=== PATIENT | female | born 1950 | race African-American/Black ===

== ENCOUNTER 2016-06-18 08:00 | Inpatient (IN) | payer MEDICARE, MEDICAID ==
[~2016-06-18] VITALS: Ht 157.5 cm; Wt 52.6 kg
[2016-06-18] VITALS (45 sets, daily range): BP systolic 85–145; BP diastolic 51–97; PULSE 68–105; RESP 0–25; TEMP 97.7; Ht 157.5 cm; Wt 52.6 kg
[~2016-06-18 08:00] MED LIST: ACID1TAB14 PO; ALPR0.5T PO; ASCO500S2 PO; ATOR20TA38 PO; CLOP75TA27 PO; DIAZ10TA4 PO; DOCU-144 PO; DOXA2TAB61 PO; DULO20CA43 PO; FAMO20TA18 PO; FER325 PO; GABA300C16 PO; IPRA3AMP INHALATION; LEVO125T79 PO; LOSA50TA2 PO; METO-429 PO; MORP60TA37 PO; PANT40TA4 PO; ZOLP5TAB PO
[2016-06-18] MEDS ORDERED: CEFEPIME 2GM/50 ML (PMX) 50 ML IVPB STA (08:15)
[2016-06-18] MEDS ORDERED: SODIUM CHLORIDE 0.9% 1L BAG IV* STA (08:15)
[2016-06-18] MEDS ORDERED: VANCOMYCIN 1 GM (PMX) 250 ML IVPB ONE (08:30)
[2016-06-18 08:55] LABS: AADO2 Arterial 257.2 mmHg (7.0-24.0); Allen Test ACCEPTAB; Arterial Base Excess 3.5 mmol/L (-3.0-3); Arterial COHb 0.2 % (0.0-3.0); Arterial Fraction of Oxyhgb 99.3 % (93.0-99.0); Arterial HCO3 29.9 mmol/L (22.0-26.0); Arterial MetHb 0.2 % (0.0-1.5); Arterial Total Hemglobin 9.6 g/dl (12.0-18.0); MODE VENT - AC
[2016-06-18 08:59] LABS: BASOPHIL # 0.1 10^3/ul (0.0-0.1); BASOPHILS % 0.6 % (0.0-2.0); EOSINOPHILS # 0.1 10^3/ul (0.0-0.5); EOSINOPHILS % 0.6 % (0.0-7.0); HEMATOCRIT 27.9 % (37.0-47.0); HEMOGLOBIN 8.8 g/dl (12.0-16.0); LYMPHOCYTES # 1.4 10^3/ul (0.8-2.9); LYMPHOCYTES % 14.4 % (15.0-51.0); MEAN CORPUSCULAR HEMOGLOBIN 24.8 pg (29.0-33.0); MEAN CORPUSCULAR HGB CONC 31.7 g/dl (32.0-37.0); MEAN CORPUSCULAR VOLUME 78.3 fl (82.0-101.0); MEAN PLATELET VOLUME 6.4 fl (7.4-10.4); MONOCYTE # 1.1 10^3/ul (0.3-0.9); MONOCYTES % 11.8 % (0.0-11.0); NEUTROPHIL # 6.9 10^3/ul (1.6-7.5); NEUTROPHILS % 72.6 % (39.0-77.0); PLATELET COUNT 450 10^3/UL (140-440); RED BLOOD COUNT 3.56 10^6/ul (4.20-5.40); RED CELL DISTRIBUTION WIDTH 22.4 % (11.5-14.5); UNCORRECTED WBC 9.6 10^3/ul (4.8-10.8); WHITE BLOOD COUNT 9.6 10^3/ul (4.8-10.8)
--- NOTE | 2016-06-18 08:59 | RADRPT ---
PROCEDURE: Chest x-ray CLINICAL INDICATION: Pain. TECHNIQUE: One-view frontal. COMPARISON: 06/02/2016 FINDINGS: The cardiac silhouette is normal. Allowing for differences in technique, no significant change is noted and a 6 cm by 5 cm mass in the left lower lung zone. Mild bibasilar atelectatic changes are noted. No pneumothorax is noted. Endotracheal tube is located approximately 2 cm above the laura. Left arm approach PICC line in the superior vena cava is again noted. IMPRESSION: 1. No definite change in mass density in the left lower lung zone. 2. Mild bibasilar atelectatic changes. 3. Endotracheal tube in good position above the laura. RPTAT: HH .Curtis Kirby MD, Date Time Electronically viewed and signed by .Curtis Kirby MD, on 06/18/2016 08:58 .G/
[2016-06-18] MEDS ORDERED: MIDAZOLAM 1 MG/ML 2 ML INJ IV ONE (09:00)
[2016-06-18] MEDS ORDERED: SUCCINYLCHOLINE CHLORIDE 100 MG/5 ML SYG IV ONE (09:00)
[2016-06-18] MEDS ORDERED: NORepinephrine 8MG/250 ML (PMX 250 ML IV SCH ×2 (09:00→18:00)
[2016-06-18 09:09] LABS: ALBUMIN 2.8 g/dl (3.3-4.9); INR 1.16; PROTIME 14.8 Sec (12.2-14.2); PT RATIO 1.2
[2016-06-18 09:10] LABS: PARTIAL THROMBOPLASTIN TIME 38.8 Sec (25.0-35.0); POTASSIUM 4.1 mmol/L (3.5-5.1)
[2016-06-18 09:12] LABS: ADD UMIC YES; ALBUMIN/GLOBULIN RATIO 0.77; BILIRUBIN,INDIRECT 0.2 mg/dl (0-1.1); BILIRUBIN,TOTAL 0.2 mg/dl (0.2-1.3); CREATININE 1.54 mg/dl (0.44-1.00); TOTAL PROTEIN 6.4 g/dl (6.1-8.1); URINE BILIRUBIN (Dip) NEGATIVE (NEGATIVE); URINE BLOOD (Dip) 1+ (NEGATIVE); URINE COLOR DK. YELLOW (YELLOW); URINE GLUCOSE (Dip) NEGATIVE (NEGATIVE); URINE KETONES (Dip) NEGATIVE (NEGATIVE); URINE LEUKOCYTE ESTERASE (Dip) 3+ (NEGATIVE); URINE NITRITE (Dip) NEGATIVE (NEGATIVE); URINE TOTAL PROTEIN (Dip) 2+ (NEGATIVE); URINE UROBILINOGEN (Dip) 0.2 E.U./dL (0.1-1.0)
[2016-06-18 09:13] LABS: CONDITION 1; LH ANALYZER COMMENTS 1
[2016-06-18 09:23] LABS: BACTERIA,URINE MODERATE
[2016-06-18 09:24] LABS: TROPONIN-I 0.02 ng/ml (0.00-0.12)
[2016-06-18] MEDS: MIDAZOLAM 50 MG in DEXTROSE 5% 40 ML IV SCH ×3 (09:28→19:10)
--- NOTE | 2016-06-18 09:32 | RADRPT ---
PROCEDURE: CT Brain without contrast. CLINICAL INDICATION: Neurologic deficit TECHNIQUE: A CT of the brain was performed on multidetector high-resolution CT scanner utilizing a xial sections from the skull base through the vertex without contrast. DOSE: CTDI = 44 mGy and the DLP = 720 mGy-cm. COMPARISON: CT Brain 03/14/2016 FINDINGS: No acute intracranial hemorrhage, significant mass effect or midline shift. Patchy hypoattenuation o f the cerebral white matter is most consistent with mildchronic microvascular ischemic changes. Athe rosclerotic calcifications of the cavernous segments of the internal carotid arteries are seen. 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 The ventricles are stable size. No significant opacification of the visualized paranasal sinuses or mastoids. IMPRESSION: No significant change. No acute intracranial hemorrhage or significant mass effect. Mild chronic microvascular disease. Chronic lacunar infarcts in the right caudate and left thalamus. RPTAT: AA .Reymundo Thomas MD, Date Time Electronically viewed and signed by .Reymundo Thomas MD, on 06/18/2016 09:31 .T/
--- NOTE | 2016-06-18 10:59 | ERA ---
ER Documentation Chief Complaint Date/Time DATE: 06/18/16 TIME: 10:49 Chief Complaint BIB RA90 FROM [facility]. EVAL OF HYPOTENSION HPI Patient was brought from [facility] with hypotension and altered mental status. She was recently discharged from the hospital on Sunday for pneumonia. Unfortunately the patient is unable to give us any information secondary to her altered mental status. On arrival it is noted that she has no gag reflex. We immediately set up for intubation. ROS All systems reviewed and are negative except as per history of present illness. Medications Home Meds Active Scripts Pantoprazole* (Pantoprazole*) 40 Mg Tablet.dr, 40 MG PO BID@06,18 for 30 Days Prov:JILL MYERS 01/04/16 Losartan Potassium* (Cozaar*) 50 Mg Tablet, 50 MG PO DAILY for 30 Days, TAB Prov:REGIDORJILL 01/04/16 Ferrous Sulfate* (Ferrous Sulfate*) 325 Mg Tabec, 325 MG PO BID for 30 Days, TAB Prov:JILL MYERS 01/04/16 Duloxetine Hcl* (Cymbalta*) 20 Mg Capsule.dr, 20 MG PO DAILY for 30 Days Prov:REGJILL KENYON 01/04/16 Docusate Sodium* (Colace*) 100 Mg Capsule, 100 MG PO Q12H Y for CONSTIPATION, # 30 CAP Prov:JILL MYERS 01/04/16 Doxazosin Mesylate* (Cardura*) 2 Mg Tablet, 2 MG PO QPM for 30 Days, TAB Prov:JILL MYERS 01/04/16 Reported Medications Alprazolam* (Xanax*) 0.5 Mg Tab, 0.5 MG PO Q12 Y for ANXIETY, TAB 05/23/16 Levothyroxine Sodium* (Synthroid*) 125 Mcg Tablet, 125 MCG PO BEFORE BREAKFAST, #30 TAB 05/23/16 Clopidogrel Bisulfate (Clopidogrel) 75 Mg Tablet, 75 MG PO DAILY, #30 TAB 05/23/16 Metoprolol Tartrate* (Lopressor*) 50 Mg Tab, 50 MG PO BID, #60 TAB hold if SBP <110 or HR <60 05/23/16 Atorvastatin Calcium* (Atorvastatin Calcium*) 20 Mg Tablet, 20 MG PO QHS, #30 TAB 05/23/16 Lactobacillus Acidoph/Bulgaricus* (Floranex*) 1 Each Tablet, 1 TAB.CHEW PO TID, TAB.CHEW 05/23/16 Gabapentin* (Gabapentin*) 300 Mg Capsule, 300 MG PO TID, #90 CAP 05/23/16 Famotidine* (Famotidine*) 20 Mg Tablet, 20 MG PO DAILY, #30 TAB 05/23/16 Ipratropium-Albuterol (Ipratropium-Albuterol) 0.5-3 Mg/3 Ml Ampul.neb, 3 ML INHALATION Q8 Y for SHORTNESS OF BREATH, #30 VIAL 05/23/16 Ascorbic Acid* (Ascorbic Acid*) 500 Mg/5 Ml Syrup, 500 MG PO BID, #300 ML 05/23/16 Zolpidem Tartrate* (Ambien*) 5 Mg Tablet, 5 MG PO QHS Y for INSOMNIA, #30 TAB 05/23/16 Morphine Sulfate* (Ms Contin*) 60 Mg Tablet.sa, 60 MG PO TID, TAB.SA 01/31/16 Diazepam* (Diazepam*) 10 Mg Tablet, 10 MG PO DAILY, TAB 01/31/16 Gabapentin* (Gabapentin*) 300 Mg Capsule, 300 MG PO TID, #90 CAP 01/31/16 Allergies Allergies: Coded Allergies: Penicillins (Verified Allergy, Intermediate, RASH, 06/18/16) aspirin (Verified Adverse Reaction, Mild, GI DISTRESS, 06/18/16) ibuprofen (Verified Adverse Reaction, Mild, GI DISTRESS, 06/18/16) PMhx/Soc History of Surgery: Yes (see notes) Anesthesia Reaction: No Hx Neurological Disorder: No Hx Respiratory Disorders: Yes (COPD, lung CA, asthma, ) Hx Cardiac Disorders: Yes Hx Psychiatric Problems: No Hx Miscellaneous Medical Probl: Yes (see notes) Hx Alcohol Use: No Hx Substance Use: No Hx Tobacco Use: No Smoking Status: Never smoker Physical Exam Vitals Vital Signs Date Time Temp Pulse Resp B/P Pulse Ox O2 Delivery O2 Flow Rate FiO2 06/18/16 10:40 16 40 06/18/16 10:29 101.4 72 17 111/81 98 Room Air 06/18/16 09:29 101.5 70 17 112/77 98 Room Air 06/18/16 09:02 17 100 06/18/16 08:29 101.8 78 14 41/32 98 Room Air 06/18/16 08:00 87 10 70/45 89 Physical Exam Const: Elderly, frail -German female lying on the bed with no notable gag reflex. Head: Atraumatic Eyes: Normal Conjunctiva ENT: Normal External Ears, Nose and Mouth. Neck: Full range of motion..~ No meningismus. Resp: Poor inspiratory effort with decreased breath sounds in bilateral bases Cardio: Regular rate and rhythm, no murmurs Abd: Soft, non tender, non distended. Normal bowel sounds Skin: No petechiae or rashes Back: No midline or flank tenderness Ext: No cyanosis, or edema Neur: Awake patient moves all 4 extremities but not purposefully Result Diagram: 06/18/16 0840 06/18/16 0840 Results 24 hrs Laboratory Tests Test 06/18/16 08:15 06/18/16 08:40 Arterial Blood HCO3 29.9mmol/L Arterial Blood Base Excess 3.5mmol/L Arterial Blood Oxygen Saturation 99.7mmHG Nader Test ACCEPTAB Arterial Blood Gas Puncture Site Right Radial Arterial Blood Carboxyhemoglobin 0.2% Arterial Blood Date Drawn 06/18/2016 8:45:32 AM Arterial Blood Methemoglobin 0.2% Arterial Blood pCO2 (Temp correct) 55.3mmhg Arterial Blood pH (Temp corrected) 7.351 Arterial Blood pO2 (Temp corrected) 400.5mmHG Blood Gas A-a O2 Differential 257.2mmHg Blood Gas Actual Respiration Rate 17 Blood Gas Low PEEP Setting 5.0cmH2O Blood Gas Modality VENT - AC Blood Gas Notified Time 06/18/2016 8:55:10 AM Blood Gas Notified Whom RT Blood Gas Respiration Rate 16.0 Blood Gas Specimen Source Blood arterial Blood Gas Temperature 37.0C Blood Gas Tidal Volume 450.0mL FiO2 100.0% Oxyhemoglobin Percent 99.3% Total Hemoglobin 9.6g/dl Activated Partial Thromboplast Time 38.8Sec Alanine Aminotransferase (ALT/SGPT) 119IU/L Albumin 2.8g/dl Albumin/Globulin Ratio 0.77 Alkaline Phosphatase 281IU/L Anion Gap 15 Aspartate Amino Transf (AST/SGOT) 116IU/L Basophils # 0.110^3/ul Basophils % 0.6% Blood Morphology Comment Blood Urea Nitrogen 25mg/dl Calcium Level 8.0mg/dl Carbon Dioxide Level 31mmol/L Chloride Level 94mmol/L Creatinine 1.54mg/dl Direct Bilirubin 0.00mg/dl Eosinophils # 0.110^3/ul Eosinophils % 0.6% Globulin 3.60g/dl Glucose Level 66mg/dl Hematocrit 27.9% Hemoglobin 8.8g/dl INR International Normalized Ratio 1.16 Indirect Bilirubin 0.2mg/dl Lactic Acid Level 0.8mmol/L Lymphocytes # 1.410^3/ul Lymphocytes % 14.4% Mean Corpuscular Hemoglobin 24.8pg Mean Corpuscular Hemoglobin Concent 31.7g/dl Mean Corpuscular Volume 78.3fl Mean Platelet Volume 6.4fl Monocytes # 1.110^3/ul Monocytes % 11.8% Neutrophils # 6.910^3/ul Neutrophils % 72.6% Nucleated Red Blood Cells # 0.010^3/ul Nucleated Red Blood Cells % 0.0/100WBC Platelet Count 77816^3/UL Potassium Level 4.1mmol/L Prothrombin Time 14.8Sec Prothrombin Time Ratio 1.2 Red Blood Count 3.5610^6/ul Red Cell Distribution Width 22.4% Sodium Level 136mmol/L Total Bilirubin 0.2mg/dl Total Protein 6.4g/dl Troponin I 0.020ng/ml Urine Bacteria MODERATE Urine Bilirubin NEGATIVE Urine Clarity SLIGHTLY CLOUDY Urine Color DK. YELLOW Urine Epithelial Cells FEW Urine Glucose NEGATIVE% Urine Hemoglobin 1+ Urine Ketones NEGATIVE Urine Leukocyte Esterase 3+ Urine Microscopic RBC 5-10/HPF Urine Microscopic WBC 25-50/HPF Urine Nitrite NEGATIVE Urine Specific [place] 1.025 Urine Total Protein 2+ Urine Urobilinogen 0.2 E.U./dL Urine pH 7.0 White Blood Count 9.610^3/ul Current Medications Medications (Trade) Dose Ordered Sig/Tray Route PRN Reason Start Time Stop Time Status Last Admin Dose Admin Sodium Chloride 1550 ml 1,550 ml BOLUS OVER 2 HOURS STAT IV* 06/18/16 08:15 06/18/16 08:18 DC 06/18/16 08:38 Cefepime HCl 50 ml @ 100 mls/hr ONCE STAT IVPB 06/18/16 08:15 06/18/16 08:44 DC 06/18/16 08:37 Vancomycin HCl (Vancocin) 250 ml @ 125 mls/hr ONCE ONCE IVPB 06/18/16 08:30 06/18/16 10:29 DC 06/18/16 08:30 Succinylcholine Chloride (Anectine Syringe) 100 mg ONCE ONCE IV 06/18/16 09:00 06/18/16 09:01 DC 06/18/16 08:38 Midazolam HCl 2 mg 2 mg ONCE ONCE IV 06/18/16 09:00 06/18/16 09:01 DC 06/18/16 08:38 Norepinephrine 250 ml @ 0 mls/hr TITRATE IV 06/18/16 09:00 06/18/16 08:58 Midazolam HCl/ Dextrose (Versed/D5W) 50 ml @ 0 mls/hr TITRATE IV 06/18/16 09:00 06/18/16 09:28 Procedures/MDM Endotracheal Intubation by me: Pre assessment performed. See preceding note for details. Pre-oxygenation performed with 100% oxygen RSI: Performed w/o complication or hypoxic events. Medications as ordered. Blade: [Mac 4] ET Tube: 7.5] cm Depth: 25] cm at the lip Intubation confirmed by colorimetric CO2, equal breath sounds, quiet over the stomach. Chest X-ray 1V Interpreted by me: ETT above the laura ET tube. Normal soft tissue, No pneumothorax. During the course of her ER stay patient dropped her blood pressure. Levophed was begun at 10 mics per minute. Her blood pressure has stabilized in the 110s. We have not had to increase her Levophed at this time. She is also received IV fluid boluses. There has not been any family members at the bedside. Critical care time of 45 minutes Departure Diagnosis: Primary Impression: Severe sepsis Additional Impressions: Hypotension Qualified Code: I95.89 - Other specified hypotension UTI (urinary tract infection) Qualified Code: N30.00 - Acute cystitis without hematuria Respiratory failure Qualified Code: J96.00 - Acute respiratory failure, unspecified whether with hypoxia or hypercapnia PNA (pneumonia) Qualified Code: J18.9 - Pneumonia of left lower lobe due to infectious organism Altered mental status, unspecified Condition: Critical (ERASED) ADRY MICHELLE Jun 18, 2016 10:59 Arterial Blood pO2 (Temp corrected) 400.5mmHG Blood Gas A-a O2 Differential 257.2mmHg Blood Gas Actual Respiration Rate 17 Blood Gas Low PEEP Setting 5.0cmH2O Blood Gas Modality VENT - AC Blood Gas Notified Time 06/18/2016 8:55:10 AM Blood Gas Notified Whom RT Blood Gas Respiration Rate 16.0 Blood Gas Specimen Source Blood arterial Blood Gas Temperature 37.0C Blood Gas Tidal Volume 450.0mL FiO2 100.0% Oxyhemoglobin Percent 99.3% Total Hemoglobin 9.6g/dl Activated Partial Thromboplast Time 38.8Sec Alanine Aminotransferase (ALT/SGPT) 119IU/L Albumin 2.8g/dl Albumin/Globulin Ratio 0.77 Alkaline Phosphatase 281IU/L Anion Gap 15 Aspartate Amino Transf (AST/SGOT) 116IU/L Basophils # 0.110^3/ul Basophils % 0.6% Blood Morphology Comment Blood Urea Nitrogen 25mg/dl Calcium Level 8.0mg/dl Carbon Dioxide Level 31mmol/L Chloride Level 94mmol/L Creatinine 1.54mg/dl Direct Bilirubin 0.00mg/dl Eosinophils # 0.110^3/ul Eosinophils % 0.6% Globulin 3.60g/dl Glucose Level 66mg/dl Hematocrit 27.9% Hemoglobin 8.8g/dl INR International Normalized Ratio 1.16 Indirect Bilirubin 0.2mg/dl Lactic Acid Level 0.8mmol/L Lymphocytes # 1.410^3/ul Lymphocytes % 14.4% Mean Corpuscular Hemoglobin 24.8pg Mean Corpuscular Hemoglobin Concent 31.7g/dl Mean Corpuscular Volume 78.3fl Mean Platelet Volume 6.4fl Monocytes # 1.110^3/ul Monocytes % 11.8% Neutrophils # 6.910^3/ul Neutrophils % 72.6% Nucleated Red Blood Cells # 0.010^3/ul Nucleated Red Blood Cells % 0.0/100WBC Platelet Count 06540^3/UL Potassium Level 4.1mmol/L Prothrombin Time 14.8Sec Prothrombin Time Ratio 1.2 Red Blood Count 3.5610^6/ul Red Cell Distribution Width 22.4% Sodium Level 136mmol/L Total Bilirubin 0.2mg/dl Total Protein 6.4g/dl Troponin I 0.020ng/ml Urine Bacteria MODERATE Urine Bilirubin NEGATIVE Urine Clarity SLIGHTLY CLOUDY Urine Color DK. YELLOW Urine Epithelial Cells FEW Urine Glucose NEGATIVE% Urine Hemoglobin 1+ Urine Ketones NEGATIVE Urine Leukocyte Esterase 3+ Urine Microscopic RBC 5-10/HPF Urine Microscopic WBC 25-50/HPF Urine Nitrite NEGATIVE Urine Specific [place] 1.025 Urine Total Protein 2+ Urine Urobilinogen 0.2 E.U./dL Urine pH 7.0 White Blood Count 9.610^3/ul Current Medications Medications (Trade) Dose Ordered Sig/Tray Route PRN Reason Start Time Stop Time Status Last Admin Dose Admin Sodium Chloride 1550 ml 1,550 ml BOLUS OVER 2 HOURS STAT IV* 06/18/16 08:15 06/18/16 08:18 DC 06/18/16 08:38 Cefepime HCl 50 ml @ 100 mls/hr ONCE STAT IVPB 06/18/16 08:15 06/18/16 08:44 DC 06/18/16 08:37 Vancomycin HCl (Vancocin) 250 ml @ 125 mls/hr ONCE ONCE IVPB 06/18/16 08:30 06/18/16 10:29 DC 06/18/16 08:30 Succinylcholine Chloride (Anectine Syringe) 100 mg ONCE ONCE IV 06/18/16 09:00 06/18/16 09:01 DC 06/18/16 08:38 Midazolam HCl 2 mg 2 mg ONCE ONCE IV 06/18/16 09:00 06/18/16 09:01 DC 06/18/16 08:38 Norepinephrine 250 ml @ 0 mls/hr TITRATE IV 06/18/16 09:00 06/18/16 08:58 Midazolam HCl/ Dextrose (Versed/D5W) 50 ml @ 0 mls/hr TITRATE IV 06/18/16 09:00 06/18/16 09:28 Procedures/MDM Endotracheal Intubation by me: Pre assessment performed. See preceding note for details. Pre-oxygenation performed with 100% oxygen RSI: Performed w/o complication or hypoxic events. Medications as ordered. Blade: [Mac 4] ET Tube: 7.5] cm Depth: 25] cm at the lip Intubation confirmed by colorimetric CO2, equal breath sounds, quiet over the stomach. Chest X-ray 1V Interpreted by me: ETT above the laura ET tube. Normal soft tissue, No pneumothorax. During the course of her ER stay patient dropped her blood pressure. Levophed was begun at 10 mics per minute. Her blood pressure has stabilized in the 110s. We have not had to increase her Levophed at this time. She is also received IV fluid boluses. There has not been any family members at the bedside. Departure Diagnosis: Primary Impression: Severe sepsis Additional Impressions: Hypotension Qualified Code: I95.89 - Other specified hypotension UTI (urinary tract infection) Qualified Code: N30.00 - Acute cystitis without hematuria Respiratory failure Qualified Code: J96.00 - Acute respiratory failure, unspecified whether with hypoxia or hypercapnia PNA (pneumonia) Qualified Code: J18.9 - Pneumonia of left lower lobe due to infectious organism Altered mental status, unspecified ADRY MICHELLE Jun 18, 2016 10:59
[2016-06-18] MEDS ORDERED: ACETAMINOPHEN 650MG/20.3ML CUP PO PRN (11:30)
[2016-06-18] MEDS ORDERED: ONDANSETRON 4 MG INJ IV PRN (11:30)
[2016-06-18] MEDS: SOD CHLORIDE 0.9% 1,000 ML IV SCH ×2 (12:31→21:07)
--- NOTE | 2016-06-18 18:11 | CONS ---
DATE OF ADMISSION: 06/18/2016 DATE OF CONSULTATION: REASON FOR CONSULTATION: Respiratory failure. HISTORY OF PRESENT ILLNESS: This is an unfortunate 65-year-old lady seen by me on multiple admissio ns and recently discharged from [facility] following a prolonged admission for hyp oxemia and hypercapnia. Apparently, was altered at [facility] facility, found to be in respira tory distress, brought to [facility] Emergency Room for further evaluation. Here, she was unresponsive, requiring emergent intubation and mechanical ventilation. Currently, patient is on mechanical ventilation and sedated. No further details are available. PAST MEDICAL HISTORY: 1. Recurrent hypoxemic and hypercapnic respiratory failure. 2. Underlying chronic obstructive pulmonary disease. 3. Noncompliance. 4. Encephalopathy. MEDICATIONS: Per chart. ALLERGIES 1. PENICILLIN. 2. IBUPROFEN. PHYSICAL EXAMINATION: GENERAL: Chronically ill-appearing lady, appears comfortable at rest, no acute distress. VITAL SIGNS: Currently afebrile, pulse 80, blood pressure 106/76, O2 saturation 96% on FIO2 of 30%. NECK: Supple. No JVD or lymphadenopathy. CARDIAC: S1, S2, no added sounds or murmurs. CHEST: Diminished air entry bilaterally. ABDOMEN: Soft, nontender. No guarding or rebound. EXTREMITIES: No cyanosis, clubbing, edema. NEUROLOGIC: Unable to assess. LABORATORIES: White count 9.6, hemoglobin 8.8, platelets of 450. Chemistry: BUN 25, creatinine 1. 54. DIAGNOSTIC STUDIES: Chest x-ray on admission shows mass, left lower lobe. No change in size. CT b rain shows no acute abnormalities. IMPRESSION: 1. History of chronic obstructive pulmonary disease. 2. History of lung cancer. 3. Recurrent hypoxemic and hypercapnic respiratory failure. 4. Encephalopathy. PLAN: 1. Patient to continue mechanical ventilation. 2. Continue supplemental O2. 3. Wound care. 4. Deep venous thrombosis and gastrointestinal prophylaxis. 5. Consider palliative care evaluation for recurrent hypoxemic, hypercapnic respiratory failure wit h underlying history of lung cancer. Dictated By: CASSIE MORALEZ/SANDER Conf#: [id number] DID#: [id number]
[2016-06-18] MEDS: FAMOTIDINE 20 MG INJ IV SCH (21:04)
[2016-06-19] VITALS (59 sets, daily range): BP systolic 84–138; BP diastolic 48–89; PULSE 75–108; RESP 0–43
[2016-06-19] MEDS: MIDAZOLAM 50 MG in DEXTROSE 5% 40 ML IV SCH ×3 (00:18→12:07)
[2016-06-19] MEDS ORDERED: MIDAZOLAM 1 MG/ML 2 ML INJ IV ONE (02:30)
[2016-06-19] MEDS ORDERED: NORepinephrine 8MG/250 ML (PMX 250 ML IV ONE (02:30)
[2016-06-19] MEDS ORDERED: SUCCINYLCHOLINE CHLORIDE 100 MG/5 ML SYG IV ONE (02:30)
[2016-06-19 08:05] LABS: AADO2 Arterial 108.4 mmHg (7.0-24.0); Allen Test ACCEPTAB; Arterial COHb 0.4 % (0.0-3.0); Arterial Fraction of Oxyhgb 92.7 % (93.0-99.0); Arterial HCO3 25.2 mmol/L (22.0-26.0); Arterial MetHb 0.3 % (0.0-1.5); Arterial Total Hemglobin 8.5 g/dl (12.0-18.0); MODE VENT - AC
--- NOTE | 2016-06-19 08:15 | RADRPT ---
PROCEDURE: XR Chest. CLINICAL INDICATION: Shortness of breath. TECHNIQUE: Single frontal view. COMPARISON: 06/18/2016. FINDINGS: The endotracheal tube and left arm PICC line remain in satisfactory position. There is a new nasoga stric tube with the tip in the stomach. There is air space disease at the lung bases, slightly wors e than seen previously. The 5.5 cm mass in the left mid to lower lung zone is unchanged. Mild pulm onary edema is unchanged. The heart size is normal. There is no pleural effusion. There is no pneumothorax. IMPRESSION: 1. Nasogastric tube inserted with tip in the stomach. 2. Slightly worse appearance of the lungs. 3. No other new abnormality. RPTAT: QQ .Eduardo Silva MD, MD Date Time Electronically viewed and signed by .Eduardo Silva MD, on 06/19/2016 08:15 .R/
[2016-06-19] MEDS: FAMOTIDINE 20 MG INJ IV SCH (08:34)
[2016-06-19] MEDS: SOD CHLORIDE 0.9% 1,000 ML IV SCH ×2 (08:35→19:36)
[2016-06-19] MEDS: ENOXAPARIN 30 MG/0.3 ML SYG SC SCH (08:53)
--- NOTE | 2016-06-19 11:12 | CONS ---
Date/Time of Note Date/Time of Note DATE: 06/19/16 TIME: 11:11 Consult Date/Type/Reason Admit Date/Time Jun 18, 2016 at 11:17 Initial Consult Date Type of Consultation: pulmonary Subjective Continues mechanical ventilation Awake alert and oriented Denies respiratory distress Currently on low-dose levo fed Objective Vital Signs Date Time Temp Pulse Resp B/P Pulse Ox O2 Delivery O2 Flow Rate FiO2 06/19/16 09:00 94 16 101/66 100 Mechanical Ventilator 06/19/16 08:00 99.8 06/19/16 05:09 30 Intake and Output 06/18/16 06/18/16 06/19/16 15:00 23:00 07:00 Intake Total 375.00 ml 750.79 ml 821.86 ml Output Total 435 ml 260 ml Balance 375.00 ml 315.79 ml 561.86 ml PHYSICAL EXAMINATION GENERAL: Elderly gentleman, intubated on mechanical ventilation, opens eyes and appears somewhat agitated. Orally intubated. VITAL SIGNS: see below. HEENT: Pupils equal, round, and reactive to light. CARDIAC: S1, S2, tachycardia. CHEST: Diminished air entry bilaterally. ABDOMEN: Mildly distended. No bowel sounds. EXTREMITIES: No cyanosis, clubbing or edema. NEUROLOGIC: No focal deficits. Results/Medications Result Diagram: 06/18/16 0840 06/18/16 0840 Results 24 hrs Laboratory Tests Test 06/18/16 15:18 06/18/16 17:15 06/19/16 07:00 Lactic Acid Level 0.7 0.7 Arterial Blood HCO3 25.2 Arterial Blood Base Excess 2.0 Arterial Blood Oxygen Saturation 93.4 L Nader Test ACCEPTAB Arterial Blood Gas Puncture Site Right Radial Arterial Blood Carboxyhemoglobin 0.4 Arterial Blood Date Drawn 06/19/2016 7:35:20 AM Arterial Blood Methemoglobin 0.3 Arterial Blood pCO2 (Temp correct) 33.5 L Arterial Blood pH (Temp corrected) 7.494 H Arterial Blood pO2 (Temp corrected) 66.1 L Blood Gas A-a O2 Differential 108.4 H Blood Gas Actual Respiration Rate 20 Blood Gas Low PEEP Setting 5.0 Blood Gas Modality VENT - AC Blood Gas Notified Time 06/19/2016 8:05:44 AM Blood Gas Notified Whom CW Blood Gas Respiration Rate 16.0 Blood Gas Specimen Source Blood arterial Blood Gas Temperature 37.0 Blood Gas Tidal Volume 450.0 FiO2 30.0 Oxyhemoglobin Percent 92.7 L Total Hemoglobin 8.5 L Medications Current Medications Sodium Chloride (NS) 1,000 ml @ 100 mls/hr Q10H IV Last administered on 08:35; Admin Dose 100 MLS/HR; Start 06/18/16 at 11:15 Ondansetron HCl (Zofran Inj) 4 mg Q6H PRN IV NAUSEA AND/OR VOMITING; Start 06/18 at 11:30 Acetaminophen (Tylenol Liquid) 650 mg Q6H PRN PO PAIN LEVEL 1-3 OR FEVER; Start 06/18/16 at 11:30 Morphine Sulfate (morphine) 2 mg Q4H PRN IV PAIN LEVEL 7-10; Start 06/18/16 at 11:30 Enoxaparin Sodium 30 mg 30 mg DAILY SC Last administered on 06/19/16 08:53; Admin Dose 30 MG; Start 06/19/16 at 09:00 Midazolam HCl 50 mg/Dextrose 50 ml @ 1 mls/hr TITRATE IV Last administered on 06:20; Admin Dose 10 MLS/HR; Start 06/18/16 at 18:00 Norepinephrine/ Dextrose (Levophed/D5W) 500 ml @ 1.87 mls/hr TITRATE IV Last administered on 06/18/16 23:17; Admin Dose 11.25 MLS/HR; Start 06/18/16 at 19:00 Famotidine (Pepcid Iv) 20 mg DAILY IV ; Start 06/20/16 at 09:00 Assessment/Plan Chief Complaint/Hosp Course IMPRESSION: 1. History of chronic obstructive pulmonary disease. 2. History of lung cancer. 3. Recurrent hypoxemic and hypercapnic respiratory failure. 4. Encephalopathy. PLAN: 1. Patient to continue mechanical ventilation. CPAP weaning trial this morning 2. Continue supplemental O2. 3. Wound care. 4. Deep venous thrombosis and gastrointestinal prophylaxis. 5. Consider palliative care evaluation for recurrent hypoxemic, hypercapnic respiratory failure with underlying history of lung cancer. Problems: CASSIE VACA MD, [facility] Jun 19, 2016 11:12
--- NOTE | 2016-06-19 12:37 | HP ---
Date/Time of Note Date/Time of Note DATE: 06/19/16 TIME: 12:33 Assessment/Plan VTE Prophylaxis VTE Prophylaxis Intervention: LMWH Lines/Catheters IV Catheter Type (from Nrs): PICC Line Central line still needed: Yes Urinary Cath still in place: Yes Reason Cath still needed: skin wounds contaminated by urine Assessment/Plan Chief Complaint/Hosp Course 1) respiratory failure - on ventilator - wean as able 2) pneumonia with sepsis - IV antibiotics 3) hypotensioin - on vasopressors 4) COPD - monitor, breathing treatment as needed 5) lung cancer - monitor Problems: HPI/ROS Admit Date/Time Admit Date/Time Jun 18, 2016 at 11:17 Hx of Present Illness Patient with history of COPD, lung cancer, hypertension, recently in the hospital for shortness of breath returns to the emergency room with evidence of pneumonia and respiratory failure. Patient developed difficulty breathing in the emergency room and had to be intubated. Patient was also placed on vasopressors for hypotension. Patient was then admitted to the ICU for further treatment. PMH/Family/Social Past Medical History Lung cancer COPD Medical History: hypertension Social History Alcohol Use: none Smoking Status: Never smoker Exam/Review of Systems Vital Signs Vitals Vital Signs Date Time Temp Pulse Resp B/P Pulse Ox O2 Delivery O2 Flow Rate FiO2 06/19/16 11:30 93 24 115/75 96 06/19/16 11:00 Mechanical Ventilator 06/19/16 08:00 99.8 06/19/16 05:09 30 Intake and Output 06/18/16 06/18/16 06/19/16 15:00 23:00 07:00 Intake Total 375.00 ml 750.79 ml 821.86 ml Output Total 435 ml 340 ml Balance 375.00 ml 315.79 ml 481.86 ml Exam Constitutional: alert, frail Neck: supple Respiratory: diminished breath sounds Cardiovascular: regular rate and rhythm Gastrointestinal: non-tender, soft Extremities: normal pulses Labs Result Diagram: 06/18/1640 06/18/16 0840 Medications Medications Current Medications Sodium Chloride (NS) 1,000 ml @ 100 mls/hr Q10H IV Last administered on t 08:35; Admin Dose 100 MLS/HR; Start 06/18/16 at 11:15 Ondansetron HCl (Zofran Inj) 4 mg Q6H PRN IV NAUSEA AND/OR VOMITING; Start 06/18 at 11:30 Acetaminophen (Tylenol Liquid) 650 mg Q6H PRN PO PAIN LEVEL 1-3 OR FEVER; Start 06/18/16 at 11:30 Morphine Sulfate (morphine) 2 mg Q4H PRN IV PAIN LEVEL 7-10; Start 06/18/16 at 11:30 Enoxaparin Sodium 30 mg 30 mg DAILY SC Last administered on 06/19/16 08:53; Admin Dose 30 MG; Start 06/19/16 at 09:00 Midazolam HCl 50 mg/Dextrose 50 ml @ 1 mls/hr TITRATE IV Last administered on 12:07; Admin Dose 10 MLS/HR; Start 06/18/16 at 18:00 Norepinephrine/ Dextrose (Levophed/D5W) 500 ml @ 1.87 mls/hr TITRATE IV Last administered on 06/18/16 23:17; Admin Dose 11.25 MLS/HR; Start 06/18/16 at 19:00 Famotidine (Pepcid Iv) 20 mg DAILY IV ; Start 06/20/16 at 09:00 MICHAEL HOROWITZ Jun 19, 2016 12:37
[2016-06-19 13:13] LABS: AADO2 Arterial 101.5 mmHg (7.0-24.0); Arterial Base Excess -1.1 mmol/L (-3.0-3); Arterial COHb 0.2 % (0.0-3.0); Arterial Fraction of Oxyhgb 93.7 % (93.0-99.0); Arterial HCO3 22.8 mmol/L (22.0-26.0); Arterial MetHb 0.2 % (0.0-1.5); Arterial Total Hemglobin 8.9 g/dl (12.0-18.0); Blood Gas PS 10; MODE VENT - CPAP
[2016-06-19] MEDS: morphine 2 MG INJ IV PRN (20:19)
[2016-06-20] VITALS (23 sets, daily range): BP systolic 90–144; BP diastolic 57–96; PULSE 76–108; RESP 17–24
[2016-06-20] MEDS: morphine 2 MG INJ IV PRN ×6 (00:59→19:11)
[2016-06-20 05:01] LABS: CREATININE 0.45 mg/dl (0.44-1.00)
[2016-06-20 05:02] LABS: CALCIUM 7.7 mg/dl (8.4-10.2); MAGNESIUM 1.4 mg/dl (1.7-2.5); PHOSPHORUS 3.1 mg/dl (2.5-4.9)
[2016-06-20 05:04] LABS: POTASSIUM 2.9 mmol/L (3.5-5.1)
[2016-06-20 05:09] LABS: BASOPHILS % 0.4 % (0.0-2.0); EOSINOPHILS % 0.7 % (0.0-7.0); HEMATOCRIT 21.8 % (37.0-47.0); LYMPHOCYTES # 1.3 10^3/ul (0.8-2.9); LYMPHOCYTES % 19.4 % (15.0-51.0); MEAN CORPUSCULAR HEMOGLOBIN 24.7 pg (29.0-33.0); MEAN CORPUSCULAR HGB CONC 31.8 g/dl (32.0-37.0); MEAN CORPUSCULAR VOLUME 77.6 fl (82.0-101.0); MEAN PLATELET VOLUME 6.3 fl (7.4-10.4); MONOCYTES % 14.7 % (0.0-11.0); NEUTROPHIL # 4.2 10^3/ul (1.6-7.5); NEUTROPHILS % 64.8 % (39.0-77.0); PLATELET COUNT 462 10^3/UL (140-440); RED CELL DISTRIBUTION WIDTH 21.3 % (11.5-14.5); UNCORRECTED WBC 6.5 10^3/ul (4.8-10.8); WHITE BLOOD COUNT 6.5 10^3/ul (4.8-10.8)
[2016-06-20 05:11] LABS: CONDITION 1; LH ANALYZER COMMENTS 1
[2016-06-20 05:12] LABS: HEMOGLOBIN 6.9 g/dl (12.0-16.0)
[2016-06-20] MEDS: SOD CHLORIDE 0.9% 1,000 ML IV SCH ×2 (06:20→13:15)
[2016-06-20] MEDS ORDERED: MAGNESIUM SULFATE 2 GM/50 ML 50 ML IVPB ONE (06:30)
[2016-06-20] MEDS: POTASSIUM CHLORIDE 250 ML IVPB SCH ×2 (06:42→13:04)
[2016-06-20 08:09] LABS: AADO2 Arterial 51.1 mmHg (7.0-24.0); Allen Test ACCEPTAB; Arterial Base Excess 0.2 mmol/L (-3.0-3); Arterial COHb 0.5 % (0.0-3.0); Arterial Fraction of Oxyhgb 97.6 % (93.0-99.0); Arterial HCO3 24.9 mmol/L (22.0-26.0); Arterial MetHb 0.2 % (0.0-1.5); Arterial Total Hemglobin 8.4 g/dl (12.0-18.0); MODE NASAL CANNULA
[2016-06-20] MEDS: ENOXAPARIN 30 MG/0.3 ML SYG SC SCH (08:13)
[2016-06-20] MEDS: FAMOTIDINE 20 MG INJ IV SCH (08:16)
--- NOTE | 2016-06-20 08:23 | RADRPT ---
PROCEDURE: XR Chest 1 View. CLINICAL INDICATION: Shortness of breath, pneumonia, congestive heart failure TECHNIQUE: AP view of the chest were obtained. COMPARISON: November 17, [address] chest December 21, 2015 FINDINGS: Heart size is within normal limits. Calcified atherosclerosis is seen in the aorta. Endotracheal a nd nasogastric tubes have been removed. Left-sided PICC line is stable. Interstitial prominence in both lungs is unchanged. 6.3 cm rounded mass-like density in the left midlung is unchanged. Patch y atelectasis versus infiltrates in the left lower lobe are stable. Osseous structures are osteopeni c, but grossly intact. IMPRESSION: Calcified atherosclerosis in the aorta. Stable interstitial prominence in both lungs. Stable 6.3 cm rounded mass-like density in the left mid lung. Stable patchy atelectasis versus mild infiltrates in the left lower lobe. Interval extubation and nasogastric tube removals. RPTAT: AA .Mariusz Vo MD, Date Time Electronically viewed and signed by .Mariusz Vo MD, on 06/20/2016 08:22 .P/
--- NOTE | 2016-06-20 10:18 | CONS ---
Date/Time of Note Date/Time of Note DATE: 06/20/16 TIME: 10:17 Consult Date/Type/Reason Admit Date/Time Jun 18, 2016 at 11:17 Type of Consultation: pulmonary Subjective Extubated yesterday Weaned off pressors this morning. Awake alert Objective Vital Signs Date Time Temp Pulse Resp B/P Pulse Ox O2 Delivery O2 Flow Rate FiO2 06/20/16 09:00 82 21 104/76 Nasal Cannula 06/20/16 08:00 98.7 06/20/16 05:00 100 06/20/16 03:32 3.0 06/19/16 12:20 30 Intake and Output 06/19/16 06/19/16 06/20/16 15:00 23:00 07:00 Intake Total 1100 ml 1700 ml 700 ml Output Total 385 ml 250 ml 200 ml Balance 715 ml 1450 ml 500 ml PHYSICAL EXAMINATION GENERAL: Elderly gentleman, comfortable. VITAL SIGNS: see below. HEENT: Pupils equal, round, and reactive to light. CARDIAC: S1, S2, tachycardia. CHEST: Diminished air entry bilaterally. ABDOMEN: Mildly distended. No bowel sounds. EXTREMITIES: No cyanosis, clubbing or edema. NEUROLOGIC: No focal deficits. Results/Medications Result Diagram: 06/20/16 0400 06/20/16 0400 Results 24 hrs Laboratory Tests Test 06/19/16 12:30 06/19/16 19:30 06/20/16 04:00 06/20/16 07:00 Arterial Blood HCO3 22.8 24.9 Arterial Blood Base Excess -1.1 0.2 Arterial Blood Oxygen Saturation 94.1 L 98.3 H Nader Test N/A ACCEPTAB Arterial Blood Gas Puncture Site Right Brachial Right Radial Arterial Blood Carboxyhemoglobin 0.2 0.5 Arterial Blood Date Drawn 06/19/2016 12:55:27 PM 06/20/2016 7:30:09 AM Arterial Blood Methemoglobin 0.2 0.2 Arterial Blood pCO2 (Temp correct) 34.5 L 40.5 Arterial Blood pH (Temp corrected) 7.438 7.406 Arterial Blood pO2 (Temp corrected) 71.9 L 115.2 H Blood Gas A-a O2 Differential 101.5 H 51.1 H Blood Gas Actual Respiration Rate 30 Blood Gas Low PEEP Setting 5.0 Blood Gas Modality VENT - CPAP NASAL CANNULA Blood Gas Notified Time 06/19/2016 1:13:27 PM 06/20/2016 8:08:56 AM Blood Gas Notified Whom AT D Blood Gas Pressure Support 10 Blood Gas Specimen Source Blood arterial Blood arterial Blood Gas Temperature 37.0 37.0 FiO2 30.0 30.0 Oxyhemoglobin Percent 93.7 97.6 Total Hemoglobin 8.9 L 8.4 L Prealbumin 5.1 L Anion Gap 12 Basophils # 0.0 Basophils % 0.4 Blood Morphology Comment Blood Urea Nitrogen 10 # Calcium Level 7.7 L Carbon Dioxide Level 27 Chloride Level 102 Creatinine 0.45 # Eosinophils # 0.0 Eosinophils % 0.7 Glucose Level 55 #L Hematocrit 21.8 #L Hemoglobin 6.9 #*L Lymphocytes # 1.3 Lymphocytes % 19.4 Magnesium Level 1.4 L Mean Corpuscular Hemoglobin 24.7 L Mean Corpuscular Hemoglobin Concent 31.8 L Mean Corpuscular Volume 77.6 L Mean Platelet Volume 6.3 L Monocytes # 1.0 H Monocytes % 14.7 H Neutrophils # 4.2 Neutrophils % 64.8 Nucleated Red Blood Cells # 0.0 Nucleated Red Blood Cells % 0.0 Phosphorus Level 3.1 Platelet Count 462 H Potassium Level 2.9 *L Red Blood Count 2.80 #L Red Cell Distribution Width 21.3 H Sodium Level 138 White Blood Count 6.5 # Medications Current Medications Sodium Chloride (NS) 1,000 ml @ 100 mls/hr Q10H IV Last administered on 06:20; Admin Dose 100 MLS/HR; Start 06/18/16 at 11:15 Ondansetron HCl (Zofran Inj) 4 mg Q6H PRN IV NAUSEA AND/OR VOMITING; Start 06/18 at 11:30 Acetaminophen (Tylenol Liquid) 650 mg Q6H PRN PO PAIN LEVEL 1-3 OR FEVER; Start 06/18/16 at 11:30 Morphine Sulfate (morphine) 2 mg Q4H PRN IV PAIN LEVEL 7-10 Last administered on 06/20/16 09:47; Admin Dose 2 MG; Start 06/18/16 at 11:30 Enoxaparin Sodium 30 mg 30 mg DAILY SC Last administered on 06/20/16 08:13; Admin Dose 30 MG; Start 06/19/16 at 09:00 Midazolam HCl 50 mg/Dextrose 50 ml @ 1 mls/hr TITRATE IV Last administered on 12:07; Admin Dose 10 MLS/HR; Start 06/18/16 at 18:00 Norepinephrine/ Dextrose (Levophed/D5W) 500 ml @ 1.87 mls/hr TITRATE IV Last administered on 06/18/16 23:17; Admin Dose 11.25 MLS/HR; Start 06/18/16 at 19:00 Famotidine 20 mg 20 mg DAILY IV Last administered on 06/20/16 08:16; Admin Dose 20 MG; Start 06/20/16 at 09:00 Potassium Chloride 250 ml @ 62.5 mls/hr Q4H IVPB Last administered on 06:42; Admin Dose 62.5 MLS/HR; Start 06/20/16 at 06:30; Stop 06/20/16 at 14: 29 Cefepime HCl (Maxipime 1gm/50 ml (Pmx)) 50 ml @ 100 mls/hr Q12 IVPB ; Start 06/20/16 at 11:00 Assessment/Plan Chief Complaint/Hosp Course IMPRESSION: 1. History of chronic obstructive pulmonary disease. 2. History of lung cancer. 3. Recurrent hypoxemic and hypercapnic respiratory failure. 4. Encephalopathy. PLAN: 1. Continue O2. 2. Continue supplemental O2. 3. Wound care. 4. Deep venous thrombosis and gastrointestinal prophylaxis. 5. Consider palliative care evaluation for recurrent hypoxemic, hypercapnic respiratory failure with underlying history of lung cancer. Problems: CASSIE VACA MD, [facility] Jun 20, 2016 10:18
[2016-06-20] MEDS: CEFEPIME 1GM/50 ML (PMX) 50 ML IVPB SCH ×2 (11:00→21:43)
--- NOTE | 2016-06-20 11:09 | PN ---
Date/Time of Note Date/Time of Note DATE: 06/20/16 TIME: 11:08 Assessment/Plan VTE Prophylaxis VTE Prophylaxis Intervention: LMWH Lines/Catheters IV [facility] Type (from [facility]): PICC Line Central line still needed: Yes Urinary Cath still in place: Yes Reason Cath still needed: skin wounds contaminated by urine Assessment/Plan Chief Complaint/Hosp Course 1) respiratory failure - resolved 2) pneumonia with sepsis - IV antibiotics 3) hypotensioin - resolved 4) COPD - monitor, breathing treatment as needed 5) lung cancer - monitor Problems: Subjective 24 Hr Interval Summary Free Text/Dictation Patient doing better, off ventilator Exam/Review of Systems Vital Signs Vitals Vital Signs Date Time Temp Pulse Resp B/P Pulse Ox O2 Delivery O2 Flow Rate FiO2 06/20/16 09:00 82 21 104/76 Nasal Cannula 06/20/16 08:00 98.7 06/20/16 05:00 100 06/20/16 03:32 3.0 06/19/16 12:20 30 Intake and Output 06/19/16 06/19/16 06/20/16 15:00 23:00 07:00 Intake Total 1100 ml 1700 ml 700 ml Output Total 385 ml 250 ml 200 ml Balance 715 ml 1450 ml 500 ml Exam Constitutional: frail, well developed Head: atraumatic, normocephalic Neck: supple Respiratory: diminished breath sounds Cardiovascular: regular rate and rhythm Gastrointestinal: non-tender, soft Extremities: normal pulses Results Result Diagram: 06/20/16 0400 06/20/16 0400 Results 24 hrs Laboratory Tests Test 06/19/16 12:30 06/19/16 19:30 06/20/16 04:00 06/20/16 07:00 Arterial Blood HCO3 22.8 24.9 Arterial Blood Base Excess -1.1 0.2 Arterial Blood Oxygen Saturation 94.1 L 98.3 H Nader Test N/A ACCEPTAB Arterial Blood Gas Puncture Site Right Brachial Right Radial Arterial Blood Carboxyhemoglobin 0.2 0.5 Arterial Blood Date Drawn 06/19/2016 12:55:27 PM 06/20/2016 7:30:09 AM Arterial Blood Methemoglobin 0.2 0.2 Arterial Blood pCO2 (Temp correct) 34.5 L 40.5 Arterial Blood pH (Temp corrected) 7.438 7.406 Arterial Blood pO2 (Temp corrected) 71.9 L 115.2 H Blood Gas A-a O2 Differential 101.5 H 51.1 H Blood Gas Actual Respiration Rate 30 Blood Gas Low PEEP Setting 5.0 Blood Gas Modality VENT - CPAP NASAL CANNULA Blood Gas Notified Time 06/19/2016 1:13:27 PM 06/20/2016 8:08:56 AM Blood Gas Notified Whom AT [facility] Blood Gas Pressure Support 10 Blood Gas Specimen Source Blood arterial Blood arterial Blood Gas Temperature 37.0 37.0 FiO2 30.0 30.0 Oxyhemoglobin Percent 93.7 97.6 Total Hemoglobin 8.9 L 8.4 L Prealbumin 5.1 L Anion Gap 12 Basophils # 0.0 Basophils % 0.4 Blood Morphology Comment Blood Urea Nitrogen 10 # Calcium Level 7.7 L Carbon Dioxide Level 27 Chloride Level 102 Creatinine 0.45 # Eosinophils # 0.0 Eosinophils % 0.7 Glucose Level 55 #L Hematocrit 21.8 #L Hemoglobin 6.9 #*L Lymphocytes # 1.3 Lymphocytes % 19.4 Magnesium Level 1.4 L Mean Corpuscular Hemoglobin 24.7 L Mean Corpuscular Hemoglobin Concent 31.8 L Mean Corpuscular Volume 77.6 L Mean Platelet Volume 6.3 L Monocytes # 1.0 H Monocytes % 14.7 H Neutrophils # 4.2 Neutrophils % 64.8 Nucleated Red Blood Cells # 0.0 Nucleated Red Blood Cells % 0.0 Phosphorus Level 3.1 Platelet Count 462 H Potassium Level 2.9 *L Red Blood Count 2.80 #L Red Cell Distribution Width 21.3 H Sodium Level 138 White Blood Count 6.5 # Medications Medications Current Medications Sodium Chloride (NS) 1,000 ml @ 100 mls/hr Q10H IV Last administered on 06:20; Admin Dose 100 MLS/HR; Start 06/18/16 at 11:15 Ondansetron HCl (Zofran Inj) 4 mg Q6H PRN IV NAUSEA AND/OR VOMITING; Start 06/18 at 11:30 Acetaminophen (Tylenol Liquid) 650 mg Q6H PRN PO PAIN LEVEL 1-3 OR FEVER; Start 06/18/16 at 11:30 Morphine Sulfate (morphine) 2 mg Q4H PRN IV PAIN LEVEL 7-10 Last administered on 06/20/16 09:47; Admin Dose 2 MG; Start 06/18/16 at 11:30 Enoxaparin Sodium 30 mg 30 mg DAILY SC Last administered on 06/20/16 08:13; Admin Dose 30 MG; Start 06/19/16 at 09:00 Midazolam HCl 50 mg/Dextrose 50 ml @ 1 mls/hr TITRATE IV Last administered on 12:07; Admin Dose 10 MLS/HR; Start 06/18/16 at 18:00 Norepinephrine/ Dextrose (Levophed/D5W) 500 ml @ 1.87 mls/hr TITRATE IV Last administered on 06/18/16 23:17; Admin Dose 11.25 MLS/HR; Start 06/18/16 at 19:00 Famotidine 20 mg 20 mg DAILY IV Last administered on 06/20/16 08:16; Admin Dose 20 MG; Start 06/20/16 at 09:00 Potassium Chloride 250 ml @ 62.5 mls/hr Q4H IVPB Last administered on 06:42; Admin Dose 62.5 MLS/HR; Start 06/20/16 at 06:30; Stop 06/20/16 at 14: 29 Cefepime HCl (Maxipime 1gm/50 ml (Pmx)) 50 ml @ 100 mls/hr Q12 IVPB ; Start 06/20/16 at 11:00 MICHAEL HOROWITZ Jun 20, 2016 11:09
--- NOTE | 2016-06-20 11:58 | PN ---
DATE: 06/20/2016 INFECTIOUS DISEASE PROGRESS NOTE SUBJECTIVE: The patient was extubated and currently off pressors. She is alert, awake, looks comfo rtable. Afebrile. OBJECTIVE VITAL SIGNS: Temperature 98.7, pulse 82, respirations 20, blood pressure 104/76, saturation 100 on nasal cannula. WBC today 6.5, H and H 6.9 and 21.8, platelets 462, no bands, no shift. BUN 10, creatinine 0.45. MICROBIOLOGY: Urine culture growing gram-negative rods. Blood culture remains negative. DIAGNOSTICS: Chest x-ray this morning revealed stable patchy atelectasis in the left lower lobe. INDWELLINGS: Left upper extremity PICC line placed on May 24, George catheter. ANTIMICROBIALS: The patient is status post: 1. Vancomycin. 2. Cefepime. PHYSICAL EXAMINATION: GENERAL: This is a fragile, elderly woman who is alert, in no distress. HEENT: Head atraumatic, normocephalic. Sclerae anicteric. Buccal mucosa dry. NECK: Supple, trachea midline. CHEST: Rise symmetrical. Breath sounds clear, diminished to bases. HEART: S1, S2. ABDOMEN: Soft, bowel sounds present. EXTREMITIES: Without cyanosis. SKIN: No jaundice, no cyanosis. The patient has multiple necrotic wounds. ASSESSMENT 1. Sepsis, status post shock secondary to #2. 2. Polymicrobial urinary tract infection. 3. Acute respiratory failure, status post intubated, now extubated. 4. Chronic obstructive pulmonary disease. 5. History of lung cancer. 6. Multiple decubitus. 7. History of Clostridium difficile colitis and methicillin-resistant Staphylococcus aureus nares c olonization. PLAN: The patient remains stable post extubation. We will keep her on cefepime. Await for final c ultures. Continue anti-aspiration measures, local wound care. Follow pulmonary recommendations. Dictated By: RUBIN MAYEN ELEVATOR REPAIRER for [employer] Conf#: [id number] DID#: [id number]
[2016-06-20] MEDS ORDERED: ALTEPLASE (CATHFLO) 2 MG INJ CATHETER ONE ×2 (12:00→13:30)
--- NOTE | 2016-06-20 13:23 | CONS ---
Date/Time of Note Date/Time of Note DATE: 06/20/16 TIME: 13:16 Assessment/Plan Assessment/Plan Additional Assessment/Plan Respiratory failure status post extubation Acute decompensated diastolic congestive heart failure Likely pneumonia COPD exacerbation Tricuspid valve regurgitation Pulmonary hypertension Lung malignancy Hypotension, improved Acute blood loss anemia Hypokalemia -Patient extubated yesterday and currently off IV pressors. She is severely anemic and undergoing blood transfusion. Agree with holding antiplatelet therapy. Given patient just recently off pressors and evidence of acute blood loss, would refrain from any diuretics at the current time until blood pressure trend remained stable. Antibiotics as per the primary team. Potassium and magnesium supplementation has already been ordered. Consultation Date/Type/Reason Admit Date/Time Jun 18, 2016 at 11:17 Type of Consultation: cv Reason for Consultation Respiratory failure Hx of Present Illness This is a 65 year old female with extensive past medical history was recently at our facility for respiratory failure secondary to pneumonia and decompensated congestive heart failure. Patient was discharge to nursing facility. Patient was brought back secondary to altered mental status, hypotension and respiratory failure. Patient was intubated, but on IV pressors and manage in the ICU. Patient was extubated yesterday and currently weaned off IV pressors. She currently denies any chest pain, shortness of breath, or abdominal pain. She denies any fevers or chills or dizziness. She tells me she was coughing for a day or 2 prior to coming back to the hospital and does remember having chills. 12 point review of systems was performed with all pertinent positives and negatives mentioned above and all else is negative Past Medical History Diastolic congestive heart failure COPD Tricuspid valve regurgitation Pulmonary hypertension Lung malignancy Hypertension Medical History: hypertension Family History Significant Family History: no pertinent family hx Social History Alcohol Use: none Smoking Status: Former smoker Other Social History From [facility] facility Exam/Review of Systems Vital Signs Vitals Vital Signs Date Time Temp Pulse Resp B/P Pulse Ox O2 Delivery O2 Flow Rate FiO2 06/20/16 12:00 90 06/20/16 09:00 21 104/76 Nasal Cannula 06/20/16 08:00 98.7 06/20/16 05:00 100 06/20/16 03:32 3.0 06/19/16 12:20 30 Intake and Output 06/19/16 06/19/16 06/20/16 15:00 23:00 07:00 Intake Total 1100 ml 1700 ml 700 ml Output Total 385 ml 250 ml 200 ml Balance 715 ml 1450 ml 500 ml Exam Follows commands, no apparent distress Constitutional: alert, frail Head: normocephalic Neck: supple Respiratory: other (course breath sounds bilaterally with mild scattered crackles, no wheezing) Cardiovascular: other (S1 and S2 heard), regular rate and rhythm Gastrointestinal: bowel sounds, non-tender, other (no guarding), soft Extremities: other (no edema) Neurological: other (follows commands) Results Result Diagram: 06/20/16 0400 06/20/16 0400 Results 24 hrs Laboratory Tests Test 06/19/16 19:30 06/20/16 04:00 06/20/16 07:00 Prealbumin 5.1 L Anion Gap 12 Basophils # 0.0 Basophils % 0.4 Blood Morphology Comment Blood Urea Nitrogen 10 # Calcium Level 7.7 L Carbon Dioxide Level 27 Chloride Level 102 Creatinine 0.45 # Eosinophils # 0.0 Eosinophils % 0.7 Glucose Level 55 #L Hematocrit 21.8 #L Hemoglobin 6.9 #*L Lymphocytes # 1.3 Lymphocytes % 19.4 Magnesium Level 1.4 L Mean Corpuscular Hemoglobin 24.7 L Mean Corpuscular Hemoglobin Concent 31.8 L Mean Corpuscular Volume 77.6 L Mean Platelet Volume 6.3 L Monocytes # 1.0 H Monocytes % 14.7 H Neutrophils # 4.2 Neutrophils % 64.8 Nucleated Red Blood Cells # 0.0 Nucleated Red Blood Cells % 0.0 Phosphorus Level 3.1 Platelet Count 462 H Potassium Level 2.9 *L Red Blood Count 2.80 #L Red Cell Distribution Width 21.3 H Sodium Level 138 White Blood Count 6.5 # Arterial Blood HCO3 24.9 Arterial Blood Base Excess 0.2 Arterial Blood Oxygen Saturation 98.3 H Nader Test ACCEPTAB Arterial Blood Gas Puncture Site Right Radial Arterial Blood Carboxyhemoglobin 0.5 Arterial Blood Date Drawn 06/20/2016 7:30:09 AM Arterial Blood Methemoglobin 0.2 Arterial Blood pCO2 (Temp correct) 40.5 Arterial Blood pH (Temp corrected) 7.406 Arterial Blood pO2 (Temp corrected) 115.2 H Blood Gas A-a O2 Differential 51.1 H Blood Gas Modality NASAL CANNULA Blood Gas Notified Time 06/20/2016 8:08:56 AM Blood Gas Notified Whom JLD Blood Gas Specimen Source Blood arterial Blood Gas Temperature 37.0 FiO2 30.0 Oxyhemoglobin Percent 97.6 Total Hemoglobin 8.4 L Medications Medications Current Medications Sodium Chloride (NS) 1,000 ml @ 100 mls/hr Q10H IV Last administered on 06:20; Admin Dose 100 MLS/HR; Start 06/18/16 at 11:15 Ondansetron HCl (Zofran Inj) 4 mg Q6H PRN IV NAUSEA AND/OR VOMITING; Start 06/18 at 11:30 Acetaminophen (Tylenol Liquid) 650 mg Q6H PRN PO PAIN LEVEL 1-3 OR FEVER; Start 06/18/16 at 11:30 Morphine Sulfate (morphine) 2 mg Q4H PRN IV PAIN LEVEL 7-10 Last administered on 06/20/16 09:47; Admin Dose 2 MG; Start 06/18/16 at 11:30 Enoxaparin Sodium 30 mg 30 mg DAILY SC Last administered on 06/20/16 08:13; Admin Dose 30 MG; Start 06/19/16 at 09:00 Midazolam HCl 50 mg/Dextrose 50 ml @ 1 mls/hr TITRATE IV Last administered on 12:07; Admin Dose 10 MLS/HR; Start 06/18/16 at 18:00 Norepinephrine/ Dextrose (Levophed/D5W) 500 ml @ 1.87 mls/hr TITRATE IV Last administered on 06/18/16 23:17; Admin Dose 11.25 MLS/HR; Start 06/18/16 at 19:00 Famotidine 20 mg 20 mg DAILY IV Last administered on 06/20/16 08:16; Admin Dose 20 MG; Start 06/20/16 at 09:00 Potassium Chloride 250 ml @ 62.5 mls/hr Q4H IVPB Last administered on 13:04; Admin Dose 62.5 MLS/HR; Start 06/20/16 at 06:30; Stop 06/20/16 at 14: 29 Cefepime HCl (Maxipime 1gm/50 ml (Pmx)) 50 ml @ 100 mls/hr Q12 IVPB Last administered on 06/20/16 11:00; Admin Dose 100 MLS/HR; Start 06/20/16 at 11:00 Alteplase, Recombinant (Cathflo (Activase)) 2 mg ONCE ONCE CATHETER ; Start 06/20/16 at 13:30; Stop 06/20/16 at 13:31; Status UNV Procedures Procedures ECG done generator first demonstrates sinus rhythm at 79 bpm, QRS 72 ms, nonspecific STT wave abnormalities Artemio Tipton DO Jun 20, 2016 13:23
[2016-06-20] MEDS: ALTEPLASE (CATHFLO) 2 MG INJ CATHETER PRN (14:30)
[2016-06-20 20:59] LABS: HEMOGLOBIN 10.1 g/dl (12.0-16.0)
[2016-06-21] VITALS (17 sets, daily range): BP systolic 93–139; BP diastolic 68–91; PULSE 75–99; RESP 17–28
[2016-06-21] MEDS: SOD CHLORIDE 0.9% 1,000 ML IV SCH ×2 (00:01→08:55)
[2016-06-21] MEDS: morphine 2 MG INJ IV PRN ×8 (00:01→22:03)
[2016-06-21] MEDS: CEFEPIME 1GM/50 ML (PMX) 50 ML IVPB SCH ×2 (08:48→22:29)
[2016-06-21] MEDS: ENOXAPARIN 30 MG/0.3 ML SYG SC SCH (08:53)
[2016-06-21] MEDS: FAMOTIDINE 20 MG INJ IV SCH (08:55)
--- NOTE | 2016-06-21 11:24 | CONS ---
Date/Time of Note Date/Time of Note DATE: 06/21/16 TIME: 11:21 Consult Date/Type/Reason Admit Date/Time Jun 18, 2016 at 11:17 Type of Consultation: Pulm Subjective Awake alert oriented, Objective Vital Signs Date Time Temp Pulse Resp B/P Pulse Ox O2 Delivery O2 Flow Rate FiO2 06/21/16 11:00 85 19 119/82 75 Nasal Cannula 06/21/16 06:00 98.7 06/20/16 23:59 3.0 06/19/16 12:20 30 Intake and Output 06/20/16 06/20/16 06/21/16 14:59 22:59 06:59 Intake Total 780 ml 2050 ml 700 ml Output Total 260 ml 255 ml 265 ml Balance 520 ml 1795 ml 435 ml PHYSICAL EXAMINATION GENERAL: Elderly gentleman, comfortable. VITAL SIGNS: see below. HEENT: Pupils equal, round, and reactive to light. CARDIAC: S1, S2, tachycardia. CHEST: Diminished air entry bilaterally. ABDOMEN: Mildly distended. No bowel sounds. EXTREMITIES: No cyanosis, clubbing or edema. NEUROLOGIC: No focal deficits. Results/Medications Result Diagram: 06/20/16205206/20/16 0400 Results 24 hrs Laboratory Tests Test 06/20/16 20:53 Hematocrit 31.0 #L Hemoglobin 10.1 #L Medications Current Medications Sodium Chloride (NS) 1,000 ml @ 100 mls/hr Q10H IV Last administered on 08:55; Admin Dose 100 MLS/HR; Start 06/18/16 at 11:15 Ondansetron HCl (Zofran Inj) 4 mg Q6H PRN IV NAUSEA AND/OR VOMITING; Start 06/18 at 11:30 Acetaminophen (Tylenol Liquid) 650 mg Q6H PRN PO PAIN LEVEL 1-3 OR FEVER; Start 06/18/16 at 11:30 Enoxaparin Sodium 30 mg 30 mg DAILY SC Last administered on 06/21/16 08:53; Admin Dose 30 MG; Start 06/19/16 at 09:00 Midazolam HCl 50 mg/Dextrose 50 ml @ 1 mls/hr TITRATE IV Last administered on 12:07; Admin Dose 10 MLS/HR; Start 06/18/16 at 18:00 Norepinephrine/ Dextrose (Levophed/D5W) 500 ml @ 1.87 mls/hr TITRATE IV Last administered on 06/18/16 23:17; Admin Dose 11.25 MLS/HR; Start 06/18/16 at 19:00 Famotidine 20 mg 20 mg DAILY IV Last administered on 06/21/16 08:55; Admin Dose 20 MG; Start 06/20/16 at 09:00 Cefepime HCl (Maxipime 1gm/50 ml (Pmx)) 50 ml @ 100 mls/hr Q12 IVPB Last administered on 06/21/16 08:48; Admin Dose 100 MLS/HR; Start 06/20/16 at 11:00 Morphine Sulfate (morphine) 2 mg Q2 PRN IV PAIN LEVEL 7-10 Last administered on 06/21/16 10:27; Admin Dose 2 MG; Start 06/20/16 at 17:00 Assessment/Plan Chief Complaint/Hosp Course IMPRESSION: 1. History of chronic obstructive pulmonary disease. 2. History of lung cancer. 3. Recurrent hypoxemic and hypercapnic respiratory failure. 4. Encephalopathy. 5. Anemia s/p PRBC, consider GI eval. PLAN: 1. Continue O2. 2. s/p prbc 3. Wound care. 4. Deep venous thrombosis and gastrointestinal prophylaxis. 5. Consider palliative care evaluation for recurrent hypoxemic, hypercapnic respiratory failure with underlying history of lung cancer. 6. GI recs, transfer to [facility] from pulm standpoint. Problems: CASSIE VACA MD, [facility] Jun 21, 2016 11:23
--- NOTE | 2016-06-21 11:41 | PN ---
DATE: 06/21/2016 INFECTIOUS DISEASE PROGRESS NOTE SUBJECTIVE: No acute changes. The patient is alert, feels good, looks comfortable. Denies pain, d iscomfort. No fevers. MICROBIOLOGY: Urine culture growing Klebsiella ESBL susceptible to cefepime. LABORATORY DATA: No labs this morning. ANTIMICROBIALS: The patient is on IV cefepime. PHYSICAL EXAMINATION: GENERAL: This is well-developed, fragile, elderly woman who is awake, in no distress. HEENT: Head atraumatic, normocephalic. Sclerae anicteric. Buccal mucosa dry. NECK: Supple, trachea midline. CHEST: Rise symmetrical. Breath sounds diminished to bases. HEART: S1, S2. ABDOMEN: Soft, bowel sounds present. EXTREMITIES: No cyanosis. ASSESSMENT: 1. Status post septic shock. 2. Recurrent urinary tract infection. 3. Chronic obstructive pulmonary disease exacerbation, status post respiratory failure. 4. History of lung cancer. 5. Multiple decubitus. 6. History of Clostridium difficile and methicillin-resistant Staphylococcus aureus nares colonizat ion. PLAN: The patient remains stable, improving on current antibiotics. Continue present care. Follow recommendations of specialists. Dictated By: RUBIN MAYEN INTEGRATION ARCHITECT for [employer]LL[employer]/SANDER Conf#: [id number] DID#: [id number]
--- NOTE | 2016-06-21 11:48 | PN ---
Date/Time of Note Date/Time of Note DATE: 06/21/16 TIME: 11:47 Assessment/Plan VTE Prophylaxis VTE Prophylaxis Intervention: LMWH Lines/Catheters IV Catheter Type (from Nrs): PICC Line Central line still needed: Yes Urinary Cath still in place: Yes Reason Cath still needed: skin wounds contaminated by urine Assessment/Plan Chief Complaint/Hosp Course 1) respiratory failure - resolved 2) pneumonia with sepsis - IV antibiotics 3) hypotensioin - resolved 4) COPD - monitor, breathing treatment as needed 5) lung cancer - monitor Patient to go to telemetry today when bed available Problems: Subjective 24 Hr Interval Summary Free Text/Dictation Patient complains of pain Exam/Review of Systems Vital Signs Vitals Vital Signs Date Time Temp Pulse Resp B/P Pulse Ox O2 Delivery O2 Flow Rate FiO2 06/21/16 11:00 85 19 119/82 75 Nasal Cannula 06/21/16 06:00 98.7 06/20/16 23:59 3.0 06/19/16 12:20 30 Intake and Output 06/20/16 06/20/16 06/21/16 15:00 23:00 07:00 Intake Total 1030 ml 1800 ml 600 ml Output Total 260 ml 260 ml 230 ml Balance 770 ml 1540 ml 370 ml Exam Constitutional: well developed Head: atraumatic, normocephalic Neck: supple Respiratory: diminished breath sounds Cardiovascular: regular rate and rhythm Gastrointestinal: non-tender, soft Results Result Diagram: 06/20/16205206/20/16 0400 Results 24 hrs Laboratory Tests Test 06/20/16 20:53 Hematocrit 31.0 #L Hemoglobin 10.1 #L Medications Medications Current Medications Sodium Chloride (NS) 1,000 ml @ 100 mls/hr Q10H IV Last administered on 08:55; Admin Dose 100 MLS/HR; Start 06/18/16 at 11:15 Ondansetron HCl (Zofran Inj) 4 mg Q6H PRN IV NAUSEA AND/OR VOMITING; Start 06/18 at 11:30 Acetaminophen (Tylenol Liquid) 650 mg Q6H PRN PO PAIN LEVEL 1-3 OR FEVER; Start 06/18/16 at 11:30 Enoxaparin Sodium 30 mg 30 mg DAILY SC Last administered on 06/21/16 08:53; Admin Dose 30 MG; Start 06/19/16 at 09:00 Midazolam HCl 50 mg/Dextrose 50 ml @ 1 mls/hr TITRATE IV Last administered on 12:07; Admin Dose 10 MLS/HR; Start 06/18/16 at 18:00 Norepinephrine/ Dextrose (Levophed/D5W) 500 ml @ 1.87 mls/hr TITRATE IV Last administered on 06/18/16 23:17; Admin Dose 11.25 MLS/HR; Start 06/18/16 at 19:00 Famotidine 20 mg 20 mg DAILY IV Last administered on 06/21/16 08:55; Admin Dose 20 MG; Start 06/20/16 at 09:00 Cefepime HCl (Maxipime 1gm/50 ml (Pmx)) 50 ml @ 100 mls/hr Q12 IVPB Last administered on 06/21/16 08:48; Admin Dose 100 MLS/HR; Start 06/20/16 at 11:00 Morphine Sulfate (morphine) 2 mg Q2 PRN IV PAIN LEVEL 7-10 Last administered on 06/21/16 10:27; Admin Dose 2 MG; Start 06/20/16 at 17:00 MICHAEL HOROWITZ Jun 21, 2016 11:48
[2016-06-21] MEDS ORDERED: POTASSIUM CHLORIDE (SR) 20 MEQ TAB PO STA (13:04)
--- NOTE | 2016-06-21 13:09 | CONS ---
Date/Time of Note Date/Time of Note DATE: 06/21/16 TIME: 13:07 Assessment/Plan Assessment/Plan Additional Assessment/Plan Respiratory failure status post extubation Acute decompensated diastolic congestive heart failure Likely pneumonia COPD exacerbation Tricuspid valve regurgitation Pulmonary hypertension Lung malignancy Hypokalemia -Blood pressure trend remained stable, would start low dose diuretics as blood pressure and renal function permits. Potassium and magnesium supplementation has been ordered. Consultation Date/Type/Reason Admit Date/Time Jun 18, 2016 at 11:17 Initial Consult Date Type of Consultation: cv 24 HR Interval Summary Free Text/Dictation Patient denies chest pain, shortness of breath, still with mild cough nonproductive Exam/Review of Systems Vital Signs Vitals Vital Signs Date Time Temp Pulse Resp B/P Pulse Ox O2 Delivery O2 Flow Rate FiO2 06/21/16 12:00 83 06/21/16 12:00 24 110/82 Nasal Cannula 06/21/16 11:00 75 06/21/16 06:00 98.7 06/20/16 23:59 3.0 06/19/16 12:20 30 Intake and Output 06/20/16 06/20/16 06/21/16 15:00 23:00 07:00 Intake Total 1030 ml 1800 ml 600 ml Output Total 260 ml 260 ml 230 ml Balance 770 ml 1540 ml 370 ml Exam Constitutional: alert, frail, oriented Head: normocephalic Neck: supple Respiratory: other Cardiovascular: other (S1-S2 heard), regular rate and rhythm Gastrointestinal: bowel sounds, non-tender, other (no guarding), soft Extremities: edema (trace) Results Result Diagram: 06/20/16205206/20/16 040 Results 24 hrs Laboratory Tests Test 06/20/16 20:53 Hematocrit 31.0 #L Hemoglobin 10.1 #L Medications Medications Current Medications Sodium Chloride (NS) 1,000 ml @ 100 mls/hr Q10H IV Last administered on t 08:55; Admin Dose 100 MLS/HR; Start 06/18/16 at 11:15 Ondansetron HCl (Zofran Inj) 4 mg Q6H PRN IV NAUSEA AND/OR VOMITING; Start 06/18 at 11:30 Acetaminophen (Tylenol Liquid) 650 mg Q6H PRN PO PAIN LEVEL 1-3 OR FEVER; Start 06/18/16 at 11:30 Enoxaparin Sodium 30 mg 30 mg DAILY SC Last administered on 06/21/16 08:53; Admin Dose 30 MG; Start 06/19/16 at 09:00 Midazolam HCl 50 mg/Dextrose 50 ml @ 1 mls/hr TITRATE IV Last administered on 12:07; Admin Dose 10 MLS/HR; Start 06/18/16 at 18:00 Norepinephrine/ Dextrose (Levophed/D5W) 500 ml @ 1.87 mls/hr TITRATE IV Last administered on 06/18/16 23:17; Admin Dose 11.25 MLS/HR; Start 06/18/16 at 19:00 Famotidine 20 mg 20 mg DAILY IV Last administered on 06/21/16 08:55; Admin Dose 20 MG; Start 06/20/16 at 09:00 Cefepime HCl (Maxipime 1gm/50 ml (Pmx)) 50 ml @ 100 mls/hr Q12 IVPB Last administered on 06/21/16 08:48; Admin Dose 100 MLS/HR; Start 06/20/16 at 11:00 Morphine Sulfate (morphine) 2 mg Q2 PRN IV PAIN LEVEL 7-10 Last administered on 06/21/16 12:27; Admin Dose 2 MG; Start 06/20/16 at 17:00 Artemio Tipton DO Jun 21, 2016 13:09
[2016-06-21] MEDS ORDERED: MAGNESIUM SULFATE 4 GM/100 ML 100 ML IVPB ONE (13:30)
[2016-06-21] MEDS: POTASSIUM CHLORIDE 50 ML IVPB SCH ×2 (14:46→16:18)
[2016-06-21] MEDS: FUROSEMIDE 20 MG INJ IV SCH (15:27)
[2016-06-21] MEDS ORDERED: POTASSIUM CHLORIDE (SR) 20 MEQ TAB PO ONE (20:00)
[2016-06-22] VITALS (13 sets, daily range): BP systolic 112–128; BP diastolic 70–89; PULSE 83–115; RESP 17–20
[2016-06-22] MEDS: morphine 2 MG INJ IV PRN ×6 (00:23→12:20)
[2016-06-22] MEDS: SOD CHLORIDE 0.9% 1,000 ML IV SCH ×3 (01:27→15:38)
[2016-06-22] MEDS: CEFEPIME 1GM/50 ML (PMX) 50 ML IVPB SCH ×2 (09:27→20:44)
[2016-06-22] MEDS: FAMOTIDINE 20 MG INJ IV SCH (09:28)
[2016-06-22] MEDS: FUROSEMIDE 20 MG INJ IV SCH ×2 (09:28→17:32)
[2016-06-22] MEDS: ENOXAPARIN 30 MG/0.3 ML SYG SC SCH (09:39)
--- NOTE | 2016-06-22 12:31 | CONS ---
Date/Time of Note Date/Time of Note DATE: 06/22/16 TIME: 12:30 Consult Date/Type/Reason Admit Date/Time Jun 18, 2016 at 11:17 Initial Consult Date Type of Consultation: ID Subjective alert, feels good, no fevers, nad Objective Vital Signs Date Time Temp Pulse Resp B/P Pulse Ox O2 Delivery O2 Flow Rate FiO2 06/22/16 12:27 97 06/22/16 11:26 98.5 20 112/70 96 06/22/16 03:33 3.0 06/21/16 22:30 Nasal Cannula 06/19/16 12:20 30 Intake and Output 06/21/16 06/21/16 06/22/16 15:00 23:00 07:00 Intake Total 240 ml 1650 ml Output Total 1200 ml 2300 ml Balance -960 ml -650 ml Results/Medications Result Diagram: 06/20/16205206/20/16 0400 Medications Current Medications Sodium Chloride (NS) 1,000 ml @ 100 mls/hr Q10H IV Last administered on 01:27; Admin Dose 100 MLS/HR; Start 06/18/16 at 11:15 Ondansetron HCl (Zofran Inj) 4 mg Q6H PRN IV NAUSEA AND/OR VOMITING; Start 06/18 at 11:30 Acetaminophen (Tylenol Liquid) 650 mg Q6H PRN PO PAIN LEVEL 1-3 OR FEVER; Start 06/18/16 at 11:30 Enoxaparin Sodium 30 mg 30 mg DAILY SC Last administered on 06/22/16 09:39; Admin Dose 30 MG; Start 06/19/16 at 09:00 Midazolam HCl 50 mg/Dextrose 50 ml @ 1 mls/hr TITRATE IV Last administered on 12:07; Admin Dose 10 MLS/HR; Start 06/18/16 at 18:00 Norepinephrine/ Dextrose (Levophed/D5W) 500 ml @ 1.87 mls/hr TITRATE IV Last administered on 06/18/16 23:17; Admin Dose 11.25 MLS/HR; Start 06/18/16 at 19:00 Famotidine 20 mg 20 mg DAILY IV Last administered on 06/22/16 09:28; Admin Dose 20 MG; Start 06/20/16 at 09:00 Cefepime HCl (Maxipime 1gm/50 ml (Pmx)) 50 ml @ 100 mls/hr Q12 IVPB Last administered on 06/22/16 09:27; Admin Dose 100 MLS/HR; Start 06/20/16 at 11:00 Morphine Sulfate (morphine) 2 mg Q2 PRN IV PAIN LEVEL 7-10 Last administered on 06/22/16 12:20; Admin Dose 2 MG; Start 06/20/16 at 17:00 Furosemide (Lasix) 20 mg DAILY IV Last administered on 06/22/16 09:28; Admin Dose 20 MG; Start 06/21/16 at 13:30 Assessment/Plan Chief Complaint/Hosp Course MICROBIOLOGY: Urine culture growing Klebsiella ESBL susceptible to cefepime. ANTIMICROBIALS: The patient is on IV cefepime. PHYSICAL EXAMINATION: GENERAL: This is well-developed, fragile, elderly woman who is awake, in no distress. HEENT: Head atraumatic, normocephalic. Sclerae anicteric. Buccal mucosa dry. NECK: Supple, trachea midline. CHEST: Rise symmetrical. Breath sounds diminished to bases. HEART: S1, S2. ABDOMEN: Soft, bowel sounds present. EXTREMITIES: No cyanosis. ASSESSMENT: 1. Status post septic shock. 2. Recurrent urinary tract infection. 3. Chronic obstructive pulmonary disease exacerbation, status post respiratory failure. 4. History of lung cancer. 5. Multiple decubitus. 6. 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 PLAN: The patient remains stable, improving on current antibiotics. Continue present care. Follow recommendations of specialists. [facility] staff Problems: RUBIN MAYEN NP Jun 22, 2016 12:31
--- NOTE | 2016-06-22 12:31 | PN ---
Date/Time of Note Date/Time of Note DATE: 06/22/16 TIME: 12:30 Assessment/Plan VTE Prophylaxis VTE Prophylaxis Intervention: LMWH Lines/Catheters IV Catheter Type (from Nrs): PICC Line Central line still needed: Yes Urinary Cath still in place: Yes Reason Cath still needed: skin wounds contaminated by urine Assessment/Plan Chief Complaint/Hosp Course 1) respiratory failure - resolved 2) pneumonia with sepsis - IV antibiotics 3) hypotensioin - resolved 4) COPD - monitor, breathing treatment as needed 5) lung cancer - monitor Patient to go to telemetry today when bed available Problems: Subjective 24 Hr Interval Summary Free Text/Dictation Patient complains of pain, wants more pain medication Exam/Review of Systems Vital Signs Vitals Vital Signs Date Time Temp Pulse Resp B/P Pulse Ox O2 Delivery O2 Flow Rate FiO2 06/22/16 12:27 97 06/22/16 11:26 98.5 20 112/70 96 06/22/16 03:33 3.0 06/21/16 22:30 Nasal Cannula 06/19/16 12:20 30 Intake and Output 06/21/16 06/21/16 06/22/16 15:00 23:00 07:00 Intake Total 240 ml 1650 ml Output Total 1200 ml 2300 ml Balance -960 ml -650 ml Exam Constitutional: frail, well developed Head: atraumatic, normocephalic Neck: supple Respiratory: diminished breath sounds Cardiovascular: regular rate and rhythm Gastrointestinal: non-tender, soft Extremities: normal pulses Results Result Diagram: 06/20/16205206/20/16 0400 Medications Medications Current Medications Sodium Chloride (NS) 1,000 ml @ 100 mls/hr Q10H IV Last administered on 01:27; Admin Dose 100 MLS/HR; Start 06/18/16 at 11:15 Ondansetron HCl (Zofran Inj) 4 mg Q6H PRN IV NAUSEA AND/OR VOMITING; Start 06/18 at 11:30 Acetaminophen (Tylenol Liquid) 650 mg Q6H PRN PO PAIN LEVEL 1-3 OR FEVER; Start 06/18/16 at 11:30 Enoxaparin Sodium 30 mg 30 mg DAILY SC Last administered on 06/22/16 09:39; Admin Dose 30 MG; Start 06/19/16 at 09:00 Midazolam HCl 50 mg/Dextrose 50 ml @ 1 mls/hr TITRATE IV Last administered on 12:07; Admin Dose 10 MLS/HR; Start 06/18/16 at 18:00 Norepinephrine/ Dextrose (Levophed/D5W) 500 ml @ 1.87 mls/hr TITRATE IV Last administered on 06/18/16 23:17; Admin Dose 11.25 MLS/HR; Start 06/18/16 at 19:00 Famotidine 20 mg 20 mg DAILY IV Last administered on 06/22/16 09:28; Admin Dose 20 MG; Start 06/20/16 at 09:00 Cefepime HCl (Maxipime 1gm/50 ml (Pmx)) 50 ml @ 100 mls/hr Q12 IVPB Last administered on 06/22/16 09:27; Admin Dose 100 MLS/HR; Start 06/20/16 at 11:00 Morphine Sulfate (morphine) 2 mg Q2 PRN IV PAIN LEVEL 7-10 Last administered on 06/22/16 12:20; Admin Dose 2 MG; Start 06/20/16 at 17:00 Furosemide (Lasix) 20 mg DAILY IV Last administered on 06/22/16 09:28; Admin Dose 20 MG; Start 06/21/16 at 13:30 MICHAEL HOROWITZ Jun 22, 2016 12:31
[2016-06-22] MEDS: morphine 4 MG/ML VIAL IV PRN ×5 (14:33→23:18)
--- NOTE | 2016-06-22 14:34 | CONS ---
Date/Time of Note Date/Time of Note DATE: 06/22/16 TIME: 14:21 Assessment/Plan Assessment/Plan Additional Assessment/Plan Respiratory failure status post extubation Acute decompensated diastolic congestive heart failure Likely pneumonia COPD exacerbation Tricuspid valve regurgitation Pulmonary hypertension Lung malignancy -Patient with improvement in shortness of breath still needs diuresis, would increase Lasix to twice a day and blood pressure and renal function permits. Would check electrolytes given history of hypokalemia Consultation Date/Type/Reason Admit Date/Time Jun 18, 2016 at 11:17 Type of Consultation: cv 24 HR Interval Summary Free Text/Dictation denies sob, cough, cp Exam/Review of Systems Vital Signs Vitals Vital Signs Date Time Temp Pulse Resp B/P Pulse Ox O2 Delivery O2 Flow Rate FiO2 06/22/16 12:27 97 06/22/16 11:26 98.5 20 112/70 96 06/22/16 03:33 3.0 06/21/16 22:30 Nasal Cannula 06/19/16 12:20 30 Intake and Output 06/21/16 06/21/16 06/22/16 15:00 23:00 07:00 Intake Total 240 ml 1650 ml Output Total 1200 ml 2300 ml Balance -960 ml -650 ml Exam Constitutional: alert, frail, oriented Head: normocephalic Neck: supple Respiratory: other (course bs, no wheeze) Cardiovascular: other (s1s2), regular rate and rhythm Gastrointestinal: bowel sounds, non-tender, soft Extremities: edema Results Result Diagram: 06/20/16205206/20/16 0400 Medications Medications Current Medications Sodium Chloride (NS) 1,000 ml @ 100 mls/hr Q10H IV Last administered on 01:27; Admin Dose 100 MLS/HR; Start 06/18/16 at 11:15 Ondansetron HCl (Zofran Inj) 4 mg Q6H PRN IV NAUSEA AND/OR VOMITING; Start 06/18 at 11:30 Acetaminophen (Tylenol Liquid) 650 mg Q6H PRN PO PAIN LEVEL 1-3 OR FEVER; Start 06/18/16 at 11:30 Enoxaparin Sodium 30 mg 30 mg DAILY SC Last administered on 06/22/16 09:39; Admin Dose 30 MG; Start 06/19/16 at 09:00 Midazolam HCl/ Dextrose (Versed/D5W) 50 ml @ 1 mls/hr TITRATE IV Last administered on 06/19/16 12:07; Admin Dose 10 MLS/HR; Start 06/18/16 at 18:00 Famotidine 20 mg 20 mg DAILY IV Last administered on 06/22/16 09:28; Admin Dose 20 MG; Start 06/20/16 at 09:00 Cefepime HCl (Maxipime 1gm/50 ml (Pmx)) 50 ml @ 100 mls/hr Q12 IVPB Last administered on 06/22/16 09:27; Admin Dose 100 MLS/HR; Start 06/20/16 at 11:00 Furosemide (Lasix) 20 mg DAILY IV Last administered on 06/22/16 09:28; Admin Dose 20 MG; Start 06/21/16 at 13:30 Morphine Sulfate (morphine) 3 mg Q2H PRN IV PAIN LEVEL 7-10; Start 06/22/16 at 13:00 Artemio Tipton DO Jun 22, 2016 14:31
[2016-06-22 15:56] LABS: POTASSIUM 4.3 mmol/L (3.5-5.1)
[2016-06-22 15:58] LABS: CREATININE 0.48 mg/dl (0.44-1.00)
[2016-06-22 15:59] LABS: CALCIUM 8.5 mg/dl (8.4-10.2)
[2016-06-22 16:00] LABS: MAGNESIUM 1.4 mg/dl (1.7-2.5)
[2016-06-23] VITALS (13 sets, daily range): BP systolic 107–134; BP diastolic 57–92; PULSE 91–110; RESP 18–20
[2016-06-23] MEDS: SOD CHLORIDE 0.9% 1,000 ML IV SCH ×3 (01:15→22:55)
[2016-06-23] MEDS: morphine 4 MG/ML VIAL IV PRN ×10 (01:22→22:55)
[2016-06-23] MEDS: ALTEPLASE (CATHFLO) 2 MG INJ CATHETER PRN ×2 (03:40→03:48)
[2016-06-23] MEDS: FUROSEMIDE 20 MG INJ IV SCH ×2 (05:50→17:25)
[2016-06-23 06:13] LABS: POTASSIUM 3.8 mmol/L (3.5-5.1)
[2016-06-23 06:15] LABS: CREATININE 0.41 mg/dl (0.44-1.00)
[2016-06-23 06:16] LABS: CALCIUM 7.8 mg/dl (8.4-10.2); HEMATOCRIT 29.5 % (37.0-47.0); HEMOGLOBIN 9.6 g/dl (12.0-16.0); MEAN CORPUSCULAR HEMOGLOBIN 26.5 pg (29.0-33.0); MEAN CORPUSCULAR HGB CONC 32.6 g/dl (32.0-37.0); MEAN CORPUSCULAR VOLUME 81.2 fl (82.0-101.0); MEAN PLATELET VOLUME 6.4 fl (7.4-10.4); PLATELET COUNT 481 10^3/UL (140-440); RED BLOOD COUNT 3.64 10^6/ul (4.20-5.40); RED CELL DISTRIBUTION WIDTH 20.9 % (11.5-14.5)
[2016-06-23 06:49] LABS: CONDITION 1; LH ANALYZER COMMENTS 1; SUSPECT 1
[2016-06-23] MEDS ORDERED: INFLUENZA VIRUS VACCINE 0.5 ML (DISPENSING) IM* ONE (09:00)
[2016-06-23] MEDS: FAMOTIDINE 20 MG INJ IV SCH (09:01)
[2016-06-23] MEDS: CEFEPIME 1GM/50 ML (PMX) 50 ML IVPB SCH ×2 (09:01→20:09)
[2016-06-23] MEDS: ENOXAPARIN 30 MG/0.3 ML SYG SC SCH (09:09)
[2016-06-23 09:37] LABS: LYMPHOCYTES # 2.2 10^3/ul (0.8-2.9); MONOCYTE # 0.7 10^3/ul (0.3-0.9); MYELOCYTES # 0.1; NEUTROPHIL # 4.6 10^3/ul (1.6-7.5)
--- NOTE | 2016-06-23 11:35 | CONS ---
Date/Time of Note Date/Time of Note DATE: 06/23/16 TIME: 11:33 Consult Date/Type/Reason Admit Date/Time Jun 18, 2016 at 11:17 Type of Consultation: pulmonary Subjective Patient stable no new events Objective Vital Signs Date Time Temp Pulse Resp B/P Pulse Ox O2 Delivery O2 Flow Rate FiO2 06/23/16 11:20 100.6 101 20 107/57 97 06/23/16 05:00 2.0 06/22/16 20:05 Nasal Cannula 06/19/16 12:20 30 Intake and Output 06/22/16 06/22/16 06/23/16 14:59 22:59 06:59 Intake Total 500 ml 50 ml Output Total 275 ml Balance 225 ml 50 ml PHYSICAL EXAMINATION GENERAL: Elderly lady comfortable at rest no acute distress VITAL SIGNS: see below. HEENT: Pupils equal, round, and reactive to light. CARDIAC: S1, S2, 2 systolic ejection murmur CHEST: Diminished air entry bilaterally. ABDOMEN: Mildly distended. Bowel sounds present no guarding or rebound EXTREMITIES: No cyanosis, clubbing or edema. NEUROLOGIC: No focal deficits. Results/Medications Result Diagram: 06/23/16 0520 06/23/16 0520 Results 24 hrs Laboratory Tests Test 06/22/16 15:25 06/23/16 05:20 Anion Gap 13 12 Blood Urea Nitrogen 7 9 Calcium Level 8.5 7.8 L Carbon Dioxide Level 32 H 31 Chloride Level 96 L 96 L Creatinine 0.48 0.41 L Glucose Level 104 91 Magnesium Level 1.4 L Potassium Level 4.3 3.8 Sodium Level 137 135 Band Neutrophils % 5.0 Basophils # Basophils % Blood Morphology Comment Differential Comment MANUAL DIFF Eosinophils # Eosinophils % Hematocrit 29.5 L Hemoglobin 9.6 L Lymphocytes # 2.2 Lymphocytes % 28.0 Mean Corpuscular Hemoglobin 26.5 L Mean Corpuscular Hemoglobin Concent 32.6 Mean Corpuscular Volume 81.2 L Mean Platelet Volume 6.4 L Monocytes # 0.7 Monocytes % 9.0 Myelocytes # 0.1 Myelocytes % 1.0 H Neutrophils # 4.6 Neutrophils % 57.0 Nucleated Red Blood Cells # Nucleated Red Blood Cells % Platelet Count 481 H Red Blood Count 3.64 #L Red Cell Distribution Width 20.9 H White Blood Count 8.0 # Medications Current Medications Sodium Chloride (NS) 1,000 ml @ 100 mls/hr Q10H IV Last administered on 07:40; Admin Dose 100 MLS/HR; Start 06/18/16 at 11:15 Ondansetron HCl (Zofran Inj) 4 mg Q6H PRN IV NAUSEA AND/OR VOMITING; Start 06/18 at 11:30 Acetaminophen (Tylenol Liquid) 650 mg Q6H PRN PO PAIN LEVEL 1-3 OR FEVER Last administered on 06/22/16 16:06; Admin Dose 650 MG; Start 06/18/16 at 11:30 Enoxaparin Sodium 30 mg 30 mg DAILY SC Last administered on 06/23/16 09:09; Admin Dose 30 MG; Start 06/19/16 at 09:00 Midazolam HCl/ Dextrose (Versed/D5W) 50 ml @ 1 mls/hr TITRATE IV Last administered on 06/19/16 12:07; Admin Dose 10 MLS/HR; Start 06/18/16 at 18:00 Famotidine 20 mg 20 mg DAILY IV Last administered on 06/23/16 09:01; Admin Dose 20 MG; Start 06/20/16 at 09:00 Cefepime HCl (Maxipime 1gm/50 ml (Pmx)) 50 ml @ 100 mls/hr Q12 IVPB Last administered on 06/23/16 09:01; Admin Dose 100 MLS/HR; Start 06/20/16 at 11:00 Morphine Sulfate (morphine) 3 mg Q2H PRN IV PAIN LEVEL 7-10 Last administered on 06/23/16 11:31; Admin Dose 3 MG; Start 06/22/16 at 13:00 Assessment/Plan Chief Complaint/Hosp Course IMPRESSION: 1. History of chronic obstructive pulmonary disease. 2. History of lung cancer. 3. Recurrent hypoxemic and hypercapnic respiratory failure. Now extubated 4. Encephalopathy, underlying dementia 5. Anemia status post PRBCs 6. Multiple decubitus ulcers PLAN: 1. Continue O2. 2. s/p prbc monitor H&H 3. Wound care. 4. Deep venous thrombosis and gastrointestinal prophylaxis. 5. Consider palliative care evaluation for recurrent hypoxemic, hypercapnic respiratory failure with underlying history of lung cancer. 6. Discharge planning okay from pulmonary standpoint Problems: CASSIE VACA MD, [facility] Jun 23, 2016 11:35
--- NOTE | 2016-06-23 12:04 | CONS ---
Date/Time of Note Date/Time of Note DATE: 06/23/16 TIME: 12:02 Assessment/Plan Assessment/Plan Additional Assessment/Plan Respiratory failure status post extubation Acute decompensated diastolic congestive heart failure Likely pneumonia COPD exacerbation Tricuspid valve regurgitation Pulmonary hypertension Lung malignancy -Would continue diuretics as blood pressure and renal function permits, supplement magnesium and potassium. Antibiotics as per our infectious disease colleagues. Consultation Date/Type/Reason Admit Date/Time Jun 18, 2016 at 11:17 Type of Consultation: cv 24 HR Interval Summary Free Text/Dictation Shortness of breath is improving, still with cough, denies chest pain or palpitations Exam/Review of Systems Vital Signs Vitals Vital Signs Date Time Temp Pulse Resp B/P Pulse Ox O2 Delivery O2 Flow Rate FiO2 06/23/16 12:00 103 06/23/16 11:20 100.6 20 107/57 97 06/23/16 05:00 2.0 06/22/16 20:05 Nasal Cannula 06/19/16 12:20 30 Intake and Output 06/22/16 06/22/16 06/23/16 14:59 22:59 06:59 Intake Total 500 ml 50 ml Output Total 275 ml Balance 225 ml 50 ml Exam Constitutional: alert, frail, oriented Head: normocephalic Neck: supple Respiratory: other (course breath sounds bilaterally, no wheezing) Cardiovascular: other (S1 and S2 heard), regular rate and rhythm Gastrointestinal: bowel sounds, non-tender, soft Extremities: edema (trace) Results Result Diagram: 06/23/16 0520 06/23/16 0520 Results 24 hrs Laboratory Tests Test 06/22/16 15:25 06/23/16 05:20 Anion Gap 13 12 Blood Urea Nitrogen 7 9 Calcium Level 8.5 7.8 L Carbon Dioxide Level 32 H 31 Chloride Level 96 L 96 L Creatinine 0.48 0.41 L Glucose Level 104 91 Magnesium Level 1.4 L Potassium Level 4.3 3.8 Sodium Level 137 135 Band Neutrophils % 5.0 Basophils # Basophils % Blood Morphology Comment Differential Comment MANUAL DIFF Eosinophils # Eosinophils % Hematocrit 29.5 L Hemoglobin 9.6 L Lymphocytes # 2.2 Lymphocytes % 28.0 Mean Corpuscular Hemoglobin 26.5 L Mean Corpuscular Hemoglobin Concent 32.6 Mean Corpuscular Volume 81.2 L Mean Platelet Volume 6.4 L Monocytes # 0.7 Monocytes % 9.0 Myelocytes # 0.1 Myelocytes % 1.0 H Neutrophils # 4.6 Neutrophils % 57.0 Nucleated Red Blood Cells # Nucleated Red Blood Cells % Platelet Count 481 H Red Blood Count 3.64 #L Red Cell Distribution Width 20.9 H White Blood Count 8.0 # Medications Medications Current Medications Sodium Chloride (NS) 1,000 ml @ 100 mls/hr Q10H IV Last administered on 07:40; Admin Dose 100 MLS/HR; Start 06/18/16 at 11:15 Ondansetron HCl (Zofran Inj) 4 mg Q6H PRN IV NAUSEA AND/OR VOMITING; Start 06/18 at 11:30 Acetaminophen (Tylenol Liquid) 650 mg Q6H PRN PO PAIN LEVEL 1-3 OR FEVER Last administered on 06/22/16 16:06; Admin Dose 650 MG; Start 06/18/16 at 11:30 Enoxaparin Sodium 30 mg 30 mg DAILY SC Last administered on 06/23/16 09:09; Admin Dose 30 MG; Start 06/19/16 at 09:00 Midazolam HCl/ Dextrose (Versed/D5W) 50 ml @ 1 mls/hr TITRATE IV Last administered on 06/19/16 12:07; Admin Dose 10 MLS/HR; Start 06/18/16 at 18:00 Famotidine 20 mg 20 mg DAILY IV Last administered on 06/23/16 09:01; Admin Dose 20 MG; Start 06/20/16 at 09:00 Cefepime HCl (Maxipime 1gm/50 ml (Pmx)) 50 ml @ 100 mls/hr Q12 IVPB Last administered on 06/23/16 09:01; Admin Dose 100 MLS/HR; Start 06/20/16 at 11:00 Morphine Sulfate (morphine) 3 mg Q2H PRN IV PAIN LEVEL 7-10 Last administered on 06/23/16 11:31; Admin Dose 3 MG; Start 06/22/16 at 13:00 Artemio Tipton DO Jun 23, 2016 12:04
[2016-06-23] MEDS ORDERED: POTASSIUM CHLORIDE (SR) 20 MEQ TAB PO STA (12:07)
[2016-06-23] MEDS ORDERED: MAGNESIUM SULFATE 4 GM/100 ML 100 ML IVPB ONE (13:30)
--- NOTE | 2016-06-23 13:43 | CONS ---
Date/Time of Note Date/Time of Note DATE: 06/23/16 TIME: 13:42 Consult Date/Type/Reason Admit Date/Time Jun 18, 2016 at 11:17 Type of Consultation: ID Subjective no acute changes, looks comfortable, no fevers Objective Vital Signs Date Time Temp Pulse Resp B/P Pulse Ox O2 Delivery O2 Flow Rate FiO2 06/23/16 12:29 103 06/23/16 11:20 100.6 20 107/57 97 06/23/16 05:00 2.0 06/22/16 20:05 Nasal Cannula 06/19/16 12:20 30 Intake and Output 06/22/16 06/22/16 06/23/16 15:00 23:00 07:00 Intake Total 500 ml 50 ml Output Total 275 ml Balance 225 ml 50 ml Results/Medications Result Diagram: 06/23/1620 06/23/16 0520 Results 24 hrs Laboratory Tests Test 06/22/16 15:25 06/23/16 05:20 Anion Gap 13 12 Blood Urea Nitrogen 7 9 Calcium Level 8.5 7.8 L Carbon Dioxide Level 32 H 31 Chloride Level 96 L 96 L Creatinine 0.48 0.41 L Glucose Level 104 91 Magnesium Level 1.4 L Potassium Level 4.3 3.8 Sodium Level 137 135 Band Neutrophils % 5.0 Basophils # Basophils % Blood Morphology Comment Differential Comment MANUAL DIFF Eosinophils # Eosinophils % Hematocrit 29.5 L Hemoglobin 9.6 L Lymphocytes # 2.2 Lymphocytes % 28.0 Mean Corpuscular Hemoglobin 26.5 L Mean Corpuscular Hemoglobin Concent 32.6 Mean Corpuscular Volume 81.2 L Mean Platelet Volume 6.4 L Monocytes # 0.7 Monocytes % 9.0 Myelocytes # 0.1 Myelocytes % 1.0 H Neutrophils # 4.6 Neutrophils % 57.0 Nucleated Red Blood Cells # Nucleated Red Blood Cells % Platelet Count 481 H Red Blood Count 3.64 #L Red Cell Distribution Width 20.9 H White Blood Count 8.0 # Medications Current Medications Sodium Chloride (NS) 1,000 ml @ 100 mls/hr Q10H IV Last administered on t 07:40; Admin Dose 100 MLS/HR; Start 06/18/16 at 11:15 Ondansetron HCl (Zofran Inj) 4 mg Q6H PRN IV NAUSEA AND/OR VOMITING; Start 06/18 at 11:30 Acetaminophen (Tylenol Liquid) 650 mg Q6H PRN PO PAIN LEVEL 1-3 OR FEVER Last administered on 06/22/16 16:06; Admin Dose 650 MG; Start 06/18/16 at 11:30 Enoxaparin Sodium 30 mg 30 mg DAILY SC Last administered on 06/23/16 09:09; Admin Dose 30 MG; Start 06/19/16 at 09:00 Midazolam HCl/ Dextrose (Versed/D5W) 50 ml @ 1 mls/hr TITRATE IV Last administered on 06/19/16 12:07; Admin Dose 10 MLS/HR; Start 06/18/16 at 18:00 Famotidine 20 mg 20 mg DAILY IV Last administered on 06/23/16 09:01; Admin Dose 20 MG; Start 06/20/16 at 09:00 Cefepime HCl (Maxipime 1gm/50 ml (Pmx)) 50 ml @ 100 mls/hr Q12 IVPB Last administered on 06/23/16 09:01; Admin Dose 100 MLS/HR; Start 06/20/16 at 11:00 Morphine Sulfate 3 mg 3 mg Q2H PRN IV PAIN LEVEL 7-10 Last administered on 13:39; Admin Dose 3 MG; Start 06/22/16 at 13:00 Magnesium Sulfate (Magnesium Sulfate 4 Gm/100 ml) 100 ml @ 25 mls/hr ONCE ONCE IVPB Last administered on 06/23/16 13:38; Admin Dose 25 MLS/HR; Start 06/23 at 13:30; Stop 06/23/16 at 17:29 Assessment/Plan Chief Complaint/Hosp Course MICROBIOLOGY: Urine culture growing Klebsiella ESBL susceptible to cefepime. ANTIMICROBIALS: The patient is on IV cefepime. PHYSICAL EXAMINATION: GENERAL: This is well-developed, fragile, elderly woman who is awake, in no distress. HEENT: Head atraumatic, normocephalic. Sclerae anicteric. Buccal mucosa dry. NECK: Supple, trachea midline. CHEST: Rise symmetrical. Breath sounds diminished to bases. HEART: S1, S2. ABDOMEN: Soft, bowel sounds present. EXTREMITIES: No cyanosis. ASSESSMENT: 1. Status post septic shock. 2. Recurrent urinary tract infection. 3. Chronic obstructive pulmonary disease exacerbation, status post respiratory failure. 4. History of lung cancer. 5. Multiple decubitus. 6. 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 PLAN: The patient remains stable. Continue present care. Complete abx. Follow recommendations of specialists. [facility] staff Problems: RUBIN MAYEN NP Jun 23, 2016 13:43
--- NOTE | 2016-06-23 14:56 | DS ---
Date/Time of Note Date/Time of Note DATE: 06/23/16 TIME: 14:55 Discharge Summary Admission/Discharge Info Admit Date/Time Jun 18, 2016 at 11:17 Discharge Date/Time 06/23/16 Final Diagnosis 1) pneumonia 2) breast cancer Patient Condition: Fair Hx of Present Illness Patient with history of COPD, lung cancer, hypertension, recently in the hospital for shortness of breath returns to the emergency room with evidence of pneumonia and respiratory failure. Patient developed difficulty breathing in the emergency room and had to be intubated. Patient was also placed on vasopressors for hypotension. Patient was then admitted to the ICU for further treatment. Hospital Course Patient comes in with sepsis, pneumonia. She was treated with antibiotics. Patient was in respiratory failure but quickly improved. Patient slowly returned to baseline. Once stable, patient is then sent back to SNF. MICROBIOLOGY: Urine culture growing Klebsiella ESBL susceptible to cefepime. ANTIMICROBIALS: The patient is on IV cefepime. PHYSICAL EXAMINATION: GENERAL: This is well-developed, fragile, elderly woman who is awake, in no distress. HEENT: Head atraumatic, normocephalic. Sclerae anicteric. Buccal mucosa dry. NECK: Supple, trachea midline. CHEST: Rise symmetrical. Breath sounds diminished to bases. HEART: S1, S2. ABDOMEN: Soft, bowel sounds present. EXTREMITIES: No cyanosis. ASSESSMENT: 1. Status post septic shock. 2. Recurrent urinary tract infection. 3. Chronic obstructive pulmonary disease exacerbation, status post respiratory failure. 4. History of lung cancer. 5. Multiple decubitus. 6. 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 PLAN: The patient remains stable. Continue present care. Complete abx. Follow recommendations of specialists. staff Home Meds Active Scripts Pantoprazole* (Pantoprazole*) 40 Mg Tablet., 40 MG PO BID@06,18 for 30 Days Prov:JILL MYERS 01/04/16 Losartan Potassium* (Cozaar*) 50 Mg Tablet, 50 MG PO DAILY for 30 Days, TAB Prov:REGIDORJILL 01/04/16 Ferrous Sulfate* (Ferrous Sulfate*) 325 Mg Tabec, 325 MG PO BID for 30 Days, TAB Prov:REGIDOJILL Tejeda 01/04/16 Duloxetine Hcl* (Cymbalta*) 20 Mg Capsule., 20 MG PO DAILY for 30 Days Prov:JILL MYERS 01/04/16 Docusate Sodium* (Colace*) 100 Mg Capsule, 100 MG PO Q12H Y for CONSTIPATION, # 30 CAP Prov:JILL MYERS 01/04/16 Doxazosin Mesylate* (Cardura*) 2 Mg Tablet, 2 MG PO QPM for 30 Days, TAB Prov:JILL MYERS 01/04/16 Reported Medications Alprazolam* (Xanax*) 0.5 Mg Tab, 0.5 MG PO Q12 Y for ANXIETY, TAB 05/23/16 Levothyroxine Sodium* (Synthroid*) 125 Mcg Tablet, 125 MCG PO BEFORE BREAKFAST, #30 TAB 05/23/16 Clopidogrel Bisulfate (Clopidogrel) 75 Mg Tablet, 75 MG PO DAILY, #30 TAB 05/23/16 Metoprolol Tartrate* (Lopressor*) 50 Mg Tab, 50 MG PO BID, #60 TAB hold if SBP <110 or HR <60 05/23/16 Atorvastatin Calcium* (Atorvastatin Calcium*) 20 Mg Tablet, 20 MG PO QHS, #30 TAB 05/23/16 Lactobacillus Acidoph/Bulgaricus* (Floranex*) 1 Each Tablet, 1 TAB.CHEW PO TID, TAB.CHEW 05/23/16 Gabapentin* (Gabapentin*) 300 Mg Capsule, 300 MG PO TID, #90 CAP 05/23/16 Famotidine* (Famotidine*) 20 Mg Tablet, 20 MG PO DAILY, #30 TAB 05/23/16 Ipratropium-Albuterol (Ipratropium-Albuterol) 0.5-3 Mg/3 Ml Ampul.neb, 3 ML INHALATION Q8 Y for SHORTNESS OF BREATH, #30 VIAL 05/23/16 Ascorbic Acid* (Ascorbic Acid*) 500 Mg/5 Ml Syrup, 500 MG PO BID, #300 ML 05/23/16 Zolpidem Tartrate* (Ambien*) 5 Mg Tablet, 5 MG PO QHS Y for INSOMNIA, #30 TAB 05/23/16 Morphine Sulfate* (Ms Contin*) 60 Mg Tablet.sa, 60 MG PO TID, TAB.SA 01/31/16 Diazepam* (Diazepam*) 10 Mg Tablet, 10 MG PO DAILY, TAB 01/31/16 Gabapentin* (Gabapentin*) 300 Mg Capsule, 300 MG PO TID, #90 CAP 01/31/16 Pending Labs Laboratory Tests Test 06/22/16 15:25 06/23/16 05:20 Anion Gap 13 (8-16) 12 (8-16) Blood Urea Nitrogen 7mg/dl (7-20) 9mg/dl (7-20) Calcium Level 8.5mg/dl (8.4-10.2) 7.8mg/dl (8.4-10.2) Carbon Dioxide Level 32mmol/L (21-31) 31mmol/L (21-31) Chloride Level 96mmol/L (97-110) 96mmol/L (97-110) Creatinine 0.48mg/dl (0.44-1.00) 0.41mg/dl (0.44-1.00) Glucose Level 104mg/dl (70-220) 91mg/dl (70-220) Magnesium Level 1.4mg/dl (1.7-2.5) Potassium Level 4.3mmol/L (3.5-5.1) 3.8mmol/L (3.5-5.1) Sodium Level 137mmol/L (135-144) 135mmol/L (135-144) Band Neutrophils % 5.0% (0.0-5.0) Basophils # 10^3/ul (0.0-0.1) Basophils % % (0.0-2.0) Blood Morphology Comment Differential Comment MANUAL DIFF Eosinophils # 10^3/ul (0.0-0.5) Eosinophils % % (0.0-7.0) Hematocrit 29.5% (37.0-47.0) Hemoglobin 9.6g/dl (12.0-16.0) Lymphocytes # 2.210^3/ul (0.8-2.9) Lymphocytes % 28.0% (15.0-51.0) Mean Corpuscular Hemoglobin 26.5pg (29.0-33.0) Mean Corpuscular Hemoglobin Concent 32.6g/dl (32.0-37.0) Mean Corpuscular Volume 81.2fl (82.0-101.0) Mean Platelet Volume 6.4fl (7.4-10.4) Monocytes # 0.710^3/ul (0.3-0.9) Monocytes % 9.0% (0.0-11.0) Myelocytes # 0.1 Myelocytes % 1.0% (0.0-0.0) Neutrophils # 4.610^3/ul (1.6-7.5) Neutrophils % 57.0% (39.0-77.0) Nucleated Red Blood Cells # 10^3/ul (0.0-0.0) Nucleated Red Blood Cells % /100WBC (0.0-0.0) Platelet Count 24614^3/UL (140-440) Red Blood Count 3.6410^6/ul (4.20-5.40) Red Cell Distribution Width 20.9% (11.5-14.5) White Blood Count 8.010^3/ul (4.8-10.8) MICHAEL HOROWITZ Jun 23, 2016 14:56
[2016-06-24] VITALS (11 sets, daily range): BP systolic 103–151; BP diastolic 73–94; PULSE 90–103; RESP 18
[2016-06-24] MEDS: morphine 4 MG/ML VIAL IV PRN ×9 (01:21→20:00)
[2016-06-24] MEDS: FUROSEMIDE 20 MG INJ IV SCH ×2 (06:35→17:53)
--- NOTE | 2016-06-24 06:39 | PN ---
Date/Time of Note Date/Time of Note DATE: 06/24/16 TIME: 06:38 Assessment/Plan VTE Prophylaxis VTE Prophylaxis Intervention: SCD's Lines/Catheters IV Catheter Type (from Nrsg): PICC Line Central line still needed: No Urinary Cath still in place: Yes Reason Cath still needed: urinary retention Assessment/Plan Assessment/Plan Respiratory failure status post extubation Acute decompensated diastolic congestive heart failure Likely pneumonia COPD exacerbation Tricuspid valve regurgitation Pulmonary hypertension Lung malignancy -Would continue diuretics as blood pressure and renal function permits > consider changing to po lasix today or AM supplement magnesium and potassium. Antibiotics as per our infectious disease colleagues. Subjective 24 Hr Interval Summary Free Text/Dictation The patient wit no change Exam/Review of Systems Vital Signs Vitals Vital Signs Date Time Temp Pulse Resp B/P Pulse Ox O2 Delivery O2 Flow Rate FiO2 06/24/16 04:34 90 06/24/16 04:00 98.5 18 106/73 97 06/24/16 01:20 2.0 06/23/16 20:05 Nasal Cannula Intake and Output 06/23/16 06/23/16 06/24/16 15:00 23:00 07:00 Intake Total 450 ml 1050 ml 1200 ml Output Total 1750 ml 3700 ml Balance -1300 ml 1050 ml -2500 ml Results Result Diagram: 06/23/16 0520 06/23/16 0520 Medications Medications Current Medications Sodium Chloride (NS) 1,000 ml @ 100 mls/hr Q10H IV Last administered on 22:55; Admin Dose 100 MLS/HR; Start 06/18/16 at 11:15 Ondansetron HCl (Zofran Inj) 4 mg Q6H PRN IV NAUSEA AND/OR VOMITING; Start 06/18 at 11:30 Acetaminophen (Tylenol Liquid) 650 mg Q6H PRN PO PAIN LEVEL 1-3 OR FEVER Last administered on 06/22/16 16:06; Admin Dose 650 MG; Start 06/18/16 at 11:30 Enoxaparin Sodium 30 mg 30 mg DAILY SC Last administered on 06/23/16 09:09; Admin Dose 30 MG; Start 06/19/16 at 09:00 Midazolam HCl/ Dextrose (Versed/D5W) 50 ml @ 1 mls/hr TITRATE IV Last administered on 1/2/17at 12:07; Admin Dose 10 MLS/HR; Start 06/18/16 at 18:00 Famotidine 20 mg 20 mg DAILY IV Last administered on 06/23/16 09:01; Admin Dose 20 MG; Start 06/20/16 at 09:00 Cefepime HCl (Maxipime 1gm/50 ml (Pmx)) 50 ml @ 100 mls/hr Q12 IVPB Last administered on 06/23/16 20:09; Admin Dose 100 MLS/HR; Start 06/20/16 at 11:00 Morphine Sulfate (morphine) 3 mg Q2H PRN IV PAIN LEVEL 7-10 Last administered on 06/24/16 06:06; Admin Dose 3 MG; Start 06/22/16 at 13:00 RALPH LUCAS MD Jun 24, 2016 06:39
[2016-06-24] MEDS: SOD CHLORIDE 0.9% 1,000 ML IV SCH ×3 (07:15→17:09)
[2016-06-24] MEDS: FAMOTIDINE 20 MG INJ IV SCH (08:31)
[2016-06-24] MEDS: ENOXAPARIN 30 MG/0.3 ML SYG SC SCH (08:42)
[2016-06-24] MEDS: CEFEPIME 1GM/50 ML (PMX) 50 ML IVPB SCH ×2 (09:00→10:25)
--- NOTE | 2016-06-24 11:49 | PN ---
Date/Time of Note Date/Time of Note DATE: 06/24/16 TIME: 11:49 Assessment/Plan VTE Prophylaxis VTE Prophylaxis Intervention: LMWH Lines/Catheters IV Catheter Type (from [facility]): PICC Line Central line still needed: Yes Urinary Cath still in place: Yes Reason Cath still needed: skin wounds contaminated by urine Assessment/Plan Chief Complaint/Hosp Course Patient comes in with sepsis, pneumonia. She was treated with antibiotics. Patient was in respiratory failure but quickly improved. Patient slowly returned to baseline. Once stable, patient is then sent back to SNF. MICROBIOLOGY: Urine culture growing Klebsiella ESBL susceptible to cefepime. ANTIMICROBIALS: The patient is on IV cefepime. PHYSICAL EXAMINATION: GENERAL: This is well-developed, fragile, elderly woman who is awake, in no distress. HEENT: Head atraumatic, normocephalic. Sclerae anicteric. Buccal mucosa dry. NECK: Supple, trachea midline. CHEST: Rise symmetrical. Breath sounds diminished to bases. HEART: S1, S2. ABDOMEN: Soft, bowel sounds present. EXTREMITIES: No cyanosis. ASSESSMENT: 1. Status post septic shock. 2. Recurrent urinary tract infection. 3. Chronic obstructive pulmonary disease exacerbation, status post respiratory failure. 4. History of lung cancer. 5. Multiple decubitus. 6. 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 PLAN: The patient remains stable. Continue present care. Complete abx. Follow recommendations of specialists. [facility] staff Problems: Subjective 24 Hr Interval Summary Free Text/Dictation Patient feeling very depressed and complain of pain as well Exam/Review of Systems Vital Signs Vitals Vital Signs Date Time Temp Pulse Resp B/P Pulse Ox O2 Delivery O2 Flow Rate FiO2 06/24/16 11:26 97.9 101 18 120/85 96 06/24/16 01:20 2.0 06/23/16 20:05 Nasal Cannula Intake and Output 06/23/16 06/23/16 06/24/16 15:00 23:00 07:00 Intake Total 450 ml 1050 ml 1200 ml Output Total 1750 ml 3700 ml Balance -1300 ml 1050 ml -2500 ml Exam Constitutional: frail, well developed Head: atraumatic, normocephalic Neck: supple Respiratory: diminished breath sounds Cardiovascular: regular rate and rhythm Gastrointestinal: non-tender, soft Extremities: normal pulses Results Result Diagram: 06/23/16 0520 06/23/16 0520 Medications Medications Current Medications Sodium Chloride (NS) 1,000 ml @ 100 mls/hr Q10H IV Last administered on 10:24; Admin Dose 100 MLS/HR; Start 06/18/16 at 11:15 Ondansetron HCl (Zofran Inj) 4 mg Q6H PRN IV NAUSEA AND/OR VOMITING; Start 06/18 at 11:30 Acetaminophen (Tylenol Liquid) 650 mg Q6H PRN PO PAIN LEVEL 1-3 OR FEVER Last administered on 06/22/16 16:06; Admin Dose 650 MG; Start 06/18/16 at 11:30 Enoxaparin Sodium 30 mg 30 mg DAILY SC Last administered on 06/24/16 08:42; Admin Dose 30 MG; Start 06/19/16 at 09:00 Midazolam HCl/ Dextrose (Versed/D5W) 50 ml @ 1 mls/hr TITRATE IV Last administered on 06/19/16 12:07; Admin Dose 10 MLS/HR; Start 06/18/16 at 18:00 Famotidine 20 mg 20 mg DAILY IV Last administered on 06/24/16 08:31; Admin Dose 20 MG; Start 06/20/16 at 09:00 Cefepime HCl (Maxipime 1gm/50 ml (Pmx)) 50 ml @ 100 mls/hr Q12 IVPB Last administered on 06/24/16 10:25; Admin Dose 100 MLS/HR; Start 06/20/16 at 11:00 Morphine Sulfate (morphine) 3 mg Q2H PRN IV PAIN LEVEL 7-10 Last administered on 06/24/16 10:30; Admin Dose 3 MG; Start 06/22/16 at 13:00 MICHAEL HOROWITZ Jun 24, 2016 11:49
--- NOTE | 2016-06-24 14:17 | CONS ---
Date/Time of Note Date/Time of Note DATE: 06/24/16 TIME: 14:16 Consult Date/Type/Reason Admit Date/Time Jun 18, 2016 at 11:17 Type of Consultation: ID Subjective alert, feels good, no fevers, nad Objective Vital Signs Date Time Temp Pulse Resp B/P Pulse Ox O2 Delivery O2 Flow Rate FiO2 06/24/16 12:17 101 06/24/16 11:26 97.9 18 120/85 96 06/24/16 01:20 2.0 06/23/16 20:05 Nasal Cannula Intake and Output 06/23/16 06/23/16 06/24/16 15:00 23:00 07:00 Intake Total 450 ml 1050 ml 1200 ml Output Total 1750 ml 3700 ml Balance -1300 ml 1050 ml -2500 ml Results/Medications Result Diagram: 06/23/16 0520 06/23/16 0520 Medications Current Medications Sodium Chloride (NS) 1,000 ml @ 100 mls/hr Q10H IV Last administered on 10:24; Admin Dose 100 MLS/HR; Start 06/18/16 at 11:15 Ondansetron HCl (Zofran Inj) 4 mg Q6H PRN IV NAUSEA AND/OR VOMITING; Start 06/18 at 11:30 Acetaminophen (Tylenol Liquid) 650 mg Q6H PRN PO PAIN LEVEL 1-3 OR FEVER Last administered on 06/22/16 16:06; Admin Dose 650 MG; Start 06/18/16 at 11:30 Enoxaparin Sodium 30 mg 30 mg DAILY SC Last administered on 06/24/16 08:42; Admin Dose 30 MG; Start 06/19/16 at 09:00 Midazolam HCl/ Dextrose (Versed/D5W) 50 ml @ 1 mls/hr TITRATE IV Last administered on 06/19/16 12:07; Admin Dose 10 MLS/HR; Start 06/18/16 at 18:00 Famotidine 20 mg 20 mg DAILY IV Last administered on 06/24/16 08:31; Admin Dose 20 MG; Start 06/20/16 at 09:00 Cefepime HCl (Maxipime 1gm/50 ml (Pmx)) 50 ml @ 100 mls/hr Q12 IVPB Last administered on 06/24/16 10:25; Admin Dose 100 MLS/HR; Start 06/20/16 at 11:00 Morphine Sulfate (morphine) 3 mg Q2H PRN IV PAIN LEVEL 7-10 Last administered on 06/24/16 13:04; Admin Dose 3 MG; Start 06/22/16 at 13:00 Assessment/Plan Chief Complaint/Hosp Course MICROBIOLOGY: Urine culture growing Klebsiella ESBL susceptible to cefepime. ANTIMICROBIALS: The patient is on IV cefepime. PHYSICAL EXAMINATION: GENERAL: This is well-developed, fragile, elderly woman who is awake, in no distress. HEENT: Head atraumatic, normocephalic. Sclerae anicteric. Buccal mucosa dry. NECK: Supple, trachea midline. CHEST: Rise symmetrical. Breath sounds diminished to bases. HEART: S1, S2. ABDOMEN: Soft, bowel sounds present. EXTREMITIES: No cyanosis. ASSESSMENT: 1. Status post septic shock. 2. Recurrent urinary tract infection. 3. Chronic obstructive pulmonary disease exacerbation, status post respiratory failure. 4. History of lung cancer. 5. Multiple decubitus. 6. 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 PLAN: The patient remains stable. Continue present care. Complete abx for couple more days. Follow recommendations of specialists. [facility] staff Problems: RUBIN MAYEN NP Jun 24, 2016 14:17
--- NOTE | 2016-06-24 15:38 | CONS ---
Date/Time of Note Date/Time of Note DATE: 06/24/16 TIME: 15:36 Consult Date/Type/Reason Admit Date/Time Jun 18, 2016 at 11:17 Initial Consult Date Type of Consultation: pulm Subjective No events. Objective Vital Signs Date Time Temp Pulse Resp B/P Pulse Ox O2 Delivery O2 Flow Rate FiO2 06/24/16 15:08 97.9 106 18 103/79 96 06/24/16 08:10 Nasal Cannula 3.0 Intake and Output 06/23/16 06/23/16 06/24/16 15:00 23:00 07:00 Intake Total 450 ml 1050 ml 1200 ml Output Total 1750 ml 3700 ml Balance -1300 ml 1050 ml -2500 ml HEENT: Pupils equal, round, and reactive to light. CARDIAC: S1, S2, 2 systolic ejection murmur CHEST: clear ABDOMEN: Mildly distended. Bowel sounds present no guarding or rebound EXTREMITIES: No cyanosis, clubbing or edema. Results/Medications Result Diagram: 06/23/16 0520 06/23/16 0520 Medications Current Medications Sodium Chloride (NS) 1,000 ml @ 100 mls/hr Q10H IV Last administered on 10:24; Admin Dose 100 MLS/HR; Start 06/18/16 at 11:15 Ondansetron HCl (Zofran Inj) 4 mg Q6H PRN IV NAUSEA AND/OR VOMITING; Start 06/18 at 11:30 Acetaminophen (Tylenol Liquid) 650 mg Q6H PRN PO PAIN LEVEL 1-3 OR FEVER Last administered on 06/22/16 16:06; Admin Dose 650 MG; Start 06/18/16 at 11:30 Enoxaparin Sodium 30 mg 30 mg DAILY SC Last administered on 06/24/16 08:42; Admin Dose 30 MG; Start 06/19/16 at 09:00 Midazolam HCl/ Dextrose (Versed/D5W) 50 ml @ 1 mls/hr TITRATE IV Last administered on 06/19/16 12:07; Admin Dose 10 MLS/HR; Start 06/18/16 at 18:00 Famotidine 20 mg 20 mg DAILY IV Last administered on 06/24/16 08:31; Admin Dose 20 MG; Start 06/20/16 at 09:00 Cefepime HCl (Maxipime 1gm/50 ml (Pmx)) 50 ml @ 100 mls/hr Q12 IVPB Last administered on 06/24/16 10:25; Admin Dose 100 MLS/HR; Start 06/20/16 at 11:00 Morphine Sulfate (morphine) 3 mg Q2H PRN IV PAIN LEVEL 7-10 Last administered on 06/24/16 13:04; Admin Dose 3 MG; Start 06/22/16 at 13:00 Assessment/Plan Additional Assessment/Plan IMPRESSION: 1. History of chronic obstructive pulmonary disease. 2. History of lung cancer. 3. Recurrent hypoxemic and hypercapnic respiratory failure. Now extubated 4. Encephalopathy, underlying dementia 5. Anemia status post PRBCs 6. Multiple decubitus ulcers PLAN: 1. Titrate FiO2 2. Mobilize OOB 3. PT/OT PABLO OSMAN MD Jun 24, 2016 15:37
== END 2016-06-24 20:33 | DRG 871 ==
LOC: E/R 08:00 → ICU 11:17 → TEL 06-21 13:09
PROVIDERS: ADMIT Internal Medicine; ATTEND Internal Medicine
PROC: 5A1945Z Respiratory Ventilation, 24-96 Consecutive Hours (ICD-10-PCS; principal; 2016-06-18)
PROC: 0BH17EZ Insertion of Endotracheal Airway into Trachea, Via Natural or Artificial Opening (ICD-10-PCS; 2016-06-18)
PROC: 30233N1 Transfusion of Nonautologous Red Blood Cells into Peripheral Vein, Percutaneous Approach (ICD-10-PCS; 2016-06-20)
DX: A41.9 Sepsis, unspecified organism (principal); J96.02 Acute respiratory failure with hypercapnia; R65.21 Severe sepsis with septic shock; I50.33 Acute on chronic diastolic (congestive) heart failure; G93.40 Encephalopathy, unspecified; J18.9 Pneumonia, unspecified organism; J96.01 Acute respiratory failure with hypoxia; J96.92 Respiratory failure, unspecified with hypercapnia; L89.154 Pressure ulcer of sacral region, stage 4; L89.214 Pressure ulcer of right hip, stage 4; J96.91 Respiratory failure, unspecified with hypoxia; J44.1 Chronic obstructive pulmonary disease with (acute) exacerbation; N39.0 Urinary tract infection, site not specified; D62 Acute posthemorrhagic anemia; I95.9 Hypotension, unspecified; I10 Essential (primary) hypertension; I07.1 Rheumatic tricuspid insufficiency; Y95 Nosocomial condition; B96.1 Klebsiella pneumoniae [K. pneumoniae] as the cause of diseases classified elsewhere; E87.6 Hypokalemia; Z85.118 Personal history of other malignant neoplasm of bronchus and lung; Z88.0 Allergy status to penicillin; Z88.6 Allergy status to analgesic agent; Z22.322 Carrier or suspected carrier of Methicillin resistant Staphylococcus aureus
CPT/HCPCS: 36415; 36430; 36600; 70450; 71010; 80048; 80053; 81001; 81003; 82803; 83605; 83735; 84100; 84134; 84484; 85014; 85018; 85025; 85610; 85730; 86850; 86900; 86901; 86920; 87040; 87081; 87086; 90686; 92526; 92610; 93005; 94002; 94003; 94770; 96365; 96366; 96368; J1940; J0330; J0692; J1650; J2270; J2997; J3370; J3475; J3480; J7030; P9016

== ENCOUNTER 2016-08-14 10:32 | Inpatient (IN) | payer MEDICARE, MEDICAID ==
[2016-08-14] VITALS (17 sets, daily range): BP systolic 74–181; BP diastolic 57–135; PULSE 75–96; RESP 15–23; TEMP 97.1; Ht 162.6 cm; Wt 68.0 kg
[~2016-08-14] VITALS: Ht 162.6 cm; Wt 68.0 kg
[~2016-08-14 10:32] MED LIST changes: +LEVO125T PO; -LEVO125T79 PO
[2016-08-14] MEDS ORDERED: SOD CHLORIDE 0.9% 500 ML IV STA (10:38)
[2016-08-14] MEDS ORDERED: SOD CHLORIDE 0.9% 1,000 ML IV STA (10:38)
[2016-08-14] MEDS ORDERED: ALBUTEROL 0.5% (NEB) 2.5 MG/0.5 ML AMP HHN STA (10:40)
[2016-08-14] MEDS ORDERED: SODIUM CHLORIDE 0.9% 1L BAG IV* STA (10:50)
[2016-08-14] MEDS ORDERED: AZTREONAM 1 GM/NS (PMX) 50 ML IVPB ONE (11:00)
[2016-08-14] MEDS ORDERED: ONDANSETRON 4 MG INJ IV PRN (11:00)
[2016-08-14] MEDS ORDERED: ACETAMINOPHEN 325 MG TAB PO PRN (11:00)
[2016-08-14] MEDS ORDERED: IPRATROPIUM (NEB) 0.5 MG/2.5 ML AMP HHN ONE (11:00)
[2016-08-14] MEDS ORDERED: VANCOMYCIN 1 GM (PMX) 250 ML IVPB ONE (11:00)
[2016-08-14 11:11] LABS: AADO2 Arterial 75.6 mmHg (7.0-24.0); Allen Test ACCEPTAB; Arterial Base Excess 5.1 mmol/L (-3.0-3); Arterial COHb 0.1 % (0.0-3.0); Arterial Fraction of Oxyhgb 87.2 % (93.0-99.0); Arterial HCO3 30.5 mmol/L (22.0-26.0); Arterial MetHb 0.4 % (0.0-1.5); Arterial Total Hemglobin 10.6 g/dl (12.0-18.0); MODE NASAL CANNULA
[2016-08-14 11:25] LABS: ADD SCAN DIFF NO
[2016-08-14 11:28] LABS: ABNORMAL IP MESSAGE 1; HEMATOCRIT 33.7 % (37.0-47.0); HEMOGLOBIN 9.9 g/dl (12.0-16.0); MEAN CORPUSCULAR HEMOGLOBIN 26.7 pg (29.0-33.0); MEAN CORPUSCULAR HGB CONC 29.4 g/dl (32.0-37.0); MEAN CORPUSCULAR VOLUME 90.8 fl (82.0-101.0); MEAN PLATELET VOLUME 10.3 fl (7.4-10.4); PLATELET COUNT 227 10^3/UL (140-415); RED BLOOD COUNT 3.71 10^6/ul (4.20-5.40); RED CELL DISTRIBUTION WIDTH 18.7 % (11.5-14.5)
[2016-08-14] MEDS ORDERED: LIDOCAINE 1% (MDV) 20 ML INJ SC ONE (11:30)
--- NOTE | 2016-08-14 11:31 | RADRPT ---
PROCEDURE: XR Chest. CLINICAL INDICATION: Respiratory failure. TECHNIQUE: Single AP portable chest COMPARISON: 07/18/2016 FINDINGS: The cardiomediastinal silhouette is within normal limits of size . Atherosclerotic calcification of the aorta. Fullness of left suprahilar region with a 6.2 x 6.8 cm well circumscribed rounded densit y in the left lower lobe which may represent mass or loculated pleural fluid. This is stable compar ed to prior study 07/18/2016. This appears contiguous with left normal vascular structure. CT adri elation is recommended. Diffuse of vascular congestion and or common interstitial/alveolar air spac e disease. No focal airspace opacity in the right infrahilar region. . No pneumothorax. The osseous structures and soft tissues are unremarkable. IMPRESSION: 1. 6.2 x 6.8 cm left lower lobe well circumscribed opacity which may reflect loculated pleural effus ion or mass. This has not significantly changed compared to previous study. CT correlation is betsy mmended. 2. Diffuse interstitial and alveolar air space disease with more focal airspace opacity in the righ t infrahilar region. This may represent pulmonary edema or infectious process.. RPTAT:AAJJ Physician Soraida Date Time Electronically viewed and signed by Physician Soraida on 08/14/2016 11:31 ADONAY/
[2016-08-14 11:39] LABS: ALBUMIN 2.5 g/dl (3.3-4.9); CHLORIDE 109 mmol/L (97-110)
[2016-08-14 11:40] LABS: POTASSIUM 4.9 mmol/L (3.5-5.1); SODIUM 153 mmol/L (135-144)
[2016-08-14 11:42] LABS: ALBUMIN/GLOBULIN RATIO 0.69; ALKALINE PHOSPHATASE 146 IU/L (42-121); ANION GAP 20 (8-16); ASPARTATE AMINO TRANSFERASE 17 IU/L (15-46); BILIRUBIN,INDIRECT 0.5 mg/dl (0-1.1); BILIRUBIN,TOTAL 0.5 mg/dl (0.2-1.3); CARBON DIOXIDE 29 mmol/L (21-31); CREATININE 1.06 mg/dl (0.44-1.00); TOTAL PROTEIN 6.1 g/dl (6.1-8.1)
[2016-08-14 11:43] LABS: ALANINE AMINOTRANSFERASE 12 IU/L (13-69); BLOOD UREA NITROGEN 35 mg/dl (7-20); CALCIUM 8.2 mg/dl (8.4-10.2); GLUCOSE 72 mg/dl (70-220)
[2016-08-14 12:02] LABS: TROPONIN-I < 0.010 ng/ml (0.00-0.12)
[2016-08-14 12:24] LABS: INR 1.99; PROTIME 22.8 Sec (12.2-14.2); PT RATIO 1.8
[2016-08-14 12:25] LABS: PARTIAL THROMBOPLASTIN TIME 51.5 Sec (25.0-35.0)
[2016-08-14 13:38] LABS: LYMPHOCYTES # 3.4 10^3/ul (0.8-2.9); MONOCYTE # 1.1 10^3/ul (0.3-0.9)
--- NOTE | 2016-08-14 13:39 | CONS ---
Date/Time of Note Date/Time of Note DATE: 08/14/16 TIME: 13:33 Assessment/Plan Assessment/Plan Additional Assessment/Plan Chest x-ray was reviewed from today which is showing bilateral interstitial nodular changes also identified in the left lower lobe mass. Assessment and recommendation; next 1. Patient admitted with hypoxemia however ABG is borderline on BiPAP. Not exhibiting any signs of CO2 retention. 2. Likely underlying malignancy with recurrence. 3. Severe sepsis with sacral ulcer. 4. History of severe COPD. 5. History of severe muscular wasting. We will continue current antibiotics. Continue BiPAP for now continue other supportive measures. Patient likely would need a wound debridement of the sacral wound. Overall prognosis remains poor. Further imaging of chest is not recommended for evaluation of the left lower lobe lung mass as the patient is a very poor candidate for any intervention. Consultation Date/Type/Reason Admit Date/Time Date of Consultation: Aug 14, 2016 Type of Consultation: Pulmonary/critical care Reason for Consultation Pulmonary consultation obtained for evaluation of hypoxemia. Patient admitted with severe sepsis. History of present illness; patient is a 65-year-old F Spanish lady who was sent over to the hospital from the [facility] with complaints of being hypotensive. Patient also was getting progressively more hypoxemic. Evaluation a chest x-ray was done which is showing bilateral interstitial disease with a left lower lobe lung mass which has been fairly stable so far. He also has severe leukocytosis. Patient is currently on BiPAP and was able to give some history by herself. She is well known to me from [facility] where she had a long stay for recuperation. And was subsequently discharged to [facility]. Past medical history; next 1. History of severe end-stage COPD. 2. History of severe sacral decubitus ulcer. 3. History of anemia. 4. History of lung cancer in the past. Medications; were reviewed. Allergies; penicillin, aspirin, ibuprofen. Social history; patient does have a history of smoking in the past. Family history; patient is single. Does not have any family. 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 Review of systems; very limited review of systems could be obtained. Patient is on BiPAP. Complains of shortness of breath. Denies any chest pain, any abdominal pain nausea vomiting. General examination; elderly lady, on BiPAP appears severely emaciated. She is awake and alert. Social History Smoking Status: Unknown if ever smoked Exam/Review of Systems Vital Signs Vitals Vital Signs Date Time Temp Pulse Resp B/P Pulse Ox O2 Delivery O2 Flow Rate FiO2 08/14/16 11:15 96 98 35 08/14/16 10:45 97.1 29 89/70 Nasal Cannula 2.0 Exam HEENT examination; supple neck, no JVD. No lymphadenopathy. Midline trachea. Patient a few remaining teeth which all appear carious. Pupils are small bilaterally. No neck masses. No thyromegaly. No lymphadenopathy. Chest examination; diminished breath sounds throughout. No added sounds. S1- S2 audible, no murmurs. Regular rhythm. Abdomen examination; scaphoid, nondistended, nontender. No organomegaly felt. Bowel sounds audible. Back examination; reveals a sacral stage III decubitus ulcer. Extremity examination; no peripheral edema. Patient has severe muscular wasting involving the entire body. QUALITY ASSURANCE CALIBRATOR examination; patient follows command moves all 4 extremities. Results Result Diagram: 08/14/16 1010 08/14/16 1010 Results 24 hrs Laboratory Tests Test 08/14/16 10:10 08/14/16 10:50 08/14/16 11:43 08/14/16 12:10 Alanine Aminotransferase (ALT/SGPT) 12 L Albumin 2.5 L Albumin/Globulin Ratio 0.69 Alkaline Phosphatase 146 H Anion Gap 20 H Aspartate Amino Transf (AST/SGOT) 17 Basophils # Basophils % Blood Urea Nitrogen 35 H Calcium Level 8.2 L Carbon Dioxide Level 29 Chloride Level 109 Creatinine 1.06 H Direct Bilirubin 0.00 Globulin 3.60 H Glucose Level 72 Hematocrit 33.7 L Hemoglobin 9.9 L Indirect Bilirubin 0.5 Mean Corpuscular Hemoglobin 26.7 L Mean Corpuscular Hemoglobin Concent 29.4 L Mean Corpuscular Volume 90.8 Mean Platelet Volume 10.3 # Platelet Count 227 Potassium Level 4.9 Red Blood Count 3.71 L Red Cell Distribution Width 18.7 H Sodium Level 153 H Total Bilirubin 0.5 Total Protein 6.1 Troponin I < 0.010 White Blood Count 56.7 #H Arterial Blood HCO3 30.5 H Arterial Blood Base Excess 5.1 H Arterial Blood Oxygen Saturation 87.6 L Nader Test ACCEPTAB Arterial Blood Gas Puncture Site Right Radial Arterial Blood Carboxyhemoglobin 0.1 Arterial Blood Date Drawn 08/14/2016 11:01:30 AM Arterial Blood Methemoglobin 0.4 Arterial Blood pCO2 (Temp correct) 48.9 H Arterial Blood pH (Temp corrected) 7.413 Arterial Blood pO2 (Temp corrected) 59.1 L Blood Gas A-a O2 Differential 75.6 H Blood Gas Modality NASAL CANNULA Blood Gas Notified Time 08/14/2016 11:10:57 AM Blood Gas Notified Whom TM Blood Gas Specimen Source Blood arterial Blood Gas Temperature 37.0 FiO2 27.0 Oxyhemoglobin Percent 87.2 L Total Hemoglobin 10.6 L Activated Partial Thromboplast Time 51.5 H INR International Normalized Ratio 1.99 Prothrombin Time Pending Prothrombin Time Ratio 1.8 Lactic Acid Level 2.6 H REGINE BUCKLEY Aug 14, 2016 13:38
--- NOTE | 2016-08-14 13:44 | ERA ---
ER Documentation Chief Complaint Date/Time DATE: 08/14/16 TIME: 13:41 Chief Complaint WEAKNESS, POOR APPETITE SINCE YESTERDAY HPI Patient is a 65-year-old female with COPD who presents with shortness of breath. Please note the history and physical exam is limited secondary to the patient's ability to give a history. The patient was brought in by ambulance. The patient was transferred from [facility]. She has had decreased intake by mouth over the past 10 days. She has cough and hypoxia. Her primary doctor is Dr. Dozier. Upon review of old medical record she has had multiple visits with admissions in the past. ROS All systems reviewed and are negative except as per history of present illness. Medications Home Meds Active Scripts Pantoprazole* (Pantoprazole*) 40 Mg Tablet., 40 MG PO BID@06,18 for 30 Days Prov:JILL MYERS 01/04/16 Losartan Potassium* (Cozaar*) 50 Mg Tablet, 50 MG PO DAILY for 30 Days, TAB Prov:JILL MYERS 01/04/16 Ferrous Sulfate* (Ferrous Sulfate*) 325 Mg Tabec, 325 MG PO BID for 30 Days, TAB Prov:REGJILL KENYON 01/04/16 Duloxetine Hcl* (Cymbalta*) 20 Mg Capsule., 20 MG PO DAILY for 30 Days Prov:JILL MYERS 01/04/16 Docusate Sodium* (Colace*) 100 Mg Capsule, 100 MG PO Q12H Y for CONSTIPATION, # 30 CAP Prov:JILL MYERS 01/04/16 Doxazosin Mesylate* (Cardura*) 2 Mg Tablet, 2 MG PO QPM for 30 Days, TAB Prov:JILL MYERS 01/04/16 Reported Medications Alprazolam* (Xanax*) 0.5 Mg Tab, 0.5 MG PO Q12 Y for ANXIETY, TAB 05/23/16 Levothyroxine Sodium* (Synthroid*) 125 Mcg Tablet, 125 MCG PO BEFORE BREAKFAST, #30 TAB 05/23/16 Clopidogrel Bisulfate (Clopidogrel) 75 Mg Tablet, 75 MG PO DAILY, #30 TAB 05/23/16 Metoprolol Tartrate* (Lopressor*) 50 Mg Tab, 50 MG PO BID, #60 TAB hold if SBP <110 or HR <60 05/23/16 Atorvastatin Calcium* (Atorvastatin Calcium*) 20 Mg Tablet, 20 MG PO QHS, #30 TAB 05/23/16 Lactobacillus Acidoph/Bulgaricus* (Floranex*) 1 Each Tablet, 1 TAB.CHEW PO TID, TAB.CHEW 05/23/16 Gabapentin* (Gabapentin*) 300 Mg Capsule, 300 MG PO TID, #90 CAP 05/23/16 Famotidine* (Famotidine*) 20 Mg Tablet, 20 MG PO DAILY, #30 TAB 05/23/16 Ipratropium-Albuterol (Ipratropium-Albuterol) 0.5-3 Mg/3 Ml Ampul.neb, 3 ML INHALATION Q8 Y for SHORTNESS OF BREATH, #30 VIAL 05/23/16 Ascorbic Acid* (Ascorbic Acid*) 500 Mg/5 Ml Syrup, 500 MG PO BID, #300 ML 05/23/16 Zolpidem Tartrate* (Ambien*) 5 Mg Tablet, 5 MG PO QHS Y for INSOMNIA, #30 TAB 05/23/16 Morphine Sulfate* (Ms Contin*) 60 Mg Tablet.sa, 60 MG PO TID, TAB.SA 01/31/16 Diazepam* (Diazepam*) 10 Mg Tablet, 10 MG PO DAILY, TAB 01/31/16 Discontinued Reported Medications Gabapentin* (Gabapentin*) 300 Mg Capsule, 300 MG PO TID, #90 CAP 01/31/16 Allergies Allergies: Coded Allergies: Penicillins (Verified Allergy, Intermediate, RASH, 06/22/16) aspirin (Verified Adverse Reaction, Mild, GI DISTRESS, 06/22/16) ibuprofen (Verified Adverse Reaction, Mild, GI DISTRESS, 06/22/16) PMhx/Soc History of Surgery: Yes (DEBRIDEMENT OF WOUNDS, OTHER SURGERY UNKNOWN) Anesthesia Reaction: No (UNK) Hx Neurological Disorder: No (UNK) Hx Respiratory Disorders: Yes (COPD, LUNG CA, ASTHMA) Hx Cardiac Disorders: Yes Hx Psychiatric Problems: No (UNK) Hx Miscellaneous Medical Probl: Yes (COPD, NON-COMPLIANCE) Hx Alcohol Use: No Hx Substance Use: No Hx Tobacco Use: No Smoking Status: Unknown if ever smoked FmHx Unable to obtain Physical Exam Vitals Vital Signs Date Time Temp Pulse Resp B/P Pulse Ox O2 Delivery O2 Flow Rate FiO2 08/14/16 11:15 96 98 35 08/14/16 10:45 97.1 80 29 89/70 88 Nasal Cannula 2.0 08/14/16 10:45 Nasal Cannula 2.0 08/14/16 10:45 Nasal Cannula 2 08/14/16 10:41 97.7 86 20 89/70 95 Physical Exam Const: Ill-appearing Head: Atraumatic Eyes: Normal Conjunctiva ENT: Dry mucous membranes Neck: Full range of motion..~ No meningismus. Resp: Cough with decreased breath sounds bilaterally Cardio: Regular rate and rhythm, no murmurs Abd: Soft, non tender, non distended. Normal bowel sounds Skin: Pale Back: No midline or flank tenderness Ext: No cyanosis, or edema Neur: Awake but confused Result Diagram: 08/14/16 1010 08/14/16 1010 Results 24 hrs Laboratory Tests Test 08/14/16 10:10 08/14/16 10:50 08/14/16 11:43 08/14/16 12:10 Alanine Aminotransferase (ALT/SGPT) 12IU/L Albumin 2.5g/dl Albumin/Globulin Ratio 0.69 Alkaline Phosphatase 146IU/L Anion Gap 20 Aspartate Amino Transf (AST/SGOT) 17IU/L Basophils # 10^3/ul Basophils % % Blood Urea Nitrogen 35mg/dl Calcium Level 8.2mg/dl Carbon Dioxide Level 29mmol/L Chloride Level 109mmol/L Creatinine 1.06mg/dl Direct Bilirubin 0.00mg/dl Globulin 3.60g/dl Glucose Level 72mg/dl Hematocrit 33.7% Hemoglobin 9.9g/dl Indirect Bilirubin 0.5mg/dl Mean Corpuscular Hemoglobin 26.7pg Mean Corpuscular Hemoglobin Concent 29.4g/dl Mean Corpuscular Volume 90.8fl Mean Platelet Volume 10.3fl Platelet Count 78142^3/UL Potassium Level 4.9mmol/L Red Blood Count 3.7110^6/ul Red Cell Distribution Width 18.7% Sodium Level 153mmol/L Total Bilirubin 0.5mg/dl Total Protein 6.1g/dl Troponin I < 0.010ng/ml White Blood Count 56.710^3/ul Arterial Blood HCO3 30.5mmol/L Arterial Blood Base Excess 5.1mmol/L Arterial Blood Oxygen Saturation 87.6mmHG Nader Test ACCEPTAB Arterial Blood Gas Puncture Site Right Radial Arterial Blood Carboxyhemoglobin 0.1% Arterial Blood Date Drawn 08/14/2016 11:01:30 AM Arterial Blood Methemoglobin 0.4% Arterial Blood pCO2 (Temp correct) 48.9mmhg Arterial Blood pH (Temp corrected) 7.413 Arterial Blood pO2 (Temp corrected) 59.1mmHG Blood Gas A-a O2 Differential 75.6mmHg Blood Gas Modality NASAL CANNULA Blood Gas Notified Time 08/14/2016 11:10:57 AM Blood Gas Notified Whom TM Blood Gas Specimen Source Blood arterial Blood Gas Temperature 37.0C FiO2 27.0% Oxyhemoglobin Percent 87.2% Total Hemoglobin 10.6g/dl Activated Partial Thromboplast Time 51.5Sec INR International Normalized Ratio 1.99 Prothrombin Time Pending Prothrombin Time Ratio 1.8 Lactic Acid Level 2.6mmol/L Current Medications Medications (Trade) Dose Ordered Sig/Tray Route PRN Reason Start Time Stop Time Status Last Admin Dose Admin Vancomycin HCl 250 ml @ 125 mls/hr ONCE ONCE IVPB 08/14/16 11:00 08/14/16 12:59 DC Aztreonam 50 ml @ 100 mls/hr ONCE ONCE IVPB 08/14/16 11:00 08/14/16 11:29 DC Sodium Chloride 500 ml @ 500 mls/hr Q1H STAT IV 08/14/16 10:38 08/14/16 10:52 DC Sodium Chloride (NS) 1,000 ml @ 1,000 mls/hr Q1H STAT IV 08/14/16 10:38 08/14/16 10:52 DC Albuterol (Proventil 0.5% (Neb)) 5 mg ONCE STAT HHN 08/14/16 10:40 08/14/16 10:41 DC 08/14/16 11:39 Ipratropium Rozel (Atrovent 0.02% (Neb)) 0.5 mg ONCE ONCE HHN 08/14/16 11:00 08/14/16 11:01 DC 08/14/16 11:39 Sodium Chloride (NS) 2,110 ml BOLUS OVER 2 HOURS STAT IV* 08/14/16 10:50 08/14/16 10:51 DC 08/14/16 11:00 Ondansetron HCl (Zofran Inj) 4 mg ER BRIDGE PRN IV NAUSEA AND/OR VOMITING 08/14/16 11:00 2/28/17 10:59 Acetaminophen (Tylenol Tab) 650 mg ER BRIDGE PRN PO MILD PAIN/FEVER 08/14/16 11:00 08/15/16 10:59 Lidocaine (Xylocaine 1% (Mdv) 20 ml) 20 ml ONCE ONCE SC 08/14/16 11:30 08/14/16 11:32 DC Procedures/MDM Chest x-ray shows left lung mass and pneumonia per radiology. EKG read by me: Rate/Rhythm: Regular rate and rhythm at a rate of 77 Intervals: Normal Impression: No evidence of ischemia or arrhythmia Admit MDM: Patient's infectious symptoms have not stabilized and the patient is at risk of rapid decompensation. The patient will be admitted for careful hydration, antibiotic therapy, and infectious source control. Severe Sepsis criteria: Infectious source: Pneumonia End organ damage indicated by: Lactate greater than 2 Sepsis Management: Time of recognition of sepsis: 12:10 Within 3 hours of recognition: Blood cultures x 2 before broad-spectrum antibiotics: Delayed because of IV access issues 30 ml/kg NS bolus delayed because of IV access issues Initial lactate 2.6 Repeat lactate pending Time of recognition of septic shock: No septic shock Septic Shock Assessment: Any lactic acid > 4.0 No Persistent hypotension (SBP < 90 or 40 mmHg drop, MAP < 65) despite 30 mL/kg IV fluid bolus No Volume Re-assessment for Septic Shock (post 30 ml/kg bolus): No septic shock at this time Persistent Hypotension Treatment: Comfort care No Central line PICC line pending Vasopressor started Not required I considered further perfusion assessment with CVP measurement, SCVO2, bedside ultrasound volume assessment, passive leg raise, trial of further fluid bolus. And proceeded with 30 ml/kg fluid bolus of NSS, broad spectrum antibiotics, and admission. The patient has a very poor prognosis and I believe a discussion regarding goals of care would be appropriate. The patient would likely be a hospice candidate. The patient need to be placed on BiPAP therapy for hypoxia and respiratory distress. Accepting Care Team Current data and ongoing care discussed. Admitting Physician: Dr. Dozier who is the primary doctor Commercial Portfolio Manager(s): None Outstanding Data: Culture results and repeat lactic acid Critical Care: Critical care time 45 minutes excluding all billable procedures Emergent fluid management while maintaining close respiratory support. Provision of immediate and broad-spectrum antibiotic therapy. Simultaneous assessment for possible sources in order to direct targeted therapy. Consideration for invasive and chemical support to prevent cardiopulmonary collapse. Departure Diagnosis: Primary Impression: Pneumonia Qualified Code: J18.9 - Pneumonia due to infectious organism, unspecified laterality, unspecified part of lung Additional Impressions: Shortness of breath Hypoxia Dehydration Severe sepsis Condition: Serious GORGE RODGERS MD Aug 14, 2016 13:44
[2016-08-14] MEDS ORDERED: hydrALAzine 20 MG INJ IV PRN (15:30)
--- NOTE | 2016-08-14 15:35 | RADRPT ---
PROCEDURE: US guidance for PICC line CLINICAL INDICATION: PICC line placement TECHNIQUE: Multiple real-time images were acquired of the patient's arm utilizing a high resolutio n transducer. This was performed by the PICC line nurse for venous access. COMPARISON: None FINDINGS: Ultrasound guidance for PICC line placement. IMPRESSION: Ultrasound guidance for PICC line placement. RPTAT: AA .Avelino Almonte MD, MD Date Time Electronically viewed and signed by .Avelino Almonte MD, on 08/14/2016 15:35 .S/
--- NOTE | 2016-08-14 15:43 | PN ---
Date/Time of Note Date/Time of Note DATE: 08/14/16 TIME: 15:43 Assessment/Plan VTE Prophylaxis VTE Prophylaxis Intervention: SCD's Exam/Review of Systems Vital Signs Vitals Vital Signs Date Time Temp Pulse Resp B/P Pulse Ox O2 Delivery O2 Flow Rate FiO2 08/14/16 14:49 88 08/14/16 11:29 23 181/135 91 CPAP 08/14/16 11:15 35 08/14/16 10:45 97.1 2.0 Results Result Diagram: 08/14/16 1010 08/14/16 1010 Results 24 hrs Laboratory Tests Test 08/14/16 10:10 08/14/16 10:50 08/14/16 11:43 08/14/16 12:10 Alanine Aminotransferase (ALT/SGPT) 12 L Albumin 2.5 L Albumin/Globulin Ratio 0.69 Alkaline Phosphatase 146 H Anion Gap 20 H Aspartate Amino Transf (AST/SGOT) 17 Band Neutrophils % 1.0 Basophils # Basophils % Blood Urea Nitrogen 35 H Calcium Level 8.2 L Carbon Dioxide Level 29 Chloride Level 109 Creatinine 1.06 H Differential Comment MANUAL DIFF Direct Bilirubin 0.00 Globulin 3.60 H Glucose Level 72 Hematocrit 33.7 L Hemoglobin 9.9 L Indirect Bilirubin 0.5 Lymphocytes # 3.4 H Lymphocytes % 6.0 L Mean Corpuscular Hemoglobin 26.7 L Mean Corpuscular Hemoglobin Concent 29.4 L Mean Corpuscular Volume 90.8 Mean Platelet Volume 10.3 # Metamyelocytes # 0.6 Metamyelocytes % 1.0 H Monocytes # 1.1 H Monocytes % 2.0 Neutrophils # 51.0 H Neutrophils % 90.0 H Platelet Count 227 Potassium Level 4.9 Red Blood Count 3.71 L Red Cell Distribution Width 18.7 H Sodium Level 153 H Total Bilirubin 0.5 Total Protein 6.1 Troponin I < 0.010 White Blood Count 56.7 #H Arterial Blood HCO3 30.5 H Arterial Blood Base Excess 5.1 H Arterial Blood Oxygen Saturation 87.6 L Nader Test ACCEPTAB Arterial Blood Gas Puncture Site Right Radial Arterial Blood Carboxyhemoglobin 0.1 Arterial Blood Date Drawn 08/14/2016 11:01:30 AM Arterial Blood Methemoglobin 0.4 Arterial Blood pCO2 (Temp correct) 48.9 H Arterial Blood pH (Temp corrected) 7.413 Arterial Blood pO2 (Temp corrected) 59.1 L Blood Gas A-a O2 Differential 75.6 H Blood Gas Modality NASAL CANNULA Blood Gas Notified Time 08/14/2016 11:10:57 AM Blood Gas Notified Whom TM Blood Gas Specimen Source Blood arterial Blood Gas Temperature 37.0 FiO2 27.0 Oxyhemoglobin Percent 87.2 L Total Hemoglobin 10.6 L Activated Partial Thromboplast Time 51.5 H INR International Normalized Ratio 1.99 Prothrombin Time 22.8 #H Prothrombin Time Ratio 1.8 Lactic Acid Level 2.6 H Medications Medications Current Medications Hydralazine HCl (Apresoline) 10 mg Q4H PRN IV SBP>170; Start 08/14/16 at 15:30 REBECCA ISLAS Aug 14, 2016 15:43 INR International Normalized Ratio 1.99 Prothrombin Time 22.8 #H Prothrombin Time Ratio 1.8 Lactic Acid Level 2.6 H Medications Medications Current Medications Hydralazine HCl (Apresoline) 10 mg Q4H PRN IV SBP>170; Start 08/14/16 at 15:30 REBECCA ISLAS Aug 14, 2016 15:43
--- NOTE | 2016-08-14 16:07 | RADRPT ---
PROCEDURE: XR Chest. CLINICAL INDICATION: PICC line placement TECHNIQUE: Single frontal view of the chest was obtained COMPARISON: Same day FINDINGS: There is a new left-sided PICC line in place with its tip overlying the cavoatrial junction. The heart, mediastinum, and lungs are unchanged. There are bibasilar infiltrates. There is a left lower lobe opacity, unchanged. The heart is jennifer l in size. RPTAT: AA IMPRESSION: New PICC line in appropriate position. .Avelino Almonte MD, MD Date Time Electronically viewed and signed by .Avelino Almonte MD, MD on 08/14/2016 16:07 .S/
--- NOTE | 2016-08-14 16:37 | CONS ---
Date/Time of Note Date/Time of Note DATE: 08/14/16 TIME: 16:32 Assessment/Plan Assessment/Plan Additional Assessment/Plan Sepsis Hypotension Diastolic congestive heart failure Pulmonary hypertension Preserved ejection fraction Tricuspid valve regurgitation Lung cancer -Patient with hypotension, leukocytosis and worsening encephalopathy. Would continue IV fluids secondary to hypovolemia and hypotension. If the patient with recurrent sustained hypotension, might need initiation of IV pressor. Antibiotics as per infectious disease. Withhold any diuretics or antihypertensives at the current time. Consultation Date/Type/Reason Admit Date/Time Type of Consultation: cv Reason for Consultation Worsening mental status and shortness of breath Hx of Present Illness This is a 65-year-old female with past medical history of lung cancer, poor functional status who has per the family has been weaker over the past week and a half, not eating and progressive worsening mental status. Today, patient with worsening shortness of breath and brought to the emergency room. Patient unable to give history at the current time. As for the family, patient has been very weak. Unable to be performed at the current time given patient's mental status Past Medical History Lung cancer Diastolic congestive heart failure Pulmonary hypertension Medical History: hypertension Family History Significant Family History: no pertinent family hx Social History Smoking Status: Former smoker Other Social History From nursing facility Exam/Review of Systems Vital Signs Vitals Vital Signs Date Time Temp Pulse Resp B/P Pulse Ox O2 Delivery O2 Flow Rate FiO2 08/14/16 14:49 88 08/14/16 11:29 23 181/135 91 CPAP 08/14/16 11:15 35 08/14/16 10:45 97.1 2.0 Exam Intermittently awake but not following commands, no apparent distress Constitutional: frail Head: normocephalic Respiratory: other (Coarse breath sounds bilaterally, no wheezing or rhonchi) Cardiovascular: other (S1-S2 heard), regular rate and rhythm, systolic murmur Gastrointestinal: bowel sounds, non-tender, other (No guarding), soft Extremities: other (No edema or cyanosis) Results Result Diagram: 08/14/16 1010 08/14/16 1010 Results 24 hrs Laboratory Tests Test 08/14/16 10:10 08/14/16 10:50 08/14/16 11:43 08/14/16 12:10 Alanine Aminotransferase (ALT/SGPT) 12 L Albumin 2.5 L Albumin/Globulin Ratio 0.69 Alkaline Phosphatase 146 H Anion Gap 20 H Aspartate Amino Transf (AST/SGOT) 17 Band Neutrophils % 1.0 Basophils # Basophils % Blood Urea Nitrogen 35 H Calcium Level 8.2 L Carbon Dioxide Level 29 Chloride Level 109 Creatinine 1.06 H Differential Comment MANUAL DIFF Direct Bilirubin 0.00 Globulin 3.60 H Glucose Level 72 Hematocrit 33.7 L Hemoglobin 9.9 L Indirect Bilirubin 0.5 Lymphocytes # 3.4 H Lymphocytes % 6.0 L Mean Corpuscular Hemoglobin 26.7 L Mean Corpuscular Hemoglobin Concent 29.4 L Mean Corpuscular Volume 90.8 Mean Platelet Volume 10.3 # Metamyelocytes # 0.6 Metamyelocytes % 1.0 H Monocytes # 1.1 H Monocytes % 2.0 Neutrophils # 51.0 H Neutrophils % 90.0 H Platelet Count 227 Potassium Level 4.9 Red Blood Count 3.71 L Red Cell Distribution Width 18.7 H Sodium Level 153 H Total Bilirubin 0.5 Total Protein 6.1 Troponin I < 0.010 White Blood Count 56.7 #H Arterial Blood HCO3 30.5 H Arterial Blood Base Excess 5.1 H Arterial Blood Oxygen Saturation 87.6 L Nader Test ACCEPTAB Arterial Blood Gas Puncture Site Right Radial Arterial Blood Carboxyhemoglobin 0.1 Arterial Blood Date Drawn 08/14/2016 11:01:30 AM Arterial Blood Methemoglobin 0.4 Arterial Blood pCO2 (Temp correct) 48.9 H Arterial Blood pH (Temp corrected) 7.413 Arterial Blood pO2 (Temp corrected) 59.1 L Blood Gas A-a O2 Differential 75.6 H Blood Gas Modality NASAL CANNULA Blood Gas Notified Time 08/14/2016 11:10:57 AM Blood Gas Notified Whom TM Blood Gas Specimen Source Blood arterial Blood Gas Temperature 37.0 FiO2 27.0 Oxyhemoglobin Percent 87.2 L Total Hemoglobin 10.6 L Activated Partial Thromboplast Time 51.5 H INR International Normalized Ratio 1.99 Prothrombin Time 22.8 #H Prothrombin Time Ratio 1.8 Lactic Acid Level 2.6 H Medications Medications Current Medications Hydralazine HCl (Apresoline) 10 mg Q4H PRN IV SBP>170; Start 08/14/16 at 15:30 IV Flush (NS 10 ml) 10 ml PRN PRN IV IV PROTOCOL; Start 08/14/16 at 16:00 Procedures Procedures ECG demonstrates sinus rhythm, normal QRS duration, no significant ischemic STT wave abnormalities Artemio Tipton DO Aug 14, 2016 16:37
[2016-08-14] MEDS ORDERED: VANCOMYCIN IV PER PHARMACY XX SCH (17:00)
--- NOTE | 2016-08-14 18:37 | HP ---
DATE OF ADMISSION: 08/14/2016 HISTORY OF PRESENT ILLNESS: The patient is a 65-year-old female known to me from previous admission . The patient is a 65-year-old fragile female with left lung squamous cell carcinoma with metastasi s not resectable. Patient with history of chronic obstructive pulmonary disease and acute on chroni c diastolic congestive heart failure, hypertension, chronic urinary retention, and multiple pressure ulcers, status post debridement at previous admissions, history of depression, hypothyroidism, anem ia of chronic disease, chronic pain syndrome, and tobacco dependence. Patient was not a candidate f or chemotherapy with previous evaluation by oncology, with recommendation for possible radiation kayla atment when the patient is more stable. The patient was recuperating at a group home facility. The patient was brought to emergency room for complaints of weakness, poor appetite, and shortness of breath. The patient has a poor intake by mouth for the last 10 days. The patient developed cou gh and hypoxia. The patient underwent a chest x-ray with impression of 6.2 x 6.8 cm left lower lobe well-circumscribed opacity, which may reflect loculated pleural effusion or mass, which has not sig nificantly changed compared to previous study, diffuse interstitial alveolar airspace disease with s mall focal airspace opacity in the right infrahilar region. This may represent pulmonary edema or i nfectious process. The patient's white blood cells were found to be elevated to 56,700 on admission . Lactic acid was elevated at 2.6, and patient had labile blood pressure; however, no fever. The p atient is started on broad spectrum antibiotics, and patient will be admitted for further evaluation and management. The patient was also given breathing treatment. PAST MEDICAL HISTORY: Per HPI. PAST SURGICAL HISTORY: Status post wound debridement, status post back surgery, details not availab le. FAMILY HISTORY: Noncontributory. SOCIAL HISTORY: Patient is a resident of group home facility. Patient is a long-term smoker, continues to smoke. No alcohol. Patient denies any alcohol and denies any illicit drug use. ALLERGIES: PATIENT IS ALLERGIC TO PENICILLIN, ASPIRIN, AND IBUPROFEN. MEDICATIONS: On admission: 1. Xanax. 2. Vitamin C. 3. Lipitor. 4. Plavix. 5. Diazepam. 6. Colace. 7. Cardura. 8. Cymbalta. 9. Pepcid. 10. Ferrous sulfate. 11. Gabapentin. 12. DuoNeb. 13. . 14. Synthroid. 15. Cozaar 16. Lopressor. 17. MS Contin 18. Protonix. 19. Ambien. REVIEW OF SYSTEMS: A 12-point review of systems is negative unless what is mentioned in the HPI. N o report of nausea, vomiting, diarrhea. PHYSICAL ASSESSMENT: GENERAL: Fragile, elderly female, currently on supplemental oxygen, is lethargic but arousable. VITAL SIGNS: Temperature is 97.1, pulse is 88, blood pressure is 87/70, respiratory rate 29, oxygen saturation is 91% on CPAP 35%. HEENT: Head is atraumatic, normocephalic. Pupils equal, round, reactive to light and accommodation . Oral mucosa is pink and moist. NECK: Supple, no thyromegaly. Trachea is midline. CHEST: Patient has diminished breath sounds with diminished air entry bilaterally. CARDIOVASCULAR: Normal S1, S2. No murmurs, gallops, clicks, rubs noted. ABDOMEN: Flat, nondistended, nontender. Bowel sounds present. There is no guarding, no rebound te nderness. EXTREMITIES: There is no edema, clubbing, cyanosis. Pulses equal bilaterally 2+. SKIN: Patient has multiple pressure ulcers including sacral wound. NEUROLOGICAL: The patient is lethargic but easily arousable, alert to name and situation. No focal deficits noted. LABORATORY DATA: On admission, CBC: White blood cells 57.7, hemoglobin 9.9, hematocrit 33.7, plate lets 227. Chemistry: Sodium is 153, potassium 4.9, chloride 109, carbon dioxide 29, anion gap 20, BUN is 35, creatinine 1.06, glucose 72, lactic acid 2.6, calcium 8.2. AST is 17, ALT is 12, alkalin e phosphatase is 146. Troponin less than 0.01. Albumin is 2.5. PT is 22.8, INR is 1.99, APTT is 5 1.5. ASSESSMENT AND PLAN: 1. Acute hypoxic respiratory failure secondary to pneumonia, chronic obstructive pulmonary disease, and malignancy. Dr. Neri is following in pulmonary consultation. Continue bronchodilators, pulmo nary toilet, and BiPAP. Continue broad spectrum antibiotics. 2. Health care acquired pneumonia. Patient is currently on vancomycin and aztreonam. Will ask Dr. Coleman to see patient in infectious disease consultation. 3. Severe sepsis with leukocytosis. Will obtain urine and blood cultures. 3. Chronic obstructive pulmonary disease. 4. Multiple decubitus ulcers with history of debridement. 5. Chronic urinary retention. 6. Left lung squamous cell carcinoma. 7. Anemia of chronic disease complex congestive heart failure. Dr. Tipton will be following the javid engle in cardiology consultation. Will resume patient's home medication. 8. Coagulopathy. Will continue Pepcid for peptic ulcer disease prophylaxis and sequential compress ion device for deep venous thrombosis prophylaxis. Further recommendations based on clinical course. Plan of care discussed with Dr. Lobato. Dictated By: REBECCA ISLAS AGENCY TRAINER for DRE LOBATO MD SR/NTS Conf#: [id number] DID#: [id number]
--- NOTE | 2016-08-14 20:01 | CONS ---
DATE OF ADMISSION: 08/14/2016 DATE OF CONSULTATION: 08/14/2016 TYPE OF CONSULTATION: Infectious disease. REASON FOR CONSULTATION: Antibiotic management. HISTORY OF PRESENT ILLNESS: Gumaro García is a 65-year-old female who is brought to the emergency r [facility] with COPD and shortness of breath. The patient was brought in by ambulance. She has cough and hypoxemia. Her past problems include: 1. Hypertension. 2. Hypothyroidism. 3. Hyperlipidemia. 4. ALLERGY TO PENICILLIN. 5. History of debridement of wounds. 6. Chronic obstructive pulmonary disease. 7. History of lung carcinoma. 8. Asthma. 9. Noncompliance. On admission, her white count was 56.7, H and H of 9.9 and 33.7, platelet count 227,000. Sodium was 153, indicative of dehydration. BUN and creatinine 35/1.06. The patient was started on vancomycin and aztreonam. Blood cultures and urine cultures were ordered. A chest x-ray showed diffuse inter stitial and alveolar airspace disease with more focal airspace opacity in the right infrahilar regio n. This may represent pulmonary edema or infectious process. A 6.2 x 6.8 cm left lower lobe well circumscribed opacity may reflect loculated pleural effusion of mass. This is not significantly jan nged compared to prior study. CT correlation is recommended. The patient had a PICC line inserted into the left. The patient was seen in the emergency room by Dr. Femi Neri, pulmonary. She notes that she was admitted with hypoxemia. ABG is borderline on BiPAP. No CO2 retention. Likely under lying malignancy with recurrence. Severe sepsis with sacral ulcer, history of severe COPD, history of severe muscle wasting. The chest x-ray showed bilateral interstitial disease with left lower joaquin g mass, which has been fairly stable so far with severe leukocytosis. She is well known from [facility] where she had a long stay for recuperation. PAST MEDICAL HISTORY: History of severe end-stage renal, COPD, severe sacral decubitus ulcer, anemi a, and lung cancer. FAMILY HISTORY: Noncontributory. The patient is single. ALLERGIES: 1. PENICILLIN. 2. ASPIRIN. 3. IBUPROFEN. SOCIAL HISTORY: She has a history of smoking in the past. She is on BiPAP. PHYSICAL EXAMINATION: SKIN: Without generalized rash. HEENT: Within normal limits. NECK: Supple. LYMPH NODES: None palpable. CHEST: Decreased breath sounds at the bases. HEART: Without murmur or gallop. ABDOMEN: Soft, nontender without organosplenomegaly or masses. EXTREMITIES: Has severe muscle wasting involving the entire body. BACK: She has a stage III sacral decubitus ulcer. RECTAL AND GENITAL: Deferred. NEUROLOGIC: She moves all extremities. DISCUSSION: The patient also is status post right subdural hematoma and brain contusion after traum atic injury, status post acute encephalopathy, status post respiratory failure with pneumothorax, st atus post chest tube placement and removal, end-stage renal disease on hemodialysis to be followed b y Dr. Marcus, hypertension, hyperlipidemia, dysphagia, GERD, all in all, numerous medical problems to contend with. She was seen also by Dr. Tipton who noted sepsis, hypotension, diastolic congestive heart failure, pulmonary hypertension, preserved ejection fraction, tricuspid valve regurgitation, a nd lung cancer. She should be on vancomycin and imipenem. I will dictate my findings to Dr. Tamy aguilar and the consultants. Dictated By: JUAN JO MD, JD/SANDER Conf#: [id number] DID#: [id number] CC: DRE LOBATO MD;*EndCC*
[2016-08-14 20:39] LABS: AADO2 Arterial 102.9 mmHg (7.0-24.0); Allen Test ACCEPTAB; Arterial Base Excess -0.7 mmol/L (-3.0-3); Arterial COHb 0.3 % (0.0-3.0); Arterial Fraction of Oxyhgb 83.3 % (93.0-99.0); Arterial HCO3 25.1 mmol/L (22.0-26.0); Arterial MetHb 0.5 % (0.0-1.5); Arterial Total Hemglobin 10.3 g/dl (12.0-18.0); MODE NASAL CANNULA
[2016-08-15] VITALS (51 sets, daily range): BP systolic 82–122; BP diastolic 54–83; PULSE 74–124; RESP 14–26
[2016-08-15] MEDS: IMIPENEM-CILAST 250MG IV (PMX) 100 ML IVPB SCH ×3 (01:39→21:05)
[2016-08-15 04:43] LABS: ADD SCAN DIFF NO
[2016-08-15 04:53] LABS: ABNORMAL IP MESSAGE 1; HEMATOCRIT 31.1 % (37.0-47.0); HEMOGLOBIN 8.9 g/dl (12.0-16.0); MEAN CORPUSCULAR HEMOGLOBIN 26.5 pg (29.0-33.0); MEAN CORPUSCULAR HGB CONC 28.6 g/dl (32.0-37.0); MEAN CORPUSCULAR VOLUME 92.6 fl (82.0-101.0); MEAN PLATELET VOLUME 9.8 fl (7.4-10.4); PLATELET COUNT 240 10^3/UL (140-415); RED BLOOD COUNT 3.36 10^6/ul (4.20-5.40); RED CELL DISTRIBUTION WIDTH 18.9 % (11.5-14.5); WHITE BLOOD COUNT 54.4 10^3/ul (4.8-10.8)
[2016-08-15 05:09] LABS: ALBUMIN 2.1 g/dl (3.3-4.9); POTASSIUM 4.5 mmol/L (3.5-5.1)
[2016-08-15 05:12] LABS: ALBUMIN/GLOBULIN RATIO 0.61; BILIRUBIN,INDIRECT 0.2 mg/dl (0-1.1); BILIRUBIN,TOTAL 0.2 mg/dl (0.2-1.3); CREATININE 1.33 mg/dl (0.44-1.00); TOTAL PROTEIN 5.5 g/dl (6.1-8.1)
[2016-08-15 05:13] LABS: CALCIUM 7.8 mg/dl (8.4-10.2)
[2016-08-15 06:04] LABS: THYROID STIMULATING HORMONE 15.9 MIU/L (0.465-4.680)
[2016-08-15 07:53] LABS: LYMPHOCYTES # 1.6 10^3/ul (0.8-2.9); MONOCYTE # 1.6 10^3/ul (0.3-0.9); NEUTROPHIL # 49.5 10^3/ul (1.6-7.5)
--- NOTE | 2016-08-15 07:57 | RADRPT ---
PROCEDURE: XR Chest AP portable CLINICAL INDICATION: Evaluate lungs TECHNIQUE: An AP portable radiograph of the chest was submitted. COMPARISON: 08/14/2016 FINDINGS: Support Hardware: The left upper extremity PICC catheter is stable in positioning. Cardiovascular: The heart size remains normal and the aorta appears atherosclerotic. The peripheral pulmonary vasculature is unremarkable. Lung Snell: There has been no significant interval change with regards to the 5.2 cm mass-like dens ity projecting to the left lower lung zone. Patchy areas of vague infiltrate are again seen within the left lung base and within the right upper and lower lung zones. Pleural Spaces: No pneumothorax or pleural effusion is identified. Osseous Structures: The osseous elements remain osteoporotic. Soft Tissues: The soft tissues appear unremarkable. IMPRESSION: 1. No significant interval change with regards to the 5.2 cm a in diameter mass-like density projec ting to the left lower lung zone. This could represent a neoplasm or a dense round pneumonia. Patc hy areas of less defined infiltrate are also noted within the more inferior right lower lobe and wit hin the right upper and lower lung zones. 2. Atherosclerotic aorta 3. The left upper extremity PICC catheter is stable in positioning. Physician Zoe Date Time Electronically viewed and signed by Physician Zoe on 08/15/2016 07:56 /
[2016-08-15] MEDS ORDERED: VANCOMYCIN 1.5 GM in SOD CHLORIDE 0.9% 250 ML IVPB SCH (09:00)
[2016-08-15] MEDS ORDERED: NORepinephrine 8MG/250 ML (PMX 250 ML ONE (09:40)
[2016-08-15] MEDS: COLLAGENASE 30 GM TUBE TOP SCH (09:57)
[2016-08-15] MEDS ORDERED: NORepinephrine 8MG/250 ML (PMX 250 ML IV SCH (10:00)
--- NOTE | 2016-08-15 10:04 | CONS ---
Date/Time of Note Date/Time of Note DATE: 08/15/16 TIME: 10:01 Assessment/Plan Assessment/Plan Additional Assessment/Plan Chest x-ray was reviewed from today which is again showing a left lower lobe mass with opacities in the right upper and right lower lobe. Possibly indicative of metastatic disease. Assessment recommendations; 1. Patient admitted with severe sepsis which is combination of possibly pneumonia as well as sacral decubitus ulcers. There is significant elevation in white cell count. 2. History of lung cancer which likely has intrapulmonary metastasis. 3. Severe physical deconditioning and emaciation. 4. History of severe COPD. 5. Hypotension requiring Levophed administration. Patient has been adequately fluid resuscitated. Continue current supportive care. Prognosis is very poor. Consultation Date/Type/Reason Admit Date/Time Aug 14, 2016 at 10:56 Initial Consult Date 08/14/16 Type of Consultation: Pulmonary/critical care 24 HR Interval Summary Free Text/Dictation Patient condition is slightly improved. She is off BiPAP now. Maintain on simple Ventimask. Getting adequate O2 saturation. Vision however remains mildly hypotensive requiring Levophed for blood pressure maintenance. General examination; elderly lady, appears quite emaciated. Currently in no distress. Awake and alert. Exam/Review of Systems Vital Signs Vitals Vital Signs Date Time Temp Pulse Resp B/P Pulse Ox O2 Delivery O2 Flow Rate FiO2 08/15/16 09:00 74 15 86/63 Mask 08/15/16 08:00 97.7 96 15.0 08/15/16 07:40 50 Intake and Output 08/14/16 08/14/16 08/15/16 15:00 23:00 07:00 Intake Total 2300 ml 100 ml Output Total 100 ml Balance 2300 ml 0 ml Exam HEENT examination; supple neck, no JVD. No lymphadenopathy. Midline trachea. Patient has a multiple carious teeth. Pupils are small bilaterally. No neck masses. Chest examination; diminished breath sounds throughout. S1-S2 audible, no murmurs. Regular rhythm. Abdomen examination; scaphoid, nontender. No organomegaly. Bowel sounds audible. Extremity examination; no peripheral edema. Patient has multiple ecchymosis involving all 4 extremities. Back examination reveals multiple sacral ulcers. PERFORATING MACHINE OPERATOR examination; patient is awake and follows simple commands moves all 4 extremities. Results Result Diagram: 08/15/16 0400 08/15/16 0400 Results 24 hrs Laboratory Tests Test 08/14/16 10:10 08/14/16 10:50 08/14/16 11:43 08/14/16 12:10 Alanine Aminotransferase (ALT/SGPT) 12 L Albumin 2.5 L Albumin/Globulin Ratio 0.69 Alkaline Phosphatase 146 H Anion Gap 20 H Aspartate Amino Transf (AST/SGOT) 17 Band Neutrophils % 1.0 Basophils # Basophils % Blood Urea Nitrogen 35 H Calcium Level 8.2 L Carbon Dioxide Level 29 Chloride Level 109 Creatinine 1.06 H Differential Comment MANUAL DIFF Direct Bilirubin 0.00 Globulin 3.60 H Glucose Level 72 Hematocrit 33.7 L Hemoglobin 9.9 L Indirect Bilirubin 0.5 Lymphocytes # 3.4 H Lymphocytes % 6.0 L Mean Corpuscular Hemoglobin 26.7 L Mean Corpuscular Hemoglobin Concent 29.4 L Mean Corpuscular Volume 90.8 Mean Platelet Volume 10.3 # Metamyelocytes # 0.6 Metamyelocytes % 1.0 H Monocytes # 1.1 H Monocytes % 2.0 Neutrophils # 51.0 H Neutrophils % 90.0 H Platelet Count 227 Potassium Level 4.9 Red Blood Count 3.71 L Red Cell Distribution Width 18.7 H Sodium Level 153 H Total Bilirubin 0.5 Total Protein 6.1 Troponin I < 0.010 White Blood Count 56.7 #H Arterial Blood HCO3 30.5 H Arterial Blood Base Excess 5.1 H Arterial Blood Oxygen Saturation 87.6 L Nader Test ACCEPTAB Arterial Blood Gas Puncture Site Right Radial Arterial Blood Carboxyhemoglobin 0.1 Arterial Blood Date Drawn 08/14/2016 11:01:30 AM Arterial Blood Methemoglobin 0.4 Arterial Blood pCO2 (Temp correct) 48.9 H Arterial Blood pH (Temp corrected) 7.413 Arterial Blood pO2 (Temp corrected) 59.1 L Blood Gas A-a O2 Differential 75.6 H Blood Gas Modality NASAL CANNULA Blood Gas Notified Time 08/14/2016 11:10:57 AM Blood Gas Notified Whom TM Blood Gas Specimen Source Blood arterial Blood Gas Temperature 37.0 FiO2 27.0 Oxyhemoglobin Percent 87.2 L Total Hemoglobin 10.6 L Activated Partial Thromboplast Time 51.5 H INR International Normalized Ratio 1.99 Prothrombin Time 22.8 #H Prothrombin Time Ratio 1.8 Lactic Acid Level 2.6 H Test 08/14/16 16:25 08/14/16 18:30 08/14/16 20:16 08/15/16 04:00 Lactic Acid Level 1.5 1.6 Arterial Blood HCO3 25.1 Arterial Blood Base Excess -0.7 Arterial Blood Oxygen Saturation 84.0 L Nader Test ACCEPTAB Arterial Blood Gas Puncture Site Right Radial Arterial Blood Carboxyhemoglobin 0.3 Arterial Blood Date Drawn 08/14/2016 8:35:12 PM Arterial Blood Methemoglobin 0.5 Arterial Blood pCO2 (Temp correct) 46.1 H Arterial Blood pH (Temp corrected) 7.353 Arterial Blood pO2 (Temp corrected) 56.8 L Blood Gas A-a O2 Differential 102.9 H Blood Gas Modality NASAL CANNULA Blood Gas Notified Time 08/14/2016 8:39:40 PM Blood Gas Notified Whom MG Blood Gas Specimen Source Blood arterial Blood Gas Temperature 37.0 FiO2 30.0 Oxyhemoglobin Percent 83.3 L Total Hemoglobin 10.3 L Alanine Aminotransferase (ALT/SGPT) 22 Albumin 2.1 L Albumin/Globulin Ratio 0.61 Alkaline Phosphatase 138 H Anion Gap 21 H Aspartate Amino Transf (AST/SGOT) 14 L Band Neutrophils % 3.0 Blood Urea Nitrogen 37 H Calcium Level 7.8 L Carbon Dioxide Level 26 Chloride Level 116 H Creatinine 1.33 H Direct Bilirubin 0.00 Eosinophils # Eosinophils % Globulin 3.40 H Glucose Level 76 Hematocrit 31.1 L Hemoglobin 8.9 L Indirect Bilirubin 0.2 Lymphocytes # 1.6 Lymphocytes % 3.0 L Mean Corpuscular Hemoglobin 26.5 L Mean Corpuscular Hemoglobin Concent 28.6 L Mean Corpuscular Volume 92.6 Mean Platelet Volume 9.8 Monocytes # 1.6 H Monocytes % 3.0 Neutrophils # 49.5 H Neutrophils % 91.0 H Platelet Count 240 Potassium Level 4.5 Prealbumin < 3.0 L Red Blood Count 3.36 L Red Cell Distribution Width 18.9 H Sodium Level 158 H Thyroid Stimulating Hormone (TSH) 15.900 H Total Bilirubin 0.2 Total Protein 5.5 L White Blood Count 54.4 H Medications Medications Current Medications Hydralazine HCl (Apresoline) 10 mg Q4H PRN IV SBP>170; Start 08/14/16 at 15:30 IV Flush 10 ml 10 ml PRN PRN IV IV PROTOCOL; Start 08/14/16 at 16:00 Imipenem/ Cilastatin Sodium (Primaxin 250 Mg/ 100 ml (Pmx)) 100 ml @ 100 mls/ hr Q12 IVPB Last administered on 08/15/16t 01:39; Admin Dose 100 MLS/HR; Start 08/14/16 at 21:00 Collagenase 1 applic 1 applic DAILY TOP ; Start 08/15/16 at 09:00 Norepinephrine (Levophed) 250 ml @ 1.875 mls/ hr TITRATE IV ; Start 08/15/16 at 10:00 REGINE BUCKLEY Aug 15, 2016 10:04
--- NOTE | 2016-08-15 11:49 | PN ---
DATE: 08/15/2016 SUBJECTIVE: Patient is lethargic on face mask; started on Levophed drip at 2 mcg per minute for low blood pressure. No fevers. VITAL SIGNS: Temperature 97.7, pulse 74, respirations 15, blood pressure 86/63, saturation 96% on 1 5% Ventimask. WBC 54.4, H and H 8.9 and 31, platelets 240, neutrophils 91, bands 3, lymphs 3, monos 3, BUN 37, cre atinine 1.33. Sodium 158, albumin 2.1. MICROBIOLOGY: Cultures are pending. DIAGNOSTICS: Chest x-ray revealed patchy areas of less-defined infiltrate within the right lower an d right upper lung lobes. INDWELLINGS: The patient had PICC line placed on admission on 08/14/2016 and George catheter. ANTIMICROBIALS: She is on IV vancomycin and imipenem. PHYSICAL EXAMINATION: GENERAL: This is a chronically ill-appearing, elderly woman who is lying comfortably in bed. HEENT: Head atraumatic, normocephalic. Sclerae anicteric. Buccal mucosa dry. NECK: Supple. CHEST: Rise symmetrical. Breath sounds diminished to bases. HEART: S1, S2. ABDOMEN: Soft, bowel sounds present. EXTREMITIES: No cyanosis. SKIN: Multiple decubs. ASSESSMENT: 1. Severe sepsis with shock. 2. Acute respiratory failure, possibly aspiration event versus healthcare-associated pneumonia. 3. Possible Clostridium difficile colitis. 4. Multiple chronic wounds. 5. Cachexia. 6. History of recurrent urinary tract infections. 7 Lung cancer. 8. Anemia. 9. Acute renal failure. PLAN: We are going to send urine and blood cultures. Add empiric Flagyl and antifungal coverage. Continue on current antimicrobials. Follow up pulmonary, cardiology recommendations. Dictated By: RUBIN MAYEN GEOPHYSICAL ENGINEER for JUAN COLLIER/SANDER Conf#: [id number] DID#: [id number]
--- NOTE | 2016-08-15 12:16 | PN ---
Date/Time of Note Date/Time of Note DATE: 08/15/16 TIME: 12:10 Assessment/Plan VTE Prophylaxis VTE Prophylaxis Intervention: SCD's Lines/Catheters IV Catheter Type (from [facility]): PICC Line Central line still needed: Yes Urinary Cath still in place: Yes Reason Cath still needed: urinary retention Assessment/Plan Chief Complaint/Hosp Course ASSESSMENT AND PLAN: - Acute hypoxic respiratory failure secondary to pneumonia, chronic obstructive pulmonary disease, and malignancy. Dr. Neri is following in pulmonary consultation. Continue bronchodilators, pulmonary toilet. Continue broad spectrum antibiotics. - Health care acquired pneumonia. Dr. Coleman to see patient in infectious disease consultation. Continue antibiotics per ID recommendations. - Severe sepsis with shock. Continue pressors and ICU care. - Chronic obstructive pulmonary disease. Continue bronchodilators. - Multiple decubitus ulcers with history of debridement. Continue wound care. - Chronic urinary retention. - Left lung squamous cell carcinoma. - Anemia of chronic disease. - Congestive heart failure. Dr. Tipton is following the patient in cardiology consultation. - Coagulopathy. Continue Pepcid for peptic ulcer disease prophylaxis and sequential compression device for deep venous thrombosis prophylaxis. Further recommendations based on clinical course. Plan of care discussed with Dr. Dozier. Problems: Subjective 24 Hr Interval Summary Free Text/Dictation Patient is currently lethargic but arousable moans in response to questions, patient is on levo fed for hemodynamic support, and oxygen via facemask. Exam/Review of Systems Vital Signs Vitals Vital Signs Date Time Temp Pulse Resp B/P Pulse Ox O2 Delivery O2 Flow Rate FiO2 08/15/16 11:30 77 19 112/68 Mask 08/15/16 11:00 97.9 08/15/16 08:00 96 15.0 08/15/16 07:40 50 Intake and Output 08/14/16 08/14/16 08/15/16 15:00 23:00 07:00 Intake Total 2300 ml 100 ml Output Total 100 ml Balance 2300 ml 0 ml Exam PHYSICAL ASSESSMENT: GENERAL: Fragile, elderly female, currently on supplemental oxygen, is lethargic but arousable. HEENT: Head is atraumatic, normocephalic. Pupils equal, round, reactive to light and accommodation. Oral mucosa is pink and moist. NECK: Supple, no thyromegaly. Trachea is midline. CHEST: Patient has diminished breath sounds with diminished air entry bilaterally. CARDIOVASCULAR: Normal S1, S2. No murmurs, gallops, clicks, rubs noted. ABDOMEN: Flat, nondistended, nontender. Bowel sounds present. There is no guarding, no rebound tenderness. EXTREMITIES: There is no edema, clubbing, cyanosis. Pulses equal bilaterally 2 +. SKIN: Patient has multiple pressure ulcers including sacral wound. NEUROLOGICAL: The patient is lethargic but arousable. Results Result Diagram: 08/15/16 04008/15/16 0400 Results 24 hrs Laboratory Tests Test 08/14/16 16:25 08/14/16 18:30 08/14/16 20:16 08/15/16 04:00 Lactic Acid Level 1.5 1.6 Arterial Blood HCO3 25.1 Arterial Blood Base Excess -0.7 Arterial Blood Oxygen Saturation 84.0 L Nader Test ACCEPTAB Arterial Blood Gas Puncture Site Right Radial Arterial Blood Carboxyhemoglobin 0.3 Arterial Blood Date Drawn 08/14/2016 8:35:12 PM Arterial Blood Methemoglobin 0.5 Arterial Blood pCO2 (Temp correct) 46.1 H Arterial Blood pH (Temp corrected) 7.353 Arterial Blood pO2 (Temp corrected) 56.8 L Blood Gas A-a O2 Differential 102.9 H Blood Gas Modality NASAL CANNULA Blood Gas Notified Time 08/14/2016 8:39:40 PM Blood Gas Notified Whom MG Blood Gas Specimen Source Blood arterial Blood Gas Temperature 37.0 FiO2 30.0 Oxyhemoglobin Percent 83.3 L Total Hemoglobin 10.3 L Alanine Aminotransferase (ALT/SGPT) 22 Albumin 2.1 L Albumin/Globulin Ratio 0.61 Alkaline Phosphatase 138 H Anion Gap 21 H Aspartate Amino Transf (AST/SGOT) 14 L Band Neutrophils % 3.0 Blood Urea Nitrogen 37 H Calcium Level 7.8 L Carbon Dioxide Level 26 Chloride Level 116 H Creatinine 1.33 H Direct Bilirubin 0.00 Eosinophils # Eosinophils % Globulin 3.40 H Glucose Level 76 Hematocrit 31.1 L Hemoglobin 8.9 L Indirect Bilirubin 0.2 Lymphocytes # 1.6 Lymphocytes % 3.0 L Mean Corpuscular Hemoglobin 26.5 L Mean Corpuscular Hemoglobin Concent 28.6 L Mean Corpuscular Volume 92.6 Mean Platelet Volume 9.8 Monocytes # 1.6 H Monocytes % 3.0 Neutrophils # 49.5 H Neutrophils % 91.0 H Platelet Count 240 Potassium Level 4.5 Prealbumin < 3.0 L Red Blood Count 3.36 L Red Cell Distribution Width 18.9 H Sodium Level 158 H Thyroid Stimulating Hormone (TSH) 15.900 H Total Bilirubin 0.2 Total Protein 5.5 L White Blood Count 54.4 H Medications Medications Current Medications Hydralazine HCl (Apresoline) 10 mg Q4H PRN IV SBP>170; Start 08/14/16 at 15:30 IV Flush 10 ml 10 ml PRN PRN IV IV PROTOCOL; Start 08/14/16 at 16:00 Imipenem/ Cilastatin Sodium (Primaxin 250 Mg/ 100 ml (Pmx)) 100 ml @ 100 mls/ hr Q12 IVPB Last administered on 08/15/16 10:56; Admin Dose 100 MLS/HR; Start 08/14/16 at 21:00 Collagenase 1 applic 1 applic DAILY TOP Last administered on 08/15/16 09:57; Admin Dose 1 APPLIC; Start 08/15/16 at 09:00 Norepinephrine 250 ml @ 1.875 mls/ hr TITRATE IV Last administered on 10:00; Admin Dose 1.875 MLS/HR; Start 08/15/16 at 10:00 Metronidazole 100 ml @ 100 mls/hr Q8 IVPB ; Start 08/15/16 at 14:00 Fluconazole/ Sodium Chloride (Diflucan 100 Mg/ NS (Pmx)) 50 ml @ 50 mls/hr Q24H IVPB ; Start 08/15/16 at 12:00 REBECCA ISLAS Aug 15, 2016 12:16
[2016-08-15] MEDS: FLUCONAZOLE 100 MG/NS (PMX) 50 ML IVPB SCH (12:37)
--- NOTE | 2016-08-15 12:46 | CONS ---
Date/Time of Note Date/Time of Note DATE: 08/15/16 TIME: 12:43 Assessment/Plan Assessment/Plan Additional Assessment/Plan Septic shock Hypotension Diastolic congestive heart failure Pulmonary hypertension Preserved ejection fraction Tricuspid valve regurgitation Lung cancer -Patient started on IV pressor, would give IV hydration in addition. Antibiotics as per primary team. Hold any antihypertensives at the current time. Consultation Date/Type/Reason Admit Date/Time Aug 14, 2016 at 10:56 Initial Consult Date 08/14/16 Type of Consultation: cv 24 HR Interval Summary Free Text/Dictation Patient seen and examined. Denies chest pain Exam/Review of Systems Vital Signs Vitals Vital Signs Date Time Temp Pulse Resp B/P Pulse Ox O2 Delivery O2 Flow Rate FiO2 08/15/16 12:00 76 08/15/16 11:30 19 112/68 Mask 08/15/16 11:00 97.9 08/15/16 08:00 96 15.0 08/15/16 07:40 50 Intake and Output 08/14/16 08/14/16 08/15/16 15:00 23:00 07:00 Intake Total 2300 ml 100 ml Output Total 100 ml Balance 2300 ml 0 ml Exam Sleeping but arousable, follows occasional commands Constitutional: frail Head: normocephalic Respiratory: other (Coarse breath sounds bilaterally, no wheezing) Cardiovascular: other (S1-S2 heard), regular rate and rhythm Gastrointestinal: bowel sounds, non-tender, other (No guarding), soft Extremities: other (No edema) Results Result Diagram: 08/15/16 0400 08/15/16 0400 Results 24 hrs Laboratory Tests Test 08/14/16 16:25 08/14/16 18:30 08/14/16 20:16 08/15/16 04:00 Lactic Acid Level 1.5 1.6 Arterial Blood HCO3 25.1 Arterial Blood Base Excess -0.7 Arterial Blood Oxygen Saturation 84.0 L Nader Test ACCEPTAB Arterial Blood Gas Puncture Site Right Radial Arterial Blood Carboxyhemoglobin 0.3 Arterial Blood Date Drawn 08/14/2016 8:35:12 PM Arterial Blood Methemoglobin 0.5 Arterial Blood pCO2 (Temp correct) 46.1 H Arterial Blood pH (Temp corrected) 7.353 Arterial Blood pO2 (Temp corrected) 56.8 L Blood Gas A-a O2 Differential 102.9 H Blood Gas Modality NASAL CANNULA Blood Gas Notified Time 08/14/2016 8:39:40 PM Blood Gas Notified Whom MG Blood Gas Specimen Source Blood arterial Blood Gas Temperature 37.0 FiO2 30.0 Oxyhemoglobin Percent 83.3 L Total Hemoglobin 10.3 L Alanine Aminotransferase (ALT/SGPT) 22 Albumin 2.1 L Albumin/Globulin Ratio 0.61 Alkaline Phosphatase 138 H Anion Gap 21 H Aspartate Amino Transf (AST/SGOT) 14 L Band Neutrophils % 3.0 Blood Urea Nitrogen 37 H Calcium Level 7.8 L Carbon Dioxide Level 26 Chloride Level 116 H Creatinine 1.33 H Direct Bilirubin 0.00 Eosinophils # Eosinophils % Globulin 3.40 H Glucose Level 76 Hematocrit 31.1 L Hemoglobin 8.9 L Indirect Bilirubin 0.2 Lymphocytes # 1.6 Lymphocytes % 3.0 L Mean Corpuscular Hemoglobin 26.5 L Mean Corpuscular Hemoglobin Concent 28.6 L Mean Corpuscular Volume 92.6 Mean Platelet Volume 9.8 Monocytes # 1.6 H Monocytes % 3.0 Neutrophils # 49.5 H Neutrophils % 91.0 H Platelet Count 240 Potassium Level 4.5 Prealbumin < 3.0 L Red Blood Count 3.36 L Red Cell Distribution Width 18.9 H Sodium Level 158 H Thyroid Stimulating Hormone (TSH) 15.900 H Total Bilirubin 0.2 Total Protein 5.5 L White Blood Count 54.4 H Medications Medications Current Medications Hydralazine HCl (Apresoline) 10 mg Q4H PRN IV SBP>170; Start 08/14/16 at 15:30 IV Flush 10 ml 10 ml PRN PRN IV IV PROTOCOL; Start 08/14/16 at 16:00 Imipenem/ Cilastatin Sodium (Primaxin 250 Mg/ 100 ml (Pmx)) 100 ml @ 100 mls/ hr Q12 IVPB Last administered on 08/15/16 10:56; Admin Dose 100 MLS/HR; Start 08/14/16 at 21:00 Collagenase 1 applic 1 applic DAILY TOP Last administered on 08/15/16 09:57; Admin Dose 1 APPLIC; Start 08/15/16 at 09:00 Norepinephrine 250 ml @ 1.875 mls/ hr TITRATE IV Last administered on 10:00; Admin Dose 1.875 MLS/HR; Start 08/15/16 at 10:00 Metronidazole 100 ml @ 100 mls/hr Q8 IVPB ; Start 08/15/16 at 14:00 Fluconazole/ Sodium Chloride (Diflucan 100 Mg/ NS (Pmx)) 50 ml @ 50 mls/hr Q24H IVPB Last administered on 08/15/16t 12:37; Admin Dose 50 MLS/HR; Start at 12:00 Sodium Hypochlorite (Dakin'S (1/4 Strength)) 1 applic BID IRR ; Start 08/15/16 at 13:30 Artemio Tipton DO Aug 15, 2016 12:46
[2016-08-15] MEDS ORDERED: SOD CHLORIDE 0.45% 1,000 ML IV SCH (13:00)
[2016-08-15] MEDS: metroNIDAZOLE 500 MG/NS (PMX) 100 ML IVPB SCH ×2 (14:40→21:05)
[2016-08-15 15:42] LABS: ADD UMIC YES; URINE BILIRUBIN (Dip) 1+ (NEGATIVE); URINE BLOOD (Dip) 1+ (NEGATIVE); URINE COLOR YELLOW (YELLOW); URINE GLUCOSE (Dip) NEGATIVE (NEGATIVE); URINE KETONES (Dip) TRACE (NEGATIVE); URINE LEUKOCYTE ESTERASE (Dip) 2+ (NEGATIVE); URINE NITRITE (Dip) NEGATIVE (NEGATIVE); URINE TOTAL PROTEIN (Dip) TRACE (NEGATIVE); URINE UROBILINOGEN (Dip) 1.0 E.U./dL (0.1-1.0)
[2016-08-15 16:29] LABS: BACTERIA,URINE MODERATE; SQUAMOUS EPITHELIAL CELL,UR FEW
[2016-08-15 16:40] LABS: ICTOTEST NEGATIVE (NEGATIVE)
[2016-08-15] MEDS: SODIUM HYPOCHLORITE 0.125% 473 ML BTL IRR SCH ×2 (17:27→21:02)
[2016-08-15] MEDS: VANCOMYCIN 750 MG in SOD CHLORIDE 0.9% 150 ML IVPB SCH (19:04)
[2016-08-16] VITALS (71 sets, daily range): BP systolic 69–132; BP diastolic 50–89; PULSE 88–122; RESP 14–27
[2016-08-16] MEDS: metroNIDAZOLE 500 MG/NS (PMX) 100 ML IVPB SCH ×3 (05:08→21:06)
[2016-08-16] MEDS: LEVOTHYROXINE 125 MCG TAB PO SCH (05:09)
[2016-08-16 05:22] LABS: ADD SCAN DIFF NO
[2016-08-16 05:28] LABS: ABNORMAL IP MESSAGE 1; HEMATOCRIT 29.1 % (37.0-47.0); HEMOGLOBIN 8.1 g/dl (12.0-16.0); MEAN CORPUSCULAR HEMOGLOBIN 25.8 pg (29.0-33.0); MEAN CORPUSCULAR HGB CONC 27.8 g/dl (32.0-37.0); MEAN CORPUSCULAR VOLUME 92.7 fl (82.0-101.0); MEAN PLATELET VOLUME 9.9 fl (7.4-10.4); PLATELET COUNT 177 10^3/UL (140-415); RED BLOOD COUNT 3.14 10^6/ul (4.20-5.40); RED CELL DISTRIBUTION WIDTH 19.5 % (11.5-14.5)
[2016-08-16 05:45] LABS: POTASSIUM 4.4 mmol/L (3.5-5.1)
[2016-08-16 05:48] LABS: CREATININE 1.52 mg/dl (0.44-1.00)
[2016-08-16 05:49] LABS: CALCIUM 7.8 mg/dl (8.4-10.2)
[2016-08-16 07:57] LABS: EOSINOPHILS # 0.5 10^3/ul (0.0-0.5); LYMPHOCYTES # 4.8 10^3/ul (0.8-2.9); MONOCYTE # 1.4 10^3/ul (0.3-0.9); NEUTROPHIL # 39.8 10^3/ul (1.6-7.5)
[2016-08-16 07:58] LABS: PLATELET ESTIMATE PLT APPEAR ADEQUATE
[2016-08-16] MEDS: SODIUM HYPOCHLORITE 0.125% 473 ML BTL IRR SCH ×2 (09:42→21:05)
[2016-08-16] MEDS: COLLAGENASE 30 GM TUBE TOP SCH (09:43)
[2016-08-16] MEDS: IMIPENEM-CILAST 250MG IV (PMX) 100 ML IVPB SCH ×2 (09:51→21:05)
[2016-08-16] MEDS ORDERED: SOD CHLORIDE 0.9% 100 ML ONE (10:33)
--- NOTE | 2016-08-16 10:44 | CONS ---
Date/Time of Note Date/Time of Note DATE: 08/16/16 TIME: 10:37 Assessment/Plan Assessment/Plan Additional Assessment/Plan Assessment and recommendations; 1. Patient admitted with severe sepsis due to sacral decubitus ulcers. 2. Likely metastatic lung cancer. 3. Severe hyponatremia. Patient having very poor oral intake. 4. Hypotension. Currently on low-dose Levophed drip. 5. Mild renal insufficiency. 6. History of severe COPD. Continue current treatment. Pass an NG tube. Start the patient on tube feeding as well as free water 300 mL every 6 hours for correction of hypernatremia. Continue current antibiotics. Prognosis is poor. Consultation Date/Type/Reason Admit Date/Time Aug 14, 2016 at 10:56 Initial Consult Date 08/14/16 Type of Consultation: Pulmonary/critical care 24 HR Interval Summary Free Text/Dictation Patient condition is improving. She is completely awake and alert now. Does complain of shortness of breath which has been a chronic complaint. Patient off pressor support. General examination; elderly lady currently in no distress awake and alert. Exam/Review of Systems Vital Signs Vitals Vital Signs Date Time Temp Pulse Resp B/P Pulse Ox O2 Delivery O2 Flow Rate FiO2 08/16/16 09:15 120 17 108/69 96 Mask 08/16/16 09:00 15.0 08/16/16 07:45 98.4 08/16/16 04:19 50 Intake and Output 08/15/16 08/15/16 08/16/16 15:00 23:00 07:00 Intake Total 222.60 ml 306 ml 803.75 ml Output Total 61 ml 97 ml 155 ml Balance 161.60 ml 209 ml 648.75 ml Exam HEENT examination; supple neck, no JVD. No lymphadenopathy. Midline trachea. Patient multiple carious teeth. Pupils are midsize and reactive to light. Chest examination; diminished breath sound bilaterally. S1-S2 audible, no murmurs. Regular rhythm. Abdomen examination; scaphoid, no organomegaly. Bowel sounds audible. Nontender. Extremity examination; no peripheral edema. Patient has severe muscle wasting involving the entire body. Back examination; patient does have multiple sacral decubitus ulcers. 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 Results Result Diagram: 08/16/16 0500 08/16/16 0500 Results 24 hrs Laboratory Tests Test 08/15/16 13:30 08/16/16 05:00 Urine Bacteria MODERATE Urine Bilirubin 1+ H Urine Clarity SLIGHTLY CLOUDY Urine Color YELLOW Urine Glucose NEGATIVE Urine Hemoglobin 1+ H Urine Hyaline Casts FEW Urine Ictotest NEGATIVE Urine Ketones TRACE H Urine Leukocyte Esterase 2+ H Urine Microscopic RBC 5-10 Urine Microscopic WBC >200 Urine Nitrite NEGATIVE Urine Specific [place] 1.015 Urine Squamous Epithelial Cells FEW Urine Total Protein TRACE Urine Urobilinogen 1.0 E.U./dL Urine pH 6.0 Anion Gap 18 H Band Neutrophils % 3.0 Blood Urea Nitrogen 44 H Calcium Level 7.8 L Carbon Dioxide Level 25 Chloride Level 119 H Creatinine 1.52 H Eosinophils # 0.5 Eosinophils % 1.0 Glucose Level 73 Hematocrit 29.1 L Hemoglobin 8.1 L Lymphocytes # 4.8 H Lymphocytes % 10.0 L Mean Corpuscular Hemoglobin 25.8 L Mean Corpuscular Hemoglobin Concent 27.8 L Mean Corpuscular Volume 92.7 Mean Platelet Volume 9.9 Monocytes # 1.4 H Monocytes % 3.0 Neutrophils # 39.8 H Neutrophils % 83.0 H Platelet Count 177 # Platelet Estimate PLT APPEAR ADEQUATE Potassium Level 4.4 Red Blood Count 3.14 L Red Cell Distribution Width 19.5 H Sodium Level 158 H White Blood Count 48.0 H Medications Medications Current Medications Hydralazine HCl (Apresoline) 10 mg Q4H PRN IV SBP>170; Start 08/14/16 at 15:30 IV Flush 10 ml 10 ml PRN PRN IV IV PROTOCOL; Start 08/14/16 at 16:00 Imipenem/ Cilastatin Sodium (Primaxin 250 Mg/ 100 ml (Pmx)) 100 ml @ 100 mls/ hr Q12 IVPB Last administered on 08/16/16 09:51; Admin Dose 100 MLS/HR; Start 08/14/16 at 21:00 Collagenase 1 applic 1 applic DAILY TOP Last administered on 08/16/16 09:43; Admin Dose 1 APPLIC; Start 08/15/16 at 09:00 Norepinephrine 250 ml @ 1.875 mls/ hr TITRATE IV Last administered on 10:00; Admin Dose 1.875 MLS/HR; Start 08/15/16 at 10:00 Metronidazole 100 ml @ 100 mls/hr Q8 IVPB Last administered on 08/16/16 05:08 ; Admin Dose 100 MLS/HR; Start 08/15/16 at 14:00 Fluconazole/ Sodium Chloride (Diflucan 100 Mg/ NS (Pmx)) 50 ml @ 50 mls/hr Q24H IVPB Last administered on 08/15/16 12:37; Admin Dose 50 MLS/HR; Start at 12:00 Sodium Hypochlorite 1 applic 1 applic BID IRR Last administered on 08/16/16 09: 42; Admin Dose 1 APPLIC; Start 08/15/16 at 13:30 Vancomycin HCl/ Sodium Chloride (Vancocin/NS) 150 ml @ 75 mls/hr Q24H IVPB Last administered on 08/15/16 19:04; Admin Dose 75 MLS/HR; Start 08/15/16 at 17 :00 REGINE BUCKLEY Aug 16, 2016 10:44
--- NOTE | 2016-08-16 13:24 | CONS ---
Date/Time of Note Date/Time of Note DATE: 08/16/16 TIME: 13:22 Assessment/Plan Assessment/Plan Additional Assessment/Plan Septic shock Hypotension Diastolic congestive heart failure Pulmonary hypertension Preserved ejection fraction Tricuspid valve regurgitation Lung cancer -Titrate IV pressor to maintain SBP greater than 90 and/or map above 60. Patient started on free water via NG tube. Continue to hold any antihypertensives. Consultation Date/Type/Reason Admit Date/Time Aug 14, 2016 at 10:56 Initial Consult Date 08/14/16 Type of Consultation: cv 24 HR Interval Summary Free Text/Dictation Patient seen and examined, denies chest pain Exam/Review of Systems Vital Signs Vitals Vital Signs Date Time Temp Pulse Resp B/P Pulse Ox O2 Delivery O2 Flow Rate FiO2 08/16/16 11:30 99 22 93/64 Nasal Cannula 08/16/16 11:00 98.3 5.0 08/16/16 10:30 100 08/16/16 04:19 50 Intake and Output 08/15/16 08/15/16 08/16/16 15:00 23:00 07:00 Intake Total 222.60 ml 306 ml 803.75 ml Output Total 61 ml 97 ml 155 ml Balance 161.60 ml 209 ml 648.75 ml Exam Sleeping but arousable, no apparent distress Constitutional: frail Head: normocephalic Neck: supple Respiratory: other (Coarse breath sounds bilaterally, no wheezing) Cardiovascular: other (S1-S2 heard), regular rate and rhythm Gastrointestinal: bowel sounds, non-tender, soft Extremities: other (No edema) Results Result Diagram: 08/16/16 0500 08/16/16 0500 Results 24 hrs Laboratory Tests Test 08/15/16 13:30 08/16/16 05:00 Urine Bacteria MODERATE Urine Bilirubin 1+ H Urine Clarity SLIGHTLY CLOUDY Urine Color YELLOW Urine Glucose NEGATIVE Urine Hemoglobin 1+ H Urine Hyaline Casts FEW Urine Ictotest NEGATIVE Urine Ketones TRACE H Urine Leukocyte Esterase 2+ H Urine Microscopic RBC 5-10 Urine Microscopic WBC >200 Urine Nitrite NEGATIVE Urine Specific [place] 1.015 Urine Squamous Epithelial Cells FEW Urine Total Protein TRACE Urine Urobilinogen 1.0 E.U./dL Urine pH 6.0 Anion Gap 18 H Band Neutrophils % 3.0 Blood Urea Nitrogen 44 H Calcium Level 7.8 L Carbon Dioxide Level 25 Chloride Level 119 H Creatinine 1.52 H Eosinophils # 0.5 Eosinophils % 1.0 Glucose Level 73 Hematocrit 29.1 L Hemoglobin 8.1 L Lymphocytes # 4.8 H Lymphocytes % 10.0 L Mean Corpuscular Hemoglobin 25.8 L Mean Corpuscular Hemoglobin Concent 27.8 L Mean Corpuscular Volume 92.7 Mean Platelet Volume 9.9 Monocytes # 1.4 H Monocytes % 3.0 Neutrophils # 39.8 H Neutrophils % 83.0 H Platelet Count 177 # Platelet Estimate PLT APPEAR ADEQUATE Potassium Level 4.4 Red Blood Count 3.14 L Red Cell Distribution Width 19.5 H Sodium Level 158 H White Blood Count 48.0 H Medications Medications Current Medications Hydralazine HCl (Apresoline) 10 mg Q4H PRN IV SBP>170; Start 08/14/16 at 15:30 IV Flush 10 ml 10 ml PRN PRN IV IV PROTOCOL; Start 08/14/16 at 16:00 Imipenem/ Cilastatin Sodium (Primaxin 250 Mg/ 100 ml (Pmx)) 100 ml @ 100 mls/ hr Q12 IVPB Last administered on 08/16/16 09:51; Admin Dose 100 MLS/HR; Start 08/14/16 at 21:00 Collagenase 1 applic 1 applic DAILY TOP Last administered on 08/16/16 09:43; Admin Dose 1 APPLIC; Start 08/15/16 at 09:00 Norepinephrine 250 ml @ 1.875 mls/ hr TITRATE IV Last administered on 10:00; Admin Dose 1.875 MLS/HR; Start 08/15/16 at 10:00 Metronidazole 100 ml @ 100 mls/hr Q8 IVPB Last administered on 08/16/16 05:08 ; Admin Dose 100 MLS/HR; Start 08/15/16 at 14:00 Fluconazole/ Sodium Chloride (Diflucan 100 Mg/ NS (Pmx)) 50 ml @ 50 mls/hr Q24H IVPB Last administered on 08/15/16 12:37; Admin Dose 50 MLS/HR; Start at 12:00 Sodium Hypochlorite 1 applic 1 applic BID IRR Last administered on 08/16/16 09: 42; Admin Dose 1 APPLIC; Start 08/15/16 at 13:30 Vancomycin HCl/ Sodium Chloride (Vancocin/NS) 150 ml @ 75 mls/hr Q24H IVPB Last administered on 08/15/16t 19:04; Admin Dose 75 MLS/HR; Start 08/15/16 at 17 :00 Artemio Tipton DO Aug 16, 2016 13:24
[2016-08-16] MEDS: FLUCONAZOLE 100 MG/NS (PMX) 50 ML IVPB SCH (14:18)
--- NOTE | 2016-08-16 14:47 | PN ---
Date/Time of Note Date/Time of Note DATE: 08/16/16 TIME: 14:43 Assessment/Plan VTE Prophylaxis VTE Prophylaxis Intervention: SCD's Lines/Catheters IV Catheter Type (from [facility]): PICC Line Central line still needed: Yes Urinary Cath still in place: Yes Reason Cath still needed: urinary retention Assessment/Plan Chief Complaint/Hosp Course ASSESSMENT AND PLAN: - Acute hypoxic respiratory failure secondary to pneumonia, chronic obstructive pulmonary disease, and malignancy. Dr. Neri is following in pulmonary consultation. Continue bronchodilators, pulmonary toilet. Continue broad spectrum antibiotics. - Health care acquired pneumonia. Dr. Coleman to see patient in infectious disease consultation. Continue antibiotics per ID recommendations. - Severe sepsis with shock. Continue pressors and ICU care. - C-diff colitis. continue Vanco and Flagyl. - Hypernatremia, continue free water via GT. - Chronic obstructive pulmonary disease. Continue bronchodilators. - Multiple decubitus ulcers with history of debridement. Continue wound care. - Chronic urinary retention. - Left lung squamous cell carcinoma. - Anemia of chronic disease. - Congestive heart failure. Dr. Tipton is following the patient in cardiology consultation. - Coagulopathy. Continue Pepcid for peptic ulcer disease prophylaxis and sequential compression device for deep venous thrombosis prophylaxis. Further recommendations based on clinical course. Plan of care discussed with Dr. Dozier. Problems: Subjective 24 Hr Interval Summary Free Text/Dictation Patient is afebrile, continues on supplemental oxygen. Exam/Review of Systems Vital Signs Vitals Vital Signs Date Time Temp Pulse Resp B/P Pulse Ox O2 Delivery O2 Flow Rate FiO2 08/16/16 13:30 98 17 102/73 92 Nasal Cannula 08/16/16 13:00 5.0 08/16/16 11:00 98.3 08/16/16 04:19 50 Intake and Output 08/15/16 08/15/16 08/16/16 15:00 23:00 07:00 Intake Total 222.60 ml 306 ml 803.75 ml Output Total 61 ml 97 ml 155 ml Balance 161.60 ml 209 ml 648.75 ml Exam PHYSICAL ASSESSMENT: GENERAL: Fragile, elderly female, currently on supplemental oxygen, is lethargic but arousable. HEENT: Head is atraumatic, normocephalic. Pupils equal, round, reactive to light and accommodation. Oral mucosa is pink and moist. NECK: Supple, no thyromegaly. Trachea is midline. CHEST: Patient has diminished breath sounds with diminished air entry bilaterally. CARDIOVASCULAR: Normal S1, S2. No murmurs, gallops, clicks, rubs noted. ABDOMEN: Flat, nondistended, nontender. Bowel sounds present. There is no guarding, no rebound tenderness. EXTREMITIES: There is no edema, clubbing, cyanosis. Pulses equal bilaterally 2 +. SKIN: Patient has multiple pressure ulcers including sacral wound. NEUROLOGICAL: The patient is lethargic but arousable. Results Result Diagram: 08/16/16 0500 08/16/16 0500 Results 24 hrs Laboratory Tests Test 08/16/16 05:00 Anion Gap 18 H Band Neutrophils % 3.0 Blood Urea Nitrogen 44 H Calcium Level 7.8 L Carbon Dioxide Level 25 Chloride Level 119 H Creatinine 1.52 H Eosinophils # 0.5 Eosinophils % 1.0 Glucose Level 73 Hematocrit 29.1 L Hemoglobin 8.1 L Lymphocytes # 4.8 H Lymphocytes % 10.0 L Mean Corpuscular Hemoglobin 25.8 L Mean Corpuscular Hemoglobin Concent 27.8 L Mean Corpuscular Volume 92.7 Mean Platelet Volume 9.9 Monocytes # 1.4 H Monocytes % 3.0 Neutrophils # 39.8 H Neutrophils % 83.0 H Platelet Count 177 # Platelet Estimate PLT APPEAR ADEQUATE Potassium Level 4.4 Red Blood Count 3.14 L Red Cell Distribution Width 19.5 H Sodium Level 158 H White Blood Count 48.0 H Medications Medications Current Medications Hydralazine HCl (Apresoline) 10 mg Q4H PRN IV SBP>170; Start 08/14/16 at 15:30 IV Flush 10 ml 10 ml PRN PRN IV IV PROTOCOL; Start 08/14/16 at 16:00 Imipenem/ Cilastatin Sodium (Primaxin 250 Mg/ 100 ml (Pmx)) 100 ml @ 100 mls/ hr Q12 IVPB Last administered on 08/16/16 09:51; Admin Dose 100 MLS/HR; Start 08/14/16 at 21:00 Collagenase 1 applic 1 applic DAILY TOP Last administered on 08/16/16 09:43; Admin Dose 1 APPLIC; Start 08/15/16 at 09:00 Metronidazole 100 ml @ 100 mls/hr Q8 IVPB Last administered on 08/16/16 14:19 ; Admin Dose 100 MLS/HR; Start 08/15/16 at 14:00 Fluconazole/ Sodium Chloride (Diflucan 100 Mg/ NS (Pmx)) 50 ml @ 50 mls/hr Q24H IVPB Last administered on 08/16/16 14:18; Admin Dose 50 MLS/HR; Start 08/15/16 at 12:00 Sodium Hypochlorite 1 applic 1 applic BID IRR Last administered on 08/16/16 09: 42; Admin Dose 1 APPLIC; Start 08/15/16 at 13:30 Vancomycin HCl/ Sodium Chloride (Vancocin/NS) 150 ml @ 75 mls/hr Q24H IVPB Last administered on 08/15/16 19:04; Admin Dose 75 MLS/HR; Start 08/15/16 at 17 :00 Vancomycin HCl 250 mg 250 mg Q6 PO ; Start 08/16/16 at 18:00 Norepinephrine/ Dextrose (Levophed/D5W) 500 ml @ 0 mls/hr TITRATE IV ; Start 08/16/16 at 15:00 Morphine Sulfate (morphine) 1 mg Q3H PRN IV PAIN; Start 08/16/16 at 15:00 REBECCA ISLAS Aug 16, 2016 14:47
--- NOTE | 2016-08-16 15:00 | PN ---
DATE: 08/16/2016 SUBJECTIVE: No acute events. The patient is lethargic on low-dose pressors. No fevers. Tolerates tube feeding. VITAL SIGNS: Temperature 98.3, pulse 98, respirations 17, blood pressure 102/72, saturation 92% on nasal cannula. LABORATORY DATA: WBC today 48, H and H 8.1 and 29.1, platelets 177, neutrophils 83, bands 3, lymphs 10, monos 3. Sodium 158, BUN 44, creatinine 1.52. MICROBIOLOGY: Blood cultures remain negative since admission. Urine culture negative. Stool for C . diff came back positive. INDWELLINGS: NG tube, left upper extremity PICC line placed on 08/14/2016, George catheter. ANTIMICROBIALS: The patient is on: 1. Vancomycin. 2. Flagyl. 3. Fluconazole. 4. Imipenem. PHYSICAL EXAMINATION: GENERAL: This is a fragile, chronically ill-appearing, elderly woman who is in no distress. HEENT: Head atraumatic, normocephalic. Sclerae anicteric. Buccal mucosa dry. NECK: Supple. CHEST: Rise symmetrical. Breath sounds diminished. HEART: S1, S2. ABDOMEN: Soft, bowel sounds present. EXTREMITIES: Wasted without cyanosis. ASSESSMENT: 1. Severe sepsis with shock. 2. Clostridium difficile colitis. 3. Acute respiratory failure, possibly postobstructive pneumonia, possibly aspiration event. 4. Severe chronic obstructive pulmonary disease exacerbation. 5. Lung cancer. 6. Urinary tract infection per urinalysis with preliminary urine cultures negative. 7. Multiple decubiti. 8. Severe cachexia. 9. Congestive heart failure. PLAN: The patient remains hemodynamically unstable, white blood cell count tracing down. We are go ing to add oral vancomycin to the regimen. Continue her on current antimicrobials. She is being se en by multiple consultants. Dictated By: RUBIN MAYEN SOFTWARE DESIGN MANAGER for JUAN JO MD NI/NTS Conf#: [id number] DID#: [id number]
[2016-08-16] MEDS: VANCOMYCIN 750 MG in SOD CHLORIDE 0.9% 150 ML IVPB SCH (17:46)
[2016-08-16] MEDS: VANCOMYCIN HCL 250 MG/5ML POSYG PO SCH ×2 (17:46→23:32)
[2016-08-17] VITALS (24 sets, daily range): BP systolic 85–122; BP diastolic 66–85; PULSE 96–145; RESP 14–21
[2016-08-17] MEDS: morphine 2 MG INJ IV PRN ×3 (02:39→21:04)
[2016-08-17] MEDS: metroNIDAZOLE 500 MG/NS (PMX) 100 ML IVPB SCH ×3 (05:06→21:05)
[2016-08-17] MEDS: VANCOMYCIN HCL 250 MG/5ML POSYG PO SCH ×4 (05:06→23:36)
[2016-08-17 05:52] LABS: ADD SCAN DIFF NO
[2016-08-17 06:12] LABS: ABNORMAL IP MESSAGE 1; BASOPHIL # 0.1 10^3/ul (0.0-0.1); BASOPHILS % 0.2 % (0.0-2.0); EOSINOPHILS # 0.1 10^3/ul (0.0-0.5); EOSINOPHILS % 0.4 % (0.0-7.0); HEMATOCRIT 26.5 % (37.0-47.0); HEMOGLOBIN 7.7 g/dl (12.0-16.0); LYMPHOCYTES # 1.9 10^3/ul (0.8-2.9); LYMPHOCYTES % 6.1 % (15.0-51.0); MEAN CORPUSCULAR HEMOGLOBIN 26.6 pg (29.0-33.0); MEAN CORPUSCULAR HGB CONC 29.1 g/dl (32.0-37.0); MEAN CORPUSCULAR VOLUME 91.7 fl (82.0-101.0); MONOCYTE # 1.2 10^3/ul (0.3-0.9); MONOCYTES % 3.8 % (0.0-11.0); NEUTROPHIL # 25.9 10^3/ul (1.6-7.5); NUCLEATED RED BLOOD CELLS # 0.1 10^3/ul (0.0-0.0); NUCLEATED RED BLOOD CELLS% 0.2 /100WBC (0.0-0.0); PLATELET COUNT 137 10^3/UL (140-415); RED BLOOD COUNT 2.89 10^6/ul (4.20-5.40); RED CELL DISTRIBUTION WIDTH 19.9 % (11.5-14.5); WHITE BLOOD COUNT 30.8 10^3/ul (4.8-10.8)
[2016-08-17 06:27] LABS: POTASSIUM 3.5 mmol/L (3.5-5.1)
[2016-08-17 06:29] LABS: CREATININE 1.02 mg/dl (0.44-1.00)
[2016-08-17 06:30] LABS: CALCIUM 7.8 mg/dl (8.4-10.2)
[2016-08-17] MEDS: LEVOTHYROXINE 125 MCG TAB PO SCH (06:30)
[2016-08-17] MEDS: SODIUM HYPOCHLORITE 0.125% 473 ML BTL IRR SCH ×2 (08:24→21:03)
[2016-08-17] MEDS: IMIPENEM-CILAST 250MG IV (PMX) 100 ML IVPB SCH (08:24)
[2016-08-17] MEDS: COLLAGENASE 30 GM TUBE TOP SCH (08:24)
--- NOTE | 2016-08-17 10:04 | PN ---
DATE: 08/17/2016 SUBJECTIVE: Patient Ricky remains stable post-extubation. She is currently on 4 L nasal cannula, s omewhat confused but hemodynamically stable. PHYSICAL EXAMINATION: VITAL SIGNS: Temperature 98, pulse is 109, blood pressure 109/71, O2 saturation 96% on 2 L nasal ca nnula. NECK: Supple, no JVD or lymphadenopathy. CARDIAC: S1, S2. No added sounds or murmurs. CHEST: Diminished air entry bilaterally. ABDOMEN: Soft, nontender. No guarding or rebound. EXTREMITIES: No cyanosis, clubbing, edema. NEUROLOGIC: Grossly intact. LABORATORY DATA: White count 30.8, hemoglobin 7.7, platelets of 137. Chemistry: BUN 37, creatinin e 1.02. INR was 1.99. IMPRESSION: 1. Status post recurrent hypoxemic and hypercapnic respiratory failure, now safely extubated. 2. History of lung cancer. 3. Persistent leukocytosis. 4. Dementia with encephalopathy. 5. Hypernatremia. PLAN: The patient will require: 1. Continued aspiration precautions. 2. Supplemental O2. 3. Correction of hypernatremia with free water. 4. DVT and GI prophylaxis. 5. Transfer to telemetry floor. 6. Consider addressing code status again. Dictated By: CASSIE MORALEZ/SANDER Conf#: [id number] DID#: [id number]
--- NOTE | 2016-08-17 10:30 | PN ---
Date/Time of Note Date/Time of Note DATE: 08/17/16 TIME: 10:26 Assessment/Plan VTE Prophylaxis VTE Prophylaxis Intervention: SCD's Lines/Catheters IV Catheter Type (from [facility] PICC Line Central line still needed: Yes Urinary Cath still in place: Yes Reason Cath still needed: urinary retention Assessment/Plan Assessment/Plan - Acute hypoxic respiratory failure secondary to pneumonia, chronic obstructive pulmonary disease, and malignancy. - per Dr. Neri in pulmonary consultation. Continue bronchodilators, pulmonary toilet. Continue broad spectrum antibiotics. - Health care acquired pneumonia. - per Dr. Coleman in infectious disease consultation. Continue antibiotics per ID recommendations. - Severe sepsis with shock. Continue pressors and ICU care. - C-diff colitis. continue Vanco and Flagyl. - Hypernatremia, continue free water via GT. - Chronic obstructive pulmonary disease. Continue bronchodilators. - Multiple decubitus ulcers with history of debridement. Continue wound care. - Chronic urinary retention. - Left lung squamous cell carcinoma. - Anemia of chronic disease. - Congestive heart failure. - per Dr. Tipton in cardiology consultation. - Coagulopathy. Hypernatremia- will appreciate nephrology consult- Dr bradshaw notified. Continue Pepcid for peptic ulcer disease prophylaxis and sequential compression device for deep venous thrombosis prophylaxis. Further recommendations based on clinical course. Total critical care time spent - 30 mins. Plan of care discussed with Dr. Dozier. Subjective 24 Hr Interval Summary Constitutional: requiring IVF, requiring O2 Eyes: no complaints ENT: no complaints Respiratory: no complaints Cardiovascular: no complaints Gastrointestinal: no complaints Genitourinary: no complaints Skin: other Exam/Review of Systems Vital Signs Vitals Vital Signs Date Time Temp Pulse Resp B/P Pulse Ox O2 Delivery O2 Flow Rate FiO2 08/17/16 08:15 Nasal Cannula 4.0 08/17/16 08:00 110 08/17/16 06:00 16 109/71 93 08/17/16 05:00 98.8 08/16/16 11:00 36 Intake and Output 08/16/16 08/16/16 08/17/16 15:00 23:00 07:00 Intake Total 418.55 ml 690 ml 620 ml Output Total 255 ml 365 ml 685 ml Balance 163.55 ml 325 ml -65 ml Exam Constitutional: alert, well developed Psych: nl mood/affect Head: atraumatic Eyes: EOMI, PERRL, nl sclera ENMT: nl external ears & nose Neck: non-tender Respiratory: clear to auscultation Cardiovascular: nl pulses Gastrointestinal: non-tender, other (NGT noted), soft Extremities: normal pulses Neurological: nl mental status, nl speech Skin: other Lymph: nontender Results Result Diagram: 08/17/16 0500 08/17/16 0500 Results 24 hrs Laboratory Tests Test 08/17/16 05:00 Anion Gap 19 H Basophils # 0.1 Basophils % 0.2 Blood Urea Nitrogen 37 H Calcium Level 7.8 L Carbon Dioxide Level 25 Chloride Level 114 H Creatinine 1.02 H Eosinophils # 0.1 Eosinophils % 0.4 Glucose Level 75 Hematocrit 26.5 L Hemoglobin 7.7 L Lymphocytes # 1.9 Lymphocytes % 6.1 L Mean Corpuscular Hemoglobin 26.6 L Mean Corpuscular Hemoglobin Concent 29.1 L Mean Corpuscular Volume 91.7 Mean Platelet Volume 10.0 Monocytes # 1.2 H Monocytes % 3.8 Neutrophils # 25.9 H Neutrophils % 84.0 H Nucleated Red Blood Cells # 0.1 H Nucleated Red Blood Cells % 0.2 H Platelet Count 137 #L Potassium Level 3.5 Red Blood Count 2.89 L Red Cell Distribution Width 19.9 H Sodium Level 154 H White Blood Count 30.8 #H Medications Medications Current Medications Hydralazine HCl (Apresoline) 10 mg Q4H PRN IV SBP>170; Start 08/14/16 at 15:30 IV Flush 10 ml 10 ml PRN PRN IV IV PROTOCOL; Start 08/14/16 at 16:00 Imipenem/ Cilastatin Sodium (Primaxin 250 Mg/ 100 ml (Pmx)) 100 ml @ 100 mls/ hr Q12 IVPB Last administered on 08/17/16 08:24; Admin Dose 100 MLS/HR; Start 08/14/16 at 21:00 Collagenase 1 applic 1 applic DAILY TOP Last administered on 08/17/16 08:24; Admin Dose 1 APPLIC; Start 08/15/16 at 09:00 Metronidazole 100 ml @ 100 mls/hr Q8 IVPB Last administered on 08/17/16 05:06 ; Admin Dose 100 MLS/HR; Start 08/15/16 at 14:00 Fluconazole/ Sodium Chloride (Diflucan 100 Mg/ NS (Pmx)) 50 ml @ 50 mls/hr Q24H IVPB Last administered on 08/16/16 14:18; Admin Dose 50 MLS/HR; Start 08/15/16 at 12:00 Sodium Hypochlorite 1 applic 1 applic BID IRR Last administered on 08/17/16 08: 24; Admin Dose 1 APPLIC; Start 08/15/16 at 13:30 Vancomycin HCl/ Sodium Chloride (Vancocin/NS) 150 ml @ 75 mls/hr Q24H IVPB Last administered on 08/16/16 17:46; Admin Dose 75 MLS/HR; Start 08/15/16 at 17: 00 Vancomycin HCl 250 mg 250 mg Q6 PO Last administered on 08/17/16 05:06; Admin Dose 250 MG; Start 08/16/16 at 18:00 Norepinephrine/ Dextrose (Levophed/D5W) 500 ml @ 0 mls/hr TITRATE IV ; Start 08/16/16 at 15:00 Morphine Sulfate (morphine) 1 mg Q3H PRN IV PAIN Last administered on 08/17/16 02:39; Admin Dose 1 MG; Start 08/16/16 at 15:00 Miscellaneous Information (*Rx Drug Level Order Reminder*) VANCO TR LEVEL PRIOR... ONCE ONCE XX ; Start 08/17/16 at 16:00; Stop 08/17/16 at 16:01 VIKASH CASTANEDA Aug 17, 2016 10:30
--- NOTE | 2016-08-17 11:31 | PN ---
DATE: 08/17/2016 SUBJECTIVE: The patient is off pressors, looks comfortable, sleeping. No fevers. VITAL SIGNS: Temperature 98.8, pulse 98, respirations 17, blood pressure 104/78, saturation 96% on nasal cannula. WBC 30.8, H and H 7.7 and 26.5, platelets 137,000, neutrophils 84. BUN 37, creatinine 1.02. MICROBIOLOGY: Blood and urine cultures have been negative. ANTIMICROBIALS: 1. Patient is on IV and p.o. vancomycin. 2. Flagyl. 3. Fluconazole. 4. Imipenem. INDWELLINGS: The patient had PICC line placed on 08/14/2016, George, and NG tube. PHYSICAL EXAMINATION: GENERAL: This is a cachectic, elderly woman who is in no distress. HEENT: Head atraumatic, normocephalic. Sclerae anicteric. Buccal mucosa dry. NECK: Supple. CHEST: Rise symmetrical. Breath sounds diminished to bases. HEART: S1, S2. ABDOMEN: Soft, bowel tones present. EXTREMITIES: Without cyanosis. SKIN: With multiple unstageable decubitus. ASSESSMENT: 1. Resolving sepsis, status post shock. 2. Clostridium difficile colitis. 3. Unstageable decubitus. 4. Acute respiratory failure, status post extubated. 5. History of lung cancer. 6. Chronic obstructive pulmonary disease. PLAN: The patient remains stable post-extubation. She is off pressors. We are going to keep her o n oral Flagyl and vancomycin, discontinue imipenem and IV vancomycin. Continue local wound care. C ontinue anti-aspiration measures. Dictated By: RUBIN MAYEN CUT OFF OPERATOR SCORER for JUAN COLLIER/SANDER Conf#: [id number] DID#: [id number]
[2016-08-17] MEDS: FLUCONAZOLE 100 MG/NS (PMX) 50 ML IVPB SCH (11:35)
--- NOTE | 2016-08-17 13:09 | CONS ---
Date/Time of Note Date/Time of Note DATE: 08/17/16 TIME: 13:08 Assessment/Plan Assessment/Plan Additional Assessment/Plan Septic shock Hypotension Diastolic congestive heart failure Pulmonary hypertension Preserved ejection fraction Tricuspid valve regurgitation Lung cancer -Titrate IV pressor to maintain SBP greater than 90 and/or map above 60. Continue to hold any antihypertensives. Antibiotics as per primary team Consultation Date/Type/Reason Admit Date/Time Aug 14, 2016 at 10:56 Initial Consult Date 08/14/16 Type of Consultation: cv 24 HR Interval Summary Free Text/Dictation Denies shortness of breath or chest pain Exam/Review of Systems Vital Signs Vitals Vital Signs Date Time Temp Pulse Resp B/P Pulse Ox O2 Delivery O2 Flow Rate FiO2 08/17/16 12:00 108 15 96/67 95 Nasal Cannula 4.0 08/17/16 08:00 98.0 08/16/16 11:00 36 Intake and Output 08/16/16 08/16/16 08/17/16 14:59 22:59 06:59 Intake Total 672.30 ml 650 ml 660 ml Output Total 220 ml 320 ml 665 ml Balance 452.30 ml 330 ml -5 ml Exam Sleeping but arousable, follows some commands, no apparent distress Head: normocephalic Neck: supple Respiratory: other (Coarse breath sounds bilaterally, no wheezing) Cardiovascular: other (S1-S2 heard), regular rate and rhythm Gastrointestinal: bowel sounds, non-tender, other (No guarding), soft Extremities: other (No cyanosis or edema) Results Result Diagram: 08/17/16 0500 08/17/16 0500 Results 24 hrs Laboratory Tests Test 08/17/16 05:00 Anion Gap 19 H Basophils # 0.1 Basophils % 0.2 Blood Urea Nitrogen 37 H Calcium Level 7.8 L Carbon Dioxide Level 25 Chloride Level 114 H Creatinine 1.02 H Eosinophils # 0.1 Eosinophils % 0.4 Glucose Level 75 Hematocrit 26.5 L Hemoglobin 7.7 L Lymphocytes # 1.9 Lymphocytes % 6.1 L Mean Corpuscular Hemoglobin 26.6 L Mean Corpuscular Hemoglobin Concent 29.1 L Mean Corpuscular Volume 91.7 Mean Platelet Volume 10.0 Monocytes # 1.2 H Monocytes % 3.8 Neutrophils # 25.9 H Neutrophils % 84.0 H Nucleated Red Blood Cells # 0.1 H Nucleated Red Blood Cells % 0.2 H Platelet Count 137 #L Potassium Level 3.5 Red Blood Count 2.89 L Red Cell Distribution Width 19.9 H Sodium Level 154 H White Blood Count 30.8 #H Medications Medications Current Medications Hydralazine HCl (Apresoline) 10 mg Q4H PRN IV SBP>170; Start 08/14/16 at 15:30 IV Flush (NS 10 ml) 10 ml PRN PRN IV IV PROTOCOL; Start 08/14/16 at 16:00 Collagenase 1 applic 1 applic DAILY TOP Last administered on 08/17/16 08:24; Admin Dose 1 APPLIC; Start 08/15/16 at 09:00 Metronidazole 100 ml @ 100 mls/hr Q8 IVPB Last administered on 08/17/16 05:06 ; Admin Dose 100 MLS/HR; Start 08/15/16 at 14:00 Fluconazole/ Sodium Chloride (Diflucan 100 Mg/ NS (Pmx)) 50 ml @ 50 mls/hr Q24H IVPB Last administered on 08/17/16 11:35; Admin Dose 50 MLS/HR; Start 08/15/16 at 12:00 Sodium Hypochlorite (Dakin'S (1/4 Strength)) 1 applic BID IRR Last administered on 08/17/16 08:24; Admin Dose 1 APPLIC; Start 08/15/16 at 13:30 Vancomycin HCl 250 mg 250 mg Q6 PO Last administered on 08/17/16 11:35; Admin Dose 250 MG; Start 08/16/16 at 18:00 Norepinephrine/ Dextrose (Levophed/D5W) 500 ml @ 0 mls/hr TITRATE IV ; Start 08/16/16 at 15:00 Morphine Sulfate (morphine) 1 mg Q3H PRN IV PAIN Last administered on 08/17/16 02:39; Admin Dose 1 MG; Start 08/16/16 at 15:00 Artemio Tipton DO Aug 17, 2016 13:09
[2016-08-17] MEDS ORDERED: D5W + KCL 20 MEQ 1,000 ML IV SCH (17:30)
--- NOTE | 2016-08-17 18:00 | CONS ---
DATE OF ADMISSION: 08/14/2016 DATE OF CONSULTATION: 08/17/2016 TYPE OF CONSULTATION: Nephrology. REFERRING PHYSICIAN: Bashir Dozier MD REASON FOR CONSULTATION: Acute kidney injury, acute hypernatremia with a sodium of 158. HISTORY OF PRESENT ILLNESS: This is a 65-year-old female with a past medical history of hypertension, hyperlipidemia, history of diastolic heart failure, tricuspid valve regurgitation, lung cancer, who presented with septic shock, hypotension. The patient has been admitted to the ICU. So far, hemodynamically stable with pressure support. She is tachycardic with a heart rate up to 113. The patient is saturating 97% on nasal cannula 4 liters. Renal has been consulted for acute kidney injury and acute hypernatremia. The drum puller, Dr. Artemio Tipton, has been following the patient and pulmonary, Dr. Bobo Lopez, has been following the patient. The patient remained stable post-extubation. She was on 4 liters nasal cannula, but somewhat confused, hemodynamically stable at the time of my evaluation. The patient's sodium has been around 158. The WBC count improved to 30.8, and nephrology has been consulted. REVIEW OF SYSTEMS: Unable to obtain from the patient since she is currently confused. PAST MEDICAL HISTORY: Notable for hypertension, hypothyroidism, history of diastolic heart failure, sacral decubitus. PAST SURGICAL HISTORY: Not available. SOCIAL HISTORY: Not available. FAMILY HISTORY: Nonsignificant. PHYSICAL EXAMINATION: VITAL SIGNS: Temperature 98.2, heart rate 113, respirations 20, blood pressure 112/79, saturation is 97% on 4 liters nasal cannula. GENERAL: Awake but confused intermittently. HEENT: Normal. Oropharynx clear. NECK: Jugular venous distention up to the mid neck. LUNGS: Decreased breath sounds at both lung bases, bibasilar rales present. HEART: S1, S2, tachycardia, no murmur. ABDOMEN: Soft, nontender, nondistended. Bowel sounds are present. EXTREMITIES: Mild to 1+ pitting edema. LABORATORY DATA/DIAGNOSTIC IMAGING: WBC 30.8, hemoglobin 7.7, platelet count is 137. Sodium is 154, potassium 3.5, chloride 114, bicarbonate 25, BUN 37, creatinine 1.52, glucose is 73, calcium 7.8. Prealbumin less than 3. TSH 15.9. Chest x-ray done which shows a lung mass with atherosclerotic aorta. Left upper extremity PICC line catheter. IMPRESSION: This is a 65-year-old female with: 1. Acute kidney injury on possible chronic kidney disease, likely secondary to cardiorenal syndrome in the setting of diastolic heart failure. 2. Acute hypernatremia with Na upto 158 2. Status post extubation for acute hypoxemic respiratory failure. 3. Septic shock. 4. Pulmonary hypertension with a preserved ejection fraction on echocardiogram. 5. History of possible lung cancer. PLAN: 1. Thank you, Dr. Dozier, for this consultation. The patient has acute hypernatremia with a sodium up to 158. I will give the patient very gentle IV fluids D5W with KCl 20 mEq to run at 50 mL/hour x1 liter. 2. I will send Urine Na, Urine OSmolarity, serum Osmolarity, Cortisol, TSH, Free T4 2. The patient is currently lethargic, so it is unable to give any p.o. free water at this point. Depending on the patient's course in the hospital, we will continue to follow and try to monitor her sodium. The creatinine has been trending with the treatment of IV antibiotics for sepsis and pneumonia. Once again, thank you, Dr. Dozier, for this consultation and I will continue to follow this patient. Total time spent in this patient's evaluation, making assessment and plan, updating the patient/family member and communicating with the nursing staff took more than 60 minutes. Dictated By: DIONNE SAUCEDA MD, KP/SANDER Conf#: [id number] DID#: [id number] SIMEON
[2016-08-18] VITALS (28 sets, daily range): BP systolic 100–123; BP diastolic 61–88; PULSE 104–175; RESP 16–24
[2016-08-18] MEDS: morphine 2 MG INJ IV PRN ×4 (00:48→18:16)
[2016-08-18 04:42] LABS: ADD SCAN DIFF NO
[2016-08-18 04:45] LABS: ABNORMAL IP MESSAGE 1; HEMATOCRIT 26.2 % (37.0-47.0); HEMOGLOBIN 7.5 g/dl (12.0-16.0); MEAN CORPUSCULAR HGB CONC 28.6 g/dl (32.0-37.0); MEAN CORPUSCULAR VOLUME 90.7 fl (82.0-101.0); MEAN PLATELET VOLUME 10.5 fl (7.4-10.4); PLATELET COUNT 140 10^3/UL (140-415); RED BLOOD COUNT 2.89 10^6/ul (4.20-5.40); RED CELL DISTRIBUTION WIDTH 19.8 % (11.5-14.5); WHITE BLOOD COUNT 29.2 10^3/ul (4.8-10.8)
[2016-08-18 05:05] LABS: ALBUMIN 1.8 g/dl (3.3-4.9)
[2016-08-18 05:06] LABS: POTASSIUM 3.3 mmol/L (3.5-5.1)
[2016-08-18 05:08] LABS: ALBUMIN/GLOBULIN RATIO 0.42; BILIRUBIN,INDIRECT 0.1 mg/dl (0-1.1); BILIRUBIN,TOTAL 0.1 mg/dl (0.2-1.3); CREATININE 0.77 mg/dl (0.44-1.00)
[2016-08-18 05:09] LABS: CALCIUM 8.1 mg/dl (8.4-10.2)
[2016-08-18 05:14] LABS: URIC ACID 6.6 mg/dl (3.1-7.9)
[2016-08-18] MEDS: metroNIDAZOLE 500 MG/NS (PMX) 100 ML IVPB SCH ×3 (06:11→21:13)
[2016-08-18] MEDS: VANCOMYCIN HCL 250 MG/5ML POSYG PO SCH ×3 (06:11→20:00)
[2016-08-18] MEDS: LEVOTHYROXINE 125 MCG TAB PO SCH (06:11)
[2016-08-18] MEDS ORDERED: POTASSIUM CHLORIDE (SR) 20 MEQ TAB PO STA (07:06)
[2016-08-18] MEDS ORDERED: POTASSIUM CHLORIDE 20 MEQ POWDER FOR ORAL SOLN NGT ONE (07:30)
[2016-08-18 07:36] LABS: AADO2 Arterial 161.3 mmHg (7.0-24.0); Allen Test ACCEPTAB; Arterial Base Excess 2.1 mmol/L (-3.0-3); Arterial COHb 0.3 % (0.0-3.0); Arterial Fraction of Oxyhgb 92.4 % (93.0-99.0); Arterial HCO3 26.6 mmol/L (22.0-26.0); Arterial MetHb 0.6 % (0.0-1.5); MODE NASAL CANNULA
[2016-08-18 07:55] LABS: EOSINOPHILS # 0.6 10^3/ul (0.0-0.5); LYMPHOCYTES # 1.5 10^3/ul (0.8-2.9); MONOCYTE # 0.6 10^3/ul (0.3-0.9); MYELOCYTES # 0.3; NEUTROPHIL # 24.5 10^3/ul (1.6-7.5)
[2016-08-18 07:56] LABS: HYPOCHROMASIA FEW
--- NOTE | 2016-08-18 09:31 | RADRPT ---
PROCEDURE: XR Chest. CLINICAL INDICATION: Congestive heart failure and hypoxia. TECHNIQUE: Chest x-ray, single view. COMPARISON: 08/15/2016. FINDINGS: The cardiac silhouette is slightly magnified. Patchy parenchymal opacification is present and incre ased. There is a lingular mass, which is unchanged from recent examinations. An enteric tube exten ds below the diaphragm into the stomach. Skeletal structures and upper abdomen are unremarkable. IMPRESSION: Diffuse patchy airspace disease, increased. Lingular mass, unchanged from recent examinations. RPTAT: DD .Yajaira Carmona MD, MD Date Time Electronically viewed and signed by .Yajaira Carmona MD, MD on 08/18/2016 09:31 .T/
[2016-08-18] MEDS: SODIUM HYPOCHLORITE 0.125% 473 ML BTL IRR SCH ×2 (09:48→21:00)
[2016-08-18] MEDS: COLLAGENASE 30 GM TUBE TOP SCH (09:48)
--- NOTE | 2016-08-18 10:24 | CONS ---
Date/Time of Note Date/Time of Note DATE: 08/18/16 TIME: 10:22 Assessment/Plan Assessment/Plan Additional Assessment/Plan Septic shock Hypotension, improved Diastolic congestive heart failure Pulmonary hypertension Preserved ejection fraction Tricuspid valve regurgitation Lung cancer -Patient's blood pressure improving. Sodium rising, consider free water via NG tube. Hold any antihypertensive medications at the current time. Supplement potassium to maintain above 4.0 and magnesium above 2.0. Consultation Date/Type/Reason Admit Date/Time Aug 14, 2016 at 10:56 Initial Consult Date 08/14/16 Type of Consultation: cv 24 HR Interval Summary Free Text/Dictation Patient denies chest pain or shortness of breath. Exam/Review of Systems Vital Signs Vitals Vital Signs Date Time Temp Pulse Resp B/P Pulse Ox O2 Delivery O2 Flow Rate FiO2 08/18/16 08:00 Nasal Cannula 6.0 08/18/16 06:00 110 18 123/88 97 08/18/16 04:00 98.3 08/16/16 11:00 36 Intake and Output 08/17/16 08/17/16 08/18/16 15:00 23:00 07:00 Intake Total 720 ml 1305 ml 1495 ml Output Total 700 ml 675 ml 900 ml Balance 20 ml 630 ml 595 ml Exam Awake, following commands, more receptive today, no apparent distress Constitutional: frail Head: normocephalic Neck: supple Respiratory: other (Coarse breath sounds bilaterally, no wheezing or rhonchi) Cardiovascular: other (S1-S2 heard), regular rate and rhythm Gastrointestinal: bowel sounds, non-tender, other (No guarding), soft Extremities: other (No edema or cyanosis) Results Result Diagram: 08/18/16 0345 08/18/16 0345 Results 24 hrs Laboratory Tests Test 08/17/16 23:10 08/18/16 03:45 08/18/16 07:00 Urine Osmolality 371 Urine Random Sodium 88 Alanine Aminotransferase (ALT/SGPT) 17 Albumin 1.8 L Albumin/Globulin Ratio 0.42 Alkaline Phosphatase 126 H Anion Gap 14 Aspartate Amino Transf (AST/SGOT) 11 L B-Type Natriuretic Peptide 7770 H Band Neutrophils % 2.0 Blood Urea Nitrogen 28 H Calcium Level 8.1 L Carbon Dioxide Level 29 Chloride Level 116 H Creatine Kinase 26 Creatinine 0.77 Direct Bilirubin 0.00 Eosinophils # 0.6 H Eosinophils % 2.0 Globulin 4.20 H Glucose Level 119 # Hematocrit 26.2 L Hemoglobin 7.5 L Hypochromasia FEW Indirect Bilirubin 0.1 Lymphocytes # 1.5 Lymphocytes % 5.0 L Mean Corpuscular Hemoglobin 26.0 L Mean Corpuscular Hemoglobin Concent 28.6 L Mean Corpuscular Volume 90.7 Mean Platelet Volume 10.5 H Metamyelocytes # 0.6 Metamyelocytes % 2.0 H Monocytes # 0.6 Monocytes % 2.0 Myelocytes # 0.3 Myelocytes % 1.0 H Neutrophils # 24.5 H Neutrophils % 84.0 H Osmolality 316 H Platelet Count 140 Potassium Level 3.3 L Promyelocytes # 0.6 Promyelocytes % 2.0 H Red Blood Count 2.89 L Red Cell Distribution Width 19.8 H Sodium Level 156 H Total Bilirubin 0.1 L Total Protein 6.0 L Uric Acid 6.6 White Blood Count 29.2 H Arterial Blood HCO3 26.6 H Arterial Blood Base Excess 2.1 Arterial Blood Oxygen Saturation 93.2 L Nader Test ACCEPTAB Arterial Blood Gas Puncture Site Right Radial Arterial Blood Carboxyhemoglobin 0.3 Arterial Blood Date Drawn 08/18/2016 7:25:28 AM Arterial Blood Methemoglobin 0.6 Arterial Blood pCO2 (Temp correct) 40.9 Arterial Blood pH (Temp corrected) 7.431 Arterial Blood pO2 (Temp corrected) 69.6 L Blood Gas A-a O2 Differential 161.3 H Blood Gas Modality NASAL CANNULA Blood Gas Notified Time 08/18/2016 7:36:00 AM Blood Gas Notified Whom TM Blood Gas Specimen Source Blood arterial Blood Gas Temperature 37.0 FiO2 39.0 Oxyhemoglobin Percent 92.4 L Total Hemoglobin 9.0 L Medications Medications Current Medications Hydralazine HCl (Apresoline) 10 mg Q4H PRN IV SBP>170; Start 08/14/16 at 15:30 IV Flush (NS 10 ml) 10 ml PRN PRN IV IV PROTOCOL; Start 08/14/16 at 16:00 Collagenase 1 applic 1 applic DAILY TOP Last administered on 08/18/16 09:48; Admin Dose 1 APPLIC; Start 08/15/16 at 09:00 Metronidazole 100 ml @ 100 mls/hr Q8 IVPB Last administered on 08/18/16 06:11 ; Admin Dose 100 MLS/HR; Start 08/15/16 at 14:00 Fluconazole/ Sodium Chloride (Diflucan 100 Mg/ NS (Pmx)) 50 ml @ 50 mls/hr Q24H IVPB Last administered on 08/17/16 11:35; Admin Dose 50 MLS/HR; Start 08/15/16 at 12:00 Sodium Hypochlorite (Dakin'S (1/4 Strength)) 1 applic BID IRR Last administered on 08/18/16 09:48; Admin Dose 1 APPLIC; Start 08/15/16 at 13:30 Vancomycin HCl 250 mg 250 mg Q6 PO Last administered on 08/18/16 06:11; Admin Dose 250 MG; Start 08/16/16 at 18:00 Norepinephrine/ Dextrose (Levophed/D5W) 500 ml @ 0 mls/hr TITRATE IV ; Start 08/16/16 at 15:00 Morphine Sulfate (morphine) 1 mg Q3H PRN IV PAIN Last administered on 08/18/16 03:52; Admin Dose 1 MG; Start 08/16/16 at 15:00 Artemio Tipton DO Aug 18, 2016 10:24
[2016-08-18] MEDS ORDERED: ERTAPENEM SODIUM 1 GM in SOD CHLORIDE 0.9% 100 ML IVPB SCH (10:30)
--- NOTE | 2016-08-18 10:32 | PN ---
DATE: 08/18/2016 SUBJECTIVE: Patient Gumaro García remains stable this morning on 6 L nasal cannula. Mild confusion , but no respiratory distress. PHYSICAL EXAMINATION: VITAL SIGNS: Temperature 98, pulse is 110, blood pressure 123/83, O2 saturation 96% on FIO2 of 6 li ters. NECK: Supple, no JVD or lymphadenopathy. CARDIAC: S1, S2, no added sounds or murmurs. CHEST: Diminished air entry bilaterally. ABDOMEN: Soft, nontender. No guarding or rebound. EXTREMITIES: No cyanosis, clubbing. No edema. NEUROLOGIC: Grossly intact. No focal deficits. LABORATORY DATA: White count 29.2, hemoglobin 7.5, platelets of 140. BUN 28, creatinine 0.77. BNP 7770. Sodium 156. IMPRESSION: 1. Chronic respiratory failure, status post extubation. 2. History of lung cancer. 3. Hyponatremia. 4. Acute on chronic encephalopathy. 5. Status post heart failure. PLAN: 1. The patient will continue on supplemental O2. 2. Correction of hypernatremia. 3. Aspiration precautions. 4. DVT and GI prophylaxis. 5. Consider addressing code status again. Dictated By: CASSIE VACA MD SV/SANDER Conf#: [id number] DID#: [id number]
--- NOTE | 2016-08-18 10:41 | PN ---
DATE: SUBJECTIVE: No events overnight. No fevers. The patient is lying comfortably in bed. Tube feedin g on hold secondary to high residuals. No diarrhea, just soft stools. Temperature 98.3, pulse 110, respirations 18, blood pressure 123/88, saturation 97% on 6 liters. WBC 29.2, H and H 7.5 and 26.2 , platelets 140, neutrophils 84, bands 2, lymphs 5, monos 2. BUN 28, creatinine 0.77. INDWELLINGS: 1. NG tube. 2. PICC line placed on 08/14/2016. 3. George catheter. ANTIMICROBIALS: 1. Flagyl. 2. Fluconazole. 3. Oral vancomycin. DIAGNOSTICS: Chest x-ray this morning revealed increased diffuse patchy airspace disease. Lingular mass, unchanged from recent examination. PHYSICAL EXAMINATION: GENERAL: A fragile, cachectic elderly woman, who is in no distress. HEENT: Head atraumatic, normocephalic. Sclerae anicteric. Buccal mucosa dry. NECK: Supple. Trachea midline. CHEST: Chest rise is symmetrical. Breath sounds diminished to the bases. HEART: S1, S2. ABDOMEN: Soft. Bowel sounds present. EXTREMITIES: Without edema. SKIN: With multiple unstageable decubiti. ASSESSMENT: 1. Severe sepsis status post shock. 2. Clostridium difficile colitis. 3. Positive urinalysis on admission, with urine culture being negative. 4. Lung cancer, with worsening chest x-ray. Rule out aspiration pneumonia. 5. ALLERGY TO PENICILLIN. 6. Multiple chronic wounds. 7. Cachexia. 8. Anemia. PLAN: We are going to start the patient on Invanz once daily, given worsening chest x-ray. Continu e oral vancomycin and Flagyl. Discontinue Diflucan. Continue anti-aspiration measures and follow r ecommendations of consultants. Dictated By: RUBIN MAYEN BUTADIENE CONVERTER UTILITY OPERATOR for [employer]/S[employer]ER Conf#: [id number] DID#: [id number]
--- NOTE | 2016-08-18 12:11 | PN ---
Date/Time of Note Date/Time of Note DATE: 08/18/16 TIME: 12:08 Assessment/Plan VTE Prophylaxis VTE Prophylaxis Intervention: SCD's Lines/Catheters [facility] Type ([facility] PICC Line Central line still needed: Yes Urinary Cath still in place: Yes Reason Cath still needed: urinary retention Assessment/Plan Chief Complaint/Hosp Course ASSESSMENT AND PLAN: - Acute hypoxic respiratory failure secondary to pneumonia, chronic obstructive pulmonary disease, and malignancy. Dr. Neri is following in pulmonary consultation. Continue bronchodilators, pulmonary toilet. Continue broad spectrum antibiotics. - Health care acquired pneumonia. Dr. Coleman to see patient in infectious disease consultation. Continue antibiotics per ID recommendations. - Severe sepsis with shock, resolved. - C-diff colitis. continue Vanco and Flagyl. - Hypernatremia, continue free water via GT. - Chronic obstructive pulmonary disease. Continue bronchodilators. - Multiple decubitus ulcers with history of debridement. Continue wound care. - Chronic urinary retention. - Left lung squamous cell carcinoma. - Anemia of chronic disease. - Congestive heart failure. Dr. Tipton is following the patient in cardiology consultation. - Coagulopathy. Continue to monitor on telemetry Continue Pepcid for peptic ulcer disease prophylaxis and sequential compression device for deep venous thrombosis prophylaxis. Further recommendations based on clinical course. Plan of care discussed with Dr. Dozier. Problems: Subjective 24 Hr Interval Summary Free Text/Dictation Patient's remained stable off pressors, afebrile, tolerates NG tube feeding well. Exam/Review of Systems Vital Signs Vitals Vital Signs Date Time Temp Pulse Resp B/P Pulse Ox O2 Delivery O2 Flow Rate FiO2 08/18/16 08:00 123 08/18/16 08:00 Nasal Cannula 6.0 08/18/16 06:00 18 123/88 97 08/18/16 04:00 98.3 08/16/16 11:00 36 Intake and Output 08/17/16 08/17/16 08/18/16 15:00 23:00 07:00 Intake Total 720 ml 1305 ml 1495 ml Output Total 700 ml 675 ml 900 ml Balance 20 ml 630 ml 595 ml Exam PHYSICAL ASSESSMENT: GENERAL: Fragile, cachectic, elderly female, currently on supplemental oxygen. HEENT: Head is atraumatic, normocephalic. Pupils equal, round, reactive to light and accommodation. NGT. NECK: Supple, no thyromegaly. CHEST: Patient has diminished breath sounds with diminished air entry bilaterally. CARDIOVASCULAR: Normal S1, S2. No murmurs, gallops, clicks, rubs noted. ABDOMEN: Flat, nondistended, nontender. Bowel sounds present. There is no guarding, no rebound tenderness. EXTREMITIES: There is no edema, clubbing, cyanosis. Pulses equal bilaterally 2 +. SKIN: Patient has multiple pressure ulcers including sacral wound. NEUROLOGICAL: Lethargic but easily arousable. Results Result Diagram: 08/18/16 0345 08/18/16 0345 Results 24 hrs Laboratory Tests Test 08/17/16 23:10 08/18/16 03:45 08/18/16 07:00 Urine Osmolality 371 Urine Random Sodium 88 Alanine Aminotransferase (ALT/SGPT) 17 Albumin 1.8 L Albumin/Globulin Ratio 0.42 Alkaline Phosphatase 126 H Anion Gap 14 Aspartate Amino Transf (AST/SGOT) 11 L B-Type Natriuretic Peptide 7770 H Band Neutrophils % 2.0 Blood Urea Nitrogen 28 H Calcium Level 8.1 L Carbon Dioxide Level 29 Chloride Level 116 H Creatine Kinase 26 Creatinine 0.77 Direct Bilirubin 0.00 Eosinophils # 0.6 H Eosinophils % 2.0 Globulin 4.20 H Glucose Level 119 # Hematocrit 26.2 L Hemoglobin 7.5 L Hypochromasia FEW Indirect Bilirubin 0.1 Lymphocytes # 1.5 Lymphocytes % 5.0 L Mean Corpuscular Hemoglobin 26.0 L Mean Corpuscular Hemoglobin Concent 28.6 L Mean Corpuscular Volume 90.7 Mean Platelet Volume 10.5 H Metamyelocytes # 0.6 Metamyelocytes % 2.0 H Monocytes # 0.6 Monocytes % 2.0 Myelocytes # 0.3 Myelocytes % 1.0 H Neutrophils # 24.5 H Neutrophils % 84.0 H Osmolality 316 H Platelet Count 140 Potassium Level 3.3 L Promyelocytes # 0.6 Promyelocytes % 2.0 H Red Blood Count 2.89 L Red Cell Distribution Width 19.8 H Sodium Level 156 H Total Bilirubin 0.1 L Total Protein 6.0 L Uric Acid 6.6 White Blood Count 29.2 H Arterial Blood HCO3 26.6 H Arterial Blood Base Excess 2.1 Arterial Blood Oxygen Saturation 93.2 L Nader Test ACCEPTAB Arterial Blood Gas Puncture Site Right Radial Arterial Blood Carboxyhemoglobin 0.3 Arterial Blood Date Drawn 08/18/2016 7:25:28 AM Arterial Blood Methemoglobin 0.6 Arterial Blood pCO2 (Temp correct) 40.9 Arterial Blood pH (Temp corrected) 7.431 Arterial Blood pO2 (Temp corrected) 69.6 L Blood Gas A-a O2 Differential 161.3 H Blood Gas Modality NASAL CANNULA Blood Gas Notified Time 08/18/2016 7:36:00 AM Blood Gas Notified Whom TM Blood Gas Specimen Source Blood arterial Blood Gas Temperature 37.0 FiO2 39.0 Oxyhemoglobin Percent 92.4 L Total Hemoglobin 9.0 L Medications Medications Current Medications Hydralazine HCl (Apresoline) 10 mg Q4H PRN IV SBP>170; Start 08/14/16 at 15:30 IV Flush (NS 10 ml) 10 ml PRN PRN IV IV PROTOCOL; Start 08/14/16 at 16:00 Collagenase 1 applic 1 applic DAILY TOP Last administered on 08/18/16 09:48; Admin Dose 1 APPLIC; Start 08/15/16 at 09:00 Metronidazole (Flagyl 500 Mg (Pmx)) 100 ml @ 100 mls/hr Q8 IVPB Last administered on 08/18/16 06:11; Admin Dose 100 MLS/HR; Start 08/15/16 at 14:00 Sodium Hypochlorite (Dakin'S (1/4 Strength)) 1 applic BID IRR Last administered on 08/18/16 09:48; Admin Dose 1 APPLIC; Start 08/15/16 at 13:30 Vancomycin HCl (Vancomycin Oral Syringe) 250 mg Q6 PO Last administered on 06:11; Admin Dose 250 MG; Start 08/16/16 at 18:00 Morphine Sulfate 1 mg 1 mg Q3H PRN IV PAIN Last administered on 08/18/16 03:52 ; Admin Dose 1 MG; Start 08/16/16 at 15:00 Ertapenem/Sodium Chloride (Invanz/NS) 100 ml @ 200 mls/hr Q24H IVPB ; Start 08/18/16 at 12:00 REBECCA ISLAS Aug 18, 2016 12:11
[2016-08-18] MEDS: ERTAPENEM SODIUM 1 GM in SOD CHLORIDE 0.9% 100 ML IVPB SCH (12:48)
--- NOTE | 2016-08-18 15:10 | CONS ---
Date/Time of Note Date/Time of Note DATE: 08/18/16 TIME: 15:08 Assessment/Plan Assessment/Plan Additional Assessment/Plan 1. Acute kidney injury on possible chronic kidney disease, likely secondary to cardiorenal syndrome in the setting of diastolic heart failure. 2. Acute hypernatremia with Na upto 158 2. Status post extubation for acute hypoxemic respiratory failure. 3. Septic shock. 4. Pulmonary hypertension with a preserved ejection fraction on echocardiogram. 5. History of possible lung cancer. PLAN: S/p 1 liter D5W, Na improving K repalcement Cr normal today will continue to follow up Consultation Date/Type/Reason Admit Date/Time Aug 14, 2016 at 10:56 Initial Consult Date 08/14/16 Type of Consultation: NEPHROLOGY Reason for Consultation Acute Kidney Injury, Hypernatremia Referring Provider: DRE LOBATO MD 24 HR Interval Summary Free Text/Dictation S/p 1 liter D5W, K replaced, Na improving Exam/Review of Systems Vital Signs Vitals Vital Signs Date Time Temp Pulse Resp B/P Pulse Ox O2 Delivery O2 Flow Rate FiO2 08/18/16 12:00 113 08/18/16 08:00 Nasal Cannula 6.0 08/18/16 06:00 18 123/88 97 08/18/16 04:00 98.3 08/16/16 11:00 36 Intake and Output 08/17/16 08/17/16 08/18/16 15:00 23:00 07:00 Intake Total 720 ml 1305 ml 1495 ml Output Total 700 ml 675 ml 900 ml Balance 20 ml 630 ml 595 ml Exam GENERAL: Awake but confused intermittently. mouthbreather HEENT: Normal. Oropharynx clear. NECK: Jugular venous distention up to the mid neck. LUNGS: Decreased breath sounds at both lung bases, bibasilar rales present. HEART: S1, S2, tachycardia, no murmur. ABDOMEN: Soft, nontender, nondistended. Bowel sounds are present. EXTREMITIES: Mild to 1+ pitting edema. Results Result Diagram: 08/18/16 0345 08/18/16 0345 Results 24 hrs Laboratory Tests Test 08/17/16 23:10 08/18/16 03:45 08/18/16 07:00 Urine Osmolality 371 Urine Random Sodium 88 Alanine Aminotransferase (ALT/SGPT) 17 Albumin 1.8 L Albumin/Globulin Ratio 0.42 Alkaline Phosphatase 126 H Anion Gap 14 Aspartate Amino Transf (AST/SGOT) 11 L B-Type Natriuretic Peptide 7770 H Band Neutrophils % 2.0 Blood Urea Nitrogen 28 H Calcium Level 8.1 L Carbon Dioxide Level 29 Chloride Level 116 H Creatine Kinase 26 Creatinine 0.77 Direct Bilirubin 0.00 Eosinophils # 0.6 H Eosinophils % 2.0 Globulin 4.20 H Glucose Level 119 # Hematocrit 26.2 L Hemoglobin 7.5 L Hypochromasia FEW Indirect Bilirubin 0.1 Lymphocytes # 1.5 Lymphocytes % 5.0 L Mean Corpuscular Hemoglobin 26.0 L Mean Corpuscular Hemoglobin Concent 28.6 L Mean Corpuscular Volume 90.7 Mean Platelet Volume 10.5 H Metamyelocytes # 0.6 Metamyelocytes % 2.0 H Monocytes # 0.6 Monocytes % 2.0 Myelocytes # 0.3 Myelocytes % 1.0 H Neutrophils # 24.5 H Neutrophils % 84.0 H Osmolality 316 H Platelet Count 140 Potassium Level 3.3 L Promyelocytes # 0.6 Promyelocytes % 2.0 H Red Blood Count 2.89 L Red Cell Distribution Width 19.8 H Sodium Level 156 H Total Bilirubin 0.1 L Total Protein 6.0 L Uric Acid 6.6 White Blood Count 29.2 H Arterial Blood HCO3 26.6 H Arterial Blood Base Excess 2.1 Arterial Blood Oxygen Saturation 93.2 L Nader Test ACCEPTAB Arterial Blood Gas Puncture Site Right Radial Arterial Blood Carboxyhemoglobin 0.3 Arterial Blood Date Drawn 08/18/2016 7:25:28 AM Arterial Blood Methemoglobin 0.6 Arterial Blood pCO2 (Temp correct) 40.9 Arterial Blood pH (Temp corrected) 7.431 Arterial Blood pO2 (Temp corrected) 69.6 L Blood Gas A-a O2 Differential 161.3 H Blood Gas Modality NASAL CANNULA Blood Gas Notified Time 08/18/2016 7:36:00 AM Blood Gas Notified Whom TM Blood Gas Specimen Source Blood arterial Blood Gas Temperature 37.0 FiO2 39.0 Oxyhemoglobin Percent 92.4 L Total Hemoglobin 9.0 L Medications Medications Current Medications Hydralazine HCl (Apresoline) 10 mg Q4H PRN IV SBP>170; Start 08/14/16 at 15:30 IV Flush (NS 10 ml) 10 ml PRN PRN IV IV PROTOCOL; Start 08/14/16 at 16:00 Collagenase 1 applic 1 applic DAILY TOP Last administered on 08/18/16 09:48; Admin Dose 1 APPLIC; Start 08/15/16 at 09:00 Metronidazole (Flagyl 500 Mg (Pmx)) 100 ml @ 100 mls/hr Q8 IVPB Last administered on 08/18/16 13:56; Admin Dose 100 MLS/HR; Start 08/15/16 at 14:00 Sodium Hypochlorite (Dakin'S (1/4 Strength)) 1 applic BID IRR Last administered on 08/18/16 09:48; Admin Dose 1 APPLIC; Start 08/15/16 at 13:30 Vancomycin HCl (Vancomycin Oral Syringe) 250 mg Q6 PO Last administered on 12:54; Admin Dose 250 MG; Start 08/16/16 at 18:00 Morphine Sulfate 1 mg 1 mg Q3H PRN IV PAIN Last administered on 08/18/16 12:54 ; Admin Dose 1 MG; Start 08/16/16 at 15:00 Ertapenem/Sodium Chloride (Invanz/NS) 100 ml @ 200 mls/hr Q24H IVPB Last administered on 08/18/16 12:48; Admin Dose 200 MLS/HR; Start 08/18/16 at 12:00 DIONNE SAUCEDA MD Aug 18, 2016 15:10
[2016-08-19] VITALS (12 sets, daily range): BP systolic 91–116; BP diastolic 55–72; PULSE 109–139; RESP 18–20
[2016-08-19] MEDS: VANCOMYCIN HCL 250 MG/5ML POSYG PO SCH ×5 (01:05→23:11)
[2016-08-19] MEDS: LEVOTHYROXINE 125 MCG TAB PO SCH (06:33)
[2016-08-19] MEDS: metroNIDAZOLE 500 MG/NS (PMX) 100 ML IVPB SCH ×3 (06:34→22:56)
[2016-08-19] MEDS: morphine 2 MG INJ IV PRN ×4 (09:51→22:56)
[2016-08-19] MEDS: SODIUM HYPOCHLORITE 0.125% 473 ML BTL IRR SCH ×2 (09:53→20:44)
[2016-08-19] MEDS: COLLAGENASE 30 GM TUBE TOP SCH (09:54)
--- NOTE | 2016-08-19 10:49 | CONS ---
Date/Time of Note Date/Time of Note DATE: 08/19/16 TIME: 10:47 Assessment/Plan Assessment/Plan Chief Complaint/Hosp Course Ectopy Septic shock Hypotension, improved Diastolic congestive heart failure Pulmonary hypertension Preserved ejection fraction Tricuspid valve regurgitation Lung cancer Problems: Additional Assessment/Plan 1) replete Mag 2) replete K 3) check Mag Consultation Date/Type/Reason Admit Date/Time Aug 14, 2016 at 10:56 Initial Consult Date 08/14/16 Type of Consultation: cv Referring Provider: DRE LOBATO MD 24 HR Interval Summary Free Text/Dictation frail, no distress, no chest pain, no sob, no syncope Detailed Summary Respiratory: no complaints Cardiovascular: no complaints Gastrointestinal: no complaints Musculoskeletal: no complaints Skin: no complaints Exam/Review of Systems Vital Signs Vitals Vital Signs Date Time Temp Pulse Resp B/P Pulse Ox O2 Delivery O2 Flow Rate FiO2 08/19/16 08:14 139 08/19/16 07:51 98.4 20 102/70 95 08/19/16 05:59 3.0 08/19/16 04:00 Nasal Cannula 08/16/16 11:00 36 Intake and Output 08/18/16 08/18/16 08/19/16 15:00 23:00 07:00 Intake Total 500 ml 800 ml Output Total 850 ml 1900 ml Balance -350 ml -1100 ml Exam Constitutional: frail Head: atraumatic, normocephalic Neck: supple Respiratory: clear to auscultation Cardiovascular: regular rate and rhythm Gastrointestinal: soft Musculoskeletal: nl extremities to inspection Extremities: normal pulses Results Result Diagram: 08/18/16 0345 08/18/16 0345 Medications Medications Current Medications Hydralazine HCl (Apresoline) 10 mg Q4H PRN IV SBP>170; Start 08/14/16 at 15:30 IV Flush (NS 10 ml) 10 ml PRN PRN IV IV PROTOCOL; Start 08/14/16 at 16:00 Collagenase 1 applic 1 applic DAILY TOP Last administered on 08/19/16 09:54; Admin Dose 1 APPLIC; Start 08/15/16 at 09:00 Metronidazole (Flagyl 500 Mg (Pmx)) 100 ml @ 100 mls/hr Q8 IVPB Last administered on 08/19/16 06:34; Admin Dose 100 MLS/HR; Start 08/15/16 at 14:00 Sodium Hypochlorite (Dakin'S (4 Strength)) 1 applic BID IRR Last administered on 08/19/16 09:53; Admin Dose 1 APPLIC; Start 08/15/16 at 13:30 Vancomycin HCl (Vancomycin Oral Syringe) 250 mg Q6 PO Last administered on 06:33; Admin Dose 250 MG; Start 08/16/16 at 18:00 Morphine Sulfate 1 mg 1 mg Q3H PRN IV PAIN Last administered on 08/19/16 09:51 ; Admin Dose 1 MG; Start 08/16/16 at 15:00 Ertapenem/Sodium Chloride (Invanz/NS) 100 ml @ 200 mls/hr Q24H IVPB Last administered on 08/18/16 12:48; Admin Dose 200 MLS/HR; Start 08/18/16 at 12:00 KLEBER DOAN MD Aug 19, 2016 10:49
[2016-08-19 11:02] LABS: ADD SCAN DIFF NO
[2016-08-19 11:05] LABS: ABNORMAL IP MESSAGE 1; HEMATOCRIT 27.5 % (37.0-47.0); HEMOGLOBIN 8.4 g/dl (12.0-16.0); MEAN CORPUSCULAR HEMOGLOBIN 26.9 pg (29.0-33.0); MEAN CORPUSCULAR HGB CONC 30.5 g/dl (32.0-37.0); MEAN CORPUSCULAR VOLUME 88.1 fl (82.0-101.0); MEAN PLATELET VOLUME 10.2 fl (7.4-10.4); PLATELET COUNT 157 10^3/UL (140-415); RED BLOOD COUNT 3.12 10^6/ul (4.20-5.40); RED CELL DISTRIBUTION WIDTH 19.3 % (11.5-14.5); WHITE BLOOD COUNT 27.5 10^3/ul (4.8-10.8)
[2016-08-19 11:16] LABS: CREATININE 0.58 mg/dl (0.44-1.00)
[2016-08-19 11:17] LABS: CALCIUM 7.9 mg/dl (8.4-10.2)
--- NOTE | 2016-08-19 11:30 | PN ---
Date/Time of Note Date/Time of Note DATE: 08/19/16 TIME: 11:29 Assessment/Plan VTE Prophylaxis VTE Prophylaxis Intervention: other Lines/Catheters [facility] P[facility] Line Central line still needed: Yes Urinary Cath still in place: Yes Reason Cath still needed: skin wounds contaminated by urine Assessment/Plan Chief Complaint/Hosp Course - Acute hypoxic respiratory failure secondary to pneumonia, chronic obstructive pulmonary disease, and malignancy. Dr. Neri is following in pulmonary consultation. Continue bronchodilators, pulmonary toilet. Continue broad spectrum antibiotics. - Health care acquired pneumonia. Dr. Coleman to see patient in infectious disease consultation. Continue antibiotics per ID recommendations. - Severe sepsis with shock, resolved. - C-diff colitis. continue Vanco and Flagyl. - Hypernatremia, continue free water via GT. - Chronic obstructive pulmonary disease. Continue bronchodilators. - Multiple decubitus ulcers with history of debridement. Continue wound care. - Chronic urinary retention. - Left lung squamous cell carcinoma. - Anemia of chronic disease. - Congestive heart failure. Dr. Tipton is following the patient in cardiology consultation. - Coagulopathy. Problems: Subjective 24 Hr Interval Summary Free Text/Dictation Patient resting comfortably Exam/Review of Systems Vital Signs Vitals Vital Signs Date Time Temp Pulse Resp B/P Pulse Ox O2 Delivery O2 Flow Rate FiO2 08/19/16 08:14 139 08/19/16 07:51 98.4 20 102/70 95 08/19/16 05:59 3.0 08/19/16 04:00 Nasal Cannula 08/16/16 11:00 36 Intake and Output 08/18/16 08/18/16 08/19/16 15:00 23:00 07:00 Intake Total 500 ml 800 ml Output Total 850 ml 1900 ml Balance -350 ml -1100 ml Exam Constitutional: well developed Head: atraumatic, normocephalic Neck: supple Respiratory: diminished breath sounds Cardiovascular: regular rate and rhythm Gastrointestinal: non-tender, soft Results Result Diagram: 08/19/16 1048 08/18/16 0345 Results 24 hrs Laboratory Tests Test 08/19/16 10:48 Basophils # 0.1 Basophils % 0.3 Eosinophils # 0.2 Eosinophils % 0.5 Hematocrit 27.5 L Hemoglobin 8.4 L Lymphocytes # 2.7 Lymphocytes % 9.7 L Mean Corpuscular Hemoglobin 26.9 L Mean Corpuscular Hemoglobin Concent 30.5 L Mean Corpuscular Volume 88.1 Mean Platelet Volume 10.2 Monocytes # 1.2 H Monocytes % 4.3 Neutrophils # 22.2 H Neutrophils % 80.6 H Nucleated Red Blood Cells # 0.0 Nucleated Red Blood Cells % 0.1 H Platelet Count 157 Red Blood Count 3.12 L Red Cell Distribution Width 19.3 H White Blood Count 27.5 H Medications Medications Current Medications Hydralazine HCl (Apresoline) 10 mg Q4H PRN IV SBP>170; Start 08/14/16 at 15:30 IV Flush (NS 10 ml) 10 ml PRN PRN IV IV PROTOCOL; Start 08/14/16 at 16:00 Collagenase 1 applic 1 applic DAILY TOP Last administered on 08/19/16 09:54; Admin Dose 1 APPLIC; Start 08/15/16 at 09:00 Metronidazole (Flagyl 500 Mg (Pmx)) 100 ml @ 100 mls/hr Q8 IVPB Last administered on 08/19/16 06:34; Admin Dose 100 MLS/HR; Start 08/15/16 at 14:00 Sodium Hypochlorite (Dakin'S (1/4 Strength)) 1 applic BID IRR Last administered on 08/19/16 09:53; Admin Dose 1 APPLIC; Start 08/15/16 at 13:30 Vancomycin HCl (Vancomycin Oral Syringe) 250 mg Q6 PO Last administered on 06:33; Admin Dose 250 MG; Start 08/16/16 at 18:00 Morphine Sulfate 1 mg 1 mg Q3H PRN IV PAIN Last administered on 08/19/16 09:51 ; Admin Dose 1 MG; Start 08/16/16 at 15:00 Ertapenem 1 gm/ Sodium Chloride 100 ml @ 200 mls/hr Q24H IVPB Last administered on 08/18/16 12:48; Admin Dose 200 MLS/HR; Start 08/18/16 at 12:00 Potassium Chloride 20 meq/ Sodium Chloride 110 ml @ 55 mls/hr ONCE ONCE IVPB ; Start 08/19/16 at 12:30; Stop 08/19/16 at 14:29 Magnesium Sulfate/ Dextrose (Magnesium Sulfate 1 Gm/D5W) 100 ml @ 100 mls/hr ONCE ONCE IVPB ; Start 08/19/16 at 12:30; Stop 08/19/16 at 13:29 MICHAEL HOROWITZ Aug 19, 2016 11:30
[2016-08-19 11:40] LABS: LYMPHOCYTES # 1.9 10^3/ul (0.8-2.9); MONOCYTE # 0.6 10^3/ul (0.3-0.9); MYELOCYTES # 0.3; NEUTROPHIL # 23.9 10^3/ul (1.6-7.5)
[2016-08-19 11:53] LABS: POTASSIUM 2.7 mmol/L (3.5-5.1)
[2016-08-19] MEDS ORDERED: POTASSIUM CHLORIDE 20 MEQ in SOD CHLORIDE 0.9% 100 ML IVPB ONE (12:30)
[2016-08-19] MEDS ORDERED: MAGNESIUM SULFATE (GM) 50% 2 ML INJ IVPB ONE (12:30)
[2016-08-19] MEDS ORDERED: MAGNESIUM SULFATE 1 GM/D5W 100 ML IVPB ONE ×2 (12:30→15:00)
--- NOTE | 2016-08-19 12:42 | CONS ---
Date/Time of Note Date/Time of Note DATE: 08/19/16 TIME: 12:37 Assessment/Plan Assessment/Plan Additional Assessment/Plan 1. Acute kidney injury on possible chronic kidney disease, likely secondary to cardiorenal syndrome in the setting of diastolic heart failure. 2. Acute hypernatremia with Na upto 158 2. Status post extubation for acute hypoxemic respiratory failure. 3. Septic shock. 4. Pulmonary hypertension with a preserved ejection fraction on echocardiogram. 5. History of possible lung cancer. PLAN: S/p 1 liter D5W, Na improving, K low, Mag low magnesium sulfate 2 gram IV x 1 dose, then KCL 20mEQ IV X 1 dose Cr normal today will continue to follow up Consultation Date/Type/Reason Admit Date/Time Aug 14, 2016 at 10:56 Initial Consult Date 08/17/2016 Type of Consultation: NEPHROLOGY Reason for Consultation Acute hypernatremia, Acute kidney injury, Hypokalemia Referring Provider: DRE LOBATO MD 24 HR Interval Summary Free Text/Dictation pt K low, Mag low, , transferred to telemetry Exam/Review of Systems Vital Signs Vitals Vital Signs Date Time Temp Pulse Resp B/P Pulse Ox O2 Delivery O2 Flow Rate FiO2 08/19/16 12:11 116 08/19/16 11:56 98.2 20 91/55 94 08/19/16 05:59 3.0 08/19/16 04:00 Nasal Cannula 08/16/16 11:00 36 Intake and Output 08/18/16 08/18/16 08/19/16 14:59 22:59 06:59 Intake Total 625 ml 800 ml Output Total 950 ml 1900 ml Balance -325 ml -1100 ml Exam GENERAL: Awake but confused intermittently. mouthbreather HEENT: Normal. Oropharynx clear. NECK: Jugular venous distention up to the mid neck. LUNGS: Decreased breath sounds at both lung bases, bibasilar rales present. HEART: S1, S2, tachycardia, no murmur. ABDOMEN: Soft, nontender, nondistended. Bowel sounds are present. EXTREMITIES: Mild to 1+ pitting edema. Results Result Diagram: 08/19/16 1048 08/19/16 1048 Results 24 hrs Laboratory Tests Test 08/19/16 10:48 Anion Gap 12 Band Neutrophils % 2.0 Basophils # Basophils % Blood Urea Nitrogen 20 Calcium Level 7.9 L Carbon Dioxide Level 30 Chloride Level 113 H Creatinine 0.58 Differential Comment MANUAL DIFF Eosinophils # Eosinophils % Glucose Level 102 Hematocrit 27.5 L Hemoglobin 8.4 L Lymphocytes # 1.9 Lymphocytes % 7.0 L Magnesium Level 1.1 L Mean Corpuscular Hemoglobin 26.9 L Mean Corpuscular Hemoglobin Concent 30.5 L Mean Corpuscular Volume 88.1 Mean Platelet Volume 10.2 Metamyelocytes # 0.3 Metamyelocytes % 1.0 H Monocytes # 0.6 Monocytes % 2.0 Myelocytes # 0.3 Myelocytes % 1.0 H Neutrophils # 23.9 H Neutrophils % 87.0 H Nucleated Red Blood Cells # Nucleated Red Blood Cells % Platelet Count 157 Potassium Level 2.7 *L Red Blood Count 3.12 L Red Cell Distribution Width 19.3 H Sodium Level 152 H White Blood Count 27.5 H Medications Medications Current Medications Hydralazine HCl (Apresoline) 10 mg Q4H PRN IV SBP>170; Start 08/14/16 at 15:30 IV Flush (NS 10 ml) 10 ml PRN PRN IV IV PROTOCOL; Start 08/14/16 at 16:00 Collagenase 1 applic 1 applic DAILY TOP Last administered on 08/19/16 09:54; Admin Dose 1 APPLIC; Start 08/15/16 at 09:00 Metronidazole (Flagyl 500 Mg (Pmx)) 100 ml @ 100 mls/hr Q8 IVPB Last administered on 08/19/16 06:34; Admin Dose 100 MLS/HR; Start 08/15/16 at 14:00 Sodium Hypochlorite (Dakin'S (1/4 Strength)) 1 applic BID IRR Last administered on 08/19/16 09:53; Admin Dose 1 APPLIC; Start 08/15/16 at 13:30 Vancomycin HCl (Vancomycin Oral Syringe) 250 mg Q6 PO Last administered on 06:33; Admin Dose 250 MG; Start 08/16/16 at 18:00 Morphine Sulfate 1 mg 1 mg Q3H PRN IV PAIN Last administered on 08/19/16 09:51 ; Admin Dose 1 MG; Start 08/16/16 at 15:00 Ertapenem 1 gm/ Sodium Chloride 100 ml @ 200 mls/hr Q24H IVPB Last administered on 08/18/16 12:48; Admin Dose 200 MLS/HR; Start 08/18/16 at 12:00 Potassium Chloride 20 meq/ Sodium Chloride 110 ml @ 55 mls/hr ONCE ONCE IVPB ; Start 08/19/16 at 12:30; Stop 08/19/16 at 14:29 Magnesium Sulfate/ Dextrose (Magnesium Sulfate 1 Gm/D5W) 100 ml @ 100 mls/hr ONCE ONCE IVPB ; Start 08/19/16 at 12:30; Stop 08/19/16 at 13:29 DIONNE SAUCEDA MD Aug 19, 2016 12:42
[2016-08-19] MEDS: ERTAPENEM SODIUM 1 GM in SOD CHLORIDE 0.9% 100 ML IVPB SCH (12:45)
--- NOTE | 2016-08-19 13:41 | CONS ---
Date/Time of Note Date/Time of Note DATE: 08/19/16 TIME: 13:39 Assessment/Plan Assessment/Plan Chief Complaint/Hosp Course SUBJECTIVE: No events overnight. No fevers. The patient is awake, lying comfortably in bed. No fevers INDWELLINGS: 1. NG tube. 2. PICC line placed on 08/14/2016. 3. George catheter. ANTIMICROBIALS: 1. Flagyl. 2. Invanz. 3. Oral vancomycin. DIAGNOSTICS: Chest x-ray 08/19 revealed increased diffuse patchy airspace disease. PHYSICAL EXAMINATION: GENERAL: A fragile, cachectic elderly woman, who is in no distress. HEENT: Head atraumatic, normocephalic. Sclerae anicteric. Buccal mucosa dry. NECK: Supple. Trachea midline. CHEST: Chest rise is symmetrical. Breath sounds diminished to the bases. HEART: S1, S2. ABDOMEN: Soft. Bowel sounds present. EXTREMITIES: Without edema. SKIN: With multiple unstageable decubiti. ASSESSMENT: 1. Severe sepsis status post shock. 2. Clostridium difficile colitis. 3. Positive urinalysis on admission, with urine culture being negative. 4. Lung cancer, with worsening chest x-ray. Rule out aspiration pneumonia. 5. ALLERGY TO PENICILLIN. 6. Multiple chronic wounds. 7. Cachexia. 8. Anemia. PLAN: Stable, continue abx, anti-aspiration measures, local wound care, follow recommendations of consultants. DW staff Problems: Consultation Date/Type/Reason Admit Date/Time Aug 14, 2016 at 10:56 Initial Consult Date 08/14/16 Type of Consultation: ID Referring Provider: DRE LOBATO MD Exam/Review of Systems Vital Signs Vitals Vital Signs Date Time Temp Pulse Resp B/P Pulse Ox O2 Delivery O2 Flow Rate FiO2 08/19/16 12:11 116 08/19/16 11:56 98.2 20 91/55 94 08/19/16 05:59 3.0 08/19/16 04:00 Nasal Cannula 08/16/16 11:00 36 Intake and Output 08/18/16 08/18/16 08/19/16 15:00 23:00 07:00 Intake Total 500 ml 800 ml Output Total 850 ml 1900 ml Balance -350 ml -1100 ml Results Result Diagram: 08/19/16 1048 08/19/16 1048 Results 24 hrs Laboratory Tests Test 08/19/16 10:48 Anion Gap 12 Band Neutrophils % 2.0 Basophils # Basophils % Blood Urea Nitrogen 20 Calcium Level 7.9 L Carbon Dioxide Level 30 Chloride Level 113 H Creatinine 0.58 Differential Comment MANUAL DIFF Eosinophils # Eosinophils % Glucose Level 102 Hematocrit 27.5 L Hemoglobin 8.4 L Lymphocytes # 1.9 Lymphocytes % 7.0 L Magnesium Level 1.1 L Mean Corpuscular Hemoglobin 26.9 L Mean Corpuscular Hemoglobin Concent 30.5 L Mean Corpuscular Volume 88.1 Mean Platelet Volume 10.2 Metamyelocytes # 0.3 Metamyelocytes % 1.0 H Monocytes # 0.6 Monocytes % 2.0 Myelocytes # 0.3 Myelocytes % 1.0 H Neutrophils # 23.9 H Neutrophils % 87.0 H Nucleated Red Blood Cells # Nucleated Red Blood Cells % Platelet Count 157 Potassium Level 2.7 *L Red Blood Count 3.12 L Red Cell Distribution Width 19.3 H Sodium Level 152 H White Blood Count 27.5 H Medications Medications Current Medications Hydralazine HCl (Apresoline) 10 mg Q4H PRN IV SBP>170; Start 08/14/16 at 15:30 IV Flush (NS 10 ml) 10 ml PRN PRN IV IV PROTOCOL; Start 08/14/16 at 16:00 Collagenase 1 applic 1 applic DAILY TOP Last administered on 08/19/16 09:54; Admin Dose 1 APPLIC; Start 08/15/16 at 09:00 Metronidazole (Flagyl 500 Mg (Pmx)) 100 ml @ 100 mls/hr Q8 IVPB Last administered on 08/19/16 13:20; Admin Dose 100 MLS/HR; Start 08/15/16 at 14:00 Sodium Hypochlorite (Dakin'S (1/4 Strength)) 1 applic BID IRR Last administered on 08/19/16 09:53; Admin Dose 1 APPLIC; Start 08/15/16 at 13:30 Vancomycin HCl (Vancomycin Oral Syringe) 250 mg Q6 PO Last administered on 12:45; Admin Dose 250 MG; Start 08/16/16 at 18:00 Morphine Sulfate 1 mg 1 mg Q3H PRN IV PAIN Last administered on 08/19/16 13:17 ; Admin Dose 1 MG; Start 08/16/16 at 15:00 Ertapenem 1 gm/ Sodium Chloride 100 ml @ 200 mls/hr Q24H IVPB Last administered on 08/19/16t 12:45; Admin Dose 200 MLS/HR; Start 08/18/16 at 12:00 Potassium Chloride 20 meq/ Sodium Chloride 110 ml @ 55 mls/hr ONCE ONCE IVPB ; Start 08/19/16 at 12:30; Stop 08/19/16 at 14:29 Magnesium Sulfate/ Dextrose (Magnesium Sulfate 1 Gm/D5W) 100 ml @ 100 mls/hr ONCE ONCE IVPB ; Start 08/19/16 at 15:00; Stop 08/19/16 at 15:59 RUBIN MAYEN NP Aug 19, 2016 13:41
--- NOTE | 2016-08-19 16:08 | CONS ---
Date/Time of Note Date/Time of Note DATE: 08/19/16 TIME: 16:05 Consult Date/Type/Reason Admit Date/Time Aug 14, 2016 at 10:56 Initial Consult Date 08/14/16 Type of Consultation: Pulm Ordering Provider: DRE LOBATO MD Subjective CXR worsening b/l airspace disease. Mildly increased oxygen requirements. Objective Vital Signs Date Time Temp Pulse Resp B/P Pulse Ox O2 Delivery O2 Flow Rate FiO2 08/19/16 15:52 98.2 107 20 116/72 92 08/19/16 15:14 4.0 08/19/16 08:15 Nasal Cannula 08/16/16 11:00 36 Intake and Output 08/18/16 08/18/16 08/19/16 15:00 23:00 07:00 Intake Total 500 ml 800 ml Output Total 850 ml 1900 ml Balance -350 ml -1100 ml HEENT: Neck supple; no JVD; no LAD CVS: RRR, S1 and S2 CHEST: Coarse rhonchi b/l ABD: Soft, NT, + BS EXT: No c/c/e Results/Medications Result Diagram: 08/19/16 1048 08/19/16 1048 Results 24 hrs Laboratory Tests Test 08/19/16 10:48 Anion Gap 12 Band Neutrophils % 2.0 Basophils # Basophils % Blood Urea Nitrogen 20 Calcium Level 7.9 L Carbon Dioxide Level 30 Chloride Level 113 H Creatinine 0.58 Differential Comment MANUAL DIFF Eosinophils # Eosinophils % Glucose Level 102 Hematocrit 27.5 L Hemoglobin 8.4 L Lymphocytes # 1.9 Lymphocytes % 7.0 L Magnesium Level 1.1 L Mean Corpuscular Hemoglobin 26.9 L Mean Corpuscular Hemoglobin Concent 30.5 L Mean Corpuscular Volume 88.1 Mean Platelet Volume 10.2 Metamyelocytes # 0.3 Metamyelocytes % 1.0 H Monocytes # 0.6 Monocytes % 2.0 Myelocytes # 0.3 Myelocytes % 1.0 H Neutrophils # 23.9 H Neutrophils % 87.0 H Nucleated Red Blood Cells # Nucleated Red Blood Cells % Platelet Count 157 Potassium Level 2.7 *L Red Blood Count 3.12 L Red Cell Distribution Width 19.3 H Sodium Level 152 H White Blood Count 27.5 H Medications Current Medications Hydralazine HCl (Apresoline) 10 mg Q4H PRN IV SBP>170; Start 2/27/17 at 15:30 IV Flush (NS 10 ml) 10 ml PRN PRN IV IV PROTOCOL; Start 08/14/16 at 16:00 Collagenase 1 applic 1 applic DAILY TOP Last administered on 08/19/16 09:54; Admin Dose 1 APPLIC; Start 08/15/16 at 09:00 Metronidazole (Flagyl 500 Mg (Pmx)) 100 ml @ 100 mls/hr Q8 IVPB Last administered on 08/19/16 13:20; Admin Dose 100 MLS/HR; Start 08/15/16 at 14:00 Sodium Hypochlorite (Dakin'S (06/21 Strength)) 1 applic BID IRR Last administered on 08/19/16 09:53; Admin Dose 1 APPLIC; Start 08/15/16 at 13:30 Vancomycin HCl (Vancomycin Oral Syringe) 250 mg Q6 PO Last administered on 12:45; Admin Dose 250 MG; Start 08/16/16 at 18:00 Morphine Sulfate 1 mg 1 mg Q3H PRN IV PAIN Last administered on 08/19/16 13:17 ; Admin Dose 1 MG; Start 08/16/16 at 15:00 Ertapenem/Sodium Chloride (Invanz/NS) 100 ml @ 200 mls/hr Q24H IVPB Last administered on 08/19/16 12:45; Admin Dose 200 MLS/HR; Start 08/18/16 at 12:00 Assessment/Plan Additional Assessment/Plan IMPRESSION: 1. Chronic respiratory failure, status post extubation. 2. History of lung cancer. 3. Hyponatremia. 4. Acute on chronic encephalopathy. 5. CHF 6. Sepsis PLAN: 1. Goals of care discussion in view of overall poor prognosis 2. Abx per ID 3. Aspiration precautions PABLO OSMAN MD Aug 19, 2016 16:08
[2016-08-20] VITALS (13 sets, daily range): BP systolic 93–128; BP diastolic 55–86; PULSE 95–171; RESP 20–22
[2016-08-20] MEDS: morphine 2 MG INJ IV PRN ×5 (02:15→21:02)
[2016-08-20] MEDS: VANCOMYCIN HCL 250 MG/5ML POSYG PO SCH ×3 (06:24→18:21)
[2016-08-20] MEDS: LEVOTHYROXINE 125 MCG TAB PO SCH (06:24)
[2016-08-20] MEDS: metroNIDAZOLE 500 MG/NS (PMX) 100 ML IVPB SCH ×3 (06:24→22:38)
[2016-08-20 06:54] LABS: ADD SCAN DIFF NO
[2016-08-20 07:09] LABS: HEMATOCRIT 26.9 % (37.0-47.0); HEMOGLOBIN 8.1 g/dl (12.0-16.0); MEAN CORPUSCULAR HEMOGLOBIN 26.2 pg (29.0-33.0); MEAN CORPUSCULAR HGB CONC 30.1 g/dl (32.0-37.0); MEAN CORPUSCULAR VOLUME 87.1 fl (82.0-101.0); MEAN PLATELET VOLUME 10.2 fl (7.4-10.4); PLATELET COUNT 160 10^3/UL (140-415); RED BLOOD COUNT 3.09 10^6/ul (4.20-5.40); RED CELL DISTRIBUTION WIDTH 19.8 % (11.5-14.5); WHITE BLOOD COUNT 23.5 10^3/ul (4.8-10.8)
[2016-08-20 07:24] LABS: CREATININE 0.51 mg/dl (0.44-1.00)
[2016-08-20 07:25] LABS: CALCIUM 7.7 mg/dl (8.4-10.2)
[2016-08-20 07:30] LABS: POTASSIUM 2.7 mmol/L (3.5-5.1)
[2016-08-20] MEDS ORDERED: POTASSIUM CHLORIDE 250 ML IVPB ONE (09:00)
[2016-08-20] MEDS: SODIUM HYPOCHLORITE 0.125% 473 ML BTL IRR SCH ×2 (09:50→20:55)
[2016-08-20] MEDS: COLLAGENASE 30 GM TUBE TOP SCH (09:51)
[2016-08-20 10:41] LABS: LYMPHOCYTES # 1.4 10^3/ul (0.8-2.9); MONOCYTE # 1.4 10^3/ul (0.3-0.9); NEUTROPHIL # 19.3 10^3/ul (1.6-7.5)
[2016-08-20] MEDS ORDERED: MAGNESIUM SULFATE 2 GM/50 ML 50 ML IVPB ONE (11:30)
--- NOTE | 2016-08-20 11:30 | CONS ---
Date/Time of Note Date/Time of Note DATE: 08/20/16 TIME: 11:28 Assessment/Plan Assessment/Plan Additional Assessment/Plan 1. Acute kidney injury on possible chronic kidney disease, likely secondary to cardiorenal syndrome in the setting of diastolic heart failure. 2. Acute hypernatremia with Na upto 158 2. Status post extubation for acute hypoxemic respiratory failure. 3. Septic shock. 4. Pulmonary hypertension with a preserved ejection fraction on echocardiogram. 5. History of possible lung cancer. PLAN: Na improving slowly with Free water today 150, Mag 1.5- magnesium sulfate 2 gram IV x 1 KCL 40mEQ IV X 1 already ordered Cr normal today will continue to follow up Consultation Date/Type/Reason Admit Date/Time Aug 14, 2016 at 10:56 Initial Consult Date 08/17/2016 Type of Consultation: NEPHROLOGY Reason for Consultation acute kidney injury, Hypernatremia, Hypokalemia, Hypomagnesemia Referring Provider: DRE LOBATO MD 24 HR Interval Summary Free Text/Dictation Cr still low 2.7, Mag 1.5, Cr normal, pt tranferred to telemetry floor Exam/Review of Systems Vital Signs Vitals Vital Signs Date Time Temp Pulse Resp B/P Pulse Ox O2 Delivery O2 Flow Rate FiO2 08/20/16 08:00 124 08/20/16 07:56 97.4 22 93/55 92 08/20/16 03:30 Nasal Cannula 6.0 08/16/16 11:00 36 Intake and Output 08/19/16 08/19/16 08/20/16 14:59 22:59 06:59 Intake Total 400 ml 850 ml Output Total 900 ml 655 ml Balance -500 ml 195 ml Results Result Diagram: 08/20/16 0611 08/20/16 0611 Results 24 hrs Laboratory Tests Test 08/20/16 06:11 Anion Gap 14 Band Neutrophils % 5.0 Basophils # Basophils % Blood Urea Nitrogen 17 Calcium Level 7.7 L Carbon Dioxide Level 31 Chloride Level 108 Creatinine 0.51 Differential Comment MANUAL DIFF Eosinophils # Eosinophils % Glucose Level 100 Hematocrit 26.9 L Hemoglobin 8.1 L Lymphocytes # 1.4 Lymphocytes % 6.0 L Magnesium Level 1.5 L Mean Corpuscular Hemoglobin 26.2 L Mean Corpuscular Hemoglobin Concent 30.1 L Mean Corpuscular Volume 87.1 Mean Platelet Volume 10.2 Monocytes # 1.4 H Monocytes % 6.0 Neutrophils # 19.3 H Neutrophils % 82.0 H Nucleated Red Blood Cells # Nucleated Red Blood Cells % Platelet Count 160 Potassium Level 2.7 *L Reactive Lymphocytes % 1.0 Red Blood Count 3.09 L Red Cell Distribution Width 19.8 H Sodium Level 150 H White Blood Count 23.5 H Medications Medications Current Medications Hydralazine HCl (Apresoline) 10 mg Q4H PRN IV SBP>170; Start 08/14/16 at 15:30 IV Flush (NS 10 ml) 10 ml PRN PRN IV IV PROTOCOL; Start 08/14/16 at 16:00 Collagenase 1 applic 1 applic DAILY TOP Last administered on 08/20/16 09:51; Admin Dose 1 APPLIC; Start 08/15/16 at 09:00 Metronidazole (Flagyl 500 Mg (Pmx)) 100 ml @ 100 mls/hr Q8 IVPB Last administered on 08/20/16 06:24; Admin Dose 100 MLS/HR; Start 08/15/16 at 14:00 Sodium Hypochlorite (Dakin'S (1/4 Strength)) 1 applic BID IRR Last administered on 08/20/16 09:50; Admin Dose 1 APPLIC; Start 08/15/16 at 13:30 Vancomycin HCl (Vancomycin Oral Syringe) 250 mg Q6 PO Last administered on 06:24; Admin Dose 250 MG; Start 08/16/16 at 18:00 Morphine Sulfate 1 mg 1 mg Q3H PRN IV PAIN Last administered on 08/20/16 09:50 ; Admin Dose 1 MG; Start 08/16/16 at 15:00 Ertapenem 1 gm/ Sodium Chloride 100 ml @ 200 mls/hr Q24H IVPB Last administered on 08/19/16 12:45; Admin Dose 200 MLS/HR; Start 08/18/16 at 12:00 Potassium Chloride (KCl 40 MEQ/250 ML NS) 250 ml @ 62.5 mls/hr ONCE ONCE IVPB Last administered on 08/20/16 09:55; Admin Dose 62.5 MLS/HR; Start 08/20/16 at 09:00; Stop 08/20/16 at 12:59 DIONNE SAUCEDA MD Aug 20, 2016 11:30
[2016-08-20] MEDS: ERTAPENEM SODIUM 1 GM in SOD CHLORIDE 0.9% 100 ML IVPB SCH (11:53)
--- NOTE | 2016-08-20 12:48 | PN ---
Date/Time of Note Date/Time of Note DATE: 08/20/16 TIME: 12:47 Assessment/Plan VTE Prophylaxis VTE Prophylaxis Intervention: other Lines/Catheters IV Catheter Type (from Nrs): PICC Line Central line still needed: Yes Urinary Cath still in place: Yes Reason Cath still needed: skin wounds contaminated by urine Assessment/Plan Chief Complaint/Hosp Course - Acute hypoxic respiratory failure secondary to pneumonia, chronic obstructive pulmonary disease, and malignancy. Dr. Neri is following in pulmonary consultation. Continue bronchodilators, pulmonary toilet. Continue broad spectrum antibiotics. - Health care acquired pneumonia. Dr. Coleman to see patient in infectious disease consultation. Continue antibiotics per ID recommendations. - Severe sepsis with shock, resolved. - C-diff colitis. continue Vanco and Flagyl. - Hypernatremia, continue free water via GT. - Chronic obstructive pulmonary disease. Continue bronchodilators. - Multiple decubitus ulcers with history of debridement. Continue wound care. - Chronic urinary retention. - Left lung squamous cell carcinoma. - Anemia of chronic disease. - Congestive heart failure. Dr. Tipton is following the patient in cardiology consultation. - Coagulopathy. Problems: Subjective 24 Hr Interval Summary Free Text/Dictation Patient resting comfortably Exam/Review of Systems Vital Signs Vitals Vital Signs Date Time Temp Pulse Resp B/P Pulse Ox O2 Delivery O2 Flow Rate FiO2 08/20/16 12:17 115 08/20/16 11:42 98.6 20 124/82 94 08/20/16 03:30 Nasal Cannula 6.0 08/16/16 11:00 36 Intake and Output 08/19/16 08/19/16 08/20/16 15:00 23:00 07:00 Intake Total 400 ml 850 ml Output Total 900 ml 655 ml Balance -500 ml 195 ml Exam Constitutional: well developed Head: atraumatic, normocephalic Neck: supple Respiratory: diminished breath sounds Cardiovascular: regular rate and rhythm Gastrointestinal: non-tender, soft Extremities: normal pulses Results Result Diagram: 08/20/16 0611 08/20/16 0611 Results 24 hrs Laboratory Tests Test 08/20/16 06:11 Anion Gap 14 Band Neutrophils % 5.0 Basophils # Basophils % Blood Urea Nitrogen 17 Calcium Level 7.7 L Carbon Dioxide Level 31 Chloride Level 108 Creatinine 0.51 Differential Comment MANUAL DIFF Eosinophils # Eosinophils % Glucose Level 100 Hematocrit 26.9 L Hemoglobin 8.1 L Lymphocytes # 1.4 Lymphocytes % 6.0 L Magnesium Level 1.5 L Mean Corpuscular Hemoglobin 26.2 L Mean Corpuscular Hemoglobin Concent 30.1 L Mean Corpuscular Volume 87.1 Mean Platelet Volume 10.2 Monocytes # 1.4 H Monocytes % 6.0 Neutrophils # 19.3 H Neutrophils % 82.0 H Nucleated Red Blood Cells # Nucleated Red Blood Cells % Platelet Count 160 Potassium Level 2.7 *L Reactive Lymphocytes % 1.0 Red Blood Count 3.09 L Red Cell Distribution Width 19.8 H Sodium Level 150 H White Blood Count 23.5 H Medications Medications Current Medications Hydralazine HCl (Apresoline) 10 mg Q4H PRN IV SBP>170; Start 08/14/16 at 15:30 IV Flush (NS 10 ml) 10 ml PRN PRN IV IV PROTOCOL; Start 08/14/16 at 16:00 Collagenase 1 applic 1 applic DAILY TOP Last administered on 08/20/16 09:51; Admin Dose 1 APPLIC; Start 08/15/16 at 09:00 Metronidazole (Flagyl 500 Mg (Pmx)) 100 ml @ 100 mls/hr Q8 IVPB Last administered on 08/20/16 06:24; Admin Dose 100 MLS/HR; Start 08/15/16 at 14:00 Sodium Hypochlorite (Dakin'S (1/4 Strength)) 1 applic BID IRR Last administered on 08/20/16 09:50; Admin Dose 1 APPLIC; Start 08/15/16 at 13:30 Vancomycin HCl (Vancomycin Oral Syringe) 250 mg Q6 PO Last administered on 11:58; Admin Dose 250 MG; Start 08/16/16 at 18:00 Morphine Sulfate 1 mg 1 mg Q3H PRN IV PAIN Last administered on 08/20/16 09:50 ; Admin Dose 1 MG; Start 08/16/16 at 15:00 Ertapenem 1 gm/ Sodium Chloride 100 ml @ 200 mls/hr Q24H IVPB Last administered on 08/20/16 11:53; Admin Dose 200 MLS/HR; Start 08/18/16 at 12:00 Potassium Chloride 250 ml @ 62.5 mls/hr ONCE ONCE IVPB Last administered on 09:55; Admin Dose 62.5 MLS/HR; Start 08/20/16 at 09:00; Stop 08/20/16 at 12:59 Magnesium Sulfate (Magnesium Sulfate 2 Gm/50 ml) 50 ml @ 25 mls/hr ONCE ONCE IVPB ; Start 08/20/16 at 11:30; Stop 08/20/16 at 13:29 MICHAEL HOROWITZ Aug 20, 2016 12:48
--- NOTE | 2016-08-20 14:10 | CONS ---
Date/Time of Note Date/Time of Note DATE: 08/20/16 TIME: 14:08 Consult Date/Type/Reason Admit Date/Time Aug 14, 2016 at 10:56 Initial Consult Date 08/14/16 Type of Consultation: Pulm Ordering Provider: DRE LOBATO MD Subjective No events overnight. Objective Vital Signs Date Time Temp Pulse Resp B/P Pulse Ox O2 Delivery O2 Flow Rate FiO2 08/20/16 12:17 115 08/20/16 11:42 98.6 20 124/82 94 08/20/16 08:05 Nasal Cannula 6.0 08/16/16 11:00 36 Intake and Output 08/19/16 08/19/16 08/20/16 15:00 23:00 07:00 Intake Total 400 ml 850 ml Output Total 900 ml 655 ml Balance -500 ml 195 ml HEENT: Neck supple; no JVD; no LAD CVS: RRR, S1 and S2 CHEST: Coarse rhonchi b/l ABD: Soft, NT, + BS EXT: No c/c/e Results/Medications Result Diagram: 08/20/16 0611 08/20/16 0611 Results 24 hrs Laboratory Tests Test 08/20/16 06:11 Anion Gap 14 Band Neutrophils % 5.0 Basophils # Basophils % Blood Urea Nitrogen 17 Calcium Level 7.7 L Carbon Dioxide Level 31 Chloride Level 108 Creatinine 0.51 Differential Comment MANUAL DIFF Eosinophils # Eosinophils % Glucose Level 100 Hematocrit 26.9 L Hemoglobin 8.1 L Lymphocytes # 1.4 Lymphocytes % 6.0 L Magnesium Level 1.5 L Mean Corpuscular Hemoglobin 26.2 L Mean Corpuscular Hemoglobin Concent 30.1 L Mean Corpuscular Volume 87.1 Mean Platelet Volume 10.2 Monocytes # 1.4 H Monocytes % 6.0 Neutrophils # 19.3 H Neutrophils % 82.0 H Nucleated Red Blood Cells # Nucleated Red Blood Cells % Platelet Count 160 Potassium Level 2.7 *L Reactive Lymphocytes % 1.0 Red Blood Count 3.09 L Red Cell Distribution Width 19.8 H Sodium Level 150 H White Blood Count 23.5 H Medications Current Medications Hydralazine HCl (Apresoline) 10 mg Q4H PRN IV SBP>170; Start 08/14/16 at 15:30 IV Flush (NS 10 ml) 10 ml PRN PRN IV IV PROTOCOL; Start 08/14/16 at 16:00 Collagenase 1 applic 1 applic DAILY TOP Last administered on 08/20/16 09:51; Admin Dose 1 APPLIC; Start 08/15/16 at 09:00 Metronidazole (Flagyl 500 Mg (Pmx)) 100 ml @ 100 mls/hr Q8 IVPB Last administered on 08/20/16 06:24; Admin Dose 100 MLS/HR; Start 08/15/16 at 14:00 Sodium Hypochlorite (Dakin'S (1/4 Strength)) 1 applic BID IRR Last administered on 08/20/16 09:50; Admin Dose 1 APPLIC; Start 08/15/16 at 13:30 Vancomycin HCl (Vancomycin Oral Syringe) 250 mg Q6 PO Last administered on 11:58; Admin Dose 250 MG; Start 08/16/16 at 18:00 Morphine Sulfate 1 mg 1 mg Q3H PRN IV PAIN Last administered on 08/20/16 09:50 ; Admin Dose 1 MG; Start 08/16/16 at 15:00 Ertapenem/Sodium Chloride (Invanz/NS) 100 ml @ 200 mls/hr Q24H IVPB Last administered on 08/20/16 11:53; Admin Dose 200 MLS/HR; Start 08/18/16 at 12:00 Assessment/Plan Additional Assessment/Plan IMPRESSION: 1. Chronic respiratory failure, status post extubation. 2. History of lung cancer. 3. Hypernatremia/hypokalemia 4. Acute on chronic encephalopathy. 5. CHF 6. Sepsis PLAN: 1. Goals of care discussion in view of overall poor prognosis 2. Abx per ID 3. Aspiration precautions 4. Continue oxygen to titrate to SpO2 > 92% 5. Am CXR/ABG PABLO OSMAN MD Aug 20, 2016 14:10
--- NOTE | 2016-08-20 15:36 | CONS ---
Date/Time of Note Date/Time of Note DATE: 08/20/16 TIME: 15:35 Assessment/Plan Assessment/Plan Chief Complaint/Hosp Course SUBJECTIVE: No events overnight. No fevers. The patient is alert, looks comfortable. No fevers INDWELLINGS: 1. NG tube. 2. PICC line placed on 08/14/2016. 3. George catheter. ANTIMICROBIALS: 1. Flagyl. 2. Invanz. 3. Oral vancomycin. DIAGNOSTICS: Chest x-ray 08/19 revealed increased diffuse patchy airspace disease. PHYSICAL EXAMINATION: GENERAL: A fragile, cachectic elderly woman, who is in no distress. HEENT: Head atraumatic, normocephalic. Sclerae anicteric. Buccal mucosa dry. NECK: Supple. Trachea midline. CHEST: Chest rise is symmetrical. Breath sounds diminished to the bases. HEART: S1, S2. ABDOMEN: Soft. Bowel sounds present. EXTREMITIES: Without edema. SKIN: With multiple unstageable decubiti. ASSESSMENT: 1. Resolving sepsis status post shock. 2. Clostridium difficile colitis. 3. Positive urinalysis on admission, with urine culture being negative. 4. Lung cancer, with worsening chest x-ray. Rule out aspiration pneumonia. 5. ALLERGY TO PENICILLIN. 6. Multiple chronic wounds. 7. Cachexia. 8. Anemia. PLAN: Remains stable, continue abx, anti-aspiration measures, local wound care , follow recommendations of consultants. DW staff Problems: Consultation Date/Type/Reason Admit Date/Time Aug 14, 2016 at 10:56 Initial Consult Date 08/14/16 Type of Consultation: id Referring Provider: DRE LOBATO MD Exam/Review of Systems Vital Signs Vitals Vital Signs Date Time Temp Pulse Resp B/P Pulse Ox O2 Delivery O2 Flow Rate FiO2 08/20/16 12:17 115 08/20/16 11:42 98.6 20 124/82 94 08/20/16 08:05 Nasal Cannula 6.0 08/16/16 11:00 36 Intake and Output 08/19/16 08/19/16 08/20/16 15:00 23:00 07:00 Intake Total 400 ml 850 ml Output Total 900 ml 655 ml Balance -500 ml 195 ml Results Result Diagram: 08/20/16 0611 08/20/16 0611 Results 24 hrs Laboratory Tests Test 08/20/16 06:11 Anion Gap 14 Band Neutrophils % 5.0 Basophils # Basophils % Blood Urea Nitrogen 17 Calcium Level 7.7 L Carbon Dioxide Level 31 Chloride Level 108 Creatinine 0.51 Differential Comment MANUAL DIFF Eosinophils # Eosinophils % Glucose Level 100 Hematocrit 26.9 L Hemoglobin 8.1 L Lymphocytes # 1.4 Lymphocytes % 6.0 L Magnesium Level 1.5 L Mean Corpuscular Hemoglobin 26.2 L Mean Corpuscular Hemoglobin Concent 30.1 L Mean Corpuscular Volume 87.1 Mean Platelet Volume 10.2 Monocytes # 1.4 H Monocytes % 6.0 Neutrophils # 19.3 H Neutrophils % 82.0 H Nucleated Red Blood Cells # Nucleated Red Blood Cells % Platelet Count 160 Potassium Level 2.7 *L Reactive Lymphocytes % 1.0 Red Blood Count 3.09 L Red Cell Distribution Width 19.8 H Sodium Level 150 H White Blood Count 23.5 H Medications Medications Current Medications Hydralazine HCl (Apresoline) 10 mg Q4H PRN IV SBP>170; Start 08/14/16 at 15:30 IV Flush (NS 10 ml) 10 ml PRN PRN IV IV PROTOCOL; Start 08/14/16 at 16:00 Collagenase 1 applic 1 applic DAILY TOP Last administered on 08/20/16 09:51; Admin Dose 1 APPLIC; Start 08/15/16 at 09:00 Metronidazole (Flagyl 500 Mg (Pmx)) 100 ml @ 100 mls/hr Q8 IVPB Last administered on 08/20/16 14:00; Admin Dose 100 MLS/HR; Start 08/15/16 at 14:00 Sodium Hypochlorite (Dakin'S (1/4 Strength)) 1 applic BID IRR Last administered on 08/20/16 09:50; Admin Dose 1 APPLIC; Start 08/15/16 at 13:30 Vancomycin HCl (Vancomycin Oral Syringe) 250 mg Q6 PO Last administered on 11:58; Admin Dose 250 MG; Start 08/16/16 at 18:00 Morphine Sulfate 1 mg 1 mg Q3H PRN IV PAIN Last administered on 08/20/16 09:50 ; Admin Dose 1 MG; Start 08/16/16 at 15:00 Ertapenem/Sodium Chloride (Invanz/NS) 100 ml @ 200 mls/hr Q24H IVPB Last administered on 08/20/16 11:53; Admin Dose 200 MLS/HR; Start 08/18/16 at 12:00 RUBIN MAYEN NP Aug 20, 2016 15:36
[2016-08-21] VITALS (12 sets, daily range): BP systolic 104–143; BP diastolic 67–81; PULSE 94–136; RESP 18–20
[2016-08-21] MEDS: VANCOMYCIN HCL 250 MG/5ML POSYG PO SCH ×4 (00:19→18:38)
[2016-08-21] MEDS: morphine 2 MG INJ IV PRN ×3 (00:25→15:17)
[2016-08-21] MEDS: metroNIDAZOLE 500 MG/NS (PMX) 100 ML IVPB SCH ×3 (05:28→21:39)
[2016-08-21 05:33] LABS: AADO2 Arterial 151.3 mmHg (7.0-24.0); Allen Test ACCEPTAB; Arterial Base Excess 6.4 mmol/L (-3.0-3); Arterial COHb 0.2 % (0.0-3.0); Arterial HCO3 30.2 mmol/L (22.0-26.0); Arterial MetHb 0.5 % (0.0-1.5); MODE NASAL CANNULA
[2016-08-21] MEDS: COLLAGENASE 30 GM TUBE TOP SCH (09:00)
--- NOTE | 2016-08-21 09:19 | RADRPT ---
PROCEDURE: XR Chest. CLINICAL INDICATION: 65-year-old female with history of CHF. TECHNIQUE: Single frontal view of the chest was obtained COMPARISON: Chest x-ray 08/18/2016 06:[address] chest 12/21/2015 FINDINGS: The soft tissues are normal. There are small degenerative osteophytes in the thoracic spine. NG tu be is positioned distal to the GE junction. The left ventricle is borderline enlarged. There is a persistent density measuring about 6 cm transverse 8.2 cm in height projecting along the upper left heart border. There are bilateral mixed interstitial and nodular infiltrates in the lung s. NG tube is in place with its tip distal to the GE junction. IMPRESSION: 1. Persistent at 8 x 6 cm nodular density in the left lower lung field which appears to be the resul t of a neoplasm when compared to the earlier CT chest from 12/21/2015. 2. Bilateral perihilar and basilar mixed interstitial and nodular infiltrates in the lungs. 3. PICC line catheter enters the left arm with its tip in the superior vena cava. 4. An NG tube is well positioned distal to the GE junction. 5. Atherosclerosis aortic arch. RPTAT:AAJJ Physician Irving Date Time Electronically viewed and signed by Physician Irving on 08/21/2016 09:19 QUENTIN/
[2016-08-21] MEDS: LEVOTHYROXINE 125 MCG TAB PO SCH (10:30)
[2016-08-21] MEDS: SODIUM HYPOCHLORITE 0.125% 473 ML BTL IRR SCH ×2 (10:31→21:35)
--- NOTE | 2016-08-21 11:55 | PN ---
Date/Time of Note Date/Time of Note DATE: 08/21/16 TIME: 11:55 Assessment/Plan VTE Prophylaxis VTE Prophylaxis Intervention: SCD's Lines/Catheters IV Catheter Type (from [facility]): PICC Line Central line still needed: Yes Urinary Cath still in place: Yes Reason Cath still needed: urinary retention Assessment/Plan Chief Complaint/Hosp Course ASSESSMENT AND PLAN: - Acute hypoxic respiratory failure secondary to pneumonia, chronic obstructive pulmonary disease, and malignancy. Dr. Neri is following in pulmonary consultation. Continue bronchodilators, pulmonary toilet. Continue broad spectrum antibiotics. - Health care acquired pneumonia. Dr. Coleman to see patient in infectious disease consultation. Continue antibiotics per ID recommendations. - Severe sepsis with shock, resolved. - C-diff colitis. continue Vanco and Flagyl. - Hypernatremia, continue free water via GT. - Chronic obstructive pulmonary disease. Continue bronchodilators. - Multiple decubitus ulcers with history of debridement. Continue wound care. - Chronic urinary retention. - Left lung squamous cell carcinoma. - Anemia of chronic disease. - Congestive heart failure. Dr. Tipton is following the patient in cardiology consultation. - Coagulopathy. Continue to monitor on telemetry Continue Pepcid for peptic ulcer disease prophylaxis and sequential compression device for deep venous thrombosis prophylaxis. Further recommendations based on clinical course. Plan of care discussed with Dr. Dozier. Problems: Subjective 24 Hr Interval Summary Free Text/Dictation Patient remains afebrile, restarted on the NG tube feeding formula, pain is well well controlled, patient is comfortable and supplemental oxygen. Exam/Review of Systems Vital Signs Vitals Vital Signs Date Time Temp Pulse Resp B/P Pulse Ox O2 Delivery O2 Flow Rate FiO2 08/21/16 08:45 136 08/21/16 07:42 97.6 20 126/79 83 08/21/16 06:51 5.0 08/20/16 20:00 Nasal Cannula Intake and Output 08/20/16 08/20/16 08/21/16 15:00 23:00 07:00 Intake Total 640 ml 750 ml Output Total 650 ml 900 ml Balance -10 ml -150 ml Exam PHYSICAL ASSESSMENT: GENERAL: Fragile, cachectic, elderly female, currently on supplemental oxygen. HEENT: Head is atraumatic, normocephalic. Pupils equal, round, reactive to light and accommodation. NGT. NECK: Supple, no thyromegaly. CHEST: Patient has diminished breath sounds with diminished air entry bilaterally. CARDIOVASCULAR: Normal S1, S2. No murmurs, gallops, clicks, rubs noted. ABDOMEN: Flat, nondistended, nontender. Bowel sounds present. There is no guarding, no rebound tenderness. EXTREMITIES: There is no edema, clubbing, cyanosis. Pulses equal bilaterally 2 +. SKIN: Patient has multiple pressure ulcers including sacral wound. NEUROLOGICAL: Lethargic but easily arousable. Results Result Diagram: 08/20/16 0611 08/20/16 0611 Results 24 hrs Laboratory Tests Test 08/21/16 05:00 Arterial Blood HCO3 30.2 H Arterial Blood Base Excess 6.4 H Arterial Blood Oxygen Saturation 90.6 L Nader Test ACCEPTAB Arterial Blood Gas Puncture Site Right Radial Arterial Blood Carboxyhemoglobin 0.2 Arterial Blood Date Drawn 08/21/2016 5:18:13 AM Arterial Blood Methemoglobin 0.5 Arterial Blood pCO2 (Temp correct) 40.4 Arterial Blood pH (Temp corrected) 7.492 H Arterial Blood pO2 (Temp corrected) 58.5 L Blood Gas A-a O2 Differential 151.3 H Blood Gas Modality NASAL CANNULA Blood Gas Notified Time 08/21/2016 5:33:01 AM Blood Gas Notified Whom RTR Blood Gas Specimen Source Blood arterial Blood Gas Temperature 37.0 FiO2 36.0 Oxyhemoglobin Percent 90.0 L Total Hemoglobin 9.0 L Medications Medications Current Medications Hydralazine HCl (Apresoline) 10 mg Q4H PRN IV SBP>170; Start 08/14/16 at 15:30 IV Flush (NS 10 ml) 10 ml PRN PRN IV IV PROTOCOL; Start 08/14/16 at 16:00 Collagenase 1 applic 1 applic DAILY TOP Last administered on 08/21/16 09:00; Admin Dose 1 APPLIC; Start 08/15/16 at 09:00 Metronidazole (Flagyl 500 Mg (Pmx)) 100 ml @ 100 mls/hr Q8 IVPB Last administered on 08/21/16 05:28; Admin Dose 100 MLS/HR; Start 08/15/16 at 14:00 Sodium Hypochlorite (Dakin'S (1/4 Strength)) 1 applic BID IRR Last administered on 08/21/16 10:31; Admin Dose 1 APPLIC; Start 08/15/16 at 13:30 Vancomycin HCl (Vancomycin Oral Syringe) 250 mg Q6 PO Last administered on 05:28; Admin Dose 250 MG; Start 08/16/16 at 18:00 Morphine Sulfate 1 mg 1 mg Q3H PRN IV PAIN Last administered on 08/21/16 03:42 ; Admin Dose 1 MG; Start 08/16/16 at 15:00 Ertapenem/Sodium Chloride (Invanz/NS) 100 ml @ 200 mls/hr Q24H IVPB Last administered on 08/20/16 11:53; Admin Dose 200 MLS/HR; Start 08/18/16 at 12:00 REBECCA ISLAS Aug 21, 2016 11:55
[2016-08-21 12:21] LABS: ADD SCAN DIFF NO
--- NOTE | 2016-08-21 12:25 | CONS ---
Date/Time of Note Date/Time of Note DATE: 08/21/16 TIME: 12:24 Assessment/Plan Assessment/Plan Chief Complaint/Hosp Course SUBJECTIVE: No events overnight. No fevers. The patient is alert, looks comfortable. No fevers INDWELLINGS: 1. NG tube. 2. PICC line placed on 08/14/2016. 3. George catheter. ANTIMICROBIALS: 1. Flagyl. 2. Invanz. 3. Oral vancomycin. PHYSICAL EXAMINATION: GENERAL: A fragile, cachectic elderly woman, who is in no distress. HEENT: Head atraumatic, normocephalic. Sclerae anicteric. Buccal mucosa dry. NECK: Supple. Trachea midline. CHEST: Chest rise is symmetrical. Breath sounds diminished to the bases. HEART: S1, S2. ABDOMEN: Soft. Bowel sounds present. EXTREMITIES: Without edema. SKIN: With multiple unstageable decubiti. ASSESSMENT: 1. Resolving sepsis status post shock. 2. Clostridium difficile colitis. 3. Positive urinalysis on admission, with urine culture being negative. 4. Lung cancer, with worsening chest x-ray. Rule out aspiration pneumonia. 5. ALLERGY TO PENICILLIN. 6. Multiple chronic wounds. 7. Cachexia. 8. Anemia. PLAN: Remains stable, dc Invanz in am, continue abx, anti-aspiration measures , local wound care, follow recommendations of consultants. staff Problems: Consultation Date/Type/Reason Admit Date/Time Aug 14, 2016 at 10:56 Initial Consult Date 08/14/16 Type of Consultation: id Referring Provider: RDE LOBATO MD Exam/Review of Systems Vital Signs Vitals Vital Signs Date Time Temp Pulse Resp B/P Pulse Ox O2 Delivery O2 Flow Rate FiO2 08/21/16 12:19 97.6 88 20 143/69 98 08/21/16 06:51 5.0 08/20/16 20:00 Nasal Cannula Intake and Output 08/20/16 08/20/16 08/21/16 15:00 23:00 07:00 Intake Total 640 ml 750 ml Output Total 650 ml 900 ml Balance -10 ml -150 ml Results Result Diagram: 08/20/16 0611 08/20/16 0611 Results 24 hrs Laboratory Tests Test 08/21/16 05:00 Arterial Blood HCO3 30.2 H Arterial Blood Base Excess 6.4 H Arterial Blood Oxygen Saturation 90.6 L Nader Test ACCEPTAB Arterial Blood Gas Puncture Site Right Radial Arterial Blood Carboxyhemoglobin 0.2 Arterial Blood Date Drawn 08/21/2016 5:18:13 AM Arterial Blood Methemoglobin 0.5 Arterial Blood pCO2 (Temp correct) 40.4 Arterial Blood pH (Temp corrected) 7.492 H Arterial Blood pO2 (Temp corrected) 58.5 L Blood Gas A-a O2 Differential 151.3 H Blood Gas Modality NASAL CANNULA Blood Gas Notified Time 08/21/2016 5:33:01 AM Blood Gas Notified Whom RTR Blood Gas Specimen Source Blood arterial Blood Gas Temperature 37.0 FiO2 36.0 Oxyhemoglobin Percent 90.0 L Total Hemoglobin 9.0 L Medications Medications Current Medications Hydralazine HCl (Apresoline) 10 mg Q4H PRN IV SBP>170; Start 08/14/16 at 15:30 IV Flush (NS 10 ml) 10 ml PRN PRN IV IV PROTOCOL; Start 08/14/16 at 16:00 Collagenase 1 applic 1 applic DAILY TOP Last administered on 08/21/16 09:00; Admin Dose 1 APPLIC; Start 08/15/16 at 09:00 Metronidazole (Flagyl 500 Mg (Pmx)) 100 ml @ 100 mls/hr Q8 IVPB Last administered on 08/21/16 05:28; Admin Dose 100 MLS/HR; Start 08/15/16 at 14:00 Sodium Hypochlorite (Dakin'S (1/4 Strength)) 1 applic BID IRR Last administered on 08/21/16 10:31; Admin Dose 1 APPLIC; Start 08/15/16 at 13:30 Vancomycin HCl (Vancomycin Oral Syringe) 250 mg Q6 PO Last administered on 05:28; Admin Dose 250 MG; Start 08/16/16 at 18:00 Morphine Sulfate 1 mg 1 mg Q3H PRN IV PAIN Last administered on 08/21/16 03:42 ; Admin Dose 1 MG; Start 08/16/16 at 15:00 Ertapenem/Sodium Chloride (Invanz/NS) 100 ml @ 200 mls/hr Q24H IVPB Last administered on 08/20/16 11:53; Admin Dose 200 MLS/HR; Start 08/18/16 at 12:00 RUBIN MAYEN NP Aug 21, 2016 12:24
[2016-08-21 12:28] LABS: ABNORMAL IP MESSAGE 1; HEMATOCRIT 25.4 % (37.0-47.0); HEMOGLOBIN 7.9 g/dl (12.0-16.0); MEAN CORPUSCULAR HEMOGLOBIN 27.1 pg (29.0-33.0); MEAN CORPUSCULAR HGB CONC 31.1 g/dl (32.0-37.0); MEAN CORPUSCULAR VOLUME 87.3 fl (82.0-101.0); MEAN PLATELET VOLUME 9.9 fl (7.4-10.4); PLATELET COUNT 174 10^3/UL (140-415); RED BLOOD COUNT 2.91 10^6/ul (4.20-5.40); RED CELL DISTRIBUTION WIDTH 19.9 % (11.5-14.5); WHITE BLOOD COUNT 26.3 10^3/ul (4.8-10.8)
--- NOTE | 2016-08-21 12:28 | CONS ---
Date/Time of Note Date/Time of Note DATE: 08/21/16 TIME: 12:25 Assessment/Plan Assessment/Plan Additional Assessment/Plan 1. Acute kidney injury on possible chronic kidney disease, likely secondary to cardiorenal syndrome in the setting of diastolic heart failure. 2. Acute hypernatremia with Na upto 158 2. Status post extubation for acute hypoxemic respiratory failure. 3. Septic shock. 4. Pulmonary hypertension with a preserved ejection fraction on echocardiogram. 5. History of possible lung cancer. PLAN: NO labs today yet, because pt refused in AM speech therapy follow up Cr normal today will continue to follow up Consultation Date/Type/Reason Admit Date/Time Aug 14, 2016 at 10:56 Initial Consult Date 08/17/2016 Type of Consultation: NEPHROLOGY Reason for Consultation acute kidney injury,Hypokalemia,Hypernatremia Referring Provider: DRE LOBATO MD 24 HR Interval Summary Free Text/Dictation No labs today, K and magnesium low replaced Yesterday, Exam/Review of Systems Vital Signs Vitals Vital Signs Date Time Temp Pulse Resp B/P Pulse Ox O2 Delivery O2 Flow Rate FiO2 08/21/16 12:19 97.6 88 20 143/69 98 08/21/16 06:51 5.0 08/20/16 20:00 Nasal Cannula Intake and Output 08/20/16 08/20/16 08/21/16 15:00 23:00 07:00 Intake Total 640 ml 750 ml Output Total 650 ml 900 ml Balance -10 ml -150 ml Exam GENERAL: Awake but confused intermittently. mouthbreather HEENT: Normal. Oropharynx clear. NECK: Jugular venous distention up to the mid neck. LUNGS: Decreased breath sounds at both lung bases, bibasilar rales present. HEART: S1, S2, tachycardia, no murmur. ABDOMEN: Soft, nontender, nondistended. Bowel sounds are present. EXTREMITIES: Mild to 1+ pitting edema. Results Result Diagram: 08/20/16 0611 08/20/16 0611 Results 24 hrs Laboratory Tests Test 08/21/16 05:00 Arterial Blood HCO3 30.2 H Arterial Blood Base Excess 6.4 H Arterial Blood Oxygen Saturation 90.6 L Nader Test ACCEPTAB Arterial Blood Gas Puncture Site Right Radial Arterial Blood Carboxyhemoglobin 0.2 Arterial Blood Date Drawn 08/21/2016 5:18:13 AM Arterial Blood Methemoglobin 0.5 Arterial Blood pCO2 (Temp correct) 40.4 Arterial Blood pH (Temp corrected) 7.492 H Arterial Blood pO2 (Temp corrected) 58.5 L Blood Gas A-a O2 Differential 151.3 H Blood Gas Modality NASAL CANNULA Blood Gas Notified Time 08/21/2016 5:33:01 AM Blood Gas Notified Whom RTR Blood Gas Specimen Source Blood arterial Blood Gas Temperature 37.0 FiO2 36.0 Oxyhemoglobin Percent 90.0 L Total Hemoglobin 9.0 L Medications Medications Current Medications Hydralazine HCl (Apresoline) 10 mg Q4H PRN IV SBP>170; Start 08/14/16 at 15:30 IV Flush (NS 10 ml) 10 ml PRN PRN IV IV PROTOCOL; Start 08/14/16 at 16:00 Collagenase 1 applic 1 applic DAILY TOP Last administered on 08/21/16 09:00; Admin Dose 1 APPLIC; Start 08/15/16 at 09:00 Metronidazole (Flagyl 500 Mg (Pmx)) 100 ml @ 100 mls/hr Q8 IVPB Last administered on 08/21/16 05:28; Admin Dose 100 MLS/HR; Start 08/15/16 at 14:00 Sodium Hypochlorite (Dakin'S (1/4 Strength)) 1 applic BID IRR Last administered on 08/21/16 10:31; Admin Dose 1 APPLIC; Start 08/15/16 at 13:30 Vancomycin HCl (Vancomycin Oral Syringe) 250 mg Q6 PO Last administered on 05:28; Admin Dose 250 MG; Start 08/16/16 at 18:00 Morphine Sulfate 1 mg 1 mg Q3H PRN IV PAIN Last administered on 08/21/16 03:42 ; Admin Dose 1 MG; Start 08/16/16 at 15:00 Ertapenem/Sodium Chloride (Invanz/NS) 100 ml @ 200 mls/hr Q24H IVPB Last administered on 08/20/16 11:53; Admin Dose 200 MLS/HR; Start 08/18/16 at 12:00 DIONNE SAUCEDA MD Aug 21, 2016 12:28
[2016-08-21] MEDS: ERTAPENEM SODIUM 1 GM in SOD CHLORIDE 0.9% 100 ML IVPB SCH (12:44)
[2016-08-21 12:49] LABS: CREATININE 0.45 mg/dl (0.44-1.00); INR 1.51; PROTIME 18.3 Sec (12.2-14.2); PT RATIO 1.4
[2016-08-21 12:50] LABS: CALCIUM 7.6 mg/dl (8.4-10.2)
[2016-08-21 12:52] LABS: POTASSIUM 2.8 mmol/L (3.5-5.1)
[2016-08-21 12:54] LABS: PHOSPHORUS 2.9 mg/dl (2.5-4.9)
[2016-08-21 12:55] LABS: MAGNESIUM 1.6 mg/dl (1.7-2.5)
--- NOTE | 2016-08-21 13:25 | PN ---
DATE: 08/21/2016 SUBJECTIVE: Patient remains relatively stable. Still has nasogastric tube in place. Significant w eakness today. PHYSICAL EXAMINATION: VITAL SIGNS: Temperature 97, pulse 88, blood pressure 146/60, O2 saturation 98% on 2 L nasal cannul a. NECK: Supple. No JVD or lymphadenopathy. CARDIAC: S1, S2, no added sounds or murmurs. CHEST: Diminished air entry bilaterally. ABDOMEN: Soft, nontender. No guarding or rebound. EXTREMITIES: No cyanosis, clubbing, edema. NEUROLOGIC: Generalized weakness. LABORATORY DATA: Per chart. IMPRESSION AND PLAN: 1. Acute on chronic hypoxemic respiratory failure. 2. History of lung cancer. 3. History of chronic obstructive pulmonary disease. 4. Status post sepsis. 5. Hypernatremia and hypokalemia. PLAN: 1. Continue supplemental O2. 2. Aspiration precautions. Speech therapy evaluation. 3. Decrease O2 as tolerated. 4. Consider addressing code status as overall prognosis is very poor. Dictated By: CASSIE MORALEZ/SANDER Conf#: [id number] DID#: [id number]
[2016-08-21 13:31] LABS: EOSINOPHILS # 0.3 10^3/ul (0.0-0.5); LYMPHOCYTES # 3.2 10^3/ul (0.8-2.9); MONOCYTE # 0.8 10^3/ul (0.3-0.9); MYELOCYTES # 0.3
[2016-08-21] MEDS ORDERED: POTASSIUM CHLORIDE 20 MEQ POWDER FOR ORAL SOLN NGT ONE (14:00)
[2016-08-21] MEDS ORDERED: MAGNESIUM SULFATE 2 GM/50 ML 50 ML IVPB ONE (14:00)
[2016-08-21] MEDS ORDERED: POTASSIUM CHLORIDE 20 MEQ in SOD CHLORIDE 0.9% 100 ML IVPB ONE (16:00)
[2016-08-21] MEDS: ALTEPLASE (CATHFLO) 2 MG INJ CATHETER PRN (17:18)
[2016-08-22] VITALS (11 sets, daily range): BP systolic 107–173; BP diastolic 70–87; PULSE 95–116; RESP 18–22
[2016-08-22] MEDS: morphine 2 MG INJ IV PRN ×2 (02:38→21:33)
[2016-08-22] MEDS: VANCOMYCIN HCL 250 MG/5ML POSYG PO SCH ×4 (03:00→18:24)
[2016-08-22] MEDS: metroNIDAZOLE 500 MG/NS (PMX) 100 ML IVPB SCH ×3 (05:25→21:33)
[2016-08-22 07:09] LABS: ADD SCAN DIFF NO
[2016-08-22 07:14] LABS: BASOPHILS % 0.1 % (0.0-2.0); EOSINOPHILS # 0.2 10^3/ul (0.0-0.5); EOSINOPHILS % 0.9 % (0.0-7.0); HEMATOCRIT 24.2 % (37.0-47.0); HEMOGLOBIN 7.3 g/dl (12.0-16.0); LYMPHOCYTES # 2.6 10^3/ul (0.8-2.9); LYMPHOCYTES % 11.6 % (15.0-51.0); MEAN CORPUSCULAR HEMOGLOBIN 26.4 pg (29.0-33.0); MEAN CORPUSCULAR HGB CONC 30.2 g/dl (32.0-37.0); MEAN CORPUSCULAR VOLUME 87.7 fl (82.0-101.0); MEAN PLATELET VOLUME 10.3 fl (7.4-10.4); MONOCYTE # 1.2 10^3/ul (0.3-0.9); MONOCYTES % 5.5 % (0.0-11.0); NEUTROPHIL # 17.7 10^3/ul (1.6-7.5); NEUTROPHILS % 79.8 % (39.0-77.0); NUCLEATED RED BLOOD CELLS% 0.1 /100WBC (0.0-0.0); PLATELET COUNT 199 10^3/UL (140-415); RED BLOOD COUNT 2.76 10^6/ul (4.20-5.40); RED CELL DISTRIBUTION WIDTH 20.4 % (11.5-14.5); WHITE BLOOD COUNT 22.2 10^3/ul (4.8-10.8)
[2016-08-22 07:27] LABS: POTASSIUM 3.4 mmol/L (3.5-5.1)
[2016-08-22 07:29] LABS: CREATININE 0.46 mg/dl (0.44-1.00)
[2016-08-22 07:30] LABS: CALCIUM 7.4 mg/dl (8.4-10.2)
[2016-08-22] MEDS: COLLAGENASE 30 GM TUBE TOP SCH (09:00)
[2016-08-22] MEDS: SODIUM HYPOCHLORITE 0.125% 473 ML BTL IRR SCH ×2 (10:02→21:33)
[2016-08-22] MEDS: LEVOTHYROXINE 125 MCG TAB PO SCH (10:03)
--- NOTE | 2016-08-22 11:52 | CONS ---
Date/Time of Note Date/Time of Note DATE: 08/22/16 TIME: 11:51 Assessment/Plan Assessment/Plan Chief Complaint/Hosp Course SUBJECTIVE: No events overnight. No fevers. The patient is alert, looks comfortable. No fevers INDWELLINGS: 1. NG tube. 2. PICC line placed on 08/14/2016. 3. George catheter. ANTIMICROBIALS: 1. Flagyl. 2. Oral vancomycin. PHYSICAL EXAMINATION: GENERAL: A fragile, cachectic elderly woman, who is in no distress. HEENT: Head atraumatic, normocephalic. Sclerae anicteric. Buccal mucosa dry. NECK: Supple. Trachea midline. CHEST: Chest rise is symmetrical. Breath sounds diminished to the bases. HEART: S1, S2. ABDOMEN: Soft. Bowel sounds present. EXTREMITIES: Without edema. SKIN: With multiple unstageable decubiti. ASSESSMENT: 1. Resolving sepsis status post shock. 2. Clostridium difficile colitis. 3. Positive urinalysis on admission, with urine culture being negative. 4. Lung cancer, with worsening chest x-ray. Rule out aspiration pneumonia. 5. ALLERGY TO PENICILLIN. 6. Multiple chronic wounds. 7. Cachexia. 8. Anemia. PLAN: Remains stable, continue abx, anti-aspiration measures, local wound care , follow recommendations of consultants. staff Problems: Consultation Date/Type/Reason Admit Date/Time Aug 14, 2016 at 10:56 Initial Consult Date 08/14/16 Type of Consultation: id Referring Provider: DRE LOBATO MD Exam/Review of Systems Vital Signs Vitals Vital Signs Date Time Temp Pulse Resp B/P Pulse Ox O2 Delivery O2 Flow Rate FiO2 08/22/16 11:40 98.1 124 20 129/81 99 08/21/16 21:26 6.0 08/21/16 21:00 Nasal Cannula Intake and Output 08/21/16 08/21/16 08/22/16 15:00 23:00 07:00 Intake Total 100 ml 400 ml 780 ml Output Total 1650 ml 700 ml Balance 100 ml -1250 ml 80 ml Results Result Diagram: 08/22/16 0623 08/22/16 0623 Results 24 hrs Laboratory Tests Test 08/21/16 12:02 08/22/16 06:23 Activated Partial Thromboplast Time 47.0 H Anion Gap 13 11 Band Neutrophils % 2.0 Blood Urea Nitrogen 15 14 Calcium Level 7.6 L 7.4 L Carbon Dioxide Level 31 33 H Chloride Level 105 109 Creatinine 0.45 0.46 Eosinophils # 0.3 0.2 Eosinophils % 1.0 0.9 Glucose Level 62 #L 89 Hematocrit 25.4 L 24.2 L Hemoglobin 7.9 L 7.3 L INR International Normalized Ratio 1.51 Lymphocytes # 3.2 H 2.6 Lymphocytes % 12.0 L 11.6 L Magnesium Level 1.6 L Mean Corpuscular Hemoglobin 27.1 L 26.4 L Mean Corpuscular Hemoglobin Concent 31.1 L 30.2 L Mean Corpuscular Volume 87.3 87.7 Mean Platelet Volume 9.9 10.3 Metamyelocytes # 0.3 Metamyelocytes % 1.0 H Monocytes # 0.8 1.2 H Monocytes % 3.0 5.5 Myelocytes # 0.3 Myelocytes % 1.0 H Neutrophils # 21.0 H 17.7 H Neutrophils % 80.0 H 79.8 H Phosphorus Level 2.9 Platelet Count 174 199 Potassium Level 2.8 *L 3.4 L Prothrombin Time 18.3 H Prothrombin Time Ratio 1.4 Red Blood Count 2.91 L 2.76 L Red Cell Distribution Width 19.9 H 20.4 H Sodium Level 146 H 150 H White Blood Count 26.3 H 22.2 H Basophils # 0.0 Basophils % 0.1 Nucleated Red Blood Cells # 0.0 Nucleated Red Blood Cells % 0.1 H Medications Medications Current Medications Hydralazine HCl (Apresoline) 10 mg Q4H PRN IV SBP>170; Start 08/14/16 at 15:30 IV Flush (NS 10 ml) 10 ml PRN PRN IV IV PROTOCOL; Start 08/14/16 at 16:00 Collagenase 1 applic 1 applic DAILY TOP Last administered on 08/22/16 09:00; Admin Dose 1 APPLIC; Start 08/15/16 at 09:00 Metronidazole (Flagyl 500 Mg (Pmx)) 100 ml @ 100 mls/hr Q8 IVPB Last administered on 08/22/16 05:25; Admin Dose 100 MLS/HR; Start 08/15/16 at 14:00 Sodium Hypochlorite (Dakin'S (1/4 Strength)) 1 applic BID IRR Last administered on 08/22/16 10:02; Admin Dose 1 APPLIC; Start 08/15/16 at 13:30 Vancomycin HCl (Vancomycin Oral Syringe) 250 mg Q6 PO Last administered on 05:25; Admin Dose 250 MG; Start 08/16/16 at 18:00 Morphine Sulfate (morphine) 1 mg Q3H PRN IV PAIN Last administered on 08/22/16 02:38; Admin Dose 1 MG; Start 08/16/16 at 15:00 RUBIN MAYEN NP Aug 22, 2016 11:52
[2016-08-22] MEDS: D5W + KCL 20 MEQ 1,000 ML IV SCH (14:19)
--- NOTE | 2016-08-22 14:36 | CONS ---
Date/Time of Note Date/Time of Note DATE: 08/22/16 TIME: 14:34 Assessment/Plan Assessment/Plan Additional Assessment/Plan 1. Acute kidney injury on possible chronic kidney disease, likely secondary to cardiorenal syndrome in the setting of diastolic heart failure. 2. Acute hypernatremia with Na upto 158 2. Status post extubation for acute hypoxemic respiratory failure. 3. Septic shock. 4. Pulmonary hypertension with a preserved ejection fraction on echocardiogram. 5. History of possible lung cancer. PLAN: D5W with 20mEQ KCL speech therapy follow up Cr normal today will continue to follow up Consultation Date/Type/Reason Admit Date/Time Aug 14, 2016 at 10:56 Initial Consult Date 08/17/2016 Type of Consultation: NEPHROLOGY Referring Provider: DRE LOBATO MD 24 HR Interval Summary Free Text/Dictation k low, Na trending up, no acute events Exam/Review of Systems Vital Signs Vitals Vital Signs Date Time Temp Pulse Resp B/P Pulse Ox O2 Delivery O2 Flow Rate FiO2 08/22/16 12:05 103 08/22/16 11:40 98.1 20 129/81 99 08/22/16 08:30 Nasal Cannula 6.0 Intake and Output 08/21/16 08/21/16 08/22/16 15:00 23:00 07:00 Intake Total 100 ml 400 ml 780 ml Output Total 1650 ml 700 ml Balance 100 ml -1250 ml 80 ml Exam GENERAL: Awake but confused intermittently. mouthbreather HEENT: Normal. Oropharynx clear. NECK: Jugular venous distention up to the mid neck. LUNGS: Decreased breath sounds at both lung bases, bibasilar rales present. HEART: S1, S2, tachycardia, no murmur. ABDOMEN: Soft, nontender, nondistended. Bowel sounds are present. EXTREMITIES: Mild to 1+ pitting edema. Results Result Diagram: 08/22/16 0623 08/22/16 0623 Results 24 hrs Laboratory Tests Test 08/22/16 06:23 Anion Gap 11 Basophils # 0.0 Basophils % 0.1 Blood Urea Nitrogen 14 Calcium Level 7.4 L Carbon Dioxide Level 33 H Chloride Level 109 Creatinine 0.46 Eosinophils # 0.2 Eosinophils % 0.9 Glucose Level 89 Hematocrit 24.2 L Hemoglobin 7.3 L Lymphocytes # 2.6 Lymphocytes % 11.6 L Mean Corpuscular Hemoglobin 26.4 L Mean Corpuscular Hemoglobin Concent 30.2 L Mean Corpuscular Volume 87.7 Mean Platelet Volume 10.3 Monocytes # 1.2 H Monocytes % 5.5 Neutrophils # 17.7 H Neutrophils % 79.8 H Nucleated Red Blood Cells # 0.0 Nucleated Red Blood Cells % 0.1 H Platelet Count 199 Potassium Level 3.4 L Red Blood Count 2.76 L Red Cell Distribution Width 20.4 H Sodium Level 150 H White Blood Count 22.2 H Medications Medications Current Medications Hydralazine HCl (Apresoline) 10 mg Q4H PRN IV SBP>170; Start 08/14/16 at 15:30 IV Flush (NS 10 ml) 10 ml PRN PRN IV IV PROTOCOL; Start 08/14/16 at 16:00 Collagenase 1 applic 1 applic DAILY TOP Last administered on 08/22/16 09:00; Admin Dose 1 APPLIC; Start 08/15/16 at 09:00 Metronidazole (Flagyl 500 Mg (Pmx)) 100 ml @ 100 mls/hr Q8 IVPB Last administered on 08/22/16 14:19; Admin Dose 100 MLS/HR; Start 08/15/16 at 14:00 Sodium Hypochlorite (Dakin'S (1/4 Strength)) 1 applic BID IRR Last administered on 08/22/16 10:02; Admin Dose 1 APPLIC; Start 08/15/16 at 13:30 Vancomycin HCl (Vancomycin Oral Syringe) 250 mg Q6 PO Last administered on 14:19; Admin Dose 250 MG; Start 08/16/16 at 18:00 Morphine Sulfate 1 mg 1 mg Q3H PRN IV PAIN Last administered on 08/22/16 02:38 ; Admin Dose 1 MG; Start 08/16/16 at 15:00 Potassium Chloride/Dextrose (D5W + KCl 20 Meq) 1,000 ml @ 80 mls/hr [id number] IV Last administered on 08/22/16 14:19; Admin Dose 80 MLS/HR; Start 08/22/16 at 13 :30 DIONNE SAUCEDA MD Aug 22, 2016 14:36
[2016-08-22] MEDS ORDERED: MAGNESIUM SULFATE 2 GM/50 ML 50 ML IVPB ONE (15:30)
--- NOTE | 2016-08-22 16:24 | PN ---
Date/Time of Note Date/Time of Note DATE: 08/22/16 TIME: 16:19 Assessment/Plan VTE Prophylaxis VTE Prophylaxis Intervention: SCD's Lines/Catheters IV Catheter Type (from [facility]): PICC Line Central line still needed: Yes Urinary Cath still in place: Yes Reason Cath still needed: urinary retention Assessment/Plan Chief Complaint/Hosp Course ASSESSMENT AND PLAN: - Acute hypoxic respiratory failure secondary to pneumonia, chronic obstructive pulmonary disease, and malignancy. Dr. Neri is following in pulmonary consultation. Continue bronchodilators, pulmonary toilet. Continue broad spectrum antibiotics. - Health care acquired pneumonia, status post treatment. Dr. Coleman is following in infectious disease consultation. - Severe sepsis with shock, resolved. - C-diff colitis. continue Vanco and Flagyl. - Hypernatremia, continue free water via GT. Dr. Zapata is following a nephrology consultation. - Chronic obstructive pulmonary disease. Continue bronchodilators. - Multiple decubitus ulcers with history of debridement. Continue wound care. - Chronic urinary retention. - Left lung squamous cell carcinoma. - Anemia of chronic disease. - Congestive heart failure. Dr. Tipton is following the patient in cardiology consultation. - Coagulopathy. - Dysphagia, Dr. Gonzales is asked to see patient for possible G-tube placement. Continue to monitor on telemetry Continue Pepcid for peptic ulcer disease prophylaxis and sequential compression device for deep venous thrombosis prophylaxis. Further recommendations based on clinical course. Plan of care discussed with Dr. Dozier. Problems: Subjective 24 Hr Interval Summary Free Text/Dictation Patient's failed swallow evaluation, denies any nausea vomiting remains afebrile , persistent hypernatremia. Exam/Review of Systems Vital Signs Vitals Vital Signs Date Time Temp Pulse Resp B/P Pulse Ox O2 Delivery O2 Flow Rate FiO2 08/22/16 16:05 110 08/22/16 15:59 98.2 20 130/87 99 08/22/16 08:30 Nasal Cannula 6.0 Intake and Output 08/21/16 08/21/16 08/22/16 15:00 23:00 07:00 Intake Total 100 ml 400 ml 780 ml Output Total 1650 ml 700 ml Balance 100 ml -1250 ml 80 ml Exam PHYSICAL ASSESSMENT: GENERAL: Fragile, cachectic, elderly female, currently on supplemental oxygen. HEENT: Head is atraumatic, normocephalic. Pupils equal, round, reactive to light and accommodation. NGT. NECK: Supple, no thyromegaly. CHEST: Patient has diminished breath sounds with diminished air entry bilaterally. CARDIOVASCULAR: Normal S1, S2. No murmurs, gallops, clicks, rubs noted. ABDOMEN: Flat, nondistended, nontender. Bowel sounds present. There is no guarding, no rebound tenderness. EXTREMITIES: There is no edema, clubbing, cyanosis. Pulses equal bilaterally 2 +. SKIN: Patient has multiple pressure ulcers including sacral wound. NEUROLOGICAL: Lethargic but easily arousable. Results Result Diagram: 08/22/16 0623 08/22/16 0623 Results 24 hrs Laboratory Tests Test 08/22/16 06:23 Anion Gap 11 Basophils # 0.0 Basophils % 0.1 Blood Urea Nitrogen 14 Calcium Level 7.4 L Carbon Dioxide Level 33 H Chloride Level 109 Creatinine 0.46 Eosinophils # 0.2 Eosinophils % 0.9 Glucose Level 89 Hematocrit 24.2 L Hemoglobin 7.3 L Lymphocytes # 2.6 Lymphocytes % 11.6 L Mean Corpuscular Hemoglobin 26.4 L Mean Corpuscular Hemoglobin Concent 30.2 L Mean Corpuscular Volume 87.7 Mean Platelet Volume 10.3 Monocytes # 1.2 H Monocytes % 5.5 Neutrophils # 17.7 H Neutrophils % 79.8 H Nucleated Red Blood Cells # 0.0 Nucleated Red Blood Cells % 0.1 H Platelet Count 199 Potassium Level 3.4 L Red Blood Count 2.76 L Red Cell Distribution Width 20.4 H Sodium Level 150 H White Blood Count 22.2 H Medications Medications Current Medications Hydralazine HCl (Apresoline) 10 mg Q4H PRN IV SBP>170; Start 08/14/16 at 15:30 IV Flush (NS 10 ml) 10 ml PRN PRN IV IV PROTOCOL; Start 08/14/16 at 16:00 Collagenase 1 applic 1 applic DAILY TOP Last administered on 08/22/16 09:00; Admin Dose 1 APPLIC; Start 08/15/16 at 09:00 Metronidazole (Flagyl 500 Mg (Pmx)) 100 ml @ 100 mls/hr Q8 IVPB Last administered on 08/22/16 14:19; Admin Dose 100 MLS/HR; Start 08/15/16 at 14:00 Sodium Hypochlorite (Dakin'S (1/4 Strength)) 1 applic BID IRR Last administered on 08/22/16 10:02; Admin Dose 1 APPLIC; Start 08/15/16 at 13:30 Vancomycin HCl (Vancomycin Oral Syringe) 250 mg Q6 PO Last administered on 14:19; Admin Dose 250 MG; Start 08/16/16 at 18:00 Morphine Sulfate 1 mg 1 mg Q3H PRN IV PAIN Last administered on 08/22/16 02:38 ; Admin Dose 1 MG; Start 08/16/16 at 15:00 Potassium Chloride/Dextrose 1,000 ml @ 80 mls/hr [id number] IV Last administered on 08/22/16 14:19; Admin Dose 80 MLS/HR; Start 08/22/16 at 13:30 Magnesium Sulfate (Magnesium Sulfate 2 Gm/50 ml) 50 ml @ 25 mls/hr ONCE ONCE IVPB ; Start 08/22/16 at 15:30; Stop 08/22/16 at 17:29 REBECCA ISLAS Aug 22, 2016 16:24
[2016-08-22] MEDS: ALBUTEROL/IPRATROPIUM (NEB) 3 ML AMP HHN SCH ×2 (16:57→23:40)
--- NOTE | 2016-08-22 17:08 | CONS ---
Date/Time of Note Date/Time of Note DATE: 08/22/16 TIME: 17:05 Assessment/Plan Assessment/Plan Additional Assessment/Plan Sepsis Diastolic congestive heart failure Pulmonary hypertension Preserved ejection fraction Tricuspid valve regurgitation Lung cancer -Blood pressure trend overall stable. Fluid management as per our nephrology colleagues. Potassium supplementation to maintain above 4.0 and magnesium supplementation to maintain above 2.0. Consultation Date/Type/Reason Admit Date/Time Aug 14, 2016 at 10:56 Initial Consult Date 08/14/16 Type of Consultation: cv Referring Provider: DRE LOBATO MD 24 HR Interval Summary Free Text/Dictation Patient denies shortness of breath, chest pain Exam/Review of Systems Vital Signs Vitals Vital Signs Date Time Temp Pulse Resp B/P Pulse Ox O2 Delivery O2 Flow Rate FiO2 08/22/16 16:05 110 08/22/16 15:59 98.2 20 130/87 99 08/22/16 08:30 Nasal Cannula 6.0 Intake and Output 08/21/16 08/21/16 08/22/16 15:00 23:00 07:00 Intake Total 100 ml 400 ml 780 ml Output Total 1650 ml 700 ml Balance 100 ml -1250 ml 80 ml Exam No apparent distress Constitutional: alert, frail, oriented Head: normocephalic Neck: supple Respiratory: other (Coarse breath sounds bilaterally, no wheezing) Cardiovascular: other (S1-S2 heard), regular rate and rhythm Gastrointestinal: bowel sounds, non-tender, other (No guarding), soft Extremities: other (No edema or cyanosis) Results Result Diagram: 08/22/16 0623 08/22/16 0623 Results 24 hrs Laboratory Tests Test 08/22/16 06:23 Anion Gap 11 Basophils # 0.0 Basophils % 0.1 Blood Urea Nitrogen 14 Calcium Level 7.4 L Carbon Dioxide Level 33 H Chloride Level 109 Creatinine 0.46 Eosinophils # 0.2 Eosinophils % 0.9 Glucose Level 89 Hematocrit 24.2 L Hemoglobin 7.3 L Lymphocytes # 2.6 Lymphocytes % 11.6 L Mean Corpuscular Hemoglobin 26.4 L Mean Corpuscular Hemoglobin Concent 30.2 L Mean Corpuscular Volume 87.7 Mean Platelet Volume 10.3 Monocytes # 1.2 H Monocytes % 5.5 Neutrophils # 17.7 H Neutrophils % 79.8 H Nucleated Red Blood Cells # 0.0 Nucleated Red Blood Cells % 0.1 H Platelet Count 199 Potassium Level 3.4 L Red Blood Count 2.76 L Red Cell Distribution Width 20.4 H Sodium Level 150 H White Blood Count 22.2 H Medications Medications Current Medications Hydralazine HCl (Apresoline) 10 mg Q4H PRN IV SBP>170; Start 08/14/16 at 15:30 IV Flush (NS 10 ml) 10 ml PRN PRN IV IV PROTOCOL; Start 08/14/16 at 16:00 Collagenase 1 applic 1 applic DAILY TOP Last administered on 08/22/16 09:00; Admin Dose 1 APPLIC; Start 08/15/16 at 09:00 Metronidazole (Flagyl 500 Mg (Pmx)) 100 ml @ 100 mls/hr Q8 IVPB Last administered on 08/22/16 14:19; Admin Dose 100 MLS/HR; Start 08/15/16 at 14:00 Sodium Hypochlorite (Dakin'S (1/4 Strength)) 1 applic BID IRR Last administered on 08/22/16 10:02; Admin Dose 1 APPLIC; Start 08/15/16 at 13:30 Vancomycin HCl (Vancomycin Oral Syringe) 250 mg Q6 PO Last administered on 14:19; Admin Dose 250 MG; Start 08/16/16 at 18:00 Morphine Sulfate 1 mg 1 mg Q3H PRN IV PAIN Last administered on 08/22/16 02:38 ; Admin Dose 1 MG; Start 08/16/16 at 15:00 Potassium Chloride/Dextrose 1,000 ml @ 80 mls/hr [id number] IV Last administered on 08/22/16 14:19; Admin Dose 80 MLS/HR; Start 08/22/16 at 13:30 Magnesium Sulfate (Magnesium Sulfate 2 Gm/50 ml) 50 ml @ 25 mls/hr ONCE ONCE IVPB ; Start 08/22/16 at 15:30; Stop 08/22/16 at 17:29 Artemio Tipton DO Aug 22, 2016 17:08
[2016-08-22] MEDS ORDERED: POTASSIUM CHLORIDE 20 MEQ POWDER FOR ORAL SOLN NGT ONE (17:30)
--- NOTE | 2016-08-22 17:30 | PN ---
DATE: SUBJECTIVE: Patient Gumaro García remains stable this morning. No new events. Continues supplemen ben O2 at 6 liters nasal cannula, satting at 99%. Overall weak, intermittently confused. PHYSICAL EXAMINATION: VITAL SIGNS: Temperature 98, pulse is 100, blood pressure 129/81, O2 saturation 96% on 5 liters pasquale al cannula. NECK: Supple. No JVD or lymphadenopathy. CARDIAC: S1, S2. No added sounds or murmurs. CHEST: Diminished air entry bilaterally. ABDOMEN: Soft, nontender. No guarding or rebound. EXTREMITIES: No cyanosis, clubbing, edema. NEUROLOGIC: Generalized weakness. IMPRESSION AND PLAN: 1. Progressive lung cancer. 2. Severe cachexia. 3. Recurrent respiratory failure. 4. Failure to thrive. The patient needs to be evaluated for hospice care. Overall, prognosis is very poor. Continue with correction of hyponatremia. Continue with tube feeding as tolerated. Dictated By: CASSIE MORALEZ/SANDER Conf#: [id number] DID#: [id number]
[2016-08-22] MEDS ORDERED: SOD CHLORIDE 0.9% 250 ML IV* ONE (20:54)
--- NOTE | 2016-08-22 22:23 | CONS ---
DATE OF ADMISSION: 08/14/2016 DATE OF CONSULTATION: TYPE OF CONSULTATION: Gastroenterology. Dear Dr. Dozier: Thank you for asking me to see Ms. García in GI consultation. HISTORY OF PRESENT ILLNESS: As you know, the patient is a 65-year-old female. At this time, percutaneous endoscopic gastrostomy tube placement has been requested because of the fact that the patient is unable to eat. She is being fed through the nasogastric tube. She has multipl e other medical problems including acute hypoxic respiratory failure secondary to pneumonia; history of COPD; ____ malignancy, the details of which are not known to me at this stage. She has history of anemia, history of C. difficile colitis for which she is on vancomycin and Flagyl, electrolyte im balance, COPD, decubitus ulcers, left lung squamous cell carcinoma, anemia of chronic disease. History of dysphagia, and because of that, GI consultation is requested. PHYSICAL EXAMINATION: GENERAL: The patient is a 65-year-old female who at this time alert, but she is to tally confused. VITAL SIGNS: Pulse is 95, blood pressure 114/75. CARDIOVASCULAR: Normal heart sounds. RESPIRATORY: Normal breath sounds. ABDOMEN: Evidence of soft abdomen with no masses. LABORATORY WORKUP: Hemoglobin 7.3, hematocrit 24.2, WBC is 22,200. Coagulation: Prothrombin time is 18. The chemistry shows potassium 3.4, sodium 150, calcium 7.4, bilirubin 0.1, ALT is 17. IMAGING: The chest x-ray shows evidence of a nodular density in the left lower lung field, intersti tial infiltrates noted. Please see the report. CLINICAL IMPRESSION: 1. The patient presenting with history of difficulty in swallowing, status post nasogastric tube pl acement. She is on nasogastric feeding. 2. Respiratory failure. 3. Decubitus ulcers. 4. Multiple other medical problems. 5. History of arteriosclerotic heart disease with a past history of congestive heart failure. PLAN: At this time, agree with you that the patient could benefit from percutaneous endoscopic eugenio rostomy tube placement. This can be performed if the family agrees. Once again, doctor, thank you for this consultation. Dictated By: SUNDAR DONATO/SANDER Conf#: [id number] DID#: [id number] CC: DRE DOZIER MD;*[facility] [place]*
[2016-08-23] VITALS (14 sets, daily range): BP systolic 111–141; BP diastolic 71–104; PULSE 97–134; RESP 17–20
[2016-08-23] MEDS: VANCOMYCIN HCL 250 MG/5ML POSYG PO SCH ×4 (02:37→18:00)
[2016-08-23] MEDS: D5W + KCL 20 MEQ 1,000 ML IV SCH ×2 (05:43→14:53)
[2016-08-23] MEDS: LEVOTHYROXINE 125 MCG TAB PO SCH (05:43)
[2016-08-23 05:58] LABS: ADD SCAN DIFF NO
[2016-08-23 06:04] LABS: BASOPHILS % 0.2 % (0.0-2.0); EOSINOPHILS # 0.2 10^3/ul (0.0-0.5); EOSINOPHILS % 0.7 % (0.0-7.0); HEMATOCRIT 27.3 % (37.0-47.0); HEMOGLOBIN 8.4 g/dl (12.0-16.0); LYMPHOCYTES # 2.9 10^3/ul (0.8-2.9); LYMPHOCYTES % 14.2 % (15.0-51.0); MEAN CORPUSCULAR HEMOGLOBIN 25.9 pg (29.0-33.0); MEAN CORPUSCULAR HGB CONC 30.8 g/dl (32.0-37.0); MEAN CORPUSCULAR VOLUME 84.3 fl (82.0-101.0); MEAN PLATELET VOLUME 10.1 fl (7.4-10.4); MONOCYTE # 1.3 10^3/ul (0.3-0.9); MONOCYTES % 6.2 % (0.0-11.0); NEUTROPHIL # 15.8 10^3/ul (1.6-7.5); NEUTROPHILS % 76.7 % (39.0-77.0); PLATELET COUNT 250 10^3/UL (140-415); RED BLOOD COUNT 3.24 10^6/ul (4.20-5.40); WHITE BLOOD COUNT 20.6 10^3/ul (4.8-10.8)
[2016-08-23] MEDS: metroNIDAZOLE 500 MG/NS (PMX) 100 ML IVPB SCH ×3 (06:34→20:45)
[2016-08-23 06:53] LABS: POTASSIUM 3.4 mmol/L (3.5-5.1)
[2016-08-23] MEDS: morphine 2 MG INJ IV PRN ×6 (06:55→20:59)
[2016-08-23 06:56] LABS: CREATININE 0.41 mg/dl (0.44-1.00)
[2016-08-23 07:45] LABS: WHITE BLOOD COUNT 56.7 10^3/ul (4.8-10.8)
[2016-08-23] MEDS: ALBUTEROL/IPRATROPIUM (NEB) 3 ML AMP HHN SCH ×3 (07:56→23:25)
[2016-08-23] MEDS: COLLAGENASE 30 GM TUBE TOP SCH (09:00)
[2016-08-23] MEDS: SODIUM HYPOCHLORITE 0.125% 473 ML BTL IRR SCH ×2 (09:00→20:45)
--- NOTE | 2016-08-23 12:26 | PN ---
Date/Time of Note Date/Time of Note DATE: 08/23/16 TIME: 12:25 Assessment/Plan VTE Prophylaxis VTE Prophylaxis Intervention: SCD's Lines/Catheters IV [facility] PICC Line Central line still needed: Yes Urinary Cath still in place: Yes Reason Cath still needed: urinary retention Assessment/Plan Chief Complaint/Hosp Course ASSESSMENT AND PLAN: - Acute hypoxic respiratory failure secondary to pneumonia, chronic obstructive pulmonary disease, and malignancy. Dr. Neri is following in pulmonary consultation. Continue bronchodilators, pulmonary toilet. Continue broad spectrum antibiotics. - Health care acquired pneumonia, status post treatment. Dr. Coleman is following in infectious disease consultation. - Severe sepsis with shock, resolved. - C-diff colitis. continue Vanco and Flagyl. - Hypernatremia, continue free water via GT. Dr. Zapata is following a nephrology consultation. - Chronic obstructive pulmonary disease. Continue bronchodilators. - Multiple decubitus ulcers with history of debridement. Continue wound care. - Chronic urinary retention. - Left lung squamous cell carcinoma. - Anemia of chronic disease. - Congestive heart failure. Dr. Tipton is following the patient in cardiology consultation. - Coagulopathy. - Dysphagia, Dr. Gonzales is following patient for possible G-tube placement. Continue to monitor on telemetry Continue Pepcid for peptic ulcer disease prophylaxis and sequential compression device for deep venous thrombosis prophylaxis. Further recommendations based on clinical course. Plan of care discussed with Dr. Dozier. Problems: Subjective 24 Hr Interval Summary Free Text/Dictation Pt is NPO for GT placement, no acute event reported shabbir [employer]. Exam/Review of Systems Vital Signs Vitals Vital Signs Date Time Temp Pulse Resp B/P Pulse Ox O2 Delivery O2 Flow Rate FiO2 08/23/16 11:19 97.5 118 18 116/78 96 08/23/16 08:00 Nasal Cannula 6.0 Intake and Output 08/22/16 08/22/16 08/23/16 15:00 23:00 07:00 Output Total 875 ml Balance -875 ml Exam PHYSICAL ASSESSMENT: GENERAL: Fragile, cachectic, elderly female, currently on supplemental oxygen. HEENT: Head is atraumatic, normocephalic. Pupils equal, round, reactive to light and accommodation. NGT. NECK: Supple, no thyromegaly. CHEST: Patient has diminished breath sounds with diminished air entry bilaterally. CARDIOVASCULAR: Normal S1, S2. No murmurs, gallops, clicks, rubs noted. ABDOMEN: Flat, nondistended, nontender. Bowel sounds present. There is no guarding, no rebound tenderness. EXTREMITIES: There is no edema, clubbing, cyanosis. Pulses equal bilaterally 2 +. SKIN: Patient has multiple pressure ulcers including sacral wound. NEUROLOGICAL: Lethargic but easily arousable. Results Result Diagram: 08/23/16 0540 08/23/16 0540 Results 24 hrs Laboratory Tests Test 08/23/16 05:40 Anion Gap 10 Basophils # 0.0 Basophils % 0.2 Blood Urea Nitrogen 12 Calcium Level 7.0 L Carbon Dioxide Level 30 Chloride Level 108 Creatinine 0.41 L Eosinophils # 0.2 Eosinophils % 0.7 Glucose Level 81 Hematocrit 27.3 L Hemoglobin 8.4 L Lymphocytes # 2.9 Lymphocytes % 14.2 L Magnesium Level 2.1 Mean Corpuscular Hemoglobin 25.9 L Mean Corpuscular Hemoglobin Concent 30.8 L Mean Corpuscular Volume 84.3 Mean Platelet Volume 10.1 Monocytes # 1.3 H Monocytes % 6.2 Neutrophils # 15.8 H Neutrophils % 76.7 Nucleated Red Blood Cells # 0.0 Nucleated Red Blood Cells % 0.0 Platelet Count 250 # Potassium Level 3.4 L Red Blood Count 3.24 L Red Cell Distribution Width 21.0 H Sodium Level 145 H White Blood Count 20.6 H Medications Medications Current Medications Hydralazine HCl (Apresoline) 10 mg Q4H PRN IV SBP>170; Start 08/14/16 at 15:30 IV Flush (NS 10 ml) 10 ml PRN PRN IV IV PROTOCOL; Start 08/14/16 at 16:00 Collagenase 1 applic 1 applic DAILY TOP Last administered on 08/22/16 09:00; Admin Dose 1 APPLIC; Start 08/15/16 at 09:00 Metronidazole (Flagyl 500 Mg (Pmx)) 100 ml @ 100 mls/hr Q8 IVPB Last administered on 08/23/16 06:34; Admin Dose 100 MLS/HR; Start 08/15/16 at 14:00 Sodium Hypochlorite (Dakin'S (1/4 Strength)) 1 applic BID IRR Last administered on 08/22/16 21:33; Admin Dose 1 APPLIC; Start 08/15/16 at 13:30 Vancomycin HCl (Vancomycin Oral Syringe) 250 mg Q6 PO Last administered on 02:37; Admin Dose 250 MG; Start 08/16/16 at 18:00 Morphine Sulfate 1 mg 1 mg Q3H PRN IV PAIN Last administered on 08/23/16 09:52 ; Admin Dose 1 MG; Start 08/16/16 at 15:00 Potassium Chloride/Dextrose (D5W + KCl 20 Meq) 1,000 ml @ 80 mls/hr [id number] IV Last administered on 08/23/16 05:43; Admin Dose 80 MLS/HR; Start 08/22/16 at 13 :30 REBECCA ISLAS Aug 23, 2016 12:26
--- NOTE | 2016-08-23 13:45 | CONS ---
Date/Time of Note Date/Time of Note DATE: 08/23/16 TIME: 13:45 Assessment/Plan Assessment/Plan Chief Complaint/Hosp Course SUBJECTIVE: No events overnight. No fevers. The patient is alert, looks comfortable. No fevers INDWELLINGS: 1. NG tube. 2. PICC line placed on 08/14/2016. 3. George catheter. ANTIMICROBIALS: 1. Flagyl. 2. Oral vancomycin. PHYSICAL EXAMINATION: GENERAL: A fragile, cachectic elderly woman, who is in no distress. HEENT: Head atraumatic, normocephalic. Sclerae anicteric. Buccal mucosa dry. NECK: Supple. Trachea midline. CHEST: Chest rise is symmetrical. Breath sounds diminished to the bases. HEART: S1, S2. ABDOMEN: Soft. Bowel sounds present. EXTREMITIES: Without edema. SKIN: With multiple unstageable decubiti. ASSESSMENT: 1. Resolving sepsis status post shock. 2. Clostridium difficile colitis. 3. Positive urinalysis on admission, with urine culture being negative. 4. Lung cancer 5. ALLERGY TO PENICILLIN. 6. Multiple chronic wounds. 7. Cachexia. 8. Anemia. PLAN: Remains stable, continue abx, anti-aspiration measures, local wound care , follow recommendations of consultants. DW staff Problems: Consultation Date/Type/Reason Admit Date/Time Aug 14, 2016 at 10:56 Initial Consult Date 08/14/16 Type of Consultation: id Referring Provider: DRE LOBATO MD Exam/Review of Systems Vital Signs Vitals Vital Signs Date Time Temp Pulse Resp B/P Pulse Ox O2 Delivery O2 Flow Rate FiO2 08/23/16 12:38 134 08/23/16 11:19 97.5 18 116/78 96 08/23/16 08:00 Nasal Cannula 6.0 Intake and Output 08/22/16 08/22/16 08/23/16 15:00 23:00 07:00 Output Total 875 ml Balance -875 ml Results Result Diagram: 08/23/16 0540 08/23/16 0540 Results 24 hrs Laboratory Tests Test 08/23/16 05:40 Anion Gap 10 Basophils # 0.0 Basophils % 0.2 Blood Urea Nitrogen 12 Calcium Level 7.0 L Carbon Dioxide Level 30 Chloride Level 108 Creatinine 0.41 L Eosinophils # 0.2 Eosinophils % 0.7 Glucose Level 81 Hematocrit 27.3 L Hemoglobin 8.4 L Lymphocytes # 2.9 Lymphocytes % 14.2 L Magnesium Level 2.1 Mean Corpuscular Hemoglobin 25.9 L Mean Corpuscular Hemoglobin Concent 30.8 L Mean Corpuscular Volume 84.3 Mean Platelet Volume 10.1 Monocytes # 1.3 H Monocytes % 6.2 Neutrophils # 15.8 H Neutrophils % 76.7 Nucleated Red Blood Cells # 0.0 Nucleated Red Blood Cells % 0.0 Platelet Count 250 # Potassium Level 3.4 L Red Blood Count 3.24 L Red Cell Distribution Width 21.0 H Sodium Level 145 H White Blood Count 20.6 H Medications Medications Current Medications Hydralazine HCl (Apresoline) 10 mg Q4H PRN IV SBP>170; Start 08/14/16 at 15:30 IV Flush (NS 10 ml) 10 ml PRN PRN IV IV PROTOCOL; Start 08/14/16 at 16:00 Collagenase 1 applic 1 applic DAILY TOP Last administered on 08/22/16 09:00; Admin Dose 1 APPLIC; Start 08/15/16 at 09:00 Metronidazole (Flagyl 500 Mg (Pmx)) 100 ml @ 100 mls/hr Q8 IVPB Last administered on 08/23/16 13:00; Admin Dose 100 MLS/HR; Start 08/15/16 at 14:00 Sodium Hypochlorite (Dakin'S (1/4 Strength)) 1 applic BID IRR Last administered on 08/22/16 21:33; Admin Dose 1 APPLIC; Start 08/15/16 at 13:30 Vancomycin HCl (Vancomycin Oral Syringe) 250 mg Q6 PO Last administered on 12:59; Admin Dose 250 MG; Start 08/16/16 at 18:00 Morphine Sulfate 1 mg 1 mg Q3H PRN IV PAIN Last administered on 08/23/16 12:57 ; Admin Dose 1 MG; Start 08/16/16 at 15:00 Potassium Chloride/Dextrose (D5W + KCl 20 Meq) 1,000 ml @ 80 mls/hr [id number] IV Last administered on 08/23/16 05:43; Admin Dose 80 MLS/HR; Start 08/22/16 at 13 :30 RUBIN MAYEN NP Aug 23, 2016 13:45
--- NOTE | 2016-08-23 16:48 | PN ---
DATE: 08/23/2016 SUBJECTIVE: Patient Gumaro remains essentially unchanged. OBJECTIVE: VITAL SIGNS: Temperature 97, pulse is 100, blood pressure 132/60, O2 saturation 96% on 6 L nasal ca nnula. NECK: Supple. No JVD or lymphadenopathy. CARDIAC: S1, S2, no added sounds or murmurs. CHEST: Diminished air entry bilaterally. ABDOMEN: Soft, nontender, cachectic. EXTREMITIES: No cyanosis, clubbing or edema. NEUROLOGIC: Generalized weakness. LABORATORY DATA: White count 20.6, hemoglobin 8.4, platelets of 250, BUN 12, creatinine 0.41. IMPRESSION AND PLAN: 1. Lung cancer. 2. Chronic obstructive pulmonary disease. 3. Recurrent pneumonia. 4. Recurrent respiratory failure. 5. Significant cachexia. The patient should continue with ID recommendations. Continue with tube feeding as tolerated. Consider palliative care consult. Dictated By: CASSIE MORALEZ/SANDER Conf#: [id number] DID#: [id number]
[2016-08-23] MEDS ORDERED: PROPOFOL 20 ML ONE (18:32)
[2016-08-23] MEDS ORDERED: LIDOCAINE 2% (SDV) 5 ML INJ ONE (18:32)
[2016-08-23] MEDS ORDERED: EPHEDrine SULFATE 50 MG/5 ML SYG IV PRN (19:00)
[2016-08-23] MEDS ORDERED: ONDANSETRON 4 MG INJ IV PRN (19:00)
[2016-08-23] MEDS ORDERED: HYDROmorphONE (0.2 MG/ML) 10ML SYG IV PRN (19:00)
[2016-08-23] MEDS ORDERED: PHENYLephrine (100 MCG/ML) 5ML SYG ONE ×2 (19:12→19:28)
--- NOTE | 2016-08-23 20:40 | GILP ---
DATE OF PROCEDURE: NAME OF PROCEDURE: Esophagogastroduodenoscopy, percutaneous endoscopic gastrostomy tube placement. PREOPERATIVE DIAGNOSIS: The patient presenting with a history of difficulty in swallowing. She has got weight loss. Procedure at this time is performed to create access for long-term nutritional thacker pport. POSTOPERATIVE DIAGNOSES: The patient presenting with a history of difficulty in swallowing, she has got weight loss procedure at this time is performed to create access for long-term nutritional supp ort. DESCRIPTION OF PROCEDURE: After informed written consent was obtained, the patient was asked to lie on the left lateral side. The patient was given intravenous anesthesia by anesthesiologist, Dr. Eduardo flores. When the patient became somnolent, the Olympus video upper endoscope was introduced into the or opharynx, then into the esophagus. Esophagus appeared normal. The stomach appeared normal. Endosc ope at this time was advanced into the duodenum. Duodenum appeared normal. The scope at this time was withdrawn to the level of the gastric cavity. The anterior abdominal wall was prepared with Bet adine and alcohol. Then, 2 mL of 2% Xylocaine was infiltrated at the endoscopic illuminating site. A 5 mm incision was made by using the scalpel. Through this incision, trocar was inserted into the stomach. After removing the stylette, the guidewire was inserted into the stomach and the guidewir e was grabbed with a polypectomy snare and then guidewire was brought out through the mouth along wi th the endoscope. To this end of the guidewire, a #20 Microvasive G-tube was tied in a loop fashion and then it was brought out through the abdominal wall incision. Retention bumper was placed over the G-tube close to the skin. Tapered end of the gastrostomy tube was cut, the adapter was placed, and the procedure was terminated. PLAN: Recommend starting G-tube feeding in a.m. Dictated By: SUNDAR DONATO/SANDER Conf#: [id number] DID#: [id number] CC: DRE LOBATO MD; SUNDAR VALVERDE MD;*[facility]*
--- NOTE | 2016-08-23 21:06 | CONS ---
Date/Time of Note Date/Time of Note DATE: 08/23/16 TIME: 21:04 Assessment/Plan Assessment/Plan Additional Assessment/Plan 1. Acute kidney injury on possible chronic kidney disease, likely secondary to cardiorenal syndrome in the setting of diastolic heart failure. 2. Acute hypernatremia with Na upto 158 2. Status post extubation for acute hypoxemic respiratory failure. 3. Septic shock. 4. Pulmonary hypertension with a preserved ejection fraction on echocardiogram. 5. History of possible lung cancer. PLAN: D5W with 20mEQ KCL speech therapy follow up Cr normal today will continue to follow up Consultation Date/Type/Reason Admit Date/Time Aug 14, 2016 at 10:56 Initial Consult Date 08/17/2016 Type of Consultation: NEPHROLOGY Reason for Consultation acute kidney injury, Hypernatremia Referring Provider: DRE LOBATO MD Exam/Review of Systems Vital Signs Vitals Vital Signs Date Time Temp Pulse Resp B/P Pulse Ox O2 Delivery O2 Flow Rate FiO2 08/23/16 20:39 97 08/23/16 20:09 97.5 20 111/77 95 Nasal Cannula 5.0 Intake and Output 08/22/16 08/22/16 08/23/16 15:00 23:00 07:00 Output Total 875 ml Balance -875 ml Exam GENERAL: Awake but confused intermittently. mouthbreather HEENT: Normal. Oropharynx clear. NECK: Jugular venous distention up to the mid neck. LUNGS: Decreased breath sounds at both lung bases, bibasilar rales present. HEART: S1, S2, tachycardia, no murmur. ABDOMEN: Soft, nontender, nondistended. Bowel sounds are present. EXTREMITIES: Mild to 1+ pitting edema. Results Result Diagram: 08/23/16 0540 08/23/16 0540 Results 24 hrs Laboratory Tests Test 08/23/16 05:40 Anion Gap 10 Basophils # 0.0 Basophils % 0.2 Blood Urea Nitrogen 12 Calcium Level 7.0 L Carbon Dioxide Level 30 Chloride Level 108 Creatinine 0.41 L Eosinophils # 0.2 Eosinophils % 0.7 Glucose Level 81 Hematocrit 27.3 L Hemoglobin 8.4 L Lymphocytes # 2.9 Lymphocytes % 14.2 L Magnesium Level 2.1 Mean Corpuscular Hemoglobin 25.9 L Mean Corpuscular Hemoglobin Concent 30.8 L Mean Corpuscular Volume 84.3 Mean Platelet Volume 10.1 Monocytes # 1.3 H Monocytes % 6.2 Neutrophils # 15.8 H Neutrophils % 76.7 Nucleated Red Blood Cells # 0.0 Nucleated Red Blood Cells % 0.0 Platelet Count 250 # Potassium Level 3.4 L Red Blood Count 3.24 L Red Cell Distribution Width 21.0 H Sodium Level 145 H White Blood Count 20.6 H Medications Medications Current Medications Hydralazine HCl (Apresoline) 10 mg Q4H PRN IV SBP>170; Start 08/14/16 at 15:30 IV Flush (NS 10 ml) 10 ml PRN PRN IV IV PROTOCOL; Start 08/14/16 at 16:00 Collagenase 1 applic 1 applic DAILY TOP Last administered on 08/23/16 09:00; Admin Dose 1 APPLIC; Start 08/15/16 at 09:00 Metronidazole (Flagyl 500 Mg (Pmx)) 100 ml @ 100 mls/hr Q8 IVPB Last administered on 08/23/16 20:45; Admin Dose 100 MLS/HR; Start 08/15/16 at 14:00 Sodium Hypochlorite (Dakin'S (1/4 Strength)) 1 applic BID IRR Last administered on 08/23/16 20:45; Admin Dose 1 APPLIC; Start 08/15/16 at 13:30 Vancomycin HCl (Vancomycin Oral Syringe) 250 mg Q6 PO Last administered on 12:59; Admin Dose 250 MG; Start 08/16/16 at 18:00 Morphine Sulfate 1 mg 1 mg Q3H PRN IV PAIN Last administered on 08/23/16 20:59 ; Admin Dose 1 MG; Start 08/16/16 at 15:00 Potassium Chloride/Dextrose (D5W + KCl 20 Meq) 1,000 ml @ 80 mls/hr [id number] IV Last administered on 08/23/16 14:53; Admin Dose 80 MLS/HR; Start 08/22/16 at 13 :30 DIONNE SAUCEDA MD Aug 23, 2016 21:05
[2016-08-24] VITALS (12 sets, daily range): BP systolic 109–133; BP diastolic 57–87; PULSE 91–114; RESP 15–21
[2016-08-24] MEDS: morphine 2 MG INJ IV PRN ×5 (02:52→23:54)
[2016-08-24] MEDS: D5W + KCL 20 MEQ 1,000 ML IV SCH ×3 (02:54→23:54)
[2016-08-24] MEDS: metroNIDAZOLE 500 MG/NS (PMX) 100 ML IVPB SCH ×3 (05:09→20:51)
[2016-08-24] MEDS: VANCOMYCIN HCL 250 MG/5ML POSYG PO SCH ×5 (05:10→23:53)
[2016-08-24 07:30] LABS: ADD SCAN DIFF NO
[2016-08-24] MEDS: ALBUTEROL/IPRATROPIUM (NEB) 3 ML AMP HHN SCH ×2 (07:31→16:43)
[2016-08-24 07:39] LABS: ABNORMAL IP MESSAGE 1; BASOPHILS % 0.2 % (0.0-2.0); EOSINOPHILS # 0.2 10^3/ul (0.0-0.5); EOSINOPHILS % 0.9 % (0.0-7.0); HEMATOCRIT 26.8 % (37.0-47.0); HEMOGLOBIN 8.2 g/dl (12.0-16.0); LYMPHOCYTES # 2.4 10^3/ul (0.8-2.9); LYMPHOCYTES % 12.8 % (15.0-51.0); MEAN CORPUSCULAR HEMOGLOBIN 25.5 pg (29.0-33.0); MEAN CORPUSCULAR HGB CONC 30.6 g/dl (32.0-37.0); MEAN CORPUSCULAR VOLUME 83.5 fl (82.0-101.0); MEAN PLATELET VOLUME 10.2 fl (7.4-10.4); MONOCYTE # 1.5 10^3/ul (0.3-0.9); MONOCYTES % 8.1 % (0.0-11.0); NEUTROPHIL # 14.3 10^3/ul (1.6-7.5); NUCLEATED RED BLOOD CELLS% 0.1 /100WBC (0.0-0.0); PLATELET COUNT 333 10^3/UL (140-415); RED BLOOD COUNT 3.21 10^6/ul (4.20-5.40); RED CELL DISTRIBUTION WIDTH 20.4 % (11.5-14.5); WHITE BLOOD COUNT 18.8 10^3/ul (4.8-10.8)
[2016-08-24 07:58] LABS: CREATININE 0.41 mg/dl (0.44-1.00)
[2016-08-24] MEDS: LEVOTHYROXINE 125 MCG TAB PO SCH (09:35)
[2016-08-24] MEDS: SODIUM HYPOCHLORITE 0.125% 473 ML BTL IRR SCH ×2 (10:30→20:52)
[2016-08-24] MEDS: COLLAGENASE 30 GM TUBE TOP SCH (10:30)
--- NOTE | 2016-08-24 11:32 | PN ---
DATE: 08/24/2016 The patient remains relatively stable. VITAL SIGNS: Temperature 98, pulse is 91, blood pressure 130/70, O2 saturation 96% on 6 liters. NECK: Supple. No JVD or lymphadenopathy. CARDIAC: S1, S2, no added sounds or murmurs. CHEST: Diminished air entry bilaterally. ABDOMEN: Soft, nontender. No guarding or rebound. EXTREMITIES: No cyanosis, clubbing, edema. NEUROLOGIC: Generalized weakness. LABORATORY DATA: White count 18.8, hemoglobin 8.2, platelets of 333. Chemistry: BUN 8, creatinine 0.41. Potassium was 3. IMPRESSION AND PLAN: 1. Hyperkalemia. 2. Acute on chronic hypoxemic respiratory failure. 3. Resolving chronic obstructive pulmonary disease exacerbation. 4. Status post EGD with PEG tube placement. 5. History of lung cancer. PLAN: 1. Continue tube feeding. 2. Correction of electrolyte imbalance. 3. Aspiration precautions. 4. Consider addressing code status. Dictated By: CASSIE MORALEZ/SANDER Conf#: [id number] DID#: [id number]
--- NOTE | 2016-08-24 11:37 | PN ---
Date/Time of Note Date/Time of Note DATE: 08/24/16 TIME: 11:35 Assessment/Plan VTE Prophylaxis VTE Prophylaxis Intervention: SCD's, other Lines/Catheters IV Catheter Type (from Nrs): PICC Line Central line still needed: Yes Urinary Cath still in place: Yes Reason Cath still needed: urinary retention Assessment/Plan Assessment/Plan - Acute hypoxic respiratory failure secondary to pneumonia, chronic obstructive pulmonary disease, and malignancy. - per Dr. Neri in pulmonary consultation. Continue bronchodilators, pulmonary toilet. Continue broad spectrum antibiotics. - Health care acquired pneumonia. - per Dr. Coleman in infectious disease consultation. Continue antibiotics per ID recommendations. - Severe sepsis with shock, resolved. - C-diff colitis. continue Vanco and Flagyl. - Hypernatremia, continue free water via GT. - per Dr. Zapata in nephrology consultation. - Chronic obstructive pulmonary disease. Continue bronchodilators. - Multiple decubitus ulcers with history of debridement. Continue wound care. - Chronic urinary retention. - Left lung squamous cell carcinoma. - Anemia of chronic disease. - Congestive heart failure. - per Dr. Tipton in cardiology consultation. - Coagulopathy. - Dysphagia - per Dr. Gonzales, plan for possible G-tube placement. Continue to monitor on telemetry Continue Pepcid for peptic ulcer disease prophylaxis and sequential compression device for deep venous thrombosis prophylaxis. Further recommendations based on clinical course. Plan of care discussed with Dr. Dozier. Subjective 24 Hr Interval Summary Constitutional: improved Eyes: no complaints ENT: no complaints Respiratory: no complaints Cardiovascular: no complaints Gastrointestinal: no complaints Genitourinary: no complaints Musculoskeletal: no complaints Skin: no complaints Neurologic: no complaints Exam/Review of Systems Vital Signs Vitals Vital Signs Date Time Temp Pulse Resp B/P Pulse Ox O2 Delivery O2 Flow Rate FiO2 08/24/16 11:30 97.9 96 19 125/57 96 08/24/16 07:40 Nasal Cannula 6.0 Intake and Output 08/23/16 08/23/16 08/24/16 15:00 23:00 07:00 Intake Total 260 ml Output Total 850 ml 800 ml Balance -590 ml -800 ml Exam Constitutional: alert Psych: nl mood/affect Head: atraumatic Eyes: EOMI, PERRL, nl sclera ENMT: nl external ears & nose Neck: non-tender Respiratory: clear to auscultation Cardiovascular: nl pulses Gastrointestinal: non-tender, soft Musculoskeletal: other Extremities: normal pulses Neurological: confused, nl speech Skin: other Lymph: nontender Results Result Diagram: 08/24/1662408/24/16 0625 Results 24 hrs Laboratory Tests Test 08/24/16 06:25 Anion Gap 12 Basophils # 0.0 Basophils % 0.2 Blood Urea Nitrogen 8 Calcium Level 7.0 L Carbon Dioxide Level 28 Chloride Level 102 Creatinine 0.41 L Eosinophils # 0.2 Eosinophils % 0.9 Glucose Level 55 #L Hematocrit 26.8 L Hemoglobin 8.2 L Lymphocytes # 2.4 Lymphocytes % 12.8 L Mean Corpuscular Hemoglobin 25.5 L Mean Corpuscular Hemoglobin Concent 30.6 L Mean Corpuscular Volume 83.5 Mean Platelet Volume 10.2 Monocytes # 1.5 H Monocytes % 8.1 Neutrophils # 14.3 H Neutrophils % 76.0 Nucleated Red Blood Cells # 0.0 Nucleated Red Blood Cells % 0.1 H Platelet Count 333 # Potassium Level 3.0 L Red Blood Count 3.21 L Red Cell Distribution Width 20.4 H Sodium Level 139 White Blood Count 18.8 H Medications Medications Current Medications Hydralazine HCl (Apresoline) 10 mg Q4H PRN IV SBP>170; Start 08/14/16 at 15:30 IV Flush (NS 10 ml) 10 ml PRN PRN IV IV PROTOCOL; Start 08/14/16 at 16:00 Collagenase 1 applic 1 applic DAILY TOP Last administered on 08/24/16 10:30; Admin Dose 1 APPLIC; Start 08/15/16 at 09:00 Metronidazole (Flagyl 500 Mg (Pmx)) 100 ml @ 100 mls/hr Q8 IVPB Last administered on 08/24/16 05:09; Admin Dose 100 MLS/HR; Start 08/15/16 at 14:00 Sodium Hypochlorite (Dakin'S (1/4 Strength)) 1 applic BID IRR Last administered on 08/24/16 10:30; Admin Dose 1 APPLIC; Start 08/15/16 at 13:30 Vancomycin HCl (Vancomycin Oral Syringe) 250 mg Q6 PO Last administered on 05:10; Admin Dose 250 MG; Start 08/16/16 at 18:00 Morphine Sulfate 1 mg 1 mg Q3H PRN IV PAIN Last administered on 08/24/16 09:35 ; Admin Dose 1 MG; Start 08/16/16 at 15:00 Potassium Chloride/Dextrose 1,000 ml @ 80 mls/hr [id number] IV Last administered on 08/24/16 02:54; Admin Dose 80 MLS/HR; Start 08/22/16 at 13:30 Potassium Chloride/Sodium Chloride (KCl/NS) 110 ml @ 55 mls/hr ONCE ONCE IVPB ; Start 08/24/16 at 12:30; Stop 08/24/16 at 14:29 VIKASH CASTANEDA Aug 24, 2016 11:37
[2016-08-24] MEDS ORDERED: POTASSIUM CHLORIDE 20 MEQ in SOD CHLORIDE 0.9% 100 ML IVPB ONE (12:30)
--- NOTE | 2016-08-24 13:10 | CONS ---
Date/Time of Note Date/Time of Note DATE: 08/24/16 TIME: 13:10 Assessment/Plan Assessment/Plan Chief Complaint/Hosp Course SUBJECTIVE: No events overnight. No fevers. The patient is alert, looks comfortable. No fevers INDWELLINGS: 1. PEG. 2. PICC line placed on 08/14/2016. 3. George catheter. ANTIMICROBIALS: 1. Flagyl. 2. Oral vancomycin. PHYSICAL EXAMINATION: GENERAL: A fragile, cachectic elderly woman, who is in no distress. HEENT: Head atraumatic, normocephalic. Sclerae anicteric. Buccal mucosa dry. NECK: Supple. Trachea midline. CHEST: Chest rise is symmetrical. Breath sounds diminished to the bases. HEART: S1, S2. ABDOMEN: Soft. Bowel sounds present. EXTREMITIES: Without edema. SKIN: With multiple unstageable decubiti. ASSESSMENT: 1. Resolving sepsis status post shock. 2. Clostridium difficile colitis. 3. Positive urinalysis on admission, with urine culture being negative. 4. Lung cancer 5. ALLERGY TO PENICILLIN. 6. Multiple chronic wounds. 7. Cachexia. 8. Anemia. PLAN: Remains stable, continue abx, local wound care, follow recommendations of consultants. DW staff Problems: Consultation Date/Type/Reason Admit Date/Time Aug 14, 2016 at 10:56 Initial Consult Date 08/14/16 Type of Consultation: ID Referring Provider: DRE LOBATO MD Exam/Review of Systems Vital Signs Vitals Vital Signs Date Time Temp Pulse Resp B/P Pulse Ox O2 Delivery O2 Flow Rate FiO2 08/24/16 12:11 101 08/24/16 11:30 97.9 19 125/57 96 08/24/16 07:40 Nasal Cannula 6.0 Intake and Output 08/23/16 08/23/16 08/24/16 15:00 23:00 07:00 Intake Total 260 ml Output Total 850 ml 800 ml Balance -590 ml -800 ml Results Result Diagram: 08/24/16 0625 08/24/16 0625 Results 24 hrs Laboratory Tests Test 08/24/16 06:25 Anion Gap 12 Basophils # 0.0 Basophils % 0.2 Blood Urea Nitrogen 8 Calcium Level 7.0 L Carbon Dioxide Level 28 Chloride Level 102 Creatinine 0.41 L Eosinophils # 0.2 Eosinophils % 0.9 Glucose Level 55 #L Hematocrit 26.8 L Hemoglobin 8.2 L Lymphocytes # 2.4 Lymphocytes % 12.8 L Mean Corpuscular Hemoglobin 25.5 L Mean Corpuscular Hemoglobin Concent 30.6 L Mean Corpuscular Volume 83.5 Mean Platelet Volume 10.2 Monocytes # 1.5 H Monocytes % 8.1 Neutrophils # 14.3 H Neutrophils % 76.0 Nucleated Red Blood Cells # 0.0 Nucleated Red Blood Cells % 0.1 H Platelet Count 333 # Potassium Level 3.0 L Red Blood Count 3.21 L Red Cell Distribution Width 20.4 H Sodium Level 139 White Blood Count 18.8 H Medications Medications Current Medications Hydralazine HCl (Apresoline) 10 mg Q4H PRN IV SBP>170; Start 08/14/16 at 15:30 IV Flush (NS 10 ml) 10 ml PRN PRN IV IV PROTOCOL; Start 08/14/16 at 16:00 Collagenase 1 applic 1 applic DAILY TOP Last administered on 08/24/16 10:30; Admin Dose 1 APPLIC; Start 08/15/16 at 09:00 Metronidazole (Flagyl 500 Mg (Pmx)) 100 ml @ 100 mls/hr Q8 IVPB Last administered on 08/24/16 05:09; Admin Dose 100 MLS/HR; Start 08/15/16 at 14:00 Sodium Hypochlorite (Dakin'S (1/4 Strength)) 1 applic BID IRR Last administered on 08/24/16 10:30; Admin Dose 1 APPLIC; Start 08/15/16 at 13:30 Vancomycin HCl (Vancomycin Oral Syringe) 250 mg Q6 PO Last administered on 05:10; Admin Dose 250 MG; Start 08/16/16 at 18:00 Morphine Sulfate 1 mg 1 mg Q3H PRN IV PAIN Last administered on 08/24/16 09:35 ; Admin Dose 1 MG; Start 08/16/16 at 15:00 Potassium Chloride/Dextrose 1,000 ml @ 80 mls/hr [id number] IV Last administered on 08/24/16 02:54; Admin Dose 80 MLS/HR; Start 08/22/16 at 13:30 Potassium Chloride/Sodium Chloride (KCl/NS) 110 ml @ 55 mls/hr ONCE ONCE IVPB ; Start 08/24/16 at 12:30; Stop 08/24/16 at 14:29 Pantoprazole (Protonix Tab) 40 mg DAILY@06 PO ; Start 08/25/16 at 06:00 RUBIN MAYEN NP Aug 24, 2016 13:10
--- NOTE | 2016-08-24 21:36 | CONS ---
Date/Time of Note Date/Time of Note DATE: 08/24/16 TIME: 21:35 Assessment/Plan Assessment/Plan Additional Assessment/Plan 1. Acute kidney injury on possible chronic kidney disease, likely secondary to cardiorenal syndrome in the setting of diastolic heart failure. 2. Acute hypernatremia with Na upto 158 2. Status post extubation for acute hypoxemic respiratory failure. 3. Septic shock. 4. Pulmonary hypertension with a preserved ejection fraction on echocardiogram. 5. History of possible lung cancer. PLAN: KCL 20mEQ IV X 1 dose now speech therapy follow up Cr normal today will continue to follow up Consultation Date/Type/Reason Admit Date/Time Aug 14, 2016 at 10:56 Initial Consult Date 08/17/2016 Type of Consultation: NEPHROLOGY Referring Provider: DRE LOBATO MD 24 HR Interval Summary Free Text/Dictation K low , no acute events Exam/Review of Systems Vital Signs Vitals Vital Signs Date Time Temp Pulse Resp B/P Pulse Ox O2 Delivery O2 Flow Rate FiO2 08/24/16 20:29 114 08/24/16 16:45 5.0 08/24/16 16:45 20 Nasal Cannula 08/24/16 15:32 98.0 116/71 100 Intake and Output 08/23/16 08/23/16 08/24/16 15:00 23:00 07:00 Intake Total 260 ml Output Total 850 ml 800 ml Balance -590 ml -800 ml Results Result Diagram: 08/24/16 0625 08/24/16 0625 Results 24 hrs Laboratory Tests Test 08/24/16 06:25 Anion Gap 12 Basophils # 0.0 Basophils % 0.2 Blood Urea Nitrogen 8 Calcium Level 7.0 L Carbon Dioxide Level 28 Chloride Level 102 Creatinine 0.41 L Eosinophils # 0.2 Eosinophils % 0.9 Glucose Level 55 #L Hematocrit 26.8 L Hemoglobin 8.2 L Lymphocytes # 2.4 Lymphocytes % 12.8 L Mean Corpuscular Hemoglobin 25.5 L Mean Corpuscular Hemoglobin Concent 30.6 L Mean Corpuscular Volume 83.5 Mean Platelet Volume 10.2 Monocytes # 1.5 H Monocytes % 8.1 Neutrophils # 14.3 H Neutrophils % 76.0 Nucleated Red Blood Cells # 0.0 Nucleated Red Blood Cells % 0.1 H Platelet Count 333 # Potassium Level 3.0 L Red Blood Count 3.21 L Red Cell Distribution Width 20.4 H Sodium Level 139 White Blood Count 18.8 H Medications Medications Current Medications Hydralazine HCl (Apresoline) 10 mg Q4H PRN IV SBP>170; Start 08/14/16 at 15:30 IV Flush (NS 10 ml) 10 ml PRN PRN IV IV PROTOCOL; Start 08/14/16 at 16:00 Collagenase 1 applic 1 applic DAILY TOP Last administered on 08/24/16 10:30; Admin Dose 1 APPLIC; Start 08/15/16 at 09:00 Metronidazole (Flagyl 500 Mg (Pmx)) 100 ml @ 100 mls/hr Q8 IVPB Last administered on 08/24/16 20:51; Admin Dose 100 MLS/HR; Start 08/15/16 at 14:00 Sodium Hypochlorite (Dakin'S (1/4 Strength)) 1 applic BID IRR Last administered on 08/24/16 20:52; Admin Dose 1 APPLIC; Start 08/15/16 at 13:30 Vancomycin HCl (Vancomycin Oral Syringe) 250 mg Q6 PO Last administered on 17:54; Admin Dose 250 MG; Start 08/16/16 at 18:00 Morphine Sulfate 1 mg 1 mg Q3H PRN IV PAIN Last administered on 08/24/16 18:07 ; Admin Dose 1 MG; Start 08/16/16 at 15:00 Potassium Chloride/Dextrose (D5W + KCl 20 Meq) 1,000 ml @ 80 mls/hr [id number] IV Last administered on 08/24/16 16:04; Admin Dose 80 MLS/HR; Start 08/22/16 at 13 :30 Pantoprazole (Protonix Tab) 40 mg DAILY@06 PO ; Start 08/25/16 at 06:00 DIONNE SAUCEDA MD Aug 24, 2016 21:36
[2016-08-25] VITALS (12 sets, daily range): BP systolic 103–127; BP diastolic 73–82; PULSE 95–106; RESP 15–20
[2016-08-25] MEDS: ALBUTEROL/IPRATROPIUM (NEB) 3 ML AMP HHN SCH ×3 (00:08→16:00)
[2016-08-25] MEDS: D5W + KCL 20 MEQ 1,000 ML IV SCH ×2 (03:43→19:16)
[2016-08-25] MEDS: metroNIDAZOLE 500 MG/NS (PMX) 100 ML IVPB SCH (05:06)
[2016-08-25] MEDS: VANCOMYCIN HCL 250 MG/5ML POSYG PO SCH ×3 (05:06→19:15)
[2016-08-25] MEDS: PANTOPRAZOLE (EC) 40 MG TAB PO SCH (05:06)
[2016-08-25] MEDS: morphine 2 MG INJ IV PRN ×5 (05:50→22:19)
[2016-08-25 05:51] LABS: POTASSIUM 3.8 mmol/L (3.5-5.1)
[2016-08-25 05:52] LABS: INR 1.45; PROTIME 17.7 Sec (12.2-14.2); PT RATIO 1.4
[2016-08-25 05:54] LABS: CREATININE 0.43 mg/dl (0.44-1.00)
[2016-08-25 05:55] LABS: CALCIUM 6.9 mg/dl (8.4-10.2)
[2016-08-25 05:57] LABS: PARTIAL THROMBOPLASTIN TIME 46.5 Sec (25.0-35.0)
[2016-08-25] MEDS: LEVOTHYROXINE 125 MCG TAB PO SCH (08:27)
[2016-08-25] MEDS: SODIUM HYPOCHLORITE 0.125% 473 ML BTL IRR SCH ×2 (08:49→21:00)
[2016-08-25] MEDS: COLLAGENASE 30 GM TUBE TOP SCH (08:50)
--- NOTE | 2016-08-25 12:00 | CONS ---
Date/Time of Note Date/Time of Note DATE: 08/25/16 TIME: 11:58 Assessment/Plan Assessment/Plan Additional Assessment/Plan 1. Acute kidney injury on possible chronic kidney disease, likely secondary to cardiorenal syndrome in the setting of diastolic heart failure. 2. Acute hypernatremia with Na upto 158 2. Status post extubation for acute hypoxemic respiratory failure. 3. Septic shock. 4. Pulmonary hypertension with a preserved ejection fraction on echocardiogram. 5. History of possible lung cancer. PLAN: magnesium sulfate 2 gram IV x 1 dose today Cr normal today will continue to follow up Consultation Date/Type/Reason Admit Date/Time Aug 14, 2016 at 10:56 Initial Consult Date 08/17/2016 Type of Consultation: NEPHROLOGY Referring Provider: DRE LOBATO MD 24 HR Interval Summary Free Text/Dictation pt stable no acute events Exam/Review of Systems Vital Signs Vitals Vital Signs Date Time Temp Pulse Resp B/P Pulse Ox O2 Delivery O2 Flow Rate FiO2 08/25/16 11:52 98.4 106 20 127/78 96 08/25/16 07:59 Nasal Cannula 5.0 Intake and Output 08/24/16 08/24/16 08/25/16 15:00 23:00 07:00 Intake Total 825 ml 1600 ml Output Total 600 ml 800 ml Balance 225 ml 800 ml Exam GENERAL: Awake HEENT: Normal. Oropharynx clear. NECK: Jugular venous distention up to the mid neck. LUNGS: Decreased breath sounds at both lung bases, bibasilar rales present. HEART: S1, S2, tachycardia, no murmur. ABDOMEN: Soft, nontender, nondistended. Bowel sounds are present. Results Result Diagram: 08/24/16 0625 08/25/16 0420 Results 24 hrs Laboratory Tests Test 08/25/16 04:20 Activated Partial Thromboplast Time 46.5 H Anion Gap 11 Blood Urea Nitrogen 11 Calcium Level 6.9 L Carbon Dioxide Level 28 Chloride Level 99 Creatinine 0.43 L Glucose Level 82 INR International Normalized Ratio 1.45 Magnesium Level 1.4 L Potassium Level 3.8 Prothrombin Time 17.7 H Prothrombin Time Ratio 1.4 Sodium Level 134 L Medications Medications Current Medications Hydralazine HCl (Apresoline) 10 mg Q4H PRN IV SBP>170; Start 08/14/16 at 15:30 IV Flush (NS 10 ml) 10 ml PRN PRN IV IV PROTOCOL; Start 08/14/16 at 16:00 Collagenase 1 applic 1 applic DAILY TOP Last administered on 08/25/16 08:50; Admin Dose 1 APPLIC; Start 08/15/16 at 09:00 Metronidazole (Flagyl 500 Mg (Pmx)) 100 ml @ 100 mls/hr Q8 IVPB Last administered on 08/25/16 05:06; Admin Dose 100 MLS/HR; Start 08/15/16 at 14:00 Sodium Hypochlorite (Dakin'S (1/4 Strength)) 1 applic BID IRR Last administered on 08/25/16 08:49; Admin Dose 1 APPLIC; Start 08/15/16 at 13:30 Vancomycin HCl (Vancomycin Oral Syringe) 250 mg Q6 PO Last administered on 08/25 05:06; Admin Dose 250 MG; Start 08/16/16 at 18:00 Morphine Sulfate 1 mg 1 mg Q3H PRN IV PAIN Last administered on 08/25/16 08:28 ; Admin Dose 1 MG; Start 08/16/16 at 15:00 Potassium Chloride/Dextrose (D5W + KCl 20 Meq) 1,000 ml @ 80 mls/hr [id number] IV Last administered on 08/24/16 23:54; Admin Dose 80 MLS/HR; Start 08/22/16 at 13 :30 Pantoprazole (Protonix Tab) 40 mg DAILY@06 PO Last administered on 08/25/16 05 :06; Admin Dose 40 MG; Start 08/25/16 at 06:00 DIONNE SAUCEDA MD Aug 25, 2016 12:00
--- NOTE | 2016-08-25 12:12 | CONS ---
Date/Time of Note Date/Time of Note DATE: 08/25/16 TIME: 12:11 Assessment/Plan Assessment/Plan Chief Complaint/Hosp Course SUBJECTIVE: No events overnight. No fevers. Looks comfortable. INDWELLINGS: 1. PEG. 2. PICC line placed on 08/14/2016. 3. George catheter. ANTIMICROBIALS: 1. Flagyl. 2. Oral vancomycin. PHYSICAL EXAMINATION: GENERAL: A fragile, cachectic elderly woman, who is in no distress. HEENT: Head atraumatic, normocephalic. Sclerae anicteric. Buccal mucosa dry. NECK: Supple. Trachea midline. CHEST: Chest rise is symmetrical. Breath sounds diminished to the bases. HEART: S1, S2. ABDOMEN: Soft. Bowel sounds present. EXTREMITIES: Without edema. SKIN: With multiple unstageable decubiti. ASSESSMENT: 1. Resolving sepsis status post shock. 2. Clostridium difficile colitis. 3. Positive urinalysis on admission, with urine culture being negative. 4. Lung cancer 5. ALLERGY TO PENICILLIN. 6. Multiple chronic wounds. 7. Cachexia. 8. Anemia. PLAN: Remains stable, dc Flagyl, continue Vanco, aspiration precautions, local wound care DW staff Problems: Consultation Date/Type/Reason Admit Date/Time Aug 14, 2016 at 10:56 Initial Consult Date 08/14/16 Type of Consultation: id Referring Provider: DRE LOBATO MD Exam/Review of Systems Vital Signs Vitals Vital Signs Date Time Temp Pulse Resp B/P Pulse Ox O2 Delivery O2 Flow Rate FiO2 08/25/16 12:09 105 08/25/16 11:52 98.4 20 127/78 96 08/25/16 07:59 Nasal Cannula 5.0 Intake and Output 08/24/16 08/24/16 08/25/16 15:00 23:00 07:00 Intake Total 825 ml 1600 ml Output Total 600 ml 800 ml Balance 225 ml 800 ml Results Result Diagram: 08/24/16 0625 08/25/16 0420 Results 24 hrs Laboratory Tests Test 08/25/16 04:20 Activated Partial Thromboplast Time 46.5 H Anion Gap 11 Blood Urea Nitrogen 11 Calcium Level 6.9 L Carbon Dioxide Level 28 Chloride Level 99 Creatinine 0.43 L Glucose Level 82 INR International Normalized Ratio 1.45 Magnesium Level 1.4 L Potassium Level 3.8 Prothrombin Time 17.7 H Prothrombin Time Ratio 1.4 Sodium Level 134 L Medications Medications Current Medications Hydralazine HCl (Apresoline) 10 mg Q4H PRN IV SBP>170; Start 08/14/16 at 15:30 IV Flush (NS 10 ml) 10 ml PRN PRN IV IV PROTOCOL; Start 08/14/16 at 16:00 Collagenase 1 applic 1 applic DAILY TOP Last administered on 08/25/16 08:50; Admin Dose 1 APPLIC; Start 08/15/16 at 09:00 Metronidazole (Flagyl 500 Mg (Pmx)) 100 ml @ 100 mls/hr Q8 IVPB Last administered on 08/25/16 05:06; Admin Dose 100 MLS/HR; Start 08/15/16 at 14:00 Sodium Hypochlorite (Dakin'S (1/4 Strength)) 1 applic BID IRR Last administered on 08/25/16 08:49; Admin Dose 1 APPLIC; Start 08/15/16 at 13:30 Vancomycin HCl (Vancomycin Oral Syringe) 250 mg Q6 PO Last administered on 08/25 05:06; Admin Dose 250 MG; Start 08/16/16 at 18:00 Morphine Sulfate 1 mg 1 mg Q3H PRN IV PAIN Last administered on 08/25/16 08:28 ; Admin Dose 1 MG; Start 08/16/16 at 15:00 Potassium Chloride/Dextrose (D5W + KCl 20 Meq) 1,000 ml @ 80 mls/hr [id number] IV Last administered on 08/24/16 23:54; Admin Dose 80 MLS/HR; Start 08/22/16 at 13 :30 Pantoprazole 40 mg 40 mg DAILY@06 PO Last administered on 08/25/16 05:06; Admin Dose 40 MG; Start 08/25/16 at 06:00 Magnesium Sulfate (Magnesium Sulfate 2 Gm/50 ml) 50 ml @ 25 mls/hr ONCE ONCE IVPB ; Start 08/25/16 at 13:00; Stop 08/25/16 at 14:59 RUBIN MAYEN NP Aug 25, 2016 12:12
--- NOTE | 2016-08-25 12:21 | CONS ---
Date/Time of Note Date/Time of Note DATE: 08/25/16 TIME: 12:19 Assessment/Plan Assessment/Plan Additional Assessment/Plan Sepsis Diastolic congestive heart failure, compensated Pulmonary hypertension Preserved ejection fraction Tricuspid valve regurgitation Lung cancer -Patient with no evidence of decompensated congestive heart failure. Fluid management as per our nephrology colleagues. Blood pressure trend remains stable. No new cardiac orders at the current time. Consultation Date/Type/Reason Admit Date/Time Aug 14, 2016 at 10:56 Initial Consult Date 08/14/16 Type of Consultation: cv Referring Provider: DRE LOBATO MD 24 HR Interval Summary Free Text/Dictation Patient feeling much better, denies chest pain or shortness of breath Exam/Review of Systems Vital Signs Vitals Vital Signs Date Time Temp Pulse Resp B/P Pulse Ox O2 Delivery O2 Flow Rate FiO2 08/25/16 12:09 105 08/25/16 11:52 98.4 20 127/78 96 08/25/16 07:59 Nasal Cannula 5.0 Intake and Output 08/24/16 08/24/16 08/25/16 15:00 23:00 07:00 Intake Total 825 ml 1600 ml Output Total 600 ml 800 ml Balance 225 ml 800 ml Exam No apparent distress Constitutional: alert, frail, oriented Head: normocephalic Neck: supple Respiratory: other (Coarse breath sounds bilaterally, no wheezing) Cardiovascular: other (S1-S2 heard), regular rate and rhythm Gastrointestinal: bowel sounds, non-tender, other (No guarding, PEG), soft Extremities: other (No edema) Results Result Diagram: 08/24/16 0625 08/25/16 0420 Results 24 hrs Laboratory Tests Test 08/25/16 04:20 Activated Partial Thromboplast Time 46.5 H Anion Gap 11 Blood Urea Nitrogen 11 Calcium Level 6.9 L Carbon Dioxide Level 28 Chloride Level 99 Creatinine 0.43 L Glucose Level 82 INR International Normalized Ratio 1.45 Magnesium Level 1.4 L Potassium Level 3.8 Prothrombin Time 17.7 H Prothrombin Time Ratio 1.4 Sodium Level 134 L Medications Medications Current Medications Hydralazine HCl (Apresoline) 10 mg Q4H PRN IV SBP>170; Start 08/14/16 at 15:30 IV Flush (NS 10 ml) 10 ml PRN PRN IV IV PROTOCOL; Start 08/14/16 at 16:00 Collagenase (Santyl) 1 applic DAILY TOP Last administered on 08/25/16 08:50; Admin Dose 1 APPLIC; Start 08/15/16 at 09:00 Sodium Hypochlorite (Dakin'S (1/4 Strength)) 1 applic BID IRR Last administered on 08/25/16 08:49; Admin Dose 1 APPLIC; Start 08/15/16 at 13:30 Vancomycin HCl (Vancomycin Oral Syringe) 250 mg Q6 PO Last administered on 08/25 05:06; Admin Dose 250 MG; Start 08/16/16 at 18:00 Morphine Sulfate 1 mg 1 mg Q3H PRN IV PAIN Last administered on 08/25/16 08:28 ; Admin Dose 1 MG; Start 08/16/16 at 15:00 Potassium Chloride/Dextrose (D5W + KCl 20 Meq) 1,000 ml @ 80 mls/hr [id number] IV Last administered on 08/24/16 23:54; Admin Dose 80 MLS/HR; Start 08/22/16 at 13 :30 Pantoprazole 40 mg 40 mg DAILY@06 PO Last administered on 08/25/16 05:06; Admin Dose 40 MG; Start 08/25/16 at 06:00 Magnesium Sulfate (Magnesium Sulfate 2 Gm/50 ml) 50 ml @ 25 mls/hr ONCE ONCE IVPB ; Start 08/25/16 at 13:00; Stop 08/25/16 at 14:59 Artemio Tipton DO Aug 25, 2016 12:21
--- NOTE | 2016-08-25 12:41 | PN ---
Date/Time of Note Date/Time of Note DATE: 08/25/16 TIME: 12:37 Assessment/Plan VTE Prophylaxis VTE Prophylaxis Intervention: SCD's Lines/Catheters IV Catheter Type (from [facility]): PICC Line Central line still needed: Yes Urinary Cath still in place: Yes Reason Cath still needed: urinary retention Assessment/Plan Chief Complaint/Hosp Course ASSESSMENT AND PLAN: - Acute hypoxic respiratory failure secondary to pneumonia, chronic obstructive pulmonary disease, and malignancy. Dr. Neri is following in pulmonary consultation. Continue bronchodilators, pulmonary toilet. Continue broad spectrum antibiotics. - Health care acquired pneumonia, status post treatment. Dr. Coleman is following in infectious disease consultation. - Severe sepsis with shock, resolved. - C-diff colitis. continue Vanco. - Hypernatremia, continue free water via GT. Dr. Zapata is following a nephrology consultation. - Chronic obstructive pulmonary disease. Continue bronchodilators. - Multiple decubitus ulcers with history of debridement. Continue wound care. - Chronic urinary retention. - Left lung squamous cell carcinoma. - Anemia of chronic disease. - Congestive heart failure. Dr. Tipton is following the patient in cardiology consultation. - Coagulopathy. - Dysphagia, status post G-tube placement on 08/[address] Gonzales, GI. Continue Pepcid for peptic ulcer disease prophylaxis and sequential compression device for deep venous thrombosis prophylaxis. Further recommendations based on clinical course. Plan of care discussed with Dr. Dozier. Problems: Subjective 24 Hr Interval Summary Free Text/Dictation Patient is lethargic but arousable, remains afebrile, sinus rhythm -sinus tach on telemetry. Exam/Review of Systems Vital Signs Vitals Vital Signs Date Time Temp Pulse Resp B/P Pulse Ox O2 Delivery O2 Flow Rate FiO2 08/25/16 12:09 105 08/25/16 11:52 98.4 20 127/78 96 08/25/16 07:59 Nasal Cannula 5.0 Intake and Output 08/24/16 08/24/16 08/25/16 15:00 23:00 07:00 Intake Total 825 ml 1600 ml Output Total 600 ml 800 ml Balance 225 ml 800 ml Exam PHYSICAL ASSESSMENT: GENERAL: Fragile, cachectic, elderly female, currently on supplemental oxygen. HEENT: Head is atraumatic, normocephalic. Pupils equal, round, reactive to light and accommodation. NECK: Supple, no thyromegaly. CHEST: Patient has diminished breath sounds with diminished air entry bilaterally. CARDIOVASCULAR: Normal S1, S2. No murmurs, gallops, clicks, rubs noted. ABDOMEN: Flat, nondistended, nontender. Bowel sounds present. GT. EXTREMITIES: There is no edema, clubbing, cyanosis. Pulses equal bilaterally 2 +. SKIN: Patient has multiple pressure ulcers including sacral wound. NEUROLOGICAL: Lethargic but easily arousable. Results Result Diagram: 08/24/16 0625 08/25/16 0420 Results 24 hrs Laboratory Tests Test 08/25/16 04:20 Activated Partial Thromboplast Time 46.5 H Anion Gap 11 Blood Urea Nitrogen 11 Calcium Level 6.9 L Carbon Dioxide Level 28 Chloride Level 99 Creatinine 0.43 L Glucose Level 82 INR International Normalized Ratio 1.45 Magnesium Level 1.4 L Potassium Level 3.8 Prothrombin Time 17.7 H Prothrombin Time Ratio 1.4 Sodium Level 134 L Medications Medications Current Medications Hydralazine HCl (Apresoline) 10 mg Q4H PRN IV SBP>170; Start 08/14/16 at 15:30 IV Flush (NS 10 ml) 10 ml PRN PRN IV IV PROTOCOL; Start 08/14/16 at 16:00 Collagenase (Santyl) 1 applic DAILY TOP Last administered on 08/25/16 08:50; Admin Dose 1 APPLIC; Start 08/15/16 at 09:00 Sodium Hypochlorite (Dakin'S (1/4 Strength)) 1 applic BID IRR Last administered on 08/25/16 08:49; Admin Dose 1 APPLIC; Start 08/15/16 at 13:30 Vancomycin HCl (Vancomycin Oral Syringe) 250 mg Q6 PO Last administered on 08/25 05:06; Admin Dose 250 MG; Start 08/16/16 at 18:00 Morphine Sulfate 1 mg 1 mg Q3H PRN IV PAIN Last administered on 08/25/16 08:28 ; Admin Dose 1 MG; Start 08/16/16 at 15:00 Potassium Chloride/Dextrose (D5W + KCl 20 Meq) 1,000 ml @ 80 mls/hr [id number] IV Last administered on 08/24/16 23:54; Admin Dose 80 MLS/HR; Start 08/22/16 at 13 :30 Pantoprazole 40 mg 40 mg DAILY@06 PO Last administered on 08/25/16t 05:06; Admin Dose 40 MG; Start 08/25/16 at 06:00 Magnesium Sulfate (Magnesium Sulfate 2 Gm/50 ml) 50 ml @ 25 mls/hr ONCE ONCE IVPB ; Start 08/25/16 at 13:00; Stop 08/25/16 at 14:59 REBECCA ISLAS Aug 25, 2016 12:41
[2016-08-25] MEDS ORDERED: MAGNESIUM SULFATE 2 GM/50 ML 50 ML IVPB ONE (13:00)
--- NOTE | 2016-08-25 13:35 | PN ---
DATE: 08/25/2016 SUBJECTIVE: The patient remains stable this morning, comfortable. PHYSICAL EXAMINATION: VITAL SIGNS: Temperature 98, pulse is 100, blood pressure 127/70, O2 saturation 96% on 5 liters. NECK: Supple, no JVD or lymphadenopathy. CARDIAC: S1, S2, no added sounds or murmurs. CHEST: Diminished air entry bilaterally. ABDOMEN: Soft, nontender. No guarding or rebound. EXTREMITIES: No cyanosis, clubbing, edema. NEUROLOGIC: Generalized weakness. LABORATORY DATA: White count 18.8, hemoglobin 8.8. Chemistry within normal limits. IMPRESSION: 1. History of lung cancer. 2. Status post hypoxemic respiratory failure. 3. Aspiration pneumonia. 4. Cachexia. 5. Decubitus ulcers. PLAN: 1. Continue wound care. 2. Continue supplemental O2. 3. Continue aspiration precautions. 4. DVT and GI prophylaxis. Please consider palliative care consult as overall prognosis is very poor, and the patient otherwise make significant improvement at this point. Dictated By: CASSIE MORALEZ/SANDER Conf#: [id number] DID#: [id number]
[2016-08-26] VITALS (11 sets, daily range): BP systolic 100–132; BP diastolic 56–89; PULSE 100–112; RESP 17–20
[2016-08-26] MEDS: ALBUTEROL/IPRATROPIUM (NEB) 3 ML AMP HHN SCH ×3 (00:34→16:58)
[2016-08-26] MEDS: VANCOMYCIN HCL 250 MG/5ML POSYG PO SCH ×5 (02:16→23:33)
[2016-08-26] MEDS: morphine 2 MG INJ IV PRN ×6 (02:36→20:54)
[2016-08-26] MEDS: D5W + KCL 20 MEQ 1,000 ML IV SCH ×2 (06:08→17:05)
[2016-08-26] MEDS: PANTOPRAZOLE (EC) 40 MG TAB PO SCH (06:08)
[2016-08-26] MEDS: LEVOTHYROXINE 125 MCG TAB PO SCH (06:08)
[2016-08-26] MEDS: SODIUM HYPOCHLORITE 0.125% 473 ML BTL IRR SCH ×3 (06:10→20:57)
[2016-08-26] MEDS: COLLAGENASE 30 GM TUBE TOP SCH ×2 (06:10→09:09)
[2016-08-26 06:48] LABS: ADD SCAN DIFF NO
[2016-08-26 07:02] LABS: BASOPHILS % 0.2 % (0.0-2.0); EOSINOPHILS # 0.2 10^3/ul (0.0-0.5); EOSINOPHILS % 1.1 % (0.0-7.0); HEMATOCRIT 24.8 % (37.0-47.0); HEMOGLOBIN 7.5 g/dl (12.0-16.0); LYMPHOCYTES % 11.6 % (15.0-51.0); MEAN CORPUSCULAR HEMOGLOBIN 25.3 pg (29.0-33.0); MEAN CORPUSCULAR HGB CONC 30.2 g/dl (32.0-37.0); MEAN CORPUSCULAR VOLUME 83.5 fl (82.0-101.0); MEAN PLATELET VOLUME 9.7 fl (7.4-10.4); MONOCYTE # 1.5 10^3/ul (0.3-0.9); MONOCYTES % 8.3 % (0.0-11.0); NEUTROPHIL # 13.6 10^3/ul (1.6-7.5); NEUTROPHILS % 77.4 % (39.0-77.0); PLATELET COUNT 480 10^3/UL (140-415); RED BLOOD COUNT 2.97 10^6/ul (4.20-5.40); RED CELL DISTRIBUTION WIDTH 19.9 % (11.5-14.5); WHITE BLOOD COUNT 17.6 10^3/ul (4.8-10.8)
[2016-08-26 07:09] LABS: POTASSIUM 3.6 mmol/L (3.5-5.1)
[2016-08-26 07:12] LABS: CREATININE 0.38 mg/dl (0.44-1.00)
[2016-08-26 07:13] LABS: CALCIUM 6.9 mg/dl (8.4-10.2)
--- NOTE | 2016-08-26 12:29 | CONS ---
Date/Time of Note Date/Time of Note DATE: 08/26/16 TIME: 12:28 Assessment/Plan Assessment/Plan Additional Assessment/Plan 1. Acute kidney injury on possible chronic kidney disease, likely secondary to cardiorenal syndrome in the setting of diastolic heart failure. 2. Acute hypernatremia with Na upto 158 2. Status post extubation for acute hypoxemic respiratory failure. 3. Septic shock. 4. Pulmonary hypertension with a preserved ejection fraction on echocardiogram. 5. History of possible lung cancer. PLAN: monitor Na,mag replaced yesterday Cr normal today will continue to follow up Consultation Date/Type/Reason Admit Date/Time Aug 14, 2016 at 10:56 Initial Consult Date 08/17/2016 Type of Consultation: NEPHROLOGY Referring Provider: DRE LOBATO MD 24 HR Interval Summary Free Text/Dictation pt stable, Na dropped to 133 Exam/Review of Systems Vital Signs Vitals Vital Signs Date Time Temp Pulse Resp B/P Pulse Ox O2 Delivery O2 Flow Rate FiO2 08/26/16 11:56 98.0 105 18 105/59 97 08/26/16 08:30 Nasal Cannula 5.0 Intake and Output 08/25/16 08/25/16 08/26/16 15:00 23:00 07:00 Intake Total 1800 ml 2530 ml Output Total 1200 ml 1600 ml Balance 600 ml 930 ml Exam GENERAL: Awake HEENT: Normal. Oropharynx clear. NECK: Jugular venous distention up to the mid neck. LUNGS: Decreased breath sounds at both lung bases, bibasilar rales present. HEART: S1, S2, tachycardia, no murmur. ABDOMEN: Soft, nontender, nondistended. Bowel sounds are present. Results Result Diagram: 08/26/16 0630 08/26/16 0630 Results 24 hrs Laboratory Tests Test 08/26/16 06:30 Anion Gap 11 Basophils # 0.0 Basophils % 0.2 Blood Urea Nitrogen 11 Calcium Level 6.9 L Carbon Dioxide Level 28 Chloride Level 98 Creatinine 0.38 L Eosinophils # 0.2 Eosinophils % 1.1 Glucose Level 97 Hematocrit 24.8 L Hemoglobin 7.5 L Lymphocytes # 2.0 Lymphocytes % 11.6 L Mean Corpuscular Hemoglobin 25.3 L Mean Corpuscular Hemoglobin Concent 30.2 L Mean Corpuscular Volume 83.5 Mean Platelet Volume 9.7 Monocytes # 1.5 H Monocytes % 8.3 Neutrophils # 13.6 H Neutrophils % 77.4 H Nucleated Red Blood Cells # 0.0 Nucleated Red Blood Cells % 0.0 Platelet Count 480 #H Potassium Level 3.6 Red Blood Count 2.97 L Red Cell Distribution Width 19.9 H Sodium Level 133 L White Blood Count 17.6 H Medications Medications Current Medications Hydralazine HCl (Apresoline) 10 mg Q4H PRN IV SBP>170; Start 08/14/16 at 15:30 IV Flush (NS 10 ml) 10 ml PRN PRN IV IV PROTOCOL; Start 08/14/16 at 16:00 Collagenase (Santyl) 1 applic DAILY TOP Last administered on 08/26/16 09:09; Admin Dose 1 APPLIC; Start 08/15/16 at 09:00 Sodium Hypochlorite (Dakin'S (1/4 Strength)) 1 applic BID IRR Last administered on 08/26/16 09:09; Admin Dose 1 APPLIC; Start 08/15/16 at 13:30 Vancomycin HCl (Vancomycin Oral Syringe) 250 mg Q6 PO Last administered on 08/26 12:06; Admin Dose 250 MG; Start 08/16/16 at 18:00 Morphine Sulfate 1 mg 1 mg Q3H PRN IV PAIN Last administered on 08/26/16 12:06 ; Admin Dose 1 MG; Start 08/16/16 at 15:00 Potassium Chloride/Dextrose (D5W + KCl 20 Meq) 1,000 ml @ 80 mls/hr [id number] IV Last administered on 08/26/16 06:08; Admin Dose 80 MLS/HR; Start 08/22/16 at 13:30 Pantoprazole (Protonix Tab) 40 mg DAILY@06 PO Last administered on 08/26/16 06 :08; Admin Dose 40 MG; Start 08/25/16 at 06:00 DIONNE SAUCEDA MD Aug 26, 2016 12:29
[2016-08-26 13:50] LABS: HYPOCHROMASIA 1+; POLYCHROMASIA 1+; TARGET CELLS OCCASIONAL
--- NOTE | 2016-08-26 17:40 | PN ---
Date/Time of Note Date/Time of Note DATE: 08/26/16 TIME: 17:39 Assessment/Plan VTE Prophylaxis VTE Prophylaxis Intervention: other Lines/Catheters [facility] PICC Line Urinary Cath still in place: Yes Assessment/Plan Assessment/Plan - Acute hypoxic respiratory failure secondary to pneumonia, chronic obstructive pulmonary disease, and malignancy. Dr. Neri is following in pulmonary consultation. Continue bronchodilators, pulmonary toilet. Continue broad spectrum antibiotics. - Health care acquired pneumonia, status post treatment. Dr. Coleman is following in infectious disease consultation. - Severe sepsis with shock, resolved. - C-diff colitis. continue Vanco. - Hypernatremia, continue free water via GT. Dr. Zapata is following a nephrology consultation. - Chronic obstructive pulmonary disease. Continue bronchodilators. - Multiple decubitus ulcers with history of debridement. Continue wound care. - Chronic urinary retention. - Left lung squamous cell carcinoma. - Anemia of chronic disease. - Congestive heart failure. Dr. Tipton is following the patient in cardiology consultation. - Coagulopathy. - Dysphagia, status post G-tube placement on 08/[address] Gonzales, GI. Continue Pepcid for peptic ulcer disease prophylaxis and sequential compression device for deep venous thrombosis prophylaxis. Further recommendations based on clinical course. Plan of care discussed with Dr. Dozier. Subjective 24 Hr Interval Summary Constitutional: improved Eyes: no complaints ENT: no complaints Respiratory: no complaints Cardiovascular: no complaints Gastrointestinal: no complaints Genitourinary: no complaints Musculoskeletal: no complaints Skin: no complaints Neurologic: no complaints Exam/Review of Systems Vital Signs Vitals Vital Signs Date Time Temp Pulse Resp B/P Pulse Ox O2 Delivery O2 Flow Rate FiO2 08/26/16 16:59 101 20 98 Nasal Cannula 4.0 08/26/16 16:24 97.6 132/82 Intake and Output 08/25/16 08/25/16 08/26/16 15:00 23:00 07:00 Intake Total 1800 ml 2530 ml Output Total 1200 ml 1600 ml Balance 600 ml 930 ml Exam Constitutional: alert Psych: nl mood/affect Eyes: EOMI ENMT: nl external ears & nose Neck: non-tender Respiratory: clear to auscultation Cardiovascular: nl pulses Gastrointestinal: non-tender, soft Musculoskeletal: other Extremities: normal pulses Neurological: nl mental status, nl speech Skin: other Lymph: nontender Results Result Diagram: 08/26/16 0630 08/26/16 0630 Results 24 hrs Laboratory Tests Test 08/26/16 06:30 Anion Gap 11 Basophils # 0.0 Basophils % 0.2 Blood Urea Nitrogen 11 Calcium Level 6.9 L Carbon Dioxide Level 28 Chloride Level 98 Creatinine 0.38 L Eosinophils # 0.2 Eosinophils % 1.1 Glucose Level 97 Hematocrit 24.8 L Hemoglobin 7.5 L Hypochromasia 1+ Lymphocytes # 2.0 Lymphocytes % 11.6 L Mean Corpuscular Hemoglobin 25.3 L Mean Corpuscular Hemoglobin Concent 30.2 L Mean Corpuscular Volume 83.5 Mean Platelet Volume 9.7 Monocytes # 1.5 H Monocytes % 8.3 Neutrophils # 13.6 H Neutrophils % 77.4 H Nucleated Red Blood Cells # 0.0 Nucleated Red Blood Cells % 0.0 Platelet Count 480 #H Polychromasia 1+ Potassium Level 3.6 Red Blood Count 2.97 L Red Cell Distribution Width 19.9 H Sodium Level 133 L Target Cells OCCASIONAL White Blood Count 17.6 H Medications Medications Current Medications Hydralazine HCl (Apresoline) 10 mg Q4H PRN IV SBP>170; Start 08/14/16 at 15:30 IV Flush (NS 10 ml) 10 ml PRN PRN IV IV PROTOCOL; Start 08/14/16 at 16:00 Collagenase (Santyl) 1 applic DAILY TOP Last administered on 08/26/16 09:09; Admin Dose 1 APPLIC; Start 08/15/16 at 09:00 Sodium Hypochlorite (Dakin'S (1/4 Strength)) 1 applic BID IRR Last administered on 08/26/16 09:09; Admin Dose 1 APPLIC; Start 08/15/16 at 13:30 Vancomycin HCl (Vancomycin Oral Syringe) 250 mg Q6 PO Last administered on 08/26 17:34; Admin Dose 250 MG; Start 08/16/16 at 18:00 Morphine Sulfate 1 mg 1 mg Q3H PRN IV PAIN Last administered on 08/26/16 15:32 ; Admin Dose 1 MG; Start 08/16/16 at 15:00 Potassium Chloride/Dextrose (D5W + KCl 20 Meq) 1,000 ml @ 80 mls/hr [id number] IV Last administered on 08/26/16 17:05; Admin Dose 80 MLS/HR; Start 08/22/16 at 13:30 Pantoprazole (Protonix Tab) 40 mg DAILY@06 PO Last administered on 08/26/16 06 :08; Admin Dose 40 MG; Start 08/25/16 at 06:00 VIKASH CASATNEDA Aug 26, 2016 17:40
--- NOTE | 2016-08-26 19:42 | CONS ---
Date/Time of Note Date/Time of Note DATE: 08/26/16 TIME: 19:34 Assessment/Plan Assessment/Plan Chief Complaint/Hosp Course ID PROGRESS NOTE 24H INTERVAL SUMMARY * Awake, alert, confused, calm however resists exam * No fevers, WBC elevated PHYSICAL EXAMINATION: GENERAL: This is a chronically ill-appearing, frail 65 yo F HEENT: Unremarkable -- NECK: Supple, trachea midline. CHEST: Rise symmetrical without dyspnea ABDOMEN: Refuses exam EXTREMITIES: Moves all extremities, Without cyanosis. ID ASSESSMENT: 65 yo F w/PMHx Dementia, CVA(chronic left thalamic lacunar infarction), Tobacco/ COPD-Emphysema/Lung Cancer re-admit with: 1. Resolving sepsis status post shock. 2. Clostridium difficile colitis=> recurrent problem 3. Positive urinalysis on admission, with urine culture being negative. * Hx of recurrent UTIs 4. Urinary retention with chronic George=>Probable neurogenic bladder 5. Status post acute respiratory failure secondary to chronic obstructive pulmonary disease exacerbation. 6. Chronic debility w/Cachexia. 7. Multiple decubitus with a history of debridement. 8. H/O DJD spine -> Hx of lumbar spinal fusion 9 .H/O Hypertension w/HTN heart disease mild-mod cLVH on ECHO w/diastolic dysfunction STG I (+) MRSA Nares screen ->Bactroban ALLERGY: PENICILLIN. CURRENT ABX: Vanco PO + Bactroban to nares s/p Flagyl ID PLAN: * Continue local wound care * Continue ABX . Problems: Consultation Date/Type/Reason Admit Date/Time Aug 14, 2016 at 10:56 Initial Consult Date 08/14/16 Type of Consultation: ID Referring Provider: DRE LOBATO MD Exam/Review of Systems Vital Signs Vitals Vital Signs Date Time Temp Pulse Resp B/P Pulse Ox O2 Delivery O2 Flow Rate FiO2 08/26/16 16:59 101 20 98 Nasal Cannula 4.0 08/26/16 16:24 97.6 132/82 Intake and Output 08/25/16 08/25/16 08/26/16 15:00 23:00 07:00 Intake Total 1800 ml 2530 ml Output Total 1200 ml 1600 ml Balance 600 ml 930 ml Results Result Diagram: 08/26/16 0630 08/26/16 0630 Results 24 hrs Laboratory Tests Test 08/26/16 06:30 Anion Gap 11 Basophils # 0.0 Basophils % 0.2 Blood Urea Nitrogen 11 Calcium Level 6.9 L Carbon Dioxide Level 28 Chloride Level 98 Creatinine 0.38 L Eosinophils # 0.2 Eosinophils % 1.1 Glucose Level 97 Hematocrit 24.8 L Hemoglobin 7.5 L Hypochromasia 1+ Lymphocytes # 2.0 Lymphocytes % 11.6 L Mean Corpuscular Hemoglobin 25.3 L Mean Corpuscular Hemoglobin Concent 30.2 L Mean Corpuscular Volume 83.5 Mean Platelet Volume 9.7 Monocytes # 1.5 H Monocytes % 8.3 Neutrophils # 13.6 H Neutrophils % 77.4 H Nucleated Red Blood Cells # 0.0 Nucleated Red Blood Cells % 0.0 Platelet Count 480 #H Polychromasia 1+ Potassium Level 3.6 Red Blood Count 2.97 L Red Cell Distribution Width 19.9 H Sodium Level 133 L Target Cells OCCASIONAL White Blood Count 17.6 H Medications Medications Current Medications Hydralazine HCl (Apresoline) 10 mg Q4H PRN IV SBP>170; Start 08/14/16 at 15:30 IV Flush (NS 10 ml) 10 ml PRN PRN IV IV PROTOCOL; Start 08/14/16 at 16:00 Collagenase (Santyl) 1 applic DAILY TOP Last administered on 08/26/16 09:09; Admin Dose 1 APPLIC; Start 08/15/16 at 09:00 Sodium Hypochlorite (Dakin'S (1/4 Strength)) 1 applic BID IRR Last administered on 08/26/16 09:09; Admin Dose 1 APPLIC; Start 08/15/16 at 13:30 Vancomycin HCl (Vancomycin Oral Syringe) 250 mg Q6 PO Last administered on 08/26 17:34; Admin Dose 250 MG; Start 08/16/16 at 18:00 Morphine Sulfate 1 mg 1 mg Q3H PRN IV PAIN Last administered on 08/26/16 15:32 ; Admin Dose 1 MG; Start 08/16/16 at 15:00 Potassium Chloride/Dextrose (D5W + KCl 20 Meq) 1,000 ml @ 80 mls/hr [id number] IV Last administered on 08/26/16 17:05; Admin Dose 80 MLS/HR; Start 08/22/16 at 13:30 Pantoprazole (Protonix Tab) 40 mg DAILY@06 PO Last administered on 08/26/16t 06 :08; Admin Dose 40 MG; Start 08/25/16 at 06:00 ALMA ROSARIO NP Aug 26, 2016 19:42
[2016-08-26] MEDS: MUPIROCIN 2% 22 GM OINT TOP SCH (20:54)
[2016-08-27] VITALS (11 sets, daily range): BP systolic 97–106; BP diastolic 59–70; PULSE 90–119; RESP 18–19
[2016-08-27] MEDS: ALBUTEROL/IPRATROPIUM (NEB) 3 ML AMP HHN SCH ×3 (00:50→15:08)
[2016-08-27] MEDS: morphine 2 MG INJ IV PRN ×4 (03:23→23:50)
[2016-08-27] MEDS: VANCOMYCIN HCL 250 MG/5ML POSYG PO SCH ×4 (05:09→23:42)
[2016-08-27] MEDS: PANTOPRAZOLE (EC) 40 MG TAB PO SCH (05:09)
[2016-08-27] MEDS: LEVOTHYROXINE 125 MCG TAB PO SCH (05:09)
[2016-08-27] MEDS: D5W + KCL 20 MEQ 1,000 ML IV SCH ×2 (05:12→12:05)
[2016-08-27 06:19] LABS: ADD SCAN DIFF NO
[2016-08-27 06:30] LABS: BASOPHIL # 0.1 10^3/ul (0.0-0.1); BASOPHILS % 0.4 % (0.0-2.0); EOSINOPHILS # 0.2 10^3/ul (0.0-0.5); EOSINOPHILS % 1.3 % (0.0-7.0); HEMATOCRIT 24.7 % (37.0-47.0); HEMOGLOBIN 7.6 g/dl (12.0-16.0); LYMPHOCYTES # 2.2 10^3/ul (0.8-2.9); LYMPHOCYTES % 13.2 % (15.0-51.0); MEAN CORPUSCULAR HEMOGLOBIN 25.3 pg (29.0-33.0); MEAN CORPUSCULAR HGB CONC 30.8 g/dl (32.0-37.0); MEAN CORPUSCULAR VOLUME 82.3 fl (82.0-101.0); MEAN PLATELET VOLUME 9.8 fl (7.4-10.4); MONOCYTE # 1.5 10^3/ul (0.3-0.9); MONOCYTES % 9.2 % (0.0-11.0); NEUTROPHIL # 12.2 10^3/ul (1.6-7.5); NEUTROPHILS % 74.7 % (39.0-77.0); RED CELL DISTRIBUTION WIDTH 19.9 % (11.5-14.5); WHITE BLOOD COUNT 16.3 10^3/ul (4.8-10.8)
[2016-08-27 06:44] LABS: PLATELET COUNT 558 10^3/UL (140-415)
[2016-08-27 06:49] LABS: POTASSIUM 3.7 mmol/L (3.5-5.1)
[2016-08-27 06:51] LABS: CREATININE 0.36 mg/dl (0.44-1.00)
[2016-08-27 06:52] LABS: CALCIUM 7.1 mg/dl (8.4-10.2)
[2016-08-27] MEDS: MUPIROCIN 2% 22 GM OINT TOP SCH ×2 (09:13→20:43)
[2016-08-27] MEDS: SODIUM HYPOCHLORITE 0.125% 473 ML BTL IRR SCH ×2 (09:13→20:43)
[2016-08-27] MEDS: COLLAGENASE 30 GM TUBE TOP SCH (09:13)
--- NOTE | 2016-08-27 18:40 | PN ---
Date/Time of Note Date/Time of Note DATE: 08/27/16 TIME: 18:35 Assessment/Plan Lines/Catheters IV [facility]ter Type (from [facility]): PICC Line Urinary Cath still in place: Yes Assessment/Plan Assessment/Plan - Acute hypoxic respiratory failure secondary to pneumonia, chronic obstructive pulmonary disease, and malignancy. Dr. Neri is following in pulmonary consultation. Continue bronchodilators, pulmonary toilet. Continue broad spectrum antibiotics. - Health care acquired pneumonia, status post treatment. Dr. Coleman is following in infectious disease consultation. - Severe sepsis with shock, resolved. - C-diff colitis. continue Vanco. - Hypernatremia, continue free water via GT. Dr. Zapata is following a nephrology consultation. - Chronic obstructive pulmonary disease. Continue bronchodilators. - Multiple decubitus ulcers with history of debridement. Continue wound care. - Chronic urinary retention. - Left lung squamous cell carcinoma. - Anemia of chronic disease.- per nephrology - Congestive heart failure. Dr. Tipton is following the patient in cardiology consultation. - Coagulopathy. - Dysphagia, status post G-tube placement on 08/[address] Gonzales, GI. Continue Pepcid for peptic ulcer disease prophylaxis and sequential compression device for deep venous thrombosis prophylaxis. Further recommendations based on clinical course. Plan of care discussed with Dr. Dozier. Exam/Review of Systems Vital Signs Vitals Vital Signs Date Time Temp Pulse Resp B/P Pulse Ox O2 Delivery O2 Flow Rate FiO2 08/27/16 16:34 118 08/27/16 15:13 20 97 Nasal Cannula 4.0 08/27/16 12:40 98.0 101/67 Intake and Output 08/26/16 08/26/16 08/27/16 15:00 23:00 07:00 Intake Total 1500 ml Output Total 2200 ml 1500 ml Balance -700 ml -1500 ml Exam Constitutional: alert Eyes: EOMI ENMT: nl external ears & nose Respiratory: clear to auscultation Cardiovascular: nl pulses Gastrointestinal: non-tender, soft Musculoskeletal: other Extremities: normal pulses Neurological: nl speech Skin: other Lymph: nontender Results Result Diagram: 08/27/16 0554 08/27/16 0554 Results 24 hrs Laboratory Tests Test 08/26/16 18:50 08/27/16 05:54 Magnesium Level 1.6 L Anion Gap 11 Basophils # 0.1 Basophils % 0.4 Blood Urea Nitrogen 10 Calcium Level 7.1 L Carbon Dioxide Level 27 Chloride Level 97 Creatinine 0.36 L Eosinophils # 0.2 Eosinophils % 1.3 Glucose Level 99 Hematocrit 24.7 L Hemoglobin 7.6 L Lymphocytes # 2.2 Lymphocytes % 13.2 L Mean Corpuscular Hemoglobin 25.3 L Mean Corpuscular Hemoglobin Concent 30.8 L Mean Corpuscular Volume 82.3 Mean Platelet Volume 9.8 Monocytes # 1.5 H Monocytes % 9.2 Neutrophils # 12.2 H Neutrophils % 74.7 Nucleated Red Blood Cells # 0.0 Nucleated Red Blood Cells % 0.0 Platelet Count 558 H Potassium Level 3.7 Red Blood Count 3.00 L Red Cell Distribution Width 19.9 H Sodium Level 131 L White Blood Count 16.3 H Medications Medications Current Medications Hydralazine HCl (Apresoline) 10 mg Q4H PRN IV SBP>170; Start 08/14/16 at 15:30 IV Flush (NS 10 ml) 10 ml PRN PRN IV IV PROTOCOL; Start 08/14/16 at 16:00 Collagenase (Santyl) 1 applic DAILY TOP Last administered on 08/27/16 09:13; Admin Dose 1 APPLIC; Start 08/15/16 at 09:00 Sodium Hypochlorite (Dakin'S (1/4 Strength)) 1 applic BID IRR Last administered on 08/27/16 09:13; Admin Dose 1 APPLIC; Start 08/15/16 at 13:30 Vancomycin HCl (Vancomycin Oral Syringe) 250 mg Q6 PO Last administered on 08/27 17:35; Admin Dose 250 MG; Start 08/16/16 at 18:00 Morphine Sulfate 1 mg 1 mg Q3H PRN IV PAIN Last administered on 08/27/16 15:43 ; Admin Dose 1 MG; Start 08/16/16 at 15:00 Potassium Chloride/Dextrose (D5W + KCl 20 Meq) 1,000 ml @ 80 mls/hr [id number] IV Last administered on 08/27/16 12:05; Admin Dose 80 MLS/HR; Start 08/22/16 at 13:30 Pantoprazole (Protonix Tab) 40 mg DAILY@06 PO Last administered on 08/27/16 05 :09; Admin Dose 40 MG; Start 08/25/16 at 06:00 Mupirocin (Bactroban) 1 applic BID TOP Last administered on 08/27/16t 09:13; Admin Dose 1 APPLIC; Start 08/26/16 at 21:00 VIKASH CASTANEDA Aug 27, 2016 18:40
[2016-08-27] MEDS ORDERED: MAGNESIUM SULFATE 1 GM/D5W 100 ML IVPB ONE (19:30)
--- NOTE | 2016-08-27 19:56 | CONS ---
Date/Time of Note Date/Time of Note DATE: 08/27/16 TIME: 19:53 Assessment/Plan Assessment/Plan Chief Complaint/Hosp Course ID PROGRESS NOTE 24H INTERVAL SUMMARY * 65 yo F w/chronic debility, Awake, alert -- calm, no c/o * 3 BMs today -- No fevers, WBC elevated = chronic issue PHYSICAL EXAMINATION: GENERAL: This is a chronically ill-appearing, frail 65 yo F HEENT: Unremarkable -- NECK: Supple, trachea midline. CHEST: Rise symmetrical without dyspnea ABDOMEN: Refuses exam EXTREMITIES: Moves all extremities, Without cyanosis. ID ASSESSMENT: 65 yo F w/PMHx Dementia, CVA(chronic left thalamic lacunar infarction), Tobacco/ COPD-Emphysema/Lung Cancer re-admit with: 1. Resolving sepsis status post shock = RESOLVED * Afebrile * Chronic mild tachycardia - albuterol * Chronic elevated WBC 2. Clostridium difficile colitis=> recurrent problem * Incontinent of stool 3. Positive urinalysis on admission, with urine culture being negative. * Hx of recurrent UTIs 4. Urinary retention with chronic George=>Probable neurogenic bladder 5. Status post acute respiratory failure secondary to chronic obstructive pulmonary disease exacerbation. 6. Chronic debility w/Cachexia. 7. Multiple decubitus with a history of debridement. 8. H/O DJD spine -> Hx of lumbar spinal fusion 9 .H/O Hypertension w/HTN heart disease mild-mod cLVH on ECHO w/diastolic dysfunction STG I (+) MRSA Nares screen ->Bactroban ALLERGY: PENICILLIN. CURRENT ABX: Vanco PO + Bactroban to nares s/p Flagyl ID PLAN: * Continue local wound care * Continue ABX . Problems: Consultation Date/Type/Reason Admit Date/Time Aug 14, 2016 at 10:56 Initial Consult Date 08/14/16 Type of Consultation: ID Referring Provider: DRE LOBATO MD Exam/Review of Systems Vital Signs Vitals Vital Signs Date Time Temp Pulse Resp B/P Pulse Ox O2 Delivery O2 Flow Rate FiO2 08/27/16 16:34 118 08/27/16 15:13 20 97 Nasal Cannula 4.0 08/27/16 12:40 98.0 101/67 Intake and Output 08/26/16 08/26/16 08/27/16 15:00 23:00 07:00 Intake Total 1500 ml Output Total 2200 ml 1500 ml Balance -700 ml -1500 ml Results Result Diagram: 08/27/16 0554 08/27/16 0554 Results 24 hrs Laboratory Tests Test 08/27/16 05:54 Anion Gap 11 Basophils # 0.1 Basophils % 0.4 Blood Urea Nitrogen 10 Calcium Level 7.1 L Carbon Dioxide Level 27 Chloride Level 97 Creatinine 0.36 L Eosinophils # 0.2 Eosinophils % 1.3 Glucose Level 99 Hematocrit 24.7 L Hemoglobin 7.6 L Lymphocytes # 2.2 Lymphocytes % 13.2 L Mean Corpuscular Hemoglobin 25.3 L Mean Corpuscular Hemoglobin Concent 30.8 L Mean Corpuscular Volume 82.3 Mean Platelet Volume 9.8 Monocytes # 1.5 H Monocytes % 9.2 Neutrophils # 12.2 H Neutrophils % 74.7 Nucleated Red Blood Cells # 0.0 Nucleated Red Blood Cells % 0.0 Platelet Count 558 H Potassium Level 3.7 Red Blood Count 3.00 L Red Cell Distribution Width 19.9 H Sodium Level 131 L White Blood Count 16.3 H Medications Medications Current Medications Hydralazine HCl (Apresoline) 10 mg Q4H PRN IV SBP>170; Start 08/14/16 at 15:30 IV Flush (NS 10 ml) 10 ml PRN PRN IV IV PROTOCOL; Start 08/14/16 at 16:00 Collagenase (Santyl) 1 applic DAILY TOP Last administered on 08/27/16 09:13; Admin Dose 1 APPLIC; Start 08/15/16 at 09:00 Sodium Hypochlorite (Dakin'S (1/4 Strength)) 1 applic BID IRR Last administered on 08/27/16 09:13; Admin Dose 1 APPLIC; Start 08/15/16 at 13:30 Vancomycin HCl (Vancomycin Oral Syringe) 250 mg Q6 PO Last administered on 08/27 17:35; Admin Dose 250 MG; Start 08/16/16 at 18:00 Morphine Sulfate 1 mg 1 mg Q3H PRN IV PAIN Last administered on 08/27/16 15:43 ; Admin Dose 1 MG; Start 08/16/16 at 15:00 Potassium Chloride/Dextrose (D5W + KCl 20 Meq) 1,000 ml @ 80 mls/hr [id number] IV Last administered on 08/27/16 12:05; Admin Dose 80 MLS/HR; Start 08/22/16 at 13:30 Pantoprazole (Protonix Tab) 40 mg DAILY@06 PO Last administered on 08/27/16 05 :09; Admin Dose 40 MG; Start 08/25/16 at 06:00 Mupirocin 1 applic 1 applic BID TOP Last administered on 08/27/16 09:13; Admin Dose 1 APPLIC; Start 08/26/16 at 21:00 Magnesium Sulfate/ Dextrose (Magnesium Sulfate 1 Gm/D5W) 100 ml @ 100 mls/hr ONCE ONCE IVPB ; Start 08/27/16 at 19:30; Stop 08/27/16 at 20:29 ALMA ROSARIO NP Aug 27, 2016 19:56
--- NOTE | 2016-08-27 22:06 | CONS ---
Date/Time of Note Date/Time of Note DATE: 08/27/16 TIME: 22:05 Assessment/Plan Assessment/Plan Additional Assessment/Plan 1. Acute kidney injury on possible chronic kidney disease, likely secondary to cardiorenal syndrome in the setting of diastolic heart failure. 2. Acute hypernatremia with Na upto 158 2. Status post extubation for acute hypoxemic respiratory failure. 3. Septic shock. 4. Pulmonary hypertension with a preserved ejection fraction on echocardiogram. 5. History of possible lung cancer. PLAN: monitor Na,mag replaced yesterday Cr normal today will continue to follow up Consultation Date/Type/Reason Admit Date/Time Aug 14, 2016 at 10:56 Initial Consult Date 08/17/2016 Type of Consultation: Nephrology Referring Provider: DRE LOBATO MD 24 HR Interval Summary Free Text/Dictation Na 131, Cr normal Exam/Review of Systems Vital Signs Vitals Vital Signs Date Time Temp Pulse Resp B/P Pulse Ox O2 Delivery O2 Flow Rate FiO2 08/27/16 20:48 98.6 107 19 97/59 96 08/27/16 20:00 Nasal Cannula 08/27/16 15:13 4.0 Intake and Output 08/26/16 08/26/16 08/27/16 15:00 23:00 07:00 Intake Total 1500 ml Output Total 2200 ml 1500 ml Balance -700 ml -1500 ml Results Result Diagram: 08/27/16 0554 08/27/16 0554 Results 24 hrs Laboratory Tests Test 08/27/16 05:54 Anion Gap 11 Basophils # 0.1 Basophils % 0.4 Blood Urea Nitrogen 10 Calcium Level 7.1 L Carbon Dioxide Level 27 Chloride Level 97 Creatinine 0.36 L Eosinophils # 0.2 Eosinophils % 1.3 Glucose Level 99 Hematocrit 24.7 L Hemoglobin 7.6 L Lymphocytes # 2.2 Lymphocytes % 13.2 L Mean Corpuscular Hemoglobin 25.3 L Mean Corpuscular Hemoglobin Concent 30.8 L Mean Corpuscular Volume 82.3 Mean Platelet Volume 9.8 Monocytes # 1.5 H Monocytes % 9.2 Neutrophils # 12.2 H Neutrophils % 74.7 Nucleated Red Blood Cells # 0.0 Nucleated Red Blood Cells % 0.0 Platelet Count 558 H Potassium Level 3.7 Red Blood Count 3.00 L Red Cell Distribution Width 19.9 H Sodium Level 131 L White Blood Count 16.3 H Medications Medications Current Medications Hydralazine HCl (Apresoline) 10 mg Q4H PRN IV SBP>170; Start 08/14/16 at 15:30 IV Flush (NS 10 ml) 10 ml PRN PRN IV IV PROTOCOL; Start 08/14/16 at 16:00 Collagenase (Santyl) 1 applic DAILY TOP Last administered on 08/27/16 09:13; Admin Dose 1 APPLIC; Start 08/15/16 at 09:00 Sodium Hypochlorite (Dakin'S (1/4 Strength)) 1 applic BID IRR Last administered on 08/27/16 20:43; Admin Dose 1 APPLIC; Start 08/15/16 at 13:30 Vancomycin HCl (Vancomycin Oral Syringe) 250 mg Q6 PO Last administered on 08/27 17:35; Admin Dose 250 MG; Start 08/16/16 at 18:00 Morphine Sulfate 1 mg 1 mg Q3H PRN IV PAIN Last administered on 08/27/16 15:43 ; Admin Dose 1 MG; Start 08/16/16 at 15:00 Potassium Chloride/Dextrose (D5W + KCl 20 Meq) 1,000 ml @ 80 mls/hr [id number] IV Last administered on 08/27/16 12:05; Admin Dose 80 MLS/HR; Start 08/22/16 at 13:30 Pantoprazole (Protonix Tab) 40 mg DAILY@06 PO Last administered on 08/27/16 05 :09; Admin Dose 40 MG; Start 08/25/16 at 06:00 Mupirocin (Bactroban) 1 applic BID TOP Last administered on 08/27/16 20:43; Admin Dose 1 APPLIC; Start 08/26/16 at 21:00 DIONNE SAUCEDA MD Aug 27, 2016 22:06
[2016-08-28] VITALS (12 sets, daily range): BP systolic 90–105; BP diastolic 59–70; PULSE 108–120; RESP 16–22
[2016-08-28] MEDS: PANTOPRAZOLE (EC) 40 MG TAB PO SCH (05:58)
[2016-08-28] MEDS: VANCOMYCIN HCL 250 MG/5ML POSYG PO SCH ×3 (05:58→18:24)
[2016-08-28] MEDS: morphine 2 MG INJ IV PRN ×5 (06:56→23:23)
[2016-08-28 07:19] LABS: ADD SCAN DIFF NO
[2016-08-28 07:26] LABS: ABNORMAL IP MESSAGE 1; BASOPHIL # 0.1 10^3/ul (0.0-0.1); BASOPHILS % 0.3 % (0.0-2.0); EOSINOPHILS # 0.3 10^3/ul (0.0-0.5); EOSINOPHILS % 1.5 % (0.0-7.0); LYMPHOCYTES # 2.1 10^3/ul (0.8-2.9); LYMPHOCYTES % 12.4 % (15.0-51.0); MEAN CORPUSCULAR HEMOGLOBIN 25.9 pg (29.0-33.0); MEAN CORPUSCULAR VOLUME 80.9 fl (82.0-101.0); MEAN PLATELET VOLUME 9.6 fl (7.4-10.4); MONOCYTE # 1.7 10^3/ul (0.3-0.9); MONOCYTES % 9.9 % (0.0-11.0); NEUTROPHIL # 12.9 10^3/ul (1.6-7.5); NEUTROPHILS % 74.9 % (39.0-77.0); PLATELET COUNT 672 10^3/UL (140-415); RED BLOOD COUNT 3.09 10^6/ul (4.20-5.40); RED CELL DISTRIBUTION WIDTH 19.6 % (11.5-14.5); WHITE BLOOD COUNT 17.2 10^3/ul (4.8-10.8)
[2016-08-28] MEDS: ALBUTEROL/IPRATROPIUM (NEB) 3 ML AMP HHN SCH ×4 (07:37→23:57)
[2016-08-28 07:48] LABS: POTASSIUM 4.8 mmol/L (3.5-5.1)
[2016-08-28 07:50] LABS: CREATININE 0.34 mg/dl (0.44-1.00)
[2016-08-28 07:51] LABS: CALCIUM 7.5 mg/dl (8.4-10.2)
[2016-08-28] MEDS: LEVOTHYROXINE 125 MCG TAB PO SCH (09:18)
[2016-08-28] MEDS: COLLAGENASE 30 GM TUBE TOP SCH (09:19)
[2016-08-28] MEDS: SODIUM HYPOCHLORITE 0.125% 473 ML BTL IRR SCH ×2 (09:19→20:46)
[2016-08-28] MEDS: MUPIROCIN 2% 22 GM OINT TOP SCH ×2 (09:19→20:47)
[2016-08-28] MEDS: D5W + KCL 20 MEQ 1,000 ML IV SCH ×2 (09:20→14:06)
--- NOTE | 2016-08-28 10:45 | CONS ---
Date/Time of Note Date/Time of Note DATE: 08/28/16 TIME: 10:42 Assessment/Plan Assessment/Plan Additional Assessment/Plan 1. Acute kidney injury on possible chronic kidney disease, likely secondary to cardiorenal syndrome in the setting of diastolic heart failure. 2. Acute hypernatremia with Na upto 158 2. Status post extubation for acute hypoxemic respiratory failure. 3. Septic shock. 4. Pulmonary hypertension with a preserved ejection fraction on echocardiogram. 5. History of possible lung cancer. PLAN: electrolytes stable today, little low Na Cr normal today will continue to follow up Consultation Date/Type/Reason Admit Date/Time Aug 14, 2016 at 10:56 Initial Consult Date 08/17/2016 Type of Consultation: Nephrology Referring Provider: DRE LOBATO MD 24 HR Interval Summary Free Text/Dictation Hb 8.0,Na 134, Cr stable, no acute events overnight Exam/Review of Systems Vital Signs Vitals Vital Signs Date Time Temp Pulse Resp B/P Pulse Ox O2 Delivery O2 Flow Rate FiO2 08/28/16 08:44 112 08/28/16 07:51 98.9 20 99/69 92 08/28/16 07:37 4.0 08/27/16 20:00 Nasal Cannula Intake and Output 08/27/16 08/27/16 08/28/16 15:00 23:00 07:00 Intake Total 2300 ml 1500 ml Output Total 1300 ml 1200 ml Balance 1000 ml 300 ml Results Result Diagram: 08/28/16 0646 08/28/16 0646 Results 24 hrs Laboratory Tests Test 08/28/16 06:46 Anion Gap 12 Basophils # 0.1 Basophils % 0.3 Blood Urea Nitrogen 11 Calcium Level 7.5 L Carbon Dioxide Level 26 Chloride Level 98 Creatinine 0.34 L Eosinophils # 0.3 Eosinophils % 1.5 Glucose Level 92 Hematocrit 25.0 L Hemoglobin 8.0 L Lymphocytes # 2.1 Lymphocytes % 12.4 L Magnesium Level 1.7 Mean Corpuscular Hemoglobin 25.9 L Mean Corpuscular Hemoglobin Concent 32.0 Mean Corpuscular Volume 80.9 L Mean Platelet Volume 9.6 Monocytes # 1.7 H Monocytes % 9.9 Neutrophils # 12.9 H Neutrophils % 74.9 Nucleated Red Blood Cells # 0.0 Nucleated Red Blood Cells % 0.0 Platelet Count 672 #H Potassium Level 4.8 Red Blood Count 3.09 L Red Cell Distribution Width 19.6 H Sodium Level 131 L White Blood Count 17.2 H Medications Medications Current Medications Hydralazine HCl (Apresoline) 10 mg Q4H PRN IV SBP>170; Start 08/14/16 at 15:30 IV Flush (NS 10 ml) 10 ml PRN PRN IV IV PROTOCOL; Start 08/14/16 at 16:00 Collagenase (Santyl) 1 applic DAILY TOP Last administered on 08/28/16 09:19; Admin Dose 1 APPLIC; Start 08/15/16 at 09:00 Sodium Hypochlorite (Dakin'S (1/4 Strength)) 1 applic BID IRR Last administered on 08/28/16 09:19; Admin Dose 1 APPLIC; Start 08/15/16 at 13:30 Vancomycin HCl (Vancomycin Oral Syringe) 250 mg Q6 PO Last administered on 08/28 05:58; Admin Dose 250 MG; Start 08/16/16 at 18:00 Morphine Sulfate 1 mg 1 mg Q3H PRN IV PAIN Last administered on 08/28/16 06:56 ; Admin Dose 1 MG; Start 08/16/16 at 15:00 Potassium Chloride/Dextrose (D5W + KCl 20 Meq) 1,000 ml @ 80 mls/hr [id number] IV Last administered on 08/27/16 12:05; Admin Dose 80 MLS/HR; Start 08/22/16 at 13:30 Pantoprazole (Protonix Tab) 40 mg DAILY@06 PO Last administered on 08/28/16 05 :58; Admin Dose 40 MG; Start 08/25/16 at 06:00 Mupirocin (Bactroban) 1 applic BID TOP Last administered on 08/28/16 09:19; Admin Dose 1 APPLIC; Start 08/26/16 at 21:00 DIONNE SAUCEDA MD Aug 28, 2016 10:44
--- NOTE | 2016-08-28 12:08 | PN ---
Date/Time of Note Date/Time of Note DATE: 08/28/16 TIME: 12:04 Assessment/Plan VTE Prophylaxis VTE Prophylaxis Intervention: SCD's Lines/Catheters IV Catheter Type (from Nrs): PICC Line Central line still needed: Yes Urinary Cath still in place: Yes Reason Cath still needed: urinary retention Assessment/Plan Chief Complaint/Hosp Course ASSESSMENT AND PLAN: - S/P Acute hypoxic respiratory failure secondary to pneumonia, chronic obstructive pulmonary disease, and malignancy. Dr. Neri is following in pulmonary consultation. Continue bronchodilators, pulmonary toilet. Continue broad spectrum antibiotics. - Health care acquired pneumonia, status post treatment. Dr. Coleman is following in infectious disease consultation. - Severe sepsis with shock, resolved. - C-diff colitis. continue Vanco. - Hypernatremia,resolved. Dr. Zapata is following a nephrology consultation. - Chronic obstructive pulmonary disease. Continue bronchodilators. - Multiple decubitus ulcers with history of debridement. Continue wound care. - Chronic urinary retention. Continue George cath. - Left lung squamous cell carcinoma. - Anemia of chronic disease. - Congestive heart failure. Dr. Tipton is following the patient in cardiology consultation. - Coagulopathy. - Dysphagia, status post G-tube placement on 08/[address] Gonzales, GI. - Chronic pain. Continue Pepcid for peptic ulcer disease prophylaxis and sequential compression device for deep venous thrombosis prophylaxis. Further recommendations based on clinical course. Plan of care discussed with Dr. Dozier. Problems: Subjective 24 Hr Interval Summary Free Text/Dictation Patient tolerates GT feeding well, no residual per RN,pt complains of pain, continue pain management, no N/V no fever. Exam/Review of Systems Vital Signs Vitals Vital Signs Date Time Temp Pulse Resp B/P Pulse Ox O2 Delivery O2 Flow Rate FiO2 08/28/16 11:38 98.1 104 20 105/62 98 08/28/16 07:37 4.0 08/27/16 20:00 Nasal Cannula Intake and Output 08/27/16 08/27/16 08/28/16 15:00 23:00 07:00 Intake Total 2300 ml 1500 ml Output Total 1300 ml 1200 ml Balance 1000 ml 300 ml Exam PHYSICAL ASSESSMENT: GENERAL: Fragile, cachectic, elderly female, currently on supplemental oxygen. HEENT: Head is atraumatic, normocephalic. Pupils equal, round, reactive to light and accommodation. NECK: Supple, no thyromegaly. CHEST: Patient has diminished breath sounds with diminished air entry bilaterally. CARDIOVASCULAR: Normal S1, S2. No murmurs, gallops, clicks, rubs noted. ABDOMEN: Flat, nondistended, nontender. Bowel sounds present. GT. EXTREMITIES: There is no edema, clubbing, cyanosis. Pulses equal bilaterally 2 +. SKIN: Patient has multiple pressure ulcers including sacral wound. NEUROLOGICAL: Lethargic but easily arousable. Results Result Diagram: 08/28/16 0646 08/28/16 0646 Results 24 hrs Laboratory Tests Test 08/28/16 06:46 Anion Gap 12 Basophils # 0.1 Basophils % 0.3 Blood Urea Nitrogen 11 Calcium Level 7.5 L Carbon Dioxide Level 26 Chloride Level 98 Creatinine 0.34 L Eosinophils # 0.3 Eosinophils % 1.5 Glucose Level 92 Hematocrit 25.0 L Hemoglobin 8.0 L Lymphocytes # 2.1 Lymphocytes % 12.4 L Magnesium Level 1.7 Mean Corpuscular Hemoglobin 25.9 L Mean Corpuscular Hemoglobin Concent 32.0 Mean Corpuscular Volume 80.9 L Mean Platelet Volume 9.6 Monocytes # 1.7 H Monocytes % 9.9 Neutrophils # 12.9 H Neutrophils % 74.9 Nucleated Red Blood Cells # 0.0 Nucleated Red Blood Cells % 0.0 Platelet Count 672 #H Potassium Level 4.8 Red Blood Count 3.09 L Red Cell Distribution Width 19.6 H Sodium Level 131 L White Blood Count 17.2 H Medications Medications Current Medications Hydralazine HCl (Apresoline) 10 mg Q4H PRN IV SBP>170; Start 08/14/16 at 15:30 IV Flush (NS 10 ml) 10 ml PRN PRN IV IV PROTOCOL; Start 08/14/16 at 16:00 Collagenase (Santyl) 1 applic DAILY TOP Last administered on 08/28/16 09:19; Admin Dose 1 APPLIC; Start 08/15/16 at 09:00 Sodium Hypochlorite (Dakin'S (1/4 Strength)) 1 applic BID IRR Last administered on 08/28/16 09:19; Admin Dose 1 APPLIC; Start 08/15/16 at 13:30 Vancomycin HCl (Vancomycin Oral Syringe) 250 mg Q6 PO Last administered on 08/28 05:58; Admin Dose 250 MG; Start 08/16/16 at 18:00 Morphine Sulfate 1 mg 1 mg Q3H PRN IV PAIN Last administered on 08/28/16 10:50 ; Admin Dose 1 MG; Start 08/16/16 at 15:00 Potassium Chloride/Dextrose (D5W + KCl 20 Meq) 1,000 ml @ 80 mls/hr [id number] IV Last administered on 08/27/16 12:05; Admin Dose 80 MLS/HR; Start 08/22/16 at 13:30 Pantoprazole (Protonix Tab) 40 mg DAILY@06 PO Last administered on 08/28/16 05 :58; Admin Dose 40 MG; Start 08/25/16 at 06:00 Mupirocin (Bactroban) 1 applic BID TOP Last administered on 08/28/16 09:19; Admin Dose 1 APPLIC; Start 08/26/16 at 21:00 REBECCA ISLAS Aug 28, 2016 12:07
--- NOTE | 2016-08-28 12:58 | CONS ---
Date/Time of Note Date/Time of Note DATE: 08/28/16 TIME: 12:57 Assessment/Plan Assessment/Plan Chief Complaint/Hosp Course SUBJECTIVE: No events overnight. No fevers. Alert, looks comfortable. INDWELLINGS: 1. PEG. 2. PICC line placed on 08/14/2016. 3. George catheter. ANTIMICROBIALS: 1. Flagyl. 2. Oral vancomycin. PHYSICAL EXAMINATION: GENERAL: A fragile, cachectic elderly woman, who is in no distress. HEENT: Head atraumatic, normocephalic. Sclerae anicteric. Buccal mucosa dry. NECK: Supple. Trachea midline. CHEST: Chest rise is symmetrical. Breath sounds diminished to the bases. HEART: S1, S2. ABDOMEN: Soft. Bowel sounds present. EXTREMITIES: Without edema. SKIN: With multiple unstageable decubiti. ASSESSMENT: 1. Resolving sepsis status post shock. 2. Clostridium difficile colitis. 3. Positive urinalysis on admission, with urine culture being negative. 4. Lung cancer 5. ALLERGY TO PENICILLIN. 6. Multiple chronic wounds. 7. Cachexia. 8. Anemia. PLAN: Remains stable, continue PO Vanco for 10 more days, aspiration precautions, local wound care DW staff Problems: Consultation Date/Type/Reason Admit Date/Time Aug 14, 2016 at 10:56 Initial Consult Date 08/14/16 Type of Consultation: ID Referring Provider: DRE LOBATO MD Exam/Review of Systems Vital Signs Vitals Vital Signs Date Time Temp Pulse Resp B/P Pulse Ox O2 Delivery O2 Flow Rate FiO2 08/28/16 12:42 108 08/28/16 11:38 98.1 20 105/62 98 08/28/16 07:37 4.0 08/27/16 20:00 Nasal Cannula Intake and Output 08/27/16 08/27/16 08/28/16 15:00 23:00 07:00 Intake Total 2300 ml 1500 ml Output Total 1300 ml 1200 ml Balance 1000 ml 300 ml Results Result Diagram: 08/28/16 0646 08/28/16 0646 Results 24 hrs Laboratory Tests Test 08/28/16 06:46 Anion Gap 12 Basophils # 0.1 Basophils % 0.3 Blood Urea Nitrogen 11 Calcium Level 7.5 L Carbon Dioxide Level 26 Chloride Level 98 Creatinine 0.34 L Eosinophils # 0.3 Eosinophils % 1.5 Glucose Level 92 Hematocrit 25.0 L Hemoglobin 8.0 L Lymphocytes # 2.1 Lymphocytes % 12.4 L Magnesium Level 1.7 Mean Corpuscular Hemoglobin 25.9 L Mean Corpuscular Hemoglobin Concent 32.0 Mean Corpuscular Volume 80.9 L Mean Platelet Volume 9.6 Monocytes # 1.7 H Monocytes % 9.9 Neutrophils # 12.9 H Neutrophils % 74.9 Nucleated Red Blood Cells # 0.0 Nucleated Red Blood Cells % 0.0 Platelet Count 672 #H Potassium Level 4.8 Red Blood Count 3.09 L Red Cell Distribution Width 19.6 H Sodium Level 131 L White Blood Count 17.2 H Medications Medications Current Medications Hydralazine HCl (Apresoline) 10 mg Q4H PRN IV SBP>170; Start 08/14/16 at 15:30 IV Flush (NS 10 ml) 10 ml PRN PRN IV IV PROTOCOL; Start 08/14/16 at 16:00 Collagenase (Santyl) 1 applic DAILY TOP Last administered on 08/28/16 09:19; Admin Dose 1 APPLIC; Start 08/15/16 at 09:00 Sodium Hypochlorite (Dakin'S (1/4 Strength)) 1 applic BID IRR Last administered on 08/28/16 09:19; Admin Dose 1 APPLIC; Start 08/15/16 at 13:30 Vancomycin HCl (Vancomycin Oral Syringe) 250 mg Q6 PO Last administered on 08/28 05:58; Admin Dose 250 MG; Start 08/16/16 at 18:00 Morphine Sulfate 1 mg 1 mg Q3H PRN IV PAIN Last administered on 08/28/16 10:50 ; Admin Dose 1 MG; Start 08/16/16 at 15:00 Potassium Chloride/Dextrose (D5W + KCl 20 Meq) 1,000 ml @ 80 mls/hr [id number] IV Last administered on 08/27/16 12:05; Admin Dose 80 MLS/HR; Start 08/22/16 at 13:30 Pantoprazole (Protonix Tab) 40 mg DAILY@06 PO Last administered on 08/28/16 05 :58; Admin Dose 40 MG; Start 08/25/16 at 06:00 Mupirocin (Bactroban) 1 applic BID TOP Last administered on 08/28/16 09:19; Admin Dose 1 APPLIC; Start 08/26/16 at 21:00 RUBIN MAYEN NP Aug 28, 2016 12:58
[2016-08-29] VITALS (13 sets, daily range): BP systolic 97–136; BP diastolic 55–79; PULSE 100–122; RESP 18–20
[2016-08-29] MEDS: VANCOMYCIN HCL 250 MG/5ML POSYG PO SCH ×4 (00:43→17:05)
[2016-08-29] MEDS: morphine 2 MG INJ IV PRN ×7 (03:20→21:35)
[2016-08-29] MEDS: D5W + KCL 20 MEQ 1,000 ML IV SCH ×2 (03:21→08:00)
[2016-08-29] MEDS: LEVOTHYROXINE 125 MCG TAB PO SCH (06:18)
[2016-08-29] MEDS: PANTOPRAZOLE (EC) 40 MG TAB PO SCH (06:18)
[2016-08-29 07:47] LABS: ADD SCAN DIFF NO
[2016-08-29 07:56] LABS: BASOPHIL # 0.1 10^3/ul (0.0-0.1); BASOPHILS % 0.4 % (0.0-2.0); EOSINOPHILS # 0.3 10^3/ul (0.0-0.5); EOSINOPHILS % 1.9 % (0.0-7.0); HEMATOCRIT 23.1 % (37.0-47.0); HEMOGLOBIN 7.2 g/dl (12.0-16.0); LYMPHOCYTES % 13.8 % (15.0-51.0); MEAN CORPUSCULAR HEMOGLOBIN 25.9 pg (29.0-33.0); MEAN CORPUSCULAR HGB CONC 31.2 g/dl (32.0-37.0); MEAN CORPUSCULAR VOLUME 83.1 fl (82.0-101.0); MEAN PLATELET VOLUME 9.3 fl (7.4-10.4); MONOCYTE # 1.4 10^3/ul (0.3-0.9); MONOCYTES % 9.6 % (0.0-11.0); NEUTROPHIL # 10.8 10^3/ul (1.6-7.5); NEUTROPHILS % 73.1 % (39.0-77.0); RED BLOOD COUNT 2.78 10^6/ul (4.20-5.40); RED CELL DISTRIBUTION WIDTH 19.3 % (11.5-14.5); WHITE BLOOD COUNT 14.7 10^3/ul (4.8-10.8)
[2016-08-29 08:06] LABS: PLATELET COUNT 673 10^3/UL (140-415)
[2016-08-29 08:22] LABS: POTASSIUM 4.2 mmol/L (3.5-5.1)
[2016-08-29 08:25] LABS: CALCIUM 7.3 mg/dl (8.4-10.2); CREATININE 0.36 mg/dl (0.44-1.00)
[2016-08-29] MEDS: MUPIROCIN 2% 22 GM OINT TOP SCH ×2 (08:50→20:52)
[2016-08-29] MEDS: SODIUM HYPOCHLORITE 0.125% 473 ML BTL IRR SCH (08:51)
[2016-08-29] MEDS: COLLAGENASE 30 GM TUBE TOP SCH (08:53)
[2016-08-29] MEDS: ALBUTEROL/IPRATROPIUM (NEB) 3 ML AMP HHN SCH ×2 (09:40→16:28)
--- NOTE | 2016-08-29 13:58 | PN ---
Date/Time of Note Date/Time of Note DATE: 08/29/16 TIME: 13:56 Assessment/Plan VTE Prophylaxis VTE Prophylaxis Intervention: SCD's Lines/Catheters [facility] PICC Line Central line still needed: Yes Urinary Cath still in place: Yes Reason Cath still needed: urinary retention Assessment/Plan Chief Complaint/Hosp Course ASSESSMENT AND PLAN: - S/P Acute hypoxic respiratory failure secondary to pneumonia, chronic obstructive pulmonary disease, and malignancy. Dr. Neri is following in pulmonary consultation. Continue bronchodilators, pulmonary toilet. Continue broad spectrum antibiotics. - Health care acquired pneumonia, status post treatment. Dr. Coleman is following in infectious disease consultation. - Severe sepsis with shock, resolved. - C-diff colitis. continue Vanco. - Hypernatremia,resolved. Dr. Zapata is following a nephrology consultation. - Chronic obstructive pulmonary disease. Continue bronchodilators. - Multiple decubitus ulcers with history of debridement. Continue wound care. - Chronic urinary retention. Continue George cath. - Left lung squamous cell carcinoma. - Anemia of chronic disease, transfuse as needed. - Congestive heart failure. Dr. Tipton is following the patient in cardiology consultation. - Coagulopathy. - Dysphagia, status post G-tube placement on 08/[address] Gonzales, GI. - Chronic pain. Continue Pepcid for peptic ulcer disease prophylaxis and sequential compression device for deep venous thrombosis prophylaxis. Further recommendations based on clinical course. Plan of care discussed with Dr. Dozier. Problems: Subjective 24 Hr Interval Summary Free Text/Dictation Patient is slightly tachycardic, sinus tach on telemetry, slightly increase hyponatremia, patient tolerates G-tube feeding well, will decrease water flushes via G-tube. Hemoglobin is 7.2, packed red blood cells 2 units ordered in a.m. Exam/Review of Systems Vital Signs Vitals Vital Signs Date Time Temp Pulse Resp B/P Pulse Ox O2 Delivery O2 Flow Rate FiO2 08/29/16 11:45 97.7 99 20 97/55 97 08/29/16 10:56 5.0 08/29/16 09:40 Nasal Cannula Intake and Output 08/28/16 08/28/16 08/29/16 15:00 23:00 07:00 Intake Total 1500 ml 2006 ml Output Total 2100 ml 1850 ml Balance -600 ml 156 ml Exam PHYSICAL ASSESSMENT: GENERAL: Fragile, cachectic, elderly female, currently on supplemental oxygen. HEENT: Head is atraumatic, normocephalic. PERRLA. NECK: Supple, no thyromegaly. CHEST: Patient has diminished breath sounds with diminished air entry bilaterally. CARDIOVASCULAR: Normal S1, S2. No murmurs, gallops, clicks, rubs noted. ABDOMEN: Flat, nondistended, nontender. Bowel sounds present. GT. EXTREMITIES: There is no edema, clubbing, cyanosis. Pulses equal bilaterally 2 +. SKIN: Patient has multiple pressure ulcers including sacral wound. NEUROLOGICAL: Alert and oriented to name and situation, follows immediate commands. Results Result Diagram: 08/29/16 0645 08/29/16 0645 Results 24 hrs Laboratory Tests Test 08/29/16 06:45 Anion Gap 11 Basophils # 0.1 Basophils % 0.4 Blood Urea Nitrogen 11 Calcium Level 7.3 L Carbon Dioxide Level 26 Chloride Level 96 L Creatinine 0.36 L Eosinophils # 0.3 Eosinophils % 1.9 Glucose Level 116 Hematocrit 23.1 L Hemoglobin 7.2 L Lymphocytes # 2.0 Lymphocytes % 13.8 L Mean Corpuscular Hemoglobin 25.9 L Mean Corpuscular Hemoglobin Concent 31.2 L Mean Corpuscular Volume 83.1 Mean Platelet Volume 9.3 Monocytes # 1.4 H Monocytes % 9.6 Neutrophils # 10.8 H Neutrophils % 73.1 Nucleated Red Blood Cells # 0.0 Nucleated Red Blood Cells % 0.0 Platelet Count 673 H Potassium Level 4.2 Red Blood Count 2.78 L Red Cell Distribution Width 19.3 H Sodium Level 129 L White Blood Count 14.7 H Medications Medications Current Medications Hydralazine HCl (Apresoline) 10 mg Q4H PRN IV SBP>170; Start 08/14/16 at 15:30 IV Flush (NS 10 ml) 10 ml PRN PRN IV IV PROTOCOL; Start 08/14/16 at 16:00 Collagenase (Santyl) 1 applic DAILY TOP Last administered on 08/29/16 08:53; Admin Dose 1 APPLIC; Start 08/15/16 at 09:00 Sodium Hypochlorite (Dakin'S (1/4 Strength)) 1 applic BID IRR Last administered on 08/29/16 08:51; Admin Dose 1 APPLIC; Start 08/15/16 at 13:30 Vancomycin HCl (Vancomycin Oral Syringe) 250 mg Q6 PO Last administered on 08/29 11:11; Admin Dose 250 MG; Start 08/16/16 at 18:00 Morphine Sulfate 1 mg 1 mg Q3H PRN IV PAIN Last administered on 08/29/16 12:57 ; Admin Dose 1 MG; Start 08/16/16 at 15:00 Potassium Chloride/Dextrose (D5W + KCl 20 Meq) 1,000 ml @ 80 mls/hr [id number] IV Last administered on 08/29/16 03:21; Admin Dose 80 MLS/HR; Start 08/22/16 at 13:30 Pantoprazole (Protonix Tab) 40 mg DAILY@06 PO Last administered on 08/29/16 06 :18; Admin Dose 40 MG; Start 08/25/16 at 06:00 Mupirocin (Bactroban) 1 applic BID TOP Last administered on 08/29/16 08:50; Admin Dose 1 APPLIC; Start 08/26/16 at 21:00 REBECCA ISLAS Aug 29, 2016 13:58
--- NOTE | 2016-08-29 15:47 | CONS ---
Date/Time of Note Date/Time of Note DATE: 08/29/16 TIME: 15:46 Assessment/Plan Assessment/Plan Chief Complaint/Hosp Course SUBJECTIVE: No events overnight. No fevers. Getting bld tx, looks comfortable, no diarrhea. INDWELLINGS: 1. PEG. 2. PICC line placed on 08/14/2016. 3. George catheter. ANTIMICROBIALS: 1. Flagyl. 2. Oral vancomycin. PHYSICAL EXAMINATION: GENERAL: A fragile, cachectic elderly woman, who is in no distress. HEENT: Head atraumatic, normocephalic. Sclerae anicteric. Buccal mucosa dry. NECK: Supple. Trachea midline. CHEST: Chest rise is symmetrical. Breath sounds diminished to the bases. HEART: S1, S2. ABDOMEN: Soft. Bowel sounds present. EXTREMITIES: Without edema. SKIN: With multiple unstageable decubiti. ASSESSMENT: 1. Resolving sepsis status post shock. 2. Clostridium difficile colitis. 3. Positive urinalysis on admission, with urine culture being negative. 4. Lung cancer 5. ALLERGY TO PENICILLIN. 6. Multiple chronic wounds. 7. Cachexia. 8. Anemia. PLAN: Remains stable, diarrhea resolved, continue PO Vanco for 9 more days, continue aspiration precautions and local wound care, dc isolation DW staff Problems: Consultation Date/Type/Reason Admit Date/Time Aug 14, 2016 at 10:56 Initial Consult Date 08/14/16 Type of Consultation: ID Referring Provider: DRE LOBATO MD Exam/Review of Systems Vital Signs Vitals Vital Signs Date Time Temp Pulse Resp B/P Pulse Ox O2 Delivery O2 Flow Rate FiO2 08/29/16 15:16 100 08/29/16 11:45 97.7 20 97/55 97 08/29/16 10:56 5.0 08/29/16 09:40 Nasal Cannula Intake and Output 08/28/16 08/28/16 08/29/16 15:00 23:00 07:00 Intake Total 1500 ml 2006 ml Output Total 2100 ml 1850 ml Balance -600 ml 156 ml Results Result Diagram: 08/29/16 0645 08/29/16 0645 Results 24 hrs Laboratory Tests Test 08/29/16 06:45 Anion Gap 11 Basophils # 0.1 Basophils % 0.4 Blood Urea Nitrogen 11 Calcium Level 7.3 L Carbon Dioxide Level 26 Chloride Level 96 L Creatinine 0.36 L Eosinophils # 0.3 Eosinophils % 1.9 Glucose Level 116 Hematocrit 23.1 L Hemoglobin 7.2 L Lymphocytes # 2.0 Lymphocytes % 13.8 L Mean Corpuscular Hemoglobin 25.9 L Mean Corpuscular Hemoglobin Concent 31.2 L Mean Corpuscular Volume 83.1 Mean Platelet Volume 9.3 Monocytes # 1.4 H Monocytes % 9.6 Neutrophils # 10.8 H Neutrophils % 73.1 Nucleated Red Blood Cells # 0.0 Nucleated Red Blood Cells % 0.0 Platelet Count 673 H Potassium Level 4.2 Red Blood Count 2.78 L Red Cell Distribution Width 19.3 H Sodium Level 129 L White Blood Count 14.7 H Medications Medications Current Medications Hydralazine HCl (Apresoline) 10 mg Q4H PRN IV SBP>170; Start 08/14/16 at 15:30 IV Flush (NS 10 ml) 10 ml PRN PRN IV IV PROTOCOL; Start 08/14/16 at 16:00 Collagenase (Santyl) 1 applic DAILY TOP Last administered on 08/29/16 08:53; Admin Dose 1 APPLIC; Start 08/15/16 at 09:00 Sodium Hypochlorite (Dakin'S (1/4 Strength)) 1 applic BID IRR Last administered on 08/29/16 08:51; Admin Dose 1 APPLIC; Start 08/15/16 at 13:30 Vancomycin HCl (Vancomycin Oral Syringe) 250 mg Q6 PO Last administered on 08/29 11:11; Admin Dose 250 MG; Start 08/16/16 at 18:00 Morphine Sulfate (morphine) 1 mg Q3H PRN IV PAIN Last administered on 12:57; Admin Dose 1 MG; Start 08/16/16 at 15:00 Pantoprazole (Protonix Tab) 40 mg DAILY@06 PO Last administered on 08/29/16 06 :18; Admin Dose 40 MG; Start 08/25/16 at 06:00 Mupirocin (Bactroban) 1 applic BID TOP Last administered on 08/29/16 08:50; Admin Dose 1 APPLIC; Start 08/26/16 at 21:00 RUBIN MAYEN NP Aug 29, 2016 15:47
--- NOTE | 2016-08-29 15:57 | CONS ---
Date/Time of Note Date/Time of Note DATE: 08/29/16 TIME: 15:56 Assessment/Plan Assessment/Plan Additional Assessment/Plan 1. Acute kidney injury on possible chronic kidney disease, likely secondary to cardiorenal syndrome in the setting of diastolic heart failure. 2. Acute hypernatremia with Na upto 158 2. Status post extubation for acute hypoxemic respiratory failure. 3. Septic shock. 4. Pulmonary hypertension with a preserved ejection fraction on echocardiogram. 5. History of possible lung cancer. PLAN: electrolytes stable today,Na dropped to 129- will give IVF NS x 1 liter Cr normal today will continue to follow up Consultation Date/Type/Reason Admit Date/Time Aug 14, 2016 at 10:56 Initial Consult Date 08/17/2016 Type of Consultation: NEPHROLOGY Referring Provider: DRE LOBATO MD 24 HR Interval Summary Free Text/Dictation Cr normal< Na dropped to 129, no acute events overnight Exam/Review of Systems Vital Signs Vitals Vital Signs Date Time Temp Pulse Resp B/P Pulse Ox O2 Delivery O2 Flow Rate FiO2 08/29/16 15:53 98.4 97 20 134/63 96 08/29/16 10:56 5.0 08/29/16 09:40 Nasal Cannula Intake and Output 08/28/16 08/28/16 08/29/16 15:00 23:00 07:00 Intake Total 1500 ml 2006 ml Output Total 2100 ml 1850 ml Balance -600 ml 156 ml Exam GENERAL: Awake HEENT: Normal. Oropharynx clear. NECK: Jugular venous distention up to the mid neck. LUNGS: Decreased breath sounds at both lung bases, bibasilar rales present. HEART: S1, S2, tachycardia, no murmur. ABDOMEN: Soft, nontender, nondistended. Bowel sounds are present. Results Result Diagram: 08/29/16 0645 08/29/16 0645 Results 24 hrs Laboratory Tests Test 08/29/16 06:45 Anion Gap 11 Basophils # 0.1 Basophils % 0.4 Blood Urea Nitrogen 11 Calcium Level 7.3 L Carbon Dioxide Level 26 Chloride Level 96 L Creatinine 0.36 L Eosinophils # 0.3 Eosinophils % 1.9 Glucose Level 116 Hematocrit 23.1 L Hemoglobin 7.2 L Lymphocytes # 2.0 Lymphocytes % 13.8 L Mean Corpuscular Hemoglobin 25.9 L Mean Corpuscular Hemoglobin Concent 31.2 L Mean Corpuscular Volume 83.1 Mean Platelet Volume 9.3 Monocytes # 1.4 H Monocytes % 9.6 Neutrophils # 10.8 H Neutrophils % 73.1 Nucleated Red Blood Cells # 0.0 Nucleated Red Blood Cells % 0.0 Platelet Count 673 H Potassium Level 4.2 Red Blood Count 2.78 L Red Cell Distribution Width 19.3 H Sodium Level 129 L White Blood Count 14.7 H Medications Medications Current Medications Hydralazine HCl (Apresoline) 10 mg Q4H PRN IV SBP>170; Start 08/14/16 at 15:30 IV Flush (NS 10 ml) 10 ml PRN PRN IV IV PROTOCOL; Start 08/14/16 at 16:00 Collagenase (Santyl) 1 applic DAILY TOP Last administered on 08/29/16 08:53; Admin Dose 1 APPLIC; Start 08/15/16 at 09:00 Sodium Hypochlorite (Dakin'S (1/4 Strength)) 1 applic BID IRR Last administered on 08/29/16 08:51; Admin Dose 1 APPLIC; Start 08/15/16 at 13:30 Vancomycin HCl (Vancomycin Oral Syringe) 250 mg Q6 PO Last administered on 08/29 11:11; Admin Dose 250 MG; Start 08/16/16 at 18:00 Morphine Sulfate (morphine) 1 mg Q3H PRN IV PAIN Last administered on 12:57; Admin Dose 1 MG; Start 08/16/16 at 15:00 Pantoprazole (Protonix Tab) 40 mg DAILY@06 PO Last administered on 08/29/16 06 :18; Admin Dose 40 MG; Start 08/25/16 at 06:00 Mupirocin (Bactroban) 1 applic BID TOP Last administered on 08/29/16 08:50; Admin Dose 1 APPLIC; Start 08/26/16 at 21:00 DIONNE SAUCEDA MD Aug 29, 2016 15:57
[2016-08-29] MEDS ORDERED: MAGNESIUM SULFATE 2 GM/50 ML 50 ML IVPB ONE (16:00)
--- NOTE | 2016-08-29 16:02 | CONS ---
Date/Time of Note Date/Time of Note DATE: 08/29/16 TIME: 16:01 Assessment/Plan Assessment/Plan Additional Assessment/Plan Sepsis Diastolic congestive heart failure Pulmonary hypertension Preserved ejection fraction Tricuspid valve regurgitation Lung cancer -Check chest x-ray, supplement magnesium to maintain above 2.0. Fluid management as per our nephrology colleagues. Consultation Date/Type/Reason Admit Date/Time Aug 14, 2016 at 10:56 Initial Consult Date 08/14/16 Type of Consultation: cv Referring Provider: DRE LOBATO MD 24 HR Interval Summary Free Text/Dictation Patient complaining of intermittent shortness of breath. Denies chest pain but complains of back pain. Exam/Review of Systems Vital Signs Vitals Vital Signs Date Time Temp Pulse Resp B/P Pulse Ox O2 Delivery O2 Flow Rate FiO2 08/29/16 15:53 98.4 97 20 134/63 96 08/29/16 10:56 5.0 08/29/16 09:40 Nasal Cannula Intake and Output 08/28/16 08/28/16 08/29/16 15:00 23:00 07:00 Intake Total 1500 ml 2006 ml Output Total 2100 ml 1850 ml Balance -600 ml 156 ml Exam No apparent distress Constitutional: alert, frail, oriented Head: normocephalic Respiratory: other (Coarse breath sounds bilaterally, no wheezing) Cardiovascular: other (S1-S2 heard), regular rate and rhythm Gastrointestinal: bowel sounds, non-tender, other (No guarding), soft Extremities: other (No edema or cyanosis) Results Result Diagram: 08/29/16 0645 08/29/16 0645 Results 24 hrs Laboratory Tests Test 08/29/16 06:45 Anion Gap 11 Basophils # 0.1 Basophils % 0.4 Blood Urea Nitrogen 11 Calcium Level 7.3 L Carbon Dioxide Level 26 Chloride Level 96 L Creatinine 0.36 L Eosinophils # 0.3 Eosinophils % 1.9 Glucose Level 116 Hematocrit 23.1 L Hemoglobin 7.2 L Lymphocytes # 2.0 Lymphocytes % 13.8 L Mean Corpuscular Hemoglobin 25.9 L Mean Corpuscular Hemoglobin Concent 31.2 L Mean Corpuscular Volume 83.1 Mean Platelet Volume 9.3 Monocytes # 1.4 H Monocytes % 9.6 Neutrophils # 10.8 H Neutrophils % 73.1 Nucleated Red Blood Cells # 0.0 Nucleated Red Blood Cells % 0.0 Platelet Count 673 H Potassium Level 4.2 Red Blood Count 2.78 L Red Cell Distribution Width 19.3 H Sodium Level 129 L White Blood Count 14.7 H Medications Medications Current Medications Hydralazine HCl (Apresoline) 10 mg Q4H PRN IV SBP>170; Start 08/14/16 at 15:30 IV Flush (NS 10 ml) 10 ml PRN PRN IV IV PROTOCOL; Start 08/14/16 at 16:00 Collagenase (Santyl) 1 applic DAILY TOP Last administered on 08/29/16 08:53; Admin Dose 1 APPLIC; Start 08/15/16 at 09:00 Sodium Hypochlorite (Dakin'S (1/4 Strength)) 1 applic BID IRR Last administered on 08/29/16 08:51; Admin Dose 1 APPLIC; Start 08/15/16 at 13:30 Vancomycin HCl (Vancomycin Oral Syringe) 250 mg Q6 PO Last administered on 08/29 11:11; Admin Dose 250 MG; Start 08/16/16 at 18:00 Morphine Sulfate (morphine) 1 mg Q3H PRN IV PAIN Last administered on 12:57; Admin Dose 1 MG; Start 08/16/16 at 15:00 Pantoprazole (Protonix Tab) 40 mg DAILY@06 PO Last administered on 08/29/16 06 :18; Admin Dose 40 MG; Start 08/25/16 at 06:00 Mupirocin 1 applic 1 applic BID TOP Last administered on 08/29/16 08:50; Admin Dose 1 APPLIC; Start 08/26/16 at 21:00 Sodium Chloride (NS) 1,000 ml @ 50 mls/hr Q20H IV ; Start 08/29/16 at 16:00; Status Artemio Cloud DO Aug 29, 2016 16:02
[2016-08-29] MEDS: SOD CHLORIDE 0.9% 1,000 ML IV SCH (16:35)
[2016-08-30] VITALS (10 sets, daily range): BP systolic 93–146; BP diastolic 53–71; PULSE 110–160; RESP 17–20
[2016-08-30] MEDS: ALBUTEROL/IPRATROPIUM (NEB) 3 ML AMP HHN SCH ×4 (00:26→23:11)
[2016-08-30] MEDS: VANCOMYCIN HCL 250 MG/5ML POSYG PO SCH ×5 (00:32→23:03)
[2016-08-30] MEDS: morphine 2 MG INJ IV PRN ×8 (00:33→22:22)
[2016-08-30] MEDS: SODIUM HYPOCHLORITE 0.125% 473 ML BTL IRR SCH ×3 (00:33→22:27)
[2016-08-30] MEDS: PANTOPRAZOLE (EC) 40 MG TAB PO SCH (06:32)
[2016-08-30] MEDS: LEVOTHYROXINE 125 MCG TAB PO SCH (06:33)
[2016-08-30 08:16] LABS: ADD SCAN DIFF NO
[2016-08-30 08:21] LABS: BASOPHIL # 0.1 10^3/ul (0.0-0.1); BASOPHILS % 0.7 % (0.0-2.0); EOSINOPHILS # 0.3 10^3/ul (0.0-0.5); HEMATOCRIT 29.5 % (37.0-47.0); HEMOGLOBIN 9.4 g/dl (12.0-16.0); LYMPHOCYTES # 1.9 10^3/ul (0.8-2.9); LYMPHOCYTES % 13.9 % (15.0-51.0); MEAN CORPUSCULAR HEMOGLOBIN 26.4 pg (29.0-33.0); MEAN CORPUSCULAR HGB CONC 31.9 g/dl (32.0-37.0); MEAN CORPUSCULAR VOLUME 82.9 fl (82.0-101.0); MEAN PLATELET VOLUME 9.1 fl (7.4-10.4); MONOCYTE # 1.5 10^3/ul (0.3-0.9); MONOCYTES % 10.8 % (0.0-11.0); NEUTROPHIL # 9.8 10^3/ul (1.6-7.5); NEUTROPHILS % 71.2 % (39.0-77.0); PLATELET COUNT 591 10^3/UL (140-415); RED BLOOD COUNT 3.56 10^6/ul (4.20-5.40); RED CELL DISTRIBUTION WIDTH 17.7 % (11.5-14.5); WHITE BLOOD COUNT 13.8 10^3/ul (4.8-10.8)
[2016-08-30] MEDS: COLLAGENASE 30 GM TUBE TOP SCH (08:48)
[2016-08-30] MEDS: MUPIROCIN 2% 22 GM OINT TOP SCH ×2 (08:48→21:00)
[2016-08-30 08:55] LABS: CREATININE 0.36 mg/dl (0.44-1.00)
[2016-08-30 08:56] LABS: CALCIUM 7.4 mg/dl (8.4-10.2)
--- NOTE | 2016-08-30 10:42 | RADRPT ---
PROCEDURE: XR Chest 1 view. CLINICAL INDICATION: Shortness of breath TECHNIQUE: AP views of the chest were obtained. COMPARISON: August 21, [address] December 21, 2015 FINDINGS: The heart is large. Calcified atherosclerosis is noted in the aorta. The lungs are hyperexpanded. Interstitial prominence in both lungs is observed. Rounded mass-like density in the left midlung is unchanged. Patchy infiltrates in the right upper and lower lobes have mildly decreased. Mild resi dual remains. Atelectasis is seen at the left lung base. Osseous structures are intact. IMPRESSION: Cardiomegaly with calcified atherosclerosis in the aorta. Hyperexpanded lungs with continued interstitial prominence in both lungs. Interstitial prominence c ould be chronic. Findings may reflect COPD. Stable mass-like density in the left mid lung. This likely corresponds to the lingular mass seen on prior CT. Interval decrease in patchy right upper and lower lobe infiltrates. Mild residual remains. RPTAT: AA .Mariusz Vo MD, Date Time Electronically viewed and signed by .Mariusz Vo MD, on 08/30/2016 10:41 .P/
[2016-08-30] MEDS: SOD CHLORIDE 0.9% 1,000 ML IV SCH (11:19)
--- NOTE | 2016-08-30 12:38 | CONS ---
Date/Time of Note Date/Time of Note DATE: 08/30/16 TIME: 12:36 Assessment/Plan Assessment/Plan Additional Assessment/Plan 1. Acute kidney injury on possible chronic kidney disease, likely secondary to cardiorenal syndrome in the setting of diastolic heart failure. 2. Acute hypernatremia with Na upto 158 2. Status post extubation for acute hypoxemic respiratory failure. 3. Septic shock. 4. Pulmonary hypertension with a preserved ejection fraction on echocardiogram. 5. History of possible lung cancer. PLAN: electrolytes stable today,Na dropped to 129 yesteday- s/p IVF NS x 1 liter- today Na normal Cr normal today will continue to follow up Consultation Date/Type/Reason Admit Date/Time Aug 14, 2016 at 10:56 Initial Consult Date 08/17/2016 Type of Consultation: NEPHROLOGY Referring Provider: DRE LOBATO MD 24 HR Interval Summary Free Text/Dictation no acute evesnts, s/p 1liter IVF NS yesterday, today Na normal Exam/Review of Systems Vital Signs Vitals Vital Signs Date Time Temp Pulse Resp B/P Pulse Ox O2 Delivery O2 Flow Rate FiO2 08/30/16 12:05 124 08/30/16 11:42 98.4 18 124/71 97 08/30/16 10:02 Nasal Cannula 2.0 Intake and Output 08/29/16 08/29/16 08/30/16 15:00 23:00 07:00 Intake Total 1310 ml 658 ml Output Total 2400 ml 2000 ml Balance -1090 ml -1342 ml Exam GENERAL: Awake HEENT: Normal. Oropharynx clear. NECK: Jugular venous distention up to the mid neck. LUNGS: Decreased breath sounds at both lung bases, bibasilar rales present. HEART: S1, S2, tachycardia, no murmur. ABDOMEN: Soft, nontender, nondistended. Bowel sounds are present. Results Result Diagram: 08/30/16 0739 08/30/16 0739 Results 24 hrs Laboratory Tests Test 08/30/16 07:39 Anion Gap 12 Basophils # 0.1 Basophils % 0.7 Blood Urea Nitrogen 11 Calcium Level 7.4 L Carbon Dioxide Level 25 Chloride Level 103 Creatinine 0.36 L Eosinophils # 0.3 Eosinophils % 2.0 Glucose Level 100 Hematocrit 29.5 #L Hemoglobin 9.4 #L Lymphocytes # 1.9 Lymphocytes % 13.9 L Mean Corpuscular Hemoglobin 26.4 L Mean Corpuscular Hemoglobin Concent 31.9 L Mean Corpuscular Volume 82.9 Mean Platelet Volume 9.1 Monocytes # 1.5 H Monocytes % 10.8 Neutrophils # 9.8 H Neutrophils % 71.2 Nucleated Red Blood Cells # 0.0 Nucleated Red Blood Cells % 0.0 Platelet Count 591 H Potassium Level 4.0 Red Blood Count 3.56 #L Red Cell Distribution Width 17.7 H Sodium Level 136 White Blood Count 13.8 H Medications Medications Current Medications Hydralazine HCl (Apresoline) 10 mg Q4H PRN IV SBP>170; Start 08/14/16 at 15:30 IV Flush (NS 10 ml) 10 ml PRN PRN IV IV PROTOCOL; Start 08/14/16 at 16:00 Collagenase (Santyl) 1 applic DAILY TOP Last administered on 08/30/16 08:48; Admin Dose 1 APPLIC; Start 08/15/16 at 09:00 Sodium Hypochlorite (Dakin'S (1/4 Strength)) 1 applic BID IRR Last administered on 08/30/16 08:48; Admin Dose 1 APPLIC; Start 08/15/16 at 13:30 Vancomycin HCl (Vancomycin Oral Syringe) 250 mg Q6 PO Last administered on 08/30 11:16; Admin Dose 250 MG; Start 08/16/16 at 18:00 Pantoprazole (Protonix Tab) 40 mg DAILY@06 PO Last administered on 08/30/16 06 :32; Admin Dose 40 MG; Start 08/25/16 at 06:00 Mupirocin (Bactroban) 1 applic BID TOP Last administered on 08/30/16 08:48; Admin Dose 1 APPLIC; Start 08/26/16 at 21:00 Morphine Sulfate (morphine) 2 mg Q3H PRN IV PAIN Last administered on 09:41; Admin Dose 2 MG; Start 08/29/16 at 21:23 DIONNE SAUCEDA MD Aug 30, 2016 12:37
--- NOTE | 2016-08-30 14:23 | CONS ---
Date/Time of Note Date/Time of Note DATE: 08/30/16 TIME: 14:22 Assessment/Plan Assessment/Plan Chief Complaint/Hosp Course SUBJECTIVE: No events overnight. looks comfortable, no diarrhea. INDWELLINGS: 1. PEG. 2. PICC line placed on 08/14/2016. 3. George catheter. ANTIMICROBIALS: Oral vancomycin. PHYSICAL EXAMINATION: GENERAL: A fragile, cachectic elderly woman, who is in no distress. HEENT: Head atraumatic, normocephalic. Sclerae anicteric. Buccal mucosa dry. NECK: Supple. Trachea midline. CHEST: Chest rise is symmetrical. Breath sounds diminished to the bases. HEART: S1, S2. ABDOMEN: Soft. Bowel sounds present. EXTREMITIES: Without edema. SKIN: With multiple unstageable decubiti. ASSESSMENT: 1. Resolving sepsis status post shock. 2. Clostridium difficile colitis. 3. Positive urinalysis on admission, with urine culture being negative. 4. Lung cancer 5. ALLERGY TO PENICILLIN. 6. Multiple chronic wounds. 7. Cachexia. 8. Anemia. PLAN: Remains stable, continue Vanco for 8 more days, continue aspiration precautions and local wound care, repeat nares swab for mrsa DW staff Problems: Consultation Date/Type/Reason Admit Date/Time Aug 14, 2016 at 10:56 Initial Consult Date 08/14/16 Type of Consultation: id Referring Provider: DRE LOBATO MD Exam/Review of Systems Vital Signs Vitals Vital Signs Date Time Temp Pulse Resp B/P Pulse Ox O2 Delivery O2 Flow Rate FiO2 08/30/16 12:05 124 08/30/16 11:42 98.4 18 124/71 97 08/30/16 10:02 Nasal Cannula 2.0 Intake and Output 08/29/16 08/29/16 08/30/16 15:00 23:00 07:00 Intake Total 1310 ml 658 ml Output Total 2400 ml 2000 ml Balance -1090 ml -1342 ml Results Result Diagram: 08/30/16 0739 08/30/16 0739 Results 24 hrs Laboratory Tests Test 08/30/16 07:39 Anion Gap 12 Basophils # 0.1 Basophils % 0.7 Blood Urea Nitrogen 11 Calcium Level 7.4 L Carbon Dioxide Level 25 Chloride Level 103 Creatinine 0.36 L Eosinophils # 0.3 Eosinophils % 2.0 Glucose Level 100 Hematocrit 29.5 #L Hemoglobin 9.4 #L Lymphocytes # 1.9 Lymphocytes % 13.9 L Mean Corpuscular Hemoglobin 26.4 L Mean Corpuscular Hemoglobin Concent 31.9 L Mean Corpuscular Volume 82.9 Mean Platelet Volume 9.1 Monocytes # 1.5 H Monocytes % 10.8 Neutrophils # 9.8 H Neutrophils % 71.2 Nucleated Red Blood Cells # 0.0 Nucleated Red Blood Cells % 0.0 Platelet Count 591 H Potassium Level 4.0 Red Blood Count 3.56 #L Red Cell Distribution Width 17.7 H Sodium Level 136 White Blood Count 13.8 H Medications Medications Current Medications Hydralazine HCl (Apresoline) 10 mg Q4H PRN IV SBP>170; Start 08/14/16 at 15:30 IV Flush (NS 10 ml) 10 ml PRN PRN IV IV PROTOCOL; Start 08/14/16 at 16:00 Collagenase (Santyl) 1 applic DAILY TOP Last administered on 08/30/16 08:48; Admin Dose 1 APPLIC; Start 08/15/16 at 09:00 Sodium Hypochlorite (Dakin'S (1/4 Strength)) 1 applic BID IRR Last administered on 08/30/16 08:48; Admin Dose 1 APPLIC; Start 08/15/16 at 13:30 Vancomycin HCl (Vancomycin Oral Syringe) 250 mg Q6 PO Last administered on 08/30 11:16; Admin Dose 250 MG; Start 08/16/16 at 18:00 Pantoprazole (Protonix Tab) 40 mg DAILY@06 PO Last administered on 08/30/16 06 :32; Admin Dose 40 MG; Start 08/25/16 at 06:00 Mupirocin (Bactroban) 1 applic BID TOP Last administered on 08/30/16 08:48; Admin Dose 1 APPLIC; Start 08/26/16 at 21:00 Morphine Sulfate (morphine) 2 mg Q3H PRN IV PAIN Last administered on 13:00; Admin Dose 2 MG; Start 08/29/16 at 21:23 RUBIN MAYEN NP Aug 30, 2016 14:23
--- NOTE | 2016-08-30 14:55 | PN ---
Date/Time of Note Date/Time of Note DATE: 08/30/16 TIME: 14:54 Assessment/Plan VTE Prophylaxis VTE Prophylaxis Intervention: SCD's Lines/Catheters IV Catheter Type (from [facility]): PICC Line Central line still needed: Yes Urinary Cath still in place: Yes Reason Cath still needed: urinary retention Assessment/Plan Chief Complaint/Hosp Course ASSESSMENT AND PLAN: - S/P Acute hypoxic respiratory failure secondary to pneumonia, chronic obstructive pulmonary disease, and malignancy. Dr. Neri is following in pulmonary consultation. Continue bronchodilators, pulmonary toilet. Continue broad spectrum antibiotics. - Health care acquired pneumonia, status post treatment. Dr. Coleman is following in infectious disease consultation. - Severe sepsis with shock, resolved. - C-diff colitis. continue Vanco. - Hypernatremia,resolved. Dr. Zapata is following a nephrology consultation. - Chronic obstructive pulmonary disease. Continue bronchodilators. - Multiple decubitus ulcers with history of debridement. Continue wound care. - Chronic urinary retention. Continue George cath. - Left lung squamous cell carcinoma. - Anemia of chronic disease, transfuse as needed. - Congestive heart failure. Dr. Tipton is following the patient in cardiology consultation. - Coagulopathy. - Dysphagia, status post G-tube placement on 08/[address] Gonzales, GI. - Chronic pain. Continue Pepcid for peptic ulcer disease prophylaxis and sequential compression device for deep venous thrombosis prophylaxis. Further recommendations based on clinical course. Plan of care discussed with Dr. Dozier. Problems: Subjective 24 Hr Interval Summary Free Text/Dictation Patient status post blood transfusion, continues to be tachycardic at times, patient tolerates G-tube feeding well, remains afebrile. Exam/Review of Systems Vital Signs Vitals Vital Signs Date Time Temp Pulse Resp B/P Pulse Ox O2 Delivery O2 Flow Rate FiO2 08/30/16 12:05 124 08/30/16 11:42 98.4 18 124/71 97 08/30/16 10:02 Nasal Cannula 2.0 Intake and Output 08/29/16 08/29/16 08/30/16 15:00 23:00 07:00 Intake Total 1310 ml 658 ml Output Total 2400 ml 2000 ml Balance -1090 ml -1342 ml Exam PHYSICAL ASSESSMENT: GENERAL: Fragile, cachectic, elderly female, currently on supplemental oxygen. HEENT: Head is atraumatic, normocephalic. PERRLA. NECK: Supple, no thyromegaly. CHEST: Patient has diminished breath sounds with diminished air entry bilaterally. CARDIOVASCULAR: Normal S1, S2. No murmurs, gallops, clicks, rubs noted. ABDOMEN: Flat, nondistended, nontender. Bowel sounds present. GT. EXTREMITIES: There is no edema, clubbing, cyanosis. Pulses equal bilaterally 2 +. SKIN: Patient has multiple pressure ulcers including sacral wound. NEUROLOGICAL: Alert and oriented to name and situation, follows immediate commands. Results Result Diagram: 08/30/16 0739 08/30/16 0739 Results 24 hrs Laboratory Tests Test 08/30/16 07:39 Anion Gap 12 Basophils # 0.1 Basophils % 0.7 Blood Urea Nitrogen 11 Calcium Level 7.4 L Carbon Dioxide Level 25 Chloride Level 103 Creatinine 0.36 L Eosinophils # 0.3 Eosinophils % 2.0 Glucose Level 100 Hematocrit 29.5 #L Hemoglobin 9.4 #L Lymphocytes # 1.9 Lymphocytes % 13.9 L Mean Corpuscular Hemoglobin 26.4 L Mean Corpuscular Hemoglobin Concent 31.9 L Mean Corpuscular Volume 82.9 Mean Platelet Volume 9.1 Monocytes # 1.5 H Monocytes % 10.8 Neutrophils # 9.8 H Neutrophils % 71.2 Nucleated Red Blood Cells # 0.0 Nucleated Red Blood Cells % 0.0 Platelet Count 591 H Potassium Level 4.0 Red Blood Count 3.56 #L Red Cell Distribution Width 17.7 H Sodium Level 136 White Blood Count 13.8 H Medications Medications Current Medications Hydralazine HCl (Apresoline) 10 mg Q4H PRN IV SBP>170; Start 08/14/16 at 15:30 IV Flush (NS 10 ml) 10 ml PRN PRN IV IV PROTOCOL; Start 08/14/16 at 16:00 Collagenase (Santyl) 1 applic DAILY TOP Last administered on 08/30/16 08:48; Admin Dose 1 APPLIC; Start 08/15/16 at 09:00 Sodium Hypochlorite (Dakin'S (1/4 Strength)) 1 applic BID IRR Last administered on 08/30/16 08:48; Admin Dose 1 APPLIC; Start 08/15/16 at 13:30 Vancomycin HCl (Vancomycin Oral Syringe) 250 mg Q6 PO Last administered on 08/30 11:16; Admin Dose 250 MG; Start 08/16/16 at 18:00 Pantoprazole (Protonix Tab) 40 mg DAILY@06 PO Last administered on 08/30/16 06 :32; Admin Dose 40 MG; Start 08/25/16 at 06:00 Mupirocin (Bactroban) 1 applic BID TOP Last administered on 08/30/16 08:48; Admin Dose 1 APPLIC; Start 08/26/16 at 21:00 Morphine Sulfate (morphine) 2 mg Q3H PRN IV PAIN Last administered on 13:00; Admin Dose 2 MG; Start 08/29/16 at 21:23 REBECCA ISLAS Aug 30, 2016 14:55
[2016-08-30] MEDS ORDERED: MAGNESIUM SULFATE 2 GM/50 ML 50 ML IVPB ONE (18:30)
[2016-08-31] VITALS (10 sets, daily range): BP systolic 93–123; BP diastolic 52–84; PULSE 94–125; RESP 16–18
[2016-08-31] MEDS: morphine 2 MG INJ IV PRN ×7 (02:27→23:54)
[2016-08-31] MEDS: VANCOMYCIN HCL 250 MG/5ML POSYG PO SCH ×4 (05:30→23:54)
[2016-08-31] MEDS: PANTOPRAZOLE (EC) 40 MG TAB PO SCH (05:30)
[2016-08-31] MEDS: LEVOTHYROXINE 125 MCG TAB PO SCH (06:06)
[2016-08-31 06:50] LABS: POTASSIUM 4.6 mmol/L (3.5-5.1)
[2016-08-31 06:52] LABS: CREATININE 0.35 mg/dl (0.44-1.00)
[2016-08-31 06:53] LABS: CALCIUM 7.3 mg/dl (8.4-10.2)
[2016-08-31] MEDS: ALBUTEROL/IPRATROPIUM (NEB) 3 ML AMP HHN SCH ×2 (08:50→16:50)
[2016-08-31] MEDS: SODIUM HYPOCHLORITE 0.125% 473 ML BTL IRR SCH ×2 (09:25→20:42)
[2016-08-31] MEDS: MUPIROCIN 2% 22 GM OINT TOP SCH ×2 (09:26→20:42)
[2016-08-31] MEDS: COLLAGENASE 30 GM TUBE TOP SCH (09:27)
--- NOTE | 2016-08-31 10:50 | CONS ---
Date/Time of Note Date/Time of Note DATE: 08/31/16 TIME: 10:46 Assessment/Plan Assessment/Plan Additional Assessment/Plan 1. Acute kidney injury on possible chronic kidney disease, likely secondary to cardiorenal syndrome in the setting of diastolic heart failure. 2. Acute hypernatremia 2. Status post extubation for acute hypoxemic respiratory failure. 3. Septic shock. 4. Pulmonary hypertension with a preserved ejection fraction on echocardiogram. 5. History of possible lung cancer. PLAN: electrolytes stable today,Na dropped to 129 - s/p IVF NS x 1 liter on 08/29/2016 - today Na normal Cr normal today will continue to follow up Consultation Date/Type/Reason Admit Date/Time Aug 14, 2016 at 10:56 Initial Consult Date 08/17/2016 Type of Consultation: NEPHROLOGY Referring Provider: DRE LOBATO MD 24 HR Interval Summary Free Text/Dictation Na improved to normal, BP stable, Cr normal, Pt c/o SOB Exam/Review of Systems Vital Signs Vitals Vital Signs Date Time Temp Pulse Resp B/P Pulse Ox O2 Delivery O2 Flow Rate FiO2 08/31/16 08:02 101 08/31/16 08:02 98.3 16 99/63 93 08/31/16 00:28 2.0 08/30/16 23:11 Nasal Cannula Intake and Output 08/30/16 08/30/16 08/31/16 15:00 23:00 07:00 Intake Total 1550 ml 950 ml Output Total 1500 ml 1300 ml Balance 50 ml -350 ml Exam GENERAL: Awake HEENT: Normal. Oropharynx clear. NECK: Supple LUNGS: Decreased breath sounds at both lung bases, bibasilar rales present. HEART: S1, S2, tachycardia, no murmur. ABDOMEN: Soft, nontender, nondistended. Bowel sounds are present. Results Result Diagram: 08/30/16 0739 08/31/16 0510 Results 24 hrs Laboratory Tests Test 08/31/16 05:00 08/31/16 05:10 Magnesium Level 2.3 Anion Gap 14 Blood Urea Nitrogen 12 Calcium Level 7.3 L Carbon Dioxide Level 26 Chloride Level 102 Creatinine 0.35 L Glucose Level 98 Potassium Level 4.6 Sodium Level 137 Medications Medications Current Medications Hydralazine HCl (Apresoline) 10 mg Q4H PRN IV SBP>170; Start 08/14/16 at 15:30 IV Flush (NS 10 ml) 10 ml PRN PRN IV IV PROTOCOL; Start 08/14/16 at 16:00 Collagenase (Santyl) 1 applic DAILY TOP Last administered on 08/31/16 09:27; Admin Dose 1 APPLIC; Start 08/15/16 at 09:00 Sodium Hypochlorite (Dakin'S (1/4 Strength)) 1 applic BID IRR Last administered on 08/31/16 09:25; Admin Dose 1 APPLIC; Start 08/15/16 at 13:30 Vancomycin HCl (Vancomycin Oral Syringe) 250 mg Q6 PO Last administered on 08/31 05:30; Admin Dose 250 MG; Start 08/16/16 at 18:00 Pantoprazole (Protonix Tab) 40 mg DAILY@06 PO Last administered on 08/31/16 05 :30; Admin Dose 40 MG; Start 08/25/16 at 06:00 Mupirocin (Bactroban) 1 applic BID TOP Last administered on 08/31/16 09:26; Admin Dose 1 APPLIC; Start 08/26/16 at 21:00 Morphine Sulfate (morphine) 2 mg Q3H PRN IV PAIN Last administered on 09:26; Admin Dose 2 MG; Start 08/29/16 at 21:23 DIONNE SAUCEDA MD Aug 31, 2016 10:50
--- NOTE | 2016-08-31 14:49 | PN ---
Date/Time of Note Date/Time of Note DATE: 08/31/16 TIME: 14:46 Assessment/Plan VTE Prophylaxis VTE Prophylaxis Intervention: SCD's Lines/Catheters IV Catheter Type (from Nrsg): PICC Line Central line still needed: No Urinary Cath still in place: Yes Reason Cath still needed: urinary retention Assessment/Plan Assessment/Plan Sepsis Diastolic congestive heart failure Pulmonary hypertension Preserved ejection fraction Tricuspid valve regurgitation Lung cancer Fluid management as per our nephrology colleagues. continue current therapy Subjective 24 Hr Interval Summary Free Text/Dictation The patient without change Exam/Review of Systems Vital Signs Vitals Vital Signs Date Time Temp Pulse Resp B/P Pulse Ox O2 Delivery O2 Flow Rate FiO2 08/31/16 13:30 116 08/31/16 11:48 98.2 18 108/70 96 08/31/16 00:28 2.0 08/30/16 23:11 Nasal Cannula Intake and Output 08/30/16 08/30/16 08/31/16 15:00 23:00 07:00 Intake Total 1550 ml 950 ml Output Total 1500 ml 1300 ml Balance 50 ml -350 ml Results Result Diagram: 08/30/16 0739 08/31/16 0510 Results 24 hrs Laboratory Tests Test 08/31/16 05:00 08/31/16 05:10 Magnesium Level 2.3 Anion Gap 14 Blood Urea Nitrogen 12 Calcium Level 7.3 L Carbon Dioxide Level 26 Chloride Level 102 Creatinine 0.35 L Glucose Level 98 Potassium Level 4.6 Sodium Level 137 Medications Medications Current Medications Hydralazine HCl (Apresoline) 10 mg Q4H PRN IV SBP>170; Start 08/14/16 at 15:30 IV Flush (NS 10 ml) 10 ml PRN PRN IV IV PROTOCOL; Start 08/14/16 at 16:00 Collagenase (Santyl) 1 applic DAILY TOP Last administered on 08/31/16 09:27; Admin Dose 1 APPLIC; Start 08/15/16 at 09:00 Sodium Hypochlorite (Dakin'S (1/4 Strength)) 1 applic BID IRR Last administered on 08/31/16 09:25; Admin Dose 1 APPLIC; Start 08/15/16 at 13:30 Vancomycin HCl (Vancomycin Oral Syringe) 250 mg Q6 PO Last administered on 08/31 12:23; Admin Dose 250 MG; Start 08/16/16 at 18:00 Pantoprazole (Protonix Tab) 40 mg DAILY@06 PO Last administered on 08/31/16 05 :30; Admin Dose 40 MG; Start 08/25/16 at 06:00 Mupirocin (Bactroban) 1 applic BID TOP Last administered on 08/31/16 09:26; Admin Dose 1 APPLIC; Start 08/26/16 at 21:00 Morphine Sulfate (morphine) 2 mg Q3H PRN IV PAIN Last administered on 12:23; Admin Dose 2 MG; Start 08/29/16 at 21:23 RALPH LUCAS MD Aug 31, 2016 14:49
--- NOTE | 2016-08-31 15:33 | PN ---
Date/Time of Note Date/Time of Note DATE: 08/31/16 TIME: 15:30 Assessment/Plan VTE Prophylaxis VTE Prophylaxis Intervention: other Lines/Catheters IV Catheter Type (from [facility]): PICC Line Urinary Cath still in place: Yes Assessment/Plan Assessment/Plan - S/P Acute hypoxic respiratory failure secondary to pneumonia, chronic obstructive pulmonary disease, and malignancy. Dr. Neri is following in pulmonary consultation. Continue bronchodilators, pulmonary toilet. Continue broad spectrum antibiotics. - Health care acquired pneumonia, status post treatment. Dr. Coleman is following in infectious disease consultation. - Severe sepsis with shock, resolved. - C-diff colitis. continue Vanco. - Hypernatremia,resolved. Dr. Zapata is following a nephrology consultation. - Chronic obstructive pulmonary disease. Continue bronchodilators. - Multiple decubitus ulcers with history of debridement. Continue wound care. - Chronic urinary retention. Continue George cath. - Left lung squamous cell carcinoma. - Anemia of chronic disease, transfuse as needed. - Congestive heart failure. Dr. Tipton is following the patient in cardiology consultation. - Coagulopathy. - Dysphagia, status post G-tube placement on 08/[address] Gonzales, GI. - Chronic pain. Continue Pepcid for peptic ulcer disease prophylaxis and sequential compression device for deep venous thrombosis prophylaxis. Further recommendations based on clinical course. Plan of care discussed with Dr. Dozier. Subjective 24 Hr Interval Summary Eyes: no complaints ENT: no complaints Respiratory: no complaints Cardiovascular: no complaints Gastrointestinal: no complaints Genitourinary: no complaints Musculoskeletal: bone/joint pain Skin: no complaints Neurologic: no complaints Exam/Review of Systems Vital Signs Vitals Vital Signs Date Time Temp Pulse Resp B/P Pulse Ox O2 Delivery O2 Flow Rate FiO2 08/31/16 13:30 116 08/31/16 11:48 98.2 18 108/70 96 08/31/16 00:28 2.0 08/30/16 23:11 Nasal Cannula Intake and Output 08/30/16 08/30/16 08/31/16 15:00 23:00 07:00 Intake Total 1550 ml 950 ml Output Total 1500 ml 1300 ml Balance 50 ml -350 ml Exam Constitutional: alert, oriented (x1 to name, confused at times, follows simple commands) Psych: nl mood/affect Head: atraumatic Eyes: EOMI, PERRL, nl sclera ENMT: nl external ears & nose Neck: non-tender Respiratory: clear to auscultation Cardiovascular: nl pulses Gastrointestinal: non-tender, soft Musculoskeletal: other Extremities: normal pulses Neurological: nl speech, other Lymph: nontender Results Result Diagram: 08/30/16 0739 08/31/16 0510 Results 24 hrs Laboratory Tests Test 08/31/16 05:00 08/31/16 05:10 Magnesium Level 2.3 Anion Gap 14 Blood Urea Nitrogen 12 Calcium Level 7.3 L Carbon Dioxide Level 26 Chloride Level 102 Creatinine 0.35 L Glucose Level 98 Potassium Level 4.6 Sodium Level 137 Medications Medications Current Medications Hydralazine HCl (Apresoline) 10 mg Q4H PRN IV SBP>170; Start 08/14/16 at 15:30 IV Flush (NS 10 ml) 10 ml PRN PRN IV IV PROTOCOL; Start 08/14/16 at 16:00 Collagenase (Santyl) 1 applic DAILY TOP Last administered on 08/31/16 09:27; Admin Dose 1 APPLIC; Start 08/15/16 at 09:00 Sodium Hypochlorite (Dakin'S (1/4 Strength)) 1 applic BID IRR Last administered on 08/31/16 09:25; Admin Dose 1 APPLIC; Start 08/15/16 at 13:30 Vancomycin HCl (Vancomycin Oral Syringe) 250 mg Q6 PO Last administered on 08/31 12:23; Admin Dose 250 MG; Start 08/16/16 at 18:00 Pantoprazole (Protonix Tab) 40 mg DAILY@06 PO Last administered on 08/31/16 05 :30; Admin Dose 40 MG; Start 08/25/16 at 06:00 Mupirocin (Bactroban) 1 applic BID TOP Last administered on 08/31/16 09:26; Admin Dose 1 APPLIC; Start 08/26/16 at 21:00 Morphine Sulfate (morphine) 2 mg Q3H PRN IV PAIN Last administered on 12:23; Admin Dose 2 MG; Start 08/29/16 at 21:23 VIKASH CASTANEDA Aug 31, 2016 15:33
--- NOTE | 2016-08-31 15:58 | CONS ---
Date/Time of Note Date/Time of Note DATE: 08/31/16 TIME: 15:57 Assessment/Plan Assessment/Plan Chief Complaint/Hosp Course SUBJECTIVE: No events overnight. looks comfortable, no diarrhea. INDWELLINGS: 1. PEG. 2. PICC line 08/14/2016. 3. George catheter. ANTIMICROBIALS: Oral vancomycin. PHYSICAL EXAMINATION: GENERAL: A fragile, cachectic elderly woman, who is in no distress. HEENT: Head atraumatic, normocephalic. Sclerae anicteric. Buccal mucosa dry. NECK: Supple. Trachea midline. CHEST: Chest rise is symmetrical. Breath sounds diminished to the bases. HEART: S1, S2. ABDOMEN: Soft. Bowel sounds present. EXTREMITIES: Without edema. SKIN: With multiple unstageable decubiti. ASSESSMENT: 1. Resolving sepsis status post shock. 2. Clostridium difficile colitis. 3. Positive urinalysis on admission, with urine culture being negative. 4. Lung cancer 5. ALLERGY TO PENICILLIN. 6. Multiple chronic wounds. 7. Cachexia. 8. Anemia. PLAN: Remains stable, continue Vanco for 7 more days, continue aspiration precautions and local wound care, f/u repeat nares swab for mrsa [facility] staff Problems: Consultation Date/Type/Reason Admit Date/Time Aug 14, 2016 at 10:56 Initial Consult Date 08/14/16 Type of Consultation: ID Referring Provider: DRE LOBATO MD Exam/Review of Systems Vital Signs Vitals Vital Signs Date Time Temp Pulse Resp B/P Pulse Ox O2 Delivery O2 Flow Rate FiO2 08/31/16 15:42 98.4 110 18 93/52 97 08/31/16 00:28 2.0 08/30/16 23:11 Nasal Cannula Intake and Output 08/30/16 08/30/16 08/31/16 15:00 23:00 07:00 Intake Total 1550 ml 950 ml Output Total 1500 ml 1300 ml Balance 50 ml -350 ml Results Result Diagram: 08/30/16 0739 08/31/16 0510 Results 24 hrs Laboratory Tests Test 08/31/16 05:00 08/31/16 05:10 Magnesium Level 2.3 Anion Gap 14 Blood Urea Nitrogen 12 Calcium Level 7.3 L Carbon Dioxide Level 26 Chloride Level 102 Creatinine 0.35 L Glucose Level 98 Potassium Level 4.6 Sodium Level 137 Medications Medications Current Medications Hydralazine HCl (Apresoline) 10 mg Q4H PRN IV SBP>170; Start 08/14/16 at 15:30 IV Flush (NS 10 ml) 10 ml PRN PRN IV IV PROTOCOL; Start 08/14/16 at 16:00 Collagenase (Santyl) 1 applic DAILY TOP Last administered on 08/31/16 09:27; Admin Dose 1 APPLIC; Start 08/15/16 at 09:00 Sodium Hypochlorite (Dakin'S (1/4 Strength)) 1 applic BID IRR Last administered on 08/31/16 09:25; Admin Dose 1 APPLIC; Start 08/15/16 at 13:30 Vancomycin HCl (Vancomycin Oral Syringe) 250 mg Q6 PO Last administered on 08/31 12:23; Admin Dose 250 MG; Start 08/16/16 at 18:00 Pantoprazole (Protonix Tab) 40 mg DAILY@06 PO Last administered on 08/31/16 05 :30; Admin Dose 40 MG; Start 08/25/16 at 06:00 Mupirocin (Bactroban) 1 applic BID TOP Last administered on 08/31/16 09:26; Admin Dose 1 APPLIC; Start 08/26/16 at 21:00 Morphine Sulfate (morphine) 2 mg Q3H PRN IV PAIN Last administered on 12:23; Admin Dose 2 MG; Start 08/29/16 at 21:23 RUBIN MAYEN NP Aug 31, 2016 15:58
[2016-09-01] VITALS (11 sets, daily range): BP systolic 94–113; BP diastolic 61–75; PULSE 110–128; RESP 17–18
[2016-09-01] MEDS: ALBUTEROL/IPRATROPIUM (NEB) 3 ML AMP HHN SCH ×3 (00:42→16:05)
[2016-09-01] MEDS: morphine 2 MG INJ IV PRN ×6 (04:04→22:05)
[2016-09-01] MEDS: PANTOPRAZOLE (EC) 40 MG TAB PO SCH (06:07)
[2016-09-01] MEDS: VANCOMYCIN HCL 250 MG/5ML POSYG PO SCH ×3 (06:07→17:39)
[2016-09-01] MEDS: LEVOTHYROXINE 125 MCG TAB PO SCH (06:10)
[2016-09-01 07:40] LABS: ADD SCAN DIFF NO
[2016-09-01 07:47] LABS: ABNORMAL IP MESSAGE 1; BASOPHIL # 0.1 10^3/ul (0.0-0.1); BASOPHILS % 0.7 % (0.0-2.0); EOSINOPHILS # 0.3 10^3/ul (0.0-0.5); EOSINOPHILS % 2.4 % (0.0-7.0); HEMATOCRIT 29.9 % (37.0-47.0); HEMOGLOBIN 9.4 g/dl (12.0-16.0); LYMPHOCYTES # 2.7 10^3/ul (0.8-2.9); LYMPHOCYTES % 19.6 % (15.0-51.0); MEAN CORPUSCULAR HEMOGLOBIN 26.6 pg (29.0-33.0); MEAN CORPUSCULAR HGB CONC 31.4 g/dl (32.0-37.0); MEAN CORPUSCULAR VOLUME 84.5 fl (82.0-101.0); MEAN PLATELET VOLUME 9.5 fl (7.4-10.4); MONOCYTE # 1.8 10^3/ul (0.3-0.9); MONOCYTES % 13.3 % (0.0-11.0); NEUTROPHIL # 8.6 10^3/ul (1.6-7.5); PLATELET COUNT 575 10^3/UL (140-415); RED BLOOD COUNT 3.54 10^6/ul (4.20-5.40); RED CELL DISTRIBUTION WIDTH 18.4 % (11.5-14.5); WHITE BLOOD COUNT 13.8 10^3/ul (4.8-10.8)
[2016-09-01 08:08] LABS: POTASSIUM 3.9 mmol/L (3.5-5.1)
[2016-09-01 08:11] LABS: CREATININE 0.39 mg/dl (0.44-1.00)
[2016-09-01 08:12] LABS: CALCIUM 7.8 mg/dl (8.4-10.2)
[2016-09-01] MEDS: MUPIROCIN 2% 22 GM OINT TOP SCH ×2 (08:29→21:53)
[2016-09-01] MEDS: COLLAGENASE 30 GM TUBE TOP SCH (08:29)
[2016-09-01] MEDS: SODIUM HYPOCHLORITE 0.125% 473 ML BTL IRR SCH ×2 (08:29→21:53)
--- NOTE | 2016-09-01 12:57 | CONS ---
Date/Time of Note Date/Time of Note DATE: 09/01/16 TIME: 12:53 Assessment/Plan Assessment/Plan Additional Assessment/Plan Sepsis Diastolic congestive heart failure Pulmonary hypertension Preserved ejection fraction Tricuspid valve regurgitation Lung cancer -Patient with brief episodes of SVT, with start low-dose beta-belinda as blood pressure and respiratory status permits. Fluid management as per our nephrology colleagues Consultation Date/Type/Reason Admit Date/Time Aug 14, 2016 at 10:56 Initial Consult Date 08/14/16 Type of Consultation: cv Referring Provider: DRE LOBATO MD 24 HR Interval Summary Free Text/Dictation Denies shortness of breath, complaining of fatigue Exam/Review of Systems Vital Signs Vitals Vital Signs Date Time Temp Pulse Resp B/P Pulse Ox O2 Delivery O2 Flow Rate FiO2 09/01/16 12:10 128 09/01/16 11:53 97.8 18 97/65 95 09/01/16 00:42 Nasal Cannula 2.0 Intake and Output 08/31/16 08/31/16 09/01/16 15:00 23:00 07:00 Intake Total 1660 ml Output Total 700 ml Balance 960 ml Exam No apparent distress Constitutional: alert, frail, oriented Head: normocephalic Neck: supple Respiratory: other (Coarse breath sounds bilaterally, no wheezing) Cardiovascular: other (S1-S2 heard), regular rate and rhythm Gastrointestinal: bowel sounds, non-tender, other (No guarding), soft Extremities: other (No edema or cyanosis) Results Result Diagram: 09/01/16 0618 09/01/16 0618 Results 24 hrs Laboratory Tests Test 09/01/16 06:18 Anion Gap 12 Basophils # 0.1 Basophils % 0.7 Blood Urea Nitrogen 13 Calcium Level 7.8 L Carbon Dioxide Level 27 Chloride Level 101 Creatinine 0.39 L Eosinophils # 0.3 Eosinophils % 2.4 Glucose Level 99 Hematocrit 29.9 L Hemoglobin 9.4 L Lymphocytes # 2.7 Lymphocytes % 19.6 Mean Corpuscular Hemoglobin 26.6 L Mean Corpuscular Hemoglobin Concent 31.4 L Mean Corpuscular Volume 84.5 Mean Platelet Volume 9.5 Monocytes # 1.8 H Monocytes % 13.3 H Neutrophils # 8.6 H Neutrophils % 62.0 Nucleated Red Blood Cells # 0.0 Nucleated Red Blood Cells % 0.0 Platelet Count 575 H Potassium Level 3.9 Red Blood Count 3.54 L Red Cell Distribution Width 18.4 H Sodium Level 136 White Blood Count 13.8 H Medications Medications Current Medications Hydralazine HCl (Apresoline) 10 mg Q4H PRN IV SBP>170; Start 08/14/16 at 15:30 IV Flush (NS 10 ml) 10 ml PRN PRN IV IV PROTOCOL; Start 08/14/16 at 16:00 Collagenase (Santyl) 1 applic DAILY TOP Last administered on 09/01/16 08:29; Admin Dose 1 APPLIC; Start 08/15/16 at 09:00 Sodium Hypochlorite (Dakin'S (1/4 Strength)) 1 applic BID IRR Last administered on 09/01/16 08:29; Admin Dose 1 APPLIC; Start 08/15/16 at 13:30 Vancomycin HCl (Vancomycin Oral Syringe) 250 mg Q6 PO Last administered on 09/01 11:38; Admin Dose 250 MG; Start 08/16/16 at 18:00 Pantoprazole (Protonix Tab) 40 mg DAILY@06 PO Last administered on 09/01/16 06 :07; Admin Dose 40 MG; Start 08/25/16 at 06:00 Mupirocin (Bactroban) 1 applic BID TOP Last administered on 09/01/16 08:29; Admin Dose 1 APPLIC; Start 08/26/16 at 21:00 Morphine Sulfate (morphine) 2 mg Q3H PRN IV PAIN Last administered on 11:38; Admin Dose 2 MG; Start 08/29/16 at 21:23 Artemio Tipton DO Sep 01, 2016 12:57
--- NOTE | 2016-09-01 15:49 | CONS ---
Date/Time of Note Date/Time of Note DATE: 09/01/16 TIME: 15:47 Assessment/Plan Assessment/Plan Chief Complaint/Hosp Course SUBJECTIVE: No events overnight. looks comfortable, no fevers INDWELLINGS: 1. PEG. 2. PICC line 08/14/2016. 3. George catheter. ANTIMICROBIALS: Oral vancomycin. PHYSICAL EXAMINATION: GENERAL: A fragile, cachectic elderly woman, who is in no distress. HEENT: Head atraumatic, normocephalic. Sclerae anicteric. Buccal mucosa dry. NECK: Supple. Trachea midline. CHEST: Chest rise is symmetrical. Breath sounds diminished to the bases. HEART: S1, S2. ABDOMEN: Soft. Bowel sounds present. EXTREMITIES: Without edema. SKIN: With multiple unstageable decubiti. ASSESSMENT: 1. Status post septic shock. 2. Clostridium difficile colitis. 3. Positive urinalysis on admission, with urine culture being negative. 4. Lung cancer 5. ALLERGY TO PENICILLIN. 6. Multiple chronic wounds. 7. Cachexia. 8. Anemia. 9. MRSA + nares PLAN: Remains stable, add Doxycycline daily and Hibiclens baths daily, continue PO Vanco for 6 more days, continue aspiration precautions and local wound care DW staff Problems: Consultation Date/Type/Reason Admit Date/Time Aug 14, 2016 at 10:56 Initial Consult Date 08/14/16 Type of Consultation: ID Referring Provider: DRE LOBATO MD Exam/Review of Systems Vital Signs Vitals Vital Signs Date Time Temp Pulse Resp B/P Pulse Ox O2 Delivery O2 Flow Rate FiO2 09/01/16 12:10 128 09/01/16 11:53 97.8 18 97/65 95 09/01/16 00:42 Nasal Cannula 2.0 Intake and Output 08/31/16 08/31/16 09/01/16 15:00 23:00 07:00 Intake Total 1660 ml Output Total 700 ml Balance 960 ml Results Result Diagram: 09/01/16 0618 09/01/16 0618 Results 24 hrs Laboratory Tests Test 09/01/16 06:18 Anion Gap 12 Basophils # 0.1 Basophils % 0.7 Blood Urea Nitrogen 13 Calcium Level 7.8 L Carbon Dioxide Level 27 Chloride Level 101 Creatinine 0.39 L Eosinophils # 0.3 Eosinophils % 2.4 Glucose Level 99 Hematocrit 29.9 L Hemoglobin 9.4 L Lymphocytes # 2.7 Lymphocytes % 19.6 Mean Corpuscular Hemoglobin 26.6 L Mean Corpuscular Hemoglobin Concent 31.4 L Mean Corpuscular Volume 84.5 Mean Platelet Volume 9.5 Monocytes # 1.8 H Monocytes % 13.3 H Neutrophils # 8.6 H Neutrophils % 62.0 Nucleated Red Blood Cells # 0.0 Nucleated Red Blood Cells % 0.0 Platelet Count 575 H Potassium Level 3.9 Red Blood Count 3.54 L Red Cell Distribution Width 18.4 H Sodium Level 136 White Blood Count 13.8 H Medications Medications Current Medications Hydralazine HCl (Apresoline) 10 mg Q4H PRN IV SBP>170; Start 08/14/16 at 15:30 IV Flush (NS 10 ml) 10 ml PRN PRN IV IV PROTOCOL; Start 08/14/16 at 16:00 Collagenase (Santyl) 1 applic DAILY TOP Last administered on 09/01/16 08:29; Admin Dose 1 APPLIC; Start 08/15/16 at 09:00 Sodium Hypochlorite (Dakin'S (1/4 Strength)) 1 applic BID IRR Last administered on 09/01/16 08:29; Admin Dose 1 APPLIC; Start 08/15/16 at 13:30 Vancomycin HCl (Vancomycin Oral Syringe) 250 mg Q6 PO Last administered on 09/01 11:38; Admin Dose 250 MG; Start 08/16/16 at 18:00 Pantoprazole (Protonix Tab) 40 mg DAILY@06 PO Last administered on 09/01/16 06 :07; Admin Dose 40 MG; Start 08/25/16 at 06:00 Mupirocin (Bactroban) 1 applic BID TOP Last administered on 09/01/16 08:29; Admin Dose 1 APPLIC; Start 08/26/16 at 21:00 Morphine Sulfate (morphine) 2 mg Q3H PRN IV PAIN Last administered on 11:38; Admin Dose 2 MG; Start 08/29/16 at 21:23 Metoprolol Tartrate (Lopressor) 12.5 mg BID PO ; Start 09/01/16 at 21:00 Doxycycline Hyclate (Vibramycin) 100 mg DAILY PO ; Start 09/01/16 at 14:00 RUBIN MAYEN NP Sep 01, 2016 15:49
[2016-09-01] MEDS: DOXYCYCLINE 100 MG TAB PO SCH (15:55)
--- NOTE | 2016-09-01 17:15 | CONS ---
Date/Time of Note Date/Time of Note DATE: 09/01/16 TIME: 17:14 Assessment/Plan Assessment/Plan Additional Assessment/Plan 1. Acute kidney injury on possible chronic kidney disease, likely secondary to cardiorenal syndrome in the setting of diastolic heart failure. 2. Acute hypernatremia 2. Status post extubation for acute hypoxemic respiratory failure. 3. Septic shock. 4. Pulmonary hypertension with a preserved ejection fraction on echocardiogram. 5. History of possible lung cancer. PLAN: electrolytes stable today Cr normal today will continue to follow up Consultation Date/Type/Reason Admit Date/Time Aug 14, 2016 at 10:56 Initial Consult Date 08/17/2016 Type of Consultation: NEPHROLOGY Referring Provider: DRE LOBATO MD Exam/Review of Systems Vital Signs Vitals Vital Signs Date Time Temp Pulse Resp B/P Pulse Ox O2 Delivery O2 Flow Rate FiO2 09/01/16 16:38 98.2 80 18 108/74 80 09/01/16 16:14 2.0 09/01/16 15:05 Nasal Cannula Intake and Output 08/31/16 08/31/16 09/01/16 15:00 23:00 07:00 Intake Total 1660 ml Output Total 700 ml Balance 960 ml Exam GENERAL: Awake HEENT: Normal. Oropharynx clear. NECK: Supple LUNGS: Decreased breath sounds at both lung bases, bibasilar rales present. HEART: S1, S2, tachycardia, no murmur. ABDOMEN: Soft, nontender, nondistended. Bowel sounds are present. Results Result Diagram: 09/01/16 0618 09/01/16 0618 Results 24 hrs Laboratory Tests Test 09/01/16 06:18 Anion Gap 12 Basophils # 0.1 Basophils % 0.7 Blood Urea Nitrogen 13 Calcium Level 7.8 L Carbon Dioxide Level 27 Chloride Level 101 Creatinine 0.39 L Eosinophils # 0.3 Eosinophils % 2.4 Glucose Level 99 Hematocrit 29.9 L Hemoglobin 9.4 L Lymphocytes # 2.7 Lymphocytes % 19.6 Mean Corpuscular Hemoglobin 26.6 L Mean Corpuscular Hemoglobin Concent 31.4 L Mean Corpuscular Volume 84.5 Mean Platelet Volume 9.5 Monocytes # 1.8 H Monocytes % 13.3 H Neutrophils # 8.6 H Neutrophils % 62.0 Nucleated Red Blood Cells # 0.0 Nucleated Red Blood Cells % 0.0 Platelet Count 575 H Potassium Level 3.9 Red Blood Count 3.54 L Red Cell Distribution Width 18.4 H Sodium Level 136 White Blood Count 13.8 H Medications Medications Current Medications Hydralazine HCl (Apresoline) 10 mg Q4H PRN IV SBP>170; Start 08/14/16 at 15:30 IV Flush (NS 10 ml) 10 ml PRN PRN IV IV PROTOCOL; Start 08/14/16 at 16:00 Collagenase (Santyl) 1 applic DAILY TOP Last administered on 09/01/16 08:29; Admin Dose 1 APPLIC; Start 08/15/16 at 09:00 Sodium Hypochlorite (Dakin'S (1/4 Strength)) 1 applic BID IRR Last administered on 09/01/16 08:29; Admin Dose 1 APPLIC; Start 08/15/16 at 13:30 Vancomycin HCl (Vancomycin Oral Syringe) 250 mg Q6 PO Last administered on 09/01 11:38; Admin Dose 250 MG; Start 08/16/16 at 18:00 Pantoprazole (Protonix Tab) 40 mg DAILY@06 PO Last administered on 09/01/16 06 :07; Admin Dose 40 MG; Start 08/25/16 at 06:00 Mupirocin (Bactroban) 1 applic BID TOP Last administered on 09/01/16 08:29; Admin Dose 1 APPLIC; Start 08/26/16 at 21:00 Morphine Sulfate (morphine) 2 mg Q3H PRN IV PAIN Last administered on 15:55; Admin Dose 2 MG; Start 08/29/16 at 21:23 Metoprolol Tartrate (Lopressor) 12.5 mg BID PO ; Start 09/01/16 at 21:00 Doxycycline Hyclate (Vibramycin) 100 mg DAILY PO Last administered on 15:55; Admin Dose 100 MG; Start 09/01/16 at 14:00 DIONNE SAUCEDA MD Sep 01, 2016 17:14
--- NOTE | 2016-09-01 19:41 | PN ---
Date/Time of Note Date/Time of Note DATE: 09/01/16 TIME: 19:39 Assessment/Plan VTE Prophylaxis VTE Prophylaxis Intervention: SCD's Lines/Catheters IV [facility] Type (from [facility]): PICC Line Central line still needed: Yes Urinary Cath still in place: Yes Reason Cath still needed: urinary retention Assessment/Plan Chief Complaint/Hosp Course ASSESSMENT AND PLAN: - S/P Acute hypoxic respiratory failure secondary to pneumonia, chronic obstructive pulmonary disease, and malignancy. Dr. Neri is following in pulmonary consultation. Continue bronchodilators, pulmonary toilet. Continue broad spectrum antibiotics. - Health care acquired pneumonia, status post treatment. Dr. Coleman is following in infectious disease consultation. - Severe sepsis with shock, resolved. - C-diff colitis. continue Vanco. - Hypernatremia,resolved. Dr. Zapata is following a nephrology consultation. - Chronic obstructive pulmonary disease. Continue bronchodilators. - Multiple decubitus ulcers with history of debridement. Continue wound care. - Chronic urinary retention. Continue George cath. - Left lung squamous cell carcinoma. - Anemia of chronic disease, transfuse as needed. - Congestive heart failure. Dr. Tipton is following the patient in cardiology consultation. - Coagulopathy. - Dysphagia, status post G-tube placement on 08/[address] Gonzales, GI. - Chronic pain. Continue Pepcid for peptic ulcer disease prophylaxis and sequential compression device for deep venous thrombosis prophylaxis. Further recommendations based on clinical course. Plan of care discussed with Dr. Dozier. Problems: Subjective 24 Hr Interval Summary Free Text/Dictation Patient's continues to be tachycardic, no fever, tolerates G-tube feeding well. Exam/Review of Systems Vital Signs Vitals Vital Signs Date Time Temp Pulse Resp B/P Pulse Ox O2 Delivery O2 Flow Rate FiO2 09/01/16 16:38 98.2 80 18 108/74 80 09/01/16 16:14 2.0 09/01/16 15:05 Nasal Cannula Intake and Output 08/31/16 08/31/16 09/01/16 15:00 23:00 07:00 Intake Total 1660 ml Output Total 700 ml Balance 960 ml Exam PHYSICAL ASSESSMENT: GENERAL: Fragile, cachectic, elderly female, currently on supplemental oxygen. HEENT: Head is atraumatic, normocephalic. PERRLA. NECK: Supple, no thyromegaly. CHEST: Patient has diminished breath sounds with diminished air entry bilaterally. CARDIOVASCULAR: Normal S1, S2. No murmurs, gallops, clicks, rubs noted. ABDOMEN: Flat, nondistended, nontender. Bowel sounds present. GT. EXTREMITIES: There is no edema, clubbing, cyanosis. Pulses equal bilaterally 2 +. SKIN: Patient has multiple pressure ulcers including sacral wound. NEUROLOGICAL: Alert and oriented to name and situation, follows immediate commands. Results Result Diagram: 09/01/1618 09/01/16 0618 Results 24 hrs Laboratory Tests Test 09/01/16 06:18 Anion Gap 12 Basophils # 0.1 Basophils % 0.7 Blood Urea Nitrogen 13 Calcium Level 7.8 L Carbon Dioxide Level 27 Chloride Level 101 Creatinine 0.39 L Eosinophils # 0.3 Eosinophils % 2.4 Glucose Level 99 Hematocrit 29.9 L Hemoglobin 9.4 L Lymphocytes # 2.7 Lymphocytes % 19.6 Mean Corpuscular Hemoglobin 26.6 L Mean Corpuscular Hemoglobin Concent 31.4 L Mean Corpuscular Volume 84.5 Mean Platelet Volume 9.5 Monocytes # 1.8 H Monocytes % 13.3 H Neutrophils # 8.6 H Neutrophils % 62.0 Nucleated Red Blood Cells # 0.0 Nucleated Red Blood Cells % 0.0 Platelet Count 575 H Potassium Level 3.9 Red Blood Count 3.54 L Red Cell Distribution Width 18.4 H Sodium Level 136 White Blood Count 13.8 H Medications Medications Current Medications Hydralazine HCl (Apresoline) 10 mg Q4H PRN IV SBP>170; Start 08/14/16 at 15:30 IV Flush (NS 10 ml) 10 ml PRN PRN IV IV PROTOCOL; Start 08/14/16 at 16:00 Collagenase (Santyl) 1 applic DAILY TOP Last administered on 09/01/16 08:29; Admin Dose 1 APPLIC; Start 08/15/16 at 09:00 Sodium Hypochlorite (Dakin'S (1/4 Strength)) 1 applic BID IRR Last administered on 09/01/16 08:29; Admin Dose 1 APPLIC; Start 08/15/16 at 13:30 Vancomycin HCl (Vancomycin Oral Syringe) 250 mg Q6 PO Last administered on 09/01 17:39; Admin Dose 250 MG; Start 08/16/16 at 18:00 Pantoprazole (Protonix Tab) 40 mg DAILY@06 PO Last administered on 09/01/16 06 :07; Admin Dose 40 MG; Start 08/25/16 at 06:00 Mupirocin (Bactroban) 1 applic BID TOP Last administered on 09/01/16 08:29; Admin Dose 1 APPLIC; Start 08/26/16 at 21:00 Morphine Sulfate (morphine) 2 mg Q3H PRN IV PAIN Last administered on 19:06; Admin Dose 2 MG; Start 08/29/16 at 21:23 Metoprolol Tartrate (Lopressor) 12.5 mg BID PO ; Start 09/01/16 at 21:00 Doxycycline Hyclate (Vibramycin) 100 mg DAILY PO Last administered on 15:55; Admin Dose 100 MG; Start 09/01/16 at 14:00 REBECCA ISLAS Sep 01, 2016 19:40
[2016-09-01] MEDS: METOPROLOL 25 MG TAB PO SCH (21:53)
[2016-09-02] VITALS (12 sets, daily range): BP systolic 90–124; BP diastolic 50–76; PULSE 90–116; RESP 16–19
[2016-09-02] MEDS: VANCOMYCIN HCL 250 MG/5ML POSYG PO SCH ×4 (00:44→17:38)
[2016-09-02] MEDS: ALBUTEROL/IPRATROPIUM (NEB) 3 ML AMP HHN SCH ×4 (00:47→23:54)
[2016-09-02] MEDS: morphine 2 MG INJ IV PRN ×5 (01:13→15:18)
[2016-09-02] MEDS: PANTOPRAZOLE (EC) 40 MG TAB PO SCH (05:29)
[2016-09-02] MEDS: LEVOTHYROXINE 125 MCG TAB PO SCH (06:16)
[2016-09-02] MEDS: COLLAGENASE 30 GM TUBE TOP SCH (08:43)
[2016-09-02] MEDS: DOXYCYCLINE 100 MG TAB PO SCH (08:44)
[2016-09-02] MEDS: METOPROLOL 25 MG TAB PO SCH ×3 (08:44→22:21)
[2016-09-02] MEDS: SODIUM HYPOCHLORITE 0.125% 473 ML BTL IRR SCH ×2 (08:47→20:51)
[2016-09-02] MEDS: MUPIROCIN 2% 22 GM OINT TOP SCH ×2 (08:48→20:52)
[2016-09-02 10:02] LABS: ADD SCAN DIFF NO
[2016-09-02 10:04] LABS: ABNORMAL IP MESSAGE 1; BASOPHIL # 0.1 10^3/ul (0.0-0.1); BASOPHILS % 0.7 % (0.0-2.0); EOSINOPHILS # 0.3 10^3/ul (0.0-0.5); EOSINOPHILS % 2.2 % (0.0-7.0); HEMATOCRIT 29.2 % (37.0-47.0); HEMOGLOBIN 9.2 g/dl (12.0-16.0); LYMPHOCYTES # 2.7 10^3/ul (0.8-2.9); LYMPHOCYTES % 19.8 % (15.0-51.0); MEAN CORPUSCULAR HEMOGLOBIN 26.4 pg (29.0-33.0); MEAN CORPUSCULAR HGB CONC 31.5 g/dl (32.0-37.0); MEAN CORPUSCULAR VOLUME 83.9 fl (82.0-101.0); MEAN PLATELET VOLUME 9.1 fl (7.4-10.4); MONOCYTE # 1.6 10^3/ul (0.3-0.9); MONOCYTES % 11.6 % (0.0-11.0); NEUTROPHIL # 8.8 10^3/ul (1.6-7.5); NEUTROPHILS % 64.4 % (39.0-77.0); PLATELET COUNT 492 10^3/UL (140-415); RED BLOOD COUNT 3.48 10^6/ul (4.20-5.40); WHITE BLOOD COUNT 13.7 10^3/ul (4.8-10.8)
[2016-09-02 10:23] LABS: CREATININE 0.38 mg/dl (0.44-1.00)
[2016-09-02 10:24] LABS: CALCIUM 7.9 mg/dl (8.4-10.2)
--- NOTE | 2016-09-02 12:21 | PN ---
Date/Time of Note Date/Time of Note DATE: 09/02/16 TIME: 12:20 Assessment/Plan VTE Prophylaxis VTE Prophylaxis Intervention: other Lines/Catheters IV Catheter Type (from Nrsg): PICC Line Central line still needed: Yes Urinary Cath still in place: Yes Reason Cath still needed: skin wounds contaminated by urine Assessment/Plan Chief Complaint/Hosp Course - S/P Acute hypoxic respiratory failure secondary to pneumonia, chronic obstructive pulmonary disease, and malignancy. Dr. Neri is following in pulmonary consultation. Continue bronchodilators, pulmonary toilet. Continue broad spectrum antibiotics. - Health care acquired pneumonia, status post treatment. Dr. Coleman is following in infectious disease consultation. - Severe sepsis with shock, resolved. - C-diff colitis. continue Vanco. - Hypernatremia,resolved. Dr. Zapata is following a nephrology consultation. - Chronic obstructive pulmonary disease. Continue bronchodilators. - Multiple decubitus ulcers with history of debridement. Continue wound care. - Chronic urinary retention. Continue George cath. - Left lung squamous cell carcinoma. - Anemia of chronic disease, transfuse as needed. - Congestive heart failure. Dr. Tipton is following the patient in cardiology consultation. - Coagulopathy. - Dysphagia, status post G-tube placement on 08/[address] Gonzales, GI. - Chronic pain. Problems: Subjective 24 Hr Interval Summary Free Text/Dictation Patient wants more pain medication Exam/Review of Systems Vital Signs Vitals Vital Signs Date Time Temp Pulse Resp B/P Pulse Ox O2 Delivery O2 Flow Rate FiO2 09/02/16 11:47 98.2 68 18 96/60 95 09/02/16 08:45 Nasal Cannula 2.0 Intake and Output 09/01/16 09/01/16 09/02/16 15:00 23:00 07:00 Intake Total 1285 ml Output Total 1000 ml Balance 285 ml Exam Constitutional: well developed Head: atraumatic, normocephalic Neck: supple Respiratory: diminished breath sounds Cardiovascular: regular rate and rhythm Gastrointestinal: non-tender, soft Extremities: normal pulses Results Result Diagram: 09/02/16 0930 09/02/16 0930 Results 24 hrs Laboratory Tests Test 09/02/16 09:30 Anion Gap 10 Basophils # 0.1 Basophils % 0.7 Blood Urea Nitrogen 14 Calcium Level 7.9 L Carbon Dioxide Level 28 Chloride Level 99 Creatinine 0.38 L Eosinophils # 0.3 Eosinophils % 2.2 Glucose Level 97 Hematocrit 29.2 L Hemoglobin 9.2 L Lymphocytes # 2.7 Lymphocytes % 19.8 Mean Corpuscular Hemoglobin 26.4 L Mean Corpuscular Hemoglobin Concent 31.5 L Mean Corpuscular Volume 83.9 Mean Platelet Volume 9.1 Monocytes # 1.6 H Monocytes % 11.6 H Neutrophils # 8.8 H Neutrophils % 64.4 Nucleated Red Blood Cells # 0.0 Nucleated Red Blood Cells % 0.0 Platelet Count 492 H Potassium Level 4.0 Red Blood Count 3.48 L Red Cell Distribution Width 18.0 H Sodium Level 133 L White Blood Count 13.7 H Medications Medications Current Medications Hydralazine HCl (Apresoline) 10 mg Q4H PRN IV SBP>170; Start 08/14/16 at 15:30 IV Flush (NS 10 ml) 10 ml PRN PRN IV IV PROTOCOL; Start 08/14/16 at 16:00 Collagenase (Santyl) 1 applic DAILY TOP Last administered on 09/02/16 08:43; Admin Dose 1 APPLIC; Start 08/15/16 at 09:00 Sodium Hypochlorite (Dakin'S (1/4 Strength)) 1 applic BID IRR Last administered on 09/02/16 08:47; Admin Dose 1 APPLIC; Start 08/15/16 at 13:30 Vancomycin HCl (Vancomycin Oral Syringe) 250 mg Q6 PO Last administered on 09/02 12:12; Admin Dose 250 MG; Start 08/16/16 at 18:00 Pantoprazole (Protonix Tab) 40 mg DAILY@06 PO Last administered on 09/02/16 05 :29; Admin Dose 40 MG; Start 08/25/16 at 06:00 Mupirocin (Bactroban) 1 applic BID TOP Last administered on 09/02/16 08:48; Admin Dose 1 APPLIC; Start 08/26/16 at 21:00 Morphine Sulfate (morphine) 2 mg Q3H PRN IV PAIN Last administered on 12:12; Admin Dose 2 MG; Start 08/29/16 at 21:23 Metoprolol Tartrate (Lopressor) 12.5 mg BID PO Last administered on 09/02/16 08:44; Admin Dose 12.5 MG; Start 09/01/16 at 21:00 Doxycycline Hyclate (Vibramycin) 100 mg DAILY PO Last administered on t 08:44; Admin Dose 100 MG; Start 09/01/16 at 14:00 MICHAEL HOROWITZ 18, 2017 12:21
--- NOTE | 2016-09-02 13:17 | CONS ---
Date/Time of Note Date/Time of Note DATE: 09/02/16 TIME: 13:17 Assessment/Plan Assessment/Plan Additional Assessment/Plan 1. Acute kidney injury on possible chronic kidney disease, likely secondary to cardiorenal syndrome in the setting of diastolic heart failure. 2. Acute hypernatremia 2. Status post extubation for acute hypoxemic respiratory failure. 3. Septic shock. 4. Pulmonary hypertension with a preserved ejection fraction on echocardiogram. 5. History of possible lung cancer. PLAN: electrolytes stable today Cr normal today will continue to follow up Consultation Date/Type/Reason Admit Date/Time Aug 14, 2016 at 10:56 Initial Consult Date 08/17/2016 Type of Consultation: NEPHROLOGY Referring Provider: DRE LOBATO MD 24 HR Interval Summary Free Text/Dictation Na 133, Bp stable, afebrile Exam/Review of Systems Vital Signs Vitals Vital Signs Date Time Temp Pulse Resp B/P Pulse Ox O2 Delivery O2 Flow Rate FiO2 09/02/16 12:20 103 09/02/16 11:47 98.2 18 96/60 95 09/02/16 08:45 Nasal Cannula 2.0 Intake and Output 09/01/16 09/01/16 09/02/16 15:00 23:00 07:00 Intake Total 1285 ml Output Total 1000 ml Balance 285 ml Results Result Diagram: 09/02/16 0930 09/02/16 0930 Results 24 hrs Laboratory Tests Test 09/02/16 09:30 Anion Gap 10 Basophils # 0.1 Basophils % 0.7 Blood Urea Nitrogen 14 Calcium Level 7.9 L Carbon Dioxide Level 28 Chloride Level 99 Creatinine 0.38 L Eosinophils # 0.3 Eosinophils % 2.2 Glucose Level 97 Hematocrit 29.2 L Hemoglobin 9.2 L Lymphocytes # 2.7 Lymphocytes % 19.8 Mean Corpuscular Hemoglobin 26.4 L Mean Corpuscular Hemoglobin Concent 31.5 L Mean Corpuscular Volume 83.9 Mean Platelet Volume 9.1 Monocytes # 1.6 H Monocytes % 11.6 H Neutrophils # 8.8 H Neutrophils % 64.4 Nucleated Red Blood Cells # 0.0 Nucleated Red Blood Cells % 0.0 Platelet Count 492 H Potassium Level 4.0 Red Blood Count 3.48 L Red Cell Distribution Width 18.0 H Sodium Level 133 L White Blood Count 13.7 H Medications Medications Current Medications Hydralazine HCl (Apresoline) 10 mg Q4H PRN IV SBP>170; Start 08/14/16 at 15:30 IV Flush (NS 10 ml) 10 ml PRN PRN IV IV PROTOCOL; Start 08/14/16 at 16:00 Collagenase (Santyl) 1 applic DAILY TOP Last administered on 09/02/16 08:43; Admin Dose 1 APPLIC; Start 08/15/16 at 09:00 Sodium Hypochlorite (Dakin'S (1/4 Strength)) 1 applic BID IRR Last administered on 09/02/16 08:47; Admin Dose 1 APPLIC; Start 08/15/16 at 13:30 Vancomycin HCl (Vancomycin Oral Syringe) 250 mg Q6 PO Last administered on 09/02 12:12; Admin Dose 250 MG; Start 08/16/16 at 18:00 Pantoprazole (Protonix Tab) 40 mg DAILY@06 PO Last administered on 09/02/16 05 :29; Admin Dose 40 MG; Start 08/25/16 at 06:00 Mupirocin (Bactroban) 1 applic BID TOP Last administered on 09/02/16 08:48; Admin Dose 1 APPLIC; Start 08/26/16 at 21:00 Morphine Sulfate (morphine) 2 mg Q3H PRN IV PAIN Last administered on 12:12; Admin Dose 2 MG; Start 08/29/16 at 21:23 Metoprolol Tartrate (Lopressor) 12.5 mg BID PO Last administered on 09/02/16 08:44; Admin Dose 12.5 MG; Start 09/01/16 at 21:00 Doxycycline Hyclate (Vibramycin) 100 mg DAILY PO Last administered on 08:44; Admin Dose 100 MG; Start 09/01/16 at 14:00 DIONNE SAUCEDA MD Sep 02, 2016 13:17
[2016-09-02] MEDS: ALBUTEROL/IPRATROPIUM (NEB) 3 ML AMP HHN PRN (17:24)
[2016-09-02] MEDS ORDERED: KETOROLAC 60 MG INJ IV STA ×2 (22:16→22:26)
[2016-09-02] MEDS ORDERED: KETOROLAC 30 MG INJ IV SCH (22:45)
[2016-09-03] VITALS (12 sets, daily range): BP systolic 80–93; BP diastolic 52–62; PULSE 104–120; RESP 17–20
[2016-09-03] MEDS: VANCOMYCIN HCL 250 MG/5ML POSYG PO SCH ×4 (00:56→18:47)
[2016-09-03] MEDS: LEVOTHYROXINE 125 MCG TAB PO SCH (06:10)
[2016-09-03] MEDS: PANTOPRAZOLE (EC) 40 MG TAB PO SCH (06:10)
[2016-09-03] MEDS: METOPROLOL 25 MG TAB PO SCH ×2 (08:34→21:00)
[2016-09-03] MEDS: SODIUM HYPOCHLORITE 0.125% 473 ML BTL IRR SCH ×2 (08:36→21:21)
[2016-09-03] MEDS: SOD CHLORIDE 0.9% 1,000 ML IV SCH ×3 (08:36→21:23)
[2016-09-03] MEDS: DOXYCYCLINE 100 MG TAB PO SCH (08:36)
[2016-09-03] MEDS: MUPIROCIN 2% 22 GM OINT TOP SCH ×2 (08:38→21:21)
[2016-09-03] MEDS: COLLAGENASE 30 GM TUBE TOP SCH (08:38)
[2016-09-03] MEDS: ALBUTEROL/IPRATROPIUM (NEB) 3 ML AMP HHN SCH ×2 (08:57→16:02)
[2016-09-03] MEDS: ALTEPLASE (CATHFLO) 2 MG INJ CATHETER PRN (09:58)
--- NOTE | 2016-09-03 12:13 | PN ---
Date/Time of Note Date/Time of Note DATE: 09/03/16 TIME: 12:12 Assessment/Plan VTE Prophylaxis VTE Prophylaxis Intervention: other Lines/Catheters IV Catheter Type (from Nrs): PICC Line Central line still needed: Yes Urinary Cath still in place: Yes Reason Cath still needed: skin wounds contaminated by urine Assessment/Plan Chief Complaint/Hosp Course - S/P Acute hypoxic respiratory failure secondary to pneumonia, chronic obstructive pulmonary disease, and malignancy. Dr. Neri is following in pulmonary consultation. Continue bronchodilators, pulmonary toilet. Continue broad spectrum antibiotics. - Health care acquired pneumonia, status post treatment. Dr. Coleman is following in infectious disease consultation. - Severe sepsis with shock, resolved. - C-diff colitis. continue Vanco. - Hypernatremia,resolved. Dr. Zapata is following a nephrology consultation. - Chronic obstructive pulmonary disease. Continue bronchodilators. - Multiple decubitus ulcers with history of debridement. Continue wound care. - Chronic urinary retention. Continue George cath. - Left lung squamous cell carcinoma. - Anemia of chronic disease, transfuse as needed. - Congestive heart failure. Dr. Tipton is following the patient in cardiology consultation. - Coagulopathy. - Dysphagia, status post G-tube placement on 08/[address] Gonzales, GI. - Chronic pain. Problems: Subjective 24 Hr Interval Summary Free Text/Dictation Patient complains of pain but she has been hypotensive as well Exam/Review of Systems Vital Signs Vitals Vital Signs Date Time Temp Pulse Resp B/P Pulse Ox O2 Delivery O2 Flow Rate FiO2 09/03/16 12:01 120 09/03/16 11:57 97.3 18 80/52 98 09/03/16 08:58 Nasal Cannula 2.0 Intake and Output 09/02/16 09/02/16 09/03/16 15:00 23:00 07:00 Intake Total 1100 ml 991 ml Output Total 1100 ml 700 ml Balance 0 ml 291 ml Exam Constitutional: frail Head: atraumatic, normocephalic Neck: supple Respiratory: diminished breath sounds Cardiovascular: regular rate and rhythm Gastrointestinal: non-tender, soft Extremities: normal pulses Results Result Diagram: 09/02/16 0930 09/02/16 0930 Medications Medications Current Medications Hydralazine HCl (Apresoline) 10 mg Q4H PRN IV SBP>170; Start 08/14/16 at 15:30 IV Flush (NS 10 ml) 10 ml PRN PRN IV IV PROTOCOL; Start 08/14/16 at 16:00 Collagenase (Santyl) 1 applic DAILY TOP Last administered on 09/03/16 08:38; Admin Dose 1 APPLIC; Start 08/15/16 at 09:00 Sodium Hypochlorite (Dakin'S (1/4 Strength)) 1 applic BID IRR Last administered on 09/03/16 08:36; Admin Dose 1 APPLIC; Start 08/15/16 at 13:30 Vancomycin HCl (Vancomycin Oral Syringe) 250 mg Q6 PO Last administered on 09/03 11:56; Admin Dose 250 MG; Start 08/16/16 at 18:00 Pantoprazole (Protonix Tab) 40 mg DAILY@06 PO Last administered on 09/03/16 06 :10; Admin Dose 40 MG; Start 08/25/16 at 06:00 Mupirocin (Bactroban) 1 applic BID TOP Last administered on 09/03/16 08:38; Admin Dose 1 APPLIC; Start 08/26/16 at 21:00 Morphine Sulfate (morphine) 2 mg Q3H PRN IV PAIN Last administered on 15:18; Admin Dose 2 MG; Start 08/29/16 at 21:23 Metoprolol Tartrate (Lopressor) 12.5 mg BID PO Last administered on 09/02/16 22:21; Admin Dose 12.5 MG; Start 09/01/16 at 21:00 Doxycycline Hyclate (Vibramycin) 100 mg DAILY PO Last administered on 08:36; Admin Dose 100 MG; Start 09/01/16 at 14:00 Ketorolac Tromethamine 60 mg 60 mg ONCE IV ; Start 09/02/16 at 22:45; Stop 09/03 at 22:44; Status UNV Sodium Chloride (NS) 1,000 ml @ 100 mls/hr Q10H IV Last administered on 08:36; Admin Dose 100 MLS/HR; Start 09/03/16 at 08:30 MICHAEL HOROWITZ 19, 2017 12:13
--- NOTE | 2016-09-03 15:21 | CONS ---
Date/Time of Note Date/Time of Note DATE: 09/03/16 TIME: 15:20 Assessment/Plan Assessment/Plan Chief Complaint/Hosp Course SUBJECTIVE: No events overnight. looks comfortable, no fevers INDWELLINGS: 1. PEG. 2. PICC line 08/14/2016. 3. George catheter. ANTIMICROBIALS: Oral vancomycin. PHYSICAL EXAMINATION: GENERAL: A fragile, cachectic elderly woman, who is in no distress. HEENT: Head atraumatic, normocephalic. Sclerae anicteric. Buccal mucosa dry. NECK: Supple. Trachea midline. CHEST: Chest rise is symmetrical. Breath sounds diminished to the bases. HEART: S1, S2. ABDOMEN: Soft. Bowel sounds present. EXTREMITIES: Without edema. SKIN: With multiple unstageable decubiti. ASSESSMENT: 1. Status post septic shock. 2. Clostridium difficile colitis. 3. Positive urinalysis on admission, with urine culture being negative. 4. Lung cancer 5. ALLERGY TO PENICILLIN. 6. Multiple chronic wounds. 7. Cachexia. 8. Anemia. 9. MRSA + nares PLAN: Remains stable, continue Doxycycline daily and Hibiclens baths daily, continue PO Vanco for 4 more days, continue aspiration precautions and local wound care DW staff Problems: Consultation Date/Type/Reason Admit Date/Time Aug 14, 2016 at 10:56 Initial Consult Date 08/14/16 Type of Consultation: id Referring Provider: DRE LOBATO MD Exam/Review of Systems Vital Signs Vitals Vital Signs Date Time Temp Pulse Resp B/P Pulse Ox O2 Delivery O2 Flow Rate FiO2 09/03/16 12:01 120 09/03/16 11:57 97.3 18 80/52 98 09/03/16 08:58 Nasal Cannula 2.0 Intake and Output 09/02/16 09/02/16 09/03/16 15:00 23:00 07:00 Intake Total 1100 ml 991 ml Output Total 1100 ml 700 ml Balance 0 ml 291 ml Results Result Diagram: 09/02/16 0930 09/02/16 0930 Medications Medications Current Medications Hydralazine HCl (Apresoline) 10 mg Q4H PRN IV SBP>170; Start 08/14/16 at 15:30 IV Flush (NS 10 ml) 10 ml PRN PRN IV IV PROTOCOL; Start 08/14/16 at 16:00 Collagenase (Santyl) 1 applic DAILY TOP Last administered on 09/03/16 08:38; Admin Dose 1 APPLIC; Start 08/15/16 at 09:00 Sodium Hypochlorite (Dakin'S (1/4 Strength)) 1 applic BID IRR Last administered on 09/03/16 08:36; Admin Dose 1 APPLIC; Start 08/15/16 at 13:30 Vancomycin HCl (Vancomycin Oral Syringe) 250 mg Q6 PO Last administered on 09/03 11:56; Admin Dose 250 MG; Start 08/16/16 at 18:00 Pantoprazole (Protonix Tab) 40 mg DAILY@06 PO Last administered on 09/03/16 06 :10; Admin Dose 40 MG; Start 08/25/16 at 06:00 Mupirocin (Bactroban) 1 applic BID TOP Last administered on 09/03/16 08:38; Admin Dose 1 APPLIC; Start 08/26/16 at 21:00 Morphine Sulfate (morphine) 2 mg Q3H PRN IV PAIN Last administered on 15:18; Admin Dose 2 MG; Start 08/29/16 at 21:23 Metoprolol Tartrate (Lopressor) 12.5 mg BID PO Last administered on 09/02/16 22:21; Admin Dose 12.5 MG; Start 09/01/16 at 21:00 Doxycycline Hyclate 100 mg 100 mg DAILY PO Last administered on 09/03/16 08:36 ; Admin Dose 100 MG; Start 09/01/16 at 14:00 Sodium Chloride (NS) 1,000 ml @ 100 mls/hr Q10H IV Last administered on 08:36; Admin Dose 100 MLS/HR; Start 09/03/16 at 08:30 RUBIN MAYEN NP Sep 03, 2016 15:21
--- NOTE | 2016-09-03 21:10 | CONS ---
Date/Time of Note Date/Time of Note DATE: 09/03/16 TIME: 21:09 Assessment/Plan Assessment/Plan Additional Assessment/Plan 1. Acute kidney injury on possible chronic kidney disease, likely secondary to cardiorenal syndrome in the setting of diastolic heart failure. 2. Acute hypernatremia 2. Status post extubation for acute hypoxemic respiratory failure. 3. Septic shock. 4. Pulmonary hypertension with a preserved ejection fraction on echocardiogram. 5. History of possible lung cancer. PLAN: Na 133, continue current care Cr normal today will continue to follow up Consultation Date/Type/Reason Admit Date/Time Aug 14, 2016 at 10:56 Initial Consult Date 08/17/2016 Type of Consultation: NEPHROLOGY Referring Provider: DRE LOBATO MD 24 HR Interval Summary Free Text/Dictation Na 133, Cr normal, no acute events Exam/Review of Systems Vital Signs Vitals Vital Signs Date Time Temp Pulse Resp B/P Pulse Ox O2 Delivery O2 Flow Rate FiO2 09/03/16 20:15 119 09/03/16 16:10 97.6 20 86/58 97 09/03/16 16:03 2.0 09/03/16 16:02 Nasal Cannula Intake and Output 09/02/16 09/02/16 09/03/16 15:00 23:00 07:00 Intake Total 1100 ml 991 ml Output Total 1100 ml 700 ml Balance 0 ml 291 ml Results Result Diagram: 09/02/16 0930 09/02/16 0930 Medications Medications Current Medications Hydralazine HCl (Apresoline) 10 mg Q4H PRN IV SBP>170; Start 08/14/16 at 15:30 IV Flush (NS 10 ml) 10 ml PRN PRN IV IV PROTOCOL; Start 08/14/16 at 16:00 Collagenase (Santyl) 1 applic DAILY TOP Last administered on 09/03/16 08:38; Admin Dose 1 APPLIC; Start 08/15/16 at 09:00 Sodium Hypochlorite (Dakin'S (1/4 Strength)) 1 applic BID IRR Last administered on 09/03/16 08:36; Admin Dose 1 APPLIC; Start 08/15/16 at 13:30 Vancomycin HCl (Vancomycin Oral Syringe) 250 mg Q6 PO Last administered on 09/03 18:47; Admin Dose 250 MG; Start 08/16/16 at 18:00 Pantoprazole (Protonix Tab) 40 mg DAILY@06 PO Last administered on 09/03/16 06 :10; Admin Dose 40 MG; Start 08/25/16 at 06:00 Mupirocin (Bactroban) 1 applic BID TOP Last administered on 09/03/16 08:38; Admin Dose 1 APPLIC; Start 08/26/16 at 21:00 Morphine Sulfate (morphine) 2 mg Q3H PRN IV PAIN Last administered on 15:18; Admin Dose 2 MG; Start 08/29/16 at 21:23 Metoprolol Tartrate (Lopressor) 12.5 mg BID PO Last administered on 09/02/16 22:21; Admin Dose 12.5 MG; Start 09/01/16 at 21:00 Doxycycline Hyclate 100 mg 100 mg DAILY PO Last administered on 09/03/16 08:36 ; Admin Dose 100 MG; Start 09/01/16 at 14:00 Sodium Chloride (NS) 1,000 ml @ 100 mls/hr Q10H IV Last administered on 08:36; Admin Dose 100 MLS/HR; Start 09/03/16 at 08:30 DIONNE SAUCEDA MD Sep 03, 2016 21:10
[2016-09-03] MEDS: morphine 2 MG INJ IV PRN (21:22)
[2016-09-03] MEDS: ALBUTEROL/IPRATROPIUM (NEB) 3 ML AMP HHN PRN (21:38)
[2016-09-04] VITALS (10 sets, daily range): BP systolic 91–101; BP diastolic 58–67; PULSE 100–118; RESP 16–20
[2016-09-04] MEDS: VANCOMYCIN HCL 250 MG/5ML POSYG PO SCH ×4 (00:02→17:34)
[2016-09-04] MEDS: ALBUTEROL/IPRATROPIUM (NEB) 3 ML AMP HHN SCH ×3 (00:52→16:00)
[2016-09-04] MEDS: SOD CHLORIDE 0.9% 1,000 ML IV SCH ×3 (04:30→14:30)
[2016-09-04] MEDS: LEVOTHYROXINE 125 MCG TAB PO SCH (06:09)
[2016-09-04] MEDS: PANTOPRAZOLE (EC) 40 MG TAB PO SCH (06:09)
[2016-09-04 07:37] LABS: ADD SCAN DIFF NO
[2016-09-04 07:46] LABS: ABNORMAL IP MESSAGE 1; BASOPHIL # 0.1 10^3/ul (0.0-0.1); BASOPHILS % 0.9 % (0.0-2.0); EOSINOPHILS # 0.4 10^3/ul (0.0-0.5); EOSINOPHILS % 2.5 % (0.0-7.0); HEMATOCRIT 28.7 % (37.0-47.0); HEMOGLOBIN 8.7 g/dl (12.0-16.0); LYMPHOCYTES % 14.1 % (15.0-51.0); MEAN CORPUSCULAR HGB CONC 30.3 g/dl (32.0-37.0); MEAN CORPUSCULAR VOLUME 85.7 fl (82.0-101.0); MEAN PLATELET VOLUME 8.8 fl (7.4-10.4); MONOCYTE # 1.6 10^3/ul (0.3-0.9); MONOCYTES % 11.2 % (0.0-11.0); NEUTROPHIL # 9.9 10^3/ul (1.6-7.5); NEUTROPHILS % 69.1 % (39.0-77.0); PLATELET COUNT 422 10^3/UL (140-415); RED BLOOD COUNT 3.35 10^6/ul (4.20-5.40); RED CELL DISTRIBUTION WIDTH 17.6 % (11.5-14.5); WHITE BLOOD COUNT 14.4 10^3/ul (4.8-10.8)
[2016-09-04 08:00] LABS: POTASSIUM 3.5 mmol/L (3.5-5.1)
[2016-09-04 08:02] LABS: CREATININE 0.34 mg/dl (0.44-1.00)
[2016-09-04 08:03] LABS: CALCIUM 7.6 mg/dl (8.4-10.2)
[2016-09-04] MEDS: METOPROLOL 25 MG TAB PO SCH ×2 (08:43→19:58)
[2016-09-04] MEDS: SODIUM HYPOCHLORITE 0.125% 473 ML BTL IRR SCH ×3 (08:50→20:02)
[2016-09-04] MEDS: COLLAGENASE 30 GM TUBE TOP SCH ×2 (08:50→13:22)
[2016-09-04] MEDS: DOXYCYCLINE 100 MG TAB PO SCH (08:54)
[2016-09-04] MEDS: morphine 2 MG INJ IV PRN ×4 (08:54→19:58)
[2016-09-04] MEDS: MUPIROCIN 2% 22 GM OINT TOP SCH ×2 (09:00→19:57)
--- NOTE | 2016-09-04 11:39 | CONS ---
Date/Time of Note Date/Time of Note DATE: 09/04/16 TIME: 11:37 Assessment/Plan Assessment/Plan Additional Assessment/Plan 1. Acute kidney injury on possible chronic kidney disease, likely secondary to cardiorenal syndrome in the setting of diastolic heart failure. 2. Acute hypernatremia 2. Status post extubation for acute hypoxemic respiratory failure. 3. Septic shock. Cl.difficle colitis 4. Pulmonary hypertension with a preserved ejection fraction on echocardiogram. 5. History of possible lung cancer. PLAN: Na 137 today,improved , continue current care Cr normal today will continue to follow up Consultation Date/Type/Reason Admit Date/Time Aug 14, 2016 at 10:56 Initial Consult Date 08/17/2016 Type of Consultation: NEPHROLOGY Referring Provider: DRE LOBATO MD 24 HR Interval Summary Free Text/Dictation pt stable, no acute events Exam/Review of Systems Vital Signs Vitals Vital Signs Date Time Temp Pulse Resp B/P Pulse Ox O2 Delivery O2 Flow Rate FiO2 09/04/16 08:48 98 2.0 09/04/16 08:48 92 20 Nasal Cannula 09/04/16 07:53 98.4 100/59 Intake and Output 09/03/16 09/03/16 09/04/16 15:00 23:00 07:00 Intake Total 2050 ml 1885 ml Output Total 700 ml 600 ml Balance 1350 ml 1285 ml Exam GENERAL: A fragile, cachectic elderly woman, who is in no distress. HEENT: Head atraumatic, normocephalic. Sclerae anicteric. Buccal mucosa dry. NECK: Supple. Trachea midline. CHEST: Chest rise is symmetrical. Breath sounds diminished to the bases. HEART: S1, S2. ABDOMEN: Soft. Bowel sounds present. EXTREMITIES: Without edema. SKIN: With multiple unstageable decubiti Results Result Diagram: 09/04/16 0725 09/04/16 0725 Results 24 hrs Laboratory Tests Test 09/04/16 07:25 Anion Gap 11 Basophils # 0.1 Basophils % 0.9 Blood Urea Nitrogen 11 Calcium Level 7.6 L Carbon Dioxide Level 26 Chloride Level 104 Creatinine 0.34 L Eosinophils # 0.4 Eosinophils % 2.5 Glucose Level 101 Hematocrit 28.7 L Hemoglobin 8.7 L Lymphocytes # 2.0 Lymphocytes % 14.1 L Mean Corpuscular Hemoglobin 26.0 L Mean Corpuscular Hemoglobin Concent 30.3 L Mean Corpuscular Volume 85.7 Mean Platelet Volume 8.8 Monocytes # 1.6 H Monocytes % 11.2 H Neutrophils # 9.9 H Neutrophils % 69.1 Nucleated Red Blood Cells # 0.0 Nucleated Red Blood Cells % 0.0 Platelet Count 422 H Potassium Level 3.5 Red Blood Count 3.35 L Red Cell Distribution Width 17.6 H Sodium Level 137 White Blood Count 14.4 H Medications Medications Current Medications Hydralazine HCl (Apresoline) 10 mg Q4H PRN IV SBP>170; Start 08/14/16 at 15:30 IV Flush (NS 10 ml) 10 ml PRN PRN IV IV PROTOCOL; Start 08/14/16 at 16:00 Collagenase (Santyl) 1 applic DAILY TOP Last administered on 09/03/16 08:38; Admin Dose 1 APPLIC; Start 08/15/16 at 09:00 Sodium Hypochlorite (Dakin'S (1/4 Strength)) 1 applic BID IRR Last administered on 09/03/16 21:21; Admin Dose 1 APPLIC; Start 08/15/16 at 13:30 Vancomycin HCl (Vancomycin Oral Syringe) 250 mg Q6 PO Last administered on 09/04 06:09; Admin Dose 250 MG; Start 08/16/16 at 18:00 Pantoprazole (Protonix Tab) 40 mg DAILY@06 PO Last administered on 09/04/16 06 :09; Admin Dose 40 MG; Start 08/25/16 at 06:00 Mupirocin (Bactroban) 1 applic BID TOP Last administered on 09/03/16 21:21; Admin Dose 1 APPLIC; Start 08/26/16 at 21:00 Morphine Sulfate (morphine) 2 mg Q3H PRN IV PAIN Last administered on 08:54; Admin Dose 2 MG; Start 08/29/16 at 21:23 Metoprolol Tartrate (Lopressor) 12.5 mg BID PO Last administered on 09/02/16 22:21; Admin Dose 12.5 MG; Start 09/01/16 at 21:00 Doxycycline Hyclate 100 mg 100 mg DAILY PO Last administered on 09/04/16 08:54 ; Admin Dose 100 MG; Start 09/01/16 at 14:00 Sodium Chloride (NS) 1,000 ml @ 100 mls/hr Q10H IV Last administered on t 09:08; Admin Dose 100 MLS/HR; Start 09/03/16 at 08:30 DIONNE SAUCEDA MD Sep 04, 2016 11:39
--- NOTE | 2016-09-04 13:31 | CONS ---
Date/Time of Note Date/Time of Note DATE: 09/04/16 TIME: 13:30 Assessment/Plan Assessment/Plan Chief Complaint/Hosp Course SUBJECTIVE: No events overnight. looks comfortable, no fevers INDWELLINGS: 1. PEG. 2. PICC line 08/14/2016. 3. George catheter. ANTIMICROBIALS: Oral vancomycin. PHYSICAL EXAMINATION: GENERAL: A fragile, cachectic elderly woman, who is in no distress. HEENT: Head atraumatic, normocephalic. Sclerae anicteric. Buccal mucosa dry. NECK: Supple. Trachea midline. CHEST: Chest rise is symmetrical. Breath sounds diminished to the bases. HEART: S1, S2. ABDOMEN: Soft. Bowel sounds present. EXTREMITIES: Without edema. SKIN: With multiple unstageable decubiti. ASSESSMENT: 1. Status post septic shock. 2. Clostridium difficile colitis. 3. Positive urinalysis on admission, with urine culture being negative. 4. Lung cancer 5. ALLERGY TO PENICILLIN. 6. Multiple chronic wounds. 7. Cachexia. 8. Anemia. 9. MRSA + nares PLAN: Remains stable, continue Doxycycline daily and Hibiclens baths daily, continue PO Vanco, aspiration precautions and local wound care, pending dc plan DW staff Problems: Consultation Date/Type/Reason Admit Date/Time Aug 14, 2016 at 10:56 Initial Consult Date 08/14/16 Type of Consultation: id Referring Provider: DRE LOBATO MD Exam/Review of Systems Vital Signs Vitals Vital Signs Date Time Temp Pulse Resp B/P Pulse Ox O2 Delivery O2 Flow Rate FiO2 09/04/16 12:16 118 09/04/16 11:59 98.0 20 98/60 98 09/04/16 08:48 2.0 09/04/16 08:48 Nasal Cannula Intake and Output 09/03/16 09/03/16 09/04/16 15:00 23:00 07:00 Intake Total 2050 ml 1885 ml Output Total 700 ml 600 ml Balance 1350 ml 1285 ml Results Result Diagram: 09/04/16 0725 09/04/16 0725 Results 24 hrs Laboratory Tests Test 09/04/16 07:25 Anion Gap 11 Basophils # 0.1 Basophils % 0.9 Blood Urea Nitrogen 11 Calcium Level 7.6 L Carbon Dioxide Level 26 Chloride Level 104 Creatinine 0.34 L Eosinophils # 0.4 Eosinophils % 2.5 Glucose Level 101 Hematocrit 28.7 L Hemoglobin 8.7 L Lymphocytes # 2.0 Lymphocytes % 14.1 L Mean Corpuscular Hemoglobin 26.0 L Mean Corpuscular Hemoglobin Concent 30.3 L Mean Corpuscular Volume 85.7 Mean Platelet Volume 8.8 Monocytes # 1.6 H Monocytes % 11.2 H Neutrophils # 9.9 H Neutrophils % 69.1 Nucleated Red Blood Cells # 0.0 Nucleated Red Blood Cells % 0.0 Platelet Count 422 H Potassium Level 3.5 Red Blood Count 3.35 L Red Cell Distribution Width 17.6 H Sodium Level 137 White Blood Count 14.4 H Medications Medications Current Medications Hydralazine HCl (Apresoline) 10 mg Q4H PRN IV SBP>170; Start 08/14/16 at 15:30 IV Flush (NS 10 ml) 10 ml PRN PRN IV IV PROTOCOL; Start 08/14/16 at 16:00 Collagenase (Santyl) 1 applic DAILY TOP Last administered on 09/04/16 13:22; Admin Dose 1 APPLIC; Start 08/15/16 at 09:00 Sodium Hypochlorite (Dakin'S (1/4 Strength)) 1 applic BID IRR Last administered on 09/04/16 13:22; Admin Dose 1 APPLIC; Start 08/15/16 at 13:30 Vancomycin HCl (Vancomycin Oral Syringe) 250 mg Q6 PO Last administered on 09/04 12:13; Admin Dose 250 MG; Start 08/16/16 at 18:00 Pantoprazole (Protonix Tab) 40 mg DAILY@06 PO Last administered on 09/04/16 06 :09; Admin Dose 40 MG; Start 08/25/16 at 06:00 Mupirocin (Bactroban) 1 applic BID TOP Last administered on 09/03/16 21:21; Admin Dose 1 APPLIC; Start 08/26/16 at 21:00 Morphine Sulfate (morphine) 2 mg Q3H PRN IV PAIN Last administered on 13:20; Admin Dose 2 MG; Start 08/29/16 at 21:23 Metoprolol Tartrate (Lopressor) 12.5 mg BID PO Last administered on 09/02/16 22:21; Admin Dose 12.5 MG; Start 09/01/16 at 21:00 Doxycycline Hyclate 100 mg 100 mg DAILY PO Last administered on 09/04/16 08:54 ; Admin Dose 100 MG; Start 09/01/16 at 14:00 Sodium Chloride (NS) 1,000 ml @ 100 mls/hr Q10H IV Last administered on 09:08; Admin Dose 100 MLS/HR; Start 09/03/16 at 08:30 RUBIN MAYEN NP Sep 04, 2016 13:31
--- NOTE | 2016-09-05 08:42 | DS ---
DATE OF ADMISSION: 08/14/2016 DATE OF DISCHARGE: 09/04/2016 FINAL DIAGNOSES: 1. Status post-acute hypoxic respiratory failure secondary to pneumonia, chronic obstructive pulmon dixie disease and malignancy. 2. Healthcare-acquired pneumonia, status post treatment. 3. Severe sepsis with shock, resolved. 4. Clostridium difficile colitis. 5. Chronic obstructive pulmonary disease. 6. Multiple decubitus ulcers with history of debridement. 7. Chronic urinary retention. 8. Left lung squamous cell carcinoma. 9. Anemia of chronic disease. 10. Congestive heart failure. 11. Coagulopathy. 12. Dysphagia, status post G-tube placement. 13. Chronic pain. 14. Hypernatremia, resolved. 15. Methicillin-resistant Staphylococcus aureus of the nares. BRIEF HISTORY: The patient is a 65-year-old female with left lung squamous cell carcinoma with meta stasis not resectable per prior evaluation. The patient also is not a candidate for chemotherapy du e to multiple comorbidities and patient is a mcc smoker with history of chronic obstructive pu lmonary disease and chronic diastolic congestive failure, hypertension and chronic urinary retention requiring George catheter, multiple pressure ulcers, status post debridement, history of depression, hypothyroidism, anemia of chronic disease, chronic pain syndrome and current tobacco dependence. P teient was recuperating in senior living facility. The patient developed shortness of breath and was brought to [facility] Emergency Room. The patient developed severe hypoxia re quiring intubation and ventilatory support. The patient also had severe sepsis with white blood ifrah ls elevated to 56,700 and elevated lactic acid. The patient was admitted for further evaluation and management to intensive care unit. HOSPITAL COURSE: The patient was evaluated and followed by Dr. [facility] The patient was eventually weaned off ventilator support and was comfortable on supplemental oxygen. The patient was also evaluated and followed by Dr. Coleman in infectious disease consultati on and received both antibiotics for healthcare-acquired pneumonia and sepsis. The patient also req uired pressors. The patient had diarrhea and Clostridium difficile colitis and also was placed on c ontact isolation and received treatment. Patient had persistent hypernatremia and was followed by Dank Zapata in Nephrology consultation and renal function was closely monitored. Patient was also give n bronchodilators for chronic obstructive pulmonary disease and patient also continued on wound care and was evaluated by the claim processing specialist. The patient was evaluated and followed by Dr. Mala shetty for congestive heart failure. The patient's condition improved; however, patient still unable to swallow, passed swallow eval with recommendation for long-term enteral nutrition. The patient was fed through NG tube and patient underwent G-tube placement, started on feeding and was tolerating it well. The patient was also closely monitored on telemetry floor due to persistent tachycardia. Ov erall, the patient's condition improved. The patient tolerates G-tube feeding well with stable elec trolytes. The patient will be discharged to [facility] for further management. CONDITION ON DISCHARGE: Hemodynamically stable. ACTIVITY: As patient tolerates. DISCHARGE DIET: Continue current G-tube feeding. DISCHARGE MEDICATIONS: 1. DuoNeb q.8 hours and q.6 hours p.r.n. for shortness of breath. 2. Fentanyl ointment topical daily. 3. Doxycycline 100 mg p.o. for 5 more days. 4. Synthroid 125 p.o. before breakfast. 5. Metoprolol 12.5 mg p.o. b.i.d. 6. MS Contin 60 mg p.o. 3 times a day. 7. Protonix 40 mg daily. 8. Dakin solution irrigation twice a day. 9. Vancomycin via G-tube 250 mg p.o. q 6 hours for 5 more days. 10. Ascorbic acid. 11. Atorvastatin. 12. Plavix. 13. Floranex. 14. Ambien. Interdisciplinary plan of care was established for this patient. Plan of care was discussed with Dr Love Lobato. Dictated By: REBECCA ISLAS CARE COORDINATOR for DRE LOBATO MD, SR/NTS Conf#: [id number] DID#: [id number]
== END 2016-09-04 21:00 | DRG 871 ==
LOC: E/R 10:32 → TEL 10:56 → ICU 23:25 → MS4 08-18 15:07
PROVIDERS: ADMIT Internal Medicine; ATTEND Internal Medicine
PROC: 02HV33Z Insertion of Infusion Device into Superior Vena Cava, Percutaneous Approach (ICD-10-PCS; principal; 2016-08-14)
PROC: 5A09357 Assistance with Respiratory Ventilation, Less than 24 Consecutive Hours, Continuous Positive Airway Pressure (ICD-10-PCS; 2016-08-15)
PROC: 30233N1 Transfusion of Nonautologous Red Blood Cells into Peripheral Vein, Percutaneous Approach (ICD-10-PCS; 2016-08-18)
PROC: 30233K1 Transfusion of Nonautologous Frozen Plasma into Peripheral Vein, Percutaneous Approach (ICD-10-PCS; 2016-08-23)
PROC: 0DH63UZ Insertion of Feeding Device into Stomach, Percutaneous Approach (ICD-10-PCS; 2016-08-23)
DX: A41.9 Sepsis, unspecified organism (principal); J96.21 Acute and chronic respiratory failure with hypoxia; R65.21 Severe sepsis with septic shock; J69.0 Pneumonitis due to inhalation of food and vomit; L89.014 Pressure ulcer of right elbow, stage 4; N17.9 Acute kidney failure, unspecified; G93.40 Encephalopathy, unspecified; L89.154 Pressure ulcer of sacral region, stage 4; L89.213 Pressure ulcer of right hip, stage 3; C34.92 Malignant neoplasm of unspecified part of left bronchus or lung; R64 Cachexia; E87.0 Hyperosmolality and hypernatremia; A04.7 Enterocolitis due to Clostridium difficile; I13.0 Hypertensive heart and chronic kidney disease with heart failure and stage 1 through stage 4 chronic kidney disease, or unspecified chronic kidney disease; I50.30 Unspecified diastolic (congestive) heart failure; D68.9 Coagulation defect, unspecified; J44.9 Chronic obstructive pulmonary disease, unspecified; R33.9 Retention of urine, unspecified; Z68.25 Body mass index [BMI] 25.0-25.9, adult; E87.6 Hypokalemia; Z88.0 Allergy status to penicillin; R13.10 Dysphagia, unspecified; Z22.322 Carrier or suspected carrier of Methicillin resistant Staphylococcus aureus; F17.200 Nicotine dependence, unspecified, uncomplicated; D63.8 Anemia in other chronic diseases classified elsewhere; N18.9 Chronic kidney disease, unspecified
CPT/HCPCS: 36415; 36430; 36569; 36600; 71010; 76937; 80048; 80053; 81001; 81003; 82550; 82553; 82803; 83605; 83735; 83880; 83930; 83935; 84100; 84134; 84300; 84443; 84484; 84560; 85025; 85610; 85730; 86644; 86850; 86900; 86901; 86920; 87040; 87045; 87075; 87081; 87086; 92526; 92610; 93005; 94640; 94660; 94664; 96361; 96365; 96366; 96367; C1769; J0743; J1335; J1450; J2270; J2370; J2997; J3370; J3475; J3480; J7030; J7040; J7050; P9016; P9059

== ENCOUNTER 2016-09-26 19:57 | Inpatient (IN) | payer MEDICARE, OTHER ==
[~2016-09-26] VITALS: Ht 154.9 cm; Wt 50.0 kg
[2016-09-26] MEDS ORDERED: AZTREONAM 1 GM/NS (PMX) 50 ML IVPB STA (20:05)
[2016-09-26] MEDS ORDERED: VANCOMYCIN 1 GM (PMX) 250 ML IVPB STA (20:05)
[2016-09-26] MEDS ORDERED: morphine 4 MG/ML VIAL IV STA (20:12)
[2016-09-26] MEDS ORDERED: SOD CHLORIDE 0.9% 1,000 ML IV STA ×2 (20:12)
[2016-09-26] MEDS ORDERED: ONDANSETRON 4 MG INJ IV STA (20:12)
[2016-09-26] MEDS ORDERED: SOD CHLORIDE 0.9% 250 ML IV ONE (20:13)
[2016-09-26] MEDS ORDERED: ONDANSETRON 4 MG INJ IV PRN ×2 (20:30→22:30)
[2016-09-26] MEDS ORDERED: ACETAMINOPHEN 325 MG TAB PO PRN (20:30)
[2016-09-26 20:43] LABS: ADD SCAN DIFF NO
[2016-09-26 20:46] LABS: ABNORMAL IP MESSAGE 1; BASOPHIL # 0.1 10^3/ul (0.0-0.1); BASOPHILS % 0.6 % (0.0-2.0); EOSINOPHILS # 0.5 10^3/ul (0.0-0.5); EOSINOPHILS % 2.7 % (0.0-7.0); HEMATOCRIT 26.9 % (37.0-47.0); HEMOGLOBIN 8.2 g/dl (12.0-16.0); LYMPHOCYTES # 2.3 10^3/ul (0.8-2.9); LYMPHOCYTES % 12.5 % (15.0-51.0); MEAN CORPUSCULAR HEMOGLOBIN 25.5 pg (29.0-33.0); MEAN CORPUSCULAR HGB CONC 30.5 g/dl (32.0-37.0); MEAN CORPUSCULAR VOLUME 83.8 fl (82.0-101.0); MEAN PLATELET VOLUME 8.6 fl (7.4-10.4); MONOCYTE # 1.8 10^3/ul (0.3-0.9); MONOCYTES % 9.4 % (0.0-11.0); NEUTROPHIL # 13.8 10^3/ul (1.6-7.5); NEUTROPHILS % 74.1 % (39.0-77.0); PLATELET COUNT 551 10^3/UL (140-415); RED BLOOD COUNT 3.21 10^6/ul (4.20-5.40); WHITE BLOOD COUNT 18.7 10^3/ul (4.8-10.8)
[2016-09-26 20:56] LABS: INR 1.31; PROTIME 16.4 Sec (12.2-14.2); PT RATIO 1.3
[2016-09-26 20:56] LABS: ADD UMIC YES; UR BILIRUBIN (Dip) NEGATIVE (NEGATIVE); UR BLOOD (Dip) NEGATIVE (NEGATIVE); UR CLARITY CLEAR (CLEAR); UR COLOR LT. YELLOW (YELLOW); UR GLUCOSE (Dip) NEGATIVE (NEGATIVE); UR KETONES (Dip) NEGATIVE (NEGATIVE); UR LEUKOCYTE ESTERASE (Dip) 1+ (NEGATIVE); UR NITRITE (Dip) NEGATIVE (NEGATIVE); UR TOTAL PROTEIN (Dip) TRACE (NEGATIVE); UR UROBILINOGEN (Dip) 0.2 E.U./dL (0.1-1.0)
[2016-09-26 20:57] LABS: PARTIAL THROMBOPLASTIN TIME 52.6 Sec (25.0-35.0)
[2016-09-26 21:09] LABS: UR TRIPLE PHOSPHATE CRYSTAL FEW
[2016-09-26 21:10] LABS: URINE RBCS 0-2 /HPF (0)
--- NOTE | 2016-09-26 21:18 | RADRPT ---
PROCEDURE: XR Chest AP portable CLINICAL INDICATION: Possible sepsis TECHNIQUE: An AP portable radiograph of the chest was submitted. COMPARISON: 08/30/2016 FINDINGS: Support Hardware: None Cardiovascular: The heart remains mildly enlarged and the aorta again appears slightly atherosclerot ic with the pulmonary vasculature upper normal. Lung Snell: There is been no significant interval change to the large mass projecting through the l ateral left lower lung zone. There is been further improvement with regards to the right upper lobe infiltrate. There is interstitial infiltrate again seen in the right lower lung zone. Pleural Spaces: No pneumothorax or pleural effusion is identified. Osseous Structures: Mild diffuse degenerative spine changes are again noted. Soft Tissues: The soft tissues appear unremarkable. IMPRESSION: 1. No change to the large mass projecting to the left lateral lower lung zone. 2. Improving right upper lobe infiltrate with interstitial infiltrate again seen in the right lower lung zone. No effusion is present. 3. Persistent mild cardiomegaly with atherosclerotic change involving the aorta. Physician Zoe Date Time Electronically viewed and signed by Physician Zoe on 09/26/2016 21:17 /
[2016-09-26 21:33] LABS: ALBUMIN 2.6 g/dl (3.3-4.9); CHLORIDE 91 mmol/L (97-110); POTASSIUM 4.2 mmol/L (3.5-5.1); SODIUM 130 mmol/L (135-144)
[2016-09-26 21:35] LABS: CREATININE 0.37 mg/dl (0.44-1.00)
[2016-09-26 21:36] LABS: ALANINE AMINOTRANSFERASE 24 IU/L (13-69); ALBUMIN/GLOBULIN RATIO 0.54; ALKALINE PHOSPHATASE 216 IU/L (42-121); ANION GAP 15 (8-16); ASPARTATE AMINO TRANSFERASE 29 IU/L (15-46); BILIRUBIN,INDIRECT 0.3 mg/dl (0-1.1); BILIRUBIN,TOTAL 0.3 mg/dl (0.2-1.3); BLOOD UREA NITROGEN 15 mg/dl (7-20); CALCIUM 8.2 mg/dl (8.4-10.2); CARBON DIOXIDE 28 mmol/L (21-31); GLUCOSE 104 mg/dl (70-220); TOTAL PROTEIN 7.4 g/dl (6.1-8.1)
[2016-09-26 21:51] LABS: TROPONIN-I < 0.012 ng/ml (0.00-0.12)
[2016-09-26] MEDS ORDERED: SOD CHLORIDE 0.9% 250 ML IV* ONE (22:18)
[2016-09-26 22:20] VITALS: BP 99/54; PULSE 107; RESP 18
--- NOTE | 2016-09-26 22:29 | ERA ---
ER Documentation Chief Complaint Date/Time DATE: 09/26/16 TIME: 22:26 Chief Complaint sent from [facility] for wbc 19.6, hgb 7.5. A&O x 4 HPI Patient is a 66-year-old female with anemia and cancer presents for low red blood cell count and high white blood cell count. The patient was sent by Dr. Dozier from [facility] for admission. The patient said that she was " not feeling well all weekend". She was brought in by ambulance. She said that she had a fever but did not check her temperature. She has had cough and urinary symptoms as well as sore throat. She has had no treatment as of yet. ROS All systems reviewed and are negative except as per history of present illness. Medications Home Meds Active Scripts Pantoprazole* (Pantoprazole*) 40 Mg Tablet.dr, 40 MG PO BID@06,18 for 30 Days Prov:JILL MYERS 01/04/16 Losartan Potassium* (Cozaar*) 50 Mg Tablet, 50 MG PO DAILY for 30 Days, TAB Prov:REGJILL KENYON 01/04/16 Ferrous Sulfate* (Ferrous Sulfate*) 325 Mg Tabec, 325 MG PO BID for 30 Days, TAB Prov:REGJILL KENYON 01/04/16 Duloxetine Hcl* (Cymbalta*) 20 Mg Capsule.dr, 20 MG PO DAILY for 30 Days Prov:JILL MYERS 01/04/16 Docusate Sodium* (Colace*) 100 Mg Capsule, 100 MG PO Q12H Y for CONSTIPATION, # 30 CAP Prov:JILL MYERS 01/04/16 Doxazosin Mesylate* (Cardura*) 2 Mg Tablet, 2 MG PO QPM for 30 Days, TAB Prov:JILL MYERS 01/04/16 Reported Medications Alprazolam* (Xanax*) 0.5 Mg Tab, 0.5 MG PO Q12 Y for ANXIETY, TAB 05/23/16 Levothyroxine Sodium* (Synthroid*) 125 Mcg Tablet, 125 MCG PO BEFORE BREAKFAST, #30 TAB 05/23/16 Clopidogrel Bisulfate (Clopidogrel) 75 Mg Tablet, 75 MG PO DAILY, #30 TAB 05/23/16 Metoprolol Tartrate* (Lopressor*) 50 Mg Tab, 50 MG PO BID, #60 TAB hold if SBP <110 or HR <60 05/23/16 Atorvastatin Calcium* (Atorvastatin Calcium*) 20 Mg Tablet, 20 MG PO QHS, #30 TAB 05/23/16 Lactobacillus Acidoph/Bulgaricus* (Floranex*) 1 Each Tablet, 1 TAB.CHEW PO TID, TAB.CHEW 05/23/16 Gabapentin* (Gabapentin*) 300 Mg Capsule, 300 MG PO TID, #90 CAP 05/23/16 Famotidine* (Famotidine*) 20 Mg Tablet, 20 MG PO DAILY, #30 TAB 05/23/16 Ipratropium-Albuterol (Ipratropium-Albuterol) 0.5-3 Mg/3 Ml Ampul.neb, 3 ML INHALATION Q8 Y for SHORTNESS OF BREATH, #30 VIAL 05/23/16 Ascorbic Acid* (Ascorbic Acid*) 500 Mg/5 Ml Syrup, 500 MG PO BID, #300 ML 05/23/16 Zolpidem Tartrate* (Ambien*) 5 Mg Tablet, 5 MG PO QHS Y for INSOMNIA, #30 TAB 05/23/16 Morphine Sulfate* (Ms Contin*) 60 Mg Tablet.sa, 60 MG PO TID, TAB.SA 01/31/16 Diazepam* (Diazepam*) 10 Mg Tablet, 10 MG PO DAILY, TAB 01/31/16 Allergies Allergies: Coded Allergies: Penicillins (Verified Allergy, Intermediate, RASH, 06/22/16) aspirin (Verified Adverse Reaction, Mild, GI DISTRESS, 06/22/16) ibuprofen (Verified Adverse Reaction, Mild, GI DISTRESS, 06/22/16) PMhx/Soc History of Surgery: No Anesthesia Reaction: No Hx Neurological Disorder: No Hx Respiratory Disorders: Yes (COPD) Hx Cardiac Disorders: No Hx Psychiatric Problems: No Hx Alcohol Use: No Hx Substance Use: No Hx Tobacco Use: Yes Smoking Status: Current every day smoker FmHx Family History: diabetes Physical Exam Vitals Vital Signs Date Time Temp Pulse Resp B/P Pulse Ox O2 Delivery O2 Flow Rate FiO2 09/26/16 20:00 98.3 108 18 91/70 97 Physical Exam Const: Mild distress Head: Atraumatic Eyes: Normal Conjunctiva ENT: Normal External Ears, Nose and Mouth. Neck: Full range of motion..~ No meningismus. Resp: Clear to auscultation bilaterally Cardio: Regular rate and rhythm, no murmurs Abd: Soft, non tender, non distended. Normal bowel sounds Skin: No petechiae or rashes Back: No midline or flank tenderness Ext: No cyanosis, or edema Neur: Awake and alert Psych: Normal Mood and Affect Result Diagram: 09/26/16202309/26/16 2100 Results 24 hrs Current Medications Medications (Trade) Dose Ordered Sig/Tray Route PRN Reason Start Time Stop Time Status Last Admin Dose Admin Vancomycin HCl 250 ml @ 125 mls/hr ONCE STAT IVPB 09/26/16 20:05 09/26/16 22:04 DC 09/26/16 20:30 Aztreonam (Azactam 1gm/NS (Pmx)) 50 ml @ 100 mls/hr ONCE STAT IVPB 09/26/16 20:05 09/26/16 20:34 DC 09/26/16 20:48 Procedures/MDM EKG read by me: Rate/Rhythm: Regular rate and rhythm at a normal rate Intervals: Normal Impression: No evidence of ischemia or arrhythmia PROCEDURE: XR Chest AP portable CLINICAL INDICATION: Possible sepsis TECHNIQUE: An AP portable radiograph of the chest was submitted. COMPARISON: 08/30/2016 FINDINGS: Support Hardware: None Cardiovascular: The heart remains mildly enlarged and the aorta again appears slightly atherosclerotic with the pulmonary vasculature upper normal. Lung Snell: There is been no significant interval change to the large mass projecting through the lateral left lower lung zone. There is been further improvement with regards to the right upper lobe infiltrate. There is interstitial infiltrate again seen in the right lower lung zone. Pleural Spaces: No pneumothorax or pleural effusion is identified. Osseous Structures: Mild diffuse degenerative spine changes are again noted. Soft Tissues: The soft tissues appear unremarkable. IMPRESSION: 1. No change to the large mass projecting to the left lateral lower lung zone. 2. Improving right upper lobe infiltrate with interstitial infiltrate again seen in the right lower lung zone. No effusion is present. 3. Persistent mild cardiomegaly with atherosclerotic change involving the aorta. Physician Zoe Date Time Electronically viewed and signed by Physician Zoe on 09/26/2016 21:17 Admit MDM: Patient's infectious symptoms have not stabilized and the patient is at risk of rapid decompensation. The patient will be admitted for careful hydration, antibiotic therapy, and infectious source control. Severe Sepsis criteria: Infectious source: Pneumonia End organ damage indicated by: Lactate greater than 2 Sepsis Management: Time of recognition of sepsis: 20:24 Within 3 hours of recognition: Blood cultures x 2 before broad-spectrum antibiotics: Yes 30 ml/kg NS bolus Completed Initial lactate 2.3 Repeat lactate 0.8 Time of recognition of septic shock: No septic shock Septic Shock Assessment: Any lactic acid > 4.0 No Persistent hypotension (SBP < 90 or 40 mmHg drop, MAP < 65) despite 30 mL/kg IV fluid bolus No Volume Re-assessment for Septic Shock (post 30 ml/kg bolus): No septic shock at this time Persistent Hypotension Treatment: Comfort care No Central line Not Required Vasopressor started Not required I considered further perfusion assessment with CVP measurement, SCVO2, bedside ultrasound volume assessment, passive leg raise, trial of further fluid bolus. And proceeded with 30 ml/kg fluid bolus of NSS, broad spectrum antibiotics, and admission. Accepting Care Team Current data and ongoing care discussed. Admitting Physician: Dr. Dozier who is the patient's primary doctor Payroll Bookkeeper(s): None Outstanding Data: Culture results Critical Care: Critical care time 35 minutes excluding all billable procedures Emergent fluid management while maintaining close respiratory support. Provision of immediate and broad-spectrum antibiotic therapy. Simultaneous assessment for possible sources in order to direct targeted therapy. Consideration for invasive and chemical support to prevent cardiopulmonary collapse. Departure Diagnosis: Primary Impression: Leukocytosis Qualified Code: D72.829 - Leukocytosis, unspecified type Additional Impressions: Anemia Qualified Code: D64.9 - Anemia, unspecified type Severe sepsis Condition: Serious GORGE RODGERS MD Sep 26, 2016 22:29
[2016-09-26] MEDS ORDERED: VANCOMYCIN IV PER PHARMACY XX SCH (22:30)
[2016-09-26] MEDS ORDERED: IMIPENEM/CILASTATIN 1,000 MG in SOD CHLORIDE 0.9% 250 ML IVPB ONE (22:30)
[2016-09-26 23:00] VITALS: Ht 154.9 cm; Wt 50.0 kg
[2016-09-26] MEDS: CROMOLYN 4% 26ML NAS INH NASAL SCH (23:00)
[2016-09-26] MEDS ORDERED: DOCUSATE SODIUM 100 MG CAP PO PRN (23:00)
--- NOTE | 2016-09-26 23:00 | HP ---
Date/Time of Note Date/Time of Note DATE: 09/26/16 TIME: 22:26 Assessment/Plan VTE Prophylaxis VTE Prophylaxis Intervention: SCD's Assessment/Plan Assessment/Plan ALLERGIC TO PENICILLIN, ASPIRIN, AND IBUPROFEN. -Severe sepsis with leukocytosis. Will obtain urine and blood cultures. - per ID consult, notified - Vanco - Aztreonam - blood c/s -urine c/s - Anemia of chronic disease - transfuse 2 units Packed Red Blood Cells - Back pain sec to sacral wound - morphine IVP - Chronic obstructive pulmonary disease. - Multiple decubitus ulcers with history of debridement. - Chronic urinary retention. - Left lung squamous cell carcinoma. - Hx of Congestive heart failure. WEF 55% in 12/31 continue metoprolol - Hypotension but patient is asymptomatic - Pepcid for peptic ulcer disease prophylaxis -.Sequential compression device for deep venous thrombosis prophylaxis. Further recommendations based on clinical course. Plan of care discussed with Dr. Dozier/staff HPI/ROS Admit Date/Time Admit Date/Time Sep 26, 2016 at 20:07 Hx of Present Illness This is a 66-year-old female a assisted facility resident, with past medical history of COPD and ALLERGIES TO PENICILLIN, ASPIRIN AND IBUPROFEN. a long-term smoker, history of cancer was admitted with leukocytosis and significant anemia. Also has c/o stated fever, c/o cough and urinary symptoms as well as sore throat. Patient was admitted under Dr Dozier for further evaluation and treatment. ID , Cardiology consults were obtained. ROS Respiratory: shortness of breath Cardiovascular: no complaints Gastrointestinal: no complaints Musculoskeletal: back pain Skin: other PMH/Family/Social Past Medical History FAMILY HISTORY: Noncontributory. SOCIAL HISTORY: Patient is a resident of assisted facility. Patient is a long-term smoker, continues to smoke. No alcohol. Patient denies any alcohol and denies any illicit drug use. ALLERGIES: PATIENT IS ALLERGIC TO PENICILLIN, ASPIRIN, AND IBUPROFEN. Past Surgical History Status post wound debridement, status post back surgery, details not available. Social History A assisted facility resident. Alcohol Use: none Smoking Status: Smoker,current status unk Drug Use: none Exam/Review of Systems Vital Signs Vitals Vital Signs Date Time Temp Pulse Resp B/P Pulse Ox O2 Delivery O2 Flow Rate FiO2 09/26/16 21:50 111 18 97/70 99 Nasal Cannula 2.0 09/26/16 20:00 98.3 Exam Constitutional: alert, well developed Psych: nl mood/affect Neck: non-tender Respiratory: diminished breath sounds Cardiovascular: nl pulses, regular rate and rhythm Gastrointestinal: non-tender, other (GT tube intact), soft Musculoskeletal: nl extremities to inspection, other Extremities: normal pulses Neurological: confused, nl speech Skin: other Lymph: nontender Labs Result Diagram: 09/26/16202309/26/16 2100 Medications Medications Current Medications Imipenem/ Cilastatin Sodium 1000 mg/Sodium Chloride 250 ml @ 166.667 mls/hr ONCE ONCE IVPB ; Start 09/26/16 at 22:30; Stop 09/26/16 at 23:59 Aztreonam 50 ml @ 100 mls/hr Q8 IVPB ; Start 09/26/16 at 22:30; Status UNV Sodium Chloride (NS) 250 ml @ 0 mls/hr Q0M ONCE IV* ; Start 09/26/16 at 22:18; Stop 09/26/16 at 22:19; Status UNV Ondansetron HCl (Zofran Inj) 4 mg Q6 PRN IV NAUSEA AND/OR VOMITING; Start 09/26 at 22:30 Procedures Procedures PROCEDURE: XR Chest AP portable CLINICAL INDICATION: Possible sepsis TECHNIQUE: An AP portable radiograph of the chest was submitted. COMPARISON: 08/30/2016 FINDINGS: Support Hardware: None Cardiovascular: The heart remains mildly enlarged and the aorta again appears slightly atherosclerotic with the pulmonary vasculature upper normal. Lung Snell: There is been no significant interval change to the large mass projecting through the lateral left lower lung zone. There is been further improvement with regards to the right upper lobe infiltrate. There is interstitial infiltrate again seen in the right lower lung zone. Pleural Spaces: No pneumothorax or pleural effusion is identified. Osseous Structures: Mild diffuse degenerative spine changes are again noted. Soft Tissues: The soft tissues appear unremarkable. IMPRESSION: 1. No change to the large mass projecting to the left lateral lower lung zone. 2. Improving right upper lobe infiltrate with interstitial infiltrate again seen in the right lower lung zone. No effusion is present. 3. Persistent mild cardiomegaly with atherosclerotic change involving the aorta. ___ VIKASH CASTANEDA Sep 26, 2016 22:37
[2016-09-26] MEDS: morphine 2 MG INJ IV PRN (23:10)
[2016-09-27] VITALS (9 sets, daily range): BP systolic 82–102; BP diastolic 51–69; PULSE 92–97; RESP 18–21
[2016-09-27] MEDS: AZTREONAM 1 GM/NS (PMX) 50 ML IVPB SCH ×4 (00:24→23:19)
[2016-09-27] MEDS: morphine 2 MG INJ IV PRN ×2 (03:13→07:44)
[2016-09-27] MEDS ORDERED: VITAMIN A & D 5 GM OINT PACKET TOP ONE (03:18)
[2016-09-27] MEDS ORDERED: PENDING SANTYL ORDER FOR WOUND CARE XX PRN (04:00)
[2016-09-27] MEDS ORDERED: COLLAGENASE 30 GM TUBE TOP PRN (05:00)
[2016-09-27 05:34] LABS: IRON 21 ug/dl (35-150)
[2016-09-27 05:36] LABS: ALBUMIN 2.4 g/dl (3.3-4.9); BILIRUBIN,INDIRECT 0.2 mg/dl (0-1.1); BILIRUBIN,TOTAL 0.2 mg/dl (0.2-1.3); CALCIUM 8.1 mg/dl (8.4-10.2); CREATININE 0.38 mg/dl (0.44-1.00); POTASSIUM 4.5 mmol/L (3.5-5.1); TOTAL PROTEIN 6.9 g/dl (6.1-8.1)
[2016-09-27 05:43] LABS: TOTAL IRON BINDING CAPACITY 165 ug/dl (241-421)
[2016-09-27] MEDS ORDERED: PANTOPRAZOLE 40 MG INJ IV SCH (06:00)
[2016-09-27] MEDS ORDERED: PANTOPRAZOLE (EC) 40 MG TAB PO SCH (06:00)
[2016-09-27 06:01] LABS: THYROID STIMULATING HORMONE 2.76 MIU/L (0.465-4.680)
[2016-09-27] MEDS: LEVOTHYROXINE 125 MCG TAB PO SCH (06:11)
[2016-09-27] MEDS ORDERED: VANCOMYCIN 1 GM in NS 250 ML IVPB SCH (08:00)
[2016-09-27] MEDS ORDERED: METOPROLOL 50 MG TAB PO SCH (09:00)
[2016-09-27] MEDS: LOSARTAN 50 MG TAB PO SCH (09:00)
[2016-09-27] MEDS: CROMOLYN 4% 26ML NAS INH NASAL SCH ×4 (09:11→20:38)
[2016-09-27] MEDS: COLLAGENASE 30 GM TUBE TOP SCH (09:13)
[2016-09-27] MEDS: morphine (ER) 30 MG TAB PO SCH ×3 (09:15→21:00)
[2016-09-27] MEDS: GABAPENTIN 300 MG CAP PO SCH ×3 (09:15→20:39)
[2016-09-27] MEDS: DULOXETINE 20 MG CAP DR PO SCH (09:15)
[2016-09-27] MEDS: FERROUS SULFATE (EC) 325 MG TAB PO SCH ×2 (09:15→20:38)
[2016-09-27] MEDS: LACTOBACILLUS CHEW TAB PO SCH ×3 (09:15→20:38)
[2016-09-27] MEDS: DIAZEPAM 5 MG TAB PO SCH (09:15)
[2016-09-27] MEDS: ASCORBIC ACID 500 MG TAB PO SCH ×2 (09:16→20:38)
[2016-09-27 10:37] LABS: ADD SCAN DIFF NO
[2016-09-27 10:44] LABS: ABNORMAL IP MESSAGE 1; BASOPHIL # 0.1 10^3/ul (0.0-0.1); BASOPHILS % 0.8 % (0.0-2.0); EOSINOPHILS # 0.4 10^3/ul (0.0-0.5); EOSINOPHILS % 2.4 % (0.0-7.0); HEMATOCRIT 28.2 % (37.0-47.0); HEMOGLOBIN 8.9 g/dl (12.0-16.0); LYMPHOCYTES # 1.6 10^3/ul (0.8-2.9); LYMPHOCYTES % 9.1 % (15.0-51.0); MEAN CORPUSCULAR HEMOGLOBIN 26.4 pg (29.0-33.0); MEAN CORPUSCULAR HGB CONC 31.6 g/dl (32.0-37.0); MEAN CORPUSCULAR VOLUME 83.7 fl (82.0-101.0); MEAN PLATELET VOLUME 8.3 fl (7.4-10.4); MONOCYTE # 1.6 10^3/ul (0.3-0.9); MONOCYTES % 9.4 % (0.0-11.0); NEUTROPHIL # 13.6 10^3/ul (1.6-7.5); NEUTROPHILS % 77.6 % (39.0-77.0); PLATELET COUNT 456 10^3/UL (140-415); RED BLOOD COUNT 3.37 10^6/ul (4.20-5.40); RED CELL DISTRIBUTION WIDTH 15.9 % (11.5-14.5); WHITE BLOOD COUNT 17.5 10^3/ul (4.8-10.8)
[2016-09-27] MEDS ORDERED: SOD CHLORIDE 0.9% 250 ML IV ONE (13:00)
[2016-09-27] MEDS: SOD CHLORIDE 0.9% 1,000 ML IV SCH (13:58)
[2016-09-27] MEDS: ACETAMINOPHEN 325 MG TAB PO PRN ×2 (15:27→20:39)
[2016-09-27] MEDS: VANCOMYCIN 750 MG in SOD CHLORIDE 0.9% 150 ML IVPB SCH (20:37)
[2016-09-27] MEDS: ATORVASTATIN 20 MG TAB PO SCH (20:38)
[2016-09-27] MEDS ORDERED: DOXAZOSIN 2 MG TAB PO SCH (21:00)
[2016-09-27] MEDS: METOPROLOL 50 MG TAB PO SCH (21:00)
[2016-09-27] MEDS ORDERED: SOD CHLORIDE 0.9% 500 ML IV ONE (21:00)
[2016-09-28 01:10] VITALS: BP 97/67; PULSE 92
[2016-09-28] MEDS: ALPRAZOLAM 0.5 MG TAB PO PRN (02:47)
[2016-09-28] MEDS: ACETAMINOPHEN 325 MG TAB PO PRN (02:47)
[2016-09-28] MEDS ORDERED: VITAMIN A & D 5 GM OINT PACKET TOP ONE (03:06)
[2016-09-28 05:00] VITALS: BP 97/61; PULSE 96; RESP 20
[2016-09-28] MEDS: LEVOTHYROXINE 125 MCG TAB PO SCH (05:10)
[2016-09-28] MEDS: AZTREONAM 1 GM/NS (PMX) 50 ML IVPB SCH ×2 (05:10→13:36)
[2016-09-28] MEDS: LANSOPRAZOLE 30 MG CAP GTB SCH (05:10)
[2016-09-28 07:14] LABS: ADD SCAN DIFF NO
[2016-09-28 07:20] LABS: BASOPHIL # 0.1 10^3/ul (0.0-0.1); BASOPHILS % 0.6 % (0.0-2.0); EOSINOPHILS # 0.5 10^3/ul (0.0-0.5); EOSINOPHILS % 3.3 % (0.0-7.0); HEMATOCRIT 34.6 % (37.0-47.0); HEMOGLOBIN 10.6 g/dl (12.0-16.0); LYMPHOCYTES # 1.4 10^3/ul (0.8-2.9); LYMPHOCYTES % 9.7 % (15.0-51.0); MEAN CORPUSCULAR HEMOGLOBIN 26.2 pg (29.0-33.0); MEAN CORPUSCULAR HGB CONC 30.6 g/dl (32.0-37.0); MEAN CORPUSCULAR VOLUME 85.4 fl (82.0-101.0); MEAN PLATELET VOLUME 8.1 fl (7.4-10.4); MONOCYTE # 1.1 10^3/ul (0.3-0.9); MONOCYTES % 7.7 % (0.0-11.0); NEUTROPHIL # 11.6 10^3/ul (1.6-7.5); PLATELET COUNT 462 10^3/UL (140-415); RED BLOOD COUNT 4.05 10^6/ul (4.20-5.40); RED CELL DISTRIBUTION WIDTH 16.4 % (11.5-14.5); WHITE BLOOD COUNT 14.9 10^3/ul (4.8-10.8)
[2016-09-28 07:37] VITALS: BP 99/72; RESP 18
--- NOTE | 2016-09-28 08:00 | CONS ---
Date/Time of Note Date/Time of Note DATE: 09/28/16 TIME: 07:54 Assessment/Plan Assessment/Plan Additional Assessment/Plan 1. Sepsis with leukocytosis Continue abx, urine/blood cultures pending 2. Anemia of chronic disease - s/p 2 units Packed Red Blood Cells 3. Chronic obstructive pulmonary disease. 4. Multiple decubitus ulcers with history of debridement. 5. Chronic urinary retention. 6. Left lung squamous cell carcinoma. 7. Hx of Congestive heart failure. WEF 55% in 12/31 continue metoprolol 8.C/O Back pain sec to sacral wound - morphine IVP 9. Hypotension -Remains asymptomatic but if further drop in bp will stop metoprolol -will recheck echo - last one 9 months back Consultation Date/Type/Reason Admit Date/Time Sep 26, 2016 at 20:07 Hx of Present Illness Patient is a 66-year-old female with anemia and cancer presents for anemia and leukocytosis. The patient was sent by Dr. Dozier from [facility] for admission. The patient said that she was "not feeling well all weekend". She was brought in by ambulance. She said that she had a fever but did not check her temperature. She has had cough and urinary symptoms as well as sore throat. The patient had peristent hypotension but no sycnope and remains stabe with no chest pain and no overt CHF Psychological: nl mood/affect Social History Alcohol Use: none Smoking Status: Smoker,current status unk Drug Use: none Exam/Review of Systems Vital Signs Vitals Vital Signs Date Time Temp Pulse Resp B/P Pulse Ox O2 Delivery O2 Flow Rate FiO2 09/28/16 07:37 97.6 100 18 99/72 95 09/28/16 05:00 Nasal Cannula 2.0 Intake and Output 09/27/16 09/27/16 09/28/16 15:00 23:00 07:00 Intake Total 500 ml 1170 ml 1450 ml Output Total 600 ml 500 ml Balance 500 ml 570 ml 950 ml Results Result Diagram: 09/27/16 1000 09/27/16 0427 Results 24 hrs Laboratory Tests Test 09/27/16 10:00 09/28/16 06:50 White Blood Count 17.5 H Red Blood Count 3.37 L Hemoglobin 8.9 L Hematocrit 28.2 L Mean Corpuscular Volume 83.7 Mean Corpuscular Hemoglobin 26.4 L Mean Corpuscular Hemoglobin Concent 31.6 L Red Cell Distribution Width 15.9 H Platelet Count 456 H Mean Platelet Volume 8.3 Neutrophils % 77.6 H Lymphocytes % 9.1 L Monocytes % 9.4 Eosinophils % 2.4 Basophils % 0.8 Nucleated Red Blood Cells % 0.0 Neutrophils # 13.6 H Lymphocytes # 1.6 Monocytes # 1.6 H Eosinophils # 0.4 Basophils # 0.1 Nucleated Red Blood Cells # 0.0 Vancomycin Level Trough 12.0 Medications Medications Current Medications Aztreonam (Azactam 1gm/NS (Pmx)) 50 ml @ 100 mls/hr Q8 IVPB Last administered on 09/28/16 05:10; Admin Dose 100 MLS/HR; Start 09/27/16 at 00:00 Ondansetron HCl (Zofran Inj) 4 mg Q6 PRN IV NAUSEA AND/OR VOMITING; Start 09/26 at 22:30 Acetaminophen (Tylenol Tab) 650 mg Q6H PRN PO PAIN AND OR ELEVATED TEMP Last administered on 09/28/16 02:47; Admin Dose 650 MG; Start 09/26/16 at 23:00 Cromolyn Sodium (Nasalcrom) 1 spray QID NASAL Last administered on 09/27/16 20 :38; Admin Dose 1 SPRAY; Start 09/26/16 at 23:00 Alprazolam (Xanax) 0.5 mg Q12 PRN PO ANXIETY Last administered on 09/28/16 02: 47; Admin Dose 0.5 MG; Start 09/26/16 at 23:00 Ascorbic Acid (Vitamin C) 500 mg BID PO Last administered on 09/27/16 20:38; Admin Dose 500 MG; Start 09/27/16 at 09:00 Atorvastatin Calcium (Lipitor) 20 mg QHS PO Last administered on 09/27/16 20: 38; Admin Dose 20 MG; Start 09/27/16 at 21:00 Diazepam (Valium) 10 mg DAILY PO Last administered on 09/27/16 09:15; Admin Dose 10 MG; Start 09/27/16 at 09:00 Docusate Sodium (Colace) 100 mg Q12H PRN PO CONSTIPATION; Start 09/26/16 at 23: 00 Duloxetine HCl (Cymbalta) 20 mg DAILY PO Last administered on 09/27/16 09:15; Admin Dose 20 MG; Start 09/27/16 at 09:00 Ferrous Sulfate (Ferrous Sulfate (Ec)) 325 mg BID PO Last administered on 20:38; Admin Dose 325 MG; Start 09/27/16 at 09:00 Gabapentin (Neurontin) 300 mg TID PO Last administered on 09/27/16 20:39; Admin Dose 300 MG; Start 09/27/16 at 09:00 Lactobacillus Acidoph/Bulgaricus (Floranex) 1 tab TID PO Last administered on 20:38; Admin Dose 1 TAB; Start 09/27/16 at 09:00 Losartan Potassium (Cozaar) 50 mg DAILY PO ; Start 09/27/16 at 09:00 Zolpidem Tartrate (Ambien) 5 mg QHS PRN PO INSOMNIA; Start 09/26/16 at 23:00 Morphine Sulfate (Ms Contin (Er)) 60 mg TID PO Last administered on 09/27/16 09:15; Admin Dose 60 MG; Start 09/27/16 at 09:00 Collagenase (Santyl) 1 applic DAILY TOP Last administered on 09/27/16 09:13; Admin Dose 1 APPLIC; Start 09/27/16 at 09:00 Collagenase 1 applic 1 applic PRN PRN TOP SOILED OR DISLODGED DRESSING; Start 09/27/16 at 05:00 Vancomycin HCl 750 mg/Sodium Chloride 150 ml @ 75 mls/hr Q12H IVPB Last administered on 09/27/16 20:37; Admin Dose 75 MLS/HR; Start 09/27/16 at 20:00 Sodium Chloride (NS) 1,000 ml @ 40 mls/hr Q24H IV Last administered on 13:58; Admin Dose 40 MLS/HR; Start 09/27/16 at 13:00 Lansoprazole (Prevacid) 30 mg DAILY@06 GTB Last administered on 09/28/16 05:10 ; Admin Dose 30 MG; Start 09/28/16 at 06:00 Metoprolol Tartrate (Lopressor) 25 mg BID PO ; Start 09/27/16 at 21:00 RALPH LUCAS MD Sep 28, 2016 08:00
[2016-09-28] MEDS: LOSARTAN 50 MG TAB PO SCH (08:18)
[2016-09-28] MEDS: METOPROLOL 50 MG TAB PO SCH ×3 (08:19→20:43)
[2016-09-28] MEDS: GABAPENTIN 300 MG CAP PO SCH ×3 (08:28→20:33)
[2016-09-28] MEDS: ASCORBIC ACID 500 MG TAB PO SCH ×2 (08:28→20:33)
[2016-09-28] MEDS: DULOXETINE 20 MG CAP DR PO SCH (08:28)
[2016-09-28] MEDS: LACTOBACILLUS CHEW TAB PO SCH ×3 (08:28→20:33)
[2016-09-28] MEDS: VANCOMYCIN 750 MG in SOD CHLORIDE 0.9% 150 ML IVPB SCH ×2 (08:28→20:32)
[2016-09-28] MEDS: FERROUS SULFATE (EC) 325 MG TAB PO SCH ×2 (08:28→20:33)
[2016-09-28 08:34] LABS: CALCIUM 8.3 mg/dl (8.4-10.2); CREATININE 0.32 mg/dl (0.44-1.00); POTASSIUM 4.6 mmol/L (3.5-5.1)
--- NOTE | 2016-09-28 08:57 | CONS ---
DATE OF ADMISSION: 09/26/2016 DATE OF CONSULTATION: 09/27/2016 TYPE OF CONSULTATION: Infectious Disease. REASON FOR CONSULTATION: Antibiotic management. HISTORY OF PRESENT ILLNESS: Gumaro García is a 66-year-old female who was sent from a skilled [facility] facility with leukocytosis and significant anemia. Her past problems include history of cancer i n the past. She now presents with anemia and leukocytosis. She stated that she had a fever, but di d not check her temperature. She has a cough and urinary symptoms as well as sore throat. Past med ical problems include COPD and ALLERGIES TO PENICILLIN, ASPIRIN AND IBUPROFEN. The patient had blo od cultures done, urine cultures done and was started on vancomycin and aztreonam. PAST SURGICAL HISTORY: Status post wound debridement, status post back surgery. SOCIAL HISTORY: She resides in a assisted facility. She is a long-term smoker. She does no t drink or abuse drugs. ALLERGIES 1. PENICILLIN. 2. ASPIRIN. 3. IBUPROFEN. MEDICATIONS: Per chart. REVIEW OF SYSTEMS: Noncontributory. PHYSICAL EXAMINATION: GENERAL: The patient is a well-developed, well-nourished elderly female who is awake, confused, in no acute distress. VITAL SIGNS: Stable. She is afebrile. SKIN: Without generalized rash. HEENT: Within normal limits. NECK: Supple. LYMPH NODES: None palpable. CHEST: Decreased breath sounds at the bases. HEART: Without murmur or gallop. ABDOMEN: Soft, nontender. G-tube is intact. There is no organosplenomegaly or masses. EXTREMITIES: Without cyanosis, clubbing, or edema. RECTAL AND GENITAL: Deferred. NEUROLOGIC: As noted, she is confused. There are no focal neurological abnormalities. LABORATORY DATA: White count was 18.7, H and H of 8.2 and 26.9, platelet count 551,000. BUN a nd creatinine 15/0.37. Chest x-ray shows no change to the large mass projecting in left lateral lung zone. Improving right upper lobe infiltrate with interstitial infiltrate again seen in the right lower lung. Pleural eff usion, persistent mild cardiomegaly with atherosclerotic changes involving the aorta. IMPRESSION AND PLAN: Her urinalysis shows 1+ leukocyte esterase, but 0 to 2 white cells per high-po wer field. Her BUN and creatinine is 12/0.38 as noted. She has significant anemia and she has as we have seen significant changes in her lungs. She has a large mass and she has right upper lob e infiltrates with interstitial infiltrate in the right lower lung as well. We will continue her on her medication of vancomycin and aztreonam. She did receive a dose of imipenem. I will dictate my findings to Dr. Doizer. Dictated By: JUAN JO MD, JD/SANDER Conf#: [id number] DID#: [id number]
[2016-09-28] MEDS: CROMOLYN 4% 26ML NAS INH NASAL SCH ×4 (09:00→20:33)
[2016-09-28] MEDS: DIAZEPAM 5 MG TAB PO SCH (09:46)
[2016-09-28] MEDS: morphine (ER) 30 MG TAB PO SCH ×3 (09:46→20:33)
[2016-09-28 10:40] VITALS: BP 121/73; PULSE 107
[2016-09-28] MEDS: SOD CHLORIDE 0.9% 1,000 ML IV SCH (13:36)
--- NOTE | 2016-09-28 14:57 | PN ---
DATE: 09/28/2016 SUBJECTIVE: No acute changes. The patient is lying comfortably in bed. No fevers. LABORATORY DATA: WBC today 14.9, H and H 10.6 and 34.6, platelets 462, neutrophils 68, no bands. B UN 16, creatinine 0.32. MICROBIOLOGY: Blood cultures remain negative. Urine culture growing gram-negative rods. Wound cul ture growing gram-negative rods. Nares swab came back positive for MRSA. DIAGNOSTICS: Chest x-ray on admission revealed no change from previous reading. ANTIMICROBIALS: The patient is on: 1. IV vancomycin. 2. Aztreonam. ALLERGIES: PENICILLIN. PHYSICAL EXAMINATION: GENERAL: Cachectic elderly woman who is in no distress. HEENT: Head atraumatic, normocephalic. Sclerae anicteric. Buccal mucosa dry. NECK: Supple. Trachea midline. CHEST: Rise symmetrical. Breath sounds diminished. HEART: S1, S2. ABDOMEN: Soft, bowel sounds present. EXTREMITIES: Without cyanosis. SKIN: With unstageable sacral wound and multiple pressure sores. ASSESSMENT: 1. Recurrent sepsis. 2. Recurrent urinary tract infection. 3. Unstageable sacral decubitus. 4. Cachexia. 5. Methicillin-resistant Staphylococcus aureus nares colonization. 6. History of cancer of the lung. 7. History of Clostridium difficile colitis. 8. Dysphagia, status post percutaneous endoscopic gastrostomy. 9. ALLERGY TO PENICILLIN. PLAN: We are going to discontinue Azactam, start patient on meropenem. Add Bactroban to nares. Co ntinue vancomycin. Await for final cultures. Consider surgical evaluation for possible wound debri scarlett. Dictated By: RUBIN MAYEN SENIOR SAS DEVELOPER for JUAN COLLIER/SANDER Conf#: [id number] DID#: [id number]
[2016-09-28] MEDS: COLLAGENASE 30 GM TUBE TOP SCH (15:32)
--- NOTE | 2016-09-28 17:40 | PN ---
Date/Time of Note Date/Time of Note DATE: 09/28/16 TIME: 17:40 Assessment/Plan VTE Prophylaxis VTE Prophylaxis Intervention: SCD's, other Lines/Catheters IV Catheter Type (from Nrs): Saline Lock Urinary Cath still in place: Yes Reason Cath still needed: urinary retention Assessment/Plan Assessment/Plan ALLERGIC TO PENICILLIN, ASPIRIN, AND IBUPROFEN. -Severe sepsis with leukocytosis. Will obtain urine and blood cultures. - per ID consult, notified - Vanco - Aztreonam - blood c/s -urine c/s - Anemia of chronic disease - transfuse 2 units Packed Red Blood Cells - Back pain sec to sacral wound - morphine IVP - Chronic obstructive pulmonary disease. - Multiple decubitus ulcers with history of debridement. - Chronic urinary retention. - Left lung squamous cell carcinoma. - Hx of Congestive heart failure. WEF 55% in 12/31 continue metoprolol - per cardiology - Hypotension but patient is asymptomatic - Pepcid for peptic ulcer disease prophylaxis -.Sequential compression device for deep venous thrombosis prophylaxis. Further recommendations based on clinical course. Plan of care discussed with Dr. Dozier/staff Subjective 24 Hr Interval Summary Free Text/Dictation lying in bed, seems comfortable, afebrile, dw staff- no new events reported overnight. Constitutional: requiring O2 Respiratory: no complaints Cardiovascular: no complaints Gastrointestinal: no complaints Musculoskeletal: back pain Skin: other Neurologic: no complaints Exam/Review of Systems Vital Signs Vitals Vital Signs Date Time Temp Pulse Resp B/P Pulse Ox O2 Delivery O2 Flow Rate FiO2 09/28/16 14:02 2.0 09/28/16 13:48 Nasal Cannula 09/28/16 10:40 107 121/73 09/28/16 07:37 97.6 18 95 Intake and Output 09/27/16 09/27/16 09/28/16 15:00 23:00 07:00 Intake Total 500 ml 1170 ml 1450 ml Output Total 600 ml 500 ml Balance 500 ml 570 ml 950 ml Exam Constitutional: alert Respiratory: clear to auscultation, normal air movement Cardiovascular: nl pulses Gastrointestinal: non-tender, soft Musculoskeletal: muscle weakness Extremities: normal pulses Neurological: confused, nl speech Skin: other (sacral wound) Results Result Diagram: 09/28/16 0650 09/28/16 0650 Results 24 hrs Laboratory Tests Test 09/28/16 06:50 White Blood Count 14.9 H Red Blood Count 4.05 #L Hemoglobin 10.6 L Hematocrit 34.6 #L Mean Corpuscular Volume 85.4 Mean Corpuscular Hemoglobin 26.2 L Mean Corpuscular Hemoglobin Concent 30.6 L Red Cell Distribution Width 16.4 H Platelet Count 462 H Mean Platelet Volume 8.1 Neutrophils % 78.0 H Lymphocytes % 9.7 L Monocytes % 7.7 Eosinophils % 3.3 Basophils % 0.6 Nucleated Red Blood Cells % 0.0 Neutrophils # 11.6 H Lymphocytes # 1.4 Monocytes # 1.1 H Eosinophils # 0.5 Basophils # 0.1 Nucleated Red Blood Cells # 0.0 Sodium Level 131 L Potassium Level 4.6 Chloride Level 102 Carbon Dioxide Level 24 Anion Gap 10 Blood Urea Nitrogen 16 Creatinine 0.32 L Glucose Level 145 # Calcium Level 8.3 L Vancomycin Level Trough 12.0 Medications Medications Current Medications Ondansetron HCl (Zofran Inj) 4 mg Q6 PRN IV NAUSEA AND/OR VOMITING; Start 09/26 at 22:30 Acetaminophen (Tylenol Tab) 650 mg Q6H PRN PO PAIN AND OR ELEVATED TEMP Last administered on 09/28/16 02:47; Admin Dose 650 MG; Start 09/26/16 at 23:00 Cromolyn Sodium (Nasalcrom) 1 spray QID NASAL Last administered on 09/28/16 15 :58; Admin Dose 1 SPRAY; Start 09/26/16 at 23:00 Alprazolam (Xanax) 0.5 mg Q12 PRN PO ANXIETY Last administered on 09/28/16 02: 47; Admin Dose 0.5 MG; Start 09/26/16 at 23:00 Ascorbic Acid (Vitamin C) 500 mg BID PO Last administered on 09/28/16 08:28; Admin Dose 500 MG; Start 09/27/16 at 09:00 Atorvastatin Calcium (Lipitor) 20 mg QHS PO Last administered on 09/27/16 20: 38; Admin Dose 20 MG; Start 09/27/16 at 21:00 Diazepam (Valium) 10 mg DAILY PO Last administered on 09/28/16 09:46; Admin Dose 10 MG; Start 09/27/16 at 09:00 Docusate Sodium (Colace) 100 mg Q12H PRN PO CONSTIPATION; Start 09/26/16 at 23: 00 Duloxetine HCl (Cymbalta) 20 mg DAILY PO Last administered on 09/28/16 08:28; Admin Dose 20 MG; Start 09/27/16 at 09:00 Ferrous Sulfate (Ferrous Sulfate (Ec)) 325 mg BID PO Last administered on 08:28; Admin Dose 325 MG; Start 09/27/16 at 09:00 Gabapentin (Neurontin) 300 mg TID PO Last administered on 09/28/16 13:36; Admin Dose 300 MG; Start 09/27/16 at 09:00 Lactobacillus Acidoph/Bulgaricus (Floranex) 1 tab TID PO Last administered on 13:36; Admin Dose 1 TAB; Start 09/27/16 at 09:00 Losartan Potassium (Cozaar) 50 mg DAILY PO ; Start 09/27/16 at 09:00 Zolpidem Tartrate (Ambien) 5 mg QHS PRN PO INSOMNIA; Start 09/26/16 at 23:00 Morphine Sulfate (Ms Contin (Er)) 60 mg TID PO Last administered on 09/28/16 15:29; Admin Dose 60 MG; Start 09/27/16 at 09:00 Collagenase (Santyl) 1 applic DAILY TOP Last administered on 09/28/16 15:32; Admin Dose 1 APPLIC; Start 09/27/16 at 09:00 Collagenase 1 applic 1 applic PRN PRN TOP SOILED OR DISLODGED DRESSING; Start 09/27/16 at 05:00 Vancomycin HCl 750 mg/Sodium Chloride 150 ml @ 75 mls/hr Q12H IVPB Last administered on 09/28/16 08:28; Admin Dose 75 MLS/HR; Start 09/27/16 at 20:00 Sodium Chloride (NS) 1,000 ml @ 40 mls/hr Q24H IV Last administered on 13:36; Admin Dose 40 MLS/HR; Start 09/27/16 at 13:00 Lansoprazole (Prevacid) 30 mg DAILY@06 GTB Last administered on 09/28/16 05:10 ; Admin Dose 30 MG; Start 09/28/16 at 06:00 Metoprolol Tartrate 25 mg 25 mg BID PO Last administered on 09/28/16 15:31; Admin Dose 25 MG; Start 09/27/16 at 21:00 Meropenem (Merrem 500 Mg/ 100 ml (Pmx)) 100 ml @ 200 mls/hr Q8 IVPB ; Start at 22:00 Mupirocin (Bactroban) 1 applic BID TOP ; Start 09/28/16 at 21:00 VIKASH CASTANEDA Sep 28, 2016 17:40
--- NOTE | 2016-09-28 17:41 | PN ---
Date/Time of Note Date/Time of Note DATE: 09/28/16 TIME: 17:40 Assessment/Plan VTE Prophylaxis VTE Prophylaxis Intervention: SCD's Lines/Catheters IV Catheter Type (from Nrs): Saline Lock Urinary Cath still in place: Yes Reason Cath still needed: urinary retention Assessment/Plan Assessment/Plan - ALLERGIC TO PENICILLIN, ASPIRIN, AND IBUPROFEN. -Severe sepsis with leukocytosis. Will obtain urine and blood cultures. - per ID consult - Vanco - Aztreonam - blood c/s -urine c/s - Anemia of chronic disease - transfuse 2 units Packed Red Blood Cells - Back pain sec to sacral wound - morphine IVP - Chronic obstructive pulmonary disease. - Multiple decubitus ulcers with history of debridement. - Chronic urinary retention. - Left lung squamous cell carcinoma. - Hx of Congestive heart failure. WEF 55% in 12/31 continue metoprolol - per cardiology - Hypotension but patient is asymptomatic - Pepcid for peptic ulcer disease prophylaxis -.Sequential compression device for deep venous thrombosis prophylaxis. Further recommendations based on clinical course. Plan of care discussed with Dr. Dozier/staff Subjective 24 Hr Interval Summary Free Text/Dictation late entry for 09/27/16- nad, lying in bed, afebrile, dw staff- no new events reported overnight. Eyes: no complaints ENT: no complaints Respiratory: no complaints Cardiovascular: no complaints Gastrointestinal: no complaints Genitourinary: no complaints Musculoskeletal: back pain Skin: no complaints Neurologic: no complaints Endocrine: polyuria Exam/Review of Systems Vital Signs Vitals Vital Signs Date Time Temp Pulse Resp B/P Pulse Ox O2 Delivery O2 Flow Rate FiO2 09/28/16 14:02 2.0 09/28/16 13:48 Nasal Cannula 09/28/16 10:40 107 121/73 09/28/16 07:37 97.6 18 95 Intake and Output 09/27/16 09/27/16 09/28/16 15:00 23:00 07:00 Intake Total 500 ml 1170 ml 1450 ml Output Total 600 ml 500 ml Balance 500 ml 570 ml 950 ml Results Result Diagram: 09/28/16 0650 09/28/16 0650 Results 24 hrs Laboratory Tests Test 09/28/16 06:50 White Blood Count 14.9 H Red Blood Count 4.05 #L Hemoglobin 10.6 L Hematocrit 34.6 #L Mean Corpuscular Volume 85.4 Mean Corpuscular Hemoglobin 26.2 L Mean Corpuscular Hemoglobin Concent 30.6 L Red Cell Distribution Width 16.4 H Platelet Count 462 H Mean Platelet Volume 8.1 Neutrophils % 78.0 H Lymphocytes % 9.7 L Monocytes % 7.7 Eosinophils % 3.3 Basophils % 0.6 Nucleated Red Blood Cells % 0.0 Neutrophils # 11.6 H Lymphocytes # 1.4 Monocytes # 1.1 H Eosinophils # 0.5 Basophils # 0.1 Nucleated Red Blood Cells # 0.0 Sodium Level 131 L Potassium Level 4.6 Chloride Level 102 Carbon Dioxide Level 24 Anion Gap 10 Blood Urea Nitrogen 16 Creatinine 0.32 L Glucose Level 145 # Calcium Level 8.3 L Vancomycin Level Trough 12.0 Medications Medications Current Medications Ondansetron HCl (Zofran Inj) 4 mg Q6 PRN IV NAUSEA AND/OR VOMITING; Start 09/26 at 22:30 Acetaminophen (Tylenol Tab) 650 mg Q6H PRN PO PAIN AND OR ELEVATED TEMP Last administered on 09/28/16 02:47; Admin Dose 650 MG; Start 09/26/16 at 23:00 Cromolyn Sodium (Nasalcrom) 1 spray QID NASAL Last administered on 09/28/16 15 :58; Admin Dose 1 SPRAY; Start 09/26/16 at 23:00 Alprazolam (Xanax) 0.5 mg Q12 PRN PO ANXIETY Last administered on 09/28/16 02: 47; Admin Dose 0.5 MG; Start 09/26/16 at 23:00 Ascorbic Acid (Vitamin C) 500 mg BID PO Last administered on 09/28/16 08:28; Admin Dose 500 MG; Start 09/27/16 at 09:00 Atorvastatin Calcium (Lipitor) 20 mg QHS PO Last administered on 09/27/16 20: 38; Admin Dose 20 MG; Start 09/27/16 at 21:00 Diazepam (Valium) 10 mg DAILY PO Last administered on 09/28/16 09:46; Admin Dose 10 MG; Start 09/27/16 at 09:00 Docusate Sodium (Colace) 100 mg Q12H PRN PO CONSTIPATION; Start 09/26/16 at 23: 00 Duloxetine HCl (Cymbalta) 20 mg DAILY PO Last administered on 09/28/16 08:28; Admin Dose 20 MG; Start 09/27/16 at 09:00 Ferrous Sulfate (Ferrous Sulfate (Ec)) 325 mg BID PO Last administered on 08:28; Admin Dose 325 MG; Start 09/27/16 at 09:00 Gabapentin (Neurontin) 300 mg TID PO Last administered on 09/28/16 13:36; Admin Dose 300 MG; Start 09/27/16 at 09:00 Lactobacillus Acidoph/Bulgaricus (Floranex) 1 tab TID PO Last administered on 13:36; Admin Dose 1 TAB; Start 09/27/16 at 09:00 Losartan Potassium (Cozaar) 50 mg DAILY PO ; Start 09/27/16 at 09:00 Zolpidem Tartrate (Ambien) 5 mg QHS PRN PO INSOMNIA; Start 09/26/16 at 23:00 Morphine Sulfate (Ms Contin (Er)) 60 mg TID PO Last administered on 09/28/16 15:29; Admin Dose 60 MG; Start 09/27/16 at 09:00 Collagenase (Santyl) 1 applic DAILY TOP Last administered on 09/28/16 15:32; Admin Dose 1 APPLIC; Start 09/27/16 at 09:00 Collagenase 1 applic 1 applic PRN PRN TOP SOILED OR DISLODGED DRESSING; Start 09/27/16 at 05:00 Vancomycin HCl 750 mg/Sodium Chloride 150 ml @ 75 mls/hr Q12H IVPB Last administered on 09/28/16 08:28; Admin Dose 75 MLS/HR; Start 09/27/16 at 20:00 Sodium Chloride (NS) 1,000 ml @ 40 mls/hr Q24H IV Last administered on 13:36; Admin Dose 40 MLS/HR; Start 09/27/16 at 13:00 Lansoprazole (Prevacid) 30 mg DAILY@06 GTB Last administered on 09/28/16 05:10 ; Admin Dose 30 MG; Start 09/28/16 at 06:00 Metoprolol Tartrate 25 mg 25 mg BID PO Last administered on 09/28/16 15:31; Admin Dose 25 MG; Start 09/27/16 at 21:00 Meropenem (Merrem 500 Mg/ 100 ml (Pmx)) 100 ml @ 200 mls/hr Q8 IVPB ; Start at 22:00 Mupirocin (Bactroban) 1 applic BID TOP ; Start 09/28/16 at 21:00 VIKASH CASTANEDA Sep 28, 2016 17:41
[2016-09-28 20:20] VITALS: BP 92/59; RESP 19
[2016-09-28] MEDS: MUPIROCIN 2% 22 GM OINT TOP SCH (20:32)
[2016-09-28] MEDS: ATORVASTATIN 20 MG TAB PO SCH (20:33)
[2016-09-28] MEDS: MEROPENEM 500 MG/100 ML (PMX) 100 ML IVPB SCH (23:58)
[2016-09-29] MEDS: ZOLPIDEM 5 MG TAB PO PRN (00:27)
[2016-09-29] MEDS: ALPRAZOLAM 0.5 MG TAB PO PRN (04:10)
[2016-09-29] MEDS: MEROPENEM 500 MG/100 ML (PMX) 100 ML IVPB SCH ×2 (05:19→13:43)
[2016-09-29] MEDS: LEVOTHYROXINE 125 MCG TAB PO SCH (05:20)
[2016-09-29] MEDS: LANSOPRAZOLE 30 MG CAP GTB SCH (05:20)
[2016-09-29 07:11] LABS: ADD SCAN DIFF NO
[2016-09-29 07:15] VITALS: BP 93/65; RESP 20
[2016-09-29 07:24] LABS: BASOPHIL # 0.1 10^3/ul (0.0-0.1); BASOPHILS % 0.5 % (0.0-2.0); EOSINOPHILS # 0.6 10^3/ul (0.0-0.5); EOSINOPHILS % 3.9 % (0.0-7.0); HEMATOCRIT 31.9 % (37.0-47.0); HEMOGLOBIN 9.6 g/dl (12.0-16.0); LYMPHOCYTES # 1.8 10^3/ul (0.8-2.9); LYMPHOCYTES % 11.7 % (15.0-51.0); MEAN CORPUSCULAR HEMOGLOBIN 26.1 pg (29.0-33.0); MEAN CORPUSCULAR HGB CONC 30.1 g/dl (32.0-37.0); MEAN CORPUSCULAR VOLUME 86.7 fl (82.0-101.0); MEAN PLATELET VOLUME 8.4 fl (7.4-10.4); MONOCYTE # 1.3 10^3/ul (0.3-0.9); MONOCYTES % 8.4 % (0.0-11.0); NEUTROPHIL # 11.3 10^3/ul (1.6-7.5); NEUTROPHILS % 74.8 % (39.0-77.0); PLATELET COUNT 470 10^3/UL (140-415); RED BLOOD COUNT 3.68 10^6/ul (4.20-5.40); RED CELL DISTRIBUTION WIDTH 16.7 % (11.5-14.5); WHITE BLOOD COUNT 15.2 10^3/ul (4.8-10.8)
[2016-09-29 07:33] LABS: POTASSIUM 4.1 mmol/L (3.5-5.1)
[2016-09-29 07:35] LABS: CREATININE 0.33 mg/dl (0.44-1.00)
[2016-09-29 07:36] LABS: CALCIUM 8.3 mg/dl (8.4-10.2)
[2016-09-29] MEDS: LACTOBACILLUS CHEW TAB PO SCH ×3 (08:09→20:42)
[2016-09-29] MEDS: ASCORBIC ACID 500 MG TAB PO SCH ×2 (08:09→20:42)
[2016-09-29] MEDS: METOPROLOL 50 MG TAB PO SCH ×2 (08:09→20:43)
[2016-09-29] MEDS: VANCOMYCIN 750 MG in SOD CHLORIDE 0.9% 150 ML IVPB SCH (08:09)
[2016-09-29] MEDS: FERROUS SULFATE (EC) 325 MG TAB PO SCH ×2 (08:09→20:42)
[2016-09-29] MEDS: GABAPENTIN 300 MG CAP PO SCH ×3 (08:09→20:42)
[2016-09-29] MEDS: DULOXETINE 20 MG CAP DR PO SCH (08:09)
[2016-09-29] MEDS: morphine (ER) 30 MG TAB PO SCH ×3 (08:10→20:43)
[2016-09-29] MEDS: LOSARTAN 50 MG TAB PO SCH (08:11)
[2016-09-29] MEDS: CROMOLYN 4% 26ML NAS INH NASAL SCH ×4 (09:00→20:44)
[2016-09-29] MEDS: COLLAGENASE 30 GM TUBE TOP SCH (09:00)
[2016-09-29] MEDS: DIAZEPAM 5 MG TAB PO SCH (09:00)
[2016-09-29 10:42] VITALS: BP 98/66; PULSE 105; RESP 18
[2016-09-29] MEDS: MUPIROCIN 2% 22 GM OINT TOP SCH ×2 (13:43→20:44)
[2016-09-29] MEDS ORDERED: AMIKACIN IV PER PHARMACY XX SCH (15:30)
--- NOTE | 2016-09-29 15:46 | PN ---
Date/Time of Note Date/Time of Note DATE: 09/29/16 TIME: 15:46 Assessment/Plan VTE Prophylaxis VTE Prophylaxis Intervention: SCD's Lines/Catheters IV [facility]ter Type (from [facility]): Peripheral IV Urinary Cath still in place: Yes Reason Cath still needed: urinary retention Assessment/Plan Chief Complaint/Hosp Course Patient is a 66-year-old female with anemia and cancer presents for anemia and leukocytosis. The patient was sent by Dr. Dozier from [facility] for admission. The patient said that she was "not feeling well all weekend". She was brought in by ambulance. She said that she had a fever but did not check her temperature. She has had cough and urinary symptoms as well as sore throat. The patient had peristent hypotension but no sycnope and remains stabe with no chest pain and no overt CHF Problems: Assessment/Plan 1. Sepsis with leukocytosis Continue abx, urine/blood cultures pending 2. Anemia of chronic disease - s/p 2 units Packed Red Blood Cells 3. Chronic obstructive pulmonary disease. 4. Multiple decubitus ulcers with history of debridement. 5. Chronic urinary retention. 6. Left lung squamous cell carcinoma. 7. Hx of Congestive heart failure. WEF 55% in 12/31 continue metoprolol 8.C/O Back pain sec to sacral wound - morphine IVP 9. Hypotension -Remains asymptomatic but if further drop in bp will stop metoprolol -w Subjective 24 Hr Interval Summary Free Text/Dictation the patiernt is alert Exam/Review of Systems Vital Signs Vitals Vital Signs Date Time Temp Pulse Resp B/P Pulse Ox O2 Delivery O2 Flow Rate FiO2 09/29/16 12:16 Nasal Cannula 2.0 09/29/16 10:42 105 18 98/66 09/29/16 07:15 98.2 93 Intake and Output 09/28/16 09/28/16 09/29/16 15:00 23:00 07:00 Intake Total 360 ml 1310 ml 1380 ml Output Total 400 ml 1250 ml Balance 360 ml 910 ml 130 ml Results Result Diagram: 09/29/16 0618 09/29/16 0618 Results 24 hrs Laboratory Tests Test 09/29/16 06:18 White Blood Count 15.2 H Red Blood Count 3.68 L Hemoglobin 9.6 L Hematocrit 31.9 L Mean Corpuscular Volume 86.7 Mean Corpuscular Hemoglobin 26.1 L Mean Corpuscular Hemoglobin Concent 30.1 L Red Cell Distribution Width 16.7 H Platelet Count 470 H Mean Platelet Volume 8.4 Neutrophils % 74.8 Lymphocytes % 11.7 L Monocytes % 8.4 Eosinophils % 3.9 Basophils % 0.5 Nucleated Red Blood Cells % 0.0 Neutrophils # 11.3 H Lymphocytes # 1.8 Monocytes # 1.3 H Eosinophils # 0.6 H Basophils # 0.1 Nucleated Red Blood Cells # 0.0 Sodium Level 134 L Potassium Level 4.1 Chloride Level 100 Carbon Dioxide Level 27 Anion Gap 11 Blood Urea Nitrogen 14 Creatinine 0.33 L Glucose Level 122 Calcium Level 8.3 L Medications Medications Current Medications Ondansetron HCl (Zofran Inj) 4 mg Q6 PRN IV NAUSEA AND/OR VOMITING; Start 09/26 at 22:30 Acetaminophen (Tylenol Tab) 650 mg Q6H PRN PO PAIN AND OR ELEVATED TEMP Last administered on 09/28/16 02:47; Admin Dose 650 MG; Start 09/26/16 at 23:00 Alprazolam (Xanax) 0.5 mg Q12 PRN PO ANXIETY Last administered on 09/29/16 04: 10; Admin Dose 0.5 MG; Start 09/26/16 at 23:00 Ascorbic Acid (Vitamin C) 500 mg BID PO Last administered on 09/29/16 08:09; Admin Dose 500 MG; Start 09/27/16 at 09:00 Atorvastatin Calcium (Lipitor) 20 mg QHS PO Last administered on 09/28/16 20: 33; Admin Dose 20 MG; Start 09/27/16 at 21:00 Diazepam (Valium) 10 mg DAILY PO Last administered on 09/28/16 09:46; Admin Dose 10 MG; Start 09/27/16 at 09:00 Docusate Sodium (Colace) 100 mg Q12H PRN PO CONSTIPATION; Start 09/26/16 at 23: 00 Duloxetine HCl (Cymbalta) 20 mg DAILY PO Last administered on 09/29/16 08:09; Admin Dose 20 MG; Start 09/27/16 at 09:00 Ferrous Sulfate (Ferrous Sulfate (Ec)) 325 mg BID PO Last administered on 08:09; Admin Dose 325 MG; Start 09/27/16 at 09:00 Gabapentin (Neurontin) 300 mg TID PO Last administered on 09/29/16 13:43; Admin Dose 300 MG; Start 09/27/16 at 09:00 Lactobacillus Acidoph/Bulgaricus (Floranex) 1 tab TID PO Last administered on 13:43; Admin Dose 1 TAB; Start 09/27/16 at 09:00 Losartan Potassium (Cozaar) 50 mg DAILY PO ; Start 09/27/16 at 09:00 Zolpidem Tartrate (Ambien) 5 mg QHS PRN PO INSOMNIA Last administered on 00:27; Admin Dose 5 MG; Start 09/26/16 at 23:00 Morphine Sulfate (Ms Contin (Er)) 60 mg TID PO Last administered on 09/29/16 13:43; Admin Dose 60 MG; Start 09/27/16 at 09:00 Collagenase (Santyl) 1 applic DAILY TOP Last administered on 09/28/16 15:32; Admin Dose 1 APPLIC; Start 09/27/16 at 09:00 Collagenase 1 applic 1 applic PRN PRN TOP SOILED OR DISLODGED DRESSING; Start 09/27/16 at 05:00 Sodium Chloride (NS) 1,000 ml @ 40 mls/hr Q24H IV Last administered on 13:36; Admin Dose 40 MLS/HR; Start 09/27/16 at 13:00 Lansoprazole (Prevacid) 30 mg DAILY@06 GTB Last administered on 09/29/16 05:20 ; Admin Dose 30 MG; Start 09/28/16 at 06:00 Metoprolol Tartrate (Lopressor) 25 mg BID PO Last administered on 09/28/16 15: 31; Admin Dose 25 MG; Start 09/27/16 at 21:00 Mupirocin (Bactroban) 1 applic BID TOP Last administered on 09/29/16 13:43; Admin Dose 1 APPLIC; Start 09/28/16 at 21:00 Cromolyn Sodium (Nasalcrom) 1 spray QID NASAL Last administered on 09/29/16 13 :44; Admin Dose 1 SPRAY; Start 09/29/16 at 11:02 Linezolid (Zyvox) 600 mg BID PO ; Start 09/29/16 at 21:00 Amikacin Sulfate AMIKACIN PER PHARMACY NOTE XX ; Start 09/29/16 at 15:30 Amikacin Sulfate/ Dextrose (Amikacin/D5W) 102.8 ml @ 102.8 mls/ hr Q24H IVPB ; Start 09/29/16 at 17:00 RALPH LUCAS MD Sep 29, 2016 15:46
--- NOTE | 2016-09-29 16:05 | PN ---
DATE: 09/29/2016 SUBJECTIVE: No acute changes. The patient is lying comfortably in bed. No fevers. No nausea, vom iting, diarrhea, tolerates tube feedings. WBC 16.2, H and H 9.6 and 31.9, platelets 470. No shift, no bands. BUN 14, creatinine 0.83. MICROBIOLOGY: A urine culture growing Proteus mirabilis and Klebsiella pneumoniae, both susceptible to amikacin and Zosyn. Wound culture growing Enterococcus, Klebsiella, extended-spectrum beta-lact amase, Citrobacter. INDWELLINGS: PEG, George. ANTIMICROBIALS The patient is on: 1. Meropenem. 2. Topical Bactroban to nares. 3. Vancomycin. PHYSICAL EXAMINATION GENERAL: Cachectic, elderly, woman who is in no distress. HEENT: Head atraumatic, normocephalic. Sclerae are anicteric. Buccal mucosa dry. NECK: Supple. CHEST: Rise symmetrical. Breath sounds diminished to bases. HEART: S1, S2. ABDOMEN: Soft, bowel tones present. EXTREMITIES: Without cyanosis, edema. ASSESSMENT 1. Recurrent sepsis. 2. Polymicrobial urinary tract infection. 3. Unstageable sacral decubitus. 4. Methicillin-resistant Staphylococcus aureus nares colonization. 5. Cachexia. 6. Lung cancer. 7. ALLERGY TO PENICILLIN. 8. History of Clostridium difficile colitis. PLAN: The patient remains stable. We are going to change antibiotics to Zyvox and amikacin. Wait for final wound cultures. Continue local wound care and Bactroban to nares. Dictated By: RUBIN MAYEN RELEASE MANAGER for JUAN COLLIER/SANDER Conf#: [id number] DID#: [id number]
[2016-09-29] MEDS: SOD CHLORIDE 0.9% 1,000 ML IV SCH (17:34)
[2016-09-29] MEDS: AMIKACIN 700 MG in DEXTROSE 5% 100 ML IVPB SCH (17:34)
--- NOTE | 2016-09-29 17:39 | PN ---
Date/Time of Note Date/Time of Note DATE: 09/29/16 TIME: 17:39 Assessment/Plan VTE Prophylaxis VTE Prophylaxis Intervention: other Lines/Catheters IV Catheter Type (from Nrs): Peripheral IV Urinary Cath still in place: Yes Reason Cath still needed: urinary retention Assessment/Plan Assessment/Plan - ALLERGIC TO PENICILLIN, ASPIRIN, AND IBUPROFEN 1. Severe sepsis with leukocytosis. Will obtain urine and blood cultures. - per ID - Vanco - Aztreonam - blood c/s -urine c/s 2. Anemia of chronic disease - transfuse 2 units Packed Red Blood Cells 3. Chronic obstructive pulmonary disease. 4. Multiple decubitus ulcers with history of debridement. 5. Chronic urinary retention. 6. Left lung squamous cell carcinoma. 7. Congestive heart failure. 8.C/O Back pain sec to sacral wound - morphine IVP 8. Pepcid for peptic ulcer disease prophylaxis 9.Sequential compression device for deep venous thrombosis prophylaxis. Further recommendations based on clinical course. Plan of care discussed with Dr. Dozier. Exam/Review of Systems Vital Signs Vitals Vital Signs Date Time Temp Pulse Resp B/P Pulse Ox O2 Delivery O2 Flow Rate FiO2 09/29/16 15:54 3.0 09/29/16 12:16 Nasal Cannula 09/29/16 10:42 105 18 98/66 09/29/16 07:15 98.2 93 Intake and Output 09/28/16 09/28/16 09/29/16 15:00 23:00 07:00 Intake Total 360 ml 1310 ml 1380 ml Output Total 400 ml 1250 ml Balance 360 ml 910 ml 130 ml Exam Constitutional: alert Respiratory: clear to auscultation, normal air movement Cardiovascular: nl pulses, regular rate and rhythm Gastrointestinal: non-tender, soft Musculoskeletal: muscle weakness Extremities: normal pulses Neurological: confused, nl speech Skin: other (sacral decub) Results Result Diagram: 09/29/16 0618 09/29/16 0618 Results 24 hrs Laboratory Tests Test 09/29/16 06:18 White Blood Count 15.2 H Red Blood Count 3.68 L Hemoglobin 9.6 L Hematocrit 31.9 L Mean Corpuscular Volume 86.7 Mean Corpuscular Hemoglobin 26.1 L Mean Corpuscular Hemoglobin Concent 30.1 L Red Cell Distribution Width 16.7 H Platelet Count 470 H Mean Platelet Volume 8.4 Neutrophils % 74.8 Lymphocytes % 11.7 L Monocytes % 8.4 Eosinophils % 3.9 Basophils % 0.5 Nucleated Red Blood Cells % 0.0 Neutrophils # 11.3 H Lymphocytes # 1.8 Monocytes # 1.3 H Eosinophils # 0.6 H Basophils # 0.1 Nucleated Red Blood Cells # 0.0 Sodium Level 134 L Potassium Level 4.1 Chloride Level 100 Carbon Dioxide Level 27 Anion Gap 11 Blood Urea Nitrogen 14 Creatinine 0.33 L Glucose Level 122 Calcium Level 8.3 L Medications Medications Current Medications Ondansetron HCl (Zofran Inj) 4 mg Q6 PRN IV NAUSEA AND/OR VOMITING; Start 09/26 at 22:30 Acetaminophen (Tylenol Tab) 650 mg Q6H PRN PO PAIN AND OR ELEVATED TEMP Last administered on 09/28/16 02:47; Admin Dose 650 MG; Start 09/26/16 at 23:00 Alprazolam (Xanax) 0.5 mg Q12 PRN PO ANXIETY Last administered on 09/29/16 04: 10; Admin Dose 0.5 MG; Start 09/26/16 at 23:00 Ascorbic Acid (Vitamin C) 500 mg BID PO Last administered on 09/29/16 08:09; Admin Dose 500 MG; Start 09/27/16 at 09:00 Atorvastatin Calcium (Lipitor) 20 mg QHS PO Last administered on 09/28/16 20: 33; Admin Dose 20 MG; Start 09/27/16 at 21:00 Diazepam (Valium) 10 mg DAILY PO Last administered on 09/28/16 09:46; Admin Dose 10 MG; Start 09/27/16 at 09:00 Docusate Sodium (Colace) 100 mg Q12H PRN PO CONSTIPATION; Start 09/26/16 at 23: 00 Duloxetine HCl (Cymbalta) 20 mg DAILY PO Last administered on 09/29/16 08:09; Admin Dose 20 MG; Start 09/27/16 at 09:00 Ferrous Sulfate (Ferrous Sulfate (Ec)) 325 mg BID PO Last administered on 08:09; Admin Dose 325 MG; Start 09/27/16 at 09:00 Gabapentin (Neurontin) 300 mg TID PO Last administered on 09/29/16 13:43; Admin Dose 300 MG; Start 09/27/16 at 09:00 Lactobacillus Acidoph/Bulgaricus (Floranex) 1 tab TID PO Last administered on 13:43; Admin Dose 1 TAB; Start 09/27/16 at 09:00 Losartan Potassium (Cozaar) 50 mg DAILY PO ; Start 09/27/16 at 09:00 Zolpidem Tartrate (Ambien) 5 mg QHS PRN PO INSOMNIA Last administered on 00:27; Admin Dose 5 MG; Start 09/26/16 at 23:00 Morphine Sulfate (Ms Contin (Er)) 60 mg TID PO Last administered on 09/29/16 13:43; Admin Dose 60 MG; Start 09/27/16 at 09:00 Collagenase (Santyl) 1 applic DAILY TOP Last administered on 09/28/16 15:32; Admin Dose 1 APPLIC; Start 09/27/16 at 09:00 Collagenase 1 applic 1 applic PRN PRN TOP SOILED OR DISLODGED DRESSING; Start 09/27/16 at 05:00 Sodium Chloride (NS) 1,000 ml @ 40 mls/hr Q24H IV Last administered on 17:34; Admin Dose 40 MLS/HR; Start 09/27/16 at 13:00 Lansoprazole (Prevacid) 30 mg DAILY@06 GTB Last administered on 09/29/16 05:20 ; Admin Dose 30 MG; Start 09/28/16 at 06:00 Metoprolol Tartrate (Lopressor) 25 mg BID PO Last administered on 09/28/16 15: 31; Admin Dose 25 MG; Start 09/27/16 at 21:00 Mupirocin (Bactroban) 1 applic BID TOP Last administered on 09/29/16 13:43; Admin Dose 1 APPLIC; Start 09/28/16 at 21:00 Cromolyn Sodium (Nasalcrom) 1 spray QID NASAL Last administered on 09/29/16 17 :34; Admin Dose 1 SPRAY; Start 09/29/16 at 11:02 Linezolid (Zyvox) 600 mg BID PO ; Start 09/29/16 at 21:00 Amikacin Sulfate AMIKACIN PER PHARMACY NOTE XX ; Start 09/29/16 at 15:30 Amikacin Sulfate/ Dextrose (Amikacin/D5W) 102.8 ml @ 102.8 mls/ hr Q24H IVPB Last administered on 09/29/16t 17:34; Admin Dose 102.8 MLS/HR; Start 09/29/16 at 17:00 Miscellaneous Information (*Rx Drug Level Order Reminder*) 1 ONCE ONCE XX ; Start 09/30/16 at 05:00; Stop 09/30/16 at 05:01 VIKASH CASTANEDA Sep 29, 2016 17:39
[2016-09-29] MEDS: ZYVOX 600 MG TAB PO SCH (20:42)
[2016-09-29] MEDS: ATORVASTATIN 20 MG TAB PO SCH (20:43)
[2016-09-29 21:01] VITALS: BP 87/59; RESP 18
[2016-09-29 21:43] VITALS: BP 99/64; PULSE 104
[2016-09-30] MEDS: ACETAMINOPHEN 325 MG TAB PO PRN ×3 (05:47→23:23)
[2016-09-30] MEDS: LANSOPRAZOLE 30 MG CAP GTB SCH (05:47)
[2016-09-30] MEDS: LEVOTHYROXINE 125 MCG TAB PO SCH (05:47)
--- NOTE | 2016-09-30 06:10 | GILP ---
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 The risk of the procedur e, related and unrelated complications, anesthetic risk, and alternatives were discussed with the esme mason and informed consent was obtained. DESCRIPTION OF PROCEDURE: The patient was brought to OR room #5, placed in the supine position, sed ated by the anesthesiologist, Dr. Norman. After optimal, scope was passed with much ease into the es ophagus and advanced further down into the stomach. The buried G-tube internal bumper was identifie d. Only 5% to 7% of it was visible through the internal stoma indicating that the G-tube bumper was buried into the subcutaneous tissue. The bumper was removed by the traction and through the same g astrocutaneous fistula, the guidewire was passed into the stomach. Guidewire was snared with transe ndoscopically-passed snare and the whole procedure was completed by modified Ponsky technique. Exte rnal bumper was secured. The internal bumper was confirmed and no complication identified. No blee ding seen. Patient tolerated the procedure very well. IMPRESSION: 1. Successful placement of G-tube done through the same gastrocutaneous fistula. 2. Removal of the G-tube which was buried in the subcutaneous tissue, confirmed on endoscopic findi ng. PLAN: Resume feeding through the G-tube now. Abdominal binder all the time. The family and the sta ff has been educated that abdominal binder should not be removed, otherwise G-tube make come out acc identally during the process of rotation or transfer. Dictated By: COTY KIRK MD PJ/NTS Conf#: [id number] DID#: [id number] CC: SHILPA BASSETT MD;*EndCC*
[2016-09-30 07:49] LABS: ALBUMIN 2.2 g/dl (3.3-4.9)
[2016-09-30 07:52] LABS: BILIRUBIN,INDIRECT 0.1 mg/dl (0-1.1); BILIRUBIN,TOTAL 0.1 mg/dl (0.2-1.3); TOTAL PROTEIN 6.6 g/dl (6.1-8.1)
--- NOTE | 2016-09-30 07:55 | RADRPT ---
PROCEDURE: US Abdomen. CLINICAL INDICATION: Elevated liver function tests TECHNIQUE: Ba scale and color Doppler imaging of the right upper quadrant COMPARISON: CT from 03/16/2016 FINDINGS: The aorta and visualized inferior vena cava are unremarkable in appearance. The liver is homogeneou s in echotexture and no focal liver lesions are seen. Hepatopedal flow in the main portal vein. The gallbladder is surgically absent. No intra or extrahepatic biliary dilatation is seen. The common bile duct measures 8 mm in maximal dimension which may be within normal limits for this postcholecys tectomy patient. The right kidney measures 12.3 cm. No hydronephrosis or renal calculi are seen. 1. 9 cm right renal cyst. The right kidney is slightly echogenic suggesting medical renal disease. Th e pancreas is partially obscured by bowel gas. No ascites is seen. IMPRESSION: Study slightly limited by bowel gas. no definite focal liver lesion. 8 mm common bile duct is like ly within normal limits for this postcholecystectomy patient. Right renal cyst and echogenic right kidney suggesting medical renal disease. RPTAT: HLBE Physician Seb Date Time Electronically viewed and signed by Physician Seb on 09/30/2016 07:54 MEE/
[2016-09-30 08:05] VITALS: BP 96/71; RESP 19
[2016-09-30] MEDS: LOSARTAN 50 MG TAB PO SCH (08:29)
[2016-09-30] MEDS: METOPROLOL 50 MG TAB PO SCH ×2 (08:29→22:29)
[2016-09-30] MEDS: ASCORBIC ACID 500 MG TAB PO SCH ×2 (08:32→22:16)
[2016-09-30] MEDS: FERROUS SULFATE (EC) 325 MG TAB PO SCH ×2 (08:32→20:28)
[2016-09-30] MEDS: CROMOLYN 4% 26ML NAS INH NASAL SCH ×4 (08:32→22:18)
[2016-09-30] MEDS: GABAPENTIN 300 MG CAP PO SCH ×3 (08:32→22:16)
--- NOTE | 2016-09-30 08:32 | PN ---
Date/Time of Note Date/Time of Note DATE: 09/30/16 TIME: 08:30 Assessment/Plan VTE Prophylaxis VTE Prophylaxis Intervention: SCD's Lines/Catheters IV Catheter Type (from [facility]): Peripheral IV Urinary Cath still in place: Yes Reason Cath still needed: urinary retention Assessment/Plan Chief Complaint/Hosp Course Patient is a 66-year-old female with anemia and cancer presents for anemia and leukocytosis. The patient was sent by Dr. Dozier from [facility] for admission. The patient said that she was "not feeling well all weekend". She was brought in by ambulance. She said that she had a fever but did not check her temperature. She has had cough and urinary symptoms as well as sore throat. The patient had peristent hypotension but no sycnope and remains stabe with no chest pain and no overt CHF Problems: Assessment/Plan 1. Sepsis with leukocytosis 2. Anemia of chronic disease 3. Chronic obstructive pulmonary disease. 4. Multiple decubitus ulcers with history of debridement. 5. Chronic urinary retention. 6. Left lung squamous cell carcinoma. 7. Hx of Congestive heart failure. 8.C/O Back pain sec to sacral wound 9. Hypotension -Remains asymptomatic but if further drop in bp will stop metoprolol > continue as hx of diastolic CHF with an EF of 55% -s/p G-Tube revision -on antibiotics -GI care Subjective 24 Hr Interval Summary Free Text/Dictation the patiebnt doing well post G-ube revision Exam/Review of Systems Vital Signs Vitals Vital Signs Date Time Temp Pulse Resp B/P Pulse Ox O2 Delivery O2 Flow Rate FiO2 09/30/16 08:05 97.7 95 19 96/71 95 09/30/16 00:53 2.0 09/29/16 20:40 Nasal Cannula Intake and Output 09/29/16 09/29/16 09/30/16 14:59 22:59 06:59 Intake Total 150 ml 462.8 ml 1100 ml Output Total 900 ml 10 ml Balance 150 ml -437.2 ml 1090 ml Results Result Diagram: 09/29/1618 09/29/1618 Results 24 hrs Laboratory Tests Test 09/30/16 05:30 Total Bilirubin 0.1 L Direct Bilirubin 0.00 Indirect Bilirubin 0.1 Aspartate Amino Transf (AST/SGOT) 25 Alanine Aminotransferase (ALT/SGPT) 18 Alkaline Phosphatase 169 H Total Protein 6.6 Albumin 2.2 L Medications Medications Current Medications Ondansetron HCl (Zofran Inj) 4 mg Q6 PRN IV NAUSEA AND/OR VOMITING; Start 09/26 at 22:30 Acetaminophen (Tylenol Tab) 650 mg Q6H PRN PO PAIN AND OR ELEVATED TEMP Last administered on 09/30/16 05:47; Admin Dose 650 MG; Start 09/26/16 at 23:00 Alprazolam (Xanax) 0.5 mg Q12 PRN PO ANXIETY Last administered on 09/29/16 04: 10; Admin Dose 0.5 MG; Start 09/26/16 at 23:00 Ascorbic Acid (Vitamin C) 500 mg BID PO Last administered on 09/29/16 20:42; Admin Dose 500 MG; Start 09/27/16 at 09:00 Atorvastatin Calcium (Lipitor) 20 mg QHS PO Last administered on 09/29/16 20: 43; Admin Dose 20 MG; Start 09/27/16 at 21:00 Diazepam (Valium) 10 mg DAILY PO Last administered on 09/28/16 09:46; Admin Dose 10 MG; Start 09/27/16 at 09:00 Docusate Sodium (Colace) 100 mg Q12H PRN PO CONSTIPATION; Start 09/26/16 at 23: 00 Duloxetine HCl (Cymbalta) 20 mg DAILY PO Last administered on 09/29/16 08:09; Admin Dose 20 MG; Start 09/27/16 at 09:00 Ferrous Sulfate (Ferrous Sulfate (Ec)) 325 mg BID PO Last administered on 20:42; Admin Dose 325 MG; Start 09/27/16 at 09:00 Gabapentin (Neurontin) 300 mg TID PO Last administered on 09/29/16 20:42; Admin Dose 300 MG; Start 09/27/16 at 09:00 Lactobacillus Acidoph/Bulgaricus (Floranex) 1 tab TID PO Last administered on 20:42; Admin Dose 1 TAB; Start 09/27/16 at 09:00 Losartan Potassium (Cozaar) 50 mg DAILY PO ; Start 09/27/16 at 09:00 Zolpidem Tartrate (Ambien) 5 mg QHS PRN PO INSOMNIA Last administered on 00:27; Admin Dose 5 MG; Start 09/26/16 at 23:00 Morphine Sulfate (Ms Contin (Er)) 60 mg TID PO Last administered on 09/29/16 20:43; Admin Dose 60 MG; Start 09/27/16 at 09:00 Collagenase (Santyl) 1 applic DAILY TOP Last administered on 09/28/16 15:32; Admin Dose 1 APPLIC; Start 09/27/16 at 09:00 Collagenase 1 applic 1 applic PRN PRN TOP SOILED OR DISLODGED DRESSING; Start 09/27/16 at 05:00 Sodium Chloride (NS) 1,000 ml @ 40 mls/hr Q24H IV Last administered on 17:34; Admin Dose 40 MLS/HR; Start 09/27/16 at 13:00 Lansoprazole (Prevacid) 30 mg DAILY@06 GTB Last administered on 09/30/16 05:47 ; Admin Dose 30 MG; Start 09/28/16 at 06:00 Metoprolol Tartrate (Lopressor) 25 mg BID PO Last administered on 09/28/16 15: 31; Admin Dose 25 MG; Start 09/27/16 at 21:00 Mupirocin (Bactroban) 1 applic BID TOP Last administered on 09/29/16 20:44; Admin Dose 1 APPLIC; Start 09/28/16 at 21:00 Cromolyn Sodium (Nasalcrom) 1 spray QID NASAL Last administered on 09/29/16 20 :44; Admin Dose 1 SPRAY; Start 09/29/16 at 11:02 Linezolid (Zyvox) 600 mg BID PO Last administered on 09/29/16 20:42; Admin Dose 600 MG; Start 09/29/16 at 21:00 Amikacin Sulfate AMIKACIN PER PHARMACY NOTE XX ; Start 09/29/16 at 15:30 Amikacin Sulfate/ Dextrose (Amikacin/D5W) 102.8 ml @ 102.8 mls/ hr Q24H IVPB Last administered on 09/29/16 17:34; Admin Dose 102.8 MLS/HR; Start 09/29/16 at 17:00 RALPH LUCAS MD Sep 30, 2016 08:32
[2016-09-30] MEDS: LACTOBACILLUS CHEW TAB PO SCH ×3 (08:33→22:16)
[2016-09-30] MEDS: morphine (ER) 30 MG TAB PO SCH ×3 (08:33→20:30)
[2016-09-30] MEDS: ZYVOX 600 MG TAB PO SCH ×2 (08:33→22:16)
[2016-09-30] MEDS: MUPIROCIN 2% 22 GM OINT TOP SCH ×2 (08:33→22:19)
[2016-09-30] MEDS: COLLAGENASE 30 GM TUBE TOP SCH (08:33)
[2016-09-30] MEDS: DIAZEPAM 5 MG TAB PO SCH (08:33)
[2016-09-30] MEDS: DULOXETINE 20 MG CAP DR PO SCH (08:33)
--- NOTE | 2016-09-30 12:39 | PN ---
Date/Time of Note Date/Time of Note DATE: 09/30/16 TIME: 12:38 Assessment/Plan VTE Prophylaxis VTE Prophylaxis Intervention: other Lines/Catheters IV Catheter Type (from Nrsg): Peripheral IV Urinary Cath still in place: Yes Reason Cath still needed: skin wounds contaminated by urine Assessment/Plan Chief Complaint/Hosp Course 1. Severe sepsis with leukocytosis. Will obtain urine and blood cultures. - Vanco - Aztreonam - blood c/s -urine c/s 2. Anemia of chronic disease - transfuse 2 units Packed Red Blood Cells 3. Chronic obstructive pulmonary disease. 4. Multiple decubitus ulcers with history of debridement. 5. Chronic urinary retention. 6. Left lung squamous cell carcinoma. 7. Congestive heart failure. 8.C/O Back pain sec to sacral wound - morphine IVP 8. Pepcid for peptic ulcer disease prophylaxis 9.Sequential compression device for deep venous thrombosis prophylaxis. Problems: Subjective 24 Hr Interval Summary Free Text/Dictation Patient resting comfortably Exam/Review of Systems Vital Signs Vitals Vital Signs Date Time Temp Pulse Resp B/P Pulse Ox O2 Delivery O2 Flow Rate FiO2 09/30/16 08:05 97.7 95 19 96/71 95 09/30/16 08:00 Nasal Cannula 2.0 Intake and Output 09/29/16 09/29/16 09/30/16 15:00 23:00 07:00 Intake Total 150 ml 462.8 ml 1100 ml Output Total 900 ml 10 ml Balance 150 ml -437.2 ml 1090 ml Exam Constitutional: well developed Head: atraumatic, normocephalic Neck: supple Respiratory: diminished breath sounds Cardiovascular: regular rate and rhythm Gastrointestinal: non-tender, soft Extremities: normal pulses Results Result Diagram: 09/29/1618 09/29/16 0618 Results 24 hrs Laboratory Tests Test 09/30/16 05:30 Total Bilirubin 0.1 L Direct Bilirubin 0.00 Indirect Bilirubin 0.1 Aspartate Amino Transf (AST/SGOT) 25 Alanine Aminotransferase (ALT/SGPT) 18 Alkaline Phosphatase 169 H Total Protein 6.6 Albumin 2.2 L Medications Medications Current Medications Ondansetron HCl (Zofran Inj) 4 mg Q6 PRN IV NAUSEA AND/OR VOMITING; Start 09/26 at 22:30 Acetaminophen (Tylenol Tab) 650 mg Q6H PRN PO PAIN AND OR ELEVATED TEMP Last administered on 09/30/16 05:47; Admin Dose 650 MG; Start 09/26/16 at 23:00 Alprazolam (Xanax) 0.5 mg Q12 PRN PO ANXIETY Last administered on 09/29/16 04: 10; Admin Dose 0.5 MG; Start 09/26/16 at 23:00 Ascorbic Acid (Vitamin C) 500 mg BID PO Last administered on 09/30/16 08:32; Admin Dose 500 MG; Start 09/27/16 at 09:00 Atorvastatin Calcium (Lipitor) 20 mg QHS PO Last administered on 09/29/16 20: 43; Admin Dose 20 MG; Start 09/27/16 at 21:00 Diazepam (Valium) 10 mg DAILY PO Last administered on 09/30/16 08:33; Admin Dose 10 MG; Start 09/27/16 at 09:00 Docusate Sodium (Colace) 100 mg Q12H PRN PO CONSTIPATION; Start 09/26/16 at 23: 00 Duloxetine HCl (Cymbalta) 20 mg DAILY PO Last administered on 09/30/16 08:33; Admin Dose 20 MG; Start 09/27/16 at 09:00 Ferrous Sulfate (Ferrous Sulfate (Ec)) 325 mg BID PO Last administered on 08:32; Admin Dose 325 MG; Start 09/27/16 at 09:00 Gabapentin (Neurontin) 300 mg TID PO Last administered on 09/30/16 12:21; Admin Dose 300 MG; Start 09/27/16 at 09:00 Lactobacillus Acidoph/Bulgaricus (Floranex) 1 tab TID PO Last administered on 12:21; Admin Dose 1 TAB; Start 09/27/16 at 09:00 Losartan Potassium (Cozaar) 50 mg DAILY PO ; Start 09/27/16 at 09:00 Zolpidem Tartrate (Ambien) 5 mg QHS PRN PO INSOMNIA Last administered on 00:27; Admin Dose 5 MG; Start 09/26/16 at 23:00 Morphine Sulfate (Ms Contin (Er)) 60 mg TID PO Last administered on 09/30/16 12:22; Admin Dose 60 MG; Start 09/27/16 at 09:00 Collagenase (Santyl) 1 applic DAILY TOP Last administered on 09/28/16 15:32; Admin Dose 1 APPLIC; Start 09/27/16 at 09:00 Collagenase 1 applic 1 applic PRN PRN TOP SOILED OR DISLODGED DRESSING; Start 09/27/16 at 05:00 Sodium Chloride (NS) 1,000 ml @ 40 mls/hr Q24H IV Last administered on 17:34; Admin Dose 40 MLS/HR; Start 09/27/16 at 13:00 Lansoprazole (Prevacid) 30 mg DAILY@06 GTB Last administered on 09/30/16 05:47 ; Admin Dose 30 MG; Start 09/28/16 at 06:00 Metoprolol Tartrate (Lopressor) 25 mg BID PO Last administered on 09/28/16 15: 31; Admin Dose 25 MG; Start 09/27/16 at 21:00 Mupirocin (Bactroban) 1 applic BID TOP Last administered on 09/30/16 08:33; Admin Dose 1 APPLIC; Start 09/28/16 at 21:00 Cromolyn Sodium (Nasalcrom) 1 spray QID NASAL Last administered on 09/30/16 12 :21; Admin Dose 1 SPRAY; Start 09/29/16 at 11:02 Linezolid (Zyvox) 600 mg BID PO Last administered on 09/30/16 08:33; Admin Dose 600 MG; Start 09/29/16 at 21:00 Amikacin Sulfate AMIKACIN PER PHARMACY NOTE XX ; Start 09/29/16 at 15:30 Amikacin Sulfate/ Dextrose (Amikacin/D5W) 102.8 ml @ 102.8 mls/ hr Q24H IVPB Last administered on 09/29/16 17:34; Admin Dose 102.8 MLS/HR; Start 09/29/16 at 17:00 MICHAEL HOROWITZ Sep 30, 2016 12:39
[2016-09-30] MEDS: SOD CHLORIDE 0.9% 1,000 ML IV SCH (13:00)
--- NOTE | 2016-09-30 13:26 | CONS ---
DATE OF ADMISSION: 09/26/2016 DATE OF CONSULTATION: TYPE OF CONSULTATION: Gastroenterology REASON FOR CONSULTATION: Abnormal LFT. REFERRING PHYSICIAN: Bashir Dozier MD and . Thank you for asking me to see your patient who is a 66-year-old female sent from [facility] for leukocytosis and anemia. She has a past history of cancer, type is unknown. The patient complains of abdominal pain confined to the right upper quadrant. Again, her history is not that r eliable. She also has COPD. The patient was seen in the ER, appropriate cultures were done and was started on antibiotic. PAST MEDICAL HISTORY: Wound debridement, G-tube, back surgery. SOCIAL HISTORY: Long-term smoker, does not drink. ALLERGIES: 1. PENICILLIN. 2. ASPIRIN. 3. IBUPROFEN. MEDICATIONS: As per reconciliation list. REVIEW OF SYSTEMS: Pain in the right upper quadrant. No nausea, no vomiting, no fever now. PHYSICAL EXAMINATION: VITAL SIGNS: Stable. CARDIOVASCULAR: No murmur, gallop or click. LUNGS: Clear. ABDOMEN: Soft. She has got G-tube tenderness in the right upper quadrant. EXTREMITIES: No edema, wasting. LABORATORY DATA: WBC is 15.6, hematocrit is 31. Alkaline phosphatase is 169. TSH is within normal limits. Sonogram of the abdomen done which showed gallbladder was absent. The bile duct diameter was 8 mm, upper limit of normal. Liver was also normal. IMPRESSION: 1. Sepsis. The patient is on vancomycin, aztreonam. 2. Anemia. 3. Chronic obstructive pulmonary disease. 4. Multiple decubitus ulcers. 5. Wasting of the muscles. 6. Left lung squamous cell carcinoma 7. Chronic urinary retention 8. Back pain. 9. Abnormal liver function tests with bile duct upper limit of normal diameter which is 8 mm. PLAN: Monitor LFT. If it keeps going up and the patient is symptomatic, then will do MRCP. Otherw ise, continue present care. Dictated By: COTY VALDIVIA/NTS Conf#: [id number] DID#: [id number] CC: COTY KIRK MD;*EndCC*
[2016-09-30] MEDS: AMIKACIN 700 MG in DEXTROSE 5% 100 ML IVPB SCH (17:41)
--- NOTE | 2016-09-30 20:12 | CONS ---
Date/Time of Note Date/Time of Note DATE: 09/30/16 TIME: 20:10 Assessment/Plan Assessment/Plan Chief Complaint/Hosp Course SUBJECTIVE: No acute changes. The patient is lying comfortably in bed. No fevers. No nausea, vomiting, diarrhea, tolerates tube feedings. MICROBIOLOGY: A urine culture growing Proteus mirabilis and Klebsiella pneumoniae, both susceptible to amikacin and Zosyn. Wound culture growing Enterococcus, Klebsiella, extended-spectrum beta-lactamase, Citrobacter. INDWELLINGS: PEG, George. ANTIMICROBIALS The patient is on: 1. Amikacin 2. Topical Bactroban to nares. 3. Zyvox. PHYSICAL EXAMINATION GENERAL: Cachectic, elderly, woman who is in no distress. HEENT: Head atraumatic, normocephalic. Sclerae are anicteric. Buccal mucosa dry. NECK: Supple. CHEST: Rise symmetrical. Breath sounds diminished to bases. HEART: S1, S2. ABDOMEN: Soft, bowel tones present. EXTREMITIES: Without cyanosis, edema. ASSESSMENT 1. Recurrent sepsis. 2. Polymicrobial urinary tract infection. 3. Unstageable sacral decubitus. 4. Methicillin-resistant Staphylococcus aureus nares colonization. 5. Cachexia. 6. Lung cancer. 7. ALLERGY TO PENICILLIN. 8. History of Clostridium difficile colitis. PLAN: The patient remains stable. Continue present care, abx, f/u final wound cultures. Continue local wound care and Bactroban to nares. DW staff Problems: Consultation Date/Type/Reason Admit Date/Time Sep 26, 2016 at 20:07 Initial Consult Date Type of Consultation: ID Exam/Review of Systems Vital Signs Vitals Vital Signs Date Time Temp Pulse Resp B/P Pulse Ox O2 Delivery O2 Flow Rate FiO2 09/30/16 13:52 2.0 09/30/16 08:05 97.7 95 19 96/71 95 09/30/16 08:00 Nasal Cannula Intake and Output 09/29/16 09/29/16 09/30/16 15:00 23:00 07:00 Intake Total 150 ml 462.8 ml 1100 ml Output Total 900 ml 10 ml Balance 150 ml -437.2 ml 1090 ml Results Result Diagram: 09/29/16 0618 09/29/16 0618 Results 24 hrs Laboratory Tests Test 09/30/16 05:30 Total Bilirubin 0.1 L Direct Bilirubin 0.00 Indirect Bilirubin 0.1 Aspartate Amino Transf (AST/SGOT) 25 Alanine Aminotransferase (ALT/SGPT) 18 Alkaline Phosphatase 169 H Total Protein 6.6 Albumin 2.2 L Medications Medications Current Medications Ondansetron HCl (Zofran Inj) 4 mg Q6 PRN IV NAUSEA AND/OR VOMITING; Start 09/26 at 22:30 Acetaminophen (Tylenol Tab) 650 mg Q6H PRN PO PAIN AND OR ELEVATED TEMP Last administered on 09/30/16 15:04; Admin Dose 650 MG; Start 09/26/16 at 23:00 Alprazolam (Xanax) 0.5 mg Q12 PRN PO ANXIETY Last administered on 09/29/16 04: 10; Admin Dose 0.5 MG; Start 09/26/16 at 23:00 Ascorbic Acid (Vitamin C) 500 mg BID PO Last administered on 09/30/16 08:32; Admin Dose 500 MG; Start 09/27/16 at 09:00 Atorvastatin Calcium (Lipitor) 20 mg QHS PO Last administered on 09/29/16 20: 43; Admin Dose 20 MG; Start 09/27/16 at 21:00 Diazepam (Valium) 10 mg DAILY PO Last administered on 09/30/16 08:33; Admin Dose 10 MG; Start 09/27/16 at 09:00 Docusate Sodium (Colace) 100 mg Q12H PRN PO CONSTIPATION; Start 09/26/16 at 23: 00 Duloxetine HCl (Cymbalta) 20 mg DAILY PO Last administered on 09/30/16 08:33; Admin Dose 20 MG; Start 09/27/16 at 09:00 Ferrous Sulfate (Ferrous Sulfate (Ec)) 325 mg BID PO Last administered on 08:32; Admin Dose 325 MG; Start 09/27/16 at 09:00 Gabapentin (Neurontin) 300 mg TID PO Last administered on 09/30/16 12:21; Admin Dose 300 MG; Start 09/27/16 at 09:00 Lactobacillus Acidoph/Bulgaricus (Floranex) 1 tab TID PO Last administered on 12:21; Admin Dose 1 TAB; Start 09/27/16 at 09:00 Losartan Potassium (Cozaar) 50 mg DAILY PO ; Start 09/27/16 at 09:00 Zolpidem Tartrate (Ambien) 5 mg QHS PRN PO INSOMNIA Last administered on 00:27; Admin Dose 5 MG; Start 09/26/16 at 23:00 Morphine Sulfate (Ms Contin (Er)) 60 mg TID PO Last administered on 09/30/16 12:22; Admin Dose 60 MG; Start 09/27/16 at 09:00 Collagenase (Santyl) 1 applic DAILY TOP Last administered on 09/28/16 15:32; Admin Dose 1 APPLIC; Start 09/27/16 at 09:00 Collagenase 1 applic 1 applic PRN PRN TOP SOILED OR DISLODGED DRESSING; Start 09/27/16 at 05:00 Sodium Chloride (NS) 1,000 ml @ 40 mls/hr Q24H IV Last administered on 17:34; Admin Dose 40 MLS/HR; Start 09/27/16 at 13:00 Lansoprazole (Prevacid) 30 mg DAILY@06 GTB Last administered on 09/30/16 05:47 ; Admin Dose 30 MG; Start 09/28/16 at 06:00 Metoprolol Tartrate (Lopressor) 25 mg BID PO Last administered on 09/28/16 15: 31; Admin Dose 25 MG; Start 09/27/16 at 21:00 Mupirocin (Bactroban) 1 applic BID TOP Last administered on 09/30/16 08:33; Admin Dose 1 APPLIC; Start 09/28/16 at 21:00 Cromolyn Sodium (Nasalcrom) 1 spray QID NASAL Last administered on 09/30/16 17 :41; Admin Dose 1 SPRAY; Start 09/29/16 at 11:02 Linezolid (Zyvox) 600 mg BID PO Last administered on 09/30/16 08:33; Admin Dose 600 MG; Start 09/29/16 at 21:00 Amikacin Sulfate AMIKACIN PER PHARMACY NOTE XX ; Start 09/29/16 at 15:30 Amikacin Sulfate/ Dextrose (Amikacin/D5W) 102.8 ml @ 102.8 mls/ hr Q24H IVPB Last administered on 09/30/16 17:41; Admin Dose 102.8 MLS/HR; Start 09/29/16 at 17:00 RUBIN MAYEN NP Sep 30, 2016 20:12
[2016-09-30 22:13] VITALS: BP 121/75; RESP 17
[2016-09-30] MEDS: ATORVASTATIN 20 MG TAB PO SCH (22:16)
[2016-10-01] MEDS: SOD CHLORIDE 0.9% 1,000 ML IV SCH (00:08)
[2016-10-01] MEDS: ACETAMINOPHEN 325 MG TAB PO PRN (05:54)
[2016-10-01] MEDS: LANSOPRAZOLE 30 MG CAP GTB SCH (05:54)
[2016-10-01] MEDS: LEVOTHYROXINE 125 MCG TAB PO SCH (06:00)
[2016-10-01 08:12] VITALS: BP 108/72; RESP 21
[2016-10-01] MEDS: morphine (ER) 30 MG TAB PO SCH ×3 (08:38→18:11)
[2016-10-01] MEDS: GABAPENTIN 300 MG CAP PO SCH ×3 (08:38→22:02)
[2016-10-01] MEDS: DULOXETINE 20 MG CAP DR PO SCH (08:38)
[2016-10-01] MEDS: FERROUS SULFATE (EC) 325 MG TAB PO SCH ×2 (08:39→22:01)
[2016-10-01] MEDS: ASCORBIC ACID 500 MG TAB PO SCH ×2 (08:39→22:02)
[2016-10-01] MEDS: LACTOBACILLUS CHEW TAB PO SCH ×3 (08:39→22:01)
[2016-10-01] MEDS: ZYVOX 600 MG TAB PO SCH ×2 (08:39→22:01)
[2016-10-01] MEDS: DIAZEPAM 5 MG TAB PO SCH (08:39)
[2016-10-01] MEDS: LOSARTAN 50 MG TAB PO SCH (08:40)
[2016-10-01] MEDS: METOPROLOL 50 MG TAB PO SCH ×2 (08:41→22:03)
[2016-10-01] MEDS: MUPIROCIN 2% 22 GM OINT TOP SCH ×2 (08:52→22:04)
[2016-10-01] MEDS: COLLAGENASE 30 GM TUBE TOP SCH (08:52)
[2016-10-01] MEDS: CROMOLYN 4% 26ML NAS INH NASAL SCH ×4 (08:52→22:04)
--- NOTE | 2016-10-01 12:00 | PN ---
Date/Time of Note Date/Time of Note DATE: 10/01/16 TIME: 12:00 Assessment/Plan VTE Prophylaxis VTE Prophylaxis Intervention: SCD's Lines/Catheters IV Catheter Type (from Nrs): Peripheral IV Urinary Cath still in place: Yes Reason Cath still needed: urinary retention Assessment/Plan Chief Complaint/Hosp Course Patient is a 66-year-old female with anemia and cancer presents for anemia and leukocytosis. The patient was sent by Dr. Dozier from [facility] for admission. The patient said that she was "not feeling well all weekend". She was brought in by ambulance. She said that she had a fever but did not check her temperature. She has had cough and urinary symptoms as well as sore throat. The patient had peristent hypotension but no sycnope and remains stabe with no chest pain and no overt CHF Problems: Assessment/Plan 1. Sepsis with leukocytosis 2. Anemia of chronic disease 3. Chronic obstructive pulmonary disease. 4. Multiple decubitus ulcers with history of debridement. 5. Chronic urinary retention. 6. Left lung squamous cell carcinoma. 7. Hx of Congestive heart failure. 8.C/O Back pain sec to sacral wound 9. Hypotension -Remains asymptomatic but if further drop in bp will stop metoprolol > continue as hx of diastolic CHF with an EF of 55% -s/p G-Tube revision -on antibiotics -GI care Subjective 24 Hr Interval Summary Free Text/Dictation the [id number] with no cahnge Exam/Review of Systems Vital Signs Vitals Vital Signs Date Time Temp Pulse Resp B/P Pulse Ox O2 Delivery O2 Flow Rate FiO2 10/01/16 11:28 2.0 10/01/16 08:12 98.4 90 21 108/72 98 09/30/16 20:00 Nasal Cannula Intake and Output 09/30/16 09/30/16 10/01/16 15:00 23:00 07:00 Intake Total 1162.8 ml 1300 ml Output Total 500 ml Balance 662.8 ml 1300 ml Results Result Diagram: 09/29/1661709/29/16617 Medications Medications Current Medications Ondansetron HCl (Zofran Inj) 4 mg Q6 PRN IV NAUSEA AND/OR VOMITING; Start 09/26 at 22:30 Acetaminophen (Tylenol Tab) 650 mg Q6H PRN PO PAIN AND OR ELEVATED TEMP Last administered on 10/01/16 05:54; Admin Dose 650 MG; Start 09/26/16 at 23:00 Alprazolam (Xanax) 0.5 mg Q12 PRN PO ANXIETY Last administered on 09/29/16 04: 10; Admin Dose 0.5 MG; Start 09/26/16 at 23:00 Ascorbic Acid (Vitamin C) 500 mg BID PO Last administered on 10/01/16 08:39; Admin Dose 500 MG; Start 09/27/16 at 09:00 Atorvastatin Calcium (Lipitor) 20 mg QHS PO Last administered on 09/30/16 22: 16; Admin Dose 20 MG; Start 09/27/16 at 21:00 Diazepam (Valium) 10 mg DAILY PO Last administered on 10/01/16 08:39; Admin Dose 10 MG; Start 09/27/16 at 09:00 Docusate Sodium (Colace) 100 mg Q12H PRN PO CONSTIPATION; Start 09/26/16 at 23: 00 Duloxetine HCl (Cymbalta) 20 mg DAILY PO Last administered on 10/01/16 08:38; Admin Dose 20 MG; Start 09/27/16 at 09:00 Ferrous Sulfate (Ferrous Sulfate (Ec)) 325 mg BID PO Last administered on 08:39; Admin Dose 325 MG; Start 09/27/16 at 09:00 Gabapentin (Neurontin) 300 mg TID PO Last administered on 10/01/16 08:38; Admin Dose 300 MG; Start 09/27/16 at 09:00 Lactobacillus Acidoph/Bulgaricus (Floranex) 1 tab TID PO Last administered on 08:39; Admin Dose 1 TAB; Start 09/27/16 at 09:00 Losartan Potassium (Cozaar) 50 mg DAILY PO Last administered on 10/01/16 08:40 ; Admin Dose 50 MG; Start 09/27/16 at 09:00 Zolpidem Tartrate (Ambien) 5 mg QHS PRN PO INSOMNIA Last administered on 00:27; Admin Dose 5 MG; Start 09/26/16 at 23:00 Morphine Sulfate (Ms Contin (Er)) 60 mg TID PO Last administered on 10/01/16 08:38; Admin Dose 60 MG; Start 09/27/16 at 09:00 Collagenase (Santyl) 1 applic DAILY TOP Last administered on 10/01/16 08:52; Admin Dose 1 APPLIC; Start 09/27/16 at 09:00 Collagenase 1 applic 1 applic PRN PRN TOP SOILED OR DISLODGED DRESSING; Start 09/27/16 at 05:00 Sodium Chloride (NS) 1,000 ml @ 40 mls/hr Q24H IV Last administered on 00:08; Admin Dose 40 MLS/HR; Start 09/27/16 at 13:00 Lansoprazole (Prevacid) 30 mg DAILY@06 GTB Last administered on 10/01/16 05:54 ; Admin Dose 30 MG; Start 09/28/16 at 06:00 Metoprolol Tartrate (Lopressor) 25 mg BID PO Last administered on 10/01/16 08: 41; Admin Dose 25 MG; Start 09/27/16 at 21:00 Mupirocin (Bactroban) 1 applic BID TOP Last administered on 10/01/16 08:52; Admin Dose 1 APPLIC; Start 09/28/16 at 21:00 Cromolyn Sodium (Nasalcrom) 1 spray QID NASAL Last administered on 10/01/16 08 :52; Admin Dose 1 SPRAY; Start 09/29/16 at 11:02 Linezolid (Zyvox) 600 mg BID PO Last administered on 10/01/16 08:39; Admin Dose 600 MG; Start 09/29/16 at 21:00 Amikacin Sulfate AMIKACIN PER PHARMACY NOTE XX ; Start 09/29/16 at 15:30 Amikacin Sulfate/ Dextrose (Amikacin/D5W) 102.8 ml @ 102.8 mls/ hr Q24H IVPB Last administered on 09/30/16 17:41; Admin Dose 102.8 MLS/HR; Start 09/29/16 at 17:00 RALPH ULCAS MD Oct 01, 2016 12:00
--- NOTE | 2016-10-01 13:19 | PN ---
Date/Time of Note Date/Time of Note DATE: 10/01/16 TIME: 13:19 Assessment/Plan VTE Prophylaxis VTE Prophylaxis Intervention: other Lines/Catheters IV Catheter Type (from Nrs): Peripheral IV Urinary Cath still in place: Yes Reason Cath still needed: skin wounds contaminated by urine Assessment/Plan Chief Complaint/Hosp Course 1. Severe sepsis with leukocytosis. Will obtain urine and blood cultures. - Vanco - Aztreonam - blood c/s -urine c/s 2. Anemia of chronic disease - transfuse 2 units Packed Red Blood Cells 3. Chronic obstructive pulmonary disease. 4. Multiple decubitus ulcers with history of debridement. 5. Chronic urinary retention. 6. Left lung squamous cell carcinoma. 7. Congestive heart failure. 8.C/O Back pain sec to sacral wound - morphine IVP 8. Pepcid for peptic ulcer disease prophylaxis 9.Sequential compression device for deep venous thrombosis prophylaxis. Problems: Subjective 24 Hr Interval Summary Free Text/Dictation Patient complain of pain Exam/Review of Systems Vital Signs Vitals Vital Signs Date Time Temp Pulse Resp B/P Pulse Ox O2 Delivery O2 Flow Rate FiO2 10/01/16 11:28 2.0 10/01/16 08:12 98.4 90 21 108/72 98 09/30/16 20:00 Nasal Cannula Intake and Output 09/30/16 09/30/16 10/01/16 15:00 23:00 07:00 Intake Total 1162.8 ml 1300 ml Output Total 500 ml Balance 662.8 ml 1300 ml Exam Constitutional: well developed Head: atraumatic, normocephalic Neck: supple Respiratory: diminished breath sounds Cardiovascular: regular rate and rhythm Gastrointestinal: non-tender, soft Extremities: normal pulses Results Result Diagram: 09/29/1661709/29/16617 Medications Medications Current Medications Ondansetron HCl (Zofran Inj) 4 mg Q6 PRN IV NAUSEA AND/OR VOMITING; Start 09/26 at 22:30 Acetaminophen (Tylenol Tab) 650 mg Q6H PRN PO PAIN AND OR ELEVATED TEMP Last administered on 10/01/16 05:54; Admin Dose 650 MG; Start 09/26/16 at 23:00 Alprazolam (Xanax) 0.5 mg Q12 PRN PO ANXIETY Last administered on 09/29/16 04: 10; Admin Dose 0.5 MG; Start 09/26/16 at 23:00 Ascorbic Acid (Vitamin C) 500 mg BID PO Last administered on 10/01/16 08:39; Admin Dose 500 MG; Start 09/27/16 at 09:00 Atorvastatin Calcium (Lipitor) 20 mg QHS PO Last administered on 09/30/16 22: 16; Admin Dose 20 MG; Start 09/27/16 at 21:00 Diazepam (Valium) 10 mg DAILY PO Last administered on 10/01/16 08:39; Admin Dose 10 MG; Start 09/27/16 at 09:00 Docusate Sodium (Colace) 100 mg Q12H PRN PO CONSTIPATION; Start 09/26/16 at 23: 00 Duloxetine HCl (Cymbalta) 20 mg DAILY PO Last administered on 10/01/16 08:38; Admin Dose 20 MG; Start 09/27/16 at 09:00 Ferrous Sulfate (Ferrous Sulfate (Ec)) 325 mg BID PO Last administered on 08:39; Admin Dose 325 MG; Start 09/27/16 at 09:00 Gabapentin (Neurontin) 300 mg TID PO Last administered on 10/01/16 12:34; Admin Dose 300 MG; Start 09/27/16 at 09:00 Lactobacillus Acidoph/Bulgaricus (Floranex) 1 tab TID PO Last administered on 12:34; Admin Dose 1 TAB; Start 09/27/16 at 09:00 Losartan Potassium (Cozaar) 50 mg DAILY PO Last administered on 10/01/16 08:40 ; Admin Dose 50 MG; Start 09/27/16 at 09:00 Zolpidem Tartrate (Ambien) 5 mg QHS PRN PO INSOMNIA Last administered on 00:27; Admin Dose 5 MG; Start 09/26/16 at 23:00 Morphine Sulfate (Ms Contin (Er)) 60 mg TID PO Last administered on 10/01/16 12:34; Admin Dose 60 MG; Start 09/27/16 at 09:00 Collagenase (Santyl) 1 applic DAILY TOP Last administered on 10/01/16 08:52; Admin Dose 1 APPLIC; Start 09/27/16 at 09:00 Collagenase 1 applic 1 applic PRN PRN TOP SOILED OR DISLODGED DRESSING; Start 09/27/16 at 05:00 Sodium Chloride (NS) 1,000 ml @ 40 mls/hr Q24H IV Last administered on 00:08; Admin Dose 40 MLS/HR; Start 09/27/16 at 13:00 Lansoprazole (Prevacid) 30 mg DAILY@06 GTB Last administered on 10/01/16 05:54 ; Admin Dose 30 MG; Start 09/28/16 at 06:00 Metoprolol Tartrate (Lopressor) 25 mg BID PO Last administered on 10/01/16 08: 41; Admin Dose 25 MG; Start 09/27/16 at 21:00 Mupirocin (Bactroban) 1 applic BID TOP Last administered on 10/01/16 08:52; Admin Dose 1 APPLIC; Start 09/28/16 at 21:00 Cromolyn Sodium (Nasalcrom) 1 spray QID NASAL Last administered on 10/01/16 12 :38; Admin Dose 1 SPRAY; Start 09/29/16 at 11:02 Linezolid (Zyvox) 600 mg BID PO Last administered on 10/01/16 08:39; Admin Dose 600 MG; Start 09/29/16 at 21:00 Amikacin Sulfate AMIKACIN PER PHARMACY NOTE XX ; Start 09/29/16 at 15:30 Amikacin Sulfate/ Dextrose (Amikacin/D5W) 102.8 ml @ 102.8 mls/ hr Q24H IVPB Last administered on 09/30/16 17:41; Admin Dose 102.8 MLS/HR; Start 09/29/16 at 17:00 MICHAEL HOROWITZ Oct 01, 2016 13:19
[2016-10-01] MEDS: AMIKACIN 700 MG in DEXTROSE 5% 100 ML IVPB SCH (18:10)
--- NOTE | 2016-10-01 19:36 | CONS ---
Date/Time of Note Date/Time of Note DATE: 10/01/16 TIME: 19:35 Assessment/Plan Assessment/Plan Additional Assessment/Plan IMPRESSION: 1. Sepsis. The patient is on vancomycin, aztreonam. 2. Anemia. 3. Chronic obstructive pulmonary disease. 4. Multiple decubitus ulcers. 5. Wasting of the muscles. 6. Left lung squamous cell carcinoma 7. Chronic urinary retention 8. Back pain. 9. Abnormal liver function tests with bile duct upper limit of normal diameter which is 8 mm. Alkaline phosphatase trending down PLAN: Monitor LFT. If it keeps going up and the patient is symptomatic, then will do MRCP. Otherwise, continue present care. Stool for occult blood Consultation Date/Type/Reason Admit Date/Time Sep 26, 2016 at 20:07 Initial Consult Date Type of Consultation: ID 24 HR Interval Summary Free Text/Dictation Generalized body aches Exam/Review of Systems Vital Signs Vitals Vital Signs Date Time Temp Pulse Resp B/P Pulse Ox O2 Delivery O2 Flow Rate FiO2 10/01/16 14:27 Nasal Cannula 2.0 10/01/16 08:12 98.4 90 21 108/72 98 Intake and Output 09/30/16 09/30/16 10/01/16 15:00 23:00 07:00 Intake Total 1162.8 ml 1300 ml Output Total 500 ml Balance 662.8 ml 1300 ml Exam Constitutional: alert, oriented, well developed Psych: nl mood/affect, no complaints Head: atraumatic, normocephalic Eyes: EOMI, PERRL, nl conjunctiva, nl lids, nl sclera ENMT: nl external ears & nose, nl lips & teeth, nl nasal mucosa & septum Neck: non-tender, supple Respiratory: clear to auscultation, normal air movement Cardiovascular: nl pulses, regular rate and rhythm Gastrointestinal: nl liver, spleen, non-tender, soft Musculoskeletal: nl extremities to inspection, nl gait and stance Extremities: normal pulses Neurological: [employer] II-XII intact, nl mental status, nl speech, nl strength Skin: nl turgor, No rash or lesions Lymph: nl lymph nodes Results Result Diagram: 09/29/1661709/29/16617 Medications Medications Current Medications Ondansetron HCl (Zofran Inj) 4 mg Q6 PRN IV NAUSEA AND/OR VOMITING; Start 09/26 at 22:30 Acetaminophen (Tylenol Tab) 650 mg Q6H PRN PO PAIN AND OR ELEVATED TEMP Last administered on 10/01/16 05:54; Admin Dose 650 MG; Start 09/26/16 at 23:00 Alprazolam (Xanax) 0.5 mg Q12 PRN PO ANXIETY Last administered on 09/29/16 04: 10; Admin Dose 0.5 MG; Start 09/26/16 at 23:00 Ascorbic Acid (Vitamin C) 500 mg BID PO Last administered on 10/01/16 08:39; Admin Dose 500 MG; Start 09/27/16 at 09:00 Atorvastatin Calcium (Lipitor) 20 mg QHS PO Last administered on 09/30/16 22: 16; Admin Dose 20 MG; Start 09/27/16 at 21:00 Diazepam (Valium) 10 mg DAILY PO Last administered on 10/01/16 08:39; Admin Dose 10 MG; Start 09/27/16 at 09:00 Docusate Sodium (Colace) 100 mg Q12H PRN PO CONSTIPATION; Start 09/26/16 at 23: 00 Duloxetine HCl (Cymbalta) 20 mg DAILY PO Last administered on 10/01/16 08:38; Admin Dose 20 MG; Start 09/27/16 at 09:00 Ferrous Sulfate (Ferrous Sulfate (Ec)) 325 mg BID PO Last administered on 08:39; Admin Dose 325 MG; Start 09/27/16 at 09:00 Gabapentin (Neurontin) 300 mg TID PO Last administered on 10/01/16 12:34; Admin Dose 300 MG; Start 09/27/16 at 09:00 Lactobacillus Acidoph/Bulgaricus (Floranex) 1 tab TID PO Last administered on 12:34; Admin Dose 1 TAB; Start 09/27/16 at 09:00 Losartan Potassium (Cozaar) 50 mg DAILY PO Last administered on 10/01/16 08:40 ; Admin Dose 50 MG; Start 09/27/16 at 09:00 Zolpidem Tartrate (Ambien) 5 mg QHS PRN PO INSOMNIA Last administered on 00:27; Admin Dose 5 MG; Start 09/26/16 at 23:00 Collagenase (Santyl) 1 applic DAILY TOP Last administered on 10/01/16 08:52; Admin Dose 1 APPLIC; Start 09/27/16 at 09:00 Collagenase 1 applic 1 applic PRN PRN TOP SOILED OR DISLODGED DRESSING; Start 09/27/16 at 05:00 Sodium Chloride (NS) 1,000 ml @ 40 mls/hr Q24H IV Last administered on 00:08; Admin Dose 40 MLS/HR; Start 09/27/16 at 13:00 Lansoprazole (Prevacid) 30 mg DAILY@06 GTB Last administered on 10/01/16 05:54 ; Admin Dose 30 MG; Start 09/28/16 at 06:00 Metoprolol Tartrate (Lopressor) 25 mg BID PO Last administered on 10/01/16 08: 41; Admin Dose 25 MG; Start 09/27/16 at 21:00 Mupirocin (Bactroban) 1 applic BID TOP Last administered on 10/01/16 08:52; Admin Dose 1 APPLIC; Start 09/28/16 at 21:00 Cromolyn Sodium (Nasalcrom) 1 spray QID NASAL Last administered on 10/01/16 18 :17; Admin Dose 1 SPRAY; Start 09/29/16 at 11:02 Linezolid (Zyvox) 600 mg BID PO Last administered on 10/01/16 08:39; Admin Dose 600 MG; Start 09/29/16 at 21:00 Amikacin Sulfate AMIKACIN PER PHARMACY NOTE XX ; Start 09/29/16 at 15:30 Amikacin Sulfate/ Dextrose (Amikacin/D5W) 102.8 ml @ 102.8 mls/ hr Q24H IVPB Last administered on 10/01/16 18:10; Admin Dose 102.8 MLS/HR; Start 09/29/16 at 17:00 Morphine Sulfate (Ms Contin (Er)) 60 mg Q6 PO Last administered on 10/01/16 18 :11; Admin Dose 60 MG; Start 10/01/16 at 18:00 Miscellaneous Information (*Rx Drug Level Order Reminder*) AMIKACIN TROUGH AT 1... ONCE ONCE XX ; Start 10/02/16 at 16:00; Stop 10/02/16 at 16:01 Phenol (Cepastat Lozenge) 1 lozenge Q2H PRN MT SORE THROAT; Start 10/01/16 at 19:00 COTY KIRK MD Oct 01, 2016 19:36
--- NOTE | 2016-10-01 20:26 | CONS ---
Date/Time of Note Date/Time of Note DATE: 10/01/16 TIME: 20:24 Assessment/Plan Assessment/Plan Chief Complaint/Hosp Course SUBJECTIVE: No acute changes. Awake, lying comfortably in bed. No fevers. No nausea, vomiting, diarrhea, tolerates tube feedings. MICROBIOLOGY: A urine culture growing Proteus mirabilis and Klebsiella pneumoniae, both susceptible to amikacin and Zosyn. Wound culture growing Enterococcus, Klebsiella, extended-spectrum beta-lactamase, Citrobacter. INDWELLINGS: PEG, George. ANTIMICROBIALS: 1. Amikacin 2. Topical Bactroban to nares. 3. Zyvox. PHYSICAL EXAMINATION GENERAL: Cachectic, elderly, woman who is in no distress. HEENT: Head atraumatic, normocephalic. Sclerae are anicteric. Buccal mucosa dry. NECK: Supple. CHEST: Rise symmetrical. Breath sounds diminished to bases. HEART: S1, S2. ABDOMEN: Soft, bowel tones present. EXTREMITIES: Without cyanosis, edema. ASSESSMENT 1. Recurrent sepsis. 2. Polymicrobial urinary tract infection. 3. Unstageable sacral decubitus. 4. Methicillin-resistant Staphylococcus aureus nares colonization. 5. Cachexia. 6. Lung cancer. 7. ALLERGY TO PENICILLIN. 8. History of Clostridium difficile colitis. 9. Abnormal LFT PLAN: Clinically unchanged. Continue present care, local wound care, abx and Bactroban to nares. May need MRCP per GI note [facility] staff Problems: Consultation Date/Type/Reason Admit Date/Time Sep 26, 2016 at 20:07 Type of Consultation: ID Exam/Review of Systems Vital Signs Vitals Vital Signs Date Time Temp Pulse Resp B/P Pulse Ox O2 Delivery O2 Flow Rate FiO2 10/01/16 14:27 Nasal Cannula 2.0 10/01/16 08:12 98.4 90 21 108/72 98 Intake and Output 09/30/16 09/30/16 10/01/16 15:00 23:00 07:00 Intake Total 1162.8 ml 1300 ml Output Total 500 ml Balance 662.8 ml 1300 ml Results Result Diagram: 09/29/1661709/29/16617 Medications Medications Current Medications Ondansetron HCl (Zofran Inj) 4 mg Q6 PRN IV NAUSEA AND/OR VOMITING; Start 09/26 at 22:30 Acetaminophen (Tylenol Tab) 650 mg Q6H PRN PO PAIN AND OR ELEVATED TEMP Last administered on 10/01/16 05:54; Admin Dose 650 MG; Start 09/26/16 at 23:00 Alprazolam (Xanax) 0.5 mg Q12 PRN PO ANXIETY Last administered on 09/29/16 04: 10; Admin Dose 0.5 MG; Start 09/26/16 at 23:00 Ascorbic Acid (Vitamin C) 500 mg BID PO Last administered on 10/01/16 08:39; Admin Dose 500 MG; Start 09/27/16 at 09:00 Atorvastatin Calcium (Lipitor) 20 mg QHS PO Last administered on 09/30/16 22: 16; Admin Dose 20 MG; Start 09/27/16 at 21:00 Diazepam (Valium) 10 mg DAILY PO Last administered on 10/01/16 08:39; Admin Dose 10 MG; Start 09/27/16 at 09:00 Docusate Sodium (Colace) 100 mg Q12H PRN PO CONSTIPATION; Start 09/26/16 at 23: 00 Duloxetine HCl (Cymbalta) 20 mg DAILY PO Last administered on 10/01/16 08:38; Admin Dose 20 MG; Start 09/27/16 at 09:00 Ferrous Sulfate (Ferrous Sulfate (Ec)) 325 mg BID PO Last administered on 08:39; Admin Dose 325 MG; Start 09/27/16 at 09:00 Gabapentin (Neurontin) 300 mg TID PO Last administered on 10/01/16 12:34; Admin Dose 300 MG; Start 09/27/16 at 09:00 Lactobacillus Acidoph/Bulgaricus (Floranex) 1 tab TID PO Last administered on 12:34; Admin Dose 1 TAB; Start 09/27/16 at 09:00 Losartan Potassium (Cozaar) 50 mg DAILY PO Last administered on 10/01/16 08:40 ; Admin Dose 50 MG; Start 09/27/16 at 09:00 Zolpidem Tartrate (Ambien) 5 mg QHS PRN PO INSOMNIA Last administered on 00:27; Admin Dose 5 MG; Start 09/26/16 at 23:00 Collagenase (Santyl) 1 applic DAILY TOP Last administered on 10/01/16 08:52; Admin Dose 1 APPLIC; Start 09/27/16 at 09:00 Collagenase 1 applic 1 applic PRN PRN TOP SOILED OR DISLODGED DRESSING; Start 09/27/16 at 05:00 Sodium Chloride (NS) 1,000 ml @ 40 mls/hr Q24H IV Last administered on 00:08; Admin Dose 40 MLS/HR; Start 09/27/16 at 13:00 Lansoprazole (Prevacid) 30 mg DAILY@06 GTB Last administered on 10/01/16 05:54 ; Admin Dose 30 MG; Start 09/28/16 at 06:00 Metoprolol Tartrate (Lopressor) 25 mg BID PO Last administered on 10/01/16 08: 41; Admin Dose 25 MG; Start 09/27/16 at 21:00 Mupirocin (Bactroban) 1 applic BID TOP Last administered on 10/01/16 08:52; Admin Dose 1 APPLIC; Start 09/28/16 at 21:00 Cromolyn Sodium (Nasalcrom) 1 spray QID NASAL Last administered on 10/01/16 18 :17; Admin Dose 1 SPRAY; Start 09/29/16 at 11:02 Linezolid (Zyvox) 600 mg BID PO Last administered on 10/01/16 08:39; Admin Dose 600 MG; Start 09/29/16 at 21:00 Amikacin Sulfate AMIKACIN PER PHARMACY NOTE XX ; Start 09/29/16 at 15:30 Amikacin Sulfate/ Dextrose (Amikacin/D5W) 102.8 ml @ 102.8 mls/ hr Q24H IVPB Last administered on 10/01/16 18:10; Admin Dose 102.8 MLS/HR; Start 09/29/16 at 17:00 Morphine Sulfate (Ms Contin (Er)) 60 mg Q6 PO Last administered on 10/01/16 18 :11; Admin Dose 60 MG; Start 10/01/16 at 18:00 Miscellaneous Information (*Rx Drug Level Order Reminder*) AMIKACIN TROUGH AT 1... ONCE ONCE XX ; Start 10/02/16 at 16:00; Stop 10/02/16 at 16:01 Phenol (Cepastat Lozenge) 1 lozenge Q2H PRN MT SORE THROAT; Start 10/01/16 at 19:00 RUBIN MAYEN NP Oct 01, 2016 20:26
[2016-10-01] MEDS ORDERED: LIDOCAINE 1% (MPF) 5 ML VIAL SC ONE (22:00)
[2016-10-01] MEDS: ATORVASTATIN 20 MG TAB PO SCH (22:01)
[2016-10-01] MEDS: ZOLPIDEM 5 MG TAB PO PRN (22:10)
[2016-10-02] MEDS: morphine (ER) 30 MG TAB PO SCH ×5 (00:21→23:55)
[2016-10-02] MEDS: ACETAMINOPHEN 325 MG TAB PO PRN ×2 (03:15→21:09)
[2016-10-02] MEDS: LEVOTHYROXINE 125 MCG TAB PO SCH (05:35)
[2016-10-02] MEDS: LANSOPRAZOLE 30 MG CAP GTB SCH (05:35)
[2016-10-02 07:02] LABS: CREATININE 0.32 mg/dl (0.44-1.00)
[2016-10-02 07:25] VITALS: BP 100/57; RESP 18
[2016-10-02] MEDS: LOSARTAN 50 MG TAB PO SCH (09:00)
[2016-10-02] MEDS: METOPROLOL 50 MG TAB PO SCH ×2 (09:00→21:08)
[2016-10-02] MEDS: FERROUS SULFATE (EC) 325 MG TAB PO SCH ×2 (09:27→21:08)
[2016-10-02] MEDS: ZYVOX 600 MG TAB PO SCH ×2 (09:27→21:09)
[2016-10-02] MEDS: DIAZEPAM 5 MG TAB PO SCH (09:27)
[2016-10-02] MEDS: LACTOBACILLUS CHEW TAB PO SCH ×3 (09:27→21:08)
[2016-10-02] MEDS: ASCORBIC ACID 500 MG TAB PO SCH ×2 (09:27→21:08)
[2016-10-02] MEDS: GABAPENTIN 300 MG CAP PO SCH ×3 (09:29→21:08)
[2016-10-02] MEDS: DULOXETINE 20 MG CAP DR PO SCH (09:36)
[2016-10-02] MEDS: CROMOLYN 4% 26ML NAS INH NASAL SCH ×4 (09:46→21:09)
[2016-10-02] MEDS: MUPIROCIN 2% 22 GM OINT TOP SCH ×2 (09:46→21:09)
[2016-10-02] MEDS: COLLAGENASE 30 GM TUBE TOP SCH (09:47)
[2016-10-02] MEDS: SOD CHLORIDE 0.9% 1,000 ML IV SCH (12:47)
[2016-10-02] MEDS: CEPASTAT LOZENGE MT PRN (12:48)
[2016-10-02] MEDS ORDERED: LIDOCAINE 1% (MPF) 5 ML VIAL SC ONE (15:30)
--- NOTE | 2016-10-02 15:47 | CONS ---
Date/Time of Note Date/Time of Note DATE: 10/02/16 TIME: 15:45 Assessment/Plan Assessment/Plan Chief Complaint/Hosp Course SUBJECTIVE: No acute changes. Awake, lying comfortably in bed. No fevers. No nausea, vomiting, diarrhea, tolerates tube feedings. MICROBIOLOGY: A urine culture growing Proteus mirabilis and Klebsiella pneumoniae, both susceptible to amikacin and Zosyn. Wound culture growing Enterococcus, Klebsiella, extended-spectrum beta-lactamase, Citrobacter. INDWELLINGS: PEG, George. ANTIMICROBIALS: 1. Amikacin 2. Topical Bactroban to nares. 3. Zyvox. PHYSICAL EXAMINATION GENERAL: Cachectic, elderly, woman who is in no distress. HEENT: Head atraumatic, normocephalic. Sclerae are anicteric. Buccal mucosa dry. NECK: Supple. CHEST: Rise symmetrical. Breath sounds diminished to bases. HEART: S1, S2. ABDOMEN: Soft, bowel tones present. EXTREMITIES: Without cyanosis, edema. ASSESSMENT 1. Recurrent sepsis. 2. Polymicrobial urinary tract infection. 3. Unstageable sacral decubitus. 4. Methicillin-resistant Staphylococcus aureus nares colonization. 5. Cachexia. 6. Lung cancer. 7. ALLERGY TO PENICILLIN. 8. History of Clostridium difficile colitis. 9. Abnormal LFT PLAN: Clinically unchanged. Continue present care, local wound care, abx and Bactroban to nares. May need MRCP per GI note [facility] staff Problems: Consultation Date/Type/Reason Admit Date/Time Sep 26, 2016 at 20:07 Type of Consultation: ID Exam/Review of Systems Vital Signs Vitals Vital Signs Date Time Temp Pulse Resp B/P Pulse Ox O2 Delivery O2 Flow Rate FiO2 10/02/16 13:38 2.0 10/02/16 07:25 98.2 93 18 100/57 92 10/01/16 21:30 Nasal Cannula Intake and Output 10/01/16 10/01/16 10/02/16 15:00 23:00 07:00 Intake Total 1682.8 ml Output Total 900 ml Balance 782.8 ml Results Result Diagram: 09/29/16 0618 10/02/16 0532 Results 24 hrs Laboratory Tests Test 10/01/16 20:05 10/02/16 05:32 10/02/16 10:29 Stool Occult Blood NEGATIVE Blood Urea Nitrogen 12 Creatinine 0.32 L Lab Scanned Report REFERENCE LAB Medications Medications Current Medications Ondansetron HCl (Zofran Inj) 4 mg Q6 PRN IV NAUSEA AND/OR VOMITING; Start 09/26 at 22:30 Acetaminophen (Tylenol Tab) 650 mg Q6H PRN PO PAIN AND OR ELEVATED TEMP Last administered on 10/02/16 03:15; Admin Dose 650 MG; Start 09/26/16 at 23:00 Alprazolam (Xanax) 0.5 mg Q12 PRN PO ANXIETY Last administered on 09/29/16 04: 10; Admin Dose 0.5 MG; Start 09/26/16 at 23:00 Ascorbic Acid (Vitamin C) 500 mg BID PO Last administered on 10/02/16 09:27; Admin Dose 500 MG; Start 09/27/16 at 09:00 Atorvastatin Calcium (Lipitor) 20 mg QHS PO Last administered on 10/01/16 22: 01; Admin Dose 20 MG; Start 09/27/16 at 21:00 Diazepam (Valium) 10 mg DAILY PO Last administered on 10/02/16 09:27; Admin Dose 10 MG; Start 09/27/16 at 09:00 Docusate Sodium (Colace) 100 mg Q12H PRN PO CONSTIPATION; Start 09/26/16 at 23: 00 Duloxetine HCl (Cymbalta) 20 mg DAILY PO Last administered on 10/02/16 09:36; Admin Dose 20 MG; Start 09/27/16 at 09:00 Ferrous Sulfate (Ferrous Sulfate (Ec)) 325 mg BID PO Last administered on 09:27; Admin Dose 325 MG; Start 09/27/16 at 09:00 Gabapentin (Neurontin) 300 mg TID PO Last administered on 10/02/16 12:47; Admin Dose 300 MG; Start 09/27/16 at 09:00 Lactobacillus Acidoph/Bulgaricus (Floranex) 1 tab TID PO Last administered on 12:47; Admin Dose 1 TAB; Start 09/27/16 at 09:00 Losartan Potassium (Cozaar) 50 mg DAILY PO Last administered on 10/01/16 08:40 ; Admin Dose 50 MG; Start 09/27/16 at 09:00 Zolpidem Tartrate (Ambien) 5 mg QHS PRN PO INSOMNIA Last administered on 22:10; Admin Dose 5 MG; Start 09/26/16 at 23:00 Collagenase (Santyl) 1 applic DAILY TOP Last administered on 10/02/16 09:47; Admin Dose 1 APPLIC; Start 09/27/16 at 09:00 Collagenase 1 applic 1 applic PRN PRN TOP SOILED OR DISLODGED DRESSING; Start 09/27/16 at 05:00 Sodium Chloride (NS) 1,000 ml @ 40 mls/hr Q24H IV Last administered on 12:47; Admin Dose 40 MLS/HR; Start 09/27/16 at 13:00 Lansoprazole (Prevacid) 30 mg DAILY@06 GTB Last administered on 10/02/16 05:35 ; Admin Dose 30 MG; Start 09/28/16 at 06:00 Metoprolol Tartrate (Lopressor) 25 mg BID PO Last administered on 10/01/16 22: 03; Admin Dose 25 MG; Start 09/27/16 at 21:00 Mupirocin (Bactroban) 1 applic BID TOP Last administered on 10/02/16 09:46; Admin Dose 1 APPLIC; Start 09/28/16 at 21:00 Cromolyn Sodium (Nasalcrom) 1 spray QID NASAL Last administered on 10/02/16 12 :51; Admin Dose 1 SPRAY; Start 09/29/16 at 11:02 Linezolid (Zyvox) 600 mg BID PO Last administered on 10/02/16 09:27; Admin Dose 600 MG; Start 09/29/16 at 21:00 Amikacin Sulfate AMIKACIN PER PHARMACY NOTE XX ; Start 09/29/16 at 15:30 Amikacin Sulfate/ Dextrose (Amikacin/D5W) 102.8 ml @ 102.8 mls/ hr Q24H IVPB Last administered on 10/01/16 18:10; Admin Dose 102.8 MLS/HR; Start 09/29/16 at 17:00 Morphine Sulfate (Ms Contin (Er)) 60 mg Q6 PO Last administered on 10/02/16 12 :47; Admin Dose 60 MG; Start 10/01/16 at 18:00 Miscellaneous Information (*Rx Drug Level Order Reminder*) AMIKACIN TROUGH AT 1... ONCE ONCE XX ; Start 10/02/16 at 16:00; Stop 10/02/16 at 16:01 Phenol (Cepastat Lozenge) 1 lozenge Q2H PRN MT SORE THROAT Last administered on 10/02/16t 12:48; Admin Dose 1 LOZENGE; Start 10/01/16 at 19:00 RUBIN MAYEN NP Oct 02, 2016 15:47
--- NOTE | 2016-10-02 16:41 | PN ---
Date/Time of Note Date/Time of Note DATE: 10/02/16 TIME: 16:41 Assessment/Plan VTE Prophylaxis VTE Prophylaxis Intervention: SCD's Lines/Catheters IV Catheter Type (from [facility]): Peripheral IV Central line still needed: No Urinary Cath still in place: Yes Reason Cath still needed: urinary retention Assessment/Plan Chief Complaint/Hosp Course Patient is a 66-year-old female with anemia and cancer presents for anemia and leukocytosis. The patient was sent by Dr. Dozier from [facility] for admission. The patient said that she was "not feeling well all weekend". She was brought in by ambulance. She said that she had a fever but did not check her temperature. She has had cough and urinary symptoms as well as sore throat. The patient had peristent hypotension but no sycnope and remains stabe with no chest pain and no overt CHF Problems: Assessment/Plan 1. Sepsis with leukocytosis 2. Anemia of chronic disease 3. Chronic obstructive pulmonary disease. 4. Multiple decubitus ulcers with history of debridement. 5. Chronic urinary retention. 6. Left lung squamous cell carcinoma. 7. Hx of Congestive heart failure. 8.C/O Back pain sec to sacral wound 9. Hypotension -Remains asymptomatic but if further drop in bp will stop metoprolol > continue as hx of diastolic CHF with an EF of 55% -s/p G-Tube revision -on antibiotics -GI care Subjective 24 Hr Interval Summary Free Text/Dictation The ptient withno change Exam/Review of Systems Vital Signs Vitals Vital Signs Date Time Temp Pulse Resp B/P Pulse Ox O2 Delivery O2 Flow Rate FiO2 10/02/16 13:38 2.0 10/02/16 07:25 98.2 93 18 100/57 92 10/01/16 21:30 Nasal Cannula Intake and Output 10/01/16 10/01/16 10/02/16 15:00 23:00 07:00 Intake Total 1682.8 ml Output Total 900 ml Balance 782.8 ml Results Result Diagram: 09/29/16 0618 10/02/16 0532 Results 24 hrs Laboratory Tests Test 10/01/16 20:05 10/02/16 05:32 10/02/16 10:29 Stool Occult Blood NEGATIVE Blood Urea Nitrogen 12 Creatinine 0.32 L Lab Scanned Report REFERENCE LAB Medications Medications Current Medications Ondansetron HCl (Zofran Inj) 4 mg Q6 PRN IV NAUSEA AND/OR VOMITING; Start 09/26 at 22:30 Acetaminophen (Tylenol Tab) 650 mg Q6H PRN PO PAIN AND OR ELEVATED TEMP Last administered on 10/02/16 03:15; Admin Dose 650 MG; Start 09/26/16 at 23:00 Alprazolam (Xanax) 0.5 mg Q12 PRN PO ANXIETY Last administered on 09/29/16 04: 10; Admin Dose 0.5 MG; Start 09/26/16 at 23:00 Ascorbic Acid (Vitamin C) 500 mg BID PO Last administered on 10/02/16 09:27; Admin Dose 500 MG; Start 09/27/16 at 09:00 Atorvastatin Calcium (Lipitor) 20 mg QHS PO Last administered on 10/01/16 22: 01; Admin Dose 20 MG; Start 09/27/16 at 21:00 Diazepam (Valium) 10 mg DAILY PO Last administered on 10/02/16 09:27; Admin Dose 10 MG; Start 09/27/16 at 09:00 Docusate Sodium (Colace) 100 mg Q12H PRN PO CONSTIPATION; Start 09/26/16 at 23: 00 Duloxetine HCl (Cymbalta) 20 mg DAILY PO Last administered on 10/02/16 09:36; Admin Dose 20 MG; Start 09/27/16 at 09:00 Ferrous Sulfate (Ferrous Sulfate (Ec)) 325 mg BID PO Last administered on 09:27; Admin Dose 325 MG; Start 09/27/16 at 09:00 Gabapentin (Neurontin) 300 mg TID PO Last administered on 10/02/16 12:47; Admin Dose 300 MG; Start 09/27/16 at 09:00 Lactobacillus Acidoph/Bulgaricus (Floranex) 1 tab TID PO Last administered on 12:47; Admin Dose 1 TAB; Start 09/27/16 at 09:00 Losartan Potassium (Cozaar) 50 mg DAILY PO Last administered on 10/01/16 08:40 ; Admin Dose 50 MG; Start 09/27/16 at 09:00 Zolpidem Tartrate (Ambien) 5 mg QHS PRN PO INSOMNIA Last administered on 22:10; Admin Dose 5 MG; Start 09/26/16 at 23:00 Collagenase (Santyl) 1 applic DAILY TOP Last administered on 10/02/16 09:47; Admin Dose 1 APPLIC; Start 09/27/16 at 09:00 Collagenase 1 applic 1 applic PRN PRN TOP SOILED OR DISLODGED DRESSING; Start 09/27/16 at 05:00 Sodium Chloride (NS) 1,000 ml @ 40 mls/hr Q24H IV Last administered on 12:47; Admin Dose 40 MLS/HR; Start 09/27/16 at 13:00 Lansoprazole (Prevacid) 30 mg DAILY@06 GTB Last administered on 10/02/16 05:35 ; Admin Dose 30 MG; Start 09/28/16 at 06:00 Metoprolol Tartrate (Lopressor) 25 mg BID PO Last administered on 10/01/16 22: 03; Admin Dose 25 MG; Start 09/27/16 at 21:00 Mupirocin (Bactroban) 1 applic BID TOP Last administered on 10/02/16 09:46; Admin Dose 1 APPLIC; Start 09/28/16 at 21:00 Cromolyn Sodium (Nasalcrom) 1 spray QID NASAL Last administered on 10/02/16 12 :51; Admin Dose 1 SPRAY; Start 09/29/16 at 11:02 Linezolid (Zyvox) 600 mg BID PO Last administered on 10/02/16 09:27; Admin Dose 600 MG; Start 09/29/16 at 21:00 Amikacin Sulfate AMIKACIN PER PHARMACY NOTE XX ; Start 09/29/16 at 15:30 Amikacin Sulfate/ Dextrose (Amikacin/D5W) 102.8 ml @ 102.8 mls/ hr Q24H IVPB Last administered on 10/01/16 18:10; Admin Dose 102.8 MLS/HR; Start 09/29/16 at 17:00 Morphine Sulfate (Ms Contin (Er)) 60 mg Q6 PO Last administered on 10/02/16 12 :47; Admin Dose 60 MG; Start 10/01/16 at 18:00 Phenol (Cepastat Lozenge) 1 lozenge Q2H PRN MT SORE THROAT Last administered on 10/02/16 12:48; Admin Dose 1 LOZENGE; Start 10/01/16 at 19:00 RALPH LUCAS MD Oct 02, 2016 16:41
[2016-10-02] MEDS: AMIKACIN 700 MG in DEXTROSE 5% 100 ML IVPB SCH (17:00)
[2016-10-02] MEDS ORDERED: SOD CHLORIDE 0.9% 100 ML ONE (17:20)
--- NOTE | 2016-10-02 18:26 | RADRPT ---
PROCEDURE: XR Chest. CLINICAL INDICATION: PICC line placement TECHNIQUE: Single frontal chest x-ray. COMPARISON: and 17 FINDINGS: There is a new right PICC line with tip in the SVC. Heart is normal in size.. There is redemonstrat ed left lower lateral lung mass. Vessels are mildly engorged. There are ill-defined patchy right upper lobe basilar infiltrates.. There is no pleural effusion. There is no pneumothorax. The osse ous structures are unremarkable. IMPRESSION: Right PICC line with tip in the SVC. Otherwise no change. RPTAT: HMVK .Artemio Dunlap MD, Date Time Electronically viewed and signed by .Artemio Dunlap MD, on 10/02/2016 18:26 .K/
--- NOTE | 2016-10-02 18:55 | RADRPT ---
AMENDMENT: 10/04/2016 2:00:56 PM Sammy Carlson Md Please disregard the original report and use the following report instead: PROCEDURE: US guidance for PICC line CLINICAL INDICATION: PICC line placement TECHNIQUE: Multiple real-time images were acquired of the patient's right arm utilizing a high resol ution transducer. This was performed by the PICC line nurse for venous access. COMPARISON: None FINDINGS: Patent right brachial vein. Ultrasound guidance for PICC line placement. IMPRESSION: Ultrasound guidance for PICC line placement. Patent right brachial vein. RPTAT: AA PROCEDURE: ULTRASOUND GUIDED PICC LINE PLACEMENT CLINICAL INDICATION: Antibiotics TECHNIQUE: Multiple real-time images were acquired of the patient's right arm utilizing a high res olution transducer. This was performed by a PICC line nurse for venous access. 1% lidocaine was uti lized for local anesthesia. Under ultrasound guidance, a 22-gauge needle was advanced into the left brachial vein. A wire was advanced through the needle which was exchanged over the wire for a peel- away sheath. A triple lumen PICC line was then advanced through the peel-away sheath and positioned over the superior cavoatrial junction as confirmed by a subsequent chest x-ray. The lumens of the PICC line were loaded with heparinized saline and the PICC line was affixed to the patient's left ar m. There were no complications. COMPARISON: None FINDINGS: Ultrasound-guided PICC line placement. The right brachial vein is patent. IMPRESSION: Ultrasound guided PICC line placement in the right brachial vein. RPTAT: AA Physician Raghu Date Time Electronically viewed and signed by Iglesia Carlson Physician on 10/04/2016 14:01 /
--- NOTE | 2016-10-02 19:17 | PN ---
Date/Time of Note Date/Time of Note DATE: 10/02/16 TIME: 19:12 Assessment/Plan VTE Prophylaxis VTE Prophylaxis Intervention: SCD's Lines/Catheters IV Catheter Type (from Nrs): PICC Line Central line still needed: Yes Urinary Cath still in place: Yes Reason Cath still needed: urinary retention Assessment/Plan Chief Complaint/Hosp Course ASSESSMENT AND PLAN: - Recurrent sepsis. - Polymicrobial urinary tract infection. - Left lung squamous cell carcinoma. - Chronic obstructive pulmonary disease. - Multiple decubitus ulcers with history of debridement. - Methicillin-resistant Staphylococcus aureus nares colonization. - Cachexia. - Dysphagia with G-tube placement - Chronic urinary retention. - Anemia of chronic disease. Problems: Subjective 24 Hr Interval Summary Free Text/Dictation Patient looks comfortable and supplemental oxygen, remains afebrile. Exam/Review of Systems Vital Signs Vitals Vital Signs Date Time Temp Pulse Resp B/P Pulse Ox O2 Delivery O2 Flow Rate FiO2 10/02/16 13:38 2.0 10/02/16 07:25 98.2 93 18 100/57 92 10/01/16 21:30 Nasal Cannula Intake and Output 10/01/16 10/01/16 10/02/16 15:00 23:00 07:00 Intake Total 1682.8 ml Output Total 900 ml Balance 782.8 ml Exam Constitutional: alert, oriented Psych: no complaints Head: atraumatic, normocephalic Eyes: nl conjunctiva ENMT: nl external ears & nose Neck: non-tender, supple Respiratory: clear to auscultation, normal air movement Cardiovascular: nl pulses, regular rate and rhythm Gastrointestinal: non-tender, other (G-tube), soft Musculoskeletal: nl extremities to inspection Extremities: normal pulses Neurological: PROTEOMICS SCIENTIST II-XII intact Skin: other (Multiple decubitus ulcers including bilateral buttocks, lower extremities) Results Result Diagram: 09/29/16 0618 10/02/16 0532 Results 24 hrs Laboratory Tests Test 10/01/16 20:05 10/02/16 05:32 10/02/16 10:29 Stool Occult Blood NEGATIVE Blood Urea Nitrogen 12 Creatinine 0.32 L Lab Scanned Report REFERENCE LAB Medications Medications Current Medications Ondansetron HCl (Zofran Inj) 4 mg Q6 PRN IV NAUSEA AND/OR VOMITING; Start 09/26 at 22:30 Acetaminophen (Tylenol Tab) 650 mg Q6H PRN PO PAIN AND OR ELEVATED TEMP Last administered on 10/02/16 03:15; Admin Dose 650 MG; Start 09/26/16 at 23:00 Alprazolam (Xanax) 0.5 mg Q12 PRN PO ANXIETY Last administered on 09/29/16 04: 10; Admin Dose 0.5 MG; Start 09/26/16 at 23:00 Ascorbic Acid (Vitamin C) 500 mg BID PO Last administered on 10/02/16 09:27; Admin Dose 500 MG; Start 09/27/16 at 09:00 Atorvastatin Calcium (Lipitor) 20 mg QHS PO Last administered on 10/01/16 22: 01; Admin Dose 20 MG; Start 09/27/16 at 21:00 Diazepam (Valium) 10 mg DAILY PO Last administered on 10/02/16 09:27; Admin Dose 10 MG; Start 09/27/16 at 09:00 Docusate Sodium (Colace) 100 mg Q12H PRN PO CONSTIPATION; Start 09/26/16 at 23: 00 Duloxetine HCl (Cymbalta) 20 mg DAILY PO Last administered on 10/02/16 09:36; Admin Dose 20 MG; Start 09/27/16 at 09:00 Ferrous Sulfate (Ferrous Sulfate (Ec)) 325 mg BID PO Last administered on 09:27; Admin Dose 325 MG; Start 09/27/16 at 09:00 Gabapentin (Neurontin) 300 mg TID PO Last administered on 10/02/16 12:47; Admin Dose 300 MG; Start 09/27/16 at 09:00 Lactobacillus Acidoph/Bulgaricus (Floranex) 1 tab TID PO Last administered on 12:47; Admin Dose 1 TAB; Start 09/27/16 at 09:00 Losartan Potassium (Cozaar) 50 mg DAILY PO Last administered on 10/01/16 08:40 ; Admin Dose 50 MG; Start 09/27/16 at 09:00 Zolpidem Tartrate (Ambien) 5 mg QHS PRN PO INSOMNIA Last administered on 22:10; Admin Dose 5 MG; Start 09/26/16 at 23:00 Collagenase (Santyl) 1 applic DAILY TOP Last administered on 10/02/16 09:47; Admin Dose 1 APPLIC; Start 09/27/16 at 09:00 Collagenase 1 applic 1 applic PRN PRN TOP SOILED OR DISLODGED DRESSING; Start 09/27/16 at 05:00 Sodium Chloride (NS) 1,000 ml @ 40 mls/hr Q24H IV Last administered on 12:47; Admin Dose 40 MLS/HR; Start 09/27/16 at 13:00 Lansoprazole (Prevacid) 30 mg DAILY@06 GTB Last administered on 10/02/16 05:35 ; Admin Dose 30 MG; Start 09/28/16 at 06:00 Metoprolol Tartrate (Lopressor) 25 mg BID PO Last administered on 10/01/16 22: 03; Admin Dose 25 MG; Start 09/27/16 at 21:00 Mupirocin (Bactroban) 1 applic BID TOP Last administered on 10/02/16 09:46; Admin Dose 1 APPLIC; Start 09/28/16 at 21:00 Cromolyn Sodium (Nasalcrom) 1 spray QID NASAL Last administered on 10/02/16 18 :41; Admin Dose 1 SPRAY; Start 09/29/16 at 11:02 Linezolid (Zyvox) 600 mg BID PO Last administered on 10/02/16 09:27; Admin Dose 600 MG; Start 09/29/16 at 21:00 Amikacin Sulfate AMIKACIN PER PHARMACY NOTE XX ; Start 09/29/16 at 15:30 Amikacin Sulfate/ Dextrose (Amikacin/D5W) 102.8 ml @ 102.8 mls/ hr Q24H IVPB Last administered on 10/01/16 18:10; Admin Dose 102.8 MLS/HR; Start 09/29/16 at 17:00 Morphine Sulfate (Ms Contin (Er)) 60 mg Q6 PO Last administered on 10/02/16 18 :39; Admin Dose 60 MG; Start 10/01/16 at 18:00 Phenol (Cepastat Lozenge) 1 lozenge Q2H PRN MT SORE THROAT Last administered on 10/02/16 12:48; Admin Dose 1 LOZENGE; Start 10/01/16 at 19:00 IV Flush (NS 10 ml) 10 ml PRN PRN IV IV PROTOCOL; Start 10/02/16 at 19:00 REBECCA ISLAS Oct 02, 2016 19:17
[2016-10-02 20:18] VITALS: BP 118/60; RESP 19
[2016-10-02] MEDS: ATORVASTATIN 20 MG TAB PO SCH (21:08)
[2016-10-02] MEDS: ZOLPIDEM 5 MG TAB PO PRN (22:58)
[2016-10-02] MEDS: ALBUTEROL/IPRATROPIUM (NEB) 3 ML AMP NEB PRN (23:27)
[2016-10-03] MEDS: ACETAMINOPHEN 325 MG TAB PO PRN ×4 (03:57→22:52)
[2016-10-03] MEDS: morphine (ER) 30 MG TAB PO SCH ×3 (06:03→17:31)
[2016-10-03] MEDS: LANSOPRAZOLE 30 MG CAP GTB SCH (06:03)
[2016-10-03] MEDS: LEVOTHYROXINE 125 MCG TAB PO SCH (06:03)
[2016-10-03 07:42] VITALS: BP 82/60; RESP 18
[2016-10-03 08:33] VITALS: BP 89/62; PULSE 90
[2016-10-03] MEDS: LOSARTAN 50 MG TAB PO SCH (08:36)
[2016-10-03] MEDS: METOPROLOL 50 MG TAB PO SCH ×2 (08:37→21:00)
[2016-10-03] MEDS: AMIKACIN 700 MG in DEXTROSE 5% 100 ML IVPB SCH (08:42)
[2016-10-03] MEDS: ZYVOX 600 MG TAB PO SCH ×2 (08:43→22:07)
[2016-10-03] MEDS: GABAPENTIN 300 MG CAP PO SCH ×3 (08:43→22:07)
[2016-10-03] MEDS: ASCORBIC ACID 500 MG TAB PO SCH ×2 (08:43→22:07)
[2016-10-03] MEDS: LACTOBACILLUS CHEW TAB PO SCH ×2 (08:43→13:46)
[2016-10-03] MEDS: DULOXETINE 20 MG CAP DR PO SCH (08:43)
[2016-10-03] MEDS: DIAZEPAM 5 MG TAB PO SCH (08:43)
[2016-10-03] MEDS: FERROUS SULFATE (EC) 325 MG TAB PO SCH ×2 (08:43→22:15)
[2016-10-03] MEDS: MUPIROCIN 2% 22 GM OINT TOP SCH ×2 (08:44→22:09)
[2016-10-03] MEDS: CROMOLYN 4% 26ML NAS INH NASAL SCH ×4 (08:45→22:09)
[2016-10-03] MEDS: COLLAGENASE 30 GM TUBE TOP SCH (08:45)
[2016-10-03 12:10] VITALS: BP 86/58; PULSE 91; RESP 16
--- NOTE | 2016-10-03 12:30 | PN ---
Date/Time of Note Date/Time of Note DATE: 10/03/16 TIME: 12:30 Assessment/Plan VTE Prophylaxis VTE Prophylaxis Intervention: SCD's Lines/Catheters IV Catheter Type (from Nrsg): PICC Line Central line still needed: Yes Urinary Cath still in place: Yes Reason Cath still needed: urinary retention Assessment/Plan Chief Complaint/Hosp Course ASSESSMENT AND PLAN: - Recurrent sepsis. - Polymicrobial urinary tract infection. - Left lung squamous cell carcinoma. - Chronic obstructive pulmonary disease. - Multiple decubitus ulcers with history of debridement. - Methicillin-resistant Staphylococcus aureus nares colonization. - Cachexia. - Dysphagia with G-tube placement - Chronic urinary retention. - Anemia of chronic disease. Problems: Exam/Review of Systems Vital Signs Vitals Vital Signs Date Time Temp Pulse Resp B/P Pulse Ox O2 Delivery O2 Flow Rate FiO2 10/03/16 12:10 97.9 91 16 86/58 10/03/16 07:42 94 10/03/16 01:31 2.0 10/02/16 23:27 Nasal Cannula Intake and Output 10/02/16 10/02/16 10/03/16 15:00 23:00 07:00 Intake Total 920 ml 920 ml 1370 ml Output Total 800 ml 750 ml 700 ml Balance 120 ml 170 ml 670 ml Exam Constitutional: alert, oriented Psych: no complaints Head: atraumatic, normocephalic Eyes: nl conjunctiva ENMT: nl external ears & nose Neck: non-tender, supple Respiratory: clear to auscultation, normal air movement Cardiovascular: nl pulses, regular rate and rhythm Gastrointestinal: non-tender, other (G-tube), soft Musculoskeletal: nl extremities to inspection Extremities: normal pulses Neurological: HEADING AND PRIMING TOOL SETTER II-XII intact Skin: other (Multiple decubitus ulcers including bilateral buttocks, lower extremities) Results Result Diagram: 09/29/16 0618 10/02/16 0532 Results 24 hrs Laboratory Tests Test 10/02/16 16:05 10/03/16 07:53 10/03/16 09:25 Amikacin Level Trough Bedside Glucose 128 Lab Scanned Report REFERENCE LAB Medications Medications Current Medications Ondansetron HCl (Zofran Inj) 4 mg Q6 PRN IV NAUSEA AND/OR VOMITING; Start 09/26 at 22:30 Acetaminophen (Tylenol Tab) 650 mg Q6H PRN PO PAIN AND OR ELEVATED TEMP Last administered on 10/03/16 08:43; Admin Dose 650 MG; Start 09/26/16 at 23:00 Alprazolam (Xanax) 0.5 mg Q12 PRN PO ANXIETY Last administered on 09/29/16 04: 10; Admin Dose 0.5 MG; Start 09/26/16 at 23:00 Ascorbic Acid (Vitamin C) 500 mg BID PO Last administered on 10/03/16 08:43; Admin Dose 500 MG; Start 09/27/16 at 09:00 Atorvastatin Calcium (Lipitor) 20 mg QHS PO Last administered on 10/02/16 21: 08; Admin Dose 20 MG; Start 09/27/16 at 21:00 Diazepam (Valium) 10 mg DAILY PO Last administered on 10/03/16 08:43; Admin Dose 10 MG; Start 09/27/16 at 09:00 Docusate Sodium (Colace) 100 mg Q12H PRN PO CONSTIPATION; Start 09/26/16 at 23: 00 Duloxetine HCl (Cymbalta) 20 mg DAILY PO Last administered on 10/03/16 08:43; Admin Dose 20 MG; Start 09/27/16 at 09:00 Ferrous Sulfate (Ferrous Sulfate (Ec)) 325 mg BID PO Last administered on 08:43; Admin Dose 325 MG; Start 09/27/16 at 09:00 Gabapentin (Neurontin) 300 mg TID PO Last administered on 10/03/16 08:43; Admin Dose 300 MG; Start 09/27/16 at 09:00 Lactobacillus Acidoph/Bulgaricus (Floranex) 1 tab TID PO Last administered on 08:43; Admin Dose 1 TAB; Start 09/27/16 at 09:00 Losartan Potassium (Cozaar) 50 mg DAILY PO Last administered on 10/01/16 08:40 ; Admin Dose 50 MG; Start 09/27/16 at 09:00 Zolpidem Tartrate (Ambien) 5 mg QHS PRN PO INSOMNIA Last administered on 22:58; Admin Dose 5 MG; Start 09/26/16 at 23:00 Collagenase (Santyl) 1 applic DAILY TOP Last administered on 10/02/16 09:47; Admin Dose 1 APPLIC; Start 09/27/16 at 09:00 Collagenase 1 applic 1 applic PRN PRN TOP SOILED OR DISLODGED DRESSING; Start 09/27/16 at 05:00 Sodium Chloride (NS) 1,000 ml @ 40 mls/hr Q24H IV Last administered on 12:47; Admin Dose 40 MLS/HR; Start 09/27/16 at 13:00 Lansoprazole (Prevacid) 30 mg DAILY@06 GTB Last administered on 10/03/16 06:03 ; Admin Dose 30 MG; Start 09/28/16 at 06:00 Metoprolol Tartrate (Lopressor) 25 mg BID PO Last administered on 10/02/16 21: 08; Admin Dose 25 MG; Start 09/27/16 at 21:00 Mupirocin (Bactroban) 1 applic BID TOP Last administered on 10/03/16 08:44; Admin Dose 1 APPLIC; Start 09/28/16 at 21:00 Cromolyn Sodium (Nasalcrom) 1 spray QID NASAL Last administered on 10/03/16 08 :45; Admin Dose 1 SPRAY; Start 09/29/16 at 11:02 Linezolid (Zyvox) 600 mg BID PO Last administered on 10/03/16 08:43; Admin Dose 600 MG; Start 09/29/16 at 21:00 Amikacin Sulfate AMIKACIN PER PHARMACY NOTE XX ; Start 09/29/16 at 15:30 Amikacin Sulfate/ Dextrose (Amikacin/D5W) 102.8 ml @ 102.8 mls/ hr Q24H IVPB Last administered on 10/03/16 08:42; Admin Dose 102.8 MLS/HR; Start 09/29/16 at 17:00 Morphine Sulfate (Ms Contin (Er)) 60 mg Q6 PO Last administered on 10/03/16 12 :12; Admin Dose 60 MG; Start 10/01/16 at 18:00 Phenol (Cepastat Lozenge) 1 lozenge Q2H PRN MT SORE THROAT Last administered on 10/02/16 12:48; Admin Dose 1 LOZENGE; Start 10/01/16 at 19:00 IV Flush (NS 10 ml) 10 ml PRN PRN IV IV PROTOCOL; Start 10/02/16 at 19:00 REBECCA ISLAS Oct 03, 2016 12:30
[2016-10-03] MEDS: SOD CHLORIDE 0.9% 1,000 ML IV SCH ×2 (13:00→17:51)
--- NOTE | 2016-10-03 17:40 | CONS ---
Date/Time of Note Date/Time of Note DATE: 10/03/16 TIME: 17:39 Assessment/Plan Assessment/Plan Chief Complaint/Hosp Course SUBJECTIVE: No acute changes No fevers. No nausea, vomiting, diarrhea, tolerates tube feedings. MICROBIOLOGY: A urine culture growing Proteus mirabilis and Klebsiella pneumoniae, both susceptible to amikacin and Zosyn. Wound culture growing Enterococcus, Klebsiella, extended-spectrum beta-lactamase, Citrobacter. INDWELLINGS: PEG, George. ANTIMICROBIALS: 1. Amikacin 2. Topical Bactroban to nares. 3. Zyvox. PHYSICAL EXAMINATION GENERAL: Cachectic, elderly, woman who is in no distress. HEENT: Head atraumatic, normocephalic. Sclerae are anicteric. Buccal mucosa dry. NECK: Supple. CHEST: Rise symmetrical. Breath sounds diminished to bases. HEART: S1, S2. ABDOMEN: Soft, bowel tones present. EXTREMITIES: Without cyanosis, edema. ASSESSMENT 1. Recurrent sepsis. 2. Polymicrobial urinary tract infection. 3. Unstageable sacral decubitus. 4. Methicillin-resistant Staphylococcus aureus nares colonization. 5. Cachexia. 6. Lung cancer. 7. ALLERGY TO PENICILLIN. 8. History of Clostridium difficile colitis. 9. Abnormal LFT PLAN: Clinically unchanged. Continue present care, local wound care, abx and Bactroban to nares. DW staff Problems: Consultation Date/Type/Reason Admit Date/Time Sep 26, 2016 at 20:07 Type of Consultation: ID Exam/Review of Systems Vital Signs Vitals Vital Signs Date Time Temp Pulse Resp B/P Pulse Ox O2 Delivery O2 Flow Rate FiO2 10/03/16 14:41 Nasal Cannula 2.0 10/03/16 12:10 97.9 91 16 86/58 10/03/16 07:42 94 Intake and Output 10/02/16 10/02/16 10/03/16 15:00 23:00 07:00 Intake Total 920 ml 920 ml 1370 ml Output Total 800 ml 750 ml 700 ml Balance 120 ml 170 ml 670 ml Results Result Diagram: 09/29/16 0618 10/02/16 0532 Results 24 hrs Laboratory Tests Test 10/03/16 07:53 10/03/16 09:25 Bedside Glucose 128 Lab Scanned Report REFERENCE LAB Medications Medications Current Medications Ondansetron HCl (Zofran Inj) 4 mg Q6 PRN IV NAUSEA AND/OR VOMITING; Start 09/26 at 22:30 Acetaminophen (Tylenol Tab) 650 mg Q6H PRN PO PAIN AND OR ELEVATED TEMP Last administered on 10/03/16 16:13; Admin Dose 650 MG; Start 09/26/16 at 23:00 Alprazolam (Xanax) 0.5 mg Q12 PRN PO ANXIETY Last administered on 09/29/16 04: 10; Admin Dose 0.5 MG; Start 09/26/16 at 23:00 Ascorbic Acid (Vitamin C) 500 mg BID PO Last administered on 10/03/16 08:43; Admin Dose 500 MG; Start 09/27/16 at 09:00 Atorvastatin Calcium (Lipitor) 20 mg QHS PO Last administered on 10/02/16 21: 08; Admin Dose 20 MG; Start 09/27/16 at 21:00 Diazepam (Valium) 10 mg DAILY PO Last administered on 10/03/16 08:43; Admin Dose 10 MG; Start 09/27/16 at 09:00 Docusate Sodium (Colace) 100 mg Q12H PRN PO CONSTIPATION; Start 09/26/16 at 23: 00 Duloxetine HCl (Cymbalta) 20 mg DAILY PO Last administered on 10/03/16 08:43; Admin Dose 20 MG; Start 09/27/16 at 09:00 Ferrous Sulfate (Ferrous Sulfate (Ec)) 325 mg BID PO Last administered on 08:43; Admin Dose 325 MG; Start 09/27/16 at 09:00 Gabapentin (Neurontin) 300 mg TID PO Last administered on 10/03/16 13:46; Admin Dose 300 MG; Start 09/27/16 at 09:00 Lactobacillus Acidoph/Bulgaricus (Floranex) 1 tab TID PO Last administered on 13:46; Admin Dose 1 TAB; Start 09/27/16 at 09:00 Losartan Potassium (Cozaar) 50 mg DAILY PO Last administered on 10/01/16 08:40 ; Admin Dose 50 MG; Start 09/27/16 at 09:00 Zolpidem Tartrate (Ambien) 5 mg QHS PRN PO INSOMNIA Last administered on 22:58; Admin Dose 5 MG; Start 09/26/16 at 23:00 Collagenase (Santyl) 1 applic DAILY TOP Last administered on 10/02/16 09:47; Admin Dose 1 APPLIC; Start 09/27/16 at 09:00 Collagenase 1 applic 1 applic PRN PRN TOP SOILED OR DISLODGED DRESSING; Start 09/27/16 at 05:00 Sodium Chloride (NS) 1,000 ml @ 40 mls/hr Q24H IV Last administered on 12:47; Admin Dose 40 MLS/HR; Start 09/27/16 at 13:00 Lansoprazole (Prevacid) 30 mg DAILY@06 GTB Last administered on 10/03/16 06:03 ; Admin Dose 30 MG; Start 09/28/16 at 06:00 Metoprolol Tartrate (Lopressor) 25 mg BID PO Last administered on 10/02/16 21: 08; Admin Dose 25 MG; Start 09/27/16 at 21:00 Mupirocin (Bactroban) 1 applic BID TOP Last administered on 10/03/16 08:44; Admin Dose 1 APPLIC; Start 09/28/16 at 21:00 Cromolyn Sodium (Nasalcrom) 1 spray QID NASAL Last administered on 10/03/16 16 :13; Admin Dose 1 SPRAY; Start 09/29/16 at 11:02 Linezolid (Zyvox) 600 mg BID PO Last administered on 10/03/16 08:43; Admin Dose 600 MG; Start 09/29/16 at 21:00 Amikacin Sulfate (Amikacin Iv Per Pharmacy) AMIKACIN PER PHARMACY NOTE XX ; Start 09/29/16 at 15:30 Morphine Sulfate (Ms Contin (Er)) 60 mg Q6 PO Last administered on 10/03/16 17 :31; Admin Dose 60 MG; Start 10/01/16 at 18:00 Phenol (Cepastat Lozenge) 1 lozenge Q2H PRN MT SORE THROAT Last administered on 10/02/16 12:48; Admin Dose 1 LOZENGE; Start 10/01/16 at 19:00 IV Flush 10 ml 10 ml PRN PRN IV IV PROTOCOL; Start 10/02/16 at 19:00 Amikacin Sulfate/ Dextrose (Amikacin/D5W) 102.8 ml @ 102.8 mls/ hr Q24H IVPB ; Start 10/04/16 at 09:00 RUBIN MAYEN NP Oct 03, 2016 17:40
[2016-10-03] MEDS: L ACIDOPHIL/B LACTIS/B LONGUM CAPSULE PO SCH (22:06)
[2016-10-03] MEDS: ATORVASTATIN 20 MG TAB PO SCH (22:07)
--- NOTE | 2016-10-03 22:56 | PN ---
Date/Time of Note Date/Time of Note DATE: 10/03/16 TIME: 22:56 Assessment/Plan VTE Prophylaxis VTE Prophylaxis Intervention: SCD's Lines/Catheters IV Catheter Type (from Nrs): PICC Line Central line still needed: No Urinary Cath still in place: Yes Reason Cath still needed: urinary retention Assessment/Plan Chief Complaint/Hosp Course Patient is a 66-year-old female with anemia and cancer presents for anemia and leukocytosis. The patient was sent by Dr. Dozier from [facility] for admission. The patient said that she was "not feeling well all weekend". She was brought in by ambulance. She said that she had a fever but did not check her temperature. She has had cough and urinary symptoms as well as sore throat. The patient had peristent hypotension but no sycnope and remains stabe with no chest pain and no overt CHF Problems: Assessment/Plan 1. Sepsis with leukocytosis 2. Anemia of chronic disease 3. Chronic obstructive pulmonary disease. 4. Multiple decubitus ulcers with history of debridement. 5. Chronic urinary retention. 6. Left lung squamous cell carcinoma. 7. Hx of Congestive heart failure. 8.C/O Back pain sec to sacral wound 9. Hypotension -Remains asymptomatic but if further drop in bp will stop metoprolol > continue as hx of diastolic CHF with an EF of 55% -s/p G-Tube revision -on antibiotics -GI care Subjective 24 Hr Interval Summary Free Text/Dictation the patient with no cahgne Exam/Review of Systems Vital Signs Vitals Vital Signs Date Time Temp Pulse Resp B/P Pulse Ox O2 Delivery O2 Flow Rate FiO2 10/03/16 14:41 Nasal Cannula 2.0 10/03/16 12:10 97.9 91 16 86/58 10/03/16 07:42 94 Intake and Output 10/02/16 10/02/16 10/03/16 15:00 23:00 07:00 Intake Total 920 ml 920 ml 1370 ml Output Total 800 ml 750 ml 700 ml Balance 120 ml 170 ml 670 ml Results Result Diagram: 09/29/16 0618 10/02/16 0532 Results 24 hrs Laboratory Tests Test 10/03/16 07:53 10/03/16 09:25 Bedside Glucose 128 Lab Scanned Report REFERENCE LAB Medications Medications Current Medications Ondansetron HCl (Zofran Inj) 4 mg Q6 PRN IV NAUSEA AND/OR VOMITING; Start 09/26 at 22:30 Acetaminophen (Tylenol Tab) 650 mg Q6H PRN PO PAIN AND OR ELEVATED TEMP Last administered on 10/03/16 22:52; Admin Dose 650 MG; Start 09/26/16 at 23:00 Alprazolam (Xanax) 0.5 mg Q12 PRN PO ANXIETY Last administered on 09/29/16 04: 10; Admin Dose 0.5 MG; Start 09/26/16 at 23:00 Ascorbic Acid (Vitamin C) 500 mg BID PO Last administered on 10/03/16 22:07; Admin Dose 500 MG; Start 09/27/16 at 09:00 Atorvastatin Calcium (Lipitor) 20 mg QHS PO Last administered on 10/03/16 22: 07; Admin Dose 20 MG; Start 09/27/16 at 21:00 Diazepam (Valium) 10 mg DAILY PO Last administered on 10/03/16 08:43; Admin Dose 10 MG; Start 09/27/16 at 09:00 Docusate Sodium (Colace) 100 mg Q12H PRN PO CONSTIPATION; Start 09/26/16 at 23: 00 Duloxetine HCl (Cymbalta) 20 mg DAILY PO Last administered on 10/03/16 08:43; Admin Dose 20 MG; Start 09/27/16 at 09:00 Ferrous Sulfate (Ferrous Sulfate (Ec)) 325 mg BID PO Last administered on 22:15; Admin Dose 325 MG; Start 09/27/16 at 09:00 Gabapentin (Neurontin) 300 mg TID PO Last administered on 10/03/16 22:07; Admin Dose 300 MG; Start 09/27/16 at 09:00 Losartan Potassium (Cozaar) 50 mg DAILY PO Last administered on 10/01/16 08:40 ; Admin Dose 50 MG; Start 09/27/16 at 09:00 Zolpidem Tartrate (Ambien) 5 mg QHS PRN PO INSOMNIA Last administered on 22:58; Admin Dose 5 MG; Start 09/26/16 at 23:00 Collagenase (Santyl) 1 applic DAILY TOP Last administered on 10/02/16 09:47; Admin Dose 1 APPLIC; Start 09/27/16 at 09:00 Collagenase 1 applic 1 applic PRN PRN TOP SOILED OR DISLODGED DRESSING; Start 09/27/16 at 05:00 Sodium Chloride (NS) 1,000 ml @ 40 mls/hr Q24H IV Last administered on 17:51; Admin Dose 40 MLS/HR; Start 09/27/16 at 13:00 Lansoprazole (Prevacid) 30 mg DAILY@06 GTB Last administered on 10/03/16 06:03 ; Admin Dose 30 MG; Start 09/28/16 at 06:00 Metoprolol Tartrate (Lopressor) 25 mg BID PO Last administered on 10/02/16 21: 08; Admin Dose 25 MG; Start 09/27/16 at 21:00 Mupirocin (Bactroban) 1 applic BID TOP Last administered on 10/03/16 22:09; Admin Dose 1 APPLIC; Start 09/28/16 at 21:00 Cromolyn Sodium (Nasalcrom) 1 spray QID NASAL Last administered on 10/03/16 22 :09; Admin Dose 1 SPRAY; Start 09/29/16 at 11:02 Linezolid (Zyvox) 600 mg BID PO Last administered on 10/03/16 22:07; Admin Dose 600 MG; Start 09/29/16 at 21:00 Amikacin Sulfate (Amikacin Iv Per Pharmacy) AMIKACIN PER PHARMACY NOTE XX ; Start 09/29/16 at 15:30 Morphine Sulfate (Ms Contin (Er)) 60 mg Q6 PO Last administered on 10/03/16 17 :31; Admin Dose 60 MG; Start 10/01/16 at 18:00 Phenol (Cepastat Lozenge) 1 lozenge Q2H PRN MT SORE THROAT Last administered on 10/02/16 12:48; Admin Dose 1 LOZENGE; Start 10/01/16 at 19:00 IV Flush 10 ml 10 ml PRN PRN IV IV PROTOCOL; Start 10/02/16 at 19:00 Amikacin Sulfate/ Dextrose (Amikacin/D5W) 102.8 ml @ 102.8 mls/ hr Q24H IVPB ; Start 10/04/16 at 09:00 Lactobacillus Acidophilus (Florajen3 Capsule) 1 each TID PO Last administered on 10/03/16 22:06; Admin Dose 1 EACH; Start 10/03/16 at 21:00 RALPH LUCAS MD Oct 03, 2016 22:56
[2016-10-03 23:08] VITALS: BP 103/55; RESP 16
[2016-10-04] MEDS: morphine (ER) 30 MG TAB PO SCH ×5 (00:07→23:38)
[2016-10-04] MEDS: ZOLPIDEM 5 MG TAB PO PRN (01:36)
[2016-10-04 05:42] LABS: ADD SCAN DIFF NO
[2016-10-04] MEDS: LEVOTHYROXINE 125 MCG TAB PO SCH (05:42)
[2016-10-04] MEDS: LANSOPRAZOLE 30 MG CAP GTB SCH (05:43)
[2016-10-04 05:51] LABS: ABNORMAL IP MESSAGE 1; BASOPHIL # 0.1 10^3/ul (0.0-0.1); BASOPHILS % 0.6 % (0.0-2.0); EOSINOPHILS # 0.7 10^3/ul (0.0-0.5); EOSINOPHILS % 4.3 % (0.0-7.0); HEMATOCRIT 28.4 % (37.0-47.0); HEMOGLOBIN 8.4 g/dl (12.0-16.0); LYMPHOCYTES # 2.3 10^3/ul (0.8-2.9); MEAN CORPUSCULAR HEMOGLOBIN 25.1 pg (29.0-33.0); MEAN CORPUSCULAR HGB CONC 29.6 g/dl (32.0-37.0); MEAN PLATELET VOLUME 8.9 fl (7.4-10.4); MONOCYTE # 1.6 10^3/ul (0.3-0.9); MONOCYTES % 9.6 % (0.0-11.0); NEUTROPHIL # 11.6 10^3/ul (1.6-7.5); NEUTROPHILS % 70.9 % (39.0-77.0); PLATELET COUNT 399 10^3/UL (140-415); RED BLOOD COUNT 3.34 10^6/ul (4.20-5.40); RED CELL DISTRIBUTION WIDTH 16.8 % (11.5-14.5); WHITE BLOOD COUNT 16.3 10^3/ul (4.8-10.8)
[2016-10-04 06:01] LABS: CALCIUM 7.6 mg/dl (8.4-10.2); CREATININE 0.31 mg/dl (0.44-1.00); POTASSIUM 3.9 mmol/L (3.5-5.1)
[2016-10-04 07:30] VITALS: BP 120/62; RESP 18
[2016-10-04] MEDS: GABAPENTIN 300 MG CAP PO SCH ×3 (08:53→20:29)
[2016-10-04] MEDS: ACETAMINOPHEN 325 MG TAB PO PRN ×3 (08:53→20:28)
[2016-10-04] MEDS: DULOXETINE 20 MG CAP DR PO SCH (08:54)
[2016-10-04] MEDS: FERROUS SULFATE (EC) 325 MG TAB PO SCH ×2 (08:54→20:28)
[2016-10-04] MEDS: ZYVOX 600 MG TAB PO SCH ×2 (08:54→20:29)
[2016-10-04] MEDS: DIAZEPAM 5 MG TAB PO SCH (08:54)
[2016-10-04] MEDS: ASCORBIC ACID 500 MG TAB PO SCH ×2 (08:54→20:29)
[2016-10-04] MEDS: LOSARTAN 50 MG TAB PO SCH (08:54)
[2016-10-04] MEDS: METOPROLOL 50 MG TAB PO SCH ×2 (08:55→20:29)
[2016-10-04] MEDS: CROMOLYN 4% 26ML NAS INH NASAL SCH ×4 (08:55→20:30)
[2016-10-04] MEDS: AMIKACIN 700 MG in DEXTROSE 5% 100 ML IVPB SCH (08:55)
[2016-10-04] MEDS: MUPIROCIN 2% 22 GM OINT TOP SCH ×2 (08:56→20:30)
[2016-10-04] MEDS: COLLAGENASE 30 GM TUBE TOP SCH (08:56)
[2016-10-04] MEDS: L ACIDOPHIL/B LACTIS/B LONGUM CAPSULE PO SCH ×3 (12:22→20:28)
--- NOTE | 2016-10-04 15:40 | CONS ---
Date/Time of Note Date/Time of Note DATE: 10/04/16 TIME: 15:39 Assessment/Plan Assessment/Plan Chief Complaint/Hosp Course SUBJECTIVE: No acute changes, tolerates tube feedings, no fevers. MICROBIOLOGY: A urine culture growing Proteus mirabilis and Klebsiella pneumoniae, both susceptible to amikacin and Zosyn. Wound culture growing Enterococcus, Klebsiella, extended-spectrum beta-lactamase, Citrobacter. INDWELLINGS: PEG, George. ANTIMICROBIALS: 1. Amikacin 2. Topical Bactroban to nares. 3. Zyvox. PHYSICAL EXAMINATION GENERAL: Cachectic, elderly, woman who is in no distress. HEENT: Head atraumatic, normocephalic. Sclerae are anicteric. Buccal mucosa dry. NECK: Supple. CHEST: Rise symmetrical. Breath sounds diminished to bases. HEART: S1, S2. ABDOMEN: Soft, bowel tones present. EXTREMITIES: Without cyanosis, edema. ASSESSMENT 1. Recurrent sepsis. 2. Polymicrobial urinary tract infection. 3. Unstageable sacral decubitus. 4. Methicillin-resistant Staphylococcus aureus nares colonization. 5. Cachexia. 6. Lung cancer. 7. ALLERGY TO PENICILLIN. 8. History of Clostridium difficile colitis. 9. Abnormal LFT PLAN: Clinically unchanged. Continue present care, local wound care, abx, Bactroban to nares. DW staff Problems: Consultation Date/Type/Reason Admit Date/Time Sep 26, 2016 at 20:07 Type of Consultation: ID Exam/Review of Systems Vital Signs Vitals Vital Signs Date Time Temp Pulse Resp B/P Pulse Ox O2 Delivery O2 Flow Rate FiO2 10/04/16 10:42 Nasal Cannula 2.0 10/04/16 07:30 98.6 64 18 120/62 96 Intake and Output 10/03/16 10/03/16 10/04/16 15:00 23:00 07:00 Intake Total 1130 ml 1960 ml Output Total 900 ml 1800 ml Balance 230 ml 160 ml Results Result Diagram: 10/04/1643910/04/16439 Results 24 hrs Laboratory Tests Test 10/04/16 04:40 White Blood Count 16.3 H Red Blood Count 3.34 L Hemoglobin 8.4 L Hematocrit 28.4 L Mean Corpuscular Volume 85.0 Mean Corpuscular Hemoglobin 25.1 L Mean Corpuscular Hemoglobin Concent 29.6 L Red Cell Distribution Width 16.8 H Platelet Count 399 Mean Platelet Volume 8.9 Neutrophils % 70.9 Lymphocytes % 14.0 L Monocytes % 9.6 Eosinophils % 4.3 Basophils % 0.6 Nucleated Red Blood Cells % 0.0 Neutrophils # 11.6 H Lymphocytes # 2.3 Monocytes # 1.6 H Eosinophils # 0.7 H Basophils # 0.1 Nucleated Red Blood Cells # 0.0 Sodium Level 130 L Potassium Level 3.9 Chloride Level 95 L Carbon Dioxide Level 33 H Anion Gap 6 L Blood Urea Nitrogen 12 Creatinine 0.31 L Glucose Level 110 Calcium Level 7.6 L Medications Medications Current Medications Ondansetron HCl (Zofran Inj) 4 mg Q6 PRN IV NAUSEA AND/OR VOMITING; Start 09/26 at 22:30 Acetaminophen (Tylenol Tab) 650 mg Q6H PRN PO PAIN AND OR ELEVATED TEMP Last administered on 10/04/16 15:12; Admin Dose 650 MG; Start 09/26/16 at 23:00 Alprazolam (Xanax) 0.5 mg Q12 PRN PO ANXIETY Last administered on 09/29/16 04: 10; Admin Dose 0.5 MG; Start 09/26/16 at 23:00 Ascorbic Acid (Vitamin C) 500 mg BID PO Last administered on 10/04/16 08:54; Admin Dose 500 MG; Start 09/27/16 at 09:00 Atorvastatin Calcium (Lipitor) 20 mg QHS PO Last administered on 10/03/16 22: 07; Admin Dose 20 MG; Start 09/27/16 at 21:00 Diazepam (Valium) 10 mg DAILY PO Last administered on 10/04/16 08:54; Admin Dose 10 MG; Start 09/27/16 at 09:00 Docusate Sodium (Colace) 100 mg Q12H PRN PO CONSTIPATION; Start 09/26/16 at 23: 00 Duloxetine HCl (Cymbalta) 20 mg DAILY PO Last administered on 10/04/16 08:54; Admin Dose 20 MG; Start 09/27/16 at 09:00 Ferrous Sulfate (Ferrous Sulfate (Ec)) 325 mg BID PO Last administered on 08:54; Admin Dose 325 MG; Start 09/27/16 at 09:00 Gabapentin (Neurontin) 300 mg TID PO Last administered on 10/04/16 12:22; Admin Dose 300 MG; Start 09/27/16 at 09:00 Losartan Potassium (Cozaar) 50 mg DAILY PO Last administered on 10/04/16 08:54 ; Admin Dose 50 MG; Start 09/27/16 at 09:00 Zolpidem Tartrate (Ambien) 5 mg QHS PRN PO INSOMNIA Last administered on 01:36; Admin Dose 5 MG; Start 09/26/16 at 23:00 Collagenase (Santyl) 1 applic DAILY TOP Last administered on 10/04/16 08:56; Admin Dose 1 APPLIC; Start 09/27/16 at 09:00 Collagenase 1 applic 1 applic PRN PRN TOP SOILED OR DISLODGED DRESSING; Start 09/27/16 at 05:00 Sodium Chloride (NS) 1,000 ml @ 40 mls/hr Q24H IV Last administered on 17:51; Admin Dose 40 MLS/HR; Start 09/27/16 at 13:00 Lansoprazole (Prevacid) 30 mg DAILY@06 GTB Last administered on 10/04/16 05:43 ; Admin Dose 30 MG; Start 09/28/16 at 06:00 Metoprolol Tartrate (Lopressor) 25 mg BID PO Last administered on 10/04/16 08: 55; Admin Dose 25 MG; Start 09/27/16 at 21:00 Mupirocin (Bactroban) 1 applic BID TOP Last administered on 10/04/16 08:56; Admin Dose 1 APPLIC; Start 09/28/16 at 21:00 Cromolyn Sodium (Nasalcrom) 1 spray QID NASAL Last administered on 10/04/16 12 :22; Admin Dose 1 SPRAY; Start 09/29/16 at 11:02 Linezolid (Zyvox) 600 mg BID PO Last administered on 10/04/16 08:54; Admin Dose 600 MG; Start 09/29/16 at 21:00 Amikacin Sulfate (Amikacin Iv Per Pharmacy) AMIKACIN PER PHARMACY NOTE XX ; Start 09/29/16 at 15:30 Morphine Sulfate (Ms Contin (Er)) 60 mg Q6 PO Last administered on 10/04/16 12 :22; Admin Dose 60 MG; Start 10/01/16 at 18:00 Phenol (Cepastat Lozenge) 1 lozenge Q2H PRN MT SORE THROAT Last administered on 10/02/16 12:48; Admin Dose 1 LOZENGE; Start 10/01/16 at 19:00 IV Flush 10 ml 10 ml PRN PRN IV IV PROTOCOL; Start 10/02/16 at 19:00 Amikacin Sulfate/ Dextrose (Amikacin/D5W) 102.8 ml @ 102.8 mls/ hr Q24H IVPB Last administered on 10/04/16 08:55; Admin Dose 102.8 MLS/HR; Start 10/04/16 at 09:00 Lactobacillus Acidophilus (Florajen3 Capsule) 1 each TID PO Last administered on 10/04/16 15:12; Admin Dose 1 EACH; Start 10/03/16 at 21:00 RUBIN MAYEN NP Oct 04, 2016 15:40
--- NOTE | 2016-10-04 18:27 | CONS ---
Date/Time of Note Date/Time of Note DATE: 10/04/16 TIME: 18:23 Assessment/Plan Assessment/Plan Additional Assessment/Plan SIRS Intermittent hypotension Diastolic congestive heart failure, compensated Pulmonary hypertension Preserved ejection fraction Tricuspid valve regurgitation Lung cancer -Blood pressure trend with intermittent episodes of hypotension. We decreased dose of ARB and have holding parameters for antihypertensive medications. Consultation Date/Type/Reason Admit Date/Time Sep 26, 2016 at 20:07 Initial Consult Date Type of Consultation: cv 24 HR Interval Summary Free Text/Dictation Denies chest pain, dizziness. Shortness of breath is the same and slowly improving Exam/Review of Systems Vital Signs Vitals Vital Signs Date Time Temp Pulse Resp B/P Pulse Ox O2 Delivery O2 Flow Rate FiO2 10/04/16 10:42 Nasal Cannula 2.0 10/04/16 07:30 98.6 64 18 120/62 96 Intake and Output 10/03/16 10/03/16 10/04/16 15:00 23:00 07:00 Intake Total 1130 ml 1960 ml Output Total 900 ml 1800 ml Balance 230 ml 160 ml Exam No apparent distress Constitutional: alert, frail, oriented Head: normocephalic Respiratory: other (Coarse breath sounds bilaterally, no wheezing) Cardiovascular: other (S1-S2 heard), regular rate and rhythm Gastrointestinal: bowel sounds, non-tender, soft Extremities: other (No edema) Results Result Diagram: 10/04/16 0440 10/04/16 0440 Results 24 hrs Laboratory Tests Test 10/04/16 04:40 White Blood Count 16.3 H Red Blood Count 3.34 L Hemoglobin 8.4 L Hematocrit 28.4 L Mean Corpuscular Volume 85.0 Mean Corpuscular Hemoglobin 25.1 L Mean Corpuscular Hemoglobin Concent 29.6 L Red Cell Distribution Width 16.8 H Platelet Count 399 Mean Platelet Volume 8.9 Neutrophils % 70.9 Lymphocytes % 14.0 L Monocytes % 9.6 Eosinophils % 4.3 Basophils % 0.6 Nucleated Red Blood Cells % 0.0 Neutrophils # 11.6 H Lymphocytes # 2.3 Monocytes # 1.6 H Eosinophils # 0.7 H Basophils # 0.1 Nucleated Red Blood Cells # 0.0 Sodium Level 130 L Potassium Level 3.9 Chloride Level 95 L Carbon Dioxide Level 33 H Anion Gap 6 L Blood Urea Nitrogen 12 Creatinine 0.31 L Glucose Level 110 Calcium Level 7.6 L Medications Medications Current Medications Ondansetron HCl (Zofran Inj) 4 mg Q6 PRN IV NAUSEA AND/OR VOMITING; Start 09/26 at 22:30 Acetaminophen (Tylenol Tab) 650 mg Q6H PRN PO PAIN AND OR ELEVATED TEMP Last administered on 10/04/16 15:12; Admin Dose 650 MG; Start 09/26/16 at 23:00 Alprazolam (Xanax) 0.5 mg Q12 PRN PO ANXIETY Last administered on 09/29/16 04: 10; Admin Dose 0.5 MG; Start 09/26/16 at 23:00 Ascorbic Acid (Vitamin C) 500 mg BID PO Last administered on 10/04/16 08:54; Admin Dose 500 MG; Start 09/27/16 at 09:00 Atorvastatin Calcium (Lipitor) 20 mg QHS PO Last administered on 10/03/16 22: 07; Admin Dose 20 MG; Start 09/27/16 at 21:00 Diazepam (Valium) 10 mg DAILY PO Last administered on 10/04/16 08:54; Admin Dose 10 MG; Start 09/27/16 at 09:00 Docusate Sodium (Colace) 100 mg Q12H PRN PO CONSTIPATION; Start 09/26/16 at 23: 00 Duloxetine HCl (Cymbalta) 20 mg DAILY PO Last administered on 10/04/16 08:54; Admin Dose 20 MG; Start 09/27/16 at 09:00 Ferrous Sulfate (Ferrous Sulfate (Ec)) 325 mg BID PO Last administered on 08:54; Admin Dose 325 MG; Start 09/27/16 at 09:00 Gabapentin (Neurontin) 300 mg TID PO Last administered on 10/04/16 12:22; Admin Dose 300 MG; Start 09/27/16 at 09:00 Losartan Potassium (Cozaar) 50 mg DAILY PO Last administered on 10/04/16 08:54 ; Admin Dose 50 MG; Start 09/27/16 at 09:00 Zolpidem Tartrate (Ambien) 5 mg QHS PRN PO INSOMNIA Last administered on 01:36; Admin Dose 5 MG; Start 09/26/16 at 23:00 Collagenase (Santyl) 1 applic DAILY TOP Last administered on 10/04/16 08:56; Admin Dose 1 APPLIC; Start 09/27/16 at 09:00 Collagenase (Santyl) 1 applic PRN PRN TOP SOILED OR DISLODGED DRESSING; Start 09/27/16 at 05:00 Lansoprazole (Prevacid) 30 mg DAILY@06 GTB Last administered on 10/04/16 05:43 ; Admin Dose 30 MG; Start 09/28/16 at 06:00 Metoprolol Tartrate (Lopressor) 25 mg BID PO Last administered on 10/04/16 08: 55; Admin Dose 25 MG; Start 09/27/16 at 21:00 Mupirocin (Bactroban) 1 applic BID TOP Last administered on 10/04/16 08:56; Admin Dose 1 APPLIC; Start 09/28/16 at 21:00 Cromolyn Sodium (Nasalcrom) 1 spray QID NASAL Last administered on 10/04/16 17 :00; Admin Dose 1 SPRAY; Start 09/29/16 at 11:02 Linezolid (Zyvox) 600 mg BID PO Last administered on 10/04/16 08:54; Admin Dose 600 MG; Start 09/29/16 at 21:00 Amikacin Sulfate (Amikacin Iv Per Pharmacy) AMIKACIN PER PHARMACY NOTE XX ; Start 09/29/16 at 15:30 Morphine Sulfate (Ms Contin (Er)) 60 mg Q6 PO Last administered on 10/04/16 17 :00; Admin Dose 60 MG; Start 10/01/16 at 18:00 Phenol (Cepastat Lozenge) 1 lozenge Q2H PRN MT SORE THROAT Last administered on 10/02/16 12:48; Admin Dose 1 LOZENGE; Start 10/01/16 at 19:00 IV Flush 10 ml 10 ml PRN PRN IV IV PROTOCOL; Start 10/02/16 at 19:00 Amikacin Sulfate/ Dextrose (Amikacin/D5W) 102.8 ml @ 102.8 mls/ hr Q24H IVPB Last administered on 10/04/16 08:55; Admin Dose 102.8 MLS/HR; Start 10/04/16 at 09:00 Lactobacillus Acidophilus (Florajen3 Capsule) 1 each TID PO Last administered on 10/04/16 15:12; Admin Dose 1 EACH; Start 10/03/16 at 21:00 Artemio Tipton DO Oct 04, 2016 18:27
--- NOTE | 2016-10-04 19:59 | PN ---
Date/Time of Note Date/Time of Note DATE: 10/04/16 TIME: 19:58 Assessment/Plan VTE Prophylaxis VTE Prophylaxis Intervention: SCD's Lines/Catheters IV C[facility] Type (from [facility] PICC Line Central line still needed: Yes Urinary Cath still in place: Yes Reason Cath still needed: urinary retention Assessment/Plan Chief Complaint/Hosp Course ASSESSMENT AND PLAN: - Recurrent sepsis. - Polymicrobial urinary tract infection. - Left lung squamous cell carcinoma. - Chronic obstructive pulmonary disease. - Multiple decubitus ulcers with history of debridement. - Methicillin-resistant Staphylococcus aureus nares colonization. - Cachexia. - Dysphagia with G-tube placement - Chronic urinary retention. - Anemia of chronic disease. Further recommendations based on clinical course. Plan of care discussed with Dr. Dozier. Problems: Subjective 24 Hr Interval Summary Free Text/Dictation No acute events per RN, patient looks comfortable. Exam/Review of Systems Vital Signs Vitals Vital Signs Date Time Temp Pulse Resp B/P Pulse Ox O2 Delivery O2 Flow Rate FiO2 10/04/16 18:58 2.0 10/04/16 10:42 Nasal Cannula 10/04/16 07:30 98.6 64 18 120/62 96 Intake and Output 10/03/16 10/03/16 10/04/16 15:00 23:00 07:00 Intake Total 1130 ml 1960 ml Output Total 900 ml 1800 ml Balance 230 ml 160 ml Exam Constitutional: alert, oriented Psych: no complaints Head: atraumatic, normocephalic Eyes: nl conjunctiva ENMT: nl external ears & nose Neck: non-tender, supple Respiratory: clear to auscultation, normal air movement Cardiovascular: nl pulses, regular rate and rhythm Gastrointestinal: non-tender, other (G-tube), soft Musculoskeletal: nl extremities to inspection Extremities: normal pulses Neurological: [employer] II-XII intact Skin: other (Multiple decubitus ulcers including bilateral buttocks, lower extremities) Results Result Diagram: 10/04/1643910/04/16439 Results 24 hrs Laboratory Tests Test 10/04/16 04:40 White Blood Count 16.3 H Red Blood Count 3.34 L Hemoglobin 8.4 L Hematocrit 28.4 L Mean Corpuscular Volume 85.0 Mean Corpuscular Hemoglobin 25.1 L Mean Corpuscular Hemoglobin Concent 29.6 L Red Cell Distribution Width 16.8 H Platelet Count 399 Mean Platelet Volume 8.9 Neutrophils % 70.9 Lymphocytes % 14.0 L Monocytes % 9.6 Eosinophils % 4.3 Basophils % 0.6 Nucleated Red Blood Cells % 0.0 Neutrophils # 11.6 H Lymphocytes # 2.3 Monocytes # 1.6 H Eosinophils # 0.7 H Basophils # 0.1 Nucleated Red Blood Cells # 0.0 Sodium Level 130 L Potassium Level 3.9 Chloride Level 95 L Carbon Dioxide Level 33 H Anion Gap 6 L Blood Urea Nitrogen 12 Creatinine 0.31 L Glucose Level 110 Calcium Level 7.6 L Medications Medications Current Medications Ondansetron HCl (Zofran Inj) 4 mg Q6 PRN IV NAUSEA AND/OR VOMITING; Start 09/26 at 22:30 Acetaminophen (Tylenol Tab) 650 mg Q6H PRN PO PAIN AND OR ELEVATED TEMP Last administered on 10/04/16 15:12; Admin Dose 650 MG; Start 09/26/16 at 23:00 Alprazolam (Xanax) 0.5 mg Q12 PRN PO ANXIETY Last administered on 09/29/16 04: 10; Admin Dose 0.5 MG; Start 09/26/16 at 23:00 Ascorbic Acid (Vitamin C) 500 mg BID PO Last administered on 10/04/16 08:54; Admin Dose 500 MG; Start 09/27/16 at 09:00 Atorvastatin Calcium (Lipitor) 20 mg QHS PO Last administered on 10/03/16 22: 07; Admin Dose 20 MG; Start 09/27/16 at 21:00 Diazepam (Valium) 10 mg DAILY PO Last administered on 10/04/16 08:54; Admin Dose 10 MG; Start 09/27/16 at 09:00 Docusate Sodium (Colace) 100 mg Q12H PRN PO CONSTIPATION; Start 09/26/16 at 23: 00 Duloxetine HCl (Cymbalta) 20 mg DAILY PO Last administered on 10/04/16 08:54; Admin Dose 20 MG; Start 09/27/16 at 09:00 Ferrous Sulfate (Ferrous Sulfate (Ec)) 325 mg BID PO Last administered on 08:54; Admin Dose 325 MG; Start 09/27/16 at 09:00 Gabapentin (Neurontin) 300 mg TID PO Last administered on 10/04/16 12:22; Admin Dose 300 MG; Start 09/27/16 at 09:00 Zolpidem Tartrate (Ambien) 5 mg QHS PRN PO INSOMNIA Last administered on 01:36; Admin Dose 5 MG; Start 09/26/16 at 23:00 Collagenase (Santyl) 1 applic DAILY TOP Last administered on 10/04/16 08:56; Admin Dose 1 APPLIC; Start 09/27/16 at 09:00 Collagenase (Santyl) 1 applic PRN PRN TOP SOILED OR DISLODGED DRESSING; Start 09/27/16 at 05:00 Lansoprazole (Prevacid) 30 mg DAILY@06 GTB Last administered on 10/04/16 05:43 ; Admin Dose 30 MG; Start 09/28/16 at 06:00 Metoprolol Tartrate (Lopressor) 25 mg BID PO Last administered on 10/04/16 08: 55; Admin Dose 25 MG; Start 09/27/16 at 21:00 Mupirocin (Bactroban) 1 applic BID TOP Last administered on 10/04/16 08:56; Admin Dose 1 APPLIC; Start 09/28/16 at 21:00 Cromolyn Sodium (Nasalcrom) 1 spray QID NASAL Last administered on 10/04/16 17 :00; Admin Dose 1 SPRAY; Start 09/29/16 at 11:02 Linezolid (Zyvox) 600 mg BID PO Last administered on 10/04/16 08:54; Admin Dose 600 MG; Start 09/29/16 at 21:00 Amikacin Sulfate (Amikacin Iv Per Pharmacy) AMIKACIN PER PHARMACY NOTE XX ; Start 09/29/16 at 15:30 Morphine Sulfate (Ms Contin (Er)) 60 mg Q6 PO Last administered on 10/04/16 17 :00; Admin Dose 60 MG; Start 10/01/16 at 18:00 Phenol (Cepastat Lozenge) 1 lozenge Q2H PRN MT SORE THROAT Last administered on 10/02/16 12:48; Admin Dose 1 LOZENGE; Start 10/01/16 at 19:00 IV Flush 10 ml 10 ml PRN PRN IV IV PROTOCOL; Start 10/02/16 at 19:00 Amikacin Sulfate/ Dextrose (Amikacin/D5W) 102.8 ml @ 102.8 mls/ hr Q24H IVPB Last administered on 10/04/16 08:55; Admin Dose 102.8 MLS/HR; Start 10/04/16 at 09:00 Lactobacillus Acidophilus (Florajen3 Capsule) 1 each TID PO Last administered on 10/04/16 15:12; Admin Dose 1 EACH; Start 10/03/16 at 21:00 Losartan Potassium (Cozaar) 25 mg DAILY PO ; Start 10/05/16 at 09:00 REBECCA ISLAS Oct 04, 2016 19:59
[2016-10-04] MEDS: ATORVASTATIN 20 MG TAB PO SCH (20:29)
[2016-10-04] MEDS: ALPRAZOLAM 0.5 MG TAB PO PRN (20:29)
[2016-10-04 23:02] VITALS: BP 98/68; RESP 18
[2016-10-05] MEDS: ZOLPIDEM 5 MG TAB PO PRN (02:35)
[2016-10-05] MEDS: ACETAMINOPHEN 325 MG TAB PO PRN ×3 (02:35→15:12)
[2016-10-05 05:21] LABS: ADD SCAN DIFF NO
[2016-10-05 05:35] LABS: BASOPHIL # 0.1 10^3/ul (0.0-0.1); BASOPHILS % 0.7 % (0.0-2.0); EOSINOPHILS # 0.7 10^3/ul (0.0-0.5); EOSINOPHILS % 4.8 % (0.0-7.0); HEMATOCRIT 28.4 % (37.0-47.0); HEMOGLOBIN 8.5 g/dl (12.0-16.0); LYMPHOCYTES # 2.1 10^3/ul (0.8-2.9); MEAN CORPUSCULAR HEMOGLOBIN 25.8 pg (29.0-33.0); MEAN CORPUSCULAR HGB CONC 29.9 g/dl (32.0-37.0); MEAN CORPUSCULAR VOLUME 86.1 fl (82.0-101.0); MEAN PLATELET VOLUME 8.9 fl (7.4-10.4); MONOCYTE # 1.4 10^3/ul (0.3-0.9); MONOCYTES % 9.5 % (0.0-11.0); NEUTROPHIL # 10.5 10^3/ul (1.6-7.5); NEUTROPHILS % 70.3 % (39.0-77.0); PLATELET COUNT 427 10^3/UL (140-415); RED CELL DISTRIBUTION WIDTH 16.8 % (11.5-14.5)
[2016-10-05] MEDS: LEVOTHYROXINE 125 MCG TAB PO SCH (05:38)
[2016-10-05] MEDS: morphine (ER) 30 MG TAB PO SCH ×4 (05:38→23:47)
[2016-10-05] MEDS: LANSOPRAZOLE 30 MG CAP GTB SCH (05:38)
[2016-10-05 05:53] LABS: POTASSIUM 3.8 mmol/L (3.5-5.1)
[2016-10-05 05:56] LABS: CREATININE 0.34 mg/dl (0.44-1.00)
[2016-10-05 07:45] VITALS: BP 139/72; RESP 20
[2016-10-05] MEDS: CROMOLYN 4% 26ML NAS INH NASAL SCH ×4 (08:59→21:34)
[2016-10-05] MEDS: DULOXETINE 20 MG CAP DR PO SCH (08:59)
[2016-10-05] MEDS: GABAPENTIN 300 MG CAP PO SCH ×3 (09:00→21:31)
[2016-10-05] MEDS: FERROUS SULFATE (EC) 325 MG TAB PO SCH ×2 (09:00→21:33)
[2016-10-05] MEDS: ZYVOX 600 MG TAB PO SCH ×2 (09:01→21:32)
[2016-10-05] MEDS: DIAZEPAM 5 MG TAB PO SCH (09:01)
[2016-10-05] MEDS: ASCORBIC ACID 500 MG TAB PO SCH ×2 (09:01→21:33)
[2016-10-05] MEDS: MUPIROCIN 2% 22 GM OINT TOP SCH ×2 (09:02→21:34)
[2016-10-05] MEDS: COLLAGENASE 30 GM TUBE TOP SCH (09:02)
[2016-10-05] MEDS: L ACIDOPHIL/B LACTIS/B LONGUM CAPSULE PO SCH ×3 (09:05→21:30)
[2016-10-05] MEDS: AMIKACIN 700 MG in DEXTROSE 5% 100 ML IVPB SCH (09:05)
[2016-10-05] MEDS: METOPROLOL 50 MG TAB PO SCH ×2 (09:08→21:00)
[2016-10-05] MEDS: LOSARTAN 25 MG TAB PO SCH (09:09)
--- NOTE | 2016-10-05 15:05 | CONS ---
Date/Time of Note Date/Time of Note DATE: 10/05/16 TIME: 15:03 Assessment/Plan Assessment/Plan Chief Complaint/Hosp Course SUBJECTIVE: No acute changes, awake, asking for coffee and apple juice, tolerates tube feedings, no fevers. MICROBIOLOGY: A urine culture growing Proteus mirabilis and Klebsiella pneumoniae, both susceptible to amikacin and Zosyn. Wound culture growing Enterococcus, Klebsiella, extended-spectrum beta-lactamase, Citrobacter. INDWELLINGS: PEG, George. ANTIMICROBIALS: 1. Amikacin 2. Topical Bactroban to nares. 3. Zyvox. PHYSICAL EXAMINATION GENERAL: Cachectic, elderly, woman who is in no distress. HEENT: Head atraumatic, normocephalic. Sclerae are anicteric. Buccal mucosa dry. NECK: Supple. CHEST: Rise symmetrical. Breath sounds diminished to bases. HEART: S1, S2. ABDOMEN: Soft, bowel tones present. EXTREMITIES: Without cyanosis, edema. ASSESSMENT 1. Recurrent sepsis. 2. Polymicrobial urinary tract infection. 3. Unstageable sacral decubitus. 4. Methicillin-resistant Staphylococcus aureus nares colonization. 5. Cachexia. 6. Lung cancer. 7. ALLERGY TO PENICILLIN. 8. History of Clostridium difficile colitis. 9. Abnormal LFT PLAN: Clinically unchanged. Continue present care, abx, Bactroban to nares. ?repeat swallow eval DW staff Problems: Consultation Date/Type/Reason Admit Date/Time Sep 26, 2016 at 20:07 Type of Consultation: id Exam/Review of Systems Vital Signs Vitals Vital Signs Date Time Temp Pulse Resp B/P Pulse Ox O2 Delivery O2 Flow Rate FiO2 10/05/16 12:28 Nasal Cannula 2.0 10/05/16 07:45 98.8 102 20 139/72 96 Intake and Output 10/04/16 10/04/16 10/05/16 15:00 23:00 07:00 Intake Total 102.8 ml 1320 ml 1160 ml Output Total 800 ml 700 ml Balance 102.8 ml 520 ml 460 ml Results Result Diagram: 10/05/16 0450 10/05/16 0436 Results 24 hrs Laboratory Tests Test 10/05/16 04:36 10/05/16 04:50 Sodium Level 131 L Potassium Level 3.8 Chloride Level 90 L Carbon Dioxide Level 34 H Anion Gap 11 Blood Urea Nitrogen 14 Creatinine 0.34 L Glucose Level 113 Calcium Level 8.0 L White Blood Count 15.0 H Red Blood Count 3.30 L Hemoglobin 8.5 L Hematocrit 28.4 L Mean Corpuscular Volume 86.1 Mean Corpuscular Hemoglobin 25.8 L Mean Corpuscular Hemoglobin Concent 29.9 L Red Cell Distribution Width 16.8 H Platelet Count 427 H Mean Platelet Volume 8.9 Neutrophils % 70.3 Lymphocytes % 14.0 L Monocytes % 9.5 Eosinophils % 4.8 Basophils % 0.7 Nucleated Red Blood Cells % 0.0 Neutrophils # 10.5 H Lymphocytes # 2.1 Monocytes # 1.4 H Eosinophils # 0.7 H Basophils # 0.1 Nucleated Red Blood Cells # 0.0 Medications Medications Current Medications Ondansetron HCl (Zofran Inj) 4 mg Q6 PRN IV NAUSEA AND/OR VOMITING; Start 09/26 at 22:30 Acetaminophen (Tylenol Tab) 650 mg Q6H PRN PO PAIN AND OR ELEVATED TEMP Last administered on 10/05/16 09:01; Admin Dose 650 MG; Start 09/26/16 at 23:00 Alprazolam (Xanax) 0.5 mg Q12 PRN PO ANXIETY Last administered on 10/04/16 20: 29; Admin Dose 0.5 MG; Start 09/26/16 at 23:00 Ascorbic Acid (Vitamin C) 500 mg BID PO Last administered on 10/05/16 09:01; Admin Dose 500 MG; Start 09/27/16 at 09:00 Atorvastatin Calcium (Lipitor) 20 mg QHS PO Last administered on 10/04/16 20: 29; Admin Dose 20 MG; Start 09/27/16 at 21:00 Diazepam (Valium) 10 mg DAILY PO Last administered on 10/05/16 09:01; Admin Dose 10 MG; Start 09/27/16 at 09:00 Docusate Sodium (Colace) 100 mg Q12H PRN PO CONSTIPATION; Start 09/26/16 at 23: 00 Duloxetine HCl (Cymbalta) 20 mg DAILY PO Last administered on 10/05/16 08:59; Admin Dose 20 MG; Start 09/27/16 at 09:00 Ferrous Sulfate (Ferrous Sulfate (Ec)) 325 mg BID PO Last administered on 09:00; Admin Dose 325 MG; Start 09/27/16 at 09:00 Gabapentin (Neurontin) 300 mg TID PO Last administered on 10/05/16 11:13; Admin Dose 300 MG; Start 09/27/16 at 09:00 Zolpidem Tartrate (Ambien) 5 mg QHS PRN PO INSOMNIA Last administered on 02:35; Admin Dose 5 MG; Start 09/26/16 at 23:00 Collagenase (Santyl) 1 applic DAILY TOP Last administered on 10/05/16 09:02; Admin Dose 1 APPLIC; Start 09/27/16 at 09:00 Collagenase (Santyl) 1 applic PRN PRN TOP SOILED OR DISLODGED DRESSING; Start 09/27/16 at 05:00 Lansoprazole (Prevacid) 30 mg DAILY@06 GTB Last administered on 10/05/16 05:38 ; Admin Dose 30 MG; Start 09/28/16 at 06:00 Metoprolol Tartrate (Lopressor) 25 mg BID PO Last administered on 10/05/16 09: 08; Admin Dose 25 MG; Start 09/27/16 at 21:00 Mupirocin (Bactroban) 1 applic BID TOP Last administered on 10/05/16 09:02; Admin Dose 1 APPLIC; Start 09/28/16 at 21:00 Cromolyn Sodium (Nasalcrom) 1 spray QID NASAL Last administered on 10/05/16 13 :30; Admin Dose 1 SPRAY; Start 09/29/16 at 11:02 Linezolid (Zyvox) 600 mg BID PO Last administered on 10/05/16 09:01; Admin Dose 600 MG; Start 09/29/16 at 21:00 Amikacin Sulfate (Amikacin Iv Per Pharmacy) AMIKACIN PER PHARMACY NOTE XX ; Start 09/29/16 at 15:30 Morphine Sulfate (Ms Contin (Er)) 60 mg Q6 PO Last administered on 10/05/16 11 :14; Admin Dose 60 MG; Start 10/01/16 at 18:00 Phenol (Cepastat Lozenge) 1 lozenge Q2H PRN MT SORE THROAT Last administered on 10/02/16 12:48; Admin Dose 1 LOZENGE; Start 10/01/16 at 19:00 IV Flush 10 ml 10 ml PRN PRN IV IV PROTOCOL; Start 10/02/16 at 19:00 Amikacin Sulfate/ Dextrose (Amikacin/D5W) 102.8 ml @ 102.8 mls/ hr Q24H IVPB Last administered on 10/05/16 09:05; Admin Dose 102.8 MLS/HR; Start 10/04/16 at 09:00 Lactobacillus Acidophilus (Florajen3 Capsule) 1 each TID PO Last administered on 10/05/16 13:30; Admin Dose 1 EACH; Start 10/03/16 at 21:00 Losartan Potassium (Cozaar) 25 mg DAILY PO Last administered on 10/05/16 09:09 ; Admin Dose 25 MG; Start 10/05/16 at 09:00 RUBIN MAYEN NP Oct 05, 2016 15:05
--- NOTE | 2016-10-05 17:56 | PN ---
Date/Time of Note Date/Time of Note DATE: 10/05/16 TIME: 17:54 Assessment/Plan VTE Prophylaxis VTE Prophylaxis Intervention: other Lines/Catheters IV Catheter Type (from Nrs): PICC Line Central line still needed: Yes Urinary Cath still in place: Yes Reason Cath still needed: urinary retention Assessment/Plan Assessment/Plan - elevated LFTs - GI consult- Dr Holm was notified - patient is asymptomatic - am LFTs - hypotension- resolved - Recurrent sepsis sec toSIRS - per ID- on vanco/aztreonam - Polymicrobial urinary tract infection. - Left lung squamous cell carcinoma. - Chronic obstructive pulmonary disease- no Shortness of breath noted - Multiple decubitus ulcers with history of debridement. - Methicillin-resistant Staphylococcus aureus nares colonization. - Cachexia. - Dysphagia with G-tube placement - Chronic urinary retention. - Anemia of chronic disease. Further recommendations based on clinical course. Plan of care discussed with Dr. Dozier. Subjective 24 Hr Interval Summary Free Text/Dictation nad, afebrile, feels better, wants to sleep, dw staff. Constitutional: other (cachexic), requiring O2 ENT: no complaints Respiratory: no complaints Cardiovascular: no complaints Gastrointestinal: no complaints Exam/Review of Systems Vital Signs Vitals Vital Signs Date Time Temp Pulse Resp B/P Pulse Ox O2 Delivery O2 Flow Rate FiO2 10/05/16 17:45 2.0 10/05/16 12:28 Nasal Cannula 10/05/16 07:45 98.8 102 20 139/72 96 Intake and Output 10/04/16 10/04/16 10/05/16 15:00 23:00 07:00 Intake Total 102.8 ml 1320 ml 1160 ml Output Total 800 ml 700 ml Balance 102.8 ml 520 ml 460 ml Exam Constitutional: alert, well developed Psych: nl mood/affect Eyes: EOMI, nl sclera ENMT: nl external ears & nose Neck: non-tender Respiratory: clear to auscultation Cardiovascular: nl pulses Gastrointestinal: non-tender, soft Musculoskeletal: other Extremities: normal pulses Neurological: other Skin: other Lymph: nontender Results Result Diagram: 10/05/16 0450 10/05/16 0436 Results 24 hrs Laboratory Tests Test 10/05/16 04:36 10/05/16 04:50 Sodium Level 131 L Potassium Level 3.8 Chloride Level 90 L Carbon Dioxide Level 34 H Anion Gap 11 Blood Urea Nitrogen 14 Creatinine 0.34 L Glucose Level 113 Calcium Level 8.0 L White Blood Count 15.0 H Red Blood Count 3.30 L Hemoglobin 8.5 L Hematocrit 28.4 L Mean Corpuscular Volume 86.1 Mean Corpuscular Hemoglobin 25.8 L Mean Corpuscular Hemoglobin Concent 29.9 L Red Cell Distribution Width 16.8 H Platelet Count 427 H Mean Platelet Volume 8.9 Neutrophils % 70.3 Lymphocytes % 14.0 L Monocytes % 9.5 Eosinophils % 4.8 Basophils % 0.7 Nucleated Red Blood Cells % 0.0 Neutrophils # 10.5 H Lymphocytes # 2.1 Monocytes # 1.4 H Eosinophils # 0.7 H Basophils # 0.1 Nucleated Red Blood Cells # 0.0 Medications Medications Current Medications Ondansetron HCl (Zofran Inj) 4 mg Q6 PRN IV NAUSEA AND/OR VOMITING; Start 09/26 at 22:30 Acetaminophen (Tylenol Tab) 650 mg Q6H PRN PO PAIN AND OR ELEVATED TEMP Last administered on 10/05/16 15:12; Admin Dose 650 MG; Start 09/26/16 at 23:00 Alprazolam (Xanax) 0.5 mg Q12 PRN PO ANXIETY Last administered on 10/04/16 20: 29; Admin Dose 0.5 MG; Start 09/26/16 at 23:00 Ascorbic Acid (Vitamin C) 500 mg BID PO Last administered on 10/05/16 09:01; Admin Dose 500 MG; Start 09/27/16 at 09:00 Atorvastatin Calcium (Lipitor) 20 mg QHS PO Last administered on 10/04/16 20: 29; Admin Dose 20 MG; Start 09/27/16 at 21:00 Diazepam (Valium) 10 mg DAILY PO Last administered on 10/05/16 09:01; Admin Dose 10 MG; Start 09/27/16 at 09:00 Docusate Sodium (Colace) 100 mg Q12H PRN PO CONSTIPATION; Start 09/26/16 at 23: 00 Duloxetine HCl (Cymbalta) 20 mg DAILY PO Last administered on 10/05/16 08:59; Admin Dose 20 MG; Start 09/27/16 at 09:00 Ferrous Sulfate (Ferrous Sulfate (Ec)) 325 mg BID PO Last administered on 09:00; Admin Dose 325 MG; Start 09/27/16 at 09:00 Gabapentin (Neurontin) 300 mg TID PO Last administered on 10/05/16 11:13; Admin Dose 300 MG; Start 09/27/16 at 09:00 Zolpidem Tartrate (Ambien) 5 mg QHS PRN PO INSOMNIA Last administered on 02:35; Admin Dose 5 MG; Start 09/26/16 at 23:00 Collagenase (Santyl) 1 applic DAILY TOP Last administered on 10/05/16 09:02; Admin Dose 1 APPLIC; Start 09/27/16 at 09:00 Collagenase (Santyl) 1 applic PRN PRN TOP SOILED OR DISLODGED DRESSING; Start 09/27/16 at 05:00 Lansoprazole (Prevacid) 30 mg DAILY@06 GTB Last administered on 10/05/16 05:38 ; Admin Dose 30 MG; Start 09/28/16 at 06:00 Metoprolol Tartrate (Lopressor) 25 mg BID PO Last administered on 10/05/16 09: 08; Admin Dose 25 MG; Start 09/27/16 at 21:00 Mupirocin (Bactroban) 1 applic BID TOP Last administered on 10/05/16 09:02; Admin Dose 1 APPLIC; Start 09/28/16 at 21:00 Cromolyn Sodium (Nasalcrom) 1 spray QID NASAL Last administered on 10/05/16 17 :16; Admin Dose 1 SPRAY; Start 09/29/16 at 11:02 Linezolid (Zyvox) 600 mg BID PO Last administered on 10/05/16 09:01; Admin Dose 600 MG; Start 09/29/16 at 21:00 Amikacin Sulfate (Amikacin Iv Per Pharmacy) AMIKACIN PER PHARMACY NOTE XX ; Start 09/29/16 at 15:30 Morphine Sulfate (Ms Contin (Er)) 60 mg Q6 PO Last administered on 10/05/16 17 :16; Admin Dose 60 MG; Start 10/01/16 at 18:00 Phenol (Cepastat Lozenge) 1 lozenge Q2H PRN MT SORE THROAT Last administered on 10/02/16 12:48; Admin Dose 1 LOZENGE; Start 10/01/16 at 19:00 IV Flush 10 ml 10 ml PRN PRN IV IV PROTOCOL; Start 10/02/16 at 19:00 Amikacin Sulfate/ Dextrose (Amikacin/D5W) 102.8 ml @ 102.8 mls/ hr Q24H IVPB Last administered on 10/05/16 09:05; Admin Dose 102.8 MLS/HR; Start 10/04/16 at 09:00 Lactobacillus Acidophilus (Florajen3 Capsule) 1 each TID PO Last administered on 10/05/16 13:30; Admin Dose 1 EACH; Start 10/03/16 at 21:00 Losartan Potassium (Cozaar) 25 mg DAILY PO Last administered on 10/05/16 09:09 ; Admin Dose 25 MG; Start 10/05/16 at 09:00 VIKASH CASTANEDA Oct 05, 2016 17:56
[2016-10-05 20:00] VITALS: BP 94/60; RESP 16
[2016-10-05] MEDS: ALBUTEROL/IPRATROPIUM (NEB) 3 ML AMP NEB PRN (21:24)
[2016-10-05] MEDS: ATORVASTATIN 20 MG TAB PO SCH (21:33)
[2016-10-06] MEDS: ACETAMINOPHEN 325 MG TAB PO PRN ×2 (03:17→14:52)
[2016-10-06 05:24] LABS: ADD SCAN DIFF NO
[2016-10-06 05:36] LABS: ABNORMAL IP MESSAGE 1; BASOPHIL # 0.1 10^3/ul (0.0-0.1); BASOPHILS % 0.5 % (0.0-2.0); EOSINOPHILS # 0.5 10^3/ul (0.0-0.5); EOSINOPHILS % 3.4 % (0.0-7.0); HEMATOCRIT 27.2 % (37.0-47.0); HEMOGLOBIN 8.2 g/dl (12.0-16.0); LYMPHOCYTES # 1.9 10^3/ul (0.8-2.9); LYMPHOCYTES % 12.5 % (15.0-51.0); MEAN CORPUSCULAR HEMOGLOBIN 25.5 pg (29.0-33.0); MEAN CORPUSCULAR HGB CONC 30.1 g/dl (32.0-37.0); MEAN CORPUSCULAR VOLUME 84.7 fl (82.0-101.0); MEAN PLATELET VOLUME 8.6 fl (7.4-10.4); MONOCYTE # 1.6 10^3/ul (0.3-0.9); MONOCYTES % 10.2 % (0.0-11.0); NEUTROPHIL # 11.2 10^3/ul (1.6-7.5); NEUTROPHILS % 72.8 % (39.0-77.0); PLATELET COUNT 406 10^3/UL (140-415); RED BLOOD COUNT 3.21 10^6/ul (4.20-5.40); RED CELL DISTRIBUTION WIDTH 16.8 % (11.5-14.5); WHITE BLOOD COUNT 15.4 10^3/ul (4.8-10.8)
[2016-10-06 05:57] LABS: CREATININE 0.32 mg/dl (0.44-1.00); POTASSIUM 4.2 mmol/L (3.5-5.1)
[2016-10-06] MEDS: LANSOPRAZOLE 30 MG CAP GTB SCH (06:08)
[2016-10-06] MEDS: morphine (ER) 30 MG TAB PO SCH ×4 (06:08→23:54)
[2016-10-06 09:00] VITALS: BP 96/65; PULSE 93
[2016-10-06] MEDS: COLLAGENASE 30 GM TUBE TOP SCH (09:00)
[2016-10-06] MEDS: CROMOLYN 4% 26ML NAS INH NASAL SCH ×4 (09:00→21:00)
[2016-10-06] MEDS: MUPIROCIN 2% 22 GM OINT TOP SCH ×2 (09:00→21:00)
[2016-10-06] MEDS: LOSARTAN 25 MG TAB PO SCH (09:00)
[2016-10-06] MEDS: METOPROLOL 50 MG TAB PO SCH (09:00)
[2016-10-06] MEDS: LEVOTHYROXINE 125 MCG TAB PO SCH (10:27)
[2016-10-06] MEDS: ASCORBIC ACID 500 MG TAB PO SCH ×2 (10:27→21:01)
[2016-10-06] MEDS: DULOXETINE 20 MG CAP DR PO SCH (10:27)
[2016-10-06] MEDS: ZYVOX 600 MG TAB PO SCH ×2 (10:28→21:02)
[2016-10-06] MEDS: FERROUS SULFATE (EC) 325 MG TAB PO SCH ×2 (10:28→21:01)
[2016-10-06] MEDS: DIAZEPAM 5 MG TAB PO SCH (10:28)
[2016-10-06] MEDS: GABAPENTIN 300 MG CAP PO SCH ×3 (10:29→21:01)
[2016-10-06] MEDS: L ACIDOPHIL/B LACTIS/B LONGUM CAPSULE PO SCH ×3 (10:35→21:01)
[2016-10-06] MEDS: AMIKACIN 700 MG in DEXTROSE 5% 100 ML IVPB SCH (10:35)
--- NOTE | 2016-10-06 12:22 | PN ---
Date/Time of Note Date/Time of Note DATE: 10/06/16 TIME: 12:15 Assessment/Plan VTE Prophylaxis VTE Prophylaxis Intervention: SCD's Lines/Catheters IV Catheter Type (from Nrs): PICC Line Central line still needed: Yes Urinary Cath still in place: Yes Reason Cath still needed: urinary retention Assessment/Plan Chief Complaint/Hosp Course ASSESSMENT AND PLAN: - Recurrent sepsis, resolving. Dr. Coleman is following an infection disease consultation. Continue antibiotics per ID. - Polymicrobial urinary tract infection. - Left lung squamous cell carcinoma. Patient is not a candidate for chemotherapy. - Chronic obstructive pulmonary disease. Continue breathing treatment. - Multiple decubitus ulcers with history of debridement. Continue current wound care. - Methicillin-resistant Staphylococcus aureus nares colonization. - Cachexia. Optimize nutrition. - Dysphagia with G-tube placement. Continue G-tube feeding. Aspiration precaution. - Chronic urinary retention. - Hypothyroidism. TSH is within normal limits. Continue Synthroid. - Anemia of chronic disease. Further recommendations based on clinical course. Plan of care discussed with Dr. Dozier. Problems: Subjective 24 Hr Interval Summary Free Text/Dictation Patient is awake alert, no acute distress. Exam/Review of Systems Vital Signs Vitals Vital Signs Date Time Temp Pulse Resp B/P Pulse Ox O2 Delivery O2 Flow Rate FiO2 10/06/16 09:00 93 96/65 10/05/16 21:24 98 3.0 10/05/16 21:24 18 Nasal Cannula 10/05/16 20:00 98.9 Intake and Output 10/05/16 10/05/16 10/06/16 15:00 23:00 07:00 Intake Total 920 ml 920 ml Output Total 1400 ml 1000 ml Balance -480 ml -80 ml Exam Constitutional: alert, oriented Psych: no complaints Head: atraumatic, normocephalic Eyes: nl conjunctiva ENMT: nl external ears & nose Neck: non-tender, supple Respiratory: clear to auscultation, normal air movement Cardiovascular: nl pulses, regular rate and rhythm Gastrointestinal: non-tender, other (G-tube), soft Musculoskeletal: nl extremities to inspection Extremities: normal pulses Neurological: INSEMINATOR II-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 Results Result Diagram: 10/06/165 10/06/16434 Results 24 hrs Laboratory Tests Test 10/06/16 04:35 White Blood Count 15.4 H Red Blood Count 3.21 L Hemoglobin 8.2 L Hematocrit 27.2 L Mean Corpuscular Volume 84.7 Mean Corpuscular Hemoglobin 25.5 L Mean Corpuscular Hemoglobin Concent 30.1 L Red Cell Distribution Width 16.8 H Platelet Count 406 Mean Platelet Volume 8.6 Neutrophils % 72.8 Lymphocytes % 12.5 L Monocytes % 10.2 Eosinophils % 3.4 Basophils % 0.5 Nucleated Red Blood Cells % 0.0 Neutrophils # 11.2 H Lymphocytes # 1.9 Monocytes # 1.6 H Eosinophils # 0.5 Basophils # 0.1 Nucleated Red Blood Cells # 0.0 Sodium Level 129 L Potassium Level 4.2 Chloride Level 90 L Carbon Dioxide Level 32 H Anion Gap 11 Blood Urea Nitrogen 14 Creatinine 0.32 L Glucose Level 122 Calcium Level 8.0 L Medications Medications Current Medications Ondansetron HCl (Zofran Inj) 4 mg Q6 PRN IV NAUSEA AND/OR VOMITING; Start 09/26 at 22:30 Acetaminophen (Tylenol Tab) 650 mg Q6H PRN PO PAIN AND OR ELEVATED TEMP Last administered on 10/06/16 03:17; Admin Dose 650 MG; Start 09/26/16 at 23:00 Alprazolam (Xanax) 0.5 mg Q12 PRN PO ANXIETY Last administered on 10/04/16 20: 29; Admin Dose 0.5 MG; Start 09/26/16 at 23:00 Ascorbic Acid (Vitamin C) 500 mg BID PO Last administered on 10/06/16 10:27; Admin Dose 500 MG; Start 09/27/16 at 09:00 Atorvastatin Calcium (Lipitor) 20 mg QHS PO Last administered on 10/05/16 21: 33; Admin Dose 20 MG; Start 09/27/16 at 21:00 Diazepam (Valium) 10 mg DAILY PO Last administered on 10/06/16 10:28; Admin Dose 10 MG; Start 09/27/16 at 09:00 Docusate Sodium (Colace) 100 mg Q12H PRN PO CONSTIPATION; Start 09/26/16 at 23: 00 Duloxetine HCl (Cymbalta) 20 mg DAILY PO Last administered on 10/06/16 10:27; Admin Dose 20 MG; Start 09/27/16 at 09:00 Ferrous Sulfate (Ferrous Sulfate (Ec)) 325 mg BID PO Last administered on 10:28; Admin Dose 325 MG; Start 09/27/16 at 09:00 Gabapentin (Neurontin) 300 mg TID PO Last administered on 10/06/16 10:29; Admin Dose 300 MG; Start 09/27/16 at 09:00 Zolpidem Tartrate (Ambien) 5 mg QHS PRN PO INSOMNIA Last administered on 02:35; Admin Dose 5 MG; Start 09/26/16 at 23:00 Collagenase (Santyl) 1 applic DAILY TOP Last administered on 10/06/16 09:00; Admin Dose 1 APPLIC; Start 09/27/16 at 09:00 Collagenase (Santyl) 1 applic PRN PRN TOP SOILED OR DISLODGED DRESSING; Start 09/27/16 at 05:00 Lansoprazole (Prevacid) 30 mg DAILY@06 GTB Last administered on 10/06/16 06:08 ; Admin Dose 30 MG; Start 09/28/16 at 06:00 Metoprolol Tartrate (Lopressor) 25 mg BID PO Last administered on 10/05/16 09: 08; Admin Dose 25 MG; Start 09/27/16 at 21:00 Mupirocin (Bactroban) 1 applic BID TOP Last administered on 10/06/16 09:00; Admin Dose 1 APPLIC; Start 09/28/16 at 21:00 Cromolyn Sodium (Nasalcrom) 1 spray QID NASAL Last administered on 10/06/16 09 :00; Admin Dose 1 SPRAY; Start 09/29/16 at 11:02 Linezolid (Zyvox) 600 mg BID PO Last administered on 10/06/16 10:28; Admin Dose 600 MG; Start 09/29/16 at 21:00 Amikacin Sulfate (Amikacin Iv Per Pharmacy) AMIKACIN PER PHARMACY NOTE XX ; Start 09/29/16 at 15:30 Morphine Sulfate (Ms Contin (Er)) 60 mg Q6 PO Last administered on 10/06/16 11 :33; Admin Dose 60 MG; Start 10/01/16 at 18:00 Phenol (Cepastat Lozenge) 1 lozenge Q2H PRN MT SORE THROAT Last administered on 10/02/16 12:48; Admin Dose 1 LOZENGE; Start 10/01/16 at 19:00 IV Flush 10 ml 10 ml PRN PRN IV IV PROTOCOL; Start 10/02/16 at 19:00 Amikacin Sulfate/ Dextrose (Amikacin/D5W) 102.8 ml @ 102.8 mls/ hr Q24H IVPB Last administered on 10/06/16 10:35; Admin Dose 102.8 MLS/HR; Start 10/04/16 at 09:00 Lactobacillus Acidophilus (Florajen3 Capsule) 1 each TID PO Last administered on 10/06/16 10:35; Admin Dose 1 EACH; Start 10/03/16 at 21:00 Losartan Potassium (Cozaar) 25 mg DAILY PO Last administered on 10/05/16 09:09 ; Admin Dose 25 MG; Start 10/05/16 at 09:00 REBECCA ISLAS Oct 06, 2016 12:21
--- NOTE | 2016-10-06 14:38 | CONS ---
Date/Time of Note Date/Time of Note DATE: 10/06/16 TIME: 14:36 Assessment/Plan Assessment/Plan Additional Assessment/Plan SIRS Intermittent hypotension Diastolic congestive heart failure, compensated Pulmonary hypertension Preserved ejection fraction Tricuspid valve regurgitation Lung cancer -Blood pressure remains on the lower end and patient continues to complain of fatigue. Would DC beta-belinda and ARB Consultation Date/Type/Reason Admit Date/Time Sep 26, 2016 at 20:07 Type of Consultation: cv 24 HR Interval Summary Free Text/Dictation Denies chest pain, shortness of breath. Complains of fatigue Exam/Review of Systems Vital Signs Vitals Vital Signs Date Time Temp Pulse Resp B/P Pulse Ox O2 Delivery O2 Flow Rate FiO2 10/06/16 09:00 93 96/65 10/05/16 21:24 98 3.0 10/05/16 21:24 18 Nasal Cannula 10/05/16 20:00 98.9 Intake and Output 10/05/16 10/05/16 10/06/16 15:00 23:00 07:00 Intake Total 920 ml 920 ml Output Total 1400 ml 1000 ml Balance -480 ml -80 ml Exam No apparent distress Constitutional: alert, frail, oriented Head: normocephalic Respiratory: other (Coarse breath sounds bilaterally, no wheezing) Cardiovascular: other (S1-S2 heard), regular rate and rhythm Gastrointestinal: bowel sounds, non-tender, soft Extremities: other (No edema) Results Result Diagram: 10/06/16 0435 10/06/16 0435 Results 24 hrs Laboratory Tests Test 10/06/16 04:35 White Blood Count 15.4 H Red Blood Count 3.21 L Hemoglobin 8.2 L Hematocrit 27.2 L Mean Corpuscular Volume 84.7 Mean Corpuscular Hemoglobin 25.5 L Mean Corpuscular Hemoglobin Concent 30.1 L Red Cell Distribution Width 16.8 H Platelet Count 406 Mean Platelet Volume 8.6 Neutrophils % 72.8 Lymphocytes % 12.5 L Monocytes % 10.2 Eosinophils % 3.4 Basophils % 0.5 Nucleated Red Blood Cells % 0.0 Neutrophils # 11.2 H Lymphocytes # 1.9 Monocytes # 1.6 H Eosinophils # 0.5 Basophils # 0.1 Nucleated Red Blood Cells # 0.0 Sodium Level 129 L Potassium Level 4.2 Chloride Level 90 L Carbon Dioxide Level 32 H Anion Gap 11 Blood Urea Nitrogen 14 Creatinine 0.32 L Glucose Level 122 Calcium Level 8.0 L Medications Medications Current Medications Ondansetron HCl (Zofran Inj) 4 mg Q6 PRN IV NAUSEA AND/OR VOMITING; Start 09/26 at 22:30 Acetaminophen (Tylenol Tab) 650 mg Q6H PRN PO PAIN AND OR ELEVATED TEMP Last administered on 10/06/16 03:17; Admin Dose 650 MG; Start 09/26/16 at 23:00 Alprazolam (Xanax) 0.5 mg Q12 PRN PO ANXIETY Last administered on 10/04/16 20: 29; Admin Dose 0.5 MG; Start 09/26/16 at 23:00 Ascorbic Acid (Vitamin C) 500 mg BID PO Last administered on 10/06/16 10:27; Admin Dose 500 MG; Start 09/27/16 at 09:00 Atorvastatin Calcium (Lipitor) 20 mg QHS PO Last administered on 10/05/16 21: 33; Admin Dose 20 MG; Start 09/27/16 at 21:00 Diazepam (Valium) 10 mg DAILY PO Last administered on 10/06/16 10:28; Admin Dose 10 MG; Start 09/27/16 at 09:00 Docusate Sodium (Colace) 100 mg Q12H PRN PO CONSTIPATION; Start 09/26/16 at 23: 00 Duloxetine HCl (Cymbalta) 20 mg DAILY PO Last administered on 10/06/16 10:27; Admin Dose 20 MG; Start 09/27/16 at 09:00 Ferrous Sulfate (Ferrous Sulfate (Ec)) 325 mg BID PO Last administered on 10:28; Admin Dose 325 MG; Start 09/27/16 at 09:00 Gabapentin (Neurontin) 300 mg TID PO Last administered on 10/06/16 12:27; Admin Dose 300 MG; Start 09/27/16 at 09:00 Zolpidem Tartrate (Ambien) 5 mg QHS PRN PO INSOMNIA Last administered on 02:35; Admin Dose 5 MG; Start 09/26/16 at 23:00 Collagenase (Santyl) 1 applic DAILY TOP Last administered on 10/06/16 09:00; Admin Dose 1 APPLIC; Start 09/27/16 at 09:00 Collagenase (Santyl) 1 applic PRN PRN TOP SOILED OR DISLODGED DRESSING; Start 09/27/16 at 05:00 Lansoprazole (Prevacid) 30 mg DAILY@06 GTB Last administered on 10/06/16 06:08 ; Admin Dose 30 MG; Start 09/28/16 at 06:00 Metoprolol Tartrate (Lopressor) 25 mg BID PO Last administered on 10/05/16 09: 08; Admin Dose 25 MG; Start 09/27/16 at 21:00 Mupirocin (Bactroban) 1 applic BID TOP Last administered on 10/06/16 09:00; Admin Dose 1 APPLIC; Start 09/28/16 at 21:00 Cromolyn Sodium (Nasalcrom) 1 spray QID NASAL Last administered on 10/06/16 12 :27; Admin Dose 1 SPRAY; Start 09/29/16 at 11:02 Linezolid (Zyvox) 600 mg BID PO Last administered on 10/06/16 10:28; Admin Dose 600 MG; Start 09/29/16 at 21:00 Amikacin Sulfate (Amikacin Iv Per Pharmacy) AMIKACIN PER PHARMACY NOTE XX ; Start 09/29/16 at 15:30 Morphine Sulfate (Ms Contin (Er)) 60 mg Q6 PO Last administered on 10/06/16 11 :33; Admin Dose 60 MG; Start 10/01/16 at 18:00 Phenol (Cepastat Lozenge) 1 lozenge Q2H PRN MT SORE THROAT Last administered on 10/02/16 12:48; Admin Dose 1 LOZENGE; Start 10/01/16 at 19:00 IV Flush 10 ml 10 ml PRN PRN IV IV PROTOCOL; Start 10/02/16 at 19:00 Amikacin Sulfate/ Dextrose (Amikacin/D5W) 102.8 ml @ 102.8 mls/ hr Q24H IVPB Last administered on 10/06/16 10:35; Admin Dose 102.8 MLS/HR; Start 10/04/16 at 09:00 Lactobacillus Acidophilus (Florajen3 Capsule) 1 each TID PO Last administered on 10/06/16 12:27; Admin Dose 1 EACH; Start 10/03/16 at 21:00 Losartan Potassium (Cozaar) 25 mg DAILY PO Last administered on 10/05/16 09:09 ; Admin Dose 25 MG; Start 10/05/16 at 09:00 Artemio Tipton DO Oct 06, 2016 14:38
--- NOTE | 2016-10-06 15:09 | CONS ---
Date/Time of Note Date/Time of Note DATE: 10/06/16 TIME: 15:08 Assessment/Plan Assessment/Plan Chief Complaint/Hosp Course SUBJECTIVE: No acute changes, awake, no fevers. MICROBIOLOGY: A urine culture growing Proteus mirabilis and Klebsiella pneumoniae, both susceptible to amikacin and Zosyn. Wound culture growing Enterococcus, Klebsiella, extended-spectrum beta-lactamase, Citrobacter. INDWELLINGS: PEG, George. ANTIMICROBIALS: 1. Amikacin 2. Topical Bactroban to nares. 3. Zyvox. PHYSICAL EXAMINATION GENERAL: Cachectic, elderly, woman who is in no distress. HEENT: Head atraumatic, normocephalic. Sclerae are anicteric. Buccal mucosa dry. NECK: Supple. CHEST: Rise symmetrical. Breath sounds diminished to bases. HEART: S1, S2. ABDOMEN: Soft, bowel tones present. EXTREMITIES: Without cyanosis, edema. ASSESSMENT 1. Recurrent sepsis. 2. Polymicrobial urinary tract infection. 3. Unstageable sacral decubitus. 4. Methicillin-resistant Staphylococcus aureus nares colonization. 5. Cachexia. 6. Lung cancer. 7. ALLERGY TO PENICILLIN. 8. History of Clostridium difficile colitis. 9. Abnormal LFT PLAN: Clinically unchanged. Continue present care, complete abx for 4 more days, continue Bactroban to nares.Pending repeat swallow eval [facility] staff Problems: Consultation Date/Type/Reason Admit Date/Time Sep 26, 2016 at 20:07 Type of Consultation: id Exam/Review of Systems Vital Signs Vitals Vital Signs Date Time Temp Pulse Resp B/P Pulse Ox O2 Delivery O2 Flow Rate FiO2 10/06/16 09:00 93 96/65 10/05/16 21:24 98 3.0 10/05/16 21:24 18 Nasal Cannula 10/05/16 20:00 98.9 Intake and Output 10/05/16 10/05/16 10/06/16 15:00 23:00 07:00 Intake Total 920 ml 920 ml Output Total 1400 ml 1000 ml Balance -480 ml -80 ml Results Result Diagram: 10/06/16 0435 10/06/16 0435 Results 24 hrs Laboratory Tests Test 10/06/16 04:35 White Blood Count 15.4 H Red Blood Count 3.21 L Hemoglobin 8.2 L Hematocrit 27.2 L Mean Corpuscular Volume 84.7 Mean Corpuscular Hemoglobin 25.5 L Mean Corpuscular Hemoglobin Concent 30.1 L Red Cell Distribution Width 16.8 H Platelet Count 406 Mean Platelet Volume 8.6 Neutrophils % 72.8 Lymphocytes % 12.5 L Monocytes % 10.2 Eosinophils % 3.4 Basophils % 0.5 Nucleated Red Blood Cells % 0.0 Neutrophils # 11.2 H Lymphocytes # 1.9 Monocytes # 1.6 H Eosinophils # 0.5 Basophils # 0.1 Nucleated Red Blood Cells # 0.0 Sodium Level 129 L Potassium Level 4.2 Chloride Level 90 L Carbon Dioxide Level 32 H Anion Gap 11 Blood Urea Nitrogen 14 Creatinine 0.32 L Glucose Level 122 Calcium Level 8.0 L Medications Medications Current Medications Ondansetron HCl (Zofran Inj) 4 mg Q6 PRN IV NAUSEA AND/OR VOMITING; Start 09/26 at 22:30 Acetaminophen (Tylenol Tab) 650 mg Q6H PRN PO PAIN AND OR ELEVATED TEMP Last administered on 10/06/16 14:52; Admin Dose 650 MG; Start 09/26/16 at 23:00 Alprazolam (Xanax) 0.5 mg Q12 PRN PO ANXIETY Last administered on 10/04/16 20: 29; Admin Dose 0.5 MG; Start 09/26/16 at 23:00 Ascorbic Acid (Vitamin C) 500 mg BID PO Last administered on 10/06/16 10:27; Admin Dose 500 MG; Start 09/27/16 at 09:00 Atorvastatin Calcium (Lipitor) 20 mg QHS PO Last administered on 10/05/16 21: 33; Admin Dose 20 MG; Start 09/27/16 at 21:00 Diazepam (Valium) 10 mg DAILY PO Last administered on 10/06/16 10:28; Admin Dose 10 MG; Start 09/27/16 at 09:00 Docusate Sodium (Colace) 100 mg Q12H PRN PO CONSTIPATION; Start 09/26/16 at 23: 00 Duloxetine HCl (Cymbalta) 20 mg DAILY PO Last administered on 10/06/16 10:27; Admin Dose 20 MG; Start 09/27/16 at 09:00 Ferrous Sulfate (Ferrous Sulfate (Ec)) 325 mg BID PO Last administered on 10:28; Admin Dose 325 MG; Start 09/27/16 at 09:00 Gabapentin (Neurontin) 300 mg TID PO Last administered on 10/06/16 12:27; Admin Dose 300 MG; Start 09/27/16 at 09:00 Zolpidem Tartrate (Ambien) 5 mg QHS PRN PO INSOMNIA Last administered on 02:35; Admin Dose 5 MG; Start 09/26/16 at 23:00 Collagenase (Santyl) 1 applic DAILY TOP Last administered on 10/06/16 09:00; Admin Dose 1 APPLIC; Start 09/27/16 at 09:00 Collagenase (Santyl) 1 applic PRN PRN TOP SOILED OR DISLODGED DRESSING; Start 09/27/16 at 05:00 Lansoprazole (Prevacid) 30 mg DAILY@06 GTB Last administered on 10/06/16 06:08 ; Admin Dose 30 MG; Start 09/28/16 at 06:00 Mupirocin (Bactroban) 1 applic BID TOP Last administered on 10/06/16 09:00; Admin Dose 1 APPLIC; Start 09/28/16 at 21:00 Cromolyn Sodium (Nasalcrom) 1 spray QID NASAL Last administered on 10/06/16 12 :27; Admin Dose 1 SPRAY; Start 09/29/16 at 11:02 Linezolid (Zyvox) 600 mg BID PO Last administered on 10/06/16 10:28; Admin Dose 600 MG; Start 09/29/16 at 21:00 Amikacin Sulfate (Amikacin Iv Per Pharmacy) AMIKACIN PER PHARMACY NOTE XX ; Start 09/29/16 at 15:30 Morphine Sulfate (Ms Contin (Er)) 60 mg Q6 PO Last administered on 10/06/16 11 :33; Admin Dose 60 MG; Start 10/01/16 at 18:00 Phenol (Cepastat Lozenge) 1 lozenge Q2H PRN MT SORE THROAT Last administered on 10/02/16 12:48; Admin Dose 1 LOZENGE; Start 10/01/16 at 19:00 IV Flush 10 ml 10 ml PRN PRN IV IV PROTOCOL; Start 10/02/16 at 19:00 Amikacin Sulfate/ Dextrose (Amikacin/D5W) 102.8 ml @ 102.8 mls/ hr Q24H IVPB Last administered on 10/06/16 10:35; Admin Dose 102.8 MLS/HR; Start 10/04/16 at 09:00 Lactobacillus Acidophilus (Florajen3 Capsule) 1 each TID PO Last administered on 10/06/16 12:27; Admin Dose 1 EACH; Start 10/03/16 at 21:00 RUBIN MAYEN NP Oct 06, 2016 15:09
--- NOTE | 2016-10-06 15:42 | RADRPT ---
PROCEDURE: CHEST 1VW CLINICAL INDICATION: PICC placement TECHNIQUE: Single frontal view of the chest was obtained COMPARISON: 10/02/2016 FINDINGS: The tip of the right PICC line is seen with the tip cavoatrial junction. The cardiac size is normal. Aortic vascular calcifications are demonstrated. There is no pulmonary vascular congestion. Stable left lung mass.. Mild degenerative changes of the visualized osseous structures are visualized. IMPRESSION: 1. The tip of the right PICC line is seen with the tip cavoatrial junction. 2. Stable left lung mass. RPTAT:PP .Len Jones MD, Date Time Electronically viewed and signed by .Len Jones MD, on 10/06/2016 15:41 .V/
[2016-10-06] MEDS: ALBUTEROL/IPRATROPIUM (NEB) 3 ML AMP NEB PRN (16:15)
--- NOTE | 2016-10-06 16:17 | CONS ---
Date/Time of Note Date/Time of Note DATE: 10/06/16 TIME: 16:16 Assessment/Plan Assessment/Plan Additional Assessment/Plan Additional Assessment/Plan IMPRESSION: 1. Sepsis. The patient is on vancomycin, aztreonam. 2. Anemia. Of chronic disease 3. Chronic obstructive pulmonary disease. 4. Multiple decubitus ulcers. 5. Wasting of the muscles. 6. Left lung squamous cell carcinoma 7. Chronic urinary retention 8. Back pain. 9. Abnormal liver function tests with bile duct upper limit of normal diameter which is 8 mm. Alkaline phosphatase trending down 10. History of C. difficile colitis PLAN: Monitor LFT. If it keeps going up and the patient is symptomatic, then will do MRCP. Otherwise, continue present care. Stool for occult blood most negative Liver function testing in a.m. Consultation Date/Type/Reason Admit Date/Time Sep 26, 2016 at 20:07 Type of Consultation: id [id number] HR Interval Summary Constitutional: no complaints Exam/Review of Systems Vital Signs Vitals Vital Signs Date Time Temp Pulse Resp B/P Pulse Ox O2 Delivery O2 Flow Rate FiO2 10/06/16 09:00 93 96/65 10/05/16 21:24 98 3.0 10/05/16 21:24 18 Nasal Cannula 10/05/16 20:00 98.9 Intake and Output 10/05/16 10/05/16 10/06/16 15:00 23:00 07:00 Intake Total 920 ml 920 ml Output Total 1400 ml 1000 ml Balance -480 ml -80 ml Exam Constitutional: alert, oriented, well developed Psych: nl mood/affect, no complaints Head: atraumatic, normocephalic Eyes: EOMI, PERRL, nl conjunctiva, nl lids, nl sclera ENMT: nl external ears & nose, nl lips & teeth, nl nasal mucosa & septum Neck: non-tender, supple Respiratory: clear to auscultation, normal air movement Cardiovascular: nl pulses, regular rate and rhythm Gastrointestinal: nl liver, spleen, non-tender, soft Musculoskeletal: nl extremities to inspection, nl gait and stance Extremities: normal pulses Neurological: INPATIENT AUDITOR II-XII intact, nl mental status, nl speech, nl strength Skin: nl turgor, No rash or lesions Lymph: nl lymph nodes Results Result Diagram: 10/06/16 0435 10/06/16 0435 Results 24 hrs Laboratory Tests Test 10/06/16 04:35 White Blood Count 15.4 H Red Blood Count 3.21 L Hemoglobin 8.2 L Hematocrit 27.2 L Mean Corpuscular Volume 84.7 Mean Corpuscular Hemoglobin 25.5 L Mean Corpuscular Hemoglobin Concent 30.1 L Red Cell Distribution Width 16.8 H Platelet Count 406 Mean Platelet Volume 8.6 Neutrophils % 72.8 Lymphocytes % 12.5 L Monocytes % 10.2 Eosinophils % 3.4 Basophils % 0.5 Nucleated Red Blood Cells % 0.0 Neutrophils # 11.2 H Lymphocytes # 1.9 Monocytes # 1.6 H Eosinophils # 0.5 Basophils # 0.1 Nucleated Red Blood Cells # 0.0 Sodium Level 129 L Potassium Level 4.2 Chloride Level 90 L Carbon Dioxide Level 32 H Anion Gap 11 Blood Urea Nitrogen 14 Creatinine 0.32 L Glucose Level 122 Calcium Level 8.0 L Medications Medications Current Medications Ondansetron HCl (Zofran Inj) 4 mg Q6 PRN IV NAUSEA AND/OR VOMITING; Start 09/26 at 22:30 Acetaminophen (Tylenol Tab) 650 mg Q6H PRN PO PAIN AND OR ELEVATED TEMP Last administered on 10/06/16 14:52; Admin Dose 650 MG; Start 09/26/16 at 23:00 Alprazolam (Xanax) 0.5 mg Q12 PRN PO ANXIETY Last administered on 10/04/16 20: 29; Admin Dose 0.5 MG; Start 09/26/16 at 23:00 Ascorbic Acid (Vitamin C) 500 mg BID PO Last administered on 10/06/16 10:27; Admin Dose 500 MG; Start 09/27/16 at 09:00 Atorvastatin Calcium (Lipitor) 20 mg QHS PO Last administered on 10/05/16 21: 33; Admin Dose 20 MG; Start 09/27/16 at 21:00 Diazepam (Valium) 10 mg DAILY PO Last administered on 10/06/16 10:28; Admin Dose 10 MG; Start 09/27/16 at 09:00 Docusate Sodium (Colace) 100 mg Q12H PRN PO CONSTIPATION; Start 09/26/16 at 23: 00 Duloxetine HCl (Cymbalta) 20 mg DAILY PO Last administered on 10/06/16 10:27; Admin Dose 20 MG; Start 09/27/16 at 09:00 Ferrous Sulfate (Ferrous Sulfate (Ec)) 325 mg BID PO Last administered on 10:28; Admin Dose 325 MG; Start 09/27/16 at 09:00 Gabapentin (Neurontin) 300 mg TID PO Last administered on 10/06/16 12:27; Admin Dose 300 MG; Start 09/27/16 at 09:00 Zolpidem Tartrate (Ambien) 5 mg QHS PRN PO INSOMNIA Last administered on 02:35; Admin Dose 5 MG; Start 09/26/16 at 23:00 Collagenase (Santyl) 1 applic DAILY TOP Last administered on 10/06/16 09:00; Admin Dose 1 APPLIC; Start 09/27/16 at 09:00 Collagenase (Santyl) 1 applic PRN PRN TOP SOILED OR DISLODGED DRESSING; Start 09/27/16 at 05:00 Lansoprazole (Prevacid) 30 mg DAILY@06 GTB Last administered on 10/06/16 06:08 ; Admin Dose 30 MG; Start 09/28/16 at 06:00 Mupirocin (Bactroban) 1 applic BID TOP Last administered on 10/06/16 09:00; Admin Dose 1 APPLIC; Start 09/28/16 at 21:00 Cromolyn Sodium (Nasalcrom) 1 spray QID NASAL Last administered on 10/06/16 12 :27; Admin Dose 1 SPRAY; Start 09/29/16 at 11:02 Linezolid (Zyvox) 600 mg BID PO Last administered on 10/06/16 10:28; Admin Dose 600 MG; Start 09/29/16 at 21:00 Amikacin Sulfate (Amikacin Iv Per Pharmacy) AMIKACIN PER PHARMACY NOTE XX ; Start 09/29/16 at 15:30 Morphine Sulfate (Ms Contin (Er)) 60 mg Q6 PO Last administered on 10/06/16 11 :33; Admin Dose 60 MG; Start 10/01/16 at 18:00 Phenol (Cepastat Lozenge) 1 lozenge Q2H PRN MT SORE THROAT Last administered on 10/02/16 12:48; Admin Dose 1 LOZENGE; Start 10/01/16 at 19:00 IV Flush 10 ml 10 ml PRN PRN IV IV PROTOCOL; Start 10/02/16 at 19:00 Amikacin Sulfate/ Dextrose (Amikacin/D5W) 102.8 ml @ 102.8 mls/ hr Q24H IVPB Last administered on 10/06/16 10:35; Admin Dose 102.8 MLS/HR; Start 10/04/16 at 09:00 Lactobacillus Acidophilus (Florajen3 Capsule) 1 each TID PO Last administered on 10/06/16 12:27; Admin Dose 1 EACH; Start 10/03/16 at 21:00 COTY KIRK MD Oct 06, 2016 16:17
[2016-10-06] MEDS: ATORVASTATIN 20 MG TAB PO SCH (21:01)
[2016-10-07] MEDS: HYDROmorphONE 1 MG/ML SYG IV PRN ×5 (02:51→23:08)
[2016-10-07] MEDS: ALBUTEROL/IPRATROPIUM (NEB) 3 ML AMP NEB PRN (03:45)
[2016-10-07] MEDS: LANSOPRAZOLE 30 MG CAP GTB SCH (05:54)
[2016-10-07] MEDS: morphine (ER) 30 MG TAB PO SCH ×3 (05:54→17:06)
[2016-10-07 06:09] LABS: ADD SCAN DIFF NO
[2016-10-07 06:29] LABS: ABNORMAL IP MESSAGE 1; BASOPHIL # 0.1 10^3/ul (0.0-0.1); BASOPHILS % 0.5 % (0.0-2.0); EOSINOPHILS # 0.6 10^3/ul (0.0-0.5); EOSINOPHILS % 3.7 % (0.0-7.0); HEMATOCRIT 27.4 % (37.0-47.0); HEMOGLOBIN 8.3 g/dl (12.0-16.0); LYMPHOCYTES # 2.4 10^3/ul (0.8-2.9); LYMPHOCYTES % 14.6 % (15.0-51.0); MEAN CORPUSCULAR HEMOGLOBIN 25.7 pg (29.0-33.0); MEAN CORPUSCULAR HGB CONC 30.3 g/dl (32.0-37.0); MEAN CORPUSCULAR VOLUME 84.8 fl (82.0-101.0); MONOCYTE # 1.7 10^3/ul (0.3-0.9); MONOCYTES % 10.1 % (0.0-11.0); NEUTROPHIL # 11.6 10^3/ul (1.6-7.5); NEUTROPHILS % 70.3 % (39.0-77.0); PLATELET COUNT 410 10^3/UL (140-415); RED BLOOD COUNT 3.23 10^6/ul (4.20-5.40); RED CELL DISTRIBUTION WIDTH 16.7 % (11.5-14.5); WHITE BLOOD COUNT 16.5 10^3/ul (4.8-10.8)
[2016-10-07 06:38] LABS: ALBUMIN 2.3 g/dl (3.3-4.9)
[2016-10-07 06:39] LABS: POTASSIUM 3.8 mmol/L (3.5-5.1)
[2016-10-07 06:41] LABS: ALBUMIN/GLOBULIN RATIO 0.5; BILIRUBIN,INDIRECT 0.1 mg/dl (0-1.1); BILIRUBIN,TOTAL 0.1 mg/dl (0.2-1.3); CREATININE 0.34 mg/dl (0.44-1.00); TOTAL PROTEIN 6.9 g/dl (6.1-8.1)
[2016-10-07 06:42] LABS: CALCIUM 8.2 mg/dl (8.4-10.2)
[2016-10-07 08:01] VITALS: BP 92/62; RESP 18
[2016-10-07] MEDS: ZYVOX 600 MG TAB PO SCH ×2 (09:22→20:45)
[2016-10-07] MEDS: ASCORBIC ACID 500 MG TAB PO SCH ×2 (09:22→20:45)
[2016-10-07] MEDS: GABAPENTIN 300 MG CAP PO SCH ×3 (09:22→20:45)
[2016-10-07] MEDS: COLLAGENASE 30 GM TUBE TOP SCH (09:22)
[2016-10-07] MEDS: FERROUS SULFATE (EC) 325 MG TAB PO SCH ×2 (09:22→20:45)
[2016-10-07] MEDS: DULOXETINE 20 MG CAP DR PO SCH (09:22)
[2016-10-07] MEDS: DIAZEPAM 5 MG TAB PO SCH (09:22)
[2016-10-07] MEDS: MUPIROCIN 2% 22 GM OINT TOP SCH ×2 (09:22→20:46)
[2016-10-07] MEDS: L ACIDOPHIL/B LACTIS/B LONGUM CAPSULE PO SCH ×3 (09:22→21:35)
[2016-10-07] MEDS: LEVOTHYROXINE 125 MCG TAB PO SCH (09:23)
[2016-10-07] MEDS: CROMOLYN 4% 26ML NAS INH NASAL SCH ×4 (09:23→20:46)
[2016-10-07] MEDS: AMIKACIN 700 MG in DEXTROSE 5% 100 ML IVPB SCH (09:24)
--- NOTE | 2016-10-07 10:36 | PN ---
Date/Time of Note Date/Time of Note DATE: 10/07/16 TIME: 10:35 Assessment/Plan VTE Prophylaxis VTE Prophylaxis Intervention: SCD's Lines/Catheters [facility] Central line still needed: No Urinary Cath still in place: Yes Reason Cath still needed: urinary retention Assessment/Plan Chief Complaint/Hosp Course Patient is a 66-year-old female with anemia and cancer presents for anemia and leukocytosis. The patient was sent by Dr. Dozier from [facility] for admission. The patient said that she was "not feeling well all weekend". She was brought in by ambulance. She said that she had a fever but did not check her temperature. She has had cough and urinary symptoms as well as sore throat. The patient had peristent hypotension but no sycnope and remains stabe with no chest pain and no overt CHF Problems: Assessment/Plan SIRS Intermittent hypotension Diastolic congestive heart failure, compensated Pulmonary hypertension Preserved ejection fraction Tricuspid valve regurgitation Lung cancer -Blood pressure remains on the lower end and patient continues to complain of fatigue. -continue crurent therapy Subjective 24 Hr Interval Summary Free Text/Dictation the patient with no cahnge overnight Exam/Review of Systems Vital Signs Vitals Vital Signs Date Time Temp Pulse Resp B/P Pulse Ox O2 Delivery O2 Flow Rate FiO2 10/07/16 08:01 97.9 101 18 92/62 98 10/07/16 03:45 Nasal Cannula 4.0 Intake and Output 10/06/16 10/06/16 10/07/16 15:00 23:00 07:00 Intake Total 102.8 ml 920 ml 920 ml Output Total 1100 ml 1200 ml Balance 102.8 ml -180 ml -280 ml Results Result Diagram: 10/07/16 0418 10/07/16 0418 Results 24 hrs Laboratory Tests Test 10/07/16 04:18 White Blood Count 16.5 H Red Blood Count 3.23 L Hemoglobin 8.3 L Hematocrit 27.4 L Mean Corpuscular Volume 84.8 Mean Corpuscular Hemoglobin 25.7 L Mean Corpuscular Hemoglobin Concent 30.3 L Red Cell Distribution Width 16.7 H Platelet Count 410 Mean Platelet Volume 9.0 Neutrophils % 70.3 Lymphocytes % 14.6 L Monocytes % 10.1 Eosinophils % 3.7 Basophils % 0.5 Nucleated Red Blood Cells % 0.0 Neutrophils # 11.6 H Lymphocytes # 2.4 Monocytes # 1.7 H Eosinophils # 0.6 H Basophils # 0.1 Nucleated Red Blood Cells # 0.0 Sodium Level 130 L Potassium Level 3.8 Chloride Level 87 L Carbon Dioxide Level 35 H Anion Gap 12 Blood Urea Nitrogen 13 Creatinine 0.34 L Glucose Level 141 Calcium Level 8.2 L Ferritin 2380.0 H Total Bilirubin 0.1 L Direct Bilirubin 0.00 Indirect Bilirubin 0.1 Aspartate Amino Transf (AST/SGOT) 19 Alanine Aminotransferase (ALT/SGPT) 15 Alkaline Phosphatase 147 H Total Protein 6.9 Albumin 2.3 L Globulin 4.60 H Albumin/Globulin Ratio 0.50 Medications Medications Current Medications Ondansetron HCl (Zofran Inj) 4 mg Q6 PRN IV NAUSEA AND/OR VOMITING; Start 09/26 at 22:30 Acetaminophen (Tylenol Tab) 650 mg Q6H PRN PO PAIN AND OR ELEVATED TEMP Last administered on 10/06/16 14:52; Admin Dose 650 MG; Start 09/26/16 at 23:00 Alprazolam (Xanax) 0.5 mg Q12 PRN PO ANXIETY Last administered on 10/04/16 20: 29; Admin Dose 0.5 MG; Start 09/26/16 at 23:00 Ascorbic Acid (Vitamin C) 500 mg BID PO Last administered on 10/07/16 09:22; Admin Dose 500 MG; Start 09/27/16 at 09:00 Atorvastatin Calcium (Lipitor) 20 mg QHS PO Last administered on 10/06/16 21: 01; Admin Dose 20 MG; Start 09/27/16 at 21:00 Diazepam (Valium) 10 mg DAILY PO Last administered on 10/07/16 09:22; Admin Dose 10 MG; Start 09/27/16 at 09:00 Docusate Sodium (Colace) 100 mg Q12H PRN PO CONSTIPATION; Start 09/26/16 at 23: 00 Duloxetine HCl (Cymbalta) 20 mg DAILY PO Last administered on 10/07/16 09:22; Admin Dose 20 MG; Start 09/27/16 at 09:00 Ferrous Sulfate (Ferrous Sulfate (Ec)) 325 mg BID PO Last administered on 09:22; Admin Dose 325 MG; Start 09/27/16 at 09:00 Gabapentin (Neurontin) 300 mg TID PO Last administered on 10/07/16 09:22; Admin Dose 300 MG; Start 09/27/16 at 09:00 Zolpidem Tartrate (Ambien) 5 mg QHS PRN PO INSOMNIA Last administered on 02:35; Admin Dose 5 MG; Start 09/26/16 at 23:00 Collagenase (Santyl) 1 applic DAILY TOP Last administered on 10/07/16 09:22; Admin Dose 1 APPLIC; Start 09/27/16 at 09:00 Collagenase (Santyl) 1 applic PRN PRN TOP SOILED OR DISLODGED DRESSING; Start 09/27/16 at 05:00 Lansoprazole (Prevacid) 30 mg DAILY@06 GTB Last administered on 10/07/16 05:54 ; Admin Dose 30 MG; Start 09/28/16 at 06:00 Mupirocin (Bactroban) 1 applic BID TOP Last administered on 10/07/16 09:22; Admin Dose 1 APPLIC; Start 09/28/16 at 21:00 Cromolyn Sodium (Nasalcrom) 1 spray QID NASAL Last administered on 10/07/16 09 :23; Admin Dose 1 SPRAY; Start 09/29/16 at 11:02 Linezolid (Zyvox) 600 mg BID PO Last administered on 10/07/16 09:22; Admin Dose 600 MG; Start 09/29/16 at 21:00 Amikacin Sulfate (Amikacin Iv Per Pharmacy) AMIKACIN PER PHARMACY NOTE XX ; Start 09/29/16 at 15:30 Morphine Sulfate (Ms Contin (Er)) 60 mg Q6 PO Last administered on 10/07/16 05 :54; Admin Dose 60 MG; Start 10/01/16 at 18:00 Phenol (Cepastat Lozenge) 1 lozenge Q2H PRN MT SORE THROAT Last administered on 10/02/16 12:48; Admin Dose 1 LOZENGE; Start 10/01/16 at 19:00 IV Flush 10 ml 10 ml PRN PRN IV IV PROTOCOL; Start 10/02/16 at 19:00 Amikacin Sulfate/ Dextrose (Amikacin/D5W) 102.8 ml @ 102.8 mls/ hr Q24H IVPB Last administered on 10/07/16 09:24; Admin Dose 102.8 MLS/HR; Start 10/04/16 at 09:00 Lactobacillus Acidophilus (Florajen3 Capsule) 1 each TID PO Last administered on 10/07/16 09:22; Admin Dose 1 EACH; Start 10/03/16 at 21:00 Hydromorphone HCl (Dilaudid) 0.5 mg Q4H PRN IV PAIN Last administered on 09:17; Admin Dose 0.5 MG; Start 10/06/16 at 18:30 RALPH LUCAS MD Oct 07, 2016 10:36
[2016-10-07] MEDS: ACETAMINOPHEN 325 MG TAB PO PRN (16:25)
--- NOTE | 2016-10-07 17:44 | PN ---
Date/Time of Note Date/Time of Note DATE: 10/07/16 TIME: 17:35 Assessment/Plan VTE Prophylaxis VTE Prophylaxis Intervention: other Lines/Catheters [facility] Type [email or web address] PICC Line Central line still needed: Yes Urinary Cath still in place: Yes Reason Cath still needed: urinary retention Assessment/Plan Assessment/Plan -Elevated Liver function tests- improving - per GI consult- Dr Holm -If persistent elevation of LFT, and the patient is symptomatic, possible plan for MRCP. - patient is asymptomatic - am LFTs -- Left lung squamous cell carcinoma.- blood tinged sputum x1 reported by patient - hypotension - Recurrent sepsis sec toSIRS - per ID- on vanco/aztreonam - Polymicrobial urinary tract infection. - Chronic obstructive pulmonary disease- no Shortness of breath noted - Multiple decubitus ulcers with history of debridement. - Methicillin-resistant Staphylococcus aureus nares colonization. - Cachexia. - Dysphagia with G-tube placement - Chronic urinary retention. - Anemia of chronic disease. - Stool for occult blood most negative Further recommendations based on clinical course. Plan of care discussed with Dr. oDzier. Subjective 24 Hr Interval Summary Free Text/Dictation nad, resting, seems comfortable, afebrile, tolerating gt feedings, dw staff Constitutional: requiring O2 ENT: no complaints Respiratory: no complaints, other (blood tinged sputum- stated by patient x1 only.) Cardiovascular: no complaints Gastrointestinal: no complaints Genitourinary: no complaints Musculoskeletal: no complaints Skin: no complaints Exam/Review of Systems Vital Signs Vitals Vital Signs Date Time Temp Pulse Resp B/P Pulse Ox O2 Delivery O2 Flow Rate FiO2 10/07/16 16:15 3.0 10/07/16 09:22 Nasal Cannula 10/07/16 08:01 97.9 101 18 92/62 98 Intake and Output 10/06/16 10/06/16 10/07/16 15:00 23:00 07:00 Intake Total 102.8 ml 920 ml 920 ml Output Total 1100 ml 1200 ml Balance 102.8 ml -180 ml -280 ml Exam Constitutional: alert, frail Eyes: EOMI, nl sclera ENMT: nl external ears & nose Neck: non-tender Respiratory: diminished breath sounds Cardiovascular: nl pulses Gastrointestinal: non-tender, soft Musculoskeletal: muscle weakness Neurological: confused, nl speech Results Result Diagram: 10/07/16 0418 10/07/16 0418 Results 24 hrs Laboratory Tests Test 10/07/16 04:18 White Blood Count 16.5 H Red Blood Count 3.23 L Hemoglobin 8.3 L Hematocrit 27.4 L Mean Corpuscular Volume 84.8 Mean Corpuscular Hemoglobin 25.7 L Mean Corpuscular Hemoglobin Concent 30.3 L Red Cell Distribution Width 16.7 H Platelet Count 410 Mean Platelet Volume 9.0 Neutrophils % 70.3 Lymphocytes % 14.6 L Monocytes % 10.1 Eosinophils % 3.7 Basophils % 0.5 Nucleated Red Blood Cells % 0.0 Neutrophils # 11.6 H Lymphocytes # 2.4 Monocytes # 1.7 H Eosinophils # 0.6 H Basophils # 0.1 Nucleated Red Blood Cells # 0.0 Sodium Level 130 L Potassium Level 3.8 Chloride Level 87 L Carbon Dioxide Level 35 H Anion Gap 12 Blood Urea Nitrogen 13 Creatinine 0.34 L Glucose Level 141 Calcium Level 8.2 L Ferritin 2380.0 H Total Bilirubin 0.1 L Direct Bilirubin 0.00 Indirect Bilirubin 0.1 Aspartate Amino Transf (AST/SGOT) 19 Alanine Aminotransferase (ALT/SGPT) 15 Alkaline Phosphatase 147 H Total Protein 6.9 Albumin 2.3 L Globulin 4.60 H Albumin/Globulin Ratio 0.50 Medications Medications Current Medications Ondansetron HCl (Zofran Inj) 4 mg Q6 PRN IV NAUSEA AND/OR VOMITING; Start 09/26 at 22:30 Acetaminophen (Tylenol Tab) 650 mg Q6H PRN PO PAIN AND OR ELEVATED TEMP Last administered on 10/07/16 16:25; Admin Dose 650 MG; Start 09/26/16 at 23:00 Alprazolam (Xanax) 0.5 mg Q12 PRN PO ANXIETY Last administered on 10/04/16 20: 29; Admin Dose 0.5 MG; Start 09/26/16 at 23:00 Ascorbic Acid (Vitamin C) 500 mg BID PO Last administered on 10/07/16 09:22; Admin Dose 500 MG; Start 09/27/16 at 09:00 Atorvastatin Calcium (Lipitor) 20 mg QHS PO Last administered on 10/06/16 21: 01; Admin Dose 20 MG; Start 09/27/16 at 21:00 Diazepam (Valium) 10 mg DAILY PO Last administered on 10/07/16 09:22; Admin Dose 10 MG; Start 09/27/16 at 09:00 Docusate Sodium (Colace) 100 mg Q12H PRN PO CONSTIPATION; Start 09/26/16 at 23: 00 Duloxetine HCl (Cymbalta) 20 mg DAILY PO Last administered on 10/07/16 09:22; Admin Dose 20 MG; Start 09/27/16 at 09:00 Ferrous Sulfate (Ferrous Sulfate (Ec)) 325 mg BID PO Last administered on 09:22; Admin Dose 325 MG; Start 09/27/16 at 09:00 Gabapentin (Neurontin) 300 mg TID PO Last administered on 10/07/16 12:17; Admin Dose 300 MG; Start 09/27/16 at 09:00 Zolpidem Tartrate (Ambien) 5 mg QHS PRN PO INSOMNIA Last administered on 02:35; Admin Dose 5 MG; Start 09/26/16 at 23:00 Collagenase (Santyl) 1 applic DAILY TOP Last administered on 10/07/16 09:22; Admin Dose 1 APPLIC; Start 09/27/16 at 09:00 Collagenase (Santyl) 1 applic PRN PRN TOP SOILED OR DISLODGED DRESSING; Start 09/27/16 at 05:00 Lansoprazole (Prevacid) 30 mg DAILY@06 GTB Last administered on 10/07/16 05:54 ; Admin Dose 30 MG; Start 09/28/16 at 06:00 Mupirocin (Bactroban) 1 applic BID TOP Last administered on 10/07/16 09:22; Admin Dose 1 APPLIC; Start 09/28/16 at 21:00 Cromolyn Sodium (Nasalcrom) 1 spray QID NASAL Last administered on 10/07/16 17 :06; Admin Dose 1 SPRAY; Start 09/29/16 at 11:02 Linezolid (Zyvox) 600 mg BID PO Last administered on 10/07/16 09:22; Admin Dose 600 MG; Start 09/29/16 at 21:00 Amikacin Sulfate (Amikacin Iv Per Pharmacy) AMIKACIN PER PHARMACY NOTE XX ; Start 09/29/16 at 15:30 Morphine Sulfate (Ms Contin (Er)) 60 mg Q6 PO Last administered on 10/07/16 17 :06; Admin Dose 60 MG; Start 10/01/16 at 18:00 Phenol (Cepastat Lozenge) 1 lozenge Q2H PRN MT SORE THROAT Last administered on 10/02/16 12:48; Admin Dose 1 LOZENGE; Start 10/01/16 at 19:00 IV Flush 10 ml 10 ml PRN PRN IV IV PROTOCOL; Start 10/02/16 at 19:00 Amikacin Sulfate/ Dextrose (Amikacin/D5W) 102.8 ml @ 102.8 mls/ hr Q24H IVPB Last administered on 10/07/16 09:24; Admin Dose 102.8 MLS/HR; Start 10/04/16 at 09:00 Lactobacillus Acidophilus (Florajen3 Capsule) 1 each TID PO Last administered on 10/07/16 12:17; Admin Dose 1 EACH; Start 10/03/16 at 21:00 Hydromorphone HCl (Dilaudid) 0.5 mg Q4H PRN IV PAIN Last administered on 14:12; Admin Dose 0.5 MG; Start 10/06/16 at 18:30 Miscellaneous Information (*Rx Drug Level Order Reminder*) AMIKACIN TROUGH AT 0... ONCE ONCE XX ; Start 10/08/16 at 08:00; Stop 10/08/16 at 08:01 VIKASH CASTANEDA Oct 07, 2016 17:44
--- NOTE | 2016-10-07 18:57 | CONS ---
Date/Time of Note Date/Time of Note DATE: 10/07/16 TIME: 18:57 Assessment/Plan Assessment/Plan Chief Complaint/Hosp Course ID PROGRESS NOTE ABX: Amikacin + Zyvox 24H INTERVAL SUMMARY * 66 yo F w/chronic debility, Awake, alert -- calm, no c/o * No fever, chart reviewed * MICROBIOLOGY: A urine culture growing Proteus mirabilis and Klebsiella pneumoniae, both susceptible to amikacin and Zosyn. Wound culture growing Enterococcus, Klebsiella, extended-spectrum beta-lactamase, Citrobacter. PHYSICAL EXAMINATION: GENERAL: This is a chronically ill-appearing, frail 66 yo F HEENT: Unremarkable -- NECK: Supple, trachea midline. CHEST: Rise symmetrical without dyspnea ABDOMEN: Refuses exam EXTREMITIES: Moves all extremities, Without cyanosis. ID ASSESSMENT: 66 yo F w/PMHx Dementia, CVA(chronic left thalamic lacunar infarction), Tobacco/ COPD-Emphysema/Lung Cancer re-admit with: 1. SIRS * Afebrile * Chronic mild tachycardia - albuterol * Chronic elevated WBC 2. Recurrent polymicrobial UTI * urine culture growing Proteus mirabilis and Klebsiella pneumoniae, both susceptible to amikacin and Zosyn. 3. Urinary retention with chronic George=>Probable neurogenic bladder 5. Status post acute respiratory failure secondary to chronic obstructive pulmonary disease exacerbation. 6. Chronic debility w/Cachexia. 7. Multiple decubitus with a history of debridement. * Wound culture growing Enterococcus, Klebsiella, extended-spectrum beta- lactamase, Citrobacter. 8. H/O DJD spine -> Hx of lumbar spinal fusion 9 .H/O Hypertension w/HTN heart disease mild-mod cLVH on ECHO w/diastolic dysfunction STG I (+) MRSA Nares screen ->Bactroban INVASIVES: PICC, FC, Peg ALLERGY: PENICILLIN. CURRENT ABX: Amikacin + Zyvox ID PLAN: * Continue local wound care * Continue ABX . Problems: Consultation Date/Type/Reason Admit Date/Time Sep 26, 2016 at 20:07 Initial Consult Date Type of Consultation: id Exam/Review of Systems Vital Signs Vitals Vital Signs Date Time Temp Pulse Resp B/P Pulse Ox O2 Delivery O2 Flow Rate FiO2 10/07/16 16:15 3.0 10/07/16 09:22 Nasal Cannula 10/07/16 08:01 97.9 101 18 92/62 98 Intake and Output 10/06/16 10/06/16 10/07/16 15:00 23:00 07:00 Intake Total 102.8 ml 920 ml 920 ml Output Total 1100 ml 1200 ml Balance 102.8 ml -180 ml -280 ml Results Result Diagram: 10/07/16 0418 10/07/16 0418 Results 24 hrs Laboratory Tests Test 10/07/16 04:18 White Blood Count 16.5 H Red Blood Count 3.23 L Hemoglobin 8.3 L Hematocrit 27.4 L Mean Corpuscular Volume 84.8 Mean Corpuscular Hemoglobin 25.7 L Mean Corpuscular Hemoglobin Concent 30.3 L Red Cell Distribution Width 16.7 H Platelet Count 410 Mean Platelet Volume 9.0 Neutrophils % 70.3 Lymphocytes % 14.6 L Monocytes % 10.1 Eosinophils % 3.7 Basophils % 0.5 Nucleated Red Blood Cells % 0.0 Neutrophils # 11.6 H Lymphocytes # 2.4 Monocytes # 1.7 H Eosinophils # 0.6 H Basophils # 0.1 Nucleated Red Blood Cells # 0.0 Sodium Level 130 L Potassium Level 3.8 Chloride Level 87 L Carbon Dioxide Level 35 H Anion Gap 12 Blood Urea Nitrogen 13 Creatinine 0.34 L Glucose Level 141 Calcium Level 8.2 L Ferritin 2380.0 H Total Bilirubin 0.1 L Direct Bilirubin 0.00 Indirect Bilirubin 0.1 Aspartate Amino Transf (AST/SGOT) 19 Alanine Aminotransferase (ALT/SGPT) 15 Alkaline Phosphatase 147 H Total Protein 6.9 Albumin 2.3 L Globulin 4.60 H Albumin/Globulin Ratio 0.50 Medications Medications Current Medications Ondansetron HCl (Zofran Inj) 4 mg Q6 PRN IV NAUSEA AND/OR VOMITING; Start 09/26 at 22:30 Acetaminophen (Tylenol Tab) 650 mg Q6H PRN PO PAIN AND OR ELEVATED TEMP Last administered on 10/07/16 16:25; Admin Dose 650 MG; Start 09/26/16 at 23:00 Alprazolam (Xanax) 0.5 mg Q12 PRN PO ANXIETY Last administered on 10/04/16 20: 29; Admin Dose 0.5 MG; Start 09/26/16 at 23:00 Ascorbic Acid (Vitamin C) 500 mg BID PO Last administered on 10/07/16 09:22; Admin Dose 500 MG; Start 09/27/16 at 09:00 Atorvastatin Calcium (Lipitor) 20 mg QHS PO Last administered on 10/06/16 21: 01; Admin Dose 20 MG; Start 09/27/16 at 21:00 Diazepam (Valium) 10 mg DAILY PO Last administered on 10/07/16 09:22; Admin Dose 10 MG; Start 09/27/16 at 09:00 Docusate Sodium (Colace) 100 mg Q12H PRN PO CONSTIPATION; Start 09/26/16 at 23: 00 Duloxetine HCl (Cymbalta) 20 mg DAILY PO Last administered on 10/07/16 09:22; Admin Dose 20 MG; Start 09/27/16 at 09:00 Ferrous Sulfate (Ferrous Sulfate (Ec)) 325 mg BID PO Last administered on 09:22; Admin Dose 325 MG; Start 09/27/16 at 09:00 Gabapentin (Neurontin) 300 mg TID PO Last administered on 10/07/16 12:17; Admin Dose 300 MG; Start 09/27/16 at 09:00 Zolpidem Tartrate (Ambien) 5 mg QHS PRN PO INSOMNIA Last administered on 02:35; Admin Dose 5 MG; Start 09/26/16 at 23:00 Collagenase (Santyl) 1 applic DAILY TOP Last administered on 10/07/16 09:22; Admin Dose 1 APPLIC; Start 09/27/16 at 09:00 Collagenase (Santyl) 1 applic PRN PRN TOP SOILED OR DISLODGED DRESSING; Start 09/27/16 at 05:00 Lansoprazole (Prevacid) 30 mg DAILY@06 GTB Last administered on 10/07/16 05:54 ; Admin Dose 30 MG; Start 09/28/16 at 06:00 Mupirocin (Bactroban) 1 applic BID TOP Last administered on 10/07/16 09:22; Admin Dose 1 APPLIC; Start 09/28/16 at 21:00 Cromolyn Sodium (Nasalcrom) 1 spray QID NASAL Last administered on 10/07/16 17 :06; Admin Dose 1 SPRAY; Start 09/29/16 at 11:02 Linezolid (Zyvox) 600 mg BID PO Last administered on 10/07/16 09:22; Admin Dose 600 MG; Start 09/29/16 at 21:00 Amikacin Sulfate (Amikacin Iv Per Pharmacy) AMIKACIN PER PHARMACY NOTE XX ; Start 09/29/16 at 15:30 Morphine Sulfate (Ms Contin (Er)) 60 mg Q6 PO Last administered on 10/07/16 17 :06; Admin Dose 60 MG; Start 10/01/16 at 18:00 Phenol (Cepastat Lozenge) 1 lozenge Q2H PRN MT SORE THROAT Last administered on 10/02/16 12:48; Admin Dose 1 LOZENGE; Start 10/01/16 at 19:00 IV Flush 10 ml 10 ml PRN PRN IV IV PROTOCOL; Start 10/02/16 at 19:00 Amikacin Sulfate/ Dextrose (Amikacin/D5W) 102.8 ml @ 102.8 mls/ hr Q24H IVPB Last administered on 10/07/16 09:24; Admin Dose 102.8 MLS/HR; Start 10/04/16 at 09:00 Lactobacillus Acidophilus (Florajen3 Capsule) 1 each TID PO Last administered on 10/07/16 12:17; Admin Dose 1 EACH; Start 10/03/16 at 21:00 Hydromorphone HCl (Dilaudid) 0.5 mg Q4H PRN IV PAIN Last administered on 14:12; Admin Dose 0.5 MG; Start 10/06/16 at 18:30 Miscellaneous Information (*Rx Drug Level Order Reminder*) AMIKACIN TROUGH AT 0... ONCE ONCE XX ; Start 10/08/16 at 08:00; Stop 10/08/16 at 08:01 ALMA ROSARIO NP Oct 07, 2016 18:57
[2016-10-07 20:06] VITALS: BP 81/54; RESP 18
[2016-10-07] MEDS: ATORVASTATIN 20 MG TAB PO SCH (20:45)
[2016-10-07 21:00] VITALS: BP 103/73; PULSE 99
[2016-10-08] MEDS: morphine (ER) 30 MG TAB PO SCH ×6 (00:07→23:48)
[2016-10-08] MEDS: ALBUTEROL/IPRATROPIUM (NEB) 3 ML AMP NEB PRN (02:53)
[2016-10-08] MEDS: HYDROmorphONE 1 MG/ML SYG IV PRN ×4 (03:13→19:08)
[2016-10-08] MEDS: ACETAMINOPHEN 325 MG TAB PO PRN (04:35)
[2016-10-08] MEDS: LEVOTHYROXINE 125 MCG TAB PO SCH (06:10)
[2016-10-08] MEDS: LANSOPRAZOLE 30 MG CAP GTB SCH (06:10)
[2016-10-08 06:16] LABS: ADD SCAN DIFF NO
[2016-10-08 06:24] LABS: ABNORMAL IP MESSAGE 1; BASOPHIL # 0.1 10^3/ul (0.0-0.1); BASOPHILS % 0.7 % (0.0-2.0); EOSINOPHILS # 0.5 10^3/ul (0.0-0.5); EOSINOPHILS % 3.1 % (0.0-7.0); HEMATOCRIT 29.8 % (37.0-47.0); LYMPHOCYTES # 1.9 10^3/ul (0.8-2.9); MEAN CORPUSCULAR HEMOGLOBIN 25.4 pg (29.0-33.0); MEAN CORPUSCULAR HGB CONC 30.2 g/dl (32.0-37.0); MEAN CORPUSCULAR VOLUME 84.2 fl (82.0-101.0); MEAN PLATELET VOLUME 8.3 fl (7.4-10.4); MONOCYTE # 1.5 10^3/ul (0.3-0.9); MONOCYTES % 9.9 % (0.0-11.0); NEUTROPHIL # 11.3 10^3/ul (1.6-7.5); NEUTROPHILS % 73.7 % (39.0-77.0); PLATELET COUNT 364 10^3/UL (140-415); RED BLOOD COUNT 3.54 10^6/ul (4.20-5.40); RED CELL DISTRIBUTION WIDTH 16.9 % (11.5-14.5); WHITE BLOOD COUNT 15.4 10^3/ul (4.8-10.8)
[2016-10-08 06:36] LABS: CALCIUM 8.5 mg/dl (8.4-10.2); CREATININE 0.37 mg/dl (0.44-1.00); POTASSIUM 3.9 mmol/L (3.5-5.1)
[2016-10-08 07:40] VITALS: BP 93/63; RESP 18
[2016-10-08] MEDS: ZYVOX 600 MG TAB PO SCH ×2 (08:24→21:25)
[2016-10-08] MEDS: ASCORBIC ACID 500 MG TAB PO SCH ×2 (08:24→21:24)
[2016-10-08] MEDS: FERROUS SULFATE (EC) 325 MG TAB PO SCH ×2 (08:24→21:24)
[2016-10-08] MEDS: DULOXETINE 20 MG CAP DR PO SCH (08:24)
[2016-10-08] MEDS: GABAPENTIN 300 MG CAP PO SCH ×3 (08:24→21:25)
[2016-10-08] MEDS: DIAZEPAM 5 MG TAB PO SCH (08:24)
[2016-10-08] MEDS: CROMOLYN 4% 26ML NAS INH NASAL SCH ×4 (08:26→21:26)
[2016-10-08] MEDS: L ACIDOPHIL/B LACTIS/B LONGUM CAPSULE PO SCH ×3 (08:33→21:37)
[2016-10-08] MEDS: COLLAGENASE 30 GM TUBE TOP SCH (09:00)
[2016-10-08] MEDS: MUPIROCIN 2% 22 GM OINT TOP SCH ×2 (09:55→21:26)
[2016-10-08] MEDS: AMIKACIN 700 MG in DEXTROSE 5% 100 ML IVPB SCH (09:55)
[2016-10-08] MEDS ORDERED: HYDROmorphONE 2 MG/ML SYG IV PRN (10:30)
[2016-10-08] MEDS: SOD CHLORIDE 0.9% 1,000 ML IV SCH (11:11)
--- NOTE | 2016-10-08 14:21 | CONS ---
Date/Time of Note Date/Time of Note DATE: 10/08/16 TIME: 14:19 Assessment/Plan Assessment/Plan Chief Complaint/Hosp Course ID PROGRESS NOTE ABX: Amikacin + Zyvox 24H INTERVAL SUMMARY * Lethargic w/increasing demands for Dilauded -- refusing wound vac change citing "pain" * 66 yo F w/chronic debility,-- confused, calm at present * No fever, chart reviewed * MICROBIOLOGY: A urine culture growing Proteus mirabilis and Klebsiella pneumoniae, both susceptible to amikacin and Zosyn. Wound culture growing Enterococcus, Klebsiella, extended-spectrum beta-lactamase, Citrobacter. PHYSICAL EXAMINATION: GENERAL: This is a chronically ill-appearing, frail 66 yo F HEENT: Unremarkable -- NECK: Supple, trachea midline. CHEST: Rise symmetrical without dyspnea ABDOMEN: Refuses exam EXTREMITIES: Moves all extremities, Without cyanosis. ID ASSESSMENT: 66 yo F w/PMHx Dementia, CVA(chronic left thalamic lacunar infarction), Tobacco/ COPD-Emphysema/Lung Cancer re-admit with: 1. SIRS * Afebrile * Chronic mild tachycardia - albuterol * Chronic elevated WBC 2. Recurrent polymicrobial UTI * urine culture growing Proteus mirabilis and Klebsiella pneumoniae, both susceptible to amikacin and Zosyn. 3. Urinary retention with chronic George=>Probable neurogenic bladder 5. Status post acute respiratory failure secondary to chronic obstructive pulmonary disease exacerbation. 6. Chronic debility w/Cachexia. 7. Multiple decubitus with a history of debridement. * Wound culture growing Enterococcus, Klebsiella, extended-spectrum beta- lactamase, Citrobacter. 8. H/O DJD spine -> Hx of lumbar spinal fusion 9 .H/O Hypertension w/HTN heart disease mild-mod cLVH on ECHO w/diastolic dysfunction STG I (+) MRSA Nares screen ->Bactroban INVASIVES: PICC, FC, Peg ALLERGY: PENICILLIN. CURRENT ABX: Amikacin + Zyvox ID PLAN: * Continue local wound care-> Wound vac tx - note patient refusing wound vac change due to pain with increasing requests for Dilaudid * Continue ABX . Problems: Consultation Date/Type/Reason Admit Date/Time Sep 26, 2016 at 20:07 Type of Consultation: id Exam/Review of Systems Vital Signs Vitals Vital Signs Date Time Temp Pulse Resp B/P Pulse Ox O2 Delivery O2 Flow Rate FiO2 10/08/16 07:40 98.0 102 18 93/63 97 10/08/16 06:28 2.0 10/08/16 02:57 Nasal Cannula Intake and Output 10/07/16 10/07/16 10/08/16 15:00 23:00 07:00 Intake Total 1022.8 ml 920 ml Output Total 1250 ml 1400 ml Balance -227.2 ml -480 ml Results Result Diagram: 10/08/16 0603 10/08/16 0603 Results 24 hrs Laboratory Tests Test 10/08/16 06:03 White Blood Count 15.4 H Red Blood Count 3.54 L Hemoglobin 9.0 L Hematocrit 29.8 L Mean Corpuscular Volume 84.2 Mean Corpuscular Hemoglobin 25.4 L Mean Corpuscular Hemoglobin Concent 30.2 L Red Cell Distribution Width 16.9 H Platelet Count 364 Mean Platelet Volume 8.3 Neutrophils % 73.7 Lymphocytes % 12.0 L Monocytes % 9.9 Eosinophils % 3.1 Basophils % 0.7 Nucleated Red Blood Cells % 0.0 Neutrophils # 11.3 H Lymphocytes # 1.9 Monocytes # 1.5 H Eosinophils # 0.5 Basophils # 0.1 Nucleated Red Blood Cells # 0.0 Sodium Level 129 L Potassium Level 3.9 Chloride Level 89 L Carbon Dioxide Level 33 H Anion Gap 11 Blood Urea Nitrogen 13 Creatinine 0.37 L Glucose Level 132 Calcium Level 8.5 Medications Medications Current Medications Ondansetron HCl (Zofran Inj) 4 mg Q6 PRN IV NAUSEA AND/OR VOMITING; Start 09/26 at 22:30 Acetaminophen (Tylenol Tab) 650 mg Q6H PRN PO PAIN AND OR ELEVATED TEMP Last administered on 10/08/16 04:35; Admin Dose 650 MG; Start 09/26/16 at 23:00 Alprazolam (Xanax) 0.5 mg Q12 PRN PO ANXIETY Last administered on 10/04/16 20: 29; Admin Dose 0.5 MG; Start 09/26/16 at 23:00 Ascorbic Acid (Vitamin C) 500 mg BID PO Last administered on 10/08/16 08:24; Admin Dose 500 MG; Start 09/27/16 at 09:00 Atorvastatin Calcium (Lipitor) 20 mg QHS PO Last administered on 10/07/16 20: 45; Admin Dose 20 MG; Start 09/27/16 at 21:00 Diazepam (Valium) 10 mg DAILY PO Last administered on 10/08/16 08:24; Admin Dose 10 MG; Start 09/27/16 at 09:00 Docusate Sodium (Colace) 100 mg Q12H PRN PO CONSTIPATION; Start 09/26/16 at 23: 00 Duloxetine HCl (Cymbalta) 20 mg DAILY PO Last administered on 10/08/16 08:24; Admin Dose 20 MG; Start 09/27/16 at 09:00 Ferrous Sulfate (Ferrous Sulfate (Ec)) 325 mg BID PO Last administered on 08:24; Admin Dose 325 MG; Start 09/27/16 at 09:00 Gabapentin (Neurontin) 300 mg TID PO Last administered on 10/08/16 12:34; Admin Dose 300 MG; Start 09/27/16 at 09:00 Zolpidem Tartrate (Ambien) 5 mg QHS PRN PO INSOMNIA Last administered on 02:35; Admin Dose 5 MG; Start 09/26/16 at 23:00 Collagenase (Santyl) 1 applic DAILY TOP Last administered on 10/07/16 09:22; Admin Dose 1 APPLIC; Start 09/27/16 at 09:00 Collagenase (Santyl) 1 applic PRN PRN TOP SOILED OR DISLODGED DRESSING; Start 09/27/16 at 05:00 Lansoprazole (Prevacid) 30 mg DAILY@06 GTB Last administered on 10/08/16 06:10 ; Admin Dose 30 MG; Start 09/28/16 at 06:00 Mupirocin (Bactroban) 1 applic BID TOP Last administered on 10/08/16 09:55; Admin Dose 1 APPLIC; Start 09/28/16 at 21:00 Cromolyn Sodium (Nasalcrom) 1 spray QID NASAL Last administered on 10/08/16 12 :35; Admin Dose 1 SPRAY; Start 09/29/16 at 11:02 Linezolid (Zyvox) 600 mg BID PO Last administered on 10/08/16 08:24; Admin Dose 600 MG; Start 09/29/16 at 21:00 Amikacin Sulfate (Amikacin Iv Per Pharmacy) AMIKACIN PER PHARMACY NOTE XX ; Start 09/29/16 at 15:30 Morphine Sulfate (Ms Contin (Er)) 60 mg Q6 PO Last administered on 10/08/16 12 :34; Admin Dose 60 MG; Start 10/01/16 at 18:00 Phenol (Cepastat Lozenge) 1 lozenge Q2H PRN MT SORE THROAT Last administered on 10/02/16 12:48; Admin Dose 1 LOZENGE; Start 10/01/16 at 19:00 IV Flush 10 ml 10 ml PRN PRN IV IV PROTOCOL; Start 10/02/16 at 19:00 Amikacin Sulfate/ Dextrose (Amikacin/D5W) 102.8 ml @ 102.8 mls/ hr Q24H IVPB Last administered on 10/08/16 09:55; Admin Dose 102.8 MLS/HR; Start 10/04/16 at 09:00 Lactobacillus Acidophilus (Florajen3 Capsule) 1 each TID PO Last administered on 10/08/16 12:33; Admin Dose 1 EACH; Start 10/03/16 at 21:00 Hydromorphone HCl (Dilaudid) 0.5 mg Q4H PRN IV PAIN Last administered on 07:50; Admin Dose 0.5 MG; Start 10/06/16 at 18:30 Promethazine HCl/ Codeine (Phenergan/ Codeine) 10 ml BID PRN PO COUGH; Start at 20:30 Hydromorphone HCl 2 mg 2 mg ONCE PRN IV PAIN LEVEL 8-10 Last administered on 11:09; Admin Dose 2 MG; Start 10/08/16 at 10:30; Stop 10/08/16 at 18:00 Sodium Chloride (NS) 1,000 ml @ 60 mls/hr [id number] IV Last administered on 10/08 11:11; Admin Dose 60 MLS/HR; Start 10/08/16 at 11:00 ALMA ROSARIO NP Oct 08, 2016 14:21
[2016-10-08 15:06] VITALS: BP 111/79; PULSE 104; RESP 18
--- NOTE | 2016-10-08 16:59 | PN ---
Date/Time of Note Date/Time of Note DATE: 10/08/16 TIME: 16:56 Assessment/Plan VTE Prophylaxis VTE Prophylaxis Intervention: other Lines/Catheters IV [facility] P[facility] Line Central line still needed: Yes Urinary Cath still in place: Yes Reason Cath still needed: urinary retention Assessment/Plan Assessment/Plan -Hyponatremia- -We will get nephrology consult, Dr. Celeste Zapata notified -BMP a.m. labs -Elevated Liver function tests- plan for barium swallow study tomorrow - per GI consult- Dr Holm -If persistent elevation of LFT, and the patient is symptomatic, possible plan for MRCP. - patient is asymptomatic - am LFTs -- Left lung squamous cell carcinoma.- blood tinged sputum x1 reported by patient -Phenergan With Codeine 10 mL p.o. twice daily for cough-effective - hypotension - Recurrent sepsis sec toSIRS - per ID- on vanco/aztreonam - Polymicrobial urinary tract infection. - Chronic obstructive pulmonary disease- no Shortness of breath noted - Multiple decubitus ulcers with history of debridement. - Methicillin-resistant Staphylococcus aureus nares colonization. - Cachexia. - Dysphagia with G-tube placement - Chronic urinary retention. - Anemia of chronic disease. - Stool for occult blood most negative Further recommendations based on clinical course. Plan of care discussed with Dr. Dozier. Subjective 24 Hr Interval Summary Free Text/Dictation Complains of back pain cough is better, no blood his sputum reported. Afebrile. Sodium is 129 today. Get the nephrology consult. Discussed with staff. Exam/Review of Systems Vital Signs Vitals Vital Signs Date Time Temp Pulse Resp B/P Pulse Ox O2 Delivery O2 Flow Rate FiO2 10/08/16 15:06 104 18 111/79 92 2.0 10/08/16 08:00 Nasal Cannula 10/08/16 07:40 98.0 Intake and Output 10/07/16 10/07/16 10/08/16 15:00 23:00 07:00 Intake Total 1022.8 ml 920 ml Output Total 1250 ml 1400 ml Balance -227.2 ml -480 ml Exam Constitutional: alert Psych: no complaints Eyes: EOMI ENMT: nl external ears & nose Neck: non-tender Respiratory: clear to auscultation Cardiovascular: nl pulses Gastrointestinal: non-tender, other (G-tube intact, tolerates tube feeding.), soft Musculoskeletal: muscle weakness Extremities: normal pulses Neurological: nl speech Skin: other (Multiple wound) Lymph: nontender Results Result Diagram: 10/08/1660210/08/16 06 Results 24 hrs Laboratory Tests Test 10/08/16 06:03 White Blood Count 15.4 H Red Blood Count 3.54 L Hemoglobin 9.0 L Hematocrit 29.8 L Mean Corpuscular Volume 84.2 Mean Corpuscular Hemoglobin 25.4 L Mean Corpuscular Hemoglobin Concent 30.2 L Red Cell Distribution Width 16.9 H Platelet Count 364 Mean Platelet Volume 8.3 Neutrophils % 73.7 Lymphocytes % 12.0 L Monocytes % 9.9 Eosinophils % 3.1 Basophils % 0.7 Nucleated Red Blood Cells % 0.0 Neutrophils # 11.3 H Lymphocytes # 1.9 Monocytes # 1.5 H Eosinophils # 0.5 Basophils # 0.1 Nucleated Red Blood Cells # 0.0 Sodium Level 129 L Potassium Level 3.9 Chloride Level 89 L Carbon Dioxide Level 33 H Anion Gap 11 Blood Urea Nitrogen 13 Creatinine 0.37 L Glucose Level 132 Calcium Level 8.5 Medications Medications Current Medications Ondansetron HCl (Zofran Inj) 4 mg Q6 PRN IV NAUSEA AND/OR VOMITING; Start 09/26 at 22:30 Acetaminophen (Tylenol Tab) 650 mg Q6H PRN PO PAIN AND OR ELEVATED TEMP Last administered on 10/08/16 04:35; Admin Dose 650 MG; Start 09/26/16 at 23:00 Alprazolam (Xanax) 0.5 mg Q12 PRN PO ANXIETY Last administered on 10/04/16 20: 29; Admin Dose 0.5 MG; Start 09/26/16 at 23:00 Ascorbic Acid (Vitamin C) 500 mg BID PO Last administered on 10/08/16 08:24; Admin Dose 500 MG; Start 09/27/16 at 09:00 Atorvastatin Calcium (Lipitor) 20 mg QHS PO Last administered on 10/07/16 20: 45; Admin Dose 20 MG; Start 09/27/16 at 21:00 Diazepam (Valium) 10 mg DAILY PO Last administered on 10/08/16 08:24; Admin Dose 10 MG; Start 09/27/16 at 09:00 Docusate Sodium (Colace) 100 mg Q12H PRN PO CONSTIPATION; Start 09/26/16 at 23: 00 Duloxetine HCl (Cymbalta) 20 mg DAILY PO Last administered on 10/08/16 08:24; Admin Dose 20 MG; Start 09/27/16 at 09:00 Ferrous Sulfate (Ferrous Sulfate (Ec)) 325 mg BID PO Last administered on 08:24; Admin Dose 325 MG; Start 09/27/16 at 09:00 Gabapentin (Neurontin) 300 mg TID PO Last administered on 10/08/16 12:34; Admin Dose 300 MG; Start 09/27/16 at 09:00 Zolpidem Tartrate (Ambien) 5 mg QHS PRN PO INSOMNIA Last administered on 02:35; Admin Dose 5 MG; Start 09/26/16 at 23:00 Collagenase (Santyl) 1 applic DAILY TOP Last administered on 10/07/16 09:22; Admin Dose 1 APPLIC; Start 09/27/16 at 09:00 Collagenase (Santyl) 1 applic PRN PRN TOP SOILED OR DISLODGED DRESSING; Start 09/27/16 at 05:00 Lansoprazole (Prevacid) 30 mg DAILY@06 GTB Last administered on 10/08/16 06:10 ; Admin Dose 30 MG; Start 09/28/16 at 06:00 Mupirocin (Bactroban) 1 applic BID TOP Last administered on 10/08/16 09:55; Admin Dose 1 APPLIC; Start 09/28/16 at 21:00 Cromolyn Sodium (Nasalcrom) 1 spray QID NASAL Last administered on 10/08/16 12 :35; Admin Dose 1 SPRAY; Start 09/29/16 at 11:02 Linezolid (Zyvox) 600 mg BID PO Last administered on 10/08/16 08:24; Admin Dose 600 MG; Start 09/29/16 at 21:00 Amikacin Sulfate (Amikacin Iv Per Pharmacy) AMIKACIN PER PHARMACY NOTE XX ; Start 09/29/16 at 15:30 Morphine Sulfate (Ms Contin (Er)) 60 mg Q6 PO Last administered on 10/08/16 12 :34; Admin Dose 60 MG; Start 10/01/16 at 18:00 Phenol (Cepastat Lozenge) 1 lozenge Q2H PRN MT SORE THROAT Last administered on 10/02/16 12:48; Admin Dose 1 LOZENGE; Start 10/01/16 at 19:00 IV Flush 10 ml 10 ml PRN PRN IV IV PROTOCOL; Start 10/02/16 at 19:00 Amikacin Sulfate/ Dextrose (Amikacin/D5W) 102.8 ml @ 102.8 mls/ hr Q24H IVPB Last administered on 10/08/16 09:55; Admin Dose 102.8 MLS/HR; Start 10/04/16 at 09:00 Lactobacillus Acidophilus (Florajen3 Capsule) 1 each TID PO Last administered on 10/08/16 12:33; Admin Dose 1 EACH; Start 10/03/16 at 21:00 Hydromorphone HCl (Dilaudid) 0.5 mg Q4H PRN IV PAIN Last administered on 15:05; Admin Dose 0.5 MG; Start 10/06/16 at 18:30 Promethazine HCl/ Codeine (Phenergan/ Codeine) 10 ml BID PRN PO COUGH; Start at 20:30 Hydromorphone HCl 2 mg 2 mg ONCE PRN IV PAIN LEVEL 8-10 Last administered on 11:09; Admin Dose 2 MG; Start 10/08/16 at 10:30; Stop 10/08/16 at 18:00 Sodium Chloride (NS) 1,000 ml @ 60 mls/hr [id number] IV Last administered on 10/08 11:11; Admin Dose 60 MLS/HR; Start 10/08/16 at 11:00 VIKASH CASTANEDA Oct 08, 2016 16:59
[2016-10-08 20:01] VITALS: BP 101/68; RESP 18
[2016-10-08] MEDS: ATORVASTATIN 20 MG TAB PO SCH (21:25)
--- NOTE | 2016-10-08 22:26 | CONS ---
Date/Time of Note Date/Time of Note DATE: 10/08/16 TIME: 22:23 Assessment/Plan Assessment/Plan Additional Assessment/Plan SIRS Intermittent hypotension Diastolic congestive heart failure, compensated Pulmonary hypertension Preserved ejection fraction Tricuspid valve regurgitation Lung cancer -BP still with episodes of hypotension. Cont to hold anti-HTN meds. Remains asymptomatic Consultation Date/Type/Reason Admit Date/Time Sep 26, 2016 at 20:07 Type of Consultation: cv 24 HR Interval Summary Free Text/Dictation denies sob, cp Exam/Review of Systems Vital Signs Vitals Vital Signs Date Time Temp Pulse Resp B/P Pulse Ox O2 Delivery O2 Flow Rate FiO2 10/08/16 21:03 2.0 10/08/16 21:03 20 Nasal Cannula 10/08/16 20:01 98.9 101 101/68 92 Intake and Output 10/07/16 10/07/16 10/08/16 15:00 23:00 07:00 Intake Total 1022.8 ml 920 ml Output Total 1250 ml 1400 ml Balance -227.2 ml -480 ml Exam sleeping but arrousable, follows commands, nad Constitutional: frail Head: normocephalic Respiratory: other (course bs b/L, no wheezing) Cardiovascular: other (s1s2), regular rate and rhythm Gastrointestinal: bowel sounds, non-tender, soft Extremities: other (no edema) Results Result Diagram: 10/08/16 0603 10/08/16 0603 Results 24 hrs Laboratory Tests Test 10/08/16 06:03 White Blood Count 15.4 H Red Blood Count 3.54 L Hemoglobin 9.0 L Hematocrit 29.8 L Mean Corpuscular Volume 84.2 Mean Corpuscular Hemoglobin 25.4 L Mean Corpuscular Hemoglobin Concent 30.2 L Red Cell Distribution Width 16.9 H Platelet Count 364 Mean Platelet Volume 8.3 Neutrophils % 73.7 Lymphocytes % 12.0 L Monocytes % 9.9 Eosinophils % 3.1 Basophils % 0.7 Nucleated Red Blood Cells % 0.0 Neutrophils # 11.3 H Lymphocytes # 1.9 Monocytes # 1.5 H Eosinophils # 0.5 Basophils # 0.1 Nucleated Red Blood Cells # 0.0 Sodium Level 129 L Potassium Level 3.9 Chloride Level 89 L Carbon Dioxide Level 33 H Anion Gap 11 Blood Urea Nitrogen 13 Creatinine 0.37 L Glucose Level 132 Calcium Level 8.5 Medications Medications Current Medications Ondansetron HCl (Zofran Inj) 4 mg Q6 PRN IV NAUSEA AND/OR VOMITING; Start 09/26 at 22:30 Acetaminophen (Tylenol Tab) 650 mg Q6H PRN PO PAIN AND OR ELEVATED TEMP Last administered on 10/08/16 04:35; Admin Dose 650 MG; Start 09/26/16 at 23:00 Alprazolam (Xanax) 0.5 mg Q12 PRN PO ANXIETY Last administered on 10/04/16 20: 29; Admin Dose 0.5 MG; Start 09/26/16 at 23:00 Ascorbic Acid (Vitamin C) 500 mg BID PO Last administered on 10/08/16 21:24; Admin Dose 500 MG; Start 09/27/16 at 09:00 Atorvastatin Calcium (Lipitor) 20 mg QHS PO Last administered on 10/08/16 21: 25; Admin Dose 20 MG; Start 09/27/16 at 21:00 Diazepam (Valium) 10 mg DAILY PO Last administered on 10/08/16 08:24; Admin Dose 10 MG; Start 09/27/16 at 09:00 Docusate Sodium (Colace) 100 mg Q12H PRN PO CONSTIPATION; Start 09/26/16 at 23: 00 Duloxetine HCl (Cymbalta) 20 mg DAILY PO Last administered on 10/08/16 08:24; Admin Dose 20 MG; Start 09/27/16 at 09:00 Ferrous Sulfate (Ferrous Sulfate (Ec)) 325 mg BID PO Last administered on 21:24; Admin Dose 325 MG; Start 09/27/16 at 09:00 Gabapentin (Neurontin) 300 mg TID PO Last administered on 10/08/16 21:25; Admin Dose 300 MG; Start 09/27/16 at 09:00 Zolpidem Tartrate (Ambien) 5 mg QHS PRN PO INSOMNIA Last administered on 02:35; Admin Dose 5 MG; Start 09/26/16 at 23:00 Collagenase (Santyl) 1 applic DAILY TOP Last administered on 10/07/16 09:22; Admin Dose 1 APPLIC; Start 09/27/16 at 09:00 Collagenase (Santyl) 1 applic PRN PRN TOP SOILED OR DISLODGED DRESSING; Start 09/27/16 at 05:00 Lansoprazole (Prevacid) 30 mg DAILY@06 GTB Last administered on 10/08/16 06:10 ; Admin Dose 30 MG; Start 09/28/16 at 06:00 Mupirocin (Bactroban) 1 applic BID TOP Last administered on 10/08/16 21:26; Admin Dose 1 APPLIC; Start 09/28/16 at 21:00 Cromolyn Sodium (Nasalcrom) 1 spray QID NASAL Last administered on 10/08/16 21 :26; Admin Dose 1 SPRAY; Start 09/29/16 at 11:02 Linezolid (Zyvox) 600 mg BID PO Last administered on 10/08/16 21:25; Admin Dose 600 MG; Start 09/29/16 at 21:00 Amikacin Sulfate (Amikacin Iv Per Pharmacy) AMIKACIN PER PHARMACY NOTE XX ; Start 09/29/16 at 15:30 Morphine Sulfate (Ms Contin (Er)) 60 mg Q6 PO Last administered on 10/08/16 17 :44; Admin Dose 60 MG; Start 10/01/16 at 18:00 Phenol (Cepastat Lozenge) 1 lozenge Q2H PRN MT SORE THROAT Last administered on 10/02/16 12:48; Admin Dose 1 LOZENGE; Start 10/01/16 at 19:00 IV Flush 10 ml 10 ml PRN PRN IV IV PROTOCOL; Start 10/02/16 at 19:00 Amikacin Sulfate/ Dextrose (Amikacin/D5W) 102.8 ml @ 102.8 mls/ hr Q24H IVPB Last administered on 10/08/16 09:55; Admin Dose 102.8 MLS/HR; Start 10/04/16 at 09:00 Lactobacillus Acidophilus (Florajen3 Capsule) 1 each TID PO Last administered on 10/08/16 21:37; Admin Dose 1 EACH; Start 10/03/16 at 21:00 Hydromorphone HCl (Dilaudid) 0.5 mg Q4H PRN IV PAIN Last administered on 19:08; Admin Dose 0.5 MG; Start 10/06/16 at 18:30 Promethazine HCl/ Codeine 10 ml 10 ml BID PRN PO COUGH; Start 10/07/16 at 20:30 Sodium Chloride (NS) 1,000 ml @ 60 mls/hr [id number] IV Last administered on 10/08t 11:11; Admin Dose 60 MLS/HR; Start 10/08/16 at 11:00 Artemio Tipton DO Oct 08, 2016 22:26
--- NOTE | 2016-10-08 23:33 | CONS ---
DATE OF ADMISSION: 09/26/2016 DATE OF CONSULTATION: 10/08/2016 TYPE OF CONSULTATION: Nephrology. REFERRING PHYSICIAN: Dr. Dozier REASON FOR CONSULTATION: Hyponatremia not improving, resistant, persistent hyponatremia. HISTORY OF PRESENT ILLNESS: This is a 66-year-old female who has a past medical history of hyperten vladimir, history of recurrent polymicrobial UTI, history of recent acute respiratory failure in 08/2016 secondary to COPD exacerbation. At that time, the patient had ____ C difficile colitis and also robles d acute kidney injury on chronic kidney disease with hyponatremia secondary to cardiorenal syndrome. The patient has chronic debility with cachexia and multiple decubitus ulcers with a history of boris ridements. She presented this time with systemic inflammatory response syndrome, chronic with mild tachycardia and chronically elevated WBC. The patient has a wound VAC in place. She has been dionna rgic, not improving, and she was noted to have hyponatremia 129, potassium 3.9, chloride is ____, an d the bicarbonate is 33. Renal has been consulted for hyponatremia. PAST MEDICAL HISTORY: History of possible lung cancer, hypertension, history of sacral decubitus ul cer, history of hypothyroidism, history of chronic urinary incontinence. PAST SURGICAL HISTORY: History of previous debridement for sacral decubitus ulcers and right elbow surgery. SOCIAL HISTORY: The patient is currently senior living facility. FAMILY HISTORY: Not available. PHYSICAL EXAMINATION: VITAL SIGNS: Temperature 98.9, heart rate 104, respirations 18, blood pressure 101/68, saturation i s 92% on 2 L nasal cannula. GENERAL: Awake, alert, moderate distress. HEENT: Normal. Oropharynx clear. NECK: Supple. No JVD, no lymphadenopathy. LUNGS: Clear to auscultation. No crackles, no wheezes. HEART: S1, S2 with regular rhythm. No murmur. ABDOMEN: Soft, nontender, nondistended. Bowel sounds are present. EXTREMITIES: The patient is very cachectic, thin built with multiple decubitus ulcers. LABORATORY DATA: 1. Sodium 129, potassium 3.9, chloride 89, bicarbonate 33, BUN 13, creatinine 0.3, glucose 122, christian cium 8.5. Ferritin 2380. LFTs are normal. WBC 15.4, hemoglobin 9, platelet count 364. 2. Prothrombin time 16.4, PTT 52.6, INR 1.31. Urinalysis shows few phosphate crystals, amorphous p hosphates with trace urinary protein. 3. Urine toxicology is negative. 4. Stool for occult blood negative. IMPRESSION: This is a 66-year-old female who has been admitted for systemic inflammatory response s yndrome possibly secondary to urinary tract infection. Her urine culture is growing Proteus mirabil is and Klebsiella pneumoniae. Both are susceptible to amikacin and Zosyn. The wound culture is agustin wing enterococcus, klebsiella, extended spectrum beta lactamase citrobacter. Renal has been consult ed for: 1. Hyponatremia, likely secondary to hypovolemic hyponatremia. 2. Status post acute kidney injury on chronic kidney disease due to systemic inflammatory response syndrome. 3. Systemic inflammatory response syndrome. 4. History of recurrent polymicrobial urinary tract infections. 5. History of dementia. 6. History of previous cerebrovascular accident. 7. History of chronic obstructive pulmonary disease, recently had acute respiratory failure seconda ry to chronic obstructive pulmonary disease exacerbation. 8. History of urinary retention with a chronic George catheter in place. 9. Chronic debility with cachexia. 10. Multiple decubitus ulcers with a history of debridement. 11. History of degenerative joint disease of spine. 12. History of hypertension and hypertensive heart disease with mild to moderate concentric left ve ntricular hypertrophy and echocardiogram with diastolic dysfunction stage I. PLAN: Thank you, Dr. Dozier, for this consultation. 1. I will continue the patient on IV fluids, NS at 60 mL/hour. Plan is to give 1 L of NS and then re-assess sodium in the morning. 2. The patient is currently on IV antibiotics, amikacin and Zosyn. It should be renally dosed due to the patient's susceptibility to get acute kidney injury. 3. The patient is also on vitamin C, so will continue to monitor her for any crystals in the urine. 4. Continue the other medications. The patient is currently seen on the med/surg floor, and she wi ll be followed up along with the primary care service, cardiology service and infectious disease ser vice. Once again, thank you, Dr. Dozier, for this consultation. I will continue to follow this patient along with you. Dictated By: DIONNE SAUCEDA MD, KP/SANDER Conf#: [id number] DID#: [id number]
[2016-10-09] MEDS: HYDROmorphONE 1 MG/ML SYG IV PRN ×3 (03:11→22:12)
[2016-10-09] MEDS: SOD CHLORIDE 0.9% 1,000 ML IV SCH ×2 (03:40→20:20)
[2016-10-09] MEDS: morphine (ER) 30 MG TAB PO SCH ×5 (05:39→23:42)
[2016-10-09] MEDS: LANSOPRAZOLE 30 MG CAP GTB SCH (05:40)
[2016-10-09 05:58] LABS: ADD SCAN DIFF NO
[2016-10-09] MEDS: LEVOTHYROXINE 125 MCG TAB PO SCH (06:11)
[2016-10-09 06:12] LABS: ABNORMAL IP MESSAGE 1; BASOPHIL # 0.1 10^3/ul (0.0-0.1); BASOPHILS % 0.5 % (0.0-2.0); EOSINOPHILS # 0.8 10^3/ul (0.0-0.5); EOSINOPHILS % 4.6 % (0.0-7.0); HEMATOCRIT 27.1 % (37.0-47.0); HEMOGLOBIN 8.1 g/dl (12.0-16.0); LYMPHOCYTES # 2.4 10^3/ul (0.8-2.9); LYMPHOCYTES % 14.3 % (15.0-51.0); MEAN CORPUSCULAR HEMOGLOBIN 25.3 pg (29.0-33.0); MEAN CORPUSCULAR HGB CONC 29.9 g/dl (32.0-37.0); MEAN CORPUSCULAR VOLUME 84.7 fl (82.0-101.0); MEAN PLATELET VOLUME 8.9 fl (7.4-10.4); MONOCYTE # 1.9 10^3/ul (0.3-0.9); MONOCYTES % 11.4 % (0.0-11.0); NEUTROPHIL # 11.4 10^3/ul (1.6-7.5); NEUTROPHILS % 68.7 % (39.0-77.0); PLATELET COUNT 369 10^3/UL (140-415); RED CELL DISTRIBUTION WIDTH 16.9 % (11.5-14.5); WHITE BLOOD COUNT 16.6 10^3/ul (4.8-10.8)
[2016-10-09 06:29] LABS: POTASSIUM 3.7 mmol/L (3.5-5.1)
[2016-10-09 06:32] LABS: CREATININE 0.34 mg/dl (0.44-1.00)
[2016-10-09 06:33] LABS: CALCIUM 8.1 mg/dl (8.4-10.2)
[2016-10-09 07:35] VITALS: BP 97/68; RESP 20
[2016-10-09] MEDS: L ACIDOPHIL/B LACTIS/B LONGUM CAPSULE PO SCH ×3 (08:20→20:38)
[2016-10-09] MEDS: DULOXETINE 20 MG CAP DR PO SCH (08:20)
[2016-10-09] MEDS: AMIKACIN 700 MG in DEXTROSE 5% 100 ML IVPB SCH (08:20)
[2016-10-09] MEDS: ASCORBIC ACID 500 MG TAB PO SCH ×2 (08:20→20:38)
[2016-10-09] MEDS: ZYVOX 600 MG TAB PO SCH ×2 (08:20→20:38)
[2016-10-09] MEDS: GABAPENTIN 300 MG CAP PO SCH ×3 (08:21→20:38)
[2016-10-09] MEDS: DIAZEPAM 5 MG TAB PO SCH (08:21)
[2016-10-09] MEDS: CROMOLYN 4% 26ML NAS INH NASAL SCH ×4 (08:22→20:37)
[2016-10-09] MEDS: COLLAGENASE 30 GM TUBE TOP SCH (08:22)
[2016-10-09] MEDS: MUPIROCIN 2% 22 GM OINT TOP SCH ×2 (08:22→20:38)
--- NOTE | 2016-10-09 12:06 | CONS ---
Date/Time of Note Date/Time of Note DATE: 10/09/16 TIME: 12:04 Assessment/Plan Assessment/Plan Additional Assessment/Plan 1. Hyponatremia, likely secondary to hypovolemic hyponatremia. 2. Status post acute kidney injury on chronic kidney disease due to systemic inflammatory response syndrome. 3. Systemic inflammatory response syndrome. 4. History of recurrent polymicrobial urinary tract infections. 5. History of dementia. 6. History of previous cerebrovascular accident. 7. History of chronic obstructive pulmonary disease, recently had acute respiratory failure secondary to chronic obstructive pulmonary disease exacerbation. 8. History of urinary retention with a chronic George catheter in place. 9. Chronic debility with cachexia. 10. Multiple decubitus ulcers with a history of debridement. 11. History of degenerative joint disease of spine. 12. History of hypertension and hypertensive heart disease with mild to moderate concentric left ventricular hypertrophy and echocardiogram with diastolic dysfunction stage I. PLAN: continue current IVF Na 129, pt likey has Component of SAIDH causing hypoantreia, due to acute pain if continues to run baseline low Na then we will start Tolvaptan vs Na chloride table will follow up . Consultation Date/Type/Reason Admit Date/Time Sep 26, 2016 at 20:07 Initial Consult Date September Type of Consultation: NEPHROLOGY Reason for Consultation hyponatremia, KEIRA Referring Provider: DRE LOBATO MD 24 HR Interval Summary Free Text/Dictation Na 129, Bp stable Exam/Review of Systems Vital Signs Vitals Vital Signs Date Time Temp Pulse Resp B/P Pulse Ox O2 Delivery O2 Flow Rate FiO2 10/09/16 09:55 Nasal Cannula 2.0 10/09/16 07:35 97.9 109 20 97/68 98 Intake and Output 10/08/16 10/08/16 10/09/16 15:00 23:00 07:00 Intake Total 102.8 ml 1340 ml 1500 ml Output Total 900 ml 1200 ml Balance 102.8 ml 440 ml 300 ml Exam GENERAL: Awake, alert, moderate distress. HEENT: Normal. Oropharynx clear. NECK: Supple. No JVD, no lymphadenopathy. LUNGS: Clear to auscultation. No crackles, no wheezes. HEART: S1, S2 with regular rhythm. No murmur. ABDOMEN: Soft, nontender, nondistended. Bowel sounds are present. EXTREMITIES: The patient is very cachectic, thin built with multiple decubitus ulcers. Results Result Diagram: 10/09/1652410/09/16 0525 Results 24 hrs Laboratory Tests Test 10/09/16 05:25 White Blood Count 16.6 H Red Blood Count 3.20 L Hemoglobin 8.1 L Hematocrit 27.1 L Mean Corpuscular Volume 84.7 Mean Corpuscular Hemoglobin 25.3 L Mean Corpuscular Hemoglobin Concent 29.9 L Red Cell Distribution Width 16.9 H Platelet Count 369 Mean Platelet Volume 8.9 Neutrophils % 68.7 Lymphocytes % 14.3 L Monocytes % 11.4 H Eosinophils % 4.6 Basophils % 0.5 Nucleated Red Blood Cells % 0.0 Neutrophils # 11.4 H Lymphocytes # 2.4 Monocytes # 1.9 H Eosinophils # 0.8 H Basophils # 0.1 Nucleated Red Blood Cells # 0.0 Sodium Level 129 L Potassium Level 3.7 Chloride Level 88 L Carbon Dioxide Level 31 Anion Gap 14 Blood Urea Nitrogen 13 Creatinine 0.34 L Glucose Level 113 Calcium Level 8.1 L Medications Medications Current Medications Ondansetron HCl (Zofran Inj) 4 mg Q6 PRN IV NAUSEA AND/OR VOMITING; Start 09/26 at 22:30 Acetaminophen (Tylenol Tab) 650 mg Q6H PRN PO PAIN AND OR ELEVATED TEMP Last administered on 10/08/16 04:35; Admin Dose 650 MG; Start 09/26/16 at 23:00 Alprazolam (Xanax) 0.5 mg Q12 PRN PO ANXIETY Last administered on 10/04/16 20: 29; Admin Dose 0.5 MG; Start 09/26/16 at 23:00 Ascorbic Acid (Vitamin C) 500 mg BID PO Last administered on 10/09/16 08:20; Admin Dose 500 MG; Start 09/27/16 at 09:00 Atorvastatin Calcium (Lipitor) 20 mg QHS PO Last administered on 10/08/16 21: 25; Admin Dose 20 MG; Start 09/27/16 at 21:00 Diazepam (Valium) 10 mg DAILY PO Last administered on 10/09/16 08:21; Admin Dose 10 MG; Start 09/27/16 at 09:00 Docusate Sodium (Colace) 100 mg Q12H PRN PO CONSTIPATION; Start 09/26/16 at 23: 00 Duloxetine HCl (Cymbalta) 20 mg DAILY PO Last administered on 10/09/16 08:20; Admin Dose 20 MG; Start 09/27/16 at 09:00 Ferrous Sulfate (Ferrous Sulfate (Ec)) 325 mg BID PO Last administered on 21:24; Admin Dose 325 MG; Start 09/27/16 at 09:00 Gabapentin (Neurontin) 300 mg TID PO Last administered on 10/09/16 08:21; Admin Dose 300 MG; Start 09/27/16 at 09:00 Zolpidem Tartrate (Ambien) 5 mg QHS PRN PO INSOMNIA Last administered on 02:35; Admin Dose 5 MG; Start 09/26/16 at 23:00 Collagenase (Santyl) 1 applic DAILY TOP Last administered on 10/09/16 08:22; Admin Dose 1 APPLIC; Start 09/27/16 at 09:00 Collagenase (Santyl) 1 applic PRN PRN TOP SOILED OR DISLODGED DRESSING; Start 09/27/16 at 05:00 Lansoprazole (Prevacid) 30 mg DAILY@06 GTB Last administered on 10/09/16 05:40 ; Admin Dose 30 MG; Start 09/28/16 at 06:00 Mupirocin (Bactroban) 1 applic BID TOP Last administered on 10/09/16 08:22; Admin Dose 1 APPLIC; Start 09/28/16 at 21:00 Cromolyn Sodium (Nasalcrom) 1 spray QID NASAL Last administered on 10/09/16 08 :22; Admin Dose 1 SPRAY; Start 09/29/16 at 11:02 Linezolid (Zyvox) 600 mg BID PO Last administered on 10/09/16 08:20; Admin Dose 600 MG; Start 09/29/16 at 21:00 Amikacin Sulfate (Amikacin Iv Per Pharmacy) AMIKACIN PER PHARMACY NOTE XX ; Start 09/29/16 at 15:30 Phenol (Cepastat Lozenge) 1 lozenge Q2H PRN MT SORE THROAT Last administered on 10/02/16 12:48; Admin Dose 1 LOZENGE; Start 10/01/16 at 19:00 IV Flush 10 ml 10 ml PRN PRN IV IV PROTOCOL; Start 10/02/16 at 19:00 Amikacin Sulfate/ Dextrose (Amikacin/D5W) 102.8 ml @ 102.8 mls/ hr Q24H IVPB Last administered on 10/09/16 08:20; Admin Dose 102.8 MLS/HR; Start 10/04/16 at 09:00 Lactobacillus Acidophilus (Florajen3 Capsule) 1 each TID PO Last administered on 10/09/16 08:20; Admin Dose 1 EACH; Start 10/03/16 at 21:00 Hydromorphone HCl (Dilaudid) 0.5 mg Q4H PRN IV PAIN Last administered on 08:23; Admin Dose 0.5 MG; Start 10/06/16 at 18:30 Promethazine HCl/ Codeine 10 ml 10 ml BID PRN PO COUGH; Start 10/07/16 at 20:30 Sodium Chloride (NS) 1,000 ml @ 60 mls/hr [id number] IV Last administered on 10/08 11:11; Admin Dose 60 MLS/HR; Start 10/08/16 at 11:00 Morphine Sulfate (Ms Contin (Er)) 60 mg Q6 PO ; Start 10/09/16 at 12:00 DIONNE SAUCEDA MD Oct 09, 2016 12:06
[2016-10-09] MEDS: FERROUS SULFATE (EC) 325 MG TAB PO SCH (12:16)
[2016-10-09] MEDS ORDERED: BARIUM SULFATE 135 ML (E-Z HD) PO ONE ×2 (12:31→12:32)
--- NOTE | 2016-10-09 15:28 | PN ---
Date/Time of Note Date/Time of Note DATE: 10/09/16 TIME: 15:19 Assessment/Plan VTE Prophylaxis VTE Prophylaxis Intervention: SCD's Lines/Catheters IV [facility] PICC Line Central line still needed: Yes Urinary Cath still in place: Yes Reason Cath still needed: urinary retention Assessment/Plan Chief Complaint/Hosp Course ASSESSMENT AND PLAN: - Recurrent sepsis, resolving. Dr. oCleman is following in infection disease consultation. Continue antibiotics per ID. - Polymicrobial urinary tract infection, this post treatment. - Left lung squamous cell carcinoma. Patient is not a candidate for chemotherapy. - Chronic obstructive pulmonary disease. Continue breathing treatment. - Multiple decubitus ulcers with history of debridement. Continue current wound care. Wound culture is growing polymicrobial organisms. Continue antibiotics per ID. - Methicillin-resistant Staphylococcus aureus nares colonization. - Cachexia. Optimize nutrition. - Dysphagia with G-tube placement. Continue G-tube feeding. Aspiration precaution. - Chronic urinary retention. - Hypothyroidism. TSH is within normal limits. Continue Synthroid. - Anemia of chronic disease. - Hyponatremia, Dr. Zapata is following in nephrology consultation. Further recommendations based on clinical course. Plan of care discussed with Dr. Dozier. Problems: Subjective 24 Hr Interval Summary Free Text/Dictation Patient status post wound VAC change yesterday, remains afebrile, patient is currently on antibiotics for polymicrobial wound infection, pain is well controlled, tolerates G-tube feeding well. Exam/Review of Systems Vital Signs Vitals Vital Signs Date Time Temp Pulse Resp B/P Pulse Ox O2 Delivery O2 Flow Rate FiO2 10/09/16 09:55 Nasal Cannula 2.0 10/09/16 07:35 97.9 109 20 97/68 98 Intake and Output 10/08/16 10/08/16 10/09/16 15:00 23:00 07:00 Intake Total 102.8 ml 1340 ml 1500 ml Output Total 900 ml 1200 ml Balance 102.8 ml 440 ml 300 ml Exam Constitutional: alert, oriented Psych: no complaints Head: atraumatic, normocephalic Eyes: nl conjunctiva ENMT: nl external ears & nose Neck: non-tender, supple Respiratory: clear to auscultation, normal air movement Cardiovascular: nl pulses, regular rate and rhythm Gastrointestinal: non-tender, other (G-tube), soft Musculoskeletal: nl extremities to inspection Extremities: normal pulses Neurological: DIRECT CUSTOMER SERVICE REPRESENTATIVE II-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 Results Result Diagram: 10/09/1652410/09/16 0525 Results 24 hrs Laboratory Tests Test 10/09/16 05:25 White Blood Count 16.6 H Red Blood Count 3.20 L Hemoglobin 8.1 L Hematocrit 27.1 L Mean Corpuscular Volume 84.7 Mean Corpuscular Hemoglobin 25.3 L Mean Corpuscular Hemoglobin Concent 29.9 L Red Cell Distribution Width 16.9 H Platelet Count 369 Mean Platelet Volume 8.9 Neutrophils % 68.7 Lymphocytes % 14.3 L Monocytes % 11.4 H Eosinophils % 4.6 Basophils % 0.5 Nucleated Red Blood Cells % 0.0 Neutrophils # 11.4 H Lymphocytes # 2.4 Monocytes # 1.9 H Eosinophils # 0.8 H Basophils # 0.1 Nucleated Red Blood Cells # 0.0 Sodium Level 129 L Potassium Level 3.7 Chloride Level 88 L Carbon Dioxide Level 31 Anion Gap 14 Blood Urea Nitrogen 13 Creatinine 0.34 L Glucose Level 113 Calcium Level 8.1 L Medications Medications Current Medications Ondansetron HCl (Zofran Inj) 4 mg Q6 PRN IV NAUSEA AND/OR VOMITING; Start 09/26 at 22:30 Acetaminophen (Tylenol Tab) 650 mg Q6H PRN PO PAIN AND OR ELEVATED TEMP Last administered on 10/08/16 04:35; Admin Dose 650 MG; Start 09/26/16 at 23:00 Alprazolam (Xanax) 0.5 mg Q12 PRN PO ANXIETY Last administered on 10/04/16 20: 29; Admin Dose 0.5 MG; Start 09/26/16 at 23:00 Ascorbic Acid (Vitamin C) 500 mg BID PO Last administered on 10/09/16 08:20; Admin Dose 500 MG; Start 09/27/16 at 09:00 Atorvastatin Calcium (Lipitor) 20 mg QHS PO Last administered on 10/08/16 21: 25; Admin Dose 20 MG; Start 09/27/16 at 21:00 Diazepam (Valium) 10 mg DAILY PO Last administered on 10/09/16 08:21; Admin Dose 10 MG; Start 09/27/16 at 09:00 Docusate Sodium (Colace) 100 mg Q12H PRN PO CONSTIPATION; Start 09/26/16 at 23: 00 Duloxetine HCl (Cymbalta) 20 mg DAILY PO Last administered on 10/09/16 08:20; Admin Dose 20 MG; Start 09/27/16 at 09:00 Ferrous Sulfate (Ferrous Sulfate (Ec)) 325 mg BID PO Last administered on 12:16; Admin Dose 325 MG; Start 09/27/16 at 09:00 Gabapentin (Neurontin) 300 mg TID PO Last administered on 10/09/16 12:15; Admin Dose 300 MG; Start 09/27/16 at 09:00 Zolpidem Tartrate (Ambien) 5 mg QHS PRN PO INSOMNIA Last administered on 02:35; Admin Dose 5 MG; Start 09/26/16 at 23:00 Collagenase (Santyl) 1 applic DAILY TOP Last administered on 10/09/16 08:22; Admin Dose 1 APPLIC; Start 09/27/16 at 09:00 Collagenase (Santyl) 1 applic PRN PRN TOP SOILED OR DISLODGED DRESSING; Start 09/27/16 at 05:00 Lansoprazole (Prevacid) 30 mg DAILY@06 GTB Last administered on 10/09/16 05:40 ; Admin Dose 30 MG; Start 09/28/16 at 06:00 Mupirocin (Bactroban) 1 applic BID TOP Last administered on 10/09/16 08:22; Admin Dose 1 APPLIC; Start 09/28/16 at 21:00 Cromolyn Sodium (Nasalcrom) 1 spray QID NASAL Last administered on 10/09/16 12 :16; Admin Dose 1 SPRAY; Start 09/29/16 at 11:02 Linezolid (Zyvox) 600 mg BID PO Last administered on 10/09/16 08:20; Admin Dose 600 MG; Start 09/29/16 at 21:00 Amikacin Sulfate (Amikacin Iv Per Pharmacy) AMIKACIN PER PHARMACY NOTE XX ; Start 09/29/16 at 15:30 Phenol (Cepastat Lozenge) 1 lozenge Q2H PRN MT SORE THROAT Last administered on 10/02/16 12:48; Admin Dose 1 LOZENGE; Start 10/01/16 at 19:00 IV Flush 10 ml 10 ml PRN PRN IV IV PROTOCOL; Start 10/02/16 at 19:00 Amikacin Sulfate/ Dextrose (Amikacin/D5W) 102.8 ml @ 102.8 mls/ hr Q24H IVPB Last administered on 10/09/16 08:20; Admin Dose 102.8 MLS/HR; Start 10/04/16 at 09:00 Lactobacillus Acidophilus (Florajen3 Capsule) 1 each TID PO Last administered on 10/09/16 12:16; Admin Dose 1 EACH; Start 10/03/16 at 21:00 Hydromorphone HCl (Dilaudid) 0.5 mg Q4H PRN IV PAIN Last administered on 08:23; Admin Dose 0.5 MG; Start 10/06/16 at 18:30 Promethazine HCl/ Codeine 10 ml 10 ml BID PRN PO COUGH; Start 10/07/16 at 20:30 Sodium Chloride (NS) 1,000 ml @ 60 mls/hr [id number] IV Last administered on 10/08 11:11; Admin Dose 60 MLS/HR; Start 10/08/16 at 11:00 Morphine Sulfate (Ms Contin (Er)) 60 mg Q6 PO Last administered on 10/09/16 12 :16; Admin Dose 60 MG; Start 10/09/16 at 12:00 REBECCA ISLAS Oct 09, 2016 15:28
--- NOTE | 2016-10-09 15:43 | RADRPT ---
PROCEDURE: Video swallow examination of the esophagus CLINICAL INDICATION: aspiration TECHNIQUE: Real time video fluoroscopy of the lateral neck was performed. The patient was given b arium in multiple different consistencies by the speech pathologist. Fluoroscopy time: 1.0 minute COMPARISON: None. FINDINGS: Penetration is noted with thin liquids administered by cup, but no aspiration. No penetration or as piration was noted with thick nectar by spoon, cup, or.. No penetration or aspiration was identifie d with purees or solids. IMPRESSION: Penetration without aspiration on thin liquids are administered by cup. Please refer to the speech pathology notes for more information and recommendations. RPTAT: KK Physician Raghu Date Time Electronically viewed and signed by Physician Raghu on 10/09/2016 15:43 /
--- NOTE | 2016-10-09 17:26 | CONS ---
Date/Time of Note Date/Time of Note DATE: 10/09/16 TIME: 17:25 Assessment/Plan Assessment/Plan Additional Assessment/Plan SIRS Intermittent hypotension Diastolic congestive heart failure, compensated Pulmonary hypertension Preserved ejection fraction Tricuspid valve regurgitation Lung cancer -BP trend improved since stopping antihypertensive meds. Cont to hold anti-HTN meds. Consultation Date/Type/Reason Admit Date/Time Sep 26, 2016 at 20:07 Type of Consultation: cv Referring Provider: DRE LOBATO MD 24 HR Interval Summary Free Text/Dictation Denies shortness of breath or chest pain Exam/Review of Systems Vital Signs Vitals Vital Signs Date Time Temp Pulse Resp B/P Pulse Ox O2 Delivery O2 Flow Rate FiO2 10/09/16 09:55 Nasal Cannula 2.0 10/09/16 07:35 97.9 109 20 97/68 98 Intake and Output 10/08/16 10/08/16 10/09/16 14:59 22:59 06:59 Intake Total 102.8 ml 1340 ml 1500 ml Output Total 900 ml 1200 ml Balance 102.8 ml 440 ml 300 ml Exam No apparent distress Constitutional: alert, frail, oriented Head: normocephalic Respiratory: other (Coarse breath sounds bilaterally, no wheezing) Cardiovascular: other (S1-S2 heard), regular rate and rhythm Gastrointestinal: bowel sounds, non-tender, soft Extremities: other (No edema) Results Result Diagram: 10/09/16 0525 10/09/16 0525 Results 24 hrs Laboratory Tests Test 10/09/16 05:25 White Blood Count 16.6 H Red Blood Count 3.20 L Hemoglobin 8.1 L Hematocrit 27.1 L Mean Corpuscular Volume 84.7 Mean Corpuscular Hemoglobin 25.3 L Mean Corpuscular Hemoglobin Concent 29.9 L Red Cell Distribution Width 16.9 H Platelet Count 369 Mean Platelet Volume 8.9 Neutrophils % 68.7 Lymphocytes % 14.3 L Monocytes % 11.4 H Eosinophils % 4.6 Basophils % 0.5 Nucleated Red Blood Cells % 0.0 Neutrophils # 11.4 H Lymphocytes # 2.4 Monocytes # 1.9 H Eosinophils # 0.8 H Basophils # 0.1 Nucleated Red Blood Cells # 0.0 Sodium Level 129 L Potassium Level 3.7 Chloride Level 88 L Carbon Dioxide Level 31 Anion Gap 14 Blood Urea Nitrogen 13 Creatinine 0.34 L Glucose Level 113 Calcium Level 8.1 L Medications Medications Current Medications Ondansetron HCl (Zofran Inj) 4 mg Q6 PRN IV NAUSEA AND/OR VOMITING; Start 09/26 at 22:30 Acetaminophen (Tylenol Tab) 650 mg Q6H PRN PO PAIN AND OR ELEVATED TEMP Last administered on 10/08/16 04:35; Admin Dose 650 MG; Start 09/26/16 at 23:00 Alprazolam (Xanax) 0.5 mg Q12 PRN PO ANXIETY Last administered on 10/04/16 20: 29; Admin Dose 0.5 MG; Start 09/26/16 at 23:00 Ascorbic Acid (Vitamin C) 500 mg BID PO Last administered on 10/09/16 08:20; Admin Dose 500 MG; Start 09/27/16 at 09:00 Atorvastatin Calcium (Lipitor) 20 mg QHS PO Last administered on 10/08/16 21: 25; Admin Dose 20 MG; Start 09/27/16 at 21:00 Diazepam (Valium) 10 mg DAILY PO Last administered on 10/09/16 08:21; Admin Dose 10 MG; Start 09/27/16 at 09:00 Docusate Sodium (Colace) 100 mg Q12H PRN PO CONSTIPATION; Start 09/26/16 at 23: 00 Duloxetine HCl (Cymbalta) 20 mg DAILY PO Last administered on 10/09/16 08:20; Admin Dose 20 MG; Start 09/27/16 at 09:00 Gabapentin (Neurontin) 300 mg TID PO Last administered on 10/09/16 12:15; Admin Dose 300 MG; Start 09/27/16 at 09:00 Zolpidem Tartrate (Ambien) 5 mg QHS PRN PO INSOMNIA Last administered on 02:35; Admin Dose 5 MG; Start 09/26/16 at 23:00 Collagenase (Santyl) 1 applic DAILY TOP Last administered on 10/09/16 08:22; Admin Dose 1 APPLIC; Start 09/27/16 at 09:00 Collagenase (Santyl) 1 applic PRN PRN TOP SOILED OR DISLODGED DRESSING; Start 09/27/16 at 05:00 Lansoprazole (Prevacid) 30 mg DAILY@06 GTB Last administered on 10/09/16 05:40 ; Admin Dose 30 MG; Start 09/28/16 at 06:00 Mupirocin (Bactroban) 1 applic BID TOP Last administered on 10/09/16 08:22; Admin Dose 1 APPLIC; Start 09/28/16 at 21:00 Cromolyn Sodium (Nasalcrom) 1 spray QID NASAL Last administered on 10/09/16 17 :08; Admin Dose 1 SPRAY; Start 09/29/16 at 11:02 Linezolid (Zyvox) 600 mg BID PO Last administered on 10/09/16 08:20; Admin Dose 600 MG; Start 09/29/16 at 21:00 Amikacin Sulfate (Amikacin Iv Per Pharmacy) AMIKACIN PER PHARMACY NOTE XX ; Start 09/29/16 at 15:30 Phenol (Cepastat Lozenge) 1 lozenge Q2H PRN MT SORE THROAT Last administered on 10/02/16 12:48; Admin Dose 1 LOZENGE; Start 10/01/16 at 19:00 IV Flush 10 ml 10 ml PRN PRN IV IV PROTOCOL; Start 10/02/16 at 19:00 Amikacin Sulfate/ Dextrose (Amikacin/D5W) 102.8 ml @ 102.8 mls/ hr Q24H IVPB Last administered on 10/09/16 08:20; Admin Dose 102.8 MLS/HR; Start 10/04/16 at 09:00 Lactobacillus Acidophilus (Florajen3 Capsule) 1 each TID PO Last administered on 10/09/16 12:16; Admin Dose 1 EACH; Start 10/03/16 at 21:00 Hydromorphone HCl (Dilaudid) 0.5 mg Q4H PRN IV PAIN Last administered on 08:23; Admin Dose 0.5 MG; Start 10/06/16 at 18:30 Promethazine HCl/ Codeine 10 ml 10 ml BID PRN PO COUGH; Start 10/07/16 at 20:30 Sodium Chloride (NS) 1,000 ml @ 60 mls/hr [id number] IV Last administered on 10/08 11:11; Admin Dose 60 MLS/HR; Start 10/08/16 at 11:00 Morphine Sulfate (Ms Contin (Er)) 60 mg Q6 PO Last administered on 10/09/16 17 :07; Admin Dose 60 MG; Start 10/09/16 at 12:00 Artemio Tipton DO Oct 09, 2016 17:26
[2016-10-09] MEDS: ACETAMINOPHEN 325 MG TAB PO PRN (19:01)
--- NOTE | 2016-10-09 19:58 | CONS ---
Date/Time of Note Date/Time of Note DATE: 10/09/16 TIME: 19:55 Assessment/Plan Assessment/Plan Chief Complaint/Hosp Course ID PROGRESS NOTE ABX: Amikacin + Zyvox 24H INTERVAL SUMMARY * Was more alert earlier today -- agreed to have wound vac changed after refusing * SPEECH Tx note appreciated: FOR ORAL GRATIFICATION puree/thin liquid by spoon or small sip by cup. NO STRAW. Continue TF for nutrition * 66 yo F w/chronic debility,-- confused, calm at present -- intermittent agitation and irritability at times * No F/C/N/V/D PHYSICAL EXAMINATION: GENERAL: This is a chronically ill-appearing, frail 66 yo F HEENT: Unremarkable -- NECK: Supple, trachea midline. CHEST: Rise symmetrical without dyspnea ABDOMEN: Refuses exam EXTREMITIES: Moves all extremities, Without cyanosis. ID ASSESSMENT: 66 yo F w/PMHx Dementia, CVA(chronic left thalamic lacunar infarction), Tobacco/ COPD-Emphysema/Lung Cancer re-admit with: 1. SIRS => RESOLVING * Afebrile * Chronic mild tachycardia - albuterol * Chronic elevated WBC 2. Recurrent polymicrobial UTI * urine culture growing Proteus mirabilis and Klebsiella pneumoniae, both susceptible to amikacin and Zosyn. 3. Urinary retention with chronic George=>Probable neurogenic bladder 5. Status post acute respiratory failure secondary to chronic obstructive pulmonary disease exacerbation. 6. Chronic debility w/Cachexia. 7. Multiple decubitus with a history of debridement. * Wound culture growing Enterococcus, Klebsiella, extended-spectrum beta- lactamase, Citrobacter. 8. H/O DJD spine -> Hx of lumbar spinal fusion 9 .H/O Hypertension w/HTN heart disease mild-mod cLVH on ECHO w/diastolic dysfunction STG I (+) MRSA Nares screen ->Bactroban INVASIVES: PICC, FC, Peg ALLERGY: PENICILLIN. CURRENT ABX: Amikacin + Zyvox ID PLAN: * Continue wound vac Tx for decubs, continue nutrition, pain meds * Continue ABX . Problems: Consultation Date/Type/Reason Admit Date/Time Sep 26, 2016 at 20:07 Type of Consultation: cv Referring Provider: DRE LOBATO MD Exam/Review of Systems Vital Signs Vitals Vital Signs Date Time Temp Pulse Resp B/P Pulse Ox O2 Delivery O2 Flow Rate FiO2 4/24/17 09:55 Nasal Cannula 2.0 10/09/16 07:35 97.9 109 20 97/68 98 Intake and Output 10/08/16 10/08/16 10/09/16 15:00 23:00 07:00 Intake Total 102.8 ml 1340 ml 1500 ml Output Total 900 ml 1200 ml Balance 102.8 ml 440 ml 300 ml Results Result Diagram: 10/09/1625 10/09/16 0525 Results 24 hrs Laboratory Tests Test 10/09/16 05:25 White Blood Count 16.6 H Red Blood Count 3.20 L Hemoglobin 8.1 L Hematocrit 27.1 L Mean Corpuscular Volume 84.7 Mean Corpuscular Hemoglobin 25.3 L Mean Corpuscular Hemoglobin Concent 29.9 L Red Cell Distribution Width 16.9 H Platelet Count 369 Mean Platelet Volume 8.9 Neutrophils % 68.7 Lymphocytes % 14.3 L Monocytes % 11.4 H Eosinophils % 4.6 Basophils % 0.5 Nucleated Red Blood Cells % 0.0 Neutrophils # 11.4 H Lymphocytes # 2.4 Monocytes # 1.9 H Eosinophils # 0.8 H Basophils # 0.1 Nucleated Red Blood Cells # 0.0 Sodium Level 129 L Potassium Level 3.7 Chloride Level 88 L Carbon Dioxide Level 31 Anion Gap 14 Blood Urea Nitrogen 13 Creatinine 0.34 L Glucose Level 113 Calcium Level 8.1 L Medications Medications Current Medications Ondansetron HCl (Zofran Inj) 4 mg Q6 PRN IV NAUSEA AND/OR VOMITING; Start 09/26 at 22:30 Acetaminophen (Tylenol Tab) 650 mg Q6H PRN PO PAIN AND OR ELEVATED TEMP Last administered on 10/09/16 19:01; Admin Dose 650 MG; Start 09/26/16 at 23:00 Alprazolam (Xanax) 0.5 mg Q12 PRN PO ANXIETY Last administered on 10/04/16 20: 29; Admin Dose 0.5 MG; Start 09/26/16 at 23:00 Ascorbic Acid (Vitamin C) 500 mg BID PO Last administered on 10/09/16 08:20; Admin Dose 500 MG; Start 09/27/16 at 09:00 Atorvastatin Calcium (Lipitor) 20 mg QHS PO Last administered on 10/08/16 21: 25; Admin Dose 20 MG; Start 09/27/16 at 21:00 Diazepam (Valium) 10 mg DAILY PO Last administered on 10/09/16 08:21; Admin Dose 10 MG; Start 09/27/16 at 09:00 Docusate Sodium (Colace) 100 mg Q12H PRN PO CONSTIPATION; Start 09/26/16 at 23: 00 Duloxetine HCl (Cymbalta) 20 mg DAILY PO Last administered on 10/09/16 08:20; Admin Dose 20 MG; Start 09/27/16 at 09:00 Gabapentin (Neurontin) 300 mg TID PO Last administered on 10/09/16 12:15; Admin Dose 300 MG; Start 09/27/16 at 09:00 Zolpidem Tartrate (Ambien) 5 mg QHS PRN PO INSOMNIA Last administered on 02:35; Admin Dose 5 MG; Start 09/26/16 at 23:00 Collagenase (Santyl) 1 applic DAILY TOP Last administered on 10/09/16 08:22; Admin Dose 1 APPLIC; Start 09/27/16 at 09:00 Collagenase (Santyl) 1 applic PRN PRN TOP SOILED OR DISLODGED DRESSING; Start 09/27/16 at 05:00 Lansoprazole (Prevacid) 30 mg DAILY@06 GTB Last administered on 10/09/16 05:40 ; Admin Dose 30 MG; Start 09/28/16 at 06:00 Mupirocin (Bactroban) 1 applic BID TOP Last administered on 10/09/16 08:22; Admin Dose 1 APPLIC; Start 09/28/16 at 21:00 Cromolyn Sodium (Nasalcrom) 1 spray QID NASAL Last administered on 10/09/16 17 :08; Admin Dose 1 SPRAY; Start 09/29/16 at 11:02 Linezolid (Zyvox) 600 mg BID PO Last administered on 10/09/16 08:20; Admin Dose 600 MG; Start 09/29/16 at 21:00 Amikacin Sulfate (Amikacin Iv Per Pharmacy) AMIKACIN PER PHARMACY NOTE XX ; Start 09/29/16 at 15:30 Phenol (Cepastat Lozenge) 1 lozenge Q2H PRN MT SORE THROAT Last administered on 10/02/16 12:48; Admin Dose 1 LOZENGE; Start 10/01/16 at 19:00 IV Flush 10 ml 10 ml PRN PRN IV IV PROTOCOL; Start 10/02/16 at 19:00 Amikacin Sulfate/ Dextrose (Amikacin/D5W) 102.8 ml @ 102.8 mls/ hr Q24H IVPB Last administered on 10/09/16 08:20; Admin Dose 102.8 MLS/HR; Start 10/04/16 at 09:00 Lactobacillus Acidophilus (Florajen3 Capsule) 1 each TID PO Last administered on 10/09/16 12:16; Admin Dose 1 EACH; Start 10/03/16 at 21:00 Hydromorphone HCl (Dilaudid) 0.5 mg Q4H PRN IV PAIN Last administered on 08:23; Admin Dose 0.5 MG; Start 10/06/16 at 18:30 Promethazine HCl/ Codeine 10 ml 10 ml BID PRN PO COUGH; Start 10/07/16 at 20:30 Sodium Chloride (NS) 1,000 ml @ 60 mls/hr [id number] IV Last administered on 10/08 11:11; Admin Dose 60 MLS/HR; Start 10/08/16 at 11:00 Morphine Sulfate (Ms Contin (Er)) 60 mg Q6 PO Last administered on 10/09/16 17 :07; Admin Dose 60 MG; Start 10/09/16 at 12:00 ALMA ROSARIO NP Oct 09, 2016 19:58
[2016-10-09] MEDS: ATORVASTATIN 20 MG TAB PO SCH (20:38)
[2016-10-09 21:49] VITALS: BP 97/60; RESP 19
[2016-10-10 05:30] LABS: ADD SCAN DIFF NO
[2016-10-10 05:46] LABS: POTASSIUM 3.7 mmol/L (3.5-5.1)
[2016-10-10 05:49] LABS: CREATININE 0.38 mg/dl (0.44-1.00)
[2016-10-10 05:50] LABS: CALCIUM 8.4 mg/dl (8.4-10.2)
[2016-10-10 05:51] LABS: ABNORMAL IP MESSAGE 1; BASOPHIL # 0.1 10^3/ul (0.0-0.1); BASOPHILS % 0.5 % (0.0-2.0); EOSINOPHILS # 0.8 10^3/ul (0.0-0.5); EOSINOPHILS % 5.1 % (0.0-7.0); HEMATOCRIT 26.5 % (37.0-47.0); LYMPHOCYTES # 2.1 10^3/ul (0.8-2.9); LYMPHOCYTES % 13.5 % (15.0-51.0); MEAN CORPUSCULAR HEMOGLOBIN 25.6 pg (29.0-33.0); MEAN CORPUSCULAR HGB CONC 30.2 g/dl (32.0-37.0); MEAN CORPUSCULAR VOLUME 84.7 fl (82.0-101.0); MEAN PLATELET VOLUME 9.2 fl (7.4-10.4); MONOCYTE # 1.9 10^3/ul (0.3-0.9); MONOCYTES % 12.4 % (0.0-11.0); NEUTROPHIL # 10.4 10^3/ul (1.6-7.5); NEUTROPHILS % 67.7 % (39.0-77.0); PLATELET COUNT 387 10^3/UL (140-415); RED BLOOD COUNT 3.13 10^6/ul (4.20-5.40); RED CELL DISTRIBUTION WIDTH 16.8 % (11.5-14.5); WHITE BLOOD COUNT 15.4 10^3/ul (4.8-10.8)
[2016-10-10] MEDS: LANSOPRAZOLE 30 MG CAP GTB SCH (05:51)
[2016-10-10] MEDS: morphine (ER) 30 MG TAB PO SCH ×3 (05:51→17:55)
[2016-10-10] MEDS: LEVOTHYROXINE 125 MCG TAB PO SCH (06:15)
[2016-10-10 07:33] VITALS: BP 94/64; RESP 18
[2016-10-10] MEDS: ZYVOX 600 MG TAB PO SCH ×2 (08:28→20:53)
[2016-10-10] MEDS: DIAZEPAM 5 MG TAB PO SCH (08:28)
[2016-10-10] MEDS: DULOXETINE 20 MG CAP DR PO SCH (08:28)
[2016-10-10] MEDS: ASCORBIC ACID 500 MG TAB PO SCH ×2 (08:28→20:53)
[2016-10-10] MEDS: GABAPENTIN 300 MG CAP PO SCH ×3 (08:28→20:53)
[2016-10-10] MEDS: HYDROmorphONE 1 MG/ML SYG IV PRN ×3 (08:29→21:38)
[2016-10-10] MEDS: CROMOLYN 4% 26ML NAS INH NASAL SCH ×4 (08:29→20:52)
[2016-10-10] MEDS: MUPIROCIN 2% 22 GM OINT TOP SCH ×2 (08:29→20:52)
[2016-10-10] MEDS: COLLAGENASE 30 GM TUBE TOP SCH (08:29)
[2016-10-10] MEDS: L ACIDOPHIL/B LACTIS/B LONGUM CAPSULE PO SCH ×3 (09:23→20:53)
[2016-10-10] MEDS: AMIKACIN 700 MG in DEXTROSE 5% 100 ML IVPB SCH (09:23)
--- NOTE | 2016-10-10 11:26 | CONS ---
Date/Time of Note Date/Time of Note DATE: 10/10/16 TIME: 11:23 Assessment/Plan Assessment/Plan Additional Assessment/Plan 1. Hyponatremia, likely secondary to hypovolemic hyponatremia. 2. Status post acute kidney injury on chronic kidney disease due to systemic inflammatory response syndrome. 3. Systemic inflammatory response syndrome. 4. History of recurrent polymicrobial urinary tract infections. 5. History of dementia. 6. History of previous cerebrovascular accident. 7. History of chronic obstructive pulmonary disease, recently had acute respiratory failure secondary to chronic obstructive pulmonary disease exacerbation. 8. History of urinary retention with a chronic George catheter in place. 9. Chronic debility with cachexia. 10. Multiple decubitus ulcers with a history of debridement. 11. History of degenerative joint disease of spine. 12. History of hypertension and hypertensive heart disease with mild to moderate concentric left ventricular hypertrophy and echocardiogram with diastolic dysfunction stage I. PLAN: continue current IVF, wound vac in place Na 129, pt aidan has Component of SAIDH causing hypoantreia, due to acute pain , she is near her baseline Na around 130 if continues to run baseline low Na then we will start Tolvaptan vs Na chloride table will follow up . Consultation Date/Type/Reason Admit Date/Time Sep 26, 2016 at 20:07 Type of Consultation: NEPHROLOGY Reason for Consultation Hyponatremia Referring Provider: DRE LOBATO MD 24 HR Interval Summary Free Text/Dictation Na 129, agreed to have wound vac applied Exam/Review of Systems Vital Signs Vitals Vital Signs Date Time Temp Pulse Resp B/P Pulse Ox O2 Delivery O2 Flow Rate FiO2 10/10/16 10:39 Nasal Cannula 2.0 10/10/16 07:33 97.6 95 18 94/64 97 Intake and Output 10/09/16 10/09/16 10/10/16 15:00 23:00 07:00 Intake Total 102.8 ml 450 ml Balance 102.8 ml 450 ml Exam GENERAL: Awake, alert, moderate distress. HEENT: Normal. Oropharynx clear. NECK: Supple. No JVD, no lymphadenopathy. LUNGS: Clear to auscultation. No crackles, no wheezes. HEART: S1, S2 with regular rhythm. No murmur. ABDOMEN: Soft, nontender, nondistended. Bowel sounds are present. EXTREMITIES: The patient is very cachectic, thin built with multiple decubitus ulcers. Results Result Diagram: 10/10/16 0450 10/10/16 0450 Results 24 hrs Laboratory Tests Test 10/10/16 04:50 White Blood Count 15.4 H Red Blood Count 3.13 L Hemoglobin 8.0 L Hematocrit 26.5 L Mean Corpuscular Volume 84.7 Mean Corpuscular Hemoglobin 25.6 L Mean Corpuscular Hemoglobin Concent 30.2 L Red Cell Distribution Width 16.8 H Platelet Count 387 Mean Platelet Volume 9.2 Neutrophils % 67.7 Lymphocytes % 13.5 L Monocytes % 12.4 H Eosinophils % 5.1 Basophils % 0.5 Nucleated Red Blood Cells % 0.0 Neutrophils # 10.4 H Lymphocytes # 2.1 Monocytes # 1.9 H Eosinophils # 0.8 H Basophils # 0.1 Nucleated Red Blood Cells # 0.0 Sodium Level 129 L Potassium Level 3.7 Chloride Level 88 L Carbon Dioxide Level 32 H Anion Gap 13 Blood Urea Nitrogen 14 Creatinine 0.38 L Glucose Level 115 Calcium Level 8.4 Medications Medications Current Medications Ondansetron HCl (Zofran Inj) 4 mg Q6 PRN IV NAUSEA AND/OR VOMITING; Start 09/26 at 22:30 Acetaminophen (Tylenol Tab) 650 mg Q6H PRN PO PAIN AND OR ELEVATED TEMP Last administered on 10/09/16 19:01; Admin Dose 650 MG; Start 09/26/16 at 23:00 Alprazolam (Xanax) 0.5 mg Q12 PRN PO ANXIETY Last administered on 10/04/16 20: 29; Admin Dose 0.5 MG; Start 09/26/16 at 23:00 Ascorbic Acid (Vitamin C) 500 mg BID PO Last administered on 10/10/16 08:28; Admin Dose 500 MG; Start 09/27/16 at 09:00 Atorvastatin Calcium (Lipitor) 20 mg QHS PO Last administered on 10/09/16 20: 38; Admin Dose 20 MG; Start 09/27/16 at 21:00 Diazepam (Valium) 10 mg DAILY PO Last administered on 10/10/16 08:28; Admin Dose 10 MG; Start 09/27/16 at 09:00 Docusate Sodium (Colace) 100 mg Q12H PRN PO CONSTIPATION; Start 09/26/16 at 23: 00 Duloxetine HCl (Cymbalta) 20 mg DAILY PO Last administered on 10/10/16 08:28; Admin Dose 20 MG; Start 09/27/16 at 09:00 Gabapentin (Neurontin) 300 mg TID PO Last administered on 10/10/16 08:28; Admin Dose 300 MG; Start 09/27/16 at 09:00 Zolpidem Tartrate (Ambien) 5 mg QHS PRN PO INSOMNIA Last administered on 02:35; Admin Dose 5 MG; Start 09/26/16 at 23:00 Collagenase (Santyl) 1 applic DAILY TOP Last administered on 10/10/16 08:29; Admin Dose 1 APPLIC; Start 09/27/16 at 09:00 Collagenase (Santyl) 1 applic PRN PRN TOP SOILED OR DISLODGED DRESSING; Start 09/27/16 at 05:00 Lansoprazole (Prevacid) 30 mg DAILY@06 GTB Last administered on 10/10/16 05:51 ; Admin Dose 30 MG; Start 09/28/16 at 06:00 Mupirocin (Bactroban) 1 applic BID TOP Last administered on 10/10/16 08:29; Admin Dose 1 APPLIC; Start 09/28/16 at 21:00 Cromolyn Sodium (Nasalcrom) 1 spray QID NASAL Last administered on 10/10/16 08 :29; Admin Dose 1 SPRAY; Start 09/29/16 at 11:02 Linezolid (Zyvox) 600 mg BID PO Last administered on 10/10/16 08:28; Admin Dose 600 MG; Start 09/29/16 at 21:00 Amikacin Sulfate (Amikacin Iv Per Pharmacy) AMIKACIN PER PHARMACY NOTE XX ; Start 09/29/16 at 15:30 Phenol (Cepastat Lozenge) 1 lozenge Q2H PRN MT SORE THROAT Last administered on 10/02/16 12:48; Admin Dose 1 LOZENGE; Start 10/01/16 at 19:00 IV Flush 10 ml 10 ml PRN PRN IV IV PROTOCOL; Start 10/02/16 at 19:00 Amikacin Sulfate/ Dextrose (Amikacin/D5W) 102.8 ml @ 102.8 mls/ hr Q24H IVPB Last administered on 10/10/16 09:23; Admin Dose 102.8 MLS/HR; Start 10/04/16 at 09:00 Lactobacillus Acidophilus (Florajen3 Capsule) 1 each TID PO Last administered on 10/10/16 09:23; Admin Dose 1 EACH; Start 10/03/16 at 21:00 Hydromorphone HCl (Dilaudid) 0.5 mg Q4H PRN IV PAIN Last administered on 08:29; Admin Dose 0.5 MG; Start 10/06/16 at 18:30 Promethazine HCl/ Codeine 10 ml 10 ml BID PRN PO COUGH; Start 10/07/16 at 20:30 Sodium Chloride (NS) 1,000 ml @ 60 mls/hr [id number] IV Last administered on 10/09 20:20; Admin Dose 60 MLS/HR; Start 10/08/16 at 11:00 Morphine Sulfate (Ms Contin (Er)) 60 mg Q6 PO Last administered on 10/10/16 05 :51; Admin Dose 60 MG; Start 10/09/16 at 12:00 DIONNE SAUCEDA MD Oct 10, 2016 11:25
--- NOTE | 2016-10-10 13:50 | PN ---
Date/Time of Note Date/Time of Note DATE: 10/10/16 TIME: 13:47 Assessment/Plan VTE Prophylaxis VTE Prophylaxis Intervention: SCD's Lines/Catheters IV C[facility]ter Type (from [facility]): PICC Line Central line still needed: Yes Urinary Cath still in place: Yes Reason Cath still needed: urinary retention Assessment/Plan Chief Complaint/Hosp Course ASSESSMENT AND PLAN: - Recurrent sepsis, resolving. Dr. Coleman is following in infection disease consultation. Continue antibiotics per ID. - Polymicrobial urinary tract infection, this post treatment. - Left lung squamous cell carcinoma. Patient is not a candidate for chemotherapy. - Chronic obstructive pulmonary disease. Continue breathing treatment. - Multiple decubitus ulcers with history of debridement. Continue current wound care. Wound culture is growing polymicrobial organisms. Continue antibiotics per ID. - Methicillin-resistant Staphylococcus aureus nares colonization. - Cachexia. Optimize nutrition. - Dysphagia with G-tube placement. Continue G-tube feeding. Aspiration precaution. - Chronic urinary retention. Continue George catheter. - Hypothyroidism. TSH is within normal limits. Continue Synthroid. - Anemia of chronic disease. - Hyponatremia, Dr. Zapata is following in nephrology consultation. - Right hand swelling, MRI of right hand. Further recommendations based on clinical course. Plan of care discussed with Dr. Dozier. Problems: Subjective 24 Hr Interval Summary Free Text/Dictation Patient complains of R hand pain, tolerated GT feeding well. Exam/Review of Systems Vital Signs Vitals Vital Signs Date Time Temp Pulse Resp B/P Pulse Ox O2 Delivery O2 Flow Rate FiO2 10/10/16 10:39 Nasal Cannula 2.0 10/10/16 07:33 97.6 95 18 94/64 97 Intake and Output 10/09/16 10/09/16 10/10/16 15:00 23:00 07:00 Intake Total 102.8 ml 450 ml Balance 102.8 ml 450 ml Exam Constitutional: alert, oriented Psych: no complaints Head: atraumatic, normocephalic Eyes: nl conjunctiva ENMT: nl external ears & nose Neck: non-tender, supple Respiratory: clear to auscultation, normal air movement Cardiovascular: nl pulses, regular rate and rhythm Gastrointestinal: non-tender, other (G-tube), soft Musculoskeletal: nl extremities to inspection Extremities: normal pulses Neurological: METAL TESTER II-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 Results Result Diagram: 10/10/16 0450 10/10/16 0450 Results 24 hrs Laboratory Tests Test 10/10/16 04:50 White Blood Count 15.4 H Red Blood Count 3.13 L Hemoglobin 8.0 L Hematocrit 26.5 L Mean Corpuscular Volume 84.7 Mean Corpuscular Hemoglobin 25.6 L Mean Corpuscular Hemoglobin Concent 30.2 L Red Cell Distribution Width 16.8 H Platelet Count 387 Mean Platelet Volume 9.2 Neutrophils % 67.7 Lymphocytes % 13.5 L Monocytes % 12.4 H Eosinophils % 5.1 Basophils % 0.5 Nucleated Red Blood Cells % 0.0 Neutrophils # 10.4 H Lymphocytes # 2.1 Monocytes # 1.9 H Eosinophils # 0.8 H Basophils # 0.1 Nucleated Red Blood Cells # 0.0 Sodium Level 129 L Potassium Level 3.7 Chloride Level 88 L Carbon Dioxide Level 32 H Anion Gap 13 Blood Urea Nitrogen 14 Creatinine 0.38 L Glucose Level 115 Calcium Level 8.4 Medications Medications Current Medications Ondansetron HCl (Zofran Inj) 4 mg Q6 PRN IV NAUSEA AND/OR VOMITING; Start 09/26 at 22:30 Acetaminophen (Tylenol Tab) 650 mg Q6H PRN PO PAIN AND OR ELEVATED TEMP Last administered on 10/09/16 19:01; Admin Dose 650 MG; Start 09/26/16 at 23:00 Alprazolam (Xanax) 0.5 mg Q12 PRN PO ANXIETY Last administered on 10/04/16 20: 29; Admin Dose 0.5 MG; Start 09/26/16 at 23:00 Ascorbic Acid (Vitamin C) 500 mg BID PO Last administered on 10/10/16 08:28; Admin Dose 500 MG; Start 09/27/16 at 09:00 Atorvastatin Calcium (Lipitor) 20 mg QHS PO Last administered on 10/09/16 20: 38; Admin Dose 20 MG; Start 09/27/16 at 21:00 Diazepam (Valium) 10 mg DAILY PO Last administered on 10/10/16 08:28; Admin Dose 10 MG; Start 09/27/16 at 09:00 Docusate Sodium (Colace) 100 mg Q12H PRN PO CONSTIPATION; Start 09/26/16 at 23: 00 Duloxetine HCl (Cymbalta) 20 mg DAILY PO Last administered on 10/10/16 08:28; Admin Dose 20 MG; Start 09/27/16 at 09:00 Gabapentin (Neurontin) 300 mg TID PO Last administered on 10/10/16 11:25; Admin Dose 300 MG; Start 09/27/16 at 09:00 Zolpidem Tartrate (Ambien) 5 mg QHS PRN PO INSOMNIA Last administered on 02:35; Admin Dose 5 MG; Start 09/26/16 at 23:00 Collagenase (Santyl) 1 applic DAILY TOP Last administered on 10/10/16 08:29; Admin Dose 1 APPLIC; Start 09/27/16 at 09:00 Collagenase (Santyl) 1 applic PRN PRN TOP SOILED OR DISLODGED DRESSING; Start 09/27/16 at 05:00 Lansoprazole (Prevacid) 30 mg DAILY@06 GTB Last administered on 10/10/16 05:51 ; Admin Dose 30 MG; Start 09/28/16 at 06:00 Mupirocin (Bactroban) 1 applic BID TOP Last administered on 10/10/16 08:29; Admin Dose 1 APPLIC; Start 09/28/16 at 21:00 Cromolyn Sodium (Nasalcrom) 1 spray QID NASAL Last administered on 10/10/16 11 :25; Admin Dose 1 SPRAY; Start 09/29/16 at 11:02 Linezolid (Zyvox) 600 mg BID PO Last administered on 10/10/16 08:28; Admin Dose 600 MG; Start 09/29/16 at 21:00 Amikacin Sulfate (Amikacin Iv Per Pharmacy) AMIKACIN PER PHARMACY NOTE XX ; Start 09/29/16 at 15:30 Phenol (Cepastat Lozenge) 1 lozenge Q2H PRN MT SORE THROAT Last administered on 10/02/16 12:48; Admin Dose 1 LOZENGE; Start 10/01/16 at 19:00 IV Flush 10 ml 10 ml PRN PRN IV IV PROTOCOL; Start 10/02/16 at 19:00 Amikacin Sulfate/ Dextrose (Amikacin/D5W) 102.8 ml @ 102.8 mls/ hr Q24H IVPB Last administered on 10/10/16 09:23; Admin Dose 102.8 MLS/HR; Start 10/04/16 at 09:00 Lactobacillus Acidophilus (Florajen3 Capsule) 1 each TID PO Last administered on 10/10/16 11:25; Admin Dose 1 EACH; Start 10/03/16 at 21:00 Hydromorphone HCl (Dilaudid) 0.5 mg Q4H PRN IV PAIN Last administered on 08:29; Admin Dose 0.5 MG; Start 10/06/16 at 18:30 Promethazine HCl/ Codeine 10 ml 10 ml BID PRN PO COUGH; Start 10/07/16 at 20:30 Sodium Chloride (NS) 1,000 ml @ 60 mls/hr [id number] IV Last administered on 10/09 20:20; Admin Dose 60 MLS/HR; Start 10/08/16 at 11:00 Morphine Sulfate (Ms Contin (Er)) 60 mg Q6 PO Last administered on 10/10/16 11 :25; Admin Dose 60 MG; Start 10/09/16 at 12:00 REBECCA ISLAS Oct 10, 2016 13:49
--- NOTE | 2016-10-10 14:41 | CONS ---
Date/Time of Note Date/Time of Note DATE: 10/10/16 TIME: 14:37 Assessment/Plan Assessment/Plan Chief Complaint/Hosp Course ID PROGRESS NOTE ABX: Amikacin + Zyvox 24H INTERVAL SUMMARY * Lethargy persists this am -- she was more awake/alert yesterday and allowed for DXG change * (+)Malodorous wounds w/ polymicrobial MDRO * SPEECH Tx note appreciated: FOR ORAL GRATIFICATION puree/thin liquid by spoon or small sip by cup. NO STRAW. Continue TF for nutrition * PHYSICAL EXAMINATION: GENERAL: This is a chronically ill-appearing, frail 66 yo F HEENT: Unremarkable -- NECK: Supple, trachea midline. CHEST: Rise symmetrical without dyspnea ABDOMEN: Refuses exam EXTREMITIES: Moves all extremities, Without cyanosis. ID ASSESSMENT: 66 yo F w/PMHx Dementia, CVA(chronic left thalamic lacunar infarction), Tobacco/ COPD-Emphysema/Lung Cancer re-admit with: 1. SIRS => RESOLVING * Afebrile * Chronic mild tachycardia - albuterol * Chronic elevated WBC 2. Recurrent polymicrobial UTI * urine culture growing Proteus mirabilis and Klebsiella pneumoniae, both susceptible to amikacin and Zosyn. 3. Urinary retention with chronic George=>Probable neurogenic bladder 5. Status post acute respiratory failure secondary to chronic obstructive pulmonary disease exacerbation. 6. Chronic debility w/Cachexia. 7. Multiple decubitus with a history of debridement. * Wound culture WOUND CULTURE Final Organism 1 CITROBACTER AMALONATICUS Organism 2 K PNEUMO ESBL Organism 3 ESCHERICHIA COLI (ESBL) Organism 4 VANCO RESISTANT ENTEROCOCCUS Organism 5 METHICILLIN RESISTANT S.AUREUS Organism 6 PROTEUS MIRABILIS 8. H/O DJD spine -> Hx of lumbar spinal fusion 9 .H/O Hypertension w/HTN heart disease mild-mod cLVH on ECHO w/diastolic dysfunction STG I (+) MRSA Nares screen ->Bactroban INVASIVES: PICC, FC, Peg ALLERGY: PENICILLIN. CURRENT ABX: Amikacin + Zyvox + Flagyl ID PLAN: * Continue wound vac Tx for decubs, continue nutrition, pain meds * Continue ABX + add Flagyl IV due to persistent malodorous wounds -- empiric anaerobic coverage * . Problems: Consultation Date/Type/Reason Admit Date/Time Sep 26, 2016 at 20:07 Type of Consultation: ID Referring Provider: DRE LOBATO MD Exam/Review of Systems Vital Signs Vitals Vital Signs Date Time Temp Pulse Resp B/P Pulse Ox O2 Delivery O2 Flow Rate FiO2 10/10/16 10:39 Nasal Cannula 2.0 10/10/16 07:33 97.6 95 18 94/64 97 Intake and Output 10/09/16 10/09/16 10/10/16 15:00 23:00 07:00 Intake Total 102.8 ml 450 ml Balance 102.8 ml 450 ml Results Result Diagram: 10/10/16 0450 10/10/16 0450 Results 24 hrs Laboratory Tests Test 10/10/16 04:50 White Blood Count 15.4 H Red Blood Count 3.13 L Hemoglobin 8.0 L Hematocrit 26.5 L Mean Corpuscular Volume 84.7 Mean Corpuscular Hemoglobin 25.6 L Mean Corpuscular Hemoglobin Concent 30.2 L Red Cell Distribution Width 16.8 H Platelet Count 387 Mean Platelet Volume 9.2 Neutrophils % 67.7 Lymphocytes % 13.5 L Monocytes % 12.4 H Eosinophils % 5.1 Basophils % 0.5 Nucleated Red Blood Cells % 0.0 Neutrophils # 10.4 H Lymphocytes # 2.1 Monocytes # 1.9 H Eosinophils # 0.8 H Basophils # 0.1 Nucleated Red Blood Cells # 0.0 Sodium Level 129 L Potassium Level 3.7 Chloride Level 88 L Carbon Dioxide Level 32 H Anion Gap 13 Blood Urea Nitrogen 14 Creatinine 0.38 L Glucose Level 115 Calcium Level 8.4 Medications Medications Current Medications Ondansetron HCl (Zofran Inj) 4 mg Q6 PRN IV NAUSEA AND/OR VOMITING; Start 09/26 at 22:30 Acetaminophen (Tylenol Tab) 650 mg Q6H PRN PO PAIN AND OR ELEVATED TEMP Last administered on 10/09/16 19:01; Admin Dose 650 MG; Start 09/26/16 at 23:00 Alprazolam (Xanax) 0.5 mg Q12 PRN PO ANXIETY Last administered on 10/04/16 20: 29; Admin Dose 0.5 MG; Start 09/26/16 at 23:00 Ascorbic Acid (Vitamin C) 500 mg BID PO Last administered on 10/10/16 08:28; Admin Dose 500 MG; Start 09/27/16 at 09:00 Atorvastatin Calcium (Lipitor) 20 mg QHS PO Last administered on 10/09/16 20: 38; Admin Dose 20 MG; Start 09/27/16 at 21:00 Diazepam (Valium) 10 mg DAILY PO Last administered on 10/10/16 08:28; Admin Dose 10 MG; Start 09/27/16 at 09:00 Docusate Sodium (Colace) 100 mg Q12H PRN PO CONSTIPATION; Start 09/26/16 at 23: 00 Duloxetine HCl (Cymbalta) 20 mg DAILY PO Last administered on 10/10/16 08:28; Admin Dose 20 MG; Start 09/27/16 at 09:00 Gabapentin (Neurontin) 300 mg TID PO Last administered on 10/10/16 11:25; Admin Dose 300 MG; Start 09/27/16 at 09:00 Zolpidem Tartrate (Ambien) 5 mg QHS PRN PO INSOMNIA Last administered on 02:35; Admin Dose 5 MG; Start 09/26/16 at 23:00 Collagenase (Santyl) 1 applic DAILY TOP Last administered on 10/10/16 08:29; Admin Dose 1 APPLIC; Start 09/27/16 at 09:00 Collagenase (Santyl) 1 applic PRN PRN TOP SOILED OR DISLODGED DRESSING; Start 09/27/16 at 05:00 Lansoprazole (Prevacid) 30 mg DAILY@06 GTB Last administered on 10/10/16 05:51 ; Admin Dose 30 MG; Start 09/28/16 at 06:00 Mupirocin (Bactroban) 1 applic BID TOP Last administered on 10/10/16 08:29; Admin Dose 1 APPLIC; Start 09/28/16 at 21:00 Cromolyn Sodium (Nasalcrom) 1 spray QID NASAL Last administered on 10/10/16 11 :25; Admin Dose 1 SPRAY; Start 09/29/16 at 11:02 Linezolid (Zyvox) 600 mg BID PO Last administered on 10/10/16 08:28; Admin Dose 600 MG; Start 09/29/16 at 21:00 Amikacin Sulfate (Amikacin Iv Per Pharmacy) AMIKACIN PER PHARMACY NOTE XX ; Start 09/29/16 at 15:30 Phenol (Cepastat Lozenge) 1 lozenge Q2H PRN MT SORE THROAT Last administered on 10/02/16 12:48; Admin Dose 1 LOZENGE; Start 10/01/16 at 19:00 IV Flush 10 ml 10 ml PRN PRN IV IV PROTOCOL; Start 10/02/16 at 19:00 Amikacin Sulfate/ Dextrose (Amikacin/D5W) 102.8 ml @ 102.8 mls/ hr Q24H IVPB Last administered on 10/10/16 09:23; Admin Dose 102.8 MLS/HR; Start 10/04/16 at 09:00 Lactobacillus Acidophilus (Florajen3 Capsule) 1 each TID PO Last administered on 10/10/16 11:25; Admin Dose 1 EACH; Start 10/03/16 at 21:00 Hydromorphone HCl (Dilaudid) 0.5 mg Q4H PRN IV PAIN Last administered on 08:29; Admin Dose 0.5 MG; Start 10/06/16 at 18:30 Promethazine HCl/ Codeine 10 ml 10 ml BID PRN PO COUGH; Start 10/07/16 at 20:30 Sodium Chloride (NS) 1,000 ml @ 60 mls/hr [id number] IV Last administered on 10/09 20:20; Admin Dose 60 MLS/HR; Start 10/08/16 at 11:00 Morphine Sulfate (Ms Contin (Er)) 60 mg Q6 PO Last administered on 10/10/16 11 :25; Admin Dose 60 MG; Start 10/09/16 at 12:00 ALMA ROSARIO NP Oct 10, 2016 14:41
[2016-10-10] MEDS: ACETAMINOPHEN 325 MG TAB PO PRN (16:16)
[2016-10-10] MEDS: SOD CHLORIDE 0.9% 1,000 ML IV SCH (17:56)
[2016-10-10 20:16] VITALS: BP 100/52; RESP 19
[2016-10-10] MEDS: ATORVASTATIN 20 MG TAB PO SCH (20:53)
[2016-10-10] MEDS: metroNIDAZOLE 500 MG/NS (PMX) 250 MG in EVAC CONTAINER 1 BOTTLE IVPB SCH (21:38)
[2016-10-11] MEDS: morphine (ER) 30 MG TAB PO SCH ×5 (00:23→23:21)
[2016-10-11] MEDS: ALBUTEROL/IPRATROPIUM (NEB) 3 ML AMP NEB PRN ×2 (02:29→08:23)
[2016-10-11 05:25] LABS: ADD SCAN DIFF NO
[2016-10-11 05:28] LABS: ABNORMAL IP MESSAGE 1; BASOPHIL # 0.1 10^3/ul (0.0-0.1); BASOPHILS % 0.6 % (0.0-2.0); EOSINOPHILS # 0.7 10^3/ul (0.0-0.5); EOSINOPHILS % 4.3 % (0.0-7.0); HEMOGLOBIN 7.3 g/dl (12.0-16.0); LYMPHOCYTES # 2.1 10^3/ul (0.8-2.9); LYMPHOCYTES % 13.8 % (15.0-51.0); MEAN CORPUSCULAR HEMOGLOBIN 25.8 pg (29.0-33.0); MEAN CORPUSCULAR HGB CONC 30.4 g/dl (32.0-37.0); MEAN CORPUSCULAR VOLUME 84.8 fl (82.0-101.0); MEAN PLATELET VOLUME 8.7 fl (7.4-10.4); MONOCYTE # 1.8 10^3/ul (0.3-0.9); MONOCYTES % 11.9 % (0.0-11.0); NEUTROPHIL # 10.4 10^3/ul (1.6-7.5); NEUTROPHILS % 68.6 % (39.0-77.0); PLATELET COUNT 394 10^3/UL (140-415); RED BLOOD COUNT 2.83 10^6/ul (4.20-5.40); RED CELL DISTRIBUTION WIDTH 16.9 % (11.5-14.5); WHITE BLOOD COUNT 15.2 10^3/ul (4.8-10.8)
[2016-10-11] MEDS: metroNIDAZOLE 500 MG/NS (PMX) 250 MG in EVAC CONTAINER 1 BOTTLE IVPB SCH ×3 (05:49→23:09)
[2016-10-11] MEDS: LANSOPRAZOLE 30 MG CAP GTB SCH (05:49)
[2016-10-11 05:56] LABS: POTASSIUM 3.5 mmol/L (3.5-5.1)
[2016-10-11 05:59] LABS: CREATININE 0.41 mg/dl (0.44-1.00)
[2016-10-11] MEDS: LEVOTHYROXINE 125 MCG TAB PO SCH (05:59)
[2016-10-11 06:00] LABS: CALCIUM 8.3 mg/dl (8.4-10.2)
[2016-10-11 07:45] VITALS: BP 89/61; RESP 18
[2016-10-11] MEDS: ZYVOX 600 MG TAB PO SCH ×2 (08:10→22:00)
[2016-10-11] MEDS: ASCORBIC ACID 500 MG TAB PO SCH ×2 (08:11→22:00)
[2016-10-11] MEDS: DIAZEPAM 5 MG TAB PO SCH (08:11)
[2016-10-11] MEDS: L ACIDOPHIL/B LACTIS/B LONGUM CAPSULE PO SCH ×3 (08:11→22:00)
[2016-10-11] MEDS: DULOXETINE 20 MG CAP DR PO SCH (08:11)
[2016-10-11] MEDS: GABAPENTIN 300 MG CAP PO SCH ×3 (08:11→22:00)
[2016-10-11] MEDS: CROMOLYN 4% 26ML NAS INH NASAL SCH ×4 (08:12→22:01)
[2016-10-11] MEDS: COLLAGENASE 30 GM TUBE TOP SCH (08:12)
[2016-10-11] MEDS: MUPIROCIN 2% 22 GM OINT TOP SCH ×2 (08:12→22:01)
[2016-10-11] MEDS: SOD CHLORIDE 0.9% 1,000 ML IV SCH ×2 (08:14→22:20)
[2016-10-11] MEDS: AMIKACIN 700 MG in DEXTROSE 5% 100 ML IVPB SCH (09:53)
[2016-10-11] MEDS: HYDROmorphONE 1 MG/ML SYG IV PRN (10:51)
[2016-10-11] MEDS ORDERED: VITAMIN A & D 5 GM OINT PACKET TOP ONE (11:18)
--- NOTE | 2016-10-11 11:41 | RADRPT ---
PROCEDURE: CT RIGHT WRIST. CLINICAL INDICATION: Right wrist pain, no known trauma. TECHNIQUE: CT scan of the right wrist was performed on a multi -slice scanner. No IV contrast was administered. Coronal and sagittal and 3-D reformatted images were obtained from the axial source images. The total exam DLP equals 811.55 mGy-cm. The CDTI volume was 42.44 mGy. One or more of the following dose reduction techniques were used: - Automated exposure control. - Adjustment of the mA and/or kV according to patient size . - Use of iterative reconstruction technique. Images were reviewed on a high-resolution PACS workstation. COMPARISON: None. FINDINGS: There is moderate triscaphe the arthrosis consisting of asymmetrical joint space narrowing with subc ortical cyst formation and osteophyte formation seen on coronal bone algorithm image 67 of series 60 1. There is chondrocalcinosis within the triangular fibrocartilage meniscus versus post-traumatic d ystrophic calcification on coronal image number 64. No evidence for fracture. No evidence for bone destructive change. No evidence for erosive change. No malalignment is seen. IMPRESSION: 1. Moderate triscaphe the arthrosis. 2. Chondrocalcinosis versus dystrophic post-traumatic calcification within the triangular fibrocart ilage meniscus. 3. No evidence for bone destructive or erosive change is identified. RPTAT: XX .Raghu Morillo MD, Date Time Electronically viewed and signed by .Raghu Morillo MD, on 10/11/2016 11:40 .T/
--- NOTE | 2016-10-11 17:19 | CONS ---
Date/Time of Note Date/Time of Note DATE: 10/11/16 TIME: 17:18 Assessment/Plan Assessment/Plan Additional Assessment/Plan 1. Hyponatremia, likely secondary to hypovolemic hyponatremia. 2. Status post acute kidney injury on chronic kidney disease due to systemic inflammatory response syndrome. 3. Systemic inflammatory response syndrome. 4. History of recurrent polymicrobial urinary tract infections. 5. History of dementia. 6. History of previous cerebrovascular accident. 7. History of chronic obstructive pulmonary disease, recently had acute respiratory failure secondary to chronic obstructive pulmonary disease exacerbation. 8. History of urinary retention with a chronic George catheter in place. 9. Chronic debility with cachexia. 10. Multiple decubitus ulcers with a history of debridement. 11. History of degenerative joint disease of spine. 12. History of hypertension and hypertensive heart disease with mild to moderate concentric left ventricular hypertrophy and echocardiogram with diastolic dysfunction stage I. PLAN: continue current IVF, wound vac in place Na 129, pt isaiy has Component of SAIDH causing hypoantreia, due to acute pain , she is near her baseline Na around 130 if continues to run baseline low Na then we will start Tolvaptan vs Na chloride table will follow up . Consultation Date/Type/Reason Admit Date/Time Sep 26, 2016 at 20:07 Type of Consultation: NEPHROLOGY Referring Provider: DRE LOBATO MD Exam/Review of Systems Vital Signs Vitals Vital Signs Date Time Temp Pulse Resp B/P Pulse Ox O2 Delivery O2 Flow Rate FiO2 10/11/16 12:19 Nasal Cannula 2.0 10/11/16 08:26 88 20 96 10/11/16 07:45 98.6 89/61 Intake and Output 10/10/16 10/10/16 10/11/16 15:00 23:00 07:00 Intake Total 260 ml 1330 ml Output Total 700 ml Balance 260 ml 630 ml Exam GENERAL: Awake, alert, moderate distress. HEENT: Normal. Oropharynx clear. NECK: Supple. No JVD, no lymphadenopathy. LUNGS: Clear to auscultation. No crackles, no wheezes. HEART: S1, S2 with regular rhythm. No murmur. ABDOMEN: Soft, nontender, nondistended. Bowel sounds are present. EXTREMITIES: The patient is very cachectic, thin built with multiple decubitus ulcers. Results Result Diagram: 10/11/16 0415 10/11/16 0450 Results 24 hrs Laboratory Tests Test 10/11/16 04:15 10/11/16 04:50 White Blood Count 15.2 H Red Blood Count 2.83 L Hemoglobin 7.3 L Hematocrit 24.0 L Mean Corpuscular Volume 84.8 Mean Corpuscular Hemoglobin 25.8 L Mean Corpuscular Hemoglobin Concent 30.4 L Red Cell Distribution Width 16.9 H Platelet Count 394 Mean Platelet Volume 8.7 Neutrophils % 68.6 Lymphocytes % 13.8 L Monocytes % 11.9 H Eosinophils % 4.3 Basophils % 0.6 Nucleated Red Blood Cells % 0.0 Neutrophils # 10.4 H Lymphocytes # 2.1 Monocytes # 1.8 H Eosinophils # 0.7 H Basophils # 0.1 Nucleated Red Blood Cells # 0.0 Sodium Level 129 L Potassium Level 3.5 Chloride Level 88 L Carbon Dioxide Level 32 H Anion Gap 13 Blood Urea Nitrogen 13 Creatinine 0.41 L Glucose Level 121 Calcium Level 8.3 L Medications Medications Current Medications Ondansetron HCl (Zofran Inj) 4 mg Q6 PRN IV NAUSEA AND/OR VOMITING; Start 09/26 at 22:30 Acetaminophen (Tylenol Tab) 650 mg Q6H PRN PO PAIN AND OR ELEVATED TEMP Last administered on 10/10/16 16:16; Admin Dose 650 MG; Start 09/26/16 at 23:00 Alprazolam (Xanax) 0.5 mg Q12 PRN PO ANXIETY Last administered on 10/04/16 20: 29; Admin Dose 0.5 MG; Start 09/26/16 at 23:00 Ascorbic Acid (Vitamin C) 500 mg BID PO Last administered on 10/11/16 08:11; Admin Dose 500 MG; Start 09/27/16 at 09:00 Atorvastatin Calcium (Lipitor) 20 mg QHS PO Last administered on 10/10/16 20: 53; Admin Dose 20 MG; Start 09/27/16 at 21:00 Diazepam (Valium) 10 mg DAILY PO Last administered on 10/11/16 08:11; Admin Dose 10 MG; Start 09/27/16 at 09:00 Docusate Sodium (Colace) 100 mg Q12H PRN PO CONSTIPATION; Start 09/26/16 at 23: 00 Duloxetine HCl (Cymbalta) 20 mg DAILY PO Last administered on 10/11/16 08:11; Admin Dose 20 MG; Start 09/27/16 at 09:00 Gabapentin (Neurontin) 300 mg TID PO Last administered on 10/11/16 12:49; Admin Dose 300 MG; Start 09/27/16 at 09:00 Zolpidem Tartrate (Ambien) 5 mg QHS PRN PO INSOMNIA Last administered on 02:35; Admin Dose 5 MG; Start 09/26/16 at 23:00 Collagenase (Santyl) 1 applic DAILY TOP Last administered on 10/11/16 08:12; Admin Dose 1 APPLIC; Start 09/27/16 at 09:00 Collagenase (Santyl) 1 applic PRN PRN TOP SOILED OR DISLODGED DRESSING; Start 09/27/16 at 05:00 Lansoprazole (Prevacid) 30 mg DAILY@06 GTB Last administered on 10/11/16 05:49 ; Admin Dose 30 MG; Start 09/28/16 at 06:00 Mupirocin (Bactroban) 1 applic BID TOP Last administered on 10/11/16 08:12; Admin Dose 1 APPLIC; Start 09/28/16 at 21:00 Cromolyn Sodium (Nasalcrom) 1 spray QID NASAL Last administered on 10/11/16 17 :01; Admin Dose 1 SPRAY; Start 09/29/16 at 11:02 Linezolid (Zyvox) 600 mg BID PO Last administered on 10/11/16 08:10; Admin Dose 600 MG; Start 09/29/16 at 21:00 Amikacin Sulfate (Amikacin Iv Per Pharmacy) AMIKACIN PER PHARMACY NOTE XX ; Start 09/29/16 at 15:30 Phenol (Cepastat Lozenge) 1 lozenge Q2H PRN MT SORE THROAT Last administered on 10/02/16 12:48; Admin Dose 1 LOZENGE; Start 10/01/16 at 19:00 IV Flush 10 ml 10 ml PRN PRN IV IV PROTOCOL; Start 10/02/16 at 19:00 Amikacin Sulfate/ Dextrose (Amikacin/D5W) 102.8 ml @ 102.8 mls/ hr Q24H IVPB Last administered on 10/11/16 09:53; Admin Dose 102.8 MLS/HR; Start 10/04/16 at 09:00 Lactobacillus Acidophilus (Florajen3 Capsule) 1 each TID PO Last administered on 10/11/16 17:00; Admin Dose 1 EACH; Start 10/03/16 at 21:00 Hydromorphone HCl (Dilaudid) 0.5 mg Q4H PRN IV PAIN Last administered on 10:51; Admin Dose 0.5 MG; Start 10/06/16 at 18:30 Promethazine HCl/ Codeine 10 ml 10 ml BID PRN PO COUGH; Start 10/07/16 at 20:30 Sodium Chloride (NS) 1,000 ml @ 60 mls/hr [id number] IV Last administered on 10/11 08:14; Admin Dose 60 MLS/HR; Start 10/08/16 at 11:00 Morphine Sulfate 60 mg 60 mg Q6 PO Last administered on 10/11/16 17:01; Admin Dose 60 MG; Start 10/09/16 at 12:00 Metronidazole/N/A (Flagyl 500 Mg (Pmx)/Evac Container) 50 ml @ 50 mls/hr Q8 IVPB Last administered on 10/11/16 05:49; Admin Dose 50 MLS/HR; Start at 22:00 DIONNE SAUCEDA MD Oct 11, 2016 17:19
--- NOTE | 2016-10-11 18:37 | PN ---
Date/Time of Note Date/Time of Note DATE: 10/11/16 TIME: 18:35 Assessment/Plan VTE Prophylaxis VTE Prophylaxis Intervention: SCD's Lines/Catheters IV [facility] PICC Line Central line still needed: Yes Urinary Cath still in place: Yes Reason Cath still needed: urinary retention Assessment/Plan Chief Complaint/Hosp Course ASSESSMENT AND PLAN: - Recurrent sepsis, resolving. Dr. Coleman is following in infection disease consultation. Continue antibiotics per ID. - Polymicrobial urinary tract infection, this post treatment. - Left lung squamous cell carcinoma. Patient is not a candidate for chemotherapy. - Chronic obstructive pulmonary disease. Continue breathing treatment. - Multiple decubitus ulcers with history of debridement. Continue current wound care. Wound culture is growing polymicrobial organisms. Continue antibiotics per ID. - Methicillin-resistant Staphylococcus aureus nares colonization. - Cachexia. Optimize nutrition. - Dysphagia with G-tube placement. Continue G-tube feeding. Aspiration precaution. - Chronic urinary retention. Continue George catheter. - Hypothyroidism. TSH is within normal limits. Continue Synthroid. - Anemia of chronic disease. Undergoing blood transfusion. - Hyponatremia, Dr. Zapata is following in nephrology consultation. - Right hand swelling, pending CT scan of the right hand. Further recommendations based on clinical course. Plan of care discussed with Dr. Dozier. Problems: Subjective 24 Hr Interval Summary Free Text/Dictation Patient hemoglobin is 7.3 today, we will transfuse 2 units of packed red blood cells, patient unable to undergo MRI of the right hand, pending CT scan. Exam/Review of Systems Vital Signs Vitals Vital Signs Date Time Temp Pulse Resp B/P Pulse Ox O2 Delivery O2 Flow Rate FiO2 10/11/16 12:19 Nasal Cannula 2.0 10/11/16 08:26 88 20 96 10/11/16 07:45 98.6 89/61 Intake and Output 10/10/16 10/10/16 10/11/16 15:00 23:00 07:00 Intake Total 260 ml 1330 ml Output Total 700 ml Balance 260 ml 630 ml Exam Constitutional: alert, oriented Psych: no complaints Head: atraumatic, normocephalic Eyes: nl conjunctiva ENMT: nl external ears & nose Neck: non-tender, supple Respiratory: clear to auscultation, normal air movement Cardiovascular: nl pulses, regular rate and rhythm Gastrointestinal: non-tender, other (G-tube), soft Musculoskeletal: nl extremities to inspection Extremities: normal pulses Neurological: RETAIL ASSISTANT II-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 Results Result Diagram: 10/11/16 0415 10/11/16 0450 Results 24 hrs Laboratory Tests Test 10/11/16 04:15 10/11/16 04:50 White Blood Count 15.2 H Red Blood Count 2.83 L Hemoglobin 7.3 L Hematocrit 24.0 L Mean Corpuscular Volume 84.8 Mean Corpuscular Hemoglobin 25.8 L Mean Corpuscular Hemoglobin Concent 30.4 L Red Cell Distribution Width 16.9 H Platelet Count 394 Mean Platelet Volume 8.7 Neutrophils % 68.6 Lymphocytes % 13.8 L Monocytes % 11.9 H Eosinophils % 4.3 Basophils % 0.6 Nucleated Red Blood Cells % 0.0 Neutrophils # 10.4 H Lymphocytes # 2.1 Monocytes # 1.8 H Eosinophils # 0.7 H Basophils # 0.1 Nucleated Red Blood Cells # 0.0 Sodium Level 129 L Potassium Level 3.5 Chloride Level 88 L Carbon Dioxide Level 32 H Anion Gap 13 Blood Urea Nitrogen 13 Creatinine 0.41 L Glucose Level 121 Calcium Level 8.3 L Medications Medications Current Medications Ondansetron HCl (Zofran Inj) 4 mg Q6 PRN IV NAUSEA AND/OR VOMITING; Start 09/26 at 22:30 Acetaminophen (Tylenol Tab) 650 mg Q6H PRN PO PAIN AND OR ELEVATED TEMP Last administered on 10/10/16 16:16; Admin Dose 650 MG; Start 09/26/16 at 23:00 Alprazolam (Xanax) 0.5 mg Q12 PRN PO ANXIETY Last administered on 10/04/16 20: 29; Admin Dose 0.5 MG; Start 09/26/16 at 23:00 Ascorbic Acid (Vitamin C) 500 mg BID PO Last administered on 10/11/16 08:11; Admin Dose 500 MG; Start 09/27/16 at 09:00 Atorvastatin Calcium (Lipitor) 20 mg QHS PO Last administered on 10/10/16 20: 53; Admin Dose 20 MG; Start 09/27/16 at 21:00 Diazepam (Valium) 10 mg DAILY PO Last administered on 10/11/16 08:11; Admin Dose 10 MG; Start 09/27/16 at 09:00 Docusate Sodium (Colace) 100 mg Q12H PRN PO CONSTIPATION; Start 09/26/16 at 23: 00 Duloxetine HCl (Cymbalta) 20 mg DAILY PO Last administered on 10/11/16 08:11; Admin Dose 20 MG; Start 09/27/16 at 09:00 Gabapentin (Neurontin) 300 mg TID PO Last administered on 10/11/16 12:49; Admin Dose 300 MG; Start 09/27/16 at 09:00 Zolpidem Tartrate (Ambien) 5 mg QHS PRN PO INSOMNIA Last administered on 02:35; Admin Dose 5 MG; Start 09/26/16 at 23:00 Collagenase (Santyl) 1 applic DAILY TOP Last administered on 10/11/16 08:12; Admin Dose 1 APPLIC; Start 09/27/16 at 09:00 Collagenase (Santyl) 1 applic PRN PRN TOP SOILED OR DISLODGED DRESSING; Start 09/27/16 at 05:00 Lansoprazole (Prevacid) 30 mg DAILY@06 GTB Last administered on 10/11/16 05:49 ; Admin Dose 30 MG; Start 09/28/16 at 06:00 Mupirocin (Bactroban) 1 applic BID TOP Last administered on 10/11/16 08:12; Admin Dose 1 APPLIC; Start 09/28/16 at 21:00 Cromolyn Sodium (Nasalcrom) 1 spray QID NASAL Last administered on 10/11/16 17 :01; Admin Dose 1 SPRAY; Start 09/29/16 at 11:02 Linezolid (Zyvox) 600 mg BID PO Last administered on 10/11/16 08:10; Admin Dose 600 MG; Start 09/29/16 at 21:00 Amikacin Sulfate (Amikacin Iv Per Pharmacy) AMIKACIN PER PHARMACY NOTE XX ; Start 09/29/16 at 15:30 Phenol (Cepastat Lozenge) 1 lozenge Q2H PRN MT SORE THROAT Last administered on 10/02/16 12:48; Admin Dose 1 LOZENGE; Start 10/01/16 at 19:00 IV Flush 10 ml 10 ml PRN PRN IV IV PROTOCOL; Start 10/02/16 at 19:00 Amikacin Sulfate/ Dextrose (Amikacin/D5W) 102.8 ml @ 102.8 mls/ hr Q24H IVPB Last administered on 10/11/16 09:53; Admin Dose 102.8 MLS/HR; Start 10/04/16 at 09:00 Lactobacillus Acidophilus (Florajen3 Capsule) 1 each TID PO Last administered on 10/11/16 17:00; Admin Dose 1 EACH; Start 10/03/16 at 21:00 Hydromorphone HCl (Dilaudid) 0.5 mg Q4H PRN IV PAIN Last administered on 10:51; Admin Dose 0.5 MG; Start 10/06/16 at 18:30 Promethazine HCl/ Codeine 10 ml 10 ml BID PRN PO COUGH; Start 10/07/16 at 20:30 Sodium Chloride (NS) 1,000 ml @ 60 mls/hr [id number] IV Last administered on 10/11 08:14; Admin Dose 60 MLS/HR; Start 10/08/16 at 11:00 Morphine Sulfate 60 mg 60 mg Q6 PO Last administered on 10/11/16 17:01; Admin Dose 60 MG; Start 10/09/16 at 12:00 Metronidazole/N/A (Flagyl 500 Mg (Pmx)/Evac Container) 50 ml @ 50 mls/hr Q8 IVPB Last administered on 10/11/16 05:49; Admin Dose 50 MLS/HR; Start at 22:00 REBECCA ISLAS Oct 11, 2016 18:37
--- NOTE | 2016-10-11 19:32 | CONS ---
Date/Time of Note Date/Time of Note DATE: 10/11/16 TIME: 19:30 Assessment/Plan Assessment/Plan Chief Complaint/Hosp Course ID PROGRESS NOTE ABX: Amikacin + Zyvox + Flagyl 24H INTERVAL SUMMARY * Wrist pain -- ?Pseudogout ? CT revealed 1. Moderate triscaphe the arthrosis.2. Chondrocalcinosis versus dystrophic post-traumatic calcification within the triangular fibrocartilage meniscus.3. No evidence for bone destructive or erosive change is identified. * Clinically status quo -- +)Malodorous wounds w/ polymicrobial MDRO -- Flagyl added * SPEECH Tx note appreciated: FOR ORAL GRATIFICATION puree/thin liquid by spoon or small sip by cup. NO STRAW. Continue TF for nutrition PHYSICAL EXAMINATION: GENERAL: This is a chronically ill-appearing, frail 66 yo F HEENT: Unremarkable -- NECK: Supple, trachea midline. CHEST: Rise symmetrical without dyspnea ABDOMEN: Refuses exam EXTREMITIES: Moves all extremities, Without cyanosis. ID ASSESSMENT: 66 yo F w/PMHx Dementia, CVA(chronic left thalamic lacunar infarction), Tobacco/ COPD-Emphysema/Lung Cancer re-admit with: 1. SIRS => RESOLVING * Afebrile * Chronic mild tachycardia - albuterol * Chronic elevated WBC 2. Recurrent polymicrobial UTI * urine culture growing Proteus mirabilis and Klebsiella pneumoniae, both susceptible to amikacin and Zosyn. 3. Urinary retention with chronic George=>Probable neurogenic bladder 5. Status post acute respiratory failure secondary to chronic obstructive pulmonary disease exacerbation. 6. Chronic debility w/Cachexia. 7. Multiple decubitus with a history of debridement. * Wound culture WOUND CULTURE Final Organism 1 CITROBACTER AMALONATICUS Organism 2 K PNEUMO ESBL Organism 3 ESCHERICHIA COLI (ESBL) Organism 4 VANCO RESISTANT ENTEROCOCCUS Organism 5 METHICILLIN RESISTANT S.AUREUS Organism 6 PROTEUS MIRABILIS 8. H/O DJD spine -> Hx of lumbar spinal fusion 9 .H/O Hypertension w/HTN heart disease mild-mod cLVH on ECHO w/diastolic dysfunction STG I (+) MRSA Nares screen ->Bactroban INVASIVES: PICC, FC, Peg ALLERGY: PENICILLIN. CURRENT ABX: ABX: Amikacin + Zyvox + Flagyl ID PLAN: * Continue wound vac Tx for decubs, continue nutrition, pain meds * Continue ABX + added Flagyl IV due to persistent malodorous wounds -- empiric anaerobic coverage . Problems: Consultation Date/Type/Reason Admit Date/Time Sep 26, 2016 at 20:07 Type of Consultation: ID Referring Provider: DRE LOBATO MD Exam/Review of Systems Vital Signs Vitals Vital Signs Date Time Temp Pulse Resp B/P Pulse Ox O2 Delivery O2 Flow Rate FiO2 10/11/16 12:19 Nasal Cannula 2.0 10/11/16 08:26 88 20 96 10/11/16 07:45 98.6 89/61 Intake and Output 10/10/16 10/10/16 10/11/16 15:00 23:00 07:00 Intake Total 260 ml 1330 ml Output Total 700 ml Balance 260 ml 630 ml Results Result Diagram: 10/11/16 0415 10/11/16 0450 Results 24 hrs Laboratory Tests Test 10/11/16 04:15 10/11/16 04:50 White Blood Count 15.2 H Red Blood Count 2.83 L Hemoglobin 7.3 L Hematocrit 24.0 L Mean Corpuscular Volume 84.8 Mean Corpuscular Hemoglobin 25.8 L Mean Corpuscular Hemoglobin Concent 30.4 L Red Cell Distribution Width 16.9 H Platelet Count 394 Mean Platelet Volume 8.7 Neutrophils % 68.6 Lymphocytes % 13.8 L Monocytes % 11.9 H Eosinophils % 4.3 Basophils % 0.6 Nucleated Red Blood Cells % 0.0 Neutrophils # 10.4 H Lymphocytes # 2.1 Monocytes # 1.8 H Eosinophils # 0.7 H Basophils # 0.1 Nucleated Red Blood Cells # 0.0 Sodium Level 129 L Potassium Level 3.5 Chloride Level 88 L Carbon Dioxide Level 32 H Anion Gap 13 Blood Urea Nitrogen 13 Creatinine 0.41 L Glucose Level 121 Calcium Level 8.3 L Medications Medications Current Medications Ondansetron HCl (Zofran Inj) 4 mg Q6 PRN IV NAUSEA AND/OR VOMITING; Start 09/26 at 22:30 Acetaminophen (Tylenol Tab) 650 mg Q6H PRN PO PAIN AND OR ELEVATED TEMP Last administered on 10/10/16 16:16; Admin Dose 650 MG; Start 09/26/16 at 23:00 Alprazolam (Xanax) 0.5 mg Q12 PRN PO ANXIETY Last administered on 10/04/16 20: 29; Admin Dose 0.5 MG; Start 09/26/16 at 23:00 Ascorbic Acid (Vitamin C) 500 mg BID PO Last administered on 10/11/16 08:11; Admin Dose 500 MG; Start 09/27/16 at 09:00 Atorvastatin Calcium (Lipitor) 20 mg QHS PO Last administered on 10/10/16 20: 53; Admin Dose 20 MG; Start 09/27/16 at 21:00 Diazepam (Valium) 10 mg DAILY PO Last administered on 10/11/16 08:11; Admin Dose 10 MG; Start 09/27/16 at 09:00 Docusate Sodium (Colace) 100 mg Q12H PRN PO CONSTIPATION; Start 09/26/16 at 23: 00 Duloxetine HCl (Cymbalta) 20 mg DAILY PO Last administered on 10/11/16 08:11; Admin Dose 20 MG; Start 09/27/16 at 09:00 Gabapentin (Neurontin) 300 mg TID PO Last administered on 10/11/16 12:49; Admin Dose 300 MG; Start 09/27/16 at 09:00 Zolpidem Tartrate (Ambien) 5 mg QHS PRN PO INSOMNIA Last administered on 02:35; Admin Dose 5 MG; Start 09/26/16 at 23:00 Collagenase (Santyl) 1 applic DAILY TOP Last administered on 10/11/16 08:12; Admin Dose 1 APPLIC; Start 09/27/16 at 09:00 Collagenase (Santyl) 1 applic PRN PRN TOP SOILED OR DISLODGED DRESSING; Start 09/27/16 at 05:00 Lansoprazole (Prevacid) 30 mg DAILY@06 GTB Last administered on 10/11/16 05:49 ; Admin Dose 30 MG; Start 09/28/16 at 06:00 Mupirocin (Bactroban) 1 applic BID TOP Last administered on 10/11/16 08:12; Admin Dose 1 APPLIC; Start 09/28/16 at 21:00 Cromolyn Sodium (Nasalcrom) 1 spray QID NASAL Last administered on 10/11/16 17 :01; Admin Dose 1 SPRAY; Start 09/29/16 at 11:02 Linezolid (Zyvox) 600 mg BID PO Last administered on 10/11/16 08:10; Admin Dose 600 MG; Start 09/29/16 at 21:00 Amikacin Sulfate (Amikacin Iv Per Pharmacy) AMIKACIN PER PHARMACY NOTE XX ; Start 09/29/16 at 15:30 Phenol (Cepastat Lozenge) 1 lozenge Q2H PRN MT SORE THROAT Last administered on 10/02/16 12:48; Admin Dose 1 LOZENGE; Start 10/01/16 at 19:00 IV Flush 10 ml 10 ml PRN PRN IV IV PROTOCOL; Start 10/02/16 at 19:00 Amikacin Sulfate/ Dextrose (Amikacin/D5W) 102.8 ml @ 102.8 mls/ hr Q24H IVPB Last administered on 10/11/16 09:53; Admin Dose 102.8 MLS/HR; Start 10/04/16 at 09:00 Lactobacillus Acidophilus (Florajen3 Capsule) 1 each TID PO Last administered on 10/11/16 17:00; Admin Dose 1 EACH; Start 10/03/16 at 21:00 Hydromorphone HCl (Dilaudid) 0.5 mg Q4H PRN IV PAIN Last administered on 10:51; Admin Dose 0.5 MG; Start 10/06/16 at 18:30 Promethazine HCl/ Codeine 10 ml 10 ml BID PRN PO COUGH; Start 10/07/16 at 20:30 Sodium Chloride (NS) 1,000 ml @ 60 mls/hr [id number] IV Last administered on 10/11 08:14; Admin Dose 60 MLS/HR; Start 10/08/16 at 11:00 Morphine Sulfate 60 mg 60 mg Q6 PO Last administered on 10/11/16 17:01; Admin Dose 60 MG; Start 10/09/16 at 12:00 Metronidazole/N/A (Flagyl 500 Mg (Pmx)/Evac Container) 50 ml @ 50 mls/hr Q8 IVPB Last administered on 10/11/16 05:49; Admin Dose 50 MLS/HR; Start at 22:00 ALMA ROSARIO NP Oct 11, 2016 19:32
[2016-10-11 20:01] VITALS: BP 117/68; RESP 21
[2016-10-11] MEDS: ATORVASTATIN 20 MG TAB PO SCH (22:00)
[2016-10-12] MEDS: HYDROmorphONE 1 MG/ML SYG IV PRN ×4 (02:29→17:48)
[2016-10-12] MEDS: ACETAMINOPHEN 325 MG TAB PO PRN ×2 (04:55→16:09)
[2016-10-12] MEDS: LANSOPRAZOLE 30 MG CAP GTB SCH (05:00)
[2016-10-12] MEDS: SOD CHLORIDE 0.9% 1,000 ML IV SCH (05:00)
[2016-10-12] MEDS: metroNIDAZOLE 500 MG/NS (PMX) 250 MG in EVAC CONTAINER 1 BOTTLE IVPB SCH ×3 (05:00→22:28)
[2016-10-12 05:07] LABS: ADD SCAN DIFF NO
[2016-10-12 05:13] LABS: ABNORMAL IP MESSAGE 1; BASOPHIL # 0.1 10^3/ul (0.0-0.1); BASOPHILS % 0.8 % (0.0-2.0); EOSINOPHILS # 0.6 10^3/ul (0.0-0.5); EOSINOPHILS % 3.5 % (0.0-7.0); HEMATOCRIT 32.9 % (37.0-47.0); HEMOGLOBIN 10.1 g/dl (12.0-16.0); LYMPHOCYTES % 12.6 % (15.0-51.0); MEAN CORPUSCULAR HEMOGLOBIN 25.5 pg (29.0-33.0); MEAN CORPUSCULAR HGB CONC 30.7 g/dl (32.0-37.0); MEAN CORPUSCULAR VOLUME 83.1 fl (82.0-101.0); MEAN PLATELET VOLUME 8.8 fl (7.4-10.4); MONOCYTE # 1.9 10^3/ul (0.3-0.9); MONOCYTES % 11.7 % (0.0-11.0); NEUTROPHIL # 11.4 10^3/ul (1.6-7.5); NEUTROPHILS % 70.7 % (39.0-77.0); PLATELET COUNT 414 10^3/UL (140-415); RED BLOOD COUNT 3.96 10^6/ul (4.20-5.40); RED CELL DISTRIBUTION WIDTH 17.2 % (11.5-14.5); WHITE BLOOD COUNT 16.1 10^3/ul (4.8-10.8)
[2016-10-12 05:27] LABS: POTASSIUM 3.5 mmol/L (3.5-5.1)
[2016-10-12 05:29] LABS: CREATININE 0.43 mg/dl (0.44-1.00)
[2016-10-12 05:30] LABS: CALCIUM 8.5 mg/dl (8.4-10.2)
[2016-10-12] MEDS: morphine (ER) 30 MG TAB PO SCH ×4 (06:03→23:59)
[2016-10-12] MEDS: LEVOTHYROXINE 125 MCG TAB PO SCH (06:03)
[2016-10-12] MEDS: COLLAGENASE 30 GM TUBE TOP SCH (09:00)
[2016-10-12 09:10] VITALS: BP 98/54; RESP 18
[2016-10-12] MEDS: ASCORBIC ACID 500 MG TAB PO SCH ×2 (09:30→22:28)
[2016-10-12] MEDS: ZYVOX 600 MG TAB PO SCH ×2 (09:31→22:28)
[2016-10-12] MEDS: GABAPENTIN 300 MG CAP PO SCH ×3 (09:31→22:28)
[2016-10-12] MEDS: DULOXETINE 20 MG CAP DR PO SCH (09:31)
[2016-10-12] MEDS: L ACIDOPHIL/B LACTIS/B LONGUM CAPSULE PO SCH ×3 (09:33→22:27)
[2016-10-12] MEDS: CROMOLYN 4% 26ML NAS INH NASAL SCH ×4 (09:35→22:28)
[2016-10-12] MEDS: AMIKACIN 700 MG in DEXTROSE 5% 100 ML IVPB SCH (09:35)
[2016-10-12] MEDS: MUPIROCIN 2% 22 GM OINT TOP SCH ×2 (09:46→22:28)
[2016-10-12] MEDS: DIAZEPAM 5 MG TAB PO SCH (11:36)
--- NOTE | 2016-10-12 12:05 | CONS ---
Date/Time of Note Date/Time of Note DATE: 10/12/16 TIME: 12:04 Assessment/Plan Assessment/Plan Additional Assessment/Plan 1. Hyponatremia, likely secondary to hypovolemic hyponatremia. 2. Status post acute kidney injury on chronic kidney disease due to systemic inflammatory response syndrome. 3. Systemic inflammatory response syndrome. 4. History of recurrent polymicrobial urinary tract infections. 5. History of dementia. 6. History of previous cerebrovascular accident. 7. History of chronic obstructive pulmonary disease, recently had acute respiratory failure secondary to chronic obstructive pulmonary disease exacerbation. 8. History of urinary retention with a chronic George catheter in place. 9. Chronic debility with cachexia. 10. Multiple decubitus ulcers with a history of debridement. 11. History of degenerative joint disease of spine. 12. History of hypertension and hypertensive heart disease with mild to moderate concentric left ventricular hypertrophy and echocardiogram with diastolic dysfunction stage I. PLAN: d/c IVF, start sodium chloride tablet 1 gram PO BID Na 130, pt likey has Component of SAIDH causing hypoantreia, due to acute pain , she is near her baseline Na around 130 will follow up . Consultation Date/Type/Reason Admit Date/Time Sep 26, 2016 at 20:07 Type of Consultation: NEPHROLOGY Referring Provider: DRE LOBATO MD 24 HR Interval Summary Free Text/Dictation Na 130, Cr normal, good urine output Exam/Review of Systems Vital Signs Vitals Vital Signs Date Time Temp Pulse Resp B/P Pulse Ox O2 Delivery O2 Flow Rate FiO2 10/12/16 11:46 2.0 10/12/16 09:10 97.9 80 18 98/54 96 10/11/16 20:00 Nasal Cannula Intake and Output 10/11/16 10/11/16 10/12/16 15:00 23:00 07:00 Intake Total 102.8 ml 400 ml 1860 ml Output Total 950 ml Balance 102.8 ml 400 ml 910 ml Exam GENERAL: Awake, alert, moderate distress. HEENT: Normal. Oropharynx clear. NECK: Supple. No JVD, no lymphadenopathy. LUNGS: Clear to auscultation. No crackles, no wheezes. HEART: S1, S2 with regular rhythm. No murmur. ABDOMEN: Soft, nontender, nondistended. Bowel sounds are present. EXTREMITIES: The patient is very cachectic, thin built with multiple decubitus ulcers. Results Result Diagram: 10/12/16 0440 10/12/16 0440 Results 24 hrs Laboratory Tests Test 10/12/16 04:40 White Blood Count 16.1 H Red Blood Count 3.96 #L Hemoglobin 10.1 #L Hematocrit 32.9 #L Mean Corpuscular Volume 83.1 Mean Corpuscular Hemoglobin 25.5 L Mean Corpuscular Hemoglobin Concent 30.7 L Red Cell Distribution Width 17.2 H Platelet Count 414 Mean Platelet Volume 8.8 Neutrophils % 70.7 Lymphocytes % 12.6 L Monocytes % 11.7 H Eosinophils % 3.5 Basophils % 0.8 Nucleated Red Blood Cells % 0.0 Neutrophils # 11.4 H Lymphocytes # 2.0 Monocytes # 1.9 H Eosinophils # 0.6 H Basophils # 0.1 Nucleated Red Blood Cells # 0.0 Sodium Level 130 L Potassium Level 3.5 Chloride Level 89 L Carbon Dioxide Level 32 H Anion Gap 13 Blood Urea Nitrogen 12 Creatinine 0.43 L Glucose Level 112 Calcium Level 8.5 Medications Medications Current Medications Ondansetron HCl (Zofran Inj) 4 mg Q6 PRN IV NAUSEA AND/OR VOMITING; Start 09/26 at 22:30 Acetaminophen (Tylenol Tab) 650 mg Q6H PRN PO PAIN AND OR ELEVATED TEMP Last administered on 10/12/16 04:55; Admin Dose 650 MG; Start 09/26/16 at 23:00 Alprazolam (Xanax) 0.5 mg Q12 PRN PO ANXIETY Last administered on 10/04/16 20: 29; Admin Dose 0.5 MG; Start 09/26/16 at 23:00 Ascorbic Acid (Vitamin C) 500 mg BID PO Last administered on 10/12/16 09:30; Admin Dose 500 MG; Start 09/27/16 at 09:00 Atorvastatin Calcium (Lipitor) 20 mg QHS PO Last administered on 10/11/16 22: 00; Admin Dose 20 MG; Start 09/27/16 at 21:00 Diazepam (Valium) 10 mg DAILY PO Last administered on 10/12/16 11:36; Admin Dose 10 MG; Start 09/27/16 at 09:00 Docusate Sodium (Colace) 100 mg Q12H PRN PO CONSTIPATION; Start 09/26/16 at 23: 00 Duloxetine HCl (Cymbalta) 20 mg DAILY PO Last administered on 10/12/16 09:31; Admin Dose 20 MG; Start 09/27/16 at 09:00 Gabapentin (Neurontin) 300 mg TID PO Last administered on 10/12/16 09:31; Admin Dose 300 MG; Start 09/27/16 at 09:00 Zolpidem Tartrate (Ambien) 5 mg QHS PRN PO INSOMNIA Last administered on 02:35; Admin Dose 5 MG; Start 09/26/16 at 23:00 Collagenase (Santyl) 1 applic DAILY TOP Last administered on 10/11/16 08:12; Admin Dose 1 APPLIC; Start 09/27/16 at 09:00 Collagenase (Santyl) 1 applic PRN PRN TOP SOILED OR DISLODGED DRESSING; Start 09/27/16 at 05:00 Lansoprazole (Prevacid) 30 mg DAILY@06 GTB Last administered on 10/12/16 05:00 ; Admin Dose 30 MG; Start 09/28/16 at 06:00 Mupirocin (Bactroban) 1 applic BID TOP Last administered on 10/12/16 09:46; Admin Dose 1 APPLIC; Start 09/28/16 at 21:00 Cromolyn Sodium (Nasalcrom) 1 spray QID NASAL Last administered on 10/12/16 09 :35; Admin Dose 1 SPRAY; Start 09/29/16 at 11:02 Linezolid (Zyvox) 600 mg BID PO Last administered on 10/12/16 09:31; Admin Dose 600 MG; Start 09/29/16 at 21:00 Amikacin Sulfate (Amikacin Iv Per Pharmacy) AMIKACIN PER PHARMACY NOTE XX ; Start 09/29/16 at 15:30 Phenol (Cepastat Lozenge) 1 lozenge Q2H PRN MT SORE THROAT Last administered on 10/02/16 12:48; Admin Dose 1 LOZENGE; Start 10/01/16 at 19:00 IV Flush 10 ml 10 ml PRN PRN IV IV PROTOCOL; Start 10/02/16 at 19:00 Amikacin Sulfate/ Dextrose (Amikacin/D5W) 102.8 ml @ 102.8 mls/ hr Q24H IVPB Last administered on 10/12/16 09:35; Admin Dose 102.8 MLS/HR; Start 10/04/16 at 09:00 Lactobacillus Acidophilus (Florajen3 Capsule) 1 each TID PO Last administered on 10/12/16 09:33; Admin Dose 1 EACH; Start 10/03/16 at 21:00 Hydromorphone HCl (Dilaudid) 0.5 mg Q4H PRN IV PAIN Last administered on 09:37; Admin Dose 0.5 MG; Start 10/06/16 at 18:30 Promethazine HCl/ Codeine 10 ml 10 ml BID PRN PO COUGH; Start 10/07/16 at 20:30 Sodium Chloride (NS) 1,000 ml @ 60 mls/hr [id number] IV Last administered on 10/12 05:00; Admin Dose 60 MLS/HR; Start 10/08/16 at 11:00 Morphine Sulfate 60 mg 60 mg Q6 PO Last administered on 10/12/16 06:03; Admin Dose 60 MG; Start 10/09/16 at 12:00 Metronidazole/N/A (Flagyl 500 Mg (Pmx)/Evac Container) 50 ml @ 50 mls/hr Q8 IVPB Last administered on 10/12/16 05:00; Admin Dose 50 MLS/HR; Start at 22:00 DIONNE SAUCEDA MD Oct 12, 2016 12:05 DIONNE SAUCEDA MD Oct 12, 2016 12:05
[2016-10-12] MEDS ORDERED: SODIUM CHLORIDE 1 GM TAB PO ONE (12:30)
--- NOTE | 2016-10-12 15:44 | CONS ---
Date/Time of Note Date/Time of Note DATE: 10/12/16 TIME: 15:43 Assessment/Plan Assessment/Plan Additional Assessment/Plan SIRS Intermittent hypotension Diastolic congestive heart failure, compensated Pulmonary hypertension Preserved ejection fraction Tricuspid valve regurgitation Lung cancer -Patient with cough today, denies shortness of breath. Will check chest x-ray. Blood pressure overall remains stable. Consultation Date/Type/Reason Admit Date/Time Sep 26, 2016 at 20:07 Type of Consultation: cv Referring Provider: DRE LOBATO MD 24 HR Interval Summary Free Text/Dictation Patient complaining of cough, denies shortness of breath Exam/Review of Systems Vital Signs Vitals Vital Signs Date Time Temp Pulse Resp B/P Pulse Ox O2 Delivery O2 Flow Rate FiO2 10/12/16 11:46 2.0 10/12/16 09:10 97.9 80 18 98/54 96 10/12/16 08:00 Nasal Cannula Intake and Output 10/11/16 10/11/16 10/12/16 15:00 23:00 07:00 Intake Total 102.8 ml 400 ml 1860 ml Output Total 950 ml Balance 102.8 ml 400 ml 910 ml Exam No apparent distress Constitutional: alert, frail, oriented Head: normocephalic Neck: supple Respiratory: other (Coarse breath sounds bilaterally, no wheezing) Cardiovascular: other (S1-S2 heard), regular rate and rhythm Gastrointestinal: bowel sounds, non-tender, soft Extremities: other (No edema) Results Result Diagram: 10/12/16 0440 10/12/16 0440 Results 24 hrs Laboratory Tests Test 10/12/16 04:40 White Blood Count 16.1 H Red Blood Count 3.96 #L Hemoglobin 10.1 #L Hematocrit 32.9 #L Mean Corpuscular Volume 83.1 Mean Corpuscular Hemoglobin 25.5 L Mean Corpuscular Hemoglobin Concent 30.7 L Red Cell Distribution Width 17.2 H Platelet Count 414 Mean Platelet Volume 8.8 Neutrophils % 70.7 Lymphocytes % 12.6 L Monocytes % 11.7 H Eosinophils % 3.5 Basophils % 0.8 Nucleated Red Blood Cells % 0.0 Neutrophils # 11.4 H Lymphocytes # 2.0 Monocytes # 1.9 H Eosinophils # 0.6 H Basophils # 0.1 Nucleated Red Blood Cells # 0.0 Sodium Level 130 L Potassium Level 3.5 Chloride Level 89 L Carbon Dioxide Level 32 H Anion Gap 13 Blood Urea Nitrogen 12 Creatinine 0.43 L Glucose Level 112 Calcium Level 8.5 Medications Medications Current Medications Ondansetron HCl (Zofran Inj) 4 mg Q6 PRN IV NAUSEA AND/OR VOMITING; Start 09/26 at 22:30 Acetaminophen (Tylenol Tab) 650 mg Q6H PRN PO PAIN AND OR ELEVATED TEMP Last administered on 10/12/16 04:55; Admin Dose 650 MG; Start 09/26/16 at 23:00 Alprazolam (Xanax) 0.5 mg Q12 PRN PO ANXIETY Last administered on 10/04/16 20: 29; Admin Dose 0.5 MG; Start 09/26/16 at 23:00 Ascorbic Acid (Vitamin C) 500 mg BID PO Last administered on 10/12/16 09:30; Admin Dose 500 MG; Start 09/27/16 at 09:00 Atorvastatin Calcium (Lipitor) 20 mg QHS PO Last administered on 10/11/16 22: 00; Admin Dose 20 MG; Start 09/27/16 at 21:00 Diazepam (Valium) 10 mg DAILY PO Last administered on 10/12/16 11:36; Admin Dose 10 MG; Start 09/27/16 at 09:00 Docusate Sodium (Colace) 100 mg Q12H PRN PO CONSTIPATION; Start 09/26/16 at 23: 00 Duloxetine HCl (Cymbalta) 20 mg DAILY PO Last administered on 10/12/16 09:31; Admin Dose 20 MG; Start 09/27/16 at 09:00 Gabapentin (Neurontin) 300 mg TID PO Last administered on 10/12/16 12:36; Admin Dose 300 MG; Start 09/27/16 at 09:00 Zolpidem Tartrate (Ambien) 5 mg QHS PRN PO INSOMNIA Last administered on 02:35; Admin Dose 5 MG; Start 09/26/16 at 23:00 Collagenase (Santyl) 1 applic DAILY TOP Last administered on 10/11/16 08:12; Admin Dose 1 APPLIC; Start 09/27/16 at 09:00 Collagenase (Santyl) 1 applic PRN PRN TOP SOILED OR DISLODGED DRESSING; Start 09/27/16 at 05:00 Lansoprazole (Prevacid) 30 mg DAILY@06 GTB Last administered on 10/12/16 05:00 ; Admin Dose 30 MG; Start 09/28/16 at 06:00 Mupirocin (Bactroban) 1 applic BID TOP Last administered on 10/12/16 09:46; Admin Dose 1 APPLIC; Start 09/28/16 at 21:00 Cromolyn Sodium (Nasalcrom) 1 spray QID NASAL Last administered on 10/12/16 09 :35; Admin Dose 1 SPRAY; Start 09/29/16 at 11:02 Linezolid (Zyvox) 600 mg BID PO Last administered on 10/12/16 09:31; Admin Dose 600 MG; Start 09/29/16 at 21:00 Amikacin Sulfate (Amikacin Iv Per Pharmacy) AMIKACIN PER PHARMACY NOTE XX ; Start 09/29/16 at 15:30 Phenol (Cepastat Lozenge) 1 lozenge Q2H PRN MT SORE THROAT Last administered on 10/02/16 12:48; Admin Dose 1 LOZENGE; Start 10/01/16 at 19:00 IV Flush 10 ml 10 ml PRN PRN IV IV PROTOCOL; Start 10/02/16 at 19:00 Amikacin Sulfate/ Dextrose (Amikacin/D5W) 102.8 ml @ 102.8 mls/ hr Q24H IVPB Last administered on 10/12/16 09:35; Admin Dose 102.8 MLS/HR; Start 10/04/16 at 09:00 Lactobacillus Acidophilus (Florajen3 Capsule) 1 each TID PO Last administered on 10/12/16 12:36; Admin Dose 1 EACH; Start 10/03/16 at 21:00 Hydromorphone HCl (Dilaudid) 0.5 mg Q4H PRN IV PAIN Last administered on 13:36; Admin Dose 0.5 MG; Start 10/06/16 at 18:30 Promethazine HCl/ Codeine (Phenergan/ Codeine) 10 ml BID PRN PO COUGH; Start at 20:30 Morphine Sulfate 60 mg 60 mg Q6 PO Last administered on 10/12/16 12:36; Admin Dose 60 MG; Start 10/09/16 at 12:00 Metronidazole/N/A (Flagyl 500 Mg (Pmx)/Evac Container) 50 ml @ 50 mls/hr Q8 IVPB Last administered on 10/12/16t 13:37; Admin Dose 50 MLS/HR; Start at 22:00 Sodium Chloride (Nacl) 1 gm BID PO ; Start 10/12/16 at 21:00 Miscellaneous Information (*Rx Drug Level Order Reminder*) AMIKACIN TROUGH AT 0, 800 ON... ONCE ONCE XX ; Start 10/13/16 at 08:00; Stop 10/13/16 at 08:01 Artemio Tipton DO Oct 12, 2016 15:44
--- NOTE | 2016-10-12 16:25 | PN ---
Date/Time of Note Date/Time of Note DATE: 10/12/16 TIME: 16:25 Assessment/Plan VTE Prophylaxis VTE Prophylaxis Intervention: other Lines/Catheters IV [facility] Type (from [facility]): PICC Line Central line still needed: Yes Urinary Cath still in place: Yes Reason Cath still needed: urinary retention Assessment/Plan Assessment/Plan - Right hand swelling - CT scan of the right hand- IMPRESSION: . - Moderate triscaphe the arthrosis, Chondrocalcinosis versus dystrophic post-traumatic calcification within the triangular fibrocartilage meniscus.No evidence for bone destructive or erosive change is identified. - pain controlled with dilaudid. - will do venous doppler to r/o any DVT. - Recurrent sepsis. Dr. Coleman is following in infection disease consultation. Continue antibiotics per ID. - Hyponatremia - per Dr. Zapata is following in nephrology consultation. - Polymicrobial urinary tract infection, this post treatment. - Left lung squamous cell carcinoma. Patient is not a candidate for chemotherapy. - Chronic obstructive pulmonary disease. Continue breathing treatment. - Multiple decubitus ulcers with history of debridement. Continue current wound care. Wound culture is growing polymicrobial organisms. Continue antibiotics per ID. - Methicillin-resistant Staphylococcus aureus nares colonization. - Cachexia. Optimize nutrition. - Dysphagia with G-tube placement. - Continue G-tube feeding. Aspiration precaution. - Chronic urinary retention. Continue George catheter. - Hypothyroidism. TSH is within normal limits. Continue Synthroid. Further recommendations based on clinical course. Plan of care discussed with Dr. Dozier. Subjective 24 Hr Interval Summary Free Text/Dictation alert, pleasantly confused, seems comfortable, afebrile, dw staff- dw staff. Eyes: no complaints ENT: no complaints Respiratory: no complaints Exam/Review of Systems Vital Signs Vitals Vital Signs Date Time Temp Pulse Resp B/P Pulse Ox O2 Delivery O2 Flow Rate FiO2 10/12/16 11:46 2.0 10/12/16 09:10 97.9 80 18 98/54 96 10/12/16 08:00 Nasal Cannula Intake and Output 10/11/16 10/11/16 10/12/16 15:00 23:00 07:00 Intake Total 102.8 ml 400 ml 1860 ml Output Total 950 ml Balance 102.8 ml 400 ml 910 ml Exam Constitutional: alert Psych: nl mood/affect Eyes: EOMI ENMT: nl external ears & nose Respiratory: clear to auscultation Gastrointestinal: non-tender, soft Musculoskeletal: other Neurological: other (aler, pleasantly confused) Results Result Diagram: 10/12/1643910/12/16439 Results 24 hrs Laboratory Tests Test 10/12/16 04:40 White Blood Count 16.1 H Red Blood Count 3.96 #L Hemoglobin 10.1 #L Hematocrit 32.9 #L Mean Corpuscular Volume 83.1 Mean Corpuscular Hemoglobin 25.5 L Mean Corpuscular Hemoglobin Concent 30.7 L Red Cell Distribution Width 17.2 H Platelet Count 414 Mean Platelet Volume 8.8 Neutrophils % 70.7 Lymphocytes % 12.6 L Monocytes % 11.7 H Eosinophils % 3.5 Basophils % 0.8 Nucleated Red Blood Cells % 0.0 Neutrophils # 11.4 H Lymphocytes # 2.0 Monocytes # 1.9 H Eosinophils # 0.6 H Basophils # 0.1 Nucleated Red Blood Cells # 0.0 Sodium Level 130 L Potassium Level 3.5 Chloride Level 89 L Carbon Dioxide Level 32 H Anion Gap 13 Blood Urea Nitrogen 12 Creatinine 0.43 L Glucose Level 112 Calcium Level 8.5 Medications Medications Current Medications Ondansetron HCl (Zofran Inj) 4 mg Q6 PRN IV NAUSEA AND/OR VOMITING; Start 09/26 at 22:30 Acetaminophen (Tylenol Tab) 650 mg Q6H PRN PO PAIN AND OR ELEVATED TEMP Last administered on 10/12/16 16:09; Admin Dose 650 MG; Start 09/26/16 at 23:00 Alprazolam (Xanax) 0.5 mg Q12 PRN PO ANXIETY Last administered on 10/04/16 20: 29; Admin Dose 0.5 MG; Start 09/26/16 at 23:00 Ascorbic Acid (Vitamin C) 500 mg BID PO Last administered on 10/12/16 09:30; Admin Dose 500 MG; Start 09/27/16 at 09:00 Atorvastatin Calcium (Lipitor) 20 mg QHS PO Last administered on 10/11/16 22: 00; Admin Dose 20 MG; Start 09/27/16 at 21:00 Diazepam (Valium) 10 mg DAILY PO Last administered on 10/12/16 11:36; Admin Dose 10 MG; Start 09/27/16 at 09:00 Docusate Sodium (Colace) 100 mg Q12H PRN PO CONSTIPATION; Start 09/26/16 at 23: 00 Duloxetine HCl (Cymbalta) 20 mg DAILY PO Last administered on 10/12/16 09:31; Admin Dose 20 MG; Start 09/27/16 at 09:00 Gabapentin (Neurontin) 300 mg TID PO Last administered on 10/12/16 12:36; Admin Dose 300 MG; Start 09/27/16 at 09:00 Zolpidem Tartrate (Ambien) 5 mg QHS PRN PO INSOMNIA Last administered on 02:35; Admin Dose 5 MG; Start 09/26/16 at 23:00 Collagenase (Santyl) 1 applic DAILY TOP Last administered on 10/11/16 08:12; Admin Dose 1 APPLIC; Start 09/27/16 at 09:00 Collagenase (Santyl) 1 applic PRN PRN TOP SOILED OR DISLODGED DRESSING; Start 09/27/16 at 05:00 Lansoprazole (Prevacid) 30 mg DAILY@06 GTB Last administered on 10/12/16 05:00 ; Admin Dose 30 MG; Start 09/28/16 at 06:00 Mupirocin (Bactroban) 1 applic BID TOP Last administered on 10/12/16 09:46; Admin Dose 1 APPLIC; Start 09/28/16 at 21:00 Cromolyn Sodium (Nasalcrom) 1 spray QID NASAL Last administered on 10/12/16 16 :10; Admin Dose 1 SPRAY; Start 09/29/16 at 11:02 Linezolid (Zyvox) 600 mg BID PO Last administered on 10/12/16 09:31; Admin Dose 600 MG; Start 09/29/16 at 21:00 Amikacin Sulfate (Amikacin Iv Per Pharmacy) AMIKACIN PER PHARMACY NOTE XX ; Start 09/29/16 at 15:30 Phenol (Cepastat Lozenge) 1 lozenge Q2H PRN MT SORE THROAT Last administered on 10/02/16 12:48; Admin Dose 1 LOZENGE; Start 10/01/16 at 19:00 IV Flush 10 ml 10 ml PRN PRN IV IV PROTOCOL; Start 10/02/16 at 19:00 Amikacin Sulfate/ Dextrose (Amikacin/D5W) 102.8 ml @ 102.8 mls/ hr Q24H IVPB Last administered on 10/12/16 09:35; Admin Dose 102.8 MLS/HR; Start 10/04/16 at 09:00 Lactobacillus Acidophilus (Florajen3 Capsule) 1 each TID PO Last administered on 10/12/16 12:36; Admin Dose 1 EACH; Start 10/03/16 at 21:00 Hydromorphone HCl (Dilaudid) 0.5 mg Q4H PRN IV PAIN Last administered on 13:36; Admin Dose 0.5 MG; Start 10/06/16 at 18:30 Promethazine HCl/ Codeine (Phenergan/ Codeine) 10 ml BID PRN PO COUGH; Start at 20:30 Morphine Sulfate 60 mg 60 mg Q6 PO Last administered on 10/12/16 12:36; Admin Dose 60 MG; Start 10/09/16 at 12:00 Metronidazole/N/A (Flagyl 500 Mg (Pmx)/Evac Container) 50 ml @ 50 mls/hr Q8 IVPB Last administered on 10/12/16 13:37; Admin Dose 50 MLS/HR; Start at 22:00 Sodium Chloride (Nacl) 1 gm BID PO ; Start 10/12/16 at 21:00 Miscellaneous Information (*Rx Drug Level Order Reminder*) AMIKACIN TROUGH AT 0, 800 ON... ONCE ONCE XX ; Start 10/13/16 at 08:00; Stop 10/13/16 at 08:01 VIKASH CASTANEDA Oct 12, 2016 16:25
--- NOTE | 2016-10-12 17:07 | RADRPT ---
Echocardiogram Report Patient Name: SHERI FERRERA Gender: Female Date: 1950 Study Date: 28-Sep-2016 Sheet Metal Foreman: NICOLE Pedraza [facility] Location: 2261 Ref. Physician: RALPH LUCAS Quality: Adequate Procedures: Transthoracic echocardiogram with complete 2D, M-Mode, and doppler examination. Indications: Congestive Heart Failure. 2D/M Mode Doppler Measurement Value Normal Ranges Measurement Value Normal Ranges LVIDd 2D 3.5 3.5 - 5.6 cm CAS Vmax 1.4 cm2 LVIDs 2D 2.5 2.1 - 4.1 cm CAS VTI 1.5 cm2 FS 2D 29.7 % AV Mean Oswaldo 1.6 m/sec LVPWd 2D 1.1 0.6 - 1.1 cm AV Mean PG 12.0 mmHg IVSd 2D 1.1 0.6 - 1.1 cm AV Peak Oswaldo 2.3 m/sec IVS/LVPW 2D 1.0 AV Peak PG 22.0 mmHg AoR Diam 2D 2.1 2.0 - 3.7 cm AV VTI 40.0 cm LA/Ao 2D 1 0 - 1 LVOT Mean Oswaldo 0.8 m/sec EDV 2D 44.0 cm3 LVOT Mean PG 3.0 mmHg ESV 2D 15.3 cm3 LVOT Peak Oswaldo 1.1 m/sec LA Dimen 2D 2.9 2.3 - 4.0 cm LVOT Peak PG 5.0 mmHg LVOT Diam 1.9 cm LVOT VTI 20.8 cm LVOT Area 2.8 cm2 MV E Peak Oswaldo 1.0 m/sec MV A Peak Oswaldo 1.1 m/sec MV E/A 0.9 MV Decel Time 239 msec MV E/A 0.9 TR Peak Oswaldo 4.3 m/sec TR Peak PG 73.0 mmHg RVSP 76.0 mmHg Findings Left Ventricle: Normal left ventricular systolic function. Normal left ventricular cavity size. Mild concentric left ventricular hypertrophy. Ejection fraction is visually estimated at 55 %. Tissue Doppler/Mitral Doppler indices are consistent with impaired relaxation (Stage I diastolic dysfunction). Right Ventricle: Normal right ventricular size. Normal right ventricular systolic function. Left Atrium: The left atrium is normal in size. Right Atrium: There is mild enlargement of right atrium. Mitral Valve: Mitral valve leaflets appear mildly thickened. Mild mitral annular calcification. Mild mitral valve regurgitation. Aortic Valve: Aortic valve Max velocity 2.33 m/sec. Max PG 22.00 mmHg. Mean PG 14.00 mmHg. Aortic valve area 1.38 cm2. Aortic sclerosis without stenosis. No aortic regurgitation. Tricuspid Valve: Normal appearance of the tricuspid valve. Estimated peak PA systolic pressure 76 mmHg. There is moderate to severe tricuspid regurgitation. Pulmonic Valve: Pulmonic valve not well visualized. Pericardium: Normal pericardium with no significant pericardial effusion. Aorta: Normal aortic root. IVC: Normal size and normal respiratory collapse consistent with normal right atrial pressure. Conclusions 1.Normal left ventricular systolic function. Normal left ventricular cavity size. Mild concentric left ventricular hypertrophy. Ejection fraction is visually estimated at 55 %. Tissue Doppler/Mitral Doppler indices are consistent with impaired relaxation (Stage I diastolic dysfunction). 2.There is mild enlargement of right atrium. 3.Aortic sclerosis without stenosis. No aortic regurgitation. 4.Normal appearance of the tricuspid valve. Estimated peak PA systolic pressure 76 mmHg. There is moderate to severe tricuspid regurgitation. 5.Mild mitral valve regurgitation. 6.Normal pericardium with no significant pericardial effusion. Electronically Signed By: Artemio Tipton 12-Oct-2016 17:06:16 -0700 Patient Name: SHERI FERRERA Study Date: 28-Sep-2016 [id number]
--- NOTE | 2016-10-12 18:14 | RADRPT ---
PROCEDURE: XR Chest. CLINICAL INDICATION: Cough TECHNIQUE: A single portable view of the chest was obtained. COMPARISON: 10/06/2016 FINDINGS: A right PICC line is essentially unchanged. The aorta is tortuous and atherosclerotic. The cardiom ediastinal silhouette is otherwise within normal limits. Again seen is a mass in the left lung which is basically stable. Diffuse reticular interstitial markings once again seen which has not changed significantly. The soft tissues and osseous structures demonstrate benign age related senescent jan nges. IMPRESSION: 1. Left lung mass once again seen which has not changed significantly. 2. Diffuse reticular interstitial markings again noted and are stable. RPTAT: HPNM Physician Monica Date Time Electronically viewed and signed by Tulio Adkins Physician on 10/12/2016 18:14 /
--- NOTE | 2016-10-12 19:42 | CONS ---
Date/Time of Note Date/Time of Note DATE: 10/12/16 TIME: 19:38 Assessment/Plan Assessment/Plan Chief Complaint/Hosp Course ID PROGRESS NOTE ABX: Amikacin + Zyvox + Flagyl 24H INTERVAL SUMMARY * Awake, alert, confused baseline -- calm present --She is O2 dependent for COPD and hx of lung CA * CXR for c/o cough today = no evidence of PNA 1. Left lung mass once again seen which has not changed significantly 2. Diffuse reticular interstitial markings again noted and are stable. * Wrist pain -- ?Pseudogout ? CT revealed 1. Moderate triscaphe the arthrosis.2. Chondrocalcinosis versus dystrophic post-traumatic calcification within the triangular fibrocartilage meniscus.3. No evidence for bone destructive or erosive change is identified. * No fevers, WBC slightly up -- chronically elevated WBC, steroids, wounds === ( +)Malodorous wounds w/ polymicrobial MDRO -- Flagyl added * SPEECH Tx note appreciated: FOR ORAL GRATIFICATION puree/thin liquid by spoon or small sip by cup. NO STRAW. Continue TF for nutrition PHYSICAL EXAMINATION: GENERAL: This is a chronically ill-appearing, frail 66 yo F HEENT: Unremarkable -- NECK: Supple, trachea midline. CHEST: Rise symmetrical without dyspnea ABDOMEN: Refuses exam EXTREMITIES: Moves all extremities, Without cyanosis. ID ASSESSMENT: 66 yo F w/PMHx Dementia, CVA(chronic left thalamic lacunar infarction), Tobacco/ COPD-Emphysema/Lung Cancer re-admit with: 1. SIRS => RESOLVING * Afebrile * Chronic mild tachycardia - albuterol * Chronic elevated WBC 2. Recurrent polymicrobial UTI * urine culture growing Proteus mirabilis and Klebsiella pneumoniae, both susceptible to amikacin and Zosyn. 3. Urinary retention with chronic George=>Probable neurogenic bladder 5. Status post acute respiratory failure secondary to chronic obstructive pulmonary disease exacerbation. * O2 dependent via NC, chronic recurrent cough, CXR w/persistent lung mass 6. Chronic debility w/Cachexia. 7. Multiple decubitus with a history of debridement. * Wound culture WOUND CULTURE Final Organism 1 CITROBACTER AMALONATICUS Organism 2 K PNEUMO ESBL Organism 3 ESCHERICHIA COLI (ESBL) Organism 4 VANCO RESISTANT ENTEROCOCCUS Organism 5 METHICILLIN RESISTANT S.AUREUS Organism 6 PROTEUS MIRABILIS 8. H/O DJD spine -> Hx of lumbar spinal fusion 9 .H/O Hypertension w/HTN heart disease mild-mod cLVH on ECHO w/diastolic dysfunction STG I (+) MRSA Nares screen ->Bactroban INVASIVES: PICC, FC, Peg ALLERGY: PENICILLIN. CURRENT ABX: ABX: Amikacin + Zyvox + Flagyl ID PLAN: * Continue wound vac Tx for decubs, continue nutrition, pain meds * Continue ABX + added Flagyl IV due to persistent malodorous wounds -- empiric anaerobic coverage * ASP Precautions . Problems: Consultation Date/Type/Reason Admit Date/Time Sep 26, 2016 at 20:07 Type of Consultation: cv Referring Provider: DRE LOBATO MD Exam/Review of Systems Vital Signs Vitals Vital Signs Date Time Temp Pulse Resp B/P Pulse Ox O2 Delivery O2 Flow Rate FiO2 10/12/16 11:46 2.0 10/12/16 09:10 97.9 80 18 98/54 96 10/12/16 08:00 Nasal Cannula Intake and Output 10/11/16 10/11/16 10/12/16 15:00 23:00 07:00 Intake Total 102.8 ml 400 ml 1860 ml Output Total 950 ml Balance 102.8 ml 400 ml 910 ml Results Result Diagram: 10/12/160 10/12/16 0440 Results 24 hrs Laboratory Tests Test 10/12/16 04:40 White Blood Count 16.1 H Red Blood Count 3.96 #L Hemoglobin 10.1 #L Hematocrit 32.9 #L Mean Corpuscular Volume 83.1 Mean Corpuscular Hemoglobin 25.5 L Mean Corpuscular Hemoglobin Concent 30.7 L Red Cell Distribution Width 17.2 H Platelet Count 414 Mean Platelet Volume 8.8 Neutrophils % 70.7 Lymphocytes % 12.6 L Monocytes % 11.7 H Eosinophils % 3.5 Basophils % 0.8 Nucleated Red Blood Cells % 0.0 Neutrophils # 11.4 H Lymphocytes # 2.0 Monocytes # 1.9 H Eosinophils # 0.6 H Basophils # 0.1 Nucleated Red Blood Cells # 0.0 Sodium Level 130 L Potassium Level 3.5 Chloride Level 89 L Carbon Dioxide Level 32 H Anion Gap 13 Blood Urea Nitrogen 12 Creatinine 0.43 L Glucose Level 112 Calcium Level 8.5 Medications Medications Current Medications Ondansetron HCl (Zofran Inj) 4 mg Q6 PRN IV NAUSEA AND/OR VOMITING; Start 09/26 at 22:30 Acetaminophen (Tylenol Tab) 650 mg Q6H PRN PO PAIN AND OR ELEVATED TEMP Last administered on 10/12/16 16:09; Admin Dose 650 MG; Start 09/26/16 at 23:00 Alprazolam (Xanax) 0.5 mg Q12 PRN PO ANXIETY Last administered on 10/04/16 20: 29; Admin Dose 0.5 MG; Start 09/26/16 at 23:00 Ascorbic Acid (Vitamin C) 500 mg BID PO Last administered on 10/12/16 09:30; Admin Dose 500 MG; Start 09/27/16 at 09:00 Atorvastatin Calcium (Lipitor) 20 mg QHS PO Last administered on 10/11/16 22: 00; Admin Dose 20 MG; Start 09/27/16 at 21:00 Diazepam (Valium) 10 mg DAILY PO Last administered on 10/12/16 11:36; Admin Dose 10 MG; Start 09/27/16 at 09:00 Docusate Sodium (Colace) 100 mg Q12H PRN PO CONSTIPATION; Start 09/26/16 at 23: 00 Duloxetine HCl (Cymbalta) 20 mg DAILY PO Last administered on 10/12/16 09:31; Admin Dose 20 MG; Start 09/27/16 at 09:00 Gabapentin (Neurontin) 300 mg TID PO Last administered on 10/12/16 12:36; Admin Dose 300 MG; Start 09/27/16 at 09:00 Zolpidem Tartrate (Ambien) 5 mg QHS PRN PO INSOMNIA Last administered on 02:35; Admin Dose 5 MG; Start 09/26/16 at 23:00 Collagenase (Santyl) 1 applic DAILY TOP Last administered on 10/11/16 08:12; Admin Dose 1 APPLIC; Start 09/27/16 at 09:00 Collagenase (Santyl) 1 applic PRN PRN TOP SOILED OR DISLODGED DRESSING; Start 09/27/16 at 05:00 Lansoprazole (Prevacid) 30 mg DAILY@06 GTB Last administered on 10/12/16 05:00 ; Admin Dose 30 MG; Start 09/28/16 at 06:00 Mupirocin (Bactroban) 1 applic BID TOP Last administered on 10/12/16 09:46; Admin Dose 1 APPLIC; Start 09/28/16 at 21:00 Cromolyn Sodium (Nasalcrom) 1 spray QID NASAL Last administered on 10/12/16 16 :10; Admin Dose 1 SPRAY; Start 09/29/16 at 11:02 Linezolid (Zyvox) 600 mg BID PO Last administered on 10/12/16 09:31; Admin Dose 600 MG; Start 09/29/16 at 21:00 Amikacin Sulfate (Amikacin Iv Per Pharmacy) AMIKACIN PER PHARMACY NOTE XX ; Start 09/29/16 at 15:30 Phenol (Cepastat Lozenge) 1 lozenge Q2H PRN MT SORE THROAT Last administered on 10/02/16 12:48; Admin Dose 1 LOZENGE; Start 10/01/16 at 19:00 IV Flush 10 ml 10 ml PRN PRN IV IV PROTOCOL; Start 10/02/16 at 19:00 Amikacin Sulfate/ Dextrose (Amikacin/D5W) 102.8 ml @ 102.8 mls/ hr Q24H IVPB Last administered on 10/12/16 09:35; Admin Dose 102.8 MLS/HR; Start 10/04/16 at 09:00 Lactobacillus Acidophilus (Florajen3 Capsule) 1 each TID PO Last administered on 10/12/16 12:36; Admin Dose 1 EACH; Start 10/03/16 at 21:00 Hydromorphone HCl (Dilaudid) 0.5 mg Q4H PRN IV PAIN Last administered on 17:48; Admin Dose 0.5 MG; Start 10/06/16 at 18:30 Promethazine HCl/ Codeine (Phenergan/ Codeine) 10 ml BID PRN PO COUGH; Start at 20:30 Morphine Sulfate 60 mg 60 mg Q6 PO Last administered on 10/12/16 18:23; Admin Dose 60 MG; Start 10/09/16 at 12:00 Metronidazole/N/A (Flagyl 500 Mg (Pmx)/Evac Container) 50 ml @ 50 mls/hr Q8 IVPB Last administered on 4/27/17at 13:37; Admin Dose 50 MLS/HR; Start at 22:00 Sodium Chloride (Nacl) 1 gm BID PO ; Start 10/12/16 at 21:00 Miscellaneous Information (*Rx Drug Level Order Reminder*) AMIKACIN TROUGH AT 0, 800 ON... ONCE ONCE XX ; Start 10/13/16 at 08:00; Stop 10/13/16 at 08:01 ALMA ROSARIO NP Oct 12, 2016 19:42
[2016-10-12 20:09] VITALS: BP 94/61; RESP 17
[2016-10-12] MEDS: SODIUM CHLORIDE 1 GM TAB PO SCH (22:27)
[2016-10-12] MEDS: ATORVASTATIN 20 MG TAB PO SCH (22:27)
[2016-10-13] MEDS: HYDROmorphONE 1 MG/ML SYG IV PRN ×3 (03:29→21:12)
[2016-10-13] MEDS: morphine (ER) 30 MG TAB PO SCH ×3 (05:49→18:05)
[2016-10-13] MEDS: metroNIDAZOLE 500 MG/NS (PMX) 250 MG in EVAC CONTAINER 1 BOTTLE IVPB SCH ×3 (05:49→22:29)
[2016-10-13] MEDS: LANSOPRAZOLE 30 MG CAP GTB SCH (05:49)
[2016-10-13] MEDS: LEVOTHYROXINE 125 MCG TAB PO SCH (06:00)
[2016-10-13] MEDS ORDERED: ALTEPLASE (CATHFLO) 2 MG INJ CATHETER ONE (07:00)
[2016-10-13 07:35] VITALS: BP 97/63; RESP 18
[2016-10-13 08:30] LABS: ADD SCAN DIFF NO
[2016-10-13 08:43] LABS: BASOPHIL # 0.1 10^3/ul (0.0-0.1); BASOPHILS % 0.6 % (0.0-2.0); EOSINOPHILS # 0.7 10^3/ul (0.0-0.5); HEMATOCRIT 34.3 % (37.0-47.0); HEMOGLOBIN 10.2 g/dl (12.0-16.0); LYMPHOCYTES # 1.7 10^3/ul (0.8-2.9); LYMPHOCYTES % 12.9 % (15.0-51.0); MEAN CORPUSCULAR HEMOGLOBIN 25.1 pg (29.0-33.0); MEAN CORPUSCULAR HGB CONC 29.7 g/dl (32.0-37.0); MEAN CORPUSCULAR VOLUME 84.5 fl (82.0-101.0); MEAN PLATELET VOLUME 8.6 fl (7.4-10.4); MONOCYTE # 1.4 10^3/ul (0.3-0.9); MONOCYTES % 10.6 % (0.0-11.0); NEUTROPHIL # 9.4 10^3/ul (1.6-7.5); NEUTROPHILS % 70.2 % (39.0-77.0); PLATELET COUNT 395 10^3/UL (140-415); RED BLOOD COUNT 4.06 10^6/ul (4.20-5.40); RED CELL DISTRIBUTION WIDTH 17.4 % (11.5-14.5); WHITE BLOOD COUNT 13.4 10^3/ul (4.8-10.8)
[2016-10-13 08:57] LABS: POTASSIUM 3.5 mmol/L (3.5-5.1)
[2016-10-13 09:00] LABS: CALCIUM 8.3 mg/dl (8.4-10.2); CREATININE 0.41 mg/dl (0.44-1.00)
[2016-10-13] MEDS: COLLAGENASE 30 GM TUBE TOP SCH (09:00)
[2016-10-13] MEDS: L ACIDOPHIL/B LACTIS/B LONGUM CAPSULE PO SCH ×3 (09:28→21:11)
[2016-10-13] MEDS: DIAZEPAM 5 MG TAB PO SCH (09:28)
[2016-10-13] MEDS: SODIUM CHLORIDE 1 GM TAB PO SCH ×2 (09:28→21:11)
[2016-10-13] MEDS: ZYVOX 600 MG TAB PO SCH ×2 (09:28→21:11)
[2016-10-13] MEDS: GABAPENTIN 300 MG CAP PO SCH ×3 (09:28→21:11)
[2016-10-13] MEDS: ASCORBIC ACID 500 MG TAB PO SCH ×2 (09:28→21:11)
[2016-10-13] MEDS: DULOXETINE 20 MG CAP DR PO SCH (09:28)
[2016-10-13] MEDS: MUPIROCIN 2% 22 GM OINT TOP SCH ×2 (09:29→21:13)
[2016-10-13] MEDS: CROMOLYN 4% 26ML NAS INH NASAL SCH ×4 (09:29→22:37)
[2016-10-13] MEDS: AMIKACIN 700 MG in DEXTROSE 5% 100 ML IVPB SCH (10:11)
--- NOTE | 2016-10-13 11:33 | CONS ---
Date/Time of Note Date/Time of Note DATE: 10/13/16 TIME: 11:31 Assessment/Plan Assessment/Plan Additional Assessment/Plan 1. Hyponatremia, likely secondary to hypovolemic hyponatremia. 2. Status post acute kidney injury on chronic kidney disease due to systemic inflammatory response syndrome. 3. Systemic inflammatory response syndrome. 4. History of recurrent polymicrobial urinary tract infections. 5. History of dementia. 6. History of previous cerebrovascular accident. 7. History of chronic obstructive pulmonary disease, recently had acute respiratory failure secondary to chronic obstructive pulmonary disease exacerbation. 8. History of urinary retention with a chronic George catheter in place. 9. Chronic debility with cachexia. 10. Multiple decubitus ulcers with a history of debridement. 11. History of degenerative joint disease of spine. 12. History of hypertension and hypertensive heart disease with mild to moderate concentric left ventricular hypertrophy and echocardiogram with diastolic dysfunction stage I. PLAN: d/c IVF, started on sodium chloride tablet 1 gram PO BID Na 132, pt likey has Component of SAIDH causing hypoantreia, due to acute pain , she is near her baseline Na around 130 will follow up . Consultation Date/Type/Reason Admit Date/Time Sep 26, 2016 at 20:07 Type of Consultation: NEPHROLOGY Referring Provider: DRE LOBATO MD Exam/Review of Systems Vital Signs Vitals Vital Signs Date Time Temp Pulse Resp B/P Pulse Ox O2 Delivery O2 Flow Rate FiO2 10/13/16 08:20 Nasal Cannula 2.0 10/13/16 07:35 98.8 72 18 97/63 98 Intake and Output 10/12/16 10/12/16 10/13/16 15:00 23:00 07:00 Intake Total 452.8 ml 1120 ml 1020 ml Output Total 600 ml 900 ml Balance 452.8 ml 520 ml 120 ml Results Result Diagram: 10/13/16 0800 10/13/16 0800 Results 24 hrs Laboratory Tests Test 10/13/16 08:00 White Blood Count 13.4 H Red Blood Count 4.06 L Hemoglobin 10.2 L Hematocrit 34.3 L Mean Corpuscular Volume 84.5 Mean Corpuscular Hemoglobin 25.1 L Mean Corpuscular Hemoglobin Concent 29.7 L Red Cell Distribution Width 17.4 H Platelet Count 395 Mean Platelet Volume 8.6 Neutrophils % 70.2 Lymphocytes % 12.9 L Monocytes % 10.6 Eosinophils % 5.0 Basophils % 0.6 Nucleated Red Blood Cells % 0.0 Neutrophils # 9.4 H Lymphocytes # 1.7 Monocytes # 1.4 H Eosinophils # 0.7 H Basophils # 0.1 Nucleated Red Blood Cells # 0.0 Sodium Level 132 L Potassium Level 3.5 Chloride Level 89 L Carbon Dioxide Level 32 H Anion Gap 15 Blood Urea Nitrogen 14 Creatinine 0.41 L Glucose Level 131 Calcium Level 8.3 L Medications Medications Current Medications Ondansetron HCl (Zofran Inj) 4 mg Q6 PRN IV NAUSEA AND/OR VOMITING; Start 09/26 at 22:30 Acetaminophen (Tylenol Tab) 650 mg Q6H PRN PO PAIN AND OR ELEVATED TEMP Last administered on 10/12/16 16:09; Admin Dose 650 MG; Start 09/26/16 at 23:00 Alprazolam (Xanax) 0.5 mg Q12 PRN PO ANXIETY Last administered on 10/04/16 20: 29; Admin Dose 0.5 MG; Start 09/26/16 at 23:00 Ascorbic Acid (Vitamin C) 500 mg BID PO Last administered on 10/13/16 09:28; Admin Dose 500 MG; Start 09/27/16 at 09:00 Atorvastatin Calcium (Lipitor) 20 mg QHS PO Last administered on 10/12/16 22: 27; Admin Dose 20 MG; Start 09/27/16 at 21:00 Diazepam (Valium) 10 mg DAILY PO Last administered on 10/13/16 09:28; Admin Dose 10 MG; Start 09/27/16 at 09:00 Docusate Sodium (Colace) 100 mg Q12H PRN PO CONSTIPATION; Start 09/26/16 at 23: 00 Duloxetine HCl (Cymbalta) 20 mg DAILY PO Last administered on 10/13/16 09:28; Admin Dose 20 MG; Start 09/27/16 at 09:00 Gabapentin (Neurontin) 300 mg TID PO Last administered on 10/13/16 09:28; Admin Dose 300 MG; Start 09/27/16 at 09:00 Zolpidem Tartrate (Ambien) 5 mg QHS PRN PO INSOMNIA Last administered on 02:35; Admin Dose 5 MG; Start 09/26/16 at 23:00 Collagenase (Santyl) 1 applic DAILY TOP Last administered on 10/11/16 08:12; Admin Dose 1 APPLIC; Start 09/27/16 at 09:00 Collagenase (Santyl) 1 applic PRN PRN TOP SOILED OR DISLODGED DRESSING; Start 09/27/16 at 05:00 Lansoprazole (Prevacid) 30 mg DAILY@06 GTB Last administered on 10/13/16 05:49 ; Admin Dose 30 MG; Start 09/28/16 at 06:00 Mupirocin (Bactroban) 1 applic BID TOP Last administered on 10/13/16 09:29; Admin Dose 1 APPLIC; Start 09/28/16 at 21:00 Cromolyn Sodium (Nasalcrom) 1 spray QID NASAL Last administered on 10/13/16 09 :29; Admin Dose 1 SPRAY; Start 09/29/16 at 11:02 Linezolid (Zyvox) 600 mg BID PO Last administered on 10/13/16 09:28; Admin Dose 600 MG; Start 09/29/16 at 21:00 Amikacin Sulfate (Amikacin Iv Per Pharmacy) AMIKACIN PER PHARMACY NOTE XX ; Start 09/29/16 at 15:30 Phenol (Cepastat Lozenge) 1 lozenge Q2H PRN MT SORE THROAT Last administered on 10/02/16 12:48; Admin Dose 1 LOZENGE; Start 10/01/16 at 19:00 IV Flush 10 ml 10 ml PRN PRN IV IV PROTOCOL; Start 10/02/16 at 19:00 Amikacin Sulfate/ Dextrose (Amikacin/D5W) 102.8 ml @ 102.8 mls/ hr Q24H IVPB Last administered on 10/13/16 10:11; Admin Dose 102.8 MLS/HR; Start 10/04/16 at 09:00 Lactobacillus Acidophilus (Florajen3 Capsule) 1 each TID PO Last administered on 10/13/16 09:28; Admin Dose 1 EACH; Start 10/03/16 at 21:00 Hydromorphone HCl (Dilaudid) 0.5 mg Q4H PRN IV PAIN Last administered on 07:59; Admin Dose 0.5 MG; Start 10/06/16 at 18:30 Promethazine HCl/ Codeine (Phenergan/ Codeine) 10 ml BID PRN PO COUGH; Start at 20:30 Morphine Sulfate 60 mg 60 mg Q6 PO Last administered on 10/13/16 05:49; Admin Dose 60 MG; Start 10/09/16 at 12:00 Metronidazole/N/A (Flagyl 500 Mg (Pmx)/Evac Container) 50 ml @ 50 mls/hr Q8 IVPB Last administered on 10/13/16 05:49; Admin Dose 50 MLS/HR; Start at 22:00 Sodium Chloride (Nacl) 1 gm BID PO Last administered on 10/13/16 09:28; Admin Dose 1 GM; Start 10/12/16 at 21:00 DIONNE SAUCEDA MD Oct 13, 2016 11:33
--- NOTE | 2016-10-13 13:44 | CONS ---
Date/Time of Note Date/Time of Note DATE: 10/13/16 TIME: 13:43 Assessment/Plan Assessment/Plan Additional Assessment/Plan SIRS Intermittent hypotension Diastolic congestive heart failure, compensated Pulmonary hypertension Preserved ejection fraction Tricuspid valve regurgitation Lung cancer -Chest x-ray with no significant change, cough is better. Blood pressure trend remains stable, would continue to hold any antihypertensives at the current time. Consultation Date/Type/Reason Admit Date/Time Sep 26, 2016 at 20:07 Type of Consultation: cv Referring Provider: DRE LOBATO MD 24 HR Interval Summary Free Text/Dictation Denies shortness of breath, cough is better, denies chest pain Exam/Review of Systems Vital Signs Vitals Vital Signs Date Time Temp Pulse Resp B/P Pulse Ox O2 Delivery O2 Flow Rate FiO2 10/13/16 08:20 Nasal Cannula 2.0 10/13/16 07:35 98.8 72 18 97/63 98 Intake and Output 10/12/16 10/12/16 10/13/16 15:00 23:00 07:00 Intake Total 452.8 ml 1120 ml 1020 ml Output Total 600 ml 900 ml Balance 452.8 ml 520 ml 120 ml Exam No apparent distress Constitutional: alert, frail, oriented Head: normocephalic Respiratory: other (Coarse breath sounds bilaterally, no wheezing) Cardiovascular: other (S1-S2 heard), regular rate and rhythm Gastrointestinal: bowel sounds, non-tender, soft Extremities: other (No edema) Results Result Diagram: 10/13/16 0800 10/13/16 0800 Results 24 hrs Laboratory Tests Test 10/13/16 08:00 White Blood Count 13.4 H Red Blood Count 4.06 L Hemoglobin 10.2 L Hematocrit 34.3 L Mean Corpuscular Volume 84.5 Mean Corpuscular Hemoglobin 25.1 L Mean Corpuscular Hemoglobin Concent 29.7 L Red Cell Distribution Width 17.4 H Platelet Count 395 Mean Platelet Volume 8.6 Neutrophils % 70.2 Lymphocytes % 12.9 L Monocytes % 10.6 Eosinophils % 5.0 Basophils % 0.6 Nucleated Red Blood Cells % 0.0 Neutrophils # 9.4 H Lymphocytes # 1.7 Monocytes # 1.4 H Eosinophils # 0.7 H Basophils # 0.1 Nucleated Red Blood Cells # 0.0 Sodium Level 132 L Potassium Level 3.5 Chloride Level 89 L Carbon Dioxide Level 32 H Anion Gap 15 Blood Urea Nitrogen 14 Creatinine 0.41 L Glucose Level 131 Calcium Level 8.3 L Medications Medications Current Medications Ondansetron HCl (Zofran Inj) 4 mg Q6 PRN IV NAUSEA AND/OR VOMITING; Start 09/26 at 22:30 Acetaminophen (Tylenol Tab) 650 mg Q6H PRN PO PAIN AND OR ELEVATED TEMP Last administered on 10/12/16 16:09; Admin Dose 650 MG; Start 09/26/16 at 23:00 Alprazolam (Xanax) 0.5 mg Q12 PRN PO ANXIETY Last administered on 10/04/16 20: 29; Admin Dose 0.5 MG; Start 09/26/16 at 23:00 Ascorbic Acid (Vitamin C) 500 mg BID PO Last administered on 10/13/16 09:28; Admin Dose 500 MG; Start 09/27/16 at 09:00 Atorvastatin Calcium (Lipitor) 20 mg QHS PO Last administered on 10/12/16 22: 27; Admin Dose 20 MG; Start 09/27/16 at 21:00 Diazepam (Valium) 10 mg DAILY PO Last administered on 10/13/16 09:28; Admin Dose 10 MG; Start 09/27/16 at 09:00 Docusate Sodium (Colace) 100 mg Q12H PRN PO CONSTIPATION; Start 09/26/16 at 23: 00 Duloxetine HCl (Cymbalta) 20 mg DAILY PO Last administered on 10/13/16 09:28; Admin Dose 20 MG; Start 09/27/16 at 09:00 Gabapentin (Neurontin) 300 mg TID PO Last administered on 10/13/16 13:14; Admin Dose 300 MG; Start 09/27/16 at 09:00 Zolpidem Tartrate (Ambien) 5 mg QHS PRN PO INSOMNIA Last administered on 02:35; Admin Dose 5 MG; Start 09/26/16 at 23:00 Collagenase (Santyl) 1 applic DAILY TOP Last administered on 10/11/16 08:12; Admin Dose 1 APPLIC; Start 09/27/16 at 09:00 Collagenase (Santyl) 1 applic PRN PRN TOP SOILED OR DISLODGED DRESSING; Start 09/27/16 at 05:00 Lansoprazole (Prevacid) 30 mg DAILY@06 GTB Last administered on 10/13/16 05:49 ; Admin Dose 30 MG; Start 09/28/16 at 06:00 Mupirocin (Bactroban) 1 applic BID TOP Last administered on 10/13/16 09:29; Admin Dose 1 APPLIC; Start 09/28/16 at 21:00 Cromolyn Sodium (Nasalcrom) 1 spray QID NASAL Last administered on 10/13/16 13 :15; Admin Dose 1 SPRAY; Start 09/29/16 at 11:02 Linezolid (Zyvox) 600 mg BID PO Last administered on 10/13/16 09:28; Admin Dose 600 MG; Start 09/29/16 at 21:00 Amikacin Sulfate (Amikacin Iv Per Pharmacy) AMIKACIN PER PHARMACY NOTE XX ; Start 09/29/16 at 15:30 Phenol (Cepastat Lozenge) 1 lozenge Q2H PRN MT SORE THROAT Last administered on 10/02/16 12:48; Admin Dose 1 LOZENGE; Start 10/01/16 at 19:00 IV Flush 10 ml 10 ml PRN PRN IV IV PROTOCOL; Start 10/02/16 at 19:00 Amikacin Sulfate/ Dextrose (Amikacin/D5W) 102.8 ml @ 102.8 mls/ hr Q24H IVPB Last administered on 10/13/16 10:11; Admin Dose 102.8 MLS/HR; Start 10/04/16 at 09:00 Lactobacillus Acidophilus (Florajen3 Capsule) 1 each TID PO Last administered on 10/13/16 13:14; Admin Dose 1 EACH; Start 10/03/16 at 21:00 Hydromorphone HCl (Dilaudid) 0.5 mg Q4H PRN IV PAIN Last administered on 07:59; Admin Dose 0.5 MG; Start 10/06/16 at 18:30 Promethazine HCl/ Codeine (Phenergan/ Codeine) 10 ml BID PRN PO COUGH; Start at 20:30 Morphine Sulfate 60 mg 60 mg Q6 PO Last administered on 10/13/16 12:10; Admin Dose 60 MG; Start 10/09/16 at 12:00 Metronidazole/N/A (Flagyl 500 Mg (Pmx)/Evac Container) 50 ml @ 50 mls/hr Q8 IVPB Last administered on 10/13/16 05:49; Admin Dose 50 MLS/HR; Start at 22:00 Sodium Chloride (Nacl) 1 gm BID PO Last administered on 10/13/16 09:28; Admin Dose 1 GM; Start 10/12/16 at 21:00 Artemio Tipton DO Oct 13, 2016 13:44
--- NOTE | 2016-10-13 18:27 | PN ---
Date/Time of Note Date/Time of Note DATE: 10/13/16 TIME: 18:25 Assessment/Plan VTE Prophylaxis VTE Prophylaxis Intervention: SCD's Lines/Catheters IV [facility]ter Type (from [facility]): PICC Line Central line still needed: Yes Urinary Cath still in place: Yes Reason Cath still needed: urinary retention Assessment/Plan Chief Complaint/Hosp Course ASSESSMENT AND PLAN: - Recurrent sepsis, resolving. Dr. Coleman is following in infection disease consultation. Continue antibiotics per ID. - Polymicrobial urinary tract infection, this post treatment. - Left lung squamous cell carcinoma. Patient is not a candidate for chemotherapy. - Chronic obstructive pulmonary disease. Continue breathing treatment. - Multiple decubitus ulcers with history of debridement. Continue current wound care. Wound culture is growing polymicrobial organisms. Continue antibiotics per ID. - Methicillin-resistant Staphylococcus aureus nares colonization. - Cachexia. Optimize nutrition. - Dysphagia with G-tube placement. Continue G-tube feeding. Aspiration precaution. - Chronic urinary retention. Continue George catheter. - Hypothyroidism. TSH is within normal limits. Continue Synthroid. - Anemia of chronic disease. Undergoing blood transfusion. - Hyponatremia, Dr. Zapata is following in nephrology consultation. - Right hand swelling, pending CT scan of the right hand. Further recommendations based on clinical course. Plan of care discussed with Dr. Dozier. Problems: Subjective 24 Hr Interval Summary Free Text/Dictation Patient remains afebrile, no nausea vomiting per RN. Exam/Review of Systems Vital Signs Vitals Vital Signs Date Time Temp Pulse Resp B/P Pulse Ox O2 Delivery O2 Flow Rate FiO2 10/13/16 18:01 2.0 10/13/16 08:20 Nasal Cannula 10/13/16 07:35 98.8 72 18 97/63 98 Intake and Output 10/12/16 10/12/16 10/13/16 15:00 23:00 07:00 Intake Total 452.8 ml 1120 ml 1020 ml Output Total 600 ml 900 ml Balance 452.8 ml 520 ml 120 ml Exam Constitutional: alert, oriented Psych: no complaints Head: atraumatic, normocephalic Eyes: nl conjunctiva ENMT: nl external ears & nose Neck: non-tender, supple Respiratory: clear to auscultation, normal air movement Cardiovascular: nl pulses, regular rate and rhythm Gastrointestinal: non-tender, other (G-tube), soft Musculoskeletal: nl extremities to inspection Extremities: normal pulses 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 Results Result Diagram: 10/13/16 0800 10/13/16 0800 Results 24 hrs Laboratory Tests Test 10/13/16 08:00 White Blood Count 13.4 H Red Blood Count 4.06 L Hemoglobin 10.2 L Hematocrit 34.3 L Mean Corpuscular Volume 84.5 Mean Corpuscular Hemoglobin 25.1 L Mean Corpuscular Hemoglobin Concent 29.7 L Red Cell Distribution Width 17.4 H Platelet Count 395 Mean Platelet Volume 8.6 Neutrophils % 70.2 Lymphocytes % 12.9 L Monocytes % 10.6 Eosinophils % 5.0 Basophils % 0.6 Nucleated Red Blood Cells % 0.0 Neutrophils # 9.4 H Lymphocytes # 1.7 Monocytes # 1.4 H Eosinophils # 0.7 H Basophils # 0.1 Nucleated Red Blood Cells # 0.0 Sodium Level 132 L Potassium Level 3.5 Chloride Level 89 L Carbon Dioxide Level 32 H Anion Gap 15 Blood Urea Nitrogen 14 Creatinine 0.41 L Glucose Level 131 Calcium Level 8.3 L Medications Medications Current Medications Ondansetron HCl (Zofran Inj) 4 mg Q6 PRN IV NAUSEA AND/OR VOMITING; Start 09/26 at 22:30 Acetaminophen (Tylenol Tab) 650 mg Q6H PRN PO PAIN AND OR ELEVATED TEMP Last administered on 10/12/16 16:09; Admin Dose 650 MG; Start 09/26/16 at 23:00 Alprazolam (Xanax) 0.5 mg Q12 PRN PO ANXIETY Last administered on 10/04/16 20: 29; Admin Dose 0.5 MG; Start 09/26/16 at 23:00 Ascorbic Acid (Vitamin C) 500 mg BID PO Last administered on 10/13/16 09:28; Admin Dose 500 MG; Start 09/27/16 at 09:00 Atorvastatin Calcium (Lipitor) 20 mg QHS PO Last administered on 10/12/16 22: 27; Admin Dose 20 MG; Start 09/27/16 at 21:00 Diazepam (Valium) 10 mg DAILY PO Last administered on 10/13/16 09:28; Admin Dose 10 MG; Start 09/27/16 at 09:00 Docusate Sodium (Colace) 100 mg Q12H PRN PO CONSTIPATION; Start 09/26/16 at 23: 00 Duloxetine HCl (Cymbalta) 20 mg DAILY PO Last administered on 10/13/16 09:28; Admin Dose 20 MG; Start 09/27/16 at 09:00 Gabapentin (Neurontin) 300 mg TID PO Last administered on 10/13/16 13:14; Admin Dose 300 MG; Start 09/27/16 at 09:00 Zolpidem Tartrate (Ambien) 5 mg QHS PRN PO INSOMNIA Last administered on 02:35; Admin Dose 5 MG; Start 09/26/16 at 23:00 Collagenase (Santyl) 1 applic DAILY TOP Last administered on 10/11/16 08:12; Admin Dose 1 APPLIC; Start 09/27/16 at 09:00 Collagenase (Santyl) 1 applic PRN PRN TOP SOILED OR DISLODGED DRESSING; Start 09/27/16 at 05:00 Lansoprazole (Prevacid) 30 mg DAILY@06 GTB Last administered on 10/13/16 05:49 ; Admin Dose 30 MG; Start 09/28/16 at 06:00 Mupirocin (Bactroban) 1 applic BID TOP Last administered on 10/13/16 09:29; Admin Dose 1 APPLIC; Start 09/28/16 at 21:00 Cromolyn Sodium (Nasalcrom) 1 spray QID NASAL Last administered on 10/13/16 18 :05; Admin Dose 1 SPRAY; Start 09/29/16 at 11:02 Linezolid (Zyvox) 600 mg BID PO Last administered on 10/13/16 09:28; Admin Dose 600 MG; Start 09/29/16 at 21:00 Amikacin Sulfate (Amikacin Iv Per Pharmacy) AMIKACIN PER PHARMACY NOTE XX ; Start 09/29/16 at 15:30 Phenol (Cepastat Lozenge) 1 lozenge Q2H PRN MT SORE THROAT Last administered on 10/02/16 12:48; Admin Dose 1 LOZENGE; Start 10/01/16 at 19:00 IV Flush (NS 10 ml) 10 ml PRN PRN IV IV PROTOCOL; Start 10/02/16 at 19:00 Lactobacillus Acidophilus (Florajen3 Capsule) 1 each TID PO Last administered on 10/13/16 13:14; Admin Dose 1 EACH; Start 10/03/16 at 21:00 Hydromorphone HCl (Dilaudid) 0.5 mg Q4H PRN IV PAIN Last administered on 07:59; Admin Dose 0.5 MG; Start 10/06/16 at 18:30 Promethazine HCl/ Codeine (Phenergan/ Codeine) 10 ml BID PRN PO COUGH; Start at 20:30 Morphine Sulfate 60 mg 60 mg Q6 PO Last administered on 10/13/16 18:05; Admin Dose 60 MG; Start 10/09/16 at 12:00 Metronidazole/N/A (Flagyl 500 Mg (Pmx)/Evac Container) 50 ml @ 50 mls/hr Q8 IVPB Last administered on 10/13/16 14:38; Admin Dose 50 MLS/HR; Start at 22:00 Sodium Chloride 1 gm 1 gm BID PO Last administered on 10/13/16 09:28; Admin Dose 1 GM; Start 10/12/16 at 21:00 Amikacin Sulfate/ Dextrose (Amikacin/D5W) 102.8 ml @ 102.8 mls/ hr Q36H IVPB ; Start 10/14/16 at 21:00 REBECCA ISLAS Oct 13, 2016 18:27
[2016-10-13 20:00] VITALS: BP 97/63; RESP 18
--- NOTE | 2016-10-13 20:16 | CONS ---
Date/Time of Note Date/Time of Note DATE: 10/13/16 TIME: 20:13 Assessment/Plan Assessment/Plan Chief Complaint/Hosp Course ID PROGRESS NOTE ABX: Amikacin + Zyvox + Flagyl 24H INTERVAL SUMMARY * Clinically no changes -- supplemental O2, right hand/wrist pain -- CT showed triscaphe arthritis -- Probable pseudogout best treated w/NSAIDS * SPEECH Tx note appreciated: FOR ORAL GRATIFICATION puree/thin liquid by spoon or small sip by cup. NO STRAW. Continue TF for nutrition PHYSICAL EXAMINATION: GENERAL: This is a chronically ill-appearing, frail 66 yo F HEENT: Unremarkable -- NECK: Supple, trachea midline. CHEST: Rise symmetrical without dyspnea ABDOMEN: Refuses exam EXTREMITIES: Moves all extremities, Without cyanosis. ID ASSESSMENT: 66 yo F w/PMHx Dementia, CVA(chronic left thalamic lacunar infarction), Tobacco/ COPD-Emphysema/Lung Cancer re-admit with: 1. SIRS => RESOLVING * Afebrile * Chronic mild tachycardia - albuterol * Chronic elevated WBC 2. Recurrent polymicrobial UTI * urine culture growing Proteus mirabilis and Klebsiella pneumoniae, both susceptible to amikacin and Zosyn. 3. Urinary retention with chronic George=>Probable neurogenic bladder 5. Status post acute respiratory failure secondary to chronic obstructive pulmonary disease exacerbation. * O2 dependent via NC, chronic recurrent cough, CXR w/persistent lung mass 6. Chronic debility w/Cachexia. 7. Multiple decubitus with a history of debridement. * Wound culture WOUND CULTURE Final Organism 1 CITROBACTER AMALONATICUS Organism 2 K PNEUMO ESBL Organism 3 ESCHERICHIA COLI (ESBL) Organism 4 VANCO RESISTANT ENTEROCOCCUS Organism 5 METHICILLIN RESISTANT S.AUREUS Organism 6 PROTEUS MIRABILIS 8. H/O DJD spine -> Hx of lumbar spinal fusion 9 .H/O Hypertension w/HTN heart disease mild-mod cLVH on ECHO w/diastolic dysfunction STG I 10. Right hand/wrist pain => CT showed triscaphe arthritis -- Probable pseudogout best treated w/NSAIDS (+) MRSA Nares screen ->Bactroban INVASIVES: PICC, FC, Peg ALLERGY: PENICILLIN. CURRENT ABX: ABX: Amikacin + Zyvox + Flagyl ID PLAN: * Continue wound vac Tx for decubs, continue nutrition, pain meds * Continue ABX + added Flagyl IV due to persistent malodorous wounds -- empiric anaerobic coverage * ASP Precautions * CT showed triscaphe arthritis -- Probable pseudogout best treated w/NSAIDS . Problems: Consultation Date/Type/Reason Admit Date/Time Sep 26, 2016 at 20:07 Type of Consultation: cv Referring Provider: DRE LOBATO MD Exam/Review of Systems Vital Signs Vitals Vital Signs Date Time Temp Pulse Resp B/P Pulse Ox O2 Delivery O2 Flow Rate FiO2 10/13/16 18:01 2.0 10/13/16 08:20 Nasal Cannula 10/13/16 07:35 98.8 72 18 97/63 98 Intake and Output 10/12/16 10/12/16 10/13/16 15:00 23:00 07:00 Intake Total 452.8 ml 1120 ml 1020 ml Output Total 600 ml 900 ml Balance 452.8 ml 520 ml 120 ml Results Result Diagram: 10/13/16 0800 10/13/16 0800 Results 24 hrs Laboratory Tests Test 10/13/16 08:00 White Blood Count 13.4 H Red Blood Count 4.06 L Hemoglobin 10.2 L Hematocrit 34.3 L Mean Corpuscular Volume 84.5 Mean Corpuscular Hemoglobin 25.1 L Mean Corpuscular Hemoglobin Concent 29.7 L Red Cell Distribution Width 17.4 H Platelet Count 395 Mean Platelet Volume 8.6 Neutrophils % 70.2 Lymphocytes % 12.9 L Monocytes % 10.6 Eosinophils % 5.0 Basophils % 0.6 Nucleated Red Blood Cells % 0.0 Neutrophils # 9.4 H Lymphocytes # 1.7 Monocytes # 1.4 H Eosinophils # 0.7 H Basophils # 0.1 Nucleated Red Blood Cells # 0.0 Sodium Level 132 L Potassium Level 3.5 Chloride Level 89 L Carbon Dioxide Level 32 H Anion Gap 15 Blood Urea Nitrogen 14 Creatinine 0.41 L Glucose Level 131 Calcium Level 8.3 L Medications Medications Current Medications Ondansetron HCl (Zofran Inj) 4 mg Q6 PRN IV NAUSEA AND/OR VOMITING; Start 09/26 at 22:30 Acetaminophen (Tylenol Tab) 650 mg Q6H PRN PO PAIN AND OR ELEVATED TEMP Last administered on 10/12/16t 16:09; Admin Dose 650 MG; Start 09/26/16 at 23:00 Alprazolam (Xanax) 0.5 mg Q12 PRN PO ANXIETY Last administered on 10/04/16 20: 29; Admin Dose 0.5 MG; Start 09/26/16 at 23:00 Ascorbic Acid (Vitamin C) 500 mg BID PO Last administered on 10/13/16 09:28; Admin Dose 500 MG; Start 09/27/16 at 09:00 Atorvastatin Calcium (Lipitor) 20 mg QHS PO Last administered on 10/12/16 22: 27; Admin Dose 20 MG; Start 09/27/16 at 21:00 Diazepam (Valium) 10 mg DAILY PO Last administered on 10/13/16 09:28; Admin Dose 10 MG; Start 09/27/16 at 09:00 Docusate Sodium (Colace) 100 mg Q12H PRN PO CONSTIPATION; Start 09/26/16 at 23: 00 Duloxetine HCl (Cymbalta) 20 mg DAILY PO Last administered on 10/13/16 09:28; Admin Dose 20 MG; Start 09/27/16 at 09:00 Gabapentin (Neurontin) 300 mg TID PO Last administered on 10/13/16 13:14; Admin Dose 300 MG; Start 09/27/16 at 09:00 Zolpidem Tartrate (Ambien) 5 mg QHS PRN PO INSOMNIA Last administered on 02:35; Admin Dose 5 MG; Start 09/26/16 at 23:00 Collagenase (Santyl) 1 applic DAILY TOP Last administered on 10/11/16 08:12; Admin Dose 1 APPLIC; Start 09/27/16 at 09:00 Collagenase (Santyl) 1 applic PRN PRN TOP SOILED OR DISLODGED DRESSING; Start 09/27/16 at 05:00 Lansoprazole (Prevacid) 30 mg DAILY@06 GTB Last administered on 10/13/16 05:49 ; Admin Dose 30 MG; Start 09/28/16 at 06:00 Mupirocin (Bactroban) 1 applic BID TOP Last administered on 10/13/16 09:29; Admin Dose 1 APPLIC; Start 09/28/16 at 21:00 Cromolyn Sodium (Nasalcrom) 1 spray QID NASAL Last administered on 10/13/16 18 :05; Admin Dose 1 SPRAY; Start 09/29/16 at 11:02 Linezolid (Zyvox) 600 mg BID PO Last administered on 10/13/16 09:28; Admin Dose 600 MG; Start 09/29/16 at 21:00 Amikacin Sulfate (Amikacin Iv Per Pharmacy) AMIKACIN PER PHARMACY NOTE XX ; Start 09/29/16 at 15:30 Phenol (Cepastat Lozenge) 1 lozenge Q2H PRN MT SORE THROAT Last administered on 10/02/16 12:48; Admin Dose 1 LOZENGE; Start 10/01/16 at 19:00 IV Flush (NS 10 ml) 10 ml PRN PRN IV IV PROTOCOL; Start 10/02/16 at 19:00 Lactobacillus Acidophilus (Florajen3 Capsule) 1 each TID PO Last administered on 10/13/16 13:14; Admin Dose 1 EACH; Start 10/03/16 at 21:00 Hydromorphone HCl (Dilaudid) 0.5 mg Q4H PRN IV PAIN Last administered on 07:59; Admin Dose 0.5 MG; Start 10/06/16 at 18:30 Promethazine HCl/ Codeine (Phenergan/ Codeine) 10 ml BID PRN PO COUGH; Start at 20:30 Morphine Sulfate 60 mg 60 mg Q6 PO Last administered on 10/13/16 18:05; Admin Dose 60 MG; Start 10/09/16 at 12:00 Metronidazole/N/A (Flagyl 500 Mg (Pmx)/Evac Container) 50 ml @ 50 mls/hr Q8 IVPB Last administered on 10/13/16 14:38; Admin Dose 50 MLS/HR; Start at 22:00 Sodium Chloride 1 gm 1 gm BID PO Last administered on 10/13/16 09:28; Admin Dose 1 GM; Start 10/12/16 at 21:00 Amikacin Sulfate/ Dextrose (Amikacin/D5W) 102.8 ml @ 102.8 mls/ hr Q36H IVPB ; Start 10/14/16 at 21:00 ALMA ROSARIO NP Oct 13, 2016 20:16
[2016-10-13] MEDS: ATORVASTATIN 20 MG TAB PO SCH (21:11)
[2016-10-14] MEDS: morphine (ER) 30 MG TAB PO SCH ×4 (00:27→18:11)
[2016-10-14] MEDS: HYDROmorphONE 1 MG/ML SYG IV PRN ×3 (03:22→16:05)
[2016-10-14 05:57] LABS: ADD SCAN DIFF NO
[2016-10-14] MEDS: LANSOPRAZOLE 30 MG CAP GTB SCH (06:08)
[2016-10-14] MEDS: metroNIDAZOLE 500 MG/NS (PMX) 250 MG in EVAC CONTAINER 1 BOTTLE IVPB SCH ×3 (06:08→22:51)
[2016-10-14] MEDS: LEVOTHYROXINE 125 MCG TAB PO SCH (06:11)
[2016-10-14 06:18] LABS: ABNORMAL IP MESSAGE 1; BASOPHIL # 0.1 10^3/ul (0.0-0.1); BASOPHILS % 0.7 % (0.0-2.0); EOSINOPHILS # 0.7 10^3/ul (0.0-0.5); EOSINOPHILS % 4.6 % (0.0-7.0); HEMATOCRIT 30.3 % (37.0-47.0); HEMOGLOBIN 9.2 g/dl (12.0-16.0); LYMPHOCYTES # 1.8 10^3/ul (0.8-2.9); LYMPHOCYTES % 12.9 % (15.0-51.0); MEAN CORPUSCULAR HEMOGLOBIN 25.8 pg (29.0-33.0); MEAN CORPUSCULAR HGB CONC 30.4 g/dl (32.0-37.0); MEAN CORPUSCULAR VOLUME 84.9 fl (82.0-101.0); MEAN PLATELET VOLUME 8.5 fl (7.4-10.4); MONOCYTE # 1.7 10^3/ul (0.3-0.9); MONOCYTES % 12.3 % (0.0-11.0); NEUTROPHIL # 9.8 10^3/ul (1.6-7.5); NEUTROPHILS % 68.9 % (39.0-77.0); PLATELET COUNT 410 10^3/UL (140-415); RED BLOOD COUNT 3.57 10^6/ul (4.20-5.40); RED CELL DISTRIBUTION WIDTH 17.3 % (11.5-14.5); WHITE BLOOD COUNT 14.2 10^3/ul (4.8-10.8)
[2016-10-14 06:29] LABS: POTASSIUM 3.4 mmol/L (3.5-5.1)
[2016-10-14 06:32] LABS: CREATININE 0.4 mg/dl (0.44-1.00)
[2016-10-14 06:33] LABS: CALCIUM 8.2 mg/dl (8.4-10.2)
[2016-10-14 07:55] VITALS: BP 100/68; RESP 16
[2016-10-14] MEDS: COLLAGENASE 30 GM TUBE TOP SCH (09:00)
[2016-10-14] MEDS: L ACIDOPHIL/B LACTIS/B LONGUM CAPSULE PO SCH ×3 (09:00→21:24)
[2016-10-14] MEDS: DIAZEPAM 5 MG TAB PO SCH (09:07)
[2016-10-14] MEDS: ASCORBIC ACID 500 MG TAB PO SCH ×2 (09:07→21:24)
[2016-10-14] MEDS: GABAPENTIN 300 MG CAP PO SCH ×3 (09:07→21:24)
[2016-10-14] MEDS: DULOXETINE 20 MG CAP DR PO SCH (09:08)
[2016-10-14] MEDS: ZYVOX 600 MG TAB PO SCH ×2 (09:08→21:24)
[2016-10-14] MEDS: SODIUM CHLORIDE 1 GM TAB PO SCH (09:08)
[2016-10-14] MEDS: CROMOLYN 4% 26ML NAS INH NASAL SCH ×4 (09:14→21:23)
[2016-10-14] MEDS: MUPIROCIN 2% 22 GM OINT TOP SCH ×2 (09:15→21:25)
--- NOTE | 2016-10-14 10:43 | CONS ---
Date/Time of Note Date/Time of Note DATE: 10/14/16 TIME: 10:40 Assessment/Plan Assessment/Plan Additional Assessment/Plan 1. Hyponatremia, likely secondary to hypovolemic hyponatremia. 2. Status post acute kidney injury on chronic kidney disease due to systemic inflammatory response syndrome. 3. Systemic inflammatory response syndrome. 4. History of recurrent polymicrobial urinary tract infections. 5. History of dementia. 6. History of previous cerebrovascular accident. 7. History of chronic obstructive pulmonary disease, recently had acute respiratory failure secondary to chronic obstructive pulmonary disease exacerbation. 8. History of urinary retention with a chronic George catheter in place. 9. Chronic debility with cachexia. 10. Multiple decubitus ulcers with a history of debridement. 11. History of degenerative joint disease of spine. 12. History of hypertension and hypertensive heart disease with mild to moderate concentric left ventricular hypertrophy and echocardiogram with diastolic dysfunction stage I. PLAN: pt was started on Na chloride tablet- Na again dropped today to 130,K low will give KCl 20meQ iv x 1 dose now , give IVF 0.9 Ns at 70 cc/hr x 1 lite then stop Na dropped to 130 again today , pt likey has Component of SAIDH causing hypoantreia, due to acute on chronic pain will follow up . Consultation Date/Type/Reason Admit Date/Time Sep 26, 2016 at 20:07 Initial Consult Date September Type of Consultation: NEPHROLOGY Reason for Consultation Hyponatremia, Hypokalemia Referring Provider: DRE LOBATO MD 24 HR Interval Summary Free Text/Dictation Na dropped to 130, K low, pt stable, BP is also borderline low Exam/Review of Systems Vital Signs Vitals Vital Signs Date Time Temp Pulse Resp B/P Pulse Ox O2 Delivery O2 Flow Rate FiO2 10/14/16 07:55 98.7 94 16 100/68 98 10/14/16 01:35 2.0 10/13/16 20:10 Nasal Cannula Intake and Output 10/13/16 10/13/16 10/14/16 15:00 23:00 07:00 Intake Total 102.8 ml 200 ml 50 ml Output Total 650 ml Balance 102.8 ml -450 ml 50 ml Exam GENERAL: This is a chronically ill-appearing, frail 66 yo F HEENT: Unremarkable -- NECK: Supple, trachea midline. CHEST: Rise symmetrical without dyspnea ABDOMEN: Refuses exam EXTREMITIES: Moves all extremities, Without cyanosis. Results Result Diagram: 10/14/16 0455 10/14/16 0455 Results 24 hrs Laboratory Tests Test 10/14/16 04:55 White Blood Count 14.2 H Red Blood Count 3.57 L Hemoglobin 9.2 L Hematocrit 30.3 L Mean Corpuscular Volume 84.9 Mean Corpuscular Hemoglobin 25.8 L Mean Corpuscular Hemoglobin Concent 30.4 L Red Cell Distribution Width 17.3 H Platelet Count 410 Mean Platelet Volume 8.5 Neutrophils % 68.9 Lymphocytes % 12.9 L Monocytes % 12.3 H Eosinophils % 4.6 Basophils % 0.7 Nucleated Red Blood Cells % 0.0 Neutrophils # 9.8 H Lymphocytes # 1.8 Monocytes # 1.7 H Eosinophils # 0.7 H Basophils # 0.1 Nucleated Red Blood Cells # 0.0 Sodium Level 130 L Potassium Level 3.4 L Chloride Level 88 L Carbon Dioxide Level 34 H Anion Gap 11 Blood Urea Nitrogen 13 Creatinine 0.40 L Glucose Level 119 Calcium Level 8.2 L Medications Medications Current Medications Ondansetron HCl (Zofran Inj) 4 mg Q6 PRN IV NAUSEA AND/OR VOMITING; Start 09/26 at 22:30 Acetaminophen (Tylenol Tab) 650 mg Q6H PRN PO PAIN AND OR ELEVATED TEMP Last administered on 10/12/16 16:09; Admin Dose 650 MG; Start 09/26/16 at 23:00 Alprazolam (Xanax) 0.5 mg Q12 PRN PO ANXIETY Last administered on 10/04/16 20: 29; Admin Dose 0.5 MG; Start 09/26/16 at 23:00 Ascorbic Acid (Vitamin C) 500 mg BID PO Last administered on 10/14/16 09:07; Admin Dose 500 MG; Start 09/27/16 at 09:00 Atorvastatin Calcium (Lipitor) 20 mg QHS PO Last administered on 10/13/16 21: 11; Admin Dose 20 MG; Start 09/27/16 at 21:00 Diazepam (Valium) 10 mg DAILY PO Last administered on 10/14/16 09:07; Admin Dose 10 MG; Start 09/27/16 at 09:00 Docusate Sodium (Colace) 100 mg Q12H PRN PO CONSTIPATION; Start 09/26/16 at 23: 00 Duloxetine HCl (Cymbalta) 20 mg DAILY PO Last administered on 10/14/16 09:08; Admin Dose 20 MG; Start 09/27/16 at 09:00 Gabapentin (Neurontin) 300 mg TID PO Last administered on 10/14/16 09:07; Admin Dose 300 MG; Start 09/27/16 at 09:00 Zolpidem Tartrate (Ambien) 5 mg QHS PRN PO INSOMNIA Last administered on 02:35; Admin Dose 5 MG; Start 09/26/16 at 23:00 Collagenase (Santyl) 1 applic DAILY TOP Last administered on 10/11/16 08:12; Admin Dose 1 APPLIC; Start 09/27/16 at 09:00 Collagenase (Santyl) 1 applic PRN PRN TOP SOILED OR DISLODGED DRESSING; Start 09/27/16 at 05:00 Lansoprazole (Prevacid) 30 mg DAILY@06 GTB Last administered on 10/14/16 06:08 ; Admin Dose 30 MG; Start 09/28/16 at 06:00 Mupirocin (Bactroban) 1 applic BID TOP Last administered on 10/14/16 09:15; Admin Dose 1 APPLIC; Start 09/28/16 at 21:00 Cromolyn Sodium (Nasalcrom) 1 spray QID NASAL Last administered on 10/14/16 09 :14; Admin Dose 1 SPRAY; Start 09/29/16 at 11:02 Linezolid (Zyvox) 600 mg BID PO Last administered on 10/14/16 09:08; Admin Dose 600 MG; Start 09/29/16 at 21:00 Amikacin Sulfate (Amikacin Iv Per Pharmacy) AMIKACIN PER PHARMACY NOTE XX ; Start 09/29/16 at 15:30 Phenol (Cepastat Lozenge) 1 lozenge Q2H PRN MT SORE THROAT Last administered on 10/02/16 12:48; Admin Dose 1 LOZENGE; Start 10/01/16 at 19:00 IV Flush (NS 10 ml) 10 ml PRN PRN IV IV PROTOCOL; Start 10/02/16 at 19:00 Lactobacillus Acidophilus (Florajen3 Capsule) 1 each TID PO Last administered on 10/13/16 21:11; Admin Dose 1 EACH; Start 10/03/16 at 21:00 Hydromorphone HCl (Dilaudid) 0.5 mg Q4H PRN IV PAIN Last administered on 03:22; Admin Dose 0.5 MG; Start 10/06/16 at 18:30 Promethazine HCl/ Codeine (Phenergan/ Codeine) 10 ml BID PRN PO COUGH; Start at 20:30 Morphine Sulfate 60 mg 60 mg Q6 PO Last administered on 10/14/16 06:07; Admin Dose 60 MG; Start 10/09/16 at 12:00 Metronidazole/N/A (Flagyl 500 Mg (Pmx)/Evac Container) 50 ml @ 50 mls/hr Q8 IVPB Last administered on 10/14/16 06:08; Admin Dose 50 MLS/HR; Start at 22:00 Sodium Chloride 1 gm 1 gm BID PO Last administered on 10/14/16 09:08; Admin Dose 1 GM; Start 10/12/16 at 21:00 Amikacin Sulfate/ Dextrose (Amikacin/D5W) 102.8 ml @ 102.8 mls/ hr Q36H IVPB ; Start 10/14/16 at 21:00 DIONNE SAUCEDA MD Oct 14, 2016 10:43
[2016-10-14] MEDS: SOD CHLORIDE 0.9% 1,000 ML IV SCH (11:56)
--- NOTE | 2016-10-14 12:42 | PN ---
Date/Time of Note Date/Time of Note DATE: 10/14/16 TIME: 12:41 Assessment/Plan VTE Prophylaxis VTE Prophylaxis Intervention: other Lines/Catheters IV [facility]ter Type (from [facility]): PICC Line Central line still needed: Yes Urinary Cath still in place: Yes Reason Cath still needed: skin wounds contaminated by urine Assessment/Plan Chief Complaint/Hosp Course - Recurrent sepsis, resolving. Dr. Coleman is following in infection disease consultation. Continue antibiotics per ID. - Polymicrobial urinary tract infection, this post treatment. - Left lung squamous cell carcinoma. Patient is not a candidate for chemotherapy. - Chronic obstructive pulmonary disease. Continue breathing treatment. - Multiple decubitus ulcers with history of debridement. Continue current wound care. Wound culture is growing polymicrobial organisms. Continue antibiotics per ID. - Methicillin-resistant Staphylococcus aureus nares colonization. - Cachexia. Optimize nutrition. - Dysphagia with G-tube placement. Continue G-tube feeding. Aspiration precaution. - Chronic urinary retention. Continue George catheter. - Hypothyroidism. TSH is within normal limits. Continue Synthroid. - Anemia of chronic disease. Undergoing blood transfusion. - Hyponatremia, Dr. Zapata is following in nephrology consultation. - Right hand swelling, pending CT scan of the right hand. Problems: Subjective 24 Hr Interval Summary Free Text/Dictation Patient complain of pain Exam/Review of Systems Vital Signs Vitals Vital Signs Date Time Temp Pulse Resp B/P Pulse Ox O2 Delivery O2 Flow Rate FiO2 10/14/16 07:55 98.7 94 16 100/68 98 10/14/16 01:35 2.0 10/13/16 20:10 Nasal Cannula Intake and Output 10/13/16 10/13/16 10/14/16 15:00 23:00 07:00 Intake Total 102.8 ml 200 ml 50 ml Output Total 650 ml Balance 102.8 ml -450 ml 50 ml Exam Constitutional: frail, well developed Head: atraumatic, normocephalic Neck: supple Respiratory: clear to auscultation Cardiovascular: regular rate and rhythm Gastrointestinal: non-tender, soft Extremities: normal pulses Results Result Diagram: 10/14/16 0455 10/14/16 0455 Results 24 hrs Laboratory Tests Test 10/14/16 04:55 White Blood Count 14.2 H Red Blood Count 3.57 L Hemoglobin 9.2 L Hematocrit 30.3 L Mean Corpuscular Volume 84.9 Mean Corpuscular Hemoglobin 25.8 L Mean Corpuscular Hemoglobin Concent 30.4 L Red Cell Distribution Width 17.3 H Platelet Count 410 Mean Platelet Volume 8.5 Neutrophils % 68.9 Lymphocytes % 12.9 L Monocytes % 12.3 H Eosinophils % 4.6 Basophils % 0.7 Nucleated Red Blood Cells % 0.0 Neutrophils # 9.8 H Lymphocytes # 1.8 Monocytes # 1.7 H Eosinophils # 0.7 H Basophils # 0.1 Nucleated Red Blood Cells # 0.0 Sodium Level 130 L Potassium Level 3.4 L Chloride Level 88 L Carbon Dioxide Level 34 H Anion Gap 11 Blood Urea Nitrogen 13 Creatinine 0.40 L Glucose Level 119 Calcium Level 8.2 L Medications Medications Current Medications Ondansetron HCl (Zofran Inj) 4 mg Q6 PRN IV NAUSEA AND/OR VOMITING; Start 09/26 at 22:30 Acetaminophen (Tylenol Tab) 650 mg Q6H PRN PO PAIN AND OR ELEVATED TEMP Last administered on 10/12/16 16:09; Admin Dose 650 MG; Start 09/26/16 at 23:00 Alprazolam (Xanax) 0.5 mg Q12 PRN PO ANXIETY Last administered on 10/04/16 20: 29; Admin Dose 0.5 MG; Start 09/26/16 at 23:00 Ascorbic Acid (Vitamin C) 500 mg BID PO Last administered on 10/14/16 09:07; Admin Dose 500 MG; Start 09/27/16 at 09:00 Atorvastatin Calcium (Lipitor) 20 mg QHS PO Last administered on 10/13/16 21: 11; Admin Dose 20 MG; Start 09/27/16 at 21:00 Diazepam (Valium) 10 mg DAILY PO Last administered on 10/14/16 09:07; Admin Dose 10 MG; Start 09/27/16 at 09:00 Docusate Sodium (Colace) 100 mg Q12H PRN PO CONSTIPATION; Start 09/26/16 at 23: 00 Duloxetine HCl (Cymbalta) 20 mg DAILY PO Last administered on 10/14/16 09:08; Admin Dose 20 MG; Start 09/27/16 at 09:00 Gabapentin (Neurontin) 300 mg TID PO Last administered on 10/14/16 09:07; Admin Dose 300 MG; Start 09/27/16 at 09:00 Zolpidem Tartrate (Ambien) 5 mg QHS PRN PO INSOMNIA Last administered on 02:35; Admin Dose 5 MG; Start 09/26/16 at 23:00 Collagenase (Santyl) 1 applic DAILY TOP Last administered on 10/11/16 08:12; Admin Dose 1 APPLIC; Start 09/27/16 at 09:00 Collagenase (Santyl) 1 applic PRN PRN TOP SOILED OR DISLODGED DRESSING; Start 09/27/16 at 05:00 Lansoprazole (Prevacid) 30 mg DAILY@06 GTB Last administered on 10/14/16 06:08 ; Admin Dose 30 MG; Start 09/28/16 at 06:00 Mupirocin (Bactroban) 1 applic BID TOP Last administered on 10/14/16 09:15; Admin Dose 1 APPLIC; Start 09/28/16 at 21:00 Cromolyn Sodium (Nasalcrom) 1 spray QID NASAL Last administered on 10/14/16 09 :14; Admin Dose 1 SPRAY; Start 09/29/16 at 11:02 Linezolid (Zyvox) 600 mg BID PO Last administered on 10/14/16 09:08; Admin Dose 600 MG; Start 09/29/16 at 21:00 Amikacin Sulfate (Amikacin Iv Per Pharmacy) AMIKACIN PER PHARMACY NOTE XX ; Start 09/29/16 at 15:30 Phenol (Cepastat Lozenge) 1 lozenge Q2H PRN MT SORE THROAT Last administered on 10/02/16 12:48; Admin Dose 1 LOZENGE; Start 10/01/16 at 19:00 IV Flush (NS 10 ml) 10 ml PRN PRN IV IV PROTOCOL; Start 10/02/16 at 19:00 Lactobacillus Acidophilus (Florajen3 Capsule) 1 each TID PO Last administered on 10/13/16 21:11; Admin Dose 1 EACH; Start 10/03/16 at 21:00 Hydromorphone HCl (Dilaudid) 0.5 mg Q4H PRN IV PAIN Last administered on 10:49; Admin Dose 0.5 MG; Start 10/06/16 at 18:30 Promethazine HCl/ Codeine (Phenergan/ Codeine) 10 ml BID PRN PO COUGH; Start at 20:30 Morphine Sulfate 60 mg 60 mg Q6 PO Last administered on 10/14/16 06:07; Admin Dose 60 MG; Start 10/09/16 at 12:00 Metronidazole 250 mg/N/A 50 ml @ 50 mls/hr Q8 IVPB Last administered on 06:08; Admin Dose 50 MLS/HR; Start 10/10/16 at 22:00 Amikacin Sulfate 700 mg/Dextrose 102.8 ml @ 102.8 mls/ hr Q36H IVPB ; Start at 21:00 Potassium Chloride 20 meq/ Sodium Chloride 110 ml @ 55 mls/hr ONCE ONCE IVPB ; Start 10/14/16 at 13:00; Stop 10/14/16 at 14:59 Sodium Chloride (NS) 1,000 ml @ 70 mls/hr [id number] IV Last administered on 10/14 11:56; Admin Dose 70 MLS/HR; Start 10/14/16 at 11:00 MICHAEL HOROWITZ Oct 14, 2016 12:42
[2016-10-14] MEDS ORDERED: POTASSIUM CHLORIDE 20 MEQ in SOD CHLORIDE 0.9% 100 ML IVPB ONE (13:00)
[2016-10-14 20:06] VITALS: BP 105/72; RESP 18
[2016-10-14] MEDS: ATORVASTATIN 20 MG TAB PO SCH (21:24)
[2016-10-14] MEDS: AMIKACIN 700 MG in DEXTROSE 5% 100 ML IVPB SCH (21:30)
--- NOTE | 2016-10-14 23:15 | CONS ---
Date/Time of Note Date/Time of Note DATE: 10/14/16 TIME: 23:15 Assessment/Plan Assessment/Plan Chief Complaint/Hosp Course ID PROGRESS NOTE ABX: Amikacin + Zyvox + Flagyl 24H INTERVAL SUMMARY * Clinically no changes -- supplemental O2, right hand/wrist pain -- CT showed triscaphe arthritis -- Probable pseudogout best treated w/NSAIDS * SPEECH Tx note appreciated: FOR ORAL GRATIFICATION puree/thin liquid by spoon or small sip by cup. NO STRAW. Continue TF for nutrition PHYSICAL EXAMINATION: GENERAL: This is a chronically ill-appearing, frail 66 yo F HEENT: Unremarkable -- NECK: Supple, trachea midline. CHEST: Rise symmetrical without dyspnea ABDOMEN: Refuses exam EXTREMITIES: Moves all extremities, Without cyanosis. ID ASSESSMENT: 66 yo F w/PMHx Dementia, CVA(chronic left thalamic lacunar infarction), Tobacco/ COPD-Emphysema/Lung Cancer re-admit with: 1. SIRS => RESOLVING * Afebrile * Chronic mild tachycardia - albuterol * Chronic elevated WBC 2. Recurrent polymicrobial UTI * urine culture growing Proteus mirabilis and Klebsiella pneumoniae, both susceptible to amikacin and Zosyn. 3. Urinary retention with chronic George=>Probable neurogenic bladder 5. Status post acute respiratory failure secondary to chronic obstructive pulmonary disease exacerbation. * O2 dependent via NC, chronic recurrent cough, CXR w/persistent lung mass 6. Chronic debility w/Cachexia. 7. Multiple decubitus with a history of debridement. * Wound culture WOUND CULTURE Final Organism 1 CITROBACTER AMALONATICUS Organism 2 K PNEUMO ESBL Organism 3 ESCHERICHIA COLI (ESBL) Organism 4 VANCO RESISTANT ENTEROCOCCUS Organism 5 METHICILLIN RESISTANT S.AUREUS Organism 6 PROTEUS MIRABILIS 8. H/O DJD spine -> Hx of lumbar spinal fusion 9 .H/O Hypertension w/HTN heart disease mild-mod cLVH on ECHO w/diastolic dysfunction STG I 10. Right hand/wrist pain => CT showed triscaphe arthritis -- Probable pseudogout best treated w/NSAIDS (+) MRSA Nares screen ->Bactroban INVASIVES: PICC, FC, Peg ALLERGY: PENICILLIN. CURRENT ABX: ABX: Amikacin + Zyvox + Flagyl ID PLAN: * Continue wound vac Tx for decubs, continue nutrition, pain meds * Continue ABX + added Flagyl IV due to persistent malodorous wounds -- empiric anaerobic coverage * ASP Precautions * CT showed triscaphe arthritis -- Probable pseudogout best treated w/NSAIDS . Problems: Consultation Date/Type/Reason Admit Date/Time Sep 26, 2016 at 20:07 Type of Consultation: ID Referring Provider: DRE LOBATO MD Exam/Review of Systems Vital Signs Vitals Vital Signs Date Time Temp Pulse Resp B/P Pulse Ox O2 Delivery O2 Flow Rate FiO2 10/14/16 22:27 2.0 10/14/16 20:06 97.7 93 18 105/72 97 10/14/16 08:15 Nasal Cannula Intake and Output 10/13/16 10/13/16 10/14/16 15:00 23:00 07:00 Intake Total 102.8 ml 200 ml 50 ml Output Total 650 ml Balance 102.8 ml -450 ml 50 ml Results Result Diagram: 10/14/16 0455 10/14/16 0455 Results 24 hrs Laboratory Tests Test 10/14/16 04:55 White Blood Count 14.2 H Red Blood Count 3.57 L Hemoglobin 9.2 L Hematocrit 30.3 L Mean Corpuscular Volume 84.9 Mean Corpuscular Hemoglobin 25.8 L Mean Corpuscular Hemoglobin Concent 30.4 L Red Cell Distribution Width 17.3 H Platelet Count 410 Mean Platelet Volume 8.5 Neutrophils % 68.9 Lymphocytes % 12.9 L Monocytes % 12.3 H Eosinophils % 4.6 Basophils % 0.7 Nucleated Red Blood Cells % 0.0 Neutrophils # 9.8 H Lymphocytes # 1.8 Monocytes # 1.7 H Eosinophils # 0.7 H Basophils # 0.1 Nucleated Red Blood Cells # 0.0 Sodium Level 130 L Potassium Level 3.4 L Chloride Level 88 L Carbon Dioxide Level 34 H Anion Gap 11 Blood Urea Nitrogen 13 Creatinine 0.40 L Glucose Level 119 Calcium Level 8.2 L Medications Medications Current Medications Ondansetron HCl (Zofran Inj) 4 mg Q6 PRN IV NAUSEA AND/OR VOMITING; Start 09/26 at 22:30 Acetaminophen (Tylenol Tab) 650 mg Q6H PRN PO PAIN AND OR ELEVATED TEMP Last administered on 10/12/16t 16:09; Admin Dose 650 MG; Start 09/26/16 at 23:00 Alprazolam (Xanax) 0.5 mg Q12 PRN PO ANXIETY Last administered on 10/04/16 20: 29; Admin Dose 0.5 MG; Start 09/26/16 at 23:00 Ascorbic Acid (Vitamin C) 500 mg BID PO Last administered on 10/14/16 21:24; Admin Dose 500 MG; Start 09/27/16 at 09:00 Atorvastatin Calcium (Lipitor) 20 mg QHS PO Last administered on 10/14/16 21: 24; Admin Dose 20 MG; Start 09/27/16 at 21:00 Diazepam (Valium) 10 mg DAILY PO Last administered on 10/14/16 09:07; Admin Dose 10 MG; Start 09/27/16 at 09:00 Docusate Sodium (Colace) 100 mg Q12H PRN PO CONSTIPATION; Start 09/26/16 at 23: 00 Duloxetine HCl (Cymbalta) 20 mg DAILY PO Last administered on 10/14/16 09:08; Admin Dose 20 MG; Start 09/27/16 at 09:00 Gabapentin (Neurontin) 300 mg TID PO Last administered on 10/14/16 21:24; Admin Dose 300 MG; Start 09/27/16 at 09:00 Zolpidem Tartrate (Ambien) 5 mg QHS PRN PO INSOMNIA Last administered on 02:35; Admin Dose 5 MG; Start 09/26/16 at 23:00 Collagenase (Santyl) 1 applic DAILY TOP Last administered on 10/11/16 08:12; Admin Dose 1 APPLIC; Start 09/27/16 at 09:00 Collagenase (Santyl) 1 applic PRN PRN TOP SOILED OR DISLODGED DRESSING; Start 09/27/16 at 05:00 Lansoprazole (Prevacid) 30 mg DAILY@06 GTB Last administered on 10/14/16 06:08 ; Admin Dose 30 MG; Start 09/28/16 at 06:00 Mupirocin (Bactroban) 1 applic BID TOP Last administered on 10/14/16 21:25; Admin Dose 1 APPLIC; Start 09/28/16 at 21:00 Cromolyn Sodium (Nasalcrom) 1 spray QID NASAL Last administered on 10/14/16 21 :23; Admin Dose 1 SPRAY; Start 09/29/16 at 11:02 Linezolid (Zyvox) 600 mg BID PO Last administered on 10/14/16 21:24; Admin Dose 600 MG; Start 09/29/16 at 21:00 Amikacin Sulfate (Amikacin Iv Per Pharmacy) AMIKACIN PER PHARMACY NOTE XX ; Start 09/29/16 at 15:30 Phenol (Cepastat Lozenge) 1 lozenge Q2H PRN MT SORE THROAT Last administered on 10/02/16 12:48; Admin Dose 1 LOZENGE; Start 10/01/16 at 19:00 IV Flush (NS 10 ml) 10 ml PRN PRN IV IV PROTOCOL; Start 10/02/16 at 19:00 Lactobacillus Acidophilus (Florajen3 Capsule) 1 each TID PO Last administered on 10/14/16 21:24; Admin Dose 1 EACH; Start 10/03/16 at 21:00 Hydromorphone HCl (Dilaudid) 0.5 mg Q4H PRN IV PAIN Last administered on 16:05; Admin Dose 0.5 MG; Start 10/06/16 at 18:30 Promethazine HCl/ Codeine (Phenergan/ Codeine) 10 ml BID PRN PO COUGH; Start at 20:30 Morphine Sulfate 60 mg 60 mg Q6 PO Last administered on 10/14/16 18:11; Admin Dose 60 MG; Start 10/09/16 at 12:00 Metronidazole 250 mg/N/A 50 ml @ 50 mls/hr Q8 IVPB Last administered on 22:51; Admin Dose 50 MLS/HR; Start 10/10/16 at 22:00 Amikacin Sulfate 700 mg/Dextrose 102.8 ml @ 102.8 mls/ hr Q36H IVPB Last administered on 10/14/16 21:30; Admin Dose 102.8 MLS/HR; Start 10/14/16 at 21: 00 Sodium Chloride (NS) 1,000 ml @ 70 mls/hr [id number] IV Last administered on 10/14 11:56; Admin Dose 70 MLS/HR; Start 10/14/16 at 11:00 ALMA ROSARIO NP Oct 14, 2016 23:15
[2016-10-15] MEDS: morphine (ER) 30 MG TAB PO SCH ×5 (00:06→23:42)
[2016-10-15] MEDS: SOD CHLORIDE 0.9% 1,000 ML IV SCH ×3 (01:18→23:58)
[2016-10-15] MEDS: HYDROmorphONE 1 MG/ML SYG IV PRN ×3 (04:50→21:14)
[2016-10-15] MEDS: metroNIDAZOLE 500 MG/NS (PMX) 250 MG in EVAC CONTAINER 1 BOTTLE IVPB SCH ×3 (05:43→22:03)
[2016-10-15] MEDS: LEVOTHYROXINE 125 MCG TAB PO SCH (06:06)
[2016-10-15] MEDS: LANSOPRAZOLE 30 MG CAP GTB SCH (06:07)
[2016-10-15 08:43] VITALS: BP 112/68; RESP 17
[2016-10-15] MEDS: DULOXETINE 20 MG CAP DR PO SCH (08:51)
[2016-10-15] MEDS: ASCORBIC ACID 500 MG TAB PO SCH ×2 (08:51→22:00)
[2016-10-15] MEDS: GABAPENTIN 300 MG CAP PO SCH ×3 (08:51→22:00)
[2016-10-15] MEDS: L ACIDOPHIL/B LACTIS/B LONGUM CAPSULE PO SCH ×3 (08:51→22:00)
[2016-10-15] MEDS: DIAZEPAM 5 MG TAB PO SCH (08:51)
[2016-10-15] MEDS: ACETAMINOPHEN 325 MG TAB PO PRN ×2 (08:51→14:36)
[2016-10-15] MEDS: ZYVOX 600 MG TAB PO SCH ×2 (08:51→22:00)
[2016-10-15] MEDS: COLLAGENASE 30 GM TUBE TOP SCH (08:52)
[2016-10-15] MEDS: CROMOLYN 4% 26ML NAS INH NASAL SCH ×4 (08:52→22:01)
[2016-10-15] MEDS: MUPIROCIN 2% 22 GM OINT TOP SCH ×2 (08:52→22:01)
--- NOTE | 2016-10-15 12:36 | PN ---
Date/Time of Note Date/Time of Note DATE: 10/15/16 TIME: 12:36 Assessment/Plan VTE Prophylaxis VTE Prophylaxis Intervention: other Lines/Catheters IV Catheter Type (from Nrs): PICC Line Central line still needed: Yes Urinary Cath still in place: Yes Reason Cath still needed: skin wounds contaminated by urine Assessment/Plan Chief Complaint/Hosp Course - Recurrent sepsis, resolving. Dr. Coleman is following in infection disease consultation. Continue antibiotics per ID. - Polymicrobial urinary tract infection, this post treatment. - Left lung squamous cell carcinoma. Patient is not a candidate for chemotherapy. - Chronic obstructive pulmonary disease. Continue breathing treatment. - Multiple decubitus ulcers with history of debridement. Continue current wound care. Wound culture is growing polymicrobial organisms. Continue antibiotics per ID. - Methicillin-resistant Staphylococcus aureus nares colonization. - Cachexia. Optimize nutrition. - Dysphagia with G-tube placement. Continue G-tube feeding. Aspiration precaution. - Chronic urinary retention. Continue George catheter. - Hypothyroidism. TSH is within normal limits. Continue Synthroid. - Anemia of chronic disease. Undergoing blood transfusion. - Hyponatremia, Dr. Zapata is following in nephrology consultation. - Right hand swelling, pending CT scan of the right hand. Problems: Subjective 24 Hr Interval Summary Free Text/Dictation Patient want more pain medication Exam/Review of Systems Vital Signs Vitals Vital Signs Date Time Temp Pulse Resp B/P Pulse Ox O2 Delivery O2 Flow Rate FiO2 10/15/16 12:09 Nasal Cannula 2.0 10/15/16 08:43 98.1 90 17 112/68 96 Intake and Output 10/14/16 10/14/16 10/15/16 15:00 23:00 07:00 Intake Total 50 ml 562.8 ml 1890 ml Output Total 900 ml 1000 ml Balance 50 ml -337.2 ml 890 ml Exam Constitutional: well developed Head: atraumatic, normocephalic Neck: supple Respiratory: diminished breath sounds Cardiovascular: regular rate and rhythm Gastrointestinal: non-tender, soft Extremities: normal pulses Results Result Diagram: 10/14/16 0455 10/14/16 0455 Medications Medications Current Medications Ondansetron HCl (Zofran Inj) 4 mg Q6 PRN IV NAUSEA AND/OR VOMITING; Start 09/26 at 22:30 Acetaminophen (Tylenol Tab) 650 mg Q6H PRN PO PAIN AND OR ELEVATED TEMP Last administered on 10/15/16 08:51; Admin Dose 650 MG; Start 09/26/16 at 23:00 Alprazolam (Xanax) 0.5 mg Q12 PRN PO ANXIETY Last administered on 10/04/16 20: 29; Admin Dose 0.5 MG; Start 09/26/16 at 23:00 Ascorbic Acid (Vitamin C) 500 mg BID PO Last administered on 10/15/16 08:51; Admin Dose 500 MG; Start 09/27/16 at 09:00 Atorvastatin Calcium (Lipitor) 20 mg QHS PO Last administered on 10/14/16 21: 24; Admin Dose 20 MG; Start 09/27/16 at 21:00 Diazepam (Valium) 10 mg DAILY PO Last administered on 10/15/16 08:51; Admin Dose 10 MG; Start 09/27/16 at 09:00 Docusate Sodium (Colace) 100 mg Q12H PRN PO CONSTIPATION; Start 09/26/16 at 23: 00 Duloxetine HCl (Cymbalta) 20 mg DAILY PO Last administered on 10/15/16 08:51; Admin Dose 20 MG; Start 09/27/16 at 09:00 Gabapentin (Neurontin) 300 mg TID PO Last administered on 10/15/16 12:17; Admin Dose 300 MG; Start 09/27/16 at 09:00 Zolpidem Tartrate (Ambien) 5 mg QHS PRN PO INSOMNIA Last administered on 02:35; Admin Dose 5 MG; Start 09/26/16 at 23:00 Collagenase (Santyl) 1 applic DAILY TOP Last administered on 10/15/16 08:52; Admin Dose 1 APPLIC; Start 09/27/16 at 09:00 Collagenase (Santyl) 1 applic PRN PRN TOP SOILED OR DISLODGED DRESSING; Start 09/27/16 at 05:00 Lansoprazole (Prevacid) 30 mg DAILY@06 GTB Last administered on 10/15/16 06:07 ; Admin Dose 30 MG; Start 09/28/16 at 06:00 Mupirocin (Bactroban) 1 applic BID TOP Last administered on 10/15/16 08:52; Admin Dose 1 APPLIC; Start 09/28/16 at 21:00 Cromolyn Sodium (Nasalcrom) 1 spray QID NASAL Last administered on 10/15/16 12 :18; Admin Dose 1 SPRAY; Start 09/29/16 at 11:02 Linezolid (Zyvox) 600 mg BID PO Last administered on 10/15/16 08:51; Admin Dose 600 MG; Start 09/29/16 at 21:00 Amikacin Sulfate (Amikacin Iv Per Pharmacy) AMIKACIN PER PHARMACY NOTE XX ; Start 09/29/16 at 15:30 Phenol (Cepastat Lozenge) 1 lozenge Q2H PRN MT SORE THROAT Last administered on 10/02/16 12:48; Admin Dose 1 LOZENGE; Start 10/01/16 at 19:00 IV Flush (NS 10 ml) 10 ml PRN PRN IV IV PROTOCOL; Start 10/02/16 at 19:00 Lactobacillus Acidophilus (Florajen3 Capsule) 1 each TID PO Last administered on 10/15/16 12:18; Admin Dose 1 EACH; Start 10/03/16 at 21:00 Hydromorphone HCl (Dilaudid) 0.5 mg Q4H PRN IV PAIN Last administered on 04:50; Admin Dose 0.5 MG; Start 10/06/16 at 18:30 Promethazine HCl/ Codeine (Phenergan/ Codeine) 10 ml BID PRN PO COUGH; Start at 20:30 Morphine Sulfate 60 mg 60 mg Q6 PO Last administered on 10/15/16 12:18; Admin Dose 60 MG; Start 10/09/16 at 12:00 Metronidazole 250 mg/N/A 50 ml @ 50 mls/hr Q8 IVPB Last administered on 05:43; Admin Dose 50 MLS/HR; Start 10/10/16 at 22:00 Amikacin Sulfate 700 mg/Dextrose 102.8 ml @ 102.8 mls/ hr Q36H IVPB Last administered on 10/14/16 21:30; Admin Dose 102.8 MLS/HR; Start 10/14/16 at 21: 00 Sodium Chloride (NS) 1,000 ml @ 70 mls/hr [id number] IV Last administered on 10/14 11:56; Admin Dose 70 MLS/HR; Start 10/14/16 at 11:00 MICHAEL HOROWITZ Oct 15, 2016 12:36
--- NOTE | 2016-10-15 17:00 | CONS ---
Date/Time of Note Date/Time of Note DATE: 10/15/16 TIME: 16:58 Assessment/Plan Assessment/Plan Chief Complaint/Hosp Course ID PROGRESS NOTE ABX: Amikacin + Zyvox + Flagyl 24H INTERVAL SUMMARY * Awake, alert, in process of sacral wound vac change -- wound with pink granulation tissue, now with left hand edema/pain improves with warm pack -- right hand/wrist pain -- CT showed triscaphe arthritis -- possibly pseudogout best treated w/NSAIDS * SPEECH Tx note appreciated: FOR ORAL GRATIFICATION puree/thin liquid by spoon or small sip by cup. NO STRAW. Continue TF for nutrition PHYSICAL EXAMINATION: GENERAL: This is a chronically ill-appearing, frail 66 yo F HEENT: Unremarkable -- NECK: Supple, trachea midline. CHEST: Rise symmetrical without dyspnea ABDOMEN: Refuses exam EXTREMITIES: Moves all extremities, Without cyanosis. ID ASSESSMENT: 66 yo F w/PMHx Dementia, CVA(chronic left thalamic lacunar infarction), Tobacco/ COPD-Emphysema/Lung Cancer re-admit with: 1. SIRS => RESOLVING * Afebrile * Chronic mild tachycardia - albuterol * Chronic elevated WBC 2. Recurrent polymicrobial UTI * urine culture growing Proteus mirabilis and Klebsiella pneumoniae, both susceptible to amikacin and Zosyn. 3. Urinary retention with chronic George=>Probable neurogenic bladder 5. Status post acute respiratory failure secondary to chronic obstructive pulmonary disease exacerbation. * O2 dependent via NC, chronic recurrent cough, CXR w/persistent lung mass 6. Chronic debility w/Cachexia. 7. Multiple decubitus with a history of debridement. * Wound culture WOUND CULTURE Final Organism 1 CITROBACTER AMALONATICUS Organism 2 K PNEUMO ESBL Organism 3 ESCHERICHIA COLI (ESBL) Organism 4 VANCO RESISTANT ENTEROCOCCUS Organism 5 METHICILLIN RESISTANT S.AUREUS Organism 6 PROTEUS MIRABILIS 8. H/O DJD spine -> Hx of lumbar spinal fusion 9 .H/O Hypertension w/HTN heart disease mild-mod cLVH on ECHO w/diastolic dysfunction STG I 10. Right hand/wrist pain => CT showed triscaphe arthritis -- Probable pseudogout best treated w/NSAIDS (+) MRSA Nares screen ->Bactroban INVASIVES: PICC, FC, Peg ALLERGY: PENICILLIN. CURRENT ABX: ABX: Amikacin + Zyvox + Flagyl ID PLAN: * Continue wound vac Tx for decubs, continue nutrition, pain meds * Continue ABX + added Flagyl IV due to persistent malodorous wounds -- empiric anaerobic coverage * ASP Precautions * Bilateral hand/wrist pain = CT showed triscaphe arthritis -- this may possibly be pseudogout best treated with NSAIDS . Problems: Consultation Date/Type/Reason Admit Date/Time Sep 26, 2016 at 20:07 Type of Consultation: ID Referring Provider: DRE LOBATO MD Exam/Review of Systems Vital Signs Vitals Vital Signs Date Time Temp Pulse Resp B/P Pulse Ox O2 Delivery O2 Flow Rate FiO2 10/15/16 12:09 Nasal Cannula 2.0 10/15/16 08:43 98.1 90 17 112/68 96 Intake and Output 10/14/16 10/14/16 10/15/16 15:00 23:00 07:00 Intake Total 50 ml 562.8 ml 1890 ml Output Total 900 ml 1000 ml Balance 50 ml -337.2 ml 890 ml Results Result Diagram: 10/14/16 0455 10/14/16 0455 Medications Medications Current Medications Ondansetron HCl (Zofran Inj) 4 mg Q6 PRN IV NAUSEA AND/OR VOMITING; Start 09/26 at 22:30 Acetaminophen (Tylenol Tab) 650 mg Q6H PRN PO PAIN AND OR ELEVATED TEMP Last administered on 10/15/16 14:36; Admin Dose 650 MG; Start 09/26/16 at 23:00 Alprazolam (Xanax) 0.5 mg Q12 PRN PO ANXIETY Last administered on 10/04/16 20: 29; Admin Dose 0.5 MG; Start 09/26/16 at 23:00 Ascorbic Acid (Vitamin C) 500 mg BID PO Last administered on 10/15/16 08:51; Admin Dose 500 MG; Start 09/27/16 at 09:00 Atorvastatin Calcium (Lipitor) 20 mg QHS PO Last administered on 10/14/16 21: 24; Admin Dose 20 MG; Start 09/27/16 at 21:00 Diazepam (Valium) 10 mg DAILY PO Last administered on 10/15/16 08:51; Admin Dose 10 MG; Start 09/27/16 at 09:00 Docusate Sodium (Colace) 100 mg Q12H PRN PO CONSTIPATION; Start 09/26/16 at 23: 00 Duloxetine HCl (Cymbalta) 20 mg DAILY PO Last administered on 10/15/16 08:51; Admin Dose 20 MG; Start 09/27/16 at 09:00 Gabapentin (Neurontin) 300 mg TID PO Last administered on 10/15/16 12:17; Admin Dose 300 MG; Start 09/27/16 at 09:00 Zolpidem Tartrate (Ambien) 5 mg QHS PRN PO INSOMNIA Last administered on 02:35; Admin Dose 5 MG; Start 09/26/16 at 23:00 Collagenase (Santyl) 1 applic DAILY TOP Last administered on 10/15/16 08:52; Admin Dose 1 APPLIC; Start 09/27/16 at 09:00 Collagenase (Santyl) 1 applic PRN PRN TOP SOILED OR DISLODGED DRESSING; Start 09/27/16 at 05:00 Lansoprazole (Prevacid) 30 mg DAILY@06 GTB Last administered on 10/15/16 06:07 ; Admin Dose 30 MG; Start 09/28/16 at 06:00 Mupirocin (Bactroban) 1 applic BID TOP Last administered on 10/15/16 08:52; Admin Dose 1 APPLIC; Start 09/28/16 at 21:00 Cromolyn Sodium (Nasalcrom) 1 spray QID NASAL Last administered on 10/15/16 12 :18; Admin Dose 1 SPRAY; Start 09/29/16 at 11:02 Linezolid (Zyvox) 600 mg BID PO Last administered on 10/15/16 08:51; Admin Dose 600 MG; Start 09/29/16 at 21:00 Amikacin Sulfate (Amikacin Iv Per Pharmacy) AMIKACIN PER PHARMACY NOTE XX ; Start 09/29/16 at 15:30 Phenol (Cepastat Lozenge) 1 lozenge Q2H PRN MT SORE THROAT Last administered on 10/02/16 12:48; Admin Dose 1 LOZENGE; Start 10/01/16 at 19:00 IV Flush (NS 10 ml) 10 ml PRN PRN IV IV PROTOCOL; Start 10/02/16 at 19:00 Lactobacillus Acidophilus (Florajen3 Capsule) 1 each TID PO Last administered on 10/15/16 12:18; Admin Dose 1 EACH; Start 10/03/16 at 21:00 Hydromorphone HCl (Dilaudid) 0.5 mg Q4H PRN IV PAIN Last administered on 16:29; Admin Dose 0.5 MG; Start 10/06/16 at 18:30 Promethazine HCl/ Codeine (Phenergan/ Codeine) 10 ml BID PRN PO COUGH; Start at 20:30 Morphine Sulfate 60 mg 60 mg Q6 PO Last administered on 10/15/16 12:18; Admin Dose 60 MG; Start 10/09/16 at 12:00 Metronidazole 250 mg/N/A 50 ml @ 50 mls/hr Q8 IVPB Last administered on 14:36; Admin Dose 50 MLS/HR; Start 10/10/16 at 22:00 Amikacin Sulfate 700 mg/Dextrose 102.8 ml @ 102.8 mls/ hr Q36H IVPB Last administered on 10/14/16 21:30; Admin Dose 102.8 MLS/HR; Start 10/14/16 at 21: 00 Sodium Chloride (NS) 1,000 ml @ 70 mls/hr [id number] IV Last administered on 10/15 16:29; Admin Dose 70 MLS/HR; Start 10/14/16 at 11:00 ALMA ROSARIO NP Oct 15, 2016 17:00
--- NOTE | 2016-10-15 17:28 | CONS ---
Date/Time of Note Date/Time of Note DATE: 10/15/16 TIME: 17:23 Assessment/Plan Assessment/Plan Additional Assessment/Plan 1. Hyponatremia, likely secondary to hypovolemic hyponatremia. 2. Status post acute kidney injury on chronic kidney disease due to systemic inflammatory response syndrome. 3. Systemic inflammatory response syndrome. 4. History of recurrent polymicrobial urinary tract infections. 5. History of dementia. 6. History of previous cerebrovascular accident. 7. History of chronic obstructive pulmonary disease, recently had acute respiratory failure secondary to chronic obstructive pulmonary disease exacerbation. 8. History of urinary retention with a chronic George catheter in place. 9. Chronic debility with cachexia. 10. Multiple decubitus ulcers with a history of debridement. 11. History of degenerative joint disease of spine. 12. History of hypertension and hypertensive heart disease with mild to moderate concentric left ventricular hypertrophy and echocardiogram with diastolic dysfunction stage I. PLAN: will give KCl 20meQ iv x 1 dose now , S/p 1 liter NS yesterday Na dropped to 130 again today , pt likey has Component of SAIDH causing hypoantreia, due to acute on chronic pain will follow up Consultation Date/Type/Reason Admit Date/Time Sep 26, 2016 at 20:07 Initial Consult Date September Type of Consultation: NEPHROLOGY Referring Provider: DRE LOBATO MD 24 HR Interval Summary Free Text/Dictation K low, Na still low Exam/Review of Systems Vital Signs Vitals Vital Signs Date Time Temp Pulse Resp B/P Pulse Ox O2 Delivery O2 Flow Rate FiO2 10/15/16 12:09 Nasal Cannula 2.0 10/15/16 08:43 98.1 90 17 112/68 96 Intake and Output 10/14/16 10/14/16 10/15/16 15:00 23:00 07:00 Intake Total 50 ml 562.8 ml 1890 ml Output Total 900 ml 1000 ml Balance 50 ml -337.2 ml 890 ml Results Result Diagram: 10/14/16 0455 10/14/16 0455 Medications Medications Current Medications Ondansetron HCl (Zofran Inj) 4 mg Q6 PRN IV NAUSEA AND/OR VOMITING; Start 09/26 at 22:30 Acetaminophen (Tylenol Tab) 650 mg Q6H PRN PO PAIN AND OR ELEVATED TEMP Last administered on 10/15/16t 14:36; Admin Dose 650 MG; Start 09/26/16 at 23:00 Alprazolam (Xanax) 0.5 mg Q12 PRN PO ANXIETY Last administered on 10/04/16 20: 29; Admin Dose 0.5 MG; Start 09/26/16 at 23:00 Ascorbic Acid (Vitamin C) 500 mg BID PO Last administered on 10/15/16 08:51; Admin Dose 500 MG; Start 09/27/16 at 09:00 Atorvastatin Calcium (Lipitor) 20 mg QHS PO Last administered on 10/14/16 21: 24; Admin Dose 20 MG; Start 09/27/16 at 21:00 Diazepam (Valium) 10 mg DAILY PO Last administered on 10/15/16 08:51; Admin Dose 10 MG; Start 09/27/16 at 09:00 Docusate Sodium (Colace) 100 mg Q12H PRN PO CONSTIPATION; Start 09/26/16 at 23: 00 Duloxetine HCl (Cymbalta) 20 mg DAILY PO Last administered on 10/15/16 08:51; Admin Dose 20 MG; Start 09/27/16 at 09:00 Gabapentin (Neurontin) 300 mg TID PO Last administered on 10/15/16 12:17; Admin Dose 300 MG; Start 09/27/16 at 09:00 Zolpidem Tartrate (Ambien) 5 mg QHS PRN PO INSOMNIA Last administered on 02:35; Admin Dose 5 MG; Start 09/26/16 at 23:00 Collagenase (Santyl) 1 applic DAILY TOP Last administered on 10/15/16 08:52; Admin Dose 1 APPLIC; Start 09/27/16 at 09:00 Collagenase (Santyl) 1 applic PRN PRN TOP SOILED OR DISLODGED DRESSING; Start 09/27/16 at 05:00 Lansoprazole (Prevacid) 30 mg DAILY@06 GTB Last administered on 10/15/16 06:07 ; Admin Dose 30 MG; Start 09/28/16 at 06:00 Mupirocin (Bactroban) 1 applic BID TOP Last administered on 10/15/16 08:52; Admin Dose 1 APPLIC; Start 09/28/16 at 21:00 Cromolyn Sodium (Nasalcrom) 1 spray QID NASAL Last administered on 10/15/16 12 :18; Admin Dose 1 SPRAY; Start 09/29/16 at 11:02 Linezolid (Zyvox) 600 mg BID PO Last administered on 10/15/16 08:51; Admin Dose 600 MG; Start 09/29/16 at 21:00 Amikacin Sulfate (Amikacin Iv Per Pharmacy) AMIKACIN PER PHARMACY NOTE XX ; Start 09/29/16 at 15:30 Phenol (Cepastat Lozenge) 1 lozenge Q2H PRN MT SORE THROAT Last administered on 10/02/16 12:48; Admin Dose 1 LOZENGE; Start 10/01/16 at 19:00 IV Flush (NS 10 ml) 10 ml PRN PRN IV IV PROTOCOL; Start 10/02/16 at 19:00 Lactobacillus Acidophilus (Florajen3 Capsule) 1 each TID PO Last administered on 10/15/16 12:18; Admin Dose 1 EACH; Start 10/03/16 at 21:00 Hydromorphone HCl (Dilaudid) 0.5 mg Q4H PRN IV PAIN Last administered on 16:29; Admin Dose 0.5 MG; Start 10/06/16 at 18:30 Promethazine HCl/ Codeine (Phenergan/ Codeine) 10 ml BID PRN PO COUGH; Start at 20:30 Morphine Sulfate 60 mg 60 mg Q6 PO Last administered on 10/15/16 12:18; Admin Dose 60 MG; Start 10/09/16 at 12:00 Metronidazole 250 mg/N/A 50 ml @ 50 mls/hr Q8 IVPB Last administered on 14:36; Admin Dose 50 MLS/HR; Start 10/10/16 at 22:00 Amikacin Sulfate 700 mg/Dextrose 102.8 ml @ 102.8 mls/ hr Q36H IVPB Last administered on 10/14/16 21:30; Admin Dose 102.8 MLS/HR; Start 10/14/16 at 21: 00 Sodium Chloride (NS) 1,000 ml @ 70 mls/hr [id number] IV Last administered on 10/15 16:29; Admin Dose 70 MLS/HR; Start 10/14/16 at 11:00 DIONNE SAUCEDA MD Oct 15, 2016 17:28
[2016-10-15] MEDS ORDERED: POTASSIUM CHLORIDE 20 MEQ in SOD CHLORIDE 0.9% 100 ML IVPB ONE (17:30)
[2016-10-15 20:55] VITALS: BP 131/85; RESP 18
[2016-10-15] MEDS: ATORVASTATIN 20 MG TAB PO SCH (22:00)
[2016-10-16] MEDS: HYDROmorphONE 1 MG/ML SYG IV PRN ×3 (02:50→20:33)
[2016-10-16] MEDS: metroNIDAZOLE 500 MG/NS (PMX) 250 MG in EVAC CONTAINER 1 BOTTLE IVPB SCH ×3 (06:02→22:50)
[2016-10-16] MEDS: LANSOPRAZOLE 30 MG CAP GTB SCH (06:02)
[2016-10-16] MEDS: LEVOTHYROXINE 125 MCG TAB PO SCH (06:02)
[2016-10-16 06:14] LABS: ADD SCAN DIFF NO
[2016-10-16] MEDS: morphine (ER) 30 MG TAB PO SCH ×3 (06:15→16:59)
[2016-10-16 06:31] LABS: ABNORMAL IP MESSAGE 1; BASOPHIL # 0.1 10^3/ul (0.0-0.1); BASOPHILS % 0.6 % (0.0-2.0); EOSINOPHILS # 0.4 10^3/ul (0.0-0.5); EOSINOPHILS % 2.5 % (0.0-7.0); HEMOGLOBIN 9.7 g/dl (12.0-16.0); LYMPHOCYTES # 1.8 10^3/ul (0.8-2.9); LYMPHOCYTES % 12.7 % (15.0-51.0); MEAN CORPUSCULAR HEMOGLOBIN 25.7 pg (29.0-33.0); MEAN CORPUSCULAR HGB CONC 30.3 g/dl (32.0-37.0); MEAN CORPUSCULAR VOLUME 84.9 fl (82.0-101.0); MEAN PLATELET VOLUME 8.6 fl (7.4-10.4); MONOCYTE # 1.8 10^3/ul (0.3-0.9); MONOCYTES % 12.2 % (0.0-11.0); NEUTROPHIL # 10.3 10^3/ul (1.6-7.5); NEUTROPHILS % 71.2 % (39.0-77.0); PLATELET COUNT 378 10^3/UL (140-415); RED BLOOD COUNT 3.77 10^6/ul (4.20-5.40); RED CELL DISTRIBUTION WIDTH 17.5 % (11.5-14.5); WHITE BLOOD COUNT 14.5 10^3/ul (4.8-10.8)
[2016-10-16 06:55] LABS: POTASSIUM 3.7 mmol/L (3.5-5.1)
[2016-10-16 06:58] LABS: CREATININE 0.4 mg/dl (0.44-1.00)
[2016-10-16 06:59] LABS: CALCIUM 8.1 mg/dl (8.4-10.2)
[2016-10-16 08:03] VITALS: BP 93/60; RESP 17
[2016-10-16] MEDS: ACETAMINOPHEN 325 MG TAB PO PRN (08:57)
[2016-10-16] MEDS: GABAPENTIN 300 MG CAP PO SCH ×3 (08:58→20:33)
[2016-10-16] MEDS: DULOXETINE 20 MG CAP DR PO SCH (08:58)
[2016-10-16] MEDS: ZYVOX 600 MG TAB PO SCH ×2 (08:58→20:33)
[2016-10-16] MEDS: ASCORBIC ACID 500 MG TAB PO SCH ×2 (08:58→20:34)
[2016-10-16] MEDS: DIAZEPAM 5 MG TAB PO SCH (09:00)
[2016-10-16] MEDS: COLLAGENASE 30 GM TUBE TOP SCH (09:02)
[2016-10-16] MEDS: MUPIROCIN 2% 22 GM OINT TOP SCH ×2 (09:02→20:34)
[2016-10-16] MEDS: CROMOLYN 4% 26ML NAS INH NASAL SCH ×4 (09:02→20:35)
[2016-10-16] MEDS: L ACIDOPHIL/B LACTIS/B LONGUM CAPSULE PO SCH ×3 (09:07→20:33)
[2016-10-16] MEDS: AMIKACIN 700 MG in DEXTROSE 5% 100 ML IVPB SCH (09:10)
[2016-10-16] MEDS: ALTEPLASE (CATHFLO) 2 MG INJ CATHETER PRN ×2 (09:17→13:10)
[2016-10-16] MEDS: ALBUTEROL/IPRATROPIUM (NEB) 3 ML AMP NEB PRN ×2 (10:56→21:33)
--- NOTE | 2016-10-16 15:33 | PN ---
Date/Time of Note Date/Time of Note DATE: 10/16/16 TIME: 15:17 Assessment/Plan VTE Prophylaxis VTE Prophylaxis Intervention: SCD's Lines/Catheters IV [facility] PICC Line Central line still needed: Yes Urinary Cath still in place: Yes Reason Cath still needed: urinary retention Assessment/Plan Chief Complaint/Hosp Course ASSESSMENT AND PLAN: - Recurrent sepsis, resolving. Dr. Coleman is following in infection disease consultation. Continue antibiotics per ID. - Polymicrobial urinary tract infection, this post treatment. - Left lung squamous cell carcinoma. Patient is not a candidate for chemotherapy. - Chronic obstructive pulmonary disease. Continue breathing treatment. - Multiple decubitus ulcers with history of debridement. Continue current wound care. Wound culture is growing polymicrobial organisms. Continue antibiotics per ID. - Methicillin-resistant Staphylococcus aureus nares colonization. - Cachexia. Optimize nutrition. - Dysphagia with G-tube placement. Continue G-tube feeding. Aspiration precaution. - Chronic urinary retention. Continue George catheter. - Hypothyroidism. TSH is within normal limits. Continue Synthroid. - Anemia of chronic disease. Undergoing blood transfusion. - Hyponatremia, Dr. Zapata is following in nephrology consultation. - Right hand swelling, CT scan of the right hand is negative. Further recommendations based on clinical course. Plan of care discussed with Dr. Dozier. Problems: Subjective 24 Hr Interval Summary Free Text/Dictation Patient is remains afebrile, pain is well controlled, tolerates G-tube feeding well. Exam/Review of Systems Vital Signs Vitals Vital Signs Date Time Temp Pulse Resp B/P Pulse Ox O2 Delivery O2 Flow Rate FiO2 10/16/16 10:56 86 18 95 Nasal Cannula 2.0 10/16/16 08:03 98.6 93/60 Intake and Output 10/15/16 10/15/16 10/16/16 15:00 23:00 07:00 Intake Total 2220 ml 1450 ml Output Total 995 ml 1100 ml Balance 1225 ml 350 ml Exam Constitutional: alert, oriented Psych: no complaints Head: atraumatic, normocephalic Eyes: nl conjunctiva ENMT: nl external ears & nose Neck: non-tender, supple Respiratory: clear to auscultation, normal air movement Cardiovascular: nl pulses, regular rate and rhythm Gastrointestinal: non-tender, other (G-tube), soft Musculoskeletal: nl extremities to inspection Extremities: normal pulses Neurological: [employer] II-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 Results Result Diagram: 10/16/16 0520 10/16/16 0520 Results 24 hrs Laboratory Tests Test 10/16/16 05:20 10/16/16 09:30 White Blood Count 14.5 H Red Blood Count 3.77 L Hemoglobin 9.7 L Hematocrit 32.0 L Mean Corpuscular Volume 84.9 Mean Corpuscular Hemoglobin 25.7 L Mean Corpuscular Hemoglobin Concent 30.3 L Red Cell Distribution Width 17.5 H Platelet Count 378 Mean Platelet Volume 8.6 Neutrophils % 71.2 Lymphocytes % 12.7 L Monocytes % 12.2 H Eosinophils % 2.5 Basophils % 0.6 Nucleated Red Blood Cells % 0.0 Neutrophils # 10.3 H Lymphocytes # 1.8 Monocytes # 1.8 H Eosinophils # 0.4 Basophils # 0.1 Nucleated Red Blood Cells # 0.0 Sodium Level 129 L Potassium Level 3.7 Chloride Level 88 L Carbon Dioxide Level 33 H Anion Gap 12 Blood Urea Nitrogen 13 Creatinine 0.40 L Glucose Level 124 Calcium Level 8.1 L Lab Scanned Report REFERENCE LAB Medications Medications Current Medications Ondansetron HCl (Zofran Inj) 4 mg Q6 PRN IV NAUSEA AND/OR VOMITING; Start 09/26 at 22:30 Acetaminophen (Tylenol Tab) 650 mg Q6H PRN PO PAIN AND OR ELEVATED TEMP Last administered on 10/16/16 08:57; Admin Dose 650 MG; Start 09/26/16 at 23:00 Alprazolam (Xanax) 0.5 mg Q12 PRN PO ANXIETY Last administered on 10/04/16 20: 29; Admin Dose 0.5 MG; Start 09/26/16 at 23:00 Ascorbic Acid (Vitamin C) 500 mg BID PO Last administered on 10/16/16 08:58; Admin Dose 500 MG; Start 09/27/16 at 09:00 Atorvastatin Calcium (Lipitor) 20 mg QHS PO Last administered on 10/15/16 22: 00; Admin Dose 20 MG; Start 09/27/16 at 21:00 Diazepam (Valium) 10 mg DAILY PO Last administered on 10/15/16 08:51; Admin Dose 10 MG; Start 09/27/16 at 09:00 Docusate Sodium (Colace) 100 mg Q12H PRN PO CONSTIPATION; Start 09/26/16 at 23: 00 Duloxetine HCl (Cymbalta) 20 mg DAILY PO Last administered on 10/16/16 08:58; Admin Dose 20 MG; Start 09/27/16 at 09:00 Gabapentin (Neurontin) 300 mg TID PO Last administered on 10/16/16 11:40; Admin Dose 300 MG; Start 09/27/16 at 09:00 Zolpidem Tartrate (Ambien) 5 mg QHS PRN PO INSOMNIA Last administered on 02:35; Admin Dose 5 MG; Start 09/26/16 at 23:00 Collagenase (Santyl) 1 applic DAILY TOP Last administered on 10/16/16 09:02; Admin Dose 1 APPLIC; Start 09/27/16 at 09:00 Collagenase (Santyl) 1 applic PRN PRN TOP SOILED OR DISLODGED DRESSING; Start 09/27/16 at 05:00 Lansoprazole (Prevacid) 30 mg DAILY@06 GTB Last administered on 10/16/16 06:02 ; Admin Dose 30 MG; Start 09/28/16 at 06:00 Mupirocin (Bactroban) 1 applic BID TOP Last administered on 10/16/16 09:02; Admin Dose 1 APPLIC; Start 09/28/16 at 21:00 Cromolyn Sodium (Nasalcrom) 1 spray QID NASAL Last administered on 10/16/16 11: 41; Admin Dose 1 SPRAY; Start 09/29/16 at 11:02 Linezolid (Zyvox) 600 mg BID PO Last administered on 10/16/16 08:58; Admin Dose 600 MG; Start 09/29/16 at 21:00 Amikacin Sulfate (Amikacin Iv Per Pharmacy) AMIKACIN PER PHARMACY NOTE XX ; Start 09/29/16 at 15:30 Phenol (Cepastat Lozenge) 1 lozenge Q2H PRN MT SORE THROAT Last administered on 10/02/16 12:48; Admin Dose 1 LOZENGE; Start 10/01/16 at 19:00 IV Flush (NS 10 ml) 10 ml PRN PRN IV IV PROTOCOL; Start 10/02/16 at 19:00 Lactobacillus Acidophilus (Florajen3 Capsule) 1 each TID PO Last administered on 10/16/16 11:38; Admin Dose 1 EACH; Start 10/03/16 at 21:00 Hydromorphone HCl (Dilaudid) 0.5 mg Q4H PRN IV PAIN Last administered on 14:12; Admin Dose 0.5 MG; Start 10/06/16 at 18:30 Promethazine HCl/ Codeine (Phenergan/ Codeine) 10 ml BID PRN PO COUGH; Start at 20:30 Morphine Sulfate 60 mg 60 mg Q6 PO Last administered on 10/16/16 11:40; Admin Dose 60 MG; Start 10/09/16 at 12:00 Metronidazole 250 mg/N/A 50 ml @ 50 mls/hr Q8 IVPB Last administered on 14:26; Admin Dose 50 MLS/HR; Start 10/10/16 at 22:00 Amikacin Sulfate/ Dextrose (Amikacin/D5W) 102.8 ml @ 102.8 mls/ hr Q36H IVPB Last administered on 10/16/16 09:10; Admin Dose 102.8 MLS/HR; Start 10/14/16 at 21:00 REBECCA ISLAS October 16, 2016 15:32
--- NOTE | 2016-10-16 16:16 | CONS ---
Date/Time of Note Date/Time of Note DATE: 10/16/16 TIME: 16:14 Assessment/Plan Assessment/Plan Additional Assessment/Plan SIRS Intermittent hypotension Diastolic congestive heart failure, compensated Pulmonary hypertension Preserved ejection fraction Tricuspid valve regurgitation Lung cancer -Blood pressure trend remains stable, would continue to hold any antihypertensives at the current time. No new cardiac orders at the current time Consultation Date/Type/Reason Admit Date/Time Sep 26, 2016 at 20:07 Type of Consultation: cv Referring Provider: DRE LOBATO MD 24 HR Interval Summary Free Text/Dictation Denies shortness of breath, dizziness Exam/Review of Systems Vital Signs Vitals Vital Signs Date Time Temp Pulse Resp B/P Pulse Ox O2 Delivery O2 Flow Rate FiO2 10/16/16 10:56 86 18 95 Nasal Cannula 2.0 10/16/16 08:03 98.6 93/60 Intake and Output 10/15/16 10/15/16 10/16/16 15:00 23:00 07:00 Intake Total 2220 ml 1450 ml Output Total 995 ml 1100 ml Balance 1225 ml 350 ml Exam No apparent distress, following commands Constitutional: alert, frail Head: normocephalic Respiratory: other (Coarse breath sounds bilaterally, no wheezing) Cardiovascular: other (S1-S2 heard), regular rate and rhythm Gastrointestinal: bowel sounds, non-tender, soft Extremities: other (No edema) Results Result Diagram: 10/16/16 0520 10/16/16 0520 Results 24 hrs Laboratory Tests Test 10/16/16 05:20 10/16/16 09:30 White Blood Count 14.5 H Red Blood Count 3.77 L Hemoglobin 9.7 L Hematocrit 32.0 L Mean Corpuscular Volume 84.9 Mean Corpuscular Hemoglobin 25.7 L Mean Corpuscular Hemoglobin Concent 30.3 L Red Cell Distribution Width 17.5 H Platelet Count 378 Mean Platelet Volume 8.6 Neutrophils % 71.2 Lymphocytes % 12.7 L Monocytes % 12.2 H Eosinophils % 2.5 Basophils % 0.6 Nucleated Red Blood Cells % 0.0 Neutrophils # 10.3 H Lymphocytes # 1.8 Monocytes # 1.8 H Eosinophils # 0.4 Basophils # 0.1 Nucleated Red Blood Cells # 0.0 Sodium Level 129 L Potassium Level 3.7 Chloride Level 88 L Carbon Dioxide Level 33 H Anion Gap 12 Blood Urea Nitrogen 13 Creatinine 0.40 L Glucose Level 124 Calcium Level 8.1 L Lab Scanned Report REFERENCE LAB Medications Medications Current Medications Ondansetron HCl (Zofran Inj) 4 mg Q6 PRN IV NAUSEA AND/OR VOMITING; Start 09/26 at 22:30 Acetaminophen (Tylenol Tab) 650 mg Q6H PRN PO PAIN AND OR ELEVATED TEMP Last administered on 10/16/16 08:57; Admin Dose 650 MG; Start 09/26/16 at 23:00 Alprazolam (Xanax) 0.5 mg Q12 PRN PO ANXIETY Last administered on 10/04/16 20: 29; Admin Dose 0.5 MG; Start 09/26/16 at 23:00 Ascorbic Acid (Vitamin C) 500 mg BID PO Last administered on 10/16/16 08:58; Admin Dose 500 MG; Start 09/27/16 at 09:00 Atorvastatin Calcium (Lipitor) 20 mg QHS PO Last administered on 10/15/16 22: 00; Admin Dose 20 MG; Start 09/27/16 at 21:00 Diazepam (Valium) 10 mg DAILY PO Last administered on 10/15/16 08:51; Admin Dose 10 MG; Start 09/27/16 at 09:00 Docusate Sodium (Colace) 100 mg Q12H PRN PO CONSTIPATION; Start 09/26/16 at 23: 00 Duloxetine HCl (Cymbalta) 20 mg DAILY PO Last administered on 10/16/16 08:58; Admin Dose 20 MG; Start 09/27/16 at 09:00 Gabapentin (Neurontin) 300 mg TID PO Last administered on 10/16/16 11:40; Admin Dose 300 MG; Start 09/27/16 at 09:00 Zolpidem Tartrate (Ambien) 5 mg QHS PRN PO INSOMNIA Last administered on 02:35; Admin Dose 5 MG; Start 09/26/16 at 23:00 Collagenase (Santyl) 1 applic DAILY TOP Last administered on 10/16/16 09:02; Admin Dose 1 APPLIC; Start 09/27/16 at 09:00 Collagenase (Santyl) 1 applic PRN PRN TOP SOILED OR DISLODGED DRESSING; Start 09/27/16 at 05:00 Lansoprazole (Prevacid) 30 mg DAILY@06 GTB Last administered on 10/16/16 06:02 ; Admin Dose 30 MG; Start 09/28/16 at 06:00 Mupirocin (Bactroban) 1 applic BID TOP Last administered on 10/16/16 09:02; Admin Dose 1 APPLIC; Start 09/28/16 at 21:00 Cromolyn Sodium (Nasalcrom) 1 spray QID NASAL Last administered on 10/16/16 11: 41; Admin Dose 1 SPRAY; Start 09/29/16 at 11:02 Linezolid (Zyvox) 600 mg BID PO Last administered on 10/16/16 08:58; Admin Dose 600 MG; Start 09/29/16 at 21:00 Amikacin Sulfate (Amikacin Iv Per Pharmacy) AMIKACIN PER PHARMACY NOTE XX ; Start 09/29/16 at 15:30 Phenol (Cepastat Lozenge) 1 lozenge Q2H PRN MT SORE THROAT Last administered on 10/02/16 12:48; Admin Dose 1 LOZENGE; Start 10/01/16 at 19:00 IV Flush (NS 10 ml) 10 ml PRN PRN IV IV PROTOCOL; Start 10/02/16 at 19:00 Lactobacillus Acidophilus (Florajen3 Capsule) 1 each TID PO Last administered on 10/16/16 11:38; Admin Dose 1 EACH; Start 10/03/16 at 21:00 Hydromorphone HCl (Dilaudid) 0.5 mg Q4H PRN IV PAIN Last administered on 14:12; Admin Dose 0.5 MG; Start 10/06/16 at 18:30 Promethazine HCl/ Codeine (Phenergan/ Codeine) 10 ml BID PRN PO COUGH; Start at 20:30 Morphine Sulfate 60 mg 60 mg Q6 PO Last administered on 10/16/16 11:40; Admin Dose 60 MG; Start 10/09/16 at 12:00 Metronidazole 250 mg/N/A 50 ml @ 50 mls/hr Q8 IVPB Last administered on 14:26; Admin Dose 50 MLS/HR; Start 10/10/16 at 22:00 Amikacin Sulfate/ Dextrose (Amikacin/D5W) 102.8 ml @ 102.8 mls/ hr Q36H IVPB Last administered on 10/16/16t 09:10; Admin Dose 102.8 MLS/HR; Start 10/14/16 at 21:00 Artemio Tipton DO October 16, 2016 16:15
--- NOTE | 2016-10-16 16:17 | CONS ---
Date/Time of Note Date/Time of Note DATE: 10/16/16 TIME: 16:11 Assessment/Plan Assessment/Plan Additional Assessment/Plan 1. Hyponatremia, likely secondary to hypovolemic hyponatremia. 2. Status post acute kidney injury on chronic kidney disease due to systemic inflammatory response syndrome. 3. Systemic inflammatory response syndrome. 4. History of recurrent polymicrobial urinary tract infections. 5. History of dementia. 6. History of previous cerebrovascular accident. 7. History of chronic obstructive pulmonary disease, recently had acute respiratory failure secondary to chronic obstructive pulmonary disease exacerbation. 8. History of urinary retention with a chronic George catheter in place. 9. Chronic debility with cachexia. 10. Multiple decubitus ulcers with a history of debridement. 11. History of degenerative joint disease of spine. 12. History of hypertension and hypertensive heart disease with mild to moderate concentric left ventricular hypertrophy and echocardiogram with diastolic dysfunction stage I. PLAN: Na 129, pt likey has Component of SAIDH causing hypoantreia, due to acute on chronic pain start Na Chloride tablet 1 gram PO TID will follow up Consultation Date/Type/Reason Admit Date/Time Sep 26, 2016 at 20:07 Initial Consult Date September Type of Consultation: NEPHROLOGY Reason for Consultation Hyponatremia Referring Provider: DRE LOBATO MD 24 HR Interval Summary Free Text/Dictation Na dropped to 129, Bp stable, no SOb, Exam/Review of Systems Vital Signs Vitals Vital Signs Date Time Temp Pulse Resp B/P Pulse Ox O2 Delivery O2 Flow Rate FiO2 10/16/16 10:56 86 18 95 Nasal Cannula 2.0 10/16/16 08:03 98.6 93/60 Intake and Output 10/15/16 10/15/16 10/16/16 15:00 23:00 07:00 Intake Total 2220 ml 1450 ml Output Total 995 ml 1100 ml Balance 1225 ml 350 ml Exam GENERAL: This is a chronically ill-appearing, frail 66 yo F HEENT: Unremarkable -- NECK: Supple, trachea midline. CHEST: Rise symmetrical without dyspnea ABDOMEN: Refuses exam EXTREMITIES: Moves all extremities, Without cyanosis. Results Result Diagram: 10/16/16 0520 10/16/16 0520 Results 24 hrs Laboratory Tests Test 10/16/16 05:20 10/16/16 09:30 White Blood Count 14.5 H Red Blood Count 3.77 L Hemoglobin 9.7 L Hematocrit 32.0 L Mean Corpuscular Volume 84.9 Mean Corpuscular Hemoglobin 25.7 L Mean Corpuscular Hemoglobin Concent 30.3 L Red Cell Distribution Width 17.5 H Platelet Count 378 Mean Platelet Volume 8.6 Neutrophils % 71.2 Lymphocytes % 12.7 L Monocytes % 12.2 H Eosinophils % 2.5 Basophils % 0.6 Nucleated Red Blood Cells % 0.0 Neutrophils # 10.3 H Lymphocytes # 1.8 Monocytes # 1.8 H Eosinophils # 0.4 Basophils # 0.1 Nucleated Red Blood Cells # 0.0 Sodium Level 129 L Potassium Level 3.7 Chloride Level 88 L Carbon Dioxide Level 33 H Anion Gap 12 Blood Urea Nitrogen 13 Creatinine 0.40 L Glucose Level 124 Calcium Level 8.1 L Lab Scanned Report REFERENCE LAB Medications Medications Current Medications Ondansetron HCl (Zofran Inj) 4 mg Q6 PRN IV NAUSEA AND/OR VOMITING; Start 09/26 at 22:30 Acetaminophen (Tylenol Tab) 650 mg Q6H PRN PO PAIN AND OR ELEVATED TEMP Last administered on 10/16/16 08:57; Admin Dose 650 MG; Start 09/26/16 at 23:00 Alprazolam (Xanax) 0.5 mg Q12 PRN PO ANXIETY Last administered on 10/04/16 20: 29; Admin Dose 0.5 MG; Start 09/26/16 at 23:00 Ascorbic Acid (Vitamin C) 500 mg BID PO Last administered on 10/16/16 08:58; Admin Dose 500 MG; Start 09/27/16 at 09:00 Atorvastatin Calcium (Lipitor) 20 mg QHS PO Last administered on 10/15/16 22: 00; Admin Dose 20 MG; Start 09/27/16 at 21:00 Diazepam (Valium) 10 mg DAILY PO Last administered on 10/15/16 08:51; Admin Dose 10 MG; Start 09/27/16 at 09:00 Docusate Sodium (Colace) 100 mg Q12H PRN PO CONSTIPATION; Start 09/26/16 at 23: 00 Duloxetine HCl (Cymbalta) 20 mg DAILY PO Last administered on 10/16/16 08:58; Admin Dose 20 MG; Start 09/27/16 at 09:00 Gabapentin (Neurontin) 300 mg TID PO Last administered on 10/16/16 11:40; Admin Dose 300 MG; Start 09/27/16 at 09:00 Zolpidem Tartrate (Ambien) 5 mg QHS PRN PO INSOMNIA Last administered on 02:35; Admin Dose 5 MG; Start 09/26/16 at 23:00 Collagenase (Santyl) 1 applic DAILY TOP Last administered on 10/16/16 09:02; Admin Dose 1 APPLIC; Start 09/27/16 at 09:00 Collagenase (Santyl) 1 applic PRN PRN TOP SOILED OR DISLODGED DRESSING; Start 09/27/16 at 05:00 Lansoprazole (Prevacid) 30 mg DAILY@06 GTB Last administered on 10/16/16 06:02 ; Admin Dose 30 MG; Start 09/28/16 at 06:00 Mupirocin (Bactroban) 1 applic BID TOP Last administered on 10/16/16 09:02; Admin Dose 1 APPLIC; Start 09/28/16 at 21:00 Cromolyn Sodium (Nasalcrom) 1 spray QID NASAL Last administered on 10/16/16 11: 41; Admin Dose 1 SPRAY; Start 09/29/16 at 11:02 Linezolid (Zyvox) 600 mg BID PO Last administered on 10/16/16 08:58; Admin Dose 600 MG; Start 09/29/16 at 21:00 Amikacin Sulfate (Amikacin Iv Per Pharmacy) AMIKACIN PER PHARMACY NOTE XX ; Start 09/29/16 at 15:30 Phenol (Cepastat Lozenge) 1 lozenge Q2H PRN MT SORE THROAT Last administered on 10/02/16 12:48; Admin Dose 1 LOZENGE; Start 10/01/16 at 19:00 IV Flush (NS 10 ml) 10 ml PRN PRN IV IV PROTOCOL; Start 10/02/16 at 19:00 Lactobacillus Acidophilus (Florajen3 Capsule) 1 each TID PO Last administered on 10/16/16 11:38; Admin Dose 1 EACH; Start 10/03/16 at 21:00 Hydromorphone HCl (Dilaudid) 0.5 mg Q4H PRN IV PAIN Last administered on 14:12; Admin Dose 0.5 MG; Start 10/06/16 at 18:30 Promethazine HCl/ Codeine (Phenergan/ Codeine) 10 ml BID PRN PO COUGH; Start at 20:30 Morphine Sulfate 60 mg 60 mg Q6 PO Last administered on 10/16/16 11:40; Admin Dose 60 MG; Start 10/09/16 at 12:00 Metronidazole 250 mg/N/A 50 ml @ 50 mls/hr Q8 IVPB Last administered on 14:26; Admin Dose 50 MLS/HR; Start 10/10/16 at 22:00 Amikacin Sulfate/ Dextrose (Amikacin/D5W) 102.8 ml @ 102.8 mls/ hr Q36H IVPB Last administered on 10/16/16 09:10; Admin Dose 102.8 MLS/HR; Start 10/14/16 at 21:00 DIONNE SAUCEDA MD October 16, 2016 16:17
--- NOTE | 2016-10-16 16:20 | PN ---
DATE: 10/16/2016 SUBJECTIVE: No acute changes. The patient is awake, feels good, looks comfortable. Denies pain, d iscomfort. LABS: WBC 14.5, platelets . No shift, no bands. BUN 13, creatinine 0.40. INDWELLINGS: PEG, George and PICC line placed on October 02, 2016. PHYSICAL EXAMINATION: GENERAL: This is a chronically ill-appearing, fragile, cachectic, elderly woman who is alert, in no distress. HEENT: Atraumatic, normocephalic. Sclerae anicteric. Buccal mucosa dry. NECK: Supple, trachea midline. CHEST: Rise symmetrical. Breath sounds diminished to bases. HEART: S1, S2. ABDOMEN: Soft, bowel tones present. EXTREMITIES: Without cyanosis. ASSESSMENT: 1. Status-post sepsis. 2. Unstageable sacral decubitus, status-post debridement with wound VAC application. 3. Status-post urinary tract infection and pneumonia. 4. Lung cancer. 5. Cachexia. PLAN: The patient remains stable. She is on amikacin, Zyvox, and Flagyl for anaerobic coverage of her wounds. Continue present care, local wound care and aspiration precautions. Dictated By: RUBIN MAYEN RIPRAP WORKER for [employer] Conf#: [id number] DID#: [id number]
[2016-10-16] MEDS ORDERED: SODIUM CHLORIDE 1 GM TAB PO ONE (16:30)
[2016-10-16] MEDS: SODIUM CHLORIDE 1 GM TAB PO SCH ×2 (17:48→20:34)
[2016-10-16 19:38] VITALS: BP 105/72; RESP 20
[2016-10-16] MEDS: ATORVASTATIN 20 MG TAB PO SCH (20:33)
[2016-10-17] MEDS: morphine (ER) 30 MG TAB PO SCH ×5 (01:14→23:55)
[2016-10-17] MEDS: HYDROmorphONE 1 MG/ML SYG IV PRN ×4 (04:03→22:08)
[2016-10-17] MEDS: LANSOPRAZOLE 30 MG CAP GTB SCH (05:03)
[2016-10-17] MEDS: LEVOTHYROXINE 125 MCG TAB PO SCH (05:03)
[2016-10-17] MEDS: metroNIDAZOLE 500 MG/NS (PMX) 250 MG in EVAC CONTAINER 1 BOTTLE IVPB SCH ×3 (05:04→23:50)
[2016-10-17 05:38] LABS: ADD SCAN DIFF NO
[2016-10-17 05:54] LABS: ABNORMAL IP MESSAGE 1; BASOPHIL # 0.1 10^3/ul (0.0-0.1); BASOPHILS % 0.6 % (0.0-2.0); EOSINOPHILS # 0.6 10^3/ul (0.0-0.5); EOSINOPHILS % 3.6 % (0.0-7.0); HEMATOCRIT 29.9 % (37.0-47.0); LYMPHOCYTES % 12.3 % (15.0-51.0); MEAN CORPUSCULAR HEMOGLOBIN 25.6 pg (29.0-33.0); MEAN CORPUSCULAR HGB CONC 30.1 g/dl (32.0-37.0); MEAN CORPUSCULAR VOLUME 85.2 fl (82.0-101.0); MEAN PLATELET VOLUME 8.5 fl (7.4-10.4); MONOCYTE # 2.1 10^3/ul (0.3-0.9); MONOCYTES % 13.3 % (0.0-11.0); NEUTROPHIL # 11.2 10^3/ul (1.6-7.5); NEUTROPHILS % 69.8 % (39.0-77.0); PLATELET COUNT 338 10^3/UL (140-415); RED BLOOD COUNT 3.51 10^6/ul (4.20-5.40); RED CELL DISTRIBUTION WIDTH 17.6 % (11.5-14.5); WHITE BLOOD COUNT 16.1 10^3/ul (4.8-10.8)
[2016-10-17 06:37] LABS: POTASSIUM 3.7 mmol/L (3.5-5.1)
[2016-10-17 06:39] LABS: CREATININE 0.43 mg/dl (0.44-1.00)
[2016-10-17 06:40] LABS: CALCIUM 8.1 mg/dl (8.4-10.2)
[2016-10-17 07:59] VITALS: BP 98/72; RESP 16
[2016-10-17] MEDS: ZYVOX 600 MG TAB PO SCH ×2 (08:25→21:56)
[2016-10-17] MEDS: ASCORBIC ACID 500 MG TAB PO SCH ×2 (08:25→21:56)
[2016-10-17] MEDS: GABAPENTIN 300 MG CAP PO SCH ×3 (08:25→21:56)
[2016-10-17] MEDS: DULOXETINE 20 MG CAP DR PO SCH (08:25)
[2016-10-17] MEDS: DIAZEPAM 5 MG TAB PO SCH (08:26)
[2016-10-17] MEDS: L ACIDOPHIL/B LACTIS/B LONGUM CAPSULE PO SCH ×3 (08:26→21:56)
[2016-10-17] MEDS: MUPIROCIN 2% 22 GM OINT TOP SCH ×2 (08:27→22:11)
[2016-10-17] MEDS: CROMOLYN 4% 26ML NAS INH NASAL SCH ×4 (08:27→22:11)
[2016-10-17] MEDS: COLLAGENASE 30 GM TUBE TOP SCH (08:27)
[2016-10-17] MEDS ORDERED: SOD CHLORIDE 0.9% 1,000 ML IV SCH (11:30)
[2016-10-17] MEDS: SODIUM CHLORIDE 1 GM TAB PO SCH ×3 (12:16→21:56)
--- NOTE | 2016-10-17 13:08 | PN ---
DATE: SUBJECTIVE: No events overnight. No fevers. No vomiting or diarrhea. Patient is lying comfortabl y in bed. WBC today 16.1, platelets 338, no shift, no bands. BUN 14, creatinine 0.43. INDWELLINGS: The patient has George catheter, PEG and PICC line placed on 10/02/2016. ANTIMICROBIALS: 1. Amikacin. 2. Flagyl. 3. Zyvox. PHYSICAL EXAMINATION: GENERAL: Cachectic fragile, elderly woman who is in no distress. HEENT: Head atraumatic, normocephalic. Sclerae anicteric. Buccal mucosa dry. NECK: Supple. CHEST: Rise symmetrical. Breath sounds diminished to bases. HEART: S1, S2. ABDOMEN: Soft, bowel tones present. EXTREMITIES: Without cyanosis or edema. ASSESSMENT: 1. Systemic inflammatory response syndrome with persistent leukocytosis, likely combination of infe ctious and also possibly secondary to underlying malignancy. 2. Sacral decubitus with exposed bone, status post debridement with wound VAC application and cultu res growing multi-drug resistant organisms. 3. History of Clostridium difficile colitis. 4. Status post pneumonia. 5. Cachexia. 6. Dysphagia. 7. Status post urinary tract infection. PLAN: The patient remains clinically and hemodynamically stable. We are going to repeat urine cult ure and chest x-ray given increased leukocytosis. Continue her on current antimicrobials. Continu e anti-aspiration measures and local wound care as per surgical recommendations. Dictated By: RUBIN MAYEN BLACKTOP PAVER OPERATOR for [employer] Conf#: [id number] DID#: [id number]
[2016-10-17] MEDS: FLUCONAZOLE 100 MG TAB PO SCH (13:47)
[2016-10-17] MEDS ORDERED: HYDROmorphONE 1 MG/ML SYG IV STA (16:48)
--- NOTE | 2016-10-17 18:00 | PN ---
Date/Time of Note Date/Time of Note DATE: 10/17/16 TIME: 17:59 Assessment/Plan VTE Prophylaxis VTE Prophylaxis Intervention: SCD's Lines/Catheters IV [facility]ter [facility]from [facility] PICC Line Central line still needed: Yes Urinary Cath still in place: Yes Reason Cath still needed: urinary retention Assessment/Plan Chief Complaint/Hosp Course ASSESSMENT AND PLAN: - Recurrent sepsis, resolving. Dr. Coleman is following in infection disease consultation. Continue antibiotics per ID. - Polymicrobial urinary tract infection, s/p treatment. - Left lung squamous cell carcinoma. Patient is not a candidate for chemotherapy. - Chronic obstructive pulmonary disease. Continue breathing treatment. - Multiple decubitus ulcers with history of debridement. Continue current wound care. Wound culture is growing polymicrobial organisms. Continue antibiotics per ID. - Methicillin-resistant Staphylococcus aureus nares colonization. - Cachexia. Optimize nutrition. - Dysphagia with G-tube placement. Continue G-tube feeding. Aspiration precaution. - Chronic urinary retention. Continue George catheter. - Hypothyroidism. TSH is within normal limits. Continue Synthroid. - Anemia of chronic disease. Undergoing blood transfusion. - Hyponatremia, Dr. Zapata is following in nephrology consultation. - Right hand swelling, resolving. CT scan of the right hand is negative. Further recommendations based on clinical course. Plan of care discussed with Dr. Dozier. Problems: Subjective 24 Hr Interval Summary Free Text/Dictation Patient remains afebrile, tolerates G-tube feeding well, borderline hypotension. Exam/Review of Systems Vital Signs Vitals Vital Signs Date Time Temp Pulse Resp B/P Pulse Ox O2 Delivery O2 Flow Rate FiO2 10/17/16 09:43 Nasal Cannula 2.0 10/17/16 07:59 97.4 91 16 98/72 97 Intake and Output 10/16/16 10/16/16 10/17/16 14:59 22:59 06:59 Intake Total 152.8 ml 970 ml 1450 ml Output Total 700 ml 1100 ml Balance 152.8 ml 270 ml 350 ml Exam Constitutional: alert, oriented Psych: no complaints Head: atraumatic, normocephalic Eyes: nl conjunctiva ENMT: nl external ears & nose Neck: non-tender, supple Respiratory: clear to auscultation, normal air movement Cardiovascular: nl pulses, regular rate and rhythm Gastrointestinal: non-tender, other (G-tube), soft Musculoskeletal: nl extremities to inspection Extremities: normal pulses Neurological: MEDICAL DOCTOR MD II-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 Results Result Diagram: 10/17/1615 10/17/16 0515 Results 24 hrs Laboratory Tests Test 10/17/16 05:15 White Blood Count 16.1 H Red Blood Count 3.51 L Hemoglobin 9.0 L Hematocrit 29.9 L Mean Corpuscular Volume 85.2 Mean Corpuscular Hemoglobin 25.6 L Mean Corpuscular Hemoglobin Concent 30.1 L Red Cell Distribution Width 17.6 H Platelet Count 338 Mean Platelet Volume 8.5 Neutrophils % 69.8 Lymphocytes % 12.3 L Monocytes % 13.3 H Eosinophils % 3.6 Basophils % 0.6 Nucleated Red Blood Cells % 0.0 Neutrophils # 11.2 H Lymphocytes # 2.0 Monocytes # 2.1 H Eosinophils # 0.6 H Basophils # 0.1 Nucleated Red Blood Cells # 0.0 Sodium Level 129 L Potassium Level 3.7 Chloride Level 88 L Carbon Dioxide Level 32 H Anion Gap 13 Blood Urea Nitrogen 14 Creatinine 0.43 L Glucose Level 121 Calcium Level 8.1 L Medications Medications Current Medications Ondansetron HCl (Zofran Inj) 4 mg Q6 PRN IV NAUSEA AND/OR VOMITING; Start 09/26 at 22:30 Acetaminophen (Tylenol Tab) 650 mg Q6H PRN PO PAIN AND OR ELEVATED TEMP Last administered on 10/16/16 08:57; Admin Dose 650 MG; Start 09/26/16 at 23:00 Alprazolam (Xanax) 0.5 mg Q12 PRN PO ANXIETY Last administered on 10/04/16 20: 29; Admin Dose 0.5 MG; Start 09/26/16 at 23:00 Ascorbic Acid (Vitamin C) 500 mg BID PO Last administered on 10/17/16 08:25; Admin Dose 500 MG; Start 09/27/16 at 09:00 Atorvastatin Calcium (Lipitor) 20 mg QHS PO Last administered on 10/16/16 20:33 ; Admin Dose 20 MG; Start 09/27/16 at 21:00 Diazepam (Valium) 10 mg DAILY PO Last administered on 10/17/16 08:26; Admin Dose 10 MG; Start 09/27/16 at 09:00 Docusate Sodium (Colace) 100 mg Q12H PRN PO CONSTIPATION; Start 09/26/16 at 23: 00 Duloxetine HCl (Cymbalta) 20 mg DAILY PO Last administered on 10/17/16 08:25; Admin Dose 20 MG; Start 09/27/16 at 09:00 Gabapentin (Neurontin) 300 mg TID PO Last administered on 10/17/16 12:16; Admin Dose 300 MG; Start 09/27/16 at 09:00 Zolpidem Tartrate (Ambien) 5 mg QHS PRN PO INSOMNIA Last administered on 02:35; Admin Dose 5 MG; Start 09/26/16 at 23:00 Collagenase (Santyl) 1 applic DAILY TOP Last administered on 10/17/16 08:27; Admin Dose 1 APPLIC; Start 09/27/16 at 09:00 Collagenase (Santyl) 1 applic PRN PRN TOP SOILED OR DISLODGED DRESSING; Start 09/27/16 at 05:00 Lansoprazole (Prevacid) 30 mg DAILY@06 GTB Last administered on 10/17/16 05:03 ; Admin Dose 30 MG; Start 09/28/16 at 06:00 Mupirocin (Bactroban) 1 applic BID TOP Last administered on 10/17/16 08:27; Admin Dose 1 APPLIC; Start 09/28/16 at 21:00 Cromolyn Sodium (Nasalcrom) 1 spray QID NASAL Last administered on 10/17/16 12: 18; Admin Dose 1 SPRAY; Start 09/29/16 at 11:02 Linezolid (Zyvox) 600 mg BID PO Last administered on 10/17/16 08:25; Admin Dose 600 MG; Start 09/29/16 at 21:00 Amikacin Sulfate (Amikacin Iv Per Pharmacy) AMIKACIN PER PHARMACY NOTE XX ; Start 09/29/16 at 15:30 Phenol (Cepastat Lozenge) 1 lozenge Q2H PRN MT SORE THROAT Last administered on 10/02/16 12:48; Admin Dose 1 LOZENGE; Start 10/01/16 at 19:00 IV Flush (NS 10 ml) 10 ml PRN PRN IV IV PROTOCOL; Start 10/02/16 at 19:00 Lactobacillus Acidophilus (Florajen3 Capsule) 1 each TID PO Last administered on 10/17/16 12:16; Admin Dose 1 EACH; Start 10/03/16 at 21:00 Hydromorphone HCl (Dilaudid) 0.5 mg Q4H PRN IV PAIN Last administered on 15:35; Admin Dose 0.5 MG; Start 10/06/16 at 18:30 Promethazine HCl/ Codeine (Phenergan/ Codeine) 10 ml BID PRN PO COUGH; Start at 20:30 Morphine Sulfate 60 mg 60 mg Q6 PO Last administered on 10/17/16 12:18; Admin Dose 60 MG; Start 10/09/16 at 12:00 Metronidazole 250 mg/N/A 50 ml @ 50 mls/hr Q8 IVPB Last administered on 13:48; Admin Dose 50 MLS/HR; Start 10/10/16 at 22:00 Amikacin Sulfate/ Dextrose (Amikacin/D5W) 102.8 ml @ 102.8 mls/ hr Q36H IVPB Last administered on 10/16/16 09:10; Admin Dose 102.8 MLS/HR; Start 10/14/16 at 21:00 Sodium Chloride 1 gm 1 gm TID PO Last administered on 10/17/16 13:47; Admin Dose 1 GM; Start 10/16/16 at 17:00 Sodium Chloride (NS) 1,000 ml @ 50 mls/hr Q20H IV Last administered on 13:47; Admin Dose 50 MLS/HR; Start 10/17/16 at 11:30; Stop 10/18/16 at 07:29 Fluconazole (Diflucan) 100 mg DAILY PO Last administered on 10/17/16 13:47; Admin Dose 100 MG; Start 10/17/16 at 13:00 REBECCA ISLAS October 17, 2016 18:00
--- NOTE | 2016-10-17 19:04 | CONS ---
Date/Time of Note Date/Time of Note DATE: 10/17/16 TIME: 19:03 Assessment/Plan Assessment/Plan Additional Assessment/Plan 1. Hyponatremia, likely secondary to hypovolemic hyponatremia. 2. Status post acute kidney injury on chronic kidney disease due to systemic inflammatory response syndrome. 3. Systemic inflammatory response syndrome. 4. History of recurrent polymicrobial urinary tract infections. 5. History of dementia. 6. History of previous cerebrovascular accident. 7. History of chronic obstructive pulmonary disease, recently had acute respiratory failure secondary to chronic obstructive pulmonary disease exacerbation. 8. History of urinary retention with a chronic George catheter in place. 9. Chronic debility with cachexia. 10. Multiple decubitus ulcers with a history of debridement. 11. History of degenerative joint disease of spine. 12. History of hypertension and hypertensive heart disease with mild to moderate concentric left ventricular hypertrophy and echocardiogram with diastolic dysfunction stage I. PLAN: Na 129, pt likey has Component of SAIDH causing hypoantreia, due to acute on chronic pain continue Na Chloride tablet 1 gram PO TID will follow up Consultation Date/Type/Reason Admit Date/Time Sep 26, 2016 at 20:07 Initial Consult Date September Type of Consultation: NEPHROLOGY Referring Provider: DRE LOBATO MD 24 HR Interval Summary Free Text/Dictation Na 129, Bp stable Exam/Review of Systems Vital Signs Vitals Vital Signs Date Time Temp Pulse Resp B/P Pulse Ox O2 Delivery O2 Flow Rate FiO2 10/17/16 09:43 Nasal Cannula 2.0 10/17/16 07:59 97.4 91 16 98/72 97 Intake and Output 10/16/16 10/16/16 10/17/16 15:00 23:00 07:00 Intake Total 152.8 ml 970 ml 1450 ml Output Total 700 ml 1100 ml Balance 152.8 ml 270 ml 350 ml Exam GENERAL: This is a chronically ill-appearing, frail 66 yo F HEENT: Unremarkable -- NECK: Supple, trachea midline. CHEST: Rise symmetrical without dyspnea ABDOMEN: Refuses exam EXTREMITIES: Moves all extremities, Without cyanosis. Results Result Diagram: 10/17/16 0515 10/17/16 0515 Results 24 hrs Laboratory Tests Test 10/17/16 05:15 White Blood Count 16.1 H Red Blood Count 3.51 L Hemoglobin 9.0 L Hematocrit 29.9 L Mean Corpuscular Volume 85.2 Mean Corpuscular Hemoglobin 25.6 L Mean Corpuscular Hemoglobin Concent 30.1 L Red Cell Distribution Width 17.6 H Platelet Count 338 Mean Platelet Volume 8.5 Neutrophils % 69.8 Lymphocytes % 12.3 L Monocytes % 13.3 H Eosinophils % 3.6 Basophils % 0.6 Nucleated Red Blood Cells % 0.0 Neutrophils # 11.2 H Lymphocytes # 2.0 Monocytes # 2.1 H Eosinophils # 0.6 H Basophils # 0.1 Nucleated Red Blood Cells # 0.0 Sodium Level 129 L Potassium Level 3.7 Chloride Level 88 L Carbon Dioxide Level 32 H Anion Gap 13 Blood Urea Nitrogen 14 Creatinine 0.43 L Glucose Level 121 Calcium Level 8.1 L Medications Medications Current Medications Ondansetron HCl (Zofran Inj) 4 mg Q6 PRN IV NAUSEA AND/OR VOMITING; Start 09/26 at 22:30 Acetaminophen (Tylenol Tab) 650 mg Q6H PRN PO PAIN AND OR ELEVATED TEMP Last administered on 10/16/16 08:57; Admin Dose 650 MG; Start 09/26/16 at 23:00 Alprazolam (Xanax) 0.5 mg Q12 PRN PO ANXIETY Last administered on 10/04/16 20: 29; Admin Dose 0.5 MG; Start 09/26/16 at 23:00 Ascorbic Acid (Vitamin C) 500 mg BID PO Last administered on 10/17/16 08:25; Admin Dose 500 MG; Start 09/27/16 at 09:00 Atorvastatin Calcium (Lipitor) 20 mg QHS PO Last administered on 10/16/16 20:33 ; Admin Dose 20 MG; Start 09/27/16 at 21:00 Diazepam (Valium) 10 mg DAILY PO Last administered on 10/17/16 08:26; Admin Dose 10 MG; Start 09/27/16 at 09:00 Docusate Sodium (Colace) 100 mg Q12H PRN PO CONSTIPATION; Start 09/26/16 at 23: 00 Duloxetine HCl (Cymbalta) 20 mg DAILY PO Last administered on 10/17/16 08:25; Admin Dose 20 MG; Start 09/27/16 at 09:00 Gabapentin (Neurontin) 300 mg TID PO Last administered on 10/17/16 12:16; Admin Dose 300 MG; Start 09/27/16 at 09:00 Zolpidem Tartrate (Ambien) 5 mg QHS PRN PO INSOMNIA Last administered on 02:35; Admin Dose 5 MG; Start 09/26/16 at 23:00 Collagenase (Santyl) 1 applic DAILY TOP Last administered on 10/17/16 08:27; Admin Dose 1 APPLIC; Start 09/27/16 at 09:00 Collagenase (Santyl) 1 applic PRN PRN TOP SOILED OR DISLODGED DRESSING; Start 09/27/16 at 05:00 Lansoprazole (Prevacid) 30 mg DAILY@06 GTB Last administered on 10/17/16 05:03 ; Admin Dose 30 MG; Start 09/28/16 at 06:00 Mupirocin (Bactroban) 1 applic BID TOP Last administered on 10/17/16 08:27; Admin Dose 1 APPLIC; Start 09/28/16 at 21:00 Cromolyn Sodium (Nasalcrom) 1 spray QID NASAL Last administered on 10/17/16 18: 31; Admin Dose 1 SPRAY; Start 09/29/16 at 11:02 Linezolid (Zyvox) 600 mg BID PO Last administered on 10/17/16 08:25; Admin Dose 600 MG; Start 09/29/16 at 21:00 Amikacin Sulfate (Amikacin Iv Per Pharmacy) AMIKACIN PER PHARMACY NOTE XX ; Start 09/29/16 at 15:30 Phenol (Cepastat Lozenge) 1 lozenge Q2H PRN MT SORE THROAT Last administered on 10/02/16 12:48; Admin Dose 1 LOZENGE; Start 10/01/16 at 19:00 IV Flush (NS 10 ml) 10 ml PRN PRN IV IV PROTOCOL; Start 10/02/16 at 19:00 Lactobacillus Acidophilus (Florajen3 Capsule) 1 each TID PO Last administered on 10/17/16 12:16; Admin Dose 1 EACH; Start 10/03/16 at 21:00 Hydromorphone HCl (Dilaudid) 0.5 mg Q4H PRN IV PAIN Last administered on 15:35; Admin Dose 0.5 MG; Start 10/06/16 at 18:30 Promethazine HCl/ Codeine (Phenergan/ Codeine) 10 ml BID PRN PO COUGH; Start at 20:30 Morphine Sulfate 60 mg 60 mg Q6 PO Last administered on 10/17/16 12:18; Admin Dose 60 MG; Start 10/09/16 at 12:00 Metronidazole 250 mg/N/A 50 ml @ 50 mls/hr Q8 IVPB Last administered on 13:48; Admin Dose 50 MLS/HR; Start 10/10/16 at 22:00 Amikacin Sulfate/ Dextrose (Amikacin/D5W) 102.8 ml @ 102.8 mls/ hr Q36H IVPB Last administered on 10/16/16 09:10; Admin Dose 102.8 MLS/HR; Start 10/14/16 at 21:00 Sodium Chloride 1 gm 1 gm TID PO Last administered on 10/17/16 13:47; Admin Dose 1 GM; Start 10/16/16 at 17:00 Sodium Chloride (NS) 1,000 ml @ 50 mls/hr Q20H IV Last administered on 13:47; Admin Dose 50 MLS/HR; Start 10/17/16 at 11:30; Stop 10/18/16 at 07:29 Fluconazole (Diflucan) 100 mg DAILY PO Last administered on 10/17/16 13:47; Admin Dose 100 MG; Start 10/17/16 at 13:00 DIONNE SAUCEDA MD October 17, 2016 19:04
[2016-10-17 19:44] VITALS: BP 108/58; RESP 18
[2016-10-17] MEDS: ATORVASTATIN 20 MG TAB PO SCH (21:56)
[2016-10-17] MEDS: AMIKACIN 700 MG in DEXTROSE 5% 100 ML IVPB SCH (21:56)
[2016-10-18] MEDS: HYDROmorphONE 1 MG/ML SYG IV PRN ×4 (03:14→16:23)
[2016-10-18] MEDS: LANSOPRAZOLE 30 MG CAP GTB SCH (05:18)
[2016-10-18] MEDS: LEVOTHYROXINE 125 MCG TAB PO SCH (05:18)
[2016-10-18] MEDS: morphine (ER) 30 MG TAB PO SCH ×4 (05:18→23:27)
[2016-10-18] MEDS: metroNIDAZOLE 500 MG/NS (PMX) 250 MG in EVAC CONTAINER 1 BOTTLE IVPB SCH ×3 (05:18→23:27)
--- NOTE | 2016-10-18 05:36 | RADRPT ---
PROCEDURE: XR Chest. CLINICAL INDICATION: Cough TECHNIQUE: A single AP view of the chest was obtained. COMPARISON: Chest x-ray dated 10/12/2016 FINDINGS: There is a right upper extremity PICC line with tip near the junction the right brachiocephalic vein and SVC. The lungs are hyperinflated with coarsening of the interstitial markings. Again noted is a mass-lik e consolidation of the left lower lobe. No pleural effusion or pneumothorax is seen. The cardiomed iastinal silhouette is mildly enlarged. Calcifications are seen within the aortic arch. The osseou s structures demonstrate senescent changes. IMPRESSION: 1. Lingular/left lower lobe mass, not significantly changed from prior examination. 2. Chronic-appearing interstitial changes. 3. Mild cardiomegaly and aortic atherosclerosis. 4. Right upper extremity PICC line, the tip is not well visualized but appears to be near the junct ion of the right brachiocephalic vein and SVC. RPTAT: HH .Maisha Jean MD, MD Date Time Electronically viewed and signed by .Maisha Jean MD, on 10/18/2016 05:35 .G/
[2016-10-18 05:43] LABS: ADD SCAN DIFF NO
[2016-10-18 06:19] LABS: ABNORMAL IP MESSAGE 1; BASOPHIL # 0.1 10^3/ul (0.0-0.1); BASOPHILS % 0.7 % (0.0-2.0); EOSINOPHILS # 0.9 10^3/ul (0.0-0.5); EOSINOPHILS % 5.8 % (0.0-7.0); HEMATOCRIT 28.6 % (37.0-47.0); HEMOGLOBIN 8.6 g/dl (12.0-16.0); LYMPHOCYTES # 1.9 10^3/ul (0.8-2.9); LYMPHOCYTES % 12.2 % (15.0-51.0); MEAN CORPUSCULAR HEMOGLOBIN 25.7 pg (29.0-33.0); MEAN CORPUSCULAR HGB CONC 30.1 g/dl (32.0-37.0); MEAN CORPUSCULAR VOLUME 85.6 fl (82.0-101.0); MEAN PLATELET VOLUME 8.7 fl (7.4-10.4); MONOCYTE # 1.8 10^3/ul (0.3-0.9); MONOCYTES % 11.9 % (0.0-11.0); NEUTROPHIL # 10.4 10^3/ul (1.6-7.5); NEUTROPHILS % 68.7 % (39.0-77.0); PLATELET COUNT 342 10^3/UL (140-415); RED BLOOD COUNT 3.34 10^6/ul (4.20-5.40); RED CELL DISTRIBUTION WIDTH 17.7 % (11.5-14.5); WHITE BLOOD COUNT 15.2 10^3/ul (4.8-10.8)
[2016-10-18 06:25] LABS: POTASSIUM 3.4 mmol/L (3.5-5.1)
[2016-10-18 06:27] LABS: CREATININE 0.43 mg/dl (0.44-1.00)
[2016-10-18 06:28] LABS: CALCIUM 8.2 mg/dl (8.4-10.2)
[2016-10-18 07:50] VITALS: BP 104/66; RESP 18
[2016-10-18] MEDS: ZYVOX 600 MG TAB PO SCH ×2 (08:09→21:26)
[2016-10-18] MEDS: ASCORBIC ACID 500 MG TAB PO SCH ×2 (08:09→21:26)
[2016-10-18] MEDS: GABAPENTIN 300 MG CAP PO SCH ×3 (08:09→21:26)
[2016-10-18] MEDS: FLUCONAZOLE 100 MG TAB PO SCH (08:09)
[2016-10-18] MEDS: DULOXETINE 20 MG CAP DR PO SCH (08:09)
[2016-10-18] MEDS: DIAZEPAM 5 MG TAB PO SCH (08:09)
[2016-10-18] MEDS: SODIUM CHLORIDE 1 GM TAB PO SCH ×3 (08:09→21:26)
[2016-10-18] MEDS: COLLAGENASE 30 GM TUBE TOP SCH (08:11)
[2016-10-18] MEDS: MUPIROCIN 2% 22 GM OINT TOP SCH ×2 (08:11→21:27)
[2016-10-18] MEDS: CROMOLYN 4% 26ML NAS INH NASAL SCH ×4 (08:11→21:26)
[2016-10-18] MEDS: L ACIDOPHIL/B LACTIS/B LONGUM CAPSULE PO SCH ×3 (09:00→21:26)
--- NOTE | 2016-10-18 13:58 | PN ---
DATE: 10/18/2016 SUBJECTIVE: No events overnight. The patient is alert, asking for food. Looks comfortable, no fe vers. LABORATORY DATA: WBC 15.2, platelets 342, no shift, no bands. BUN 15, creatinine 0.43. ANTIMICROBIALS: 1. Amikacin. 2. Fluconazole. 3. Flagyl. 4. Zyvox. 5. Topical Bactroban to nares. INDWELLINGS: PEG, George, PICC line. PHYSICAL EXAMINATION: GENERAL: A cachectic elderly woman who is awake, in no distress. HEENT: Head atraumatic, normocephalic. Sclerae anicteric. Buccal mucosa dry. NECK: Supple. CHEST: Rise symmetrical. Breath sounds clear, diminished to bases. HEART: S1, S2. ABDOMEN: Soft, bowel sounds present. EXTREMITIES: Without cyanosis. ASSESSMENT: 1. Systemic inflammatory response syndrome with persistent leukocytosis secondary to infected wound s, and possibly secondary to malignancy. 2. Lung cancer. 3. Cachexia. 4. Sacral decubitus with exposed bone and culture growing multidrug resistant organisms, status pos t debridement with wound VAC application. 5. History of Clostridium difficile, pneumonia and urinary tract infection. 6. Oral thrush. PLAN: The patient remains stable. Continue present care, antibiotics, local wound care. Dictated By: RUBIN MAYEN SUPERINTENDENT REFUSE DISPOSAL for JUAN COLLIER/SANDER Conf#: [id number] DID#: [id number]
--- NOTE | 2016-10-18 16:08 | CONS ---
Date/Time of Note Date/Time of Note DATE: 10/18/16 TIME: 16:07 Assessment/Plan Assessment/Plan Additional Assessment/Plan SIRS Intermittent hypotension Diastolic congestive heart failure, compensated Pulmonary hypertension Preserved ejection fraction Tricuspid valve regurgitation Lung cancer -Blood pressure trend remains stable, would continue to hold any antihypertensives at the current time. Chest x-ray done yesterday with no evidence of significant pulmonary vascular congestion. No new cardiac orders at the current time Consultation Date/Type/Reason Admit Date/Time Sep 26, 2016 at 20:07 Type of Consultation: cv Referring Provider: DRE LOBATO MD 24 HR Interval Summary Free Text/Dictation Denies shortness of breath, still with mild cough Exam/Review of Systems Vital Signs Vitals Vital Signs Date Time Temp Pulse Resp B/P Pulse Ox O2 Delivery O2 Flow Rate FiO2 10/18/16 09:05 2.0 10/18/16 08:00 Nasal Cannula 10/17/16 19:44 98.3 94 18 108/58 97 Intake and Output 10/17/16 10/17/16 10/18/16 15:00 23:00 07:00 Intake Total 50 ml 1472.8 ml 1830 ml Output Total 800 ml 950 ml Balance 50 ml 672.8 ml 880 ml Exam No apparent distress Constitutional: alert, frail, oriented Head: normocephalic Respiratory: other (Coarse breath sounds bilaterally, no wheezing) Cardiovascular: other (S1-S2 heard), regular rate and rhythm Gastrointestinal: bowel sounds, non-tender, soft Extremities: other (No edema) Results Result Diagram: 10/18/16 0515 10/18/16 0515 Results 24 hrs Laboratory Tests Test 10/18/16 05:15 White Blood Count 15.2 H Red Blood Count 3.34 L Hemoglobin 8.6 L Hematocrit 28.6 L Mean Corpuscular Volume 85.6 Mean Corpuscular Hemoglobin 25.7 L Mean Corpuscular Hemoglobin Concent 30.1 L Red Cell Distribution Width 17.7 H Platelet Count 342 Mean Platelet Volume 8.7 Neutrophils % 68.7 Lymphocytes % 12.2 L Monocytes % 11.9 H Eosinophils % 5.8 Basophils % 0.7 Nucleated Red Blood Cells % 0.0 Neutrophils # 10.4 H Lymphocytes # 1.9 Monocytes # 1.8 H Eosinophils # 0.9 H Basophils # 0.1 Nucleated Red Blood Cells # 0.0 Sodium Level 131 L Potassium Level 3.4 L Chloride Level 88 L Carbon Dioxide Level 33 H Anion Gap 13 Blood Urea Nitrogen 15 Creatinine 0.43 L Glucose Level 120 Calcium Level 8.2 L Medications Medications Current Medications Ondansetron HCl (Zofran Inj) 4 mg Q6 PRN IV NAUSEA AND/OR VOMITING; Start 09/26 at 22:30 Acetaminophen (Tylenol Tab) 650 mg Q6H PRN PO PAIN AND OR ELEVATED TEMP Last administered on 10/16/16 08:57; Admin Dose 650 MG; Start 09/26/16 at 23:00 Alprazolam (Xanax) 0.5 mg Q12 PRN PO ANXIETY Last administered on 10/04/16 20: 29; Admin Dose 0.5 MG; Start 09/26/16 at 23:00 Ascorbic Acid (Vitamin C) 500 mg BID PO Last administered on 10/18/16 08:09; Admin Dose 500 MG; Start 09/27/16 at 09:00 Atorvastatin Calcium (Lipitor) 20 mg QHS PO Last administered on 10/17/16 21:56 ; Admin Dose 20 MG; Start 09/27/16 at 21:00 Diazepam (Valium) 10 mg DAILY PO Last administered on 10/18/16 08:09; Admin Dose 10 MG; Start 09/27/16 at 09:00 Docusate Sodium (Colace) 100 mg Q12H PRN PO CONSTIPATION; Start 09/26/16 at 23: 00 Duloxetine HCl (Cymbalta) 20 mg DAILY PO Last administered on 10/18/16 08:09; Admin Dose 20 MG; Start 09/27/16 at 09:00 Gabapentin (Neurontin) 300 mg TID PO Last administered on 10/18/16 12:34; Admin Dose 300 MG; Start 09/27/16 at 09:00 Zolpidem Tartrate (Ambien) 5 mg QHS PRN PO INSOMNIA Last administered on 02:35; Admin Dose 5 MG; Start 09/26/16 at 23:00 Collagenase (Santyl) 1 applic DAILY TOP Last administered on 10/18/16 08:11; Admin Dose 1 APPLIC; Start 09/27/16 at 09:00 Collagenase (Santyl) 1 applic PRN PRN TOP SOILED OR DISLODGED DRESSING; Start 09/27/16 at 05:00 Lansoprazole (Prevacid) 30 mg DAILY@06 GTB Last administered on 10/18/16 05:18 ; Admin Dose 30 MG; Start 09/28/16 at 06:00 Mupirocin (Bactroban) 1 applic BID TOP Last administered on 10/18/16 08:11; Admin Dose 1 APPLIC; Start 09/28/16 at 21:00 Cromolyn Sodium (Nasalcrom) 1 spray QID NASAL Last administered on 10/18/16 12: 34; Admin Dose 1 SPRAY; Start 09/29/16 at 11:02 Linezolid (Zyvox) 600 mg BID PO Last administered on 10/18/16 08:09; Admin Dose 600 MG; Start 09/29/16 at 21:00 Amikacin Sulfate (Amikacin Iv Per Pharmacy) AMIKACIN PER PHARMACY NOTE XX ; Start 09/29/16 at 15:30 Phenol (Cepastat Lozenge) 1 lozenge Q2H PRN MT SORE THROAT Last administered on 10/02/16 12:48; Admin Dose 1 LOZENGE; Start 10/01/16 at 19:00 IV Flush (NS 10 ml) 10 ml PRN PRN IV IV PROTOCOL; Start 10/02/16 at 19:00 Lactobacillus Acidophilus (Florajen3 Capsule) 1 each TID PO Last administered on 10/18/16 13:18; Admin Dose 1 EACH; Start 10/03/16 at 21:00 Hydromorphone HCl (Dilaudid) 0.5 mg Q4H PRN IV PAIN Last administered on 12:29; Admin Dose 0.5 MG; Start 10/06/16 at 18:30 Promethazine HCl/ Codeine (Phenergan/ Codeine) 10 ml BID PRN PO COUGH; Start at 20:30 Morphine Sulfate 60 mg 60 mg Q6 PO Last administered on 10/18/16 12:28; Admin Dose 60 MG; Start 10/09/16 at 12:00 Metronidazole 250 mg/N/A 50 ml @ 50 mls/hr Q8 IVPB Last administered on 13:18; Admin Dose 50 MLS/HR; Start 10/10/16 at 22:00 Amikacin Sulfate/ Dextrose (Amikacin/D5W) 102.8 ml @ 102.8 mls/ hr Q36H IVPB Last administered on 10/17/16 21:56; Admin Dose 102.8 MLS/HR; Start 10/14/16 at 21:00 Sodium Chloride (Nacl) 1 gm TID PO Last administered on 10/18/16 12:28; Admin Dose 1 GM; Start 10/16/16 at 17:00 Fluconazole (Diflucan) 100 mg DAILY PO Last administered on 10/18/16 08:09; Admin Dose 100 MG; Start 10/17/16 at 13:00 Miscellaneous Information (*Rx Drug Level Order Reminder*) AMIKACIN TROUGH 10/19 AT 0800 ONCE ONCE XX ; Start 10/19/16 at 08:00; Stop 10/19/16 at 08:01 Artemio Tipton DO October 18, 2016 16:08
--- NOTE | 2016-10-18 17:29 | CONS ---
Date/Time of Note Date/Time of Note DATE: 10/18/16 TIME: 17:28 Assessment/Plan Assessment/Plan Additional Assessment/Plan 1. Hyponatremia, likely secondary to hypovolemic hyponatremia. 2. Status post acute kidney injury on chronic kidney disease due to systemic inflammatory response syndrome. 3. Systemic inflammatory response syndrome. 4. History of recurrent polymicrobial urinary tract infections. 5. History of dementia. 6. History of previous cerebrovascular accident. 7. History of chronic obstructive pulmonary disease, recently had acute respiratory failure secondary to chronic obstructive pulmonary disease exacerbation. 8. History of urinary retention with a chronic George catheter in place. 9. Chronic debility with cachexia. 10. Multiple decubitus ulcers with a history of debridement. 11. History of degenerative joint disease of spine. 12. History of hypertension and hypertensive heart disease with mild to moderate concentric left ventricular hypertrophy and echocardiogram with diastolic dysfunction stage I. PLAN: Na 131, pt likey has Component of SAIDH causing hypoantreia, due to acute on chronic pain continue Na Chloride tablet 1 gram PO TID will follow up Consultation Date/Type/Reason Admit Date/Time Sep 26, 2016 at 20:07 Type of Consultation: NEPHROLOGY Referring Provider: DRE LOBATO MD 24 HR Interval Summary Free Text/Dictation Na 131 Exam/Review of Systems Vital Signs Vitals Vital Signs Date Time Temp Pulse Resp B/P Pulse Ox O2 Delivery O2 Flow Rate FiO2 10/18/16 09:05 2.0 10/18/16 08:00 Nasal Cannula 10/17/16 19:44 98.3 94 18 108/58 97 Intake and Output 10/17/16 10/17/16 10/18/16 15:00 23:00 07:00 Intake Total 50 ml 1472.8 ml 1830 ml Output Total 800 ml 950 ml Balance 50 ml 672.8 ml 880 ml Exam GENERAL: This is a chronically ill-appearing, frail 66 yo F HEENT: Unremarkable -- NECK: Supple, trachea midline. CHEST: Rise symmetrical without dyspnea ABDOMEN: Refuses exam EXTREMITIES: Moves all extremities, Without cyanosis. Results Result Diagram: 10/18/16 0515 10/18/16 0515 Results 24 hrs Laboratory Tests Test 10/18/16 05:15 White Blood Count 15.2 H Red Blood Count 3.34 L Hemoglobin 8.6 L Hematocrit 28.6 L Mean Corpuscular Volume 85.6 Mean Corpuscular Hemoglobin 25.7 L Mean Corpuscular Hemoglobin Concent 30.1 L Red Cell Distribution Width 17.7 H Platelet Count 342 Mean Platelet Volume 8.7 Neutrophils % 68.7 Lymphocytes % 12.2 L Monocytes % 11.9 H Eosinophils % 5.8 Basophils % 0.7 Nucleated Red Blood Cells % 0.0 Neutrophils # 10.4 H Lymphocytes # 1.9 Monocytes # 1.8 H Eosinophils # 0.9 H Basophils # 0.1 Nucleated Red Blood Cells # 0.0 Sodium Level 131 L Potassium Level 3.4 L Chloride Level 88 L Carbon Dioxide Level 33 H Anion Gap 13 Blood Urea Nitrogen 15 Creatinine 0.43 L Glucose Level 120 Calcium Level 8.2 L Medications Medications Current Medications Ondansetron HCl (Zofran Inj) 4 mg Q6 PRN IV NAUSEA AND/OR VOMITING; Start 09/26 at 22:30 Acetaminophen (Tylenol Tab) 650 mg Q6H PRN PO PAIN AND OR ELEVATED TEMP Last administered on 10/16/16 08:57; Admin Dose 650 MG; Start 09/26/16 at 23:00 Alprazolam (Xanax) 0.5 mg Q12 PRN PO ANXIETY Last administered on 10/04/16 20: 29; Admin Dose 0.5 MG; Start 09/26/16 at 23:00 Ascorbic Acid (Vitamin C) 500 mg BID PO Last administered on 10/18/16 08:09; Admin Dose 500 MG; Start 09/27/16 at 09:00 Atorvastatin Calcium (Lipitor) 20 mg QHS PO Last administered on 10/17/16 21:56 ; Admin Dose 20 MG; Start 09/27/16 at 21:00 Diazepam (Valium) 10 mg DAILY PO Last administered on 10/18/16 08:09; Admin Dose 10 MG; Start 09/27/16 at 09:00 Docusate Sodium (Colace) 100 mg Q12H PRN PO CONSTIPATION; Start 09/26/16 at 23: 00 Duloxetine HCl (Cymbalta) 20 mg DAILY PO Last administered on 10/18/16 08:09; Admin Dose 20 MG; Start 09/27/16 at 09:00 Gabapentin (Neurontin) 300 mg TID PO Last administered on 10/18/16 12:34; Admin Dose 300 MG; Start 09/27/16 at 09:00 Zolpidem Tartrate (Ambien) 5 mg QHS PRN PO INSOMNIA Last administered on 02:35; Admin Dose 5 MG; Start 09/26/16 at 23:00 Collagenase (Santyl) 1 applic DAILY TOP Last administered on 10/18/16 08:11; Admin Dose 1 APPLIC; Start 09/27/16 at 09:00 Collagenase (Santyl) 1 applic PRN PRN TOP SOILED OR DISLODGED DRESSING; Start 09/27/16 at 05:00 Lansoprazole (Prevacid) 30 mg DAILY@06 GTB Last administered on 10/18/16 05:18 ; Admin Dose 30 MG; Start 09/28/16 at 06:00 Mupirocin (Bactroban) 1 applic BID TOP Last administered on 10/18/16 08:11; Admin Dose 1 APPLIC; Start 09/28/16 at 21:00 Cromolyn Sodium (Nasalcrom) 1 spray QID NASAL Last administered on 10/18/16 16: 23; Admin Dose 1 SPRAY; Start 09/29/16 at 11:02 Linezolid (Zyvox) 600 mg BID PO Last administered on 10/18/16 08:09; Admin Dose 600 MG; Start 09/29/16 at 21:00 Amikacin Sulfate (Amikacin Iv Per Pharmacy) AMIKACIN PER PHARMACY NOTE XX ; Start 09/29/16 at 15:30 Phenol (Cepastat Lozenge) 1 lozenge Q2H PRN MT SORE THROAT Last administered on 10/02/16 12:48; Admin Dose 1 LOZENGE; Start 10/01/16 at 19:00 IV Flush (NS 10 ml) 10 ml PRN PRN IV IV PROTOCOL; Start 10/02/16 at 19:00 Lactobacillus Acidophilus (Florajen3 Capsule) 1 each TID PO Last administered on 10/18/16 13:18; Admin Dose 1 EACH; Start 10/03/16 at 21:00 Hydromorphone HCl (Dilaudid) 0.5 mg Q4H PRN IV PAIN Last administered on 16:23; Admin Dose 0.5 MG; Start 10/06/16 at 18:30 Promethazine HCl/ Codeine (Phenergan/ Codeine) 10 ml BID PRN PO COUGH; Start at 20:30 Morphine Sulfate 60 mg 60 mg Q6 PO Last administered on 10/18/16 12:28; Admin Dose 60 MG; Start 10/09/16 at 12:00 Metronidazole 250 mg/N/A 50 ml @ 50 mls/hr Q8 IVPB Last administered on 13:18; Admin Dose 50 MLS/HR; Start 10/10/16 at 22:00 Amikacin Sulfate/ Dextrose (Amikacin/D5W) 102.8 ml @ 102.8 mls/ hr Q36H IVPB Last administered on 10/17/16 21:56; Admin Dose 102.8 MLS/HR; Start 10/14/16 at 21:00 Sodium Chloride (Nacl) 1 gm TID PO Last administered on 10/18/16 12:28; Admin Dose 1 GM; Start 10/16/16 at 17:00 Fluconazole (Diflucan) 100 mg DAILY PO Last administered on 10/18/16 08:09; Admin Dose 100 MG; Start 10/17/16 at 13:00 Miscellaneous Information (*Rx Drug Level Order Reminder*) AMIKACIN TROUGH 10/19 AT 0800 ONCE ONCE XX ; Start 10/19/16 at 08:00; Stop 10/19/16 at 08:01 DIONNE SAUCEDA MD October 18, 2016 17:29
--- NOTE | 2016-10-18 18:02 | PN ---
DATE: 10/18/2016 ADDENDUM: Patient seen and chart reviewed. Patient continues to have leukocytosis despite being on multiple a ntibiotics and also continues to remain frail and weak. The patient currently is not a candidate fo r any further treatment for lung cancer. Anyway, the patient and her daughter had refused further evaluation and workup for CA lung. I have requested consult from Dr. Christian Sinclair to reevaluate s acral decubitus. We will also refer her to [facility] for ongoing wound issues. P jonathan's white count this morning is 15.2. Dictated By: DRE MARCELINO/SANDER Conf#: [id number] DID#: [id number]
--- NOTE | 2016-10-18 18:21 | PN ---
Date/Time of Note Date/Time of Note DATE: 10/18/16 TIME: 18:19 Assessment/Plan VTE Prophylaxis VTE Prophylaxis Intervention: SCD's Lines/Catheters IV Catheter Type (from [facility]): PICC Line Central line still needed: Yes Urinary Cath still in place: Yes Reason Cath still needed: urinary retention Assessment/Plan Chief Complaint/Hosp Course ASSESSMENT AND PLAN: - Recurrent sepsis, resolving. Dr. Coleman is following in infection disease consultation. Continue antibiotics per ID. - Persistent leukocytosis secondary to multiple wounds and malignancy. - Hyponatremia, Dr. Zapata is following in nephrology consultation. - Polymicrobial urinary tract infection, s/p treatment. - Left lung squamous cell carcinoma. Patient is not a candidate for chemotherapy. - Chronic obstructive pulmonary disease. Continue breathing treatment. - Multiple decubitus ulcers with history of debridement. Continue current wound care. Wound culture is growing polymicrobial organisms. Continue antibiotics per ID. - Methicillin-resistant Staphylococcus aureus nares colonization. - Cachexia. Optimize nutrition. - Dysphagia with G-tube placement. Continue G-tube feeding. Aspiration precaution. - Chronic urinary retention. Continue George catheter. - Hypothyroidism. TSH is within normal limits. Continue Synthroid. - Anemia of chronic disease. Undergoing blood transfusion. - Right hand swelling, resolving. CT scan of the right hand is negative. Further recommendations based on clinical course. Plan of care discussed with Dr. Dozier. Problems: Subjective 24 Hr Interval Summary Free Text/Dictation Patient remains afebrile, tolerates G-tube feeding well, comfortable on supplemental oxygen. Exam/Review of Systems Vital Signs Vitals Vital Signs Date Time Temp Pulse Resp B/P Pulse Ox O2 Delivery O2 Flow Rate FiO2 10/18/16 09:05 2.0 10/18/16 08:00 Nasal Cannula 10/17/16 19:44 98.3 94 18 108/58 97 Intake and Output 10/17/16 10/17/16 10/18/16 15:00 23:00 07:00 Intake Total 50 ml 1472.8 ml 1830 ml Output Total 800 ml 950 ml Balance 50 ml 672.8 ml 880 ml Exam Constitutional: alert, oriented Psych: no complaints Head: atraumatic, normocephalic Eyes: nl conjunctiva ENMT: nl external ears & nose Neck: non-tender, supple Respiratory: clear to auscultation, normal air movement Cardiovascular: nl pulses, regular rate and rhythm Gastrointestinal: non-tender, other (G-tube), soft Musculoskeletal: nl extremities to inspection Extremities: normal pulses Neurological: 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 Results Result Diagram: 10/18/1615 10/18/16 0515 Results 24 hrs Laboratory Tests Test 10/18/16 05:15 White Blood Count 15.2 H Red Blood Count 3.34 L Hemoglobin 8.6 L Hematocrit 28.6 L Mean Corpuscular Volume 85.6 Mean Corpuscular Hemoglobin 25.7 L Mean Corpuscular Hemoglobin Concent 30.1 L Red Cell Distribution Width 17.7 H Platelet Count 342 Mean Platelet Volume 8.7 Neutrophils % 68.7 Lymphocytes % 12.2 L Monocytes % 11.9 H Eosinophils % 5.8 Basophils % 0.7 Nucleated Red Blood Cells % 0.0 Neutrophils # 10.4 H Lymphocytes # 1.9 Monocytes # 1.8 H Eosinophils # 0.9 H Basophils # 0.1 Nucleated Red Blood Cells # 0.0 Sodium Level 131 L Potassium Level 3.4 L Chloride Level 88 L Carbon Dioxide Level 33 H Anion Gap 13 Blood Urea Nitrogen 15 Creatinine 0.43 L Glucose Level 120 Calcium Level 8.2 L Medications Medications Current Medications Ondansetron HCl (Zofran Inj) 4 mg Q6 PRN IV NAUSEA AND/OR VOMITING; Start 09/26 at 22:30 Acetaminophen (Tylenol Tab) 650 mg Q6H PRN PO PAIN AND OR ELEVATED TEMP Last administered on 10/16/16 08:57; Admin Dose 650 MG; Start 09/26/16 at 23:00 Alprazolam (Xanax) 0.5 mg Q12 PRN PO ANXIETY Last administered on 10/04/16 20: 29; Admin Dose 0.5 MG; Start 09/26/16 at 23:00 Ascorbic Acid (Vitamin C) 500 mg BID PO Last administered on 10/18/16 08:09; Admin Dose 500 MG; Start 09/27/16 at 09:00 Atorvastatin Calcium (Lipitor) 20 mg QHS PO Last administered on 10/17/16 21:56 ; Admin Dose 20 MG; Start 09/27/16 at 21:00 Diazepam (Valium) 10 mg DAILY PO Last administered on 10/18/16 08:09; Admin Dose 10 MG; Start 09/27/16 at 09:00 Docusate Sodium (Colace) 100 mg Q12H PRN PO CONSTIPATION; Start 09/26/16 at 23: 00 Duloxetine HCl (Cymbalta) 20 mg DAILY PO Last administered on 10/18/16 08:09; Admin Dose 20 MG; Start 09/27/16 at 09:00 Gabapentin (Neurontin) 300 mg TID PO Last administered on 10/18/16 12:34; Admin Dose 300 MG; Start 09/27/16 at 09:00 Zolpidem Tartrate (Ambien) 5 mg QHS PRN PO INSOMNIA Last administered on 02:35; Admin Dose 5 MG; Start 09/26/16 at 23:00 Collagenase (Santyl) 1 applic DAILY TOP Last administered on 10/18/16 08:11; Admin Dose 1 APPLIC; Start 09/27/16 at 09:00 Collagenase (Santyl) 1 applic PRN PRN TOP SOILED OR DISLODGED DRESSING; Start 09/27/16 at 05:00 Lansoprazole (Prevacid) 30 mg DAILY@06 GTB Last administered on 10/18/16 05:18 ; Admin Dose 30 MG; Start 09/28/16 at 06:00 Mupirocin (Bactroban) 1 applic BID TOP Last administered on 10/18/16 08:11; Admin Dose 1 APPLIC; Start 09/28/16 at 21:00 Cromolyn Sodium (Nasalcrom) 1 spray QID NASAL Last administered on 10/18/16 16: 23; Admin Dose 1 SPRAY; Start 09/29/16 at 11:02 Linezolid (Zyvox) 600 mg BID PO Last administered on 10/18/16 08:09; Admin Dose 600 MG; Start 09/29/16 at 21:00 Amikacin Sulfate (Amikacin Iv Per Pharmacy) AMIKACIN PER PHARMACY NOTE XX ; Start 09/29/16 at 15:30 Phenol (Cepastat Lozenge) 1 lozenge Q2H PRN MT SORE THROAT Last administered on 10/02/16 12:48; Admin Dose 1 LOZENGE; Start 10/01/16 at 19:00 IV Flush (NS 10 ml) 10 ml PRN PRN IV IV PROTOCOL; Start 10/02/16 at 19:00 Lactobacillus Acidophilus (Florajen3 Capsule) 1 each TID PO Last administered on 10/18/16 13:18; Admin Dose 1 EACH; Start 10/03/16 at 21:00 Hydromorphone HCl (Dilaudid) 0.5 mg Q4H PRN IV PAIN Last administered on 16:23; Admin Dose 0.5 MG; Start 10/06/16 at 18:30 Promethazine HCl/ Codeine (Phenergan/ Codeine) 10 ml BID PRN PO COUGH; Start at 20:30 Morphine Sulfate 60 mg 60 mg Q6 PO Last administered on 10/18/16 18:04; Admin Dose 60 MG; Start 10/09/16 at 12:00 Metronidazole 250 mg/N/A 50 ml @ 50 mls/hr Q8 IVPB Last administered on 13:18; Admin Dose 50 MLS/HR; Start 10/10/16 at 22:00 Amikacin Sulfate/ Dextrose (Amikacin/D5W) 102.8 ml @ 102.8 mls/ hr Q36H IVPB Last administered on 10/17/16 21:56; Admin Dose 102.8 MLS/HR; Start 10/14/16 at 21:00 Sodium Chloride (Nacl) 1 gm TID PO Last administered on 10/18/16 12:28; Admin Dose 1 GM; Start 10/16/16 at 17:00 Fluconazole (Diflucan) 100 mg DAILY PO Last administered on 10/18/16 08:09; Admin Dose 100 MG; Start 10/17/16 at 13:00 Miscellaneous Information (*Rx Drug Level Order Reminder*) AMIKACIN TROUGH 10/19 AT 0800 ONCE ONCE XX ; Start 10/19/16 at 08:00; Stop 10/19/16 at 08:01 REBECCA ISLAS October 18, 2016 18:21
[2016-10-18 20:27] VITALS: BP 115/69; RESP 16
[2016-10-18] MEDS: ATORVASTATIN 20 MG TAB PO SCH (21:26)
[2016-10-18] MEDS: ACETAMINOPHEN 325 MG TAB PO PRN (21:27)
[2016-10-18 23:57] VITALS: PULSE 80
[2016-10-19] MEDS: HYDROmorphONE 1 MG/ML SYG IV PRN (02:07)
[2016-10-19] MEDS: morphine (ER) 30 MG TAB PO SCH ×4 (05:19→23:53)
[2016-10-19] MEDS: metroNIDAZOLE 500 MG/NS (PMX) 250 MG in EVAC CONTAINER 1 BOTTLE IVPB SCH ×3 (05:19→22:57)
[2016-10-19] MEDS: LANSOPRAZOLE 30 MG CAP GTB SCH (05:19)
[2016-10-19] MEDS: LEVOTHYROXINE 125 MCG TAB PO SCH (05:20)
[2016-10-19 08:08] VITALS: BP 97/66; PULSE 85; RESP 15
[2016-10-19 08:30] VITALS: BP 108/67
[2016-10-19] MEDS: COLLAGENASE 30 GM TUBE TOP SCH (09:00)
[2016-10-19] MEDS: AMIKACIN 700 MG in DEXTROSE 5% 100 ML IVPB SCH (10:01)
[2016-10-19] MEDS: CROMOLYN 4% 26ML NAS INH NASAL SCH ×4 (10:01→20:53)
[2016-10-19] MEDS: ZYVOX 600 MG TAB PO SCH ×2 (10:02→20:52)
[2016-10-19] MEDS: MUPIROCIN 2% 22 GM OINT TOP SCH ×2 (10:02→20:53)
[2016-10-19] MEDS: ASCORBIC ACID 500 MG TAB PO SCH ×2 (10:02→20:52)
[2016-10-19] MEDS: FLUCONAZOLE 100 MG TAB PO SCH (10:02)
[2016-10-19] MEDS: SODIUM CHLORIDE 1 GM TAB PO SCH ×3 (10:02→20:52)
[2016-10-19] MEDS: DULOXETINE 20 MG CAP DR PO SCH (10:02)
[2016-10-19] MEDS: DIAZEPAM 5 MG TAB PO SCH (10:02)
[2016-10-19] MEDS: GABAPENTIN 300 MG CAP PO SCH ×3 (10:03→20:52)
[2016-10-19] MEDS: L ACIDOPHIL/B LACTIS/B LONGUM CAPSULE PO SCH ×3 (10:05→20:52)
--- NOTE | 2016-10-19 12:17 | CONS ---
Date/Time of Note Date/Time of Note DATE: 10/19/16 TIME: 12:16 Assessment/Plan Assessment/Plan Chief Complaint/Hosp Course SUBJECTIVE: No events overnight. The patient is alert. Looks comfortable, no fevers. ANTIMICROBIALS: 1. Amikacin. 2. Fluconazole. 3. Flagyl. 4. Zyvox. 5. Topical Bactroban to nares. INDWELLINGS: PEG, George, PICC line. PHYSICAL EXAMINATION: GENERAL: A cachectic elderly woman who is awake, in no distress. HEENT: Head atraumatic, normocephalic. Sclerae anicteric. Buccal mucosa dry. NECK: Supple. CHEST: Rise symmetrical. Breath sounds clear, diminished to bases. HEART: S1, S2. ABDOMEN: Soft, bowel sounds present. EXTREMITIES: Without cyanosis. ASSESSMENT: 1. Systemic inflammatory response syndrome with persistent leukocytosis secondary to infected wounds, and possibly secondary to malignancy. 2. Lung cancer. 3. Cachexia. 4. Sacral decubitus with exposed bone and culture growing multidrug resistant organisms, status post debridement with wound VAC application. 5. History of Clostridium difficile, pneumonia and urinary tract infection. 6. Oral thrush. PLAN: The patient remains stable. Continue present care, antibiotics, local wound care. DW staff Problems: Consultation Date/Type/Reason Admit Date/Time Sep 26, 2016 at 20:07 Type of Consultation: id Referring Provider: DRE LOBATO MD Exam/Review of Systems Vital Signs Vitals Vital Signs Date Time Temp Pulse Resp B/P Pulse Ox O2 Delivery O2 Flow Rate FiO2 10/19/16 08:30 108/67 10/19/16 08:08 97.6 85 15 98 10/19/16 08:00 Nasal Cannula 10/19/16 00:18 2.0 Intake and Output 10/18/16 10/18/16 10/19/16 14:59 22:59 06:59 Intake Total 1270 ml 1170 ml Output Total 800 ml 600 ml Balance 470 ml 570 ml Results Result Diagram: 10/18/16 0515 10/18/16 0515 Medications Medications Current Medications Ondansetron HCl (Zofran Inj) 4 mg Q6 PRN IV NAUSEA AND/OR VOMITING; Start 09/26 at 22:30 Acetaminophen (Tylenol Tab) 650 mg Q6H PRN PO PAIN AND OR ELEVATED TEMP Last administered on 10/18/16 21:27; Admin Dose 650 MG; Start 09/26/16 at 23:00 Alprazolam (Xanax) 0.5 mg Q12 PRN PO ANXIETY Last administered on 10/04/16 20: 29; Admin Dose 0.5 MG; Start 09/26/16 at 23:00 Ascorbic Acid (Vitamin C) 500 mg BID PO Last administered on 10/19/16 10:02; Admin Dose 500 MG; Start 09/27/16 at 09:00 Atorvastatin Calcium (Lipitor) 20 mg QHS PO Last administered on 10/18/16 21:26 ; Admin Dose 20 MG; Start 09/27/16 at 21:00 Diazepam (Valium) 10 mg DAILY PO Last administered on 10/19/16 10:02; Admin Dose 10 MG; Start 09/27/16 at 09:00 Docusate Sodium (Colace) 100 mg Q12H PRN PO CONSTIPATION; Start 09/26/16 at 23: 00 Duloxetine HCl (Cymbalta) 20 mg DAILY PO Last administered on 10/19/16 10:02; Admin Dose 20 MG; Start 09/27/16 at 09:00 Gabapentin (Neurontin) 300 mg TID PO Last administered on 10/19/16 10:03; Admin Dose 300 MG; Start 09/27/16 at 09:00 Zolpidem Tartrate (Ambien) 5 mg QHS PRN PO INSOMNIA Last administered on 02:35; Admin Dose 5 MG; Start 09/26/16 at 23:00 Collagenase (Santyl) 1 applic DAILY TOP Last administered on 10/18/16 08:11; Admin Dose 1 APPLIC; Start 09/27/16 at 09:00 Collagenase (Santyl) 1 applic PRN PRN TOP SOILED OR DISLODGED DRESSING; Start 09/27/16 at 05:00 Lansoprazole (Prevacid) 30 mg DAILY@06 GTB Last administered on 10/19/16 05:19 ; Admin Dose 30 MG; Start 09/28/16 at 06:00 Mupirocin (Bactroban) 1 applic BID TOP Last administered on 10/19/16 10:02; Admin Dose 1 APPLIC; Start 09/28/16 at 21:00 Cromolyn Sodium (Nasalcrom) 1 spray QID NASAL Last administered on 10/19/16 10: 01; Admin Dose 1 SPRAY; Start 09/29/16 at 11:02 Linezolid (Zyvox) 600 mg BID PO Last administered on 10/19/16 10:02; Admin Dose 600 MG; Start 09/29/16 at 21:00 Amikacin Sulfate (Amikacin Iv Per Pharmacy) AMIKACIN PER PHARMACY NOTE XX ; Start 09/29/16 at 15:30 Phenol (Cepastat Lozenge) 1 lozenge Q2H PRN MT SORE THROAT Last administered on 10/02/16 12:48; Admin Dose 1 LOZENGE; Start 10/01/16 at 19:00 IV Flush (NS 10 ml) 10 ml PRN PRN IV IV PROTOCOL; Start 10/02/16 at 19:00 Lactobacillus Acidophilus (Florajen3 Capsule) 1 each TID PO Last administered on 10/19/16 10:05; Admin Dose 1 EACH; Start 10/03/16 at 21:00 Hydromorphone HCl (Dilaudid) 0.5 mg Q4H PRN IV PAIN Last administered on 02:07; Admin Dose 0.5 MG; Start 10/06/16 at 18:30 Promethazine HCl/ Codeine (Phenergan/ Codeine) 10 ml BID PRN PO COUGH; Start at 20:30 Morphine Sulfate 60 mg 60 mg Q6 PO Last administered on 10/19/16 11:26; Admin Dose 60 MG; Start 10/09/16 at 12:00 Metronidazole 250 mg/N/A 50 ml @ 50 mls/hr Q8 IVPB Last administered on 05:19; Admin Dose 50 MLS/HR; Start 10/10/16 at 22:00 Amikacin Sulfate/ Dextrose (Amikacin/D5W) 102.8 ml @ 102.8 mls/ hr Q36H IVPB Last administered on 10/19/16 10:01; Admin Dose 102.8 MLS/HR; Start 10/14/16 at 21:00 Sodium Chloride (Nacl) 1 gm TID PO Last administered on 10/19/16 10:02; Admin Dose 1 GM; Start 10/16/16 at 17:00 Fluconazole (Diflucan) 100 mg DAILY PO Last administered on 10/19/16t 10:02; Admin Dose 100 MG; Start 10/17/16 at 13:00 RUBIN MAYEN NP October 19, 2016 12:17
--- NOTE | 2016-10-19 14:23 | CONS ---
Date/Time of Note Date/Time of Note DATE: 10/19/16 TIME: 14:22 Assessment/Plan Assessment/Plan Additional Assessment/Plan SIRS Intermittent hypotension Diastolic congestive heart failure, compensated Pulmonary hypertension Preserved ejection fraction Tricuspid valve regurgitation Lung cancer -Blood pressure trend remains stable, would continue to hold any antihypertensives at the current time. No new cardiac orders at the current time Consultation Date/Type/Reason Admit Date/Time Sep 26, 2016 at 20:07 Type of Consultation: cv Referring Provider: DRE LOBATO MD 24 HR Interval Summary Free Text/Dictation Denies shortness of breath, cough is better today Exam/Review of Systems Vital Signs Vitals Vital Signs Date Time Temp Pulse Resp B/P Pulse Ox O2 Delivery O2 Flow Rate FiO2 10/19/16 08:30 108/67 10/19/16 08:08 97.6 85 15 98 10/19/16 08:00 Nasal Cannula 10/19/16 00:18 2.0 Intake and Output 10/18/16 10/18/16 10/19/16 15:00 23:00 07:00 Intake Total 1270 ml 1170 ml Output Total 800 ml 600 ml Balance 470 ml 570 ml Exam No apparent distress Constitutional: alert, frail, oriented Head: normocephalic Respiratory: other (Coarse breath sounds bilaterally, no wheezing) Cardiovascular: other (S1-S2 heard), regular rate and rhythm Gastrointestinal: bowel sounds, non-tender, soft Extremities: other (No edema) Results Result Diagram: 10/18/16 0515 10/18/16 0515 Results 24 hrs Laboratory Tests Test 10/19/16 08:10 10/19/16 12:45 Amikacin Level Trough Lab Scanned Report REFERENCE LAB Medications Medications Current Medications Ondansetron HCl (Zofran Inj) 4 mg Q6 PRN IV NAUSEA AND/OR VOMITING; Start 09/26 at 22:30 Acetaminophen (Tylenol Tab) 650 mg Q6H PRN PO PAIN AND OR ELEVATED TEMP Last administered on 10/18/16 21:27; Admin Dose 650 MG; Start 09/26/16 at 23:00 Alprazolam (Xanax) 0.5 mg Q12 PRN PO ANXIETY Last administered on 10/04/16 20: 29; Admin Dose 0.5 MG; Start 09/26/16 at 23:00 Ascorbic Acid (Vitamin C) 500 mg BID PO Last administered on 10/19/16 10:02; Admin Dose 500 MG; Start 09/27/16 at 09:00 Atorvastatin Calcium (Lipitor) 20 mg QHS PO Last administered on 10/18/16 21:26 ; Admin Dose 20 MG; Start 09/27/16 at 21:00 Diazepam (Valium) 10 mg DAILY PO Last administered on 10/19/16 10:02; Admin Dose 10 MG; Start 09/27/16 at 09:00 Docusate Sodium (Colace) 100 mg Q12H PRN PO CONSTIPATION; Start 09/26/16 at 23: 00 Duloxetine HCl (Cymbalta) 20 mg DAILY PO Last administered on 10/19/16 10:02; Admin Dose 20 MG; Start 09/27/16 at 09:00 Gabapentin (Neurontin) 300 mg TID PO Last administered on 10/19/16 13:41; Admin Dose 300 MG; Start 09/27/16 at 09:00 Zolpidem Tartrate (Ambien) 5 mg QHS PRN PO INSOMNIA Last administered on 02:35; Admin Dose 5 MG; Start 09/26/16 at 23:00 Collagenase (Santyl) 1 applic DAILY TOP Last administered on 10/18/16 08:11; Admin Dose 1 APPLIC; Start 09/27/16 at 09:00 Collagenase (Santyl) 1 applic PRN PRN TOP SOILED OR DISLODGED DRESSING; Start 09/27/16 at 05:00 Lansoprazole (Prevacid) 30 mg DAILY@06 GTB Last administered on 10/19/16 05:19 ; Admin Dose 30 MG; Start 09/28/16 at 06:00 Mupirocin (Bactroban) 1 applic BID TOP Last administered on 10/19/16 10:02; Admin Dose 1 APPLIC; Start 09/28/16 at 21:00 Cromolyn Sodium (Nasalcrom) 1 spray QID NASAL Last administered on 10/19/16 13: 39; Admin Dose 1 SPRAY; Start 09/29/16 at 11:02 Linezolid (Zyvox) 600 mg BID PO Last administered on 10/19/16 10:02; Admin Dose 600 MG; Start 09/29/16 at 21:00 Amikacin Sulfate (Amikacin Iv Per Pharmacy) AMIKACIN PER PHARMACY NOTE XX ; Start 09/29/16 at 15:30 Phenol (Cepastat Lozenge) 1 lozenge Q2H PRN MT SORE THROAT Last administered on 10/02/16 12:48; Admin Dose 1 LOZENGE; Start 10/01/16 at 19:00 IV Flush (NS 10 ml) 10 ml PRN PRN IV IV PROTOCOL; Start 10/02/16 at 19:00 Lactobacillus Acidophilus (Florajen3 Capsule) 1 each TID PO Last administered on 10/19/16 13:40; Admin Dose 1 EACH; Start 10/03/16 at 21:00 Hydromorphone HCl (Dilaudid) 0.5 mg Q4H PRN IV PAIN Last administered on 02:07; Admin Dose 0.5 MG; Start 10/06/16 at 18:30 Promethazine HCl/ Codeine (Phenergan/ Codeine) 10 ml BID PRN PO COUGH; Start at 20:30 Morphine Sulfate 60 mg 60 mg Q6 PO Last administered on 10/19/16 11:26; Admin Dose 60 MG; Start 10/09/16 at 12:00 Metronidazole 250 mg/N/A 50 ml @ 50 mls/hr Q8 IVPB Last administered on 13:43; Admin Dose 50 MLS/HR; Start 10/10/16 at 22:00 Amikacin Sulfate/ Dextrose (Amikacin/D5W) 102.8 ml @ 102.8 mls/ hr Q36H IVPB Last administered on 10/19/16 10:01; Admin Dose 102.8 MLS/HR; Start 10/14/16 at 21:00 Sodium Chloride (Nacl) 1 gm TID PO Last administered on 10/19/16 13:41; Admin Dose 1 GM; Start 10/16/16 at 17:00 Fluconazole (Diflucan) 100 mg DAILY PO Last administered on 10/19/16 10:02; Admin Dose 100 MG; Start 10/17/16 at 13:00 Artemio Tipton DO October 19, 2016 14:23
--- NOTE | 2016-10-19 17:55 | PN ---
Date/Time of Note Date/Time of Note DATE: 10/19/16 TIME: 17:54 Assessment/Plan VTE Prophylaxis VTE Prophylaxis Intervention: SCD's Lines/Catheters IV C[facility]ter Type (from [facility] PICC Line Central line still needed: Yes Urinary Cath still in place: Yes Reason Cath still needed: urinary retention Assessment/Plan Chief Complaint/Hosp Course ASSESSMENT AND PLAN: - Recurrent sepsis, resolving. Dr. Coleman is following in infection disease consultation. Continue antibiotics per ID. - Persistent leukocytosis secondary to multiple wounds and malignancy. - Hyponatremia, Dr. Zapata is following in nephrology consultation. - Polymicrobial urinary tract infection, s/p treatment. - Left lung squamous cell carcinoma. Patient is not a candidate for chemotherapy. - Chronic obstructive pulmonary disease. Continue breathing treatment. - Multiple decubitus ulcers with history of debridement. Continue current wound care. Wound culture is growing polymicrobial organisms. Continue antibiotics per ID. - Methicillin-resistant Staphylococcus aureus nares colonization. - Cachexia. Optimize nutrition. - Dysphagia with G-tube placement. Continue G-tube feeding. Aspiration precaution. - Chronic urinary retention. Continue George catheter. - Hypothyroidism. TSH is within normal limits. Continue Synthroid. - Anemia of chronic disease. Undergoing blood transfusion. - Right hand swelling, resolving. CT scan of the right hand is negative. Further recommendations based on clinical course. Plan of care discussed with Dr. Dozier. Problems: Subjective 24 Hr Interval Summary Free Text/Dictation Patient's remains afebrile with borderline pressure, persistent leukocytosis, Exam/Review of Systems Vital Signs Vitals Vital Signs Date Time Temp Pulse Resp B/P Pulse Ox O2 Delivery O2 Flow Rate FiO2 10/19/16 08:30 108/67 10/19/16 08:08 97.6 85 15 98 10/19/16 08:00 Nasal Cannula 10/19/16 00:18 2.0 Intake and Output 10/18/16 10/18/16 10/19/16 15:00 23:00 07:00 Intake Total 1270 ml 1170 ml Output Total 800 ml 600 ml Balance 470 ml 570 ml Exam Constitutional: alert, oriented Psych: no complaints Head: atraumatic, normocephalic Eyes: nl conjunctiva ENMT: nl external ears & nose Neck: non-tender, supple Respiratory: clear to auscultation, normal air movement Cardiovascular: nl pulses, regular rate and rhythm Gastrointestinal: non-tender, other (G-tube), soft Musculoskeletal: nl extremities to inspection Extremities: normal pulses Neurological: 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 Results Result Diagram: 10/18/1615 10/18/1615 Results 24 hrs Laboratory Tests Test 10/19/16 08:10 10/19/16 12:45 Amikacin Level Trough Lab Scanned Report REFERENCE LAB Medications Medications Current Medications Ondansetron HCl (Zofran Inj) 4 mg Q6 PRN IV NAUSEA AND/OR VOMITING; Start 09/26 at 22:30 Acetaminophen (Tylenol Tab) 650 mg Q6H PRN PO PAIN AND OR ELEVATED TEMP Last administered on 10/18/16 21:27; Admin Dose 650 MG; Start 09/26/16 at 23:00 Alprazolam (Xanax) 0.5 mg Q12 PRN PO ANXIETY Last administered on 10/04/16 20: 29; Admin Dose 0.5 MG; Start 09/26/16 at 23:00 Ascorbic Acid (Vitamin C) 500 mg BID PO Last administered on 10/19/16 10:02; Admin Dose 500 MG; Start 09/27/16 at 09:00 Atorvastatin Calcium (Lipitor) 20 mg QHS PO Last administered on 10/18/16 21:26 ; Admin Dose 20 MG; Start 09/27/16 at 21:00 Diazepam (Valium) 10 mg DAILY PO Last administered on 10/19/16 10:02; Admin Dose 10 MG; Start 09/27/16 at 09:00 Docusate Sodium (Colace) 100 mg Q12H PRN PO CONSTIPATION; Start 09/26/16 at 23: 00 Duloxetine HCl (Cymbalta) 20 mg DAILY PO Last administered on 10/19/16 10:02; Admin Dose 20 MG; Start 09/27/16 at 09:00 Gabapentin (Neurontin) 300 mg TID PO Last administered on 10/19/16 13:41; Admin Dose 300 MG; Start 09/27/16 at 09:00 Zolpidem Tartrate (Ambien) 5 mg QHS PRN PO INSOMNIA Last administered on 02:35; Admin Dose 5 MG; Start 09/26/16 at 23:00 Collagenase (Santyl) 1 applic DAILY TOP Last administered on 10/18/16 08:11; Admin Dose 1 APPLIC; Start 09/27/16 at 09:00 Collagenase (Santyl) 1 applic PRN PRN TOP SOILED OR DISLODGED DRESSING; Start 09/27/16 at 05:00 Lansoprazole (Prevacid) 30 mg DAILY@06 GTB Last administered on 10/19/16 05:19 ; Admin Dose 30 MG; Start 09/28/16 at 06:00 Mupirocin (Bactroban) 1 applic BID TOP Last administered on 10/19/16 10:02; Admin Dose 1 APPLIC; Start 09/28/16 at 21:00 Cromolyn Sodium (Nasalcrom) 1 spray QID NASAL Last administered on 10/19/16 13: 39; Admin Dose 1 SPRAY; Start 09/29/16 at 11:02 Linezolid (Zyvox) 600 mg BID PO Last administered on 10/19/16 10:02; Admin Dose 600 MG; Start 09/29/16 at 21:00 Amikacin Sulfate (Amikacin Iv Per Pharmacy) AMIKACIN PER PHARMACY NOTE XX ; Start 09/29/16 at 15:30 Phenol (Cepastat Lozenge) 1 lozenge Q2H PRN MT SORE THROAT Last administered on 10/02/16 12:48; Admin Dose 1 LOZENGE; Start 10/01/16 at 19:00 IV Flush (NS 10 ml) 10 ml PRN PRN IV IV PROTOCOL; Start 10/02/16 at 19:00 Lactobacillus Acidophilus (Florajen3 Capsule) 1 each TID PO Last administered on 10/19/16 13:40; Admin Dose 1 EACH; Start 10/03/16 at 21:00 Hydromorphone HCl (Dilaudid) 0.5 mg Q4H PRN IV PAIN Last administered on 02:07; Admin Dose 0.5 MG; Start 10/06/16 at 18:30 Promethazine HCl/ Codeine (Phenergan/ Codeine) 10 ml BID PRN PO COUGH; Start at 20:30 Morphine Sulfate 60 mg 60 mg Q6 PO Last administered on 5/4/17at 11:26; Admin Dose 60 MG; Start 10/09/16 at 12:00 Metronidazole 250 mg/N/A 50 ml @ 50 mls/hr Q8 IVPB Last administered on 13:43; Admin Dose 50 MLS/HR; Start 10/10/16 at 22:00 Amikacin Sulfate/ Dextrose (Amikacin/D5W) 102.8 ml @ 102.8 mls/ hr Q36H IVPB Last administered on 10/19/16 10:01; Admin Dose 102.8 MLS/HR; Start 10/14/16 at 21:00 Sodium Chloride (Nacl) 1 gm TID PO Last administered on 10/19/16 13:41; Admin Dose 1 GM; Start 10/16/16 at 17:00 Fluconazole (Diflucan) 100 mg DAILY PO Last administered on 10/19/16 10:02; Admin Dose 100 MG; Start 10/17/16 at 13:00 REBECCA ISLAS October 19, 2016 17:55
--- NOTE | 2016-10-19 18:21 | CONS ---
Date/Time of Note Date/Time of Note DATE: 10/19/16 TIME: 18:19 Assessment/Plan Assessment/Plan Additional Assessment/Plan 1. Hyponatremia, likely secondary to hypovolemic hyponatremia. 2. Status post acute kidney injury on chronic kidney disease due to systemic inflammatory response syndrome. 3. Systemic inflammatory response syndrome. 4. History of recurrent polymicrobial urinary tract infections. 5. History of dementia. 6. History of previous cerebrovascular accident. 7. History of chronic obstructive pulmonary disease, recently had acute respiratory failure secondary to chronic obstructive pulmonary disease exacerbation. 8. History of urinary retention with a chronic George catheter in place. 9. Chronic debility with cachexia. 10. Multiple decubitus ulcers with a history of debridement. 11. History of degenerative joint disease of spine. 12. History of hypertension and hypertensive heart disease with mild to moderate concentric left ventricular hypertrophy and echocardiogram with diastolic dysfunction stage I. PLAN: Na 134, pt likey has Component of SAIDH causing hypoantreia, due to acute on chronic pain continue Na Chloride tablet 1 gram PO TID K 3.4- replace as needed ,KCl 20mEQ IV x 1 dose now will follow up Consultation Date/Type/Reason Admit Date/Time Sep 26, 2016 at 20:07 Type of Consultation: NEPHROLOGY Referring Provider: DRE LOBATO MD 24 HR Interval Summary Free Text/Dictation no acute events, BP stable, afebrile Exam/Review of Systems Vital Signs Vitals Vital Signs Date Time Temp Pulse Resp B/P Pulse Ox O2 Delivery O2 Flow Rate FiO2 10/19/16 08:30 108/67 10/19/16 08:08 97.6 85 15 98 10/19/16 08:00 Nasal Cannula 10/19/16 00:18 2.0 Intake and Output 10/18/16 10/18/16 10/19/16 15:00 23:00 07:00 Intake Total 1270 ml 1170 ml Output Total 800 ml 600 ml Balance 470 ml 570 ml Exam No apparent distress Constitutional: alert, frail, oriented Head: normocephalic Respiratory: other (Coarse breath sounds bilaterally, no wheezing) Cardiovascular: other (S1-S2 heard), regular rate and rhythm Gastrointestinal: bowel sounds, non-tender, soft Extremities: other (No edema) Results Result Diagram: 10/18/16 0515 10/18/16 0515 Results 24 hrs Laboratory Tests Test 10/19/16 08:10 10/19/16 12:45 Amikacin Level Trough Lab Scanned Report REFERENCE LAB Medications Medications Current Medications Ondansetron HCl (Zofran Inj) 4 mg Q6 PRN IV NAUSEA AND/OR VOMITING; Start 09/26 at 22:30 Acetaminophen (Tylenol Tab) 650 mg Q6H PRN PO PAIN AND OR ELEVATED TEMP Last administered on 10/18/16 21:27; Admin Dose 650 MG; Start 09/26/16 at 23:00 Alprazolam (Xanax) 0.5 mg Q12 PRN PO ANXIETY Last administered on 10/04/16 20: 29; Admin Dose 0.5 MG; Start 09/26/16 at 23:00 Ascorbic Acid (Vitamin C) 500 mg BID PO Last administered on 10/19/16 10:02; Admin Dose 500 MG; Start 09/27/16 at 09:00 Atorvastatin Calcium (Lipitor) 20 mg QHS PO Last administered on 10/18/16 21:26 ; Admin Dose 20 MG; Start 09/27/16 at 21:00 Diazepam (Valium) 10 mg DAILY PO Last administered on 10/19/16 10:02; Admin Dose 10 MG; Start 09/27/16 at 09:00 Docusate Sodium (Colace) 100 mg Q12H PRN PO CONSTIPATION; Start 09/26/16 at 23: 00 Duloxetine HCl (Cymbalta) 20 mg DAILY PO Last administered on 10/19/16 10:02; Admin Dose 20 MG; Start 09/27/16 at 09:00 Gabapentin (Neurontin) 300 mg TID PO Last administered on 10/19/16 13:41; Admin Dose 300 MG; Start 09/27/16 at 09:00 Zolpidem Tartrate (Ambien) 5 mg QHS PRN PO INSOMNIA Last administered on 02:35; Admin Dose 5 MG; Start 09/26/16 at 23:00 Collagenase (Santyl) 1 applic DAILY TOP Last administered on 10/18/16 08:11; Admin Dose 1 APPLIC; Start 09/27/16 at 09:00 Collagenase (Santyl) 1 applic PRN PRN TOP SOILED OR DISLODGED DRESSING; Start 09/27/16 at 05:00 Lansoprazole (Prevacid) 30 mg DAILY@06 GTB Last administered on 10/19/16 05:19 ; Admin Dose 30 MG; Start 09/28/16 at 06:00 Mupirocin (Bactroban) 1 applic BID TOP Last administered on 10/19/16 10:02; Admin Dose 1 APPLIC; Start 09/28/16 at 21:00 Cromolyn Sodium (Nasalcrom) 1 spray QID NASAL Last administered on 10/19/16 13: 39; Admin Dose 1 SPRAY; Start 09/29/16 at 11:02 Linezolid (Zyvox) 600 mg BID PO Last administered on 10/19/16 10:02; Admin Dose 600 MG; Start 09/29/16 at 21:00 Amikacin Sulfate (Amikacin Iv Per Pharmacy) AMIKACIN PER PHARMACY NOTE XX ; Start 09/29/16 at 15:30 Phenol (Cepastat Lozenge) 1 lozenge Q2H PRN MT SORE THROAT Last administered on 10/02/16 12:48; Admin Dose 1 LOZENGE; Start 10/01/16 at 19:00 IV Flush (NS 10 ml) 10 ml PRN PRN IV IV PROTOCOL; Start 10/02/16 at 19:00 Lactobacillus Acidophilus (Florajen3 Capsule) 1 each TID PO Last administered on 10/19/16 13:40; Admin Dose 1 EACH; Start 10/03/16 at 21:00 Hydromorphone HCl (Dilaudid) 0.5 mg Q4H PRN IV PAIN Last administered on 02:07; Admin Dose 0.5 MG; Start 10/06/16 at 18:30 Promethazine HCl/ Codeine (Phenergan/ Codeine) 10 ml BID PRN PO COUGH; Start at 20:30 Morphine Sulfate 60 mg 60 mg Q6 PO Last administered on 10/19/16 11:26; Admin Dose 60 MG; Start 10/09/16 at 12:00 Metronidazole 250 mg/N/A 50 ml @ 50 mls/hr Q8 IVPB Last administered on 13:43; Admin Dose 50 MLS/HR; Start 10/10/16 at 22:00 Amikacin Sulfate/ Dextrose (Amikacin/D5W) 102.8 ml @ 102.8 mls/ hr Q36H IVPB Last administered on 10/19/16 10:01; Admin Dose 102.8 MLS/HR; Start 10/14/16 at 21:00 Sodium Chloride (Nacl) 1 gm TID PO Last administered on 10/19/16 13:41; Admin Dose 1 GM; Start 10/16/16 at 17:00 Fluconazole (Diflucan) 100 mg DAILY PO Last administered on 10/19/16 10:02; Admin Dose 100 MG; Start 10/17/16 at 13:00 DIONNE SAUCEDA MD October 19, 2016 18:21
[2016-10-19] MEDS ORDERED: POTASSIUM CHLORIDE 20 MEQ in SOD CHLORIDE 0.9% 100 ML IVPB ONE (19:30)
[2016-10-19] MEDS: ATORVASTATIN 20 MG TAB PO SCH (20:52)
[2016-10-19] MEDS: ACETAMINOPHEN 325 MG TAB PO PRN (20:54)
[2016-10-19 21:43] VITALS: BP 101/68; RESP 16
--- NOTE | 2016-10-20 00:46 | CONS ---
Date/Time of Note Date/Time of Note DATE: 10/18/16 TIME: 22:23 Assessment/Plan Assessment/Plan Chief Complaint/Hosp Course 1. Multiple decubitus ulcers with debris -Offload -Optimize nutrition -Vitamin C -Local care -Debridement sacrococcyx prn 2. UTI s/p abx 3. 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 Acute on chronic diastolic heart failure -Judicious fluid management -Cardiac optimization 5. Hypertension -Diet and medication control 6. Chronic urinary retention with George 7. Depression. -Medical management 8. Hypothyroidism by history. -Synthroid 9. Anemia of chronic disease in addition to iron deficiency anemia. -Continue iron supplements. -Transfusion when necessary 10. Chronic pain syndrome. Continue pain management. Thank you very much for consulting me in this patient's care, Late entry 10/18 Problems: Consultation Date/Type/Reason Admit Date/Time Sep 26, 2016 at 20:07 Date of Consultation: October 19, 2016 Type of Consultation: Gen Surgical Reason for Consultation Decubitus ulcers Referring Provider: DRE LOBATO MD Hx of Present Illness Gumaro García is a 66yo female with significant pmhx re-admitted with hypotension, leukocytosis and anemia. She has multiple decubitus ulcerations. There is no current fevers, chills, nausea, vomiting, or abdominal pain. No abnormal vaginal discharge. No bloating. Surgical consult is obtained further evaluation and treatment. Constitutional: other (cachexic), requiring O2 Eyes: no complaints ENT: no complaints Respiratory: no complaints Cardiovascular: no complaints Gastrointestinal: no complaints Genitourinary: no complaints Musculoskeletal: back pain Skin: skin lesions Neurologic: no complaints Endocrine: polyuria Psychological: nl mood/affect Past Medical History Left lung squamous cell carcinoma in need of radiation and chemotherapy Chronic obstructive pulmonary disease Depression Hypothyroidism Chronic pain syndrome Deconditioning Hypertension Iron deficiency anemia Urinary retention Recent MRSA of nares and urinary tract infection Mild anasarca Sigmoid colonic diverticulosis Sepsis TIA Non-ST elevation MT Multiple decubitus ulcerations Tobacco dependence Past Surgical History Back surgery Cholecystectomy Wound debridement Family History Significant Family History: no pertinent family hx Social History Alcohol Use: none Smoking Status: Smoker,current status unk Drug Use: none Exam/Review of Systems Vital Signs Vitals Vital Signs Date Time Temp Pulse Resp B/P Pulse Ox O2 Delivery O2 Flow Rate FiO2 5/4/17 22:39 Nasal Cannula 2.0 10/19/16 21:43 98.0 104 16 101/68 93 Intake and Output 10/19/16 10/19/16 10/20/16 15:00 23:00 07:00 Intake Total 150 ml 1020 ml Output Total 725 ml Balance 150 ml 295 ml Exam GENERAL: Elderly, cachectic, no acute distress. HEENT: Head is atraumatic, normocephalic. Pupils equal, round, reactive to light and accommodation. Oral mucosa is pink and moist. NECK: Supple, no cervical lymphadenopathy LUNGS: Normal respiratory effort CARDIAC: S1 and S2. ABDOMEN: Flat, soft and nondistended. Nontender. No rebound or guarding. SKIN: Multiple decubitus wounds/ulcers buttock sacrum and right lower extremity EXTREMITIES: No edema. Pulses equal bilaterally, 2+. NEUROLOGICAL: Responsive VASCULAR: Refill is less than 2 seconds Results Result Diagram: 10/18/16 0515 10/18/16 0515 Results 24 hrs Laboratory Tests Test 10/19/16 08:10 10/19/16 12:45 Amikacin Level Trough Lab Scanned Report REFERENCE LAB Medications Medications Current Medications Ondansetron HCl (Zofran Inj) 4 mg Q6 PRN IV NAUSEA AND/OR VOMITING; Start 09/26 at 22:30 Acetaminophen (Tylenol Tab) 650 mg Q6H PRN PO PAIN AND OR ELEVATED TEMP Last administered on 10/19/16 20:54; Admin Dose 650 MG; Start 09/26/16 at 23:00 Alprazolam (Xanax) 0.5 mg Q12 PRN PO ANXIETY Last administered on 10/04/16 20: 29; Admin Dose 0.5 MG; Start 09/26/16 at 23:00 Ascorbic Acid (Vitamin C) 500 mg BID PO Last administered on 10/19/16 20:52; Admin Dose 500 MG; Start 09/27/16 at 09:00 Atorvastatin Calcium (Lipitor) 20 mg QHS PO Last administered on 10/19/16 20:52 ; Admin Dose 20 MG; Start 09/27/16 at 21:00 Diazepam (Valium) 10 mg DAILY PO Last administered on 10/19/16 10:02; Admin Dose 10 MG; Start 09/27/16 at 09:00 Docusate Sodium (Colace) 100 mg Q12H PRN PO CONSTIPATION; Start 09/26/16 at 23: 00 Duloxetine HCl (Cymbalta) 20 mg DAILY PO Last administered on 10/19/16 10:02; Admin Dose 20 MG; Start 09/27/16 at 09:00 Gabapentin (Neurontin) 300 mg TID PO Last administered on 10/19/16 20:52; Admin Dose 300 MG; Start 09/27/16 at 09:00 Zolpidem Tartrate (Ambien) 5 mg QHS PRN PO INSOMNIA Last administered on 02:35; Admin Dose 5 MG; Start 09/26/16 at 23:00 Collagenase (Santyl) 1 applic DAILY TOP Last administered on 10/18/16 08:11; Admin Dose 1 APPLIC; Start 09/27/16 at 09:00 Collagenase (Santyl) 1 applic PRN PRN TOP SOILED OR DISLODGED DRESSING; Start 09/27/16 at 05:00 Lansoprazole (Prevacid) 30 mg DAILY@06 GTB Last administered on 10/19/16 05:19 ; Admin Dose 30 MG; Start 09/28/16 at 06:00 Mupirocin (Bactroban) 1 applic BID TOP Last administered on 10/19/16 20:53; Admin Dose 1 APPLIC; Start 09/28/16 at 21:00 Cromolyn Sodium (Nasalcrom) 1 spray QID NASAL Last administered on 10/19/16 20: 53; Admin Dose 1 SPRAY; Start 09/29/16 at 11:02 Linezolid (Zyvox) 600 mg BID PO Last administered on 10/19/16 20:52; Admin Dose 600 MG; Start 09/29/16 at 21:00 Amikacin Sulfate (Amikacin Iv Per Pharmacy) AMIKACIN PER PHARMACY NOTE XX ; Start 09/29/16 at 15:30 Phenol (Cepastat Lozenge) 1 lozenge Q2H PRN MT SORE THROAT Last administered on 10/02/16 12:48; Admin Dose 1 LOZENGE; Start 10/01/16 at 19:00 IV Flush (NS 10 ml) 10 ml PRN PRN IV IV PROTOCOL; Start 10/02/16 at 19:00 Lactobacillus Acidophilus (Florajen3 Capsule) 1 each TID PO Last administered on 10/19/16 20:52; Admin Dose 1 EACH; Start 10/03/16 at 21:00 Hydromorphone HCl (Dilaudid) 0.5 mg Q4H PRN IV PAIN Last administered on 02:07; Admin Dose 0.5 MG; Start 10/06/16 at 18:30 Promethazine HCl/ Codeine (Phenergan/ Codeine) 10 ml BID PRN PO COUGH; Start at 20:30 Morphine Sulfate 60 mg 60 mg Q6 PO Last administered on 10/19/16 11:26; Admin Dose 60 MG; Start 10/09/16 at 12:00 Metronidazole 250 mg/N/A 50 ml @ 50 mls/hr Q8 IVPB Last administered on 22:57; Admin Dose 50 MLS/HR; Start 10/10/16 at 22:00 Amikacin Sulfate/ Dextrose (Amikacin/D5W) 102.8 ml @ 102.8 mls/ hr Q36H IVPB Last administered on 10/19/16 10:01; Admin Dose 102.8 MLS/HR; Start 10/14/16 at 21:00 Sodium Chloride (Nacl) 1 gm TID PO Last administered on 10/19/16 20:52; Admin Dose 1 GM; Start 10/16/16 at 17:00 Fluconazole (Diflucan) 100 mg DAILY PO Last administered on 10/19/16 10:02; Admin Dose 100 MG; Start 10/17/16 at 13:00 ZAK POSEY MD October 20, 2016 00:33
--- NOTE | 2016-10-20 00:50 | PN ---
Date/Time of Note Date/Time of Note DATE: 10/19/16 TIME: 22:46 Assessment/Plan Lines/Catheters IV Catheter Type (from Nrs): PICC Line George in Place (from Nrs): Yes Assessment/Plan Chief Complaint/Hosp Course 1. Multiple decubitus ulcers with debris -Offload -Optimize nutrition -Vitamin C -Local care -Debridement sacrococcyx prn 2. UTI s/p abx 3. 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 Acute on chronic diastolic heart failure -Judicious fluid management -Cardiac optimization 5. Hypertension -Diet and medication control 6. Chronic urinary retention with George 7. Depression. -Medical management 8. Hypothyroidism by history. -Synthroid 9. Anemia of chronic disease in addition to iron deficiency anemia. -Continue iron supplements. -Transfusion when necessary 10. Chronic pain syndrome. Continue pain management. Thank you very much for consulting me in this patient's care, Late entry 10/19 Problems: Subjective 24 Hr Interval Summary There is no current fevers, chills, nausea, vomiting, or abdominal pain. No abnormal vaginal discharge. No bloating. No cough, sz, bloating. No roblse/dizzy/ visual or neuro changes. Exam/Review of Systems Vital Signs Vitals Vital Signs Date Time Temp Pulse Resp B/P Pulse Ox O2 Delivery O2 Flow Rate FiO2 10/19/16 22:39 Nasal Cannula 2.0 10/19/16 21:43 98.0 104 16 101/68 93 Intake and Output 10/19/16 10/19/16 10/20/16 15:00 23:00 07:00 Intake Total 150 ml 1020 ml Output Total 725 ml Balance 150 ml 295 ml Exam Free Text/Dictation GENERAL: Elderly, cachectic, no acute distress. HEENT: Head is atraumatic, normocephalic. Pupils equal, round, reactive to light and accommodation. Oral mucosa is pink and moist. NECK: Supple, no cervical lymphadenopathy LUNGS: Normal respiratory effort CARDIAC: S1 and S2. ABDOMEN: Flat, soft and nondistended. Nontender. No rebound or guarding. SKIN: Multiple decubitus wounds/ulcers buttock sacrum and right lower extremity EXTREMITIES: No edema. Pulses equal bilaterally, 2+. NEUROLOGICAL: Responsive VASCULAR: Refill is less than 2 seconds Results Result Diagram: 10/18/16 0515 10/18/16 0515 ZAK POSEY MD October 20, 2016 00:50
[2016-10-20] MEDS: HYDROmorphONE 1 MG/ML SYG IV PRN ×3 (01:50→21:10)
[2016-10-20 05:21] LABS: ADD SCAN DIFF NO
[2016-10-20 05:33] LABS: ABNORMAL IP MESSAGE 1; BASOPHIL # 0.1 10^3/ul (0.0-0.1); BASOPHILS % 0.5 % (0.0-2.0); EOSINOPHILS # 0.6 10^3/ul (0.0-0.5); EOSINOPHILS % 3.8 % (0.0-7.0); HEMATOCRIT 28.3 % (37.0-47.0); HEMOGLOBIN 8.5 g/dl (12.0-16.0); LYMPHOCYTES # 1.9 10^3/ul (0.8-2.9); LYMPHOCYTES % 12.6 % (15.0-51.0); MEAN CORPUSCULAR HEMOGLOBIN 25.4 pg (29.0-33.0); MEAN CORPUSCULAR VOLUME 84.5 fl (82.0-101.0); MEAN PLATELET VOLUME 8.9 fl (7.4-10.4); MONOCYTE # 1.9 10^3/ul (0.3-0.9); MONOCYTES % 12.5 % (0.0-11.0); NEUTROPHIL # 10.6 10^3/ul (1.6-7.5); NEUTROPHILS % 69.9 % (39.0-77.0); PLATELET COUNT 328 10^3/UL (140-415); RED BLOOD COUNT 3.35 10^6/ul (4.20-5.40); RED CELL DISTRIBUTION WIDTH 17.7 % (11.5-14.5); WHITE BLOOD COUNT 15.1 10^3/ul (4.8-10.8)
[2016-10-20] MEDS: metroNIDAZOLE 500 MG/NS (PMX) 250 MG in EVAC CONTAINER 1 BOTTLE IVPB SCH ×4 (05:33→21:12)
[2016-10-20] MEDS: morphine (ER) 30 MG TAB PO SCH ×3 (05:33→18:27)
[2016-10-20] MEDS: LEVOTHYROXINE 125 MCG TAB PO SCH (05:33)
[2016-10-20] MEDS: LANSOPRAZOLE 30 MG CAP GTB SCH (05:33)
[2016-10-20 05:46] LABS: CALCIUM 8.2 mg/dl (8.4-10.2); CREATININE 0.46 mg/dl (0.44-1.00); POTASSIUM 3.9 mmol/L (3.5-5.1)
[2016-10-20 07:40] VITALS: BP 99/70; RESP 20
[2016-10-20] MEDS: COLLAGENASE 30 GM TUBE TOP SCH (09:00)
[2016-10-20] MEDS: CROMOLYN 4% 26ML NAS INH NASAL SCH ×4 (09:09→21:11)
[2016-10-20] MEDS: L ACIDOPHIL/B LACTIS/B LONGUM CAPSULE PO SCH ×3 (09:10→21:00)
[2016-10-20] MEDS: ASCORBIC ACID 500 MG TAB PO SCH ×2 (09:10→21:10)
[2016-10-20] MEDS: GABAPENTIN 300 MG CAP PO SCH ×3 (09:10→21:11)
[2016-10-20] MEDS: SODIUM CHLORIDE 1 GM TAB PO SCH ×3 (09:10→21:10)
[2016-10-20] MEDS: DIAZEPAM 5 MG TAB PO SCH (09:10)
[2016-10-20] MEDS: DULOXETINE 20 MG CAP DR PO SCH (09:10)
[2016-10-20] MEDS: FLUCONAZOLE 100 MG TAB PO SCH (09:10)
[2016-10-20] MEDS: ZYVOX 600 MG TAB PO SCH ×2 (09:10→21:11)
[2016-10-20] MEDS: MUPIROCIN 2% 22 GM OINT TOP SCH ×2 (09:11→21:11)
--- NOTE | 2016-10-20 11:10 | PN ---
Date/Time of Note Date/Time of Note DATE: 10/20/16 TIME: 11:08 Assessment/Plan VTE Prophylaxis VTE Prophylaxis Intervention: SCD's Lines/Catheters IV Catheter Type (from [facility]): PICC Line Central line still needed: Yes Urinary Cath still in place: Yes Reason Cath still needed: urinary retention Assessment/Plan Chief Complaint/Hosp Course ASSESSMENT AND PLAN: - Recurrent sepsis, resolving. Dr. Coleman is following in infection disease consultation. Continue antibiotics per ID. - Persistent leukocytosis secondary to multiple wounds and malignancy. - Hyponatremia, Dr. Zapata is following in nephrology consultation. - Polymicrobial urinary tract infection, s/p treatment. - Left lung squamous cell carcinoma. Patient is not a candidate for chemotherapy. - Chronic obstructive pulmonary disease. Continue breathing treatment. - Multiple decubitus ulcers with history of debridement. Continue current wound care. Wound culture is growing polymicrobial organisms. Continue antibiotics per ID. - Methicillin-resistant Staphylococcus aureus nares colonization. - Cachexia. Optimize nutrition. - Dysphagia with G-tube placement. Continue G-tube feeding. Aspiration precaution. - Chronic urinary retention. Continue George catheter. - Hypothyroidism. TSH is within normal limits. Continue Synthroid. - Anemia of chronic disease. Continue to monitor hemoglobin and hematocrit. Blood transfusion as needed. - Right hand swelling, resolving. CT scan of the right hand is negative. Further recommendations based on clinical course. Plan of care discussed with Dr. Dozier. Problems: Exam/Review of Systems Vital Signs Vitals Vital Signs Date Time Temp Pulse Resp B/P Pulse Ox O2 Delivery O2 Flow Rate FiO2 10/20/16 07:40 98.8 76 20 99/70 96 10/19/16 22:39 Nasal Cannula 2.0 Intake and Output 10/19/16 10/19/16 10/20/16 15:00 23:00 07:00 Intake Total 150 ml 1130 ml 1120 ml Output Total 725 ml 760 ml Balance 150 ml 405 ml 360 ml Exam Constitutional: alert, oriented Psych: no complaints Head: atraumatic, normocephalic Eyes: nl conjunctiva ENMT: nl external ears & nose Neck: non-tender, supple Respiratory: clear to auscultation, normal air movement Cardiovascular: nl pulses, regular rate and rhythm Gastrointestinal: non-tender, other (G-tube), soft Musculoskeletal: nl extremities to inspection Extremities: normal pulses Neurological: TURBINE OPERATOR II-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 Results Result Diagram: 10/20/16 0425 10/20/165 Results 24 hrs Laboratory Tests Test 10/19/16 12:45 10/20/16 04:25 Lab Scanned Report REFERENCE LAB White Blood Count 15.1 H Red Blood Count 3.35 L Hemoglobin 8.5 L Hematocrit 28.3 L Mean Corpuscular Volume 84.5 Mean Corpuscular Hemoglobin 25.4 L Mean Corpuscular Hemoglobin Concent 30.0 L Red Cell Distribution Width 17.7 H Platelet Count 328 Mean Platelet Volume 8.9 Neutrophils % 69.9 Lymphocytes % 12.6 L Monocytes % 12.5 H Eosinophils % 3.8 Basophils % 0.5 Nucleated Red Blood Cells % 0.0 Neutrophils # 10.6 H Lymphocytes # 1.9 Monocytes # 1.9 H Eosinophils # 0.6 H Basophils # 0.1 Nucleated Red Blood Cells # 0.0 Sodium Level 129 L Potassium Level 3.9 Chloride Level 92 L Carbon Dioxide Level 32 H Anion Gap 9 Blood Urea Nitrogen 18 Creatinine 0.46 Glucose Level 119 Calcium Level 8.2 L Medications Medications Current Medications Ondansetron HCl (Zofran Inj) 4 mg Q6 PRN IV NAUSEA AND/OR VOMITING; Start 09/26 at 22:30 Acetaminophen (Tylenol Tab) 650 mg Q6H PRN PO PAIN AND OR ELEVATED TEMP Last administered on 10/19/16 20:54; Admin Dose 650 MG; Start 09/26/16 at 23:00 Alprazolam (Xanax) 0.5 mg Q12 PRN PO ANXIETY Last administered on 10/04/16 20: 29; Admin Dose 0.5 MG; Start 09/26/16 at 23:00 Ascorbic Acid (Vitamin C) 500 mg BID PO Last administered on 10/20/16 09:10; Admin Dose 500 MG; Start 09/27/16 at 09:00 Atorvastatin Calcium (Lipitor) 20 mg QHS PO Last administered on 10/19/16 20:52 ; Admin Dose 20 MG; Start 09/27/16 at 21:00 Diazepam (Valium) 10 mg DAILY PO Last administered on 10/20/16 09:10; Admin Dose 10 MG; Start 09/27/16 at 09:00 Docusate Sodium (Colace) 100 mg Q12H PRN PO CONSTIPATION; Start 09/26/16 at 23: 00 Duloxetine HCl (Cymbalta) 20 mg DAILY PO Last administered on 10/20/16 09:10; Admin Dose 20 MG; Start 09/27/16 at 09:00 Gabapentin (Neurontin) 300 mg TID PO Last administered on 10/20/16 09:10; Admin Dose 300 MG; Start 09/27/16 at 09:00 Zolpidem Tartrate (Ambien) 5 mg QHS PRN PO INSOMNIA Last administered on 02:35; Admin Dose 5 MG; Start 09/26/16 at 23:00 Collagenase (Santyl) 1 applic DAILY TOP Last administered on 10/18/16 08:11; Admin Dose 1 APPLIC; Start 09/27/16 at 09:00 Collagenase (Santyl) 1 applic PRN PRN TOP SOILED OR DISLODGED DRESSING; Start 09/27/16 at 05:00 Lansoprazole (Prevacid) 30 mg DAILY@06 GTB Last administered on 10/20/16 05:33 ; Admin Dose 30 MG; Start 09/28/16 at 06:00 Mupirocin (Bactroban) 1 applic BID TOP Last administered on 10/20/16 09:11; Admin Dose 1 APPLIC; Start 09/28/16 at 21:00 Cromolyn Sodium (Nasalcrom) 1 spray QID NASAL Last administered on 10/20/16 09: 09; Admin Dose 1 SPRAY; Start 09/29/16 at 11:02 Linezolid (Zyvox) 600 mg BID PO Last administered on 10/20/16 09:10; Admin Dose 600 MG; Start 09/29/16 at 21:00 Amikacin Sulfate (Amikacin Iv Per Pharmacy) AMIKACIN PER PHARMACY NOTE XX ; Start 09/29/16 at 15:30 Phenol (Cepastat Lozenge) 1 lozenge Q2H PRN MT SORE THROAT Last administered on 10/02/16 12:48; Admin Dose 1 LOZENGE; Start 10/01/16 at 19:00 IV Flush (NS 10 ml) 10 ml PRN PRN IV IV PROTOCOL; Start 10/02/16 at 19:00 Lactobacillus Acidophilus (Florajen3 Capsule) 1 each TID PO Last administered on 10/20/16 09:10; Admin Dose 1 EACH; Start 10/03/16 at 21:00 Hydromorphone HCl (Dilaudid) 0.5 mg Q4H PRN IV PAIN Last administered on 01:50; Admin Dose 0.5 MG; Start 10/06/16 at 18:30 Promethazine HCl/ Codeine (Phenergan/ Codeine) 10 ml BID PRN PO COUGH; Start at 20:30 Morphine Sulfate 60 mg 60 mg Q6 PO Last administered on 10/20/16 05:33; Admin Dose 60 MG; Start 10/09/16 at 12:00 Metronidazole 250 mg/N/A 50 ml @ 50 mls/hr Q8 IVPB Last administered on 05:33; Admin Dose 50 MLS/HR; Start 10/10/16 at 22:00 Amikacin Sulfate/ Dextrose (Amikacin/D5W) 102.8 ml @ 102.8 mls/ hr Q36H IVPB Last administered on 10/19/16 10:01; Admin Dose 102.8 MLS/HR; Start 10/14/16 at 21:00 Sodium Chloride (Nacl) 1 gm TID PO Last administered on 10/20/16 09:10; Admin Dose 1 GM; Start 10/16/16 at 17:00 Fluconazole (Diflucan) 100 mg DAILY PO Last administered on 10/20/16 09:10; Admin Dose 100 MG; Start 10/17/16 at 13:00 REBECCA ISLAS October 20, 2016 11:10
--- NOTE | 2016-10-20 12:11 | CONS ---
Date/Time of Note Date/Time of Note DATE: 10/20/16 TIME: 12:10 Assessment/Plan Assessment/Plan Additional Assessment/Plan SIRS Intermittent hypotension Diastolic congestive heart failure, compensated Pulmonary hypertension Preserved ejection fraction Tricuspid valve regurgitation Lung cancer -Blood pressure trend remains stable, would continue to hold any antihypertensives at the current time. No new cardiac orders at the current time Consultation Date/Type/Reason Admit Date/Time Sep 26, 2016 at 20:07 Type of Consultation: cv Referring Provider: DRE LOBATO MD 24 HR Interval Summary Free Text/Dictation Patient seen and examined Exam/Review of Systems Vital Signs Vitals Vital Signs Date Time Temp Pulse Resp B/P Pulse Ox O2 Delivery O2 Flow Rate FiO2 10/20/16 07:40 98.8 76 20 99/70 96 10/19/16 22:39 Nasal Cannula 2.0 Intake and Output 10/19/16 10/19/16 10/20/16 15:00 23:00 07:00 Intake Total 150 ml 1130 ml 1120 ml Output Total 725 ml 760 ml Balance 150 ml 405 ml 360 ml Exam Sleeping but arousable, no apparent distress Head: normocephalic Respiratory: other (Coarse breath sounds bilaterally, no wheezing) Cardiovascular: other (S1-S2 heard), regular rate and rhythm Gastrointestinal: bowel sounds, non-tender, soft Extremities: other (No edema) Results Result Diagram: 10/20/16 0425 10/20/16 0425 Results 24 hrs Laboratory Tests Test 10/19/16 12:45 10/20/16 04:25 Lab Scanned Report REFERENCE LAB White Blood Count 15.1 H Red Blood Count 3.35 L Hemoglobin 8.5 L Hematocrit 28.3 L Mean Corpuscular Volume 84.5 Mean Corpuscular Hemoglobin 25.4 L Mean Corpuscular Hemoglobin Concent 30.0 L Red Cell Distribution Width 17.7 H Platelet Count 328 Mean Platelet Volume 8.9 Neutrophils % 69.9 Lymphocytes % 12.6 L Monocytes % 12.5 H Eosinophils % 3.8 Basophils % 0.5 Nucleated Red Blood Cells % 0.0 Neutrophils # 10.6 H Lymphocytes # 1.9 Monocytes # 1.9 H Eosinophils # 0.6 H Basophils # 0.1 Nucleated Red Blood Cells # 0.0 Sodium Level 129 L Potassium Level 3.9 Chloride Level 92 L Carbon Dioxide Level 32 H Anion Gap 9 Blood Urea Nitrogen 18 Creatinine 0.46 Glucose Level 119 Calcium Level 8.2 L Medications Medications Current Medications Ondansetron HCl (Zofran Inj) 4 mg Q6 PRN IV NAUSEA AND/OR VOMITING; Start 09/26 at 22:30 Acetaminophen (Tylenol Tab) 650 mg Q6H PRN PO PAIN AND OR ELEVATED TEMP Last administered on 10/19/16 20:54; Admin Dose 650 MG; Start 09/26/16 at 23:00 Alprazolam (Xanax) 0.5 mg Q12 PRN PO ANXIETY Last administered on 10/04/16 20: 29; Admin Dose 0.5 MG; Start 09/26/16 at 23:00 Ascorbic Acid (Vitamin C) 500 mg BID PO Last administered on 10/20/16 09:10; Admin Dose 500 MG; Start 09/27/16 at 09:00 Atorvastatin Calcium (Lipitor) 20 mg QHS PO Last administered on 10/19/16 20:52 ; Admin Dose 20 MG; Start 09/27/16 at 21:00 Diazepam (Valium) 10 mg DAILY PO Last administered on 10/20/16 09:10; Admin Dose 10 MG; Start 09/27/16 at 09:00 Docusate Sodium (Colace) 100 mg Q12H PRN PO CONSTIPATION; Start 09/26/16 at 23: 00 Duloxetine HCl (Cymbalta) 20 mg DAILY PO Last administered on 10/20/16 09:10; Admin Dose 20 MG; Start 09/27/16 at 09:00 Gabapentin (Neurontin) 300 mg TID PO Last administered on 10/20/16 09:10; Admin Dose 300 MG; Start 09/27/16 at 09:00 Zolpidem Tartrate (Ambien) 5 mg QHS PRN PO INSOMNIA Last administered on 02:35; Admin Dose 5 MG; Start 09/26/16 at 23:00 Collagenase (Santyl) 1 applic DAILY TOP Last administered on 10/18/16 08:11; Admin Dose 1 APPLIC; Start 09/27/16 at 09:00 Collagenase (Santyl) 1 applic PRN PRN TOP SOILED OR DISLODGED DRESSING; Start 09/27/16 at 05:00 Lansoprazole (Prevacid) 30 mg DAILY@06 GTB Last administered on 10/20/16 05:33 ; Admin Dose 30 MG; Start 09/28/16 at 06:00 Mupirocin (Bactroban) 1 applic BID TOP Last administered on 10/20/16 09:11; Admin Dose 1 APPLIC; Start 09/28/16 at 21:00 Cromolyn Sodium (Nasalcrom) 1 spray QID NASAL Last administered on 10/20/16 09: 09; Admin Dose 1 SPRAY; Start 09/29/16 at 11:02 Linezolid (Zyvox) 600 mg BID PO Last administered on 10/20/16 09:10; Admin Dose 600 MG; Start 09/29/16 at 21:00 Amikacin Sulfate (Amikacin Iv Per Pharmacy) AMIKACIN PER PHARMACY NOTE XX ; Start 09/29/16 at 15:30 Phenol (Cepastat Lozenge) 1 lozenge Q2H PRN MT SORE THROAT Last administered on 10/02/16 12:48; Admin Dose 1 LOZENGE; Start 10/01/16 at 19:00 IV Flush (NS 10 ml) 10 ml PRN PRN IV IV PROTOCOL; Start 10/02/16 at 19:00 Lactobacillus Acidophilus (Florajen3 Capsule) 1 each TID PO Last administered on 10/20/16 09:10; Admin Dose 1 EACH; Start 10/03/16 at 21:00 Hydromorphone HCl (Dilaudid) 0.5 mg Q4H PRN IV PAIN Last administered on 01:50; Admin Dose 0.5 MG; Start 10/06/16 at 18:30 Promethazine HCl/ Codeine (Phenergan/ Codeine) 10 ml BID PRN PO COUGH; Start at 20:30 Morphine Sulfate 60 mg 60 mg Q6 PO Last administered on 10/20/16 05:33; Admin Dose 60 MG; Start 10/09/16 at 12:00 Metronidazole 250 mg/N/A 50 ml @ 50 mls/hr Q8 IVPB Last administered on 05:33; Admin Dose 50 MLS/HR; Start 10/10/16 at 22:00 Amikacin Sulfate/ Dextrose (Amikacin/D5W) 102.8 ml @ 102.8 mls/ hr Q36H IVPB Last administered on 10/19/16 10:01; Admin Dose 102.8 MLS/HR; Start 10/14/16 at 21:00 Sodium Chloride (Nacl) 1 gm TID PO Last administered on 10/20/16 09:10; Admin Dose 1 GM; Start 10/16/16 at 17:00 Fluconazole (Diflucan) 100 mg DAILY PO Last administered on 10/20/16 09:10; Admin Dose 100 MG; Start 10/17/16 at 13:00 Artemio Tipton DO October 20, 2016 12:11
--- NOTE | 2016-10-20 13:50 | CONS ---
Date/Time of Note Date/Time of Note DATE: 10/20/16 TIME: 13:50 Assessment/Plan Assessment/Plan Chief Complaint/Hosp Course SUBJECTIVE: No events overnight. The patient looks comfortable, no fevers. ANTIMICROBIALS: 1. Amikacin. 2. Fluconazole. 3. Flagyl. 4. Zyvox. 5. Topical Bactroban to nares. INDWELLINGS: PEG, George, PICC line. PHYSICAL EXAMINATION: GENERAL: A cachectic elderly woman who is awake, in no distress. HEENT: Head atraumatic, normocephalic. Sclerae anicteric. Buccal mucosa dry. NECK: Supple. CHEST: Rise symmetrical. Breath sounds clear, diminished to bases. HEART: S1, S2. ABDOMEN: Soft, bowel sounds present. EXTREMITIES: Without cyanosis. ASSESSMENT: 1. Systemic inflammatory response syndrome with persistent leukocytosis secondary to infected wounds, and possibly secondary to malignancy. 2. Lung cancer. 3. Cachexia. 4. Sacral decubitus with exposed bone and culture growing multidrug resistant organisms, status post debridement with wound VAC application. 5. History of Clostridium difficile, pneumonia and urinary tract infection. 6. Oral thrush. PLAN: The patient remains stable. Continue present care, antibiotics, local wound care. DW staff Problems: Consultation Date/Type/Reason Admit Date/Time Sep 26, 2016 at 20:07 Type of Consultation: ID Referring Provider: DRE LOBATO MD Exam/Review of Systems Vital Signs Vitals Vital Signs Date Time Temp Pulse Resp B/P Pulse Ox O2 Delivery O2 Flow Rate FiO2 10/20/16 07:40 98.8 76 20 99/70 96 10/19/16 22:39 Nasal Cannula 2.0 Intake and Output 10/19/16 10/19/16 10/20/16 15:00 23:00 07:00 Intake Total 150 ml 1130 ml 1120 ml Output Total 725 ml 760 ml Balance 150 ml 405 ml 360 ml Results Result Diagram: 10/20/16 0425 10/20/16 0425 Results 24 hrs Laboratory Tests Test 10/20/16 04:25 White Blood Count 15.1 H Red Blood Count 3.35 L Hemoglobin 8.5 L Hematocrit 28.3 L Mean Corpuscular Volume 84.5 Mean Corpuscular Hemoglobin 25.4 L Mean Corpuscular Hemoglobin Concent 30.0 L Red Cell Distribution Width 17.7 H Platelet Count 328 Mean Platelet Volume 8.9 Neutrophils % 69.9 Lymphocytes % 12.6 L Monocytes % 12.5 H Eosinophils % 3.8 Basophils % 0.5 Nucleated Red Blood Cells % 0.0 Neutrophils # 10.6 H Lymphocytes # 1.9 Monocytes # 1.9 H Eosinophils # 0.6 H Basophils # 0.1 Nucleated Red Blood Cells # 0.0 Sodium Level 129 L Potassium Level 3.9 Chloride Level 92 L Carbon Dioxide Level 32 H Anion Gap 9 Blood Urea Nitrogen 18 Creatinine 0.46 Glucose Level 119 Calcium Level 8.2 L Medications Medications Current Medications Ondansetron HCl (Zofran Inj) 4 mg Q6 PRN IV NAUSEA AND/OR VOMITING; Start 09/26 at 22:30 Acetaminophen (Tylenol Tab) 650 mg Q6H PRN PO PAIN AND OR ELEVATED TEMP Last administered on 10/19/16 20:54; Admin Dose 650 MG; Start 09/26/16 at 23:00 Alprazolam (Xanax) 0.5 mg Q12 PRN PO ANXIETY Last administered on 10/04/16 20: 29; Admin Dose 0.5 MG; Start 09/26/16 at 23:00 Ascorbic Acid (Vitamin C) 500 mg BID PO Last administered on 10/20/16 09:10; Admin Dose 500 MG; Start 09/27/16 at 09:00 Atorvastatin Calcium (Lipitor) 20 mg QHS PO Last administered on 10/19/16 20:52 ; Admin Dose 20 MG; Start 09/27/16 at 21:00 Diazepam (Valium) 10 mg DAILY PO Last administered on 10/20/16 09:10; Admin Dose 10 MG; Start 09/27/16 at 09:00 Docusate Sodium (Colace) 100 mg Q12H PRN PO CONSTIPATION; Start 09/26/16 at 23: 00 Duloxetine HCl (Cymbalta) 20 mg DAILY PO Last administered on 10/20/16 09:10; Admin Dose 20 MG; Start 09/27/16 at 09:00 Gabapentin (Neurontin) 300 mg TID PO Last administered on 10/20/16 13:10; Admin Dose 300 MG; Start 09/27/16 at 09:00 Zolpidem Tartrate (Ambien) 5 mg QHS PRN PO INSOMNIA Last administered on 02:35; Admin Dose 5 MG; Start 09/26/16 at 23:00 Collagenase (Santyl) 1 applic DAILY TOP Last administered on 10/18/16 08:11; Admin Dose 1 APPLIC; Start 09/27/16 at 09:00 Collagenase (Santyl) 1 applic PRN PRN TOP SOILED OR DISLODGED DRESSING; Start 09/27/16 at 05:00 Lansoprazole (Prevacid) 30 mg DAILY@06 GTB Last administered on 10/20/16 05:33 ; Admin Dose 30 MG; Start 09/28/16 at 06:00 Mupirocin (Bactroban) 1 applic BID TOP Last administered on 10/20/16 09:11; Admin Dose 1 APPLIC; Start 09/28/16 at 21:00 Cromolyn Sodium (Nasalcrom) 1 spray QID NASAL Last administered on 10/20/16 09: 09; Admin Dose 1 SPRAY; Start 09/29/16 at 11:02 Linezolid (Zyvox) 600 mg BID PO Last administered on 10/20/16 09:10; Admin Dose 600 MG; Start 09/29/16 at 21:00 Amikacin Sulfate (Amikacin Iv Per Pharmacy) AMIKACIN PER PHARMACY NOTE XX ; Start 09/29/16 at 15:30 Phenol (Cepastat Lozenge) 1 lozenge Q2H PRN MT SORE THROAT Last administered on 10/02/16 12:48; Admin Dose 1 LOZENGE; Start 10/01/16 at 19:00 IV Flush (NS 10 ml) 10 ml PRN PRN IV IV PROTOCOL; Start 10/02/16 at 19:00 Lactobacillus Acidophilus (Florajen3 Capsule) 1 each TID PO Last administered on 10/20/16 13:10; Admin Dose 1 EACH; Start 10/03/16 at 21:00 Hydromorphone HCl (Dilaudid) 0.5 mg Q4H PRN IV PAIN Last administered on 01:50; Admin Dose 0.5 MG; Start 10/06/16 at 18:30 Promethazine HCl/ Codeine (Phenergan/ Codeine) 10 ml BID PRN PO COUGH; Start at 20:30 Morphine Sulfate 60 mg 60 mg Q6 PO Last administered on 10/20/16 13:11; Admin Dose 60 MG; Start 10/09/16 at 12:00 Metronidazole 250 mg/N/A 50 ml @ 50 mls/hr Q8 IVPB Last administered on 13:42; Admin Dose 50 MLS/HR; Start 10/10/16 at 22:00 Amikacin Sulfate/ Dextrose (Amikacin/D5W) 102.8 ml @ 102.8 mls/ hr Q36H IVPB Last administered on 10/19/16 10:01; Admin Dose 102.8 MLS/HR; Start 10/14/16 at 21:00 Sodium Chloride (Nacl) 1 gm TID PO Last administered on 10/20/16 13:15; Admin Dose 1 GM; Start 10/16/16 at 17:00 Fluconazole (Diflucan) 100 mg DAILY PO Last administered on 10/20/16 09:10; Admin Dose 100 MG; Start 10/17/16 at 13:00 RUBIN MAYEN NP October 20, 2016 13:50
--- NOTE | 2016-10-20 15:50 | PN ---
Date/Time of Note Date/Time of Note DATE: 10/20/16 TIME: 15:50 Assessment/Plan Lines/Catheters IV Catheter Type (from Nrs): PICC Line George in Place (from Nrs): Yes Assessment/Plan Chief Complaint/Hosp Course 1. Multiple decubitus ulcers with debris -Offload -Optimize nutrition -Vitamin C -Local care -Debridement sacrococcyx prn 2. UTI s/p abx 3. 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 Acute on chronic diastolic heart failure -Judicious fluid management -Cardiac optimization 5. Hypertension -Diet and medication control 6. Chronic urinary retention with George 7. Depression. -Medical management 8. Hypothyroidism by history. -Synthroid 9. Anemia of chronic disease in addition to iron deficiency anemia. -Continue iron supplements. -Transfusion when necessary 10. Chronic pain syndrome. Continue pain management. Thank you Problems: Subjective 24 Hr Interval Summary There is no current fevers, chills, nausea, vomiting, or abdominal pain. No abnormal vaginal discharge. No bloating. No cough, sz, bloating. No robles/dizzy/ visual or neuro changes. Exam/Review of Systems Vital Signs Vitals Vital Signs Date Time Temp Pulse Resp B/P Pulse Ox O2 Delivery O2 Flow Rate FiO2 10/20/16 07:40 98.8 76 20 99/70 96 10/19/16 22:39 Nasal Cannula 2.0 Intake and Output 10/19/16 10/19/16 10/20/16 15:00 23:00 07:00 Intake Total 150 ml 1130 ml 1120 ml Output Total 725 ml 760 ml Balance 150 ml 405 ml 360 ml Exam Free Text/Dictation GENERAL: Elderly, cachectic, no acute distress. HEENT: Head is atraumatic, normocephalic. Pupils equal, round, reactive to light and accommodation. Oral mucosa is pink and moist. NECK: Supple, no cervical lymphadenopathy LUNGS: Normal respiratory effort CARDIAC: S1 and S2. ABDOMEN: Flat, soft and nondistended. Nontender. No rebound or guarding. SKIN: Multiple decubitus wounds/ulcers buttock sacrum and right lower extremity EXTREMITIES: No edema. Pulses equal bilaterally, 2+. NEUROLOGICAL: Responsive VASCULAR: Refill is less than 2 seconds Results Result Diagram: 10/20/1642410/20/16424 ZAK POSEY MD October 20, 2016 15:50
--- NOTE | 2016-10-20 17:50 | CONS ---
Date/Time of Note Date/Time of Note DATE: 10/20/16 TIME: 17:49 Assessment/Plan Assessment/Plan Additional Assessment/Plan 1. Hyponatremia, 2. Status post acute kidney injury on chronic kidney disease due to systemic inflammatory response syndrome. 3. Systemic inflammatory response syndrome. 4. History of recurrent polymicrobial urinary tract infections. 5. History of dementia. 6. History of previous cerebrovascular accident. 7. History of chronic obstructive pulmonary disease, recently had acute respiratory failure secondary to chronic obstructive pulmonary disease exacerbation. 8. History of urinary retention with a chronic George catheter in place. 9. Chronic debility with cachexia. 10. Multiple decubitus ulcers with a history of debridement. 11. History of degenerative joint disease of spine. 12. History of hypertension and hypertensive heart disease with mild to moderate concentric left ventricular hypertrophy and echocardiogram with diastolic dysfunction stage I. PLAN: Na 131, pt likey has Component of SAIDH causing hypoantreia, due to acute on chronic pain continue Na Chloride tablet 1 gram PO TID replace K as needed will follow up Consultation Date/Type/Reason Admit Date/Time Sep 26, 2016 at 20:07 Type of Consultation: NEPHROLOGY Referring Provider: DRE LOBATO MD 24 HR Interval Summary Free Text/Dictation Na dropped to 129, Exam/Review of Systems Vital Signs Vitals Vital Signs Date Time Temp Pulse Resp B/P Pulse Ox O2 Delivery O2 Flow Rate FiO2 10/20/16 07:40 98.8 76 20 99/70 96 10/19/16 22:39 Nasal Cannula 2.0 Intake and Output 10/19/16 10/19/16 10/20/16 14:59 22:59 06:59 Intake Total 150 ml 1130 ml 1120 ml Output Total 725 ml 760 ml Balance 150 ml 405 ml 360 ml Results Result Diagram: 10/20/16 0425 10/20/16 0425 Results 24 hrs Laboratory Tests Test 10/20/16 04:25 White Blood Count 15.1 H Red Blood Count 3.35 L Hemoglobin 8.5 L Hematocrit 28.3 L Mean Corpuscular Volume 84.5 Mean Corpuscular Hemoglobin 25.4 L Mean Corpuscular Hemoglobin Concent 30.0 L Red Cell Distribution Width 17.7 H Platelet Count 328 Mean Platelet Volume 8.9 Neutrophils % 69.9 Lymphocytes % 12.6 L Monocytes % 12.5 H Eosinophils % 3.8 Basophils % 0.5 Nucleated Red Blood Cells % 0.0 Neutrophils # 10.6 H Lymphocytes # 1.9 Monocytes # 1.9 H Eosinophils # 0.6 H Basophils # 0.1 Nucleated Red Blood Cells # 0.0 Sodium Level 129 L Potassium Level 3.9 Chloride Level 92 L Carbon Dioxide Level 32 H Anion Gap 9 Blood Urea Nitrogen 18 Creatinine 0.46 Glucose Level 119 Calcium Level 8.2 L Medications Medications Current Medications Ondansetron HCl (Zofran Inj) 4 mg Q6 PRN IV NAUSEA AND/OR VOMITING; Start 09/26 at 22:30 Acetaminophen (Tylenol Tab) 650 mg Q6H PRN PO PAIN AND OR ELEVATED TEMP Last administered on 10/19/16 20:54; Admin Dose 650 MG; Start 09/26/16 at 23:00 Alprazolam (Xanax) 0.5 mg Q12 PRN PO ANXIETY Last administered on 10/04/16 20: 29; Admin Dose 0.5 MG; Start 09/26/16 at 23:00 Ascorbic Acid (Vitamin C) 500 mg BID PO Last administered on 10/20/16 09:10; Admin Dose 500 MG; Start 09/27/16 at 09:00 Atorvastatin Calcium (Lipitor) 20 mg QHS PO Last administered on 10/19/16 20:52 ; Admin Dose 20 MG; Start 09/27/16 at 21:00 Diazepam (Valium) 10 mg DAILY PO Last administered on 10/20/16 09:10; Admin Dose 10 MG; Start 09/27/16 at 09:00 Docusate Sodium (Colace) 100 mg Q12H PRN PO CONSTIPATION; Start 09/26/16 at 23: 00 Duloxetine HCl (Cymbalta) 20 mg DAILY PO Last administered on 10/20/16 09:10; Admin Dose 20 MG; Start 09/27/16 at 09:00 Gabapentin (Neurontin) 300 mg TID PO Last administered on 10/20/16 13:10; Admin Dose 300 MG; Start 09/27/16 at 09:00 Zolpidem Tartrate (Ambien) 5 mg QHS PRN PO INSOMNIA Last administered on 02:35; Admin Dose 5 MG; Start 09/26/16 at 23:00 Collagenase (Santyl) 1 applic DAILY TOP Last administered on 10/18/16 08:11; Admin Dose 1 APPLIC; Start 09/27/16 at 09:00 Collagenase (Santyl) 1 applic PRN PRN TOP SOILED OR DISLODGED DRESSING; Start 09/27/16 at 05:00 Lansoprazole (Prevacid) 30 mg DAILY@06 GTB Last administered on 10/20/16 05:33 ; Admin Dose 30 MG; Start 09/28/16 at 06:00 Mupirocin (Bactroban) 1 applic BID TOP Last administered on 10/20/16 09:11; Admin Dose 1 APPLIC; Start 09/28/16 at 21:00 Cromolyn Sodium (Nasalcrom) 1 spray QID NASAL Last administered on 10/20/16 09: 09; Admin Dose 1 SPRAY; Start 09/29/16 at 11:02 Linezolid (Zyvox) 600 mg BID PO Last administered on 10/20/16 09:10; Admin Dose 600 MG; Start 09/29/16 at 21:00 Amikacin Sulfate (Amikacin Iv Per Pharmacy) AMIKACIN PER PHARMACY NOTE XX ; Start 09/29/16 at 15:30 Phenol (Cepastat Lozenge) 1 lozenge Q2H PRN MT SORE THROAT Last administered on 10/02/16 12:48; Admin Dose 1 LOZENGE; Start 10/01/16 at 19:00 IV Flush (NS 10 ml) 10 ml PRN PRN IV IV PROTOCOL; Start 10/02/16 at 19:00 Lactobacillus Acidophilus (Florajen3 Capsule) 1 each TID PO Last administered on 10/20/16 13:10; Admin Dose 1 EACH; Start 10/03/16 at 21:00 Hydromorphone HCl (Dilaudid) 0.5 mg Q4H PRN IV PAIN Last administered on 16:12; Admin Dose 0.5 MG; Start 10/06/16 at 18:30 Promethazine HCl/ Codeine (Phenergan/ Codeine) 10 ml BID PRN PO COUGH; Start at 20:30 Morphine Sulfate 60 mg 60 mg Q6 PO Last administered on 10/20/16 13:11; Admin Dose 60 MG; Start 10/09/16 at 12:00 Metronidazole 250 mg/N/A 50 ml @ 50 mls/hr Q8 IVPB Last administered on 13:42; Admin Dose 50 MLS/HR; Start 10/10/16 at 22:00 Amikacin Sulfate/ Dextrose (Amikacin/D5W) 102.8 ml @ 102.8 mls/ hr Q36H IVPB Last administered on 10/19/16 10:01; Admin Dose 102.8 MLS/HR; Start 10/14/16 at 21:00 Sodium Chloride (Nacl) 1 gm TID PO Last administered on 10/20/16 13:15; Admin Dose 1 GM; Start 10/16/16 at 17:00 Fluconazole (Diflucan) 100 mg DAILY PO Last administered on 10/20/16 09:10; Admin Dose 100 MG; Start 10/17/16 at 13:00 DIONNE SAUCEDA MD October 20, 2016 17:50
[2016-10-20] MEDS: ATORVASTATIN 20 MG TAB PO SCH (21:10)
[2016-10-20] MEDS: AMIKACIN 700 MG in DEXTROSE 5% 100 ML IVPB SCH (21:13)
[2016-10-20 21:21] VITALS: BP 93/57; RESP 18
[2016-10-21] MEDS: morphine (ER) 30 MG TAB PO SCH ×4 (05:48→12:28)
[2016-10-21] MEDS: LANSOPRAZOLE 30 MG CAP GTB SCH (05:48)
[2016-10-21] MEDS: metroNIDAZOLE 500 MG/NS (PMX) 250 MG in EVAC CONTAINER 1 BOTTLE IVPB SCH ×3 (05:52→21:58)
[2016-10-21 08:27] VITALS: BP 89/55; RESP 19
[2016-10-21] MEDS: ASCORBIC ACID 500 MG TAB PO SCH ×2 (09:07→21:57)
[2016-10-21] MEDS: GABAPENTIN 300 MG CAP PO SCH ×2 (09:07→12:27)
[2016-10-21] MEDS: L ACIDOPHIL/B LACTIS/B LONGUM CAPSULE PO SCH ×3 (09:07→22:01)
[2016-10-21] MEDS: FLUCONAZOLE 100 MG TAB PO SCH (09:07)
[2016-10-21] MEDS: DULOXETINE 20 MG CAP DR PO SCH (09:07)
[2016-10-21] MEDS: SODIUM CHLORIDE 1 GM TAB PO SCH ×3 (09:07→21:57)
[2016-10-21] MEDS: LEVOTHYROXINE 125 MCG TAB PO SCH (09:07)
[2016-10-21] MEDS: ZYVOX 600 MG TAB PO SCH ×2 (09:07→21:57)
[2016-10-21] MEDS: DIAZEPAM 5 MG TAB PO SCH (09:08)
[2016-10-21] MEDS: MUPIROCIN 2% 22 GM OINT TOP SCH ×2 (09:09→21:58)
[2016-10-21] MEDS: COLLAGENASE 30 GM TUBE TOP SCH (09:09)
[2016-10-21] MEDS: CROMOLYN 4% 26ML NAS INH NASAL SCH ×4 (09:14→21:58)
--- NOTE | 2016-10-21 15:01 | CONS ---
Date/Time of Note Date/Time of Note DATE: 10/21/16 TIME: 14:58 Assessment/Plan Assessment/Plan Additional Assessment/Plan 1. Hyponatremia, 2. Status post acute kidney injury on chronic kidney disease due to systemic inflammatory response syndrome. 3. Systemic inflammatory response syndrome. 4. History of recurrent polymicrobial urinary tract infections. 5. History of dementia. 6. History of previous cerebrovascular accident. 7. History of chronic obstructive pulmonary disease, recently had acute respiratory failure secondary to chronic obstructive pulmonary disease exacerbation. 8. History of urinary retention with a chronic George catheter in place. 9. Chronic debility with cachexia. 10. Multiple decubitus ulcers with a history of debridement. 11. History of degenerative joint disease of spine. 12. History of hypertension and hypertensive heart disease with mild to moderate concentric left ventricular hypertrophy and echocardiogram with diastolic dysfunction stage I. PLAN: Na dropped to 129, pt likey has Component of SAIDH causing hypoantreia, due to acute on chronic pain very lethargic today, will hold MS contin and D/c gabapentin continue Na Chloride tablet 1 gram PO TID replace K as needed will follow up Consultation Date/Type/Reason Admit Date/Time Sep 26, 2016 at 20:07 Type of Consultation: NEPHROLOGY Referring Provider: DRE LOBATO MD 24 HR Interval Summary Free Text/Dictation Na dropped to 129,pt is very lethargic, not waking up , Exam/Review of Systems Vital Signs Vitals Vital Signs Date Time Temp Pulse Resp B/P Pulse Ox O2 Delivery O2 Flow Rate FiO2 10/21/16 09:30 Nasal Cannula 2.0 10/21/16 08:27 97.9 94 19 89/55 98 Intake and Output 10/20/16 10/20/16 10/21/16 15:00 23:00 07:00 Intake Total 100 ml 1022.8 ml 1010 ml Output Total 450 ml 1000 ml Balance 100 ml 572.8 ml 10 ml Exam lethargic Constitutional: alert, frail, oriented Head: normocephalic Respiratory: other (Coarse breath sounds bilaterally, no wheezing) Cardiovascular: other (S1-S2 heard), regular rate and rhythm Gastrointestinal: bowel sounds, non-tender, soft Extremities: other (No edema) Results Result Diagram: 10/20/16 0425 10/20/16 0425 Medications Medications Current Medications Ondansetron HCl (Zofran Inj) 4 mg Q6 PRN IV NAUSEA AND/OR VOMITING; Start 09/26 at 22:30 Acetaminophen (Tylenol Tab) 650 mg Q6H PRN PO PAIN AND OR ELEVATED TEMP Last administered on 10/19/16 20:54; Admin Dose 650 MG; Start 09/26/16 at 23:00 Alprazolam (Xanax) 0.5 mg Q12 PRN PO ANXIETY Last administered on 10/04/16 20: 29; Admin Dose 0.5 MG; Start 09/26/16 at 23:00 Ascorbic Acid (Vitamin C) 500 mg BID PO Last administered on 10/21/16 09:07; Admin Dose 500 MG; Start 09/27/16 at 09:00 Atorvastatin Calcium (Lipitor) 20 mg QHS PO Last administered on 10/20/16 21:10 ; Admin Dose 20 MG; Start 09/27/16 at 21:00 Diazepam (Valium) 10 mg DAILY PO Last administered on 10/21/16 09:08; Admin Dose 10 MG; Start 09/27/16 at 09:00 Docusate Sodium (Colace) 100 mg Q12H PRN PO CONSTIPATION; Start 09/26/16 at 23: 00 Duloxetine HCl (Cymbalta) 20 mg DAILY PO Last administered on 10/21/16 09:07; Admin Dose 20 MG; Start 09/27/16 at 09:00 Gabapentin (Neurontin) 300 mg TID PO Last administered on 10/21/16 12:27; Admin Dose 300 MG; Start 09/27/16 at 09:00 Zolpidem Tartrate (Ambien) 5 mg QHS PRN PO INSOMNIA Last administered on 02:35; Admin Dose 5 MG; Start 09/26/16 at 23:00 Collagenase (Santyl) 1 applic DAILY TOP Last administered on 10/21/16 09:09; Admin Dose 1 APPLIC; Start 09/27/16 at 09:00 Collagenase (Santyl) 1 applic PRN PRN TOP SOILED OR DISLODGED DRESSING; Start 09/27/16 at 05:00 Lansoprazole (Prevacid) 30 mg DAILY@06 GTB Last administered on 10/21/16 05:48 ; Admin Dose 30 MG; Start 09/28/16 at 06:00 Mupirocin (Bactroban) 1 applic BID TOP Last administered on 10/21/16 09:09; Admin Dose 1 APPLIC; Start 09/28/16 at 21:00 Cromolyn Sodium (Nasalcrom) 1 spray QID NASAL Last administered on 10/21/16 12: 27; Admin Dose 1 SPRAY; Start 09/29/16 at 11:02 Linezolid (Zyvox) 600 mg BID PO Last administered on 10/21/16 09:07; Admin Dose 600 MG; Start 09/29/16 at 21:00 Amikacin Sulfate (Amikacin Iv Per Pharmacy) AMIKACIN PER PHARMACY NOTE XX ; Start 09/29/16 at 15:30 Phenol (Cepastat Lozenge) 1 lozenge Q2H PRN MT SORE THROAT Last administered on 10/02/16 12:48; Admin Dose 1 LOZENGE; Start 10/01/16 at 19:00 IV Flush (NS 10 ml) 10 ml PRN PRN IV IV PROTOCOL; Start 10/02/16 at 19:00 Lactobacillus Acidophilus (Florajen3 Capsule) 1 each TID PO Last administered on 10/21/16 12:27; Admin Dose 1 EACH; Start 10/03/16 at 21:00 Hydromorphone HCl (Dilaudid) 0.5 mg Q4H PRN IV PAIN Last administered on 21:10; Admin Dose 0.5 MG; Start 10/06/16 at 18:30 Promethazine HCl/ Codeine (Phenergan/ Codeine) 10 ml BID PRN PO COUGH; Start at 20:30 Morphine Sulfate 60 mg 60 mg Q6 PO Last administered on 10/21/16 12:28; Admin Dose 60 MG; Start 10/09/16 at 12:00 Metronidazole 250 mg/N/A 50 ml @ 50 mls/hr Q8 IVPB Last administered on 14:12; Admin Dose 50 MLS/HR; Start 10/10/16 at 22:00 Amikacin Sulfate/ Dextrose (Amikacin/D5W) 102.8 ml @ 102.8 mls/ hr Q36H IVPB Last administered on 10/20/16 21:13; Admin Dose 102.8 MLS/HR; Start 10/14/16 at 21:00 Sodium Chloride (Nacl) 1 gm TID PO Last administered on 10/21/16 12:27; Admin Dose 1 GM; Start 10/16/16 at 17:00 Fluconazole (Diflucan) 100 mg DAILY PO Last administered on 10/21/16 09:07; Admin Dose 100 MG; Start 10/17/16 at 13:00 DIONNE SAUCEDA MD October 21, 2016 15:01
--- NOTE | 2016-10-21 16:05 | PN ---
Date/Time of Note Date/Time of Note DATE: 10/21/16 TIME: 15:54 Assessment/Plan VTE Prophylaxis VTE Prophylaxis Intervention: other Lines/Catheters IV C[facility]ter Type (from [facility]): PICC Line Central line still needed: Yes Urinary Cath still in place: Yes Reason Cath still needed: urinary retention Assessment/Plan Assessment/Plan - Hypothermia-- per nephrology - Recurrent sepsis, resolving. Dr. Coleman is following in infection disease consultation. Continue antibiotics per ID. - Persistent leukocytosis secondary to multiple wounds and malignancy. - Hyponatremia, Dr. Zapata is following in nephrology consultation. - Polymicrobial urinary tract infection, s/p treatment. - Left lung squamous cell carcinoma. Patient is not a candidate for chemotherapy. - Chronic obstructive pulmonary disease. Continue breathing treatment. - Multiple decubitus ulcers with history of debridement. Continue current wound care. Wound culture is growing polymicrobial organisms. Continue antibiotics per ID. - Methicillin-resistant Staphylococcus aureus nares colonization. - Cachexia. Optimize nutrition. - Dysphagia with G-tube placement. Continue G-tube feeding. Aspiration precaution. - Chronic urinary retention. Continue George catheter. - Hypothyroidism. TSH is within normal limits. Continue Synthroid. - Anemia of chronic disease. Continue to monitor hemoglobin and hematocrit. Blood transfusion as needed. - Right hand swelling, resolving. CT scan of the right hand is negative. Further recommendations based on clinical course. Plan of care discussed with Dr. Dozier. Subjective 24 Hr Interval Summary Free Text/Dictation nad, sleeping, afebrile, no new events reported overlast night. dw staff. Constitutional: requiring O2 Eyes: no complaints ENT: no complaints Respiratory: shortness of breath Cardiovascular: no complaints Gastrointestinal: no complaints Genitourinary: no complaints Musculoskeletal: no complaints Skin: other Neurologic: no complaints Exam/Review of Systems Vital Signs Vitals Vital Signs Date Time Temp Pulse Resp B/P Pulse Ox O2 Delivery O2 Flow Rate FiO2 10/21/16 09:30 Nasal Cannula 2.0 10/21/16 08:27 97.9 94 19 89/55 98 Intake and Output 10/20/16 10/20/16 10/21/16 15:00 23:00 07:00 Intake Total 100 ml 1022.8 ml 1010 ml Output Total 450 ml 1000 ml Balance 100 ml 572.8 ml 10 ml Exam Constitutional: alert Psych: nl mood/affect Head: atraumatic Eyes: EOMI ENMT: nl external ears & nose Respiratory: diminished breath sounds Cardiovascular: nl pulses Gastrointestinal: non-tender, soft Musculoskeletal: muscle weakness Neurological: confused, nl speech Skin: other Lymph: nontender Results Result Diagram: 10/20/165 10/20/16424 Medications Medications Current Medications Ondansetron HCl (Zofran Inj) 4 mg Q6 PRN IV NAUSEA AND/OR VOMITING; Start 09/26 at 22:30 Acetaminophen (Tylenol Tab) 650 mg Q6H PRN PO PAIN AND OR ELEVATED TEMP Last administered on 10/19/16 20:54; Admin Dose 650 MG; Start 09/26/16 at 23:00 Alprazolam (Xanax) 0.5 mg Q12 PRN PO ANXIETY Last administered on 10/04/16 20: 29; Admin Dose 0.5 MG; Start 09/26/16 at 23:00 Ascorbic Acid (Vitamin C) 500 mg BID PO Last administered on 10/21/16 09:07; Admin Dose 500 MG; Start 09/27/16 at 09:00 Atorvastatin Calcium (Lipitor) 20 mg QHS PO Last administered on 10/20/16 21:10 ; Admin Dose 20 MG; Start 09/27/16 at 21:00 Diazepam (Valium) 10 mg DAILY PO Last administered on 10/21/16 09:08; Admin Dose 10 MG; Start 09/27/16 at 09:00 Docusate Sodium (Colace) 100 mg Q12H PRN PO CONSTIPATION; Start 09/26/16 at 23: 00 Duloxetine HCl (Cymbalta) 20 mg DAILY PO Last administered on 10/21/16 09:07; Admin Dose 20 MG; Start 09/27/16 at 09:00 Zolpidem Tartrate (Ambien) 5 mg QHS PRN PO INSOMNIA Last administered on 02:35; Admin Dose 5 MG; Start 09/26/16 at 23:00 Collagenase (Santyl) 1 applic DAILY TOP Last administered on 10/21/16 09:09; Admin Dose 1 APPLIC; Start 09/27/16 at 09:00 Collagenase (Santyl) 1 applic PRN PRN TOP SOILED OR DISLODGED DRESSING; Start 09/27/16 at 05:00 Lansoprazole (Prevacid) 30 mg DAILY@06 GTB Last administered on 10/21/16 05:48 ; Admin Dose 30 MG; Start 09/28/16 at 06:00 Mupirocin (Bactroban) 1 applic BID TOP Last administered on 10/21/16 09:09; Admin Dose 1 APPLIC; Start 09/28/16 at 21:00 Cromolyn Sodium (Nasalcrom) 1 spray QID NASAL Last administered on 10/21/16 12: 27; Admin Dose 1 SPRAY; Start 09/29/16 at 11:02 Linezolid (Zyvox) 600 mg BID PO Last administered on 10/21/16 09:07; Admin Dose 600 MG; Start 09/29/16 at 21:00 Amikacin Sulfate (Amikacin Iv Per Pharmacy) AMIKACIN PER PHARMACY NOTE XX ; Start 09/29/16 at 15:30 Phenol (Cepastat Lozenge) 1 lozenge Q2H PRN MT SORE THROAT Last administered on 10/02/16 12:48; Admin Dose 1 LOZENGE; Start 10/01/16 at 19:00 IV Flush (NS 10 ml) 10 ml PRN PRN IV IV PROTOCOL; Start 10/02/16 at 19:00 Lactobacillus Acidophilus (Florajen3 Capsule) 1 each TID PO Last administered on 10/21/16 12:27; Admin Dose 1 EACH; Start 10/03/16 at 21:00 Hydromorphone HCl (Dilaudid) 0.5 mg Q4H PRN IV PAIN Last administered on 21:10; Admin Dose 0.5 MG; Start 10/06/16 at 18:30 Promethazine HCl/ Codeine (Phenergan/ Codeine) 10 ml BID PRN PO COUGH; Start at 20:30 Morphine Sulfate 60 mg 60 mg Q6 PO Last administered on 10/21/16 12:28; Admin Dose 60 MG; Start 10/09/16 at 12:00; Status Future Hold Metronidazole 250 mg/N/A 50 ml @ 50 mls/hr Q8 IVPB Last administered on 14:12; Admin Dose 50 MLS/HR; Start 10/10/16 at 22:00 Amikacin Sulfate/ Dextrose (Amikacin/D5W) 102.8 ml @ 102.8 mls/ hr Q36H IVPB Last administered on 10/20/16 21:13; Admin Dose 102.8 MLS/HR; Start 10/14/16 at 21:00 Sodium Chloride (Nacl) 1 gm TID PO Last administered on 10/21/16 12:27; Admin Dose 1 GM; Start 10/16/16 at 17:00 Fluconazole (Diflucan) 100 mg DAILY PO Last administered on 10/21/16 09:07; Admin Dose 100 MG; Start 10/17/16 at 13:00 VIKASH CASTANEDA October 21, 2016 16:04
--- NOTE | 2016-10-21 19:57 | CONS ---
Date/Time of Note Date/Time of Note DATE: 10/21/16 TIME: 19:56 Assessment/Plan Assessment/Plan Chief Complaint/Hosp Course SUBJECTIVE: No events overnight. The patient looks comfortable, no fevers. ANTIMICROBIALS: 1. Amikacin. 2. Fluconazole. 3. Flagyl. 4. Zyvox. 5. Topical Bactroban to nares. INDWELLINGS: PEG, George, PICC line. PHYSICAL EXAMINATION: GENERAL: A cachectic elderly woman who is awake, in no distress. HEENT: Head atraumatic, normocephalic. Sclerae anicteric. Buccal mucosa dry. NECK: Supple. CHEST: Rise symmetrical. Breath sounds clear, diminished to bases. HEART: S1, S2. ABDOMEN: Soft, bowel sounds present. EXTREMITIES: Without cyanosis. ASSESSMENT: 1. Systemic inflammatory response syndrome with persistent leukocytosis secondary to infected wounds, and possibly secondary to malignancy. 2. Lung cancer. 3. Cachexia. 4. Sacral decubitus with exposed bone and culture growing multidrug resistant organisms, status post debridement with wound VAC application. 5. History of Clostridium difficile, pneumonia and urinary tract infection. 6. Oral thrush. PLAN: The patient remains stable. Continue present care, continue antibiotics , local wound care, wound vac. DW staff Problems: Consultation Date/Type/Reason Admit Date/Time Sep 26, 2016 at 20:07 Type of Consultation: ID Referring Provider: DRE LOBATO MD Exam/Review of Systems Vital Signs Vitals Vital Signs Date Time Temp Pulse Resp B/P Pulse Ox O2 Delivery O2 Flow Rate FiO2 10/21/16 18:10 2.0 10/21/16 09:30 Nasal Cannula 10/21/16 08:27 97.9 94 19 89/55 98 Intake and Output 10/20/16 10/20/16 10/21/16 15:00 23:00 07:00 Intake Total 100 ml 1022.8 ml 1010 ml Output Total 450 ml 1000 ml Balance 100 ml 572.8 ml 10 ml Results Result Diagram: 10/20/16 0425 10/20/16 0425 Medications Medications Current Medications Ondansetron HCl (Zofran Inj) 4 mg Q6 PRN IV NAUSEA AND/OR VOMITING; Start 09/26 at 22:30 Acetaminophen (Tylenol Tab) 650 mg Q6H PRN PO PAIN AND OR ELEVATED TEMP Last administered on 10/19/16 20:54; Admin Dose 650 MG; Start 09/26/16 at 23:00 Alprazolam (Xanax) 0.5 mg Q12 PRN PO ANXIETY Last administered on 10/04/16 20: 29; Admin Dose 0.5 MG; Start 09/26/16 at 23:00 Ascorbic Acid (Vitamin C) 500 mg BID PO Last administered on 10/21/16 09:07; Admin Dose 500 MG; Start 09/27/16 at 09:00 Atorvastatin Calcium (Lipitor) 20 mg QHS PO Last administered on 10/20/16 21:10 ; Admin Dose 20 MG; Start 09/27/16 at 21:00 Diazepam (Valium) 10 mg DAILY PO Last administered on 10/21/16 09:08; Admin Dose 10 MG; Start 09/27/16 at 09:00 Docusate Sodium (Colace) 100 mg Q12H PRN PO CONSTIPATION; Start 09/26/16 at 23: 00 Duloxetine HCl (Cymbalta) 20 mg DAILY PO Last administered on 10/21/16 09:07; Admin Dose 20 MG; Start 09/27/16 at 09:00 Zolpidem Tartrate (Ambien) 5 mg QHS PRN PO INSOMNIA Last administered on 02:35; Admin Dose 5 MG; Start 09/26/16 at 23:00 Collagenase (Santyl) 1 applic DAILY TOP Last administered on 10/21/16 09:09; Admin Dose 1 APPLIC; Start 09/27/16 at 09:00 Collagenase (Santyl) 1 applic PRN PRN TOP SOILED OR DISLODGED DRESSING; Start 09/27/16 at 05:00 Lansoprazole (Prevacid) 30 mg DAILY@06 GTB Last administered on 10/21/16 05:48 ; Admin Dose 30 MG; Start 09/28/16 at 06:00 Mupirocin (Bactroban) 1 applic BID TOP Last administered on 10/21/16 09:09; Admin Dose 1 APPLIC; Start 09/28/16 at 21:00 Cromolyn Sodium (Nasalcrom) 1 spray QID NASAL Last administered on 10/21/16 17: 37; Admin Dose 1 SPRAY; Start 09/29/16 at 11:02 Linezolid (Zyvox) 600 mg BID PO Last administered on 10/21/16 09:07; Admin Dose 600 MG; Start 09/29/16 at 21:00 Amikacin Sulfate (Amikacin Iv Per Pharmacy) AMIKACIN PER PHARMACY NOTE XX ; Start 09/29/16 at 15:30 Phenol (Cepastat Lozenge) 1 lozenge Q2H PRN MT SORE THROAT Last administered on 10/02/16 12:48; Admin Dose 1 LOZENGE; Start 10/01/16 at 19:00 IV Flush (NS 10 ml) 10 ml PRN PRN IV IV PROTOCOL; Start 10/02/16 at 19:00 Lactobacillus Acidophilus (Florajen3 Capsule) 1 each TID PO Last administered on 10/21/16 12:27; Admin Dose 1 EACH; Start 10/03/16 at 21:00 Hydromorphone HCl (Dilaudid) 0.5 mg Q4H PRN IV PAIN Last administered on 21:10; Admin Dose 0.5 MG; Start 10/06/16 at 18:30 Promethazine HCl/ Codeine (Phenergan/ Codeine) 10 ml BID PRN PO COUGH; Start at 20:30 Morphine Sulfate 60 mg 60 mg Q6 PO Last administered on 10/21/16 12:28; Admin Dose 60 MG; Start 10/09/16 at 12:00; Status Future Hold Metronidazole 250 mg/N/A 50 ml @ 50 mls/hr Q8 IVPB Last administered on 14:12; Admin Dose 50 MLS/HR; Start 10/10/16 at 22:00 Amikacin Sulfate/ Dextrose (Amikacin/D5W) 102.8 ml @ 102.8 mls/ hr Q36H IVPB Last administered on 10/20/16 21:13; Admin Dose 102.8 MLS/HR; Start 10/14/16 at 21:00 Sodium Chloride (Nacl) 1 gm TID PO Last administered on 10/21/16 12:27; Admin Dose 1 GM; Start 10/16/16 at 17:00 Fluconazole (Diflucan) 100 mg DAILY PO Last administered on 10/21/16 09:07; Admin Dose 100 MG; Start 10/17/16 at 13:00 RUBIN MAYEN NP October 21, 2016 19:57
[2016-10-21] MEDS: ATORVASTATIN 20 MG TAB PO SCH (21:57)
[2016-10-21 22:35] VITALS: BP 99/63; RESP 18
[2016-10-22] MEDS: ACETAMINOPHEN 325 MG TAB PO PRN (02:03)
[2016-10-22 06:01] LABS: ADD SCAN DIFF NO
[2016-10-22 06:12] LABS: ABNORMAL IP MESSAGE 1; HEMATOCRIT 29.3 % (37.0-47.0); MEAN CORPUSCULAR HEMOGLOBIN 25.9 pg (29.0-33.0); MEAN CORPUSCULAR HGB CONC 30.7 g/dl (32.0-37.0); MEAN CORPUSCULAR VOLUME 84.2 fl (82.0-101.0); MEAN PLATELET VOLUME 8.7 fl (7.4-10.4); PLATELET COUNT 314 10^3/UL (140-415); RED BLOOD COUNT 3.48 10^6/ul (4.20-5.40); RED CELL DISTRIBUTION WIDTH 17.8 % (11.5-14.5); WHITE BLOOD COUNT 15.5 10^3/ul (4.8-10.8)
[2016-10-22] MEDS: LEVOTHYROXINE 125 MCG TAB PO SCH (06:14)
[2016-10-22] MEDS: metroNIDAZOLE 500 MG/NS (PMX) 250 MG in EVAC CONTAINER 1 BOTTLE IVPB SCH ×3 (06:14→21:45)
[2016-10-22] MEDS: LANSOPRAZOLE 30 MG CAP GTB SCH (06:14)
[2016-10-22 06:42] LABS: CALCIUM 8.5 mg/dl (8.4-10.2); CREATININE 0.5 mg/dl (0.44-1.00); POTASSIUM 3.4 mmol/L (3.5-5.1)
[2016-10-22 08:01] VITALS: BP 126/88; RESP 19
[2016-10-22] MEDS: COLLAGENASE 30 GM TUBE TOP SCH (09:00)
[2016-10-22] MEDS: DULOXETINE 20 MG CAP DR PO SCH (09:00)
[2016-10-22] MEDS: CROMOLYN 4% 26ML NAS INH NASAL SCH ×4 (09:00→21:46)
[2016-10-22] MEDS: SODIUM CHLORIDE 1 GM TAB PO SCH ×3 (09:13→21:45)
[2016-10-22] MEDS: ASCORBIC ACID 500 MG TAB PO SCH ×2 (09:13→21:45)
[2016-10-22] MEDS: FLUCONAZOLE 100 MG TAB PO SCH (09:13)
[2016-10-22] MEDS: AMIKACIN 700 MG in DEXTROSE 5% 100 ML IVPB SCH (09:13)
[2016-10-22] MEDS: L ACIDOPHIL/B LACTIS/B LONGUM CAPSULE PO SCH ×3 (09:13→21:45)
[2016-10-22] MEDS: ZYVOX 600 MG TAB PO SCH ×2 (09:13→21:45)
[2016-10-22] MEDS: MUPIROCIN 2% 22 GM OINT TOP SCH ×2 (09:14→21:46)
[2016-10-22] MEDS: DIAZEPAM 5 MG TAB PO SCH (10:17)
[2016-10-22 11:06] LABS: LYMPHOCYTES # 1.6 10^3/ul (0.8-2.9); MONOCYTE # 0.8 10^3/ul (0.3-0.9); SPHEROCYTES RARE
[2016-10-22] MEDS: HYDROmorphONE 1 MG/ML SYG IV PRN ×3 (11:44→22:01)
--- NOTE | 2016-10-22 14:23 | CONS ---
Date/Time of Note Date/Time of Note DATE: 10/22/16 TIME: 14:22 Assessment/Plan Assessment/Plan Additional Assessment/Plan 1. Hyponatremia, 2. Status post acute kidney injury on chronic kidney disease due to systemic inflammatory response syndrome. 3. Systemic inflammatory response syndrome. 4. History of recurrent polymicrobial urinary tract infections. 5. History of dementia. 6. History of previous cerebrovascular accident. 7. History of chronic obstructive pulmonary disease, recently had acute respiratory failure secondary to chronic obstructive pulmonary disease exacerbation. 8. History of urinary retention with a chronic George catheter in place. 9. Chronic debility with cachexia. 10. Multiple decubitus ulcers with a history of debridement. 11. History of degenerative joint disease of spine. 12. History of hypertension and hypertensive heart disease with mild to moderate concentric left ventricular hypertrophy and echocardiogram with diastolic dysfunction stage I. PLAN: Na improved to 131, pt likey has Component of SAIDH causing hypoantreia, due to acute on chronic pain more alert today continue Na Chloride tablet 1 gram PO TID replace K as needed will follow up Consultation Date/Type/Reason Admit Date/Time Sep 26, 2016 at 20:07 Type of Consultation: NEPHROLOGY Referring Provider: DRE LOBATO MD 24 HR Interval Summary Free Text/Dictation Na imrpoved to 131 Exam/Review of Systems Vital Signs Vitals Vital Signs Date Time Temp Pulse Resp B/P Pulse Ox O2 Delivery O2 Flow Rate FiO2 10/22/16 08:01 97.8 97 19 126/88 100 10/22/16 08:00 Nasal Cannula 2.0 Intake and Output 10/21/16 10/21/16 10/22/16 15:00 23:00 07:00 Intake Total 920 ml 820 ml Output Total 1000 ml 1000 ml Balance -80 ml -180 ml Exam lethargic Constitutional: alert, frail, oriented Head: normocephalic Respiratory: other (Coarse breath sounds bilaterally, no wheezing) Cardiovascular: other (S1-S2 heard), regular rate and rhythm Gastrointestinal: bowel sounds, non-tender, soft Extremities: other (No edema) Results Result Diagram: 10/22/16 0516 10/22/16 0516 Results 24 hrs Laboratory Tests Test 10/22/16 05:16 White Blood Count 15.5 H Red Blood Count 3.48 L Hemoglobin 9.0 L Hematocrit 29.3 L Mean Corpuscular Volume 84.2 Mean Corpuscular Hemoglobin 25.9 L Mean Corpuscular Hemoglobin Concent 30.7 L Red Cell Distribution Width 17.8 H Platelet Count 314 Mean Platelet Volume 8.7 Neutrophils % 84.0 H Lymphocytes % 10.0 L Monocytes % 5.0 Eosinophils % Basophils % Promyelocytes % 1.0 H Nucleated Red Blood Cells % Neutrophils # 13.0 H Lymphocytes # 1.6 Monocytes # 0.8 Eosinophils # Basophils # Promyelocytes # 0.2 Nucleated Red Blood Cells # Differential Comment MANUAL DIF Spherocytes RARE Sodium Level 131 L Potassium Level 3.4 L Chloride Level 91 L Carbon Dioxide Level 32 H Anion Gap 11 Blood Urea Nitrogen 19 Creatinine 0.50 Glucose Level 157 Calcium Level 8.5 Medications Medications Current Medications Ondansetron HCl (Zofran Inj) 4 mg Q6 PRN IV NAUSEA AND/OR VOMITING; Start 09/26 at 22:30 Acetaminophen (Tylenol Tab) 650 mg Q6H PRN PO PAIN AND OR ELEVATED TEMP Last administered on 10/22/16 02:03; Admin Dose 650 MG; Start 09/26/16 at 23:00 Alprazolam (Xanax) 0.5 mg Q12 PRN PO ANXIETY Last administered on 10/04/16 20: 29; Admin Dose 0.5 MG; Start 09/26/16 at 23:00 Ascorbic Acid (Vitamin C) 500 mg BID PO Last administered on 10/22/16 09:13; Admin Dose 500 MG; Start 09/27/16 at 09:00 Atorvastatin Calcium (Lipitor) 20 mg QHS PO Last administered on 10/21/16 21:57 ; Admin Dose 20 MG; Start 09/27/16 at 21:00 Diazepam (Valium) 10 mg DAILY PO Last administered on 10/22/16 10:17; Admin Dose 10 MG; Start 09/27/16 at 09:00 Docusate Sodium (Colace) 100 mg Q12H PRN PO CONSTIPATION; Start 09/26/16 at 23: 00 Duloxetine HCl (Cymbalta) 20 mg DAILY PO Last administered on 10/21/16 09:07; Admin Dose 20 MG; Start 09/27/16 at 09:00 Zolpidem Tartrate (Ambien) 5 mg QHS PRN PO INSOMNIA Last administered on 02:35; Admin Dose 5 MG; Start 09/26/16 at 23:00 Collagenase (Santyl) 1 applic DAILY TOP Last administered on 10/21/16 09:09; Admin Dose 1 APPLIC; Start 09/27/16 at 09:00 Collagenase (Santyl) 1 applic PRN PRN TOP SOILED OR DISLODGED DRESSING; Start 09/27/16 at 05:00 Lansoprazole (Prevacid) 30 mg DAILY@06 GTB Last administered on 10/22/16 06:14 ; Admin Dose 30 MG; Start 09/28/16 at 06:00 Mupirocin (Bactroban) 1 applic BID TOP Last administered on 10/22/16 09:14; Admin Dose 1 APPLIC; Start 09/28/16 at 21:00 Cromolyn Sodium (Nasalcrom) 1 spray QID NASAL Last administered on 10/22/16 13: 54; Admin Dose 1 SPRAY; Start 09/29/16 at 11:02 Linezolid (Zyvox) 600 mg BID PO Last administered on 10/22/16 09:13; Admin Dose 600 MG; Start 09/29/16 at 21:00 Amikacin Sulfate (Amikacin Iv Per Pharmacy) AMIKACIN PER PHARMACY NOTE XX ; Start 09/29/16 at 15:30 Phenol (Cepastat Lozenge) 1 lozenge Q2H PRN MT SORE THROAT Last administered on 10/02/16 12:48; Admin Dose 1 LOZENGE; Start 10/01/16 at 19:00 IV Flush (NS 10 ml) 10 ml PRN PRN IV IV PROTOCOL; Start 10/02/16 at 19:00 Lactobacillus Acidophilus (Florajen3 Capsule) 1 each TID PO Last administered on 10/22/16 13:54; Admin Dose 1 EACH; Start 10/03/16 at 21:00 Hydromorphone HCl (Dilaudid) 0.5 mg Q4H PRN IV PAIN Last administered on 11:44; Admin Dose 0.5 MG; Start 10/06/16 at 18:30 Promethazine HCl/ Codeine (Phenergan/ Codeine) 10 ml BID PRN PO COUGH; Start at 20:30 Morphine Sulfate 60 mg 60 mg Q6 PO Last administered on 10/21/16 12:28; Admin Dose 60 MG; Start 10/09/16 at 12:00; Status Future Hold Metronidazole 250 mg/N/A 50 ml @ 50 mls/hr Q8 IVPB Last administered on 13:54; Admin Dose 50 MLS/HR; Start 10/10/16 at 22:00 Amikacin Sulfate/ Dextrose (Amikacin/D5W) 102.8 ml @ 102.8 mls/ hr Q36H IVPB Last administered on 10/22/16 09:13; Admin Dose 102.8 MLS/HR; Start 10/14/16 at 21:00 Sodium Chloride (Nacl) 1 gm TID PO Last administered on 10/22/16 13:54; Admin Dose 1 GM; Start 10/16/16 at 17:00 Fluconazole (Diflucan) 100 mg DAILY PO Last administered on 10/22/16 09:13; Admin Dose 100 MG; Start 10/17/16 at 13:00 DIONNE SAUCEDA MD October 22, 2016 14:23
--- NOTE | 2016-10-22 15:57 | CONS ---
Date/Time of Note Date/Time of Note DATE: 10/22/16 TIME: 15:57 Assessment/Plan Assessment/Plan Chief Complaint/Hosp Course SUBJECTIVE: No events overnight. The patient looks comfortable, no fevers. ANTIMICROBIALS: 1. Amikacin. 2. Fluconazole. 3. Flagyl. 4. Zyvox. 5. Topical Bactroban to nares. INDWELLINGS: PEG, George, PICC line. PHYSICAL EXAMINATION: GENERAL: A cachectic elderly woman who is awake, in no distress. HEENT: Head atraumatic, normocephalic. Sclerae anicteric. Buccal mucosa dry. NECK: Supple. CHEST: Rise symmetrical. Breath sounds clear, diminished to bases. HEART: S1, S2. ABDOMEN: Soft, bowel sounds present. EXTREMITIES: Without cyanosis. ASSESSMENT: 1. Systemic inflammatory response syndrome with persistent leukocytosis secondary to infected wounds, and possibly secondary to malignancy. 2. Lung cancer. 3. Cachexia. 4. Sacral decubitus with exposed bone and culture growing multidrug resistant organisms, status post debridement with wound VAC application. 5. History of Clostridium difficile, pneumonia and urinary tract infection. 6. Oral thrush. PLAN: The patient remains stable. Continue present care, continue antibiotics , local wound care, wound vac. DW staff Problems: Consultation Date/Type/Reason Admit Date/Time Sep 26, 2016 at 20:07 Type of Consultation: ID Referring Provider: DRE LOBATO MD Exam/Review of Systems Vital Signs Vitals Vital Signs Date Time Temp Pulse Resp B/P Pulse Ox O2 Delivery O2 Flow Rate FiO2 10/22/16 08:01 97.8 97 19 126/88 100 10/22/16 08:00 Nasal Cannula 2.0 Intake and Output 10/21/16 10/21/16 10/22/16 15:00 23:00 07:00 Intake Total 920 ml 820 ml Output Total 1000 ml 1000 ml Balance -80 ml -180 ml Results Result Diagram: 10/22/16 0516 10/22/16 0516 Results 24 hrs Laboratory Tests Test 10/22/16 05:16 White Blood Count 15.5 H Red Blood Count 3.48 L Hemoglobin 9.0 L Hematocrit 29.3 L Mean Corpuscular Volume 84.2 Mean Corpuscular Hemoglobin 25.9 L Mean Corpuscular Hemoglobin Concent 30.7 L Red Cell Distribution Width 17.8 H Platelet Count 314 Mean Platelet Volume 8.7 Neutrophils % 84.0 H Lymphocytes % 10.0 L Monocytes % 5.0 Eosinophils % Basophils % Promyelocytes % 1.0 H Nucleated Red Blood Cells % Neutrophils # 13.0 H Lymphocytes # 1.6 Monocytes # 0.8 Eosinophils # Basophils # Promyelocytes # 0.2 Nucleated Red Blood Cells # Differential Comment MANUAL DIF Spherocytes RARE Sodium Level 131 L Potassium Level 3.4 L Chloride Level 91 L Carbon Dioxide Level 32 H Anion Gap 11 Blood Urea Nitrogen 19 Creatinine 0.50 Glucose Level 157 Calcium Level 8.5 Medications Medications Current Medications Ondansetron HCl (Zofran Inj) 4 mg Q6 PRN IV NAUSEA AND/OR VOMITING; Start 09/26 at 22:30 Acetaminophen (Tylenol Tab) 650 mg Q6H PRN PO PAIN AND OR ELEVATED TEMP Last administered on 10/22/16 02:03; Admin Dose 650 MG; Start 09/26/16 at 23:00 Alprazolam (Xanax) 0.5 mg Q12 PRN PO ANXIETY Last administered on 10/04/16 20: 29; Admin Dose 0.5 MG; Start 09/26/16 at 23:00 Ascorbic Acid (Vitamin C) 500 mg BID PO Last administered on 10/22/16 09:13; Admin Dose 500 MG; Start 09/27/16 at 09:00 Atorvastatin Calcium (Lipitor) 20 mg QHS PO Last administered on 10/21/16 21:57 ; Admin Dose 20 MG; Start 09/27/16 at 21:00 Diazepam (Valium) 10 mg DAILY PO Last administered on 10/22/16 10:17; Admin Dose 10 MG; Start 09/27/16 at 09:00 Docusate Sodium (Colace) 100 mg Q12H PRN PO CONSTIPATION; Start 09/26/16 at 23: 00 Duloxetine HCl (Cymbalta) 20 mg DAILY PO Last administered on 10/21/16 09:07; Admin Dose 20 MG; Start 09/27/16 at 09:00 Zolpidem Tartrate (Ambien) 5 mg QHS PRN PO INSOMNIA Last administered on 02:35; Admin Dose 5 MG; Start 09/26/16 at 23:00 Collagenase (Santyl) 1 applic DAILY TOP Last administered on 10/21/16 09:09; Admin Dose 1 APPLIC; Start 09/27/16 at 09:00 Collagenase (Santyl) 1 applic PRN PRN TOP SOILED OR DISLODGED DRESSING; Start 09/27/16 at 05:00 Lansoprazole (Prevacid) 30 mg DAILY@06 GTB Last administered on 10/22/16 06:14 ; Admin Dose 30 MG; Start 09/28/16 at 06:00 Mupirocin (Bactroban) 1 applic BID TOP Last administered on 10/22/16 09:14; Admin Dose 1 APPLIC; Start 09/28/16 at 21:00 Cromolyn Sodium (Nasalcrom) 1 spray QID NASAL Last administered on 10/22/16 13: 54; Admin Dose 1 SPRAY; Start 09/29/16 at 11:02 Linezolid (Zyvox) 600 mg BID PO Last administered on 10/22/16 09:13; Admin Dose 600 MG; Start 09/29/16 at 21:00 Amikacin Sulfate (Amikacin Iv Per Pharmacy) AMIKACIN PER PHARMACY NOTE XX ; Start 09/29/16 at 15:30 Phenol (Cepastat Lozenge) 1 lozenge Q2H PRN MT SORE THROAT Last administered on 10/02/16 12:48; Admin Dose 1 LOZENGE; Start 10/01/16 at 19:00 IV Flush (NS 10 ml) 10 ml PRN PRN IV IV PROTOCOL; Start 10/02/16 at 19:00 Lactobacillus Acidophilus (Florajen3 Capsule) 1 each TID PO Last administered on 10/22/16 13:54; Admin Dose 1 EACH; Start 10/03/16 at 21:00 Hydromorphone HCl (Dilaudid) 0.5 mg Q4H PRN IV PAIN Last administered on 11:44; Admin Dose 0.5 MG; Start 10/06/16 at 18:30 Promethazine HCl/ Codeine (Phenergan/ Codeine) 10 ml BID PRN PO COUGH; Start at 20:30 Morphine Sulfate 60 mg 60 mg Q6 PO Last administered on 10/21/16 12:28; Admin Dose 60 MG; Start 10/09/16 at 12:00; Status Future Hold Metronidazole 250 mg/N/A 50 ml @ 50 mls/hr Q8 IVPB Last administered on 13:54; Admin Dose 50 MLS/HR; Start 10/10/16 at 22:00 Amikacin Sulfate/ Dextrose (Amikacin/D5W) 102.8 ml @ 102.8 mls/ hr Q36H IVPB Last administered on 10/22/16 09:13; Admin Dose 102.8 MLS/HR; Start 10/14/16 at 21:00 Sodium Chloride (Nacl) 1 gm TID PO Last administered on 10/22/16 13:54; Admin Dose 1 GM; Start 10/16/16 at 17:00 Fluconazole (Diflucan) 100 mg DAILY PO Last administered on 10/22/16 09:13; Admin Dose 100 MG; Start 10/17/16 at 13:00 RUBIN MAYEN NP October 22, 2016 15:57
[2016-10-22] MEDS ORDERED: POTASSIUM CHLORIDE (SR) 20 MEQ TAB PO STA (16:05)
--- NOTE | 2016-10-22 16:05 | PN ---
Date/Time of Note Date/Time of Note DATE: 10/22/16 TIME: 16:03 Assessment/Plan VTE Prophylaxis VTE Prophylaxis Intervention: other Lines/Catheters IV [facility] Type (from [facility]): PICC Line Central line still needed: Yes Urinary Cath still in place: Yes Reason Cath still needed: urinary retention Assessment/Plan Assessment/Plan - Hypokalemia- replet K, am BMP - Hyponatremia-- per nephrology - Recurrent sepsis, resolving. Dr. Coleman is following in infection disease consultation. Continue antibiotics per ID. - Persistent leukocytosis secondary to multiple wounds and malignancy. - Hyponatremia, Dr. Zapata is following in nephrology consultation. - Polymicrobial urinary tract infection, s/p treatment. - Left lung squamous cell carcinoma. Patient is not a candidate for chemotherapy. - Chronic obstructive pulmonary disease. Continue breathing treatment. - Multiple decubitus ulcers with history of debridement. Continue current wound care. Wound culture is growing polymicrobial organisms. Continue antibiotics per ID. - Methicillin-resistant Staphylococcus aureus nares colonization. - Cachexia. Optimize nutrition. - Dysphagia with G-tube placement. Continue G-tube feeding. Aspiration precaution. - Chronic urinary retention. Continue George catheter. - Hypothyroidism. TSH is within normal limits. Continue Synthroid. - Anemia of chronic disease. Continue to monitor hemoglobin and hematocrit. Blood transfusion as needed. - Right hand swelling, resolving. CT scan of the right hand is negative. Further recommendations based on clinical course. Plan of care discussed with Dr. Dozier. Subjective 24 Hr Interval Summary Free Text/Dictation nad, afebrile, hypokalemia, no new events reported over last night. dw staff. Eyes: no complaints ENT: no complaints Respiratory: no complaints Cardiovascular: no complaints Gastrointestinal: no complaints Genitourinary: no complaints Musculoskeletal: back pain Skin: no complaints Neurologic: no complaints Endocrine: no complaints Lymphatic: no complaints Exam/Review of Systems Vital Signs Vitals Vital Signs Date Time Temp Pulse Resp B/P Pulse Ox O2 Delivery O2 Flow Rate FiO2 10/22/16 08:01 97.8 97 19 126/88 100 10/22/16 08:00 Nasal Cannula 2.0 Intake and Output 10/21/16 10/21/16 10/22/16 15:00 23:00 07:00 Intake Total 920 ml 820 ml Output Total 1000 ml 1000 ml Balance -80 ml -180 ml Exam Constitutional: alert Psych: nl mood/affect Eyes: nl sclera ENMT: nl external ears & nose Neck: supple Respiratory: clear to auscultation Cardiovascular: nl pulses Gastrointestinal: non-tender, soft Musculoskeletal: muscle weakness Extremities: normal pulses Neurological: confused, nl speech Skin: other Lymph: nontender Results Result Diagram: 10/22/16 0516 10/22/16 0516 Results 24 hrs Laboratory Tests Test 10/22/16 05:16 White Blood Count 15.5 H Red Blood Count 3.48 L Hemoglobin 9.0 L Hematocrit 29.3 L Mean Corpuscular Volume 84.2 Mean Corpuscular Hemoglobin 25.9 L Mean Corpuscular Hemoglobin Concent 30.7 L Red Cell Distribution Width 17.8 H Platelet Count 314 Mean Platelet Volume 8.7 Neutrophils % 84.0 H Lymphocytes % 10.0 L Monocytes % 5.0 Eosinophils % Basophils % Promyelocytes % 1.0 H Nucleated Red Blood Cells % Neutrophils # 13.0 H Lymphocytes # 1.6 Monocytes # 0.8 Eosinophils # Basophils # Promyelocytes # 0.2 Nucleated Red Blood Cells # Differential Comment MANUAL DIF Spherocytes RARE Sodium Level 131 L Potassium Level 3.4 L Chloride Level 91 L Carbon Dioxide Level 32 H Anion Gap 11 Blood Urea Nitrogen 19 Creatinine 0.50 Glucose Level 157 Calcium Level 8.5 Medications Medications Current Medications Ondansetron HCl (Zofran Inj) 4 mg Q6 PRN IV NAUSEA AND/OR VOMITING; Start 09/26 at 22:30 Acetaminophen (Tylenol Tab) 650 mg Q6H PRN PO PAIN AND OR ELEVATED TEMP Last administered on 10/22/16 02:03; Admin Dose 650 MG; Start 09/26/16 at 23:00 Alprazolam (Xanax) 0.5 mg Q12 PRN PO ANXIETY Last administered on 10/04/16 20: 29; Admin Dose 0.5 MG; Start 09/26/16 at 23:00 Ascorbic Acid (Vitamin C) 500 mg BID PO Last administered on 10/22/16 09:13; Admin Dose 500 MG; Start 09/27/16 at 09:00 Atorvastatin Calcium (Lipitor) 20 mg QHS PO Last administered on 10/21/16 21:57 ; Admin Dose 20 MG; Start 09/27/16 at 21:00 Diazepam (Valium) 10 mg DAILY PO Last administered on 10/22/16 10:17; Admin Dose 10 MG; Start 09/27/16 at 09:00 Docusate Sodium (Colace) 100 mg Q12H PRN PO CONSTIPATION; Start 09/26/16 at 23: 00 Duloxetine HCl (Cymbalta) 20 mg DAILY PO Last administered on 10/21/16 09:07; Admin Dose 20 MG; Start 09/27/16 at 09:00 Zolpidem Tartrate (Ambien) 5 mg QHS PRN PO INSOMNIA Last administered on 02:35; Admin Dose 5 MG; Start 09/26/16 at 23:00 Collagenase (Santyl) 1 applic DAILY TOP Last administered on 10/21/16 09:09; Admin Dose 1 APPLIC; Start 09/27/16 at 09:00 Collagenase (Santyl) 1 applic PRN PRN TOP SOILED OR DISLODGED DRESSING; Start 09/27/16 at 05:00 Lansoprazole (Prevacid) 30 mg DAILY@06 GTB Last administered on 10/22/16 06:14 ; Admin Dose 30 MG; Start 09/28/16 at 06:00 Mupirocin (Bactroban) 1 applic BID TOP Last administered on 10/22/16 09:14; Admin Dose 1 APPLIC; Start 09/28/16 at 21:00 Cromolyn Sodium (Nasalcrom) 1 spray QID NASAL Last administered on 10/22/16 13: 54; Admin Dose 1 SPRAY; Start 09/29/16 at 11:02 Linezolid (Zyvox) 600 mg BID PO Last administered on 10/22/16 09:13; Admin Dose 600 MG; Start 09/29/16 at 21:00 Amikacin Sulfate (Amikacin Iv Per Pharmacy) AMIKACIN PER PHARMACY NOTE XX ; Start 09/29/16 at 15:30 Phenol (Cepastat Lozenge) 1 lozenge Q2H PRN MT SORE THROAT Last administered on 10/02/16 12:48; Admin Dose 1 LOZENGE; Start 10/01/16 at 19:00 IV Flush (NS 10 ml) 10 ml PRN PRN IV IV PROTOCOL; Start 10/02/16 at 19:00 Lactobacillus Acidophilus (Florajen3 Capsule) 1 each TID PO Last administered on 10/22/16 13:54; Admin Dose 1 EACH; Start 10/03/16 at 21:00 Hydromorphone HCl (Dilaudid) 0.5 mg Q4H PRN IV PAIN Last administered on 11:44; Admin Dose 0.5 MG; Start 10/06/16 at 18:30 Promethazine HCl/ Codeine (Phenergan/ Codeine) 10 ml BID PRN PO COUGH; Start at 20:30 Morphine Sulfate 60 mg 60 mg Q6 PO Last administered on 10/21/16 12:28; Admin Dose 60 MG; Start 10/09/16 at 12:00; Status Future Hold Metronidazole 250 mg/N/A 50 ml @ 50 mls/hr Q8 IVPB Last administered on 13:54; Admin Dose 50 MLS/HR; Start 10/10/16 at 22:00 Amikacin Sulfate/ Dextrose (Amikacin/D5W) 102.8 ml @ 102.8 mls/ hr Q36H IVPB Last administered on 10/22/16 09:13; Admin Dose 102.8 MLS/HR; Start 10/14/16 at 21:00 Sodium Chloride (Nacl) 1 gm TID PO Last administered on 10/22/16 13:54; Admin Dose 1 GM; Start 10/16/16 at 17:00 Fluconazole (Diflucan) 100 mg DAILY PO Last administered on 10/22/16 09:13; Admin Dose 100 MG; Start 10/17/16 at 13:00 VIKASH CASTANEDA October 22, 2016 16:05
[2016-10-22] MEDS ORDERED: POTASSIUM CHLORIDE 20 MEQ POWDER FOR ORAL SOLN GTB ONE (16:30)
[2016-10-22 20:17] VITALS: BP 140/80; RESP 20
[2016-10-22] MEDS: ATORVASTATIN 20 MG TAB PO SCH (21:45)
[2016-10-22] MEDS: ALBUTEROL/IPRATROPIUM (NEB) 3 ML AMP NEB PRN (22:15)
[2016-10-23] MEDS: ALBUTEROL/IPRATROPIUM (NEB) 3 ML AMP NEB PRN (06:01)
[2016-10-23] MEDS: LEVOTHYROXINE 125 MCG TAB PO SCH (06:09)
[2016-10-23] MEDS: LANSOPRAZOLE 30 MG CAP GTB SCH (06:09)
[2016-10-23] MEDS: metroNIDAZOLE 500 MG/NS (PMX) 250 MG in EVAC CONTAINER 1 BOTTLE IVPB SCH ×3 (06:10→22:29)
[2016-10-23 06:17] LABS: ADD SCAN DIFF NO
[2016-10-23 06:27] LABS: ABNORMAL IP MESSAGE 1; BASOPHIL # 0.1 10^3/ul (0.0-0.1); BASOPHILS % 0.4 % (0.0-2.0); EOSINOPHILS # 0.2 10^3/ul (0.0-0.5); HEMATOCRIT 28.9 % (37.0-47.0); HEMOGLOBIN 8.9 g/dl (12.0-16.0); LYMPHOCYTES # 1.9 10^3/ul (0.8-2.9); LYMPHOCYTES % 10.8 % (15.0-51.0); MEAN CORPUSCULAR HEMOGLOBIN 25.8 pg (29.0-33.0); MEAN CORPUSCULAR HGB CONC 30.8 g/dl (32.0-37.0); MEAN CORPUSCULAR VOLUME 83.8 fl (82.0-101.0); MEAN PLATELET VOLUME 9.2 fl (7.4-10.4); MONOCYTE # 2.2 10^3/ul (0.3-0.9); MONOCYTES % 12.6 % (0.0-11.0); NEUTROPHILS % 74.6 % (39.0-77.0); PLATELET COUNT 326 10^3/UL (140-415); RED BLOOD COUNT 3.45 10^6/ul (4.20-5.40); RED CELL DISTRIBUTION WIDTH 17.9 % (11.5-14.5); WHITE BLOOD COUNT 17.4 10^3/ul (4.8-10.8)
[2016-10-23 06:45] LABS: POTASSIUM 3.3 mmol/L (3.5-5.1)
[2016-10-23 06:47] LABS: CREATININE 0.53 mg/dl (0.44-1.00)
[2016-10-23 06:48] LABS: CALCIUM 8.3 mg/dl (8.4-10.2)
[2016-10-23 07:47] VITALS: BP 125/83; RESP 18
[2016-10-23] MEDS: L ACIDOPHIL/B LACTIS/B LONGUM CAPSULE PO SCH ×3 (09:00→21:54)
[2016-10-23] MEDS: DIAZEPAM 5 MG TAB PO SCH (09:00)
[2016-10-23] MEDS: ASCORBIC ACID 500 MG TAB PO SCH ×2 (09:02→21:19)
[2016-10-23] MEDS: FLUCONAZOLE 100 MG TAB PO SCH (09:02)
[2016-10-23] MEDS: SODIUM CHLORIDE 1 GM TAB PO SCH ×3 (09:02→21:19)
[2016-10-23] MEDS: DULOXETINE 20 MG CAP DR PO SCH (09:02)
[2016-10-23] MEDS: ZYVOX 600 MG TAB PO SCH ×2 (09:02→21:19)
[2016-10-23] MEDS: HYDROmorphONE 1 MG/ML SYG IV PRN ×3 (09:03→19:47)
[2016-10-23] MEDS: COLLAGENASE 30 GM TUBE TOP SCH ×2 (09:03→15:00)
[2016-10-23] MEDS: MUPIROCIN 2% 22 GM OINT TOP SCH ×2 (09:04→21:19)
[2016-10-23] MEDS: CROMOLYN 4% 26ML NAS INH NASAL SCH ×4 (09:04→21:23)
--- NOTE | 2016-10-23 10:55 | PN ---
Date/Time of Note Date/Time of Note DATE: 10/23/16 TIME: 10:53 Assessment/Plan Lines/Catheters IV Catheter Type (from Nrs): PICC Line George in Place (from Nrs): Yes Assessment/Plan Chief Complaint/Hosp Course 1. Multiple decubitus ulcers with debris -Offload -Optimize nutrition -Vitamin C -Local care -Debridement sacrococcyx prn 2. UTI s/p abx 3. 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 Acute on chronic diastolic heart failure -Judicious fluid management -Cardiac optimization 5. Hypertension -Diet and medication control 6. Chronic urinary retention with George 7. Depression. -Medical management 8. Hypothyroidism by history. -Synthroid 9. Anemia of chronic disease in addition to iron deficiency anemia. -Continue iron supplements. -Transfusion when necessary 10. Chronic pain syndrome. Continue pain management. Thank you Problems: Subjective 24 Hr Interval Summary Leukocytosis worsening. No fevers, chills, nausea, vomiting, or abdominal pain. No abnormal vaginal discharge. No bloating. No cough, sz, bloating. No robles/dizzy/visual or neuro changes. Exam/Review of Systems Vital Signs Vitals Vital Signs Date Time Temp Pulse Resp B/P Pulse Ox O2 Delivery O2 Flow Rate FiO2 10/23/16 07:47 98.1 114 18 125/83 97 10/23/16 06:01 Nasal Cannula 2.0 Intake and Output 10/22/16 10/22/16 10/23/16 14:59 22:59 06:59 Intake Total 202.8 ml 930 ml 820 ml Output Total 650 ml 550 ml Balance 202.8 ml 280 ml 270 ml Exam Free Text/Dictation GENERAL: Elderly, cachectic, no acute distress. HEENT: Head is atraumatic, normocephalic. Pupils equal, round, reactive to light and accommodation. Oral mucosa is pink and moist. NECK: Supple, no cervical lymphadenopathy LUNGS: Normal respiratory effort CARDIAC: S1 and S2. Irregular ABDOMEN: Flat, soft and nondistended. Nontender. No rebound or guarding. SKIN: Multiple decubitus wounds/ulcers buttock sacrum and right lower extremity EXTREMITIES: No edema. Pulses equal bilaterally, 2+. NEUROLOGICAL: Responsive VASCULAR: Refill is less than 2 seconds Results Result Diagram: 10/23/16 0455 10/23/16 0455 ZAK POSEY MD October 23, 2016 10:55
--- NOTE | 2016-10-23 12:00 | CONS ---
Date/Time of Note Date/Time of Note DATE: 10/23/16 TIME: 11:59 Assessment/Plan Assessment/Plan Additional Assessment/Plan SIRS Intermittent hypotension Diastolic congestive heart failure, compensated Pulmonary hypertension Preserved ejection fraction Tricuspid valve regurgitation Lung cancer -Blood pressure trend remains stable, would continue to hold any antihypertensives at the current time. Supplement magnesium Consultation Date/Type/Reason Admit Date/Time Sep 26, 2016 at 20:07 Type of Consultation: cv Referring Provider: DRE LOBATO MD 24 HR Interval Summary Free Text/Dictation Denies shortness of breath, chest pain Exam/Review of Systems Vital Signs Vitals Vital Signs Date Time Temp Pulse Resp B/P Pulse Ox O2 Delivery O2 Flow Rate FiO2 10/23/16 07:47 98.1 114 18 125/83 97 10/23/16 06:01 Nasal Cannula 2.0 Intake and Output 10/22/16 10/22/16 10/23/16 15:00 23:00 07:00 Intake Total 202.8 ml 930 ml 820 ml Output Total 650 ml 550 ml Balance 202.8 ml 280 ml 270 ml Exam Following commands, no apparent distress Constitutional: alert, frail Head: normocephalic Respiratory: other (Coarse breath sounds bilaterally, no wheezing) Cardiovascular: other (s1s2 heard), regular rate and rhythm Gastrointestinal: bowel sounds, non-tender, soft Extremities: other (No edema) Results Result Diagram: 10/23/16 0455 10/23/16 0455 Results 24 hrs Laboratory Tests Test 10/23/16 04:55 White Blood Count 17.4 H Red Blood Count 3.45 L Hemoglobin 8.9 L Hematocrit 28.9 L Mean Corpuscular Volume 83.8 Mean Corpuscular Hemoglobin 25.8 L Mean Corpuscular Hemoglobin Concent 30.8 L Red Cell Distribution Width 17.9 H Platelet Count 326 Mean Platelet Volume 9.2 Neutrophils % 74.6 Lymphocytes % 10.8 L Monocytes % 12.6 H Eosinophils % 1.0 Basophils % 0.4 Nucleated Red Blood Cells % 0.0 Neutrophils # 13.0 H Lymphocytes # 1.9 Monocytes # 2.2 H Eosinophils # 0.2 Basophils # 0.1 Nucleated Red Blood Cells # 0.0 Sodium Level 132 L Potassium Level 3.3 L Chloride Level 89 L Carbon Dioxide Level 31 Anion Gap 15 Blood Urea Nitrogen 19 Creatinine 0.53 Glucose Level 123 Calcium Level 8.3 L Magnesium Level 1.4 L Medications Medications Current Medications Ondansetron HCl (Zofran Inj) 4 mg Q6 PRN IV NAUSEA AND/OR VOMITING; Start 09/26 at 22:30 Acetaminophen (Tylenol Tab) 650 mg Q6H PRN PO PAIN AND OR ELEVATED TEMP Last administered on 10/22/16 02:03; Admin Dose 650 MG; Start 09/26/16 at 23:00 Alprazolam (Xanax) 0.5 mg Q12 PRN PO ANXIETY Last administered on 10/04/16 20: 29; Admin Dose 0.5 MG; Start 09/26/16 at 23:00 Ascorbic Acid (Vitamin C) 500 mg BID PO Last administered on 10/23/16 09:02; Admin Dose 500 MG; Start 09/27/16 at 09:00 Atorvastatin Calcium (Lipitor) 20 mg QHS PO Last administered on 10/22/16 21:45 ; Admin Dose 20 MG; Start 09/27/16 at 21:00 Diazepam (Valium) 10 mg DAILY PO Last administered on 10/22/16 10:17; Admin Dose 10 MG; Start 09/27/16 at 09:00 Docusate Sodium (Colace) 100 mg Q12H PRN PO CONSTIPATION; Start 09/26/16 at 23: 00 Duloxetine HCl (Cymbalta) 20 mg DAILY PO Last administered on 10/23/16 09:02; Admin Dose 20 MG; Start 09/27/16 at 09:00 Zolpidem Tartrate (Ambien) 5 mg QHS PRN PO INSOMNIA Last administered on 02:35; Admin Dose 5 MG; Start 09/26/16 at 23:00 Collagenase (Santyl) 1 applic DAILY TOP Last administered on 10/23/16 09:03; Admin Dose 1 APPLIC; Start 09/27/16 at 09:00 Collagenase (Santyl) 1 applic PRN PRN TOP SOILED OR DISLODGED DRESSING; Start 09/27/16 at 05:00 Lansoprazole (Prevacid) 30 mg DAILY@06 GTB Last administered on 10/23/16 06:09 ; Admin Dose 30 MG; Start 09/28/16 at 06:00 Mupirocin (Bactroban) 1 applic BID TOP Last administered on 10/23/16 09:04; Admin Dose 1 APPLIC; Start 09/28/16 at 21:00 Cromolyn Sodium (Nasalcrom) 1 spray QID NASAL Last administered on 10/23/16 09: 04; Admin Dose 1 SPRAY; Start 09/29/16 at 11:02 Linezolid (Zyvox) 600 mg BID PO Last administered on 10/23/16 09:02; Admin Dose 600 MG; Start 09/29/16 at 21:00 Amikacin Sulfate (Amikacin Iv Per Pharmacy) AMIKACIN PER PHARMACY NOTE XX ; Start 09/29/16 at 15:30 Phenol (Cepastat Lozenge) 1 lozenge Q2H PRN MT SORE THROAT Last administered on 10/02/16 12:48; Admin Dose 1 LOZENGE; Start 10/01/16 at 19:00 IV Flush (NS 10 ml) 10 ml PRN PRN IV IV PROTOCOL; Start 10/02/16 at 19:00 Lactobacillus Acidophilus (Florajen3 Capsule) 1 each TID PO Last administered on 10/22/16 21:45; Admin Dose 1 EACH; Start 10/03/16 at 21:00 Hydromorphone HCl (Dilaudid) 0.5 mg Q4H PRN IV PAIN Last administered on 09:03; Admin Dose 0.5 MG; Start 10/06/16 at 18:30 Promethazine HCl/ Codeine (Phenergan/ Codeine) 10 ml BID PRN PO COUGH; Start at 20:30 Morphine Sulfate 60 mg 60 mg Q6 PO Last administered on 10/21/16 12:28; Admin Dose 60 MG; Start 10/09/16 at 12:00; Status Future Hold Metronidazole 250 mg/N/A 50 ml @ 50 mls/hr Q8 IVPB Last administered on 06:10; Admin Dose 50 MLS/HR; Start 10/10/16 at 22:00 Amikacin Sulfate/ Dextrose (Amikacin/D5W) 102.8 ml @ 102.8 mls/ hr Q36H IVPB Last administered on 10/22/16 09:13; Admin Dose 102.8 MLS/HR; Start 10/14/16 at 21:00 Sodium Chloride (Nacl) 1 gm TID PO Last administered on 10/23/16 09:02; Admin Dose 1 GM; Start 10/16/16 at 17:00 Fluconazole (Diflucan) 100 mg DAILY PO Last administered on 10/23/16 09:02; Admin Dose 100 MG; Start 10/17/16 at 13:00 Artemio Tipton DO October 23, 2016 12:00
--- NOTE | 2016-10-23 12:26 | CONS ---
Date/Time of Note Date/Time of Note DATE: 10/23/16 TIME: 12:25 Assessment/Plan Assessment/Plan Chief Complaint/Hosp Course SUBJECTIVE: No events overnight. The patient is alert, denies pain, looks comfortable, no fevers. ANTIMICROBIALS: 1. Amikacin. 2. Fluconazole. 3. Flagyl. 4. Zyvox. 5. Topical Bactroban to nares. INDWELLINGS: PEG, George, PICC line. PHYSICAL EXAMINATION: GENERAL: A cachectic elderly woman who is awake, in no distress. HEENT: Head atraumatic, normocephalic. Sclerae anicteric. Buccal mucosa dry. NECK: Supple. CHEST: Rise symmetrical. Breath sounds clear, diminished to bases. HEART: S1, S2. ABDOMEN: Soft, bowel sounds present. EXTREMITIES: Without cyanosis. ASSESSMENT: 1. Systemic inflammatory response syndrome with persistent leukocytosis secondary to infected wounds, and possibly secondary to malignancy. 2. Lung cancer. 3. Cachexia. 4. Sacral decubitus with exposed bone and culture growing multidrug resistant organisms, status post debridement with wound VAC application. 5. History of Clostridium difficile, pneumonia and urinary tract infection. 6. Oral thrush. PLAN: The patient remains stable. Continue present care, continue antibiotics, repeat wound cx. DW staff Problems: Consultation Date/Type/Reason Admit Date/Time Sep 26, 2016 at 20:07 Type of Consultation: ID Referring Provider: DRE LOBATO MD Exam/Review of Systems Vital Signs Vitals Vital Signs Date Time Temp Pulse Resp B/P Pulse Ox O2 Delivery O2 Flow Rate FiO2 10/23/16 07:47 98.1 114 18 125/83 97 10/23/16 06:01 Nasal Cannula 2.0 Intake and Output 10/22/16 10/22/16 10/23/16 15:00 23:00 07:00 Intake Total 202.8 ml 930 ml 820 ml Output Total 650 ml 550 ml Balance 202.8 ml 280 ml 270 ml Results Result Diagram: 10/23/16 0455 10/23/16 0455 Results 24 hrs Laboratory Tests Test 10/23/16 04:55 White Blood Count 17.4 H Red Blood Count 3.45 L Hemoglobin 8.9 L Hematocrit 28.9 L Mean Corpuscular Volume 83.8 Mean Corpuscular Hemoglobin 25.8 L Mean Corpuscular Hemoglobin Concent 30.8 L Red Cell Distribution Width 17.9 H Platelet Count 326 Mean Platelet Volume 9.2 Neutrophils % 74.6 Lymphocytes % 10.8 L Monocytes % 12.6 H Eosinophils % 1.0 Basophils % 0.4 Nucleated Red Blood Cells % 0.0 Neutrophils # 13.0 H Lymphocytes # 1.9 Monocytes # 2.2 H Eosinophils # 0.2 Basophils # 0.1 Nucleated Red Blood Cells # 0.0 Sodium Level 132 L Potassium Level 3.3 L Chloride Level 89 L Carbon Dioxide Level 31 Anion Gap 15 Blood Urea Nitrogen 19 Creatinine 0.53 Glucose Level 123 Calcium Level 8.3 L Magnesium Level 1.4 L Medications Medications Current Medications Ondansetron HCl (Zofran Inj) 4 mg Q6 PRN IV NAUSEA AND/OR VOMITING; Start 09/26 at 22:30 Acetaminophen (Tylenol Tab) 650 mg Q6H PRN PO PAIN AND OR ELEVATED TEMP Last administered on 10/22/16 02:03; Admin Dose 650 MG; Start 09/26/16 at 23:00 Alprazolam (Xanax) 0.5 mg Q12 PRN PO ANXIETY Last administered on 10/04/16 20: 29; Admin Dose 0.5 MG; Start 09/26/16 at 23:00 Ascorbic Acid (Vitamin C) 500 mg BID PO Last administered on 10/23/16 09:02; Admin Dose 500 MG; Start 09/27/16 at 09:00 Atorvastatin Calcium (Lipitor) 20 mg QHS PO Last administered on 10/22/16 21:45 ; Admin Dose 20 MG; Start 09/27/16 at 21:00 Diazepam (Valium) 10 mg DAILY PO Last administered on 10/22/16 10:17; Admin Dose 10 MG; Start 09/27/16 at 09:00 Docusate Sodium (Colace) 100 mg Q12H PRN PO CONSTIPATION; Start 09/26/16 at 23: 00 Duloxetine HCl (Cymbalta) 20 mg DAILY PO Last administered on 10/23/16 09:02; Admin Dose 20 MG; Start 09/27/16 at 09:00 Zolpidem Tartrate (Ambien) 5 mg QHS PRN PO INSOMNIA Last administered on 02:35; Admin Dose 5 MG; Start 09/26/16 at 23:00 Collagenase (Santyl) 1 applic DAILY TOP Last administered on 10/23/16 09:03; Admin Dose 1 APPLIC; Start 09/27/16 at 09:00 Collagenase (Santyl) 1 applic PRN PRN TOP SOILED OR DISLODGED DRESSING; Start 09/27/16 at 05:00 Lansoprazole (Prevacid) 30 mg DAILY@06 GTB Last administered on 10/23/16 06:09 ; Admin Dose 30 MG; Start 09/28/16 at 06:00 Mupirocin (Bactroban) 1 applic BID TOP Last administered on 10/23/16 09:04; Admin Dose 1 APPLIC; Start 09/28/16 at 21:00 Cromolyn Sodium (Nasalcrom) 1 spray QID NASAL Last administered on 10/23/16 09: 04; Admin Dose 1 SPRAY; Start 09/29/16 at 11:02 Linezolid (Zyvox) 600 mg BID PO Last administered on 10/23/16 09:02; Admin Dose 600 MG; Start 09/29/16 at 21:00 Amikacin Sulfate (Amikacin Iv Per Pharmacy) AMIKACIN PER PHARMACY NOTE XX ; Start 09/29/16 at 15:30 Phenol (Cepastat Lozenge) 1 lozenge Q2H PRN MT SORE THROAT Last administered on 10/02/16 12:48; Admin Dose 1 LOZENGE; Start 10/01/16 at 19:00 IV Flush (NS 10 ml) 10 ml PRN PRN IV IV PROTOCOL; Start 10/02/16 at 19:00 Lactobacillus Acidophilus (Florajen3 Capsule) 1 each TID PO Last administered on 10/22/16 21:45; Admin Dose 1 EACH; Start 10/03/16 at 21:00 Hydromorphone HCl (Dilaudid) 0.5 mg Q4H PRN IV PAIN Last administered on 09:03; Admin Dose 0.5 MG; Start 10/06/16 at 18:30 Promethazine HCl/ Codeine (Phenergan/ Codeine) 10 ml BID PRN PO COUGH; Start at 20:30 Morphine Sulfate 60 mg 60 mg Q6 PO Last administered on 10/21/16 12:28; Admin Dose 60 MG; Start 10/09/16 at 12:00; Status Future Hold Metronidazole 250 mg/N/A 50 ml @ 50 mls/hr Q8 IVPB Last administered on 06:10; Admin Dose 50 MLS/HR; Start 10/10/16 at 22:00 Amikacin Sulfate/ Dextrose (Amikacin/D5W) 102.8 ml @ 102.8 mls/ hr Q36H IVPB Last administered on 10/22/16 09:13; Admin Dose 102.8 MLS/HR; Start 10/14/16 at 21:00 Sodium Chloride (Nacl) 1 gm TID PO Last administered on 10/23/16 09:02; Admin Dose 1 GM; Start 10/16/16 at 17:00 Fluconazole 100 mg 100 mg DAILY PO Last administered on 10/23/16 09:02; Admin Dose 100 MG; Start 10/17/16 at 13:00 Magnesium Sulfate (Magnesium Sulfate 2 Gm/50 ml) 50 ml @ 25 mls/hr ONCE ONCE IVPB ; Start 10/23/16 at 13:00; Stop 10/23/16 at 14:59 RUBIN MAYEN NP October 23, 2016 12:26
[2016-10-23] MEDS ORDERED: MAGNESIUM SULFATE 2 GM/50 ML 50 ML IVPB ONE (13:00)
--- NOTE | 2016-10-23 14:45 | PN ---
Date/Time of Note Date/Time of Note DATE: 10/23/16 TIME: 14:43 Assessment/Plan VTE Prophylaxis VTE Prophylaxis Intervention: SCD's Lines/Catheters IV [facility]ter Type (from [facility]): PICC Line Central line still needed: Yes Urinary Cath still in place: Yes Reason Cath still needed: urinary retention Assessment/Plan Chief Complaint/Hosp Course ASSESSMENT AND PLAN: - Recurrent sepsis, resolving. Dr. Coleman is following in infection disease consultation. Continue antibiotics per ID. - Persistent leukocytosis secondary to multiple wounds and malignancy. - Hyponatremia, Dr. Zapata is following in nephrology consultation. - Polymicrobial urinary tract infection, s/p treatment. - Left lung squamous cell carcinoma. Patient is not a candidate for chemotherapy. - Chronic obstructive pulmonary disease. Continue breathing treatment. - Multiple decubitus ulcers with history of debridement. Continue current wound care. Wound culture is growing polymicrobial organisms. Continue antibiotics per ID. - Methicillin-resistant Staphylococcus aureus nares colonization. - Cachexia. Optimize nutrition. - Dysphagia with G-tube placement. Continue G-tube feeding. Aspiration precaution. - Chronic urinary retention. Continue George catheter. - Hypothyroidism. TSH is within normal limits. Continue Synthroid. - Anemia of chronic disease. Continue to monitor hemoglobin and hematocrit. Blood transfusion as needed. Further recommendations based on clinical course. Plan of care discussed with Dr. Dozier. Problems: Subjective 24 Hr Interval Summary Free Text/Dictation Patient was increased leukocytosis today no fever, intermittent tachycardia, tolerates G-tube feeding, pain is well controlled. Exam/Review of Systems Vital Signs Vitals Vital Signs Date Time Temp Pulse Resp B/P Pulse Ox O2 Delivery O2 Flow Rate FiO2 10/23/16 07:47 98.1 114 18 125/83 97 10/23/16 06:01 Nasal Cannula 2.0 Intake and Output 10/22/16 10/22/16 10/23/16 15:00 23:00 07:00 Intake Total 202.8 ml 930 ml 820 ml Output Total 650 ml 550 ml Balance 202.8 ml 280 ml 270 ml Exam Constitutional: alert, oriented Psych: no complaints Head: atraumatic, normocephalic Eyes: nl conjunctiva ENMT: nl external ears & nose Neck: non-tender, supple Respiratory: clear to auscultation, normal air movement Cardiovascular: nl pulses, regular rate and rhythm Gastrointestinal: non-tender, other (G-tube), soft Musculoskeletal: nl extremities to inspection Extremities: normal pulses Neurological: [employer] II-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 Results Result Diagram: 10/23/16 0455 10/23/16 0455 Results 24 hrs Laboratory Tests Test 10/23/16 04:55 White Blood Count 17.4 H Red Blood Count 3.45 L Hemoglobin 8.9 L Hematocrit 28.9 L Mean Corpuscular Volume 83.8 Mean Corpuscular Hemoglobin 25.8 L Mean Corpuscular Hemoglobin Concent 30.8 L Red Cell Distribution Width 17.9 H Platelet Count 326 Mean Platelet Volume 9.2 Neutrophils % 74.6 Lymphocytes % 10.8 L Monocytes % 12.6 H Eosinophils % 1.0 Basophils % 0.4 Nucleated Red Blood Cells % 0.0 Neutrophils # 13.0 H Lymphocytes # 1.9 Monocytes # 2.2 H Eosinophils # 0.2 Basophils # 0.1 Nucleated Red Blood Cells # 0.0 Sodium Level 132 L Potassium Level 3.3 L Chloride Level 89 L Carbon Dioxide Level 31 Anion Gap 15 Blood Urea Nitrogen 19 Creatinine 0.53 Glucose Level 123 Calcium Level 8.3 L Magnesium Level 1.4 L Medications Medications Current Medications Ondansetron HCl (Zofran Inj) 4 mg Q6 PRN IV NAUSEA AND/OR VOMITING; Start 09/26 at 22:30 Acetaminophen (Tylenol Tab) 650 mg Q6H PRN PO PAIN AND OR ELEVATED TEMP Last administered on 10/22/16 02:03; Admin Dose 650 MG; Start 09/26/16 at 23:00 Alprazolam (Xanax) 0.5 mg Q12 PRN PO ANXIETY Last administered on 10/04/16 20: 29; Admin Dose 0.5 MG; Start 09/26/16 at 23:00 Ascorbic Acid (Vitamin C) 500 mg BID PO Last administered on 10/23/16 09:02; Admin Dose 500 MG; Start 09/27/16 at 09:00 Atorvastatin Calcium (Lipitor) 20 mg QHS PO Last administered on 10/22/16 21:45 ; Admin Dose 20 MG; Start 09/27/16 at 21:00 Diazepam (Valium) 10 mg DAILY PO Last administered on 10/22/16 10:17; Admin Dose 10 MG; Start 09/27/16 at 09:00 Docusate Sodium (Colace) 100 mg Q12H PRN PO CONSTIPATION; Start 09/26/16 at 23: 00 Duloxetine HCl (Cymbalta) 20 mg DAILY PO Last administered on 10/23/16 09:02; Admin Dose 20 MG; Start 09/27/16 at 09:00 Zolpidem Tartrate (Ambien) 5 mg QHS PRN PO INSOMNIA Last administered on 02:35; Admin Dose 5 MG; Start 09/26/16 at 23:00 Collagenase (Santyl) 1 applic DAILY TOP Last administered on 10/23/16 09:03; Admin Dose 1 APPLIC; Start 09/27/16 at 09:00 Collagenase (Santyl) 1 applic PRN PRN TOP SOILED OR DISLODGED DRESSING; Start 09/27/16 at 05:00 Lansoprazole (Prevacid) 30 mg DAILY@06 GTB Last administered on 10/23/16 06:09 ; Admin Dose 30 MG; Start 09/28/16 at 06:00 Mupirocin (Bactroban) 1 applic BID TOP Last administered on 10/23/16 09:04; Admin Dose 1 APPLIC; Start 09/28/16 at 21:00 Cromolyn Sodium (Nasalcrom) 1 spray QID NASAL Last administered on 10/23/16 13: 13; Admin Dose 1 SPRAY; Start 09/29/16 at 11:02 Linezolid (Zyvox) 600 mg BID PO Last administered on 10/23/16 09:02; Admin Dose 600 MG; Start 09/29/16 at 21:00 Amikacin Sulfate (Amikacin Iv Per Pharmacy) AMIKACIN PER PHARMACY NOTE XX ; Start 09/29/16 at 15:30 Phenol (Cepastat Lozenge) 1 lozenge Q2H PRN MT SORE THROAT Last administered on 10/02/16 12:48; Admin Dose 1 LOZENGE; Start 10/01/16 at 19:00 IV Flush (NS 10 ml) 10 ml PRN PRN IV IV PROTOCOL; Start 10/02/16 at 19:00 Lactobacillus Acidophilus (Florajen3 Capsule) 1 each TID PO Last administered on 10/22/16 21:45; Admin Dose 1 EACH; Start 10/03/16 at 21:00 Hydromorphone HCl (Dilaudid) 0.5 mg Q4H PRN IV PAIN Last administered on 09:03; Admin Dose 0.5 MG; Start 10/06/16 at 18:30 Promethazine HCl/ Codeine (Phenergan/ Codeine) 10 ml BID PRN PO COUGH; Start at 20:30 Morphine Sulfate 60 mg 60 mg Q6 PO Last administered on 10/21/16 12:28; Admin Dose 60 MG; Start 10/09/16 at 12:00; Status Future Hold Metronidazole 250 mg/N/A 50 ml @ 50 mls/hr Q8 IVPB Last administered on 13:13; Admin Dose 50 MLS/HR; Start 10/10/16 at 22:00 Amikacin Sulfate/ Dextrose (Amikacin/D5W) 102.8 ml @ 102.8 mls/ hr Q36H IVPB Last administered on 10/22/16 09:13; Admin Dose 102.8 MLS/HR; Start 10/14/16 at 21:00 Sodium Chloride (Nacl) 1 gm TID PO Last administered on 10/23/16 13:12; Admin Dose 1 GM; Start 10/16/16 at 17:00 Fluconazole 100 mg 100 mg DAILY PO Last administered on 10/23/16 09:02; Admin Dose 100 MG; Start 10/17/16 at 13:00 Magnesium Sulfate (Magnesium Sulfate 2 Gm/50 ml) 50 ml @ 25 mls/hr ONCE ONCE IVPB ; Start 10/23/16 at 13:00; Stop 10/23/16 at 14:59 REBECCA ISLAS October 23, 2016 14:45
[2016-10-23] MEDS ORDERED: POTASSIUM CHLORIDE 20 MEQ POWDER FOR ORAL SOLN GTB ONE (16:30)
--- NOTE | 2016-10-23 16:49 | CONS ---
Date/Time of Note Date/Time of Note DATE: 10/23/16 TIME: 16:47 Assessment/Plan Assessment/Plan Additional Assessment/Plan 1. Hyponatremia, 2. Status post acute kidney injury on chronic kidney disease due to systemic inflammatory response syndrome. 3. Systemic inflammatory response syndrome. 4. History of recurrent polymicrobial urinary tract infections. 5. History of dementia. 6. History of previous cerebrovascular accident. 7. History of chronic obstructive pulmonary disease, recently had acute respiratory failure secondary to chronic obstructive pulmonary disease exacerbation. 8. History of urinary retention with a chronic George catheter in place. 9. Chronic debility with cachexia. 10. Multiple decubitus ulcers with a history of debridement. 11. History of degenerative joint disease of spine. 12. History of hypertension and hypertensive heart disease with mild to moderate concentric left ventricular hypertrophy and echocardiogram with diastolic dysfunction stage I. PLAN: Na improved to 132, pt likey has Component of SAIDH causing hypoantreia, due to acute on chronic pain more alert today KCl 20mEQ IV x 1 dose now, Magnesium sulfate 2 gram IV x 1 dose now continue Na Chloride tablet 1 gram PO TID replace K as needed will follow up Consultation Date/Type/Reason Admit Date/Time Sep 26, 2016 at 20:07 Type of Consultation: NEPHROLOGY Referring Provider: DRE LOBATO MD 24 HR Interval Summary Free Text/Dictation Na slightly improved to 132, Bp stable, Mag low, K low Exam/Review of Systems Vital Signs Vitals Vital Signs Date Time Temp Pulse Resp B/P Pulse Ox O2 Delivery O2 Flow Rate FiO2 10/23/16 07:47 98.1 114 18 125/83 97 10/23/16 06:01 Nasal Cannula 2.0 Intake and Output 10/22/16 10/22/16 10/23/16 15:00 23:00 07:00 Intake Total 202.8 ml 930 ml 820 ml Output Total 650 ml 550 ml Balance 202.8 ml 280 ml 270 ml Results Result Diagram: 10/23/16 0455 10/23/16 0455 Results 24 hrs Laboratory Tests Test 10/23/16 04:55 White Blood Count 17.4 H Red Blood Count 3.45 L Hemoglobin 8.9 L Hematocrit 28.9 L Mean Corpuscular Volume 83.8 Mean Corpuscular Hemoglobin 25.8 L Mean Corpuscular Hemoglobin Concent 30.8 L Red Cell Distribution Width 17.9 H Platelet Count 326 Mean Platelet Volume 9.2 Neutrophils % 74.6 Lymphocytes % 10.8 L Monocytes % 12.6 H Eosinophils % 1.0 Basophils % 0.4 Nucleated Red Blood Cells % 0.0 Neutrophils # 13.0 H Lymphocytes # 1.9 Monocytes # 2.2 H Eosinophils # 0.2 Basophils # 0.1 Nucleated Red Blood Cells # 0.0 Sodium Level 132 L Potassium Level 3.3 L Chloride Level 89 L Carbon Dioxide Level 31 Anion Gap 15 Blood Urea Nitrogen 19 Creatinine 0.53 Glucose Level 123 Calcium Level 8.3 L Magnesium Level 1.4 L Medications Medications Current Medications Ondansetron HCl (Zofran Inj) 4 mg Q6 PRN IV NAUSEA AND/OR VOMITING; Start 09/26 at 22:30 Acetaminophen (Tylenol Tab) 650 mg Q6H PRN PO PAIN AND OR ELEVATED TEMP Last administered on 10/22/16 02:03; Admin Dose 650 MG; Start 09/26/16 at 23:00 Alprazolam (Xanax) 0.5 mg Q12 PRN PO ANXIETY Last administered on 10/04/16 20: 29; Admin Dose 0.5 MG; Start 09/26/16 at 23:00 Ascorbic Acid (Vitamin C) 500 mg BID PO Last administered on 10/23/16 09:02; Admin Dose 500 MG; Start 09/27/16 at 09:00 Atorvastatin Calcium (Lipitor) 20 mg QHS PO Last administered on 10/22/16 21:45 ; Admin Dose 20 MG; Start 09/27/16 at 21:00 Diazepam (Valium) 10 mg DAILY PO Last administered on 10/22/16 10:17; Admin Dose 10 MG; Start 09/27/16 at 09:00 Docusate Sodium (Colace) 100 mg Q12H PRN PO CONSTIPATION; Start 09/26/16 at 23: 00 Duloxetine HCl (Cymbalta) 20 mg DAILY PO Last administered on 10/23/16 09:02; Admin Dose 20 MG; Start 09/27/16 at 09:00 Zolpidem Tartrate (Ambien) 5 mg QHS PRN PO INSOMNIA Last administered on 02:35; Admin Dose 5 MG; Start 09/26/16 at 23:00 Collagenase (Santyl) 1 applic DAILY TOP Last administered on 10/23/16 15:00; Admin Dose 1 APPLIC; Start 09/27/16 at 09:00 Collagenase (Santyl) 1 applic PRN PRN TOP SOILED OR DISLODGED DRESSING; Start 09/27/16 at 05:00 Lansoprazole (Prevacid) 30 mg DAILY@06 GTB Last administered on 10/23/16 06:09 ; Admin Dose 30 MG; Start 09/28/16 at 06:00 Mupirocin (Bactroban) 1 applic BID TOP Last administered on 10/23/16 09:04; Admin Dose 1 APPLIC; Start 09/28/16 at 21:00 Cromolyn Sodium (Nasalcrom) 1 spray QID NASAL Last administered on 10/23/16 13: 13; Admin Dose 1 SPRAY; Start 09/29/16 at 11:02 Linezolid (Zyvox) 600 mg BID PO Last administered on 10/23/16 09:02; Admin Dose 600 MG; Start 09/29/16 at 21:00 Amikacin Sulfate (Amikacin Iv Per Pharmacy) AMIKACIN PER PHARMACY NOTE XX ; Start 09/29/16 at 15:30 Phenol (Cepastat Lozenge) 1 lozenge Q2H PRN MT SORE THROAT Last administered on 10/02/16 12:48; Admin Dose 1 LOZENGE; Start 10/01/16 at 19:00 IV Flush (NS 10 ml) 10 ml PRN PRN IV IV PROTOCOL; Start 10/02/16 at 19:00 Lactobacillus Acidophilus (Florajen3 Capsule) 1 each TID PO Last administered on 10/23/16 14:47; Admin Dose 1 EACH; Start 10/03/16 at 21:00 Hydromorphone HCl (Dilaudid) 0.5 mg Q4H PRN IV PAIN Last administered on 14:47; Admin Dose 0.5 MG; Start 10/06/16 at 18:30 Promethazine HCl/ Codeine (Phenergan/ Codeine) 10 ml BID PRN PO COUGH; Start at 20:30 Morphine Sulfate 60 mg 60 mg Q6 PO Last administered on 10/21/16 12:28; Admin Dose 60 MG; Start 10/09/16 at 12:00; Status Future Hold Metronidazole 250 mg/N/A 50 ml @ 50 mls/hr Q8 IVPB Last administered on 13:13; Admin Dose 50 MLS/HR; Start 10/10/16 at 22:00 Amikacin Sulfate/ Dextrose (Amikacin/D5W) 102.8 ml @ 102.8 mls/ hr Q36H IVPB Last administered on 10/22/16 09:13; Admin Dose 102.8 MLS/HR; Start 10/14/16 at 21:00 Sodium Chloride (Nacl) 1 gm TID PO Last administered on 10/23/16 13:12; Admin Dose 1 GM; Start 10/16/16 at 17:00 Fluconazole (Diflucan) 100 mg DAILY PO Last administered on 10/23/16 09:02; Admin Dose 100 MG; Start 10/17/16 at 13:00 DIONNE SAUCEDA MD October 23, 2016 16:49
[2016-10-23] MEDS ORDERED: POTASSIUM CHLORIDE 20 MEQ in SOD CHLORIDE 0.9% 100 ML IVPB ONE (18:00)
[2016-10-23] MEDS: ACETAMINOPHEN 325 MG TAB PO PRN (18:08)
[2016-10-23 20:02] VITALS: BP 123/82; RESP 17
[2016-10-23] MEDS: AMIKACIN 700 MG in DEXTROSE 5% 100 ML IVPB SCH (21:17)
[2016-10-23] MEDS: ATORVASTATIN 20 MG TAB PO SCH (21:19)
[2016-10-24] MEDS: HYDROmorphONE 1 MG/ML SYG IV PRN ×5 (00:10→21:32)
[2016-10-24] MEDS ORDERED: LIDOCAINE 1%/EPI 30 ML INJ INJ STA ×2 (02:49→10:50)
[2016-10-24] MEDS ORDERED: SILVER NITRATE SWAB TOP ONE (03:30)
[2016-10-24 05:21] LABS: ADD SCAN DIFF NO
[2016-10-24 05:35] LABS: ABNORMAL IP MESSAGE 1; BASOPHIL # 0.1 10^3/ul (0.0-0.1); BASOPHILS % 0.5 % (0.0-2.0); EOSINOPHILS # 0.4 10^3/ul (0.0-0.5); EOSINOPHILS % 1.9 % (0.0-7.0); HEMATOCRIT 27.8 % (37.0-47.0); HEMOGLOBIN 8.6 g/dl (12.0-16.0); LYMPHOCYTES # 1.9 10^3/ul (0.8-2.9); LYMPHOCYTES % 10.4 % (15.0-51.0); MEAN CORPUSCULAR HEMOGLOBIN 25.6 pg (29.0-33.0); MEAN CORPUSCULAR HGB CONC 30.9 g/dl (32.0-37.0); MEAN CORPUSCULAR VOLUME 82.7 fl (82.0-101.0); NEUTROPHIL # 13.8 10^3/ul (1.6-7.5); NEUTROPHILS % 75.5 % (39.0-77.0); PLATELET COUNT 328 10^3/UL (140-415); RED BLOOD COUNT 3.36 10^6/ul (4.20-5.40); WHITE BLOOD COUNT 18.3 10^3/ul (4.8-10.8)
[2016-10-24 05:52] LABS: CALCIUM 8.3 mg/dl (8.4-10.2); CREATININE 0.43 mg/dl (0.44-1.00); POTASSIUM 3.6 mmol/L (3.5-5.1)
[2016-10-24] MEDS: ALBUTEROL/IPRATROPIUM (NEB) 3 ML AMP NEB PRN (05:55)
[2016-10-24] MEDS: LANSOPRAZOLE 30 MG CAP GTB SCH (06:07)
[2016-10-24] MEDS: metroNIDAZOLE 500 MG/NS (PMX) 250 MG in EVAC CONTAINER 1 BOTTLE IVPB SCH ×3 (06:07→21:32)
[2016-10-24] MEDS: LEVOTHYROXINE 125 MCG TAB PO SCH (06:07)
[2016-10-24 07:57] VITALS: BP 116/79; RESP 18
[2016-10-24] MEDS: COLLAGENASE 30 GM TUBE TOP SCH (09:00)
[2016-10-24] MEDS: CROMOLYN 4% 26ML NAS INH NASAL SCH ×4 (09:00→21:32)
[2016-10-24] MEDS: L ACIDOPHIL/B LACTIS/B LONGUM CAPSULE PO SCH ×3 (09:18→21:34)
[2016-10-24] MEDS: ASCORBIC ACID 500 MG TAB PO SCH ×2 (09:23→21:32)
[2016-10-24] MEDS: FLUCONAZOLE 100 MG TAB PO SCH (09:23)
[2016-10-24] MEDS: SODIUM CHLORIDE 1 GM TAB PO SCH ×3 (09:23→21:33)
[2016-10-24] MEDS: ZYVOX 600 MG TAB PO SCH ×2 (09:24→21:33)
[2016-10-24] MEDS: DIAZEPAM 5 MG TAB PO SCH (09:24)
[2016-10-24] MEDS: DULOXETINE 20 MG CAP DR PO SCH (09:24)
[2016-10-24] MEDS: MUPIROCIN 2% 22 GM OINT TOP SCH ×2 (09:29→21:34)
[2016-10-24] MEDS ORDERED: LIDOCAINE 2%/EPI (MDV) 20ML INJ INJ SCH (11:00)
[2016-10-24] MEDS ORDERED: LIDOCAINE 2%/EPI MPF (SDV) 20 ML VIAL INJ SCH (11:30)
--- NOTE | 2016-10-24 12:45 | CONS ---
Date/Time of Note Date/Time of Note DATE: 10/24/16 TIME: 12:42 Assessment/Plan Assessment/Plan Additional Assessment/Plan 1. Hyponatremia, multifactorial 2. Status post acute kidney injury on chronic kidney disease due to systemic inflammatory response syndrome. 3. Systemic inflammatory response syndrome. 4. History of recurrent polymicrobial urinary tract infections. 5. History of dementia. 6. History of previous cerebrovascular accident. 7. History of chronic obstructive pulmonary disease, recently had acute respiratory failure secondary to chronic obstructive pulmonary disease exacerbation. 8. History of urinary retention with a chronic George catheter in place. 9. Chronic debility with cachexia. 10. Multiple decubitus ulcers with a history of debridement. 11. History of degenerative joint disease of spine. 12. History of hypertension and hypertensive heart disease with mild to moderate concentric left ventricular hypertrophy and echocardiogram with diastolic dysfunction stage I. PLAN: Na dropped to 128, pt likey has Component of SAIDH causing hypoantreia, due to acute on chronic pain continued Na Chloride tablet 1 gram PO TID - Na dropped to 128- will give Tolvaptan 15 mg PO x 1 dose replace K as needed will follow up Consultation Date/Type/Reason Admit Date/Time Sep 26, 2016 at 20:07 Type of Consultation: NEPHROLOGY Referring Provider: DRE LOBATO MD 24 HR Interval Summary Free Text/Dictation Na dropped to 128, BP stable Exam/Review of Systems Vital Signs Vitals Vital Signs Date Time Temp Pulse Resp B/P Pulse Ox O2 Delivery O2 Flow Rate FiO2 10/24/16 08:15 Nasal Cannula 2.0 10/24/16 07:57 97.9 70 18 116/79 97 Intake and Output 10/23/16 10/23/16 10/24/16 15:00 23:00 07:00 Intake Total 50 ml 1502.8 ml 850 ml Output Total 1400 ml 1700 ml Balance 50 ml 102.8 ml -850 ml Exam more alert today Constitutional: alert, frail, oriented Head: normocephalic Respiratory: other (Coarse breath sounds bilaterally, no wheezing) Cardiovascular: other (S1-S2 heard), regular rate and rhythm Gastrointestinal: bowel sounds, non-tender, soft Extremities: other (No edema) Results Result Diagram: 10/24/16 0503 10/24/16 0503 Results 24 hrs Laboratory Tests Test 10/24/16 05:03 10/24/16 10:26 White Blood Count 18.3 H Red Blood Count 3.36 L Hemoglobin 8.6 L Hematocrit 27.8 L Mean Corpuscular Volume 82.7 Mean Corpuscular Hemoglobin 25.6 L Mean Corpuscular Hemoglobin Concent 30.9 L Red Cell Distribution Width 18.0 H Platelet Count 328 Mean Platelet Volume 9.0 Neutrophils % 75.5 Lymphocytes % 10.4 L Monocytes % 11.0 Eosinophils % 1.9 Basophils % 0.5 Nucleated Red Blood Cells % 0.0 Neutrophils # 13.8 H Lymphocytes # 1.9 Monocytes # 2.0 H Eosinophils # 0.4 Basophils # 0.1 Nucleated Red Blood Cells # 0.0 Sodium Level 128 L Potassium Level 3.6 Chloride Level 93 L Carbon Dioxide Level 29 Anion Gap 10 # Blood Urea Nitrogen 19 Creatinine 0.43 L Glucose Level 141 Calcium Level 8.3 L Lab Scanned Report BLOOD TRANSFUSION Medications Medications Current Medications Ondansetron HCl (Zofran Inj) 4 mg Q6 PRN IV NAUSEA AND/OR VOMITING; Start 09/26 at 22:30 Acetaminophen (Tylenol Tab) 650 mg Q6H PRN PO PAIN AND OR ELEVATED TEMP Last administered on 10/23/16 18:08; Admin Dose 650 MG; Start 09/26/16 at 23:00 Alprazolam (Xanax) 0.5 mg Q12 PRN PO ANXIETY Last administered on 10/04/16 20: 29; Admin Dose 0.5 MG; Start 09/26/16 at 23:00 Ascorbic Acid (Vitamin C) 500 mg BID PO Last administered on 10/24/16 09:23; Admin Dose 500 MG; Start 09/27/16 at 09:00 Atorvastatin Calcium (Lipitor) 20 mg QHS PO Last administered on 10/23/16 21:19 ; Admin Dose 20 MG; Start 09/27/16 at 21:00 Diazepam (Valium) 10 mg DAILY PO Last administered on 10/24/16 09:24; Admin Dose 10 MG; Start 09/27/16 at 09:00 Docusate Sodium (Colace) 100 mg Q12H PRN PO CONSTIPATION; Start 09/26/16 at 23: 00 Duloxetine HCl (Cymbalta) 20 mg DAILY PO Last administered on 10/24/16 09:24; Admin Dose 20 MG; Start 09/27/16 at 09:00 Zolpidem Tartrate (Ambien) 5 mg QHS PRN PO INSOMNIA Last administered on 02:35; Admin Dose 5 MG; Start 09/26/16 at 23:00 Collagenase (Santyl) 1 applic DAILY TOP Last administered on 10/23/16 15:00; Admin Dose 1 APPLIC; Start 09/27/16 at 09:00 Collagenase (Santyl) 1 applic PRN PRN TOP SOILED OR DISLODGED DRESSING; Start 09/27/16 at 05:00 Lansoprazole (Prevacid) 30 mg DAILY@06 GTB Last administered on 10/24/16 06:07 ; Admin Dose 30 MG; Start 09/28/16 at 06:00 Mupirocin (Bactroban) 1 applic BID TOP Last administered on 10/24/16 09:29; Admin Dose 1 APPLIC; Start 09/28/16 at 21:00 Cromolyn Sodium (Nasalcrom) 1 spray QID NASAL Last administered on 10/23/16 21: 23; Admin Dose 1 SPRAY; Start 09/29/16 at 11:02 Linezolid (Zyvox) 600 mg BID PO Last administered on 10/24/16 09:24; Admin Dose 600 MG; Start 09/29/16 at 21:00 Amikacin Sulfate (Amikacin Iv Per Pharmacy) AMIKACIN PER PHARMACY NOTE XX ; Start 09/29/16 at 15:30 Phenol (Cepastat Lozenge) 1 lozenge Q2H PRN MT SORE THROAT Last administered on 10/02/16 12:48; Admin Dose 1 LOZENGE; Start 10/01/16 at 19:00 IV Flush (NS 10 ml) 10 ml PRN PRN IV IV PROTOCOL; Start 10/02/16 at 19:00 Lactobacillus Acidophilus (Florajen3 Capsule) 1 each TID PO Last administered on 10/24/16 09:18; Admin Dose 1 EACH; Start 10/03/16 at 21:00 Hydromorphone HCl (Dilaudid) 0.5 mg Q4H PRN IV PAIN Last administered on 12:14; Admin Dose 0.5 MG; Start 10/06/16 at 18:30 Promethazine HCl/ Codeine (Phenergan/ Codeine) 10 ml BID PRN PO COUGH; Start at 20:30 Morphine Sulfate 60 mg 60 mg Q6 PO Last administered on 10/21/16 12:28; Admin Dose 60 MG; Start 10/09/16 at 12:00; Status Future Hold Metronidazole 250 mg/N/A 50 ml @ 50 mls/hr Q8 IVPB Last administered on 06:07; Admin Dose 50 MLS/HR; Start 10/10/16 at 22:00 Amikacin Sulfate/ Dextrose (Amikacin/D5W) 102.8 ml @ 102.8 mls/ hr Q36H IVPB Last administered on 10/23/16 21:17; Admin Dose 102.8 MLS/HR; Start 10/14/16 at 21:00 Sodium Chloride (Nacl) 1 gm TID PO Last administered on 10/24/16 09:23; Admin Dose 1 GM; Start 10/16/16 at 17:00 Fluconazole (Diflucan) 100 mg DAILY PO Last administered on 10/24/16 09:23; Admin Dose 100 MG; Start 10/17/16 at 13:00 Lidocaine/ Epinephrine (Xylocaine 2%/ Epi Mpf(Sdv)) 20 ml ONCE INJ ; Start at 11:30; Stop 10/24/16 at 23:00 DIONNE SAUCEDA MD October 24, 2016 12:45
[2016-10-24] MEDS ORDERED: TOLVAPTAN 15 MG TABLET PO ONE (13:00)
--- NOTE | 2016-10-24 13:55 | CONS ---
Date/Time of Note Date/Time of Note DATE: 10/24/16 TIME: 13:54 Assessment/Plan Assessment/Plan Chief Complaint/Hosp Course SUBJECTIVE: No events overnight. No fevers. NAD ANTIMICROBIALS: 1. Amikacin. 2. Fluconazole. 3. Flagyl. 4. Zyvox. 5. Topical Bactroban to nares. INDWELLINGS: PEG, George, PICC line. PHYSICAL EXAMINATION: GENERAL: A cachectic elderly woman who is awake, in no distress. HEENT: Head atraumatic, normocephalic. Sclerae anicteric. Buccal mucosa dry. NECK: Supple. CHEST: Rise symmetrical. Breath sounds clear, diminished to bases. HEART: S1, S2. ABDOMEN: Soft, bowel sounds present. EXTREMITIES: Without cyanosis. ASSESSMENT: 1. Systemic inflammatory response syndrome with persistent leukocytosis secondary to infected wounds, and possibly secondary to malignancy. 2. Lung cancer. 3. Cachexia. 4. Sacral decubitus with exposed bone and culture growing multidrug resistant organisms, status post debridement with wound VAC application. 5. History of Clostridium difficile, pneumonia and urinary tract infection. 6. Oral thrush. PLAN: Clinically unchanged, wbc increasing, will repeat cx's and cxr. Continue present care, continue antibiotics, f/u repeat wound cx. DW staff Problems: Consultation Date/Type/Reason Admit Date/Time Sep 26, 2016 at 20:07 Type of Consultation: ID Referring Provider: DRE LOBATO MD Exam/Review of Systems Vital Signs Vitals Vital Signs Date Time Temp Pulse Resp B/P Pulse Ox O2 Delivery O2 Flow Rate FiO2 10/24/16 08:15 Nasal Cannula 2.0 10/24/16 07:57 97.9 70 18 116/79 97 Intake and Output 10/23/16 10/23/16 10/24/16 15:00 23:00 07:00 Intake Total 50 ml 1502.8 ml 850 ml Output Total 1400 ml 1700 ml Balance 50 ml 102.8 ml -850 ml Results Result Diagram: 10/24/16 0503 10/24/16 0503 Results 24 hrs Laboratory Tests Test 10/24/16 05:03 10/24/16 10:26 White Blood Count 18.3 H Red Blood Count 3.36 L Hemoglobin 8.6 L Hematocrit 27.8 L Mean Corpuscular Volume 82.7 Mean Corpuscular Hemoglobin 25.6 L Mean Corpuscular Hemoglobin Concent 30.9 L Red Cell Distribution Width 18.0 H Platelet Count 328 Mean Platelet Volume 9.0 Neutrophils % 75.5 Lymphocytes % 10.4 L Monocytes % 11.0 Eosinophils % 1.9 Basophils % 0.5 Nucleated Red Blood Cells % 0.0 Neutrophils # 13.8 H Lymphocytes # 1.9 Monocytes # 2.0 H Eosinophils # 0.4 Basophils # 0.1 Nucleated Red Blood Cells # 0.0 Sodium Level 128 L Potassium Level 3.6 Chloride Level 93 L Carbon Dioxide Level 29 Anion Gap 10 # Blood Urea Nitrogen 19 Creatinine 0.43 L Glucose Level 141 Calcium Level 8.3 L Lab Scanned Report BLOOD TRANSFUSION Medications Medications Current Medications Ondansetron HCl (Zofran Inj) 4 mg Q6 PRN IV NAUSEA AND/OR VOMITING; Start 09/26 at 22:30 Acetaminophen (Tylenol Tab) 650 mg Q6H PRN PO PAIN AND OR ELEVATED TEMP Last administered on 10/23/16 18:08; Admin Dose 650 MG; Start 09/26/16 at 23:00 Alprazolam (Xanax) 0.5 mg Q12 PRN PO ANXIETY Last administered on 10/04/16 20: 29; Admin Dose 0.5 MG; Start 09/26/16 at 23:00 Ascorbic Acid (Vitamin C) 500 mg BID PO Last administered on 10/24/16 09:23; Admin Dose 500 MG; Start 09/27/16 at 09:00 Atorvastatin Calcium (Lipitor) 20 mg QHS PO Last administered on 10/23/16 21:19 ; Admin Dose 20 MG; Start 09/27/16 at 21:00 Diazepam (Valium) 10 mg DAILY PO Last administered on 10/24/16 09:24; Admin Dose 10 MG; Start 09/27/16 at 09:00 Docusate Sodium (Colace) 100 mg Q12H PRN PO CONSTIPATION; Start 09/26/16 at 23: 00 Duloxetine HCl (Cymbalta) 20 mg DAILY PO Last administered on 10/24/16 09:24; Admin Dose 20 MG; Start 09/27/16 at 09:00 Zolpidem Tartrate (Ambien) 5 mg QHS PRN PO INSOMNIA Last administered on 02:35; Admin Dose 5 MG; Start 09/26/16 at 23:00 Collagenase (Santyl) 1 applic DAILY TOP Last administered on 10/23/16 15:00; Admin Dose 1 APPLIC; Start 09/27/16 at 09:00 Collagenase (Santyl) 1 applic PRN PRN TOP SOILED OR DISLODGED DRESSING; Start 09/27/16 at 05:00 Lansoprazole (Prevacid) 30 mg DAILY@06 GTB Last administered on 10/24/16 06:07 ; Admin Dose 30 MG; Start 09/28/16 at 06:00 Mupirocin (Bactroban) 1 applic BID TOP Last administered on 10/24/16 09:29; Admin Dose 1 APPLIC; Start 09/28/16 at 21:00 Cromolyn Sodium (Nasalcrom) 1 spray QID NASAL Last administered on 10/23/16 21: 23; Admin Dose 1 SPRAY; Start 09/29/16 at 11:02 Linezolid (Zyvox) 600 mg BID PO Last administered on 10/24/16 09:24; Admin Dose 600 MG; Start 09/29/16 at 21:00 Amikacin Sulfate (Amikacin Iv Per Pharmacy) AMIKACIN PER PHARMACY NOTE XX ; Start 09/29/16 at 15:30 Phenol (Cepastat Lozenge) 1 lozenge Q2H PRN MT SORE THROAT Last administered on 10/02/16 12:48; Admin Dose 1 LOZENGE; Start 10/01/16 at 19:00 IV Flush (NS 10 ml) 10 ml PRN PRN IV IV PROTOCOL; Start 10/02/16 at 19:00 Lactobacillus Acidophilus (Florajen3 Capsule) 1 each TID PO Last administered on 10/24/16 09:18; Admin Dose 1 EACH; Start 10/03/16 at 21:00 Hydromorphone HCl (Dilaudid) 0.5 mg Q4H PRN IV PAIN Last administered on 12:14; Admin Dose 0.5 MG; Start 10/06/16 at 18:30 Promethazine HCl/ Codeine (Phenergan/ Codeine) 10 ml BID PRN PO COUGH; Start at 20:30 Morphine Sulfate 60 mg 60 mg Q6 PO Last administered on 10/21/16 12:28; Admin Dose 60 MG; Start 10/09/16 at 12:00; Status Future Hold Metronidazole 250 mg/N/A 50 ml @ 50 mls/hr Q8 IVPB Last administered on 06:07; Admin Dose 50 MLS/HR; Start 10/10/16 at 22:00 Amikacin Sulfate/ Dextrose (Amikacin/D5W) 102.8 ml @ 102.8 mls/ hr Q36H IVPB Last administered on 10/23/16 21:17; Admin Dose 102.8 MLS/HR; Start 10/14/16 at 21:00 Sodium Chloride (Nacl) 1 gm TID PO Last administered on 10/24/16 09:23; Admin Dose 1 GM; Start 10/16/16 at 17:00 Fluconazole (Diflucan) 100 mg DAILY PO Last administered on 10/24/16 09:23; Admin Dose 100 MG; Start 10/17/16 at 13:00 Lidocaine/ Epinephrine (Xylocaine 2%/ Epi Mpf(Sdv)) 20 ml ONCE INJ ; Start at 11:30; Stop 10/24/16 at 23:00 RUBIN MAYEN NP October 24, 2016 13:55
[2016-10-24 14:28] LABS: ALANINE AMINOTRANSFERASE 24 IU/L (13-69); ASPARTATE AMINO TRANSFERASE 25 IU/L (15-46); SODIUM 129 mmol/L (135-144)
--- NOTE | 2016-10-24 16:40 | RADRPT ---
PROCEDURE: XR Chest. CLINICAL INDICATION: Shortness of breath. TECHNIQUE: Single frontal view. COMPARISON: 10/17/2016. FINDINGS: There is a right arm PICC line with the tip in the lower superior vena cava. There is mass-like con solidation in the left mid to lower lung zones, unchanged. Bilateral interstitial pulmonary disease is unchanged. The heart is mildly enlarged. There is calcification in the aorta consistent with atherosclerosis. There is no pleural effusion. There is no pneumothorax. IMPRESSION: 1. No change from 10/17/2016. RPTAT: QQ .Eduardo Silva MD, MD Date Time Electronically viewed and signed by .Eduardo Silva MD, MD on 10/24/2016 16:40 .R/
--- NOTE | 2016-10-24 17:06 | CONS ---
Date/Time of Note Date/Time of Note DATE: 10/24/16 TIME: 17:05 Assessment/Plan Assessment/Plan Additional Assessment/Plan SIRS Intermittent hypotension Diastolic congestive heart failure, compensated Pulmonary hypertension Preserved ejection fraction Tricuspid valve regurgitation Lung cancer -Blood pressure trend remains stable, would continue to hold any antihypertensives at the current time. Maintain potassium above 4.0 and magnesium above 2.0. Consultation Date/Type/Reason Admit Date/Time Sep 26, 2016 at 20:07 Type of Consultation: cv Referring Provider: DRE LOBATO MD 24 HR Interval Summary Free Text/Dictation Denies shortness of breath, dizziness or chest pain Exam/Review of Systems Vital Signs Vitals Vital Signs Date Time Temp Pulse Resp B/P Pulse Ox O2 Delivery O2 Flow Rate FiO2 10/24/16 08:15 Nasal Cannula 2.0 10/24/16 07:57 97.9 70 18 116/79 97 Intake and Output 10/23/16 10/23/16 10/24/16 15:00 23:00 07:00 Intake Total 50 ml 1502.8 ml 850 ml Output Total 1400 ml 1700 ml Balance 50 ml 102.8 ml -850 ml Exam No apparent distress Constitutional: alert, frail, oriented Head: normocephalic Respiratory: other (Coarse breath sounds bilaterally, no wheezing) Cardiovascular: other (S1-S2 heard), regular rate and rhythm Gastrointestinal: bowel sounds, non-tender, soft Extremities: other (No edema) Results Result Diagram: 10/24/16 0503 10/24/16 1330 Results 24 hrs Laboratory Tests Test 10/24/16 05:03 10/24/16 10:26 10/24/16 13:30 White Blood Count 18.3 H Red Blood Count 3.36 L Hemoglobin 8.6 L Hematocrit 27.8 L Mean Corpuscular Volume 82.7 Mean Corpuscular Hemoglobin 25.6 L Mean Corpuscular Hemoglobin Concent 30.9 L Red Cell Distribution Width 18.0 H Platelet Count 328 Mean Platelet Volume 9.0 Neutrophils % 75.5 Lymphocytes % 10.4 L Monocytes % 11.0 Eosinophils % 1.9 Basophils % 0.5 Nucleated Red Blood Cells % 0.0 Neutrophils # 13.8 H Lymphocytes # 1.9 Monocytes # 2.0 H Eosinophils # 0.4 Basophils # 0.1 Nucleated Red Blood Cells # 0.0 Sodium Level 128 L 129 L Potassium Level 3.6 Chloride Level 93 L Carbon Dioxide Level 29 Anion Gap 10 # Blood Urea Nitrogen 19 Creatinine 0.43 L Glucose Level 141 Calcium Level 8.3 L Lab Scanned Report BLOOD TRANSFUSION Aspartate Amino Transf (AST/SGOT) 25 Alanine Aminotransferase (ALT/SGPT) 24 Medications Medications Current Medications Ondansetron HCl (Zofran Inj) 4 mg Q6 PRN IV NAUSEA AND/OR VOMITING; Start 09/26 at 22:30 Acetaminophen (Tylenol Tab) 650 mg Q6H PRN PO PAIN AND OR ELEVATED TEMP Last administered on 10/23/16 18:08; Admin Dose 650 MG; Start 09/26/16 at 23:00 Alprazolam (Xanax) 0.5 mg Q12 PRN PO ANXIETY Last administered on 10/04/16 20: 29; Admin Dose 0.5 MG; Start 09/26/16 at 23:00 Ascorbic Acid (Vitamin C) 500 mg BID PO Last administered on 10/24/16 09:23; Admin Dose 500 MG; Start 09/27/16 at 09:00 Atorvastatin Calcium (Lipitor) 20 mg QHS PO Last administered on 10/23/16 21:19 ; Admin Dose 20 MG; Start 09/27/16 at 21:00 Diazepam (Valium) 10 mg DAILY PO Last administered on 10/24/16 09:24; Admin Dose 10 MG; Start 09/27/16 at 09:00 Docusate Sodium (Colace) 100 mg Q12H PRN PO CONSTIPATION; Start 09/26/16 at 23: 00 Duloxetine HCl (Cymbalta) 20 mg DAILY PO Last administered on 10/24/16 09:24; Admin Dose 20 MG; Start 09/27/16 at 09:00 Zolpidem Tartrate (Ambien) 5 mg QHS PRN PO INSOMNIA Last administered on 02:35; Admin Dose 5 MG; Start 09/26/16 at 23:00 Collagenase (Santyl) 1 applic DAILY TOP Last administered on 10/23/16 15:00; Admin Dose 1 APPLIC; Start 09/27/16 at 09:00 Collagenase (Santyl) 1 applic PRN PRN TOP SOILED OR DISLODGED DRESSING; Start 09/27/16 at 05:00 Lansoprazole (Prevacid) 30 mg DAILY@06 GTB Last administered on 10/24/16 06:07 ; Admin Dose 30 MG; Start 09/28/16 at 06:00 Mupirocin (Bactroban) 1 applic BID TOP Last administered on 10/24/16 09:29; Admin Dose 1 APPLIC; Start 09/28/16 at 21:00 Cromolyn Sodium (Nasalcrom) 1 spray QID NASAL Last administered on 10/24/16 13: 57; Admin Dose 1 SPRAY; Start 09/29/16 at 11:02 Linezolid (Zyvox) 600 mg BID PO Last administered on 10/24/16 09:24; Admin Dose 600 MG; Start 09/29/16 at 21:00 Amikacin Sulfate (Amikacin Iv Per Pharmacy) AMIKACIN PER PHARMACY NOTE XX ; Start 09/29/16 at 15:30 Phenol (Cepastat Lozenge) 1 lozenge Q2H PRN MT SORE THROAT Last administered on 10/02/16 12:48; Admin Dose 1 LOZENGE; Start 10/01/16 at 19:00 IV Flush (NS 10 ml) 10 ml PRN PRN IV IV PROTOCOL; Start 10/02/16 at 19:00 Lactobacillus Acidophilus (Florajen3 Capsule) 1 each TID PO Last administered on 10/24/16 13:58; Admin Dose 1 EACH; Start 10/03/16 at 21:00 Hydromorphone HCl (Dilaudid) 0.5 mg Q4H PRN IV PAIN Last administered on 16:26; Admin Dose 0.5 MG; Start 10/06/16 at 18:30 Promethazine HCl/ Codeine (Phenergan/ Codeine) 10 ml BID PRN PO COUGH; Start at 20:30 Morphine Sulfate 60 mg 60 mg Q6 PO Last administered on 10/21/16 12:28; Admin Dose 60 MG; Start 10/09/16 at 12:00; Status Future Hold Metronidazole 250 mg/N/A 50 ml @ 50 mls/hr Q8 IVPB Last administered on 13:58; Admin Dose 50 MLS/HR; Start 10/10/16 at 22:00 Amikacin Sulfate/ Dextrose (Amikacin/D5W) 102.8 ml @ 102.8 mls/ hr Q36H IVPB Last administered on 10/23/16 21:17; Admin Dose 102.8 MLS/HR; Start 10/14/16 at 21:00 Sodium Chloride (Nacl) 1 gm TID PO Last administered on 10/24/16 13:58; Admin Dose 1 GM; Start 10/16/16 at 17:00 Fluconazole (Diflucan) 100 mg DAILY PO Last administered on 10/24/16 09:23; Admin Dose 100 MG; Start 10/17/16 at 13:00 Lidocaine/ Epinephrine (Xylocaine 2%/ Epi Mpf(Sdv)) 20 ml ONCE INJ ; Start at 11:30; Stop 10/24/16 at 23:00 Miscellaneous Information (*Rx Drug Level Order Reminder*) AMIKACIN TROUGH @ 0, 800 ON... ONCE ONCE XX ; Start 10/25/16 at 08:00; Stop 10/25/16 at 08:01 Artemio Tipton DO October 24, 2016 17:06
--- NOTE | 2016-10-24 18:55 | PN ---
Date/Time of Note Date/Time of Note DATE: 10/24/16 TIME: 18:54 Assessment/Plan Lines/Catheters IV Catheter Type (from Nrs): PICC Line George in Place (from Nrs): Yes Assessment/Plan Chief Complaint/Hosp Course 1. Multiple decubitus ulcers with debris -Offload -Optimize nutrition -Vitamin C -Local care -Debridement sacrococcyx prn 2. UTI s/p abx 3. 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 Acute on chronic diastolic heart failure -Judicious fluid management -Cardiac optimization 5. Hypertension -Diet and medication control 6. Chronic urinary retention with George 7. Depression. -Medical management 8. Hypothyroidism by history. -Synthroid 9. Anemia of chronic disease in addition to iron deficiency anemia. -Continue iron supplements. -Transfusion when necessary 10. Chronic pain syndrome. Continue pain management. Thank you Problems: Subjective 24 Hr Interval Summary Leukocytosis worsening. No fevers, chills, nausea, vomiting, or abdominal pain. No abnormal vaginal discharge. No bloating. No cough, sz, bloating. No robles/dizzy/visual or neuro changes. Exam/Review of Systems Vital Signs Vitals Vital Signs Date Time Temp Pulse Resp B/P Pulse Ox O2 Delivery O2 Flow Rate FiO2 10/24/16 08:15 Nasal Cannula 2.0 10/24/16 07:57 97.9 70 18 116/79 97 Intake and Output 10/23/16 10/23/16 10/24/16 15:00 23:00 07:00 Intake Total 50 ml 1502.8 ml 850 ml Output Total 1400 ml 1700 ml Balance 50 ml 102.8 ml -850 ml Exam Free Text/Dictation GENERAL: Elderly, cachectic, no acute distress. HEENT: Head is atraumatic, normocephalic. Pupils equal, round, reactive to light and accommodation. Oral mucosa is pink and moist. NECK: Supple, no cervical lymphadenopathy LUNGS: Normal respiratory effort CARDIAC: S1 and S2. Irregular ABDOMEN: Flat, soft and nondistended. Nontender. No rebound or guarding. SKIN: Multiple decubitus wounds/ulcers buttock sacrum and right lower extremity EXTREMITIES: No edema. Pulses equal bilaterally, 2+. NEUROLOGICAL: Responsive VASCULAR: Refill is less than 2 seconds Results Result Diagram: 10/24/16 0503 10/24/16 1330 ZAK POSEY MD October 24, 2016 18:55
--- NOTE | 2016-10-24 19:44 | PN ---
Date/Time of Note Date/Time of Note DATE: 10/24/16 TIME: 19:42 Assessment/Plan VTE Prophylaxis VTE Prophylaxis Intervention: SCD's Lines/Catheters IV Catheter Type (from [facility]): PICC Line Central line still needed: Yes Urinary Cath still in place: Yes Reason Cath still needed: urinary retention Assessment/Plan Chief Complaint/Hosp Course ASSESSMENT AND PLAN: - Recurrent sepsis, resolving. Dr. Coleman is following in infection disease consultation. Continue antibiotics per ID. - Persistent leukocytosis secondary to multiple wounds and malignancy. - Hyponatremia, Dr. Zapata is following in nephrology consultation. - Polymicrobial urinary tract infection, s/p treatment. - Left lung squamous cell carcinoma. Patient is not a candidate for chemotherapy. - Chronic obstructive pulmonary disease. Continue breathing treatment. - Multiple decubitus ulcers with history of debridement. Continue current wound care. Wound culture is growing polymicrobial organisms. Continue antibiotics per ID. - Methicillin-resistant Staphylococcus aureus nares colonization. - Cachexia. Optimize nutrition. - Dysphagia with G-tube placement. Continue G-tube feeding. Aspiration precaution. - Chronic urinary retention. Continue George catheter. - Hypothyroidism. TSH is within normal limits. Continue Synthroid. - Anemia of chronic disease. Continue to monitor hemoglobin and hematocrit. Blood transfusion as needed. Further recommendations based on clinical course. Plan of care discussed with Dr. Dozier. Problems: Subjective 24 Hr Interval Summary Free Text/Dictation Sodium is 128 today, status post tolvaptan today, tolerates G-tube feeding well , possible wound debridement tomorrow. Exam/Review of Systems Vital Signs Vitals Vital Signs Date Time Temp Pulse Resp B/P Pulse Ox O2 Delivery O2 Flow Rate FiO2 10/24/16 08:15 Nasal Cannula 2.0 10/24/16 07:57 97.9 70 18 116/79 97 Intake and Output 10/23/16 10/23/16 10/24/16 15:00 23:00 07:00 Intake Total 50 ml 1502.8 ml 850 ml Output Total 1400 ml 1700 ml Balance 50 ml 102.8 ml -850 ml Exam Constitutional: alert, oriented Psych: no complaints Head: atraumatic, normocephalic Eyes: nl conjunctiva ENMT: nl external ears & nose Neck: non-tender, supple Respiratory: clear to auscultation, normal air movement Cardiovascular: nl pulses, regular rate and rhythm Gastrointestinal: non-tender, other (G-tube), soft Musculoskeletal: nl extremities to inspection Extremities: normal pulses Neurological: 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 Results Result Diagram: 10/24/16 0503 10/24/16 1330 Results 24 hrs Laboratory Tests Test 10/24/16 05:03 10/24/16 10:26 10/24/16 13:30 White Blood Count 18.3 H Red Blood Count 3.36 L Hemoglobin 8.6 L Hematocrit 27.8 L Mean Corpuscular Volume 82.7 Mean Corpuscular Hemoglobin 25.6 L Mean Corpuscular Hemoglobin Concent 30.9 L Red Cell Distribution Width 18.0 H Platelet Count 328 Mean Platelet Volume 9.0 Neutrophils % 75.5 Lymphocytes % 10.4 L Monocytes % 11.0 Eosinophils % 1.9 Basophils % 0.5 Nucleated Red Blood Cells % 0.0 Neutrophils # 13.8 H Lymphocytes # 1.9 Monocytes # 2.0 H Eosinophils # 0.4 Basophils # 0.1 Nucleated Red Blood Cells # 0.0 Sodium Level 128 L 129 L Potassium Level 3.6 Chloride Level 93 L Carbon Dioxide Level 29 Anion Gap 10 # Blood Urea Nitrogen 19 Creatinine 0.43 L Glucose Level 141 Calcium Level 8.3 L Lab Scanned Report BLOOD TRANSFUSION Aspartate Amino Transf (AST/SGOT) 25 Alanine Aminotransferase (ALT/SGPT) 24 Medications Medications Current Medications Ondansetron HCl (Zofran Inj) 4 mg Q6 PRN IV NAUSEA AND/OR VOMITING; Start 09/26 at 22:30 Acetaminophen (Tylenol Tab) 650 mg Q6H PRN PO PAIN AND OR ELEVATED TEMP Last administered on 10/23/16 18:08; Admin Dose 650 MG; Start 09/26/16 at 23:00 Alprazolam (Xanax) 0.5 mg Q12 PRN PO ANXIETY Last administered on 10/04/16 20: 29; Admin Dose 0.5 MG; Start 09/26/16 at 23:00 Ascorbic Acid (Vitamin C) 500 mg BID PO Last administered on 10/24/16 09:23; Admin Dose 500 MG; Start 09/27/16 at 09:00 Atorvastatin Calcium (Lipitor) 20 mg QHS PO Last administered on 10/23/16 21:19 ; Admin Dose 20 MG; Start 09/27/16 at 21:00 Diazepam (Valium) 10 mg DAILY PO Last administered on 10/24/16 09:24; Admin Dose 10 MG; Start 09/27/16 at 09:00 Docusate Sodium (Colace) 100 mg Q12H PRN PO CONSTIPATION; Start 09/26/16 at 23: 00 Duloxetine HCl (Cymbalta) 20 mg DAILY PO Last administered on 10/24/16 09:24; Admin Dose 20 MG; Start 09/27/16 at 09:00 Zolpidem Tartrate (Ambien) 5 mg QHS PRN PO INSOMNIA Last administered on 02:35; Admin Dose 5 MG; Start 09/26/16 at 23:00 Collagenase (Santyl) 1 applic DAILY TOP Last administered on 10/23/16 15:00; Admin Dose 1 APPLIC; Start 09/27/16 at 09:00 Collagenase (Santyl) 1 applic PRN PRN TOP SOILED OR DISLODGED DRESSING; Start 09/27/16 at 05:00 Lansoprazole (Prevacid) 30 mg DAILY@06 GTB Last administered on 10/24/16 06:07 ; Admin Dose 30 MG; Start 09/28/16 at 06:00 Mupirocin (Bactroban) 1 applic BID TOP Last administered on 10/24/16 09:29; Admin Dose 1 APPLIC; Start 09/28/16 at 21:00 Cromolyn Sodium (Nasalcrom) 1 spray QID NASAL Last administered on 10/24/16 13: 57; Admin Dose 1 SPRAY; Start 09/29/16 at 11:02 Linezolid (Zyvox) 600 mg BID PO Last administered on 10/24/16 09:24; Admin Dose 600 MG; Start 09/29/16 at 21:00 Amikacin Sulfate (Amikacin Iv Per Pharmacy) AMIKACIN PER PHARMACY NOTE XX ; Start 09/29/16 at 15:30 Phenol (Cepastat Lozenge) 1 lozenge Q2H PRN MT SORE THROAT Last administered on 10/02/16 12:48; Admin Dose 1 LOZENGE; Start 10/01/16 at 19:00 IV Flush (NS 10 ml) 10 ml PRN PRN IV IV PROTOCOL; Start 10/02/16 at 19:00 Lactobacillus Acidophilus (Florajen3 Capsule) 1 each TID PO Last administered on 10/24/16 13:58; Admin Dose 1 EACH; Start 10/03/16 at 21:00 Hydromorphone HCl (Dilaudid) 0.5 mg Q4H PRN IV PAIN Last administered on 16:26; Admin Dose 0.5 MG; Start 10/06/16 at 18:30 Promethazine HCl/ Codeine (Phenergan/ Codeine) 10 ml BID PRN PO COUGH; Start at 20:30 Morphine Sulfate 60 mg 60 mg Q6 PO Last administered on 10/21/16 12:28; Admin Dose 60 MG; Start 10/09/16 at 12:00; Status Future Hold Metronidazole 250 mg/N/A 50 ml @ 50 mls/hr Q8 IVPB Last administered on 13:58; Admin Dose 50 MLS/HR; Start 10/10/16 at 22:00 Amikacin Sulfate/ Dextrose (Amikacin/D5W) 102.8 ml @ 102.8 mls/ hr Q36H IVPB Last administered on 10/23/16 21:17; Admin Dose 102.8 MLS/HR; Start 10/14/16 at 21:00 Sodium Chloride (Nacl) 1 gm TID PO Last administered on 10/24/16 13:58; Admin Dose 1 GM; Start 10/16/16 at 17:00 Fluconazole (Diflucan) 100 mg DAILY PO Last administered on 10/24/16 09:23; Admin Dose 100 MG; Start 10/17/16 at 13:00 Lidocaine/ Epinephrine (Xylocaine 2%/ Epi Mpf(Sdv)) 20 ml ONCE INJ ; Start at 11:30; Stop 10/24/16 at 23:00 Miscellaneous Information (*Rx Drug Level Order Reminder*) AMIKACIN TROUGH @ 0, 800 ON... ONCE ONCE XX ; Start 10/25/16 at 08:00; Stop 10/25/16 at 08:01 REBECCA ISLAS October 24, 2016 19:44
[2016-10-24 20:42] VITALS: BP 142/82; RESP 18
[2016-10-24] MEDS: ALPRAZOLAM 0.5 MG TAB PO PRN (21:32)
[2016-10-24] MEDS: ATORVASTATIN 20 MG TAB PO SCH (21:33)
[2016-10-25] MEDS: LEVOTHYROXINE 125 MCG TAB PO SCH (04:15)
[2016-10-25] MEDS: HYDROmorphONE 1 MG/ML SYG IV PRN ×3 (04:15→18:46)
[2016-10-25] MEDS: LANSOPRAZOLE 30 MG CAP GTB SCH (04:15)
[2016-10-25] MEDS: metroNIDAZOLE 500 MG/NS (PMX) 250 MG in EVAC CONTAINER 1 BOTTLE IVPB SCH ×3 (04:15→21:14)
[2016-10-25 08:00] VITALS: BP 136/90; RESP 20
[2016-10-25 08:22] LABS: ADD SCAN DIFF NO
[2016-10-25 08:31] LABS: ABNORMAL IP MESSAGE 1; BASOPHIL # 0.1 10^3/ul (0.0-0.1); BASOPHILS % 0.5 % (0.0-2.0); EOSINOPHILS # 0.4 10^3/ul (0.0-0.5); EOSINOPHILS % 2.2 % (0.0-7.0); HEMATOCRIT 30.5 % (37.0-47.0); HEMOGLOBIN 9.4 g/dl (12.0-16.0); LYMPHOCYTES % 11.6 % (15.0-51.0); MEAN CORPUSCULAR HEMOGLOBIN 25.5 pg (29.0-33.0); MEAN CORPUSCULAR HGB CONC 30.8 g/dl (32.0-37.0); MEAN CORPUSCULAR VOLUME 82.7 fl (82.0-101.0); MEAN PLATELET VOLUME 8.7 fl (7.4-10.4); MONOCYTE # 1.9 10^3/ul (0.3-0.9); MONOCYTES % 11.4 % (0.0-11.0); NEUTROPHIL # 12.4 10^3/ul (1.6-7.5); NEUTROPHILS % 73.6 % (39.0-77.0); PLATELET COUNT 361 10^3/UL (140-415); RED BLOOD COUNT 3.69 10^6/ul (4.20-5.40); WHITE BLOOD COUNT 16.9 10^3/ul (4.8-10.8)
[2016-10-25] MEDS: AMIKACIN 700 MG in DEXTROSE 5% 100 ML IVPB SCH (08:33)
[2016-10-25] MEDS: DULOXETINE 20 MG CAP DR PO SCH (08:34)
[2016-10-25] MEDS: SODIUM CHLORIDE 1 GM TAB PO SCH ×3 (08:34→21:11)
[2016-10-25] MEDS: FLUCONAZOLE 100 MG TAB PO SCH (08:34)
[2016-10-25] MEDS: DIAZEPAM 5 MG TAB PO SCH (08:34)
[2016-10-25] MEDS: ASCORBIC ACID 500 MG TAB PO SCH ×2 (08:34→21:11)
[2016-10-25] MEDS: L ACIDOPHIL/B LACTIS/B LONGUM CAPSULE PO SCH ×3 (08:34→21:11)
[2016-10-25] MEDS: ZYVOX 600 MG TAB PO SCH (08:34)
[2016-10-25] MEDS: MUPIROCIN 2% 22 GM OINT TOP SCH ×2 (08:46→21:12)
[2016-10-25] MEDS: CROMOLYN 4% 26ML NAS INH NASAL SCH ×4 (08:46→21:12)
[2016-10-25 08:50] LABS: CREATININE 0.49 mg/dl (0.44-1.00)
[2016-10-25 08:51] LABS: CALCIUM 8.5 mg/dl (8.4-10.2)
[2016-10-25 08:57] LABS: POTASSIUM 2.9 mmol/L (3.5-5.1)
[2016-10-25] MEDS: COLLAGENASE 30 GM TUBE TOP SCH (09:00)
[2016-10-25] MEDS ORDERED: POTASSIUM CHLORIDE (SR) 20 MEQ TAB PO STA (09:52)
--- NOTE | 2016-10-25 12:32 | CONS ---
Date/Time of Note Date/Time of Note DATE: 10/25/16 TIME: 12:30 Assessment/Plan Assessment/Plan Additional Assessment/Plan 1. Hyponatremia, multifactorial 2. Status post acute kidney injury on chronic kidney disease due to systemic inflammatory response syndrome. 3. Systemic inflammatory response syndrome. 4. History of recurrent polymicrobial urinary tract infections. 5. History of dementia. 6. History of previous cerebrovascular accident. 7. History of chronic obstructive pulmonary disease, recently had acute respiratory failure secondary to chronic obstructive pulmonary disease exacerbation. 8. History of urinary retention with a chronic George catheter in place. 9. Chronic debility with cachexia. 10. Multiple decubitus ulcers with a history of debridement. 11. History of degenerative joint disease of spine. 12. History of hypertension and hypertensive heart disease with mild to moderate concentric left ventricular hypertrophy and echocardiogram with diastolic dysfunction stage I. PLAN: Na dropped to 133 with one dose of tolvaptan 15 mg on 10/24/16, pt likey has Component of SAIDH causing hypoantreia, due to acute on chronic pain continued Na Chloride tablet 1 gram PO TID KCl 20mEQ IV x 1 dose now will follow up Consultation Date/Type/Reason Admit Date/Time Sep 26, 2016 at 20:07 Type of Consultation: NEPHROLOGY Referring Provider: DRE LOBATO MD 24 HR Interval Summary Free Text/Dictation s/p tolvaptan 15 mg pO x 1 dose yeterday, today Na 133,K 2.9 Exam/Review of Systems Vital Signs Vitals Vital Signs Date Time Temp Pulse Resp B/P Pulse Ox O2 Delivery O2 Flow Rate FiO2 10/25/16 10:51 Nasal Cannula 2.0 10/25/16 08:00 97.3 100 20 136/90 98 Intake and Output 10/24/16 10/24/16 10/25/16 15:00 23:00 07:00 Intake Total 100 ml 150 ml 1030 ml Output Total 1050 ml 1300 ml Balance 100 ml -900 ml -270 ml Exam Constitutional: alert, oriented Psych: no complaints Head: atraumatic, normocephalic Eyes: nl conjunctiva ENMT: nl external ears & nose Neck: non-tender, supple Respiratory: clear to auscultation, normal air movement Cardiovascular: nl pulses, regular rate and rhythm Gastrointestinal: non-tender, other (G-tube), soft Musculoskeletal: nl extremities to inspection Extremities: normal pulses Neurological: 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 Results Result Diagram: 10/25/1645 10/25/16 0745 Results 24 hrs Laboratory Tests Test 10/24/16 13:30 10/24/16 21:08 10/25/16 07:45 Sodium Level 129 L 128 L 133 L Aspartate Amino Transf (AST/SGOT) 25 Alanine Aminotransferase (ALT/SGPT) 24 White Blood Count 16.9 H Red Blood Count 3.69 L Hemoglobin 9.4 L Hematocrit 30.5 L Mean Corpuscular Volume 82.7 Mean Corpuscular Hemoglobin 25.5 L Mean Corpuscular Hemoglobin Concent 30.8 L Red Cell Distribution Width 18.0 H Platelet Count 361 Mean Platelet Volume 8.7 Neutrophils % 73.6 Lymphocytes % 11.6 L Monocytes % 11.4 H Eosinophils % 2.2 Basophils % 0.5 Nucleated Red Blood Cells % 0.0 Neutrophils # 12.4 H Lymphocytes # 2.0 Monocytes # 1.9 H Eosinophils # 0.4 Basophils # 0.1 Nucleated Red Blood Cells # 0.0 Potassium Level 2.9 *L Chloride Level 91 L Carbon Dioxide Level 29 Anion Gap 16 Blood Urea Nitrogen 18 Creatinine 0.49 Glucose Level 121 Calcium Level 8.5 Medications Medications Current Medications Ondansetron HCl (Zofran Inj) 4 mg Q6 PRN IV NAUSEA AND/OR VOMITING; Start 09/26 at 22:30 Acetaminophen (Tylenol Tab) 650 mg Q6H PRN PO PAIN AND OR ELEVATED TEMP Last administered on 10/23/16 18:08; Admin Dose 650 MG; Start 09/26/16 at 23:00 Alprazolam (Xanax) 0.5 mg Q12 PRN PO ANXIETY Last administered on 10/24/16 21: 32; Admin Dose 0.5 MG; Start 09/26/16 at 23:00 Ascorbic Acid (Vitamin C) 500 mg BID PO Last administered on 10/25/16 08:34; Admin Dose 500 MG; Start 09/27/16 at 09:00 Atorvastatin Calcium (Lipitor) 20 mg QHS PO Last administered on 10/24/16 21:33 ; Admin Dose 20 MG; Start 09/27/16 at 21:00 Diazepam (Valium) 10 mg DAILY PO Last administered on 10/25/16 08:34; Admin Dose 10 MG; Start 09/27/16 at 09:00 Docusate Sodium (Colace) 100 mg Q12H PRN PO CONSTIPATION; Start 09/26/16 at 23: 00 Duloxetine HCl (Cymbalta) 20 mg DAILY PO Last administered on 10/25/16 08:34; Admin Dose 20 MG; Start 09/27/16 at 09:00 Zolpidem Tartrate (Ambien) 5 mg QHS PRN PO INSOMNIA Last administered on 02:35; Admin Dose 5 MG; Start 09/26/16 at 23:00 Collagenase (Santyl) 1 applic DAILY TOP Last administered on 10/23/16 15:00; Admin Dose 1 APPLIC; Start 09/27/16 at 09:00 Collagenase (Santyl) 1 applic PRN PRN TOP SOILED OR DISLODGED DRESSING; Start 09/27/16 at 05:00 Lansoprazole (Prevacid) 30 mg DAILY@06 GTB Last administered on 10/25/16 04:15 ; Admin Dose 30 MG; Start 09/28/16 at 06:00 Mupirocin (Bactroban) 1 applic BID TOP Last administered on 10/25/16 08:46; Admin Dose 1 APPLIC; Start 09/28/16 at 21:00 Cromolyn Sodium (Nasalcrom) 1 spray QID NASAL Last administered on 10/25/16 12 :21; Admin Dose 1 SPRAY; Start 09/29/16 at 11:02 Linezolid (Zyvox) 600 mg BID PO Last administered on 10/25/16 08:34; Admin Dose 600 MG; Start 09/29/16 at 21:00 Amikacin Sulfate (Amikacin Iv Per Pharmacy) AMIKACIN PER PHARMACY NOTE XX ; Start 09/29/16 at 15:30 Phenol (Cepastat Lozenge) 1 lozenge Q2H PRN MT SORE THROAT Last administered on 10/02/16 12:48; Admin Dose 1 LOZENGE; Start 10/01/16 at 19:00 IV Flush (NS 10 ml) 10 ml PRN PRN IV IV PROTOCOL; Start 10/02/16 at 19:00 Lactobacillus Acidophilus (Florajen3 Capsule) 1 each TID PO Last administered on 10/25/16 12:13; Admin Dose 1 EACH; Start 10/03/16 at 21:00 Hydromorphone HCl (Dilaudid) 0.5 mg Q4H PRN IV PAIN Last administered on 08:35; Admin Dose 0.5 MG; Start 10/06/16 at 18:30 Promethazine HCl/ Codeine (Phenergan/ Codeine) 10 ml BID PRN PO COUGH; Start at 20:30 Morphine Sulfate 60 mg 60 mg Q6 PO Last administered on 10/21/16 12:28; Admin Dose 60 MG; Start 10/09/16 at 12:00; Status Future Hold Metronidazole 250 mg/N/A 50 ml @ 50 mls/hr Q8 IVPB Last administered on 04:15; Admin Dose 50 MLS/HR; Start 10/10/16 at 22:00 Amikacin Sulfate/ Dextrose (Amikacin/D5W) 102.8 ml @ 102.8 mls/ hr Q36H IVPB Last administered on 10/25/16 08:33; Admin Dose 102.8 MLS/HR; Start 10/14/16 at 21:00 Sodium Chloride (Nacl) 1 gm TID PO Last administered on 10/25/16 12:14; Admin Dose 1 GM; Start 10/16/16 at 17:00 Fluconazole (Diflucan) 100 mg DAILY PO Last administered on 10/25/16 08:34; Admin Dose 100 MG; Start 10/17/16 at 13:00 DIONNE SAUCEDA MD October 25, 2016 12:32
--- NOTE | 2016-10-25 13:33 | CONS ---
Date/Time of Note Date/Time of Note DATE: 10/25/16 TIME: 13:31 Assessment/Plan Assessment/Plan Chief Complaint/Hosp Course SUBJECTIVE: No events overnight. No fevers. NAD ANTIMICROBIALS: 1. Amikacin. 2. Fluconazole. 3. Flagyl. 4. Zyvox. 5. Topical Bactroban to nares. INDWELLINGS: PEG, George, PICC line. PHYSICAL EXAMINATION: GENERAL: A cachectic elderly woman who is awake, in no distress. HEENT: Head atraumatic, normocephalic. Sclerae anicteric. Buccal mucosa dry. NECK: Supple. CHEST: Rise symmetrical. Breath sounds clear, diminished to bases. HEART: S1, S2. ABDOMEN: Soft, bowel sounds present. EXTREMITIES: Without cyanosis. ASSESSMENT: 1. Systemic inflammatory response syndrome with persistent leukocytosis secondary to infected wounds, and possibly secondary to malignancy. 2. Lung cancer. 3. Cachexia. 4. Sacral decubitus with exposed bone and culture growing multidrug resistant organisms, status post debridement with wound VAC application. 5. History of Clostridium difficile, pneumonia and urinary tract infection. 6. Oral thrush. PLAN: Clinically unchanged, wound cx growing MDR A.b, will change abx to oral Bactrim, continue local wound care, aspiration precautions DW staff Problems: Consultation Date/Type/Reason Admit Date/Time Sep 26, 2016 at 20:07 Type of Consultation: ID Referring Provider: DRE LOBATO MD Exam/Review of Systems Vital Signs Vitals Vital Signs Date Time Temp Pulse Resp B/P Pulse Ox O2 Delivery O2 Flow Rate FiO2 10/25/16 10:51 Nasal Cannula 2.0 10/25/16 08:00 97.3 100 20 136/90 98 Intake and Output 10/24/16 10/24/16 10/25/16 15:00 23:00 07:00 Intake Total 100 ml 150 ml 1030 ml Output Total 1050 ml 1300 ml Balance 100 ml -900 ml -270 ml Results Result Diagram: 10/25/16 0745 10/25/16 0745 Results 24 hrs Laboratory Tests Test 10/24/16 21:08 10/25/16 07:45 10/25/16 07:46 10/25/16 12:40 Sodium Level 128 L 133 L White Blood Count 16.9 H Red Blood Count 3.69 L Hemoglobin 9.4 L Hematocrit 30.5 L Mean Corpuscular Volume 82.7 Mean Corpuscular Hemoglobin 25.5 L Mean Corpuscular Hemoglobin Concent 30.8 L Red Cell Distribution Width 18.0 H Platelet Count 361 Mean Platelet Volume 8.7 Neutrophils % 73.6 Lymphocytes % 11.6 L Monocytes % 11.4 H Eosinophils % 2.2 Basophils % 0.5 Nucleated Red Blood Cells % 0.0 Neutrophils # 12.4 H Lymphocytes # 2.0 Monocytes # 1.9 H Eosinophils # 0.4 Basophils # 0.1 Nucleated Red Blood Cells # 0.0 Potassium Level 2.9 *L Chloride Level 91 L Carbon Dioxide Level 29 Anion Gap 16 Blood Urea Nitrogen 18 Creatinine 0.49 Glucose Level 121 Calcium Level 8.5 Amikacin Level Trough Lab Scanned Report REFERENCE LAB Medications Medications Current Medications Ondansetron HCl (Zofran Inj) 4 mg Q6 PRN IV NAUSEA AND/OR VOMITING; Start 09/26 at 22:30 Acetaminophen (Tylenol Tab) 650 mg Q6H PRN PO PAIN AND OR ELEVATED TEMP Last administered on 10/23/16 18:08; Admin Dose 650 MG; Start 09/26/16 at 23:00 Alprazolam (Xanax) 0.5 mg Q12 PRN PO ANXIETY Last administered on 10/24/16 21: 32; Admin Dose 0.5 MG; Start 09/26/16 at 23:00 Ascorbic Acid (Vitamin C) 500 mg BID PO Last administered on 10/25/16 08:34; Admin Dose 500 MG; Start 09/27/16 at 09:00 Atorvastatin Calcium (Lipitor) 20 mg QHS PO Last administered on 10/24/16 21:33 ; Admin Dose 20 MG; Start 09/27/16 at 21:00 Diazepam (Valium) 10 mg DAILY PO Last administered on 10/25/16 08:34; Admin Dose 10 MG; Start 09/27/16 at 09:00 Docusate Sodium (Colace) 100 mg Q12H PRN PO CONSTIPATION; Start 09/26/16 at 23: 00 Duloxetine HCl (Cymbalta) 20 mg DAILY PO Last administered on 10/25/16 08:34; Admin Dose 20 MG; Start 09/27/16 at 09:00 Zolpidem Tartrate (Ambien) 5 mg QHS PRN PO INSOMNIA Last administered on 02:35; Admin Dose 5 MG; Start 09/26/16 at 23:00 Collagenase (Santyl) 1 applic DAILY TOP Last administered on 10/23/16 15:00; Admin Dose 1 APPLIC; Start 09/27/16 at 09:00 Collagenase (Santyl) 1 applic PRN PRN TOP SOILED OR DISLODGED DRESSING; Start 09/27/16 at 05:00 Lansoprazole (Prevacid) 30 mg DAILY@06 GTB Last administered on 10/25/16 04:15 ; Admin Dose 30 MG; Start 09/28/16 at 06:00 Mupirocin (Bactroban) 1 applic BID TOP Last administered on 10/25/16 08:46; Admin Dose 1 APPLIC; Start 09/28/16 at 21:00 Cromolyn Sodium (Nasalcrom) 1 spray QID NASAL Last administered on 10/25/16 12 :21; Admin Dose 1 SPRAY; Start 09/29/16 at 11:02 Linezolid (Zyvox) 600 mg BID PO Last administered on 10/25/16 08:34; Admin Dose 600 MG; Start 09/29/16 at 21:00 Amikacin Sulfate (Amikacin Iv Per Pharmacy) AMIKACIN PER PHARMACY NOTE XX ; Start 09/29/16 at 15:30 Phenol (Cepastat Lozenge) 1 lozenge Q2H PRN MT SORE THROAT Last administered on 10/02/16 12:48; Admin Dose 1 LOZENGE; Start 10/01/16 at 19:00 IV Flush (NS 10 ml) 10 ml PRN PRN IV IV PROTOCOL; Start 10/02/16 at 19:00 Lactobacillus Acidophilus (Florajen3 Capsule) 1 each TID PO Last administered on 10/25/16 12:13; Admin Dose 1 EACH; Start 10/03/16 at 21:00 Hydromorphone HCl (Dilaudid) 0.5 mg Q4H PRN IV PAIN Last administered on 08:35; Admin Dose 0.5 MG; Start 10/06/16 at 18:30 Promethazine HCl/ Codeine (Phenergan/ Codeine) 10 ml BID PRN PO COUGH; Start at 20:30 Morphine Sulfate 60 mg 60 mg Q6 PO Last administered on 10/21/16 12:28; Admin Dose 60 MG; Start 10/09/16 at 12:00; Status Future Hold Metronidazole 250 mg/N/A 50 ml @ 50 mls/hr Q8 IVPB Last administered on 04:15; Admin Dose 50 MLS/HR; Start 10/10/16 at 22:00 Amikacin Sulfate/ Dextrose (Amikacin/D5W) 102.8 ml @ 102.8 mls/ hr Q36H IVPB Last administered on 10/25/16 08:33; Admin Dose 102.8 MLS/HR; Start 10/14/16 at 21:00 Sodium Chloride (Nacl) 1 gm TID PO Last administered on 10/25/16 12:14; Admin Dose 1 GM; Start 10/16/16 at 17:00 Fluconazole 100 mg 100 mg DAILY PO Last administered on 10/25/16 08:34; Admin Dose 100 MG; Start 10/17/16 at 13:00 Potassium Chloride/Sodium Chloride (KCl/NS) 110 ml @ 55 mls/hr ONCE ONCE IVPB ; Start 10/25/16 at 14:00; Stop 10/25/16 at 15:59 RUBIN MAYEN NP October 25, 2016 13:33
[2016-10-25] MEDS ORDERED: POTASSIUM CHLORIDE 20 MEQ in SOD CHLORIDE 0.9% 100 ML IVPB ONE (14:00)
--- NOTE | 2016-10-25 17:58 | PN ---
Date/Time of Note Date/Time of Note DATE: 10/25/16 TIME: 17:57 Assessment/Plan Lines/Catheters IV Catheter Type (from Nrs): PICC Line George in Place (from Nrs): Yes Assessment/Plan Chief Complaint/Hosp Course 1. Multiple decubitus ulcers with debris -Offload -Optimize nutrition -Vitamin C -Local care -Debridement sacrococcyx prn 2. UTI s/p abx 3. 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 Acute on chronic diastolic heart failure -Judicious fluid management -Cardiac optimization 5. Hypertension -Diet and medication control 6. Chronic urinary retention with George 7. Depression. -Medical management 8. Hypothyroidism by history. -Synthroid 9. Anemia of chronic disease in addition to iron deficiency anemia. -Continue iron supplements. -Transfusion when necessary 10. Chronic pain syndrome. Continue pain management. Thank you Problems: Subjective 24 Hr Interval Summary Leukocytosis. No fevers, chills, nausea, vomiting, or abdominal pain. No abnormal vaginal discharge. No bloating. No cough, sz, bloating. No robles/dizzy/ visual or neuro changes. Exam/Review of Systems Vital Signs Vitals Vital Signs Date Time Temp Pulse Resp B/P Pulse Ox O2 Delivery O2 Flow Rate FiO2 10/25/16 10:51 Nasal Cannula 2.0 10/25/16 08:00 97.3 100 20 136/90 98 Intake and Output 10/24/16 10/24/16 10/25/16 15:00 23:00 07:00 Intake Total 100 ml 150 ml 1030 ml Output Total 1050 ml 1300 ml Balance 100 ml -900 ml -270 ml Exam Free Text/Dictation GENERAL: Elderly, cachectic, no acute distress. HEENT: Head is atraumatic, normocephalic. Pupils equal, round, reactive to light and accommodation. Oral mucosa is pink and moist. NECK: Supple, no cervical lymphadenopathy LUNGS: Normal respiratory effort CARDIAC: S1 and S2. Irregular ABDOMEN: Flat, soft and nondistended. Nontender. No rebound or guarding. SKIN: Multiple decubitus wounds/ulcers buttock sacrum and right lower extremity EXTREMITIES: No edema. Pulses equal bilaterally, 2+. NEUROLOGICAL: Responsive VASCULAR: Refill is less than 2 seconds Results Result Diagram: 10/25/16 0745 10/25/16 0745 ZAK POSEY MD October 25, 2016 17:58
--- NOTE | 2016-10-25 18:08 | PN ---
Date/Time of Note Date/Time of Note DATE: 10/25/16 TIME: 18:07 Assessment/Plan VTE Prophylaxis VTE Prophylaxis Intervention: SCD's Lines/Catheters IV Catheter Type (from [facility]): PICC Line Central line still needed: Yes Urinary Cath still in place: Yes Reason Cath still needed: urinary retention Assessment/Plan Chief Complaint/Hosp Course ASSESSMENT AND PLAN: - Recurrent sepsis, resolving. Dr. Coleamn is following in infection disease consultation. Continue antibiotics per ID. - Persistent leukocytosis secondary to multiple wounds and malignancy. - Hyponatremia, Dr. Zapata is following in nephrology consultation. - Polymicrobial urinary tract infection, s/p treatment. - Left lung squamous cell carcinoma. Patient is not a candidate for chemotherapy. - Chronic obstructive pulmonary disease. Continue breathing treatment. - Multiple decubitus ulcers with history of debridement. Continue current wound care. Wound culture is growing polymicrobial organisms. Continue antibiotics per ID. - Methicillin-resistant Staphylococcus aureus nares colonization. - Cachexia. Optimize nutrition. - Dysphagia with G-tube placement. Continue G-tube feeding. Aspiration precaution. - Chronic urinary retention. Continue George catheter. - Hypothyroidism. TSH is within normal limits. Continue Synthroid. - Anemia of chronic disease. Continue to monitor hemoglobin and hematocrit. Blood transfusion as needed. Further recommendations based on clinical course. Plan of care discussed with Dr. Dozier. Problems: Subjective 24 Hr Interval Summary Free Text/Dictation No acute events, pending sacral wound debridement. Exam/Review of Systems Vital Signs Vitals Vital Signs Date Time Temp Pulse Resp B/P Pulse Ox O2 Delivery O2 Flow Rate FiO2 10/25/16 10:51 Nasal Cannula 2.0 10/25/16 08:00 97.3 100 20 136/90 98 Intake and Output 10/24/16 10/24/16 10/25/16 15:00 23:00 07:00 Intake Total 100 ml 150 ml 1030 ml Output Total 1050 ml 1300 ml Balance 100 ml -900 ml -270 ml Exam Constitutional: alert, oriented Psych: no complaints Head: atraumatic, normocephalic Eyes: nl conjunctiva ENMT: nl external ears & nose Neck: non-tender, supple Respiratory: clear to auscultation, normal air movement Cardiovascular: nl pulses, regular rate and rhythm Gastrointestinal: non-tender, other (G-tube), soft Musculoskeletal: nl extremities to inspection Extremities: normal pulses 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 Results Result Diagram: 10/25/1645 10/25/16 0745 Results 24 hrs Laboratory Tests Test 10/24/16 21:08 10/25/16 07:45 10/25/16 07:46 10/25/16 12:40 Sodium Level 128 L 133 L White Blood Count 16.9 H Red Blood Count 3.69 L Hemoglobin 9.4 L Hematocrit 30.5 L Mean Corpuscular Volume 82.7 Mean Corpuscular Hemoglobin 25.5 L Mean Corpuscular Hemoglobin Concent 30.8 L Red Cell Distribution Width 18.0 H Platelet Count 361 Mean Platelet Volume 8.7 Neutrophils % 73.6 Lymphocytes % 11.6 L Monocytes % 11.4 H Eosinophils % 2.2 Basophils % 0.5 Nucleated Red Blood Cells % 0.0 Neutrophils # 12.4 H Lymphocytes # 2.0 Monocytes # 1.9 H Eosinophils # 0.4 Basophils # 0.1 Nucleated Red Blood Cells # 0.0 Potassium Level 2.9 *L Chloride Level 91 L Carbon Dioxide Level 29 Anion Gap 16 Blood Urea Nitrogen 18 Creatinine 0.49 Glucose Level 121 Calcium Level 8.5 Amikacin Level Trough Lab Scanned Report REFERENCE LAB Medications Medications Current Medications Ondansetron HCl (Zofran Inj) 4 mg Q6 PRN IV NAUSEA AND/OR VOMITING; Start 09/26 at 22:30 Acetaminophen (Tylenol Tab) 650 mg Q6H PRN PO PAIN AND OR ELEVATED TEMP Last administered on 10/23/16 18:08; Admin Dose 650 MG; Start 09/26/16 at 23:00 Alprazolam (Xanax) 0.5 mg Q12 PRN PO ANXIETY Last administered on 10/24/16 21: 32; Admin Dose 0.5 MG; Start 09/26/16 at 23:00 Ascorbic Acid (Vitamin C) 500 mg BID PO Last administered on 10/25/16 08:34; Admin Dose 500 MG; Start 09/27/16 at 09:00 Atorvastatin Calcium (Lipitor) 20 mg QHS PO Last administered on 10/24/16 21:33 ; Admin Dose 20 MG; Start 09/27/16 at 21:00 Diazepam (Valium) 10 mg DAILY PO Last administered on 10/25/16 08:34; Admin Dose 10 MG; Start 09/27/16 at 09:00 Docusate Sodium (Colace) 100 mg Q12H PRN PO CONSTIPATION; Start 09/26/16 at 23: 00 Duloxetine HCl (Cymbalta) 20 mg DAILY PO Last administered on 10/25/16 08:34; Admin Dose 20 MG; Start 09/27/16 at 09:00 Zolpidem Tartrate (Ambien) 5 mg QHS PRN PO INSOMNIA Last administered on 02:35; Admin Dose 5 MG; Start 09/26/16 at 23:00 Collagenase (Santyl) 1 applic DAILY TOP Last administered on 10/23/16 15:00; Admin Dose 1 APPLIC; Start 09/27/16 at 09:00 Collagenase (Santyl) 1 applic PRN PRN TOP SOILED OR DISLODGED DRESSING; Start 09/27/16 at 05:00 Lansoprazole (Prevacid) 30 mg DAILY@06 GTB Last administered on 10/25/16 04:15 ; Admin Dose 30 MG; Start 09/28/16 at 06:00 Mupirocin (Bactroban) 1 applic BID TOP Last administered on 10/25/16 08:46; Admin Dose 1 APPLIC; Start 09/28/16 at 21:00 Cromolyn Sodium (Nasalcrom) 1 spray QID NASAL Last administered on 10/25/16 17 :21; Admin Dose 1 SPRAY; Start 09/29/16 at 11:02 Phenol (Cepastat Lozenge) 1 lozenge Q2H PRN MT SORE THROAT Last administered on 10/02/16 12:48; Admin Dose 1 LOZENGE; Start 10/01/16 at 19:00 IV Flush (NS 10 ml) 10 ml PRN PRN IV IV PROTOCOL; Start 10/02/16 at 19:00 Lactobacillus Acidophilus (Florajen3 Capsule) 1 each TID PO Last administered on 10/25/16 12:13; Admin Dose 1 EACH; Start 10/03/16 at 21:00 Hydromorphone HCl (Dilaudid) 0.5 mg Q4H PRN IV PAIN Last administered on 08:35; Admin Dose 0.5 MG; Start 10/06/16 at 18:30 Promethazine HCl/ Codeine (Phenergan/ Codeine) 10 ml BID PRN PO COUGH; Start at 20:30 Morphine Sulfate 60 mg 60 mg Q6 PO Last administered on 10/21/16 12:28; Admin Dose 60 MG; Start 10/09/16 at 12:00; Status Future Hold Metronidazole/N/A (Flagyl 500 Mg (Pmx)/Evac Container) 50 ml @ 50 mls/hr Q8 IVPB Last administered on 10/25/16 13:31; Admin Dose 50 MLS/HR; Start at 22:00 Sodium Chloride (Nacl) 1 gm TID PO Last administered on 10/25/16 12:14; Admin Dose 1 GM; Start 10/16/16 at 17:00 Fluconazole (Diflucan) 100 mg DAILY PO Last administered on 10/25/16 08:34; Admin Dose 100 MG; Start 10/17/16 at 13:00 Trimethoprim/ Sulfamethoxazole (Bactrim (Ds)) 1 tab BID NGT ; Start 10/25/16 at 21:00 REBECCA ISLAS October 25, 2016 18:08
[2016-10-25] MEDS: ATORVASTATIN 20 MG TAB PO SCH (21:11)
[2016-10-25] MEDS: ALPRAZOLAM 0.5 MG TAB PO PRN (21:11)
[2016-10-25] MEDS: TRIMETHOPRIM/SULFAMETHOX (DS) TAB NGT SCH (21:11)
[2016-10-26] MEDS: HYDROmorphONE 1 MG/ML SYG IV PRN ×5 (00:36→21:18)
[2016-10-26] MEDS: LANSOPRAZOLE 30 MG CAP GTB SCH (05:16)
[2016-10-26] MEDS: LEVOTHYROXINE 125 MCG TAB PO SCH (05:16)
[2016-10-26] MEDS: metroNIDAZOLE 500 MG/NS (PMX) 250 MG in EVAC CONTAINER 1 BOTTLE IVPB SCH (05:17)
[2016-10-26 08:09] VITALS: BP 138/90; RESP 22
[2016-10-26] MEDS: TRIMETHOPRIM/SULFAMETHOX (DS) TAB NGT SCH (08:49)
[2016-10-26] MEDS: ASCORBIC ACID 500 MG TAB PO SCH ×2 (08:49→21:06)
[2016-10-26] MEDS: DULOXETINE 20 MG CAP DR PO SCH (08:49)
[2016-10-26] MEDS: L ACIDOPHIL/B LACTIS/B LONGUM CAPSULE PO SCH ×3 (08:49→21:06)
[2016-10-26] MEDS: FLUCONAZOLE 100 MG TAB PO SCH (08:50)
[2016-10-26] MEDS: SODIUM CHLORIDE 1 GM TAB PO SCH ×3 (08:50→21:06)
[2016-10-26] MEDS: DIAZEPAM 5 MG TAB PO SCH (08:50)
[2016-10-26] MEDS: COLLAGENASE 30 GM TUBE TOP SCH (09:00)
[2016-10-26] MEDS: CROMOLYN 4% 26ML NAS INH NASAL SCH ×4 (09:04→21:05)
[2016-10-26] MEDS: MUPIROCIN 2% 22 GM OINT TOP SCH (09:04)
[2016-10-26] MEDS: ALBUTEROL/IPRATROPIUM (NEB) 3 ML AMP NEB PRN (11:04)
--- NOTE | 2016-10-26 11:07 | CONS ---
Date/Time of Note Date/Time of Note DATE: 10/26/16 TIME: 11:05 Assessment/Plan Assessment/Plan Additional Assessment/Plan 1. Hyponatremia, multifactorial 2. Status post acute kidney injury on chronic kidney disease due to systemic inflammatory response syndrome. 3. Systemic inflammatory response syndrome. 4. History of recurrent polymicrobial urinary tract infections. 5. History of dementia. 6. History of previous cerebrovascular accident. 7. History of chronic obstructive pulmonary disease, recently had acute respiratory failure secondary to chronic obstructive pulmonary disease exacerbation. 8. History of urinary retention with a chronic George catheter in place. 9. Chronic debility with cachexia. 10. Multiple decubitus ulcers with a history of debridement. 11. History of degenerative joint disease of spine. 12. History of hypertension and hypertensive heart disease with mild to moderate concentric left ventricular hypertrophy and echocardiogram with diastolic dysfunction stage I. PLAN: Na improved to 133 with one dose of tolvaptan 15 mg on 10/24/16,-pt likey has Component of SAIDH causing hypoantreia, due to acute on chronic pain continued Na Chloride tablet 1 gram PO TID K was replaced yesterday- today labs not available yet due to pt refused labs will follow up Consultation Date/Type/Reason Admit Date/Time Sep 26, 2016 at 20:07 Type of Consultation: NEPHROLOGY Referring Provider: DRE LOBATO MD 24 HR Interval Summary Free Text/Dictation K was replaced yesterday, Bp stable, Na improved to 133- no labs today to review yet Exam/Review of Systems Vital Signs Vitals Vital Signs Date Time Temp Pulse Resp B/P Pulse Ox O2 Delivery O2 Flow Rate FiO2 10/26/16 10:16 2.0 10/26/16 08:09 97.5 104 22 138/90 92 10/25/16 10:51 Nasal Cannula Intake and Output 10/25/16 10/25/16 10/26/16 15:00 23:00 07:00 Intake Total 152.8 ml 1250 ml 100 ml Output Total 1000 ml Balance 152.8 ml 250 ml 100 ml Exam GENERAL: A cachectic elderly woman who is awake, in no distress. HEENT: Head atraumatic, normocephalic. Sclerae anicteric. Buccal mucosa dry. NECK: Supple. CHEST: Rise symmetrical. Breath sounds clear, diminished to bases. HEART: S1, S2. ABDOMEN: Soft, bowel sounds present. EXTREMITIES: Without cyanosis. Results Result Diagram: 10/25/1645 10/25/1645 Results 24 hrs Laboratory Tests Test 10/25/16 12:40 Lab Scanned Report REFERENCE LAB Medications Medications Current Medications Ondansetron HCl (Zofran Inj) 4 mg Q6 PRN IV NAUSEA AND/OR VOMITING; Start 09/26 at 22:30 Acetaminophen (Tylenol Tab) 650 mg Q6H PRN PO PAIN AND OR ELEVATED TEMP Last administered on 10/23/16 18:08; Admin Dose 650 MG; Start 09/26/16 at 23:00 Alprazolam (Xanax) 0.5 mg Q12 PRN PO ANXIETY Last administered on 10/25/16 21: 11; Admin Dose 0.5 MG; Start 09/26/16 at 23:00 Ascorbic Acid (Vitamin C) 500 mg BID PO Last administered on 10/26/16 08:49; Admin Dose 500 MG; Start 09/27/16 at 09:00 Atorvastatin Calcium (Lipitor) 20 mg QHS PO Last administered on 10/25/16 21: 11; Admin Dose 20 MG; Start 09/27/16 at 21:00 Diazepam (Valium) 10 mg DAILY PO Last administered on 10/26/16 08:50; Admin Dose 10 MG; Start 09/27/16 at 09:00 Docusate Sodium (Colace) 100 mg Q12H PRN PO CONSTIPATION; Start 09/26/16 at 23: 00 Duloxetine HCl (Cymbalta) 20 mg DAILY PO Last administered on 10/26/16 08:49; Admin Dose 20 MG; Start 09/27/16 at 09:00 Zolpidem Tartrate (Ambien) 5 mg QHS PRN PO INSOMNIA Last administered on 02:35; Admin Dose 5 MG; Start 09/26/16 at 23:00 Collagenase (Santyl) 1 applic DAILY TOP Last administered on 10/23/16 15:00; Admin Dose 1 APPLIC; Start 09/27/16 at 09:00 Collagenase (Santyl) 1 applic PRN PRN TOP SOILED OR DISLODGED DRESSING; Start 09/27/16 at 05:00 Lansoprazole (Prevacid) 30 mg DAILY@06 GTB Last administered on 10/26/16 05:16 ; Admin Dose 30 MG; Start 09/28/16 at 06:00 Mupirocin (Bactroban) 1 applic BID TOP Last administered on 10/26/16 09:04; Admin Dose 1 APPLIC; Start 09/28/16 at 21:00 Cromolyn Sodium (Nasalcrom) 1 spray QID NASAL Last administered on 10/26/16 09 :04; Admin Dose 1 SPRAY; Start 09/29/16 at 11:02 Phenol (Cepastat Lozenge) 1 lozenge Q2H PRN MT SORE THROAT Last administered on 10/02/16 12:48; Admin Dose 1 LOZENGE; Start 10/01/16 at 19:00 IV Flush (NS 10 ml) 10 ml PRN PRN IV IV PROTOCOL; Start 10/02/16 at 19:00 Lactobacillus Acidophilus (Florajen3 Capsule) 1 each TID PO Last administered on 10/26/16 08:49; Admin Dose 1 EACH; Start 10/03/16 at 21:00 Hydromorphone HCl (Dilaudid) 0.5 mg Q4H PRN IV PAIN Last administered on 07:48; Admin Dose 0.5 MG; Start 10/06/16 at 18:30 Promethazine HCl/ Codeine (Phenergan/ Codeine) 10 ml BID PRN PO COUGH; Start at 20:30 Morphine Sulfate 60 mg 60 mg Q6 PO Last administered on 10/21/16 12:28; Admin Dose 60 MG; Start 10/09/16 at 12:00; Status Future Hold Metronidazole/N/A (Flagyl 500 Mg (Pmx)/Evac Container) 50 ml @ 50 mls/hr Q8 IVPB Last administered on 10/26/16 05:17; Admin Dose 50 MLS/HR; Start at 22:00 Sodium Chloride (Nacl) 1 gm TID PO Last administered on 10/26/16 08:50; Admin Dose 1 GM; Start 10/16/16 at 17:00 Fluconazole (Diflucan) 100 mg DAILY PO Last administered on 10/26/16 08:50; Admin Dose 100 MG; Start 10/17/16 at 13:00 Trimethoprim/ Sulfamethoxazole (Bactrim (Ds)) 1 tab BID NGT Last administered on 10/26/16t 08:49; Admin Dose 1 TAB; Start 10/25/16 at 21:00 DIONNE SAUCEDA MD October 26, 2016 11:07
[2016-10-26 12:02] LABS: POTASSIUM 3.3 mmol/L (3.5-5.1)
[2016-10-26 12:05] LABS: CREATININE 0.46 mg/dl (0.44-1.00)
[2016-10-26 12:06] LABS: CALCIUM 8.2 mg/dl (8.4-10.2)
[2016-10-26] MEDS ORDERED: metroNIDAZOLE 250 MG TAB NGT SCH (13:00)
--- NOTE | 2016-10-26 14:04 | CONS ---
Date/Time of Note Date/Time of Note DATE: 10/26/16 TIME: 13:59 Assessment/Plan Assessment/Plan Chief Complaint/Hosp Course SUBJECTIVE: No events overnight. No fevers. NAD ANTIMICROBIALS: Fluconazole, Flagyl, Bactrim INDWELLINGS: PEG, George, PICC line. PHYSICAL EXAMINATION: GENERAL: A cachectic elderly woman who is awake, in no distress. HEENT: Head atraumatic, normocephalic. Sclerae anicteric. Buccal mucosa dry. NECK: Supple. CHEST: Rise symmetrical. Breath sounds clear, diminished to bases. HEART: S1, S2. ABDOMEN: Soft, bowel sounds present. EXTREMITIES: Without cyanosis. ASSESSMENT: 1. Systemic inflammatory response syndrome with persistent leukocytosis possibly secondary to malignancy. 2. Lung cancer. 3. Cachexia. 4. Sacral decubitus with exposed bone and culture growing multidrug resistant organisms, status post debridement with wound VAC application, wound looks clean. 5. History of Clostridium difficile, pneumonia and urinary tract infection. 6. Oral thrush. PLAN: Clinically unchanged, per dw Dr Sinclair the wound is clean, non infected, cx growing MDRO consistent with colonization, will dc abx DW staff Problems: Consultation Date/Type/Reason Admit Date/Time Sep 26, 2016 at 20:07 Type of Consultation: ID Referring Provider: DRE LOBATO MD Exam/Review of Systems Vital Signs Vitals Vital Signs Date Time Temp Pulse Resp B/P Pulse Ox O2 Delivery O2 Flow Rate FiO2 10/26/16 11:05 18 96 Nasal Cannula 2.0 10/26/16 08:09 97.5 104 138/90 Intake and Output 10/25/16 10/25/16 10/26/16 15:00 23:00 07:00 Intake Total 152.8 ml 1250 ml 100 ml Output Total 1000 ml Balance 152.8 ml 250 ml 100 ml Results Result Diagram: 10/25/16 0745 10/26/16 1130 Results 24 hrs Laboratory Tests Test 10/26/16 11:30 Sodium Level 134 L Potassium Level 3.3 L Chloride Level 94 L Carbon Dioxide Level 29 Anion Gap 14 Blood Urea Nitrogen 21 H Creatinine 0.46 Glucose Level 118 Calcium Level 8.2 L Medications Medications Current Medications Ondansetron HCl (Zofran Inj) 4 mg Q6 PRN IV NAUSEA AND/OR VOMITING; Start 09/26 at 22:30 Acetaminophen (Tylenol Tab) 650 mg Q6H PRN PO PAIN AND OR ELEVATED TEMP Last administered on 10/23/16 18:08; Admin Dose 650 MG; Start 09/26/16 at 23:00 Alprazolam (Xanax) 0.5 mg Q12 PRN PO ANXIETY Last administered on 10/25/16 21: 11; Admin Dose 0.5 MG; Start 09/26/16 at 23:00 Ascorbic Acid (Vitamin C) 500 mg BID PO Last administered on 10/26/16 08:49; Admin Dose 500 MG; Start 09/27/16 at 09:00 Atorvastatin Calcium (Lipitor) 20 mg QHS PO Last administered on 10/25/16 21: 11; Admin Dose 20 MG; Start 09/27/16 at 21:00 Diazepam (Valium) 10 mg DAILY PO Last administered on 10/26/16 08:50; Admin Dose 10 MG; Start 09/27/16 at 09:00 Docusate Sodium (Colace) 100 mg Q12H PRN PO CONSTIPATION; Start 09/26/16 at 23: 00 Duloxetine HCl (Cymbalta) 20 mg DAILY PO Last administered on 10/26/16 08:49; Admin Dose 20 MG; Start 09/27/16 at 09:00 Zolpidem Tartrate (Ambien) 5 mg QHS PRN PO INSOMNIA Last administered on 02:35; Admin Dose 5 MG; Start 09/26/16 at 23:00 Collagenase (Santyl) 1 applic DAILY TOP Last administered on 10/23/16 15:00; Admin Dose 1 APPLIC; Start 09/27/16 at 09:00 Collagenase (Santyl) 1 applic PRN PRN TOP SOILED OR DISLODGED DRESSING; Start 09/27/16 at 05:00 Lansoprazole (Prevacid) 30 mg DAILY@06 GTB Last administered on 10/26/16 05:16 ; Admin Dose 30 MG; Start 09/28/16 at 06:00 Mupirocin (Bactroban) 1 applic BID TOP Last administered on 10/26/16 09:04; Admin Dose 1 APPLIC; Start 09/28/16 at 21:00 Cromolyn Sodium (Nasalcrom) 1 spray QID NASAL Last administered on 10/26/16 09 :04; Admin Dose 1 SPRAY; Start 09/29/16 at 11:02 Phenol (Cepastat Lozenge) 1 lozenge Q2H PRN MT SORE THROAT Last administered on 10/02/16 12:48; Admin Dose 1 LOZENGE; Start 10/01/16 at 19:00 IV Flush (NS 10 ml) 10 ml PRN PRN IV IV PROTOCOL; Start 10/02/16 at 19:00 Lactobacillus Acidophilus (Florajen3 Capsule) 1 each TID PO Last administered on 10/26/16 13:21; Admin Dose 1 EACH; Start 10/03/16 at 21:00 Hydromorphone HCl (Dilaudid) 0.5 mg Q4H PRN IV PAIN Last administered on 11:49; Admin Dose 0.5 MG; Start 10/06/16 at 18:30 Promethazine HCl/ Codeine (Phenergan/ Codeine) 10 ml BID PRN PO COUGH; Start at 20:30 Morphine Sulfate (Ms Contin (Er)) 60 mg Q6 PO Last administered on 10/21/16 12: 28; Admin Dose 60 MG; Start 10/09/16 at 12:00; Status Future Hold Sodium Chloride (Nacl) 1 gm TID PO Last administered on 10/26/16 13:20; Admin Dose 1 GM; Start 10/16/16 at 17:00 Fluconazole (Diflucan) 100 mg DAILY PO Last administered on 10/26/16 08:50; Admin Dose 100 MG; Start 10/17/16 at 13:00 Trimethoprim/ Sulfamethoxazole (Bactrim (Ds)) 1 tab BID NGT Last administered on 10/26/16 08:49; Admin Dose 1 TAB; Start 10/25/16 at 21:00 Metronidazole (Flagyl) 250 mg TID NGT Last administered on 10/26/16 13:21; Admin Dose 250 MG; Start 10/26/16 at 13:00 RUBIN MAYEN NP October 26, 2016 14:04
--- NOTE | 2016-10-26 15:24 | PN ---
Date/Time of Note Date/Time of Note DATE: 10/26/16 TIME: 15:22 Assessment/Plan VTE Prophylaxis VTE Prophylaxis Intervention: other Lines/Catheters IV C[facility] Type ([facility] PICC Line Central line still needed: Yes Urinary Cath still in place: Yes Reason Cath still needed: urinary retention Assessment/Plan Assessment/Plan - Hypokalemia- replet K, am labs - Recurrent sepsis, resolving. Dr. Coleman is following in infection disease consultation. Continue antibiotics per ID. - Persistent leukocytosis secondary to multiple wounds and malignancy. - Hyponatremia, Dr. Zapata is following in nephrology consultation. - Polymicrobial urinary tract infection, s/p treatment. - Left lung squamous cell carcinoma. Patient is not a candidate for chemotherapy. - Chronic obstructive pulmonary disease. Continue breathing treatment. - Multiple decubitus ulcers with history of debridement. Continue current wound care. Wound culture is growing polymicrobial organisms. Continue antibiotics per ID. - Methicillin-resistant Staphylococcus aureus nares colonization. - Cachexia. Optimize nutrition. - Dysphagia with G-tube placement. Continue G-tube feeding. Aspiration precaution. - Chronic urinary retention. Continue George catheter. - Hypothyroidism. TSH is within normal limits. Continue Synthroid. - Anemia of chronic disease. Continue to monitor hemoglobin and hematocrit. Blood transfusion as needed. Further recommendations based on clinical course. Plan of care discussed with Dr. Dozier. Exam/Review of Systems Vital Signs Vitals Vital Signs Date Time Temp Pulse Resp B/P Pulse Ox O2 Delivery O2 Flow Rate FiO2 10/26/16 11:05 18 96 Nasal Cannula 2.0 10/26/16 08:09 97.5 104 138/90 Intake and Output 10/25/16 10/25/16 10/26/16 15:00 23:00 07:00 Intake Total 152.8 ml 1250 ml 100 ml Output Total 1000 ml Balance 152.8 ml 250 ml 100 ml Results Result Diagram: 10/25/16 0745 10/26/16 1130 Results 24 hrs Laboratory Tests Test 10/26/16 11:30 Sodium Level 134 L Potassium Level 3.3 L Chloride Level 94 L Carbon Dioxide Level 29 Anion Gap 14 Blood Urea Nitrogen 21 H Creatinine 0.46 Glucose Level 118 Calcium Level 8.2 L Medications Medications Current Medications Ondansetron HCl (Zofran Inj) 4 mg Q6 PRN IV NAUSEA AND/OR VOMITING; Start 09/26 at 22:30 Acetaminophen (Tylenol Tab) 650 mg Q6H PRN PO PAIN AND OR ELEVATED TEMP Last administered on 10/23/16 18:08; Admin Dose 650 MG; Start 09/26/16 at 23:00 Alprazolam (Xanax) 0.5 mg Q12 PRN PO ANXIETY Last administered on 10/25/16 21: 11; Admin Dose 0.5 MG; Start 09/26/16 at 23:00 Ascorbic Acid (Vitamin C) 500 mg BID PO Last administered on 10/26/16 08:49; Admin Dose 500 MG; Start 09/27/16 at 09:00 Atorvastatin Calcium (Lipitor) 20 mg QHS PO Last administered on 10/25/16 21: 11; Admin Dose 20 MG; Start 09/27/16 at 21:00 Diazepam (Valium) 10 mg DAILY PO Last administered on 10/26/16 08:50; Admin Dose 10 MG; Start 09/27/16 at 09:00 Docusate Sodium (Colace) 100 mg Q12H PRN PO CONSTIPATION; Start 09/26/16 at 23: 00 Duloxetine HCl (Cymbalta) 20 mg DAILY PO Last administered on 10/26/16 08:49; Admin Dose 20 MG; Start 09/27/16 at 09:00 Zolpidem Tartrate (Ambien) 5 mg QHS PRN PO INSOMNIA Last administered on 02:35; Admin Dose 5 MG; Start 09/26/16 at 23:00 Collagenase (Santyl) 1 applic DAILY TOP Last administered on 10/23/16 15:00; Admin Dose 1 APPLIC; Start 09/27/16 at 09:00 Collagenase (Santyl) 1 applic PRN PRN TOP SOILED OR DISLODGED DRESSING; Start 09/27/16 at 05:00 Lansoprazole (Prevacid) 30 mg DAILY@06 GTB Last administered on 10/26/16 05:16 ; Admin Dose 30 MG; Start 09/28/16 at 06:00 Cromolyn Sodium (Nasalcrom) 1 spray QID NASAL Last administered on 10/26/16 09 :04; Admin Dose 1 SPRAY; Start 09/29/16 at 11:02 Phenol (Cepastat Lozenge) 1 lozenge Q2H PRN MT SORE THROAT Last administered on 10/02/16 12:48; Admin Dose 1 LOZENGE; Start 10/01/16 at 19:00 IV Flush (NS 10 ml) 10 ml PRN PRN IV IV PROTOCOL; Start 10/02/16 at 19:00 Lactobacillus Acidophilus (Florajen3 Capsule) 1 each TID PO Last administered on 10/26/16 13:21; Admin Dose 1 EACH; Start 10/03/16 at 21:00 Hydromorphone HCl (Dilaudid) 0.5 mg Q4H PRN IV PAIN Last administered on 11:49; Admin Dose 0.5 MG; Start 10/06/16 at 18:30 Promethazine HCl/ Codeine (Phenergan/ Codeine) 10 ml BID PRN PO COUGH; Start at 20:30 Morphine Sulfate (Ms Contin (Er)) 60 mg Q6 PO Last administered on 10/21/16 12: 28; Admin Dose 60 MG; Start 10/09/16 at 12:00; Status Future Hold Sodium Chloride (Nacl) 1 gm TID PO Last administered on 10/26/16 13:20; Admin Dose 1 GM; Start 10/16/16 at 17:00 VIKASH CASTANEDA October 26, 2016 15:24
--- NOTE | 2016-10-26 16:26 | CONS ---
Date/Time of Note Date/Time of Note DATE: 10/26/16 TIME: 16:25 Assessment/Plan Assessment/Plan Additional Assessment/Plan SIRS Intermittent hypotension Diastolic congestive heart failure, compensated Pulmonary hypertension Preserved ejection fraction Tricuspid valve regurgitation Lung cancer -Blood pressure trend remains stable, would continue to hold any antihypertensives at the current time. Maintain potassium above 4.0 and magnesium above 2.0. Will order supplementation. Consultation Date/Type/Reason Admit Date/Time Sep 26, 2016 at 20:07 Type of Consultation: cv Referring Provider: DRE LOBATO MD 24 HR Interval Summary Free Text/Dictation Denies chest pain, shortness of breath Exam/Review of Systems Vital Signs Vitals Vital Signs Date Time Temp Pulse Resp B/P Pulse Ox O2 Delivery O2 Flow Rate FiO2 10/26/16 11:05 18 96 Nasal Cannula 2.0 10/26/16 08:09 97.5 104 138/90 Intake and Output 10/25/16 10/25/16 10/26/16 15:00 23:00 07:00 Intake Total 152.8 ml 1250 ml 100 ml Output Total 1000 ml Balance 152.8 ml 250 ml 100 ml Exam No apparent distress Constitutional: alert, frail, oriented Head: normocephalic Respiratory: other (Coarse breath sounds bilaterally, no wheezing) Cardiovascular: other (S1-S2 heard), regular rate and rhythm Gastrointestinal: bowel sounds, non-tender, soft Extremities: other (No edema) Results Result Diagram: 10/25/16 0745 10/26/16 1130 Results 24 hrs Laboratory Tests Test 10/26/16 11:30 Sodium Level 134 L Potassium Level 3.3 L Chloride Level 94 L Carbon Dioxide Level 29 Anion Gap 14 Blood Urea Nitrogen 21 H Creatinine 0.46 Glucose Level 118 Calcium Level 8.2 L Medications Medications Current Medications Ondansetron HCl (Zofran Inj) 4 mg Q6 PRN IV NAUSEA AND/OR VOMITING; Start 09/26 at 22:30 Acetaminophen (Tylenol Tab) 650 mg Q6H PRN PO PAIN AND OR ELEVATED TEMP Last administered on 10/23/16 18:08; Admin Dose 650 MG; Start 09/26/16 at 23:00 Alprazolam (Xanax) 0.5 mg Q12 PRN PO ANXIETY Last administered on 10/25/16 21: 11; Admin Dose 0.5 MG; Start 09/26/16 at 23:00 Ascorbic Acid (Vitamin C) 500 mg BID PO Last administered on 10/26/16 08:49; Admin Dose 500 MG; Start 09/27/16 at 09:00 Atorvastatin Calcium (Lipitor) 20 mg QHS PO Last administered on 10/25/16 21: 11; Admin Dose 20 MG; Start 09/27/16 at 21:00 Diazepam (Valium) 10 mg DAILY PO Last administered on 10/26/16 08:50; Admin Dose 10 MG; Start 09/27/16 at 09:00 Docusate Sodium (Colace) 100 mg Q12H PRN PO CONSTIPATION; Start 09/26/16 at 23: 00 Duloxetine HCl (Cymbalta) 20 mg DAILY PO Last administered on 10/26/16 08:49; Admin Dose 20 MG; Start 09/27/16 at 09:00 Zolpidem Tartrate (Ambien) 5 mg QHS PRN PO INSOMNIA Last administered on 02:35; Admin Dose 5 MG; Start 09/26/16 at 23:00 Collagenase (Santyl) 1 applic DAILY TOP Last administered on 10/23/16 15:00; Admin Dose 1 APPLIC; Start 09/27/16 at 09:00 Collagenase (Santyl) 1 applic PRN PRN TOP SOILED OR DISLODGED DRESSING; Start 09/27/16 at 05:00 Lansoprazole (Prevacid) 30 mg DAILY@06 GTB Last administered on 10/26/16 05:16 ; Admin Dose 30 MG; Start 09/28/16 at 06:00 Cromolyn Sodium (Nasalcrom) 1 spray QID NASAL Last administered on 10/26/16 09 :04; Admin Dose 1 SPRAY; Start 09/29/16 at 11:02 Phenol (Cepastat Lozenge) 1 lozenge Q2H PRN MT SORE THROAT Last administered on 10/02/16 12:48; Admin Dose 1 LOZENGE; Start 10/01/16 at 19:00 IV Flush (NS 10 ml) 10 ml PRN PRN IV IV PROTOCOL; Start 10/02/16 at 19:00 Lactobacillus Acidophilus (Florajen3 Capsule) 1 each TID PO Last administered on 5/11/17at 13:21; Admin Dose 1 EACH; Start 10/03/16 at 21:00 Hydromorphone HCl (Dilaudid) 0.5 mg Q4H PRN IV PAIN Last administered on 15:37; Admin Dose 0.5 MG; Start 10/06/16 at 18:30 Promethazine HCl/ Codeine (Phenergan/ Codeine) 10 ml BID PRN PO COUGH; Start at 20:30 Morphine Sulfate (Ms Contin (Er)) 60 mg Q6 PO Last administered on 10/21/16 12: 28; Admin Dose 60 MG; Start 10/09/16 at 12:00; Status Future Hold Sodium Chloride (Nacl) 1 gm TID PO Last administered on 10/26/16 13:20; Admin Dose 1 GM; Start 10/16/16 at 17:00 Potassium Chloride (Potassium Chloride Pwd/Soln) 20 meq ONCE ONCE GTB ; Start 10/26/16 at 17:00; Stop 10/26/16 at 17:01 Artemio Tipton DO October 26, 2016 16:26
[2016-10-26] MEDS ORDERED: POTASSIUM CHLORIDE 20 MEQ POWDER FOR ORAL SOLN GTB ONE (17:00)
[2016-10-26] MEDS ORDERED: MAGNESIUM SULFATE 2 GM/50 ML 50 ML IVPB ONE (17:00)
[2016-10-26 20:19] VITALS: BP 117/82; RESP 20
[2016-10-26] MEDS ORDERED: POTASSIUM CHLORIDE 20 MEQ POWDER FOR ORAL SOLN PO ONE (21:00)
[2016-10-26] MEDS: ATORVASTATIN 20 MG TAB PO SCH (21:06)
[2016-10-27] MEDS: ZOLPIDEM 5 MG TAB PO PRN ×2 (00:53→21:40)
[2016-10-27] MEDS: HYDROmorphONE 1 MG/ML SYG IV PRN ×5 (02:26→20:52)
[2016-10-27 05:52] LABS: ADD SCAN DIFF NO
[2016-10-27 05:54] LABS: ABNORMAL IP MESSAGE 1; BASOPHIL # 0.1 10^3/ul (0.0-0.1); BASOPHILS % 0.6 % (0.0-2.0); EOSINOPHILS # 0.4 10^3/ul (0.0-0.5); EOSINOPHILS % 2.8 % (0.0-7.0); HEMATOCRIT 28.2 % (37.0-47.0); HEMOGLOBIN 8.8 g/dl (12.0-16.0); LYMPHOCYTES # 1.9 10^3/ul (0.8-2.9); LYMPHOCYTES % 12.5 % (15.0-51.0); MEAN CORPUSCULAR HGB CONC 31.2 g/dl (32.0-37.0); MEAN CORPUSCULAR VOLUME 83.2 fl (82.0-101.0); MEAN PLATELET VOLUME 8.6 fl (7.4-10.4); MONOCYTE # 1.7 10^3/ul (0.3-0.9); MONOCYTES % 11.2 % (0.0-11.0); NEUTROPHIL # 11.3 10^3/ul (1.6-7.5); NEUTROPHILS % 72.3 % (39.0-77.0); PLATELET COUNT 379 10^3/UL (140-415); RED BLOOD COUNT 3.39 10^6/ul (4.20-5.40); RED CELL DISTRIBUTION WIDTH 17.8 % (11.5-14.5); WHITE BLOOD COUNT 15.6 10^3/ul (4.8-10.8)
[2016-10-27] MEDS: LANSOPRAZOLE 30 MG CAP GTB SCH (06:16)
[2016-10-27] MEDS: LEVOTHYROXINE 125 MCG TAB PO SCH (06:17)
[2016-10-27 06:53] LABS: POTASSIUM 3.9 mmol/L (3.5-5.1)
[2016-10-27 06:56] LABS: CREATININE 0.49 mg/dl (0.44-1.00)
[2016-10-27 06:57] LABS: CALCIUM 8.3 mg/dl (8.4-10.2)
[2016-10-27 07:15] VITALS: BP 129/84; RESP 20
[2016-10-27] MEDS: COLLAGENASE 30 GM TUBE TOP SCH (09:00)
[2016-10-27] MEDS: ASCORBIC ACID 500 MG TAB PO SCH ×2 (09:35→21:33)
[2016-10-27] MEDS: SODIUM CHLORIDE 1 GM TAB PO SCH ×3 (09:35→21:33)
[2016-10-27] MEDS: L ACIDOPHIL/B LACTIS/B LONGUM CAPSULE PO SCH ×3 (09:35→21:33)
[2016-10-27] MEDS: DIAZEPAM 5 MG TAB PO SCH (09:35)
[2016-10-27] MEDS: DULOXETINE 20 MG CAP DR PO SCH (09:35)
[2016-10-27] MEDS: CROMOLYN 4% 26ML NAS INH NASAL SCH ×4 (09:37→21:34)
--- NOTE | 2016-10-27 11:34 | CONS ---
Date/Time of Note Date/Time of Note DATE: 10/27/16 TIME: 11:32 Assessment/Plan Assessment/Plan Additional Assessment/Plan 1. Hyponatremia, multifactorial - pt likey has Component of SAIDH causing hypoantreia, due to acute on chronic pain 2. Status post acute kidney injury on chronic kidney disease due to systemic inflammatory response syndrome. 3. Systemic inflammatory response syndrome. 4. History of recurrent polymicrobial urinary tract infections. 5. History of dementia. 6. History of previous cerebrovascular accident. 7. History of chronic obstructive pulmonary disease, recently had acute respiratory failure secondary to chronic obstructive pulmonary disease exacerbation. 8. History of urinary retention with a chronic George catheter in place. 9. Chronic debility with cachexia. 10. Multiple decubitus ulcers with a history of debridement. 11. History of degenerative joint disease of spine. 12. History of hypertension and hypertensive heart disease with mild to moderate concentric left ventricular hypertrophy and echocardiogram with diastolic dysfunction stage I. PLAN: pt likey has Component of SAIDH causing hypoantreia, due to acute on chronic pain Na improved to 133 with one dose of tolvaptan 15 mg on 10/24/16- then today is 131 continued Na Chloride tablet 1 gram PO TID mag replaced yesterday -today 2.1 will follow up Consultation Date/Type/Reason Admit Date/Time Sep 26, 2016 at 20:07 Type of Consultation: NEPHROLOGY Referring Provider: DRE LOBATO MD 24 HR Interval Summary Free Text/Dictation Na 132, WBC 15.6, C/o pain 02/25 Exam/Review of Systems Vital Signs Vitals Vital Signs Date Time Temp Pulse Resp B/P Pulse Ox O2 Delivery O2 Flow Rate FiO2 10/27/16 07:15 97.3 103 20 129/84 99 10/27/16 01:46 2.0 10/26/16 20:00 Nasal Cannula Intake and Output 10/26/16 10/26/16 10/27/16 15:00 23:00 07:00 Intake Total 1555 ml 820 ml Output Total 1400 ml 640 ml 1100 ml Balance -1400 ml 915 ml -280 ml Results Result Diagram: 10/27/16 0520 10/27/16 0520 Results 24 hrs Laboratory Tests Test 10/27/16 05:20 White Blood Count 15.6 H Red Blood Count 3.39 L Hemoglobin 8.8 L Hematocrit 28.2 L Mean Corpuscular Volume 83.2 Mean Corpuscular Hemoglobin 26.0 L Mean Corpuscular Hemoglobin Concent 31.2 L Red Cell Distribution Width 17.8 H Platelet Count 379 Mean Platelet Volume 8.6 Neutrophils % 72.3 Lymphocytes % 12.5 L Monocytes % 11.2 H Eosinophils % 2.8 Basophils % 0.6 Nucleated Red Blood Cells % 0.0 Neutrophils # 11.3 H Lymphocytes # 1.9 Monocytes # 1.7 H Eosinophils # 0.4 Basophils # 0.1 Nucleated Red Blood Cells # 0.0 Sodium Level 132 L Potassium Level 3.9 Chloride Level 95 L Carbon Dioxide Level 28 Anion Gap 13 Blood Urea Nitrogen 21 H Creatinine 0.49 Glucose Level 121 Calcium Level 8.3 L Magnesium Level 2.1 Medications Medications Current Medications Ondansetron HCl (Zofran Inj) 4 mg Q6 PRN IV NAUSEA AND/OR VOMITING; Start 09/26 at 22:30 Acetaminophen (Tylenol Tab) 650 mg Q6H PRN PO PAIN AND OR ELEVATED TEMP Last administered on 10/23/16 18:08; Admin Dose 650 MG; Start 09/26/16 at 23:00 Alprazolam (Xanax) 0.5 mg Q12 PRN PO ANXIETY Last administered on 10/25/16 21: 11; Admin Dose 0.5 MG; Start 09/26/16 at 23:00 Ascorbic Acid (Vitamin C) 500 mg BID PO Last administered on 10/27/16 09:35; Admin Dose 500 MG; Start 09/27/16 at 09:00 Atorvastatin Calcium (Lipitor) 20 mg QHS PO Last administered on 10/26/16 21: 06; Admin Dose 20 MG; Start 09/27/16 at 21:00 Diazepam (Valium) 10 mg DAILY PO Last administered on 10/27/16 09:35; Admin Dose 10 MG; Start 09/27/16 at 09:00 Docusate Sodium (Colace) 100 mg Q12H PRN PO CONSTIPATION; Start 09/26/16 at 23: 00 Duloxetine HCl (Cymbalta) 20 mg DAILY PO Last administered on 10/27/16 09:35; Admin Dose 20 MG; Start 09/27/16 at 09:00 Zolpidem Tartrate (Ambien) 5 mg QHS PRN PO INSOMNIA Last administered on 00:53; Admin Dose 5 MG; Start 09/26/16 at 23:00 Collagenase (Santyl) 1 applic DAILY TOP Last administered on 10/23/16 15:00; Admin Dose 1 APPLIC; Start 09/27/16 at 09:00 Collagenase (Santyl) 1 applic PRN PRN TOP SOILED OR DISLODGED DRESSING; Start 09/27/16 at 05:00 Lansoprazole (Prevacid) 30 mg DAILY@06 GTB Last administered on 10/27/16 06:16 ; Admin Dose 30 MG; Start 09/28/16 at 06:00 Cromolyn Sodium (Nasalcrom) 1 spray QID NASAL Last administered on 10/27/16 09 :37; Admin Dose 1 SPRAY; Start 09/29/16 at 11:02 Phenol (Cepastat Lozenge) 1 lozenge Q2H PRN MT SORE THROAT Last administered on 10/02/16 12:48; Admin Dose 1 LOZENGE; Start 10/01/16 at 19:00 IV Flush (NS 10 ml) 10 ml PRN PRN IV IV PROTOCOL; Start 10/02/16 at 19:00 Lactobacillus Acidophilus (Florajen3 Capsule) 1 each TID PO Last administered on 10/27/16 09:35; Admin Dose 1 EACH; Start 10/03/16 at 21:00 Hydromorphone HCl (Dilaudid) 0.5 mg Q4H PRN IV PAIN Last administered on 07:42; Admin Dose 0.5 MG; Start 10/06/16 at 18:30 Promethazine HCl/ Codeine (Phenergan/ Codeine) 10 ml BID PRN PO COUGH; Start at 20:30 Morphine Sulfate (Ms Contin (Er)) 60 mg Q6 PO Last administered on 10/21/16 12: 28; Admin Dose 60 MG; Start 10/09/16 at 12:00; Status Future Hold Sodium Chloride (Nacl) 1 gm TID PO Last administered on 10/27/16 09:35; Admin Dose 1 GM; Start 10/16/16 at 17:00 DIONNE SAUCEDA MD October 27, 2016 11:34
--- NOTE | 2016-10-27 12:41 | CONS ---
Date/Time of Note Date/Time of Note DATE: 10/27/16 TIME: 12:40 Assessment/Plan Assessment/Plan Additional Assessment/Plan SIRS Intermittent hypotension Diastolic congestive heart failure, compensated Pulmonary hypertension Preserved ejection fraction Tricuspid valve regurgitation Lung cancer -Blood pressure trend remains stable, would continue to hold any antihypertensives at the current time. Maintain potassium above 4.0 and magnesium above 2.0. Consultation Date/Type/Reason Admit Date/Time Sep 26, 2016 at 20:07 Type of Consultation: cv Referring Provider: DRE LOBATO MD 24 HR Interval Summary Free Text/Dictation Denies chest pain, shortness of breath. Cough is better Exam/Review of Systems Vital Signs Vitals Vital Signs Date Time Temp Pulse Resp B/P Pulse Ox O2 Delivery O2 Flow Rate FiO2 10/27/16 07:15 97.3 103 20 129/84 99 10/27/16 01:46 2.0 10/26/16 20:00 Nasal Cannula Intake and Output 10/26/16 10/26/16 10/27/16 15:00 23:00 07:00 Intake Total 1555 ml 820 ml Output Total 1400 ml 640 ml 1100 ml Balance -1400 ml 915 ml -280 ml Exam No apparent distress Constitutional: alert, frail, oriented Head: normocephalic Respiratory: other (Coarse breath sounds bilaterally, no wheezing) Cardiovascular: other (S1-S2 heard), regular rate and rhythm Gastrointestinal: bowel sounds, non-tender, soft Extremities: other (No edema) Results Result Diagram: 10/27/16 0520 10/27/16 0520 Results 24 hrs Laboratory Tests Test 10/27/16 05:20 White Blood Count 15.6 H Red Blood Count 3.39 L Hemoglobin 8.8 L Hematocrit 28.2 L Mean Corpuscular Volume 83.2 Mean Corpuscular Hemoglobin 26.0 L Mean Corpuscular Hemoglobin Concent 31.2 L Red Cell Distribution Width 17.8 H Platelet Count 379 Mean Platelet Volume 8.6 Neutrophils % 72.3 Lymphocytes % 12.5 L Monocytes % 11.2 H Eosinophils % 2.8 Basophils % 0.6 Nucleated Red Blood Cells % 0.0 Neutrophils # 11.3 H Lymphocytes # 1.9 Monocytes # 1.7 H Eosinophils # 0.4 Basophils # 0.1 Nucleated Red Blood Cells # 0.0 Sodium Level 132 L Potassium Level 3.9 Chloride Level 95 L Carbon Dioxide Level 28 Anion Gap 13 Blood Urea Nitrogen 21 H Creatinine 0.49 Glucose Level 121 Calcium Level 8.3 L Magnesium Level 2.1 Medications Medications Current Medications Ondansetron HCl (Zofran Inj) 4 mg Q6 PRN IV NAUSEA AND/OR VOMITING; Start 09/26 at 22:30 Acetaminophen (Tylenol Tab) 650 mg Q6H PRN PO PAIN AND OR ELEVATED TEMP Last administered on 10/23/16 18:08; Admin Dose 650 MG; Start 09/26/16 at 23:00 Alprazolam (Xanax) 0.5 mg Q12 PRN PO ANXIETY Last administered on 10/25/16 21: 11; Admin Dose 0.5 MG; Start 09/26/16 at 23:00 Ascorbic Acid (Vitamin C) 500 mg BID PO Last administered on 10/27/16 09:35; Admin Dose 500 MG; Start 09/27/16 at 09:00 Atorvastatin Calcium (Lipitor) 20 mg QHS PO Last administered on 10/26/16 21: 06; Admin Dose 20 MG; Start 09/27/16 at 21:00 Diazepam (Valium) 10 mg DAILY PO Last administered on 10/27/16 09:35; Admin Dose 10 MG; Start 09/27/16 at 09:00 Docusate Sodium (Colace) 100 mg Q12H PRN PO CONSTIPATION; Start 09/26/16 at 23: 00 Duloxetine HCl (Cymbalta) 20 mg DAILY PO Last administered on 10/27/16 09:35; Admin Dose 20 MG; Start 09/27/16 at 09:00 Zolpidem Tartrate (Ambien) 5 mg QHS PRN PO INSOMNIA Last administered on 00:53; Admin Dose 5 MG; Start 09/26/16 at 23:00 Collagenase (Santyl) 1 applic DAILY TOP Last administered on 10/23/16 15:00; Admin Dose 1 APPLIC; Start 09/27/16 at 09:00 Collagenase (Santyl) 1 applic PRN PRN TOP SOILED OR DISLODGED DRESSING; Start 09/27/16 at 05:00 Lansoprazole (Prevacid) 30 mg DAILY@06 GTB Last administered on 10/27/16 06:16 ; Admin Dose 30 MG; Start 09/28/16 at 06:00 Cromolyn Sodium (Nasalcrom) 1 spray QID NASAL Last administered on 10/27/16 09 :37; Admin Dose 1 SPRAY; Start 09/29/16 at 11:02 Phenol (Cepastat Lozenge) 1 lozenge Q2H PRN MT SORE THROAT Last administered on 10/02/16 12:48; Admin Dose 1 LOZENGE; Start 10/01/16 at 19:00 IV Flush (NS 10 ml) 10 ml PRN PRN IV IV PROTOCOL; Start 10/02/16 at 19:00 Lactobacillus Acidophilus (Florajen3 Capsule) 1 each TID PO Last administered on 10/27/16 09:35; Admin Dose 1 EACH; Start 10/03/16 at 21:00 Hydromorphone HCl (Dilaudid) 0.5 mg Q4H PRN IV PAIN Last administered on 11:53; Admin Dose 0.5 MG; Start 10/06/16 at 18:30 Promethazine HCl/ Codeine (Phenergan/ Codeine) 10 ml BID PRN PO COUGH; Start at 20:30 Morphine Sulfate (Ms Contin (Er)) 60 mg Q6 PO Last administered on 10/21/16 12: 28; Admin Dose 60 MG; Start 10/09/16 at 12:00; Status Future Hold Sodium Chloride (Nacl) 1 gm TID PO Last administered on 10/27/16 09:35; Admin Dose 1 GM; Start 10/16/16 at 17:00 Artemio Tipton DO October 27, 2016 12:41
--- NOTE | 2016-10-27 14:28 | CONS ---
Date/Time of Note Date/Time of Note DATE: 10/27/16 TIME: 14:27 Assessment/Plan Assessment/Plan Chief Complaint/Hosp Course SUBJECTIVE: No events overnight. No fevers. NAD INDWELLINGS: PEG, George, PICC line. PHYSICAL EXAMINATION: GENERAL: A cachectic elderly woman who is awake, in no distress. HEENT: Head atraumatic, normocephalic. Sclerae anicteric. Buccal mucosa dry. NECK: Supple. CHEST: Rise symmetrical. Breath sounds clear, diminished to bases. HEART: S1, S2. ABDOMEN: Soft, bowel sounds present. EXTREMITIES: Without cyanosis. ASSESSMENT: 1. Systemic inflammatory response syndrome with persistent leukocytosis possibly secondary to malignancy. 2. Lung cancer. 3. Cachexia. 4. Sacral decubitus with exposed bone and culture growing multidrug resistant organisms, status post debridement with wound VAC application, wound looks clean. 5. History of Clostridium difficile, pneumonia and urinary tract infection. 6. Oral thrush. PLAN: Clinically unchanged, wound cx growing MDRO consistent with colonization, pt is off abx, pending repeat MRSA swab [facility] staff Problems: Consultation Date/Type/Reason Admit Date/Time Sep 26, 2016 at 20:07 Type of Consultation: ID Referring Provider: DRE LOBATO MD Exam/Review of Systems Vital Signs Vitals Vital Signs Date Time Temp Pulse Resp B/P Pulse Ox O2 Delivery O2 Flow Rate FiO2 10/27/16 08:20 Nasal Cannula 2.0 10/27/16 07:15 97.3 103 20 129/84 99 Intake and Output 10/26/16 10/26/16 10/27/16 15:00 23:00 07:00 Intake Total 1555 ml 820 ml Output Total 1400 ml 640 ml 1100 ml Balance -1400 ml 915 ml -280 ml Results Result Diagram: 10/27/16 0520 10/27/16 0520 Results 24 hrs Laboratory Tests Test 10/27/16 05:20 White Blood Count 15.6 H Red Blood Count 3.39 L Hemoglobin 8.8 L Hematocrit 28.2 L Mean Corpuscular Volume 83.2 Mean Corpuscular Hemoglobin 26.0 L Mean Corpuscular Hemoglobin Concent 31.2 L Red Cell Distribution Width 17.8 H Platelet Count 379 Mean Platelet Volume 8.6 Neutrophils % 72.3 Lymphocytes % 12.5 L Monocytes % 11.2 H Eosinophils % 2.8 Basophils % 0.6 Nucleated Red Blood Cells % 0.0 Neutrophils # 11.3 H Lymphocytes # 1.9 Monocytes # 1.7 H Eosinophils # 0.4 Basophils # 0.1 Nucleated Red Blood Cells # 0.0 Sodium Level 132 L Potassium Level 3.9 Chloride Level 95 L Carbon Dioxide Level 28 Anion Gap 13 Blood Urea Nitrogen 21 H Creatinine 0.49 Glucose Level 121 Calcium Level 8.3 L Magnesium Level 2.1 Medications Medications Current Medications Ondansetron HCl (Zofran Inj) 4 mg Q6 PRN IV NAUSEA AND/OR VOMITING; Start 09/26 at 22:30 Acetaminophen (Tylenol Tab) 650 mg Q6H PRN PO PAIN AND OR ELEVATED TEMP Last administered on 10/23/16 18:08; Admin Dose 650 MG; Start 09/26/16 at 23:00 Alprazolam (Xanax) 0.5 mg Q12 PRN PO ANXIETY Last administered on 10/25/16 21: 11; Admin Dose 0.5 MG; Start 09/26/16 at 23:00 Ascorbic Acid (Vitamin C) 500 mg BID PO Last administered on 10/27/16 09:35; Admin Dose 500 MG; Start 09/27/16 at 09:00 Atorvastatin Calcium (Lipitor) 20 mg QHS PO Last administered on 10/26/16 21: 06; Admin Dose 20 MG; Start 09/27/16 at 21:00 Diazepam (Valium) 10 mg DAILY PO Last administered on 10/27/16 09:35; Admin Dose 10 MG; Start 09/27/16 at 09:00 Docusate Sodium (Colace) 100 mg Q12H PRN PO CONSTIPATION; Start 09/26/16 at 23: 00 Duloxetine HCl (Cymbalta) 20 mg DAILY PO Last administered on 10/27/16 09:35; Admin Dose 20 MG; Start 09/27/16 at 09:00 Zolpidem Tartrate (Ambien) 5 mg QHS PRN PO INSOMNIA Last administered on 00:53; Admin Dose 5 MG; Start 09/26/16 at 23:00 Collagenase (Santyl) 1 applic DAILY TOP Last administered on 10/23/16 15:00; Admin Dose 1 APPLIC; Start 09/27/16 at 09:00 Collagenase (Santyl) 1 applic PRN PRN TOP SOILED OR DISLODGED DRESSING; Start 09/27/16 at 05:00 Lansoprazole (Prevacid) 30 mg DAILY@06 GTB Last administered on 10/27/16 06:16 ; Admin Dose 30 MG; Start 09/28/16 at 06:00 Cromolyn Sodium (Nasalcrom) 1 spray QID NASAL Last administered on 10/27/16 12 :54; Admin Dose 1 SPRAY; Start 09/29/16 at 11:02 Phenol (Cepastat Lozenge) 1 lozenge Q2H PRN MT SORE THROAT Last administered on 10/02/16 12:48; Admin Dose 1 LOZENGE; Start 10/01/16 at 19:00 IV Flush (NS 10 ml) 10 ml PRN PRN IV IV PROTOCOL; Start 10/02/16 at 19:00 Lactobacillus Acidophilus (Florajen3 Capsule) 1 each TID PO Last administered on 10/27/16 12:54; Admin Dose 1 EACH; Start 10/03/16 at 21:00 Hydromorphone HCl (Dilaudid) 0.5 mg Q4H PRN IV PAIN Last administered on 11:53; Admin Dose 0.5 MG; Start 10/06/16 at 18:30 Promethazine HCl/ Codeine (Phenergan/ Codeine) 10 ml BID PRN PO COUGH; Start at 20:30 Morphine Sulfate (Ms Contin (Er)) 60 mg Q6 PO Last administered on 10/21/16 12: 28; Admin Dose 60 MG; Start 10/09/16 at 12:00; Status Future Hold Sodium Chloride (Nacl) 1 gm TID PO Last administered on 10/27/16 12:54; Admin Dose 1 GM; Start 10/16/16 at 17:00 RUBIN MAYEN NP October 27, 2016 14:28
--- NOTE | 2016-10-27 14:31 | PN ---
Date/Time of Note Date/Time of Note DATE: 10/26/16 TIME: 14:30 Assessment/Plan Lines/Catheters IV Catheter Type (from Nrs): PICC Line George in Place (from [facility]): Yes Assessment/Plan Chief Complaint/Hosp Course 1. Multiple decubitus ulcers with debris -Offload -Optimize nutrition -Vitamin C -Local care -Debridement sacrococcyx prn 2. UTI s/p abx 3. 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 Acute on chronic diastolic heart failure -Judicious fluid management -Cardiac optimization 5. Hypertension -Diet and medication control 6. Chronic urinary retention with George 7. Depression. -Medical management 8. Hypothyroidism by history. -Synthroid 9. Anemia of chronic disease in addition to iron deficiency anemia. -Continue iron supplements. -Transfusion when necessary 10. Chronic pain syndrome. Continue pain management. Thank you Late entry 10/26 Problems: Subjective 24 Hr Interval Summary Leukocytosis. No fevers, chills, nausea, vomiting, or abdominal pain. No abnormal vaginal discharge. No bloating. No cough, sz, bloating. No robles/dizzy/ visual or neuro changes. Exam/Review of Systems Vital Signs Vitals Vital Signs Date Time Temp Pulse Resp B/P Pulse Ox O2 Delivery O2 Flow Rate FiO2 10/27/16 08:20 Nasal Cannula 2.0 10/27/16 07:15 97.3 103 20 129/84 99 Intake and Output 10/26/16 10/26/16 10/27/16 15:00 23:00 07:00 Intake Total 1555 ml 820 ml Output Total 1400 ml 640 ml 1100 ml Balance -1400 ml 915 ml -280 ml Exam Free Text/Dictation GENERAL: Elderly, cachectic, no acute distress. HEENT: Head is atraumatic, normocephalic. Pupils equal, round, reactive to light and accommodation. Oral mucosa is pink and moist. NECK: Supple, no cervical lymphadenopathy LUNGS: Normal respiratory effort CARDIAC: S1 and S2. Irregular ABDOMEN: Flat, soft and nondistended. Nontender. No rebound or guarding. SKIN: Multiple decubitus wounds/ulcers buttock sacrum and right lower extremity EXTREMITIES: No edema. Pulses equal bilaterally, 2+. NEUROLOGICAL: Responsive VASCULAR: Refill is less than 2 seconds Results Result Diagram: 10/27/16 0520 10/27/16 0520 ZAK POSEY MD October 27, 2016 14:31
--- NOTE | 2016-10-27 14:32 | PN ---
Date/Time of Note Date/Time of Note DATE: 10/27/16 TIME: 14:31 Assessment/Plan Lines/Catheters IV Catheter Type (from Nrs): PICC Line George in Place (from Nrs): Yes Assessment/Plan Chief Complaint/Hosp Course 1. Multiple decubitus ulcers with debris -Offload -Optimize nutrition -Vitamin C -Local care -Debridement sacrococcyx prn 2. UTI s/p abx 3. 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 Acute on chronic diastolic heart failure -Judicious fluid management -Cardiac optimization 5. Hypertension -Diet and medication control 6. Chronic urinary retention with George 7. Depression. -Medical management 8. Hypothyroidism by history. -Synthroid 9. Anemia of chronic disease in addition to iron deficiency anemia. -Continue iron supplements. -Transfusion when necessary 10. Chronic pain syndrome. Continue pain management. Thank you Problems: Subjective 24 Hr Interval Summary Leukocytosis. No fevers, chills, nausea, vomiting, or abdominal pain. No abnormal vaginal discharge. No bloating. No cough, sz, bloating. No robles/dizzy/ visual or neuro changes. Exam/Review of Systems Vital Signs Vitals Vital Signs Date Time Temp Pulse Resp B/P Pulse Ox O2 Delivery O2 Flow Rate FiO2 10/27/16 08:20 Nasal Cannula 2.0 10/27/16 07:15 97.3 103 20 129/84 99 Intake and Output 10/26/16 10/26/16 10/27/16 15:00 23:00 07:00 Intake Total 1555 ml 820 ml Output Total 1400 ml 640 ml 1100 ml Balance -1400 ml 915 ml -280 ml Exam Free Text/Dictation GENERAL: Elderly, cachectic, no acute distress. HEENT: Head is atraumatic, normocephalic. Pupils equal, round, reactive to light and accommodation. Oral mucosa is pink and moist. NECK: Supple, no cervical lymphadenopathy LUNGS: Normal respiratory effort CARDIAC: S1 and S2. Irregular ABDOMEN: Flat, soft and nondistended. Nontender. No rebound or guarding. SKIN: Multiple decubitus wounds/ulcers buttock sacrum and right lower extremity EXTREMITIES: No edema. Pulses equal bilaterally, 2+. NEUROLOGICAL: Responsive VASCULAR: Refill is less than 2 seconds Results Result Diagram: 10/27/1651910/27/16519 ZAK POSEY MD October 27, 2016 14:32
--- NOTE | 2016-10-27 16:18 | OPR ---
Date/Time of Note Date/Time of Note DATE: 10/27/16 TIME: 16:14 Operative Report Procedure Date: October 27, 2016 Preoperative Diagnosis Sacrococcygeal large stage IV decubitus ulcer with devitalized tissue Postoperative Diagnosis Same, 15 x 10 cm Operation Performed 1. Excisional debridement of skin, subcutaneous, muscle, fascia, and bone. 15 x 10 cm 2. Placement of negative pressure dressing, wound VAC Surgeon: ZAK POSEY MD Estimated Blood Loss: 0 - 10 ml's Specimens None Tubes/Drains VAC dressing Complications: None Pt Condition Post Procedure: stable Disposition: other (In own room) Indications Per consult. Usual and customary risks reviewed with patient and family as per previous debridements. Procedure Description Patient was placed in lateral decubitus position. All pressure points were well- padded. Patient is already on antibiotics. Timeout was performed. She was prepped and draped in usual sterile fashion. Using curette, skin, subcutaneous, fascia, muscle, bone were excised down to healthier tissue. Hemostasis was obtained. Wound was irrigated and VAC was replaced. Patient tolerated procedure well. All counts were correct at the end of the operation 2. ZAK POSEY MD October 27, 2016 16:18
[2016-10-27] MEDS: ACETAMINOPHEN 325 MG TAB PO PRN (17:56)
--- NOTE | 2016-10-27 19:01 | PN ---
Date/Time of Note Date/Time of Note DATE: 10/27/16 TIME: 18:58 Assessment/Plan VTE Prophylaxis VTE Prophylaxis Intervention: SCD's Lines/Catheters IV Catheter Type (from [facility]): PICC Line Central line still needed: Yes Urinary Cath still in place: Yes Reason Cath still needed: urinary retention Assessment/Plan Chief Complaint/Hosp Course ASSESSMENT AND PLAN: - Recurrent sepsis, resolving. Dr. Coleman is following in infection disease consultation. Status post treatment with antibiotics. - Persistent leukocytosis secondary to multiple wounds and malignancy. - Hyponatremia, Dr. Zapata is following in nephrology consultation. - Polymicrobial urinary tract infection, s/p treatment. - Left lung squamous cell carcinoma. Patient is not a candidate for chemotherapy. - Chronic obstructive pulmonary disease. Continue breathing treatment. - Multiple decubitus ulcers with history of debridement. Continue current wound care. Wound culture is growing polymicrobial organisms. Continue antibiotics per ID. - Methicillin-resistant Staphylococcus aureus nares colonization. - Cachexia. Optimize nutrition. - Dysphagia with G-tube placement. Continue G-tube feeding. Aspiration precaution. - Chronic urinary retention. Continue George catheter. - Hypothyroidism. TSH is within normal limits. Continue Synthroid. - Anemia of chronic disease. Continue to monitor hemoglobin and hematocrit. Blood transfusion as needed. Further recommendations based on clinical course. Plan of care discussed with Dr. Dozier. Problems: Subjective 24 Hr Interval Summary Free Text/Dictation No acute events overnight, patient is status post wound debridement and application of wound VAC. Exam/Review of Systems Vital Signs Vitals Vital Signs Date Time Temp Pulse Resp B/P Pulse Ox O2 Delivery O2 Flow Rate FiO2 10/27/16 18:35 2.0 10/27/16 08:20 Nasal Cannula 10/27/16 07:15 97.3 103 20 129/84 99 Intake and Output 10/26/16 10/26/16 10/27/16 15:00 23:00 07:00 Intake Total 1555 ml 820 ml Output Total 1400 ml 640 ml 1100 ml Balance -1400 ml 915 ml -280 ml Exam Constitutional: alert, oriented Psych: no complaints Head: atraumatic, normocephalic Eyes: nl conjunctiva ENMT: nl external ears & nose Neck: non-tender, supple Respiratory: clear to auscultation, normal air movement Cardiovascular: nl pulses, regular rate and rhythm Gastrointestinal: non-tender, other (G-tube), soft Musculoskeletal: nl extremities to inspection Extremities: normal pulses 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 Results Result Diagram: 10/27/16 0520 10/27/16 0520 Results 24 hrs Laboratory Tests Test 10/27/16 05:20 White Blood Count 15.6 H Red Blood Count 3.39 L Hemoglobin 8.8 L Hematocrit 28.2 L Mean Corpuscular Volume 83.2 Mean Corpuscular Hemoglobin 26.0 L Mean Corpuscular Hemoglobin Concent 31.2 L Red Cell Distribution Width 17.8 H Platelet Count 379 Mean Platelet Volume 8.6 Neutrophils % 72.3 Lymphocytes % 12.5 L Monocytes % 11.2 H Eosinophils % 2.8 Basophils % 0.6 Nucleated Red Blood Cells % 0.0 Neutrophils # 11.3 H Lymphocytes # 1.9 Monocytes # 1.7 H Eosinophils # 0.4 Basophils # 0.1 Nucleated Red Blood Cells # 0.0 Sodium Level 132 L Potassium Level 3.9 Chloride Level 95 L Carbon Dioxide Level 28 Anion Gap 13 Blood Urea Nitrogen 21 H Creatinine 0.49 Glucose Level 121 Calcium Level 8.3 L Magnesium Level 2.1 Medications Medications Current Medications Ondansetron HCl (Zofran Inj) 4 mg Q6 PRN IV NAUSEA AND/OR VOMITING; Start 09/26 at 22:30 Acetaminophen (Tylenol Tab) 650 mg Q6H PRN PO PAIN AND OR ELEVATED TEMP Last administered on 10/27/16 17:56; Admin Dose 650 MG; Start 09/26/16 at 23:00 Alprazolam (Xanax) 0.5 mg Q12 PRN PO ANXIETY Last administered on 10/25/16 21: 11; Admin Dose 0.5 MG; Start 09/26/16 at 23:00 Ascorbic Acid (Vitamin C) 500 mg BID PO Last administered on 10/27/16 09:35; Admin Dose 500 MG; Start 09/27/16 at 09:00 Atorvastatin Calcium (Lipitor) 20 mg QHS PO Last administered on 10/26/16 21: 06; Admin Dose 20 MG; Start 09/27/16 at 21:00 Diazepam (Valium) 10 mg DAILY PO Last administered on 10/27/16 09:35; Admin Dose 10 MG; Start 09/27/16 at 09:00 Docusate Sodium (Colace) 100 mg Q12H PRN PO CONSTIPATION; Start 09/26/16 at 23: 00 Duloxetine HCl (Cymbalta) 20 mg DAILY PO Last administered on 10/27/16 09:35; Admin Dose 20 MG; Start 09/27/16 at 09:00 Zolpidem Tartrate (Ambien) 5 mg QHS PRN PO INSOMNIA Last administered on 00:53; Admin Dose 5 MG; Start 09/26/16 at 23:00 Collagenase (Santyl) 1 applic DAILY TOP Last administered on 10/23/16 15:00; Admin Dose 1 APPLIC; Start 09/27/16 at 09:00 Collagenase (Santyl) 1 applic PRN PRN TOP SOILED OR DISLODGED DRESSING; Start 09/27/16 at 05:00 Lansoprazole (Prevacid) 30 mg DAILY@06 GTB Last administered on 10/27/16 06:16 ; Admin Dose 30 MG; Start 09/28/16 at 06:00 Cromolyn Sodium (Nasalcrom) 1 spray QID NASAL Last administered on 10/27/16 12 :54; Admin Dose 1 SPRAY; Start 09/29/16 at 11:02 Phenol (Cepastat Lozenge) 1 lozenge Q2H PRN MT SORE THROAT Last administered on 10/02/16 12:48; Admin Dose 1 LOZENGE; Start 10/01/16 at 19:00 IV Flush (NS 10 ml) 10 ml PRN PRN IV IV PROTOCOL; Start 10/02/16 at 19:00 Lactobacillus Acidophilus (Florajen3 Capsule) 1 each TID PO Last administered on 10/27/16 12:54; Admin Dose 1 EACH; Start 10/03/16 at 21:00 Hydromorphone HCl (Dilaudid) 0.5 mg Q4H PRN IV PAIN Last administered on 16:00; Admin Dose 0.5 MG; Start 10/06/16 at 18:30 Promethazine HCl/ Codeine (Phenergan/ Codeine) 10 ml BID PRN PO COUGH; Start at 20:30 Morphine Sulfate (Ms Contin (Er)) 60 mg Q6 PO Last administered on 10/21/16 12: 28; Admin Dose 60 MG; Start 10/09/16 at 12:00; Status Future Hold Sodium Chloride (Nacl) 1 gm TID PO Last administered on 10/27/16 12:54; Admin Dose 1 GM; Start 10/16/16 at 17:00 REBECCA ISLAS October 27, 2016 19:00
[2016-10-27 20:33] VITALS: BP 106/76; RESP 20
[2016-10-27] MEDS: ATORVASTATIN 20 MG TAB PO SCH (21:33)
[2016-10-28] MEDS: HYDROmorphONE 1 MG/ML SYG IV PRN ×5 (01:01→23:16)
[2016-10-28] MEDS: ALBUTEROL/IPRATROPIUM (NEB) 3 ML AMP NEB PRN (05:01)
[2016-10-28 05:32] LABS: ADD SCAN DIFF NO
[2016-10-28 06:02] LABS: ABNORMAL IP MESSAGE 1; BASOPHIL # 0.1 10^3/ul (0.0-0.1); BASOPHILS % 0.6 % (0.0-2.0); EOSINOPHILS # 0.7 10^3/ul (0.0-0.5); EOSINOPHILS % 3.9 % (0.0-7.0); HEMATOCRIT 25.4 % (37.0-47.0); HEMOGLOBIN 7.8 g/dl (12.0-16.0); LYMPHOCYTES % 11.8 % (15.0-51.0); MEAN CORPUSCULAR HEMOGLOBIN 25.6 pg (29.0-33.0); MEAN CORPUSCULAR HGB CONC 30.7 g/dl (32.0-37.0); MEAN CORPUSCULAR VOLUME 83.3 fl (82.0-101.0); MEAN PLATELET VOLUME 9.1 fl (7.4-10.4); NEUTROPHIL # 12.3 10^3/ul (1.6-7.5); NEUTROPHILS % 71.3 % (39.0-77.0); PLATELET COUNT 377 10^3/UL (140-415); RED BLOOD COUNT 3.05 10^6/ul (4.20-5.40); RED CELL DISTRIBUTION WIDTH 17.9 % (11.5-14.5); WHITE BLOOD COUNT 17.2 10^3/ul (4.8-10.8)
[2016-10-28 06:07] LABS: CALCIUM 8.2 mg/dl (8.4-10.2); CREATININE 0.48 mg/dl (0.44-1.00)
[2016-10-28] MEDS: LANSOPRAZOLE 30 MG CAP GTB SCH (06:07)
[2016-10-28] MEDS: LEVOTHYROXINE 125 MCG TAB PO SCH (06:07)
[2016-10-28 06:50] LABS: MONOCYTES % 11.5 % (0.0-11.0)
[2016-10-28 07:35] VITALS: BP 106/76; RESP 18
[2016-10-28] MEDS: DIAZEPAM 5 MG TAB PO SCH (08:59)
[2016-10-28] MEDS: SODIUM CHLORIDE 1 GM TAB PO SCH ×3 (08:59→21:54)
[2016-10-28] MEDS: COLLAGENASE 30 GM TUBE TOP SCH (09:00)
[2016-10-28] MEDS: ASCORBIC ACID 500 MG TAB PO SCH ×2 (09:00→21:54)
[2016-10-28] MEDS: DULOXETINE 20 MG CAP DR PO SCH (09:00)
[2016-10-28] MEDS: CROMOLYN 4% 26ML NAS INH NASAL SCH ×4 (09:01→21:55)
[2016-10-28] MEDS: L ACIDOPHIL/B LACTIS/B LONGUM CAPSULE PO SCH ×3 (09:06→23:16)
--- NOTE | 2016-10-28 11:03 | PN ---
Date/Time of Note Date/Time of Note DATE: 10/28/16 TIME: 11:03 Assessment/Plan VTE Prophylaxis VTE Prophylaxis Intervention: SCD's Lines/Catheters IV Catheter Type (from [facility]): PICC Line Central line still needed: No Urinary Cath still in place: Yes Reason Cath still needed: urinary retention Assessment/Plan Chief Complaint/Hosp Course Patient is a 66-year-old female with anemia and cancer presents for anemia and leukocytosis. The patient was sent by Dr. Dozier from [facility] for admission. The patient said that she was "not feeling well all weekend". She was brought in by ambulance. She said that she had a fever but did not check her temperature. She has had cough and urinary symptoms as well as sore throat. The patient had peristent hypotension but no sycnope and remains stabe with no chest pain and no overt CHF Problems: Assessment/Plan SIRS Intermittent hypotension Diastolic congestive heart failure, compensated Pulmonary hypertension Preserved ejection fraction Tricuspid valve regurgitation Lung cancer -Blood pressure trend remains stable, would continue to hold any antihypertensives at the current time. Maintain potassium above 4.0 and magnesium above 2.0. Subjective 24 Hr Interval Summary Free Text/Dictation the pateitn with no cahnge Exam/Review of Systems Vital Signs Vitals Vital Signs Date Time Temp Pulse Resp B/P Pulse Ox O2 Delivery O2 Flow Rate FiO2 10/28/16 07:35 97.8 105 18 106/76 98 10/28/16 05:01 Nasal Cannula 2.0 Intake and Output 10/27/16 10/27/16 10/28/16 14:59 22:59 06:59 Intake Total 400 ml 820 ml Output Total 1000 ml 800 ml Balance -600 ml 20 ml Results Result Diagram: 10/28/16 0450 10/28/16 0450 Results 24 hrs Laboratory Tests Test 10/28/16 04:50 White Blood Count 17.2 H Red Blood Count 3.05 L Hemoglobin 7.8 L Hematocrit 25.4 L Mean Corpuscular Volume 83.3 Mean Corpuscular Hemoglobin 25.6 L Mean Corpuscular Hemoglobin Concent 30.7 L Red Cell Distribution Width 17.9 H Platelet Count 377 Mean Platelet Volume 9.1 Neutrophils % 71.3 Lymphocytes % 11.8 L Monocytes % 11.5 H Eosinophils % 3.9 Basophils % 0.6 Nucleated Red Blood Cells % 0.0 Neutrophils # 12.3 H Lymphocytes # 2.0 Monocytes # 2.0 H Eosinophils # 0.7 H Basophils # 0.1 Nucleated Red Blood Cells # 0.0 Sodium Level 131 L Potassium Level 4.0 Chloride Level 97 Carbon Dioxide Level 30 Anion Gap 8 Blood Urea Nitrogen 23 H Creatinine 0.48 Glucose Level 124 Calcium Level 8.2 L Medications Medications Current Medications Ondansetron HCl (Zofran Inj) 4 mg Q6 PRN IV NAUSEA AND/OR VOMITING; Start 09/26 at 22:30 Acetaminophen (Tylenol Tab) 650 mg Q6H PRN PO PAIN AND OR ELEVATED TEMP Last administered on 10/27/16 17:56; Admin Dose 650 MG; Start 09/26/16 at 23:00 Alprazolam (Xanax) 0.5 mg Q12 PRN PO ANXIETY Last administered on 10/25/16 21: 11; Admin Dose 0.5 MG; Start 09/26/16 at 23:00 Ascorbic Acid (Vitamin C) 500 mg BID PO Last administered on 10/28/16 09:00; Admin Dose 500 MG; Start 09/27/16 at 09:00 Atorvastatin Calcium (Lipitor) 20 mg QHS PO Last administered on 10/27/16 21: 33; Admin Dose 20 MG; Start 09/27/16 at 21:00 Diazepam (Valium) 10 mg DAILY PO Last administered on 10/28/16 08:59; Admin Dose 10 MG; Start 09/27/16 at 09:00 Docusate Sodium (Colace) 100 mg Q12H PRN PO CONSTIPATION; Start 09/26/16 at 23: 00 Duloxetine HCl (Cymbalta) 20 mg DAILY PO Last administered on 10/28/16 09:00; Admin Dose 20 MG; Start 09/27/16 at 09:00 Zolpidem Tartrate (Ambien) 5 mg QHS PRN PO INSOMNIA Last administered on 21:40; Admin Dose 5 MG; Start 09/26/16 at 23:00 Collagenase (Santyl) 1 applic DAILY TOP Last administered on 10/23/16 15:00; Admin Dose 1 APPLIC; Start 09/27/16 at 09:00 Collagenase (Santyl) 1 applic PRN PRN TOP SOILED OR DISLODGED DRESSING; Start 09/27/16 at 05:00 Lansoprazole (Prevacid) 30 mg DAILY@06 GTB Last administered on 10/28/16 06:07 ; Admin Dose 30 MG; Start 09/28/16 at 06:00 Cromolyn Sodium (Nasalcrom) 1 spray QID NASAL Last administered on 10/28/16 09 :01; Admin Dose 1 SPRAY; Start 09/29/16 at 11:02 Phenol (Cepastat Lozenge) 1 lozenge Q2H PRN MT SORE THROAT Last administered on 10/02/16 12:48; Admin Dose 1 LOZENGE; Start 10/01/16 at 19:00 IV Flush (NS 10 ml) 10 ml PRN PRN IV IV PROTOCOL; Start 10/02/16 at 19:00 Lactobacillus Acidophilus (Florajen3 Capsule) 1 each TID PO Last administered on 10/28/16 09:06; Admin Dose 1 EACH; Start 10/03/16 at 21:00 Hydromorphone HCl (Dilaudid) 0.5 mg Q4H PRN IV PAIN Last administered on 10:46; Admin Dose 0.5 MG; Start 10/06/16 at 18:30 Promethazine HCl/ Codeine (Phenergan/ Codeine) 10 ml BID PRN PO COUGH; Start at 20:30 Morphine Sulfate (Ms Contin (Er)) 60 mg Q6 PO Last administered on 10/21/16 12: 28; Admin Dose 60 MG; Start 10/09/16 at 12:00; Status Future Hold Sodium Chloride (Nacl) 1 gm TID PO Last administered on 10/28/16 08:59; Admin Dose 1 GM; Start 10/16/16 at 17:00 RALPH LUCAS MD October 28, 2016 11:03
[2016-10-28 11:07] LABS: ADD SCAN DIFF NO
[2016-10-28 11:22] LABS: ABNORMAL IP MESSAGE 1; BASOPHIL # 0.1 10^3/ul (0.0-0.1); BASOPHILS % 0.7 % (0.0-2.0); EOSINOPHILS # 0.5 10^3/ul (0.0-0.5); EOSINOPHILS % 2.9 % (0.0-7.0); HEMATOCRIT 28.5 % (37.0-47.0); HEMOGLOBIN 8.7 g/dl (12.0-16.0); LYMPHOCYTES # 1.8 10^3/ul (0.8-2.9); LYMPHOCYTES % 11.4 % (15.0-51.0); MEAN CORPUSCULAR HEMOGLOBIN 25.4 pg (29.0-33.0); MEAN CORPUSCULAR HGB CONC 30.5 g/dl (32.0-37.0); MEAN CORPUSCULAR VOLUME 83.3 fl (82.0-101.0); MEAN PLATELET VOLUME 8.3 fl (7.4-10.4); MONOCYTE # 1.7 10^3/ul (0.3-0.9); MONOCYTES % 10.7 % (0.0-11.0); NEUTROPHIL # 11.6 10^3/ul (1.6-7.5); NEUTROPHILS % 73.6 % (39.0-77.0); PLATELET COUNT 401 10^3/UL (140-415); RED BLOOD COUNT 3.42 10^6/ul (4.20-5.40); RED CELL DISTRIBUTION WIDTH 17.8 % (11.5-14.5); WHITE BLOOD COUNT 15.7 10^3/ul (4.8-10.8)
--- NOTE | 2016-10-28 11:41 | CONS ---
Date/Time of Note Date/Time of Note DATE: 10/28/16 TIME: 11:39 Assessment/Plan Assessment/Plan Additional Assessment/Plan 1. Hyponatremia, multifactorial - pt likey has Component of SAIDH causing hypoantreia, due to acute on chronic pain 2. Status post acute kidney injury on chronic kidney disease due to systemic inflammatory response syndrome. 3. Systemic inflammatory response syndrome. 4. History of recurrent polymicrobial urinary tract infections. 5. History of dementia. 6. History of previous cerebrovascular accident. 7. History of chronic obstructive pulmonary disease, recently had acute respiratory failure secondary to chronic obstructive pulmonary disease exacerbation. 8. History of urinary retention with a chronic George catheter in place. 9. Chronic debility with cachexia. 10. Multiple decubitus ulcers with a history of debridement. 11. History of degenerative joint disease of spine. 12. History of hypertension and hypertensive heart disease with mild to moderate concentric left ventricular hypertrophy and echocardiogram with diastolic dysfunction stage I. PLAN: pt likey has Component of SAIDH causing hypoantreia, due to acute on chronic pain Na improved to 133 with one dose of tolvaptan 15 mg on 10/24/16- then today is 131 continued Na Chloride tablet 1 gram PO TID monitor electrolytes will follow up Consultation Date/Type/Reason Admit Date/Time Sep 26, 2016 at 20:07 Type of Consultation: NEPHROLOGY Referring Provider: DRE LOBATO MD 24 HR Interval Summary Free Text/Dictation remains stable,Na slowly droppd down to 131 Exam/Review of Systems Vital Signs Vitals Vital Signs Date Time Temp Pulse Resp B/P Pulse Ox O2 Delivery O2 Flow Rate FiO2 10/28/16 07:35 97.8 105 18 106/76 98 10/28/16 05:01 Nasal Cannula 2.0 Intake and Output 10/27/16 10/27/16 10/28/16 15:00 23:00 07:00 Intake Total 400 ml 820 ml Output Total 1000 ml 800 ml Balance -600 ml 20 ml Exam No apparent distress Constitutional: alert, frail, oriented Head: normocephalic Respiratory: other (Coarse breath sounds bilaterally, no wheezing) Cardiovascular: other (S1-S2 heard), regular rate and rhythm Gastrointestinal: bowel sounds, non-tender, soft Extremities: other (No edema) Results Result Diagram: 10/28/16 1100 10/28/16 0450 Results 24 hrs Laboratory Tests Test 10/28/16 04:50 10/28/16 11:00 White Blood Count 17.2 H 15.7 H Red Blood Count 3.05 L 3.42 L Hemoglobin 7.8 L 8.7 L Hematocrit 25.4 L 28.5 L Mean Corpuscular Volume 83.3 83.3 Mean Corpuscular Hemoglobin 25.6 L 25.4 L Mean Corpuscular Hemoglobin Concent 30.7 L 30.5 L Red Cell Distribution Width 17.9 H 17.8 H Platelet Count 377 401 Mean Platelet Volume 9.1 8.3 Neutrophils % 71.3 73.6 Lymphocytes % 11.8 L 11.4 L Monocytes % 11.5 H 10.7 Eosinophils % 3.9 2.9 Basophils % 0.6 0.7 Nucleated Red Blood Cells % 0.0 0.0 Neutrophils # 12.3 H 11.6 H Lymphocytes # 2.0 1.8 Monocytes # 2.0 H 1.7 H Eosinophils # 0.7 H 0.5 Basophils # 0.1 0.1 Nucleated Red Blood Cells # 0.0 0.0 Sodium Level 131 L Potassium Level 4.0 Chloride Level 97 Carbon Dioxide Level 30 Anion Gap 8 Blood Urea Nitrogen 23 H Creatinine 0.48 Glucose Level 124 Calcium Level 8.2 L Medications Medications Current Medications Ondansetron HCl (Zofran Inj) 4 mg Q6 PRN IV NAUSEA AND/OR VOMITING; Start 09/26 at 22:30 Acetaminophen (Tylenol Tab) 650 mg Q6H PRN PO PAIN AND OR ELEVATED TEMP Last administered on 10/27/16 17:56; Admin Dose 650 MG; Start 09/26/16 at 23:00 Alprazolam (Xanax) 0.5 mg Q12 PRN PO ANXIETY Last administered on 10/25/16 21: 11; Admin Dose 0.5 MG; Start 09/26/16 at 23:00 Ascorbic Acid (Vitamin C) 500 mg BID PO Last administered on 10/28/16 09:00; Admin Dose 500 MG; Start 09/27/16 at 09:00 Atorvastatin Calcium (Lipitor) 20 mg QHS PO Last administered on 10/27/16 21: 33; Admin Dose 20 MG; Start 09/27/16 at 21:00 Diazepam (Valium) 10 mg DAILY PO Last administered on 10/28/16 08:59; Admin Dose 10 MG; Start 09/27/16 at 09:00 Docusate Sodium (Colace) 100 mg Q12H PRN PO CONSTIPATION; Start 09/26/16 at 23: 00 Duloxetine HCl (Cymbalta) 20 mg DAILY PO Last administered on 10/28/16 09:00; Admin Dose 20 MG; Start 09/27/16 at 09:00 Zolpidem Tartrate (Ambien) 5 mg QHS PRN PO INSOMNIA Last administered on 21:40; Admin Dose 5 MG; Start 09/26/16 at 23:00 Collagenase (Santyl) 1 applic DAILY TOP Last administered on 10/23/16 15:00; Admin Dose 1 APPLIC; Start 09/27/16 at 09:00 Collagenase (Santyl) 1 applic PRN PRN TOP SOILED OR DISLODGED DRESSING; Start 09/27/16 at 05:00 Lansoprazole (Prevacid) 30 mg DAILY@06 GTB Last administered on 10/28/16 06:07 ; Admin Dose 30 MG; Start 09/28/16 at 06:00 Cromolyn Sodium (Nasalcrom) 1 spray QID NASAL Last administered on 10/28/16 09 :01; Admin Dose 1 SPRAY; Start 09/29/16 at 11:02 Phenol (Cepastat Lozenge) 1 lozenge Q2H PRN MT SORE THROAT Last administered on 10/02/16 12:48; Admin Dose 1 LOZENGE; Start 10/01/16 at 19:00 IV Flush (NS 10 ml) 10 ml PRN PRN IV IV PROTOCOL; Start 10/02/16 at 19:00 Lactobacillus Acidophilus (Florajen3 Capsule) 1 each TID PO Last administered on 10/28/16 09:06; Admin Dose 1 EACH; Start 10/03/16 at 21:00 Hydromorphone HCl (Dilaudid) 0.5 mg Q4H PRN IV PAIN Last administered on 10:46; Admin Dose 0.5 MG; Start 10/06/16 at 18:30 Promethazine HCl/ Codeine (Phenergan/ Codeine) 10 ml BID PRN PO COUGH; Start at 20:30 Morphine Sulfate (Ms Contin (Er)) 60 mg Q6 PO Last administered on 10/21/16 12: 28; Admin Dose 60 MG; Start 10/09/16 at 12:00; Status Future Hold Sodium Chloride (Nacl) 1 gm TID PO Last administered on 10/28/16 08:59; Admin Dose 1 GM; Start 10/16/16 at 17:00 DIONNE SAUCEDA MD October 28, 2016 11:41
--- NOTE | 2016-10-28 11:52 | PN ---
Date/Time of Note Date/Time of Note DATE: 10/28/16 TIME: 11:51 Assessment/Plan VTE Prophylaxis VTE Prophylaxis Intervention: other Lines/Catheters [facility]from [facility] PICC Line Central line still needed: Yes Urinary Cath still in place: Yes Reason Cath still needed: skin wounds contaminated by urine Assessment/Plan Chief Complaint/Hosp Course - Recurrent sepsis, resolving. Dr. Coleman is following in infection disease consultation. Continue antibiotics per ID. - Polymicrobial urinary tract infection, this post treatment. - Left lung squamous cell carcinoma. Patient is not a candidate for chemotherapy. - Chronic obstructive pulmonary disease. Continue breathing treatment. - Multiple decubitus ulcers with history of debridement. Continue current wound care. Wound culture is growing polymicrobial organisms. Continue antibiotics per ID. - Methicillin-resistant Staphylococcus aureus nares colonization. - Cachexia. Optimize nutrition. - Dysphagia with G-tube placement. Continue G-tube feeding. Aspiration precaution. - Chronic urinary retention. Continue George catheter. - Hypothyroidism. TSH is within normal limits. Continue Synthroid. - Anemia of chronic disease. Undergoing blood transfusion. - Hyponatremia, Dr. Zapata is following in nephrology consultation. - Right hand swelling, pending CT scan of the right hand. Problems: Subjective 24 Hr Interval Summary Free Text/Dictation Patient has no specific complaint Exam/Review of Systems Vital Signs Vitals Vital Signs Date Time Temp Pulse Resp B/P Pulse Ox O2 Delivery O2 Flow Rate FiO2 10/28/16 07:35 97.8 105 18 106/76 98 10/28/16 05:01 Nasal Cannula 2.0 Intake and Output 10/27/16 10/27/16 10/28/16 15:00 23:00 07:00 Intake Total 400 ml 820 ml Output Total 1000 ml 800 ml Balance -600 ml 20 ml Exam Constitutional: well developed Head: atraumatic, normocephalic Neck: supple Respiratory: clear to auscultation Cardiovascular: regular rate and rhythm Gastrointestinal: soft Results Result Diagram: 10/28/16 1100 10/28/16 0450 Results 24 hrs Laboratory Tests Test 10/28/16 04:50 10/28/16 11:00 White Blood Count 17.2 H 15.7 H Red Blood Count 3.05 L 3.42 L Hemoglobin 7.8 L 8.7 L Hematocrit 25.4 L 28.5 L Mean Corpuscular Volume 83.3 83.3 Mean Corpuscular Hemoglobin 25.6 L 25.4 L Mean Corpuscular Hemoglobin Concent 30.7 L 30.5 L Red Cell Distribution Width 17.9 H 17.8 H Platelet Count 377 401 Mean Platelet Volume 9.1 8.3 Neutrophils % 71.3 73.6 Lymphocytes % 11.8 L 11.4 L Monocytes % 11.5 H 10.7 Eosinophils % 3.9 2.9 Basophils % 0.6 0.7 Nucleated Red Blood Cells % 0.0 0.0 Neutrophils # 12.3 H 11.6 H Lymphocytes # 2.0 1.8 Monocytes # 2.0 H 1.7 H Eosinophils # 0.7 H 0.5 Basophils # 0.1 0.1 Nucleated Red Blood Cells # 0.0 0.0 Sodium Level 131 L Potassium Level 4.0 Chloride Level 97 Carbon Dioxide Level 30 Anion Gap 8 Blood Urea Nitrogen 23 H Creatinine 0.48 Glucose Level 124 Calcium Level 8.2 L Medications Medications Current Medications Ondansetron HCl (Zofran Inj) 4 mg Q6 PRN IV NAUSEA AND/OR VOMITING; Start 09/26 at 22:30 Acetaminophen (Tylenol Tab) 650 mg Q6H PRN PO PAIN AND OR ELEVATED TEMP Last administered on 10/27/16 17:56; Admin Dose 650 MG; Start 09/26/16 at 23:00 Alprazolam (Xanax) 0.5 mg Q12 PRN PO ANXIETY Last administered on 10/25/16 21: 11; Admin Dose 0.5 MG; Start 09/26/16 at 23:00 Ascorbic Acid (Vitamin C) 500 mg BID PO Last administered on 10/28/16 09:00; Admin Dose 500 MG; Start 09/27/16 at 09:00 Atorvastatin Calcium (Lipitor) 20 mg QHS PO Last administered on 10/27/16 21: 33; Admin Dose 20 MG; Start 09/27/16 at 21:00 Diazepam (Valium) 10 mg DAILY PO Last administered on 10/28/16 08:59; Admin Dose 10 MG; Start 09/27/16 at 09:00 Docusate Sodium (Colace) 100 mg Q12H PRN PO CONSTIPATION; Start 09/26/16 at 23: 00 Duloxetine HCl (Cymbalta) 20 mg DAILY PO Last administered on 10/28/16 09:00; Admin Dose 20 MG; Start 09/27/16 at 09:00 Zolpidem Tartrate (Ambien) 5 mg QHS PRN PO INSOMNIA Last administered on 21:40; Admin Dose 5 MG; Start 09/26/16 at 23:00 Collagenase (Santyl) 1 applic DAILY TOP Last administered on 10/23/16 15:00; Admin Dose 1 APPLIC; Start 09/27/16 at 09:00 Collagenase (Santyl) 1 applic PRN PRN TOP SOILED OR DISLODGED DRESSING; Start 09/27/16 at 05:00 Lansoprazole (Prevacid) 30 mg DAILY@06 GTB Last administered on 10/28/16 06:07 ; Admin Dose 30 MG; Start 09/28/16 at 06:00 Cromolyn Sodium (Nasalcrom) 1 spray QID NASAL Last administered on 10/28/16 09 :01; Admin Dose 1 SPRAY; Start 09/29/16 at 11:02 Phenol (Cepastat Lozenge) 1 lozenge Q2H PRN MT SORE THROAT Last administered on 10/02/16 12:48; Admin Dose 1 LOZENGE; Start 10/01/16 at 19:00 IV Flush (NS 10 ml) 10 ml PRN PRN IV IV PROTOCOL; Start 10/02/16 at 19:00 Lactobacillus Acidophilus (Florajen3 Capsule) 1 each TID PO Last administered on 10/28/16 09:06; Admin Dose 1 EACH; Start 10/03/16 at 21:00 Hydromorphone HCl (Dilaudid) 0.5 mg Q4H PRN IV PAIN Last administered on 10:46; Admin Dose 0.5 MG; Start 10/06/16 at 18:30 Promethazine HCl/ Codeine (Phenergan/ Codeine) 10 ml BID PRN PO COUGH; Start at 20:30 Morphine Sulfate (Ms Contin (Er)) 60 mg Q6 PO Last administered on 10/21/16 12: 28; Admin Dose 60 MG; Start 10/09/16 at 12:00; Status Future Hold Sodium Chloride (Nacl) 1 gm TID PO Last administered on 10/28/16 08:59; Admin Dose 1 GM; Start 10/16/16 at 17:00 MICHAEL HOROWITZ October 28, 2016 11:52
--- NOTE | 2016-10-28 19:39 | CONS ---
Date/Time of Note Date/Time of Note DATE: 10/28/16 TIME: 19:37 Assessment/Plan Assessment/Plan Chief Complaint/Hosp Course SUBJECTIVE: No events overnight. No fevers. Awake, looks comfortable INDWELLINGS: PEG, George, PICC line. PHYSICAL EXAMINATION: GENERAL: A cachectic elderly woman who is awake, in no distress. HEENT: Head atraumatic, normocephalic. Sclerae anicteric. Buccal mucosa dry. NECK: Supple. CHEST: Rise symmetrical. Breath sounds clear, diminished to bases. HEART: S1, S2. ABDOMEN: Soft, bowel sounds present. EXTREMITIES: Without cyanosis. ASSESSMENT: 1. Systemic inflammatory response syndrome with persistent leukocytosis possibly secondary to malignancy. 2. Lung cancer. 3. Cachexia. 4. Sacral decubitus with exposed bone and culture growing multidrug resistant organisms, status post debridement with wound VAC application, wound looks clean. 5. History of Clostridium difficile, pneumonia and urinary tract infection. 6. Hx MRSA colonization==> repeat swab negative PLAN: Clinically unchanged, wound cx growing MDRO consistent with colonization, observe off abx DW staff Problems: Consultation Date/Type/Reason Admit Date/Time Sep 26, 2016 at 20:07 Type of Consultation: ID Referring Provider: DRE LOBATO MD Exam/Review of Systems Vital Signs Vitals Vital Signs Date Time Temp Pulse Resp B/P Pulse Ox O2 Delivery O2 Flow Rate FiO2 10/28/16 08:15 Nasal Cannula 2.0 10/28/16 07:35 97.8 105 18 106/76 98 Intake and Output 10/27/16 10/27/16 10/28/16 15:00 23:00 07:00 Intake Total 400 ml 820 ml Output Total 1000 ml 800 ml Balance -600 ml 20 ml Results Result Diagram: 10/28/16 1100 10/28/16 0450 Results 24 hrs Laboratory Tests Test 10/28/16 04:50 10/28/16 11:00 White Blood Count 17.2 H 15.7 H Red Blood Count 3.05 L 3.42 L Hemoglobin 7.8 L 8.7 L Hematocrit 25.4 L 28.5 L Mean Corpuscular Volume 83.3 83.3 Mean Corpuscular Hemoglobin 25.6 L 25.4 L Mean Corpuscular Hemoglobin Concent 30.7 L 30.5 L Red Cell Distribution Width 17.9 H 17.8 H Platelet Count 377 401 Mean Platelet Volume 9.1 8.3 Neutrophils % 71.3 73.6 Lymphocytes % 11.8 L 11.4 L Monocytes % 11.5 H 10.7 Eosinophils % 3.9 2.9 Basophils % 0.6 0.7 Nucleated Red Blood Cells % 0.0 0.0 Neutrophils # 12.3 H 11.6 H Lymphocytes # 2.0 1.8 Monocytes # 2.0 H 1.7 H Eosinophils # 0.7 H 0.5 Basophils # 0.1 0.1 Nucleated Red Blood Cells # 0.0 0.0 Sodium Level 131 L Potassium Level 4.0 Chloride Level 97 Carbon Dioxide Level 30 Anion Gap 8 Blood Urea Nitrogen 23 H Creatinine 0.48 Glucose Level 124 Calcium Level 8.2 L Medications Medications Current Medications Ondansetron HCl (Zofran Inj) 4 mg Q6 PRN IV NAUSEA AND/OR VOMITING; Start 09/26 at 22:30 Acetaminophen (Tylenol Tab) 650 mg Q6H PRN PO PAIN AND OR ELEVATED TEMP Last administered on 10/27/16 17:56; Admin Dose 650 MG; Start 09/26/16 at 23:00 Alprazolam (Xanax) 0.5 mg Q12 PRN PO ANXIETY Last administered on 10/25/16 21: 11; Admin Dose 0.5 MG; Start 09/26/16 at 23:00 Ascorbic Acid (Vitamin C) 500 mg BID PO Last administered on 10/28/16 09:00; Admin Dose 500 MG; Start 09/27/16 at 09:00 Atorvastatin Calcium (Lipitor) 20 mg QHS PO Last administered on 10/27/16 21: 33; Admin Dose 20 MG; Start 09/27/16 at 21:00 Diazepam (Valium) 10 mg DAILY PO Last administered on 10/28/16 08:59; Admin Dose 10 MG; Start 09/27/16 at 09:00 Docusate Sodium (Colace) 100 mg Q12H PRN PO CONSTIPATION; Start 09/26/16 at 23: 00 Duloxetine HCl (Cymbalta) 20 mg DAILY PO Last administered on 10/28/16 09:00; Admin Dose 20 MG; Start 09/27/16 at 09:00 Zolpidem Tartrate (Ambien) 5 mg QHS PRN PO INSOMNIA Last administered on 21:40; Admin Dose 5 MG; Start 09/26/16 at 23:00 Collagenase (Santyl) 1 applic DAILY TOP Last administered on 10/23/16 15:00; Admin Dose 1 APPLIC; Start 09/27/16 at 09:00 Collagenase (Santyl) 1 applic PRN PRN TOP SOILED OR DISLODGED DRESSING; Start 09/27/16 at 05:00 Lansoprazole (Prevacid) 30 mg DAILY@06 GTB Last administered on 10/28/16 06:07 ; Admin Dose 30 MG; Start 09/28/16 at 06:00 Cromolyn Sodium (Nasalcrom) 1 spray QID NASAL Last administered on 10/28/16 18 :35; Admin Dose 1 SPRAY; Start 09/29/16 at 11:02 Phenol (Cepastat Lozenge) 1 lozenge Q2H PRN MT SORE THROAT Last administered on 10/02/16 12:48; Admin Dose 1 LOZENGE; Start 10/01/16 at 19:00 IV Flush (NS 10 ml) 10 ml PRN PRN IV IV PROTOCOL; Start 10/02/16 at 19:00 Lactobacillus Acidophilus (Florajen3 Capsule) 1 each TID PO Last administered on 10/28/16 14:08; Admin Dose 1 EACH; Start 10/03/16 at 21:00 Hydromorphone HCl (Dilaudid) 0.5 mg Q4H PRN IV PAIN Last administered on 18:35; Admin Dose 0.5 MG; Start 10/06/16 at 18:30 Promethazine HCl/ Codeine (Phenergan/ Codeine) 10 ml BID PRN PO COUGH; Start at 20:30 Morphine Sulfate (Ms Contin (Er)) 60 mg Q6 PO Last administered on 10/21/16 12: 28; Admin Dose 60 MG; Start 10/09/16 at 12:00; Status Future Hold Sodium Chloride (Nacl) 1 gm TID PO Last administered on 10/28/16 14:08; Admin Dose 1 GM; Start 10/16/16 at 17:00 RUBIN MAYEN NP October 28, 2016 19:39
[2016-10-28 21:15] VITALS: BP 133/92; RESP 19
[2016-10-28] MEDS: ATORVASTATIN 20 MG TAB PO SCH (21:54)
[2016-10-28] MEDS: ZOLPIDEM 5 MG TAB PO PRN (21:56)
[2016-10-29] MEDS: HYDROmorphONE 1 MG/ML SYG IV PRN ×5 (03:37→21:11)
[2016-10-29] MEDS: LEVOTHYROXINE 125 MCG TAB PO SCH (06:10)
[2016-10-29] MEDS: LANSOPRAZOLE 30 MG CAP GTB SCH (06:10)
[2016-10-29 07:35] VITALS: BP 118/78; RESP 20
[2016-10-29] MEDS: COLLAGENASE 30 GM TUBE TOP SCH (09:00)
[2016-10-29] MEDS: ASCORBIC ACID 500 MG TAB PO SCH ×2 (10:41→21:07)
[2016-10-29] MEDS: DIAZEPAM 5 MG TAB PO SCH (10:41)
[2016-10-29] MEDS: SODIUM CHLORIDE 1 GM TAB PO SCH ×3 (10:41→21:07)
[2016-10-29] MEDS: DULOXETINE 20 MG CAP DR PO SCH (10:41)
[2016-10-29] MEDS: L ACIDOPHIL/B LACTIS/B LONGUM CAPSULE PO SCH ×3 (10:41→21:06)
[2016-10-29] MEDS: CROMOLYN 4% 26ML NAS INH NASAL SCH ×4 (10:42→21:07)
--- NOTE | 2016-10-29 12:05 | CONS ---
Date/Time of Note Date/Time of Note DATE: 10/29/16 TIME: 12:01 Consult Date/Type/Reason Admit Date/Time Sep 26, 2016 at 20:07 Initial Consult Date 10/19/16 Type of Consultation: ID Ordering Provider: DRE LOBATO MD Subjective sleeping, responsive /awakens to name, seems comfortable, remains stable,Na slowly dropped down to 131, will do am labs. dw sstaff Objective Vital Signs Date Time Temp Pulse Resp B/P Pulse Ox O2 Delivery O2 Flow Rate FiO2 10/29/16 07:35 97.9 105 20 118/78 98 10/28/16 20:00 Nasal Cannula 2.0 Intake and Output 10/28/16 10/28/16 10/29/16 15:00 23:00 07:00 Intake Total 220 ml 1500 ml Output Total 900 ml 1800 ml Balance -680 ml -300 ml Exam Constitutional: No apparent distress.alert, frail, oriented Head: normocephalic Respiratory: other (Coarse breath sounds bilaterally, no wheezing) Cardiovascular: other (S1-S2 heard), regular rate and rhythm Gastrointestinal: bowel sounds, non-tender, soft Extremities: other (No edema) Results/Medications Result Diagram: 10/28/16 1100 10/28/16 0450 Medications Current Medications Ondansetron HCl (Zofran Inj) 4 mg Q6 PRN IV NAUSEA AND/OR VOMITING; Start 09/26 at 22:30 Acetaminophen (Tylenol Tab) 650 mg Q6H PRN PO PAIN AND OR ELEVATED TEMP Last administered on 10/27/16 17:56; Admin Dose 650 MG; Start 09/26/16 at 23:00 Alprazolam (Xanax) 0.5 mg Q12 PRN PO ANXIETY Last administered on 10/25/16 21: 11; Admin Dose 0.5 MG; Start 09/26/16 at 23:00 Ascorbic Acid (Vitamin C) 500 mg BID PO Last administered on 10/29/16 10:41; Admin Dose 500 MG; Start 09/27/16 at 09:00 Atorvastatin Calcium (Lipitor) 20 mg QHS PO Last administered on 10/28/16 21: 54; Admin Dose 20 MG; Start 09/27/16 at 21:00 Diazepam (Valium) 10 mg DAILY PO Last administered on 10/29/16 10:41; Admin Dose 10 MG; Start 09/27/16 at 09:00 Docusate Sodium (Colace) 100 mg Q12H PRN PO CONSTIPATION; Start 09/26/16 at 23: 00 Duloxetine HCl (Cymbalta) 20 mg DAILY PO Last administered on 10/29/16 10:41; Admin Dose 20 MG; Start 09/27/16 at 09:00 Zolpidem Tartrate (Ambien) 5 mg QHS PRN PO INSOMNIA Last administered on 21:56; Admin Dose 5 MG; Start 09/26/16 at 23:00 Collagenase (Santyl) 1 applic DAILY TOP Last administered on 10/23/16 15:00; Admin Dose 1 APPLIC; Start 09/27/16 at 09:00 Collagenase (Santyl) 1 applic PRN PRN TOP SOILED OR DISLODGED DRESSING; Start 09/27/16 at 05:00 Lansoprazole (Prevacid) 30 mg DAILY@06 GTB Last administered on 10/29/16 06:10 ; Admin Dose 30 MG; Start 09/28/16 at 06:00 Cromolyn Sodium (Nasalcrom) 1 spray QID NASAL Last administered on 10/29/16 10 :42; Admin Dose 1 SPRAY; Start 09/29/16 at 11:02 Phenol (Cepastat Lozenge) 1 lozenge Q2H PRN MT SORE THROAT Last administered on 10/02/16 12:48; Admin Dose 1 LOZENGE; Start 10/01/16 at 19:00 IV Flush (NS 10 ml) 10 ml PRN PRN IV IV PROTOCOL; Start 10/02/16 at 19:00 Lactobacillus Acidophilus (Florajen3 Capsule) 1 each TID PO Last administered on 10/29/16 10:41; Admin Dose 1 EACH; Start 10/03/16 at 21:00 Hydromorphone HCl (Dilaudid) 0.5 mg Q4H PRN IV PAIN Last administered on 07:59; Admin Dose 0.5 MG; Start 10/06/16 at 18:30 Promethazine HCl/ Codeine (Phenergan/ Codeine) 10 ml BID PRN PO COUGH; Start at 20:30 Morphine Sulfate (Ms Contin (Er)) 60 mg Q6 PO Last administered on 10/21/16 12: 28; Admin Dose 60 MG; Start 10/09/16 at 12:00; Status Future Hold Sodium Chloride (Nacl) 1 gm TID PO Last administered on 10/29/16 10:41; Admin Dose 1 GM; Start 10/16/16 at 17:00 Assessment/Plan Additional Assessment/Plan 1. Hyponatremia, multifactorial - pt likey has Component of SAIDH causing hypoantreia, due to acute on chronic pain - per nephrology - FU AM LABS 2. Status post acute kidney injury on chronic kidney disease due to systemic inflammatory response syndrome. - per nephrology 3. Systemic inflammatory response syndrome. - per ID 4. History of recurrent polymicrobial urinary tract infections. 5. History of dementia. 6. History of previous cerebrovascular accident. 7. History of chronic obstructive pulmonary disease, recently had acute respiratory failure secondary to chronic obstructive pulmonary disease exacerbation. 8. History of urinary retention with a chronic George catheter in place. 9. Chronic debility with cachexia. 10. Multiple decubitus ulcers with a history of debridement. 11. History of degenerative joint disease of spine. 12. History of hypertension and hypertensive heart disease with mild to moderate concentric left ventricular hypertrophy and echocardiogram with diastolic dysfunction stage I. PLAN: pt likey has Component of SAIDH causing hypoantreia, due to acute on chronic pain Na improved to 133 with one dose of tolvaptan 15 mg on 10/24/16- then today is 131 continued Na Chloride tablet 1 gram PO TID monitor electrolytes will follow up Further recommendations depend upon patient's clinical course. Total time spent is 30 mins in reviewing patients chart/DW Dr Celeste Rsus;/staff/patient. VIKASH CASTANEDA October 29, 2016 12:05
--- NOTE | 2016-10-29 12:08 | PN ---
Date/Time of Note Date/Time of Note DATE: 10/29/16 TIME: 12:08 Assessment/Plan VTE Prophylaxis VTE Prophylaxis Intervention: other Lines/Catheters IV [facility]ter Type (from [facility]): PICC Line Central line still needed: Yes Urinary Cath still in place: Yes Reason Cath still needed: skin wounds contaminated by urine Assessment/Plan Chief Complaint/Hosp Course - Recurrent sepsis, resolving. Dr. Coleman is following in infection disease consultation. Continue antibiotics per ID. - Polymicrobial urinary tract infection, this post treatment. - Left lung squamous cell carcinoma. Patient is not a candidate for chemotherapy. - Chronic obstructive pulmonary disease. Continue breathing treatment. - Multiple decubitus ulcers with history of debridement. Continue current wound care. Wound culture is growing polymicrobial organisms. Continue antibiotics per ID. - Methicillin-resistant Staphylococcus aureus nares colonization. - Cachexia. Optimize nutrition. - Dysphagia with G-tube placement. Continue G-tube feeding. Aspiration precaution. - Chronic urinary retention. Continue George catheter. - Hypothyroidism. TSH is within normal limits. Continue Synthroid. - Anemia of chronic disease. Undergoing blood transfusion. - Hyponatremia, Dr. Zapata is following in nephrology consultation. - Right hand swelling, pending CT scan of the right hand. Problems: Subjective 24 Hr Interval Summary Free Text/Dictation Patient feels ok. Exam/Review of Systems Vital Signs Vitals Vital Signs Date Time Temp Pulse Resp B/P Pulse Ox O2 Delivery O2 Flow Rate FiO2 10/29/16 07:35 97.9 105 20 118/78 98 10/28/16 20:00 Nasal Cannula 2.0 Intake and Output 10/28/16 10/28/16 10/29/16 15:00 23:00 07:00 Intake Total 220 ml 1500 ml Output Total 900 ml 1800 ml Balance -680 ml -300 ml Exam Constitutional: well developed Head: atraumatic, normocephalic Neck: supple Respiratory: diminished breath sounds Cardiovascular: regular rate and rhythm Gastrointestinal: non-tender, soft Extremities: normal pulses Results Result Diagram: 10/28/16 1100 10/28/16 0450 Medications Medications Current Medications Ondansetron HCl (Zofran Inj) 4 mg Q6 PRN IV NAUSEA AND/OR VOMITING; Start 09/26 at 22:30 Acetaminophen (Tylenol Tab) 650 mg Q6H PRN PO PAIN AND OR ELEVATED TEMP Last administered on 10/27/16 17:56; Admin Dose 650 MG; Start 09/26/16 at 23:00 Alprazolam (Xanax) 0.5 mg Q12 PRN PO ANXIETY Last administered on 10/25/16 21: 11; Admin Dose 0.5 MG; Start 09/26/16 at 23:00 Ascorbic Acid (Vitamin C) 500 mg BID PO Last administered on 10/29/16 10:41; Admin Dose 500 MG; Start 09/27/16 at 09:00 Atorvastatin Calcium (Lipitor) 20 mg QHS PO Last administered on 10/28/16 21: 54; Admin Dose 20 MG; Start 09/27/16 at 21:00 Diazepam (Valium) 10 mg DAILY PO Last administered on 10/29/16 10:41; Admin Dose 10 MG; Start 09/27/16 at 09:00 Docusate Sodium (Colace) 100 mg Q12H PRN PO CONSTIPATION; Start 09/26/16 at 23: 00 Duloxetine HCl (Cymbalta) 20 mg DAILY PO Last administered on 10/29/16 10:41; Admin Dose 20 MG; Start 09/27/16 at 09:00 Zolpidem Tartrate (Ambien) 5 mg QHS PRN PO INSOMNIA Last administered on 21:56; Admin Dose 5 MG; Start 09/26/16 at 23:00 Collagenase (Santyl) 1 applic DAILY TOP Last administered on 10/23/16 15:00; Admin Dose 1 APPLIC; Start 09/27/16 at 09:00 Collagenase (Santyl) 1 applic PRN PRN TOP SOILED OR DISLODGED DRESSING; Start 09/27/16 at 05:00 Lansoprazole (Prevacid) 30 mg DAILY@06 GTB Last administered on 10/29/16 06:10 ; Admin Dose 30 MG; Start 09/28/16 at 06:00 Cromolyn Sodium (Nasalcrom) 1 spray QID NASAL Last administered on 10/29/16 10 :42; Admin Dose 1 SPRAY; Start 09/29/16 at 11:02 Phenol (Cepastat Lozenge) 1 lozenge Q2H PRN MT SORE THROAT Last administered on 10/02/16 12:48; Admin Dose 1 LOZENGE; Start 10/01/16 at 19:00 IV Flush (NS 10 ml) 10 ml PRN PRN IV IV PROTOCOL; Start 10/02/16 at 19:00 Lactobacillus Acidophilus (Florajen3 Capsule) 1 each TID PO Last administered on 10/29/16 10:41; Admin Dose 1 EACH; Start 10/03/16 at 21:00 Hydromorphone HCl (Dilaudid) 0.5 mg Q4H PRN IV PAIN Last administered on 07:59; Admin Dose 0.5 MG; Start 10/06/16 at 18:30 Promethazine HCl/ Codeine (Phenergan/ Codeine) 10 ml BID PRN PO COUGH; Start at 20:30 Morphine Sulfate (Ms Contin (Er)) 60 mg Q6 PO Last administered on 10/21/16 12: 28; Admin Dose 60 MG; Start 10/09/16 at 12:00; Status Future Hold Sodium Chloride (Nacl) 1 gm TID PO Last administered on 10/29/16 10:41; Admin Dose 1 GM; Start 10/16/16 at 17:00 MICHAEL HOROWITZ October 29, 2016 12:08
[2016-10-29] MEDS: ALPRAZOLAM 0.5 MG TAB PO PRN (14:31)
[2016-10-29] MEDS: ALBUTEROL/IPRATROPIUM (NEB) 3 ML AMP NEB PRN (15:10)
--- NOTE | 2016-10-29 16:02 | CONS ---
Date/Time of Note Date/Time of Note DATE: 10/29/16 TIME: 16:02 Assessment/Plan Assessment/Plan Chief Complaint/Hosp Course SUBJECTIVE: No events overnight. No fevers. looks comfortable INDWELLINGS: PEG, George, PICC line. PHYSICAL EXAMINATION: GENERAL: A cachectic elderly woman who is awake, in no distress. HEENT: Head atraumatic, normocephalic. Sclerae anicteric. Buccal mucosa dry. NECK: Supple. CHEST: Rise symmetrical. Breath sounds clear, diminished to bases. HEART: S1, S2. ABDOMEN: Soft, bowel sounds present. EXTREMITIES: Without cyanosis. ASSESSMENT: 1. Systemic inflammatory response syndrome with persistent leukocytosis possibly secondary to malignancy. 2. Lung cancer. 3. Cachexia. 4. Sacral decubitus with exposed bone and culture growing multidrug resistant organisms, status post debridement with wound VAC application, wound looks clean. 5. History of Clostridium difficile, pneumonia and urinary tract infection. 6. Hx MRSA colonization==> repeat swab negative PLAN: Clinically unchanged, wound cx growing MDRO consistent with colonization, observe off abx DW staff Problems: Consultation Date/Type/Reason Admit Date/Time Sep 26, 2016 at 20:07 Type of Consultation: ID Referring Provider: DRE LOBATO MD Exam/Review of Systems Vital Signs Vitals Vital Signs Date Time Temp Pulse Resp B/P Pulse Ox O2 Delivery O2 Flow Rate FiO2 10/29/16 15:10 106 20 97 Nasal Cannula 2.0 10/29/16 07:35 97.9 118/78 Intake and Output 10/28/16 10/28/16 10/29/16 15:00 23:00 07:00 Intake Total 220 ml 1500 ml Output Total 900 ml 1800 ml Balance -680 ml -300 ml Results Result Diagram: 10/28/16 1100 10/28/16 0450 Medications Medications Current Medications Ondansetron HCl (Zofran Inj) 4 mg Q6 PRN IV NAUSEA AND/OR VOMITING; Start 09/26 at 22:30 Acetaminophen (Tylenol Tab) 650 mg Q6H PRN PO PAIN AND OR ELEVATED TEMP Last administered on 10/27/16 17:56; Admin Dose 650 MG; Start 09/26/16 at 23:00 Alprazolam (Xanax) 0.5 mg Q12 PRN PO ANXIETY Last administered on 10/29/16 14: 31; Admin Dose 0.5 MG; Start 09/26/16 at 23:00 Ascorbic Acid (Vitamin C) 500 mg BID PO Last administered on 10/29/16 10:41; Admin Dose 500 MG; Start 09/27/16 at 09:00 Atorvastatin Calcium (Lipitor) 20 mg QHS PO Last administered on 10/28/16 21: 54; Admin Dose 20 MG; Start 09/27/16 at 21:00 Diazepam (Valium) 10 mg DAILY PO Last administered on 10/29/16 10:41; Admin Dose 10 MG; Start 09/27/16 at 09:00 Docusate Sodium (Colace) 100 mg Q12H PRN PO CONSTIPATION; Start 09/26/16 at 23: 00 Duloxetine HCl (Cymbalta) 20 mg DAILY PO Last administered on 10/29/16 10:41; Admin Dose 20 MG; Start 09/27/16 at 09:00 Zolpidem Tartrate (Ambien) 5 mg QHS PRN PO INSOMNIA Last administered on 21:56; Admin Dose 5 MG; Start 09/26/16 at 23:00 Collagenase (Santyl) 1 applic DAILY TOP Last administered on 10/23/16 15:00; Admin Dose 1 APPLIC; Start 09/27/16 at 09:00 Collagenase (Santyl) 1 applic PRN PRN TOP SOILED OR DISLODGED DRESSING; Start 09/27/16 at 05:00 Lansoprazole (Prevacid) 30 mg DAILY@06 GTB Last administered on 10/29/16 06:10 ; Admin Dose 30 MG; Start 09/28/16 at 06:00 Cromolyn Sodium (Nasalcrom) 1 spray QID NASAL Last administered on 10/29/16 10 :42; Admin Dose 1 SPRAY; Start 09/29/16 at 11:02 Phenol (Cepastat Lozenge) 1 lozenge Q2H PRN MT SORE THROAT Last administered on 10/02/16 12:48; Admin Dose 1 LOZENGE; Start 10/01/16 at 19:00 IV Flush (NS 10 ml) 10 ml PRN PRN IV IV PROTOCOL; Start 10/02/16 at 19:00 Lactobacillus Acidophilus (Florajen3 Capsule) 1 each TID PO Last administered on 10/29/16 13:03; Admin Dose 1 EACH; Start 10/03/16 at 21:00 Hydromorphone HCl (Dilaudid) 0.5 mg Q4H PRN IV PAIN Last administered on 12:10; Admin Dose 0.5 MG; Start 10/06/16 at 18:30 Promethazine HCl/ Codeine (Phenergan/ Codeine) 10 ml BID PRN PO COUGH; Start at 20:30 Morphine Sulfate (Ms Contin (Er)) 60 mg Q6 PO Last administered on 10/21/16 12: 28; Admin Dose 60 MG; Start 10/09/16 at 12:00; Status Future Hold Sodium Chloride (Nacl) 1 gm TID PO Last administered on 10/29/16 13:03; Admin Dose 1 GM; Start 10/16/16 at 17:00 RUBIN MAYEN NP October 29, 2016 16:02
[2016-10-29 19:58] VITALS: BP 113/81; RESP 20
[2016-10-29] MEDS: ATORVASTATIN 20 MG TAB PO SCH (21:06)
[2016-10-30] MEDS: HYDROmorphONE 1 MG/ML SYG IV PRN ×6 (01:28→20:53)
[2016-10-30 06:01] LABS: ADD SCAN DIFF NO
[2016-10-30 06:08] LABS: ABNORMAL IP MESSAGE 1; BASOPHIL # 0.1 10^3/ul (0.0-0.1); BASOPHILS % 0.7 % (0.0-2.0); EOSINOPHILS # 0.5 10^3/ul (0.0-0.5); EOSINOPHILS % 2.9 % (0.0-7.0); HEMATOCRIT 25.4 % (37.0-47.0); HEMOGLOBIN 7.8 g/dl (12.0-16.0); LYMPHOCYTES # 1.9 10^3/ul (0.8-2.9); LYMPHOCYTES % 11.9 % (15.0-51.0); MEAN CORPUSCULAR HEMOGLOBIN 25.5 pg (29.0-33.0); MEAN CORPUSCULAR HGB CONC 30.7 g/dl (32.0-37.0); MEAN PLATELET VOLUME 8.5 fl (7.4-10.4); MONOCYTE # 1.6 10^3/ul (0.3-0.9); MONOCYTES % 10.2 % (0.0-11.0); NEUTROPHIL # 11.8 10^3/ul (1.6-7.5); NEUTROPHILS % 73.6 % (39.0-77.0); PLATELET COUNT 442 10^3/UL (140-415); RED BLOOD COUNT 3.06 10^6/ul (4.20-5.40); RED CELL DISTRIBUTION WIDTH 17.8 % (11.5-14.5); WHITE BLOOD COUNT 16.1 10^3/ul (4.8-10.8)
[2016-10-30] MEDS: LEVOTHYROXINE 125 MCG TAB PO SCH (06:13)
[2016-10-30] MEDS: LANSOPRAZOLE 30 MG CAP GTB SCH (06:13)
[2016-10-30 06:32] LABS: POTASSIUM 3.3 mmol/L (3.5-5.1)
[2016-10-30 06:35] LABS: CREATININE 0.42 mg/dl (0.44-1.00)
[2016-10-30 06:36] LABS: CALCIUM 8.2 mg/dl (8.4-10.2)
[2016-10-30 07:20] VITALS: BP 114/87; RESP 18
[2016-10-30] MEDS: COLLAGENASE 30 GM TUBE TOP SCH (07:53)
[2016-10-30] MEDS: CROMOLYN 4% 26ML NAS INH NASAL SCH ×4 (09:00→20:37)
[2016-10-30] MEDS: DULOXETINE 20 MG CAP DR PO SCH (09:06)
[2016-10-30] MEDS: L ACIDOPHIL/B LACTIS/B LONGUM CAPSULE PO SCH ×3 (09:06→20:32)
[2016-10-30] MEDS: SODIUM CHLORIDE 1 GM TAB PO SCH ×3 (09:06→20:32)
[2016-10-30] MEDS: ASCORBIC ACID 500 MG TAB PO SCH ×2 (09:06→20:32)
--- NOTE | 2016-10-30 10:28 | PN ---
Date/Time of Note Date/Time of Note DATE: 10/28/16 TIME: 10:24 Assessment/Plan Lines/Catheters IV Catheter Type (from Nrs): PICC Line George in Place (from Nrs): Yes Assessment/Plan Chief Complaint/Hosp Course 1. Multiple decubitus ulcers with debris. Sacrococcygeal ulcer s/p exc boris . -Offload -Optimize nutrition -Vitamin C -Local care 2. UTI s/p abx 3. 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 Acute on chronic diastolic heart failure -Judicious fluid management -Cardiac optimization 5. Hypertension -Diet and medication control 6. Chronic urinary retention with George 7. Depression. -Medical management 8. Hypothyroidism by history. -Synthroid 9. Anemia of chronic disease in addition to iron deficiency anemia. -Continue iron supplements. -Transfusion when necessary 10. Chronic pain syndrome. Continue pain management. Thank you Late entry 10/28 Problems: Subjective 24 Hr Interval Summary s/p Excisional boris 10/27. Leukocytosis. No fevers, chills, nausea, vomiting, or abdominal pain. No abnormal vaginal discharge. No bloating. No cough, sz, bloating. No robles/dizzy/visual or neuro changes. Exam/Review of Systems Vital Signs Vitals Vital Signs Date Time Temp Pulse Resp B/P Pulse Ox O2 Delivery O2 Flow Rate FiO2 10/30/16 07:20 98.4 105 18 114/87 98 10/30/16 03:44 2.0 10/29/16 20:00 Nasal Cannula Intake and Output 10/29/16 10/29/16 10/30/16 15:00 23:00 07:00 Intake Total 1260 ml 820 ml Output Total 750 ml 900 ml Balance 510 ml -80 ml Exam Free Text/Dictation GENERAL: Elderly, cachectic, no acute distress. HEENT: Head is atraumatic, normocephalic. Pupils equal, round, reactive to light and accommodation. Oral mucosa is pink and moist. NECK: Supple, no cervical lymphadenopathy LUNGS: Normal respiratory effort CARDIAC: S1 and S2. Irregular ABDOMEN: Flat, soft and nondistended. Nontender. No rebound or guarding. SKIN: Multiple decubitus wounds/ulcers buttock sacrum and right lower extremity EXTREMITIES: No edema. Pulses equal bilaterally, 2+. NEUROLOGICAL: Responsive VASCULAR: Refill is less than 2 seconds Results Result Diagram: 10/30/16 0430 10/30/16 0538 ZAK POSEY MD October 30, 2016 10:28
--- NOTE | 2016-10-30 10:28 | PN ---
Date/Time of Note Date/Time of Note DATE: 10/29/16 TIME: 10:28 Assessment/Plan Lines/Catheters IV Catheter Type (from Nrs): PICC Line George in Place (from Nrs): Yes Assessment/Plan Chief Complaint/Hosp Course 1. Multiple decubitus ulcers with debris. Sacrococcygeal ulcer s/p exc boris . -Offload -Optimize nutrition -Vitamin C -Local care 2. UTI s/p abx 3. 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 Acute on chronic diastolic heart failure -Judicious fluid management -Cardiac optimization 5. Hypertension -Diet and medication control 6. Chronic urinary retention with George 7. Depression. -Medical management 8. Hypothyroidism by history. -Synthroid 9. Anemia of chronic disease in addition to iron deficiency anemia. -Continue iron supplements. -Transfusion when necessary 10. Chronic pain syndrome. Continue pain management. Thank you Late entry 10/29 Problems: Subjective 24 Hr Interval Summary s/p Excisional boris 10/27. Leukocytosis. No fevers, chills, nausea, vomiting, or abdominal pain. No abnormal vaginal discharge. No bloating. No cough, sz, bloating. No robles/dizzy/visual or neuro changes. Exam/Review of Systems Vital Signs Vitals Vital Signs Date Time Temp Pulse Resp B/P Pulse Ox O2 Delivery O2 Flow Rate FiO2 10/30/16 07:20 98.4 105 18 114/87 98 10/30/16 03:44 2.0 10/29/16 20:00 Nasal Cannula Intake and Output 10/29/16 10/29/16 10/30/16 15:00 23:00 07:00 Intake Total 1260 ml 820 ml Output Total 750 ml 900 ml Balance 510 ml -80 ml Exam Free Text/Dictation GENERAL: Elderly, cachectic, no acute distress. HEENT: Head is atraumatic, normocephalic. Pupils equal, round, reactive to light and accommodation. Oral mucosa is pink and moist. NECK: Supple, no cervical lymphadenopathy LUNGS: Normal respiratory effort CARDIAC: S1 and S2. Irregular ABDOMEN: Flat, soft and nondistended. Nontender. No rebound or guarding. SKIN: Multiple decubitus wounds/ulcers buttock sacrum and right lower extremity EXTREMITIES: No edema. Pulses equal bilaterally, 2+. NEUROLOGICAL: Responsive VASCULAR: Refill is less than 2 seconds Results Result Diagram: 10/30/16 0430 10/30/16 0538 ZAK POSEY MD October 30, 2016 10:28
--- NOTE | 2016-10-30 10:29 | PN ---
Date/Time of Note Date/Time of Note DATE: 10/30/16 TIME: 10:29 Assessment/Plan Lines/Catheters IV Catheter Type (from Nrs): PICC Line George in Place (from Nrs): Yes Assessment/Plan Chief Complaint/Hosp Course 1. Multiple decubitus ulcers with debris. Sacrococcygeal ulcer s/p exc boris . -Offload -Optimize nutrition -Vitamin C -Local care 2. UTI s/p abx 3. 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 Acute on chronic diastolic heart failure -Judicious fluid management -Cardiac optimization 5. Hypertension -Diet and medication control 6. Chronic urinary retention with George 7. Depression. -Medical management 8. Hypothyroidism by history. -Synthroid 9. Anemia of chronic disease in addition to iron deficiency anemia. -Continue iron supplements. -Transfusion when necessary 10. Chronic pain syndrome. Continue pain management. Thank you Problems: Subjective 24 Hr Interval Summary s/p Excisional boris 10/27. Leukocytosis. No fevers, chills, nausea, vomiting, or abdominal pain. No abnormal vaginal discharge. No bloating. No cough, sz, bloating. No robles/dizzy/visual or neuro changes. Exam/Review of Systems Vital Signs Vitals Vital Signs Date Time Temp Pulse Resp B/P Pulse Ox O2 Delivery O2 Flow Rate FiO2 10/30/16 07:20 98.4 105 18 114/87 98 10/30/16 03:44 2.0 10/29/16 20:00 Nasal Cannula Intake and Output 10/29/16 10/29/16 10/30/16 15:00 23:00 07:00 Intake Total 1260 ml 820 ml Output Total 750 ml 900 ml Balance 510 ml -80 ml Exam Free Text/Dictation GENERAL: Elderly, cachectic, no acute distress. HEENT: Head is atraumatic, normocephalic. Pupils equal, round, reactive to light and accommodation. Oral mucosa is pink and moist. NECK: Supple, no cervical lymphadenopathy LUNGS: Normal respiratory effort CARDIAC: S1 and S2. Irregular ABDOMEN: Flat, soft and nondistended. Nontender. No rebound or guarding. SKIN: Multiple decubitus wounds/ulcers buttock sacrum and right lower extremity EXTREMITIES: No edema. Pulses equal bilaterally, 2+. NEUROLOGICAL: Responsive VASCULAR: Refill is less than 2 seconds Results Result Diagram: 10/30/16 0430 10/30/16 0538 ZAK POSEY MD October 30, 2016 10:29
[2016-10-30] MEDS: POTASSIUM CHLORIDE 20 MEQ POWDER FOR ORAL SOLN GTB SCH (12:05)
[2016-10-30] MEDS: DIAZEPAM 5 MG TAB PO SCH (12:05)
--- NOTE | 2016-10-30 13:35 | CONS ---
Date/Time of Note Date/Time of Note DATE: 10/30/16 TIME: 13:34 Assessment/Plan Assessment/Plan Additional Assessment/Plan 1. Hyponatremia, multifactorial - pt likey has Component of SAIDH causing hypoantreia, due to acute on chronic pain 2. Status post acute kidney injury on chronic kidney disease due to systemic inflammatory response syndrome. 3. Systemic inflammatory response syndrome. 4. History of recurrent polymicrobial urinary tract infections. 5. History of dementia. 6. History of previous cerebrovascular accident. 7. History of chronic obstructive pulmonary disease, recently had acute respiratory failure secondary to chronic obstructive pulmonary disease exacerbation. 8. History of urinary retention with a chronic George catheter in place. 9. Chronic debility with cachexia. 10. Multiple decubitus ulcers with a history of debridement. 11. History of degenerative joint disease of spine. 12. History of hypertension and hypertensive heart disease with mild to moderate concentric left ventricular hypertrophy and echocardiogram with diastolic dysfunction stage I. PLAN: pt likey has Component of SAIDH causing hypoantreia, due to acute on chronic pain s/p one dose of tolvaptan 15 mg on 10/24/16- Na today is 132 continued Na Chloride tablet 1 gram PO TID monitor electrolytes will follow up Consultation Date/Type/Reason Admit Date/Time Sep 26, 2016 at 20:07 Type of Consultation: NEPHROLOGY Referring Provider: DRE LOBATO MD 24 HR Interval Summary Free Text/Dictation Na 132 today, BP stable Exam/Review of Systems Vital Signs Vitals Vital Signs Date Time Temp Pulse Resp B/P Pulse Ox O2 Delivery O2 Flow Rate FiO2 10/30/16 09:00 Nasal Cannula 2.0 10/30/16 07:20 98.4 105 18 114/87 98 Intake and Output 10/29/16 10/29/16 10/30/16 15:00 23:00 07:00 Intake Total 1260 ml 820 ml Output Total 750 ml 900 ml Balance 510 ml -80 ml Exam GENERAL: A cachectic elderly woman who is awake, in no distress. HEENT: Head atraumatic, normocephalic. Sclerae anicteric. Buccal mucosa dry. NECK: Supple. CHEST: Rise symmetrical. Breath sounds clear, diminished to bases. HEART: S1, S2. ABDOMEN: Soft, bowel sounds present. EXTREMITIES: Without cyanosis. Results Result Diagram: 10/30/16 0430 10/30/16 0538 Results 24 hrs Laboratory Tests Test 10/30/16 04:30 10/30/16 05:38 White Blood Count 16.1 H Red Blood Count 3.06 L Hemoglobin 7.8 L Hematocrit 25.4 L Mean Corpuscular Volume 83.0 Mean Corpuscular Hemoglobin 25.5 L Mean Corpuscular Hemoglobin Concent 30.7 L Red Cell Distribution Width 17.8 H Platelet Count 442 H Mean Platelet Volume 8.5 Neutrophils % 73.6 Lymphocytes % 11.9 L Monocytes % 10.2 Eosinophils % 2.9 Basophils % 0.7 Nucleated Red Blood Cells % 0.0 Neutrophils # 11.8 H Lymphocytes # 1.9 Monocytes # 1.6 H Eosinophils # 0.5 Basophils # 0.1 Nucleated Red Blood Cells # 0.0 Sodium Level 132 L Potassium Level 3.3 L Chloride Level 94 L Carbon Dioxide Level 28 Anion Gap 13 Blood Urea Nitrogen 19 Creatinine 0.42 L Glucose Level 129 Calcium Level 8.2 L Medications Medications Current Medications Ondansetron HCl (Zofran Inj) 4 mg Q6 PRN IV NAUSEA AND/OR VOMITING; Start 09/26 at 22:30 Acetaminophen (Tylenol Tab) 650 mg Q6H PRN PO PAIN AND OR ELEVATED TEMP Last administered on 10/27/16 17:56; Admin Dose 650 MG; Start 09/26/16 at 23:00 Alprazolam (Xanax) 0.5 mg Q12 PRN PO ANXIETY Last administered on 10/29/16 14: 31; Admin Dose 0.5 MG; Start 09/26/16 at 23:00 Ascorbic Acid (Vitamin C) 500 mg BID PO Last administered on 10/30/16 09:06; Admin Dose 500 MG; Start 09/27/16 at 09:00 Atorvastatin Calcium (Lipitor) 20 mg QHS PO Last administered on 10/29/16 21: 06; Admin Dose 20 MG; Start 09/27/16 at 21:00 Diazepam (Valium) 10 mg DAILY PO Last administered on 10/30/16 12:05; Admin Dose 10 MG; Start 09/27/16 at 09:00 Docusate Sodium (Colace) 100 mg Q12H PRN PO CONSTIPATION; Start 09/26/16 at 23: 00 Duloxetine HCl (Cymbalta) 20 mg DAILY PO Last administered on 10/30/16 09:06; Admin Dose 20 MG; Start 09/27/16 at 09:00 Zolpidem Tartrate (Ambien) 5 mg QHS PRN PO INSOMNIA Last administered on 21:56; Admin Dose 5 MG; Start 09/26/16 at 23:00 Collagenase (Santyl) 1 applic DAILY TOP Last administered on 10/23/16 15:00; Admin Dose 1 APPLIC; Start 09/27/16 at 09:00 Collagenase (Santyl) 1 applic PRN PRN TOP SOILED OR DISLODGED DRESSING; Start 09/27/16 at 05:00 Lansoprazole (Prevacid) 30 mg DAILY@06 GTB Last administered on 10/30/16 06:13 ; Admin Dose 30 MG; Start 09/28/16 at 06:00 Cromolyn Sodium (Nasalcrom) 1 spray QID NASAL Last administered on 10/29/16 21 :07; Admin Dose 1 SPRAY; Start 09/29/16 at 11:02 Phenol (Cepastat Lozenge) 1 lozenge Q2H PRN MT SORE THROAT Last administered on 10/02/16 12:48; Admin Dose 1 LOZENGE; Start 10/01/16 at 19:00 IV Flush (NS 10 ml) 10 ml PRN PRN IV IV PROTOCOL; Start 10/02/16 at 19:00 Lactobacillus Acidophilus (Florajen3 Capsule) 1 each TID PO Last administered on 10/30/16 12:05; Admin Dose 1 EACH; Start 10/03/16 at 21:00 Hydromorphone HCl (Dilaudid) 0.5 mg Q4H PRN IV PAIN Last administered on 12:56; Admin Dose 0.5 MG; Start 10/06/16 at 18:30 Promethazine HCl/ Codeine (Phenergan/ Codeine) 10 ml BID PRN PO COUGH; Start at 20:30 Morphine Sulfate (Ms Contin (Er)) 60 mg Q6 PO Last administered on 10/21/16 12: 28; Admin Dose 60 MG; Start 10/09/16 at 12:00; Status Future Hold Sodium Chloride (Nacl) 1 gm TID PO Last administered on 10/30/16 12:05; Admin Dose 1 GM; Start 10/16/16 at 17:00 Potassium Chloride (Potassium Chloride Pwd/Soln) 20 meq DAILY GTB Last administered on 10/30/16 12:05; Admin Dose 20 MEQ; Start 10/30/16 at 12:00 DIONNE SAUCEDA MD October 30, 2016 13:35
--- NOTE | 2016-10-30 13:48 | CONS ---
Date/Time of Note Date/Time of Note DATE: 10/30/16 TIME: 13:47 Assessment/Plan Assessment/Plan Chief Complaint/Hosp Course SUBJECTIVE: No events overnight. No fevers. looks comfortable INDWELLINGS: PEG, George, PICC line. PHYSICAL EXAMINATION: GENERAL: A cachectic elderly woman who is awake, in no distress. HEENT: Head atraumatic, normocephalic. Sclerae anicteric. Buccal mucosa dry. NECK: Supple. CHEST: Rise symmetrical. Breath sounds clear, diminished to bases. HEART: S1, S2. ABDOMEN: Soft, bowel sounds present. EXTREMITIES: Without cyanosis. ASSESSMENT: 1. Systemic inflammatory response syndrome with persistent leukocytosis possibly secondary to malignancy. 2. Lung cancer. 3. Cachexia. 4. Sacral decubitus with exposed bone and culture growing multidrug resistant organisms, status post debridement with wound VAC application, wound looks clean per dw Dr Sinclair. 5. History of Clostridium difficile, pneumonia and urinary tract infection. 6. Hx MRSA colonization==> repeat swab negative PLAN: Clinically unchanged, wound cx growing MDRO consistent with colonization, observe off abx DW staff Problems: Consultation Date/Type/Reason Admit Date/Time Sep 26, 2016 at 20:07 Type of Consultation: ID Referring Provider: DRE LOBATO MD Exam/Review of Systems Vital Signs Vitals Vital Signs Date Time Temp Pulse Resp B/P Pulse Ox O2 Delivery O2 Flow Rate FiO2 10/30/16 09:00 Nasal Cannula 2.0 10/30/16 07:20 98.4 105 18 114/87 98 Intake and Output 10/29/16 10/29/16 10/30/16 15:00 23:00 07:00 Intake Total 1260 ml 820 ml Output Total 750 ml 900 ml Balance 510 ml -80 ml Results Result Diagram: 10/30/16 0430 10/30/16 0538 Results 24 hrs Laboratory Tests Test 10/30/16 04:30 10/30/16 05:38 White Blood Count 16.1 H Red Blood Count 3.06 L Hemoglobin 7.8 L Hematocrit 25.4 L Mean Corpuscular Volume 83.0 Mean Corpuscular Hemoglobin 25.5 L Mean Corpuscular Hemoglobin Concent 30.7 L Red Cell Distribution Width 17.8 H Platelet Count 442 H Mean Platelet Volume 8.5 Neutrophils % 73.6 Lymphocytes % 11.9 L Monocytes % 10.2 Eosinophils % 2.9 Basophils % 0.7 Nucleated Red Blood Cells % 0.0 Neutrophils # 11.8 H Lymphocytes # 1.9 Monocytes # 1.6 H Eosinophils # 0.5 Basophils # 0.1 Nucleated Red Blood Cells # 0.0 Sodium Level 132 L Potassium Level 3.3 L Chloride Level 94 L Carbon Dioxide Level 28 Anion Gap 13 Blood Urea Nitrogen 19 Creatinine 0.42 L Glucose Level 129 Calcium Level 8.2 L Medications Medications Current Medications Ondansetron HCl (Zofran Inj) 4 mg Q6 PRN IV NAUSEA AND/OR VOMITING; Start 09/26 at 22:30 Acetaminophen (Tylenol Tab) 650 mg Q6H PRN PO PAIN AND OR ELEVATED TEMP Last administered on 10/27/16 17:56; Admin Dose 650 MG; Start 09/26/16 at 23:00 Alprazolam (Xanax) 0.5 mg Q12 PRN PO ANXIETY Last administered on 10/29/16 14: 31; Admin Dose 0.5 MG; Start 09/26/16 at 23:00 Ascorbic Acid (Vitamin C) 500 mg BID PO Last administered on 10/30/16 09:06; Admin Dose 500 MG; Start 09/27/16 at 09:00 Atorvastatin Calcium (Lipitor) 20 mg QHS PO Last administered on 10/29/16 21: 06; Admin Dose 20 MG; Start 09/27/16 at 21:00 Diazepam (Valium) 10 mg DAILY PO Last administered on 10/30/16 12:05; Admin Dose 10 MG; Start 09/27/16 at 09:00 Docusate Sodium (Colace) 100 mg Q12H PRN PO CONSTIPATION; Start 09/26/16 at 23: 00 Duloxetine HCl (Cymbalta) 20 mg DAILY PO Last administered on 10/30/16 09:06; Admin Dose 20 MG; Start 09/27/16 at 09:00 Zolpidem Tartrate (Ambien) 5 mg QHS PRN PO INSOMNIA Last administered on 21:56; Admin Dose 5 MG; Start 09/26/16 at 23:00 Collagenase (Santyl) 1 applic DAILY TOP Last administered on 10/23/16 15:00; Admin Dose 1 APPLIC; Start 09/27/16 at 09:00 Collagenase (Santyl) 1 applic PRN PRN TOP SOILED OR DISLODGED DRESSING; Start 09/27/16 at 05:00 Lansoprazole (Prevacid) 30 mg DAILY@06 GTB Last administered on 10/30/16 06:13 ; Admin Dose 30 MG; Start 09/28/16 at 06:00 Cromolyn Sodium (Nasalcrom) 1 spray QID NASAL Last administered on 10/29/16 21 :07; Admin Dose 1 SPRAY; Start 09/29/16 at 11:02 Phenol (Cepastat Lozenge) 1 lozenge Q2H PRN MT SORE THROAT Last administered on 10/02/16 12:48; Admin Dose 1 LOZENGE; Start 10/01/16 at 19:00 IV Flush (NS 10 ml) 10 ml PRN PRN IV IV PROTOCOL; Start 10/02/16 at 19:00 Lactobacillus Acidophilus (Florajen3 Capsule) 1 each TID PO Last administered on 10/30/16 12:05; Admin Dose 1 EACH; Start 10/03/16 at 21:00 Hydromorphone HCl (Dilaudid) 0.5 mg Q4H PRN IV PAIN Last administered on 12:56; Admin Dose 0.5 MG; Start 10/06/16 at 18:30 Promethazine HCl/ Codeine (Phenergan/ Codeine) 10 ml BID PRN PO COUGH; Start at 20:30 Morphine Sulfate (Ms Contin (Er)) 60 mg Q6 PO Last administered on 10/21/16 12: 28; Admin Dose 60 MG; Start 10/09/16 at 12:00; Status Future Hold Sodium Chloride (Nacl) 1 gm TID PO Last administered on 10/30/16 12:05; Admin Dose 1 GM; Start 10/16/16 at 17:00 Potassium Chloride (Potassium Chloride Pwd/Soln) 20 meq DAILY GTB Last administered on 10/30/16 12:05; Admin Dose 20 MEQ; Start 10/30/16 at 12:00 RUBIN MAYEN NP October 30, 2016 13:48
--- NOTE | 2016-10-30 16:19 | PN ---
Date/Time of Note Date/Time of Note DATE: 10/30/16 TIME: 16:16 Assessment/Plan VTE Prophylaxis VTE Prophylaxis Intervention: SCD's Lines/Catheters IV C[facility] Type [facility] PICC Line Central line still needed: Yes Urinary Cath still in place: Yes Reason Cath still needed: urinary retention Assessment/Plan Chief Complaint/Hosp Course ASSESSMENT AND PLAN: - Recurrent sepsis, resolving. Dr. Coleman is following in infection disease consultation. Status post treatment with antibiotics. - Persistent leukocytosis secondary to multiple wounds and malignancy. - Hyponatremia, Dr. Zapata is following in nephrology consultation. - Polymicrobial urinary tract infection, s/p treatment. - Left lung squamous cell carcinoma. Patient is not a candidate for chemotherapy. - Chronic obstructive pulmonary disease. Continue breathing treatment. - Multiple decubitus ulcers with history of debridement. Status post sacrococcygeal wound debridement on 10/[address] Sinclair, general surgery. continue current wound care, wound VAC. - Methicillin-resistant Staphylococcus aureus nares colonization. - Cachexia. Optimize nutrition. - Dysphagia with G-tube placement. Continue G-tube feeding. Aspiration precaution. - Chronic urinary retention. Continue George catheter. - Hypothyroidism. TSH is within normal limits. Continue Synthroid. - Anemia of chronic disease. Continue to monitor hemoglobin and hematocrit. Blood transfusion as needed. Further recommendations based on clinical course. Plan of care discussed with Dr. Dozier. Problems: Subjective 24 Hr Interval Summary Free Text/Dictation Patient is undergoing blood transfusion for hemoglobin 7.8 today, patient refused wound VAC change today, continue current wound care. Exam/Review of Systems Vital Signs Vitals Vital Signs Date Time Temp Pulse Resp B/P Pulse Ox O2 Delivery O2 Flow Rate FiO2 10/30/16 09:00 Nasal Cannula 2.0 10/30/16 07:20 98.4 105 18 114/87 98 Intake and Output 10/29/16 10/29/16 10/30/16 15:00 23:00 07:00 Intake Total 1260 ml 820 ml Output Total 750 ml 900 ml Balance 510 ml -80 ml Exam Constitutional: alert, oriented Psych: no complaints Head: atraumatic, normocephalic Eyes: nl conjunctiva ENMT: nl external ears & nose Neck: non-tender, supple Respiratory: clear to auscultation, normal air movement Cardiovascular: nl pulses, regular rate and rhythm Gastrointestinal: non-tender, other (G-tube), soft Musculoskeletal: nl extremities to inspection Extremities: normal pulses 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 Results Result Diagram: 10/30/16 0430 10/30/16 0538 Results 24 hrs Laboratory Tests Test 10/30/16 04:30 10/30/16 05:38 White Blood Count 16.1 H Red Blood Count 3.06 L Hemoglobin 7.8 L Hematocrit 25.4 L Mean Corpuscular Volume 83.0 Mean Corpuscular Hemoglobin 25.5 L Mean Corpuscular Hemoglobin Concent 30.7 L Red Cell Distribution Width 17.8 H Platelet Count 442 H Mean Platelet Volume 8.5 Neutrophils % 73.6 Lymphocytes % 11.9 L Monocytes % 10.2 Eosinophils % 2.9 Basophils % 0.7 Nucleated Red Blood Cells % 0.0 Neutrophils # 11.8 H Lymphocytes # 1.9 Monocytes # 1.6 H Eosinophils # 0.5 Basophils # 0.1 Nucleated Red Blood Cells # 0.0 Sodium Level 132 L Potassium Level 3.3 L Chloride Level 94 L Carbon Dioxide Level 28 Anion Gap 13 Blood Urea Nitrogen 19 Creatinine 0.42 L Glucose Level 129 Calcium Level 8.2 L Medications Medications Current Medications Ondansetron HCl (Zofran Inj) 4 mg Q6 PRN IV NAUSEA AND/OR VOMITING; Start 09/26 at 22:30 Acetaminophen (Tylenol Tab) 650 mg Q6H PRN PO PAIN AND OR ELEVATED TEMP Last administered on 10/27/16 17:56; Admin Dose 650 MG; Start 09/26/16 at 23:00 Alprazolam (Xanax) 0.5 mg Q12 PRN PO ANXIETY Last administered on 10/29/16 14: 31; Admin Dose 0.5 MG; Start 09/26/16 at 23:00 Ascorbic Acid (Vitamin C) 500 mg BID PO Last administered on 10/30/16 09:06; Admin Dose 500 MG; Start 09/27/16 at 09:00 Atorvastatin Calcium (Lipitor) 20 mg QHS PO Last administered on 10/29/16 21: 06; Admin Dose 20 MG; Start 09/27/16 at 21:00 Diazepam (Valium) 10 mg DAILY PO Last administered on 10/30/16 12:05; Admin Dose 10 MG; Start 09/27/16 at 09:00 Docusate Sodium (Colace) 100 mg Q12H PRN PO CONSTIPATION; Start 09/26/16 at 23: 00 Duloxetine HCl (Cymbalta) 20 mg DAILY PO Last administered on 10/30/16 09:06; Admin Dose 20 MG; Start 09/27/16 at 09:00 Zolpidem Tartrate (Ambien) 5 mg QHS PRN PO INSOMNIA Last administered on 21:56; Admin Dose 5 MG; Start 09/26/16 at 23:00 Collagenase (Santyl) 1 applic DAILY TOP Last administered on 10/23/16 15:00; Admin Dose 1 APPLIC; Start 09/27/16 at 09:00 Collagenase (Santyl) 1 applic PRN PRN TOP SOILED OR DISLODGED DRESSING; Start 09/27/16 at 05:00 Lansoprazole (Prevacid) 30 mg DAILY@06 GTB Last administered on 10/30/16 06:13 ; Admin Dose 30 MG; Start 09/28/16 at 06:00 Cromolyn Sodium (Nasalcrom) 1 spray QID NASAL Last administered on 10/29/16 21 :07; Admin Dose 1 SPRAY; Start 09/29/16 at 11:02 Phenol (Cepastat Lozenge) 1 lozenge Q2H PRN MT SORE THROAT Last administered on 10/02/16 12:48; Admin Dose 1 LOZENGE; Start 10/01/16 at 19:00 IV Flush (NS 10 ml) 10 ml PRN PRN IV IV PROTOCOL; Start 10/02/16 at 19:00 Lactobacillus Acidophilus (Florajen3 Capsule) 1 each TID PO Last administered on 10/30/16 12:05; Admin Dose 1 EACH; Start 10/03/16 at 21:00 Hydromorphone HCl (Dilaudid) 0.5 mg Q4H PRN IV PAIN Last administered on 12:56; Admin Dose 0.5 MG; Start 10/06/16 at 18:30 Promethazine HCl/ Codeine (Phenergan/ Codeine) 10 ml BID PRN PO COUGH; Start at 20:30 Morphine Sulfate (Ms Contin (Er)) 60 mg Q6 PO Last administered on 10/21/16 12: 28; Admin Dose 60 MG; Start 10/09/16 at 12:00; Status Future Hold Sodium Chloride (Nacl) 1 gm TID PO Last administered on 10/30/16 12:05; Admin Dose 1 GM; Start 10/16/16 at 17:00 Potassium Chloride (Potassium Chloride Pwd/Soln) 20 meq DAILY GTB Last administered on 10/30/16 12:05; Admin Dose 20 MEQ; Start 10/30/16 at 12:00 REBECCA ISLAS October 30, 2016 16:19
[2016-10-30] MEDS: ATORVASTATIN 20 MG TAB PO SCH (20:32)
[2016-10-30 20:41] VITALS: BP 120/80; RESP 18
[2016-10-30] MEDS: PROMETHAZINE/CODEINE 5ML CUP PO PRN (20:53)
[2016-10-31] MEDS: HYDROmorphONE 1 MG/ML SYG IV PRN ×5 (01:34→21:50)
[2016-10-31] MEDS: ZOLPIDEM 5 MG TAB PO PRN (01:41)
[2016-10-31] MEDS: LEVOTHYROXINE 125 MCG TAB PO SCH (06:01)
[2016-10-31] MEDS: LANSOPRAZOLE 30 MG CAP GTB SCH (06:01)
[2016-10-31 06:10] LABS: ABNORMAL IP MESSAGE 1; ADD SCAN DIFF NO; BASOPHIL # 0.1 10^3/ul (0.0-0.1); BASOPHILS % 0.6 % (0.0-2.0); EOSINOPHILS # 0.6 10^3/ul (0.0-0.5); EOSINOPHILS % 3.4 % (0.0-7.0); HEMATOCRIT 30.2 % (37.0-47.0); HEMOGLOBIN 9.2 g/dl (12.0-16.0); LYMPHOCYTES # 2.2 10^3/ul (0.8-2.9); LYMPHOCYTES % 12.5 % (15.0-51.0); MEAN CORPUSCULAR HEMOGLOBIN 25.6 pg (29.0-33.0); MEAN CORPUSCULAR HGB CONC 30.5 g/dl (32.0-37.0); MEAN CORPUSCULAR VOLUME 84.1 fl (82.0-101.0); MEAN PLATELET VOLUME 9.1 fl (7.4-10.4); MONOCYTE # 1.7 10^3/ul (0.3-0.9); MONOCYTES % 9.7 % (0.0-11.0); NEUTROPHIL # 12.9 10^3/ul (1.6-7.5); NEUTROPHILS % 73.2 % (39.0-77.0); PLATELET COUNT 429 10^3/UL (140-415); RED BLOOD COUNT 3.59 10^6/ul (4.20-5.40); RED CELL DISTRIBUTION WIDTH 17.2 % (11.5-14.5); WHITE BLOOD COUNT 17.7 10^3/ul (4.8-10.8)
[2016-10-31 06:17] LABS: POTASSIUM 3.5 mmol/L (3.5-5.1)
[2016-10-31 06:19] LABS: CREATININE 0.45 mg/dl (0.44-1.00)
[2016-10-31 06:20] LABS: CALCIUM 8.6 mg/dl (8.4-10.2)
[2016-10-31 07:49] VITALS: BP 115/82; RESP 18
[2016-10-31] MEDS: SODIUM CHLORIDE 1 GM TAB PO SCH ×3 (08:14→20:49)
[2016-10-31] MEDS: L ACIDOPHIL/B LACTIS/B LONGUM CAPSULE PO SCH ×3 (08:14→20:49)
[2016-10-31] MEDS: DIAZEPAM 5 MG TAB PO SCH (08:15)
[2016-10-31] MEDS: ASCORBIC ACID 500 MG TAB PO SCH ×2 (08:15→20:49)
[2016-10-31] MEDS: POTASSIUM CHLORIDE 20 MEQ POWDER FOR ORAL SOLN GTB SCH (08:15)
[2016-10-31] MEDS: DULOXETINE 20 MG CAP DR PO SCH (08:15)
[2016-10-31] MEDS: COLLAGENASE 30 GM TUBE TOP SCH (08:16)
[2016-10-31] MEDS: CROMOLYN 4% 26ML NAS INH NASAL SCH ×4 (08:16→20:50)
--- NOTE | 2016-10-31 12:53 | CONS ---
Date/Time of Note Date/Time of Note DATE: 10/31/16 TIME: 12:51 Assessment/Plan Assessment/Plan Additional Assessment/Plan 1. Hyponatremia, multifactorial - pt likey has Component of SAIDH causing hypoantreia, due to acute on chronic pain 2. Status post acute kidney injury on chronic kidney disease due to systemic inflammatory response syndrome. 3. Systemic inflammatory response syndrome. 4. History of recurrent polymicrobial urinary tract infections. 5. History of dementia. 6. History of previous cerebrovascular accident. 7. History of chronic obstructive pulmonary disease, recently had acute respiratory failure secondary to chronic obstructive pulmonary disease exacerbation. 8. History of urinary retention with a chronic George catheter in place. 9. Chronic debility with cachexia. 10. Multiple decubitus ulcers with a history of debridement. 11. History of degenerative joint disease of spine. 12. History of hypertension and hypertensive heart disease with mild to moderate concentric left ventricular hypertrophy and echocardiogram with diastolic dysfunction stage I. PLAN: pt likey has Component of SAIDH causing hypoantreia, due to acute on chronic pain s/p one dose of tolvaptan 15 mg on 10/24/16- Na today is normal continued Na Chloride tablet 1 gram PO TID monitor electrolytes will follow up Consultation Date/Type/Reason Admit Date/Time Sep 26, 2016 at 20:07 Type of Consultation: NEPHROLOGY Referring Provider: DRE LOBATO MD 24 HR Interval Summary Free Text/Dictation Na 135 today, cr normal, BP stable Exam/Review of Systems Vital Signs Vitals Vital Signs Date Time Temp Pulse Resp B/P Pulse Ox O2 Delivery O2 Flow Rate FiO2 10/31/16 07:49 98.4 115 18 115/82 97 10/31/16 00:30 2.0 10/30/16 20:30 Nasal Cannula Intake and Output 10/30/16 10/30/16 10/31/16 15:00 23:00 07:00 Intake Total 1490 ml 1020 ml Output Total 900 ml 750 ml Balance 590 ml 270 ml Exam GENERAL: A cachectic elderly woman who is awake, in no distress. HEENT: Head atraumatic, normocephalic. Sclerae anicteric. Buccal mucosa dry. NECK: Supple. CHEST: Rise symmetrical. Breath sounds clear, diminished to bases. HEART: S1, S2. ABDOMEN: Soft, bowel sounds present. EXTREMITIES: Without cyanosis. Results Result Diagram: 10/31/16 0500 10/31/16 0500 Results 24 hrs Laboratory Tests Test 10/31/16 05:00 White Blood Count 17.7 H Red Blood Count 3.59 L Hemoglobin 9.2 L Hematocrit 30.2 L Mean Corpuscular Volume 84.1 Mean Corpuscular Hemoglobin 25.6 L Mean Corpuscular Hemoglobin Concent 30.5 L Red Cell Distribution Width 17.2 H Platelet Count 429 H Mean Platelet Volume 9.1 Neutrophils % 73.2 Lymphocytes % 12.5 L Monocytes % 9.7 Eosinophils % 3.4 Basophils % 0.6 Nucleated Red Blood Cells % 0.0 Neutrophils # 12.9 H Lymphocytes # 2.2 Monocytes # 1.7 H Eosinophils # 0.6 H Basophils # 0.1 Nucleated Red Blood Cells # 0.0 Sodium Level 135 Potassium Level 3.5 Chloride Level 96 L Carbon Dioxide Level 28 Anion Gap 15 Blood Urea Nitrogen 21 H Creatinine 0.45 Glucose Level 133 Calcium Level 8.6 Medications Medications Current Medications Ondansetron HCl (Zofran Inj) 4 mg Q6 PRN IV NAUSEA AND/OR VOMITING; Start 09/26 at 22:30 Acetaminophen (Tylenol Tab) 650 mg Q6H PRN PO PAIN AND OR ELEVATED TEMP Last administered on 10/27/16 17:56; Admin Dose 650 MG; Start 09/26/16 at 23:00 Alprazolam (Xanax) 0.5 mg Q12 PRN PO ANXIETY Last administered on 10/29/16 14: 31; Admin Dose 0.5 MG; Start 09/26/16 at 23:00 Ascorbic Acid (Vitamin C) 500 mg BID PO Last administered on 10/31/16 08:15; Admin Dose 500 MG; Start 09/27/16 at 09:00 Atorvastatin Calcium (Lipitor) 20 mg QHS PO Last administered on 10/30/16 20: 32; Admin Dose 20 MG; Start 09/27/16 at 21:00 Diazepam (Valium) 10 mg DAILY PO Last administered on 10/31/16 08:15; Admin Dose 10 MG; Start 09/27/16 at 09:00 Docusate Sodium (Colace) 100 mg Q12H PRN PO CONSTIPATION; Start 09/26/16 at 23: 00 Duloxetine HCl (Cymbalta) 20 mg DAILY PO Last administered on 10/31/16 08:15; Admin Dose 20 MG; Start 09/27/16 at 09:00 Zolpidem Tartrate (Ambien) 5 mg QHS PRN PO INSOMNIA Last administered on 01:41; Admin Dose 5 MG; Start 09/26/16 at 23:00 Collagenase (Santyl) 1 applic DAILY TOP Last administered on 10/23/16 15:00; Admin Dose 1 APPLIC; Start 09/27/16 at 09:00 Collagenase (Santyl) 1 applic PRN PRN TOP SOILED OR DISLODGED DRESSING; Start 09/27/16 at 05:00 Lansoprazole (Prevacid) 30 mg DAILY@06 GTB Last administered on 10/31/16 06:01 ; Admin Dose 30 MG; Start 09/28/16 at 06:00 Cromolyn Sodium (Nasalcrom) 1 spray QID NASAL Last administered on 10/31/16 08 :16; Admin Dose 1 SPRAY; Start 09/29/16 at 11:02 Phenol (Cepastat Lozenge) 1 lozenge Q2H PRN MT SORE THROAT Last administered on 10/02/16 12:48; Admin Dose 1 LOZENGE; Start 10/01/16 at 19:00 IV Flush (NS 10 ml) 10 ml PRN PRN IV IV PROTOCOL; Start 10/02/16 at 19:00 Lactobacillus Acidophilus (Florajen3 Capsule) 1 each TID PO Last administered on 10/31/16 08:14; Admin Dose 1 EACH; Start 10/03/16 at 21:00 Hydromorphone HCl (Dilaudid) 0.5 mg Q4H PRN IV PAIN Last administered on 05:15; Admin Dose 0.5 MG; Start 10/06/16 at 18:30 Promethazine HCl/ Codeine (Phenergan/ Codeine) 10 ml BID PRN PO COUGH Last administered on 10/30/16 20:53; Admin Dose 10 ML; Start 10/07/16 at 20:30 Morphine Sulfate (Ms Contin (Er)) 60 mg Q6 PO Last administered on 10/21/16 12: 28; Admin Dose 60 MG; Start 10/09/16 at 12:00; Status Future Hold Sodium Chloride (Nacl) 1 gm TID PO Last administered on 10/31/16 08:14; Admin Dose 1 GM; Start 10/16/16 at 17:00 Potassium Chloride (Potassium Chloride Pwd/Soln) 20 meq DAILY GTB Last administered on 10/31/16 08:15; Admin Dose 20 MEQ; Start 10/30/16 at 12:00 DIONNE SAUCEDA MD October 31, 2016 12:52
--- NOTE | 2016-10-31 13:09 | PN ---
Date/Time of Note Date/Time of Note DATE: 10/31/16 TIME: 13:08 Assessment/Plan VTE Prophylaxis VTE Prophylaxis Intervention: SCD's Lines/Catheters [facility] ([facility] PICC Line Central line still needed: Yes Urinary Cath still in place: Yes Reason Cath still needed: urinary retention Assessment/Plan Chief Complaint/Hosp Course ASSESSMENT AND PLAN: - Recurrent sepsis, resolving. Dr. Coleman is following in infection disease consultation. Status post treatment with antibiotics. - Persistent leukocytosis secondary to multiple wounds and malignancy. - Hyponatremia, Dr. Zapata is following in nephrology consultation. - Polymicrobial urinary tract infection, s/p treatment. - Left lung squamous cell carcinoma. Patient is not a candidate for chemotherapy. - Chronic obstructive pulmonary disease. Continue breathing treatment. - Multiple decubitus ulcers with history of debridement. Status post sacrococcygeal wound debridement on 10/[address] Sinclair, general surgery. continue current wound care, wound VAC. - Methicillin-resistant Staphylococcus aureus nares colonization. - Cachexia. Optimize nutrition. - Dysphagia with G-tube placement. Continue G-tube feeding. Aspiration precaution. - Chronic urinary retention. Continue George catheter. - Hypothyroidism. TSH is within normal limits. Continue Synthroid. - Anemia of chronic disease. Continue to monitor hemoglobin and hematocrit. Blood transfusion as needed. Further recommendations based on clinical course. Plan of care discussed with Dr. Dozier. Problems: Subjective 24 Hr Interval Summary Free Text/Dictation Patient is status post blood transfusion yesterday, hemoglobin is 9.2 today, rates G-tube feeding well, no acute events Exam/Review of Systems Vital Signs Vitals Vital Signs Date Time Temp Pulse Resp B/P Pulse Ox O2 Delivery O2 Flow Rate FiO2 10/31/16 07:49 98.4 115 18 115/82 97 10/31/16 00:30 2.0 10/30/16 20:30 Nasal Cannula Intake and Output 10/30/16 10/30/16 10/31/16 15:00 23:00 07:00 Intake Total 1490 ml 1020 ml Output Total 900 ml 750 ml Balance 590 ml 270 ml Exam Constitutional: alert, oriented Psych: no complaints Head: atraumatic, normocephalic Eyes: nl conjunctiva ENMT: nl external ears & nose Neck: non-tender, supple Respiratory: clear to auscultation, normal air movement Cardiovascular: nl pulses, regular rate and rhythm Gastrointestinal: non-tender, other (G-tube), soft Musculoskeletal: nl extremities to inspection Extremities: normal pulses 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 Results Result Diagram: 10/31/16 0500 10/31/16 0500 Results 24 hrs Laboratory Tests Test 10/31/16 05:00 White Blood Count 17.7 H Red Blood Count 3.59 L Hemoglobin 9.2 L Hematocrit 30.2 L Mean Corpuscular Volume 84.1 Mean Corpuscular Hemoglobin 25.6 L Mean Corpuscular Hemoglobin Concent 30.5 L Red Cell Distribution Width 17.2 H Platelet Count 429 H Mean Platelet Volume 9.1 Neutrophils % 73.2 Lymphocytes % 12.5 L Monocytes % 9.7 Eosinophils % 3.4 Basophils % 0.6 Nucleated Red Blood Cells % 0.0 Neutrophils # 12.9 H Lymphocytes # 2.2 Monocytes # 1.7 H Eosinophils # 0.6 H Basophils # 0.1 Nucleated Red Blood Cells # 0.0 Sodium Level 135 Potassium Level 3.5 Chloride Level 96 L Carbon Dioxide Level 28 Anion Gap 15 Blood Urea Nitrogen 21 H Creatinine 0.45 Glucose Level 133 Calcium Level 8.6 Medications Medications Current Medications Ondansetron HCl (Zofran Inj) 4 mg Q6 PRN IV NAUSEA AND/OR VOMITING; Start 09/26 at 22:30 Acetaminophen (Tylenol Tab) 650 mg Q6H PRN PO PAIN AND OR ELEVATED TEMP Last administered on 10/27/16 17:56; Admin Dose 650 MG; Start 09/26/16 at 23:00 Alprazolam (Xanax) 0.5 mg Q12 PRN PO ANXIETY Last administered on 10/29/16 14: 31; Admin Dose 0.5 MG; Start 09/26/16 at 23:00 Ascorbic Acid (Vitamin C) 500 mg BID PO Last administered on 10/31/16 08:15; Admin Dose 500 MG; Start 09/27/16 at 09:00 Atorvastatin Calcium (Lipitor) 20 mg QHS PO Last administered on 10/30/16 20: 32; Admin Dose 20 MG; Start 09/27/16 at 21:00 Diazepam (Valium) 10 mg DAILY PO Last administered on 10/31/16 08:15; Admin Dose 10 MG; Start 09/27/16 at 09:00 Docusate Sodium (Colace) 100 mg Q12H PRN PO CONSTIPATION; Start 09/26/16 at 23: 00 Duloxetine HCl (Cymbalta) 20 mg DAILY PO Last administered on 10/31/16 08:15; Admin Dose 20 MG; Start 09/27/16 at 09:00 Zolpidem Tartrate (Ambien) 5 mg QHS PRN PO INSOMNIA Last administered on 01:41; Admin Dose 5 MG; Start 09/26/16 at 23:00 Collagenase (Santyl) 1 applic DAILY TOP Last administered on 10/23/16 15:00; Admin Dose 1 APPLIC; Start 09/27/16 at 09:00 Collagenase (Santyl) 1 applic PRN PRN TOP SOILED OR DISLODGED DRESSING; Start 09/27/16 at 05:00 Lansoprazole (Prevacid) 30 mg DAILY@06 GTB Last administered on 10/31/16 06:01 ; Admin Dose 30 MG; Start 09/28/16 at 06:00 Cromolyn Sodium (Nasalcrom) 1 spray QID NASAL Last administered on 10/31/16 08 :16; Admin Dose 1 SPRAY; Start 09/29/16 at 11:02 Phenol (Cepastat Lozenge) 1 lozenge Q2H PRN MT SORE THROAT Last administered on 10/02/16 12:48; Admin Dose 1 LOZENGE; Start 10/01/16 at 19:00 IV Flush (NS 10 ml) 10 ml PRN PRN IV IV PROTOCOL; Start 10/02/16 at 19:00 Lactobacillus Acidophilus (Florajen3 Capsule) 1 each TID PO Last administered on 10/31/16 08:14; Admin Dose 1 EACH; Start 10/03/16 at 21:00 Hydromorphone HCl (Dilaudid) 0.5 mg Q4H PRN IV PAIN Last administered on 05:15; Admin Dose 0.5 MG; Start 10/06/16 at 18:30 Promethazine HCl/ Codeine (Phenergan/ Codeine) 10 ml BID PRN PO COUGH Last administered on 10/30/16 20:53; Admin Dose 10 ML; Start 10/07/16 at 20:30 Morphine Sulfate (Ms Contin (Er)) 60 mg Q6 PO Last administered on 10/21/16 12: 28; Admin Dose 60 MG; Start 10/09/16 at 12:00; Status Future Hold Sodium Chloride (Nacl) 1 gm TID PO Last administered on 10/31/16 08:14; Admin Dose 1 GM; Start 10/16/16 at 17:00 Potassium Chloride (Potassium Chloride Pwd/Soln) 20 meq DAILY GTB Last administered on 10/31/16 08:15; Admin Dose 20 MEQ; Start 10/30/16 at 12:00 REBECCA ISLAS October 31, 2016 13:09
--- NOTE | 2016-10-31 13:12 | CONS ---
Date/Time of Note Date/Time of Note DATE: 10/31/16 TIME: 13:11 Assessment/Plan Assessment/Plan Additional Assessment/Plan SIRS Intermittent hypotension Diastolic congestive heart failure, compensated Pulmonary hypertension Preserved ejection fraction Tricuspid valve regurgitation Lung cancer -Blood pressure trend remains stable, would continue to hold antihypertensives at the current time. Maintain potassium above 4.0 and magnesium above 2.0. Consultation Date/Type/Reason Admit Date/Time Sep 26, 2016 at 20:07 Type of Consultation: cv Referring Provider: DRE LOBATO MD 24 HR Interval Summary Free Text/Dictation Denies shortness of breath, chest pain or palpitations Exam/Review of Systems Vital Signs Vitals Vital Signs Date Time Temp Pulse Resp B/P Pulse Ox O2 Delivery O2 Flow Rate FiO2 10/31/16 07:49 98.4 115 18 115/82 97 10/31/16 00:30 2.0 10/30/16 20:30 Nasal Cannula Intake and Output 10/30/16 10/30/16 10/31/16 15:00 23:00 07:00 Intake Total 1490 ml 1020 ml Output Total 900 ml 750 ml Balance 590 ml 270 ml Exam No apparent distress, following commands Constitutional: alert, frail, oriented Respiratory: other (Coarse breath sounds bilaterally, no wheezing) Cardiovascular: other (S1-S2 heard), regular rate and rhythm Gastrointestinal: bowel sounds, non-tender, soft Extremities: other (No edema) Results Result Diagram: 10/31/16 0500 10/31/16 0500 Results 24 hrs Laboratory Tests Test 10/31/16 05:00 White Blood Count 17.7 H Red Blood Count 3.59 L Hemoglobin 9.2 L Hematocrit 30.2 L Mean Corpuscular Volume 84.1 Mean Corpuscular Hemoglobin 25.6 L Mean Corpuscular Hemoglobin Concent 30.5 L Red Cell Distribution Width 17.2 H Platelet Count 429 H Mean Platelet Volume 9.1 Neutrophils % 73.2 Lymphocytes % 12.5 L Monocytes % 9.7 Eosinophils % 3.4 Basophils % 0.6 Nucleated Red Blood Cells % 0.0 Neutrophils # 12.9 H Lymphocytes # 2.2 Monocytes # 1.7 H Eosinophils # 0.6 H Basophils # 0.1 Nucleated Red Blood Cells # 0.0 Sodium Level 135 Potassium Level 3.5 Chloride Level 96 L Carbon Dioxide Level 28 Anion Gap 15 Blood Urea Nitrogen 21 H Creatinine 0.45 Glucose Level 133 Calcium Level 8.6 Medications Medications Current Medications Ondansetron HCl (Zofran Inj) 4 mg Q6 PRN IV NAUSEA AND/OR VOMITING; Start 09/26 at 22:30 Acetaminophen (Tylenol Tab) 650 mg Q6H PRN PO PAIN AND OR ELEVATED TEMP Last administered on 10/27/16 17:56; Admin Dose 650 MG; Start 09/26/16 at 23:00 Alprazolam (Xanax) 0.5 mg Q12 PRN PO ANXIETY Last administered on 10/29/16 14: 31; Admin Dose 0.5 MG; Start 09/26/16 at 23:00 Ascorbic Acid (Vitamin C) 500 mg BID PO Last administered on 10/31/16 08:15; Admin Dose 500 MG; Start 09/27/16 at 09:00 Atorvastatin Calcium (Lipitor) 20 mg QHS PO Last administered on 10/30/16 20: 32; Admin Dose 20 MG; Start 09/27/16 at 21:00 Diazepam (Valium) 10 mg DAILY PO Last administered on 10/31/16 08:15; Admin Dose 10 MG; Start 09/27/16 at 09:00 Docusate Sodium (Colace) 100 mg Q12H PRN PO CONSTIPATION; Start 09/26/16 at 23: 00 Duloxetine HCl (Cymbalta) 20 mg DAILY PO Last administered on 10/31/16 08:15; Admin Dose 20 MG; Start 09/27/16 at 09:00 Zolpidem Tartrate (Ambien) 5 mg QHS PRN PO INSOMNIA Last administered on 01:41; Admin Dose 5 MG; Start 09/26/16 at 23:00 Collagenase (Santyl) 1 applic DAILY TOP Last administered on 10/23/16 15:00; Admin Dose 1 APPLIC; Start 09/27/16 at 09:00 Collagenase (Santyl) 1 applic PRN PRN TOP SOILED OR DISLODGED DRESSING; Start 09/27/16 at 05:00 Lansoprazole (Prevacid) 30 mg DAILY@06 GTB Last administered on 10/31/16 06:01 ; Admin Dose 30 MG; Start 09/28/16 at 06:00 Cromolyn Sodium (Nasalcrom) 1 spray QID NASAL Last administered on 10/31/16 08 :16; Admin Dose 1 SPRAY; Start 09/29/16 at 11:02 Phenol (Cepastat Lozenge) 1 lozenge Q2H PRN MT SORE THROAT Last administered on 10/02/16 12:48; Admin Dose 1 LOZENGE; Start 10/01/16 at 19:00 IV Flush (NS 10 ml) 10 ml PRN PRN IV IV PROTOCOL; Start 10/02/16 at 19:00 Lactobacillus Acidophilus (Florajen3 Capsule) 1 each TID PO Last administered on 10/31/16 08:14; Admin Dose 1 EACH; Start 10/03/16 at 21:00 Hydromorphone HCl (Dilaudid) 0.5 mg Q4H PRN IV PAIN Last administered on 05:15; Admin Dose 0.5 MG; Start 10/06/16 at 18:30 Promethazine HCl/ Codeine (Phenergan/ Codeine) 10 ml BID PRN PO COUGH Last administered on 10/30/16 20:53; Admin Dose 10 ML; Start 10/07/16 at 20:30 Morphine Sulfate (Ms Contin (Er)) 60 mg Q6 PO Last administered on 10/21/16 12: 28; Admin Dose 60 MG; Start 10/09/16 at 12:00; Status Future Hold Sodium Chloride (Nacl) 1 gm TID PO Last administered on 10/31/16 08:14; Admin Dose 1 GM; Start 10/16/16 at 17:00 Potassium Chloride (Potassium Chloride Pwd/Soln) 20 meq DAILY GTB Last administered on 10/31/16 08:15; Admin Dose 20 MEQ; Start 10/30/16 at 12:00 Artemio Tipton DO October 31, 2016 13:12
--- NOTE | 2016-10-31 13:24 | PN ---
Date/Time of Note Date/Time of Note DATE: 10/31/16 TIME: 13:23 Assessment/Plan Lines/Catheters IV Catheter Type (from Nrs): PICC Line George in Place (from Nrs): Yes Assessment/Plan Chief Complaint/Hosp Course 1. Multiple decubitus ulcers with debris. Sacrococcygeal ulcer s/p exc boris . -Offload -Optimize nutrition -Vitamin C -Local care 2. UTI s/p abx 3. 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 Acute on chronic diastolic heart failure -Judicious fluid management -Cardiac optimization 5. Hypertension -Diet and medication control 6. Chronic urinary retention with George 7. Depression. -Medical management 8. Hypothyroidism by history. -Synthroid 9. Anemia of chronic disease in addition to iron deficiency anemia. -Continue iron supplements. -Transfusion when necessary 10. Chronic pain syndrome. Continue pain management. Thank you Problems: Subjective 24 Hr Interval Summary s/p Excisional boris 10/27. Leukocytosis. No fevers, chills, nausea, vomiting, or abdominal pain. No abnormal vaginal discharge. No bloating. No cough, sz, bloating. No robles/dizzy/visual or neuro changes. Exam/Review of Systems Vital Signs Vitals Vital Signs Date Time Temp Pulse Resp B/P Pulse Ox O2 Delivery O2 Flow Rate FiO2 10/31/16 07:49 98.4 115 18 115/82 97 10/31/16 00:30 2.0 10/30/16 20:30 Nasal Cannula Intake and Output 10/30/16 10/30/16 10/31/16 15:00 23:00 07:00 Intake Total 1490 ml 1020 ml Output Total 900 ml 750 ml Balance 590 ml 270 ml Exam Free Text/Dictation GENERAL: Elderly, cachectic, no acute distress. HEENT: Head is atraumatic, normocephalic. Pupils equal, round, reactive to light and accommodation. Oral mucosa is pink and moist. NECK: Supple, no cervical lymphadenopathy LUNGS: Normal respiratory effort CARDIAC: S1 and S2. Irregular ABDOMEN: Flat, soft and nondistended. Nontender. No rebound or guarding. SKIN: Multiple decubitus wounds/ulcers buttock sacrum and right lower extremity EXTREMITIES: No edema. Pulses equal bilaterally, 2+. NEUROLOGICAL: Responsive VASCULAR: Refill is less than 2 seconds Results Result Diagram: 10/31/16 0500 10/31/16 0500 ZAK POSEY MD October 31, 2016 13:24
--- NOTE | 2016-10-31 13:29 | RADRPT ---
PROCEDURE: Chest Radiograph. CLINICAL INDICATION: Pneumonia TECHNIQUE: Single frontal chest radiograph. COMPARISON: Chest radiograph 10/24/2016 FINDINGS: A right upper extremity PICC remains in place with distal tip in the region of the cavoatrial juncti on. Heart size is within normal limits. Atherosclerotic calcifications are present. There is a 9. 3 cm ovoid opacity in the left mid lung zone which may represent a rounded consolidation or pulmonar y mass. There is mild bronchial wall thickening bilaterally which may represent acute or chronic br onchitis.. There is a stable interstitial prominence. No pleural effusion is identified. The bon es are intact. IMPRESSION: 1. Stable radiographic appearance of chest compared to 10/24/2016. Consider CT of the chest for fu rther evaluation if the large left ovoid opacity has not been previously further characterized by cr oss-sectional imaging. 2. Bronchial wall thickening and interstitial opacities consistent with acute or chronic bronchitis . 3. Atherosclerotic vascular disease. RPTAT: KK .Jama Brand MD, MD Date Time Electronically viewed and signed by .Jama Brand MD, MD on 10/31/2016 13:29 .B/
[2016-10-31] MEDS ORDERED: POTASSIUM CHLORIDE 20 MEQ POWDER FOR ORAL SOLN GTB ONE (13:30)
[2016-10-31 20:05] VITALS: BP 118/79; RESP 16
[2016-10-31] MEDS: ATORVASTATIN 20 MG TAB PO SCH (20:49)
[2016-10-31] MEDS: ACETAMINOPHEN 325 MG TAB PO PRN (20:49)
[2016-10-31] MEDS: PROMETHAZINE/CODEINE 5ML CUP PO PRN (20:58)
[2016-10-31] MEDS: ALBUTEROL/IPRATROPIUM (NEB) 3 ML AMP NEB PRN (21:51)
[2016-11-01] MEDS: HYDROmorphONE 1 MG/ML SYG IV PRN ×5 (01:59→22:34)
[2016-11-01] MEDS: LEVOTHYROXINE 125 MCG TAB PO SCH (05:41)
[2016-11-01] MEDS: LANSOPRAZOLE 30 MG CAP GTB SCH (05:41)
[2016-11-01 05:52] LABS: ADD SCAN DIFF NO
[2016-11-01 06:03] LABS: ABNORMAL IP MESSAGE 1; BASOPHIL # 0.1 10^3/ul (0.0-0.1); BASOPHILS % 0.6 % (0.0-2.0); EOSINOPHILS # 0.7 10^3/ul (0.0-0.5); EOSINOPHILS % 4.2 % (0.0-7.0); HEMATOCRIT 28.3 % (37.0-47.0); HEMOGLOBIN 8.6 g/dl (12.0-16.0); LYMPHOCYTES # 1.9 10^3/ul (0.8-2.9); LYMPHOCYTES % 11.9 % (15.0-51.0); MEAN CORPUSCULAR HGB CONC 30.4 g/dl (32.0-37.0); MEAN CORPUSCULAR VOLUME 85.5 fl (82.0-101.0); MEAN PLATELET VOLUME 9.2 fl (7.4-10.4); MONOCYTE # 1.6 10^3/ul (0.3-0.9); MONOCYTES % 10.2 % (0.0-11.0); NEUTROPHIL # 11.5 10^3/ul (1.6-7.5); NEUTROPHILS % 72.3 % (39.0-77.0); PLATELET COUNT 449 10^3/UL (140-415); RED BLOOD COUNT 3.31 10^6/ul (4.20-5.40); RED CELL DISTRIBUTION WIDTH 17.5 % (11.5-14.5); WHITE BLOOD COUNT 15.9 10^3/ul (4.8-10.8)
[2016-11-01 06:25] LABS: POTASSIUM 3.9 mmol/L (3.5-5.1)
[2016-11-01 06:27] LABS: CREATININE 0.41 mg/dl (0.44-1.00)
[2016-11-01 06:28] LABS: CALCIUM 8.7 mg/dl (8.4-10.2)
[2016-11-01 07:20] VITALS: BP 101/70; RESP 18
[2016-11-01] MEDS: L ACIDOPHIL/B LACTIS/B LONGUM CAPSULE PO SCH ×3 (08:28→21:33)
[2016-11-01] MEDS: POTASSIUM CHLORIDE 20 MEQ POWDER FOR ORAL SOLN GTB SCH (08:28)
[2016-11-01] MEDS: CROMOLYN 4% 26ML NAS INH NASAL SCH ×4 (08:28→21:33)
[2016-11-01] MEDS: ASCORBIC ACID 500 MG TAB PO SCH ×2 (08:28→21:33)
[2016-11-01] MEDS: SODIUM CHLORIDE 1 GM TAB PO SCH ×2 (08:28→21:33)
[2016-11-01] MEDS: DULOXETINE 20 MG CAP DR PO SCH (08:34)
[2016-11-01] MEDS: DIAZEPAM 5 MG TAB PO SCH (08:34)
[2016-11-01] MEDS: COLLAGENASE 30 GM TUBE TOP SCH (09:00)
--- NOTE | 2016-11-01 13:39 | PN ---
Date/Time of Note Date/Time of Note DATE: 11/01/16 TIME: 13:38 Assessment/Plan VTE Prophylaxis VTE Prophylaxis Intervention: SCD's Lines/Catheters IV Catheter Type ([facility] PICC Line Central line still needed: Yes Urinary Cath still in place: Yes Reason Cath still needed: urinary retention Assessment/Plan Chief Complaint/Hosp Course ASSESSMENT AND PLAN: - Recurrent sepsis, resolved. Dr. Coleman is following in infection disease consultation. Status post treatment with antibiotics. - Persistent leukocytosis secondary to multiple wounds and malignancy. - Hyponatremia, Dr. Zapata is following in nephrology consultation. - Polymicrobial urinary tract infection, s/p treatment. - Left lung squamous cell carcinoma. Patient is not a candidate for chemotherapy. - Chronic obstructive pulmonary disease. Continue breathing treatment. - Multiple decubitus ulcers with history of debridement. Status post sacrococcygeal wound debridement on 10/[address] Sinclair, general surgery. continue current wound care, wound VAC. - Methicillin-resistant Staphylococcus aureus nares colonization. - Cachexia. Optimize nutrition. - Dysphagia with G-tube placement. Continue G-tube feeding. Aspiration precaution. - Chronic urinary retention. Continue George catheter. - Hypothyroidism. TSH is within normal limits. Continue Synthroid. - Anemia of chronic disease. Continue to monitor hemoglobin and hematocrit. Blood transfusion as needed. DC planning Further recommendations based on clinical course. Plan of care discussed with Dr. Dozier. Problems: Subjective 24 Hr Interval Summary Free Text/Dictation No acute events overnight, patient looks comfortable remains afebrile. Exam/Review of Systems Vital Signs Vitals Vital Signs Date Time Temp Pulse Resp B/P Pulse Ox O2 Delivery O2 Flow Rate FiO2 11/01/16 07:20 98.0 106 18 101/70 98 11/01/16 01:54 2.0 10/31/16 21:52 Nasal Cannula Intake and Output 10/31/16 10/31/16 11/01/16 15:00 23:00 07:00 Intake Total 970 ml 990 ml Output Total 1400 ml 900 ml Balance -430 ml 90 ml Exam Constitutional: alert, oriented Psych: no complaints Head: atraumatic, normocephalic Eyes: nl conjunctiva ENMT: nl external ears & nose Neck: non-tender, supple Respiratory: clear to auscultation, normal air movement Cardiovascular: nl pulses, regular rate and rhythm Gastrointestinal: non-tender, other (G-tube), soft Musculoskeletal: nl extremities to inspection Extremities: normal pulses Neurological: DEVELOPMENT DIRECTOR II-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 Results Result Diagram: 11/01/16 0505 11/01/16 0505 Results 24 hrs Laboratory Tests Test 11/01/16 05:05 White Blood Count 15.9 H Red Blood Count 3.31 L Hemoglobin 8.6 L Hematocrit 28.3 L Mean Corpuscular Volume 85.5 Mean Corpuscular Hemoglobin 26.0 L Mean Corpuscular Hemoglobin Concent 30.4 L Red Cell Distribution Width 17.5 H Platelet Count 449 H Mean Platelet Volume 9.2 Neutrophils % 72.3 Lymphocytes % 11.9 L Monocytes % 10.2 Eosinophils % 4.2 Basophils % 0.6 Nucleated Red Blood Cells % 0.0 Neutrophils # 11.5 H Lymphocytes # 1.9 Monocytes # 1.6 H Eosinophils # 0.7 H Basophils # 0.1 Nucleated Red Blood Cells # 0.0 Sodium Level 137 Potassium Level 3.9 Chloride Level 98 Carbon Dioxide Level 27 Anion Gap 16 Blood Urea Nitrogen 23 H Creatinine 0.41 L Glucose Level 128 Calcium Level 8.7 Medications Medications Current Medications Ondansetron HCl (Zofran Inj) 4 mg Q6 PRN IV NAUSEA AND/OR VOMITING; Start 09/26 at 22:30 Acetaminophen (Tylenol Tab) 650 mg Q6H PRN PO PAIN AND OR ELEVATED TEMP Last administered on 10/31/16 20:49; Admin Dose 650 MG; Start 09/26/16 at 23:00 Alprazolam (Xanax) 0.5 mg Q12 PRN PO ANXIETY Last administered on 10/29/16 14: 31; Admin Dose 0.5 MG; Start 09/26/16 at 23:00 Ascorbic Acid (Vitamin C) 500 mg BID PO Last administered on 11/01/16 08:28; Admin Dose 500 MG; Start 09/27/16 at 09:00 Atorvastatin Calcium (Lipitor) 20 mg QHS PO Last administered on 10/31/16 20: 49; Admin Dose 20 MG; Start 09/27/16 at 21:00 Diazepam (Valium) 10 mg DAILY PO Last administered on 11/01/16 08:34; Admin Dose 10 MG; Start 09/27/16 at 09:00 Docusate Sodium (Colace) 100 mg Q12H PRN PO CONSTIPATION; Start 09/26/16 at 23: 00 Duloxetine HCl (Cymbalta) 20 mg DAILY PO Last administered on 11/01/16 08:34; Admin Dose 20 MG; Start 09/27/16 at 09:00 Zolpidem Tartrate (Ambien) 5 mg QHS PRN PO INSOMNIA Last administered on 01:41; Admin Dose 5 MG; Start 09/26/16 at 23:00 Collagenase (Santyl) 1 applic DAILY TOP Last administered on 10/23/16 15:00; Admin Dose 1 APPLIC; Start 09/27/16 at 09:00 Collagenase (Santyl) 1 applic PRN PRN TOP SOILED OR DISLODGED DRESSING; Start 09/27/16 at 05:00 Lansoprazole (Prevacid) 30 mg DAILY@06 GTB Last administered on 11/01/16 05:41 ; Admin Dose 30 MG; Start 09/28/16 at 06:00 Cromolyn Sodium (Nasalcrom) 1 spray QID NASAL Last administered on 11/01/16 08 :28; Admin Dose 1 SPRAY; Start 09/29/16 at 11:02 Phenol (Cepastat Lozenge) 1 lozenge Q2H PRN MT SORE THROAT Last administered on 10/02/16 12:48; Admin Dose 1 LOZENGE; Start 10/01/16 at 19:00 IV Flush (NS 10 ml) 10 ml PRN PRN IV IV PROTOCOL Last administered on 13:11; Admin Dose 10 ML; Start 10/02/16 at 19:00 Lactobacillus Acidophilus (Florajen3 Capsule) 1 each TID PO Last administered on 11/01/16 08:28; Admin Dose 1 EACH; Start 10/03/16 at 21:00 Hydromorphone HCl (Dilaudid) 0.5 mg Q4H PRN IV PAIN Last administered on 10:35; Admin Dose 0.5 MG; Start 10/06/16 at 18:30 Promethazine HCl/ Codeine (Phenergan/ Codeine) 10 ml BID PRN PO COUGH Last administered on 10/31/16 20:58; Admin Dose 10 ML; Start 10/07/16 at 20:30 Morphine Sulfate (Ms Contin (Er)) 60 mg Q6 PO Last administered on 10/21/16 12: 28; Admin Dose 60 MG; Start 10/09/16 at 12:00; Status Future Hold Sodium Chloride (Nacl) 1 gm TID PO Last administered on 11/01/16 08:28; Admin Dose 1 GM; Start 10/16/16 at 17:00 Potassium Chloride 20 meq 20 meq DAILY GTB Last administered on 11/01/16 08:28 ; Admin Dose 20 MEQ; Start 10/30/16 at 12:00 Meropenem (Merrem 500 Mg/ 100 ml (Pmx)) 100 ml @ 200 mls/hr Q8 IVPB ; Start at 14:00 REBECCA ISLAS November 01, 2016 13:39
--- NOTE | 2016-11-01 14:19 | CONS ---
Date/Time of Note Date/Time of Note DATE: 11/01/16 TIME: 14:18 Assessment/Plan Assessment/Plan Additional Assessment/Plan 1. Hyponatremia, multifactorial - pt likey has Component of SAIDH causing hypoantreia, due to acute on chronic pain 2. Status post acute kidney injury on chronic kidney disease due to systemic inflammatory response syndrome. 3. Systemic inflammatory response syndrome. 4. History of recurrent polymicrobial urinary tract infections. 5. History of dementia. 6. History of previous cerebrovascular accident. 7. History of chronic obstructive pulmonary disease, recently had acute respiratory failure secondary to chronic obstructive pulmonary disease exacerbation. 8. History of urinary retention with a chronic George catheter in place. 9. Chronic debility with cachexia. 10. Multiple decubitus ulcers with a history of debridement. 11. History of degenerative joint disease of spine. 12. History of hypertension and hypertensive heart disease with mild to moderate concentric left ventricular hypertrophy and echocardiogram with diastolic dysfunction stage I. PLAN: pt likey has Component of SAIDH causing hypoantreia, due to acute on chronic pain s/p one dose of tolvaptan 15 mg on 10/24/16- Na today is 137 will decrease Na Chloride tablet 1 gram PO BID monitor electrolytes will follow up Consultation Date/Type/Reason Admit Date/Time Sep 26, 2016 at 20:07 Type of Consultation: NEPHROLOGY Referring Provider: DRE LOBATO MD 24 HR Interval Summary Free Text/Dictation no acute events, BP stable Exam/Review of Systems Vital Signs Vitals Vital Signs Date Time Temp Pulse Resp B/P Pulse Ox O2 Delivery O2 Flow Rate FiO2 11/01/16 07:20 98.0 106 18 101/70 98 11/01/16 01:54 2.0 10/31/16 21:52 Nasal Cannula Intake and Output 10/31/16 10/31/16 11/01/16 15:00 23:00 07:00 Intake Total 970 ml 990 ml Output Total 1400 ml 900 ml Balance -430 ml 90 ml Exam GENERAL: A cachectic elderly woman who is awake, in no distress. HEENT: Head atraumatic, normocephalic. Sclerae anicteric. Buccal mucosa dry. NECK: Supple. CHEST: Rise symmetrical. Breath sounds clear, diminished to bases. HEART: S1, S2. ABDOMEN: Soft, bowel sounds present. EXTREMITIES: Without cyanosis. Results Result Diagram: 11/01/16 0505 11/01/16 0505 Results 24 hrs Laboratory Tests Test 11/01/16 05:05 White Blood Count 15.9 H Red Blood Count 3.31 L Hemoglobin 8.6 L Hematocrit 28.3 L Mean Corpuscular Volume 85.5 Mean Corpuscular Hemoglobin 26.0 L Mean Corpuscular Hemoglobin Concent 30.4 L Red Cell Distribution Width 17.5 H Platelet Count 449 H Mean Platelet Volume 9.2 Neutrophils % 72.3 Lymphocytes % 11.9 L Monocytes % 10.2 Eosinophils % 4.2 Basophils % 0.6 Nucleated Red Blood Cells % 0.0 Neutrophils # 11.5 H Lymphocytes # 1.9 Monocytes # 1.6 H Eosinophils # 0.7 H Basophils # 0.1 Nucleated Red Blood Cells # 0.0 Sodium Level 137 Potassium Level 3.9 Chloride Level 98 Carbon Dioxide Level 27 Anion Gap 16 Blood Urea Nitrogen 23 H Creatinine 0.41 L Glucose Level 128 Calcium Level 8.7 Medications Medications Current Medications Ondansetron HCl (Zofran Inj) 4 mg Q6 PRN IV NAUSEA AND/OR VOMITING; Start 09/26 at 22:30 Acetaminophen (Tylenol Tab) 650 mg Q6H PRN PO PAIN AND OR ELEVATED TEMP Last administered on 10/31/16 20:49; Admin Dose 650 MG; Start 09/26/16 at 23:00 Alprazolam (Xanax) 0.5 mg Q12 PRN PO ANXIETY Last administered on 10/29/16 14: 31; Admin Dose 0.5 MG; Start 09/26/16 at 23:00 Ascorbic Acid (Vitamin C) 500 mg BID PO Last administered on 11/01/16 08:28; Admin Dose 500 MG; Start 09/27/16 at 09:00 Atorvastatin Calcium (Lipitor) 20 mg QHS PO Last administered on 10/31/16 20: 49; Admin Dose 20 MG; Start 09/27/16 at 21:00 Diazepam (Valium) 10 mg DAILY PO Last administered on 11/01/16 08:34; Admin Dose 10 MG; Start 09/27/16 at 09:00 Docusate Sodium (Colace) 100 mg Q12H PRN PO CONSTIPATION; Start 09/26/16 at 23: 00 Duloxetine HCl (Cymbalta) 20 mg DAILY PO Last administered on 11/01/16 08:34; Admin Dose 20 MG; Start 09/27/16 at 09:00 Zolpidem Tartrate (Ambien) 5 mg QHS PRN PO INSOMNIA Last administered on 01:41; Admin Dose 5 MG; Start 09/26/16 at 23:00 Collagenase (Santyl) 1 applic DAILY TOP Last administered on 10/23/16 15:00; Admin Dose 1 APPLIC; Start 09/27/16 at 09:00 Collagenase (Santyl) 1 applic PRN PRN TOP SOILED OR DISLODGED DRESSING; Start 09/27/16 at 05:00 Lansoprazole (Prevacid) 30 mg DAILY@06 GTB Last administered on 11/01/16 05:41 ; Admin Dose 30 MG; Start 09/28/16 at 06:00 Cromolyn Sodium (Nasalcrom) 1 spray QID NASAL Last administered on 11/01/16 08 :28; Admin Dose 1 SPRAY; Start 09/29/16 at 11:02 Phenol (Cepastat Lozenge) 1 lozenge Q2H PRN MT SORE THROAT Last administered on 10/02/16 12:48; Admin Dose 1 LOZENGE; Start 10/01/16 at 19:00 IV Flush (NS 10 ml) 10 ml PRN PRN IV IV PROTOCOL Last administered on 13:11; Admin Dose 10 ML; Start 10/02/16 at 19:00 Lactobacillus Acidophilus (Florajen3 Capsule) 1 each TID PO Last administered on 11/01/16 08:28; Admin Dose 1 EACH; Start 10/03/16 at 21:00 Hydromorphone HCl (Dilaudid) 0.5 mg Q4H PRN IV PAIN Last administered on 10:35; Admin Dose 0.5 MG; Start 10/06/16 at 18:30 Promethazine HCl/ Codeine (Phenergan/ Codeine) 10 ml BID PRN PO COUGH Last administered on 10/31/16 20:58; Admin Dose 10 ML; Start 10/07/16 at 20:30 Morphine Sulfate (Ms Contin (Er)) 60 mg Q6 PO Last administered on 10/21/16 12: 28; Admin Dose 60 MG; Start 10/09/16 at 12:00; Status Future Hold Sodium Chloride (Nacl) 1 gm TID PO Last administered on 11/01/16 08:28; Admin Dose 1 GM; Start 10/16/16 at 17:00 Potassium Chloride 20 meq 20 meq DAILY GTB Last administered on 11/01/16 08:28 ; Admin Dose 20 MEQ; Start 10/30/16 at 12:00 Meropenem (Merrem 500 Mg/ 100 ml (Pmx)) 100 ml @ 200 mls/hr Q8 IVPB ; Start at 14:00 DIONNE SAUCEDA MD November 01, 2016 14:19
--- NOTE | 2016-11-01 14:29 | CONS ---
Date/Time of Note Date/Time of Note DATE: 11/01/16 TIME: 14:27 Assessment/Plan Assessment/Plan Chief Complaint/Hosp Course SUBJECTIVE: No events overnight. No fevers. looks comfortable INDWELLINGS: PEG, George, PICC line. PHYSICAL EXAMINATION: GENERAL: A cachectic elderly woman who is in no distress. HEENT: Head atraumatic, normocephalic. Sclerae anicteric. Buccal mucosa dry. NECK: Supple. CHEST: Rise symmetrical. Breath sounds clear, diminished to bases. HEART: S1, S2. ABDOMEN: Soft, bowel sounds present. EXTREMITIES: Without cyanosis. ASSESSMENT: 1. Systemic inflammatory response syndrome with persistent leukocytosis possibly secondary to malignancy. 2. Lung cancer. 3. Cachexia. 4. Sacral decubitus==> culture growing multidrug resistant organisms, status post debridement with wound VAC application, wound looks clean per dw Dr Sinclair. 5. History of Clostridium difficile. 6. Hx MRSA colonization==> repeat swab negative 7. Recurrent UTI===> GNR PLAN: Clinically unchanged, will start Merrem, change George, await for urine cx DW staff Problems: Consultation Date/Type/Reason Admit Date/Time Sep 26, 2016 at 20:07 Type of Consultation: ID Referring Provider: DRE LOBATO MD Exam/Review of Systems Vital Signs Vitals Vital Signs Date Time Temp Pulse Resp B/P Pulse Ox O2 Delivery O2 Flow Rate FiO2 11/01/16 07:20 98.0 106 18 101/70 98 11/01/16 01:54 2.0 10/31/16 21:52 Nasal Cannula Intake and Output 10/31/16 10/31/16 11/01/16 15:00 23:00 07:00 Intake Total 970 ml 990 ml Output Total 1400 ml 900 ml Balance -430 ml 90 ml Results Result Diagram: 11/01/16 0505 11/01/16 0505 Results 24 hrs Laboratory Tests Test 11/01/16 05:05 White Blood Count 15.9 H Red Blood Count 3.31 L Hemoglobin 8.6 L Hematocrit 28.3 L Mean Corpuscular Volume 85.5 Mean Corpuscular Hemoglobin 26.0 L Mean Corpuscular Hemoglobin Concent 30.4 L Red Cell Distribution Width 17.5 H Platelet Count 449 H Mean Platelet Volume 9.2 Neutrophils % 72.3 Lymphocytes % 11.9 L Monocytes % 10.2 Eosinophils % 4.2 Basophils % 0.6 Nucleated Red Blood Cells % 0.0 Neutrophils # 11.5 H Lymphocytes # 1.9 Monocytes # 1.6 H Eosinophils # 0.7 H Basophils # 0.1 Nucleated Red Blood Cells # 0.0 Sodium Level 137 Potassium Level 3.9 Chloride Level 98 Carbon Dioxide Level 27 Anion Gap 16 Blood Urea Nitrogen 23 H Creatinine 0.41 L Glucose Level 128 Calcium Level 8.7 Medications Medications Current Medications Ondansetron HCl (Zofran Inj) 4 mg Q6 PRN IV NAUSEA AND/OR VOMITING; Start 09/26 at 22:30 Acetaminophen (Tylenol Tab) 650 mg Q6H PRN PO PAIN AND OR ELEVATED TEMP Last administered on 10/31/16 20:49; Admin Dose 650 MG; Start 09/26/16 at 23:00 Alprazolam (Xanax) 0.5 mg Q12 PRN PO ANXIETY Last administered on 10/29/16 14: 31; Admin Dose 0.5 MG; Start 09/26/16 at 23:00 Ascorbic Acid (Vitamin C) 500 mg BID PO Last administered on 11/01/16 08:28; Admin Dose 500 MG; Start 09/27/16 at 09:00 Atorvastatin Calcium (Lipitor) 20 mg QHS PO Last administered on 10/31/16 20: 49; Admin Dose 20 MG; Start 09/27/16 at 21:00 Diazepam (Valium) 10 mg DAILY PO Last administered on 11/01/16 08:34; Admin Dose 10 MG; Start 09/27/16 at 09:00 Docusate Sodium (Colace) 100 mg Q12H PRN PO CONSTIPATION; Start 09/26/16 at 23: 00 Duloxetine HCl (Cymbalta) 20 mg DAILY PO Last administered on 11/01/16 08:34; Admin Dose 20 MG; Start 09/27/16 at 09:00 Zolpidem Tartrate (Ambien) 5 mg QHS PRN PO INSOMNIA Last administered on 01:41; Admin Dose 5 MG; Start 09/26/16 at 23:00 Collagenase (Santyl) 1 applic DAILY TOP Last administered on 10/23/16 15:00; Admin Dose 1 APPLIC; Start 09/27/16 at 09:00 Collagenase (Santyl) 1 applic PRN PRN TOP SOILED OR DISLODGED DRESSING; Start 09/27/16 at 05:00 Lansoprazole (Prevacid) 30 mg DAILY@06 GTB Last administered on 11/01/16 05:41 ; Admin Dose 30 MG; Start 09/28/16 at 06:00 Cromolyn Sodium (Nasalcrom) 1 spray QID NASAL Last administered on 11/01/16 08 :28; Admin Dose 1 SPRAY; Start 09/29/16 at 11:02 Phenol (Cepastat Lozenge) 1 lozenge Q2H PRN MT SORE THROAT Last administered on 10/02/16 12:48; Admin Dose 1 LOZENGE; Start 10/01/16 at 19:00 IV Flush (NS 10 ml) 10 ml PRN PRN IV IV PROTOCOL Last administered on 13:11; Admin Dose 10 ML; Start 10/02/16 at 19:00 Lactobacillus Acidophilus (Florajen3 Capsule) 1 each TID PO Last administered on 11/01/16 08:28; Admin Dose 1 EACH; Start 10/03/16 at 21:00 Hydromorphone HCl (Dilaudid) 0.5 mg Q4H PRN IV PAIN Last administered on 10:35; Admin Dose 0.5 MG; Start 10/06/16 at 18:30 Promethazine HCl/ Codeine (Phenergan/ Codeine) 10 ml BID PRN PO COUGH Last administered on 10/31/16 20:58; Admin Dose 10 ML; Start 10/07/16 at 20:30 Morphine Sulfate (Ms Contin (Er)) 60 mg Q6 PO Last administered on 10/21/16 12: 28; Admin Dose 60 MG; Start 10/09/16 at 12:00; Status Future Hold Potassium Chloride 20 meq 20 meq DAILY GTB Last administered on 11/01/16 08:28 ; Admin Dose 20 MEQ; Start 10/30/16 at 12:00 Meropenem (Merrem 500 Mg/ 100 ml (Pmx)) 100 ml @ 200 mls/hr Q8 IVPB ; Start at 14:00 Sodium Chloride (Nacl) 1 gm BID PO ; Start 11/01/16 at 21:00 RUBIN MAYEN NP November 01, 2016 14:28
[2016-11-01] MEDS: MEROPENEM 500 MG/100 ML (PMX) 100 ML IVPB SCH ×2 (14:54→21:31)
[2016-11-01 19:50] VITALS: BP 112/77; RESP 18
[2016-11-01] MEDS: ATORVASTATIN 20 MG TAB PO SCH (21:33)
[2016-11-02] MEDS: ZOLPIDEM 5 MG TAB PO PRN (00:22)
[2016-11-02] MEDS: CEPASTAT LOZENGE MT PRN (01:02)
[2016-11-02] MEDS: HYDROmorphONE 1 MG/ML SYG IV PRN ×5 (03:44→21:01)
[2016-11-02] MEDS: MEROPENEM 500 MG/100 ML (PMX) 100 ML IVPB SCH (05:38)
[2016-11-02] MEDS: LANSOPRAZOLE 30 MG CAP GTB SCH (05:39)
[2016-11-02 07:40] VITALS: BP 103/71; RESP 18
[2016-11-02] MEDS: LEVOTHYROXINE 125 MCG TAB PO SCH (08:05)
[2016-11-02] MEDS: ASCORBIC ACID 500 MG TAB PO SCH ×2 (08:06→21:01)
[2016-11-02] MEDS: L ACIDOPHIL/B LACTIS/B LONGUM CAPSULE PO SCH ×3 (08:06→21:00)
[2016-11-02] MEDS: POTASSIUM CHLORIDE 20 MEQ POWDER FOR ORAL SOLN GTB SCH (08:06)
[2016-11-02] MEDS: SODIUM CHLORIDE 1 GM TAB PO SCH ×2 (08:06→21:01)
[2016-11-02] MEDS: DULOXETINE 20 MG CAP DR PO SCH (08:06)
[2016-11-02] MEDS: CROMOLYN 4% 26ML NAS INH NASAL SCH ×4 (08:08→21:00)
[2016-11-02] MEDS: COLLAGENASE 30 GM TUBE TOP SCH (09:00)
[2016-11-02] MEDS: DIAZEPAM 5 MG TAB PO SCH (09:24)
[2016-11-02] MEDS: TRIMETHOPRIM/SULFAMETHOX (DS) TAB PO SCH ×2 (12:15→21:01)
--- NOTE | 2016-11-02 13:51 | CONS ---
Date/Time of Note Date/Time of Note DATE: 11/02/16 TIME: 13:49 Assessment/Plan Assessment/Plan Additional Assessment/Plan SIRS Intermittent hypotension Diastolic congestive heart failure, compensated Pulmonary hypertension Preserved ejection fraction Tricuspid valve regurgitation Lung cancer -Blood pressure trend remains stable, would continue to hold antihypertensives at the current time. Maintain potassium above 4.0 and magnesium above 2.0. Consultation Date/Type/Reason Admit Date/Time Sep 26, 2016 at 20:07 Type of Consultation: cv Referring Provider: DRE LOBATO MD 24 HR Interval Summary Free Text/Dictation Denies shortness of breath, dizziness Exam/Review of Systems Vital Signs Vitals Vital Signs Date Time Temp Pulse Resp B/P Pulse Ox O2 Delivery O2 Flow Rate FiO2 11/02/16 07:40 98.4 108 18 103/71 98 11/02/16 05:31 2.0 11/01/16 20:00 Nasal Cannula Intake and Output 11/01/16 11/01/16 11/02/16 15:00 23:00 07:00 Intake Total 1200 ml 1020 ml Output Total 1550 ml 700 ml Balance -350 ml 320 ml Exam Constitutional: alert, frail, oriented Head: normocephalic Respiratory: other (Coarse breath sounds bilaterally, no wheezing) Cardiovascular: other (S1-S2 heard), regular rate and rhythm Gastrointestinal: bowel sounds, non-tender, soft Extremities: other (No edema) Results Result Diagram: 11/01/16 0505 11/01/16 0505 Medications Medications Current Medications Ondansetron HCl (Zofran Inj) 4 mg Q6 PRN IV NAUSEA AND/OR VOMITING; Start 09/26 at 22:30 Acetaminophen (Tylenol Tab) 650 mg Q6H PRN PO PAIN AND OR ELEVATED TEMP Last administered on 10/31/16 20:49; Admin Dose 650 MG; Start 09/26/16 at 23:00 Alprazolam (Xanax) 0.5 mg Q12 PRN PO ANXIETY Last administered on 10/29/16 14: 31; Admin Dose 0.5 MG; Start 09/26/16 at 23:00 Ascorbic Acid (Vitamin C) 500 mg BID PO Last administered on 11/02/16 08:06; Admin Dose 500 MG; Start 09/27/16 at 09:00 Atorvastatin Calcium (Lipitor) 20 mg QHS PO Last administered on 11/01/16 21: 33; Admin Dose 20 MG; Start 09/27/16 at 21:00 Diazepam (Valium) 10 mg DAILY PO Last administered on 11/02/16 09:24; Admin Dose 10 MG; Start 09/27/16 at 09:00 Docusate Sodium (Colace) 100 mg Q12H PRN PO CONSTIPATION; Start 09/26/16 at 23: 00 Duloxetine HCl (Cymbalta) 20 mg DAILY PO Last administered on 11/02/16 08:06; Admin Dose 20 MG; Start 09/27/16 at 09:00 Zolpidem Tartrate (Ambien) 5 mg QHS PRN PO INSOMNIA Last administered on 00:22; Admin Dose 5 MG; Start 09/26/16 at 23:00 Collagenase (Santyl) 1 applic DAILY TOP Last administered on 10/23/16 15:00; Admin Dose 1 APPLIC; Start 09/27/16 at 09:00 Collagenase (Santyl) 1 applic PRN PRN TOP SOILED OR DISLODGED DRESSING; Start 09/27/16 at 05:00 Lansoprazole (Prevacid) 30 mg DAILY@06 GTB Last administered on 11/02/16 05:39 ; Admin Dose 30 MG; Start 09/28/16 at 06:00 Cromolyn Sodium (Nasalcrom) 1 spray QID NASAL Last administered on 11/02/16 12 :16; Admin Dose 1 SPRAY; Start 09/29/16 at 11:02 Phenol (Cepastat Lozenge) 1 lozenge Q2H PRN MT SORE THROAT Last administered on 11/02/16 01:02; Admin Dose 1 LOZENGE; Start 10/01/16 at 19:00 IV Flush (NS 10 ml) 10 ml PRN PRN IV IV PROTOCOL Last administered on 08:08; Admin Dose 10 ML; Start 10/02/16 at 19:00 Lactobacillus Acidophilus (Florajen3 Capsule) 1 each TID PO Last administered on 11/02/16 12:15; Admin Dose 1 EACH; Start 10/03/16 at 21:00 Hydromorphone HCl (Dilaudid) 0.5 mg Q4H PRN IV PAIN Last administered on 12:16; Admin Dose 0.5 MG; Start 10/06/16 at 18:30 Promethazine HCl/ Codeine (Phenergan/ Codeine) 10 ml BID PRN PO COUGH Last administered on 10/31/16 20:58; Admin Dose 10 ML; Start 10/07/16 at 20:30 Morphine Sulfate (Ms Contin (Er)) 60 mg Q6 PO Last administered on 10/21/16 12: 28; Admin Dose 60 MG; Start 10/09/16 at 12:00; Status Future Hold Potassium Chloride (Potassium Chloride Pwd/Soln) 20 meq DAILY GTB Last administered on 11/02/16 08:06; Admin Dose 20 MEQ; Start 10/30/16 at 12:00 Sodium Chloride (Nacl) 1 gm BID PO Last administered on 11/02/16 08:06; Admin Dose 1 GM; Start 11/01/16 at 21:00 Trimethoprim/ Sulfamethoxazole (Bactrim (Ds)) 1 tab BID PO Last administered on 11/02/16 12:15; Admin Dose 1 TAB; Start 11/02/16 at 12:00 Artemio Tipton DO November 02, 2016 13:51
--- NOTE | 2016-11-02 14:00 | CONS ---
Date/Time of Note Date/Time of Note DATE: 11/02/16 TIME: 13:59 Assessment/Plan Assessment/Plan Chief Complaint/Hosp Course SUBJECTIVE: No events overnight, awake, afebrile, looks comfortable INDWELLINGS: PEG, George, PICC line. PHYSICAL EXAMINATION: GENERAL: A cachectic elderly woman who is in no distress. HEENT: Head atraumatic, normocephalic. Sclerae anicteric. Buccal mucosa dry. NECK: Supple. CHEST: Rise symmetrical. Breath sounds clear, diminished to bases. HEART: S1, S2. ABDOMEN: Soft, bowel sounds present. EXTREMITIES: Without cyanosis. ASSESSMENT: 1. Systemic inflammatory response syndrome with persistent leukocytosis possibly secondary to malignancy. 2. Lung cancer. 3. Cachexia. 4. Sacral decubitus==> culture growing multidrug resistant organisms, status post debridement with wound VAC application, wound looks clean per adam Sinclair. 5. History of Clostridium difficile. 6. Hx MRSA colonization==> repeat swab negative 7. Recurrent UTI===> MDR A baumanii PLAN: Clinically unchanged, will change Merrem to Bactrim staff Problems: Consultation Date/Type/Reason Admit Date/Time Sep 26, 2016 at 20:07 Type of Consultation: id Referring Provider: DRE LOBATO MD Exam/Review of Systems Vital Signs Vitals Vital Signs Date Time Temp Pulse Resp B/P Pulse Ox O2 Delivery O2 Flow Rate FiO2 11/02/16 07:40 98.4 108 18 103/71 98 11/02/16 05:31 2.0 11/01/16 20:00 Nasal Cannula Intake and Output 11/01/16 11/01/16 11/02/16 15:00 23:00 07:00 Intake Total 1200 ml 1020 ml Output Total 1550 ml 700 ml Balance -350 ml 320 ml Results Result Diagram: 11/01/16 0505 11/01/16 0505 Medications Medications Current Medications Ondansetron HCl (Zofran Inj) 4 mg Q6 PRN IV NAUSEA AND/OR VOMITING; Start 09/26 at 22:30 Acetaminophen (Tylenol Tab) 650 mg Q6H PRN PO PAIN AND OR ELEVATED TEMP Last administered on 10/31/16t 20:49; Admin Dose 650 MG; Start 09/26/16 at 23:00 Alprazolam (Xanax) 0.5 mg Q12 PRN PO ANXIETY Last administered on 10/29/16 14: 31; Admin Dose 0.5 MG; Start 09/26/16 at 23:00 Ascorbic Acid (Vitamin C) 500 mg BID PO Last administered on 11/02/16 08:06; Admin Dose 500 MG; Start 09/27/16 at 09:00 Atorvastatin Calcium (Lipitor) 20 mg QHS PO Last administered on 11/01/16 21: 33; Admin Dose 20 MG; Start 09/27/16 at 21:00 Diazepam (Valium) 10 mg DAILY PO Last administered on 11/02/16 09:24; Admin Dose 10 MG; Start 09/27/16 at 09:00 Docusate Sodium (Colace) 100 mg Q12H PRN PO CONSTIPATION; Start 09/26/16 at 23: 00 Duloxetine HCl (Cymbalta) 20 mg DAILY PO Last administered on 11/02/16 08:06; Admin Dose 20 MG; Start 09/27/16 at 09:00 Zolpidem Tartrate (Ambien) 5 mg QHS PRN PO INSOMNIA Last administered on 00:22; Admin Dose 5 MG; Start 09/26/16 at 23:00 Collagenase (Santyl) 1 applic DAILY TOP Last administered on 10/23/16 15:00; Admin Dose 1 APPLIC; Start 09/27/16 at 09:00 Collagenase (Santyl) 1 applic PRN PRN TOP SOILED OR DISLODGED DRESSING; Start 09/27/16 at 05:00 Lansoprazole (Prevacid) 30 mg DAILY@06 GTB Last administered on 11/02/16 05:39 ; Admin Dose 30 MG; Start 09/28/16 at 06:00 Cromolyn Sodium (Nasalcrom) 1 spray QID NASAL Last administered on 11/02/16 12 :16; Admin Dose 1 SPRAY; Start 09/29/16 at 11:02 Phenol (Cepastat Lozenge) 1 lozenge Q2H PRN MT SORE THROAT Last administered on 11/02/16 01:02; Admin Dose 1 LOZENGE; Start 10/01/16 at 19:00 IV Flush (NS 10 ml) 10 ml PRN PRN IV IV PROTOCOL Last administered on 08:08; Admin Dose 10 ML; Start 10/02/16 at 19:00 Lactobacillus Acidophilus (Florajen3 Capsule) 1 each TID PO Last administered on 11/02/16 12:15; Admin Dose 1 EACH; Start 10/03/16 at 21:00 Hydromorphone HCl (Dilaudid) 0.5 mg Q4H PRN IV PAIN Last administered on 12:16; Admin Dose 0.5 MG; Start 10/06/16 at 18:30 Promethazine HCl/ Codeine (Phenergan/ Codeine) 10 ml BID PRN PO COUGH Last administered on 10/31/16 20:58; Admin Dose 10 ML; Start 10/07/16 at 20:30 Morphine Sulfate (Ms Contin (Er)) 60 mg Q6 PO Last administered on 10/21/16 12: 28; Admin Dose 60 MG; Start 10/09/16 at 12:00; Status Future Hold Potassium Chloride (Potassium Chloride Pwd/Soln) 20 meq DAILY GTB Last administered on 11/02/16 08:06; Admin Dose 20 MEQ; Start 10/30/16 at 12:00 Sodium Chloride (Nacl) 1 gm BID PO Last administered on 11/02/16 08:06; Admin Dose 1 GM; Start 11/01/16 at 21:00 Trimethoprim/ Sulfamethoxazole (Bactrim (Ds)) 1 tab BID PO Last administered on 11/02/16 12:15; Admin Dose 1 TAB; Start 11/02/16 at 12:00 RUBIN MAYEN NP November 02, 2016 14:00
--- NOTE | 2016-11-02 15:54 | PN ---
Date/Time of Note Date/Time of Note DATE: 11/02/16 TIME: 15:51 Assessment/Plan VTE Prophylaxis VTE Prophylaxis Intervention: other Lines/Catheters IV Catheter Type (from [facility]): [place] Urinary Cath still in place: Yes Reason Cath still needed: urinary retention Assessment/Plan Assessment/Plan - wound- -wound care consult -dietary consult - Recurrent sepsis, resolved. Dr. Coleman is following in infection disease consultation. Status post treatment with antibiotics. - Persistent leukocytosis secondary to multiple wounds and malignancy. - Hyponatremia, Dr. Zapata is following in nephrology consultation. - Polymicrobial urinary tract infection, s/p treatment. - Left lung squamous cell carcinoma. Patient is not a candidate for chemotherapy. - Chronic obstructive pulmonary disease. Continue breathing treatment. - Multiple decubitus ulcers with history of debridement. Status post sacrococcygeal wound debridement on 10/[address] Sinclair, general surgery. continue current wound care, wound VAC. - Methicillin-resistant Staphylococcus aureus nares colonization. - Cachexia. Optimize nutrition. - Dysphagia with G-tube placement. Continue G-tube feeding. Aspiration precaution. - Chronic urinary retention. Continue George catheter. - Hypothyroidism. TSH is within normal limits. Continue Synthroid. - Anemia of chronic disease. Continue to monitor hemoglobin and hematocrit. Blood transfusion as needed. DC planning Further recommendations based on clinical course. Plan of care discussed with Dr. Dozier. Subjective 24 Hr Interval Summary Free Text/Dictation nad, sleeping, easily awakens,wound care team assessing her for new wounds dw staff Constitutional: requiring O2 Eyes: no complaints ENT: no complaints Respiratory: no complaints Cardiovascular: no complaints Gastrointestinal: no complaints Genitourinary: no complaints Musculoskeletal: back pain Skin: no complaints Neurologic: no complaints Endocrine: no complaints Lymphatic: no complaints Exam/Review of Systems Vital Signs Vitals Vital Signs Date Time Temp Pulse Resp B/P Pulse Ox O2 Delivery O2 Flow Rate FiO2 11/02/16 07:40 98.4 108 18 103/71 98 11/02/16 05:31 2.0 11/01/16 20:00 Nasal Cannula Intake and Output 11/01/16 11/01/16 11/02/16 15:00 23:00 07:00 Intake Total 1200 ml 1020 ml Output Total 1550 ml 700 ml Balance -350 ml 320 ml Exam Constitutional: alert, well developed Psych: no complaints Eyes: nl sclera ENMT: nl external ears & nose Neck: non-tender Respiratory: clear to auscultation Cardiovascular: nl pulses Gastrointestinal: non-tender, soft Musculoskeletal: muscle weakness, other Extremities: normal pulses Neurological: confused, nl speech Skin: other Lymph: nontender Results Result Diagram: 11/01/16 0505 11/01/16 0505 Medications Medications Current Medications Ondansetron HCl (Zofran Inj) 4 mg Q6 PRN IV NAUSEA AND/OR VOMITING; Start 09/26 at 22:30 Acetaminophen (Tylenol Tab) 650 mg Q6H PRN PO PAIN AND OR ELEVATED TEMP Last administered on 10/31/16 20:49; Admin Dose 650 MG; Start 09/26/16 at 23:00 Alprazolam (Xanax) 0.5 mg Q12 PRN PO ANXIETY Last administered on 10/29/16 14: 31; Admin Dose 0.5 MG; Start 09/26/16 at 23:00 Ascorbic Acid (Vitamin C) 500 mg BID PO Last administered on 11/02/16 08:06; Admin Dose 500 MG; Start 09/27/16 at 09:00 Atorvastatin Calcium (Lipitor) 20 mg QHS PO Last administered on 11/01/16 21: 33; Admin Dose 20 MG; Start 09/27/16 at 21:00 Diazepam (Valium) 10 mg DAILY PO Last administered on 11/02/16 09:24; Admin Dose 10 MG; Start 09/27/16 at 09:00 Docusate Sodium (Colace) 100 mg Q12H PRN PO CONSTIPATION; Start 09/26/16 at 23: 00 Duloxetine HCl (Cymbalta) 20 mg DAILY PO Last administered on 11/02/16 08:06; Admin Dose 20 MG; Start 09/27/16 at 09:00 Zolpidem Tartrate (Ambien) 5 mg QHS PRN PO INSOMNIA Last administered on 00:22; Admin Dose 5 MG; Start 09/26/16 at 23:00 Collagenase (Santyl) 1 applic DAILY TOP Last administered on 10/23/16 15:00; Admin Dose 1 APPLIC; Start 09/27/16 at 09:00 Collagenase (Santyl) 1 applic PRN PRN TOP SOILED OR DISLODGED DRESSING; Start 09/27/16 at 05:00 Lansoprazole (Prevacid) 30 mg DAILY@06 GTB Last administered on 11/02/16 05:39 ; Admin Dose 30 MG; Start 09/28/16 at 06:00 Cromolyn Sodium (Nasalcrom) 1 spray QID NASAL Last administered on 11/02/16 12 :16; Admin Dose 1 SPRAY; Start 09/29/16 at 11:02 Phenol (Cepastat Lozenge) 1 lozenge Q2H PRN MT SORE THROAT Last administered on 11/02/16 01:02; Admin Dose 1 LOZENGE; Start 10/01/16 at 19:00 IV Flush (NS 10 ml) 10 ml PRN PRN IV IV PROTOCOL Last administered on 08:08; Admin Dose 10 ML; Start 10/02/16 at 19:00 Lactobacillus Acidophilus (Florajen3 Capsule) 1 each TID PO Last administered on 11/02/16 12:15; Admin Dose 1 EACH; Start 10/03/16 at 21:00 Hydromorphone HCl (Dilaudid) 0.5 mg Q4H PRN IV PAIN Last administered on 12:16; Admin Dose 0.5 MG; Start 10/06/16 at 18:30 Promethazine HCl/ Codeine (Phenergan/ Codeine) 10 ml BID PRN PO COUGH Last administered on 10/31/16 20:58; Admin Dose 10 ML; Start 10/07/16 at 20:30 Morphine Sulfate (Ms Contin (Er)) 60 mg Q6 PO Last administered on 10/21/16 12: 28; Admin Dose 60 MG; Start 10/09/16 at 12:00; Status Future Hold Potassium Chloride (Potassium Chloride Pwd/Soln) 20 meq DAILY GTB Last administered on 11/02/16 08:06; Admin Dose 20 MEQ; Start 10/30/16 at 12:00 Sodium Chloride (Nacl) 1 gm BID PO Last administered on 11/02/16 08:06; Admin Dose 1 GM; Start 11/01/16 at 21:00 Trimethoprim/ Sulfamethoxazole (Bactrim (Ds)) 1 tab BID PO Last administered on 11/02/16 12:15; Admin Dose 1 TAB; Start 11/02/16 at 12:00 VIKASH CASTANEDA November 02, 2016 15:54
--- NOTE | 2016-11-02 16:43 | CONS ---
Date/Time of Note Date/Time of Note DATE: 11/02/16 TIME: 16:42 Assessment/Plan Assessment/Plan Additional Assessment/Plan 1. Hyponatremia, multifactorial - pt likey has Component of SAIDH causing hypoantreia, due to acute on chronic pain 2. Status post acute kidney injury on chronic kidney disease due to systemic inflammatory response syndrome. 3. Systemic inflammatory response syndrome. 4. History of recurrent polymicrobial urinary tract infections. 5. History of dementia. 6. History of previous cerebrovascular accident. 7. History of chronic obstructive pulmonary disease, recently had acute respiratory failure secondary to chronic obstructive pulmonary disease exacerbation. 8. History of urinary retention with a chronic George catheter in place. 9. Chronic debility with cachexia. 10. Multiple decubitus ulcers with a history of debridement. 11. History of degenerative joint disease of spine. 12. History of hypertension and hypertensive heart disease with mild to moderate concentric left ventricular hypertrophy and echocardiogram with diastolic dysfunction stage I. PLAN: SAIDH causing hypoantreia, due to acute on chronic pain s/p one dose of tolvaptan 15 mg on 10/24/16- Na normal decreased Na Chloride tablet 1 gram PO BID yesterday monitor electrolytes will follow up Consultation Date/Type/Reason Admit Date/Time Sep 26, 2016 at 20:07 Type of Consultation: NEPHROLOGY Referring Provider: DRE LOBATO MD 24 HR Interval Summary Free Text/Dictation NO labs today, yesterday labs were normal, BP stable Exam/Review of Systems Vital Signs Vitals Vital Signs Date Time Temp Pulse Resp B/P Pulse Ox O2 Delivery O2 Flow Rate FiO2 11/02/16 08:00 Nasal Cannula 2.0 11/02/16 07:40 98.4 108 18 103/71 98 Intake and Output 11/01/16 11/01/16 11/02/16 15:00 23:00 07:00 Intake Total 1200 ml 1020 ml Output Total 1550 ml 700 ml Balance -350 ml 320 ml Results Result Diagram: 11/01/16 0505 11/01/16 0505 Medications Medications Current Medications Ondansetron HCl (Zofran Inj) 4 mg Q6 PRN IV NAUSEA AND/OR VOMITING; Start 09/26 at 22:30 Acetaminophen (Tylenol Tab) 650 mg Q6H PRN PO PAIN AND OR ELEVATED TEMP Last administered on 10/31/16t 20:49; Admin Dose 650 MG; Start 09/26/16 at 23:00 Alprazolam (Xanax) 0.5 mg Q12 PRN PO ANXIETY Last administered on 10/29/16 14: 31; Admin Dose 0.5 MG; Start 09/26/16 at 23:00 Ascorbic Acid (Vitamin C) 500 mg BID PO Last administered on 11/02/16 08:06; Admin Dose 500 MG; Start 09/27/16 at 09:00 Atorvastatin Calcium (Lipitor) 20 mg QHS PO Last administered on 11/01/16 21: 33; Admin Dose 20 MG; Start 09/27/16 at 21:00 Diazepam (Valium) 10 mg DAILY PO Last administered on 11/02/16 09:24; Admin Dose 10 MG; Start 09/27/16 at 09:00 Docusate Sodium (Colace) 100 mg Q12H PRN PO CONSTIPATION; Start 09/26/16 at 23: 00 Duloxetine HCl (Cymbalta) 20 mg DAILY PO Last administered on 11/02/16 08:06; Admin Dose 20 MG; Start 09/27/16 at 09:00 Zolpidem Tartrate (Ambien) 5 mg QHS PRN PO INSOMNIA Last administered on 00:22; Admin Dose 5 MG; Start 09/26/16 at 23:00 Collagenase (Santyl) 1 applic DAILY TOP Last administered on 10/23/16 15:00; Admin Dose 1 APPLIC; Start 09/27/16 at 09:00 Collagenase (Santyl) 1 applic PRN PRN TOP SOILED OR DISLODGED DRESSING; Start 09/27/16 at 05:00 Lansoprazole (Prevacid) 30 mg DAILY@06 GTB Last administered on 11/02/16 05:39 ; Admin Dose 30 MG; Start 09/28/16 at 06:00 Cromolyn Sodium (Nasalcrom) 1 spray QID NASAL Last administered on 11/02/16 12 :16; Admin Dose 1 SPRAY; Start 09/29/16 at 11:02 Phenol (Cepastat Lozenge) 1 lozenge Q2H PRN MT SORE THROAT Last administered on 11/02/16 01:02; Admin Dose 1 LOZENGE; Start 10/01/16 at 19:00 IV Flush (NS 10 ml) 10 ml PRN PRN IV IV PROTOCOL Last administered on 08:08; Admin Dose 10 ML; Start 10/02/16 at 19:00 Lactobacillus Acidophilus (Florajen3 Capsule) 1 each TID PO Last administered on 11/02/16 12:15; Admin Dose 1 EACH; Start 10/03/16 at 21:00 Hydromorphone HCl (Dilaudid) 0.5 mg Q4H PRN IV PAIN Last administered on 12:16; Admin Dose 0.5 MG; Start 10/06/16 at 18:30 Promethazine HCl/ Codeine (Phenergan/ Codeine) 10 ml BID PRN PO COUGH Last administered on 10/31/16 20:58; Admin Dose 10 ML; Start 10/07/16 at 20:30 Morphine Sulfate (Ms Contin (Er)) 60 mg Q6 PO Last administered on 10/21/16 12: 28; Admin Dose 60 MG; Start 10/09/16 at 12:00; Status Future Hold Potassium Chloride (Potassium Chloride Pwd/Soln) 20 meq DAILY GTB Last administered on 11/02/16 08:06; Admin Dose 20 MEQ; Start 10/30/16 at 12:00 Sodium Chloride (Nacl) 1 gm BID PO Last administered on 11/02/16 08:06; Admin Dose 1 GM; Start 11/01/16 at 21:00 Trimethoprim/ Sulfamethoxazole (Bactrim (Ds)) 1 tab BID PO Last administered on 11/02/16 12:15; Admin Dose 1 TAB; Start 11/02/16 at 12:00 DIONNE SAUCEDA MD November 02, 2016 16:43
[2016-11-02 20:42] VITALS: BP 110/71; RESP 19
[2016-11-02] MEDS: ATORVASTATIN 20 MG TAB PO SCH (21:01)
[2016-11-03] MEDS: HYDROmorphONE 1 MG/ML SYG IV PRN ×4 (01:45→18:29)
[2016-11-03 05:29] LABS: ADD SCAN DIFF NO
[2016-11-03 05:33] LABS: ABNORMAL IP MESSAGE 1; BASOPHIL # 0.1 10^3/ul (0.0-0.1); BASOPHILS % 0.4 % (0.0-2.0); EOSINOPHILS # 0.4 10^3/ul (0.0-0.5); HEMATOCRIT 28.9 % (37.0-47.0); HEMOGLOBIN 8.8 g/dl (12.0-16.0); LYMPHOCYTES # 2.3 10^3/ul (0.8-2.9); LYMPHOCYTES % 12.5 % (15.0-51.0); MEAN CORPUSCULAR HEMOGLOBIN 25.8 pg (29.0-33.0); MEAN CORPUSCULAR HGB CONC 30.4 g/dl (32.0-37.0); MEAN CORPUSCULAR VOLUME 84.8 fl (82.0-101.0); MEAN PLATELET VOLUME 8.9 fl (7.4-10.4); MONOCYTE # 1.6 10^3/ul (0.3-0.9); MONOCYTES % 8.8 % (0.0-11.0); NEUTROPHIL # 14.1 10^3/ul (1.6-7.5); NEUTROPHILS % 75.7 % (39.0-77.0); PLATELET COUNT 464 10^3/UL (140-415); RED BLOOD COUNT 3.41 10^6/ul (4.20-5.40); RED CELL DISTRIBUTION WIDTH 17.7 % (11.5-14.5); WHITE BLOOD COUNT 18.6 10^3/ul (4.8-10.8)
[2016-11-03 05:52] LABS: CREATININE 0.46 mg/dl (0.44-1.00); POTASSIUM 3.6 mmol/L (3.5-5.1)
[2016-11-03] MEDS: LANSOPRAZOLE 30 MG CAP GTB SCH (05:58)
[2016-11-03] MEDS: LEVOTHYROXINE 125 MCG TAB PO SCH (06:00)
[2016-11-03 08:02] VITALS: BP 111/72; RESP 17
[2016-11-03] MEDS: DULOXETINE 20 MG CAP DR PO SCH (09:00)
[2016-11-03] MEDS: DIAZEPAM 5 MG TAB PO SCH (09:56)
[2016-11-03] MEDS: ASCORBIC ACID 500 MG TAB PO SCH ×2 (09:56→20:55)
[2016-11-03] MEDS: POTASSIUM CHLORIDE 20 MEQ POWDER FOR ORAL SOLN GTB SCH (09:56)
[2016-11-03] MEDS: SODIUM CHLORIDE 1 GM TAB PO SCH ×2 (09:56→20:55)
[2016-11-03] MEDS: L ACIDOPHIL/B LACTIS/B LONGUM CAPSULE PO SCH ×3 (09:56→20:55)
[2016-11-03] MEDS: TRIMETHOPRIM/SULFAMETHOX (DS) TAB PO SCH ×2 (09:56→20:55)
[2016-11-03] MEDS: CROMOLYN 4% 26ML NAS INH NASAL SCH ×4 (09:57→20:55)
[2016-11-03] MEDS: COLLAGENASE 30 GM TUBE TOP SCH ×2 (09:57→09:58)
--- NOTE | 2016-11-03 10:07 | CONS ---
Date/Time of Note Date/Time of Note DATE: 11/03/16 TIME: 10:06 Assessment/Plan Assessment/Plan Additional Assessment/Plan SIRS Intermittent hypotension Diastolic congestive heart failure, compensated Pulmonary hypertension Preserved ejection fraction Tricuspid valve regurgitation Lung cancer -Blood pressure trend remains stable, would continue to hold antihypertensives at the current time. Maintain potassium above 4.0 and magnesium above 2.0. Consultation Date/Type/Reason Admit Date/Time Sep 26, 2016 at 20:07 Type of Consultation: cv Referring Provider: DRE LOBATO MD 24 HR Interval Summary Free Text/Dictation Denies shortness of breath, chest pain Exam/Review of Systems Vital Signs Vitals Vital Signs Date Time Temp Pulse Resp B/P Pulse Ox O2 Delivery O2 Flow Rate FiO2 11/03/16 08:02 99.6 117 17 111/72 93 11/03/16 02:04 2.0 11/02/16 20:00 Nasal Cannula Intake and Output 11/02/16 11/02/16 11/03/16 15:00 23:00 07:00 Intake Total 1100 ml 1060 ml Output Total 700 ml 800 ml Balance 400 ml 260 ml Exam Constitutional: alert, frail, oriented Head: normocephalic Respiratory: other (Coarse breath sounds bilaterally, no wheezing) Cardiovascular: other (S1-S2 heard), regular rate and rhythm Gastrointestinal: bowel sounds, non-tender, soft Extremities: other (No edema) Results Result Diagram: 11/03/16 0425 11/03/16 0425 Results 24 hrs Laboratory Tests Test 11/03/16 04:25 White Blood Count 18.6 H Red Blood Count 3.41 L Hemoglobin 8.8 L Hematocrit 28.9 L Mean Corpuscular Volume 84.8 Mean Corpuscular Hemoglobin 25.8 L Mean Corpuscular Hemoglobin Concent 30.4 L Red Cell Distribution Width 17.7 H Platelet Count 464 H Mean Platelet Volume 8.9 Neutrophils % 75.7 Lymphocytes % 12.5 L Monocytes % 8.8 Eosinophils % 2.0 Basophils % 0.4 Nucleated Red Blood Cells % 0.0 Neutrophils # 14.1 H Lymphocytes # 2.3 Monocytes # 1.6 H Eosinophils # 0.4 Basophils # 0.1 Nucleated Red Blood Cells # 0.0 Sodium Level 137 Potassium Level 3.6 Chloride Level 100 Carbon Dioxide Level 27 Anion Gap 14 Blood Urea Nitrogen 19 Creatinine 0.46 Glucose Level 140 Calcium Level 9.0 Medications Medications Current Medications Ondansetron HCl (Zofran Inj) 4 mg Q6 PRN IV NAUSEA AND/OR VOMITING; Start 09/26 at 22:30 Acetaminophen (Tylenol Tab) 650 mg Q6H PRN PO PAIN AND OR ELEVATED TEMP Last administered on 10/31/16 20:49; Admin Dose 650 MG; Start 09/26/16 at 23:00 Alprazolam (Xanax) 0.5 mg Q12 PRN PO ANXIETY Last administered on 10/29/16 14: 31; Admin Dose 0.5 MG; Start 09/26/16 at 23:00 Ascorbic Acid (Vitamin C) 500 mg BID PO Last administered on 11/03/16 09:56; Admin Dose 500 MG; Start 09/27/16 at 09:00 Atorvastatin Calcium (Lipitor) 20 mg QHS PO Last administered on 11/02/16 21: 01; Admin Dose 20 MG; Start 09/27/16 at 21:00 Diazepam (Valium) 10 mg DAILY PO Last administered on 11/03/16 09:56; Admin Dose 10 MG; Start 09/27/16 at 09:00 Docusate Sodium (Colace) 100 mg Q12H PRN PO CONSTIPATION; Start 09/26/16 at 23: 00 Duloxetine HCl (Cymbalta) 20 mg DAILY PO Last administered on 11/02/16 08:06; Admin Dose 20 MG; Start 09/27/16 at 09:00 Zolpidem Tartrate (Ambien) 5 mg QHS PRN PO INSOMNIA Last administered on 00:22; Admin Dose 5 MG; Start 09/26/16 at 23:00 Collagenase (Santyl) 1 applic DAILY TOP Last administered on 10/23/16 15:00; Admin Dose 1 APPLIC; Start 09/27/16 at 09:00 Collagenase (Santyl) 1 applic PRN PRN TOP SOILED OR DISLODGED DRESSING; Start 09/27/16 at 05:00 Lansoprazole (Prevacid) 30 mg DAILY@06 GTB Last administered on 11/03/16 05:58 ; Admin Dose 30 MG; Start 09/28/16 at 06:00 Cromolyn Sodium (Nasalcrom) 1 spray QID NASAL Last administered on 11/03/16 09 :57; Admin Dose 1 SPRAY; Start 09/29/16 at 11:02 Phenol (Cepastat Lozenge) 1 lozenge Q2H PRN MT SORE THROAT Last administered on 11/02/16 01:02; Admin Dose 1 LOZENGE; Start 10/01/16 at 19:00 IV Flush (NS 10 ml) 10 ml PRN PRN IV IV PROTOCOL Last administered on 08:08; Admin Dose 10 ML; Start 10/02/16 at 19:00 Lactobacillus Acidophilus (Florajen3 Capsule) 1 each TID PO Last administered on 11/03/16 09:56; Admin Dose 1 EACH; Start 10/03/16 at 21:00 Hydromorphone HCl (Dilaudid) 0.5 mg Q4H PRN IV PAIN Last administered on 05:58; Admin Dose 0.5 MG; Start 10/06/16 at 18:30 Promethazine HCl/ Codeine (Phenergan/ Codeine) 10 ml BID PRN PO COUGH Last administered on 10/31/16 20:58; Admin Dose 10 ML; Start 10/07/16 at 20:30 Morphine Sulfate (Ms Contin (Er)) 60 mg Q6 PO Last administered on 10/21/16 12: 28; Admin Dose 60 MG; Start 10/09/16 at 12:00; Status Future Hold Potassium Chloride (Potassium Chloride Pwd/Soln) 20 meq DAILY GTB Last administered on 11/03/16 09:56; Admin Dose 20 MEQ; Start 10/30/16 at 12:00 Sodium Chloride (Nacl) 1 gm BID PO Last administered on 11/03/16 09:56; Admin Dose 1 GM; Start 11/01/16 at 21:00 Trimethoprim/ Sulfamethoxazole (Bactrim (Ds)) 1 tab BID PO Last administered on 11/03/16 09:56; Admin Dose 1 TAB; Start 11/02/16 at 12:00 Artemio Tipton DO November 03, 2016 10:07
--- NOTE | 2016-11-03 17:59 | PN ---
Date/Time of Note Date/Time of Note DATE: 11/03/16 TIME: 17:55 Assessment/Plan VTE Prophylaxis VTE Prophylaxis Intervention: SCD's Lines/Catheters IV C[facility]ter Type ([facility] PICC Line Central line still needed: Yes Urinary Cath still in place: Yes Reason Cath still needed: urinary retention Assessment/Plan Chief Complaint/Hosp Course ASSESSMENT AND PLAN: - Recurrent sepsis, resolved. Dr. Coleman is following in infection disease consultation. Status post treatment with antibiotics. - Persistent leukocytosis secondary to multiple wounds and malignancy. - Hyponatremia, resolved. Dr. Zapata is following in nephrology consultation. - Polymicrobial urinary tract infection, patient is currently on Bactrim. - Left lung squamous cell carcinoma. Patient is not a candidate for chemotherapy. - Chronic obstructive pulmonary disease. Continue breathing treatment. - Multiple decubitus ulcers with history of debridement. Status post sacrococcygeal wound debridement on 10/[address] Sinclair, general surgery. continue current wound care, wound VAC. - Methicillin-resistant Staphylococcus aureus nares colonization. - Cachexia. Optimize nutrition. - Dysphagia with G-tube placement. Continue G-tube feeding. Aspiration precaution. - Chronic urinary retention. Continue George catheter. - Hypothyroidism. TSH is within normal limits. Continue Synthroid. - Anemia of chronic disease. Continue to monitor hemoglobin and hematocrit. Blood transfusion as needed. Further recommendations based on clinical course. Plan of care discussed with Dr. Dozier. Problems: Subjective 24 Hr Interval Summary Free Text/Dictation Patient restarted on antibiotics for UTI, was increased leukocytosis today. Exam/Review of Systems Vital Signs Vitals Vital Signs Date Time Temp Pulse Resp B/P Pulse Ox O2 Delivery O2 Flow Rate FiO2 11/03/16 16:07 2.0 11/03/16 11:30 Nasal Cannula 11/03/16 09:45 98.3 11/03/16 08:02 117 17 111/72 93 Intake and Output 11/02/16 11/02/16 11/03/16 15:00 23:00 07:00 Intake Total 1100 ml 1060 ml Output Total 700 ml 800 ml Balance 400 ml 260 ml Exam Constitutional: alert, oriented Psych: no complaints Head: atraumatic, normocephalic Eyes: nl conjunctiva ENMT: nl external ears & nose Neck: non-tender, supple Respiratory: clear to auscultation, normal air movement Cardiovascular: nl pulses, regular rate and rhythm Gastrointestinal: non-tender, other (G-tube), soft Musculoskeletal: nl extremities to inspection Extremities: normal pulses Neurological: DOG TRAINER II-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 Results Result Diagram: 11/03/165 11/03/16 0425 Results 24 hrs Laboratory Tests Test 11/03/16 04:25 White Blood Count 18.6 H Red Blood Count 3.41 L Hemoglobin 8.8 L Hematocrit 28.9 L Mean Corpuscular Volume 84.8 Mean Corpuscular Hemoglobin 25.8 L Mean Corpuscular Hemoglobin Concent 30.4 L Red Cell Distribution Width 17.7 H Platelet Count 464 H Mean Platelet Volume 8.9 Neutrophils % 75.7 Lymphocytes % 12.5 L Monocytes % 8.8 Eosinophils % 2.0 Basophils % 0.4 Nucleated Red Blood Cells % 0.0 Neutrophils # 14.1 H Lymphocytes # 2.3 Monocytes # 1.6 H Eosinophils # 0.4 Basophils # 0.1 Nucleated Red Blood Cells # 0.0 Sodium Level 137 Potassium Level 3.6 Chloride Level 100 Carbon Dioxide Level 27 Anion Gap 14 Blood Urea Nitrogen 19 Creatinine 0.46 Glucose Level 140 Calcium Level 9.0 Medications Medications Current Medications Ondansetron HCl (Zofran Inj) 4 mg Q6 PRN IV NAUSEA AND/OR VOMITING; Start 09/26 at 22:30 Acetaminophen (Tylenol Tab) 650 mg Q6H PRN PO PAIN AND OR ELEVATED TEMP Last administered on 10/31/16 20:49; Admin Dose 650 MG; Start 09/26/16 at 23:00 Alprazolam (Xanax) 0.5 mg Q12 PRN PO ANXIETY Last administered on 10/29/16 14: 31; Admin Dose 0.5 MG; Start 09/26/16 at 23:00 Ascorbic Acid (Vitamin C) 500 mg BID PO Last administered on 11/03/16 09:56; Admin Dose 500 MG; Start 09/27/16 at 09:00 Atorvastatin Calcium (Lipitor) 20 mg QHS PO Last administered on 11/02/16 21: 01; Admin Dose 20 MG; Start 09/27/16 at 21:00 Diazepam (Valium) 10 mg DAILY PO Last administered on 11/03/16 09:56; Admin Dose 10 MG; Start 09/27/16 at 09:00 Docusate Sodium (Colace) 100 mg Q12H PRN PO CONSTIPATION; Start 09/26/16 at 23: 00 Duloxetine HCl (Cymbalta) 20 mg DAILY PO Last administered on 11/02/16 08:06; Admin Dose 20 MG; Start 09/27/16 at 09:00 Zolpidem Tartrate (Ambien) 5 mg QHS PRN PO INSOMNIA Last administered on 00:22; Admin Dose 5 MG; Start 09/26/16 at 23:00 Collagenase (Santyl) 1 applic DAILY TOP Last administered on 10/23/16 15:00; Admin Dose 1 APPLIC; Start 09/27/16 at 09:00 Collagenase (Santyl) 1 applic PRN PRN TOP SOILED OR DISLODGED DRESSING; Start 09/27/16 at 05:00 Lansoprazole (Prevacid) 30 mg DAILY@06 GTB Last administered on 11/03/16 05:58 ; Admin Dose 30 MG; Start 09/28/16 at 06:00 Cromolyn Sodium (Nasalcrom) 1 spray QID NASAL Last administered on 11/03/16 14 :24; Admin Dose 1 SPRAY; Start 09/29/16 at 11:02 Phenol (Cepastat Lozenge) 1 lozenge Q2H PRN MT SORE THROAT Last administered on 11/02/16 01:02; Admin Dose 1 LOZENGE; Start 10/01/16 at 19:00 IV Flush (NS 10 ml) 10 ml PRN PRN IV IV PROTOCOL Last administered on 08:08; Admin Dose 10 ML; Start 10/02/16 at 19:00 Lactobacillus Acidophilus (Florajen3 Capsule) 1 each TID PO Last administered on 11/03/16 14:24; Admin Dose 1 EACH; Start 10/03/16 at 21:00 Hydromorphone HCl (Dilaudid) 0.5 mg Q4H PRN IV PAIN Last administered on 14:24; Admin Dose 0.5 MG; Start 10/06/16 at 18:30 Promethazine HCl/ Codeine (Phenergan/ Codeine) 10 ml BID PRN PO COUGH Last administered on 10/31/16 20:58; Admin Dose 10 ML; Start 10/07/16 at 20:30 Morphine Sulfate (Ms Contin (Er)) 60 mg Q6 PO Last administered on 10/21/16 12: 28; Admin Dose 60 MG; Start 10/09/16 at 12:00; Status Future Hold Potassium Chloride (Potassium Chloride Pwd/Soln) 20 meq DAILY GTB Last administered on 11/03/16 09:56; Admin Dose 20 MEQ; Start 10/30/16 at 12:00 Sodium Chloride (Nacl) 1 gm BID PO Last administered on 11/03/16 09:56; Admin Dose 1 GM; Start 11/01/16 at 21:00 Trimethoprim/ Sulfamethoxazole (Bactrim (Ds)) 1 tab BID PO Last administered on 11/03/16 09:56; Admin Dose 1 TAB; Start 11/02/16 at 12:00 REBECCA ISLAS November 03, 2016 17:59
--- NOTE | 2016-11-03 18:39 | CONS ---
Date/Time of Note Date/Time of Note DATE: 11/03/16 TIME: 18:38 Assessment/Plan Assessment/Plan Chief Complaint/Hosp Course SUBJECTIVE: No events overnight, very weak, afebrile INDWELLINGS: PEG, George, PICC line. Abx: Bactrim PHYSICAL EXAMINATION: GENERAL: A cachectic elderly woman who is in no distress. HEENT: Head atraumatic, normocephalic. Sclerae anicteric. Buccal mucosa dry. NECK: Supple. CHEST: Rise symmetrical. Breath sounds clear, diminished to bases. HEART: S1, S2. ABDOMEN: Soft, bowel sounds present. EXTREMITIES: Without cyanosis. ASSESSMENT: 1. Systemic inflammatory response syndrome with persistent leukocytosis possibly secondary to malignancy. 2. Lung cancer. 3. Cachexia. 4. Sacral decubitus==> culture growing multidrug resistant organisms, status post debridement with wound VAC application, wound looks clean per dw Dr Sinclair. 5. History of Clostridium difficile. 6. Hx MRSA colonization==> repeat swab negative 7. Recurrent UTI===> MDR A baumanii PLAN: Clinically unchanged, continue abx, supportive care DW staff Problems: Consultation Date/Type/Reason Admit Date/Time Sep 26, 2016 at 20:07 Type of Consultation: id Referring Provider: DRE LOBATO MD Exam/Review of Systems Vital Signs Vitals Vital Signs Date Time Temp Pulse Resp B/P Pulse Ox O2 Delivery O2 Flow Rate FiO2 11/03/16 16:07 2.0 11/03/16 11:30 Nasal Cannula 11/03/16 09:45 98.3 11/03/16 08:02 117 17 111/72 93 Intake and Output 11/02/16 11/02/16 11/03/16 15:00 23:00 07:00 Intake Total 1100 ml 1060 ml Output Total 700 ml 800 ml Balance 400 ml 260 ml Results Result Diagram: 11/03/16 0425 11/03/16 0425 Results 24 hrs Laboratory Tests Test 11/03/16 04:25 White Blood Count 18.6 H Red Blood Count 3.41 L Hemoglobin 8.8 L Hematocrit 28.9 L Mean Corpuscular Volume 84.8 Mean Corpuscular Hemoglobin 25.8 L Mean Corpuscular Hemoglobin Concent 30.4 L Red Cell Distribution Width 17.7 H Platelet Count 464 H Mean Platelet Volume 8.9 Neutrophils % 75.7 Lymphocytes % 12.5 L Monocytes % 8.8 Eosinophils % 2.0 Basophils % 0.4 Nucleated Red Blood Cells % 0.0 Neutrophils # 14.1 H Lymphocytes # 2.3 Monocytes # 1.6 H Eosinophils # 0.4 Basophils # 0.1 Nucleated Red Blood Cells # 0.0 Sodium Level 137 Potassium Level 3.6 Chloride Level 100 Carbon Dioxide Level 27 Anion Gap 14 Blood Urea Nitrogen 19 Creatinine 0.46 Glucose Level 140 Calcium Level 9.0 Medications Medications Current Medications Ondansetron HCl (Zofran Inj) 4 mg Q6 PRN IV NAUSEA AND/OR VOMITING; Start 09/26 at 22:30 Acetaminophen (Tylenol Tab) 650 mg Q6H PRN PO PAIN AND OR ELEVATED TEMP Last administered on 10/31/16 20:49; Admin Dose 650 MG; Start 09/26/16 at 23:00 Alprazolam (Xanax) 0.5 mg Q12 PRN PO ANXIETY Last administered on 10/29/16 14: 31; Admin Dose 0.5 MG; Start 09/26/16 at 23:00 Ascorbic Acid (Vitamin C) 500 mg BID PO Last administered on 11/03/16 09:56; Admin Dose 500 MG; Start 09/27/16 at 09:00 Atorvastatin Calcium (Lipitor) 20 mg QHS PO Last administered on 11/02/16 21: 01; Admin Dose 20 MG; Start 09/27/16 at 21:00 Diazepam (Valium) 10 mg DAILY PO Last administered on 11/03/16 09:56; Admin Dose 10 MG; Start 09/27/16 at 09:00 Docusate Sodium (Colace) 100 mg Q12H PRN PO CONSTIPATION; Start 09/26/16 at 23: 00 Duloxetine HCl (Cymbalta) 20 mg DAILY PO Last administered on 11/02/16 08:06; Admin Dose 20 MG; Start 09/27/16 at 09:00 Zolpidem Tartrate (Ambien) 5 mg QHS PRN PO INSOMNIA Last administered on 00:22; Admin Dose 5 MG; Start 09/26/16 at 23:00 Collagenase (Santyl) 1 applic DAILY TOP Last administered on 10/23/16 15:00; Admin Dose 1 APPLIC; Start 09/27/16 at 09:00 Collagenase (Santyl) 1 applic PRN PRN TOP SOILED OR DISLODGED DRESSING; Start 09/27/16 at 05:00 Lansoprazole (Prevacid) 30 mg DAILY@06 GTB Last administered on 11/03/16 05:58 ; Admin Dose 30 MG; Start 09/28/16 at 06:00 Cromolyn Sodium (Nasalcrom) 1 spray QID NASAL Last administered on 11/03/16 18 :06; Admin Dose 1 SPRAY; Start 09/29/16 at 11:02 Phenol (Cepastat Lozenge) 1 lozenge Q2H PRN MT SORE THROAT Last administered on 11/02/16 01:02; Admin Dose 1 LOZENGE; Start 10/01/16 at 19:00 IV Flush (NS 10 ml) 10 ml PRN PRN IV IV PROTOCOL Last administered on 08:08; Admin Dose 10 ML; Start 10/02/16 at 19:00 Lactobacillus Acidophilus (Florajen3 Capsule) 1 each TID PO Last administered on 11/03/16 14:24; Admin Dose 1 EACH; Start 10/03/16 at 21:00 Hydromorphone HCl (Dilaudid) 0.5 mg Q4H PRN IV PAIN Last administered on 18:29; Admin Dose 0.5 MG; Start 10/06/16 at 18:30 Promethazine HCl/ Codeine (Phenergan/ Codeine) 10 ml BID PRN PO COUGH Last administered on 10/31/16 20:58; Admin Dose 10 ML; Start 10/07/16 at 20:30 Morphine Sulfate (Ms Contin (Er)) 60 mg Q6 PO Last administered on 10/21/16 12: 28; Admin Dose 60 MG; Start 10/09/16 at 12:00; Status Future Hold Potassium Chloride (Potassium Chloride Pwd/Soln) 20 meq DAILY GTB Last administered on 11/03/16 09:56; Admin Dose 20 MEQ; Start 10/30/16 at 12:00 Sodium Chloride (Nacl) 1 gm BID PO Last administered on 11/03/16 09:56; Admin Dose 1 GM; Start 11/01/16 at 21:00 Trimethoprim/ Sulfamethoxazole (Bactrim (Ds)) 1 tab BID PO Last administered on 11/03/16t 09:56; Admin Dose 1 TAB; Start 11/02/16 at 12:00 RUBIN MAYEN NP November 03, 2016 18:39
--- NOTE | 2016-11-03 19:22 | PN ---
Date/Time of Note Date/Time of Note DATE: 11/01/16 TIME: 19:21 Assessment/Plan Lines/Catheters IV Catheter Type (from Nrs): PICC Line George in Place (from Nrs): Yes Assessment/Plan Chief Complaint/Hosp Course 1. Multiple decubitus ulcers with debris. Sacrococcygeal ulcer s/p exc boris . -Offload -Optimize nutrition -Vitamin C -Local care 2. UTI s/p abx 3. 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 Acute on chronic diastolic heart failure -Judicious fluid management -Cardiac optimization 5. Hypertension -Diet and medication control 6. Chronic urinary retention with George 7. Depression. -Medical management 8. Hypothyroidism by history. -Synthroid 9. Anemia of chronic disease in addition to iron deficiency anemia. -Continue iron supplements. -Transfusion when necessary 10. Chronic pain syndrome. Continue pain management. Thank you Late entry 11/01 Problems: Subjective 24 Hr Interval Summary s/p Excisional boris 10/27. Leukocytosis. No fevers, chills, nausea, vomiting, or abdominal pain. No abnormal vaginal discharge. No bloating. No cough, sz, bloating. No robles/dizzy/visual or neuro changes. Exam/Review of Systems Vital Signs Vitals Vital Signs Date Time Temp Pulse Resp B/P Pulse Ox O2 Delivery O2 Flow Rate FiO2 11/03/16 16:07 2.0 11/03/16 11:30 Nasal Cannula 11/03/16 09:45 98.3 11/03/16 08:02 117 17 111/72 93 Intake and Output 11/02/16 11/02/16 11/03/16 15:00 23:00 07:00 Intake Total 1100 ml 1060 ml Output Total 700 ml 800 ml Balance 400 ml 260 ml Exam Free Text/Dictation GENERAL: Elderly, cachectic, no acute distress. HEENT: Head is atraumatic, normocephalic. Pupils equal, round, reactive to light and accommodation. Oral mucosa is pink and moist. NECK: Supple, no cervical lymphadenopathy LUNGS: Normal respiratory effort CARDIAC: S1 and S2. Irregular ABDOMEN: Flat, soft and nondistended. Nontender. No rebound or guarding. SKIN: Multiple decubitus wounds/ulcers buttock sacrum and right lower extremity EXTREMITIES: No edema. Pulses equal bilaterally, 2+. NEUROLOGICAL: Responsive VASCULAR: Refill is less than 2 seconds Results Result Diagram: 11/03/16 0425 11/03/16 0425 ZAK POSEY MD November 03, 2016 19:22
--- NOTE | 2016-11-03 19:23 | PN ---
Date/Time of Note Date/Time of Note DATE: 11/02/16 TIME: 19:22 Assessment/Plan Lines/Catheters IV Catheter Type (from Nrs): PICC Line George in Place (from Nrs): Yes Assessment/Plan Chief Complaint/Hosp Course 1. Multiple decubitus ulcers with debris. Sacrococcygeal ulcer s/p exc boris . -Offload -Optimize nutrition -Vitamin C -Local care 2. UTI s/p abx 3. 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 Acute on chronic diastolic heart failure -Judicious fluid management -Cardiac optimization 5. Hypertension -Diet and medication control 6. Chronic urinary retention with George 7. Depression. -Medical management 8. Hypothyroidism by history. -Synthroid 9. Anemia of chronic disease in addition to iron deficiency anemia. -Continue iron supplements. -Transfusion when necessary 10. Chronic pain syndrome. Continue pain management. Thank you Late entry 11/02 Problems: Subjective 24 Hr Interval Summary s/p Excisional boris 10/27. Leukocytosis. No fevers, chills, nausea, vomiting, or abdominal pain. No abnormal vaginal discharge. No bloating. No cough, sz, bloating. No robles/dizzy/visual or neuro changes. Exam/Review of Systems Vital Signs Vitals Vital Signs Date Time Temp Pulse Resp B/P Pulse Ox O2 Delivery O2 Flow Rate FiO2 11/03/16 16:07 2.0 11/03/16 11:30 Nasal Cannula 11/03/16 09:45 98.3 11/03/16 08:02 117 17 111/72 93 Intake and Output 11/02/16 11/02/16 11/03/16 15:00 23:00 07:00 Intake Total 1100 ml 1060 ml Output Total 700 ml 800 ml Balance 400 ml 260 ml Exam Free Text/Dictation GENERAL: Elderly, cachectic, no acute distress. HEENT: Head is atraumatic, normocephalic. Pupils equal, round, reactive to light and accommodation. Oral mucosa is pink and moist. NECK: Supple, no cervical lymphadenopathy LUNGS: Normal respiratory effort CARDIAC: S1 and S2. Irregular ABDOMEN: Flat, soft and nondistended. Nontender. No rebound or guarding. SKIN: Multiple decubitus wounds/ulcers buttock sacrum and right lower extremity EXTREMITIES: No edema. Pulses equal bilaterally, 2+. NEUROLOGICAL: Responsive VASCULAR: Refill is less than 2 seconds Results Result Diagram: 11/03/16 0425 11/03/16 0425 ZAK POSEY MD November 03, 2016 19:23
--- NOTE | 2016-11-03 19:24 | PN ---
Date/Time of Note Date/Time of Note DATE: 11/03/16 TIME: 19:23 Assessment/Plan Lines/Catheters IV Catheter Type (from Nrs): PICC Line George in Place (from Nrs): Yes Assessment/Plan Chief Complaint/Hosp Course 1. Multiple decubitus ulcers with debris. Sacrococcygeal ulcer s/p exc boris . -Offload -Optimize nutrition -Vitamin C -Local care 2. UTI s/p abx 3. 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 Acute on chronic diastolic heart failure -Judicious fluid management -Cardiac optimization 5. Hypertension -Diet and medication control 6. Chronic urinary retention with George 7. Depression. -Medical management 8. Hypothyroidism by history. -Synthroid 9. Anemia of chronic disease in addition to iron deficiency anemia. -Continue iron supplements. -Transfusion when necessary 10. Chronic pain syndrome. Continue pain management. Thank you Problems: Subjective 24 Hr Interval Summary Leukocytosis. No fevers, chills, nausea, vomiting, or abdominal pain. No abnormal vaginal discharge. No bloating. No cough, sz, bloating. No robles/dizzy/ visual or neuro changes. Exam/Review of Systems Vital Signs Vitals Vital Signs Date Time Temp Pulse Resp B/P Pulse Ox O2 Delivery O2 Flow Rate FiO2 11/03/16 16:07 2.0 11/03/16 11:30 Nasal Cannula 11/03/16 09:45 98.3 11/03/16 08:02 117 17 111/72 93 Intake and Output 11/02/16 11/02/16 11/03/16 15:00 23:00 07:00 Intake Total 1100 ml 1060 ml Output Total 700 ml 800 ml Balance 400 ml 260 ml Exam Free Text/Dictation GENERAL: Elderly, cachectic, no acute distress. HEENT: Head is atraumatic, normocephalic. Pupils equal, round, reactive to light and accommodation. Oral mucosa is pink and moist. NECK: Supple, no cervical lymphadenopathy LUNGS: Normal respiratory effort CARDIAC: S1 and S2. Irregular ABDOMEN: Flat, soft and nondistended. Nontender. No rebound or guarding. SKIN: Multiple decubitus wounds/ulcers buttock sacrum and right lower extremity EXTREMITIES: No edema. Pulses equal bilaterally, 2+. NEUROLOGICAL: Responsive VASCULAR: Refill is less than 2 seconds Results Result Diagram: 11/03/16 0425 11/03/16 0425 ZAK POSEY MD November 03, 2016 19:23
[2016-11-03] MEDS: ALBUTEROL/IPRATROPIUM (NEB) 3 ML AMP NEB PRN (19:55)
[2016-11-03 20:00] VITALS: BP 90/62; RESP 19
[2016-11-03] MEDS: ATORVASTATIN 20 MG TAB PO SCH (20:55)
[2016-11-03 22:15] VITALS: BP 94/57
[2016-11-03 23:00] VITALS: BP 102/75; PULSE 111
--- NOTE | 2016-11-03 23:10 | CONS ---
Date/Time of Note Date/Time of Note DATE: 11/03/16 TIME: 23:09 Assessment/Plan Assessment/Plan Additional Assessment/Plan 1. Hyponatremia, multifactorial - pt likey has Component of SAIDH causing hypoantreia, due to acute on chronic pain 2. Status post acute kidney injury on chronic kidney disease due to systemic inflammatory response syndrome. 3. Systemic inflammatory response syndrome. 4. History of recurrent polymicrobial urinary tract infections. 5. History of dementia. 6. History of previous cerebrovascular accident. 7. History of chronic obstructive pulmonary disease, recently had acute respiratory failure secondary to chronic obstructive pulmonary disease exacerbation. 8. History of urinary retention with a chronic George catheter in place. 9. Chronic debility with cachexia. 10. Multiple decubitus ulcers with a history of debridement. 11. History of degenerative joint disease of spine. 12. History of hypertension and hypertensive heart disease with mild to moderate concentric left ventricular hypertrophy and echocardiogram with diastolic dysfunction stage I. PLAN: SAIDH causing hypoantreia, due to acute on chronic pain s/p one dose of tolvaptan 15 mg on 10/24/16- Na normal on Na Chloride tablet 1 gram PO BID monitor electrolytes will follow up Consultation Date/Type/Reason Admit Date/Time Sep 26, 2016 at 20:07 Type of Consultation: NEPHROLOGY Referring Provider: DRE LOBATO MD 24 HR Interval Summary Free Text/Dictation Electrolytes improved back to normal, afebrile, Bp stable Exam/Review of Systems Vital Signs Vitals Vital Signs Date Time Temp Pulse Resp B/P Pulse Ox O2 Delivery O2 Flow Rate FiO2 11/03/16 19:55 121 18 98 Nasal Cannula 3.0 11/03/16 09:45 98.3 11/03/16 08:02 111/72 Intake and Output 11/02/16 11/02/16 11/03/16 15:00 23:00 07:00 Intake Total 1100 ml 1060 ml Output Total 700 ml 800 ml Balance 400 ml 260 ml Results Result Diagram: 11/03/16 0425 11/03/16 0425 Results 24 hrs Laboratory Tests Test 11/03/16 04:25 White Blood Count 18.6 H Red Blood Count 3.41 L Hemoglobin 8.8 L Hematocrit 28.9 L Mean Corpuscular Volume 84.8 Mean Corpuscular Hemoglobin 25.8 L Mean Corpuscular Hemoglobin Concent 30.4 L Red Cell Distribution Width 17.7 H Platelet Count 464 H Mean Platelet Volume 8.9 Neutrophils % 75.7 Lymphocytes % 12.5 L Monocytes % 8.8 Eosinophils % 2.0 Basophils % 0.4 Nucleated Red Blood Cells % 0.0 Neutrophils # 14.1 H Lymphocytes # 2.3 Monocytes # 1.6 H Eosinophils # 0.4 Basophils # 0.1 Nucleated Red Blood Cells # 0.0 Sodium Level 137 Potassium Level 3.6 Chloride Level 100 Carbon Dioxide Level 27 Anion Gap 14 Blood Urea Nitrogen 19 Creatinine 0.46 Glucose Level 140 Calcium Level 9.0 Medications Medications Current Medications Ondansetron HCl (Zofran Inj) 4 mg Q6 PRN IV NAUSEA AND/OR VOMITING; Start 09/26 at 22:30 Acetaminophen (Tylenol Tab) 650 mg Q6H PRN PO PAIN AND OR ELEVATED TEMP Last administered on 10/31/16 20:49; Admin Dose 650 MG; Start 09/26/16 at 23:00 Alprazolam (Xanax) 0.5 mg Q12 PRN PO ANXIETY Last administered on 10/29/16 14: 31; Admin Dose 0.5 MG; Start 09/26/16 at 23:00 Ascorbic Acid (Vitamin C) 500 mg BID PO Last administered on 11/03/16 20:55; Admin Dose 500 MG; Start 09/27/16 at 09:00 Atorvastatin Calcium (Lipitor) 20 mg QHS PO Last administered on 11/03/16 20: 55; Admin Dose 20 MG; Start 09/27/16 at 21:00 Diazepam (Valium) 10 mg DAILY PO Last administered on 11/03/16 09:56; Admin Dose 10 MG; Start 09/27/16 at 09:00 Docusate Sodium (Colace) 100 mg Q12H PRN PO CONSTIPATION; Start 09/26/16 at 23: 00 Duloxetine HCl (Cymbalta) 20 mg DAILY PO Last administered on 11/02/16 08:06; Admin Dose 20 MG; Start 09/27/16 at 09:00 Zolpidem Tartrate (Ambien) 5 mg QHS PRN PO INSOMNIA Last administered on 00:22; Admin Dose 5 MG; Start 09/26/16 at 23:00 Collagenase (Santyl) 1 applic DAILY TOP Last administered on 10/23/16 15:00; Admin Dose 1 APPLIC; Start 09/27/16 at 09:00 Collagenase (Santyl) 1 applic PRN PRN TOP SOILED OR DISLODGED DRESSING; Start 09/27/16 at 05:00 Lansoprazole (Prevacid) 30 mg DAILY@06 GTB Last administered on 11/03/16 05:58 ; Admin Dose 30 MG; Start 09/28/16 at 06:00 Cromolyn Sodium (Nasalcrom) 1 spray QID NASAL Last administered on 11/03/16 20 :55; Admin Dose 1 SPRAY; Start 09/29/16 at 11:02 Phenol (Cepastat Lozenge) 1 lozenge Q2H PRN MT SORE THROAT Last administered on 11/02/16 01:02; Admin Dose 1 LOZENGE; Start 10/01/16 at 19:00 IV Flush (NS 10 ml) 10 ml PRN PRN IV IV PROTOCOL Last administered on 08:08; Admin Dose 10 ML; Start 10/02/16 at 19:00 Lactobacillus Acidophilus (Florajen3 Capsule) 1 each TID PO Last administered on 11/03/16 20:55; Admin Dose 1 EACH; Start 10/03/16 at 21:00 Hydromorphone HCl (Dilaudid) 0.5 mg Q4H PRN IV PAIN Last administered on 18:29; Admin Dose 0.5 MG; Start 10/06/16 at 18:30 Promethazine HCl/ Codeine (Phenergan/ Codeine) 10 ml BID PRN PO COUGH Last administered on 10/31/16 20:58; Admin Dose 10 ML; Start 10/07/16 at 20:30 Morphine Sulfate (Ms Contin (Er)) 60 mg Q6 PO Last administered on 10/21/16 12: 28; Admin Dose 60 MG; Start 10/09/16 at 12:00; Status Future Hold Potassium Chloride (Potassium Chloride Pwd/Soln) 20 meq DAILY GTB Last administered on 11/03/16 09:56; Admin Dose 20 MEQ; Start 10/30/16 at 12:00 Sodium Chloride (Nacl) 1 gm BID PO Last administered on 11/03/16 20:55; Admin Dose 1 GM; Start 11/01/16 at 21:00 Trimethoprim/ Sulfamethoxazole (Bactrim (Ds)) 1 tab BID PO Last administered on 11/03/16t 20:55; Admin Dose 1 TAB; Start 11/02/16 at 12:00 DIONNE SAUCEDA MD November 03, 2016 23:09
[2016-11-04] MEDS: HYDROmorphONE 1 MG/ML SYG IV PRN ×5 (03:45→21:30)
[2016-11-04] MEDS: COLLAGENASE 30 GM TUBE TOP SCH (03:47)
[2016-11-04 05:05] LABS: ABNORMAL IP MESSAGE 1; ADD SCAN DIFF NO; BASOPHIL # 0.1 10^3/ul (0.0-0.1); BASOPHILS % 0.5 % (0.0-2.0); EOSINOPHILS # 0.3 10^3/ul (0.0-0.5); EOSINOPHILS % 1.9 % (0.0-7.0); HEMATOCRIT 26.5 % (37.0-47.0); HEMOGLOBIN 8.1 g/dl (12.0-16.0); LYMPHOCYTES # 2.2 10^3/ul (0.8-2.9); LYMPHOCYTES % 12.6 % (15.0-51.0); MEAN CORPUSCULAR HEMOGLOBIN 25.9 pg (29.0-33.0); MEAN CORPUSCULAR HGB CONC 30.6 g/dl (32.0-37.0); MEAN CORPUSCULAR VOLUME 84.7 fl (82.0-101.0); MEAN PLATELET VOLUME 8.7 fl (7.4-10.4); MONOCYTE # 1.6 10^3/ul (0.3-0.9); MONOCYTES % 9.3 % (0.0-11.0); NEUTROPHIL # 12.9 10^3/ul (1.6-7.5); NEUTROPHILS % 74.9 % (39.0-77.0); PLATELET COUNT 416 10^3/UL (140-415); RED BLOOD COUNT 3.13 10^6/ul (4.20-5.40); RED CELL DISTRIBUTION WIDTH 17.7 % (11.5-14.5); WHITE BLOOD COUNT 17.2 10^3/ul (4.8-10.8)
[2016-11-04] MEDS: LANSOPRAZOLE 30 MG CAP GTB SCH (06:04)
[2016-11-04] MEDS: LEVOTHYROXINE 125 MCG TAB PO SCH (06:04)
[2016-11-04 08:07] VITALS: BP 108/56; RESP 18
[2016-11-04] MEDS: L ACIDOPHIL/B LACTIS/B LONGUM CAPSULE PO SCH ×3 (08:52→21:29)
[2016-11-04] MEDS: TRIMETHOPRIM/SULFAMETHOX (DS) TAB PO SCH ×2 (08:52→21:29)
[2016-11-04] MEDS: ASCORBIC ACID 500 MG TAB PO SCH ×2 (08:52→21:29)
[2016-11-04] MEDS: SODIUM CHLORIDE 1 GM TAB PO SCH ×2 (08:52→21:29)
[2016-11-04] MEDS: DIAZEPAM 5 MG TAB PO SCH (08:53)
[2016-11-04] MEDS: POTASSIUM CHLORIDE 20 MEQ POWDER FOR ORAL SOLN GTB SCH (08:53)
[2016-11-04] MEDS: CROMOLYN 4% 26ML NAS INH NASAL SCH ×4 (08:54→21:30)
[2016-11-04] MEDS: DULOXETINE 20 MG CAP DR PO SCH (08:55)
--- NOTE | 2016-11-04 14:05 | CONS ---
Date/Time of Note Date/Time of Note DATE: 11/04/16 TIME: 14:04 Assessment/Plan Assessment/Plan Additional Assessment/Plan 1. Hyponatremia, multifactorial - pt likey has Component of SAIDH causing hypoantreia, due to acute on chronic pain 2. Status post acute kidney injury on chronic kidney disease due to systemic inflammatory response syndrome. 3. Systemic inflammatory response syndrome. 4. History of recurrent polymicrobial urinary tract infections. 5. History of dementia. 6. History of previous cerebrovascular accident. 7. History of chronic obstructive pulmonary disease, recently had acute respiratory failure secondary to chronic obstructive pulmonary disease exacerbation. 8. History of urinary retention with a chronic George catheter in place. 9. Chronic debility with cachexia. 10. Multiple decubitus ulcers with a history of debridement. 11. History of degenerative joint disease of spine. 12. History of hypertension and hypertensive heart disease with mild to moderate concentric left ventricular hypertrophy and echocardiogram with diastolic dysfunction stage I. PLAN: SAIDH causing hypoantreia, due to acute on chronic pain s/p one dose of tolvaptan 15 mg on 10/24/16- Na normal on Na Chloride tablet 1 gram PO BID monitor electrolytes will follow up Consultation Date/Type/Reason Admit Date/Time Sep 26, 2016 at 20:07 Type of Consultation: NEPHROLOGY Referring Provider: DRE LOBATO MD 24 HR Interval Summary Free Text/Dictation Bp stable,no chemistry today Exam/Review of Systems Vital Signs Vitals Vital Signs Date Time Temp Pulse Resp B/P Pulse Ox O2 Delivery O2 Flow Rate FiO2 11/04/16 09:30 Nasal Cannula 2.0 11/04/16 08:07 98.5 80 18 108/56 80 Intake and Output 11/03/16 11/03/16 11/04/16 15:00 23:00 07:00 Intake Total 1060 ml 820 ml Output Total 600 ml 700 ml Balance 460 ml 120 ml Results Result Diagram: 11/04/16 0445 11/03/16 0425 Results 24 hrs Laboratory Tests Test 11/04/16 04:45 White Blood Count 17.2 H Red Blood Count 3.13 L Hemoglobin 8.1 L Hematocrit 26.5 L Mean Corpuscular Volume 84.7 Mean Corpuscular Hemoglobin 25.9 L Mean Corpuscular Hemoglobin Concent 30.6 L Red Cell Distribution Width 17.7 H Platelet Count 416 H Mean Platelet Volume 8.7 Neutrophils % 74.9 Lymphocytes % 12.6 L Monocytes % 9.3 Eosinophils % 1.9 Basophils % 0.5 Nucleated Red Blood Cells % 0.0 Neutrophils # 12.9 H Lymphocytes # 2.2 Monocytes # 1.6 H Eosinophils # 0.3 Basophils # 0.1 Nucleated Red Blood Cells # 0.0 Medications Medications Current Medications Ondansetron HCl (Zofran Inj) 4 mg Q6 PRN IV NAUSEA AND/OR VOMITING; Start 09/26 at 22:30 Acetaminophen (Tylenol Tab) 650 mg Q6H PRN PO PAIN AND OR ELEVATED TEMP Last administered on 10/31/16 20:49; Admin Dose 650 MG; Start 09/26/16 at 23:00 Alprazolam (Xanax) 0.5 mg Q12 PRN PO ANXIETY Last administered on 10/29/16 14: 31; Admin Dose 0.5 MG; Start 09/26/16 at 23:00 Ascorbic Acid (Vitamin C) 500 mg BID PO Last administered on 11/04/16 08:52; Admin Dose 500 MG; Start 09/27/16 at 09:00 Atorvastatin Calcium (Lipitor) 20 mg QHS PO Last administered on 11/03/16 20: 55; Admin Dose 20 MG; Start 09/27/16 at 21:00 Diazepam (Valium) 10 mg DAILY PO Last administered on 11/04/16 08:53; Admin Dose 10 MG; Start 09/27/16 at 09:00 Docusate Sodium (Colace) 100 mg Q12H PRN PO CONSTIPATION; Start 09/26/16 at 23: 00 Duloxetine HCl (Cymbalta) 20 mg DAILY PO Last administered on 11/02/16 08:06; Admin Dose 20 MG; Start 09/27/16 at 09:00 Zolpidem Tartrate (Ambien) 5 mg QHS PRN PO INSOMNIA Last administered on 00:22; Admin Dose 5 MG; Start 09/26/16 at 23:00 Collagenase (Santyl) 1 applic DAILY TOP Last administered on 11/04/16 03:47; Admin Dose 1 APPLIC; Start 09/27/16 at 09:00 Collagenase (Santyl) 1 applic PRN PRN TOP SOILED OR DISLODGED DRESSING; Start 09/27/16 at 05:00 Lansoprazole (Prevacid) 30 mg DAILY@06 GTB Last administered on 11/04/16 06:04 ; Admin Dose 30 MG; Start 09/28/16 at 06:00 Cromolyn Sodium (Nasalcrom) 1 spray QID NASAL Last administered on 11/04/16 12 :04; Admin Dose 1 SPRAY; Start 09/29/16 at 11:02 Phenol (Cepastat Lozenge) 1 lozenge Q2H PRN MT SORE THROAT Last administered on 11/02/16 01:02; Admin Dose 1 LOZENGE; Start 10/01/16 at 19:00 IV Flush (NS 10 ml) 10 ml PRN PRN IV IV PROTOCOL Last administered on 08:08; Admin Dose 10 ML; Start 10/02/16 at 19:00 Lactobacillus Acidophilus (Florajen3 Capsule) 1 each TID PO Last administered on 11/04/16 12:29; Admin Dose 1 EACH; Start 10/03/16 at 21:00 Hydromorphone HCl (Dilaudid) 0.5 mg Q4H PRN IV PAIN Last administered on 13:04; Admin Dose 0.5 MG; Start 10/06/16 at 18:30 Promethazine HCl/ Codeine (Phenergan/ Codeine) 10 ml BID PRN PO COUGH Last administered on 10/31/16 20:58; Admin Dose 10 ML; Start 10/07/16 at 20:30 Morphine Sulfate (Ms Contin (Er)) 60 mg Q6 PO Last administered on 10/21/16 12: 28; Admin Dose 60 MG; Start 10/09/16 at 12:00; Status Future Hold Potassium Chloride (Potassium Chloride Pwd/Soln) 20 meq DAILY GTB Last administered on 11/04/16 08:53; Admin Dose 20 MEQ; Start 10/30/16 at 12:00 Sodium Chloride (Nacl) 1 gm BID PO Last administered on 11/04/16 08:52; Admin Dose 1 GM; Start 11/01/16 at 21:00 Trimethoprim/ Sulfamethoxazole (Bactrim (Ds)) 1 tab BID PO Last administered on 11/04/16 08:52; Admin Dose 1 TAB; Start 11/02/16 at 12:00 DIONNE SAUCEDA MD November 04, 2016 14:05
--- NOTE | 2016-11-04 16:11 | PN ---
Date/Time of Note Date/Time of Note DATE: 11/04/16 TIME: 16:06 Assessment/Plan VTE Prophylaxis VTE Prophylaxis Intervention: other Lines/Catheters IV Catheter Type (from [facility]): PICC Line Central line still needed: Yes Urinary Cath still in place: Yes Reason Cath still needed: urinary retention Assessment/Plan Assessment/Plan - Persistent leukocytosis secondary to multiple wounds and malignancy. - Hyponatremia, Dr. Zapata is following in nephrology consultation. - Polymicrobial urinary tract infection, s/p treatment. - Left lung squamous cell carcinoma. Patient is not a candidate for chemotherapy. - Chronic obstructive pulmonary disease. Continue breathing treatment. - Multiple decubitus ulcers with history of debridement. Status post sacrococcygeal wound debridement on 10/[address] Sinclair, general surgery. continue current wound care, wound VAC. - Methicillin-resistant Staphylococcus aureus nares colonization. - Cachexia. Optimize nutrition. - Dysphagia with G-tube placement. Continue G-tube feeding. Aspiration precaution. - Chronic urinary retention. Continue George catheter. - Hypothyroidism. TSH is within normal limits. Continue Synthroid. - Anemia of chronic disease. Continue to monitor hemoglobin and hematocrit. Blood transfusion as needed. - Recurrent sepsis, resolved. Dr. Coleman is following in infection disease consultation. Status post treatment with antibiotics. DC planning Further recommendations based on clinical course. Plan of care discussed with Dr. Dozier. Subjective 24 Hr Interval Summary Eyes: no complaints ENT: no complaints Musculoskeletal: back pain Skin: other Exam/Review of Systems Vital Signs Vitals Vital Signs Date Time Temp Pulse Resp B/P Pulse Ox O2 Delivery O2 Flow Rate FiO2 11/04/16 09:30 Nasal Cannula 2.0 11/04/16 08:07 98.5 80 18 108/56 80 Intake and Output 11/03/16 11/03/16 11/04/16 15:00 23:00 07:00 Intake Total 1060 ml 820 ml Output Total 600 ml 700 ml Balance 460 ml 120 ml Exam Constitutional: alert Respiratory: clear to auscultation, normal air movement Cardiovascular: nl pulses, regular rate and rhythm Gastrointestinal: non-tender, soft Musculoskeletal: muscle weakness, other Extremities: normal pulses Neurological: confused, nl speech Skin: other (sacral decub) Results Result Diagram: 11/04/16 0445 11/03/16 0425 Results 24 hrs Laboratory Tests Test 11/04/16 04:45 White Blood Count 17.2 H Red Blood Count 3.13 L Hemoglobin 8.1 L Hematocrit 26.5 L Mean Corpuscular Volume 84.7 Mean Corpuscular Hemoglobin 25.9 L Mean Corpuscular Hemoglobin Concent 30.6 L Red Cell Distribution Width 17.7 H Platelet Count 416 H Mean Platelet Volume 8.7 Neutrophils % 74.9 Lymphocytes % 12.6 L Monocytes % 9.3 Eosinophils % 1.9 Basophils % 0.5 Nucleated Red Blood Cells % 0.0 Neutrophils # 12.9 H Lymphocytes # 2.2 Monocytes # 1.6 H Eosinophils # 0.3 Basophils # 0.1 Nucleated Red Blood Cells # 0.0 Medications Medications Current Medications Ondansetron HCl (Zofran Inj) 4 mg Q6 PRN IV NAUSEA AND/OR VOMITING; Start 09/26 at 22:30 Acetaminophen (Tylenol Tab) 650 mg Q6H PRN PO PAIN AND OR ELEVATED TEMP Last administered on 10/31/16 20:49; Admin Dose 650 MG; Start 09/26/16 at 23:00 Alprazolam (Xanax) 0.5 mg Q12 PRN PO ANXIETY Last administered on 10/29/16 14: 31; Admin Dose 0.5 MG; Start 09/26/16 at 23:00 Ascorbic Acid (Vitamin C) 500 mg BID PO Last administered on 11/04/16 08:52; Admin Dose 500 MG; Start 09/27/16 at 09:00 Atorvastatin Calcium (Lipitor) 20 mg QHS PO Last administered on 11/03/16 20: 55; Admin Dose 20 MG; Start 09/27/16 at 21:00 Diazepam (Valium) 10 mg DAILY PO Last administered on 11/04/16 08:53; Admin Dose 10 MG; Start 09/27/16 at 09:00 Docusate Sodium (Colace) 100 mg Q12H PRN PO CONSTIPATION; Start 09/26/16 at 23: 00 Duloxetine HCl (Cymbalta) 20 mg DAILY PO Last administered on 11/02/16 08:06; Admin Dose 20 MG; Start 09/27/16 at 09:00 Zolpidem Tartrate (Ambien) 5 mg QHS PRN PO INSOMNIA Last administered on 00:22; Admin Dose 5 MG; Start 09/26/16 at 23:00 Collagenase (Santyl) 1 applic DAILY TOP Last administered on 11/04/16 03:47; Admin Dose 1 APPLIC; Start 09/27/16 at 09:00 Collagenase (Santyl) 1 applic PRN PRN TOP SOILED OR DISLODGED DRESSING; Start 09/27/16 at 05:00 Lansoprazole (Prevacid) 30 mg DAILY@06 GTB Last administered on 11/04/16 06:04 ; Admin Dose 30 MG; Start 09/28/16 at 06:00 Cromolyn Sodium (Nasalcrom) 1 spray QID NASAL Last administered on 11/04/16 12 :04; Admin Dose 1 SPRAY; Start 09/29/16 at 11:02 Phenol (Cepastat Lozenge) 1 lozenge Q2H PRN MT SORE THROAT Last administered on 11/02/16 01:02; Admin Dose 1 LOZENGE; Start 10/01/16 at 19:00 IV Flush (NS 10 ml) 10 ml PRN PRN IV IV PROTOCOL Last administered on 08:08; Admin Dose 10 ML; Start 10/02/16 at 19:00 Lactobacillus Acidophilus (Florajen3 Capsule) 1 each TID PO Last administered on 11/04/16 12:29; Admin Dose 1 EACH; Start 10/03/16 at 21:00 Hydromorphone HCl (Dilaudid) 0.5 mg Q4H PRN IV PAIN Last administered on 13:04; Admin Dose 0.5 MG; Start 10/06/16 at 18:30 Promethazine HCl/ Codeine (Phenergan/ Codeine) 10 ml BID PRN PO COUGH Last administered on 10/31/16 20:58; Admin Dose 10 ML; Start 10/07/16 at 20:30 Morphine Sulfate (Ms Contin (Er)) 60 mg Q6 PO Last administered on 10/21/16 12: 28; Admin Dose 60 MG; Start 10/09/16 at 12:00; Status Future Hold Potassium Chloride (Potassium Chloride Pwd/Soln) 20 meq DAILY GTB Last administered on 11/04/16 08:53; Admin Dose 20 MEQ; Start 10/30/16 at 12:00 Sodium Chloride (Nacl) 1 gm BID PO Last administered on 11/04/16 08:52; Admin Dose 1 GM; Start 11/01/16 at 21:00 Trimethoprim/ Sulfamethoxazole (Bactrim (Ds)) 1 tab BID PO Last administered on 11/04/16 08:52; Admin Dose 1 TAB; Start 11/02/16 at 12:00 VIKASH CASTANEDA November 04, 2016 16:11
[2016-11-04 19:30] VITALS: BP 103/57; RESP 22
--- NOTE | 2016-11-04 19:46 | CONS ---
Date/Time of Note Date/Time of Note DATE: 11/04/16 TIME: 19:41 Assessment/Plan Assessment/Plan Chief Complaint/Hosp Course ID PROGRESS NOTE ABX: BACTRIM s/p Amikacin + Zyvox + Flagyl 24H INTERVAL SUMMARY * Awake, calm, hx of dementia w/agitative features * UTI -> (+)ACBA -> s/p ABX * -Chronic leukocytosis * Chronic pain issues PHYSICAL EXAMINATION: GENERAL: This is a chronically ill-appearing, frail 66 yo F HEENT: Unremarkable -- NECK: Supple, trachea midline. CHEST: Rise symmetrical without dyspnea ABDOMEN: Refuses exam EXTREMITIES: Moves all extremities, Without cyanosis. ID ASSESSMENT: 66 yo F w/PMHx Dementia, CVA(chronic left thalamic lacunar infarction), Tobacco/ COPD-Emphysema/Lung Cancer re-admit with: 1. SIRS => RESOLVING * Afebrile * Chronic mild tachycardia - albuterol * Chronic elevated WBC 2. Recurrent UTI * (+)ACBA * s/p Proteus mirabilis and Klebsiella pneumoniae, both susceptible to amikacin and Zosyn. 3. Urinary retention with chronic George=>Probable neurogenic bladder 5. Status post acute respiratory failure secondary to chronic obstructive pulmonary disease exacerbation. * O2 dependent via NC, chronic recurrent cough, CXR w/persistent lung mass 6. Chronic debility w/Cachexia. 7. Multiple decubitus with a history of debridement => Sacrococcygeal ulcer s /p exc boris 10/27. 8. H/O DJD spine -> Hx of lumbar spinal fusion 9 .H/O Hypertension w/HTN heart disease mild-mod cLVH on ECHO w/diastolic dysfunction STG I 10. Right hand/wrist pain => CT showed triscaphe arthritis -- Probable pseudogout best treated w/NSAIDS 11. Hx of recurrent C.Diff colitis (+) MRSA Nares screen ->Bactroban INVASIVES: PICC, FC, Peg ALLERGY: PENICILLIN. CURRENT ABX: ABX: BACTRIM s/p Amikacin + Zyvox + Flagyl ID PLAN: * Continue Bactrim over the weekend * Continue wound care * ASP precautions . Problems: Consultation Date/Type/Reason Admit Date/Time Sep 26, 2016 at 20:07 Type of Consultation: ID Referring Provider: DRE LOBATO MD Exam/Review of Systems Vital Signs Vitals Vital Signs Date Time Temp Pulse Resp B/P Pulse Ox O2 Delivery O2 Flow Rate FiO2 11/04/16 19:29 3.0 11/04/16 09:30 Nasal Cannula 11/04/16 08:07 98.5 80 18 108/56 80 Intake and Output 11/03/16 11/03/16 11/04/16 15:00 23:00 07:00 Intake Total 1060 ml 820 ml Output Total 600 ml 700 ml Balance 460 ml 120 ml Results Result Diagram: 11/04/16 0445 11/03/16 0425 Results 24 hrs Laboratory Tests Test 11/04/16 04:45 White Blood Count 17.2 H Red Blood Count 3.13 L Hemoglobin 8.1 L Hematocrit 26.5 L Mean Corpuscular Volume 84.7 Mean Corpuscular Hemoglobin 25.9 L Mean Corpuscular Hemoglobin Concent 30.6 L Red Cell Distribution Width 17.7 H Platelet Count 416 H Mean Platelet Volume 8.7 Neutrophils % 74.9 Lymphocytes % 12.6 L Monocytes % 9.3 Eosinophils % 1.9 Basophils % 0.5 Nucleated Red Blood Cells % 0.0 Neutrophils # 12.9 H Lymphocytes # 2.2 Monocytes # 1.6 H Eosinophils # 0.3 Basophils # 0.1 Nucleated Red Blood Cells # 0.0 Medications Medications Current Medications Ondansetron HCl (Zofran Inj) 4 mg Q6 PRN IV NAUSEA AND/OR VOMITING; Start 09/26 at 22:30 Acetaminophen (Tylenol Tab) 650 mg Q6H PRN PO PAIN AND OR ELEVATED TEMP Last administered on 10/31/16 20:49; Admin Dose 650 MG; Start 09/26/16 at 23:00 Alprazolam (Xanax) 0.5 mg Q12 PRN PO ANXIETY Last administered on 10/29/16 14: 31; Admin Dose 0.5 MG; Start 09/26/16 at 23:00 Ascorbic Acid (Vitamin C) 500 mg BID PO Last administered on 11/04/16 08:52; Admin Dose 500 MG; Start 09/27/16 at 09:00 Atorvastatin Calcium (Lipitor) 20 mg QHS PO Last administered on 11/03/16 20: 55; Admin Dose 20 MG; Start 09/27/16 at 21:00 Diazepam (Valium) 10 mg DAILY PO Last administered on 11/04/16 08:53; Admin Dose 10 MG; Start 09/27/16 at 09:00 Docusate Sodium (Colace) 100 mg Q12H PRN PO CONSTIPATION; Start 09/26/16 at 23: 00 Duloxetine HCl (Cymbalta) 20 mg DAILY PO Last administered on 11/02/16 08:06; Admin Dose 20 MG; Start 09/27/16 at 09:00 Zolpidem Tartrate (Ambien) 5 mg QHS PRN PO INSOMNIA Last administered on 00:22; Admin Dose 5 MG; Start 09/26/16 at 23:00 Collagenase (Santyl) 1 applic DAILY TOP Last administered on 11/04/16 03:47; Admin Dose 1 APPLIC; Start 09/27/16 at 09:00 Collagenase (Santyl) 1 applic PRN PRN TOP SOILED OR DISLODGED DRESSING; Start 09/27/16 at 05:00 Lansoprazole (Prevacid) 30 mg DAILY@06 GTB Last administered on 11/04/16 06:04 ; Admin Dose 30 MG; Start 09/28/16 at 06:00 Cromolyn Sodium (Nasalcrom) 1 spray QID NASAL Last administered on 11/04/16 17 :09; Admin Dose 1 SPRAY; Start 09/29/16 at 11:02 Phenol (Cepastat Lozenge) 1 lozenge Q2H PRN MT SORE THROAT Last administered on 11/02/16 01:02; Admin Dose 1 LOZENGE; Start 10/01/16 at 19:00 IV Flush (NS 10 ml) 10 ml PRN PRN IV IV PROTOCOL Last administered on 08:08; Admin Dose 10 ML; Start 10/02/16 at 19:00 Lactobacillus Acidophilus (Florajen3 Capsule) 1 each TID PO Last administered on 11/04/16 12:29; Admin Dose 1 EACH; Start 10/03/16 at 21:00 Hydromorphone HCl (Dilaudid) 0.5 mg Q4H PRN IV PAIN Last administered on 17:10; Admin Dose 0.5 MG; Start 10/06/16 at 18:30 Promethazine HCl/ Codeine (Phenergan/ Codeine) 10 ml BID PRN PO COUGH Last administered on 10/31/16 20:58; Admin Dose 10 ML; Start 10/07/16 at 20:30 Morphine Sulfate (Ms Contin (Er)) 60 mg Q6 PO Last administered on 10/21/16 12: 28; Admin Dose 60 MG; Start 10/09/16 at 12:00; Status Future Hold Potassium Chloride (Potassium Chloride Pwd/Soln) 20 meq DAILY GTB Last administered on 11/04/16 08:53; Admin Dose 20 MEQ; Start 10/30/16 at 12:00 Sodium Chloride (Nacl) 1 gm BID PO Last administered on 11/04/16 08:52; Admin Dose 1 GM; Start 11/01/16 at 21:00 Trimethoprim/ Sulfamethoxazole (Bactrim (Ds)) 1 tab BID PO Last administered on 11/04/16 08:52; Admin Dose 1 TAB; Start 11/02/16 at 12:00 ALMA ROSARIO NP November 04, 2016 19:46
[2016-11-04] MEDS: ATORVASTATIN 20 MG TAB PO SCH (21:30)
[2016-11-05] MEDS: HYDROmorphONE 1 MG/ML SYG IV PRN ×5 (01:31→20:09)
[2016-11-05] MEDS: LANSOPRAZOLE 30 MG CAP GTB SCH (06:08)
[2016-11-05] MEDS: LEVOTHYROXINE 125 MCG TAB PO SCH (06:09)
[2016-11-05 06:19] LABS: ADD SCAN DIFF NO
[2016-11-05 06:22] LABS: ABNORMAL IP MESSAGE 1; BASOPHIL # 0.1 10^3/ul (0.0-0.1); BASOPHILS % 0.5 % (0.0-2.0); EOSINOPHILS # 0.5 10^3/ul (0.0-0.5); EOSINOPHILS % 2.9 % (0.0-7.0); HEMATOCRIT 24.1 % (37.0-47.0); HEMOGLOBIN 7.2 g/dl (12.0-16.0); LYMPHOCYTES # 2.5 10^3/ul (0.8-2.9); LYMPHOCYTES % 13.5 % (15.0-51.0); MEAN CORPUSCULAR HEMOGLOBIN 25.7 pg (29.0-33.0); MEAN CORPUSCULAR HGB CONC 29.9 g/dl (32.0-37.0); MEAN CORPUSCULAR VOLUME 86.1 fl (82.0-101.0); MEAN PLATELET VOLUME 9.8 fl (7.4-10.4); MONOCYTE # 1.8 10^3/ul (0.3-0.9); MONOCYTES % 9.5 % (0.0-11.0); NEUTROPHIL # 13.5 10^3/ul (1.6-7.5); NEUTROPHILS % 72.6 % (39.0-77.0); PLATELET COUNT 436 10^3/UL (140-415); RED CELL DISTRIBUTION WIDTH 17.9 % (11.5-14.5); WHITE BLOOD COUNT 18.6 10^3/ul (4.8-10.8)
[2016-11-05 08:01] VITALS: BP 93/62; RESP 38
[2016-11-05] MEDS: ALBUTEROL/IPRATROPIUM (NEB) 3 ML AMP NEB PRN (08:24)
[2016-11-05] MEDS ORDERED: FUROSEMIDE 40 MG INJ IV ONE (08:30)
[2016-11-05] MEDS: TRIMETHOPRIM/SULFAMETHOX (DS) TAB PO SCH ×2 (09:52→20:10)
[2016-11-05] MEDS: CROMOLYN 4% 26ML NAS INH NASAL SCH ×4 (09:52→20:10)
[2016-11-05] MEDS: POTASSIUM CHLORIDE 20 MEQ POWDER FOR ORAL SOLN GTB SCH (09:52)
[2016-11-05] MEDS: ASCORBIC ACID 500 MG TAB PO SCH ×2 (09:53→20:10)
[2016-11-05] MEDS: DULOXETINE 20 MG CAP DR PO SCH (09:53)
[2016-11-05] MEDS: L ACIDOPHIL/B LACTIS/B LONGUM CAPSULE PO SCH ×3 (09:53→20:10)
[2016-11-05] MEDS: SODIUM CHLORIDE 1 GM TAB PO SCH ×2 (09:53→20:10)
[2016-11-05] MEDS: COLLAGENASE 30 GM TUBE TOP SCH (09:54)
--- NOTE | 2016-11-05 11:10 | CONS ---
Date/Time of Note Date/Time of Note DATE: 11/05/16 TIME: 11:08 Assessment/Plan Assessment/Plan Chief Complaint/Hosp Course ID PROGRESS NOTE ABX: BACTRIM s/p Amikacin + Zyvox + Flagyl 24H INTERVAL SUMMARY * Lethargic, forgetful, calm --> c/o chronic pain back wounds * hx of dementia w/agitative features, chronic debility * UTI -> (+)ACBA -> s/p ABX * Chronic leukocytosis * 11/05/16 0454 11/03/16 0425 PHYSICAL EXAMINATION: GENERAL: This is a chronically ill-appearing, frail 66 yo F HEENT: Unremarkable -- NECK: Supple, trachea midline. CHEST: Rise symmetrical without dyspnea ABDOMEN: Refuses exam EXTREMITIES: Moves all extremities, Without cyanosis. ID ASSESSMENT: 66 yo F w/PMHx Dementia, CVA(chronic left thalamic lacunar infarction), Tobacco/ COPD-Emphysema/Lung Cancer re-admit with: 1. SIRS => RESOLVING * Afebrile * Chronic mild tachycardia - albuterol * Chronic elevated WBC 2. Recurrent UTI * (+)ACBA * s/p Proteus mirabilis and Klebsiella pneumoniae, both susceptible to amikacin and Zosyn. 3. Urinary retention with chronic George=>Probable neurogenic bladder 5. Status post acute respiratory failure secondary to chronic obstructive pulmonary disease exacerbation. * O2 dependent via NC, chronic recurrent cough, CXR w/persistent lung mass 6. Chronic debility w/Cachexia. 7. Multiple decubitus with a history of debridement => Sacrococcygeal ulcer s /p exc boris 10/27. 8. H/O DJD spine -> Hx of lumbar spinal fusion 9 .H/O Hypertension w/HTN heart disease mild-mod cLVH on ECHO w/diastolic dysfunction STG I 10. Right hand/wrist pain => CT showed triscaphe arthritis -- Probable pseudogout best treated w/NSAIDS 11. Hx of recurrent C.Diff colitis (+) MRSA Nares screen ->Bactroban INVASIVES: PICC, FC, Peg ALLERGY: PENICILLIN. CURRENT ABX: ABX: BACTRIM s/p Amikacin + Zyvox + Flagyl ID PLAN: * Continue Bactrim over the weekend * Continue wound care * ASP precautions . Problems: Consultation Date/Type/Reason Admit Date/Time Sep 26, 2016 at 20:07 Type of Consultation: ID Referring Provider: DRE LOBATO MD Exam/Review of Systems Vital Signs Vitals Vital Signs Date Time Temp Pulse Resp B/P Pulse Ox O2 Delivery O2 Flow Rate FiO2 11/05/16 08:32 110 30 94 Nasal Cannula 3.0 11/05/16 08:01 98.6 93/62 Intake and Output 11/04/16 11/04/16 11/05/16 15:00 23:00 07:00 Intake Total 1400 ml 1300 ml Output Total 700 ml 725 ml Balance 700 ml 575 ml Results Result Diagram: 11/05/16 0454 11/03/16 0425 Results 24 hrs Laboratory Tests Test 11/05/16 04:54 White Blood Count 18.6 H Red Blood Count 2.80 L Hemoglobin 7.2 L Hematocrit 24.1 L Mean Corpuscular Volume 86.1 Mean Corpuscular Hemoglobin 25.7 L Mean Corpuscular Hemoglobin Concent 29.9 L Red Cell Distribution Width 17.9 H Platelet Count 436 H Mean Platelet Volume 9.8 Neutrophils % 72.6 Lymphocytes % 13.5 L Monocytes % 9.5 Eosinophils % 2.9 Basophils % 0.5 Nucleated Red Blood Cells % 0.0 Neutrophils # 13.5 H Lymphocytes # 2.5 Monocytes # 1.8 H Eosinophils # 0.5 Basophils # 0.1 Nucleated Red Blood Cells # 0.0 Medications Medications Current Medications Ondansetron HCl (Zofran Inj) 4 mg Q6 PRN IV NAUSEA AND/OR VOMITING; Start 09/26 at 22:30 Acetaminophen (Tylenol Tab) 650 mg Q6H PRN PO PAIN AND OR ELEVATED TEMP Last administered on 10/31/16 20:49; Admin Dose 650 MG; Start 09/26/16 at 23:00 Alprazolam (Xanax) 0.5 mg Q12 PRN PO ANXIETY Last administered on 10/29/16 14: 31; Admin Dose 0.5 MG; Start 09/26/16 at 23:00 Ascorbic Acid (Vitamin C) 500 mg BID PO Last administered on 11/05/16 09:53; Admin Dose 500 MG; Start 09/27/16 at 09:00 Atorvastatin Calcium (Lipitor) 20 mg QHS PO Last administered on 11/04/16 21: 30; Admin Dose 20 MG; Start 09/27/16 at 21:00 Diazepam (Valium) 10 mg DAILY PO Last administered on 11/04/16 08:53; Admin Dose 10 MG; Start 09/27/16 at 09:00 Docusate Sodium (Colace) 100 mg Q12H PRN PO CONSTIPATION; Start 09/26/16 at 23: 00 Duloxetine HCl (Cymbalta) 20 mg DAILY PO Last administered on 11/05/16 09:53; Admin Dose 20 MG; Start 09/27/16 at 09:00 Zolpidem Tartrate (Ambien) 5 mg QHS PRN PO INSOMNIA Last administered on 00:22; Admin Dose 5 MG; Start 09/26/16 at 23:00 Collagenase (Santyl) 1 applic DAILY TOP Last administered on 11/05/16 09:54; Admin Dose 1 APPLIC; Start 09/27/16 at 09:00 Collagenase (Santyl) 1 applic PRN PRN TOP SOILED OR DISLODGED DRESSING; Start 09/27/16 at 05:00 Lansoprazole (Prevacid) 30 mg DAILY@06 GTB Last administered on 11/05/16 06:08 ; Admin Dose 30 MG; Start 09/28/16 at 06:00 Cromolyn Sodium (Nasalcrom) 1 spray QID NASAL Last administered on 11/05/16 09 :52; Admin Dose 1 SPRAY; Start 09/29/16 at 11:02 Phenol (Cepastat Lozenge) 1 lozenge Q2H PRN MT SORE THROAT Last administered on 11/02/16 01:02; Admin Dose 1 LOZENGE; Start 10/01/16 at 19:00 IV Flush (NS 10 ml) 10 ml PRN PRN IV IV PROTOCOL Last administered on 08:08; Admin Dose 10 ML; Start 10/02/16 at 19:00 Lactobacillus Acidophilus (Florajen3 Capsule) 1 each TID PO Last administered on 11/05/16 09:53; Admin Dose 1 EACH; Start 10/03/16 at 21:00 Hydromorphone HCl (Dilaudid) 0.5 mg Q4H PRN IV PAIN Last administered on 06:08; Admin Dose 0.5 MG; Start 10/06/16 at 18:30 Promethazine HCl/ Codeine (Phenergan/ Codeine) 10 ml BID PRN PO COUGH Last administered on 10/31/16 20:58; Admin Dose 10 ML; Start 10/07/16 at 20:30 Morphine Sulfate (Ms Contin (Er)) 60 mg Q6 PO Last administered on 10/21/16 12: 28; Admin Dose 60 MG; Start 10/09/16 at 12:00; Status Future Hold Potassium Chloride (Potassium Chloride Pwd/Soln) 20 meq DAILY GTB Last administered on 11/05/16 09:52; Admin Dose 20 MEQ; Start 10/30/16 at 12:00 Sodium Chloride (Nacl) 1 gm BID PO Last administered on 11/05/16 09:53; Admin Dose 1 GM; Start 11/01/16 at 21:00 Trimethoprim/ Sulfamethoxazole (Bactrim (Ds)) 1 tab BID PO Last administered on 11/05/16 09:52; Admin Dose 1 TAB; Start 11/02/16 at 12:00 ALMA ROSARIO NP November 05, 2016 11:10
--- NOTE | 2016-11-05 11:57 | PN ---
Date/Time of Note Date/Time of Note DATE: 11/05/16 TIME: 11:55 Assessment/Plan VTE Prophylaxis VTE Prophylaxis Intervention: other Lines/Catheters IV [facility]ter Type (from [facility]): PICC Line Central line still needed: Yes Urinary Cath still in place: Yes Reason Cath still needed: urinary retention Assessment/Plan Assessment/Plan - Anemia - Transfuse 2 units PRBC - am CBC - Persistent leukocytosis secondary to multiple wounds and malignancy. - Hyponatremia, Dr. Zapata is following in nephrology consultation. - Polymicrobial urinary tract infection, s/p treatment. - Left lung squamous cell carcinoma. Patient is not a candidate for chemotherapy. - Chronic obstructive pulmonary disease. Continue breathing treatment. - Multiple decubitus ulcers with history of debridement. Status post sacrococcygeal wound debridement on 10/[address] Sinclair, general surgery. continue current wound care, wound VAC. - Methicillin-resistant Staphylococcus aureus nares colonization. - Cachexia. Optimize nutrition. - Dysphagia with G-tube placement. Continue G-tube feeding. Aspiration precaution. - Chronic urinary retention. Continue George catheter. - Hypothyroidism. TSH is within normal limits. Continue Synthroid. - Anemia of chronic disease. Continue to monitor hemoglobin and hematocrit. Blood transfusion as needed. - Recurrent sepsis, resolved. Dr. Coleman is following in infection disease consultation. Status post treatment with antibiotics. DC planning Further recommendations based on clinical course. Plan of care discussed with Dr. Dozier. Subjective 24 Hr Interval Summary Free Text/Dictation lying in bed, - will get 2 units PRBC for low H/.H. wound vac intact, afebrile, dw staff Respiratory: no complaints Cardiovascular: no complaints Gastrointestinal: no complaints Musculoskeletal: back pain Exam/Review of Systems Vital Signs Vitals Vital Signs Date Time Temp Pulse Resp B/P Pulse Ox O2 Delivery O2 Flow Rate FiO2 11/05/16 08:32 110 30 94 Nasal Cannula 3.0 11/05/16 08:01 98.6 93/62 Intake and Output 11/04/16 11/04/16 11/05/16 15:00 23:00 07:00 Intake Total 1400 ml 1300 ml Output Total 700 ml 725 ml Balance 700 ml 575 ml Exam Constitutional: alert Respiratory: diminished breath sounds Cardiovascular: nl pulses Gastrointestinal: non-tender, soft Results Result Diagram: 11/05/16 0454 11/03/16 0425 Results 24 hrs Laboratory Tests Test 11/05/16 04:54 White Blood Count 18.6 H Red Blood Count 2.80 L Hemoglobin 7.2 L Hematocrit 24.1 L Mean Corpuscular Volume 86.1 Mean Corpuscular Hemoglobin 25.7 L Mean Corpuscular Hemoglobin Concent 29.9 L Red Cell Distribution Width 17.9 H Platelet Count 436 H Mean Platelet Volume 9.8 Neutrophils % 72.6 Lymphocytes % 13.5 L Monocytes % 9.5 Eosinophils % 2.9 Basophils % 0.5 Nucleated Red Blood Cells % 0.0 Neutrophils # 13.5 H Lymphocytes # 2.5 Monocytes # 1.8 H Eosinophils # 0.5 Basophils # 0.1 Nucleated Red Blood Cells # 0.0 Medications Medications Current Medications Ondansetron HCl (Zofran Inj) 4 mg Q6 PRN IV NAUSEA AND/OR VOMITING; Start 09/26 at 22:30 Acetaminophen (Tylenol Tab) 650 mg Q6H PRN PO PAIN AND OR ELEVATED TEMP Last administered on 10/31/16 20:49; Admin Dose 650 MG; Start 09/26/16 at 23:00 Alprazolam (Xanax) 0.5 mg Q12 PRN PO ANXIETY Last administered on 10/29/16 14: 31; Admin Dose 0.5 MG; Start 09/26/16 at 23:00 Ascorbic Acid (Vitamin C) 500 mg BID PO Last administered on 11/05/16 09:53; Admin Dose 500 MG; Start 09/27/16 at 09:00 Atorvastatin Calcium (Lipitor) 20 mg QHS PO Last administered on 11/04/16 21: 30; Admin Dose 20 MG; Start 09/27/16 at 21:00 Diazepam (Valium) 10 mg DAILY PO Last administered on 11/04/16 08:53; Admin Dose 10 MG; Start 09/27/16 at 09:00 Docusate Sodium (Colace) 100 mg Q12H PRN PO CONSTIPATION; Start 09/26/16 at 23: 00 Duloxetine HCl (Cymbalta) 20 mg DAILY PO Last administered on 11/05/16 09:53; Admin Dose 20 MG; Start 09/27/16 at 09:00 Zolpidem Tartrate (Ambien) 5 mg QHS PRN PO INSOMNIA Last administered on 00:22; Admin Dose 5 MG; Start 09/26/16 at 23:00 Collagenase (Santyl) 1 applic DAILY TOP Last administered on 11/05/16 09:54; Admin Dose 1 APPLIC; Start 09/27/16 at 09:00 Collagenase (Santyl) 1 applic PRN PRN TOP SOILED OR DISLODGED DRESSING; Start 09/27/16 at 05:00 Lansoprazole (Prevacid) 30 mg DAILY@06 GTB Last administered on 11/05/16 06:08 ; Admin Dose 30 MG; Start 09/28/16 at 06:00 Cromolyn Sodium (Nasalcrom) 1 spray QID NASAL Last administered on 11/05/16 09 :52; Admin Dose 1 SPRAY; Start 09/29/16 at 11:02 Phenol (Cepastat Lozenge) 1 lozenge Q2H PRN MT SORE THROAT Last administered on 11/02/16 01:02; Admin Dose 1 LOZENGE; Start 10/01/16 at 19:00 IV Flush (NS 10 ml) 10 ml PRN PRN IV IV PROTOCOL Last administered on 08:08; Admin Dose 10 ML; Start 10/02/16 at 19:00 Lactobacillus Acidophilus (Florajen3 Capsule) 1 each TID PO Last administered on 11/05/16 09:53; Admin Dose 1 EACH; Start 10/03/16 at 21:00 Hydromorphone HCl (Dilaudid) 0.5 mg Q4H PRN IV PAIN Last administered on 06:08; Admin Dose 0.5 MG; Start 10/06/16 at 18:30 Promethazine HCl/ Codeine (Phenergan/ Codeine) 10 ml BID PRN PO COUGH Last administered on 10/31/16 20:58; Admin Dose 10 ML; Start 10/07/16 at 20:30 Morphine Sulfate (Ms Contin (Er)) 60 mg Q6 PO Last administered on 10/21/16 12: 28; Admin Dose 60 MG; Start 10/09/16 at 12:00; Status Future Hold Potassium Chloride (Potassium Chloride Pwd/Soln) 20 meq DAILY GTB Last administered on 11/05/16 09:52; Admin Dose 20 MEQ; Start 10/30/16 at 12:00 Sodium Chloride (Nacl) 1 gm BID PO Last administered on 11/05/16 09:53; Admin Dose 1 GM; Start 11/01/16 at 21:00 Trimethoprim/ Sulfamethoxazole (Bactrim (Ds)) 1 tab BID PO Last administered on 11/05/16 09:52; Admin Dose 1 TAB; Start 11/02/16 at 12:00 VIKASH CASTANEDA November 05, 2016 11:57
[2016-11-05 13:15] VITALS: BP 106/70; PULSE 113; RESP 32
[2016-11-05] MEDS: DIAZEPAM 5 MG TAB PO SCH (13:25)
[2016-11-05 15:32] LABS: CALCIUM 8.7 mg/dl (8.4-10.2); CREATININE 0.5 mg/dl (0.44-1.00); POTASSIUM 4.5 mmol/L (3.5-5.1)
--- NOTE | 2016-11-05 16:29 | CONS ---
Date/Time of Note Date/Time of Note DATE: 11/05/16 TIME: 16:28 Assessment/Plan Assessment/Plan Additional Assessment/Plan 1. Hyponatremia, multifactorial - pt likey has Component of SAIDH causing hypoantreia, due to acute on chronic pain 2. Status post acute kidney injury on chronic kidney disease due to systemic inflammatory response syndrome. 3. Systemic inflammatory response syndrome. 4. History of recurrent polymicrobial urinary tract infections. 5. History of dementia. 6. History of previous cerebrovascular accident. 7. History of chronic obstructive pulmonary disease, recently had acute respiratory failure secondary to chronic obstructive pulmonary disease exacerbation. 8. History of urinary retention with a chronic George catheter in place. 9. Chronic debility with cachexia. 10. Multiple decubitus ulcers with a history of debridement. 11. History of degenerative joint disease of spine. 12. History of hypertension and hypertensive heart disease with mild to moderate concentric left ventricular hypertrophy and echocardiogram with diastolic dysfunction stage I. PLAN: SAIDH causing hypoantreia, due to acute on chronic pain s/p one dose of tolvaptan 15 mg on 10/24/16- Na normal on Na Chloride tablet 1 gram PO BID monitor electrolytes will follow up Consultation Date/Type/Reason Admit Date/Time Sep 26, 2016 at 20:07 Type of Consultation: NEPHROLOGY Referring Provider: DRE LOBATO MD 24 HR Interval Summary Free Text/Dictation no acute events, BP stable, BUn slightly high Exam/Review of Systems Vital Signs Vitals Vital Signs Date Time Temp Pulse Resp B/P Pulse Ox O2 Delivery O2 Flow Rate FiO2 11/05/16 08:32 110 30 94 Nasal Cannula 3.0 11/05/16 08:01 98.6 93/62 Intake and Output 11/04/16 11/04/16 11/05/16 15:00 23:00 07:00 Intake Total 1400 ml 1300 ml Output Total 700 ml 725 ml Balance 700 ml 575 ml Results Result Diagram: 11/05/16 0454 11/05/16 1515 Results 24 hrs Laboratory Tests Test 11/05/16 04:54 11/05/16 15:15 White Blood Count 18.6 H Red Blood Count 2.80 L Hemoglobin 7.2 L Hematocrit 24.1 L Mean Corpuscular Volume 86.1 Mean Corpuscular Hemoglobin 25.7 L Mean Corpuscular Hemoglobin Concent 29.9 L Red Cell Distribution Width 17.9 H Platelet Count 436 H Mean Platelet Volume 9.8 Neutrophils % 72.6 Lymphocytes % 13.5 L Monocytes % 9.5 Eosinophils % 2.9 Basophils % 0.5 Nucleated Red Blood Cells % 0.0 Neutrophils # 13.5 H Lymphocytes # 2.5 Monocytes # 1.8 H Eosinophils # 0.5 Basophils # 0.1 Nucleated Red Blood Cells # 0.0 Sodium Level 135 Potassium Level 4.5 Chloride Level 102 Carbon Dioxide Level 26 Anion Gap 12 Blood Urea Nitrogen 24 H Creatinine 0.50 Glucose Level 126 Calcium Level 8.7 Medications Medications Current Medications Ondansetron HCl (Zofran Inj) 4 mg Q6 PRN IV NAUSEA AND/OR VOMITING; Start 09/26 at 22:30 Acetaminophen (Tylenol Tab) 650 mg Q6H PRN PO PAIN AND OR ELEVATED TEMP Last administered on 10/31/16 20:49; Admin Dose 650 MG; Start 09/26/16 at 23:00 Alprazolam (Xanax) 0.5 mg Q12 PRN PO ANXIETY Last administered on 10/29/16 14: 31; Admin Dose 0.5 MG; Start 09/26/16 at 23:00 Ascorbic Acid (Vitamin C) 500 mg BID PO Last administered on 11/05/16 09:53; Admin Dose 500 MG; Start 09/27/16 at 09:00 Atorvastatin Calcium (Lipitor) 20 mg QHS PO Last administered on 11/04/16 21: 30; Admin Dose 20 MG; Start 09/27/16 at 21:00 Diazepam (Valium) 10 mg DAILY PO Last administered on 11/05/16 13:25; Admin Dose 10 MG; Start 09/27/16 at 09:00 Docusate Sodium (Colace) 100 mg Q12H PRN PO CONSTIPATION; Start 09/26/16 at 23: 00 Duloxetine HCl (Cymbalta) 20 mg DAILY PO Last administered on 11/05/16 09:53; Admin Dose 20 MG; Start 09/27/16 at 09:00 Zolpidem Tartrate (Ambien) 5 mg QHS PRN PO INSOMNIA Last administered on 00:22; Admin Dose 5 MG; Start 09/26/16 at 23:00 Collagenase (Santyl) 1 applic DAILY TOP Last administered on 11/05/16 09:54; Admin Dose 1 APPLIC; Start 09/27/16 at 09:00 Collagenase (Santyl) 1 applic PRN PRN TOP SOILED OR DISLODGED DRESSING; Start 09/27/16 at 05:00 Lansoprazole (Prevacid) 30 mg DAILY@06 GTB Last administered on 11/05/16 06:08 ; Admin Dose 30 MG; Start 09/28/16 at 06:00 Cromolyn Sodium (Nasalcrom) 1 spray QID NASAL Last administered on 11/05/16 13 :25; Admin Dose 1 SPRAY; Start 09/29/16 at 11:02 Phenol (Cepastat Lozenge) 1 lozenge Q2H PRN MT SORE THROAT Last administered on 11/02/16 01:02; Admin Dose 1 LOZENGE; Start 10/01/16 at 19:00 IV Flush (NS 10 ml) 10 ml PRN PRN IV IV PROTOCOL Last administered on 08:08; Admin Dose 10 ML; Start 10/02/16 at 19:00 Lactobacillus Acidophilus (Florajen3 Capsule) 1 each TID PO Last administered on 11/05/16 13:25; Admin Dose 1 EACH; Start 10/03/16 at 21:00 Hydromorphone HCl (Dilaudid) 0.5 mg Q4H PRN IV PAIN Last administered on 16:03; Admin Dose 0.5 MG; Start 10/06/16 at 18:30 Promethazine HCl/ Codeine (Phenergan/ Codeine) 10 ml BID PRN PO COUGH Last administered on 10/31/16 20:58; Admin Dose 10 ML; Start 10/07/16 at 20:30 Morphine Sulfate (Ms Contin (Er)) 60 mg Q6 PO Last administered on 10/21/16 12: 28; Admin Dose 60 MG; Start 10/09/16 at 12:00; Status Future Hold Potassium Chloride (Potassium Chloride Pwd/Soln) 20 meq DAILY GTB Last administered on 11/05/16 09:52; Admin Dose 20 MEQ; Start 10/30/16 at 12:00 Sodium Chloride (Nacl) 1 gm BID PO Last administered on 11/05/16 09:53; Admin Dose 1 GM; Start 11/01/16 at 21:00 Trimethoprim/ Sulfamethoxazole (Bactrim (Ds)) 1 tab BID PO Last administered on 11/05/16t 09:52; Admin Dose 1 TAB; Start 11/02/16 at 12:00 DIONNE SAUCEDA MD November 05, 2016 16:29
[2016-11-05 17:15] VITALS: BP 104/61; PULSE 117; RESP 33
[2016-11-05] MEDS ORDERED: FUROSEMIDE 40 MG INJ ONE (17:16)
[2016-11-05] MEDS: ATORVASTATIN 20 MG TAB PO SCH (20:10)
[2016-11-05 20:31] VITALS: BP 89/63; RESP 16
[2016-11-06] VITALS (26 sets, daily range): BP systolic 87–123; BP diastolic 65–95; PULSE 94–125; RESP 21–40
[2016-11-06] MEDS: HYDROmorphONE 1 MG/ML SYG IV PRN ×5 (00:22→20:25)
--- NOTE | 2016-11-06 00:59 | PN ---
Date/Time of Note Date/Time of Note DATE: 11/04/16 TIME: 22:58 Assessment/Plan Lines/Catheters IV Catheter Type (from Nrs): PICC Line George in Place (from Nrs): Yes Assessment/Plan Chief Complaint/Hosp Course 1. Multiple decubitus ulcers with debris. Sacrococcygeal ulcer s/p exc boris . -Offload -Optimize nutrition -Vitamin C -Local care 2. UTI s/p abx 3. 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 Acute on chronic diastolic heart failure -Judicious fluid management -Cardiac optimization 5. Hypertension -Diet and medication control 6. Chronic urinary retention with George 7. Depression. -Medical management 8. Hypothyroidism by history. -Synthroid 9. Anemia of chronic disease in addition to iron deficiency anemia. -Continue iron supplements. -Transfusion when necessary 10. Chronic pain syndrome. Continue pain management. Thank you Late entry 11/04 Problems: Subjective 24 Hr Interval Summary Leukocytosis. No fevers, chills, nausea, vomiting, or abdominal pain. No abnormal vaginal discharge. No bloating. No cough, sz, bloating. No robles/dizzy/ visual or neuro changes. Exam/Review of Systems Vital Signs Vitals Vital Signs Date Time Temp Pulse Resp B/P Pulse Ox O2 Delivery O2 Flow Rate FiO2 11/05/16 20:31 98.0 114 16 89/63 93 11/05/16 19:57 Nasal Cannula 2.0 Intake and Output 11/05/16 11/05/16 11/06/16 15:00 23:00 07:00 Intake Total 1250 ml Output Total 875 ml Balance 375 ml Exam Free Text/Dictation GENERAL: Elderly, cachectic, no acute distress. HEENT: Head is atraumatic, normocephalic. Pupils equal, round, reactive to light and accommodation. Oral mucosa is pink and moist. NECK: Supple, no cervical lymphadenopathy LUNGS: Normal respiratory effort CARDIAC: S1 and S2. Irregular ABDOMEN: Flat, soft and nondistended. Nontender. No rebound or guarding. SKIN: Multiple decubitus wounds/ulcers buttock sacrum and right lower extremity EXTREMITIES: No edema. Pulses equal bilaterally, 2+. NEUROLOGICAL: Responsive VASCULAR: Refill is less than 2 seconds Results Result Diagram: 11/05/16 8895 11/05/16 2567 ZAK POSEY MD November 06, 2016 00:59
--- NOTE | 2016-11-06 01:01 | PN ---
Date/Time of Note Date/Time of Note DATE: 11/05/16 TIME: 17:59 Assessment/Plan Lines/Catheters IV Catheter Type (from Nrs): PICC Line George in Place (from Nrs): Yes Assessment/Plan Chief Complaint/Hosp Course 1. Multiple decubitus ulcers with debris. Sacrococcygeal ulcer s/p exc boris . -Offload -Optimize nutrition -Vitamin C -Local care 2. UTI s/p abx 3. 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 Acute on chronic diastolic heart failure -Judicious fluid management -Cardiac optimization 5. Hypertension -Diet and medication control 6. Chronic urinary retention with George 7. Depression. -Medical management 8. Hypothyroidism by history. -Synthroid 9. Anemia of chronic disease in addition to iron deficiency anemia. -Continue iron supplements. -Transfusion when necessary 10. Chronic pain syndrome. Continue pain management. Thank you Late entry 11/05 Problems: Subjective 24 Hr Interval Summary Leukocytosis. No fevers, chills, nausea, vomiting, or abdominal pain. No abnormal vaginal discharge. No bloating. No cough, sz, bloating. No robles/dizzy/ visual or neuro changes. Exam/Review of Systems Vital Signs Vitals Vital Signs Date Time Temp Pulse Resp B/P Pulse Ox O2 Delivery O2 Flow Rate FiO2 11/05/16 20:31 98.0 114 16 89/63 93 11/05/16 19:57 Nasal Cannula 2.0 Intake and Output 11/05/16 11/05/16 11/06/16 15:00 23:00 07:00 Intake Total 1250 ml Output Total 875 ml Balance 375 ml Exam Free Text/Dictation Leukocytosis. No fevers, chills, nausea, vomiting, or abdominal pain. No abnormal vaginal discharge. No bloating. No cough, sz, bloating. No robles/dizzy/ visual or neuro changes. GENERAL: Elderly, cachectic, no acute distress. HEENT: Head is atraumatic, normocephalic. Pupils equal, round, reactive to light and accommodation. Oral mucosa is pink and moist. NECK: Supple, no cervical lymphadenopathy LUNGS: Normal respiratory effort CARDIAC: S1 and S2. Irregular ABDOMEN: Flat, soft and nondistended. Nontender. No rebound or guarding. SKIN: Multiple decubitus wounds/ulcers buttock sacrum and right lower extremity EXTREMITIES: No edema. Pulses equal bilaterally, 2+. NEUROLOGICAL: Responsive VASCULAR: Refill is less than 2 seconds Results Result Diagram: 11/05/16 0454 11/05/16 1515 ZAK POSEY MD November 06, 2016 01:01
[2016-11-06 05:05] LABS: ADD SCAN DIFF NO
[2016-11-06 05:07] LABS: BASOPHIL # 0.1 10^3/ul (0.0-0.1); BASOPHILS % 0.5 % (0.0-2.0); EOSINOPHILS # 0.5 10^3/ul (0.0-0.5); EOSINOPHILS % 2.8 % (0.0-7.0); HEMATOCRIT 32.2 % (37.0-47.0); HEMOGLOBIN 10.1 g/dl (12.0-16.0); LYMPHOCYTES % 11.9 % (15.0-51.0); MEAN CORPUSCULAR HEMOGLOBIN 26.6 pg (29.0-33.0); MEAN CORPUSCULAR HGB CONC 31.4 g/dl (32.0-37.0); MEAN CORPUSCULAR VOLUME 84.7 fl (82.0-101.0); MEAN PLATELET VOLUME 9.1 fl (7.4-10.4); MONOCYTE # 1.4 10^3/ul (0.3-0.9); MONOCYTES % 8.4 % (0.0-11.0); NEUTROPHIL # 12.5 10^3/ul (1.6-7.5); NEUTROPHILS % 75.7 % (39.0-77.0); PLATELET COUNT 398 10^3/UL (140-415); RED CELL DISTRIBUTION WIDTH 16.7 % (11.5-14.5); WHITE BLOOD COUNT 16.5 10^3/ul (4.8-10.8)
[2016-11-06 05:32] LABS: POTASSIUM 3.7 mmol/L (3.5-5.1)
[2016-11-06 05:34] LABS: CREATININE 0.53 mg/dl (0.44-1.00)
[2016-11-06 05:35] LABS: CALCIUM 9.1 mg/dl (8.4-10.2)
[2016-11-06] MEDS: LEVOTHYROXINE 125 MCG TAB PO SCH (06:22)
[2016-11-06] MEDS: LANSOPRAZOLE 30 MG CAP GTB SCH (06:22)
[2016-11-06] MEDS: TRIMETHOPRIM/SULFAMETHOX (DS) TAB PO SCH ×2 (08:46→22:11)
[2016-11-06] MEDS: ASCORBIC ACID 500 MG TAB PO SCH ×2 (08:46→20:57)
[2016-11-06] MEDS: POTASSIUM CHLORIDE 20 MEQ POWDER FOR ORAL SOLN GTB SCH (08:46)
[2016-11-06] MEDS: DIAZEPAM 5 MG TAB PO SCH (08:47)
[2016-11-06] MEDS: SODIUM CHLORIDE 1 GM TAB PO SCH ×2 (08:47→20:57)
[2016-11-06] MEDS: DULOXETINE 20 MG CAP DR PO SCH (08:47)
[2016-11-06] MEDS: COLLAGENASE 30 GM TUBE TOP SCH (09:00)
[2016-11-06] MEDS: CROMOLYN 4% 26ML NAS INH NASAL SCH ×4 (10:00→20:58)
[2016-11-06] MEDS: L ACIDOPHIL/B LACTIS/B LONGUM CAPSULE PO SCH ×3 (10:00→22:11)
[2016-11-06] MEDS: PROMETHAZINE/CODEINE 5ML CUP PO PRN (10:03)
[2016-11-06] MEDS: ACETAMINOPHEN 325 MG TAB PO PRN ×2 (10:03→17:20)
--- NOTE | 2016-11-06 11:03 | PN ---
Date/Time of Note Date/Time of Note DATE: 11/06/16 TIME: 11:02 Assessment/Plan Lines/Catheters IV Catheter Type (from Nrs): PICC Line George in Place (from Nrs): Yes Assessment/Plan Chief Complaint/Hosp Course 1. Multiple decubitus ulcers with debris. Sacrococcygeal ulcer s/p exc boris . -Offload -Optimize nutrition -Vitamin C -Local care 2. UTI s/p abx 3. 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 Acute on chronic diastolic heart failure -Judicious fluid management -Cardiac optimization 5. Hypertension -Diet and medication control 6. Chronic urinary retention with George 7. Depression. -Medical management 8. Hypothyroidism by history. -Synthroid 9. Anemia of chronic disease in addition to iron deficiency anemia. -Continue iron supplements. -Transfusion when necessary 10. Chronic pain syndrome. Continue pain management. Thank you Problems: Subjective 24 Hr Interval Summary Leukocytosis slowly improving. Tachyarrhythmia. No fevers, chills, nausea, vomiting, or abdominal pain. No abnormal vaginal discharge. No bloating. No cough, sz, bloating. No robles/dizzy/visual or neuro changes. Exam/Review of Systems Vital Signs Vitals Vital Signs Date Time Temp Pulse Resp B/P Pulse Ox O2 Delivery O2 Flow Rate FiO2 11/06/16 08:26 98.4 125 31 94/69 96 11/05/16 19:57 Nasal Cannula 2.0 Intake and Output 11/05/16 11/05/16 11/06/16 15:00 23:00 07:00 Intake Total 1250 ml 1240 ml Output Total 875 ml 2700 ml Balance 375 ml -1460 ml Exam Free Text/Dictation GENERAL: Elderly, cachectic, no acute distress. HEENT: Head is atraumatic, normocephalic. Pupils equal, round, reactive to light and accommodation. Oral mucosa is pink and moist. NECK: Supple, no cervical lymphadenopathy LUNGS: Normal respiratory effort CARDIAC: S1 and S2. Tachy, Irregular ABDOMEN: Flat, soft and nondistended. Nontender. No rebound or guarding. SKIN: Multiple decubitus wounds/ulcers buttock sacrum and right lower extremity EXTREMITIES: No edema. Pulses equal bilaterally, 2+. NEUROLOGICAL: Responsive VASCULAR: Refill is less than 2 seconds Results Result Diagram: 11/06/16 0430 11/06/16 0430 ZAK POSEY MD November 06, 2016 11:03
[2016-11-06] MEDS ORDERED: SOD CHLORIDE 0.9% 500 ML IV ONE (11:30)
--- NOTE | 2016-11-06 16:59 | CONS ---
Date/Time of Note Date/Time of Note DATE: 11/06/16 TIME: 16:57 Assessment/Plan Assessment/Plan Additional Assessment/Plan SIRS Intermittent hypotension Diastolic congestive heart failure, compensated Pulmonary hypertension Preserved ejection fraction Tricuspid valve regurgitation Lung cancer -Patient with hypotension this morning and transferred to ICU. Status post normal saline bolus with improvement in blood pressure. Denies dizziness, lightheadedness or palpitations. Would continue to hold any antihypertensives. Fluid management as per our nephrology colleagues. Consultation Date/Type/Reason Admit Date/Time Sep 26, 2016 at 20:07 Type of Consultation: cv Referring Provider: DRE LOBATO MD 24 HR Interval Summary Free Text/Dictation Patient transferred to ICU secondary to hypotension. Denies dizziness, lightheadedness, chest pain, palpitations or shortness of breath Exam/Review of Systems Vital Signs Vitals Vital Signs Date Time Temp Pulse Resp B/P Pulse Ox O2 Delivery O2 Flow Rate FiO2 11/06/16 16:30 111 28 100/71 94 11/06/16 16:00 98.4 11/06/16 15:00 2.0 11/06/16 12:55 Nasal Cannula Intake and Output 11/05/16 11/05/16 11/06/16 15:00 23:00 07:00 Intake Total 1250 ml 1240 ml Output Total 875 ml 2700 ml Balance 375 ml -1460 ml Exam No apparent distress Constitutional: alert, frail, oriented Head: normocephalic Neck: supple Respiratory: other (Coarse breath sounds bilaterally, no wheezing) Cardiovascular: other (S1-S2 heard), regular rate and rhythm Gastrointestinal: bowel sounds, non-tender, soft Extremities: other (No edema) Results Result Diagram: 11/06/16 0430 11/06/16 0430 Results 24 hrs Laboratory Tests Test 11/06/16 04:30 11/06/16 12:04 White Blood Count 16.5 H Red Blood Count 3.80 #L Hemoglobin 10.1 #L Hematocrit 32.2 #L Mean Corpuscular Volume 84.7 Mean Corpuscular Hemoglobin 26.6 L Mean Corpuscular Hemoglobin Concent 31.4 L Red Cell Distribution Width 16.7 H Platelet Count 398 Mean Platelet Volume 9.1 Neutrophils % 75.7 Lymphocytes % 11.9 L Monocytes % 8.4 Eosinophils % 2.8 Basophils % 0.5 Nucleated Red Blood Cells % 0.0 Neutrophils # 12.5 H Lymphocytes # 2.0 Monocytes # 1.4 H Eosinophils # 0.5 Basophils # 0.1 Nucleated Red Blood Cells # 0.0 Sodium Level 139 Potassium Level 3.7 Chloride Level 98 Carbon Dioxide Level 27 Anion Gap 18 H Blood Urea Nitrogen 27 H Creatinine 0.53 Glucose Level 126 Calcium Level 9.1 Lactic Acid Level 1.1 Medications Medications Current Medications Ondansetron HCl (Zofran Inj) 4 mg Q6 PRN IV NAUSEA AND/OR VOMITING; Start 09/26 at 22:30 Acetaminophen (Tylenol Tab) 650 mg Q6H PRN PO PAIN AND OR ELEVATED TEMP Last administered on 11/06/16 10:03; Admin Dose 650 MG; Start 09/26/16 at 23:00 Alprazolam (Xanax) 0.5 mg Q12 PRN PO ANXIETY Last administered on 10/29/16 14: 31; Admin Dose 0.5 MG; Start 09/26/16 at 23:00 Ascorbic Acid (Vitamin C) 500 mg BID PO Last administered on 11/06/16 08:46; Admin Dose 500 MG; Start 09/27/16 at 09:00 Atorvastatin Calcium (Lipitor) 20 mg QHS PO Last administered on 11/05/16 20: 10; Admin Dose 20 MG; Start 09/27/16 at 21:00 Diazepam (Valium) 10 mg DAILY PO Last administered on 11/06/16 08:47; Admin Dose 10 MG; Start 09/27/16 at 09:00 Docusate Sodium (Colace) 100 mg Q12H PRN PO CONSTIPATION; Start 09/26/16 at 23: 00 Duloxetine HCl (Cymbalta) 20 mg DAILY PO Last administered on 11/06/16 08:47; Admin Dose 20 MG; Start 09/27/16 at 09:00 Zolpidem Tartrate (Ambien) 5 mg QHS PRN PO INSOMNIA Last administered on 00:22; Admin Dose 5 MG; Start 09/26/16 at 23:00 Collagenase (Santyl) 1 applic DAILY TOP Last administered on 11/05/16 09:54; Admin Dose 1 APPLIC; Start 09/27/16 at 09:00 Collagenase (Santyl) 1 applic PRN PRN TOP SOILED OR DISLODGED DRESSING; Start 09/27/16 at 05:00 Lansoprazole (Prevacid) 30 mg DAILY@06 GTB Last administered on 11/06/16 06:22 ; Admin Dose 30 MG; Start 09/28/16 at 06:00 Cromolyn Sodium (Nasalcrom) 1 spray QID NASAL Last administered on 11/06/16 13 :41; Admin Dose 1 SPRAY; Start 09/29/16 at 11:02 Phenol (Cepastat Lozenge) 1 lozenge Q2H PRN MT SORE THROAT Last administered on 11/02/16 01:02; Admin Dose 1 LOZENGE; Start 10/01/16 at 19:00 IV Flush (NS 10 ml) 10 ml PRN PRN IV IV PROTOCOL Last administered on 08:08; Admin Dose 10 ML; Start 10/02/16 at 19:00 Lactobacillus Acidophilus (Florajen3 Capsule) 1 each TID PO Last administered on 11/06/16 10:00; Admin Dose 1 EACH; Start 10/03/16 at 21:00 Hydromorphone HCl (Dilaudid) 0.5 mg Q4H PRN IV PAIN Last administered on 15:50; Admin Dose 0.5 MG; Start 10/06/16 at 18:30 Promethazine HCl/ Codeine (Phenergan/ Codeine) 10 ml BID PRN PO COUGH Last administered on 11/06/16 10:03; Admin Dose 10 ML; Start 10/07/16 at 20:30 Morphine Sulfate (Ms Contin (Er)) 60 mg Q6 PO Last administered on 10/21/16 12: 28; Admin Dose 60 MG; Start 10/09/16 at 12:00; Status Future Hold Potassium Chloride (Potassium Chloride Pwd/Soln) 20 meq DAILY GTB Last administered on 11/06/16 08:46; Admin Dose 20 MEQ; Start 10/30/16 at 12:00 Sodium Chloride (Nacl) 1 gm BID PO Last administered on 11/06/16 08:47; Admin Dose 1 GM; Start 11/01/16 at 21:00 Trimethoprim/ Sulfamethoxazole (Bactrim (Ds)) 1 tab BID PO Last administered on 11/06/16 08:46; Admin Dose 1 TAB; Start 11/02/16 at 12:00 Artemio Tipton DO November 06, 2016 16:59
--- NOTE | 2016-11-06 17:00 | PN ---
DATE: 11/06/2016 INFECTIOUS DISEASE PROGRESS NOTE SUBJECTIVE: Patient was earlier tachycardic and tachypneic and was transferred to ICU, currently lying comfortably in bed, very weak and lethargic but arousable. VITAL SIGNS: Temperature 98.1, pulse 98, respirations 24, blood pressure 91/65 , saturation 98% on 2 liters nasal cannula. WBC 16.5, H and H 10.1 and 32.2, platelets 398, neutrophils 75.7, no bands. BUN 27, creatinine 0.53. MICROBIOLOGY: Urine culture grew multidrug resistant Acinetobacter baumannii susceptible to Bactrim. ANTIMICROBIALS: The patient is on Bactrim. INDWELLINGS: PEG, PICC line placed on admission on September 2016. PHYSICAL EXAMINATION: GENERAL: This is a cachectic elderly woman who is in no distress. HEENT: Head atraumatic, normocephalic. Sclerae anicteric. Buccal mucosa dry. NECK: Supple, trachea midline. CHEST: Rise symmetrical. Breath sounds diminished to bases. HEART: S1, S2. ABDOMEN: Soft. Bowel tones present. EXTREMITIES: No cyanosis. ASSESSMENT: 1. Recurrent urinary tract infection, remains on Bactrim. 2. Unstageable sacral decubitus, status post debridement with wound looks clean as per discussion with Dr. Sinclair, wound VAC present. 3. Cachexia secondary to lung cancer. 4. Hypertension. 5. Anemia. 6. Failure to thrive. PLAN: The patient remains hemodynamically stable. We will continue her on current regimen in regards to antibiotics. We will panculture her today. Order a chest x-ray. Continue local wound care as per surgical recommendations. Dictated By: RUBIN MAYEN DOCK LOADER for JUAN COLLIER/SANDER Conf#: [id number] DID#: [id number] SIMEON
--- NOTE | 2016-11-06 17:26 | RADRPT ---
PROCEDURE: Chest Radiograph. CLINICAL INDICATION: Pneumonia TECHNIQUE: Single frontal chest radiograph. COMPARISON: Chest radiograph 10/31/2016 FINDINGS: A right upper extremity PICC remains in place with distal tip in the region of the cavoatrial juncti on. Heart size is within normal limits. Atherosclerotic calcifications are present. There is a 9. 3 cm ovoid opacity in the left mid lung zone which may represent a rounded consolidation or pulmonar y mass. There is mild bronchial wall thickening bilaterally which may represent acute or chronic br onchitis.. There is a stable interstitial prominence. No pleural effusion is identified. The bon es are intact. IMPRESSION: 1. Stable radiographic appearance of chest compared to 10/31/2016. Persistent large ovoid opacity in the left mid to lower lung concern for pulmonary mass. 2. Bronchial wall thickening and interstitial opacities consistent with acute or chronic bronchitis . 3. Atherosclerotic vascular disease. RPTAT: JJ .Yaakov Hill MD, MD Date Time Electronically viewed and signed by .Yaakov Hill MD, on 11/06/2016 17:26 .A/
--- NOTE | 2016-11-06 17:41 | CONS ---
Date/Time of Note Date/Time of Note DATE: 11/06/16 TIME: 17:39 Assessment/Plan Assessment/Plan Additional Assessment/Plan 1. Hyponatremia, multifactorial - pt likey has Component of SAIDH causing hypoantreia, due to acute on chronic pain 2. Status post acute kidney injury on chronic kidney disease due to systemic inflammatory response syndrome. 3. Sepsis, possible septic shock 4. History of recurrent polymicrobial urinary tract infections. 5. History of dementia. 6. History of previous cerebrovascular accident. 7. History of chronic obstructive pulmonary disease, recently had acute respiratory failure secondary to chronic obstructive pulmonary disease exacerbation. 8. History of urinary retention with a chronic George catheter in place. 9. Chronic debility with cachexia. 10. Multiple decubitus ulcers with a history of debridement. 11. History of degenerative joint disease of spine. 12. History of hypertension and hypertensive heart disease with mild to moderate concentric left ventricular hypertrophy and echocardiogram with diastolic dysfunction stage I. PLAN: SAIDH causing hypoantreia, Na stable today BP labile today, will give NS 250 cc Bolus x 1 then if continue to run low then consider starting Levophed gtt s/p one dose of tolvaptan 15 mg on 10/24/16- Na normal on Na Chloride tablet 1 gram PO BID monitor electrolytes will follow up Consultation Date/Type/Reason Admit Date/Time Sep 26, 2016 at 20:07 Type of Consultation: NEPHROLOGY Referring Provider: DRE LOBATO MD 24 HR Interval Summary Free Text/Dictation pt transferred to ICU due to Hypotension, BP systolic 90s, afebrile Exam/Review of Systems Vital Signs Vitals Vital Signs Date Time Temp Pulse Resp B/P Pulse Ox O2 Delivery O2 Flow Rate FiO2 11/06/16 16:30 111 28 100/71 94 11/06/16 16:00 98.4 11/06/16 15:00 2.0 11/06/16 12:55 Nasal Cannula Intake and Output 11/05/16 11/05/16 11/06/16 15:00 23:00 07:00 Intake Total 1250 ml 1240 ml Output Total 875 ml 2700 ml Balance 375 ml -1460 ml Results Result Diagram: 11/06/16 0430 11/06/16 0430 Results 24 hrs Laboratory Tests Test 11/06/16 04:30 11/06/16 12:04 White Blood Count 16.5 H Red Blood Count 3.80 #L Hemoglobin 10.1 #L Hematocrit 32.2 #L Mean Corpuscular Volume 84.7 Mean Corpuscular Hemoglobin 26.6 L Mean Corpuscular Hemoglobin Concent 31.4 L Red Cell Distribution Width 16.7 H Platelet Count 398 Mean Platelet Volume 9.1 Neutrophils % 75.7 Lymphocytes % 11.9 L Monocytes % 8.4 Eosinophils % 2.8 Basophils % 0.5 Nucleated Red Blood Cells % 0.0 Neutrophils # 12.5 H Lymphocytes # 2.0 Monocytes # 1.4 H Eosinophils # 0.5 Basophils # 0.1 Nucleated Red Blood Cells # 0.0 Sodium Level 139 Potassium Level 3.7 Chloride Level 98 Carbon Dioxide Level 27 Anion Gap 18 H Blood Urea Nitrogen 27 H Creatinine 0.53 Glucose Level 126 Calcium Level 9.1 Lactic Acid Level 1.1 Medications Medications Current Medications Ondansetron HCl (Zofran Inj) 4 mg Q6 PRN IV NAUSEA AND/OR VOMITING; Start 09/26 at 22:30 Acetaminophen (Tylenol Tab) 650 mg Q6H PRN PO PAIN AND OR ELEVATED TEMP Last administered on 11/06/16 17:20; Admin Dose 650 MG; Start 09/26/16 at 23:00 Alprazolam (Xanax) 0.5 mg Q12 PRN PO ANXIETY Last administered on 10/29/16 14: 31; Admin Dose 0.5 MG; Start 09/26/16 at 23:00 Ascorbic Acid (Vitamin C) 500 mg BID PO Last administered on 11/06/16 08:46; Admin Dose 500 MG; Start 09/27/16 at 09:00 Atorvastatin Calcium (Lipitor) 20 mg QHS PO Last administered on 11/05/16 20: 10; Admin Dose 20 MG; Start 09/27/16 at 21:00 Diazepam (Valium) 10 mg DAILY PO Last administered on 11/06/16 08:47; Admin Dose 10 MG; Start 09/27/16 at 09:00 Docusate Sodium (Colace) 100 mg Q12H PRN PO CONSTIPATION; Start 09/26/16 at 23: 00 Duloxetine HCl (Cymbalta) 20 mg DAILY PO Last administered on 11/06/16 08:47; Admin Dose 20 MG; Start 09/27/16 at 09:00 Zolpidem Tartrate (Ambien) 5 mg QHS PRN PO INSOMNIA Last administered on 00:22; Admin Dose 5 MG; Start 09/26/16 at 23:00 Collagenase (Santyl) 1 applic DAILY TOP Last administered on 11/05/16 09:54; Admin Dose 1 APPLIC; Start 09/27/16 at 09:00 Collagenase (Santyl) 1 applic PRN PRN TOP SOILED OR DISLODGED DRESSING; Start 09/27/16 at 05:00 Lansoprazole (Prevacid) 30 mg DAILY@06 GTB Last administered on 11/06/16 06:22 ; Admin Dose 30 MG; Start 09/28/16 at 06:00 Cromolyn Sodium (Nasalcrom) 1 spray QID NASAL Last administered on 11/06/16 17 :36; Admin Dose 1 SPRAY; Start 09/29/16 at 11:02 Phenol (Cepastat Lozenge) 1 lozenge Q2H PRN MT SORE THROAT Last administered on 11/02/16 01:02; Admin Dose 1 LOZENGE; Start 10/01/16 at 19:00 IV Flush (NS 10 ml) 10 ml PRN PRN IV IV PROTOCOL Last administered on 08:08; Admin Dose 10 ML; Start 10/02/16 at 19:00 Lactobacillus Acidophilus (Florajen3 Capsule) 1 each TID PO Last administered on 11/06/16 10:00; Admin Dose 1 EACH; Start 10/03/16 at 21:00 Hydromorphone HCl (Dilaudid) 0.5 mg Q4H PRN IV PAIN Last administered on 15:50; Admin Dose 0.5 MG; Start 10/06/16 at 18:30 Promethazine HCl/ Codeine (Phenergan/ Codeine) 10 ml BID PRN PO COUGH Last administered on 11/06/16 10:03; Admin Dose 10 ML; Start 10/07/16 at 20:30 Morphine Sulfate (Ms Contin (Er)) 60 mg Q6 PO Last administered on 10/21/16 12: 28; Admin Dose 60 MG; Start 10/09/16 at 12:00; Status Future Hold Potassium Chloride (Potassium Chloride Pwd/Soln) 20 meq DAILY GTB Last administered on 11/06/16 08:46; Admin Dose 20 MEQ; Start 10/30/16 at 12:00 Sodium Chloride (Nacl) 1 gm BID PO Last administered on 11/06/16 08:47; Admin Dose 1 GM; Start 11/01/16 at 21:00 Trimethoprim/ Sulfamethoxazole (Bactrim (Ds)) 1 tab BID PO Last administered on 11/06/16 08:46; Admin Dose 1 TAB; Start 11/02/16 at 12:00 DIONNE SAUCEDA MD November 06, 2016 17:41
--- NOTE | 2016-11-06 17:55 | PN ---
DATE: 11/06/2016 SUBJECTIVE: Followup on patient with persistent leukocytosis, left lung squamous carcinoma, chronic obstructive pulmonary disease, multiple decubitus ulcers, cachexia and chronic debility. The patie nt became hypotensive, tachycardic, tachypneic and was transferred to ICU given IV fluid bolus with some improvement in vital signs. Current, patient is awake, alert to name and situation. No fever, nausea, vomiting reported per RN. OBJECTIVE: VITAL SIGNS: Temperature 98.1, pulse is 102, blood pressure 92/62, respiratory rate 24, oxygen satu ration 93% on 2 liters nasal cannula. GENERAL: Cachectic female currently is awake, alert. LUNGS: Clear bilaterally, slightly diminished at the bases. HEART: The patient is tachycardic. Normal S1, S2. No murmurs. ABDOMEN: Flat, soft, nondistended. G-tube present. EXTREMITIES: Normal pulses, no edema. SKIN: Multiple decubitus ulcers including bilateral buttocks and bilateral lower extremities and wo und VAC to sacral decubitus. NEUROLOGIC: The patient is awake, alert to name and situation. LABORATORY AND DIAGNOSTIC DATA FOR TODAY: CBC: White blood cells 16.5, hemoglobin 10.1, hematocrit 32.2, platelets 398. Chemistry: Sodium is 139, potassium 3.7, chloride 98, carbon dioxide 27, ani on gap 18, BUN is 27, creatinine 0.53, glucose 129, calcium 9.1. ASSESSMENT AND PLAN: 1. Hypertension, rule out sepsis. Continue IV fluids. We will obtain lactic acid. Continue close monitoring in intensive care unit. 2. Persistent leukocytosis. Patient complete treatment with antibiotics, currently on Bactrim. 3. Recurrent urinary tract infection with George catheter. Continue to monitor. 4. Chronic obstructive pulmonary disease. Continue breathing treatment. 5. Left lung squamous carcinoma. The patient is not a candidate for chemotherapy per previous asse ssment. 6. Multiple decubitus ulcers, status post wound debridement by Dr. Sinclair of sacrococcygeal wound. The patient is currently on wound VAC. Continue to follow up surgical recommendations. 7. Dysphagia with G-tube placement. Continue feeding through G-tube, strict aspiration precaution. 8. Hypothyroidism. Continue Synthroid. 9. Anemia of chronic disease. Continue to monitor hemoglobin and hematocrit. 10. Hyponatremia, resolved. 11. Chronic pain. We will continue Prevacid for peptic ulcer disease prophylaxis and sequential co mpression device for deep venous thrombosis prophylaxis. Further recommendations based on clinical course. Plan of care discussed with Dr. Lobato. Dictated By: REBECCA ISLAS CERTIFIED NOVELL ENGINEER for DRE LOBATO MD SR/NTS Conf#: [id number] DID#: [id number]
[2016-11-06] MEDS: ATORVASTATIN 20 MG TAB PO SCH (20:57)
[2016-11-07] VITALS (33 sets, daily range): BP systolic 76–135; BP diastolic 60–100; PULSE 96–130; RESP 19–40
[2016-11-07] MEDS: HYDROmorphONE 1 MG/ML SYG IV PRN ×6 (00:20→21:47)
[2016-11-07] MEDS: ACETAMINOPHEN 325 MG TAB PO PRN (01:39)
[2016-11-07] MEDS: PROMETHAZINE/CODEINE 5ML CUP PO PRN ×2 (02:44→17:27)
[2016-11-07 05:57] LABS: ADD SCAN DIFF NO
[2016-11-07] MEDS: LEVOTHYROXINE 125 MCG TAB PO SCH (06:01)
[2016-11-07] MEDS: LANSOPRAZOLE 30 MG CAP GTB SCH (06:01)
[2016-11-07 06:04] LABS: BASOPHIL # 0.1 10^3/ul (0.0-0.1); BASOPHILS % 0.6 % (0.0-2.0); EOSINOPHILS # 0.6 10^3/ul (0.0-0.5); EOSINOPHILS % 3.9 % (0.0-7.0); HEMATOCRIT 32.5 % (37.0-47.0); HEMOGLOBIN 9.9 g/dl (12.0-16.0); LYMPHOCYTES # 1.8 10^3/ul (0.8-2.9); LYMPHOCYTES % 11.6 % (15.0-51.0); MEAN CORPUSCULAR HEMOGLOBIN 26.7 pg (29.0-33.0); MEAN CORPUSCULAR HGB CONC 30.5 g/dl (32.0-37.0); MEAN CORPUSCULAR VOLUME 87.6 fl (82.0-101.0); MEAN PLATELET VOLUME 9.7 fl (7.4-10.4); MONOCYTE # 1.4 10^3/ul (0.3-0.9); MONOCYTES % 8.8 % (0.0-11.0); NEUTROPHIL # 11.5 10^3/ul (1.6-7.5); NEUTROPHILS % 74.3 % (39.0-77.0); PLATELET COUNT 397 10^3/UL (140-415); RED BLOOD COUNT 3.71 10^6/ul (4.20-5.40); WHITE BLOOD COUNT 15.4 10^3/ul (4.8-10.8)
[2016-11-07 06:38] LABS: POTASSIUM 4.2 mmol/L (3.5-5.1)
[2016-11-07 06:40] LABS: CREATININE 0.56 mg/dl (0.44-1.00)
[2016-11-07 06:41] LABS: CALCIUM 9.1 mg/dl (8.4-10.2)
--- NOTE | 2016-11-07 08:30 | CONS ---
Date/Time of Note Date/Time of Note DATE: 11/07/16 TIME: 08:28 Assessment/Plan Assessment/Plan Additional Assessment/Plan 1. Hyponatremia, multifactorial - pt likey has Component of SAIDH causing hypoantreia, due to acute on chronic pain 2. Status post acute kidney injury on chronic kidney disease due to systemic inflammatory response syndrome. 3. Sepsis, possible septic shock 4. History of recurrent polymicrobial urinary tract infections. 5. History of dementia. 6. History of previous cerebrovascular accident. 7. History of chronic obstructive pulmonary disease, recently had acute respiratory failure secondary to chronic obstructive pulmonary disease exacerbation. 8. History of urinary retention with a chronic George catheter in place. 9. Chronic debility with cachexia. 10. Multiple decubitus ulcers with a history of debridement. 11. History of degenerative joint disease of spine. 12. History of hypertension and hypertensive heart disease with mild to moderate concentric left ventricular hypertrophy and echocardiogram with diastolic dysfunction stage I. PLAN: SAIDH causing hypoantreia, Na stable today BP labile today, received yesterday NS 250 cc Bolus x 1 then if continue to run low then consider starting Levophed gtt s/p one dose of tolvaptan 15 mg on 10/24/16- Na normal today on Na Chloride tablet 1 gram PO BID monitor electrolytes will follow up Consultation Date/Type/Reason Admit Date/Time Sep 26, 2016 at 20:07 Type of Consultation: NEPHROLOGY Referring Provider: DRE LOBATO MD 24 HR Interval Summary Free Text/Dictation BP remains labile, standing order for levophed Exam/Review of Systems Vital Signs Vitals Vital Signs Date Time Temp Pulse Resp B/P Pulse Ox O2 Delivery O2 Flow Rate FiO2 11/07/16 06:00 104 31 109/81 98 Nasal Cannula 3.0 11/07/16 04:00 98.3 Intake and Output 11/06/16 11/06/16 11/07/16 15:00 23:00 07:00 Intake Total 620 ml 400 ml 570 ml Output Total 530 ml 300 ml 387 ml Balance 90 ml 100 ml 183 ml Results Result Diagram: 11/07/16 0430 11/07/16 0430 Results 24 hrs Laboratory Tests Test 11/06/16 12:04 11/07/16 04:30 11/07/16 06:17 Lactic Acid Level 1.1 White Blood Count 15.4 H Red Blood Count 3.71 L Hemoglobin 9.9 L Hematocrit 32.5 L Mean Corpuscular Volume 87.6 Mean Corpuscular Hemoglobin 26.7 L Mean Corpuscular Hemoglobin Concent 30.5 L Red Cell Distribution Width 17.0 H Platelet Count 397 Mean Platelet Volume 9.7 Neutrophils % 74.3 Lymphocytes % 11.6 L Monocytes % 8.8 Eosinophils % 3.9 Basophils % 0.6 Nucleated Red Blood Cells % 0.0 Neutrophils # 11.5 H Lymphocytes # 1.8 Monocytes # 1.4 H Eosinophils # 0.6 H Basophils # 0.1 Nucleated Red Blood Cells # 0.0 Sodium Level 140 Potassium Level 4.2 Chloride Level 99 Carbon Dioxide Level 28 Anion Gap 17 H Blood Urea Nitrogen 27 H Creatinine 0.56 Glucose Level 130 Calcium Level 9.1 Lab Scanned Report BLOOD TRANSFUSION Medications Medications Current Medications Ondansetron HCl (Zofran Inj) 4 mg Q6 PRN IV NAUSEA AND/OR VOMITING; Start 09/26 at 22:30 Acetaminophen (Tylenol Tab) 650 mg Q6H PRN PO PAIN AND OR ELEVATED TEMP Last administered on 11/07/16 01:39; Admin Dose 650 MG; Start 09/26/16 at 23:00 Alprazolam (Xanax) 0.5 mg Q12 PRN PO ANXIETY Last administered on 10/29/16 14: 31; Admin Dose 0.5 MG; Start 09/26/16 at 23:00 Ascorbic Acid (Vitamin C) 500 mg BID PO Last administered on 11/06/16 20:57; Admin Dose 500 MG; Start 09/27/16 at 09:00 Atorvastatin Calcium (Lipitor) 20 mg QHS PO Last administered on 11/06/16 20: 57; Admin Dose 20 MG; Start 09/27/16 at 21:00 Diazepam (Valium) 10 mg DAILY PO Last administered on 11/06/16 08:47; Admin Dose 10 MG; Start 09/27/16 at 09:00 Docusate Sodium (Colace) 100 mg Q12H PRN PO CONSTIPATION; Start 09/26/16 at 23: 00 Duloxetine HCl (Cymbalta) 20 mg DAILY PO Last administered on 11/06/16 08:47; Admin Dose 20 MG; Start 09/27/16 at 09:00 Zolpidem Tartrate (Ambien) 5 mg QHS PRN PO INSOMNIA Last administered on 00:22; Admin Dose 5 MG; Start 09/26/16 at 23:00 Collagenase (Santyl) 1 applic DAILY TOP Last administered on 11/05/16 09:54; Admin Dose 1 APPLIC; Start 09/27/16 at 09:00 Collagenase (Santyl) 1 applic PRN PRN TOP SOILED OR DISLODGED DRESSING; Start 09/27/16 at 05:00 Lansoprazole (Prevacid) 30 mg DAILY@06 GTB Last administered on 11/07/16 06:01 ; Admin Dose 30 MG; Start 09/28/16 at 06:00 Cromolyn Sodium (Nasalcrom) 1 spray QID NASAL Last administered on 11/06/16 20 :58; Admin Dose 1 SPRAY; Start 09/29/16 at 11:02 Phenol (Cepastat Lozenge) 1 lozenge Q2H PRN MT SORE THROAT Last administered on 11/02/16 01:02; Admin Dose 1 LOZENGE; Start 10/01/16 at 19:00 IV Flush (NS 10 ml) 10 ml PRN PRN IV IV PROTOCOL Last administered on 08:08; Admin Dose 10 ML; Start 10/02/16 at 19:00 Lactobacillus Acidophilus (Florajen3 Capsule) 1 each TID PO Last administered on 11/06/16 22:11; Admin Dose 1 EACH; Start 10/03/16 at 21:00 Hydromorphone HCl (Dilaudid) 0.5 mg Q4H PRN IV PAIN Last administered on 03:54; Admin Dose 0.5 MG; Start 10/06/16 at 18:30 Promethazine HCl/ Codeine (Phenergan/ Codeine) 10 ml BID PRN PO COUGH Last administered on 11/07/16 02:44; Admin Dose 10 ML; Start 10/07/16 at 20:30 Morphine Sulfate (Ms Contin (Er)) 60 mg Q6 PO Last administered on 10/21/16 12: 28; Admin Dose 60 MG; Start 10/09/16 at 12:00; Status Future Hold Potassium Chloride (Potassium Chloride Pwd/Soln) 20 meq DAILY GTB Last administered on 11/06/16 08:46; Admin Dose 20 MEQ; Start 10/30/16 at 12:00 Sodium Chloride (Nacl) 1 gm BID PO Last administered on 11/06/16 20:57; Admin Dose 1 GM; Start 11/01/16 at 21:00 Trimethoprim/ Sulfamethoxazole (Bactrim (Ds)) 1 tab BID PO Last administered on 11/06/16 22:11; Admin Dose 1 TAB; Start 11/02/16 at 12:00 DIONNE SAUCEDA MD November 07, 2016 08:30
[2016-11-07] MEDS: CROMOLYN 4% 26ML NAS INH NASAL SCH ×4 (08:38→21:00)
[2016-11-07] MEDS: POTASSIUM CHLORIDE 20 MEQ POWDER FOR ORAL SOLN GTB SCH (08:38)
[2016-11-07] MEDS: DULOXETINE 20 MG CAP DR PO SCH (08:38)
[2016-11-07] MEDS: TRIMETHOPRIM/SULFAMETHOX (DS) TAB PO SCH ×2 (08:38→21:20)
[2016-11-07] MEDS: L ACIDOPHIL/B LACTIS/B LONGUM CAPSULE PO SCH ×3 (08:38→21:20)
[2016-11-07] MEDS: SODIUM CHLORIDE 1 GM TAB PO SCH ×2 (08:39→21:20)
[2016-11-07] MEDS: COLLAGENASE 30 GM TUBE TOP SCH (08:39)
[2016-11-07] MEDS: ASCORBIC ACID 500 MG TAB PO SCH ×2 (08:39→21:20)
[2016-11-07] MEDS: DIAZEPAM 5 MG TAB PO SCH (08:44)
--- NOTE | 2016-11-07 13:12 | CONS ---
Date/Time of Note Date/Time of Note DATE: 11/07/16 TIME: 13:11 Assessment/Plan Assessment/Plan Additional Assessment/Plan SIRS Intermittent hypotension Diastolic congestive heart failure, compensated Pulmonary hypertension Preserved ejection fraction Tricuspid valve regurgitation Lung cancer -Blood pressure trend improving but still with episodes of hypotension. Denies symptoms. Would continue to hold any antihypertensive medications. Consultation Date/Type/Reason Admit Date/Time Sep 26, 2016 at 20:07 Type of Consultation: cv Referring Provider: DRE LOBATO MD 24 HR Interval Summary Free Text/Dictation Denies dizziness, shortness of breath, lightheadedness Exam/Review of Systems Vital Signs Vitals Vital Signs Date Time Temp Pulse Resp B/P Pulse Ox O2 Delivery O2 Flow Rate FiO2 11/07/16 12:00 105 11/07/16 09:14 26 92/71 99 11/07/16 09:00 Nasal Cannula 3.0 11/07/16 08:00 98.5 Intake and Output 11/06/16 11/06/16 11/07/16 15:00 23:00 07:00 Intake Total 620 ml 400 ml 570 ml Output Total 530 ml 300 ml 387 ml Balance 90 ml 100 ml 183 ml Exam No apparent distress Constitutional: alert, frail, oriented Head: normocephalic Respiratory: other (Coarse breath sounds bilaterally, no wheezing) Cardiovascular: other (S1-S2 heard), regular rate and rhythm Gastrointestinal: bowel sounds, non-tender, soft Extremities: other (No edema) Results Result Diagram: 11/07/16 0430 11/07/16 0430 Results 24 hrs Laboratory Tests Test 11/07/16 04:30 11/07/16 06:17 White Blood Count 15.4 H Red Blood Count 3.71 L Hemoglobin 9.9 L Hematocrit 32.5 L Mean Corpuscular Volume 87.6 Mean Corpuscular Hemoglobin 26.7 L Mean Corpuscular Hemoglobin Concent 30.5 L Red Cell Distribution Width 17.0 H Platelet Count 397 Mean Platelet Volume 9.7 Neutrophils % 74.3 Lymphocytes % 11.6 L Monocytes % 8.8 Eosinophils % 3.9 Basophils % 0.6 Nucleated Red Blood Cells % 0.0 Neutrophils # 11.5 H Lymphocytes # 1.8 Monocytes # 1.4 H Eosinophils # 0.6 H Basophils # 0.1 Nucleated Red Blood Cells # 0.0 Sodium Level 140 Potassium Level 4.2 Chloride Level 99 Carbon Dioxide Level 28 Anion Gap 17 H Blood Urea Nitrogen 27 H Creatinine 0.56 Glucose Level 130 Calcium Level 9.1 Lab Scanned Report BLOOD TRANSFUSION Medications Medications Current Medications Ondansetron HCl (Zofran Inj) 4 mg Q6 PRN IV NAUSEA AND/OR VOMITING; Start 09/26 at 22:30 Acetaminophen (Tylenol Tab) 650 mg Q6H PRN PO PAIN AND OR ELEVATED TEMP Last administered on 11/07/16 01:39; Admin Dose 650 MG; Start 09/26/16 at 23:00 Alprazolam (Xanax) 0.5 mg Q12 PRN PO ANXIETY Last administered on 10/29/16 14: 31; Admin Dose 0.5 MG; Start 09/26/16 at 23:00 Ascorbic Acid (Vitamin C) 500 mg BID PO Last administered on 11/07/16 08:39; Admin Dose 500 MG; Start 09/27/16 at 09:00 Atorvastatin Calcium (Lipitor) 20 mg QHS PO Last administered on 11/06/16 20: 57; Admin Dose 20 MG; Start 09/27/16 at 21:00 Diazepam (Valium) 10 mg DAILY PO Last administered on 11/07/16 08:44; Admin Dose 10 MG; Start 09/27/16 at 09:00 Docusate Sodium (Colace) 100 mg Q12H PRN PO CONSTIPATION; Start 09/26/16 at 23: 00 Duloxetine HCl (Cymbalta) 20 mg DAILY PO Last administered on 11/07/16 08:38; Admin Dose 20 MG; Start 09/27/16 at 09:00 Zolpidem Tartrate (Ambien) 5 mg QHS PRN PO INSOMNIA Last administered on 00:22; Admin Dose 5 MG; Start 09/26/16 at 23:00 Collagenase (Santyl) 1 applic DAILY TOP Last administered on 11/05/16 09:54; Admin Dose 1 APPLIC; Start 09/27/16 at 09:00 Collagenase (Santyl) 1 applic PRN PRN TOP SOILED OR DISLODGED DRESSING; Start 09/27/16 at 05:00 Lansoprazole (Prevacid) 30 mg DAILY@06 GTB Last administered on 11/07/16 06:01 ; Admin Dose 30 MG; Start 09/28/16 at 06:00 Cromolyn Sodium (Nasalcrom) 1 spray QID NASAL Last administered on 11/07/16 08 :38; Admin Dose 1 SPRAY; Start 09/29/16 at 11:02 Phenol (Cepastat Lozenge) 1 lozenge Q2H PRN MT SORE THROAT Last administered on 11/02/16 01:02; Admin Dose 1 LOZENGE; Start 10/01/16 at 19:00 IV Flush (NS 10 ml) 10 ml PRN PRN IV IV PROTOCOL Last administered on 08:08; Admin Dose 10 ML; Start 10/02/16 at 19:00 Lactobacillus Acidophilus (Florajen3 Capsule) 1 each TID PO Last administered on 11/07/16 08:38; Admin Dose 1 EACH; Start 10/03/16 at 21:00 Hydromorphone HCl (Dilaudid) 0.5 mg Q4H PRN IV PAIN Last administered on 03:54; Admin Dose 0.5 MG; Start 10/06/16 at 18:30 Promethazine HCl/ Codeine (Phenergan/ Codeine) 10 ml BID PRN PO COUGH Last administered on 11/07/16 02:44; Admin Dose 10 ML; Start 10/07/16 at 20:30 Potassium Chloride (Potassium Chloride Pwd/Soln) 20 meq DAILY GTB Last administered on 11/07/16 08:38; Admin Dose 20 MEQ; Start 10/30/16 at 12:00 Sodium Chloride (Nacl) 1 gm BID PO Last administered on 11/07/16 08:39; Admin Dose 1 GM; Start 11/01/16 at 21:00 Trimethoprim/ Sulfamethoxazole (Bactrim (Ds)) 1 tab BID PO Last administered on 11/07/16 08:38; Admin Dose 1 TAB; Start 11/02/16 at 12:00 Artemio Tipton DO November 07, 2016 13:12
--- NOTE | 2016-11-07 15:45 | PN ---
Date/Time of Note Date/Time of Note DATE: 11/07/16 TIME: 15:42 Assessment/Plan VTE Prophylaxis VTE Prophylaxis Intervention: SCD's Lines/Catheters IV [facility] (from [facility]): PICC Line Central line still needed: Yes Urinary Cath still in place: Yes Reason Cath still needed: urinary retention Assessment/Plan Chief Complaint/Hosp Course Patient's continues to be tachypneic and slightly tachycardic, afebrile, blood pressure is within normal limits, lactic acid is 1.1, okay to transfer and monitor patient on telemetry floor. ASSESSMENT AND PLAN: 1. Hypotension, improved after IV fluid bolus. 2. Persistent leukocytosis. Patient complete treatment with antibiotics, currently on Bactrim. 3. Recurrent urinary tract infection with George catheter. Continue to monitor. 4. Chronic obstructive pulmonary disease. Continue breathing treatment. 5. Left lung squamous carcinoma. The patient is not a candidate for chemotherapy per previous assessment. 6. Multiple decubitus ulcers, status post wound debridement by Dr. Sinclair of sacrococcygeal wound. The patient is currently on wound VAC. Continue to follow up surgical recommendations. 7. Dysphagia with G-tube placement. Continue feeding through G-tube, strict aspiration precaution. 8. Hypothyroidism. Continue Synthroid. 9. Anemia of chronic disease. Continue to monitor hemoglobin and hematocrit. 10. Hyponatremia, resolved. 11. Chronic pain. Continue Prevacid for peptic ulcer disease prophylaxis and sequential compression device for deep venous thrombosis prophylaxis. Further recommendations based on clinical course. Plan of care discussed with Dr. Dozier. Problems: Exam/Review of Systems Vital Signs Vitals Vital Signs Date Time Temp Pulse Resp B/P Pulse Ox O2 Delivery O2 Flow Rate FiO2 11/07/16 14:00 107 35 116/82 98 Nasal Cannula 11/07/16 12:00 98.1 11/07/16 10:00 3.0 Intake and Output 11/06/16 11/06/16 11/07/16 15:00 23:00 07:00 Intake Total 620 ml 400 ml 570 ml Output Total 530 ml 300 ml 387 ml Balance 90 ml 100 ml 183 ml Exam GENERAL: Cachectic female currently is awake, alert. LUNGS: Clear bilaterally, slightly diminished at the bases. HEART: The patient is tachycardic. Normal S1, S2. No murmurs. ABDOMEN: Flat, soft, nondistended. G-tube present. EXTREMITIES: Normal pulses, no edema. SKIN: Multiple decubitus ulcers including bilateral buttocks and bilateral lower extremities and wound VAC to sacral decubitus. NEUROLOGIC: The patient is awake, alert to name and situation. Results Result Diagram: 11/07/16 0430 11/07/16 0430 Results 24 hrs Laboratory Tests Test 11/07/16 04:30 11/07/16 06:17 White Blood Count 15.4 H Red Blood Count 3.71 L Hemoglobin 9.9 L Hematocrit 32.5 L Mean Corpuscular Volume 87.6 Mean Corpuscular Hemoglobin 26.7 L Mean Corpuscular Hemoglobin Concent 30.5 L Red Cell Distribution Width 17.0 H Platelet Count 397 Mean Platelet Volume 9.7 Neutrophils % 74.3 Lymphocytes % 11.6 L Monocytes % 8.8 Eosinophils % 3.9 Basophils % 0.6 Nucleated Red Blood Cells % 0.0 Neutrophils # 11.5 H Lymphocytes # 1.8 Monocytes # 1.4 H Eosinophils # 0.6 H Basophils # 0.1 Nucleated Red Blood Cells # 0.0 Sodium Level 140 Potassium Level 4.2 Chloride Level 99 Carbon Dioxide Level 28 Anion Gap 17 H Blood Urea Nitrogen 27 H Creatinine 0.56 Glucose Level 130 Calcium Level 9.1 Lab Scanned Report BLOOD TRANSFUSION Medications Medications Current Medications Ondansetron HCl (Zofran Inj) 4 mg Q6 PRN IV NAUSEA AND/OR VOMITING; Start 09/26 at 22:30 Acetaminophen (Tylenol Tab) 650 mg Q6H PRN PO PAIN AND OR ELEVATED TEMP Last administered on 11/07/16 01:39; Admin Dose 650 MG; Start 09/26/16 at 23:00 Alprazolam (Xanax) 0.5 mg Q12 PRN PO ANXIETY Last administered on 10/29/16 14: 31; Admin Dose 0.5 MG; Start 09/26/16 at 23:00 Ascorbic Acid (Vitamin C) 500 mg BID PO Last administered on 11/07/16 08:39; Admin Dose 500 MG; Start 09/27/16 at 09:00 Atorvastatin Calcium (Lipitor) 20 mg QHS PO Last administered on 11/06/16 20: 57; Admin Dose 20 MG; Start 09/27/16 at 21:00 Diazepam (Valium) 10 mg DAILY PO Last administered on 11/07/16 08:44; Admin Dose 10 MG; Start 09/27/16 at 09:00 Docusate Sodium (Colace) 100 mg Q12H PRN PO CONSTIPATION; Start 09/26/16 at 23: 00 Duloxetine HCl (Cymbalta) 20 mg DAILY PO Last administered on 11/07/16 08:38; Admin Dose 20 MG; Start 09/27/16 at 09:00 Zolpidem Tartrate (Ambien) 5 mg QHS PRN PO INSOMNIA Last administered on 00:22; Admin Dose 5 MG; Start 09/26/16 at 23:00 Collagenase (Santyl) 1 applic DAILY TOP Last administered on 11/05/16 09:54; Admin Dose 1 APPLIC; Start 09/27/16 at 09:00 Collagenase (Santyl) 1 applic PRN PRN TOP SOILED OR DISLODGED DRESSING; Start 09/27/16 at 05:00 Lansoprazole (Prevacid) 30 mg DAILY@06 GTB Last administered on 11/07/16 06:01 ; Admin Dose 30 MG; Start 09/28/16 at 06:00 Cromolyn Sodium (Nasalcrom) 1 spray QID NASAL Last administered on 11/07/16 08 :38; Admin Dose 1 SPRAY; Start 09/29/16 at 11:02 Phenol (Cepastat Lozenge) 1 lozenge Q2H PRN MT SORE THROAT Last administered on 11/02/16 01:02; Admin Dose 1 LOZENGE; Start 10/01/16 at 19:00 IV Flush (NS 10 ml) 10 ml PRN PRN IV IV PROTOCOL Last administered on 08:08; Admin Dose 10 ML; Start 10/02/16 at 19:00 Lactobacillus Acidophilus (Florajen3 Capsule) 1 each TID PO Last administered on 11/07/16 14:06; Admin Dose 1 EACH; Start 10/03/16 at 21:00 Hydromorphone HCl (Dilaudid) 0.5 mg Q4H PRN IV PAIN Last administered on 14:05; Admin Dose 0.5 MG; Start 10/06/16 at 18:30 Promethazine HCl/ Codeine (Phenergan/ Codeine) 10 ml BID PRN PO COUGH Last administered on 11/07/16 02:44; Admin Dose 10 ML; Start 10/07/16 at 20:30 Potassium Chloride (Potassium Chloride Pwd/Soln) 20 meq DAILY GTB Last administered on 11/07/16 08:38; Admin Dose 20 MEQ; Start 10/30/16 at 12:00 Sodium Chloride (Nacl) 1 gm BID PO Last administered on 11/07/16 08:39; Admin Dose 1 GM; Start 11/01/16 at 21:00 Trimethoprim/ Sulfamethoxazole (Bactrim (Ds)) 1 tab BID PO Last administered on 11/07/16 08:38; Admin Dose 1 TAB; Start 11/02/16 at 12:00 REBECCA ISLAS November 07, 2016 15:45
--- NOTE | 2016-11-07 19:00 | PN ---
DATE: 11/07/2016 SUBJECTIVE: No acute changes. The patient is lying comfortably in bed. No fevers. VITAL SIGNS: Temperature 98.5, pulse 98, respirations 24, blood pressure 92/71 , saturation 99% on 2 liters. WBC today 15.4; platelets 397, no shift, no bands. BUN 27, creatinine 0.56. MICROBIOLOGY: Blood cultures from yesterday preliminary negative. DIAGNOSTICS: Chest x-ray yesterday revealed stable radiographic appearance of the chest compared to 10/31/2016. INDWELLINGS: George, PICC line placed on 10/02/2016. PEG. ANTIMICROBIALS: The patient remains on oral Bactrim. PHYSICAL EXAMINATION: GENERAL: This is a cachectic elderly woman who is lethargic, in no distress. HEENT: Head atraumatic, normocephalic. Sclerae anicteric. Buccal mucosa dry. NECK: Supple, trachea midline. CHEST: Rise symmetrical. Breath sounds diminished to bases. HEART: S1, S2. ABDOMEN: Soft, bowel tones present. EXTREMITIES: Without cyanosis. ASSESSMENT: 1. Recurrent urinary tract infection. 2. Hypertension, possibly secondary to dehydration, status post fluid bolus with improvement. 3. Unstageable sacral wound, status post debridement with wound VAC application and wound colonized with multiple bacteria; no evidence of active infection as per discussion with surgery. 4. Cachexia. 5. Lung cancer. 6. Failure to thrive. PLAN: The patient remains stable. Continue present care. Continue on current antibiotics. Await for final cultures in. Dictated By: RUBIN MAYEN [employer] GRADER for [employer] Conf#: [id number] DID#: [id number] SIMEON
[2016-11-07] MEDS: ATORVASTATIN 20 MG TAB PO SCH (21:20)
[2016-11-07] MEDS: ZOLPIDEM 5 MG TAB PO PRN (21:20)
--- NOTE | 2016-11-07 23:22 | PN ---
Date/Time of Note Date/Time of Note DATE: 11/07/16 TIME: 23:18 Assessment/Plan Lines/Catheters IV C[facility]ter Type (from [facility]): PICC Line George in Place (from [facility]): Yes Assessment/Plan Chief Complaint/Hosp Course 1. Multiple decubitus ulcers with debris. Sacrococcygeal ulcer s/p exc boris . -Offload -Optimize nutrition -Vitamin C -Local care 2. UTI s/p abx 3. 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 Acute on chronic diastolic heart failure -Judicious fluid management -Cardiac optimization 5. Hypertension -Diet and medication control 6. Chronic urinary retention with George 7. Depression. -Medical management 8. Hypothyroidism by history. -Synthroid 9. Anemia of chronic disease in addition to iron deficiency anemia. -Continue iron supplements. -Transfusion when necessary 10. Chronic pain syndrome. Continue pain management. Thank you Problems: Subjective 24 Hr Interval Summary Leukocytosis slowly improving. Tachyarrhythmia. No fevers, chills, nausea, vomiting, or abdominal pain. No abnormal vaginal discharge. No bloating. No cough, sz, bloating. No robles/dizzy/visual or neuro changes. Exam/Review of Systems Vital Signs Vitals Vital Signs Date Time Temp Pulse Resp B/P Pulse Ox O2 Delivery O2 Flow Rate FiO2 11/07/16 20:38 122 11/07/16 20:20 98.2 19 104/71 96 11/07/16 18:00 Nasal Cannula 11/07/16 17:51 2.0 Intake and Output 11/06/16 11/06/16 11/07/16 15:00 23:00 07:00 Intake Total 620 ml 400 ml 570 ml Output Total 530 ml 300 ml 387 ml Balance 90 ml 100 ml 183 ml Exam Free Text/Dictation GENERAL: Elderly, cachectic, no acute distress. HEENT: Head is atraumatic, normocephalic. Pupils equal, round, reactive to light and accommodation. Oral mucosa is pink and moist. NECK: Supple, no cervical lymphadenopathy LUNGS: Normal respiratory effort CARDIAC: S1 and S2. Tachy, Irregular ABDOMEN: Flat, soft and nondistended. Nontender. No rebound or guarding. SKIN: Multiple decubitus wounds/ulcers buttock sacrum and right lower extremity EXTREMITIES: No edema. Pulses equal bilaterally, 2+. NEUROLOGICAL: Responsive VASCULAR: Refill is less than 2 seconds Results Result Diagram: 11/07/16 0430 11/07/16 0430 ZAK POSEY MD November 07, 2016 23:22
[2016-11-08] VITALS (13 sets, daily range): BP systolic 91–127; BP diastolic 53–89; PULSE 108–161; RESP 16–18
[2016-11-08] MEDS: HYDROmorphONE 1 MG/ML SYG IV PRN ×6 (01:27→22:06)
[2016-11-08] MEDS: ACETAMINOPHEN 325 MG TAB PO PRN (04:37)
[2016-11-08] MEDS: LANSOPRAZOLE 30 MG CAP GTB SCH (05:37)
[2016-11-08] MEDS: TRIMETHOPRIM/SULFAMETHOX (DS) TAB PO SCH ×2 (09:47→21:00)
[2016-11-08] MEDS: L ACIDOPHIL/B LACTIS/B LONGUM CAPSULE PO SCH ×3 (09:48→20:23)
[2016-11-08] MEDS: LEVOTHYROXINE 125 MCG TAB PO SCH (09:48)
[2016-11-08] MEDS: ASCORBIC ACID 500 MG TAB PO SCH ×2 (09:48→20:23)
[2016-11-08] MEDS: DULOXETINE 20 MG CAP DR PO SCH (09:48)
[2016-11-08] MEDS: POTASSIUM CHLORIDE 20 MEQ POWDER FOR ORAL SOLN GTB SCH (09:48)
[2016-11-08] MEDS: SODIUM CHLORIDE 1 GM TAB PO SCH ×2 (09:48→22:06)
[2016-11-08] MEDS: DIAZEPAM 5 MG TAB PO SCH (09:48)
[2016-11-08] MEDS: COLLAGENASE 30 GM TUBE TOP SCH (09:49)
[2016-11-08] MEDS: CROMOLYN 4% 26ML NAS INH NASAL SCH ×4 (09:49→20:21)
[2016-11-08 11:05] LABS: ADD SCAN DIFF NO
[2016-11-08 11:18] LABS: ABNORMAL IP MESSAGE 1; BASOPHIL # 0.1 10^3/ul (0.0-0.1); BASOPHILS % 0.5 % (0.0-2.0); EOSINOPHILS # 0.4 10^3/ul (0.0-0.5); EOSINOPHILS % 2.4 % (0.0-7.0); HEMATOCRIT 32.8 % (37.0-47.0); HEMOGLOBIN 9.7 g/dl (12.0-16.0); LYMPHOCYTES # 2.2 10^3/ul (0.8-2.9); LYMPHOCYTES % 12.7 % (15.0-51.0); MEAN CORPUSCULAR HEMOGLOBIN 26.1 pg (29.0-33.0); MEAN CORPUSCULAR HGB CONC 29.6 g/dl (32.0-37.0); MEAN CORPUSCULAR VOLUME 88.4 fl (82.0-101.0); MEAN PLATELET VOLUME 9.3 fl (7.4-10.4); MONOCYTE # 1.7 10^3/ul (0.3-0.9); MONOCYTES % 10.2 % (0.0-11.0); NEUTROPHIL # 12.5 10^3/ul (1.6-7.5); NEUTROPHILS % 73.6 % (39.0-77.0); PLATELET COUNT 376 10^3/UL (140-415); RED BLOOD COUNT 3.71 10^6/ul (4.20-5.40); RED CELL DISTRIBUTION WIDTH 17.3 % (11.5-14.5)
[2016-11-08 11:42] LABS: POTASSIUM 4.5 mmol/L (3.5-5.1)
[2016-11-08 11:45] LABS: CREATININE 0.53 mg/dl (0.44-1.00)
[2016-11-08 11:46] LABS: CALCIUM 9.3 mg/dl (8.4-10.2)
--- NOTE | 2016-11-08 12:06 | CONS ---
Date/Time of Note Date/Time of Note DATE: 11/08/16 TIME: 12:05 Assessment/Plan Assessment/Plan Additional Assessment/Plan SIRS Intermittent hypotension Diastolic congestive heart failure, compensated Pulmonary hypertension Preserved ejection fraction Tricuspid valve regurgitation Lung cancer -Blood pressure trend improving but still with episodes of hypotension and remains asymptomatic. Would continue to hold any antihypertensive medications. Fluids and electrolyte management as per our nephrology colleagues. Consultation Date/Type/Reason Admit Date/Time Sep 26, 2016 at 20:07 Type of Consultation: cv Referring Provider: DRE LOBATO MD 24 HR Interval Summary Free Text/Dictation Denies shortness of breath, chest pain, palpitations or dizziness Exam/Review of Systems Vital Signs Vitals Vital Signs Date Time Temp Pulse Resp B/P Pulse Ox O2 Delivery O2 Flow Rate FiO2 11/08/16 11:50 98.9 112 16 121/86 98 11/08/16 08:30 Nasal Cannula 2.0 Intake and Output 11/07/16 11/07/16 11/08/16 15:00 23:00 07:00 Intake Total 530 ml 230 ml 940 ml Output Total 490 ml 210 ml 1400 ml Balance 40 ml 20 ml -460 ml Exam No apparent distress Constitutional: alert, frail, oriented Head: normocephalic Respiratory: other (Coarse breath sounds bilaterally, no wheezing) Cardiovascular: other (S1-S2 heard), regular rate and rhythm Gastrointestinal: bowel sounds, non-tender, soft Extremities: other (No edema) Results Result Diagram: 11/08/16 1038 11/08/16 1038 Results 24 hrs Laboratory Tests Test 11/08/16 10:38 White Blood Count 17.0 H Red Blood Count 3.71 L Hemoglobin 9.7 L Hematocrit 32.8 L Mean Corpuscular Volume 88.4 Mean Corpuscular Hemoglobin 26.1 L Mean Corpuscular Hemoglobin Concent 29.6 L Red Cell Distribution Width 17.3 H Platelet Count 376 Mean Platelet Volume 9.3 Neutrophils % 73.6 Lymphocytes % 12.7 L Monocytes % 10.2 Eosinophils % 2.4 Basophils % 0.5 Nucleated Red Blood Cells % 0.0 Neutrophils # 12.5 H Lymphocytes # 2.2 Monocytes # 1.7 H Eosinophils # 0.4 Basophils # 0.1 Nucleated Red Blood Cells # 0.0 Sodium Level 141 Potassium Level 4.5 Chloride Level 102 Carbon Dioxide Level 29 Anion Gap 15 Blood Urea Nitrogen 27 H Creatinine 0.53 Glucose Level 109 Calcium Level 9.3 Medications Medications Current Medications Ondansetron HCl (Zofran Inj) 4 mg Q6 PRN IV NAUSEA AND/OR VOMITING; Start 09/26 at 22:30 Acetaminophen (Tylenol Tab) 650 mg Q6H PRN PO PAIN AND OR ELEVATED TEMP Last administered on 11/08/16 04:37; Admin Dose 650 MG; Start 09/26/16 at 23:00 Alprazolam (Xanax) 0.5 mg Q12 PRN PO ANXIETY Last administered on 10/29/16 14: 31; Admin Dose 0.5 MG; Start 09/26/16 at 23:00 Ascorbic Acid (Vitamin C) 500 mg BID PO Last administered on 11/08/16 09:48; Admin Dose 500 MG; Start 09/27/16 at 09:00 Atorvastatin Calcium (Lipitor) 20 mg QHS PO Last administered on 11/07/16 21: 20; Admin Dose 20 MG; Start 09/27/16 at 21:00 Diazepam (Valium) 10 mg DAILY PO Last administered on 11/08/16 09:48; Admin Dose 10 MG; Start 09/27/16 at 09:00 Docusate Sodium (Colace) 100 mg Q12H PRN PO CONSTIPATION; Start 09/26/16 at 23: 00 Duloxetine HCl (Cymbalta) 20 mg DAILY PO Last administered on 11/08/16 09:48; Admin Dose 20 MG; Start 09/27/16 at 09:00 Zolpidem Tartrate (Ambien) 5 mg QHS PRN PO INSOMNIA Last administered on 21:20; Admin Dose 5 MG; Start 09/26/16 at 23:00 Collagenase (Santyl) 1 applic DAILY TOP Last administered on 11/08/16 09:49; Admin Dose 1 APPLIC; Start 09/27/16 at 09:00 Collagenase (Santyl) 1 applic PRN PRN TOP SOILED OR DISLODGED DRESSING; Start 09/27/16 at 05:00 Lansoprazole (Prevacid) 30 mg DAILY@06 GTB Last administered on 11/08/16 05:37 ; Admin Dose 30 MG; Start 09/28/16 at 06:00 Cromolyn Sodium (Nasalcrom) 1 spray QID NASAL Last administered on 11/08/16 09 :49; Admin Dose 1 SPRAY; Start 09/29/16 at 11:02 Phenol (Cepastat Lozenge) 1 lozenge Q2H PRN MT SORE THROAT Last administered on 11/02/16 01:02; Admin Dose 1 LOZENGE; Start 10/01/16 at 19:00 IV Flush (NS 10 ml) 10 ml PRN PRN IV IV PROTOCOL Last administered on 08:08; Admin Dose 10 ML; Start 10/02/16 at 19:00 Lactobacillus Acidophilus (Florajen3 Capsule) 1 each TID PO Last administered on 11/08/16 09:48; Admin Dose 1 EACH; Start 10/03/16 at 21:00 Hydromorphone HCl (Dilaudid) 0.5 mg Q4H PRN IV PAIN Last administered on 09:51; Admin Dose 0.5 MG; Start 10/06/16 at 18:30 Promethazine HCl/ Codeine (Phenergan/ Codeine) 10 ml BID PRN PO COUGH Last administered on 11/07/16 17:27; Admin Dose 10 ML; Start 10/07/16 at 20:30 Potassium Chloride (Potassium Chloride Pwd/Soln) 20 meq DAILY GTB Last administered on 11/08/16 09:48; Admin Dose 20 MEQ; Start 10/30/16 at 12:00 Sodium Chloride (Nacl) 1 gm BID PO Last administered on 11/08/16 09:48; Admin Dose 1 GM; Start 11/01/16 at 21:00 Trimethoprim/ Sulfamethoxazole (Bactrim (Ds)) 1 tab BID PO Last administered on 11/08/16 09:47; Admin Dose 1 TAB; Start 11/02/16 at 12:00 Artemio Tipton DO November 08, 2016 12:06
--- NOTE | 2016-11-08 13:20 | CONS ---
Date/Time of Note Date/Time of Note DATE: 11/08/16 TIME: 13:15 Assessment/Plan Assessment/Plan Chief Complaint/Hosp Course SUBJECTIVE: No acute changes. The patient is awake, lying comfortably in bed. No fevers. MICROBIOLOGY: Blood cultures negative. INDWELLINGS: George, PICC line placed on 10/02/2016. PEG. ANTIMICROBIALS: The patient remains on oral Bactrim. PHYSICAL EXAMINATION: GENERAL: This is a cachectic elderly woman who is awake, in no distress. HEENT: Head atraumatic, normocephalic. Sclerae anicteric. Buccal mucosa dry. NECK: Supple, trachea midline. CHEST: Rise symmetrical. Breath sounds diminished to bases. HEART: S1, S2. ABDOMEN: Soft, bowel tones present. EXTREMITIES: Without cyanosis. ASSESSMENT: 1. Recurrent urinary tract infection. 2. Hypotension, possibly secondary to dehydration, status post fluid bolus with improvement. 3. Unstageable sacral wound, status post debridement with wound VAC application and wound colonized with multiple bacteria; no evidence of active infection as per discussion with surgery. 4. Cachexia. 5. Lung cancer. 6. Failure to thrive. PLAN: The patient remains stable. Continue present care. Continue on current antibiotics. DW staff Problems: Consultation Date/Type/Reason Admit Date/Time Sep 26, 2016 at 20:07 Type of Consultation: ID Referring Provider: DRE LOBATO MD Exam/Review of Systems Vital Signs Vitals Vital Signs Date Time Temp Pulse Resp B/P Pulse Ox O2 Delivery O2 Flow Rate FiO2 11/08/16 12:00 114 11/08/16 11:50 98.9 16 121/86 98 11/08/16 08:30 Nasal Cannula 2.0 Intake and Output 11/07/16 11/07/16 11/08/16 15:00 23:00 07:00 Intake Total 530 ml 230 ml 940 ml Output Total 490 ml 210 ml 1400 ml Balance 40 ml 20 ml -460 ml Results Result Diagram: 11/08/16 1038 11/08/16 1038 Results 24 hrs Laboratory Tests Test 11/08/16 10:38 White Blood Count 17.0 H Red Blood Count 3.71 L Hemoglobin 9.7 L Hematocrit 32.8 L Mean Corpuscular Volume 88.4 Mean Corpuscular Hemoglobin 26.1 L Mean Corpuscular Hemoglobin Concent 29.6 L Red Cell Distribution Width 17.3 H Platelet Count 376 Mean Platelet Volume 9.3 Neutrophils % 73.6 Lymphocytes % 12.7 L Monocytes % 10.2 Eosinophils % 2.4 Basophils % 0.5 Nucleated Red Blood Cells % 0.0 Neutrophils # 12.5 H Lymphocytes # 2.2 Monocytes # 1.7 H Eosinophils # 0.4 Basophils # 0.1 Nucleated Red Blood Cells # 0.0 Sodium Level 141 Potassium Level 4.5 Chloride Level 102 Carbon Dioxide Level 29 Anion Gap 15 Blood Urea Nitrogen 27 H Creatinine 0.53 Glucose Level 109 Calcium Level 9.3 Medications Medications Current Medications Ondansetron HCl (Zofran Inj) 4 mg Q6 PRN IV NAUSEA AND/OR VOMITING; Start 09/26 at 22:30 Acetaminophen (Tylenol Tab) 650 mg Q6H PRN PO PAIN AND OR ELEVATED TEMP Last administered on 11/08/16 04:37; Admin Dose 650 MG; Start 09/26/16 at 23:00 Alprazolam (Xanax) 0.5 mg Q12 PRN PO ANXIETY Last administered on 10/29/16 14: 31; Admin Dose 0.5 MG; Start 09/26/16 at 23:00 Ascorbic Acid (Vitamin C) 500 mg BID PO Last administered on 11/08/16 09:48; Admin Dose 500 MG; Start 09/27/16 at 09:00 Atorvastatin Calcium (Lipitor) 20 mg QHS PO Last administered on 11/07/16 21: 20; Admin Dose 20 MG; Start 09/27/16 at 21:00 Diazepam (Valium) 10 mg DAILY PO Last administered on 11/08/16 09:48; Admin Dose 10 MG; Start 09/27/16 at 09:00 Docusate Sodium (Colace) 100 mg Q12H PRN PO CONSTIPATION; Start 09/26/16 at 23: 00 Duloxetine HCl (Cymbalta) 20 mg DAILY PO Last administered on 11/08/16 09:48; Admin Dose 20 MG; Start 09/27/16 at 09:00 Zolpidem Tartrate (Ambien) 5 mg QHS PRN PO INSOMNIA Last administered on 21:20; Admin Dose 5 MG; Start 09/26/16 at 23:00 Collagenase (Santyl) 1 applic DAILY TOP Last administered on 11/08/16 09:49; Admin Dose 1 APPLIC; Start 09/27/16 at 09:00 Collagenase (Santyl) 1 applic PRN PRN TOP SOILED OR DISLODGED DRESSING; Start 09/27/16 at 05:00 Lansoprazole (Prevacid) 30 mg DAILY@06 GTB Last administered on 11/08/16 05:37 ; Admin Dose 30 MG; Start 09/28/16 at 06:00 Cromolyn Sodium (Nasalcrom) 1 spray QID NASAL Last administered on 11/08/16 12 :10; Admin Dose 1 SPRAY; Start 09/29/16 at 11:02 Phenol (Cepastat Lozenge) 1 lozenge Q2H PRN MT SORE THROAT Last administered on 11/02/16 01:02; Admin Dose 1 LOZENGE; Start 10/01/16 at 19:00 IV Flush (NS 10 ml) 10 ml PRN PRN IV IV PROTOCOL Last administered on 08:08; Admin Dose 10 ML; Start 10/02/16 at 19:00 Lactobacillus Acidophilus (Florajen3 Capsule) 1 each TID PO Last administered on 11/08/16 12:10; Admin Dose 1 EACH; Start 10/03/16 at 21:00 Hydromorphone HCl (Dilaudid) 0.5 mg Q4H PRN IV PAIN Last administered on 09:51; Admin Dose 0.5 MG; Start 10/06/16 at 18:30 Promethazine HCl/ Codeine (Phenergan/ Codeine) 10 ml BID PRN PO COUGH Last administered on 11/07/16 17:27; Admin Dose 10 ML; Start 10/07/16 at 20:30 Potassium Chloride (Potassium Chloride Pwd/Soln) 20 meq DAILY GTB Last administered on 11/08/16 09:48; Admin Dose 20 MEQ; Start 10/30/16 at 12:00 Sodium Chloride (Nacl) 1 gm BID PO Last administered on 11/08/16 09:48; Admin Dose 1 GM; Start 11/01/16 at 21:00 Trimethoprim/ Sulfamethoxazole (Bactrim (Ds)) 1 tab BID PO Last administered on 11/08/16 09:47; Admin Dose 1 TAB; Start 11/02/16 at 12:00 RUBIN MAYEN NP November 08, 2016 13:20
--- NOTE | 2016-11-08 17:50 | CONS ---
Date/Time of Note Date/Time of Note DATE: 11/08/16 TIME: 17:48 Assessment/Plan Assessment/Plan Additional Assessment/Plan 1. Hyponatremia, multifactorial - pt likey has Component of SAIDH causing hypoantreia, due to acute on chronic pain 2. Status post acute kidney injury on chronic kidney disease due to systemic inflammatory response syndrome. now improved 3. Sepsis, 4. History of recurrent polymicrobial urinary tract infections. 5. History of dementia. 6. History of previous cerebrovascular accident. 7. History of chronic obstructive pulmonary disease, recently had acute respiratory failure secondary to chronic obstructive pulmonary disease exacerbation. 8. History of urinary retention with a chronic George catheter in place. 9. Chronic debility with cachexia. 10. Multiple decubitus ulcers with a history of debridement. 11. History of degenerative joint disease of spine. 12. History of hypertension and hypertensive heart disease with mild to moderate concentric left ventricular hypertrophy and echocardiogram with diastolic dysfunction stage I.EF normal PLAN: SAIDH causing hypoantreia, s/p one dose of tolvaptan 15 mg on 10/24/16- Na normal today on Na Chloride tablet 1 gram PO BID monitor electrolytes will follow up Consultation Date/Type/Reason Admit Date/Time Sep 26, 2016 at 20:07 Type of Consultation: NEPHROLOGY Referring Provider: DRE LOBATO MD 24 HR Interval Summary Free Text/Dictation BP more stable, transferred to telemetry floor Exam/Review of Systems Vital Signs Vitals Vital Signs Date Time Temp Pulse Resp B/P Pulse Ox O2 Delivery O2 Flow Rate FiO2 11/08/16 16:00 122 11/08/16 15:57 99.3 16 120/80 94 11/08/16 08:30 Nasal Cannula 2.0 Intake and Output 11/07/16 11/07/16 11/08/16 15:00 23:00 07:00 Intake Total 530 ml 230 ml 940 ml Output Total 490 ml 210 ml 1400 ml Balance 40 ml 20 ml -460 ml Results Result Diagram: 11/08/16 1038 11/08/16 1038 Results 24 hrs Laboratory Tests Test 11/08/16 10:38 White Blood Count 17.0 H Red Blood Count 3.71 L Hemoglobin 9.7 L Hematocrit 32.8 L Mean Corpuscular Volume 88.4 Mean Corpuscular Hemoglobin 26.1 L Mean Corpuscular Hemoglobin Concent 29.6 L Red Cell Distribution Width 17.3 H Platelet Count 376 Mean Platelet Volume 9.3 Neutrophils % 73.6 Lymphocytes % 12.7 L Monocytes % 10.2 Eosinophils % 2.4 Basophils % 0.5 Nucleated Red Blood Cells % 0.0 Neutrophils # 12.5 H Lymphocytes # 2.2 Monocytes # 1.7 H Eosinophils # 0.4 Basophils # 0.1 Nucleated Red Blood Cells # 0.0 Sodium Level 141 Potassium Level 4.5 Chloride Level 102 Carbon Dioxide Level 29 Anion Gap 15 Blood Urea Nitrogen 27 H Creatinine 0.53 Glucose Level 109 Calcium Level 9.3 Medications Medications Current Medications Ondansetron HCl (Zofran Inj) 4 mg Q6 PRN IV NAUSEA AND/OR VOMITING; Start 09/26 at 22:30 Acetaminophen (Tylenol Tab) 650 mg Q6H PRN PO PAIN AND OR ELEVATED TEMP Last administered on 11/08/16 04:37; Admin Dose 650 MG; Start 09/26/16 at 23:00 Alprazolam (Xanax) 0.5 mg Q12 PRN PO ANXIETY Last administered on 10/29/16 14: 31; Admin Dose 0.5 MG; Start 09/26/16 at 23:00 Ascorbic Acid (Vitamin C) 500 mg BID PO Last administered on 11/08/16 09:48; Admin Dose 500 MG; Start 09/27/16 at 09:00 Atorvastatin Calcium (Lipitor) 20 mg QHS PO Last administered on 11/07/16 21: 20; Admin Dose 20 MG; Start 09/27/16 at 21:00 Diazepam (Valium) 10 mg DAILY PO Last administered on 11/08/16 09:48; Admin Dose 10 MG; Start 09/27/16 at 09:00 Docusate Sodium (Colace) 100 mg Q12H PRN PO CONSTIPATION; Start 09/26/16 at 23: 00 Duloxetine HCl (Cymbalta) 20 mg DAILY PO Last administered on 11/08/16 09:48; Admin Dose 20 MG; Start 09/27/16 at 09:00 Zolpidem Tartrate (Ambien) 5 mg QHS PRN PO INSOMNIA Last administered on 21:20; Admin Dose 5 MG; Start 09/26/16 at 23:00 Collagenase (Santyl) 1 applic DAILY TOP Last administered on 11/08/16 09:49; Admin Dose 1 APPLIC; Start 09/27/16 at 09:00 Collagenase (Santyl) 1 applic PRN PRN TOP SOILED OR DISLODGED DRESSING; Start 09/27/16 at 05:00 Lansoprazole (Prevacid) 30 mg DAILY@06 GTB Last administered on 11/08/16 05:37 ; Admin Dose 30 MG; Start 09/28/16 at 06:00 Cromolyn Sodium (Nasalcrom) 1 spray QID NASAL Last administered on 11/08/16 12 :10; Admin Dose 1 SPRAY; Start 09/29/16 at 11:02 Phenol (Cepastat Lozenge) 1 lozenge Q2H PRN MT SORE THROAT Last administered on 11/02/16 01:02; Admin Dose 1 LOZENGE; Start 10/01/16 at 19:00 IV Flush (NS 10 ml) 10 ml PRN PRN IV IV PROTOCOL Last administered on 08:08; Admin Dose 10 ML; Start 10/02/16 at 19:00 Lactobacillus Acidophilus (Florajen3 Capsule) 1 each TID PO Last administered on 11/08/16 12:10; Admin Dose 1 EACH; Start 10/03/16 at 21:00 Hydromorphone HCl (Dilaudid) 0.5 mg Q4H PRN IV PAIN Last administered on 13:59; Admin Dose 0.5 MG; Start 10/06/16 at 18:30 Promethazine HCl/ Codeine (Phenergan/ Codeine) 10 ml BID PRN PO COUGH Last administered on 11/07/16 17:27; Admin Dose 10 ML; Start 10/07/16 at 20:30 Potassium Chloride (Potassium Chloride Pwd/Soln) 20 meq DAILY GTB Last administered on 11/08/16 09:48; Admin Dose 20 MEQ; Start 10/30/16 at 12:00 Sodium Chloride (Nacl) 1 gm BID PO Last administered on 11/08/16 09:48; Admin Dose 1 GM; Start 11/01/16 at 21:00 Trimethoprim/ Sulfamethoxazole (Bactrim (Ds)) 1 tab BID PO Last administered on 11/08/16 09:47; Admin Dose 1 TAB; Start 11/02/16 at 12:00 DIONNE SAUCEDA MD November 08, 2016 17:49
--- NOTE | 2016-11-08 18:40 | PN ---
Date/Time of Note Date/Time of Note DATE: 11/08/16 TIME: 18:37 Assessment/Plan VTE Prophylaxis VTE Prophylaxis Intervention: SCD's Lines/Catheters [facility] P[facility] Line Central line still needed: Yes Urinary Cath still in place: Yes Reason Cath still needed: urinary retention Assessment/Plan Chief Complaint/Hosp Course Patient with increased leukocytosis, low-grade fever and tachycardia, stable blood pressure. Patient refused wound VAC change. ASSESSMENT AND PLAN: - Persistent leukocytosis. Patient complete treatment with antibiotics, currently on Bactrim. - Recurrent urinary tract infection with George catheter. Continue to monitor. - Chronic obstructive pulmonary disease. Continue breathing treatment. - Left lung squamous carcinoma. The patient is not a candidate for chemotherapy per previous assessment. - Multiple decubitus ulcers, status post wound debridement by Dr. Sinclair of sacrococcygeal wound. The patient is currently on wound VAC. Continue to follow up surgical recommendations. - Dysphagia with G-tube placement. Continue feeding through G-tube, strict aspiration precaution. - Hypothyroidism. Continue Synthroid. - Anemia of chronic disease. Continue to monitor hemoglobin and hematocrit. - Hyponatremia, resolved. - Chronic pain. Continue Prevacid for peptic ulcer disease prophylaxis and sequential compression device for deep venous thrombosis prophylaxis. Further recommendations based on clinical course. Plan of care discussed with Dr. Dozier. Problems: Exam/Review of Systems Vital Signs Vitals Vital Signs Date Time Temp Pulse Resp B/P Pulse Ox O2 Delivery O2 Flow Rate FiO2 11/08/16 16:00 122 11/08/16 15:57 99.3 16 120/80 94 11/08/16 08:30 Nasal Cannula 2.0 Intake and Output 11/07/16 11/07/16 11/08/16 15:00 23:00 07:00 Intake Total 530 ml 230 ml 940 ml Output Total 490 ml 210 ml 1400 ml Balance 40 ml 20 ml -460 ml Exam GENERAL: Cachectic female currently is awake, alert. LUNGS: Clear bilaterally, slightly diminished at the bases. HEART: The patient is tachycardic. Normal S1, S2. No murmurs. ABDOMEN: Flat, soft, nondistended. G-tube present. EXTREMITIES: Normal pulses, no edema. SKIN: Multiple decubitus ulcers including bilateral buttocks and bilateral lower extremities and wound VAC to sacral decubitus. NEUROLOGIC: The patient is awake, alert to name and situation. Results Result Diagram: 11/08/16 1038 11/08/16 1038 Results 24 hrs Laboratory Tests Test 11/08/16 10:38 White Blood Count 17.0 H Red Blood Count 3.71 L Hemoglobin 9.7 L Hematocrit 32.8 L Mean Corpuscular Volume 88.4 Mean Corpuscular Hemoglobin 26.1 L Mean Corpuscular Hemoglobin Concent 29.6 L Red Cell Distribution Width 17.3 H Platelet Count 376 Mean Platelet Volume 9.3 Neutrophils % 73.6 Lymphocytes % 12.7 L Monocytes % 10.2 Eosinophils % 2.4 Basophils % 0.5 Nucleated Red Blood Cells % 0.0 Neutrophils # 12.5 H Lymphocytes # 2.2 Monocytes # 1.7 H Eosinophils # 0.4 Basophils # 0.1 Nucleated Red Blood Cells # 0.0 Sodium Level 141 Potassium Level 4.5 Chloride Level 102 Carbon Dioxide Level 29 Anion Gap 15 Blood Urea Nitrogen 27 H Creatinine 0.53 Glucose Level 109 Calcium Level 9.3 Medications Medications Current Medications Ondansetron HCl (Zofran Inj) 4 mg Q6 PRN IV NAUSEA AND/OR VOMITING; Start 09/26 at 22:30 Acetaminophen (Tylenol Tab) 650 mg Q6H PRN PO PAIN AND OR ELEVATED TEMP Last administered on 11/08/16 04:37; Admin Dose 650 MG; Start 09/26/16 at 23:00 Alprazolam (Xanax) 0.5 mg Q12 PRN PO ANXIETY Last administered on 10/29/16 14: 31; Admin Dose 0.5 MG; Start 09/26/16 at 23:00 Ascorbic Acid (Vitamin C) 500 mg BID PO Last administered on 11/08/16 09:48; Admin Dose 500 MG; Start 09/27/16 at 09:00 Atorvastatin Calcium (Lipitor) 20 mg QHS PO Last administered on 11/07/16 21: 20; Admin Dose 20 MG; Start 09/27/16 at 21:00 Diazepam (Valium) 10 mg DAILY PO Last administered on 11/08/16 09:48; Admin Dose 10 MG; Start 09/27/16 at 09:00 Docusate Sodium (Colace) 100 mg Q12H PRN PO CONSTIPATION; Start 09/26/16 at 23: 00 Duloxetine HCl (Cymbalta) 20 mg DAILY PO Last administered on 11/08/16 09:48; Admin Dose 20 MG; Start 09/27/16 at 09:00 Zolpidem Tartrate (Ambien) 5 mg QHS PRN PO INSOMNIA Last administered on 21:20; Admin Dose 5 MG; Start 09/26/16 at 23:00 Collagenase (Santyl) 1 applic DAILY TOP Last administered on 11/08/16 09:49; Admin Dose 1 APPLIC; Start 09/27/16 at 09:00 Collagenase (Santyl) 1 applic PRN PRN TOP SOILED OR DISLODGED DRESSING; Start 09/27/16 at 05:00 Lansoprazole (Prevacid) 30 mg DAILY@06 GTB Last administered on 11/08/16 05:37 ; Admin Dose 30 MG; Start 09/28/16 at 06:00 Cromolyn Sodium (Nasalcrom) 1 spray QID NASAL Last administered on 11/08/16 12 :10; Admin Dose 1 SPRAY; Start 09/29/16 at 11:02 Phenol (Cepastat Lozenge) 1 lozenge Q2H PRN MT SORE THROAT Last administered on 11/02/16 01:02; Admin Dose 1 LOZENGE; Start 10/01/16 at 19:00 IV Flush (NS 10 ml) 10 ml PRN PRN IV IV PROTOCOL Last administered on 08:08; Admin Dose 10 ML; Start 10/02/16 at 19:00 Lactobacillus Acidophilus (Florajen3 Capsule) 1 each TID PO Last administered on 11/08/16 12:10; Admin Dose 1 EACH; Start 10/03/16 at 21:00 Hydromorphone HCl (Dilaudid) 0.5 mg Q4H PRN IV PAIN Last administered on 18:11; Admin Dose 0.5 MG; Start 10/06/16 at 18:30 Promethazine HCl/ Codeine (Phenergan/ Codeine) 10 ml BID PRN PO COUGH Last administered on 11/07/16 17:27; Admin Dose 10 ML; Start 10/07/16 at 20:30 Potassium Chloride (Potassium Chloride Pwd/Soln) 20 meq DAILY GTB Last administered on 11/08/16 09:48; Admin Dose 20 MEQ; Start 10/30/16 at 12:00 Sodium Chloride (Nacl) 1 gm BID PO Last administered on 11/08/16 09:48; Admin Dose 1 GM; Start 11/01/16 at 21:00 Trimethoprim/ Sulfamethoxazole (Bactrim (Ds)) 1 tab BID PO Last administered on 11/08/16 09:47; Admin Dose 1 TAB; Start 11/02/16 at 12:00 REBECCA ISLAS November 08, 2016 18:40
--- NOTE | 2016-11-08 19:23 | PN ---
Date/Time of Note Date/Time of Note DATE: 11/08/16 TIME: 19:21 Assessment/Plan Lines/Catheters IV Catheter Type (from Nrs): PICC Line George in Place (from Nrs): Yes Assessment/Plan Chief Complaint/Hosp Course 1. Multiple decubitus ulcers with debris. Sacrococcygeal ulcer s/p exc boris . -Offload -Optimize nutrition -Vitamin C -Local care 2. UTI s/p abx 3. 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 Acute on chronic diastolic heart failure -Judicious fluid management -Cardiac optimization 5. Hypertension -Diet and medication control 6. Chronic urinary retention with George 7. Depression. -Medical management 8. Hypothyroidism by history. -Synthroid 9. Anemia of chronic disease in addition to iron deficiency anemia. -Continue iron supplements. -Transfusion when necessary 10. Chronic pain syndrome. Continue pain management. Thank you Problems: Subjective 24 Hr Interval Summary Leukocytosis. Tachyarrhythmia. No fevers, chills, nausea, vomiting, or abdominal pain. No abnormal vaginal discharge. No bloating. No cough, sz, bloating. No robles/dizzy/visual or neuro changes. Exam/Review of Systems Vital Signs Vitals Vital Signs Date Time Temp Pulse Resp B/P Pulse Ox O2 Delivery O2 Flow Rate FiO2 11/08/16 16:00 122 11/08/16 15:57 99.3 16 120/80 94 11/08/16 08:30 Nasal Cannula 2.0 Intake and Output 11/07/16 11/07/16 11/08/16 15:00 23:00 07:00 Intake Total 530 ml 230 ml 940 ml Output Total 490 ml 210 ml 1400 ml Balance 40 ml 20 ml -460 ml Exam Free Text/Dictation GENERAL: Elderly, cachectic, no acute distress. HEENT: Head is atraumatic, normocephalic. Pupils equal, round, reactive to light and accommodation. Oral mucosa is pink and moist. NECK: Supple, no cervical lymphadenopathy LUNGS: Normal respiratory effort CARDIAC: S1 and S2. Tachy, Irregular ABDOMEN: Flat, soft and nondistended. Nontender. No rebound or guarding. SKIN: Multiple decubitus wounds/ulcers buttock sacrum and right lower extremity EXTREMITIES: No edema. Pulses equal bilaterally, 2+. NEUROLOGICAL: Responsive VASCULAR: Refill is less than 2 seconds Results Result Diagram: 11/08/16 1038 11/08/16 1038 ZAK POSEY MD November 08, 2016 19:23
[2016-11-08] MEDS: ALPRAZOLAM 0.25 MG TAB PO PRN (20:22)
[2016-11-08] MEDS: ZOLPIDEM 5 MG TAB PO PRN (20:23)
[2016-11-08] MEDS: ATORVASTATIN 20 MG TAB PO SCH (20:23)
[2016-11-09] VITALS (12 sets, daily range): BP systolic 104–123; BP diastolic 53–89; PULSE 113–160; RESP 16–24
[2016-11-09] MEDS: HYDROmorphONE 1 MG/ML SYG IV PRN ×4 (05:02→17:51)
[2016-11-09] MEDS: LANSOPRAZOLE 30 MG CAP GTB SCH (05:02)
[2016-11-09] MEDS: LEVOTHYROXINE 125 MCG TAB PO SCH (05:03)
[2016-11-09 07:16] LABS: ADD SCAN DIFF NO
[2016-11-09 07:25] LABS: ABNORMAL IP MESSAGE 1; BASOPHIL # 0.1 10^3/ul (0.0-0.1); BASOPHILS % 0.6 % (0.0-2.0); EOSINOPHILS # 0.4 10^3/ul (0.0-0.5); HEMATOCRIT 32.4 % (37.0-47.0); HEMOGLOBIN 9.6 g/dl (12.0-16.0); LYMPHOCYTES # 2.4 10^3/ul (0.8-2.9); LYMPHOCYTES % 12.7 % (15.0-51.0); MEAN CORPUSCULAR HGB CONC 29.6 g/dl (32.0-37.0); MEAN CORPUSCULAR VOLUME 87.8 fl (82.0-101.0); MEAN PLATELET VOLUME 9.6 fl (7.4-10.4); MONOCYTE # 1.8 10^3/ul (0.3-0.9); MONOCYTES % 9.7 % (0.0-11.0); NEUTROPHIL # 13.9 10^3/ul (1.6-7.5); NEUTROPHILS % 74.4 % (39.0-77.0); PLATELET COUNT 388 10^3/UL (140-415); RED BLOOD COUNT 3.69 10^6/ul (4.20-5.40); RED CELL DISTRIBUTION WIDTH 17.7 % (11.5-14.5); WHITE BLOOD COUNT 18.7 10^3/ul (4.8-10.8)
[2016-11-09 07:42] LABS: CALCIUM 9.4 mg/dl (8.4-10.2); CREATININE 0.55 mg/dl (0.44-1.00); POTASSIUM 4.1 mmol/L (3.5-5.1)
--- NOTE | 2016-11-09 09:26 | CONS ---
Date/Time of Note Date/Time of Note DATE: 11/09/16 TIME: 09:24 Assessment/Plan Assessment/Plan Additional Assessment/Plan 1. Hyponatremia, multifactorial - pt likey has Component of SAIDH causing hypoantreia, due to acute on chronic pain 2. Status post acute kidney injury on chronic kidney disease due to systemic inflammatory response syndrome. now improved 3. Sepsis, 4. History of recurrent polymicrobial urinary tract infections. 5. History of dementia. 6. History of previous cerebrovascular accident. 7. History of chronic obstructive pulmonary disease, recently had acute respiratory failure secondary to chronic obstructive pulmonary disease exacerbation. 8. History of urinary retention with a chronic George catheter in place. 9. Chronic debility with cachexia. 10. Multiple decubitus ulcers with debris. Sacrococcygeal ulcer s/p exc boris . 11. History of degenerative joint disease of spine. 12. History of hypertension and hypertensive heart disease with mild to moderate concentric left ventricular hypertrophy and echocardiogram with diastolic dysfunction stage I.EF normal PLAN: SAIDH causing hypoantreia, s/p one dose of tolvaptan 15 mg on 10/24/16- Na normal today on Na Chloride tablet 1 gram PO BID , pt is also on bactrim, will continue to monitor her K and Cr monitor electrolytes will follow up Consultation Date/Type/Reason Admit Date/Time Sep 26, 2016 at 20:07 Type of Consultation: NEPHROLOGY Referring Provider: DRE LOBATO MD 24 HR Interval Summary Free Text/Dictation remained stable on telemetry floor, BP stable Exam/Review of Systems Vital Signs Vitals Vital Signs Date Time Temp Pulse Resp B/P Pulse Ox O2 Delivery O2 Flow Rate FiO2 11/09/16 07:40 Nasal Cannula 2.0 11/09/16 07:28 99.3 118 24 115/64 94 Intake and Output 11/08/16 11/08/16 11/09/16 15:00 23:00 07:00 Intake Total 820 ml Output Total 900 ml Balance -80 ml Results Result Diagram: 11/09/16 0630 11/09/16 0630 Results 24 hrs Laboratory Tests Test 11/08/16 10:38 11/09/16 06:30 White Blood Count 17.0 H 18.7 H Red Blood Count 3.71 L 3.69 L Hemoglobin 9.7 L 9.6 L Hematocrit 32.8 L 32.4 L Mean Corpuscular Volume 88.4 87.8 Mean Corpuscular Hemoglobin 26.1 L 26.0 L Mean Corpuscular Hemoglobin Concent 29.6 L 29.6 L Red Cell Distribution Width 17.3 H 17.7 H Platelet Count 376 388 Mean Platelet Volume 9.3 9.6 Neutrophils % 73.6 74.4 Lymphocytes % 12.7 L 12.7 L Monocytes % 10.2 9.7 Eosinophils % 2.4 2.0 Basophils % 0.5 0.6 Nucleated Red Blood Cells % 0.0 0.0 Neutrophils # 12.5 H 13.9 H Lymphocytes # 2.2 2.4 Monocytes # 1.7 H 1.8 H Eosinophils # 0.4 0.4 Basophils # 0.1 0.1 Nucleated Red Blood Cells # 0.0 0.0 Sodium Level 141 139 Potassium Level 4.5 4.1 Chloride Level 102 104 Carbon Dioxide Level 29 29 Anion Gap 15 10 # Blood Urea Nitrogen 27 H 25 H Creatinine 0.53 0.55 Glucose Level 109 133 Calcium Level 9.3 9.4 Medications Medications Current Medications Ondansetron HCl (Zofran Inj) 4 mg Q6 PRN IV NAUSEA AND/OR VOMITING; Start 09/26 at 22:30 Acetaminophen (Tylenol Tab) 650 mg Q6H PRN PO PAIN AND OR ELEVATED TEMP Last administered on 11/08/16 04:37; Admin Dose 650 MG; Start 09/26/16 at 23:00 Ascorbic Acid (Vitamin C) 500 mg BID PO Last administered on 11/08/16 20:23; Admin Dose 500 MG; Start 09/27/16 at 09:00 Atorvastatin Calcium (Lipitor) 20 mg QHS PO Last administered on 11/08/16 20: 23; Admin Dose 20 MG; Start 09/27/16 at 21:00 Diazepam (Valium) 10 mg DAILY PO Last administered on 11/08/16 09:48; Admin Dose 10 MG; Start 09/27/16 at 09:00 Docusate Sodium (Colace) 100 mg Q12H PRN PO CONSTIPATION; Start 09/26/16 at 23: 00 Duloxetine HCl (Cymbalta) 20 mg DAILY PO Last administered on 11/08/16 09:48; Admin Dose 20 MG; Start 09/27/16 at 09:00 Zolpidem Tartrate (Ambien) 5 mg QHS PRN PO INSOMNIA Last administered on 20:23; Admin Dose 5 MG; Start 09/26/16 at 23:00 Collagenase (Santyl) 1 applic DAILY TOP Last administered on 11/08/16 09:49; Admin Dose 1 APPLIC; Start 09/27/16 at 09:00 Collagenase (Santyl) 1 applic PRN PRN TOP SOILED OR DISLODGED DRESSING; Start 09/27/16 at 05:00 Lansoprazole (Prevacid) 30 mg DAILY@06 GTB Last administered on 11/09/16 05:02 ; Admin Dose 30 MG; Start 09/28/16 at 06:00 Cromolyn Sodium (Nasalcrom) 1 spray QID NASAL Last administered on 11/08/16 20 :21; Admin Dose 1 SPRAY; Start 09/29/16 at 11:02 Phenol (Cepastat Lozenge) 1 lozenge Q2H PRN MT SORE THROAT Last administered on 11/02/16 01:02; Admin Dose 1 LOZENGE; Start 10/01/16 at 19:00 IV Flush (NS 10 ml) 10 ml PRN PRN IV IV PROTOCOL Last administered on 08:08; Admin Dose 10 ML; Start 10/02/16 at 19:00 Lactobacillus Acidophilus (Florajen3 Capsule) 1 each TID PO Last administered on 11/08/16 20:23; Admin Dose 1 EACH; Start 10/03/16 at 21:00 Hydromorphone HCl (Dilaudid) 0.5 mg Q4H PRN IV PAIN Last administered on 05:02; Admin Dose 0.5 MG; Start 10/06/16 at 18:30 Promethazine HCl/ Codeine (Phenergan/ Codeine) 10 ml BID PRN PO COUGH Last administered on 11/07/16 17:27; Admin Dose 10 ML; Start 10/07/16 at 20:30 Potassium Chloride (Potassium Chloride Pwd/Soln) 20 meq DAILY GTB Last administered on 11/08/16 09:48; Admin Dose 20 MEQ; Start 10/30/16 at 12:00 Sodium Chloride (Nacl) 1 gm BID PO Last administered on 11/08/16 22:06; Admin Dose 1 GM; Start 11/01/16 at 21:00 Trimethoprim/ Sulfamethoxazole (Bactrim (Ds)) 1 tab BID PO Last administered on 11/08/16 21:00; Admin Dose 1 TAB; Start 11/02/16 at 12:00 Alprazolam (Xanax) 0.5 mg Q12H PRN PO ANXIETY Last administered on 11/08/16 20 :22; Admin Dose 0.5 MG; Start 11/08/16 at 20:30 DIONNE SAUCEDA MD November 09, 2016 09:26
[2016-11-09] MEDS: CROMOLYN 4% 26ML NAS INH NASAL SCH ×4 (09:30→20:55)
[2016-11-09] MEDS: COLLAGENASE 30 GM TUBE TOP SCH (09:30)
[2016-11-09] MEDS: DIAZEPAM 5 MG TAB PO SCH (09:31)
[2016-11-09] MEDS: DULOXETINE 20 MG CAP DR PO SCH (09:31)
[2016-11-09] MEDS: ASCORBIC ACID 500 MG TAB PO SCH ×2 (09:31→20:54)
[2016-11-09] MEDS: L ACIDOPHIL/B LACTIS/B LONGUM CAPSULE PO SCH ×3 (09:31→20:54)
[2016-11-09] MEDS: POTASSIUM CHLORIDE 20 MEQ POWDER FOR ORAL SOLN GTB SCH (09:31)
[2016-11-09] MEDS: TRIMETHOPRIM/SULFAMETHOX (DS) TAB PO SCH ×2 (09:31→20:54)
[2016-11-09] MEDS: SODIUM CHLORIDE 1 GM TAB PO SCH ×2 (09:31→20:54)
--- NOTE | 2016-11-09 11:18 | CONS ---
Date/Time of Note Date/Time of Note DATE: 11/09/16 TIME: 11:17 Assessment/Plan Assessment/Plan Additional Assessment/Plan SIRS Intermittent hypotension Diastolic congestive heart failure, compensated Pulmonary hypertension Preserved ejection fraction Tricuspid valve regurgitation Lung cancer -Blood pressure trend improving, frequent episodes of sinus tachycardia. Etiology possibly secondary to sepsis, pain, anxiety versus volume status. Would continue to hold any antihypertensive medications. Fluids and electrolyte management as per our nephrology colleagues. Consultation Date/Type/Reason Admit Date/Time Sep 26, 2016 at 20:07 Type of Consultation: cv Referring Provider: DRE LOBATO MD 24 HR Interval Summary Free Text/Dictation Denies chest pain, shortness of breath or palpitations Exam/Review of Systems Vital Signs Vitals Vital Signs Date Time Temp Pulse Resp B/P Pulse Ox O2 Delivery O2 Flow Rate FiO2 11/09/16 09:55 160 11/09/16 07:40 Nasal Cannula 2.0 11/09/16 07:28 99.3 24 115/64 94 Intake and Output 11/08/16 11/08/16 11/09/16 15:00 23:00 07:00 Intake Total 820 ml Output Total 900 ml Balance -80 ml Exam Sleeping but arousable, no apparent distress Head: normocephalic Respiratory: other (Coarse breath sounds bilaterally, no wheezing) Cardiovascular: other (S1-S2 heard), regular rate and rhythm Gastrointestinal: bowel sounds, non-tender, soft Extremities: other (No edema) Results Result Diagram: 11/09/16 0630 11/09/16 0630 Results 24 hrs Laboratory Tests Test 11/09/16 06:30 White Blood Count 18.7 H Red Blood Count 3.69 L Hemoglobin 9.6 L Hematocrit 32.4 L Mean Corpuscular Volume 87.8 Mean Corpuscular Hemoglobin 26.0 L Mean Corpuscular Hemoglobin Concent 29.6 L Red Cell Distribution Width 17.7 H Platelet Count 388 Mean Platelet Volume 9.6 Neutrophils % 74.4 Lymphocytes % 12.7 L Monocytes % 9.7 Eosinophils % 2.0 Basophils % 0.6 Nucleated Red Blood Cells % 0.0 Neutrophils # 13.9 H Lymphocytes # 2.4 Monocytes # 1.8 H Eosinophils # 0.4 Basophils # 0.1 Nucleated Red Blood Cells # 0.0 Sodium Level 139 Potassium Level 4.1 Chloride Level 104 Carbon Dioxide Level 29 Anion Gap 10 # Blood Urea Nitrogen 25 H Creatinine 0.55 Glucose Level 133 Calcium Level 9.4 Medications Medications Current Medications Ondansetron HCl (Zofran Inj) 4 mg Q6 PRN IV NAUSEA AND/OR VOMITING; Start 09/26 at 22:30 Acetaminophen (Tylenol Tab) 650 mg Q6H PRN PO PAIN AND OR ELEVATED TEMP Last administered on 11/08/16 04:37; Admin Dose 650 MG; Start 09/26/16 at 23:00 Ascorbic Acid (Vitamin C) 500 mg BID PO Last administered on 11/09/16 09:31; Admin Dose 500 MG; Start 09/27/16 at 09:00 Atorvastatin Calcium (Lipitor) 20 mg QHS PO Last administered on 11/08/16 20: 23; Admin Dose 20 MG; Start 09/27/16 at 21:00 Diazepam (Valium) 10 mg DAILY PO Last administered on 11/09/16 09:31; Admin Dose 10 MG; Start 09/27/16 at 09:00 Docusate Sodium (Colace) 100 mg Q12H PRN PO CONSTIPATION; Start 09/26/16 at 23: 00 Duloxetine HCl (Cymbalta) 20 mg DAILY PO Last administered on 11/09/16 09:31; Admin Dose 20 MG; Start 09/27/16 at 09:00 Zolpidem Tartrate (Ambien) 5 mg QHS PRN PO INSOMNIA Last administered on 20:23; Admin Dose 5 MG; Start 09/26/16 at 23:00 Collagenase (Santyl) 1 applic DAILY TOP Last administered on 11/09/16 09:30; Admin Dose 1 APPLIC; Start 09/27/16 at 09:00 Collagenase (Santyl) 1 applic PRN PRN TOP SOILED OR DISLODGED DRESSING; Start 09/27/16 at 05:00 Lansoprazole (Prevacid) 30 mg DAILY@06 GTB Last administered on 11/09/16 05:02 ; Admin Dose 30 MG; Start 09/28/16 at 06:00 Cromolyn Sodium (Nasalcrom) 1 spray QID NASAL Last administered on 11/09/16 09 :30; Admin Dose 1 SPRAY; Start 09/29/16 at 11:02 Phenol (Cepastat Lozenge) 1 lozenge Q2H PRN MT SORE THROAT Last administered on 11/02/16 01:02; Admin Dose 1 LOZENGE; Start 10/01/16 at 19:00 IV Flush (NS 10 ml) 10 ml PRN PRN IV IV PROTOCOL Last administered on 08:08; Admin Dose 10 ML; Start 10/02/16 at 19:00 Lactobacillus Acidophilus (Florajen3 Capsule) 1 each TID PO Last administered on 11/09/16 09:31; Admin Dose 1 EACH; Start 10/03/16 at 21:00 Hydromorphone HCl (Dilaudid) 0.5 mg Q4H PRN IV PAIN Last administered on 09:30; Admin Dose 0.5 MG; Start 10/06/16 at 18:30 Promethazine HCl/ Codeine (Phenergan/ Codeine) 10 ml BID PRN PO COUGH Last administered on 11/07/16 17:27; Admin Dose 10 ML; Start 10/07/16 at 20:30 Potassium Chloride (Potassium Chloride Pwd/Soln) 20 meq DAILY GTB Last administered on 11/09/16 09:31; Admin Dose 20 MEQ; Start 10/30/16 at 12:00 Sodium Chloride (Nacl) 1 gm BID PO Last administered on 11/09/16 09:31; Admin Dose 1 GM; Start 11/01/16 at 21:00 Trimethoprim/ Sulfamethoxazole (Bactrim (Ds)) 1 tab BID PO Last administered on 11/09/16 09:31; Admin Dose 1 TAB; Start 11/02/16 at 12:00 Alprazolam (Xanax) 0.5 mg Q12H PRN PO ANXIETY Last administered on 11/08/16 20 :22; Admin Dose 0.5 MG; Start 11/08/16 at 20:30 Artemio Tipton DO November 09, 2016 11:18
[2016-11-09] MEDS: ACETAMINOPHEN 325 MG TAB PO PRN (13:07)
--- NOTE | 2016-11-09 13:40 | CONS ---
Date/Time of Note Date/Time of Note DATE: 11/09/16 TIME: 13:39 Assessment/Plan Assessment/Plan Chief Complaint/Hosp Course SUBJECTIVE: No acute changes. MICROBIOLOGY: Blood cultures negative. INDWELLINGS: George, PICC line placed on 10/02/2016. PEG. ANTIMICROBIALS: The patient remains on oral Bactrim. PHYSICAL EXAMINATION: GENERAL: This is a cachectic elderly woman who is awake, in no distress. HEENT: Head atraumatic, normocephalic. Sclerae anicteric. Buccal mucosa dry. NECK: Supple, trachea midline. CHEST: Rise symmetrical. Breath sounds diminished to bases. HEART: S1, S2. ABDOMEN: Soft, bowel tones present. EXTREMITIES: Without cyanosis. ASSESSMENT: 1. Recurrent urinary tract infection. 2. Hypotension, possibly secondary to dehydration, status post fluid bolus with improvement. 3. Unstageable sacral wound, status post debridement with wound VAC application and wound colonized with multiple bacteria; no evidence of active infection as per discussion with surgery. 4. Cachexia. 5. Lung cancer. 6. Failure to thrive. PLAN: The patient remains unchanged. Continue present care. Continue on current antibiotics. Prognosis poor DW staff Problems: Consultation Date/Type/Reason Admit Date/Time Sep 26, 2016 at 20:07 Type of Consultation: ID Referring Provider: DRE LOBATO MD Exam/Review of Systems Vital Signs Vitals Vital Signs Date Time Temp Pulse Resp B/P Pulse Ox O2 Delivery O2 Flow Rate FiO2 11/09/16 12:30 128 11/09/16 11:29 98.3 22 123/78 96 11/09/16 07:40 Nasal Cannula 2.0 Intake and Output 11/08/16 11/08/16 11/09/16 15:00 23:00 07:00 Intake Total 820 ml Output Total 900 ml Balance -80 ml Results Result Diagram: 11/09/16 0630 11/09/16 0630 Results 24 hrs Laboratory Tests Test 11/09/16 06:30 White Blood Count 18.7 H Red Blood Count 3.69 L Hemoglobin 9.6 L Hematocrit 32.4 L Mean Corpuscular Volume 87.8 Mean Corpuscular Hemoglobin 26.0 L Mean Corpuscular Hemoglobin Concent 29.6 L Red Cell Distribution Width 17.7 H Platelet Count 388 Mean Platelet Volume 9.6 Neutrophils % 74.4 Lymphocytes % 12.7 L Monocytes % 9.7 Eosinophils % 2.0 Basophils % 0.6 Nucleated Red Blood Cells % 0.0 Neutrophils # 13.9 H Lymphocytes # 2.4 Monocytes # 1.8 H Eosinophils # 0.4 Basophils # 0.1 Nucleated Red Blood Cells # 0.0 Sodium Level 139 Potassium Level 4.1 Chloride Level 104 Carbon Dioxide Level 29 Anion Gap 10 # Blood Urea Nitrogen 25 H Creatinine 0.55 Glucose Level 133 Calcium Level 9.4 Medications Medications Current Medications Ondansetron HCl (Zofran Inj) 4 mg Q6 PRN IV NAUSEA AND/OR VOMITING; Start 09/26 at 22:30 Acetaminophen (Tylenol Tab) 650 mg Q6H PRN PO PAIN AND OR ELEVATED TEMP Last administered on 11/09/16 13:07; Admin Dose 650 MG; Start 09/26/16 at 23:00 Ascorbic Acid (Vitamin C) 500 mg BID PO Last administered on 11/09/16 09:31; Admin Dose 500 MG; Start 09/27/16 at 09:00 Atorvastatin Calcium (Lipitor) 20 mg QHS PO Last administered on 11/08/16 20: 23; Admin Dose 20 MG; Start 09/27/16 at 21:00 Diazepam (Valium) 10 mg DAILY PO Last administered on 11/09/16 09:31; Admin Dose 10 MG; Start 09/27/16 at 09:00 Docusate Sodium (Colace) 100 mg Q12H PRN PO CONSTIPATION; Start 09/26/16 at 23: 00 Duloxetine HCl (Cymbalta) 20 mg DAILY PO Last administered on 11/09/16 09:31; Admin Dose 20 MG; Start 09/27/16 at 09:00 Zolpidem Tartrate (Ambien) 5 mg QHS PRN PO INSOMNIA Last administered on 20:23; Admin Dose 5 MG; Start 09/26/16 at 23:00 Collagenase (Santyl) 1 applic DAILY TOP Last administered on 11/09/16 09:30; Admin Dose 1 APPLIC; Start 09/27/16 at 09:00 Collagenase (Santyl) 1 applic PRN PRN TOP SOILED OR DISLODGED DRESSING; Start 09/27/16 at 05:00 Lansoprazole (Prevacid) 30 mg DAILY@06 GTB Last administered on 11/09/16 05:02 ; Admin Dose 30 MG; Start 09/28/16 at 06:00 Cromolyn Sodium (Nasalcrom) 1 spray QID NASAL Last administered on 11/09/16 13 :07; Admin Dose 1 SPRAY; Start 09/29/16 at 11:02 Phenol (Cepastat Lozenge) 1 lozenge Q2H PRN MT SORE THROAT Last administered on 11/02/16 01:02; Admin Dose 1 LOZENGE; Start 10/01/16 at 19:00 IV Flush (NS 10 ml) 10 ml PRN PRN IV IV PROTOCOL Last administered on 08:08; Admin Dose 10 ML; Start 10/02/16 at 19:00 Lactobacillus Acidophilus (Florajen3 Capsule) 1 each TID PO Last administered on 11/09/16 13:07; Admin Dose 1 EACH; Start 10/03/16 at 21:00 Hydromorphone HCl (Dilaudid) 0.5 mg Q4H PRN IV PAIN Last administered on 09:30; Admin Dose 0.5 MG; Start 10/06/16 at 18:30 Promethazine HCl/ Codeine (Phenergan/ Codeine) 10 ml BID PRN PO COUGH Last administered on 11/07/16 17:27; Admin Dose 10 ML; Start 10/07/16 at 20:30 Potassium Chloride (Potassium Chloride Pwd/Soln) 20 meq DAILY GTB Last administered on 11/09/16 09:31; Admin Dose 20 MEQ; Start 10/30/16 at 12:00 Sodium Chloride (Nacl) 1 gm BID PO Last administered on 11/09/16 09:31; Admin Dose 1 GM; Start 11/01/16 at 21:00 Trimethoprim/ Sulfamethoxazole (Bactrim (Ds)) 1 tab BID PO Last administered on 11/09/16 09:31; Admin Dose 1 TAB; Start 11/02/16 at 12:00 Alprazolam (Xanax) 0.5 mg Q12H PRN PO ANXIETY Last administered on 11/08/16 20 :22; Admin Dose 0.5 MG; Start 11/08/16 at 20:30 RUBIN MAYEN NP November 09, 2016 13:40
--- NOTE | 2016-11-09 17:04 | PN ---
Date/Time of Note Date/Time of Note DATE: 11/09/16 TIME: 17:02 Assessment/Plan VTE Prophylaxis VTE Prophylaxis Intervention: other Lines/Catheters IV C[facility]ter Type (from [facility] PICC Line Central line still needed: Yes Urinary Cath still in place: Yes Reason Cath still needed: urinary retention Assessment/Plan Assessment/Plan - non compliance - will get social science analyst consult - reinforce imp of taking meds - Persistent leukocytosis. Patient complete treatment with antibiotics, currently on Bactrim. - Recurrent urinary tract infection with George catheter. Continue to monitor. - Chronic obstructive pulmonary disease. Continue breathing treatment. - Left lung squamous carcinoma. The patient is not a candidate for chemotherapy per previous assessment. - Multiple decubitus ulcers, status post wound debridement by Dr. Sinclair of sacrococcygeal wound. The patient is currently on wound VAC. Continue to follow up surgical recommendations. - Dysphagia with G-tube placement. Continue feeding through G-tube, strict aspiration precaution. - Hypothyroidism. Continue Synthroid. - Anemia of chronic disease. Continue to monitor hemoglobin and hematocrit. - Hyponatremia, resolved. - Chronic pain. Continue Prevacid for peptic ulcer disease prophylaxis and sequential compression device for deep venous thrombosis prophylaxis. Further recommendations based on clinical course. Plan of care discussed with Dr. Dozier. Exam/Review of Systems Vital Signs Vitals Vital Signs Date Time Temp Pulse Resp B/P Pulse Ox O2 Delivery O2 Flow Rate FiO2 11/09/16 16:37 113 11/09/16 16:11 2.0 11/09/16 15:30 98.0 16 116/89 98 11/09/16 07:40 Nasal Cannula Intake and Output 11/08/16 11/08/16 11/09/16 14:59 22:59 06:59 Intake Total 820 ml Output Total 900 ml Balance -80 ml Exam Constitutional: alert Psych: no complaints Respiratory: clear to auscultation, normal air movement Cardiovascular: nl pulses, regular rate and rhythm Gastrointestinal: non-tender, soft Musculoskeletal: muscle weakness, nl extremities to inspection Extremities: normal pulses Neurological: confused, nl speech Skin: other Lymph: nontender Results Result Diagram: 11/09/16 0630 11/09/16 0630 Results 24 hrs Laboratory Tests Test 11/09/16 06:30 White Blood Count 18.7 H Red Blood Count 3.69 L Hemoglobin 9.6 L Hematocrit 32.4 L Mean Corpuscular Volume 87.8 Mean Corpuscular Hemoglobin 26.0 L Mean Corpuscular Hemoglobin Concent 29.6 L Red Cell Distribution Width 17.7 H Platelet Count 388 Mean Platelet Volume 9.6 Neutrophils % 74.4 Lymphocytes % 12.7 L Monocytes % 9.7 Eosinophils % 2.0 Basophils % 0.6 Nucleated Red Blood Cells % 0.0 Neutrophils # 13.9 H Lymphocytes # 2.4 Monocytes # 1.8 H Eosinophils # 0.4 Basophils # 0.1 Nucleated Red Blood Cells # 0.0 Sodium Level 139 Potassium Level 4.1 Chloride Level 104 Carbon Dioxide Level 29 Anion Gap 10 # Blood Urea Nitrogen 25 H Creatinine 0.55 Glucose Level 133 Calcium Level 9.4 Medications Medications Current Medications Ondansetron HCl (Zofran Inj) 4 mg Q6 PRN IV NAUSEA AND/OR VOMITING; Start 09/26 at 22:30 Acetaminophen (Tylenol Tab) 650 mg Q6H PRN PO PAIN AND OR ELEVATED TEMP Last administered on 11/09/16 13:07; Admin Dose 650 MG; Start 09/26/16 at 23:00 Ascorbic Acid (Vitamin C) 500 mg BID PO Last administered on 11/09/16 09:31; Admin Dose 500 MG; Start 09/27/16 at 09:00 Atorvastatin Calcium (Lipitor) 20 mg QHS PO Last administered on 11/08/16 20: 23; Admin Dose 20 MG; Start 09/27/16 at 21:00 Diazepam (Valium) 10 mg DAILY PO Last administered on 11/09/16 09:31; Admin Dose 10 MG; Start 09/27/16 at 09:00 Docusate Sodium (Colace) 100 mg Q12H PRN PO CONSTIPATION; Start 09/26/16 at 23: 00 Duloxetine HCl (Cymbalta) 20 mg DAILY PO Last administered on 11/09/16 09:31; Admin Dose 20 MG; Start 09/27/16 at 09:00 Zolpidem Tartrate (Ambien) 5 mg QHS PRN PO INSOMNIA Last administered on 20:23; Admin Dose 5 MG; Start 09/26/16 at 23:00 Collagenase (Santyl) 1 applic DAILY TOP Last administered on 11/09/16 09:30; Admin Dose 1 APPLIC; Start 09/27/16 at 09:00 Collagenase (Santyl) 1 applic PRN PRN TOP SOILED OR DISLODGED DRESSING; Start 09/27/16 at 05:00 Lansoprazole (Prevacid) 30 mg DAILY@06 GTB Last administered on 11/09/16 05:02 ; Admin Dose 30 MG; Start 09/28/16 at 06:00 Cromolyn Sodium (Nasalcrom) 1 spray QID NASAL Last administered on 11/09/16 16 :11; Admin Dose 1 SPRAY; Start 09/29/16 at 11:02 Phenol (Cepastat Lozenge) 1 lozenge Q2H PRN MT SORE THROAT Last administered on 11/02/16 01:02; Admin Dose 1 LOZENGE; Start 10/01/16 at 19:00 IV Flush (NS 10 ml) 10 ml PRN PRN IV IV PROTOCOL Last administered on 08:08; Admin Dose 10 ML; Start 10/02/16 at 19:00 Lactobacillus Acidophilus (Florajen3 Capsule) 1 each TID PO Last administered on 11/09/16 13:07; Admin Dose 1 EACH; Start 10/03/16 at 21:00 Hydromorphone HCl (Dilaudid) 0.5 mg Q4H PRN IV PAIN Last administered on 13:46; Admin Dose 0.5 MG; Start 10/06/16 at 18:30 Promethazine HCl/ Codeine (Phenergan/ Codeine) 10 ml BID PRN PO COUGH Last administered on 11/07/16 17:27; Admin Dose 10 ML; Start 10/07/16 at 20:30 Potassium Chloride (Potassium Chloride Pwd/Soln) 20 meq DAILY GTB Last administered on 11/09/16 09:31; Admin Dose 20 MEQ; Start 10/30/16 at 12:00 Sodium Chloride (Nacl) 1 gm BID PO Last administered on 11/09/16 09:31; Admin Dose 1 GM; Start 11/01/16 at 21:00 Trimethoprim/ Sulfamethoxazole (Bactrim (Ds)) 1 tab BID PO Last administered on 11/09/16 09:31; Admin Dose 1 TAB; Start 11/02/16 at 12:00 Alprazolam (Xanax) 0.5 mg Q12H PRN PO ANXIETY Last administered on 11/08/16t 20 :22; Admin Dose 0.5 MG; Start 11/08/16 at 20:30 VIKASH CASTANEDA November 09, 2016 17:04
[2016-11-09] MEDS: ALPRAZOLAM 0.25 MG TAB PO PRN (20:54)
[2016-11-09] MEDS: ATORVASTATIN 20 MG TAB PO SCH (21:00)
--- NOTE | 2016-11-09 23:25 | PN ---
Date/Time of Note Date/Time of Note DATE: 11/09/16 TIME: 23:24 Assessment/Plan Lines/Catheters IV Catheter Type (from Nrs): PICC Line George in Place (from Nrs): Yes Assessment/Plan Chief Complaint/Hosp Course 1. Multiple decubitus ulcers with debris. Sacrococcygeal ulcer s/p exc boris . -Offload -Optimize nutrition -Vitamin C -Local care 2. UTI s/p abx 3. 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 Acute on chronic diastolic heart failure -Judicious fluid management -Cardiac optimization 5. Hypertension -Diet and medication control 6. Chronic urinary retention with George 7. Depression. -Medical management 8. Hypothyroidism by history. -Synthroid 9. Anemia of chronic disease in addition to iron deficiency anemia. -Continue iron supplements. -Transfusion when necessary 10. Chronic pain syndrome. Continue pain management. Thank you Problems: Subjective 24 Hr Interval Summary Leukocytosis. Tachyarrhythmia. No fevers, chills, nausea, vomiting, or abdominal pain. No abnormal vaginal discharge. No bloating. No cough, sz, bloating. No robles/dizzy/visual or neuro changes. Exam/Review of Systems Vital Signs Vitals Vital Signs Date Time Temp Pulse Resp B/P Pulse Ox O2 Delivery O2 Flow Rate FiO2 11/09/16 22:15 2.0 11/09/16 20:37 127 11/09/16 20:24 97.7 18 114/86 92 11/09/16 07:40 Nasal Cannula Intake and Output 11/08/16 11/08/16 11/09/16 15:00 23:00 07:00 Intake Total 820 ml Output Total 900 ml Balance -80 ml Exam Free Text/Dictation GENERAL: Elderly, cachectic, no acute distress. HEENT: Head is atraumatic, normocephalic. Pupils equal, round, reactive to light and accommodation. Oral mucosa is pink and moist. NECK: Supple, no cervical lymphadenopathy LUNGS: Normal respiratory effort CARDIAC: S1 and S2. Tachy, Irregular ABDOMEN: Flat, soft and nondistended. Nontender. No rebound or guarding. SKIN: Multiple decubitus wounds/ulcers buttock sacrum and right lower extremity EXTREMITIES: No edema. Pulses equal bilaterally, 2+. NEUROLOGICAL: Responsive VASCULAR: Refill is less than 2 seconds Results Result Diagram: 11/09/16 0630 11/09/16 0630 ZAK POSEY MD November 09, 2016 23:25
[2016-11-10] VITALS (13 sets, daily range): BP systolic 106–126; BP diastolic 65–92; PULSE 117–139; RESP 17–23
[2016-11-10] MEDS: HYDROmorphONE 1 MG/ML SYG IV PRN ×6 (01:11→21:13)
[2016-11-10] MEDS: LEVOTHYROXINE 125 MCG TAB PO SCH (05:30)
[2016-11-10] MEDS: LANSOPRAZOLE 30 MG CAP GTB SCH (05:30)
[2016-11-10 07:51] LABS: ADD SCAN DIFF NO
[2016-11-10 07:59] LABS: ABNORMAL IP MESSAGE 1; BASOPHIL # 0.1 10^3/ul (0.0-0.1); BASOPHILS % 0.6 % (0.0-2.0); EOSINOPHILS # 0.4 10^3/ul (0.0-0.5); EOSINOPHILS % 1.8 % (0.0-7.0); HEMATOCRIT 33.4 % (37.0-47.0); HEMOGLOBIN 9.9 g/dl (12.0-16.0); LYMPHOCYTES # 1.9 10^3/ul (0.8-2.9); LYMPHOCYTES % 9.9 % (15.0-51.0); MEAN CORPUSCULAR HGB CONC 29.6 g/dl (32.0-37.0); MEAN CORPUSCULAR VOLUME 87.7 fl (82.0-101.0); MEAN PLATELET VOLUME 9.5 fl (7.4-10.4); MONOCYTE # 1.6 10^3/ul (0.3-0.9); MONOCYTES % 8.1 % (0.0-11.0); NEUTROPHIL # 15.5 10^3/ul (1.6-7.5); NEUTROPHILS % 78.8 % (39.0-77.0); PLATELET COUNT 419 10^3/UL (140-415); RED BLOOD COUNT 3.81 10^6/ul (4.20-5.40); RED CELL DISTRIBUTION WIDTH 17.9 % (11.5-14.5); WHITE BLOOD COUNT 19.6 10^3/ul (4.8-10.8)
[2016-11-10 08:12] LABS: POTASSIUM 4.7 mmol/L (3.5-5.1)
[2016-11-10 08:15] LABS: CREATININE 0.51 mg/dl (0.44-1.00)
[2016-11-10] MEDS: PROMETHAZINE/CODEINE 5ML CUP PO PRN (09:22)
[2016-11-10] MEDS: L ACIDOPHIL/B LACTIS/B LONGUM CAPSULE PO SCH ×3 (09:23→21:13)
[2016-11-10] MEDS: TRIMETHOPRIM/SULFAMETHOX (DS) TAB PO SCH (09:23)
[2016-11-10] MEDS: POTASSIUM CHLORIDE 20 MEQ POWDER FOR ORAL SOLN GTB SCH (09:23)
[2016-11-10] MEDS: SODIUM CHLORIDE 1 GM TAB PO SCH ×2 (09:23→21:18)
[2016-11-10] MEDS: DULOXETINE 20 MG CAP DR PO SCH (09:23)
[2016-11-10] MEDS: ASCORBIC ACID 500 MG TAB PO SCH ×2 (09:23→21:13)
[2016-11-10] MEDS: DIAZEPAM 5 MG TAB PO SCH (09:23)
[2016-11-10] MEDS: CROMOLYN 4% 26ML NAS INH NASAL SCH ×4 (09:24→21:22)
[2016-11-10] MEDS: COLLAGENASE 30 GM TUBE TOP SCH (09:24)
--- NOTE | 2016-11-10 10:06 | CONS ---
Date/Time of Note Date/Time of Note DATE: 11/10/16 TIME: 10:04 Assessment/Plan Assessment/Plan Additional Assessment/Plan Sepsis Intermittent hypotension Diastolic congestive heart failure, compensated Pulmonary hypertension Preserved ejection fraction Tricuspid valve regurgitation Lung cancer -Blood pressure trend improving, frequent episodes of sinus tachycardia. Etiology possibly secondary to sepsis, pain, anxiety versus volume status. Would continue to hold any antihypertensive medications. Fluids and electrolyte management as per our nephrology colleagues. Consultation Date/Type/Reason Admit Date/Time Sep 26, 2016 at 20:07 Type of Consultation: cv Referring Provider: DRE LOBATO MD 24 HR Interval Summary Free Text/Dictation Patient denies shortness of breath. Complaining of back and buttock pain which has been worsening Exam/Review of Systems Vital Signs Vitals Vital Signs Date Time Temp Pulse Resp B/P Pulse Ox O2 Delivery O2 Flow Rate FiO2 11/10/16 08:44 120 11/10/16 07:26 98.4 18 119/81 96 11/10/16 01:16 2.0 11/09/16 20:00 Nasal Cannula Intake and Output 11/09/16 11/09/16 11/10/16 15:00 23:00 07:00 Intake Total 840 ml 880 ml Output Total 800 ml 550 ml Balance 40 ml 330 ml Exam No apparent distress Constitutional: alert, frail, oriented Head: normocephalic Respiratory: other (Coarse breath sounds bilaterally, no wheezing) Cardiovascular: other (S1-S2 heard), regular rate and rhythm Gastrointestinal: bowel sounds, non-tender, soft Extremities: other (No edema) Results Result Diagram: 11/10/16 0648 11/10/16 0648 Results 24 hrs Laboratory Tests Test 11/10/16 06:48 White Blood Count 19.6 H Red Blood Count 3.81 L Hemoglobin 9.9 L Hematocrit 33.4 L Mean Corpuscular Volume 87.7 Mean Corpuscular Hemoglobin 26.0 L Mean Corpuscular Hemoglobin Concent 29.6 L Red Cell Distribution Width 17.9 H Platelet Count 419 H Mean Platelet Volume 9.5 Neutrophils % 78.8 H Lymphocytes % 9.9 L Monocytes % 8.1 Eosinophils % 1.8 Basophils % 0.6 Nucleated Red Blood Cells % 0.0 Neutrophils # 15.5 H Lymphocytes # 1.9 Monocytes # 1.6 H Eosinophils # 0.4 Basophils # 0.1 Nucleated Red Blood Cells # 0.0 Sodium Level 143 Potassium Level 4.7 Chloride Level 103 Carbon Dioxide Level 26 Anion Gap 19 #H Blood Urea Nitrogen 28 H Creatinine 0.51 Glucose Level 139 Calcium Level 9.0 Medications Medications Current Medications Ondansetron HCl (Zofran Inj) 4 mg Q6 PRN IV NAUSEA AND/OR VOMITING; Start 09/26 at 22:30 Acetaminophen (Tylenol Tab) 650 mg Q6H PRN PO PAIN AND OR ELEVATED TEMP Last administered on 11/09/16 13:07; Admin Dose 650 MG; Start 09/26/16 at 23:00 Ascorbic Acid (Vitamin C) 500 mg BID PO Last administered on 11/10/16 09:23; Admin Dose 500 MG; Start 09/27/16 at 09:00 Atorvastatin Calcium (Lipitor) 20 mg QHS PO Last administered on 11/09/16 21: 00; Admin Dose 20 MG; Start 09/27/16 at 21:00 Diazepam (Valium) 10 mg DAILY PO Last administered on 11/10/16 09:23; Admin Dose 10 MG; Start 09/27/16 at 09:00 Docusate Sodium (Colace) 100 mg Q12H PRN PO CONSTIPATION Last administered on 09:23; Admin Dose 100 MG; Start 09/26/16 at 23:00 Duloxetine HCl (Cymbalta) 20 mg DAILY PO Last administered on 11/10/16 09:23; Admin Dose 20 MG; Start 09/27/16 at 09:00 Zolpidem Tartrate (Ambien) 5 mg QHS PRN PO INSOMNIA Last administered on 20:23; Admin Dose 5 MG; Start 09/26/16 at 23:00 Collagenase (Santyl) 1 applic DAILY TOP Last administered on 11/10/16 09:24; Admin Dose 1 APPLIC; Start 09/27/16 at 09:00 Collagenase (Santyl) 1 applic PRN PRN TOP SOILED OR DISLODGED DRESSING; Start 09/27/16 at 05:00 Lansoprazole (Prevacid) 30 mg DAILY@06 GTB Last administered on 11/10/16 05:30 ; Admin Dose 30 MG; Start 09/28/16 at 06:00 Cromolyn Sodium (Nasalcrom) 1 spray QID NASAL Last administered on 11/10/16 09 :24; Admin Dose 1 SPRAY; Start 09/29/16 at 11:02 Phenol (Cepastat Lozenge) 1 lozenge Q2H PRN MT SORE THROAT Last administered on 11/02/16 01:02; Admin Dose 1 LOZENGE; Start 10/01/16 at 19:00 IV Flush (NS 10 ml) 10 ml PRN PRN IV IV PROTOCOL Last administered on 08:08; Admin Dose 10 ML; Start 10/02/16 at 19:00 Lactobacillus Acidophilus (Florajen3 Capsule) 1 each TID PO Last administered on 11/10/16 09:23; Admin Dose 1 EACH; Start 10/03/16 at 21:00 Hydromorphone HCl (Dilaudid) 0.5 mg Q4H PRN IV PAIN Last administered on 09:23; Admin Dose 0.5 MG; Start 10/06/16 at 18:30 Promethazine HCl/ Codeine (Phenergan/ Codeine) 10 ml BID PRN PO COUGH Last administered on 11/10/16 09:22; Admin Dose 10 ML; Start 10/07/16 at 20:30 Potassium Chloride (Potassium Chloride Pwd/Soln) 20 meq DAILY GTB Last administered on 11/10/16 09:23; Admin Dose 20 MEQ; Start 10/30/16 at 12:00 Sodium Chloride (Nacl) 1 gm BID PO Last administered on 11/10/16 09:23; Admin Dose 1 GM; Start 11/01/16 at 21:00 Trimethoprim/ Sulfamethoxazole (Bactrim (Ds)) 1 tab BID PO Last administered on 11/10/16 09:23; Admin Dose 1 TAB; Start 11/02/16 at 12:00 Alprazolam (Xanax) 0.5 mg Q12H PRN PO ANXIETY Last administered on 11/09/16 20 :54; Admin Dose 0.5 MG; Start 11/08/16 at 20:30 Artemio Tipton DO November 10, 2016 10:06
--- NOTE | 2016-11-10 14:09 | PN ---
Date/Time of Note Date/Time of Note DATE: 11/10/16 TIME: 14:08 Assessment/Plan Lines/Catheters IV Catheter Type (from Nrs): PICC Line George in Place (from [facility]): Yes Assessment/Plan Chief Complaint/Hosp Course 1. Multiple decubitus ulcers with debris. Sacrococcygeal ulcer s/p exc boris . -Offload -Optimize nutrition -Vitamin C -Local care 2. UTI s/p abx 3. 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 Acute on chronic diastolic heart failure -Judicious fluid management -Cardiac optimization 5. Hypertension -Diet and medication control 6. Chronic urinary retention with George 7. Depression. -Medical management 8. Hypothyroidism by history. -Synthroid 9. Anemia of chronic disease in addition to iron deficiency anemia. -Continue iron supplements. -Transfusion when necessary 10. Chronic pain syndrome. Continue pain management. Thank you Problems: Subjective 24 Hr Interval Summary Leukocytosis worsening. Tachyarrhythmia. No fevers, chills, nausea, vomiting, or abdominal pain. No abnormal vaginal discharge. No bloating. No cough, sz, bloating. No robles/dizzy/visual or neuro changes. Exam/Review of Systems Vital Signs Vitals Vital Signs Date Time Temp Pulse Resp B/P Pulse Ox O2 Delivery O2 Flow Rate FiO2 11/10/16 12:24 136 11/10/16 11:18 98.1 23 109/81 97 11/10/16 01:16 2.0 11/09/16 20:00 Nasal Cannula Intake and Output 11/09/16 11/09/16 11/10/16 15:00 23:00 07:00 Intake Total 840 ml 880 ml Output Total 800 ml 550 ml Balance 40 ml 330 ml Exam Free Text/Dictation GENERAL: Elderly, cachectic, no acute distress. HEENT: Head is atraumatic, normocephalic. Pupils equal, round, reactive to light and accommodation. Oral mucosa is pink and moist. NECK: Supple, no cervical lymphadenopathy LUNGS: Normal respiratory effort CARDIAC: S1 and S2. Tachy, Irregular ABDOMEN: Flat, soft and nondistended. Nontender. No rebound or guarding. SKIN: Multiple decubitus wounds/ulcers buttock sacrum and right lower extremity EXTREMITIES: No edema. Pulses equal bilaterally, 2+. NEUROLOGICAL: Responsive VASCULAR: Refill is less than 2 seconds Results Result Diagram: 11/10/16 0648 11/10/16 0648 ZAK POSEY MD November 10, 2016 14:09
--- NOTE | 2016-11-10 14:44 | PN ---
DATE: 11/10/2016 INFECTIOUS DISEASE PROGRESS NOTE SUBJECTIVE: No events overnight. No fevers. The patient is lying comfortably in bed, no vomiting, no diarrhea. LABORATORY DATA: WBC today increased to 19.6 with neutrophils 78.8, BUN 28, creatinine 0.51. INDWELLINGS: PICC line, PEG, George catheter. PHYSICAL EXAMINATION: GENERAL: This is a cachectic elderly woman who is lying comfortably in bed. HEENT: Head atraumatic, normocephalic. Sclerae anicteric. Buccal mucosa dry. NECK: Supple, trachea midline. CHEST: Rise symmetrical. Breath sounds diminished to bases. HEART: S1, S2. ABDOMEN: Soft. Bowel sounds present. EXTREMITIES: Wasted without cyanosis. ASSESSMENT: 1. Systemic inflammatory response syndrome with persistent leukocytosis, possibly reactive, possibl y secondary to malignancy. 2. Status post urinary tract infection. 3. Unstageable sacral decubitus, status post debridement with wound VAC application. Per discussio n with Dr. Sinclair, the wound looks clean. 4. Cachexia. 5. Lung cancer. PLAN: The patient remains clinically unchanged. We will start her on empiric Flagyl given history of Clostridium difficile colitis, discontinue Bactrim, continue supportive measures. OVERALL PROGNOSIS: Poor. Dictated By: RUBIN MAYEN PHYSICAL THER for JUAN COLLIER/SANDER Conf#: [id number] DID#: [id number]
[2016-11-10] MEDS: metroNIDAZOLE 500 MG TAB PO SCH ×2 (16:02→22:58)
--- NOTE | 2016-11-10 16:58 | PN ---
Date/Time of Note Date/Time of Note DATE: 11/10/16 TIME: 16:57 Assessment/Plan VTE Prophylaxis VTE Prophylaxis Intervention: SCD's Lines/Catheters IV C[facility] Type [facility]from [facility] PICC Line Central line still needed: Yes Urinary Cath still in place: Yes Reason Cath still needed: urinary retention Assessment/Plan Chief Complaint/Hosp Course Patient is awake alert, tachycardic with persistent leukocytosis. ASSESSMENT AND PLAN: - Persistent leukocytosis. Patient complete treatment with antibiotics, currently on Bactrim. - Recurrent urinary tract infection with George catheter. Continue to monitor. - Chronic obstructive pulmonary disease. Continue breathing treatment. - Left lung squamous carcinoma. The patient is not a candidate for chemotherapy per previous assessment. - Multiple decubitus ulcers, status post wound debridement by Dr. Sinclair of sacrococcygeal wound. The patient is currently on wound VAC. Continue to follow up surgical recommendations. - Dysphagia with G-tube placement. Continue feeding through G-tube, strict aspiration precaution. - Hypothyroidism. Continue Synthroid. - Anemia of chronic disease. Continue to monitor hemoglobin and hematocrit. - Hyponatremia, resolved. - Chronic pain. Continue Prevacid for peptic ulcer disease prophylaxis and sequential compression device for deep venous thrombosis prophylaxis. Further recommendations based on clinical course. Plan of care discussed with Dr. Dozier. Problems: Exam/Review of Systems Vital Signs Vitals Vital Signs Date Time Temp Pulse Resp B/P Pulse Ox O2 Delivery O2 Flow Rate FiO2 11/10/16 16:33 117 11/10/16 15:29 97.9 18 117/65 98 11/10/16 15:24 2.0 11/09/16 20:00 Nasal Cannula Intake and Output 11/09/16 11/09/16 11/10/16 15:00 23:00 07:00 Intake Total 840 ml 880 ml Output Total 800 ml 550 ml Balance 40 ml 330 ml Exam GENERAL: Cachectic female currently is awake, alert. LUNGS: Clear bilaterally, slightly diminished at the bases. HEART: The patient is tachycardic. Normal S1, S2. No murmurs. ABDOMEN: Flat, soft, nondistended. G-tube present. EXTREMITIES: Normal pulses, no edema. SKIN: Multiple decubitus ulcers including bilateral buttocks and bilateral lower extremities and wound VAC to sacral decubitus. NEUROLOGIC: The patient is awake, alert to name and situation. Results Result Diagram: 11/10/16 0648 11/10/16 0648 Results 24 hrs Laboratory Tests Test 11/10/16 06:48 White Blood Count 19.6 H Red Blood Count 3.81 L Hemoglobin 9.9 L Hematocrit 33.4 L Mean Corpuscular Volume 87.7 Mean Corpuscular Hemoglobin 26.0 L Mean Corpuscular Hemoglobin Concent 29.6 L Red Cell Distribution Width 17.9 H Platelet Count 419 H Mean Platelet Volume 9.5 Neutrophils % 78.8 H Lymphocytes % 9.9 L Monocytes % 8.1 Eosinophils % 1.8 Basophils % 0.6 Nucleated Red Blood Cells % 0.0 Neutrophils # 15.5 H Lymphocytes # 1.9 Monocytes # 1.6 H Eosinophils # 0.4 Basophils # 0.1 Nucleated Red Blood Cells # 0.0 Sodium Level 143 Potassium Level 4.7 Chloride Level 103 Carbon Dioxide Level 26 Anion Gap 19 #H Blood Urea Nitrogen 28 H Creatinine 0.51 Glucose Level 139 Calcium Level 9.0 Medications Medications Current Medications Ondansetron HCl (Zofran Inj) 4 mg Q6 PRN IV NAUSEA AND/OR VOMITING; Start 09/26 at 22:30 Acetaminophen (Tylenol Tab) 650 mg Q6H PRN PO PAIN AND OR ELEVATED TEMP Last administered on 11/09/16 13:07; Admin Dose 650 MG; Start 09/26/16 at 23:00 Ascorbic Acid (Vitamin C) 500 mg BID PO Last administered on 11/10/16 09:23; Admin Dose 500 MG; Start 09/27/16 at 09:00 Atorvastatin Calcium (Lipitor) 20 mg QHS PO Last administered on 11/09/16 21: 00; Admin Dose 20 MG; Start 09/27/16 at 21:00 Diazepam (Valium) 10 mg DAILY PO Last administered on 11/10/16 09:23; Admin Dose 10 MG; Start 09/27/16 at 09:00 Docusate Sodium (Colace) 100 mg Q12H PRN PO CONSTIPATION Last administered on 09:23; Admin Dose 100 MG; Start 09/26/16 at 23:00 Duloxetine HCl (Cymbalta) 20 mg DAILY PO Last administered on 11/10/16 09:23; Admin Dose 20 MG; Start 09/27/16 at 09:00 Zolpidem Tartrate (Ambien) 5 mg QHS PRN PO INSOMNIA Last administered on 20:23; Admin Dose 5 MG; Start 09/26/16 at 23:00 Collagenase (Santyl) 1 applic DAILY TOP Last administered on 11/10/16 09:24; Admin Dose 1 APPLIC; Start 09/27/16 at 09:00 Collagenase (Santyl) 1 applic PRN PRN TOP SOILED OR DISLODGED DRESSING; Start 09/27/16 at 05:00 Lansoprazole (Prevacid) 30 mg DAILY@06 GTB Last administered on 11/10/16 05:30 ; Admin Dose 30 MG; Start 09/28/16 at 06:00 Cromolyn Sodium (Nasalcrom) 1 spray QID NASAL Last administered on 11/10/16 16 :02; Admin Dose 1 SPRAY; Start 09/29/16 at 11:02 Phenol (Cepastat Lozenge) 1 lozenge Q2H PRN MT SORE THROAT Last administered on 11/02/16 01:02; Admin Dose 1 LOZENGE; Start 10/01/16 at 19:00 IV Flush (NS 10 ml) 10 ml PRN PRN IV IV PROTOCOL Last administered on 08:08; Admin Dose 10 ML; Start 10/02/16 at 19:00 Lactobacillus Acidophilus (Florajen3 Capsule) 1 each TID PO Last administered on 11/10/16 13:00; Admin Dose 1 EACH; Start 10/03/16 at 21:00 Hydromorphone HCl (Dilaudid) 0.5 mg Q4H PRN IV PAIN Last administered on 16:04; Admin Dose 1 MG; Start 10/06/16 at 18:30 Promethazine HCl/ Codeine (Phenergan/ Codeine) 10 ml BID PRN PO COUGH Last administered on 11/10/16 09:22; Admin Dose 10 ML; Start 10/07/16 at 20:30 Potassium Chloride (Potassium Chloride Pwd/Soln) 20 meq DAILY GTB Last administered on 11/10/16 09:23; Admin Dose 20 MEQ; Start 10/30/16 at 12:00 Sodium Chloride (Nacl) 1 gm BID PO Last administered on 11/10/16 09:23; Admin Dose 1 GM; Start 11/01/16 at 21:00 Alprazolam (Xanax) 0.5 mg Q12H PRN PO ANXIETY Last administered on 11/09/16 20 :54; Admin Dose 0.5 MG; Start 11/08/16 at 20:30 Metronidazole (Flagyl) 500 mg Q8 PO Last administered on 11/10/16 16:02; Admin Dose 500 MG; Start 11/10/16 at 14:00 REBECCA ISLAS November 10, 2016 16:58
--- NOTE | 2016-11-10 17:10 | CONS ---
Date/Time of Note Date/Time of Note DATE: 11/10/16 TIME: 17:09 Assessment/Plan Assessment/Plan Additional Assessment/Plan 1. Hyponatremia, multifactorial - pt likey has Component of SAIDH causing hypoantreia, due to acute on chronic pain 2. Status post acute kidney injury on chronic kidney disease due to systemic inflammatory response syndrome. now improved 3. Sepsis, 4. History of recurrent polymicrobial urinary tract infections. 5. History of dementia. 6. History of previous cerebrovascular accident. 7. History of chronic obstructive pulmonary disease, recently had acute respiratory failure secondary to chronic obstructive pulmonary disease exacerbation. 8. History of urinary retention with a chronic George catheter in place. 9. Chronic debility with cachexia. 10. Multiple decubitus ulcers with debris. Sacrococcygeal ulcer s/p exc boris . 11. History of degenerative joint disease of spine. 12. History of hypertension and hypertensive heart disease with mild to moderate concentric left ventricular hypertrophy and echocardiogram with diastolic dysfunction stage I.EF normal PLAN: SAIDH causing hypoantreia, s/p one dose of tolvaptan 15 mg on 10/24/16- Na normal today on Na Chloride tablet 1 gram PO BID , pt is also on bactrim, will continue to monitor her K and Cr monitor electrolytes will follow up Consultation Date/Type/Reason Admit Date/Time Sep 26, 2016 at 20:07 Type of Consultation: NEPHROLOGY Referring Provider: DRE LOBATO MD 24 HR Interval Summary Free Text/Dictation doing ok, BP stable, afebrile, Exam/Review of Systems Vital Signs Vitals Vital Signs Date Time Temp Pulse Resp B/P Pulse Ox O2 Delivery O2 Flow Rate FiO2 11/10/16 16:33 117 11/10/16 15:29 97.9 18 117/65 98 11/10/16 15:24 2.0 11/09/16 20:00 Nasal Cannula Intake and Output 11/09/16 11/09/16 11/10/16 15:00 23:00 07:00 Intake Total 840 ml 880 ml Output Total 800 ml 550 ml Balance 40 ml 330 ml Results Result Diagram: 11/10/16 0648 11/10/16 0648 Results 24 hrs Laboratory Tests Test 11/10/16 06:48 White Blood Count 19.6 H Red Blood Count 3.81 L Hemoglobin 9.9 L Hematocrit 33.4 L Mean Corpuscular Volume 87.7 Mean Corpuscular Hemoglobin 26.0 L Mean Corpuscular Hemoglobin Concent 29.6 L Red Cell Distribution Width 17.9 H Platelet Count 419 H Mean Platelet Volume 9.5 Neutrophils % 78.8 H Lymphocytes % 9.9 L Monocytes % 8.1 Eosinophils % 1.8 Basophils % 0.6 Nucleated Red Blood Cells % 0.0 Neutrophils # 15.5 H Lymphocytes # 1.9 Monocytes # 1.6 H Eosinophils # 0.4 Basophils # 0.1 Nucleated Red Blood Cells # 0.0 Sodium Level 143 Potassium Level 4.7 Chloride Level 103 Carbon Dioxide Level 26 Anion Gap 19 #H Blood Urea Nitrogen 28 H Creatinine 0.51 Glucose Level 139 Calcium Level 9.0 Medications Medications Current Medications Ondansetron HCl (Zofran Inj) 4 mg Q6 PRN IV NAUSEA AND/OR VOMITING; Start 09/26 at 22:30 Acetaminophen (Tylenol Tab) 650 mg Q6H PRN PO PAIN AND OR ELEVATED TEMP Last administered on 11/09/16 13:07; Admin Dose 650 MG; Start 09/26/16 at 23:00 Ascorbic Acid (Vitamin C) 500 mg BID PO Last administered on 11/10/16 09:23; Admin Dose 500 MG; Start 09/27/16 at 09:00 Atorvastatin Calcium (Lipitor) 20 mg QHS PO Last administered on 11/09/16 21: 00; Admin Dose 20 MG; Start 09/27/16 at 21:00 Diazepam (Valium) 10 mg DAILY PO Last administered on 11/10/16 09:23; Admin Dose 10 MG; Start 09/27/16 at 09:00 Docusate Sodium (Colace) 100 mg Q12H PRN PO CONSTIPATION Last administered on 09:23; Admin Dose 100 MG; Start 09/26/16 at 23:00 Duloxetine HCl (Cymbalta) 20 mg DAILY PO Last administered on 11/10/16 09:23; Admin Dose 20 MG; Start 09/27/16 at 09:00 Zolpidem Tartrate (Ambien) 5 mg QHS PRN PO INSOMNIA Last administered on 20:23; Admin Dose 5 MG; Start 09/26/16 at 23:00 Collagenase (Santyl) 1 applic DAILY TOP Last administered on 11/10/16 09:24; Admin Dose 1 APPLIC; Start 09/27/16 at 09:00 Collagenase (Santyl) 1 applic PRN PRN TOP SOILED OR DISLODGED DRESSING; Start 09/27/16 at 05:00 Lansoprazole (Prevacid) 30 mg DAILY@06 GTB Last administered on 11/10/16 05:30 ; Admin Dose 30 MG; Start 09/28/16 at 06:00 Cromolyn Sodium (Nasalcrom) 1 spray QID NASAL Last administered on 11/10/16 16 :02; Admin Dose 1 SPRAY; Start 09/29/16 at 11:02 Phenol (Cepastat Lozenge) 1 lozenge Q2H PRN MT SORE THROAT Last administered on 11/02/16 01:02; Admin Dose 1 LOZENGE; Start 10/01/16 at 19:00 IV Flush (NS 10 ml) 10 ml PRN PRN IV IV PROTOCOL Last administered on 08:08; Admin Dose 10 ML; Start 10/02/16 at 19:00 Lactobacillus Acidophilus (Florajen3 Capsule) 1 each TID PO Last administered on 11/10/16 13:00; Admin Dose 1 EACH; Start 10/03/16 at 21:00 Hydromorphone HCl (Dilaudid) 0.5 mg Q4H PRN IV PAIN Last administered on 16:04; Admin Dose 1 MG; Start 10/06/16 at 18:30 Promethazine HCl/ Codeine (Phenergan/ Codeine) 10 ml BID PRN PO COUGH Last administered on 11/10/16 09:22; Admin Dose 10 ML; Start 10/07/16 at 20:30 Potassium Chloride (Potassium Chloride Pwd/Soln) 20 meq DAILY GTB Last administered on 11/10/16 09:23; Admin Dose 20 MEQ; Start 10/30/16 at 12:00 Sodium Chloride (Nacl) 1 gm BID PO Last administered on 11/10/16 09:23; Admin Dose 1 GM; Start 11/01/16 at 21:00 Alprazolam (Xanax) 0.5 mg Q12H PRN PO ANXIETY Last administered on 11/09/16 20 :54; Admin Dose 0.5 MG; Start 11/08/16 at 20:30 Metronidazole (Flagyl) 500 mg Q8 PO Last administered on 11/10/16t 16:02; Admin Dose 500 MG; Start 11/10/16 at 14:00 DIONNE SAUCEDA MD November 10, 2016 17:10
[2016-11-10] MEDS: ATORVASTATIN 20 MG TAB PO SCH (21:13)
[2016-11-11] VITALS (12 sets, daily range): BP systolic 101–127; BP diastolic 60–83; PULSE 110–162; RESP 16–19
[2016-11-11] MEDS: HYDROmorphONE 1 MG/ML SYG IV PRN ×4 (01:21→19:49)
[2016-11-11] MEDS: ALPRAZOLAM 0.25 MG TAB PO PRN ×2 (04:24→18:29)
[2016-11-11] MEDS: metroNIDAZOLE 500 MG TAB PO SCH ×3 (05:15→21:23)
[2016-11-11] MEDS: LANSOPRAZOLE 30 MG CAP GTB SCH (05:15)
[2016-11-11] MEDS: LEVOTHYROXINE 125 MCG TAB PO SCH (06:02)
[2016-11-11 08:31] LABS: ADD SCAN DIFF NO
[2016-11-11 08:36] LABS: ABNORMAL IP MESSAGE 1; BASOPHIL # 0.1 10^3/ul (0.0-0.1); BASOPHILS % 0.7 % (0.0-2.0); EOSINOPHILS # 0.4 10^3/ul (0.0-0.5); EOSINOPHILS % 2.3 % (0.0-7.0); HEMATOCRIT 32.2 % (37.0-47.0); HEMOGLOBIN 9.6 g/dl (12.0-16.0); MEAN CORPUSCULAR HEMOGLOBIN 26.7 pg (29.0-33.0); MEAN CORPUSCULAR HGB CONC 29.8 g/dl (32.0-37.0); MEAN CORPUSCULAR VOLUME 89.7 fl (82.0-101.0); MEAN PLATELET VOLUME 8.9 fl (7.4-10.4); MONOCYTE # 1.7 10^3/ul (0.3-0.9); MONOCYTES % 9.5 % (0.0-11.0); NEUTROPHIL # 13.9 10^3/ul (1.6-7.5); PLATELET COUNT 437 10^3/UL (140-415); RED BLOOD COUNT 3.59 10^6/ul (4.20-5.40); RED CELL DISTRIBUTION WIDTH 17.7 % (11.5-14.5); WHITE BLOOD COUNT 18.2 10^3/ul (4.8-10.8)
[2016-11-11 09:07] LABS: POTASSIUM 4.5 mmol/L (3.5-5.1)
[2016-11-11 09:08] LABS: CALCIUM 9.7 mg/dl (8.4-10.2); CREATININE 0.56 mg/dl (0.44-1.00)
[2016-11-11] MEDS: ASCORBIC ACID 500 MG TAB PO SCH ×2 (10:15→21:23)
[2016-11-11] MEDS: DIAZEPAM 5 MG TAB PO SCH (10:15)
[2016-11-11] MEDS: SODIUM CHLORIDE 1 GM TAB PO SCH ×2 (10:15→21:24)
[2016-11-11] MEDS: DULOXETINE 20 MG CAP DR PO SCH (10:15)
[2016-11-11] MEDS: CROMOLYN 4% 26ML NAS INH NASAL SCH ×4 (10:16→21:24)
[2016-11-11] MEDS: POTASSIUM CHLORIDE 20 MEQ POWDER FOR ORAL SOLN GTB SCH (10:16)
[2016-11-11] MEDS: COLLAGENASE 30 GM TUBE TOP SCH (10:16)
[2016-11-11] MEDS: L ACIDOPHIL/B LACTIS/B LONGUM CAPSULE PO SCH ×3 (10:18→21:23)
--- NOTE | 2016-11-11 11:31 | PN ---
Date/Time of Note Date/Time of Note DATE: 11/11/16 TIME: 11:30 Assessment/Plan VTE Prophylaxis VTE Prophylaxis Intervention: SCD's Lines/Catheters IV C[facility]ter Type (from [facility]): PICC Line Central line still needed: No Urinary Cath still in place: Yes Reason Cath still needed: urinary retention Assessment/Plan Chief Complaint/Hosp Course Patient is a 66-year-old female with anemia and cancer presents for anemia and leukocytosis. The patient was sent by Dr. Dozier from [facility] for admission. The patient said that she was "not feeling well all weekend". She was brought in by ambulance. She said that she had a fever but did not check her temperature. She has had cough and urinary symptoms as well as sore throat. The patient had peristent hypotension but no sycnope and remains stabe with no chest pain and no overt CHF Problems: Assessment/Plan Sepsis Intermittent hypotension Diastolic congestive heart failure, compensated Pulmonary hypertension Preserved ejection fraction Tricuspid valve regurgitation Lung cancer -Blood pressure trend improving, frequent episodes of sinus tachycardia. Etiology possibly secondary to sepsis, pain, anxiety versus volume status. Would continue to hold any antihypertensive medications. Fluids and electrolyte management as per our nephrology colleagues. Subjective 24 Hr Interval Summary Free Text/Dictation the patient with no change Exam/Review of Systems Vital Signs Vitals Vital Signs Date Time Temp Pulse Resp B/P Pulse Ox O2 Delivery O2 Flow Rate FiO2 11/11/16 08:59 140 11/11/16 08:02 2.0 11/11/16 07:34 98.0 19 123/70 95 11/11/16 00:00 Nasal Cannula Intake and Output 11/10/16 11/10/16 11/11/16 15:00 23:00 07:00 Intake Total 750 ml 650 ml Output Total 700 ml 725 ml Balance 50 ml -75 ml Results Result Diagram: 11/11/16 0814 11/11/16 0814 Results 24 hrs Laboratory Tests Test 11/11/16 08:14 White Blood Count 18.2 H Red Blood Count 3.59 L Hemoglobin 9.6 L Hematocrit 32.2 L Mean Corpuscular Volume 89.7 Mean Corpuscular Hemoglobin 26.7 L Mean Corpuscular Hemoglobin Concent 29.8 L Red Cell Distribution Width 17.7 H Platelet Count 437 H Mean Platelet Volume 8.9 Neutrophils % 76.0 Lymphocytes % 11.0 L Monocytes % 9.5 Eosinophils % 2.3 Basophils % 0.7 Nucleated Red Blood Cells % 0.0 Neutrophils # 13.9 H Lymphocytes # 2.0 Monocytes # 1.7 H Eosinophils # 0.4 Basophils # 0.1 Nucleated Red Blood Cells # 0.0 Sodium Level 142 Potassium Level 4.5 Chloride Level 108 Carbon Dioxide Level 28 Anion Gap 11 # Blood Urea Nitrogen 30 H Creatinine 0.56 Glucose Level 121 Calcium Level 9.7 Medications Medications Current Medications Ondansetron HCl (Zofran Inj) 4 mg Q6 PRN IV NAUSEA AND/OR VOMITING; Start 09/26 at 22:30 Acetaminophen (Tylenol Tab) 650 mg Q6H PRN PO PAIN AND OR ELEVATED TEMP Last administered on 11/09/16 13:07; Admin Dose 650 MG; Start 09/26/16 at 23:00 Ascorbic Acid (Vitamin C) 500 mg BID PO Last administered on 11/11/16 10:15; Admin Dose 500 MG; Start 09/27/16 at 09:00 Atorvastatin Calcium (Lipitor) 20 mg QHS PO Last administered on 11/10/16 21: 13; Admin Dose 20 MG; Start 09/27/16 at 21:00 Diazepam (Valium) 10 mg DAILY PO Last administered on 11/11/16 10:15; Admin Dose 10 MG; Start 09/27/16 at 09:00 Docusate Sodium (Colace) 100 mg Q12H PRN PO CONSTIPATION Last administered on 09:23; Admin Dose 100 MG; Start 09/26/16 at 23:00 Duloxetine HCl (Cymbalta) 20 mg DAILY PO Last administered on 11/11/16 10:15; Admin Dose 20 MG; Start 09/27/16 at 09:00 Zolpidem Tartrate (Ambien) 5 mg QHS PRN PO INSOMNIA Last administered on 20:23; Admin Dose 5 MG; Start 09/26/16 at 23:00 Collagenase (Santyl) 1 applic DAILY TOP Last administered on 11/11/16 10:16; Admin Dose 1 APPLIC; Start 09/27/16 at 09:00 Collagenase (Santyl) 1 applic PRN PRN TOP SOILED OR DISLODGED DRESSING; Start 09/27/16 at 05:00 Lansoprazole (Prevacid) 30 mg DAILY@06 GTB Last administered on 11/11/16 05:15 ; Admin Dose 30 MG; Start 09/28/16 at 06:00 Cromolyn Sodium (Nasalcrom) 1 spray QID NASAL Last administered on 11/11/16 10 :16; Admin Dose 1 SPRAY; Start 09/29/16 at 11:02 Phenol (Cepastat Lozenge) 1 lozenge Q2H PRN MT SORE THROAT Last administered on 11/02/16 01:02; Admin Dose 1 LOZENGE; Start 10/01/16 at 19:00 IV Flush (NS 10 ml) 10 ml PRN PRN IV IV PROTOCOL Last administered on 08:08; Admin Dose 10 ML; Start 10/02/16 at 19:00 Lactobacillus Acidophilus (Florajen3 Capsule) 1 each TID PO Last administered on 11/11/16 10:18; Admin Dose 1 EACH; Start 10/03/16 at 21:00 Hydromorphone HCl (Dilaudid) 0.5 mg Q4H PRN IV PAIN Last administered on 05:22; Admin Dose 0.5 MG; Start 10/06/16 at 18:30 Promethazine HCl/ Codeine (Phenergan/ Codeine) 10 ml BID PRN PO COUGH Last administered on 11/10/16 09:22; Admin Dose 10 ML; Start 10/07/16 at 20:30 Potassium Chloride (Potassium Chloride Pwd/Soln) 20 meq DAILY GTB Last administered on 11/11/16 10:16; Admin Dose 20 MEQ; Start 10/30/16 at 12:00 Sodium Chloride (Nacl) 1 gm BID PO Last administered on 11/11/16 10:15; Admin Dose 1 GM; Start 11/01/16 at 21:00 Alprazolam (Xanax) 0.5 mg Q12H PRN PO ANXIETY Last administered on 11/11/16 04 :24; Admin Dose 0.5 MG; Start 11/08/16 at 20:30 Metronidazole (Flagyl) 500 mg Q8 PO Last administered on 11/11/16 05:15; Admin Dose 500 MG; Start 11/10/16 at 14:00 RALPH LUCAS MD November 11, 2016 11:31
--- NOTE | 2016-11-11 13:27 | PN ---
Date/Time of Note Date/Time of Note DATE: 11/11/16 TIME: 13:26 Assessment/Plan VTE Prophylaxis VTE Prophylaxis Intervention: other Lines/Catheters IV Catheter Type (from [facility]): PICC Line Central line still needed: Yes Urinary Cath still in place: Yes Reason Cath still needed: skin wounds contaminated by urine Assessment/Plan Chief Complaint/Hosp Course - Persistent leukocytosis. Patient complete treatment with antibiotics, currently on Bactrim. - Recurrent urinary tract infection with George catheter. Continue to monitor. - Chronic obstructive pulmonary disease. Continue breathing treatment. - Left lung squamous carcinoma. The patient is not a candidate for chemotherapy per previous assessment. - Multiple decubitus ulcers, status post wound debridement by Dr. Sinclair of sacrococcygeal wound. The patient is currently on wound VAC. Continue to follow up surgical recommendations. - Dysphagia with G-tube placement. Continue feeding through G-tube, strict aspiration precaution. - Hypothyroidism. Continue Synthroid. - Anemia of chronic disease. Continue to monitor hemoglobin and hematocrit. - Hyponatremia, resolved. - Chronic pain. Problems: Subjective 24 Hr Interval Summary Free Text/Dictation Patient is resting comfortably Exam/Review of Systems Vital Signs Vitals Vital Signs Date Time Temp Pulse Resp B/P Pulse Ox O2 Delivery O2 Flow Rate FiO2 11/11/16 12:12 150 11/11/16 11:37 98.2 19 122/69 95 11/11/16 08:02 2.0 11/11/16 00:00 Nasal Cannula Intake and Output 11/10/16 11/10/16 11/11/16 15:00 23:00 07:00 Intake Total 750 ml 650 ml Output Total 700 ml 725 ml Balance 50 ml -75 ml Exam Constitutional: well developed Head: atraumatic, normocephalic Neck: supple Respiratory: diminished breath sounds Cardiovascular: regular rate and rhythm Gastrointestinal: non-tender, soft Extremities: normal pulses Results Result Diagram: 11/11/1614 11/11/1614 Results 24 hrs Laboratory Tests Test 11/11/16 08:14 White Blood Count 18.2 H Red Blood Count 3.59 L Hemoglobin 9.6 L Hematocrit 32.2 L Mean Corpuscular Volume 89.7 Mean Corpuscular Hemoglobin 26.7 L Mean Corpuscular Hemoglobin Concent 29.8 L Red Cell Distribution Width 17.7 H Platelet Count 437 H Mean Platelet Volume 8.9 Neutrophils % 76.0 Lymphocytes % 11.0 L Monocytes % 9.5 Eosinophils % 2.3 Basophils % 0.7 Nucleated Red Blood Cells % 0.0 Neutrophils # 13.9 H Lymphocytes # 2.0 Monocytes # 1.7 H Eosinophils # 0.4 Basophils # 0.1 Nucleated Red Blood Cells # 0.0 Sodium Level 142 Potassium Level 4.5 Chloride Level 108 Carbon Dioxide Level 28 Anion Gap 11 # Blood Urea Nitrogen 30 H Creatinine 0.56 Glucose Level 121 Calcium Level 9.7 Medications Medications Current Medications Ondansetron HCl (Zofran Inj) 4 mg Q6 PRN IV NAUSEA AND/OR VOMITING; Start 09/26 at 22:30 Acetaminophen (Tylenol Tab) 650 mg Q6H PRN PO PAIN AND OR ELEVATED TEMP Last administered on 11/09/16 13:07; Admin Dose 650 MG; Start 09/26/16 at 23:00 Ascorbic Acid (Vitamin C) 500 mg BID PO Last administered on 11/11/16 10:15; Admin Dose 500 MG; Start 09/27/16 at 09:00 Atorvastatin Calcium (Lipitor) 20 mg QHS PO Last administered on 11/10/16 21: 13; Admin Dose 20 MG; Start 09/27/16 at 21:00 Diazepam (Valium) 10 mg DAILY PO Last administered on 11/11/16 10:15; Admin Dose 10 MG; Start 09/27/16 at 09:00 Docusate Sodium (Colace) 100 mg Q12H PRN PO CONSTIPATION Last administered on 09:23; Admin Dose 100 MG; Start 09/26/16 at 23:00 Duloxetine HCl (Cymbalta) 20 mg DAILY PO Last administered on 11/11/16 10:15; Admin Dose 20 MG; Start 09/27/16 at 09:00 Zolpidem Tartrate (Ambien) 5 mg QHS PRN PO INSOMNIA Last administered on 20:23; Admin Dose 5 MG; Start 09/26/16 at 23:00 Collagenase (Santyl) 1 applic DAILY TOP Last administered on 11/11/16 10:16; Admin Dose 1 APPLIC; Start 09/27/16 at 09:00 Collagenase (Santyl) 1 applic PRN PRN TOP SOILED OR DISLODGED DRESSING; Start 09/27/16 at 05:00 Lansoprazole (Prevacid) 30 mg DAILY@06 GTB Last administered on 11/11/16 05:15 ; Admin Dose 30 MG; Start 09/28/16 at 06:00 Cromolyn Sodium (Nasalcrom) 1 spray QID NASAL Last administered on 11/11/16 10 :16; Admin Dose 1 SPRAY; Start 09/29/16 at 11:02 Phenol (Cepastat Lozenge) 1 lozenge Q2H PRN MT SORE THROAT Last administered on 11/02/16 01:02; Admin Dose 1 LOZENGE; Start 10/01/16 at 19:00 IV Flush (NS 10 ml) 10 ml PRN PRN IV IV PROTOCOL Last administered on 08:08; Admin Dose 10 ML; Start 10/02/16 at 19:00 Lactobacillus Acidophilus (Florajen3 Capsule) 1 each TID PO Last administered on 11/11/16 10:18; Admin Dose 1 EACH; Start 10/03/16 at 21:00 Hydromorphone HCl (Dilaudid) 0.5 mg Q4H PRN IV PAIN Last administered on 05:22; Admin Dose 0.5 MG; Start 10/06/16 at 18:30 Promethazine HCl/ Codeine (Phenergan/ Codeine) 10 ml BID PRN PO COUGH Last administered on 11/10/16 09:22; Admin Dose 10 ML; Start 10/07/16 at 20:30 Potassium Chloride (Potassium Chloride Pwd/Soln) 20 meq DAILY GTB Last administered on 11/11/16 10:16; Admin Dose 20 MEQ; Start 10/30/16 at 12:00 Sodium Chloride (Nacl) 1 gm BID PO Last administered on 11/11/16 10:15; Admin Dose 1 GM; Start 11/01/16 at 21:00 Alprazolam (Xanax) 0.5 mg Q12H PRN PO ANXIETY Last administered on 11/11/16 04 :24; Admin Dose 0.5 MG; Start 11/08/16 at 20:30 Metronidazole (Flagyl) 500 mg Q8 PO Last administered on 11/11/16 05:15; Admin Dose 500 MG; Start 11/10/16 at 14:00 MICHAEL HOROWITZ November 11, 2016 13:27
--- NOTE | 2016-11-11 19:56 | CONS ---
Date/Time of Note Date/Time of Note DATE: 11/11/16 TIME: 19:52 Assessment/Plan Assessment/Plan Chief Complaint/Hosp Course ID PROGRESS NOTE ABX: FLAGYL BACTRIM s/p Amikacin + Zyvox + Flagyl 24H INTERVAL SUMMARY * Lethargic, cachectic, NAD, no fevers * hx of dementia w/agitative features, chronic debility PHYSICAL EXAMINATION: GENERAL: This is a chronically ill-appearing, frail 66 yo F HEENT: Unremarkable -- NECK: Supple, trachea midline. CHEST: Rise symmetrical without dyspnea ABDOMEN: Refuses exam EXTREMITIES: Moves all extremities, Without cyanosis. ID ASSESSMENT: 66 yo F w/PMHx Dementia, CVA(chronic left thalamic lacunar infarction), Tobacco/ COPD-Emphysema/Lung Cancer re-admit with: 1. s /p SIRS => RESOLVED * Afebrile * Chronic mild tachycardia - albuterol * Chronic elevated WBC 2. s/p Recurrent UTI = RESOLVED * (+)ACBA * s/p Proteus mirabilis and Klebsiella pneumoniae 3. Urinary retention with chronic George=>Probable neurogenic bladder 5. Status post acute respiratory failure secondary to chronic obstructive pulmonary disease exacerbation. * O2 dependent via NC, chronic recurrent cough, CXR w/persistent lung mass 6. Chronic debility w/Cachexia. 7. Multiple decubitus with a history of debridement => Sacrococcygeal ulcer s /p exc boris 10/27. 8. H/O DJD spine -> Hx of lumbar spinal fusion 9 .H/O Hypertension w/HTN heart disease mild-mod cLVH on ECHO w/diastolic dysfunction STG I 10. Right hand/wrist pain => CT showed triscaphe arthritis -- Probable pseudogout best treated w/NSAIDS 11. Hx of recurrent C.Diff colitis (+) MRSA Nares screen ->Bactroban INVASIVES: PICC, FC, Peg ALLERGY: PENICILLIN. CURRENT ABX: ABX: FLAGYL s/p BACTRIM s/p Amikacin + Zyvox + Flagyl ID PLAN: * Continue Flagyl * Continue wound care * ASP precautions . Problems: Consultation Date/Type/Reason Admit Date/Time Sep 26, 2016 at 20:07 Type of Consultation: ID Referring Provider: DRE LOBATO MD Exam/Review of Systems Vital Signs Vitals Vital Signs Date Time Temp Pulse Resp B/P Pulse Ox O2 Delivery O2 Flow Rate FiO2 11/11/16 16:16 151 11/11/16 15:51 97.9 19 106/69 94 11/11/16 08:10 Nasal Cannula 2.0 Intake and Output 11/10/16 11/10/16 11/11/16 15:00 23:00 07:00 Intake Total 750 ml 650 ml Output Total 700 ml 725 ml Balance 50 ml -75 ml Results Result Diagram: 11/11/16 0814 11/11/16 0814 Results 24 hrs Laboratory Tests Test 11/11/16 08:14 White Blood Count 18.2 H Red Blood Count 3.59 L Hemoglobin 9.6 L Hematocrit 32.2 L Mean Corpuscular Volume 89.7 Mean Corpuscular Hemoglobin 26.7 L Mean Corpuscular Hemoglobin Concent 29.8 L Red Cell Distribution Width 17.7 H Platelet Count 437 H Mean Platelet Volume 8.9 Neutrophils % 76.0 Lymphocytes % 11.0 L Monocytes % 9.5 Eosinophils % 2.3 Basophils % 0.7 Nucleated Red Blood Cells % 0.0 Neutrophils # 13.9 H Lymphocytes # 2.0 Monocytes # 1.7 H Eosinophils # 0.4 Basophils # 0.1 Nucleated Red Blood Cells # 0.0 Sodium Level 142 Potassium Level 4.5 Chloride Level 108 Carbon Dioxide Level 28 Anion Gap 11 # Blood Urea Nitrogen 30 H Creatinine 0.56 Glucose Level 121 Calcium Level 9.7 Medications Medications Current Medications Ondansetron HCl (Zofran Inj) 4 mg Q6 PRN IV NAUSEA AND/OR VOMITING; Start 09/26 at 22:30 Acetaminophen (Tylenol Tab) 650 mg Q6H PRN PO PAIN AND OR ELEVATED TEMP Last administered on 11/09/16 13:07; Admin Dose 650 MG; Start 09/26/16 at 23:00 Ascorbic Acid (Vitamin C) 500 mg BID PO Last administered on 11/11/16 10:15; Admin Dose 500 MG; Start 09/27/16 at 09:00 Atorvastatin Calcium (Lipitor) 20 mg QHS PO Last administered on 11/10/16 21: 13; Admin Dose 20 MG; Start 09/27/16 at 21:00 Diazepam (Valium) 10 mg DAILY PO Last administered on 11/11/16 10:15; Admin Dose 10 MG; Start 09/27/16 at 09:00 Docusate Sodium (Colace) 100 mg Q12H PRN PO CONSTIPATION Last administered on 09:23; Admin Dose 100 MG; Start 09/26/16 at 23:00 Duloxetine HCl (Cymbalta) 20 mg DAILY PO Last administered on 11/11/16 10:15; Admin Dose 20 MG; Start 09/27/16 at 09:00 Zolpidem Tartrate (Ambien) 5 mg QHS PRN PO INSOMNIA Last administered on 20:23; Admin Dose 5 MG; Start 09/26/16 at 23:00 Collagenase (Santyl) 1 applic DAILY TOP Last administered on 11/11/16 10:16; Admin Dose 1 APPLIC; Start 09/27/16 at 09:00 Collagenase (Santyl) 1 applic PRN PRN TOP SOILED OR DISLODGED DRESSING; Start 09/27/16 at 05:00 Lansoprazole (Prevacid) 30 mg DAILY@06 GTB Last administered on 11/11/16 05:15 ; Admin Dose 30 MG; Start 09/28/16 at 06:00 Cromolyn Sodium (Nasalcrom) 1 spray QID NASAL Last administered on 11/11/16 18 :25; Admin Dose 1 SPRAY; Start 09/29/16 at 11:02 Phenol (Cepastat Lozenge) 1 lozenge Q2H PRN MT SORE THROAT Last administered on 11/02/16 01:02; Admin Dose 1 LOZENGE; Start 10/01/16 at 19:00 IV Flush (NS 10 ml) 10 ml PRN PRN IV IV PROTOCOL Last administered on 08:08; Admin Dose 10 ML; Start 10/02/16 at 19:00 Lactobacillus Acidophilus (Florajen3 Capsule) 1 each TID PO Last administered on 11/11/16 13:28; Admin Dose 1 EACH; Start 10/03/16 at 21:00 Hydromorphone HCl (Dilaudid) 0.5 mg Q4H PRN IV PAIN Last administered on 13:30; Admin Dose 0.5 MG; Start 10/06/16 at 18:30 Promethazine HCl/ Codeine (Phenergan/ Codeine) 10 ml BID PRN PO COUGH Last administered on 11/10/16 09:22; Admin Dose 10 ML; Start 10/07/16 at 20:30 Potassium Chloride (Potassium Chloride Pwd/Soln) 20 meq DAILY GTB Last administered on 11/11/16 10:16; Admin Dose 20 MEQ; Start 10/30/16 at 12:00 Sodium Chloride (Nacl) 1 gm BID PO Last administered on 11/11/16 10:15; Admin Dose 1 GM; Start 11/01/16 at 21:00 Alprazolam (Xanax) 0.5 mg Q12H PRN PO ANXIETY Last administered on 11/11/16 18 :29; Admin Dose 0.5 MG; Start 11/08/16 at 20:30 Metronidazole (Flagyl) 500 mg Q8 PO Last administered on 11/11/16 13:28; Admin Dose 500 MG; Start 11/10/16 at 14:00 ALMA ROSARIO NP November 11, 2016 19:56
[2016-11-11] MEDS: ALBUTEROL/IPRATROPIUM (NEB) 3 ML AMP NEB PRN (20:07)
--- NOTE | 2016-11-11 20:20 | CONS ---
Date/Time of Note Date/Time of Note DATE: 11/11/16 TIME: 20:19 Assessment/Plan Assessment/Plan Additional Assessment/Plan 1. Hyponatremia, multifactorial - pt likey has Component of SAIDH causing hypoantreia, due to acute on chronic pain 2. Status post acute kidney injury on chronic kidney disease due to systemic inflammatory response syndrome. now improved 3. Sepsis, 4. History of recurrent polymicrobial urinary tract infections. 5. History of dementia. 6. History of previous cerebrovascular accident. 7. History of chronic obstructive pulmonary disease, recently had acute respiratory failure secondary to chronic obstructive pulmonary disease exacerbation. 8. History of urinary retention with a chronic George catheter in place. 9. Chronic debility with cachexia. 10. Multiple decubitus ulcers with debris. Sacrococcygeal ulcer s/p exc boris . 11. History of degenerative joint disease of spine. 12. History of hypertension and hypertensive heart disease with mild to moderate concentric left ventricular hypertrophy and echocardiogram with diastolic dysfunction stage I.EF normal PLAN: SAIDH causing hypoantreia, s/p one dose of tolvaptan 15 mg on 10/24/16- Na normal today on Na Chloride tablet 1 gram PO BID , pt is also on bactrim, will continue to monitor her K and Cr monitor electrolytes will follow up Consultation Date/Type/Reason Admit Date/Time Sep 26, 2016 at 20:07 Type of Consultation: ID Referring Provider: DRE LOBATO MD Exam/Review of Systems Vital Signs Vitals Vital Signs Date Time Temp Pulse Resp B/P Pulse Ox O2 Delivery O2 Flow Rate FiO2 11/11/16 16:16 151 11/11/16 15:51 97.9 19 106/69 94 11/11/16 08:10 Nasal Cannula 2.0 Intake and Output 11/10/16 11/10/16 11/11/16 15:00 23:00 07:00 Intake Total 750 ml 650 ml Output Total 700 ml 725 ml Balance 50 ml -75 ml Exam GENERAL: This is a cachectic elderly woman who is lying comfortably in bed. HEENT: Head atraumatic, normocephalic. Sclerae anicteric. Buccal mucosa dry. NECK: Supple, trachea midline. CHEST: Rise symmetrical. Breath sounds diminished to bases. HEART: S1, S2. ABDOMEN: Soft. Bowel sounds present. EXTREMITIES: Wasted without cyanosis. Results Result Diagram: 11/11/16 0814 11/11/16 0814 Results 24 hrs Laboratory Tests Test 11/11/16 08:14 White Blood Count 18.2 H Red Blood Count 3.59 L Hemoglobin 9.6 L Hematocrit 32.2 L Mean Corpuscular Volume 89.7 Mean Corpuscular Hemoglobin 26.7 L Mean Corpuscular Hemoglobin Concent 29.8 L Red Cell Distribution Width 17.7 H Platelet Count 437 H Mean Platelet Volume 8.9 Neutrophils % 76.0 Lymphocytes % 11.0 L Monocytes % 9.5 Eosinophils % 2.3 Basophils % 0.7 Nucleated Red Blood Cells % 0.0 Neutrophils # 13.9 H Lymphocytes # 2.0 Monocytes # 1.7 H Eosinophils # 0.4 Basophils # 0.1 Nucleated Red Blood Cells # 0.0 Sodium Level 142 Potassium Level 4.5 Chloride Level 108 Carbon Dioxide Level 28 Anion Gap 11 # Blood Urea Nitrogen 30 H Creatinine 0.56 Glucose Level 121 Calcium Level 9.7 Medications Medications Current Medications Ondansetron HCl (Zofran Inj) 4 mg Q6 PRN IV NAUSEA AND/OR VOMITING; Start 09/26 at 22:30 Acetaminophen (Tylenol Tab) 650 mg Q6H PRN PO PAIN AND OR ELEVATED TEMP Last administered on 11/09/16 13:07; Admin Dose 650 MG; Start 09/26/16 at 23:00 Ascorbic Acid (Vitamin C) 500 mg BID PO Last administered on 11/11/16 10:15; Admin Dose 500 MG; Start 09/27/16 at 09:00 Atorvastatin Calcium (Lipitor) 20 mg QHS PO Last administered on 11/10/16 21: 13; Admin Dose 20 MG; Start 09/27/16 at 21:00 Diazepam (Valium) 10 mg DAILY PO Last administered on 11/11/16 10:15; Admin Dose 10 MG; Start 09/27/16 at 09:00 Docusate Sodium (Colace) 100 mg Q12H PRN PO CONSTIPATION Last administered on 09:23; Admin Dose 100 MG; Start 09/26/16 at 23:00 Duloxetine HCl (Cymbalta) 20 mg DAILY PO Last administered on 11/11/16 10:15; Admin Dose 20 MG; Start 09/27/16 at 09:00 Zolpidem Tartrate (Ambien) 5 mg QHS PRN PO INSOMNIA Last administered on 20:23; Admin Dose 5 MG; Start 09/26/16 at 23:00 Collagenase (Santyl) 1 applic DAILY TOP Last administered on 11/11/16 10:16; Admin Dose 1 APPLIC; Start 09/27/16 at 09:00 Collagenase (Santyl) 1 applic PRN PRN TOP SOILED OR DISLODGED DRESSING; Start 09/27/16 at 05:00 Lansoprazole (Prevacid) 30 mg DAILY@06 GTB Last administered on 11/11/16 05:15 ; Admin Dose 30 MG; Start 09/28/16 at 06:00 Cromolyn Sodium (Nasalcrom) 1 spray QID NASAL Last administered on 11/11/16 18 :25; Admin Dose 1 SPRAY; Start 09/29/16 at 11:02 Phenol (Cepastat Lozenge) 1 lozenge Q2H PRN MT SORE THROAT Last administered on 11/02/16 01:02; Admin Dose 1 LOZENGE; Start 10/01/16 at 19:00 IV Flush (NS 10 ml) 10 ml PRN PRN IV IV PROTOCOL Last administered on 08:08; Admin Dose 10 ML; Start 10/02/16 at 19:00 Lactobacillus Acidophilus (Florajen3 Capsule) 1 each TID PO Last administered on 11/11/16 13:28; Admin Dose 1 EACH; Start 10/03/16 at 21:00 Hydromorphone HCl (Dilaudid) 0.5 mg Q4H PRN IV PAIN Last administered on 19:49; Admin Dose 0.5 MG; Start 10/06/16 at 18:30 Promethazine HCl/ Codeine (Phenergan/ Codeine) 10 ml BID PRN PO COUGH Last administered on 11/10/16 09:22; Admin Dose 10 ML; Start 10/07/16 at 20:30 Potassium Chloride (Potassium Chloride Pwd/Soln) 20 meq DAILY GTB Last administered on 11/11/16 10:16; Admin Dose 20 MEQ; Start 10/30/16 at 12:00 Sodium Chloride (Nacl) 1 gm BID PO Last administered on 11/11/16 10:15; Admin Dose 1 GM; Start 11/01/16 at 21:00 Alprazolam (Xanax) 0.5 mg Q12H PRN PO ANXIETY Last administered on 11/11/16 18 :29; Admin Dose 0.5 MG; Start 11/08/16 at 20:30 Metronidazole (Flagyl) 500 mg Q8 PO Last administered on 11/11/16 13:28; Admin Dose 500 MG; Start 11/10/16 at 14:00 DIONNE SAUCEDA MD November 11, 2016 20:20
[2016-11-11] MEDS: ATORVASTATIN 20 MG TAB PO SCH (21:23)
[2016-11-12] VITALS (85 sets, daily range): BP systolic 72–122; BP diastolic 45–90; PULSE 95–153; RESP 19–44
--- NOTE | 2016-11-12 00:05 | PN ---
Date/Time of Note Date/Time of Note DATE: 11/11/16 TIME: 12:03 Assessment/Plan Lines/Catheters IV Catheter Type (from Nrs): PICC Line George in Place (from Nrs): Yes Assessment/Plan Chief Complaint/Hosp Course 1. Multiple decubitus ulcers with debris. Sacrococcygeal ulcer s/p exc boris . -Offload -Optimize nutrition -Vitamin C -Local care 2. UTI s/p abx 3. 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 Acute on chronic diastolic heart failure -Judicious fluid management -Cardiac optimization 5. Hypertension -Diet and medication control 6. Chronic urinary retention with George 7. Depression. -Medical management 8. Hypothyroidism by history. -Synthroid 9. Anemia of chronic disease in addition to iron deficiency anemia. -Continue iron supplements. -Transfusion when necessary 10. Chronic pain syndrome. Continue pain management. Thank you Late entry 11/11 Problems: Subjective 24 Hr Interval Summary Leukocytosis. Tachyarrhythmia. No fevers, chills, nausea, vomiting, or abdominal pain. No abnormal vaginal discharge. No bloating. No cough, sz, bloating. No robles/dizzy/visual or neuro changes. Exam/Review of Systems Vital Signs Vitals Vital Signs Date Time Temp Pulse Resp B/P Pulse Ox O2 Delivery O2 Flow Rate FiO2 11/11/16 22:08 Nasal Cannula 2.0 11/11/16 20:21 95 11/11/16 20:08 144 44 11/11/16 20:00 98.9 101/60 Intake and Output 11/11/16 11/11/16 11/12/16 15:00 23:00 07:00 Intake Total 750 ml Output Total 1000 ml Balance -250 ml Exam Free Text/Dictation GENERAL: Elderly, cachectic, no acute distress. HEENT: Head is atraumatic, normocephalic. Pupils equal, round, reactive to light and accommodation. Oral mucosa is pink and moist. NECK: Supple, no cervical lymphadenopathy LUNGS: Normal respiratory effort CARDIAC: S1 and S2. Tachy, Irregular ABDOMEN: Flat, soft and nondistended. Nontender. No rebound or guarding. SKIN: Multiple decubitus wounds/ulcers buttock sacrum and right lower extremity EXTREMITIES: No edema. Pulses equal bilaterally, 2+. NEUROLOGICAL: Responsive VASCULAR: Refill is less than 2 seconds Results Result Diagram: 11/11/16 0814 11/11/16 0814 ZAK POSEY MD November 12, 2016 00:05
[2016-11-12] MEDS ORDERED: SOD CHLORIDE 0.9% 250 ML IV ONE (00:30)
[2016-11-12] MEDS ORDERED: SOD CHLORIDE 0.9% 500 ML IV ONE (02:30)
[2016-11-12] MEDS ORDERED: NORepinephrine 8MG/250 ML (PMX 250 ML ONE (03:11)
[2016-11-12] MEDS: HYDROmorphONE 1 MG/ML SYG IV PRN ×4 (04:17→21:56)
[2016-11-12] MEDS: DEXTROSE 5%-0.45% NACL 1,000 ML IV SCH ×2 (04:20→17:23)
[2016-11-12] MEDS ORDERED: NORepinephrine 8MG/250 ML (PMX 250 ML IV SCH (04:30)
[2016-11-12] MEDS: LANSOPRAZOLE 30 MG CAP GTB SCH (05:29)
[2016-11-12] MEDS: metroNIDAZOLE 500 MG TAB PO SCH ×3 (05:29→21:48)
[2016-11-12 06:05] LABS: ADD SCAN DIFF NO
[2016-11-12] MEDS: ALPRAZOLAM 0.25 MG TAB PO PRN ×2 (06:14→18:55)
[2016-11-12] MEDS: LEVOTHYROXINE 125 MCG TAB PO SCH (06:14)
[2016-11-12 06:29] LABS: POTASSIUM 4.3 mmol/L (3.5-5.1)
[2016-11-12 06:31] LABS: CREATININE 0.77 mg/dl (0.44-1.00)
[2016-11-12 06:32] LABS: CALCIUM 9.3 mg/dl (8.4-10.2)
[2016-11-12 06:40] LABS: ABNORMAL IP MESSAGE 1; BASOPHIL # 0.1 10^3/ul (0.0-0.1); BASOPHILS % 0.7 % (0.0-2.0); EOSINOPHILS # 0.3 10^3/ul (0.0-0.5); EOSINOPHILS % 1.5 % (0.0-7.0); LYMPHOCYTES # 2.1 10^3/ul (0.8-2.9); LYMPHOCYTES % 10.6 % (15.0-51.0); MEAN CORPUSCULAR HEMOGLOBIN 26.3 pg (29.0-33.0); MEAN CORPUSCULAR VOLUME 90.6 fl (82.0-101.0); MEAN PLATELET VOLUME 9.7 fl (7.4-10.4); MONOCYTE # 1.9 10^3/ul (0.3-0.9); MONOCYTES % 9.5 % (0.0-11.0); NEUTROPHIL # 15.2 10^3/ul (1.6-7.5); NEUTROPHILS % 76.8 % (39.0-77.0); PLATELET COUNT 450 10^3/UL (140-415); RED BLOOD COUNT 3.42 10^6/ul (4.20-5.40); RED CELL DISTRIBUTION WIDTH 18.1 % (11.5-14.5); WHITE BLOOD COUNT 19.8 10^3/ul (4.8-10.8)
[2016-11-12] MEDS: POTASSIUM CHLORIDE 20 MEQ POWDER FOR ORAL SOLN GTB SCH (08:57)
[2016-11-12] MEDS: DIAZEPAM 5 MG TAB PO SCH (08:57)
[2016-11-12] MEDS: CROMOLYN 4% 26ML NAS INH NASAL SCH ×4 (08:57→21:48)
[2016-11-12] MEDS: ASCORBIC ACID 500 MG TAB PO SCH ×2 (08:57→21:48)
[2016-11-12] MEDS: COLLAGENASE 30 GM TUBE TOP SCH (09:00)
[2016-11-12] MEDS: L ACIDOPHIL/B LACTIS/B LONGUM CAPSULE PO SCH ×2 (09:50→13:24)
[2016-11-12] MEDS: SODIUM CHLORIDE 1 GM TAB PO SCH (09:50)
[2016-11-12] MEDS: DULOXETINE 20 MG CAP DR PO SCH (09:50)
--- NOTE | 2016-11-12 10:31 | PN ---
Date/Time of Note Date/Time of Note DATE: 11/12/16 TIME: 10:29 Assessment/Plan VTE Prophylaxis VTE Prophylaxis Intervention: SCD's Lines/Catheters IV [facility] PICC Line Central line still needed: No Urinary Cath still in place: Yes Reason Cath still needed: urinary retention Assessment/Plan Chief Complaint/Hosp Course Patient is a 66-year-old female with anemia and cancer presents for anemia and leukocytosis. The patient was sent by Dr. Dozier from [facility] for admission. The patient said that she was "not feeling well all weekend". She was brought in by ambulance. She said that she had a fever but did not check her temperature. She has had cough and urinary symptoms as well as sore throat. The patient had peristent hypotension but no sycnope and remains stabe with no chest pain and no overt CHF Problems: Assessment/Plan Sepsis Intermittent hypotension Diastolic congestive heart failure, compensated Pulmonary hypertension Preserved ejection fraction Tricuspid valve regurgitation Lung cancer -Now on pressor suppor due to hypotension - frequent episodes of sinus tachycardia. Etiology possibly secondary to sepsis , pain, anxiety versus volume status. Would continue to hold any antihypertensive medications. Fluids and electrolyte management as per our nephrology colleagues. Subjective 24 Hr Interval Summary Free Text/Dictation The patient s/p hypotension and now on pressor support Exam/Review of Systems Vital Signs Vitals Vital Signs Date Time Temp Pulse Resp B/P Pulse Ox O2 Delivery O2 Flow Rate FiO2 11/12/16 07:30 103 32 95/70 100 11/12/16 07:00 Nasal Cannula 6.0 11/12/16 03:30 97.6 Intake and Output 11/11/16 11/11/16 11/12/16 15:00 23:00 07:00 Intake Total 750 ml 312.0 ml Output Total 1000 ml 200 ml Balance -250 ml 112.0 ml Results Result Diagram: 11/12/16 0540 11/12/16 0540 Results 24 hrs Laboratory Tests Test 11/11/16 23:26 11/12/16 02:43 11/12/16 05:40 Bedside Glucose 134 125 White Blood Count 19.8 H Red Blood Count 3.42 L Hemoglobin 9.0 L Hematocrit 31.0 L Mean Corpuscular Volume 90.6 Mean Corpuscular Hemoglobin 26.3 L Mean Corpuscular Hemoglobin Concent 29.0 L Red Cell Distribution Width 18.1 H Platelet Count 450 H Mean Platelet Volume 9.7 Neutrophils % 76.8 Lymphocytes % 10.6 L Monocytes % 9.5 Eosinophils % 1.5 Basophils % 0.7 Nucleated Red Blood Cells % 0.0 Neutrophils # 15.2 H Lymphocytes # 2.1 Monocytes # 1.9 H Eosinophils # 0.3 Basophils # 0.1 Nucleated Red Blood Cells # 0.0 Sodium Level 146 H Potassium Level 4.3 Chloride Level 116 H Carbon Dioxide Level 28 Anion Gap 6 L Blood Urea Nitrogen 37 H Creatinine 0.77 Glucose Level 172 Lactic Acid Level 0.9 Calcium Level 9.3 Medications Medications Current Medications Ondansetron HCl (Zofran Inj) 4 mg Q6 PRN IV NAUSEA AND/OR VOMITING; Start 09/26 at 22:30 Acetaminophen (Tylenol Tab) 650 mg Q6H PRN PO PAIN AND OR ELEVATED TEMP Last administered on 11/09/16 13:07; Admin Dose 650 MG; Start 09/26/16 at 23:00 Ascorbic Acid (Vitamin C) 500 mg BID PO Last administered on 11/12/16 08:57; Admin Dose 500 MG; Start 09/27/16 at 09:00 Atorvastatin Calcium (Lipitor) 20 mg QHS PO Last administered on 11/11/16 21: 23; Admin Dose 20 MG; Start 09/27/16 at 21:00 Diazepam (Valium) 10 mg DAILY PO Last administered on 11/12/16 08:57; Admin Dose 10 MG; Start 09/27/16 at 09:00 Docusate Sodium (Colace) 100 mg Q12H PRN PO CONSTIPATION Last administered on 09:23; Admin Dose 100 MG; Start 09/26/16 at 23:00 Duloxetine HCl (Cymbalta) 20 mg DAILY PO Last administered on 11/12/16 09:50; Admin Dose 20 MG; Start 09/27/16 at 09:00 Zolpidem Tartrate (Ambien) 5 mg QHS PRN PO INSOMNIA Last administered on 20:23; Admin Dose 5 MG; Start 09/26/16 at 23:00 Collagenase (Santyl) 1 applic DAILY TOP Last administered on 11/11/16 10:16; Admin Dose 1 APPLIC; Start 09/27/16 at 09:00 Collagenase (Santyl) 1 applic PRN PRN TOP SOILED OR DISLODGED DRESSING; Start 09/27/16 at 05:00 Lansoprazole (Prevacid) 30 mg DAILY@06 GTB Last administered on 11/12/16 05:29 ; Admin Dose 30 MG; Start 09/28/16 at 06:00 Cromolyn Sodium (Nasalcrom) 1 spray QID NASAL Last administered on 11/12/16 08 :57; Admin Dose 1 SPRAY; Start 09/29/16 at 11:02 Phenol (Cepastat Lozenge) 1 lozenge Q2H PRN MT SORE THROAT Last administered on 11/02/16 01:02; Admin Dose 1 LOZENGE; Start 10/01/16 at 19:00 IV Flush (NS 10 ml) 10 ml PRN PRN IV IV PROTOCOL Last administered on 08:08; Admin Dose 10 ML; Start 10/02/16 at 19:00 Lactobacillus Acidophilus (Florajen3 Capsule) 1 each TID PO Last administered on 11/12/16 09:50; Admin Dose 1 EACH; Start 10/03/16 at 21:00 Hydromorphone HCl (Dilaudid) 0.5 mg Q4H PRN IV PAIN Last administered on 08:55; Admin Dose 0.5 MG; Start 10/06/16 at 18:30 Promethazine HCl/ Codeine (Phenergan/ Codeine) 10 ml BID PRN PO COUGH Last administered on 11/10/16 09:22; Admin Dose 10 ML; Start 10/07/16 at 20:30 Potassium Chloride (Potassium Chloride Pwd/Soln) 20 meq DAILY GTB Last administered on 11/12/16 08:57; Admin Dose 20 MEQ; Start 10/30/16 at 12:00 Sodium Chloride (Nacl) 1 gm BID PO Last administered on 11/12/16 09:50; Admin Dose 1 GM; Start 11/01/16 at 21:00 Alprazolam (Xanax) 0.5 mg Q12H PRN PO ANXIETY Last administered on 11/12/16 06 :14; Admin Dose 0.5 MG; Start 11/08/16 at 20:30 Metronidazole 500 mg 500 mg Q8 PO Last administered on 11/12/16 05:29; Admin Dose 500 MG; Start 11/10/16 at 14:00 Dextrose/Sodium Chloride 1,000 ml @ 75 mls/hr [id number] IV Last administered on 11/12/16 04:20; Admin Dose 75 MLS/HR; Start 11/12/16 at 04:30 Norepinephrine/ Dextrose (Levophed/D5W) 500 ml @ 1.87 mls/hr TITRATE IV Last administered on 11/12/16 04:39; Admin Dose 11.25 MLS/HR; Start 11/12/16 at 04: 30 RALPH LUCAS MD November 12, 2016 10:31
[2016-11-12] MEDS: PROMETHAZINE/CODEINE 5ML CUP PO PRN (11:10)
--- NOTE | 2016-11-12 11:57 | PN ---
Date/Time of Note Date/Time of Note DATE: 11/12/16 TIME: 11:55 Assessment/Plan VTE Prophylaxis VTE Prophylaxis Intervention: other Lines/Catheters IV Catheter Type (from [facility] PICC Line Central line still needed: Yes Urinary Cath still in place: Yes Reason Cath still needed: skin wounds contaminated by urine Assessment/Plan Chief Complaint/Hosp Course - Persistent leukocytosis. Patient complete treatment with antibiotics, currently on Bactrim. - Recurrent urinary tract infection with George catheter. Continue to monitor. - Chronic obstructive pulmonary disease. Continue breathing treatment. - Left lung squamous carcinoma. The patient is not a candidate for chemotherapy per previous assessment. - Multiple decubitus ulcers, status post wound debridement by Dr. Sinclair of sacrococcygeal wound. The patient is currently on wound VAC. Continue to follow up surgical recommendations. - Dysphagia with G-tube placement. Continue feeding through G-tube, strict aspiration precaution. - Hypothyroidism. Continue Synthroid. - Anemia of chronic disease. Continue to monitor hemoglobin and hematocrit. - Hyponatremia, resolved. - Chronic pain. Problems: Subjective 24 Hr Interval Summary Free Text/Dictation Patient resting, no responsive to voice. Yesterday, patient became hypotensive and so have to be moved to the ICU for vasopressors Exam/Review of Systems Vital Signs Vitals Vital Signs Date Time Temp Pulse Resp B/P Pulse Ox O2 Delivery O2 Flow Rate FiO2 11/12/16 08:00 106 11/12/16 07:30 32 95/70 100 11/12/16 07:00 Nasal Cannula 6.0 11/12/16 03:30 97.6 Intake and Output 11/11/16 11/11/16 11/12/16 15:00 23:00 07:00 Intake Total 750 ml 312.0 ml Output Total 1000 ml 200 ml Balance -250 ml 112.0 ml Exam Constitutional: well developed Head: atraumatic, normocephalic Neck: supple Respiratory: diminished breath sounds Cardiovascular: regular rate and rhythm Gastrointestinal: non-tender, soft Extremities: normal pulses Results Result Diagram: 11/12/16 0540 11/12/16 0540 Results 24 hrs Laboratory Tests Test 11/11/16 23:26 11/12/16 02:43 11/12/16 05:40 Bedside Glucose 134 125 White Blood Count 19.8 H Red Blood Count 3.42 L Hemoglobin 9.0 L Hematocrit 31.0 L Mean Corpuscular Volume 90.6 Mean Corpuscular Hemoglobin 26.3 L Mean Corpuscular Hemoglobin Concent 29.0 L Red Cell Distribution Width 18.1 H Platelet Count 450 H Mean Platelet Volume 9.7 Neutrophils % 76.8 Lymphocytes % 10.6 L Monocytes % 9.5 Eosinophils % 1.5 Basophils % 0.7 Nucleated Red Blood Cells % 0.0 Neutrophils # 15.2 H Lymphocytes # 2.1 Monocytes # 1.9 H Eosinophils # 0.3 Basophils # 0.1 Nucleated Red Blood Cells # 0.0 Sodium Level 146 H Potassium Level 4.3 Chloride Level 116 H Carbon Dioxide Level 28 Anion Gap 6 L Blood Urea Nitrogen 37 H Creatinine 0.77 Glucose Level 172 Lactic Acid Level 0.9 Calcium Level 9.3 Medications Medications Current Medications Ondansetron HCl (Zofran Inj) 4 mg Q6 PRN IV NAUSEA AND/OR VOMITING; Start 09/26 at 22:30 Acetaminophen (Tylenol Tab) 650 mg Q6H PRN PO PAIN AND OR ELEVATED TEMP Last administered on 11/09/16 13:07; Admin Dose 650 MG; Start 09/26/16 at 23:00 Ascorbic Acid (Vitamin C) 500 mg BID PO Last administered on 11/12/16 08:57; Admin Dose 500 MG; Start 09/27/16 at 09:00 Atorvastatin Calcium (Lipitor) 20 mg QHS PO Last administered on 11/11/16 21: 23; Admin Dose 20 MG; Start 09/27/16 at 21:00 Diazepam (Valium) 10 mg DAILY PO Last administered on 11/12/16 08:57; Admin Dose 10 MG; Start 09/27/16 at 09:00 Docusate Sodium (Colace) 100 mg Q12H PRN PO CONSTIPATION Last administered on 09:23; Admin Dose 100 MG; Start 09/26/16 at 23:00 Duloxetine HCl (Cymbalta) 20 mg DAILY PO Last administered on 11/12/16 09:50; Admin Dose 20 MG; Start 09/27/16 at 09:00 Zolpidem Tartrate (Ambien) 5 mg QHS PRN PO INSOMNIA Last administered on 20:23; Admin Dose 5 MG; Start 09/26/16 at 23:00 Collagenase (Santyl) 1 applic DAILY TOP Last administered on 11/11/16 10:16; Admin Dose 1 APPLIC; Start 09/27/16 at 09:00 Collagenase (Santyl) 1 applic PRN PRN TOP SOILED OR DISLODGED DRESSING; Start 09/27/16 at 05:00 Lansoprazole (Prevacid) 30 mg DAILY@06 GTB Last administered on 11/12/16 05:29 ; Admin Dose 30 MG; Start 09/28/16 at 06:00 Cromolyn Sodium (Nasalcrom) 1 spray QID NASAL Last administered on 11/12/16 08 :57; Admin Dose 1 SPRAY; Start 09/29/16 at 11:02 Phenol (Cepastat Lozenge) 1 lozenge Q2H PRN MT SORE THROAT Last administered on 11/02/16 01:02; Admin Dose 1 LOZENGE; Start 10/01/16 at 19:00 IV Flush (NS 10 ml) 10 ml PRN PRN IV IV PROTOCOL Last administered on 08:08; Admin Dose 10 ML; Start 10/02/16 at 19:00 Lactobacillus Acidophilus (Florajen3 Capsule) 1 each TID PO Last administered on 11/12/16 09:50; Admin Dose 1 EACH; Start 10/03/16 at 21:00 Hydromorphone HCl (Dilaudid) 0.5 mg Q4H PRN IV PAIN Last administered on 08:55; Admin Dose 0.5 MG; Start 10/06/16 at 18:30 Promethazine HCl/ Codeine (Phenergan/ Codeine) 10 ml BID PRN PO COUGH Last administered on 11/12/16 11:10; Admin Dose 10 ML; Start 10/07/16 at 20:30 Potassium Chloride (Potassium Chloride Pwd/Soln) 20 meq DAILY GTB Last administered on 11/12/16 08:57; Admin Dose 20 MEQ; Start 10/30/16 at 12:00 Sodium Chloride (Nacl) 1 gm BID PO Last administered on 11/12/16 09:50; Admin Dose 1 GM; Start 11/01/16 at 21:00 Alprazolam (Xanax) 0.5 mg Q12H PRN PO ANXIETY Last administered on 11/12/16 06 :14; Admin Dose 0.5 MG; Start 11/08/16 at 20:30 Metronidazole 500 mg 500 mg Q8 PO Last administered on 11/12/16 05:29; Admin Dose 500 MG; Start 11/10/16 at 14:00 Dextrose/Sodium Chloride 1,000 ml @ 75 mls/hr [id number] IV Last administered on 11/12/16 04:20; Admin Dose 75 MLS/HR; Start 11/12/16 at 04:30 Norepinephrine/ Dextrose (Levophed/D5W) 500 ml @ 1.87 mls/hr TITRATE IV Last administered on 11/12/16 04:39; Admin Dose 11.25 MLS/HR; Start 11/12/16 at 04: 30 MICHAEL HOROWITZ November 12, 2016 11:57
--- NOTE | 2016-11-12 14:08 | CONS ---
Date/Time of Note Date/Time of Note DATE: 11/12/16 TIME: 14:06 Consult Date/Type/Reason Admit Date/Time Sep 26, 2016 at 20:07 Initial Consult Date 10/19/16 Type of Consultation: ID Ordering Provider: DRE LOBATO MD Objective Vital Signs Date Time Temp Pulse Resp B/P Pulse Ox O2 Delivery O2 Flow Rate FiO2 11/12/16 13:30 139 37 111/86 95 Nasal Cannula 2.0 11/12/16 12:00 99.4 Intake and Output 11/11/16 11/11/16 11/12/16 15:00 23:00 07:00 Intake Total 750 ml 312.0 ml Output Total 1000 ml 200 ml Balance -250 ml 112.0 ml Exam GENERAL: NAD, cachectic elderly female, resting in bed, seems comfortable HEENT: Head atraumatic, normocephalic. Sclerae anicteric. Buccal mucosa dry. NECK: Supple, trachea midline. CHEST: Rise symmetrical. Breath sounds diminished to bases bilaterally HEART: S1, S2. ABDOMEN: Soft. Bowel sounds present. GT intact EXTREMITIES: Wasted without cyanosis. Results/Medications Result Diagram: 11/12/16 0540 11/12/16 0540 Results 24 hrs Laboratory Tests Test 11/11/16 23:26 11/12/16 02:43 11/12/16 05:40 Bedside Glucose 134 125 White Blood Count 19.8 H Red Blood Count 3.42 L Hemoglobin 9.0 L Hematocrit 31.0 L Mean Corpuscular Volume 90.6 Mean Corpuscular Hemoglobin 26.3 L Mean Corpuscular Hemoglobin Concent 29.0 L Red Cell Distribution Width 18.1 H Platelet Count 450 H Mean Platelet Volume 9.7 Neutrophils % 76.8 Lymphocytes % 10.6 L Monocytes % 9.5 Eosinophils % 1.5 Basophils % 0.7 Nucleated Red Blood Cells % 0.0 Neutrophils # 15.2 H Lymphocytes # 2.1 Monocytes # 1.9 H Eosinophils # 0.3 Basophils # 0.1 Nucleated Red Blood Cells # 0.0 Sodium Level 146 H Potassium Level 4.3 Chloride Level 116 H Carbon Dioxide Level 28 Anion Gap 6 L Blood Urea Nitrogen 37 H Creatinine 0.77 Glucose Level 172 Lactic Acid Level 0.9 Calcium Level 9.3 Medications Current Medications Ondansetron HCl (Zofran Inj) 4 mg Q6 PRN IV NAUSEA AND/OR VOMITING; Start 09/26 at 22:30 Acetaminophen (Tylenol Tab) 650 mg Q6H PRN PO PAIN AND OR ELEVATED TEMP Last administered on 11/09/16 13:07; Admin Dose 650 MG; Start 09/26/16 at 23:00 Ascorbic Acid (Vitamin C) 500 mg BID PO Last administered on 11/12/16 08:57; Admin Dose 500 MG; Start 09/27/16 at 09:00 Atorvastatin Calcium (Lipitor) 20 mg QHS PO Last administered on 11/11/16 21: 23; Admin Dose 20 MG; Start 09/27/16 at 21:00 Diazepam (Valium) 10 mg DAILY PO Last administered on 11/12/16 08:57; Admin Dose 10 MG; Start 09/27/16 at 09:00 Docusate Sodium (Colace) 100 mg Q12H PRN PO CONSTIPATION Last administered on 09:23; Admin Dose 100 MG; Start 09/26/16 at 23:00 Duloxetine HCl (Cymbalta) 20 mg DAILY PO Last administered on 11/12/16 09:50; Admin Dose 20 MG; Start 09/27/16 at 09:00 Zolpidem Tartrate (Ambien) 5 mg QHS PRN PO INSOMNIA Last administered on 20:23; Admin Dose 5 MG; Start 09/26/16 at 23:00 Collagenase (Santyl) 1 applic DAILY TOP Last administered on 11/11/16 10:16; Admin Dose 1 APPLIC; Start 09/27/16 at 09:00 Collagenase (Santyl) 1 applic PRN PRN TOP SOILED OR DISLODGED DRESSING; Start 09/27/16 at 05:00 Lansoprazole (Prevacid) 30 mg DAILY@06 GTB Last administered on 11/12/16 05:29 ; Admin Dose 30 MG; Start 09/28/16 at 06:00 Cromolyn Sodium (Nasalcrom) 1 spray QID NASAL Last administered on 11/12/16 13 :24; Admin Dose 1 SPRAY; Start 09/29/16 at 11:02 Phenol (Cepastat Lozenge) 1 lozenge Q2H PRN MT SORE THROAT Last administered on 11/02/16 01:02; Admin Dose 1 LOZENGE; Start 10/01/16 at 19:00 IV Flush (NS 10 ml) 10 ml PRN PRN IV IV PROTOCOL Last administered on 08:08; Admin Dose 10 ML; Start 10/02/16 at 19:00 Lactobacillus Acidophilus (Florajen3 Capsule) 1 each TID PO Last administered on 11/12/16 13:24; Admin Dose 1 EACH; Start 10/03/16 at 21:00 Hydromorphone HCl (Dilaudid) 0.5 mg Q4H PRN IV PAIN Last administered on 08:55; Admin Dose 0.5 MG; Start 10/06/16 at 18:30 Promethazine HCl/ Codeine (Phenergan/ Codeine) 10 ml BID PRN PO COUGH Last administered on 11/12/16 11:10; Admin Dose 10 ML; Start 10/07/16 at 20:30 Potassium Chloride (Potassium Chloride Pwd/Soln) 20 meq DAILY GTB Last administered on 11/12/16 08:57; Admin Dose 20 MEQ; Start 10/30/16 at 12:00 Sodium Chloride (Nacl) 1 gm BID PO Last administered on 11/12/16 09:50; Admin Dose 1 GM; Start 11/01/16 at 21:00 Alprazolam (Xanax) 0.5 mg Q12H PRN PO ANXIETY Last administered on 11/12/16 06 :14; Admin Dose 0.5 MG; Start 11/08/16 at 20:30 Metronidazole 500 mg 500 mg Q8 PO Last administered on 11/12/16 13:25; Admin Dose 500 MG; Start 11/10/16 at 14:00 Dextrose/Sodium Chloride 1,000 ml @ 75 mls/hr [id number] IV Last administered on 11/12/16 04:20; Admin Dose 75 MLS/HR; Start 11/12/16 at 04:30 Norepinephrine/ Dextrose (Levophed/D5W) 500 ml @ 1.87 mls/hr TITRATE IV Last administered on 11/12/16 04:39; Admin Dose 11.25 MLS/HR; Start 11/12/16 at 04: 30 Assessment/Plan Additional Assessment/Plan - Hypernatremia - will stop NACL tabs - am BMP - will cont IVF - Hyponatremia, multifactorial - resolved- pt likey has Component of SAIDH causing hypoantreia, due to acute on chronic pain - Status post acute kidney injury on chronic kidney disease due to systemic inflammatory response syndrome. now improved - pt on bactrim, will continue to monitor her K and Cr - Sepsis, - History of recurrent polymicrobial urinary tract infections - History of dementia. - History of previous cerebrovascular accident. - History of chronic obstructive pulmonary disease, recently had acute respiratory failure secondary to chronic obstructive pulmonary disease exacerbation. - History of urinary retention with a chronic George catheter in place. - Chronic debility with cachexia. - Multiple decubitus ulcers with debris. Sacrococcygeal ulcer s/p exc boris . - History of degenerative joint disease of spine. - History of hypertension and hypertensive heart disease with mild to moderate concentric left ventricular hypertrophy and echocardiogram with diastolic dysfunction stage I.EF normal Further recommendations depend upon patient's clinical course. Plan of care discussed with Dr Rebecca Zapata/staff VIKASH CASTANEDA November 12, 2016 14:08 VIKASH CASTANEDA November 12, 2016 14:08
[2016-11-12] MEDS: ALBUTEROL/IPRATROPIUM (NEB) 3 ML AMP NEB PRN (15:42)
--- NOTE | 2016-11-12 15:52 | CONS ---
Date/Time of Note Date/Time of Note DATE: 11/12/16 TIME: 15:11 Assessment/Plan Assessment/Plan Chief Complaint/Hosp Course ID PROGRESS NOTE ABX: FLAGYL + Start Vanco IV + Amikacin s/p BACTRIM s/p Amikacin + Zyvox + Flagyl 24H INTERVAL SUMMARY * Hypotensive early am ~0300 => DIELECTRIC TESTER transported patient to ICU, episodes of SVT HR 160's * Lactic acid 0.9 - Low grade temp 99.6 -> Bactrim recently DC'd == large STG IV decub * Chronic elevated WBC w/ Hx of ABX associated diarrhea - started on C.Diff * Baseline hx of dementia w/agitative features, chronic debility PHYSICAL EXAMINATION: GENERAL: This is a chronically ill-appearing, frail 66 yo F HEENT: Unremarkable -- NECK: Supple, trachea midline. CHEST: Rise symmetrical without dyspnea ABDOMEN: Refuses exam EXTREMITIES: Moves all extremities, Without cyanosis. ID ASSESSMENT: 66 yo F w/PMHx Dementia, CVA(chronic left thalamic lacunar infarction), Tobacco/ COPD-Emphysema/Lung Cancer re-admit with: 1. Acute shock -> sepsis vs hypovolemic w/Hypotensive early am ~0300 => DIELECTRIC TESTER transported patient to ICU, episodes of SVT HR 160's * Afebrile * Hx of Chronic mild tachycardia - albuterol * Chronic elevated WBC 2. s/p Recurrent UTI = RESOLVED * (+)ACBA * s/p Proteus mirabilis and Klebsiella pneumoniae 3. Urinary retention with chronic George=>Probable neurogenic bladder 5. Status post acute respiratory failure secondary to chronic obstructive pulmonary disease exacerbation. * O2 dependent via NC, chronic recurrent cough, CXR w/persistent lung mass 6. Chronic debility w/Cachexia. 7. Multiple decubitus with a history of debridement => Sacrococcygeal ulcer s /p exc boris 10/27. 8. H/O DJD spine -> Hx of lumbar spinal fusion 9 .H/O Hypertension w/HTN heart disease mild-mod cLVH on ECHO w/diastolic dysfunction STG I 10. Right hand/wrist pain => CT showed triscaphe arthritis -- Probable pseudogout best treated w/NSAIDS 11. Hx of recurrent C.Diff colitis (+) MRSA Nares screen ->Bactroban INVASIVES: PICC, FC, Peg ALLERGY: PENICILLIN. CURRENT ABX: ABX: FLAGYL#3 + Start Vanco IV #1 + Amikacin #1 s/p BACTRIM s/p Amikacin + Zyvox + Flagyl ID PLAN: * Send Blood Cx, UA, C&S * Start Vanco IV + Amikacin + Continue Flagyl * Further recs per micro results . Problems: Consultation Date/Type/Reason Admit Date/Time Sep 26, 2016 at 20:07 Type of Consultation: ID Referring Provider: DRE LOBATO MD Exam/Review of Systems Vital Signs Vitals Vital Signs Date Time Temp Pulse Resp B/P Pulse Ox O2 Delivery O2 Flow Rate FiO2 11/12/16 14:45 107 39 85/63 95 Nasal Cannula 2.0 11/12/16 12:00 99.4 Intake and Output 11/11/16 11/11/16 11/12/16 15:00 23:00 07:00 Intake Total 750 ml 312.0 ml Output Total 1000 ml 200 ml Balance -250 ml 112.0 ml Results Result Diagram: 11/12/16 0540 11/12/16 0540 Results 24 hrs Laboratory Tests Test 11/11/16 23:26 11/12/16 02:43 11/12/16 05:40 Bedside Glucose 134 125 White Blood Count 19.8 H Red Blood Count 3.42 L Hemoglobin 9.0 L Hematocrit 31.0 L Mean Corpuscular Volume 90.6 Mean Corpuscular Hemoglobin 26.3 L Mean Corpuscular Hemoglobin Concent 29.0 L Red Cell Distribution Width 18.1 H Platelet Count 450 H Mean Platelet Volume 9.7 Neutrophils % 76.8 Lymphocytes % 10.6 L Monocytes % 9.5 Eosinophils % 1.5 Basophils % 0.7 Nucleated Red Blood Cells % 0.0 Neutrophils # 15.2 H Lymphocytes # 2.1 Monocytes # 1.9 H Eosinophils # 0.3 Basophils # 0.1 Nucleated Red Blood Cells # 0.0 Sodium Level 146 H Potassium Level 4.3 Chloride Level 116 H Carbon Dioxide Level 28 Anion Gap 6 L Blood Urea Nitrogen 37 H Creatinine 0.77 Glucose Level 172 Lactic Acid Level 0.9 Calcium Level 9.3 Medications Medications Current Medications Ondansetron HCl (Zofran Inj) 4 mg Q6 PRN IV NAUSEA AND/OR VOMITING; Start 09/26 at 22:30 Acetaminophen (Tylenol Tab) 650 mg Q6H PRN PO PAIN AND OR ELEVATED TEMP Last administered on 11/09/16 13:07; Admin Dose 650 MG; Start 09/26/16 at 23:00 Ascorbic Acid (Vitamin C) 500 mg BID PO Last administered on 11/12/16 08:57; Admin Dose 500 MG; Start 09/27/16 at 09:00 Atorvastatin Calcium (Lipitor) 20 mg QHS PO Last administered on 11/11/16 21: 23; Admin Dose 20 MG; Start 09/27/16 at 21:00 Diazepam (Valium) 10 mg DAILY PO Last administered on 11/12/16 08:57; Admin Dose 10 MG; Start 09/27/16 at 09:00 Docusate Sodium (Colace) 100 mg Q12H PRN PO CONSTIPATION Last administered on 09:23; Admin Dose 100 MG; Start 09/26/16 at 23:00 Duloxetine HCl (Cymbalta) 20 mg DAILY PO Last administered on 11/12/16 09:50; Admin Dose 20 MG; Start 09/27/16 at 09:00 Zolpidem Tartrate (Ambien) 5 mg QHS PRN PO INSOMNIA Last administered on 20:23; Admin Dose 5 MG; Start 09/26/16 at 23:00 Collagenase (Santyl) 1 applic DAILY TOP Last administered on 11/11/16 10:16; Admin Dose 1 APPLIC; Start 09/27/16 at 09:00 Collagenase (Santyl) 1 applic PRN PRN TOP SOILED OR DISLODGED DRESSING; Start 09/27/16 at 05:00 Lansoprazole (Prevacid) 30 mg DAILY@06 GTB Last administered on 11/12/16 05:29 ; Admin Dose 30 MG; Start 09/28/16 at 06:00 Cromolyn Sodium (Nasalcrom) 1 spray QID NASAL Last administered on 11/12/16 13 :24; Admin Dose 1 SPRAY; Start 09/29/16 at 11:02 Phenol (Cepastat Lozenge) 1 lozenge Q2H PRN MT SORE THROAT Last administered on 11/02/16 01:02; Admin Dose 1 LOZENGE; Start 10/01/16 at 19:00 IV Flush (NS 10 ml) 10 ml PRN PRN IV IV PROTOCOL Last administered on 08:08; Admin Dose 10 ML; Start 10/02/16 at 19:00 Lactobacillus Acidophilus (Florajen3 Capsule) 1 each TID PO Last administered on 11/12/16 13:24; Admin Dose 1 EACH; Start 10/03/16 at 21:00 Hydromorphone HCl (Dilaudid) 0.5 mg Q4H PRN IV PAIN Last administered on 14:29; Admin Dose 0.5 MG; Start 10/06/16 at 18:30 Promethazine HCl/ Codeine (Phenergan/ Codeine) 10 ml BID PRN PO COUGH Last administered on 11/12/16 11:10; Admin Dose 10 ML; Start 10/07/16 at 20:30 Potassium Chloride (Potassium Chloride Pwd/Soln) 20 meq DAILY GTB Last administered on 11/12/16 08:57; Admin Dose 20 MEQ; Start 10/30/16 at 12:00 Alprazolam (Xanax) 0.5 mg Q12H PRN PO ANXIETY Last administered on 11/12/16 06 :14; Admin Dose 0.5 MG; Start 11/08/16 at 20:30 Metronidazole 500 mg 500 mg Q8 PO Last administered on 11/12/16 13:25; Admin Dose 500 MG; Start 11/10/16 at 14:00 Dextrose/Sodium Chloride 1,000 ml @ 75 mls/hr [id number] IV Last administered on 11/12/16 04:20; Admin Dose 75 MLS/HR; Start 11/12/16 at 04:30 Norepinephrine/ Dextrose (Levophed/D5W) 500 ml @ 1.87 mls/hr TITRATE IV Last administered on 11/12/16 04:39; Admin Dose 11.25 MLS/HR; Start 11/12/16 at 04: 30 ALMA ROSARIO NP November 12, 2016 15:21
[2016-11-12] MEDS ORDERED: AMIKACIN IV PER PHARMACY XX SCH (16:00)
[2016-11-12] MEDS ORDERED: VANCOMYCIN IV PER PHARMACY XX SCH (16:00)
[2016-11-12] MEDS ORDERED: VANCOMYCIN 1 GM in NS 250 ML IVPB SCH (17:00)
[2016-11-12] MEDS: SOD CHLORIDE 0.9% IVPB SCH (18:59)
[2016-11-12] MEDS: AMIKACIN IVPB SCH (18:59)
[2016-11-12 19:11] LABS: ADD UMIC YES; UR BILIRUBIN (Dip) NEGATIVE (NEGATIVE); UR BLOOD (Dip) NEGATIVE (NEGATIVE); UR CLARITY CLEAR (CLEAR); UR COLOR YELLOW (YELLOW); UR GLUCOSE (Dip) NEGATIVE (NEGATIVE); UR KETONES (Dip) NEGATIVE (NEGATIVE); UR LEUKOCYTE ESTERASE (Dip) NEGATIVE (NEGATIVE); UR NITRITE (Dip) NEGATIVE (NEGATIVE); UR TOTAL PROTEIN (Dip) 1+ (NEGATIVE); UR UROBILINOGEN (Dip) 4.0 E.U./dL (0.1-1.0)
[2016-11-12 19:33] LABS: UR AMORPHOUS CRYSTAL FEW; UR BACTERIA FEW; URINE RBCS 0-2 /HPF (0)
[2016-11-12 19:34] LABS: UR TRANSITIONAL EPI CELL OCCASIONAL
--- NOTE | 2016-11-12 20:28 | PN ---
Date/Time of Note Date/Time of Note DATE: 11/12/16 TIME: 20:26 Assessment/Plan Lines/Catheters IV Catheter Type (from Nrs): PICC Line George in Place (from Nrs): Yes Assessment/Plan Chief Complaint/Hosp Course 1. Multiple decubitus ulcers with debris. Sacrococcygeal ulcer s/p exc boris . -Offload -Optimize nutrition -Vitamin C -Local care 2. UTI s/p abx 3. 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 Acute on chronic diastolic heart failure -Judicious fluid management -Cardiac optimization 5. Hypertension -Diet and medication control 6. Chronic urinary retention with George 7. Depression. -Medical management 8. Hypothyroidism by history. -Synthroid 9. Anemia of chronic disease in addition to iron deficiency anemia. -Continue iron supplements. -Transfusion when necessary 10. Chronic pain syndrome. Continue pain management. Thank you Problems: Subjective 24 Hr Interval Summary Leukocytosis. Tachyarrhythmia. Transferred back to ICU. No fevers, chills, nausea, vomiting, or abdominal pain. No abnormal vaginal discharge. No bloating. No cough, sz, bloating. No robles/dizzy/visual or neuro changes. Exam/Review of Systems Vital Signs Vitals Vital Signs Date Time Temp Pulse Resp B/P Pulse Ox O2 Delivery O2 Flow Rate FiO2 11/12/16 19:15 133 41 120/78 96 Nasal Cannula 2.0 11/12/16 16:00 98.8 Intake and Output 11/11/16 11/11/16 11/12/16 15:00 23:00 07:00 Intake Total 750 ml 372.0 ml Output Total 1000 ml 230 ml Balance -250 ml 142.0 ml Exam Free Text/Dictation GENERAL: Elderly, cachectic, no acute distress. HEENT: Head is atraumatic, normocephalic. Pupils equal, round, reactive to light and accommodation. Oral mucosa is pink and moist. NECK: Supple, no cervical lymphadenopathy LUNGS: Normal respiratory effort CARDIAC: S1 and S2. Tachy, Irregular ABDOMEN: Flat, soft and nondistended. Nontender. No rebound or guarding. SKIN: Multiple decubitus wounds/ulcers buttock sacrum and right lower extremity EXTREMITIES: No edema. Pulses equal bilaterally, 2+. NEUROLOGICAL: Responsive VASCULAR: Refill is less than 2 seconds Results Result Diagram: 11/12/16 0540 11/12/16 0540 ZAK POSEY MD November 12, 2016 20:28
[2016-11-12] MEDS: ATORVASTATIN 20 MG TAB PO SCH (21:48)
[2016-11-12] MEDS: METOPROLOL 25 MG TAB GTB PRN (22:57)
[2016-11-13] VITALS (93 sets, daily range): BP systolic 80–127; BP diastolic 57–94; PULSE 89–156; RESP 27–52
[2016-11-13] MEDS: L ACIDOPHIL/B LACTIS/B LONGUM CAPSULE PO SCH ×4 (00:26→20:42)
[2016-11-13] MEDS ORDERED: NORepinephrine 8MG/250 ML (PMX 250 ML IV SCH (00:30)
[2016-11-13] MEDS: metroNIDAZOLE 500 MG TAB PO SCH ×3 (05:24→21:54)
[2016-11-13] MEDS: LANSOPRAZOLE 30 MG CAP GTB SCH (05:24)
[2016-11-13 06:11] LABS: ADD SCAN DIFF NO
[2016-11-13 06:23] LABS: ABNORMAL IP MESSAGE 1; BASOPHIL # 0.1 10^3/ul (0.0-0.1); BASOPHILS % 0.7 % (0.0-2.0); EOSINOPHILS # 0.6 10^3/ul (0.0-0.5); HEMATOCRIT 31.7 % (37.0-47.0); HEMOGLOBIN 9.1 g/dl (12.0-16.0); LYMPHOCYTES # 2.3 10^3/ul (0.8-2.9); LYMPHOCYTES % 12.1 % (15.0-51.0); MEAN CORPUSCULAR HEMOGLOBIN 26.2 pg (29.0-33.0); MEAN CORPUSCULAR HGB CONC 28.7 g/dl (32.0-37.0); MEAN CORPUSCULAR VOLUME 91.4 fl (82.0-101.0); MEAN PLATELET VOLUME 9.8 fl (7.4-10.4); MONOCYTE # 1.8 10^3/ul (0.3-0.9); MONOCYTES % 9.4 % (0.0-11.0); NEUTROPHILS % 74.1 % (39.0-77.0); PLATELET COUNT 485 10^3/UL (140-415); RED BLOOD COUNT 3.47 10^6/ul (4.20-5.40); RED CELL DISTRIBUTION WIDTH 18.3 % (11.5-14.5); WHITE BLOOD COUNT 18.9 10^3/ul (4.8-10.8)
[2016-11-13 06:59] LABS: ALBUMIN 2.4 g/dl (3.3-4.9); POTASSIUM 3.9 mmol/L (3.5-5.1)
[2016-11-13 07:02] LABS: ALBUMIN/GLOBULIN RATIO 0.43; CREATININE 0.52 mg/dl (0.44-1.00); TOTAL PROTEIN 7.9 g/dl (6.1-8.1)
[2016-11-13 07:03] LABS: CALCIUM 9.1 mg/dl (8.4-10.2)
--- NOTE | 2016-11-13 08:47 | PN ---
Date/Time of Note Date/Time of Note DATE: 11/13/16 TIME: 08:46 Assessment/Plan Lines/Catheters IV Catheter Type (from Nrs): PICC Line George in Place (from Nrs): Yes Assessment/Plan Chief Complaint/Hosp Course 1. Multiple decubitus ulcers with debris. Sacrococcygeal ulcer s/p exc boris . -Offload -Optimize nutrition -Vitamin C -Local care 2. UTI s/p abx 3. 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 Acute on chronic diastolic heart failure -Judicious fluid management -Cardiac optimization 5. Hypertension -Diet and medication control 6. Chronic urinary retention with George 7. Depression. -Medical management 8. Hypothyroidism by history. -Synthroid 9. Anemia of chronic disease in addition to iron deficiency anemia. -Continue iron supplements. -Transfusion when necessary 10. Chronic pain syndrome. Continue pain management. Thank you Problems: Subjective 24 Hr Interval Summary Still in ICU. Leukocytosis. Tachyarrhythmia. No fevers, chills, nausea, vomiting, or abdominal pain. No abnormal vaginal discharge. No bloating. No cough, sz, bloating. No robles/dizzy/visual or neuro changes. Exam/Review of Systems Vital Signs Vitals Vital Signs Date Time Temp Pulse Resp B/P Pulse Ox O2 Delivery O2 Flow Rate FiO2 11/13/16 06:30 134 41 97/72 93 Nasal Cannula 2.0 11/13/16 04:00 98.4 Intake and Output 11/12/16 11/12/16 11/13/16 15:00 23:00 07:00 Intake Total 1511.50 ml 1514.05 ml 1346.75 ml Output Total 630 ml 825 ml 700 ml Balance 881.50 ml 689.05 ml 646.75 ml Exam Free Text/Dictation GENERAL: Elderly, cachectic, no acute distress. HEENT: Head is atraumatic, normocephalic. Pupils equal, round, reactive to light and accommodation. Oral mucosa is pink and moist. NECK: Supple, no cervical lymphadenopathy LUNGS: Normal respiratory effort CARDIAC: S1 and S2. Tachy, Irregular ABDOMEN: Flat, soft and nondistended. Nontender. No rebound or guarding. SKIN: Multiple decubitus wounds/ulcers buttock sacrum and right lower extremity EXTREMITIES: No edema. Pulses equal bilaterally, 2+. NEUROLOGICAL: Responsive VASCULAR: Refill is less than 2 seconds Results Result Diagram: 11/13/16 0455 11/13/16 0455 ZAK POSEY MD November 13, 2016 08:47
[2016-11-13] MEDS: COLLAGENASE 30 GM TUBE TOP SCH (09:00)
--- NOTE | 2016-11-13 09:43 | PN ---
Date/Time of Note Date/Time of Note DATE: 11/13/16 TIME: 09:42 Assessment/Plan VTE Prophylaxis VTE Prophylaxis Intervention: other Lines/Catheters IV Catheter Type (from [facility]): PICC Line Central line still needed: Yes Urinary Cath still in place: Yes Reason Cath still needed: skin wounds contaminated by urine Assessment/Plan Chief Complaint/Hosp Course - Persistent leukocytosis. Patient complete treatment with antibiotics, currently on Bactrim. - Hypotension. On vasopressors, monitor closely - Recurrent urinary tract infection with George catheter. Continue to monitor. - Chronic obstructive pulmonary disease. Continue breathing treatment. - Left lung squamous carcinoma. The patient is not a candidate for chemotherapy per previous assessment. - Multiple decubitus ulcers, status post wound debridement by Dr. Sinclair of sacrococcygeal wound. The patient is currently on wound VAC. Continue to follow up surgical recommendations. - Dysphagia with G-tube placement. Continue feeding through G-tube, strict aspiration precaution. - Hypothyroidism. Continue Synthroid. - Anemia of chronic disease. Continue to monitor hemoglobin and hematocrit. - Hyponatremia, resolved. - Chronic pain. Problems: Subjective 24 Hr Interval Summary Free Text/Dictation Patient awake but appears confused Exam/Review of Systems Vital Signs Vitals Vital Signs Date Time Temp Pulse Resp B/P Pulse Ox O2 Delivery O2 Flow Rate FiO2 11/13/16 06:30 134 41 97/72 93 Nasal Cannula 2.0 11/13/16 04:00 98.4 Intake and Output 11/12/16 11/12/16 11/13/16 14:59 22:59 06:59 Intake Total 1425.25 ml 1514.05 ml 1493.00 ml Output Total 610 ml 775 ml 800 ml Balance 815.25 ml 739.05 ml 693.00 ml Exam Constitutional: well developed Head: atraumatic Neck: supple Respiratory: diminished breath sounds Cardiovascular: regular rate and rhythm Gastrointestinal: non-tender, soft Extremities: normal pulses Results Result Diagram: 11/13/16 0455 11/13/16 0455 Results 24 hrs Laboratory Tests Test 11/12/16 16:40 11/13/16 04:55 Urine Color YELLOW Urine Clarity CLEAR Urine pH 6.5 Urine Specific [place] 1.010 Urine Ketones NEGATIVE Urine Nitrite NEGATIVE Urine Bilirubin NEGATIVE Urine Urobilinogen 4.0 E.U./dL H Urine Leukocyte Esterase NEGATIVE Urine Microscopic RBC 0-2 Urine Microscopic WBC 2-5 Urine Transitional Epithelial Cells OCCASIONAL Urine Amorphous Urates FEW Urine Bacteria FEW Urine Coarse Granular Casts OCCASIONAL Urine Hemoglobin NEGATIVE Urine Glucose NEGATIVE Urine Total Protein 1+ H White Blood Count 18.9 H Red Blood Count 3.47 L Hemoglobin 9.1 L Hematocrit 31.7 L Mean Corpuscular Volume 91.4 Mean Corpuscular Hemoglobin 26.2 L Mean Corpuscular Hemoglobin Concent 28.7 L Red Cell Distribution Width 18.3 H Platelet Count 485 H Mean Platelet Volume 9.8 Neutrophils % 74.1 Lymphocytes % 12.1 L Monocytes % 9.4 Eosinophils % 3.0 Basophils % 0.7 Nucleated Red Blood Cells % 0.0 Neutrophils # 14.0 H Lymphocytes # 2.3 Monocytes # 1.8 H Eosinophils # 0.6 H Basophils # 0.1 Nucleated Red Blood Cells # 0.0 Sodium Level 146 H Potassium Level 3.9 Chloride Level 114 H Carbon Dioxide Level 28 Anion Gap 8 Blood Urea Nitrogen 27 H Creatinine 0.52 Glucose Level 146 Calcium Level 9.1 Total Bilirubin 0.0 L Direct Bilirubin 0.00 Indirect Bilirubin 0.0 Aspartate Amino Transf (AST/SGOT) 85 H Alanine Aminotransferase (ALT/SGPT) 90 H Alkaline Phosphatase 381 H Total Protein 7.9 Albumin 2.4 L Globulin 5.50 H Albumin/Globulin Ratio 0.43 Medications Medications Current Medications Ondansetron HCl (Zofran Inj) 4 mg Q6 PRN IV NAUSEA AND/OR VOMITING; Start 09/26 at 22:30 Acetaminophen (Tylenol Tab) 650 mg Q6H PRN PO PAIN AND OR ELEVATED TEMP Last administered on 11/09/16 13:07; Admin Dose 650 MG; Start 09/26/16 at 23:00 Ascorbic Acid (Vitamin C) 500 mg BID PO Last administered on 11/12/16 21:48; Admin Dose 500 MG; Start 09/27/16 at 09:00 Atorvastatin Calcium (Lipitor) 20 mg QHS PO Last administered on 11/12/16 21: 48; Admin Dose 20 MG; Start 09/27/16 at 21:00 Diazepam (Valium) 10 mg DAILY PO Last administered on 11/12/16 08:57; Admin Dose 10 MG; Start 09/27/16 at 09:00 Docusate Sodium (Colace) 100 mg Q12H PRN PO CONSTIPATION Last administered on 09:23; Admin Dose 100 MG; Start 09/26/16 at 23:00 Duloxetine HCl (Cymbalta) 20 mg DAILY PO Last administered on 11/12/16 09:50; Admin Dose 20 MG; Start 09/27/16 at 09:00 Zolpidem Tartrate (Ambien) 5 mg QHS PRN PO INSOMNIA Last administered on 20:23; Admin Dose 5 MG; Start 09/26/16 at 23:00 Collagenase (Santyl) 1 applic DAILY TOP Last administered on 11/11/16 10:16; Admin Dose 1 APPLIC; Start 09/27/16 at 09:00 Collagenase (Santyl) 1 applic PRN PRN TOP SOILED OR DISLODGED DRESSING; Start 09/27/16 at 05:00 Lansoprazole (Prevacid) 30 mg DAILY@06 GTB Last administered on 11/13/16 05:24 ; Admin Dose 30 MG; Start 09/28/16 at 06:00 Cromolyn Sodium (Nasalcrom) 1 spray QID NASAL Last administered on 11/12/16 21 :48; Admin Dose 1 SPRAY; Start 09/29/16 at 11:02 Phenol (Cepastat Lozenge) 1 lozenge Q2H PRN MT SORE THROAT Last administered on 11/02/16 01:02; Admin Dose 1 LOZENGE; Start 10/01/16 at 19:00 IV Flush (NS 10 ml) 10 ml PRN PRN IV IV PROTOCOL Last administered on 08:08; Admin Dose 10 ML; Start 10/02/16 at 19:00 Lactobacillus Acidophilus (Florajen3 Capsule) 1 each TID PO Last administered on 11/12/16 13:24; Admin Dose 1 EACH; Start 10/03/16 at 21:00 Hydromorphone HCl (Dilaudid) 0.5 mg Q4H PRN IV PAIN Last administered on 21:56; Admin Dose 0.5 MG; Start 10/06/16 at 18:30 Promethazine HCl/ Codeine (Phenergan/ Codeine) 10 ml BID PRN PO COUGH Last administered on 11/12/16 11:10; Admin Dose 10 ML; Start 10/07/16 at 20:30 Potassium Chloride (Potassium Chloride Pwd/Soln) 20 meq DAILY GTB Last administered on 11/12/16 08:57; Admin Dose 20 MEQ; Start 10/30/16 at 12:00 Alprazolam (Xanax) 0.5 mg Q12H PRN PO ANXIETY Last administered on 11/12/16 18 :55; Admin Dose 0.5 MG; Start 11/08/16 at 20:30 Metronidazole 500 mg 500 mg Q8 PO Last administered on 11/13/16 05:24; Admin Dose 500 MG; Start 11/10/16 at 14:00 Dextrose/Sodium Chloride 1,000 ml @ 75 mls/hr [id number] IV Last administered on 11/12/16 17:23; Admin Dose 75 MLS/HR; Start 11/12/16 at 04:30 Norepinephrine/ Dextrose (Levophed/D5W) 500 ml @ 1.87 mls/hr TITRATE IV Last administered on 11/12/16 04:39; Admin Dose 11.25 MLS/HR; Start 11/12/16 at 04: 30 Amikacin Sulfate AMIKACIN PER PHARMACY NOTE XX ; Start 11/12/16 at 16:00 Amikacin Sulfate/ Sodium Chloride (Amikacin/NS) 102.8 ml @ 102 mls/hr Q36H IVPB Last administered on 11/12/16 18:59; Admin Dose 102 MLS/HR; Start at 18:30 Metoprolol Tartrate 25 mg 25 mg Q6 PRN GTB For HR > 130 Last administered on 22:57; Admin Dose 25 MG; Start 11/12/16 at 22:30 Vancomycin HCl (Vancocin) 100 ml @ 100 mls/hr Q12H IVPB ; Start 11/13/16 at 10: 00 MICHAEL HOROWITZ November 13, 2016 09:43
[2016-11-13] MEDS: DIAZEPAM 5 MG TAB PO SCH (09:49)
[2016-11-13] MEDS: DULOXETINE 20 MG CAP DR PO SCH (09:49)
[2016-11-13] MEDS: VANCOMYCIN 500MG/NS (PMX) 100 ML IVPB SCH ×2 (09:49→21:55)
[2016-11-13] MEDS: METOPROLOL 25 MG TAB GTB PRN ×2 (09:49→15:41)
[2016-11-13] MEDS: LEVOTHYROXINE 125 MCG TAB PO SCH (09:50)
[2016-11-13] MEDS: CROMOLYN 4% 26ML NAS INH NASAL SCH ×4 (09:50→20:42)
[2016-11-13] MEDS: ASCORBIC ACID 500 MG TAB PO SCH ×2 (09:50→20:42)
[2016-11-13] MEDS: POTASSIUM CHLORIDE 20 MEQ POWDER FOR ORAL SOLN GTB SCH (09:50)
[2016-11-13] MEDS: HYDROmorphONE 1 MG/ML SYG IV PRN ×3 (09:51→20:43)
--- NOTE | 2016-11-13 10:59 | CONS ---
Date/Time of Note Date/Time of Note DATE: 11/13/16 TIME: 10:57 Consult Date/Type/Reason Admit Date/Time Sep 26, 2016 at 20:07 Initial Consult Date 10/19/16 Type of Consultation: ID Ordering Provider: DRE LOBATO MD Subjective alrt/awake, follows simple commands, stated feels better, dw satff- no new issues reported overnight. Objective Vital Signs Date Time Temp Pulse Resp B/P Pulse Ox O2 Delivery O2 Flow Rate FiO2 11/13/16 10:15 132 51 105/81 90 11/13/16 10:00 Nasal Cannula 2.0 11/13/16 08:00 99.7 Intake and Output 11/12/16 11/12/16 11/13/16 15:00 23:00 07:00 Intake Total 1511.50 ml 1514.05 ml 1456.75 ml Output Total 630 ml 825 ml 700 ml Balance 881.50 ml 689.05 ml 756.75 ml Exam GENERAL: NAD, alert/awake/cachectic elderly female, resting in bed, seems comfortable HEENT: Head atraumatic, normocephalic. Sclerae anicteric. Buccal mucosa dry. NECK: Supple, trachea midline. CHEST: Rise symmetrical. Breath sounds diminished to bases bilaterally HEART: S1, S2. ABDOMEN: Soft. Bowel sounds present. GT intact EXTREMITIES: Wasted without cyanosis. Results/Medications Result Diagram: 11/13/16 0455 11/13/16 0455 Results 24 hrs Laboratory Tests Test 11/12/16 16:40 11/13/16 04:55 Urine Color YELLOW Urine Clarity CLEAR Urine pH 6.5 Urine Specific [place] 1.010 Urine Ketones NEGATIVE Urine Nitrite NEGATIVE Urine Bilirubin NEGATIVE Urine Urobilinogen 4.0 E.U./dL H Urine Leukocyte Esterase NEGATIVE Urine Microscopic RBC 0-2 Urine Microscopic WBC 2-5 Urine Transitional Epithelial Cells OCCASIONAL Urine Amorphous Urates FEW Urine Bacteria FEW Urine Coarse Granular Casts OCCASIONAL Urine Hemoglobin NEGATIVE Urine Glucose NEGATIVE Urine Total Protein 1+ H White Blood Count 18.9 H Red Blood Count 3.47 L Hemoglobin 9.1 L Hematocrit 31.7 L Mean Corpuscular Volume 91.4 Mean Corpuscular Hemoglobin 26.2 L Mean Corpuscular Hemoglobin Concent 28.7 L Red Cell Distribution Width 18.3 H Platelet Count 485 H Mean Platelet Volume 9.8 Neutrophils % 74.1 Lymphocytes % 12.1 L Monocytes % 9.4 Eosinophils % 3.0 Basophils % 0.7 Nucleated Red Blood Cells % 0.0 Neutrophils # 14.0 H Lymphocytes # 2.3 Monocytes # 1.8 H Eosinophils # 0.6 H Basophils # 0.1 Nucleated Red Blood Cells # 0.0 Sodium Level 146 H Potassium Level 3.9 Chloride Level 114 H Carbon Dioxide Level 28 Anion Gap 8 Blood Urea Nitrogen 27 H Creatinine 0.52 Glucose Level 146 Calcium Level 9.1 Total Bilirubin 0.0 L Direct Bilirubin 0.00 Indirect Bilirubin 0.0 Aspartate Amino Transf (AST/SGOT) 85 H Alanine Aminotransferase (ALT/SGPT) 90 H Alkaline Phosphatase 381 H Total Protein 7.9 Albumin 2.4 L Globulin 5.50 H Albumin/Globulin Ratio 0.43 Medications Current Medications Ondansetron HCl (Zofran Inj) 4 mg Q6 PRN IV NAUSEA AND/OR VOMITING; Start 09/26 at 22:30 Acetaminophen (Tylenol Tab) 650 mg Q6H PRN PO PAIN AND OR ELEVATED TEMP Last administered on 11/09/16 13:07; Admin Dose 650 MG; Start 09/26/16 at 23:00 Ascorbic Acid (Vitamin C) 500 mg BID PO Last administered on 11/13/16 09:50; Admin Dose 500 MG; Start 09/27/16 at 09:00 Atorvastatin Calcium (Lipitor) 20 mg QHS PO Last administered on 11/12/16 21: 48; Admin Dose 20 MG; Start 09/27/16 at 21:00 Diazepam (Valium) 10 mg DAILY PO Last administered on 11/13/16 09:49; Admin Dose 10 MG; Start 09/27/16 at 09:00 Docusate Sodium (Colace) 100 mg Q12H PRN PO CONSTIPATION Last administered on 09:23; Admin Dose 100 MG; Start 09/26/16 at 23:00 Duloxetine HCl (Cymbalta) 20 mg DAILY PO Last administered on 11/13/16 09:49; Admin Dose 20 MG; Start 09/27/16 at 09:00 Zolpidem Tartrate (Ambien) 5 mg QHS PRN PO INSOMNIA Last administered on 20:23; Admin Dose 5 MG; Start 09/26/16 at 23:00 Collagenase (Santyl) 1 applic DAILY TOP Last administered on 11/11/16 10:16; Admin Dose 1 APPLIC; Start 09/27/16 at 09:00 Collagenase (Santyl) 1 applic PRN PRN TOP SOILED OR DISLODGED DRESSING; Start 09/27/16 at 05:00 Lansoprazole (Prevacid) 30 mg DAILY@06 GTB Last administered on 11/13/16 05:24 ; Admin Dose 30 MG; Start 09/28/16 at 06:00 Cromolyn Sodium (Nasalcrom) 1 spray QID NASAL Last administered on 11/13/16 09 :50; Admin Dose 1 SPRAY; Start 09/29/16 at 11:02 Phenol (Cepastat Lozenge) 1 lozenge Q2H PRN MT SORE THROAT Last administered on 11/02/16 01:02; Admin Dose 1 LOZENGE; Start 10/01/16 at 19:00 IV Flush (NS 10 ml) 10 ml PRN PRN IV IV PROTOCOL Last administered on 08:08; Admin Dose 10 ML; Start 10/02/16 at 19:00 Lactobacillus Acidophilus (Florajen3 Capsule) 1 each TID PO Last administered on 11/13/16 09:49; Admin Dose 1 EACH; Start 10/03/16 at 21:00 Hydromorphone HCl (Dilaudid) 0.5 mg Q4H PRN IV PAIN Last administered on 09:51; Admin Dose 0.5 MG; Start 10/06/16 at 18:30 Promethazine HCl/ Codeine (Phenergan/ Codeine) 10 ml BID PRN PO COUGH Last administered on 11/12/16 11:10; Admin Dose 10 ML; Start 10/07/16 at 20:30 Potassium Chloride (Potassium Chloride Pwd/Soln) 20 meq DAILY GTB Last administered on 11/13/16 09:50; Admin Dose 20 MEQ; Start 10/30/16 at 12:00 Alprazolam (Xanax) 0.5 mg Q12H PRN PO ANXIETY Last administered on 11/12/16 18 :55; Admin Dose 0.5 MG; Start 11/08/16 at 20:30 Metronidazole 500 mg 500 mg Q8 PO Last administered on 11/13/16 05:24; Admin Dose 500 MG; Start 11/10/16 at 14:00 Dextrose/Sodium Chloride 1,000 ml @ 75 mls/hr [id number] IV Last administered on 11/12/16 17:23; Admin Dose 75 MLS/HR; Start 11/12/16 at 04:30 Norepinephrine/ Dextrose (Levophed/D5W) 500 ml @ 1.87 mls/hr TITRATE IV Last administered on 11/12/16 04:39; Admin Dose 11.25 MLS/HR; Start 11/12/16 at 04: 30 Amikacin Sulfate AMIKACIN PER PHARMACY NOTE XX ; Start 11/12/16 at 16:00 Amikacin Sulfate/ Sodium Chloride (Amikacin/NS) 102.8 ml @ 102 mls/hr Q36H IVPB Last administered on 11/12/16 18:59; Admin Dose 102 MLS/HR; Start at 18:30 Metoprolol Tartrate 25 mg 25 mg Q6 PRN GTB For HR > 130 Last administered on 09:49; Admin Dose 25 MG; Start 11/12/16 at 22:30 Vancomycin HCl (Vancocin) 100 ml @ 100 mls/hr Q12H IVPB Last administered on 09:49; Admin Dose 100 MLS/HR; Start 11/13/16 at 10:00 Assessment/Plan Additional Assessment/Plan Hypernatremia - 147 - cont stop NACL tabs - am BMP - will cont IVF - Hyponatremia, multifactorial - resolved- pt likey has Component of SAIDH causing hypoantreia, due to acute on chronic pain - Status post acute kidney injury on chronic kidney disease due to systemic inflammatory response syndrome. now improved - pt on bactrim, will continue to monitor her K and Cr - Sepsis, - History of recurrent polymicrobial urinary tract infections - History of dementia. - History of previous cerebrovascular accident. - History of chronic obstructive pulmonary disease, recently had acute respiratory failure secondary to chronic obstructive pulmonary disease exacerbation. - History of urinary retention with a chronic George catheter in place. - Chronic debility with cachexia. - Multiple decubitus ulcers with debris. Sacrococcygeal ulcer s/p exc boris . - History of degenerative joint disease of spine. - History of hypertension and hypertensive heart disease with mild to moderate concentric left ventricular hypertrophy and echocardiogram with diastolic dysfunction stage I.EF normal Further recommendations depend upon patient's clinical course. Plan of care discussed with Dr Rebecca Zapata/staff VIKASH CASTANEDA November 13, 2016 10:59
[2016-11-13] MEDS ORDERED: VANCOMYCIN 500MG/NS (PMX) 100 ML IVPB SCH (11:00)
[2016-11-13] MEDS: DEXTROSE 5%-0.45% NACL 1,000 ML IV SCH (11:12)
[2016-11-13] MEDS: ALPRAZOLAM 0.25 MG TAB PO PRN (11:18)
--- NOTE | 2016-11-13 15:07 | PN ---
DATE: 11/13/2016 SUBJECTIVE: The patient is alert and awake, follows simple commands. OBJECTIVE: VITAL SIGNS: Temperature 99.7, pulse 132, blood pressure 105/81, oxygen saturation 90%. NECK: No jugular venous distension. ABDOMEN: Cachexia, soft. EXTREMITIES: No edema. HEART: Tachycardic rhythm. LABORATORY RESULTS: White count 18.9, hematocrit 31.7, platelet count 45. Sodium 146, potassium 3. 9, BUN 27, creatinine 0.5. CURRENT MEDICATIONS: Patient is on 1. Levophed. 2. Vancomycin 3. Metoprolol. 4. Amikacin. 5. Levophed has been titrated off. ASSESSMENT: Sepsis and hypotension, diastolic heart failure, pulmonary hypertension, preserved eje ction fraction and lung cancer. Would avoid beta belinda while patient on pressors. Elevated heart rate secondary to underlying medical issues. Dictated By: JENA ORDOÑEZ/SANDER Conf#: [id number] DID#: [id number]
--- NOTE | 2016-11-13 16:28 | CONS ---
Date/Time of Note Date/Time of Note DATE: 11/13/16 TIME: 16:26 Assessment/Plan Assessment/Plan Chief Complaint/Hosp Course ID PROGRESS NOTE ABX: FLAGYL + Vanco IV #2 + Amikacin #2 s/p BACTRIM s/p Amikacin + Zyvox + Flagyl 24H INTERVAL SUMMARY * Critically ill,eyes open, non-communicative, septic shock,low grade temps, tachycardia HR 130's * s/p TNS to ICU 11/12/16 w/Hypotensive early am ~0300 => [employer] transported patient to ICU, episodes of SVT HR 160's * Lactic acid 0.9 - Low grade temp 99.6 -> Bactrim recently DC'd == large STG IV decub * Chronic elevated WBC w/ Hx of ABX associated diarrhea - started on C.Diff * Baseline hx of dementia w/agitative features, chronic debility PHYSICAL EXAMINATION: GENERAL: This is a chronically ill-appearing, frail 66 yo F HEENT: Unremarkable -- NECK: Supple, trachea midline. CHEST: Rise symmetrical without dyspnea ABDOMEN: Refuses exam EXTREMITIES: Moves all extremities, Without cyanosis. ID ASSESSMENT: 66 yo F w/PMHx Dementia, CVA(chronic left thalamic lacunar infarction), Tobacco/ COPD-Emphysema/Lung Cancer re-admit with: 1. Acute shock -> sepsis vs hypovolemic w/Hypotensive early am ~0300 => [employer] transported patient to ICU, episodes of SVT HR 160's * Afebrile * Hx of Chronic mild tachycardia - albuterol * Chronic elevated WBC 2. s/p Recurrent UTI = RESOLVED * (+)ACBA * s/p Proteus mirabilis and Klebsiella pneumoniae 3. Urinary retention with chronic George=>Probable neurogenic bladder 5. Status post acute respiratory failure secondary to chronic obstructive pulmonary disease exacerbation. * O2 dependent via NC, chronic recurrent cough, CXR w/persistent lung mass 6. Chronic debility w/Cachexia. 7. Multiple decubitus with a history of debridement => Sacrococcygeal ulcer s /p exc boris 10/27. 8. H/O DJD spine -> Hx of lumbar spinal fusion 9 .H/O Hypertension w/HTN heart disease mild-mod cLVH on ECHO w/diastolic dysfunction STG I 10. Right hand/wrist pain => CT showed triscaphe arthritis -- Probable pseudogout best treated w/NSAIDS 11. Hx of recurrent C.Diff colitis (+) MRSA Nares screen ->Bactroban INVASIVES: PICC, FC, Peg ALLERGY: PENICILLIN. CURRENT ABX: ABX: FLAGYL#4 + Start Vanco IV #2 + Amikacin #2 s/p BACTRIM s/p Amikacin + Zyvox + Flagyl ID PLAN: * Send Blood Cx, UA, C&S * Start Vanco IV + Amikacin + Continue Flagyl * Further recs per micro results . Problems: Consultation Date/Type/Reason Admit Date/Time Sep 26, 2016 at 20:07 Type of Consultation: ID Referring Provider: DRE LOBATO MD Exam/Review of Systems Vital Signs Vitals Vital Signs Date Time Temp Pulse Resp B/P Pulse Ox O2 Delivery O2 Flow Rate FiO2 11/13/16 13:00 136 39 94/72 98 Nasal Cannula 2.0 11/13/16 12:00 99.2 Intake and Output 11/12/16 11/12/16 11/13/16 15:00 23:00 07:00 Intake Total 1511.50 ml 1514.05 ml 1543.00 ml Output Total 630 ml 825 ml 700 ml Balance 881.50 ml 689.05 ml 843.00 ml Results Result Diagram: 11/13/16 0455 11/13/16 0455 Results 24 hrs Laboratory Tests Test 11/12/16 16:40 11/13/16 04:55 11/13/16 12:23 Urine Color YELLOW Urine Clarity CLEAR Urine pH 6.5 Urine Specific [place] 1.010 Urine Ketones NEGATIVE Urine Nitrite NEGATIVE Urine Bilirubin NEGATIVE Urine Urobilinogen 4.0 E.U./dL H Urine Leukocyte Esterase NEGATIVE Urine Microscopic RBC 0-2 Urine Microscopic WBC 2-5 Urine Transitional Epithelial Cells OCCASIONAL Urine Amorphous Urates FEW Urine Bacteria FEW Urine Coarse Granular Casts OCCASIONAL Urine Hemoglobin NEGATIVE Urine Glucose NEGATIVE Urine Total Protein 1+ H White Blood Count 18.9 H Red Blood Count 3.47 L Hemoglobin 9.1 L Hematocrit 31.7 L Mean Corpuscular Volume 91.4 Mean Corpuscular Hemoglobin 26.2 L Mean Corpuscular Hemoglobin Concent 28.7 L Red Cell Distribution Width 18.3 H Platelet Count 485 H Mean Platelet Volume 9.8 Neutrophils % 74.1 Lymphocytes % 12.1 L Monocytes % 9.4 Eosinophils % 3.0 Basophils % 0.7 Nucleated Red Blood Cells % 0.0 Neutrophils # 14.0 H Lymphocytes # 2.3 Monocytes # 1.8 H Eosinophils # 0.6 H Basophils # 0.1 Nucleated Red Blood Cells # 0.0 Sodium Level 146 H Potassium Level 3.9 Chloride Level 114 H Carbon Dioxide Level 28 Anion Gap 8 Blood Urea Nitrogen 27 H Creatinine 0.52 Glucose Level 146 Calcium Level 9.1 Total Bilirubin 0.0 L Direct Bilirubin 0.00 Indirect Bilirubin 0.0 Aspartate Amino Transf (AST/SGOT) 85 H Alanine Aminotransferase (ALT/SGPT) 90 H Alkaline Phosphatase 381 H Total Protein 7.9 Albumin 2.4 L Globulin 5.50 H Albumin/Globulin Ratio 0.43 Random Amikacin Level Lab Scanned Report REFERENCE LAB Medications Medications Current Medications Ondansetron HCl (Zofran Inj) 4 mg Q6 PRN IV NAUSEA AND/OR VOMITING; Start 09/26 at 22:30 Acetaminophen (Tylenol Tab) 650 mg Q6H PRN PO PAIN AND OR ELEVATED TEMP Last administered on 11/09/16 13:07; Admin Dose 650 MG; Start 09/26/16 at 23:00 Ascorbic Acid (Vitamin C) 500 mg BID PO Last administered on 11/13/16 09:50; Admin Dose 500 MG; Start 09/27/16 at 09:00 Atorvastatin Calcium (Lipitor) 20 mg QHS PO Last administered on 11/12/16 21: 48; Admin Dose 20 MG; Start 09/27/16 at 21:00 Diazepam (Valium) 10 mg DAILY PO Last administered on 11/13/16 09:49; Admin Dose 10 MG; Start 09/27/16 at 09:00 Docusate Sodium (Colace) 100 mg Q12H PRN PO CONSTIPATION Last administered on 09:23; Admin Dose 100 MG; Start 09/26/16 at 23:00 Duloxetine HCl (Cymbalta) 20 mg DAILY PO Last administered on 11/13/16 09:49; Admin Dose 20 MG; Start 09/27/16 at 09:00 Zolpidem Tartrate (Ambien) 5 mg QHS PRN PO INSOMNIA Last administered on 20:23; Admin Dose 5 MG; Start 09/26/16 at 23:00 Collagenase (Santyl) 1 applic DAILY TOP Last administered on 11/11/16 10:16; Admin Dose 1 APPLIC; Start 09/27/16 at 09:00 Collagenase (Santyl) 1 applic PRN PRN TOP SOILED OR DISLODGED DRESSING; Start 09/27/16 at 05:00 Lansoprazole (Prevacid) 30 mg DAILY@06 GTB Last administered on 11/13/16 05:24 ; Admin Dose 30 MG; Start 09/28/16 at 06:00 Cromolyn Sodium (Nasalcrom) 1 spray QID NASAL Last administered on 11/13/16 14 :15; Admin Dose 1 SPRAY; Start 09/29/16 at 11:02 Phenol (Cepastat Lozenge) 1 lozenge Q2H PRN MT SORE THROAT Last administered on 11/02/16 01:02; Admin Dose 1 LOZENGE; Start 10/01/16 at 19:00 IV Flush (NS 10 ml) 10 ml PRN PRN IV IV PROTOCOL Last administered on 08:08; Admin Dose 10 ML; Start 10/02/16 at 19:00 Lactobacillus Acidophilus (Florajen3 Capsule) 1 each TID PO Last administered on 11/13/16 15:41; Admin Dose 1 EACH; Start 10/03/16 at 21:00 Hydromorphone HCl (Dilaudid) 0.5 mg Q4H PRN IV PAIN Last administered on 15:41; Admin Dose 0.5 MG; Start 10/06/16 at 18:30 Promethazine HCl/ Codeine (Phenergan/ Codeine) 10 ml BID PRN PO COUGH Last administered on 11/12/16 11:10; Admin Dose 10 ML; Start 10/07/16 at 20:30 Potassium Chloride (Potassium Chloride Pwd/Soln) 20 meq DAILY GTB Last administered on 11/13/16 09:50; Admin Dose 20 MEQ; Start 10/30/16 at 12:00 Alprazolam (Xanax) 0.5 mg Q12H PRN PO ANXIETY Last administered on 11/13/16 11 :18; Admin Dose 0.5 MG; Start 11/08/16 at 20:30 Metronidazole 500 mg 500 mg Q8 PO Last administered on 11/13/16 14:15; Admin Dose 500 MG; Start 11/10/16 at 14:00 Dextrose/Sodium Chloride 1,000 ml @ 75 mls/hr [id number] IV Last administered on 11/13/16 11:12; Admin Dose 75 MLS/HR; Start 11/12/16 at 04:30 Norepinephrine/ Dextrose (Levophed/D5W) 500 ml @ 1.87 mls/hr TITRATE IV Last administered on 11/13/16 15:58; Admin Dose 3.75 MLS/HR; Start 11/12/16 at 04:30 Amikacin Sulfate AMIKACIN PER PHARMACY NOTE XX ; Start 11/12/16 at 16:00 Amikacin Sulfate/ Sodium Chloride (Amikacin/NS) 102.8 ml @ 102 mls/hr Q36H IVPB Last administered on 11/12/16 18:59; Admin Dose 102 MLS/HR; Start at 18:30 Metoprolol Tartrate 25 mg 25 mg Q6 PRN GTB For HR > 130 Last administered on 15:41; Admin Dose 25 MG; Start 11/12/16 at 22:30 Vancomycin HCl (Vancocin) 100 ml @ 100 mls/hr Q12H IVPB Last administered on 09:49; Admin Dose 100 MLS/HR; Start 11/13/16 at 10:00 ALMA ROSARIO NP November 13, 2016 16:28
[2016-11-13] MEDS ORDERED: VANCOMYCIN 750 MG in SOD CHLORIDE 0.9% 150 ML IVPB SCH (17:00)
[2016-11-13] MEDS: ATORVASTATIN 20 MG TAB PO SCH (20:42)
--- NOTE | 2016-11-13 23:44 | CONS ---
Date/Time of Note Date/Time of Note DATE: 11/13/16 TIME: 23:44 Assessment/Plan Assessment/Plan Chief Complaint/Hosp Course Left lung squamous carcinoma. The patient is not a candidate for chemotherapy. Anemia of chronic disease. monitor blood count closely transfuse as needed to keep HB above 8 Acute respiratory insufficiency requiring BiPAP. Acute shock, septic versus hypovolemic. tachycardia with episode of SVT. Chronic obstructive pulmonary disease. Dysphagia with G-tube. Continue current G-tube feeding. Hypothyroidism. Continue Synthroid. Problems: Consultation Date/Type/Reason Admit Date/Time Sep 26, 2016 at 20:07 Initial Consult Date 10/19/16 Type of Consultation: [facility] Referring Provider: DRE LOBATO MD 24 HR Interval Summary Free Text/Dictation ALL NOTED Exam/Review of Systems Vital Signs Vitals Vital Signs Date Time Temp Pulse Resp B/P Pulse Ox O2 Delivery O2 Flow Rate FiO2 11/13/16 23:15 140 48 94/68 94 Nasal Cannula 2.0 11/13/16 20:00 98.1 Intake and Output 11/12/16 11/12/16 11/13/16 15:00 23:00 07:00 Intake Total 1511.50 ml 1514.05 ml 1543.00 ml Output Total 630 ml 825 ml 700 ml Balance 881.50 ml 689.05 ml 843.00 ml Exam GENERAL: Cachectic female, currently awake. NECK: Supple. LUNGS: Diminished air entry bilaterally. HEART: Normal S1, S2. No murmurs. The patient is tachycardic. ABDOMEN: Flat, soft, nondistended, nontender. G-tube with intact stoma. EXTREMITIES: Normal pulses, no edema. SKIN: There are multiple decubitus ulcers including bilateral buttocks and bilateral lower extremities. The patient has a wound VAC to sacral decubitus wound. Results Result Diagram: 11/13/16 0455 11/13/16 0455 Results 24 hrs Laboratory Tests Test 11/13/16 04:55 11/13/16 12:23 White Blood Count 18.9 H Red Blood Count 3.47 L Hemoglobin 9.1 L Hematocrit 31.7 L Mean Corpuscular Volume 91.4 Mean Corpuscular Hemoglobin 26.2 L Mean Corpuscular Hemoglobin Concent 28.7 L Red Cell Distribution Width 18.3 H Platelet Count 485 H Mean Platelet Volume 9.8 Neutrophils % 74.1 Lymphocytes % 12.1 L Monocytes % 9.4 Eosinophils % 3.0 Basophils % 0.7 Nucleated Red Blood Cells % 0.0 Neutrophils # 14.0 H Lymphocytes # 2.3 Monocytes # 1.8 H Eosinophils # 0.6 H Basophils # 0.1 Nucleated Red Blood Cells # 0.0 Sodium Level 146 H Potassium Level 3.9 Chloride Level 114 H Carbon Dioxide Level 28 Anion Gap 8 Blood Urea Nitrogen 27 H Creatinine 0.52 Glucose Level 146 Calcium Level 9.1 Total Bilirubin 0.0 L Direct Bilirubin 0.00 Indirect Bilirubin 0.0 Aspartate Amino Transf (AST/SGOT) 85 H Alanine Aminotransferase (ALT/SGPT) 90 H Alkaline Phosphatase 381 H Total Protein 7.9 Albumin 2.4 L Globulin 5.50 H Albumin/Globulin Ratio 0.43 Random Amikacin Level Lab Scanned Report REFERENCE LAB Medications Medications Current Medications Ondansetron HCl (Zofran Inj) 4 mg Q6 PRN IV NAUSEA AND/OR VOMITING; Start 09/26 at 22:30 Acetaminophen (Tylenol Tab) 650 mg Q6H PRN PO PAIN AND OR ELEVATED TEMP Last administered on 11/09/16 13:07; Admin Dose 650 MG; Start 09/26/16 at 23:00 Ascorbic Acid (Vitamin C) 500 mg BID PO Last administered on 11/13/16 20:42; Admin Dose 500 MG; Start 09/27/16 at 09:00 Atorvastatin Calcium (Lipitor) 20 mg QHS PO Last administered on 11/13/16 20: 42; Admin Dose 20 MG; Start 09/27/16 at 21:00 Diazepam (Valium) 10 mg DAILY PO Last administered on 11/13/16 09:49; Admin Dose 10 MG; Start 09/27/16 at 09:00 Docusate Sodium (Colace) 100 mg Q12H PRN PO CONSTIPATION Last administered on 09:23; Admin Dose 100 MG; Start 09/26/16 at 23:00 Duloxetine HCl (Cymbalta) 20 mg DAILY PO Last administered on 11/13/16 09:49; Admin Dose 20 MG; Start 09/27/16 at 09:00 Zolpidem Tartrate (Ambien) 5 mg QHS PRN PO INSOMNIA Last administered on 20:23; Admin Dose 5 MG; Start 09/26/16 at 23:00 Collagenase (Santyl) 1 applic DAILY TOP Last administered on 11/11/16 10:16; Admin Dose 1 APPLIC; Start 09/27/16 at 09:00 Collagenase (Santyl) 1 applic PRN PRN TOP SOILED OR DISLODGED DRESSING; Start 09/27/16 at 05:00 Lansoprazole (Prevacid) 30 mg DAILY@06 GTB Last administered on 11/13/16 05:24 ; Admin Dose 30 MG; Start 09/28/16 at 06:00 Cromolyn Sodium (Nasalcrom) 1 spray QID NASAL Last administered on 11/13/16 20 :42; Admin Dose 1 SPRAY; Start 09/29/16 at 11:02 Phenol (Cepastat Lozenge) 1 lozenge Q2H PRN MT SORE THROAT Last administered on 11/02/16 01:02; Admin Dose 1 LOZENGE; Start 10/01/16 at 19:00 IV Flush (NS 10 ml) 10 ml PRN PRN IV IV PROTOCOL Last administered on 08:08; Admin Dose 10 ML; Start 10/02/16 at 19:00 Lactobacillus Acidophilus (Florajen3 Capsule) 1 each TID PO Last administered on 11/13/16 20:42; Admin Dose 1 EACH; Start 10/03/16 at 21:00 Hydromorphone HCl (Dilaudid) 0.5 mg Q4H PRN IV PAIN Last administered on 20:43; Admin Dose 0.5 MG; Start 10/06/16 at 18:30 Promethazine HCl/ Codeine (Phenergan/ Codeine) 10 ml BID PRN PO COUGH Last administered on 11/12/16 11:10; Admin Dose 10 ML; Start 10/07/16 at 20:30 Potassium Chloride (Potassium Chloride Pwd/Soln) 20 meq DAILY GTB Last administered on 11/13/16 09:50; Admin Dose 20 MEQ; Start 10/30/16 at 12:00 Alprazolam (Xanax) 0.5 mg Q12H PRN PO ANXIETY Last administered on 11/13/16 11 :18; Admin Dose 0.5 MG; Start 11/08/16 at 20:30 Metronidazole 500 mg 500 mg Q8 PO Last administered on 11/13/16 21:54; Admin Dose 500 MG; Start 11/10/16 at 14:00 Dextrose/Sodium Chloride 1,000 ml @ 75 mls/hr [id number] IV Last administered on 11/13/16 11:12; Admin Dose 75 MLS/HR; Start 11/12/16 at 04:30 Norepinephrine/ Dextrose (Levophed/D5W) 500 ml @ 1.87 mls/hr TITRATE IV Last administered on 11/13/16 15:58; Admin Dose 3.75 MLS/HR; Start 11/12/16 at 04:30 Amikacin Sulfate AMIKACIN PER PHARMACY NOTE XX ; Start 11/12/16 at 16:00 Amikacin Sulfate/ Sodium Chloride (Amikacin/NS) 102.8 ml @ 102 mls/hr Q36H IVPB Last administered on 11/12/16 18:59; Admin Dose 102 MLS/HR; Start at 18:30 Metoprolol Tartrate 25 mg 25 mg Q6 PRN GTB For HR > 130 Last administered on 15:41; Admin Dose 25 MG; Start 11/12/16 at 22:30 Vancomycin HCl (Vancocin) 100 ml @ 100 mls/hr Q12H IVPB Last administered on 21:55; Admin Dose 100 MLS/HR; Start 11/13/16 at 10:00 DYLLAN CARRION MD November 13, 2016 23:44
[2016-11-14] VITALS (105 sets, daily range): BP systolic 65–152; BP diastolic 52–117; PULSE 106–182; RESP 18–58
[2016-11-14] MEDS: DEXTROSE 5%-0.45% NACL 1,000 ML IV SCH ×3 (01:50→17:49)
[2016-11-14] MEDS: METOPROLOL 25 MG TAB GTB PRN (01:50)
[2016-11-14] MEDS: ALBUTEROL/IPRATROPIUM (NEB) 3 ML AMP NEB PRN (04:49)
[2016-11-14 05:38] LABS: AADO2 Arterial 158.5 mmHg (7.0-24.0); Allen Test ACCEPTAB; Arterial Base Excess 1.6 mmol/L (-3.0-3); Arterial COHb 0.3 % (0.0-3.0); Arterial Fraction of Oxyhgb 93.3 % (93.0-99.0); Arterial HCO3 27.2 mmol/L (22.0-26.0); Arterial MetHb 0.3 % (0.0-1.5); Arterial Total Hemglobin 10.7 g/dl (12.0-18.0); MODE VENTI MASK
[2016-11-14 05:49] LABS: AADO2 Arterial 159.6 mmHg (7.0-24.0); Allen Test ACCEPTAB; Arterial Base Excess 1.9 mmol/L (-3.0-3); Arterial COHb 0.2 % (0.0-3.0); Arterial HCO3 27.6 mmol/L (22.0-26.0); Arterial MetHb 0.3 % (0.0-1.5); Arterial Total Hemglobin 10.7 g/dl (12.0-18.0); MODE VENTI MASK
[2016-11-14] MEDS: metroNIDAZOLE 500 MG TAB PO SCH ×3 (06:10→21:54)
[2016-11-14] MEDS: LANSOPRAZOLE 30 MG CAP GTB SCH (06:10)
[2016-11-14] MEDS: SOD CHLORIDE 0.9% IVPB SCH (06:12)
[2016-11-14] MEDS: AMIKACIN IVPB SCH (06:12)
[2016-11-14 06:19] LABS: ADD SCAN DIFF NO
[2016-11-14 06:25] LABS: ABNORMAL IP MESSAGE 1; BASOPHIL # 0.1 10^3/ul (0.0-0.1); BASOPHILS % 0.6 % (0.0-2.0); EOSINOPHILS # 0.5 10^3/ul (0.0-0.5); EOSINOPHILS % 2.5 % (0.0-7.0); HEMATOCRIT 32.1 % (37.0-47.0); HEMOGLOBIN 9.3 g/dl (12.0-16.0); LYMPHOCYTES # 2.3 10^3/ul (0.8-2.9); LYMPHOCYTES % 12.3 % (15.0-51.0); MEAN CORPUSCULAR HEMOGLOBIN 26.5 pg (29.0-33.0); MEAN CORPUSCULAR VOLUME 91.5 fl (82.0-101.0); MEAN PLATELET VOLUME 9.9 fl (7.4-10.4); MONOCYTE # 1.7 10^3/ul (0.3-0.9); NEUTROPHIL # 14.2 10^3/ul (1.6-7.5); PLATELET COUNT 478 10^3/UL (140-415); RED BLOOD COUNT 3.51 10^6/ul (4.20-5.40); RED CELL DISTRIBUTION WIDTH 18.3 % (11.5-14.5); WHITE BLOOD COUNT 18.9 10^3/ul (4.8-10.8)
[2016-11-14 06:53] LABS: ALBUMIN 2.5 g/dl (3.3-4.9); ALBUMIN/GLOBULIN RATIO 0.46; CALCIUM 9.2 mg/dl (8.4-10.2); CREATININE 0.47 mg/dl (0.44-1.00); POTASSIUM 4.1 mmol/L (3.5-5.1); TOTAL PROTEIN 7.9 g/dl (6.1-8.1)
[2016-11-14] MEDS: L ACIDOPHIL/B LACTIS/B LONGUM CAPSULE PO SCH ×3 (09:08→21:17)
[2016-11-14] MEDS: DIAZEPAM 5 MG TAB PO SCH (09:08)
[2016-11-14] MEDS: POTASSIUM CHLORIDE 20 MEQ POWDER FOR ORAL SOLN GTB SCH (09:08)
[2016-11-14] MEDS: DULOXETINE 20 MG CAP DR PO SCH (09:08)
[2016-11-14] MEDS: HYDROmorphONE 1 MG/ML SYG IV PRN ×4 (09:09→21:54)
[2016-11-14] MEDS: COLLAGENASE 30 GM TUBE TOP SCH (09:09)
[2016-11-14] MEDS: ASCORBIC ACID 500 MG TAB PO SCH ×2 (09:09→21:17)
[2016-11-14] MEDS: LEVOTHYROXINE 125 MCG TAB PO SCH (09:09)
[2016-11-14] MEDS: CROMOLYN 4% 26ML NAS INH NASAL SCH ×4 (09:10→21:17)
[2016-11-14] MEDS: VANCOMYCIN 500MG/NS (PMX) 100 ML IVPB SCH ×2 (10:49→23:40)
--- NOTE | 2016-11-14 12:08 | CONS ---
Date/Time of Note Date/Time of Note DATE: 11/14/16 TIME: 12:04 Assessment/Plan Assessment/Plan Additional Assessment/Plan Assessment recommendations; next 1. Patient admitted for anemia no undergoing COPD exacerbation with hypoxemic and hypercapnic respiratory failure doing fairly well on BiPAP. 2. Lung cancer involving left lower lobe. 3. Very poor overall clinical condition. 4. Sacral decubitus ulcer. Continue current treatment. CODE STATUS needs to be clarified with the family. Prognosis is poor. Consultation Date/Type/Reason Admit Date/Time Sep 26, 2016 at 20:07 Date of Consultation: November 14, 2016 Type of Consultation: Pulmonary critical care Reason for Consultation Pulmonary consultations requested for evaluation of hypoxemic respiratory failure. History of present illness; patient is a 66-year-old F [place] lady who was admitted on the of last month with complaints of shortness of breath the patient has had a very prolonged stay in the hospital because of anemia. Patient now is experiencing increasing shortness of breath and has been admitted to ICU started on BiPAP with significant improvement in respiratory status. The patient had significant clinical deterioration yesterday and at one point intubation was contemplated but the patient did well on BiPAP. By the time I saw the patient the patient is on BiPAP and is responsive and answering questions appropriately and follows simple commands. Past medical history; 1. History of lung cancer number next 2. Severe COPD 3. History of multiple sacral decubitus ulcers. 4. Patient had a prolonged stay at acute rehab at [place]. Medications; reviewed Allergies; penicillin, aspirin and ibuprofen. Social history; patient does have a remote history of smoking. No history of alcohol abuse. Family history; patient is single she does have a daughter. 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 Review of systems; limited review system could be obtained as patient is on BiPAP. Patient is reporting decreased shortness of breath, denies any chest pain, any abdominal pain, nausea and vomiting. General exam; elderly lady, appears quite emaciated, on BiPAP. Currently in no distress. Constitutional: requiring O2 Eyes: no complaints ENT: no complaints Respiratory: no complaints Cardiovascular: no complaints Gastrointestinal: no complaints Genitourinary: no complaints Musculoskeletal: back pain Skin: no complaints Neurologic: no complaints Endocrine: no complaints Lymphatic: no complaints Psychological: no complaints Social History Alcohol Use: none Smoking Status: Smoker,current status unk Drug Use: none Exam/Review of Systems Vital Signs Vitals Vital Signs Date Time Temp Pulse Resp B/P Pulse Ox O2 Delivery O2 Flow Rate FiO2 11/14/16 11:37 123 98 50 11/14/16 08:45 44 118/86 11/14/16 08:00 98.8 BIPAP 11/14/16 06:15 12.0 Intake and Output 11/13/16 11/13/16 11/14/16 15:00 23:00 07:00 Intake Total 1125.600 ml 1281.22 ml 1103.35 ml Output Total 840 ml 690 ml 410 ml Balance 285.600 ml 591.22 ml 693.35 ml Exam HEENT exam is; supple neck, no JVD. No lymphadenopathy. Midline trachea. No thyromegaly. Patient does have multiple carious teeth. Has bilateral intraocular lens implants. Chest exam; diminished breath sounds throughout. S1-S2 audible, no murmurs. Regular rhythm. Abdomen exam is; soft, no organomegaly. G-tube in place. Bowel sounds audible. Back exam; dressing applied over sacrum. Extremity examination; no peripheral edema. PRODUCT SAFETY LEAD examination; patient is awake and alert and follows commands and moves all 4 extremities. Results Result Diagram: 11/14/1615 11/14/1615 Results 24 hrs Laboratory Tests Test 11/13/16 12:23 11/14/16 05:15 11/14/16 05:20 11/14/16 05:43 Lab Scanned Report REFERENCE LAB White Blood Count 18.9 H Red Blood Count 3.51 L Hemoglobin 9.3 L Hematocrit 32.1 L Mean Corpuscular Volume 91.5 Mean Corpuscular Hemoglobin 26.5 L Mean Corpuscular Hemoglobin Concent 29.0 L Red Cell Distribution Width 18.3 H Platelet Count 478 H Mean Platelet Volume 9.9 Neutrophils % 75.0 Lymphocytes % 12.3 L Monocytes % 9.0 Eosinophils % 2.5 Basophils % 0.6 Nucleated Red Blood Cells % 0.0 Neutrophils # 14.2 H Lymphocytes # 2.3 Monocytes # 1.7 H Eosinophils # 0.5 Basophils # 0.1 Nucleated Red Blood Cells # 0.0 Sodium Level 139 Potassium Level 4.1 Chloride Level 106 Carbon Dioxide Level 28 Anion Gap 9 Blood Urea Nitrogen 21 H Creatinine 0.47 Glucose Level 140 Calcium Level 9.2 Total Bilirubin 0.0 L Direct Bilirubin 0.00 Indirect Bilirubin 0.0 Aspartate Amino Transf (AST/SGOT) 72 H Alanine Aminotransferase (ALT/SGPT) 81 H Alkaline Phosphatase 341 H Total Protein 7.9 Albumin 2.5 L Globulin 5.40 H Albumin/Globulin Ratio 0.46 Blood Gas Specimen Source Blood arterial Blood arterial Arterial Blood Date Drawn 11/14/2016 5:15:02 AM 11/14/2016 5:40:19 AM Arterial Blood pH (Temp corrected) 7.376 7.374 Arterial Blood pCO2 (Temp correct) 47.5 H 48.4 H Arterial Blood pO2 (Temp corrected) 72.1 L 69.9 L Arterial Blood HCO3 27.2 H 27.6 H Arterial Blood Base Excess 1.6 1.9 Arterial Blood Oxygen Saturation 93.9 L 93.5 L Nader Test ACCEPTAB ACCEPTAB Arterial Blood Gas Puncture Site Left Radial Right Radial Arterial Blood Carboxyhemoglobin 0.3 0.2 Arterial Blood Methemoglobin 0.3 0.3 Blood Gas A-a O2 Differential 158.5 H 159.6 H Oxyhemoglobin Percent 93.3 93.0 Total Hemoglobin 10.7 L 10.7 L Blood Gas Temperature 37.0 37.0 Blood Gas Modality VENTI MASK VENTI MASK FiO2 40.0 40.0 Blood Gas Notified Whom RTR RTR Blood Gas Notified Time 11/14/2016 5:38:22 AM 11/14/2016 5:49:28 AM Medications Medications Current Medications Ondansetron HCl (Zofran Inj) 4 mg Q6 PRN IV NAUSEA AND/OR VOMITING; Start 09/26 at 22:30 Acetaminophen (Tylenol Tab) 650 mg Q6H PRN PO PAIN AND OR ELEVATED TEMP Last administered on 11/09/16 13:07; Admin Dose 650 MG; Start 09/26/16 at 23:00 Ascorbic Acid (Vitamin C) 500 mg BID PO Last administered on 11/14/16 09:09; Admin Dose 500 MG; Start 09/27/16 at 09:00 Atorvastatin Calcium (Lipitor) 20 mg QHS PO Last administered on 11/13/16 20: 42; Admin Dose 20 MG; Start 09/27/16 at 21:00 Diazepam (Valium) 10 mg DAILY PO Last administered on 11/14/16 09:08; Admin Dose 10 MG; Start 09/27/16 at 09:00 Docusate Sodium (Colace) 100 mg Q12H PRN PO CONSTIPATION Last administered on 09:23; Admin Dose 100 MG; Start 09/26/16 at 23:00 Duloxetine HCl (Cymbalta) 20 mg DAILY PO Last administered on 11/14/16 09:08; Admin Dose 20 MG; Start 09/27/16 at 09:00 Zolpidem Tartrate (Ambien) 5 mg QHS PRN PO INSOMNIA Last administered on 20:23; Admin Dose 5 MG; Start 09/26/16 at 23:00 Collagenase (Santyl) 1 applic DAILY TOP Last administered on 11/14/16 09:09; Admin Dose 1 APPLIC; Start 09/27/16 at 09:00 Collagenase (Santyl) 1 applic PRN PRN TOP SOILED OR DISLODGED DRESSING; Start 09/27/16 at 05:00 Lansoprazole (Prevacid) 30 mg DAILY@06 GTB Last administered on 11/14/16 06:10 ; Admin Dose 30 MG; Start 09/28/16 at 06:00 Cromolyn Sodium (Nasalcrom) 1 spray QID NASAL Last administered on 11/14/16 09 :10; Admin Dose 1 SPRAY; Start 09/29/16 at 11:02 Phenol (Cepastat Lozenge) 1 lozenge Q2H PRN MT SORE THROAT Last administered on 11/02/16 01:02; Admin Dose 1 LOZENGE; Start 10/01/16 at 19:00 IV Flush (NS 10 ml) 10 ml PRN PRN IV IV PROTOCOL Last administered on 08:08; Admin Dose 10 ML; Start 10/02/16 at 19:00 Lactobacillus Acidophilus (Florajen3 Capsule) 1 each TID PO Last administered on 11/14/16 09:08; Admin Dose 1 EACH; Start 10/03/16 at 21:00 Hydromorphone HCl (Dilaudid) 0.5 mg Q4H PRN IV PAIN Last administered on 09:09; Admin Dose 0.5 MG; Start 10/06/16 at 18:30 Promethazine HCl/ Codeine (Phenergan/ Codeine) 10 ml BID PRN PO COUGH Last administered on 11/12/16 11:10; Admin Dose 10 ML; Start 10/07/16 at 20:30 Potassium Chloride (Potassium Chloride Pwd/Soln) 20 meq DAILY GTB Last administered on 11/14/16 09:08; Admin Dose 20 MEQ; Start 10/30/16 at 12:00 Alprazolam (Xanax) 0.5 mg Q12H PRN PO ANXIETY Last administered on 11/13/16 11 :18; Admin Dose 0.5 MG; Start 11/08/16 at 20:30 Metronidazole 500 mg 500 mg Q8 PO Last administered on 11/14/16 06:10; Admin Dose 500 MG; Start 11/10/16 at 14:00 Dextrose/Sodium Chloride 1,000 ml @ 75 mls/hr [id number] IV Last administered on 11/14/16 01:50; Admin Dose 75 MLS/HR; Start 11/12/16 at 04:30 Norepinephrine/ Dextrose (Levophed/D5W) 500 ml @ 1.87 mls/hr TITRATE IV Last administered on 11/13/16 15:58; Admin Dose 3.75 MLS/HR; Start 11/12/16 at 04:30 Amikacin Sulfate AMIKACIN PER PHARMACY NOTE XX ; Start 11/12/16 at 16:00 Amikacin Sulfate/ Sodium Chloride (Amikacin/NS) 102.8 ml @ 102 mls/hr Q36H IVPB Last administered on 11/14/16 06:12; Admin Dose 102 MLS/HR; Start at 18:30 Metoprolol Tartrate 25 mg 25 mg Q6 PRN GTB For HR > 130 Last administered on 01:50; Admin Dose 25 MG; Start 11/12/16 at 22:30 Vancomycin HCl (Vancocin) 100 ml @ 100 mls/hr Q12H IVPB Last administered on 10:49; Admin Dose 100 MLS/HR; Start 11/13/16 at 10:00 Miscellaneous Information (*Rx Drug Level Order Reminder*) 1 ONCE ONCE XX ; Start 11/14/16 at 21:00; Stop 11/14/16 at 21:01 REGINE BUCKLEY November 14, 2016 12:08
--- NOTE | 2016-11-14 12:48 | PN ---
DATE: 11/14/2016 INTERNAL MEDICINE PROGRESS NOTE SUBJECTIVE: Follow up on 66-year-old female patient with chronic obstructive pulmonary disease and lung cancer. The patient was transferred to ICU over the weekend for hypotension, tachycardia and i ncreased respiratory distress. The patient is currently on BiPAP, is awake, alert. The patient con tinues to be tachycardic and tachypneic. No fever reported. No nausea, vomiting. The patient is c urrently on Levophed drip for hypotension. OBJECTIVE: VITAL SIGNS: Temperature is 98.8, pulse is 123, respiratory rate is 41, blood pressure is 118/86, o xygen saturation is 98% on 50% FIO2 via BiPAP. GENERAL: Cachectic female who is currently awake, alert. LUNGS: Diminished air entry bilaterally. HEART: The patient is tachycardic. Normal S1, S2. No murmurs. ABDOMEN: Flat, soft, nondistended. G-tube is present. EXTREMITIES: Normal pulses, no edema. SKIN: The patient has multiple decubitus ulcers including bilateral buttocks and bilateral lower ex tremities. The patient has a wound VAC to sacral decubitus. LABORATORY DATA: Today CBC: White blood cells 18.9, hemoglobin 9.3, hematocrit 32.1, platelets 478 . Chemistry: Sodium is 139, potassium 4.1, chloride 106, carbon dioxide 28, anion gap 9, BUN 21, c reatinine 0.47, glucose 140. AST 72, ALT 81, alkaline phosphatase 341. ASSESSMENT AND PLAN: 1. Acute respiratory insufficiency requiring BiPAP. Dr. Neri is asked to see patient in pulmonolo gy consultation. We will obtain chest x-ray. 2. Left lung squamous carcinoma. The patient is not a candidate for chemotherapy. 3. Acute shock, septic versus hypovolemic. The patient is followed by Dr. Coleman in infectious dis ease consultation. The patient has tachycardia with episode of SVT. Dr. Chairez's group is brittney calix in cardiology consultation. 4. Chronic obstructive pulmonary disease. 5. Dysphagia with G-tube. Continue current G-tube feeding. 6. Hypothyroidism. Continue Synthroid. 7. Anemia of chronic disease. Continue sequential compression devices for deep venous thrombosis prophylaxis and Prevacid for pept ic ulcer disease prophylaxis. Further recommendations based on clinical course. Plan of care discussed with Dr. Lobato. Dictated By: REBECCA ISLAS THERMAL SURFACING MACHINE OPERATOR for DRE LBOATO MD, SR/SANDER Conf#: [id number] DID#: [id number]
--- NOTE | 2016-11-14 13:09 | PN ---
DATE: 11/14/2016 SUBJECTIVE: Patient is awake on BiPAP. She is also on Levophed drip. She is in no distress and af ebrile. VITAL SIGNS: T-max yesterday was 100, T-current 98.8, pulse 123, respirations 40, blood pressure 11 8/86, saturation 98 on 50 FIO2. WBC 18.9, H and H 9.3 and 32.1, platelets 478, neutrophils 75, BUN 21, creatinine 0.47. MICROBIOLOGY: Blood and urine culture since 11/12/2016 remain negative. ANTIMICROBIALS: The patient was started on IV vancomycin and amikacin. She is also on Flagyl. PHYSICAL EXAMINATION: GENERAL: This is a chronically ill-appearing, cachectic, elderly woman who is comfortable on BiPAP. HEENT: Head atraumatic, normocephalic. Sclerae anicteric. Buccal mucosa dry. NECK: Supple, trachea midline. CHEST: Rise symmetrical. Breath sounds diminished to bases. HEART: S1, S2. ABDOMEN: Soft, bowel tones present. EXTREMITIES: Without cyanosis. ASSESSMENT: 1. Severe sepsis with shock and multisystem organ failure. 2. Chronic obstructive pulmonary disease exacerbation and possible pneumonia, possible aspiration e vent. 3. Acute respiratory failure. 4. Lung cancer. 5. Unstageable sacral decubitus, status post debridement with wound VAC application. 6. History of Clostridium difficile colitis. 7. Severe cachexia. PLAN: We are going to change amikacin to meropenem. Continue vancomycin and Flagyl, add empiric an tifungal coverage with Diflucan. Follow pulmonary recommendations. Overall, prognosis poor. Mehrdad parham is FULL CODE. Dictated By: RUBIN MAYEN SHREDDED FILLER MACHINE WRAPPER LAYER for JUAN COLLIER/SANDER Conf#: [id number] DID#: [id number]
--- NOTE | 2016-11-14 13:11 | CONS ---
Date/Time of Note Date/Time of Note DATE: 11/14/16 TIME: 13:09 Assessment/Plan Assessment/Plan Additional Assessment/Plan Sepsis Respiratory failure Intermittent hypotension Diastolic congestive heart failure Pulmonary hypertension Preserved ejection fraction Tricuspid valve regurgitation Lung cancer -Patient with respiratory failure requiring BiPAP, presuming secondary to COPD exacerbation and possibly sepsis. Blood pressure trend overall improved. Fluid management as per our nephrology colleagues. Consultation Date/Type/Reason Admit Date/Time Sep 26, 2016 at 20:07 Type of Consultation: cv Referring Provider: DRE LOBATO MD 24 HR Interval Summary Free Text/Dictation Patient remains on BiPAP Exam/Review of Systems Vital Signs Vitals Vital Signs Date Time Temp Pulse Resp B/P Pulse Ox O2 Delivery O2 Flow Rate FiO2 11/14/16 12:00 122 11/14/16 11:37 98 50 11/14/16 08:45 44 118/86 11/14/16 08:00 98.8 BIPAP 11/14/16 06:15 12.0 Intake and Output 11/13/16 11/13/16 11/14/16 15:00 23:00 07:00 Intake Total 1125.600 ml 1281.22 ml 1103.35 ml Output Total 840 ml 690 ml 410 ml Balance 285.600 ml 591.22 ml 693.35 ml Exam Sleeping, on BiPAP Head: normocephalic Respiratory: other (Coarse breath sounds bilaterally, no wheezing) Cardiovascular: other (S1-S2 heard), regular rate and rhythm Gastrointestinal: bowel sounds, non-tender, soft Extremities: other (No edema) Results Result Diagram: 11/14/16 0515 11/14/16 0515 Results 24 hrs Laboratory Tests Test 11/14/16 05:15 11/14/16 05:20 11/14/16 05:43 White Blood Count 18.9 H Red Blood Count 3.51 L Hemoglobin 9.3 L Hematocrit 32.1 L Mean Corpuscular Volume 91.5 Mean Corpuscular Hemoglobin 26.5 L Mean Corpuscular Hemoglobin Concent 29.0 L Red Cell Distribution Width 18.3 H Platelet Count 478 H Mean Platelet Volume 9.9 Neutrophils % 75.0 Lymphocytes % 12.3 L Monocytes % 9.0 Eosinophils % 2.5 Basophils % 0.6 Nucleated Red Blood Cells % 0.0 Neutrophils # 14.2 H Lymphocytes # 2.3 Monocytes # 1.7 H Eosinophils # 0.5 Basophils # 0.1 Nucleated Red Blood Cells # 0.0 Sodium Level 139 Potassium Level 4.1 Chloride Level 106 Carbon Dioxide Level 28 Anion Gap 9 Blood Urea Nitrogen 21 H Creatinine 0.47 Glucose Level 140 Calcium Level 9.2 Total Bilirubin 0.0 L Direct Bilirubin 0.00 Indirect Bilirubin 0.0 Aspartate Amino Transf (AST/SGOT) 72 H Alanine Aminotransferase (ALT/SGPT) 81 H Alkaline Phosphatase 341 H Total Protein 7.9 Albumin 2.5 L Globulin 5.40 H Albumin/Globulin Ratio 0.46 Blood Gas Specimen Source Blood arterial Blood arterial Arterial Blood Date Drawn 11/14/2016 5:15:02 AM 11/14/2016 5:40:19 AM Arterial Blood pH (Temp corrected) 7.376 7.374 Arterial Blood pCO2 (Temp correct) 47.5 H 48.4 H Arterial Blood pO2 (Temp corrected) 72.1 L 69.9 L Arterial Blood HCO3 27.2 H 27.6 H Arterial Blood Base Excess 1.6 1.9 Arterial Blood Oxygen Saturation 93.9 L 93.5 L Nader Test ACCEPTAB ACCEPTAB Arterial Blood Gas Puncture Site Left Radial Right Radial Arterial Blood Carboxyhemoglobin 0.3 0.2 Arterial Blood Methemoglobin 0.3 0.3 Blood Gas A-a O2 Differential 158.5 H 159.6 H Oxyhemoglobin Percent 93.3 93.0 Total Hemoglobin 10.7 L 10.7 L Blood Gas Temperature 37.0 37.0 Blood Gas Modality VENTI MASK VENTI MASK FiO2 40.0 40.0 Blood Gas Notified Whom RTR RTR Blood Gas Notified Time 11/14/2016 5:38:22 AM 11/14/2016 5:49:28 AM Medications Medications Current Medications Ondansetron HCl (Zofran Inj) 4 mg Q6 PRN IV NAUSEA AND/OR VOMITING; Start 09/26 at 22:30 Acetaminophen (Tylenol Tab) 650 mg Q6H PRN PO PAIN AND OR ELEVATED TEMP Last administered on 11/09/16 13:07; Admin Dose 650 MG; Start 09/26/16 at 23:00 Ascorbic Acid (Vitamin C) 500 mg BID PO Last administered on 11/14/16 09:09; Admin Dose 500 MG; Start 09/27/16 at 09:00 Atorvastatin Calcium (Lipitor) 20 mg QHS PO Last administered on 11/13/16 20: 42; Admin Dose 20 MG; Start 09/27/16 at 21:00 Diazepam (Valium) 10 mg DAILY PO Last administered on 11/14/16 09:08; Admin Dose 10 MG; Start 09/27/16 at 09:00 Docusate Sodium (Colace) 100 mg Q12H PRN PO CONSTIPATION Last administered on 09:23; Admin Dose 100 MG; Start 09/26/16 at 23:00 Duloxetine HCl (Cymbalta) 20 mg DAILY PO Last administered on 11/14/16 09:08; Admin Dose 20 MG; Start 09/27/16 at 09:00 Zolpidem Tartrate (Ambien) 5 mg QHS PRN PO INSOMNIA Last administered on 20:23; Admin Dose 5 MG; Start 09/26/16 at 23:00 Collagenase (Santyl) 1 applic DAILY TOP Last administered on 11/14/16 09:09; Admin Dose 1 APPLIC; Start 09/27/16 at 09:00 Collagenase (Santyl) 1 applic PRN PRN TOP SOILED OR DISLODGED DRESSING; Start 09/27/16 at 05:00 Lansoprazole (Prevacid) 30 mg DAILY@06 GTB Last administered on 11/14/16 06:10 ; Admin Dose 30 MG; Start 09/28/16 at 06:00 Cromolyn Sodium (Nasalcrom) 1 spray QID NASAL Last administered on 11/14/16 09 :10; Admin Dose 1 SPRAY; Start 09/29/16 at 11:02 Phenol (Cepastat Lozenge) 1 lozenge Q2H PRN MT SORE THROAT Last administered on 11/02/16 01:02; Admin Dose 1 LOZENGE; Start 10/01/16 at 19:00 IV Flush (NS 10 ml) 10 ml PRN PRN IV IV PROTOCOL Last administered on 08:08; Admin Dose 10 ML; Start 10/02/16 at 19:00 Lactobacillus Acidophilus (Florajen3 Capsule) 1 each TID PO Last administered on 11/14/16 09:08; Admin Dose 1 EACH; Start 10/03/16 at 21:00 Hydromorphone HCl (Dilaudid) 0.5 mg Q4H PRN IV PAIN Last administered on 12:59; Admin Dose 0.5 MG; Start 10/06/16 at 18:30 Promethazine HCl/ Codeine (Phenergan/ Codeine) 10 ml BID PRN PO COUGH Last administered on 11/12/16 11:10; Admin Dose 10 ML; Start 10/07/16 at 20:30 Potassium Chloride (Potassium Chloride Pwd/Soln) 20 meq DAILY GTB Last administered on 11/14/16 09:08; Admin Dose 20 MEQ; Start 10/30/16 at 12:00 Alprazolam (Xanax) 0.5 mg Q12H PRN PO ANXIETY Last administered on 11/13/16 11 :18; Admin Dose 0.5 MG; Start 11/08/16 at 20:30 Metronidazole 500 mg 500 mg Q8 PO Last administered on 11/14/16 06:10; Admin Dose 500 MG; Start 11/10/16 at 14:00 Dextrose/Sodium Chloride 1,000 ml @ 75 mls/hr [id number] IV Last administered on 11/14/16 01:50; Admin Dose 75 MLS/HR; Start 11/12/16 at 04:30 Norepinephrine/ Dextrose (Levophed/D5W) 500 ml @ 1.87 mls/hr TITRATE IV Last administered on 11/13/16 15:58; Admin Dose 3.75 MLS/HR; Start 11/12/16 at 04:30 Metoprolol Tartrate 25 mg 25 mg Q6 PRN GTB For HR > 130 Last administered on 01:50; Admin Dose 25 MG; Start 11/12/16 at 22:30 Vancomycin HCl (Vancocin) 100 ml @ 100 mls/hr Q12H IVPB Last administered on 10:49; Admin Dose 100 MLS/HR; Start 11/13/16 at 10:00 Miscellaneous Information 1 ONCE ONCE XX ; Start 11/14/16 at 21:00; Stop at 21:01 Meropenem (Merrem 500 Mg/ 100 ml (Pmx)) 100 ml @ 200 mls/hr Q8 IVPB ; Start at 14:00 Fluconazole (Diflucan) 100 mg DAILY PO ; Start 11/14/16 at 13:00 Artemio Tipton DO November 14, 2016 13:11
[2016-11-14] MEDS: MEROPENEM 500 MG/100 ML (PMX) 100 ML IVPB SCH ×2 (14:25→21:17)
[2016-11-14] MEDS: FLUCONAZOLE 100 MG TAB PO SCH (14:25)
--- NOTE | 2016-11-14 15:49 | CONS ---
Date/Time of Note Date/Time of Note DATE: 11/14/16 TIME: 15:46 Assessment/Plan Assessment/Plan Additional Assessment/Plan 1. Hyponatremia, multifactorial - pt likey has Component of SAIDH causing hypoantreia, due to acute on chronic pain 2. Status post acute kidney injury on chronic kidney disease due to systemic inflammatory response syndrome. now improved 3. Sepsis, 4. History of recurrent polymicrobial urinary tract infections. 5. History of dementia. 6. History of previous cerebrovascular accident. 7. History of chronic obstructive pulmonary disease, recently had acute respiratory failure secondary to chronic obstructive pulmonary disease exacerbation. 8. History of urinary retention with a chronic George catheter in place. 9. Chronic debility with cachexia. 10. Multiple decubitus ulcers with debris. Sacrococcygeal ulcer s/p exc boris . 11. History of degenerative joint disease of spine. 12. History of hypertension and hypertensive heart disease with mild to moderate concentric left ventricular hypertrophy and echocardiogram with diastolic dysfunction stage I.EF normal PLAN: sodium chloride table has been discontinued, BP stable, Now na improved to 139 monitor electrolytes Cr normal will follow up Consultation Date/Type/Reason Admit Date/Time Sep 26, 2016 at 20:07 Type of Consultation: NEPHROLOGY Referring Provider: DRE LOBATO MD Exam/Review of Systems Vital Signs Vitals Vital Signs Date Time Temp Pulse Resp B/P Pulse Ox O2 Delivery O2 Flow Rate FiO2 11/14/16 15:06 142 100 50 11/14/16 08:45 44 118/86 11/14/16 08:00 98.8 BIPAP 11/14/16 06:15 12.0 Intake and Output 11/13/16 11/13/16 11/14/16 15:00 23:00 07:00 Intake Total 1125.600 ml 1281.22 ml 1234.60 ml Output Total 840 ml 690 ml 410 ml Balance 285.600 ml 591.22 ml 824.60 ml Exam GENERAL: This is a chronically ill-appearing, cachectic, elderly woman who is comfortable on BiPAP. HEENT: Head atraumatic, normocephalic. Sclerae anicteric. Buccal mucosa dry. NECK: Supple, trachea midline. CHEST: Rise symmetrical. Breath sounds diminished to bases. HEART: S1, S2. ABDOMEN: Soft, bowel tones present. EXTREMITIES: Without cyanosis Results Result Diagram: 11/14/16 0515 11/14/16 0515 Results 24 hrs Laboratory Tests Test 11/14/16 05:15 11/14/16 05:20 11/14/16 05:43 White Blood Count 18.9 H Red Blood Count 3.51 L Hemoglobin 9.3 L Hematocrit 32.1 L Mean Corpuscular Volume 91.5 Mean Corpuscular Hemoglobin 26.5 L Mean Corpuscular Hemoglobin Concent 29.0 L Red Cell Distribution Width 18.3 H Platelet Count 478 H Mean Platelet Volume 9.9 Neutrophils % 75.0 Lymphocytes % 12.3 L Monocytes % 9.0 Eosinophils % 2.5 Basophils % 0.6 Nucleated Red Blood Cells % 0.0 Neutrophils # 14.2 H Lymphocytes # 2.3 Monocytes # 1.7 H Eosinophils # 0.5 Basophils # 0.1 Nucleated Red Blood Cells # 0.0 Sodium Level 139 Potassium Level 4.1 Chloride Level 106 Carbon Dioxide Level 28 Anion Gap 9 Blood Urea Nitrogen 21 H Creatinine 0.47 Glucose Level 140 Calcium Level 9.2 Total Bilirubin 0.0 L Direct Bilirubin 0.00 Indirect Bilirubin 0.0 Aspartate Amino Transf (AST/SGOT) 72 H Alanine Aminotransferase (ALT/SGPT) 81 H Alkaline Phosphatase 341 H Total Protein 7.9 Albumin 2.5 L Globulin 5.40 H Albumin/Globulin Ratio 0.46 Blood Gas Specimen Source Blood arterial Blood arterial Arterial Blood Date Drawn 11/14/2016 5:15:02 AM 11/14/2016 5:40:19 AM Arterial Blood pH (Temp corrected) 7.376 7.374 Arterial Blood pCO2 (Temp correct) 47.5 H 48.4 H Arterial Blood pO2 (Temp corrected) 72.1 L 69.9 L Arterial Blood HCO3 27.2 H 27.6 H Arterial Blood Base Excess 1.6 1.9 Arterial Blood Oxygen Saturation 93.9 L 93.5 L Nader Test ACCEPTAB ACCEPTAB Arterial Blood Gas Puncture Site Left Radial Right Radial Arterial Blood Carboxyhemoglobin 0.3 0.2 Arterial Blood Methemoglobin 0.3 0.3 Blood Gas A-a O2 Differential 158.5 H 159.6 H Oxyhemoglobin Percent 93.3 93.0 Total Hemoglobin 10.7 L 10.7 L Blood Gas Temperature 37.0 37.0 Blood Gas Modality VENTI MASK VENTI MASK FiO2 40.0 40.0 Blood Gas Notified Whom RTR RTR Blood Gas Notified Time 11/14/2016 5:38:22 AM 11/14/2016 5:49:28 AM Medications Medications Current Medications Ondansetron HCl (Zofran Inj) 4 mg Q6 PRN IV NAUSEA AND/OR VOMITING; Start 09/26 at 22:30 Acetaminophen (Tylenol Tab) 650 mg Q6H PRN PO PAIN AND OR ELEVATED TEMP Last administered on 11/09/16 13:07; Admin Dose 650 MG; Start 09/26/16 at 23:00 Ascorbic Acid (Vitamin C) 500 mg BID PO Last administered on 11/14/16 09:09; Admin Dose 500 MG; Start 09/27/16 at 09:00 Atorvastatin Calcium (Lipitor) 20 mg QHS PO Last administered on 11/13/16 20: 42; Admin Dose 20 MG; Start 09/27/16 at 21:00 Diazepam (Valium) 10 mg DAILY PO Last administered on 11/14/16 09:08; Admin Dose 10 MG; Start 09/27/16 at 09:00 Docusate Sodium (Colace) 100 mg Q12H PRN PO CONSTIPATION Last administered on 09:23; Admin Dose 100 MG; Start 09/26/16 at 23:00 Duloxetine HCl (Cymbalta) 20 mg DAILY PO Last administered on 11/14/16 09:08; Admin Dose 20 MG; Start 09/27/16 at 09:00 Zolpidem Tartrate (Ambien) 5 mg QHS PRN PO INSOMNIA Last administered on 20:23; Admin Dose 5 MG; Start 09/26/16 at 23:00 Collagenase (Santyl) 1 applic DAILY TOP Last administered on 11/14/16 09:09; Admin Dose 1 APPLIC; Start 09/27/16 at 09:00 Collagenase (Santyl) 1 applic PRN PRN TOP SOILED OR DISLODGED DRESSING; Start 09/27/16 at 05:00 Lansoprazole (Prevacid) 30 mg DAILY@06 GTB Last administered on 11/14/16 06:10 ; Admin Dose 30 MG; Start 09/28/16 at 06:00 Cromolyn Sodium (Nasalcrom) 1 spray QID NASAL Last administered on 11/14/16 09 :10; Admin Dose 1 SPRAY; Start 09/29/16 at 11:02 Phenol (Cepastat Lozenge) 1 lozenge Q2H PRN MT SORE THROAT Last administered on 11/02/16 01:02; Admin Dose 1 LOZENGE; Start 10/01/16 at 19:00 IV Flush (NS 10 ml) 10 ml PRN PRN IV IV PROTOCOL Last administered on 08:08; Admin Dose 10 ML; Start 10/02/16 at 19:00 Lactobacillus Acidophilus (Florajen3 Capsule) 1 each TID PO Last administered on 11/14/16 14:25; Admin Dose 1 EACH; Start 10/03/16 at 21:00 Hydromorphone HCl (Dilaudid) 0.5 mg Q4H PRN IV PAIN Last administered on 12:59; Admin Dose 0.5 MG; Start 10/06/16 at 18:30 Promethazine HCl/ Codeine (Phenergan/ Codeine) 10 ml BID PRN PO COUGH Last administered on 11/12/16 11:10; Admin Dose 10 ML; Start 10/07/16 at 20:30 Potassium Chloride (Potassium Chloride Pwd/Soln) 20 meq DAILY GTB Last administered on 11/14/16 09:08; Admin Dose 20 MEQ; Start 10/30/16 at 12:00 Alprazolam (Xanax) 0.5 mg Q12H PRN PO ANXIETY Last administered on 11/13/16 11 :18; Admin Dose 0.5 MG; Start 11/08/16 at 20:30 Metronidazole 500 mg 500 mg Q8 PO Last administered on 11/14/16 14:25; Admin Dose 500 MG; Start 11/10/16 at 14:00 Dextrose/Sodium Chloride 1,000 ml @ 75 mls/hr [id number] IV Last administered on 11/14/16 01:50; Admin Dose 75 MLS/HR; Start 11/12/16 at 04:30 Norepinephrine/ Dextrose (Levophed/D5W) 500 ml @ 1.87 mls/hr TITRATE IV Last administered on 11/14/16 15:29; Admin Dose 22.5 MLS/HR; Start 11/12/16 at 04:30 Metoprolol Tartrate 25 mg 25 mg Q6 PRN GTB For HR > 130 Last administered on 01:50; Admin Dose 25 MG; Start 11/12/16 at 22:30 Vancomycin HCl (Vancocin) 100 ml @ 100 mls/hr Q12H IVPB Last administered on 10:49; Admin Dose 100 MLS/HR; Start 11/13/16 at 10:00 Miscellaneous Information 1 ONCE ONCE XX ; Start 11/14/16 at 21:00; Stop at 21:01 Meropenem (Merrem 500 Mg/ 100 ml (Pmx)) 100 ml @ 200 mls/hr Q8 IVPB Last administered on 11/14/16 14:25; Admin Dose 200 MLS/HR; Start 11/14/16 at 14:00 Fluconazole (Diflucan) 100 mg DAILY PO Last administered on 11/14/16 14:25; Admin Dose 100 MG; Start 11/14/16 at 13:00 DIONNE SAUCEDA MD November 14, 2016 15:49
[2016-11-14] MEDS: ATORVASTATIN 20 MG TAB PO SCH (21:17)
--- NOTE | 2016-11-14 22:43 | CONS ---
Date/Time of Note Date/Time of Note DATE: 11/14/16 TIME: 22:37 Assessment/Plan Assessment/Plan Chief Complaint/Hosp Course Left lung squamous carcinoma. The patient is not a candidate for chemotherapy. Anemia of chronic disease. monitor blood count closely transfuse as needed to keep HB above 8 Acute respiratory insufficiency requiring BiPAP. Acute shock, septic versus hypovolemic. tachycardia with episode of SVT. Chronic obstructive pulmonary disease. Dysphagia with G-tube. Continue current G-tube feeding. Hypothyroidism. Continue Synthroid. Problems: Consultation Date/Type/Reason Admit Date/Time Sep 26, 2016 at 20:07 Initial Consult Date 10/19/16 Type of Consultation: [facility] Referring Provider: DRE LOBATO MD 24 HR Interval Summary Free Text/Dictation The patient was transferred to ICU over the weekend for hypotension, tachycardia and increased respiratory distress. The patient is currently on BiPAP, is awake, alert. The patient continues to be tachycardic and tachypneic. No fever reported. No nausea, vomiting. The patient is currently on Levophed drip for hypotension. Exam/Review of Systems Vital Signs Vitals Vital Signs Date Time Temp Pulse Resp B/P Pulse Ox O2 Delivery O2 Flow Rate FiO2 11/14/16 22:00 136 30 114/76 99 BIPAP 11/14/16 21:31 50 11/14/16 20:00 99.3 11/14/16 06:15 12.0 Intake and Output 11/13/16 11/13/16 11/14/16 15:00 23:00 07:00 Intake Total 1125.600 ml 1281.22 ml 1234.60 ml Output Total 840 ml 690 ml 410 ml Balance 285.600 ml 591.22 ml 824.60 ml Exam GENERAL: Cachectic female who is currently awake, alert. LUNGS: Diminished air entry bilaterally. HEART: The patient is tachycardic. Normal S1, S2. No murmurs. ABDOMEN: Flat, soft, nondistended. G-tube is present. EXTREMITIES: Normal pulses, no edema. SKIN: The patient has multiple decubitus ulcers including bilateral buttocks and bilateral lower extremities. The patient has a wound VAC to sacral decubitus. Results Result Diagram: 11/14/16 0515 11/14/16 0515 Results 24 hrs Laboratory Tests Test 11/14/16 05:15 11/14/16 05:20 11/14/16 05:43 11/14/16 21:00 White Blood Count 18.9 H Red Blood Count 3.51 L Hemoglobin 9.3 L Hematocrit 32.1 L Mean Corpuscular Volume 91.5 Mean Corpuscular Hemoglobin 26.5 L Mean Corpuscular Hemoglobin Concent 29.0 L Red Cell Distribution Width 18.3 H Platelet Count 478 H Mean Platelet Volume 9.9 Neutrophils % 75.0 Lymphocytes % 12.3 L Monocytes % 9.0 Eosinophils % 2.5 Basophils % 0.6 Nucleated Red Blood Cells % 0.0 Neutrophils # 14.2 H Lymphocytes # 2.3 Monocytes # 1.7 H Eosinophils # 0.5 Basophils # 0.1 Nucleated Red Blood Cells # 0.0 Sodium Level 139 Potassium Level 4.1 Chloride Level 106 Carbon Dioxide Level 28 Anion Gap 9 Blood Urea Nitrogen 21 H Creatinine 0.47 Glucose Level 140 Calcium Level 9.2 Total Bilirubin 0.0 L Direct Bilirubin 0.00 Indirect Bilirubin 0.0 Aspartate Amino Transf (AST/SGOT) 72 H Alanine Aminotransferase (ALT/SGPT) 81 H Alkaline Phosphatase 341 H Total Protein 7.9 Albumin 2.5 L Globulin 5.40 H Albumin/Globulin Ratio 0.46 Blood Gas Specimen Source Blood arterial Blood arterial Arterial Blood Date Drawn 11/14/2016 5:15:02 AM 11/14/2016 5:40:19 AM Arterial Blood pH (Temp corrected) 7.376 7.374 Arterial Blood pCO2 (Temp correct) 47.5 H 48.4 H Arterial Blood pO2 (Temp corrected) 72.1 L 69.9 L Arterial Blood HCO3 27.2 H 27.6 H Arterial Blood Base Excess 1.6 1.9 Arterial Blood Oxygen Saturation 93.9 L 93.5 L Nader Test ACCEPTAB ACCEPTAB Arterial Blood Gas Puncture Site Left Radial Right Radial Arterial Blood Carboxyhemoglobin 0.3 0.2 Arterial Blood Methemoglobin 0.3 0.3 Blood Gas A-a O2 Differential 158.5 H 159.6 H Oxyhemoglobin Percent 93.3 93.0 Total Hemoglobin 10.7 L 10.7 L Blood Gas Temperature 37.0 37.0 Blood Gas Modality VENTI MASK VENTI MASK FiO2 40.0 40.0 Blood Gas Notified Whom RTR RTR Blood Gas Notified Time 11/14/2016 5:38:22 AM 11/14/2016 5:49:28 AM Vancomycin Level Trough 9.8 L Medications Medications Current Medications Ondansetron HCl (Zofran Inj) 4 mg Q6 PRN IV NAUSEA AND/OR VOMITING; Start 09/26 at 22:30 Acetaminophen (Tylenol Tab) 650 mg Q6H PRN PO PAIN AND OR ELEVATED TEMP Last administered on 11/09/16 13:07; Admin Dose 650 MG; Start 09/26/16 at 23:00 Ascorbic Acid (Vitamin C) 500 mg BID PO Last administered on 11/14/16 21:17; Admin Dose 500 MG; Start 09/27/16 at 09:00 Atorvastatin Calcium (Lipitor) 20 mg QHS PO Last administered on 11/14/16 21: 17; Admin Dose 20 MG; Start 09/27/16 at 21:00 Diazepam (Valium) 10 mg DAILY PO Last administered on 11/14/16 09:08; Admin Dose 10 MG; Start 09/27/16 at 09:00 Docusate Sodium (Colace) 100 mg Q12H PRN PO CONSTIPATION Last administered on 09:23; Admin Dose 100 MG; Start 09/26/16 at 23:00 Duloxetine HCl (Cymbalta) 20 mg DAILY PO Last administered on 11/14/16 09:08; Admin Dose 20 MG; Start 09/27/16 at 09:00 Zolpidem Tartrate (Ambien) 5 mg QHS PRN PO INSOMNIA Last administered on 20:23; Admin Dose 5 MG; Start 09/26/16 at 23:00 Collagenase (Santyl) 1 applic DAILY TOP Last administered on 11/14/16 09:09; Admin Dose 1 APPLIC; Start 09/27/16 at 09:00 Collagenase (Santyl) 1 applic PRN PRN TOP SOILED OR DISLODGED DRESSING; Start 09/27/16 at 05:00 Lansoprazole (Prevacid) 30 mg DAILY@06 GTB Last administered on 11/14/16 06:10 ; Admin Dose 30 MG; Start 09/28/16 at 06:00 Cromolyn Sodium (Nasalcrom) 1 spray QID NASAL Last administered on 11/14/16 21 :17; Admin Dose 1 SPRAY; Start 09/29/16 at 11:02 Phenol (Cepastat Lozenge) 1 lozenge Q2H PRN MT SORE THROAT Last administered on 11/02/16 01:02; Admin Dose 1 LOZENGE; Start 10/01/16 at 19:00 IV Flush (NS 10 ml) 10 ml PRN PRN IV IV PROTOCOL Last administered on 08:08; Admin Dose 10 ML; Start 10/02/16 at 19:00 Lactobacillus Acidophilus (Florajen3 Capsule) 1 each TID PO Last administered on 11/14/16 21:17; Admin Dose 1 EACH; Start 10/03/16 at 21:00 Hydromorphone HCl (Dilaudid) 0.5 mg Q4H PRN IV PAIN Last administered on 21:54; Admin Dose 0.5 MG; Start 10/06/16 at 18:30 Promethazine HCl/ Codeine (Phenergan/ Codeine) 10 ml BID PRN PO COUGH Last administered on 11/12/16 11:10; Admin Dose 10 ML; Start 10/07/16 at 20:30 Potassium Chloride (Potassium Chloride Pwd/Soln) 20 meq DAILY GTB Last administered on 11/14/16 09:08; Admin Dose 20 MEQ; Start 10/30/16 at 12:00 Alprazolam (Xanax) 0.5 mg Q12H PRN PO ANXIETY Last administered on 11/13/16 11 :18; Admin Dose 0.5 MG; Start 11/08/16 at 20:30 Metronidazole 500 mg 500 mg Q8 PO Last administered on 11/14/16 21:54; Admin Dose 500 MG; Start 11/10/16 at 14:00 Dextrose/Sodium Chloride 1,000 ml @ 75 mls/hr [id number] IV Last administered on 11/14/16 17:49; Admin Dose 75 MLS/HR; Start 11/12/16 at 04:30 Norepinephrine/ Dextrose (Levophed/D5W) 500 ml @ 1.87 mls/hr TITRATE IV Last administered on 11/14/16 15:29; Admin Dose 22.5 MLS/HR; Start 11/12/16 at 04:30 Metoprolol Tartrate 25 mg 25 mg Q6 PRN GTB For HR > 130 Last administered on 01:50; Admin Dose 25 MG; Start 11/12/16 at 22:30 Vancomycin HCl 100 ml @ 100 mls/hr Q12H IVPB Last administered on 11/14/16 10 :49; Admin Dose 100 MLS/HR; Start 11/13/16 at 10:00 Meropenem (Merrem 500 Mg/ 100 ml (Pmx)) 100 ml @ 200 mls/hr Q8 IVPB Last administered on 11/14/16 21:17; Admin Dose 200 MLS/HR; Start 11/14/16 at 14:00 Fluconazole (Diflucan) 100 mg DAILY PO Last administered on 11/14/16 14:25; Admin Dose 100 MG; Start 11/14/16 at 13:00 DYLLAN CARRION MD November 14, 2016 22:43
[2016-11-15] VITALS (102 sets, daily range): BP systolic 73–131; BP diastolic 61–102; PULSE 97–147; RESP 21–39
[2016-11-15] MEDS: METOPROLOL 25 MG TAB GTB PRN ×2 (00:05→21:09)
[2016-11-15] MEDS: HYDROmorphONE 1 MG/ML SYG IV PRN ×5 (02:27→19:43)
[2016-11-15] MEDS: LANSOPRAZOLE 30 MG CAP GTB SCH (05:38)
[2016-11-15] MEDS: metroNIDAZOLE 500 MG TAB PO SCH ×3 (05:38→21:09)
[2016-11-15] MEDS: MEROPENEM 500 MG/100 ML (PMX) 100 ML IVPB SCH ×3 (05:38→21:09)
[2016-11-15 06:12] LABS: ADD SCAN DIFF NO
[2016-11-15 06:13] LABS: ABNORMAL IP MESSAGE 1; BASOPHIL # 0.1 10^3/ul (0.0-0.1); BASOPHILS % 0.6 % (0.0-2.0); EOSINOPHILS # 0.5 10^3/ul (0.0-0.5); EOSINOPHILS % 2.9 % (0.0-7.0); HEMATOCRIT 28.2 % (37.0-47.0); HEMOGLOBIN 8.1 g/dl (12.0-16.0); LYMPHOCYTES # 1.8 10^3/ul (0.8-2.9); LYMPHOCYTES % 9.7 % (15.0-51.0); MEAN CORPUSCULAR HEMOGLOBIN 26.2 pg (29.0-33.0); MEAN CORPUSCULAR HGB CONC 28.7 g/dl (32.0-37.0); MEAN CORPUSCULAR VOLUME 91.3 fl (82.0-101.0); MEAN PLATELET VOLUME 9.6 fl (7.4-10.4); MONOCYTE # 1.6 10^3/ul (0.3-0.9); NEUTROPHILS % 77.1 % (39.0-77.0); PLATELET COUNT 453 10^3/UL (140-415); RED BLOOD COUNT 3.09 10^6/ul (4.20-5.40); RED CELL DISTRIBUTION WIDTH 18.1 % (11.5-14.5); WHITE BLOOD COUNT 18.2 10^3/ul (4.8-10.8)
[2016-11-15 06:30] LABS: MONOCYTES % 8.9 % (0.0-11.0)
[2016-11-15] MEDS: LEVOTHYROXINE 125 MCG TAB PO SCH (06:36)
[2016-11-15 06:39] LABS: ALBUMIN 2.7 g/dl (3.3-4.9); ALBUMIN/GLOBULIN RATIO 0.57; CALCIUM 8.5 mg/dl (8.4-10.2); CREATININE 0.43 mg/dl (0.44-1.00); TOTAL PROTEIN 7.4 g/dl (6.1-8.1)
[2016-11-15 08:14] LABS: AADO2 Arterial 190.5 mmHg (7.0-24.0); Allen Test ACCEPTAB; Arterial Base Excess 1.7 mmol/L (-3.0-3); Arterial COHb 0.3 % (0.0-3.0); Arterial Fraction of Oxyhgb 97.2 % (93.0-99.0); Arterial HCO3 27.5 mmol/L (22.0-26.0); Arterial MetHb 0.5 % (0.0-1.5); Arterial Total Hemglobin 9.8 g/dl (12.0-18.0); Blood Gas IEPAP 15/5; MODE MASK - BIPAP
[2016-11-15] MEDS: L ACIDOPHIL/B LACTIS/B LONGUM CAPSULE PO SCH ×3 (08:28→20:33)
[2016-11-15] MEDS: DULOXETINE 20 MG CAP DR PO SCH (08:28)
[2016-11-15] MEDS: FLUCONAZOLE 100 MG TAB PO SCH (08:28)
[2016-11-15] MEDS: COLLAGENASE 30 GM TUBE TOP SCH (08:28)
[2016-11-15] MEDS: POTASSIUM CHLORIDE 20 MEQ POWDER FOR ORAL SOLN GTB SCH (08:28)
[2016-11-15] MEDS: DIAZEPAM 5 MG TAB PO SCH (08:29)
[2016-11-15] MEDS: CROMOLYN 4% 26ML NAS INH NASAL SCH ×4 (08:29→20:33)
[2016-11-15] MEDS: ASCORBIC ACID 500 MG TAB PO SCH ×2 (08:29→20:33)
[2016-11-15] MEDS: DEXTROSE 5%-0.45% NACL 1,000 ML IV SCH ×2 (09:20→12:30)
[2016-11-15] MEDS: VANCOMYCIN 750 MG in SOD CHLORIDE 0.9% 150 ML IVPB SCH ×2 (09:57→21:09)
--- NOTE | 2016-11-15 11:30 | CONS ---
Date/Time of Note Date/Time of Note DATE: 11/15/16 TIME: 11:27 Assessment/Plan Assessment/Plan Additional Assessment/Plan BiPAP settings; IPAP of 15, EPAP of 5, 50% FiO2. ABG from this morning was reviewed. Assessment and recommendations; 1. Patient admitted for sacral wound sepsis 2. Respiratory failure with mild hypercapnia, currently doing well on BiPAP. 3. History of left lung cancer 4. Poor overall physical condition. 5. Underlying COPD. Continue current treatment. Prognosis is poor. Consultation Date/Type/Reason Admit Date/Time Sep 26, 2016 at 20:07 Initial Consult Date 11/14/16 Type of Consultation: Pulmonary/critical care Referring Provider: DRE LOBATO MD 24 HR Interval Summary Free Text/Dictation Patient condition is tenuous at best. Still requiring BiPAP continuously. Patient however is completely awake and alert and follows commands and moves all 4 extremities on command. Has remained hemodynamically stable. General exam; elderly woman, awake currently in no distress. Exam/Review of Systems Vital Signs Vitals Vital Signs Date Time Temp Pulse Resp B/P Pulse Ox O2 Delivery O2 Flow Rate FiO2 11/15/16 11:18 111 96 50 11/15/16 10:45 33 121/92 BIPAP 11/15/16 07:00 98.2 11/14/16 06:15 12.0 Intake and Output 11/14/16 11/14/16 11/15/16 15:00 23:00 07:00 Intake Total 1599.125 ml 1520.305 ml 1202.50 ml Output Total 520 ml 725 ml 615 ml Balance 1079.125 ml 795.305 ml 587.50 ml Exam HEENT exam is; BiPAP in place. With a full facemask. Pupils are small bilaterally. Patient has a multiple carious teeth. No neck masses. Chest examined; diminished breath sounds bilaterally. No added sound. S1-S2 audible, no murmurs. There are multiple well-healed scars involving the upper right chest wall. Abdomen exam; soft, G-tube in place. No organomegaly. Abdomen is nondistended. Bowel sounds audible. Back examination reveals wound VAC applied over sacrum. Draining copious amounts of fluid. Extremity exam; no peripheral edema. BURLESQUE DANCER examination; no focal motor deficit. Results Result Diagram: 11/15/16 0500 11/15/16 0500 Results 24 hrs Laboratory Tests Test 11/14/16 21:00 11/15/16 05:00 11/15/16 07:00 Vancomycin Level Trough 9.8 L White Blood Count 18.2 H Red Blood Count 3.09 L Hemoglobin 8.1 L Hematocrit 28.2 L Mean Corpuscular Volume 91.3 Mean Corpuscular Hemoglobin 26.2 L Mean Corpuscular Hemoglobin Concent 28.7 L Red Cell Distribution Width 18.1 H Platelet Count 453 H Mean Platelet Volume 9.6 Neutrophils % 77.1 H Lymphocytes % 9.7 L Monocytes % 8.9 Eosinophils % 2.9 Basophils % 0.6 Nucleated Red Blood Cells % 0.0 Neutrophils # 14.0 H Lymphocytes # 1.8 Monocytes # 1.6 H Eosinophils # 0.5 Basophils # 0.1 Nucleated Red Blood Cells # 0.0 Sodium Level 134 L Potassium Level 4.0 Chloride Level 102 Carbon Dioxide Level 28 Anion Gap 8 Blood Urea Nitrogen 19 Creatinine 0.43 L Glucose Level 140 Calcium Level 8.5 Total Bilirubin 0.0 L Direct Bilirubin 0.00 Indirect Bilirubin 0.0 Aspartate Amino Transf (AST/SGOT) 56 H Alanine Aminotransferase (ALT/SGPT) 64 Alkaline Phosphatase 285 H Total Protein 7.4 Albumin 2.7 L Globulin 4.70 H Albumin/Globulin Ratio 0.57 Blood Gas Specimen Source Blood arterial Arterial Blood Date Drawn 11/15/2016 7:40:47 AM Arterial Blood pH (Temp corrected) 7.364 Arterial Blood pCO2 (Temp correct) 49.4 H Arterial Blood pO2 (Temp corrected) 110.4 H Arterial Blood HCO3 27.5 H Arterial Blood Base Excess 1.7 Arterial Blood Oxygen Saturation 98.0 Nader Test ACCEPTAB Arterial Blood Gas Puncture Site Right Radial Arterial Blood Carboxyhemoglobin 0.3 Arterial Blood Methemoglobin 0.5 Blood Gas A-a O2 Differential 190.5 H Oxyhemoglobin Percent 97.2 Total Hemoglobin 9.8 L Blood Gas Temperature 37.0 Blood Gas Respiration Rate 20.0 Blood Gas Actual Respiration Rate 33 Blood Gas Modality MASK - BIPAP FiO2 50.0 Blood Gas IPAP/EPAP Ratio 15/5 Blood Gas Notified Whom JLD Blood Gas Notified Time 11/15/2016 8:14:29 AM Medications Medications Current Medications Ondansetron HCl (Zofran Inj) 4 mg Q6 PRN IV NAUSEA AND/OR VOMITING; Start 09/26 at 22:30 Acetaminophen (Tylenol Tab) 650 mg Q6H PRN PO PAIN AND OR ELEVATED TEMP Last administered on 11/09/16 13:07; Admin Dose 650 MG; Start 09/26/16 at 23:00 Ascorbic Acid (Vitamin C) 500 mg BID PO Last administered on 11/15/16 08:29; Admin Dose 500 MG; Start 09/27/16 at 09:00 Atorvastatin Calcium (Lipitor) 20 mg QHS PO Last administered on 11/14/16 21: 17; Admin Dose 20 MG; Start 09/27/16 at 21:00 Diazepam (Valium) 10 mg DAILY PO Last administered on 11/15/16 08:29; Admin Dose 10 MG; Start 09/27/16 at 09:00 Docusate Sodium (Colace) 100 mg Q12H PRN PO CONSTIPATION Last administered on 09:23; Admin Dose 100 MG; Start 09/26/16 at 23:00 Duloxetine HCl (Cymbalta) 20 mg DAILY PO Last administered on 11/15/16 08:28; Admin Dose 20 MG; Start 09/27/16 at 09:00 Zolpidem Tartrate (Ambien) 5 mg QHS PRN PO INSOMNIA Last administered on 20:23; Admin Dose 5 MG; Start 09/26/16 at 23:00 Collagenase (Santyl) 1 applic DAILY TOP Last administered on 11/15/16 08:28; Admin Dose 1 APPLIC; Start 09/27/16 at 09:00 Collagenase (Santyl) 1 applic PRN PRN TOP SOILED OR DISLODGED DRESSING; Start 09/27/16 at 05:00 Lansoprazole (Prevacid) 30 mg DAILY@06 GTB Last administered on 11/15/16 05:38 ; Admin Dose 30 MG; Start 09/28/16 at 06:00 Cromolyn Sodium (Nasalcrom) 1 spray QID NASAL Last administered on 11/15/16 08 :29; Admin Dose 1 SPRAY; Start 09/29/16 at 11:02 Phenol (Cepastat Lozenge) 1 lozenge Q2H PRN MT SORE THROAT Last administered on 11/02/16 01:02; Admin Dose 1 LOZENGE; Start 10/01/16 at 19:00 IV Flush (NS 10 ml) 10 ml PRN PRN IV IV PROTOCOL Last administered on 08:08; Admin Dose 10 ML; Start 10/02/16 at 19:00 Lactobacillus Acidophilus (Florajen3 Capsule) 1 each TID PO Last administered on 11/15/16 08:28; Admin Dose 1 EACH; Start 10/03/16 at 21:00 Hydromorphone HCl (Dilaudid) 0.5 mg Q4H PRN IV PAIN Last administered on 10:59; Admin Dose 0.5 MG; Start 10/06/16 at 18:30 Promethazine HCl/ Codeine (Phenergan/ Codeine) 10 ml BID PRN PO COUGH Last administered on 11/12/16 11:10; Admin Dose 10 ML; Start 10/07/16 at 20:30 Potassium Chloride (Potassium Chloride Pwd/Soln) 20 meq DAILY GTB Last administered on 11/15/16 08:28; Admin Dose 20 MEQ; Start 10/30/16 at 12:00 Alprazolam (Xanax) 0.5 mg Q12H PRN PO ANXIETY Last administered on 11/13/16 11 :18; Admin Dose 0.5 MG; Start 11/08/16 at 20:30 Metronidazole 500 mg 500 mg Q8 PO Last administered on 11/15/16 05:38; Admin Dose 500 MG; Start 11/10/16 at 14:00 Dextrose/Sodium Chloride 1,000 ml @ 75 mls/hr [id number] IV Last administered on 11/15/16 09:20; Admin Dose 75 MLS/HR; Start 11/12/16 at 04:30 Norepinephrine/ Dextrose (Levophed/D5W) 500 ml @ 1.87 mls/hr TITRATE IV Last administered on 11/14/16 15:29; Admin Dose 22.5 MLS/HR; Start 11/12/16 at 04:30 Metoprolol Tartrate 25 mg 25 mg Q6 PRN GTB For HR > 130 Last administered on 00:05; Admin Dose 25 MG; Start 11/12/16 at 22:30 Meropenem (Merrem 500 Mg/ 100 ml (Pmx)) 100 ml @ 200 mls/hr Q8 IVPB Last administered on 11/15/16 05:38; Admin Dose 200 MLS/HR; Start 11/14/16 at 14:00 Fluconazole 100 mg 100 mg DAILY PO Last administered on 11/15/16 08:28; Admin Dose 100 MG; Start 11/14/16 at 13:00 Vancomycin HCl/ Sodium Chloride (Vancocin/NS) 150 ml @ 75 mls/hr Q12H IVPB Last administered on 11/15/16 09:57; Admin Dose 75 MLS/HR; Start 11/15/16 at 10 :00 REGINE BUCKLEY November 15, 2016 11:30
--- NOTE | 2016-11-15 13:29 | PN ---
Date/Time of Note Date/Time of Note DATE: 11/15/16 TIME: 13:28 Assessment/Plan VTE Prophylaxis VTE Prophylaxis Intervention: SCD's Lines/Catheters IV C[facility] Type [facility] PICC Line Central line still needed: No Urinary Cath still in place: Yes Reason Cath still needed: urinary retention Assessment/Plan Chief Complaint/Hosp Course Patient is a 66-year-old female with anemia and cancer presents for anemia and leukocytosis. The patient was sent by Dr. Dozier from [facility] for admission. The patient said that she was "not feeling well all weekend". She was brought in by ambulance. She said that she had a fever but did not check her temperature. She has had cough and urinary symptoms as well as sore throat. The patient had peristent hypotension but no sycnope and remains stabe with no chest pain and no overt CHF Problems: Assessment/Plan Sepsis Respiratory failure Intermittent hypotension Diastolic congestive heart failure Pulmonary hypertension Preserved ejection fraction Tricuspid valve regurgitation Lung cancer -Patient with respiratory failure requiring BiPAP, presuming secondary to COPD exacerbation and possibly sepsis. Blood pressure trend overall improved. Fluid management as per our nephrology colleagues. -on pressor support Subjective 24 Hr Interval Summary Free Text/Dictation the patient with no cahnge Exam/Review of Systems Vital Signs Vitals Vital Signs Date Time Temp Pulse Resp B/P Pulse Ox O2 Delivery O2 Flow Rate FiO2 11/15/16 12:30 115 22 118/95 97 BIPAP 11/15/16 12:00 97.7 11/15/16 11:18 50 11/14/16 06:15 12.0 Intake and Output 11/14/16 11/14/16 11/15/16 15:00 23:00 07:00 Intake Total 1599.125 ml 1520.305 ml 1388.75 ml Output Total 520 ml 725 ml 615 ml Balance 1079.125 ml 795.305 ml 773.75 ml Results Result Diagram: 11/15/16 0500 11/15/16 0500 Results 24 hrs Laboratory Tests Test 11/14/16 21:00 11/15/16 05:00 11/15/16 07:00 Vancomycin Level Trough 9.8 L White Blood Count 18.2 H Red Blood Count 3.09 L Hemoglobin 8.1 L Hematocrit 28.2 L Mean Corpuscular Volume 91.3 Mean Corpuscular Hemoglobin 26.2 L Mean Corpuscular Hemoglobin Concent 28.7 L Red Cell Distribution Width 18.1 H Platelet Count 453 H Mean Platelet Volume 9.6 Neutrophils % 77.1 H Lymphocytes % 9.7 L Monocytes % 8.9 Eosinophils % 2.9 Basophils % 0.6 Nucleated Red Blood Cells % 0.0 Neutrophils # 14.0 H Lymphocytes # 1.8 Monocytes # 1.6 H Eosinophils # 0.5 Basophils # 0.1 Nucleated Red Blood Cells # 0.0 Sodium Level 134 L Potassium Level 4.0 Chloride Level 102 Carbon Dioxide Level 28 Anion Gap 8 Blood Urea Nitrogen 19 Creatinine 0.43 L Glucose Level 140 Calcium Level 8.5 Total Bilirubin 0.0 L Direct Bilirubin 0.00 Indirect Bilirubin 0.0 Aspartate Amino Transf (AST/SGOT) 56 H Alanine Aminotransferase (ALT/SGPT) 64 Alkaline Phosphatase 285 H Total Protein 7.4 Albumin 2.7 L Globulin 4.70 H Albumin/Globulin Ratio 0.57 Blood Gas Specimen Source Blood arterial Arterial Blood Date Drawn 11/15/2016 7:40:47 AM Arterial Blood pH (Temp corrected) 7.364 Arterial Blood pCO2 (Temp correct) 49.4 H Arterial Blood pO2 (Temp corrected) 110.4 H Arterial Blood HCO3 27.5 H Arterial Blood Base Excess 1.7 Arterial Blood Oxygen Saturation 98.0 Nader Test ACCEPTAB Arterial Blood Gas Puncture Site Right Radial Arterial Blood Carboxyhemoglobin 0.3 Arterial Blood Methemoglobin 0.5 Blood Gas A-a O2 Differential 190.5 H Oxyhemoglobin Percent 97.2 Total Hemoglobin 9.8 L Blood Gas Temperature 37.0 Blood Gas Respiration Rate 20.0 Blood Gas Actual Respiration Rate 33 Blood Gas Modality MASK - BIPAP FiO2 50.0 Blood Gas IPAP/EPAP Ratio 15 Blood Gas Notified Whom JLD Blood Gas Notified Time 11/15/2016 8:14:29 AM Medications Medications Current Medications Ondansetron HCl (Zofran Inj) 4 mg Q6 PRN IV NAUSEA AND/OR VOMITING; Start 09/26 at 22:30 Acetaminophen (Tylenol Tab) 650 mg Q6H PRN PO PAIN AND OR ELEVATED TEMP Last administered on 11/09/16 13:07; Admin Dose 650 MG; Start 09/26/16 at 23:00 Ascorbic Acid (Vitamin C) 500 mg BID PO Last administered on 11/15/16 08:29; Admin Dose 500 MG; Start 09/27/16 at 09:00 Atorvastatin Calcium (Lipitor) 20 mg QHS PO Last administered on 11/14/16 21: 17; Admin Dose 20 MG; Start 09/27/16 at 21:00 Diazepam (Valium) 10 mg DAILY PO Last administered on 11/15/16 08:29; Admin Dose 10 MG; Start 09/27/16 at 09:00 Docusate Sodium (Colace) 100 mg Q12H PRN PO CONSTIPATION Last administered on 09:23; Admin Dose 100 MG; Start 09/26/16 at 23:00 Duloxetine HCl (Cymbalta) 20 mg DAILY PO Last administered on 11/15/16 08:28; Admin Dose 20 MG; Start 09/27/16 at 09:00 Zolpidem Tartrate (Ambien) 5 mg QHS PRN PO INSOMNIA Last administered on 20:23; Admin Dose 5 MG; Start 09/26/16 at 23:00 Collagenase (Santyl) 1 applic DAILY TOP Last administered on 11/15/16 08:28; Admin Dose 1 APPLIC; Start 09/27/16 at 09:00 Collagenase (Santyl) 1 applic PRN PRN TOP SOILED OR DISLODGED DRESSING; Start 09/27/16 at 05:00 Lansoprazole (Prevacid) 30 mg DAILY@06 GTB Last administered on 11/15/16 05:38 ; Admin Dose 30 MG; Start 09/28/16 at 06:00 Cromolyn Sodium (Nasalcrom) 1 spray QID NASAL Last administered on 11/15/16 08 :29; Admin Dose 1 SPRAY; Start 09/29/16 at 11:02 Phenol (Cepastat Lozenge) 1 lozenge Q2H PRN MT SORE THROAT Last administered on 11/02/16 01:02; Admin Dose 1 LOZENGE; Start 10/01/16 at 19:00 IV Flush (NS 10 ml) 10 ml PRN PRN IV IV PROTOCOL Last administered on 08:08; Admin Dose 10 ML; Start 10/02/16 at 19:00 Lactobacillus Acidophilus (Florajen3 Capsule) 1 each TID PO Last administered on 11/15/16 08:28; Admin Dose 1 EACH; Start 10/03/16 at 21:00 Hydromorphone HCl (Dilaudid) 0.5 mg Q4H PRN IV PAIN Last administered on 10:59; Admin Dose 0.5 MG; Start 10/06/16 at 18:30 Promethazine HCl/ Codeine (Phenergan/ Codeine) 10 ml BID PRN PO COUGH Last administered on 11/12/16 11:10; Admin Dose 10 ML; Start 10/07/16 at 20:30 Potassium Chloride (Potassium Chloride Pwd/Soln) 20 meq DAILY GTB Last administered on 11/15/16 08:28; Admin Dose 20 MEQ; Start 10/30/16 at 12:00 Alprazolam (Xanax) 0.5 mg Q12H PRN PO ANXIETY Last administered on 11/13/16 11 :18; Admin Dose 0.5 MG; Start 11/08/16 at 20:30 Metronidazole 500 mg 500 mg Q8 PO Last administered on 11/15/16 05:38; Admin Dose 500 MG; Start 11/10/16 at 14:00 Dextrose/Sodium Chloride 1,000 ml @ 75 mls/hr [id number] IV Last administered on 11/15/16 09:20; Admin Dose 75 MLS/HR; Start 11/12/16 at 04:30 Norepinephrine/ Dextrose (Levophed/D5W) 500 ml @ 1.87 mls/hr TITRATE IV Last administered on 11/14/16 15:29; Admin Dose 22.5 MLS/HR; Start 11/12/16 at 04:30 Metoprolol Tartrate 25 mg 25 mg Q6 PRN GTB For HR > 130 Last administered on 00:05; Admin Dose 25 MG; Start 11/12/16 at 22:30 Meropenem (Merrem 500 Mg/ 100 ml (Pmx)) 100 ml @ 200 mls/hr Q8 IVPB Last administered on 11/15/16 05:38; Admin Dose 200 MLS/HR; Start 11/14/16 at 14:00 Fluconazole 100 mg 100 mg DAILY PO Last administered on 11/15/16 08:28; Admin Dose 100 MG; Start 5/30/17 at 13:00 Vancomycin HCl/ Sodium Chloride (Vancocin/NS) 150 ml @ 75 mls/hr Q12H IVPB Last administered on 11/15/16t 09:57; Admin Dose 75 MLS/HR; Start 11/15/16 at 10 :00 RALPH LUCAS MD November 15, 2016 13:28
--- NOTE | 2016-11-15 14:21 | PN ---
DATE: 11/15/2016 SUBJECTIVE: No acute changes overnight. No fevers. The patient is awake, comfortable on BiPAP, st ill on Levophed drip. VITAL SIGNS: Temperature 97.7, pulse 115, respirations 22, blood pressure 118/95, saturation 97% on BiPAP. LABORATORY DATA: WBC 18.2, H and H 8.1 and 28.2, platelets 453, neutrophils 77.1, no bands. BUN 19 , creatinine 0.43. INDWELLINGS: George, PICC line, G-tube. ANTIMICROBIALS: The patient is on: 1. IV vancomycin. 2. Fluconazole. 3. Meropenem. 4. Flagyl p.o. PHYSICAL EXAMINATION: GENERAL: This is a cachectic, elderly -Greek woman, who is lying comfortably in bed. HEENT: Head atraumatic, normocephalic. Sclerae anicteric. Buccal mucosa dry. NECK: Supple, trachea midline. CHEST: Rise symmetrical. Breath sounds with bilateral rhonchi. HEART: S1, S2. ABDOMEN: Soft, bowel sounds present. EXTREMITIES: Wasted without cyanosis. ASSESSMENT: 1. Sepsis with shock and multisystem organ failure. 2. Lung cancer. 3. Acute respiratory failure, rule out aspiration, rule out healthcare-associated pneumonia. 4. Sacral decubitus, status post debridement with wound VAC application. 5. History of Clostridium difficile colitis. 6. Severe cachexia with failure to thrive. PLAN: Continue present care, antibiotics. Check chest x-ray. Follow recommendations of plan consultant s. Overall prognosis poor. Dictated By: RUBIN MAYEN REPORTS ANALYSIS MANAGER for JUAN COLLIER/SANDER Conf#: [id number] DID#: [id number]
--- NOTE | 2016-11-15 15:19 | RADRPT ---
PROCEDURE: XR Chest. CLINICAL INDICATION: Anemia. TECHNIQUE: Single frontal view of the chest was obtained. COMPARISON: Chest x-ray 08/30/2016 07:59 a.m. FINDINGS: The soft tissues are normal. There are degenerative osteophytes in the thoracic spine. A PICC line catheter enters right arm with its tip along the medial aspect of the right subclavian vein. The heart is enlarged. The cardiomediastinal silhouette and hilar structures are normal. The pulmonary vasculature is normal. There are vascular calcifications in the aortic arch. There are consolidati ve infiltrates in the left lower lobe. The convex nodular density seen along the upper left heart b order is unchanged. There are vague infiltrates in the right perihilar area and right lower lobe. There is a plate-like density near the right hilum. The costophrenic angles are normal. IMPRESSION: 1. Left ventricular enlargement. 2. Worsening consolidative infiltrate in the left lower lobe with persistent interstitial infiltrat es in the right hilar area and right lower lobe. The ovoid density seen along the upper left heart border is unchanged. A CT chest is recommended for further evaluation as a mass could present this fashion. 3. A PICC line catheter is now in place with its tip inferior to the medial right clavicle. 4. Atherosclerotic vascular disease. 5. Pulmonary hyperinflation. RPTAT:AAJJ Physician Irving Date Time Electronically viewed and signed by To Lorenz Physician on 11/15/2016 15:19 QUENTIN/
--- NOTE | 2016-11-15 15:54 | PN ---
DATE: 11/15/2016 INTERNAL MEDICINE PROGRESS NOTE SUBJECTIVE: Follow up on chronic obstructive pulmonary disease and lung cancer. The patient contin ued on Levophed for blood pressure support. The patient is currently on BiPAP. He remains slightly tachycardic and tachypneic. No fever, nausea, vomiting, per nurse. OBJECTIVE: VITAL SIGNS: Temperature is 97.7, pulse is 106, blood pressure 115/80, respiratory rate 29, oxygen saturation 99% on BiPAP with 50% FIO2. GENERAL: Cachectic female, currently awake. NECK: Supple. LUNGS: Diminished air entry bilaterally. HEART: Normal S1, S2. No murmurs. The patient is tachycardic. ABDOMEN: Flat, soft, nondistended, nontender. G-tube with intact stoma. EXTREMITIES: Normal pulses, no edema. SKIN: There are multiple decubitus ulcers including bilateral buttocks and bilateral lower extremit ies. The patient has a wound VAC to sacral decubitus wound. LABORATORY DATA: Today, CBC: White blood cells 18.2, hemoglobin 8.1, hematocrit 28.2, platelet cou nt 453. Chemistry: Sodium is 134, potassium 4.0, chloride 102, carbon dioxide 28, anion gap 8, BUN is 19, creatinine 0.43, glucose 140. ASSESSMENT AND PLAN: 1. Septic versus hypovolemic shock. Dr. Coleman is following an infectious disease consultation. C ontinue antibiotics per ID. Dr. Chairez's group is following in cardiology consultation. Continue L evophed for blood pressure support and ICU care. 2. Acute respiratory failure requiring BiPAP. Dr. Neri is following patient in pulmonology [facility]. 3. Possible acute chronic bronchitis per chest x-ray. 4. Left lung squamous carcinoma. 5. Chronic obstructive pulmonary disease. 6. Dysphagia with G-tube. 7. Hypothyroidism. 8. Anemia of chronic disease. 9. Multiple wounds. 10. Failure to thrive. We will continue Prevacid for peptic ulcer disease prophylaxis and sequential compression device for deep venous thrombosis prophylaxis. Further recommendations based on clinical course. Plan of car e discussed with Dr. Lobato. Dictated By: REBECCA ISLAS CHEMICAL PREPARER for DRE LOBATO MD SR/NTS Conf#: [id number] DID#: [id number]
--- NOTE | 2016-11-15 17:42 | CONS ---
Date/Time of Note Date/Time of Note DATE: 11/15/16 TIME: 17:41 Assessment/Plan Assessment/Plan Additional Assessment/Plan 1. Hyponatremia, multifactorial - pt likey has Component of SAIDH causing hypoantreia, due to acute on chronic pain 2. Status post acute kidney injury on chronic kidney disease due to systemic inflammatory response syndrome. now improved 3. Sepsis, 4. History of recurrent polymicrobial urinary tract infections. 5. History of dementia. 6. History of previous cerebrovascular accident. 7. History of chronic obstructive pulmonary disease, recently had acute respiratory failure secondary to chronic obstructive pulmonary disease exacerbation. 8. History of urinary retention with a chronic George catheter in place. 9. Chronic debility with cachexia. 10. Multiple decubitus ulcers with debris. Sacrococcygeal ulcer s/p exc boris . 11. History of degenerative joint disease of spine. 12. History of hypertension and hypertensive heart disease with mild to moderate concentric left ventricular hypertrophy and echocardiogram with diastolic dysfunction stage I.EF normal PLAN: pt remained on BIPAP, pulmonary has been follwing on patient sodium chloride table has been discontinued Na 134 today monitor electrolytes Cr normal will follow up Consultation Date/Type/Reason Admit Date/Time Sep 26, 2016 at 20:07 Type of Consultation: NEPHROLOGY Referring Provider: DRE LOBATO MD 24 HR Interval Summary Free Text/Dictation pt remained on BIPAP< BP labile Exam/Review of Systems Vital Signs Vitals Vital Signs Date Time Temp Pulse Resp B/P Pulse Ox O2 Delivery O2 Flow Rate FiO2 11/15/16 17:17 127 97 50 11/15/16 17:15 27 100/75 BIPAP 11/15/16 12:00 97.7 11/14/16 06:15 12.0 Intake and Output 11/14/16 11/14/16 11/15/16 15:00 23:00 07:00 Intake Total 1599.125 ml 1520.305 ml 1388.75 ml Output Total 520 ml 725 ml 615 ml Balance 1079.125 ml 795.305 ml 773.75 ml Results Result Diagram: 11/15/16 0500 11/15/16 0500 Results 24 hrs Laboratory Tests Test 11/14/16 21:00 11/15/16 05:00 11/15/16 07:00 Vancomycin Level Trough 9.8 L White Blood Count 18.2 H Red Blood Count 3.09 L Hemoglobin 8.1 L Hematocrit 28.2 L Mean Corpuscular Volume 91.3 Mean Corpuscular Hemoglobin 26.2 L Mean Corpuscular Hemoglobin Concent 28.7 L Red Cell Distribution Width 18.1 H Platelet Count 453 H Mean Platelet Volume 9.6 Neutrophils % 77.1 H Lymphocytes % 9.7 L Monocytes % 8.9 Eosinophils % 2.9 Basophils % 0.6 Nucleated Red Blood Cells % 0.0 Neutrophils # 14.0 H Lymphocytes # 1.8 Monocytes # 1.6 H Eosinophils # 0.5 Basophils # 0.1 Nucleated Red Blood Cells # 0.0 Sodium Level 134 L Potassium Level 4.0 Chloride Level 102 Carbon Dioxide Level 28 Anion Gap 8 Blood Urea Nitrogen 19 Creatinine 0.43 L Glucose Level 140 Calcium Level 8.5 Total Bilirubin 0.0 L Direct Bilirubin 0.00 Indirect Bilirubin 0.0 Aspartate Amino Transf (AST/SGOT) 56 H Alanine Aminotransferase (ALT/SGPT) 64 Alkaline Phosphatase 285 H Total Protein 7.4 Albumin 2.7 L Globulin 4.70 H Albumin/Globulin Ratio 0.57 Blood Gas Specimen Source Blood arterial Arterial Blood Date Drawn 11/15/2016 7:40:47 AM Arterial Blood pH (Temp corrected) 7.364 Arterial Blood pCO2 (Temp correct) 49.4 H Arterial Blood pO2 (Temp corrected) 110.4 H Arterial Blood HCO3 27.5 H Arterial Blood Base Excess 1.7 Arterial Blood Oxygen Saturation 98.0 Nader Test ACCEPTAB Arterial Blood Gas Puncture Site Right Radial Arterial Blood Carboxyhemoglobin 0.3 Arterial Blood Methemoglobin 0.5 Blood Gas A-a O2 Differential 190.5 H Oxyhemoglobin Percent 97.2 Total Hemoglobin 9.8 L Blood Gas Temperature 37.0 Blood Gas Respiration Rate 20.0 Blood Gas Actual Respiration Rate 33 Blood Gas Modality MASK - BIPAP FiO2 50.0 Blood Gas IPAP/EPAP Ratio 15 Blood Gas Notified Whom JLD Blood Gas Notified Time 11/15/2016 8:14:29 AM Medications Medications Current Medications Ondansetron HCl (Zofran Inj) 4 mg Q6 PRN IV NAUSEA AND/OR VOMITING; Start 09/26 at 22:30 Acetaminophen (Tylenol Tab) 650 mg Q6H PRN PO PAIN AND OR ELEVATED TEMP Last administered on 11/09/16t 13:07; Admin Dose 650 MG; Start 09/26/16 at 23:00 Ascorbic Acid (Vitamin C) 500 mg BID PO Last administered on 11/15/16 08:29; Admin Dose 500 MG; Start 09/27/16 at 09:00 Atorvastatin Calcium (Lipitor) 20 mg QHS PO Last administered on 11/14/16 21: 17; Admin Dose 20 MG; Start 09/27/16 at 21:00 Diazepam (Valium) 10 mg DAILY PO Last administered on 11/15/16 08:29; Admin Dose 10 MG; Start 09/27/16 at 09:00 Docusate Sodium (Colace) 100 mg Q12H PRN PO CONSTIPATION Last administered on 09:23; Admin Dose 100 MG; Start 09/26/16 at 23:00 Duloxetine HCl (Cymbalta) 20 mg DAILY PO Last administered on 11/15/16 08:28; Admin Dose 20 MG; Start 09/27/16 at 09:00 Zolpidem Tartrate (Ambien) 5 mg QHS PRN PO INSOMNIA Last administered on 20:23; Admin Dose 5 MG; Start 09/26/16 at 23:00 Collagenase (Santyl) 1 applic DAILY TOP Last administered on 11/15/16 08:28; Admin Dose 1 APPLIC; Start 09/27/16 at 09:00 Collagenase (Santyl) 1 applic PRN PRN TOP SOILED OR DISLODGED DRESSING; Start 09/27/16 at 05:00 Lansoprazole (Prevacid) 30 mg DAILY@06 GTB Last administered on 11/15/16 05:38 ; Admin Dose 30 MG; Start 09/28/16 at 06:00 Cromolyn Sodium (Nasalcrom) 1 spray QID NASAL Last administered on 11/15/16 17 :14; Admin Dose 1 SPRAY; Start 09/29/16 at 11:02 Phenol (Cepastat Lozenge) 1 lozenge Q2H PRN MT SORE THROAT Last administered on 11/02/16 01:02; Admin Dose 1 LOZENGE; Start 10/01/16 at 19:00 IV Flush (NS 10 ml) 10 ml PRN PRN IV IV PROTOCOL Last administered on 08:08; Admin Dose 10 ML; Start 10/02/16 at 19:00 Lactobacillus Acidophilus (Florajen3 Capsule) 1 each TID PO Last administered on 11/15/16 13:30; Admin Dose 1 EACH; Start 10/03/16 at 21:00 Hydromorphone HCl (Dilaudid) 0.5 mg Q4H PRN IV PAIN Last administered on 15:20; Admin Dose 0.5 MG; Start 10/06/16 at 18:30 Promethazine HCl/ Codeine (Phenergan/ Codeine) 10 ml BID PRN PO COUGH Last administered on 11/12/16 11:10; Admin Dose 10 ML; Start 10/07/16 at 20:30 Potassium Chloride (Potassium Chloride Pwd/Soln) 20 meq DAILY GTB Last administered on 11/15/16 08:28; Admin Dose 20 MEQ; Start 10/30/16 at 12:00 Alprazolam (Xanax) 0.5 mg Q12H PRN PO ANXIETY Last administered on 11/13/16 11 :18; Admin Dose 0.5 MG; Start 11/08/16 at 20:30 Metronidazole 500 mg 500 mg Q8 PO Last administered on 11/15/16 13:30; Admin Dose 500 MG; Start 11/10/16 at 14:00 Dextrose/Sodium Chloride 1,000 ml @ 75 mls/hr [id number] IV Last administered on 11/15/16 09:20; Admin Dose 75 MLS/HR; Start 11/12/16 at 04:30 Norepinephrine/ Dextrose (Levophed/D5W) 500 ml @ 1.87 mls/hr TITRATE IV Last administered on 11/14/16 15:29; Admin Dose 22.5 MLS/HR; Start 11/12/16 at 04:30 Metoprolol Tartrate 25 mg 25 mg Q6 PRN GTB For HR > 130 Last administered on 00:05; Admin Dose 25 MG; Start 11/12/16 at 22:30 Meropenem (Merrem 500 Mg/ 100 ml (Pmx)) 100 ml @ 200 mls/hr Q8 IVPB Last administered on 11/15/16 14:12; Admin Dose 200 MLS/HR; Start 11/14/16 at 14:00 Fluconazole 100 mg 100 mg DAILY PO Last administered on 11/15/16 08:28; Admin Dose 100 MG; Start 11/14/16 at 13:00 Vancomycin HCl/ Sodium Chloride (Vancocin/NS) 150 ml @ 75 mls/hr Q12H IVPB Last administered on 11/15/16 09:57; Admin Dose 75 MLS/HR; Start 11/15/16 at 10 :00 DIONNE SAUCEDA MD November 15, 2016 17:42
[2016-11-15] MEDS: ALPRAZOLAM 0.25 MG TAB PO PRN (17:49)
[2016-11-15] MEDS: ATORVASTATIN 20 MG TAB PO SCH (20:33)
--- NOTE | 2016-11-15 21:20 | CONS ---
Date/Time of Note Date/Time of Note DATE: 11/15/16 TIME: 21:19 Assessment/Plan Assessment/Plan Chief Complaint/Hosp Course Left lung squamous carcinoma. The patient is not a candidate for chemotherapy. Anemia of chronic disease. monitor blood count closely transfuse as needed to keep HB above 8 Acute respiratory insufficiency requiring BiPAP. Acute shock, septic versus hypovolemic. tachycardia with episode of SVT. Chronic obstructive pulmonary disease. Dysphagia with G-tube. Continue current G-tube feeding. Hypothyroidism. Continue Synthroid. Problems: Consultation Date/Type/Reason Admit Date/Time Sep 26, 2016 at 20:07 Initial Consult Date 10/19/16 Type of Consultation: [facility] Referring Provider: DRE LOBATO MD 24 HR Interval Summary Free Text/Dictation pt remained on BIPAP Exam/Review of Systems Vital Signs Vitals Vital Signs Date Time Temp Pulse Resp B/P Pulse Ox O2 Delivery O2 Flow Rate FiO2 11/15/16 20:45 133 39 95/80 100 BIPAP 11/15/16 20:00 100.1 11/15/16 17:17 50 11/14/16 06:15 12.0 Intake and Output 11/14/16 11/14/16 11/15/16 15:00 23:00 07:00 Intake Total 1599.125 ml 1520.305 ml 1388.75 ml Output Total 520 ml 725 ml 615 ml Balance 1079.125 ml 795.305 ml 773.75 ml Exam GENERAL: Cachectic female, currently awake. NECK: Supple. LUNGS: Diminished air entry bilaterally. HEART: Normal S1, S2. No murmurs. The patient is tachycardic. ABDOMEN: Flat, soft, nondistended, nontender. G-tube with intact stoma. EXTREMITIES: Normal pulses, no edema. SKIN: There are multiple decubitus ulcers including bilateral buttocks and bilateral lower extremities. The patient has a wound VAC to sacral decubitus wound. Results Result Diagram: 11/15/16 0500 11/15/16 0500 Results 24 hrs Laboratory Tests Test 11/15/16 05:00 11/15/16 07:00 White Blood Count 18.2 H Red Blood Count 3.09 L Hemoglobin 8.1 L Hematocrit 28.2 L Mean Corpuscular Volume 91.3 Mean Corpuscular Hemoglobin 26.2 L Mean Corpuscular Hemoglobin Concent 28.7 L Red Cell Distribution Width 18.1 H Platelet Count 453 H Mean Platelet Volume 9.6 Neutrophils % 77.1 H Lymphocytes % 9.7 L Monocytes % 8.9 Eosinophils % 2.9 Basophils % 0.6 Nucleated Red Blood Cells % 0.0 Neutrophils # 14.0 H Lymphocytes # 1.8 Monocytes # 1.6 H Eosinophils # 0.5 Basophils # 0.1 Nucleated Red Blood Cells # 0.0 Sodium Level 134 L Potassium Level 4.0 Chloride Level 102 Carbon Dioxide Level 28 Anion Gap 8 Blood Urea Nitrogen 19 Creatinine 0.43 L Glucose Level 140 Calcium Level 8.5 Total Bilirubin 0.0 L Direct Bilirubin 0.00 Indirect Bilirubin 0.0 Aspartate Amino Transf (AST/SGOT) 56 H Alanine Aminotransferase (ALT/SGPT) 64 Alkaline Phosphatase 285 H Total Protein 7.4 Albumin 2.7 L Globulin 4.70 H Albumin/Globulin Ratio 0.57 Blood Gas Specimen Source Blood arterial Arterial Blood Date Drawn 11/15/2016 7:40:47 AM Arterial Blood pH (Temp corrected) 7.364 Arterial Blood pCO2 (Temp correct) 49.4 H Arterial Blood pO2 (Temp corrected) 110.4 H Arterial Blood HCO3 27.5 H Arterial Blood Base Excess 1.7 Arterial Blood Oxygen Saturation 98.0 Nader Test ACCEPTAB Arterial Blood Gas Puncture Site Right Radial Arterial Blood Carboxyhemoglobin 0.3 Arterial Blood Methemoglobin 0.5 Blood Gas A-a O2 Differential 190.5 H Oxyhemoglobin Percent 97.2 Total Hemoglobin 9.8 L Blood Gas Temperature 37.0 Blood Gas Respiration Rate 20.0 Blood Gas Actual Respiration Rate 33 Blood Gas Modality MASK - BIPAP FiO2 50.0 Blood Gas IPAP/EPAP Ratio 15/5 Blood Gas Notified Whom JLD Blood Gas Notified Time 11/15/2016 8:14:29 AM Medications Medications Current Medications Ondansetron HCl (Zofran Inj) 4 mg Q6 PRN IV NAUSEA AND/OR VOMITING; Start 09/26 at 22:30 Acetaminophen (Tylenol Tab) 650 mg Q6H PRN PO PAIN AND OR ELEVATED TEMP Last administered on 11/09/16 13:07; Admin Dose 650 MG; Start 09/26/16 at 23:00 Ascorbic Acid (Vitamin C) 500 mg BID PO Last administered on 11/15/16 20:33; Admin Dose 500 MG; Start 09/27/16 at 09:00 Atorvastatin Calcium (Lipitor) 20 mg QHS PO Last administered on 11/15/16 20: 33; Admin Dose 20 MG; Start 09/27/16 at 21:00 Diazepam (Valium) 10 mg DAILY PO Last administered on 11/15/16 08:29; Admin Dose 10 MG; Start 09/27/16 at 09:00 Docusate Sodium (Colace) 100 mg Q12H PRN PO CONSTIPATION Last administered on 09:23; Admin Dose 100 MG; Start 09/26/16 at 23:00 Duloxetine HCl (Cymbalta) 20 mg DAILY PO Last administered on 11/15/16 08:28; Admin Dose 20 MG; Start 09/27/16 at 09:00 Zolpidem Tartrate (Ambien) 5 mg QHS PRN PO INSOMNIA Last administered on 20:23; Admin Dose 5 MG; Start 09/26/16 at 23:00 Collagenase (Santyl) 1 applic DAILY TOP Last administered on 11/15/16 08:28; Admin Dose 1 APPLIC; Start 09/27/16 at 09:00 Collagenase (Santyl) 1 applic PRN PRN TOP SOILED OR DISLODGED DRESSING; Start 09/27/16 at 05:00 Lansoprazole (Prevacid) 30 mg DAILY@06 GTB Last administered on 11/15/16 05:38 ; Admin Dose 30 MG; Start 09/28/16 at 06:00 Cromolyn Sodium (Nasalcrom) 1 spray QID NASAL Last administered on 11/15/16 20 :33; Admin Dose 1 SPRAY; Start 09/29/16 at 11:02 Phenol (Cepastat Lozenge) 1 lozenge Q2H PRN MT SORE THROAT Last administered on 11/02/16 01:02; Admin Dose 1 LOZENGE; Start 10/01/16 at 19:00 IV Flush (NS 10 ml) 10 ml PRN PRN IV IV PROTOCOL Last administered on 08:08; Admin Dose 10 ML; Start 10/02/16 at 19:00 Lactobacillus Acidophilus (Florajen3 Capsule) 1 each TID PO Last administered on 11/15/16 20:33; Admin Dose 1 EACH; Start 10/03/16 at 21:00 Hydromorphone HCl (Dilaudid) 0.5 mg Q4H PRN IV PAIN Last administered on 19:43; Admin Dose 0.5 MG; Start 10/06/16 at 18:30 Promethazine HCl/ Codeine (Phenergan/ Codeine) 10 ml BID PRN PO COUGH Last administered on 11/12/16 11:10; Admin Dose 10 ML; Start 10/07/16 at 20:30 Potassium Chloride (Potassium Chloride Pwd/Soln) 20 meq DAILY GTB Last administered on 11/15/16 08:28; Admin Dose 20 MEQ; Start 10/30/16 at 12:00 Alprazolam (Xanax) 0.5 mg Q12H PRN PO ANXIETY Last administered on 11/15/16 17 :49; Admin Dose 0.5 MG; Start 11/08/16 at 20:30 Metronidazole 500 mg 500 mg Q8 PO Last administered on 11/15/16 21:09; Admin Dose 500 MG; Start 11/10/16 at 14:00 Dextrose/Sodium Chloride 1,000 ml @ 75 mls/hr [id number] IV Last administered on 11/15/16 09:20; Admin Dose 75 MLS/HR; Start 11/12/16 at 04:30 Norepinephrine/ Dextrose (Levophed/D5W) 500 ml @ 1.87 mls/hr TITRATE IV Last administered on 11/15/16 17:45; Admin Dose 11.25 MLS/HR; Start 11/12/16 at 04: 30 Metoprolol Tartrate 25 mg 25 mg Q6 PRN GTB For HR > 130 Last administered on 21:09; Admin Dose 25 MG; Start 11/12/16 at 22:30 Meropenem (Merrem 500 Mg/ 100 ml (Pmx)) 100 ml @ 200 mls/hr Q8 IVPB Last administered on 11/15/16 21:09; Admin Dose 200 MLS/HR; Start 11/14/16 at 14:00 Fluconazole 100 mg 100 mg DAILY PO Last administered on 11/15/16 08:28; Admin Dose 100 MG; Start 11/14/16 at 13:00 Vancomycin HCl/ Sodium Chloride (Vancocin/NS) 150 ml @ 75 mls/hr Q12H IVPB Last administered on 11/15/16t 21:09; Admin Dose 75 MLS/HR; Start 11/15/16 at 10 :00 DYLLAN CARRION MD November 15, 2016 21:20
[2016-11-16] VITALS (97 sets, daily range): BP systolic 79–132; BP diastolic 56–96; PULSE 95–170; RESP 19–45
[2016-11-16] MEDS: HYDROmorphONE 1 MG/ML SYG IV PRN ×5 (00:09→23:58)
[2016-11-16] MEDS: ACETAMINOPHEN 325 MG TAB PO PRN (00:09)
[2016-11-16] MEDS: DEXTROSE 5%-0.45% NACL 1,000 ML IV SCH ×3 (02:04→21:31)
--- NOTE | 2016-11-16 02:14 | PN ---
Date/Time of Note Date/Time of Note DATE: 11/14/16 TIME: 12:13 Assessment/Plan Lines/Catheters IV Catheter Type (from Nrs): PICC Line George in Place (from [facility]): Yes Assessment/Plan Chief Complaint/Hosp Course 1. Multiple decubitus ulcers with debris. Sacrococcygeal ulcer s/p exc boris . -Offload -Optimize nutrition -Vitamin C -Local care 2. UTI s/p abx 3. 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 Acute on chronic diastolic heart failure -Judicious fluid management -Cardiac optimization 5. Hypertension -Diet and medication control 6. Chronic urinary retention with George 7. Depression. -Medical management 8. Hypothyroidism by history. -Synthroid 9. Anemia of chronic disease in addition to iron deficiency anemia. -Continue iron supplements. -Transfusion when necessary 10. Chronic pain syndrome. Continue pain management. Thank you Late entry 11/14 Problems: Subjective 24 Hr Interval Summary Still in ICU. Leukocytosis. Tachyarrhythmia. No fevers, chills, nausea, vomiting, or abdominal pain. No abnormal vaginal discharge. No bloating. No cough, sz, bloating. No robles/dizzy/visual or neuro changes. Exam/Review of Systems Vital Signs Vitals Vital Signs Date Time Temp Pulse Resp B/P Pulse Ox O2 Delivery O2 Flow Rate FiO2 11/16/16 01:55 100 5.0 11/16/16 01:30 118 21 84/59 Nasal Cannula 11/16/16 01:00 98.8 11/15/16 23:55 50 Intake and Output 11/15/16 11/15/16 11/16/16 15:00 23:00 07:00 Intake Total 1186.87 ml 1598.75 ml 532.50 ml Output Total 405 ml 610 ml 200 ml Balance 781.87 ml 988.75 ml 332.50 ml Exam Free Text/Dictation GENERAL: Elderly, cachectic, no acute distress. HEENT: Head is atraumatic, normocephalic. Pupils equal, round, reactive to light and accommodation. Oral mucosa is pink and moist. NECK: Supple, no cervical lymphadenopathy LUNGS: Normal respiratory effort CARDIAC: S1 and S2. Tachy, Irregular ABDOMEN: Flat, soft and nondistended. Nontender. No rebound or guarding. SKIN: Multiple decubitus wounds/ulcers buttock sacrum and right lower extremity EXTREMITIES: No edema. Pulses equal bilaterally, 2+. NEUROLOGICAL: Responsive VASCULAR: Refill is less than 2 seconds Results Result Diagram: 11/15/16 0500 11/15/16 0500 ZAK POSEY MD Nov 16, 2016 02:14
--- NOTE | 2016-11-16 02:15 | PN ---
Date/Time of Note Date/Time of Note DATE: 11/15/16 TIME: 22:14 Assessment/Plan Lines/Catheters IV Catheter Type (from [facility]): PICC Line George in Place (from [facility]): Yes Assessment/Plan Chief Complaint/Hosp Course 1. Multiple decubitus ulcers with debris. Sacrococcygeal ulcer s/p exc boris . -Offload -Optimize nutrition -Vitamin C -Local care 2. UTI s/p abx 3. 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 Acute on chronic diastolic heart failure -Judicious fluid management -Cardiac optimization 5. Hypertension -Diet and medication control 6. Chronic urinary retention with George 7. Depression. -Medical management 8. Hypothyroidism by history. -Synthroid 9. Anemia of chronic disease in addition to iron deficiency anemia. -Continue iron supplements. -Transfusion when necessary 10. Chronic pain syndrome. Continue pain management. Thank you Problems: Subjective 24 Hr Interval Summary Still in ICU. Leukocytosis. Tachyarrhythmia. No fevers, chills, nausea, vomiting, or abdominal pain. No abnormal vaginal discharge. No bloating. No cough, sz, bloating. No robles/dizzy/visual or neuro changes. Exam/Review of Systems Vital Signs Vitals Vital Signs Date Time Temp Pulse Resp B/P Pulse Ox O2 Delivery O2 Flow Rate FiO2 11/16/16 01:55 100 5.0 11/16/16 01:30 118 21 84/59 Nasal Cannula 11/16/16 01:00 98.8 11/15/16 23:55 50 Intake and Output 11/15/16 11/15/16 11/16/16 15:00 23:00 07:00 Intake Total 1186.87 ml 1598.75 ml 532.50 ml Output Total 405 ml 610 ml 200 ml Balance 781.87 ml 988.75 ml 332.50 ml Exam Free Text/Dictation GENERAL: Elderly, cachectic, no acute distress. HEENT: Head is atraumatic, normocephalic. Pupils equal, round, reactive to light and accommodation. Oral mucosa is pink and moist. NECK: Supple, no cervical lymphadenopathy LUNGS: Normal respiratory effort CARDIAC: S1 and S2. Tachy, Irregular ABDOMEN: Flat, soft and nondistended. Nontender. No rebound or guarding. SKIN: Multiple decubitus wounds/ulcers buttock sacrum and right lower extremity EXTREMITIES: No edema. Pulses equal bilaterally, 2+. NEUROLOGICAL: Responsive VASCULAR: Refill is less than 2 seconds Results Result Diagram: 11/15/16 0500 11/15/16 0500 ZAK POSEY MD Nov 16, 2016 02:15
[2016-11-16] MEDS: MEROPENEM 500 MG/100 ML (PMX) 100 ML IVPB SCH ×3 (05:13→21:30)
[2016-11-16] MEDS: LANSOPRAZOLE 30 MG CAP GTB SCH (05:13)
[2016-11-16] MEDS: metroNIDAZOLE 500 MG TAB PO SCH ×2 (05:13→13:04)
[2016-11-16 05:42] LABS: ADD SCAN DIFF NO
[2016-11-16 05:46] LABS: ABNORMAL IP MESSAGE 1; BASOPHIL # 0.1 10^3/ul (0.0-0.1); BASOPHILS % 0.4 % (0.0-2.0); EOSINOPHILS # 0.4 10^3/ul (0.0-0.5); EOSINOPHILS % 2.2 % (0.0-7.0); LYMPHOCYTES # 1.7 10^3/ul (0.8-2.9); MEAN CORPUSCULAR HEMOGLOBIN 25.6 pg (29.0-33.0); MEAN CORPUSCULAR HGB CONC 28.6 g/dl (32.0-37.0); MEAN CORPUSCULAR VOLUME 89.7 fl (82.0-101.0); MEAN PLATELET VOLUME 9.4 fl (7.4-10.4); MONOCYTE # 1.8 10^3/ul (0.3-0.9); MONOCYTES % 9.5 % (0.0-11.0); NEUTROPHIL # 14.9 10^3/ul (1.6-7.5); NEUTROPHILS % 78.2 % (39.0-77.0); PLATELET COUNT 476 10^3/UL (140-415); RED BLOOD COUNT 3.12 10^6/ul (4.20-5.40); WHITE BLOOD COUNT 19.1 10^3/ul (4.8-10.8)
[2016-11-16] MEDS: LEVOTHYROXINE 125 MCG TAB PO SCH (06:02)
[2016-11-16 06:11] LABS: CALCIUM 8.6 mg/dl (8.4-10.2); CREATININE 0.41 mg/dl (0.44-1.00)
[2016-11-16 07:53] LABS: AADO2 Arterial 96.3 mmHg (7.0-24.0); Allen Test ACCEPTAB; Arterial COHb 0.3 % (0.0-3.0); Arterial Fraction of Oxyhgb 95.3 % (93.0-99.0); Arterial HCO3 29.3 mmol/L (22.0-26.0); Arterial MetHb 0.5 % (0.0-1.5); Arterial Total Hemglobin 10.8 g/dl (12.0-18.0); MODE NASAL CANNULA
[2016-11-16] MEDS: COLLAGENASE 30 GM TUBE TOP SCH (09:00)
[2016-11-16] MEDS: POTASSIUM CHLORIDE 20 MEQ POWDER FOR ORAL SOLN GTB SCH (09:01)
[2016-11-16] MEDS: DULOXETINE 20 MG CAP DR PO SCH (09:02)
[2016-11-16] MEDS: FLUCONAZOLE 100 MG TAB PO SCH (09:02)
[2016-11-16] MEDS: CROMOLYN 4% 26ML NAS INH NASAL SCH ×4 (09:02→20:52)
[2016-11-16] MEDS: DIAZEPAM 5 MG TAB PO SCH (09:02)
[2016-11-16] MEDS: ASCORBIC ACID 500 MG TAB PO SCH (09:02)
[2016-11-16] MEDS: L ACIDOPHIL/B LACTIS/B LONGUM CAPSULE PO SCH ×2 (09:02→13:04)
[2016-11-16] MEDS: VANCOMYCIN 750 MG in SOD CHLORIDE 0.9% 150 ML IVPB SCH ×2 (09:03→22:05)
--- NOTE | 2016-11-16 10:34 | PN ---
Date/Time of Note Date/Time of Note DATE: 11/16/16 TIME: 10:33 Assessment/Plan VTE Prophylaxis VTE Prophylaxis Intervention: SCD's Lines/Catheters IV C[facility]ter Type (from [facility]): PICC Line Central line still needed: Yes Urinary Cath still in place: Yes Reason Cath still needed: urinary retention Assessment/Plan Assessment/Plan 1. Septic versus hypovolemic shock. - per Dr. Coleman in infectious disease consultation. Continue antibiotics per ID. - per Dr. Chairez's group is following in cardiology consultation. Continue Levophed for blood pressure support and ICU care. 2. Acute respiratory failure requiring BiPAP. Dr. Neri is following patient in pulmonology consultation. 3. Possible acute chronic bronchitis per chest x-ray. 4. Left lung squamous carcinoma. 5. Chronic obstructive pulmonary disease. 6. Dysphagia with G-tube. 7. Hypothyroidism. 8. Anemia of chronic disease. 9. Multiple wounds. 10. Failure to thrive. 11. Prevacid for peptic ulcer disease prophylaxis 12. Sequential compression device for deep venous thrombosis prophylaxis. Further recommendations based on clinical course. Plan of care adam Dozier/ staff Subjective 24 Hr Interval Summary Free Text/Dictation resting, remains in o2, wound vac intact,afebrile, dw staff Constitutional: requiring O2 Respiratory: shortness of breath Cardiovascular: no complaints Exam/Review of Systems Vital Signs Vitals Vital Signs Date Time Temp Pulse Resp B/P Pulse Ox O2 Delivery O2 Flow Rate FiO2 11/16/16 08:00 121 11/16/16 07:00 38 111/83 100 Nasal Cannula 4.0 11/16/16 04:00 97.8 11/15/16 23:55 50 Intake and Output 11/15/16 11/15/16 11/16/16 15:00 23:00 07:00 Intake Total 1186.87 ml 1598.75 ml 1395.00 ml Output Total 405 ml 610 ml 1155 ml Balance 781.87 ml 988.75 ml 240.00 ml Exam Constitutional: alert Psych: nl mood/affect Neck: non-tender Respiratory: diminished breath sounds, normal air movement Cardiovascular: nl pulses Gastrointestinal: non-tender, soft Musculoskeletal: muscle weakness Extremities: normal pulses Neurological: nl speech Skin: other (multiple decubitus ulcers including bilateral buttocks and bilateral lower extremities. sacral wound with wound vac - intact.) Lymph: nontender Results Result Diagram: 11/16/16 0500 11/16/16 0500 Results 24 hrs Laboratory Tests Test 11/16/16 05:00 11/16/16 07:00 White Blood Count 19.1 H Red Blood Count 3.12 L Hemoglobin 8.0 L Hematocrit 28.0 L Mean Corpuscular Volume 89.7 Mean Corpuscular Hemoglobin 25.6 L Mean Corpuscular Hemoglobin Concent 28.6 L Red Cell Distribution Width 18.0 H Platelet Count 476 H Mean Platelet Volume 9.4 Neutrophils % 78.2 H Lymphocytes % 9.0 L Monocytes % 9.5 Eosinophils % 2.2 Basophils % 0.4 Nucleated Red Blood Cells % 0.0 Neutrophils # 14.9 H Lymphocytes # 1.7 Monocytes # 1.8 H Eosinophils # 0.4 Basophils # 0.1 Nucleated Red Blood Cells # 0.0 Sodium Level 131 L Potassium Level 4.0 Chloride Level 99 Carbon Dioxide Level 29 Anion Gap 7 L Blood Urea Nitrogen 16 Creatinine 0.41 L Glucose Level 125 Calcium Level 8.6 Blood Gas Specimen Source Blood arterial Arterial Blood Date Drawn 11/16/2016 7:20:22 AM Arterial Blood pH (Temp corrected) 7.406 Arterial Blood pCO2 (Temp correct) 47.8 H Arterial Blood pO2 (Temp corrected) 83.2 Arterial Blood HCO3 29.3 H Arterial Blood Base Excess 4.0 H Arterial Blood Oxygen Saturation 96.1 Nader Test ACCEPTAB Arterial Blood Gas Puncture Site Right Radial Arterial Blood Carboxyhemoglobin 0.3 Arterial Blood Methemoglobin 0.5 Blood Gas A-a O2 Differential 96.3 H Oxyhemoglobin Percent 95.3 Total Hemoglobin 10.8 L Blood Gas Temperature 37.0 Blood Gas Modality NASAL CANNULA FiO2 33.0 Blood Gas Notified Whom JLD Blood Gas Notified Time 11/16/2016 7:52:52 AM Medications Medications Current Medications Ondansetron HCl (Zofran Inj) 4 mg Q6 PRN IV NAUSEA AND/OR VOMITING; Start 09/26 at 22:30 Acetaminophen (Tylenol Tab) 650 mg Q6H PRN PO PAIN AND OR ELEVATED TEMP Last administered on 11/16/16 00:09; Admin Dose 650 MG; Start 09/26/16 at 23:00 Ascorbic Acid (Vitamin C) 500 mg BID PO Last administered on 11/16/16 09:02; Admin Dose 500 MG; Start 09/27/16 at 09:00 Atorvastatin Calcium (Lipitor) 20 mg QHS PO Last administered on 11/15/16 20: 33; Admin Dose 20 MG; Start 09/27/16 at 21:00 Diazepam (Valium) 10 mg DAILY PO Last administered on 11/16/16 09:02; Admin Dose 10 MG; Start 09/27/16 at 09:00 Docusate Sodium (Colace) 100 mg Q12H PRN PO CONSTIPATION Last administered on 09:23; Admin Dose 100 MG; Start 09/26/16 at 23:00 Duloxetine HCl (Cymbalta) 20 mg DAILY PO Last administered on 11/16/16 09:02; Admin Dose 20 MG; Start 09/27/16 at 09:00 Zolpidem Tartrate (Ambien) 5 mg QHS PRN PO INSOMNIA Last administered on 20:23; Admin Dose 5 MG; Start 09/26/16 at 23:00 Collagenase (Santyl) 1 applic DAILY TOP Last administered on 11/15/16 08:28; Admin Dose 1 APPLIC; Start 09/27/16 at 09:00 Collagenase (Santyl) 1 applic PRN PRN TOP SOILED OR DISLODGED DRESSING; Start 09/27/16 at 05:00 Lansoprazole (Prevacid) 30 mg DAILY@06 GTB Last administered on 11/16/16 05:13 ; Admin Dose 30 MG; Start 09/28/16 at 06:00 Cromolyn Sodium (Nasalcrom) 1 spray QID NASAL Last administered on 11/16/16 09: 02; Admin Dose 1 SPRAY; Start 09/29/16 at 11:02 Phenol (Cepastat Lozenge) 1 lozenge Q2H PRN MT SORE THROAT Last administered on 11/02/16 01:02; Admin Dose 1 LOZENGE; Start 10/01/16 at 19:00 IV Flush (NS 10 ml) 10 ml PRN PRN IV IV PROTOCOL Last administered on 08:08; Admin Dose 10 ML; Start 10/02/16 at 19:00 Lactobacillus Acidophilus (Florajen3 Capsule) 1 each TID PO Last administered on 11/16/16 09:02; Admin Dose 1 EACH; Start 10/03/16 at 21:00 Hydromorphone HCl (Dilaudid) 0.5 mg Q4H PRN IV PAIN Last administered on 00:09; Admin Dose 0.5 MG; Start 10/06/16 at 18:30 Promethazine HCl/ Codeine (Phenergan/ Codeine) 10 ml BID PRN PO COUGH Last administered on 11/12/16 11:10; Admin Dose 10 ML; Start 10/07/16 at 20:30 Potassium Chloride (Potassium Chloride Pwd/Soln) 20 meq DAILY GTB Last administered on 11/16/16 09:01; Admin Dose 20 MEQ; Start 10/30/16 at 12:00 Alprazolam (Xanax) 0.5 mg Q12H PRN PO ANXIETY Last administered on 11/15/16 17 :49; Admin Dose 0.5 MG; Start 11/08/16 at 20:30 Metronidazole 500 mg 500 mg Q8 PO Last administered on 11/16/16 05:13; Admin Dose 500 MG; Start 11/10/16 at 14:00 Dextrose/Sodium Chloride 1,000 ml @ 75 mls/hr [id number] IV Last administered on 11/16/16 02:04; Admin Dose 75 MLS/HR; Start 11/12/16 at 04:30 Norepinephrine/ Dextrose (Levophed/D5W) 500 ml @ 1.87 mls/hr TITRATE IV Last administered on 11/15/16 17:45; Admin Dose 11.25 MLS/HR; Start 11/12/16 at 04: 30 Metoprolol Tartrate 25 mg 25 mg Q6 PRN GTB For HR > 130 Last administered on 21:09; Admin Dose 25 MG; Start 11/12/16 at 22:30 Meropenem (Merrem 500 Mg/ 100 ml (Pmx)) 100 ml @ 200 mls/hr Q8 IVPB Last administered on 11/16/16 05:13; Admin Dose 200 MLS/HR; Start 11/14/16 at 14:00 Fluconazole 100 mg 100 mg DAILY PO Last administered on 11/16/16 09:02; Admin Dose 100 MG; Start 11/14/16 at 13:00 Vancomycin HCl/ Sodium Chloride (Vancocin/NS) 150 ml @ 75 mls/hr Q12H IVPB Last administered on 11/16/16 09:03; Admin Dose 75 MLS/HR; Start 11/15/16 at 10: 00 VIKASH CASTANEDA Nov 16, 2016 10:34
--- NOTE | 2016-11-16 11:27 | CONS ---
Date/Time of Note Date/Time of Note DATE: 11/16/16 TIME: 11:24 Assessment/Plan Assessment/Plan Additional Assessment/Plan Chest x-ray was reviewed from yesterday which is showing again a lung mass in the left lower lobe. With some volume loss. ABG was reviewed from this morning which is markedly improved on nasal cannula. Patient currently on Levophed drip at 7 mics per minute. Assessment recommendations; 1. Patient admitted for recurrent sepsis from severe sacral decubitus ulcer. 2. History of hypo-thyroidism, COPD, and hypertension. 3. Likely left lower lobe lung malignancy. 4. Significant clinical improvement. 5. Improving hypotension. Continue current treatment. Consultation Date/Type/Reason Admit Date/Time Sep 26, 2016 at 20:07 Initial Consult Date 11/14/16 Type of Consultation: Pulmonary/critical care Referring Provider: DRE LOBATO MD 24 HR Interval Summary Free Text/Dictation Patient's condition is markedly improved. Patient has been taken off BiPAP. And started on nasal cannula. Patient is completely awake and alert. Denies any shortness of breath, abdominal pain, nausea vomiting. General exam; elderly lady, awake alert currently in no distress. Able to talk. Exam/Review of Systems Vital Signs Vitals Vital Signs Date Time Temp Pulse Resp B/P Pulse Ox O2 Delivery O2 Flow Rate FiO2 11/16/16 10:45 129 43 109/86 91 11/16/16 10:00 Nasal Cannula 11/16/16 08:00 97.6 11/16/16 07:00 4.0 11/15/16 23:55 50 Intake and Output 11/15/16 11/15/16 11/16/16 15:00 23:00 07:00 Intake Total 1186.87 ml 1598.75 ml 1395.00 ml Output Total 405 ml 610 ml 1155 ml Balance 781.87 ml 988.75 ml 240.00 ml Exam HEENT examination; supple neck, no JVD. No lymphadenopathy. Midline trachea. No thyromegaly. Pharynx is clear. Patient has a multiple carious teeth. Pupils are small bilaterally. Chest examination; diminished but clear vessel. S1-S2 audible, no murmurs. Regular rhythm. Abdomen examination; soft, no organomegaly. Bowel sounds audible. Abdomen is scaphoid. Extremity exam; no peripheral edema. Back examination; there is a wound VAC in placed in the sacral area. GREASE [employer] TALLOW [employer]MPER examination; no focal motor deficit. Results Result Diagram: 11/16/16 0500 11/16/16 0500 Results 24 hrs Laboratory Tests Test 11/16/16 05:00 11/16/16 07:00 White Blood Count 19.1 H Red Blood Count 3.12 L Hemoglobin 8.0 L Hematocrit 28.0 L Mean Corpuscular Volume 89.7 Mean Corpuscular Hemoglobin 25.6 L Mean Corpuscular Hemoglobin Concent 28.6 L Red Cell Distribution Width 18.0 H Platelet Count 476 H Mean Platelet Volume 9.4 Neutrophils % 78.2 H Lymphocytes % 9.0 L Monocytes % 9.5 Eosinophils % 2.2 Basophils % 0.4 Nucleated Red Blood Cells % 0.0 Neutrophils # 14.9 H Lymphocytes # 1.7 Monocytes # 1.8 H Eosinophils # 0.4 Basophils # 0.1 Nucleated Red Blood Cells # 0.0 Sodium Level 131 L Potassium Level 4.0 Chloride Level 99 Carbon Dioxide Level 29 Anion Gap 7 L Blood Urea Nitrogen 16 Creatinine 0.41 L Glucose Level 125 Calcium Level 8.6 Blood Gas Specimen Source Blood arterial Arterial Blood Date Drawn 11/16/2016 7:20:22 AM Arterial Blood pH (Temp corrected) 7.406 Arterial Blood pCO2 (Temp correct) 47.8 H Arterial Blood pO2 (Temp corrected) 83.2 Arterial Blood HCO3 29.3 H Arterial Blood Base Excess 4.0 H Arterial Blood Oxygen Saturation 96.1 Nader Test ACCEPTAB Arterial Blood Gas Puncture Site Right Radial Arterial Blood Carboxyhemoglobin 0.3 Arterial Blood Methemoglobin 0.5 Blood Gas A-a O2 Differential 96.3 H Oxyhemoglobin Percent 95.3 Total Hemoglobin 10.8 L Blood Gas Temperature 37.0 Blood Gas Modality NASAL CANNULA FiO2 33.0 Blood Gas Notified Whom JLD Blood Gas Notified Time 11/16/2016 7:52:52 AM Medications Medications Current Medications Ondansetron HCl (Zofran Inj) 4 mg Q6 PRN IV NAUSEA AND/OR VOMITING; Start 09/26 at 22:30 Acetaminophen (Tylenol Tab) 650 mg Q6H PRN PO PAIN AND OR ELEVATED TEMP Last administered on 11/16/16t 00:09; Admin Dose 650 MG; Start 09/26/16 at 23:00 Ascorbic Acid (Vitamin C) 500 mg BID PO Last administered on 11/16/16 09:02; Admin Dose 500 MG; Start 09/27/16 at 09:00 Atorvastatin Calcium (Lipitor) 20 mg QHS PO Last administered on 11/15/16 20: 33; Admin Dose 20 MG; Start 09/27/16 at 21:00 Diazepam (Valium) 10 mg DAILY PO Last administered on 11/16/16 09:02; Admin Dose 10 MG; Start 09/27/16 at 09:00 Docusate Sodium (Colace) 100 mg Q12H PRN PO CONSTIPATION Last administered on 09:23; Admin Dose 100 MG; Start 09/26/16 at 23:00 Duloxetine HCl (Cymbalta) 20 mg DAILY PO Last administered on 11/16/16 09:02; Admin Dose 20 MG; Start 09/27/16 at 09:00 Zolpidem Tartrate (Ambien) 5 mg QHS PRN PO INSOMNIA Last administered on 20:23; Admin Dose 5 MG; Start 09/26/16 at 23:00 Collagenase (Santyl) 1 applic DAILY TOP Last administered on 11/15/16 08:28; Admin Dose 1 APPLIC; Start 09/27/16 at 09:00 Collagenase (Santyl) 1 applic PRN PRN TOP SOILED OR DISLODGED DRESSING; Start 09/27/16 at 05:00 Lansoprazole (Prevacid) 30 mg DAILY@06 GTB Last administered on 11/16/16 05:13 ; Admin Dose 30 MG; Start 09/28/16 at 06:00 Cromolyn Sodium (Nasalcrom) 1 spray QID NASAL Last administered on 11/16/16 09: 02; Admin Dose 1 SPRAY; Start 09/29/16 at 11:02 Phenol (Cepastat Lozenge) 1 lozenge Q2H PRN MT SORE THROAT Last administered on 11/02/16 01:02; Admin Dose 1 LOZENGE; Start 10/01/16 at 19:00 IV Flush (NS 10 ml) 10 ml PRN PRN IV IV PROTOCOL Last administered on 08:08; Admin Dose 10 ML; Start 10/02/16 at 19:00 Lactobacillus Acidophilus (Florajen3 Capsule) 1 each TID PO Last administered on 11/16/16 09:02; Admin Dose 1 EACH; Start 10/03/16 at 21:00 Hydromorphone HCl (Dilaudid) 0.5 mg Q4H PRN IV PAIN Last administered on 10:46; Admin Dose 0.5 MG; Start 10/06/16 at 18:30 Promethazine HCl/ Codeine (Phenergan/ Codeine) 10 ml BID PRN PO COUGH Last administered on 11/12/16 11:10; Admin Dose 10 ML; Start 10/07/16 at 20:30 Potassium Chloride (Potassium Chloride Pwd/Soln) 20 meq DAILY GTB Last administered on 11/16/16 09:01; Admin Dose 20 MEQ; Start 10/30/16 at 12:00 Alprazolam (Xanax) 0.5 mg Q12H PRN PO ANXIETY Last administered on 11/15/16 17 :49; Admin Dose 0.5 MG; Start 11/08/16 at 20:30 Metronidazole 500 mg 500 mg Q8 PO Last administered on 11/16/16 05:13; Admin Dose 500 MG; Start 11/10/16 at 14:00 Dextrose/Sodium Chloride 1,000 ml @ 75 mls/hr [id number] IV Last administered on 11/16/16 02:04; Admin Dose 75 MLS/HR; Start 11/12/16 at 04:30 Norepinephrine/ Dextrose (Levophed/D5W) 500 ml @ 1.87 mls/hr TITRATE IV Last administered on 11/15/16 17:45; Admin Dose 11.25 MLS/HR; Start 11/12/16 at 04: 30 Metoprolol Tartrate 25 mg 25 mg Q6 PRN GTB For HR > 130 Last administered on 21:09; Admin Dose 25 MG; Start 11/12/16 at 22:30 Meropenem (Merrem 500 Mg/ 100 ml (Pmx)) 100 ml @ 200 mls/hr Q8 IVPB Last administered on 11/16/16 05:13; Admin Dose 200 MLS/HR; Start 11/14/16 at 14:00 Fluconazole 100 mg 100 mg DAILY PO Last administered on 11/16/16 09:02; Admin Dose 100 MG; Start 11/14/16 at 13:00 Vancomycin HCl/ Sodium Chloride (Vancocin/NS) 150 ml @ 75 mls/hr Q12H IVPB Last administered on 11/16/16 09:03; Admin Dose 75 MLS/HR; Start 11/15/16 at 10: 00 REGINE BUCKLEY Nov 16, 2016 11:27
[2016-11-16] MEDS: PROMETHAZINE/CODEINE 5ML CUP PO PRN (12:44)
--- NOTE | 2016-11-16 13:00 | PN ---
Date/Time of Note Date/Time of Note DATE: 11/16/16 TIME: 13:00 Assessment/Plan VTE Prophylaxis VTE Prophylaxis Intervention: SCD's Lines/Catheters IV C[facility]ter Type (from [facility]): PICC Line Central line still needed: No Urinary Cath still in place: Yes Reason Cath still needed: urinary retention Assessment/Plan Chief Complaint/Hosp Course Patient is a 66-year-old female with anemia and cancer presents for anemia and leukocytosis. The patient was sent by Dr. Dozier from [facility] for admission. The patient said that she was "not feeling well all weekend". She was brought in by ambulance. She said that she had a fever but did not check her temperature. She has had cough and urinary symptoms as well as sore throat. The patient had peristent hypotension but no sycnope and remains stabe with no chest pain and no overt CHF Problems: Assessment/Plan Sepsis Respiratory failure Intermittent hypotension Diastolic congestive heart failure Pulmonary hypertension Preserved ejection fraction Tricuspid valve regurgitation Lung cancer -Patient with respiratory failure requiring BiPAP, presuming secondary to COPD exacerbation and possibly sepsis. Blood pressure trend overall improved. Fluid management as per our nephrology colleagues. -on pressor support Subjective 24 Hr Interval Summary Free Text/Dictation the patient with no change Exam/Review of Systems Vital Signs Vitals Vital Signs Date Time Temp Pulse Resp B/P Pulse Ox O2 Delivery O2 Flow Rate FiO2 11/16/16 12:00 122 11/16/16 11:45 34 105/84 100 11/16/16 11:00 Nasal Cannula 11/16/16 08:00 97.6 11/16/16 07:00 4.0 11/15/16 23:55 50 Intake and Output 11/15/16 11/15/16 11/16/16 15:00 23:00 07:00 Intake Total 1186.87 ml 1598.75 ml 1395.00 ml Output Total 405 ml 610 ml 1155 ml Balance 781.87 ml 988.75 ml 240.00 ml Results Result Diagram: 11/16/16 0500 11/16/16 0500 Results 24 hrs Laboratory Tests Test 11/16/16 05:00 11/16/16 07:00 White Blood Count 19.1 H Red Blood Count 3.12 L Hemoglobin 8.0 L Hematocrit 28.0 L Mean Corpuscular Volume 89.7 Mean Corpuscular Hemoglobin 25.6 L Mean Corpuscular Hemoglobin Concent 28.6 L Red Cell Distribution Width 18.0 H Platelet Count 476 H Mean Platelet Volume 9.4 Neutrophils % 78.2 H Lymphocytes % 9.0 L Monocytes % 9.5 Eosinophils % 2.2 Basophils % 0.4 Nucleated Red Blood Cells % 0.0 Neutrophils # 14.9 H Lymphocytes # 1.7 Monocytes # 1.8 H Eosinophils # 0.4 Basophils # 0.1 Nucleated Red Blood Cells # 0.0 Sodium Level 131 L Potassium Level 4.0 Chloride Level 99 Carbon Dioxide Level 29 Anion Gap 7 L Blood Urea Nitrogen 16 Creatinine 0.41 L Glucose Level 125 Calcium Level 8.6 Blood Gas Specimen Source Blood arterial Arterial Blood Date Drawn 11/16/2016 7:20:22 AM Arterial Blood pH (Temp corrected) 7.406 Arterial Blood pCO2 (Temp correct) 47.8 H Arterial Blood pO2 (Temp corrected) 83.2 Arterial Blood HCO3 29.3 H Arterial Blood Base Excess 4.0 H Arterial Blood Oxygen Saturation 96.1 Nader Test ACCEPTAB Arterial Blood Gas Puncture Site Right Radial Arterial Blood Carboxyhemoglobin 0.3 Arterial Blood Methemoglobin 0.5 Blood Gas A-a O2 Differential 96.3 H Oxyhemoglobin Percent 95.3 Total Hemoglobin 10.8 L Blood Gas Temperature 37.0 Blood Gas Modality NASAL CANNULA FiO2 33.0 Blood Gas Notified Whom JLD Blood Gas Notified Time 11/16/2016 7:52:52 AM Medications Medications Current Medications Ondansetron HCl (Zofran Inj) 4 mg Q6 PRN IV NAUSEA AND/OR VOMITING; Start 09/26 at 22:30 Acetaminophen (Tylenol Tab) 650 mg Q6H PRN PO PAIN AND OR ELEVATED TEMP Last administered on 11/16/16 00:09; Admin Dose 650 MG; Start 09/26/16 at 23:00 Ascorbic Acid (Vitamin C) 500 mg BID PO Last administered on 11/16/16 09:02; Admin Dose 500 MG; Start 09/27/16 at 09:00 Atorvastatin Calcium (Lipitor) 20 mg QHS PO Last administered on 11/15/16 20: 33; Admin Dose 20 MG; Start 09/27/16 at 21:00 Diazepam (Valium) 10 mg DAILY PO Last administered on 11/16/16 09:02; Admin Dose 10 MG; Start 09/27/16 at 09:00 Docusate Sodium (Colace) 100 mg Q12H PRN PO CONSTIPATION Last administered on 09:23; Admin Dose 100 MG; Start 09/26/16 at 23:00 Duloxetine HCl (Cymbalta) 20 mg DAILY PO Last administered on 11/16/16 09:02; Admin Dose 20 MG; Start 09/27/16 at 09:00 Zolpidem Tartrate (Ambien) 5 mg QHS PRN PO INSOMNIA Last administered on 20:23; Admin Dose 5 MG; Start 09/26/16 at 23:00 Collagenase (Santyl) 1 applic DAILY TOP Last administered on 11/15/16 08:28; Admin Dose 1 APPLIC; Start 09/27/16 at 09:00 Collagenase (Santyl) 1 applic PRN PRN TOP SOILED OR DISLODGED DRESSING; Start 09/27/16 at 05:00 Lansoprazole (Prevacid) 30 mg DAILY@06 GTB Last administered on 11/16/16 05:13 ; Admin Dose 30 MG; Start 09/28/16 at 06:00 Cromolyn Sodium (Nasalcrom) 1 spray QID NASAL Last administered on 11/16/16 09: 02; Admin Dose 1 SPRAY; Start 09/29/16 at 11:02 Phenol (Cepastat Lozenge) 1 lozenge Q2H PRN MT SORE THROAT Last administered on 11/02/16 01:02; Admin Dose 1 LOZENGE; Start 10/01/16 at 19:00 IV Flush (NS 10 ml) 10 ml PRN PRN IV IV PROTOCOL Last administered on 08:08; Admin Dose 10 ML; Start 10/02/16 at 19:00 Lactobacillus Acidophilus (Florajen3 Capsule) 1 each TID PO Last administered on 11/16/16 09:02; Admin Dose 1 EACH; Start 10/03/16 at 21:00 Hydromorphone HCl (Dilaudid) 0.5 mg Q4H PRN IV PAIN Last administered on 10:46; Admin Dose 0.5 MG; Start 10/06/16 at 18:30 Promethazine HCl/ Codeine (Phenergan/ Codeine) 10 ml BID PRN PO COUGH Last administered on 11/16/16 12:44; Admin Dose 10 ML; Start 10/07/16 at 20:30 Potassium Chloride (Potassium Chloride Pwd/Soln) 20 meq DAILY GTB Last administered on 11/16/16 09:01; Admin Dose 20 MEQ; Start 10/30/16 at 12:00 Alprazolam (Xanax) 0.5 mg Q12H PRN PO ANXIETY Last administered on 11/15/16 17 :49; Admin Dose 0.5 MG; Start 11/08/16 at 20:30 Metronidazole 500 mg 500 mg Q8 PO Last administered on 11/16/16 05:13; Admin Dose 500 MG; Start 11/10/16 at 14:00 Dextrose/Sodium Chloride 1,000 ml @ 75 mls/hr [id number] IV Last administered on 11/16/16 02:04; Admin Dose 75 MLS/HR; Start 11/12/16 at 04:30 Norepinephrine/ Dextrose (Levophed/D5W) 500 ml @ 1.87 mls/hr TITRATE IV Last administered on 11/15/16 17:45; Admin Dose 11.25 MLS/HR; Start 11/12/16 at 04: 30 Metoprolol Tartrate 25 mg 25 mg Q6 PRN GTB For HR > 130 Last administered on 21:09; Admin Dose 25 MG; Start 11/12/16 at 22:30 Meropenem (Merrem 500 Mg/ 100 ml (Pmx)) 100 ml @ 200 mls/hr Q8 IVPB Last administered on 11/16/16 05:13; Admin Dose 200 MLS/HR; Start 11/14/16 at 14:00 Fluconazole 100 mg 100 mg DAILY PO Last administered on 11/16/16 09:02; Admin Dose 100 MG; Start 11/14/16 at 13:00 Vancomycin HCl/ Sodium Chloride (Vancocin/NS) 150 ml @ 75 mls/hr Q12H IVPB Last administered on 11/16/16 09:03; Admin Dose 75 MLS/HR; Start 11/15/16 at 10: 00 RALPH LUCAS MD Nov 16, 2016 13:00
--- NOTE | 2016-11-16 13:07 | PN ---
DATE: 11/16/2016 SUBJECTIVE: No events overnight. The patient is awake, still on Levophed drip, but off BiPAP. She is tachycardic. She is responsive. Spiked a fever of 101.1 at midnight, T-current 97.6, pulse 120 , respirations 34, blood pressure 105/84, saturation 100 on nasal cannula. WBC 19.1, H and H 8 and 28, platelets 476, neutrophils 78.2, BUN 16, creatinine 0.41. MICROBIOLOGY: Blood cultures since 11/12/2016 negative. DIAGNOSTICS: Chest x-ray from yesterday revealed worsening consolidative infiltrate in the left low er lobe with persistent interstitial infiltrates in the right hilar area and right lower lobe. INDWELLINGS: PICC line, George, PEG. ANTIMICROBIALS: 1. Vancomycin. 2. Meropenem. 3. Fluconazole. 4. Flagyl. PHYSICAL EXAMINATION: GENERAL: This is a chronically ill-appearing, cachectic, elderly woman who is awake, in no distress . HEENT: Head atraumatic, normocephalic. Sclerae anicteric. Buccal mucosa dry. NECK: Supple, trachea midline. CHEST: Rise symmetrical. Breath sounds with bilateral scattered rhonchi. HEART: S1, S2. ABDOMEN: Soft, bowel tones present. EXTREMITIES: Wasted without cyanosis. ASSESSMENT: 1. Severe sepsis with shock. 2. Healthcare-associated pneumonia, possibly aspiration ____. 3. Chronic obstructive pulmonary disease. 4. Lung cancer. 5. Cachexia. 6. Unstageable sacral decubitus. 7. History of Clostridium difficile colitis. PLAN: The patient remains hemodynamically unstable, although clinically improved and now off BiPAP. She is being followed by multiple consultants. We will continue her on current antimicrobials. Dictated By: RUBIN MAYEN RAIL BONDER for JUAN COLLIER/SANDER Conf#: [id number] DID#: [id number]
--- NOTE | 2016-11-16 17:43 | CONS ---
Date/Time of Note Date/Time of Note DATE: 11/16/16 TIME: 17:41 Assessment/Plan Assessment/Plan Additional Assessment/Plan 1. Hyponatremia, multifactorial - pt likey has Component of SAIDH causing hypoantreia, due to acute on chronic pain 2. Status post acute kidney injury on chronic kidney disease due to systemic inflammatory response syndrome. now improved 3. Sepsis, 4. History of recurrent polymicrobial urinary tract infections. 5. History of dementia. 6. History of previous cerebrovascular accident. 7. History of chronic obstructive pulmonary disease, recently had acute respiratory failure secondary to chronic obstructive pulmonary disease exacerbation. 8. History of urinary retention with a chronic George catheter in place. 9. Chronic debility with cachexia. 10. Multiple decubitus ulcers with debris. Sacrococcygeal ulcer s/p exc boris . 11. History of degenerative joint disease of spine. 12. History of hypertension and hypertensive heart disease with mild to moderate concentric left ventricular hypertrophy and echocardiogram with diastolic dysfunction stage I.EF normal PLAN: off BIPAP but still on low dose levophed, pulmonary has been follwing on patient Na 131 today , K stable, on daily K supplement monitor electrolytes Cr normal will follow up Consultation Date/Type/Reason Admit Date/Time Sep 26, 2016 at 20:07 Type of Consultation: NEPHROLOGY Referring Provider: DRE LOBATO MD 24 HR Interval Summary Free Text/Dictation pt is off BIPAP but still on levophed for BP support, more awake today Exam/Review of Systems Vital Signs Vitals Vital Signs Date Time Temp Pulse Resp B/P Pulse Ox O2 Delivery O2 Flow Rate FiO2 11/16/16 16:00 120 11/16/16 16:00 97.9 33 108/76 Nasal Cannula 11/16/16 15:55 4.0 11/16/16 15:15 99 11/15/16 23:55 50 Intake and Output 11/15/16 11/15/16 11/16/16 15:00 23:00 07:00 Intake Total 1186.87 ml 1598.75 ml 1395.00 ml Output Total 405 ml 610 ml 1155 ml Balance 781.87 ml 988.75 ml 240.00 ml Results Result Diagram: 11/16/16 0500 11/16/16 0500 Results 24 hrs Laboratory Tests Test 11/16/16 05:00 11/16/16 07:00 White Blood Count 19.1 H Red Blood Count 3.12 L Hemoglobin 8.0 L Hematocrit 28.0 L Mean Corpuscular Volume 89.7 Mean Corpuscular Hemoglobin 25.6 L Mean Corpuscular Hemoglobin Concent 28.6 L Red Cell Distribution Width 18.0 H Platelet Count 476 H Mean Platelet Volume 9.4 Neutrophils % 78.2 H Lymphocytes % 9.0 L Monocytes % 9.5 Eosinophils % 2.2 Basophils % 0.4 Nucleated Red Blood Cells % 0.0 Neutrophils # 14.9 H Lymphocytes # 1.7 Monocytes # 1.8 H Eosinophils # 0.4 Basophils # 0.1 Nucleated Red Blood Cells # 0.0 Sodium Level 131 L Potassium Level 4.0 Chloride Level 99 Carbon Dioxide Level 29 Anion Gap 7 L Blood Urea Nitrogen 16 Creatinine 0.41 L Glucose Level 125 Calcium Level 8.6 Blood Gas Specimen Source Blood arterial Arterial Blood Date Drawn 11/16/2016 7:20:22 AM Arterial Blood pH (Temp corrected) 7.406 Arterial Blood pCO2 (Temp correct) 47.8 H Arterial Blood pO2 (Temp corrected) 83.2 Arterial Blood HCO3 29.3 H Arterial Blood Base Excess 4.0 H Arterial Blood Oxygen Saturation 96.1 Nader Test ACCEPTAB Arterial Blood Gas Puncture Site Right Radial Arterial Blood Carboxyhemoglobin 0.3 Arterial Blood Methemoglobin 0.5 Blood Gas A-a O2 Differential 96.3 H Oxyhemoglobin Percent 95.3 Total Hemoglobin 10.8 L Blood Gas Temperature 37.0 Blood Gas Modality NASAL CANNULA FiO2 33.0 Blood Gas Notified Whom JLD Blood Gas Notified Time 11/16/2016 7:52:52 AM Medications Medications Current Medications Ondansetron HCl (Zofran Inj) 4 mg Q6 PRN IV NAUSEA AND/OR VOMITING; Start 09/26 at 22:30 Acetaminophen (Tylenol Tab) 650 mg Q6H PRN PO PAIN AND OR ELEVATED TEMP Last administered on 11/16/16 00:09; Admin Dose 650 MG; Start 09/26/16 at 23:00 Ascorbic Acid (Vitamin C) 500 mg BID PO Last administered on 11/16/16 09:02; Admin Dose 500 MG; Start 09/27/16 at 09:00 Atorvastatin Calcium (Lipitor) 20 mg QHS PO Last administered on 11/15/16 20: 33; Admin Dose 20 MG; Start 09/27/16 at 21:00 Diazepam (Valium) 10 mg DAILY PO Last administered on 11/16/16 09:02; Admin Dose 10 MG; Start 09/27/16 at 09:00 Docusate Sodium (Colace) 100 mg Q12H PRN PO CONSTIPATION Last administered on 09:23; Admin Dose 100 MG; Start 09/26/16 at 23:00 Duloxetine HCl (Cymbalta) 20 mg DAILY PO Last administered on 11/16/16 09:02; Admin Dose 20 MG; Start 09/27/16 at 09:00 Zolpidem Tartrate (Ambien) 5 mg QHS PRN PO INSOMNIA Last administered on 20:23; Admin Dose 5 MG; Start 09/26/16 at 23:00 Collagenase (Santyl) 1 applic DAILY TOP Last administered on 11/15/16 08:28; Admin Dose 1 APPLIC; Start 09/27/16 at 09:00 Collagenase (Santyl) 1 applic PRN PRN TOP SOILED OR DISLODGED DRESSING; Start 09/27/16 at 05:00 Lansoprazole (Prevacid) 30 mg DAILY@06 GTB Last administered on 11/16/16 05:13 ; Admin Dose 30 MG; Start 09/28/16 at 06:00 Cromolyn Sodium (Nasalcrom) 1 spray QID NASAL Last administered on 11/16/16 17: 29; Admin Dose 1 SPRAY; Start 09/29/16 at 11:02 Phenol (Cepastat Lozenge) 1 lozenge Q2H PRN MT SORE THROAT Last administered on 11/02/16 01:02; Admin Dose 1 LOZENGE; Start 10/01/16 at 19:00 IV Flush (NS 10 ml) 10 ml PRN PRN IV IV PROTOCOL Last administered on 08:08; Admin Dose 10 ML; Start 10/02/16 at 19:00 Lactobacillus Acidophilus (Florajen3 Capsule) 1 each TID PO Last administered on 11/16/16 13:04; Admin Dose 1 EACH; Start 10/03/16 at 21:00 Hydromorphone HCl (Dilaudid) 0.5 mg Q4H PRN IV PAIN Last administered on 14:33; Admin Dose 0.5 MG; Start 10/06/16 at 18:30 Promethazine HCl/ Codeine (Phenergan/ Codeine) 10 ml BID PRN PO COUGH Last administered on 11/16/16 12:44; Admin Dose 10 ML; Start 10/07/16 at 20:30 Potassium Chloride (Potassium Chloride Pwd/Soln) 20 meq DAILY GTB Last administered on 11/16/16 09:01; Admin Dose 20 MEQ; Start 10/30/16 at 12:00 Alprazolam (Xanax) 0.5 mg Q12H PRN PO ANXIETY Last administered on 11/15/16 17 :49; Admin Dose 0.5 MG; Start 11/08/16 at 20:30 Metronidazole 500 mg 500 mg Q8 PO Last administered on 11/16/16 13:04; Admin Dose 500 MG; Start 11/10/16 at 14:00 Dextrose/Sodium Chloride 1,000 ml @ 75 mls/hr [id number] IV Last administered on 11/16/16 02:04; Admin Dose 75 MLS/HR; Start 11/12/16 at 04:30 Norepinephrine/ Dextrose (Levophed/D5W) 500 ml @ 1.87 mls/hr TITRATE IV Last administered on 11/15/16 17:45; Admin Dose 11.25 MLS/HR; Start 11/12/16 at 04: 30 Metoprolol Tartrate 25 mg 25 mg Q6 PRN GTB For HR > 130 Last administered on 21:09; Admin Dose 25 MG; Start 11/12/16 at 22:30 Meropenem (Merrem 500 Mg/ 100 ml (Pmx)) 100 ml @ 200 mls/hr Q8 IVPB Last administered on 11/16/16 13:04; Admin Dose 200 MLS/HR; Start 11/14/16 at 14:00 Fluconazole 100 mg 100 mg DAILY PO Last administered on 11/16/16 09:02; Admin Dose 100 MG; Start 11/14/16 at 13:00 Vancomycin HCl/ Sodium Chloride (Vancocin/NS) 150 ml @ 75 mls/hr Q12H IVPB Last administered on 11/16/16 09:03; Admin Dose 75 MLS/HR; Start 11/15/16 at 10: 00 Miscellaneous Information (*Rx Drug Level Order Reminder*) 1 ONCE ONCE XX ; Start 11/16/16 at 21:00; Stop 11/16/16 at 21:01 DIONNE SAUCEDA MD Nov 16, 2016 17:43
[2016-11-16] MEDS ORDERED: DOCUSATE SODIUM 10 MG/ML (10ML CUP) GTB PRN (20:00)
[2016-11-16] MEDS ORDERED: ZOLPIDEM 5 MG TAB PEG PRN (20:00)
[2016-11-16] MEDS: ATORVASTATIN 20 MG TAB PEG SCH (20:52)
[2016-11-16] MEDS: ASCORBIC ACID 500 MG TAB PEG SCH (20:53)
[2016-11-16] MEDS: L ACIDOPHIL/B LACTIS/B LONGUM CAPSULE PEG SCH (20:53)
[2016-11-16] MEDS: PROMETHAZINE/CODEINE 5ML CUP PEG PRN (20:53)
[2016-11-16] MEDS: ALPRAZOLAM 0.25 MG TAB PEG PRN (21:20)
[2016-11-16] MEDS: metroNIDAZOLE 500 MG TAB PEG SCH (21:30)
--- NOTE | 2016-11-16 23:06 | CONS ---
Date/Time of Note Date/Time of Note DATE: 11/16/16 TIME: 23:05 Assessment/Plan Assessment/Plan Chief Complaint/Hosp Course Left lung squamous carcinoma. The patient is not a candidate for chemotherapy. Anemia of chronic disease. monitor blood count closely transfuse as needed to keep HB above 8 Acute respiratory insufficiency requiring BiPAP. Acute shock, septic versus hypovolemic. tachycardia with episode of SVT. Chronic obstructive pulmonary disease. Dysphagia with G-tube. Continue current G-tube feeding. Hypothyroidism. Continue Synthroid. Problems: Consultation Date/Type/Reason Admit Date/Time Sep 26, 2016 at 20:07 Initial Consult Date 10/19/16 [facility] Referring Provider: DRE LOBATO MD 24 HR Interval Summary Free Text/Dictation off BIPAP but still on low dose levophed COUNT REVIEWED will follow up Exam/Review of Systems Vital Signs Vitals Vital Signs Date Time Temp Pulse Resp B/P Pulse Ox O2 Delivery O2 Flow Rate FiO2 11/16/16 23:00 123 38 94/73 99 Nasal Cannula 4.0 11/16/16 20:00 99.5 11/15/16 23:55 50 Intake and Output 11/15/16 11/15/16 11/16/16 15:00 23:00 07:00 Intake Total 1186.87 ml 1598.75 ml 1395.00 ml Output Total 405 ml 610 ml 1155 ml Balance 781.87 ml 988.75 ml 240.00 ml Exam GENERAL: Cachectic female, currently awake. NECK: Supple. LUNGS: Diminished air entry bilaterally. HEART: Normal S1, S2. No murmurs. The patient is tachycardic. ABDOMEN: Flat, soft, nondistended, nontender. G-tube with intact stoma. EXTREMITIES: Normal pulses, no edema. SKIN: There are multiple decubitus ulcers including bilateral buttocks and bilateral lower extremities. The patient has a wound VAC to sacral decubitus wound. Results Result Diagram: 11/16/16 0500 11/16/16 0500 Results 24 hrs Laboratory Tests Test 11/16/16 05:00 11/16/16 07:00 11/16/16 21:00 White Blood Count 19.1 H Red Blood Count 3.12 L Hemoglobin 8.0 L Hematocrit 28.0 L Mean Corpuscular Volume 89.7 Mean Corpuscular Hemoglobin 25.6 L Mean Corpuscular Hemoglobin Concent 28.6 L Red Cell Distribution Width 18.0 H Platelet Count 476 H Mean Platelet Volume 9.4 Neutrophils % 78.2 H Lymphocytes % 9.0 L Monocytes % 9.5 Eosinophils % 2.2 Basophils % 0.4 Nucleated Red Blood Cells % 0.0 Neutrophils # 14.9 H Lymphocytes # 1.7 Monocytes # 1.8 H Eosinophils # 0.4 Basophils # 0.1 Nucleated Red Blood Cells # 0.0 Sodium Level 131 L Potassium Level 4.0 Chloride Level 99 Carbon Dioxide Level 29 Anion Gap 7 L Blood Urea Nitrogen 16 Creatinine 0.41 L Glucose Level 125 Calcium Level 8.6 Blood Gas Specimen Source Blood arterial Arterial Blood Date Drawn 11/16/2016 7:20:22 AM Arterial Blood pH (Temp corrected) 7.406 Arterial Blood pCO2 (Temp correct) 47.8 H Arterial Blood pO2 (Temp corrected) 83.2 Arterial Blood HCO3 29.3 H Arterial Blood Base Excess 4.0 H Arterial Blood Oxygen Saturation 96.1 Nader Test ACCEPTAB Arterial Blood Gas Puncture Site Right Radial Arterial Blood Carboxyhemoglobin 0.3 Arterial Blood Methemoglobin 0.5 Blood Gas A-a O2 Differential 96.3 H Oxyhemoglobin Percent 95.3 Total Hemoglobin 10.8 L Blood Gas Temperature 37.0 Blood Gas Modality NASAL CANNULA FiO2 33.0 Blood Gas Notified Whom JLD Blood Gas Notified Time 11/16/2016 7:52:52 AM Vancomycin Level Trough 15.5 Medications Medications Current Medications Ondansetron HCl (Zofran Inj) 4 mg Q6 PRN IV NAUSEA AND/OR VOMITING; Start 09/26 at 22:30 Collagenase (Santyl) 1 applic DAILY TOP Last administered on 11/15/16 08:28; Admin Dose 1 APPLIC; Start 09/27/16 at 09:00 Collagenase (Santyl) 1 applic PRN PRN TOP SOILED OR DISLODGED DRESSING; Start 09/27/16 at 05:00 Lansoprazole (Prevacid) 30 mg DAILY@06 GTB Last administered on 11/16/16 05:13 ; Admin Dose 30 MG; Start 09/28/16 at 06:00 Cromolyn Sodium (Nasalcrom) 1 spray QID NASAL Last administered on 11/16/16 20: 52; Admin Dose 1 SPRAY; Start 09/29/16 at 11:02 Phenol (Cepastat Lozenge) 1 lozenge Q2H PRN MT SORE THROAT Last administered on 11/02/16 01:02; Admin Dose 1 LOZENGE; Start 10/01/16 at 19:00 IV Flush (NS 10 ml) 10 ml PRN PRN IV IV PROTOCOL Last administered on 08:08; Admin Dose 10 ML; Start 10/02/16 at 19:00 Hydromorphone HCl (Dilaudid) 0.5 mg Q4H PRN IV PAIN Last administered on 18:31; Admin Dose 0.5 MG; Start 10/06/16 at 18:30 Potassium Chloride 20 meq 20 meq DAILY GTB Last administered on 11/16/16 09:01 ; Admin Dose 20 MEQ; Start 10/30/16 at 12:00 Dextrose/Sodium Chloride 1,000 ml @ 75 mls/hr [id number] IV Last administered on 11/16/16 21:31; Admin Dose 75 MLS/HR; Start 11/12/16 at 04:30 Norepinephrine/ Dextrose (Levophed/D5W) 500 ml @ 1.87 mls/hr TITRATE IV Last administered on 11/15/16 17:45; Admin Dose 11.25 MLS/HR; Start 11/12/16 at 04: 30 Metoprolol Tartrate 25 mg 25 mg Q6 PRN GTB For HR > 130 Last administered on 21:09; Admin Dose 25 MG; Start 11/12/16 at 22:30 Meropenem 100 ml @ 200 mls/hr Q8 IVPB Last administered on 11/16/16 21:30; Admin Dose 200 MLS/HR; Start 11/14/16 at 14:00 Vancomycin HCl/ Sodium Chloride (Vancocin/NS) 150 ml @ 75 mls/hr Q12H IVPB Last administered on 11/16/16 22:05; Admin Dose 75 MLS/HR; Start 11/15/16 at 10: 00 Acetaminophen (Tylenol Liquid) 650 mg Q6H PRN PEG PAIN AND OR ELEVATED TEMP; Start 11/16/16 at 20:04 Alprazolam (Xanax) 0.5 mg Q12H PRN PEG ANXIETY Last administered on 11/16/16 21 :20; Admin Dose 0.5 MG; Start 11/16/16 at 20:30 Ascorbic Acid (Vitamin C) 500 mg BID PEG Last administered on 11/16/16 20:53; Admin Dose 500 MG; Start 11/16/16 at 21:00 Atorvastatin Calcium (Lipitor) 20 mg QHS PEG Last administered on 11/16/16 20: 52; Admin Dose 20 MG; Start 11/16/16 at 21:00 Diazepam (Valium) 10 mg DAILY PEG ; Start 11/17/16 at 09:00 Duloxetine HCl (Cymbalta) 20 mg DAILY PEG ; Start 11/17/16 at 09:00 Fluconazole (Diflucan) 100 mg DAILY PEG ; Start 11/17/16 at 09:00 Lactobacillus Acidophilus (Florajen3 Capsule) 1 each TID PEG Last administered on 11/16/16 20:53; Admin Dose 1 EACH; Start 11/16/16 at 21:00 Metronidazole (Flagyl) 500 mg Q8 PEG Last administered on 11/16/16 21:30; Admin Dose 500 MG; Start 11/16/16 at 22:00 Promethazine HCl/ Codeine (Phenergan/ Codeine) 10 ml BID PRN PEG COUGH Last administered on 11/16/16 20:53; Admin Dose 10 ML; Start 11/16/16 at 20:00 Zolpidem Tartrate (Ambien) 5 mg QHS PRN PEG INSOMNIA; Start 11/16/16 at 20:00 Docusate Sodium (Colace Liquid Cup) 100 mg Q12 PRN GTB CONSTIPATION; Start 11/16 at 20:00 DYLLAN CARRION MD Nov 16, 2016 23:06
--- NOTE | 2016-11-16 23:21 | CONS ---
Date/Time of Note Date/Time of Note DATE: 11/12/16 TIME: 16:21 VK LE Assessment/Plan Assessment/Plan Chief Complaint/Hosp Course Left lung squamous carcinoma. The patient is not a candidate for chemotherapy. Anemia of chronic disease. monitor blood count closely transfuse as needed to keep HB above 8 Acute respiratory insufficiency requiring BiPAP. Acute shock, septic versus hypovolemic. tachycardia with episode of SVT. Chronic obstructive pulmonary disease. Dysphagia with G-tube. Continue current G-tube feeding. Hypothyroidism. Continue Synthroid. Problems: Consultation Date/Type/Reason Admit Date/Time Sep 26, 2016 at 20:07 Initial Consult Date 10/19/16 [facility] Referring Provider: DRE LOBATO MD 24 HR Interval Summary Free Text/Dictation ALL NOTED D/W RN COUNT FRANKY NO BLEEDING Exam/Review of Systems Vital Signs Vitals Vital Signs Date Time Temp Pulse Resp B/P Pulse Ox O2 Delivery O2 Flow Rate FiO2 11/16/16 23:00 123 38 94/73 99 Nasal Cannula 4.0 11/16/16 20:00 99.5 11/15/16 23:55 50 Intake and Output 11/15/16 11/15/16 11/16/16 15:00 23:00 07:00 Intake Total 1186.87 ml 1598.75 ml 1395.00 ml Output Total 405 ml 610 ml 1155 ml Balance 781.87 ml 988.75 ml 240.00 ml Exam GENERAL: NAD, cachectic elderly female, resting in bed, seems comfortable HEENT: Head atraumatic, normocephalic. Sclerae anicteric. Buccal mucosa dry. NECK: Supple, trachea midline. CHEST: Rise symmetrical. Breath sounds diminished to bases bilaterally HEART: S1, S2. ABDOMEN: Soft. Bowel sounds present. GT intact EXTREMITIES: Wasted without cyanosis. Results Result Diagram: 11/16/16 0500 11/16/16 0500 Results 24 hrs Laboratory Tests Test 11/16/16 05:00 11/16/16 07:00 11/16/16 21:00 White Blood Count 19.1 H Red Blood Count 3.12 L Hemoglobin 8.0 L Hematocrit 28.0 L Mean Corpuscular Volume 89.7 Mean Corpuscular Hemoglobin 25.6 L Mean Corpuscular Hemoglobin Concent 28.6 L Red Cell Distribution Width 18.0 H Platelet Count 476 H Mean Platelet Volume 9.4 Neutrophils % 78.2 H Lymphocytes % 9.0 L Monocytes % 9.5 Eosinophils % 2.2 Basophils % 0.4 Nucleated Red Blood Cells % 0.0 Neutrophils # 14.9 H Lymphocytes # 1.7 Monocytes # 1.8 H Eosinophils # 0.4 Basophils # 0.1 Nucleated Red Blood Cells # 0.0 Sodium Level 131 L Potassium Level 4.0 Chloride Level 99 Carbon Dioxide Level 29 Anion Gap 7 L Blood Urea Nitrogen 16 Creatinine 0.41 L Glucose Level 125 Calcium Level 8.6 Blood Gas Specimen Source Blood arterial Arterial Blood Date Drawn 11/16/2016 7:20:22 AM Arterial Blood pH (Temp corrected) 7.406 Arterial Blood pCO2 (Temp correct) 47.8 H Arterial Blood pO2 (Temp corrected) 83.2 Arterial Blood HCO3 29.3 H Arterial Blood Base Excess 4.0 H Arterial Blood Oxygen Saturation 96.1 Nader Test ACCEPTAB Arterial Blood Gas Puncture Site Right Radial Arterial Blood Carboxyhemoglobin 0.3 Arterial Blood Methemoglobin 0.5 Blood Gas A-a O2 Differential 96.3 H Oxyhemoglobin Percent 95.3 Total Hemoglobin 10.8 L Blood Gas Temperature 37.0 Blood Gas Modality NASAL CANNULA FiO2 33.0 Blood Gas Notified Whom JLD Blood Gas Notified Time 11/16/2016 7:52:52 AM Vancomycin Level Trough 15.5 Medications Medications Current Medications Ondansetron HCl (Zofran Inj) 4 mg Q6 PRN IV NAUSEA AND/OR VOMITING; Start 09/26 at 22:30 Collagenase (Santyl) 1 applic DAILY TOP Last administered on 11/15/16 08:28; Admin Dose 1 APPLIC; Start 09/27/16 at 09:00 Collagenase (Santyl) 1 applic PRN PRN TOP SOILED OR DISLODGED DRESSING; Start 09/27/16 at 05:00 Lansoprazole (Prevacid) 30 mg DAILY@06 GTB Last administered on 11/16/16 05:13 ; Admin Dose 30 MG; Start 09/28/16 at 06:00 Cromolyn Sodium (Nasalcrom) 1 spray QID NASAL Last administered on 11/16/16 20: 52; Admin Dose 1 SPRAY; Start 09/29/16 at 11:02 Phenol (Cepastat Lozenge) 1 lozenge Q2H PRN MT SORE THROAT Last administered on 11/02/16 01:02; Admin Dose 1 LOZENGE; Start 10/01/16 at 19:00 IV Flush (NS 10 ml) 10 ml PRN PRN IV IV PROTOCOL Last administered on 08:08; Admin Dose 10 ML; Start 10/02/16 at 19:00 Hydromorphone HCl (Dilaudid) 0.5 mg Q4H PRN IV PAIN Last administered on 18:31; Admin Dose 0.5 MG; Start 10/06/16 at 18:30 Potassium Chloride 20 meq 20 meq DAILY GTB Last administered on 11/16/16 09:01 ; Admin Dose 20 MEQ; Start 10/30/16 at 12:00 Dextrose/Sodium Chloride 1,000 ml @ 75 mls/hr [id number] IV Last administered on 11/16/16 21:31; Admin Dose 75 MLS/HR; Start 11/12/16 at 04:30 Norepinephrine/ Dextrose (Levophed/D5W) 500 ml @ 1.87 mls/hr TITRATE IV Last administered on 11/15/16 17:45; Admin Dose 11.25 MLS/HR; Start 11/12/16 at 04: 30 Metoprolol Tartrate 25 mg 25 mg Q6 PRN GTB For HR > 130 Last administered on 21:09; Admin Dose 25 MG; Start 11/12/16 at 22:30 Meropenem 100 ml @ 200 mls/hr Q8 IVPB Last administered on 11/16/16 21:30; Admin Dose 200 MLS/HR; Start 11/14/16 at 14:00 Vancomycin HCl/ Sodium Chloride (Vancocin/NS) 150 ml @ 75 mls/hr Q12H IVPB Last administered on 11/16/16 22:05; Admin Dose 75 MLS/HR; Start 11/15/16 at 10: 00 Acetaminophen (Tylenol Liquid) 650 mg Q6H PRN PEG PAIN AND OR ELEVATED TEMP; Start 11/16/16 at 20:04 Alprazolam (Xanax) 0.5 mg Q12H PRN PEG ANXIETY Last administered on 11/16/16 21 :20; Admin Dose 0.5 MG; Start 11/16/16 at 20:30 Ascorbic Acid (Vitamin C) 500 mg BID PEG Last administered on 11/16/16 20:53; Admin Dose 500 MG; Start 11/16/16 at 21:00 Atorvastatin Calcium (Lipitor) 20 mg QHS PEG Last administered on 11/16/16 20: 52; Admin Dose 20 MG; Start 11/16/16 at 21:00 Diazepam (Valium) 10 mg DAILY PEG ; Start 11/17/16 at 09:00 Duloxetine HCl (Cymbalta) 20 mg DAILY PEG ; Start 11/17/16 at 09:00 Fluconazole (Diflucan) 100 mg DAILY PEG ; Start 11/17/16 at 09:00 Lactobacillus Acidophilus (Florajen3 Capsule) 1 each TID PEG Last administered on 11/16/16 20:53; Admin Dose 1 EACH; Start 11/16/16 at 21:00 Metronidazole (Flagyl) 500 mg Q8 PEG Last administered on 11/16/16 21:30; Admin Dose 500 MG; Start 11/16/16 at 22:00 Promethazine HCl/ Codeine (Phenergan/ Codeine) 10 ml BID PRN PEG COUGH Last administered on 11/16/16 20:53; Admin Dose 10 ML; Start 11/16/16 at 20:00 Zolpidem Tartrate (Ambien) 5 mg QHS PRN PEG INSOMNIA; Start 11/16/16 at 20:00 Docusate Sodium (Colace Liquid Cup) 100 mg Q12 PRN GTB CONSTIPATION; Start 11/16 at 20:00 DYLLAN CARRION MD Nov 16, 2016 23:21
[2016-11-17] VITALS (95 sets, daily range): BP systolic 74–126; BP diastolic 54–97; PULSE 105–171; RESP 22–47
[2016-11-17] MEDS: HYDROmorphONE 1 MG/ML SYG IV PRN ×4 (04:20→21:39)
[2016-11-17 04:45] LABS: ADD SCAN DIFF NO
[2016-11-17 05:00] LABS: ABNORMAL IP MESSAGE 1; BASOPHIL # 0.1 10^3/ul (0.0-0.1); BASOPHILS % 0.5 % (0.0-2.0); EOSINOPHILS # 0.3 10^3/ul (0.0-0.5); EOSINOPHILS % 1.9 % (0.0-7.0); HEMATOCRIT 27.3 % (37.0-47.0); LYMPHOCYTES % 11.4 % (15.0-51.0); MEAN CORPUSCULAR HEMOGLOBIN 25.9 pg (29.0-33.0); MEAN CORPUSCULAR HGB CONC 29.3 g/dl (32.0-37.0); MEAN CORPUSCULAR VOLUME 88.3 fl (82.0-101.0); MEAN PLATELET VOLUME 9.7 fl (7.4-10.4); MONOCYTE # 1.9 10^3/ul (0.3-0.9); MONOCYTES % 10.7 % (0.0-11.0); NEUTROPHIL # 13.3 10^3/ul (1.6-7.5); NEUTROPHILS % 74.9 % (39.0-77.0); PLATELET COUNT 494 10^3/UL (140-415); RED BLOOD COUNT 3.09 10^6/ul (4.20-5.40); WHITE BLOOD COUNT 17.7 10^3/ul (4.8-10.8)
[2016-11-17 05:25] LABS: ALBUMIN 2.7 g/dl (3.3-4.9); ALBUMIN/GLOBULIN RATIO 0.57; CALCIUM 8.5 mg/dl (8.4-10.2); CREATININE 0.38 mg/dl (0.44-1.00); POTASSIUM 3.9 mmol/L (3.5-5.1); TOTAL PROTEIN 7.4 g/dl (6.1-8.1)
[2016-11-17] MEDS: metroNIDAZOLE 500 MG TAB PEG SCH ×3 (05:34→21:12)
[2016-11-17] MEDS: MEROPENEM 500 MG/100 ML (PMX) 100 ML IVPB SCH ×3 (05:34→21:13)
[2016-11-17] MEDS: LANSOPRAZOLE 30 MG CAP GTB SCH (05:34)
[2016-11-17] MEDS: LEVOTHYROXINE 125 MCG TAB PEG SCH (06:08)
[2016-11-17] MEDS: CROMOLYN 4% 26ML NAS INH NASAL SCH ×4 (09:19→21:14)
[2016-11-17] MEDS: POTASSIUM CHLORIDE 20 MEQ POWDER FOR ORAL SOLN GTB SCH (09:20)
[2016-11-17] MEDS: ASCORBIC ACID 500 MG TAB PEG SCH ×2 (09:20→21:12)
[2016-11-17] MEDS: DULOXETINE 20 MG CAP DR PEG SCH (09:25)
[2016-11-17] MEDS: DIAZEPAM 5 MG TAB PEG SCH (09:25)
[2016-11-17] MEDS: L ACIDOPHIL/B LACTIS/B LONGUM CAPSULE PEG SCH ×3 (09:26→21:12)
[2016-11-17] MEDS: FLUCONAZOLE 100 MG TAB PEG SCH (09:26)
--- NOTE | 2016-11-17 10:21 | CONS ---
Date/Time of Note Date/Time of Note DATE: 11/17/16 TIME: 10:17 Assessment/Plan Assessment/Plan Additional Assessment/Plan Assessment and recommendations; 1. Patient admitted for respiratory failure now doing very well off BiPAP maintained on 2 L nasal cannula. 2. Ongoing sepsis from severe sacral decubitus ulcers. 3. History of lung cancer. 4. History of hypo-thyroidism, hypertension, COPD. Continue current treatment. Wean down Levophed as tolerated. Consultation Date/Type/Reason Admit Date/Time Sep 26, 2016 at 20:07 Initial Consult Date 11/14/16 Type of Consultation: Pulmonary/critical care Referring Provider: DRE LOBATO MD 24 HR Interval Summary Free Text/Dictation Patient condition is continually improving. She is completely awake alert. Denies any shortness of breath, any pain. General exam; elderly lady, awake alert currently in no distress. Exam/Review of Systems Vital Signs Vitals Vital Signs Date Time Temp Pulse Resp B/P Pulse Ox O2 Delivery O2 Flow Rate FiO2 11/17/16 09:00 131 34 91/71 100 Nasal Cannula 4.0 11/17/16 08:00 98.4 11/15/16 23:55 50 Intake and Output 11/16/16 11/16/16 11/17/16 15:00 23:00 07:00 Intake Total 480 ml 2181.23 ml 1231.87 ml Output Total 1535 ml 1090 ml 1025 ml Balance -1055 ml 1091.23 ml 206.87 ml Exam HEENT exam is; supple neck, no JVD. No lymphadenopathy. Midline trachea. No thyromegaly. Pupils are small bilaterally. She has multiple carious teeth. Chest examination; diminished but clear breath sound. S1-S2 audible, no murmurs. Regular rhythm. Abdomen exam is; soft, nontender. No organomegaly. Bowel sounds audible. Back exam; there is a wound VAC applied on the sacrum Extremity exam; no peripheral edema. TAXATION CONSULTANT examination; patient is awake alert and exhibiting no focal motor deficit. Results Result Diagram: 11/17/16 0320 11/17/16 0320 Results 24 hrs Laboratory Tests Test 11/16/16 21:00 11/17/16 03:20 Vancomycin Level Trough 15.5 White Blood Count 17.7 H Red Blood Count 3.09 L Hemoglobin 8.0 L Hematocrit 27.3 L Mean Corpuscular Volume 88.3 Mean Corpuscular Hemoglobin 25.9 L Mean Corpuscular Hemoglobin Concent 29.3 L Red Cell Distribution Width 18.0 H Platelet Count 494 H Mean Platelet Volume 9.7 Neutrophils % 74.9 Lymphocytes % 11.4 L Monocytes % 10.7 Eosinophils % 1.9 Basophils % 0.5 Nucleated Red Blood Cells % 0.0 Neutrophils # 13.3 H Lymphocytes # 2.0 Monocytes # 1.9 H Eosinophils # 0.3 Basophils # 0.1 Nucleated Red Blood Cells # 0.0 Sodium Level 136 Potassium Level 3.9 Chloride Level 97 Carbon Dioxide Level 30 Anion Gap 13 Blood Urea Nitrogen 16 Creatinine 0.38 L Glucose Level 126 Calcium Level 8.5 Total Bilirubin 0.0 L Direct Bilirubin 0.00 Indirect Bilirubin 0.0 Aspartate Amino Transf (AST/SGOT) 38 Alanine Aminotransferase (ALT/SGPT) 48 Alkaline Phosphatase 256 H Total Protein 7.4 Albumin 2.7 L Globulin 4.70 H Albumin/Globulin Ratio 0.57 Medications Medications Current Medications Ondansetron HCl (Zofran Inj) 4 mg Q6 PRN IV NAUSEA AND/OR VOMITING; Start 09/26 at 22:30 Collagenase (Santyl) 1 applic DAILY TOP Last administered on 11/15/16 08:28; Admin Dose 1 APPLIC; Start 09/27/16 at 09:00 Collagenase (Santyl) 1 applic PRN PRN TOP SOILED OR DISLODGED DRESSING; Start 09/27/16 at 05:00 Lansoprazole (Prevacid) 30 mg DAILY@06 GTB Last administered on 11/17/16 05:34 ; Admin Dose 30 MG; Start 09/28/16 at 06:00 Cromolyn Sodium (Nasalcrom) 1 spray QID NASAL Last administered on 11/17/16 09: 19; Admin Dose 1 SPRAY; Start 09/29/16 at 11:02 Phenol (Cepastat Lozenge) 1 lozenge Q2H PRN MT SORE THROAT Last administered on 11/02/16 01:02; Admin Dose 1 LOZENGE; Start 10/01/16 at 19:00 IV Flush (NS 10 ml) 10 ml PRN PRN IV IV PROTOCOL Last administered on 11/17/16 03:20; Admin Dose 10 ML; Start 10/02/16 at 19:00 Hydromorphone HCl (Dilaudid) 0.5 mg Q4H PRN IV PAIN Last administered on 09:27; Admin Dose 0.5 MG; Start 10/06/16 at 18:30 Potassium Chloride 20 meq 20 meq DAILY GTB Last administered on 11/17/16 09:20 ; Admin Dose 20 MEQ; Start 10/30/16 at 12:00 Dextrose/Sodium Chloride 1,000 ml @ 75 mls/hr [id number] IV Last administered on 11/16/16 21:31; Admin Dose 75 MLS/HR; Start 11/12/16 at 04:30 Norepinephrine/ Dextrose (Levophed/D5W) 500 ml @ 1.87 mls/hr TITRATE IV Last administered on 11/17/16 04:27; Admin Dose 11.25 MLS/HR; Start 11/12/16 at 04:30 Metoprolol Tartrate 25 mg 25 mg Q6 PRN GTB For HR > 130 Last administered on 21:09; Admin Dose 25 MG; Start 11/12/16 at 22:30 Meropenem 100 ml @ 200 mls/hr Q8 IVPB Last administered on 11/17/16 05:34; Admin Dose 200 MLS/HR; Start 11/14/16 at 14:00 Vancomycin HCl/ Sodium Chloride (Vancocin/NS) 150 ml @ 75 mls/hr Q12H IVPB Last administered on 11/16/16 22:05; Admin Dose 75 MLS/HR; Start 11/15/16 at 10: 00 Acetaminophen (Tylenol Liquid) 650 mg Q6H PRN PEG PAIN AND OR ELEVATED TEMP; Start 11/16/16 at 20:04 Alprazolam (Xanax) 0.5 mg Q12H PRN PEG ANXIETY Last administered on 11/16/16 21 :20; Admin Dose 0.5 MG; Start 11/16/16 at 20:30 Ascorbic Acid (Vitamin C) 500 mg BID PEG Last administered on 11/17/16 09:20; Admin Dose 500 MG; Start 11/16/16 at 21:00 Atorvastatin Calcium (Lipitor) 20 mg QHS PEG Last administered on 11/16/16 20: 52; Admin Dose 20 MG; Start 11/16/16 at 21:00 Diazepam (Valium) 10 mg DAILY PEG Last administered on 11/17/16 09:25; Admin Dose 10 MG; Start 11/17/16 at 09:00 Duloxetine HCl (Cymbalta) 20 mg DAILY PEG Last administered on 11/17/16 09:25; Admin Dose 20 MG; Start 11/17/16 at 09:00 Fluconazole (Diflucan) 100 mg DAILY PEG Last administered on 11/17/16 09:26; Admin Dose 100 MG; Start 11/17/16 at 09:00 Lactobacillus Acidophilus (Florajen3 Capsule) 1 each TID PEG Last administered on 11/17/16 09:26; Admin Dose 1 EACH; Start 11/16/16 at 21:00 Metronidazole (Flagyl) 500 mg Q8 PEG Last administered on 11/17/16 05:34; Admin Dose 500 MG; Start 11/16/16 at 22:00 Promethazine HCl/ Codeine (Phenergan/ Codeine) 10 ml BID PRN PEG COUGH Last administered on 11/16/16 20:53; Admin Dose 10 ML; Start 11/16/16 at 20:00 Zolpidem Tartrate (Ambien) 5 mg QHS PRN PEG INSOMNIA; Start 11/16/16 at 20:00 Docusate Sodium (Colace Liquid Cup) 100 mg Q12 PRN GTB CONSTIPATION; Start 11/16 at 20:00 REGINE BUCKLEY 2, 2017 10:21
[2016-11-17] MEDS: COLLAGENASE 30 GM TUBE TOP SCH (10:55)
[2016-11-17] MEDS: VANCOMYCIN 750 MG in SOD CHLORIDE 0.9% 150 ML IVPB SCH ×2 (11:13→21:40)
--- NOTE | 2016-11-17 12:36 | CONS ---
Date/Time of Note Date/Time of Note DATE: 11/17/16 TIME: 12:35 Assessment/Plan Assessment/Plan Chief Complaint/Hosp Course Sepsis Respiratory failure Intermittent hypotension Diastolic congestive heart failure Pulmonary hypertension Preserved ejection fraction Tricuspid valve regurgitation Lung cancer Problems: Additional Assessment/Plan Sinustachycardia due to comorbidities. continue current meds. wean pressors. Consultation Date/Type/Reason Admit Date/Time Sep 26, 2016 at 20:07 Initial Consult Date 11/14/16 Type of Consultation: cv Referring Provider: DRE LOBATO MD 24 HR Interval Summary Free Text/Dictation awake, no distress Detailed Summary Respiratory: shortness of breath Cardiovascular: no complaints Gastrointestinal: no complaints Musculoskeletal: no complaints Skin: no complaints Neurologic: no complaints Exam/Review of Systems Vital Signs Vitals Vital Signs Date Time Temp Pulse Resp B/P Pulse Ox O2 Delivery O2 Flow Rate FiO2 11/17/16 09:00 131 34 91/71 100 Nasal Cannula 4.0 11/17/16 08:00 98.4 11/15/16 23:55 50 Intake and Output 11/16/16 11/16/16 11/17/16 15:00 23:00 07:00 Intake Total 480 ml 2181.23 ml 1231.87 ml Output Total 1535 ml 1090 ml 1025 ml Balance -1055 ml 1091.23 ml 206.87 ml Exam Constitutional: frail Head: atraumatic, normocephalic Neck: supple Respiratory: diminished breath sounds Cardiovascular: gallop, regular rate and rhythm Gastrointestinal: soft Musculoskeletal: nl extremities to inspection Extremities: other (reduced pulses) Neurological: MATHEMATICAL PHYSICIST II-XII intact Results Result Diagram: 11/17/16 0320 11/17/16 0320 Results 24 hrs Laboratory Tests Test 11/16/16 21:00 11/17/16 03:20 Vancomycin Level Trough 15.5 White Blood Count 17.7 H Red Blood Count 3.09 L Hemoglobin 8.0 L Hematocrit 27.3 L Mean Corpuscular Volume 88.3 Mean Corpuscular Hemoglobin 25.9 L Mean Corpuscular Hemoglobin Concent 29.3 L Red Cell Distribution Width 18.0 H Platelet Count 494 H Mean Platelet Volume 9.7 Neutrophils % 74.9 Lymphocytes % 11.4 L Monocytes % 10.7 Eosinophils % 1.9 Basophils % 0.5 Nucleated Red Blood Cells % 0.0 Neutrophils # 13.3 H Lymphocytes # 2.0 Monocytes # 1.9 H Eosinophils # 0.3 Basophils # 0.1 Nucleated Red Blood Cells # 0.0 Sodium Level 136 Potassium Level 3.9 Chloride Level 97 Carbon Dioxide Level 30 Anion Gap 13 Blood Urea Nitrogen 16 Creatinine 0.38 L Glucose Level 126 Calcium Level 8.5 Total Bilirubin 0.0 L Direct Bilirubin 0.00 Indirect Bilirubin 0.0 Aspartate Amino Transf (AST/SGOT) 38 Alanine Aminotransferase (ALT/SGPT) 48 Alkaline Phosphatase 256 H Total Protein 7.4 Albumin 2.7 L Globulin 4.70 H Albumin/Globulin Ratio 0.57 Medications Medications Current Medications Ondansetron HCl (Zofran Inj) 4 mg Q6 PRN IV NAUSEA AND/OR VOMITING; Start 09/26 at 22:30 Collagenase (Santyl) 1 applic DAILY TOP Last administered on 11/17/16 10:55; Admin Dose 1 APPLIC; Start 09/27/16 at 09:00 Collagenase (Santyl) 1 applic PRN PRN TOP SOILED OR DISLODGED DRESSING; Start 09/27/16 at 05:00 Lansoprazole (Prevacid) 30 mg DAILY@06 GTB Last administered on 11/17/16 05:34 ; Admin Dose 30 MG; Start 09/28/16 at 06:00 Cromolyn Sodium (Nasalcrom) 1 spray QID NASAL Last administered on 11/17/16 09: 19; Admin Dose 1 SPRAY; Start 09/29/16 at 11:02 Phenol (Cepastat Lozenge) 1 lozenge Q2H PRN MT SORE THROAT Last administered on 11/02/16 01:02; Admin Dose 1 LOZENGE; Start 10/01/16 at 19:00 IV Flush (NS 10 ml) 10 ml PRN PRN IV IV PROTOCOL Last administered on 11/17/16 03:20; Admin Dose 10 ML; Start 10/02/16 at 19:00 Hydromorphone HCl (Dilaudid) 0.5 mg Q4H PRN IV PAIN Last administered on 09:27; Admin Dose 0.5 MG; Start 10/06/16 at 18:30 Potassium Chloride 20 meq 20 meq DAILY GTB Last administered on 11/17/16 09:20 ; Admin Dose 20 MEQ; Start 10/30/16 at 12:00 Dextrose/Sodium Chloride 1,000 ml @ 75 mls/hr [id number] IV Last administered on 11/16/16 21:31; Admin Dose 75 MLS/HR; Start 11/12/16 at 04:30 Norepinephrine/ Dextrose (Levophed/D5W) 500 ml @ 1.87 mls/hr TITRATE IV Last administered on 11/17/16 04:27; Admin Dose 11.25 MLS/HR; Start 11/12/16 at 04:30 Metoprolol Tartrate 25 mg 25 mg Q6 PRN GTB For HR > 130 Last administered on 21:09; Admin Dose 25 MG; Start 11/12/16 at 22:30 Meropenem 100 ml @ 200 mls/hr Q8 IVPB Last administered on 11/17/16 05:34; Admin Dose 200 MLS/HR; Start 11/14/16 at 14:00 Vancomycin HCl/ Sodium Chloride (Vancocin/NS) 150 ml @ 75 mls/hr Q12H IVPB Last administered on 11/17/16 11:13; Admin Dose 75 MLS/HR; Start 11/15/16 at 10: 00 Acetaminophen (Tylenol Liquid) 650 mg Q6H PRN PEG PAIN AND OR ELEVATED TEMP; Start 11/16/16 at 20:04 Alprazolam (Xanax) 0.5 mg Q12H PRN PEG ANXIETY Last administered on 11/16/16 21 :20; Admin Dose 0.5 MG; Start 11/16/16 at 20:30 Ascorbic Acid (Vitamin C) 500 mg BID PEG Last administered on 11/17/16 09:20; Admin Dose 500 MG; Start 11/16/16 at 21:00 Atorvastatin Calcium (Lipitor) 20 mg QHS PEG Last administered on 11/16/16 20: 52; Admin Dose 20 MG; Start 11/16/16 at 21:00 Diazepam (Valium) 10 mg DAILY PEG Last administered on 11/17/16 09:25; Admin Dose 10 MG; Start 11/17/16 at 09:00 Duloxetine HCl (Cymbalta) 20 mg DAILY PEG Last administered on 11/17/16 09:25; Admin Dose 20 MG; Start 11/17/16 at 09:00 Fluconazole (Diflucan) 100 mg DAILY PEG Last administered on 11/17/16 09:26; Admin Dose 100 MG; Start 11/17/16 at 09:00 Lactobacillus Acidophilus (Florajen3 Capsule) 1 each TID PEG Last administered on 11/17/16 09:26; Admin Dose 1 EACH; Start 11/16/16 at 21:00 Metronidazole (Flagyl) 500 mg Q8 PEG Last administered on 11/17/16 05:34; Admin Dose 500 MG; Start 11/16/16 at 22:00 Promethazine HCl/ Codeine (Phenergan/ Codeine) 10 ml BID PRN PEG COUGH Last administered on 11/16/16 20:53; Admin Dose 10 ML; Start 11/16/16 at 20:00 Zolpidem Tartrate (Ambien) 5 mg QHS PRN PEG INSOMNIA; Start 11/16/16 at 20:00 Docusate Sodium (Colace Liquid Cup) 100 mg Q12 PRN GTB CONSTIPATION; Start 11/16 at 20:00 KLEBER DOAN MD Nov 17, 2016 12:36
--- NOTE | 2016-11-17 13:17 | PN ---
DATE: 11/17/2016 INFECTIOUS DISEASE PROGRESS NOTE SUBJECTIVE: No events overnight. The patient is awake, comfortable on nasal cannula, with low-grad e fevers. T-max 99.5, pulse 120, respirations 43, blood pressure 99/71, , saturations 98%. She remains on Levophed. WBC today is 17.7, H and H 8 and 27.3, platelets 494. No shift, no bands. B UN 16, creatinine 0.38. ANTIMICROBIALS: 1. Fluconazole. 2. Vancomycin. 3. Meropenem. INDWELLINGS: PICC line, PEG, George. PHYSICAL EXAMINATION: GENERAL: Chronically ill-appearing, cachectic, elderly woman, who is awake, in no distress. HEENT: Head atraumatic, normocephalic. Sclerae anicteric. Buccal mucosa dry. NECK: Supple. Trachea midline. CHEST: Chest rise is symmetrical. Breath sounds diminished to the bases. HEART: S1, S2. ABDOMEN: Soft, bowel tones present. EXTREMITIES: Without cyanosis. ASSESSMENT: 1. Septic shock. 2. Healthcare-associated pneumonia. 3. Acute respiratory failure. 4. Lung cancer. 5. Unstageable sacral wound, status post debridement, with wound VAC application. 6. Cachexia. PLAN: The patient remains hemodynamically unstable, covered with appropriate antimicrobials. Progn osis is poor. Continue the present care. Dictated By: RUBIN MAYEN FIELD PROPERTY LOSS SPECIALIST for JUAN COLLIER/NTS Conf#: [id number] DID#: [id number]
[2016-11-17] MEDS: ALPRAZOLAM 0.25 MG TAB PEG PRN (13:37)
--- NOTE | 2016-11-17 14:01 | PN ---
DATE: 11/17/2016 SUBJECTIVE: Follow up on chronic obstructive pulmonary disease and lung cancer. Patient in shock. The patient is continued on Levophed for hemodynamic support. The patient is currently on nasal robbin rosa, off BiPAP. Patient is slightly tachycardic, with a respiratory rate in the 30s. Tolerates G-t ube feeding well. No fever, nausea or vomiting reported per RN. OBJECTIVE: VITAL SIGNS: Temperature is 97.7, pulse 122, respiratory rate is 39, blood pressure 115/81, oxygen saturation is 92% on 4 liters nasal cannula. GENERAL: Cachectic female, currently is awake, alert to name and situation. HEENT: Head is atraumatic, normocephalic. NECK: Supple. LUNGS: With diminished air entry bilaterally. HEART: Normal S1, S2. No murmurs. The patient is tachycardic. ABDOMEN: Flat, soft. Bowel sounds present. G-tube with intact stoma. EXTREMITIES: No edema. SKIN: Patient has multiple decubitus ulcers, including the bilateral buttocks and bilateral lower e xtremities. LABORATORY DATA FOR TODAY: CBC 17.7, hemoglobin 8.0, hematocrit 27.3, platelets 494. Chemistry: S odium is 136, potassium 3.9, chloride 97, carbon dioxide 30, anion gap 15, BUN is 16, creatinine 0.3 8, glucose 126, calcium 8.5. ASSESSMENT AND PLAN: 1. Sepsis with shock. Dr. Coleman is following the patient in infectious disease consultation. Con tinue antibiotics per ID. 2. Acute respiratory failure. Dr. Neri is following in pulmonology consultation. Continue breath ing treatments and bronchodilators. 3. Left lung squamous carcinoma. 4. Chronic obstructive pulmonary disease. 5. Dysphagia, with G-tube placement. 6. Hypothyroidism. Continue Synthroid. 7. Anemia of chronic disease. 8. Multiple wounds. Continue the current wound care, including wound VAC. 9. Acute on chronic pain. Continue the current pain medication. 10. Continue sequential compression devices for deep venous thrombosis prophylaxis and Prevacid for peptic ulcer disease prophylaxis. Further recommendations based on clinical course. Plan of care discussed with Dr. Lobato. Dictated By: REBECCA ISLAS SUPERVISOR SULFURIC ACID PLANT for DRE LOBATO MD SR/NTS Conf#: [id number] [facility]#: [id number]
--- NOTE | 2016-11-17 14:26 | PN ---
Date/Time of Note Date/Time of Note DATE: 11/16/16 TIME: 14:25 Assessment/Plan Lines/Catheters IV Catheter Type (from Nrs): PICC Line George in Place (from Nrs): Yes Assessment/Plan Chief Complaint/Hosp Course 1. Multiple decubitus ulcers with debris. Sacrococcygeal ulcer s/p exc boris . -Offload -Optimize nutrition -Vitamin C -Local care 2. UTI s/p abx 3. 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 Acute on chronic diastolic heart failure -Judicious fluid management -Cardiac optimization 5. Hypertension -Diet and medication control 6. Chronic urinary retention with George 7. Depression. -Medical management 8. Hypothyroidism by history. -Synthroid 9. Anemia of chronic disease in addition to iron deficiency anemia. -Continue iron supplements. -Transfusion when necessary 10. Chronic pain syndrome. Continue pain management. Thank you Late entry 11/16 Problems: Subjective 24 Hr Interval Summary Still in ICU. Leukocytosis. Tachyarrhythmia. No fevers, chills, nausea, vomiting, or abdominal pain. No abnormal vaginal discharge. No bloating. No cough, sz, bloating. No robles/dizzy/visual or neuro changes. Exam/Review of Systems Vital Signs Vitals Vital Signs Date Time Temp Pulse Resp B/P Pulse Ox O2 Delivery O2 Flow Rate FiO2 11/17/16 14:00 133 45 106/86 92 Nasal Cannula 4.0 11/17/16 12:00 97.7 11/15/16 23:55 50 Intake and Output 11/16/16 11/16/16 11/17/16 15:00 23:00 07:00 Intake Total 480 ml 2181.23 ml 1231.87 ml Output Total 1535 ml 1090 ml 1025 ml Balance -1055 ml 1091.23 ml 206.87 ml Exam Free Text/Dictation GENERAL: Elderly, cachectic, no acute distress. HEENT: Head is atraumatic, normocephalic. Pupils equal, round, reactive to light and accommodation. Oral mucosa is pink and moist. NECK: Supple, no cervical lymphadenopathy LUNGS: Normal respiratory effort CARDIAC: S1 and S2. Tachy, Irregular ABDOMEN: Flat, soft and nondistended. Nontender. No rebound or guarding. SKIN: Multiple decubitus wounds/ulcers buttock sacrum and right lower extremity EXTREMITIES: No edema. Pulses equal bilaterally, 2+. NEUROLOGICAL: Responsive VASCULAR: Refill is less than 2 seconds Results Result Diagram: 11/17/16 0320 11/17/16 0320 ZAK POSEY MD Nov 17, 2016 14:26
--- NOTE | 2016-11-17 14:27 | PN ---
Date/Time of Note Date/Time of Note DATE: 11/17/16 TIME: 14:26 Assessment/Plan Lines/Catheters IV Catheter Type (from Nrs): PICC Line George in Place (from Nrs): Yes Assessment/Plan Chief Complaint/Hosp Course 1. Multiple decubitus ulcers with debris. Sacrococcygeal ulcer s/p exc boris . -Offload -Optimize nutrition -Vitamin C -Local care 2. UTI s/p abx 3. 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 Acute on chronic diastolic heart failure -Judicious fluid management -Cardiac optimization 5. Hypertension -Diet and medication control 6. Chronic urinary retention with George 7. Depression. -Medical management 8. Hypothyroidism by history. -Synthroid 9. Anemia of chronic disease in addition to iron deficiency anemia. -Continue iron supplements. -Transfusion when necessary 10. Chronic pain syndrome. Continue pain management. Thank you Problems: Subjective 24 Hr Interval Summary Still in ICU. Leukocytosis. Tachyarrhythmia. No fevers, chills, nausea, vomiting, or abdominal pain. No abnormal vaginal discharge. No bloating. No cough, sz, bloating. No robles/dizzy/visual or neuro changes. Exam/Review of Systems Vital Signs Vitals Vital Signs Date Time Temp Pulse Resp B/P Pulse Ox O2 Delivery O2 Flow Rate FiO2 11/17/16 14:00 133 45 106/86 92 Nasal Cannula 4.0 11/17/16 12:00 97.7 11/15/16 23:55 50 Intake and Output 11/16/16 11/16/16 11/17/16 15:00 23:00 07:00 Intake Total 480 ml 2181.23 ml 1231.87 ml Output Total 1535 ml 1090 ml 1025 ml Balance -1055 ml 1091.23 ml 206.87 ml Exam Free Text/Dictation GENERAL: Elderly, cachectic, no acute distress. HEENT: Head is atraumatic, normocephalic. Pupils equal, round, reactive to light and accommodation. Oral mucosa is pink and moist. NECK: Supple, no cervical lymphadenopathy LUNGS: Normal respiratory effort CARDIAC: S1 and S2. Tachy, Irregular ABDOMEN: Flat, soft and nondistended. Nontender. No rebound or guarding. SKIN: Multiple decubitus wounds/ulcers buttock sacrum and right lower extremity EXTREMITIES: No edema. Pulses equal bilaterally, 2+. NEUROLOGICAL: Responsive VASCULAR: Refill is less than 2 seconds Results Result Diagram: 11/17/16 0320 11/17/16 0320 ZAK POSEY MD Nov 17, 2016 14:26
[2016-11-17] MEDS: ALBUTEROL/IPRATROPIUM (NEB) 3 ML AMP NEB PRN ×2 (16:23→23:39)
--- NOTE | 2016-11-17 16:36 | CONS ---
Date/Time of Note Date/Time of Note DATE: 11/17/16 TIME: 16:35 Assessment/Plan Assessment/Plan Additional Assessment/Plan 1. Hyponatremia, multifactorial - pt likey has Component of SAIDH causing hypoantreia, due to acute on chronic pain 2. Status post acute kidney injury on chronic kidney disease due to systemic inflammatory response syndrome. now improved 3. Sepsis, 4. History of recurrent polymicrobial urinary tract infections. 5. History of dementia. 6. History of previous cerebrovascular accident. 7. History of chronic obstructive pulmonary disease, recently had acute respiratory failure secondary to chronic obstructive pulmonary disease exacerbation. 8. History of urinary retention with a chronic George catheter in place. 9. Chronic debility with cachexia. 10. Multiple decubitus ulcers with debris. Sacrococcygeal ulcer s/p exc boris . 11. History of degenerative joint disease of spine. 12. History of hypertension and hypertensive heart disease with mild to moderate concentric left ventricular hypertrophy and echocardiogram with diastolic dysfunction stage I.EF normal PLAN: off BIPAP but still on low dose levophed, pulmonary has been follwing on patient Na 131 today , K stable, on daily K supplement monitor electrolytes Cr normal will follow up Consultation Date/Type/Reason Admit Date/Time Sep 26, 2016 at 20:07 Type of Consultation: NEPHROLOGY Referring Provider: DRE LOBATO MD 24 HR Interval Summary Free Text/Dictation pt off BIPAP now, BP still labile Exam/Review of Systems Vital Signs Vitals Vital Signs Date Time Temp Pulse Resp B/P Pulse Ox O2 Delivery O2 Flow Rate FiO2 11/17/16 16:27 124 32 100 40 11/17/16 16:15 97/72 BIPAP 11/17/16 16:00 99.5 11/17/16 15:15 Intake and Output 11/16/16 11/16/16 11/17/16 15:00 23:00 07:00 Intake Total 480 ml 2181.23 ml 1291.87 ml Output Total 1535 ml 1090 ml 1125 ml Balance -1055 ml 1091.23 ml 166.87 ml Exam GENERAL: Chronically ill-appearing, cachectic, elderly woman, who is awake, in no distress. HEENT: Head atraumatic, normocephalic. Sclerae anicteric. Buccal mucosa dry. NECK: Supple. Trachea midline. CHEST: Chest rise is symmetrical. Breath sounds diminished to the bases. HEART: S1, S2. ABDOMEN: Soft, bowel tones present. EXTREMITIES: Without cyanosis. Results Result Diagram: 11/17/16 0320 11/17/16 0320 Results 24 hrs Laboratory Tests Test 11/16/16 21:00 11/17/16 03:20 Vancomycin Level Trough 15.5 White Blood Count 17.7 H Red Blood Count 3.09 L Hemoglobin 8.0 L Hematocrit 27.3 L Mean Corpuscular Volume 88.3 Mean Corpuscular Hemoglobin 25.9 L Mean Corpuscular Hemoglobin Concent 29.3 L Red Cell Distribution Width 18.0 H Platelet Count 494 H Mean Platelet Volume 9.7 Neutrophils % 74.9 Lymphocytes % 11.4 L Monocytes % 10.7 Eosinophils % 1.9 Basophils % 0.5 Nucleated Red Blood Cells % 0.0 Neutrophils # 13.3 H Lymphocytes # 2.0 Monocytes # 1.9 H Eosinophils # 0.3 Basophils # 0.1 Nucleated Red Blood Cells # 0.0 Sodium Level 136 Potassium Level 3.9 Chloride Level 97 Carbon Dioxide Level 30 Anion Gap 13 Blood Urea Nitrogen 16 Creatinine 0.38 L Glucose Level 126 Calcium Level 8.5 Total Bilirubin 0.0 L Direct Bilirubin 0.00 Indirect Bilirubin 0.0 Aspartate Amino Transf (AST/SGOT) 38 Alanine Aminotransferase (ALT/SGPT) 48 Alkaline Phosphatase 256 H Total Protein 7.4 Albumin 2.7 L Globulin 4.70 H Albumin/Globulin Ratio 0.57 Medications Medications Current Medications Ondansetron HCl (Zofran Inj) 4 mg Q6 PRN IV NAUSEA AND/OR VOMITING; Start 09/26 at 22:30 Collagenase (Santyl) 1 applic DAILY TOP Last administered on 11/17/16 10:55; Admin Dose 1 APPLIC; Start 09/27/16 at 09:00 Collagenase (Santyl) 1 applic PRN PRN TOP SOILED OR DISLODGED DRESSING; Start 09/27/16 at 05:00 Lansoprazole (Prevacid) 30 mg DAILY@06 GTB Last administered on 11/17/16 05:34 ; Admin Dose 30 MG; Start 09/28/16 at 06:00 Cromolyn Sodium (Nasalcrom) 1 spray QID NASAL Last administered on 11/17/16 13: 41; Admin Dose 1 SPRAY; Start 09/29/16 at 11:02 Phenol (Cepastat Lozenge) 1 lozenge Q2H PRN MT SORE THROAT Last administered on 11/02/16 01:02; Admin Dose 1 LOZENGE; Start 10/01/16 at 19:00 IV Flush (NS 10 ml) 10 ml PRN PRN IV IV PROTOCOL Last administered on 11/17/16 03:20; Admin Dose 10 ML; Start 10/02/16 at 19:00 Hydromorphone HCl (Dilaudid) 0.5 mg Q4H PRN IV PAIN Last administered on 14:25; Admin Dose 0.5 MG; Start 10/06/16 at 18:30 Potassium Chloride 20 meq 20 meq DAILY GTB Last administered on 11/17/16 09:20 ; Admin Dose 20 MEQ; Start 10/30/16 at 12:00 Dextrose/Sodium Chloride 1,000 ml @ 75 mls/hr [id number] IV Last administered on 11/16/16 21:31; Admin Dose 75 MLS/HR; Start 11/12/16 at 04:30 Norepinephrine/ Dextrose (Levophed/D5W) 500 ml @ 1.87 mls/hr TITRATE IV Last administered on 11/17/16 04:27; Admin Dose 11.25 MLS/HR; Start 11/12/16 at 04:30 Metoprolol Tartrate 25 mg 25 mg Q6 PRN GTB For HR > 130 Last administered on 21:09; Admin Dose 25 MG; Start 11/12/16 at 22:30 Meropenem 100 ml @ 200 mls/hr Q8 IVPB Last administered on 11/17/16 13:38; Admin Dose 200 MLS/HR; Start 11/14/16 at 14:00 Vancomycin HCl/ Sodium Chloride (Vancocin/NS) 150 ml @ 75 mls/hr Q12H IVPB Last administered on 11/17/16 11:13; Admin Dose 75 MLS/HR; Start 11/15/16 at 10: 00 Acetaminophen (Tylenol Liquid) 650 mg Q6H PRN PEG PAIN AND OR ELEVATED TEMP; Start 11/16/16 at 20:04 Alprazolam (Xanax) 0.5 mg Q12H PRN PEG ANXIETY Last administered on 11/17/16 13 :37; Admin Dose 0.5 MG; Start 11/16/16 at 20:30 Ascorbic Acid (Vitamin C) 500 mg BID PEG Last administered on 11/17/16 09:20; Admin Dose 500 MG; Start 11/16/16 at 21:00 Atorvastatin Calcium (Lipitor) 20 mg QHS PEG Last administered on 11/16/16 20: 52; Admin Dose 20 MG; Start 11/16/16 at 21:00 Diazepam (Valium) 10 mg DAILY PEG Last administered on 11/17/16 09:25; Admin Dose 10 MG; Start 11/17/16 at 09:00 Duloxetine HCl (Cymbalta) 20 mg DAILY PEG Last administered on 11/17/16 09:25; Admin Dose 20 MG; Start 11/17/16 at 09:00 Fluconazole (Diflucan) 100 mg DAILY PEG Last administered on 11/17/16 09:26; Admin Dose 100 MG; Start 11/17/16 at 09:00 Lactobacillus Acidophilus (Florajen3 Capsule) 1 each TID PEG Last administered on 11/17/16 13:37; Admin Dose 1 EACH; Start 11/16/16 at 21:00 Metronidazole (Flagyl) 500 mg Q8 PEG Last administered on 11/17/16 13:37; Admin Dose 500 MG; Start 11/16/16 at 22:00 Promethazine HCl/ Codeine (Phenergan/ Codeine) 10 ml BID PRN PEG COUGH Last administered on 11/16/16 20:53; Admin Dose 10 ML; Start 11/16/16 at 20:00 Zolpidem Tartrate (Ambien) 5 mg QHS PRN PEG INSOMNIA; Start 11/16/16 at 20:00 Docusate Sodium (Colace Liquid Cup) 100 mg Q12 PRN GTB CONSTIPATION; Start 11/16 at 20:00 DIONNE SAUCEDA MD Nov 17, 2016 16:36
[2016-11-17] MEDS: DEXTROSE 5%-0.45% NACL 1,000 ML IV SCH (17:41)
--- NOTE | 2016-11-17 17:42 | PN ---
DATE: 11/17/2016 ADDENDUM: I met with the patient's daughter Sheila and explained to her that the patient has been declining. Patient remains on vasopressor due to septic shock, also was on BiPAP recently. Patient has a diag nosis of lung cancer and is not a candidate for treatment, as per Dr. Calvo, who is the patient' s oncologist. The patient recently developed acute respiratory failure and septic shock. Goals of care discussed with her, including code status, comfort care and hospice care. She requested that patient remain FULL CODE for now. She will discuss this issue with other family members and if ther e is any change in her decision, she will get back to me. I did explain to her that patient should be at least DO NOT RESUSCITATE; however, she requested that patient stay FULL CODE until the family decides to change the code status. Approximately 30 minutes were spent in the discussion. Dictated By: DRE MARCELINO/SANDER Conf#: [id number] DID#: [id number]
[2016-11-17] MEDS: ATORVASTATIN 20 MG TAB PEG SCH (21:12)
--- NOTE | 2016-11-17 22:56 | CONS ---
Date/Time of Note Date/Time of Note DATE: 11/17/16 TIME: 22:55 Assessment/Plan Assessment/Plan Chief Complaint/Hosp Course Left lung squamous carcinoma. The patient is not a candidate for chemotherapy. Anemia of chronic disease. monitor blood count closely transfuse as needed to keep HB above 8 Acute respiratory insufficiency requiring BiPAP. Acute shock, septic versus hypovolemic. tachycardia with episode of SVT. Chronic obstructive pulmonary disease. Dysphagia with G-tube. Continue current G-tube feeding. Hypothyroidism. Continue Synthroid. Problems: Consultation Date/Type/Reason Admit Date/Time Sep 26, 2016 at 20:07 Initial Consult Date 10/19/16 [facility] Referring Provider: DRE LOBATO MD 24 HR Interval Summary Free Text/Dictation off bypap d/w rn Exam/Review of Systems Vital Signs Vitals Vital Signs Date Time Temp Pulse Resp B/P Pulse Ox O2 Delivery O2 Flow Rate FiO2 11/17/16 21:45 119 29 101/58 99 11/17/16 21:30 40 11/17/16 21:00 BIPAP 11/17/16 20:00 98.6 11/17/16 15:15 Intake and Output 11/16/16 11/16/16 11/17/16 15:00 23:00 07:00 Intake Total 480 ml 2181.23 ml 1291.87 ml Output Total 1535 ml 1090 ml 1125 ml Balance -1055 ml 1091.23 ml 166.87 ml Exam GENERAL: Chronically ill-appearing, cachectic, elderly woman, who is awake, in no distress. HEENT: Head atraumatic, normocephalic. Sclerae anicteric. Buccal mucosa dry. NECK: Supple. Trachea midline. CHEST: Chest rise is symmetrical. Breath sounds diminished to the bases. HEART: S1, S2. ABDOMEN: Soft, bowel tones present. EXTREMITIES: Without cyanosis. Results Result Diagram: 11/17/16 0320 11/17/16 0320 Results 24 hrs Laboratory Tests Test 11/17/16 03:20 White Blood Count 17.7 H Red Blood Count 3.09 L Hemoglobin 8.0 L Hematocrit 27.3 L Mean Corpuscular Volume 88.3 Mean Corpuscular Hemoglobin 25.9 L Mean Corpuscular Hemoglobin Concent 29.3 L Red Cell Distribution Width 18.0 H Platelet Count 494 H Mean Platelet Volume 9.7 Neutrophils % 74.9 Lymphocytes % 11.4 L Monocytes % 10.7 Eosinophils % 1.9 Basophils % 0.5 Nucleated Red Blood Cells % 0.0 Neutrophils # 13.3 H Lymphocytes # 2.0 Monocytes # 1.9 H Eosinophils # 0.3 Basophils # 0.1 Nucleated Red Blood Cells # 0.0 Sodium Level 136 Potassium Level 3.9 Chloride Level 97 Carbon Dioxide Level 30 Anion Gap 13 Blood Urea Nitrogen 16 Creatinine 0.38 L Glucose Level 126 Calcium Level 8.5 Total Bilirubin 0.0 L Direct Bilirubin 0.00 Indirect Bilirubin 0.0 Aspartate Amino Transf (AST/SGOT) 38 Alanine Aminotransferase (ALT/SGPT) 48 Alkaline Phosphatase 256 H Total Protein 7.4 Albumin 2.7 L Globulin 4.70 H Albumin/Globulin Ratio 0.57 Medications Medications Current Medications Ondansetron HCl (Zofran Inj) 4 mg Q6 PRN IV NAUSEA AND/OR VOMITING; Start 09/26 at 22:30 Collagenase (Santyl) 1 applic DAILY TOP Last administered on 11/17/16 10:55; Admin Dose 1 APPLIC; Start 09/27/16 at 09:00 Collagenase (Santyl) 1 applic PRN PRN TOP SOILED OR DISLODGED DRESSING; Start 09/27/16 at 05:00 Lansoprazole (Prevacid) 30 mg DAILY@06 GTB Last administered on 11/17/16 05:34 ; Admin Dose 30 MG; Start 09/28/16 at 06:00 Cromolyn Sodium (Nasalcrom) 1 spray QID NASAL Last administered on 11/17/16 21: 14; Admin Dose 1 SPRAY; Start 09/29/16 at 11:02 Phenol (Cepastat Lozenge) 1 lozenge Q2H PRN MT SORE THROAT Last administered on 11/02/16 01:02; Admin Dose 1 LOZENGE; Start 10/01/16 at 19:00 IV Flush (NS 10 ml) 10 ml PRN PRN IV IV PROTOCOL Last administered on 11/17/16 03:20; Admin Dose 10 ML; Start 10/02/16 at 19:00 Hydromorphone HCl (Dilaudid) 0.5 mg Q4H PRN IV PAIN Last administered on 21:39; Admin Dose 0.5 MG; Start 10/06/16 at 18:30 Potassium Chloride 20 meq 20 meq DAILY GTB Last administered on 11/17/16 09:20 ; Admin Dose 20 MEQ; Start 10/30/16 at 12:00 Dextrose/Sodium Chloride 1,000 ml @ 75 mls/hr [id number] IV Last administered on 11/17/16 17:41; Admin Dose 75 MLS/HR; Start 11/12/16 at 04:30 Norepinephrine/ Dextrose (Levophed/D5W) 500 ml @ 1.87 mls/hr TITRATE IV Last administered on 11/17/16 04:27; Admin Dose 11.25 MLS/HR; Start 11/12/16 at 04:30 Metoprolol Tartrate 25 mg 25 mg Q6 PRN GTB For HR > 130 Last administered on 21:09; Admin Dose 25 MG; Start 11/12/16 at 22:30 Meropenem 100 ml @ 200 mls/hr Q8 IVPB Last administered on 11/17/16 21:13; Admin Dose 200 MLS/HR; Start 11/14/16 at 14:00 Vancomycin HCl/ Sodium Chloride (Vancocin/NS) 150 ml @ 75 mls/hr Q12H IVPB Last administered on 11/17/16 21:40; Admin Dose 75 MLS/HR; Start 11/15/16 at 10: 00 Acetaminophen (Tylenol Liquid) 650 mg Q6H PRN PEG PAIN AND OR ELEVATED TEMP; Start 11/16/16 at 20:04 Alprazolam (Xanax) 0.5 mg Q12H PRN PEG ANXIETY Last administered on 11/17/16 13 :37; Admin Dose 0.5 MG; Start 11/16/16 at 20:30 Ascorbic Acid (Vitamin C) 500 mg BID PEG Last administered on 11/17/16 21:12; Admin Dose 500 MG; Start 11/16/16 at 21:00 Atorvastatin Calcium (Lipitor) 20 mg QHS PEG Last administered on 11/17/16 21: 12; Admin Dose 20 MG; Start 11/16/16 at 21:00 Diazepam (Valium) 10 mg DAILY PEG Last administered on 11/17/16 09:25; Admin Dose 10 MG; Start 11/17/16 at 09:00 Duloxetine HCl (Cymbalta) 20 mg DAILY PEG Last administered on 11/17/16 09:25; Admin Dose 20 MG; Start 11/17/16 at 09:00 Fluconazole (Diflucan) 100 mg DAILY PEG Last administered on 11/17/16 09:26; Admin Dose 100 MG; Start 11/17/16 at 09:00 Lactobacillus Acidophilus (Florajen3 Capsule) 1 each TID PEG Last administered on 11/17/16 21:12; Admin Dose 1 EACH; Start 11/16/16 at 21:00 Metronidazole (Flagyl) 500 mg Q8 PEG Last administered on 11/17/16 21:12; Admin Dose 500 MG; Start 11/16/16 at 22:00 Promethazine HCl/ Codeine (Phenergan/ Codeine) 10 ml BID PRN PEG COUGH Last administered on 11/16/16 20:53; Admin Dose 10 ML; Start 11/16/16 at 20:00 Zolpidem Tartrate (Ambien) 5 mg QHS PRN PEG INSOMNIA; Start 11/16/16 at 20:00 Docusate Sodium (Colace Liquid Cup) 100 mg Q12 PRN GTB CONSTIPATION; Start 11/16 at 20:00 DYLLAN CARRION MD Nov 17, 2016 22:56
[2016-11-18] VITALS (87 sets, daily range): BP systolic 81–120; BP diastolic 48–87; PULSE 105–139; RESP 25–48
[2016-11-18] MEDS: HYDROmorphONE 1 MG/ML SYG IV PRN ×4 (01:53→16:18)
[2016-11-18 04:35] LABS: ADD SCAN DIFF NO
[2016-11-18 04:40] LABS: ABNORMAL IP MESSAGE 1; BASOPHIL # 0.1 10^3/ul (0.0-0.1); BASOPHILS % 0.5 % (0.0-2.0); EOSINOPHILS # 0.2 10^3/ul (0.0-0.5); EOSINOPHILS % 1.2 % (0.0-7.0); HEMATOCRIT 25.4 % (37.0-47.0); HEMOGLOBIN 7.7 g/dl (12.0-16.0); LYMPHOCYTES # 1.7 10^3/ul (0.8-2.9); LYMPHOCYTES % 9.2 % (15.0-51.0); MEAN CORPUSCULAR HEMOGLOBIN 26.6 pg (29.0-33.0); MEAN CORPUSCULAR HGB CONC 30.3 g/dl (32.0-37.0); MEAN CORPUSCULAR VOLUME 87.9 fl (82.0-101.0); MONOCYTE # 1.8 10^3/ul (0.3-0.9); MONOCYTES % 9.4 % (0.0-11.0); NEUTROPHIL # 14.7 10^3/ul (1.6-7.5); NEUTROPHILS % 78.7 % (39.0-77.0); PLATELET COUNT 491 10^3/UL (140-415); RED BLOOD COUNT 2.89 10^6/ul (4.20-5.40); WHITE BLOOD COUNT 18.7 10^3/ul (4.8-10.8)
[2016-11-18 05:15] LABS: CALCIUM 8.3 mg/dl (8.4-10.2); CREATININE 0.41 mg/dl (0.44-1.00); POTASSIUM 3.8 mmol/L (3.5-5.1)
[2016-11-18] MEDS: MEROPENEM 500 MG/100 ML (PMX) 100 ML IVPB SCH ×3 (05:45→22:02)
[2016-11-18] MEDS: metroNIDAZOLE 500 MG TAB PEG SCH ×3 (05:45→22:02)
[2016-11-18] MEDS: LANSOPRAZOLE 30 MG CAP GTB SCH (05:45)
[2016-11-18] MEDS: DEXTROSE 5%-0.45% NACL 1,000 ML IV SCH ×2 (07:10→12:30)
[2016-11-18] MEDS: ALPRAZOLAM 0.25 MG TAB PEG PRN (07:48)
[2016-11-18] MEDS: LEVOTHYROXINE 125 MCG TAB PEG SCH (07:49)
[2016-11-18] MEDS: COLLAGENASE 30 GM TUBE TOP SCH (09:00)
[2016-11-18] MEDS: POTASSIUM CHLORIDE 20 MEQ POWDER FOR ORAL SOLN GTB SCH (09:06)
[2016-11-18] MEDS: L ACIDOPHIL/B LACTIS/B LONGUM CAPSULE PEG SCH ×3 (09:06→20:57)
[2016-11-18] MEDS: DIAZEPAM 5 MG TAB PEG SCH (09:06)
[2016-11-18] MEDS: FLUCONAZOLE 100 MG TAB PEG SCH (09:06)
[2016-11-18] MEDS: DULOXETINE 20 MG CAP DR PEG SCH (09:06)
[2016-11-18] MEDS: ASCORBIC ACID 500 MG TAB PEG SCH ×2 (09:06→20:57)
[2016-11-18] MEDS: CROMOLYN 4% 26ML NAS INH NASAL SCH ×4 (09:07→20:58)
[2016-11-18] MEDS: VANCOMYCIN 750 MG in SOD CHLORIDE 0.9% 150 ML IVPB SCH ×2 (09:16→22:02)
--- NOTE | 2016-11-18 10:04 | CONS ---
Date/Time of Note Date/Time of Note DATE: 11/18/16 TIME: 10:02 Assessment/Plan Assessment/Plan Additional Assessment/Plan Assessment recommendations; next 1. Patient admitted for severe sepsis from sacral decubitus ulcers. 2. Sepsis. Patient still requiring Levophed although at a lower dose. 3. History of lung cancer. Involving left lower lobe. 4. History of diabetes and hypertension. 5. COPD. Continue current supportive care. Consultation Date/Type/Reason Admit Date/Time Sep 26, 2016 at 20:07 Initial Consult Date 11/14/16 Type of Consultation: Pulmonary/critical care Referring Provider: DRE LOBATO MD 24 HR Interval Summary Free Text/Dictation Patient condition remains stable. Remains completely awake alert. However not requiring Ventimask for O2 saturation maintenance. General exam; elderly lady, awake alert currently in no distress. Exam/Review of Systems Vital Signs Vitals Vital Signs Date Time Temp Pulse Resp B/P Pulse Ox O2 Delivery O2 Flow Rate FiO2 11/18/16 09:15 115 34 108/69 97 Venturi Mask 11/18/16 08:00 99.2 11/18/16 05:00 12.0 45 Intake and Output 11/17/16 11/17/16 11/18/16 15:00 23:00 07:00 Intake Total 1514.09 ml 808.08 ml 1493.34 ml Output Total 1075 ml 900 ml 800 ml Balance 439.09 ml -91.92 ml 693.34 ml Exam HEENT exam is; supple neck, no JVD. No lymphadenopathy. Midline trachea. No thyromegaly. Patient multiple carious teeth. Neck Chest examination; diminished but clear breath sound. S1-S2 audible, no murmurs. Regular rhythm. Abdomen examination; soft, nondistended. No organomegaly. Bowel sounds audible. G-tube in place. Extremity exam is; no peripheral edema. Back examination reveals dressing applied over sacrum with a wound VAC in place. [employer] examination; no focal deficit. Results Result Diagram: 11/18/16 0430 11/18/16 0430 Results 24 hrs Laboratory Tests Test 11/18/16 04:30 White Blood Count 18.7 H Red Blood Count 2.89 L Hemoglobin 7.7 L Hematocrit 25.4 L Mean Corpuscular Volume 87.9 Mean Corpuscular Hemoglobin 26.6 L Mean Corpuscular Hemoglobin Concent 30.3 L Red Cell Distribution Width 18.0 H Platelet Count 491 H Mean Platelet Volume 9.0 Neutrophils % 78.7 H Lymphocytes % 9.2 L Monocytes % 9.4 Eosinophils % 1.2 Basophils % 0.5 Nucleated Red Blood Cells % 0.0 Neutrophils # 14.7 H Lymphocytes # 1.7 Monocytes # 1.8 H Eosinophils # 0.2 Basophils # 0.1 Nucleated Red Blood Cells # 0.0 Sodium Level 133 L Potassium Level 3.8 Chloride Level 97 Carbon Dioxide Level 32 H Anion Gap 8 Blood Urea Nitrogen 14 Creatinine 0.41 L Glucose Level 147 Calcium Level 8.3 L Medications Medications Current Medications Ondansetron HCl (Zofran Inj) 4 mg Q6 PRN IV NAUSEA AND/OR VOMITING; Start 09/26 at 22:30 Collagenase (Santyl) 1 applic DAILY TOP Last administered on 11/17/16 10:55; Admin Dose 1 APPLIC; Start 09/27/16 at 09:00 Collagenase (Santyl) 1 applic PRN PRN TOP SOILED OR DISLODGED DRESSING; Start 09/27/16 at 05:00 Lansoprazole (Prevacid) 30 mg DAILY@06 GTB Last administered on 11/18/16 05:45 ; Admin Dose 30 MG; Start 09/28/16 at 06:00 Cromolyn Sodium (Nasalcrom) 1 spray QID NASAL Last administered on 11/18/16 09: 07; Admin Dose 1 SPRAY; Start 09/29/16 at 11:02 Phenol (Cepastat Lozenge) 1 lozenge Q2H PRN MT SORE THROAT Last administered on 11/02/16 01:02; Admin Dose 1 LOZENGE; Start 10/01/16 at 19:00 IV Flush (NS 10 ml) 10 ml PRN PRN IV IV PROTOCOL Last administered on 11/17/16 03:20; Admin Dose 10 ML; Start 10/02/16 at 19:00 Hydromorphone HCl (Dilaudid) 0.5 mg Q4H PRN IV PAIN Last administered on 05:53; Admin Dose 0.5 MG; Start 10/06/16 at 18:30 Potassium Chloride 20 meq 20 meq DAILY GTB Last administered on 11/18/16 09:06 ; Admin Dose 20 MEQ; Start 10/30/16 at 12:00 Dextrose/Sodium Chloride 1,000 ml @ 75 mls/hr [id number] IV Last administered on 11/17/16 17:41; Admin Dose 75 MLS/HR; Start 11/12/16 at 04:30 Norepinephrine/ Dextrose (Levophed/D5W) 500 ml @ 1.87 mls/hr TITRATE IV Last administered on 11/18/16 09:45; Admin Dose 15 MLS/HR; Start 11/12/16 at 04:30 Metoprolol Tartrate 25 mg 25 mg Q6 PRN GTB For HR > 130 Last administered on 21:09; Admin Dose 25 MG; Start 11/12/16 at 22:30 Meropenem 100 ml @ 200 mls/hr Q8 IVPB Last administered on 11/18/16 05:45; Admin Dose 200 MLS/HR; Start 11/14/16 at 14:00 Vancomycin HCl/ Sodium Chloride (Vancocin/NS) 150 ml @ 75 mls/hr Q12H IVPB Last administered on 11/18/16 09:16; Admin Dose 75 MLS/HR; Start 11/15/16 at 10: 00 Acetaminophen (Tylenol Liquid) 650 mg Q6H PRN PEG PAIN AND OR ELEVATED TEMP; Start 11/16/16 at 20:04 Alprazolam (Xanax) 0.5 mg Q12H PRN PEG ANXIETY Last administered on 11/18/16 07 :48; Admin Dose 0.5 MG; Start 11/16/16 at 20:30 Ascorbic Acid (Vitamin C) 500 mg BID PEG Last administered on 11/18/16 09:06; Admin Dose 500 MG; Start 11/16/16 at 21:00 Atorvastatin Calcium (Lipitor) 20 mg QHS PEG Last administered on 11/17/16 21: 12; Admin Dose 20 MG; Start 11/16/16 at 21:00 Diazepam (Valium) 10 mg DAILY PEG Last administered on 11/18/16 09:06; Admin Dose 10 MG; Start 11/17/16 at 09:00 Duloxetine HCl (Cymbalta) 20 mg DAILY PEG Last administered on 11/18/16 09:06; Admin Dose 20 MG; Start 11/17/16 at 09:00 Fluconazole (Diflucan) 100 mg DAILY PEG Last administered on 11/18/16 09:06; Admin Dose 100 MG; Start 11/17/16 at 09:00 Lactobacillus Acidophilus (Florajen3 Capsule) 1 each TID PEG Last administered on 11/18/16 09:06; Admin Dose 1 EACH; Start 11/16/16 at 21:00 Metronidazole (Flagyl) 500 mg Q8 PEG Last administered on 11/18/16 05:45; Admin Dose 500 MG; Start 11/16/16 at 22:00 Promethazine HCl/ Codeine (Phenergan/ Codeine) 10 ml BID PRN PEG COUGH Last administered on 11/16/16 20:53; Admin Dose 10 ML; Start 11/16/16 at 20:00 Zolpidem Tartrate (Ambien) 5 mg QHS PRN PEG INSOMNIA; Start 11/16/16 at 20:00 Docusate Sodium (Colace Liquid Cup) 100 mg Q12 PRN GTB CONSTIPATION; Start 11/16 at 20:00 REGINE BUCKLEY Nov 18, 2016 10:04
--- NOTE | 2016-11-18 10:21 | CONS ---
Date/Time of Note Date/Time of Note DATE: 11/18/16 TIME: 10:21 Assessment/Plan Assessment/Plan Chief Complaint/Hosp Course Left lung squamous carcinoma. The patient is not a candidate for chemotherapy. Anemia of chronic disease. monitor blood count closely transfuse as needed to keep HB above 8 Acute respiratory insufficiency requiring BiPAP. Acute shock, septic versus hypovolemic. tachycardia with episode of SVT. Chronic obstructive pulmonary disease. Dysphagia with G-tube. Continue current G-tube feeding. Hypothyroidism. Continue Synthroid. Problems: Consultation Date/Type/Reason Admit Date/Time Sep 26, 2016 at 20:07 Initial Consult Date 10/19/16 [facility] Referring Provider: DRE LOBATO MD 24 HR Interval Summary Free Text/Dictation nad, off BIPAP, on low dose levophed, seems comfortable, follows simple commands , dw staff Constitutional: requiring IVF, requiring O2 Respiratory: no complaints Cardiovascular: no complaints Gastrointestinal: no complaints Musculoskeletal: back pain Exam/Review of Systems Vital Signs Vitals Vital Signs Date Time Temp Pulse Resp B/P Pulse Ox O2 Delivery O2 Flow Rate FiO2 11/18/16 09:15 115 34 108/69 97 Venturi Mask 11/18/16 08:00 99.2 11/18/16 05:00 12.0 45 Intake and Output 11/17/16 11/17/16 11/18/16 15:00 23:00 07:00 Intake Total 1514.09 ml 808.08 ml 1493.34 ml Output Total 1075 ml 900 ml 800 ml Balance 439.09 ml -91.92 ml 693.34 ml Exam Exam Constitutional: alert Psych: nl mood/affect Neck: non-tender, supple Respiratory: clear to auscultation, normal air movement Cardiovascular: nl pulses Gastrointestinal: non-tender, soft Musculoskeletal: muscle weakness Extremities: normal pulses Neurological: confused, nl speech Skin: other Lymph: nontender Results Result Diagram: 11/18/16 0430 11/18/16 0430 Results 24 hrs Laboratory Tests Test 11/18/16 04:30 White Blood Count 18.7 H Red Blood Count 2.89 L Hemoglobin 7.7 L Hematocrit 25.4 L Mean Corpuscular Volume 87.9 Mean Corpuscular Hemoglobin 26.6 L Mean Corpuscular Hemoglobin Concent 30.3 L Red Cell Distribution Width 18.0 H Platelet Count 491 H Mean Platelet Volume 9.0 Neutrophils % 78.7 H Lymphocytes % 9.2 L Monocytes % 9.4 Eosinophils % 1.2 Basophils % 0.5 Nucleated Red Blood Cells % 0.0 Neutrophils # 14.7 H Lymphocytes # 1.7 Monocytes # 1.8 H Eosinophils # 0.2 Basophils # 0.1 Nucleated Red Blood Cells # 0.0 Sodium Level 133 L Potassium Level 3.8 Chloride Level 97 Carbon Dioxide Level 32 H Anion Gap 8 Blood Urea Nitrogen 14 Creatinine 0.41 L Glucose Level 147 Calcium Level 8.3 L Medications Medications Current Medications Ondansetron HCl (Zofran Inj) 4 mg Q6 PRN IV NAUSEA AND/OR VOMITING; Start 09/26 at 22:30 Collagenase (Santyl) 1 applic DAILY TOP Last administered on 11/17/16 10:55; Admin Dose 1 APPLIC; Start 09/27/16 at 09:00 Collagenase (Santyl) 1 applic PRN PRN TOP SOILED OR DISLODGED DRESSING; Start 09/27/16 at 05:00 Lansoprazole (Prevacid) 30 mg DAILY@06 GTB Last administered on 11/18/16 05:45 ; Admin Dose 30 MG; Start 09/28/16 at 06:00 Cromolyn Sodium (Nasalcrom) 1 spray QID NASAL Last administered on 11/18/16 09: 07; Admin Dose 1 SPRAY; Start 09/29/16 at 11:02 Phenol (Cepastat Lozenge) 1 lozenge Q2H PRN MT SORE THROAT Last administered on 11/02/16 01:02; Admin Dose 1 LOZENGE; Start 10/01/16 at 19:00 IV Flush (NS 10 ml) 10 ml PRN PRN IV IV PROTOCOL Last administered on 11/17/16 03:20; Admin Dose 10 ML; Start 10/02/16 at 19:00 Hydromorphone HCl (Dilaudid) 0.5 mg Q4H PRN IV PAIN Last administered on 05:53; Admin Dose 0.5 MG; Start 10/06/16 at 18:30 Potassium Chloride 20 meq 20 meq DAILY GTB Last administered on 11/18/16 09:06 ; Admin Dose 20 MEQ; Start 10/30/16 at 12:00 Dextrose/Sodium Chloride 1,000 ml @ 75 mls/hr [id number] IV Last administered on 11/17/16 17:41; Admin Dose 75 MLS/HR; Start 11/12/16 at 04:30 Norepinephrine/ Dextrose (Levophed/D5W) 500 ml @ 1.87 mls/hr TITRATE IV Last administered on 11/18/16 09:45; Admin Dose 15 MLS/HR; Start 11/12/16 at 04:30 Metoprolol Tartrate 25 mg 25 mg Q6 PRN GTB For HR > 130 Last administered on 21:09; Admin Dose 25 MG; Start 11/12/16 at 22:30 Meropenem 100 ml @ 200 mls/hr Q8 IVPB Last administered on 11/18/16 05:45; Admin Dose 200 MLS/HR; Start 11/14/16 at 14:00 Vancomycin HCl/ Sodium Chloride (Vancocin/NS) 150 ml @ 75 mls/hr Q12H IVPB Last administered on 11/18/16 09:16; Admin Dose 75 MLS/HR; Start 11/15/16 at 10: 00 Acetaminophen (Tylenol Liquid) 650 mg Q6H PRN PEG PAIN AND OR ELEVATED TEMP; Start 11/16/16 at 20:04 Alprazolam (Xanax) 0.5 mg Q12H PRN PEG ANXIETY Last administered on 11/18/16 07 :48; Admin Dose 0.5 MG; Start 11/16/16 at 20:30 Ascorbic Acid (Vitamin C) 500 mg BID PEG Last administered on 11/18/16 09:06; Admin Dose 500 MG; Start 11/16/16 at 21:00 Atorvastatin Calcium (Lipitor) 20 mg QHS PEG Last administered on 11/17/16 21: 12; Admin Dose 20 MG; Start 11/16/16 at 21:00 Diazepam (Valium) 10 mg DAILY PEG Last administered on 11/18/16 09:06; Admin Dose 10 MG; Start 11/17/16 at 09:00 Duloxetine HCl (Cymbalta) 20 mg DAILY PEG Last administered on 11/18/16 09:06; Admin Dose 20 MG; Start 11/17/16 at 09:00 Fluconazole (Diflucan) 100 mg DAILY PEG Last administered on 11/18/16 09:06; Admin Dose 100 MG; Start 11/17/16 at 09:00 Lactobacillus Acidophilus (Florajen3 Capsule) 1 each TID PEG Last administered on 11/18/16 09:06; Admin Dose 1 EACH; Start 11/16/16 at 21:00 Metronidazole (Flagyl) 500 mg Q8 PEG Last administered on 11/18/16 05:45; Admin Dose 500 MG; Start 11/16/16 at 22:00 Promethazine HCl/ Codeine (Phenergan/ Codeine) 10 ml BID PRN PEG COUGH Last administered on 11/16/16 20:53; Admin Dose 10 ML; Start 11/16/16 at 20:00 Zolpidem Tartrate (Ambien) 5 mg QHS PRN PEG INSOMNIA; Start 11/16/16 at 20:00 Docusate Sodium (Colace Liquid Cup) 100 mg Q12 PRN GTB CONSTIPATION; Start 11/16 at 20:00 DYLLAN CARRION MD Nov 18, 2016 10:21
--- NOTE | 2016-11-18 11:40 | PN ---
Date/Time of Note Date/Time of Note DATE: 11/18/16 TIME: 11:31 Assessment/Plan VTE Prophylaxis VTE Prophylaxis Intervention: other Lines/Catheters IV Catheter Type (from Nrs): PICC Line Central line still needed: Yes Urinary Cath still in place: Yes Reason Cath still needed: urinary retention Assessment/Plan Assessment/Plan 1. Sepsis with shock. Dr. Coleman is following the patient in infectious disease consultation. Continue antibiotics per ID. 2. Acute respiratory failure. Dr. Neri is following in pulmonology consultation. Continue breathing treatments and bronchodilators. 3. Left lung squamous carcinoma. 4. Chronic obstructive pulmonary disease. 5. Dysphagia, with G-tube placement. 6. Hypothyroidism. Continue Synthroid. 7. Anemia of chronic disease. 8. Multiple wounds. Continue the current wound care, including wound VAC. 9. Acute on chronic pain. Continue the current pain medication. Continue sequential compression devices for deep venous thrombosis prophylaxis and Prevacid for peptic ulcer disease prophylaxis. Further recommendations based on clinical course. Plan of care discussed with Dr. Dozier. Subjective 24 Hr Interval Summary Free Text/Dictation nad, off BIPAP, on low dose levophed, seems comfortable, follows simple commands , dw staff Constitutional: requiring IVF, requiring O2 Respiratory: no complaints Cardiovascular: no complaints Gastrointestinal: no complaints Musculoskeletal: back pain Exam/Review of Systems Vital Signs Vitals Vital Signs Date Time Temp Pulse Resp B/P Pulse Ox O2 Delivery O2 Flow Rate FiO2 11/18/16 09:15 115 34 108/69 97 Venturi Mask 11/18/16 08:00 99.2 11/18/16 05:00 12.0 45 Intake and Output 11/17/16 11/17/16 11/18/16 15:00 23:00 07:00 Intake Total 1514.09 ml 808.08 ml 1493.34 ml Output Total 1075 ml 900 ml 800 ml Balance 439.09 ml -91.92 ml 693.34 ml Exam Constitutional: alert Psych: nl mood/affect Neck: non-tender, supple Respiratory: clear to auscultation, normal air movement Cardiovascular: nl pulses Gastrointestinal: non-tender, soft Musculoskeletal: muscle weakness Extremities: normal pulses Neurological: confused, nl speech Skin: other Lymph: nontender Results Result Diagram: 11/18/160 11/18/16 0430 Results 24 hrs Laboratory Tests Test 11/18/16 04:30 White Blood Count 18.7 H Red Blood Count 2.89 L Hemoglobin 7.7 L Hematocrit 25.4 L Mean Corpuscular Volume 87.9 Mean Corpuscular Hemoglobin 26.6 L Mean Corpuscular Hemoglobin Concent 30.3 L Red Cell Distribution Width 18.0 H Platelet Count 491 H Mean Platelet Volume 9.0 Neutrophils % 78.7 H Lymphocytes % 9.2 L Monocytes % 9.4 Eosinophils % 1.2 Basophils % 0.5 Nucleated Red Blood Cells % 0.0 Neutrophils # 14.7 H Lymphocytes # 1.7 Monocytes # 1.8 H Eosinophils # 0.2 Basophils # 0.1 Nucleated Red Blood Cells # 0.0 Sodium Level 133 L Potassium Level 3.8 Chloride Level 97 Carbon Dioxide Level 32 H Anion Gap 8 Blood Urea Nitrogen 14 Creatinine 0.41 L Glucose Level 147 Calcium Level 8.3 L Medications Medications Current Medications Ondansetron HCl (Zofran Inj) 4 mg Q6 PRN IV NAUSEA AND/OR VOMITING; Start 09/26 at 22:30 Collagenase (Santyl) 1 applic DAILY TOP Last administered on 11/17/16 10:55; Admin Dose 1 APPLIC; Start 09/27/16 at 09:00 Collagenase (Santyl) 1 applic PRN PRN TOP SOILED OR DISLODGED DRESSING; Start 09/27/16 at 05:00 Lansoprazole (Prevacid) 30 mg DAILY@06 GTB Last administered on 11/18/16 05:45 ; Admin Dose 30 MG; Start 09/28/16 at 06:00 Cromolyn Sodium (Nasalcrom) 1 spray QID NASAL Last administered on 11/18/16 09: 07; Admin Dose 1 SPRAY; Start 09/29/16 at 11:02 Phenol (Cepastat Lozenge) 1 lozenge Q2H PRN MT SORE THROAT Last administered on 11/02/16 01:02; Admin Dose 1 LOZENGE; Start 10/01/16 at 19:00 IV Flush (NS 10 ml) 10 ml PRN PRN IV IV PROTOCOL Last administered on 11/17/16 03:20; Admin Dose 10 ML; Start 10/02/16 at 19:00 Hydromorphone HCl (Dilaudid) 0.5 mg Q4H PRN IV PAIN Last administered on 11:21; Admin Dose 0.5 MG; Start 10/06/16 at 18:30 Potassium Chloride 20 meq 20 meq DAILY GTB Last administered on 11/18/16 09:06 ; Admin Dose 20 MEQ; Start 10/30/16 at 12:00 Dextrose/Sodium Chloride 1,000 ml @ 75 mls/hr [id number] IV Last administered on 11/17/16 17:41; Admin Dose 75 MLS/HR; Start 11/12/16 at 04:30 Norepinephrine/ Dextrose (Levophed/D5W) 500 ml @ 1.87 mls/hr TITRATE IV Last administered on 11/18/16 09:45; Admin Dose 15 MLS/HR; Start 11/12/16 at 04:30 Metoprolol Tartrate 25 mg 25 mg Q6 PRN GTB For HR > 130 Last administered on 21:09; Admin Dose 25 MG; Start 11/12/16 at 22:30 Meropenem 100 ml @ 200 mls/hr Q8 IVPB Last administered on 11/18/16 05:45; Admin Dose 200 MLS/HR; Start 11/14/16 at 14:00 Vancomycin HCl/ Sodium Chloride (Vancocin/NS) 150 ml @ 75 mls/hr Q12H IVPB Last administered on 11/18/16 09:16; Admin Dose 75 MLS/HR; Start 11/15/16 at 10: 00 Acetaminophen (Tylenol Liquid) 650 mg Q6H PRN PEG PAIN AND OR ELEVATED TEMP; Start 11/16/16 at 20:04 Alprazolam (Xanax) 0.5 mg Q12H PRN PEG ANXIETY Last administered on 11/18/16 07 :48; Admin Dose 0.5 MG; Start 11/16/16 at 20:30 Ascorbic Acid (Vitamin C) 500 mg BID PEG Last administered on 11/18/16 09:06; Admin Dose 500 MG; Start 11/16/16 at 21:00 Atorvastatin Calcium (Lipitor) 20 mg QHS PEG Last administered on 11/17/16 21: 12; Admin Dose 20 MG; Start 11/16/16 at 21:00 Diazepam (Valium) 10 mg DAILY PEG Last administered on 11/18/16 09:06; Admin Dose 10 MG; Start 11/17/16 at 09:00 Duloxetine HCl (Cymbalta) 20 mg DAILY PEG Last administered on 11/18/16 09:06; Admin Dose 20 MG; Start 11/17/16 at 09:00 Fluconazole (Diflucan) 100 mg DAILY PEG Last administered on 11/18/16 09:06; Admin Dose 100 MG; Start 11/17/16 at 09:00 Lactobacillus Acidophilus (Florajen3 Capsule) 1 each TID PEG Last administered on 11/18/16 09:06; Admin Dose 1 EACH; Start 11/16/16 at 21:00 Metronidazole (Flagyl) 500 mg Q8 PEG Last administered on 11/18/16 05:45; Admin Dose 500 MG; Start 11/16/16 at 22:00 Promethazine HCl/ Codeine (Phenergan/ Codeine) 10 ml BID PRN PEG COUGH Last administered on 11/16/16 20:53; Admin Dose 10 ML; Start 11/16/16 at 20:00 Zolpidem Tartrate (Ambien) 5 mg QHS PRN PEG INSOMNIA; Start 11/16/16 at 20:00 Docusate Sodium (Colace Liquid Cup) 100 mg Q12 PRN GTB CONSTIPATION; Start 11/16 at 20:00 VIKASH CASTANEDA Nov 18, 2016 11:40
--- NOTE | 2016-11-18 11:44 | CONS ---
Date/Time of Note Date/Time of Note DATE: 11/18/16 TIME: 11:43 Assessment/Plan Assessment/Plan Chief Complaint/Hosp Course Sepsis Respiratory failure Intermittent hypotension Diastolic congestive heart failure Pulmonary hypertension Preserved ejection fraction Tricuspid valve regurgitation Lung cancer Problems: Additional Assessment/Plan no change in cardiac meds Consultation Date/Type/Reason Admit Date/Time Sep 26, 2016 at 20:07 Initial Consult Date 11/14/16 Type of Consultation: cv Referring Provider: DRE LOBATO MD 24 HR Interval Summary Free Text/Dictation frail, no distress, no chest pain or sob, weak, fatigued Subjective hx not possible: pt non-verbal Exam/Review of Systems Vital Signs Vitals Vital Signs Date Time Temp Pulse Resp B/P Pulse Ox O2 Delivery O2 Flow Rate FiO2 11/18/16 09:15 115 34 108/69 97 Venturi Mask 11/18/16 08:00 99.2 11/18/16 05:00 12.0 45 Intake and Output 11/17/16 11/17/16 11/18/16 15:00 23:00 07:00 Intake Total 1514.09 ml 808.08 ml 1493.34 ml Output Total 1075 ml 900 ml 800 ml Balance 439.09 ml -91.92 ml 693.34 ml Exam Constitutional: frail Head: atraumatic, normocephalic Neck: supple Respiratory: clear to auscultation Cardiovascular: regular rate and rhythm Gastrointestinal: soft Musculoskeletal: nl extremities to inspection Extremities: normal pulses Results Result Diagram: 11/18/16 0430 11/18/16 0430 Results 24 hrs Laboratory Tests Test 11/18/16 04:30 White Blood Count 18.7 H Red Blood Count 2.89 L Hemoglobin 7.7 L Hematocrit 25.4 L Mean Corpuscular Volume 87.9 Mean Corpuscular Hemoglobin 26.6 L Mean Corpuscular Hemoglobin Concent 30.3 L Red Cell Distribution Width 18.0 H Platelet Count 491 H Mean Platelet Volume 9.0 Neutrophils % 78.7 H Lymphocytes % 9.2 L Monocytes % 9.4 Eosinophils % 1.2 Basophils % 0.5 Nucleated Red Blood Cells % 0.0 Neutrophils # 14.7 H Lymphocytes # 1.7 Monocytes # 1.8 H Eosinophils # 0.2 Basophils # 0.1 Nucleated Red Blood Cells # 0.0 Sodium Level 133 L Potassium Level 3.8 Chloride Level 97 Carbon Dioxide Level 32 H Anion Gap 8 Blood Urea Nitrogen 14 Creatinine 0.41 L Glucose Level 147 Calcium Level 8.3 L Medications Medications Current Medications Ondansetron HCl (Zofran Inj) 4 mg Q6 PRN IV NAUSEA AND/OR VOMITING; Start 09/26 at 22:30 Collagenase (Santyl) 1 applic DAILY TOP Last administered on 11/17/16 10:55; Admin Dose 1 APPLIC; Start 09/27/16 at 09:00 Collagenase (Santyl) 1 applic PRN PRN TOP SOILED OR DISLODGED DRESSING; Start 09/27/16 at 05:00 Lansoprazole (Prevacid) 30 mg DAILY@06 GTB Last administered on 11/18/16 05:45 ; Admin Dose 30 MG; Start 09/28/16 at 06:00 Cromolyn Sodium (Nasalcrom) 1 spray QID NASAL Last administered on 11/18/16 09: 07; Admin Dose 1 SPRAY; Start 09/29/16 at 11:02 Phenol (Cepastat Lozenge) 1 lozenge Q2H PRN MT SORE THROAT Last administered on 11/02/16 01:02; Admin Dose 1 LOZENGE; Start 10/01/16 at 19:00 IV Flush (NS 10 ml) 10 ml PRN PRN IV IV PROTOCOL Last administered on 11/17/16 03:20; Admin Dose 10 ML; Start 10/02/16 at 19:00 Hydromorphone HCl (Dilaudid) 0.5 mg Q4H PRN IV PAIN Last administered on 11:21; Admin Dose 0.5 MG; Start 10/06/16 at 18:30 Potassium Chloride 20 meq 20 meq DAILY GTB Last administered on 11/18/16 09:06 ; Admin Dose 20 MEQ; Start 10/30/16 at 12:00 Dextrose/Sodium Chloride 1,000 ml @ 75 mls/hr [id number] IV Last administered on 11/17/16 17:41; Admin Dose 75 MLS/HR; Start 11/12/16 at 04:30 Norepinephrine/ Dextrose (Levophed/D5W) 500 ml @ 1.87 mls/hr TITRATE IV Last administered on 11/18/16 09:45; Admin Dose 15 MLS/HR; Start 11/12/16 at 04:30 Metoprolol Tartrate 25 mg 25 mg Q6 PRN GTB For HR > 130 Last administered on 21:09; Admin Dose 25 MG; Start 11/12/16 at 22:30 Meropenem 100 ml @ 200 mls/hr Q8 IVPB Last administered on 11/18/16 05:45; Admin Dose 200 MLS/HR; Start 11/14/16 at 14:00 Vancomycin HCl/ Sodium Chloride (Vancocin/NS) 150 ml @ 75 mls/hr Q12H IVPB Last administered on 11/18/16 09:16; Admin Dose 75 MLS/HR; Start 11/15/16 at 10: 00 Acetaminophen (Tylenol Liquid) 650 mg Q6H PRN PEG PAIN AND OR ELEVATED TEMP; Start 11/16/16 at 20:04 Alprazolam (Xanax) 0.5 mg Q12H PRN PEG ANXIETY Last administered on 11/18/16 07 :48; Admin Dose 0.5 MG; Start 11/16/16 at 20:30 Ascorbic Acid (Vitamin C) 500 mg BID PEG Last administered on 11/18/16 09:06; Admin Dose 500 MG; Start 11/16/16 at 21:00 Atorvastatin Calcium (Lipitor) 20 mg QHS PEG Last administered on 11/17/16 21: 12; Admin Dose 20 MG; Start 11/16/16 at 21:00 Diazepam (Valium) 10 mg DAILY PEG Last administered on 11/18/16 09:06; Admin Dose 10 MG; Start 11/17/16 at 09:00 Duloxetine HCl (Cymbalta) 20 mg DAILY PEG Last administered on 11/18/16 09:06; Admin Dose 20 MG; Start 11/17/16 at 09:00 Fluconazole (Diflucan) 100 mg DAILY PEG Last administered on 11/18/16 09:06; Admin Dose 100 MG; Start 11/17/16 at 09:00 Lactobacillus Acidophilus (Florajen3 Capsule) 1 each TID PEG Last administered on 11/18/16 09:06; Admin Dose 1 EACH; Start 11/16/16 at 21:00 Metronidazole (Flagyl) 500 mg Q8 PEG Last administered on 11/18/16 05:45; Admin Dose 500 MG; Start 11/16/16 at 22:00 Promethazine HCl/ Codeine (Phenergan/ Codeine) 10 ml BID PRN PEG COUGH Last administered on 11/16/16 20:53; Admin Dose 10 ML; Start 11/16/16 at 20:00 Zolpidem Tartrate (Ambien) 5 mg QHS PRN PEG INSOMNIA; Start 11/16/16 at 20:00 Docusate Sodium (Colace Liquid Cup) 100 mg Q12 PRN GTB CONSTIPATION; Start 11/16 at 20:00 KLEBER DOAN MD Nov 18, 2016 11:44
--- NOTE | 2016-11-18 14:09 | CONS ---
Date/Time of Note Date/Time of Note DATE: 11/18/16 TIME: 14:08 Assessment/Plan Assessment/Plan Chief Complaint/Hosp Course SUBJECTIVE: No events overnight. On Levophed gtt, low-grade fevers, nad ANTIMICROBIALS: 1. Fluconazole. 2. Vancomycin. 3. Meropenem. 4. Flagyl INDWELLINGS: PICC line, PEG, George. PHYSICAL EXAMINATION: GENERAL: Chronically ill-appearing, cachectic, elderly woman, who is awake, in no distress. HEENT: Head atraumatic, normocephalic. Sclerae anicteric. Buccal mucosa dry. NECK: Supple. Trachea midline. CHEST: Chest rise is symmetrical. Breath sounds diminished to the bases. HEART: S1, S2. ABDOMEN: Soft, bowel tones present. EXTREMITIES: Without cyanosis. ASSESSMENT: 1. Septic shock. 2. Healthcare-associated pneumonia. 3. Acute respiratory failure. 4. Lung cancer. 5. Unstageable sacral wound, status post debridement, with wound VAC application. 6. Cachexia. PLAN: Remains hemodynamically unstable, covered with road spectrum antimicrobials. Prognosis is poor. DW staff Problems: Consultation Date/Type/Reason Admit Date/Time Sep 26, 2016 at 20:07 Type of Consultation: ID Referring Provider: DRE LOBATO MD Exam/Review of Systems Vital Signs Vitals Vital Signs Date Time Temp Pulse Resp B/P Pulse Ox O2 Delivery O2 Flow Rate FiO2 11/18/16 13:49 96 12.0 40 11/18/16 12:02 126 11/18/16 09:15 34 108/69 Venturi Mask 11/18/16 08:00 99.2 Intake and Output 11/17/16 11/17/16 11/18/16 15:00 23:00 07:00 Intake Total 1514.09 ml 808.08 ml 1493.34 ml Output Total 1075 ml 900 ml 800 ml Balance 439.09 ml -91.92 ml 693.34 ml Results Result Diagram: 11/18/16 0430 11/18/16 0430 Results 24 hrs Laboratory Tests Test 11/18/16 04:30 White Blood Count 18.7 H Red Blood Count 2.89 L Hemoglobin 7.7 L Hematocrit 25.4 L Mean Corpuscular Volume 87.9 Mean Corpuscular Hemoglobin 26.6 L Mean Corpuscular Hemoglobin Concent 30.3 L Red Cell Distribution Width 18.0 H Platelet Count 491 H Mean Platelet Volume 9.0 Neutrophils % 78.7 H Lymphocytes % 9.2 L Monocytes % 9.4 Eosinophils % 1.2 Basophils % 0.5 Nucleated Red Blood Cells % 0.0 Neutrophils # 14.7 H Lymphocytes # 1.7 Monocytes # 1.8 H Eosinophils # 0.2 Basophils # 0.1 Nucleated Red Blood Cells # 0.0 Sodium Level 133 L Potassium Level 3.8 Chloride Level 97 Carbon Dioxide Level 32 H Anion Gap 8 Blood Urea Nitrogen 14 Creatinine 0.41 L Glucose Level 147 Calcium Level 8.3 L Medications Medications Current Medications Ondansetron HCl (Zofran Inj) 4 mg Q6 PRN IV NAUSEA AND/OR VOMITING; Start 09/26 at 22:30 Collagenase (Santyl) 1 applic DAILY TOP Last administered on 11/17/16 10:55; Admin Dose 1 APPLIC; Start 09/27/16 at 09:00 Collagenase (Santyl) 1 applic PRN PRN TOP SOILED OR DISLODGED DRESSING; Start 09/27/16 at 05:00 Lansoprazole (Prevacid) 30 mg DAILY@06 GTB Last administered on 11/18/16 05:45 ; Admin Dose 30 MG; Start 09/28/16 at 06:00 Cromolyn Sodium (Nasalcrom) 1 spray QID NASAL Last administered on 11/18/16 13: 59; Admin Dose 1 SPRAY; Start 09/29/16 at 11:02 Phenol (Cepastat Lozenge) 1 lozenge Q2H PRN MT SORE THROAT Last administered on 11/02/16 01:02; Admin Dose 1 LOZENGE; Start 10/01/16 at 19:00 IV Flush (NS 10 ml) 10 ml PRN PRN IV IV PROTOCOL Last administered on 11/17/16 03:20; Admin Dose 10 ML; Start 10/02/16 at 19:00 Hydromorphone HCl (Dilaudid) 0.5 mg Q4H PRN IV PAIN Last administered on 11:21; Admin Dose 0.5 MG; Start 10/06/16 at 18:30 Potassium Chloride 20 meq 20 meq DAILY GTB Last administered on 11/18/16 09:06 ; Admin Dose 20 MEQ; Start 10/30/16 at 12:00 Dextrose/Sodium Chloride 1,000 ml @ 75 mls/hr [id number] IV Last administered on 11/18/16 12:30; Admin Dose 75 MLS/HR; Start 11/12/16 at 04:30 Norepinephrine/ Dextrose (Levophed/D5W) 500 ml @ 1.87 mls/hr TITRATE IV Last administered on 11/18/16 09:45; Admin Dose 15 MLS/HR; Start 11/12/16 at 04:30 Metoprolol Tartrate 25 mg 25 mg Q6 PRN GTB For HR > 130 Last administered on 21:09; Admin Dose 25 MG; Start 11/12/16 at 22:30 Meropenem 100 ml @ 200 mls/hr Q8 IVPB Last administered on 11/18/16 13:57; Admin Dose 200 MLS/HR; Start 11/14/16 at 14:00 Vancomycin HCl/ Sodium Chloride (Vancocin/NS) 150 ml @ 75 mls/hr Q12H IVPB Last administered on 11/18/16 09:16; Admin Dose 75 MLS/HR; Start 11/15/16 at 10: 00 Acetaminophen (Tylenol Liquid) 650 mg Q6H PRN PEG PAIN AND OR ELEVATED TEMP; Start 11/16/16 at 20:04 Alprazolam (Xanax) 0.5 mg Q12H PRN PEG ANXIETY Last administered on 11/18/16 07 :48; Admin Dose 0.5 MG; Start 11/16/16 at 20:30 Ascorbic Acid (Vitamin C) 500 mg BID PEG Last administered on 11/18/16 09:06; Admin Dose 500 MG; Start 11/16/16 at 21:00 Atorvastatin Calcium (Lipitor) 20 mg QHS PEG Last administered on 11/17/16 21: 12; Admin Dose 20 MG; Start 11/16/16 at 21:00 Diazepam (Valium) 10 mg DAILY PEG Last administered on 11/18/16 09:06; Admin Dose 10 MG; Start 11/17/16 at 09:00 Duloxetine HCl (Cymbalta) 20 mg DAILY PEG Last administered on 11/18/16 09:06; Admin Dose 20 MG; Start 11/17/16 at 09:00 Fluconazole (Diflucan) 100 mg DAILY PEG Last administered on 11/18/16 09:06; Admin Dose 100 MG; Start 11/17/16 at 09:00 Lactobacillus Acidophilus (Florajen3 Capsule) 1 each TID PEG Last administered on 11/18/16 13:59; Admin Dose 1 EACH; Start 11/16/16 at 21:00 Metronidazole (Flagyl) 500 mg Q8 PEG Last administered on 11/18/16 13:59; Admin Dose 500 MG; Start 11/16/16 at 22:00 Promethazine HCl/ Codeine (Phenergan/ Codeine) 10 ml BID PRN PEG COUGH Last administered on 11/16/16 20:53; Admin Dose 10 ML; Start 11/16/16 at 20:00 Zolpidem Tartrate (Ambien) 5 mg QHS PRN PEG INSOMNIA; Start 11/16/16 at 20:00 Docusate Sodium (Colace Liquid Cup) 100 mg Q12 PRN GTB CONSTIPATION; Start 11/16 at 20:00 RUBIN MAYEN NP Nov 18, 2016 14:09
--- NOTE | 2016-11-18 15:42 | CONS ---
Date/Time of Note Date/Time of Note DATE: 11/18/16 TIME: 15:41 Assessment/Plan Assessment/Plan Additional Assessment/Plan 1. Hyponatremia, multifactorial - pt likey has Component of SAIDH causing hypoantreia, due to acute on chronic pain 2. Status post acute kidney injury on chronic kidney disease due to systemic inflammatory response syndrome. now improved 3. Sepsis, 4. History of recurrent polymicrobial urinary tract infections. 5. History of dementia. 6. History of previous cerebrovascular accident. 7. History of chronic obstructive pulmonary disease, recently had acute respiratory failure secondary to chronic obstructive pulmonary disease exacerbation. 8. History of urinary retention with a chronic George catheter in place. 9. Chronic debility with cachexia. 10. Multiple decubitus ulcers with debris. Sacrococcygeal ulcer s/p exc boris . 11. History of degenerative joint disease of spine. 12. History of hypertension and hypertensive heart disease with mild to moderate concentric left ventricular hypertrophy and echocardiogram with diastolic dysfunction stage I.EF normal PLAN: off BIPAP but still on low dose levophed, pulmonary has been follwing on patient on low dose levophed Na 131 today , K stable, on daily K supplement monitor electrolytes Cr normal will follow up Consultation Date/Type/Reason Admit Date/Time Sep 26, 2016 at 20:07 Type of Consultation: NEPHROLOGY Referring Provider: DRE LOBATO MD 24 HR Interval Summary Free Text/Dictation BP very labile, afebrile, off BIPAP Exam/Review of Systems Vital Signs Vitals Vital Signs Date Time Temp Pulse Resp B/P Pulse Ox O2 Delivery O2 Flow Rate FiO2 11/18/16 13:49 96 12.0 40 11/18/16 12:02 126 11/18/16 09:15 34 108/69 Venturi Mask 11/18/16 08:00 99.2 Intake and Output 11/17/16 11/17/16 11/18/16 15:00 23:00 07:00 Intake Total 1514.09 ml 808.08 ml 1493.34 ml Output Total 1075 ml 900 ml 800 ml Balance 439.09 ml -91.92 ml 693.34 ml Exam GENERAL: Chronically ill-appearing, cachectic, elderly woman, who is awake, in no distress. HEENT: Head atraumatic, normocephalic. Sclerae anicteric. Buccal mucosa dry. NECK: Supple. Trachea midline. CHEST: Chest rise is symmetrical. Breath sounds diminished to the bases. HEART: S1, S2. ABDOMEN: Soft, bowel tones present. EXTREMITIES: Without cyanosis. Results Result Diagram: 11/18/16 0430 11/18/16 0430 Results 24 hrs Laboratory Tests Test 11/18/16 04:30 White Blood Count 18.7 H Red Blood Count 2.89 L Hemoglobin 7.7 L Hematocrit 25.4 L Mean Corpuscular Volume 87.9 Mean Corpuscular Hemoglobin 26.6 L Mean Corpuscular Hemoglobin Concent 30.3 L Red Cell Distribution Width 18.0 H Platelet Count 491 H Mean Platelet Volume 9.0 Neutrophils % 78.7 H Lymphocytes % 9.2 L Monocytes % 9.4 Eosinophils % 1.2 Basophils % 0.5 Nucleated Red Blood Cells % 0.0 Neutrophils # 14.7 H Lymphocytes # 1.7 Monocytes # 1.8 H Eosinophils # 0.2 Basophils # 0.1 Nucleated Red Blood Cells # 0.0 Sodium Level 133 L Potassium Level 3.8 Chloride Level 97 Carbon Dioxide Level 32 H Anion Gap 8 Blood Urea Nitrogen 14 Creatinine 0.41 L Glucose Level 147 Calcium Level 8.3 L Medications Medications Current Medications Ondansetron HCl (Zofran Inj) 4 mg Q6 PRN IV NAUSEA AND/OR VOMITING; Start 09/26 at 22:30 Collagenase (Santyl) 1 applic DAILY TOP Last administered on 11/17/16 10:55; Admin Dose 1 APPLIC; Start 09/27/16 at 09:00 Collagenase (Santyl) 1 applic PRN PRN TOP SOILED OR DISLODGED DRESSING; Start 09/27/16 at 05:00 Lansoprazole (Prevacid) 30 mg DAILY@06 GTB Last administered on 11/18/16 05:45 ; Admin Dose 30 MG; Start 09/28/16 at 06:00 Cromolyn Sodium (Nasalcrom) 1 spray QID NASAL Last administered on 11/18/16 13: 59; Admin Dose 1 SPRAY; Start 09/29/16 at 11:02 Phenol (Cepastat Lozenge) 1 lozenge Q2H PRN MT SORE THROAT Last administered on 11/02/16 01:02; Admin Dose 1 LOZENGE; Start 10/01/16 at 19:00 IV Flush (NS 10 ml) 10 ml PRN PRN IV IV PROTOCOL Last administered on 11/17/16 03:20; Admin Dose 10 ML; Start 10/02/16 at 19:00 Hydromorphone HCl (Dilaudid) 0.5 mg Q4H PRN IV PAIN Last administered on 11:21; Admin Dose 0.5 MG; Start 10/06/16 at 18:30 Potassium Chloride 20 meq 20 meq DAILY GTB Last administered on 11/18/16 09:06 ; Admin Dose 20 MEQ; Start 10/30/16 at 12:00 Dextrose/Sodium Chloride 1,000 ml @ 75 mls/hr [id number] IV Last administered on 11/18/16 12:30; Admin Dose 75 MLS/HR; Start 11/12/16 at 04:30 Norepinephrine/ Dextrose (Levophed/D5W) 500 ml @ 1.87 mls/hr TITRATE IV Last administered on 11/18/16 09:45; Admin Dose 15 MLS/HR; Start 11/12/16 at 04:30 Metoprolol Tartrate 25 mg 25 mg Q6 PRN GTB For HR > 130 Last administered on 21:09; Admin Dose 25 MG; Start 11/12/16 at 22:30 Meropenem 100 ml @ 200 mls/hr Q8 IVPB Last administered on 11/18/16 13:57; Admin Dose 200 MLS/HR; Start 11/14/16 at 14:00 Vancomycin HCl/ Sodium Chloride (Vancocin/NS) 150 ml @ 75 mls/hr Q12H IVPB Last administered on 11/18/16 09:16; Admin Dose 75 MLS/HR; Start 11/15/16 at 10: 00 Acetaminophen (Tylenol Liquid) 650 mg Q6H PRN PEG PAIN AND OR ELEVATED TEMP; Start 11/16/16 at 20:04 Alprazolam (Xanax) 0.5 mg Q12H PRN PEG ANXIETY Last administered on 11/18/16 07 :48; Admin Dose 0.5 MG; Start 11/16/16 at 20:30 Ascorbic Acid (Vitamin C) 500 mg BID PEG Last administered on 11/18/16 09:06; Admin Dose 500 MG; Start 11/16/16 at 21:00 Atorvastatin Calcium (Lipitor) 20 mg QHS PEG Last administered on 11/17/16 21: 12; Admin Dose 20 MG; Start 11/16/16 at 21:00 Diazepam (Valium) 10 mg DAILY PEG Last administered on 11/18/16 09:06; Admin Dose 10 MG; Start 11/17/16 at 09:00 Duloxetine HCl (Cymbalta) 20 mg DAILY PEG Last administered on 11/18/16 09:06; Admin Dose 20 MG; Start 11/17/16 at 09:00 Fluconazole (Diflucan) 100 mg DAILY PEG Last administered on 11/18/16 09:06; Admin Dose 100 MG; Start 11/17/16 at 09:00 Lactobacillus Acidophilus (Florajen3 Capsule) 1 each TID PEG Last administered on 11/18/16 13:59; Admin Dose 1 EACH; Start 11/16/16 at 21:00 Metronidazole (Flagyl) 500 mg Q8 PEG Last administered on 11/18/16 13:59; Admin Dose 500 MG; Start 11/16/16 at 22:00 Promethazine HCl/ Codeine (Phenergan/ Codeine) 10 ml BID PRN PEG COUGH Last administered on 11/16/16 20:53; Admin Dose 10 ML; Start 11/16/16 at 20:00 Zolpidem Tartrate (Ambien) 5 mg QHS PRN PEG INSOMNIA; Start 11/16/16 at 20:00 Docusate Sodium (Colace Liquid Cup) 100 mg Q12 PRN GTB CONSTIPATION; Start 11/16 at 20:00 DIONNE SAUCEDA MD Nov 18, 2016 15:42
[2016-11-18] MEDS: PROMETHAZINE/CODEINE 5ML CUP PEG PRN (18:35)
[2016-11-18] MEDS: ATORVASTATIN 20 MG TAB PEG SCH (20:57)
--- NOTE | 2016-11-18 23:08 | PN ---
Date/Time of Note Date/Time of Note DATE: 11/18/16 TIME: 23:07 Assessment/Plan Lines/Catheters IV Catheter Type (from [facility]): PICC Line George in Place (from [facility]): Yes Assessment/Plan Chief Complaint/Hosp Course 1. Multiple decubitus ulcers with debris. Sacrococcygeal ulcer s/p exc boris . -Offload -Optimize nutrition -Vitamin C -Local care 2. UTI s/p abx 3. 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 Acute on chronic diastolic heart failure -Judicious fluid management -Cardiac optimization 5. Hypertension -Diet and medication control 6. Chronic urinary retention with George 7. Depression. -Medical management 8. Hypothyroidism by history. -Synthroid 9. Anemia of chronic disease in addition to iron deficiency anemia. -Continue iron supplements. -Transfusion when necessary 10. Chronic pain syndrome. Continue pain management. Thank you Problems: Subjective 24 Hr Interval Summary Leukocytosis. Tachyarrhythmia. No fevers, chills, nausea, vomiting, or abdominal pain. No abnormal vaginal discharge. No bloating. No cough, sz, bloating. No robles/dizzy/visual or neuro changes. Exam/Review of Systems Vital Signs Vitals Vital Signs Date Time Temp Pulse Resp B/P Pulse Ox O2 Delivery O2 Flow Rate FiO2 11/18/16 21:45 139 39 109/80 94 11/18/16 21:00 Venturi Mask 11/18/16 20:00 99.2 11/18/16 19:20 12.0 40 Intake and Output 11/17/16 11/17/16 11/18/16 15:00 23:00 07:00 Intake Total 1514.09 ml 808.08 ml 1493.34 ml Output Total 1075 ml 900 ml 800 ml Balance 439.09 ml -91.92 ml 693.34 ml Exam Free Text/Dictation GENERAL: Elderly, cachectic, no acute distress. HEENT: Head is atraumatic, normocephalic. Pupils equal, round, reactive to light and accommodation. Oral mucosa is pink and moist. NECK: Supple, no cervical lymphadenopathy LUNGS: Normal respiratory effort CARDIAC: S1 and S2. Tachy, Irregular ABDOMEN: Flat, soft and nondistended. Nontender. No rebound or guarding. SKIN: Multiple decubitus wounds/ulcers buttock sacrum and right lower extremity EXTREMITIES: No edema. Pulses equal bilaterally, 2+. NEUROLOGICAL: Responsive VASCULAR: Refill is less than 2 seconds Results Result Diagram: 11/18/16 0430 11/18/16 0430 ZAK POSEY MD Nov 18, 2016 23:08
[2016-11-19] VITALS (98 sets, daily range): BP systolic 78–120; BP diastolic 47–89; PULSE 102–145; RESP 21–45
[2016-11-19] MEDS: HYDROmorphONE 1 MG/ML SYG IV PRN ×6 (01:02→22:15)
[2016-11-19] MEDS: ALBUTEROL/IPRATROPIUM (NEB) 3 ML AMP NEB PRN (01:26)
[2016-11-19] MEDS: DEXTROSE 5%-0.45% NACL 1,000 ML IV SCH ×2 (04:03→23:10)
[2016-11-19 04:28] LABS: ADD SCAN DIFF NO
[2016-11-19 04:34] LABS: ABNORMAL IP MESSAGE 1; BASOPHIL # 0.1 10^3/ul (0.0-0.1); BASOPHILS % 0.4 % (0.0-2.0); EOSINOPHILS # 0.3 10^3/ul (0.0-0.5); EOSINOPHILS % 1.9 % (0.0-7.0); HEMATOCRIT 24.9 % (37.0-47.0); HEMOGLOBIN 7.6 g/dl (12.0-16.0); LYMPHOCYTES # 2.1 10^3/ul (0.8-2.9); LYMPHOCYTES % 11.7 % (15.0-51.0); MEAN CORPUSCULAR HGB CONC 30.5 g/dl (32.0-37.0); MEAN CORPUSCULAR VOLUME 88.6 fl (82.0-101.0); MONOCYTE # 1.8 10^3/ul (0.3-0.9); MONOCYTES % 10.4 % (0.0-11.0); NEUTROPHIL # 13.1 10^3/ul (1.6-7.5); NEUTROPHILS % 74.9 % (39.0-77.0); PLATELET COUNT 495 10^3/UL (140-415); RED BLOOD COUNT 2.81 10^6/ul (4.20-5.40); RED CELL DISTRIBUTION WIDTH 18.2 % (11.5-14.5); WHITE BLOOD COUNT 17.5 10^3/ul (4.8-10.8)
[2016-11-19 04:54] LABS: ALBUMIN 2.8 g/dl (3.3-4.9); ALBUMIN/GLOBULIN RATIO 0.63; CALCIUM 8.2 mg/dl (8.4-10.2); CREATININE 0.4 mg/dl (0.44-1.00); POTASSIUM 3.6 mmol/L (3.5-5.1); TOTAL PROTEIN 7.2 g/dl (6.1-8.1)
[2016-11-19] MEDS: LANSOPRAZOLE 30 MG CAP GTB SCH (06:06)
[2016-11-19] MEDS: MEROPENEM 500 MG/100 ML (PMX) 100 ML IVPB SCH ×3 (06:06→21:48)
[2016-11-19] MEDS: metroNIDAZOLE 500 MG TAB PEG SCH ×3 (06:06→21:48)
[2016-11-19] MEDS: LEVOTHYROXINE 125 MCG TAB PEG SCH (08:05)
[2016-11-19] MEDS: COLLAGENASE 30 GM TUBE TOP SCH (09:00)
[2016-11-19] MEDS: POTASSIUM CHLORIDE 20 MEQ POWDER FOR ORAL SOLN GTB SCH (09:19)
[2016-11-19] MEDS: L ACIDOPHIL/B LACTIS/B LONGUM CAPSULE PEG SCH ×3 (09:19→20:19)
[2016-11-19] MEDS: DIAZEPAM 5 MG TAB PEG SCH (09:19)
[2016-11-19] MEDS: CROMOLYN 4% 26ML NAS INH NASAL SCH ×4 (09:19→20:20)
[2016-11-19] MEDS: ASCORBIC ACID 500 MG TAB PEG SCH ×2 (09:19→20:20)
[2016-11-19] MEDS: FLUCONAZOLE 100 MG TAB PEG SCH (09:20)
[2016-11-19] MEDS: DULOXETINE 20 MG CAP DR PEG SCH (09:20)
[2016-11-19] MEDS: VANCOMYCIN 750 MG in SOD CHLORIDE 0.9% 150 ML IVPB SCH ×2 (09:29→22:25)
--- NOTE | 2016-11-19 11:26 | CONS ---
Date/Time of Note Date/Time of Note DATE: 11/19/16 TIME: 11:24 Assessment/Plan Assessment/Plan Additional Assessment/Plan Assessment and recommendations; next 1. Patient admitted for severe sepsis from sacral decubitus ulcers currently on broad-spectrum antibiotic coverage. 2. Left lower lobe lung malignancy. 3. Severe COPD. 4. History of hypertension and diabetes. 5. Anemia. Continue current treatment. Wean down Levophed as tolerated. Consultation Date/Type/Reason Admit Date/Time Sep 26, 2016 at 20:07 Initial Consult Date 11/14/16 Type of Consultation: Pulmonary/critical care Referring Provider: DRE LOBATO MD 24 HR Interval Summary Free Text/Dictation Patient condition is stable. Still on Levophed at low-dose. Patient requiring 40% Ventimask for O2 saturation maintenance. Has been off BiPAP now. Patient denies any shortness of breath. General exam; elderly lady, awake alert currently in no distress. Exam/Review of Systems Vital Signs Vitals Vital Signs Date Time Temp Pulse Resp B/P Pulse Ox O2 Delivery O2 Flow Rate FiO2 11/19/16 08:22 123 11/19/16 06:15 23 106/76 100 11/19/16 06:00 BIPAP 11/19/16 05:55 40 11/19/16 04:00 99.3 11/19/16 01:46 12.0 Intake and Output 11/18/16 11/18/16 11/19/16 15:00 23:00 07:00 Intake Total 1609.29 ml 1334.88 ml 1223.06 ml Output Total 1350 ml 1325 ml 700 ml Balance 259.29 ml 9.88 ml 523.06 ml Exam HEENT exam; supple neck, no JVD. No lymphadenopathy. Midline trachea. No thyromegaly. Patient has a multiple carious teeth. Chest examination; diminished but clear vessel. S1-S2 audible, no murmurs. Regular rhythm. Abdomen examination; soft, no organomegaly. Bowel sounds audible. G-tube in place. Back examination; there is a wound VAC over sacral area. Extremity examination; there is no peripheral edema. MANAGER FRAUD examination; no focal deficit. Results Result Diagram: 11/19/16 0400 11/19/16 0400 Results 24 hrs Laboratory Tests Test 11/19/16 04:00 White Blood Count 17.5 H Red Blood Count 2.81 L Hemoglobin 7.6 L Hematocrit 24.9 L Mean Corpuscular Volume 88.6 Mean Corpuscular Hemoglobin 27.0 L Mean Corpuscular Hemoglobin Concent 30.5 L Red Cell Distribution Width 18.2 H Platelet Count 495 H Mean Platelet Volume 9.0 Neutrophils % 74.9 Lymphocytes % 11.7 L Monocytes % 10.4 Eosinophils % 1.9 Basophils % 0.4 Nucleated Red Blood Cells % 0.0 Neutrophils # 13.1 H Lymphocytes # 2.1 Monocytes # 1.8 H Eosinophils # 0.3 Basophils # 0.1 Nucleated Red Blood Cells # 0.0 Sodium Level 135 Potassium Level 3.6 Chloride Level 97 Carbon Dioxide Level 34 H Anion Gap 8 Blood Urea Nitrogen 13 Creatinine 0.40 L Glucose Level 170 Calcium Level 8.2 L Total Bilirubin 0.0 L Direct Bilirubin 0.00 Indirect Bilirubin 0.0 Aspartate Amino Transf (AST/SGOT) 34 Alanine Aminotransferase (ALT/SGPT) 41 Alkaline Phosphatase 236 H Total Protein 7.2 Albumin 2.8 L Globulin 4.40 H Albumin/Globulin Ratio 0.63 Medications Medications Current Medications Ondansetron HCl (Zofran Inj) 4 mg Q6 PRN IV NAUSEA AND/OR VOMITING; Start 09/26 at 22:30 Collagenase (Santyl) 1 applic DAILY TOP Last administered on 11/17/16 10:55; Admin Dose 1 APPLIC; Start 09/27/16 at 09:00 Collagenase (Santyl) 1 applic PRN PRN TOP SOILED OR DISLODGED DRESSING; Start 09/27/16 at 05:00 Lansoprazole (Prevacid) 30 mg DAILY@06 GTB Last administered on 11/19/16 06:06 ; Admin Dose 30 MG; Start 09/28/16 at 06:00 Cromolyn Sodium (Nasalcrom) 1 spray QID NASAL Last administered on 11/19/16 09: 19; Admin Dose 1 SPRAY; Start 09/29/16 at 11:02 Phenol (Cepastat Lozenge) 1 lozenge Q2H PRN MT SORE THROAT Last administered on 11/02/16 01:02; Admin Dose 1 LOZENGE; Start 10/01/16 at 19:00 IV Flush (NS 10 ml) 10 ml PRN PRN IV IV PROTOCOL Last administered on 11/17/16 03:20; Admin Dose 10 ML; Start 10/02/16 at 19:00 Hydromorphone HCl (Dilaudid) 0.5 mg Q4H PRN IV PAIN Last administered on 09:29; Admin Dose 0.5 MG; Start 10/06/16 at 18:30 Potassium Chloride 20 meq 20 meq DAILY GTB Last administered on 11/19/16 09:19 ; Admin Dose 20 MEQ; Start 10/30/16 at 12:00 Dextrose/Sodium Chloride 1,000 ml @ 75 mls/hr [id number] IV Last administered on 11/19/16 04:03; Admin Dose 75 MLS/HR; Start 11/12/16 at 04:30 Norepinephrine/ Dextrose (Levophed/D5W) 500 ml @ 1.87 mls/hr TITRATE IV Last administered on 11/18/16 09:45; Admin Dose 15 MLS/HR; Start 11/12/16 at 04:30 Metoprolol Tartrate 25 mg 25 mg Q6 PRN GTB For HR > 130 Last administered on 21:09; Admin Dose 25 MG; Start 11/12/16 at 22:30 Meropenem 100 ml @ 200 mls/hr Q8 IVPB Last administered on 11/19/16 06:06; Admin Dose 200 MLS/HR; Start 11/14/16 at 14:00 Vancomycin HCl/ Sodium Chloride (Vancocin/NS) 150 ml @ 75 mls/hr Q12H IVPB Last administered on 11/19/16 09:29; Admin Dose 75 MLS/HR; Start 11/15/16 at 10: 00 Acetaminophen (Tylenol Liquid) 650 mg Q6H PRN PEG PAIN AND OR ELEVATED TEMP; Start 11/16/16 at 20:04 Alprazolam (Xanax) 0.5 mg Q12H PRN PEG ANXIETY Last administered on 11/18/16 07 :48; Admin Dose 0.5 MG; Start 11/16/16 at 20:30 Ascorbic Acid (Vitamin C) 500 mg BID PEG Last administered on 11/19/16 09:19; Admin Dose 500 MG; Start 11/16/16 at 21:00 Atorvastatin Calcium (Lipitor) 20 mg QHS PEG Last administered on 11/18/16 20: 57; Admin Dose 20 MG; Start 11/16/16 at 21:00 Diazepam (Valium) 10 mg DAILY PEG Last administered on 11/19/16 09:19; Admin Dose 10 MG; Start 11/17/16 at 09:00 Duloxetine HCl (Cymbalta) 20 mg DAILY PEG Last administered on 11/19/16 09:20; Admin Dose 20 MG; Start 11/17/16 at 09:00 Fluconazole (Diflucan) 100 mg DAILY PEG Last administered on 11/19/16 09:20; Admin Dose 100 MG; Start 11/17/16 at 09:00 Lactobacillus Acidophilus (Florajen3 Capsule) 1 each TID PEG Last administered on 11/19/16 09:19; Admin Dose 1 EACH; Start 11/16/16 at 21:00 Metronidazole (Flagyl) 500 mg Q8 PEG Last administered on 11/19/16 06:06; Admin Dose 500 MG; Start 11/16/16 at 22:00 Promethazine HCl/ Codeine (Phenergan/ Codeine) 10 ml BID PRN PEG COUGH Last administered on 11/18/16 18:35; Admin Dose 10 ML; Start 11/16/16 at 20:00 Zolpidem Tartrate (Ambien) 5 mg QHS PRN PEG INSOMNIA; Start 11/16/16 at 20:00 Docusate Sodium (Colace Liquid Cup) 100 mg Q12 PRN GTB CONSTIPATION; Start 11/16 at 20:00 REGINE BUCKLEY Nov 19, 2016 11:26
--- NOTE | 2016-11-19 11:47 | PN ---
Date/Time of Note Date/Time of Note DATE: 11/19/16 TIME: 11:38 Assessment/Plan VTE Prophylaxis VTE Prophylaxis Intervention: other Lines/Catheters IV Catheter Type (from Nrs): PICC Line Central line still needed: Yes Urinary Cath still in place: Yes Reason Cath still needed: urinary retention Assessment/Plan Assessment/Plan 1. Sepsis with shock. Dr. Coleman is following the patient in infectious disease consultation. Continue antibiotics per ID. 2. Acute respiratory failure. Dr. Neri is following in pulmonology consultation. Continue breathing treatments and bronchodilators. 3. Left lung squamous carcinoma. 4. Chronic obstructive pulmonary disease. 5. Dysphagia, with G-tube placement. 6. Hypothyroidism. Continue Synthroid. 7. Anemia of chronic disease. - Transfuse PRN 8. Multiple wounds. Continue the current wound care, including wound VAC. 9. Acute on chronic pain. Continue the current pain medication. Continue sequential compression devices for deep venous thrombosis prophylaxis and Prevacid for peptic ulcer disease prophylaxis. Further recommendations based on clinical course. Plan of care discussed with Dr. Dozier. Subjective 24 Hr Interval Summary Free Text/Dictation Awake, c/o back pain, afebrile, On Levophed 5 mcgs. dw staff Respiratory: no complaints Cardiovascular: no complaints Gastrointestinal: no complaints Genitourinary: no complaints Musculoskeletal: back pain Skin: other Exam/Review of Systems Vital Signs Vitals Vital Signs Date Time Temp Pulse Resp B/P Pulse Ox O2 Delivery O2 Flow Rate FiO2 11/19/16 11:15 123 38 104/78 94 Venturi Mask 11/19/16 08:00 98.7 11/19/16 05:55 40 11/19/16 01:46 12.0 Intake and Output 11/18/16 11/18/16 11/19/16 15:00 23:00 07:00 Intake Total 1609.29 ml 1334.88 ml 1223.06 ml Output Total 1350 ml 1325 ml 700 ml Balance 259.29 ml 9.88 ml 523.06 ml Exam Constitutional: alert Psych: nl mood/affect Respiratory: clear to auscultation, normal air movement Cardiovascular: nl pulses, regular rate and rhythm Gastrointestinal: non-tender, soft Musculoskeletal: other Extremities: normal pulses Neurological: confused, nl speech Lymph: nontender Results Result Diagram: 11/19/16 0400 11/19/16 0400 Results 24 hrs Laboratory Tests Test 11/19/16 04:00 White Blood Count 17.5 H Red Blood Count 2.81 L Hemoglobin 7.6 L Hematocrit 24.9 L Mean Corpuscular Volume 88.6 Mean Corpuscular Hemoglobin 27.0 L Mean Corpuscular Hemoglobin Concent 30.5 L Red Cell Distribution Width 18.2 H Platelet Count 495 H Mean Platelet Volume 9.0 Neutrophils % 74.9 Lymphocytes % 11.7 L Monocytes % 10.4 Eosinophils % 1.9 Basophils % 0.4 Nucleated Red Blood Cells % 0.0 Neutrophils # 13.1 H Lymphocytes # 2.1 Monocytes # 1.8 H Eosinophils # 0.3 Basophils # 0.1 Nucleated Red Blood Cells # 0.0 Sodium Level 135 Potassium Level 3.6 Chloride Level 97 Carbon Dioxide Level 34 H Anion Gap 8 Blood Urea Nitrogen 13 Creatinine 0.40 L Glucose Level 170 Calcium Level 8.2 L Total Bilirubin 0.0 L Direct Bilirubin 0.00 Indirect Bilirubin 0.0 Aspartate Amino Transf (AST/SGOT) 34 Alanine Aminotransferase (ALT/SGPT) 41 Alkaline Phosphatase 236 H Total Protein 7.2 Albumin 2.8 L Globulin 4.40 H Albumin/Globulin Ratio 0.63 Medications Medications Current Medications Ondansetron HCl (Zofran Inj) 4 mg Q6 PRN IV NAUSEA AND/OR VOMITING; Start 09/26 at 22:30 Collagenase (Santyl) 1 applic DAILY TOP Last administered on 11/17/16 10:55; Admin Dose 1 APPLIC; Start 09/27/16 at 09:00 Collagenase (Santyl) 1 applic PRN PRN TOP SOILED OR DISLODGED DRESSING; Start 09/27/16 at 05:00 Lansoprazole (Prevacid) 30 mg DAILY@06 GTB Last administered on 11/19/16 06:06 ; Admin Dose 30 MG; Start 09/28/16 at 06:00 Cromolyn Sodium (Nasalcrom) 1 spray QID NASAL Last administered on 11/19/16 09: 19; Admin Dose 1 SPRAY; Start 09/29/16 at 11:02 Phenol (Cepastat Lozenge) 1 lozenge Q2H PRN MT SORE THROAT Last administered on 11/02/16 01:02; Admin Dose 1 LOZENGE; Start 10/01/16 at 19:00 IV Flush (NS 10 ml) 10 ml PRN PRN IV IV PROTOCOL Last administered on 11/17/16 03:20; Admin Dose 10 ML; Start 10/02/16 at 19:00 Hydromorphone HCl (Dilaudid) 0.5 mg Q4H PRN IV PAIN Last administered on 09:29; Admin Dose 0.5 MG; Start 10/06/16 at 18:30 Potassium Chloride 20 meq 20 meq DAILY GTB Last administered on 11/19/16 09:19 ; Admin Dose 20 MEQ; Start 10/30/16 at 12:00 Dextrose/Sodium Chloride 1,000 ml @ 75 mls/hr [id number] IV Last administered on 11/19/16 04:03; Admin Dose 75 MLS/HR; Start 11/12/16 at 04:30 Norepinephrine/ Dextrose (Levophed/D5W) 500 ml @ 1.87 mls/hr TITRATE IV Last administered on 11/18/16 09:45; Admin Dose 15 MLS/HR; Start 11/12/16 at 04:30 Metoprolol Tartrate 25 mg 25 mg Q6 PRN GTB For HR > 130 Last administered on 21:09; Admin Dose 25 MG; Start 11/12/16 at 22:30 Meropenem 100 ml @ 200 mls/hr Q8 IVPB Last administered on 11/19/16 06:06; Admin Dose 200 MLS/HR; Start 11/14/16 at 14:00 Vancomycin HCl/ Sodium Chloride (Vancocin/NS) 150 ml @ 75 mls/hr Q12H IVPB Last administered on 11/19/16 09:29; Admin Dose 75 MLS/HR; Start 11/15/16 at 10: 00 Acetaminophen (Tylenol Liquid) 650 mg Q6H PRN PEG PAIN AND OR ELEVATED TEMP; Start 11/16/16 at 20:04 Alprazolam (Xanax) 0.5 mg Q12H PRN PEG ANXIETY Last administered on 11/18/16 07 :48; Admin Dose 0.5 MG; Start 11/16/16 at 20:30 Ascorbic Acid (Vitamin C) 500 mg BID PEG Last administered on 11/19/16 09:19; Admin Dose 500 MG; Start 11/16/16 at 21:00 Atorvastatin Calcium (Lipitor) 20 mg QHS PEG Last administered on 11/18/16 20: 57; Admin Dose 20 MG; Start 11/16/16 at 21:00 Diazepam (Valium) 10 mg DAILY PEG Last administered on 11/19/16 09:19; Admin Dose 10 MG; Start 11/17/16 at 09:00 Duloxetine HCl (Cymbalta) 20 mg DAILY PEG Last administered on 11/19/16 09:20; Admin Dose 20 MG; Start 11/17/16 at 09:00 Fluconazole (Diflucan) 100 mg DAILY PEG Last administered on 11/19/16 09:20; Admin Dose 100 MG; Start 11/17/16 at 09:00 Lactobacillus Acidophilus (Florajen3 Capsule) 1 each TID PEG Last administered on 11/19/16 09:19; Admin Dose 1 EACH; Start 11/16/16 at 21:00 Metronidazole (Flagyl) 500 mg Q8 PEG Last administered on 11/19/16 06:06; Admin Dose 500 MG; Start 11/16/16 at 22:00 Promethazine HCl/ Codeine (Phenergan/ Codeine) 10 ml BID PRN PEG COUGH Last administered on 11/18/16 18:35; Admin Dose 10 ML; Start 11/16/16 at 20:00 Zolpidem Tartrate (Ambien) 5 mg QHS PRN PEG INSOMNIA; Start 11/16/16 at 20:00 Docusate Sodium (Colace Liquid Cup) 100 mg Q12 PRN GTB CONSTIPATION; Start 11/16 at 20:00 VIKASH CASTANEDA Nov 19, 2016 11:47
[2016-11-19] MEDS ORDERED: SOD CHLORIDE 0.9% 250 ML IV* ONE (11:53)
--- NOTE | 2016-11-19 13:26 | PN ---
Date/Time of Note Date/Time of Note DATE: 11/19/16 TIME: 13:26 Assessment/Plan Lines/Catheters IV Catheter Type (from Nrs): PICC Line George in Place (from [facility]): Yes Assessment/Plan Chief Complaint/Hosp Course 1. Multiple decubitus ulcers with debris. Sacrococcygeal ulcer s/p exc boris . -Offload -Optimize nutrition -Vitamin C -Local care 2. UTI s/p abx 3. 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 Acute on chronic diastolic heart failure -Judicious fluid management -Cardiac optimization 5. Hypertension -Diet and medication control 6. Chronic urinary retention with George 7. Depression. -Medical management 8. Hypothyroidism by history. -Synthroid 9. Anemia of chronic disease in addition to iron deficiency anemia. -Continue iron supplements. -Transfusion when necessary 10. Chronic pain syndrome. Continue pain management. Thank you Problems: Subjective 24 Hr Interval Summary Leukocytosis. Tachyarrhythmia. No fevers, chills, nausea, vomiting, or abdominal pain. No abnormal vaginal discharge. No bloating. No cough, sz, bloating. No robles/dizzy/visual or neuro changes. Exam/Review of Systems Vital Signs Vitals Vital Signs Date Time Temp Pulse Resp B/P Pulse Ox O2 Delivery O2 Flow Rate FiO2 11/19/16 11:15 123 38 104/78 94 Venturi Mask 11/19/16 08:00 98.7 11/19/16 05:55 40 11/19/16 01:46 12.0 Intake and Output 11/18/16 11/18/16 11/19/16 15:00 23:00 07:00 Intake Total 1609.29 ml 1334.88 ml 1371.18 ml Output Total 1350 ml 1325 ml 825 ml Balance 259.29 ml 9.88 ml 546.18 ml Exam Free Text/Dictation GENERAL: Elderly, cachectic, no acute distress. HEENT: Head is atraumatic, normocephalic. Pupils equal, round, reactive to light and accommodation. Oral mucosa is pink and moist. NECK: Supple, no cervical lymphadenopathy LUNGS: Normal respiratory effort CARDIAC: S1 and S2. Tachy, Irregular ABDOMEN: Flat, soft and nondistended. Nontender. No rebound or guarding. SKIN: Multiple decubitus wounds/ulcers buttock sacrum and right lower extremity EXTREMITIES: No edema. Pulses equal bilaterally, 2+. NEUROLOGICAL: Responsive VASCULAR: Refill is less than 2 seconds Results Result Diagram: 11/19/160 11/19/160 ZAK POSEY MD Nov 19, 2016 13:26
--- NOTE | 2016-11-19 14:17 | CONS ---
Date/Time of Note Date/Time of Note DATE: 11/19/16 TIME: 14:12 Assessment/Plan Assessment/Plan Additional Assessment/Plan Septic shock Respiratory failure Hypotension Diastolic congestive heart failure Pulmonary hypertension Preserved ejection fraction Tricuspid valve regurgitation Lung cancer SVT -Patient still requiring IV pressor, will start midodrine and continue to titrate down IV pressor to maintain SBP greater than 90. Maintain potassium above 4.0 and magnesium above 2.0. Consultation Date/Type/Reason Admit Date/Time Sep 26, 2016 at 20:07 Type of Consultation: cv Referring Provider: DRE LOBATO MD 24 HR Interval Summary Free Text/Dictation As per nursing staff, patient remains on IV pressor. No new cardiac issues Exam/Review of Systems Vital Signs Vitals Vital Signs Date Time Temp Pulse Resp B/P Pulse Ox O2 Delivery O2 Flow Rate FiO2 11/19/16 14:00 115 36 109/76 94 Venturi Mask 11/19/16 12:00 98.7 11/19/16 05:55 40 11/19/16 01:46 12.0 Intake and Output 11/18/16 11/18/16 11/19/16 15:00 23:00 07:00 Intake Total 1609.29 ml 1334.88 ml 1371.18 ml Output Total 1350 ml 1325 ml 825 ml Balance 259.29 ml 9.88 ml 546.18 ml Exam Sedated, no apparent distress, on facemask Head: normocephalic Respiratory: other (Coarse breath sounds bilaterally, no wheezing) Cardiovascular: other (S1-S2 heard), regular rate and rhythm Gastrointestinal: bowel sounds, non-tender, soft Extremities: other (Trace edema) Results Result Diagram: 11/19/16 0400 11/19/16 0400 Results 24 hrs Laboratory Tests Test 11/19/16 04:00 White Blood Count 17.5 H Red Blood Count 2.81 L Hemoglobin 7.6 L Hematocrit 24.9 L Mean Corpuscular Volume 88.6 Mean Corpuscular Hemoglobin 27.0 L Mean Corpuscular Hemoglobin Concent 30.5 L Red Cell Distribution Width 18.2 H Platelet Count 495 H Mean Platelet Volume 9.0 Neutrophils % 74.9 Lymphocytes % 11.7 L Monocytes % 10.4 Eosinophils % 1.9 Basophils % 0.4 Nucleated Red Blood Cells % 0.0 Neutrophils # 13.1 H Lymphocytes # 2.1 Monocytes # 1.8 H Eosinophils # 0.3 Basophils # 0.1 Nucleated Red Blood Cells # 0.0 Sodium Level 135 Potassium Level 3.6 Chloride Level 97 Carbon Dioxide Level 34 H Anion Gap 8 Blood Urea Nitrogen 13 Creatinine 0.40 L Glucose Level 170 Calcium Level 8.2 L Total Bilirubin 0.0 L Direct Bilirubin 0.00 Indirect Bilirubin 0.0 Aspartate Amino Transf (AST/SGOT) 34 Alanine Aminotransferase (ALT/SGPT) 41 Alkaline Phosphatase 236 H Total Protein 7.2 Albumin 2.8 L Globulin 4.40 H Albumin/Globulin Ratio 0.63 Medications Medications Current Medications Ondansetron HCl (Zofran Inj) 4 mg Q6 PRN IV NAUSEA AND/OR VOMITING; Start 09/26 at 22:30 Collagenase (Santyl) 1 applic DAILY TOP Last administered on 11/17/16 10:55; Admin Dose 1 APPLIC; Start 09/27/16 at 09:00 Collagenase (Santyl) 1 applic PRN PRN TOP SOILED OR DISLODGED DRESSING; Start 09/27/16 at 05:00 Lansoprazole (Prevacid) 30 mg DAILY@06 GTB Last administered on 11/19/16 06:06 ; Admin Dose 30 MG; Start 09/28/16 at 06:00 Cromolyn Sodium (Nasalcrom) 1 spray QID NASAL Last administered on 11/19/16 13: 24; Admin Dose 1 SPRAY; Start 09/29/16 at 11:02 Phenol (Cepastat Lozenge) 1 lozenge Q2H PRN MT SORE THROAT Last administered on 11/02/16 01:02; Admin Dose 1 LOZENGE; Start 10/01/16 at 19:00 IV Flush (NS 10 ml) 10 ml PRN PRN IV IV PROTOCOL Last administered on 11/17/16 03:20; Admin Dose 10 ML; Start 10/02/16 at 19:00 Hydromorphone HCl (Dilaudid) 0.5 mg Q4H PRN IV PAIN Last administered on 13:23; Admin Dose 0.5 MG; Start 10/06/16 at 18:30 Potassium Chloride 20 meq 20 meq DAILY GTB Last administered on 11/19/16 09:19 ; Admin Dose 20 MEQ; Start 10/30/16 at 12:00 Dextrose/Sodium Chloride 1,000 ml @ 75 mls/hr [id number] IV Last administered on 11/19/16 04:03; Admin Dose 75 MLS/HR; Start 11/12/16 at 04:30 Norepinephrine/ Dextrose (Levophed/D5W) 500 ml @ 1.87 mls/hr TITRATE IV Last administered on 11/18/16 09:45; Admin Dose 15 MLS/HR; Start 11/12/16 at 04:30 Metoprolol Tartrate 25 mg 25 mg Q6 PRN GTB For HR > 130 Last administered on 21:09; Admin Dose 25 MG; Start 11/12/16 at 22:30 Meropenem 100 ml @ 200 mls/hr Q8 IVPB Last administered on 11/19/16 13:21; Admin Dose 200 MLS/HR; Start 11/14/16 at 14:00 Vancomycin HCl/ Sodium Chloride (Vancocin/NS) 150 ml @ 75 mls/hr Q12H IVPB Last administered on 11/19/16 09:29; Admin Dose 75 MLS/HR; Start 11/15/16 at 10: 00 Acetaminophen (Tylenol Liquid) 650 mg Q6H PRN PEG PAIN AND OR ELEVATED TEMP; Start 11/16/16 at 20:04 Alprazolam (Xanax) 0.5 mg Q12H PRN PEG ANXIETY Last administered on 11/18/16 07 :48; Admin Dose 0.5 MG; Start 11/16/16 at 20:30 Ascorbic Acid (Vitamin C) 500 mg BID PEG Last administered on 11/19/16 09:19; Admin Dose 500 MG; Start 11/16/16 at 21:00 Atorvastatin Calcium (Lipitor) 20 mg QHS PEG Last administered on 11/18/16 20: 57; Admin Dose 20 MG; Start 11/16/16 at 21:00 Diazepam (Valium) 10 mg DAILY PEG Last administered on 11/19/16 09:19; Admin Dose 10 MG; Start 11/17/16 at 09:00 Duloxetine HCl (Cymbalta) 20 mg DAILY PEG Last administered on 11/19/16 09:20; Admin Dose 20 MG; Start 11/17/16 at 09:00 Fluconazole (Diflucan) 100 mg DAILY PEG Last administered on 11/19/16 09:20; Admin Dose 100 MG; Start 11/17/16 at 09:00 Lactobacillus Acidophilus (Florajen3 Capsule) 1 each TID PEG Last administered on 11/19/16 13:22; Admin Dose 1 EACH; Start 11/16/16 at 21:00 Metronidazole (Flagyl) 500 mg Q8 PEG Last administered on 11/19/16 13:22; Admin Dose 500 MG; Start 11/16/16 at 22:00 Promethazine HCl/ Codeine (Phenergan/ Codeine) 10 ml BID PRN PEG COUGH Last administered on 11/18/16 18:35; Admin Dose 10 ML; Start 11/16/16 at 20:00 Zolpidem Tartrate (Ambien) 5 mg QHS PRN PEG INSOMNIA; Start 11/16/16 at 20:00 Docusate Sodium (Colace Liquid Cup) 100 mg Q12 PRN GTB CONSTIPATION; Start 11/16 at 20:00 Artemio Tipton DO Nov 19, 2016 14:17
[2016-11-19] MEDS ORDERED: POTASSIUM CHLORIDE 20 MEQ POWDER FOR ORAL SOLN JT ONE (14:30)
[2016-11-19] MEDS ORDERED: MAGNESIUM SULFATE 1 GM/D5W 100 ML IVPB ONE (14:30)
[2016-11-19] MEDS: PROMETHAZINE/CODEINE 5ML CUP PEG PRN (15:13)
--- NOTE | 2016-11-19 15:52 | CONS ---
Date/Time of Note Date/Time of Note DATE: 11/19/16 TIME: 15:51 Assessment/Plan Assessment/Plan Additional Assessment/Plan 1. Hyponatremia, multifactorial - pt likey has Component of SAIDH causing hypoantreia, due to acute on chronic pain 2. Status post acute kidney injury on chronic kidney disease due to systemic inflammatory response syndrome. now improved 3. Sepsis, 4. History of recurrent polymicrobial urinary tract infections. 5. History of dementia. 6. History of previous cerebrovascular accident. 7. History of chronic obstructive pulmonary disease, recently had acute respiratory failure secondary to chronic obstructive pulmonary disease exacerbation. 8. History of urinary retention with a chronic George catheter in place. 9. Chronic debility with cachexia. 10. Multiple decubitus ulcers with debris. Sacrococcygeal ulcer s/p exc boris . 11. History of degenerative joint disease of spine. 12. History of hypertension and hypertensive heart disease with mild to moderate concentric left ventricular hypertrophy and echocardiogram with diastolic dysfunction stage I.EF normal PLAN: off BIPAP but still on low dose levophed, pulmonary has been follwing on patient on low dose levophed Na 135 today , K stable, on daily K supplement monitor electrolytes Cr normal will follow up Consultation Date/Type/Reason Admit Date/Time Sep 26, 2016 at 20:07 Type of Consultation: NEPHROLOGY Referring Provider: DRE LOBATO MD 24 HR Interval Summary Free Text/Dictation on Highflow oxygen, noacut events,Still BP on low side Exam/Review of Systems Vital Signs Vitals Vital Signs Date Time Temp Pulse Resp B/P Pulse Ox O2 Delivery O2 Flow Rate FiO2 11/19/16 15:15 130 33 88/69 96 Venturi Mask 11/19/16 12:00 98.7 11/19/16 05:55 40 11/19/16 01:46 12.0 Intake and Output 11/18/16 11/18/16 11/19/16 14:59 22:59 06:59 Intake Total 1621.43 ml 1372.38 ml 1292.42 ml Output Total 1200 ml 1375 ml 900 ml Balance 421.43 ml -2.62 ml 392.42 ml Results Result Diagram: 11/19/16 0400 11/19/16 0400 Results 24 hrs Laboratory Tests Test 11/19/16 04:00 White Blood Count 17.5 H Red Blood Count 2.81 L Hemoglobin 7.6 L Hematocrit 24.9 L Mean Corpuscular Volume 88.6 Mean Corpuscular Hemoglobin 27.0 L Mean Corpuscular Hemoglobin Concent 30.5 L Red Cell Distribution Width 18.2 H Platelet Count 495 H Mean Platelet Volume 9.0 Neutrophils % 74.9 Lymphocytes % 11.7 L Monocytes % 10.4 Eosinophils % 1.9 Basophils % 0.4 Nucleated Red Blood Cells % 0.0 Neutrophils # 13.1 H Lymphocytes # 2.1 Monocytes # 1.8 H Eosinophils # 0.3 Basophils # 0.1 Nucleated Red Blood Cells # 0.0 Sodium Level 135 Potassium Level 3.6 Chloride Level 97 Carbon Dioxide Level 34 H Anion Gap 8 Blood Urea Nitrogen 13 Creatinine 0.40 L Glucose Level 170 Calcium Level 8.2 L Total Bilirubin 0.0 L Direct Bilirubin 0.00 Indirect Bilirubin 0.0 Aspartate Amino Transf (AST/SGOT) 34 Alanine Aminotransferase (ALT/SGPT) 41 Alkaline Phosphatase 236 H Total Protein 7.2 Albumin 2.8 L Globulin 4.40 H Albumin/Globulin Ratio 0.63 Medications Medications Current Medications Ondansetron HCl (Zofran Inj) 4 mg Q6 PRN IV NAUSEA AND/OR VOMITING; Start 09/26 at 22:30 Collagenase (Santyl) 1 applic DAILY TOP Last administered on 11/17/16 10:55; Admin Dose 1 APPLIC; Start 09/27/16 at 09:00 Collagenase (Santyl) 1 applic PRN PRN TOP SOILED OR DISLODGED DRESSING; Start 09/27/16 at 05:00 Lansoprazole (Prevacid) 30 mg DAILY@06 GTB Last administered on 11/19/16 06:06 ; Admin Dose 30 MG; Start 09/28/16 at 06:00 Cromolyn Sodium (Nasalcrom) 1 spray QID NASAL Last administered on 11/19/16 13: 24; Admin Dose 1 SPRAY; Start 09/29/16 at 11:02 Phenol (Cepastat Lozenge) 1 lozenge Q2H PRN MT SORE THROAT Last administered on 11/02/16 01:02; Admin Dose 1 LOZENGE; Start 10/01/16 at 19:00 IV Flush (NS 10 ml) 10 ml PRN PRN IV IV PROTOCOL Last administered on 11/17/16 03:20; Admin Dose 10 ML; Start 10/02/16 at 19:00 Hydromorphone HCl (Dilaudid) 0.5 mg Q4H PRN IV PAIN Last administered on 13:23; Admin Dose 0.5 MG; Start 10/06/16 at 18:30 Potassium Chloride 20 meq 20 meq DAILY GTB Last administered on 11/19/16 09:19 ; Admin Dose 20 MEQ; Start 10/30/16 at 12:00 Dextrose/Sodium Chloride 1,000 ml @ 75 mls/hr [id number] IV Last administered on 11/19/16 04:03; Admin Dose 75 MLS/HR; Start 11/12/16 at 04:30 Norepinephrine/ Dextrose (Levophed/D5W) 500 ml @ 1.87 mls/hr TITRATE IV Last administered on 11/18/16 09:45; Admin Dose 15 MLS/HR; Start 11/12/16 at 04:30 Metoprolol Tartrate 25 mg 25 mg Q6 PRN GTB For HR > 130 Last administered on 21:09; Admin Dose 25 MG; Start 11/12/16 at 22:30 Meropenem 100 ml @ 200 mls/hr Q8 IVPB Last administered on 11/19/16 13:21; Admin Dose 200 MLS/HR; Start 11/14/16 at 14:00 Vancomycin HCl/ Sodium Chloride (Vancocin/NS) 150 ml @ 75 mls/hr Q12H IVPB Last administered on 11/19/16 09:29; Admin Dose 75 MLS/HR; Start 11/15/16 at 10: 00 Acetaminophen (Tylenol Liquid) 650 mg Q6H PRN PEG PAIN AND OR ELEVATED TEMP; Start 11/16/16 at 20:04 Alprazolam (Xanax) 0.5 mg Q12H PRN PEG ANXIETY Last administered on 11/18/16 07 :48; Admin Dose 0.5 MG; Start 11/16/16 at 20:30 Ascorbic Acid (Vitamin C) 500 mg BID PEG Last administered on 11/19/16 09:19; Admin Dose 500 MG; Start 11/16/16 at 21:00 Atorvastatin Calcium (Lipitor) 20 mg QHS PEG Last administered on 11/18/16 20: 57; Admin Dose 20 MG; Start 11/16/16 at 21:00 Diazepam (Valium) 10 mg DAILY PEG Last administered on 11/19/16 09:19; Admin Dose 10 MG; Start 11/17/16 at 09:00 Duloxetine HCl (Cymbalta) 20 mg DAILY PEG Last administered on 11/19/16 09:20; Admin Dose 20 MG; Start 11/17/16 at 09:00 Fluconazole (Diflucan) 100 mg DAILY PEG Last administered on 11/19/16 09:20; Admin Dose 100 MG; Start 11/17/16 at 09:00 Lactobacillus Acidophilus (Florajen3 Capsule) 1 each TID PEG Last administered on 11/19/16 13:22; Admin Dose 1 EACH; Start 11/16/16 at 21:00 Metronidazole (Flagyl) 500 mg Q8 PEG Last administered on 11/19/16 13:22; Admin Dose 500 MG; Start 11/16/16 at 22:00 Promethazine HCl/ Codeine (Phenergan/ Codeine) 10 ml BID PRN PEG COUGH Last administered on 11/19/16 15:13; Admin Dose 10 ML; Start 11/16/16 at 20:00 Zolpidem Tartrate (Ambien) 5 mg QHS PRN PEG INSOMNIA; Start 11/16/16 at 20:00 Docusate Sodium (Colace Liquid Cup) 100 mg Q12 PRN GTB CONSTIPATION; Start 11/16 at 20:00 Midodrine (Proamatine) 2.5 mg TID@08,12,17 NGT ; Start 11/19/16 at 17:00 DIONNE SAUCEDA MD Nov 19, 2016 15:52
[2016-11-19] MEDS: MIDODRINE 2.5 MG TAB NGT SCH (17:14)
[2016-11-19] MEDS: ATORVASTATIN 20 MG TAB PEG SCH (20:20)
--- NOTE | 2016-11-19 23:38 | CONS ---
Date/Time of Note Date/Time of Note DATE: 11/19/16 TIME: 23:38 Assessment/Plan Assessment/Plan Chief Complaint/Hosp Course Left lung squamous carcinoma. The patient is not a candidate for chemotherapy. Anemia of chronic disease. monitor blood count closely transfuse as needed to keep HB above 8 Acute respiratory insufficiency requiring BiPAP. Acute shock, septic versus hypovolemic. tachycardia with episode of SVT. Chronic obstructive pulmonary disease. Dysphagia with G-tube. Continue current G-tube feeding. Hypothyroidism. Continue Synthroid. Problems: Consultation Date/Type/Reason Admit Date/Time Sep 26, 2016 at 20:07 Initial Consult Date 10/19/16 [facility] Referring Provider: DRE LOBATO MD 24 HR Interval Summary Free Text/Dictation Awake, c/o back pain, afebrile, On Levophed 5 mcgs. dw staff Exam/Review of Systems Vital Signs Vitals Vital Signs Date Time Temp Pulse Resp B/P Pulse Ox O2 Delivery O2 Flow Rate FiO2 11/19/16 21:45 135 38 117/81 93 11/19/16 21:00 Venturi Mask 11/19/16 20:00 100.5 11/19/16 13:00 6.0 30 Intake and Output 11/18/16 11/18/16 11/19/16 15:00 23:00 07:00 Intake Total 1609.29 ml 1334.88 ml 1371.18 ml Output Total 1350 ml 1325 ml 825 ml Balance 259.29 ml 9.88 ml 546.18 ml Exam Exam Constitutional: alert Psych: nl mood/affect Neck: non-tender, supple Respiratory: clear to auscultation, normal air movement Cardiovascular: nl pulses Gastrointestinal: non-tender, soft Musculoskeletal: muscle weakness Extremities: normal pulses Neurological: confused, nl speech Skin: other Lymph: nontender Results Result Diagram: 11/19/16 0400 11/19/16 0400 Results 24 hrs Laboratory Tests Test 11/19/16 04:00 White Blood Count 17.5 H Red Blood Count 2.81 L Hemoglobin 7.6 L Hematocrit 24.9 L Mean Corpuscular Volume 88.6 Mean Corpuscular Hemoglobin 27.0 L Mean Corpuscular Hemoglobin Concent 30.5 L Red Cell Distribution Width 18.2 H Platelet Count 495 H Mean Platelet Volume 9.0 Neutrophils % 74.9 Lymphocytes % 11.7 L Monocytes % 10.4 Eosinophils % 1.9 Basophils % 0.4 Nucleated Red Blood Cells % 0.0 Neutrophils # 13.1 H Lymphocytes # 2.1 Monocytes # 1.8 H Eosinophils # 0.3 Basophils # 0.1 Nucleated Red Blood Cells # 0.0 Sodium Level 135 Potassium Level 3.6 Chloride Level 97 Carbon Dioxide Level 34 H Anion Gap 8 Blood Urea Nitrogen 13 Creatinine 0.40 L Glucose Level 170 Calcium Level 8.2 L Total Bilirubin 0.0 L Direct Bilirubin 0.00 Indirect Bilirubin 0.0 Aspartate Amino Transf (AST/SGOT) 34 Alanine Aminotransferase (ALT/SGPT) 41 Alkaline Phosphatase 236 H Total Protein 7.2 Albumin 2.8 L Globulin 4.40 H Albumin/Globulin Ratio 0.63 Medications Medications Current Medications Ondansetron HCl (Zofran Inj) 4 mg Q6 PRN IV NAUSEA AND/OR VOMITING; Start 09/26 at 22:30 Collagenase (Santyl) 1 applic DAILY TOP Last administered on 11/17/16 10:55; Admin Dose 1 APPLIC; Start 09/27/16 at 09:00 Collagenase (Santyl) 1 applic PRN PRN TOP SOILED OR DISLODGED DRESSING; Start 09/27/16 at 05:00 Lansoprazole (Prevacid) 30 mg DAILY@06 GTB Last administered on 11/19/16 06:06 ; Admin Dose 30 MG; Start 09/28/16 at 06:00 Cromolyn Sodium (Nasalcrom) 1 spray QID NASAL Last administered on 11/19/16 20: 20; Admin Dose 1 SPRAY; Start 09/29/16 at 11:02 Phenol (Cepastat Lozenge) 1 lozenge Q2H PRN MT SORE THROAT Last administered on 11/02/16 01:02; Admin Dose 1 LOZENGE; Start 10/01/16 at 19:00 IV Flush (NS 10 ml) 10 ml PRN PRN IV IV PROTOCOL Last administered on 11/17/16 03:20; Admin Dose 10 ML; Start 10/02/16 at 19:00 Hydromorphone HCl (Dilaudid) 0.5 mg Q4H PRN IV PAIN Last administered on 22:15; Admin Dose 0.5 MG; Start 10/06/16 at 18:30 Potassium Chloride 20 meq 20 meq DAILY GTB Last administered on 11/19/16 09:19 ; Admin Dose 20 MEQ; Start 10/30/16 at 12:00 Dextrose/Sodium Chloride 1,000 ml @ 75 mls/hr [id number] IV Last administered on 11/19/16 04:03; Admin Dose 75 MLS/HR; Start 11/12/16 at 04:30 Norepinephrine/ Dextrose (Levophed/D5W) 500 ml @ 1.87 mls/hr TITRATE IV Last administered on 11/18/16 09:45; Admin Dose 15 MLS/HR; Start 11/12/16 at 04:30 Metoprolol Tartrate 25 mg 25 mg Q6 PRN GTB For HR > 130 Last administered on 21:09; Admin Dose 25 MG; Start 11/12/16 at 22:30 Meropenem 100 ml @ 200 mls/hr Q8 IVPB Last administered on 11/19/16 21:48; Admin Dose 200 MLS/HR; Start 11/14/16 at 14:00 Vancomycin HCl/ Sodium Chloride (Vancocin/NS) 150 ml @ 75 mls/hr Q12H IVPB Last administered on 11/19/16 22:25; Admin Dose 75 MLS/HR; Start 11/15/16 at 10: 00 Acetaminophen (Tylenol Liquid) 650 mg Q6H PRN PEG PAIN AND OR ELEVATED TEMP; Start 11/16/16 at 20:04 Alprazolam (Xanax) 0.5 mg Q12H PRN PEG ANXIETY Last administered on 11/18/16 07 :48; Admin Dose 0.5 MG; Start 11/16/16 at 20:30 Ascorbic Acid (Vitamin C) 500 mg BID PEG Last administered on 11/19/16 20:20; Admin Dose 500 MG; Start 11/16/16 at 21:00 Atorvastatin Calcium (Lipitor) 20 mg QHS PEG Last administered on 11/19/16 20: 20; Admin Dose 20 MG; Start 11/16/16 at 21:00 Diazepam (Valium) 10 mg DAILY PEG Last administered on 11/19/16 09:19; Admin Dose 10 MG; Start 11/17/16 at 09:00 Duloxetine HCl (Cymbalta) 20 mg DAILY PEG Last administered on 11/19/16 09:20; Admin Dose 20 MG; Start 11/17/16 at 09:00 Fluconazole (Diflucan) 100 mg DAILY PEG Last administered on 11/19/16 09:20; Admin Dose 100 MG; Start 11/17/16 at 09:00 Lactobacillus Acidophilus (Florajen3 Capsule) 1 each TID PEG Last administered on 11/19/16 20:19; Admin Dose 1 EACH; Start 11/16/16 at 21:00 Metronidazole (Flagyl) 500 mg Q8 PEG Last administered on 11/19/16 21:48; Admin Dose 500 MG; Start 11/16/16 at 22:00 Promethazine HCl/ Codeine (Phenergan/ Codeine) 10 ml BID PRN PEG COUGH Last administered on 11/19/16 15:13; Admin Dose 10 ML; Start 11/16/16 at 20:00 Zolpidem Tartrate (Ambien) 5 mg QHS PRN PEG INSOMNIA; Start 11/16/16 at 20:00 Docusate Sodium (Colace Liquid Cup) 100 mg Q12 PRN GTB CONSTIPATION; Start 11/16 at 20:00 Midodrine (Proamatine) 2.5 mg TID@08,,17 NGT Last administered on 11/19/16 17 :14; Admin Dose 2.5 MG; Start 11/19/16 at 17:00 DYLLAN CARRION MD Nov 19, 2016 23:38
[2016-11-20] VITALS (68 sets, daily range): BP systolic 76–126; BP diastolic 57–93; PULSE 98–134; RESP 18–43
[2016-11-20] MEDS: HYDROmorphONE 1 MG/ML SYG IV PRN ×4 (04:06→16:04)
[2016-11-20] MEDS: DEXTROSE 5%-0.45% NACL 1,000 ML IV SCH ×2 (04:07→12:48)
[2016-11-20 04:52] LABS: ADD SCAN DIFF NO
[2016-11-20 04:55] LABS: ABNORMAL IP MESSAGE 1; BASOPHIL # 0.1 10^3/ul (0.0-0.1); BASOPHILS % 0.4 % (0.0-2.0); EOSINOPHILS # 0.4 10^3/ul (0.0-0.5); EOSINOPHILS % 2.3 % (0.0-7.0); HEMATOCRIT 28.7 % (37.0-47.0); HEMOGLOBIN 8.6 g/dl (12.0-16.0); LYMPHOCYTES # 2.1 10^3/ul (0.8-2.9); LYMPHOCYTES % 12.1 % (15.0-51.0); MEAN CORPUSCULAR HEMOGLOBIN 26.2 pg (29.0-33.0); MEAN CORPUSCULAR VOLUME 87.5 fl (82.0-101.0); MEAN PLATELET VOLUME 9.2 fl (7.4-10.4); MONOCYTE # 2.1 10^3/ul (0.3-0.9); MONOCYTES % 12.2 % (0.0-11.0); NEUTROPHIL # 12.3 10^3/ul (1.6-7.5); NEUTROPHILS % 72.1 % (39.0-77.0); PLATELET COUNT 442 10^3/UL (140-415); RED BLOOD COUNT 3.28 10^6/ul (4.20-5.40); RED CELL DISTRIBUTION WIDTH 17.7 % (11.5-14.5); WHITE BLOOD COUNT 17.1 10^3/ul (4.8-10.8)
[2016-11-20 05:17] LABS: ALBUMIN 2.9 g/dl (3.3-4.9); ALBUMIN/GLOBULIN RATIO 0.64; CALCIUM 8.3 mg/dl (8.4-10.2); CREATININE 0.35 mg/dl (0.44-1.00); POTASSIUM 3.9 mmol/L (3.5-5.1); TOTAL PROTEIN 7.4 g/dl (6.1-8.1)
[2016-11-20] MEDS: LANSOPRAZOLE 30 MG CAP GTB SCH (05:29)
[2016-11-20] MEDS: MEROPENEM 500 MG/100 ML (PMX) 100 ML IVPB SCH ×3 (05:30→21:36)
[2016-11-20] MEDS: metroNIDAZOLE 500 MG TAB PEG SCH ×3 (05:30→21:36)
[2016-11-20] MEDS: ALPRAZOLAM 0.25 MG TAB PEG PRN (05:30)
[2016-11-20] MEDS: LEVOTHYROXINE 125 MCG TAB PEG SCH (06:09)
--- NOTE | 2016-11-20 07:39 | CONS ---
Date/Time of Note Date/Time of Note DATE: 11/12/16 TIME: 07:39 vk le Assessment/Plan Assessment/Plan Chief Complaint/Hosp Course Left lung squamous carcinoma. The patient is not a candidate for chemotherapy. Anemia of chronic disease. monitor blood count closely transfuse as needed to keep HB above 8 Acute respiratory insufficiency requiring BiPAP. Acute shock, septic versus hypovolemic. tachycardia with episode of SVT. Chronic obstructive pulmonary disease. Dysphagia with G-tube. Continue current G-tube feeding. Hypothyroidism. Continue Synthroid. Problems: Consultation Date/Type/Reason Admit Date/Time Sep 26, 2016 at 20:07 Initial Consult Date 10/19/16 Type of Consultation: hemeon Referring Provider: DRE LOBATO MD 24 HR Interval Summary Free Text/Dictation all noted count stable no bleeding Exam/Review of Systems Vital Signs Vitals Vital Signs Date Time Temp Pulse Resp B/P Pulse Ox O2 Delivery O2 Flow Rate FiO2 11/12/16 07:30 103 32 95/70 100 11/12/16 07:00 Nasal Cannula 6.0 11/12/16 03:30 97.6 Intake and Output 11/11/16 11/11/16 11/12/16 15:00 23:00 07:00 Intake Total 750 ml 312.0 ml Output Total 1000 ml 200 ml Balance -250 ml 112.0 ml Exam GENERAL: NAD, cachectic elderly female, resting in bed, seems comfortable HEENT: Head atraumatic, normocephalic. Sclerae anicteric. Buccal mucosa dry. NECK: Supple, trachea midline. CHEST: Rise symmetrical. Breath sounds diminished to bases bilaterally HEART: S1, S2. ABDOMEN: Soft. Bowel sounds present. GT intact EXTREMITIES: Wasted without cyanosis. Results Results Result Diagram: 11/12/16 0540 11/12/16 0540 Results 24 hrs Laboratory Tests Test 11/11/16 23:26 11/12/16 02:43 11/12/16 05:40 Bedside Glucose 134 125 White Blood Count 19.8 H Red Blood Count 3.42 L Hemoglobin 9.0 L Hematocrit 31.0 L Mean Corpuscular Volume 90.6 Mean Corpuscular Hemoglobin 26.3 L Mean Corpuscular Hemoglobin Concent 29.0 L Red Cell Distribution Width 18.1 H Platelet Count 450 H Mean Platelet Volume 9.7 Neutrophils % 76.8 Lymphocytes % 10.6 L Monocytes % 9.5 Eosinophils % 1.5 Basophils % 0.7 Nucleated Red Blood Cells % 0.0 Neutrophils # 15.2 H Lymphocytes # 2.1 Monocytes # 1.9 H Eosinophils # 0.3 Basophils # 0.1 Nucleated Red Blood Cells # 0.0 Sodium Level 146 H Potassium Level 4.3 Chloride Level 116 H Carbon Dioxide Level 28 Anion Gap 6 L Blood Urea Nitrogen 37 H Creatinine 0.77 Glucose Level 172 Lactic Acid Level 0.9 Calcium Level 9.3 Result Diagram: 11/20/160 11/20/16 0400 Results 24 hrs Laboratory Tests Test 11/20/16 04:00 11/20/16 04:59 White Blood Count 17.1 H Red Blood Count 3.28 L Hemoglobin 8.6 L Hematocrit 28.7 L Mean Corpuscular Volume 87.5 Mean Corpuscular Hemoglobin 26.2 L Mean Corpuscular Hemoglobin Concent 30.0 L Red Cell Distribution Width 17.7 H Platelet Count 442 H Mean Platelet Volume 9.2 Neutrophils % 72.1 Lymphocytes % 12.1 L Monocytes % 12.2 H Eosinophils % 2.3 Basophils % 0.4 Nucleated Red Blood Cells % 0.0 Neutrophils # 12.3 H Lymphocytes # 2.1 Monocytes # 2.1 H Eosinophils # 0.4 Basophils # 0.1 Nucleated Red Blood Cells # 0.0 Sodium Level 134 L Potassium Level 3.9 Chloride Level 98 Carbon Dioxide Level 31 Anion Gap 9 Blood Urea Nitrogen 14 Creatinine 0.35 L Glucose Level 139 Calcium Level 8.3 L Magnesium Level 1.5 L Total Bilirubin 0.0 L Direct Bilirubin 0.00 Indirect Bilirubin 0.0 Aspartate Amino Transf (AST/SGOT) 33 Alanine Aminotransferase (ALT/SGPT) 38 Alkaline Phosphatase 232 H Total Protein 7.4 Albumin 2.9 L Globulin 4.50 H Albumin/Globulin Ratio 0.64 Lab Scanned Report BLOOD TRANSFUSION Medications Medications Current Medications Ondansetron HCl (Zofran Inj) 4 mg Q6 PRN IV NAUSEA AND/OR VOMITING; Start 09/26 at 22:30 Collagenase (Santyl) 1 applic DAILY TOP Last administered on 11/17/16t 10:55; Admin Dose 1 APPLIC; Start 09/27/16 at 09:00 Collagenase (Santyl) 1 applic PRN PRN TOP SOILED OR DISLODGED DRESSING; Start 09/27/16 at 05:00 Lansoprazole (Prevacid) 30 mg DAILY@06 GTB Last administered on 11/20/16 05:29 ; Admin Dose 30 MG; Start 09/28/16 at 06:00 Cromolyn Sodium (Nasalcrom) 1 spray QID NASAL Last administered on 11/19/16 20: 20; Admin Dose 1 SPRAY; Start 09/29/16 at 11:02 Phenol (Cepastat Lozenge) 1 lozenge Q2H PRN MT SORE THROAT Last administered on 11/02/16 01:02; Admin Dose 1 LOZENGE; Start 10/01/16 at 19:00 IV Flush (NS 10 ml) 10 ml PRN PRN IV IV PROTOCOL Last administered on 11/17/16 03:20; Admin Dose 10 ML; Start 10/02/16 at 19:00 Hydromorphone HCl (Dilaudid) 0.5 mg Q4H PRN IV PAIN Last administered on 04:06; Admin Dose 0.5 MG; Start 10/06/16 at 18:30 Potassium Chloride 20 meq 20 meq DAILY GTB Last administered on 11/19/16 09:19 ; Admin Dose 20 MEQ; Start 10/30/16 at 12:00 Dextrose/Sodium Chloride 1,000 ml @ 75 mls/hr [id number] IV Last administered on 11/20/16 04:07; Admin Dose 75 MLS/HR; Start 11/12/16 at 04:30 Norepinephrine/ Dextrose (Levophed/D5W) 500 ml @ 1.87 mls/hr TITRATE IV Last administered on 11/18/16 09:45; Admin Dose 15 MLS/HR; Start 11/12/16 at 04:30 Metoprolol Tartrate 25 mg 25 mg Q6 PRN GTB For HR > 130 Last administered on 21:09; Admin Dose 25 MG; Start 11/12/16 at 22:30 Meropenem 100 ml @ 200 mls/hr Q8 IVPB Last administered on 11/20/16 05:30; Admin Dose 200 MLS/HR; Start 11/14/16 at 14:00 Vancomycin HCl/ Sodium Chloride (Vancocin/NS) 150 ml @ 75 mls/hr Q12H IVPB Last administered on 11/19/16 22:25; Admin Dose 75 MLS/HR; Start 11/15/16 at 10: 00 Acetaminophen (Tylenol Liquid) 650 mg Q6H PRN PEG PAIN AND OR ELEVATED TEMP; Start 11/16/16 at 20:04 Alprazolam (Xanax) 0.5 mg Q12H PRN PEG ANXIETY Last administered on 11/20/16 05 :30; Admin Dose 0.5 MG; Start 11/16/16 at 20:30 Ascorbic Acid (Vitamin C) 500 mg BID PEG Last administered on 11/19/16 20:20; Admin Dose 500 MG; Start 11/16/16 at 21:00 Atorvastatin Calcium (Lipitor) 20 mg QHS PEG Last administered on 11/19/16 20: 20; Admin Dose 20 MG; Start 11/16/16 at 21:00 Diazepam (Valium) 10 mg DAILY PEG Last administered on 11/19/16 09:19; Admin Dose 10 MG; Start 11/17/16 at 09:00 Duloxetine HCl (Cymbalta) 20 mg DAILY PEG Last administered on 11/19/16 09:20; Admin Dose 20 MG; Start 11/17/16 at 09:00 Fluconazole (Diflucan) 100 mg DAILY PEG Last administered on 11/19/16 09:20; Admin Dose 100 MG; Start 11/17/16 at 09:00 Lactobacillus Acidophilus (Florajen3 Capsule) 1 each TID PEG Last administered on 11/19/16 20:19; Admin Dose 1 EACH; Start 11/16/16 at 21:00 Metronidazole (Flagyl) 500 mg Q8 PEG Last administered on 11/20/16 05:30; Admin Dose 500 MG; Start 11/16/16 at 22:00 Promethazine HCl/ Codeine (Phenergan/ Codeine) 10 ml BID PRN PEG COUGH Last administered on 11/19/16 15:13; Admin Dose 10 ML; Start 11/16/16 at 20:00 Zolpidem Tartrate (Ambien) 5 mg QHS PRN PEG INSOMNIA; Start 11/16/16 at 20:00 Docusate Sodium (Colace Liquid Cup) 100 mg Q12 PRN GTB CONSTIPATION; Start 11/16 at 20:00 Midodrine (Proamatine) 2.5 mg TID@,, NGT Last administered on 11/19/16t 17 :14; Admin Dose 2.5 MG; Start 11/19/16 at 17:00 DYLLAN CARRION MD Nov 20, 2016 07:39
--- NOTE | 2016-11-20 08:07 | PN ---
DATE: 11/19/2016 INFECTIOUS DISEASE PROGRESS NOTE SUBJECTIVE: No acute changes. The patient remains lethargic, weak, on pressors and on face mask. She is tachycardic. VITAL SIGNS: T-MAX 99.8, T-current 98.7, pulse 125, respirations 38, blood pressure 104/78, saturat ion 94%. LABORATORY DATA: WBC 17.5, H and H 7.6 and 24.9, platelets 495, neutrophils 74.9. BUN 13, creatini ne 0.40. INDWELLINGS: PICC line, PEG, George. ANTIMICROBIALS: 1. Fluconazole. 2. Flagyl. 3. Vancomycin. 4. Meropenem. PHYSICAL EXAMINATION: GENERAL: This is a chronically ill-appearing, cachectic, elderly woman who is in no distress. The patient is obtunded. HEENT: Head atraumatic, normocephalic. Sclerae anicteric. Buccal mucosa dry. NECK: Supple. Trachea midline. CHEST: Rise symmetrical. Breath sounds with bilateral scattered crackles. HEART: S1, S2. ABDOMEN: Soft. Bowel tones present. EXTREMITIES: Without cyanosis. ASSESSMENT: 1. Sepsis with shock and multisystem organ failure. 2. Pneumonia with acute respiratory failure. 3. Lung cancer. 4. Unstageable sacral decubitus, status post debridement with wound VAC complication, status post t reatment with antibiotics. 5. Cachexia. 6. Dysphagia with failure to thrive. 7. History of C. difficile colitis. PLAN: The patient remains hemodynamically unstable, overall doing poorly. Continue present care. Continue on current antibiotics. Follow recommendations of consultants. Dictated By: RUBIN MAYEN [employer] for [employer] Conf#: [id number] DID#: [id number]
--- NOTE | 2016-11-20 08:56 | CONS ---
Date/Time of Note Date/Time of Note DATE: 11/20/16 TIME: 08:52 Assessment/Plan Assessment/Plan Additional Assessment/Plan 1. Hyponatremia, multifactorial - pt likey has Component of SAIDH causing hypoantreia, due to acute on chronic pain 2. Status post acute kidney injury on chronic kidney disease due to systemic inflammatory response syndrome. now improved 3. Sepsis, 4. History of recurrent polymicrobial urinary tract infections. 5. History of dementia. 6. History of previous cerebrovascular accident. 7. History of chronic obstructive pulmonary disease, recently had acute respiratory failure secondary to chronic obstructive pulmonary disease exacerbation. 8. History of urinary retention with a chronic George catheter in place. 9. Chronic debility with cachexia. 10. Multiple decubitus ulcers with debris. Sacrococcygeal ulcer s/p exc boris . 11. History of degenerative joint disease of spine. 12. History of hypertension and hypertensive heart disease with mild to moderate concentric left ventricular hypertrophy and echocardiogram with diastolic dysfunction stage I.EF normal 13. Hypomagnesemia PLAN: off BIPAP but still on low dose levophed, pulmonary has been following on patient on low dose levophed magnesium sulfate 2 gram IV x 1 dose now Na 134 today , K stable, on daily K supplement monitor electrolytes Cr normal will follow up Consultation Date/Type/Reason Admit Date/Time Sep 26, 2016 at 20:07 Type of Consultation: NEPHROLOGY Referring Provider: DRE LOBATO MD Exam/Review of Systems Vital Signs Vitals Vital Signs Date Time Temp Pulse Resp B/P Pulse Ox O2 Delivery O2 Flow Rate FiO2 11/20/16 08:30 128 40 114/86 94 11/20/16 08:15 6.0 30 11/20/16 08:00 98.8 Venturi Mask Intake and Output 11/19/16 11/19/16 11/20/16 15:00 23:00 07:00 Intake Total 1444.70 ml 1475.55 ml 1263.09 ml Output Total 950 ml 1150 ml 875 ml Balance 494.70 ml 325.55 ml 388.09 ml Exam GENERAL: Chronically ill-appearing, cachectic, elderly woman, who is awake, in no distress. HEENT: Head atraumatic, normocephalic. Sclerae anicteric. Buccal mucosa dry. NECK: Supple. Trachea midline. CHEST: Chest rise is symmetrical. Breath sounds diminished to the bases. HEART: S1, S2. ABDOMEN: Soft, bowel tones present. EXTREMITIES: Without cyanosis. Results Result Diagram: 11/20/1639911/20/16 040 Results 24 hrs Laboratory Tests Test 11/20/16 04:00 11/20/16 04:59 White Blood Count 17.1 H Red Blood Count 3.28 L Hemoglobin 8.6 L Hematocrit 28.7 L Mean Corpuscular Volume 87.5 Mean Corpuscular Hemoglobin 26.2 L Mean Corpuscular Hemoglobin Concent 30.0 L Red Cell Distribution Width 17.7 H Platelet Count 442 H Mean Platelet Volume 9.2 Neutrophils % 72.1 Lymphocytes % 12.1 L Monocytes % 12.2 H Eosinophils % 2.3 Basophils % 0.4 Nucleated Red Blood Cells % 0.0 Neutrophils # 12.3 H Lymphocytes # 2.1 Monocytes # 2.1 H Eosinophils # 0.4 Basophils # 0.1 Nucleated Red Blood Cells # 0.0 Sodium Level 134 L Potassium Level 3.9 Chloride Level 98 Carbon Dioxide Level 31 Anion Gap 9 Blood Urea Nitrogen 14 Creatinine 0.35 L Glucose Level 139 Calcium Level 8.3 L Magnesium Level 1.5 L Total Bilirubin 0.0 L Direct Bilirubin 0.00 Indirect Bilirubin 0.0 Aspartate Amino Transf (AST/SGOT) 33 Alanine Aminotransferase (ALT/SGPT) 38 Alkaline Phosphatase 232 H Total Protein 7.4 Albumin 2.9 L Globulin 4.50 H Albumin/Globulin Ratio 0.64 Lab Scanned Report BLOOD TRANSFUSION Medications Medications Current Medications Ondansetron HCl (Zofran Inj) 4 mg Q6 PRN IV NAUSEA AND/OR VOMITING; Start 09/26 at 22:30 Collagenase (Santyl) 1 applic DAILY TOP Last administered on 11/17/16 10:55; Admin Dose 1 APPLIC; Start 09/27/16 at 09:00 Collagenase (Santyl) 1 applic PRN PRN TOP SOILED OR DISLODGED DRESSING; Start 09/27/16 at 05:00 Lansoprazole (Prevacid) 30 mg DAILY@06 GTB Last administered on 11/20/16 05:29 ; Admin Dose 30 MG; Start 09/28/16 at 06:00 Cromolyn Sodium (Nasalcrom) 1 spray QID NASAL Last administered on 11/19/16 20: 20; Admin Dose 1 SPRAY; Start 09/29/16 at 11:02 Phenol (Cepastat Lozenge) 1 lozenge Q2H PRN MT SORE THROAT Last administered on 11/02/16 01:02; Admin Dose 1 LOZENGE; Start 10/01/16 at 19:00 IV Flush (NS 10 ml) 10 ml PRN PRN IV IV PROTOCOL Last administered on 11/17/16 03:20; Admin Dose 10 ML; Start 10/02/16 at 19:00 Hydromorphone HCl (Dilaudid) 0.5 mg Q4H PRN IV PAIN Last administered on 07:46; Admin Dose 0.5 MG; Start 10/06/16 at 18:30 Potassium Chloride 20 meq 20 meq DAILY GTB Last administered on 11/19/16 09:19 ; Admin Dose 20 MEQ; Start 10/30/16 at 12:00 Dextrose/Sodium Chloride 1,000 ml @ 75 mls/hr [id number] IV Last administered on 11/20/16 04:07; Admin Dose 75 MLS/HR; Start 11/12/16 at 04:30 Norepinephrine/ Dextrose (Levophed/D5W) 500 ml @ 1.87 mls/hr TITRATE IV Last administered on 11/18/16 09:45; Admin Dose 15 MLS/HR; Start 11/12/16 at 04:30 Metoprolol Tartrate 25 mg 25 mg Q6 PRN GTB For HR > 130 Last administered on 21:09; Admin Dose 25 MG; Start 11/12/16 at 22:30 Meropenem 100 ml @ 200 mls/hr Q8 IVPB Last administered on 11/20/16 05:30; Admin Dose 200 MLS/HR; Start 11/14/16 at 14:00 Vancomycin HCl/ Sodium Chloride (Vancocin/NS) 150 ml @ 75 mls/hr Q12H IVPB Last administered on 11/19/16 22:25; Admin Dose 75 MLS/HR; Start 11/15/16 at 10: 00 Acetaminophen (Tylenol Liquid) 650 mg Q6H PRN PEG PAIN AND OR ELEVATED TEMP; Start 11/16/16 at 20:04 Alprazolam (Xanax) 0.5 mg Q12H PRN PEG ANXIETY Last administered on 11/20/16 05 :30; Admin Dose 0.5 MG; Start 11/16/16 at 20:30 Ascorbic Acid (Vitamin C) 500 mg BID PEG Last administered on 11/19/16 20:20; Admin Dose 500 MG; Start 11/16/16 at 21:00 Atorvastatin Calcium (Lipitor) 20 mg QHS PEG Last administered on 11/19/16 20: 20; Admin Dose 20 MG; Start 11/16/16 at 21:00 Diazepam (Valium) 10 mg DAILY PEG Last administered on 11/19/16 09:19; Admin Dose 10 MG; Start 11/17/16 at 09:00 Duloxetine HCl (Cymbalta) 20 mg DAILY PEG Last administered on 11/19/16 09:20; Admin Dose 20 MG; Start 11/17/16 at 09:00 Fluconazole (Diflucan) 100 mg DAILY PEG Last administered on 11/19/16 09:20; Admin Dose 100 MG; Start 11/17/16 at 09:00 Lactobacillus Acidophilus (Florajen3 Capsule) 1 each TID PEG Last administered on 11/19/16 20:19; Admin Dose 1 EACH; Start 11/16/16 at 21:00 Metronidazole (Flagyl) 500 mg Q8 PEG Last administered on 11/20/16 05:30; Admin Dose 500 MG; Start 11/16/16 at 22:00 Promethazine HCl/ Codeine (Phenergan/ Codeine) 10 ml BID PRN PEG COUGH Last administered on 11/19/16 15:13; Admin Dose 10 ML; Start 11/16/16 at 20:00 Zolpidem Tartrate (Ambien) 5 mg QHS PRN PEG INSOMNIA; Start 11/16/16 at 20:00 Docusate Sodium (Colace Liquid Cup) 100 mg Q12 PRN GTB CONSTIPATION; Start 11/16 at 20:00 Midodrine (Proamatine) 2.5 mg TID@08,,17 NGT Last administered on 11/19/16 17 :14; Admin Dose 2.5 MG; Start 11/19/16 at 17:00 DIONNE SAUCEDA MD Nov 20, 2016 08:56
[2016-11-20] MEDS: DIAZEPAM 5 MG TAB PEG SCH (08:57)
[2016-11-20] MEDS: L ACIDOPHIL/B LACTIS/B LONGUM CAPSULE PEG SCH ×3 (08:57→20:13)
[2016-11-20] MEDS: DULOXETINE 20 MG CAP DR PEG SCH (08:57)
[2016-11-20] MEDS: ASCORBIC ACID 500 MG TAB PEG SCH ×2 (08:57→20:13)
[2016-11-20] MEDS: POTASSIUM CHLORIDE 20 MEQ POWDER FOR ORAL SOLN GTB SCH (08:57)
[2016-11-20] MEDS: FLUCONAZOLE 100 MG TAB PEG SCH (08:58)
[2016-11-20] MEDS: MIDODRINE 2.5 MG TAB NGT SCH ×3 (08:58→18:21)
[2016-11-20] MEDS: CROMOLYN 4% 26ML NAS INH NASAL SCH ×4 (08:58→20:13)
[2016-11-20] MEDS: COLLAGENASE 30 GM TUBE TOP SCH (08:58)
[2016-11-20] MEDS ORDERED: MAGNESIUM SULFATE 2 GM/50 ML 50 ML IVPB ONE ×2 (09:00→16:00)
[2016-11-20] MEDS: VANCOMYCIN 750 MG in SOD CHLORIDE 0.9% 150 ML IVPB SCH ×2 (09:38→22:14)
--- NOTE | 2016-11-20 10:39 | CONS ---
Date/Time of Note Date/Time of Note DATE: 11/20/16 TIME: 10:36 Assessment/Plan Assessment/Plan Additional Assessment/Plan Assessment recommendations; 1.patient admitted with severe sepsis currently on very low-dose Levophed currently being weaned down to discontinuation. 2. history of COPD. 3. History of lung malignancy involving left lower lobe. 4. History of diabetes and hypertension. Continue current treatment. Patient responding well to current treatment regimen. Once off Levophed patient can be transferred to the medical floor. Consultation Date/Type/Reason Admit Date/Time Sep 26, 2016 at 20:07 Initial Consult Date 11/14/16 Type of Consultation: Pulmonary/critical care Referring Provider: DRE LOBATO MD 24 HR Interval Summary Free Text/Dictation Patient condition is stable. Remains awake alert. Currently maintained on 30% Ventimask. Denies any shortness of breath, chest pain, abdominal pain, nausea vomiting fever. Complains of chronic pain. General examination;; elderly lady, awake alert currently in no distress. Exam/Review of Systems Vital Signs Vitals Vital Signs Date Time Temp Pulse Resp B/P Pulse Ox O2 Delivery O2 Flow Rate FiO2 11/20/16 08:30 128 40 114/86 94 11/20/16 08:15 6.0 30 11/20/16 08:00 98.8 Venturi Mask Intake and Output 11/19/16 11/19/16 11/20/16 15:00 23:00 07:00 Intake Total 1444.70 ml 1475.55 ml 1263.09 ml Output Total 950 ml 1150 ml 875 ml Balance 494.70 ml 325.55 ml 388.09 ml Exam HEENT exam is; supple neck, no JVD. No lymphadenopathy. Midline trachea. No thyromegaly. Pharynx is clear. Patient does have multiple carious teeth. Chest examination; clear to auscultation. S1-S2 audible, no murmurs. Regular rhythm. Tachycardic. Abdomen examination; soft, nontender. No organomegaly. G-tube in place. Bowel sounds audible. Extremity examination; no peripheral edema. Back examination; there is a wound VAC in the sacral area. [employer] examination; no focal deficit. Results Result Diagram: 11/20/16 0400 11/20/16 0400 Results 24 hrs Laboratory Tests Test 11/20/16 04:00 11/20/16 04:59 White Blood Count 17.1 H Red Blood Count 3.28 L Hemoglobin 8.6 L Hematocrit 28.7 L Mean Corpuscular Volume 87.5 Mean Corpuscular Hemoglobin 26.2 L Mean Corpuscular Hemoglobin Concent 30.0 L Red Cell Distribution Width 17.7 H Platelet Count 442 H Mean Platelet Volume 9.2 Neutrophils % 72.1 Lymphocytes % 12.1 L Monocytes % 12.2 H Eosinophils % 2.3 Basophils % 0.4 Nucleated Red Blood Cells % 0.0 Neutrophils # 12.3 H Lymphocytes # 2.1 Monocytes # 2.1 H Eosinophils # 0.4 Basophils # 0.1 Nucleated Red Blood Cells # 0.0 Sodium Level 134 L Potassium Level 3.9 Chloride Level 98 Carbon Dioxide Level 31 Anion Gap 9 Blood Urea Nitrogen 14 Creatinine 0.35 L Glucose Level 139 Calcium Level 8.3 L Magnesium Level 1.5 L Total Bilirubin 0.0 L Direct Bilirubin 0.00 Indirect Bilirubin 0.0 Aspartate Amino Transf (AST/SGOT) 33 Alanine Aminotransferase (ALT/SGPT) 38 Alkaline Phosphatase 232 H Total Protein 7.4 Albumin 2.9 L Globulin 4.50 H Albumin/Globulin Ratio 0.64 Lab Scanned Report BLOOD TRANSFUSION Medications Medications Current Medications Ondansetron HCl (Zofran Inj) 4 mg Q6 PRN IV NAUSEA AND/OR VOMITING; Start 09/26 at 22:30 Collagenase (Santyl) 1 applic DAILY TOP Last administered on 11/20/16 08:58; Admin Dose 1 APPLIC; Start 09/27/16 at 09:00 Collagenase (Santyl) 1 applic PRN PRN TOP SOILED OR DISLODGED DRESSING; Start 09/27/16 at 05:00 Lansoprazole (Prevacid) 30 mg DAILY@06 GTB Last administered on 11/20/16 05:29 ; Admin Dose 30 MG; Start 09/28/16 at 06:00 Cromolyn Sodium (Nasalcrom) 1 spray QID NASAL Last administered on 11/20/16 08: 58; Admin Dose 1 SPRAY; Start 09/29/16 at 11:02 Phenol (Cepastat Lozenge) 1 lozenge Q2H PRN MT SORE THROAT Last administered on 11/02/16 01:02; Admin Dose 1 LOZENGE; Start 10/01/16 at 19:00 IV Flush (NS 10 ml) 10 ml PRN PRN IV IV PROTOCOL Last administered on 11/17/16 03:20; Admin Dose 10 ML; Start 10/02/16 at 19:00 Hydromorphone HCl (Dilaudid) 0.5 mg Q4H PRN IV PAIN Last administered on 07:46; Admin Dose 0.5 MG; Start 10/06/16 at 18:30 Potassium Chloride 20 meq 20 meq DAILY GTB Last administered on 11/20/16 08:57 ; Admin Dose 20 MEQ; Start 10/30/16 at 12:00 Dextrose/Sodium Chloride 1,000 ml @ 75 mls/hr [id number] IV Last administered on 11/20/16 04:07; Admin Dose 75 MLS/HR; Start 11/12/16 at 04:30 Norepinephrine/ Dextrose (Levophed/D5W) 500 ml @ 1.87 mls/hr TITRATE IV Last administered on 11/18/16 09:45; Admin Dose 15 MLS/HR; Start 11/12/16 at 04:30 Metoprolol Tartrate 25 mg 25 mg Q6 PRN GTB For HR > 130 Last administered on 21:09; Admin Dose 25 MG; Start 11/12/16 at 22:30 Meropenem 100 ml @ 200 mls/hr Q8 IVPB Last administered on 11/20/16 05:30; Admin Dose 200 MLS/HR; Start 11/14/16 at 14:00 Vancomycin HCl/ Sodium Chloride (Vancocin/NS) 150 ml @ 75 mls/hr Q12H IVPB Last administered on 11/20/16 09:38; Admin Dose 75 MLS/HR; Start 11/15/16 at 10: 00 Acetaminophen (Tylenol Liquid) 650 mg Q6H PRN PEG PAIN AND OR ELEVATED TEMP; Start 11/16/16 at 20:04 Alprazolam (Xanax) 0.5 mg Q12H PRN PEG ANXIETY Last administered on 11/20/16 05 :30; Admin Dose 0.5 MG; Start 11/16/16 at 20:30 Ascorbic Acid (Vitamin C) 500 mg BID PEG Last administered on 11/20/16 08:57; Admin Dose 500 MG; Start 11/16/16 at 21:00 Atorvastatin Calcium (Lipitor) 20 mg QHS PEG Last administered on 11/19/16 20: 20; Admin Dose 20 MG; Start 11/16/16 at 21:00 Diazepam (Valium) 10 mg DAILY PEG Last administered on 11/20/16 08:57; Admin Dose 10 MG; Start 11/17/16 at 09:00 Duloxetine HCl (Cymbalta) 20 mg DAILY PEG Last administered on 11/20/16 08:57; Admin Dose 20 MG; Start 11/17/16 at 09:00 Fluconazole (Diflucan) 100 mg DAILY PEG Last administered on 11/20/16 08:58; Admin Dose 100 MG; Start 11/17/16 at 09:00 Lactobacillus Acidophilus (Florajen3 Capsule) 1 each TID PEG Last administered on 11/20/16 08:57; Admin Dose 1 EACH; Start 11/16/16 at 21:00 Metronidazole (Flagyl) 500 mg Q8 PEG Last administered on 11/20/16 05:30; Admin Dose 500 MG; Start 11/16/16 at 22:00 Promethazine HCl/ Codeine (Phenergan/ Codeine) 10 ml BID PRN PEG COUGH Last administered on 11/19/16 15:13; Admin Dose 10 ML; Start 11/16/16 at 20:00 Zolpidem Tartrate (Ambien) 5 mg QHS PRN PEG INSOMNIA; Start 11/16/16 at 20:00 Docusate Sodium (Colace Liquid Cup) 100 mg Q12 PRN GTB CONSTIPATION; Start 11/16 at 20:00 Midodrine 2.5 mg 2.5 mg TID@08,12,17 NGT Last administered on 11/20/16 08:58; Admin Dose 2.5 MG; Start 11/19/16 at 17:00 Magnesium Sulfate (Magnesium Sulfate 2 Gm/50 ml) 50 ml @ 25 mls/hr ONCE ONCE IVPB Last administered on 11/20/16 09:34; Admin Dose 25 MLS/HR; Start 11/20/16 at 09:00; Stop 11/20/16 at 10:59 REGINE BUCKLEY Nov 20, 2016 10:39
[2016-11-20] MEDS: ACETAMINOPHEN 650MG/20.3ML CUP PEG PRN (10:46)
[2016-11-20] MEDS ORDERED: oxyCODONE 5 MG TAB PO PRN (13:30)
--- NOTE | 2016-11-20 14:10 | PN ---
DATE: 11/20/2016 SUBJECTIVE: The patient is lying comfortably in bed on Ventimask. She is very weak, but awake. Sh e is also tachycardic with a T-max of yesterday, currently 98.8. Levophed is off since this m orning, pulse 133, respirations 40, blood pressure 91/65, saturation 96. LABORATORY DATA: WBC 17.1, H and H 8.6 and 28.7, platelets 442, neutrophils 72.1, BUN 14, creatinin e 0.35. INDWELLINGS: George, PEG, PICC line, sacral wound VAC. MICROBIOLOGY: Blood culture since 11/06/2016 and also remain negative. Urine culture negative . ANTIMICROBIALS: 1. Vancomycin. 2. Fluconazole. 3. Flagyl. 4. Meropenem. PHYSICAL EXAMINATION: GENERAL: This is a cachectic, chronically ill-appearing, elderly woman who is in n o distress. HEENT: Head atraumatic, normocephalic. Sclerae anicteric. Buccal mucosa dry. NECK: Supple, trachea midline. CHEST: Rise symmetrical. Breath sounds with scattered crackles. HEART: S1, S2. ABDOMEN: Soft. Bowel tones present. EXTREMITIES: Without cyanosis. ASSESSMENT: 1. Severe sepsis with multisystem organ failure. 2. Acute respiratory failure. 3. Pneumonia. 4. Unstageable sacral decubitus, status post debridement with wound VAC application. 5. Status post urinary tract infection (UTI) and C. difficile colitis. 6. Failure to thrive. 7. Lung cancer. PLAN: The patient remains unchanged, overall doing poorly. She is covered with broad spectrum anti biotics. She is being followed by multiple consultants. She is FULL CODE. Dictated By: RUBIN MAYEN [employer] for [employer] Conf#: [id number] DID#: [id number]
--- NOTE | 2016-11-20 15:36 | CONS ---
Date/Time of Note Date/Time of Note DATE: 11/20/16 TIME: 15:34 Assessment/Plan Assessment/Plan Additional Assessment/Plan Septic shock Respiratory failure Hypotension Diastolic congestive heart failure Pulmonary hypertension Preserved ejection fraction Tricuspid valve regurgitation Lung cancer SVT -Magnesium supplementation has already been ordered, continue Midodrine at the current time, no antihypertensives at the current time. Consultation Date/Type/Reason Admit Date/Time Sep 26, 2016 at 20:07 Type of Consultation: cv Referring Provider: DRE LOBATO MD 24 HR Interval Summary Free Text/Dictation Patient seen and examined, off IV pressor Exam/Review of Systems Vital Signs Vitals Vital Signs Date Time Temp Pulse Resp B/P Pulse Ox O2 Delivery O2 Flow Rate FiO2 11/20/16 14:45 120 31 90/72 94 11/20/16 13:00 Venturi Mask 11/20/16 12:00 98.1 11/20/16 08:15 6.0 30 Intake and Output 11/19/16 11/19/16 11/20/16 15:00 23:00 07:00 Intake Total 1444.70 ml 1475.55 ml 1323.09 ml Output Total 950 ml 1150 ml 1000 ml Balance 494.70 ml 325.55 ml 323.09 ml Exam No apparent distress, on facemask Head: normocephalic Respiratory: other (Coarse breath sounds bilaterally, no wheezing) Cardiovascular: other (S1-S2 heard), regular rate and rhythm Gastrointestinal: bowel sounds, non-tender, soft Extremities: other (No edema) Results Result Diagram: 11/20/16 0400 11/20/16 0400 Results 24 hrs Laboratory Tests Test 11/20/16 04:00 11/20/16 04:59 White Blood Count 17.1 H Red Blood Count 3.28 L Hemoglobin 8.6 L Hematocrit 28.7 L Mean Corpuscular Volume 87.5 Mean Corpuscular Hemoglobin 26.2 L Mean Corpuscular Hemoglobin Concent 30.0 L Red Cell Distribution Width 17.7 H Platelet Count 442 H Mean Platelet Volume 9.2 Neutrophils % 72.1 Lymphocytes % 12.1 L Monocytes % 12.2 H Eosinophils % 2.3 Basophils % 0.4 Nucleated Red Blood Cells % 0.0 Neutrophils # 12.3 H Lymphocytes # 2.1 Monocytes # 2.1 H Eosinophils # 0.4 Basophils # 0.1 Nucleated Red Blood Cells # 0.0 Sodium Level 134 L Potassium Level 3.9 Chloride Level 98 Carbon Dioxide Level 31 Anion Gap 9 Blood Urea Nitrogen 14 Creatinine 0.35 L Glucose Level 139 Calcium Level 8.3 L Magnesium Level 1.5 L Total Bilirubin 0.0 L Direct Bilirubin 0.00 Indirect Bilirubin 0.0 Aspartate Amino Transf (AST/SGOT) 33 Alanine Aminotransferase (ALT/SGPT) 38 Alkaline Phosphatase 232 H Total Protein 7.4 Albumin 2.9 L Globulin 4.50 H Albumin/Globulin Ratio 0.64 Lab Scanned Report BLOOD TRANSFUSION Medications Medications Current Medications Ondansetron HCl (Zofran Inj) 4 mg Q6 PRN IV NAUSEA AND/OR VOMITING; Start 09/26 at 22:30 Collagenase (Santyl) 1 applic DAILY TOP Last administered on 11/20/16 08:58; Admin Dose 1 APPLIC; Start 09/27/16 at 09:00 Collagenase (Santyl) 1 applic PRN PRN TOP SOILED OR DISLODGED DRESSING; Start 09/27/16 at 05:00 Lansoprazole (Prevacid) 30 mg DAILY@06 GTB Last administered on 11/20/16 05:29 ; Admin Dose 30 MG; Start 09/28/16 at 06:00 Cromolyn Sodium (Nasalcrom) 1 spray QID NASAL Last administered on 11/20/16 13: 52; Admin Dose 1 SPRAY; Start 09/29/16 at 11:02 Phenol (Cepastat Lozenge) 1 lozenge Q2H PRN MT SORE THROAT Last administered on 11/02/16 01:02; Admin Dose 1 LOZENGE; Start 10/01/16 at 19:00 IV Flush (NS 10 ml) 10 ml PRN PRN IV IV PROTOCOL Last administered on 11/17/16 03:20; Admin Dose 10 ML; Start 10/02/16 at 19:00 Hydromorphone HCl (Dilaudid) 0.5 mg Q4H PRN IV PAIN Last administered on 11:36; Admin Dose 0.5 MG; Start 10/06/16 at 18:30 Potassium Chloride 20 meq 20 meq DAILY GTB Last administered on 11/20/16 08:57 ; Admin Dose 20 MEQ; Start 10/30/16 at 12:00 Dextrose/Sodium Chloride 1,000 ml @ 75 mls/hr [id number] IV Last administered on 11/20/16 12:48; Admin Dose 75 MLS/HR; Start 11/12/16 at 04:30 Norepinephrine/ Dextrose (Levophed/D5W) 500 ml @ 1.87 mls/hr TITRATE IV Last administered on 11/18/16 09:45; Admin Dose 15 MLS/HR; Start 11/12/16 at 04:30 Metoprolol Tartrate 25 mg 25 mg Q6 PRN GTB For HR > 130 Last administered on 21:09; Admin Dose 25 MG; Start 11/12/16 at 22:30 Meropenem 100 ml @ 200 mls/hr Q8 IVPB Last administered on 11/20/16 13:52; Admin Dose 200 MLS/HR; Start 11/14/16 at 14:00 Vancomycin HCl/ Sodium Chloride (Vancocin/NS) 150 ml @ 75 mls/hr Q12H IVPB Last administered on 11/20/16 09:38; Admin Dose 75 MLS/HR; Start 11/15/16 at 10: 00 Acetaminophen (Tylenol Liquid) 650 mg Q6H PRN PEG PAIN AND OR ELEVATED TEMP Last administered on 11/20/16 10:46; Admin Dose 650 MG; Start 11/16/16 at 20:04 Alprazolam (Xanax) 0.5 mg Q12H PRN PEG ANXIETY Last administered on 11/20/16 05 :30; Admin Dose 0.5 MG; Start 11/16/16 at 20:30 Ascorbic Acid (Vitamin C) 500 mg BID PEG Last administered on 11/20/16 08:57; Admin Dose 500 MG; Start 11/16/16 at 21:00 Atorvastatin Calcium (Lipitor) 20 mg QHS PEG Last administered on 11/19/16 20: 20; Admin Dose 20 MG; Start 11/16/16 at 21:00 Diazepam (Valium) 10 mg DAILY PEG Last administered on 11/20/16 08:57; Admin Dose 10 MG; Start 11/17/16 at 09:00 Duloxetine HCl (Cymbalta) 20 mg DAILY PEG Last administered on 11/20/16 08:57; Admin Dose 20 MG; Start 11/17/16 at 09:00 Fluconazole (Diflucan) 100 mg DAILY PEG Last administered on 11/20/16 08:58; Admin Dose 100 MG; Start 11/17/16 at 09:00 Lactobacillus Acidophilus (Florajen3 Capsule) 1 each TID PEG Last administered on 11/20/16 13:52; Admin Dose 1 EACH; Start 11/16/16 at 21:00 Metronidazole (Flagyl) 500 mg Q8 PEG Last administered on 11/20/16 13:52; Admin Dose 500 MG; Start 11/16/16 at 22:00 Promethazine HCl/ Codeine (Phenergan/ Codeine) 10 ml BID PRN PEG COUGH Last administered on 11/19/16 15:13; Admin Dose 10 ML; Start 11/16/16 at 20:00 Zolpidem Tartrate (Ambien) 5 mg QHS PRN PEG INSOMNIA; Start 11/16/16 at 20:00 Docusate Sodium (Colace Liquid Cup) 100 mg Q12 PRN GTB CONSTIPATION; Start 11/16 at 20:00 Midodrine (Proamatine) 2.5 mg TID@,,17 NGT Last administered on 11/20/16 11 :37; Admin Dose 2.5 MG; Start 11/19/16 at 17:00 Miscellaneous Information (*Rx Drug Level Order Reminder*) 1 ONCE ONCE XX ; Start 11/20/16 at 21:00; Stop 11/20/16 at 21:01 Oxycodone HCl (Roxicodone) 10 mg Q4H PO ; Start 11/20/16 at 17:30 Artemio Tipton DO Nov 20, 2016 15:36
[2016-11-20] MEDS ORDERED: MAGNESIUM SULFATE 4 GM/100 ML 100 ML IVPB ONE (16:00)
--- NOTE | 2016-11-20 16:47 | PN ---
DATE: 11/20/2016 SUBJECTIVE: Follow up on 66-year-old female with lung cancer, acute respiratory failure and failure to thrive. The patient is currently monitored in ICU patient is weaned off Levophed today at 10:00 a.m.; however, still has borderline hypertension. Patient is awake, currently on face oxygen mask, resting comfortably. The patient remains tachycardic and tachypneic, respiratory rate is better wh en patient is resting compared to being awake. Patient tolerating G-tube feeding well per nursing s taff assess. OBJECTIVE: VITAL SIGNS: Temperature is 98.1, pulse 120, respiratory rate 28, blood pressure is 94/64, respirat ory rate is 30% Venturi mask. GENERAL: Cachectic female in no acute distress. HEENT: Head is atraumatic, normocephalic. NECK: Supple. LUNGS: Diminished air entry bilaterally. HEART: Normal S1, S2. No murmurs, gallops, clicks, rubs noted. patient is tachycardic. ABDOMEN: Flat, soft. Bowel sounds present. G-tube with intact stoma. EXTREMITIES: No edema. SKIN: Patient has multiple decubitus ulcers including bilateral buttocks and bilateral lower extrem ities and patient has a sacral wound to wound VAC. NEUROLOGIC: Patient is awake, alert to name and situation when awake. LABORATORY AND DIAGNOSTIC DATA: CBC: White blood cells 17.1, hemoglobin 8.6, hematocrit 28.7, plat elets 442. Chemistry: Sodium is 134, potassium 3.9, chloride 98, carbon dioxide 31, anion gap 9, B UN is 14, creatinine 0.35, glucose 139, calcium is 8.3, magnesium is 1.5. ASSESSMENT AND PLAN: Sepsis with shock. Continue antibiotics per ID. Dr. Coleman following in infe ctious disease consultation. Continue pressors for hemodynamic support. 1. Acute respiratory failure. Continue breathing treatment, oxygen supplementation and bronchodila tors. ____ is following in pulmonology consultation. 2. Left lung squamous carcinoma. Dr. Calvo is following in hematology/oncology consultation. 3. Chronic obstructive pulmonary disease. Continue breathing treatment. 4. Dysphagia with G-tube placement. Continue G-tube feeding, monitor residual. 5. Multiple ulcers. Continue current wound care including wound VAC to sacrum. Dr. Sinclair is fol lowing in general surgery consultation. 6. Hypothyroidism. Continue Synthroid. 7. Anemia of chronic disease. Continue to monitor hemoglobin and hematocrit. Transfuse p.r.n. 8. Acute on chronic pain. Continue current pain regimen. 9. Failure to thrive. 10. Hyponatremia, multifactorial, Dr. Zapata is following in nephrology consultation. 11. Hypomagnesemia. Will replace magnesium. Continue to monitor electrolytes. Continue sequentia l compression device for deep venous thrombosis prophylaxis. Further recommendations based on clini christian course. Plan of care discussed with Dr. Lobato. Dictated By: REBECCA ISLAS METAL CNC OPERATOR for DRE LOBATO MD SR/NTS Conf#: [id number] DID#: [id number]
[2016-11-20] MEDS: oxyCODONE 5 MG TAB PO SCH ×2 (18:22→21:36)
[2016-11-20] MEDS: ATORVASTATIN 20 MG TAB PEG SCH (20:13)
--- NOTE | 2016-11-20 23:26 | CONS ---
Date/Time of Note Date/Time of Note DATE: 11/20/16 TIME: 23:25 Assessment/Plan Assessment/Plan Chief Complaint/Hosp Course Left lung squamous carcinoma. The patient is not a candidate for chemotherapy. Anemia of chronic disease. post 8 u prbc monitor blood count closely transfuse as needed to keep HB above 8 Acute respiratory insufficiency requiring BiPAP. Acute shock, septic versus hypovolemic. tachycardia with episode of SVT. Chronic obstructive pulmonary disease. Dysphagia with G-tube. Continue current G-tube feeding. Hypothyroidism. Continue Synthroid. Problems: Consultation Date/Type/Reason Admit Date/Time Sep 26, 2016 at 20:07 Initial Consult Date 10/19/16 [facility] Referring Provider: DRE LOBATO MD 24 HR Interval Summary Free Text/Dictation all noted no new events Exam/Review of Systems Vital Signs Vitals Vital Signs Date Time Temp Pulse Resp B/P Pulse Ox O2 Delivery O2 Flow Rate FiO2 11/20/16 23:00 107 27 92/57 100 Venturi Mask 11/20/16 21:03 6.0 30 11/20/16 20:00 97.9 Intake and Output 11/19/16 11/19/16 11/20/16 15:00 23:00 07:00 Intake Total 1444.70 ml 1475.55 ml 1323.09 ml Output Total 950 ml 1150 ml 1000 ml Balance 494.70 ml 325.55 ml 323.09 ml Exam GENERAL: Cachectic female in no acute distress. HEENT: Head is atraumatic, normocephalic. NECK: Supple. LUNGS: Diminished air entry bilaterally. HEART: Normal S1, S2. No murmurs, gallops, clicks, rubs noted. patient is tachycardic. ABDOMEN: Flat, soft. Bowel sounds present. G-tube with intact stoma. EXTREMITIES: No edema. SKIN: Patient has multiple decubitus ulcers including bilateral buttocks and bilateral lower extremities and patient has a sacral wound to wound VAC. NEUROLOGIC: Patient is awake, alert to name and situation when awake. Results Result Diagram: 11/20/16 0400 11/20/16 0400 Results 24 hrs Laboratory Tests Test 11/20/16 04:00 11/20/16 04:59 11/20/16 21:05 White Blood Count 17.1 H Red Blood Count 3.28 L Hemoglobin 8.6 L Hematocrit 28.7 L Mean Corpuscular Volume 87.5 Mean Corpuscular Hemoglobin 26.2 L Mean Corpuscular Hemoglobin Concent 30.0 L Red Cell Distribution Width 17.7 H Platelet Count 442 H Mean Platelet Volume 9.2 Neutrophils % 72.1 Lymphocytes % 12.1 L Monocytes % 12.2 H Eosinophils % 2.3 Basophils % 0.4 Nucleated Red Blood Cells % 0.0 Neutrophils # 12.3 H Lymphocytes # 2.1 Monocytes # 2.1 H Eosinophils # 0.4 Basophils # 0.1 Nucleated Red Blood Cells # 0.0 Sodium Level 134 L Potassium Level 3.9 Chloride Level 98 Carbon Dioxide Level 31 Anion Gap 9 Blood Urea Nitrogen 14 Creatinine 0.35 L Glucose Level 139 Calcium Level 8.3 L Magnesium Level 1.5 L Total Bilirubin 0.0 L Direct Bilirubin 0.00 Indirect Bilirubin 0.0 Aspartate Amino Transf (AST/SGOT) 33 Alanine Aminotransferase (ALT/SGPT) 38 Alkaline Phosphatase 232 H Total Protein 7.4 Albumin 2.9 L Globulin 4.50 H Albumin/Globulin Ratio 0.64 Lab Scanned Report BLOOD TRANSFUSION Vancomycin Level Trough 15.5 Medications Medications Current Medications Ondansetron HCl (Zofran Inj) 4 mg Q6 PRN IV NAUSEA AND/OR VOMITING; Start 09/26 at 22:30 Collagenase (Santyl) 1 applic DAILY TOP Last administered on 11/20/16 08:58; Admin Dose 1 APPLIC; Start 09/27/16 at 09:00 Collagenase (Santyl) 1 applic PRN PRN TOP SOILED OR DISLODGED DRESSING; Start 09/27/16 at 05:00 Lansoprazole (Prevacid) 30 mg DAILY@06 GTB Last administered on 11/20/16 05:29 ; Admin Dose 30 MG; Start 09/28/16 at 06:00 Cromolyn Sodium (Nasalcrom) 1 spray QID NASAL Last administered on 11/20/16 20: 13; Admin Dose 1 SPRAY; Start 09/29/16 at 11:02 Phenol (Cepastat Lozenge) 1 lozenge Q2H PRN MT SORE THROAT Last administered on 11/02/16 01:02; Admin Dose 1 LOZENGE; Start 10/01/16 at 19:00 IV Flush (NS 10 ml) 10 ml PRN PRN IV IV PROTOCOL Last administered on 11/17/16 03:20; Admin Dose 10 ML; Start 10/02/16 at 19:00 Hydromorphone HCl (Dilaudid) 0.5 mg Q4H PRN IV PAIN Last administered on 16:04; Admin Dose 0.5 MG; Start 10/06/16 at 18:30 Potassium Chloride 20 meq 20 meq DAILY GTB Last administered on 11/20/16 08:57 ; Admin Dose 20 MEQ; Start 10/30/16 at 12:00 Dextrose/Sodium Chloride 1,000 ml @ 75 mls/hr [id number] IV Last administered on 11/20/16 12:48; Admin Dose 75 MLS/HR; Start 11/12/16 at 04:30 Norepinephrine/ Dextrose (Levophed/D5W) 500 ml @ 1.87 mls/hr TITRATE IV Last administered on 11/18/16 09:45; Admin Dose 15 MLS/HR; Start 11/12/16 at 04:30 Metoprolol Tartrate 25 mg 25 mg Q6 PRN GTB For HR > 130 Last administered on 21:09; Admin Dose 25 MG; Start 11/12/16 at 22:30 Meropenem 100 ml @ 200 mls/hr Q8 IVPB Last administered on 11/20/16 21:36; Admin Dose 200 MLS/HR; Start 11/14/16 at 14:00 Vancomycin HCl/ Sodium Chloride (Vancocin/NS) 150 ml @ 75 mls/hr Q12H IVPB Last administered on 11/20/16 22:14; Admin Dose 75 MLS/HR; Start 11/15/16 at 10: 00 Acetaminophen (Tylenol Liquid) 650 mg Q6H PRN PEG PAIN AND OR ELEVATED TEMP Last administered on 11/20/16 10:46; Admin Dose 650 MG; Start 11/16/16 at 20:04 Alprazolam (Xanax) 0.5 mg Q12H PRN PEG ANXIETY Last administered on 11/20/16 05 :30; Admin Dose 0.5 MG; Start 11/16/16 at 20:30 Ascorbic Acid (Vitamin C) 500 mg BID PEG Last administered on 11/20/16 20:13; Admin Dose 500 MG; Start 11/16/16 at 21:00 Atorvastatin Calcium (Lipitor) 20 mg QHS PEG Last administered on 11/20/16 20: 13; Admin Dose 20 MG; Start 11/16/16 at 21:00 Diazepam (Valium) 10 mg DAILY PEG Last administered on 11/20/16 08:57; Admin Dose 10 MG; Start 11/17/16 at 09:00 Duloxetine HCl (Cymbalta) 20 mg DAILY PEG Last administered on 11/20/16 08:57; Admin Dose 20 MG; Start 11/17/16 at 09:00 Fluconazole (Diflucan) 100 mg DAILY PEG Last administered on 11/20/16 08:58; Admin Dose 100 MG; Start 11/17/16 at 09:00 Lactobacillus Acidophilus (Florajen3 Capsule) 1 each TID PEG Last administered on 11/20/16 20:13; Admin Dose 1 EACH; Start 11/16/16 at 21:00 Metronidazole (Flagyl) 500 mg Q8 PEG Last administered on 11/20/16 21:36; Admin Dose 500 MG; Start 11/16/16 at 22:00 Promethazine HCl/ Codeine (Phenergan/ Codeine) 10 ml BID PRN PEG COUGH Last administered on 11/19/16 15:13; Admin Dose 10 ML; Start 11/16/16 at 20:00 Zolpidem Tartrate (Ambien) 5 mg QHS PRN PEG INSOMNIA; Start 11/16/16 at 20:00 Docusate Sodium (Colace Liquid Cup) 100 mg Q12 PRN GTB CONSTIPATION; Start 11/16 at 20:00 Midodrine (Proamatine) 2.5 mg TID@08,12,17 NGT Last administered on 11/20/16 18 :21; Admin Dose 2.5 MG; Start 11/19/16 at 17:00 Oxycodone HCl (Roxicodone) 10 mg Q4H PO Last administered on 11/20/16 21:36; Admin Dose 10 MG; Start 11/20/16 at 17:30 DYLLAN CARRION MD Nov 20, 2016 23:26
[2016-11-21] VITALS (23 sets, daily range): BP systolic 78–112; BP diastolic 57–81; PULSE 99–117; RESP 25–35
[2016-11-21] MEDS: oxyCODONE 5 MG TAB PO SCH ×6 (01:36→21:30)
[2016-11-21] MEDS: DEXTROSE 5%-0.45% NACL 1,000 ML IV SCH ×2 (02:03→20:21)
[2016-11-21 04:46] LABS: ADD SCAN DIFF NO
--- NOTE | 2016-11-21 04:50 | PN ---
Date/Time of Note Date/Time of Note DATE: 11/20/16 TIME: 11:48 Assessment/Plan Lines/Catheters IV Catheter Type (from Nrs): PICC Line George in Place (from Nrs): Yes Assessment/Plan Chief Complaint/Hosp Course 1. Multiple decubitus ulcers with debris. Sacrococcygeal ulcer s/p exc boris . -Offload -Optimize nutrition -Vitamin C -Local care 2. UTI s/p abx 3. 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 Acute on chronic diastolic heart failure -Judicious fluid management -Cardiac optimization 5. Hypertension -Diet and medication control 6. Chronic urinary retention with George 7. Depression. -Medical management 8. Hypothyroidism by history. -Synthroid 9. Anemia of chronic disease in addition to iron deficiency anemia. -Continue iron supplements. -Transfusion when necessary 10. Chronic pain syndrome. Continue pain management. Thank you Late entry 11/20 Problems: Subjective 24 Hr Interval Summary Leukocytosis. Tachyarrhythmia. No fevers, chills, nausea, vomiting, or abdominal pain. No abnormal vaginal discharge. No bloating. No cough, sz, bloating. No robles/dizzy/visual or neuro changes. Exam/Review of Systems Vital Signs Vitals Vital Signs Date Time Temp Pulse Resp B/P Pulse Ox O2 Delivery O2 Flow Rate FiO2 11/21/16 04:00 106 28 99/77 96 Venturi Mask 11/21/16 00:00 98.0 11/20/16 21:03 6.0 30 Intake and Output 11/20/16 11/20/16 11/21/16 15:00 23:00 07:00 Intake Total 1662.49 ml 1325 ml 884 ml Output Total 810 ml 565 ml 290 ml Balance 852.49 ml 760 ml 594 ml Exam Free Text/Dictation GENERAL: Elderly, cachectic, no acute distress. HEENT: Head is atraumatic, normocephalic. Pupils equal, round, reactive to light and accommodation. Oral mucosa is pink and moist. NECK: Supple, no cervical lymphadenopathy LUNGS: Normal respiratory effort CARDIAC: S1 and S2. Tachy, Irregular ABDOMEN: Flat, soft and nondistended. Nontender. No rebound or guarding. SKIN: Multiple decubitus wounds/ulcers buttock sacrum and right lower extremity EXTREMITIES: No edema. Pulses equal bilaterally, 2+. NEUROLOGICAL: Responsive VASCULAR: Refill is less than 2 seconds Results Result Diagram: 11/20/1639911/20/160 ZAK POSEY MD Nov 21, 2016 04:50
[2016-11-21 04:56] LABS: ABNORMAL IP MESSAGE 1; BASOPHIL # 0.1 10^3/ul (0.0-0.1); BASOPHILS % 0.4 % (0.0-2.0); EOSINOPHILS # 0.5 10^3/ul (0.0-0.5); EOSINOPHILS % 3.2 % (0.0-7.0); HEMATOCRIT 28.7 % (37.0-47.0); HEMOGLOBIN 8.4 g/dl (12.0-16.0); LYMPHOCYTES # 1.6 10^3/ul (0.8-2.9); LYMPHOCYTES % 10.9 % (15.0-51.0); MEAN CORPUSCULAR HEMOGLOBIN 26.4 pg (29.0-33.0); MEAN CORPUSCULAR HGB CONC 29.3 g/dl (32.0-37.0); MEAN CORPUSCULAR VOLUME 90.3 fl (82.0-101.0); MEAN PLATELET VOLUME 9.5 fl (7.4-10.4); MONOCYTE # 1.7 10^3/ul (0.3-0.9); MONOCYTES % 11.1 % (0.0-11.0); NEUTROPHILS % 73.6 % (39.0-77.0); PLATELET COUNT 450 10^3/UL (140-415); RED BLOOD COUNT 3.18 10^6/ul (4.20-5.40); RED CELL DISTRIBUTION WIDTH 17.8 % (11.5-14.5); WHITE BLOOD COUNT 14.9 10^3/ul (4.8-10.8)
[2016-11-21 05:21] LABS: CALCIUM 8.4 mg/dl (8.4-10.2); CREATININE 0.36 mg/dl (0.44-1.00); MAGNESIUM 2.3 mg/dl (1.7-2.5); POTASSIUM 4.7 mmol/L (3.5-5.1)
[2016-11-21] MEDS: LANSOPRAZOLE 30 MG CAP GTB SCH (05:37)
[2016-11-21] MEDS: metroNIDAZOLE 500 MG TAB PEG SCH ×3 (05:37→21:36)
[2016-11-21] MEDS: MEROPENEM 500 MG/100 ML (PMX) 100 ML IVPB SCH ×3 (05:38→21:36)
[2016-11-21] MEDS: LEVOTHYROXINE 125 MCG TAB PEG SCH (06:27)
[2016-11-21] MEDS: COLLAGENASE 30 GM TUBE TOP SCH (09:00)
[2016-11-21] MEDS: DIAZEPAM 5 MG TAB PEG SCH (09:22)
[2016-11-21] MEDS: L ACIDOPHIL/B LACTIS/B LONGUM CAPSULE PEG SCH ×2 (09:22→13:12)
[2016-11-21] MEDS: FLUCONAZOLE 100 MG TAB PEG SCH (09:22)
[2016-11-21] MEDS: DULOXETINE 20 MG CAP DR PEG SCH (09:22)
[2016-11-21] MEDS: ASCORBIC ACID 500 MG TAB PEG SCH ×2 (09:22→21:36)
[2016-11-21] MEDS: CROMOLYN 4% 26ML NAS INH NASAL SCH ×3 (09:26→16:44)
[2016-11-21] MEDS: POTASSIUM CHLORIDE 20 MEQ POWDER FOR ORAL SOLN GTB SCH (09:26)
[2016-11-21] MEDS: VANCOMYCIN 750 MG in SOD CHLORIDE 0.9% 150 ML IVPB SCH ×2 (09:40→22:04)
[2016-11-21] MEDS: MIDODRINE 2.5 MG TAB NGT SCH ×3 (10:34→16:38)
--- NOTE | 2016-11-21 11:17 | CONS ---
Date/Time of Note Date/Time of Note DATE: 11/21/16 TIME: 11:14 Assessment/Plan Assessment/Plan Additional Assessment/Plan Assessment and recommendations; 1. Patient admitted for severe sepsis from severe sacral decubitus wound. Currently on appropriate broad-spectrum antibiotic coverage. 2. History of COPD. 3. Chronic malnutrition. 4. Left upper lobe lung malignancy. 5. History of diabetes and hypertension. 6. Hypotension with interval resolution, patient off pressor support. Continue current treatment. Patient can be transferred to the medical floor. Consultation Date/Type/Reason Admit Date/Time Sep 26, 2016 at 20:07 Initial Consult Date 11/14/16 Type of Consultation: Pulmonary/critical care Referring Provider: DRE LOBATO MD 24 HR Interval Summary Free Text/Dictation Patient condition is stable. Patient is maintaining adequate O2 saturations on 35% Ventimask. Remains awake and alert. Complains of chronic generalized pain. Denies any shortness of breath. General exam; elderly woman, awake alert currently in no distress. Exam/Review of Systems Vital Signs Vitals Vital Signs Date Time Temp Pulse Resp B/P Pulse Ox O2 Delivery O2 Flow Rate FiO2 11/21/16 10:40 95 6.0 30 11/21/16 06:00 103 29 104/77 Venturi Mask 11/21/16 04:00 98.0 Intake and Output 11/20/16 11/20/16 11/21/16 15:00 23:00 07:00 Intake Total 1662.49 ml 1325 ml 1265 ml Output Total 810 ml 565 ml 390 ml Balance 852.49 ml 760 ml 875 ml Exam HEENT examination; supple neck, no JVD. No lymphadenopathy. Midline trachea. No thyromegaly. Patient has a multiple carious teeth. Pupils are small bilaterally. Chest examination; diminished but clear vessel. No added sound. S1-S2 audible , no murmurs. Regular rhythm. Abdomen examination; soft, G-tube in place. Nondistended. Nontender. Bowel sounds audible. Extremity exam is; no peripheral edema. Back examination; there is a wound VAC applied at the sacral area. CORPORATE COMMUNICATIONS SPECIALIST examination; no focal deficit. Results Result Diagram: 11/21/16 0345 11/21/16 0345 Results 24 hrs Laboratory Tests Test 11/20/16 21:05 11/21/16 03:45 Vancomycin Level Trough 15.5 White Blood Count 14.9 H Red Blood Count 3.18 L Hemoglobin 8.4 L Hematocrit 28.7 L Mean Corpuscular Volume 90.3 Mean Corpuscular Hemoglobin 26.4 L Mean Corpuscular Hemoglobin Concent 29.3 L Red Cell Distribution Width 17.8 H Platelet Count 450 H Mean Platelet Volume 9.5 Neutrophils % 73.6 Lymphocytes % 10.9 L Monocytes % 11.1 H Eosinophils % 3.2 Basophils % 0.4 Nucleated Red Blood Cells % 0.0 Neutrophils # 11.0 H Lymphocytes # 1.6 Monocytes # 1.7 H Eosinophils # 0.5 Basophils # 0.1 Nucleated Red Blood Cells # 0.0 Sodium Level 133 L Potassium Level 4.7 Chloride Level 96 L Carbon Dioxide Level 33 H Anion Gap 9 Blood Urea Nitrogen 16 Creatinine 0.36 L Glucose Level 123 Calcium Level 8.4 Magnesium Level 2.3 Medications Medications Current Medications Ondansetron HCl (Zofran Inj) 4 mg Q6 PRN IV NAUSEA AND/OR VOMITING; Start 09/26 at 22:30 Collagenase (Santyl) 1 applic DAILY TOP Last administered on 11/20/16 08:58; Admin Dose 1 APPLIC; Start 09/27/16 at 09:00 Collagenase (Santyl) 1 applic PRN PRN TOP SOILED OR DISLODGED DRESSING; Start 09/27/16 at 05:00 Lansoprazole (Prevacid) 30 mg DAILY@06 GTB Last administered on 11/21/16 05:37 ; Admin Dose 30 MG; Start 09/28/16 at 06:00 Cromolyn Sodium (Nasalcrom) 1 spray QID NASAL Last administered on 11/21/16 09: 26; Admin Dose 1 SPRAY; Start 09/29/16 at 11:02 Phenol (Cepastat Lozenge) 1 lozenge Q2H PRN MT SORE THROAT Last administered on 11/02/16 01:02; Admin Dose 1 LOZENGE; Start 10/01/16 at 19:00 IV Flush (NS 10 ml) 10 ml PRN PRN IV IV PROTOCOL Last administered on 11/17/16 03:20; Admin Dose 10 ML; Start 10/02/16 at 19:00 Hydromorphone HCl (Dilaudid) 0.5 mg Q4H PRN IV PAIN Last administered on 16:04; Admin Dose 0.5 MG; Start 10/06/16 at 18:30 Potassium Chloride 20 meq 20 meq DAILY GTB Last administered on 11/21/16 09:26 ; Admin Dose 20 MEQ; Start 10/30/16 at 12:00 Dextrose/Sodium Chloride 1,000 ml @ 75 mls/hr [id number] IV Last administered on 11/21/16 02:03; Admin Dose 75 MLS/HR; Start 11/12/16 at 04:30 Norepinephrine/ Dextrose (Levophed/D5W) 500 ml @ 1.87 mls/hr TITRATE IV Last administered on 11/18/16 09:45; Admin Dose 15 MLS/HR; Start 11/12/16 at 04:30 Metoprolol Tartrate 25 mg 25 mg Q6 PRN GTB For HR > 130 Last administered on 21:09; Admin Dose 25 MG; Start 11/12/16 at 22:30 Meropenem 100 ml @ 200 mls/hr Q8 IVPB Last administered on 11/21/16 05:38; Admin Dose 200 MLS/HR; Start 11/14/16 at 14:00 Vancomycin HCl/ Sodium Chloride (Vancocin/NS) 150 ml @ 75 mls/hr Q12H IVPB Last administered on 11/21/16 09:40; Admin Dose 75 MLS/HR; Start 11/15/16 at 10: 00 Acetaminophen (Tylenol Liquid) 650 mg Q6H PRN PEG PAIN AND OR ELEVATED TEMP Last administered on 11/20/16 10:46; Admin Dose 650 MG; Start 11/16/16 at 20:04 Alprazolam (Xanax) 0.5 mg Q12H PRN PEG ANXIETY Last administered on 11/20/16 05 :30; Admin Dose 0.5 MG; Start 11/16/16 at 20:30 Ascorbic Acid (Vitamin C) 500 mg BID PEG Last administered on 11/21/16 09:22; Admin Dose 500 MG; Start 11/16/16 at 21:00 Atorvastatin Calcium (Lipitor) 20 mg QHS PEG Last administered on 11/20/16 20: 13; Admin Dose 20 MG; Start 11/16/16 at 21:00 Diazepam (Valium) 10 mg DAILY PEG Last administered on 11/21/16 09:22; Admin Dose 10 MG; Start 11/17/16 at 09:00 Duloxetine HCl (Cymbalta) 20 mg DAILY PEG Last administered on 11/21/16 09:22; Admin Dose 20 MG; Start 11/17/16 at 09:00 Fluconazole (Diflucan) 100 mg DAILY PEG Last administered on 11/21/16 09:22; Admin Dose 100 MG; Start 11/17/16 at 09:00 Lactobacillus Acidophilus (Florajen3 Capsule) 1 each TID PEG Last administered on 11/21/16 09:22; Admin Dose 1 EACH; Start 11/16/16 at 21:00 Metronidazole (Flagyl) 500 mg Q8 PEG Last administered on 11/21/16 05:37; Admin Dose 500 MG; Start 11/16/16 at 22:00 Promethazine HCl/ Codeine (Phenergan/ Codeine) 10 ml BID PRN PEG COUGH Last administered on 11/19/16 15:13; Admin Dose 10 ML; Start 11/16/16 at 20:00 Zolpidem Tartrate (Ambien) 5 mg QHS PRN PEG INSOMNIA; Start 11/16/16 at 20:00 Docusate Sodium (Colace Liquid Cup) 100 mg Q12 PRN GTB CONSTIPATION; Start 11/16 at 20:00 Midodrine (Proamatine) 2.5 mg TID@08,12,17 NGT Last administered on 11/21/16 10 :34; Admin Dose 2.5 MG; Start 11/19/16 at 17:00 Oxycodone HCl (Roxicodone) 10 mg Q4H PO Last administered on 11/21/16 09:23; Admin Dose 10 MG; Start 11/20/16 at 17:30 REGINE BUCKLEY Nov 21, 2016 11:17
--- NOTE | 2016-11-21 13:55 | PN ---
DATE: 11/21/2016 INFECTIOUS DISEASE PROGRESS NOTE SUBJECTIVE: No events overnight. The patient is off pressors since yesterday. She is awake, comfo rtable on Ventimask and afebrile. VITAL SIGNS: Temperature 98.5, pulse 107, respirations 30, blood pressure 97/69, saturation 95 on 6 liters. WBC today 14.9, H and H 8.4 and 28.7, platelets 450, no shift. BUN 16, creatinine 0.36. INDWELLINGS: George, PICC line, G tube. ANTIMICROBIALS: 1. Fluconazole. 2. Flagyl. 3. Vancomycin. 4. Merrem. PHYSICAL EXAMINATION: GENERAL: This is a fragile, chronically ill-appearing, cachectic, elderly woman who is awake, in no distress. HEENT: Head atraumatic, normocephalic. Sclerae anicteric. Buccal mucosa dry. NECK: Supple, trachea midline. CHEST: Rise symmetrical. Breath sounds with scattered crackles. HEART: S1, S2. ABDOMEN: Soft, bowel tones present. EXTREMITIES: Without cyanosis. ASSESSMENT: 1. Sepsis with shock, holding off pressors since yesterday. 2. Healthcare-associated pneumonia, possibly aspiration. 3. Acute respiratory failure. 4. Lung cancer. 5. Unstageable sacral decubitus, status post debridement with wound VAC application. 6. History of UTI and Clostridium difficile colitis. 7. Failure to thrive. PLAN: The patient remains stable off pressors. Continue present care, antibiotics. Follow recomme ndations of consultants. Dictated By: RUBIN MAYEN PESTICIDE CONTROL INSPECTOR for JUAN COLLIER/SANDER Conf#: [id number] DID#: [id number]
--- NOTE | 2016-11-21 15:26 | PN ---
DATE: 11/21/2016 SUBJECTIVE: Follow up on 66-year-old female with acute respiratory, failure to thrive, and lung can cer. The patient is currently in ICU. Patient with chronic pain syndrome had a better response to pain with Roxicodone around the clock. The patient was weaned off Levophed drip yesterday at 10:00 a.m. and patient remains hemodynamically stable; however, the blood pressure is borderline, heart ra te is slightly tachycardic; however, improved compared to yesterday. The patient is continued on a face oxygen mask, tolerates G-tube feeding via G-tube. No fever, nausea, vomiting reported per nurs ing. OBJECTIVE: VITAL SIGNS: Temperature is 98.6, pulse is 102, blood pressure 103/73, respiratory rate 27, oxygen saturation 95% on Venturi mask with 30% FIO2. GENERAL: Cachectic female in no acute distress. HEENT: Head is atraumatic, normocephalic. NECK: Supple. LUNGS: Diminished air entry bilaterally. There are no rhonchi, wheezes noted. HEART: Normal S1, S2. No murmurs. Patient is slightly tachycardic. ABDOMEN: Flat, soft. Bowel sounds present. G-tube. SKIN: The patient has multiple decubitus ulcers including bilateral lower extremities and buttocks and patient also has sacral wound with wound VAC. EXTREMITIES: No edema. Pulses equal bilaterally 2+. NEUROLOGIC: Patient is lethargic but easily arousable, follows commands. LABORATORY DATA: CBC: White blood cells 14.9, hemoglobin 8.4, hematocrit 28.7, platelets 240. Raquel eric: Sodium is 133, potassium 4.7, chloride 96, carbon dioxide 33, anion gap 9, BUN 16, creatini ne 0.36, glucose 123, calcium 8.4, magnesium 2.3. ASSESSMENT AND PLAN: 1. Possible septic shock, resolving. Dr. Coleman is following in infectious disease consultation. Continue antibiotics per ID. Okay to transfer patient to continue monitoring on telemetry floor sin ce patient was off pressors for 24 hours. 2. Acute respiratory failure. Continue breathing treatment, oxygen supply supplementation and bron chodilators. Dr. Neri is following in pulmonology consultation. 3. Left lung squamous carcinoma. The patient is not a candidate for chemotherapy. Dr. Calvo i s following in oncology consultation. 4. Chronic obstructive pulmonary disease. Patient with long history of tobacco use. Continue owen thing treatment. 5. Anemia of chronic disease. Continue to monitor hemoglobin and hematocrit. Will transfuse p.r.n . 6. Diagnosis of dysphagia with G-tube. Continue G-tube feeding, monitor residual. Continue aspira tion precautions. 7. Hypothyroidism. Continue Synthroid. 8. Acute on chronic pain. Continue Roxicodone. 9. Failure to thrive. 10. Hyponatremia, multifactorial, Dr. Zapata is following in nephrology consultation. 11. Continue sequential compression device for deep venous thrombosis prophylaxis and Prevacid for peptic ulcer disease prophylaxis. Further recommendations based on clinical course. Plan of care discussed with Dr. Lobato. Dictated By: REBECCA ISLAS [employer] SECOND JOBS for DRE LOBATO MD SR/NTS Conf#: [id number] DID#: [id number]
--- NOTE | 2016-11-21 17:55 | CONS ---
Date/Time of Note Date/Time of Note DATE: 11/21/16 TIME: 17:54 Assessment/Plan Assessment/Plan Chief Complaint/Hosp Course Left lung squamous carcinoma. The patient is not a candidate for chemotherapy. Anemia of chronic disease. post 8 u prbc monitor blood count closely transfuse as needed to keep HB above 8 Acute respiratory insufficiency requiring BiPAP. Acute shock, septic versus hypovolemic. tachycardia with episode of SVT. Chronic obstructive pulmonary disease. Dysphagia with G-tube. Continue current G-tube feeding. Hypothyroidism. Continue Synthroid. Problems: Consultation Date/Type/Reason Admit Date/Time Sep 26, 2016 at 20:07 Initial Consult Date 10/19/16 [facility] Referring Provider: DRE LOBATO MD 24 HR Interval Summary Free Text/Dictation all noted no new events Exam/Review of Systems Vital Signs Vitals Vital Signs Date Time Temp Pulse Resp B/P Pulse Ox O2 Delivery O2 Flow Rate FiO2 11/21/16 17:00 102 26 89/66 95 Venturi Mask 11/21/16 16:00 98.0 11/21/16 10:40 6.0 30 Intake and Output 11/20/16 11/20/16 11/21/16 15:00 23:00 07:00 Intake Total 1662.49 ml 1325 ml 1400 ml Output Total 810 ml 565 ml 515 ml Balance 852.49 ml 760 ml 885 ml Exam GENERAL: Cachectic female in no acute distress. HEENT: Head is atraumatic, normocephalic. NECK: Supple. LUNGS: Diminished air entry bilaterally. There are no rhonchi, wheezes noted. HEART: Normal S1, S2. No murmurs. Patient is slightly tachycardic. ABDOMEN: Flat, soft. Bowel sounds present. G-tube. SKIN: The patient has multiple decubitus ulcers including bilateral lower extremities and buttocks and patient also has sacral wound with wound VAC. EXTREMITIES: No edema. Pulses equal bilaterally 2+. NEUROLOGIC: Patient is lethargic but easily arousable, follows commands. Results Result Diagram: 11/21/16 0345 11/21/16 0345 Results 24 hrs Laboratory Tests Test 11/20/16 21:05 11/21/16 03:45 Vancomycin Level Trough 15.5 White Blood Count 14.9 H Red Blood Count 3.18 L Hemoglobin 8.4 L Hematocrit 28.7 L Mean Corpuscular Volume 90.3 Mean Corpuscular Hemoglobin 26.4 L Mean Corpuscular Hemoglobin Concent 29.3 L Red Cell Distribution Width 17.8 H Platelet Count 450 H Mean Platelet Volume 9.5 Neutrophils % 73.6 Lymphocytes % 10.9 L Monocytes % 11.1 H Eosinophils % 3.2 Basophils % 0.4 Nucleated Red Blood Cells % 0.0 Neutrophils # 11.0 H Lymphocytes # 1.6 Monocytes # 1.7 H Eosinophils # 0.5 Basophils # 0.1 Nucleated Red Blood Cells # 0.0 Sodium Level 133 L Potassium Level 4.7 Chloride Level 96 L Carbon Dioxide Level 33 H Anion Gap 9 Blood Urea Nitrogen 16 Creatinine 0.36 L Glucose Level 123 Calcium Level 8.4 Magnesium Level 2.3 Medications Medications Current Medications Ondansetron HCl (Zofran Inj) 4 mg Q6 PRN IV NAUSEA AND/OR VOMITING; Start 09/26 at 22:30 Collagenase (Santyl) 1 applic DAILY TOP Last administered on 11/20/16 08:58; Admin Dose 1 APPLIC; Start 09/27/16 at 09:00 Collagenase (Santyl) 1 applic PRN PRN TOP SOILED OR DISLODGED DRESSING; Start 09/27/16 at 05:00 Lansoprazole (Prevacid) 30 mg DAILY@06 GTB Last administered on 11/21/16 05:37 ; Admin Dose 30 MG; Start 09/28/16 at 06:00 Cromolyn Sodium (Nasalcrom) 1 spray QID NASAL Last administered on 11/21/16 13: 13; Admin Dose 1 SPRAY; Start 09/29/16 at 11:02 Phenol (Cepastat Lozenge) 1 lozenge Q2H PRN MT SORE THROAT Last administered on 11/02/16 01:02; Admin Dose 1 LOZENGE; Start 10/01/16 at 19:00 IV Flush (NS 10 ml) 10 ml PRN PRN IV IV PROTOCOL Last administered on 11/17/16 03:20; Admin Dose 10 ML; Start 10/02/16 at 19:00 Hydromorphone HCl (Dilaudid) 0.5 mg Q4H PRN IV PAIN Last administered on 16:04; Admin Dose 0.5 MG; Start 10/06/16 at 18:30 Potassium Chloride 20 meq 20 meq DAILY GTB Last administered on 11/21/16 09:26 ; Admin Dose 20 MEQ; Start 10/30/16 at 12:00 Dextrose/Sodium Chloride (D5-1/2ns) 1,000 ml @ 75 mls/hr [id number] IV Last administered on 11/21/16 02:03; Admin Dose 75 MLS/HR; Start 11/12/16 at 04:30 Metoprolol Tartrate 25 mg 25 mg Q6 PRN GTB For HR > 130 Last administered on 21:09; Admin Dose 25 MG; Start 11/12/16 at 22:30 Meropenem 100 ml @ 200 mls/hr Q8 IVPB Last administered on 11/21/16 13:18; Admin Dose 200 MLS/HR; Start 11/14/16 at 14:00 Vancomycin HCl/ Sodium Chloride (Vancocin/NS) 150 ml @ 75 mls/hr Q12H IVPB Last administered on 11/21/16 09:40; Admin Dose 75 MLS/HR; Start 11/15/16 at 10: 00 Acetaminophen (Tylenol Liquid) 650 mg Q6H PRN PEG PAIN AND OR ELEVATED TEMP Last administered on 11/20/16 10:46; Admin Dose 650 MG; Start 11/16/16 at 20:04 Alprazolam (Xanax) 0.5 mg Q12H PRN PEG ANXIETY Last administered on 11/20/16 05 :30; Admin Dose 0.5 MG; Start 11/16/16 at 20:30 Ascorbic Acid (Vitamin C) 500 mg BID PEG Last administered on 11/21/16 09:22; Admin Dose 500 MG; Start 11/16/16 at 21:00 Atorvastatin Calcium (Lipitor) 20 mg QHS PEG Last administered on 11/20/16 20: 13; Admin Dose 20 MG; Start 11/16/16 at 21:00 Diazepam (Valium) 10 mg DAILY PEG Last administered on 11/21/16 09:22; Admin Dose 10 MG; Start 11/17/16 at 09:00 Duloxetine HCl (Cymbalta) 20 mg DAILY PEG Last administered on 11/21/16 09:22; Admin Dose 20 MG; Start 11/17/16 at 09:00 Fluconazole (Diflucan) 100 mg DAILY PEG Last administered on 11/21/16 09:22; Admin Dose 100 MG; Start 11/17/16 at 09:00 Lactobacillus Acidophilus (Florajen3 Capsule) 1 each TID PEG Last administered on 11/21/16 13:12; Admin Dose 1 EACH; Start 11/16/16 at 21:00 Metronidazole (Flagyl) 500 mg Q8 PEG Last administered on 11/21/16 13:12; Admin Dose 500 MG; Start 11/16/16 at 22:00 Promethazine HCl/ Codeine (Phenergan/ Codeine) 10 ml BID PRN PEG COUGH Last administered on 11/19/16 15:13; Admin Dose 10 ML; Start 11/16/16 at 20:00 Zolpidem Tartrate (Ambien) 5 mg QHS PRN PEG INSOMNIA; Start 11/16/16 at 20:00 Docusate Sodium (Colace Liquid Cup) 100 mg Q12 PRN GTB CONSTIPATION; Start 11/16 at 20:00 Midodrine (Proamatine) 2.5 mg TID@08,,17 NGT Last administered on 11/21/16 16 :38; Admin Dose 2.5 MG; Start 11/19/16 at 17:00 Oxycodone HCl (Roxicodone) 10 mg Q4H PO Last administered on 11/21/16 16:36; Admin Dose 10 MG; Start 11/20/16 at 17:30 DYLLAN CARRION MD Nov 21, 2016 17:55
--- NOTE | 2016-11-21 21:27 | CONS ---
Date/Time of Note Date/Time of Note DATE: 11/21/16 TIME: 21:24 Assessment/Plan Assessment/Plan Additional Assessment/Plan 1. Hyponatremia, multifactorial - pt likey has Component of SAIDH causing hypoantreia, due to acute on chronic pain 2. Status post acute kidney injury on chronic kidney disease due to systemic inflammatory response syndrome. now improved 3. Sepsis, 4. History of recurrent polymicrobial urinary tract infections. 5. History of dementia. 6. History of previous cerebrovascular accident. 7. History of chronic obstructive pulmonary disease, recently had acute respiratory failure secondary to chronic obstructive pulmonary disease exacerbation. 8. History of urinary retention with a chronic George catheter in place. 9. Chronic debility with cachexia. 10. Multiple decubitus ulcers with debris. Sacrococcygeal ulcer s/p exc boris . 11. History of degenerative joint disease of spine. 12. History of hypertension and hypertensive heart disease with mild to moderate concentric left ventricular hypertrophy and echocardiogram with diastolic dysfunction stage I.EF normal 13. Hypomagnesemia PLAN: off BIPAP but still on low dose levophed, pulmonary has been following on patient , on Breathign Rx for low oxygen saturation BP still runs on low side s/p Mag replacement yesterday, today normal Na 133 today , K stable, on daily K supplement monitor electrolytes Cr normal will follow up Consultation Date/Type/Reason Admit Date/Time Sep 26, 2016 at 20:07 Type of Consultation: NEPHROLOGY Referring Provider: DRE LOBATO MD 24 HR Interval Summary Free Text/Dictation pt is on high flow oxygen, BP labile, Alert awake, not oriented, getting IVF, Na slowly dropping down Exam/Review of Systems Vital Signs Vitals Vital Signs Date Time Temp Pulse Resp B/P Pulse Ox O2 Delivery O2 Flow Rate FiO2 11/21/16 20:19 15.0 50 11/21/16 20:00 101 25 78/57 97 Venturi Mask 11/21/16 19:00 98.4 Intake and Output 11/20/16 11/20/16 11/21/16 14:59 22:59 06:59 Intake Total 1740.30 ml 1325 ml 1325 ml Output Total 885 ml 555 ml 450 ml Balance 855.30 ml 770 ml 875 ml Results Result Diagram: 11/21/16 0345 11/21/16 0345 Results 24 hrs Laboratory Tests Test 11/21/16 03:45 White Blood Count 14.9 H Red Blood Count 3.18 L Hemoglobin 8.4 L Hematocrit 28.7 L Mean Corpuscular Volume 90.3 Mean Corpuscular Hemoglobin 26.4 L Mean Corpuscular Hemoglobin Concent 29.3 L Red Cell Distribution Width 17.8 H Platelet Count 450 H Mean Platelet Volume 9.5 Neutrophils % 73.6 Lymphocytes % 10.9 L Monocytes % 11.1 H Eosinophils % 3.2 Basophils % 0.4 Nucleated Red Blood Cells % 0.0 Neutrophils # 11.0 H Lymphocytes # 1.6 Monocytes # 1.7 H Eosinophils # 0.5 Basophils # 0.1 Nucleated Red Blood Cells # 0.0 Sodium Level 133 L Potassium Level 4.7 Chloride Level 96 L Carbon Dioxide Level 33 H Anion Gap 9 Blood Urea Nitrogen 16 Creatinine 0.36 L Glucose Level 123 Calcium Level 8.4 Magnesium Level 2.3 Medications Medications Current Medications Ondansetron HCl (Zofran Inj) 4 mg Q6 PRN IV NAUSEA AND/OR VOMITING; Start 09/26 at 22:30 Collagenase (Santyl) 1 applic DAILY TOP Last administered on 11/20/16 08:58; Admin Dose 1 APPLIC; Start 09/27/16 at 09:00 Collagenase (Santyl) 1 applic PRN PRN TOP SOILED OR DISLODGED DRESSING; Start 09/27/16 at 05:00 Lansoprazole (Prevacid) 30 mg DAILY@06 GTB Last administered on 11/21/16 05:37 ; Admin Dose 30 MG; Start 09/28/16 at 06:00 Cromolyn Sodium (Nasalcrom) 1 spray QID NASAL Last administered on 11/21/16 13: 13; Admin Dose 1 SPRAY; Start 09/29/16 at 11:02 Phenol (Cepastat Lozenge) 1 lozenge Q2H PRN MT SORE THROAT Last administered on 11/02/16 01:02; Admin Dose 1 LOZENGE; Start 10/01/16 at 19:00 IV Flush (NS 10 ml) 10 ml PRN PRN IV IV PROTOCOL Last administered on 11/17/16 03:20; Admin Dose 10 ML; Start 10/02/16 at 19:00 Hydromorphone HCl (Dilaudid) 0.5 mg Q4H PRN IV PAIN Last administered on 16:04; Admin Dose 0.5 MG; Start 10/06/16 at 18:30 Potassium Chloride 20 meq 20 meq DAILY GTB Last administered on 11/21/16 09:26 ; Admin Dose 20 MEQ; Start 10/30/16 at 12:00 Dextrose/Sodium Chloride (D5-1/2ns) 1,000 ml @ 75 mls/hr [id number] IV Last administered on 11/21/16 20:21; Admin Dose 75 MLS/HR; Start 11/12/16 at 04:30 Metoprolol Tartrate 25 mg 25 mg Q6 PRN GTB For HR > 130 Last administered on 21:09; Admin Dose 25 MG; Start 11/12/16 at 22:30 Meropenem 100 ml @ 200 mls/hr Q8 IVPB Last administered on 11/21/16 13:18; Admin Dose 200 MLS/HR; Start 11/14/16 at 14:00 Vancomycin HCl/ Sodium Chloride (Vancocin/NS) 150 ml @ 75 mls/hr Q12H IVPB Last administered on 11/21/16 09:40; Admin Dose 75 MLS/HR; Start 11/15/16 at 10: 00 Acetaminophen (Tylenol Liquid) 650 mg Q6H PRN PEG PAIN AND OR ELEVATED TEMP Last administered on 11/20/16 10:46; Admin Dose 650 MG; Start 11/16/16 at 20:04 Alprazolam (Xanax) 0.5 mg Q12H PRN PEG ANXIETY Last administered on 11/20/16 05 :30; Admin Dose 0.5 MG; Start 11/16/16 at 20:30 Ascorbic Acid (Vitamin C) 500 mg BID PEG Last administered on 11/21/16 09:22; Admin Dose 500 MG; Start 11/16/16 at 21:00 Atorvastatin Calcium (Lipitor) 20 mg QHS PEG Last administered on 11/20/16 20: 13; Admin Dose 20 MG; Start 11/16/16 at 21:00 Diazepam (Valium) 10 mg DAILY PEG Last administered on 11/21/16 09:22; Admin Dose 10 MG; Start 11/17/16 at 09:00 Duloxetine HCl (Cymbalta) 20 mg DAILY PEG Last administered on 11/21/16 09:22; Admin Dose 20 MG; Start 11/17/16 at 09:00 Fluconazole (Diflucan) 100 mg DAILY PEG Last administered on 11/21/16 09:22; Admin Dose 100 MG; Start 11/17/16 at 09:00 Lactobacillus Acidophilus (Florajen3 Capsule) 1 each TID PEG Last administered on 11/21/16 13:12; Admin Dose 1 EACH; Start 11/16/16 at 21:00 Metronidazole (Flagyl) 500 mg Q8 PEG Last administered on 11/21/16 13:12; Admin Dose 500 MG; Start 11/16/16 at 22:00 Promethazine HCl/ Codeine (Phenergan/ Codeine) 10 ml BID PRN PEG COUGH Last administered on 11/19/16 15:13; Admin Dose 10 ML; Start 11/16/16 at 20:00 Zolpidem Tartrate (Ambien) 5 mg QHS PRN PEG INSOMNIA; Start 11/16/16 at 20:00 Docusate Sodium (Colace Liquid Cup) 100 mg Q12 PRN GTB CONSTIPATION; Start 11/16 at 20:00 Midodrine (Proamatine) 2.5 mg TID@08,,17 NGT Last administered on 11/21/16 16 :38; Admin Dose 2.5 MG; Start 11/19/16 at 17:00 Oxycodone HCl (Roxicodone) 10 mg Q4H PO Last administered on 11/21/16 16:36; Admin Dose 10 MG; Start 11/20/16 at 17:30 DIONNE SAUCEDA MD Nov 21, 2016 21:26
[2016-11-21] MEDS: ATORVASTATIN 20 MG TAB PEG SCH (21:36)
[2016-11-22] VITALS (21 sets, daily range): BP systolic 75–123; BP diastolic 58–87; PULSE 100–124; RESP 18–35
[2016-11-22] MEDS: L ACIDOPHIL/B LACTIS/B LONGUM CAPSULE PEG SCH ×4 (00:17→22:56)
[2016-11-22] MEDS: CROMOLYN 4% 26ML NAS INH NASAL SCH ×5 (00:18→21:11)
[2016-11-22] MEDS: oxyCODONE 5 MG TAB PO SCH ×6 (04:54→21:11)
[2016-11-22 06:16] LABS: ADD SCAN DIFF NO
[2016-11-22 06:22] LABS: ABNORMAL IP MESSAGE 1; BASOPHIL # 0.1 10^3/ul (0.0-0.1); BASOPHILS % 0.4 % (0.0-2.0); EOSINOPHILS # 0.4 10^3/ul (0.0-0.5); EOSINOPHILS % 2.4 % (0.0-7.0); HEMATOCRIT 27.5 % (37.0-47.0); HEMOGLOBIN 8.1 g/dl (12.0-16.0); LYMPHOCYTES # 1.6 10^3/ul (0.8-2.9); LYMPHOCYTES % 10.2 % (15.0-51.0); MEAN CORPUSCULAR HEMOGLOBIN 26.6 pg (29.0-33.0); MEAN CORPUSCULAR HGB CONC 29.5 g/dl (32.0-37.0); MEAN CORPUSCULAR VOLUME 90.5 fl (82.0-101.0); MONOCYTE # 1.6 10^3/ul (0.3-0.9); NEUTROPHILS % 76.2 % (39.0-77.0); PLATELET COUNT 451 10^3/UL (140-415); RED BLOOD COUNT 3.04 10^6/ul (4.20-5.40); RED CELL DISTRIBUTION WIDTH 17.5 % (11.5-14.5); WHITE BLOOD COUNT 15.7 10^3/ul (4.8-10.8)
[2016-11-22] MEDS: LANSOPRAZOLE 30 MG CAP GTB SCH (06:38)
[2016-11-22] MEDS: LEVOTHYROXINE 125 MCG TAB PEG SCH (06:38)
[2016-11-22] MEDS: MEROPENEM 500 MG/100 ML (PMX) 100 ML IVPB SCH ×3 (06:38→22:17)
[2016-11-22] MEDS: metroNIDAZOLE 500 MG TAB PEG SCH ×3 (06:38→22:22)
[2016-11-22 06:40] LABS: CALCIUM 8.5 mg/dl (8.4-10.2); CREATININE 0.38 mg/dl (0.44-1.00); POTASSIUM 4.8 mmol/L (3.5-5.1)
[2016-11-22] MEDS ORDERED: EPINEPHrine 0.1 MG/ML SYG ONE (07:00)
[2016-11-22] MEDS: DEXTROSE 5%-0.45% NACL 1,000 ML IV SCH ×2 (08:02→17:43)
[2016-11-22] MEDS: DULOXETINE 20 MG CAP DR PEG SCH (09:20)
[2016-11-22] MEDS: DIAZEPAM 5 MG TAB PEG SCH (09:20)
[2016-11-22] MEDS: ASCORBIC ACID 500 MG TAB PEG SCH ×2 (09:20→21:11)
[2016-11-22] MEDS: POTASSIUM CHLORIDE 20 MEQ POWDER FOR ORAL SOLN GTB SCH (09:20)
[2016-11-22] MEDS: FLUCONAZOLE 100 MG TAB PEG SCH (09:21)
[2016-11-22] MEDS: COLLAGENASE 30 GM TUBE TOP SCH (10:20)
[2016-11-22] MEDS: VANCOMYCIN 750 MG in SOD CHLORIDE 0.9% 150 ML IVPB SCH ×2 (10:38→22:56)
[2016-11-22] MEDS: MIDODRINE 2.5 MG TAB NGT SCH ×3 (10:38→17:01)
--- NOTE | 2016-11-22 10:56 | CONS ---
Date/Time of Note Date/Time of Note DATE: 11/22/16 TIME: 10:54 Consultation Date/Type/Reason Admit Date/Time Sep 26, 2016 at 20:07 Initial Consult Date 11/14/16 Type of Consultation: Pulmonary/critical care Referring Provider: DRE LOBATO MD 24 HR Interval Summary Free Text/Dictation Patient condition stable. Remains awake alert. Denies any shortness of breath , but does complain of generalized body pain. General exam; elderly woman, awake alert currently in no distress. Exam/Review of Systems Vital Signs Vitals Vital Signs Date Time Temp Pulse Resp B/P Pulse Ox O2 Delivery O2 Flow Rate FiO2 11/22/16 08:00 110 11/22/16 08:00 98.1 32 94/73 98 Venturi Mask 11/21/16 20:19 15.0 50 Intake and Output 11/21/16 11/21/16 11/22/16 15:00 23:00 07:00 Intake Total 1357.5 ml 905 ml 1180 ml Output Total 825 ml 675 ml 1255 ml Balance 532.5 ml 230 ml -75 ml Exam HEENT examination; supple neck, no JVD. No lymphadenopathy. Midline trachea. No thyromegaly. Patient does have multiple carious teeth. Pupils are small bilaterally. Next Chest examination; diminished breath sounds throughout no added sound. S1-S2 audible, no murmurs. Regular rhythm. Abdomen examination; soft, no organomegaly. Bowel sounds audible. G-tube in place. Sacrum has a wound vacuum in place. Next Extremity examination; no peripheral edema. 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 Results Result Diagram: 11/22/16 0545 11/22/16 0545 Results 24 hrs Laboratory Tests Test 11/22/16 05:45 White Blood Count 15.7 H Red Blood Count 3.04 L Hemoglobin 8.1 L Hematocrit 27.5 L Mean Corpuscular Volume 90.5 Mean Corpuscular Hemoglobin 26.6 L Mean Corpuscular Hemoglobin Concent 29.5 L Red Cell Distribution Width 17.5 H Platelet Count 451 H Mean Platelet Volume 9.0 Neutrophils % 76.2 Lymphocytes % 10.2 L Monocytes % 10.0 Eosinophils % 2.4 Basophils % 0.4 Nucleated Red Blood Cells % 0.0 Neutrophils # 12.0 H Lymphocytes # 1.6 Monocytes # 1.6 H Eosinophils # 0.4 Basophils # 0.1 Nucleated Red Blood Cells # 0.0 Sodium Level 133 L Potassium Level 4.8 Chloride Level 95 L Carbon Dioxide Level 35 H Anion Gap 8 Blood Urea Nitrogen 16 Creatinine 0.38 L Glucose Level 128 Calcium Level 8.5 Medications Medications Current Medications Ondansetron HCl (Zofran Inj) 4 mg Q6 PRN IV NAUSEA AND/OR VOMITING; Start 09/26 at 22:30 Collagenase (Santyl) 1 applic DAILY TOP Last administered on 11/22/16 10:20; Admin Dose 1 APPLIC; Start 09/27/16 at 09:00 Collagenase (Santyl) 1 applic PRN PRN TOP SOILED OR DISLODGED DRESSING; Start 09/27/16 at 05:00 Lansoprazole (Prevacid) 30 mg DAILY@06 GTB Last administered on 11/22/16 06:38 ; Admin Dose 30 MG; Start 09/28/16 at 06:00 Cromolyn Sodium (Nasalcrom) 1 spray QID NASAL Last administered on 11/22/16 09: 22; Admin Dose 1 SPRAY; Start 09/29/16 at 11:02 Phenol (Cepastat Lozenge) 1 lozenge Q2H PRN MT SORE THROAT Last administered on 11/02/16 01:02; Admin Dose 1 LOZENGE; Start 10/01/16 at 19:00 IV Flush (NS 10 ml) 10 ml PRN PRN IV IV PROTOCOL Last administered on 11/17/16 03:20; Admin Dose 10 ML; Start 10/02/16 at 19:00 Hydromorphone HCl (Dilaudid) 0.5 mg Q4H PRN IV PAIN Last administered on 16:04; Admin Dose 0.5 MG; Start 10/06/16 at 18:30 Potassium Chloride 20 meq 20 meq DAILY GTB Last administered on 11/22/16 09:20 ; Admin Dose 20 MEQ; Start 10/30/16 at 12:00 Dextrose/Sodium Chloride (D5-1/2ns) 1,000 ml @ 50 mls/hr Q20H IV Last administered on 11/21/16 20:21; Admin Dose 75 MLS/HR; Start 11/12/16 at 04:30 Metoprolol Tartrate 25 mg 25 mg Q6 PRN GTB For HR > 130 Last administered on 21:09; Admin Dose 25 MG; Start 11/12/16 at 22:30 Meropenem 100 ml @ 200 mls/hr Q8 IVPB Last administered on 11/22/16 06:38; Admin Dose 200 MLS/HR; Start 11/14/16 at 14:00 Vancomycin HCl/ Sodium Chloride (Vancocin/NS) 150 ml @ 75 mls/hr Q12H IVPB Last administered on 11/22/16 10:38; Admin Dose 75 MLS/HR; Start 11/15/16 at 10: 00 Acetaminophen (Tylenol Liquid) 650 mg Q6H PRN PEG PAIN AND OR ELEVATED TEMP Last administered on 11/20/16 10:46; Admin Dose 650 MG; Start 11/16/16 at 20:04 Alprazolam (Xanax) 0.5 mg Q12H PRN PEG ANXIETY Last administered on 11/20/16 05 :30; Admin Dose 0.5 MG; Start 11/16/16 at 20:30 Ascorbic Acid (Vitamin C) 500 mg BID PEG Last administered on 11/22/16 09:20; Admin Dose 500 MG; Start 11/16/16 at 21:00 Atorvastatin Calcium (Lipitor) 20 mg QHS PEG Last administered on 11/21/16 21: 36; Admin Dose 20 MG; Start 11/16/16 at 21:00 Diazepam (Valium) 10 mg DAILY PEG Last administered on 11/22/16 09:20; Admin Dose 10 MG; Start 11/17/16 at 09:00 Duloxetine HCl (Cymbalta) 20 mg DAILY PEG Last administered on 11/22/16 09:20; Admin Dose 20 MG; Start 11/17/16 at 09:00 Fluconazole (Diflucan) 100 mg DAILY PEG Last administered on 11/22/16 09:21; Admin Dose 100 MG; Start 11/17/16 at 09:00 Lactobacillus Acidophilus (Florajen3 Capsule) 1 each TID PEG Last administered on 11/22/16 10:38; Admin Dose 1 EACH; Start 11/16/16 at 21:00 Metronidazole (Flagyl) 500 mg Q8 PEG Last administered on 11/22/16 06:38; Admin Dose 500 MG; Start 11/16/16 at 22:00 Promethazine HCl/ Codeine (Phenergan/ Codeine) 10 ml BID PRN PEG COUGH Last administered on 11/19/16 15:13; Admin Dose 10 ML; Start 11/16/16 at 20:00 Zolpidem Tartrate (Ambien) 5 mg QHS PRN PEG INSOMNIA; Start 11/16/16 at 20:00 Docusate Sodium (Colace Liquid Cup) 100 mg Q12 PRN GTB CONSTIPATION; Start 11/16 at 20:00 Midodrine (Proamatine) 2.5 mg TID@08,12,17 NGT Last administered on 11/22/16 10 :38; Admin Dose 2.5 MG; Start 11/19/16 at 17:00 Oxycodone HCl (Roxicodone) 10 mg Q4H PO Last administered on 11/22/16 09:21; Admin Dose 10 MG; Start 11/20/16 at 17:30 REGINE BUCKLEY Nov 22, 2016 10:56
--- NOTE | 2016-11-22 11:40 | CONS ---
Date/Time of Note Date/Time of Note DATE: 11/21/16 TIME: 13:38 Assessment/Plan Assessment/Plan Additional Assessment/Plan Septic shock Respiratory failure Hypotension Diastolic congestive heart failure Pulmonary hypertension Preserved ejection fraction Tricuspid valve regurgitation Lung cancer SVT -Blood pressure overall remained stable, okay to transfer to telemetry if blood pressure remained stable. Continue midodrine, maintain magnesium above 2.0 and potassium above 4.0 Consultation Date/Type/Reason Admit Date/Time Sep 26, 2016 at 20:07 Type of Consultation: cv Referring Provider: DRE LOBATO MD 24 HR Interval Summary Free Text/Dictation Patient seen and examined. Blood pressure improve, no new cardiac issues as per nursing staff Exam/Review of Systems Vital Signs Vitals Vital Signs Date Time Temp Pulse Resp B/P Pulse Ox O2 Delivery O2 Flow Rate FiO2 11/22/16 08:00 110 11/22/16 08:00 98.1 32 94/73 98 Venturi Mask 11/21/16 20:19 15.0 50 Intake and Output 11/21/16 11/21/16 11/22/16 15:00 23:00 07:00 Intake Total 1357.5 ml 905 ml 1180 ml Output Total 825 ml 675 ml 1255 ml Balance 532.5 ml 230 ml -75 ml Exam Tired, following commands Constitutional: alert, frail Respiratory: other Cardiovascular: other (S1-S2 heard), regular rate and rhythm Gastrointestinal: bowel sounds, non-tender, soft Extremities: edema (Trace) Results Result Diagram: 11/22/16 0545 11/22/16 0545 Results 24 hrs Laboratory Tests Test 11/22/16 05:45 White Blood Count 15.7 H Red Blood Count 3.04 L Hemoglobin 8.1 L Hematocrit 27.5 L Mean Corpuscular Volume 90.5 Mean Corpuscular Hemoglobin 26.6 L Mean Corpuscular Hemoglobin Concent 29.5 L Red Cell Distribution Width 17.5 H Platelet Count 451 H Mean Platelet Volume 9.0 Neutrophils % 76.2 Lymphocytes % 10.2 L Monocytes % 10.0 Eosinophils % 2.4 Basophils % 0.4 Nucleated Red Blood Cells % 0.0 Neutrophils # 12.0 H Lymphocytes # 1.6 Monocytes # 1.6 H Eosinophils # 0.4 Basophils # 0.1 Nucleated Red Blood Cells # 0.0 Sodium Level 133 L Potassium Level 4.8 Chloride Level 95 L Carbon Dioxide Level 35 H Anion Gap 8 Blood Urea Nitrogen 16 Creatinine 0.38 L Glucose Level 128 Calcium Level 8.5 Medications Medications Current Medications Ondansetron HCl (Zofran Inj) 4 mg Q6 PRN IV NAUSEA AND/OR VOMITING; Start 09/26 at 22:30 Collagenase (Santyl) 1 applic DAILY TOP Last administered on 11/22/16 10:20; Admin Dose 1 APPLIC; Start 09/27/16 at 09:00 Collagenase (Santyl) 1 applic PRN PRN TOP SOILED OR DISLODGED DRESSING; Start 09/27/16 at 05:00 Lansoprazole (Prevacid) 30 mg DAILY@06 GTB Last administered on 11/22/16 06:38 ; Admin Dose 30 MG; Start 09/28/16 at 06:00 Cromolyn Sodium (Nasalcrom) 1 spray QID NASAL Last administered on 11/22/16 09: 22; Admin Dose 1 SPRAY; Start 09/29/16 at 11:02 Phenol (Cepastat Lozenge) 1 lozenge Q2H PRN MT SORE THROAT Last administered on 11/02/16 01:02; Admin Dose 1 LOZENGE; Start 10/01/16 at 19:00 IV Flush (NS 10 ml) 10 ml PRN PRN IV IV PROTOCOL Last administered on 11/17/16 03:20; Admin Dose 10 ML; Start 10/02/16 at 19:00 Hydromorphone HCl (Dilaudid) 0.5 mg Q4H PRN IV PAIN Last administered on 16:04; Admin Dose 0.5 MG; Start 10/06/16 at 18:30 Potassium Chloride 20 meq 20 meq DAILY GTB Last administered on 11/22/16 09:20 ; Admin Dose 20 MEQ; Start 10/30/16 at 12:00 Dextrose/Sodium Chloride (D5-1/2ns) 1,000 ml @ 50 mls/hr Q20H IV Last administered on 11/21/16 20:21; Admin Dose 75 MLS/HR; Start 11/12/16 at 04:30 Metoprolol Tartrate 25 mg 25 mg Q6 PRN GTB For HR > 130 Last administered on 21:09; Admin Dose 25 MG; Start 11/12/16 at 22:30 Meropenem 100 ml @ 200 mls/hr Q8 IVPB Last administered on 11/22/16 06:38; Admin Dose 200 MLS/HR; Start 11/14/16 at 14:00 Vancomycin HCl/ Sodium Chloride (Vancocin/NS) 150 ml @ 75 mls/hr Q12H IVPB Last administered on 11/22/16 10:38; Admin Dose 75 MLS/HR; Start 11/15/16 at 10: 00 Acetaminophen (Tylenol Liquid) 650 mg Q6H PRN PEG PAIN AND OR ELEVATED TEMP Last administered on 11/20/16 10:46; Admin Dose 650 MG; Start 11/16/16 at 20:04 Alprazolam (Xanax) 0.5 mg Q12H PRN PEG ANXIETY Last administered on 11/20/16 05 :30; Admin Dose 0.5 MG; Start 11/16/16 at 20:30 Ascorbic Acid (Vitamin C) 500 mg BID PEG Last administered on 11/22/16 09:20; Admin Dose 500 MG; Start 11/16/16 at 21:00 Atorvastatin Calcium (Lipitor) 20 mg QHS PEG Last administered on 11/21/16 21: 36; Admin Dose 20 MG; Start 11/16/16 at 21:00 Diazepam (Valium) 10 mg DAILY PEG Last administered on 11/22/16 09:20; Admin Dose 10 MG; Start 11/17/16 at 09:00 Duloxetine HCl (Cymbalta) 20 mg DAILY PEG Last administered on 11/22/16 09:20; Admin Dose 20 MG; Start 11/17/16 at 09:00 Fluconazole (Diflucan) 100 mg DAILY PEG Last administered on 11/22/16 09:21; Admin Dose 100 MG; Start 11/17/16 at 09:00 Lactobacillus Acidophilus (Florajen3 Capsule) 1 each TID PEG Last administered on 11/22/16 10:38; Admin Dose 1 EACH; Start 11/16/16 at 21:00 Metronidazole (Flagyl) 500 mg Q8 PEG Last administered on 11/22/16 06:38; Admin Dose 500 MG; Start 11/16/16 at 22:00 Promethazine HCl/ Codeine (Phenergan/ Codeine) 10 ml BID PRN PEG COUGH Last administered on 11/19/16 15:13; Admin Dose 10 ML; Start 11/16/16 at 20:00 Zolpidem Tartrate (Ambien) 5 mg QHS PRN PEG INSOMNIA; Start 11/16/16 at 20:00 Docusate Sodium (Colace Liquid Cup) 100 mg Q12 PRN GTB CONSTIPATION; Start 11/16 at 20:00 Midodrine (Proamatine) 2.5 mg TID@08,,17 NGT Last administered on 11/22/16 10 :38; Admin Dose 2.5 MG; Start 11/19/16 at 17:00 Oxycodone HCl (Roxicodone) 10 mg Q4H PO Last administered on 11/22/16 09:21; Admin Dose 10 MG; Start 11/20/16 at 17:30 Artemio Tipton DO Nov 22, 2016 11:40
--- NOTE | 2016-11-22 11:43 | CONS ---
Date/Time of Note Date/Time of Note DATE: 11/22/16 TIME: 11:40 Assessment/Plan Assessment/Plan Additional Assessment/Plan Septic shock Respiratory failure Hypotension Diastolic congestive heart failure Pulmonary hypertension Preserved ejection fraction Tricuspid valve regurgitation Lung cancer SVT -Respiratory status appears more labored. Blood pressure trend overall improved. If no contraindication, would consider decreasing or stopping IV fluids. Consultation Date/Type/Reason Admit Date/Time Sep 26, 2016 at 20:07 Type of Consultation: cv Referring Provider: DRE LOBATO MD 24 HR Interval Summary Free Text/Dictation Patient seen and examined. Awaiting bed on telemetry. No new cardiac issues as per nursing staff Exam/Review of Systems Vital Signs Vitals Vital Signs Date Time Temp Pulse Resp B/P Pulse Ox O2 Delivery O2 Flow Rate FiO2 11/22/16 08:00 110 11/22/16 08:00 98.1 32 94/73 98 Venturi Mask 11/21/16 20:19 15.0 50 Intake and Output 11/21/16 11/21/16 11/22/16 15:00 23:00 07:00 Intake Total 1357.5 ml 905 ml 1180 ml Output Total 825 ml 675 ml 1255 ml Balance 532.5 ml 230 ml -75 ml Exam Appears tired, not consistently following commands, dyspneic Constitutional: frail Head: normocephalic, other (On facemask) Respiratory: other (Coarse breath sounds bilaterally and decreased at the bases , no wheezing) Cardiovascular: other (S1-S2 heard), regular rate and rhythm (Tachycardic) Gastrointestinal: bowel sounds, non-tender, soft Extremities: edema (Trace) Results Result Diagram: 11/22/16 0545 11/22/16 0545 Results 24 hrs Laboratory Tests Test 11/22/16 05:45 White Blood Count 15.7 H Red Blood Count 3.04 L Hemoglobin 8.1 L Hematocrit 27.5 L Mean Corpuscular Volume 90.5 Mean Corpuscular Hemoglobin 26.6 L Mean Corpuscular Hemoglobin Concent 29.5 L Red Cell Distribution Width 17.5 H Platelet Count 451 H Mean Platelet Volume 9.0 Neutrophils % 76.2 Lymphocytes % 10.2 L Monocytes % 10.0 Eosinophils % 2.4 Basophils % 0.4 Nucleated Red Blood Cells % 0.0 Neutrophils # 12.0 H Lymphocytes # 1.6 Monocytes # 1.6 H Eosinophils # 0.4 Basophils # 0.1 Nucleated Red Blood Cells # 0.0 Sodium Level 133 L Potassium Level 4.8 Chloride Level 95 L Carbon Dioxide Level 35 H Anion Gap 8 Blood Urea Nitrogen 16 Creatinine 0.38 L Glucose Level 128 Calcium Level 8.5 Medications Medications Current Medications Ondansetron HCl (Zofran Inj) 4 mg Q6 PRN IV NAUSEA AND/OR VOMITING; Start 09/26 at 22:30 Collagenase (Santyl) 1 applic DAILY TOP Last administered on 11/22/16 10:20; Admin Dose 1 APPLIC; Start 09/27/16 at 09:00 Collagenase (Santyl) 1 applic PRN PRN TOP SOILED OR DISLODGED DRESSING; Start 09/27/16 at 05:00 Lansoprazole (Prevacid) 30 mg DAILY@06 GTB Last administered on 11/22/16 06:38 ; Admin Dose 30 MG; Start 09/28/16 at 06:00 Cromolyn Sodium (Nasalcrom) 1 spray QID NASAL Last administered on 11/22/16 09: 22; Admin Dose 1 SPRAY; Start 09/29/16 at 11:02 Phenol (Cepastat Lozenge) 1 lozenge Q2H PRN MT SORE THROAT Last administered on 11/02/16 01:02; Admin Dose 1 LOZENGE; Start 10/01/16 at 19:00 IV Flush (NS 10 ml) 10 ml PRN PRN IV IV PROTOCOL Last administered on 11/17/16 03:20; Admin Dose 10 ML; Start 10/02/16 at 19:00 Hydromorphone HCl (Dilaudid) 0.5 mg Q4H PRN IV PAIN Last administered on 16:04; Admin Dose 0.5 MG; Start 10/06/16 at 18:30 Potassium Chloride 20 meq 20 meq DAILY GTB Last administered on 11/22/16 09:20 ; Admin Dose 20 MEQ; Start 10/30/16 at 12:00 Dextrose/Sodium Chloride (D5-1/2ns) 1,000 ml @ 50 mls/hr Q20H IV Last administered on 11/21/16 20:21; Admin Dose 75 MLS/HR; Start 11/12/16 at 04:30 Metoprolol Tartrate 25 mg 25 mg Q6 PRN GTB For HR > 130 Last administered on 21:09; Admin Dose 25 MG; Start 11/12/16 at 22:30 Meropenem 100 ml @ 200 mls/hr Q8 IVPB Last administered on 11/22/16 06:38; Admin Dose 200 MLS/HR; Start 11/14/16 at 14:00 Vancomycin HCl/ Sodium Chloride (Vancocin/NS) 150 ml @ 75 mls/hr Q12H IVPB Last administered on 11/22/16 10:38; Admin Dose 75 MLS/HR; Start 11/15/16 at 10: 00 Acetaminophen (Tylenol Liquid) 650 mg Q6H PRN PEG PAIN AND OR ELEVATED TEMP Last administered on 11/20/16 10:46; Admin Dose 650 MG; Start 11/16/16 at 20:04 Alprazolam (Xanax) 0.5 mg Q12H PRN PEG ANXIETY Last administered on 11/20/16 05 :30; Admin Dose 0.5 MG; Start 11/16/16 at 20:30 Ascorbic Acid (Vitamin C) 500 mg BID PEG Last administered on 11/22/16 09:20; Admin Dose 500 MG; Start 11/16/16 at 21:00 Atorvastatin Calcium (Lipitor) 20 mg QHS PEG Last administered on 11/21/16 21: 36; Admin Dose 20 MG; Start 11/16/16 at 21:00 Diazepam (Valium) 10 mg DAILY PEG Last administered on 11/22/16 09:20; Admin Dose 10 MG; Start 11/17/16 at 09:00 Duloxetine HCl (Cymbalta) 20 mg DAILY PEG Last administered on 11/22/16 09:20; Admin Dose 20 MG; Start 11/17/16 at 09:00 Fluconazole (Diflucan) 100 mg DAILY PEG Last administered on 11/22/16 09:21; Admin Dose 100 MG; Start 11/17/16 at 09:00 Lactobacillus Acidophilus (Florajen3 Capsule) 1 each TID PEG Last administered on 11/22/16 10:38; Admin Dose 1 EACH; Start 11/16/16 at 21:00 Metronidazole (Flagyl) 500 mg Q8 PEG Last administered on 11/22/16 06:38; Admin Dose 500 MG; Start 11/16/16 at 22:00 Promethazine HCl/ Codeine (Phenergan/ Codeine) 10 ml BID PRN PEG COUGH Last administered on 11/19/16 15:13; Admin Dose 10 ML; Start 11/16/16 at 20:00 Zolpidem Tartrate (Ambien) 5 mg QHS PRN PEG INSOMNIA; Start 11/16/16 at 20:00 Docusate Sodium (Colace Liquid Cup) 100 mg Q12 PRN GTB CONSTIPATION; Start 11/16 at 20:00 Midodrine (Proamatine) 2.5 mg TID@08,12,17 NGT Last administered on 11/22/16 10 :38; Admin Dose 2.5 MG; Start 11/19/16 at 17:00 Oxycodone HCl (Roxicodone) 10 mg Q4H PO Last administered on 11/22/16 09:21; Admin Dose 10 MG; Start 11/20/16 at 17:30 Artemio Tipton DO Nov 22, 2016 11:43
--- NOTE | 2016-11-22 11:47 | PN ---
Date/Time of Note Date/Time of Note DATE: 11/21/16 TIME: 11:45 Assessment/Plan Lines/Catheters IV Catheter Type (from Nrs): PICC Line George in Place (from Nrs): Yes Assessment/Plan Chief Complaint/Hosp Course 1. Multiple decubitus ulcers with debris. Sacrococcygeal ulcer s/p exc boris . -Offload -Optimize nutrition -Vitamin C -Local care 2. UTI s/p abx 3. 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 Acute on chronic diastolic heart failure -Judicious fluid management -Cardiac optimization 5. Hypertension -Diet and medication control 6. Chronic urinary retention with George 7. Depression. -Medical management 8. Hypothyroidism by history. -Synthroid 9. Anemia of chronic disease in addition to iron deficiency anemia. -Continue iron supplements. -Transfusion when necessary 10. Chronic pain syndrome. Continue pain management. Thank you Late entry 11/21 Problems: Subjective 24 Hr Interval Summary Leukocytosis. Tachyarrhythmia. No fevers, chills, nausea, vomiting, or abdominal pain. No abnormal vaginal discharge. No bloating. No cough, sz, bloating. No robles/dizzy/visual or neuro changes. Exam/Review of Systems Vital Signs Vitals Vital Signs Date Time Temp Pulse Resp B/P Pulse Ox O2 Delivery O2 Flow Rate FiO2 11/22/16 08:00 110 11/22/16 08:00 98.1 32 94/73 98 Venturi Mask 11/21/16 20:19 15.0 50 Intake and Output 11/21/16 11/21/16 11/22/16 15:00 23:00 07:00 Intake Total 1357.5 ml 905 ml 1180 ml Output Total 825 ml 675 ml 1255 ml Balance 532.5 ml 230 ml -75 ml Exam Free Text/Dictation GENERAL: Elderly, cachectic, no acute distress. HEENT: Head is atraumatic, normocephalic. Pupils equal, round, reactive to light and accommodation. Oral mucosa is pink and moist. NECK: Supple, no cervical lymphadenopathy LUNGS: Normal respiratory effort CARDIAC: S1 and S2. Tachy, Irregular ABDOMEN: Flat, soft and nondistended. Nontender. No rebound or guarding. SKIN: Multiple decubitus wounds/ulcers buttock sacrum and right lower extremity EXTREMITIES: No edema. Pulses equal bilaterally, 2+. NEUROLOGICAL: Responsive VASCULAR: Refill is less than 2 seconds Results Result Diagram: 11/22/16 0545 11/22/16 0545 ZAK POSEY MD Nov 22, 2016 11:47
--- NOTE | 2016-11-22 11:49 | PN ---
Date/Time of Note Date/Time of Note DATE: 11/22/16 TIME: 11:48 Assessment/Plan Lines/Catheters IV Catheter Type (from Nrs): PICC Line George in Place (from Nrs): Yes Assessment/Plan Chief Complaint/Hosp Course 1. Multiple decubitus ulcers with debris. Sacrococcygeal ulcer s/p exc boris . -Offload -Optimize nutrition -Vitamin C -Local care 2. UTI s/p abx 3. 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 Acute on chronic diastolic heart failure -Judicious fluid management -Cardiac optimization 5. Hypertension -Diet and medication control 6. Chronic urinary retention with George 7. Depression. -Medical management 8. Hypothyroidism by history. -Synthroid 9. Anemia of chronic disease in addition to iron deficiency anemia. -Continue iron supplements. -Transfusion when necessary 10. Chronic pain syndrome. Continue pain management. Thank you Problems: Subjective 24 Hr Interval Summary Leukocytosis. Tachyarrhythmia persists. No fevers, chills, nausea, vomiting, or abdominal pain. No abnormal vaginal discharge. No bloating. No cough, sz, bloating. No robles/dizzy/visual or neuro changes. Exam/Review of Systems Vital Signs Vitals Vital Signs Date Time Temp Pulse Resp B/P Pulse Ox O2 Delivery O2 Flow Rate FiO2 11/22/16 08:00 110 11/22/16 08:00 98.1 32 94/73 98 Venturi Mask 11/21/16 20:19 15.0 50 Intake and Output 11/21/16 11/21/16 11/22/16 15:00 23:00 07:00 Intake Total 1357.5 ml 905 ml 1180 ml Output Total 825 ml 675 ml 1255 ml Balance 532.5 ml 230 ml -75 ml Exam Free Text/Dictation GENERAL: Elderly, cachectic, no acute distress. HEENT: Head is atraumatic, normocephalic. Pupils equal, round, reactive to light and accommodation. Oral mucosa is pink and moist. NECK: Supple, no cervical lymphadenopathy LUNGS: Normal respiratory effort CARDIAC: S1 and S2. Tachy, Irregular ABDOMEN: Flat, soft and nondistended. Nontender. No rebound or guarding. SKIN: Multiple decubitus wounds/ulcers buttock sacrum and right lower extremity EXTREMITIES: No edema. Pulses equal bilaterally, 2+. NEUROLOGICAL: Responsive VASCULAR: Cap refill 3 seconds Results Result Diagram: 11/22/16 0545 11/22/16 0545 ZAK POSEY MD Nov 22, 2016 11:49
--- NOTE | 2016-11-22 12:11 | CONS ---
Date/Time of Note Date/Time of Note DATE: 11/22/16 TIME: 12:09 Assessment/Plan Assessment/Plan Chief Complaint/Hosp Course SUBJECTIVE: No events overnight. The patient is off pressors, awake, comfortable on Ventimask and afebrile. INDWELLINGS: George, PICC line, G tube. ANTIMICROBIALS: 1. Fluconazole. 2. Flagyl. 3. Vancomycin. 4. Merrem. PHYSICAL EXAMINATION: GENERAL: This is a fragile, chronically ill-appearing, cachectic, elderly woman who is awake, in no distress. HEENT: Head atraumatic, normocephalic. Sclerae anicteric. Buccal mucosa dry. NECK: Supple, trachea midline. CHEST: Rise symmetrical. Breath sounds with scattered crackles. HEART: S1, S2. ABDOMEN: Soft, bowel tones present. EXTREMITIES: Without cyanosis. ASSESSMENT: 1. Sepsis with shock, holding off pressors since yesterday. 2. Healthcare-associated pneumonia, possibly aspiration. 3. Acute respiratory failure. 4. Lung cancer. 5. Unstageable sacral decubitus, status post debridement with wound VAC application. 6. History of UTI and Clostridium difficile colitis. 7. Failure to thrive. PLAN: The patient remains stable off pressors. Continue present care, antibiotics, pending tx to tele. Follow recommendations of consultants. DW staff Problems: Consultation Date/Type/Reason Admit Date/Time Sep 26, 2016 at 20:07 Type of Consultation: ID Referring Provider: DRE LOBATO MD Exam/Review of Systems Vital Signs Vitals Vital Signs Date Time Temp Pulse Resp B/P Pulse Ox O2 Delivery O2 Flow Rate FiO2 11/22/16 11:00 124 19 123/78 100 Venturi Mask 11/22/16 08:00 98.1 11/21/16 20:19 15.0 50 Intake and Output 11/21/16 11/21/16 11/22/16 15:00 23:00 07:00 Intake Total 1357.5 ml 905 ml 1180 ml Output Total 825 ml 675 ml 1255 ml Balance 532.5 ml 230 ml -75 ml Results Result Diagram: 11/22/16 0545 11/22/16 0545 Results 24 hrs Laboratory Tests Test 11/22/16 05:45 White Blood Count 15.7 H Red Blood Count 3.04 L Hemoglobin 8.1 L Hematocrit 27.5 L Mean Corpuscular Volume 90.5 Mean Corpuscular Hemoglobin 26.6 L Mean Corpuscular Hemoglobin Concent 29.5 L Red Cell Distribution Width 17.5 H Platelet Count 451 H Mean Platelet Volume 9.0 Neutrophils % 76.2 Lymphocytes % 10.2 L Monocytes % 10.0 Eosinophils % 2.4 Basophils % 0.4 Nucleated Red Blood Cells % 0.0 Neutrophils # 12.0 H Lymphocytes # 1.6 Monocytes # 1.6 H Eosinophils # 0.4 Basophils # 0.1 Nucleated Red Blood Cells # 0.0 Sodium Level 133 L Potassium Level 4.8 Chloride Level 95 L Carbon Dioxide Level 35 H Anion Gap 8 Blood Urea Nitrogen 16 Creatinine 0.38 L Glucose Level 128 Calcium Level 8.5 Medications Medications Current Medications Ondansetron HCl (Zofran Inj) 4 mg Q6 PRN IV NAUSEA AND/OR VOMITING; Start 09/26 at 22:30 Collagenase (Santyl) 1 applic DAILY TOP Last administered on 11/22/16 10:20; Admin Dose 1 APPLIC; Start 09/27/16 at 09:00 Collagenase (Santyl) 1 applic PRN PRN TOP SOILED OR DISLODGED DRESSING; Start 09/27/16 at 05:00 Lansoprazole (Prevacid) 30 mg DAILY@06 GTB Last administered on 11/22/16 06:38 ; Admin Dose 30 MG; Start 09/28/16 at 06:00 Cromolyn Sodium (Nasalcrom) 1 spray QID NASAL Last administered on 11/22/16 09: 22; Admin Dose 1 SPRAY; Start 09/29/16 at 11:02 Phenol (Cepastat Lozenge) 1 lozenge Q2H PRN MT SORE THROAT Last administered on 11/02/16 01:02; Admin Dose 1 LOZENGE; Start 10/01/16 at 19:00 IV Flush (NS 10 ml) 10 ml PRN PRN IV IV PROTOCOL Last administered on 11/17/16 03:20; Admin Dose 10 ML; Start 10/02/16 at 19:00 Hydromorphone HCl (Dilaudid) 0.5 mg Q4H PRN IV PAIN Last administered on 16:04; Admin Dose 0.5 MG; Start 10/06/16 at 18:30 Potassium Chloride 20 meq 20 meq DAILY GTB Last administered on 11/22/16 09:20 ; Admin Dose 20 MEQ; Start 10/30/16 at 12:00 Dextrose/Sodium Chloride (D5-1/2ns) 1,000 ml @ 50 mls/hr Q20H IV Last administered on 11/21/16 20:21; Admin Dose 75 MLS/HR; Start 11/12/16 at 04:30 Metoprolol Tartrate 25 mg 25 mg Q6 PRN GTB For HR > 130 Last administered on 21:09; Admin Dose 25 MG; Start 11/12/16 at 22:30 Meropenem 100 ml @ 200 mls/hr Q8 IVPB Last administered on 11/22/16 06:38; Admin Dose 200 MLS/HR; Start 11/14/16 at 14:00 Vancomycin HCl/ Sodium Chloride (Vancocin/NS) 150 ml @ 75 mls/hr Q12H IVPB Last administered on 11/22/16 10:38; Admin Dose 75 MLS/HR; Start 11/15/16 at 10: 00 Acetaminophen (Tylenol Liquid) 650 mg Q6H PRN PEG PAIN AND OR ELEVATED TEMP Last administered on 11/20/16 10:46; Admin Dose 650 MG; Start 11/16/16 at 20:04 Alprazolam (Xanax) 0.5 mg Q12H PRN PEG ANXIETY Last administered on 11/20/16 05 :30; Admin Dose 0.5 MG; Start 11/16/16 at 20:30 Ascorbic Acid (Vitamin C) 500 mg BID PEG Last administered on 11/22/16 09:20; Admin Dose 500 MG; Start 11/16/16 at 21:00 Atorvastatin Calcium (Lipitor) 20 mg QHS PEG Last administered on 11/21/16 21: 36; Admin Dose 20 MG; Start 11/16/16 at 21:00 Diazepam (Valium) 10 mg DAILY PEG Last administered on 11/22/16 09:20; Admin Dose 10 MG; Start 11/17/16 at 09:00 Duloxetine HCl (Cymbalta) 20 mg DAILY PEG Last administered on 11/22/16 09:20; Admin Dose 20 MG; Start 11/17/16 at 09:00 Fluconazole (Diflucan) 100 mg DAILY PEG Last administered on 11/22/16 09:21; Admin Dose 100 MG; Start 11/17/16 at 09:00 Lactobacillus Acidophilus (Florajen3 Capsule) 1 each TID PEG Last administered on 11/22/16 10:38; Admin Dose 1 EACH; Start 11/16/16 at 21:00 Metronidazole (Flagyl) 500 mg Q8 PEG Last administered on 11/22/16 06:38; Admin Dose 500 MG; Start 11/16/16 at 22:00 Promethazine HCl/ Codeine (Phenergan/ Codeine) 10 ml BID PRN PEG COUGH Last administered on 11/19/16 15:13; Admin Dose 10 ML; Start 11/16/16 at 20:00 Zolpidem Tartrate (Ambien) 5 mg QHS PRN PEG INSOMNIA; Start 11/16/16 at 20:00 Docusate Sodium (Colace Liquid Cup) 100 mg Q12 PRN GTB CONSTIPATION; Start 11/16 at 20:00 Midodrine (Proamatine) 2.5 mg TID@08,12,17 NGT Last administered on 11/22/16 10 :38; Admin Dose 2.5 MG; Start 11/19/16 at 17:00 Oxycodone HCl (Roxicodone) 10 mg Q4H PO Last administered on 11/22/16 09:21; Admin Dose 10 MG; Start 11/20/16 at 17:30 RUBIN MAYEN NP Nov 22, 2016 12:11
--- NOTE | 2016-11-22 12:40 | PN ---
Date/Time of Note Date/Time of Note DATE: 11/22/16 TIME: 12:34 Assessment/Plan VTE Prophylaxis VTE Prophylaxis Intervention: SCD's Lines/Catheters IV C[facility]ter Type (from [facility]): PICC Line Central line still needed: Yes Urinary Cath still in place: Yes Reason Cath still needed: urinary retention Assessment/Plan Chief Complaint/Hosp Course Patient is off pressors since yesterday, patient is lethargic but easily arousable continues on facemask with adequate oxygen saturation. ASSESSMENT AND PLAN: 1. Possible septic shock, resolving. Dr. Coleman is following in infectious disease consultation. Continue antibiotics per ID. 2. Acute respiratory failure. Continue breathing treatment, oxygen supply supplementation and bronchodilators. Dr. Neri is following in pulmonology consultation. 3. Left lung squamous carcinoma. The patient is not a candidate for chemotherapy. Dr. Calvo is following in oncology consultation. 4. Chronic obstructive pulmonary disease. Patient with long history of tobacco use. Continue breathing treatment. 5. Anemia of chronic disease. Continue to monitor hemoglobin and hematocrit. Will transfuse p.r.n. 6. Diagnosis of dysphagia with G-tube. Continue G-tube feeding, monitor residual. Continue aspiration precautions. 7. Hypothyroidism. Continue Synthroid. 8. Acute on chronic pain. Continue Roxicodone. 9. Failure to thrive. 10. Hyponatremia, multifactorial, Dr. Zapata is following in nephrology consultation. 11. Continue sequential compression device for deep venous thrombosis prophylaxis and Prevacid for peptic ulcer disease prophylaxis. Further recommendations based on clinical course. Plan of care discussed with Dr. Dozier. Problems: Exam/Review of Systems Vital Signs Vitals Vital Signs Date Time Temp Pulse Resp B/P Pulse Ox O2 Delivery O2 Flow Rate FiO2 11/22/16 12:00 108 11/22/16 11:00 19 123/78 100 Venturi Mask 11/22/16 08:00 98.1 11/21/16 20:19 15.0 50 Intake and Output 11/21/16 11/21/16 11/22/16 15:00 23:00 07:00 Intake Total 1357.5 ml 905 ml 1180 ml Output Total 825 ml 675 ml 1255 ml Balance 532.5 ml 230 ml -75 ml Exam Constitutional: alert Head: atraumatic, normocephalic Neck: supple Respiratory: diminished breath sounds, other (Rhonchi bilaterally) Cardiovascular: nl pulses Gastrointestinal: non-tender, other (G-tube), soft Extremities: normal pulses Skin: other (Multiple wounds) Results Result Diagram: 11/22/1645 11/22/16 0545 Results 24 hrs Laboratory Tests Test 11/22/16 05:45 White Blood Count 15.7 H Red Blood Count 3.04 L Hemoglobin 8.1 L Hematocrit 27.5 L Mean Corpuscular Volume 90.5 Mean Corpuscular Hemoglobin 26.6 L Mean Corpuscular Hemoglobin Concent 29.5 L Red Cell Distribution Width 17.5 H Platelet Count 451 H Mean Platelet Volume 9.0 Neutrophils % 76.2 Lymphocytes % 10.2 L Monocytes % 10.0 Eosinophils % 2.4 Basophils % 0.4 Nucleated Red Blood Cells % 0.0 Neutrophils # 12.0 H Lymphocytes # 1.6 Monocytes # 1.6 H Eosinophils # 0.4 Basophils # 0.1 Nucleated Red Blood Cells # 0.0 Sodium Level 133 L Potassium Level 4.8 Chloride Level 95 L Carbon Dioxide Level 35 H Anion Gap 8 Blood Urea Nitrogen 16 Creatinine 0.38 L Glucose Level 128 Calcium Level 8.5 Medications Medications Current Medications Ondansetron HCl (Zofran Inj) 4 mg Q6 PRN IV NAUSEA AND/OR VOMITING; Start 09/26 at 22:30 Collagenase (Santyl) 1 applic DAILY TOP Last administered on 11/22/16 10:20; Admin Dose 1 APPLIC; Start 09/27/16 at 09:00 Collagenase (Santyl) 1 applic PRN PRN TOP SOILED OR DISLODGED DRESSING; Start 09/27/16 at 05:00 Lansoprazole (Prevacid) 30 mg DAILY@06 GTB Last administered on 11/22/16 06:38 ; Admin Dose 30 MG; Start 09/28/16 at 06:00 Cromolyn Sodium (Nasalcrom) 1 spray QID NASAL Last administered on 11/22/16 09: 22; Admin Dose 1 SPRAY; Start 09/29/16 at 11:02 Phenol (Cepastat Lozenge) 1 lozenge Q2H PRN MT SORE THROAT Last administered on 11/02/16 01:02; Admin Dose 1 LOZENGE; Start 10/01/16 at 19:00 IV Flush (NS 10 ml) 10 ml PRN PRN IV IV PROTOCOL Last administered on 11/17/16 03:20; Admin Dose 10 ML; Start 10/02/16 at 19:00 Hydromorphone HCl (Dilaudid) 0.5 mg Q4H PRN IV PAIN Last administered on 16:04; Admin Dose 0.5 MG; Start 10/06/16 at 18:30 Potassium Chloride 20 meq 20 meq DAILY GTB Last administered on 11/22/16 09:20 ; Admin Dose 20 MEQ; Start 10/30/16 at 12:00 Dextrose/Sodium Chloride (D5-1/2ns) 1,000 ml @ 50 mls/hr Q20H IV Last administered on 11/21/16 20:21; Admin Dose 75 MLS/HR; Start 11/12/16 at 04:30 Metoprolol Tartrate 25 mg 25 mg Q6 PRN GTB For HR > 130 Last administered on 21:09; Admin Dose 25 MG; Start 11/12/16 at 22:30 Meropenem 100 ml @ 200 mls/hr Q8 IVPB Last administered on 11/22/16 06:38; Admin Dose 200 MLS/HR; Start 11/14/16 at 14:00 Vancomycin HCl/ Sodium Chloride (Vancocin/NS) 150 ml @ 75 mls/hr Q12H IVPB Last administered on 11/22/16 10:38; Admin Dose 75 MLS/HR; Start 11/15/16 at 10: 00 Acetaminophen (Tylenol Liquid) 650 mg Q6H PRN PEG PAIN AND OR ELEVATED TEMP Last administered on 11/20/16 10:46; Admin Dose 650 MG; Start 11/16/16 at 20:04 Alprazolam (Xanax) 0.5 mg Q12H PRN PEG ANXIETY Last administered on 11/20/16 05 :30; Admin Dose 0.5 MG; Start 11/16/16 at 20:30 Ascorbic Acid (Vitamin C) 500 mg BID PEG Last administered on 11/22/16 09:20; Admin Dose 500 MG; Start 11/16/16 at 21:00 Atorvastatin Calcium (Lipitor) 20 mg QHS PEG Last administered on 11/21/16 21: 36; Admin Dose 20 MG; Start 11/16/16 at 21:00 Diazepam (Valium) 10 mg DAILY PEG Last administered on 11/22/16 09:20; Admin Dose 10 MG; Start 11/17/16 at 09:00 Duloxetine HCl (Cymbalta) 20 mg DAILY PEG Last administered on 11/22/16 09:20; Admin Dose 20 MG; Start 11/17/16 at 09:00 Fluconazole (Diflucan) 100 mg DAILY PEG Last administered on 11/22/16 09:21; Admin Dose 100 MG; Start 11/17/16 at 09:00 Lactobacillus Acidophilus (Florajen3 Capsule) 1 each TID PEG Last administered on 11/22/16 10:38; Admin Dose 1 EACH; Start 11/16/16 at 21:00 Metronidazole (Flagyl) 500 mg Q8 PEG Last administered on 11/22/16 06:38; Admin Dose 500 MG; Start 11/16/16 at 22:00 Promethazine HCl/ Codeine (Phenergan/ Codeine) 10 ml BID PRN PEG COUGH Last administered on 11/19/16 15:13; Admin Dose 10 ML; Start 11/16/16 at 20:00 Zolpidem Tartrate (Ambien) 5 mg QHS PRN PEG INSOMNIA; Start 11/16/16 at 20:00 Docusate Sodium (Colace Liquid Cup) 100 mg Q12 PRN GTB CONSTIPATION; Start 11/16 at 20:00 Midodrine (Proamatine) 2.5 mg TID@08,12,17 NGT Last administered on 11/22/16 10 :38; Admin Dose 2.5 MG; Start 11/19/16 at 17:00 Oxycodone HCl (Roxicodone) 10 mg Q4H PO Last administered on 11/22/16 09:21; Admin Dose 10 MG; Start 11/20/16 at 17:30 REBECCA ISLAS Nov 22, 2016 12:40
--- NOTE | 2016-11-22 16:32 | CONS ---
Date/Time of Note Date/Time of Note DATE: 11/22/16 TIME: 16:30 Assessment/Plan Assessment/Plan Additional Assessment/Plan 1. Hyponatremia, multifactorial - pt likey has Component of SAIDH causing hypoantreia, due to acute on chronic pain 2. Status post acute kidney injury on chronic kidney disease due to systemic inflammatory response syndrome. now improved 3. Sepsis, 4. History of recurrent polymicrobial urinary tract infections. 5. History of dementia. 6. History of previous cerebrovascular accident. 7. History of chronic obstructive pulmonary disease, recently had acute respiratory failure secondary to chronic obstructive pulmonary disease exacerbation. 8. History of urinary retention with a chronic George catheter in place. 9. Chronic debility with cachexia. 10. Multiple decubitus ulcers with debris. Sacrococcygeal ulcer s/p exc boris . 11. History of degenerative joint disease of spine. 12. History of hypertension and hypertensive heart disease with mild to moderate concentric left ventricular hypertrophy and echocardiogram with diastolic dysfunction stage I.EF normal 13. Hypomagnesemia PLAN: off BIPAP but still on low dose levophed, pulmonary has been following on patient , on Breathign Rx for low oxygen saturation BP still runs on low side Na 133 today, K 4.8 monitor electrolytes Cr normal will follow up Consultation Date/Type/Reason Admit Date/Time Sep 26, 2016 at 20:07 Type of Consultation: NEPHROLOGY Referring Provider: DRE LOBATO MD Exam/Review of Systems Vital Signs Vitals Vital Signs Date Time Temp Pulse Resp B/P Pulse Ox O2 Delivery O2 Flow Rate FiO2 11/22/16 16:12 99 15.0 50 11/22/16 16:00 98.2 104 32 92/67 Venturi Mask Intake and Output 11/21/16 11/21/16 11/22/16 15:00 23:00 07:00 Intake Total 1357.5 ml 905 ml 1180 ml Output Total 825 ml 675 ml 1255 ml Balance 532.5 ml 230 ml -75 ml Results Result Diagram: 11/22/16 0545 11/22/16 0545 Results 24 hrs Laboratory Tests Test 11/22/16 05:45 White Blood Count 15.7 H Red Blood Count 3.04 L Hemoglobin 8.1 L Hematocrit 27.5 L Mean Corpuscular Volume 90.5 Mean Corpuscular Hemoglobin 26.6 L Mean Corpuscular Hemoglobin Concent 29.5 L Red Cell Distribution Width 17.5 H Platelet Count 451 H Mean Platelet Volume 9.0 Neutrophils % 76.2 Lymphocytes % 10.2 L Monocytes % 10.0 Eosinophils % 2.4 Basophils % 0.4 Nucleated Red Blood Cells % 0.0 Neutrophils # 12.0 H Lymphocytes # 1.6 Monocytes # 1.6 H Eosinophils # 0.4 Basophils # 0.1 Nucleated Red Blood Cells # 0.0 Sodium Level 133 L Potassium Level 4.8 Chloride Level 95 L Carbon Dioxide Level 35 H Anion Gap 8 Blood Urea Nitrogen 16 Creatinine 0.38 L Glucose Level 128 Calcium Level 8.5 Medications Medications Current Medications Ondansetron HCl (Zofran Inj) 4 mg Q6 PRN IV NAUSEA AND/OR VOMITING; Start 09/26 at 22:30 Collagenase (Santyl) 1 applic DAILY TOP Last administered on 11/22/16 10:20; Admin Dose 1 APPLIC; Start 09/27/16 at 09:00 Collagenase (Santyl) 1 applic PRN PRN TOP SOILED OR DISLODGED DRESSING; Start 09/27/16 at 05:00 Lansoprazole (Prevacid) 30 mg DAILY@06 GTB Last administered on 11/22/16 06:38 ; Admin Dose 30 MG; Start 09/28/16 at 06:00 Cromolyn Sodium (Nasalcrom) 1 spray QID NASAL Last administered on 11/22/16 13: 04; Admin Dose 1 SPRAY; Start 09/29/16 at 11:02 Phenol (Cepastat Lozenge) 1 lozenge Q2H PRN MT SORE THROAT Last administered on 11/02/16 01:02; Admin Dose 1 LOZENGE; Start 10/01/16 at 19:00 IV Flush (NS 10 ml) 10 ml PRN PRN IV IV PROTOCOL Last administered on 11/17/16 03:20; Admin Dose 10 ML; Start 10/02/16 at 19:00 Hydromorphone HCl (Dilaudid) 0.5 mg Q4H PRN IV PAIN Last administered on 16:04; Admin Dose 0.5 MG; Start 10/06/16 at 18:30 Potassium Chloride 20 meq 20 meq DAILY GTB Last administered on 11/22/16 09:20 ; Admin Dose 20 MEQ; Start 10/30/16 at 12:00 Dextrose/Sodium Chloride (D5-1/2ns) 1,000 ml @ 50 mls/hr Q20H IV Last administered on 11/21/16 20:21; Admin Dose 75 MLS/HR; Start 11/12/16 at 04:30 Metoprolol Tartrate 25 mg 25 mg Q6 PRN GTB For HR > 130 Last administered on 21:09; Admin Dose 25 MG; Start 11/12/16 at 22:30 Meropenem 100 ml @ 200 mls/hr Q8 IVPB Last administered on 11/22/16 14:13; Admin Dose 200 MLS/HR; Start 11/14/16 at 14:00 Vancomycin HCl/ Sodium Chloride (Vancocin/NS) 150 ml @ 75 mls/hr Q12H IVPB Last administered on 11/22/16 10:38; Admin Dose 75 MLS/HR; Start 11/15/16 at 10: 00 Acetaminophen (Tylenol Liquid) 650 mg Q6H PRN PEG PAIN AND OR ELEVATED TEMP Last administered on 11/20/16 10:46; Admin Dose 650 MG; Start 11/16/16 at 20:04 Alprazolam (Xanax) 0.5 mg Q12H PRN PEG ANXIETY Last administered on 11/20/16 05 :30; Admin Dose 0.5 MG; Start 11/16/16 at 20:30 Ascorbic Acid (Vitamin C) 500 mg BID PEG Last administered on 11/22/16 09:20; Admin Dose 500 MG; Start 11/16/16 at 21:00 Atorvastatin Calcium (Lipitor) 20 mg QHS PEG Last administered on 11/21/16 21: 36; Admin Dose 20 MG; Start 11/16/16 at 21:00 Diazepam (Valium) 10 mg DAILY PEG Last administered on 11/22/16 09:20; Admin Dose 10 MG; Start 11/17/16 at 09:00 Duloxetine HCl (Cymbalta) 20 mg DAILY PEG Last administered on 11/22/16 09:20; Admin Dose 20 MG; Start 11/17/16 at 09:00 Fluconazole (Diflucan) 100 mg DAILY PEG Last administered on 11/22/16 09:21; Admin Dose 100 MG; Start 11/17/16 at 09:00 Lactobacillus Acidophilus (Florajen3 Capsule) 1 each TID PEG Last administered on 11/22/16 13:03; Admin Dose 1 EACH; Start 11/16/16 at 21:00 Metronidazole (Flagyl) 500 mg Q8 PEG Last administered on 11/22/16 14:12; Admin Dose 500 MG; Start 11/16/16 at 22:00 Promethazine HCl/ Codeine (Phenergan/ Codeine) 10 ml BID PRN PEG COUGH Last administered on 11/19/16 15:13; Admin Dose 10 ML; Start 11/16/16 at 20:00 Zolpidem Tartrate (Ambien) 5 mg QHS PRN PEG INSOMNIA; Start 11/16/16 at 20:00 Docusate Sodium (Colace Liquid Cup) 100 mg Q12 PRN GTB CONSTIPATION; Start 11/16 at 20:00 Midodrine (Proamatine) 2.5 mg TID@08,12,17 NGT Last administered on 11/22/16 13 :03; Admin Dose 2.5 MG; Start 11/19/16 at 17:00 Oxycodone HCl (Roxicodone) 10 mg Q4H PO Last administered on 11/22/16 13:03; Admin Dose 10 MG; Start 11/20/16 at 17:30 DIONNE SAUCEDA MD Nov 22, 2016 16:32
[2016-11-22] MEDS: HYDROmorphONE 1 MG/ML SYG IV PRN (21:12)
[2016-11-22] MEDS: ATORVASTATIN 20 MG TAB PEG SCH (21:12)
--- NOTE | 2016-11-22 21:54 | CONS ---
Date/Time of Note Date/Time of Note DATE: 11/22/16 TIME: 21:54 Assessment/Plan Assessment/Plan Chief Complaint/Hosp Course Left lung squamous carcinoma. The patient is not a candidate for chemotherapy. Anemia of chronic disease. post 8 u prbc monitor blood count closely transfuse as needed to keep HB above 8 Acute respiratory insufficiency requiring BiPAP. Acute shock, septic versus hypovolemic. tachycardia with episode of SVT. Chronic obstructive pulmonary disease. Dysphagia with G-tube. Continue current G-tube feeding. Hypothyroidism. Continue Synthroid. Problems: Consultation Date/Type/Reason Admit Date/Time Sep 26, 2016 at 20:07 Initial Consult Date 10/19/16 [facility] Referring Provider: DRE LOBATO MD 24 HR Interval Summary Free Text/Dictation all noted + mild leukocytosis no bleeding anemia stable Exam/Review of Systems Vital Signs Vitals Vital Signs Date Time Temp Pulse Resp B/P Pulse Ox O2 Delivery O2 Flow Rate FiO2 11/22/16 20:23 15.0 50 11/22/16 20:05 98.2 105 18 108/70 97 11/22/16 18:00 Venturi Mask Intake and Output 11/21/16 11/21/16 11/22/16 15:00 23:00 07:00 Intake Total 1357.5 ml 905 ml 1180 ml Output Total 825 ml 675 ml 1255 ml Balance 532.5 ml 230 ml -75 ml Exam Constitutional: alert Head: atraumatic, normocephalic Neck: supple Respiratory: diminished breath sounds, other (Rhonchi bilaterally) Cardiovascular: nl pulses Gastrointestinal: non-tender, other (G-tube), soft Extremities: normal pulses Skin: other (Multiple wounds) Results Result Diagram: 11/22/16 0545 11/22/16 0545 Results 24 hrs Laboratory Tests Test 11/22/16 05:45 White Blood Count 15.7 H Red Blood Count 3.04 L Hemoglobin 8.1 L Hematocrit 27.5 L Mean Corpuscular Volume 90.5 Mean Corpuscular Hemoglobin 26.6 L Mean Corpuscular Hemoglobin Concent 29.5 L Red Cell Distribution Width 17.5 H Platelet Count 451 H Mean Platelet Volume 9.0 Neutrophils % 76.2 Lymphocytes % 10.2 L Monocytes % 10.0 Eosinophils % 2.4 Basophils % 0.4 Nucleated Red Blood Cells % 0.0 Neutrophils # 12.0 H Lymphocytes # 1.6 Monocytes # 1.6 H Eosinophils # 0.4 Basophils # 0.1 Nucleated Red Blood Cells # 0.0 Sodium Level 133 L Potassium Level 4.8 Chloride Level 95 L Carbon Dioxide Level 35 H Anion Gap 8 Blood Urea Nitrogen 16 Creatinine 0.38 L Glucose Level 128 Calcium Level 8.5 Medications Medications Current Medications Ondansetron HCl (Zofran Inj) 4 mg Q6 PRN IV NAUSEA AND/OR VOMITING; Start 09/26 at 22:30 Collagenase (Santyl) 1 applic DAILY TOP Last administered on 11/22/16 10:20; Admin Dose 1 APPLIC; Start 09/27/16 at 09:00 Collagenase (Santyl) 1 applic PRN PRN TOP SOILED OR DISLODGED DRESSING; Start 09/27/16 at 05:00 Lansoprazole (Prevacid) 30 mg DAILY@06 GTB Last administered on 11/22/16 06:38 ; Admin Dose 30 MG; Start 09/28/16 at 06:00 Cromolyn Sodium (Nasalcrom) 1 spray QID NASAL Last administered on 11/22/16 21: 11; Admin Dose 1 SPRAY; Start 09/29/16 at 11:02 Phenol (Cepastat Lozenge) 1 lozenge Q2H PRN MT SORE THROAT Last administered on 11/02/16 01:02; Admin Dose 1 LOZENGE; Start 10/01/16 at 19:00 IV Flush (NS 10 ml) 10 ml PRN PRN IV IV PROTOCOL Last administered on 11/17/16 03:20; Admin Dose 10 ML; Start 10/02/16 at 19:00 Hydromorphone HCl (Dilaudid) 0.5 mg Q4H PRN IV PAIN Last administered on 21:12; Admin Dose 0.5 MG; Start 10/06/16 at 18:30 Potassium Chloride 20 meq 20 meq DAILY GTB Last administered on 11/22/16 09:20 ; Admin Dose 20 MEQ; Start 10/30/16 at 12:00 Dextrose/Sodium Chloride (D5-1/2ns) 1,000 ml @ 50 mls/hr Q20H IV Last administered on 11/22/16 17:43; Admin Dose 50 MLS/HR; Start 11/12/16 at 04:30 Metoprolol Tartrate 25 mg 25 mg Q6 PRN GTB For HR > 130 Last administered on 21:09; Admin Dose 25 MG; Start 11/12/16 at 22:30 Meropenem 100 ml @ 200 mls/hr Q8 IVPB Last administered on 11/22/16 14:13; Admin Dose 200 MLS/HR; Start 11/14/16 at 14:00 Vancomycin HCl/ Sodium Chloride (Vancocin/NS) 150 ml @ 75 mls/hr Q12H IVPB Last administered on 11/22/16 10:38; Admin Dose 75 MLS/HR; Start 11/15/16 at 10: 00 Acetaminophen (Tylenol Liquid) 650 mg Q6H PRN PEG PAIN AND OR ELEVATED TEMP Last administered on 11/20/16 10:46; Admin Dose 650 MG; Start 11/16/16 at 20:04 Alprazolam (Xanax) 0.5 mg Q12H PRN PEG ANXIETY Last administered on 11/20/16 05 :30; Admin Dose 0.5 MG; Start 11/16/16 at 20:30 Ascorbic Acid (Vitamin C) 500 mg BID PEG Last administered on 11/22/16 21:11; Admin Dose 500 MG; Start 11/16/16 at 21:00 Atorvastatin Calcium (Lipitor) 20 mg QHS PEG Last administered on 11/22/16 21: 12; Admin Dose 20 MG; Start 11/16/16 at 21:00 Diazepam (Valium) 10 mg DAILY PEG Last administered on 11/22/16 09:20; Admin Dose 10 MG; Start 11/17/16 at 09:00 Duloxetine HCl (Cymbalta) 20 mg DAILY PEG Last administered on 11/22/16 09:20; Admin Dose 20 MG; Start 11/17/16 at 09:00 Fluconazole (Diflucan) 100 mg DAILY PEG Last administered on 11/22/16 09:21; Admin Dose 100 MG; Start 11/17/16 at 09:00 Lactobacillus Acidophilus (Florajen3 Capsule) 1 each TID PEG Last administered on 11/22/16 13:03; Admin Dose 1 EACH; Start 11/16/16 at 21:00 Metronidazole (Flagyl) 500 mg Q8 PEG Last administered on 11/22/16 14:12; Admin Dose 500 MG; Start 11/16/16 at 22:00 Promethazine HCl/ Codeine (Phenergan/ Codeine) 10 ml BID PRN PEG COUGH Last administered on 11/19/16 15:13; Admin Dose 10 ML; Start 11/16/16 at 20:00 Zolpidem Tartrate (Ambien) 5 mg QHS PRN PEG INSOMNIA; Start 11/16/16 at 20:00 Docusate Sodium (Colace Liquid Cup) 100 mg Q12 PRN GTB CONSTIPATION; Start 11/16 at 20:00 Midodrine (Proamatine) 2.5 mg TID@08,12,17 NGT Last administered on 11/22/16 17 :01; Admin Dose 2.5 MG; Start 11/19/16 at 17:00 Oxycodone HCl (Roxicodone) 10 mg Q4H PO Last administered on 11/22/16 21:11; Admin Dose 10 MG; Start 11/20/16 at 17:30 DYLLAN CARRION MD Nov 22, 2016 21:54
[2016-11-23] VITALS (87 sets, daily range): BP systolic 70–137; BP diastolic 51–92; PULSE 44–121; RESP 16–25
[2016-11-23] MEDS: oxyCODONE 5 MG TAB PO SCH ×6 (00:32→20:59)
[2016-11-23] MEDS ORDERED: NORepinephrine 8MG/250 ML (PMX 250 ML ONE (03:25)
[2016-11-23] MEDS: DEXTROSE 5%-0.45% NACL 1,000 ML IV SCH (04:02)
--- NOTE | 2016-11-23 04:15 | EN ---
Date/Time of Note Date/Time of Note DATE: 11/23/16 TIME: 04:10 ER Progress Note CODE BLUE The patient is having cardiac arrest. CODE BLUE was activated. When I responded to the floor, CPR was in progress. Dr. Rome was at the bedside The patient was immediately intubated without any difficulty She was in asystole and did receive epinephrine 1 mg IV 2 with return of spontaneous circulation. The code started at 2:38 AM and ended at 2:47 AM Cardiopulmonary Resuscitation by me: See code documentation for specific details. ACLS and BLS were performed with high quality chest compressions and minimal interruptions. Reversible causes were assessed and treated. Endotracheal Intubation by me: Pre assessment performed. See preceding note for details. Pre-oxygenation performed with 100% oxygen RSI: Performed w/o complication or hypoxic events. Medications as ordered. Blade: [place] Scope ET Tube: 7.5cm Depth: 21 cm at the lip Intubation confirmed by colorimetric CO2, equal breath sounds, quiet over the stomach. Chest X-ray 1V is pending and will be reviewed by Dr Rome Diagnostic impression: #1 status post asystole #2 acute respiratory failure Disposition: I now transferred the care back to the hospitalist Dr. Rome who was at the bedside MIKEL GARCIA MD Nov 23, 2016 04:15
[2016-11-23] MEDS: SOD CHLORIDE 0.9% 1,000 ML IV SCH (04:42)
[2016-11-23] MEDS: NORepinephrine 8MG/250 ML (PMX 250 ML IV SCH ×2 (04:44→08:36)
[2016-11-23] MEDS: LANSOPRAZOLE 30 MG CAP GTB SCH (06:04)
[2016-11-23] MEDS: MEROPENEM 500 MG/100 ML (PMX) 100 ML IVPB SCH ×3 (06:04→21:04)
[2016-11-23] MEDS: metroNIDAZOLE 500 MG TAB PEG SCH ×3 (06:04→21:13)
[2016-11-23] MEDS: LEVOTHYROXINE 125 MCG TAB PEG SCH ×2 (07:00→08:20)
[2016-11-23 07:33] LABS: ADD SCAN DIFF NO
[2016-11-23 07:41] LABS: ABNORMAL IP MESSAGE 1; BASOPHIL # 0.1 10^3/ul (0.0-0.1); BASOPHILS % 0.4 % (0.0-2.0); EOSINOPHILS # 0.1 10^3/ul (0.0-0.5); EOSINOPHILS % 0.5 % (0.0-7.0); HEMATOCRIT 28.5 % (37.0-47.0); HEMOGLOBIN 8.5 g/dl (12.0-16.0); LYMPHOCYTES # 1.4 10^3/ul (0.8-2.9); LYMPHOCYTES % 6.3 % (15.0-51.0); MEAN CORPUSCULAR HEMOGLOBIN 27.1 pg (29.0-33.0); MEAN CORPUSCULAR HGB CONC 29.8 g/dl (32.0-37.0); MEAN CORPUSCULAR VOLUME 90.8 fl (82.0-101.0); MEAN PLATELET VOLUME 8.7 fl (7.4-10.4); MONOCYTE # 2.2 10^3/ul (0.3-0.9); NEUTROPHIL # 18.1 10^3/ul (1.6-7.5); NEUTROPHILS % 80.9 % (39.0-77.0); PLATELET COUNT 456 10^3/UL (140-415); RED BLOOD COUNT 3.14 10^6/ul (4.20-5.40); RED CELL DISTRIBUTION WIDTH 17.4 % (11.5-14.5); WHITE BLOOD COUNT 22.4 10^3/ul (4.8-10.8)
[2016-11-23] MEDS: MIDODRINE 2.5 MG TAB NGT SCH ×3 (08:00→17:02)
[2016-11-23 08:12] LABS: CALCIUM 8.8 mg/dl (8.4-10.2); CREATININE 0.49 mg/dl (0.44-1.00)
[2016-11-23] MEDS: COLLAGENASE 30 GM TUBE TOP SCH (08:20)
[2016-11-23] MEDS: FLUCONAZOLE 100 MG TAB PEG SCH (08:20)
[2016-11-23] MEDS: POTASSIUM CHLORIDE 20 MEQ POWDER FOR ORAL SOLN GTB SCH ×2 (08:21→08:23)
[2016-11-23] MEDS: L ACIDOPHIL/B LACTIS/B LONGUM CAPSULE PEG SCH ×3 (08:21→20:58)
[2016-11-23] MEDS: ASCORBIC ACID 500 MG TAB PEG SCH ×2 (08:21→20:58)
[2016-11-23] MEDS: CROMOLYN 4% 26ML NAS INH NASAL SCH ×4 (08:22→20:58)
[2016-11-23] MEDS: DIAZEPAM 5 MG TAB PEG SCH (08:32)
[2016-11-23 08:55] LABS: AADO2 Arterial 336.6 mmHg (7.0-24.0); Allen Test ACCEPTAB; Arterial Base Excess 1.3 mmol/L (-3.0-3); Arterial COHb 0.3 % (0.0-3.0); Arterial Fraction of Oxyhgb 98.7 % (93.0-99.0); Arterial HCO3 28.9 mmol/L (22.0-26.0); Arterial MetHb 0.4 % (0.0-1.5); Arterial Total Hemglobin 10.4 g/dl (12.0-18.0); MODE VENT - AC
--- NOTE | 2016-11-23 09:08 | RADRPT ---
PROCEDURE: XR Chest. CLINICAL INDICATION: Shortness of breath TECHNIQUE: An AP view of the chest was obtained. COMPARISON: Chest x-ray dated 11/15/2016 FINDINGS: The endotracheal tube tip is approximately 3.0 cm above the laura. There is a right upper extremi ty PICC line with tip near the cavoatrial junction. There is prominence of the interstitial markings. There are diffuse left lung and right lower lobe interstitial opacities. No pleural effusion or pneumothorax is seen. The cardiomediastinal silhouet te is mildly enlarged . Calcifications are seen within the aortic arch. The osseous structures dem onstrate senescent changes. IMPRESSION: 1. Increased left lung and right lower lobe interstitial and alveolar opacities when compared to th e prior examination may reflect worsening pulmonary edema or pneumonia. 2. Mild cardiomegaly and aortic atherosclerosis. 3. Tubes and lines, as described above. RPTAT: HH .Maisha Jean MD, MD Date Time Electronically viewed and signed by .Maisha Jean MD, MD on 11/23/2016 09:08 .Indy/
[2016-11-23] MEDS: DULOXETINE 20 MG CAP DR PEG SCH (09:58)
[2016-11-23] MEDS: VANCOMYCIN 750 MG in SOD CHLORIDE 0.9% 150 ML IVPB SCH ×2 (09:59→21:14)
--- NOTE | 2016-11-23 11:18 | CONS ---
Date/Time of Note Date/Time of Note DATE: 11/23/16 TIME: 11:16 Consult Date/Type/Reason Admit Date/Time Sep 26, 2016 at 20:07 Initial Consult Date 11/14/16 Type of Consultation: Pulmonary ICU Ordering Provider: DRE LOBATO MD Subjective Patient had respiratory distress yesterday followed by bradycardia and PEA. Required resuscitation intubation mechanical ventilation. Now she follows simple commands on mechanical ventilation. Objective Vital Signs Date Time Temp Pulse Resp B/P Pulse Ox O2 Delivery O2 Flow Rate FiO2 11/23/16 10:45 95 18 90/65 100 Mechanical Ventilator 11/23/16 07:00 97.0 11/23/16 05:23 40 11/22/16 20:23 15.0 Intake and Output 11/22/16 11/22/16 11/23/16 14:59 22:59 06:59 Intake Total 1360 ml 590 ml 365.625 ml Output Total 1225 ml 425 ml 280 ml Balance 135 ml 165 ml 85.625 ml Exam PHYSICAL EXAMINATION: GENERAL: Chronically ill appearing lady orally intubated on mechanical ventilation VITAL SIGNS: HEENT: Dry mucous membranes. Pupils minimally responsive CARDIAC: S1, S2, no added sounds or murmurs. CHEST: Diminished air entry bilaterally with rales. ABDOMEN: Soft, nontender. No guarding or rebound. EXTREMITIES: No cyanosis, clubbing or edema. NEUROLOGIC: Generalized weakness. Unable to assess. Results/Medications Result Diagram: 11/23/16 0631 11/23/1631 Results 24 hrs Laboratory Tests Test 11/23/16 02:52 11/23/16 03:49 11/23/16 06:31 Bedside Glucose 173 Blood Gas Specimen Source Blood arterial Arterial Blood Date Drawn 11/23/2016 3:45:13 AM Arterial Blood pH (Temp corrected) 7.288 *L Arterial Blood pCO2 (Temp correct) 61.7 H Arterial Blood pO2 (Temp corrected) 314.7 H Arterial Blood HCO3 28.9 H Arterial Blood Base Excess 1.3 Arterial Blood Oxygen Saturation 99.4 H Nader Test ACCEPTAB Arterial Blood Gas Puncture Site Right Radial Arterial Blood Carboxyhemoglobin 0.3 Arterial Blood Methemoglobin 0.4 Blood Gas A-a O2 Differential 336.6 H Oxyhemoglobin Percent 98.7 Total Hemoglobin 10.4 L Blood Gas Temperature 37.0 Blood Gas Respiration Rate 18.0 Blood Gas Actual Respiration Rate 18 Blood Gas Modality VENT - AC FiO2 100.0 Blood Gas Tidal Volume 450.0 Blood Gas Low PEEP Setting 5.0 Blood Gas Critical Value Read Back PADMINI RN Blood Gas Notified Whom MA Blood Gas Notified Time 11/23/2016 4:00:15 AM White Blood Count 22.4 #H Red Blood Count 3.14 L Hemoglobin 8.5 L Hematocrit 28.5 L Mean Corpuscular Volume 90.8 Mean Corpuscular Hemoglobin 27.1 L Mean Corpuscular Hemoglobin Concent 29.8 L Red Cell Distribution Width 17.4 H Platelet Count 456 H Mean Platelet Volume 8.7 Neutrophils % 80.9 H Lymphocytes % 6.3 L Monocytes % 10.0 Eosinophils % 0.5 Basophils % 0.4 Nucleated Red Blood Cells % 0.0 Neutrophils # 18.1 H Lymphocytes # 1.4 Monocytes # 2.2 H Eosinophils # 0.1 Basophils # 0.1 Nucleated Red Blood Cells # 0.0 Sodium Level 133 L Potassium Level 5.0 Chloride Level 96 L Carbon Dioxide Level 33 H Anion Gap 9 Blood Urea Nitrogen 17 Creatinine 0.49 Glucose Level 122 Calcium Level 8.8 Medications Current Medications Ondansetron HCl (Zofran Inj) 4 mg Q6 PRN IV NAUSEA AND/OR VOMITING; Start 09/26 at 22:30 Collagenase (Santyl) 1 applic DAILY TOP Last administered on 11/23/16 08:20; Admin Dose 1 APPLIC; Start 09/27/16 at 09:00 Collagenase (Santyl) 1 applic PRN PRN TOP SOILED OR DISLODGED DRESSING; Start 09/27/16 at 05:00 Lansoprazole (Prevacid) 30 mg DAILY@06 GTB Last administered on 11/23/16 06:04 ; Admin Dose 30 MG; Start 09/28/16 at 06:00 Cromolyn Sodium (Nasalcrom) 1 spray QID NASAL Last administered on 11/23/16 08: 22; Admin Dose 1 SPRAY; Start 09/29/16 at 11:02 Phenol (Cepastat Lozenge) 1 lozenge Q2H PRN MT SORE THROAT Last administered on 11/02/16 01:02; Admin Dose 1 LOZENGE; Start 10/01/16 at 19:00 IV Flush (NS 10 ml) 10 ml PRN PRN IV IV PROTOCOL Last administered on 11/17/16 03:20; Admin Dose 10 ML; Start 10/02/16 at 19:00 Hydromorphone HCl (Dilaudid) 0.5 mg Q4H PRN IV PAIN Last administered on 21:12; Admin Dose 0.5 MG; Start 10/06/16 at 18:30 Potassium Chloride (Potassium Chloride Pwd/Soln) 20 meq DAILY GTB Last administered on 11/22/16 09:20; Admin Dose 20 MEQ; Start 10/30/16 at 12:00 Metoprolol Tartrate 25 mg 25 mg Q6 PRN GTB For HR > 130 Last administered on 21:09; Admin Dose 25 MG; Start 11/12/16 at 22:30 Meropenem 100 ml @ 200 mls/hr Q8 IVPB Last administered on 11/23/16 06:04; Admin Dose 200 MLS/HR; Start 11/14/16 at 14:00 Vancomycin HCl/ Sodium Chloride (Vancocin/NS) 150 ml @ 75 mls/hr Q12H IVPB Last administered on 11/23/16 09:59; Admin Dose 75 MLS/HR; Start 11/15/16 at 10: 00 Acetaminophen (Tylenol Liquid) 650 mg Q6H PRN PEG PAIN AND OR ELEVATED TEMP Last administered on 11/20/16 10:46; Admin Dose 650 MG; Start 11/16/16 at 20:04 Alprazolam (Xanax) 0.5 mg Q12H PRN PEG ANXIETY Last administered on 11/20/16 05 :30; Admin Dose 0.5 MG; Start 11/16/16 at 20:30 Ascorbic Acid (Vitamin C) 500 mg BID PEG Last administered on 11/23/16 08:21; Admin Dose 500 MG; Start 11/16/16 at 21:00 Atorvastatin Calcium (Lipitor) 20 mg QHS PEG Last administered on 11/22/16 21: 12; Admin Dose 20 MG; Start 11/16/16 at 21:00 Diazepam (Valium) 10 mg DAILY PEG Last administered on 11/23/16 08:32; Admin Dose 10 MG; Start 11/17/16 at 09:00 Duloxetine HCl (Cymbalta) 20 mg DAILY PEG Last administered on 11/23/16 09:58; Admin Dose 20 MG; Start 11/17/16 at 09:00 Fluconazole (Diflucan) 100 mg DAILY PEG Last administered on 11/23/16 08:20; Admin Dose 100 MG; Start 11/17/16 at 09:00 Lactobacillus Acidophilus (Florajen3 Capsule) 1 each TID PEG Last administered on 11/23/16 08:21; Admin Dose 1 EACH; Start 11/16/16 at 21:00 Metronidazole (Flagyl) 500 mg Q8 PEG Last administered on 11/23/16 06:04; Admin Dose 500 MG; Start 11/16/16 at 22:00 Promethazine HCl/ Codeine (Phenergan/ Codeine) 10 ml BID PRN PEG COUGH Last administered on 11/19/16 15:13; Admin Dose 10 ML; Start 11/16/16 at 20:00 Zolpidem Tartrate (Ambien) 5 mg QHS PRN PEG INSOMNIA; Start 11/16/16 at 20:00 Docusate Sodium (Colace Liquid Cup) 100 mg Q12 PRN GTB CONSTIPATION; Start 11/16 at 20:00 Midodrine (Proamatine) 2.5 mg TID@08,12,17 NGT Last administered on 11/22/16 17 :01; Admin Dose 2.5 MG; Start 11/19/16 at 17:00 Oxycodone HCl 10 mg 10 mg Q4H PO Last administered on 11/23/16 09:21; Admin Dose 10 MG; Start 11/20/16 at 17:30 Sodium Chloride 1,000 ml @ 50 mls/hr Q20H IV Last administered on 11/23/16 04: 42; Admin Dose 50 MLS/HR; Start 11/23/16 at 04:00 Norepinephrine/ Dextrose (Levophed/D5W) 500 ml @ 1.87 mls/hr TITRATE IV Last administered on 11/23/16 10:18; Admin Dose 20.62 MLS/HR; Start 11/23/16 at 09:00 Assessment/Plan Chief Complaint/Hosp Course Assessment 1. Acute on chronic hypoxemic and hypercapnic respiratory failure now requiring mechanical ventilation 2. Persistent leukocytosis possible pneumonia postobstructive 3. Encephalopathy likely toxic metabolic 4. Status post cardiopulmonary arrest 5. Anemia likely of chronic disease 6. Metastatic lung cancer Plan 1. Continue mechanical ventilation 2. Family conference regarding goals of care given that family have requested all aggressive measures I would pursue tracheostomy and PEG tube placement sooner rather than later this likelihood of patient remaining safely extubated is very small. 3. Continue nasogastric tube feeding 4. DVT and GI prophylaxis Disposition Continue current ICU care Overall prognosis very poor consider palliative care consult Problems: CASSIE VACA MD, [facility] Nov 23, 2016 11:18
--- NOTE | 2016-11-23 12:27 | PN ---
Date/Time of Note Date/Time of Note DATE: 11/23/16 TIME: 12:00 Assessment/Plan Lines/Catheters IV Catheter Type (from [facility]): PICC Line Urinary Cath still in place: Yes Assessment/Plan Assessment/Plan 1. Possible septic shock, resolving. Dr. Coleman is following in infectious disease consultation. Continue antibiotics per ID. 2. Acute respiratory failure. Continue breathing treatment, oxygen supply supplementation and bronchodilators. Dr. Neri is following in pulmonology consultation. 3. Left lung squamous carcinoma. The patient is not a candidate for chemotherapy. Dr. Calvo is following in oncology consultation. 4. Chronic obstructive pulmonary disease. Patient with long history of tobacco use. Continue breathing treatment. 5. Anemia of chronic disease. Continue to monitor hemoglobin and hematocrit. Will transfuse p.r.n. 6. Diagnosis of dysphagia with G-tube. Continue G-tube feeding, monitor residual. Continue aspiration precautions. 7. Hypothyroidism. Continue Synthroid. 8. Acute on chronic pain. Continue Roxicodone. 9. Failure to thrive. 10. Hyponatremia, multifactorial, Dr. Zapata is following in nephrology consultation. 11. Continue sequential compression device for deep venous thrombosis prophylaxis and Prevacid for peptic ulcer disease prophylaxis. Further recommendations based on clinical course. Plan of care discussed with Dr. Dozier. Exam/Review of Systems Vital Signs Vitals Vital Signs Date Time Temp Pulse Resp B/P Pulse Ox O2 Delivery O2 Flow Rate FiO2 11/23/16 11:30 109 18 93/73 100 Mechanical Ventilator 11/23/16 07:00 97.0 11/23/16 05:23 40 11/22/16 20:23 15.0 Intake and Output 11/22/16 11/22/16 11/23/16 15:00 23:00 07:00 Intake Total 1335 ml 480 ml 443.750 ml Output Total 1100 ml 300 ml 340 ml Balance 235 ml 180 ml 103.750 ml Exam Constitutional: alert Respiratory: clear to auscultation, normal air movement Cardiovascular: nl pulses, regular rate and rhythm Gastrointestinal: non-tender, soft Musculoskeletal: muscle weakness, nl extremities to inspection Extremities: normal pulses Skin: other Results Result Diagram: 11/23/16 0631 11/23/16 0631 Results 24 hrs Laboratory Tests Test 11/23/16 02:52 6/8/17 03:49 11/23/16 06:31 Bedside Glucose 173 Blood Gas Specimen Source Blood arterial Arterial Blood Date Drawn 11/23/2016 3:45:13 AM Arterial Blood pH (Temp corrected) 7.288 *L Arterial Blood pCO2 (Temp correct) 61.7 H Arterial Blood pO2 (Temp corrected) 314.7 H Arterial Blood HCO3 28.9 H Arterial Blood Base Excess 1.3 Arterial Blood Oxygen Saturation 99.4 H Nader Test ACCEPTAB Arterial Blood Gas Puncture Site Right Radial Arterial Blood Carboxyhemoglobin 0.3 Arterial Blood Methemoglobin 0.4 Blood Gas A-a O2 Differential 336.6 H Oxyhemoglobin Percent 98.7 Total Hemoglobin 10.4 L Blood Gas Temperature 37.0 Blood Gas Respiration Rate 18.0 Blood Gas Actual Respiration Rate 18 Blood Gas Modality VENT - AC FiO2 100.0 Blood Gas Tidal Volume 450.0 Blood Gas Low PEEP Setting 5.0 Blood Gas Critical Value Read Back AMJOSEFINA RN Blood Gas Notified Whom MA Blood Gas Notified Time 11/23/2016 4:00:15 AM White Blood Count 22.4 #H Red Blood Count 3.14 L Hemoglobin 8.5 L Hematocrit 28.5 L Mean Corpuscular Volume 90.8 Mean Corpuscular Hemoglobin 27.1 L Mean Corpuscular Hemoglobin Concent 29.8 L Red Cell Distribution Width 17.4 H Platelet Count 456 H Mean Platelet Volume 8.7 Neutrophils % 80.9 H Lymphocytes % 6.3 L Monocytes % 10.0 Eosinophils % 0.5 Basophils % 0.4 Nucleated Red Blood Cells % 0.0 Neutrophils # 18.1 H Lymphocytes # 1.4 Monocytes # 2.2 H Eosinophils # 0.1 Basophils # 0.1 Nucleated Red Blood Cells # 0.0 Sodium Level 133 L Potassium Level 5.0 Chloride Level 96 L Carbon Dioxide Level 33 H Anion Gap 9 Blood Urea Nitrogen 17 Creatinine 0.49 Glucose Level 122 Calcium Level 8.8 Medications Medications Current Medications Ondansetron HCl (Zofran Inj) 4 mg Q6 PRN IV NAUSEA AND/OR VOMITING; Start 09/26 at 22:30 Collagenase (Santyl) 1 applic DAILY TOP Last administered on 11/23/16t 08:20; Admin Dose 1 APPLIC; Start 09/27/16 at 09:00 Collagenase (Santyl) 1 applic PRN PRN TOP SOILED OR DISLODGED DRESSING; Start 09/27/16 at 05:00 Lansoprazole (Prevacid) 30 mg DAILY@06 GTB Last administered on 11/23/16 06:04 ; Admin Dose 30 MG; Start 09/28/16 at 06:00 Cromolyn Sodium (Nasalcrom) 1 spray QID NASAL Last administered on 11/23/16 08: 22; Admin Dose 1 SPRAY; Start 09/29/16 at 11:02 Phenol (Cepastat Lozenge) 1 lozenge Q2H PRN MT SORE THROAT Last administered on 11/02/16 01:02; Admin Dose 1 LOZENGE; Start 10/01/16 at 19:00 IV Flush (NS 10 ml) 10 ml PRN PRN IV IV PROTOCOL Last administered on 11/17/16 03:20; Admin Dose 10 ML; Start 10/02/16 at 19:00 Hydromorphone HCl (Dilaudid) 0.5 mg Q4H PRN IV PAIN Last administered on 21:12; Admin Dose 0.5 MG; Start 10/06/16 at 18:30 Potassium Chloride (Potassium Chloride Pwd/Soln) 20 meq DAILY GTB Last administered on 11/22/16 09:20; Admin Dose 20 MEQ; Start 10/30/16 at 12:00 Metoprolol Tartrate 25 mg 25 mg Q6 PRN GTB For HR > 130 Last administered on 21:09; Admin Dose 25 MG; Start 11/12/16 at 22:30 Meropenem 100 ml @ 200 mls/hr Q8 IVPB Last administered on 11/23/16 06:04; Admin Dose 200 MLS/HR; Start 11/14/16 at 14:00 Vancomycin HCl/ Sodium Chloride (Vancocin/NS) 150 ml @ 75 mls/hr Q12H IVPB Last administered on 11/23/16 09:59; Admin Dose 75 MLS/HR; Start 11/15/16 at 10: 00 Acetaminophen (Tylenol Liquid) 650 mg Q6H PRN PEG PAIN AND OR ELEVATED TEMP Last administered on 11/20/16 10:46; Admin Dose 650 MG; Start 11/16/16 at 20:04 Alprazolam (Xanax) 0.5 mg Q12H PRN PEG ANXIETY Last administered on 11/20/16 05 :30; Admin Dose 0.5 MG; Start 11/16/16 at 20:30 Ascorbic Acid (Vitamin C) 500 mg BID PEG Last administered on 11/23/16 08:21; Admin Dose 500 MG; Start 11/16/16 at 21:00 Atorvastatin Calcium (Lipitor) 20 mg QHS PEG Last administered on 11/22/16 21: 12; Admin Dose 20 MG; Start 11/16/16 at 21:00 Diazepam (Valium) 10 mg DAILY PEG Last administered on 11/23/16 08:32; Admin Dose 10 MG; Start 11/17/16 at 09:00 Duloxetine HCl (Cymbalta) 20 mg DAILY PEG Last administered on 11/23/16 09:58; Admin Dose 20 MG; Start 11/17/16 at 09:00 Fluconazole (Diflucan) 100 mg DAILY PEG Last administered on 11/23/16 08:20; Admin Dose 100 MG; Start 11/17/16 at 09:00 Lactobacillus Acidophilus (Florajen3 Capsule) 1 each TID PEG Last administered on 11/23/16 08:21; Admin Dose 1 EACH; Start 11/16/16 at 21:00 Metronidazole (Flagyl) 500 mg Q8 PEG Last administered on 11/23/16 06:04; Admin Dose 500 MG; Start 11/16/16 at 22:00 Promethazine HCl/ Codeine (Phenergan/ Codeine) 10 ml BID PRN PEG COUGH Last administered on 11/19/16 15:13; Admin Dose 10 ML; Start 11/16/16 at 20:00 Zolpidem Tartrate (Ambien) 5 mg QHS PRN PEG INSOMNIA; Start 11/16/16 at 20:00 Docusate Sodium (Colace Liquid Cup) 100 mg Q12 PRN GTB CONSTIPATION; Start 11/16 at 20:00 Midodrine (Proamatine) 2.5 mg TID@08,12,17 NGT Last administered on 11/22/16 17 :01; Admin Dose 2.5 MG; Start 11/19/16 at 17:00 Oxycodone HCl 10 mg 10 mg Q4H PO Last administered on 11/23/16 09:21; Admin Dose 10 MG; Start 11/20/16 at 17:30 Sodium Chloride 1,000 ml @ 50 mls/hr Q20H IV Last administered on 11/23/16 04: 42; Admin Dose 50 MLS/HR; Start 11/23/16 at 04:00 Norepinephrine/ Dextrose (Levophed/D5W) 500 ml @ 1.87 mls/hr TITRATE IV Last administered on 11/23/16 10:18; Admin Dose 20.62 MLS/HR; Start 11/23/16 at 09:00 VIKASH CASTANEDA Nov 23, 2016 12:10
--- NOTE | 2016-11-23 12:34 | PN ---
Date/Time of Note Date/Time of Note DATE: 11/23/16 TIME: 12:29 Assessment/Plan VTE Prophylaxis VTE Prophylaxis Intervention: other Lines/Catheters IV Catheter Type (from [facility]): PICC Line Urinary Cath still in place: Yes Assessment/Plan Assessment/Plan 1. Possible septic shock, resolving. Dr. Coleman is following in infectious disease consultation. Continue antibiotics per ID. 2. Acute respiratory failure. Continue breathing treatment, oxygen supply supplementation and bronchodilators. Dr. Neri is following in pulmonology consultation. 3. Left lung squamous carcinoma. The patient is not a candidate for chemotherapy. Dr. Calvo is following in oncology consultation. 4. Chronic obstructive pulmonary disease. Patient with long history of tobacco use. Continue breathing treatment. 5. Anemia of chronic disease. Continue to monitor hemoglobin and hematocrit. Will transfuse p.r.n. 6. Diagnosis of dysphagia with G-tube. Continue G-tube feeding, monitor residual. Continue aspiration precautions. 7. Hypothyroidism. Continue Synthroid. 8. Acute on chronic pain. Continue Roxicodone. 9. Failure to thrive. 10. Hyponatremia, multifactorial, Dr. Zapata is following in nephrology consultation. 11. Edema- Right hand,Wiley feet - elevate parts - doppler to r/o DVT Continue sequential compression device for deep venous thrombosis prophylaxis and Prevacid for peptic ulcer disease prophylaxis. Further recommendations based on clinical course. Plan of care discussed with Dr. Dozier. Subjective 24 Hr Interval Summary Free Text/Dictation awake. remains intubated, on pressors, sp cardiac arrest last night. follows simple commands, c/o back pain, afebrile, dw staff ENT: no complaints Respiratory: no complaints Cardiovascular: no complaints Gastrointestinal: no complaints Musculoskeletal: back pain Exam/Review of Systems Vital Signs Vitals Vital Signs Date Time Temp Pulse Resp B/P Pulse Ox O2 Delivery O2 Flow Rate FiO2 11/23/16 11:30 109 18 93/73 100 Mechanical Ventilator 11/23/16 07:00 97.0 11/23/16 05:23 40 11/22/16 20:23 15.0 Intake and Output 11/22/16 11/22/16 11/23/16 15:00 23:00 07:00 Intake Total 1335 ml 480 ml 443.750 ml Output Total 1100 ml 300 ml 340 ml Balance 235 ml 180 ml 103.750 ml Exam Constitutional: alert Respiratory: clear to auscultation, normal air movement Cardiovascular: nl pulses, regular rate and rhythm Gastrointestinal: non-tender, other, soft Extremities: edema (Wiley. feet, right hand edema) Results Result Diagram: 11/23/16 0631 11/23/16 0631 Results 24 hrs Laboratory Tests Test 11/23/16 02:52 11/23/16 03:49 11/23/16 06:31 Bedside Glucose 173 Blood Gas Specimen Source Blood arterial Arterial Blood Date Drawn 11/23/2016 3:45:13 AM Arterial Blood pH (Temp corrected) 7.288 *L Arterial Blood pCO2 (Temp correct) 61.7 H Arterial Blood pO2 (Temp corrected) 314.7 H Arterial Blood HCO3 28.9 H Arterial Blood Base Excess 1.3 Arterial Blood Oxygen Saturation 99.4 H Nader Test ACCEPTAB Arterial Blood Gas Puncture Site Right Radial Arterial Blood Carboxyhemoglobin 0.3 Arterial Blood Methemoglobin 0.4 Blood Gas A-a O2 Differential 336.6 H Oxyhemoglobin Percent 98.7 Total Hemoglobin 10.4 L Blood Gas Temperature 37.0 Blood Gas Respiration Rate 18.0 Blood Gas Actual Respiration Rate 18 Blood Gas Modality VENT - AC FiO2 100.0 Blood Gas Tidal Volume 450.0 Blood Gas Low PEEP Setting 5.0 Blood Gas Critical Value Read Back AMJOSEFINA RN Blood Gas Notified Whom MA Blood Gas Notified Time 11/23/2016 4:00:15 AM White Blood Count 22.4 #H Red Blood Count 3.14 L Hemoglobin 8.5 L Hematocrit 28.5 L Mean Corpuscular Volume 90.8 Mean Corpuscular Hemoglobin 27.1 L Mean Corpuscular Hemoglobin Concent 29.8 L Red Cell Distribution Width 17.4 H Platelet Count 456 H Mean Platelet Volume 8.7 Neutrophils % 80.9 H Lymphocytes % 6.3 L Monocytes % 10.0 Eosinophils % 0.5 Basophils % 0.4 Nucleated Red Blood Cells % 0.0 Neutrophils # 18.1 H Lymphocytes # 1.4 Monocytes # 2.2 H Eosinophils # 0.1 Basophils # 0.1 Nucleated Red Blood Cells # 0.0 Sodium Level 133 L Potassium Level 5.0 Chloride Level 96 L Carbon Dioxide Level 33 H Anion Gap 9 Blood Urea Nitrogen 17 Creatinine 0.49 Glucose Level 122 Calcium Level 8.8 Medications Medications Current Medications Ondansetron HCl (Zofran Inj) 4 mg Q6 PRN IV NAUSEA AND/OR VOMITING; Start 09/26 at 22:30 Collagenase (Santyl) 1 applic DAILY TOP Last administered on 11/23/16 08:20; Admin Dose 1 APPLIC; Start 09/27/16 at 09:00 Collagenase (Santyl) 1 applic PRN PRN TOP SOILED OR DISLODGED DRESSING; Start 09/27/16 at 05:00 Lansoprazole (Prevacid) 30 mg DAILY@06 GTB Last administered on 11/23/16 06:04 ; Admin Dose 30 MG; Start 09/28/16 at 06:00 Cromolyn Sodium (Nasalcrom) 1 spray QID NASAL Last administered on 11/23/16 08: 22; Admin Dose 1 SPRAY; Start 09/29/16 at 11:02 Phenol (Cepastat Lozenge) 1 lozenge Q2H PRN MT SORE THROAT Last administered on 11/02/16 01:02; Admin Dose 1 LOZENGE; Start 10/01/16 at 19:00 IV Flush (NS 10 ml) 10 ml PRN PRN IV IV PROTOCOL Last administered on 11/17/16 03:20; Admin Dose 10 ML; Start 10/02/16 at 19:00 Hydromorphone HCl (Dilaudid) 0.5 mg Q4H PRN IV PAIN Last administered on 21:12; Admin Dose 0.5 MG; Start 10/06/16 at 18:30 Potassium Chloride (Potassium Chloride Pwd/Soln) 20 meq DAILY GTB Last administered on 11/22/16 09:20; Admin Dose 20 MEQ; Start 10/30/16 at 12:00 Metoprolol Tartrate 25 mg 25 mg Q6 PRN GTB For HR > 130 Last administered on 21:09; Admin Dose 25 MG; Start 11/12/16 at 22:30 Meropenem 100 ml @ 200 mls/hr Q8 IVPB Last administered on 11/23/16 06:04; Admin Dose 200 MLS/HR; Start 11/14/16 at 14:00 Vancomycin HCl/ Sodium Chloride (Vancocin/NS) 150 ml @ 75 mls/hr Q12H IVPB Last administered on 11/23/16 09:59; Admin Dose 75 MLS/HR; Start 11/15/16 at 10: 00 Acetaminophen (Tylenol Liquid) 650 mg Q6H PRN PEG PAIN AND OR ELEVATED TEMP Last administered on 11/20/16 10:46; Admin Dose 650 MG; Start 11/16/16 at 20:04 Alprazolam (Xanax) 0.5 mg Q12H PRN PEG ANXIETY Last administered on 11/20/16 05 :30; Admin Dose 0.5 MG; Start 11/16/16 at 20:30 Ascorbic Acid (Vitamin C) 500 mg BID PEG Last administered on 11/23/16 08:21; Admin Dose 500 MG; Start 11/16/16 at 21:00 Atorvastatin Calcium (Lipitor) 20 mg QHS PEG Last administered on 11/22/16 21: 12; Admin Dose 20 MG; Start 11/16/16 at 21:00 Diazepam (Valium) 10 mg DAILY PEG Last administered on 11/23/16 08:32; Admin Dose 10 MG; Start 11/17/16 at 09:00 Duloxetine HCl (Cymbalta) 20 mg DAILY PEG Last administered on 11/23/16 09:58; Admin Dose 20 MG; Start 11/17/16 at 09:00 Fluconazole (Diflucan) 100 mg DAILY PEG Last administered on 11/23/16 08:20; Admin Dose 100 MG; Start 11/17/16 at 09:00 Lactobacillus Acidophilus (Florajen3 Capsule) 1 each TID PEG Last administered on 11/23/16 08:21; Admin Dose 1 EACH; Start 11/16/16 at 21:00 Metronidazole (Flagyl) 500 mg Q8 PEG Last administered on 11/23/16 06:04; Admin Dose 500 MG; Start 11/16/16 at 22:00 Promethazine HCl/ Codeine (Phenergan/ Codeine) 10 ml BID PRN PEG COUGH Last administered on 11/19/16 15:13; Admin Dose 10 ML; Start 11/16/16 at 20:00 Zolpidem Tartrate (Ambien) 5 mg QHS PRN PEG INSOMNIA; Start 11/16/16 at 20:00 Docusate Sodium (Colace Liquid Cup) 100 mg Q12 PRN GTB CONSTIPATION; Start 11/16 at 20:00 Midodrine (Proamatine) 2.5 mg TID@08,12,17 NGT Last administered on 11/22/16 17 :01; Admin Dose 2.5 MG; Start 11/19/16 at 17:00 Oxycodone HCl 10 mg 10 mg Q4H PO Last administered on 11/23/16 09:21; Admin Dose 10 MG; Start 11/20/16 at 17:30 Sodium Chloride 1,000 ml @ 50 mls/hr Q20H IV Last administered on 11/23/16 04: 42; Admin Dose 50 MLS/HR; Start 11/23/16 at 04:00 Norepinephrine/ Dextrose (Levophed/D5W) 500 ml @ 1.87 mls/hr TITRATE IV Last administered on 11/23/16 10:18; Admin Dose 20.62 MLS/HR; Start 11/23/16 at 09:00 VIKASH CASTANEDA Nov 23, 2016 12:34
--- NOTE | 2016-11-23 15:29 | CONS ---
Date/Time of Note Date/Time of Note DATE: 11/23/16 TIME: 15:22 Assessment/Plan Assessment/Plan Additional Assessment/Plan Septic shock Respiratory failure Cardiopulmonary Arrest Hypotension Diastolic congestive heart failure Pulmonary hypertension Preserved ejection fraction Tricuspid valve regurgitation Lung cancer SVT -Patient with bradycardia leading to PEA and cardiopulmonary arrest overnight. Currently intubated. Following commands. Vent management as per pulmonary. Consultation Date/Type/Reason Admit Date/Time Sep 26, 2016 at 20:07 Type of Consultation: cv Referring Provider: DRE LOBATO MD 24 HR Interval Summary Free Text/Dictation Patient with worsening respiratory status overnight leading to bradycardia and PA status post intubation. Exam/Review of Systems Vital Signs Vitals Vital Signs Date Time Temp Pulse Resp B/P Pulse Ox O2 Delivery O2 Flow Rate FiO2 11/23/16 15:00 105 18 105/76 99 Mechanical Ventilator 11/23/16 12:00 97.3 11/23/16 11:30 40 11/22/16 20:23 15.0 Intake and Output 11/22/16 11/22/16 11/23/16 15:00 23:00 07:00 Intake Total 1335 ml 480 ml 443.750 ml Output Total 1100 ml 300 ml 340 ml Balance 235 ml 180 ml 103.750 ml Exam intubated Constitutional: alert Head: normocephalic ENMT: intubated Respiratory: other (Coarse breath sounds bilaterally, no wheezing) Cardiovascular: other (S1-S2 heard), regular rate and rhythm Gastrointestinal: bowel sounds, non-tender, soft Extremities: other (no edema) Results Result Diagram: 11/23/16 0631 11/23/16 0631 Results 24 hrs Laboratory Tests Test 11/23/16 02:52 11/23/16 03:49 11/23/16 06:31 Bedside Glucose 173 Blood Gas Specimen Source Blood arterial Arterial Blood Date Drawn 11/23/2016 3:45:13 AM Arterial Blood pH (Temp corrected) 7.288 *L Arterial Blood pCO2 (Temp correct) 61.7 H Arterial Blood pO2 (Temp corrected) 314.7 H Arterial Blood HCO3 28.9 H Arterial Blood Base Excess 1.3 Arterial Blood Oxygen Saturation 99.4 H Nader Test ACCEPTAB Arterial Blood Gas Puncture Site Right Radial Arterial Blood Carboxyhemoglobin 0.3 Arterial Blood Methemoglobin 0.4 Blood Gas A-a O2 Differential 336.6 H Oxyhemoglobin Percent 98.7 Total Hemoglobin 10.4 L Blood Gas Temperature 37.0 Blood Gas Respiration Rate 18.0 Blood Gas Actual Respiration Rate 18 Blood Gas Modality VENT - AC FiO2 100.0 Blood Gas Tidal Volume 450.0 Blood Gas Low PEEP Setting 5.0 Blood Gas Critical Value Read Back AMATHSHEILA RN Blood Gas Notified Whom MA Blood Gas Notified Time 11/23/2016 4:00:15 AM White Blood Count 22.4 #H Red Blood Count 3.14 L Hemoglobin 8.5 L Hematocrit 28.5 L Mean Corpuscular Volume 90.8 Mean Corpuscular Hemoglobin 27.1 L Mean Corpuscular Hemoglobin Concent 29.8 L Red Cell Distribution Width 17.4 H Platelet Count 456 H Mean Platelet Volume 8.7 Neutrophils % 80.9 H Lymphocytes % 6.3 L Monocytes % 10.0 Eosinophils % 0.5 Basophils % 0.4 Nucleated Red Blood Cells % 0.0 Neutrophils # 18.1 H Lymphocytes # 1.4 Monocytes # 2.2 H Eosinophils # 0.1 Basophils # 0.1 Nucleated Red Blood Cells # 0.0 Sodium Level 133 L Potassium Level 5.0 Chloride Level 96 L Carbon Dioxide Level 33 H Anion Gap 9 Blood Urea Nitrogen 17 Creatinine 0.49 Glucose Level 122 Calcium Level 8.8 Medications Medications Current Medications Ondansetron HCl (Zofran Inj) 4 mg Q6 PRN IV NAUSEA AND/OR VOMITING; Start 09/26 at 22:30 Collagenase (Santyl) 1 applic DAILY TOP Last administered on 11/23/16 08:20; Admin Dose 1 APPLIC; Start 09/27/16 at 09:00 Collagenase (Santyl) 1 applic PRN PRN TOP SOILED OR DISLODGED DRESSING; Start 09/27/16 at 05:00 Lansoprazole (Prevacid) 30 mg DAILY@06 GTB Last administered on 11/23/16 06:04 ; Admin Dose 30 MG; Start 09/28/16 at 06:00 Cromolyn Sodium (Nasalcrom) 1 spray QID NASAL Last administered on 11/23/16 12: 20; Admin Dose 1 SPRAY; Start 09/29/16 at 11:02 Phenol (Cepastat Lozenge) 1 lozenge Q2H PRN MT SORE THROAT Last administered on 11/02/16 01:02; Admin Dose 1 LOZENGE; Start 10/01/16 at 19:00 IV Flush (NS 10 ml) 10 ml PRN PRN IV IV PROTOCOL Last administered on 11/17/16 03:20; Admin Dose 10 ML; Start 10/02/16 at 19:00 Hydromorphone HCl (Dilaudid) 0.5 mg Q4H PRN IV PAIN Last administered on 21:12; Admin Dose 0.5 MG; Start 10/06/16 at 18:30 Potassium Chloride (Potassium Chloride Pwd/Soln) 20 meq DAILY GTB Last administered on 11/22/16 09:20; Admin Dose 20 MEQ; Start 10/30/16 at 12:00 Metoprolol Tartrate 25 mg 25 mg Q6 PRN GTB For HR > 130 Last administered on 21:09; Admin Dose 25 MG; Start 11/12/16 at 22:30 Meropenem 100 ml @ 200 mls/hr Q8 IVPB Last administered on 11/23/16 13:41; Admin Dose 200 MLS/HR; Start 11/14/16 at 14:00 Vancomycin HCl/ Sodium Chloride (Vancocin/NS) 150 ml @ 75 mls/hr Q12H IVPB Last administered on 11/23/16 09:59; Admin Dose 75 MLS/HR; Start 11/15/16 at 10: 00 Acetaminophen (Tylenol Liquid) 650 mg Q6H PRN PEG PAIN AND OR ELEVATED TEMP Last administered on 11/20/16 10:46; Admin Dose 650 MG; Start 11/16/16 at 20:04 Alprazolam (Xanax) 0.5 mg Q12H PRN PEG ANXIETY Last administered on 11/20/16 05 :30; Admin Dose 0.5 MG; Start 11/16/16 at 20:30 Ascorbic Acid (Vitamin C) 500 mg BID PEG Last administered on 11/23/16 08:21; Admin Dose 500 MG; Start 11/16/16 at 21:00 Atorvastatin Calcium (Lipitor) 20 mg QHS PEG Last administered on 11/22/16 21: 12; Admin Dose 20 MG; Start 11/16/16 at 21:00 Diazepam (Valium) 10 mg DAILY PEG Last administered on 11/23/16 08:32; Admin Dose 10 MG; Start 11/17/16 at 09:00 Duloxetine HCl (Cymbalta) 20 mg DAILY PEG Last administered on 11/23/16 09:58; Admin Dose 20 MG; Start 11/17/16 at 09:00 Fluconazole (Diflucan) 100 mg DAILY PEG Last administered on 11/23/16 08:20; Admin Dose 100 MG; Start 11/17/16 at 09:00 Lactobacillus Acidophilus (Florajen3 Capsule) 1 each TID PEG Last administered on 11/23/16 12:18; Admin Dose 1 EACH; Start 11/16/16 at 21:00 Metronidazole (Flagyl) 500 mg Q8 PEG Last administered on 11/23/16 13:40; Admin Dose 500 MG; Start 11/16/16 at 22:00 Promethazine HCl/ Codeine (Phenergan/ Codeine) 10 ml BID PRN PEG COUGH Last administered on 11/19/16 15:13; Admin Dose 10 ML; Start 11/16/16 at 20:00 Zolpidem Tartrate (Ambien) 5 mg QHS PRN PEG INSOMNIA; Start 11/16/16 at 20:00 Docusate Sodium (Colace Liquid Cup) 100 mg Q12 PRN GTB CONSTIPATION; Start 11/16 at 20:00 Midodrine (Proamatine) 2.5 mg TID@08,12,17 NGT Last administered on 11/23/16 12 :18; Admin Dose 2.5 MG; Start 11/19/16 at 17:00 Oxycodone HCl 10 mg 10 mg Q4H PO Last administered on 11/23/16 13:41; Admin Dose 10 MG; Start 11/20/16 at 17:30 Sodium Chloride 1,000 ml @ 50 mls/hr Q20H IV Last administered on 11/23/16 04: 42; Admin Dose 50 MLS/HR; Start 11/23/16 at 04:00 Norepinephrine/ Dextrose (Levophed/D5W) 500 ml @ 1.87 mls/hr TITRATE IV Last administered on 11/23/16 10:18; Admin Dose 20.62 MLS/HR; Start 11/23/16 at 09:00 Artemio Tipton DO Nov 23, 2016 15:29
--- NOTE | 2016-11-23 15:39 | RADRPT ---
PROCEDURE: US Lower extremity Venous. CLINICAL INDICATION: Bilateral lower extremity edema TECHNIQUE: Multiple sonographic images of the bilateral lower extremity deep venous system was obt ained utilizing grayscale, color-flow, compressive sonography and doppler imaging with augmentation. The images were reviewed on a PACS workstation. COMPARISON: None. FINDINGS: There is normal compressibility and flow within the bilateral common femoral, femoral , posterior ti bial and popliteal veins. RPTAT: AA IMPRESSION: No sonographic evidence for deep venous thrombosis. .Avelino Almonte MD, MD Date Time Electronically viewed and signed by .Avelino Almonte MD, MD on 11/23/2016 15:39 .S/
--- NOTE | 2016-11-23 15:50 | PN ---
DATE: 11/23/2016 SUBJECTIVE: Patient was transferred to the telemetry yesterday and in 2 hours coded, was intubated, currently in ICU on Levophed drip, hypothermic with a heart rate of 105, respirations 18, blood pressure 105/76, saturation 99% on vent. WBC 22.4, H and H 8.5 and 28.5, platelets 456, neutrophils 80.9. BUN 17 , creatinine 0.49. DIAGNOSTICS: Chest x-ray this morning revealed increased left lung and right lower lobe interstitial opacities. INDWELLINGS: Endotracheal tube, PEG, George, PICC line. ANTIMICROBIALS: 1. The patient remains on broad spectrum coverage with Fluconazole. 2. Flagyl. 3. Vancomycin. 4. Meropenem. PHYSICAL EXAMINATION: GENERAL: Chronically ill-appearing, cachectic, elderly woman who is intubated, in no distress. HEENT: Head atraumatic, normocephalic. Sclerae anicteric. Buccal mucosa dry. NECK: Supple. CHEST: Rise symmetrical. Breath sounds diminished. HEART: S1, S2. ABDOMEN: Soft. Bowel tones hypoactive. EXTREMITIES: No cyanosis. ASSESSMENT: 1. Acute on chronic respiratory failure, status post cardiopulmonary arrest. 2. Pneumonia. 3. Lung cancer. 4. History of Clostridium difficile colitis and recurrent urinary tract infection. 5. Unstageable sacral wound, status post debridement with wound VAC application. PLAN: The patient is hemodynamically unstable, covered with broad spectrum antibiotics. She is being followed by multiple consultants. Prognosis poor. Dictated By: RUBIN MAYEN CLAIM ATTORNEY for DRE COLLIER/SANDER Conf#: [id number] DID#: [id number] MTDD
--- NOTE | 2016-11-23 16:23 | RADRPT ---
PROCEDURE: US upper extremity Venous. CLINICAL INDICATION: Bilateral arm edema and pain TECHNIQUE: Multiple sonographic images of the bilateral upper extremity venous system was obtained utilizing grayscale, color-flow, compressive sonography and doppler imaging with augmentation. The images were reviewed on a PACS workstation. COMPARISON: None. FINDINGS: There is normal compressibility and flow within the bilateral internal jugular vein, subclavian vein , axillary vein, brachial, basilic, cephalic, radial and ulnar veins. There is a right-sided PICC line un place. RPTAT: AA IMPRESSION: No sonographic evidence for venous thrombosis. .Avelino Almonte MD, MD Date Time Electronically viewed and signed by .Avelino Almonte MD, MD on 11/23/2016 16:23 .S/
--- NOTE | 2016-11-23 17:04 | CONS ---
Date/Time of Note Date/Time of Note DATE: 11/23/16 TIME: 16:59 Assessment/Plan Assessment/Plan Additional Assessment/Plan 1. acute on chronic resp failure intubated on ventilator 2. PEA s/p resuscitation 3. Hyponatremia multifactorial 4. Pneumonia. 3. Lung cancer. 4. History of Clostridium difficile colitis and recurrent urinary tract infection. 5. Unstageable sacral wound, status post debridement with wound VAC application. PLAN: conitnue IV abx, ID following Na low, K borderilne high normal makign good urine due to comorbidites poor prognosis will conitnue to follow up on patient and assess her need of Dialysis Consultation Date/Type/Reason Admit Date/Time Sep 26, 2016 at 20:07 Type of Consultation: NEphrology Reason for Consultation hyponatremia Referring Provider: DRE LOBATO MD 24 HR Interval Summary Free Text/Dictation pt had acute resp failure required Intubation, S/p PEA- resuscitated Exam/Review of Systems Vital Signs Vitals Vital Signs Date Time Temp Pulse Resp B/P Pulse Ox O2 Delivery O2 Flow Rate FiO2 11/23/16 16:15 98.8 110 18 103/81 100 Mechanical Ventilator 11/23/16 15:30 40 11/22/16 20:23 15.0 Intake and Output 11/22/16 11/22/16 11/23/16 15:00 23:00 07:00 Intake Total 1335 ml 480 ml 443.750 ml Output Total 1100 ml 300 ml 340 ml Balance 235 ml 180 ml 103.750 ml Exam GENERAL: Chronically ill-appearing, cachectic, elderly woman who is intubated, in no distress. HEENT: Head atraumatic, normocephalic. Sclerae anicteric. Buccal mucosa dry. NECK: Supple. CHEST: Rise symmetrical. Breath sounds diminished. HEART: S1, S2. ABDOMEN: Soft. Bowel tones hypoactive. EXTREMITIES: No cyanosis. Results Result Diagram: 11/23/16 0631 11/23/16630 Results 24 hrs Laboratory Tests Test 11/23/16 02:52 11/23/16 03:49 11/23/16 06:31 Bedside Glucose 173 Blood Gas Specimen Source Blood arterial Arterial Blood Date Drawn 11/23/2016 3:45:13 AM Arterial Blood pH (Temp corrected) 7.288 *L Arterial Blood pCO2 (Temp correct) 61.7 H Arterial Blood pO2 (Temp corrected) 314.7 H Arterial Blood HCO3 28.9 H Arterial Blood Base Excess 1.3 Arterial Blood Oxygen Saturation 99.4 H Nader Test ACCEPTAB Arterial Blood Gas Puncture Site Right Radial Arterial Blood Carboxyhemoglobin 0.3 Arterial Blood Methemoglobin 0.4 Blood Gas A-a O2 Differential 336.6 H Oxyhemoglobin Percent 98.7 Total Hemoglobin 10.4 L Blood Gas Temperature 37.0 Blood Gas Respiration Rate 18.0 Blood Gas Actual Respiration Rate 18 Blood Gas Modality VENT - AC FiO2 100.0 Blood Gas Tidal Volume 450.0 Blood Gas Low PEEP Setting 5.0 Blood Gas Critical Value Read Back AMATHEWS RN Blood Gas Notified Whom MA Blood Gas Notified Time 11/23/2016 4:00:15 AM White Blood Count 22.4 #H Red Blood Count 3.14 L Hemoglobin 8.5 L Hematocrit 28.5 L Mean Corpuscular Volume 90.8 Mean Corpuscular Hemoglobin 27.1 L Mean Corpuscular Hemoglobin Concent 29.8 L Red Cell Distribution Width 17.4 H Platelet Count 456 H Mean Platelet Volume 8.7 Neutrophils % 80.9 H Lymphocytes % 6.3 L Monocytes % 10.0 Eosinophils % 0.5 Basophils % 0.4 Nucleated Red Blood Cells % 0.0 Neutrophils # 18.1 H Lymphocytes # 1.4 Monocytes # 2.2 H Eosinophils # 0.1 Basophils # 0.1 Nucleated Red Blood Cells # 0.0 Sodium Level 133 L Potassium Level 5.0 Chloride Level 96 L Carbon Dioxide Level 33 H Anion Gap 9 Blood Urea Nitrogen 17 Creatinine 0.49 Glucose Level 122 Calcium Level 8.8 Medications Medications Current Medications Ondansetron HCl (Zofran Inj) 4 mg Q6 PRN IV NAUSEA AND/OR VOMITING; Start 09/26 at 22:30 Collagenase (Santyl) 1 applic DAILY TOP Last administered on 11/23/16 08:20; Admin Dose 1 APPLIC; Start 09/27/16 at 09:00 Collagenase (Santyl) 1 applic PRN PRN TOP SOILED OR DISLODGED DRESSING; Start 09/27/16 at 05:00 Lansoprazole (Prevacid) 30 mg DAILY@06 GTB Last administered on 11/23/16 06:04 ; Admin Dose 30 MG; Start 09/28/16 at 06:00 Cromolyn Sodium (Nasalcrom) 1 spray QID NASAL Last administered on 11/23/16 12: 20; Admin Dose 1 SPRAY; Start 09/29/16 at 11:02 Phenol (Cepastat Lozenge) 1 lozenge Q2H PRN MT SORE THROAT Last administered on 11/02/16 01:02; Admin Dose 1 LOZENGE; Start 10/01/16 at 19:00 IV Flush (NS 10 ml) 10 ml PRN PRN IV IV PROTOCOL Last administered on 11/17/16 03:20; Admin Dose 10 ML; Start 10/02/16 at 19:00 Hydromorphone HCl (Dilaudid) 0.5 mg Q4H PRN IV PAIN Last administered on 21:12; Admin Dose 0.5 MG; Start 10/06/16 at 18:30 Potassium Chloride (Potassium Chloride Pwd/Soln) 20 meq DAILY GTB Last administered on 11/22/16 09:20; Admin Dose 20 MEQ; Start 10/30/16 at 12:00 Metoprolol Tartrate 25 mg 25 mg Q6 PRN GTB For HR > 130 Last administered on 21:09; Admin Dose 25 MG; Start 11/12/16 at 22:30 Meropenem 100 ml @ 200 mls/hr Q8 IVPB Last administered on 11/23/16 13:41; Admin Dose 200 MLS/HR; Start 11/14/16 at 14:00 Vancomycin HCl/ Sodium Chloride (Vancocin/NS) 150 ml @ 75 mls/hr Q12H IVPB Last administered on 11/23/16 09:59; Admin Dose 75 MLS/HR; Start 11/15/16 at 10: 00 Acetaminophen (Tylenol Liquid) 650 mg Q6H PRN PEG PAIN AND OR ELEVATED TEMP Last administered on 11/20/16 10:46; Admin Dose 650 MG; Start 11/16/16 at 20:04 Alprazolam (Xanax) 0.5 mg Q12H PRN PEG ANXIETY Last administered on 11/20/16 05 :30; Admin Dose 0.5 MG; Start 11/16/16 at 20:30 Ascorbic Acid (Vitamin C) 500 mg BID PEG Last administered on 11/23/16 08:21; Admin Dose 500 MG; Start 11/16/16 at 21:00 Atorvastatin Calcium (Lipitor) 20 mg QHS PEG Last administered on 11/22/16 21: 12; Admin Dose 20 MG; Start 11/16/16 at 21:00 Diazepam (Valium) 10 mg DAILY PEG Last administered on 11/23/16 08:32; Admin Dose 10 MG; Start 11/17/16 at 09:00 Duloxetine HCl (Cymbalta) 20 mg DAILY PEG Last administered on 11/23/16 09:58; Admin Dose 20 MG; Start 11/17/16 at 09:00 Fluconazole (Diflucan) 100 mg DAILY PEG Last administered on 11/23/16 08:20; Admin Dose 100 MG; Start 11/17/16 at 09:00 Lactobacillus Acidophilus (Florajen3 Capsule) 1 each TID PEG Last administered on 11/23/16 12:18; Admin Dose 1 EACH; Start 11/16/16 at 21:00 Metronidazole (Flagyl) 500 mg Q8 PEG Last administered on 11/23/16 13:40; Admin Dose 500 MG; Start 11/16/16 at 22:00 Promethazine HCl/ Codeine (Phenergan/ Codeine) 10 ml BID PRN PEG COUGH Last administered on 11/19/16 15:13; Admin Dose 10 ML; Start 11/16/16 at 20:00 Zolpidem Tartrate (Ambien) 5 mg QHS PRN PEG INSOMNIA; Start 11/16/16 at 20:00 Docusate Sodium (Colace Liquid Cup) 100 mg Q12 PRN GTB CONSTIPATION; Start 11/16 at 20:00 Midodrine (Proamatine) 2.5 mg TID@08,12,17 NGT Last administered on 11/23/16 12 :18; Admin Dose 2.5 MG; Start 11/19/16 at 17:00 Oxycodone HCl 10 mg 10 mg Q4H PO Last administered on 11/23/16 13:41; Admin Dose 10 MG; Start 11/20/16 at 17:30 Sodium Chloride 1,000 ml @ 50 mls/hr Q20H IV Last administered on 11/23/16 04: 42; Admin Dose 50 MLS/HR; Start 11/23/16 at 04:00 Norepinephrine/ Dextrose (Levophed/D5W) 500 ml @ 1.87 mls/hr TITRATE IV Last administered on 11/23/16t 10:18; Admin Dose 20.62 MLS/HR; Start 11/23/16 at 09:00 DIONNE SAUCEDA MD Nov 23, 2016 17:04
[2016-11-23] MEDS: ATORVASTATIN 20 MG TAB PEG SCH (20:58)
--- NOTE | 2016-11-23 22:50 | CONS ---
Date/Time of Note Date/Time of Note DATE: 11/23/16 TIME: 22:50 Assessment/Plan Assessment/Plan Chief Complaint/Hosp Course Left lung squamous carcinoma. The patient is not a candidate for chemotherapy. Anemia of chronic disease. post 8 u prbc monitor blood count closely transfuse as needed to keep HB above 8 Acute respiratory insufficiency requiring BiPAP. Acute shock, septic versus hypovolemic. tachycardia with episode of SVT. Chronic obstructive pulmonary disease. Dysphagia with G-tube. Continue current G-tube feeding. Hypothyroidism. Continue Synthroid. Problems: Consultation Date/Type/Reason Admit Date/Time Sep 26, 2016 at 20:07 Initial Consult Date 10/19/16 Type of Consultation: hemeon Referring Provider: DRE LOBATO MD 24 HR Interval Summary Free Text/Dictation d/w staff no new event Exam/Review of Systems Vital Signs Vitals Vital Signs Date Time Temp Pulse Resp B/P Pulse Ox O2 Delivery O2 Flow Rate FiO2 11/23/16 20:00 108 11/23/16 18:45 18 124/77 100 Mechanical Ventilator 11/23/16 17:30 40 11/23/16 16:15 98.8 11/22/16 20:23 15.0 Intake and Output 11/22/16 11/22/16 11/23/16 15:00 23:00 07:00 Intake Total 1335 ml 480 ml 443.750 ml Output Total 1100 ml 300 ml 340 ml Balance 235 ml 180 ml 103.750 ml Exam Constitutional: alert Head: atraumatic, normocephalic Neck: supple Respiratory: diminished breath sounds, other (Rhonchi bilaterally) Cardiovascular: nl pulses Gastrointestinal: non-tender, other (G-tube), soft Extremities: normal pulses Skin: other (Multiple wounds) Results Result Diagram: 11/23/16 0631 11/23/16 0631 Results 24 hrs Laboratory Tests Test 11/23/16 02:52 11/23/16 03:49 11/23/16 06:31 Bedside Glucose 173 Blood Gas Specimen Source Blood arterial Arterial Blood Date Drawn 11/23/2016 3:45:13 AM Arterial Blood pH (Temp corrected) 7.288 *L Arterial Blood pCO2 (Temp correct) 61.7 H Arterial Blood pO2 (Temp corrected) 314.7 H Arterial Blood HCO3 28.9 H Arterial Blood Base Excess 1.3 Arterial Blood Oxygen Saturation 99.4 H Nader Test ACCEPTAB Arterial Blood Gas Puncture Site Right Radial Arterial Blood Carboxyhemoglobin 0.3 Arterial Blood Methemoglobin 0.4 Blood Gas A-a O2 Differential 336.6 H Oxyhemoglobin Percent 98.7 Total Hemoglobin 10.4 L Blood Gas Temperature 37.0 Blood Gas Respiration Rate 18.0 Blood Gas Actual Respiration Rate 18 Blood Gas Modality VENT - AC FiO2 100.0 Blood Gas Tidal Volume 450.0 Blood Gas Low PEEP Setting 5.0 Blood Gas Critical Value Read Back PADMINI RN Blood Gas Notified Whom MA Blood Gas Notified Time 11/23/2016 4:00:15 AM White Blood Count 22.4 #H Red Blood Count 3.14 L Hemoglobin 8.5 L Hematocrit 28.5 L Mean Corpuscular Volume 90.8 Mean Corpuscular Hemoglobin 27.1 L Mean Corpuscular Hemoglobin Concent 29.8 L Red Cell Distribution Width 17.4 H Platelet Count 456 H Mean Platelet Volume 8.7 Neutrophils % 80.9 H Lymphocytes % 6.3 L Monocytes % 10.0 Eosinophils % 0.5 Basophils % 0.4 Nucleated Red Blood Cells % 0.0 Neutrophils # 18.1 H Lymphocytes # 1.4 Monocytes # 2.2 H Eosinophils # 0.1 Basophils # 0.1 Nucleated Red Blood Cells # 0.0 Sodium Level 133 L Potassium Level 5.0 Chloride Level 96 L Carbon Dioxide Level 33 H Anion Gap 9 Blood Urea Nitrogen 17 Creatinine 0.49 Glucose Level 122 Calcium Level 8.8 Medications Medications Current Medications Ondansetron HCl (Zofran Inj) 4 mg Q6 PRN IV NAUSEA AND/OR VOMITING; Start 09/26 at 22:30 Collagenase (Santyl) 1 applic DAILY TOP Last administered on 11/23/16 08:20; Admin Dose 1 APPLIC; Start 09/27/16 at 09:00 Collagenase (Santyl) 1 applic PRN PRN TOP SOILED OR DISLODGED DRESSING; Start 09/27/16 at 05:00 Lansoprazole (Prevacid) 30 mg DAILY@06 GTB Last administered on 11/23/16 06:04 ; Admin Dose 30 MG; Start 09/28/16 at 06:00 Cromolyn Sodium (Nasalcrom) 1 spray QID NASAL Last administered on 11/23/16 20: 58; Admin Dose 1 SPRAY; Start 09/29/16 at 11:02 Phenol (Cepastat Lozenge) 1 lozenge Q2H PRN MT SORE THROAT Last administered on 11/02/16 01:02; Admin Dose 1 LOZENGE; Start 10/01/16 at 19:00 IV Flush (NS 10 ml) 10 ml PRN PRN IV IV PROTOCOL Last administered on 11/17/16 03:20; Admin Dose 10 ML; Start 10/02/16 at 19:00 Hydromorphone HCl (Dilaudid) 0.5 mg Q4H PRN IV PAIN Last administered on 21:12; Admin Dose 0.5 MG; Start 10/06/16 at 18:30 Potassium Chloride (Potassium Chloride Pwd/Soln) 20 meq DAILY GTB Last administered on 11/22/16 09:20; Admin Dose 20 MEQ; Start 10/30/16 at 12:00 Metoprolol Tartrate 25 mg 25 mg Q6 PRN GTB For HR > 130 Last administered on 21:09; Admin Dose 25 MG; Start 11/12/16 at 22:30 Meropenem 100 ml @ 200 mls/hr Q8 IVPB Last administered on 11/23/16 21:04; Admin Dose 200 MLS/HR; Start 11/14/16 at 14:00 Vancomycin HCl/ Sodium Chloride (Vancocin/NS) 150 ml @ 75 mls/hr Q12H IVPB Last administered on 11/23/16 21:14; Admin Dose 75 MLS/HR; Start 11/15/16 at 10: 00 Acetaminophen (Tylenol Liquid) 650 mg Q6H PRN PEG PAIN AND OR ELEVATED TEMP Last administered on 11/20/16 10:46; Admin Dose 650 MG; Start 11/16/16 at 20:04 Alprazolam (Xanax) 0.5 mg Q12H PRN PEG ANXIETY Last administered on 11/20/16 05 :30; Admin Dose 0.5 MG; Start 11/16/16 at 20:30 Ascorbic Acid (Vitamin C) 500 mg BID PEG Last administered on 11/23/16 20:58; Admin Dose 500 MG; Start 11/16/16 at 21:00 Atorvastatin Calcium (Lipitor) 20 mg QHS PEG Last administered on 11/23/16 20: 58; Admin Dose 20 MG; Start 11/16/16 at 21:00 Diazepam (Valium) 10 mg DAILY PEG Last administered on 11/23/16 08:32; Admin Dose 10 MG; Start 11/17/16 at 09:00 Duloxetine HCl (Cymbalta) 20 mg DAILY PEG Last administered on 11/23/16 09:58; Admin Dose 20 MG; Start 11/17/16 at 09:00 Fluconazole (Diflucan) 100 mg DAILY PEG Last administered on 11/23/16 08:20; Admin Dose 100 MG; Start 11/17/16 at 09:00 Lactobacillus Acidophilus (Florajen3 Capsule) 1 each TID PEG Last administered on 11/23/16 20:58; Admin Dose 1 EACH; Start 11/16/16 at 21:00 Metronidazole (Flagyl) 500 mg Q8 PEG Last administered on 11/23/16 21:13; Admin Dose 500 MG; Start 11/16/16 at 22:00 Promethazine HCl/ Codeine (Phenergan/ Codeine) 10 ml BID PRN PEG COUGH Last administered on 11/19/16 15:13; Admin Dose 10 ML; Start 11/16/16 at 20:00 Zolpidem Tartrate (Ambien) 5 mg QHS PRN PEG INSOMNIA; Start 11/16/16 at 20:00 Docusate Sodium (Colace Liquid Cup) 100 mg Q12 PRN GTB CONSTIPATION; Start 11/16 at 20:00 Midodrine (Proamatine) 2.5 mg TID@08,12,17 NGT Last administered on 11/23/16 17 :02; Admin Dose 2.5 MG; Start 11/19/16 at 17:00 Oxycodone HCl 10 mg 10 mg Q4H PO Last administered on 11/23/16 20:59; Admin Dose 10 MG; Start 11/20/16 at 17:30 Sodium Chloride 1,000 ml @ 50 mls/hr Q20H IV Last administered on 11/23/16 04: 42; Admin Dose 50 MLS/HR; Start 11/23/16 at 04:00 Norepinephrine/ Dextrose (Levophed/D5W) 500 ml @ 1.87 mls/hr TITRATE IV Last administered on 11/23/16 10:18; Admin Dose 20.62 MLS/HR; Start 11/23/16 at 09:00 DYLLAN CARRION MD Nov 23, 2016 22:50
[2016-11-24] VITALS (107 sets, daily range): BP systolic 72–127; BP diastolic 52–98; PULSE 103–157; RESP 12–27
[2016-11-24] MEDS: SOD CHLORIDE 0.9% 1,000 ML IV SCH ×2 (00:30→20:14)
[2016-11-24] MEDS: oxyCODONE 5 MG TAB PO SCH ×6 (00:31→21:46)
[2016-11-24] MEDS: LANSOPRAZOLE 30 MG CAP GTB SCH (05:20)
[2016-11-24] MEDS: metroNIDAZOLE 500 MG TAB PEG SCH ×3 (05:20→21:47)
[2016-11-24] MEDS: MEROPENEM 500 MG/100 ML (PMX) 100 ML IVPB SCH ×3 (05:21→21:46)
[2016-11-24] MEDS: LEVOTHYROXINE 125 MCG TAB PEG SCH (06:04)
[2016-11-24 06:46] LABS: ADD SCAN DIFF NO
[2016-11-24 06:56] LABS: ABNORMAL IP MESSAGE 1; BASOPHIL # 0.1 10^3/ul (0.0-0.1); BASOPHILS % 0.5 % (0.0-2.0); EOSINOPHILS # 0.3 10^3/ul (0.0-0.5); EOSINOPHILS % 1.3 % (0.0-7.0); HEMATOCRIT 25.3 % (37.0-47.0); HEMOGLOBIN 7.7 g/dl (12.0-16.0); LYMPHOCYTES # 1.9 10^3/ul (0.8-2.9); LYMPHOCYTES % 9.1 % (15.0-51.0); MEAN CORPUSCULAR HEMOGLOBIN 26.9 pg (29.0-33.0); MEAN CORPUSCULAR HGB CONC 30.4 g/dl (32.0-37.0); MEAN CORPUSCULAR VOLUME 88.5 fl (82.0-101.0); MEAN PLATELET VOLUME 9.3 fl (7.4-10.4); MONOCYTE # 2.1 10^3/ul (0.3-0.9); MONOCYTES % 10.2 % (0.0-11.0); NEUTROPHIL # 16.1 10^3/ul (1.6-7.5); NEUTROPHILS % 77.7 % (39.0-77.0); PLATELET COUNT 488 10^3/UL (140-415); RED BLOOD COUNT 2.86 10^6/ul (4.20-5.40); RED CELL DISTRIBUTION WIDTH 17.6 % (11.5-14.5); WHITE BLOOD COUNT 20.8 10^3/ul (4.8-10.8)
[2016-11-24 07:15] LABS: ALBUMIN 2.6 g/dl (3.3-4.9); ALBUMIN/GLOBULIN RATIO 0.6; CALCIUM 8.6 mg/dl (8.4-10.2); CREATININE 0.52 mg/dl (0.44-1.00); POTASSIUM 4.3 mmol/L (3.5-5.1); TOTAL PROTEIN 6.9 g/dl (6.1-8.1)
[2016-11-24] MEDS: COLLAGENASE 30 GM TUBE TOP SCH (09:00)
[2016-11-24] MEDS: DULOXETINE 20 MG CAP DR PEG SCH (09:40)
[2016-11-24] MEDS: L ACIDOPHIL/B LACTIS/B LONGUM CAPSULE PEG SCH ×3 (09:40→20:14)
[2016-11-24] MEDS: DIAZEPAM 5 MG TAB PEG SCH (09:41)
[2016-11-24] MEDS: MIDODRINE 2.5 MG TAB NGT SCH ×4 (09:41→20:13)
[2016-11-24] MEDS: FLUCONAZOLE 100 MG TAB PEG SCH (09:41)
[2016-11-24] MEDS: CROMOLYN 4% 26ML NAS INH NASAL SCH ×4 (09:42→20:14)
[2016-11-24] MEDS: VANCOMYCIN 750 MG in SOD CHLORIDE 0.9% 150 ML IVPB SCH ×2 (09:42→21:47)
--- NOTE | 2016-11-24 10:33 | CONS ---
Date/Time of Note Date/Time of Note DATE: 11/24/16 TIME: 10:32 Consult Date/Type/Reason Admit Date/Time Sep 26, 2016 at 20:07 Initial Consult Date 11/14/16 Type of Consultation: Pulmonary ICU Ordering Provider: DRE LOBATO MD Subjective Patient remains intubated sedated on mechanical ventilation Objective Vital Signs Date Time Temp Pulse Resp B/P Pulse Ox O2 Delivery O2 Flow Rate FiO2 11/24/16 08:45 125 18 107/75 97 11/24/16 08:00 97.8 Mechanical Ventilator 11/24/16 05:25 35 11/22/16 20:23 15.0 Intake and Output 11/23/16 11/23/16 11/24/16 15:00 23:00 07:00 Intake Total 796.86 ml 715.00 ml 738.75 ml Output Total 415 ml 490 ml 450 ml Balance 381.86 ml 225.00 ml 288.75 ml Exam PHYSICAL EXAMINATION: GENERAL: Chronically ill appearing lady orally intubated on mechanical ventilation VITAL SIGNS: HEENT: Dry mucous membranes. Pupils minimally responsive CARDIAC: S1, S2, no added sounds or murmurs. CHEST: Diminished air entry bilaterally with rales. ABDOMEN: Soft, nontender. No guarding or rebound. EXTREMITIES: No cyanosis, clubbing or edema. NEUROLOGIC: Generalized weakness. Unable to assess. Results/Medications Result Diagram: 11/24/16 0500 11/24/16 0500 Results 24 hrs Laboratory Tests Test 11/24/16 05:00 White Blood Count 20.8 H Red Blood Count 2.86 L Hemoglobin 7.7 L Hematocrit 25.3 L Mean Corpuscular Volume 88.5 Mean Corpuscular Hemoglobin 26.9 L Mean Corpuscular Hemoglobin Concent 30.4 L Red Cell Distribution Width 17.6 H Platelet Count 488 H Mean Platelet Volume 9.3 Neutrophils % 77.7 H Lymphocytes % 9.1 L Monocytes % 10.2 Eosinophils % 1.3 Basophils % 0.5 Nucleated Red Blood Cells % 0.0 Neutrophils # 16.1 H Lymphocytes # 1.9 Monocytes # 2.1 H Eosinophils # 0.3 Basophils # 0.1 Nucleated Red Blood Cells # 0.0 Sodium Level 135 Potassium Level 4.3 Chloride Level 97 Carbon Dioxide Level 33 H Anion Gap 9 Blood Urea Nitrogen 16 Creatinine 0.52 Glucose Level 65 #L Calcium Level 8.6 Total Bilirubin 0.0 L Direct Bilirubin 0.00 Indirect Bilirubin 0.0 Aspartate Amino Transf (AST/SGOT) 39 Alanine Aminotransferase (ALT/SGPT) 34 Alkaline Phosphatase 205 H Total Protein 6.9 Albumin 2.6 L Globulin 4.30 H Albumin/Globulin Ratio 0.60 Medications Current Medications Ondansetron HCl (Zofran Inj) 4 mg Q6 PRN IV NAUSEA AND/OR VOMITING; Start 09/26 at 22:30 Collagenase (Santyl) 1 applic DAILY TOP Last administered on 11/23/16 08:20; Admin Dose 1 APPLIC; Start 09/27/16 at 09:00 Collagenase (Santyl) 1 applic PRN PRN TOP SOILED OR DISLODGED DRESSING; Start 09/27/16 at 05:00 Lansoprazole (Prevacid) 30 mg DAILY@06 GTB Last administered on 11/24/16 05:20 ; Admin Dose 30 MG; Start 09/28/16 at 06:00 Cromolyn Sodium (Nasalcrom) 1 spray QID NASAL Last administered on 11/24/16 09: 42; Admin Dose 1 SPRAY; Start 09/29/16 at 11:02 Phenol (Cepastat Lozenge) 1 lozenge Q2H PRN MT SORE THROAT Last administered on 11/02/16 01:02; Admin Dose 1 LOZENGE; Start 10/01/16 at 19:00 IV Flush (NS 10 ml) 10 ml PRN PRN IV IV PROTOCOL Last administered on 11/17/16 03:20; Admin Dose 10 ML; Start 10/02/16 at 19:00 Hydromorphone HCl (Dilaudid) 0.5 mg Q4H PRN IV PAIN Last administered on 21:12; Admin Dose 0.5 MG; Start 10/06/16 at 18:30 Potassium Chloride (Potassium Chloride Pwd/Soln) 20 meq DAILY GTB Last administered on 11/22/16 09:20; Admin Dose 20 MEQ; Start 10/30/16 at 12:00 Metoprolol Tartrate 25 mg 25 mg Q6 PRN GTB For HR > 130 Last administered on 21:09; Admin Dose 25 MG; Start 11/12/16 at 22:30 Meropenem 100 ml @ 200 mls/hr Q8 IVPB Last administered on 11/24/16 05:21; Admin Dose 200 MLS/HR; Start 11/14/16 at 14:00 Vancomycin HCl/ Sodium Chloride (Vancocin/NS) 150 ml @ 75 mls/hr Q12H IVPB Last administered on 11/24/16 09:42; Admin Dose 75 MLS/HR; Start 11/15/16 at 10: 00 Acetaminophen (Tylenol Liquid) 650 mg Q6H PRN PEG PAIN AND OR ELEVATED TEMP Last administered on 11/20/16 10:46; Admin Dose 650 MG; Start 11/16/16 at 20:04 Alprazolam (Xanax) 0.5 mg Q12H PRN PEG ANXIETY Last administered on 11/20/16 05 :30; Admin Dose 0.5 MG; Start 11/16/16 at 20:30 Ascorbic Acid (Vitamin C) 500 mg BID PEG Last administered on 11/23/16 20:58; Admin Dose 500 MG; Start 11/16/16 at 21:00 Atorvastatin Calcium (Lipitor) 20 mg QHS PEG Last administered on 11/23/16 20: 58; Admin Dose 20 MG; Start 11/16/16 at 21:00 Diazepam (Valium) 10 mg DAILY PEG Last administered on 11/24/16 09:41; Admin Dose 10 MG; Start 11/17/16 at 09:00 Duloxetine HCl (Cymbalta) 20 mg DAILY PEG Last administered on 11/24/16 09:40; Admin Dose 20 MG; Start 11/17/16 at 09:00 Fluconazole (Diflucan) 100 mg DAILY PEG Last administered on 11/24/16 09:41; Admin Dose 100 MG; Start 11/17/16 at 09:00 Lactobacillus Acidophilus (Florajen3 Capsule) 1 each TID PEG Last administered on 11/24/16 09:40; Admin Dose 1 EACH; Start 11/16/16 at 21:00 Metronidazole (Flagyl) 500 mg Q8 PEG Last administered on 11/24/16 05:20; Admin Dose 500 MG; Start 11/16/16 at 22:00 Promethazine HCl/ Codeine (Phenergan/ Codeine) 10 ml BID PRN PEG COUGH Last administered on 11/19/16 15:13; Admin Dose 10 ML; Start 11/16/16 at 20:00 Zolpidem Tartrate (Ambien) 5 mg QHS PRN PEG INSOMNIA; Start 11/16/16 at 20:00 Docusate Sodium (Colace Liquid Cup) 100 mg Q12 PRN GTB CONSTIPATION; Start 11/16 at 20:00 Midodrine (Proamatine) 2.5 mg TID@08,12,17 NGT Last administered on 11/24/16 09 :41; Admin Dose 2.5 MG; Start 11/19/16 at 17:00 Oxycodone HCl 10 mg 10 mg Q4H PO Last administered on 11/24/16 09:41; Admin Dose 10 MG; Start 11/20/16 at 17:30 Sodium Chloride 1,000 ml @ 50 mls/hr Q20H IV Last administered on 11/24/16 00: 30; Admin Dose 50 MLS/HR; Start 11/23/16 at 04:00 Norepinephrine/ Dextrose (Levophed/D5W) 500 ml @ 1.87 mls/hr TITRATE IV Last administered on 11/23/16 10:18; Admin Dose 20.62 MLS/HR; Start 11/23/16 at 09:00 Miscellaneous Information (*Rx Drug Level Order Reminder*) VANCOMYCIN TROUGH LEVEL... ONCE ONCE XX ; Start 11/25/16 at 09:00; Stop 11/25/16 at 09:01 Assessment/Plan Chief Complaint/Hosp Course Assessment 1. Acute on chronic hypoxemic and hypercapnic respiratory failure now requiring mechanical ventilation 2. Persistent leukocytosis possible pneumonia postobstructive 3. Encephalopathy likely toxic metabolic 4. Status post cardiopulmonary arrest 5. Anemia likely of chronic disease 6. Metastatic lung cancer Plan 1. Continue mechanical ventilation 2. Family conference regarding goals of care. Discussed with primary care team family deciding on goals of care and will let him know early next week. 3. Continue nasogastric tube feeding 4. DVT and GI prophylaxis Disposition Continue current ICU care Overall prognosis very poor consider palliative care consult Problems: CASSIE VACA MD, [facility] Nov 24, 2016 10:33
[2016-11-24] MEDS: POTASSIUM CHLORIDE 20 MEQ POWDER FOR ORAL SOLN GTB SCH (12:41)
[2016-11-24] MEDS: ASCORBIC ACID 500 MG TAB PEG SCH ×2 (12:41→20:15)
--- NOTE | 2016-11-24 13:03 | CONS ---
Date/Time of Note Date/Time of Note DATE: 11/24/16 TIME: 13:01 Assessment/Plan Assessment/Plan Additional Assessment/Plan Septic shock Respiratory failure Cardiopulmonary Arrest Hypotension Diastolic congestive heart failure Pulmonary hypertension Preserved ejection fraction Tricuspid valve regurgitation Lung cancer SVT -Patient remains on IV pressor, titrate to maintain SBP greater than 90 and/or map above 60. Vent management as per our pulmonary colleagues. Awaiting family conference regarding goals of care. Consultation Date/Type/Reason Admit Date/Time Sep 26, 2016 at 20:07 Type of Consultation: cv Referring Provider: DRE LOBATO MD 24 HR Interval Summary Free Text/Dictation Patient remains intubated. Occasional brief tachycardia noted as per nursing staff Exam/Review of Systems Vital Signs Vitals Vital Signs Date Time Temp Pulse Resp B/P Pulse Ox O2 Delivery O2 Flow Rate FiO2 11/24/16 12:24 114 11/24/16 12:15 18 100/69 97 11/24/16 12:00 98.9 Mechanical Ventilator 11/24/16 05:25 35 11/22/16 20:23 15.0 Intake and Output 11/23/16 11/23/16 11/24/16 15:00 23:00 07:00 Intake Total 796.86 ml 715.00 ml 738.75 ml Output Total 415 ml 490 ml 450 ml Balance 381.86 ml 225.00 ml 288.75 ml Exam Intubated, no apparent distress, sleeping but arousable Head: normocephalic ENMT: intubated Respiratory: other (Coarse breath sounds bilaterally, decrease at the bases, no wheezing) Cardiovascular: other (S1-S2 heard), regular rate and rhythm Gastrointestinal: bowel sounds, non-tender, other (No grimacing with palpation) , soft Extremities: edema (Trace) Results Result Diagram: 11/24/16 0500 11/24/16 0500 Results 24 hrs Laboratory Tests Test 11/24/16 05:00 White Blood Count 20.8 H Red Blood Count 2.86 L Hemoglobin 7.7 L Hematocrit 25.3 L Mean Corpuscular Volume 88.5 Mean Corpuscular Hemoglobin 26.9 L Mean Corpuscular Hemoglobin Concent 30.4 L Red Cell Distribution Width 17.6 H Platelet Count 488 H Mean Platelet Volume 9.3 Neutrophils % 77.7 H Lymphocytes % 9.1 L Monocytes % 10.2 Eosinophils % 1.3 Basophils % 0.5 Nucleated Red Blood Cells % 0.0 Neutrophils # 16.1 H Lymphocytes # 1.9 Monocytes # 2.1 H Eosinophils # 0.3 Basophils # 0.1 Nucleated Red Blood Cells # 0.0 Sodium Level 135 Potassium Level 4.3 Chloride Level 97 Carbon Dioxide Level 33 H Anion Gap 9 Blood Urea Nitrogen 16 Creatinine 0.52 Glucose Level 65 #L Calcium Level 8.6 Total Bilirubin 0.0 L Direct Bilirubin 0.00 Indirect Bilirubin 0.0 Aspartate Amino Transf (AST/SGOT) 39 Alanine Aminotransferase (ALT/SGPT) 34 Alkaline Phosphatase 205 H Total Protein 6.9 Albumin 2.6 L Globulin 4.30 H Albumin/Globulin Ratio 0.60 Medications Medications Current Medications Ondansetron HCl (Zofran Inj) 4 mg Q6 PRN IV NAUSEA AND/OR VOMITING; Start 09/26 at 22:30 Collagenase (Santyl) 1 applic DAILY TOP Last administered on 11/23/16 08:20; Admin Dose 1 APPLIC; Start 09/27/16 at 09:00 Collagenase (Santyl) 1 applic PRN PRN TOP SOILED OR DISLODGED DRESSING; Start 09/27/16 at 05:00 Lansoprazole (Prevacid) 30 mg DAILY@06 GTB Last administered on 11/24/16 05:20 ; Admin Dose 30 MG; Start 09/28/16 at 06:00 Cromolyn Sodium (Nasalcrom) 1 spray QID NASAL Last administered on 11/24/16 09: 42; Admin Dose 1 SPRAY; Start 09/29/16 at 11:02 Phenol (Cepastat Lozenge) 1 lozenge Q2H PRN MT SORE THROAT Last administered on 11/02/16 01:02; Admin Dose 1 LOZENGE; Start 10/01/16 at 19:00 IV Flush (NS 10 ml) 10 ml PRN PRN IV IV PROTOCOL Last administered on 11/17/16 03:20; Admin Dose 10 ML; Start 10/02/16 at 19:00 Hydromorphone HCl (Dilaudid) 0.5 mg Q4H PRN IV PAIN Last administered on 21:12; Admin Dose 0.5 MG; Start 10/06/16 at 18:30 Potassium Chloride (Potassium Chloride Pwd/Soln) 20 meq DAILY GTB Last administered on 11/24/16 12:41; Admin Dose 20 MEQ; Start 10/30/16 at 12:00 Metoprolol Tartrate 25 mg 25 mg Q6 PRN GTB For HR > 130 Last administered on 21:09; Admin Dose 25 MG; Start 11/12/16 at 22:30 Meropenem 100 ml @ 200 mls/hr Q8 IVPB Last administered on 11/24/16 05:21; Admin Dose 200 MLS/HR; Start 11/14/16 at 14:00 Vancomycin HCl/ Sodium Chloride (Vancocin/NS) 150 ml @ 75 mls/hr Q12H IVPB Last administered on 11/24/16 09:42; Admin Dose 75 MLS/HR; Start 11/15/16 at 10: 00 Acetaminophen (Tylenol Liquid) 650 mg Q6H PRN PEG PAIN AND OR ELEVATED TEMP Last administered on 11/20/16 10:46; Admin Dose 650 MG; Start 11/16/16 at 20:04 Alprazolam (Xanax) 0.5 mg Q12H PRN PEG ANXIETY Last administered on 11/20/16 05 :30; Admin Dose 0.5 MG; Start 11/16/16 at 20:30 Ascorbic Acid (Vitamin C) 500 mg BID PEG Last administered on 11/24/16 12:41; Admin Dose 500 MG; Start 11/16/16 at 21:00 Atorvastatin Calcium (Lipitor) 20 mg QHS PEG Last administered on 11/23/16 20: 58; Admin Dose 20 MG; Start 11/16/16 at 21:00 Diazepam (Valium) 10 mg DAILY PEG Last administered on 11/24/16 09:41; Admin Dose 10 MG; Start 11/17/16 at 09:00 Duloxetine HCl (Cymbalta) 20 mg DAILY PEG Last administered on 11/24/16 09:40; Admin Dose 20 MG; Start 11/17/16 at 09:00 Fluconazole (Diflucan) 100 mg DAILY PEG Last administered on 11/24/16 09:41; Admin Dose 100 MG; Start 11/17/16 at 09:00 Lactobacillus Acidophilus (Florajen3 Capsule) 1 each TID PEG Last administered on 11/24/16 09:40; Admin Dose 1 EACH; Start 11/16/16 at 21:00 Metronidazole (Flagyl) 500 mg Q8 PEG Last administered on 11/24/16 05:20; Admin Dose 500 MG; Start 11/16/16 at 22:00 Promethazine HCl/ Codeine (Phenergan/ Codeine) 10 ml BID PRN PEG COUGH Last administered on 11/19/16 15:13; Admin Dose 10 ML; Start 11/16/16 at 20:00 Zolpidem Tartrate (Ambien) 5 mg QHS PRN PEG INSOMNIA; Start 11/16/16 at 20:00 Docusate Sodium (Colace Liquid Cup) 100 mg Q12 PRN GTB CONSTIPATION; Start 11/16 at 20:00 Midodrine (Proamatine) 2.5 mg TID@08,12,17 NGT Last administered on 11/24/16 12 :41; Admin Dose 2.5 MG; Start 11/19/16 at 17:00 Oxycodone HCl 10 mg 10 mg Q4H PO Last administered on 11/24/16 09:41; Admin Dose 10 MG; Start 11/20/16 at 17:30 Sodium Chloride 1,000 ml @ 50 mls/hr Q20H IV Last administered on 11/24/16 00: 30; Admin Dose 50 MLS/HR; Start 11/23/16 at 04:00 Norepinephrine/ Dextrose (Levophed/D5W) 500 ml @ 1.87 mls/hr TITRATE IV Last administered on 11/23/16 10:18; Admin Dose 20.62 MLS/HR; Start 11/23/16 at 09:00 Miscellaneous Information (*Rx Drug Level Order Reminder*) VANCOMYCIN TROUGH LEVEL... ONCE ONCE XX ; Start 11/25/16 at 09:00; Stop 11/25/16 at 09:01 Artemio Tipton DO Nov 24, 2016 13:03
--- NOTE | 2016-11-24 13:43 | CONS ---
Date/Time of Note Date/Time of Note DATE: 11/24/16 TIME: 13:41 Assessment/Plan Assessment/Plan Chief Complaint/Hosp Course SUBJECTIVE: no acute changes, intubated, no Levophed gtt, nad INDWELLINGS: Endotracheal tube, PEG, George, PICC line. ANTIMICROBIALS: 1. The patient remains on broad spectrum coverage with Fluconazole. 2. Flagyl. 3. Vancomycin. 4. Meropenem. PHYSICAL EXAMINATION: GENERAL: Chronically ill-appearing, cachectic, elderly woman who is intubated, in no distress. HEENT: Head atraumatic, normocephalic. Sclerae anicteric. Buccal mucosa dry. NECK: Supple. CHEST: Rise symmetrical. Breath sounds diminished. HEART: S1, S2. ABDOMEN: Soft. Bowel tones hypoactive. EXTREMITIES: No cyanosis. ASSESSMENT: 1. Acute on chronic respiratory failure, status post cardiopulmonary arrest. 2. Pneumonia. 3. Lung cancer. 4. History of Clostridium difficile colitis and recurrent urinary tract infection. 5. Unstageable sacral wound, status post debridement with wound VAC application. PLAN: The patient remains unchanged, covered with broad spectrum antibiotics. She is being followed by multiple consultants. Prognosis poor. May need trach DW Dr Dozier Problems: Consultation Date/Type/Reason Admit Date/Time Sep 26, 2016 at 20:07 Type of Consultation: ID Referring Provider: DRE DOZIER MD Exam/Review of Systems Vital Signs Vitals Vital Signs Date Time Temp Pulse Resp B/P Pulse Ox O2 Delivery O2 Flow Rate FiO2 11/24/16 12:24 114 11/24/16 12:15 18 100/69 97 11/24/16 12:00 98.9 Mechanical Ventilator 11/24/16 11:40 35 11/22/16 20:23 15.0 Intake and Output 11/23/16 11/23/16 11/24/16 15:00 23:00 07:00 Intake Total 796.86 ml 715.00 ml 800.00 ml Output Total 415 ml 490 ml 450 ml Balance 381.86 ml 225.00 ml 350.00 ml Results Result Diagram: 11/24/16 0500 11/24/16 0500 Results 24 hrs Laboratory Tests Test 11/24/16 05:00 White Blood Count 20.8 H Red Blood Count 2.86 L Hemoglobin 7.7 L Hematocrit 25.3 L Mean Corpuscular Volume 88.5 Mean Corpuscular Hemoglobin 26.9 L Mean Corpuscular Hemoglobin Concent 30.4 L Red Cell Distribution Width 17.6 H Platelet Count 488 H Mean Platelet Volume 9.3 Neutrophils % 77.7 H Lymphocytes % 9.1 L Monocytes % 10.2 Eosinophils % 1.3 Basophils % 0.5 Nucleated Red Blood Cells % 0.0 Neutrophils # 16.1 H Lymphocytes # 1.9 Monocytes # 2.1 H Eosinophils # 0.3 Basophils # 0.1 Nucleated Red Blood Cells # 0.0 Sodium Level 135 Potassium Level 4.3 Chloride Level 97 Carbon Dioxide Level 33 H Anion Gap 9 Blood Urea Nitrogen 16 Creatinine 0.52 Glucose Level 65 #L Calcium Level 8.6 Total Bilirubin 0.0 L Direct Bilirubin 0.00 Indirect Bilirubin 0.0 Aspartate Amino Transf (AST/SGOT) 39 Alanine Aminotransferase (ALT/SGPT) 34 Alkaline Phosphatase 205 H Total Protein 6.9 Albumin 2.6 L Globulin 4.30 H Albumin/Globulin Ratio 0.60 Medications Medications Current Medications Ondansetron HCl (Zofran Inj) 4 mg Q6 PRN IV NAUSEA AND/OR VOMITING; Start 09/26 at 22:30 Collagenase (Santyl) 1 applic DAILY TOP Last administered on 11/23/16 08:20; Admin Dose 1 APPLIC; Start 09/27/16 at 09:00 Collagenase (Santyl) 1 applic PRN PRN TOP SOILED OR DISLODGED DRESSING; Start 09/27/16 at 05:00 Lansoprazole (Prevacid) 30 mg DAILY@06 GTB Last administered on 11/24/16 05:20 ; Admin Dose 30 MG; Start 09/28/16 at 06:00 Cromolyn Sodium (Nasalcrom) 1 spray QID NASAL Last administered on 11/24/16 09: 42; Admin Dose 1 SPRAY; Start 09/29/16 at 11:02 Phenol (Cepastat Lozenge) 1 lozenge Q2H PRN MT SORE THROAT Last administered on 11/02/16 01:02; Admin Dose 1 LOZENGE; Start 10/01/16 at 19:00 IV Flush (NS 10 ml) 10 ml PRN PRN IV IV PROTOCOL Last administered on 11/17/16 03:20; Admin Dose 10 ML; Start 10/02/16 at 19:00 Hydromorphone HCl (Dilaudid) 0.5 mg Q4H PRN IV PAIN Last administered on 21:12; Admin Dose 0.5 MG; Start 10/06/16 at 18:30 Potassium Chloride 20 meq 20 meq DAILY GTB Last administered on 11/24/16 12:41 ; Admin Dose 20 MEQ; Start 10/30/16 at 12:00 Meropenem 100 ml @ 200 mls/hr Q8 IVPB Last administered on 11/24/16 05:21; Admin Dose 200 MLS/HR; Start 11/14/16 at 14:00 Vancomycin HCl/ Sodium Chloride (Vancocin/NS) 150 ml @ 75 mls/hr Q12H IVPB Last administered on 11/24/16 09:42; Admin Dose 75 MLS/HR; Start 11/15/16 at 10: 00 Acetaminophen (Tylenol Liquid) 650 mg Q6H PRN PEG PAIN AND OR ELEVATED TEMP Last administered on 11/20/16 10:46; Admin Dose 650 MG; Start 11/16/16 at 20:04 Alprazolam (Xanax) 0.5 mg Q12H PRN PEG ANXIETY Last administered on 11/20/16 05 :30; Admin Dose 0.5 MG; Start 11/16/16 at 20:30 Ascorbic Acid (Vitamin C) 500 mg BID PEG Last administered on 11/24/16 12:41; Admin Dose 500 MG; Start 11/16/16 at 21:00 Atorvastatin Calcium (Lipitor) 20 mg QHS PEG Last administered on 11/23/16 20: 58; Admin Dose 20 MG; Start 11/16/16 at 21:00 Diazepam (Valium) 10 mg DAILY PEG Last administered on 11/24/16 09:41; Admin Dose 10 MG; Start 11/17/16 at 09:00 Duloxetine HCl (Cymbalta) 20 mg DAILY PEG Last administered on 11/24/16 09:40; Admin Dose 20 MG; Start 11/17/16 at 09:00 Fluconazole (Diflucan) 100 mg DAILY PEG Last administered on 11/24/16 09:41; Admin Dose 100 MG; Start 11/17/16 at 09:00 Lactobacillus Acidophilus (Florajen3 Capsule) 1 each TID PEG Last administered on 11/24/16 09:40; Admin Dose 1 EACH; Start 11/16/16 at 21:00 Metronidazole (Flagyl) 500 mg Q8 PEG Last administered on 11/24/16 05:20; Admin Dose 500 MG; Start 11/16/16 at 22:00 Promethazine HCl/ Codeine (Phenergan/ Codeine) 10 ml BID PRN PEG COUGH Last administered on 11/19/16 15:13; Admin Dose 10 ML; Start 11/16/16 at 20:00 Zolpidem Tartrate (Ambien) 5 mg QHS PRN PEG INSOMNIA; Start 11/16/16 at 20:00 Docusate Sodium (Colace Liquid Cup) 100 mg Q12 PRN GTB CONSTIPATION; Start 11/16 at 20:00 Midodrine (Proamatine) 2.5 mg TID@08,12,17 NGT Last administered on 11/24/16 12 :41; Admin Dose 2.5 MG; Start 11/19/16 at 17:00 Oxycodone HCl 10 mg 10 mg Q4H PO Last administered on 11/24/16 09:41; Admin Dose 10 MG; Start 11/20/16 at 17:30 Sodium Chloride 1,000 ml @ 50 mls/hr Q20H IV Last administered on 11/24/16 00: 30; Admin Dose 50 MLS/HR; Start 11/23/16 at 04:00 Norepinephrine/ Dextrose (Levophed/D5W) 500 ml @ 1.87 mls/hr TITRATE IV Last administered on 11/23/16 10:18; Admin Dose 20.62 MLS/HR; Start 11/23/16 at 09:00 Miscellaneous Information (*Rx Drug Level Order Reminder*) VANCOMYCIN TROUGH LEVEL... ONCE ONCE XX ; Start 11/25/16 at 09:00; Stop 11/25/16 at 09:01 RUBIN MAYEN NP Nov 24, 2016 13:43
--- NOTE | 2016-11-24 15:44 | PN ---
Date/Time of Note Date/Time of Note DATE: 11/24/16 TIME: 15:36 Assessment/Plan VTE Prophylaxis VTE Prophylaxis Intervention: SCD's Lines/Catheters IV [facility] P[facility] Line Central line still needed: Yes Urinary Cath still in place: Yes Reason Cath still needed: urinary retention Assessment/Plan Chief Complaint/Hosp Course Patient is orally intubated on ventilatory support, on levo fed for hemodynamic support, G-tube feeding restarted. Dr. Dozier talk to patient's daughter yesterday regarding possible tracheostomy versus palliative extubation. Patient daughter wants to discuss the matter with other family members over the weekend before she makes a decision. ASSESSMENT AND PLAN: - Status post cardiopulmonary arrest. 2 new ventilatory support ICU care. Dr. Hernandez is following in cardiology consultation. - Septic shock, resolving. Dr. Coleman is following in infectious disease consultation. Continue antibiotics per ID. - Acute respiratory failure. Continue breathing treatment, oxygen supply supplementation and bronchodilators. Dr. Neri is following in pulmonology consultation. - Left lung squamous carcinoma. The patient is not a candidate for chemotherapy. Dr. Calvo is following in oncology consultation. - Chronic obstructive pulmonary disease. Patient with long history of tobacco use. Continue breathing treatment. - Anemia of chronic disease. Continue to monitor hemoglobin and hematocrit. Hemoglobin is 7.7 today, we will transfuse 1 units of packed red blood cells - Dysphagia with G-tube. Continue G-tube feeding, monitor residual. Continue aspiration precautions. - Hypothyroidism. Continue Synthroid. - Acute on chronic pain. - Failure to thrive. Continue sequential compression device for deep venous thrombosis prophylaxis and Prevacid for peptic ulcer disease prophylaxis. Further recommendations based on clinical course. Plan of care discussed with Dr. Dozier. Problems: Exam/Review of Systems Vital Signs Vitals Vital Signs Date Time Temp Pulse Resp B/P Pulse Ox O2 Delivery O2 Flow Rate FiO2 11/24/16 14:45 157 11/24/16 12:15 18 100/69 97 11/24/16 12:00 98.9 Mechanical Ventilator 11/24/16 11:40 35 11/22/16 20:23 15.0 Intake and Output 11/23/16 11/23/16 11/24/16 14:59 22:59 06:59 Intake Total 702.485 ml 793.75 ml 832.50 ml Output Total 440 ml 465 ml 510 ml Balance 262.485 ml 328.75 ml 322.50 ml Exam Constitutional: frail Head: normocephalic ENMT: other (Orally intubated) Respiratory: diminished breath sounds Cardiovascular: nl pulses Gastrointestinal: non-tender, other (G-tube), soft Extremities: normal pulses Skin: other (Multiple wounds) Results Result Diagram: 11/24/16 0500 11/24/16 0500 Results 24 hrs Laboratory Tests Test 11/24/16 05:00 White Blood Count 20.8 H Red Blood Count 2.86 L Hemoglobin 7.7 L Hematocrit 25.3 L Mean Corpuscular Volume 88.5 Mean Corpuscular Hemoglobin 26.9 L Mean Corpuscular Hemoglobin Concent 30.4 L Red Cell Distribution Width 17.6 H Platelet Count 488 H Mean Platelet Volume 9.3 Neutrophils % 77.7 H Lymphocytes % 9.1 L Monocytes % 10.2 Eosinophils % 1.3 Basophils % 0.5 Nucleated Red Blood Cells % 0.0 Neutrophils # 16.1 H Lymphocytes # 1.9 Monocytes # 2.1 H Eosinophils # 0.3 Basophils # 0.1 Nucleated Red Blood Cells # 0.0 Sodium Level 135 Potassium Level 4.3 Chloride Level 97 Carbon Dioxide Level 33 H Anion Gap 9 Blood Urea Nitrogen 16 Creatinine 0.52 Glucose Level 65 #L Calcium Level 8.6 Total Bilirubin 0.0 L Direct Bilirubin 0.00 Indirect Bilirubin 0.0 Aspartate Amino Transf (AST/SGOT) 39 Alanine Aminotransferase (ALT/SGPT) 34 Alkaline Phosphatase 205 H Total Protein 6.9 Albumin 2.6 L Globulin 4.30 H Albumin/Globulin Ratio 0.60 Medications Medications Current Medications Ondansetron HCl (Zofran Inj) 4 mg Q6 PRN IV NAUSEA AND/OR VOMITING; Start 09/26 at 22:30 Collagenase (Santyl) 1 applic DAILY TOP Last administered on 11/23/16 08:20; Admin Dose 1 APPLIC; Start 09/27/16 at 09:00 Collagenase (Santyl) 1 applic PRN PRN TOP SOILED OR DISLODGED DRESSING; Start 09/27/16 at 05:00 Lansoprazole (Prevacid) 30 mg DAILY@06 GTB Last administered on 11/24/16 05:20 ; Admin Dose 30 MG; Start 09/28/16 at 06:00 Cromolyn Sodium (Nasalcrom) 1 spray QID NASAL Last administered on 11/24/16 13: 42; Admin Dose 1 SPRAY; Start 09/29/16 at 11:02 Phenol (Cepastat Lozenge) 1 lozenge Q2H PRN MT SORE THROAT Last administered on 11/02/16 01:02; Admin Dose 1 LOZENGE; Start 10/01/16 at 19:00 IV Flush (NS 10 ml) 10 ml PRN PRN IV IV PROTOCOL Last administered on 11/17/16 03:20; Admin Dose 10 ML; Start 10/02/16 at 19:00 Hydromorphone HCl (Dilaudid) 0.5 mg Q4H PRN IV PAIN Last administered on 21:12; Admin Dose 0.5 MG; Start 10/06/16 at 18:30 Potassium Chloride 20 meq 20 meq DAILY GTB Last administered on 11/24/16 12:41 ; Admin Dose 20 MEQ; Start 10/30/16 at 12:00 Meropenem 100 ml @ 200 mls/hr Q8 IVPB Last administered on 11/24/16 13:41; Admin Dose 200 MLS/HR; Start 11/14/16 at 14:00 Vancomycin HCl/ Sodium Chloride (Vancocin/NS) 150 ml @ 75 mls/hr Q12H IVPB Last administered on 11/24/16 09:42; Admin Dose 75 MLS/HR; Start 11/15/16 at 10: 00 Acetaminophen (Tylenol Liquid) 650 mg Q6H PRN PEG PAIN AND OR ELEVATED TEMP Last administered on 11/20/16 10:46; Admin Dose 650 MG; Start 11/16/16 at 20:04 Alprazolam (Xanax) 0.5 mg Q12H PRN PEG ANXIETY Last administered on 11/20/16 05 :30; Admin Dose 0.5 MG; Start 11/16/16 at 20:30 Ascorbic Acid (Vitamin C) 500 mg BID PEG Last administered on 11/24/16 12:41; Admin Dose 500 MG; Start 11/16/16 at 21:00 Atorvastatin Calcium (Lipitor) 20 mg QHS PEG Last administered on 11/23/16 20: 58; Admin Dose 20 MG; Start 11/16/16 at 21:00 Diazepam (Valium) 10 mg DAILY PEG Last administered on 11/24/16 09:41; Admin Dose 10 MG; Start 11/17/16 at 09:00 Duloxetine HCl (Cymbalta) 20 mg DAILY PEG Last administered on 11/24/16 09:40; Admin Dose 20 MG; Start 11/17/16 at 09:00 Fluconazole (Diflucan) 100 mg DAILY PEG Last administered on 11/24/16 09:41; Admin Dose 100 MG; Start 11/17/16 at 09:00 Lactobacillus Acidophilus (Florajen3 Capsule) 1 each TID PEG Last administered on 11/24/16 13:41; Admin Dose 1 EACH; Start 11/16/16 at 21:00 Metronidazole (Flagyl) 500 mg Q8 PEG Last administered on 11/24/16 13:41; Admin Dose 500 MG; Start 11/16/16 at 22:00 Promethazine HCl/ Codeine (Phenergan/ Codeine) 10 ml BID PRN PEG COUGH Last administered on 11/19/16 15:13; Admin Dose 10 ML; Start 11/16/16 at 20:00 Zolpidem Tartrate (Ambien) 5 mg QHS PRN PEG INSOMNIA; Start 11/16/16 at 20:00 Docusate Sodium (Colace Liquid Cup) 100 mg Q12 PRN GTB CONSTIPATION; Start 11/16 at 20:00 Midodrine (Proamatine) 2.5 mg TID@08,12,17 NGT Last administered on 11/24/16 12 :41; Admin Dose 2.5 MG; Start 11/19/16 at 17:00 Oxycodone HCl 10 mg 10 mg Q4H PO Last administered on 11/24/16 13:42; Admin Dose 10 MG; Start 11/20/16 at 17:30 Sodium Chloride 1,000 ml @ 50 mls/hr Q20H IV Last administered on 11/24/16 00: 30; Admin Dose 50 MLS/HR; Start 11/23/16 at 04:00 Norepinephrine/ Dextrose (Levophed/D5W) 500 ml @ 1.87 mls/hr TITRATE IV Last administered on 11/24/16 13:50; Admin Dose 13.12 MLS/HR; Start 11/23/16 at 09:00 Miscellaneous Information (*Rx Drug Level Order Reminder*) VANCOMYCIN TROUGH LEVEL... ONCE ONCE XX ; Start 11/25/16 at 09:00; Stop 11/25/16 at 09:01 REBECCA ISLAS Nov 24, 2016 15:44
--- NOTE | 2016-11-24 17:46 | CONS ---
Date/Time of Note Date/Time of Note DATE: 11/24/16 TIME: 17:45 Assessment/Plan Assessment/Plan Additional Assessment/Plan 1. acute on chronic resp failure intubated on ventilator 2. PEA s/p resuscitation 3. Hyponatremia multifactorial 4. Pneumonia. 3. Lung cancer. 4. History of Clostridium difficile colitis and recurrent urinary tract infection. 5. Unstageable sacral wound, status post debridement with wound VAC application. PLAN: conitnue IV abx, ID following makign good urine will conitnue to follow up, electrolytes stable today Consultation Date/Type/Reason Admit Date/Time Sep 26, 2016 at 20:07 Type of Consultation: NEPHROLOGY Referring Provider: DRE LOBATO MD 24 HR Interval Summary Free Text/Dictation remains intubated, BP labile Exam/Review of Systems Vital Signs Vitals Vital Signs Date Time Temp Pulse Resp B/P Pulse Ox O2 Delivery O2 Flow Rate FiO2 11/24/16 17:00 126 22 116/90 86 Mechanical Ventilator 11/24/16 16:00 100.0 11/24/16 11:40 35 11/22/16 20:23 15.0 Intake and Output 11/23/16 11/23/16 11/24/16 15:00 23:00 07:00 Intake Total 796.86 ml 715.00 ml 800.00 ml Output Total 415 ml 490 ml 450 ml Balance 381.86 ml 225.00 ml 350.00 ml Exam Intubated, no apparent distress, sleeping but arousable Head: normocephalic ENMT: intubated Respiratory: other (Coarse breath sounds bilaterally, decrease at the bases, no wheezing) Cardiovascular: other (S1-S2 heard), regular rate and rhythm Gastrointestinal: bowel sounds, non-tender, other (No grimacing with palpation) , soft Extremities: edema (Trace) Results Result Diagram: 11/24/16 0500 11/24/16 0500 Results 24 hrs Laboratory Tests Test 11/24/16 05:00 White Blood Count 20.8 H Red Blood Count 2.86 L Hemoglobin 7.7 L Hematocrit 25.3 L Mean Corpuscular Volume 88.5 Mean Corpuscular Hemoglobin 26.9 L Mean Corpuscular Hemoglobin Concent 30.4 L Red Cell Distribution Width 17.6 H Platelet Count 488 H Mean Platelet Volume 9.3 Neutrophils % 77.7 H Lymphocytes % 9.1 L Monocytes % 10.2 Eosinophils % 1.3 Basophils % 0.5 Nucleated Red Blood Cells % 0.0 Neutrophils # 16.1 H Lymphocytes # 1.9 Monocytes # 2.1 H Eosinophils # 0.3 Basophils # 0.1 Nucleated Red Blood Cells # 0.0 Sodium Level 135 Potassium Level 4.3 Chloride Level 97 Carbon Dioxide Level 33 H Anion Gap 9 Blood Urea Nitrogen 16 Creatinine 0.52 Glucose Level 65 #L Calcium Level 8.6 Total Bilirubin 0.0 L Direct Bilirubin 0.00 Indirect Bilirubin 0.0 Aspartate Amino Transf (AST/SGOT) 39 Alanine Aminotransferase (ALT/SGPT) 34 Alkaline Phosphatase 205 H Total Protein 6.9 Albumin 2.6 L Globulin 4.30 H Albumin/Globulin Ratio 0.60 Medications Medications Current Medications Ondansetron HCl (Zofran Inj) 4 mg Q6 PRN IV NAUSEA AND/OR VOMITING; Start 09/26 at 22:30 Collagenase (Santyl) 1 applic DAILY TOP Last administered on 11/23/16 08:20; Admin Dose 1 APPLIC; Start 09/27/16 at 09:00 Collagenase (Santyl) 1 applic PRN PRN TOP SOILED OR DISLODGED DRESSING; Start 09/27/16 at 05:00 Lansoprazole (Prevacid) 30 mg DAILY@06 GTB Last administered on 11/24/16 05:20 ; Admin Dose 30 MG; Start 09/28/16 at 06:00 Cromolyn Sodium (Nasalcrom) 1 spray QID NASAL Last administered on 11/24/16 13: 42; Admin Dose 1 SPRAY; Start 09/29/16 at 11:02 Phenol (Cepastat Lozenge) 1 lozenge Q2H PRN MT SORE THROAT Last administered on 11/02/16 01:02; Admin Dose 1 LOZENGE; Start 10/01/16 at 19:00 IV Flush (NS 10 ml) 10 ml PRN PRN IV IV PROTOCOL Last administered on 11/17/16 03:20; Admin Dose 10 ML; Start 10/02/16 at 19:00 Hydromorphone HCl (Dilaudid) 0.5 mg Q4H PRN IV PAIN Last administered on 21:12; Admin Dose 0.5 MG; Start 10/06/16 at 18:30 Potassium Chloride 20 meq 20 meq DAILY GTB Last administered on 11/24/16 12:41 ; Admin Dose 20 MEQ; Start 10/30/16 at 12:00 Meropenem 100 ml @ 200 mls/hr Q8 IVPB Last administered on 11/24/16 13:41; Admin Dose 200 MLS/HR; Start 11/14/16 at 14:00 Vancomycin HCl/ Sodium Chloride (Vancocin/NS) 150 ml @ 75 mls/hr Q12H IVPB Last administered on 11/24/16 09:42; Admin Dose 75 MLS/HR; Start 11/15/16 at 10: 00 Acetaminophen (Tylenol Liquid) 650 mg Q6H PRN PEG PAIN AND OR ELEVATED TEMP Last administered on 11/20/16 10:46; Admin Dose 650 MG; Start 11/16/16 at 20:04 Alprazolam (Xanax) 0.5 mg Q12H PRN PEG ANXIETY Last administered on 11/20/16 05 :30; Admin Dose 0.5 MG; Start 11/16/16 at 20:30 Ascorbic Acid (Vitamin C) 500 mg BID PEG Last administered on 11/24/16 12:41; Admin Dose 500 MG; Start 11/16/16 at 21:00 Atorvastatin Calcium (Lipitor) 20 mg QHS PEG Last administered on 11/23/16 20: 58; Admin Dose 20 MG; Start 11/16/16 at 21:00 Diazepam (Valium) 10 mg DAILY PEG Last administered on 11/24/16 09:41; Admin Dose 10 MG; Start 11/17/16 at 09:00 Duloxetine HCl (Cymbalta) 20 mg DAILY PEG Last administered on 11/24/16 09:40; Admin Dose 20 MG; Start 11/17/16 at 09:00 Fluconazole (Diflucan) 100 mg DAILY PEG Last administered on 11/24/16 09:41; Admin Dose 100 MG; Start 11/17/16 at 09:00 Lactobacillus Acidophilus (Florajen3 Capsule) 1 each TID PEG Last administered on 11/24/16 13:41; Admin Dose 1 EACH; Start 11/16/16 at 21:00 Metronidazole (Flagyl) 500 mg Q8 PEG Last administered on 11/24/16 13:41; Admin Dose 500 MG; Start 11/16/16 at 22:00 Promethazine HCl/ Codeine (Phenergan/ Codeine) 10 ml BID PRN PEG COUGH Last administered on 11/19/16 15:13; Admin Dose 10 ML; Start 11/16/16 at 20:00 Zolpidem Tartrate (Ambien) 5 mg QHS PRN PEG INSOMNIA; Start 11/16/16 at 20:00 Docusate Sodium (Colace Liquid Cup) 100 mg Q12 PRN GTB CONSTIPATION; Start 11/16 at 20:00 Midodrine (Proamatine) 2.5 mg TID@08,12,17 NGT Last administered on 11/24/16 12 :41; Admin Dose 2.5 MG; Start 11/19/16 at 17:00 Oxycodone HCl 10 mg 10 mg Q4H PO Last administered on 11/24/16 13:42; Admin Dose 10 MG; Start 11/20/16 at 17:30 Sodium Chloride 1,000 ml @ 50 mls/hr Q20H IV Last administered on 11/24/16 00: 30; Admin Dose 50 MLS/HR; Start 11/23/16 at 04:00 Norepinephrine/ Dextrose (Levophed/D5W) 500 ml @ 1.87 mls/hr TITRATE IV Last administered on 11/24/16 13:50; Admin Dose 13.12 MLS/HR; Start 11/23/16 at 09:00 Miscellaneous Information (*Rx Drug Level Order Reminder*) VANCOMYCIN TROUGH LEVEL... ONCE ONCE XX ; Start 11/25/16 at 09:00; Stop 11/25/16 at 09:01 DIONNE SAUCEDA MD Nov 24, 2016 17:46
[2016-11-24] MEDS: ATORVASTATIN 20 MG TAB PEG SCH (20:14)
--- NOTE | 2016-11-24 23:38 | CONS ---
Date/Time of Note Date/Time of Note DATE: 11/24/16 TIME: 23:37 Assessment/Plan Assessment/Plan Chief Complaint/Hosp Course Left lung squamous carcinoma. The patient is not a candidate for chemotherapy. Anemia of chronic disease. post 8 u prbc monitor blood count closely transfuse as needed to keep HB above 8 Acute respiratory insufficiency requiring BiPAP. Acute shock, septic versus hypovolemic. tachycardia with episode of SVT. Chronic obstructive pulmonary disease. Dysphagia with G-tube. Continue current G-tube feeding. Hypothyroidism. Continue Synthroid. Problems: Consultation Date/Type/Reason Admit Date/Time Sep 26, 2016 at 20:07 Initial Consult Date 10/19/16 Type of Consultation: hemeon Referring Provider: DRE LOBATO MD 24 HR Interval Summary Free Text/Dictation all noted on vent no new events Exam/Review of Systems Vital Signs Vitals Vital Signs Date Time Temp Pulse Resp B/P Pulse Ox O2 Delivery O2 Flow Rate FiO2 11/24/16 22:15 113 18 96/73 97 Mechanical Ventilator 11/24/16 22:05 35 11/24/16 19:30 100.2 11/22/16 20:23 15.0 Intake and Output 11/23/16 11/23/16 11/24/16 15:00 23:00 07:00 Intake Total 796.86 ml 715.00 ml 800.00 ml Output Total 415 ml 490 ml 450 ml Balance 381.86 ml 225.00 ml 350.00 ml Exam Constitutional: alert Head: atraumatic, normocephalic Neck: supple Respiratory: diminished breath sounds, other (Rhonchi bilaterally) Cardiovascular: nl pulses Gastrointestinal: non-tender, other (G-tube), soft Extremities: normal pulses Skin: other (Multiple wounds) Results Result Diagram: 11/24/16 0500 11/24/16 0500 Results 24 hrs Laboratory Tests Test 11/24/16 05:00 White Blood Count 20.8 H Red Blood Count 2.86 L Hemoglobin 7.7 L Hematocrit 25.3 L Mean Corpuscular Volume 88.5 Mean Corpuscular Hemoglobin 26.9 L Mean Corpuscular Hemoglobin Concent 30.4 L Red Cell Distribution Width 17.6 H Platelet Count 488 H Mean Platelet Volume 9.3 Neutrophils % 77.7 H Lymphocytes % 9.1 L Monocytes % 10.2 Eosinophils % 1.3 Basophils % 0.5 Nucleated Red Blood Cells % 0.0 Neutrophils # 16.1 H Lymphocytes # 1.9 Monocytes # 2.1 H Eosinophils # 0.3 Basophils # 0.1 Nucleated Red Blood Cells # 0.0 Sodium Level 135 Potassium Level 4.3 Chloride Level 97 Carbon Dioxide Level 33 H Anion Gap 9 Blood Urea Nitrogen 16 Creatinine 0.52 Glucose Level 65 #L Calcium Level 8.6 Total Bilirubin 0.0 L Direct Bilirubin 0.00 Indirect Bilirubin 0.0 Aspartate Amino Transf (AST/SGOT) 39 Alanine Aminotransferase (ALT/SGPT) 34 Alkaline Phosphatase 205 H Total Protein 6.9 Albumin 2.6 L Globulin 4.30 H Albumin/Globulin Ratio 0.60 Medications Medications Current Medications Ondansetron HCl (Zofran Inj) 4 mg Q6 PRN IV NAUSEA AND/OR VOMITING; Start 09/26 at 22:30 Collagenase (Santyl) 1 applic DAILY TOP Last administered on 11/23/16 08:20; Admin Dose 1 APPLIC; Start 09/27/16 at 09:00 Collagenase (Santyl) 1 applic PRN PRN TOP SOILED OR DISLODGED DRESSING; Start 09/27/16 at 05:00 Lansoprazole (Prevacid) 30 mg DAILY@06 GTB Last administered on 11/24/16 05:20 ; Admin Dose 30 MG; Start 09/28/16 at 06:00 Cromolyn Sodium (Nasalcrom) 1 spray QID NASAL Last administered on 11/24/16 20: 14; Admin Dose 1 SPRAY; Start 09/29/16 at 11:02 Phenol (Cepastat Lozenge) 1 lozenge Q2H PRN MT SORE THROAT Last administered on 11/02/16 01:02; Admin Dose 1 LOZENGE; Start 10/01/16 at 19:00 IV Flush (NS 10 ml) 10 ml PRN PRN IV IV PROTOCOL Last administered on 11/17/16 03:20; Admin Dose 10 ML; Start 10/02/16 at 19:00 Hydromorphone HCl (Dilaudid) 0.5 mg Q4H PRN IV PAIN Last administered on 21:12; Admin Dose 0.5 MG; Start 10/06/16 at 18:30 Potassium Chloride 20 meq 20 meq DAILY GTB Last administered on 11/24/16 12:41 ; Admin Dose 20 MEQ; Start 10/30/16 at 12:00 Meropenem 100 ml @ 200 mls/hr Q8 IVPB Last administered on 11/24/16 21:46; Admin Dose 200 MLS/HR; Start 11/14/16 at 14:00 Vancomycin HCl/ Sodium Chloride (Vancocin/NS) 150 ml @ 75 mls/hr Q12H IVPB Last administered on 11/24/16 21:47; Admin Dose 75 MLS/HR; Start 11/15/16 at 10: 00 Acetaminophen (Tylenol Liquid) 650 mg Q6H PRN PEG PAIN AND OR ELEVATED TEMP Last administered on 11/20/16 10:46; Admin Dose 650 MG; Start 11/16/16 at 20:04 Alprazolam (Xanax) 0.5 mg Q12H PRN PEG ANXIETY Last administered on 11/20/16 05 :30; Admin Dose 0.5 MG; Start 11/16/16 at 20:30 Ascorbic Acid (Vitamin C) 500 mg BID PEG Last administered on 11/24/16 20:15; Admin Dose 500 MG; Start 11/16/16 at 21:00 Atorvastatin Calcium (Lipitor) 20 mg QHS PEG Last administered on 11/24/16 20: 14; Admin Dose 20 MG; Start 11/16/16 at 21:00 Diazepam (Valium) 10 mg DAILY PEG Last administered on 11/24/16 09:41; Admin Dose 10 MG; Start 11/17/16 at 09:00 Duloxetine HCl (Cymbalta) 20 mg DAILY PEG Last administered on 11/24/16 09:40; Admin Dose 20 MG; Start 11/17/16 at 09:00 Fluconazole (Diflucan) 100 mg DAILY PEG Last administered on 11/24/16 09:41; Admin Dose 100 MG; Start 11/17/16 at 09:00 Lactobacillus Acidophilus (Florajen3 Capsule) 1 each TID PEG Last administered on 11/24/16 20:14; Admin Dose 1 EACH; Start 11/16/16 at 21:00 Metronidazole (Flagyl) 500 mg Q8 PEG Last administered on 11/24/16 21:47; Admin Dose 500 MG; Start 11/16/16 at 22:00 Promethazine HCl/ Codeine (Phenergan/ Codeine) 10 ml BID PRN PEG COUGH Last administered on 11/19/16 15:13; Admin Dose 10 ML; Start 11/16/16 at 20:00 Zolpidem Tartrate (Ambien) 5 mg QHS PRN PEG INSOMNIA; Start 11/16/16 at 20:00 Docusate Sodium (Colace Liquid Cup) 100 mg Q12 PRN GTB CONSTIPATION; Start 11/16 at 20:00 Oxycodone HCl 10 mg 10 mg Q4H PO Last administered on 11/24/16 21:46; Admin Dose 10 MG; Start 11/20/16 at 17:30 Sodium Chloride 1,000 ml @ 50 mls/hr Q20H IV Last administered on 11/24/16 20: 14; Admin Dose 50 MLS/HR; Start 11/23/16 at 04:00 Norepinephrine/ Dextrose (Levophed/D5W) 500 ml @ 1.87 mls/hr TITRATE IV Last administered on 11/24/16 13:50; Admin Dose 13.12 MLS/HR; Start 11/23/16 at 09:00 Miscellaneous Information (*Rx Drug Level Order Reminder*) VANCOMYCIN TROUGH LEVEL... ONCE ONCE XX ; Start 11/25/16 at 09:00; Stop 11/25/16 at 09:01 Midodrine (Proamatine) 2.5 mg TID@08,,17 NGT Last administered on 11/24/16 20 :13; Admin Dose 2.5 MG; Start 11/24/16 at 18:33 DYLLAN CARRION MD Nov 24, 2016 23:38
[2016-11-25] VITALS (105 sets, daily range): BP systolic 86–140; BP diastolic 62–97; PULSE 90–172; RESP 18–23
[2016-11-25] MEDS: oxyCODONE 5 MG TAB PO SCH ×6 (01:50→21:41)
[2016-11-25] MEDS: LEVOTHYROXINE 125 MCG TAB PEG SCH (06:06)
[2016-11-25] MEDS: metroNIDAZOLE 500 MG TAB PEG SCH ×3 (06:06→21:41)
[2016-11-25] MEDS: LANSOPRAZOLE 30 MG CAP GTB SCH (06:06)
[2016-11-25] MEDS: MEROPENEM 500 MG/100 ML (PMX) 100 ML IVPB SCH ×3 (06:06→21:41)
[2016-11-25 06:31] LABS: ADD SCAN DIFF NO
[2016-11-25 06:34] LABS: ABNORMAL IP MESSAGE 1; BASOPHIL # 0.1 10^3/ul (0.0-0.1); BASOPHILS % 0.5 % (0.0-2.0); EOSINOPHILS # 0.5 10^3/ul (0.0-0.5); EOSINOPHILS % 2.8 % (0.0-7.0); HEMOGLOBIN 8.3 g/dl (12.0-16.0); LYMPHOCYTES # 2.5 10^3/ul (0.8-2.9); LYMPHOCYTES % 13.9 % (15.0-51.0); MEAN CORPUSCULAR HEMOGLOBIN 25.9 pg (29.0-33.0); MEAN CORPUSCULAR HGB CONC 29.6 g/dl (32.0-37.0); MEAN CORPUSCULAR VOLUME 87.5 fl (82.0-101.0); MEAN PLATELET VOLUME 9.1 fl (7.4-10.4); MONOCYTE # 2.2 10^3/ul (0.3-0.9); MONOCYTES % 11.9 % (0.0-11.0); NEUTROPHIL # 12.6 10^3/ul (1.6-7.5); NEUTROPHILS % 69.8 % (39.0-77.0); PLATELET COUNT 483 10^3/UL (140-415); RED CELL DISTRIBUTION WIDTH 17.5 % (11.5-14.5); WHITE BLOOD COUNT 18.1 10^3/ul (4.8-10.8)
[2016-11-25 06:56] LABS: CALCIUM 8.8 mg/dl (8.4-10.2); CREATININE 0.47 mg/dl (0.44-1.00); MAGNESIUM 1.5 mg/dl (1.7-2.5); PHOSPHORUS 3.5 mg/dl (2.5-4.9); POTASSIUM 3.9 mmol/L (3.5-5.1)
[2016-11-25] MEDS: COLLAGENASE 30 GM TUBE TOP SCH (07:31)
[2016-11-25] MEDS: DULOXETINE 20 MG CAP DR PEG SCH (08:58)
[2016-11-25] MEDS: ASCORBIC ACID 500 MG TAB PEG SCH ×2 (08:58→20:46)
[2016-11-25] MEDS: POTASSIUM CHLORIDE 20 MEQ POWDER FOR ORAL SOLN GTB SCH (08:58)
[2016-11-25] MEDS: FLUCONAZOLE 100 MG TAB PEG SCH (08:59)
[2016-11-25] MEDS: MIDODRINE 2.5 MG TAB NGT SCH ×3 (08:59→18:58)
[2016-11-25] MEDS: DIAZEPAM 5 MG TAB PEG SCH (08:59)
[2016-11-25] MEDS: L ACIDOPHIL/B LACTIS/B LONGUM CAPSULE PEG SCH ×3 (09:00→20:46)
[2016-11-25] MEDS: CROMOLYN 4% 26ML NAS INH NASAL SCH ×4 (09:07→20:46)
--- NOTE | 2016-11-25 10:35 | RADRPT ---
PROCEDURE: XR Chest. CLINICAL INDICATION: Congestive heart failure. Pneumonia. TECHNIQUE: Single frontal chest x-ray. COMPARISON: 11/23/2016 FINDINGS: Endotracheal tube and right arm PICC line in place unchanged. There is dense consolidation of the l eft lower lung unchanged since previous. Cardiomegaly with hilar vascular congestion is present. . Calcific atherosclerosis of the aorta is present.. Right basilar atelectasis is unchanged.. The os seous structures are intact. IMPRESSION: Tubes and lines unchanged. Stable left lower lung consolidation. Cardiomegaly with hilar vascular congestion and right basilar atelectasis unchanged.. RPTAT: QQ .Sergio Sylvester MD, MD Date Time Electronically viewed and signed by .Sergio Sylvester MD, on 11/25/2016 10:35 .L/
--- NOTE | 2016-11-25 10:51 | PN ---
Date/Time of Note Date/Time of Note DATE: 11/25/16 TIME: 10:50 Assessment/Plan VTE Prophylaxis VTE Prophylaxis Intervention: other Lines/Catheters IV C[facility]ter Type ([facility] PICC Line Central line still needed: Yes Urinary Cath still in place: Yes Reason Cath still needed: skin wounds contaminated by urine Assessment/Plan Chief Complaint/Hosp Course - Status post cardiopulmonary arrest. 2 new ventilatory support ICU care. Dr. Hernandez is following in cardiology consultation. - Septic shock, resolving. Dr. Coleman is following in infectious disease consultation. Continue antibiotics per ID. - Acute respiratory failure. Continue breathing treatment, oxygen supply supplementation and bronchodilators. Dr. Neri is following in pulmonology consultation. - Left lung squamous carcinoma. The patient is not a candidate for chemotherapy. Dr. Calvo is following in oncology consultation. - Chronic obstructive pulmonary disease. Patient with long history of tobacco use. Continue breathing treatment. - Anemia of chronic disease. Continue to monitor hemoglobin and hematocrit. Hemoglobin is 7.7 today, we will transfuse 1 units of packed red blood cells - Dysphagia with G-tube. Continue G-tube feeding, monitor residual. Continue aspiration precautions. - Hypothyroidism. Continue Synthroid. - Acute on chronic pain. - Failure to thrive. Problems: Subjective 24 Hr Interval Summary Free Text/Dictation Patient is intubated but opens eyes to voice. Exam/Review of Systems Vital Signs Vitals Vital Signs Date Time Temp Pulse Resp B/P Pulse Ox O2 Delivery O2 Flow Rate FiO2 11/25/16 10:15 108 19 114/79 99 11/25/16 10:00 Mechanical Ventilator 11/25/16 08:00 98.3 11/25/16 05:30 30 11/22/16 20:23 15.0 Intake and Output 11/24/16 11/24/16 11/25/16 15:00 23:00 07:00 Intake Total 1080.69 ml 1274.96 ml 1071.84 ml Output Total 345 ml 750 ml 410 ml Balance 735.69 ml 524.96 ml 661.84 ml Exam Constitutional: frail, well developed Head: atraumatic, normocephalic Neck: supple Respiratory: diminished breath sounds Cardiovascular: regular rate and rhythm Gastrointestinal: non-tender, soft Extremities: normal pulses Results Result Diagram: 11/25/16 0533 11/25/1633 Results 24 hrs Laboratory Tests Test 11/25/16 05:33 White Blood Count 18.1 H Red Blood Count 3.20 L Hemoglobin 8.3 L Hematocrit 28.0 L Mean Corpuscular Volume 87.5 Mean Corpuscular Hemoglobin 25.9 L Mean Corpuscular Hemoglobin Concent 29.6 L Red Cell Distribution Width 17.5 H Platelet Count 483 H Mean Platelet Volume 9.1 Neutrophils % 69.8 Lymphocytes % 13.9 L Monocytes % 11.9 H Eosinophils % 2.8 Basophils % 0.5 Nucleated Red Blood Cells % 0.0 Neutrophils # 12.6 H Lymphocytes # 2.5 Monocytes # 2.2 H Eosinophils # 0.5 Basophils # 0.1 Nucleated Red Blood Cells # 0.0 Sodium Level 136 Potassium Level 3.9 Chloride Level 98 Carbon Dioxide Level 31 Anion Gap 11 Blood Urea Nitrogen 15 Creatinine 0.47 Glucose Level 119 # Calcium Level 8.8 Phosphorus Level 3.5 Magnesium Level 1.5 L Medications Medications Current Medications Ondansetron HCl (Zofran Inj) 4 mg Q6 PRN IV NAUSEA AND/OR VOMITING; Start 09/26 at 22:30 Collagenase (Santyl) 1 applic DAILY TOP Last administered on 11/23/16 08:20; Admin Dose 1 APPLIC; Start 09/27/16 at 09:00 Collagenase (Santyl) 1 applic PRN PRN TOP SOILED OR DISLODGED DRESSING; Start 09/27/16 at 05:00 Lansoprazole (Prevacid) 30 mg DAILY@06 GTB Last administered on 11/25/16 06:06 ; Admin Dose 30 MG; Start 09/28/16 at 06:00 Cromolyn Sodium (Nasalcrom) 1 spray QID NASAL Last administered on 11/25/16 09 :07; Admin Dose 1 SPRAY; Start 09/29/16 at 11:02 Phenol (Cepastat Lozenge) 1 lozenge Q2H PRN MT SORE THROAT Last administered on 11/02/16 01:02; Admin Dose 1 LOZENGE; Start 10/01/16 at 19:00 IV Flush (NS 10 ml) 10 ml PRN PRN IV IV PROTOCOL Last administered on 11/17/16 03:20; Admin Dose 10 ML; Start 10/02/16 at 19:00 Hydromorphone HCl (Dilaudid) 0.5 mg Q4H PRN IV PAIN Last administered on 21:12; Admin Dose 0.5 MG; Start 10/06/16 at 18:30 Potassium Chloride 20 meq 20 meq DAILY GTB Last administered on 11/25/16 08:58 ; Admin Dose 20 MEQ; Start 10/30/16 at 12:00 Meropenem 100 ml @ 200 mls/hr Q8 IVPB Last administered on 11/25/16 06:06; Admin Dose 200 MLS/HR; Start 11/14/16 at 14:00 Vancomycin HCl/ Sodium Chloride (Vancocin/NS) 150 ml @ 75 mls/hr Q12H IVPB Last administered on 11/24/16 21:47; Admin Dose 75 MLS/HR; Start 11/15/16 at 10: 00 Acetaminophen (Tylenol Liquid) 650 mg Q6H PRN PEG PAIN AND OR ELEVATED TEMP Last administered on 11/20/16 10:46; Admin Dose 650 MG; Start 11/16/16 at 20:04 Alprazolam (Xanax) 0.5 mg Q12H PRN PEG ANXIETY Last administered on 11/20/16 05 :30; Admin Dose 0.5 MG; Start 11/16/16 at 20:30 Ascorbic Acid (Vitamin C) 500 mg BID PEG Last administered on 11/25/16 08:58; Admin Dose 500 MG; Start 11/16/16 at 21:00 Atorvastatin Calcium (Lipitor) 20 mg QHS PEG Last administered on 11/24/16 20: 14; Admin Dose 20 MG; Start 11/16/16 at 21:00 Diazepam (Valium) 10 mg DAILY PEG Last administered on 11/25/16 08:59; Admin Dose 10 MG; Start 11/17/16 at 09:00 Duloxetine HCl (Cymbalta) 20 mg DAILY PEG Last administered on 11/25/16 08:58 ; Admin Dose 20 MG; Start 11/17/16 at 09:00 Fluconazole (Diflucan) 100 mg DAILY PEG Last administered on 11/25/16 08:59; Admin Dose 100 MG; Start 11/17/16 at 09:00 Lactobacillus Acidophilus (Florajen3 Capsule) 1 each TID PEG Last administered on 11/25/16 09:00; Admin Dose 1 EACH; Start 11/16/16 at 21:00 Metronidazole (Flagyl) 500 mg Q8 PEG Last administered on 11/25/16 06:06; Admin Dose 500 MG; Start 11/16/16 at 22:00 Promethazine HCl/ Codeine (Phenergan/ Codeine) 10 ml BID PRN PEG COUGH Last administered on 11/19/16 15:13; Admin Dose 10 ML; Start 11/16/16 at 20:00 Zolpidem Tartrate (Ambien) 5 mg QHS PRN PEG INSOMNIA; Start 11/16/16 at 20:00 Docusate Sodium (Colace Liquid Cup) 100 mg Q12 PRN GTB CONSTIPATION; Start 11/16 at 20:00 Oxycodone HCl 10 mg 10 mg Q4H PO Last administered on 11/25/16 08:58; Admin Dose 10 MG; Start 11/20/16 at 17:30 Sodium Chloride 1,000 ml @ 50 mls/hr Q20H IV Last administered on 11/24/16 20: 14; Admin Dose 50 MLS/HR; Start 11/23/16 at 04:00 Norepinephrine/ Dextrose (Levophed/D5W) 500 ml @ 1.87 mls/hr TITRATE IV Last administered on 11/24/16 13:50; Admin Dose 13.12 MLS/HR; Start 11/23/16 at 09:00 Midodrine (Proamatine) 2.5 mg TID@08,12,17 NGT Last administered on 11/25/16 08:59; Admin Dose 2.5 MG; Start 11/24/16 at 18:33 MICHAEL HOROWITZ Nov 25, 2016 10:51
[2016-11-25] MEDS: VANCOMYCIN 750 MG in SOD CHLORIDE 0.9% 150 ML IVPB SCH ×2 (11:13→11:20)
--- NOTE | 2016-11-25 13:43 | CONS ---
Date/Time of Note Date/Time of Note DATE: 11/25/16 TIME: 13:01 Assessment/Plan Assessment/Plan Additional Assessment/Plan - Hypomagnesium- relet with Mag Sulphate 1 gm x1 today,1.5. am Mag level - Hyponatremia, likely secondary to hypovolemic hyponatremia- resolved - Status post acute kidney injury on chronic kidney disease due to systemic inflammatory response syndrome. - Systemic inflammatory response syndrome.- ID follows - History of recurrent polymicrobial urinary tract infections. - History of dementia. - History of previous cerebrovascular accident. - History of chronic obstructive pulmonary disease, recently had acute respiratory failure secondary to chronic obstructive pulmonary disease exacerbation. - History of urinary retention with a chronic George catheter in place. 9. Chronic debility with cachexia. 10. Multiple decubitus ulcers with a history of debridement. 11. History of degenerative joint disease of spine. 12. History of hypertension and hypertensive heart disease with mild to moderate concentric left ventricular hypertrophy and echocardiogram with diastolic dysfunction stage I. PLAN: continue current IVF, wound vac in place Na 136, baseline Na around 130 (if continues to run baseline low Na then we will start Tolvaptan vs Na chloride table) will follow up Further recommendations depend upon patient's clinical course. Plan of care Dr Rebecca Zapata /staff Consultation Date/Type/Reason Admit Date/Time Sep 26, 2016 at 20:07 Initial Consult Date 10/19/16 Type of Consultation: [facility] Referring Provider: DRE LOBATO MD 24 HR Interval Summary Free Text/Dictation open eyes, staff trying to off her from Levo but not successful. family at bed side- all Qs answered. -Levofed - 6 mcg/hr - UO - 1.5 - Cr- 0.47 - Mag = 1.5- relet mag, am Mag level - slightly febrile- ID follows Dw staff Subjective hx not possible: pt non-verbal, pt critical Constitutional: requiring IVF, requiring O2 Exam/Review of Systems Vital Signs Vitals Vital Signs Date Time Temp Pulse Resp B/P Pulse Ox O2 Delivery O2 Flow Rate FiO2 11/25/16 12:30 109 22 136/95 100 11/25/16 12:00 99.0 Mechanical Ventilator 11/25/16 05:30 30 11/22/16 20:23 15.0 Intake and Output 11/24/16 11/24/16 11/25/16 15:00 23:00 07:00 Intake Total 1080.69 ml 1274.96 ml 1209.96 ml Output Total 345 ml 750 ml 410 ml Balance 735.69 ml 524.96 ml 799.96 ml Exam Constitutional: alert Psych: nl mood/affect Respiratory: clear to auscultation, normal air movement Cardiovascular: nl pulses Gastrointestinal: non-tender, soft Musculoskeletal: muscle weakness Extremities: normal pulses Neurological: lethargic Skin: other Results Result Diagram: 11/25/1653211/25/16 0533 Results 24 hrs Laboratory Tests Test 11/25/16 05:33 11/25/16 09:20 White Blood Count 18.1 H Red Blood Count 3.20 L Hemoglobin 8.3 L Hematocrit 28.0 L Mean Corpuscular Volume 87.5 Mean Corpuscular Hemoglobin 25.9 L Mean Corpuscular Hemoglobin Concent 29.6 L Red Cell Distribution Width 17.5 H Platelet Count 483 H Mean Platelet Volume 9.1 Neutrophils % 69.8 Lymphocytes % 13.9 L Monocytes % 11.9 H Eosinophils % 2.8 Basophils % 0.5 Nucleated Red Blood Cells % 0.0 Neutrophils # 12.6 H Lymphocytes # 2.5 Monocytes # 2.2 H Eosinophils # 0.5 Basophils # 0.1 Nucleated Red Blood Cells # 0.0 Sodium Level 136 Potassium Level 3.9 Chloride Level 98 Carbon Dioxide Level 31 Anion Gap 11 Blood Urea Nitrogen 15 Creatinine 0.47 Glucose Level 119 # Calcium Level 8.8 Phosphorus Level 3.5 Magnesium Level 1.5 L Vancomycin Level Trough 21.4 *H Medications Medications Current Medications Ondansetron HCl (Zofran Inj) 4 mg Q6 PRN IV NAUSEA AND/OR VOMITING; Start 09/26 at 22:30 Collagenase (Santyl) 1 applic DAILY TOP Last administered on 11/23/16 08:20; Admin Dose 1 APPLIC; Start 09/27/16 at 09:00 Collagenase (Santyl) 1 applic PRN PRN TOP SOILED OR DISLODGED DRESSING; Start 09/27/16 at 05:00 Lansoprazole (Prevacid) 30 mg DAILY@06 GTB Last administered on 11/25/16 06:06 ; Admin Dose 30 MG; Start 09/28/16 at 06:00 Cromolyn Sodium (Nasalcrom) 1 spray QID NASAL Last administered on 11/25/16 09 :07; Admin Dose 1 SPRAY; Start 09/29/16 at 11:02 Phenol (Cepastat Lozenge) 1 lozenge Q2H PRN MT SORE THROAT Last administered on 11/02/16 01:02; Admin Dose 1 LOZENGE; Start 10/01/16 at 19:00 IV Flush (NS 10 ml) 10 ml PRN PRN IV IV PROTOCOL Last administered on 11/17/16 03:20; Admin Dose 10 ML; Start 10/02/16 at 19:00 Hydromorphone HCl (Dilaudid) 0.5 mg Q4H PRN IV PAIN Last administered on 21:12; Admin Dose 0.5 MG; Start 10/06/16 at 18:30 Potassium Chloride 20 meq 20 meq DAILY GTB Last administered on 11/25/16 08:58 ; Admin Dose 20 MEQ; Start 10/30/16 at 12:00 Meropenem (Merrem 500 Mg/ 100 ml (Pmx)) 100 ml @ 200 mls/hr Q8 IVPB Last administered on 11/25/16 06:06; Admin Dose 200 MLS/HR; Start 11/14/16 at 14:00 Acetaminophen (Tylenol Liquid) 650 mg Q6H PRN PEG PAIN AND OR ELEVATED TEMP Last administered on 11/20/16 10:46; Admin Dose 650 MG; Start 11/16/16 at 20:04 Alprazolam (Xanax) 0.5 mg Q12H PRN PEG ANXIETY Last administered on 11/20/16 05 :30; Admin Dose 0.5 MG; Start 11/16/16 at 20:30 Ascorbic Acid (Vitamin C) 500 mg BID PEG Last administered on 11/25/16 08:58; Admin Dose 500 MG; Start 11/16/16 at 21:00 Atorvastatin Calcium (Lipitor) 20 mg QHS PEG Last administered on 11/24/16 20: 14; Admin Dose 20 MG; Start 11/16/16 at 21:00 Diazepam (Valium) 10 mg DAILY PEG Last administered on 11/25/16 08:59; Admin Dose 10 MG; Start 11/17/16 at 09:00 Duloxetine HCl (Cymbalta) 20 mg DAILY PEG Last administered on 11/25/16 08:58 ; Admin Dose 20 MG; Start 11/17/16 at 09:00 Fluconazole (Diflucan) 100 mg DAILY PEG Last administered on 11/25/16 08:59; Admin Dose 100 MG; Start 11/17/16 at 09:00 Lactobacillus Acidophilus (Florajen3 Capsule) 1 each TID PEG Last administered on 11/25/16 09:00; Admin Dose 1 EACH; Start 11/16/16 at 21:00 Metronidazole (Flagyl) 500 mg Q8 PEG Last administered on 11/25/16 06:06; Admin Dose 500 MG; Start 11/16/16 at 22:00 Promethazine HCl/ Codeine (Phenergan/ Codeine) 10 ml BID PRN PEG COUGH Last administered on 11/19/16 15:13; Admin Dose 10 ML; Start 11/16/16 at 20:00 Zolpidem Tartrate (Ambien) 5 mg QHS PRN PEG INSOMNIA; Start 11/16/16 at 20:00 Docusate Sodium (Colace Liquid Cup) 100 mg Q12 PRN GTB CONSTIPATION; Start 11/16 at 20:00 Oxycodone HCl 10 mg 10 mg Q4H PO Last administered on 11/25/16 08:58; Admin Dose 10 MG; Start 11/20/16 at 17:30 Sodium Chloride 1,000 ml @ 50 mls/hr Q20H IV Last administered on 11/24/16 20: 14; Admin Dose 50 MLS/HR; Start 11/23/16 at 04:00 Norepinephrine/ Dextrose (Levophed/D5W) 500 ml @ 1.87 mls/hr TITRATE IV Last administered on 11/24/16 13:50; Admin Dose 13.12 MLS/HR; Start 11/23/16 at 09:00 Midodrine 2.5 mg 2.5 mg TID@08,12,17 NGT Last administered on 11/25/16 08:59; Admin Dose 2.5 MG; Start 11/24/16 at 18:33 Vancomycin HCl (Vancocin) 100 ml @ 100 mls/hr Q12H IVPB ; Start 11/25/16 at 18: 00 VIKASH CASTANEDA Nov 25, 2016 13:11
[2016-11-25] MEDS ORDERED: MAGNESIUM SULFATE 1 GM/D5W 100 ML IVPB ONE (14:00)
[2016-11-25] MEDS ORDERED: MAGNESIUM SULFATE 2 GM/50 ML 50 ML IVPB ONE (15:00)
--- NOTE | 2016-11-25 15:46 | PN ---
DATE: 11/25/2016 CARDIOLOGY FOLLOWUP SUBJECTIVE: Discussed with the staff. Rhythm strip was reviewed. The patient remains in sinus rhy thm, sinus tachycardia. Her heart rate remains elevated, but remains in sinus so far. She is still intubated on the vent. Denies any pain to me, in fact. MEDICATIONS: Reviewed as per medication reconciliation, personally reviewed. The patient is on Lev ophed 6 mcg, currently intubated on the vent. PHYSICAL EXAMINATION: VITAL SIGNS: Temperature 99, heart rate of 110, blood pressure currently 111/83, respiration rate o f 30. HEENT: Normocephalic, atraumatic Status post intubation on the vent. CARDIOVASCULAR: Tachycardic, systolic murmur. PULMONARY: With mild diffuse rhonchi. GASTROINTESTINAL: Soft. No rebound or guarding. EXTREMITIES: Positive lower extremity edema. NEUROLOGIC: Awake, responds appropriately. PSYCHIATRIC: Appears to be calm. LABORATORY: Sodium 136, potassium 3.9, BUN of 15, creatinine 0.47, glucose 119. Mag is 1.5. Album in is 2.6. WBC of 18.1, hemoglobin 8.6, platelets of 483. ASSESSMENT AND PLAN: 1. Hypoxemic hypercapnic respiratory failure, status post intubation on the ventilator now. 2. Status post cardiopulmonary arrest, most likely related to pulmonary disease. 3. Status post septic shock. 4. Left lung cancer. 5. History of chronic obstructive pulmonary disease. 6. Pulmonary hypertension. 7. Thyroid disorder. 8. Severe anemia. RECOMMENDATIONS: We will continue with supportive care. Amiodarone was initiated. Vent support wi ll be continued for now. Thyroid supplement will be continued. Most recent TSH and ____ was within normal limits. ICU care will be continued. Antibiotic is managed as per ID's recommendation. Eje ction fraction also has been normal at 55% on the most recent echo. I will replace the electrolytes as needed as well. Dictated By: LAURE SUNG MD AV/SANDER Conf#: [id number] DID#: [id number] CC: DRE LOBATO MD;*EndCC*
--- NOTE | 2016-11-25 15:48 | CONS ---
Date/Time of Note Date/Time of Note DATE: 11/25/16 TIME: 15:45 Consult Date/Type/Reason Admit Date/Time Sep 26, 2016 at 20:07 Initial Consult Date 11/14/16 Type of Consultation: Pulm/CCM Ordering Provider: DRE LOBATO MD Subjective On vent and levophed gtt. Objective Vital Signs Date Time Temp Pulse Resp B/P Pulse Ox O2 Delivery O2 Flow Rate FiO2 11/25/16 12:30 109 22 136/95 100 11/25/16 12:00 99.0 Mechanical Ventilator 11/25/16 05:30 30 11/22/16 20:23 15.0 Intake and Output 11/24/16 11/24/16 11/25/16 15:00 23:00 07:00 Intake Total 1080.69 ml 1274.96 ml 1209.96 ml Output Total 345 ml 750 ml 410 ml Balance 735.69 ml 524.96 ml 799.96 ml Exam HEENT: Dry mucous membranes. ET tube in place CARDIAC: S1, S2, no added sounds or murmurs. CHEST: Diminished air entry bilaterally with rales. ABDOMEN: Soft, nontender. No guarding or rebound. EXTREMITIES: + trace LE edema Results/Medications Result Diagram: 11/25/16 0533 11/25/16 0533 Results 24 hrs Laboratory Tests Test 11/25/16 05:33 11/25/16 09:20 White Blood Count 18.1 H Red Blood Count 3.20 L Hemoglobin 8.3 L Hematocrit 28.0 L Mean Corpuscular Volume 87.5 Mean Corpuscular Hemoglobin 25.9 L Mean Corpuscular Hemoglobin Concent 29.6 L Red Cell Distribution Width 17.5 H Platelet Count 483 H Mean Platelet Volume 9.1 Neutrophils % 69.8 Lymphocytes % 13.9 L Monocytes % 11.9 H Eosinophils % 2.8 Basophils % 0.5 Nucleated Red Blood Cells % 0.0 Neutrophils # 12.6 H Lymphocytes # 2.5 Monocytes # 2.2 H Eosinophils # 0.5 Basophils # 0.1 Nucleated Red Blood Cells # 0.0 Sodium Level 136 Potassium Level 3.9 Chloride Level 98 Carbon Dioxide Level 31 Anion Gap 11 Blood Urea Nitrogen 15 Creatinine 0.47 Glucose Level 119 # Calcium Level 8.8 Phosphorus Level 3.5 Magnesium Level 1.5 L Vancomycin Level Trough 21.4 *H Medications Current Medications Ondansetron HCl (Zofran Inj) 4 mg Q6 PRN IV NAUSEA AND/OR VOMITING; Start 09/26 at 22:30 Collagenase (Santyl) 1 applic DAILY TOP Last administered on 11/23/16 08:20; Admin Dose 1 APPLIC; Start 09/27/16 at 09:00 Collagenase (Santyl) 1 applic PRN PRN TOP SOILED OR DISLODGED DRESSING; Start 09/27/16 at 05:00 Lansoprazole (Prevacid) 30 mg DAILY@06 GTB Last administered on 11/25/16 06:06 ; Admin Dose 30 MG; Start 09/28/16 at 06:00 Cromolyn Sodium (Nasalcrom) 1 spray QID NASAL Last administered on 11/25/16 13 :49; Admin Dose 1 SPRAY; Start 09/29/16 at 11:02 Phenol (Cepastat Lozenge) 1 lozenge Q2H PRN MT SORE THROAT Last administered on 11/02/16 01:02; Admin Dose 1 LOZENGE; Start 10/01/16 at 19:00 IV Flush (NS 10 ml) 10 ml PRN PRN IV IV PROTOCOL Last administered on 11/17/16 03:20; Admin Dose 10 ML; Start 10/02/16 at 19:00 Hydromorphone HCl (Dilaudid) 0.5 mg Q4H PRN IV PAIN Last administered on 21:12; Admin Dose 0.5 MG; Start 10/06/16 at 18:30 Potassium Chloride 20 meq 20 meq DAILY GTB Last administered on 11/25/16 08:58 ; Admin Dose 20 MEQ; Start 10/30/16 at 12:00 Meropenem (Merrem 500 Mg/ 100 ml (Pmx)) 100 ml @ 200 mls/hr Q8 IVPB Last administered on 11/25/16 13:49; Admin Dose 200 MLS/HR; Start 11/14/16 at 14:00 Acetaminophen (Tylenol Liquid) 650 mg Q6H PRN PEG PAIN AND OR ELEVATED TEMP Last administered on 11/20/16 10:46; Admin Dose 650 MG; Start 11/16/16 at 20:04 Alprazolam (Xanax) 0.5 mg Q12H PRN PEG ANXIETY Last administered on 11/20/16 05 :30; Admin Dose 0.5 MG; Start 11/16/16 at 20:30 Ascorbic Acid (Vitamin C) 500 mg BID PEG Last administered on 11/25/16 08:58; Admin Dose 500 MG; Start 11/16/16 at 21:00 Atorvastatin Calcium (Lipitor) 20 mg QHS PEG Last administered on 11/24/16 20: 14; Admin Dose 20 MG; Start 11/16/16 at 21:00 Diazepam (Valium) 10 mg DAILY PEG Last administered on 11/25/16 08:59; Admin Dose 10 MG; Start 11/17/16 at 09:00 Duloxetine HCl (Cymbalta) 20 mg DAILY PEG Last administered on 11/25/16 08:58 ; Admin Dose 20 MG; Start 11/17/16 at 09:00 Fluconazole (Diflucan) 100 mg DAILY PEG Last administered on 11/25/16 08:59; Admin Dose 100 MG; Start 11/17/16 at 09:00 Lactobacillus Acidophilus (Florajen3 Capsule) 1 each TID PEG Last administered on 11/25/16 13:48; Admin Dose 1 EACH; Start 11/16/16 at 21:00 Metronidazole (Flagyl) 500 mg Q8 PEG Last administered on 11/25/16 13:48; Admin Dose 500 MG; Start 11/16/16 at 22:00 Promethazine HCl/ Codeine (Phenergan/ Codeine) 10 ml BID PRN PEG COUGH Last administered on 11/19/16 15:13; Admin Dose 10 ML; Start 11/16/16 at 20:00 Zolpidem Tartrate (Ambien) 5 mg QHS PRN PEG INSOMNIA; Start 11/16/16 at 20:00 Docusate Sodium (Colace Liquid Cup) 100 mg Q12 PRN GTB CONSTIPATION; Start 11/16 at 20:00 Oxycodone HCl 10 mg 10 mg Q4H PO Last administered on 11/25/16 13:48; Admin Dose 10 MG; Start 11/20/16 at 17:30 Sodium Chloride 1,000 ml @ 50 mls/hr Q20H IV Last administered on 11/24/16 20: 14; Admin Dose 50 MLS/HR; Start 11/23/16 at 04:00 Norepinephrine/ Dextrose (Levophed/D5W) 500 ml @ 1.87 mls/hr TITRATE IV Last administered on 11/24/16 13:50; Admin Dose 13.12 MLS/HR; Start 11/23/16 at 09:00 Midodrine 2.5 mg 2.5 mg TID@08,12,17 NGT Last administered on 11/25/16 13:48; Admin Dose 2.5 MG; Start 11/24/16 at 18:33 Vancomycin HCl 100 ml @ 100 mls/hr Q12H IVPB ; Start 11/25/16 at 18:00 Magnesium Sulfate (Magnesium Sulfate 2 Gm/50 ml) 50 ml @ 25 mls/hr ONCE ONCE IVPB ; Start 11/25/16 at 15:00; Stop 11/25/16 at 16:59 Assessment/Plan Additional Assessment/Plan IMP: 1. Acute on chronic hypoxemic and hypercapnic respiratory failure now requiring mechanical ventilation 2. Post-obstructive pneumonia 3. Encephalopathy likely toxic metabolic 4. Status post cardiopulmonary arrest 5. Anemia 6. Metastatic lung cancer RECS: 1. Continue mechanical ventilation 2. Avoid narcotics/sedatives 3. Continue nasogastric tube feeding 4. Abx 5. BD's/CPT 35 min cc time PABLO OSMAN MD Nov 25, 2016 15:48
--- NOTE | 2016-11-25 15:50 | CONS ---
Date/Time of Note Date/Time of Note DATE: 11/25/16 TIME: 15:49 Assessment/Plan Assessment/Plan Chief Complaint/Hosp Course Left lung squamous carcinoma. The patient is not a candidate for chemotherapy. Anemia of chronic disease. post 8 u prbc monitor blood count closely transfuse as needed to keep HB above 8 Acute respiratory insufficiency requiring BiPAP. Acute shock, septic versus hypovolemic. tachycardia with episode of SVT. Chronic obstructive pulmonary disease. Dysphagia with G-tube. Continue current G-tube feeding. Hypothyroidism. Continue Synthroid. Problems: Consultation Date/Type/Reason Admit Date/Time Sep 26, 2016 at 20:07 Initial Consult Date 10/19/16 Type of Consultation: hemeon Referring Provider: DRE LOBATO MD 24 HR Interval Summary Free Text/Dictation ll noted no new events no bleeding + wound vac Exam/Review of Systems Vital Signs Vitals Vital Signs Date Time Temp Pulse Resp B/P Pulse Ox O2 Delivery O2 Flow Rate FiO2 11/25/16 12:30 109 22 136/95 100 11/25/16 12:00 99.0 Mechanical Ventilator 11/25/16 05:30 30 11/22/16 20:23 15.0 Intake and Output 11/24/16 11/24/16 11/25/16 15:00 23:00 07:00 Intake Total 1080.69 ml 1274.96 ml 1209.96 ml Output Total 345 ml 750 ml 410 ml Balance 735.69 ml 524.96 ml 799.96 ml Exam Constitutional: alert Head: atraumatic, normocephalic Neck: supple Respiratory: diminished breath sounds, other (Rhonchi bilaterally) Cardiovascular: nl pulses Gastrointestinal: non-tender, other (G-tube), soft Extremities: normal pulses Skin: other (Multiple wounds) Results Result Diagram: 11/25/16 0533 11/25/1633 Results 24 hrs Laboratory Tests Test 11/25/16 05:33 11/25/16 09:20 White Blood Count 18.1 H Red Blood Count 3.20 L Hemoglobin 8.3 L Hematocrit 28.0 L Mean Corpuscular Volume 87.5 Mean Corpuscular Hemoglobin 25.9 L Mean Corpuscular Hemoglobin Concent 29.6 L Red Cell Distribution Width 17.5 H Platelet Count 483 H Mean Platelet Volume 9.1 Neutrophils % 69.8 Lymphocytes % 13.9 L Monocytes % 11.9 H Eosinophils % 2.8 Basophils % 0.5 Nucleated Red Blood Cells % 0.0 Neutrophils # 12.6 H Lymphocytes # 2.5 Monocytes # 2.2 H Eosinophils # 0.5 Basophils # 0.1 Nucleated Red Blood Cells # 0.0 Sodium Level 136 Potassium Level 3.9 Chloride Level 98 Carbon Dioxide Level 31 Anion Gap 11 Blood Urea Nitrogen 15 Creatinine 0.47 Glucose Level 119 # Calcium Level 8.8 Phosphorus Level 3.5 Magnesium Level 1.5 L Vancomycin Level Trough 21.4 *H Medications Medications Current Medications Ondansetron HCl (Zofran Inj) 4 mg Q6 PRN IV NAUSEA AND/OR VOMITING; Start 09/26 at 22:30 Collagenase (Santyl) 1 applic DAILY TOP Last administered on 11/23/16 08:20; Admin Dose 1 APPLIC; Start 09/27/16 at 09:00 Collagenase (Santyl) 1 applic PRN PRN TOP SOILED OR DISLODGED DRESSING; Start 09/27/16 at 05:00 Lansoprazole (Prevacid) 30 mg DAILY@06 GTB Last administered on 11/25/16 06:06 ; Admin Dose 30 MG; Start 09/28/16 at 06:00 Cromolyn Sodium (Nasalcrom) 1 spray QID NASAL Last administered on 11/25/16 13 :49; Admin Dose 1 SPRAY; Start 09/29/16 at 11:02 Phenol (Cepastat Lozenge) 1 lozenge Q2H PRN MT SORE THROAT Last administered on 11/02/16 01:02; Admin Dose 1 LOZENGE; Start 10/01/16 at 19:00 IV Flush (NS 10 ml) 10 ml PRN PRN IV IV PROTOCOL Last administered on 11/17/16 03:20; Admin Dose 10 ML; Start 10/02/16 at 19:00 Hydromorphone HCl (Dilaudid) 0.5 mg Q4H PRN IV PAIN Last administered on 21:12; Admin Dose 0.5 MG; Start 10/06/16 at 18:30 Potassium Chloride 20 meq 20 meq DAILY GTB Last administered on 11/25/16 08:58 ; Admin Dose 20 MEQ; Start 10/30/16 at 12:00 Meropenem (Merrem 500 Mg/ 100 ml (Pmx)) 100 ml @ 200 mls/hr Q8 IVPB Last administered on 11/25/16 13:49; Admin Dose 200 MLS/HR; Start 11/14/16 at 14:00 Acetaminophen (Tylenol Liquid) 650 mg Q6H PRN PEG PAIN AND OR ELEVATED TEMP Last administered on 11/20/16 10:46; Admin Dose 650 MG; Start 11/16/16 at 20:04 Alprazolam (Xanax) 0.5 mg Q12H PRN PEG ANXIETY Last administered on 11/20/16 05 :30; Admin Dose 0.5 MG; Start 11/16/16 at 20:30 Ascorbic Acid (Vitamin C) 500 mg BID PEG Last administered on 11/25/16 08:58; Admin Dose 500 MG; Start 11/16/16 at 21:00 Atorvastatin Calcium (Lipitor) 20 mg QHS PEG Last administered on 11/24/16 20: 14; Admin Dose 20 MG; Start 11/16/16 at 21:00 Diazepam (Valium) 10 mg DAILY PEG Last administered on 11/25/16 08:59; Admin Dose 10 MG; Start 11/17/16 at 09:00 Duloxetine HCl (Cymbalta) 20 mg DAILY PEG Last administered on 11/25/16 08:58 ; Admin Dose 20 MG; Start 11/17/16 at 09:00 Fluconazole (Diflucan) 100 mg DAILY PEG Last administered on 11/25/16 08:59; Admin Dose 100 MG; Start 11/17/16 at 09:00 Lactobacillus Acidophilus (Florajen3 Capsule) 1 each TID PEG Last administered on 11/25/16 13:48; Admin Dose 1 EACH; Start 11/16/16 at 21:00 Metronidazole (Flagyl) 500 mg Q8 PEG Last administered on 11/25/16 13:48; Admin Dose 500 MG; Start 11/16/16 at 22:00 Promethazine HCl/ Codeine (Phenergan/ Codeine) 10 ml BID PRN PEG COUGH Last administered on 11/19/16 15:13; Admin Dose 10 ML; Start 11/16/16 at 20:00 Zolpidem Tartrate (Ambien) 5 mg QHS PRN PEG INSOMNIA; Start 11/16/16 at 20:00 Docusate Sodium (Colace Liquid Cup) 100 mg Q12 PRN GTB CONSTIPATION; Start 11/16 at 20:00 Oxycodone HCl 10 mg 10 mg Q4H PO Last administered on 11/25/16 13:48; Admin Dose 10 MG; Start 11/20/16 at 17:30 Sodium Chloride 1,000 ml @ 50 mls/hr Q20H IV Last administered on 11/24/16 20: 14; Admin Dose 50 MLS/HR; Start 11/23/16 at 04:00 Norepinephrine/ Dextrose (Levophed/D5W) 500 ml @ 1.87 mls/hr TITRATE IV Last administered on 11/24/16 13:50; Admin Dose 13.12 MLS/HR; Start 11/23/16 at 09:00 Midodrine 2.5 mg 2.5 mg TID@08,12,17 NGT Last administered on 11/25/16 13:48; Admin Dose 2.5 MG; Start 11/24/16 at 18:33 Vancomycin HCl 100 ml @ 100 mls/hr Q12H IVPB ; Start 11/25/16 at 18:00 Magnesium Sulfate (Magnesium Sulfate 2 Gm/50 ml) 50 ml @ 25 mls/hr ONCE ONCE IVPB ; Start 11/25/16 at 15:00; Stop 11/25/16 at 16:59 DYLLAN CARRION MD Nov 25, 2016 15:50
[2016-11-25] MEDS: SOD CHLORIDE 0.9% 1,000 ML IV SCH (16:00)
--- NOTE | 2016-11-25 18:34 | CONS ---
Date/Time of Note Date/Time of Note DATE: 11/25/16 TIME: 18:33 Assessment/Plan Assessment/Plan Chief Complaint/Hosp Course SUBJECTIVE: no acute changes, remains on Levophed gtt, nad , family at bedside INDWELLINGS: Endotracheal tube, PEG, George, PICC line. ANTIMICROBIALS: 1. The patient remains on broad spectrum coverage with Fluconazole. 2. Flagyl. 3. Vancomycin. 4. Meropenem. PHYSICAL EXAMINATION: GENERAL: Chronically ill-appearing, cachectic, elderly woman who is intubated, in no distress. HEENT: Head atraumatic, normocephalic. Sclerae anicteric. Buccal mucosa dry. NECK: Supple. CHEST: Rise symmetrical. Breath sounds diminished. HEART: S1, S2. ABDOMEN: Soft. Bowel tones hypoactive. EXTREMITIES: No cyanosis. ASSESSMENT: 1. Acute on chronic respiratory failure, status post cardiopulmonary arrest. 2. Pneumonia. 3. Lung cancer. 4. History of Clostridium difficile colitis and recurrent urinary tract infection. 5. Unstageable sacral wound, status post debridement with wound VAC application. PLAN: The patient remains unchanged, covered with broad spectrum antibiotics. Prognosis poor. KARRI RN Problems: Consultation Date/Type/Reason Admit Date/Time Sep 26, 2016 at 20:07 Type of Consultation: ID Referring Provider: DRE LOBATO MD Exam/Review of Systems Vital Signs Vitals Vital Signs Date Time Temp Pulse Resp B/P Pulse Ox O2 Delivery O2 Flow Rate FiO2 11/25/16 17:20 108 20 100 30 11/25/16 17:00 128/90 Mechanical Ventilator 11/25/16 16:00 98.3 11/22/16 20:23 15.0 Intake and Output 11/24/16 11/24/16 11/25/16 15:00 23:00 07:00 Intake Total 1080.69 ml 1274.96 ml 1209.96 ml Output Total 345 ml 750 ml 410 ml Balance 735.69 ml 524.96 ml 799.96 ml Results Result Diagram: 11/25/16 0533 11/25/16 0533 Results 24 hrs Laboratory Tests Test 11/25/16 05:33 11/25/16 09:20 White Blood Count 18.1 H Red Blood Count 3.20 L Hemoglobin 8.3 L Hematocrit 28.0 L Mean Corpuscular Volume 87.5 Mean Corpuscular Hemoglobin 25.9 L Mean Corpuscular Hemoglobin Concent 29.6 L Red Cell Distribution Width 17.5 H Platelet Count 483 H Mean Platelet Volume 9.1 Neutrophils % 69.8 Lymphocytes % 13.9 L Monocytes % 11.9 H Eosinophils % 2.8 Basophils % 0.5 Nucleated Red Blood Cells % 0.0 Neutrophils # 12.6 H Lymphocytes # 2.5 Monocytes # 2.2 H Eosinophils # 0.5 Basophils # 0.1 Nucleated Red Blood Cells # 0.0 Sodium Level 136 Potassium Level 3.9 Chloride Level 98 Carbon Dioxide Level 31 Anion Gap 11 Blood Urea Nitrogen 15 Creatinine 0.47 Glucose Level 119 # Calcium Level 8.8 Phosphorus Level 3.5 Magnesium Level 1.5 L Vancomycin Level Trough 21.4 *H Medications Medications Current Medications Ondansetron HCl (Zofran Inj) 4 mg Q6 PRN IV NAUSEA AND/OR VOMITING; Start 09/26 at 22:30 Collagenase (Santyl) 1 applic DAILY TOP Last administered on 11/23/16 08:20; Admin Dose 1 APPLIC; Start 09/27/16 at 09:00 Collagenase (Santyl) 1 applic PRN PRN TOP SOILED OR DISLODGED DRESSING; Start 09/27/16 at 05:00 Lansoprazole (Prevacid) 30 mg DAILY@06 GTB Last administered on 11/25/16 06:06 ; Admin Dose 30 MG; Start 09/28/16 at 06:00 Cromolyn Sodium (Nasalcrom) 1 spray QID NASAL Last administered on 11/25/16 13 :49; Admin Dose 1 SPRAY; Start 09/29/16 at 11:02 Phenol (Cepastat Lozenge) 1 lozenge Q2H PRN MT SORE THROAT Last administered on 11/02/16 01:02; Admin Dose 1 LOZENGE; Start 10/01/16 at 19:00 IV Flush (NS 10 ml) 10 ml PRN PRN IV IV PROTOCOL Last administered on 11/17/16 03:20; Admin Dose 10 ML; Start 10/02/16 at 19:00 Hydromorphone HCl (Dilaudid) 0.5 mg Q4H PRN IV PAIN Last administered on 21:12; Admin Dose 0.5 MG; Start 10/06/16 at 18:30 Potassium Chloride 20 meq 20 meq DAILY GTB Last administered on 11/25/16 08:58 ; Admin Dose 20 MEQ; Start 10/30/16 at 12:00 Meropenem (Merrem 500 Mg/ 100 ml (Pmx)) 100 ml @ 200 mls/hr Q8 IVPB Last administered on 11/25/16 13:49; Admin Dose 200 MLS/HR; Start 11/14/16 at 14:00 Acetaminophen (Tylenol Liquid) 650 mg Q6H PRN PEG PAIN AND OR ELEVATED TEMP Last administered on 11/20/16 10:46; Admin Dose 650 MG; Start 11/16/16 at 20:04 Alprazolam (Xanax) 0.5 mg Q12H PRN PEG ANXIETY Last administered on 11/20/16 05 :30; Admin Dose 0.5 MG; Start 11/16/16 at 20:30 Ascorbic Acid (Vitamin C) 500 mg BID PEG Last administered on 11/25/16 08:58; Admin Dose 500 MG; Start 11/16/16 at 21:00 Atorvastatin Calcium (Lipitor) 20 mg QHS PEG Last administered on 11/24/16 20: 14; Admin Dose 20 MG; Start 11/16/16 at 21:00 Diazepam (Valium) 10 mg DAILY PEG Last administered on 11/25/16 08:59; Admin Dose 10 MG; Start 11/17/16 at 09:00 Duloxetine HCl (Cymbalta) 20 mg DAILY PEG Last administered on 11/25/16 08:58 ; Admin Dose 20 MG; Start 11/17/16 at 09:00 Fluconazole (Diflucan) 100 mg DAILY PEG Last administered on 11/25/16 08:59; Admin Dose 100 MG; Start 11/17/16 at 09:00 Lactobacillus Acidophilus (Florajen3 Capsule) 1 each TID PEG Last administered on 11/25/16 13:48; Admin Dose 1 EACH; Start 11/16/16 at 21:00 Metronidazole (Flagyl) 500 mg Q8 PEG Last administered on 11/25/16 13:48; Admin Dose 500 MG; Start 11/16/16 at 22:00 Promethazine HCl/ Codeine (Phenergan/ Codeine) 10 ml BID PRN PEG COUGH Last administered on 11/19/16 15:13; Admin Dose 10 ML; Start 11/16/16 at 20:00 Zolpidem Tartrate (Ambien) 5 mg QHS PRN PEG INSOMNIA; Start 11/16/16 at 20:00 Docusate Sodium (Colace Liquid Cup) 100 mg Q12 PRN GTB CONSTIPATION; Start 11/16 at 20:00 Oxycodone HCl 10 mg 10 mg Q4H PO Last administered on 11/25/16 13:48; Admin Dose 10 MG; Start 11/20/16 at 17:30 Sodium Chloride 1,000 ml @ 50 mls/hr Q20H IV Last administered on 11/24/16 20: 14; Admin Dose 50 MLS/HR; Start 11/23/16 at 04:00 Norepinephrine/ Dextrose (Levophed/D5W) 500 ml @ 1.87 mls/hr TITRATE IV Last administered on 11/24/16 13:50; Admin Dose 13.12 MLS/HR; Start 11/23/16 at 09:00 Midodrine 2.5 mg 2.5 mg TID@08,12,17 NGT Last administered on 11/25/16 13:48; Admin Dose 2.5 MG; Start 11/24/16 at 18:33 Vancomycin HCl (Vancocin) 100 ml @ 100 mls/hr Q12H IVPB ; Start 11/25/16 at 18: 00 RUBIN MAYEN NP Nov 25, 2016 18:34
[2016-11-25] MEDS: VANCOMYCIN 500MG/NS (PMX) 100 ML IVPB SCH (18:58)
[2016-11-25] MEDS: ATORVASTATIN 20 MG TAB PEG SCH (20:46)
[2016-11-26] VITALS (101 sets, daily range): BP systolic 75–130; BP diastolic 52–102; PULSE 91–150; RESP 12–23
[2016-11-26] MEDS: oxyCODONE 5 MG TAB PO SCH ×6 (01:13→21:51)
[2016-11-26] MEDS: SOD CHLORIDE 0.9% 1,000 ML IV SCH ×2 (03:06→12:00)
[2016-11-26 04:35] LABS: ADD SCAN DIFF NO
[2016-11-26 04:51] LABS: ABNORMAL IP MESSAGE 1; BASOPHIL # 0.1 10^3/ul (0.0-0.1); BASOPHILS % 0.5 % (0.0-2.0); EOSINOPHILS # 0.4 10^3/ul (0.0-0.5); EOSINOPHILS % 2.3 % (0.0-7.0); HEMATOCRIT 26.7 % (37.0-47.0); LYMPHOCYTES # 2.3 10^3/ul (0.8-2.9); LYMPHOCYTES % 12.3 % (15.0-51.0); MEAN CORPUSCULAR HEMOGLOBIN 26.5 pg (29.0-33.0); MEAN CORPUSCULAR VOLUME 88.4 fl (82.0-101.0); MONOCYTE # 2.1 10^3/ul (0.3-0.9); MONOCYTES % 10.9 % (0.0-11.0); NEUTROPHIL # 13.9 10^3/ul (1.6-7.5); NEUTROPHILS % 73.1 % (39.0-77.0); PLATELET COUNT 478 10^3/UL (140-415); RED BLOOD COUNT 3.02 10^6/ul (4.20-5.40); RED CELL DISTRIBUTION WIDTH 17.9 % (11.5-14.5)
[2016-11-26 05:06] LABS: ALBUMIN 2.5 g/dl (3.3-4.9); ALBUMIN/GLOBULIN RATIO 0.56; CALCIUM 8.5 mg/dl (8.4-10.2); CREATININE 0.42 mg/dl (0.44-1.00); POTASSIUM 3.9 mmol/L (3.5-5.1); TOTAL PROTEIN 6.9 g/dl (6.1-8.1)
[2016-11-26] MEDS: MEROPENEM 500 MG/100 ML (PMX) 100 ML IVPB SCH ×3 (05:58→21:52)
[2016-11-26] MEDS: metroNIDAZOLE 500 MG TAB PEG SCH ×3 (05:59→21:56)
[2016-11-26] MEDS: LANSOPRAZOLE 30 MG CAP GTB SCH (06:00)
[2016-11-26] MEDS: LEVOTHYROXINE 125 MCG TAB PEG SCH (06:35)
[2016-11-26] MEDS: VANCOMYCIN 500MG/NS (PMX) 100 ML IVPB SCH ×2 (06:35→17:22)
[2016-11-26] MEDS: ASCORBIC ACID 500 MG TAB PEG SCH ×2 (08:22→21:52)
[2016-11-26] MEDS: MIDODRINE 2.5 MG TAB NGT SCH ×3 (08:22→17:23)
[2016-11-26] MEDS: POTASSIUM CHLORIDE 20 MEQ POWDER FOR ORAL SOLN GTB SCH (08:23)
[2016-11-26] MEDS: CROMOLYN 4% 26ML NAS INH NASAL SCH ×3 (08:23→17:23)
[2016-11-26] MEDS: L ACIDOPHIL/B LACTIS/B LONGUM CAPSULE PEG SCH ×3 (08:23→21:52)
[2016-11-26] MEDS: DULOXETINE 20 MG CAP DR PEG SCH (08:23)
[2016-11-26] MEDS: FLUCONAZOLE 100 MG TAB PEG SCH (08:23)
[2016-11-26] MEDS: COLLAGENASE 30 GM TUBE TOP SCH (08:25)
[2016-11-26] MEDS: DIAZEPAM 5 MG TAB PEG SCH (08:29)
--- NOTE | 2016-11-26 10:40 | PN ---
Date/Time of Note Date/Time of Note DATE: 11/26/16 TIME: 10:39 Assessment/Plan VTE Prophylaxis VTE Prophylaxis Intervention: other Lines/Catheters IV Catheter Type (from [facility]): PICC Line Central line still needed: Yes Urinary Cath still in place: Yes Reason Cath still needed: skin wounds contaminated by urine Assessment/Plan Chief Complaint/Hosp Course - Status post cardiopulmonary arrest. 2 new ventilatory support ICU care. Dr. Hernandez is following in cardiology consultation. - Septic shock, resolving. Dr. Coleman is following in infectious disease consultation. Continue antibiotics per ID. - Acute respiratory failure. Continue breathing treatment, oxygen supply supplementation and bronchodilators. Dr. Neri is following in pulmonology consultation. - Left lung squamous carcinoma. The patient is not a candidate for chemotherapy. Dr. Calvo is following in oncology consultation. - Chronic obstructive pulmonary disease. Patient with long history of tobacco use. Continue breathing treatment. - Anemia of chronic disease. Continue to monitor hemoglobin and hematocrit. Hemoglobin is 7.7 today, we will transfuse 1 units of packed red blood cells - Dysphagia with G-tube. Continue G-tube feeding, monitor residual. Continue aspiration precautions. - Hypothyroidism. Continue Synthroid. - Acute on chronic pain. - Failure to thrive. Problems: Subjective 24 Hr Interval Summary Free Text/Dictation Patient is sedated and intubated Exam/Review of Systems Vital Signs Vitals Vital Signs Date Time Temp Pulse Resp B/P Pulse Ox O2 Delivery O2 Flow Rate FiO2 11/26/16 10:15 99 18 111/78 100 11/26/16 10:00 Mechanical Ventilator 11/26/16 08:00 97.9 11/26/16 06:00 40 11/22/16 20:23 15.0 Intake and Output 11/25/16 11/25/16 11/26/16 15:00 23:00 07:00 Intake Total 1220.525 ml 1277.18 ml 977.47 ml Output Total 480 ml 835 ml 590 ml Balance 740.525 ml 442.18 ml 387.47 ml Exam Constitutional: well developed Head: atraumatic, normocephalic Neck: supple Respiratory: diminished breath sounds Cardiovascular: regular rate and rhythm Gastrointestinal: non-tender, soft Extremities: normal pulses Results Result Diagram: 11/26/16 0330 11/26/16 0330 Results 24 hrs Laboratory Tests Test 11/26/16 03:30 White Blood Count 19.0 H Red Blood Count 3.02 L Hemoglobin 8.0 L Hematocrit 26.7 L Mean Corpuscular Volume 88.4 Mean Corpuscular Hemoglobin 26.5 L Mean Corpuscular Hemoglobin Concent 30.0 L Red Cell Distribution Width 17.9 H Platelet Count 478 H Mean Platelet Volume 9.0 Neutrophils % 73.1 Lymphocytes % 12.3 L Monocytes % 10.9 Eosinophils % 2.3 Basophils % 0.5 Nucleated Red Blood Cells % 0.0 Neutrophils # 13.9 H Lymphocytes # 2.3 Monocytes # 2.1 H Eosinophils # 0.4 Basophils # 0.1 Nucleated Red Blood Cells # 0.0 Sodium Level 134 L Potassium Level 3.9 Chloride Level 96 L Carbon Dioxide Level 31 Anion Gap 11 Blood Urea Nitrogen 14 Creatinine 0.42 L Glucose Level 117 Calcium Level 8.5 Total Bilirubin 0.0 L Direct Bilirubin 0.00 Indirect Bilirubin 0.0 Aspartate Amino Transf (AST/SGOT) 23 Alanine Aminotransferase (ALT/SGPT) 28 Alkaline Phosphatase 176 H Total Protein 6.9 Albumin 2.5 L Globulin 4.40 H Albumin/Globulin Ratio 0.56 Medications Medications Current Medications Ondansetron HCl (Zofran Inj) 4 mg Q6 PRN IV NAUSEA AND/OR VOMITING; Start 09/26 at 22:30 Collagenase (Santyl) 1 applic DAILY TOP Last administered on 11/23/16 08:20; Admin Dose 1 APPLIC; Start 09/27/16 at 09:00 Collagenase (Santyl) 1 applic PRN PRN TOP SOILED OR DISLODGED DRESSING; Start 09/27/16 at 05:00 Lansoprazole (Prevacid) 30 mg DAILY@06 GTB Last administered on 11/26/16 06:00 ; Admin Dose 30 MG; Start 09/28/16 at 06:00 Cromolyn Sodium (Nasalcrom) 1 spray QID NASAL Last administered on 11/26/16 08 :23; Admin Dose 1 SPRAY; Start 09/29/16 at 11:02 Phenol (Cepastat Lozenge) 1 lozenge Q2H PRN MT SORE THROAT Last administered on 11/02/16 01:02; Admin Dose 1 LOZENGE; Start 10/01/16 at 19:00 IV Flush (NS 10 ml) 10 ml PRN PRN IV IV PROTOCOL Last administered on 11/17/16 03:20; Admin Dose 10 ML; Start 10/02/16 at 19:00 Hydromorphone HCl (Dilaudid) 0.5 mg Q4H PRN IV PAIN Last administered on 21:12; Admin Dose 0.5 MG; Start 10/06/16 at 18:30 Potassium Chloride 20 meq 20 meq DAILY GTB Last administered on 11/26/16 08:23 ; Admin Dose 20 MEQ; Start 10/30/16 at 12:00 Meropenem (Merrem 500 Mg/ 100 ml (Pmx)) 100 ml @ 200 mls/hr Q8 IVPB Last administered on 11/26/16 05:58; Admin Dose 200 MLS/HR; Start 11/14/16 at 14:00 Acetaminophen (Tylenol Liquid) 650 mg Q6H PRN PEG PAIN AND OR ELEVATED TEMP Last administered on 11/20/16 10:46; Admin Dose 650 MG; Start 11/16/16 at 20:04 Alprazolam (Xanax) 0.5 mg Q12H PRN PEG ANXIETY Last administered on 11/20/16 05 :30; Admin Dose 0.5 MG; Start 11/16/16 at 20:30 Ascorbic Acid (Vitamin C) 500 mg BID PEG Last administered on 11/26/16 08:22; Admin Dose 500 MG; Start 11/16/16 at 21:00 Atorvastatin Calcium (Lipitor) 20 mg QHS PEG Last administered on 11/25/16 20: 46; Admin Dose 20 MG; Start 11/16/16 at 21:00 Diazepam (Valium) 10 mg DAILY PEG Last administered on 11/26/16 08:29; Admin Dose 10 MG; Start 11/17/16 at 09:00 Duloxetine HCl (Cymbalta) 20 mg DAILY PEG Last administered on 11/26/16 08:23 ; Admin Dose 20 MG; Start 11/17/16 at 09:00 Fluconazole (Diflucan) 100 mg DAILY PEG Last administered on 11/26/16 08:23; Admin Dose 100 MG; Start 11/17/16 at 09:00 Lactobacillus Acidophilus (Florajen3 Capsule) 1 each TID PEG Last administered on 11/26/16 08:23; Admin Dose 1 EACH; Start 11/16/16 at 21:00 Metronidazole (Flagyl) 500 mg Q8 PEG Last administered on 11/26/16 05:59; Admin Dose 500 MG; Start 11/16/16 at 22:00 Promethazine HCl/ Codeine (Phenergan/ Codeine) 10 ml BID PRN PEG COUGH Last administered on 11/19/16 15:13; Admin Dose 10 ML; Start 11/16/16 at 20:00 Zolpidem Tartrate (Ambien) 5 mg QHS PRN PEG INSOMNIA; Start 11/16/16 at 20:00 Docusate Sodium (Colace Liquid Cup) 100 mg Q12 PRN GTB CONSTIPATION; Start 11/16 at 20:00 Oxycodone HCl 10 mg 10 mg Q4H PO Last administered on 11/26/16 08:30; Admin Dose 10 MG; Start 11/20/16 at 17:30 Sodium Chloride 1,000 ml @ 50 mls/hr Q20H IV Last administered on 11/26/16 03 :06; Admin Dose 50 MLS/HR; Start 11/23/16 at 04:00 Norepinephrine/ Dextrose (Levophed/D5W) 500 ml @ 1.87 mls/hr TITRATE IV Last administered on 11/24/16 13:50; Admin Dose 13.12 MLS/HR; Start 11/23/16 at 09:00 Midodrine 2.5 mg 2.5 mg TID@08,12,17 NGT Last administered on 11/26/16 08:22; Admin Dose 2.5 MG; Start 11/24/16 at 18:33 Vancomycin HCl (Vancocin) 100 ml @ 100 mls/hr Q12H IVPB Last administered on 06:35; Admin Dose 100 MLS/HR; Start 11/25/16 at 18:00 MICHAEL HOROWITZ Nov 26, 2016 10:40
--- NOTE | 2016-11-26 11:55 | PN ---
DATE: 11/26/2016 CARDIOLOGY FOLLOWUP PROGRESS NOTE SUBJECTIVE: Discussed with the staff. Rhythm strip was reviewed. The patient remains in sinus rhy thm, sinus tachycardia. She is on the vent, unable to be weaned down. Still hypotensive on Levophe d down to 5 mcg. The patient denies any chest pain or pressure to me. MEDICATIONS: Reviewed as per medication reconciliation, personally reviewed. PHYSICAL EXAMINATION: VITAL SIGNS: Temperature is 97.9, heart rate of 100, blood pressure 96/68, respiration rate of 18, saturating 100% on the vent. HEENT: Normocephalic, atraumatic. Status post intubation on the vent. CARDIOVASCULAR: Tachycardic. PULMONARY: With mild rhonchi. GASTROINTESTINAL: Soft. No rebound. Status post PEG placement. EXTREMITIES: With positive lower extremity edema. NEUROLOGIC: Awake, follows some commands. PSYCHIATRIC: Appears to be calm. LABORATORY: WBC of 19, hemoglobin 8, platelets of 478. Sodium 134, potassium 3.9, BUN of 14, creat inine 0.42, glucose of 117. I's and O's 3668 in and 1905 out. ASSESSMENT AND PLAN: 1. Hypoxemic respiratory failure, status post intubation, vent dependent now. 2. Status post cardiopulmonary arrest secondary to most likely pulmonary arrest and status post ___ _. 3. Septic shock, severe hypotension on Levophed. 4. History of lung cancer. 5. History of chronic obstructive pulmonary disease. 6. Pulmonary hypertension. 7. Anemia. 8. Thyroid disorder. RECOMMENDATIONS: We will continue with the vent upon respiratory care. Antibiotic is managed as pe r internal medicine. Thyroid medication supplement will be continued. Statin as tolerated will be continued. We will try to come down on the Levophed and titrate off as possible. Continue with the ICU care, ____ vent support. Dr. Tipton will follow up tomorrow. Dictated By: LAURE HERNDON/SANDER Conf#: [id number] DID#: [id number]
--- NOTE | 2016-11-26 13:05 | CONS ---
Date/Time of Note Date/Time of Note DATE: 11/26/16 TIME: 12:57 Assessment/Plan Assessment/Plan Additional Assessment/Plan - Remains on Levophed at 5 mcs/hr , pain is well cotrolled with Roxicodone- staff - Hypomagnesium-pending Mag level, FU - Hyponatremia, likely secondary to hypovolemic hyponatremia- resolved - Status post acute kidney injury on chronic kidney disease due to systemic inflammatory response syndrome. - Systemic inflammatory response syndrome.- ID follows - History of recurrent polymicrobial urinary tract infections. - History of dementia. - History of previous cerebrovascular accident. - History of chronic obstructive pulmonary disease, recently had acute respiratory failure secondary to chronic obstructive pulmonary disease exacerbation. - History of urinary retention with a chronic George catheter in place. 9. Chronic debility with cachexia. 10. Multiple decubitus ulcers with a history of debridement. 11. History of degenerative joint disease of spine. 12. History of hypertension and hypertensive heart disease with mild to moderate concentric left ventricular hypertrophy and echocardiogram with diastolic dysfunction stage I. PLAN: continue current IVF, wound vac in place Na 136, baseline Na around 130 (if continues to run baseline low Na then we will start Tolvaptan vs Na chloride table) will follow up Further recommendations depend upon patient's clinical course. Plan of care adam Zapata /staff Consultation Date/Type/Reason Admit Date/Time Sep 26, 2016 at 20:07 Initial Consult Date 10/19/16 Type of Consultation: ID Referring Provider: DRE LOBATO MD 24 HR Interval Summary Free Text/Dictation Alert, open eyes to name, denies any pain, remains on Levophed at 5 mcs/hr , pain is well cotrolled with Roxicodone- staff Detailed Summary Musculoskeletal: back pain (pain is well controlled now), other Exam/Review of Systems Vital Signs Vitals Vital Signs Date Time Temp Pulse Resp B/P Pulse Ox O2 Delivery O2 Flow Rate FiO2 11/26/16 11:45 101 19 98/69 100 11/26/16 11:00 Mechanical Ventilator 11/26/16 08:00 40 11/26/16 08:00 97.9 11/22/16 20:23 15.0 Intake and Output 11/25/16 11/25/16 11/26/16 15:00 23:00 07:00 Intake Total 1220.525 ml 1277.18 ml 1037.47 ml Output Total 480 ml 835 ml 665 ml Balance 740.525 ml 442.18 ml 372.47 ml Exam Constitutional: alert, oriented (to name only) Respiratory: clear to auscultation, normal air movement, other (remains intubated) Cardiovascular: nl pulses, other (Slightly Tachy -110), regular rate and rhythm Gastrointestinal: non-tender, soft Musculoskeletal: muscle weakness Extremities: normal pulses Neurological: other (responsive to name , pain, touch) Skin: other Results Result Diagram: 11/26/16 0330 11/26/16 0330 Results 24 hrs Laboratory Tests Test 11/26/16 03:30 White Blood Count 19.0 H Red Blood Count 3.02 L Hemoglobin 8.0 L Hematocrit 26.7 L Mean Corpuscular Volume 88.4 Mean Corpuscular Hemoglobin 26.5 L Mean Corpuscular Hemoglobin Concent 30.0 L Red Cell Distribution Width 17.9 H Platelet Count 478 H Mean Platelet Volume 9.0 Neutrophils % 73.1 Lymphocytes % 12.3 L Monocytes % 10.9 Eosinophils % 2.3 Basophils % 0.5 Nucleated Red Blood Cells % 0.0 Neutrophils # 13.9 H Lymphocytes # 2.3 Monocytes # 2.1 H Eosinophils # 0.4 Basophils # 0.1 Nucleated Red Blood Cells # 0.0 Sodium Level 134 L Potassium Level 3.9 Chloride Level 96 L Carbon Dioxide Level 31 Anion Gap 11 Blood Urea Nitrogen 14 Creatinine 0.42 L Glucose Level 117 Calcium Level 8.5 Total Bilirubin 0.0 L Direct Bilirubin 0.00 Indirect Bilirubin 0.0 Aspartate Amino Transf (AST/SGOT) 23 Alanine Aminotransferase (ALT/SGPT) 28 Alkaline Phosphatase 176 H Total Protein 6.9 Albumin 2.5 L Globulin 4.40 H Albumin/Globulin Ratio 0.56 Medications Medications Current Medications Ondansetron HCl (Zofran Inj) 4 mg Q6 PRN IV NAUSEA AND/OR VOMITING; Start 09/26 at 22:30 Collagenase (Santyl) 1 applic DAILY TOP Last administered on 11/23/16t 08:20; Admin Dose 1 APPLIC; Start 09/27/16 at 09:00 Collagenase (Santyl) 1 applic PRN PRN TOP SOILED OR DISLODGED DRESSING; Start 09/27/16 at 05:00 Lansoprazole (Prevacid) 30 mg DAILY@06 GTB Last administered on 11/26/16 06:00 ; Admin Dose 30 MG; Start 09/28/16 at 06:00 Cromolyn Sodium (Nasalcrom) 1 spray QID NASAL Last administered on 11/26/16 08 :23; Admin Dose 1 SPRAY; Start 09/29/16 at 11:02 Phenol (Cepastat Lozenge) 1 lozenge Q2H PRN MT SORE THROAT Last administered on 11/02/16 01:02; Admin Dose 1 LOZENGE; Start 10/01/16 at 19:00 IV Flush (NS 10 ml) 10 ml PRN PRN IV IV PROTOCOL Last administered on 11/17/16 03:20; Admin Dose 10 ML; Start 10/02/16 at 19:00 Hydromorphone HCl (Dilaudid) 0.5 mg Q4H PRN IV PAIN Last administered on 21:12; Admin Dose 0.5 MG; Start 10/06/16 at 18:30 Potassium Chloride 20 meq 20 meq DAILY GTB Last administered on 11/26/16 08:23 ; Admin Dose 20 MEQ; Start 10/30/16 at 12:00 Meropenem (Merrem 500 Mg/ 100 ml (Pmx)) 100 ml @ 200 mls/hr Q8 IVPB Last administered on 11/26/16 05:58; Admin Dose 200 MLS/HR; Start 11/14/16 at 14:00 Acetaminophen (Tylenol Liquid) 650 mg Q6H PRN PEG PAIN AND OR ELEVATED TEMP Last administered on 11/20/16 10:46; Admin Dose 650 MG; Start 11/16/16 at 20:04 Alprazolam (Xanax) 0.5 mg Q12H PRN PEG ANXIETY Last administered on 11/20/16 05 :30; Admin Dose 0.5 MG; Start 11/16/16 at 20:30 Ascorbic Acid (Vitamin C) 500 mg BID PEG Last administered on 11/26/16 08:22; Admin Dose 500 MG; Start 11/16/16 at 21:00 Atorvastatin Calcium (Lipitor) 20 mg QHS PEG Last administered on 11/25/16 20: 46; Admin Dose 20 MG; Start 11/16/16 at 21:00 Diazepam (Valium) 10 mg DAILY PEG Last administered on 11/26/16 08:29; Admin Dose 10 MG; Start 11/17/16 at 09:00 Duloxetine HCl (Cymbalta) 20 mg DAILY PEG Last administered on 11/26/16 08:23 ; Admin Dose 20 MG; Start 11/17/16 at 09:00 Fluconazole (Diflucan) 100 mg DAILY PEG Last administered on 11/26/16 08:23; Admin Dose 100 MG; Start 11/17/16 at 09:00 Lactobacillus Acidophilus (Florajen3 Capsule) 1 each TID PEG Last administered on 11/26/16 08:23; Admin Dose 1 EACH; Start 11/16/16 at 21:00 Metronidazole (Flagyl) 500 mg Q8 PEG Last administered on 11/26/16 05:59; Admin Dose 500 MG; Start 11/16/16 at 22:00 Promethazine HCl/ Codeine (Phenergan/ Codeine) 10 ml BID PRN PEG COUGH Last administered on 11/19/16 15:13; Admin Dose 10 ML; Start 11/16/16 at 20:00 Zolpidem Tartrate (Ambien) 5 mg QHS PRN PEG INSOMNIA; Start 11/16/16 at 20:00 Docusate Sodium (Colace Liquid Cup) 100 mg Q12 PRN GTB CONSTIPATION; Start 11/16 at 20:00 Oxycodone HCl 10 mg 10 mg Q4H PO Last administered on 11/26/16 08:30; Admin Dose 10 MG; Start 11/20/16 at 17:30 Sodium Chloride 1,000 ml @ 50 mls/hr Q20H IV Last administered on 11/26/16 03 :06; Admin Dose 50 MLS/HR; Start 11/23/16 at 04:00 Norepinephrine/ Dextrose (Levophed/D5W) 500 ml @ 1.87 mls/hr TITRATE IV Last administered on 11/24/16 13:50; Admin Dose 13.12 MLS/HR; Start 11/23/16 at 09:00 Midodrine 2.5 mg 2.5 mg TID@08,12,17 NGT Last administered on 11/26/16 08:22; Admin Dose 2.5 MG; Start 11/24/16 at 18:33 Vancomycin HCl (Vancocin) 100 ml @ 100 mls/hr Q12H IVPB Last administered on t 06:35; Admin Dose 100 MLS/HR; Start 11/25/16 at 18:00 Miscellaneous Information (*Rx Drug Level Order Reminder*) VANCOMYCIN TROUGH AT 0500 ONCE ONCE XX ; Start 11/27/16 at 05:00; Stop 11/27/16 at 05:01 VIKASH CASTANEDA Nov 26, 2016 13:05
--- NOTE | 2016-11-26 14:43 | CONS ---
Date/Time of Note Date/Time of Note DATE: 11/26/16 TIME: 14:40 Consult Date/Type/Reason Admit Date/Time Sep 26, 2016 at 20:07 Initial Consult Date 11/14/16 Type of Consultation: Pulm/CCM Ordering Provider: DRE LOBATO MD Subjective On vent. Remains on low-dose levophed. Objective Vital Signs Date Time Temp Pulse Resp B/P Pulse Ox O2 Delivery O2 Flow Rate FiO2 11/26/16 13:14 101 16 100 40 11/26/16 11:45 98/69 11/26/16 11:00 Mechanical Ventilator 11/26/16 08:00 97.9 11/22/16 20:23 15.0 Intake and Output 11/25/16 11/25/16 11/26/16 15:00 23:00 07:00 Intake Total 1220.525 ml 1277.18 ml 1037.47 ml Output Total 480 ml 835 ml 665 ml Balance 740.525 ml 442.18 ml 372.47 ml Exam HEENT: Dry mucous membranes. ET tube in place CARDIAC: S1, S2, no added sounds or murmurs. CHEST: Diminished air entry bilaterally with rales. ABDOMEN: Soft, nontender. No guarding or rebound. EXTREMITIES: + trace LE edema Results/Medications Result Diagram: 11/26/16 0330 11/26/16 0330 Results 24 hrs Laboratory Tests Test 11/26/16 03:30 11/26/16 13:15 White Blood Count 19.0 H Red Blood Count 3.02 L Hemoglobin 8.0 L Hematocrit 26.7 L Mean Corpuscular Volume 88.4 Mean Corpuscular Hemoglobin 26.5 L Mean Corpuscular Hemoglobin Concent 30.0 L Red Cell Distribution Width 17.9 H Platelet Count 478 H Mean Platelet Volume 9.0 Neutrophils % 73.1 Lymphocytes % 12.3 L Monocytes % 10.9 Eosinophils % 2.3 Basophils % 0.5 Nucleated Red Blood Cells % 0.0 Neutrophils # 13.9 H Lymphocytes # 2.3 Monocytes # 2.1 H Eosinophils # 0.4 Basophils # 0.1 Nucleated Red Blood Cells # 0.0 Sodium Level 134 L Potassium Level 3.9 Chloride Level 96 L Carbon Dioxide Level 31 Anion Gap 11 Blood Urea Nitrogen 14 Creatinine 0.42 L Glucose Level 117 Calcium Level 8.5 Total Bilirubin 0.0 L Direct Bilirubin 0.00 Indirect Bilirubin 0.0 Aspartate Amino Transf (AST/SGOT) 23 Alanine Aminotransferase (ALT/SGPT) 28 Alkaline Phosphatase 176 H Total Protein 6.9 Albumin 2.5 L Globulin 4.40 H Albumin/Globulin Ratio 0.56 Magnesium Level 1.8 Medications Current Medications Ondansetron HCl (Zofran Inj) 4 mg Q6 PRN IV NAUSEA AND/OR VOMITING; Start 09/26 at 22:30 Collagenase (Santyl) 1 applic DAILY TOP Last administered on 11/23/16 08:20; Admin Dose 1 APPLIC; Start 09/27/16 at 09:00 Collagenase (Santyl) 1 applic PRN PRN TOP SOILED OR DISLODGED DRESSING; Start 09/27/16 at 05:00 Lansoprazole (Prevacid) 30 mg DAILY@06 GTB Last administered on 11/26/16 06:00 ; Admin Dose 30 MG; Start 09/28/16 at 06:00 Cromolyn Sodium (Nasalcrom) 1 spray QID NASAL Last administered on 11/26/16 13 :24; Admin Dose 1 SPRAY; Start 09/29/16 at 11:02 Phenol (Cepastat Lozenge) 1 lozenge Q2H PRN MT SORE THROAT Last administered on 11/02/16 01:02; Admin Dose 1 LOZENGE; Start 10/01/16 at 19:00 IV Flush (NS 10 ml) 10 ml PRN PRN IV IV PROTOCOL Last administered on 11/17/16 03:20; Admin Dose 10 ML; Start 10/02/16 at 19:00 Hydromorphone HCl (Dilaudid) 0.5 mg Q4H PRN IV PAIN Last administered on 21:12; Admin Dose 0.5 MG; Start 10/06/16 at 18:30 Potassium Chloride 20 meq 20 meq DAILY GTB Last administered on 11/26/16 08:23 ; Admin Dose 20 MEQ; Start 10/30/16 at 12:00 Meropenem (Merrem 500 Mg/ 100 ml (Pmx)) 100 ml @ 200 mls/hr Q8 IVPB Last administered on 11/26/16 13:24; Admin Dose 200 MLS/HR; Start 11/14/16 at 14:00 Acetaminophen (Tylenol Liquid) 650 mg Q6H PRN PEG PAIN AND OR ELEVATED TEMP Last administered on 11/20/16 10:46; Admin Dose 650 MG; Start 11/16/16 at 20:04 Alprazolam (Xanax) 0.5 mg Q12H PRN PEG ANXIETY Last administered on 11/20/16 05 :30; Admin Dose 0.5 MG; Start 11/16/16 at 20:30 Ascorbic Acid (Vitamin C) 500 mg BID PEG Last administered on 11/26/16 08:22; Admin Dose 500 MG; Start 11/16/16 at 21:00 Atorvastatin Calcium (Lipitor) 20 mg QHS PEG Last administered on 11/25/16 20: 46; Admin Dose 20 MG; Start 11/16/16 at 21:00 Diazepam (Valium) 10 mg DAILY PEG Last administered on 11/26/16 08:29; Admin Dose 10 MG; Start 11/17/16 at 09:00 Duloxetine HCl (Cymbalta) 20 mg DAILY PEG Last administered on 11/26/16 08:23 ; Admin Dose 20 MG; Start 11/17/16 at 09:00 Fluconazole (Diflucan) 100 mg DAILY PEG Last administered on 11/26/16 08:23; Admin Dose 100 MG; Start 11/17/16 at 09:00 Lactobacillus Acidophilus (Florajen3 Capsule) 1 each TID PEG Last administered on 11/26/16 13:24; Admin Dose 1 EACH; Start 11/16/16 at 21:00 Metronidazole (Flagyl) 500 mg Q8 PEG Last administered on 11/26/16 13:24; Admin Dose 500 MG; Start 11/16/16 at 22:00 Promethazine HCl/ Codeine (Phenergan/ Codeine) 10 ml BID PRN PEG COUGH Last administered on 11/19/16 15:13; Admin Dose 10 ML; Start 11/16/16 at 20:00 Zolpidem Tartrate (Ambien) 5 mg QHS PRN PEG INSOMNIA; Start 11/16/16 at 20:00 Docusate Sodium (Colace Liquid Cup) 100 mg Q12 PRN GTB CONSTIPATION; Start 11/16 at 20:00 Oxycodone HCl 10 mg 10 mg Q4H PO Last administered on 11/26/16 13:24; Admin Dose 10 MG; Start 11/20/16 at 17:30 Sodium Chloride 1,000 ml @ 50 mls/hr Q20H IV Last administered on 11/26/16 12 :00; Admin Dose 50 MLS/HR; Start 11/23/16 at 04:00 Norepinephrine/ Dextrose (Levophed/D5W) 500 ml @ 1.87 mls/hr TITRATE IV Last administered on 11/26/16 14:21; Admin Dose 9.37 MLS/HR; Start 11/23/16 at 09:00 Midodrine 2.5 mg 2.5 mg TID@08,12,17 NGT Last administered on 11/26/16 14:17; Admin Dose 2.5 MG; Start 11/24/16 at 18:33 Vancomycin HCl (Vancocin) 100 ml @ 100 mls/hr Q12H IVPB Last administered on 06:35; Admin Dose 100 MLS/HR; Start 11/25/16 at 18:00 Miscellaneous Information (*Rx Drug Level Order Reminder*) VANCOMYCIN TROUGH AT 0500 ONCE ONCE XX ; Start 11/27/16 at 05:00; Stop 11/27/16 at 05:01 Assessment/Plan Additional Assessment/Plan IMP: 1. Acute on chronic hypoxemic and hypercapnic respiratory failure now requiring mechanical ventilation 2. Post-obstructive pneumonia 3. Encephalopathy likely toxic metabolic 4. Status post cardiopulmonary arrest 5. Anemia 6. Metastatic lung cancer RECS: 1. Continue mechanical ventilation 2. Avoid narcotics/sedatives 3. Continue nasogastric tube feeding 4. Levophed to MAP > 60; consider midodrine via NG 5. BD's/CPT 6. Would recommend transitioning to comfort measures in view of futility. Consider Bioethics consult. 35 min cc time PABLO OSMAN MD Nov 26, 2016 14:43
[2016-11-26] MEDS: HYDROmorphONE 1 MG/ML SYG IV PRN (19:41)
--- NOTE | 2016-11-26 20:08 | CONS ---
Date/Time of Note Date/Time of Note DATE: 11/26/16 TIME: 20:07 Assessment/Plan Assessment/Plan Chief Complaint/Hosp Course SUBJECTIVE: no acute changes, awake, c/o pain, looks comfortable, afebrile. Levophed at 3mcg/min INDWELLINGS: Endotracheal tube, PEG, George, PICC line. ANTIMICROBIALS: 1. Fluconazole. 2. Flagyl. 3. Vancomycin. 4. Meropenem. PHYSICAL EXAMINATION: GENERAL: Chronically ill-appearing, cachectic, elderly woman who is intubated, in no distress. HEENT: Head atraumatic, normocephalic. Sclerae anicteric. Buccal mucosa dry. NECK: Supple. CHEST: Rise symmetrical. Breath sounds diminished. HEART: S1, S2. ABDOMEN: Soft. Bowel tones hypoactive. EXTREMITIES: No cyanosis. ASSESSMENT: 1. Acute on chronic respiratory failure, status post cardiopulmonary arrest. 2. Pneumonia. 3. Lung cancer. 4. History of Clostridium difficile colitis and recurrent urinary tract infection. 5. Unstageable sacral wound, status post debridement with wound VAC application. PLAN: The patient remains unchanged, covered with broad spectrum antibiotics. May need trach. Prognosis poor. KARRI RN Problems: Consultation Date/Type/Reason Admit Date/Time Sep 26, 2016 at 20:07 Type of Consultation: ID Referring Provider: DRE LOBATO MD Exam/Review of Systems Vital Signs Vitals Vital Signs Date Time Temp Pulse Resp B/P Pulse Ox O2 Delivery O2 Flow Rate FiO2 11/26/16 19:45 98.4 99 16 108/89 100 Mechanical Ventilator 11/26/16 17:30 40 11/22/16 20:23 15.0 Intake and Output 11/25/16 11/25/16 11/26/16 15:00 23:00 07:00 Intake Total 1220.525 ml 1277.18 ml 1037.47 ml Output Total 480 ml 835 ml 665 ml Balance 740.525 ml 442.18 ml 372.47 ml Results Result Diagram: 11/26/16 0330 11/26/16 0330 Results 24 hrs Laboratory Tests Test 11/26/16 03:30 11/26/16 13:15 White Blood Count 19.0 H Red Blood Count 3.02 L Hemoglobin 8.0 L Hematocrit 26.7 L Mean Corpuscular Volume 88.4 Mean Corpuscular Hemoglobin 26.5 L Mean Corpuscular Hemoglobin Concent 30.0 L Red Cell Distribution Width 17.9 H Platelet Count 478 H Mean Platelet Volume 9.0 Neutrophils % 73.1 Lymphocytes % 12.3 L Monocytes % 10.9 Eosinophils % 2.3 Basophils % 0.5 Nucleated Red Blood Cells % 0.0 Neutrophils # 13.9 H Lymphocytes # 2.3 Monocytes # 2.1 H Eosinophils # 0.4 Basophils # 0.1 Nucleated Red Blood Cells # 0.0 Sodium Level 134 L Potassium Level 3.9 Chloride Level 96 L Carbon Dioxide Level 31 Anion Gap 11 Blood Urea Nitrogen 14 Creatinine 0.42 L Glucose Level 117 Calcium Level 8.5 Total Bilirubin 0.0 L Direct Bilirubin 0.00 Indirect Bilirubin 0.0 Aspartate Amino Transf (AST/SGOT) 23 Alanine Aminotransferase (ALT/SGPT) 28 Alkaline Phosphatase 176 H Total Protein 6.9 Albumin 2.5 L Globulin 4.40 H Albumin/Globulin Ratio 0.56 Magnesium Level 1.8 Medications Medications Current Medications Ondansetron HCl (Zofran Inj) 4 mg Q6 PRN IV NAUSEA AND/OR VOMITING; Start 09/26 at 22:30 Collagenase (Santyl) 1 applic DAILY TOP Last administered on 11/23/16 08:20; Admin Dose 1 APPLIC; Start 09/27/16 at 09:00 Collagenase (Santyl) 1 applic PRN PRN TOP SOILED OR DISLODGED DRESSING; Start 09/27/16 at 05:00 Lansoprazole (Prevacid) 30 mg DAILY@06 GTB Last administered on 11/26/16 06:00 ; Admin Dose 30 MG; Start 09/28/16 at 06:00 Cromolyn Sodium (Nasalcrom) 1 spray QID NASAL Last administered on 11/26/16 17 :23; Admin Dose 1 SPRAY; Start 09/29/16 at 11:02 Phenol (Cepastat Lozenge) 1 lozenge Q2H PRN MT SORE THROAT Last administered on 11/02/16 01:02; Admin Dose 1 LOZENGE; Start 10/01/16 at 19:00 IV Flush (NS 10 ml) 10 ml PRN PRN IV IV PROTOCOL Last administered on 11/17/16 03:20; Admin Dose 10 ML; Start 10/02/16 at 19:00 Hydromorphone HCl (Dilaudid) 0.5 mg Q4H PRN IV PAIN Last administered on 19:41; Admin Dose 0.5 MG; Start 10/06/16 at 18:30 Potassium Chloride 20 meq 20 meq DAILY GTB Last administered on 11/26/16 08:23 ; Admin Dose 20 MEQ; Start 10/30/16 at 12:00 Meropenem (Merrem 500 Mg/ 100 ml (Pmx)) 100 ml @ 200 mls/hr Q8 IVPB Last administered on 11/26/16 13:24; Admin Dose 200 MLS/HR; Start 11/14/16 at 14:00 Acetaminophen (Tylenol Liquid) 650 mg Q6H PRN PEG PAIN AND OR ELEVATED TEMP Last administered on 11/20/16 10:46; Admin Dose 650 MG; Start 11/16/16 at 20:04 Alprazolam (Xanax) 0.5 mg Q12H PRN PEG ANXIETY Last administered on 11/20/16 05 :30; Admin Dose 0.5 MG; Start 11/16/16 at 20:30 Ascorbic Acid (Vitamin C) 500 mg BID PEG Last administered on 11/26/16 08:22; Admin Dose 500 MG; Start 11/16/16 at 21:00 Atorvastatin Calcium (Lipitor) 20 mg QHS PEG Last administered on 11/25/16 20: 46; Admin Dose 20 MG; Start 11/16/16 at 21:00 Diazepam (Valium) 10 mg DAILY PEG Last administered on 11/26/16 08:29; Admin Dose 10 MG; Start 11/17/16 at 09:00 Duloxetine HCl (Cymbalta) 20 mg DAILY PEG Last administered on 11/26/16 08:23 ; Admin Dose 20 MG; Start 11/17/16 at 09:00 Fluconazole (Diflucan) 100 mg DAILY PEG Last administered on 11/26/16 08:23; Admin Dose 100 MG; Start 11/17/16 at 09:00 Lactobacillus Acidophilus (Florajen3 Capsule) 1 each TID PEG Last administered on 11/26/16 13:24; Admin Dose 1 EACH; Start 11/16/16 at 21:00 Metronidazole (Flagyl) 500 mg Q8 PEG Last administered on 11/26/16 13:24; Admin Dose 500 MG; Start 11/16/16 at 22:00 Promethazine HCl/ Codeine (Phenergan/ Codeine) 10 ml BID PRN PEG COUGH Last administered on 11/19/16 15:13; Admin Dose 10 ML; Start 11/16/16 at 20:00 Zolpidem Tartrate (Ambien) 5 mg QHS PRN PEG INSOMNIA; Start 11/16/16 at 20:00 Docusate Sodium (Colace Liquid Cup) 100 mg Q12 PRN GTB CONSTIPATION; Start 11/16 at 20:00 Oxycodone HCl 10 mg 10 mg Q4H PO Last administered on 11/26/16 17:23; Admin Dose 10 MG; Start 11/20/16 at 17:30 Sodium Chloride 1,000 ml @ 50 mls/hr Q20H IV Last administered on 11/26/16 12 :00; Admin Dose 50 MLS/HR; Start 11/23/16 at 04:00 Norepinephrine/ Dextrose (Levophed/D5W) 500 ml @ 1.87 mls/hr TITRATE IV Last administered on 11/26/16 14:21; Admin Dose 9.37 MLS/HR; Start 11/23/16 at 09:00 Midodrine 2.5 mg 2.5 mg TID@08,12,17 NGT Last administered on 11/26/16 17:23; Admin Dose 2.5 MG; Start 11/24/16 at 18:33 Vancomycin HCl (Vancocin) 100 ml @ 100 mls/hr Q12H IVPB Last administered on 17:22; Admin Dose 100 MLS/HR; Start 11/25/16 at 18:00 Miscellaneous Information (*Rx Drug Level Order Reminder*) VANCOMYCIN TROUGH AT 0500 ONCE ONCE XX ; Start 11/27/16 at 05:00; Stop 11/27/16 at 05:01 RUBIN MAYEN NP Nov 26, 2016 20:08
[2016-11-26] MEDS: ATORVASTATIN 20 MG TAB PEG SCH (21:50)
--- NOTE | 2016-11-26 22:51 | CONS ---
Date/Time of Note Date/Time of Note DATE: 11/26/16 TIME: 22:45 Assessment/Plan Assessment/Plan Chief Complaint/Hosp Course Left lung squamous carcinoma. The patient is not a candidate for chemotherapy. Anemia of chronic disease. post 8 u prbc monitor blood count closely transfuse as needed to keep HB above 8 Acute respiratory insufficiency requiring BiPAP. Acute shock, septic versus hypovolemic. tachycardia with episode of SVT. Chronic obstructive pulmonary disease. Dysphagia with G-tube. Continue current G-tube feeding. Hypothyroidism. Continue Synthroid. Problems: Consultation Date/Type/Reason Admit Date/Time Sep 26, 2016 at 20:07 Initial Consult Date 10/19/16 [facility] Referring Provider: DRE LOBATO MD 24 HR Interval Summary Free Text/Dictation remains on Levophed at 5 mcs/hr , pain is well cotrolled with Roxicodone- dw staff Detailed Summary Musculoskeletal: back pain (pain is well controlled now), other Exam/Review of Systems Vital Signs Vitals Vital Signs Date Time Temp Pulse Resp B/P Pulse Ox O2 Delivery O2 Flow Rate FiO2 11/26/16 20:00 96 11/26/16 19:45 98.4 16 108/89 100 Mechanical Ventilator 11/26/16 17:30 40 11/22/16 20:23 15.0 Intake and Output 11/25/16 11/25/16 11/26/16 15:00 23:00 07:00 Intake Total 1220.525 ml 1277.18 ml 1037.47 ml Output Total 480 ml 835 ml 665 ml Balance 740.525 ml 442.18 ml 372.47 ml Exam Exam Constitutional: alert, oriented (to name only) Respiratory: clear to auscultation, normal air movement, other (remains intubated) Cardiovascular: nl pulses, other (Slightly Tachy -110), regular rate and rhythm Gastrointestinal: non-tender, soft Musculoskeletal: muscle weakness Extremities: normal pulses Neurological: other (responsive to name , pain, touch) Skin: other Results Result Diagram: 11/26/16 0330 11/26/16 0330 Results 24 hrs Laboratory Tests Test 11/26/16 03:30 11/26/16 13:15 White Blood Count 19.0 H Red Blood Count 3.02 L Hemoglobin 8.0 L Hematocrit 26.7 L Mean Corpuscular Volume 88.4 Mean Corpuscular Hemoglobin 26.5 L Mean Corpuscular Hemoglobin Concent 30.0 L Red Cell Distribution Width 17.9 H Platelet Count 478 H Mean Platelet Volume 9.0 Neutrophils % 73.1 Lymphocytes % 12.3 L Monocytes % 10.9 Eosinophils % 2.3 Basophils % 0.5 Nucleated Red Blood Cells % 0.0 Neutrophils # 13.9 H Lymphocytes # 2.3 Monocytes # 2.1 H Eosinophils # 0.4 Basophils # 0.1 Nucleated Red Blood Cells # 0.0 Sodium Level 134 L Potassium Level 3.9 Chloride Level 96 L Carbon Dioxide Level 31 Anion Gap 11 Blood Urea Nitrogen 14 Creatinine 0.42 L Glucose Level 117 Calcium Level 8.5 Total Bilirubin 0.0 L Direct Bilirubin 0.00 Indirect Bilirubin 0.0 Aspartate Amino Transf (AST/SGOT) 23 Alanine Aminotransferase (ALT/SGPT) 28 Alkaline Phosphatase 176 H Total Protein 6.9 Albumin 2.5 L Globulin 4.40 H Albumin/Globulin Ratio 0.56 Magnesium Level 1.8 Medications Medications Current Medications Ondansetron HCl (Zofran Inj) 4 mg Q6 PRN IV NAUSEA AND/OR VOMITING; Start 09/26 at 22:30 Collagenase (Santyl) 1 applic DAILY TOP Last administered on 11/23/16 08:20; Admin Dose 1 APPLIC; Start 09/27/16 at 09:00 Collagenase (Santyl) 1 applic PRN PRN TOP SOILED OR DISLODGED DRESSING; Start 09/27/16 at 05:00 Lansoprazole (Prevacid) 30 mg DAILY@06 GTB Last administered on 11/26/16 06:00 ; Admin Dose 30 MG; Start 09/28/16 at 06:00 Cromolyn Sodium (Nasalcrom) 1 spray QID NASAL Last administered on 11/26/16 17 :23; Admin Dose 1 SPRAY; Start 09/29/16 at 11:02 Phenol (Cepastat Lozenge) 1 lozenge Q2H PRN MT SORE THROAT Last administered on 11/02/16 01:02; Admin Dose 1 LOZENGE; Start 10/01/16 at 19:00 IV Flush (NS 10 ml) 10 ml PRN PRN IV IV PROTOCOL Last administered on 11/17/16 03:20; Admin Dose 10 ML; Start 10/02/16 at 19:00 Hydromorphone HCl (Dilaudid) 0.5 mg Q4H PRN IV PAIN Last administered on 19:41; Admin Dose 0.5 MG; Start 10/06/16 at 18:30 Potassium Chloride 20 meq 20 meq DAILY GTB Last administered on 11/26/16 08:23 ; Admin Dose 20 MEQ; Start 10/30/16 at 12:00 Meropenem (Merrem 500 Mg/ 100 ml (Pmx)) 100 ml @ 200 mls/hr Q8 IVPB Last administered on 11/26/16 21:52; Admin Dose 200 MLS/HR; Start 11/14/16 at 14:00 Acetaminophen (Tylenol Liquid) 650 mg Q6H PRN PEG PAIN AND OR ELEVATED TEMP Last administered on 11/20/16 10:46; Admin Dose 650 MG; Start 11/16/16 at 20:04 Alprazolam (Xanax) 0.5 mg Q12H PRN PEG ANXIETY Last administered on 11/20/16 05 :30; Admin Dose 0.5 MG; Start 11/16/16 at 20:30 Ascorbic Acid (Vitamin C) 500 mg BID PEG Last administered on 11/26/16 21:52; Admin Dose 500 MG; Start 11/16/16 at 21:00 Atorvastatin Calcium (Lipitor) 20 mg QHS PEG Last administered on 11/26/16 21: 50; Admin Dose 20 MG; Start 11/16/16 at 21:00 Diazepam (Valium) 10 mg DAILY PEG Last administered on 11/26/16 08:29; Admin Dose 10 MG; Start 11/17/16 at 09:00 Duloxetine HCl (Cymbalta) 20 mg DAILY PEG Last administered on 11/26/16 08:23 ; Admin Dose 20 MG; Start 11/17/16 at 09:00 Fluconazole (Diflucan) 100 mg DAILY PEG Last administered on 11/26/16 08:23; Admin Dose 100 MG; Start 11/17/16 at 09:00 Lactobacillus Acidophilus (Florajen3 Capsule) 1 each TID PEG Last administered on 11/26/16 21:52; Admin Dose 1 EACH; Start 11/16/16 at 21:00 Metronidazole (Flagyl) 500 mg Q8 PEG Last administered on 11/26/16 21:56; Admin Dose 500 MG; Start 11/16/16 at 22:00 Promethazine HCl/ Codeine (Phenergan/ Codeine) 10 ml BID PRN PEG COUGH Last administered on 11/19/16 15:13; Admin Dose 10 ML; Start 11/16/16 at 20:00 Zolpidem Tartrate (Ambien) 5 mg QHS PRN PEG INSOMNIA; Start 11/16/16 at 20:00 Docusate Sodium (Colace Liquid Cup) 100 mg Q12 PRN GTB CONSTIPATION; Start 11/16 at 20:00 Oxycodone HCl 10 mg 10 mg Q4H PO Last administered on 11/26/16 21:51; Admin Dose 10 MG; Start 11/20/16 at 17:30 Sodium Chloride 1,000 ml @ 50 mls/hr Q20H IV Last administered on 11/26/16 12 :00; Admin Dose 50 MLS/HR; Start 11/23/16 at 04:00 Norepinephrine/ Dextrose (Levophed/D5W) 500 ml @ 1.87 mls/hr TITRATE IV Last administered on 11/26/16 14:21; Admin Dose 9.37 MLS/HR; Start 11/23/16 at 09:00 Midodrine 2.5 mg 2.5 mg TID@08,12,17 NGT Last administered on 11/26/16 17:23; Admin Dose 2.5 MG; Start 11/24/16 at 18:33 Vancomycin HCl (Vancocin) 100 ml @ 100 mls/hr Q12H IVPB Last administered on 17:22; Admin Dose 100 MLS/HR; Start 11/25/16 at 18:00 Miscellaneous Information (*Rx Drug Level Order Reminder*) VANCOMYCIN TROUGH AT 0500 ONCE ONCE XX ; Start 11/27/16 at 05:00; Stop 11/27/16 at 05:01 DYLLAN CARRION MD Nov 26, 2016 22:51
[2016-11-27] VITALS (107 sets, daily range): BP systolic 87–135; BP diastolic 62–97; PULSE 78–127; RESP 0–26
[2016-11-27] MEDS: CROMOLYN 4% 26ML NAS INH NASAL SCH ×5 (00:57→21:30)
[2016-11-27] MEDS: oxyCODONE 5 MG TAB PO SCH ×6 (01:50→23:08)
[2016-11-27] MEDS: SOD CHLORIDE 0.9% 1,000 ML IV SCH (01:54)
[2016-11-27 04:53] LABS: ADD SCAN DIFF NO
[2016-11-27 05:09] LABS: ABNORMAL IP MESSAGE 1; BASOPHIL # 0.1 10^3/ul (0.0-0.1); BASOPHILS % 0.5 % (0.0-2.0); EOSINOPHILS # 0.6 10^3/ul (0.0-0.5); EOSINOPHILS % 2.9 % (0.0-7.0); HEMATOCRIT 26.1 % (37.0-47.0); HEMOGLOBIN 7.6 g/dl (12.0-16.0); LYMPHOCYTES # 2.4 10^3/ul (0.8-2.9); MEAN CORPUSCULAR HEMOGLOBIN 25.7 pg (29.0-33.0); MEAN CORPUSCULAR HGB CONC 29.1 g/dl (32.0-37.0); MEAN CORPUSCULAR VOLUME 88.2 fl (82.0-101.0); MEAN PLATELET VOLUME 8.9 fl (7.4-10.4); MONOCYTE # 1.7 10^3/ul (0.3-0.9); MONOCYTES % 8.4 % (0.0-11.0); NEUTROPHILS % 75.3 % (39.0-77.0); PLATELET COUNT 452 10^3/UL (140-415); RED BLOOD COUNT 2.96 10^6/ul (4.20-5.40); RED CELL DISTRIBUTION WIDTH 18.1 % (11.5-14.5); WHITE BLOOD COUNT 19.9 10^3/ul (4.8-10.8)
[2016-11-27 05:16] LABS: ALBUMIN 2.4 g/dl (3.3-4.9); ALBUMIN/GLOBULIN RATIO 0.52; CALCIUM 8.4 mg/dl (8.4-10.2); CREATININE 0.42 mg/dl (0.44-1.00); POTASSIUM 4.2 mmol/L (3.5-5.1)
[2016-11-27] MEDS: LANSOPRAZOLE 30 MG CAP GTB SCH (06:29)
[2016-11-27] MEDS: LEVOTHYROXINE 125 MCG TAB PEG SCH (06:29)
[2016-11-27] MEDS: VANCOMYCIN 500MG/NS (PMX) 100 ML IVPB SCH ×2 (06:29→18:36)
[2016-11-27] MEDS: MEROPENEM 500 MG/100 ML (PMX) 100 ML IVPB SCH ×3 (06:29→21:32)
[2016-11-27] MEDS: metroNIDAZOLE 500 MG TAB PEG SCH ×3 (06:48→21:31)
[2016-11-27] MEDS: COLLAGENASE 30 GM TUBE TOP SCH (09:00)
[2016-11-27] MEDS: POTASSIUM CHLORIDE 20 MEQ POWDER FOR ORAL SOLN GTB SCH (09:19)
[2016-11-27] MEDS: FLUCONAZOLE 100 MG TAB PEG SCH (09:20)
[2016-11-27] MEDS: DIAZEPAM 5 MG TAB PEG SCH (09:20)
[2016-11-27] MEDS: L ACIDOPHIL/B LACTIS/B LONGUM CAPSULE PEG SCH ×3 (09:21→21:31)
[2016-11-27] MEDS: DULOXETINE 20 MG CAP DR PEG SCH (09:21)
[2016-11-27] MEDS: ASCORBIC ACID 500 MG TAB PEG SCH ×2 (09:21→21:31)
[2016-11-27] MEDS: MIDODRINE 2.5 MG TAB NGT SCH ×3 (09:21→18:36)
--- NOTE | 2016-11-27 09:47 | RADRPT ---
PROCEDURE: XR Chest. CLINICAL INDICATION: Respiratory failure TECHNIQUE: An AP view of the chest was obtained. COMPARISON: Chest x-ray dated 11/25/2016 FINDINGS: The endotracheal tube tip is approximately 4.4 cm above the laura. There is a right upper extrem ity PICC line with tip obscured by overlying monitor lead. There is prominence of the interstitial and central pulmonary vascular markings.. There is consolid ation of the left lower lobe. No pneumothorax is seen. The cardiomediastinal silhouette is mildly enlarged . Calcifications are seen within the aortic arch. The osseous structures demonstrate suhail scent changes. IMPRESSION: 1. Left lower lobe consolidation, concerning for pneumonia. Overall, no significant interval torres e. 2. Findings suggestive of underlying interstitial edema. No significant interval change. 2. Mild cardiomegaly and aortic atherosclerosis. 3. Tubes and lines, as described above. RPTAT: HH .Maisha Jean MD, MD Date Time Electronically viewed and signed by .Maisha Jean MD, MD on 11/27/2016 09:47 .G/
--- NOTE | 2016-11-27 09:57 | CONS ---
Date/Time of Note Date/Time of Note DATE: 11/27/16 TIME: 09:56 Consult Date/Type/Reason Admit Date/Time Sep 26, 2016 at 20:07 Initial Consult Date 11/14/16 Type of Consultation: Pulmonary ICU Ordering Provider: DRE LOBATO MD Subjective Patient remains intubated on mechanical ventilation opens eyes follows simple commands Objective Vital Signs Date Time Temp Pulse Resp B/P Pulse Ox O2 Delivery O2 Flow Rate FiO2 11/27/16 08:00 96 11/27/16 07:40 18 100 30 11/27/16 07:30 92/63 11/27/16 07:00 Mechanical Ventilator 11/27/16 04:30 96.8 Intake and Output 11/26/16 11/26/16 11/27/16 14:59 22:59 06:59 Intake Total 1298.47 ml 1278.71 ml 1062.46 ml Output Total 460 ml 690 ml 700 ml Balance 838.47 ml 588.71 ml 362.46 ml Exam PHYSICAL EXAMINATION GENERAL: Elderly frail lady intubated on mechanical ventilation VITAL SIGNS: see below. HEENT: Pupils equal, round, and reactive to light. CARDIAC: S1, S2, 1/6 systolic ejection murmur CHEST: Diminished air entry bilaterally. ABDOMEN: Mildly distended. Bowel sounds present no guarding or rebound EXTREMITIES: No cyanosis, clubbing edema +1 NEUROLOGIC: Generalized weakness Results/Medications Result Diagram: 11/27/16 0440 11/27/16 0440 Results 24 hrs Laboratory Tests Test 11/26/16 13:15 11/27/16 04:40 Magnesium Level 1.8 White Blood Count 19.9 H Red Blood Count 2.96 L Hemoglobin 7.6 L Hematocrit 26.1 L Mean Corpuscular Volume 88.2 Mean Corpuscular Hemoglobin 25.7 L Mean Corpuscular Hemoglobin Concent 29.1 L Red Cell Distribution Width 18.1 H Platelet Count 452 H Mean Platelet Volume 8.9 Neutrophils % 75.3 Lymphocytes % 12.0 L Monocytes % 8.4 Eosinophils % 2.9 Basophils % 0.5 Nucleated Red Blood Cells % 0.0 Neutrophils # 15.0 H Lymphocytes # 2.4 Monocytes # 1.7 H Eosinophils # 0.6 H Basophils # 0.1 Nucleated Red Blood Cells # 0.0 Sodium Level 134 L Potassium Level 4.2 Chloride Level 96 L Carbon Dioxide Level 31 Anion Gap 11 Blood Urea Nitrogen 14 Creatinine 0.42 L Glucose Level 129 Calcium Level 8.4 Total Bilirubin 0.0 L Direct Bilirubin 0.00 Indirect Bilirubin 0.0 Aspartate Amino Transf (AST/SGOT) 20 Alanine Aminotransferase (ALT/SGPT) 23 Alkaline Phosphatase 169 H Total Protein 7.0 Albumin 2.4 L Globulin 4.60 H Albumin/Globulin Ratio 0.52 Vancomycin Level Trough 14.6 Medications Current Medications Ondansetron HCl (Zofran Inj) 4 mg Q6 PRN IV NAUSEA AND/OR VOMITING; Start 09/26 at 22:30 Collagenase (Santyl) 1 applic DAILY TOP Last administered on 11/23/16 08:20; Admin Dose 1 APPLIC; Start 09/27/16 at 09:00 Collagenase (Santyl) 1 applic PRN PRN TOP SOILED OR DISLODGED DRESSING; Start 09/27/16 at 05:00 Lansoprazole (Prevacid) 30 mg DAILY@06 GTB Last administered on 11/27/16 06:29 ; Admin Dose 30 MG; Start 09/28/16 at 06:00 Cromolyn Sodium (Nasalcrom) 1 spray QID NASAL Last administered on 11/27/16 09 :21; Admin Dose 1 SPRAY; Start 09/29/16 at 11:02 Phenol (Cepastat Lozenge) 1 lozenge Q2H PRN MT SORE THROAT Last administered on 11/02/16 01:02; Admin Dose 1 LOZENGE; Start 10/01/16 at 19:00 IV Flush (NS 10 ml) 10 ml PRN PRN IV IV PROTOCOL Last administered on 11/17/16 03:20; Admin Dose 10 ML; Start 10/02/16 at 19:00 Hydromorphone HCl (Dilaudid) 0.5 mg Q4H PRN IV PAIN Last administered on 19:41; Admin Dose 0.5 MG; Start 10/06/16 at 18:30 Potassium Chloride 20 meq 20 meq DAILY GTB Last administered on 11/27/16 09:19 ; Admin Dose 20 MEQ; Start 10/30/16 at 12:00 Meropenem (Merrem 500 Mg/ 100 ml (Pmx)) 100 ml @ 200 mls/hr Q8 IVPB Last administered on 11/27/16 06:29; Admin Dose 200 MLS/HR; Start 11/14/16 at 14:00 Acetaminophen (Tylenol Liquid) 650 mg Q6H PRN PEG PAIN AND OR ELEVATED TEMP Last administered on 11/20/16 10:46; Admin Dose 650 MG; Start 11/16/16 at 20:04 Alprazolam (Xanax) 0.5 mg Q12H PRN PEG ANXIETY Last administered on 11/20/16 05 :30; Admin Dose 0.5 MG; Start 11/16/16 at 20:30 Ascorbic Acid (Vitamin C) 500 mg BID PEG Last administered on 11/27/16 09:21; Admin Dose 500 MG; Start 11/16/16 at 21:00 Atorvastatin Calcium (Lipitor) 20 mg QHS PEG Last administered on 11/26/16 21: 50; Admin Dose 20 MG; Start 11/16/16 at 21:00 Diazepam (Valium) 10 mg DAILY PEG Last administered on 11/27/16 09:20; Admin Dose 10 MG; Start 11/17/16 at 09:00 Duloxetine HCl (Cymbalta) 20 mg DAILY PEG Last administered on 11/27/16 09:21 ; Admin Dose 20 MG; Start 11/17/16 at 09:00 Fluconazole (Diflucan) 100 mg DAILY PEG Last administered on 11/27/16 09:20; Admin Dose 100 MG; Start 11/17/16 at 09:00 Lactobacillus Acidophilus (Florajen3 Capsule) 1 each TID PEG Last administered on 11/27/16 09:21; Admin Dose 1 EACH; Start 11/16/16 at 21:00 Metronidazole (Flagyl) 500 mg Q8 PEG Last administered on 11/27/16 06:48; Admin Dose 500 MG; Start 11/16/16 at 22:00 Promethazine HCl/ Codeine (Phenergan/ Codeine) 10 ml BID PRN PEG COUGH Last administered on 11/19/16 15:13; Admin Dose 10 ML; Start 11/16/16 at 20:00 Zolpidem Tartrate (Ambien) 5 mg QHS PRN PEG INSOMNIA; Start 11/16/16 at 20:00 Docusate Sodium (Colace Liquid Cup) 100 mg Q12 PRN GTB CONSTIPATION; Start 11/16 at 20:00 Oxycodone HCl 10 mg 10 mg Q4H PO Last administered on 11/27/16 09:20; Admin Dose 10 MG; Start 11/20/16 at 17:30 Sodium Chloride 1,000 ml @ 50 mls/hr Q20H IV Last administered on 11/27/16 01 :54; Admin Dose 50 MLS/HR; Start 11/23/16 at 04:00 Norepinephrine/ Dextrose (Levophed/D5W) 500 ml @ 1.87 mls/hr TITRATE IV Last administered on 11/26/16 14:21; Admin Dose 9.37 MLS/HR; Start 11/23/16 at 09:00 Midodrine 2.5 mg 2.5 mg TID@,,17 NGT Last administered on 11/27/16 09:21; Admin Dose 2.5 MG; Start 11/24/16 at 18:33 Vancomycin HCl (Vancocin) 100 ml @ 100 mls/hr Q12H IVPB Last administered on 06:29; Admin Dose 100 MLS/HR; Start 11/25/16 at 18:00 Assessment/Plan Chief Complaint/Hosp Course IMP: 1. Acute on chronic hypoxemic and hypercapnic respiratory failure now requiring mechanical ventilation 2. Post-obstructive pneumonia 3. Encephalopathy likely toxic metabolic 4. Status post cardiopulmonary arrest 5. Anemia combination of dilutional and chronic anemia 6. Metastatic lung cancer RECS: 1. Continue mechanical ventilation 2. Avoid narcotics/sedatives 3. Continue nasogastric tube feeding 4. Levophed to MAP > 60; consider midodrine via NG,, will consider transfusion 1 unit packed red blood cells 5. BD's/CPT 6. Consider bioethics consultation is overall prognosis very poor 35 min cc time Problems: CASSIE VACA MD, [facility] Nov 27, 2016 09:57
--- NOTE | 2016-11-27 12:50 | PN ---
Date/Time of Note Date/Time of Note DATE: 11/27/16 TIME: 12:45 Assessment/Plan VTE Prophylaxis VTE Prophylaxis Intervention: SCD's Lines/Catheters IV Catheter Type (from [facility]): PICC Line Central line still needed: Yes Urinary Cath still in place: Yes Reason Cath still needed: urinary retention Assessment/Plan Chief Complaint/Hosp Course Patient's continues to be orally intubated on ventilatory support, on levo fed for hemodynamic support. Patient daughter decided to proceed with tracheostomy. Dr. White ENT is asked to see patient. Hemoglobin is 7.6 we will transfuse 2 units of packed red blood cells. ASSESSMENT AND PLAN: - Status post cardiopulmonary arrest. Continue ICU care and ventilatory support. Dr. Hernandez is following in cardiology consultation. - Septic shock, resolving. Dr. Coleman is following in infectious disease consultation. Continue antibiotics per ID. - Acute respiratory failure. Continue breathing treatment, oxygen supply supplementation and bronchodilators. Dr. Lopez is following in pulmonology consultation. - Left lung squamous carcinoma. The patient is not a candidate for chemotherapy. Dr. Calvo is following in oncology consultation. - Chronic obstructive pulmonary disease. Patient with long history of tobacco use. - Anemia of chronic disease. Continue to monitor hemoglobin and hematocrit. - Dysphagia with G-tube. Continue G-tube feeding, monitor residual. Continue aspiration precautions. - Hypothyroidism. Continue Synthroid. - Chronic pain. - Failure to thrive. Continue sequential compression device for deep venous thrombosis prophylaxis and Prevacid for peptic ulcer disease prophylaxis. Further recommendations based on clinical course. Plan of care discussed with Dr. Dozier. Problems: Exam/Review of Systems Vital Signs Vitals Vital Signs Date Time Temp Pulse Resp B/P Pulse Ox O2 Delivery O2 Flow Rate FiO2 11/27/16 11:25 95 18 100 30 11/27/16 10:30 113/76 11/27/16 10:00 Mechanical Ventilator 11/27/16 08:00 98.0 Intake and Output 11/26/16 11/26/16 11/27/16 15:00 23:00 07:00 Intake Total 1406.59 ml 1224.96 ml 1110.59 ml Output Total 435 ml 740 ml 650 ml Balance 971.59 ml 484.96 ml 460.59 ml Exam Constitutional: frail Head: normocephalic ENMT: other (Orally intubated) Respiratory: diminished breath sounds Cardiovascular: nl pulses Gastrointestinal: non-tender, other (G-tube), soft Extremities: normal pulses Skin: other (Multiple wounds) Results Result Diagram: 11/27/16 0440 11/27/16 0440 Results 24 hrs Laboratory Tests Test 11/26/16 13:15 11/27/16 04:40 Magnesium Level 1.8 White Blood Count 19.9 H Red Blood Count 2.96 L Hemoglobin 7.6 L Hematocrit 26.1 L Mean Corpuscular Volume 88.2 Mean Corpuscular Hemoglobin 25.7 L Mean Corpuscular Hemoglobin Concent 29.1 L Red Cell Distribution Width 18.1 H Platelet Count 452 H Mean Platelet Volume 8.9 Neutrophils % 75.3 Lymphocytes % 12.0 L Monocytes % 8.4 Eosinophils % 2.9 Basophils % 0.5 Nucleated Red Blood Cells % 0.0 Neutrophils # 15.0 H Lymphocytes # 2.4 Monocytes # 1.7 H Eosinophils # 0.6 H Basophils # 0.1 Nucleated Red Blood Cells # 0.0 Sodium Level 134 L Potassium Level 4.2 Chloride Level 96 L Carbon Dioxide Level 31 Anion Gap 11 Blood Urea Nitrogen 14 Creatinine 0.42 L Glucose Level 129 Calcium Level 8.4 Total Bilirubin 0.0 L Direct Bilirubin 0.00 Indirect Bilirubin 0.0 Aspartate Amino Transf (AST/SGOT) 20 Alanine Aminotransferase (ALT/SGPT) 23 Alkaline Phosphatase 169 H Total Protein 7.0 Albumin 2.4 L Globulin 4.60 H Albumin/Globulin Ratio 0.52 Vancomycin Level Trough 14.6 Medications Medications Current Medications Ondansetron HCl (Zofran Inj) 4 mg Q6 PRN IV NAUSEA AND/OR VOMITING; Start 09/26 at 22:30 Collagenase (Santyl) 1 applic DAILY TOP Last administered on 11/23/16 08:20; Admin Dose 1 APPLIC; Start 09/27/16 at 09:00 Collagenase (Santyl) 1 applic PRN PRN TOP SOILED OR DISLODGED DRESSING; Start 09/27/16 at 05:00 Lansoprazole (Prevacid) 30 mg DAILY@06 GTB Last administered on 11/27/16 06:29 ; Admin Dose 30 MG; Start 09/28/16 at 06:00 Cromolyn Sodium (Nasalcrom) 1 spray QID NASAL Last administered on 11/27/16 09 :21; Admin Dose 1 SPRAY; Start 09/29/16 at 11:02 Phenol (Cepastat Lozenge) 1 lozenge Q2H PRN MT SORE THROAT Last administered on 11/02/16 01:02; Admin Dose 1 LOZENGE; Start 10/01/16 at 19:00 IV Flush (NS 10 ml) 10 ml PRN PRN IV IV PROTOCOL Last administered on 11/17/16 03:20; Admin Dose 10 ML; Start 10/02/16 at 19:00 Hydromorphone HCl (Dilaudid) 0.5 mg Q4H PRN IV PAIN Last administered on 19:41; Admin Dose 0.5 MG; Start 10/06/16 at 18:30 Potassium Chloride 20 meq 20 meq DAILY GTB Last administered on 11/27/16 09:19 ; Admin Dose 20 MEQ; Start 10/30/16 at 12:00 Meropenem (Merrem 500 Mg/ 100 ml (Pmx)) 100 ml @ 200 mls/hr Q8 IVPB Last administered on 11/27/16 06:29; Admin Dose 200 MLS/HR; Start 11/14/16 at 14:00 Acetaminophen (Tylenol Liquid) 650 mg Q6H PRN PEG PAIN AND OR ELEVATED TEMP Last administered on 11/20/16 10:46; Admin Dose 650 MG; Start 11/16/16 at 20:04 Alprazolam (Xanax) 0.5 mg Q12H PRN PEG ANXIETY Last administered on 11/20/16 05 :30; Admin Dose 0.5 MG; Start 11/16/16 at 20:30 Ascorbic Acid (Vitamin C) 500 mg BID PEG Last administered on 11/27/16 09:21; Admin Dose 500 MG; Start 11/16/16 at 21:00 Atorvastatin Calcium (Lipitor) 20 mg QHS PEG Last administered on 11/26/16 21: 50; Admin Dose 20 MG; Start 11/16/16 at 21:00 Diazepam (Valium) 10 mg DAILY PEG Last administered on 11/27/16 09:20; Admin Dose 10 MG; Start 11/17/16 at 09:00 Duloxetine HCl (Cymbalta) 20 mg DAILY PEG Last administered on 11/27/16 09:21 ; Admin Dose 20 MG; Start 11/17/16 at 09:00 Fluconazole (Diflucan) 100 mg DAILY PEG Last administered on 11/27/16 09:20; Admin Dose 100 MG; Start 11/17/16 at 09:00 Lactobacillus Acidophilus (Florajen3 Capsule) 1 each TID PEG Last administered on 11/27/16 09:21; Admin Dose 1 EACH; Start 11/16/16 at 21:00 Metronidazole (Flagyl) 500 mg Q8 PEG Last administered on 11/27/16 06:48; Admin Dose 500 MG; Start 11/16/16 at 22:00 Promethazine HCl/ Codeine (Phenergan/ Codeine) 10 ml BID PRN PEG COUGH Last administered on 11/19/16 15:13; Admin Dose 10 ML; Start 11/16/16 at 20:00 Zolpidem Tartrate (Ambien) 5 mg QHS PRN PEG INSOMNIA; Start 11/16/16 at 20:00 Docusate Sodium (Colace Liquid Cup) 100 mg Q12 PRN GTB CONSTIPATION; Start 11/16 at 20:00 Oxycodone HCl 10 mg 10 mg Q4H PO Last administered on 11/27/16 09:20; Admin Dose 10 MG; Start 11/20/16 at 17:30 Sodium Chloride 1,000 ml @ 50 mls/hr Q20H IV Last administered on 11/27/16 01 :54; Admin Dose 50 MLS/HR; Start 11/23/16 at 04:00 Norepinephrine/ Dextrose (Levophed/D5W) 500 ml @ 1.87 mls/hr TITRATE IV Last administered on 11/26/16 14:21; Admin Dose 9.37 MLS/HR; Start 11/23/16 at 09:00 Midodrine 2.5 mg 2.5 mg TID@08,,17 NGT Last administered on 11/27/16 09:21; Admin Dose 2.5 MG; Start 11/24/16 at 18:33 Vancomycin HCl (Vancocin) 100 ml @ 100 mls/hr Q12H IVPB Last administered on 06:29; Admin Dose 100 MLS/HR; Start 11/25/16 at 18:00 REBECCA ISLAS Nov 27, 2016 12:50
--- NOTE | 2016-11-27 14:37 | CONS ---
Date/Time of Note Date/Time of Note DATE: 11/27/16 TIME: 14:35 Assessment/Plan Assessment/Plan Additional Assessment/Plan Septic shock Respiratory failure Cardiopulmonary Arrest Hypotension Diastolic congestive heart failure Pulmonary hypertension Preserved ejection fraction Tricuspid valve regurgitation Lung cancer SVT -Patient remains on IV pressor, titrate to maintain SBP greater than 90 and/or map above 60. Vent management as per our pulmonary colleagues. Would consider starting diuretics once off IV pressor and blood pressure remained stable. Consultation Date/Type/Reason Admit Date/Time Sep 26, 2016 at 20:07 Type of Consultation: cv Referring Provider: DRE LOBATO MD 24 HR Interval Summary Free Text/Dictation Patient remains on IV pressor and intubated. As per nursing staff, patient planned to undergo tracheostomy. Otherwise no new cardiac issues as per nursing staff Exam/Review of Systems Vital Signs Vitals Vital Signs Date Time Temp Pulse Resp B/P Pulse Ox O2 Delivery O2 Flow Rate FiO2 11/27/16 13:42 99 19 100 30 11/27/16 13:15 110/75 11/27/16 13:00 Mechanical Ventilator 11/27/16 12:00 98.8 Intake and Output 11/26/16 11/26/16 11/27/16 15:00 23:00 07:00 Intake Total 1406.59 ml 1224.96 ml 1110.59 ml Output Total 435 ml 740 ml 650 ml Balance 971.59 ml 484.96 ml 460.59 ml Exam Sleeping but arousable, no apparent distress Head: normocephalic ENMT: intubated Respiratory: other (Coarse breath sounds bilaterally, no wheezing) Cardiovascular: other (S1-S2 heard), regular rate and rhythm Gastrointestinal: bowel sounds, non-tender, soft Extremities: edema Results Result Diagram: 11/27/16 0440 11/27/16 0440 Results 24 hrs Laboratory Tests Test 11/27/16 04:40 White Blood Count 19.9 H Red Blood Count 2.96 L Hemoglobin 7.6 L Hematocrit 26.1 L Mean Corpuscular Volume 88.2 Mean Corpuscular Hemoglobin 25.7 L Mean Corpuscular Hemoglobin Concent 29.1 L Red Cell Distribution Width 18.1 H Platelet Count 452 H Mean Platelet Volume 8.9 Neutrophils % 75.3 Lymphocytes % 12.0 L Monocytes % 8.4 Eosinophils % 2.9 Basophils % 0.5 Nucleated Red Blood Cells % 0.0 Neutrophils # 15.0 H Lymphocytes # 2.4 Monocytes # 1.7 H Eosinophils # 0.6 H Basophils # 0.1 Nucleated Red Blood Cells # 0.0 Sodium Level 134 L Potassium Level 4.2 Chloride Level 96 L Carbon Dioxide Level 31 Anion Gap 11 Blood Urea Nitrogen 14 Creatinine 0.42 L Glucose Level 129 Calcium Level 8.4 Total Bilirubin 0.0 L Direct Bilirubin 0.00 Indirect Bilirubin 0.0 Aspartate Amino Transf (AST/SGOT) 20 Alanine Aminotransferase (ALT/SGPT) 23 Alkaline Phosphatase 169 H Total Protein 7.0 Albumin 2.4 L Globulin 4.60 H Albumin/Globulin Ratio 0.52 Vancomycin Level Trough 14.6 Medications Medications Current Medications Ondansetron HCl (Zofran Inj) 4 mg Q6 PRN IV NAUSEA AND/OR VOMITING; Start 09/26 at 22:30 Collagenase (Santyl) 1 applic DAILY TOP Last administered on 11/23/16 08:20; Admin Dose 1 APPLIC; Start 09/27/16 at 09:00 Collagenase (Santyl) 1 applic PRN PRN TOP SOILED OR DISLODGED DRESSING; Start 09/27/16 at 05:00 Lansoprazole (Prevacid) 30 mg DAILY@06 GTB Last administered on 11/27/16 06:29 ; Admin Dose 30 MG; Start 09/28/16 at 06:00 Cromolyn Sodium (Nasalcrom) 1 spray QID NASAL Last administered on 11/27/16 09 :21; Admin Dose 1 SPRAY; Start 09/29/16 at 11:02 Phenol (Cepastat Lozenge) 1 lozenge Q2H PRN MT SORE THROAT Last administered on 11/02/16 01:02; Admin Dose 1 LOZENGE; Start 10/01/16 at 19:00 IV Flush (NS 10 ml) 10 ml PRN PRN IV IV PROTOCOL Last administered on 11/17/16 03:20; Admin Dose 10 ML; Start 10/02/16 at 19:00 Hydromorphone HCl (Dilaudid) 0.5 mg Q4H PRN IV PAIN Last administered on 19:41; Admin Dose 0.5 MG; Start 10/06/16 at 18:30 Potassium Chloride 20 meq 20 meq DAILY GTB Last administered on 11/27/16 09:19 ; Admin Dose 20 MEQ; Start 10/30/16 at 12:00 Meropenem (Merrem 500 Mg/ 100 ml (Pmx)) 100 ml @ 200 mls/hr Q8 IVPB Last administered on 11/27/16 06:29; Admin Dose 200 MLS/HR; Start 11/14/16 at 14:00 Acetaminophen (Tylenol Liquid) 650 mg Q6H PRN PEG PAIN AND OR ELEVATED TEMP Last administered on 11/20/16 10:46; Admin Dose 650 MG; Start 11/16/16 at 20:04 Alprazolam (Xanax) 0.5 mg Q12H PRN PEG ANXIETY Last administered on 11/20/16 05 :30; Admin Dose 0.5 MG; Start 11/16/16 at 20:30 Ascorbic Acid (Vitamin C) 500 mg BID PEG Last administered on 11/27/16 09:21; Admin Dose 500 MG; Start 11/16/16 at 21:00 Atorvastatin Calcium (Lipitor) 20 mg QHS PEG Last administered on 11/26/16 21: 50; Admin Dose 20 MG; Start 11/16/16 at 21:00 Diazepam (Valium) 10 mg DAILY PEG Last administered on 11/27/16 09:20; Admin Dose 10 MG; Start 11/17/16 at 09:00 Duloxetine HCl (Cymbalta) 20 mg DAILY PEG Last administered on 11/27/16 09:21 ; Admin Dose 20 MG; Start 11/17/16 at 09:00 Fluconazole (Diflucan) 100 mg DAILY PEG Last administered on 11/27/16 09:20; Admin Dose 100 MG; Start 11/17/16 at 09:00 Lactobacillus Acidophilus (Florajen3 Capsule) 1 each TID PEG Last administered on 11/27/16 09:21; Admin Dose 1 EACH; Start 11/16/16 at 21:00 Metronidazole (Flagyl) 500 mg Q8 PEG Last administered on 11/27/16 06:48; Admin Dose 500 MG; Start 11/16/16 at 22:00 Promethazine HCl/ Codeine (Phenergan/ Codeine) 10 ml BID PRN PEG COUGH Last administered on 11/19/16 15:13; Admin Dose 10 ML; Start 11/16/16 at 20:00 Zolpidem Tartrate (Ambien) 5 mg QHS PRN PEG INSOMNIA; Start 11/16/16 at 20:00 Docusate Sodium (Colace Liquid Cup) 100 mg Q12 PRN GTB CONSTIPATION; Start 11/16 at 20:00 Oxycodone HCl 10 mg 10 mg Q4H PO Last administered on 11/27/16 09:20; Admin Dose 10 MG; Start 11/20/16 at 17:30 Sodium Chloride 1,000 ml @ 50 mls/hr Q20H IV Last administered on 11/27/16 01 :54; Admin Dose 50 MLS/HR; Start 11/23/16 at 04:00 Norepinephrine/ Dextrose (Levophed/D5W) 500 ml @ 1.87 mls/hr TITRATE IV Last administered on 11/26/16 14:21; Admin Dose 9.37 MLS/HR; Start 11/23/16 at 09:00 Midodrine 2.5 mg 2.5 mg TID@08,12,17 NGT Last administered on 11/27/16 09:21; Admin Dose 2.5 MG; Start 11/24/16 at 18:33 Vancomycin HCl (Vancocin) 100 ml @ 100 mls/hr Q12H IVPB Last administered on 06:29; Admin Dose 100 MLS/HR; Start 11/25/16 at 18:00 Artemio Tipton DO Nov 27, 2016 14:37
--- NOTE | 2016-11-27 14:40 | HP ---
DATE OF ADMISSION: 09/26/2016 HISTORY OF PRESENT ILLNESS: Gumaro García is a 66-year-old female admitted to the ICU at [facility] with respiratory failure requiring mechanical ventilation. ENT was consulted to evaluate her for tracheostomy. PAST MEDICAL HISTORY: Metastatic lung cancer, anemia, encephalopathy, pneumonia, respiratory failur e. PAST SURGICAL HISTORY: Noncontributory. ALLERGIES: NO KNOWN DRUG ALLERGIES. MEDICATIONS: 1. Prevacid. 2. Dilaudid. 3. Meropenem. 4. Lipitor. 5. Diazepam. 6. Cymbalta. 7. Diflucan. 8. Florajen. 9. Flagyl. 10. Vancomycin. 11. Midodrine. SOCIAL HISTORY: Positive for tobacco but negative for drug abuse. FAMILY HISTORY: Negative for any heart, lung, kidney, thyroid, or liver disease. REVIEW OF SYSTEMS: The patient is intubated, so review of systems was limited. PHYSICAL EXAMINATION: HEENT: Today the ____ showed that she is intubated. The mucosa is dry, but no lesions are noted. NECK: Reveals no lymphadenopathy or thyromegaly. Trachea is midline. ____ without lesions. No previous cervical scar. IMPRESSION: Respiratory failure, metastatic lung carcinoma. PLAN: At this point, we will plan for tracheostomy at our earliest convenience. Dictated By: BARB DODSON/SANDER Conf#: [id number] DID#: [id number]
--- NOTE | 2016-11-27 16:45 | CONS ---
Date/Time of Note Date/Time of Note DATE: 11/27/16 TIME: 16:43 Assessment/Plan Assessment/Plan Additional Assessment/Plan 1. acute on chronic resp failure intubated on ventilator- not able to wean off 2. PEA s/p resuscitation 3. Hyponatremia multifactorial 4. Pneumonia. 3. Lung cancer. 4. History of Clostridium difficile colitis and recurrent urinary tract infection. 5. Unstageable sacral wound, status post debridement with wound VAC application. PLAN: conitnue IV abx, ID following makign good urine electrolytes stable today plan for tracheostomy ENT has been consulted on the case will follow up Consultation Date/Type/Reason Admit Date/Time Sep 26, 2016 at 20:07 Type of Consultation: NEPHROLOGY Referring Provider: DRE LOBATO MD 24 HR Interval Summary Free Text/Dictation remains intubated, not able to wean off, Plan for tracheostomy Exam/Review of Systems Vital Signs Vitals Vital Signs Date Time Temp Pulse Resp B/P Pulse Ox O2 Delivery O2 Flow Rate FiO2 11/27/16 16:00 95 11/27/16 15:47 18 97 30 11/27/16 15:30 113/71 11/27/16 15:00 Mechanical Ventilator 11/27/16 12:00 98.8 Intake and Output 11/26/16 11/26/16 11/27/16 15:00 23:00 07:00 Intake Total 1406.59 ml 1224.96 ml 1110.59 ml Output Total 435 ml 740 ml 650 ml Balance 971.59 ml 484.96 ml 460.59 ml Exam GENERAL: Chronically ill-appearing, cachectic, elderly woman who is intubated, in no distress. HEENT: Head atraumatic, normocephalic. Sclerae anicteric. Buccal mucosa dry. NECK: Supple. CHEST: Rise symmetrical. Breath sounds diminished. HEART: S1, S2. ABDOMEN: Soft. Bowel tones hypoactive. EXTREMITIES: No cyanosis. Results Result Diagram: 11/27/1643911/27/16439 Results 24 hrs Laboratory Tests Test 11/27/16 04:40 White Blood Count 19.9 H Red Blood Count 2.96 L Hemoglobin 7.6 L Hematocrit 26.1 L Mean Corpuscular Volume 88.2 Mean Corpuscular Hemoglobin 25.7 L Mean Corpuscular Hemoglobin Concent 29.1 L Red Cell Distribution Width 18.1 H Platelet Count 452 H Mean Platelet Volume 8.9 Neutrophils % 75.3 Lymphocytes % 12.0 L Monocytes % 8.4 Eosinophils % 2.9 Basophils % 0.5 Nucleated Red Blood Cells % 0.0 Neutrophils # 15.0 H Lymphocytes # 2.4 Monocytes # 1.7 H Eosinophils # 0.6 H Basophils # 0.1 Nucleated Red Blood Cells # 0.0 Sodium Level 134 L Potassium Level 4.2 Chloride Level 96 L Carbon Dioxide Level 31 Anion Gap 11 Blood Urea Nitrogen 14 Creatinine 0.42 L Glucose Level 129 Calcium Level 8.4 Total Bilirubin 0.0 L Direct Bilirubin 0.00 Indirect Bilirubin 0.0 Aspartate Amino Transf (AST/SGOT) 20 Alanine Aminotransferase (ALT/SGPT) 23 Alkaline Phosphatase 169 H Total Protein 7.0 Albumin 2.4 L Globulin 4.60 H Albumin/Globulin Ratio 0.52 Vancomycin Level Trough 14.6 Medications Medications Current Medications Ondansetron HCl (Zofran Inj) 4 mg Q6 PRN IV NAUSEA AND/OR VOMITING; Start 09/26 at 22:30 Collagenase (Santyl) 1 applic DAILY TOP Last administered on 11/23/16 08:20; Admin Dose 1 APPLIC; Start 09/27/16 at 09:00 Collagenase (Santyl) 1 applic PRN PRN TOP SOILED OR DISLODGED DRESSING; Start 09/27/16 at 05:00 Lansoprazole (Prevacid) 30 mg DAILY@06 GTB Last administered on 11/27/16 06:29 ; Admin Dose 30 MG; Start 09/28/16 at 06:00 Cromolyn Sodium (Nasalcrom) 1 spray QID NASAL Last administered on 11/27/16 13 :00; Admin Dose 1 SPRAY; Start 09/29/16 at 11:02 Phenol (Cepastat Lozenge) 1 lozenge Q2H PRN MT SORE THROAT Last administered on 11/02/16 01:02; Admin Dose 1 LOZENGE; Start 10/01/16 at 19:00 IV Flush (NS 10 ml) 10 ml PRN PRN IV IV PROTOCOL Last administered on 11/17/16 03:20; Admin Dose 10 ML; Start 10/02/16 at 19:00 Hydromorphone HCl (Dilaudid) 0.5 mg Q4H PRN IV PAIN Last administered on 19:41; Admin Dose 0.5 MG; Start 10/06/16 at 18:30 Potassium Chloride 20 meq 20 meq DAILY GTB Last administered on 11/27/16 09:19 ; Admin Dose 20 MEQ; Start 10/30/16 at 12:00 Meropenem (Merrem 500 Mg/ 100 ml (Pmx)) 100 ml @ 200 mls/hr Q8 IVPB Last administered on 11/27/16 14:40; Admin Dose 200 MLS/HR; Start 11/14/16 at 14:00 Acetaminophen (Tylenol Liquid) 650 mg Q6H PRN PEG PAIN AND OR ELEVATED TEMP Last administered on 11/20/16 10:46; Admin Dose 650 MG; Start 11/16/16 at 20:04 Alprazolam (Xanax) 0.5 mg Q12H PRN PEG ANXIETY Last administered on 11/20/16 05 :30; Admin Dose 0.5 MG; Start 11/16/16 at 20:30 Ascorbic Acid (Vitamin C) 500 mg BID PEG Last administered on 11/27/16 09:21; Admin Dose 500 MG; Start 11/16/16 at 21:00 Atorvastatin Calcium (Lipitor) 20 mg QHS PEG Last administered on 11/26/16 21: 50; Admin Dose 20 MG; Start 11/16/16 at 21:00 Diazepam (Valium) 10 mg DAILY PEG Last administered on 11/27/16 09:20; Admin Dose 10 MG; Start 11/17/16 at 09:00 Duloxetine HCl (Cymbalta) 20 mg DAILY PEG Last administered on 11/27/16 09:21 ; Admin Dose 20 MG; Start 11/17/16 at 09:00 Fluconazole (Diflucan) 100 mg DAILY PEG Last administered on 11/27/16 09:20; Admin Dose 100 MG; Start 11/17/16 at 09:00 Lactobacillus Acidophilus (Florajen3 Capsule) 1 each TID PEG Last administered on 11/27/16 13:00; Admin Dose 1 EACH; Start 11/16/16 at 21:00 Metronidazole (Flagyl) 500 mg Q8 PEG Last administered on 11/27/16 14:40; Admin Dose 500 MG; Start 11/16/16 at 22:00 Promethazine HCl/ Codeine (Phenergan/ Codeine) 10 ml BID PRN PEG COUGH Last administered on 11/19/16 15:13; Admin Dose 10 ML; Start 11/16/16 at 20:00 Zolpidem Tartrate (Ambien) 5 mg QHS PRN PEG INSOMNIA; Start 11/16/16 at 20:00 Docusate Sodium (Colace Liquid Cup) 100 mg Q12 PRN GTB CONSTIPATION; Start 11/16 at 20:00 Oxycodone HCl 10 mg 10 mg Q4H PO Last administered on 11/27/16 13:30; Admin Dose 10 MG; Start 11/20/16 at 17:30 Sodium Chloride 1,000 ml @ 50 mls/hr Q20H IV Last administered on 11/27/16 01 :54; Admin Dose 50 MLS/HR; Start 11/23/16 at 04:00 Norepinephrine/ Dextrose (Levophed/D5W) 500 ml @ 1.87 mls/hr TITRATE IV Last administered on 11/26/16 14:21; Admin Dose 9.37 MLS/HR; Start 11/23/16 at 09:00 Midodrine 2.5 mg 2.5 mg TID@08,12,17 NGT Last administered on 11/27/16 13:00; Admin Dose 2.5 MG; Start 11/24/16 at 18:33 Vancomycin HCl (Vancocin) 100 ml @ 100 mls/hr Q12H IVPB Last administered on 06:29; Admin Dose 100 MLS/HR; Start 11/25/16 at 18:00 DIONNE SAUCEDA MD Nov 27, 2016 16:45
[2016-11-27] MEDS: ATORVASTATIN 20 MG TAB PEG SCH (21:31)
--- NOTE | 2016-11-27 21:58 | CONS ---
Date/Time of Note Date/Time of Note DATE: 11/27/16 TIME: 21:56 Assessment/Plan Assessment/Plan Chief Complaint/Hosp Course Left lung squamous carcinoma. The patient is not a candidate for chemotherapy. Anemia of chronic disease. post 8 u prbc monitor blood count closely transfuse as needed to keep HB above 8 Acute respiratory insufficiency requiring BiPAP. trach -per daughter's wishes Acute shock, septic versus hypovolemic. tachycardia with episode of SVT. Chronic obstructive pulmonary disease. Dysphagia with G-tube. Continue current G-tube feeding. Hypothyroidism. Continue Synthroid. Problems: Consultation Date/Type/Reason Admit Date/Time Sep 26, 2016 at 20:07 Initial Consult Date 10/19/16 [facility] Referring Provider: DRE LOBATO MD 24 HR Interval Summary Free Text/Dictation Patient's continues to be orally intubated on ventilatory support, on levo fed for hemodynamic support. Patient daughter decided to proceed with tracheostomy. Dr. White ENT is asked to see patient. Hemoglobin is 7.6- we will transfuse 2 units of packed red blood cells. Exam/Review of Systems Vital Signs Vitals Vital Signs Date Time Temp Pulse Resp B/P Pulse Ox O2 Delivery O2 Flow Rate FiO2 11/27/16 18:00 126 19 117/72 100 Mechanical Ventilator 11/27/16 17:18 30 11/27/16 16:00 98.0 Intake and Output 11/26/16 11/26/16 11/27/16 15:00 23:00 07:00 Intake Total 1406.59 ml 1224.96 ml 1110.59 ml Output Total 435 ml 740 ml 650 ml Balance 971.59 ml 484.96 ml 460.59 ml Exam Constitutional: alert, oriented (to name only) Respiratory: clear to auscultation, normal air movement, other (remains intubated) Cardiovascular: nl pulses, other (Slightly Tachy -110), regular rate and rhythm Gastrointestinal: non-tender, soft Musculoskeletal: muscle weakness Extremities: normal pulses Neurological: other (responsive to name , pain, touch) Skin: other Results Result Diagram: 11/27/16 0440 11/27/16 0440 Results 24 hrs Laboratory Tests Test 11/27/16 04:40 White Blood Count 19.9 H Red Blood Count 2.96 L Hemoglobin 7.6 L Hematocrit 26.1 L Mean Corpuscular Volume 88.2 Mean Corpuscular Hemoglobin 25.7 L Mean Corpuscular Hemoglobin Concent 29.1 L Red Cell Distribution Width 18.1 H Platelet Count 452 H Mean Platelet Volume 8.9 Neutrophils % 75.3 Lymphocytes % 12.0 L Monocytes % 8.4 Eosinophils % 2.9 Basophils % 0.5 Nucleated Red Blood Cells % 0.0 Neutrophils # 15.0 H Lymphocytes # 2.4 Monocytes # 1.7 H Eosinophils # 0.6 H Basophils # 0.1 Nucleated Red Blood Cells # 0.0 Sodium Level 134 L Potassium Level 4.2 Chloride Level 96 L Carbon Dioxide Level 31 Anion Gap 11 Blood Urea Nitrogen 14 Creatinine 0.42 L Glucose Level 129 Calcium Level 8.4 Total Bilirubin 0.0 L Direct Bilirubin 0.00 Indirect Bilirubin 0.0 Aspartate Amino Transf (AST/SGOT) 20 Alanine Aminotransferase (ALT/SGPT) 23 Alkaline Phosphatase 169 H Total Protein 7.0 Albumin 2.4 L Globulin 4.60 H Albumin/Globulin Ratio 0.52 Vancomycin Level Trough 14.6 Medications Medications Current Medications Ondansetron HCl (Zofran Inj) 4 mg Q6 PRN IV NAUSEA AND/OR VOMITING; Start 09/26 at 22:30 Collagenase (Santyl) 1 applic DAILY TOP Last administered on 11/23/16 08:20; Admin Dose 1 APPLIC; Start 09/27/16 at 09:00 Collagenase (Santyl) 1 applic PRN PRN TOP SOILED OR DISLODGED DRESSING; Start 09/27/16 at 05:00 Lansoprazole (Prevacid) 30 mg DAILY@06 GTB Last administered on 11/27/16 06:29 ; Admin Dose 30 MG; Start 09/28/16 at 06:00 Cromolyn Sodium (Nasalcrom) 1 spray QID NASAL Last administered on 11/27/16 21 :30; Admin Dose 1 SPRAY; Start 09/29/16 at 11:02 Phenol (Cepastat Lozenge) 1 lozenge Q2H PRN MT SORE THROAT Last administered on 11/02/16 01:02; Admin Dose 1 LOZENGE; Start 10/01/16 at 19:00 IV Flush (NS 10 ml) 10 ml PRN PRN IV IV PROTOCOL Last administered on 11/17/16 03:20; Admin Dose 10 ML; Start 10/02/16 at 19:00 Hydromorphone HCl (Dilaudid) 0.5 mg Q4H PRN IV PAIN Last administered on 19:41; Admin Dose 0.5 MG; Start 10/06/16 at 18:30 Potassium Chloride 20 meq 20 meq DAILY GTB Last administered on 11/27/16 09:19 ; Admin Dose 20 MEQ; Start 10/30/16 at 12:00 Meropenem (Merrem 500 Mg/ 100 ml (Pmx)) 100 ml @ 200 mls/hr Q8 IVPB Last administered on 11/27/16 21:32; Admin Dose 200 MLS/HR; Start 11/14/16 at 14:00 Acetaminophen (Tylenol Liquid) 650 mg Q6H PRN PEG PAIN AND OR ELEVATED TEMP Last administered on 11/20/16 10:46; Admin Dose 650 MG; Start 11/16/16 at 20:04 Alprazolam (Xanax) 0.5 mg Q12H PRN PEG ANXIETY Last administered on 11/20/16 05 :30; Admin Dose 0.5 MG; Start 11/16/16 at 20:30 Ascorbic Acid (Vitamin C) 500 mg BID PEG Last administered on 11/27/16 21:31; Admin Dose 500 MG; Start 11/16/16 at 21:00 Atorvastatin Calcium (Lipitor) 20 mg QHS PEG Last administered on 11/27/16 21: 31; Admin Dose 20 MG; Start 11/16/16 at 21:00 Diazepam (Valium) 10 mg DAILY PEG Last administered on 11/27/16 09:20; Admin Dose 10 MG; Start 11/17/16 at 09:00 Duloxetine HCl (Cymbalta) 20 mg DAILY PEG Last administered on 11/27/16 09:21 ; Admin Dose 20 MG; Start 11/17/16 at 09:00 Fluconazole (Diflucan) 100 mg DAILY PEG Last administered on 11/27/16 09:20; Admin Dose 100 MG; Start 11/17/16 at 09:00 Lactobacillus Acidophilus (Florajen3 Capsule) 1 each TID PEG Last administered on 11/27/16 21:31; Admin Dose 1 EACH; Start 11/16/16 at 21:00 Metronidazole (Flagyl) 500 mg Q8 PEG Last administered on 11/27/16 21:31; Admin Dose 500 MG; Start 11/16/16 at 22:00 Promethazine HCl/ Codeine (Phenergan/ Codeine) 10 ml BID PRN PEG COUGH Last administered on 11/19/16 15:13; Admin Dose 10 ML; Start 11/16/16 at 20:00 Zolpidem Tartrate (Ambien) 5 mg QHS PRN PEG INSOMNIA; Start 11/16/16 at 20:00 Docusate Sodium (Colace Liquid Cup) 100 mg Q12 PRN GTB CONSTIPATION; Start 11/16 at 20:00 Oxycodone HCl 10 mg 10 mg Q4H PO Last administered on 11/27/16 18:36; Admin Dose 10 MG; Start 11/20/16 at 17:30 Sodium Chloride 1,000 ml @ 50 mls/hr Q20H IV Last administered on 11/27/16 01 :54; Admin Dose 50 MLS/HR; Start 11/23/16 at 04:00 Norepinephrine/ Dextrose (Levophed/D5W) 500 ml @ 1.87 mls/hr TITRATE IV Last administered on 11/26/16 14:21; Admin Dose 9.37 MLS/HR; Start 11/23/16 at 09:00 Midodrine 2.5 mg 2.5 mg TID@08,12,17 NGT Last administered on 11/27/16 18:36; Admin Dose 2.5 MG; Start 11/24/16 at 18:33 Vancomycin HCl (Vancocin) 100 ml @ 100 mls/hr Q12H IVPB Last administered on 18:36; Admin Dose 100 MLS/HR; Start 11/25/16 at 18:00 DYLLAN CARRION MD Nov 27, 2016 21:58
[2016-11-28] VITALS (102 sets, daily range): BP systolic 75–128; BP diastolic 50–91; PULSE 107–140; RESP 0–25
[2016-11-28] MEDS: oxyCODONE 5 MG TAB PO SCH ×6 (02:46→21:15)
[2016-11-28] MEDS: SOD CHLORIDE 0.9% 1,000 ML IV SCH (02:46)
[2016-11-28] MEDS: LANSOPRAZOLE 30 MG CAP GTB SCH (05:34)
[2016-11-28] MEDS: metroNIDAZOLE 500 MG TAB PEG SCH ×3 (05:35→21:15)
[2016-11-28] MEDS: VANCOMYCIN 500MG/NS (PMX) 100 ML IVPB SCH ×2 (05:35→18:06)
[2016-11-28] MEDS: MEROPENEM 500 MG/100 ML (PMX) 100 ML IVPB SCH ×3 (05:35→21:15)
[2016-11-28 06:42] LABS: ADD SCAN DIFF NO
[2016-11-28 06:55] LABS: ABNORMAL IP MESSAGE 1; BASOPHIL # 0.1 10^3/ul (0.0-0.1); BASOPHILS % 0.5 % (0.0-2.0); EOSINOPHILS # 0.4 10^3/ul (0.0-0.5); HEMATOCRIT 23.2 % (37.0-47.0); HEMOGLOBIN 7.1 g/dl (12.0-16.0); LYMPHOCYTES # 2.5 10^3/ul (0.8-2.9); LYMPHOCYTES % 11.9 % (15.0-51.0); MEAN CORPUSCULAR HEMOGLOBIN 26.8 pg (29.0-33.0); MEAN CORPUSCULAR HGB CONC 30.6 g/dl (32.0-37.0); MEAN CORPUSCULAR VOLUME 87.5 fl (82.0-101.0); MEAN PLATELET VOLUME 9.8 fl (7.4-10.4); MONOCYTE # 1.7 10^3/ul (0.3-0.9); MONOCYTES % 8.2 % (0.0-11.0); NEUTROPHIL # 15.8 10^3/ul (1.6-7.5); NEUTROPHILS % 76.4 % (39.0-77.0); PLATELET COUNT 465 10^3/UL (140-415); RED BLOOD COUNT 2.65 10^6/ul (4.20-5.40); RED CELL DISTRIBUTION WIDTH 17.7 % (11.5-14.5); WHITE BLOOD COUNT 20.7 10^3/ul (4.8-10.8)
[2016-11-28] MEDS ORDERED: LIDOCAINE 2%/EPI 30 ML INJ ONE (06:56)
[2016-11-28] MEDS ORDERED: SODIUM CL BACTERIOSTATIC 30 ML INJ ONE (06:56)
--- NOTE | 2016-11-28 07:13 | PN ---
DATE: 11/27/2016 INFECTIOUS DISEASE PROGRESS NOTE SUBJECTIVE: Patient remains intubated on Levophed drip at 4 mcg per minute. She is afebrile, in no distress. WBC 19.9, platelets 452, no shift, no bands. BUN 14, creatinine 0.42. INDWELLINGS: PICC line, endotracheal tube, PEG, George. ANTIMICROBIALS: Patient remains on: 1. Vancomycin. 2. Meropenem. 3. Flagyl. 4. Fluconazole. DIAGNOSTICS: Chest x-ray this morning revealed left lower lobe consolidation concerning for pneumon ia. PHYSICAL EXAMINATION: GENERAL: Cachectic, elderly -[place] woman who is intubated, in no distress. HEENT: Head atraumatic, normocephalic. Sclerae anicteric. Buccal mucosa dry. NECK: Supple. CHEST: Rise symmetrical. Breath sounds with scattered rhonchi. HEART: S1, S2. ABDOMEN: Soft. Bowel tones present. ASSESSMENT 1. Severe sepsis with shock and multisystem organ failure. 2. Status post cardiopulmonary arrest. 3. Acute respiratory failure, possible aspiration pneumonia. 4. Lung cancer. 5. History of urinary tract infection and Clostridium difficile colitis. 6. Unstageable sacral decubitus, status post debridement with wound VAC application. 7. Persistent leukocytosis, multifactorial. PLAN: The patient remains unchanged. Covered with broad spectrum antibiotics. She is being follow ed by multiple consultants. Continue present care. Dictated By: RUBIN MAYEN STONE HAND for JUAN COLLIER/NTS Conf#: [id number] DID#: [id number]
[2016-11-28 07:22] LABS: INR 1.34; PROTIME 16.7 Sec (12.2-14.2); PT RATIO 1.3
[2016-11-28 07:23] LABS: PARTIAL THROMBOPLASTIN TIME 46.8 Sec (25.0-35.0); THROMBIN TIME 20.7 SEC (13.8-19.1)
[2016-11-28] MEDS ORDERED: MIDAZOLAM 1 MG/ML 2 ML INJ ONE (07:44)
[2016-11-28] MEDS ORDERED: PHENYLephrine (100 MCG/ML) 5ML SYG ONE (07:50)
[2016-11-28] MEDS: COLLAGENASE 30 GM TUBE TOP SCH (09:00)
--- NOTE | 2016-11-28 11:13 | CONS ---
Date/Time of Note Date/Time of Note DATE: 11/28/16 TIME: 11:10 Assessment/Plan Assessment/Plan Additional Assessment/Plan Ventilator setting; AC of 18, tidal volume 450, PEEP of 5, 30% FiO2. Patient currently on Levophed at 3 mics per minute. Next Assessment recommendations; 1. Patient admitted for severe sepsis from sacral decubitus wound currently on appropriate broad-spectrum antibiotic coverage. 2. Chronic respiratory failure, status post tracheostomy. 3. Status post CPR. 4. Poor mental status. 5. Underlying lung malignancy. 6. Anemia. 7. Hypotension. Due to current supportive care. Overall prognosis remains very poor. Consultation Date/Type/Reason Admit Date/Time Sep 26, 2016 at 20:07 Initial Consult Date 11/14/16 Type of Consultation: Pulmonary/critical care Referring Provider: DRE LOBATO MD 24 HR Interval Summary Free Text/Dictation Patient's condition remains tenuous at best. She just returned from tracheostomy. Remains essentially unresponsive. Has remained hemodynamically stable. No untoward events reported. Shalonda; elderly woman, on ventilator via tracheostomy currently in no distress. Unresponsive. Exam/Review of Systems Vital Signs Vitals Vital Signs Date Time Temp Pulse Resp B/P Pulse Ox O2 Delivery O2 Flow Rate FiO2 11/28/16 09:00 110 11/28/16 08:50 99.0 11/28/16 07:00 18 110/76 99 Mechanical Ventilator 11/28/16 05:20 30 Intake and Output 11/27/16 11/27/16 11/28/16 15:00 23:00 07:00 Intake Total 1200.0 ml 1192.5 ml 882.48 ml Output Total 820 ml 950 ml 750 ml Balance 380.0 ml 242.5 ml 132.48 ml Exam HEENT exam; supple neck, patient has multiple carious teeth. Pupils are small bilaterally. No neck masses. No thyromegaly. Colostomy in place. There is mild oozing of around the insertion site. Chest examination; diminished but clear vessel. S1-S2 audible, no murmurs. Regular rhythm. Abdomen examination; soft, G-tube in place. Not distended. Bowel sounds audible. Extremity examination; no peripheral edema. RULING MACHINE OPERATOR examination; patient is unresponsive. Results Result Diagram: 11/28/16 0430 11/27/16 0440 Results 24 hrs Laboratory Tests Test 11/28/16 04:30 White Blood Count 20.7 H Red Blood Count 2.65 L Hemoglobin 7.1 L Hematocrit 23.2 L Mean Corpuscular Volume 87.5 Mean Corpuscular Hemoglobin 26.8 L Mean Corpuscular Hemoglobin Concent 30.6 L Red Cell Distribution Width 17.7 H Platelet Count 465 H Mean Platelet Volume 9.8 Neutrophils % 76.4 Lymphocytes % 11.9 L Monocytes % 8.2 Eosinophils % 2.0 Basophils % 0.5 Nucleated Red Blood Cells % 0.0 Neutrophils # 15.8 H Lymphocytes # 2.5 Monocytes # 1.7 H Eosinophils # 0.4 Basophils # 0.1 Nucleated Red Blood Cells # 0.0 Prothrombin Time 16.7 H Prothrombin Time Ratio 1.3 INR International Normalized Ratio 1.34 Activated Partial Thromboplast Time 46.8 H Thrombin Time 20.7 H Medications Medications Current Medications Ondansetron HCl (Zofran Inj) 4 mg Q6 PRN IV NAUSEA AND/OR VOMITING; Start 09/26 at 22:30 Collagenase (Santyl) 1 applic DAILY TOP Last administered on 11/23/16 08:20; Admin Dose 1 APPLIC; Start 09/27/16 at 09:00 Collagenase (Santyl) 1 applic PRN PRN TOP SOILED OR DISLODGED DRESSING; Start 09/27/16 at 05:00 Lansoprazole (Prevacid) 30 mg DAILY@06 GTB Last administered on 11/28/16 05:34 ; Admin Dose 30 MG; Start 09/28/16 at 06:00 Cromolyn Sodium (Nasalcrom) 1 spray QID NASAL Last administered on 11/27/16 21 :30; Admin Dose 1 SPRAY; Start 09/29/16 at 11:02 Phenol (Cepastat Lozenge) 1 lozenge Q2H PRN MT SORE THROAT Last administered on 11/02/16 01:02; Admin Dose 1 LOZENGE; Start 10/01/16 at 19:00 IV Flush (NS 10 ml) 10 ml PRN PRN IV IV PROTOCOL Last administered on 11/17/16 03:20; Admin Dose 10 ML; Start 10/02/16 at 19:00 Hydromorphone HCl (Dilaudid) 0.5 mg Q4H PRN IV PAIN Last administered on 19:41; Admin Dose 0.5 MG; Start 10/06/16 at 18:30 Potassium Chloride 20 meq 20 meq DAILY GTB Last administered on 11/27/16 09:19 ; Admin Dose 20 MEQ; Start 10/30/16 at 12:00 Meropenem (Merrem 500 Mg/ 100 ml (Pmx)) 100 ml @ 200 mls/hr Q8 IVPB Last administered on 11/28/16 05:35; Admin Dose 200 MLS/HR; Start 11/14/16 at 14:00 Acetaminophen (Tylenol Liquid) 650 mg Q6H PRN PEG PAIN AND OR ELEVATED TEMP Last administered on 11/20/16 10:46; Admin Dose 650 MG; Start 11/16/16 at 20:04 Alprazolam (Xanax) 0.5 mg Q12H PRN PEG ANXIETY Last administered on 11/20/16 05 :30; Admin Dose 0.5 MG; Start 11/16/16 at 20:30 Ascorbic Acid (Vitamin C) 500 mg BID PEG Last administered on 11/27/16 21:31; Admin Dose 500 MG; Start 11/16/16 at 21:00 Atorvastatin Calcium (Lipitor) 20 mg QHS PEG Last administered on 11/27/16 21: 31; Admin Dose 20 MG; Start 11/16/16 at 21:00 Diazepam (Valium) 10 mg DAILY PEG Last administered on 11/27/16 09:20; Admin Dose 10 MG; Start 11/17/16 at 09:00 Duloxetine HCl (Cymbalta) 20 mg DAILY PEG Last administered on 11/27/16 09:21 ; Admin Dose 20 MG; Start 11/17/16 at 09:00 Fluconazole (Diflucan) 100 mg DAILY PEG Last administered on 11/27/16 09:20; Admin Dose 100 MG; Start 11/17/16 at 09:00 Lactobacillus Acidophilus (Florajen3 Capsule) 1 each TID PEG Last administered on 11/27/16 21:31; Admin Dose 1 EACH; Start 11/16/16 at 21:00 Metronidazole (Flagyl) 500 mg Q8 PEG Last administered on 11/28/16 05:35; Admin Dose 500 MG; Start 11/16/16 at 22:00 Promethazine HCl/ Codeine (Phenergan/ Codeine) 10 ml BID PRN PEG COUGH Last administered on 11/19/16 15:13; Admin Dose 10 ML; Start 11/16/16 at 20:00 Zolpidem Tartrate (Ambien) 5 mg QHS PRN PEG INSOMNIA; Start 11/16/16 at 20:00 Docusate Sodium (Colace Liquid Cup) 100 mg Q12 PRN GTB CONSTIPATION; Start 11/16 at 20:00 Oxycodone HCl 10 mg 10 mg Q4H PO Last administered on 11/28/16 05:35; Admin Dose 10 MG; Start 11/20/16 at 17:30 Sodium Chloride 1,000 ml @ 50 mls/hr Q20H IV Last administered on 11/28/16 02 :46; Admin Dose 50 MLS/HR; Start 11/23/16 at 04:00 Norepinephrine/ Dextrose (Levophed/D5W) 500 ml @ 1.87 mls/hr TITRATE IV Last administered on 11/26/16 14:21; Admin Dose 9.37 MLS/HR; Start 11/23/16 at 09:00 Midodrine 2.5 mg 2.5 mg TID@08,12,17 NGT Last administered on 11/27/16 18:36; Admin Dose 2.5 MG; Start 11/24/16 at 18:33 Vancomycin HCl (Vancocin) 100 ml @ 100 mls/hr Q12H IVPB Last administered on 05:35; Admin Dose 100 MLS/HR; Start 11/25/16 at 18:00 REGINE BUCKLEY Nov 28, 2016 11:13
[2016-11-28] MEDS: DULOXETINE 20 MG CAP DR PEG SCH (11:34)
[2016-11-28] MEDS: POTASSIUM CHLORIDE 20 MEQ POWDER FOR ORAL SOLN GTB SCH (11:34)
[2016-11-28] MEDS: FLUCONAZOLE 100 MG TAB PEG SCH (11:35)
[2016-11-28] MEDS: ASCORBIC ACID 500 MG TAB PEG SCH ×2 (11:35→21:15)
[2016-11-28] MEDS: MIDODRINE 2.5 MG TAB NGT SCH ×3 (11:35→18:06)
[2016-11-28] MEDS: L ACIDOPHIL/B LACTIS/B LONGUM CAPSULE PEG SCH ×3 (11:35→21:16)
[2016-11-28] MEDS: LEVOTHYROXINE 125 MCG TAB PEG SCH (11:36)
[2016-11-28] MEDS: DIAZEPAM 5 MG TAB PEG SCH (11:36)
[2016-11-28] MEDS: CROMOLYN 4% 26ML NAS INH NASAL SCH ×4 (11:36→21:16)
--- NOTE | 2016-11-28 11:40 | OPR ---
DATE OF OPERATION: PREOPERATIVE DIAGNOSES: 1. Respiratory failure. 2. Metastatic lung cancer. POSTOPERATIVE DIAGNOSES: 1. Respiratory failure. 2. Metastatic lung cancer. PROCEDURE PERFORMED: Tracheostomy with Tristen flap. SURGEON: Barb White MD ANESTHESIA: General. COMPLICATIONS: None. ESTIMATED BLOOD LOSS: Minimal. DESCRIPTION OF PROCEDURE: After informed consent was obtained, the patient was brought to the opera tin room, placed in the supine position. General anesthesia was then induced. The patient was the n prepped and draped in the standard fashion. The incision was marked out and injected with 1% lido sherri with 1:100,000 epinephrine. After a sufficient period of time had elapsed, was undertak en to proceed using a 15 blade through the skin and using electrocautery we were able to dissect gala ply through the platysmal layer and that was reflected laterally down to the strap muscles, those we re reflected laterally. We were able to identify the thyroid and divide in the midline. At this po int, a cut was made between the 2nd and 3rd tracheal rings, the Tristen flap was created and fashioned using a 4-0 chromic stitch. At this point, the endotracheal tube was brought back proximally until it could no longer be seen through the wound and the #6 tracheostomy tube was placed without diffic ulty. At this point, tracheal ties were placed, 2 simple silk sutures were used to fixate the trach eostomy tube to the skin. The patient was then awakened and transferred back to the ICU in stable c ondition. Dictated By: BARB DODSON/SANDER Conf#: [id number] DID#: [id number]
--- NOTE | 2016-11-28 11:49 | CONS ---
Date/Time of Note Date/Time of Note DATE: 11/28/16 TIME: 11:48 Assessment/Plan Assessment/Plan Chief Complaint/Hosp Course SUBJECTIVE: S/p trach, awake, c/o pain, looks comfortable, afebrile. On Levophed gtt INDWELLINGS: Trach, PEG, George, PICC line. ANTIMICROBIALS: 1. Fluconazole. 2. Flagyl. 3. Vancomycin. 4. Meropenem. PHYSICAL EXAMINATION: GENERAL: Chronically ill-appearing, cachectic, elderly woman who is intubated, in no distress. HEENT: Head atraumatic, normocephalic. Sclerae anicteric. Buccal mucosa dry. NECK: Supple. CHEST: Rise symmetrical. Breath sounds diminished. HEART: S1, S2. ABDOMEN: Soft. Bowel tones hypoactive. EXTREMITIES: No cyanosis. ASSESSMENT: 1. Acute on chronic respiratory failure, status post cardiopulmonary arrest. 2. Pneumonia. 3. Lung cancer. 4. History of Clostridium difficile colitis and recurrent urinary tract infection. 5. Unstageable sacral wound, status post debridement with wound VAC application. PLAN: Clinically unchanged, s/p trach, still on Levophed gtt, covered with broad spectrum antibiotics. KARRI RN Problems: Consultation Date/Type/Reason Admit Date/Time Sep 26, 2016 at 20:07 Type of Consultation: ID Referring Provider: DRE LOBATO MD Exam/Review of Systems Vital Signs Vitals Vital Signs Date Time Temp Pulse Resp B/P Pulse Ox O2 Delivery O2 Flow Rate FiO2 11/28/16 09:00 110 11/28/16 08:50 99.0 11/28/16 07:00 18 110/76 99 Mechanical Ventilator 11/28/16 05:20 30 Intake and Output 11/27/16 11/27/16 11/28/16 15:00 23:00 07:00 Intake Total 1200.0 ml 1192.5 ml 882.48 ml Output Total 820 ml 950 ml 750 ml Balance 380.0 ml 242.5 ml 132.48 ml Results Result Diagram: 11/28/16 0430 11/27/16 0440 Results 24 hrs Laboratory Tests Test 11/28/16 04:30 White Blood Count 20.7 H Red Blood Count 2.65 L Hemoglobin 7.1 L Hematocrit 23.2 L Mean Corpuscular Volume 87.5 Mean Corpuscular Hemoglobin 26.8 L Mean Corpuscular Hemoglobin Concent 30.6 L Red Cell Distribution Width 17.7 H Platelet Count 465 H Mean Platelet Volume 9.8 Neutrophils % 76.4 Lymphocytes % 11.9 L Monocytes % 8.2 Eosinophils % 2.0 Basophils % 0.5 Nucleated Red Blood Cells % 0.0 Neutrophils # 15.8 H Lymphocytes # 2.5 Monocytes # 1.7 H Eosinophils # 0.4 Basophils # 0.1 Nucleated Red Blood Cells # 0.0 Prothrombin Time 16.7 H Prothrombin Time Ratio 1.3 INR International Normalized Ratio 1.34 Activated Partial Thromboplast Time 46.8 H Thrombin Time 20.7 H Medications Medications Current Medications Ondansetron HCl (Zofran Inj) 4 mg Q6 PRN IV NAUSEA AND/OR VOMITING; Start 09/26 at 22:30 Collagenase (Santyl) 1 applic DAILY TOP Last administered on 11/23/16 08:20; Admin Dose 1 APPLIC; Start 09/27/16 at 09:00 Collagenase (Santyl) 1 applic PRN PRN TOP SOILED OR DISLODGED DRESSING; Start 09/27/16 at 05:00 Lansoprazole (Prevacid) 30 mg DAILY@06 GTB Last administered on 11/28/16 05:34 ; Admin Dose 30 MG; Start 09/28/16 at 06:00 Cromolyn Sodium (Nasalcrom) 1 spray QID NASAL Last administered on 11/28/16 11 :36; Admin Dose 1 SPRAY; Start 09/29/16 at 11:02 Phenol (Cepastat Lozenge) 1 lozenge Q2H PRN MT SORE THROAT Last administered on 11/02/16 01:02; Admin Dose 1 LOZENGE; Start 10/01/16 at 19:00 IV Flush (NS 10 ml) 10 ml PRN PRN IV IV PROTOCOL Last administered on 11/17/16 03:20; Admin Dose 10 ML; Start 10/02/16 at 19:00 Hydromorphone HCl (Dilaudid) 0.5 mg Q4H PRN IV PAIN Last administered on 19:41; Admin Dose 0.5 MG; Start 10/06/16 at 18:30 Potassium Chloride 20 meq 20 meq DAILY GTB Last administered on 11/28/16 11:34 ; Admin Dose 20 MEQ; Start 10/30/16 at 12:00 Meropenem (Merrem 500 Mg/ 100 ml (Pmx)) 100 ml @ 200 mls/hr Q8 IVPB Last administered on 11/28/16 05:35; Admin Dose 200 MLS/HR; Start 11/14/16 at 14:00 Acetaminophen (Tylenol Liquid) 650 mg Q6H PRN PEG PAIN AND OR ELEVATED TEMP Last administered on 11/20/16 10:46; Admin Dose 650 MG; Start 11/16/16 at 20:04 Alprazolam (Xanax) 0.5 mg Q12H PRN PEG ANXIETY Last administered on 11/20/16 05 :30; Admin Dose 0.5 MG; Start 11/16/16 at 20:30 Ascorbic Acid (Vitamin C) 500 mg BID PEG Last administered on 11/28/16 11:35; Admin Dose 500 MG; Start 11/16/16 at 21:00 Atorvastatin Calcium (Lipitor) 20 mg QHS PEG Last administered on 11/27/16 21: 31; Admin Dose 20 MG; Start 11/16/16 at 21:00 Diazepam (Valium) 10 mg DAILY PEG Last administered on 11/28/16 11:36; Admin Dose 10 MG; Start 11/17/16 at 09:00 Duloxetine HCl (Cymbalta) 20 mg DAILY PEG Last administered on 11/28/16 11:34 ; Admin Dose 20 MG; Start 11/17/16 at 09:00 Fluconazole (Diflucan) 100 mg DAILY PEG Last administered on 11/28/16 11:35; Admin Dose 100 MG; Start 11/17/16 at 09:00 Lactobacillus Acidophilus (Florajen3 Capsule) 1 each TID PEG Last administered on 11/28/16 11:35; Admin Dose 1 EACH; Start 11/16/16 at 21:00 Metronidazole (Flagyl) 500 mg Q8 PEG Last administered on 11/28/16 05:35; Admin Dose 500 MG; Start 11/16/16 at 22:00 Promethazine HCl/ Codeine (Phenergan/ Codeine) 10 ml BID PRN PEG COUGH Last administered on 11/19/16 15:13; Admin Dose 10 ML; Start 11/16/16 at 20:00 Zolpidem Tartrate (Ambien) 5 mg QHS PRN PEG INSOMNIA; Start 11/16/16 at 20:00 Docusate Sodium (Colace Liquid Cup) 100 mg Q12 PRN GTB CONSTIPATION; Start 11/16 at 20:00 Oxycodone HCl 10 mg 10 mg Q4H PO Last administered on 11/28/16 11:35; Admin Dose 10 MG; Start 11/20/16 at 17:30 Sodium Chloride 1,000 ml @ 50 mls/hr Q20H IV Last administered on 11/28/16 02 :46; Admin Dose 50 MLS/HR; Start 11/23/16 at 04:00 Norepinephrine/ Dextrose (Levophed/D5W) 500 ml @ 1.87 mls/hr TITRATE IV Last administered on 11/26/16 14:21; Admin Dose 9.37 MLS/HR; Start 11/23/16 at 09:00 Midodrine 2.5 mg 2.5 mg TID@08,12,17 NGT Last administered on 11/28/16 11:35; Admin Dose 2.5 MG; Start 11/24/16 at 18:33 Vancomycin HCl (Vancocin) 100 ml @ 100 mls/hr Q12H IVPB Last administered on 05:35; Admin Dose 100 MLS/HR; Start 11/25/16 at 18:00 RUBIN MAYEN NP Nov 28, 2016 11:49
--- NOTE | 2016-11-28 15:17 | CONS ---
Date/Time of Note Date/Time of Note DATE: 11/28/16 TIME: 15:16 Assessment/Plan Assessment/Plan Additional Assessment/Plan Septic shock Respiratory failure Cardiopulmonary Arrest Hypotension Diastolic congestive heart failure Pulmonary hypertension Preserved ejection fraction Tricuspid valve regurgitation Lung cancer SVT -Patient remains on IV pressor, titrate to maintain SBP greater than 90 and/or map above 60. Vent management as per our pulmonary colleagues. Consultation Date/Type/Reason Admit Date/Time Sep 26, 2016 at 20:07 Type of Consultation: cv Referring Provider: DRE LOBATO MD 24 HR Interval Summary Free Text/Dictation Patient status post tracheostomy. No new cardiac issues as per nursing staff Exam/Review of Systems Vital Signs Vitals Vital Signs Date Time Temp Pulse Resp B/P Pulse Ox O2 Delivery O2 Flow Rate FiO2 11/28/16 13:45 128 18 94/60 98 11/28/16 13:00 Mechanical Ventilator 11/28/16 12:00 99.1 11/28/16 11:15 30 Intake and Output 11/27/16 11/27/16 11/28/16 15:00 23:00 07:00 Intake Total 1200.0 ml 1192.5 ml 882.48 ml Output Total 820 ml 950 ml 750 ml Balance 380.0 ml 242.5 ml 132.48 ml Exam Sleeping but arousable, no apparent distress Head: normocephalic Neck: other (Tracheostomy) Respiratory: other (Coarse breath sounds bilaterally, no wheezing) Cardiovascular: other (S1-S2 heard), regular rate and rhythm Gastrointestinal: bowel sounds, non-tender, soft Extremities: edema (Trace) Results Result Diagram: 11/28/16 0430 11/27/16 0440 Results 24 hrs Laboratory Tests Test 11/28/16 04:30 White Blood Count 20.7 H Red Blood Count 2.65 L Hemoglobin 7.1 L Hematocrit 23.2 L Mean Corpuscular Volume 87.5 Mean Corpuscular Hemoglobin 26.8 L Mean Corpuscular Hemoglobin Concent 30.6 L Red Cell Distribution Width 17.7 H Platelet Count 465 H Mean Platelet Volume 9.8 Neutrophils % 76.4 Lymphocytes % 11.9 L Monocytes % 8.2 Eosinophils % 2.0 Basophils % 0.5 Nucleated Red Blood Cells % 0.0 Neutrophils # 15.8 H Lymphocytes # 2.5 Monocytes # 1.7 H Eosinophils # 0.4 Basophils # 0.1 Nucleated Red Blood Cells # 0.0 Prothrombin Time 16.7 H Prothrombin Time Ratio 1.3 INR International Normalized Ratio 1.34 Activated Partial Thromboplast Time 46.8 H Thrombin Time 20.7 H Medications Medications Current Medications Ondansetron HCl (Zofran Inj) 4 mg Q6 PRN IV NAUSEA AND/OR VOMITING; Start 09/26 at 22:30 Collagenase (Santyl) 1 applic DAILY TOP Last administered on 11/23/16 08:20; Admin Dose 1 APPLIC; Start 09/27/16 at 09:00 Collagenase (Santyl) 1 applic PRN PRN TOP SOILED OR DISLODGED DRESSING; Start 09/27/16 at 05:00 Lansoprazole (Prevacid) 30 mg DAILY@06 GTB Last administered on 11/28/16 05:34 ; Admin Dose 30 MG; Start 09/28/16 at 06:00 Cromolyn Sodium (Nasalcrom) 1 spray QID NASAL Last administered on 11/28/16 11 :36; Admin Dose 1 SPRAY; Start 09/29/16 at 11:02 Phenol (Cepastat Lozenge) 1 lozenge Q2H PRN MT SORE THROAT Last administered on 11/02/16 01:02; Admin Dose 1 LOZENGE; Start 10/01/16 at 19:00 IV Flush (NS 10 ml) 10 ml PRN PRN IV IV PROTOCOL Last administered on 11/17/16 03:20; Admin Dose 10 ML; Start 10/02/16 at 19:00 Hydromorphone HCl (Dilaudid) 0.5 mg Q4H PRN IV PAIN Last administered on 19:41; Admin Dose 0.5 MG; Start 10/06/16 at 18:30 Potassium Chloride 20 meq 20 meq DAILY GTB Last administered on 11/28/16 11:34 ; Admin Dose 20 MEQ; Start 10/30/16 at 12:00 Meropenem (Merrem 500 Mg/ 100 ml (Pmx)) 100 ml @ 200 mls/hr Q8 IVPB Last administered on 11/28/16 05:35; Admin Dose 200 MLS/HR; Start 11/14/16 at 14:00 Acetaminophen (Tylenol Liquid) 650 mg Q6H PRN PEG PAIN AND OR ELEVATED TEMP Last administered on 11/20/16 10:46; Admin Dose 650 MG; Start 11/16/16 at 20:04 Alprazolam (Xanax) 0.5 mg Q12H PRN PEG ANXIETY Last administered on 11/20/16 05 :30; Admin Dose 0.5 MG; Start 11/16/16 at 20:30 Ascorbic Acid (Vitamin C) 500 mg BID PEG Last administered on 11/28/16 11:35; Admin Dose 500 MG; Start 11/16/16 at 21:00 Atorvastatin Calcium (Lipitor) 20 mg QHS PEG Last administered on 11/27/16 21: 31; Admin Dose 20 MG; Start 11/16/16 at 21:00 Diazepam (Valium) 10 mg DAILY PEG Last administered on 11/28/16 11:36; Admin Dose 10 MG; Start 11/17/16 at 09:00 Duloxetine HCl (Cymbalta) 20 mg DAILY PEG Last administered on 11/28/16 11:34 ; Admin Dose 20 MG; Start 11/17/16 at 09:00 Fluconazole (Diflucan) 100 mg DAILY PEG Last administered on 11/28/16 11:35; Admin Dose 100 MG; Start 11/17/16 at 09:00 Lactobacillus Acidophilus (Florajen3 Capsule) 1 each TID PEG Last administered on 11/28/16 11:35; Admin Dose 1 EACH; Start 11/16/16 at 21:00 Metronidazole (Flagyl) 500 mg Q8 PEG Last administered on 11/28/16 05:35; Admin Dose 500 MG; Start 11/16/16 at 22:00 Promethazine HCl/ Codeine (Phenergan/ Codeine) 10 ml BID PRN PEG COUGH Last administered on 11/19/16 15:13; Admin Dose 10 ML; Start 11/16/16 at 20:00 Zolpidem Tartrate (Ambien) 5 mg QHS PRN PEG INSOMNIA; Start 11/16/16 at 20:00 Docusate Sodium (Colace Liquid Cup) 100 mg Q12 PRN GTB CONSTIPATION; Start 11/16 at 20:00 Oxycodone HCl 10 mg 10 mg Q4H PO Last administered on 11/28/16 11:35; Admin Dose 10 MG; Start 11/20/16 at 17:30 Sodium Chloride 1,000 ml @ 50 mls/hr Q20H IV Last administered on 11/28/16 02 :46; Admin Dose 50 MLS/HR; Start 11/23/16 at 04:00 Norepinephrine/ Dextrose (Levophed/D5W) 500 ml @ 1.87 mls/hr TITRATE IV Last administered on 11/26/16 14:21; Admin Dose 9.37 MLS/HR; Start 11/23/16 at 09:00 Midodrine 2.5 mg 2.5 mg TID@08,12,17 NGT Last administered on 11/28/16 11:35; Admin Dose 2.5 MG; Start 11/24/16 at 18:33 Vancomycin HCl (Vancocin) 100 ml @ 100 mls/hr Q12H IVPB Last administered on 05:35; Admin Dose 100 MLS/HR; Start 11/25/16 at 18:00 Artemio Tipton DO Nov 28, 2016 15:17
--- NOTE | 2016-11-28 18:08 | PN ---
Date/Time of Note Date/Time of Note DATE: 11/28/16 TIME: 18:05 Assessment/Plan VTE Prophylaxis VTE Prophylaxis Intervention: SCD's Lines/Catheters IV C[facility]ter Type (from [facility]): PICC Line Central line still needed: Yes Urinary Cath still in place: Yes Reason Cath still needed: urinary retention Assessment/Plan Chief Complaint/Hosp Course Patient is status post tracheostomy today in the morning, awake alert, continues on ventilatory support, pending blood transfusion. ASSESSMENT AND PLAN: - Status post tracheostomy by Dr. White, ENT 11/28. - Status post cardiopulmonary arrest. Continue ICU care and ventilatory support. Dr. Tipton is following in cardiology consultation. - Septic shock, resolving. Dr. Coleman is following in infectious disease consultation. Continue antibiotics per ID. - Acute respiratory failure. Continue breathing treatment, oxygen supply supplementation and bronchodilators. Dr. Lopez is following in pulmonology consultation. - Left lung squamous carcinoma. The patient is not a candidate for chemotherapy. Dr. Calvo is following in oncology consultation. - Chronic obstructive pulmonary disease. Patient with long history of tobacco use. - Anemia of chronic disease. Continue to monitor hemoglobin and hematocrit. - Dysphagia with G-tube. Continue G-tube feeding, monitor residual. Continue aspiration precautions. - Hypothyroidism. Continue Synthroid. - Chronic pain. - Failure to thrive. Continue sequential compression device for deep venous thrombosis prophylaxis and Prevacid for peptic ulcer disease prophylaxis. Further recommendations based on clinical course. Plan of care discussed with Dr. Dozier. Problems: Exam/Review of Systems Vital Signs Vitals Vital Signs Date Time Temp Pulse Resp B/P Pulse Ox O2 Delivery O2 Flow Rate FiO2 11/28/16 17:25 135 21 100 40 11/28/16 17:00 97/74 Mechanical Ventilator 11/28/16 16:00 99.0 Intake and Output 11/27/16 11/27/16 11/28/16 15:00 23:00 07:00 Intake Total 1200.0 ml 1192.5 ml 882.48 ml Output Total 820 ml 950 ml 750 ml Balance 380.0 ml 242.5 ml 132.48 ml Exam Constitutional: frail Head: normocephalic ENMT: other (tracheostomy) Respiratory: diminished breath sounds Cardiovascular: nl pulses Gastrointestinal: non-tender, other (G-tube), soft Extremities: normal pulses Skin: other (Multiple wounds) Results Result Diagram: 11/28/16 0430 11/27/16 0440 Results 24 hrs Laboratory Tests Test 11/28/16 04:30 White Blood Count 20.7 H Red Blood Count 2.65 L Hemoglobin 7.1 L Hematocrit 23.2 L Mean Corpuscular Volume 87.5 Mean Corpuscular Hemoglobin 26.8 L Mean Corpuscular Hemoglobin Concent 30.6 L Red Cell Distribution Width 17.7 H Platelet Count 465 H Mean Platelet Volume 9.8 Neutrophils % 76.4 Lymphocytes % 11.9 L Monocytes % 8.2 Eosinophils % 2.0 Basophils % 0.5 Nucleated Red Blood Cells % 0.0 Neutrophils # 15.8 H Lymphocytes # 2.5 Monocytes # 1.7 H Eosinophils # 0.4 Basophils # 0.1 Nucleated Red Blood Cells # 0.0 Prothrombin Time 16.7 H Prothrombin Time Ratio 1.3 INR International Normalized Ratio 1.34 Activated Partial Thromboplast Time 46.8 H Thrombin Time 20.7 H Medications Medications Current Medications Ondansetron HCl (Zofran Inj) 4 mg Q6 PRN IV NAUSEA AND/OR VOMITING; Start 09/26 at 22:30 Collagenase (Santyl) 1 applic DAILY TOP Last administered on 11/23/16 08:20; Admin Dose 1 APPLIC; Start 09/27/16 at 09:00 Collagenase (Santyl) 1 applic PRN PRN TOP SOILED OR DISLODGED DRESSING; Start 09/27/16 at 05:00 Lansoprazole (Prevacid) 30 mg DAILY@06 GTB Last administered on 11/28/16 05:34 ; Admin Dose 30 MG; Start 09/28/16 at 06:00 Cromolyn Sodium (Nasalcrom) 1 spray QID NASAL Last administered on 11/28/16 11 :36; Admin Dose 1 SPRAY; Start 09/29/16 at 11:02 Phenol (Cepastat Lozenge) 1 lozenge Q2H PRN MT SORE THROAT Last administered on 11/02/16 01:02; Admin Dose 1 LOZENGE; Start 10/01/16 at 19:00 IV Flush (NS 10 ml) 10 ml PRN PRN IV IV PROTOCOL Last administered on 11/17/16 03:20; Admin Dose 10 ML; Start 10/02/16 at 19:00 Hydromorphone HCl (Dilaudid) 0.5 mg Q4H PRN IV PAIN Last administered on 19:41; Admin Dose 0.5 MG; Start 10/06/16 at 18:30 Potassium Chloride 20 meq 20 meq DAILY GTB Last administered on 11/28/16 11:34 ; Admin Dose 20 MEQ; Start 10/30/16 at 12:00 Meropenem (Merrem 500 Mg/ 100 ml (Pmx)) 100 ml @ 200 mls/hr Q8 IVPB Last administered on 11/28/16 15:41; Admin Dose 200 MLS/HR; Start 11/14/16 at 14:00 Acetaminophen (Tylenol Liquid) 650 mg Q6H PRN PEG PAIN AND OR ELEVATED TEMP Last administered on 11/20/16 10:46; Admin Dose 650 MG; Start 11/16/16 at 20:04 Alprazolam (Xanax) 0.5 mg Q12H PRN PEG ANXIETY Last administered on 11/20/16 05 :30; Admin Dose 0.5 MG; Start 11/16/16 at 20:30 Ascorbic Acid (Vitamin C) 500 mg BID PEG Last administered on 11/28/16 11:35; Admin Dose 500 MG; Start 11/16/16 at 21:00 Atorvastatin Calcium (Lipitor) 20 mg QHS PEG Last administered on 11/27/16 21: 31; Admin Dose 20 MG; Start 11/16/16 at 21:00 Diazepam (Valium) 10 mg DAILY PEG Last administered on 11/28/16 11:36; Admin Dose 10 MG; Start 11/17/16 at 09:00 Duloxetine HCl (Cymbalta) 20 mg DAILY PEG Last administered on 11/28/16 11:34 ; Admin Dose 20 MG; Start 11/17/16 at 09:00 Fluconazole (Diflucan) 100 mg DAILY PEG Last administered on 11/28/16 11:35; Admin Dose 100 MG; Start 11/17/16 at 09:00 Lactobacillus Acidophilus (Florajen3 Capsule) 1 each TID PEG Last administered on 11/28/16 11:35; Admin Dose 1 EACH; Start 11/16/16 at 21:00 Metronidazole (Flagyl) 500 mg Q8 PEG Last administered on 11/28/16 15:41; Admin Dose 500 MG; Start 11/16/16 at 22:00 Promethazine HCl/ Codeine (Phenergan/ Codeine) 10 ml BID PRN PEG COUGH Last administered on 11/19/16 15:13; Admin Dose 10 ML; Start 11/16/16 at 20:00 Zolpidem Tartrate (Ambien) 5 mg QHS PRN PEG INSOMNIA; Start 11/16/16 at 20:00 Docusate Sodium (Colace Liquid Cup) 100 mg Q12 PRN GTB CONSTIPATION; Start 11/16 at 20:00 Oxycodone HCl 10 mg 10 mg Q4H PO Last administered on 11/28/16 11:35; Admin Dose 10 MG; Start 11/20/16 at 17:30 Sodium Chloride 1,000 ml @ 50 mls/hr Q20H IV Last administered on 11/28/16 02 :46; Admin Dose 50 MLS/HR; Start 11/23/16 at 04:00 Norepinephrine/ Dextrose (Levophed/D5W) 500 ml @ 1.87 mls/hr TITRATE IV Last administered on 11/26/16 14:21; Admin Dose 9.37 MLS/HR; Start 11/23/16 at 09:00 Midodrine 2.5 mg 2.5 mg TID@08,12,17 NGT Last administered on 11/28/16 11:35; Admin Dose 2.5 MG; Start 11/24/16 at 18:33 Vancomycin HCl (Vancocin) 100 ml @ 100 mls/hr Q12H IVPB Last administered on 05:35; Admin Dose 100 MLS/HR; Start 11/25/16 at 18:00 REBECCA ISLAS Nov 28, 2016 18:08
--- NOTE | 2016-11-28 20:37 | CONS ---
Date/Time of Note Date/Time of Note DATE: 11/28/16 TIME: 20:36 Assessment/Plan Assessment/Plan Chief Complaint/Hosp Course Left lung squamous carcinoma. The patient is not a candidate for chemotherapy. Anemia of chronic disease. post 8 u prbc monitor blood count closely transfuse as needed to keep HB above 8 Acute respiratory insufficiency requiring BiPAP. trach -per daughter's wishes Acute shock, septic versus hypovolemic. tachycardia with episode of SVT. Chronic obstructive pulmonary disease. Dysphagia with G-tube. Continue current G-tube feeding. Hypothyroidism. Continue Synthroid. Problems: Consultation Date/Type/Reason Admit Date/Time Sep 26, 2016 at 20:07 Initial Consult Date 10/19/16 Type of Consultation: hemeon Referring Provider: DRE LOBATO MD 24 HR Interval Summary Free Text/Dictation all noted count reviewed Exam/Review of Systems Vital Signs Vitals Vital Signs Date Time Temp Pulse Resp B/P Pulse Ox O2 Delivery O2 Flow Rate FiO2 11/28/16 18:15 134 21 93/69 97 11/28/16 18:00 Mechanical Ventilator 11/28/16 17:25 40 11/28/16 16:00 99.0 Intake and Output 11/27/16 11/27/16 11/28/16 15:00 23:00 07:00 Intake Total 1200.0 ml 1192.5 ml 882.48 ml Output Total 820 ml 950 ml 750 ml Balance 380.0 ml 242.5 ml 132.48 ml Exam Constitutional: frail Head: normocephalic ENMT: other (tracheostomy) Respiratory: diminished breath sounds Cardiovascular: nl pulses Gastrointestinal: non-tender, other (G-tube), soft Extremities: normal pulses Skin: other (Multiple wounds) Results Result Diagram: 11/28/16 0430 11/27/16 0440 Results 24 hrs Laboratory Tests Test 11/28/16 04:30 White Blood Count 20.7 H Red Blood Count 2.65 L Hemoglobin 7.1 L Hematocrit 23.2 L Mean Corpuscular Volume 87.5 Mean Corpuscular Hemoglobin 26.8 L Mean Corpuscular Hemoglobin Concent 30.6 L Red Cell Distribution Width 17.7 H Platelet Count 465 H Mean Platelet Volume 9.8 Neutrophils % 76.4 Lymphocytes % 11.9 L Monocytes % 8.2 Eosinophils % 2.0 Basophils % 0.5 Nucleated Red Blood Cells % 0.0 Neutrophils # 15.8 H Lymphocytes # 2.5 Monocytes # 1.7 H Eosinophils # 0.4 Basophils # 0.1 Nucleated Red Blood Cells # 0.0 Prothrombin Time 16.7 H Prothrombin Time Ratio 1.3 INR International Normalized Ratio 1.34 Activated Partial Thromboplast Time 46.8 H Thrombin Time 20.7 H Medications Medications Current Medications Ondansetron HCl (Zofran Inj) 4 mg Q6 PRN IV NAUSEA AND/OR VOMITING; Start 09/26 at 22:30 Collagenase (Santyl) 1 applic DAILY TOP Last administered on 11/23/16 08:20; Admin Dose 1 APPLIC; Start 09/27/16 at 09:00 Collagenase (Santyl) 1 applic PRN PRN TOP SOILED OR DISLODGED DRESSING; Start 09/27/16 at 05:00 Lansoprazole (Prevacid) 30 mg DAILY@06 GTB Last administered on 11/28/16 05:34 ; Admin Dose 30 MG; Start 09/28/16 at 06:00 Cromolyn Sodium (Nasalcrom) 1 spray QID NASAL Last administered on 11/28/16 17 :00; Admin Dose 1 SPRAY; Start 09/29/16 at 11:02 Phenol (Cepastat Lozenge) 1 lozenge Q2H PRN MT SORE THROAT Last administered on 11/02/16 01:02; Admin Dose 1 LOZENGE; Start 10/01/16 at 19:00 IV Flush (NS 10 ml) 10 ml PRN PRN IV IV PROTOCOL Last administered on 11/17/16 03:20; Admin Dose 10 ML; Start 10/02/16 at 19:00 Hydromorphone HCl (Dilaudid) 0.5 mg Q4H PRN IV PAIN Last administered on 19:41; Admin Dose 0.5 MG; Start 10/06/16 at 18:30 Potassium Chloride 20 meq 20 meq DAILY GTB Last administered on 11/28/16 11:34 ; Admin Dose 20 MEQ; Start 10/30/16 at 12:00 Meropenem (Merrem 500 Mg/ 100 ml (Pmx)) 100 ml @ 200 mls/hr Q8 IVPB Last administered on 11/28/16 15:41; Admin Dose 200 MLS/HR; Start 11/14/16 at 14:00 Acetaminophen (Tylenol Liquid) 650 mg Q6H PRN PEG PAIN AND OR ELEVATED TEMP Last administered on 11/20/16 10:46; Admin Dose 650 MG; Start 11/16/16 at 20:04 Alprazolam (Xanax) 0.5 mg Q12H PRN PEG ANXIETY Last administered on 11/20/16 05 :30; Admin Dose 0.5 MG; Start 11/16/16 at 20:30 Ascorbic Acid (Vitamin C) 500 mg BID PEG Last administered on 11/28/16 11:35; Admin Dose 500 MG; Start 11/16/16 at 21:00 Atorvastatin Calcium (Lipitor) 20 mg QHS PEG Last administered on 11/27/16 21: 31; Admin Dose 20 MG; Start 11/16/16 at 21:00 Diazepam (Valium) 10 mg DAILY PEG Last administered on 11/28/16 11:36; Admin Dose 10 MG; Start 11/17/16 at 09:00 Duloxetine HCl (Cymbalta) 20 mg DAILY PEG Last administered on 11/28/16 11:34 ; Admin Dose 20 MG; Start 11/17/16 at 09:00 Fluconazole (Diflucan) 100 mg DAILY PEG Last administered on 11/28/16 11:35; Admin Dose 100 MG; Start 11/17/16 at 09:00 Lactobacillus Acidophilus (Florajen3 Capsule) 1 each TID PEG Last administered on 11/28/16 11:35; Admin Dose 1 EACH; Start 11/16/16 at 21:00 Metronidazole (Flagyl) 500 mg Q8 PEG Last administered on 11/28/16 15:41; Admin Dose 500 MG; Start 11/16/16 at 22:00 Promethazine HCl/ Codeine (Phenergan/ Codeine) 10 ml BID PRN PEG COUGH Last administered on 11/19/16 15:13; Admin Dose 10 ML; Start 11/16/16 at 20:00 Zolpidem Tartrate (Ambien) 5 mg QHS PRN PEG INSOMNIA; Start 11/16/16 at 20:00 Docusate Sodium (Colace Liquid Cup) 100 mg Q12 PRN GTB CONSTIPATION; Start 11/16 at 20:00 Oxycodone HCl 10 mg 10 mg Q4H PO Last administered on 11/28/16 18:05; Admin Dose 10 MG; Start 11/20/16 at 17:30 Sodium Chloride 1,000 ml @ 50 mls/hr Q20H IV Last administered on 11/28/16 02 :46; Admin Dose 50 MLS/HR; Start 11/23/16 at 04:00 Norepinephrine/ Dextrose (Levophed/D5W) 500 ml @ 1.87 mls/hr TITRATE IV Last administered on 11/26/16 14:21; Admin Dose 9.37 MLS/HR; Start 11/23/16 at 09:00 Midodrine 2.5 mg 2.5 mg TID@08,12,17 NGT Last administered on 11/28/16 18:06; Admin Dose 2.5 MG; Start 11/24/16 at 18:33 Vancomycin HCl (Vancocin) 100 ml @ 100 mls/hr Q12H IVPB Last administered on 18:06; Admin Dose 100 MLS/HR; Start 11/25/16 at 18:00 DYLLAN CARRION MD Nov 28, 2016 20:37
--- NOTE | 2016-11-28 20:39 | CONS ---
Date/Time of Note Date/Time of Note DATE: 11/28/16 TIME: 20:36 Assessment/Plan Assessment/Plan Additional Assessment/Plan 1. acute on chronic resp failure intubated on ventilator- not able to wean off s/p Tracheostomy today AM 2. PEA s/p resuscitation 3. Hyponatremia multifactorial 4. Pneumonia. 3. Lung cancer. 4. History of Clostridium difficile colitis and recurrent urinary tract infection. 5. Unstageable sacral wound, status post debridement with wound VAC application. PLAN: conitnue IV abx, ID following, S/p Tracheostomy making good urine Na 134, other electrolytes stable afebrile, BP stable will follow up Consultation Date/Type/Reason Admit Date/Time Sep 26, 2016 at 20:07 Type of Consultation: NEPHROLOGY Referring Provider: DRE LOBATO MD Exam/Review of Systems Vital Signs Vitals Vital Signs Date Time Temp Pulse Resp B/P Pulse Ox O2 Delivery O2 Flow Rate FiO2 11/28/16 18:15 134 21 93/69 97 11/28/16 18:00 Mechanical Ventilator 11/28/16 17:25 40 11/28/16 16:00 99.0 Intake and Output 11/27/16 11/27/16 11/28/16 15:00 23:00 07:00 Intake Total 1200.0 ml 1192.5 ml 882.48 ml Output Total 820 ml 950 ml 750 ml Balance 380.0 ml 242.5 ml 132.48 ml Exam GENERAL: Chronically ill-appearing, cachectic, elderly woman who is intubated, in no distress. HEENT: Head atraumatic, normocephalic. Sclerae anicteric. Buccal mucosa dry. NECK: Supple. CHEST: Rise symmetrical. Breath sounds diminished. HEART: S1, S2. ABDOMEN: Soft. Bowel tones hypoactive. EXTREMITIES: No cyanosis. Results Result Diagram: 11/28/16 0430 11/27/16 0440 Results 24 hrs Laboratory Tests Test 11/28/16 04:30 White Blood Count 20.7 H Red Blood Count 2.65 L Hemoglobin 7.1 L Hematocrit 23.2 L Mean Corpuscular Volume 87.5 Mean Corpuscular Hemoglobin 26.8 L Mean Corpuscular Hemoglobin Concent 30.6 L Red Cell Distribution Width 17.7 H Platelet Count 465 H Mean Platelet Volume 9.8 Neutrophils % 76.4 Lymphocytes % 11.9 L Monocytes % 8.2 Eosinophils % 2.0 Basophils % 0.5 Nucleated Red Blood Cells % 0.0 Neutrophils # 15.8 H Lymphocytes # 2.5 Monocytes # 1.7 H Eosinophils # 0.4 Basophils # 0.1 Nucleated Red Blood Cells # 0.0 Prothrombin Time 16.7 H Prothrombin Time Ratio 1.3 INR International Normalized Ratio 1.34 Activated Partial Thromboplast Time 46.8 H Thrombin Time 20.7 H Medications Medications Current Medications Ondansetron HCl (Zofran Inj) 4 mg Q6 PRN IV NAUSEA AND/OR VOMITING; Start 09/26 at 22:30 Collagenase (Santyl) 1 applic DAILY TOP Last administered on 11/23/16 08:20; Admin Dose 1 APPLIC; Start 09/27/16 at 09:00 Collagenase (Santyl) 1 applic PRN PRN TOP SOILED OR DISLODGED DRESSING; Start 09/27/16 at 05:00 Lansoprazole (Prevacid) 30 mg DAILY@06 GTB Last administered on 11/28/16 05:34 ; Admin Dose 30 MG; Start 09/28/16 at 06:00 Cromolyn Sodium (Nasalcrom) 1 spray QID NASAL Last administered on 11/28/16 17 :00; Admin Dose 1 SPRAY; Start 09/29/16 at 11:02 Phenol (Cepastat Lozenge) 1 lozenge Q2H PRN MT SORE THROAT Last administered on 11/02/16 01:02; Admin Dose 1 LOZENGE; Start 10/01/16 at 19:00 IV Flush (NS 10 ml) 10 ml PRN PRN IV IV PROTOCOL Last administered on 11/17/16 03:20; Admin Dose 10 ML; Start 10/02/16 at 19:00 Hydromorphone HCl (Dilaudid) 0.5 mg Q4H PRN IV PAIN Last administered on 19:41; Admin Dose 0.5 MG; Start 10/06/16 at 18:30 Potassium Chloride 20 meq 20 meq DAILY GTB Last administered on 11/28/16 11:34 ; Admin Dose 20 MEQ; Start 10/30/16 at 12:00 Meropenem (Merrem 500 Mg/ 100 ml (Pmx)) 100 ml @ 200 mls/hr Q8 IVPB Last administered on 11/28/16 15:41; Admin Dose 200 MLS/HR; Start 11/14/16 at 14:00 Acetaminophen (Tylenol Liquid) 650 mg Q6H PRN PEG PAIN AND OR ELEVATED TEMP Last administered on 11/20/16 10:46; Admin Dose 650 MG; Start 11/16/16 at 20:04 Alprazolam (Xanax) 0.5 mg Q12H PRN PEG ANXIETY Last administered on 11/20/16 05 :30; Admin Dose 0.5 MG; Start 11/16/16 at 20:30 Ascorbic Acid (Vitamin C) 500 mg BID PEG Last administered on 11/28/16 11:35; Admin Dose 500 MG; Start 11/16/16 at 21:00 Atorvastatin Calcium (Lipitor) 20 mg QHS PEG Last administered on 11/27/16 21: 31; Admin Dose 20 MG; Start 11/16/16 at 21:00 Diazepam (Valium) 10 mg DAILY PEG Last administered on 11/28/16 11:36; Admin Dose 10 MG; Start 11/17/16 at 09:00 Duloxetine HCl (Cymbalta) 20 mg DAILY PEG Last administered on 11/28/16 11:34 ; Admin Dose 20 MG; Start 11/17/16 at 09:00 Fluconazole (Diflucan) 100 mg DAILY PEG Last administered on 11/28/16 11:35; Admin Dose 100 MG; Start 11/17/16 at 09:00 Lactobacillus Acidophilus (Florajen3 Capsule) 1 each TID PEG Last administered on 11/28/16 11:35; Admin Dose 1 EACH; Start 11/16/16 at 21:00 Metronidazole (Flagyl) 500 mg Q8 PEG Last administered on 11/28/16 15:41; Admin Dose 500 MG; Start 11/16/16 at 22:00 Promethazine HCl/ Codeine (Phenergan/ Codeine) 10 ml BID PRN PEG COUGH Last administered on 11/19/16 15:13; Admin Dose 10 ML; Start 11/16/16 at 20:00 Zolpidem Tartrate (Ambien) 5 mg QHS PRN PEG INSOMNIA; Start 11/16/16 at 20:00 Docusate Sodium (Colace Liquid Cup) 100 mg Q12 PRN GTB CONSTIPATION; Start 11/16 at 20:00 Oxycodone HCl 10 mg 10 mg Q4H PO Last administered on 11/28/16 18:05; Admin Dose 10 MG; Start 11/20/16 at 17:30 Sodium Chloride 1,000 ml @ 50 mls/hr Q20H IV Last administered on 11/28/16 02 :46; Admin Dose 50 MLS/HR; Start 11/23/16 at 04:00 Norepinephrine/ Dextrose (Levophed/D5W) 500 ml @ 1.87 mls/hr TITRATE IV Last administered on 11/26/16 14:21; Admin Dose 9.37 MLS/HR; Start 11/23/16 at 09:00 Midodrine 2.5 mg 2.5 mg TID@08,12,17 NGT Last administered on 11/28/16 18:06; Admin Dose 2.5 MG; Start 11/24/16 at 18:33 Vancomycin HCl (Vancocin) 100 ml @ 100 mls/hr Q12H IVPB Last administered on 18:06; Admin Dose 100 MLS/HR; Start 11/25/16 at 18:00 DIONNE SAUCEDA MD Nov 28, 2016 20:39
[2016-11-28] MEDS: ATORVASTATIN 20 MG TAB PEG SCH (21:15)
[2016-11-29] VITALS (65 sets, daily range): BP systolic 84–124; BP diastolic 66–97; PULSE 87–128; RESP 16–23
[2016-11-29] MEDS: ALBUTEROL/IPRATROPIUM (NEB) 3 ML AMP NEB PRN (02:00)
[2016-11-29] MEDS: SOD CHLORIDE 0.9% 1,000 ML IV SCH ×2 (02:20→22:30)
[2016-11-29] MEDS: oxyCODONE 5 MG TAB PO SCH ×6 (02:28→21:06)
[2016-11-29] MEDS: ACETAMINOPHEN 650MG/20.3ML CUP PEG PRN (02:34)
[2016-11-29] MEDS: MEROPENEM 500 MG/100 ML (PMX) 100 ML IVPB SCH ×3 (05:32→21:05)
[2016-11-29] MEDS: VANCOMYCIN 500MG/NS (PMX) 100 ML IVPB SCH ×2 (05:32→18:13)
[2016-11-29] MEDS: metroNIDAZOLE 500 MG TAB PEG SCH ×3 (05:33→21:00)
[2016-11-29] MEDS: LANSOPRAZOLE 30 MG CAP GTB SCH (05:33)
[2016-11-29 06:25] LABS: ADD SCAN DIFF NO
[2016-11-29 06:32] LABS: ABNORMAL IP MESSAGE 1; BASOPHIL # 0.1 10^3/ul (0.0-0.1); BASOPHILS % 0.6 % (0.0-2.0); EOSINOPHILS # 0.3 10^3/ul (0.0-0.5); EOSINOPHILS % 1.6 % (0.0-7.0); HEMATOCRIT 31.4 % (37.0-47.0); HEMOGLOBIN 9.9 g/dl (12.0-16.0); LYMPHOCYTES # 2.2 10^3/ul (0.8-2.9); LYMPHOCYTES % 10.7 % (15.0-51.0); MEAN CORPUSCULAR HEMOGLOBIN 27.1 pg (29.0-33.0); MEAN CORPUSCULAR HGB CONC 31.5 g/dl (32.0-37.0); MEAN PLATELET VOLUME 9.7 fl (7.4-10.4); MONOCYTE # 2.1 10^3/ul (0.3-0.9); MONOCYTES % 10.1 % (0.0-11.0); NEUTROPHIL # 15.5 10^3/ul (1.6-7.5); NEUTROPHILS % 76.2 % (39.0-77.0); PLATELET COUNT 381 10^3/UL (140-415); RED BLOOD COUNT 3.65 10^6/ul (4.20-5.40); RED CELL DISTRIBUTION WIDTH 16.5 % (11.5-14.5); WHITE BLOOD COUNT 20.3 10^3/ul (4.8-10.8)
[2016-11-29 07:07] LABS: CREATININE 0.48 mg/dl (0.44-1.00); POTASSIUM 3.9 mmol/L (3.5-5.1)
[2016-11-29] MEDS: LEVOTHYROXINE 125 MCG TAB PEG SCH (08:22)
[2016-11-29] MEDS: FLUCONAZOLE 100 MG TAB PEG SCH (08:22)
[2016-11-29] MEDS: ASCORBIC ACID 500 MG TAB PEG SCH ×2 (08:22→21:05)
[2016-11-29] MEDS: DULOXETINE 20 MG CAP DR PEG SCH (08:22)
[2016-11-29] MEDS: CROMOLYN 4% 26ML NAS INH NASAL SCH ×4 (08:23→21:06)
[2016-11-29] MEDS: POTASSIUM CHLORIDE 20 MEQ POWDER FOR ORAL SOLN GTB SCH (08:23)
[2016-11-29] MEDS: L ACIDOPHIL/B LACTIS/B LONGUM CAPSULE PEG SCH ×3 (08:26→21:05)
[2016-11-29] MEDS: MIDODRINE 2.5 MG TAB NGT SCH ×2 (10:17→16:18)
[2016-11-29] MEDS: COLLAGENASE 30 GM TUBE TOP SCH (10:18)
[2016-11-29] MEDS: DIAZEPAM 5 MG TAB PEG SCH (10:22)
--- NOTE | 2016-11-29 11:54 | PN ---
DATE: 11/29/2016 SUBJECTIVE: Patient Gumaro was stable this morning. No new events, status post PEG and tracheosto my placement being weaned off vasopressors. PHYSICAL EXAMINATION: VITAL SIGNS: Temperature 98, pulse is 110, blood pressure 96/75, O2 saturation 99%, FIO2 of 30%. NECK: Trach site appears clean and intact. CARDIAC: S1, S2, no added sounds or murmurs. CHEST: Diminished air entry bilaterally. ABDOMEN: Soft, nontender. No guarding or rebound. EXTREMITIES: No cyanosis, clubbing, edema. NEUROLOGIC: Generalized weakness. LABORATORY DATA: White count 20, hemoglobin 9.9, platelets of 381. BUN 13, creatinine 0.48. ABG p ending. Chest x-ray is pending. IMPRESSION AND PLAN: 1. Acute on chronic hypoxemic respiratory failure now with tracheostomy. 2. History of advanced lung cancer. 3. Dysphagia now with G-tube. 4. Postobstructive pneumonia. 5. History of Clostridium difficile colitis. 6. Unstageable decubitus ulcer. PLAN: 1. Continue mechanical ventilation via tracheostomy. 2. Continue wound care. 3. Continue tube feeding. 4. Deep vein thrombosis and GI prophylaxis. 5. Transfer to telemetry if hemodynamically stable this afternoon. Dictated By: CASSIE MORALEZ/SANDER Conf#: [id number] DID#: [id number]
--- NOTE | 2016-11-29 12:09 | PN ---
DATE: 11/29/2016 SUBJECTIVE: Follow up on 66-year-old female status post cardiopulmonary arrest. Status post trache ostomy, lung cancer and acute respiratory failure. The patient is currently status post tracheostom y yesterday. There is no bleeding from tracheostomy site. The patient is comfortable on ventilator y support, awake. The patient was on Levophed for hypertension, which is currently held starting at 9 o'clock. Continue to monitor in ICU. The patient may be transferred to telemetry if remains hem odynamically stable for 24 hours without pressors. OBJECTIVE VITAL SIGNS: Temperature is 98.2, pulse is 88, blood pressure 98/77, respiratory rate 19, oxygen sa turation 100% on 30% FIO2. GENERAL: Cachectic female currently on ventilatory support, awake, alert. HEENT: Head is atraumatic. NECK: Supple. Tracheostomy at the base of the neck with no bleeding. LUNGS: Respiratory sounds diminished at the bases. CARDIOVASCULAR: Normal S1, S2. No murmur. GASTROINTESTINAL: Abdomen is flat, soft, nondistended. G-tube present with intact stoma. EXTREMITIES: Normal pulses. The patient has multiple wounds including sacral wound which has a wou nd VAC. NEUROLOGIC: The patient is awake, alert. LABORATORY DATA: Today CBC: White blood cells 20.3, hemoglobin 9.9, hematocrit 31.4, platelets 381 . Chemistry: Sodium is 136, potassium 3.9, chloride 99, carbon dioxide 32, anion gap 9, BUN is 13, creatinine 0.48, glucose 128, calcium is 8.0. ASSESSMENT AND PLAN: 1. Status post tracheostomy by Dr. White, ENT, on 11/28/2016. Continue to follow up current trach eostomy care. Follow up ENT recommendations. 2. Status post cardiopulmonary arrest. 3. Septic shock. Continue antibiotics per ID. 4. Acute respiratory failure. Continue ventilatory support. 5. Left lung squamous carcinoma. 6. Chronic obstructive pulmonary disease with history of long-time tobacco use. 7. Anemia of chronic disease. Dr. Calvo is following in hematology consultation. The patient is status post transfusion yesterday for hemoglobin of 7.1. Today, hemoglobin is 9.9. Continue to monitor. 8. Hypothyroidism. Continue Synthroid. 9. Failure to thrive and dysphagia with G-tube. 10. Will continue sequential compression device for deep venous thrombosis prophylaxis and Prevacid for peptic ulcer disease prophylaxis. Further recommendations based on clinical course. Plan of care discussed with Dr. Lobato. Dictated By: REBECCA ISLAS REFINERY [employer] for DRE LOBATO MD SR/NTS Conf#: [id number] DID#: [id number]
[2016-11-29 12:28] LABS: ADD SCAN DIFF NO
[2016-11-29 12:34] LABS: ABNORMAL IP MESSAGE 1; BASOPHIL # 0.1 10^3/ul (0.0-0.1); BASOPHILS % 0.5 % (0.0-2.0); EOSINOPHILS # 0.5 10^3/ul (0.0-0.5); EOSINOPHILS % 2.5 % (0.0-7.0); HEMATOCRIT 31.1 % (37.0-47.0); HEMOGLOBIN 9.7 g/dl (12.0-16.0); LYMPHOCYTES # 1.9 10^3/ul (0.8-2.9); LYMPHOCYTES % 9.8 % (15.0-51.0); MEAN CORPUSCULAR HGB CONC 31.2 g/dl (32.0-37.0); MEAN CORPUSCULAR VOLUME 86.6 fl (82.0-101.0); MEAN PLATELET VOLUME 9.1 fl (7.4-10.4); MONOCYTE # 1.8 10^3/ul (0.3-0.9); MONOCYTES % 9.1 % (0.0-11.0); NEUTROPHIL # 14.9 10^3/ul (1.6-7.5); NEUTROPHILS % 77.2 % (39.0-77.0); PLATELET COUNT 389 10^3/UL (140-415); RED BLOOD COUNT 3.59 10^6/ul (4.20-5.40); RED CELL DISTRIBUTION WIDTH 16.9 % (11.5-14.5); WHITE BLOOD COUNT 19.4 10^3/ul (4.8-10.8)
--- NOTE | 2016-11-29 12:59 | CONS ---
Date/Time of Note Date/Time of Note DATE: 11/29/16 TIME: 12:57 Assessment/Plan Assessment/Plan Chief Complaint/Hosp Course SUBJECTIVE: No events, looks comfortable, afebrile. Off Levophed gtt INDWELLINGS: Trach, PEG, George, PICC line. ANTIMICROBIALS: 1. Fluconazole. 2. Flagyl. 3. Vancomycin. 4. Meropenem. PHYSICAL EXAMINATION: GENERAL: Chronically ill-appearing, cachectic, elderly woman who is intubated, in no distress. HEENT: Head atraumatic, normocephalic. Sclerae anicteric. Buccal mucosa dry. NECK: Supple. CHEST: Rise symmetrical. Breath sounds diminished. HEART: S1, S2. ABDOMEN: Soft. Bowel tones hypoactive. EXTREMITIES: No cyanosis. ASSESSMENT: 1. Acute on chronic respiratory failure, status post cardiopulmonary arrest. 2. Pneumonia. 3. Lung cancer. 4. History of Clostridium difficile colitis and recurrent urinary tract infection. 5. Unstageable sacral wound, status post debridement with wound VAC application. PLAN: Clinically looks more comfortable, stable off Levophed gtt, will keep on broad spectrum antibiotics for now. KARRI RN Problems: Consultation Date/Type/Reason Admit Date/Time Sep 26, 2016 at 20:07 Type of Consultation: ID Referring Provider: DRE LOBATO MD Exam/Review of Systems Vital Signs Vitals Vital Signs Date Time Temp Pulse Resp B/P Pulse Ox O2 Delivery O2 Flow Rate FiO2 11/29/16 11:55 89 22 98 30 11/29/16 10:30 96/75 Mechanical Ventilator 11/29/16 07:30 98.2 Intake and Output 11/28/16 11/28/16 11/29/16 15:00 23:00 07:00 Intake Total 794.96 ml 1212.77 ml 1240.0 ml Output Total 1078 ml 700 ml 520 ml Balance -283.04 ml 512.77 ml 720.0 ml Results Result Diagram: 11/29/16 1203 11/29/16 0500 Results 24 hrs Laboratory Tests Test 11/29/16 05:00 11/29/16 05:10 11/29/16 12:03 White Blood Count 20.3 H 19.4 H Red Blood Count 3.65 #L 3.59 L Hemoglobin 9.9 #L 9.7 L Hematocrit 31.4 #L 31.1 L Mean Corpuscular Volume 86.0 86.6 Mean Corpuscular Hemoglobin 27.1 L 27.0 L Mean Corpuscular Hemoglobin Concent 31.5 L 31.2 L Red Cell Distribution Width 16.5 H 16.9 H Platelet Count 381 389 Mean Platelet Volume 9.7 9.1 Neutrophils % 76.2 77.2 H Lymphocytes % 10.7 L 9.8 L Monocytes % 10.1 9.1 Eosinophils % 1.6 2.5 Basophils % 0.6 0.5 Nucleated Red Blood Cells % 0.0 0.0 Neutrophils # 15.5 H 14.9 H Lymphocytes # 2.2 1.9 Monocytes # 2.1 H 1.8 H Eosinophils # 0.3 0.5 Basophils # 0.1 0.1 Nucleated Red Blood Cells # 0.0 0.0 Sodium Level 136 Potassium Level 3.9 Chloride Level 99 Carbon Dioxide Level 32 H Anion Gap 9 Blood Urea Nitrogen 13 Creatinine 0.48 Glucose Level 128 Calcium Level 8.0 L Lab Scanned Report BLOOD TRANSFUSION Medications Medications Current Medications Ondansetron HCl (Zofran Inj) 4 mg Q6 PRN IV NAUSEA AND/OR VOMITING; Start 09/26 at 22:30 Collagenase (Santyl) 1 applic DAILY TOP Last administered on 11/29/16 10:18; Admin Dose 1 APPLIC; Start 09/27/16 at 09:00 Collagenase (Santyl) 1 applic PRN PRN TOP SOILED OR DISLODGED DRESSING; Start 09/27/16 at 05:00 Lansoprazole (Prevacid) 30 mg DAILY@06 GTB Last administered on 11/29/16 05:33 ; Admin Dose 30 MG; Start 09/28/16 at 06:00 Cromolyn Sodium (Nasalcrom) 1 spray QID NASAL Last administered on 11/29/16 08 :23; Admin Dose 1 SPRAY; Start 09/29/16 at 11:02 Phenol (Cepastat Lozenge) 1 lozenge Q2H PRN MT SORE THROAT Last administered on 11/02/16 01:02; Admin Dose 1 LOZENGE; Start 10/01/16 at 19:00 IV Flush (NS 10 ml) 10 ml PRN PRN IV IV PROTOCOL Last administered on 11/17/16 03:20; Admin Dose 10 ML; Start 10/02/16 at 19:00 Hydromorphone HCl (Dilaudid) 0.5 mg Q4H PRN IV PAIN Last administered on 19:41; Admin Dose 0.5 MG; Start 10/06/16 at 18:30 Potassium Chloride 20 meq 20 meq DAILY GTB Last administered on 11/29/16 08:23 ; Admin Dose 20 MEQ; Start 10/30/16 at 12:00 Meropenem (Merrem 500 Mg/ 100 ml (Pmx)) 100 ml @ 200 mls/hr Q8 IVPB Last administered on 11/29/16 05:32; Admin Dose 200 MLS/HR; Start 11/14/16 at 14:00 Acetaminophen (Tylenol Liquid) 650 mg Q6H PRN PEG PAIN AND OR ELEVATED TEMP Last administered on 11/29/16 02:34; Admin Dose 650 MG; Start 11/16/16 at 20:04 Alprazolam (Xanax) 0.5 mg Q12H PRN PEG ANXIETY Last administered on 11/20/16 05 :30; Admin Dose 0.5 MG; Start 11/16/16 at 20:30 Ascorbic Acid (Vitamin C) 500 mg BID PEG Last administered on 11/29/16 08:22; Admin Dose 500 MG; Start 11/16/16 at 21:00 Atorvastatin Calcium (Lipitor) 20 mg QHS PEG Last administered on 11/28/16 21: 15; Admin Dose 20 MG; Start 11/16/16 at 21:00 Diazepam (Valium) 10 mg DAILY PEG Last administered on 11/29/16 10:22; Admin Dose 10 MG; Start 11/17/16 at 09:00 Duloxetine HCl (Cymbalta) 20 mg DAILY PEG Last administered on 11/29/16 08:22 ; Admin Dose 20 MG; Start 11/17/16 at 09:00 Fluconazole (Diflucan) 100 mg DAILY PEG Last administered on 11/29/16 08:22; Admin Dose 100 MG; Start 11/17/16 at 09:00 Lactobacillus Acidophilus (Florajen3 Capsule) 1 each TID PEG Last administered on 11/29/16 08:26; Admin Dose 1 EACH; Start 11/16/16 at 21:00 Metronidazole (Flagyl) 500 mg Q8 PEG Last administered on 11/29/16 05:33; Admin Dose 500 MG; Start 11/16/16 at 22:00 Promethazine HCl/ Codeine (Phenergan/ Codeine) 10 ml BID PRN PEG COUGH Last administered on 11/19/16 15:13; Admin Dose 10 ML; Start 11/16/16 at 20:00 Zolpidem Tartrate (Ambien) 5 mg QHS PRN PEG INSOMNIA; Start 11/16/16 at 20:00 Docusate Sodium (Colace Liquid Cup) 100 mg Q12 PRN GTB CONSTIPATION; Start 11/16 at 20:00 Oxycodone HCl 10 mg 10 mg Q4H PO Last administered on 11/29/16 10:22; Admin Dose 10 MG; Start 11/20/16 at 17:30 Sodium Chloride 1,000 ml @ 50 mls/hr Q20H IV Last administered on 11/29/16 02 :20; Admin Dose 50 MLS/HR; Start 11/23/16 at 04:00 Norepinephrine/ Dextrose (Levophed/D5W) 500 ml @ 1.87 mls/hr TITRATE IV Last administered on 11/29/16 02:21; Admin Dose 7.5 MLS/HR; Start 11/23/16 at 09:00 Midodrine 2.5 mg 2.5 mg TID@08,12,17 NGT Last administered on 11/29/16 10:17; Admin Dose 2.5 MG; Start 11/24/16 at 18:33 Vancomycin HCl (Vancocin) 100 ml @ 100 mls/hr Q12H IVPB Last administered on 05:32; Admin Dose 100 MLS/HR; Start 11/25/16 at 18:00 Miscellaneous Information (*Rx Drug Level Order Reminder*) VANCOMYCIN TROUGH AT 0500 ONCE ONCE XX ; Start 11/30/16 at 05:00; Stop 11/30/16 at 05:01 RUBIN MAYEN NP Nov 29, 2016 12:59
--- NOTE | 2016-11-29 17:24 | CONS ---
Date/Time of Note Date/Time of Note DATE: 11/29/16 TIME: 17:22 Assessment/Plan Assessment/Plan Additional Assessment/Plan 1. acute on chronic resp failure intubated on ventilator- not able to wean off s/p Tracheostomy today AM 2. PEA s/p resuscitation 3. Hyponatremia multifactorial 4. Pneumonia. 3. Lung cancer. 4. History of Clostridium difficile colitis and recurrent urinary tract infection. 5. Unstageable sacral wound, status post debridement with wound VAC application. PLAN: conitnue IV abx, ID following, S/p Tracheostomy making good urine Electrolytes stable afebrile, BP stable will follow up Consultation Date/Type/Reason Admit Date/Time Sep 26, 2016 at 20:07 Type of Consultation: NEPHROLOG Y Referring Provider: DRE LOBATO MD 24 HR Interval Summary Free Text/Dictation s/P Tracheostomy, doing well, afebrile, BP stable Exam/Review of Systems Vital Signs Vitals Vital Signs Date Time Temp Pulse Resp B/P Pulse Ox O2 Delivery O2 Flow Rate FiO2 11/29/16 17:13 93 20 100 30 11/29/16 17:00 111/85 Mechanical Ventilator 11/29/16 16:00 98.2 Intake and Output 11/28/16 11/28/16 11/29/16 15:00 23:00 07:00 Intake Total 794.96 ml 1212.77 ml 1240.0 ml Output Total 1078 ml 700 ml 520 ml Balance -283.04 ml 512.77 ml 720.0 ml Exam GENERAL: Chronically ill-appearing, cachectic, elderly woman who is intubated, in no distress. HEENT: + tracheostomy NECK: Supple. CHEST: Rise symmetrical. Breath sounds diminished. HEART: S1, S2. ABDOMEN: Soft. Bowel tones hypoactive. EXTREMITIES: No cyanosis. Results Result Diagram: 11/29/16 1203 11/29/16 0500 Results 24 hrs Laboratory Tests Test 11/29/16 05:00 11/29/16 05:10 11/29/16 12:03 White Blood Count 20.3 H 19.4 H Red Blood Count 3.65 #L 3.59 L Hemoglobin 9.9 #L 9.7 L Hematocrit 31.4 #L 31.1 L Mean Corpuscular Volume 86.0 86.6 Mean Corpuscular Hemoglobin 27.1 L 27.0 L Mean Corpuscular Hemoglobin Concent 31.5 L 31.2 L Red Cell Distribution Width 16.5 H 16.9 H Platelet Count 381 389 Mean Platelet Volume 9.7 9.1 Neutrophils % 76.2 77.2 H Lymphocytes % 10.7 L 9.8 L Monocytes % 10.1 9.1 Eosinophils % 1.6 2.5 Basophils % 0.6 0.5 Nucleated Red Blood Cells % 0.0 0.0 Neutrophils # 15.5 H 14.9 H Lymphocytes # 2.2 1.9 Monocytes # 2.1 H 1.8 H Eosinophils # 0.3 0.5 Basophils # 0.1 0.1 Nucleated Red Blood Cells # 0.0 0.0 Sodium Level 136 Potassium Level 3.9 Chloride Level 99 Carbon Dioxide Level 32 H Anion Gap 9 Blood Urea Nitrogen 13 Creatinine 0.48 Glucose Level 128 Calcium Level 8.0 L Lab Scanned Report BLOOD TRANSFUSION Medications Medications Current Medications Ondansetron HCl (Zofran Inj) 4 mg Q6 PRN IV NAUSEA AND/OR VOMITING; Start 09/26 at 22:30 Collagenase (Santyl) 1 applic DAILY TOP Last administered on 11/29/16 10:18; Admin Dose 1 APPLIC; Start 09/27/16 at 09:00 Collagenase (Santyl) 1 applic PRN PRN TOP SOILED OR DISLODGED DRESSING; Start 09/27/16 at 05:00 Lansoprazole (Prevacid) 30 mg DAILY@06 GTB Last administered on 11/29/16 05:33 ; Admin Dose 30 MG; Start 09/28/16 at 06:00 Cromolyn Sodium (Nasalcrom) 1 spray QID NASAL Last administered on 11/29/16 08 :23; Admin Dose 1 SPRAY; Start 09/29/16 at 11:02 Phenol (Cepastat Lozenge) 1 lozenge Q2H PRN MT SORE THROAT Last administered on 11/02/16 01:02; Admin Dose 1 LOZENGE; Start 10/01/16 at 19:00 IV Flush (NS 10 ml) 10 ml PRN PRN IV IV PROTOCOL Last administered on 11/17/16 03:20; Admin Dose 10 ML; Start 10/02/16 at 19:00 Hydromorphone HCl (Dilaudid) 0.5 mg Q4H PRN IV PAIN Last administered on 19:41; Admin Dose 0.5 MG; Start 10/06/16 at 18:30 Potassium Chloride 20 meq 20 meq DAILY GTB Last administered on 11/29/16 08:23 ; Admin Dose 20 MEQ; Start 10/30/16 at 12:00 Meropenem (Merrem 500 Mg/ 100 ml (Pmx)) 100 ml @ 200 mls/hr Q8 IVPB Last administered on 11/29/16 16:19; Admin Dose 200 MLS/HR; Start 11/14/16 at 14:00 Acetaminophen (Tylenol Liquid) 650 mg Q6H PRN PEG PAIN AND OR ELEVATED TEMP Last administered on 11/29/16 02:34; Admin Dose 650 MG; Start 11/16/16 at 20:04 Alprazolam (Xanax) 0.5 mg Q12H PRN PEG ANXIETY Last administered on 11/20/16 05 :30; Admin Dose 0.5 MG; Start 11/16/16 at 20:30 Ascorbic Acid (Vitamin C) 500 mg BID PEG Last administered on 11/29/16 08:22; Admin Dose 500 MG; Start 11/16/16 at 21:00 Atorvastatin Calcium (Lipitor) 20 mg QHS PEG Last administered on 11/28/16 21: 15; Admin Dose 20 MG; Start 11/16/16 at 21:00 Diazepam (Valium) 10 mg DAILY PEG Last administered on 11/29/16 10:22; Admin Dose 10 MG; Start 11/17/16 at 09:00 Duloxetine HCl (Cymbalta) 20 mg DAILY PEG Last administered on 11/29/16 08:22 ; Admin Dose 20 MG; Start 11/17/16 at 09:00 Fluconazole (Diflucan) 100 mg DAILY PEG Last administered on 11/29/16 08:22; Admin Dose 100 MG; Start 11/17/16 at 09:00 Lactobacillus Acidophilus (Florajen3 Capsule) 1 each TID PEG Last administered on 11/29/16 16:18; Admin Dose 1 EACH; Start 11/16/16 at 21:00 Metronidazole (Flagyl) 500 mg Q8 PEG Last administered on 11/29/16 16:19; Admin Dose 500 MG; Start 11/16/16 at 22:00 Promethazine HCl/ Codeine (Phenergan/ Codeine) 10 ml BID PRN PEG COUGH Last administered on 11/19/16 15:13; Admin Dose 10 ML; Start 11/16/16 at 20:00 Zolpidem Tartrate (Ambien) 5 mg QHS PRN PEG INSOMNIA; Start 11/16/16 at 20:00 Docusate Sodium (Colace Liquid Cup) 100 mg Q12 PRN GTB CONSTIPATION; Start 11/16 at 20:00 Oxycodone HCl 10 mg 10 mg Q4H PO Last administered on 11/29/16 16:19; Admin Dose 10 MG; Start 11/20/16 at 17:30 Sodium Chloride 1,000 ml @ 50 mls/hr Q20H IV Last administered on 11/29/16 02 :20; Admin Dose 50 MLS/HR; Start 11/23/16 at 04:00 Norepinephrine/ Dextrose (Levophed/D5W) 500 ml @ 1.87 mls/hr TITRATE IV Last administered on 11/29/16 02:21; Admin Dose 7.5 MLS/HR; Start 11/23/16 at 09:00 Midodrine 2.5 mg 2.5 mg TID@08,12,17 NGT Last administered on 11/29/16 16:18; Admin Dose 2.5 MG; Start 11/24/16 at 18:33 Vancomycin HCl (Vancocin) 100 ml @ 100 mls/hr Q12H IVPB Last administered on 05:32; Admin Dose 100 MLS/HR; Start 11/25/16 at 18:00 Miscellaneous Information (*Rx Drug Level Order Reminder*) VANCOMYCIN TROUGH AT 0500 ONCE ONCE XX ; Start 11/30/16 at 05:00; Stop 11/30/16 at 05:01 DIONNE SAUCEDA MD Nov 29, 2016 17:24
--- NOTE | 2016-11-29 19:24 | CONS ---
Date/Time of Note Date/Time of Note DATE: 11/29/16 TIME: 19:23 Assessment/Plan Assessment/Plan Chief Complaint/Hosp Course Left lung squamous carcinoma. The patient is not a candidate for chemotherapy. Anemia of chronic disease. post 8 u prbc monitor blood count closely transfuse as needed to keep HB above 8 Acute respiratory insufficiency requiring BiPAP. trach -per daughter's wishes Acute shock, septic versus hypovolemic. tachycardia with episode of SVT. Chronic obstructive pulmonary disease. Dysphagia with G-tube. Continue current G-tube feeding. Hypothyroidism. Continue Synthroid. Problems: Consultation Date/Type/Reason Admit Date/Time Sep 26, 2016 at 20:07 Initial Consult Date 10/19/16 Type of Consultation: HEMEON Referring Provider: DRE LOBATO MD 24 HR Interval Summary Free Text/Dictation ALL NOTED D/W RN POST TRACH NO BLEEDING Exam/Review of Systems Vital Signs Vitals Vital Signs Date Time Temp Pulse Resp B/P Pulse Ox O2 Delivery O2 Flow Rate FiO2 11/29/16 18:00 91 19 106/76 97 Mechanical Ventilator 11/29/16 17:13 30 11/29/16 16:00 98.2 Intake and Output 11/28/16 11/28/16 11/29/16 15:00 23:00 07:00 Intake Total 794.96 ml 1212.77 ml 1240.0 ml Output Total 1078 ml 700 ml 520 ml Balance -283.04 ml 512.77 ml 720.0 ml Exam Constitutional: frail Head: normocephalic ENMT: other (tracheostomy) Respiratory: diminished breath sounds Cardiovascular: nl pulses Gastrointestinal: non-tender, other (G-tube), soft Extremities: normal pulses Skin: other (Multiple wounds) Results Result Diagram: 11/29/16 1203 11/29/16 0500 Results 24 hrs Laboratory Tests Test 11/29/16 05:00 11/29/16 05:10 11/29/16 12:03 White Blood Count 20.3 H 19.4 H Red Blood Count 3.65 #L 3.59 L Hemoglobin 9.9 #L 9.7 L Hematocrit 31.4 #L 31.1 L Mean Corpuscular Volume 86.0 86.6 Mean Corpuscular Hemoglobin 27.1 L 27.0 L Mean Corpuscular Hemoglobin Concent 31.5 L 31.2 L Red Cell Distribution Width 16.5 H 16.9 H Platelet Count 381 389 Mean Platelet Volume 9.7 9.1 Neutrophils % 76.2 77.2 H Lymphocytes % 10.7 L 9.8 L Monocytes % 10.1 9.1 Eosinophils % 1.6 2.5 Basophils % 0.6 0.5 Nucleated Red Blood Cells % 0.0 0.0 Neutrophils # 15.5 H 14.9 H Lymphocytes # 2.2 1.9 Monocytes # 2.1 H 1.8 H Eosinophils # 0.3 0.5 Basophils # 0.1 0.1 Nucleated Red Blood Cells # 0.0 0.0 Sodium Level 136 Potassium Level 3.9 Chloride Level 99 Carbon Dioxide Level 32 H Anion Gap 9 Blood Urea Nitrogen 13 Creatinine 0.48 Glucose Level 128 Calcium Level 8.0 L Lab Scanned Report BLOOD TRANSFUSION Medications Medications Current Medications Ondansetron HCl (Zofran Inj) 4 mg Q6 PRN IV NAUSEA AND/OR VOMITING; Start 09/26 at 22:30 Collagenase (Santyl) 1 applic DAILY TOP Last administered on 11/29/16 10:18; Admin Dose 1 APPLIC; Start 09/27/16 at 09:00 Collagenase (Santyl) 1 applic PRN PRN TOP SOILED OR DISLODGED DRESSING; Start 09/27/16 at 05:00 Lansoprazole (Prevacid) 30 mg DAILY@06 GTB Last administered on 11/29/16 05:33 ; Admin Dose 30 MG; Start 09/28/16 at 06:00 Cromolyn Sodium (Nasalcrom) 1 spray QID NASAL Last administered on 11/29/16 08 :23; Admin Dose 1 SPRAY; Start 09/29/16 at 11:02 Phenol (Cepastat Lozenge) 1 lozenge Q2H PRN MT SORE THROAT Last administered on 11/02/16 01:02; Admin Dose 1 LOZENGE; Start 10/01/16 at 19:00 IV Flush (NS 10 ml) 10 ml PRN PRN IV IV PROTOCOL Last administered on 11/17/16 03:20; Admin Dose 10 ML; Start 10/02/16 at 19:00 Hydromorphone HCl (Dilaudid) 0.5 mg Q4H PRN IV PAIN Last administered on 19:41; Admin Dose 0.5 MG; Start 10/06/16 at 18:30 Potassium Chloride 20 meq 20 meq DAILY GTB Last administered on 11/29/16 08:23 ; Admin Dose 20 MEQ; Start 10/30/16 at 12:00 Meropenem (Merrem 500 Mg/ 100 ml (Pmx)) 100 ml @ 200 mls/hr Q8 IVPB Last administered on 11/29/16 16:19; Admin Dose 200 MLS/HR; Start 11/14/16 at 14:00 Acetaminophen (Tylenol Liquid) 650 mg Q6H PRN PEG PAIN AND OR ELEVATED TEMP Last administered on 11/29/16 02:34; Admin Dose 650 MG; Start 11/16/16 at 20:04 Alprazolam (Xanax) 0.5 mg Q12H PRN PEG ANXIETY Last administered on 11/20/16 05 :30; Admin Dose 0.5 MG; Start 11/16/16 at 20:30 Ascorbic Acid (Vitamin C) 500 mg BID PEG Last administered on 11/29/16 08:22; Admin Dose 500 MG; Start 11/16/16 at 21:00 Atorvastatin Calcium (Lipitor) 20 mg QHS PEG Last administered on 11/28/16 21: 15; Admin Dose 20 MG; Start 11/16/16 at 21:00 Diazepam (Valium) 10 mg DAILY PEG Last administered on 11/29/16 10:22; Admin Dose 10 MG; Start 11/17/16 at 09:00 Duloxetine HCl (Cymbalta) 20 mg DAILY PEG Last administered on 11/29/16 08:22 ; Admin Dose 20 MG; Start 11/17/16 at 09:00 Fluconazole (Diflucan) 100 mg DAILY PEG Last administered on 11/29/16 08:22; Admin Dose 100 MG; Start 11/17/16 at 09:00 Lactobacillus Acidophilus (Florajen3 Capsule) 1 each TID PEG Last administered on 11/29/16 16:18; Admin Dose 1 EACH; Start 11/16/16 at 21:00 Metronidazole (Flagyl) 500 mg Q8 PEG Last administered on 11/29/16 16:19; Admin Dose 500 MG; Start 11/16/16 at 22:00 Promethazine HCl/ Codeine (Phenergan/ Codeine) 10 ml BID PRN PEG COUGH Last administered on 11/19/16 15:13; Admin Dose 10 ML; Start 11/16/16 at 20:00 Zolpidem Tartrate (Ambien) 5 mg QHS PRN PEG INSOMNIA; Start 11/16/16 at 20:00 Docusate Sodium (Colace Liquid Cup) 100 mg Q12 PRN GTB CONSTIPATION; Start 11/16 at 20:00 Oxycodone HCl 10 mg 10 mg Q4H PO Last administered on 11/29/16 16:19; Admin Dose 10 MG; Start 11/20/16 at 17:30 Sodium Chloride 1,000 ml @ 50 mls/hr Q20H IV Last administered on 11/29/16 02 :20; Admin Dose 50 MLS/HR; Start 11/23/16 at 04:00 Norepinephrine/ Dextrose (Levophed/D5W) 500 ml @ 1.87 mls/hr TITRATE IV Last administered on 11/29/16 02:21; Admin Dose 7.5 MLS/HR; Start 11/23/16 at 09:00 Midodrine 2.5 mg 2.5 mg TID@08,12,17 NGT Last administered on 11/29/16 16:18; Admin Dose 2.5 MG; Start 11/24/16 at 18:33 Vancomycin HCl (Vancocin) 100 ml @ 100 mls/hr Q12H IVPB Last administered on 18:13; Admin Dose 100 MLS/HR; Start 11/25/16 at 18:00 Miscellaneous Information (*Rx Drug Level Order Reminder*) VANCOMYCIN TROUGH AT 0500 ONCE ONCE XX ; Start 11/30/16 at 05:00; Stop 11/30/16 at 05:01 DYLLAN CARRION MD Nov 29, 2016 19:24
[2016-11-29] MEDS: ATORVASTATIN 20 MG TAB PEG SCH (21:05)
[2016-11-30] VITALS (35 sets, daily range): BP systolic 79–116; BP diastolic 56–88; PULSE 89–118; RESP 16–26
[2016-11-30] MEDS: oxyCODONE 5 MG TAB PO SCH ×6 (01:49→21:04)
[2016-11-30] MEDS: metroNIDAZOLE 500 MG TAB PEG SCH ×3 (05:31→22:32)
[2016-11-30] MEDS: LANSOPRAZOLE 30 MG CAP GTB SCH (05:31)
[2016-11-30] MEDS: MEROPENEM 500 MG/100 ML (PMX) 100 ML IVPB SCH ×3 (05:31→22:32)
[2016-11-30] MEDS: VANCOMYCIN 500MG/NS (PMX) 100 ML IVPB SCH ×2 (05:31→17:48)
[2016-11-30 07:24] LABS: CALCIUM 8.1 mg/dl (8.4-10.2); CREATININE 0.46 mg/dl (0.44-1.00); POTASSIUM 3.6 mmol/L (3.5-5.1)
[2016-11-30] MEDS: HYDROmorphONE 1 MG/ML SYG IV PRN ×3 (07:51→23:33)
[2016-11-30] MEDS: MIDODRINE 2.5 MG TAB NGT SCH ×3 (07:53→17:48)
[2016-11-30] MEDS: LEVOTHYROXINE 125 MCG TAB PEG SCH (07:53)
[2016-11-30] MEDS: COLLAGENASE 30 GM TUBE TOP SCH (09:00)
--- NOTE | 2016-11-30 09:34 | PN ---
Date/Time of Note Date/Time of Note DATE: 11/30/16 TIME: 09:26 Assessment/Plan VTE Prophylaxis VTE Prophylaxis Intervention: SCD's Lines/Catheters IV Catheter Type (from Nrs): PICC Line Central line still needed: Yes Urinary Cath still in place: Yes Reason Cath still needed: urinary retention Assessment/Plan Assessment/Plan 1. Status post tracheostomy by Dr. White, ENT, on 11/28/2016. - per ENT recommendations. - Continue to follow up current tracheostomy care. 2. Status post cardiopulmonary arrest. 3. Septic shock. Continue antibiotics per ID. 4. Acute respiratory failure. Continue ventilatory support. 5. Left lung squamous carcinoma. 6. Chronic obstructive pulmonary disease with history of long-time tobacco use. 7. Anemia of chronic disease. - per Dr. Calvo in hematology consultation. - status post transfusion yesterday for hemoglobin of 7.1. Hgb 9.7 today 8. Hypothyroidism. Continue Synthroid. 9. Failure to thrive and dysphagia with G-tube. - aspiration precautions Sequential compression device for deep venous thrombosis prophylaxis and Prevacid for peptic ulcer disease prophylaxis. Total critical time spent is 30 mins. Further recommendations based on clinical course. Plan of care discussed with Dr. Dozier. Subjective 24 Hr Interval Summary Free Text/Dictation Alert, awake, responsive to name, touch, pain, follows simple commands. sp tracheostomy on 11/28/2016- remains on vent. afebrile, dw staff- no new issues reported. Constitutional: requiring IVF, requiring O2 Respiratory: no complaints Cardiovascular: no complaints Gastrointestinal: no complaints Exam/Review of Systems Vital Signs Vitals Vital Signs Date Time Temp Pulse Resp B/P Pulse Ox O2 Delivery O2 Flow Rate FiO2 11/30/16 09:00 98.3 93 21 109/75 100 Mechanical Ventilator 11/30/16 05:00 30 Intake and Output 11/29/16 11/29/16 11/30/16 15:00 23:00 07:00 Intake Total 1028.5 ml 1180 ml 1120 ml Output Total 400 ml 675 ml 560 ml Balance 628.5 ml 505 ml 560 ml Exam Constitutional: alert Respiratory: clear to auscultation, normal air movement Cardiovascular: nl pulses, regular rate and rhythm Gastrointestinal: non-tender, other (gt intact), soft Musculoskeletal: other Extremities: normal pulses Neurological: other (Alert, awake, responsive to name, touch, pain, follows simple commands. ) Skin: other Results Result Diagram: 11/29/16 1203 11/30/16 0530 Results 24 hrs Laboratory Tests Test 11/29/16 12:03 11/30/16 05:15 11/30/16 05:30 White Blood Count 19.4 H Red Blood Count 3.59 L Hemoglobin 9.7 L Hematocrit 31.1 L Mean Corpuscular Volume 86.6 Mean Corpuscular Hemoglobin 27.0 L Mean Corpuscular Hemoglobin Concent 31.2 L Red Cell Distribution Width 16.9 H Platelet Count 389 Mean Platelet Volume 9.1 Neutrophils % 77.2 H Lymphocytes % 9.8 L Monocytes % 9.1 Eosinophils % 2.5 Basophils % 0.5 Nucleated Red Blood Cells % 0.0 Neutrophils # 14.9 H Lymphocytes # 1.9 Monocytes # 1.8 H Eosinophils # 0.5 Basophils # 0.1 Nucleated Red Blood Cells # 0.0 Lab Scanned Report BLOOD TRANSFUSION Sodium Level 136 Potassium Level 3.6 Chloride Level 99 Carbon Dioxide Level 30 Anion Gap 11 Blood Urea Nitrogen 14 Creatinine 0.46 Glucose Level 112 Calcium Level 8.1 L Vancomycin Level Trough 15.0 Medications Medications Current Medications Ondansetron HCl (Zofran Inj) 4 mg Q6 PRN IV NAUSEA AND/OR VOMITING; Start 09/26 at 22:30 Collagenase (Santyl) 1 applic DAILY TOP Last administered on 11/29/16 10:18; Admin Dose 1 APPLIC; Start 09/27/16 at 09:00 Collagenase (Santyl) 1 applic PRN PRN TOP SOILED OR DISLODGED DRESSING; Start 09/27/16 at 05:00 Lansoprazole (Prevacid) 30 mg DAILY@06 GTB Last administered on 11/30/16 05:31 ; Admin Dose 30 MG; Start 09/28/16 at 06:00 Cromolyn Sodium (Nasalcrom) 1 spray QID NASAL Last administered on 11/29/16 21 :06; Admin Dose 1 SPRAY; Start 09/29/16 at 11:02 Phenol (Cepastat Lozenge) 1 lozenge Q2H PRN MT SORE THROAT Last administered on 11/02/16 01:02; Admin Dose 1 LOZENGE; Start 10/01/16 at 19:00 IV Flush (NS 10 ml) 10 ml PRN PRN IV IV PROTOCOL Last administered on 11/17/16 03:20; Admin Dose 10 ML; Start 10/02/16 at 19:00 Hydromorphone HCl (Dilaudid) 0.5 mg Q4H PRN IV PAIN Last administered on 07:51; Admin Dose 0.5 MG; Start 10/06/16 at 18:30 Potassium Chloride 20 meq 20 meq DAILY GTB Last administered on 11/29/16 08:23 ; Admin Dose 20 MEQ; Start 10/30/16 at 12:00 Meropenem (Merrem 500 Mg/ 100 ml (Pmx)) 100 ml @ 200 mls/hr Q8 IVPB Last administered on 11/30/16 05:31; Admin Dose 200 MLS/HR; Start 11/14/16 at 14:00 Acetaminophen (Tylenol Liquid) 650 mg Q6H PRN PEG PAIN AND OR ELEVATED TEMP Last administered on 11/29/16 02:34; Admin Dose 650 MG; Start 11/16/16 at 20:04 Alprazolam (Xanax) 0.5 mg Q12H PRN PEG ANXIETY Last administered on 11/20/16 05 :30; Admin Dose 0.5 MG; Start 11/16/16 at 20:30 Ascorbic Acid (Vitamin C) 500 mg BID PEG Last administered on 11/29/16 21:05; Admin Dose 500 MG; Start 11/16/16 at 21:00 Atorvastatin Calcium (Lipitor) 20 mg QHS PEG Last administered on 11/29/16 21: 05; Admin Dose 20 MG; Start 11/16/16 at 21:00 Diazepam (Valium) 10 mg DAILY PEG Last administered on 11/29/16 10:22; Admin Dose 10 MG; Start 11/17/16 at 09:00 Duloxetine HCl (Cymbalta) 20 mg DAILY PEG Last administered on 11/29/16 08:22 ; Admin Dose 20 MG; Start 11/17/16 at 09:00 Fluconazole (Diflucan) 100 mg DAILY PEG Last administered on 11/29/16 08:22; Admin Dose 100 MG; Start 11/17/16 at 09:00 Lactobacillus Acidophilus (Florajen3 Capsule) 1 each TID PEG Last administered on 11/29/16 21:05; Admin Dose 1 EACH; Start 11/16/16 at 21:00 Metronidazole (Flagyl) 500 mg Q8 PEG Last administered on 11/30/16 05:31; Admin Dose 500 MG; Start 11/16/16 at 22:00 Promethazine HCl/ Codeine (Phenergan/ Codeine) 10 ml BID PRN PEG COUGH Last administered on 11/19/16 15:13; Admin Dose 10 ML; Start 11/16/16 at 20:00 Zolpidem Tartrate (Ambien) 5 mg QHS PRN PEG INSOMNIA; Start 11/16/16 at 20:00 Docusate Sodium (Colace Liquid Cup) 100 mg Q12 PRN GTB CONSTIPATION; Start 11/16 at 20:00 Oxycodone HCl 10 mg 10 mg Q4H PO Last administered on 11/30/16 05:31; Admin Dose 10 MG; Start 11/20/16 at 17:30 Sodium Chloride 1,000 ml @ 50 mls/hr Q20H IV Last administered on 11/29/16 22 :30; Admin Dose 50 MLS/HR; Start 11/23/16 at 04:00 Norepinephrine/ Dextrose (Levophed/D5W) 500 ml @ 1.87 mls/hr TITRATE IV Last administered on 11/29/16 02:21; Admin Dose 7.5 MLS/HR; Start 11/23/16 at 09:00 Midodrine 2.5 mg 2.5 mg TID@08,12,17 NGT Last administered on 11/30/16 07:53; Admin Dose 2.5 MG; Start 11/24/16 at 18:33 Vancomycin HCl (Vancocin) 100 ml @ 100 mls/hr Q12H IVPB Last administered on 05:31; Admin Dose 100 MLS/HR; Start 11/25/16 at 18:00 VIKASH CASTANEDA Nov 30, 2016 09:34
[2016-11-30] MEDS: POTASSIUM CHLORIDE 20 MEQ POWDER FOR ORAL SOLN GTB SCH (09:35)
[2016-11-30] MEDS: L ACIDOPHIL/B LACTIS/B LONGUM CAPSULE PEG SCH ×3 (09:35→21:00)
[2016-11-30] MEDS: ASCORBIC ACID 500 MG TAB PEG SCH ×2 (09:36→21:04)
[2016-11-30] MEDS: FLUCONAZOLE 100 MG TAB PEG SCH (09:36)
[2016-11-30] MEDS: PROMETHAZINE/CODEINE 5ML CUP PEG PRN (09:36)
[2016-11-30] MEDS: DIAZEPAM 5 MG TAB PEG SCH (09:36)
[2016-11-30] MEDS: DULOXETINE 20 MG CAP DR PEG SCH (09:36)
[2016-11-30] MEDS: CROMOLYN 4% 26ML NAS INH NASAL SCH ×4 (09:39→21:04)
--- NOTE | 2016-11-30 10:58 | PN ---
DATE: 11/30/2016 The patient remains stable, awake, alert and oriented. Tracheostomy and G-tube in place. Currently not requiring vasopressors. PHYSICAL EXAMINATION: VITAL SIGNS: Temperature 98, pulse is 93, blood pressure 109/75, O2 saturations 96% on FIO2 of 40%. NECK: Trach site is clean and intact. CARDIAC EXAM: S1, S2. No added sounds or murmurs. CHEST: Diminished air entry bilaterally. No rales or wheezes. ABDOMEN: Soft, nontender. No guarding or rebound. EXTREMITIES: No cyanosis, clubbing or edema. NEUROLOGIC: No focal deficits. LABORATORY: White count 19.4, hemoglobin 9.7, platelets of 389. BUN 14, creatinine 0.46. IMAGING: Chest x-ray is pending at the time of this dictation. IMPRESSION AND PLAN: 1. Acute on chronic hypoxemic respiratory failure, now with a tracheostomy in place. 2. History of lung cancer. 3. Status post cardiopulmonary arrest. 4. Dysphagia, now with G-tube. PLAN: 1. Continue vent support. 2. Pulmonary toilet. 3. Tracheostomy care. 4. Tube feeding as tolerated. 5. Transfer to telemetry floor. 6. DVT and GI prophylaxis. Dictated By: CASSIE MORALEZ/SANDER Conf#: [id number] DID#: [id number]
--- NOTE | 2016-11-30 12:39 | CONS ---
Date/Time of Note Date/Time of Note DATE: 11/30/16 TIME: 12:38 Assessment/Plan Assessment/Plan Chief Complaint/Hosp Course SUBJECTIVE: No events, looks comfortable, afebrile. Off Levophed gtt INDWELLINGS: Trach, PEG, George, PICC line. ANTIMICROBIALS: 1. Fluconazole. 2. Flagyl. 3. Vancomycin. 4. Meropenem. PHYSICAL EXAMINATION: GENERAL: Chronically ill-appearing, cachectic, elderly woman who is intubated, in no distress. HEENT: Head atraumatic, normocephalic. Sclerae anicteric. Buccal mucosa dry. NECK: Supple. CHEST: Rise symmetrical. Breath sounds diminished. HEART: S1, S2. ABDOMEN: Soft. Bowel tones hypoactive. EXTREMITIES: No cyanosis. ASSESSMENT: 1. Acute on chronic respiratory failure, status post cardiopulmonary arrest. 2. Pneumonia. 3. Lung cancer. 4. History of Clostridium difficile colitis and recurrent urinary tract infection. 5. Unstageable sacral wound, status post debridement with wound VAC application. PLAN: Hemodynamically stable, continue on broad spectrum antibiotics for now. KARRI RN Problems: Consultation Date/Type/Reason Admit Date/Time Sep 26, 2016 at 20:07 Type of Consultation: id Referring Provider: DRE LOBATO MD Exam/Review of Systems Vital Signs Vitals Vital Signs Date Time Temp Pulse Resp B/P Pulse Ox O2 Delivery O2 Flow Rate FiO2 11/30/16 12:00 99 11/30/16 09:00 98.3 21 109/75 100 Mechanical Ventilator 11/30/16 05:00 30 Intake and Output 11/29/16 11/29/16 11/30/16 14:59 22:59 06:59 Intake Total 1036.0 ml 1180 ml 1180 ml Output Total 500 ml 620 ml 615 ml Balance 536.0 ml 560 ml 565 ml Results Result Diagram: 11/29/16 1203 11/30/16 0530 Results 24 hrs Laboratory Tests Test 11/30/16 05:15 11/30/16 05:30 Lab Scanned Report BLOOD TRANSFUSION Sodium Level 136 Potassium Level 3.6 Chloride Level 99 Carbon Dioxide Level 30 Anion Gap 11 Blood Urea Nitrogen 14 Creatinine 0.46 Glucose Level 112 Calcium Level 8.1 L Vancomycin Level Trough 15.0 Medications Medications Current Medications Ondansetron HCl (Zofran Inj) 4 mg Q6 PRN IV NAUSEA AND/OR VOMITING; Start 09/26 at 22:30 Collagenase (Santyl) 1 applic DAILY TOP Last administered on 11/29/16 10:18; Admin Dose 1 APPLIC; Start 09/27/16 at 09:00 Collagenase (Santyl) 1 applic PRN PRN TOP SOILED OR DISLODGED DRESSING; Start 09/27/16 at 05:00 Lansoprazole (Prevacid) 30 mg DAILY@06 GTB Last administered on 11/30/16 05:31 ; Admin Dose 30 MG; Start 09/28/16 at 06:00 Cromolyn Sodium (Nasalcrom) 1 spray QID NASAL Last administered on 11/30/16 09 :39; Admin Dose 1 SPRAY; Start 09/29/16 at 11:02 Phenol (Cepastat Lozenge) 1 lozenge Q2H PRN MT SORE THROAT Last administered on 11/02/16 01:02; Admin Dose 1 LOZENGE; Start 10/01/16 at 19:00 IV Flush (NS 10 ml) 10 ml PRN PRN IV IV PROTOCOL Last administered on 11/17/16 03:20; Admin Dose 10 ML; Start 10/02/16 at 19:00 Hydromorphone HCl (Dilaudid) 0.5 mg Q4H PRN IV PAIN Last administered on 07:51; Admin Dose 0.5 MG; Start 10/06/16 at 18:30 Potassium Chloride 20 meq 20 meq DAILY GTB Last administered on 11/30/16 09:35 ; Admin Dose 20 MEQ; Start 10/30/16 at 12:00 Meropenem (Merrem 500 Mg/ 100 ml (Pmx)) 100 ml @ 200 mls/hr Q8 IVPB Last administered on 11/30/16 05:31; Admin Dose 200 MLS/HR; Start 11/14/16 at 14:00 Acetaminophen (Tylenol Liquid) 650 mg Q6H PRN PEG PAIN AND OR ELEVATED TEMP Last administered on 11/29/16 02:34; Admin Dose 650 MG; Start 11/16/16 at 20:04 Alprazolam (Xanax) 0.5 mg Q12H PRN PEG ANXIETY Last administered on 11/20/16 05 :30; Admin Dose 0.5 MG; Start 11/16/16 at 20:30 Ascorbic Acid (Vitamin C) 500 mg BID PEG Last administered on 11/30/16 09:36; Admin Dose 500 MG; Start 11/16/16 at 21:00 Atorvastatin Calcium (Lipitor) 20 mg QHS PEG Last administered on 11/29/16 21: 05; Admin Dose 20 MG; Start 11/16/16 at 21:00 Diazepam (Valium) 10 mg DAILY PEG Last administered on 11/30/16 09:36; Admin Dose 10 MG; Start 11/17/16 at 09:00 Duloxetine HCl (Cymbalta) 20 mg DAILY PEG Last administered on 11/30/16 09:36 ; Admin Dose 20 MG; Start 11/17/16 at 09:00 Fluconazole (Diflucan) 100 mg DAILY PEG Last administered on 11/30/16 09:36; Admin Dose 100 MG; Start 11/17/16 at 09:00 Lactobacillus Acidophilus (Florajen3 Capsule) 1 each TID PEG Last administered on 11/30/16 09:35; Admin Dose 1 EACH; Start 11/16/16 at 21:00 Metronidazole (Flagyl) 500 mg Q8 PEG Last administered on 11/30/16 05:31; Admin Dose 500 MG; Start 11/16/16 at 22:00 Promethazine HCl/ Codeine (Phenergan/ Codeine) 10 ml BID PRN PEG COUGH Last administered on 11/30/16 09:36; Admin Dose 10 ML; Start 11/16/16 at 20:00 Zolpidem Tartrate (Ambien) 5 mg QHS PRN PEG INSOMNIA; Start 11/16/16 at 20:00 Docusate Sodium (Colace Liquid Cup) 100 mg Q12 PRN GTB CONSTIPATION; Start 11/16 at 20:00 Oxycodone HCl 10 mg 10 mg Q4H PO Last administered on 11/30/16 09:37; Admin Dose 10 MG; Start 11/20/16 at 17:30 Sodium Chloride 1,000 ml @ 50 mls/hr Q20H IV Last administered on 11/29/16 22 :30; Admin Dose 50 MLS/HR; Start 11/23/16 at 04:00 Norepinephrine/ Dextrose (Levophed/D5W) 500 ml @ 1.87 mls/hr TITRATE IV Last administered on 11/29/16 02:21; Admin Dose 7.5 MLS/HR; Start 11/23/16 at 09:00 Midodrine 2.5 mg 2.5 mg TID@08,,17 NGT Last administered on 11/30/16 07:53; Admin Dose 2.5 MG; Start 11/24/16 at 18:33 Vancomycin HCl (Vancocin) 100 ml @ 100 mls/hr Q12H IVPB Last administered on 05:31; Admin Dose 100 MLS/HR; Start 11/25/16 at 18:00 RUBIN MAYEN NP Nov 30, 2016 12:39
--- NOTE | 2016-11-30 14:27 | CONS ---
Date/Time of Note Date/Time of Note DATE: 11/30/16 TIME: 14:23 Assessment/Plan Assessment/Plan Additional Assessment/Plan Sepsis Respiratory failure Cardiopulmonary Arrest Hypotension, improved Acute decompensated diastolic congestive heart failure Pulmonary hypertension Preserved ejection fraction Tricuspid valve regurgitation Lung cancer SVT -Patient off IV pressor. Would start gentle diuretics as blood pressure and renal function permits. Maintain potassium above 4.0 and magnesium above 2.0. Consultation Date/Type/Reason Admit Date/Time Sep 26, 2016 at 20:07 Type of Consultation: cv Referring Provider: DRE LOBATO MD 24 HR Interval Summary Free Text/Dictation Patient off IV pressor. Patient denies chest pain or shortness of breath Exam/Review of Systems Vital Signs Vitals Vital Signs Date Time Temp Pulse Resp B/P Pulse Ox O2 Delivery O2 Flow Rate FiO2 11/30/16 14:00 95 22 108/77 99 Mechanical Ventilator 11/30/16 12:00 98.4 11/30/16 05:00 30 Intake and Output 11/29/16 11/29/16 11/30/16 15:00 23:00 07:00 Intake Total 1028.5 ml 1180 ml 1180 ml Output Total 400 ml 675 ml 660 ml Balance 628.5 ml 505 ml 520 ml Exam Follows commands, no apparent distress Constitutional: alert Head: normocephalic Neck: other (Tracheostomy) Respiratory: other (Coarse breath sounds bilaterally, no wheezing) Cardiovascular: other (S1-S2 heard), regular rate and rhythm Gastrointestinal: bowel sounds, non-tender, soft Extremities: other (No significant edema) Results Result Diagram: 11/29/16 1203 11/30/16 0530 Results 24 hrs Laboratory Tests Test 11/30/16 05:15 11/30/16 05:30 Lab Scanned Report BLOOD TRANSFUSION Sodium Level 136 Potassium Level 3.6 Chloride Level 99 Carbon Dioxide Level 30 Anion Gap 11 Blood Urea Nitrogen 14 Creatinine 0.46 Glucose Level 112 Calcium Level 8.1 L Vancomycin Level Trough 15.0 Medications Medications Current Medications Ondansetron HCl (Zofran Inj) 4 mg Q6 PRN IV NAUSEA AND/OR VOMITING; Start 09/26 at 22:30 Collagenase (Santyl) 1 applic DAILY TOP Last administered on 11/29/16t 10:18; Admin Dose 1 APPLIC; Start 09/27/16 at 09:00 Collagenase (Santyl) 1 applic PRN PRN TOP SOILED OR DISLODGED DRESSING; Start 09/27/16 at 05:00 Lansoprazole (Prevacid) 30 mg DAILY@06 GTB Last administered on 11/30/16 05:31 ; Admin Dose 30 MG; Start 09/28/16 at 06:00 Cromolyn Sodium (Nasalcrom) 1 spray QID NASAL Last administered on 11/30/16 13 :48; Admin Dose 1 SPRAY; Start 09/29/16 at 11:02 Phenol (Cepastat Lozenge) 1 lozenge Q2H PRN MT SORE THROAT Last administered on 11/02/16 01:02; Admin Dose 1 LOZENGE; Start 10/01/16 at 19:00 IV Flush (NS 10 ml) 10 ml PRN PRN IV IV PROTOCOL Last administered on 11/17/16 03:20; Admin Dose 10 ML; Start 10/02/16 at 19:00 Hydromorphone HCl (Dilaudid) 0.5 mg Q4H PRN IV PAIN Last administered on 07:51; Admin Dose 0.5 MG; Start 10/06/16 at 18:30 Potassium Chloride 20 meq 20 meq DAILY GTB Last administered on 11/30/16 09:35 ; Admin Dose 20 MEQ; Start 10/30/16 at 12:00 Meropenem (Merrem 500 Mg/ 100 ml (Pmx)) 100 ml @ 200 mls/hr Q8 IVPB Last administered on 11/30/16 13:48; Admin Dose 200 MLS/HR; Start 11/14/16 at 14:00 Acetaminophen (Tylenol Liquid) 650 mg Q6H PRN PEG PAIN AND OR ELEVATED TEMP Last administered on 11/29/16 02:34; Admin Dose 650 MG; Start 11/16/16 at 20:04 Alprazolam (Xanax) 0.5 mg Q12H PRN PEG ANXIETY Last administered on 11/20/16 05 :30; Admin Dose 0.5 MG; Start 11/16/16 at 20:30 Ascorbic Acid (Vitamin C) 500 mg BID PEG Last administered on 11/30/16 09:36; Admin Dose 500 MG; Start 11/16/16 at 21:00 Atorvastatin Calcium (Lipitor) 20 mg QHS PEG Last administered on 11/29/16 21: 05; Admin Dose 20 MG; Start 11/16/16 at 21:00 Diazepam (Valium) 10 mg DAILY PEG Last administered on 11/30/16 09:36; Admin Dose 10 MG; Start 11/17/16 at 09:00 Duloxetine HCl (Cymbalta) 20 mg DAILY PEG Last administered on 11/30/16 09:36 ; Admin Dose 20 MG; Start 11/17/16 at 09:00 Fluconazole (Diflucan) 100 mg DAILY PEG Last administered on 11/30/16 09:36; Admin Dose 100 MG; Start 11/17/16 at 09:00 Lactobacillus Acidophilus (Florajen3 Capsule) 1 each TID PEG Last administered on 11/30/16 13:47; Admin Dose 1 EACH; Start 11/16/16 at 21:00 Metronidazole (Flagyl) 500 mg Q8 PEG Last administered on 11/30/16 13:47; Admin Dose 500 MG; Start 11/16/16 at 22:00 Promethazine HCl/ Codeine (Phenergan/ Codeine) 10 ml BID PRN PEG COUGH Last administered on 11/30/16 09:36; Admin Dose 10 ML; Start 11/16/16 at 20:00 Zolpidem Tartrate (Ambien) 5 mg QHS PRN PEG INSOMNIA; Start 11/16/16 at 20:00 Docusate Sodium (Colace Liquid Cup) 100 mg Q12 PRN GTB CONSTIPATION; Start 11/16 at 20:00 Oxycodone HCl 10 mg 10 mg Q4H PO Last administered on 11/30/16 13:48; Admin Dose 10 MG; Start 11/20/16 at 17:30 Sodium Chloride 1,000 ml @ 50 mls/hr Q20H IV Last administered on 11/29/16 22 :30; Admin Dose 50 MLS/HR; Start 11/23/16 at 04:00 Norepinephrine/ Dextrose (Levophed/D5W) 500 ml @ 1.87 mls/hr TITRATE IV Last administered on 11/29/16 02:21; Admin Dose 7.5 MLS/HR; Start 11/23/16 at 09:00 Midodrine 2.5 mg 2.5 mg TID@08,12,17 NGT Last administered on 11/30/16 13:48; Admin Dose 2.5 MG; Start 11/24/16 at 18:33 Vancomycin HCl (Vancocin) 100 ml @ 100 mls/hr Q12H IVPB Last administered on 05:31; Admin Dose 100 MLS/HR; Start 11/25/16 at 18:00 Artemio Tipton DO Nov 30, 2016 14:27
[2016-11-30] MEDS ORDERED: POTASSIUM CHLORIDE 20 MEQ POWDER FOR ORAL SOLN GTB ONE (15:00)
--- NOTE | 2016-11-30 16:38 | CONS ---
Date/Time of Note Date/Time of Note DATE: 11/30/16 TIME: 16:37 Assessment/Plan Assessment/Plan Additional Assessment/Plan 1. acute on chronic resp failure intubated on ventilator- not able to wean off s/p Tracheostomy 2. PEA s/p resuscitation 3. Hyponatremia multifactorial 4. Pneumonia. 3. Lung cancer. 4. History of Clostridium difficile colitis and recurrent urinary tract infection. 5. Unstageable sacral wound, status post debridement with wound VAC application. PLAN: conitnue IV abx, ID following, S/p Tracheostomy making good urine Electrolytes stable afebrile, BP stable will follow up Consultation Date/Type/Reason Admit Date/Time Sep 26, 2016 at 20:07 Type of Consultation: NEPHROLOGY Referring Provider: DRE LOBATO MD 24 HR Interval Summary Free Text/Dictation no acute events, BP stable,a febrile ,+ trach Exam/Review of Systems Vital Signs Vitals Vital Signs Date Time Temp Pulse Resp B/P Pulse Ox O2 Delivery O2 Flow Rate FiO2 11/30/16 15:30 99 24 100 30 11/30/16 14:00 108/77 Mechanical Ventilator 11/30/16 12:00 98.4 Intake and Output 11/29/16 11/29/16 11/30/16 15:00 23:00 07:00 Intake Total 1028.5 ml 1180 ml 1180 ml Output Total 400 ml 675 ml 660 ml Balance 628.5 ml 505 ml 520 ml Exam GENERAL: Chronically ill-appearing, + tracheostomy HEENT: + tracheostomy NECK: Supple. CHEST: Rise symmetrical. Breath sounds diminished. HEART: S1, S2. ABDOMEN: Soft. EXTREMITIES: No cyanosis. Results Result Diagram: 11/29/16 1203 11/30/16 0530 Results 24 hrs Laboratory Tests Test 11/30/16 05:15 11/30/16 05:30 Lab Scanned Report BLOOD TRANSFUSION Sodium Level 136 Potassium Level 3.6 Chloride Level 99 Carbon Dioxide Level 30 Anion Gap 11 Blood Urea Nitrogen 14 Creatinine 0.46 Glucose Level 112 Calcium Level 8.1 L Vancomycin Level Trough 15.0 Medications Medications Current Medications Ondansetron HCl (Zofran Inj) 4 mg Q6 PRN IV NAUSEA AND/OR VOMITING; Start 09/26 at 22:30 Collagenase (Santyl) 1 applic DAILY TOP Last administered on 11/29/16 10:18; Admin Dose 1 APPLIC; Start 09/27/16 at 09:00 Collagenase (Santyl) 1 applic PRN PRN TOP SOILED OR DISLODGED DRESSING; Start 09/27/16 at 05:00 Lansoprazole (Prevacid) 30 mg DAILY@06 GTB Last administered on 11/30/16 05:31 ; Admin Dose 30 MG; Start 09/28/16 at 06:00 Cromolyn Sodium (Nasalcrom) 1 spray QID NASAL Last administered on 11/30/16 13 :48; Admin Dose 1 SPRAY; Start 09/29/16 at 11:02 Phenol (Cepastat Lozenge) 1 lozenge Q2H PRN MT SORE THROAT Last administered on 11/02/16 01:02; Admin Dose 1 LOZENGE; Start 10/01/16 at 19:00 IV Flush (NS 10 ml) 10 ml PRN PRN IV IV PROTOCOL Last administered on 11/17/16 03:20; Admin Dose 10 ML; Start 10/02/16 at 19:00 Hydromorphone HCl (Dilaudid) 0.5 mg Q4H PRN IV PAIN Last administered on 07:51; Admin Dose 0.5 MG; Start 10/06/16 at 18:30 Potassium Chloride 20 meq 20 meq DAILY GTB Last administered on 11/30/16 09:35 ; Admin Dose 20 MEQ; Start 10/30/16 at 12:00 Meropenem (Merrem 500 Mg/ 100 ml (Pmx)) 100 ml @ 200 mls/hr Q8 IVPB Last administered on 11/30/16 13:48; Admin Dose 200 MLS/HR; Start 11/14/16 at 14:00 Acetaminophen (Tylenol Liquid) 650 mg Q6H PRN PEG PAIN AND OR ELEVATED TEMP Last administered on 11/29/16 02:34; Admin Dose 650 MG; Start 11/16/16 at 20:04 Alprazolam (Xanax) 0.5 mg Q12H PRN PEG ANXIETY Last administered on 11/20/16 05 :30; Admin Dose 0.5 MG; Start 11/16/16 at 20:30 Ascorbic Acid (Vitamin C) 500 mg BID PEG Last administered on 11/30/16 09:36; Admin Dose 500 MG; Start 11/16/16 at 21:00 Atorvastatin Calcium (Lipitor) 20 mg QHS PEG Last administered on 11/29/16 21: 05; Admin Dose 20 MG; Start 11/16/16 at 21:00 Diazepam (Valium) 10 mg DAILY PEG Last administered on 11/30/16 09:36; Admin Dose 10 MG; Start 11/17/16 at 09:00 Duloxetine HCl (Cymbalta) 20 mg DAILY PEG Last administered on 11/30/16 09:36 ; Admin Dose 20 MG; Start 11/17/16 at 09:00 Fluconazole (Diflucan) 100 mg DAILY PEG Last administered on 11/30/16 09:36; Admin Dose 100 MG; Start 11/17/16 at 09:00 Lactobacillus Acidophilus (Florajen3 Capsule) 1 each TID PEG Last administered on 11/30/16 13:47; Admin Dose 1 EACH; Start 11/16/16 at 21:00 Metronidazole (Flagyl) 500 mg Q8 PEG Last administered on 11/30/16 13:47; Admin Dose 500 MG; Start 11/16/16 at 22:00 Promethazine HCl/ Codeine (Phenergan/ Codeine) 10 ml BID PRN PEG COUGH Last administered on 11/30/16 09:36; Admin Dose 10 ML; Start 11/16/16 at 20:00 Zolpidem Tartrate (Ambien) 5 mg QHS PRN PEG INSOMNIA; Start 11/16/16 at 20:00 Docusate Sodium (Colace Liquid Cup) 100 mg Q12 PRN GTB CONSTIPATION; Start 11/16 at 20:00 Oxycodone HCl 10 mg 10 mg Q4H PO Last administered on 11/30/16 13:48; Admin Dose 10 MG; Start 11/20/16 at 17:30 Sodium Chloride 1,000 ml @ 50 mls/hr Q20H IV Last administered on 11/29/16 22 :30; Admin Dose 50 MLS/HR; Start 11/23/16 at 04:00 Norepinephrine/ Dextrose (Levophed/D5W) 500 ml @ 1.87 mls/hr TITRATE IV Last administered on 11/29/16 02:21; Admin Dose 7.5 MLS/HR; Start 11/23/16 at 09:00 Midodrine 2.5 mg 2.5 mg TID@08,12,17 NGT Last administered on 11/30/16 13:48; Admin Dose 2.5 MG; Start 11/24/16 at 18:33 Vancomycin HCl (Vancocin) 100 ml @ 100 mls/hr Q12H IVPB Last administered on 05:31; Admin Dose 100 MLS/HR; Start 11/25/16 at 18:00 Furosemide (Lasix) 20 mg DAILY GTB ; Start 12/01/16 at 09:00 DIONNE SAUCEDA MD Nov 30, 2016 16:38
[2016-11-30] MEDS: SOD CHLORIDE 0.9% 1,000 ML IV SCH (17:50)
[2016-11-30] MEDS: ATORVASTATIN 20 MG TAB PEG SCH (21:04)
--- NOTE | 2016-11-30 22:16 | CONS ---
Date/Time of Note Date/Time of Note DATE: 11/30/16 TIME: 22:14 Assessment/Plan Assessment/Plan Chief Complaint/Hosp Course Left lung squamous carcinoma. The patient is not a candidate for chemotherapy. Anemia of chronic disease. post 8 u prbc monitor blood count closely transfuse as needed to keep HB above 8 Acute respiratory insufficiency requiring BiPAP. trach -per daughter's wishes Acute shock, septic versus hypovolemic. tachycardia with episode of SVT. Chronic obstructive pulmonary disease. Dysphagia with G-tube. Continue current G-tube feeding. Hypothyroidism. Continue Synthroid. Problems: Consultation Date/Type/Reason Admit Date/Time Sep 26, 2016 at 20:07 Initial Consult Date 10/19/16 [facility] Consult[facility]: [facility] Referring Provider: DRE LOBATO MD 24 HR Interval Summary Free Text/Dictation ALL NOTED NO NEW EVENTS NO BLEEDING Alert, awake, responsive to name, touch, pain, follows simple commands. sp tracheostomy on 11/28/2016 remains on vent. afebrile, dw staff- no new issues reported. Exam/Review of Systems Vital Signs Vitals Vital Signs Date Time Temp Pulse Resp B/P Pulse Ox O2 Delivery O2 Flow Rate FiO2 11/30/16 20:00 103 18 88/65 98 Mechanical Ventilator 11/30/16 19:10 30 11/30/16 18:00 98.3 Intake and Output 11/29/16 11/29/16 11/30/16 15:00 23:00 07:00 Intake Total 1028.5 ml 1180 ml 1180 ml Output Total 400 ml 675 ml 660 ml Balance 628.5 ml 505 ml 520 ml Exam Constitutional: alert Respiratory: clear to auscultation, normal air movement Cardiovascular: nl pulses, regular rate and rhythm Gastrointestinal: non-tender, other (gt intact), soft Neurological: other (Alert, awake, responsive to name, touch, pain, follows simple commands. ) Skin: other Results Result Diagram: 11/29/16 1203 11/30/16 0530 Results 24 hrs Laboratory Tests Test 11/30/16 05:15 11/30/16 05:30 Lab Scanned Report BLOOD TRANSFUSION Sodium Level 136 Potassium Level 3.6 Chloride Level 99 Carbon Dioxide Level 30 Anion Gap 11 Blood Urea Nitrogen 14 Creatinine 0.46 Glucose Level 112 Calcium Level 8.1 L Vancomycin Level Trough 15.0 Medications Medications Current Medications Ondansetron HCl (Zofran Inj) 4 mg Q6 PRN IV NAUSEA AND/OR VOMITING; Start 09/26 at 22:30 Collagenase (Santyl) 1 applic DAILY TOP Last administered on 11/29/16 10:18; Admin Dose 1 APPLIC; Start 09/27/16 at 09:00 Collagenase (Santyl) 1 applic PRN PRN TOP SOILED OR DISLODGED DRESSING; Start 09/27/16 at 05:00 Lansoprazole (Prevacid) 30 mg DAILY@06 GTB Last administered on 11/30/16 05:31 ; Admin Dose 30 MG; Start 09/28/16 at 06:00 Cromolyn Sodium (Nasalcrom) 1 spray QID NASAL Last administered on 11/30/16 21 :04; Admin Dose 1 SPRAY; Start 09/29/16 at 11:02 Phenol (Cepastat Lozenge) 1 lozenge Q2H PRN MT SORE THROAT Last administered on 11/02/16 01:02; Admin Dose 1 LOZENGE; Start 10/01/16 at 19:00 IV Flush (NS 10 ml) 10 ml PRN PRN IV IV PROTOCOL Last administered on 11/17/16 03:20; Admin Dose 10 ML; Start 10/02/16 at 19:00 Hydromorphone HCl (Dilaudid) 0.5 mg Q4H PRN IV PAIN Last administered on 07:51; Admin Dose 0.5 MG; Start 10/06/16 at 18:30 Potassium Chloride 20 meq 20 meq DAILY GTB Last administered on 11/30/16 09:35 ; Admin Dose 20 MEQ; Start 10/30/16 at 12:00 Meropenem (Merrem 500 Mg/ 100 ml (Pmx)) 100 ml @ 200 mls/hr Q8 IVPB Last administered on 11/30/16 13:48; Admin Dose 200 MLS/HR; Start 11/14/16 at 14:00 Acetaminophen (Tylenol Liquid) 650 mg Q6H PRN PEG PAIN AND OR ELEVATED TEMP Last administered on 11/29/16 02:34; Admin Dose 650 MG; Start 11/16/16 at 20:04 Alprazolam (Xanax) 0.5 mg Q12H PRN PEG ANXIETY Last administered on 11/20/16 05 :30; Admin Dose 0.5 MG; Start 11/16/16 at 20:30 Ascorbic Acid (Vitamin C) 500 mg BID PEG Last administered on 11/30/16 21:04; Admin Dose 500 MG; Start 11/16/16 at 21:00 Atorvastatin Calcium (Lipitor) 20 mg QHS PEG Last administered on 11/30/16 21: 04; Admin Dose 20 MG; Start 11/16/16 at 21:00 Diazepam (Valium) 10 mg DAILY PEG Last administered on 11/30/16 09:36; Admin Dose 10 MG; Start 11/17/16 at 09:00 Duloxetine HCl (Cymbalta) 20 mg DAILY PEG Last administered on 11/30/16 09:36 ; Admin Dose 20 MG; Start 11/17/16 at 09:00 Fluconazole (Diflucan) 100 mg DAILY PEG Last administered on 11/30/16 09:36; Admin Dose 100 MG; Start 11/17/16 at 09:00 Lactobacillus Acidophilus (Florajen3 Capsule) 1 each TID PEG Last administered on 11/30/16 13:47; Admin Dose 1 EACH; Start 11/16/16 at 21:00 Metronidazole (Flagyl) 500 mg Q8 PEG Last administered on 11/30/16 13:47; Admin Dose 500 MG; Start 11/16/16 at 22:00 Promethazine HCl/ Codeine (Phenergan/ Codeine) 10 ml BID PRN PEG COUGH Last administered on 11/30/16 09:36; Admin Dose 10 ML; Start 11/16/16 at 20:00 Zolpidem Tartrate (Ambien) 5 mg QHS PRN PEG INSOMNIA; Start 11/16/16 at 20:00 Docusate Sodium (Colace Liquid Cup) 100 mg Q12 PRN GTB CONSTIPATION; Start 11/16 at 20:00 Oxycodone HCl 10 mg 10 mg Q4H PO Last administered on 11/30/16 21:04; Admin Dose 10 MG; Start 11/20/16 at 17:30 Sodium Chloride 1,000 ml @ 50 mls/hr Q20H IV Last administered on 11/30/16 17 :50; Admin Dose 50 MLS/HR; Start 6/8/17 at 04:00 Norepinephrine/ Dextrose (Levophed/D5W) 500 ml @ 1.87 mls/hr TITRATE IV Last administered on 11/29/16 02:21; Admin Dose 7.5 MLS/HR; Start 11/23/16 at 09:00 Midodrine 2.5 mg 2.5 mg TID@08,12,17 NGT Last administered on 11/30/16 17:48; Admin Dose 2.5 MG; Start 11/24/16 at 18:33 Vancomycin HCl (Vancocin) 100 ml @ 100 mls/hr Q12H IVPB Last administered on 17:48; Admin Dose 100 MLS/HR; Start 11/25/16 at 18:00 Furosemide (Lasix) 20 mg DAILY GTB ; Start 12/01/16 at 09:00 DYLLAN CARRION MD Nov 30, 2016 22:16
[2016-12-01] VITALS (25 sets, daily range): BP systolic 86–113; BP diastolic 58–73; PULSE 90–132; RESP 18–26
[2016-12-01] MEDS: oxyCODONE 5 MG TAB PO SCH ×6 (01:30→22:20)
[2016-12-01] MEDS: SOD CHLORIDE 0.9% 1,000 ML IV SCH (05:10)
[2016-12-01] MEDS: MEROPENEM 500 MG/100 ML (PMX) 100 ML IVPB SCH ×3 (05:28→22:19)
[2016-12-01] MEDS: metroNIDAZOLE 500 MG TAB PEG SCH ×3 (05:28→22:20)
[2016-12-01] MEDS: LANSOPRAZOLE 30 MG CAP GTB SCH (05:28)
[2016-12-01] MEDS: VANCOMYCIN 500MG/NS (PMX) 100 ML IVPB SCH ×2 (05:30→18:30)
[2016-12-01 05:47] LABS: ADD SCAN DIFF NO
[2016-12-01 06:12] LABS: ABNORMAL IP MESSAGE 1; BASOPHIL # 0.1 10^3/ul (0.0-0.1); BASOPHILS % 0.5 % (0.0-2.0); EOSINOPHILS # 0.5 10^3/ul (0.0-0.5); EOSINOPHILS % 2.9 % (0.0-7.0); HEMATOCRIT 28.8 % (37.0-47.0); LYMPHOCYTES # 1.6 10^3/ul (0.8-2.9); LYMPHOCYTES % 9.7 % (15.0-51.0); MEAN CORPUSCULAR HEMOGLOBIN 27.1 pg (29.0-33.0); MEAN CORPUSCULAR HGB CONC 31.3 g/dl (32.0-37.0); MEAN CORPUSCULAR VOLUME 86.7 fl (82.0-101.0); MEAN PLATELET VOLUME 9.1 fl (7.4-10.4); MONOCYTE # 1.5 10^3/ul (0.3-0.9); MONOCYTES % 9.1 % (0.0-11.0); NEUTROPHIL # 12.8 10^3/ul (1.6-7.5); PLATELET COUNT 357 10^3/UL (140-415); RED BLOOD COUNT 3.32 10^6/ul (4.20-5.40); RED CELL DISTRIBUTION WIDTH 16.9 % (11.5-14.5); WHITE BLOOD COUNT 16.7 10^3/ul (4.8-10.8)
[2016-12-01] MEDS: LEVOTHYROXINE 125 MCG TAB PEG SCH (06:24)
[2016-12-01 08:20] LABS: ALBUMIN 2.4 g/dl (3.3-4.9); ALBUMIN/GLOBULIN RATIO 0.57; CALCIUM 8.1 mg/dl (8.4-10.2); CREATININE 0.4 mg/dl (0.44-1.00); POTASSIUM 4.2 mmol/L (3.5-5.1); TOTAL PROTEIN 6.6 g/dl (6.1-8.1)
[2016-12-01] MEDS: FUROSEMIDE 20 MG TAB GTB SCH (09:02)
[2016-12-01] MEDS: FLUCONAZOLE 100 MG TAB PEG SCH (09:02)
[2016-12-01] MEDS: L ACIDOPHIL/B LACTIS/B LONGUM CAPSULE PEG SCH ×3 (09:02→22:19)
[2016-12-01] MEDS: ASCORBIC ACID 500 MG TAB PEG SCH ×2 (09:02→22:19)
[2016-12-01] MEDS: MIDODRINE 2.5 MG TAB NGT SCH ×3 (09:02→18:30)
[2016-12-01] MEDS: POTASSIUM CHLORIDE 20 MEQ POWDER FOR ORAL SOLN GTB SCH (09:03)
[2016-12-01] MEDS: CROMOLYN 4% 26ML NAS INH NASAL SCH ×4 (09:03→22:19)
[2016-12-01] MEDS: DULOXETINE 20 MG CAP DR PEG SCH (09:10)
[2016-12-01] MEDS: COLLAGENASE 30 GM TUBE TOP SCH (09:11)
[2016-12-01] MEDS: DIAZEPAM 5 MG TAB PEG SCH (09:11)
--- NOTE | 2016-12-01 10:33 | RADRPT ---
PROCEDURE: XR Chest 1 view. CLINICAL INDICATION: Shortness of breath. TECHNIQUE: AP views of the chest were obtained. COMPARISON: November 27, 2016 FINDINGS: The heart is large. Calcified atherosclerosis is noted in the aorta. Left lower lobe and lingular c onsolidation, possibly combined small pleural effusion is unchanged. Diffuse interstitial prominenc e in both lungs appears stable. Patchy atelectasis versus mild infiltrates are seen in the right lo wer lobe. Endotracheal tube has been replaced by a tracheostomy tube. Tracheostomy tube appears in appropriate location. The osseous structures are osteopenic, but appear grossly intact. Degenerat richard changes are seen in the shoulders. Right-sided PICC line is stable. IMPRESSION: Cardiomegaly with calcified atherosclerosis in the aorta. Interval replacement of an endotracheal tube with a tracheostomy tube. Tracheostomy tube appears in appropriate location. Stable left lower lobe and lingular consolidation, possibly combined with small pleural effusion. Stable patchy atelectasis versus infiltrates in the right lower lobe. Stable diffuse interstitial prominence in both lungs. RPTAT: AA .Mariusz Vo MD, Date Time Electronically viewed and signed by .Mariusz Vo MD, on 12/01/2016 10:33 .P/
[2016-12-01] MEDS ORDERED: MAGNESIUM SULFATE 2 GM/50 ML 50 ML IVPB ONE (11:30)
--- NOTE | 2016-12-01 12:57 | CONS ---
Date/Time of Note Date/Time of Note DATE: 12/01/16 TIME: 12:55 Assessment/Plan Assessment/Plan Additional Assessment/Plan Ventilator setting; AC of 18, tidal volume 450, PEEP of 5, 30% FiO2. Assessment recommendations; 1. Patient admitted for severe sepsis from sacral decubitus wound. 2. Underlying COPD. 3. Status post CPR with resulting anoxic brain injury. 4. Status post tracheostomy and G-tube present. 5. Lung cancer. Continue current supportive care. Prognosis is poor. Consultation Date/Type/Reason Admit Date/Time Sep 26, 2016 at 20:07 Initial Consult Date 11/14/16 Type of Consultation: Pulmonary/critical care Referring Provider: DRE LOBATO MD 24 HR Interval Summary Free Text/Dictation Patient condition remains stable. Has remained hemodynamically stable. Remains unresponsive due to anoxic brain injury. Status post CPR. General exam; elderly woman, on ventilator via tracheostomy currently in no distress, unresponsive. Exam/Review of Systems Vital Signs Vitals Vital Signs Date Time Temp Pulse Resp B/P Pulse Ox O2 Delivery O2 Flow Rate FiO2 12/01/16 12:53 130 12/01/16 11:31 24 99 30 12/01/16 11:12 99.0 109/73 11/30/16 20:00 Mechanical Ventilator Intake and Output 11/30/16 11/30/16 12/01/16 15:00 23:00 07:00 Intake Total 1155 ml 480 ml 700 ml Output Total 700 ml 300 ml 1320 ml Balance 455 ml 180 ml -620 ml Exam HEENT examination; supple neck, no JVD. No lymphadenopathy. Midline trachea. No thyromegaly. Tracheostomy placed with clean insertion site. Patient has a multiple carious teeth. Pupils are small bilaterally. Chest examination; diminished but clear breath sound. S1-S2 audible, no murmurs. Regular rhythm. Abdomen examination; soft, G-tube in place. Nondistended. Bowel sounds audible. Back examination reveals dressing applied over sacrum. Extremity examination; no peripheral edema. [employer] examination; patient remains unresponsive. Results Result Diagram: 12/01/16 0540 12/01/16 0500 Results 24 hrs Laboratory Tests Test 12/01/16 05:00 12/01/16 05:40 Sodium Level 136 Potassium Level 4.2 Chloride Level 102 Carbon Dioxide Level 28 Anion Gap 10 Blood Urea Nitrogen 15 Creatinine 0.40 L Glucose Level 105 Calcium Level 8.1 L Magnesium Level 1.4 L Total Bilirubin 0.0 L Direct Bilirubin 0.00 Indirect Bilirubin 0.0 Aspartate Amino Transf (AST/SGOT) 26 Alanine Aminotransferase (ALT/SGPT) 19 Alkaline Phosphatase 154 H Total Protein 6.6 Albumin 2.4 L Globulin 4.20 H Albumin/Globulin Ratio 0.57 White Blood Count 16.7 H Red Blood Count 3.32 L Hemoglobin 9.0 L Hematocrit 28.8 L Mean Corpuscular Volume 86.7 Mean Corpuscular Hemoglobin 27.1 L Mean Corpuscular Hemoglobin Concent 31.3 L Red Cell Distribution Width 16.9 H Platelet Count 357 Mean Platelet Volume 9.1 Neutrophils % 77.0 Lymphocytes % 9.7 L Monocytes % 9.1 Eosinophils % 2.9 Basophils % 0.5 Nucleated Red Blood Cells % 0.0 Neutrophils # 12.8 H Lymphocytes # 1.6 Monocytes # 1.5 H Eosinophils # 0.5 Basophils # 0.1 Nucleated Red Blood Cells # 0.0 Medications Medications Current Medications Ondansetron HCl (Zofran Inj) 4 mg Q6 PRN IV NAUSEA AND/OR VOMITING; Start 09/26 at 22:30 Collagenase (Santyl) 1 applic DAILY TOP Last administered on 12/01/16 09:11; Admin Dose 1 APPLIC; Start 09/27/16 at 09:00 Collagenase (Santyl) 1 applic PRN PRN TOP SOILED OR DISLODGED DRESSING; Start 09/27/16 at 05:00 Lansoprazole (Prevacid) 30 mg DAILY@06 GTB Last administered on 12/01/16 05:28 ; Admin Dose 30 MG; Start 09/28/16 at 06:00 Cromolyn Sodium (Nasalcrom) 1 spray QID NASAL Last administered on 12/01/16 12 :07; Admin Dose 1 SPRAY; Start 09/29/16 at 11:02 Phenol (Cepastat Lozenge) 1 lozenge Q2H PRN MT SORE THROAT Last administered on 11/02/16 01:02; Admin Dose 1 LOZENGE; Start 10/01/16 at 19:00 IV Flush (NS 10 ml) 10 ml PRN PRN IV IV PROTOCOL Last administered on 11/17/16 03:20; Admin Dose 10 ML; Start 10/02/16 at 19:00 Hydromorphone HCl (Dilaudid) 0.5 mg Q4H PRN IV PAIN Last administered on 22:31; Admin Dose 0.5 MG; Start 10/06/16 at 18:30 Potassium Chloride 20 meq 20 meq DAILY GTB Last administered on 12/01/16 09:03 ; Admin Dose 20 MEQ; Start 10/30/16 at 12:00 Meropenem (Merrem 500 Mg/ 100 ml (Pmx)) 100 ml @ 200 mls/hr Q8 IVPB Last administered on 12/01/16 05:28; Admin Dose 200 MLS/HR; Start 11/14/16 at 14:00 Acetaminophen (Tylenol Liquid) 650 mg Q6H PRN PEG PAIN AND OR ELEVATED TEMP Last administered on 11/29/16 02:34; Admin Dose 650 MG; Start 11/16/16 at 20:04 Alprazolam (Xanax) 0.5 mg Q12H PRN PEG ANXIETY Last administered on 11/20/16 05 :30; Admin Dose 0.5 MG; Start 11/16/16 at 20:30 Ascorbic Acid (Vitamin C) 500 mg BID PEG Last administered on 12/01/16 09:02; Admin Dose 500 MG; Start 11/16/16 at 21:00 Atorvastatin Calcium (Lipitor) 20 mg QHS PEG Last administered on 11/30/16 21: 04; Admin Dose 20 MG; Start 11/16/16 at 21:00 Diazepam (Valium) 10 mg DAILY PEG Last administered on 12/01/16 09:11; Admin Dose 10 MG; Start 11/17/16 at 09:00 Duloxetine HCl (Cymbalta) 20 mg DAILY PEG Last administered on 12/01/16 09:10 ; Admin Dose 20 MG; Start 11/17/16 at 09:00 Fluconazole (Diflucan) 100 mg DAILY PEG Last administered on 12/01/16 09:02; Admin Dose 100 MG; Start 11/17/16 at 09:00 Lactobacillus Acidophilus (Florajen3 Capsule) 1 each TID PEG Last administered on 12/01/16 12:06; Admin Dose 1 EACH; Start 11/16/16 at 21:00 Metronidazole (Flagyl) 500 mg Q8 PEG Last administered on 12/01/16 05:28; Admin Dose 500 MG; Start 11/16/16 at 22:00 Promethazine HCl/ Codeine (Phenergan/ Codeine) 10 ml BID PRN PEG COUGH Last administered on 11/30/16 09:36; Admin Dose 10 ML; Start 11/16/16 at 20:00 Zolpidem Tartrate (Ambien) 5 mg QHS PRN PEG INSOMNIA; Start 11/16/16 at 20:00 Docusate Sodium (Colace Liquid Cup) 100 mg Q12 PRN GTB CONSTIPATION; Start 11/16 at 20:00 Oxycodone HCl 10 mg 10 mg Q4H PO Last administered on 12/01/16 09:11; Admin Dose 10 MG; Start 11/20/16 at 17:30 Sodium Chloride 1,000 ml @ 50 mls/hr Q20H IV Last administered on 12/01/16 05 :10; Admin Dose 50 MLS/HR; Start 11/23/16 at 04:00 Norepinephrine/ Dextrose (Levophed/D5W) 500 ml @ 1.87 mls/hr TITRATE IV Last administered on 11/29/16 02:21; Admin Dose 7.5 MLS/HR; Start 11/23/16 at 09:00 Midodrine 2.5 mg 2.5 mg TID@08,12,17 NGT Last administered on 12/01/16 12:07; Admin Dose 2.5 MG; Start 11/24/16 at 18:33 Vancomycin HCl (Vancocin) 100 ml @ 100 mls/hr Q12H IVPB Last administered on 05:30; Admin Dose 100 MLS/HR; Start 11/25/16 at 18:00 Furosemide 20 mg 20 mg DAILY GTB Last administered on 12/01/16 09:02; Admin Dose 20 MG; Start 12/01/16 at 09:00 Magnesium Sulfate (Magnesium Sulfate 2 Gm/50 ml) 50 ml @ 25 mls/hr ONCE ONCE IVPB Last administered on 12/01/16 12:06; Admin Dose 25 MLS/HR; Start at 11:30; Stop 12/01/16 at 13:29 REGINE BUCKLEY 16, 2017 12:57
--- NOTE | 2016-12-01 13:46 | CONS ---
Date/Time of Note Date/Time of Note DATE: 12/01/16 TIME: 13:45 Assessment/Plan Assessment/Plan Additional Assessment/Plan Sepsis Respiratory failure Cardiopulmonary Arrest Hypotension, improved Acute decompensated diastolic congestive heart failure Pulmonary hypertension Preserved ejection fraction Tricuspid valve regurgitation Lung cancer SVT -Continue maintenance diuretics as blood pressure and renal function permits. Maintain potassium above 4.0 and magnesium above 2.0. Magnesium has already been ordered by primary team. Consultation Date/Type/Reason Admit Date/Time Sep 26, 2016 at 20:07 Type of Consultation: cv Referring Provider: DRE LOBATO MD 24 HR Interval Summary Free Text/Dictation Patient seen and examined. Transfered to telemetry Exam/Review of Systems Vital Signs Vitals Vital Signs Date Time Temp Pulse Resp B/P Pulse Ox O2 Delivery O2 Flow Rate FiO2 12/01/16 12:53 130 12/01/16 11:31 24 99 30 12/01/16 11:12 99.0 109/73 11/30/16 20:00 Mechanical Ventilator Intake and Output 11/30/16 11/30/16 12/01/16 15:00 23:00 07:00 Intake Total 1155 ml 480 ml 700 ml Output Total 700 ml 300 ml 1320 ml Balance 455 ml 180 ml -620 ml Exam Sleeping but arousable, follows commands, no apparent distress Head: normocephalic Neck: other (Tracheostomy) Respiratory: other (Coarse breath sounds bilaterally, no wheezing) Cardiovascular: other (S1-S2 heard), regular rate and rhythm Gastrointestinal: bowel sounds, non-tender, soft Extremities: edema (Trace) Results Result Diagram: 12/01/16 0540 12/01/16 0500 Results 24 hrs Laboratory Tests Test 12/01/16 05:00 12/01/16 05:40 Sodium Level 136 Potassium Level 4.2 Chloride Level 102 Carbon Dioxide Level 28 Anion Gap 10 Blood Urea Nitrogen 15 Creatinine 0.40 L Glucose Level 105 Calcium Level 8.1 L Magnesium Level 1.4 L Total Bilirubin 0.0 L Direct Bilirubin 0.00 Indirect Bilirubin 0.0 Aspartate Amino Transf (AST/SGOT) 26 Alanine Aminotransferase (ALT/SGPT) 19 Alkaline Phosphatase 154 H Total Protein 6.6 Albumin 2.4 L Globulin 4.20 H Albumin/Globulin Ratio 0.57 White Blood Count 16.7 H Red Blood Count 3.32 L Hemoglobin 9.0 L Hematocrit 28.8 L Mean Corpuscular Volume 86.7 Mean Corpuscular Hemoglobin 27.1 L Mean Corpuscular Hemoglobin Concent 31.3 L Red Cell Distribution Width 16.9 H Platelet Count 357 Mean Platelet Volume 9.1 Neutrophils % 77.0 Lymphocytes % 9.7 L Monocytes % 9.1 Eosinophils % 2.9 Basophils % 0.5 Nucleated Red Blood Cells % 0.0 Neutrophils # 12.8 H Lymphocytes # 1.6 Monocytes # 1.5 H Eosinophils # 0.5 Basophils # 0.1 Nucleated Red Blood Cells # 0.0 Medications Medications Current Medications Ondansetron HCl (Zofran Inj) 4 mg Q6 PRN IV NAUSEA AND/OR VOMITING; Start 09/26 at 22:30 Collagenase (Santyl) 1 applic DAILY TOP Last administered on 12/01/16 09:11; Admin Dose 1 APPLIC; Start 09/27/16 at 09:00 Collagenase (Santyl) 1 applic PRN PRN TOP SOILED OR DISLODGED DRESSING; Start 09/27/16 at 05:00 Lansoprazole (Prevacid) 30 mg DAILY@06 GTB Last administered on 12/01/16 05:28 ; Admin Dose 30 MG; Start 09/28/16 at 06:00 Cromolyn Sodium (Nasalcrom) 1 spray QID NASAL Last administered on 12/01/16 12 :07; Admin Dose 1 SPRAY; Start 09/29/16 at 11:02 Phenol (Cepastat Lozenge) 1 lozenge Q2H PRN MT SORE THROAT Last administered on 11/02/16 01:02; Admin Dose 1 LOZENGE; Start 10/01/16 at 19:00 IV Flush (NS 10 ml) 10 ml PRN PRN IV IV PROTOCOL Last administered on 11/17/16 03:20; Admin Dose 10 ML; Start 10/02/16 at 19:00 Hydromorphone HCl (Dilaudid) 0.5 mg Q4H PRN IV PAIN Last administered on 22:31; Admin Dose 0.5 MG; Start 10/06/16 at 18:30 Potassium Chloride 20 meq 20 meq DAILY GTB Last administered on 12/01/16 09:03 ; Admin Dose 20 MEQ; Start 10/30/16 at 12:00 Meropenem (Merrem 500 Mg/ 100 ml (Pmx)) 100 ml @ 200 mls/hr Q8 IVPB Last administered on 12/01/16 13:21; Admin Dose 200 MLS/HR; Start 11/14/16 at 14:00 Acetaminophen (Tylenol Liquid) 650 mg Q6H PRN PEG PAIN AND OR ELEVATED TEMP Last administered on 11/29/16 02:34; Admin Dose 650 MG; Start 11/16/16 at 20:04 Alprazolam (Xanax) 0.5 mg Q12H PRN PEG ANXIETY Last administered on 11/20/16 05 :30; Admin Dose 0.5 MG; Start 11/16/16 at 20:30 Ascorbic Acid (Vitamin C) 500 mg BID PEG Last administered on 12/01/16 09:02; Admin Dose 500 MG; Start 11/16/16 at 21:00 Atorvastatin Calcium (Lipitor) 20 mg QHS PEG Last administered on 11/30/16 21: 04; Admin Dose 20 MG; Start 11/16/16 at 21:00 Diazepam (Valium) 10 mg DAILY PEG Last administered on 12/01/16 09:11; Admin Dose 10 MG; Start 11/17/16 at 09:00 Duloxetine HCl (Cymbalta) 20 mg DAILY PEG Last administered on 12/01/16 09:10 ; Admin Dose 20 MG; Start 11/17/16 at 09:00 Fluconazole (Diflucan) 100 mg DAILY PEG Last administered on 12/01/16 09:02; Admin Dose 100 MG; Start 11/17/16 at 09:00 Lactobacillus Acidophilus (Florajen3 Capsule) 1 each TID PEG Last administered on 12/01/16 12:06; Admin Dose 1 EACH; Start 11/16/16 at 21:00 Metronidazole (Flagyl) 500 mg Q8 PEG Last administered on 12/01/16 13:21; Admin Dose 500 MG; Start 11/16/16 at 22:00 Promethazine HCl/ Codeine (Phenergan/ Codeine) 10 ml BID PRN PEG COUGH Last administered on 11/30/16 09:36; Admin Dose 10 ML; Start 11/16/16 at 20:00 Zolpidem Tartrate (Ambien) 5 mg QHS PRN PEG INSOMNIA; Start 11/16/16 at 20:00 Docusate Sodium (Colace Liquid Cup) 100 mg Q12 PRN GTB CONSTIPATION; Start 11/16 at 20:00 Oxycodone HCl 10 mg 10 mg Q4H PO Last administered on 12/01/16 13:21; Admin Dose 10 MG; Start 11/20/16 at 17:30 Sodium Chloride 1,000 ml @ 50 mls/hr Q20H IV Last administered on 12/01/16 05 :10; Admin Dose 50 MLS/HR; Start 11/23/16 at 04:00 Norepinephrine/ Dextrose (Levophed/D5W) 500 ml @ 1.87 mls/hr TITRATE IV Last administered on 11/29/16 02:21; Admin Dose 7.5 MLS/HR; Start 11/23/16 at 09:00 Midodrine 2.5 mg 2.5 mg TID@08,12,17 NGT Last administered on 12/01/16 12:07; Admin Dose 2.5 MG; Start 11/24/16 at 18:33 Vancomycin HCl (Vancocin) 100 ml @ 100 mls/hr Q12H IVPB Last administered on 05:30; Admin Dose 100 MLS/HR; Start 11/25/16 at 18:00 Furosemide (Lasix) 20 mg DAILY GTB Last administered on 12/01/16 09:02; Admin Dose 20 MG; Start 12/01/16 at 09:00 Artemio Tipton DO Dec 01, 2016 13:46
--- NOTE | 2016-12-01 15:00 | PN ---
Date/Time of Note Date/Time of Note DATE: 12/01/16 TIME: 14:56 Assessment/Plan VTE Prophylaxis VTE Prophylaxis Intervention: SCD's Lines/Catheters IV C[facility]ter Type ([facility] PICC Line Central line still needed: Yes Urinary Cath still in place: Yes Reason Cath still needed: urinary retention Assessment/Plan Chief Complaint/Hosp Course Patient remains hemodynamically stable, no bleeding from tracheostomy site, slightly tachycardic, no fever. ASSESSMENT AND PLAN: - Hypomagnesemia, magnesium replaced. - Status post tracheostomy by Dr. White, ENT on 11/28. - Status post cardiopulmonary arrest. - Septic shock, resolving. Dr. Coleman is following in infectious disease consultation. Continue antibiotics per ID. - Acute respiratory failure. Continue breathing treatment, oxygen supply supplementation and bronchodilators. Dr. Lopez is following in pulmonology consultation. - Left lung squamous carcinoma. The patient is not a candidate for chemotherapy. Dr. Calvo is following in oncology consultation. - Chronic obstructive pulmonary disease. Patient with long history of tobacco use. - Anemia of chronic disease. Continue to monitor hemoglobin and hematocrit. - Dysphagia with G-tube. Continue G-tube feeding, monitor residual. Continue aspiration precautions. - Hypothyroidism. Continue Synthroid. - Chronic pain. - Failure to thrive. Continue sequential compression device for deep venous thrombosis prophylaxis and Prevacid for peptic ulcer disease prophylaxis. Further recommendations based on clinical course. Plan of care discussed with Dr. Dozier. Problems: Exam/Review of Systems Vital Signs Vitals Vital Signs Date Time Temp Pulse Resp B/P Pulse Ox O2 Delivery O2 Flow Rate FiO2 12/01/16 13:23 95 22 98 30 12/01/16 11:12 99.0 109/73 11/30/16 20:00 Mechanical Ventilator Intake and Output 11/30/16 11/30/16 12/01/16 15:00 23:00 07:00 Intake Total 1155 ml 480 ml 700 ml Output Total 700 ml 300 ml 1320 ml Balance 455 ml 180 ml -620 ml Exam Constitutional: frail Head: normocephalic ENMT: other (tracheostomy) Respiratory: diminished breath sounds Cardiovascular: nl pulses Gastrointestinal: non-tender, other (G-tube), soft Extremities: normal pulses Skin: other (Multiple wounds) Results Result Diagram: 12/01/16 0540 6/16/17 0500 Results 24 hrs Laboratory Tests Test 12/01/16 05:00 12/01/16 05:40 Sodium Level 136 Potassium Level 4.2 Chloride Level 102 Carbon Dioxide Level 28 Anion Gap 10 Blood Urea Nitrogen 15 Creatinine 0.40 L Glucose Level 105 Calcium Level 8.1 L Magnesium Level 1.4 L Total Bilirubin 0.0 L Direct Bilirubin 0.00 Indirect Bilirubin 0.0 Aspartate Amino Transf (AST/SGOT) 26 Alanine Aminotransferase (ALT/SGPT) 19 Alkaline Phosphatase 154 H Total Protein 6.6 Albumin 2.4 L Globulin 4.20 H Albumin/Globulin Ratio 0.57 White Blood Count 16.7 H Red Blood Count 3.32 L Hemoglobin 9.0 L Hematocrit 28.8 L Mean Corpuscular Volume 86.7 Mean Corpuscular Hemoglobin 27.1 L Mean Corpuscular Hemoglobin Concent 31.3 L Red Cell Distribution Width 16.9 H Platelet Count 357 Mean Platelet Volume 9.1 Neutrophils % 77.0 Lymphocytes % 9.7 L Monocytes % 9.1 Eosinophils % 2.9 Basophils % 0.5 Nucleated Red Blood Cells % 0.0 Neutrophils # 12.8 H Lymphocytes # 1.6 Monocytes # 1.5 H Eosinophils # 0.5 Basophils # 0.1 Nucleated Red Blood Cells # 0.0 Medications Medications Current Medications Ondansetron HCl (Zofran Inj) 4 mg Q6 PRN IV NAUSEA AND/OR VOMITING; Start 09/26 at 22:30 Collagenase (Santyl) 1 applic DAILY TOP Last administered on 12/01/16 09:11; Admin Dose 1 APPLIC; Start 09/27/16 at 09:00 Collagenase (Santyl) 1 applic PRN PRN TOP SOILED OR DISLODGED DRESSING; Start 09/27/16 at 05:00 Lansoprazole (Prevacid) 30 mg DAILY@06 GTB Last administered on 12/01/16 05:28 ; Admin Dose 30 MG; Start 09/28/16 at 06:00 Cromolyn Sodium (Nasalcrom) 1 spray QID NASAL Last administered on 12/01/16 12 :07; Admin Dose 1 SPRAY; Start 09/29/16 at 11:02 Phenol (Cepastat Lozenge) 1 lozenge Q2H PRN MT SORE THROAT Last administered on 11/02/16 01:02; Admin Dose 1 LOZENGE; Start 10/01/16 at 19:00 IV Flush (NS 10 ml) 10 ml PRN PRN IV IV PROTOCOL Last administered on 11/17/16 03:20; Admin Dose 10 ML; Start 10/02/16 at 19:00 Hydromorphone HCl (Dilaudid) 0.5 mg Q4H PRN IV PAIN Last administered on 22:31; Admin Dose 0.5 MG; Start 10/06/16 at 18:30 Potassium Chloride 20 meq 20 meq DAILY GTB Last administered on 12/01/16 09:03 ; Admin Dose 20 MEQ; Start 10/30/16 at 12:00 Meropenem (Merrem 500 Mg/ 100 ml (Pmx)) 100 ml @ 200 mls/hr Q8 IVPB Last administered on 12/01/16 13:21; Admin Dose 200 MLS/HR; Start 11/14/16 at 14:00 Acetaminophen (Tylenol Liquid) 650 mg Q6H PRN PEG PAIN AND OR ELEVATED TEMP Last administered on 11/29/16 02:34; Admin Dose 650 MG; Start 11/16/16 at 20:04 Alprazolam (Xanax) 0.5 mg Q12H PRN PEG ANXIETY Last administered on 11/20/16 05 :30; Admin Dose 0.5 MG; Start 11/16/16 at 20:30 Ascorbic Acid (Vitamin C) 500 mg BID PEG Last administered on 12/01/16 09:02; Admin Dose 500 MG; Start 11/16/16 at 21:00 Atorvastatin Calcium (Lipitor) 20 mg QHS PEG Last administered on 11/30/16 21: 04; Admin Dose 20 MG; Start 11/16/16 at 21:00 Diazepam (Valium) 10 mg DAILY PEG Last administered on 12/01/16 09:11; Admin Dose 10 MG; Start 11/17/16 at 09:00 Duloxetine HCl (Cymbalta) 20 mg DAILY PEG Last administered on 12/01/16 09:10 ; Admin Dose 20 MG; Start 11/17/16 at 09:00 Fluconazole (Diflucan) 100 mg DAILY PEG Last administered on 12/01/16 09:02; Admin Dose 100 MG; Start 11/17/16 at 09:00 Lactobacillus Acidophilus (Florajen3 Capsule) 1 each TID PEG Last administered on 12/01/16 12:06; Admin Dose 1 EACH; Start 11/16/16 at 21:00 Metronidazole (Flagyl) 500 mg Q8 PEG Last administered on 12/01/16 13:21; Admin Dose 500 MG; Start 11/16/16 at 22:00 Promethazine HCl/ Codeine (Phenergan/ Codeine) 10 ml BID PRN PEG COUGH Last administered on 11/30/16 09:36; Admin Dose 10 ML; Start 11/16/16 at 20:00 Zolpidem Tartrate (Ambien) 5 mg QHS PRN PEG INSOMNIA; Start 11/16/16 at 20:00 Docusate Sodium (Colace Liquid Cup) 100 mg Q12 PRN GTB CONSTIPATION; Start 11/16 at 20:00 Oxycodone HCl 10 mg 10 mg Q4H PO Last administered on 12/01/16 13:21; Admin Dose 10 MG; Start 11/20/16 at 17:30 Sodium Chloride 1,000 ml @ 50 mls/hr Q20H IV Last administered on 12/01/16 05 :10; Admin Dose 50 MLS/HR; Start 11/23/16 at 04:00 Norepinephrine/ Dextrose (Levophed/D5W) 500 ml @ 1.87 mls/hr TITRATE IV Last administered on 11/29/16 02:21; Admin Dose 7.5 MLS/HR; Start 11/23/16 at 09:00 Midodrine 2.5 mg 2.5 mg TID@08,12,17 NGT Last administered on 12/01/16 12:07; Admin Dose 2.5 MG; Start 11/24/16 at 18:33 Vancomycin HCl (Vancocin) 100 ml @ 100 mls/hr Q12H IVPB Last administered on 05:30; Admin Dose 100 MLS/HR; Start 11/25/16 at 18:00 Furosemide (Lasix) 20 mg DAILY GTB Last administered on 12/01/16 09:02; Admin Dose 20 MG; Start 12/01/16 at 09:00 REBECCA ISLAS Dec 01, 2016 15:00
--- NOTE | 2016-12-01 19:52 | CONS ---
Date/Time of Note Date/Time of Note DATE: 12/01/16 TIME: 19:51 Assessment/Plan Assessment/Plan Additional Assessment/Plan 1. acute on chronic resp failure intubated on ventilator- not able to wean off s/p Tracheostomy 2. PEA s/p resuscitation 3. Hyponatremia multifactorial 4. Pneumonia. 3. Lung cancer. 4. History of Clostridium difficile colitis and recurrent urinary tract infection. 5. Unstageable sacral wound, status post debridement with wound VAC application. PLAN: conitnue IV abx, ID following, S/p Tracheostomy making good urine Electrolytes stable afebrile, BP stable will follow up Low Mag- already replaced today Consultation Date/Type/Reason Admit Date/Time Sep 26, 2016 at 20:07 Type of Consultation: NEPHROLOGY Referring Provider: DRE LOBATO MD 24 HR Interval Summary Free Text/Dictation remained stable on Tele floor, s/p tracheostomy Exam/Review of Systems Vital Signs Vitals Vital Signs Date Time Temp Pulse Resp B/P Pulse Ox O2 Delivery O2 Flow Rate FiO2 12/01/16 19:44 95 21 98 30 12/01/16 15:17 98.3 100/67 11/30/16 20:00 Mechanical Ventilator Intake and Output 11/30/16 11/30/16 12/01/16 15:00 23:00 07:00 Intake Total 1155 ml 480 ml 700 ml Output Total 700 ml 300 ml 1320 ml Balance 455 ml 180 ml -620 ml Results Result Diagram: 12/01/16 0540 12/01/16 0500 Results 24 hrs Laboratory Tests Test 12/01/16 05:00 12/01/16 05:40 Sodium Level 136 Potassium Level 4.2 Chloride Level 102 Carbon Dioxide Level 28 Anion Gap 10 Blood Urea Nitrogen 15 Creatinine 0.40 L Glucose Level 105 Calcium Level 8.1 L Magnesium Level 1.4 L Total Bilirubin 0.0 L Direct Bilirubin 0.00 Indirect Bilirubin 0.0 Aspartate Amino Transf (AST/SGOT) 26 Alanine Aminotransferase (ALT/SGPT) 19 Alkaline Phosphatase 154 H Total Protein 6.6 Albumin 2.4 L Globulin 4.20 H Albumin/Globulin Ratio 0.57 White Blood Count 16.7 H Red Blood Count 3.32 L Hemoglobin 9.0 L Hematocrit 28.8 L Mean Corpuscular Volume 86.7 Mean Corpuscular Hemoglobin 27.1 L Mean Corpuscular Hemoglobin Concent 31.3 L Red Cell Distribution Width 16.9 H Platelet Count 357 Mean Platelet Volume 9.1 Neutrophils % 77.0 Lymphocytes % 9.7 L Monocytes % 9.1 Eosinophils % 2.9 Basophils % 0.5 Nucleated Red Blood Cells % 0.0 Neutrophils # 12.8 H Lymphocytes # 1.6 Monocytes # 1.5 H Eosinophils # 0.5 Basophils # 0.1 Nucleated Red Blood Cells # 0.0 Medications Medications Current Medications Ondansetron HCl (Zofran Inj) 4 mg Q6 PRN IV NAUSEA AND/OR VOMITING; Start 09/26 at 22:30 Collagenase (Santyl) 1 applic DAILY TOP Last administered on 12/01/16 09:11; Admin Dose 1 APPLIC; Start 09/27/16 at 09:00 Collagenase (Santyl) 1 applic PRN PRN TOP SOILED OR DISLODGED DRESSING; Start 09/27/16 at 05:00 Lansoprazole (Prevacid) 30 mg DAILY@06 GTB Last administered on 12/01/16 05:28 ; Admin Dose 30 MG; Start 09/28/16 at 06:00 Cromolyn Sodium (Nasalcrom) 1 spray QID NASAL Last administered on 12/01/16 18 :30; Admin Dose 1 SPRAY; Start 09/29/16 at 11:02 Phenol (Cepastat Lozenge) 1 lozenge Q2H PRN MT SORE THROAT Last administered on 11/02/16 01:02; Admin Dose 1 LOZENGE; Start 10/01/16 at 19:00 IV Flush (NS 10 ml) 10 ml PRN PRN IV IV PROTOCOL Last administered on 11/17/16 03:20; Admin Dose 10 ML; Start 10/02/16 at 19:00 Hydromorphone HCl (Dilaudid) 0.5 mg Q4H PRN IV PAIN Last administered on 22:31; Admin Dose 0.5 MG; Start 10/06/16 at 18:30 Potassium Chloride 20 meq 20 meq DAILY GTB Last administered on 12/01/16 09:03 ; Admin Dose 20 MEQ; Start 10/30/16 at 12:00 Meropenem (Merrem 500 Mg/ 100 ml (Pmx)) 100 ml @ 200 mls/hr Q8 IVPB Last administered on 12/01/16 13:21; Admin Dose 200 MLS/HR; Start 11/14/16 at 14:00 Acetaminophen (Tylenol Liquid) 650 mg Q6H PRN PEG PAIN AND OR ELEVATED TEMP Last administered on 11/29/16 02:34; Admin Dose 650 MG; Start 11/16/16 at 20:04 Alprazolam (Xanax) 0.5 mg Q12H PRN PEG ANXIETY Last administered on 11/20/16 05 :30; Admin Dose 0.5 MG; Start 11/16/16 at 20:30 Ascorbic Acid (Vitamin C) 500 mg BID PEG Last administered on 12/01/16 09:02; Admin Dose 500 MG; Start 11/16/16 at 21:00 Atorvastatin Calcium (Lipitor) 20 mg QHS PEG Last administered on 11/30/16 21: 04; Admin Dose 20 MG; Start 11/16/16 at 21:00 Diazepam (Valium) 10 mg DAILY PEG Last administered on 12/01/16 09:11; Admin Dose 10 MG; Start 11/17/16 at 09:00 Duloxetine HCl (Cymbalta) 20 mg DAILY PEG Last administered on 12/01/16 09:10 ; Admin Dose 20 MG; Start 11/17/16 at 09:00 Fluconazole (Diflucan) 100 mg DAILY PEG Last administered on 12/01/16 09:02; Admin Dose 100 MG; Start 11/17/16 at 09:00 Lactobacillus Acidophilus (Florajen3 Capsule) 1 each TID PEG Last administered on 12/01/16 12:06; Admin Dose 1 EACH; Start 11/16/16 at 21:00 Metronidazole (Flagyl) 500 mg Q8 PEG Last administered on 12/01/16 13:21; Admin Dose 500 MG; Start 11/16/16 at 22:00 Promethazine HCl/ Codeine (Phenergan/ Codeine) 10 ml BID PRN PEG COUGH Last administered on 11/30/16 09:36; Admin Dose 10 ML; Start 11/16/16 at 20:00 Zolpidem Tartrate (Ambien) 5 mg QHS PRN PEG INSOMNIA; Start 11/16/16 at 20:00 Docusate Sodium (Colace Liquid Cup) 100 mg Q12 PRN GTB CONSTIPATION; Start 11/16 at 20:00 Oxycodone HCl 10 mg 10 mg Q4H PO Last administered on 12/01/16 18:29; Admin Dose 10 MG; Start 11/20/16 at 17:30 Sodium Chloride 1,000 ml @ 50 mls/hr Q20H IV Last administered on 12/01/16 05 :10; Admin Dose 50 MLS/HR; Start 11/23/16 at 04:00 Norepinephrine/ Dextrose (Levophed/D5W) 500 ml @ 1.87 mls/hr TITRATE IV Last administered on 11/29/16 02:21; Admin Dose 7.5 MLS/HR; Start 11/23/16 at 09:00 Midodrine 2.5 mg 2.5 mg TID@08,12,17 NGT Last administered on 12/01/16 18:30; Admin Dose 2.5 MG; Start 11/24/16 at 18:33 Vancomycin HCl (Vancocin) 100 ml @ 100 mls/hr Q12H IVPB Last administered on 18:30; Admin Dose 100 MLS/HR; Start 11/25/16 at 18:00 Furosemide (Lasix) 20 mg DAILY GTB Last administered on 12/01/16 09:02; Admin Dose 20 MG; Start 12/01/16 at 09:00 DIONNE SAUCEDA MD Dec 01, 2016 19:52
--- NOTE | 2016-12-01 21:18 | CONS ---
Date/Time of Note Date/Time of Note DATE: 12/01/16 TIME: 21:16 Assessment/Plan Assessment/Plan Chief Complaint/Hosp Course SUBJECTIVE: No events, tx to tele, looks comfortable, afebrile. INDWELLINGS: Trach, PEG, George, PICC line. ANTIMICROBIALS: 1. Fluconazole. 2. Flagyl. 3. Vancomycin. 4. Meropenem. PHYSICAL EXAMINATION: GENERAL: Chronically ill-appearing, cachectic, elderly woman who is intubated, in no distress. HEENT: Head atraumatic, normocephalic. Sclerae anicteric. Buccal mucosa dry. NECK: Supple. CHEST: Rise symmetrical. Breath sounds diminished. HEART: S1, S2. ABDOMEN: Soft. Bowel tones hypoactive. EXTREMITIES: No cyanosis. ASSESSMENT: 1. Acute on chronic respiratory failure, status post cardiopulmonary arrest. 2. Pneumonia. 3. Lung cancer. 4. History of Clostridium difficile colitis and recurrent urinary tract infection. 5. Unstageable sacral wound, status post debridement with wound VAC application. PLAN: Hemodynamically stable, continue on broad spectrum antibiotics, local wound care, vent per pulmonary. KARRI RN Problems: Consultation Date/Type/Reason Admit Date/Time Sep 26, 2016 at 20:07 Type of Consultation: ID Referring Provider: DRE LOBATO MD Exam/Review of Systems Vital Signs Vitals Vital Signs Date Time Temp Pulse Resp B/P Pulse Ox O2 Delivery O2 Flow Rate FiO2 12/01/16 21:04 117 20 97 30 12/01/16 15:17 98.3 100/67 11/30/16 20:00 Mechanical Ventilator Intake and Output 11/30/16 11/30/16 12/01/16 15:00 23:00 07:00 Intake Total 1155 ml 480 ml 700 ml Output Total 700 ml 300 ml 1320 ml Balance 455 ml 180 ml -620 ml Results Result Diagram: 12/01/16 0540 12/01/16 0500 Results 24 hrs Laboratory Tests Test 12/01/16 05:00 12/01/16 05:40 Sodium Level 136 Potassium Level 4.2 Chloride Level 102 Carbon Dioxide Level 28 Anion Gap 10 Blood Urea Nitrogen 15 Creatinine 0.40 L Glucose Level 105 Calcium Level 8.1 L Magnesium Level 1.4 L Total Bilirubin 0.0 L Direct Bilirubin 0.00 Indirect Bilirubin 0.0 Aspartate Amino Transf (AST/SGOT) 26 Alanine Aminotransferase (ALT/SGPT) 19 Alkaline Phosphatase 154 H Total Protein 6.6 Albumin 2.4 L Globulin 4.20 H Albumin/Globulin Ratio 0.57 White Blood Count 16.7 H Red Blood Count 3.32 L Hemoglobin 9.0 L Hematocrit 28.8 L Mean Corpuscular Volume 86.7 Mean Corpuscular Hemoglobin 27.1 L Mean Corpuscular Hemoglobin Concent 31.3 L Red Cell Distribution Width 16.9 H Platelet Count 357 Mean Platelet Volume 9.1 Neutrophils % 77.0 Lymphocytes % 9.7 L Monocytes % 9.1 Eosinophils % 2.9 Basophils % 0.5 Nucleated Red Blood Cells % 0.0 Neutrophils # 12.8 H Lymphocytes # 1.6 Monocytes # 1.5 H Eosinophils # 0.5 Basophils # 0.1 Nucleated Red Blood Cells # 0.0 Medications Medications Current Medications Ondansetron HCl (Zofran Inj) 4 mg Q6 PRN IV NAUSEA AND/OR VOMITING; Start 09/26 at 22:30 Collagenase (Santyl) 1 applic DAILY TOP Last administered on 12/01/16 09:11; Admin Dose 1 APPLIC; Start 09/27/16 at 09:00 Collagenase (Santyl) 1 applic PRN PRN TOP SOILED OR DISLODGED DRESSING; Start 09/27/16 at 05:00 Lansoprazole (Prevacid) 30 mg DAILY@06 GTB Last administered on 12/01/16 05:28 ; Admin Dose 30 MG; Start 09/28/16 at 06:00 Cromolyn Sodium (Nasalcrom) 1 spray QID NASAL Last administered on 12/01/16 18 :30; Admin Dose 1 SPRAY; Start 09/29/16 at 11:02 Phenol (Cepastat Lozenge) 1 lozenge Q2H PRN MT SORE THROAT Last administered on 11/02/16 01:02; Admin Dose 1 LOZENGE; Start 10/01/16 at 19:00 IV Flush (NS 10 ml) 10 ml PRN PRN IV IV PROTOCOL Last administered on 11/17/16 03:20; Admin Dose 10 ML; Start 10/02/16 at 19:00 Hydromorphone HCl (Dilaudid) 0.5 mg Q4H PRN IV PAIN Last administered on 22:31; Admin Dose 0.5 MG; Start 10/06/16 at 18:30 Potassium Chloride 20 meq 20 meq DAILY GTB Last administered on 12/01/16 09:03 ; Admin Dose 20 MEQ; Start 10/30/16 at 12:00 Meropenem (Merrem 500 Mg/ 100 ml (Pmx)) 100 ml @ 200 mls/hr Q8 IVPB Last administered on 12/01/16 13:21; Admin Dose 200 MLS/HR; Start 11/14/16 at 14:00 Acetaminophen (Tylenol Liquid) 650 mg Q6H PRN PEG PAIN AND OR ELEVATED TEMP Last administered on 11/29/16 02:34; Admin Dose 650 MG; Start 11/16/16 at 20:04 Alprazolam (Xanax) 0.5 mg Q12H PRN PEG ANXIETY Last administered on 11/20/16 05 :30; Admin Dose 0.5 MG; Start 11/16/16 at 20:30 Ascorbic Acid (Vitamin C) 500 mg BID PEG Last administered on 12/01/16 09:02; Admin Dose 500 MG; Start 11/16/16 at 21:00 Atorvastatin Calcium (Lipitor) 20 mg QHS PEG Last administered on 11/30/16 21: 04; Admin Dose 20 MG; Start 11/16/16 at 21:00 Diazepam (Valium) 10 mg DAILY PEG Last administered on 12/01/16 09:11; Admin Dose 10 MG; Start 11/17/16 at 09:00 Duloxetine HCl (Cymbalta) 20 mg DAILY PEG Last administered on 12/01/16 09:10 ; Admin Dose 20 MG; Start 11/17/16 at 09:00 Fluconazole (Diflucan) 100 mg DAILY PEG Last administered on 12/01/16 09:02; Admin Dose 100 MG; Start 11/17/16 at 09:00 Lactobacillus Acidophilus (Florajen3 Capsule) 1 each TID PEG Last administered on 12/01/16 12:06; Admin Dose 1 EACH; Start 11/16/16 at 21:00 Metronidazole (Flagyl) 500 mg Q8 PEG Last administered on 12/01/16 13:21; Admin Dose 500 MG; Start 11/16/16 at 22:00 Promethazine HCl/ Codeine (Phenergan/ Codeine) 10 ml BID PRN PEG COUGH Last administered on 11/30/16 09:36; Admin Dose 10 ML; Start 11/16/16 at 20:00 Zolpidem Tartrate (Ambien) 5 mg QHS PRN PEG INSOMNIA; Start 11/16/16 at 20:00 Docusate Sodium (Colace Liquid Cup) 100 mg Q12 PRN GTB CONSTIPATION; Start 11/16 at 20:00 Oxycodone HCl 10 mg 10 mg Q4H PO Last administered on 12/01/16 18:29; Admin Dose 10 MG; Start 11/20/16 at 17:30 Sodium Chloride 1,000 ml @ 50 mls/hr Q20H IV Last administered on 12/01/16 05 :10; Admin Dose 50 MLS/HR; Start 11/23/16 at 04:00 Norepinephrine/ Dextrose (Levophed/D5W) 500 ml @ 1.87 mls/hr TITRATE IV Last administered on 11/29/16 02:21; Admin Dose 7.5 MLS/HR; Start 11/23/16 at 09:00 Midodrine 2.5 mg 2.5 mg TID@08,12,17 NGT Last administered on 12/01/16 18:30; Admin Dose 2.5 MG; Start 11/24/16 at 18:33 Vancomycin HCl (Vancocin) 100 ml @ 100 mls/hr Q12H IVPB Last administered on 18:30; Admin Dose 100 MLS/HR; Start 11/25/16 at 18:00 Furosemide (Lasix) 20 mg DAILY GTB Last administered on 12/01/16 09:02; Admin Dose 20 MG; Start 12/01/16 at 09:00 RUBIN MAYEN NP Dec 01, 2016 21:18
--- NOTE | 2016-12-01 22:14 | CONS ---
Date/Time of Note Date/Time of Note DATE: 12/01/16 TIME: 22:13 Assessment/Plan Assessment/Plan Chief Complaint/Hosp Course Left lung squamous carcinoma. The patient is not a candidate for chemotherapy. Anemia of chronic disease. post 8 u prbc monitor blood count closely transfuse as needed to keep HB above 8 Acute respiratory insufficiency requiring BiPAP. trach -per daughter's wishes Acute shock, septic versus hypovolemic. tachycardia with episode of SVT. Chronic obstructive pulmonary disease. Dysphagia with G-tube. Continue current G-tube feeding. Hypothyroidism. Continue Synthroid. Problems: Consultation Date/Type/Reason Admit Date/Time Sep 26, 2016 at 20:07 Initial Consult Date 10/19/16 Type of Consultation: HEMEON Referring Provider: DRE LOBATO MD 24 HR Interval Summary Free Text/Dictation ALL NOTED NO NEW EVENTS Exam/Review of Systems Vital Signs Vitals Vital Signs Date Time Temp Pulse Resp B/P Pulse Ox O2 Delivery O2 Flow Rate FiO2 12/01/16 21:28 98.6 141 20 110/68 95 12/01/16 21:04 30 11/30/16 20:00 Mechanical Ventilator Intake and Output 11/30/16 11/30/16 12/01/16 15:00 23:00 07:00 Intake Total 1155 ml 480 ml 700 ml Output Total 700 ml 300 ml 1320 ml Balance 455 ml 180 ml -620 ml Exam Constitutional: frail Head: normocephalic ENMT: other (tracheostomy) Respiratory: diminished breath sounds Cardiovascular: nl pulses Gastrointestinal: non-tender, other (G-tube), soft Extremities: normal pulses Skin: other (Multiple wounds) Results Result Diagram: 12/01/16 0540 12/01/16 0500 Results 24 hrs Laboratory Tests Test 12/01/16 05:00 12/01/16 05:40 Sodium Level 136 Potassium Level 4.2 Chloride Level 102 Carbon Dioxide Level 28 Anion Gap 10 Blood Urea Nitrogen 15 Creatinine 0.40 L Glucose Level 105 Calcium Level 8.1 L Magnesium Level 1.4 L Total Bilirubin 0.0 L Direct Bilirubin 0.00 Indirect Bilirubin 0.0 Aspartate Amino Transf (AST/SGOT) 26 Alanine Aminotransferase (ALT/SGPT) 19 Alkaline Phosphatase 154 H Total Protein 6.6 Albumin 2.4 L Globulin 4.20 H Albumin/Globulin Ratio 0.57 White Blood Count 16.7 H Red Blood Count 3.32 L Hemoglobin 9.0 L Hematocrit 28.8 L Mean Corpuscular Volume 86.7 Mean Corpuscular Hemoglobin 27.1 L Mean Corpuscular Hemoglobin Concent 31.3 L Red Cell Distribution Width 16.9 H Platelet Count 357 Mean Platelet Volume 9.1 Neutrophils % 77.0 Lymphocytes % 9.7 L Monocytes % 9.1 Eosinophils % 2.9 Basophils % 0.5 Nucleated Red Blood Cells % 0.0 Neutrophils # 12.8 H Lymphocytes # 1.6 Monocytes # 1.5 H Eosinophils # 0.5 Basophils # 0.1 Nucleated Red Blood Cells # 0.0 Medications Medications Current Medications Ondansetron HCl (Zofran Inj) 4 mg Q6 PRN IV NAUSEA AND/OR VOMITING; Start 09/26 at 22:30 Collagenase (Santyl) 1 applic DAILY TOP Last administered on 12/01/16 09:11; Admin Dose 1 APPLIC; Start 09/27/16 at 09:00 Collagenase (Santyl) 1 applic PRN PRN TOP SOILED OR DISLODGED DRESSING; Start 09/27/16 at 05:00 Lansoprazole (Prevacid) 30 mg DAILY@06 GTB Last administered on 12/01/16 05:28 ; Admin Dose 30 MG; Start 09/28/16 at 06:00 Cromolyn Sodium (Nasalcrom) 1 spray QID NASAL Last administered on 12/01/16 18 :30; Admin Dose 1 SPRAY; Start 09/29/16 at 11:02 Phenol (Cepastat Lozenge) 1 lozenge Q2H PRN MT SORE THROAT Last administered on 11/02/16 01:02; Admin Dose 1 LOZENGE; Start 10/01/16 at 19:00 IV Flush (NS 10 ml) 10 ml PRN PRN IV IV PROTOCOL Last administered on 11/17/16 03:20; Admin Dose 10 ML; Start 10/02/16 at 19:00 Hydromorphone HCl (Dilaudid) 0.5 mg Q4H PRN IV PAIN Last administered on 22:31; Admin Dose 0.5 MG; Start 10/06/16 at 18:30 Potassium Chloride 20 meq 20 meq DAILY GTB Last administered on 12/01/16 09:03 ; Admin Dose 20 MEQ; Start 10/30/16 at 12:00 Meropenem (Merrem 500 Mg/ 100 ml (Pmx)) 100 ml @ 200 mls/hr Q8 IVPB Last administered on 12/01/16 13:21; Admin Dose 200 MLS/HR; Start 11/14/16 at 14:00 Acetaminophen (Tylenol Liquid) 650 mg Q6H PRN PEG PAIN AND OR ELEVATED TEMP Last administered on 11/29/16 02:34; Admin Dose 650 MG; Start 11/16/16 at 20:04 Alprazolam (Xanax) 0.5 mg Q12H PRN PEG ANXIETY Last administered on 11/20/16 05 :30; Admin Dose 0.5 MG; Start 11/16/16 at 20:30 Ascorbic Acid (Vitamin C) 500 mg BID PEG Last administered on 12/01/16 09:02; Admin Dose 500 MG; Start 11/16/16 at 21:00 Atorvastatin Calcium (Lipitor) 20 mg QHS PEG Last administered on 11/30/16 21: 04; Admin Dose 20 MG; Start 11/16/16 at 21:00 Diazepam (Valium) 10 mg DAILY PEG Last administered on 12/01/16 09:11; Admin Dose 10 MG; Start 11/17/16 at 09:00 Duloxetine HCl (Cymbalta) 20 mg DAILY PEG Last administered on 12/01/16 09:10 ; Admin Dose 20 MG; Start 11/17/16 at 09:00 Fluconazole (Diflucan) 100 mg DAILY PEG Last administered on 12/01/16 09:02; Admin Dose 100 MG; Start 11/17/16 at 09:00 Lactobacillus Acidophilus (Florajen3 Capsule) 1 each TID PEG Last administered on 12/01/16 12:06; Admin Dose 1 EACH; Start 11/16/16 at 21:00 Metronidazole (Flagyl) 500 mg Q8 PEG Last administered on 12/01/16 13:21; Admin Dose 500 MG; Start 11/16/16 at 22:00 Promethazine HCl/ Codeine (Phenergan/ Codeine) 10 ml BID PRN PEG COUGH Last administered on 11/30/16 09:36; Admin Dose 10 ML; Start 11/16/16 at 20:00 Zolpidem Tartrate (Ambien) 5 mg QHS PRN PEG INSOMNIA; Start 11/16/16 at 20:00 Docusate Sodium (Colace Liquid Cup) 100 mg Q12 PRN GTB CONSTIPATION; Start 11/16 at 20:00 Oxycodone HCl 10 mg 10 mg Q4H PO Last administered on 12/01/16 18:29; Admin Dose 10 MG; Start 11/20/16 at 17:30 Sodium Chloride 1,000 ml @ 50 mls/hr Q20H IV Last administered on 12/01/16 05 :10; Admin Dose 50 MLS/HR; Start 11/23/16 at 04:00 Norepinephrine/ Dextrose (Levophed/D5W) 500 ml @ 1.87 mls/hr TITRATE IV Last administered on 11/29/16 02:21; Admin Dose 7.5 MLS/HR; Start 11/23/16 at 09:00 Midodrine 2.5 mg 2.5 mg TID@08,12,17 NGT Last administered on 12/01/16 18:30; Admin Dose 2.5 MG; Start 11/24/16 at 18:33 Vancomycin HCl (Vancocin) 100 ml @ 100 mls/hr Q12H IVPB Last administered on 18:30; Admin Dose 100 MLS/HR; Start 11/25/16 at 18:00 Furosemide (Lasix) 20 mg DAILY GTB Last administered on 12/01/16 09:02; Admin Dose 20 MG; Start 12/01/16 at 09:00 DYLLAN CARRION MD Dec 01, 2016 22:14
[2016-12-01] MEDS: ATORVASTATIN 20 MG TAB PEG SCH (22:20)
[2016-12-02] VITALS (21 sets, daily range): BP systolic 91–106; BP diastolic 61–75; PULSE 101–127; RESP 18–27
[2016-12-02] MEDS: oxyCODONE 5 MG TAB PO SCH ×6 (02:57→21:29)
[2016-12-02] MEDS: SOD CHLORIDE 0.9% 1,000 ML IV SCH ×2 (02:58→08:00)
[2016-12-02] MEDS: MEROPENEM 500 MG/100 ML (PMX) 100 ML IVPB SCH ×3 (06:04→21:28)
[2016-12-02] MEDS: LANSOPRAZOLE 30 MG CAP GTB SCH (06:04)
[2016-12-02] MEDS: metroNIDAZOLE 500 MG TAB PEG SCH ×3 (06:04→21:29)
[2016-12-02] MEDS: LEVOTHYROXINE 125 MCG TAB PEG SCH (06:05)
[2016-12-02 06:24] LABS: ADD SCAN DIFF NO
[2016-12-02 06:28] LABS: BASOPHIL # 0.1 10^3/ul (0.0-0.1); BASOPHILS % 0.4 % (0.0-2.0); EOSINOPHILS # 0.4 10^3/ul (0.0-0.5); EOSINOPHILS % 2.5 % (0.0-7.0); HEMATOCRIT 29.2 % (37.0-47.0); HEMOGLOBIN 9.2 g/dl (12.0-16.0); LYMPHOCYTES # 2.2 10^3/ul (0.8-2.9); LYMPHOCYTES % 13.9 % (15.0-51.0); MEAN CORPUSCULAR HEMOGLOBIN 27.2 pg (29.0-33.0); MEAN CORPUSCULAR HGB CONC 31.5 g/dl (32.0-37.0); MEAN CORPUSCULAR VOLUME 86.4 fl (82.0-101.0); MEAN PLATELET VOLUME 8.9 fl (7.4-10.4); MONOCYTE # 1.5 10^3/ul (0.3-0.9); MONOCYTES % 9.3 % (0.0-11.0); NEUTROPHIL # 11.4 10^3/ul (1.6-7.5); NEUTROPHILS % 73.2 % (39.0-77.0); PLATELET COUNT 381 10^3/UL (140-415); RED BLOOD COUNT 3.38 10^6/ul (4.20-5.40); RED CELL DISTRIBUTION WIDTH 16.8 % (11.5-14.5); WHITE BLOOD COUNT 15.6 10^3/ul (4.8-10.8)
[2016-12-02] MEDS: VANCOMYCIN 500MG/NS (PMX) 100 ML IVPB SCH ×2 (06:48→17:43)
[2016-12-02 07:20] LABS: CALCIUM 7.8 mg/dl (8.4-10.2); CREATININE 0.49 mg/dl (0.44-1.00); POTASSIUM 3.6 mmol/L (3.5-5.1)
[2016-12-02] MEDS: POTASSIUM CHLORIDE 20 MEQ POWDER FOR ORAL SOLN GTB SCH (09:36)
[2016-12-02] MEDS: MIDODRINE 2.5 MG TAB NGT SCH ×3 (09:36→17:39)
[2016-12-02] MEDS: L ACIDOPHIL/B LACTIS/B LONGUM CAPSULE PEG SCH ×3 (09:36→21:29)
[2016-12-02] MEDS: DULOXETINE 20 MG CAP DR PEG SCH (09:36)
[2016-12-02] MEDS: FLUCONAZOLE 100 MG TAB PEG SCH (09:37)
[2016-12-02] MEDS: FUROSEMIDE 20 MG TAB GTB SCH (09:37)
[2016-12-02] MEDS: ASCORBIC ACID 500 MG TAB PEG SCH ×2 (09:37→21:29)
[2016-12-02] MEDS: COLLAGENASE 30 GM TUBE TOP SCH (09:38)
[2016-12-02] MEDS: CROMOLYN 4% 26ML NAS INH NASAL SCH ×4 (09:39→21:28)
--- NOTE | 2016-12-02 10:10 | CONS ---
Date/Time of Note Date/Time of Note DATE: 12/02/16 TIME: 10:06 Assessment/Plan Assessment/Plan Additional Assessment/Plan Ventilator setting; AC of 18, tidal volume 450, PEEP of 5, 30% FiO2. Assessment recommendations; 1. Patient admitted for severe sepsis from sacral decubitus ulcer. 2. Underlying severe COPD. 3. Underlying lung malignancy. 4. Status post CPR with anoxic brain injury, status post tracheostomy and G- tube placement. 5. Anemia. Continue current supportive care. Prognosis is poor. Consultation Date/Type/Reason Admit Date/Time Sep 26, 2016 at 20:07 Initial Consult Date 11/14/16 Type of Consultation: Pulmonary Referring Provider: DRE LOBATO MD 24 HR Interval Summary Free Text/Dictation Patient condition remains stable. Remains unresponsive. Has remained hemodynamically stable. General exam; elderly woman on ventilator via tracheostomy currently in no distress. Exam/Review of Systems Vital Signs Vitals Vital Signs Date Time Temp Pulse Resp B/P Pulse Ox O2 Delivery O2 Flow Rate FiO2 12/02/16 08:20 115 12/02/16 08:20 98.5 18 106/71 97 12/02/16 07:10 30 12/02/16 07:10 4.0 11/30/16 20:00 Mechanical Ventilator Intake and Output 12/01/16 12/01/16 12/02/16 15:00 23:00 07:00 Intake Total 1500 ml 1570 ml Output Total 1550 ml 1300 ml Balance -50 ml 270 ml Exam HEENT examination; supple neck, no JVD. No lymphadenopathy. Midline trachea. No thyromegaly. Tracheostomy in place. Patient has multiple carious teeth. Chest examined; diminished but clear breath sound. S1-S2 audible, no murmurs. Regular rhythm. Abdomen examination; soft, G-tube in place. No organomegaly. Bowel sounds audible. Back examination; dressing applied over sacrum. Extremity examination; no peripheral edema. CORE FINISHER examination; patient remains unresponsive. Results Result Diagram: 12/02/1660412/02/16 06 Results 24 hrs Laboratory Tests Test 12/02/16 06:05 White Blood Count 15.6 H Red Blood Count 3.38 L Hemoglobin 9.2 L Hematocrit 29.2 L Mean Corpuscular Volume 86.4 Mean Corpuscular Hemoglobin 27.2 L Mean Corpuscular Hemoglobin Concent 31.5 L Red Cell Distribution Width 16.8 H Platelet Count 381 Mean Platelet Volume 8.9 Neutrophils % 73.2 Lymphocytes % 13.9 L Monocytes % 9.3 Eosinophils % 2.5 Basophils % 0.4 Nucleated Red Blood Cells % 0.0 Neutrophils # 11.4 H Lymphocytes # 2.2 Monocytes # 1.5 H Eosinophils # 0.4 Basophils # 0.1 Nucleated Red Blood Cells # 0.0 Sodium Level 133 L Potassium Level 3.6 Chloride Level 97 Carbon Dioxide Level 31 Anion Gap 9 Blood Urea Nitrogen 16 Creatinine 0.49 Glucose Level 105 Calcium Level 7.8 L Medications Medications Current Medications Ondansetron HCl (Zofran Inj) 4 mg Q6 PRN IV NAUSEA AND/OR VOMITING; Start 09/26 at 22:30 Collagenase (Santyl) 1 applic DAILY TOP Last administered on 12/02/16 09:38; Admin Dose 1 APPLIC; Start 09/27/16 at 09:00 Collagenase (Santyl) 1 applic PRN PRN TOP SOILED OR DISLODGED DRESSING; Start 09/27/16 at 05:00 Lansoprazole (Prevacid) 30 mg DAILY@06 GTB Last administered on 12/02/16 06:04 ; Admin Dose 30 MG; Start 09/28/16 at 06:00 Cromolyn Sodium (Nasalcrom) 1 spray QID NASAL Last administered on 12/02/16 09 :39; Admin Dose 1 SPRAY; Start 09/29/16 at 11:02 Phenol (Cepastat Lozenge) 1 lozenge Q2H PRN MT SORE THROAT Last administered on 11/02/16 01:02; Admin Dose 1 LOZENGE; Start 10/01/16 at 19:00 IV Flush (NS 10 ml) 10 ml PRN PRN IV IV PROTOCOL Last administered on 11/17/16 03:20; Admin Dose 10 ML; Start 10/02/16 at 19:00 Hydromorphone HCl (Dilaudid) 0.5 mg Q4H PRN IV PAIN Last administered on 22:31; Admin Dose 0.5 MG; Start 10/06/16 at 18:30 Potassium Chloride 20 meq 20 meq DAILY GTB Last administered on 12/02/16 09:36 ; Admin Dose 20 MEQ; Start 10/30/16 at 12:00 Meropenem (Merrem 500 Mg/ 100 ml (Pmx)) 100 ml @ 200 mls/hr Q8 IVPB Last administered on 12/02/16 06:04; Admin Dose 200 MLS/HR; Start 11/14/16 at 14:00 Acetaminophen (Tylenol Liquid) 650 mg Q6H PRN PEG PAIN AND OR ELEVATED TEMP Last administered on 11/29/16 02:34; Admin Dose 650 MG; Start 11/16/16 at 20:04 Alprazolam (Xanax) 0.5 mg Q12H PRN PEG ANXIETY Last administered on 11/20/16 05 :30; Admin Dose 0.5 MG; Start 11/16/16 at 20:30 Ascorbic Acid (Vitamin C) 500 mg BID PEG Last administered on 12/02/16 09:37; Admin Dose 500 MG; Start 11/16/16 at 21:00 Atorvastatin Calcium (Lipitor) 20 mg QHS PEG Last administered on 12/01/16 22: 20; Admin Dose 20 MG; Start 11/16/16 at 21:00 Diazepam (Valium) 10 mg DAILY PEG Last administered on 12/01/16 09:11; Admin Dose 10 MG; Start 11/17/16 at 09:00 Duloxetine HCl (Cymbalta) 20 mg DAILY PEG Last administered on 12/02/16 09:36 ; Admin Dose 20 MG; Start 11/17/16 at 09:00 Fluconazole (Diflucan) 100 mg DAILY PEG Last administered on 12/02/16 09:37; Admin Dose 100 MG; Start 11/17/16 at 09:00 Lactobacillus Acidophilus (Florajen3 Capsule) 1 each TID PEG Last administered on 12/02/16 09:36; Admin Dose 1 EACH; Start 11/16/16 at 21:00 Metronidazole (Flagyl) 500 mg Q8 PEG Last administered on 12/02/16 06:04; Admin Dose 500 MG; Start 11/16/16 at 22:00 Promethazine HCl/ Codeine (Phenergan/ Codeine) 10 ml BID PRN PEG COUGH Last administered on 11/30/16 09:36; Admin Dose 10 ML; Start 11/16/16 at 20:00 Zolpidem Tartrate (Ambien) 5 mg QHS PRN PEG INSOMNIA; Start 11/16/16 at 20:00 Docusate Sodium (Colace Liquid Cup) 100 mg Q12 PRN GTB CONSTIPATION; Start 11/16 at 20:00 Oxycodone HCl 10 mg 10 mg Q4H PO Last administered on 12/02/16 09:37; Admin Dose 10 MG; Start 11/20/16 at 17:30 Sodium Chloride 1,000 ml @ 50 mls/hr Q20H IV Last administered on 12/02/16 02 :58; Admin Dose 50 MLS/HR; Start 11/23/16 at 04:00 Norepinephrine/ Dextrose (Levophed/D5W) 500 ml @ 1.87 mls/hr TITRATE IV Last administered on 11/29/16 02:21; Admin Dose 7.5 MLS/HR; Start 11/23/16 at 09:00 Midodrine 2.5 mg 2.5 mg TID@08,12,17 NGT Last administered on 12/02/16 09:36; Admin Dose 2.5 MG; Start 11/24/16 at 18:33 Vancomycin HCl (Vancocin) 100 ml @ 100 mls/hr Q12H IVPB Last administered on 06:48; Admin Dose 100 MLS/HR; Start 11/25/16 at 18:00 Furosemide (Lasix) 20 mg DAILY GTB Last administered on 12/02/16 09:37; Admin Dose 20 MG; Start 12/01/16 at 09:00 REGINE BUCKLEY 17, 2017 10:10
[2016-12-02] MEDS: DIAZEPAM 5 MG TAB PEG SCH (10:48)
--- NOTE | 2016-12-02 14:49 | CONS ---
Date/Time of Note Date/Time of Note DATE: 12/02/16 TIME: 14:47 Assessment/Plan Assessment/Plan Additional Assessment/Plan 1. acute on chronic resp failure intubated on ventilator- not able to wean off s/p Tracheostomy 2. PEA s/p resuscitation 3. Hyponatremia multifactorial 4. Pneumonia. 3. Lung cancer. 4. History of Clostridium difficile colitis and recurrent urinary tract infection. 5. Unstageable sacral wound, status post debridement with wound VAC application. PLAN: conitnue IV abx, ID following, S/p Tracheostomy making good urine Electrolytes stable afebrile, BP stable but HR still tachycardic will follow up Consultation Date/Type/Reason Admit Date/Time Sep 26, 2016 at 20:07 Type of Consultation: NEPHROLOGY Referring Provider: DRE LOBATO MD 24 HR Interval Summary Free Text/Dictation no acute events, BP stable Exam/Review of Systems Vital Signs Vitals Vital Signs Date Time Temp Pulse Resp B/P Pulse Ox O2 Delivery O2 Flow Rate FiO2 12/02/16 13:35 137 18 96 30 12/02/16 11:35 98.1 106/75 12/02/16 07:10 4.0 11/30/16 20:00 Mechanical Ventilator Intake and Output 12/01/16 12/01/16 12/02/16 15:00 23:00 07:00 Intake Total 1500 ml 1570 ml Output Total 1550 ml 1300 ml Balance -50 ml 270 ml Exam GENERAL: Chronically ill-appearing, + tracheostomy HEENT: + tracheostomy NECK: Supple. CHEST: Rise symmetrical. Breath sounds diminished. HEART: S1, S2. ABDOMEN: Soft. EXTREMITIES: No cyanosis. Results Result Diagram: 12/02/16 0612/02/16 06 Results 24 hrs Laboratory Tests Test 12/02/16 06:05 White Blood Count 15.6 H Red Blood Count 3.38 L Hemoglobin 9.2 L Hematocrit 29.2 L Mean Corpuscular Volume 86.4 Mean Corpuscular Hemoglobin 27.2 L Mean Corpuscular Hemoglobin Concent 31.5 L Red Cell Distribution Width 16.8 H Platelet Count 381 Mean Platelet Volume 8.9 Neutrophils % 73.2 Lymphocytes % 13.9 L Monocytes % 9.3 Eosinophils % 2.5 Basophils % 0.4 Nucleated Red Blood Cells % 0.0 Neutrophils # 11.4 H Lymphocytes # 2.2 Monocytes # 1.5 H Eosinophils # 0.4 Basophils # 0.1 Nucleated Red Blood Cells # 0.0 Sodium Level 133 L Potassium Level 3.6 Chloride Level 97 Carbon Dioxide Level 31 Anion Gap 9 Blood Urea Nitrogen 16 Creatinine 0.49 Glucose Level 105 Calcium Level 7.8 L Medications Medications Current Medications Ondansetron HCl (Zofran Inj) 4 mg Q6 PRN IV NAUSEA AND/OR VOMITING; Start 09/26 at 22:30 Collagenase (Santyl) 1 applic DAILY TOP Last administered on 12/02/16 09:38; Admin Dose 1 APPLIC; Start 09/27/16 at 09:00 Collagenase (Santyl) 1 applic PRN PRN TOP SOILED OR DISLODGED DRESSING; Start 09/27/16 at 05:00 Lansoprazole (Prevacid) 30 mg DAILY@06 GTB Last administered on 12/02/16 06:04 ; Admin Dose 30 MG; Start 09/28/16 at 06:00 Cromolyn Sodium (Nasalcrom) 1 spray QID NASAL Last administered on 12/02/16 13 :05; Admin Dose 1 SPRAY; Start 09/29/16 at 11:02 Phenol (Cepastat Lozenge) 1 lozenge Q2H PRN MT SORE THROAT Last administered on 11/02/16 01:02; Admin Dose 1 LOZENGE; Start 10/01/16 at 19:00 IV Flush (NS 10 ml) 10 ml PRN PRN IV IV PROTOCOL Last administered on 11/17/16 03:20; Admin Dose 10 ML; Start 10/02/16 at 19:00 Hydromorphone HCl (Dilaudid) 0.5 mg Q4H PRN IV PAIN Last administered on 22:31; Admin Dose 0.5 MG; Start 10/06/16 at 18:30 Potassium Chloride 20 meq 20 meq DAILY GTB Last administered on 12/02/16 09:36 ; Admin Dose 20 MEQ; Start 10/30/16 at 12:00 Meropenem (Merrem 500 Mg/ 100 ml (Pmx)) 100 ml @ 200 mls/hr Q8 IVPB Last administered on 12/02/16 13:07; Admin Dose 200 MLS/HR; Start 11/14/16 at 14:00 Acetaminophen (Tylenol Liquid) 650 mg Q6H PRN PEG PAIN AND OR ELEVATED TEMP Last administered on 11/29/16 02:34; Admin Dose 650 MG; Start 11/16/16 at 20:04 Alprazolam (Xanax) 0.5 mg Q12H PRN PEG ANXIETY Last administered on 11/20/16 05 :30; Admin Dose 0.5 MG; Start 11/16/16 at 20:30 Ascorbic Acid (Vitamin C) 500 mg BID PEG Last administered on 12/02/16 09:37; Admin Dose 500 MG; Start 11/16/16 at 21:00 Atorvastatin Calcium (Lipitor) 20 mg QHS PEG Last administered on 12/01/16 22: 20; Admin Dose 20 MG; Start 11/16/16 at 21:00 Diazepam (Valium) 10 mg DAILY PEG Last administered on 12/02/16 10:48; Admin Dose 10 MG; Start 11/17/16 at 09:00 Duloxetine HCl (Cymbalta) 20 mg DAILY PEG Last administered on 12/02/16 09:36 ; Admin Dose 20 MG; Start 11/17/16 at 09:00 Fluconazole (Diflucan) 100 mg DAILY PEG Last administered on 12/02/16 09:37; Admin Dose 100 MG; Start 11/17/16 at 09:00 Lactobacillus Acidophilus (Florajen3 Capsule) 1 each TID PEG Last administered on 12/02/16 13:05; Admin Dose 1 EACH; Start 11/16/16 at 21:00 Metronidazole (Flagyl) 500 mg Q8 PEG Last administered on 12/02/16 13:05; Admin Dose 500 MG; Start 11/16/16 at 22:00 Promethazine HCl/ Codeine (Phenergan/ Codeine) 10 ml BID PRN PEG COUGH Last administered on 11/30/16 09:36; Admin Dose 10 ML; Start 11/16/16 at 20:00 Zolpidem Tartrate (Ambien) 5 mg QHS PRN PEG INSOMNIA; Start 11/16/16 at 20:00 Docusate Sodium (Colace Liquid Cup) 100 mg Q12 PRN GTB CONSTIPATION; Start 11/16 at 20:00 Oxycodone HCl 10 mg 10 mg Q4H PO Last administered on 12/02/16 13:42; Admin Dose 10 MG; Start 11/20/16 at 17:30 Sodium Chloride (NS) 1,000 ml @ 50 mls/hr Q20H IV Last administered on 02:58; Admin Dose 50 MLS/HR; Start 11/23/16 at 04:00 Midodrine 2.5 mg 2.5 mg TID@08,,17 NGT Last administered on 12/02/16 13:06; Admin Dose 2.5 MG; Start 11/24/16 at 18:33 Vancomycin HCl (Vancocin) 100 ml @ 100 mls/hr Q12H IVPB Last administered on 06:48; Admin Dose 100 MLS/HR; Start 11/25/16 at 18:00 Furosemide (Lasix) 20 mg DAILY GTB Last administered on 12/02/16 09:37; Admin Dose 20 MG; Start 12/01/16 at 09:00 Miscellaneous Information (*Rx Drug Level Order Reminder*) VANCOMYCIN TROUGH AT 1700 ONCE ONCE XX ; Start 12/03/16 at 17:00; Stop 12/03/16 at 17:01 DIONNE SAUCEDA MD Dec 02, 2016 14:49
--- NOTE | 2016-12-02 20:41 | PN ---
Date/Time of Note Date/Time of Note DATE: 12/02/16 TIME: 16:01 Assessment/Plan VTE Prophylaxis VTE Prophylaxis Intervention: other Lines/Catheters IV Catheter Type (from [facility]): PICC Line Central line still needed: Yes Urinary Cath still in place: Yes Reason Cath still needed: urinary retention Assessment/Plan Assessment/Plan - Hypomagnesemia, magnesium replaced yesterday. No mag lab available today. Will do stat Mag level- fu. - Status post tracheostomy by Dr. White ENT on 11/28. - Status post cardiopulmonary arrest. - Septic shock, resolving. Dr. Coleman is following in infectious disease consultation. Continue antibiotics per ID. - Acute respiratory failure. Continue breathing treatment, oxygen supply supplementation and bronchodilators. Dr. Lopez is following in pulmonology consultation. - Left lung squamous carcinoma. The patient is not a candidate for chemotherapy. Dr. Calvo is following in oncology consultation. - Chronic obstructive pulmonary disease. Patient with long history of tobacco use. - Anemia of chronic disease. Continue to monitor hemoglobin and hematocrit. - Dysphagia with G-tube. Continue G-tube feeding, monitor residual. Continue aspiration precautions. - Hypothyroidism. Continue Synthroid. - Chronic pain. - Failure to thrive. Continue sequential compression device for deep venous thrombosis prophylaxis and Prevacid for peptic ulcer disease prophylaxis. Further recommendations based on clinical course. Plan of care discussed with Dr. Dozier. Subjective 24 Hr Interval Summary Constitutional: requiring IVF, requiring O2 Respiratory: no complaints Cardiovascular: no complaints Exam/Review of Systems Vital Signs Vitals Vital Signs Date Time Temp Pulse Resp B/P Pulse Ox O2 Delivery O2 Flow Rate FiO2 12/02/16 15:30 106 22 94 30 12/02/16 14:55 98.3 91/61 12/02/16 07:10 4.0 11/30/16 20:00 Mechanical Ventilator Intake and Output 12/01/16 12/01/16 12/02/16 15:00 23:00 07:00 Intake Total 1500 ml 1570 ml Output Total 1550 ml 1300 ml Balance -50 ml 270 ml Exam Constitutional: alert Neck: other (trach intact) Respiratory: clear to auscultation, normal air movement Cardiovascular: nl pulses, regular rate and rhythm Gastrointestinal: non-tender, soft Musculoskeletal: muscle weakness Extremities: normal pulses Results Result Diagram: 12/02/1660412/02/16604 Results 24 hrs Laboratory Tests Test 12/02/16 06:05 White Blood Count 15.6 H Red Blood Count 3.38 L Hemoglobin 9.2 L Hematocrit 29.2 L Mean Corpuscular Volume 86.4 Mean Corpuscular Hemoglobin 27.2 L Mean Corpuscular Hemoglobin Concent 31.5 L Red Cell Distribution Width 16.8 H Platelet Count 381 Mean Platelet Volume 8.9 Neutrophils % 73.2 Lymphocytes % 13.9 L Monocytes % 9.3 Eosinophils % 2.5 Basophils % 0.4 Nucleated Red Blood Cells % 0.0 Neutrophils # 11.4 H Lymphocytes # 2.2 Monocytes # 1.5 H Eosinophils # 0.4 Basophils # 0.1 Nucleated Red Blood Cells # 0.0 Sodium Level 133 L Potassium Level 3.6 Chloride Level 97 Carbon Dioxide Level 31 Anion Gap 9 Blood Urea Nitrogen 16 Creatinine 0.49 Glucose Level 105 Calcium Level 7.8 L Medications Medications Current Medications Ondansetron HCl (Zofran Inj) 4 mg Q6 PRN IV NAUSEA AND/OR VOMITING; Start 09/26 at 22:30 Collagenase (Santyl) 1 applic DAILY TOP Last administered on 12/02/16 09:38; Admin Dose 1 APPLIC; Start 09/27/16 at 09:00 Collagenase (Santyl) 1 applic PRN PRN TOP SOILED OR DISLODGED DRESSING; Start 09/27/16 at 05:00 Lansoprazole (Prevacid) 30 mg DAILY@06 GTB Last administered on 12/02/16 06:04 ; Admin Dose 30 MG; Start 09/28/16 at 06:00 Cromolyn Sodium (Nasalcrom) 1 spray QID NASAL Last administered on 12/02/16 13 :05; Admin Dose 1 SPRAY; Start 09/29/16 at 11:02 Phenol (Cepastat Lozenge) 1 lozenge Q2H PRN MT SORE THROAT Last administered on 11/02/16 01:02; Admin Dose 1 LOZENGE; Start 10/01/16 at 19:00 IV Flush (NS 10 ml) 10 ml PRN PRN IV IV PROTOCOL Last administered on 11/17/16 03:20; Admin Dose 10 ML; Start 10/02/16 at 19:00 Hydromorphone HCl (Dilaudid) 0.5 mg Q4H PRN IV PAIN Last administered on 22:31; Admin Dose 0.5 MG; Start 10/06/16 at 18:30 Potassium Chloride 20 meq 20 meq DAILY GTB Last administered on 12/02/16 09:36 ; Admin Dose 20 MEQ; Start 10/30/16 at 12:00 Meropenem (Merrem 500 Mg/ 100 ml (Pmx)) 100 ml @ 200 mls/hr Q8 IVPB Last administered on 12/02/16 13:07; Admin Dose 200 MLS/HR; Start 11/14/16 at 14:00 Acetaminophen (Tylenol Liquid) 650 mg Q6H PRN PEG PAIN AND OR ELEVATED TEMP Last administered on 11/29/16 02:34; Admin Dose 650 MG; Start 11/16/16 at 20:04 Alprazolam (Xanax) 0.5 mg Q12H PRN PEG ANXIETY Last administered on 11/20/16 05 :30; Admin Dose 0.5 MG; Start 11/16/16 at 20:30 Ascorbic Acid (Vitamin C) 500 mg BID PEG Last administered on 12/02/16 09:37; Admin Dose 500 MG; Start 11/16/16 at 21:00 Atorvastatin Calcium (Lipitor) 20 mg QHS PEG Last administered on 12/01/16 22: 20; Admin Dose 20 MG; Start 11/16/16 at 21:00 Diazepam (Valium) 10 mg DAILY PEG Last administered on 12/02/16 10:48; Admin Dose 10 MG; Start 11/17/16 at 09:00 Duloxetine HCl (Cymbalta) 20 mg DAILY PEG Last administered on 12/02/16 09:36 ; Admin Dose 20 MG; Start 11/17/16 at 09:00 Fluconazole (Diflucan) 100 mg DAILY PEG Last administered on 12/02/16 09:37; Admin Dose 100 MG; Start 11/17/16 at 09:00 Lactobacillus Acidophilus (Florajen3 Capsule) 1 each TID PEG Last administered on 12/02/16 13:05; Admin Dose 1 EACH; Start 11/16/16 at 21:00 Metronidazole (Flagyl) 500 mg Q8 PEG Last administered on 12/02/16 13:05; Admin Dose 500 MG; Start 11/16/16 at 22:00 Promethazine HCl/ Codeine (Phenergan/ Codeine) 10 ml BID PRN PEG COUGH Last administered on 11/30/16 09:36; Admin Dose 10 ML; Start 11/16/16 at 20:00 Zolpidem Tartrate (Ambien) 5 mg QHS PRN PEG INSOMNIA; Start 11/16/16 at 20:00 Docusate Sodium (Colace Liquid Cup) 100 mg Q12 PRN GTB CONSTIPATION; Start 11/16 at 20:00 Oxycodone HCl 10 mg 10 mg Q4H PO Last administered on 12/02/16 13:42; Admin Dose 10 MG; Start 11/20/16 at 17:30 Sodium Chloride (NS) 1,000 ml @ 50 mls/hr Q20H IV Last administered on 02:58; Admin Dose 50 MLS/HR; Start 11/23/16 at 04:00 Midodrine 2.5 mg 2.5 mg TID@08,,17 NGT Last administered on 12/02/16 13:06; Admin Dose 2.5 MG; Start 11/24/16 at 18:33 Vancomycin HCl (Vancocin) 100 ml @ 100 mls/hr Q12H IVPB Last administered on 06:48; Admin Dose 100 MLS/HR; Start 11/25/16 at 18:00 Furosemide (Lasix) 20 mg DAILY GTB Last administered on 12/02/16 09:37; Admin Dose 20 MG; Start 12/01/16 at 09:00 Miscellaneous Information (*Rx Drug Level Order Reminder*) VANCOMYCIN TROUGH AT 1700 ONCE ONCE XX ; Start 12/03/16 at 17:00; Stop 12/03/16 at 17:01 VIKASH CASTANEDA Dec 02, 2016 16:04
--- NOTE | 2016-12-02 20:46 | CONS ---
Date/Time of Note Date/Time of Note DATE: 12/02/16 TIME: 18:51 Assessment/Plan Assessment/Plan Chief Complaint/Hosp Course ID PROGRESS NOTE ABX: 1. Fluconazole. 2. Flagyl. 3. Vancomycin. 4. Meropenem. 24H INTERVAL SUMMARY * Resting comfortably on the Vent, opens eyes, non-communicative * No fevers, VSS * CXR 12/01/16: IMPRESSION: * Cardiomegaly with calcified atherosclerosis in the aorta. * Interval replacement of an endotracheal tube with a tracheostomy tube. Tracheostomy tube appears in appropriate location. * Stable left lower lobe and lingular consolidation, possibly combined with small pleural effusion. * Stable patchy atelectasis versus infiltrates in the right lower lobe. * Stable diffuse interstitial prominence in both lungs. PHYSICAL EXAMINATION: GENERAL: This is a chronically ill-appearing, frail 66 yo F HEENT: Unremarkable -- wearing eyeglasses NECK: Trach (+) secure to Vent CHEST: Rise symmetrical without dyspnea ABDOMEN: Soft EXTREMITIES: Moves all extremities, Without cyanosis. ID ASSESSMENT: 66 yo F w/PMHx Dementia, CVA(chronic left thalamic lacunar infarction), Tobacco/ COPD-Emphysema/Lung Cancer re-admit with: 1. s/p Acute shock = RESOLVED * Afebrile * Hx of Chronic mild tachycardia - albuterol * Chronic elevated WBC 2. s/p Recurrent UTI = RESOLVED * (+)ACBA * s/p Proteus mirabilis and Klebsiella pneumoniae 3. Urinary retention with chronic George=>Probable neurogenic bladder 5. Acute on Chronic respiratory failure secondary to chronic obstructive pulmonary disease exacerbation. * S/P Trach after unable to wean from Vent 6. Bilateral HCAP per CXR . 7. Multiple decubitus with a history of debridement => Sacrococcygeal ulcer s /p exc boris 8. H/O DJD spine -> Hx of lumbar spinal fusion 9 .H/O Hypertension w/HTN heart disease mild-mod cLVH on ECHO w/diastolic dysfunction STG I 10. Right hand/wrist pain => CT showed triscaphe arthritis -- Probable pseudogout best treated w/NSAIDS 11. Hx of recurrent C.Diff colitis 12. Chronic debility w/Cachexia (+) MRSA Nares screen ->Bactroban INVASIVES: PICC, FC, Peg ALLERGY: PENICILLIN. CURRENT ABX: 1. Fluconazole. 2. Flagyl. 3. Vancomycin. 4. Meropenem. ID PLAN: * Continue current ABX for infected decubs & HCAP . . Problems: Consultation Date/Type/Reason Admit Date/Time Sep 26, 2016 at 20:07 Type of Consultation: ID Referring Provider: DRE LOBATO MD Exam/Review of Systems Vital Signs Vitals Vital Signs Date Time Temp Pulse Resp B/P Pulse Ox O2 Delivery O2 Flow Rate FiO2 12/02/16 15:30 106 22 94 30 12/02/16 14:55 98.3 91/61 12/02/16 07:10 4.0 11/30/16 20:00 Mechanical Ventilator Intake and Output 12/01/16 12/01/16 12/02/16 15:00 23:00 07:00 Intake Total 1500 ml 1570 ml Output Total 1550 ml 1300 ml Balance -50 ml 270 ml Results Result Diagram: 12/02/16 0605 12/02/16 0605 Results 24 hrs Laboratory Tests Test 12/02/16 06:05 White Blood Count 15.6 H Red Blood Count 3.38 L Hemoglobin 9.2 L Hematocrit 29.2 L Mean Corpuscular Volume 86.4 Mean Corpuscular Hemoglobin 27.2 L Mean Corpuscular Hemoglobin Concent 31.5 L Red Cell Distribution Width 16.8 H Platelet Count 381 Mean Platelet Volume 8.9 Neutrophils % 73.2 Lymphocytes % 13.9 L Monocytes % 9.3 Eosinophils % 2.5 Basophils % 0.4 Nucleated Red Blood Cells % 0.0 Neutrophils # 11.4 H Lymphocytes # 2.2 Monocytes # 1.5 H Eosinophils # 0.4 Basophils # 0.1 Nucleated Red Blood Cells # 0.0 Sodium Level 133 L Potassium Level 3.6 Chloride Level 97 Carbon Dioxide Level 31 Anion Gap 9 Blood Urea Nitrogen 16 Creatinine 0.49 Glucose Level 105 Calcium Level 7.8 L Medications Medications Current Medications Ondansetron HCl (Zofran Inj) 4 mg Q6 PRN IV NAUSEA AND/OR VOMITING; Start 09/26 at 22:30 Collagenase (Santyl) 1 applic DAILY TOP Last administered on 12/02/16t 09:38; Admin Dose 1 APPLIC; Start 09/27/16 at 09:00 Collagenase (Santyl) 1 applic PRN PRN TOP SOILED OR DISLODGED DRESSING; Start 09/27/16 at 05:00 Lansoprazole (Prevacid) 30 mg DAILY@06 GTB Last administered on 12/02/16 06:04 ; Admin Dose 30 MG; Start 09/28/16 at 06:00 Cromolyn Sodium (Nasalcrom) 1 spray QID NASAL Last administered on 12/02/16 17 :38; Admin Dose 1 SPRAY; Start 09/29/16 at 11:02 Phenol (Cepastat Lozenge) 1 lozenge Q2H PRN MT SORE THROAT Last administered on 11/02/16 01:02; Admin Dose 1 LOZENGE; Start 10/01/16 at 19:00 IV Flush (NS 10 ml) 10 ml PRN PRN IV IV PROTOCOL Last administered on 11/17/16 03:20; Admin Dose 10 ML; Start 10/02/16 at 19:00 Hydromorphone HCl (Dilaudid) 0.5 mg Q4H PRN IV PAIN Last administered on 22:31; Admin Dose 0.5 MG; Start 10/06/16 at 18:30 Potassium Chloride 20 meq 20 meq DAILY GTB Last administered on 12/02/16 09:36 ; Admin Dose 20 MEQ; Start 10/30/16 at 12:00 Meropenem (Merrem 500 Mg/ 100 ml (Pmx)) 100 ml @ 200 mls/hr Q8 IVPB Last administered on 12/02/16 13:07; Admin Dose 200 MLS/HR; Start 11/14/16 at 14:00 Acetaminophen (Tylenol Liquid) 650 mg Q6H PRN PEG PAIN AND OR ELEVATED TEMP Last administered on 11/29/16 02:34; Admin Dose 650 MG; Start 11/16/16 at 20:04 Alprazolam (Xanax) 0.5 mg Q12H PRN PEG ANXIETY Last administered on 11/20/16 05 :30; Admin Dose 0.5 MG; Start 11/16/16 at 20:30 Ascorbic Acid (Vitamin C) 500 mg BID PEG Last administered on 12/02/16 09:37; Admin Dose 500 MG; Start 11/16/16 at 21:00 Atorvastatin Calcium (Lipitor) 20 mg QHS PEG Last administered on 12/01/16 22: 20; Admin Dose 20 MG; Start 11/16/16 at 21:00 Diazepam (Valium) 10 mg DAILY PEG Last administered on 12/02/16 10:48; Admin Dose 10 MG; Start 11/17/16 at 09:00 Duloxetine HCl (Cymbalta) 20 mg DAILY PEG Last administered on 12/02/16 09:36 ; Admin Dose 20 MG; Start 11/17/16 at 09:00 Fluconazole (Diflucan) 100 mg DAILY PEG Last administered on 12/02/16 09:37; Admin Dose 100 MG; Start 11/17/16 at 09:00 Lactobacillus Acidophilus (Florajen3 Capsule) 1 each TID PEG Last administered on 12/02/16 13:05; Admin Dose 1 EACH; Start 11/16/16 at 21:00 Metronidazole (Flagyl) 500 mg Q8 PEG Last administered on 12/02/16 13:05; Admin Dose 500 MG; Start 11/16/16 at 22:00 Promethazine HCl/ Codeine (Phenergan/ Codeine) 10 ml BID PRN PEG COUGH Last administered on 11/30/16 09:36; Admin Dose 10 ML; Start 11/16/16 at 20:00 Zolpidem Tartrate (Ambien) 5 mg QHS PRN PEG INSOMNIA; Start 11/16/16 at 20:00 Docusate Sodium (Colace Liquid Cup) 100 mg Q12 PRN GTB CONSTIPATION; Start 11/16 at 20:00 Oxycodone HCl 10 mg 10 mg Q4H PO Last administered on 12/02/16 17:42; Admin Dose 10 MG; Start 11/20/16 at 17:30 Sodium Chloride (NS) 1,000 ml @ 50 mls/hr Q20H IV Last administered on 02:58; Admin Dose 50 MLS/HR; Start 11/23/16 at 04:00 Midodrine 2.5 mg 2.5 mg TID@08,,17 NGT Last administered on 12/02/16 17:39; Admin Dose 2.5 MG; Start 11/24/16 at 18:33 Vancomycin HCl (Vancocin) 100 ml @ 100 mls/hr Q12H IVPB Last administered on 17:43; Admin Dose 100 MLS/HR; Start 11/25/16 at 18:00 Furosemide (Lasix) 20 mg DAILY GTB Last administered on 12/02/16t 09:37; Admin Dose 20 MG; Start 12/01/16 at 09:00 Miscellaneous Information (*Rx Drug Level Order Reminder*) VANCOMYCIN TROUGH AT 1700 ONCE ONCE XX ; Start 12/03/16 at 17:00; Stop 12/03/16 at 17:01 ALMA ROSARIO NP Dec 02, 2016 19:02
[2016-12-02] MEDS: ATORVASTATIN 20 MG TAB PEG SCH (21:29)
--- NOTE | 2016-12-02 23:19 | CONS ---
Date/Time of Note Date/Time of Note DATE: 12/02/16 TIME: 23:18 Assessment/Plan Assessment/Plan Chief Complaint/Hosp Course Left lung squamous carcinoma. The patient is not a candidate for chemotherapy. Anemia of chronic disease. post 8 u prbc monitor blood count closely transfuse as needed to keep HB above 8 Acute respiratory insufficiency requiring BiPAP. trach -per daughter's wishes Acute shock, septic versus hypovolemic. tachycardia with episode of SVT. Chronic obstructive pulmonary disease. Dysphagia with G-tube. Continue current G-tube feeding. Hypothyroidism. Continue Synthroid. Problems: Consultation Date/Type/Reason Admit Date/Time Sep 26, 2016 at 20:07 Initial Consult Date 10/19/16 Type of Consultation: HEMEON Referring Provider: DRE LOBATO MD 24 HR Interval Summary Free Text/Dictation ALL NOTED NO NEW EVENTS Exam/Review of Systems Vital Signs Vitals Vital Signs Date Time Temp Pulse Resp B/P Pulse Ox O2 Delivery O2 Flow Rate FiO2 12/02/16 22:17 98 18 97 35 12/02/16 20:09 98.6 96/62 12/02/16 07:10 4.0 11/30/16 20:00 Mechanical Ventilator Intake and Output 12/01/16 12/01/16 12/02/16 15:00 23:00 07:00 Intake Total 1500 ml 1570 ml Output Total 1550 ml 1300 ml Balance -50 ml 270 ml Exam Constitutional: frail Head: normocephalic ENMT: other (tracheostomy) Respiratory: diminished breath sounds Cardiovascular: nl pulses Gastrointestinal: non-tender, other (G-tube), soft Extremities: normal pulses Skin: other (Multiple wounds) Results Result Diagram: 12/02/16 0612/02/16 06 Results 24 hrs Laboratory Tests Test 12/02/16 06:05 White Blood Count 15.6 H Red Blood Count 3.38 L Hemoglobin 9.2 L Hematocrit 29.2 L Mean Corpuscular Volume 86.4 Mean Corpuscular Hemoglobin 27.2 L Mean Corpuscular Hemoglobin Concent 31.5 L Red Cell Distribution Width 16.8 H Platelet Count 381 Mean Platelet Volume 8.9 Neutrophils % 73.2 Lymphocytes % 13.9 L Monocytes % 9.3 Eosinophils % 2.5 Basophils % 0.4 Nucleated Red Blood Cells % 0.0 Neutrophils # 11.4 H Lymphocytes # 2.2 Monocytes # 1.5 H Eosinophils # 0.4 Basophils # 0.1 Nucleated Red Blood Cells # 0.0 Sodium Level 133 L Potassium Level 3.6 Chloride Level 97 Carbon Dioxide Level 31 Anion Gap 9 Blood Urea Nitrogen 16 Creatinine 0.49 Glucose Level 105 Calcium Level 7.8 L Medications Medications Current Medications Ondansetron HCl (Zofran Inj) 4 mg Q6 PRN IV NAUSEA AND/OR VOMITING; Start 09/26 at 22:30 Collagenase (Santyl) 1 applic DAILY TOP Last administered on 12/02/16 09:38; Admin Dose 1 APPLIC; Start 09/27/16 at 09:00 Collagenase (Santyl) 1 applic PRN PRN TOP SOILED OR DISLODGED DRESSING; Start 09/27/16 at 05:00 Lansoprazole (Prevacid) 30 mg DAILY@06 GTB Last administered on 12/02/16 06:04 ; Admin Dose 30 MG; Start 09/28/16 at 06:00 Cromolyn Sodium (Nasalcrom) 1 spray QID NASAL Last administered on 12/02/16 21 :28; Admin Dose 1 SPRAY; Start 09/29/16 at 11:02 Phenol (Cepastat Lozenge) 1 lozenge Q2H PRN MT SORE THROAT Last administered on 11/02/16 01:02; Admin Dose 1 LOZENGE; Start 10/01/16 at 19:00 IV Flush (NS 10 ml) 10 ml PRN PRN IV IV PROTOCOL Last administered on 11/17/16 03:20; Admin Dose 10 ML; Start 10/02/16 at 19:00 Hydromorphone HCl (Dilaudid) 0.5 mg Q4H PRN IV PAIN Last administered on 22:31; Admin Dose 0.5 MG; Start 10/06/16 at 18:30 Potassium Chloride 20 meq 20 meq DAILY GTB Last administered on 12/02/16 09:36 ; Admin Dose 20 MEQ; Start 10/30/16 at 12:00 Meropenem (Merrem 500 Mg/ 100 ml (Pmx)) 100 ml @ 200 mls/hr Q8 IVPB Last administered on 12/02/16 21:28; Admin Dose 200 MLS/HR; Start 11/14/16 at 14:00 Acetaminophen (Tylenol Liquid) 650 mg Q6H PRN PEG PAIN AND OR ELEVATED TEMP Last administered on 11/29/16 02:34; Admin Dose 650 MG; Start 11/16/16 at 20:04 Alprazolam (Xanax) 0.5 mg Q12H PRN PEG ANXIETY Last administered on 11/20/16 05 :30; Admin Dose 0.5 MG; Start 11/16/16 at 20:30 Ascorbic Acid (Vitamin C) 500 mg BID PEG Last administered on 12/02/16 21:29; Admin Dose 500 MG; Start 11/16/16 at 21:00 Atorvastatin Calcium (Lipitor) 20 mg QHS PEG Last administered on 12/02/16 21: 29; Admin Dose 20 MG; Start 11/16/16 at 21:00 Diazepam (Valium) 10 mg DAILY PEG Last administered on 12/02/16 10:48; Admin Dose 10 MG; Start 11/17/16 at 09:00 Duloxetine HCl (Cymbalta) 20 mg DAILY PEG Last administered on 12/02/16 09:36 ; Admin Dose 20 MG; Start 11/17/16 at 09:00 Fluconazole (Diflucan) 100 mg DAILY PEG Last administered on 12/02/16 09:37; Admin Dose 100 MG; Start 11/17/16 at 09:00 Lactobacillus Acidophilus (Florajen3 Capsule) 1 each TID PEG Last administered on 12/02/16 21:29; Admin Dose 1 EACH; Start 11/16/16 at 21:00 Metronidazole (Flagyl) 500 mg Q8 PEG Last administered on 12/02/16 21:29; Admin Dose 500 MG; Start 11/16/16 at 22:00 Promethazine HCl/ Codeine (Phenergan/ Codeine) 10 ml BID PRN PEG COUGH Last administered on 11/30/16 09:36; Admin Dose 10 ML; Start 11/16/16 at 20:00 Zolpidem Tartrate (Ambien) 5 mg QHS PRN PEG INSOMNIA; Start 11/16/16 at 20:00 Docusate Sodium (Colace Liquid Cup) 100 mg Q12 PRN GTB CONSTIPATION; Start 11/16 at 20:00 Oxycodone HCl 10 mg 10 mg Q4H PO Last administered on 12/02/16 21:29; Admin Dose 10 MG; Start 11/20/16 at 17:30 Sodium Chloride (NS) 1,000 ml @ 50 mls/hr Q20H IV Last administered on 02:58; Admin Dose 50 MLS/HR; Start 11/23/16 at 04:00 Midodrine 2.5 mg 2.5 mg TID@08,,17 NGT Last administered on 12/02/16 17:39; Admin Dose 2.5 MG; Start 11/24/16 at 18:33 Vancomycin HCl (Vancocin) 100 ml @ 100 mls/hr Q12H IVPB Last administered on 17:43; Admin Dose 100 MLS/HR; Start 11/25/16 at 18:00 Furosemide (Lasix) 20 mg DAILY GTB Last administered on 12/02/16 09:37; Admin Dose 20 MG; Start 12/01/16 at 09:00 Miscellaneous Information (*Rx Drug Level Order Reminder*) VANCOMYCIN TROUGH AT 1700 ONCE ONCE XX ; Start 12/03/16 at 17:00; Stop 12/03/16 at 17:01 DYLLAN CARRION MD Dec 02, 2016 23:19
[2016-12-03] VITALS (23 sets, daily range): BP systolic 90–111; BP diastolic 54–77; PULSE 107–126; RESP 18–22
[2016-12-03] MEDS: SOD CHLORIDE 0.9% 1,000 ML IV SCH (00:08)
[2016-12-03] MEDS: oxyCODONE 5 MG TAB PO SCH ×6 (03:18→22:03)
[2016-12-03] MEDS: MEROPENEM 500 MG/100 ML (PMX) 100 ML IVPB SCH ×3 (06:03→22:01)
[2016-12-03] MEDS: metroNIDAZOLE 500 MG TAB PEG SCH ×3 (06:03→22:01)
[2016-12-03] MEDS: VANCOMYCIN 500MG/NS (PMX) 100 ML IVPB SCH ×2 (06:03→19:21)
[2016-12-03] MEDS: LANSOPRAZOLE 30 MG CAP GTB SCH (06:04)
[2016-12-03] MEDS: LEVOTHYROXINE 125 MCG TAB PEG SCH (06:04)
[2016-12-03] MEDS ORDERED: VITAMIN A & D 5 GM OINT PACKET TOP ONE (06:52)
[2016-12-03 07:46] LABS: ADD SCAN DIFF NO
[2016-12-03 07:49] LABS: ABNORMAL IP MESSAGE 1; BASOPHIL # 0.1 10^3/ul (0.0-0.1); BASOPHILS % 0.6 % (0.0-2.0); EOSINOPHILS # 0.3 10^3/ul (0.0-0.5); EOSINOPHILS % 1.8 % (0.0-7.0); HEMATOCRIT 28.4 % (37.0-47.0); HEMOGLOBIN 8.9 g/dl (12.0-16.0); LYMPHOCYTES # 1.8 10^3/ul (0.8-2.9); LYMPHOCYTES % 9.9 % (15.0-51.0); MEAN CORPUSCULAR HEMOGLOBIN 27.3 pg (29.0-33.0); MEAN CORPUSCULAR HGB CONC 31.3 g/dl (32.0-37.0); MEAN CORPUSCULAR VOLUME 87.1 fl (82.0-101.0); MEAN PLATELET VOLUME 9.2 fl (7.4-10.4); MONOCYTE # 1.7 10^3/ul (0.3-0.9); NEUTROPHIL # 14.3 10^3/ul (1.6-7.5); NEUTROPHILS % 77.6 % (39.0-77.0); PLATELET COUNT 369 10^3/UL (140-415); RED BLOOD COUNT 3.26 10^6/ul (4.20-5.40); WHITE BLOOD COUNT 18.4 10^3/ul (4.8-10.8)
[2016-12-03 08:08] LABS: CREATININE 0.46 mg/dl (0.44-1.00); POTASSIUM 3.3 mmol/L (3.5-5.1)
[2016-12-03] MEDS: MIDODRINE 2.5 MG TAB NGT SCH ×3 (09:14→18:27)
[2016-12-03] MEDS: POTASSIUM CHLORIDE 20 MEQ POWDER FOR ORAL SOLN GTB SCH (09:14)
[2016-12-03] MEDS: DIAZEPAM 5 MG TAB PEG SCH (09:15)
[2016-12-03] MEDS: FLUCONAZOLE 100 MG TAB PEG SCH (09:16)
[2016-12-03] MEDS: DULOXETINE 20 MG CAP DR PEG SCH (09:16)
[2016-12-03] MEDS: ASCORBIC ACID 500 MG TAB PEG SCH ×2 (09:16→22:01)
[2016-12-03] MEDS: L ACIDOPHIL/B LACTIS/B LONGUM CAPSULE PEG SCH ×3 (09:16→22:01)
[2016-12-03] MEDS: FUROSEMIDE 20 MG TAB GTB SCH (09:17)
[2016-12-03] MEDS: COLLAGENASE 30 GM TUBE TOP SCH (09:18)
[2016-12-03] MEDS: CROMOLYN 4% 26ML NAS INH NASAL SCH ×4 (09:18→22:01)
--- NOTE | 2016-12-03 11:36 | CONS ---
Date/Time of Note Date/Time of Note DATE: 12/03/16 TIME: 11:34 Assessment/Plan Assessment/Plan Additional Assessment/Plan Sepsis Respiratory failure Cardiopulmonary Arrest Hypotension, improved Acute decompensated diastolic congestive heart failure Pulmonary hypertension Preserved ejection fraction Tricuspid valve regurgitation Lung cancer SVT -Recurrent brief episodes of paroxysmal atrial tachycardia. Start low-dose beta -belinda if blood pressure permits. Maintain potassium above 4.0 and magnesium above 2.0 Consultation Date/Type/Reason Admit Date/Time Sep 26, 2016 at 20:07 Type of Consultation: cv Referring Provider: DRE LOBATO MD 24 HR Interval Summary Free Text/Dictation Patient seen and examined Exam/Review of Systems Vital Signs Vitals Vital Signs Date Time Temp Pulse Resp B/P Pulse Ox O2 Delivery O2 Flow Rate FiO2 12/03/16 11:26 98.6 127 18 95/62 100 12/03/16 09:25 35 12/02/16 07:10 4.0 11/30/16 20:00 Mechanical Ventilator Intake and Output 12/02/16 12/02/16 12/03/16 15:00 23:00 07:00 Intake Total 100 ml 900 ml 860 ml Output Total 1000 ml 1250 ml Balance 100 ml -100 ml -390 ml Exam Sleeping but arousable, no apparent distress Head: normocephalic Neck: other (Tracheostomy) Respiratory: other (Coarse breath sounds bilaterally, no wheezing) Cardiovascular: other (S1-S2 heard), regular rate and rhythm Gastrointestinal: bowel sounds, non-tender, soft Extremities: edema (Trace) Results Result Diagram: 12/03/16 0636 12/03/16 0636 Results 24 hrs Laboratory Tests Test 12/03/16 06:36 White Blood Count 18.4 H Red Blood Count 3.26 L Hemoglobin 8.9 L Hematocrit 28.4 L Mean Corpuscular Volume 87.1 Mean Corpuscular Hemoglobin 27.3 L Mean Corpuscular Hemoglobin Concent 31.3 L Red Cell Distribution Width 17.0 H Platelet Count 369 Mean Platelet Volume 9.2 Neutrophils % 77.6 H Lymphocytes % 9.9 L Monocytes % 9.0 Eosinophils % 1.8 Basophils % 0.6 Nucleated Red Blood Cells % 0.0 Neutrophils # 14.3 H Lymphocytes # 1.8 Monocytes # 1.7 H Eosinophils # 0.3 Basophils # 0.1 Nucleated Red Blood Cells # 0.0 Sodium Level 135 Potassium Level 3.3 L Chloride Level 99 Carbon Dioxide Level 29 Anion Gap 10 Blood Urea Nitrogen 15 Creatinine 0.46 Glucose Level 78 Calcium Level 8.0 L Medications Medications Current Medications Ondansetron HCl (Zofran Inj) 4 mg Q6 PRN IV NAUSEA AND/OR VOMITING; Start 09/26 at 22:30 Collagenase (Santyl) 1 applic DAILY TOP Last administered on 12/03/16 09:18; Admin Dose 1 APPLIC; Start 09/27/16 at 09:00 Collagenase (Santyl) 1 applic PRN PRN TOP SOILED OR DISLODGED DRESSING; Start 09/27/16 at 05:00 Lansoprazole (Prevacid) 30 mg DAILY@06 GTB Last administered on 12/03/16 06:04 ; Admin Dose 30 MG; Start 09/28/16 at 06:00 Cromolyn Sodium (Nasalcrom) 1 spray QID NASAL Last administered on 12/03/16 09 :18; Admin Dose 1 SPRAY; Start 09/29/16 at 11:02 Phenol (Cepastat Lozenge) 1 lozenge Q2H PRN MT SORE THROAT Last administered on 11/02/16 01:02; Admin Dose 1 LOZENGE; Start 10/01/16 at 19:00 IV Flush (NS 10 ml) 10 ml PRN PRN IV IV PROTOCOL Last administered on 11/17/16 03:20; Admin Dose 10 ML; Start 10/02/16 at 19:00 Hydromorphone HCl (Dilaudid) 0.5 mg Q4H PRN IV PAIN Last administered on 22:31; Admin Dose 0.5 MG; Start 10/06/16 at 18:30 Potassium Chloride 20 meq 20 meq DAILY GTB Last administered on 12/03/16 09:14 ; Admin Dose 20 MEQ; Start 10/30/16 at 12:00 Meropenem (Merrem 500 Mg/ 100 ml (Pmx)) 100 ml @ 200 mls/hr Q8 IVPB Last administered on 12/03/16 06:03; Admin Dose 200 MLS/HR; Start 11/14/16 at 14:00 Acetaminophen (Tylenol Liquid) 650 mg Q6H PRN PEG PAIN AND OR ELEVATED TEMP Last administered on 11/29/16 02:34; Admin Dose 650 MG; Start 11/16/16 at 20:04 Alprazolam (Xanax) 0.5 mg Q12H PRN PEG ANXIETY Last administered on 11/20/16 05 :30; Admin Dose 0.5 MG; Start 11/16/16 at 20:30 Ascorbic Acid (Vitamin C) 500 mg BID PEG Last administered on 12/03/16 09:16; Admin Dose 500 MG; Start 11/16/16 at 21:00 Atorvastatin Calcium (Lipitor) 20 mg QHS PEG Last administered on 12/02/16 21: 29; Admin Dose 20 MG; Start 11/16/16 at 21:00 Diazepam (Valium) 10 mg DAILY PEG Last administered on 12/03/16 09:15; Admin Dose 10 MG; Start 11/17/16 at 09:00 Duloxetine HCl (Cymbalta) 20 mg DAILY PEG Last administered on 12/03/16 09:16 ; Admin Dose 20 MG; Start 11/17/16 at 09:00 Fluconazole (Diflucan) 100 mg DAILY PEG Last administered on 12/03/16 09:16; Admin Dose 100 MG; Start 11/17/16 at 09:00 Lactobacillus Acidophilus (Florajen3 Capsule) 1 each TID PEG Last administered on 12/03/16 09:16; Admin Dose 1 EACH; Start 11/16/16 at 21:00 Metronidazole (Flagyl) 500 mg Q8 PEG Last administered on 12/03/16 06:03; Admin Dose 500 MG; Start 11/16/16 at 22:00 Promethazine HCl/ Codeine (Phenergan/ Codeine) 10 ml BID PRN PEG COUGH Last administered on 11/30/16 09:36; Admin Dose 10 ML; Start 11/16/16 at 20:00 Zolpidem Tartrate (Ambien) 5 mg QHS PRN PEG INSOMNIA; Start 11/16/16 at 20:00 Docusate Sodium (Colace Liquid Cup) 100 mg Q12 PRN GTB CONSTIPATION; Start 11/16 at 20:00 Oxycodone HCl 10 mg 10 mg Q4H PO Last administered on 12/03/16 09:18; Admin Dose 10 MG; Start 11/20/16 at 17:30 Sodium Chloride (NS) 1,000 ml @ 50 mls/hr Q20H IV Last administered on 00:08; Admin Dose 50 MLS/HR; Start 11/23/16 at 04:00 Midodrine 2.5 mg 2.5 mg TID@08,12,17 NGT Last administered on 12/03/16 09:14; Admin Dose 2.5 MG; Start 11/24/16 at 18:33 Vancomycin HCl (Vancocin) 100 ml @ 100 mls/hr Q12H IVPB Last administered on 06:03; Admin Dose 100 MLS/HR; Start 11/25/16 at 18:00 Furosemide (Lasix) 20 mg DAILY GTB Last administered on 12/03/16 09:17; Admin Dose 20 MG; Start 12/01/16 at 09:00 Miscellaneous Information (*Rx Drug Level Order Reminder*) VANCOMYCIN TROUGH AT 1700 ONCE ONCE XX ; Start 12/03/16 at 17:00; Stop 12/03/16 at 17:01 Artemio Tipton DO Dec 03, 2016 11:36
--- NOTE | 2016-12-03 14:27 | CONS ---
Date/Time of Note Date/Time of Note DATE: 12/03/16 TIME: 14:22 Assessment/Plan Assessment/Plan Chief Complaint/Hosp Course SUBJECTIVE: No acute events. No fever. Complains of pain. INDWELLINGS: Trach, PEG, George, PICC line. ANTIMICROBIALS: 1. Fluconazole. 2. Flagyl. 3. Vancomycin. 4. Meropenem. PHYSICAL EXAMINATION: GENERAL: Chronically ill-appearing, cachectic, elderly woman who is intubated, in no distress. HEENT: Head atraumatic, normocephalic. Sclerae anicteric. Buccal mucosa dry. NECK: Supple. CHEST: Rise symmetrical. Breath sounds diminished. HEART: S1, S2. ABDOMEN: Soft. Bowel tones hypoactive. EXTREMITIES: No cyanosis. ASSESSMENT: 1. Acute on chronic respiratory failure, status post cardiopulmonary arrest. 2. Pneumonia. 3. Lung cancer. 4. History of Clostridium difficile colitis and recurrent urinary tract infection. 5. Unstageable sacral wound, status post debridement with wound VAC application. PLAN: Continue on broad spectrum antibiotics. Local wound care. Vent per pulmonary. Continue with Hematology/Oncology recommendations. Pain Management. staff. Problems: Consultation Date/Type/Reason Admit Date/Time Sep 26, 2016 at 20:07 Initial Consult Date 11/14/16 Type of Consultation: id Referring Provider: DRE LOBATO MD Exam/Review of Systems Vital Signs Vitals Vital Signs Date Time Temp Pulse Resp B/P Pulse Ox O2 Delivery O2 Flow Rate FiO2 12/03/16 13:00 126 19 100 35 12/03/16 11:26 98.6 95/62 12/02/16 07:10 4.0 11/30/16 20:00 Mechanical Ventilator Intake and Output 12/02/16 12/02/16 12/03/16 15:00 23:00 07:00 Intake Total 100 ml 900 ml 860 ml Output Total 1000 ml 1250 ml Balance 100 ml -100 ml -390 ml Results Result Diagram: 12/03/16 0636 12/03/16 0636 Results 24 hrs Laboratory Tests Test 12/03/16 06:36 White Blood Count 18.4 H Red Blood Count 3.26 L Hemoglobin 8.9 L Hematocrit 28.4 L Mean Corpuscular Volume 87.1 Mean Corpuscular Hemoglobin 27.3 L Mean Corpuscular Hemoglobin Concent 31.3 L Red Cell Distribution Width 17.0 H Platelet Count 369 Mean Platelet Volume 9.2 Neutrophils % 77.6 H Lymphocytes % 9.9 L Monocytes % 9.0 Eosinophils % 1.8 Basophils % 0.6 Nucleated Red Blood Cells % 0.0 Neutrophils # 14.3 H Lymphocytes # 1.8 Monocytes # 1.7 H Eosinophils # 0.3 Basophils # 0.1 Nucleated Red Blood Cells # 0.0 Sodium Level 135 Potassium Level 3.3 L Chloride Level 99 Carbon Dioxide Level 29 Anion Gap 10 Blood Urea Nitrogen 15 Creatinine 0.46 Glucose Level 78 Calcium Level 8.0 L Medications Medications Current Medications Ondansetron HCl (Zofran Inj) 4 mg Q6 PRN IV NAUSEA AND/OR VOMITING; Start 09/26 at 22:30 Collagenase (Santyl) 1 applic DAILY TOP Last administered on 12/03/16 09:18; Admin Dose 1 APPLIC; Start 09/27/16 at 09:00 Collagenase (Santyl) 1 applic PRN PRN TOP SOILED OR DISLODGED DRESSING; Start 09/27/16 at 05:00 Lansoprazole (Prevacid) 30 mg DAILY@06 GTB Last administered on 12/03/16 06:04 ; Admin Dose 30 MG; Start 09/28/16 at 06:00 Cromolyn Sodium (Nasalcrom) 1 spray QID NASAL Last administered on 12/03/16 13 :11; Admin Dose 1 SPRAY; Start 09/29/16 at 11:02 Phenol (Cepastat Lozenge) 1 lozenge Q2H PRN MT SORE THROAT Last administered on 11/02/16 01:02; Admin Dose 1 LOZENGE; Start 10/01/16 at 19:00 IV Flush (NS 10 ml) 10 ml PRN PRN IV IV PROTOCOL Last administered on 11/17/16 03:20; Admin Dose 10 ML; Start 10/02/16 at 19:00 Hydromorphone HCl (Dilaudid) 0.5 mg Q4H PRN IV PAIN Last administered on 22:31; Admin Dose 0.5 MG; Start 10/06/16 at 18:30 Potassium Chloride 20 meq 20 meq DAILY GTB Last administered on 12/03/16 09:14 ; Admin Dose 20 MEQ; Start 10/30/16 at 12:00 Meropenem (Merrem 500 Mg/ 100 ml (Pmx)) 100 ml @ 200 mls/hr Q8 IVPB Last administered on 12/03/16 13:10; Admin Dose 200 MLS/HR; Start 11/14/16 at 14:00 Acetaminophen (Tylenol Liquid) 650 mg Q6H PRN PEG PAIN AND OR ELEVATED TEMP Last administered on 11/29/16 02:34; Admin Dose 650 MG; Start 11/16/16 at 20:04 Alprazolam (Xanax) 0.5 mg Q12H PRN PEG ANXIETY Last administered on 11/20/16 05 :30; Admin Dose 0.5 MG; Start 11/16/16 at 20:30 Ascorbic Acid (Vitamin C) 500 mg BID PEG Last administered on 12/03/16 09:16; Admin Dose 500 MG; Start 11/16/16 at 21:00 Atorvastatin Calcium (Lipitor) 20 mg QHS PEG Last administered on 12/02/16 21: 29; Admin Dose 20 MG; Start 11/16/16 at 21:00 Diazepam (Valium) 10 mg DAILY PEG Last administered on 12/03/16 09:15; Admin Dose 10 MG; Start 11/17/16 at 09:00 Duloxetine HCl (Cymbalta) 20 mg DAILY PEG Last administered on 12/03/16 09:16 ; Admin Dose 20 MG; Start 11/17/16 at 09:00 Fluconazole (Diflucan) 100 mg DAILY PEG Last administered on 12/03/16 09:16; Admin Dose 100 MG; Start 11/17/16 at 09:00 Lactobacillus Acidophilus (Florajen3 Capsule) 1 each TID PEG Last administered on 12/03/16 13:11; Admin Dose 1 EACH; Start 11/16/16 at 21:00 Metronidazole (Flagyl) 500 mg Q8 PEG Last administered on 12/03/16 13:11; Admin Dose 500 MG; Start 11/16/16 at 22:00 Promethazine HCl/ Codeine (Phenergan/ Codeine) 10 ml BID PRN PEG COUGH Last administered on 11/30/16 09:36; Admin Dose 10 ML; Start 11/16/16 at 20:00 Zolpidem Tartrate (Ambien) 5 mg QHS PRN PEG INSOMNIA; Start 11/16/16 at 20:00 Docusate Sodium (Colace Liquid Cup) 100 mg Q12 PRN GTB CONSTIPATION; Start 11/16 at 20:00 Oxycodone HCl 10 mg 10 mg Q4H PO Last administered on 12/03/16 13:11; Admin Dose 10 MG; Start 11/20/16 at 17:30 Sodium Chloride (NS) 1,000 ml @ 50 mls/hr Q20H IV Last administered on 00:08; Admin Dose 50 MLS/HR; Start 11/23/16 at 04:00 Midodrine 2.5 mg 2.5 mg TID@,,17 NGT Last administered on 12/03/16 13:11; Admin Dose 2.5 MG; Start 11/24/16 at 18:33 Vancomycin HCl (Vancocin) 100 ml @ 100 mls/hr Q12H IVPB Last administered on 06:03; Admin Dose 100 MLS/HR; Start 11/25/16 at 18:00 Furosemide (Lasix) 20 mg DAILY GTB Last administered on 12/03/16 09:17; Admin Dose 20 MG; Start 12/01/16 at 09:00 Miscellaneous Information (*Rx Drug Level Order Reminder*) VANCOMYCIN TROUGH AT 1700 ONCE ONCE XX ; Start 12/03/16 at 17:00; Stop 12/03/16 at 17:01 Metoprolol Tartrate (Lopressor) 12.5 mg BID PO ; Start 12/03/16 at 21:00 LAUREEN VERMA NP Dec 03, 2016 14:27
--- NOTE | 2016-12-03 14:46 | CONS ---
Date/Time of Note Date/Time of Note DATE: 12/03/16 TIME: 14:44 Assessment/Plan Assessment/Plan Additional Assessment/Plan Ventilator setting; AC of 18, tidal volume 450, PEEP of 5, 30% FiO2. Assessment recommendations; 1. Patient admitted for severe sepsis then developed respiratory failure requiring CPR resulting encephalopathy however there has been marked improvement in mentation over the last 24-48 hours. 2. Severe sepsis from sacral decubitus wounds. 3. COPD. 4. Lung malignancy. 5. Generalized deconditioning. Continue current treatment. Consultation Date/Type/Reason Admit Date/Time Sep 26, 2016 at 20:07 Initial Consult Date 11/14/16 Type of Consultation: Pulmonary Referring Provider: DRE LOBATO MD 24 HR Interval Summary Free Text/Dictation Patient's condition is stable. Mental status is markedly improved to the point where the patient is now completely awake alert and answering questions appropriately by head nodding. Patient exhibiting severe generalized muscular weakness. General exam; elderly woman, awake alert currently in no distress. On ventilator via tracheostomy. Exam/Review of Systems Vital Signs Vitals Vital Signs Date Time Temp Pulse Resp B/P Pulse Ox O2 Delivery O2 Flow Rate FiO2 12/03/16 13:00 126 19 100 35 12/03/16 11:26 98.6 95/62 12/02/16 07:10 4.0 11/30/16 20:00 Mechanical Ventilator Intake and Output 12/02/16 12/02/16 12/03/16 15:00 23:00 07:00 Intake Total 100 ml 900 ml 860 ml Output Total 1000 ml 1250 ml Balance 100 ml -100 ml -390 ml Exam HEENT examination; supple neck, no JVD. No lymphadenopathy. Midline trachea. No thyromegaly. Tracheostomy in place. Insertion site is clean. Patient has multiple carious teeth and multiple missing teeth as well. Chest examination; diminished but clear breath sound. S1-S2 audible, no murmurs. Regular rhythm. Abdomen examination; soft, nontender. No organomegaly. G-tube in place. Bowel sounds audible. Back examination; there is a dressing applied over the sacrum. Extremity examination; no peripheral edema. COURT MONITOR examination; patient awake alert and answering questions by head nodding, has severe generalized motor weakness. Results Result Diagram: 12/03/16 0636 12/03/16 0636 Results 24 hrs Laboratory Tests Test 12/03/16 06:36 White Blood Count 18.4 H Red Blood Count 3.26 L Hemoglobin 8.9 L Hematocrit 28.4 L Mean Corpuscular Volume 87.1 Mean Corpuscular Hemoglobin 27.3 L Mean Corpuscular Hemoglobin Concent 31.3 L Red Cell Distribution Width 17.0 H Platelet Count 369 Mean Platelet Volume 9.2 Neutrophils % 77.6 H Lymphocytes % 9.9 L Monocytes % 9.0 Eosinophils % 1.8 Basophils % 0.6 Nucleated Red Blood Cells % 0.0 Neutrophils # 14.3 H Lymphocytes # 1.8 Monocytes # 1.7 H Eosinophils # 0.3 Basophils # 0.1 Nucleated Red Blood Cells # 0.0 Sodium Level 135 Potassium Level 3.3 L Chloride Level 99 Carbon Dioxide Level 29 Anion Gap 10 Blood Urea Nitrogen 15 Creatinine 0.46 Glucose Level 78 Calcium Level 8.0 L Medications Medications Current Medications Ondansetron HCl (Zofran Inj) 4 mg Q6 PRN IV NAUSEA AND/OR VOMITING; Start 09/26 at 22:30 Collagenase (Santyl) 1 applic DAILY TOP Last administered on 12/03/16 09:18; Admin Dose 1 APPLIC; Start 09/27/16 at 09:00 Collagenase (Santyl) 1 applic PRN PRN TOP SOILED OR DISLODGED DRESSING; Start 09/27/16 at 05:00 Lansoprazole (Prevacid) 30 mg DAILY@06 GTB Last administered on 12/03/16 06:04 ; Admin Dose 30 MG; Start 09/28/16 at 06:00 Cromolyn Sodium (Nasalcrom) 1 spray QID NASAL Last administered on 12/03/16 13 :11; Admin Dose 1 SPRAY; Start 09/29/16 at 11:02 Phenol (Cepastat Lozenge) 1 lozenge Q2H PRN MT SORE THROAT Last administered on 11/02/16 01:02; Admin Dose 1 LOZENGE; Start 10/01/16 at 19:00 IV Flush (NS 10 ml) 10 ml PRN PRN IV IV PROTOCOL Last administered on 11/17/16 03:20; Admin Dose 10 ML; Start 10/02/16 at 19:00 Hydromorphone HCl (Dilaudid) 0.5 mg Q4H PRN IV PAIN Last administered on 22:31; Admin Dose 0.5 MG; Start 10/06/16 at 18:30 Potassium Chloride 20 meq 20 meq DAILY GTB Last administered on 12/03/16 09:14 ; Admin Dose 20 MEQ; Start 10/30/16 at 12:00 Meropenem (Merrem 500 Mg/ 100 ml (Pmx)) 100 ml @ 200 mls/hr Q8 IVPB Last administered on 12/03/16 13:10; Admin Dose 200 MLS/HR; Start 11/14/16 at 14:00 Acetaminophen (Tylenol Liquid) 650 mg Q6H PRN PEG PAIN AND OR ELEVATED TEMP Last administered on 11/29/16 02:34; Admin Dose 650 MG; Start 11/16/16 at 20:04 Alprazolam (Xanax) 0.5 mg Q12H PRN PEG ANXIETY Last administered on 11/20/16 05 :30; Admin Dose 0.5 MG; Start 11/16/16 at 20:30 Ascorbic Acid (Vitamin C) 500 mg BID PEG Last administered on 12/03/16 09:16; Admin Dose 500 MG; Start 11/16/16 at 21:00 Atorvastatin Calcium (Lipitor) 20 mg QHS PEG Last administered on 12/02/16 21: 29; Admin Dose 20 MG; Start 11/16/16 at 21:00 Diazepam (Valium) 10 mg DAILY PEG Last administered on 12/03/16 09:15; Admin Dose 10 MG; Start 11/17/16 at 09:00 Duloxetine HCl (Cymbalta) 20 mg DAILY PEG Last administered on 12/03/16 09:16 ; Admin Dose 20 MG; Start 11/17/16 at 09:00 Fluconazole (Diflucan) 100 mg DAILY PEG Last administered on 12/03/16 09:16; Admin Dose 100 MG; Start 11/17/16 at 09:00 Lactobacillus Acidophilus (Florajen3 Capsule) 1 each TID PEG Last administered on 12/03/16 13:11; Admin Dose 1 EACH; Start 11/16/16 at 21:00 Metronidazole (Flagyl) 500 mg Q8 PEG Last administered on 12/03/16 13:11; Admin Dose 500 MG; Start 11/16/16 at 22:00 Promethazine HCl/ Codeine (Phenergan/ Codeine) 10 ml BID PRN PEG COUGH Last administered on 11/30/16 09:36; Admin Dose 10 ML; Start 11/16/16 at 20:00 Zolpidem Tartrate (Ambien) 5 mg QHS PRN PEG INSOMNIA; Start 11/16/16 at 20:00 Docusate Sodium (Colace Liquid Cup) 100 mg Q12 PRN GTB CONSTIPATION; Start 11/16 at 20:00 Oxycodone HCl 10 mg 10 mg Q4H PO Last administered on 12/03/16 13:11; Admin Dose 10 MG; Start 11/20/16 at 17:30 Sodium Chloride (NS) 1,000 ml @ 50 mls/hr Q20H IV Last administered on 00:08; Admin Dose 50 MLS/HR; Start 11/23/16 at 04:00 Midodrine 2.5 mg 2.5 mg TID@08,12,17 NGT Last administered on 12/03/16 13:11; Admin Dose 2.5 MG; Start 11/24/16 at 18:33 Vancomycin HCl (Vancocin) 100 ml @ 100 mls/hr Q12H IVPB Last administered on 06:03; Admin Dose 100 MLS/HR; Start 11/25/16 at 18:00 Furosemide (Lasix) 20 mg DAILY GTB Last administered on 12/03/16 09:17; Admin Dose 20 MG; Start 12/01/16 at 09:00 Miscellaneous Information (*Rx Drug Level Order Reminder*) VANCOMYCIN TROUGH AT 1700 ONCE ONCE XX ; Start 12/03/16 at 17:00; Stop 12/03/16 at 17:01 Metoprolol Tartrate (Lopressor) 12.5 mg BID PO ; Start 12/03/16 at 21:00 REGINE BUCKLEY Dec 03, 2016 14:46
[2016-12-03] MEDS ORDERED: ALTEPLASE (CATHFLO) 2 MG INJ CATHETER ONE (17:30)
--- NOTE | 2016-12-03 17:41 | PN ---
Date/Time of Note Date/Time of Note DATE: 12/03/16 TIME: 17:38 Assessment/Plan VTE Prophylaxis VTE Prophylaxis Intervention: other Lines/Catheters IV C[facility]ter Type (from [facility]): PICC Line Urinary Cath still in place: Yes Assessment/Plan Assessment/Plan - Hypomagnesemia- No mag lab available today. Will do stat Mag level- fu. - Status post tracheostomy by Dr. White ENT on 11/28. - Status post cardiopulmonary arrest. - Septic shock, resolving. Dr. Coleman is following in infectious disease consultation. Continue antibiotics per ID. - Acute respiratory failure. Continue breathing treatment, oxygen supply supplementation and bronchodilators. Dr. Lopez is following in pulmonology consultation. - Left lung squamous carcinoma. The patient is not a candidate for chemotherapy. Dr. Calvo is following in oncology consultation. - Chronic obstructive pulmonary disease. Patient with long history of tobacco use. - Anemia of chronic disease. Continue to monitor hemoglobin and hematocrit. - Dysphagia with G-tube. Continue G-tube feeding, monitor residual. Continue aspiration precautions. - Hypothyroidism. Continue Synthroid. - Chronic pain. - Failure to thrive. Continue sequential compression device for deep venous thrombosis prophylaxis and Prevacid for peptic ulcer disease prophylaxis. Further recommendations based on clinical course. Plan of care discussed with Dr. Dozier. Exam/Review of Systems Vital Signs Vitals Vital Signs Date Time Temp Pulse Resp B/P Pulse Ox O2 Delivery O2 Flow Rate FiO2 12/03/16 16:02 98.6 122 18 103/54 98 12/03/16 13:00 35 12/02/16 07:10 4.0 11/30/16 20:00 Mechanical Ventilator Intake and Output 12/02/16 12/02/16 12/03/16 15:00 23:00 07:00 Intake Total 100 ml 900 ml 860 ml Output Total 1000 ml 1250 ml Balance 100 ml -100 ml -390 ml Exam Constitutional: alert Respiratory: clear to auscultation, normal air movement Cardiovascular: nl pulses, regular rate and rhythm Gastrointestinal: non-tender, soft Musculoskeletal: muscle weakness Skin: other Results Result Diagram: 12/03/16 0636 12/03/16 0636 Results 24 hrs Laboratory Tests Test 12/03/16 06:36 White Blood Count 18.4 H Red Blood Count 3.26 L Hemoglobin 8.9 L Hematocrit 28.4 L Mean Corpuscular Volume 87.1 Mean Corpuscular Hemoglobin 27.3 L Mean Corpuscular Hemoglobin Concent 31.3 L Red Cell Distribution Width 17.0 H Platelet Count 369 Mean Platelet Volume 9.2 Neutrophils % 77.6 H Lymphocytes % 9.9 L Monocytes % 9.0 Eosinophils % 1.8 Basophils % 0.6 Nucleated Red Blood Cells % 0.0 Neutrophils # 14.3 H Lymphocytes # 1.8 Monocytes # 1.7 H Eosinophils # 0.3 Basophils # 0.1 Nucleated Red Blood Cells # 0.0 Sodium Level 135 Potassium Level 3.3 L Chloride Level 99 Carbon Dioxide Level 29 Anion Gap 10 Blood Urea Nitrogen 15 Creatinine 0.46 Glucose Level 78 Calcium Level 8.0 L Medications Medications Current Medications Ondansetron HCl (Zofran Inj) 4 mg Q6 PRN IV NAUSEA AND/OR VOMITING; Start 09/26 at 22:30 Collagenase (Santyl) 1 applic DAILY TOP Last administered on 12/03/16 09:18; Admin Dose 1 APPLIC; Start 09/27/16 at 09:00 Collagenase (Santyl) 1 applic PRN PRN TOP SOILED OR DISLODGED DRESSING; Start 09/27/16 at 05:00 Lansoprazole (Prevacid) 30 mg DAILY@06 GTB Last administered on 12/03/16 06:04 ; Admin Dose 30 MG; Start 09/28/16 at 06:00 Cromolyn Sodium (Nasalcrom) 1 spray QID NASAL Last administered on 12/03/16 13 :11; Admin Dose 1 SPRAY; Start 09/29/16 at 11:02 Phenol (Cepastat Lozenge) 1 lozenge Q2H PRN MT SORE THROAT Last administered on 11/02/16 01:02; Admin Dose 1 LOZENGE; Start 10/01/16 at 19:00 IV Flush (NS 10 ml) 10 ml PRN PRN IV IV PROTOCOL Last administered on 11/17/16 03:20; Admin Dose 10 ML; Start 10/02/16 at 19:00 Hydromorphone HCl (Dilaudid) 0.5 mg Q4H PRN IV PAIN Last administered on 22:31; Admin Dose 0.5 MG; Start 10/06/16 at 18:30 Potassium Chloride 20 meq 20 meq DAILY GTB Last administered on 12/03/16 09:14 ; Admin Dose 20 MEQ; Start 10/30/16 at 12:00 Meropenem (Merrem 500 Mg/ 100 ml (Pmx)) 100 ml @ 200 mls/hr Q8 IVPB Last administered on 12/03/16 13:10; Admin Dose 200 MLS/HR; Start 11/14/16 at 14:00 Acetaminophen (Tylenol Liquid) 650 mg Q6H PRN PEG PAIN AND OR ELEVATED TEMP Last administered on 11/29/16 02:34; Admin Dose 650 MG; Start 11/16/16 at 20:04 Alprazolam (Xanax) 0.5 mg Q12H PRN PEG ANXIETY Last administered on 11/20/16 05 :30; Admin Dose 0.5 MG; Start 11/16/16 at 20:30 Ascorbic Acid (Vitamin C) 500 mg BID PEG Last administered on 12/03/16 09:16; Admin Dose 500 MG; Start 11/16/16 at 21:00 Atorvastatin Calcium (Lipitor) 20 mg QHS PEG Last administered on 12/02/16 21: 29; Admin Dose 20 MG; Start 11/16/16 at 21:00 Diazepam (Valium) 10 mg DAILY PEG Last administered on 12/03/16 09:15; Admin Dose 10 MG; Start 11/17/16 at 09:00 Duloxetine HCl (Cymbalta) 20 mg DAILY PEG Last administered on 12/03/16 09:16 ; Admin Dose 20 MG; Start 11/17/16 at 09:00 Fluconazole (Diflucan) 100 mg DAILY PEG Last administered on 12/03/16 09:16; Admin Dose 100 MG; Start 11/17/16 at 09:00 Lactobacillus Acidophilus (Florajen3 Capsule) 1 each TID PEG Last administered on 12/03/16 13:11; Admin Dose 1 EACH; Start 11/16/16 at 21:00 Metronidazole (Flagyl) 500 mg Q8 PEG Last administered on 12/03/16 13:11; Admin Dose 500 MG; Start 11/16/16 at 22:00 Promethazine HCl/ Codeine (Phenergan/ Codeine) 10 ml BID PRN PEG COUGH Last administered on 11/30/16 09:36; Admin Dose 10 ML; Start 11/16/16 at 20:00 Zolpidem Tartrate (Ambien) 5 mg QHS PRN PEG INSOMNIA; Start 11/16/16 at 20:00 Docusate Sodium (Colace Liquid Cup) 100 mg Q12 PRN GTB CONSTIPATION; Start 11/16 at 20:00 Oxycodone HCl 10 mg 10 mg Q4H PO Last administered on 12/03/16 13:11; Admin Dose 10 MG; Start 11/20/16 at 17:30 Sodium Chloride (NS) 1,000 ml @ 50 mls/hr Q20H IV Last administered on 00:08; Admin Dose 50 MLS/HR; Start 11/23/16 at 04:00 Midodrine 2.5 mg 2.5 mg TID@08,12,17 NGT Last administered on 12/03/16 13:11; Admin Dose 2.5 MG; Start 11/24/16 at 18:33 Vancomycin HCl (Vancocin) 100 ml @ 100 mls/hr Q12H IVPB Last administered on 06:03; Admin Dose 100 MLS/HR; Start 11/25/16 at 18:00 Furosemide (Lasix) 20 mg DAILY GTB Last administered on 12/03/16 09:17; Admin Dose 20 MG; Start 12/01/16 at 09:00 Metoprolol Tartrate 12.5 mg 12.5 mg BID PO ; Start 12/03/16 at 21:00 Potassium Chloride/Sodium Chloride (KCl/NS) 110 ml @ 55 mls/hr ONCE ONCE IVPB ; Start 12/03/16 at 18:00; Stop 12/03/16 at 19:59; Status [id number] Dec 03, 2016 17:41
[2016-12-03] MEDS ORDERED: POTASSIUM CHLORIDE 20 MEQ in SOD CHLORIDE 0.9% 100 ML IVPB ONE (18:00)
--- NOTE | 2016-12-03 20:22 | CONS ---
Date/Time of Note Date/Time of Note DATE: 12/03/16 TIME: 20:21 Assessment/Plan Assessment/Plan Chief Complaint/Hosp Course Left lung squamous carcinoma. The patient is not a candidate for chemotherapy. Anemia of chronic disease. post 8 u prbc monitor blood count closely transfuse as needed to keep HB above 8 Acute respiratory insufficiency requiring BiPAP. trach -per daughter's wishes Acute shock, septic versus hypovolemic. tachycardia with episode of SVT. Chronic obstructive pulmonary disease. Dysphagia with G-tube. Continue current G-tube feeding. Hypothyroidism. Continue Synthroid. Problems: Consultation Date/Type/Reason Admit Date/Time Sep 26, 2016 at 20:07 Initial Consult Date 10/19/16 Type of Consultation: HEMEON Referring Provider: DRE LOBATO MD 24 HR Interval Summary Free Text/Dictation ALL NOTED NO NEW EVENTS NO BLEEDING COUNT STABLE Exam/Review of Systems Vital Signs Vitals Vital Signs Date Time Temp Pulse Resp B/P Pulse Ox O2 Delivery O2 Flow Rate FiO2 12/03/16 20:01 98.2 124 18 111/77 97 12/03/16 17:20 35 12/02/16 07:10 4.0 11/30/16 20:00 Mechanical Ventilator Intake and Output 12/02/16 12/02/16 12/03/16 15:00 23:00 07:00 Intake Total 100 ml 900 ml 860 ml Output Total 1000 ml 1250 ml Balance 100 ml -100 ml -390 ml Exam Constitutional: frail Head: normocephalic ENMT: other (tracheostomy) Respiratory: diminished breath sounds Cardiovascular: nl pulses Gastrointestinal: non-tender, other (G-tube), soft Extremities: normal pulses Skin: other (Multiple wounds) Results Result Diagram: 12/03/16 0636 12/03/16 0636 Results 24 hrs Laboratory Tests Test 12/03/16 06:36 12/03/16 17:15 White Blood Count 18.4 H Red Blood Count 3.26 L Hemoglobin 8.9 L Hematocrit 28.4 L Mean Corpuscular Volume 87.1 Mean Corpuscular Hemoglobin 27.3 L Mean Corpuscular Hemoglobin Concent 31.3 L Red Cell Distribution Width 17.0 H Platelet Count 369 Mean Platelet Volume 9.2 Neutrophils % 77.6 H Lymphocytes % 9.9 L Monocytes % 9.0 Eosinophils % 1.8 Basophils % 0.6 Nucleated Red Blood Cells % 0.0 Neutrophils # 14.3 H Lymphocytes # 1.8 Monocytes # 1.7 H Eosinophils # 0.3 Basophils # 0.1 Nucleated Red Blood Cells # 0.0 Sodium Level 135 Potassium Level 3.3 L Chloride Level 99 Carbon Dioxide Level 29 Anion Gap 10 Blood Urea Nitrogen 15 Creatinine 0.46 Glucose Level 78 Calcium Level 8.0 L Magnesium Level 1.5 L Vancomycin Level Trough 13.9 Medications Medications Current Medications Ondansetron HCl (Zofran Inj) 4 mg Q6 PRN IV NAUSEA AND/OR VOMITING; Start 09/26 at 22:30 Collagenase (Santyl) 1 applic DAILY TOP Last administered on 12/03/16 09:18; Admin Dose 1 APPLIC; Start 09/27/16 at 09:00 Collagenase (Santyl) 1 applic PRN PRN TOP SOILED OR DISLODGED DRESSING; Start 09/27/16 at 05:00 Lansoprazole (Prevacid) 30 mg DAILY@06 GTB Last administered on 12/03/16 06:04 ; Admin Dose 30 MG; Start 09/28/16 at 06:00 Cromolyn Sodium (Nasalcrom) 1 spray QID NASAL Last administered on 12/03/16 18 :28; Admin Dose 1 SPRAY; Start 09/29/16 at 11:02 Phenol (Cepastat Lozenge) 1 lozenge Q2H PRN MT SORE THROAT Last administered on 11/02/16 01:02; Admin Dose 1 LOZENGE; Start 10/01/16 at 19:00 IV Flush (NS 10 ml) 10 ml PRN PRN IV IV PROTOCOL Last administered on 11/17/16 03:20; Admin Dose 10 ML; Start 10/02/16 at 19:00 Hydromorphone HCl (Dilaudid) 0.5 mg Q4H PRN IV PAIN Last administered on 22:31; Admin Dose 0.5 MG; Start 10/06/16 at 18:30 Potassium Chloride 20 meq 20 meq DAILY GTB Last administered on 12/03/16 09:14 ; Admin Dose 20 MEQ; Start 10/30/16 at 12:00 Meropenem (Merrem 500 Mg/ 100 ml (Pmx)) 100 ml @ 200 mls/hr Q8 IVPB Last administered on 12/03/16 13:10; Admin Dose 200 MLS/HR; Start 11/14/16 at 14:00 Acetaminophen (Tylenol Liquid) 650 mg Q6H PRN PEG PAIN AND OR ELEVATED TEMP Last administered on 11/29/16 02:34; Admin Dose 650 MG; Start 11/16/16 at 20:04 Alprazolam (Xanax) 0.5 mg Q12H PRN PEG ANXIETY Last administered on 11/20/16 05 :30; Admin Dose 0.5 MG; Start 11/16/16 at 20:30 Ascorbic Acid (Vitamin C) 500 mg BID PEG Last administered on 12/03/16 09:16; Admin Dose 500 MG; Start 11/16/16 at 21:00 Atorvastatin Calcium (Lipitor) 20 mg QHS PEG Last administered on 12/02/16 21: 29; Admin Dose 20 MG; Start 11/16/16 at 21:00 Diazepam (Valium) 10 mg DAILY PEG Last administered on 12/03/16 09:15; Admin Dose 10 MG; Start 11/17/16 at 09:00 Duloxetine HCl (Cymbalta) 20 mg DAILY PEG Last administered on 12/03/16 09:16 ; Admin Dose 20 MG; Start 11/17/16 at 09:00 Fluconazole (Diflucan) 100 mg DAILY PEG Last administered on 12/03/16 09:16; Admin Dose 100 MG; Start 11/17/16 at 09:00 Lactobacillus Acidophilus (Florajen3 Capsule) 1 each TID PEG Last administered on 12/03/16 13:11; Admin Dose 1 EACH; Start 11/16/16 at 21:00 Metronidazole (Flagyl) 500 mg Q8 PEG Last administered on 12/03/16 13:11; Admin Dose 500 MG; Start 11/16/16 at 22:00 Promethazine HCl/ Codeine (Phenergan/ Codeine) 10 ml BID PRN PEG COUGH Last administered on 11/30/16 09:36; Admin Dose 10 ML; Start 11/16/16 at 20:00 Zolpidem Tartrate (Ambien) 5 mg QHS PRN PEG INSOMNIA; Start 11/16/16 at 20:00 Docusate Sodium (Colace Liquid Cup) 100 mg Q12 PRN GTB CONSTIPATION; Start 11/16 at 20:00 Oxycodone HCl 10 mg 10 mg Q4H PO Last administered on 12/03/16 18:28; Admin Dose 10 MG; Start 11/20/16 at 17:30 Sodium Chloride (NS) 1,000 ml @ 50 mls/hr Q20H IV Last administered on 00:08; Admin Dose 50 MLS/HR; Start 11/23/16 at 04:00 Midodrine 2.5 mg 2.5 mg TID@08,12,17 NGT Last administered on 12/03/16 18:27; Admin Dose 2.5 MG; Start 11/24/16 at 18:33 Vancomycin HCl (Vancocin) 100 ml @ 100 mls/hr Q12H IVPB Last administered on 19:21; Admin Dose 100 MLS/HR; Start 11/25/16 at 18:00 Furosemide (Lasix) 20 mg DAILY GTB Last administered on 12/03/16 09:17; Admin Dose 20 MG; Start 12/01/16 at 09:00 Metoprolol Tartrate (Lopressor) 12.5 mg BID PO ; Start 12/03/16 at 21:00 DYLLAN CARRION MD Dec 03, 2016 20:22
--- NOTE | 2016-12-03 21:22 | CONS ---
Date/Time of Note Date/Time of Note DATE: 12/03/16 TIME: 21:21 Assessment/Plan Assessment/Plan Additional Assessment/Plan 1. acute on chronic resp failure intubated on ventilator- not able to wean off s/p Tracheostomy 2. PEA s/p resuscitation 3. Hyponatremia multifactorial 4. Pneumonia. 3. Lung cancer. 4. History of Clostridium difficile colitis and recurrent urinary tract infection. 5. Unstageable sacral wound, status post debridement with wound VAC application. PLAN: conitnue IV abx, ID following, S/p Tracheostomy making good urine K low, mag low, both replacement ordered afebrile, BP stable but HR still tachycardic will follow up Consultation Date/Type/Reason Admit Date/Time Sep 26, 2016 at 20:07 Type of Consultation: NEPHROLOGY Referring Provider: DRE LOBATO MD 24 HR Interval Summary Free Text/Dictation k low, magnesium low, afebrile, BP stable Exam/Review of Systems Vital Signs Vitals Vital Signs Date Time Temp Pulse Resp B/P Pulse Ox O2 Delivery O2 Flow Rate FiO2 12/03/16 20:01 98.2 124 18 111/77 97 12/03/16 17:20 35 12/02/16 07:10 4.0 11/30/16 20:00 Mechanical Ventilator Intake and Output 12/02/16 12/02/16 12/03/16 15:00 23:00 07:00 Intake Total 100 ml 900 ml 860 ml Output Total 1000 ml 1250 ml Balance 100 ml -100 ml -390 ml Exam GENERAL: Chronically ill-appearing, + tracheostomy HEENT: + tracheostomy NECK: Supple. CHEST: Rise symmetrical. Breath sounds diminished. HEART: S1, S2. ABDOMEN: Soft. EXTREMITIES: No cyanosis. Results Result Diagram: 12/03/16 0636 12/03/16 0636 Results 24 hrs Laboratory Tests Test 12/03/16 06:36 12/03/16 17:15 White Blood Count 18.4 H Red Blood Count 3.26 L Hemoglobin 8.9 L Hematocrit 28.4 L Mean Corpuscular Volume 87.1 Mean Corpuscular Hemoglobin 27.3 L Mean Corpuscular Hemoglobin Concent 31.3 L Red Cell Distribution Width 17.0 H Platelet Count 369 Mean Platelet Volume 9.2 Neutrophils % 77.6 H Lymphocytes % 9.9 L Monocytes % 9.0 Eosinophils % 1.8 Basophils % 0.6 Nucleated Red Blood Cells % 0.0 Neutrophils # 14.3 H Lymphocytes # 1.8 Monocytes # 1.7 H Eosinophils # 0.3 Basophils # 0.1 Nucleated Red Blood Cells # 0.0 Sodium Level 135 Potassium Level 3.3 L Chloride Level 99 Carbon Dioxide Level 29 Anion Gap 10 Blood Urea Nitrogen 15 Creatinine 0.46 Glucose Level 78 Calcium Level 8.0 L Magnesium Level 1.5 L Vancomycin Level Trough 13.9 Medications Medications Current Medications Ondansetron HCl (Zofran Inj) 4 mg Q6 PRN IV NAUSEA AND/OR VOMITING; Start 09/26 at 22:30 Collagenase (Santyl) 1 applic DAILY TOP Last administered on 12/03/16 09:18; Admin Dose 1 APPLIC; Start 09/27/16 at 09:00 Collagenase (Santyl) 1 applic PRN PRN TOP SOILED OR DISLODGED DRESSING; Start 09/27/16 at 05:00 Lansoprazole (Prevacid) 30 mg DAILY@06 GTB Last administered on 12/03/16 06:04 ; Admin Dose 30 MG; Start 09/28/16 at 06:00 Cromolyn Sodium (Nasalcrom) 1 spray QID NASAL Last administered on 12/03/16 18 :28; Admin Dose 1 SPRAY; Start 09/29/16 at 11:02 Phenol (Cepastat Lozenge) 1 lozenge Q2H PRN MT SORE THROAT Last administered on 11/02/16 01:02; Admin Dose 1 LOZENGE; Start 10/01/16 at 19:00 IV Flush (NS 10 ml) 10 ml PRN PRN IV IV PROTOCOL Last administered on 11/17/16 03:20; Admin Dose 10 ML; Start 10/02/16 at 19:00 Hydromorphone HCl (Dilaudid) 0.5 mg Q4H PRN IV PAIN Last administered on 22:31; Admin Dose 0.5 MG; Start 10/06/16 at 18:30 Potassium Chloride 20 meq 20 meq DAILY GTB Last administered on 12/03/16 09:14 ; Admin Dose 20 MEQ; Start 10/30/16 at 12:00 Meropenem (Merrem 500 Mg/ 100 ml (Pmx)) 100 ml @ 200 mls/hr Q8 IVPB Last administered on 12/03/16 13:10; Admin Dose 200 MLS/HR; Start 11/14/16 at 14:00 Acetaminophen (Tylenol Liquid) 650 mg Q6H PRN PEG PAIN AND OR ELEVATED TEMP Last administered on 11/29/16 02:34; Admin Dose 650 MG; Start 11/16/16 at 20:04 Alprazolam (Xanax) 0.5 mg Q12H PRN PEG ANXIETY Last administered on 11/20/16 05 :30; Admin Dose 0.5 MG; Start 11/16/16 at 20:30 Ascorbic Acid (Vitamin C) 500 mg BID PEG Last administered on 12/03/16 09:16; Admin Dose 500 MG; Start 11/16/16 at 21:00 Atorvastatin Calcium (Lipitor) 20 mg QHS PEG Last administered on 12/02/16 21: 29; Admin Dose 20 MG; Start 11/16/16 at 21:00 Diazepam (Valium) 10 mg DAILY PEG Last administered on 12/03/16 09:15; Admin Dose 10 MG; Start 11/17/16 at 09:00 Duloxetine HCl (Cymbalta) 20 mg DAILY PEG Last administered on 12/03/16 09:16 ; Admin Dose 20 MG; Start 11/17/16 at 09:00 Fluconazole (Diflucan) 100 mg DAILY PEG Last administered on 12/03/16 09:16; Admin Dose 100 MG; Start 11/17/16 at 09:00 Lactobacillus Acidophilus (Florajen3 Capsule) 1 each TID PEG Last administered on 12/03/16 13:11; Admin Dose 1 EACH; Start 11/16/16 at 21:00 Metronidazole (Flagyl) 500 mg Q8 PEG Last administered on 12/03/16 13:11; Admin Dose 500 MG; Start 11/16/16 at 22:00 Promethazine HCl/ Codeine (Phenergan/ Codeine) 10 ml BID PRN PEG COUGH Last administered on 11/30/16 09:36; Admin Dose 10 ML; Start 11/16/16 at 20:00 Zolpidem Tartrate (Ambien) 5 mg QHS PRN PEG INSOMNIA; Start 11/16/16 at 20:00 Docusate Sodium (Colace Liquid Cup) 100 mg Q12 PRN GTB CONSTIPATION; Start 11/16 at 20:00 Oxycodone HCl 10 mg 10 mg Q4H PO Last administered on 12/03/16 18:28; Admin Dose 10 MG; Start 11/20/16 at 17:30 Sodium Chloride (NS) 1,000 ml @ 50 mls/hr Q20H IV Last administered on 00:08; Admin Dose 50 MLS/HR; Start 11/23/16 at 04:00 Midodrine 2.5 mg 2.5 mg TID@08,12,17 NGT Last administered on 12/03/16 18:27; Admin Dose 2.5 MG; Start 11/24/16 at 18:33 Vancomycin HCl (Vancocin) 100 ml @ 100 mls/hr Q12H IVPB Last administered on 19:21; Admin Dose 100 MLS/HR; Start 11/25/16 at 18:00 Furosemide (Lasix) 20 mg DAILY GTB Last administered on 12/03/16 09:17; Admin Dose 20 MG; Start 12/01/16 at 09:00 Metoprolol Tartrate (Lopressor) 12.5 mg BID PO ; Start 12/03/16 at 21:00 DIONNE SAUCEDA MD Dec 03, 2016 21:22
[2016-12-03] MEDS ORDERED: MAGNESIUM SULFATE 1 GM/D5W 100 ML IVPB ONE (21:30)
[2016-12-03] MEDS: METOPROLOL 25 MG TAB PO SCH (22:02)
[2016-12-03] MEDS: ATORVASTATIN 20 MG TAB PEG SCH (22:02)
[2016-12-04] VITALS (24 sets, daily range): BP systolic 109–122; BP diastolic 64–85; PULSE 87–110; RESP 17–24
[2016-12-04] MEDS: SOD CHLORIDE 0.9% 1,000 ML IV SCH ×2 (01:24→20:58)
[2016-12-04] MEDS: oxyCODONE 5 MG TAB PO SCH ×6 (01:25→20:58)
[2016-12-04 05:50] LABS: ADD SCAN DIFF NO
[2016-12-04 06:22] LABS: CALCIUM 7.8 mg/dl (8.4-10.2); CREATININE 0.48 mg/dl (0.44-1.00); POTASSIUM 3.9 mmol/L (3.5-5.1)
[2016-12-04] MEDS: LANSOPRAZOLE 30 MG CAP GTB SCH (06:36)
[2016-12-04] MEDS: VANCOMYCIN 500MG/NS (PMX) 100 ML IVPB SCH ×2 (06:36→17:25)
[2016-12-04] MEDS: LEVOTHYROXINE 125 MCG TAB PEG SCH (06:36)
[2016-12-04] MEDS: MEROPENEM 500 MG/100 ML (PMX) 100 ML IVPB SCH ×2 (06:36→13:41)
[2016-12-04] MEDS: metroNIDAZOLE 500 MG TAB PEG SCH ×2 (06:37→13:41)
[2016-12-04 06:49] LABS: ABNORMAL IP MESSAGE 1; BASOPHIL # 0.1 10^3/ul (0.0-0.1); BASOPHILS % 0.5 % (0.0-2.0); EOSINOPHILS # 0.5 10^3/ul (0.0-0.5); EOSINOPHILS % 3.2 % (0.0-7.0); HEMATOCRIT 26.8 % (37.0-47.0); LYMPHOCYTES # 2.1 10^3/ul (0.8-2.9); LYMPHOCYTES % 13.1 % (15.0-51.0); MEAN CORPUSCULAR HEMOGLOBIN 26.5 pg (29.0-33.0); MEAN CORPUSCULAR HGB CONC 29.9 g/dl (32.0-37.0); MEAN CORPUSCULAR VOLUME 88.7 fl (82.0-101.0); MEAN PLATELET VOLUME 9.1 fl (7.4-10.4); MONOCYTE # 1.7 10^3/ul (0.3-0.9); MONOCYTES % 10.5 % (0.0-11.0); NEUTROPHIL # 11.6 10^3/ul (1.6-7.5); NEUTROPHILS % 72.1 % (39.0-77.0); PLATELET COUNT 345 10^3/UL (140-415); RED BLOOD COUNT 3.02 10^6/ul (4.20-5.40); WHITE BLOOD COUNT 16.1 10^3/ul (4.8-10.8)
[2016-12-04] MEDS: FUROSEMIDE 20 MG TAB GTB SCH (09:40)
[2016-12-04] MEDS: ASCORBIC ACID 500 MG TAB PEG SCH ×2 (09:40→20:58)
[2016-12-04] MEDS: DULOXETINE 20 MG CAP DR PEG SCH (09:40)
[2016-12-04] MEDS: POTASSIUM CHLORIDE 20 MEQ POWDER FOR ORAL SOLN GTB SCH (09:40)
[2016-12-04] MEDS: METOPROLOL 25 MG TAB PO SCH ×2 (09:41→20:59)
[2016-12-04] MEDS: FLUCONAZOLE 100 MG TAB PEG SCH (09:41)
[2016-12-04] MEDS: CROMOLYN 4% 26ML NAS INH NASAL SCH ×4 (09:42→20:59)
[2016-12-04] MEDS: DIAZEPAM 5 MG TAB PEG SCH (09:46)
[2016-12-04] MEDS: MIDODRINE 2.5 MG TAB NGT SCH ×3 (10:00→17:25)
[2016-12-04] MEDS: L ACIDOPHIL/B LACTIS/B LONGUM CAPSULE PEG SCH ×3 (10:00→20:58)
[2016-12-04] MEDS: COLLAGENASE 30 GM TUBE TOP SCH (10:00)
[2016-12-04] MEDS: ACETAMINOPHEN 650MG/20.3ML CUP PEG PRN (13:24)
--- NOTE | 2016-12-04 14:09 | CONS ---
Date/Time of Note Date/Time of Note DATE: 12/04/16 TIME: 14:08 Assessment/Plan Assessment/Plan Additional Assessment/Plan Sepsis Respiratory failure Cardiopulmonary Arrest Hypotension, improved Acute decompensated diastolic congestive heart failure Pulmonary hypertension Preserved ejection fraction Tricuspid valve regurgitation Lung cancer SVT -Low-dose beta-belinda started with less episodes of atrial tachycardia. Maintain potassium above 4.0 and magnesium above 2.0 Consultation Date/Type/Reason Admit Date/Time Sep 26, 2016 at 20:07 Type of Consultation: cv Referring Provider: DRE LOBATO MD 24 HR Interval Summary Free Text/Dictation Patient seen and examined Exam/Review of Systems Vital Signs Vitals Vital Signs Date Time Temp Pulse Resp B/P Pulse Ox O2 Delivery O2 Flow Rate FiO2 12/04/16 13:03 102 22 97 35 12/04/16 11:53 99.0 110/64 12/02/16 07:10 4.0 11/30/16 20:00 Mechanical Ventilator Intake and Output 12/03/16 12/03/16 12/04/16 15:00 23:00 07:00 Intake Total 900 ml 800 ml Output Total 1050 ml 1100 ml Balance -150 ml -300 ml Exam Alert, following commands, no apparent distress Head: normocephalic Neck: other (Tracheostomy) Respiratory: other (Coarse breath sounds bilaterally, no wheezing) Cardiovascular: other (S1-S2 heard), regular rate and rhythm Gastrointestinal: bowel sounds, non-tender, soft Extremities: edema Results Result Diagram: 12/04/16 0540 12/04/16 0530 Results 24 hrs Laboratory Tests Test 12/03/16 17:15 12/04/16 05:30 12/04/16 05:40 Magnesium Level 1.5 L Vancomycin Level Trough 13.9 Sodium Level 135 Potassium Level 3.9 Chloride Level 100 Carbon Dioxide Level 29 Anion Gap 10 Blood Urea Nitrogen 17 Creatinine 0.48 Glucose Level 99 Calcium Level 7.8 L White Blood Count 16.1 H Red Blood Count 3.02 L Hemoglobin 8.0 L Hematocrit 26.8 L Mean Corpuscular Volume 88.7 Mean Corpuscular Hemoglobin 26.5 L Mean Corpuscular Hemoglobin Concent 29.9 L Red Cell Distribution Width 17.0 H Platelet Count 345 Mean Platelet Volume 9.1 Neutrophils % 72.1 Lymphocytes % 13.1 L Monocytes % 10.5 Eosinophils % 3.2 Basophils % 0.5 Nucleated Red Blood Cells % 0.0 Neutrophils # 11.6 H Lymphocytes # 2.1 Monocytes # 1.7 H Eosinophils # 0.5 Basophils # 0.1 Nucleated Red Blood Cells # 0.0 Medications Medications Current Medications Ondansetron HCl (Zofran Inj) 4 mg Q6 PRN IV NAUSEA AND/OR VOMITING; Start 09/26 at 22:30 Collagenase (Santyl) 1 applic DAILY TOP Last administered on 12/04/16 10:00; Admin Dose 1 APPLIC; Start 09/27/16 at 09:00 Collagenase (Santyl) 1 applic PRN PRN TOP SOILED OR DISLODGED DRESSING; Start 09/27/16 at 05:00 Lansoprazole (Prevacid) 30 mg DAILY@06 GTB Last administered on 12/04/16 06:36 ; Admin Dose 30 MG; Start 09/28/16 at 06:00 Cromolyn Sodium (Nasalcrom) 1 spray QID NASAL Last administered on 12/04/16 13 :35; Admin Dose 1 SPRAY; Start 09/29/16 at 11:02 Phenol (Cepastat Lozenge) 1 lozenge Q2H PRN MT SORE THROAT Last administered on 11/02/16 01:02; Admin Dose 1 LOZENGE; Start 10/01/16 at 19:00 IV Flush (NS 10 ml) 10 ml PRN PRN IV IV PROTOCOL Last administered on 11/17/16 03:20; Admin Dose 10 ML; Start 10/02/16 at 19:00 Hydromorphone HCl (Dilaudid) 0.5 mg Q4H PRN IV PAIN Last administered on 22:31; Admin Dose 0.5 MG; Start 10/06/16 at 18:30 Potassium Chloride 20 meq 20 meq DAILY GTB Last administered on 12/04/16 09:40 ; Admin Dose 20 MEQ; Start 10/30/16 at 12:00 Meropenem (Merrem 500 Mg/ 100 ml (Pmx)) 100 ml @ 200 mls/hr Q8 IVPB Last administered on 12/04/16 13:41; Admin Dose 200 MLS/HR; Start 11/14/16 at 14:00 Acetaminophen (Tylenol Liquid) 650 mg Q6H PRN PEG PAIN AND OR ELEVATED TEMP Last administered on 12/04/16 13:24; Admin Dose 650 MG; Start 11/16/16 at 20:04 Alprazolam (Xanax) 0.5 mg Q12H PRN PEG ANXIETY Last administered on 11/20/16 05 :30; Admin Dose 0.5 MG; Start 11/16/16 at 20:30 Ascorbic Acid (Vitamin C) 500 mg BID PEG Last administered on 12/04/16 09:40; Admin Dose 500 MG; Start 11/16/16 at 21:00 Atorvastatin Calcium (Lipitor) 20 mg QHS PEG Last administered on 12/03/16 22: 02; Admin Dose 20 MG; Start 11/16/16 at 21:00 Diazepam (Valium) 10 mg DAILY PEG Last administered on 12/04/16 09:46; Admin Dose 10 MG; Start 11/17/16 at 09:00 Duloxetine HCl (Cymbalta) 20 mg DAILY PEG Last administered on 12/04/16 09:40 ; Admin Dose 20 MG; Start 11/17/16 at 09:00 Fluconazole (Diflucan) 100 mg DAILY PEG Last administered on 12/04/16 09:41; Admin Dose 100 MG; Start 11/17/16 at 09:00 Lactobacillus Acidophilus (Florajen3 Capsule) 1 each TID PEG Last administered on 12/04/16 13:34; Admin Dose 1 EACH; Start 11/16/16 at 21:00 Metronidazole (Flagyl) 500 mg Q8 PEG Last administered on 12/04/16 13:41; Admin Dose 500 MG; Start 11/16/16 at 22:00 Promethazine HCl/ Codeine (Phenergan/ Codeine) 10 ml BID PRN PEG COUGH Last administered on 11/30/16 09:36; Admin Dose 10 ML; Start 11/16/16 at 20:00 Zolpidem Tartrate (Ambien) 5 mg QHS PRN PEG INSOMNIA; Start 11/16/16 at 20:00 Docusate Sodium (Colace Liquid Cup) 100 mg Q12 PRN GTB CONSTIPATION; Start 11/16 at 20:00 Oxycodone HCl 10 mg 10 mg Q4H PO Last administered on 12/04/16 13:24; Admin Dose 10 MG; Start 11/20/16 at 17:30 Sodium Chloride (NS) 1,000 ml @ 50 mls/hr Q20H IV Last administered on 01:24; Admin Dose 50 MLS/HR; Start 11/23/16 at 04:00 Midodrine 2.5 mg 2.5 mg TID@08,,17 NGT Last administered on 12/04/16 13:35; Admin Dose 2.5 MG; Start 11/24/16 at 18:33 Vancomycin HCl (Vancocin) 100 ml @ 100 mls/hr Q12H IVPB Last administered on 06:36; Admin Dose 100 MLS/HR; Start 11/25/16 at 18:00 Furosemide (Lasix) 20 mg DAILY GTB Last administered on 12/04/16 09:40; Admin Dose 20 MG; Start 12/01/16 at 09:00 Metoprolol Tartrate (Lopressor) 12.5 mg BID PO Last administered on 12/04/16 09:41; Admin Dose 12.5 MG; Start 12/03/16 at 21:00 Artemio Tipton DO Dec 04, 2016 14:09
--- NOTE | 2016-12-04 14:29 | PN ---
Date/Time of Note Date/Time of Note DATE: 12/04/16 TIME: 14:28 Assessment/Plan VTE Prophylaxis VTE Prophylaxis Intervention: SCD's Lines/Catheters IV Catheter Type (from [facility]): PICC Line Central line still needed: Yes Urinary Cath still in place: Yes Reason Cath still needed: urinary retention Assessment/Plan Chief Complaint/Hosp Course Patient's continues to have low-grade fever, slightly tachycardic at times. ASSESSMENT AND PLAN: - Status post tracheostomy by Dr. White, ENT on 11/28. - Status post cardiopulmonary arrest. - Septic shock, resolving. Dr. Coleman is following in infectious disease consultation. Continue antibiotics per ID. - Acute respiratory failure. Continue breathing treatment, oxygen supply supplementation and bronchodilators. Dr. Lopez is following in pulmonology consultation. - Left lung squamous carcinoma. The patient is not a candidate for chemotherapy. Dr. Calvo is following in oncology consultation. - Chronic obstructive pulmonary disease. Patient with long history of tobacco use. - Anemia of chronic disease. Continue to monitor hemoglobin and hematocrit. - Dysphagia with G-tube. Continue G-tube feeding, monitor residual. Continue aspiration precautions. - Hypothyroidism. Continue Synthroid. - Chronic pain. - Failure to thrive. Continue sequential compression device for deep venous thrombosis prophylaxis and Prevacid for peptic ulcer disease prophylaxis. Further recommendations based on clinical course. Plan of care discussed with Dr. Dozier. Problems: Exam/Review of Systems Vital Signs Vitals Vital Signs Date Time Temp Pulse Resp B/P Pulse Ox O2 Delivery O2 Flow Rate FiO2 12/04/16 13:03 102 22 97 35 12/04/16 11:53 99.0 110/64 12/02/16 07:10 4.0 11/30/16 20:00 Mechanical Ventilator Intake and Output 12/03/16 12/03/16 12/04/16 15:00 23:00 07:00 Intake Total 900 ml 800 ml Output Total 1050 ml 1100 ml Balance -150 ml -300 ml Exam Constitutional: frail Head: normocephalic ENMT: other (tracheostomy) Respiratory: diminished breath sounds Cardiovascular: nl pulses Gastrointestinal: non-tender, other (G-tube), soft Extremities: normal pulses Skin: other (Multiple wounds) Results Result Diagram: 12/04/16 0540 12/04/16 0530 Results 24 hrs Laboratory Tests Test 12/03/16 17:15 12/04/16 05:30 12/04/16 05:40 Magnesium Level 1.5 L Vancomycin Level Trough 13.9 Sodium Level 135 Potassium Level 3.9 Chloride Level 100 Carbon Dioxide Level 29 Anion Gap 10 Blood Urea Nitrogen 17 Creatinine 0.48 Glucose Level 99 Calcium Level 7.8 L White Blood Count 16.1 H Red Blood Count 3.02 L Hemoglobin 8.0 L Hematocrit 26.8 L Mean Corpuscular Volume 88.7 Mean Corpuscular Hemoglobin 26.5 L Mean Corpuscular Hemoglobin Concent 29.9 L Red Cell Distribution Width 17.0 H Platelet Count 345 Mean Platelet Volume 9.1 Neutrophils % 72.1 Lymphocytes % 13.1 L Monocytes % 10.5 Eosinophils % 3.2 Basophils % 0.5 Nucleated Red Blood Cells % 0.0 Neutrophils # 11.6 H Lymphocytes # 2.1 Monocytes # 1.7 H Eosinophils # 0.5 Basophils # 0.1 Nucleated Red Blood Cells # 0.0 Medications Medications Current Medications Ondansetron HCl (Zofran Inj) 4 mg Q6 PRN IV NAUSEA AND/OR VOMITING; Start 09/26 at 22:30 Collagenase (Santyl) 1 applic DAILY TOP Last administered on 12/04/16 10:00; Admin Dose 1 APPLIC; Start 09/27/16 at 09:00 Collagenase (Santyl) 1 applic PRN PRN TOP SOILED OR DISLODGED DRESSING; Start 09/27/16 at 05:00 Lansoprazole (Prevacid) 30 mg DAILY@06 GTB Last administered on 12/04/16 06:36 ; Admin Dose 30 MG; Start 09/28/16 at 06:00 Cromolyn Sodium (Nasalcrom) 1 spray QID NASAL Last administered on 12/04/16 13 :35; Admin Dose 1 SPRAY; Start 09/29/16 at 11:02 Phenol (Cepastat Lozenge) 1 lozenge Q2H PRN MT SORE THROAT Last administered on 11/02/16 01:02; Admin Dose 1 LOZENGE; Start 10/01/16 at 19:00 IV Flush (NS 10 ml) 10 ml PRN PRN IV IV PROTOCOL Last administered on 11/17/16 03:20; Admin Dose 10 ML; Start 10/02/16 at 19:00 Hydromorphone HCl (Dilaudid) 0.5 mg Q4H PRN IV PAIN Last administered on 22:31; Admin Dose 0.5 MG; Start 10/06/16 at 18:30 Potassium Chloride 20 meq 20 meq DAILY GTB Last administered on 12/04/16 09:40 ; Admin Dose 20 MEQ; Start 10/30/16 at 12:00 Meropenem (Merrem 500 Mg/ 100 ml (Pmx)) 100 ml @ 200 mls/hr Q8 IVPB Last administered on 12/04/16 13:41; Admin Dose 200 MLS/HR; Start 11/14/16 at 14:00 Acetaminophen (Tylenol Liquid) 650 mg Q6H PRN PEG PAIN AND OR ELEVATED TEMP Last administered on 12/04/16 13:24; Admin Dose 650 MG; Start 11/16/16 at 20:04 Alprazolam (Xanax) 0.5 mg Q12H PRN PEG ANXIETY Last administered on 11/20/16 05 :30; Admin Dose 0.5 MG; Start 11/16/16 at 20:30 Ascorbic Acid (Vitamin C) 500 mg BID PEG Last administered on 12/04/16 09:40; Admin Dose 500 MG; Start 11/16/16 at 21:00 Atorvastatin Calcium (Lipitor) 20 mg QHS PEG Last administered on 12/03/16 22: 02; Admin Dose 20 MG; Start 11/16/16 at 21:00 Diazepam (Valium) 10 mg DAILY PEG Last administered on 12/04/16 09:46; Admin Dose 10 MG; Start 11/17/16 at 09:00 Duloxetine HCl (Cymbalta) 20 mg DAILY PEG Last administered on 12/04/16 09:40 ; Admin Dose 20 MG; Start 11/17/16 at 09:00 Fluconazole (Diflucan) 100 mg DAILY PEG Last administered on 12/04/16 09:41; Admin Dose 100 MG; Start 11/17/16 at 09:00 Lactobacillus Acidophilus (Florajen3 Capsule) 1 each TID PEG Last administered on 12/04/16 13:34; Admin Dose 1 EACH; Start 11/16/16 at 21:00 Metronidazole (Flagyl) 500 mg Q8 PEG Last administered on 12/04/16 13:41; Admin Dose 500 MG; Start 11/16/16 at 22:00 Promethazine HCl/ Codeine (Phenergan/ Codeine) 10 ml BID PRN PEG COUGH Last administered on 11/30/16 09:36; Admin Dose 10 ML; Start 11/16/16 at 20:00 Zolpidem Tartrate (Ambien) 5 mg QHS PRN PEG INSOMNIA; Start 11/16/16 at 20:00 Docusate Sodium (Colace Liquid Cup) 100 mg Q12 PRN GTB CONSTIPATION; Start 11/16 at 20:00 Oxycodone HCl 10 mg 10 mg Q4H PO Last administered on 12/04/16 13:24; Admin Dose 10 MG; Start 11/20/16 at 17:30 Sodium Chloride (NS) 1,000 ml @ 50 mls/hr Q20H IV Last administered on 01:24; Admin Dose 50 MLS/HR; Start 11/23/16 at 04:00 Midodrine 2.5 mg 2.5 mg TID@08,,17 NGT Last administered on 12/04/16 13:35; Admin Dose 2.5 MG; Start 11/24/16 at 18:33 Vancomycin HCl (Vancocin) 100 ml @ 100 mls/hr Q12H IVPB Last administered on 06:36; Admin Dose 100 MLS/HR; Start 11/25/16 at 18:00 Furosemide (Lasix) 20 mg DAILY GTB Last administered on 12/04/16 09:40; Admin Dose 20 MG; Start 12/01/16 at 09:00 Metoprolol Tartrate (Lopressor) 12.5 mg BID PO Last administered on 12/04/16 09:41; Admin Dose 12.5 MG; Start 12/03/16 at 21:00 REBECCA ISLAS Dec 04, 2016 14:29
--- NOTE | 2016-12-04 15:37 | CONS ---
Date/Time of Note Date/Time of Note DATE: 12/04/16 TIME: 15:35 Assessment/Plan Assessment/Plan Additional Assessment/Plan Ventilator setting; AC of 18, tidal volume 450, PEEP of 5, 35% FiO2. Assessment recommendations; 1. Patient admitted for severe sepsis from sacral decubitus wound, currently on broad-spectrum antibiotic coverage. 2. History of COPD. 3. Underlying lung malignancy. 4. Status post cardiac arrest with CPR. 5. Gradually improving mental status. 6. Severe emaciation. Continue current supportive care. Prognosis is very poor. Consultation Date/Type/Reason Admit Date/Time Sep 26, 2016 at 20:07 Initial Consult Date 11/14/16 Type of Consultation: Pulmonary Referring Provider: DRE LOBATO MD 24 HR Interval Summary Free Text/Dictation Patient condition is stable. Has waxing and waning mental status. Patient however has remained hemodynamically stable. General exam; elderly woman, on ventilator via tracheostomy currently in no distress. Exam/Review of Systems Vital Signs Vitals Vital Signs Date Time Temp Pulse Resp B/P Pulse Ox O2 Delivery O2 Flow Rate FiO2 12/04/16 15:17 101 21 98 35 12/04/16 11:53 99.0 110/64 12/02/16 07:10 4.0 11/30/16 20:00 Mechanical Ventilator Intake and Output 12/03/16 12/03/16 12/04/16 15:00 23:00 07:00 Intake Total 900 ml 800 ml Output Total 1050 ml 1100 ml Balance -150 ml -300 ml Exam HEENT examination; supple neck, no JVD. No lymphadenopathy. Midline trachea. No thyromegaly. Tracheostomy in place. Patient multiple carious teeth. Chest examination; diminished but clear breath sound. S1-S2 audible, no murmurs. Regular rhythm. Abdomen examination; soft, no organomegaly. Bowel sounds audible. G-tube in place. Back exam is; dressing applied over sacrum. Extremity examination; no peripheral edema. RIGGING ENGINEER examination; patient currently is unresponsive. Results Result Diagram: 12/04/16 0540 12/04/16 0530 Results 24 hrs Laboratory Tests Test 12/03/16 17:15 12/04/16 05:30 12/04/16 05:40 Magnesium Level 1.5 L Vancomycin Level Trough 13.9 Sodium Level 135 Potassium Level 3.9 Chloride Level 100 Carbon Dioxide Level 29 Anion Gap 10 Blood Urea Nitrogen 17 Creatinine 0.48 Glucose Level 99 Calcium Level 7.8 L White Blood Count 16.1 H Red Blood Count 3.02 L Hemoglobin 8.0 L Hematocrit 26.8 L Mean Corpuscular Volume 88.7 Mean Corpuscular Hemoglobin 26.5 L Mean Corpuscular Hemoglobin Concent 29.9 L Red Cell Distribution Width 17.0 H Platelet Count 345 Mean Platelet Volume 9.1 Neutrophils % 72.1 Lymphocytes % 13.1 L Monocytes % 10.5 Eosinophils % 3.2 Basophils % 0.5 Nucleated Red Blood Cells % 0.0 Neutrophils # 11.6 H Lymphocytes # 2.1 Monocytes # 1.7 H Eosinophils # 0.5 Basophils # 0.1 Nucleated Red Blood Cells # 0.0 Medications Medications Current Medications Ondansetron HCl (Zofran Inj) 4 mg Q6 PRN IV NAUSEA AND/OR VOMITING; Start 09/26 at 22:30 Collagenase (Santyl) 1 applic DAILY TOP Last administered on 12/04/16 10:00; Admin Dose 1 APPLIC; Start 09/27/16 at 09:00 Collagenase (Santyl) 1 applic PRN PRN TOP SOILED OR DISLODGED DRESSING; Start 09/27/16 at 05:00 Lansoprazole (Prevacid) 30 mg DAILY@06 GTB Last administered on 12/04/16 06:36 ; Admin Dose 30 MG; Start 09/28/16 at 06:00 Cromolyn Sodium (Nasalcrom) 1 spray QID NASAL Last administered on 12/04/16 13 :35; Admin Dose 1 SPRAY; Start 09/29/16 at 11:02 Phenol (Cepastat Lozenge) 1 lozenge Q2H PRN MT SORE THROAT Last administered on 11/02/16 01:02; Admin Dose 1 LOZENGE; Start 10/01/16 at 19:00 IV Flush (NS 10 ml) 10 ml PRN PRN IV IV PROTOCOL Last administered on 11/17/16 03:20; Admin Dose 10 ML; Start 10/02/16 at 19:00 Hydromorphone HCl (Dilaudid) 0.5 mg Q4H PRN IV PAIN Last administered on 22:31; Admin Dose 0.5 MG; Start 10/06/16 at 18:30 Potassium Chloride 20 meq 20 meq DAILY GTB Last administered on 12/04/16 09:40 ; Admin Dose 20 MEQ; Start 10/30/16 at 12:00 Meropenem (Merrem 500 Mg/ 100 ml (Pmx)) 100 ml @ 200 mls/hr Q8 IVPB Last administered on 12/04/16 13:41; Admin Dose 200 MLS/HR; Start 11/14/16 at 14:00 Acetaminophen (Tylenol Liquid) 650 mg Q6H PRN PEG PAIN AND OR ELEVATED TEMP Last administered on 12/04/16 13:24; Admin Dose 650 MG; Start 11/16/16 at 20:04 Alprazolam (Xanax) 0.5 mg Q12H PRN PEG ANXIETY Last administered on 11/20/16 05 :30; Admin Dose 0.5 MG; Start 11/16/16 at 20:30 Ascorbic Acid (Vitamin C) 500 mg BID PEG Last administered on 12/04/16 09:40; Admin Dose 500 MG; Start 11/16/16 at 21:00 Atorvastatin Calcium (Lipitor) 20 mg QHS PEG Last administered on 12/03/16 22: 02; Admin Dose 20 MG; Start 11/16/16 at 21:00 Diazepam (Valium) 10 mg DAILY PEG Last administered on 12/04/16 09:46; Admin Dose 10 MG; Start 11/17/16 at 09:00 Duloxetine HCl (Cymbalta) 20 mg DAILY PEG Last administered on 12/04/16 09:40 ; Admin Dose 20 MG; Start 11/17/16 at 09:00 Fluconazole (Diflucan) 100 mg DAILY PEG Last administered on 12/04/16 09:41; Admin Dose 100 MG; Start 11/17/16 at 09:00 Lactobacillus Acidophilus (Florajen3 Capsule) 1 each TID PEG Last administered on 12/04/16 13:34; Admin Dose 1 EACH; Start 11/16/16 at 21:00 Metronidazole (Flagyl) 500 mg Q8 PEG Last administered on 12/04/16 13:41; Admin Dose 500 MG; Start 11/16/16 at 22:00 Promethazine HCl/ Codeine (Phenergan/ Codeine) 10 ml BID PRN PEG COUGH Last administered on 11/30/16 09:36; Admin Dose 10 ML; Start 11/16/16 at 20:00 Zolpidem Tartrate (Ambien) 5 mg QHS PRN PEG INSOMNIA; Start 11/16/16 at 20:00 Docusate Sodium (Colace Liquid Cup) 100 mg Q12 PRN GTB CONSTIPATION; Start 11/16 at 20:00 Oxycodone HCl 10 mg 10 mg Q4H PO Last administered on 12/04/16 13:24; Admin Dose 10 MG; Start 11/20/16 at 17:30 Sodium Chloride (NS) 1,000 ml @ 50 mls/hr Q20H IV Last administered on 01:24; Admin Dose 50 MLS/HR; Start 11/23/16 at 04:00 Midodrine 2.5 mg 2.5 mg TID@08,,17 NGT Last administered on 12/04/16 13:35; Admin Dose 2.5 MG; Start 11/24/16 at 18:33 Vancomycin HCl (Vancocin) 100 ml @ 100 mls/hr Q12H IVPB Last administered on 06:36; Admin Dose 100 MLS/HR; Start 11/25/16 at 18:00 Furosemide (Lasix) 20 mg DAILY GTB Last administered on 12/04/16 09:40; Admin Dose 20 MG; Start 12/01/16 at 09:00 Metoprolol Tartrate (Lopressor) 12.5 mg BID PO Last administered on 12/04/16 09:41; Admin Dose 12.5 MG; Start 12/03/16 at 21:00 REGINE BUCKLEY 19, 2017 15:37
--- NOTE | 2016-12-04 18:07 | CONS ---
Date/Time of Note Date/Time of Note DATE: 12/04/16 TIME: 18:06 Assessment/Plan Assessment/Plan Additional Assessment/Plan 1. acute on chronic resp failure intubated on ventilator- not able to wean off s/p Tracheostomy 2. PEA s/p resuscitation 3. Hyponatremia multifactorial 4. Pneumonia. 3. Lung cancer. 4. History of Clostridium difficile colitis and recurrent urinary tract infection. 5. Unstageable sacral wound, status post debridement with wound VAC application. PLAN: conitnue IV abx, ID following, S/p Tracheostomy making good urine electrolytes stable will follow up Consultation Date/Type/Reason Admit Date/Time Sep 26, 2016 at 20:07 Type of Consultation: NEPHROLOG Y Referring Provider: DRE LOBATO MD Exam/Review of Systems Vital Signs Vitals Vital Signs Date Time Temp Pulse Resp B/P Pulse Ox O2 Delivery O2 Flow Rate FiO2 12/04/16 17:19 106 23 97 35 12/04/16 16:21 99.2 116/72 12/02/16 07:10 4.0 11/30/16 20:00 Mechanical Ventilator Intake and Output 12/03/16 12/03/16 12/04/16 15:00 23:00 07:00 Intake Total 900 ml 800 ml Output Total 1050 ml 1100 ml Balance -150 ml -300 ml Results Result Diagram: 12/04/16 0540 12/04/16 0530 Results 24 hrs Laboratory Tests Test 12/04/16 05:30 12/04/16 05:40 Sodium Level 135 Potassium Level 3.9 Chloride Level 100 Carbon Dioxide Level 29 Anion Gap 10 Blood Urea Nitrogen 17 Creatinine 0.48 Glucose Level 99 Calcium Level 7.8 L White Blood Count 16.1 H Red Blood Count 3.02 L Hemoglobin 8.0 L Hematocrit 26.8 L Mean Corpuscular Volume 88.7 Mean Corpuscular Hemoglobin 26.5 L Mean Corpuscular Hemoglobin Concent 29.9 L Red Cell Distribution Width 17.0 H Platelet Count 345 Mean Platelet Volume 9.1 Neutrophils % 72.1 Lymphocytes % 13.1 L Monocytes % 10.5 Eosinophils % 3.2 Basophils % 0.5 Nucleated Red Blood Cells % 0.0 Neutrophils # 11.6 H Lymphocytes # 2.1 Monocytes # 1.7 H Eosinophils # 0.5 Basophils # 0.1 Nucleated Red Blood Cells # 0.0 Medications Medications Current Medications Ondansetron HCl (Zofran Inj) 4 mg Q6 PRN IV NAUSEA AND/OR VOMITING; Start 09/26 at 22:30 Collagenase (Santyl) 1 applic DAILY TOP Last administered on 12/04/16 10:00; Admin Dose 1 APPLIC; Start 09/27/16 at 09:00 Collagenase (Santyl) 1 applic PRN PRN TOP SOILED OR DISLODGED DRESSING; Start 09/27/16 at 05:00 Lansoprazole (Prevacid) 30 mg DAILY@06 GTB Last administered on 12/04/16 06:36 ; Admin Dose 30 MG; Start 09/28/16 at 06:00 Cromolyn Sodium (Nasalcrom) 1 spray QID NASAL Last administered on 12/04/16 17 :26; Admin Dose 1 SPRAY; Start 09/29/16 at 11:02 Phenol (Cepastat Lozenge) 1 lozenge Q2H PRN MT SORE THROAT Last administered on 11/02/16 01:02; Admin Dose 1 LOZENGE; Start 10/01/16 at 19:00 IV Flush (NS 10 ml) 10 ml PRN PRN IV IV PROTOCOL Last administered on 11/17/16 03:20; Admin Dose 10 ML; Start 10/02/16 at 19:00 Hydromorphone HCl (Dilaudid) 0.5 mg Q4H PRN IV PAIN Last administered on 22:31; Admin Dose 0.5 MG; Start 10/06/16 at 18:30 Potassium Chloride 20 meq 20 meq DAILY GTB Last administered on 12/04/16 09:40 ; Admin Dose 20 MEQ; Start 10/30/16 at 12:00 Meropenem (Merrem 500 Mg/ 100 ml (Pmx)) 100 ml @ 200 mls/hr Q8 IVPB Last administered on 12/04/16 13:41; Admin Dose 200 MLS/HR; Start 11/14/16 at 14:00 Acetaminophen (Tylenol Liquid) 650 mg Q6H PRN PEG PAIN AND OR ELEVATED TEMP Last administered on 12/04/16 13:24; Admin Dose 650 MG; Start 11/16/16 at 20:04 Alprazolam (Xanax) 0.5 mg Q12H PRN PEG ANXIETY Last administered on 11/20/16 05 :30; Admin Dose 0.5 MG; Start 11/16/16 at 20:30 Ascorbic Acid (Vitamin C) 500 mg BID PEG Last administered on 12/04/16 09:40; Admin Dose 500 MG; Start 11/16/16 at 21:00 Atorvastatin Calcium (Lipitor) 20 mg QHS PEG Last administered on 12/03/16 22: 02; Admin Dose 20 MG; Start 11/16/16 at 21:00 Diazepam (Valium) 10 mg DAILY PEG Last administered on 12/04/16 09:46; Admin Dose 10 MG; Start 11/17/16 at 09:00 Duloxetine HCl (Cymbalta) 20 mg DAILY PEG Last administered on 12/04/16 09:40 ; Admin Dose 20 MG; Start 11/17/16 at 09:00 Fluconazole (Diflucan) 100 mg DAILY PEG Last administered on 12/04/16 09:41; Admin Dose 100 MG; Start 11/17/16 at 09:00 Lactobacillus Acidophilus (Florajen3 Capsule) 1 each TID PEG Last administered on 12/04/16 13:34; Admin Dose 1 EACH; Start 11/16/16 at 21:00 Metronidazole (Flagyl) 500 mg Q8 PEG Last administered on 12/04/16 13:41; Admin Dose 500 MG; Start 11/16/16 at 22:00 Promethazine HCl/ Codeine (Phenergan/ Codeine) 10 ml BID PRN PEG COUGH Last administered on 11/30/16 09:36; Admin Dose 10 ML; Start 11/16/16 at 20:00 Zolpidem Tartrate (Ambien) 5 mg QHS PRN PEG INSOMNIA; Start 11/16/16 at 20:00 Docusate Sodium (Colace Liquid Cup) 100 mg Q12 PRN GTB CONSTIPATION; Start 11/16 at 20:00 Oxycodone HCl 10 mg 10 mg Q4H PO Last administered on 12/04/16 17:26; Admin Dose 10 MG; Start 11/20/16 at 17:30 Sodium Chloride (NS) 1,000 ml @ 50 mls/hr Q20H IV Last administered on 01:24; Admin Dose 50 MLS/HR; Start 11/23/16 at 04:00 Midodrine 2.5 mg 2.5 mg TID@08,,17 NGT Last administered on 12/04/16 17:25; Admin Dose 2.5 MG; Start 11/24/16 at 18:33 Vancomycin HCl (Vancocin) 100 ml @ 100 mls/hr Q12H IVPB Last administered on 17:25; Admin Dose 100 MLS/HR; Start 11/25/16 at 18:00 Furosemide (Lasix) 20 mg DAILY GTB Last administered on 12/04/16 09:40; Admin Dose 20 MG; Start 12/01/16 at 09:00 Metoprolol Tartrate (Lopressor) 12.5 mg BID PO Last administered on 12/04/16 09:41; Admin Dose 12.5 MG; Start 12/03/16 at 21:00 DIONNE SAUCEDA MD Dec 04, 2016 18:07
--- NOTE | 2016-12-04 20:51 | CONS ---
Date/Time of Note Date/Time of Note DATE: 12/04/16 TIME: 20:49 Assessment/Plan Assessment/Plan Chief Complaint/Hosp Course SUBJECTIVE: No acute events. Alert, denies pain, No fevers. INDWELLINGS: Trach, PEG, George, PICC line. ANTIMICROBIALS: 1. Fluconazole. 2. Flagyl. 3. Vancomycin. 4. Meropenem. PHYSICAL EXAMINATION: GENERAL: Chronically ill-appearing, cachectic, elderly woman who is intubated, in no distress. HEENT: Head atraumatic, normocephalic. Sclerae anicteric. Buccal mucosa dry. NECK: Supple, some redness around trach site, no drainage. CHEST: Rise symmetrical. Breath sounds diminished. HEART: S1, S2. ABDOMEN: Soft. Bowel tones hypoactive. EXTREMITIES: No cyanosis. ASSESSMENT: 1. Acute on chronic respiratory failure, status post cardiopulmonary arrest. 2. Pneumonia. 3. Lung cancer. 4. History of Clostridium difficile colitis and recurrent urinary tract infection. 5. Unstageable sacral wound, status post debridement with wound VAC application. PLAN: Remains stable, afebrile, will dc abx and observe, repeat cx's prn, continue local wound care DW staff Problems: Consultation Date/Type/Reason Admit Date/Time Sep 26, 2016 at 20:07 Type of Consultation: ID Referring Provider: DRE LOBATO MD Exam/Review of Systems Vital Signs Vitals Vital Signs Date Time Temp Pulse Resp B/P Pulse Ox O2 Delivery O2 Flow Rate FiO2 12/04/16 20:32 98.4 124 20 122/85 96 12/04/16 19:48 35 12/02/16 07:10 4.0 11/30/16 20:00 Mechanical Ventilator Intake and Output 12/03/16 12/03/16 12/04/16 15:00 23:00 07:00 Intake Total 900 ml 800 ml Output Total 1050 ml 1100 ml Balance -150 ml -300 ml Results Result Diagram: 12/04/16 0540 12/04/16 0530 Results 24 hrs Laboratory Tests Test 12/04/16 05:30 12/04/16 05:40 Sodium Level 135 Potassium Level 3.9 Chloride Level 100 Carbon Dioxide Level 29 Anion Gap 10 Blood Urea Nitrogen 17 Creatinine 0.48 Glucose Level 99 Calcium Level 7.8 L White Blood Count 16.1 H Red Blood Count 3.02 L Hemoglobin 8.0 L Hematocrit 26.8 L Mean Corpuscular Volume 88.7 Mean Corpuscular Hemoglobin 26.5 L Mean Corpuscular Hemoglobin Concent 29.9 L Red Cell Distribution Width 17.0 H Platelet Count 345 Mean Platelet Volume 9.1 Neutrophils % 72.1 Lymphocytes % 13.1 L Monocytes % 10.5 Eosinophils % 3.2 Basophils % 0.5 Nucleated Red Blood Cells % 0.0 Neutrophils # 11.6 H Lymphocytes # 2.1 Monocytes # 1.7 H Eosinophils # 0.5 Basophils # 0.1 Nucleated Red Blood Cells # 0.0 Medications Medications Current Medications Ondansetron HCl (Zofran Inj) 4 mg Q6 PRN IV NAUSEA AND/OR VOMITING; Start 09/26 at 22:30 Collagenase (Santyl) 1 applic DAILY TOP Last administered on 12/04/16 10:00; Admin Dose 1 APPLIC; Start 09/27/16 at 09:00 Collagenase (Santyl) 1 applic PRN PRN TOP SOILED OR DISLODGED DRESSING; Start 09/27/16 at 05:00 Lansoprazole (Prevacid) 30 mg DAILY@06 GTB Last administered on 12/04/16 06:36 ; Admin Dose 30 MG; Start 09/28/16 at 06:00 Cromolyn Sodium (Nasalcrom) 1 spray QID NASAL Last administered on 12/04/16 17 :26; Admin Dose 1 SPRAY; Start 09/29/16 at 11:02 Phenol (Cepastat Lozenge) 1 lozenge Q2H PRN MT SORE THROAT Last administered on 11/02/16 01:02; Admin Dose 1 LOZENGE; Start 10/01/16 at 19:00 IV Flush (NS 10 ml) 10 ml PRN PRN IV IV PROTOCOL Last administered on 11/17/16 03:20; Admin Dose 10 ML; Start 10/02/16 at 19:00 Hydromorphone HCl (Dilaudid) 0.5 mg Q4H PRN IV PAIN Last administered on 22:31; Admin Dose 0.5 MG; Start 10/06/16 at 18:30 Potassium Chloride 20 meq 20 meq DAILY GTB Last administered on 12/04/16 09:40 ; Admin Dose 20 MEQ; Start 10/30/16 at 12:00 Meropenem (Merrem 500 Mg/ 100 ml (Pmx)) 100 ml @ 200 mls/hr Q8 IVPB Last administered on 12/04/16 13:41; Admin Dose 200 MLS/HR; Start 11/14/16 at 14:00 Acetaminophen (Tylenol Liquid) 650 mg Q6H PRN PEG PAIN AND OR ELEVATED TEMP Last administered on 12/04/16 13:24; Admin Dose 650 MG; Start 11/16/16 at 20:04 Alprazolam (Xanax) 0.5 mg Q12H PRN PEG ANXIETY Last administered on 11/20/16 05 :30; Admin Dose 0.5 MG; Start 11/16/16 at 20:30 Ascorbic Acid (Vitamin C) 500 mg BID PEG Last administered on 12/04/16 09:40; Admin Dose 500 MG; Start 11/16/16 at 21:00 Atorvastatin Calcium (Lipitor) 20 mg QHS PEG Last administered on 12/03/16 22: 02; Admin Dose 20 MG; Start 11/16/16 at 21:00 Diazepam (Valium) 10 mg DAILY PEG Last administered on 12/04/16 09:46; Admin Dose 10 MG; Start 11/17/16 at 09:00 Duloxetine HCl (Cymbalta) 20 mg DAILY PEG Last administered on 12/04/16 09:40 ; Admin Dose 20 MG; Start 11/17/16 at 09:00 Fluconazole (Diflucan) 100 mg DAILY PEG Last administered on 12/04/16 09:41; Admin Dose 100 MG; Start 11/17/16 at 09:00 Lactobacillus Acidophilus (Florajen3 Capsule) 1 each TID PEG Last administered on 12/04/16 13:34; Admin Dose 1 EACH; Start 11/16/16 at 21:00 Metronidazole (Flagyl) 500 mg Q8 PEG Last administered on 12/04/16 13:41; Admin Dose 500 MG; Start 11/16/16 at 22:00 Promethazine HCl/ Codeine (Phenergan/ Codeine) 10 ml BID PRN PEG COUGH Last administered on 11/30/16 09:36; Admin Dose 10 ML; Start 11/16/16 at 20:00 Zolpidem Tartrate (Ambien) 5 mg QHS PRN PEG INSOMNIA; Start 11/16/16 at 20:00 Docusate Sodium (Colace Liquid Cup) 100 mg Q12 PRN GTB CONSTIPATION; Start 11/16 at 20:00 Oxycodone HCl 10 mg 10 mg Q4H PO Last administered on 12/04/16 17:26; Admin Dose 10 MG; Start 11/20/16 at 17:30 Sodium Chloride (NS) 1,000 ml @ 50 mls/hr Q20H IV Last administered on 01:24; Admin Dose 50 MLS/HR; Start 11/23/16 at 04:00 Midodrine 2.5 mg 2.5 mg TID@08,,17 NGT Last administered on 12/04/16 17:25; Admin Dose 2.5 MG; Start 11/24/16 at 18:33 Vancomycin HCl (Vancocin) 100 ml @ 100 mls/hr Q12H IVPB Last administered on 17:25; Admin Dose 100 MLS/HR; Start 11/25/16 at 18:00 Furosemide (Lasix) 20 mg DAILY GTB Last administered on 12/04/16 09:40; Admin Dose 20 MG; Start 12/01/16 at 09:00 Metoprolol Tartrate (Lopressor) 12.5 mg BID PO Last administered on 12/04/16 09:41; Admin Dose 12.5 MG; Start 12/03/16 at 21:00 RUBIN MAYEN NP Dec 04, 2016 20:51
[2016-12-04] MEDS: ATORVASTATIN 20 MG TAB PEG SCH (20:58)
--- NOTE | 2016-12-04 23:19 | CONS ---
Date/Time of Note Date/Time of Note DATE: 12/04/16 TIME: 23:19 Assessment/Plan Assessment/Plan Chief Complaint/Hosp Course Left lung squamous carcinoma. The patient is not a candidate for chemotherapy. Anemia of chronic disease. post 8 u prbc monitor blood count closely transfuse as needed to keep HB above 8 Acute respiratory insufficiency requiring BiPAP. trach -per daughter's wishes Acute shock, septic versus hypovolemic. tachycardia with episode of SVT. Chronic obstructive pulmonary disease. Dysphagia with G-tube. Continue current G-tube feeding. Hypothyroidism. Continue Synthroid. Problems: Consultation Date/Type/Reason Admit Date/Time Sep 26, 2016 at 20:07 Initial Consult Date 10/19/16 Type of Consultation: HEMEON Referring Provider: DRE LOBATO MD 24 HR Interval Summary Free Text/Dictation ALL NOTED Exam/Review of Systems Vital Signs Vitals Vital Signs Date Time Temp Pulse Resp B/P Pulse Ox O2 Delivery O2 Flow Rate FiO2 12/04/16 21:09 101 18 98 35 12/04/16 20:32 98.4 122/85 12/02/16 07:10 4.0 11/30/16 20:00 Mechanical Ventilator Intake and Output 12/03/16 12/03/16 12/04/16 15:00 23:00 07:00 Intake Total 900 ml 800 ml Output Total 1050 ml 1100 ml Balance -150 ml -300 ml Exam Constitutional: frail Head: normocephalic ENMT: other (tracheostomy) Respiratory: diminished breath sounds Cardiovascular: nl pulses Gastrointestinal: non-tender, other (G-tube), soft Extremities: normal pulses Skin: other (Multiple wounds) Results Result Diagram: 12/04/16 0540 12/04/16 0530 Results 24 hrs Laboratory Tests Test 12/04/16 05:30 12/04/16 05:40 Sodium Level 135 Potassium Level 3.9 Chloride Level 100 Carbon Dioxide Level 29 Anion Gap 10 Blood Urea Nitrogen 17 Creatinine 0.48 Glucose Level 99 Calcium Level 7.8 L White Blood Count 16.1 H Red Blood Count 3.02 L Hemoglobin 8.0 L Hematocrit 26.8 L Mean Corpuscular Volume 88.7 Mean Corpuscular Hemoglobin 26.5 L Mean Corpuscular Hemoglobin Concent 29.9 L Red Cell Distribution Width 17.0 H Platelet Count 345 Mean Platelet Volume 9.1 Neutrophils % 72.1 Lymphocytes % 13.1 L Monocytes % 10.5 Eosinophils % 3.2 Basophils % 0.5 Nucleated Red Blood Cells % 0.0 Neutrophils # 11.6 H Lymphocytes # 2.1 Monocytes # 1.7 H Eosinophils # 0.5 Basophils # 0.1 Nucleated Red Blood Cells # 0.0 Medications Medications Current Medications Ondansetron HCl (Zofran Inj) 4 mg Q6 PRN IV NAUSEA AND/OR VOMITING; Start 09/26 at 22:30 Collagenase (Santyl) 1 applic DAILY TOP Last administered on 12/04/16 10:00; Admin Dose 1 APPLIC; Start 09/27/16 at 09:00 Collagenase (Santyl) 1 applic PRN PRN TOP SOILED OR DISLODGED DRESSING; Start 09/27/16 at 05:00 Lansoprazole (Prevacid) 30 mg DAILY@06 GTB Last administered on 12/04/16 06:36 ; Admin Dose 30 MG; Start 09/28/16 at 06:00 Cromolyn Sodium (Nasalcrom) 1 spray QID NASAL Last administered on 12/04/16 20 :59; Admin Dose 1 SPRAY; Start 09/29/16 at 11:02 Phenol (Cepastat Lozenge) 1 lozenge Q2H PRN MT SORE THROAT Last administered on 11/02/16 01:02; Admin Dose 1 LOZENGE; Start 10/01/16 at 19:00 IV Flush (NS 10 ml) 10 ml PRN PRN IV IV PROTOCOL Last administered on 11/17/16 03:20; Admin Dose 10 ML; Start 10/02/16 at 19:00 Hydromorphone HCl (Dilaudid) 0.5 mg Q4H PRN IV PAIN Last administered on 22:31; Admin Dose 0.5 MG; Start 10/06/16 at 18:30 Potassium Chloride (Potassium Chloride Pwd/Soln) 20 meq DAILY GTB Last administered on 12/04/16 09:40; Admin Dose 20 MEQ; Start 10/30/16 at 12:00 Acetaminophen (Tylenol Liquid) 650 mg Q6H PRN PEG PAIN AND OR ELEVATED TEMP Last administered on 12/04/16 13:24; Admin Dose 650 MG; Start 11/16/16 at 20:04 Alprazolam (Xanax) 0.5 mg Q12H PRN PEG ANXIETY Last administered on 11/20/16 05 :30; Admin Dose 0.5 MG; Start 11/16/16 at 20:30 Ascorbic Acid (Vitamin C) 500 mg BID PEG Last administered on 12/04/16 20:58; Admin Dose 500 MG; Start 11/16/16 at 21:00 Atorvastatin Calcium (Lipitor) 20 mg QHS PEG Last administered on 12/04/16 20: 58; Admin Dose 20 MG; Start 11/16/16 at 21:00 Diazepam (Valium) 10 mg DAILY PEG Last administered on 12/04/16 09:46; Admin Dose 10 MG; Start 11/17/16 at 09:00 Duloxetine HCl (Cymbalta) 20 mg DAILY PEG Last administered on 12/04/16 09:40 ; Admin Dose 20 MG; Start 11/17/16 at 09:00 Lactobacillus Acidophilus (Florajen3 Capsule) 1 each TID PEG Last administered on 12/04/16 20:58; Admin Dose 1 EACH; Start 11/16/16 at 21:00 Promethazine HCl/ Codeine (Phenergan/ Codeine) 10 ml BID PRN PEG COUGH Last administered on 11/30/16 09:36; Admin Dose 10 ML; Start 11/16/16 at 20:00 Zolpidem Tartrate (Ambien) 5 mg QHS PRN PEG INSOMNIA; Start 11/16/16 at 20:00 Docusate Sodium (Colace Liquid Cup) 100 mg Q12 PRN GTB CONSTIPATION; Start 11/16 at 20:00 Oxycodone HCl 10 mg 10 mg Q4H PO Last administered on 12/04/16 20:58; Admin Dose 10 MG; Start 11/20/16 at 17:30 Sodium Chloride (NS) 1,000 ml @ 50 mls/hr Q20H IV Last administered on 20:58; Admin Dose 50 MLS/HR; Start 11/23/16 at 04:00 Midodrine (Proamatine) 2.5 mg TID@08,12,17 NGT Last administered on 12/04/16 17:25; Admin Dose 2.5 MG; Start 6/9/17 at 18:33 Furosemide (Lasix) 20 mg DAILY GTB Last administered on 12/04/16 09:40; Admin Dose 20 MG; Start 12/01/16 at 09:00 Metoprolol Tartrate (Lopressor) 12.5 mg BID PO Last administered on 12/04/16 20:59; Admin Dose 12.5 MG; Start 12/03/16 at 21:00 DYLLAN CARRION MD Dec 04, 2016 23:19
[2016-12-05] VITALS (24 sets, daily range): BP systolic 95–109; BP diastolic 59–75; PULSE 82–121; RESP 18–25
[2016-12-05] MEDS: oxyCODONE 5 MG TAB PO SCH ×6 (01:30→21:10)
[2016-12-05 06:04] LABS: ADD SCAN DIFF NO; BASOPHIL # 0.1 10^3/ul (0.0-0.1); BASOPHILS % 0.5 % (0.0-2.0); EOSINOPHILS # 0.5 10^3/ul (0.0-0.5); EOSINOPHILS % 2.9 % (0.0-7.0); HEMATOCRIT 28.3 % (37.0-47.0); HEMOGLOBIN 8.7 g/dl (12.0-16.0); LYMPHOCYTES # 1.8 10^3/ul (0.8-2.9); LYMPHOCYTES % 10.7 % (15.0-51.0); MEAN CORPUSCULAR HEMOGLOBIN 27.1 pg (29.0-33.0); MEAN CORPUSCULAR HGB CONC 30.7 g/dl (32.0-37.0); MEAN CORPUSCULAR VOLUME 88.2 fl (82.0-101.0); MEAN PLATELET VOLUME 9.3 fl (7.4-10.4); MONOCYTE # 1.3 10^3/ul (0.3-0.9); MONOCYTES % 7.8 % (0.0-11.0); NEUTROPHIL # 13.2 10^3/ul (1.6-7.5); NEUTROPHILS % 77.3 % (39.0-77.0); PLATELET COUNT 364 10^3/UL (140-415); RED BLOOD COUNT 3.21 10^6/ul (4.20-5.40); RED CELL DISTRIBUTION WIDTH 16.5 % (11.5-14.5)
[2016-12-05] MEDS: LANSOPRAZOLE 30 MG CAP GTB SCH (06:18)
[2016-12-05] MEDS: LEVOTHYROXINE 125 MCG TAB PEG SCH (06:18)
[2016-12-05 06:32] LABS: CALCIUM 7.9 mg/dl (8.4-10.2); CREATININE 0.45 mg/dl (0.44-1.00); POTASSIUM 3.6 mmol/L (3.5-5.1)
[2016-12-05 07:00] LABS: MAGNESIUM 1.6 mg/dl (1.7-2.5); PHOSPHORUS 3.8 mg/dl (2.5-4.9)
[2016-12-05] MEDS: ACETAMINOPHEN 650MG/20.3ML CUP PEG PRN (09:09)
[2016-12-05] MEDS: FUROSEMIDE 20 MG TAB GTB SCH (09:10)
[2016-12-05] MEDS: DIAZEPAM 5 MG TAB PEG SCH (09:10)
[2016-12-05] MEDS: ASCORBIC ACID 500 MG TAB PEG SCH ×2 (09:11→21:10)
[2016-12-05] MEDS: L ACIDOPHIL/B LACTIS/B LONGUM CAPSULE PEG SCH ×3 (09:11→21:09)
[2016-12-05] MEDS: METOPROLOL 25 MG TAB PO SCH ×2 (09:11→21:12)
[2016-12-05] MEDS: CROMOLYN 4% 26ML NAS INH NASAL SCH ×4 (09:12→21:09)
[2016-12-05] MEDS: COLLAGENASE 30 GM TUBE TOP SCH (09:12)
[2016-12-05] MEDS: POTASSIUM CHLORIDE 20 MEQ POWDER FOR ORAL SOLN GTB SCH (09:16)
[2016-12-05] MEDS: DULOXETINE 20 MG CAP DR PEG SCH (09:16)
[2016-12-05] MEDS: MIDODRINE 2.5 MG TAB NGT SCH ×3 (10:37→16:37)
--- NOTE | 2016-12-05 12:47 | PN ---
DATE: 12/05/2016 SUBJECTIVE: Patient is awake, alert, looks comfortable. Denies pain. She had a low grade fever of 100.4, currently afebrile. LABORATORIES: WBC 17, H and H 8.7 and 28.3, platelets 364, neutrophils 77.3, no bands. BUN 15, cre atinine 0.45. INDWELLINGS: Trach, PEG, George, PICC line. PHYSICAL EXAMINATION: GENERAL: Fragile cachectic elderly woman who is in no distress. HEENT: Head atraumatic, normocephalic. Sclerae anicteric. Buccal mucosa dry. NECK: Supple. Tracheostomy present. CHEST: Rise symmetrical. Breath sounds diminished to bases. HEART: S1, S2. ABDOMEN: Soft, bowel tones present. EXTREMITIES: With trace dependent edema. ASSESSMENT: 1. Status post septic shock, urinary tract infection, and pneumonia. 2. Chronic respiratory failure. 3. Lung cancer. 4. History of Clostridium difficile colitis. 5. Unstageable sacral decubitus, status post debridement with wound VAC, completed 6 weeks antibiot ics. 6. Cachexia. 7. Dysphagia, status post percutaneous endoscopic gastrostomy. PLAN: The patient is off antibiotics since today. We will reculture her p.r.n. if she spikes fever above 101. Continue present care. Dictated By: RUBIN MAYEN SOLAR MANAGER for JUAN COLLIER/SANDER Conf#: [id number] DID#: [id number]
--- NOTE | 2016-12-05 15:13 | CONS ---
Date/Time of Note Date/Time of Note DATE: 12/05/16 TIME: 15:10 Assessment/Plan Assessment/Plan Additional Assessment/Plan Sepsis Respiratory failure Cardiopulmonary Arrest Hypotension, improved Acute decompensated diastolic congestive heart failure Pulmonary hypertension Preserved ejection fraction Tricuspid valve regurgitation Lung cancer SVT -Continue beta-belinda as heart rate and blood pressure permits. Maintain potassium above 4.0 and magnesium above 2.0 Consultation Date/Type/Reason Admit Date/Time Sep 26, 2016 at 20:07 Type of Consultation: cv Referring Provider: DRE LOBATO MD 24 HR Interval Summary Free Text/Dictation Patient seen and examined Exam/Review of Systems Vital Signs Vitals Vital Signs Date Time Temp Pulse Resp B/P Pulse Ox O2 Delivery O2 Flow Rate FiO2 12/05/16 13:46 98 23 99 35 12/05/16 11:50 98.1 95/63 12/02/16 07:10 4.0 Intake and Output 12/04/16 12/04/16 12/05/16 15:00 23:00 07:00 Intake Total 2000 ml 1200 ml Output Total 1000 ml 800 ml Balance 1000 ml 400 ml Exam Awake, no apparent distress Head: normocephalic Neck: other (Tracheostomy) Respiratory: other (Coarse breath sounds bilaterally) Cardiovascular: other (S1-S2 heard), regular rate and rhythm Gastrointestinal: bowel sounds, non-tender, soft Extremities: edema (Trace) Results Result Diagram: 12/05/16 0525 12/05/16 0525 Results 24 hrs Laboratory Tests Test 12/05/16 05:25 White Blood Count 17.0 H Red Blood Count 3.21 L Hemoglobin 8.7 L Hematocrit 28.3 L Mean Corpuscular Volume 88.2 Mean Corpuscular Hemoglobin 27.1 L Mean Corpuscular Hemoglobin Concent 30.7 L Red Cell Distribution Width 16.5 H Platelet Count 364 Mean Platelet Volume 9.3 Neutrophils % 77.3 H Lymphocytes % 10.7 L Monocytes % 7.8 Eosinophils % 2.9 Basophils % 0.5 Nucleated Red Blood Cells % 0.0 Neutrophils # 13.2 H Lymphocytes # 1.8 Monocytes # 1.3 H Eosinophils # 0.5 Basophils # 0.1 Nucleated Red Blood Cells # 0.0 Sodium Level 136 Potassium Level 3.6 Chloride Level 100 Carbon Dioxide Level 29 Anion Gap 11 Blood Urea Nitrogen 15 Creatinine 0.45 Glucose Level 116 Calcium Level 7.9 L Phosphorus Level 3.8 Magnesium Level 1.6 L Medications Medications Current Medications Ondansetron HCl (Zofran Inj) 4 mg Q6 PRN IV NAUSEA AND/OR VOMITING; Start 09/26 at 22:30 Collagenase (Santyl) 1 applic DAILY TOP Last administered on 12/05/16 09:12; Admin Dose 1 APPLIC; Start 09/27/16 at 09:00 Collagenase (Santyl) 1 applic PRN PRN TOP SOILED OR DISLODGED DRESSING; Start 09/27/16 at 05:00 Lansoprazole (Prevacid) 30 mg DAILY@06 GTB Last administered on 12/05/16 06:18 ; Admin Dose 30 MG; Start 09/28/16 at 06:00 Cromolyn Sodium (Nasalcrom) 1 spray QID NASAL Last administered on 12/05/16 12 :55; Admin Dose 1 SPRAY; Start 09/29/16 at 11:02 Phenol (Cepastat Lozenge) 1 lozenge Q2H PRN MT SORE THROAT Last administered on 11/02/16 01:02; Admin Dose 1 LOZENGE; Start 10/01/16 at 19:00 IV Flush (NS 10 ml) 10 ml PRN PRN IV IV PROTOCOL Last administered on 11/17/16 03:20; Admin Dose 10 ML; Start 10/02/16 at 19:00 Hydromorphone HCl (Dilaudid) 0.5 mg Q4H PRN IV PAIN Last administered on 22:31; Admin Dose 0.5 MG; Start 10/06/16 at 18:30 Potassium Chloride (Potassium Chloride Pwd/Soln) 20 meq DAILY GTB Last administered on 12/05/16 09:16; Admin Dose 20 MEQ; Start 10/30/16 at 12:00 Acetaminophen (Tylenol Liquid) 650 mg Q6H PRN PEG PAIN AND OR ELEVATED TEMP Last administered on 12/05/16 09:09; Admin Dose 650 MG; Start 11/16/16 at 20:04 Alprazolam (Xanax) 0.5 mg Q12H PRN PEG ANXIETY Last administered on 11/20/16 05 :30; Admin Dose 0.5 MG; Start 11/16/16 at 20:30 Ascorbic Acid (Vitamin C) 500 mg BID PEG Last administered on 12/05/16 09:11; Admin Dose 500 MG; Start 11/16/16 at 21:00 Atorvastatin Calcium (Lipitor) 20 mg QHS PEG Last administered on 12/04/16 20: 58; Admin Dose 20 MG; Start 11/16/16 at 21:00 Diazepam (Valium) 10 mg DAILY PEG Last administered on 12/05/16 09:10; Admin Dose 10 MG; Start 11/17/16 at 09:00 Duloxetine HCl (Cymbalta) 20 mg DAILY PEG Last administered on 12/05/16 09:16 ; Admin Dose 20 MG; Start 11/17/16 at 09:00 Lactobacillus Acidophilus (Florajen3 Capsule) 1 each TID PEG Last administered on 12/05/16 13:20; Admin Dose 1 EACH; Start 11/16/16 at 21:00 Promethazine HCl/ Codeine (Phenergan/ Codeine) 10 ml BID PRN PEG COUGH Last administered on 11/30/16 09:36; Admin Dose 10 ML; Start 11/16/16 at 20:00 Zolpidem Tartrate (Ambien) 5 mg QHS PRN PEG INSOMNIA; Start 11/16/16 at 20:00 Docusate Sodium (Colace Liquid Cup) 100 mg Q12 PRN GTB CONSTIPATION; Start 11/16 at 20:00 Oxycodone HCl 10 mg 10 mg Q4H PO Last administered on 12/05/16 14:52; Admin Dose 10 MG; Start 11/20/16 at 17:30 Sodium Chloride (NS) 1,000 ml @ 50 mls/hr Q20H IV Last administered on 20:58; Admin Dose 50 MLS/HR; Start 11/23/16 at 04:00 Midodrine (Proamatine) 2.5 mg TID@08,12,17 NGT Last administered on 12/05/16 12:54; Admin Dose 2.5 MG; Start 11/24/16 at 18:33 Furosemide (Lasix) 20 mg DAILY GTB Last administered on 12/05/16 09:10; Admin Dose 20 MG; Start 12/01/16 at 09:00 Metoprolol Tartrate (Lopressor) 12.5 mg BID PO Last administered on 12/05/16 09:11; Admin Dose 12.5 MG; Start 12/03/16 at 21:00 Artemio Tipton DO Dec 05, 2016 15:13
[2016-12-05] MEDS ORDERED: MAGNESIUM SULFATE 2 GM/50 ML 50 ML IVPB ONE (15:30)
[2016-12-05] MEDS: SOD CHLORIDE 0.9% 1,000 ML IV SCH (15:32)
--- NOTE | 2016-12-05 18:04 | PN ---
Date/Time of Note Date/Time of Note DATE: 12/05/16 TIME: 18:01 Assessment/Plan VTE Prophylaxis VTE Prophylaxis Intervention: SCD's Lines/Catheters IV Catheter Type (from [facility]): PICC Line Central line still needed: Yes Urinary Cath still in place: Yes Reason Cath still needed: urinary retention Assessment/Plan Chief Complaint/Hosp Course Patient remains relatively stable, mild tachycardia, anticipate discharge to custodial facility if patient remains stable off antibiotics. ASSESSMENT AND PLAN: - Status post tracheostomy by Dr. White, ENT on 11/28. - Status post cardiopulmonary arrest. - Septic shock, resolving. Dr. Coleman is following in infectious disease consultation. Completed the course of antibiotics. - Acute respiratory failure. Continue breathing treatment, oxygen supply supplementation and bronchodilators. Dr. Lopez is following in pulmonology consultation. - Left lung squamous carcinoma. The patient is not a candidate for chemotherapy. Dr. Calvo is following in oncology consultation. - Chronic obstructive pulmonary disease. Patient with long history of tobacco use. - Anemia of chronic disease. Continue to monitor hemoglobin and hematocrit. - Dysphagia with G-tube. Continue G-tube feeding, monitor residual. Continue aspiration precautions. - Hypothyroidism. Continue Synthroid. - Chronic pain. - Failure to thrive. Continue sequential compression device for deep venous thrombosis prophylaxis and Prevacid for peptic ulcer disease prophylaxis. Further recommendations based on clinical course. Plan of care discussed with Dr. Dozier. Problems: Exam/Review of Systems Vital Signs Vitals Vital Signs Date Time Temp Pulse Resp B/P Pulse Ox O2 Delivery O2 Flow Rate FiO2 12/05/16 17:41 108 12/05/16 17:14 22 98 35 12/05/16 15:57 98.7 100/63 12/02/16 07:10 4.0 Intake and Output 12/04/16 12/04/16 12/05/16 15:00 23:00 07:00 Intake Total 2000 ml 1200 ml Output Total 1000 ml 800 ml Balance 1000 ml 400 ml Exam Constitutional: frail Head: normocephalic ENMT: other (tracheostomy) Respiratory: diminished breath sounds Cardiovascular: nl pulses Gastrointestinal: non-tender, other (G-tube), soft Extremities: normal pulses Skin: other (Multiple wounds) Results Result Diagram: 12/05/1625 12/05/1625 Results 24 hrs Laboratory Tests Test 12/05/16 05:25 White Blood Count 17.0 H Red Blood Count 3.21 L Hemoglobin 8.7 L Hematocrit 28.3 L Mean Corpuscular Volume 88.2 Mean Corpuscular Hemoglobin 27.1 L Mean Corpuscular Hemoglobin Concent 30.7 L Red Cell Distribution Width 16.5 H Platelet Count 364 Mean Platelet Volume 9.3 Neutrophils % 77.3 H Lymphocytes % 10.7 L Monocytes % 7.8 Eosinophils % 2.9 Basophils % 0.5 Nucleated Red Blood Cells % 0.0 Neutrophils # 13.2 H Lymphocytes # 1.8 Monocytes # 1.3 H Eosinophils # 0.5 Basophils # 0.1 Nucleated Red Blood Cells # 0.0 Sodium Level 136 Potassium Level 3.6 Chloride Level 100 Carbon Dioxide Level 29 Anion Gap 11 Blood Urea Nitrogen 15 Creatinine 0.45 Glucose Level 116 Calcium Level 7.9 L Phosphorus Level 3.8 Magnesium Level 1.6 L Medications Medications Current Medications Ondansetron HCl (Zofran Inj) 4 mg Q6 PRN IV NAUSEA AND/OR VOMITING; Start 09/26 at 22:30 Collagenase (Santyl) 1 applic DAILY TOP Last administered on 12/05/16 09:12; Admin Dose 1 APPLIC; Start 09/27/16 at 09:00 Collagenase (Santyl) 1 applic PRN PRN TOP SOILED OR DISLODGED DRESSING; Start 09/27/16 at 05:00 Lansoprazole (Prevacid) 30 mg DAILY@06 GTB Last administered on 12/05/16 06:18 ; Admin Dose 30 MG; Start 09/28/16 at 06:00 Cromolyn Sodium (Nasalcrom) 1 spray QID NASAL Last administered on 12/05/16 16 :34; Admin Dose 1 SPRAY; Start 09/29/16 at 11:02 Phenol (Cepastat Lozenge) 1 lozenge Q2H PRN MT SORE THROAT Last administered on 11/02/16 01:02; Admin Dose 1 LOZENGE; Start 10/01/16 at 19:00 IV Flush (NS 10 ml) 10 ml PRN PRN IV IV PROTOCOL Last administered on 11/17/16 03:20; Admin Dose 10 ML; Start 10/02/16 at 19:00 Hydromorphone HCl (Dilaudid) 0.5 mg Q4H PRN IV PAIN Last administered on 22:31; Admin Dose 0.5 MG; Start 10/06/16 at 18:30 Potassium Chloride (Potassium Chloride Pwd/Soln) 20 meq DAILY GTB Last administered on 12/05/16 09:16; Admin Dose 20 MEQ; Start 10/30/16 at 12:00 Acetaminophen (Tylenol Liquid) 650 mg Q6H PRN PEG PAIN AND OR ELEVATED TEMP Last administered on 12/05/16 09:09; Admin Dose 650 MG; Start 11/16/16 at 20:04 Alprazolam (Xanax) 0.5 mg Q12H PRN PEG ANXIETY Last administered on 11/20/16 05 :30; Admin Dose 0.5 MG; Start 11/16/16 at 20:30 Ascorbic Acid (Vitamin C) 500 mg BID PEG Last administered on 12/05/16 09:11; Admin Dose 500 MG; Start 11/16/16 at 21:00 Atorvastatin Calcium (Lipitor) 20 mg QHS PEG Last administered on 12/04/16 20: 58; Admin Dose 20 MG; Start 11/16/16 at 21:00 Diazepam (Valium) 10 mg DAILY PEG Last administered on 12/05/16 09:10; Admin Dose 10 MG; Start 11/17/16 at 09:00 Duloxetine HCl (Cymbalta) 20 mg DAILY PEG Last administered on 12/05/16 09:16 ; Admin Dose 20 MG; Start 11/17/16 at 09:00 Lactobacillus Acidophilus (Florajen3 Capsule) 1 each TID PEG Last administered on 12/05/16 13:20; Admin Dose 1 EACH; Start 11/16/16 at 21:00 Promethazine HCl/ Codeine (Phenergan/ Codeine) 10 ml BID PRN PEG COUGH Last administered on 11/30/16 09:36; Admin Dose 10 ML; Start 11/16/16 at 20:00 Zolpidem Tartrate (Ambien) 5 mg QHS PRN PEG INSOMNIA; Start 11/16/16 at 20:00 Docusate Sodium (Colace Liquid Cup) 100 mg Q12 PRN GTB CONSTIPATION; Start 11/16 at 20:00 Oxycodone HCl 10 mg 10 mg Q4H PO Last administered on 12/05/16 14:52; Admin Dose 10 MG; Start 11/20/16 at 17:30 Sodium Chloride (NS) 1,000 ml @ 50 mls/hr Q20H IV Last administered on 20:58; Admin Dose 50 MLS/HR; Start 11/23/16 at 04:00 Midodrine (Proamatine) 2.5 mg TID@08,12,17 NGT Last administered on 12/05/16 16:37; Admin Dose 2.5 MG; Start 11/24/16 at 18:33 Furosemide (Lasix) 20 mg DAILY GTB Last administered on 12/05/16 09:10; Admin Dose 20 MG; Start 12/01/16 at 09:00 Metoprolol Tartrate (Lopressor) 12.5 mg BID PO Last administered on 12/05/16 09:11; Admin Dose 12.5 MG; Start 12/03/16 at 21:00 REBECCA ISLAS Dec 05, 2016 18:04
[2016-12-05] MEDS: ATORVASTATIN 20 MG TAB PEG SCH (21:09)
--- NOTE | 2016-12-05 21:36 | CONS ---
Date/Time of Note Date/Time of Note DATE: 12/05/16 TIME: 21:34 Assessment/Plan Assessment/Plan Additional Assessment/Plan 1. acute on chronic resp failure intubated on ventilator- not able to wean off s/p Tracheostomy 2. PEA s/p resuscitation 3. Hyponatremia multifactorial 4. Pneumonia. 3. Lung cancer. 4. History of Clostridium difficile colitis and recurrent urinary tract infection. 5. Unstageable sacral wound, status post debridement with wound VAC application. PLAN: conitnue IV abx, ID following, S/p Tracheostomy making good urine Mag low replaced for today will follow up on IV Fluids NS at 50 cc/hr - d/c it now Consultation Date/Type/Reason Admit Date/Time Sep 26, 2016 at 20:07 Type of Consultation: NEPHROLOGY Referring Provider: DRE LOBATO MD Exam/Review of Systems Vital Signs Vitals Vital Signs Date Time Temp Pulse Resp B/P Pulse Ox O2 Delivery O2 Flow Rate FiO2 12/05/16 21:24 111 18 97 35 12/05/16 20:24 100.0 103/75 12/02/16 07:10 4.0 Intake and Output 12/04/16 12/04/16 12/05/16 15:00 23:00 07:00 Intake Total 2000 ml 1200 ml Output Total 1000 ml 800 ml Balance 1000 ml 400 ml Exam GENERAL: Chronically ill-appearing, + tracheostomy HEENT: + tracheostomy NECK: Supple. CHEST: Rise symmetrical. Breath sounds diminished. HEART: S1, S2. ABDOMEN: Soft. EXTREMITIES: No cyanosis. Results Result Diagram: 12/05/16 0525 12/05/16 0525 Results 24 hrs Laboratory Tests Test 12/05/16 05:25 White Blood Count 17.0 H Red Blood Count 3.21 L Hemoglobin 8.7 L Hematocrit 28.3 L Mean Corpuscular Volume 88.2 Mean Corpuscular Hemoglobin 27.1 L Mean Corpuscular Hemoglobin Concent 30.7 L Red Cell Distribution Width 16.5 H Platelet Count 364 Mean Platelet Volume 9.3 Neutrophils % 77.3 H Lymphocytes % 10.7 L Monocytes % 7.8 Eosinophils % 2.9 Basophils % 0.5 Nucleated Red Blood Cells % 0.0 Neutrophils # 13.2 H Lymphocytes # 1.8 Monocytes # 1.3 H Eosinophils # 0.5 Basophils # 0.1 Nucleated Red Blood Cells # 0.0 Sodium Level 136 Potassium Level 3.6 Chloride Level 100 Carbon Dioxide Level 29 Anion Gap 11 Blood Urea Nitrogen 15 Creatinine 0.45 Glucose Level 116 Calcium Level 7.9 L Phosphorus Level 3.8 Magnesium Level 1.6 L Medications Medications Current Medications Ondansetron HCl (Zofran Inj) 4 mg Q6 PRN IV NAUSEA AND/OR VOMITING; Start 09/26 at 22:30 Collagenase (Santyl) 1 applic DAILY TOP Last administered on 12/05/16 09:12; Admin Dose 1 APPLIC; Start 09/27/16 at 09:00 Collagenase (Santyl) 1 applic PRN PRN TOP SOILED OR DISLODGED DRESSING; Start 09/27/16 at 05:00 Lansoprazole (Prevacid) 30 mg DAILY@06 GTB Last administered on 12/05/16 06:18 ; Admin Dose 30 MG; Start 09/28/16 at 06:00 Cromolyn Sodium (Nasalcrom) 1 spray QID NASAL Last administered on 12/05/16 21 :09; Admin Dose 1 SPRAY; Start 09/29/16 at 11:02 Phenol (Cepastat Lozenge) 1 lozenge Q2H PRN MT SORE THROAT Last administered on 11/02/16 01:02; Admin Dose 1 LOZENGE; Start 10/01/16 at 19:00 IV Flush (NS 10 ml) 10 ml PRN PRN IV IV PROTOCOL Last administered on 11/17/16 03:20; Admin Dose 10 ML; Start 10/02/16 at 19:00 Hydromorphone HCl (Dilaudid) 0.5 mg Q4H PRN IV PAIN Last administered on 22:31; Admin Dose 0.5 MG; Start 10/06/16 at 18:30 Potassium Chloride (Potassium Chloride Pwd/Soln) 20 meq DAILY GTB Last administered on 12/05/16 09:16; Admin Dose 20 MEQ; Start 10/30/16 at 12:00 Acetaminophen (Tylenol Liquid) 650 mg Q6H PRN PEG PAIN AND OR ELEVATED TEMP Last administered on 12/05/16 09:09; Admin Dose 650 MG; Start 11/16/16 at 20:04 Alprazolam (Xanax) 0.5 mg Q12H PRN PEG ANXIETY Last administered on 11/20/16 05 :30; Admin Dose 0.5 MG; Start 11/16/16 at 20:30 Ascorbic Acid (Vitamin C) 500 mg BID PEG Last administered on 12/05/16 21:10; Admin Dose 500 MG; Start 11/16/16 at 21:00 Atorvastatin Calcium (Lipitor) 20 mg QHS PEG Last administered on 12/05/16 21: 09; Admin Dose 20 MG; Start 11/16/16 at 21:00 Diazepam (Valium) 10 mg DAILY PEG Last administered on 12/05/16 09:10; Admin Dose 10 MG; Start 11/17/16 at 09:00 Duloxetine HCl (Cymbalta) 20 mg DAILY PEG Last administered on 12/05/16 09:16 ; Admin Dose 20 MG; Start 11/17/16 at 09:00 Lactobacillus Acidophilus (Florajen3 Capsule) 1 each TID PEG Last administered on 12/05/16 21:09; Admin Dose 1 EACH; Start 11/16/16 at 21:00 Promethazine HCl/ Codeine (Phenergan/ Codeine) 10 ml BID PRN PEG COUGH Last administered on 11/30/16 09:36; Admin Dose 10 ML; Start 11/16/16 at 20:00 Zolpidem Tartrate (Ambien) 5 mg QHS PRN PEG INSOMNIA; Start 11/16/16 at 20:00 Docusate Sodium (Colace Liquid Cup) 100 mg Q12 PRN GTB CONSTIPATION; Start 11/16 at 20:00 Oxycodone HCl 10 mg 10 mg Q4H PO Last administered on 12/05/16 21:10; Admin Dose 10 MG; Start 11/20/16 at 17:30 Sodium Chloride (NS) 1,000 ml @ 50 mls/hr Q20H IV Last administered on 20:58; Admin Dose 50 MLS/HR; Start 11/23/16 at 04:00 Midodrine (Proamatine) 2.5 mg TID@08,12,17 NGT Last administered on 12/05/16 16:37; Admin Dose 2.5 MG; Start 11/24/16 at 18:33 Furosemide (Lasix) 20 mg DAILY GTB Last administered on 12/05/16 09:10; Admin Dose 20 MG; Start 12/01/16 at 09:00 Metoprolol Tartrate (Lopressor) 12.5 mg BID PO Last administered on 12/05/16 21:12; Admin Dose 12.5 MG; Start 12/03/16 at 21:00 DIONNE SAUCEDA MD Dec 05, 2016 21:36
--- NOTE | 2016-12-05 21:48 | CONS ---
Date/Time of Note Date/Time of Note DATE: 12/05/16 TIME: 21:47 Assessment/Plan Assessment/Plan Chief Complaint/Hosp Course Left lung squamous carcinoma. The patient is not a candidate for chemotherapy. Anemia of chronic disease. post 10 u prbc monitor blood count closely transfuse as needed to keep HB above 8 Acute respiratory insufficiency requiring BiPAP. trach -per daughter's wishes Acute shock, septic versus hypovolemic. tachycardia with episode of SVT. Chronic obstructive pulmonary disease. Dysphagia with G-tube. Continue current G-tube feeding. Hypothyroidism. Continue Synthroid. Problems: Consultation Date/Type/Reason Admit Date/Time Sep 26, 2016 at 20:07 Initial Consult Date 10/19/16 Type of Consultation: HEMEON Referring Provider: DRE LOBATO MD 24 HR Interval Summary Free Text/Dictation ALL NOTED Exam/Review of Systems Vital Signs Vitals Vital Signs Date Time Temp Pulse Resp B/P Pulse Ox O2 Delivery O2 Flow Rate FiO2 12/05/16 21:24 111 18 97 35 12/05/16 20:24 100.0 103/75 12/02/16 07:10 4.0 Intake and Output 12/04/16 12/04/16 12/05/16 15:00 23:00 07:00 Intake Total 2000 ml 1200 ml Output Total 1000 ml 800 ml Balance 1000 ml 400 ml Exam Constitutional: frail Head: normocephalic ENMT: other (tracheostomy) Respiratory: diminished breath sounds Cardiovascular: nl pulses Gastrointestinal: non-tender, other (G-tube), soft Extremities: normal pulses Skin: other (Multiple wounds) Results Result Diagram: 12/05/16 0525 12/05/16 0525 Results 24 hrs Laboratory Tests Test 12/05/16 05:25 White Blood Count 17.0 H Red Blood Count 3.21 L Hemoglobin 8.7 L Hematocrit 28.3 L Mean Corpuscular Volume 88.2 Mean Corpuscular Hemoglobin 27.1 L Mean Corpuscular Hemoglobin Concent 30.7 L Red Cell Distribution Width 16.5 H Platelet Count 364 Mean Platelet Volume 9.3 Neutrophils % 77.3 H Lymphocytes % 10.7 L Monocytes % 7.8 Eosinophils % 2.9 Basophils % 0.5 Nucleated Red Blood Cells % 0.0 Neutrophils # 13.2 H Lymphocytes # 1.8 Monocytes # 1.3 H Eosinophils # 0.5 Basophils # 0.1 Nucleated Red Blood Cells # 0.0 Sodium Level 136 Potassium Level 3.6 Chloride Level 100 Carbon Dioxide Level 29 Anion Gap 11 Blood Urea Nitrogen 15 Creatinine 0.45 Glucose Level 116 Calcium Level 7.9 L Phosphorus Level 3.8 Magnesium Level 1.6 L Medications Medications Current Medications Ondansetron HCl (Zofran Inj) 4 mg Q6 PRN IV NAUSEA AND/OR VOMITING; Start 09/26 at 22:30 Collagenase (Santyl) 1 applic DAILY TOP Last administered on 12/05/16 09:12; Admin Dose 1 APPLIC; Start 09/27/16 at 09:00 Collagenase (Santyl) 1 applic PRN PRN TOP SOILED OR DISLODGED DRESSING; Start 09/27/16 at 05:00 Lansoprazole (Prevacid) 30 mg DAILY@06 GTB Last administered on 12/05/16 06:18 ; Admin Dose 30 MG; Start 09/28/16 at 06:00 Cromolyn Sodium (Nasalcrom) 1 spray QID NASAL Last administered on 12/05/16 21 :09; Admin Dose 1 SPRAY; Start 09/29/16 at 11:02 Phenol (Cepastat Lozenge) 1 lozenge Q2H PRN MT SORE THROAT Last administered on 11/02/16 01:02; Admin Dose 1 LOZENGE; Start 10/01/16 at 19:00 IV Flush (NS 10 ml) 10 ml PRN PRN IV IV PROTOCOL Last administered on 11/17/16 03:20; Admin Dose 10 ML; Start 10/02/16 at 19:00 Hydromorphone HCl (Dilaudid) 0.5 mg Q4H PRN IV PAIN Last administered on 22:31; Admin Dose 0.5 MG; Start 10/06/16 at 18:30 Potassium Chloride (Potassium Chloride Pwd/Soln) 20 meq DAILY GTB Last administered on 12/05/16 09:16; Admin Dose 20 MEQ; Start 10/30/16 at 12:00 Acetaminophen (Tylenol Liquid) 650 mg Q6H PRN PEG PAIN AND OR ELEVATED TEMP Last administered on 12/05/16 09:09; Admin Dose 650 MG; Start 11/16/16 at 20:04 Alprazolam (Xanax) 0.5 mg Q12H PRN PEG ANXIETY Last administered on 11/20/16 05 :30; Admin Dose 0.5 MG; Start 11/16/16 at 20:30 Ascorbic Acid (Vitamin C) 500 mg BID PEG Last administered on 12/05/16 21:10; Admin Dose 500 MG; Start 11/16/16 at 21:00 Atorvastatin Calcium (Lipitor) 20 mg QHS PEG Last administered on 12/05/16 21: 09; Admin Dose 20 MG; Start 11/16/16 at 21:00 Diazepam (Valium) 10 mg DAILY PEG Last administered on 12/05/16 09:10; Admin Dose 10 MG; Start 11/17/16 at 09:00 Duloxetine HCl (Cymbalta) 20 mg DAILY PEG Last administered on 12/05/16 09:16 ; Admin Dose 20 MG; Start 11/17/16 at 09:00 Lactobacillus Acidophilus (Florajen3 Capsule) 1 each TID PEG Last administered on 12/05/16 21:09; Admin Dose 1 EACH; Start 11/16/16 at 21:00 Promethazine HCl/ Codeine (Phenergan/ Codeine) 10 ml BID PRN PEG COUGH Last administered on 11/30/16 09:36; Admin Dose 10 ML; Start 11/16/16 at 20:00 Zolpidem Tartrate (Ambien) 5 mg QHS PRN PEG INSOMNIA; Start 11/16/16 at 20:00 Docusate Sodium (Colace Liquid Cup) 100 mg Q12 PRN GTB CONSTIPATION; Start 11/16 at 20:00 Oxycodone HCl (Roxicodone) 10 mg Q4H PO Last administered on 12/05/16 21:10; Admin Dose 10 MG; Start 11/20/16 at 17:30 Midodrine (Proamatine) 2.5 mg TID@08,12,17 NGT Last administered on 12/05/16 16:37; Admin Dose 2.5 MG; Start 11/24/16 at 18:33 Furosemide (Lasix) 20 mg DAILY GTB Last administered on 12/05/16 09:10; Admin Dose 20 MG; Start 12/01/16 at 09:00 Metoprolol Tartrate (Lopressor) 12.5 mg BID PO Last administered on 12/05/16t 21:12; Admin Dose 12.5 MG; Start 12/03/16 at 21:00 DYLLAN CARRION MD Dec 05, 2016 21:48
[2016-12-06] VITALS (23 sets, daily range): BP systolic 91–110; BP diastolic 56–70; PULSE 83–110; RESP 15–21
[2016-12-06] MEDS: oxyCODONE 5 MG TAB PO SCH ×6 (01:44→21:15)
[2016-12-06] MEDS: ACETAMINOPHEN 650MG/20.3ML CUP PEG PRN ×2 (01:57→17:30)
[2016-12-06] MEDS: LANSOPRAZOLE 30 MG CAP GTB SCH (05:36)
[2016-12-06] MEDS: LEVOTHYROXINE 125 MCG TAB PEG SCH (07:22)
[2016-12-06] MEDS: MIDODRINE 2.5 MG TAB NGT SCH ×3 (07:27→17:31)
[2016-12-06 08:27] LABS: CALCIUM 7.7 mg/dl (8.4-10.2); CREATININE 0.44 mg/dl (0.44-1.00); POTASSIUM 4.1 mmol/L (3.5-5.1)
[2016-12-06] MEDS: DULOXETINE 20 MG CAP DR PEG SCH (08:31)
[2016-12-06] MEDS: DIAZEPAM 5 MG TAB PEG SCH (08:31)
[2016-12-06] MEDS: POTASSIUM CHLORIDE 20 MEQ POWDER FOR ORAL SOLN GTB SCH (08:31)
[2016-12-06] MEDS: L ACIDOPHIL/B LACTIS/B LONGUM CAPSULE PEG SCH ×3 (08:31→21:14)
[2016-12-06] MEDS: FUROSEMIDE 20 MG TAB GTB SCH (08:32)
[2016-12-06] MEDS: METOPROLOL 25 MG TAB PO SCH ×2 (08:32→21:00)
[2016-12-06] MEDS: ASCORBIC ACID 500 MG TAB PEG SCH ×2 (08:32→21:15)
[2016-12-06] MEDS: COLLAGENASE 30 GM TUBE TOP SCH (08:33)
[2016-12-06] MEDS: CROMOLYN 4% 26ML NAS INH NASAL SCH ×4 (08:33→21:14)
--- NOTE | 2016-12-06 11:40 | CONS ---
Date/Time of Note Date/Time of Note DATE: 12/06/16 TIME: 11:36 Assessment/Plan Assessment/Plan Additional Assessment/Plan Sepsis Respiratory failure Cardiopulmonary Arrest Hypotension, improved Acute decompensated diastolic congestive heart failure Pulmonary hypertension Preserved ejection fraction Tricuspid valve regurgitation Lung cancer SVT -Continue beta-belinda as heart rate and blood pressure permits. Continue Lasix as blood pressure renal function permits. Maintain potassium above 4.0 and magnesium above 2.0, holding parameters on Midodrine. Consultation Date/Type/Reason Admit Date/Time Sep 26, 2016 at 20:07 Type of Consultation: cv Referring Provider: DRE LOBATO MD 24 HR Interval Summary Free Text/Dictation Patient seen and examined Exam/Review of Systems Vital Signs Vitals Vital Signs Date Time Temp Pulse Resp B/P Pulse Ox O2 Delivery O2 Flow Rate FiO2 12/06/16 08:56 87 12/06/16 07:36 97.4 16 110/58 98 Mechanical Ventilator 12/06/16 07:33 35 12/02/16 07:10 4.0 Intake and Output 12/05/16 12/05/16 12/06/16 15:00 23:00 07:00 Intake Total 1300 ml 774 ml Output Total 1900 ml 850 ml Balance -600 ml -76 ml Exam Sleeping, no apparent distress Head: normocephalic Neck: other (Tracheostomy) Respiratory: other (Coarse breath sounds bilaterally, no wheezing) Cardiovascular: other (S1-S2 heard), regular rate and rhythm Gastrointestinal: bowel sounds, non-tender, soft Extremities: edema Results Result Diagram: 12/05/16 0525 12/06/16 0627 Results 24 hrs Laboratory Tests Test 12/06/16 06:27 Sodium Level 135 Potassium Level 4.1 Chloride Level 100 Carbon Dioxide Level 28 Anion Gap 11 Blood Urea Nitrogen 17 Creatinine 0.44 Glucose Level 101 Calcium Level 7.7 L Medications Medications Current Medications Ondansetron HCl (Zofran Inj) 4 mg Q6 PRN IV NAUSEA AND/OR VOMITING; Start 09/26 at 22:30 Collagenase (Santyl) 1 applic DAILY TOP Last administered on 12/06/16t 08:33; Admin Dose 1 APPLIC; Start 09/27/16 at 09:00 Collagenase (Santyl) 1 applic PRN PRN TOP SOILED OR DISLODGED DRESSING; Start 09/27/16 at 05:00 Lansoprazole (Prevacid) 30 mg DAILY@06 GTB Last administered on 12/06/16 05:36 ; Admin Dose 30 MG; Start 09/28/16 at 06:00 Cromolyn Sodium (Nasalcrom) 1 spray QID NASAL Last administered on 12/06/16 08 :33; Admin Dose 1 SPRAY; Start 09/29/16 at 11:02 Phenol (Cepastat Lozenge) 1 lozenge Q2H PRN MT SORE THROAT Last administered on 11/02/16 01:02; Admin Dose 1 LOZENGE; Start 10/01/16 at 19:00 IV Flush (NS 10 ml) 10 ml PRN PRN IV IV PROTOCOL Last administered on 11/17/16 03:20; Admin Dose 10 ML; Start 10/02/16 at 19:00 Hydromorphone HCl (Dilaudid) 0.5 mg Q4H PRN IV PAIN Last administered on 22:31; Admin Dose 0.5 MG; Start 10/06/16 at 18:30 Potassium Chloride (Potassium Chloride Pwd/Soln) 20 meq DAILY GTB Last administered on 12/06/16 08:31; Admin Dose 20 MEQ; Start 10/30/16 at 12:00 Acetaminophen (Tylenol Liquid) 650 mg Q6H PRN PEG PAIN AND OR ELEVATED TEMP Last administered on 12/06/16 01:57; Admin Dose 650 MG; Start 11/16/16 at 20:04 Alprazolam (Xanax) 0.5 mg Q12H PRN PEG ANXIETY Last administered on 11/20/16 05 :30; Admin Dose 0.5 MG; Start 11/16/16 at 20:30 Ascorbic Acid (Vitamin C) 500 mg BID PEG Last administered on 12/06/16 08:32; Admin Dose 500 MG; Start 11/16/16 at 21:00 Atorvastatin Calcium (Lipitor) 20 mg QHS PEG Last administered on 12/05/16 21: 09; Admin Dose 20 MG; Start 11/16/16 at 21:00 Diazepam (Valium) 10 mg DAILY PEG Last administered on 12/06/16 08:31; Admin Dose 10 MG; Start 11/17/16 at 09:00 Duloxetine HCl (Cymbalta) 20 mg DAILY PEG Last administered on 12/06/16 08:31 ; Admin Dose 20 MG; Start 11/17/16 at 09:00 Lactobacillus Acidophilus (Florajen3 Capsule) 1 each TID PEG Last administered on 12/06/16 08:31; Admin Dose 1 EACH; Start 11/16/16 at 21:00 Promethazine HCl/ Codeine (Phenergan/ Codeine) 10 ml BID PRN PEG COUGH Last administered on 11/30/16 09:36; Admin Dose 10 ML; Start 11/16/16 at 20:00 Zolpidem Tartrate (Ambien) 5 mg QHS PRN PEG INSOMNIA; Start 11/16/16 at 20:00 Docusate Sodium (Colace Liquid Cup) 100 mg Q12 PRN GTB CONSTIPATION; Start 11/16 at 20:00 Oxycodone HCl (Roxicodone) 10 mg Q4H PO Last administered on 12/06/16 10:20; Admin Dose 10 MG; Start 11/20/16 at 17:30 Midodrine (Proamatine) 2.5 mg TID@,,17 NGT Last administered on 12/06/16 07:27; Admin Dose 2.5 MG; Start 11/24/16 at 18:33 Furosemide (Lasix) 20 mg DAILY GTB Last administered on 12/06/16 08:32; Admin Dose 20 MG; Start 12/01/16 at 09:00 Metoprolol Tartrate (Lopressor) 12.5 mg BID PO Last administered on 12/06/16 08:32; Admin Dose 12.5 MG; Start 12/03/16 at 21:00 Artemio Tipton DO Dec 06, 2016 11:40
--- NOTE | 2016-12-06 12:57 | CONS ---
Date/Time of Note Date/Time of Note DATE: 12/06/16 TIME: 12:56 Assessment/Plan Assessment/Plan Chief Complaint/Hosp Course SUBJECTIVE: Patient is awake, alert, looks comfortable. No fevers, no acute events per report INDWELLINGS: Trach, PEG, George, PICC line. PHYSICAL EXAMINATION: GENERAL: Fragile cachectic elderly woman who is in no distress. HEENT: Head atraumatic, normocephalic. Sclerae anicteric. Buccal mucosa dry. NECK: Supple. Tracheostomy present. CHEST: Rise symmetrical. Breath sounds diminished to bases. HEART: S1, S2. ABDOMEN: Soft, bowel tones present. EXTREMITIES: With trace dependent edema. ASSESSMENT: 1. Status post septic shock, urinary tract infection, and pneumonia. 2. Chronic respiratory failure. 3. Lung cancer. 4. History of Clostridium difficile colitis. 5. Unstageable sacral decubitus, status post debridement with wound VAC, completed 6 weeks antibiotics. 6. Cachexia. 7. Dysphagia, status post percutaneous endoscopic gastrostomy. PLAN: Stable off antibiotics. We will reculture her if she spikes fever 101. Continue present care. DW staff Problems: Consultation Date/Type/Reason Admit Date/Time Sep 26, 2016 at 20:07 Type of Consultation: ID Referring Provider: DRE LOBATO MD Exam/Review of Systems Vital Signs Vitals Vital Signs Date Time Temp Pulse Resp B/P Pulse Ox O2 Delivery O2 Flow Rate FiO2 12/06/16 12:39 89 12/06/16 11:58 97.5 15 95/70 100 12/06/16 07:36 Mechanical Ventilator 12/06/16 07:33 35 12/02/16 07:10 4.0 Intake and Output 12/05/16 12/05/16 12/06/16 15:00 23:00 07:00 Intake Total 1300 ml 774 ml Output Total 1900 ml 850 ml Balance -600 ml -76 ml Results Result Diagram: 12/05/16 0525 12/06/16 0627 Results 24 hrs Laboratory Tests Test 12/06/16 06:27 Sodium Level 135 Potassium Level 4.1 Chloride Level 100 Carbon Dioxide Level 28 Anion Gap 11 Blood Urea Nitrogen 17 Creatinine 0.44 Glucose Level 101 Calcium Level 7.7 L Medications Medications Current Medications Ondansetron HCl (Zofran Inj) 4 mg Q6 PRN IV NAUSEA AND/OR VOMITING; Start 4/11 /17 at 22:30 Collagenase (Santyl) 1 applic DAILY TOP Last administered on 12/06/16 08:33; Admin Dose 1 APPLIC; Start 09/27/16 at 09:00 Collagenase (Santyl) 1 applic PRN PRN TOP SOILED OR DISLODGED DRESSING; Start 09/27/16 at 05:00 Lansoprazole (Prevacid) 30 mg DAILY@06 GTB Last administered on 12/06/16 05:36 ; Admin Dose 30 MG; Start 09/28/16 at 06:00 Cromolyn Sodium (Nasalcrom) 1 spray QID NASAL Last administered on 12/06/16 12 :54; Admin Dose 1 SPRAY; Start 09/29/16 at 11:02 Phenol (Cepastat Lozenge) 1 lozenge Q2H PRN MT SORE THROAT Last administered on 11/02/16 01:02; Admin Dose 1 LOZENGE; Start 10/01/16 at 19:00 IV Flush (NS 10 ml) 10 ml PRN PRN IV IV PROTOCOL Last administered on 11/17/16 03:20; Admin Dose 10 ML; Start 10/02/16 at 19:00 Hydromorphone HCl (Dilaudid) 0.5 mg Q4H PRN IV PAIN Last administered on 22:31; Admin Dose 0.5 MG; Start 10/06/16 at 18:30 Potassium Chloride (Potassium Chloride Pwd/Soln) 20 meq DAILY GTB Last administered on 12/06/16 08:31; Admin Dose 20 MEQ; Start 10/30/16 at 12:00 Acetaminophen (Tylenol Liquid) 650 mg Q6H PRN PEG PAIN AND OR ELEVATED TEMP Last administered on 12/06/16 01:57; Admin Dose 650 MG; Start 11/16/16 at 20:04 Alprazolam (Xanax) 0.5 mg Q12H PRN PEG ANXIETY Last administered on 11/20/16 05 :30; Admin Dose 0.5 MG; Start 11/16/16 at 20:30 Ascorbic Acid (Vitamin C) 500 mg BID PEG Last administered on 12/06/16 08:32; Admin Dose 500 MG; Start 11/16/16 at 21:00 Atorvastatin Calcium (Lipitor) 20 mg QHS PEG Last administered on 12/05/16 21: 09; Admin Dose 20 MG; Start 11/16/16 at 21:00 Diazepam (Valium) 10 mg DAILY PEG Last administered on 12/06/16 08:31; Admin Dose 10 MG; Start 11/17/16 at 09:00 Duloxetine HCl (Cymbalta) 20 mg DAILY PEG Last administered on 12/06/16 08:31 ; Admin Dose 20 MG; Start 11/17/16 at 09:00 Lactobacillus Acidophilus (Florajen3 Capsule) 1 each TID PEG Last administered on 12/06/16 12:54; Admin Dose 1 EACH; Start 11/16/16 at 21:00 Promethazine HCl/ Codeine (Phenergan/ Codeine) 10 ml BID PRN PEG COUGH Last administered on 11/30/16 09:36; Admin Dose 10 ML; Start 11/16/16 at 20:00 Zolpidem Tartrate (Ambien) 5 mg QHS PRN PEG INSOMNIA; Start 11/16/16 at 20:00 Docusate Sodium (Colace Liquid Cup) 100 mg Q12 PRN GTB CONSTIPATION; Start 11/16 at 20:00 Oxycodone HCl (Roxicodone) 10 mg Q4H PO Last administered on 12/06/16 10:20; Admin Dose 10 MG; Start 11/20/16 at 17:30 Midodrine (Proamatine) 2.5 mg TID@08,12,17 NGT Last administered on 12/06/16 12:54; Admin Dose 2.5 MG; Start 11/24/16 at 18:33 Furosemide (Lasix) 20 mg DAILY GTB Last administered on 12/06/16 08:32; Admin Dose 20 MG; Start 12/01/16 at 09:00 Metoprolol Tartrate (Lopressor) 12.5 mg BID PO Last administered on 12/06/16 08:32; Admin Dose 12.5 MG; Start 12/03/16 at 21:00 RUBIN MAYEN NP Dec 06, 2016 12:57
--- NOTE | 2016-12-06 14:12 | CONS ---
Date/Time of Note Date/Time of Note DATE: 12/06/16 TIME: 14:09 Assessment/Plan Assessment/Plan Additional Assessment/Plan Ventilator setting; AC of 18, tidal volume 450, PEEP of 5, 35% FiO2. Assessment recommendations; next 1. Patient admitted for severe sepsis from sacral decubitus ulcer. 2. Status post cardiac arrest with CPR with ensuing anoxic brain injury. However mental status has improved over the last 48-72 hours. 3. Underlying COPD. 4. Lung malignancy. 5. Severe generalized deconditioning and emaciated state. Continue current supportive care. Overall prognosis remains poor. Consultation Date/Type/Reason Admit Date/Time Sep 26, 2016 at 20:07 Initial Consult Date 11/14/16 Type of Consultation: Pulmonary Referring Provider: DRE LOBATO MD 24 HR Interval Summary Free Text/Dictation Patient condition remains stable. Remains occasionally awake. Has remained hemodynamically stable. General examination; elderly woman, currently in no distress. Exam/Review of Systems Vital Signs Vitals Vital Signs Date Time Temp Pulse Resp B/P Pulse Ox O2 Delivery O2 Flow Rate FiO2 12/06/16 12:39 89 12/06/16 11:58 97.5 15 95/70 100 12/06/16 07:36 Mechanical Ventilator 12/06/16 07:33 35 12/02/16 07:10 4.0 Intake and Output 12/05/16 12/05/16 12/06/16 15:00 23:00 07:00 Intake Total 1300 ml 774 ml Output Total 1900 ml 850 ml Balance -600 ml -76 ml Exam HEENT exam is; supple neck, no JVD. No lymphadenopathy. Midline trachea. Tracheostomy placed with clean insertion site. Patient multiple carious teeth. Chest examination; diminished but clear vessel. S1-S2 audible, no murmurs. Regular rhythm. Abdomen examination; soft, G-tube in place. No organomegaly. Bowel sounds audible. Back examination; dressing applied over sacrum. Extremity examination; no peripheral edema. CASE MANAGEMENT ASSOCIATE examination : patient is semi-responsive. Results Result Diagram: 12/05/16 0525 12/06/16 0627 Results 24 hrs Laboratory Tests Test 12/06/16 06:27 Sodium Level 135 Potassium Level 4.1 Chloride Level 100 Carbon Dioxide Level 28 Anion Gap 11 Blood Urea Nitrogen 17 Creatinine 0.44 Glucose Level 101 Calcium Level 7.7 L Medications Medications Current Medications Ondansetron HCl (Zofran Inj) 4 mg Q6 PRN IV NAUSEA AND/OR VOMITING; Start 09/26 at 22:30 Collagenase (Santyl) 1 applic DAILY TOP Last administered on 12/06/16 08:33; Admin Dose 1 APPLIC; Start 09/27/16 at 09:00 Collagenase (Santyl) 1 applic PRN PRN TOP SOILED OR DISLODGED DRESSING; Start 09/27/16 at 05:00 Lansoprazole (Prevacid) 30 mg DAILY@06 GTB Last administered on 12/06/16 05:36 ; Admin Dose 30 MG; Start 09/28/16 at 06:00 Cromolyn Sodium (Nasalcrom) 1 spray QID NASAL Last administered on 12/06/16 12 :54; Admin Dose 1 SPRAY; Start 09/29/16 at 11:02 Phenol (Cepastat Lozenge) 1 lozenge Q2H PRN MT SORE THROAT Last administered on 11/02/16 01:02; Admin Dose 1 LOZENGE; Start 10/01/16 at 19:00 IV Flush (NS 10 ml) 10 ml PRN PRN IV IV PROTOCOL Last administered on 11/17/16 03:20; Admin Dose 10 ML; Start 10/02/16 at 19:00 Hydromorphone HCl (Dilaudid) 0.5 mg Q4H PRN IV PAIN Last administered on 22:31; Admin Dose 0.5 MG; Start 10/06/16 at 18:30 Potassium Chloride (Potassium Chloride Pwd/Soln) 20 meq DAILY GTB Last administered on 12/06/16 08:31; Admin Dose 20 MEQ; Start 10/30/16 at 12:00 Acetaminophen (Tylenol Liquid) 650 mg Q6H PRN PEG PAIN AND OR ELEVATED TEMP Last administered on 12/06/16 01:57; Admin Dose 650 MG; Start 11/16/16 at 20:04 Alprazolam (Xanax) 0.5 mg Q12H PRN PEG ANXIETY Last administered on 11/20/16 05 :30; Admin Dose 0.5 MG; Start 11/16/16 at 20:30 Ascorbic Acid (Vitamin C) 500 mg BID PEG Last administered on 12/06/16 08:32; Admin Dose 500 MG; Start 11/16/16 at 21:00 Atorvastatin Calcium (Lipitor) 20 mg QHS PEG Last administered on 12/05/16 21: 09; Admin Dose 20 MG; Start 11/16/16 at 21:00 Diazepam (Valium) 10 mg DAILY PEG Last administered on 12/06/16 08:31; Admin Dose 10 MG; Start 11/17/16 at 09:00 Duloxetine HCl (Cymbalta) 20 mg DAILY PEG Last administered on 12/06/16 08:31 ; Admin Dose 20 MG; Start 11/17/16 at 09:00 Lactobacillus Acidophilus (Florajen3 Capsule) 1 each TID PEG Last administered on 12/06/16 12:54; Admin Dose 1 EACH; Start 11/16/16 at 21:00 Promethazine HCl/ Codeine (Phenergan/ Codeine) 10 ml BID PRN PEG COUGH Last administered on 11/30/16 09:36; Admin Dose 10 ML; Start 11/16/16 at 20:00 Zolpidem Tartrate (Ambien) 5 mg QHS PRN PEG INSOMNIA; Start 11/16/16 at 20:00 Docusate Sodium (Colace Liquid Cup) 100 mg Q12 PRN GTB CONSTIPATION; Start 11/16 at 20:00 Oxycodone HCl (Roxicodone) 10 mg Q4H PO Last administered on 12/06/16 10:20; Admin Dose 10 MG; Start 11/20/16 at 17:30 Midodrine (Proamatine) 2.5 mg TID@,,17 NGT Last administered on 12/06/16 12:54; Admin Dose 2.5 MG; Start 11/24/16 at 18:33 Furosemide (Lasix) 20 mg DAILY GTB Last administered on 12/06/16 08:32; Admin Dose 20 MG; Start 12/01/16 at 09:00 Metoprolol Tartrate (Lopressor) 12.5 mg BID PO Last administered on 12/06/16 08:32; Admin Dose 12.5 MG; Start 12/03/16 at 21:00 REGINE BUCKLEY 21, 2017 14:11
--- NOTE | 2016-12-06 16:59 | CONS ---
Date/Time of Note Date/Time of Note DATE: 12/06/16 TIME: 16:57 Assessment/Plan Assessment/Plan Additional Assessment/Plan 1. acute on chronic resp failure intubated on ventilator- not able to wean off s/p Tracheostomy 2. PEA s/p resuscitation 3. Hyponatremia multifactorial 4. Pneumonia. 3. Lung cancer. 4. History of Clostridium difficile colitis and recurrent urinary tract infection. 5. Unstageable sacral wound, status post debridement with wound VAC application. PLAN: conitnue IV abx, ID following, S/p Tracheostomy making good urine Electrolyte stable today will follow up Consultation Date/Type/Reason Admit Date/Time Sep 26, 2016 at 20:07 Type of Consultation: NEPHROLOGY Referring Provider: DRE LOBATO MD 24 HR Interval Summary Free Text/Dictation no acute events Exam/Review of Systems Vital Signs Vitals Vital Signs Date Time Temp Pulse Resp B/P Pulse Ox O2 Delivery O2 Flow Rate FiO2 12/06/16 16:56 101.2 12/06/16 16:00 109 18 99/65 94 12/06/16 07:36 Mechanical Ventilator 12/06/16 07:33 35 12/02/16 07:10 4.0 Intake and Output 12/05/16 12/05/16 12/06/16 15:00 23:00 07:00 Intake Total 1300 ml 774 ml Output Total 1900 ml 850 ml Balance -600 ml -76 ml Exam GENERAL: Chronically ill-appearing, + tracheostomy HEENT: + tracheostomy NECK: Supple. CHEST: Rise symmetrical. Breath sounds diminished. HEART: S1, S2. ABDOMEN: Soft. EXTREMITIES: No cyanosis. Results Result Diagram: 12/05/16 0525 12/06/16 0627 Results 24 hrs Laboratory Tests Test 12/06/16 06:27 Sodium Level 135 Potassium Level 4.1 Chloride Level 100 Carbon Dioxide Level 28 Anion Gap 11 Blood Urea Nitrogen 17 Creatinine 0.44 Glucose Level 101 Calcium Level 7.7 L Medications Medications Current Medications Ondansetron HCl (Zofran Inj) 4 mg Q6 PRN IV NAUSEA AND/OR VOMITING; Start 09/26 at 22:30 Collagenase (Santyl) 1 applic DAILY TOP Last administered on 12/06/16t 08:33; Admin Dose 1 APPLIC; Start 09/27/16 at 09:00 Collagenase (Santyl) 1 applic PRN PRN TOP SOILED OR DISLODGED DRESSING; Start 09/27/16 at 05:00 Lansoprazole (Prevacid) 30 mg DAILY@06 GTB Last administered on 12/06/16 05:36 ; Admin Dose 30 MG; Start 09/28/16 at 06:00 Cromolyn Sodium (Nasalcrom) 1 spray QID NASAL Last administered on 12/06/16 12 :54; Admin Dose 1 SPRAY; Start 09/29/16 at 11:02 Phenol (Cepastat Lozenge) 1 lozenge Q2H PRN MT SORE THROAT Last administered on 11/02/16 01:02; Admin Dose 1 LOZENGE; Start 10/01/16 at 19:00 IV Flush (NS 10 ml) 10 ml PRN PRN IV IV PROTOCOL Last administered on 11/17/16 03:20; Admin Dose 10 ML; Start 10/02/16 at 19:00 Hydromorphone HCl (Dilaudid) 0.5 mg Q4H PRN IV PAIN Last administered on 22:31; Admin Dose 0.5 MG; Start 10/06/16 at 18:30 Potassium Chloride (Potassium Chloride Pwd/Soln) 20 meq DAILY GTB Last administered on 12/06/16 08:31; Admin Dose 20 MEQ; Start 10/30/16 at 12:00 Acetaminophen (Tylenol Liquid) 650 mg Q6H PRN PEG PAIN AND OR ELEVATED TEMP Last administered on 12/06/16 01:57; Admin Dose 650 MG; Start 11/16/16 at 20:04 Alprazolam (Xanax) 0.5 mg Q12H PRN PEG ANXIETY Last administered on 11/20/16 05 :30; Admin Dose 0.5 MG; Start 11/16/16 at 20:30 Ascorbic Acid (Vitamin C) 500 mg BID PEG Last administered on 12/06/16 08:32; Admin Dose 500 MG; Start 11/16/16 at 21:00 Atorvastatin Calcium (Lipitor) 20 mg QHS PEG Last administered on 12/05/16 21: 09; Admin Dose 20 MG; Start 11/16/16 at 21:00 Diazepam (Valium) 10 mg DAILY PEG Last administered on 12/06/16 08:31; Admin Dose 10 MG; Start 11/17/16 at 09:00 Duloxetine HCl (Cymbalta) 20 mg DAILY PEG Last administered on 12/06/16 08:31 ; Admin Dose 20 MG; Start 11/17/16 at 09:00 Lactobacillus Acidophilus (Florajen3 Capsule) 1 each TID PEG Last administered on 12/06/16 12:54; Admin Dose 1 EACH; Start 11/16/16 at 21:00 Promethazine HCl/ Codeine (Phenergan/ Codeine) 10 ml BID PRN PEG COUGH Last administered on 11/30/16 09:36; Admin Dose 10 ML; Start 11/16/16 at 20:00 Zolpidem Tartrate (Ambien) 5 mg QHS PRN PEG INSOMNIA; Start 11/16/16 at 20:00 Docusate Sodium (Colace Liquid Cup) 100 mg Q12 PRN GTB CONSTIPATION; Start 11/16 at 20:00 Oxycodone HCl (Roxicodone) 10 mg Q4H PO Last administered on 12/06/16 15:03; Admin Dose 10 MG; Start 11/20/16 at 17:30 Midodrine (Proamatine) 2.5 mg TID@,,17 NGT Last administered on 12/06/16 12:54; Admin Dose 2.5 MG; Start 11/24/16 at 18:33 Furosemide (Lasix) 20 mg DAILY GTB Last administered on 12/06/16 08:32; Admin Dose 20 MG; Start 12/01/16 at 09:00 Metoprolol Tartrate (Lopressor) 12.5 mg BID PO Last administered on 12/06/16 08:32; Admin Dose 12.5 MG; Start 12/03/16 at 21:00 DIONNE SAUCEDA MD Dec 06, 2016 16:59
--- NOTE | 2016-12-06 17:04 | PN ---
Date/Time of Note Date/Time of Note DATE: 12/06/16 TIME: 17:02 Assessment/Plan VTE Prophylaxis VTE Prophylaxis Intervention: SCD's Lines/Catheters IV [facility] Type (from [facility]): PICC Line Central line still needed: Yes Urinary Cath still in place: Yes Reason Cath still needed: urinary retention Assessment/Plan Chief Complaint/Hosp Course Patient spiked a fever 101.0, will obtain cultures chest x-ray. ASSESSMENT AND PLAN: - Status post tracheostomy by Dr. White, ENT on 11/28. - Status post cardiopulmonary arrest. - Septic shock, resolving. Dr. Coleman is following in infectious disease consultation. Completed the course of antibiotics. - Acute respiratory failure. Continue breathing treatment, oxygen supply supplementation and bronchodilators. Dr. Lopez is following in pulmonology consultation. - Left lung squamous carcinoma. The patient is not a candidate for chemotherapy. Dr. Calvo is following in oncology consultation. - Chronic obstructive pulmonary disease. Patient with long history of tobacco use. - Anemia of chronic disease. Continue to monitor hemoglobin and hematocrit. - Dysphagia with G-tube. Continue G-tube feeding, monitor residual. Continue aspiration precautions. - Hypothyroidism. Continue Synthroid. - Chronic pain. - Failure to thrive. Continue sequential compression device for deep venous thrombosis prophylaxis and Prevacid for peptic ulcer disease prophylaxis. Further recommendations based on clinical course. Plan of care discussed with Dr. Dozier. Problems: Exam/Review of Systems Vital Signs Vitals Vital Signs Date Time Temp Pulse Resp B/P Pulse Ox O2 Delivery O2 Flow Rate FiO2 12/06/16 16:56 101.2 12/06/16 16:00 109 18 99/65 94 12/06/16 07:36 Mechanical Ventilator 12/06/16 07:33 35 12/02/16 07:10 4.0 Intake and Output 12/05/16 12/05/16 12/06/16 15:00 23:00 07:00 Intake Total 1300 ml 774 ml Output Total 1900 ml 850 ml Balance -600 ml -76 ml Exam Constitutional: frail Head: normocephalic ENMT: other (tracheostomy) Respiratory: diminished breath sounds Cardiovascular: nl pulses Gastrointestinal: non-tender, other (G-tube), soft Extremities: normal pulses Skin: other (Multiple wounds) Results Result Diagram: 12/05/16 0525 12/06/16 0674 Results 24 hrs Laboratory Tests Test 12/06/16 06:27 Sodium Level 135 Potassium Level 4.1 Chloride Level 100 Carbon Dioxide Level 28 Anion Gap 11 Blood Urea Nitrogen 17 Creatinine 0.44 Glucose Level 101 Calcium Level 7.7 L Medications Medications Current Medications Ondansetron HCl (Zofran Inj) 4 mg Q6 PRN IV NAUSEA AND/OR VOMITING; Start 09/26 at 22:30 Collagenase (Santyl) 1 applic DAILY TOP Last administered on 12/06/16 08:33; Admin Dose 1 APPLIC; Start 09/27/16 at 09:00 Collagenase (Santyl) 1 applic PRN PRN TOP SOILED OR DISLODGED DRESSING; Start 09/27/16 at 05:00 Lansoprazole (Prevacid) 30 mg DAILY@06 GTB Last administered on 12/06/16 05:36 ; Admin Dose 30 MG; Start 09/28/16 at 06:00 Cromolyn Sodium (Nasalcrom) 1 spray QID NASAL Last administered on 12/06/16 12 :54; Admin Dose 1 SPRAY; Start 09/29/16 at 11:02 Phenol (Cepastat Lozenge) 1 lozenge Q2H PRN MT SORE THROAT Last administered on 11/02/16 01:02; Admin Dose 1 LOZENGE; Start 10/01/16 at 19:00 IV Flush (NS 10 ml) 10 ml PRN PRN IV IV PROTOCOL Last administered on 11/17/16 03:20; Admin Dose 10 ML; Start 10/02/16 at 19:00 Hydromorphone HCl (Dilaudid) 0.5 mg Q4H PRN IV PAIN Last administered on 22:31; Admin Dose 0.5 MG; Start 10/06/16 at 18:30 Potassium Chloride (Potassium Chloride Pwd/Soln) 20 meq DAILY GTB Last administered on 12/06/16 08:31; Admin Dose 20 MEQ; Start 10/30/16 at 12:00 Acetaminophen (Tylenol Liquid) 650 mg Q6H PRN PEG PAIN AND OR ELEVATED TEMP Last administered on 12/06/16 01:57; Admin Dose 650 MG; Start 11/16/16 at 20:04 Alprazolam (Xanax) 0.5 mg Q12H PRN PEG ANXIETY Last administered on 11/20/16 05 :30; Admin Dose 0.5 MG; Start 11/16/16 at 20:30 Ascorbic Acid (Vitamin C) 500 mg BID PEG Last administered on 12/06/16 08:32; Admin Dose 500 MG; Start 11/16/16 at 21:00 Atorvastatin Calcium (Lipitor) 20 mg QHS PEG Last administered on 12/05/16 21: 09; Admin Dose 20 MG; Start 11/16/16 at 21:00 Diazepam (Valium) 10 mg DAILY PEG Last administered on 12/06/16 08:31; Admin Dose 10 MG; Start 11/17/16 at 09:00 Duloxetine HCl (Cymbalta) 20 mg DAILY PEG Last administered on 12/06/16 08:31 ; Admin Dose 20 MG; Start 11/17/16 at 09:00 Lactobacillus Acidophilus (Florajen3 Capsule) 1 each TID PEG Last administered on 12/06/16 12:54; Admin Dose 1 EACH; Start 11/16/16 at 21:00 Promethazine HCl/ Codeine (Phenergan/ Codeine) 10 ml BID PRN PEG COUGH Last administered on 11/30/16 09:36; Admin Dose 10 ML; Start 11/16/16 at 20:00 Zolpidem Tartrate (Ambien) 5 mg QHS PRN PEG INSOMNIA; Start 11/16/16 at 20:00 Docusate Sodium (Colace Liquid Cup) 100 mg Q12 PRN GTB CONSTIPATION; Start 11/16 at 20:00 Oxycodone HCl (Roxicodone) 10 mg Q4H PO Last administered on 12/06/16 15:03; Admin Dose 10 MG; Start 11/20/16 at 17:30 Midodrine (Proamatine) 2.5 mg TID@,,17 NGT Last administered on 12/06/16 12:54; Admin Dose 2.5 MG; Start 11/24/16 at 18:33 Furosemide (Lasix) 20 mg DAILY GTB Last administered on 12/06/16 08:32; Admin Dose 20 MG; Start 12/01/16 at 09:00 Metoprolol Tartrate (Lopressor) 12.5 mg BID PO Last administered on 12/06/16 08:32; Admin Dose 12.5 MG; Start 12/03/16 at 21:00 REBECCA ISLAS Dec 06, 2016 17:04
--- NOTE | 2016-12-06 19:54 | CONS ---
Date/Time of Note Date/Time of Note DATE: 12/06/16 TIME: 19:54 Assessment/Plan Assessment/Plan Chief Complaint/Hosp Course Left lung squamous carcinoma. The patient is not a candidate for chemotherapy. Anemia of chronic disease. post 10 u prbc monitor blood count closely transfuse as needed to keep HB above 8 Acute respiratory insufficiency requiring BiPAP. trach -per daughter's wishes Acute shock, septic versus hypovolemic. tachycardia with episode of SVT. Chronic obstructive pulmonary disease. Dysphagia with G-tube. Continue current G-tube feeding. Hypothyroidism. Continue Synthroid. Problems: Consultation Date/Type/Reason Admit Date/Time Sep 26, 2016 at 20:07 Initial Consult Date 10/19/16 Type of Consultation: HEMEON Referring Provider: DRE LOBATO MD 24 HR Interval Summary Free Text/Dictation ALL NOTED NO NEW EVENTS Exam/Review of Systems Vital Signs Vitals Vital Signs Date Time Temp Pulse Resp B/P Pulse Ox O2 Delivery O2 Flow Rate FiO2 12/06/16 17:25 108 18 95 35 12/06/16 16:56 101.2 12/06/16 16:00 99/65 12/06/16 07:36 Mechanical Ventilator 12/02/16 07:10 4.0 Intake and Output 12/05/16 12/05/16 12/06/16 15:00 23:00 07:00 Intake Total 1300 ml 774 ml Output Total 1900 ml 850 ml Balance -600 ml -76 ml Exam Constitutional: frail Head: normocephalic ENMT: other (tracheostomy) Respiratory: diminished breath sounds Cardiovascular: nl pulses Gastrointestinal: non-tender, other (G-tube), soft Extremities: normal pulses Skin: other (Multiple wounds) Results Result Diagram: 12/05/16 0525 12/06/16 0627 Results 24 hrs Laboratory Tests Test 12/06/16 06:27 Sodium Level 135 Potassium Level 4.1 Chloride Level 100 Carbon Dioxide Level 28 Anion Gap 11 Blood Urea Nitrogen 17 Creatinine 0.44 Glucose Level 101 Calcium Level 7.7 L Medications Medications Current Medications Ondansetron HCl (Zofran Inj) 4 mg Q6 PRN IV NAUSEA AND/OR VOMITING; Start 09/26 at 22:30 Collagenase (Santyl) 1 applic DAILY TOP Last administered on 12/06/16t 08:33; Admin Dose 1 APPLIC; Start 09/27/16 at 09:00 Collagenase (Santyl) 1 applic PRN PRN TOP SOILED OR DISLODGED DRESSING; Start 09/27/16 at 05:00 Lansoprazole (Prevacid) 30 mg DAILY@06 GTB Last administered on 12/06/16 05:36 ; Admin Dose 30 MG; Start 09/28/16 at 06:00 Cromolyn Sodium (Nasalcrom) 1 spray QID NASAL Last administered on 12/06/16 17 :30; Admin Dose 1 SPRAY; Start 09/29/16 at 11:02 Phenol (Cepastat Lozenge) 1 lozenge Q2H PRN MT SORE THROAT Last administered on 11/02/16 01:02; Admin Dose 1 LOZENGE; Start 10/01/16 at 19:00 IV Flush (NS 10 ml) 10 ml PRN PRN IV IV PROTOCOL Last administered on 11/17/16 03:20; Admin Dose 10 ML; Start 10/02/16 at 19:00 Hydromorphone HCl (Dilaudid) 0.5 mg Q4H PRN IV PAIN Last administered on 22:31; Admin Dose 0.5 MG; Start 10/06/16 at 18:30 Potassium Chloride (Potassium Chloride Pwd/Soln) 20 meq DAILY GTB Last administered on 12/06/16 08:31; Admin Dose 20 MEQ; Start 10/30/16 at 12:00 Acetaminophen (Tylenol Liquid) 650 mg Q6H PRN PEG PAIN AND OR ELEVATED TEMP Last administered on 12/06/16 17:30; Admin Dose 650 MG; Start 11/16/16 at 20:04 Alprazolam (Xanax) 0.5 mg Q12H PRN PEG ANXIETY Last administered on 11/20/16 05 :30; Admin Dose 0.5 MG; Start 11/16/16 at 20:30 Ascorbic Acid (Vitamin C) 500 mg BID PEG Last administered on 12/06/16 08:32; Admin Dose 500 MG; Start 11/16/16 at 21:00 Atorvastatin Calcium (Lipitor) 20 mg QHS PEG Last administered on 12/05/16 21: 09; Admin Dose 20 MG; Start 11/16/16 at 21:00 Diazepam (Valium) 10 mg DAILY PEG Last administered on 12/06/16 08:31; Admin Dose 10 MG; Start 11/17/16 at 09:00 Duloxetine HCl (Cymbalta) 20 mg DAILY PEG Last administered on 12/06/16 08:31 ; Admin Dose 20 MG; Start 11/17/16 at 09:00 Lactobacillus Acidophilus (Florajen3 Capsule) 1 each TID PEG Last administered on 12/06/16 12:54; Admin Dose 1 EACH; Start 11/16/16 at 21:00 Promethazine HCl/ Codeine (Phenergan/ Codeine) 10 ml BID PRN PEG COUGH Last administered on 11/30/16 09:36; Admin Dose 10 ML; Start 11/16/16 at 20:00 Zolpidem Tartrate (Ambien) 5 mg QHS PRN PEG INSOMNIA; Start 11/16/16 at 20:00 Docusate Sodium (Colace Liquid Cup) 100 mg Q12 PRN GTB CONSTIPATION; Start 11/16 at 20:00 Oxycodone HCl (Roxicodone) 10 mg Q4H PO Last administered on 12/06/16 18:55; Admin Dose 10 MG; Start 11/20/16 at 17:30 Midodrine (Proamatine) 2.5 mg TID@,,17 NGT Last administered on 12/06/16 17:31; Admin Dose 2.5 MG; Start 11/24/16 at 18:33 Furosemide (Lasix) 20 mg DAILY GTB Last administered on 12/06/16 08:32; Admin Dose 20 MG; Start 12/01/16 at 09:00 Metoprolol Tartrate (Lopressor) 12.5 mg BID PO Last administered on 12/06/16 08:32; Admin Dose 12.5 MG; Start 12/03/16 at 21:00 DYLLAN CARRION MD Dec 06, 2016 19:54
[2016-12-06] MEDS: ATORVASTATIN 20 MG TAB PEG SCH (21:14)
[2016-12-07] VITALS (21 sets, daily range): BP systolic 94–112; BP diastolic 56–81; PULSE 88–115; RESP 17–25
[2016-12-07] MEDS: oxyCODONE 5 MG TAB PO SCH ×6 (01:11→21:27)
[2016-12-07] MEDS: LANSOPRAZOLE 30 MG CAP GTB SCH (05:56)
[2016-12-07] MEDS: LEVOTHYROXINE 125 MCG TAB PEG SCH (06:15)
[2016-12-07 06:50] LABS: ADD SCAN DIFF NO
[2016-12-07 07:59] LABS: BASOPHIL # 0.1 10^3/ul (0.0-0.1); BASOPHILS % 0.5 % (0.0-2.0); EOSINOPHILS # 0.5 10^3/ul (0.0-0.5); EOSINOPHILS % 3.2 % (0.0-7.0); HEMATOCRIT 25.1 % (37.0-47.0); HEMOGLOBIN 7.6 g/dl (12.0-16.0); LYMPHOCYTES # 1.7 10^3/ul (0.8-2.9); LYMPHOCYTES % 11.4 % (15.0-51.0); MEAN CORPUSCULAR HEMOGLOBIN 26.4 pg (29.0-33.0); MEAN CORPUSCULAR HGB CONC 30.3 g/dl (32.0-37.0); MEAN CORPUSCULAR VOLUME 87.2 fl (82.0-101.0); MONOCYTE # 1.3 10^3/ul (0.3-0.9); MONOCYTES % 8.4 % (0.0-11.0); NEUTROPHIL # 11.4 10^3/ul (1.6-7.5); PLATELET COUNT 322 10^3/UL (140-415); RED BLOOD COUNT 2.88 10^6/ul (4.20-5.40); RED CELL DISTRIBUTION WIDTH 16.8 % (11.5-14.5)
[2016-12-07 08:59] LABS: CALCIUM 7.6 mg/dl (8.4-10.2); CREATININE 0.5 mg/dl (0.44-1.00)
[2016-12-07] MEDS: FUROSEMIDE 20 MG TAB GTB SCH (09:22)
[2016-12-07] MEDS: DULOXETINE 20 MG CAP DR PEG SCH (09:22)
[2016-12-07] MEDS: METOPROLOL 25 MG TAB PO SCH ×2 (09:23→20:29)
[2016-12-07] MEDS: ASCORBIC ACID 500 MG TAB PEG SCH ×2 (09:23→21:27)
[2016-12-07] MEDS: L ACIDOPHIL/B LACTIS/B LONGUM CAPSULE PEG SCH ×3 (09:23→21:28)
[2016-12-07] MEDS: DIAZEPAM 5 MG TAB PEG SCH (09:23)
[2016-12-07] MEDS: POTASSIUM CHLORIDE 20 MEQ POWDER FOR ORAL SOLN GTB SCH (09:24)
[2016-12-07] MEDS: CROMOLYN 4% 26ML NAS INH NASAL SCH ×4 (09:24→21:28)
[2016-12-07] MEDS: COLLAGENASE 30 GM TUBE TOP SCH (09:24)
[2016-12-07] MEDS: MIDODRINE 2.5 MG TAB NGT SCH ×3 (10:45→17:00)
[2016-12-07] MEDS: ACETAMINOPHEN 650MG/20.3ML CUP PEG PRN (12:32)
--- NOTE | 2016-12-07 14:29 | CONS ---
Date/Time of Note Date/Time of Note DATE: 12/07/16 TIME: 14:27 Assessment/Plan Assessment/Plan Additional Assessment/Plan Ventilator setting; AC of 18, tidal volume 450, PEEP of 5, 35% FiO2. Assessment recommendations; 1. Patient admitted for severe sepsis from decubitus ulcers currently on broad- spectrum antibiotic coverage. 2. Status post cardiac arrest and CPR resulting in anoxic brain injury however mental status has improved substantially. 3. Underlying severe COPD. 4. History of lung cancer. 5. Severe emaciation and malnutrition. 6. Anemia. Continue current supportive care. Consultation Date/Type/Reason Admit Date/Time Sep 26, 2016 at 20:07 Initial Consult Date 11/14/16 Type of Consultation: Pulmonary Referring Provider: DRE LOBATO MD 24 HR Interval Summary Free Text/Dictation Patient condition remains stable. Remains awake and alert. Has remained hemodynamically stable. General exam; elderly woman, on ventilator via tracheostomy currently in no distress. Exam/Review of Systems Vital Signs Vitals Vital Signs Date Time Temp Pulse Resp B/P Pulse Ox O2 Delivery O2 Flow Rate FiO2 12/07/16 12:30 88 12/07/16 11:41 99.8 18 95/66 97 12/07/16 11:10 35 12/06/16 07:36 Mechanical Ventilator Intake and Output 12/06/16 12/06/16 12/07/16 15:00 23:00 07:00 Intake Total 800 ml 910 ml Output Total 1000 ml 8500 ml Balance -200 ml -7590 ml Exam HEENT exam is; supple neck, no JVD. No lymphadenopathy. Midline trachea. No thyromegaly. Tracheostomy in place. Patient multiple carious teeth. Chest examination; diminished but clear vessel. S1-S2 audible, no murmurs. Regular rhythm. Abdomen examination; soft, G-tube in place. Nondistended. Bowel sounds audible. Back examination; dressing over sacrum. Extremity examination; no peripheral edema. RAISIN WASHER exam is; patient is awake. Results Result Diagram: 12/07/16 0615 12/07/16 0615 Results 24 hrs Laboratory Tests Test 12/07/16 06:15 White Blood Count 15.0 H Red Blood Count 2.88 L Hemoglobin 7.6 L Hematocrit 25.1 L Mean Corpuscular Volume 87.2 Mean Corpuscular Hemoglobin 26.4 L Mean Corpuscular Hemoglobin Concent 30.3 L Red Cell Distribution Width 16.8 H Platelet Count 322 Mean Platelet Volume 10.0 Neutrophils % 76.0 Lymphocytes % 11.4 L Monocytes % 8.4 Eosinophils % 3.2 Basophils % 0.5 Nucleated Red Blood Cells % 0.0 Neutrophils # 11.4 H Lymphocytes # 1.7 Monocytes # 1.3 H Eosinophils # 0.5 Basophils # 0.1 Nucleated Red Blood Cells # 0.0 Sodium Level 131 L Potassium Level 4.0 Chloride Level 97 Carbon Dioxide Level 30 Anion Gap 8 Blood Urea Nitrogen 18 Creatinine 0.50 Glucose Level 107 Calcium Level 7.6 L Medications Medications Current Medications Ondansetron HCl (Zofran Inj) 4 mg Q6 PRN IV NAUSEA AND/OR VOMITING; Start 09/26 at 22:30 Collagenase (Santyl) 1 applic DAILY TOP Last administered on 12/07/16 09:24; Admin Dose 1 APPLIC; Start 09/27/16 at 09:00 Collagenase (Santyl) 1 applic PRN PRN TOP SOILED OR DISLODGED DRESSING; Start 09/27/16 at 05:00 Lansoprazole (Prevacid) 30 mg DAILY@06 GTB Last administered on 12/07/16 05:56 ; Admin Dose 30 MG; Start 09/28/16 at 06:00 Cromolyn Sodium (Nasalcrom) 1 spray QID NASAL Last administered on 12/07/16 12 :32; Admin Dose 1 SPRAY; Start 09/29/16 at 11:02 Phenol (Cepastat Lozenge) 1 lozenge Q2H PRN MT SORE THROAT Last administered on 11/02/16 01:02; Admin Dose 1 LOZENGE; Start 10/01/16 at 19:00 IV Flush (NS 10 ml) 10 ml PRN PRN IV IV PROTOCOL Last administered on 11/17/16 03:20; Admin Dose 10 ML; Start 10/02/16 at 19:00 Hydromorphone HCl (Dilaudid) 0.5 mg Q4H PRN IV PAIN Last administered on 22:31; Admin Dose 0.5 MG; Start 10/06/16 at 18:30 Potassium Chloride (Potassium Chloride Pwd/Soln) 20 meq DAILY GTB Last administered on 12/07/16 09:24; Admin Dose 20 MEQ; Start 10/30/16 at 12:00 Acetaminophen (Tylenol Liquid) 650 mg Q6H PRN PEG PAIN AND OR ELEVATED TEMP Last administered on 12/07/16 12:32; Admin Dose 650 MG; Start 11/16/16 at 20:04 Alprazolam (Xanax) 0.5 mg Q12H PRN PEG ANXIETY Last administered on 11/20/16 05 :30; Admin Dose 0.5 MG; Start 11/16/16 at 20:30 Ascorbic Acid (Vitamin C) 500 mg BID PEG Last administered on 12/07/16 09:23; Admin Dose 500 MG; Start 11/16/16 at 21:00 Atorvastatin Calcium (Lipitor) 20 mg QHS PEG Last administered on 12/06/16 21: 14; Admin Dose 20 MG; Start 11/16/16 at 21:00 Diazepam (Valium) 10 mg DAILY PEG Last administered on 12/07/16 09:23; Admin Dose 10 MG; Start 11/17/16 at 09:00 Duloxetine HCl (Cymbalta) 20 mg DAILY PEG Last administered on 12/07/16 09:22 ; Admin Dose 20 MG; Start 11/17/16 at 09:00 Lactobacillus Acidophilus (Florajen3 Capsule) 1 each TID PEG Last administered on 12/07/16 12:32; Admin Dose 1 EACH; Start 11/16/16 at 21:00 Promethazine HCl/ Codeine (Phenergan/ Codeine) 10 ml BID PRN PEG COUGH Last administered on 11/30/16 09:36; Admin Dose 10 ML; Start 11/16/16 at 20:00 Zolpidem Tartrate (Ambien) 5 mg QHS PRN PEG INSOMNIA; Start 11/16/16 at 20:00 Docusate Sodium (Colace Liquid Cup) 100 mg Q12 PRN GTB CONSTIPATION; Start 11/16 at 20:00 Oxycodone HCl (Roxicodone) 10 mg Q4H PO Last administered on 12/07/16 12:32; Admin Dose 10 MG; Start 11/20/16 at 17:30 Midodrine (Proamatine) 2.5 mg TID@08,12,17 NGT Last administered on 12/07/16 13:53; Admin Dose 2.5 MG; Start 11/24/16 at 18:33 Furosemide (Lasix) 20 mg DAILY GTB Last administered on 12/07/16 09:22; Admin Dose 20 MG; Start 12/01/16 at 09:00 Metoprolol Tartrate (Lopressor) 12.5 mg BID PO Last administered on 12/07/16 09:23; Admin Dose 12.5 MG; Start 12/03/16 at 21:00 REGINE BUCKLEY Dec 07, 2016 14:29
--- NOTE | 2016-12-07 14:44 | CONS ---
Date/Time of Note Date/Time of Note DATE: 12/07/16 TIME: 14:43 Assessment/Plan Assessment/Plan Chief Complaint/Hosp Course SUBJECTIVE: S/p fever last night, currently afebrile, nad, n/ n/v/d INDWELLINGS: Trach, PEG, George, PICC line. PHYSICAL EXAMINATION: GENERAL: Fragile cachectic elderly woman who is in no distress. HEENT: Head atraumatic, normocephalic. Sclerae anicteric. Buccal mucosa dry. NECK: Supple. Tracheostomy present. CHEST: Rise symmetrical. Breath sounds diminished to bases. HEART: S1, S2. ABDOMEN: Soft, bowel tones present. EXTREMITIES: With trace dependent edema. ASSESSMENT: 1. Status post septic shock, urinary tract infection, and pneumonia. 2. Chronic respiratory failure. 3. Lung cancer. 4. History of Clostridium difficile colitis. 5. Unstageable sacral decubitus, status post debridement with wound VAC, completed 6 weeks antibiotics. 6. Cachexia. 7. Dysphagia, status post percutaneous endoscopic gastrostomy. PLAN: Stable off antibiotics although spiked fever last night, will reculture prn DW staff Problems: Consultation Date/Type/Reason Admit Date/Time Sep 26, 2016 at 20:07 Type of Consultation: id Referring Provider: DRE LOBATO MD Exam/Review of Systems Vital Signs Vitals Vital Signs Date Time Temp Pulse Resp B/P Pulse Ox O2 Delivery O2 Flow Rate FiO2 12/07/16 12:30 88 12/07/16 11:41 99.8 18 95/66 97 12/07/16 11:10 35 12/06/16 07:36 Mechanical Ventilator Intake and Output 12/06/16 12/06/16 12/07/16 15:00 23:00 07:00 Intake Total 800 ml 910 ml Output Total 1000 ml 8500 ml Balance -200 ml -7590 ml Results Result Diagram: 12/07/1615 12/07/16 0615 Results 24 hrs Laboratory Tests Test 12/07/16 06:15 White Blood Count 15.0 H Red Blood Count 2.88 L Hemoglobin 7.6 L Hematocrit 25.1 L Mean Corpuscular Volume 87.2 Mean Corpuscular Hemoglobin 26.4 L Mean Corpuscular Hemoglobin Concent 30.3 L Red Cell Distribution Width 16.8 H Platelet Count 322 Mean Platelet Volume 10.0 Neutrophils % 76.0 Lymphocytes % 11.4 L Monocytes % 8.4 Eosinophils % 3.2 Basophils % 0.5 Nucleated Red Blood Cells % 0.0 Neutrophils # 11.4 H Lymphocytes # 1.7 Monocytes # 1.3 H Eosinophils # 0.5 Basophils # 0.1 Nucleated Red Blood Cells # 0.0 Sodium Level 131 L Potassium Level 4.0 Chloride Level 97 Carbon Dioxide Level 30 Anion Gap 8 Blood Urea Nitrogen 18 Creatinine 0.50 Glucose Level 107 Calcium Level 7.6 L Medications Medications Current Medications Ondansetron HCl (Zofran Inj) 4 mg Q6 PRN IV NAUSEA AND/OR VOMITING; Start 09/26 at 22:30 Collagenase (Santyl) 1 applic DAILY TOP Last administered on 12/07/16 09:24; Admin Dose 1 APPLIC; Start 09/27/16 at 09:00 Collagenase (Santyl) 1 applic PRN PRN TOP SOILED OR DISLODGED DRESSING; Start 09/27/16 at 05:00 Lansoprazole (Prevacid) 30 mg DAILY@06 GTB Last administered on 12/07/16 05:56 ; Admin Dose 30 MG; Start 09/28/16 at 06:00 Cromolyn Sodium (Nasalcrom) 1 spray QID NASAL Last administered on 12/07/16 12 :32; Admin Dose 1 SPRAY; Start 09/29/16 at 11:02 Phenol (Cepastat Lozenge) 1 lozenge Q2H PRN MT SORE THROAT Last administered on 11/02/16 01:02; Admin Dose 1 LOZENGE; Start 10/01/16 at 19:00 IV Flush (NS 10 ml) 10 ml PRN PRN IV IV PROTOCOL Last administered on 11/17/16 03:20; Admin Dose 10 ML; Start 10/02/16 at 19:00 Hydromorphone HCl (Dilaudid) 0.5 mg Q4H PRN IV PAIN Last administered on 22:31; Admin Dose 0.5 MG; Start 10/06/16 at 18:30 Potassium Chloride (Potassium Chloride Pwd/Soln) 20 meq DAILY GTB Last administered on 12/07/16 09:24; Admin Dose 20 MEQ; Start 10/30/16 at 12:00 Acetaminophen (Tylenol Liquid) 650 mg Q6H PRN PEG PAIN AND OR ELEVATED TEMP Last administered on 12/07/16 12:32; Admin Dose 650 MG; Start 11/16/16 at 20:04 Alprazolam (Xanax) 0.5 mg Q12H PRN PEG ANXIETY Last administered on 11/20/16 05 :30; Admin Dose 0.5 MG; Start 11/16/16 at 20:30 Ascorbic Acid (Vitamin C) 500 mg BID PEG Last administered on 12/07/16 09:23; Admin Dose 500 MG; Start 11/16/16 at 21:00 Atorvastatin Calcium (Lipitor) 20 mg QHS PEG Last administered on 12/06/16 21: 14; Admin Dose 20 MG; Start 11/16/16 at 21:00 Diazepam (Valium) 10 mg DAILY PEG Last administered on 12/07/16 09:23; Admin Dose 10 MG; Start 11/17/16 at 09:00 Duloxetine HCl (Cymbalta) 20 mg DAILY PEG Last administered on 12/07/16 09:22 ; Admin Dose 20 MG; Start 11/17/16 at 09:00 Lactobacillus Acidophilus (Florajen3 Capsule) 1 each TID PEG Last administered on 12/07/16 12:32; Admin Dose 1 EACH; Start 11/16/16 at 21:00 Promethazine HCl/ Codeine (Phenergan/ Codeine) 10 ml BID PRN PEG COUGH Last administered on 11/30/16 09:36; Admin Dose 10 ML; Start 11/16/16 at 20:00 Zolpidem Tartrate (Ambien) 5 mg QHS PRN PEG INSOMNIA; Start 11/16/16 at 20:00 Docusate Sodium (Colace Liquid Cup) 100 mg Q12 PRN GTB CONSTIPATION; Start 11/16 at 20:00 Oxycodone HCl (Roxicodone) 10 mg Q4H PO Last administered on 12/07/16 12:32; Admin Dose 10 MG; Start 11/20/16 at 17:30 Midodrine (Proamatine) 2.5 mg TID@08,12,17 NGT Last administered on 12/07/16 13:53; Admin Dose 2.5 MG; Start 11/24/16 at 18:33 Furosemide (Lasix) 20 mg DAILY GTB Last administered on 12/07/16 09:22; Admin Dose 20 MG; Start 12/01/16 at 09:00 Metoprolol Tartrate (Lopressor) 12.5 mg BID PO Last administered on 12/07/16 09:23; Admin Dose 12.5 MG; Start 12/03/16 at 21:00 RUBIN MAYEN NP Dec 07, 2016 14:44
--- NOTE | 2016-12-07 15:01 | PN ---
Date/Time of Note Date/Time of Note DATE: 12/07/16 TIME: 14:59 Assessment/Plan VTE Prophylaxis VTE Prophylaxis Intervention: SCD's Lines/Catheters IV Catheter Type (from [facility], [place]): PICC Line Central line still needed: No Urinary Cath still in place: Yes Reason Cath still needed: urinary retention Assessment/Plan Chief Complaint/Hosp Course Patient is a 66-year-old female with anemia and cancer presents for anemia and leukocytosis. The patient was sent by Dr. Dozier from [facility] for admission. The patient said that she was "not feeling well all weekend". She was brought in by ambulance. She said that she had a fever but did not check her temperature. She has had cough and urinary symptoms as well as sore throat. The patient had peristent hypotension but no sycnope and remains stabe with no chest pain and no overt CHF Problems: Assessment/Plan Sepsis Respiratory failure Cardiopulmonary Arrest Hypotension, improved Acute decompensated diastolic congestive heart failure Pulmonary hypertension Preserved ejection fraction Tricuspid valve regurgitation Lung cancer SVT -Continue beta-belinda as heart rate and blood pressure permits. -Continue Lasix as blood pressure renal function permits. Maintain potassium above 4.0 and magnesium above 2.0, -ContinueMidodrine. Subjective 24 Hr Interval Summary Free Text/Dictation The patietn with no change Exam/Review of Systems Vital Signs Vitals Vital Signs Date Time Temp Pulse Resp B/P Pulse Ox O2 Delivery O2 Flow Rate FiO2 12/07/16 14:56 98.4 91 18 101/68 97 12/07/16 11:10 35 12/06/16 07:36 Mechanical Ventilator Intake and Output 12/06/16 12/06/16 12/07/16 15:00 23:00 07:00 Intake Total 800 ml 910 ml Output Total 1000 ml 8500 ml Balance -200 ml -7590 ml Results Result Diagram: 12/07/1615 12/07/16 0615 Results 24 hrs Laboratory Tests Test 12/07/16 06:15 White Blood Count 15.0 H Red Blood Count 2.88 L Hemoglobin 7.6 L Hematocrit 25.1 L Mean Corpuscular Volume 87.2 Mean Corpuscular Hemoglobin 26.4 L Mean Corpuscular Hemoglobin Concent 30.3 L Red Cell Distribution Width 16.8 H Platelet Count 322 Mean Platelet Volume 10.0 Neutrophils % 76.0 Lymphocytes % 11.4 L Monocytes % 8.4 Eosinophils % 3.2 Basophils % 0.5 Nucleated Red Blood Cells % 0.0 Neutrophils # 11.4 H Lymphocytes # 1.7 Monocytes # 1.3 H Eosinophils # 0.5 Basophils # 0.1 Nucleated Red Blood Cells # 0.0 Sodium Level 131 L Potassium Level 4.0 Chloride Level 97 Carbon Dioxide Level 30 Anion Gap 8 Blood Urea Nitrogen 18 Creatinine 0.50 Glucose Level 107 Calcium Level 7.6 L Medications Medications Current Medications Ondansetron HCl (Zofran Inj) 4 mg Q6 PRN IV NAUSEA AND/OR VOMITING; Start 09/26 at 22:30 Collagenase (Santyl) 1 applic DAILY TOP Last administered on 12/07/16 09:24; Admin Dose 1 APPLIC; Start 09/27/16 at 09:00 Collagenase (Santyl) 1 applic PRN PRN TOP SOILED OR DISLODGED DRESSING; Start 09/27/16 at 05:00 Lansoprazole (Prevacid) 30 mg DAILY@06 GTB Last administered on 12/07/16 05:56 ; Admin Dose 30 MG; Start 09/28/16 at 06:00 Cromolyn Sodium (Nasalcrom) 1 spray QID NASAL Last administered on 12/07/16 12 :32; Admin Dose 1 SPRAY; Start 09/29/16 at 11:02 Phenol (Cepastat Lozenge) 1 lozenge Q2H PRN MT SORE THROAT Last administered on 11/02/16 01:02; Admin Dose 1 LOZENGE; Start 10/01/16 at 19:00 IV Flush (NS 10 ml) 10 ml PRN PRN IV IV PROTOCOL Last administered on 11/17/16 03:20; Admin Dose 10 ML; Start 10/02/16 at 19:00 Hydromorphone HCl (Dilaudid) 0.5 mg Q4H PRN IV PAIN Last administered on 22:31; Admin Dose 0.5 MG; Start 10/06/16 at 18:30 Potassium Chloride (Potassium Chloride Pwd/Soln) 20 meq DAILY GTB Last administered on 12/07/16 09:24; Admin Dose 20 MEQ; Start 10/30/16 at 12:00 Acetaminophen (Tylenol Liquid) 650 mg Q6H PRN PEG PAIN AND OR ELEVATED TEMP Last administered on 12/07/16 12:32; Admin Dose 650 MG; Start 11/16/16 at 20:04 Alprazolam (Xanax) 0.5 mg Q12H PRN PEG ANXIETY Last administered on 11/20/16 05 :30; Admin Dose 0.5 MG; Start 11/16/16 at 20:30 Ascorbic Acid (Vitamin C) 500 mg BID PEG Last administered on 12/07/16 09:23; Admin Dose 500 MG; Start 11/16/16 at 21:00 Atorvastatin Calcium (Lipitor) 20 mg QHS PEG Last administered on 12/06/16 21: 14; Admin Dose 20 MG; Start 11/16/16 at 21:00 Diazepam (Valium) 10 mg DAILY PEG Last administered on 12/07/16 09:23; Admin Dose 10 MG; Start 11/17/16 at 09:00 Duloxetine HCl (Cymbalta) 20 mg DAILY PEG Last administered on 12/07/16 09:22 ; Admin Dose 20 MG; Start 11/17/16 at 09:00 Lactobacillus Acidophilus (Florajen3 Capsule) 1 each TID PEG Last administered on 12/07/16 12:32; Admin Dose 1 EACH; Start 11/16/16 at 21:00 Promethazine HCl/ Codeine (Phenergan/ Codeine) 10 ml BID PRN PEG COUGH Last administered on 11/30/16 09:36; Admin Dose 10 ML; Start 11/16/16 at 20:00 Zolpidem Tartrate (Ambien) 5 mg QHS PRN PEG INSOMNIA; Start 11/16/16 at 20:00 Docusate Sodium (Colace Liquid Cup) 100 mg Q12 PRN GTB CONSTIPATION; Start 11/16 at 20:00 Oxycodone HCl (Roxicodone) 10 mg Q4H PO Last administered on 12/07/16 12:32; Admin Dose 10 MG; Start 11/20/16 at 17:30 Midodrine (Proamatine) 2.5 mg TID@08,12,17 NGT Last administered on 12/07/16 13:53; Admin Dose 2.5 MG; Start 11/24/16 at 18:33 Furosemide (Lasix) 20 mg DAILY GTB Last administered on 12/07/16 09:22; Admin Dose 20 MG; Start 12/01/16 at 09:00 Metoprolol Tartrate (Lopressor) 12.5 mg BID PO Last administered on 12/07/16 09:23; Admin Dose 12.5 MG; Start 12/03/16 at 21:00 RALPH LUCAS MD Dec 07, 2016 15:00
--- NOTE | 2016-12-07 15:29 | PN ---
Date/Time of Note Date/Time of Note DATE: 12/07/16 TIME: 15:27 Assessment/Plan Lines/Catheters IV Catheter Type (from [facility] PICC Line Urinary Cath still in place: Yes Assessment/Plan Assessment/Plan - Status post tracheostomy by Dr. White, ENT on 11/28. - Status post cardiopulmonary arrest. - Septic shock, resolving. Dr. Coleman is following in infectious disease consultation. Completed the course of antibiotics. - Acute respiratory failure. Continue breathing treatment, oxygen supply supplementation and bronchodilators. Dr. Lopez is following in pulmonology consultation. - Left lung squamous carcinoma. The patient is not a candidate for chemotherapy. Dr. Calvo is following in oncology consultation. - Chronic obstructive pulmonary disease. Patient with long history of tobacco use. - Anemia of chronic disease. Continue to monitor hemoglobin and hematocrit. - Dysphagia with G-tube. Continue G-tube feeding, monitor residual. Continue aspiration precautions. - Hypothyroidism. Continue Synthroid. - Chronic pain. - Failure to thrive. Continue sequential compression device for deep venous thrombosis prophylaxis and Prevacid for peptic ulcer disease prophylaxis. Further recommendations based on clinical course. Plan of care discussed with Dr. Dozier. Subjective 24 Hr Interval Summary Free Text/Dictation afebrile, tolerating feeding, dw staff. Constitutional: requiring IVF, requiring O2 Exam/Review of Systems Vital Signs Vitals Vital Signs Date Time Temp Pulse Resp B/P Pulse Ox O2 Delivery O2 Flow Rate FiO2 12/07/16 14:56 98.4 91 18 101/68 97 12/07/16 11:10 35 12/06/16 07:36 Mechanical Ventilator Intake and Output 12/06/16 12/06/16 12/07/16 15:00 23:00 07:00 Intake Total 800 ml 910 ml Output Total 1000 ml 8500 ml Balance -200 ml -7590 ml Exam Constitutional: alert Neck: other (trach intact) Respiratory: clear to auscultation, normal air movement Cardiovascular: nl pulses Gastrointestinal: soft Musculoskeletal: muscle weakness Extremities: normal pulses Neurological: other Results Result Diagram: 12/07/16 0615 12/07/16 0615 Results 24 hrs Laboratory Tests Test 12/07/16 06:15 White Blood Count 15.0 H Red Blood Count 2.88 L Hemoglobin 7.6 L Hematocrit 25.1 L Mean Corpuscular Volume 87.2 Mean Corpuscular Hemoglobin 26.4 L Mean Corpuscular Hemoglobin Concent 30.3 L Red Cell Distribution Width 16.8 H Platelet Count 322 Mean Platelet Volume 10.0 Neutrophils % 76.0 Lymphocytes % 11.4 L Monocytes % 8.4 Eosinophils % 3.2 Basophils % 0.5 Nucleated Red Blood Cells % 0.0 Neutrophils # 11.4 H Lymphocytes # 1.7 Monocytes # 1.3 H Eosinophils # 0.5 Basophils # 0.1 Nucleated Red Blood Cells # 0.0 Sodium Level 131 L Potassium Level 4.0 Chloride Level 97 Carbon Dioxide Level 30 Anion Gap 8 Blood Urea Nitrogen 18 Creatinine 0.50 Glucose Level 107 Calcium Level 7.6 L Medications Medications Current Medications Ondansetron HCl (Zofran Inj) 4 mg Q6 PRN IV NAUSEA AND/OR VOMITING; Start 09/26 at 22:30 Collagenase (Santyl) 1 applic DAILY TOP Last administered on 12/07/16 09:24; Admin Dose 1 APPLIC; Start 09/27/16 at 09:00 Collagenase (Santyl) 1 applic PRN PRN TOP SOILED OR DISLODGED DRESSING; Start 09/27/16 at 05:00 Lansoprazole (Prevacid) 30 mg DAILY@06 GTB Last administered on 12/07/16 05:56 ; Admin Dose 30 MG; Start 09/28/16 at 06:00 Cromolyn Sodium (Nasalcrom) 1 spray QID NASAL Last administered on 12/07/16 12 :32; Admin Dose 1 SPRAY; Start 09/29/16 at 11:02 Phenol (Cepastat Lozenge) 1 lozenge Q2H PRN MT SORE THROAT Last administered on 11/02/16 01:02; Admin Dose 1 LOZENGE; Start 10/01/16 at 19:00 IV Flush (NS 10 ml) 10 ml PRN PRN IV IV PROTOCOL Last administered on 11/17/16 03:20; Admin Dose 10 ML; Start 10/02/16 at 19:00 Hydromorphone HCl (Dilaudid) 0.5 mg Q4H PRN IV PAIN Last administered on 22:31; Admin Dose 0.5 MG; Start 10/06/16 at 18:30 Potassium Chloride (Potassium Chloride Pwd/Soln) 20 meq DAILY GTB Last administered on 12/07/16 09:24; Admin Dose 20 MEQ; Start 10/30/16 at 12:00 Acetaminophen (Tylenol Liquid) 650 mg Q6H PRN PEG PAIN AND OR ELEVATED TEMP Last administered on 12/07/16 12:32; Admin Dose 650 MG; Start 11/16/16 at 20:04 Alprazolam (Xanax) 0.5 mg Q12H PRN PEG ANXIETY Last administered on 11/20/16 05 :30; Admin Dose 0.5 MG; Start 11/16/16 at 20:30 Ascorbic Acid (Vitamin C) 500 mg BID PEG Last administered on 12/07/16 09:23; Admin Dose 500 MG; Start 11/16/16 at 21:00 Atorvastatin Calcium (Lipitor) 20 mg QHS PEG Last administered on 12/06/16 21: 14; Admin Dose 20 MG; Start 11/16/16 at 21:00 Diazepam (Valium) 10 mg DAILY PEG Last administered on 12/07/16 09:23; Admin Dose 10 MG; Start 11/17/16 at 09:00 Duloxetine HCl (Cymbalta) 20 mg DAILY PEG Last administered on 12/07/16 09:22 ; Admin Dose 20 MG; Start 11/17/16 at 09:00 Lactobacillus Acidophilus (Florajen3 Capsule) 1 each TID PEG Last administered on 12/07/16 12:32; Admin Dose 1 EACH; Start 11/16/16 at 21:00 Promethazine HCl/ Codeine (Phenergan/ Codeine) 10 ml BID PRN PEG COUGH Last administered on 11/30/16 09:36; Admin Dose 10 ML; Start 11/16/16 at 20:00 Zolpidem Tartrate (Ambien) 5 mg QHS PRN PEG INSOMNIA; Start 11/16/16 at 20:00 Docusate Sodium (Colace Liquid Cup) 100 mg Q12 PRN GTB CONSTIPATION; Start 11/16 at 20:00 Oxycodone HCl (Roxicodone) 10 mg Q4H PO Last administered on 12/07/16 12:32; Admin Dose 10 MG; Start 11/20/16 at 17:30 Midodrine (Proamatine) 2.5 mg TID@08,12,17 NGT Last administered on 12/07/16 13:53; Admin Dose 2.5 MG; Start 11/24/16 at 18:33 Furosemide (Lasix) 20 mg DAILY GTB Last administered on 12/07/16 09:22; Admin Dose 20 MG; Start 12/01/16 at 09:00 Metoprolol Tartrate (Lopressor) 12.5 mg BID PO Last administered on 12/07/16 09:23; Admin Dose 12.5 MG; Start 12/03/16 at 21:00 VIKASH CASTANEDA Dec 07, 2016 15:29
[2016-12-07] MEDS ORDERED: VANCOMYCIN IV PER PHARMACY XX SCH (17:30)
[2016-12-07] MEDS ORDERED: VANCOMYCIN 1 GM in NS 250 ML IVPB SCH (18:00)
--- NOTE | 2016-12-07 19:13 | CONS ---
Date/Time of Note Date/Time of Note DATE: 12/07/16 TIME: 19:12 Assessment/Plan Assessment/Plan Additional Assessment/Plan 1. acute on chronic resp failure intubated on ventilator- not able to wean off s/p Tracheostomy 2. PEA s/p resuscitation 3. Hyponatremia multifactorial 4. Pneumonia. 3. Lung cancer. 4. History of Clostridium difficile colitis and recurrent urinary tract infection. 5. Unstageable sacral wound, status post debridement with wound VAC application. PLAN: conitnue IV abx, ID following, S/p Tracheostomy making good urine Na 131, Cr normal will follow up Consultation Date/Type/Reason Admit Date/Time Sep 26, 2016 at 20:07 Type of Consultation: NEPHROLOGY Referring Provider: DRE LOBATO MD 24 HR Interval Summary Free Text/Dictation na 131, Cr normal Exam/Review of Systems Vital Signs Vitals Vital Signs Date Time Temp Pulse Resp B/P Pulse Ox O2 Delivery O2 Flow Rate FiO2 12/07/16 17:39 97 12/07/16 17:15 23 96 35 12/07/16 14:56 98.4 101/68 12/06/16 07:36 Mechanical Ventilator Intake and Output 12/06/16 12/06/16 12/07/16 15:00 23:00 07:00 Intake Total 800 ml 910 ml Output Total 1000 ml 8500 ml Balance -200 ml -7590 ml Results Result Diagram: 12/07/16 0615 12/07/16 0615 Results 24 hrs Laboratory Tests Test 12/07/16 06:15 12/07/16 15:50 White Blood Count 15.0 H Red Blood Count 2.88 L Hemoglobin 7.6 L Hematocrit 25.1 L Mean Corpuscular Volume 87.2 Mean Corpuscular Hemoglobin 26.4 L Mean Corpuscular Hemoglobin Concent 30.3 L Red Cell Distribution Width 16.8 H Platelet Count 322 Mean Platelet Volume 10.0 Neutrophils % 76.0 Lymphocytes % 11.4 L Monocytes % 8.4 Eosinophils % 3.2 Basophils % 0.5 Nucleated Red Blood Cells % 0.0 Neutrophils # 11.4 H Lymphocytes # 1.7 Monocytes # 1.3 H Eosinophils # 0.5 Basophils # 0.1 Nucleated Red Blood Cells # 0.0 Sodium Level 131 L Potassium Level 4.0 Chloride Level 97 Carbon Dioxide Level 30 Anion Gap 8 Blood Urea Nitrogen 18 Creatinine 0.50 Glucose Level 107 Calcium Level 7.6 L Magnesium Level 1.9 Medications Medications Current Medications Ondansetron HCl (Zofran Inj) 4 mg Q6 PRN IV NAUSEA AND/OR VOMITING; Start 09/26 at 22:30 Collagenase (Santyl) 1 applic DAILY TOP Last administered on 12/07/16 09:24; Admin Dose 1 APPLIC; Start 09/27/16 at 09:00 Collagenase (Santyl) 1 applic PRN PRN TOP SOILED OR DISLODGED DRESSING; Start 09/27/16 at 05:00 Lansoprazole (Prevacid) 30 mg DAILY@06 GTB Last administered on 12/07/16 05:56 ; Admin Dose 30 MG; Start 09/28/16 at 06:00 Cromolyn Sodium (Nasalcrom) 1 spray QID NASAL Last administered on 12/07/16 18 :39; Admin Dose 1 SPRAY; Start 09/29/16 at 11:02 Phenol (Cepastat Lozenge) 1 lozenge Q2H PRN MT SORE THROAT Last administered on 11/02/16 01:02; Admin Dose 1 LOZENGE; Start 10/01/16 at 19:00 IV Flush (NS 10 ml) 10 ml PRN PRN IV IV PROTOCOL Last administered on 11/17/16 03:20; Admin Dose 10 ML; Start 10/02/16 at 19:00 Hydromorphone HCl (Dilaudid) 0.5 mg Q4H PRN IV PAIN Last administered on 22:31; Admin Dose 0.5 MG; Start 10/06/16 at 18:30 Potassium Chloride (Potassium Chloride Pwd/Soln) 20 meq DAILY GTB Last administered on 12/07/16 09:24; Admin Dose 20 MEQ; Start 10/30/16 at 12:00 Acetaminophen (Tylenol Liquid) 650 mg Q6H PRN PEG PAIN AND OR ELEVATED TEMP Last administered on 12/07/16 12:32; Admin Dose 650 MG; Start 11/16/16 at 20:04 Alprazolam (Xanax) 0.5 mg Q12H PRN PEG ANXIETY Last administered on 11/20/16 05 :30; Admin Dose 0.5 MG; Start 11/16/16 at 20:30 Ascorbic Acid (Vitamin C) 500 mg BID PEG Last administered on 12/07/16 09:23; Admin Dose 500 MG; Start 11/16/16 at 21:00 Atorvastatin Calcium (Lipitor) 20 mg QHS PEG Last administered on 12/06/16 21: 14; Admin Dose 20 MG; Start 11/16/16 at 21:00 Diazepam (Valium) 10 mg DAILY PEG Last administered on 12/07/16 09:23; Admin Dose 10 MG; Start 11/17/16 at 09:00 Duloxetine HCl (Cymbalta) 20 mg DAILY PEG Last administered on 12/07/16 09:22 ; Admin Dose 20 MG; Start 11/17/16 at 09:00 Lactobacillus Acidophilus (Florajen3 Capsule) 1 each TID PEG Last administered on 12/07/16 12:32; Admin Dose 1 EACH; Start 11/16/16 at 21:00 Promethazine HCl/ Codeine (Phenergan/ Codeine) 10 ml BID PRN PEG COUGH Last administered on 11/30/16 09:36; Admin Dose 10 ML; Start 11/16/16 at 20:00 Zolpidem Tartrate (Ambien) 5 mg QHS PRN PEG INSOMNIA; Start 11/16/16 at 20:00 Docusate Sodium (Colace Liquid Cup) 100 mg Q12 PRN GTB CONSTIPATION; Start 11/16 at 20:00 Oxycodone HCl (Roxicodone) 10 mg Q4H PO Last administered on 12/07/16 18:40; Admin Dose 10 MG; Start 11/20/16 at 17:30 Midodrine (Proamatine) 2.5 mg TID@08,12,17 NGT Last administered on 12/07/16 13:53; Admin Dose 2.5 MG; Start 11/24/16 at 18:33 Furosemide (Lasix) 20 mg DAILY GTB Last administered on 12/07/16 09:22; Admin Dose 20 MG; Start 12/01/16 at 09:00 Metoprolol Tartrate 12.5 mg 12.5 mg BID PO Last administered on 12/07/16 09:23 ; Admin Dose 12.5 MG; Start 12/03/16 at 21:00 Vancomycin HCl 250 ml @ 125 mls/hr ONCE IVPB ; Start 12/07/16 at 18:00; Stop at 23:56 Vancomycin HCl (Vancocin) 100 ml @ 100 mls/hr Q12H IVPB ; Start 12/08/16 at 06: 00 DIONNE SAUCEDA MD Dec 07, 2016 19:13
[2016-12-07] MEDS: ATORVASTATIN 20 MG TAB PEG SCH (21:27)
--- NOTE | 2016-12-07 23:26 | CONS ---
Date/Time of Note Date/Time of Note DATE: 12/07/16 TIME: 23:26 Assessment/Plan Assessment/Plan Chief Complaint/Hosp Course Left lung squamous carcinoma. The patient is not a candidate for chemotherapy. Anemia of chronic disease. post 10 u prbc monitor blood count closely transfuse as needed to keep HB above 8 Acute respiratory insufficiency requiring BiPAP. trach -per daughter's wishes Acute shock, septic versus hypovolemic. tachycardia with episode of SVT. Chronic obstructive pulmonary disease. Dysphagia with G-tube. Continue current G-tube feeding. Hypothyroidism. Continue Synthroid. Problems: Consultation Date/Type/Reason Admit Date/Time Sep 26, 2016 at 20:07 Initial Consult Date 10/19/16 Type of Consultation: HEMEON Referring Provider: DRE LOBATO MD 24 HR Interval Summary Free Text/Dictation STABLE NO NEW EVENTS Exam/Review of Systems Vital Signs Vitals Vital Signs Date Time Temp Pulse Resp B/P Pulse Ox O2 Delivery O2 Flow Rate FiO2 12/07/16 20:16 110 12/07/16 19:12 98.6 20 112/81 98 12/07/16 17:15 35 12/06/16 07:36 Mechanical Ventilator Intake and Output 12/06/16 12/06/16 12/07/16 15:00 23:00 07:00 Intake Total 800 ml 910 ml Output Total 1000 ml 8500 ml Balance -200 ml -7590 ml Exam Constitutional: alert Neck: other (trach intact) Respiratory: clear to auscultation, normal air movement Cardiovascular: nl pulses Gastrointestinal: soft Musculoskeletal: muscle weakness Extremities: normal pulses Neurological: other Results Result Diagram: 12/07/16 0615 12/07/16 0615 Results 24 hrs Laboratory Tests Test 12/07/16 06:15 12/07/16 15:50 White Blood Count 15.0 H Red Blood Count 2.88 L Hemoglobin 7.6 L Hematocrit 25.1 L Mean Corpuscular Volume 87.2 Mean Corpuscular Hemoglobin 26.4 L Mean Corpuscular Hemoglobin Concent 30.3 L Red Cell Distribution Width 16.8 H Platelet Count 322 Mean Platelet Volume 10.0 Neutrophils % 76.0 Lymphocytes % 11.4 L Monocytes % 8.4 Eosinophils % 3.2 Basophils % 0.5 Nucleated Red Blood Cells % 0.0 Neutrophils # 11.4 H Lymphocytes # 1.7 Monocytes # 1.3 H Eosinophils # 0.5 Basophils # 0.1 Nucleated Red Blood Cells # 0.0 Sodium Level 131 L Potassium Level 4.0 Chloride Level 97 Carbon Dioxide Level 30 Anion Gap 8 Blood Urea Nitrogen 18 Creatinine 0.50 Glucose Level 107 Calcium Level 7.6 L Magnesium Level 1.9 Medications Medications Current Medications Ondansetron HCl (Zofran Inj) 4 mg Q6 PRN IV NAUSEA AND/OR VOMITING; Start 09/26 at 22:30 Collagenase (Santyl) 1 applic DAILY TOP Last administered on 12/07/16 09:24; Admin Dose 1 APPLIC; Start 09/27/16 at 09:00 Collagenase (Santyl) 1 applic PRN PRN TOP SOILED OR DISLODGED DRESSING; Start 09/27/16 at 05:00 Lansoprazole (Prevacid) 30 mg DAILY@06 GTB Last administered on 12/07/16 05:56 ; Admin Dose 30 MG; Start 09/28/16 at 06:00 Cromolyn Sodium (Nasalcrom) 1 spray QID NASAL Last administered on 12/07/16 21 :28; Admin Dose 1 SPRAY; Start 09/29/16 at 11:02 Phenol (Cepastat Lozenge) 1 lozenge Q2H PRN MT SORE THROAT Last administered on 11/02/16 01:02; Admin Dose 1 LOZENGE; Start 10/01/16 at 19:00 IV Flush (NS 10 ml) 10 ml PRN PRN IV IV PROTOCOL Last administered on 11/17/16 03:20; Admin Dose 10 ML; Start 10/02/16 at 19:00 Hydromorphone HCl (Dilaudid) 0.5 mg Q4H PRN IV PAIN Last administered on 22:31; Admin Dose 0.5 MG; Start 10/06/16 at 18:30 Potassium Chloride (Potassium Chloride Pwd/Soln) 20 meq DAILY GTB Last administered on 12/07/16 09:24; Admin Dose 20 MEQ; Start 10/30/16 at 12:00 Acetaminophen (Tylenol Liquid) 650 mg Q6H PRN PEG PAIN AND OR ELEVATED TEMP Last administered on 12/07/16 12:32; Admin Dose 650 MG; Start 11/16/16 at 20:04 Alprazolam (Xanax) 0.5 mg Q12H PRN PEG ANXIETY Last administered on 11/20/16 05 :30; Admin Dose 0.5 MG; Start 11/16/16 at 20:30 Ascorbic Acid (Vitamin C) 500 mg BID PEG Last administered on 12/07/16 21:27; Admin Dose 500 MG; Start 11/16/16 at 21:00 Atorvastatin Calcium (Lipitor) 20 mg QHS PEG Last administered on 12/07/16 21: 27; Admin Dose 20 MG; Start 11/16/16 at 21:00 Diazepam (Valium) 10 mg DAILY PEG Last administered on 12/07/16 09:23; Admin Dose 10 MG; Start 11/17/16 at 09:00 Duloxetine HCl (Cymbalta) 20 mg DAILY PEG Last administered on 12/07/16 09:22 ; Admin Dose 20 MG; Start 11/17/16 at 09:00 Lactobacillus Acidophilus (Florajen3 Capsule) 1 each TID PEG Last administered on 12/07/16 21:28; Admin Dose 1 EACH; Start 11/16/16 at 21:00 Promethazine HCl/ Codeine (Phenergan/ Codeine) 10 ml BID PRN PEG COUGH Last administered on 11/30/16 09:36; Admin Dose 10 ML; Start 11/16/16 at 20:00 Zolpidem Tartrate (Ambien) 5 mg QHS PRN PEG INSOMNIA; Start 11/16/16 at 20:00 Docusate Sodium (Colace Liquid Cup) 100 mg Q12 PRN GTB CONSTIPATION; Start 11/16 at 20:00 Oxycodone HCl (Roxicodone) 10 mg Q4H PO Last administered on 12/07/16 21:27; Admin Dose 10 MG; Start 11/20/16 at 17:30 Midodrine (Proamatine) 2.5 mg TID@08,12,17 NGT Last administered on 12/07/16 13:53; Admin Dose 2.5 MG; Start 11/24/16 at 18:33 Furosemide (Lasix) 20 mg DAILY GTB Last administered on 12/07/16 09:22; Admin Dose 20 MG; Start 12/01/16 at 09:00 Metoprolol Tartrate 12.5 mg 12.5 mg BID PO Last administered on 12/07/16 09:23 ; Admin Dose 12.5 MG; Start 12/03/16 at 21:00 Vancomycin HCl 250 ml @ 125 mls/hr ONCE IVPB Last administered on 12/07/16 21 :28; Admin Dose 125 MLS/HR; Start 12/07/16 at 18:00; Stop 12/07/16 at 23:56 Vancomycin HCl (Vancocin) 100 ml @ 100 mls/hr Q12H IVPB ; Start 12/08/16 at 06: 00 DYLLAN CARRION MD Dec 07, 2016 23:26
[2016-12-08] VITALS (23 sets, daily range): BP systolic 96–110; BP diastolic 58–64; PULSE 101–130; RESP 18–26
[2016-12-08] MEDS: ALPRAZOLAM 0.25 MG TAB PEG PRN (00:55)
[2016-12-08] MEDS: oxyCODONE 5 MG TAB PO SCH ×6 (00:55→21:10)
[2016-12-08] MEDS: METOPROLOL 25 MG TAB PO SCH ×3 (03:06→21:10)
[2016-12-08] MEDS: VANCOMYCIN 500MG/NS (PMX) 100 ML IVPB SCH ×3 (05:06→21:10)
[2016-12-08] MEDS: LEVOTHYROXINE 125 MCG TAB PEG SCH (05:06)
[2016-12-08] MEDS: LANSOPRAZOLE 30 MG CAP GTB SCH (05:07)
[2016-12-08 06:14] LABS: ADD SCAN DIFF NO
[2016-12-08 06:17] LABS: BASOPHIL # 0.1 10^3/ul (0.0-0.1); BASOPHILS % 0.3 % (0.0-2.0); EOSINOPHILS # 0.3 10^3/ul (0.0-0.5); EOSINOPHILS % 1.4 % (0.0-7.0); HEMATOCRIT 25.2 % (37.0-47.0); HEMOGLOBIN 7.9 g/dl (12.0-16.0); LYMPHOCYTES # 1.9 10^3/ul (0.8-2.9); LYMPHOCYTES % 8.2 % (15.0-51.0); MEAN CORPUSCULAR HEMOGLOBIN 27.4 pg (29.0-33.0); MEAN CORPUSCULAR HGB CONC 31.3 g/dl (32.0-37.0); MEAN CORPUSCULAR VOLUME 87.5 fl (82.0-101.0); MEAN PLATELET VOLUME 9.6 fl (7.4-10.4); MONOCYTE # 1.4 10^3/ul (0.3-0.9); MONOCYTES % 5.7 % (0.0-11.0); NEUTROPHIL # 19.8 10^3/ul (1.6-7.5); NEUTROPHILS % 83.7 % (39.0-77.0); PLATELET COUNT 377 10^3/UL (140-415); RED BLOOD COUNT 2.88 10^6/ul (4.20-5.40); RED CELL DISTRIBUTION WIDTH 16.7 % (11.5-14.5); WHITE BLOOD COUNT 23.7 10^3/ul (4.8-10.8)
[2016-12-08 07:02] LABS: CALCIUM 7.8 mg/dl (8.4-10.2); CREATININE 0.53 mg/dl (0.44-1.00); POTASSIUM 3.9 mmol/L (3.5-5.1)
[2016-12-08] MEDS: MIDODRINE 2.5 MG TAB NGT SCH ×3 (09:53→17:48)
[2016-12-08] MEDS: FUROSEMIDE 20 MG TAB GTB SCH (09:53)
[2016-12-08] MEDS: POTASSIUM CHLORIDE 20 MEQ POWDER FOR ORAL SOLN GTB SCH (09:54)
[2016-12-08] MEDS: DULOXETINE 20 MG CAP DR PEG SCH (09:54)
[2016-12-08] MEDS: ASCORBIC ACID 500 MG TAB PEG SCH ×2 (09:54→21:10)
[2016-12-08] MEDS: L ACIDOPHIL/B LACTIS/B LONGUM CAPSULE PEG SCH ×3 (09:55→21:10)
[2016-12-08] MEDS: COLLAGENASE 30 GM TUBE TOP SCH (09:55)
[2016-12-08] MEDS: DIAZEPAM 5 MG TAB PEG SCH (09:55)
[2016-12-08] MEDS: CROMOLYN 4% 26ML NAS INH NASAL SCH ×4 (09:56→21:11)
--- NOTE | 2016-12-08 12:46 | CONS ---
Date/Time of Note Date/Time of Note DATE: 12/08/16 TIME: 12:44 Assessment/Plan Assessment/Plan Additional Assessment/Plan Assessment recommendations; 1. Patient admitted with severe sepsis due to sacral decubitus wounds currently on broad-spectrum antibiotic coverage. 2. Status post cardiac arrest and CPR resulting in anoxic brain injury. Subsequently requiring tracheostomy . 3. Advanced COPD. 4. History of lung cancer. 5. Anemia. Continue current treatment. Prognosis is poor. Consultation Date/Type/Reason Admit Date/Time Sep 26, 2016 at 20:07 Initial Consult Date 11/14/16 Type of Consultation: Pulmonary/critical care Referring Provider: DRE LOBATO MD 24 HR Interval Summary Free Text/Dictation Patient condition remains unchanged. Remains awake and semi-responsive. Has remained hemodynamically stable. General exam; elderly woman, on ventilator via tracheostomy currently in no distress. Exam/Review of Systems Vital Signs Vitals Vital Signs Date Time Temp Pulse Resp B/P Pulse Ox O2 Delivery O2 Flow Rate FiO2 12/08/16 12:37 120 12/08/16 11:00 26 96 35 12/08/16 10:39 98.6 100/64 12/06/16 07:36 Mechanical Ventilator Intake and Output 12/07/16 12/07/16 12/08/16 15:00 23:00 07:00 Intake Total 1020 ml 1270 ml Output Total 500 ml 700 ml Balance 520 ml 570 ml Exam HEENT exam; supple neck, no JVD. No lymphadenopathy. Midline trachea. No thyromegaly. Tracheostomy in place. Patient multiple carious teeth. Chest exam; diminished but clear vessel. S1-S2 audible, no murmurs. Regular rhythm. Abdomen examination; soft, G-tube in place. Known distended. Bowel sounds audible. Extremity exam; no peripheral edema. DOCUMENTUM CONSULTANT examination; patient is awake but does not follow any commands. Results Result Diagram: 12/08/16 0515 12/08/16 0515 Results 24 hrs Laboratory Tests Test 12/07/16 15:50 12/08/16 05:15 Magnesium Level 1.9 White Blood Count 23.7 #H Red Blood Count 2.88 L Hemoglobin 7.9 L Hematocrit 25.2 L Mean Corpuscular Volume 87.5 Mean Corpuscular Hemoglobin 27.4 L Mean Corpuscular Hemoglobin Concent 31.3 L Red Cell Distribution Width 16.7 H Platelet Count 377 Mean Platelet Volume 9.6 Neutrophils % 83.7 H Lymphocytes % 8.2 L Monocytes % 5.7 Eosinophils % 1.4 Basophils % 0.3 Nucleated Red Blood Cells % 0.0 Neutrophils # 19.8 H Lymphocytes # 1.9 Monocytes # 1.4 H Eosinophils # 0.3 Basophils # 0.1 Nucleated Red Blood Cells # 0.0 Sodium Level 131 L Potassium Level 3.9 Chloride Level 96 L Carbon Dioxide Level 30 Anion Gap 9 Blood Urea Nitrogen 17 Creatinine 0.53 Glucose Level 106 Calcium Level 7.8 L Medications Medications Current Medications Ondansetron HCl (Zofran Inj) 4 mg Q6 PRN IV NAUSEA AND/OR VOMITING; Start 09/26 at 22:30 Collagenase (Santyl) 1 applic DAILY TOP Last administered on 12/08/16 09:55; Admin Dose 1 APPLIC; Start 09/27/16 at 09:00 Collagenase (Santyl) 1 applic PRN PRN TOP SOILED OR DISLODGED DRESSING; Start 09/27/16 at 05:00 Lansoprazole (Prevacid) 30 mg DAILY@06 GTB Last administered on 12/08/16 05:07 ; Admin Dose 30 MG; Start 09/28/16 at 06:00 Cromolyn Sodium (Nasalcrom) 1 spray QID NASAL Last administered on 12/08/16 09 :56; Admin Dose 1 SPRAY; Start 09/29/16 at 11:02 Phenol (Cepastat Lozenge) 1 lozenge Q2H PRN MT SORE THROAT Last administered on 11/02/16 01:02; Admin Dose 1 LOZENGE; Start 10/01/16 at 19:00 IV Flush (NS 10 ml) 10 ml PRN PRN IV IV PROTOCOL Last administered on 11/17/16 03:20; Admin Dose 10 ML; Start 10/02/16 at 19:00 Hydromorphone HCl (Dilaudid) 0.5 mg Q4H PRN IV PAIN Last administered on 22:31; Admin Dose 0.5 MG; Start 10/06/16 at 18:30 Potassium Chloride (Potassium Chloride Pwd/Soln) 20 meq DAILY GTB Last administered on 12/08/16 09:54; Admin Dose 20 MEQ; Start 10/30/16 at 12:00 Acetaminophen (Tylenol Liquid) 650 mg Q6H PRN PEG PAIN AND OR ELEVATED TEMP Last administered on 12/07/16 12:32; Admin Dose 650 MG; Start 11/16/16 at 20:04 Alprazolam (Xanax) 0.5 mg Q12H PRN PEG ANXIETY Last administered on 12/08/16 00:55; Admin Dose 0.5 MG; Start 11/16/16 at 20:30 Ascorbic Acid (Vitamin C) 500 mg BID PEG Last administered on 12/08/16 09:54; Admin Dose 500 MG; Start 11/16/16 at 21:00 Atorvastatin Calcium (Lipitor) 20 mg QHS PEG Last administered on 12/07/16 21: 27; Admin Dose 20 MG; Start 11/16/16 at 21:00 Diazepam (Valium) 10 mg DAILY PEG Last administered on 12/08/16 09:55; Admin Dose 10 MG; Start 11/17/16 at 09:00 Duloxetine HCl (Cymbalta) 20 mg DAILY PEG Last administered on 12/08/16 09:54 ; Admin Dose 20 MG; Start 11/17/16 at 09:00 Lactobacillus Acidophilus (Florajen3 Capsule) 1 each TID PEG Last administered on 12/08/16 09:55; Admin Dose 1 EACH; Start 11/16/16 at 21:00 Promethazine HCl/ Codeine (Phenergan/ Codeine) 10 ml BID PRN PEG COUGH Last administered on 11/30/16 09:36; Admin Dose 10 ML; Start 11/16/16 at 20:00 Zolpidem Tartrate (Ambien) 5 mg QHS PRN PEG INSOMNIA; Start 11/16/16 at 20:00 Docusate Sodium (Colace Liquid Cup) 100 mg Q12 PRN GTB CONSTIPATION; Start 11/16 at 20:00 Oxycodone HCl (Roxicodone) 10 mg Q4H PO Last administered on 12/08/16 10:42; Admin Dose 10 MG; Start 11/20/16 at 17:30 Midodrine (Proamatine) 2.5 mg TID@08,12,17 NGT Last administered on 12/08/16 12:32; Admin Dose 2.5 MG; Start 11/24/16 at 18:33 Furosemide (Lasix) 20 mg DAILY GTB Last administered on 12/08/16 09:53; Admin Dose 20 MG; Start 12/01/16 at 09:00 Metoprolol Tartrate 12.5 mg 12.5 mg BID PO Last administered on 12/08/16 03:06 ; Admin Dose 12.5 MG; Start 12/03/16 at 21:00 Vancomycin HCl (Vancocin) 100 ml @ 100 mls/hr Q12H IVPB Last administered on 05:06; Admin Dose 100 MLS/HR; Start 12/08/16 at 06:00 Miscellaneous Information (*Rx Drug Level Order Reminder*) VANCO TROUGH @ 0, 500 ON... ONCE ONCE XX ; Start 12/09/16 at 05:00; Stop 12/09/16 at 05:01 REGINE BUCKLEY Dec 08, 2016 12:46
--- NOTE | 2016-12-08 14:06 | PN ---
Date/Time of Note Date/Time of Note DATE: 12/08/16 TIME: 14:01 Assessment/Plan VTE Prophylaxis VTE Prophylaxis Intervention: SCD's Lines/Catheters IV Catheter Type (from [facility]): PICC Line Central line still needed: Yes Urinary Cath still in place: Yes Reason Cath still needed: urinary retention Assessment/Plan Chief Complaint/Hosp Course Patient is tachycardic afebrile, awake. ASSESSMENT AND PLAN: - Recurrent sepsis with Staphylococcus bacteremia, continue vancomycin. Dr. Coleman is following an infection disease consultation. - Status post tracheostomy by Dr. White, ENT on 11/28. - Status post cardiopulmonary arrest. - Acute respiratory failure. Continue breathing treatment, oxygen supply supplementation and bronchodilators. Dr. Lopez is following in pulmonology consultation. - Left lung squamous carcinoma. The patient is not a candidate for chemotherapy. Dr. Calvo is following in oncology consultation. - Chronic obstructive pulmonary disease. Patient with long history of tobacco use. - Anemia of chronic disease. Continue to monitor hemoglobin and hematocrit. - Dysphagia with G-tube. Continue G-tube feeding, monitor residual. Continue aspiration precautions. - Hypothyroidism. Continue Synthroid. - Chronic pain. - Failure to thrive. Continue sequential compression device for deep venous thrombosis prophylaxis and Prevacid for peptic ulcer disease prophylaxis. Further recommendations based on clinical course. Plan of care discussed with Dr. Dozier. Problems: Exam/Review of Systems Vital Signs Vitals Vital Signs Date Time Temp Pulse Resp B/P Pulse Ox O2 Delivery O2 Flow Rate FiO2 12/08/16 12:37 120 12/08/16 11:00 26 96 35 12/08/16 10:39 98.6 100/64 12/06/16 07:36 Mechanical Ventilator Intake and Output 12/07/16 12/07/16 12/08/16 15:00 23:00 07:00 Intake Total 1020 ml 1270 ml Output Total 500 ml 700 ml Balance 520 ml 570 ml Exam Constitutional: frail Head: normocephalic ENMT: other (tracheostomy) Respiratory: diminished breath sounds Cardiovascular: nl pulses Gastrointestinal: non-tender, other (G-tube), soft Extremities: normal pulses Skin: other (Multiple wounds) Results Result Diagram: 12/08/16 0515 12/08/16 0515 Results 24 hrs Laboratory Tests Test 12/07/16 15:50 12/08/16 05:15 Magnesium Level 1.9 White Blood Count 23.7 #H Red Blood Count 2.88 L Hemoglobin 7.9 L Hematocrit 25.2 L Mean Corpuscular Volume 87.5 Mean Corpuscular Hemoglobin 27.4 L Mean Corpuscular Hemoglobin Concent 31.3 L Red Cell Distribution Width 16.7 H Platelet Count 377 Mean Platelet Volume 9.6 Neutrophils % 83.7 H Lymphocytes % 8.2 L Monocytes % 5.7 Eosinophils % 1.4 Basophils % 0.3 Nucleated Red Blood Cells % 0.0 Neutrophils # 19.8 H Lymphocytes # 1.9 Monocytes # 1.4 H Eosinophils # 0.3 Basophils # 0.1 Nucleated Red Blood Cells # 0.0 Sodium Level 131 L Potassium Level 3.9 Chloride Level 96 L Carbon Dioxide Level 30 Anion Gap 9 Blood Urea Nitrogen 17 Creatinine 0.53 Glucose Level 106 Calcium Level 7.8 L Medications Medications Current Medications Ondansetron HCl (Zofran Inj) 4 mg Q6 PRN IV NAUSEA AND/OR VOMITING; Start 09/26 at 22:30 Collagenase (Santyl) 1 applic DAILY TOP Last administered on 12/08/16 09:55; Admin Dose 1 APPLIC; Start 09/27/16 at 09:00 Collagenase (Santyl) 1 applic PRN PRN TOP SOILED OR DISLODGED DRESSING; Start 09/27/16 at 05:00 Lansoprazole (Prevacid) 30 mg DAILY@06 GTB Last administered on 12/08/16 05:07 ; Admin Dose 30 MG; Start 09/28/16 at 06:00 Cromolyn Sodium (Nasalcrom) 1 spray QID NASAL Last administered on 12/08/16 13 :42; Admin Dose 1 SPRAY; Start 09/29/16 at 11:02 Phenol (Cepastat Lozenge) 1 lozenge Q2H PRN MT SORE THROAT Last administered on 11/02/16 01:02; Admin Dose 1 LOZENGE; Start 10/01/16 at 19:00 IV Flush (NS 10 ml) 10 ml PRN PRN IV IV PROTOCOL Last administered on 11/17/16 03:20; Admin Dose 10 ML; Start 10/02/16 at 19:00 Hydromorphone HCl (Dilaudid) 0.5 mg Q4H PRN IV PAIN Last administered on 22:31; Admin Dose 0.5 MG; Start 10/06/16 at 18:30 Potassium Chloride (Potassium Chloride Pwd/Soln) 20 meq DAILY GTB Last administered on 12/08/16 09:54; Admin Dose 20 MEQ; Start 10/30/16 at 12:00 Acetaminophen (Tylenol Liquid) 650 mg Q6H PRN PEG PAIN AND OR ELEVATED TEMP Last administered on 12/07/16 12:32; Admin Dose 650 MG; Start 11/16/16 at 20:04 Alprazolam (Xanax) 0.5 mg Q12H PRN PEG ANXIETY Last administered on 12/08/16 00:55; Admin Dose 0.5 MG; Start 11/16/16 at 20:30 Ascorbic Acid (Vitamin C) 500 mg BID PEG Last administered on 12/08/16 09:54; Admin Dose 500 MG; Start 11/16/16 at 21:00 Atorvastatin Calcium (Lipitor) 20 mg QHS PEG Last administered on 12/07/16 21: 27; Admin Dose 20 MG; Start 11/16/16 at 21:00 Diazepam (Valium) 10 mg DAILY PEG Last administered on 12/08/16 09:55; Admin Dose 10 MG; Start 11/17/16 at 09:00 Duloxetine HCl (Cymbalta) 20 mg DAILY PEG Last administered on 12/08/16 09:54 ; Admin Dose 20 MG; Start 11/17/16 at 09:00 Lactobacillus Acidophilus (Florajen3 Capsule) 1 each TID PEG Last administered on 12/08/16 13:38; Admin Dose 1 EACH; Start 11/16/16 at 21:00 Promethazine HCl/ Codeine (Phenergan/ Codeine) 10 ml BID PRN PEG COUGH Last administered on 11/30/16 09:36; Admin Dose 10 ML; Start 11/16/16 at 20:00 Zolpidem Tartrate (Ambien) 5 mg QHS PRN PEG INSOMNIA; Start 11/16/16 at 20:00 Docusate Sodium (Colace Liquid Cup) 100 mg Q12 PRN GTB CONSTIPATION; Start 11/16 at 20:00 Oxycodone HCl (Roxicodone) 10 mg Q4H PO Last administered on 12/08/16 10:42; Admin Dose 10 MG; Start 11/20/16 at 17:30 Midodrine (Proamatine) 2.5 mg TID@08,,17 NGT Last administered on 12/08/16 12:32; Admin Dose 2.5 MG; Start 11/24/16 at 18:33 Furosemide (Lasix) 20 mg DAILY GTB Last administered on 12/08/16 09:53; Admin Dose 20 MG; Start 12/01/16 at 09:00 Metoprolol Tartrate 12.5 mg 12.5 mg BID PO Last administered on 12/08/16 13:42 ; Admin Dose 12.5 MG; Start 12/03/16 at 21:00 Vancomycin HCl (Vancocin) 100 ml @ 100 mls/hr Q12H IVPB Last administered on 05:06; Admin Dose 100 MLS/HR; Start 12/08/16 at 06:00 Miscellaneous Information (*Rx Drug Level Order Reminder*) VANCO TROUGH @ 0, 500 ON... ONCE ONCE XX ; Start 12/09/16 at 05:00; Stop 12/09/16 at 05:01 REBECCA ISLAS Dec 08, 2016 14:05
--- NOTE | 2016-12-08 17:12 | CONS ---
Date/Time of Note Date/Time of Note DATE: 12/08/16 TIME: 17:11 Assessment/Plan Assessment/Plan Additional Assessment/Plan 1. acute on chronic resp failure intubated on ventilator- not able to wean off s/p Tracheostomy 2. PEA s/p resuscitation 3. Hyponatremia multifactorial 4. Pneumonia. 3. Lung cancer. 4. History of Clostridium difficile colitis and recurrent urinary tract infection. 5. Unstageable sacral wound, status post debridement with wound VAC application. PLAN: conitnue IV abx, ID following, S/p Tracheostomy making good urine Na 131, Cr normal will follow up Consultation Date/Type/Reason Admit Date/Time Sep 26, 2016 at 20:07 Type of Consultation: NEPHROLOGY Referring Provider: DRE LOBATO MD 24 HR Interval Summary Free Text/Dictation afebrile, BP stable Exam/Review of Systems Vital Signs Vitals Vital Signs Date Time Temp Pulse Resp B/P Pulse Ox O2 Delivery O2 Flow Rate FiO2 12/08/16 16:27 101 12/08/16 16:18 98.6 26 107/61 97 12/08/16 15:10 35 12/06/16 07:36 Mechanical Ventilator Intake and Output 12/07/16 12/07/16 12/08/16 15:00 23:00 07:00 Intake Total 1020 ml 1270 ml Output Total 500 ml 700 ml Balance 520 ml 570 ml Exam GENERAL: Chronically ill-appearing, + tracheostomy HEENT: + tracheostomy NECK: Supple. CHEST: Rise symmetrical. Breath sounds diminished. HEART: S1, S2. ABDOMEN: Soft. EXTREMITIES: No cyanosis. Results Result Diagram: 12/08/16 0515 12/08/16 0515 Results 24 hrs Laboratory Tests Test 12/08/16 05:15 White Blood Count 23.7 #H Red Blood Count 2.88 L Hemoglobin 7.9 L Hematocrit 25.2 L Mean Corpuscular Volume 87.5 Mean Corpuscular Hemoglobin 27.4 L Mean Corpuscular Hemoglobin Concent 31.3 L Red Cell Distribution Width 16.7 H Platelet Count 377 Mean Platelet Volume 9.6 Neutrophils % 83.7 H Lymphocytes % 8.2 L Monocytes % 5.7 Eosinophils % 1.4 Basophils % 0.3 Nucleated Red Blood Cells % 0.0 Neutrophils # 19.8 H Lymphocytes # 1.9 Monocytes # 1.4 H Eosinophils # 0.3 Basophils # 0.1 Nucleated Red Blood Cells # 0.0 Sodium Level 131 L Potassium Level 3.9 Chloride Level 96 L Carbon Dioxide Level 30 Anion Gap 9 Blood Urea Nitrogen 17 Creatinine 0.53 Glucose Level 106 Calcium Level 7.8 L Medications Medications Current Medications Ondansetron HCl (Zofran Inj) 4 mg Q6 PRN IV NAUSEA AND/OR VOMITING; Start 09/26 at 22:30 Collagenase (Santyl) 1 applic DAILY TOP Last administered on 12/08/16 09:55; Admin Dose 1 APPLIC; Start 09/27/16 at 09:00 Collagenase (Santyl) 1 applic PRN PRN TOP SOILED OR DISLODGED DRESSING; Start 09/27/16 at 05:00 Lansoprazole (Prevacid) 30 mg DAILY@06 GTB Last administered on 12/08/16 05:07 ; Admin Dose 30 MG; Start 09/28/16 at 06:00 Cromolyn Sodium (Nasalcrom) 1 spray QID NASAL Last administered on 12/08/16 13 :42; Admin Dose 1 SPRAY; Start 09/29/16 at 11:02 Phenol (Cepastat Lozenge) 1 lozenge Q2H PRN MT SORE THROAT Last administered on 11/02/16 01:02; Admin Dose 1 LOZENGE; Start 10/01/16 at 19:00 IV Flush (NS 10 ml) 10 ml PRN PRN IV IV PROTOCOL Last administered on 11/17/16 03:20; Admin Dose 10 ML; Start 10/02/16 at 19:00 Hydromorphone HCl (Dilaudid) 0.5 mg Q4H PRN IV PAIN Last administered on 22:31; Admin Dose 0.5 MG; Start 10/06/16 at 18:30 Potassium Chloride (Potassium Chloride Pwd/Soln) 20 meq DAILY GTB Last administered on 12/08/16 09:54; Admin Dose 20 MEQ; Start 10/30/16 at 12:00 Acetaminophen (Tylenol Liquid) 650 mg Q6H PRN PEG PAIN AND OR ELEVATED TEMP Last administered on 12/07/16 12:32; Admin Dose 650 MG; Start 11/16/16 at 20:04 Alprazolam (Xanax) 0.5 mg Q12H PRN PEG ANXIETY Last administered on 12/08/16 00:55; Admin Dose 0.5 MG; Start 11/16/16 at 20:30 Ascorbic Acid (Vitamin C) 500 mg BID PEG Last administered on 12/08/16 09:54; Admin Dose 500 MG; Start 11/16/16 at 21:00 Atorvastatin Calcium (Lipitor) 20 mg QHS PEG Last administered on 12/07/16 21: 27; Admin Dose 20 MG; Start 11/16/16 at 21:00 Diazepam (Valium) 10 mg DAILY PEG Last administered on 12/08/16 09:55; Admin Dose 10 MG; Start 11/17/16 at 09:00 Duloxetine HCl (Cymbalta) 20 mg DAILY PEG Last administered on 12/08/16 09:54 ; Admin Dose 20 MG; Start 11/17/16 at 09:00 Lactobacillus Acidophilus (Florajen3 Capsule) 1 each TID PEG Last administered on 12/08/16 13:38; Admin Dose 1 EACH; Start 11/16/16 at 21:00 Promethazine HCl/ Codeine (Phenergan/ Codeine) 10 ml BID PRN PEG COUGH Last administered on 11/30/16 09:36; Admin Dose 10 ML; Start 11/16/16 at 20:00 Zolpidem Tartrate (Ambien) 5 mg QHS PRN PEG INSOMNIA; Start 11/16/16 at 20:00 Docusate Sodium (Colace Liquid Cup) 100 mg Q12 PRN GTB CONSTIPATION; Start 11/16 at 20:00 Oxycodone HCl (Roxicodone) 10 mg Q4H PO Last administered on 12/08/16 14:06; Admin Dose 10 MG; Start 11/20/16 at 17:30 Midodrine (Proamatine) 2.5 mg TID@08,12,17 NGT Last administered on 12/08/16 12:32; Admin Dose 2.5 MG; Start 11/24/16 at 18:33 Furosemide (Lasix) 20 mg DAILY GTB Last administered on 12/08/16 09:53; Admin Dose 20 MG; Start 12/01/16 at 09:00 Metoprolol Tartrate 12.5 mg 12.5 mg BID PO Last administered on 12/08/16 13:42 ; Admin Dose 12.5 MG; Start 12/03/16 at 21:00 Vancomycin HCl (Vancocin) 100 ml @ 100 mls/hr Q12H IVPB Last administered on 05:06; Admin Dose 100 MLS/HR; Start 12/08/16 at 06:00 Miscellaneous Information (*Rx Drug Level Order Reminder*) VANCO TROUGH @ 0, 500 ON... ONCE ONCE XX ; Start 12/09/16 at 05:00; Stop 12/09/16 at 05:01 DIONNE SAUCEDA MD Dec 08, 2016 17:12
--- NOTE | 2016-12-08 17:49 | PN ---
Date/Time of Note Date/Time of Note DATE: 12/08/16 TIME: 17:48 Assessment/Plan VTE Prophylaxis VTE Prophylaxis Intervention: SCD's Lines/Catheters [facility] (from [facility] PICC Line Central line still needed: No Urinary Cath still in place: Yes Reason Cath still needed: urinary retention Assessment/Plan Chief Complaint/Hosp Course Patient is a 66-year-old female with anemia and cancer presents for anemia and leukocytosis. The patient was sent by Dr. Dozier from [facility] for admission. The patient said that she was "not feeling well all weekend". She was brought in by ambulance. She said that she had a fever but did not check her temperature. She has had cough and urinary symptoms as well as sore throat. The patient had peristent hypotension but no sycnope and remains stabe with no chest pain and no overt CHF Problems: Assessment/Plan Sepsis Respiratory failure Cardiopulmonary Arrest Hypotension, improved Acute decompensated diastolic congestive heart failure Pulmonary hypertension Preserved ejection fraction Tricuspid valve regurgitation Lung cancer SVT -Continue beta-belinda as heart rate and blood pressure permits. -Continue Lasix as blood pressure renal function permits. Maintain potassium above 4.0 and magnesium above 2.0, -ContinueMidodrine. Subjective 24 Hr Interval Summary Free Text/Dictation The patient iht no cahnge Exam/Review of Systems Vital Signs Vitals Vital Signs Date Time Temp Pulse Resp B/P Pulse Ox O2 Delivery O2 Flow Rate FiO2 12/08/16 17:00 122 26 96 35 12/08/16 16:18 98.6 107/61 12/06/16 07:36 Mechanical Ventilator Intake and Output 12/07/16 12/07/16 12/08/16 15:00 23:00 07:00 Intake Total 1020 ml 1270 ml Output Total 500 ml 700 ml Balance 520 ml 570 ml Results Result Diagram: 12/08/16 0515 12/08/16 0515 Results 24 hrs Laboratory Tests Test 12/08/16 05:15 White Blood Count 23.7 #H Red Blood Count 2.88 L Hemoglobin 7.9 L Hematocrit 25.2 L Mean Corpuscular Volume 87.5 Mean Corpuscular Hemoglobin 27.4 L Mean Corpuscular Hemoglobin Concent 31.3 L Red Cell Distribution Width 16.7 H Platelet Count 377 Mean Platelet Volume 9.6 Neutrophils % 83.7 H Lymphocytes % 8.2 L Monocytes % 5.7 Eosinophils % 1.4 Basophils % 0.3 Nucleated Red Blood Cells % 0.0 Neutrophils # 19.8 H Lymphocytes # 1.9 Monocytes # 1.4 H Eosinophils # 0.3 Basophils # 0.1 Nucleated Red Blood Cells # 0.0 Sodium Level 131 L Potassium Level 3.9 Chloride Level 96 L Carbon Dioxide Level 30 Anion Gap 9 Blood Urea Nitrogen 17 Creatinine 0.53 Glucose Level 106 Calcium Level 7.8 L Medications Medications Current Medications Ondansetron HCl (Zofran Inj) 4 mg Q6 PRN IV NAUSEA AND/OR VOMITING; Start 09/26 at 22:30 Collagenase (Santyl) 1 applic DAILY TOP Last administered on 12/08/16 09:55; Admin Dose 1 APPLIC; Start 09/27/16 at 09:00 Collagenase (Santyl) 1 applic PRN PRN TOP SOILED OR DISLODGED DRESSING; Start 09/27/16 at 05:00 Lansoprazole (Prevacid) 30 mg DAILY@06 GTB Last administered on 12/08/16 05:07 ; Admin Dose 30 MG; Start 09/28/16 at 06:00 Cromolyn Sodium (Nasalcrom) 1 spray QID NASAL Last administered on 12/08/16 13 :42; Admin Dose 1 SPRAY; Start 09/29/16 at 11:02 Phenol (Cepastat Lozenge) 1 lozenge Q2H PRN MT SORE THROAT Last administered on 11/02/16 01:02; Admin Dose 1 LOZENGE; Start 10/01/16 at 19:00 IV Flush (NS 10 ml) 10 ml PRN PRN IV IV PROTOCOL Last administered on 11/17/16 03:20; Admin Dose 10 ML; Start 10/02/16 at 19:00 Hydromorphone HCl (Dilaudid) 0.5 mg Q4H PRN IV PAIN Last administered on 22:31; Admin Dose 0.5 MG; Start 10/06/16 at 18:30 Potassium Chloride (Potassium Chloride Pwd/Soln) 20 meq DAILY GTB Last administered on 12/08/16 09:54; Admin Dose 20 MEQ; Start 10/30/16 at 12:00 Acetaminophen (Tylenol Liquid) 650 mg Q6H PRN PEG PAIN AND OR ELEVATED TEMP Last administered on 12/07/16 12:32; Admin Dose 650 MG; Start 11/16/16 at 20:04 Alprazolam (Xanax) 0.5 mg Q12H PRN PEG ANXIETY Last administered on 12/08/16 00:55; Admin Dose 0.5 MG; Start 11/16/16 at 20:30 Ascorbic Acid (Vitamin C) 500 mg BID PEG Last administered on 12/08/16 09:54; Admin Dose 500 MG; Start 11/16/16 at 21:00 Atorvastatin Calcium (Lipitor) 20 mg QHS PEG Last administered on 12/07/16 21: 27; Admin Dose 20 MG; Start 11/16/16 at 21:00 Diazepam (Valium) 10 mg DAILY PEG Last administered on 12/08/16 09:55; Admin Dose 10 MG; Start 11/17/16 at 09:00 Duloxetine HCl (Cymbalta) 20 mg DAILY PEG Last administered on 12/08/16 09:54 ; Admin Dose 20 MG; Start 11/17/16 at 09:00 Lactobacillus Acidophilus (Florajen3 Capsule) 1 each TID PEG Last administered on 12/08/16 13:38; Admin Dose 1 EACH; Start 11/16/16 at 21:00 Promethazine HCl/ Codeine (Phenergan/ Codeine) 10 ml BID PRN PEG COUGH Last administered on 11/30/16 09:36; Admin Dose 10 ML; Start 11/16/16 at 20:00 Zolpidem Tartrate (Ambien) 5 mg QHS PRN PEG INSOMNIA; Start 11/16/16 at 20:00 Docusate Sodium (Colace Liquid Cup) 100 mg Q12 PRN GTB CONSTIPATION; Start 11/16 at 20:00 Oxycodone HCl (Roxicodone) 10 mg Q4H PO Last administered on 12/08/16 14:06; Admin Dose 10 MG; Start 11/20/16 at 17:30 Midodrine (Proamatine) 2.5 mg TID@08,12,17 NGT Last administered on 12/08/16 12:32; Admin Dose 2.5 MG; Start 11/24/16 at 18:33 Furosemide (Lasix) 20 mg DAILY GTB Last administered on 12/08/16 09:53; Admin Dose 20 MG; Start 12/01/16 at 09:00 Metoprolol Tartrate 12.5 mg 12.5 mg BID PO Last administered on 12/08/16 13:42 ; Admin Dose 12.5 MG; Start 12/03/16 at 21:00 Vancomycin HCl (Vancocin) 100 ml @ 100 mls/hr Q12H IVPB Last administered on 05:06; Admin Dose 100 MLS/HR; Start 12/08/16 at 06:00 Miscellaneous Information (*Rx Drug Level Order Reminder*) VANCO TROUGH @ 0, 500 ON... ONCE ONCE XX ; Start 12/09/16 at 05:00; Stop 12/09/16 at 05:01 RALPH LUCAS MD Dec 08, 2016 17:49
[2016-12-08] MEDS: ATORVASTATIN 20 MG TAB PEG SCH (21:11)
--- NOTE | 2016-12-08 21:24 | CONS ---
Date/Time of Note Date/Time of Note DATE: 12/08/16 TIME: 21:21 Assessment/Plan Assessment/Plan Chief Complaint/Hosp Course SUBJECTIVE: Alert, looks comfortable, afebrile, nad, n/ n/v/d INDWELLINGS: Trach, PEG, George, PICC line. Micro: Bld cx 12/06 + Staph sp Abx: Vancomycin PHYSICAL EXAMINATION: GENERAL: Fragile cachectic elderly woman who is in no distress. HEENT: Head atraumatic, normocephalic. Sclerae anicteric. Buccal mucosa dry. NECK: Supple. Tracheostomy present. CHEST: Rise symmetrical. Breath sounds diminished to bases. HEART: S1, S2. ABDOMEN: Soft, bowel tones present. EXTREMITIES: With trace dependent edema. ASSESSMENT: 1. Staph bacteremia, poss 2 to infected PICC 2. Status post septic shock, urinary tract infection, and pneumonia. 3. Chronic respiratory failure. 4. Lung cancer. 5. History of Clostridium difficile colitis. 6. Unstageable sacral decubitus, status post debridement with wound VAC, completed 6 weeks antibiotics. 7. Cachexia. 7. Dysphagia, status post percutaneous endoscopic gastrostomy. PLAN: Clinically stable, Vanco restarted for bacteremia, consider PICC change, f/u repeat bld cx DW staff Problems: Consultation Date/Type/Reason Admit Date/Time Sep 26, 2016 at 20:07 Type of Consultation: ID Referring Provider: DRE LOBATO MD Exam/Review of Systems Vital Signs Vitals Vital Signs Date Time Temp Pulse Resp B/P Pulse Ox O2 Delivery O2 Flow Rate FiO2 12/08/16 20:56 126 12/08/16 20:19 98.6 24 110/59 97 12/08/16 19:51 35 12/06/16 07:36 Mechanical Ventilator Intake and Output 12/07/16 12/07/16 12/08/16 15:00 23:00 07:00 Intake Total 1020 ml 1270 ml Output Total 500 ml 700 ml Balance 520 ml 570 ml Results Result Diagram: 12/08/16 0515 12/08/16 0515 Results 24 hrs Laboratory Tests Test 12/08/16 05:15 White Blood Count 23.7 #H Red Blood Count 2.88 L Hemoglobin 7.9 L Hematocrit 25.2 L Mean Corpuscular Volume 87.5 Mean Corpuscular Hemoglobin 27.4 L Mean Corpuscular Hemoglobin Concent 31.3 L Red Cell Distribution Width 16.7 H Platelet Count 377 Mean Platelet Volume 9.6 Neutrophils % 83.7 H Lymphocytes % 8.2 L Monocytes % 5.7 Eosinophils % 1.4 Basophils % 0.3 Nucleated Red Blood Cells % 0.0 Neutrophils # 19.8 H Lymphocytes # 1.9 Monocytes # 1.4 H Eosinophils # 0.3 Basophils # 0.1 Nucleated Red Blood Cells # 0.0 Sodium Level 131 L Potassium Level 3.9 Chloride Level 96 L Carbon Dioxide Level 30 Anion Gap 9 Blood Urea Nitrogen 17 Creatinine 0.53 Glucose Level 106 Calcium Level 7.8 L Medications Medications Current Medications Ondansetron HCl (Zofran Inj) 4 mg Q6 PRN IV NAUSEA AND/OR VOMITING; Start 09/26 at 22:30 Collagenase (Santyl) 1 applic DAILY TOP Last administered on 12/08/16 09:55; Admin Dose 1 APPLIC; Start 09/27/16 at 09:00 Collagenase (Santyl) 1 applic PRN PRN TOP SOILED OR DISLODGED DRESSING; Start 09/27/16 at 05:00 Lansoprazole (Prevacid) 30 mg DAILY@06 GTB Last administered on 12/08/16 05:07 ; Admin Dose 30 MG; Start 09/28/16 at 06:00 Cromolyn Sodium (Nasalcrom) 1 spray QID NASAL Last administered on 12/08/16 21 :11; Admin Dose 1 SPRAY; Start 09/29/16 at 11:02 Phenol (Cepastat Lozenge) 1 lozenge Q2H PRN MT SORE THROAT Last administered on 11/02/16 01:02; Admin Dose 1 LOZENGE; Start 10/01/16 at 19:00 IV Flush (NS 10 ml) 10 ml PRN PRN IV IV PROTOCOL Last administered on 11/17/16 03:20; Admin Dose 10 ML; Start 10/02/16 at 19:00 Hydromorphone HCl (Dilaudid) 0.5 mg Q4H PRN IV PAIN Last administered on 22:31; Admin Dose 0.5 MG; Start 10/06/16 at 18:30 Potassium Chloride (Potassium Chloride Pwd/Soln) 20 meq DAILY GTB Last administered on 12/08/16 09:54; Admin Dose 20 MEQ; Start 10/30/16 at 12:00 Acetaminophen (Tylenol Liquid) 650 mg Q6H PRN PEG PAIN AND OR ELEVATED TEMP Last administered on 12/07/16 12:32; Admin Dose 650 MG; Start 11/16/16 at 20:04 Alprazolam (Xanax) 0.5 mg Q12H PRN PEG ANXIETY Last administered on 12/08/16 00:55; Admin Dose 0.5 MG; Start 11/16/16 at 20:30 Ascorbic Acid (Vitamin C) 500 mg BID PEG Last administered on 12/08/16 21:10; Admin Dose 500 MG; Start 11/16/16 at 21:00 Atorvastatin Calcium (Lipitor) 20 mg QHS PEG Last administered on 12/08/16 21: 11; Admin Dose 20 MG; Start 11/16/16 at 21:00 Diazepam (Valium) 10 mg DAILY PEG Last administered on 12/08/16 09:55; Admin Dose 10 MG; Start 11/17/16 at 09:00 Duloxetine HCl (Cymbalta) 20 mg DAILY PEG Last administered on 12/08/16 09:54 ; Admin Dose 20 MG; Start 11/17/16 at 09:00 Lactobacillus Acidophilus (Florajen3 Capsule) 1 each TID PEG Last administered on 12/08/16 21:10; Admin Dose 1 EACH; Start 11/16/16 at 21:00 Promethazine HCl/ Codeine (Phenergan/ Codeine) 10 ml BID PRN PEG COUGH Last administered on 11/30/16 09:36; Admin Dose 10 ML; Start 11/16/16 at 20:00 Zolpidem Tartrate (Ambien) 5 mg QHS PRN PEG INSOMNIA; Start 11/16/16 at 20:00 Docusate Sodium (Colace Liquid Cup) 100 mg Q12 PRN GTB CONSTIPATION; Start 11/16 at 20:00 Oxycodone HCl (Roxicodone) 10 mg Q4H PO Last administered on 12/08/16 21:10; Admin Dose 10 MG; Start 11/20/16 at 17:30 Midodrine (Proamatine) 2.5 mg TID@08,12,17 NGT Last administered on 12/08/16 17:48; Admin Dose 2.5 MG; Start 11/24/16 at 18:33 Furosemide (Lasix) 20 mg DAILY GTB Last administered on 12/08/16 09:53; Admin Dose 20 MG; Start 12/01/16 at 09:00 Metoprolol Tartrate 12.5 mg 12.5 mg BID PO Last administered on 12/08/16 21:10 ; Admin Dose 12.5 MG; Start 12/03/16 at 21:00 Vancomycin HCl (Vancocin) 100 ml @ 100 mls/hr Q12H IVPB Last administered on 21:10; Admin Dose 100 MLS/HR; Start 12/08/16 at 06:00 Miscellaneous Information (*Rx Drug Level Order Reminder*) VANCO TROUGH @ 0, 500 ON... ONCE ONCE XX ; Start 12/09/16 at 05:00; Stop 12/09/16 at 05:01 RUBIN MAYEN NP Dec 08, 2016 21:24
[2016-12-09] VITALS (23 sets, daily range): BP systolic 74–94; BP diastolic 51–63; PULSE 77–111; RESP 17–22
--- NOTE | 2016-12-09 00:35 | CONS ---
Date/Time of Note Date/Time of Note DATE: 12/08/16 TIME: 16:35 vk le Assessment/Plan Assessment/Plan Chief Complaint/Hosp Course Left lung squamous carcinoma. The patient is not a candidate for chemotherapy. Anemia of chronic disease. post 11 u prbc monitor blood count closely transfuse as needed to keep HB above 8 Acute respiratory insufficiency requiring BiPAP. trach -per daughter's wishes Acute shock, septic versus hypovolemic. tachycardia with episode of SVT. Chronic obstructive pulmonary disease. Dysphagia with G-tube. Continue current G-tube feeding. Hypothyroidism. Continue Synthroid. Problems: Consultation Date/Type/Reason Admit Date/Time Sep 26, 2016 at 20:07 Initial Consult Date 10/19/16 Type of Consultation: hemeon Referring Provider: DRE LOBATO MD 24 HR Interval Summary Free Text/Dictation ALL NOTED Exam/Review of Systems Vital Signs Vitals Vital Signs Date Time Temp Pulse Resp B/P Pulse Ox O2 Delivery O2 Flow Rate FiO2 12/09/16 00:00 99.0 113 19 90/53 97 12/08/16 23:56 35 12/06/16 07:36 Mechanical Ventilator Intake and Output 12/08/16 12/08/16 12/09/16 15:00 23:00 07:00 Intake Total 920 ml Output Total 650 ml Balance 270 ml Exam Constitutional: alert Neck: other (trach intact) Respiratory: clear to auscultation, normal air movement Cardiovascular: nl pulses Gastrointestinal: soft Musculoskeletal: muscle weakness Extremities: normal pulses Neurological: other Results Result Diagram: 12/08/16 0515 12/08/16 0515 Results 24 hrs Laboratory Tests Test 12/08/16 05:15 White Blood Count 23.7 #H Red Blood Count 2.88 L Hemoglobin 7.9 L Hematocrit 25.2 L Mean Corpuscular Volume 87.5 Mean Corpuscular Hemoglobin 27.4 L Mean Corpuscular Hemoglobin Concent 31.3 L Red Cell Distribution Width 16.7 H Platelet Count 377 Mean Platelet Volume 9.6 Neutrophils % 83.7 H Lymphocytes % 8.2 L Monocytes % 5.7 Eosinophils % 1.4 Basophils % 0.3 Nucleated Red Blood Cells % 0.0 Neutrophils # 19.8 H Lymphocytes # 1.9 Monocytes # 1.4 H Eosinophils # 0.3 Basophils # 0.1 Nucleated Red Blood Cells # 0.0 Sodium Level 131 L Potassium Level 3.9 Chloride Level 96 L Carbon Dioxide Level 30 Anion Gap 9 Blood Urea Nitrogen 17 Creatinine 0.53 Glucose Level 106 Calcium Level 7.8 L Medications Medications Current Medications Ondansetron HCl (Zofran Inj) 4 mg Q6 PRN IV NAUSEA AND/OR VOMITING; Start 09/26 at 22:30 Collagenase (Santyl) 1 applic DAILY TOP Last administered on 12/08/16 09:55; Admin Dose 1 APPLIC; Start 09/27/16 at 09:00 Collagenase (Santyl) 1 applic PRN PRN TOP SOILED OR DISLODGED DRESSING; Start 09/27/16 at 05:00 Lansoprazole (Prevacid) 30 mg DAILY@06 GTB Last administered on 12/08/16 05:07 ; Admin Dose 30 MG; Start 09/28/16 at 06:00 Cromolyn Sodium (Nasalcrom) 1 spray QID NASAL Last administered on 12/08/16 21 :11; Admin Dose 1 SPRAY; Start 09/29/16 at 11:02 Phenol (Cepastat Lozenge) 1 lozenge Q2H PRN MT SORE THROAT Last administered on 11/02/16 01:02; Admin Dose 1 LOZENGE; Start 10/01/16 at 19:00 IV Flush (NS 10 ml) 10 ml PRN PRN IV IV PROTOCOL Last administered on 11/17/16 03:20; Admin Dose 10 ML; Start 10/02/16 at 19:00 Hydromorphone HCl (Dilaudid) 0.5 mg Q4H PRN IV PAIN Last administered on 22:31; Admin Dose 0.5 MG; Start 10/06/16 at 18:30 Potassium Chloride (Potassium Chloride Pwd/Soln) 20 meq DAILY GTB Last administered on 12/08/16 09:54; Admin Dose 20 MEQ; Start 10/30/16 at 12:00 Acetaminophen (Tylenol Liquid) 650 mg Q6H PRN PEG PAIN AND OR ELEVATED TEMP Last administered on 12/07/16 12:32; Admin Dose 650 MG; Start 11/16/16 at 20:04 Alprazolam (Xanax) 0.5 mg Q12H PRN PEG ANXIETY Last administered on 12/08/16 00:55; Admin Dose 0.5 MG; Start 11/16/16 at 20:30 Ascorbic Acid (Vitamin C) 500 mg BID PEG Last administered on 12/08/16 21:10; Admin Dose 500 MG; Start 11/16/16 at 21:00 Atorvastatin Calcium (Lipitor) 20 mg QHS PEG Last administered on 12/08/16 21: 11; Admin Dose 20 MG; Start 11/16/16 at 21:00 Diazepam (Valium) 10 mg DAILY PEG Last administered on 12/08/16 09:55; Admin Dose 10 MG; Start 11/17/16 at 09:00 Duloxetine HCl (Cymbalta) 20 mg DAILY PEG Last administered on 12/08/16 09:54 ; Admin Dose 20 MG; Start 11/17/16 at 09:00 Lactobacillus Acidophilus (Florajen3 Capsule) 1 each TID PEG Last administered on 12/08/16 21:10; Admin Dose 1 EACH; Start 11/16/16 at 21:00 Promethazine HCl/ Codeine (Phenergan/ Codeine) 10 ml BID PRN PEG COUGH Last administered on 11/30/16 09:36; Admin Dose 10 ML; Start 11/16/16 at 20:00 Zolpidem Tartrate (Ambien) 5 mg QHS PRN PEG INSOMNIA; Start 11/16/16 at 20:00 Docusate Sodium (Colace Liquid Cup) 100 mg Q12 PRN GTB CONSTIPATION; Start 11/16 at 20:00 Oxycodone HCl (Roxicodone) 10 mg Q4H PO Last administered on 12/08/16 21:10; Admin Dose 10 MG; Start 11/20/16 at 17:30 Midodrine (Proamatine) 2.5 mg TID@08,12,17 NGT Last administered on 12/08/16 17:48; Admin Dose 2.5 MG; Start 11/24/16 at 18:33 Furosemide (Lasix) 20 mg DAILY GTB Last administered on 12/08/16 09:53; Admin Dose 20 MG; Start 12/01/16 at 09:00 Metoprolol Tartrate 12.5 mg 12.5 mg BID PO Last administered on 12/08/16 21:10 ; Admin Dose 12.5 MG; Start 12/03/16 at 21:00 Vancomycin HCl (Vancocin) 100 ml @ 100 mls/hr Q12H IVPB Last administered on t 21:10; Admin Dose 100 MLS/HR; Start 12/08/16 at 06:00 Miscellaneous Information (*Rx Drug Level Order Reminder*) VANCO TROUGH @ 0, 500 ON... ONCE ONCE XX ; Start 12/09/16 at 05:00; Stop 12/09/16 at 05:01 DYLLAN CARRION MD Dec 09, 2016 00:35
[2016-12-09] MEDS: oxyCODONE 5 MG TAB PO SCH ×6 (01:48→21:44)
[2016-12-09 05:35] LABS: ADD SCAN DIFF NO
[2016-12-09 05:38] LABS: ABNORMAL IP MESSAGE 1; HEMATOCRIT 21.2 % (37.0-47.0); MEAN CORPUSCULAR HEMOGLOBIN 27.1 pg (29.0-33.0); MEAN CORPUSCULAR HGB CONC 30.7 g/dl (32.0-37.0); MEAN CORPUSCULAR VOLUME 88.3 fl (82.0-101.0)
[2016-12-09 05:57] LABS: MEAN PLATELET VOLUME 9.6 fl (7.4-10.4); PLATELET COUNT 322 10^3/UL (140-415); RED CELL DISTRIBUTION WIDTH 16.5 % (11.5-14.5); WHITE BLOOD COUNT 17.4 10^3/ul (4.8-10.8)
[2016-12-09 06:07] LABS: CALCIUM 7.5 mg/dl (8.4-10.2); CREATININE 0.55 mg/dl (0.44-1.00)
[2016-12-09] MEDS: VANCOMYCIN 500MG/NS (PMX) 100 ML IVPB SCH ×2 (06:32→18:38)
[2016-12-09] MEDS: LEVOTHYROXINE 125 MCG TAB PEG SCH (06:32)
[2016-12-09] MEDS: LANSOPRAZOLE 30 MG CAP GTB SCH (06:33)
[2016-12-09 07:05] LABS: HEMOGLOBIN 6.5 g/dl (12.0-16.0)
[2016-12-09] MEDS: DULOXETINE 20 MG CAP DR PEG SCH (10:05)
[2016-12-09] MEDS: POTASSIUM CHLORIDE 20 MEQ POWDER FOR ORAL SOLN GTB SCH (10:05)
[2016-12-09] MEDS: L ACIDOPHIL/B LACTIS/B LONGUM CAPSULE PEG SCH ×3 (10:06→21:43)
[2016-12-09] MEDS: DIAZEPAM 5 MG TAB PEG SCH (10:06)
[2016-12-09] MEDS: ASCORBIC ACID 500 MG TAB PEG SCH ×2 (10:06→21:43)
[2016-12-09] MEDS: FUROSEMIDE 20 MG TAB GTB SCH (10:08)
[2016-12-09] MEDS: COLLAGENASE 30 GM TUBE TOP SCH (10:09)
[2016-12-09] MEDS: METOPROLOL 25 MG TAB PO SCH ×2 (10:09→21:00)
[2016-12-09] MEDS: CROMOLYN 4% 26ML NAS INH NASAL SCH ×4 (10:19→21:43)
[2016-12-09] MEDS: MIDODRINE 2.5 MG TAB NGT SCH ×3 (10:20→18:37)
--- NOTE | 2016-12-09 11:19 | PN ---
DATE: 12/09/2016 PULMONARY FOLLOWUP SUBJECTIVE: Chart reviewed. Events noted. The patient remains on ventilator on 35% FIO2, saturati ng 96%. PHYSICAL EXAMINATION: VITAL SIGNS: Blood pressure 92/56, pulse 121, respirations 18, temperature 99.5. HEENT: Pupils are equal and reactive to light. NECK: Supple, no JVD noted, no cervical adenopathy noted, no carotid bruits heard. Tracheostomy in place. LUNGS: Few scattered rhonchi. CARDIOVASCULAR: S1, S2 normal. ABDOMEN: Soft, nontender. No organomegaly or masses noted. G-tube in place. EXTREMITIES: No clubbing or cyanosis noted. Trace edema present. NEUROLOGIC: The patient encephalopathic. LABORATORY DATA: WBC 17.4, hemoglobin 6.5, hematocrit 21.2, platelets 322. Sodium 130, potassium 4 .0, chloride 97, CO2 of 30, BUN 19, creatinine 0.55, glucose 106. IMPRESSION: 1. Ventilator-dependent respiratory failure, hypoxemic. 2. Status post cardiac arrest. 3. Anoxic encephalopathy. 4. Advanced chronic obstructive pulmonary disease. 5. History of lung cancer. 6. Severe anemia requiring frequent blood transfusions. 7. Encephalopathy. PLAN: 1. Continue ventilator support. 2. Continue antibiotics per ID recommendations. 3. Transfuse packed RBC to keep hemoglobin above 8. 4. ID recommendations noted. 5. Followup labs and x-ray. Dictated By: RUBEN NIELSEN MD, MA/SANDER Conf#: [id number] DID#: [id number]
[2016-12-09 11:20] LABS: EOSINOPHILS # 0.2 10^3/ul (0.0-0.5); LYMPHOCYTES # 1.4 10^3/ul (0.8-2.9); MONOCYTE # 0.7 10^3/ul (0.3-0.9); NEUTROPHIL # 14.6 10^3/ul (1.6-7.5)
--- NOTE | 2016-12-09 11:53 | PN ---
Date/Time of Note Date/Time of Note DATE: 12/09/16 TIME: 11:52 Assessment/Plan VTE Prophylaxis VTE Prophylaxis Intervention: SCD's Lines/Catheters [facility] Type ([facility] PICC Line Central line still needed: No Urinary Cath still in place: Yes Reason Cath still needed: urinary retention Assessment/Plan Chief Complaint/Hosp Course Patient is a 66-year-old female with anemia and cancer presents for anemia and leukocytosis. The patient was sent by Dr. Dozier from [facility] for admission. The patient said that she was "not feeling well all weekend". She was brought in by ambulance. She said that she had a fever but did not check her temperature. She has had cough and urinary symptoms as well as sore throat. The patient had peristent hypotension but no sycnope and remains stabe with no chest pain and no overt CHF Problems: Assessment/Plan Sepsis Respiratory failure Cardiopulmonary Arrest Hypotension, improved Acute decompensated diastolic congestive heart failure Pulmonary hypertension Preserved ejection fraction Tricuspid valve regurgitation Lung cancer SVT -Continue beta-belinda as heart rate and blood pressure permits. -Continue Lasix as blood pressure renal function permits. Maintain potassium above 4.0 and magnesium above 2.0, -ContinueMidodrine. Subjective 24 Hr Interval Summary Free Text/Dictation The pateitn with no change Exam/Review of Systems Vital Signs Vitals Vital Signs Date Time Temp Pulse Resp B/P Pulse Ox O2 Delivery O2 Flow Rate FiO2 12/09/16 11:45 99.6 87 18 74/51 96 12/09/16 11:11 35 12/06/16 07:36 Mechanical Ventilator Intake and Output 12/08/16 12/08/16 12/09/16 15:00 23:00 07:00 Intake Total 1020 ml 1020 ml Output Total 650 ml 450 ml Balance 370 ml 570 ml Results Result Diagram: 12/09/1652112/09/16 05 Results 24 hrs Laboratory Tests Test 12/09/16 05:22 White Blood Count 17.4 #H Red Blood Count 2.40 L Hemoglobin 6.5 *L Hematocrit 21.2 L Mean Corpuscular Volume 88.3 Mean Corpuscular Hemoglobin 27.1 L Mean Corpuscular Hemoglobin Concent 30.7 L Red Cell Distribution Width 16.5 H Platelet Count 322 Mean Platelet Volume 9.6 Neutrophils % 84.0 H Band Neutrophils % 3.0 Lymphocytes % 8.0 L Monocytes % 4.0 Eosinophils % 1.0 Neutrophils # 14.6 H Lymphocytes # 1.4 Monocytes # 0.7 Eosinophils # 0.2 Sodium Level 130 L Potassium Level 4.0 Chloride Level 97 Carbon Dioxide Level 30 Anion Gap 7 L Blood Urea Nitrogen 19 Creatinine 0.55 Glucose Level 106 Calcium Level 7.5 L Vancomycin Level Trough 12.4 Medications Medications Current Medications Ondansetron HCl (Zofran Inj) 4 mg Q6 PRN IV NAUSEA AND/OR VOMITING; Start 09/26 at 22:30 Collagenase (Santyl) 1 applic DAILY TOP Last administered on 12/09/16 10:09; Admin Dose 1 APPLIC; Start 09/27/16 at 09:00 Collagenase (Santyl) 1 applic PRN PRN TOP SOILED OR DISLODGED DRESSING; Start 09/27/16 at 05:00 Lansoprazole (Prevacid) 30 mg DAILY@06 GTB Last administered on 12/09/16 06:33 ; Admin Dose 30 MG; Start 09/28/16 at 06:00 Cromolyn Sodium (Nasalcrom) 1 spray QID NASAL Last administered on 12/09/16 10 :19; Admin Dose 1 SPRAY; Start 09/29/16 at 11:02 Phenol (Cepastat Lozenge) 1 lozenge Q2H PRN MT SORE THROAT Last administered on 11/02/16 01:02; Admin Dose 1 LOZENGE; Start 10/01/16 at 19:00 IV Flush (NS 10 ml) 10 ml PRN PRN IV IV PROTOCOL Last administered on 11/17/16 03:20; Admin Dose 10 ML; Start 10/02/16 at 19:00 Hydromorphone HCl (Dilaudid) 0.5 mg Q4H PRN IV PAIN Last administered on 22:31; Admin Dose 0.5 MG; Start 10/06/16 at 18:30 Potassium Chloride (Potassium Chloride Pwd/Soln) 20 meq DAILY GTB Last administered on 12/09/16 10:05; Admin Dose 20 MEQ; Start 10/30/16 at 12:00 Acetaminophen (Tylenol Liquid) 650 mg Q6H PRN PEG PAIN AND OR ELEVATED TEMP Last administered on 12/07/16 12:32; Admin Dose 650 MG; Start 11/16/16 at 20:04 Alprazolam (Xanax) 0.5 mg Q12H PRN PEG ANXIETY Last administered on 12/08/16 00:55; Admin Dose 0.5 MG; Start 11/16/16 at 20:30 Ascorbic Acid (Vitamin C) 500 mg BID PEG Last administered on 12/09/16 10:06; Admin Dose 500 MG; Start 11/16/16 at 21:00 Atorvastatin Calcium (Lipitor) 20 mg QHS PEG Last administered on 12/08/16 21: 11; Admin Dose 20 MG; Start 11/16/16 at 21:00 Diazepam (Valium) 10 mg DAILY PEG Last administered on 12/09/16 10:06; Admin Dose 10 MG; Start 11/17/16 at 09:00 Duloxetine HCl (Cymbalta) 20 mg DAILY PEG Last administered on 12/09/16 10:05 ; Admin Dose 20 MG; Start 11/17/16 at 09:00 Lactobacillus Acidophilus (Florajen3 Capsule) 1 each TID PEG Last administered on 12/09/16 10:06; Admin Dose 1 EACH; Start 11/16/16 at 21:00 Promethazine HCl/ Codeine (Phenergan/ Codeine) 10 ml BID PRN PEG COUGH Last administered on 11/30/16 09:36; Admin Dose 10 ML; Start 11/16/16 at 20:00 Zolpidem Tartrate (Ambien) 5 mg QHS PRN PEG INSOMNIA; Start 11/16/16 at 20:00 Docusate Sodium (Colace Liquid Cup) 100 mg Q12 PRN GTB CONSTIPATION; Start 11/16 at 20:00 Oxycodone HCl (Roxicodone) 10 mg Q4H PO Last administered on 12/09/16 10:20; Admin Dose 10 MG; Start 11/20/16 at 17:30 Midodrine (Proamatine) 2.5 mg TID@08,12,17 NGT Last administered on 12/09/16 10:20; Admin Dose 2.5 MG; Start 11/24/16 at 18:33 Furosemide (Lasix) 20 mg DAILY GTB Last administered on 12/09/16 10:08; Admin Dose 20 MG; Start 12/01/16 at 09:00 Metoprolol Tartrate 12.5 mg 12.5 mg BID PO Last administered on 12/09/16 10:09 ; Admin Dose 12.5 MG; Start 12/03/16 at 21:00 Vancomycin HCl (Vancocin) 100 ml @ 100 mls/hr Q12H IVPB Last administered on 06:32; Admin Dose 100 MLS/HR; Start 12/08/16 at 06:00 RALPH LUCAS MD Dec 09, 2016 11:53
--- NOTE | 2016-12-09 12:14 | PN ---
Date/Time of Note Date/Time of Note DATE: 12/09/16 TIME: 12:13 Assessment/Plan VTE Prophylaxis VTE Prophylaxis Intervention: other Lines/Catheters [facility] Type [facility] P[facility] Line Central line still needed: Yes Urinary Cath still in place: Yes Reason Cath still needed: skin wounds contaminated by urine Assessment/Plan Chief Complaint/Hosp Course - Recurrent sepsis with Staphylococcus bacteremia, continue vancomycin. Dr. Coleman is following an infection disease consultation. - Status post tracheostomy by Dr. White, ENT on 11/28. - Status post cardiopulmonary arrest. - Acute respiratory failure. Continue breathing treatment, oxygen supply supplementation and bronchodilators. Dr. Lopez is following in pulmonology consultation. - Left lung squamous carcinoma. The patient is not a candidate for chemotherapy. Dr. Calvo is following in oncology consultation. - Chronic obstructive pulmonary disease. Patient with long history of tobacco use. - Anemia of chronic disease. Continue to monitor hemoglobin and hematocrit. - Dysphagia with G-tube. Continue G-tube feeding, monitor residual. Continue aspiration precautions. - Hypothyroidism. Continue Synthroid. - Chronic pain. - Failure to thrive. Problems: Subjective 24 Hr Interval Summary Free Text/Dictation Eyes open, trach in place Exam/Review of Systems Vital Signs Vitals Vital Signs Date Time Temp Pulse Resp B/P Pulse Ox O2 Delivery O2 Flow Rate FiO2 12/09/16 11:45 99.6 87 18 74/51 96 12/09/16 11:11 35 12/06/16 07:36 Mechanical Ventilator Intake and Output 12/08/16 12/08/16 12/09/16 15:00 23:00 07:00 Intake Total 1020 ml 1020 ml Output Total 650 ml 450 ml Balance 370 ml 570 ml Exam Constitutional: well developed Head: atraumatic, normocephalic Neck: supple Respiratory: diminished breath sounds Cardiovascular: regular rate and rhythm Gastrointestinal: non-tender, soft Extremities: normal pulses Results Result Diagram: 12/09/1622 12/09/16 0522 Results 24 hrs Laboratory Tests Test 12/09/16 05:22 White Blood Count 17.4 #H Red Blood Count 2.40 L Hemoglobin 6.5 *L Hematocrit 21.2 L Mean Corpuscular Volume 88.3 Mean Corpuscular Hemoglobin 27.1 L Mean Corpuscular Hemoglobin Concent 30.7 L Red Cell Distribution Width 16.5 H Platelet Count 322 Mean Platelet Volume 9.6 Neutrophils % 84.0 H Band Neutrophils % 3.0 Lymphocytes % 8.0 L Monocytes % 4.0 Eosinophils % 1.0 Neutrophils # 14.6 H Lymphocytes # 1.4 Monocytes # 0.7 Eosinophils # 0.2 Sodium Level 130 L Potassium Level 4.0 Chloride Level 97 Carbon Dioxide Level 30 Anion Gap 7 L Blood Urea Nitrogen 19 Creatinine 0.55 Glucose Level 106 Calcium Level 7.5 L Vancomycin Level Trough 12.4 Medications Medications Current Medications Ondansetron HCl (Zofran Inj) 4 mg Q6 PRN IV NAUSEA AND/OR VOMITING; Start 09/26 at 22:30 Collagenase (Santyl) 1 applic DAILY TOP Last administered on 12/09/16 10:09; Admin Dose 1 APPLIC; Start 09/27/16 at 09:00 Collagenase (Santyl) 1 applic PRN PRN TOP SOILED OR DISLODGED DRESSING; Start 09/27/16 at 05:00 Lansoprazole (Prevacid) 30 mg DAILY@06 GTB Last administered on 12/09/16 06:33 ; Admin Dose 30 MG; Start 09/28/16 at 06:00 Cromolyn Sodium (Nasalcrom) 1 spray QID NASAL Last administered on 12/09/16 10 :19; Admin Dose 1 SPRAY; Start 09/29/16 at 11:02 Phenol (Cepastat Lozenge) 1 lozenge Q2H PRN MT SORE THROAT Last administered on 11/02/16 01:02; Admin Dose 1 LOZENGE; Start 10/01/16 at 19:00 IV Flush (NS 10 ml) 10 ml PRN PRN IV IV PROTOCOL Last administered on 11/17/16 03:20; Admin Dose 10 ML; Start 10/02/16 at 19:00 Hydromorphone HCl (Dilaudid) 0.5 mg Q4H PRN IV PAIN Last administered on 22:31; Admin Dose 0.5 MG; Start 10/06/16 at 18:30 Potassium Chloride (Potassium Chloride Pwd/Soln) 20 meq DAILY GTB Last administered on 12/09/16 10:05; Admin Dose 20 MEQ; Start 10/30/16 at 12:00 Acetaminophen (Tylenol Liquid) 650 mg Q6H PRN PEG PAIN AND OR ELEVATED TEMP Last administered on 12/07/16 12:32; Admin Dose 650 MG; Start 11/16/16 at 20:04 Alprazolam (Xanax) 0.5 mg Q12H PRN PEG ANXIETY Last administered on 12/08/16 00:55; Admin Dose 0.5 MG; Start 11/16/16 at 20:30 Ascorbic Acid (Vitamin C) 500 mg BID PEG Last administered on 12/09/16 10:06; Admin Dose 500 MG; Start 11/16/16 at 21:00 Atorvastatin Calcium (Lipitor) 20 mg QHS PEG Last administered on 12/08/16 21: 11; Admin Dose 20 MG; Start 11/16/16 at 21:00 Diazepam (Valium) 10 mg DAILY PEG Last administered on 12/09/16 10:06; Admin Dose 10 MG; Start 11/17/16 at 09:00 Duloxetine HCl (Cymbalta) 20 mg DAILY PEG Last administered on 12/09/16 10:05 ; Admin Dose 20 MG; Start 11/17/16 at 09:00 Lactobacillus Acidophilus (Florajen3 Capsule) 1 each TID PEG Last administered on 12/09/16 10:06; Admin Dose 1 EACH; Start 11/16/16 at 21:00 Promethazine HCl/ Codeine (Phenergan/ Codeine) 10 ml BID PRN PEG COUGH Last administered on 11/30/16 09:36; Admin Dose 10 ML; Start 11/16/16 at 20:00 Zolpidem Tartrate (Ambien) 5 mg QHS PRN PEG INSOMNIA; Start 11/16/16 at 20:00 Docusate Sodium (Colace Liquid Cup) 100 mg Q12 PRN GTB CONSTIPATION; Start 11/16 at 20:00 Oxycodone HCl (Roxicodone) 10 mg Q4H PO Last administered on 12/09/16 10:20; Admin Dose 10 MG; Start 11/20/16 at 17:30 Midodrine (Proamatine) 2.5 mg TID@08,12,17 NGT Last administered on 12/09/16 10:20; Admin Dose 2.5 MG; Start 11/24/16 at 18:33 Furosemide (Lasix) 20 mg DAILY GTB Last administered on 12/09/16 10:08; Admin Dose 20 MG; Start 12/01/16 at 09:00 Metoprolol Tartrate 12.5 mg 12.5 mg BID PO Last administered on 12/09/16 10:09 ; Admin Dose 12.5 MG; Start 12/03/16 at 21:00 Vancomycin HCl (Vancocin) 100 ml @ 100 mls/hr Q12H IVPB Last administered on 06:32; Admin Dose 100 MLS/HR; Start 12/08/16 at 06:00 MICHAEL HOROWITZ Dec 09, 2016 12:14
--- NOTE | 2016-12-09 12:43 | CONS ---
Date/Time of Note Date/Time of Note DATE: 12/09/16 TIME: 12:42 Assessment/Plan Assessment/Plan Additional Assessment/Plan 1. acute on chronic resp failure intubated on ventilator- not able to wean off s/p Tracheostomy 2. PEA s/p resuscitation 3. Hyponatremia multifactorial 4. Pneumonia. 3. Lung cancer. 4. History of Clostridium difficile colitis and recurrent urinary tract infection. 5. Unstageable sacral wound, status post debridement with wound VAC application. PLAN: conitnue IV abx, ID following, S/p Tracheostomy making good urine Na 130, Cr normal will follow up Consultation Date/Type/Reason Admit Date/Time Sep 26, 2016 at 20:07 Type of Consultation: NEPHROLOGY Referring Provider: DRE LOBATO MD 24 HR Interval Summary Free Text/Dictation afebirle, BP stable Na 130 Exam/Review of Systems Vital Signs Vitals Vital Signs Date Time Temp Pulse Resp B/P Pulse Ox O2 Delivery O2 Flow Rate FiO2 12/09/16 12:24 108 12/09/16 11:45 99.6 18 74/51 96 12/09/16 11:11 35 12/06/16 07:36 Mechanical Ventilator Intake and Output 12/08/16 12/08/16 12/09/16 15:00 23:00 07:00 Intake Total 1020 ml 1020 ml Output Total 650 ml 450 ml Balance 370 ml 570 ml Results Result Diagram: 12/09/16 0522 12/09/16 0522 Results 24 hrs Laboratory Tests Test 12/09/16 05:22 White Blood Count 17.4 #H Red Blood Count 2.40 L Hemoglobin 6.5 *L Hematocrit 21.2 L Mean Corpuscular Volume 88.3 Mean Corpuscular Hemoglobin 27.1 L Mean Corpuscular Hemoglobin Concent 30.7 L Red Cell Distribution Width 16.5 H Platelet Count 322 Mean Platelet Volume 9.6 Neutrophils % 84.0 H Band Neutrophils % 3.0 Lymphocytes % 8.0 L Monocytes % 4.0 Eosinophils % 1.0 Neutrophils # 14.6 H Lymphocytes # 1.4 Monocytes # 0.7 Eosinophils # 0.2 Sodium Level 130 L Potassium Level 4.0 Chloride Level 97 Carbon Dioxide Level 30 Anion Gap 7 L Blood Urea Nitrogen 19 Creatinine 0.55 Glucose Level 106 Calcium Level 7.5 L Vancomycin Level Trough 12.4 Medications Medications Current Medications Ondansetron HCl (Zofran Inj) 4 mg Q6 PRN IV NAUSEA AND/OR VOMITING; Start 09/26 at 22:30 Collagenase (Santyl) 1 applic DAILY TOP Last administered on 12/09/16 10:09; Admin Dose 1 APPLIC; Start 09/27/16 at 09:00 Collagenase (Santyl) 1 applic PRN PRN TOP SOILED OR DISLODGED DRESSING; Start 09/27/16 at 05:00 Lansoprazole (Prevacid) 30 mg DAILY@06 GTB Last administered on 12/09/16 06:33 ; Admin Dose 30 MG; Start 09/28/16 at 06:00 Cromolyn Sodium (Nasalcrom) 1 spray QID NASAL Last administered on 12/09/16 10 :19; Admin Dose 1 SPRAY; Start 09/29/16 at 11:02 Phenol (Cepastat Lozenge) 1 lozenge Q2H PRN MT SORE THROAT Last administered on 11/02/16 01:02; Admin Dose 1 LOZENGE; Start 10/01/16 at 19:00 IV Flush (NS 10 ml) 10 ml PRN PRN IV IV PROTOCOL Last administered on 11/17/16 03:20; Admin Dose 10 ML; Start 10/02/16 at 19:00 Hydromorphone HCl (Dilaudid) 0.5 mg Q4H PRN IV PAIN Last administered on 22:31; Admin Dose 0.5 MG; Start 10/06/16 at 18:30 Potassium Chloride (Potassium Chloride Pwd/Soln) 20 meq DAILY GTB Last administered on 12/09/16 10:05; Admin Dose 20 MEQ; Start 10/30/16 at 12:00 Acetaminophen (Tylenol Liquid) 650 mg Q6H PRN PEG PAIN AND OR ELEVATED TEMP Last administered on 12/07/16 12:32; Admin Dose 650 MG; Start 11/16/16 at 20:04 Alprazolam (Xanax) 0.5 mg Q12H PRN PEG ANXIETY Last administered on 12/08/16 00:55; Admin Dose 0.5 MG; Start 11/16/16 at 20:30 Ascorbic Acid (Vitamin C) 500 mg BID PEG Last administered on 12/09/16 10:06; Admin Dose 500 MG; Start 11/16/16 at 21:00 Atorvastatin Calcium (Lipitor) 20 mg QHS PEG Last administered on 12/08/16 21: 11; Admin Dose 20 MG; Start 11/16/16 at 21:00 Diazepam (Valium) 10 mg DAILY PEG Last administered on 12/09/16 10:06; Admin Dose 10 MG; Start 11/17/16 at 09:00 Duloxetine HCl (Cymbalta) 20 mg DAILY PEG Last administered on 12/09/16 10:05 ; Admin Dose 20 MG; Start 11/17/16 at 09:00 Lactobacillus Acidophilus (Florajen3 Capsule) 1 each TID PEG Last administered on 12/09/16 10:06; Admin Dose 1 EACH; Start 11/16/16 at 21:00 Promethazine HCl/ Codeine (Phenergan/ Codeine) 10 ml BID PRN PEG COUGH Last administered on 11/30/16 09:36; Admin Dose 10 ML; Start 11/16/16 at 20:00 Zolpidem Tartrate (Ambien) 5 mg QHS PRN PEG INSOMNIA; Start 11/16/16 at 20:00 Docusate Sodium (Colace Liquid Cup) 100 mg Q12 PRN GTB CONSTIPATION; Start 11/16 at 20:00 Oxycodone HCl (Roxicodone) 10 mg Q4H PO Last administered on 12/09/16 10:20; Admin Dose 10 MG; Start 11/20/16 at 17:30 Midodrine (Proamatine) 2.5 mg TID@08,12,17 NGT Last administered on 12/09/16 10:20; Admin Dose 2.5 MG; Start 11/24/16 at 18:33 Furosemide (Lasix) 20 mg DAILY GTB Last administered on 12/09/16 10:08; Admin Dose 20 MG; Start 12/01/16 at 09:00 Metoprolol Tartrate 12.5 mg 12.5 mg BID PO Last administered on 12/09/16 10:09 ; Admin Dose 12.5 MG; Start 12/03/16 at 21:00 Vancomycin HCl (Vancocin) 100 ml @ 100 mls/hr Q12H IVPB Last administered on 06:32; Admin Dose 100 MLS/HR; Start 12/08/16 at 06:00 DIONNE SAUCEDA MD Dec 09, 2016 12:42
[2016-12-09] MEDS: ACETAMINOPHEN 650MG/20.3ML CUP PEG PRN (13:19)
[2016-12-09] MEDS: HYDROmorphONE 1 MG/ML SYG IV PRN (13:20)
--- NOTE | 2016-12-09 13:25 | CONS ---
Date/Time of Note Date/Time of Note DATE: 12/09/16 TIME: 13:24 Assessment/Plan Assessment/Plan Chief Complaint/Hosp Course Left lung squamous carcinoma. The patient is not a candidate for chemotherapy. Anemia of chronic disease. post 11 u prbc monitor blood count closely transfuse as needed to keep HB above 8 Acute respiratory insufficiency requiring BiPAP. trach -per daughter's wishes Acute shock, septic versus hypovolemic. tachycardia with episode of SVT. Chronic obstructive pulmonary disease. Dysphagia with G-tube. Continue current G-tube feeding. Hypothyroidism. Continue Synthroid. Problems: Consultation Date/Type/Reason Admit Date/Time Sep 26, 2016 at 20:07 Initial Consult Date 10/19/16 Type of Consultation: HEMEON Referring Provider: DRE LOBATO MD 24 HR Interval Summary Free Text/Dictation ALL NOTED Exam/Review of Systems Vital Signs Vitals Vital Signs Date Time Temp Pulse Resp B/P Pulse Ox O2 Delivery O2 Flow Rate FiO2 12/09/16 12:24 108 12/09/16 11:45 99.6 18 74/51 96 12/09/16 11:11 35 12/06/16 07:36 Mechanical Ventilator Intake and Output 12/08/16 12/08/16 12/09/16 15:00 23:00 07:00 Intake Total 1020 ml 1020 ml Output Total 650 ml 450 ml Balance 370 ml 570 ml Exam Constitutional: alert Neck: other (trach intact) Respiratory: clear to auscultation, normal air movement Cardiovascular: nl pulses Gastrointestinal: soft Musculoskeletal: muscle weakness Extremities: normal pulses Neurological: other Results Result Diagram: 12/09/16 0522 12/09/16 0522 Results 24 hrs Laboratory Tests Test 12/09/16 05:22 White Blood Count 17.4 #H Red Blood Count 2.40 L Hemoglobin 6.5 *L Hematocrit 21.2 L Mean Corpuscular Volume 88.3 Mean Corpuscular Hemoglobin 27.1 L Mean Corpuscular Hemoglobin Concent 30.7 L Red Cell Distribution Width 16.5 H Platelet Count 322 Mean Platelet Volume 9.6 Neutrophils % 84.0 H Band Neutrophils % 3.0 Lymphocytes % 8.0 L Monocytes % 4.0 Eosinophils % 1.0 Neutrophils # 14.6 H Lymphocytes # 1.4 Monocytes # 0.7 Eosinophils # 0.2 Sodium Level 130 L Potassium Level 4.0 Chloride Level 97 Carbon Dioxide Level 30 Anion Gap 7 L Blood Urea Nitrogen 19 Creatinine 0.55 Glucose Level 106 Calcium Level 7.5 L Vancomycin Level Trough 12.4 Medications Medications Current Medications Ondansetron HCl (Zofran Inj) 4 mg Q6 PRN IV NAUSEA AND/OR VOMITING Last administered on 12/09/16 13:19; Admin Dose 4 MG; Start 09/26/16 at 22:30 Collagenase (Santyl) 1 applic DAILY TOP Last administered on 12/09/16 10:09; Admin Dose 1 APPLIC; Start 09/27/16 at 09:00 Collagenase (Santyl) 1 applic PRN PRN TOP SOILED OR DISLODGED DRESSING; Start 09/27/16 at 05:00 Lansoprazole (Prevacid) 30 mg DAILY@06 GTB Last administered on 12/09/16 06:33 ; Admin Dose 30 MG; Start 09/28/16 at 06:00 Cromolyn Sodium (Nasalcrom) 1 spray QID NASAL Last administered on 12/09/16 13 :04; Admin Dose 1 SPRAY; Start 09/29/16 at 11:02 Phenol (Cepastat Lozenge) 1 lozenge Q2H PRN MT SORE THROAT Last administered on 11/02/16 01:02; Admin Dose 1 LOZENGE; Start 10/01/16 at 19:00 IV Flush (NS 10 ml) 10 ml PRN PRN IV IV PROTOCOL Last administered on 11/17/16 03:20; Admin Dose 10 ML; Start 10/02/16 at 19:00 Hydromorphone HCl (Dilaudid) 0.5 mg Q4H PRN IV PAIN Last administered on 13:20; Admin Dose 0.5 MG; Start 10/06/16 at 18:30 Potassium Chloride (Potassium Chloride Pwd/Soln) 20 meq DAILY GTB Last administered on 12/09/16 10:05; Admin Dose 20 MEQ; Start 10/30/16 at 12:00 Acetaminophen (Tylenol Liquid) 650 mg Q6H PRN PEG PAIN AND OR ELEVATED TEMP Last administered on 12/09/16 13:19; Admin Dose 650 MG; Start 11/16/16 at 20:04 Alprazolam (Xanax) 0.5 mg Q12H PRN PEG ANXIETY Last administered on 12/08/16 00:55; Admin Dose 0.5 MG; Start 11/16/16 at 20:30 Ascorbic Acid (Vitamin C) 500 mg BID PEG Last administered on 12/09/16 10:06; Admin Dose 500 MG; Start 11/16/16 at 21:00 Atorvastatin Calcium (Lipitor) 20 mg QHS PEG Last administered on 12/08/16 21: 11; Admin Dose 20 MG; Start 11/16/16 at 21:00 Diazepam (Valium) 10 mg DAILY PEG Last administered on 12/09/16 10:06; Admin Dose 10 MG; Start 11/17/16 at 09:00 Duloxetine HCl (Cymbalta) 20 mg DAILY PEG Last administered on 12/09/16 10:05 ; Admin Dose 20 MG; Start 11/17/16 at 09:00 Lactobacillus Acidophilus (Florajen3 Capsule) 1 each TID PEG Last administered on 12/09/16 12:59; Admin Dose 1 EACH; Start 11/16/16 at 21:00 Promethazine HCl/ Codeine (Phenergan/ Codeine) 10 ml BID PRN PEG COUGH Last administered on 11/30/16 09:36; Admin Dose 10 ML; Start 11/16/16 at 20:00 Zolpidem Tartrate (Ambien) 5 mg QHS PRN PEG INSOMNIA; Start 11/16/16 at 20:00 Docusate Sodium (Colace Liquid Cup) 100 mg Q12 PRN GTB CONSTIPATION; Start 11/16 at 20:00 Oxycodone HCl (Roxicodone) 10 mg Q4H PO Last administered on 12/09/16 10:20; Admin Dose 10 MG; Start 11/20/16 at 17:30 Midodrine (Proamatine) 2.5 mg TID@08,12,17 NGT Last administered on 12/09/16 12:59; Admin Dose 2.5 MG; Start 11/24/16 at 18:33 Furosemide (Lasix) 20 mg DAILY GTB Last administered on 12/09/16 10:08; Admin Dose 20 MG; Start 12/01/16 at 09:00 Metoprolol Tartrate 12.5 mg 12.5 mg BID PO Last administered on 12/09/16 10:09 ; Admin Dose 12.5 MG; Start 12/03/16 at 21:00 Vancomycin HCl (Vancocin) 100 ml @ 100 mls/hr Q12H IVPB Last administered on 06:32; Admin Dose 100 MLS/HR; Start 12/08/16 at 06:00 DYLLAN CARRION MD Dec 09, 2016 13:25
--- NOTE | 2016-12-09 14:58 | CONS ---
Date/Time of Note Date/Time of Note DATE: 12/09/16 TIME: 14:55 Assessment/Plan Assessment/Plan Chief Complaint/Hosp Course ID PROGRESS NOTE ABX: Vanco IV 24H INTERVAL SUMMARY * Resting comfortably on the Vent, opens eyes, non-communicative * Low grade TMAX 99.6, WBC down * INDWELLINGS: Trach, PEG, George, PICC line. * Micro: 12/07 BCx(-) Bld cx 12/06 + Staph sp Organism 1 COAGULASE NEGATIVE STAPH PHYSICAL EXAMINATION: GENERAL: This is a chronically ill-appearing, frail 66 yo F HEENT: Unremarkable -- wearing eyeglasses NECK: Trach (+) secure to Vent CHEST: Rise symmetrical without dyspnea ABDOMEN: Soft EXTREMITIES: Moves all extremities, Without cyanosis. ID ASSESSMENT: 66 yo F w/PMHx Dementia, CVA(chronic left thalamic lacunar infarction), Tobacco/ COPD-Emphysema/Lung Cancer re-admit with: 1. Sepsis w/Staph CONS bacteremia BCX (+)12/06 -- ?PICC Line? * s/p Acute shock = RESOLVED * Afebrile * Hx of Chronic mild tachycardia - albuterol * Chronic elevated WBC 2. s/p Recurrent UTI = RESOLVED * (+)ACBA * s/p Proteus mirabilis and Klebsiella pneumoniae 3. Urinary retention with chronic George=>Probable neurogenic bladder 5. Acute on Chronic respiratory failure secondary to chronic obstructive pulmonary disease exacerbation. * S/P Trach after unable to wean from Vent 6. Bilateral HCAP per CXR . 7. Multiple decubitus with a history of debridement => Sacrococcygeal ulcer s /p exc boris 8. H/O DJD spine -> Hx of lumbar spinal fusion 9 .H/O Hypertension w/HTN heart disease mild-mod cLVH on ECHO w/diastolic dysfunction STG I 10. Right hand/wrist pain => CT showed triscaphe arthritis -- Probable pseudogout best treated w/NSAIDS 11. Hx of recurrent C.Diff colitis 12. Chronic debility w/Cachexia (+) MRSA Nares screen ->Bactroban INVASIVES: PICC, FC, Peg ALLERGY: PENICILLIN. CURRENT ABX: Vanco IV ID PLAN: * Continue Vanco IV for concern PICC line sepsis -- change PICC vs trial line salvage attempt if repeat BCx remain negative . . Problems: Consultation Date/Type/Reason Admit Date/Time Sep 26, 2016 at 20:07 Type of Consultation: ID Referring Provider: DRE LOBATO MD Exam/Review of Systems Vital Signs Vitals Vital Signs Date Time Temp Pulse Resp B/P Pulse Ox O2 Delivery O2 Flow Rate FiO2 12/09/16 13:15 106 18 98 35 12/09/16 11:45 99.6 74/51 12/06/16 07:36 Mechanical Ventilator Intake and Output 12/08/16 12/08/16 12/09/16 15:00 23:00 07:00 Intake Total 1020 ml 1020 ml Output Total 650 ml 450 ml Balance 370 ml 570 ml Results Result Diagram: 12/09/1652112/09/16 05 Results 24 hrs Laboratory Tests Test 12/09/16 05:22 White Blood Count 17.4 #H Red Blood Count 2.40 L Hemoglobin 6.5 *L Hematocrit 21.2 L Mean Corpuscular Volume 88.3 Mean Corpuscular Hemoglobin 27.1 L Mean Corpuscular Hemoglobin Concent 30.7 L Red Cell Distribution Width 16.5 H Platelet Count 322 Mean Platelet Volume 9.6 Neutrophils % 84.0 H Band Neutrophils % 3.0 Lymphocytes % 8.0 L Monocytes % 4.0 Eosinophils % 1.0 Neutrophils # 14.6 H Lymphocytes # 1.4 Monocytes # 0.7 Eosinophils # 0.2 Sodium Level 130 L Potassium Level 4.0 Chloride Level 97 Carbon Dioxide Level 30 Anion Gap 7 L Blood Urea Nitrogen 19 Creatinine 0.55 Glucose Level 106 Calcium Level 7.5 L Vancomycin Level Trough 12.4 Medications Medications Current Medications Ondansetron HCl (Zofran Inj) 4 mg Q6 PRN IV NAUSEA AND/OR VOMITING Last administered on 12/09/16 13:19; Admin Dose 4 MG; Start 09/26/16 at 22:30 Collagenase (Santyl) 1 applic DAILY TOP Last administered on 12/09/16 10:09; Admin Dose 1 APPLIC; Start 09/27/16 at 09:00 Collagenase (Santyl) 1 applic PRN PRN TOP SOILED OR DISLODGED DRESSING; Start 09/27/16 at 05:00 Lansoprazole (Prevacid) 30 mg DAILY@06 GTB Last administered on 12/09/16 06:33 ; Admin Dose 30 MG; Start 09/28/16 at 06:00 Cromolyn Sodium (Nasalcrom) 1 spray QID NASAL Last administered on 12/09/16 13 :04; Admin Dose 1 SPRAY; Start 09/29/16 at 11:02 Phenol (Cepastat Lozenge) 1 lozenge Q2H PRN MT SORE THROAT Last administered on 11/02/16 01:02; Admin Dose 1 LOZENGE; Start 10/01/16 at 19:00 IV Flush (NS 10 ml) 10 ml PRN PRN IV IV PROTOCOL Last administered on 11/17/16 03:20; Admin Dose 10 ML; Start 10/02/16 at 19:00 Hydromorphone HCl (Dilaudid) 0.5 mg Q4H PRN IV PAIN Last administered on 13:20; Admin Dose 0.5 MG; Start 10/06/16 at 18:30 Potassium Chloride (Potassium Chloride Pwd/Soln) 20 meq DAILY GTB Last administered on 12/09/16 10:05; Admin Dose 20 MEQ; Start 10/30/16 at 12:00 Acetaminophen (Tylenol Liquid) 650 mg Q6H PRN PEG PAIN AND OR ELEVATED TEMP Last administered on 12/09/16 13:19; Admin Dose 650 MG; Start 11/16/16 at 20:04 Alprazolam (Xanax) 0.5 mg Q12H PRN PEG ANXIETY Last administered on 12/08/16 00:55; Admin Dose 0.5 MG; Start 11/16/16 at 20:30 Ascorbic Acid (Vitamin C) 500 mg BID PEG Last administered on 12/09/16 10:06; Admin Dose 500 MG; Start 11/16/16 at 21:00 Atorvastatin Calcium (Lipitor) 20 mg QHS PEG Last administered on 12/08/16 21: 11; Admin Dose 20 MG; Start 11/16/16 at 21:00 Diazepam (Valium) 10 mg DAILY PEG Last administered on 12/09/16 10:06; Admin Dose 10 MG; Start 11/17/16 at 09:00 Duloxetine HCl (Cymbalta) 20 mg DAILY PEG Last administered on 12/09/16 10:05 ; Admin Dose 20 MG; Start 11/17/16 at 09:00 Lactobacillus Acidophilus (Florajen3 Capsule) 1 each TID PEG Last administered on 12/09/16 12:59; Admin Dose 1 EACH; Start 11/16/16 at 21:00 Promethazine HCl/ Codeine (Phenergan/ Codeine) 10 ml BID PRN PEG COUGH Last administered on 11/30/16 09:36; Admin Dose 10 ML; Start 11/16/16 at 20:00 Zolpidem Tartrate (Ambien) 5 mg QHS PRN PEG INSOMNIA; Start 11/16/16 at 20:00 Docusate Sodium (Colace Liquid Cup) 100 mg Q12 PRN GTB CONSTIPATION; Start 11/16 at 20:00 Oxycodone HCl (Roxicodone) 10 mg Q4H PO Last administered on 12/09/16 10:20; Admin Dose 10 MG; Start 11/20/16 at 17:30 Midodrine (Proamatine) 2.5 mg TID@08,12,17 NGT Last administered on 12/09/16 12:59; Admin Dose 2.5 MG; Start 11/24/16 at 18:33 Furosemide (Lasix) 20 mg DAILY GTB Last administered on 12/09/16 10:08; Admin Dose 20 MG; Start 12/01/16 at 09:00 Metoprolol Tartrate 12.5 mg 12.5 mg BID PO Last administered on 12/09/16 10:09 ; Admin Dose 12.5 MG; Start 12/03/16 at 21:00 Vancomycin HCl (Vancocin) 100 ml @ 100 mls/hr Q12H IVPB Last administered on 06:32; Admin Dose 100 MLS/HR; Start 12/08/16 at 06:00 ALMA ROSARIO NP Dec 09, 2016 14:58
[2016-12-09] MEDS: ATORVASTATIN 20 MG TAB PEG SCH (21:43)
[2016-12-10] VITALS (25 sets, daily range): BP systolic 89–111; BP diastolic 59–79; PULSE 84–110; RESP 17–20
[2016-12-10] MEDS: oxyCODONE 5 MG TAB PO SCH ×6 (01:30→21:20)
[2016-12-10] MEDS: LANSOPRAZOLE 30 MG CAP GTB SCH (05:37)
[2016-12-10] MEDS: LEVOTHYROXINE 125 MCG TAB PEG SCH (06:38)
[2016-12-10] MEDS: VANCOMYCIN 500MG/NS (PMX) 100 ML IVPB SCH ×2 (06:42→17:34)
[2016-12-10] MEDS: FUROSEMIDE 20 MG TAB GTB SCH (08:27)
[2016-12-10] MEDS: METOPROLOL 25 MG TAB PO SCH ×2 (08:28→21:19)
[2016-12-10] MEDS: POTASSIUM CHLORIDE 20 MEQ POWDER FOR ORAL SOLN GTB SCH (09:29)
[2016-12-10] MEDS: MIDODRINE 2.5 MG TAB NGT SCH ×3 (09:29→17:34)
[2016-12-10] MEDS: DULOXETINE 20 MG CAP DR PEG SCH (09:29)
[2016-12-10] MEDS: ASCORBIC ACID 500 MG TAB PEG SCH ×2 (09:30→21:18)
[2016-12-10] MEDS: L ACIDOPHIL/B LACTIS/B LONGUM CAPSULE PEG SCH ×3 (09:30→21:17)
[2016-12-10] MEDS: CROMOLYN 4% 26ML NAS INH NASAL SCH ×4 (09:30→21:17)
[2016-12-10] MEDS: COLLAGENASE 30 GM TUBE TOP SCH (09:30)
[2016-12-10] MEDS: DIAZEPAM 5 MG TAB PEG SCH (10:06)
--- NOTE | 2016-12-10 12:07 | PN ---
Date/Time of Note Date/Time of Note DATE: 12/10/16 TIME: 12:06 Assessment/Plan VTE Prophylaxis VTE Prophylaxis Intervention: other Lines/Catheters IV Catheter Type (from Nrs): PICC Line Central line still needed: Yes Urinary Cath still in place: Yes Reason Cath still needed: skin wounds contaminated by urine Assessment/Plan Chief Complaint/Hosp Course - Recurrent sepsis with Staphylococcus bacteremia, continue vancomycin. Dr. Coleman is following an infection disease consultation. - Status post tracheostomy by Dr. White, ENT on 11/28. - Status post cardiopulmonary arrest. - Acute respiratory failure. Continue breathing treatment, oxygen supply supplementation and bronchodilators. Dr. Lopez is following in pulmonology consultation. - Left lung squamous carcinoma. The patient is not a candidate for chemotherapy. Dr. Calvo is following in oncology consultation. - Chronic obstructive pulmonary disease. Patient with long history of tobacco use. - Anemia of chronic disease. Continue to monitor hemoglobin and hematocrit. - Dysphagia with G-tube. Continue G-tube feeding, monitor residual. Continue aspiration precautions. - Hypothyroidism. Continue Synthroid. - Chronic pain. - Failure to thrive. Problems: Subjective 24 Hr Interval Summary Free Text/Dictation Patient awake, trach in place Exam/Review of Systems Vital Signs Vitals Vital Signs Date Time Temp Pulse Resp B/P Pulse Ox O2 Delivery O2 Flow Rate FiO2 12/10/16 11:46 98.0 95 18 97/60 96 12/10/16 09:57 35 12/06/16 07:36 Mechanical Ventilator Intake and Output 12/09/16 12/09/16 12/10/16 15:00 23:00 07:00 Intake Total 1230 ml Output Total 775 ml Balance 455 ml Exam Constitutional: well developed Head: atraumatic, normocephalic Neck: supple Respiratory: diminished breath sounds Cardiovascular: regular rate and rhythm Gastrointestinal: non-tender, soft Extremities: normal pulses Results Result Diagram: 12/09/1652112/09/16521 Medications Medications Current Medications Ondansetron HCl (Zofran Inj) 4 mg Q6 PRN IV NAUSEA AND/OR VOMITING Last administered on 12/09/16 13:19; Admin Dose 4 MG; Start 09/26/16 at 22:30 Collagenase (Santyl) 1 applic DAILY TOP Last administered on 12/10/16 09:30; Admin Dose 1 APPLIC; Start 09/27/16 at 09:00 Collagenase (Santyl) 1 applic PRN PRN TOP SOILED OR DISLODGED DRESSING; Start 09/27/16 at 05:00 Lansoprazole (Prevacid) 30 mg DAILY@06 GTB Last administered on 12/10/16 05:37 ; Admin Dose 30 MG; Start 09/28/16 at 06:00 Cromolyn Sodium (Nasalcrom) 1 spray QID NASAL Last administered on 12/10/16 09 :30; Admin Dose 1 SPRAY; Start 09/29/16 at 11:02 Phenol (Cepastat Lozenge) 1 lozenge Q2H PRN MT SORE THROAT Last administered on 11/02/16 01:02; Admin Dose 1 LOZENGE; Start 10/01/16 at 19:00 IV Flush (NS 10 ml) 10 ml PRN PRN IV IV PROTOCOL Last administered on 11/17/16 03:20; Admin Dose 10 ML; Start 10/02/16 at 19:00 Hydromorphone HCl (Dilaudid) 0.5 mg Q4H PRN IV PAIN Last administered on 13:20; Admin Dose 0.5 MG; Start 10/06/16 at 18:30 Potassium Chloride (Potassium Chloride Pwd/Soln) 20 meq DAILY GTB Last administered on 12/10/16 09:29; Admin Dose 20 MEQ; Start 10/30/16 at 12:00 Acetaminophen (Tylenol Liquid) 650 mg Q6H PRN PEG PAIN AND OR ELEVATED TEMP Last administered on 12/09/16 13:19; Admin Dose 650 MG; Start 11/16/16 at 20:04 Alprazolam (Xanax) 0.5 mg Q12H PRN PEG ANXIETY Last administered on 12/08/16 00:55; Admin Dose 0.5 MG; Start 11/16/16 at 20:30 Ascorbic Acid (Vitamin C) 500 mg BID PEG Last administered on 12/10/16 09:30; Admin Dose 500 MG; Start 11/16/16 at 21:00 Atorvastatin Calcium (Lipitor) 20 mg QHS PEG Last administered on 12/09/16 21: 43; Admin Dose 20 MG; Start 11/16/16 at 21:00 Diazepam (Valium) 10 mg DAILY PEG Last administered on 12/10/16 10:06; Admin Dose 10 MG; Start 11/17/16 at 09:00 Duloxetine HCl (Cymbalta) 20 mg DAILY PEG Last administered on 12/10/16 09:29 ; Admin Dose 20 MG; Start 11/17/16 at 09:00 Lactobacillus Acidophilus (Florajen3 Capsule) 1 each TID PEG Last administered on 12/10/16 09:30; Admin Dose 1 EACH; Start 11/16/16 at 21:00 Promethazine HCl/ Codeine (Phenergan/ Codeine) 10 ml BID PRN PEG COUGH Last administered on 11/30/16 09:36; Admin Dose 10 ML; Start 11/16/16 at 20:00 Zolpidem Tartrate (Ambien) 5 mg QHS PRN PEG INSOMNIA; Start 11/16/16 at 20:00 Docusate Sodium (Colace Liquid Cup) 100 mg Q12 PRN GTB CONSTIPATION; Start 11/16 at 20:00 Oxycodone HCl (Roxicodone) 10 mg Q4H PO Last administered on 12/10/16 09:30; Admin Dose 10 MG; Start 11/20/16 at 17:30 Midodrine (Proamatine) 2.5 mg TID@08,12,17 NGT Last administered on 12/10/16 09:29; Admin Dose 2.5 MG; Start 11/24/16 at 18:33 Furosemide (Lasix) 20 mg DAILY GTB Last administered on 12/09/16 10:08; Admin Dose 20 MG; Start 12/01/16 at 09:00 Metoprolol Tartrate 12.5 mg 12.5 mg BID PO Last administered on 12/09/16 10:09 ; Admin Dose 12.5 MG; Start 12/03/16 at 21:00 Vancomycin HCl (Vancocin) 100 ml @ 100 mls/hr Q12H IVPB Last administered on 06:42; Admin Dose 100 MLS/HR; Start 12/08/16 at 06:00 MICHAEL HOROWITZ Dec 10, 2016 12:07
--- NOTE | 2016-12-10 12:43 | CONS ---
Date/Time of Note Date/Time of Note DATE: 12/10/16 TIME: 12:43 Assessment/Plan Assessment/Plan Chief Complaint/Hosp Course Left lung squamous carcinoma. The patient is not a candidate for chemotherapy. Anemia of chronic disease. post 12 u prbc monitor blood count closely transfuse as needed to keep HB above 8 Acute respiratory insufficiency requiring BiPAP. trach -per daughter's wishes Acute shock, septic versus hypovolemic. tachycardia with episode of SVT. Chronic obstructive pulmonary disease. Dysphagia with G-tube. Continue current G-tube feeding. Hypothyroidism. Continue Synthroid. Problems: Consultation Date/Type/Reason Admit Date/Time Sep 26, 2016 at 20:07 Initial Consult Date 10/19/16 Type of Consultation: HEMEONC Referring Provider: DRE LOBATO MD 24 HR Interval Summary Free Text/Dictation POST 12 U PRBC Exam/Review of Systems Vital Signs Vitals Vital Signs Date Time Temp Pulse Resp B/P Pulse Ox O2 Delivery O2 Flow Rate FiO2 12/10/16 12:39 93 12/10/16 12:13 20 98 35 12/10/16 11:46 98.0 97/60 12/06/16 07:36 Mechanical Ventilator Intake and Output 12/09/16 12/09/16 12/10/16 15:00 23:00 07:00 Intake Total 1230 ml Output Total 775 ml Balance 455 ml Exam Constitutional: alert Neck: other (trach intact) Respiratory: clear to auscultation, normal air movement Cardiovascular: nl pulses Gastrointestinal: soft Musculoskeletal: muscle weakness Extremities: normal pulses Neurological: other Results Result Diagram: 12/09/1652112/09/16521 Medications Medications Current Medications Ondansetron HCl (Zofran Inj) 4 mg Q6 PRN IV NAUSEA AND/OR VOMITING Last administered on 12/09/16 13:19; Admin Dose 4 MG; Start 09/26/16 at 22:30 Collagenase (Santyl) 1 applic DAILY TOP Last administered on 12/10/16 09:30; Admin Dose 1 APPLIC; Start 09/27/16 at 09:00 Collagenase (Santyl) 1 applic PRN PRN TOP SOILED OR DISLODGED DRESSING; Start 09/27/16 at 05:00 Lansoprazole (Prevacid) 30 mg DAILY@06 GTB Last administered on 12/10/16 05:37 ; Admin Dose 30 MG; Start 09/28/16 at 06:00 Cromolyn Sodium (Nasalcrom) 1 spray QID NASAL Last administered on 12/10/16 09 :30; Admin Dose 1 SPRAY; Start 09/29/16 at 11:02 Phenol (Cepastat Lozenge) 1 lozenge Q2H PRN MT SORE THROAT Last administered on 11/02/16 01:02; Admin Dose 1 LOZENGE; Start 10/01/16 at 19:00 IV Flush (NS 10 ml) 10 ml PRN PRN IV IV PROTOCOL Last administered on 11/17/16 03:20; Admin Dose 10 ML; Start 10/02/16 at 19:00 Hydromorphone HCl (Dilaudid) 0.5 mg Q4H PRN IV PAIN Last administered on 13:20; Admin Dose 0.5 MG; Start 10/06/16 at 18:30 Potassium Chloride (Potassium Chloride Pwd/Soln) 20 meq DAILY GTB Last administered on 12/10/16 09:29; Admin Dose 20 MEQ; Start 10/30/16 at 12:00 Acetaminophen (Tylenol Liquid) 650 mg Q6H PRN PEG PAIN AND OR ELEVATED TEMP Last administered on 12/09/16 13:19; Admin Dose 650 MG; Start 11/16/16 at 20:04 Alprazolam (Xanax) 0.5 mg Q12H PRN PEG ANXIETY Last administered on 12/08/16 00:55; Admin Dose 0.5 MG; Start 11/16/16 at 20:30 Ascorbic Acid (Vitamin C) 500 mg BID PEG Last administered on 12/10/16 09:30; Admin Dose 500 MG; Start 11/16/16 at 21:00 Atorvastatin Calcium (Lipitor) 20 mg QHS PEG Last administered on 12/09/16 21: 43; Admin Dose 20 MG; Start 11/16/16 at 21:00 Diazepam (Valium) 10 mg DAILY PEG Last administered on 12/10/16 10:06; Admin Dose 10 MG; Start 11/17/16 at 09:00 Duloxetine HCl (Cymbalta) 20 mg DAILY PEG Last administered on 12/10/16 09:29 ; Admin Dose 20 MG; Start 11/17/16 at 09:00 Lactobacillus Acidophilus (Florajen3 Capsule) 1 each TID PEG Last administered on 12/10/16 09:30; Admin Dose 1 EACH; Start 11/16/16 at 21:00 Promethazine HCl/ Codeine (Phenergan/ Codeine) 10 ml BID PRN PEG COUGH Last administered on 11/30/16 09:36; Admin Dose 10 ML; Start 11/16/16 at 20:00 Zolpidem Tartrate (Ambien) 5 mg QHS PRN PEG INSOMNIA; Start 11/16/16 at 20:00 Docusate Sodium (Colace Liquid Cup) 100 mg Q12 PRN GTB CONSTIPATION; Start 11/16 at 20:00 Oxycodone HCl (Roxicodone) 10 mg Q4H PO Last administered on 12/10/16 09:30; Admin Dose 10 MG; Start 11/20/16 at 17:30 Midodrine (Proamatine) 2.5 mg TID@08,12,17 NGT Last administered on 12/10/16 09:29; Admin Dose 2.5 MG; Start 11/24/16 at 18:33 Furosemide (Lasix) 20 mg DAILY GTB Last administered on 12/09/16 10:08; Admin Dose 20 MG; Start 12/01/16 at 09:00 Metoprolol Tartrate 12.5 mg 12.5 mg BID PO Last administered on 12/09/16 10:09 ; Admin Dose 12.5 MG; Start 12/03/16 at 21:00 Vancomycin HCl (Vancocin) 100 ml @ 100 mls/hr Q12H IVPB Last administered on 06:42; Admin Dose 100 MLS/HR; Start 12/08/16 at 06:00 DYLLAN CARRION MD Dec 10, 2016 12:43
--- NOTE | 2016-12-10 15:44 | CONS ---
Date/Time of Note Date/Time of Note DATE: 12/10/16 TIME: 15:41 Assessment/Plan Assessment/Plan Additional Assessment/Plan 1. acute on chronic resp failure intubated on ventilator- not able to wean off s/p Tracheostomy 2. PEA s/p resuscitation 3. Hyponatremia multifactorial 4. Pneumonia. 3. Lung cancer. 4. History of Clostridium difficile colitis and recurrent urinary tract infection. 5. Unstageable sacral wound, status post debridement with wound VAC application. PLAN: conitnue IV abx, ID following, S/p Tracheostomy making good urine Na 130, Cr normal will follow up Further recommendations depend upon patient's clinical course. Plan of care dw Dr. Celeste Zapata/staff/patient. Consultation Date/Type/Reason Admit Date/Time Sep 26, 2016 at 20:07 Initial Consult Date 10/19/16 [facility] Referring Provider: DRE LOBATO MD 24 HR Interval Summary Constitutional: requiring IVF, requiring O2 Exam/Review of Systems Vital Signs Vitals Vital Signs Date Time Temp Pulse Resp B/P Pulse Ox O2 Delivery O2 Flow Rate FiO2 12/10/16 15:23 98.6 113 18 97/61 94 12/10/16 14:17 35 12/06/16 07:36 Mechanical Ventilator Intake and Output 12/09/16 12/09/16 12/10/16 14:59 22:59 06:59 Intake Total 1230 ml Output Total 775 ml Balance 455 ml Exam Respiratory: diminished breath sounds Cardiovascular: nl pulses, regular rate and rhythm (ST- HR 110) Gastrointestinal: non-tender, soft Musculoskeletal: muscle weakness Extremities: normal pulses Neurological: lethargic Results Result Diagram: 12/09/1622 12/09/16521 Medications Medications Current Medications Ondansetron HCl (Zofran Inj) 4 mg Q6 PRN IV NAUSEA AND/OR VOMITING Last administered on 12/09/16 13:19; Admin Dose 4 MG; Start 09/26/16 at 22:30 Collagenase (Santyl) 1 applic DAILY TOP Last administered on 12/10/16 09:30; Admin Dose 1 APPLIC; Start 09/27/16 at 09:00 Collagenase (Santyl) 1 applic PRN PRN TOP SOILED OR DISLODGED DRESSING; Start 09/27/16 at 05:00 Lansoprazole (Prevacid) 30 mg DAILY@06 GTB Last administered on 12/10/16 05:37 ; Admin Dose 30 MG; Start 09/28/16 at 06:00 Cromolyn Sodium (Nasalcrom) 1 spray QID NASAL Last administered on 12/10/16 13 :34; Admin Dose 1 SPRAY; Start 09/29/16 at 11:02 Phenol (Cepastat Lozenge) 1 lozenge Q2H PRN MT SORE THROAT Last administered on 11/02/16 01:02; Admin Dose 1 LOZENGE; Start 10/01/16 at 19:00 IV Flush (NS 10 ml) 10 ml PRN PRN IV IV PROTOCOL Last administered on 11/17/16 03:20; Admin Dose 10 ML; Start 10/02/16 at 19:00 Hydromorphone HCl (Dilaudid) 0.5 mg Q4H PRN IV PAIN Last administered on 13:20; Admin Dose 0.5 MG; Start 10/06/16 at 18:30 Potassium Chloride (Potassium Chloride Pwd/Soln) 20 meq DAILY GTB Last administered on 12/10/16 09:29; Admin Dose 20 MEQ; Start 10/30/16 at 12:00 Acetaminophen (Tylenol Liquid) 650 mg Q6H PRN PEG PAIN AND OR ELEVATED TEMP Last administered on 12/09/16 13:19; Admin Dose 650 MG; Start 11/16/16 at 20:04 Alprazolam (Xanax) 0.5 mg Q12H PRN PEG ANXIETY Last administered on 12/08/16 00:55; Admin Dose 0.5 MG; Start 11/16/16 at 20:30 Ascorbic Acid (Vitamin C) 500 mg BID PEG Last administered on 12/10/16 09:30; Admin Dose 500 MG; Start 11/16/16 at 21:00 Atorvastatin Calcium (Lipitor) 20 mg QHS PEG Last administered on 12/09/16 21: 43; Admin Dose 20 MG; Start 11/16/16 at 21:00 Diazepam (Valium) 10 mg DAILY PEG Last administered on 12/10/16 10:06; Admin Dose 10 MG; Start 11/17/16 at 09:00 Duloxetine HCl (Cymbalta) 20 mg DAILY PEG Last administered on 12/10/16 09:29 ; Admin Dose 20 MG; Start 11/17/16 at 09:00 Lactobacillus Acidophilus (Florajen3 Capsule) 1 each TID PEG Last administered on 12/10/16 13:33; Admin Dose 1 EACH; Start 11/16/16 at 21:00 Promethazine HCl/ Codeine (Phenergan/ Codeine) 10 ml BID PRN PEG COUGH Last administered on 11/30/16 09:36; Admin Dose 10 ML; Start 11/16/16 at 20:00 Zolpidem Tartrate (Ambien) 5 mg QHS PRN PEG INSOMNIA; Start 11/16/16 at 20:00 Docusate Sodium (Colace Liquid Cup) 100 mg Q12 PRN GTB CONSTIPATION; Start 11/16 at 20:00 Oxycodone HCl (Roxicodone) 10 mg Q4H PO Last administered on 12/10/16 13:34; Admin Dose 10 MG; Start 11/20/16 at 17:30 Midodrine (Proamatine) 2.5 mg TID@08,12,17 NGT Last administered on 12/10/16 13:33; Admin Dose 2.5 MG; Start 11/24/16 at 18:33 Furosemide (Lasix) 20 mg DAILY GTB Last administered on 12/09/16 10:08; Admin Dose 20 MG; Start 12/01/16 at 09:00 Metoprolol Tartrate 12.5 mg 12.5 mg BID PO Last administered on 12/09/16 10:09 ; Admin Dose 12.5 MG; Start 12/03/16 at 21:00 Vancomycin HCl (Vancocin) 100 ml @ 100 mls/hr Q12H IVPB Last administered on 06:42; Admin Dose 100 MLS/HR; Start 12/08/16 at 06:00 VIKASH CASTANEDA Dec 10, 2016 15:44
--- NOTE | 2016-12-10 16:24 | PN ---
DATE: 12/10/2016 SUBJECTIVE: Chart reviewed. No significant changes noted. The patient on 35% FIO2, saturating 98% . OBJECTIVE: VITAL SIGNS: Blood pressure 97/60, pulse 95, respiration 18, temperature 98. HEENT: Pupils are equal and react to light. NECK: Supple, no JVD noted, no cervical lymphadenopathy noted, no carotid bruits heard. LUNGS: Fair breath sounds bilaterally. CARDIOVASCULAR: S1, S2 normal. ABDOMEN: Soft, nontender, no organomegaly or masses noted. EXTREMITIES: No clubbing or cyanosis noted. NEUROLOGIC: No changes. IMPRESSION: 1. Ventilator-dependent respiratory failure, hypoxemic. 2. Status post cardiac arrest. 3. Anoxic encephalopathy. 4. History of chronic obstructive pulmonary disease. 5. History of lung cancer. 6. Severe anemia. 7. Encephalopathy. PLAN: 1. Continue vent support. 2. Continue antibiotics per ID. 3. Transfusion per primary care team. 4. Infectious disease recommendations noted. 5. Follow up labs. Dictated By: RUBEN NIELSEN MD, MA/SANDER Conf#: [id number] DID#: [id number]
--- NOTE | 2016-12-10 17:37 | CONS ---
Date/Time of Note Date/Time of Note DATE: 12/10/16 TIME: 17:36 Assessment/Plan Assessment/Plan Chief Complaint/Hosp Course SUBJECTIVE: Awake, looks comfortable, no fevers INDWELLINGS: Trach, PEG, George, PICC line. Micro: Bld cx 12/06 + Staph sp Abx: Vancomycin PHYSICAL EXAMINATION: GENERAL: Fragile cachectic elderly woman who is in no distress. HEENT: Head atraumatic, normocephalic. Sclerae anicteric. Buccal mucosa dry. NECK: Supple. Tracheostomy present. CHEST: Rise symmetrical. Breath sounds diminished to bases. HEART: S1, S2. ABDOMEN: Soft, bowel tones present. EXTREMITIES: With trace dependent edema. ASSESSMENT: 1. Staph bacteremia, poss 2 to infected PICC 2. Status post septic shock, urinary tract infection, and pneumonia. 3. Chronic respiratory failure. 4. Lung cancer. 5. History of Clostridium difficile colitis. 6. Unstageable sacral decubitus, status post debridement with wound VAC, completed 6 weeks antibiotics. 7. Cachexia. 7. Dysphagia, status post percutaneous endoscopic gastrostomy. PLAN: Clinically stable, repeat bld cx negative, Vanco restarted for bacteremia, consider PICC change DW staff Problems: Consultation Date/Type/Reason Admit Date/Time Sep 26, 2016 at 20:07 Type of Consultation: id Referring Provider: DRE LOBATO MD Exam/Review of Systems Vital Signs Vitals Vital Signs Date Time Temp Pulse Resp B/P Pulse Ox O2 Delivery O2 Flow Rate FiO2 12/10/16 16:35 110 12/10/16 16:05 18 97 35 12/10/16 15:23 98.6 97/61 12/06/16 07:36 Mechanical Ventilator Intake and Output 12/09/16 12/09/16 12/10/16 15:00 23:00 07:00 Intake Total 1230 ml Output Total 775 ml Balance 455 ml Results Result Diagram: 12/09/1652112/09/16521 Medications Medications Current Medications Ondansetron HCl (Zofran Inj) 4 mg Q6 PRN IV NAUSEA AND/OR VOMITING Last administered on 12/09/16 13:19; Admin Dose 4 MG; Start 09/26/16 at 22:30 Collagenase (Santyl) 1 applic DAILY TOP Last administered on 12/10/16 09:30; Admin Dose 1 APPLIC; Start 09/27/16 at 09:00 Collagenase (Santyl) 1 applic PRN PRN TOP SOILED OR DISLODGED DRESSING; Start 09/27/16 at 05:00 Lansoprazole (Prevacid) 30 mg DAILY@06 GTB Last administered on 12/10/16 05:37 ; Admin Dose 30 MG; Start 09/28/16 at 06:00 Cromolyn Sodium (Nasalcrom) 1 spray QID NASAL Last administered on 12/10/16 17 :33; Admin Dose 1 SPRAY; Start 09/29/16 at 11:02 Phenol (Cepastat Lozenge) 1 lozenge Q2H PRN MT SORE THROAT Last administered on 11/02/16 01:02; Admin Dose 1 LOZENGE; Start 10/01/16 at 19:00 IV Flush (NS 10 ml) 10 ml PRN PRN IV IV PROTOCOL Last administered on 11/17/16 03:20; Admin Dose 10 ML; Start 10/02/16 at 19:00 Hydromorphone HCl (Dilaudid) 0.5 mg Q4H PRN IV PAIN Last administered on 13:20; Admin Dose 0.5 MG; Start 10/06/16 at 18:30 Potassium Chloride (Potassium Chloride Pwd/Soln) 20 meq DAILY GTB Last administered on 12/10/16 09:29; Admin Dose 20 MEQ; Start 10/30/16 at 12:00 Acetaminophen (Tylenol Liquid) 650 mg Q6H PRN PEG PAIN AND OR ELEVATED TEMP Last administered on 12/09/16 13:19; Admin Dose 650 MG; Start 11/16/16 at 20:04 Alprazolam (Xanax) 0.5 mg Q12H PRN PEG ANXIETY Last administered on 12/08/16 00:55; Admin Dose 0.5 MG; Start 11/16/16 at 20:30 Ascorbic Acid (Vitamin C) 500 mg BID PEG Last administered on 12/10/16 09:30; Admin Dose 500 MG; Start 11/16/16 at 21:00 Atorvastatin Calcium (Lipitor) 20 mg QHS PEG Last administered on 12/09/16 21: 43; Admin Dose 20 MG; Start 11/16/16 at 21:00 Diazepam (Valium) 10 mg DAILY PEG Last administered on 12/10/16 10:06; Admin Dose 10 MG; Start 11/17/16 at 09:00 Duloxetine HCl (Cymbalta) 20 mg DAILY PEG Last administered on 12/10/16 09:29 ; Admin Dose 20 MG; Start 11/17/16 at 09:00 Lactobacillus Acidophilus (Florajen3 Capsule) 1 each TID PEG Last administered on 12/10/16 13:33; Admin Dose 1 EACH; Start 11/16/16 at 21:00 Promethazine HCl/ Codeine (Phenergan/ Codeine) 10 ml BID PRN PEG COUGH Last administered on 11/30/16 09:36; Admin Dose 10 ML; Start 11/16/16 at 20:00 Zolpidem Tartrate (Ambien) 5 mg QHS PRN PEG INSOMNIA; Start 11/16/16 at 20:00 Docusate Sodium (Colace Liquid Cup) 100 mg Q12 PRN GTB CONSTIPATION; Start 11/16 at 20:00 Oxycodone HCl (Roxicodone) 10 mg Q4H PO Last administered on 12/10/16 17:34; Admin Dose 10 MG; Start 11/20/16 at 17:30 Midodrine (Proamatine) 2.5 mg TID@08,12,17 NGT Last administered on 12/10/16 17:34; Admin Dose 2.5 MG; Start 11/24/16 at 18:33 Furosemide (Lasix) 20 mg DAILY GTB Last administered on 12/09/16 10:08; Admin Dose 20 MG; Start 12/01/16 at 09:00 Metoprolol Tartrate 12.5 mg 12.5 mg BID PO Last administered on 12/09/16 10:09 ; Admin Dose 12.5 MG; Start 12/03/16 at 21:00 Vancomycin HCl (Vancocin) 100 ml @ 100 mls/hr Q12H IVPB Last administered on 17:34; Admin Dose 100 MLS/HR; Start 12/08/16 at 06:00 RUBIN MAYEN NP Dec 10, 2016 17:37
[2016-12-10] MEDS: ATORVASTATIN 20 MG TAB PEG SCH (21:18)
[2016-12-11] VITALS (22 sets, daily range): BP systolic 91–104; BP diastolic 55–70; PULSE 84–103; RESP 18–22
[2016-12-11] MEDS: oxyCODONE 5 MG TAB PO SCH ×6 (01:21→21:20)
[2016-12-11] MEDS: LANSOPRAZOLE 30 MG CAP GTB SCH (05:55)
[2016-12-11] MEDS: VANCOMYCIN 500MG/NS (PMX) 100 ML IVPB SCH ×2 (05:55→18:45)
[2016-12-11] MEDS: LEVOTHYROXINE 125 MCG TAB PEG SCH (06:40)
[2016-12-11 07:21] LABS: ADD SCAN DIFF NO
[2016-12-11 07:34] LABS: BASOPHIL # 0.1 10^3/ul (0.0-0.1); BASOPHILS % 0.5 % (0.0-2.0); EOSINOPHILS # 0.5 10^3/ul (0.0-0.5); EOSINOPHILS % 3.5 % (0.0-7.0); HEMOGLOBIN 8.4 g/dl (12.0-16.0); LYMPHOCYTES # 1.7 10^3/ul (0.8-2.9); LYMPHOCYTES % 12.1 % (15.0-51.0); MEAN CORPUSCULAR HEMOGLOBIN 26.3 pg (29.0-33.0); MEAN CORPUSCULAR VOLUME 87.8 fl (82.0-101.0); MONOCYTE # 1.3 10^3/ul (0.3-0.9); NEUTROPHIL # 10.7 10^3/ul (1.6-7.5); NEUTROPHILS % 74.3 % (39.0-77.0); PLATELET COUNT 385 10^3/UL (140-415); RED BLOOD COUNT 3.19 10^6/ul (4.20-5.40); RED CELL DISTRIBUTION WIDTH 16.4 % (11.5-14.5); WHITE BLOOD COUNT 14.4 10^3/ul (4.8-10.8)
--- NOTE | 2016-12-11 08:37 | PN ---
Date/Time of Note Date/Time of Note DATE: 12/11/16 TIME: 08:36 Assessment/Plan VTE Prophylaxis VTE Prophylaxis Intervention: SCD's Lines/Catheters IV Catheter Type (from [facility]): PICC Line Central line still needed: No Urinary Cath still in place: Yes Reason Cath still needed: urinary retention Assessment/Plan Chief Complaint/Hosp Course Patient is a 66-year-old female with anemia and cancer presents for anemia and leukocytosis. The patient was sent by Dr. Dozier from [facility] for admission. The patient said that she was "not feeling well all weekend". She was brought in by ambulance. She said that she had a fever but did not check her temperature. She has had cough and urinary symptoms as well as sore throat. The patient had peristent hypotension but no sycnope and remains stabe with no chest pain and no overt CHF Problems: Assessment/Plan Sepsis Respiratory failure Cardiopulmonary Arrest Hypotension, improved Acute decompensated diastolic congestive heart failure Pulmonary hypertension Preserved ejection fraction Tricuspid valve regurgitation Lung cancer SVT -Continue beta-belinda as heart rate and blood pressure permits. -Continue Lasix as blood pressure renal function permits. Maintain potassium above 4.0 and magnesium above 2.0, -ContinueMidodrine. Subjective 24 Hr Interval Summary Free Text/Dictation The patient with no change Exam/Review of Systems Vital Signs Vitals Vital Signs Date Time Temp Pulse Resp B/P Pulse Ox O2 Delivery O2 Flow Rate FiO2 12/11/16 08:25 103 12/11/16 07:39 100.0 20 95/61 97 12/11/16 07:10 35 Intake and Output 12/10/16 12/10/16 12/11/16 14:59 22:59 06:59 Intake Total 1120 ml 1020 ml 1120 ml Output Total 600 ml 800 ml 700 ml Balance 520 ml 220 ml 420 ml Results Result Diagram: 12/11/16 0610 12/09/16 0522 Results 24 hrs Laboratory Tests Test 12/11/16 06:10 12/11/16 06:49 White Blood Count 14.4 H Red Blood Count 3.19 #L Hemoglobin 8.4 #L Hematocrit 28.0 #L Mean Corpuscular Volume 87.8 Mean Corpuscular Hemoglobin 26.3 L Mean Corpuscular Hemoglobin Concent 30.0 L Red Cell Distribution Width 16.4 H Platelet Count 385 Mean Platelet Volume 10.0 Neutrophils % 74.3 Lymphocytes % 12.1 L Monocytes % 9.0 Eosinophils % 3.5 Basophils % 0.5 Nucleated Red Blood Cells % 0.0 Neutrophils # 10.7 H Lymphocytes # 1.7 Monocytes # 1.3 H Eosinophils # 0.5 Basophils # 0.1 Nucleated Red Blood Cells # 0.0 Lab Scanned Report BLOOD TRANSFUSION Medications Medications Current Medications Ondansetron HCl (Zofran Inj) 4 mg Q6 PRN IV NAUSEA AND/OR VOMITING Last administered on 12/09/16 13:19; Admin Dose 4 MG; Start 09/26/16 at 22:30 Collagenase (Santyl) 1 applic DAILY TOP Last administered on 12/10/16 09:30; Admin Dose 1 APPLIC; Start 09/27/16 at 09:00 Collagenase (Santyl) 1 applic PRN PRN TOP SOILED OR DISLODGED DRESSING; Start 09/27/16 at 05:00 Lansoprazole (Prevacid) 30 mg DAILY@06 GTB Last administered on 12/11/16 05:55 ; Admin Dose 30 MG; Start 09/28/16 at 06:00 Cromolyn Sodium (Nasalcrom) 1 spray QID NASAL Last administered on 12/10/16 21 :17; Admin Dose 1 SPRAY; Start 09/29/16 at 11:02 Phenol (Cepastat Lozenge) 1 lozenge Q2H PRN MT SORE THROAT Last administered on 11/02/16 01:02; Admin Dose 1 LOZENGE; Start 10/01/16 at 19:00 IV Flush (NS 10 ml) 10 ml PRN PRN IV IV PROTOCOL Last administered on 11/17/16 03:20; Admin Dose 10 ML; Start 10/02/16 at 19:00 Hydromorphone HCl (Dilaudid) 0.5 mg Q4H PRN IV PAIN Last administered on 13:20; Admin Dose 0.5 MG; Start 10/06/16 at 18:30 Potassium Chloride (Potassium Chloride Pwd/Soln) 20 meq DAILY GTB Last administered on 12/10/16 09:29; Admin Dose 20 MEQ; Start 10/30/16 at 12:00 Acetaminophen (Tylenol Liquid) 650 mg Q6H PRN PEG PAIN AND OR ELEVATED TEMP Last administered on 12/09/16 13:19; Admin Dose 650 MG; Start 11/16/16 at 20:04 Alprazolam (Xanax) 0.5 mg Q12H PRN PEG ANXIETY Last administered on 12/08/16 00:55; Admin Dose 0.5 MG; Start 11/16/16 at 20:30 Ascorbic Acid (Vitamin C) 500 mg BID PEG Last administered on 12/10/16 21:18; Admin Dose 500 MG; Start 11/16/16 at 21:00 Atorvastatin Calcium (Lipitor) 20 mg QHS PEG Last administered on 12/10/16 21: 18; Admin Dose 20 MG; Start 11/16/16 at 21:00 Diazepam (Valium) 10 mg DAILY PEG Last administered on 12/10/16 10:06; Admin Dose 10 MG; Start 11/17/16 at 09:00 Duloxetine HCl (Cymbalta) 20 mg DAILY PEG Last administered on 12/10/16 09:29 ; Admin Dose 20 MG; Start 11/17/16 at 09:00 Lactobacillus Acidophilus (Florajen3 Capsule) 1 each TID PEG Last administered on 12/10/16 21:17; Admin Dose 1 EACH; Start 11/16/16 at 21:00 Promethazine HCl/ Codeine (Phenergan/ Codeine) 10 ml BID PRN PEG COUGH Last administered on 11/30/16 09:36; Admin Dose 10 ML; Start 11/16/16 at 20:00 Zolpidem Tartrate (Ambien) 5 mg QHS PRN PEG INSOMNIA; Start 11/16/16 at 20:00 Docusate Sodium (Colace Liquid Cup) 100 mg Q12 PRN GTB CONSTIPATION; Start 11/16 at 20:00 Oxycodone HCl (Roxicodone) 10 mg Q4H PO Last administered on 12/11/16 05:55; Admin Dose 10 MG; Start 11/20/16 at 17:30 Midodrine (Proamatine) 2.5 mg TID@08,12,17 NGT Last administered on 12/10/16 17:34; Admin Dose 2.5 MG; Start 11/24/16 at 18:33 Furosemide (Lasix) 20 mg DAILY GTB Last administered on 12/09/16 10:08; Admin Dose 20 MG; Start 12/01/16 at 09:00 Metoprolol Tartrate 12.5 mg 12.5 mg BID PO Last administered on 12/10/16 21:19 ; Admin Dose 12.5 MG; Start 12/03/16 at 21:00 Vancomycin HCl (Vancocin) 100 ml @ 100 mls/hr Q12H IVPB Last administered on 05:55; Admin Dose 100 MLS/HR; Start 12/08/16 at 06:00 RALPH LUCAS MD Dec 11, 2016 08:37
[2016-12-11] MEDS: L ACIDOPHIL/B LACTIS/B LONGUM CAPSULE PEG SCH ×3 (08:53→21:21)
[2016-12-11] MEDS: MIDODRINE 2.5 MG TAB NGT SCH ×3 (08:53→18:09)
[2016-12-11] MEDS: FUROSEMIDE 20 MG TAB GTB SCH (08:53)
[2016-12-11] MEDS: DULOXETINE 20 MG CAP DR PEG SCH (08:53)
[2016-12-11] MEDS: METOPROLOL 25 MG TAB PO SCH ×2 (08:55→21:20)
[2016-12-11] MEDS: POTASSIUM CHLORIDE 20 MEQ POWDER FOR ORAL SOLN GTB SCH (08:56)
[2016-12-11] MEDS: ASCORBIC ACID 500 MG TAB PEG SCH ×2 (08:56→21:20)
[2016-12-11] MEDS: CROMOLYN 4% 26ML NAS INH NASAL SCH ×4 (08:56→21:21)
[2016-12-11] MEDS: COLLAGENASE 30 GM TUBE TOP SCH (09:00)
[2016-12-11] MEDS: DIAZEPAM 5 MG TAB PEG SCH (09:30)
[2016-12-11 09:56] LABS: CALCIUM 8.5 mg/dl (8.4-10.2); CREATININE 0.5 mg/dl (0.44-1.00); POTASSIUM 4.5 mmol/L (3.5-5.1)
--- NOTE | 2016-12-11 11:39 | PN ---
Date/Time of Note Date/Time of Note DATE: 12/11/16 TIME: 10:54 Assessment/Plan Lines/Catheters IV Catheter Type (from Nrsg): PICC Line Urinary Cath still in place: Yes Assessment/Plan Assessment/Plan 1. Multiple decubitus ulcers with debris. Sacrococcygeal ulcer s/p exc boris . wound culture 10/23: ACINETOBACTER BAUMANNII, ESCHERICHIA COLI (ESBL), PROTEUS MIRABILIS; on wound vac with approx 600cc drainage since last changed - Continue wound vac and local care - 6wk ABX course finished -Offload -Optimize nutrition via Gtube -Vitamin C 2. Leukocytosis: improving although slight temp of 100 overnight; staph bacteremia; repeat blood cultures on 12/07 negative; urine cultures negative; Decubitus ulcer as above -continue to monitor -s/p abx 3. 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 S/P cardiac arrest; now vent dependent with tube feedings 5. 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 Anemia: Normocytic anemia; 2/2 chronic disease + iron deficiencty vs infection; H/H improved - Transfused 2 units PRBC'S - Continue to monitor and transfuse as needed - Continue iron supplements 7. Acute on chronic diastolic heart failure -Judicious fluid management -Continue meds -Cardiac optimization 8. Hypotension with Hypertension history; improved -on midodrine 9. Chronic urinary retention with George 10. Depression. -Medical management 11. Hypothyroidism by history. -Synthroid 10. Chronic pain syndrome. Continue pain management. Patient seen and examined in collaboration with Dr. Alex Sinclair Subjective 24 Hr Interval Summary Subjective hx not possible: pt non-verbal (trached; able to communicate by nodding or shaking head ) Constitutional: no complaints Eyes: no complaints, No pain ENT: other, No pain (s/p tracheostomy) Respiratory: No cough, No pain, No shortness of breath Cardiovascular: No chest pain, No edema, No palpitations Gastrointestinal: other (tube feeding), passing stool, No constipation, No nausea, No vomiting Genitourinary: No dysuria, No hematuria Musculoskeletal: restricted range of motion Skin: No bruising, No pruritis, No rash Neurologic: No confusion, No dizziness Endocrine: No dry skin, No polydypsia, No polyuria Lymphatic: No adenopathy Psychological: nl mood/affect Exam/Review of Systems Vital Signs Vitals Vital Signs Date Time Temp Pulse Resp B/P Pulse Ox O2 Delivery O2 Flow Rate FiO2 12/11/16 09:00 85 20 99 35 12/11/16 07:39 100.0 95/61 Intake and Output 12/10/16 12/10/16 12/11/16 15:00 23:00 07:00 Intake Total 1120 ml 1020 ml 1120 ml Output Total 600 ml 800 ml 700 ml Balance 520 ml 220 ml 420 ml Exam Constitutional: alert, non-verbal (tracheostomy), oriented Psych: nl mood/affect Head: atraumatic, normocephalic Eyes: nl conjunctiva, nl sclera ENMT: nl external ears & nose Neck: other (s/p tracheostomy; trach site non-redenned/no drainage; healing well) Respiratory: diminished breath sounds Cardiovascular: regular rate and rhythm Gastrointestinal: non-tender, other (gtube site non-reddened/no drainage), soft Musculoskeletal: nl extremities to inspection Extremities: normal pulses Neurological: nl mental status, No nl speech (weak; trached) Skin: nl turgor, other (multiple ulcers) Results Result Diagram: 12/11/16 0610 12/11/16 0610 Results 24 hrs Laboratory Tests Test 12/11/16 06:10 12/11/16 06:49 White Blood Count 14.4 H Red Blood Count 3.19 #L Hemoglobin 8.4 #L Hematocrit 28.0 #L Mean Corpuscular Volume 87.8 Mean Corpuscular Hemoglobin 26.3 L Mean Corpuscular Hemoglobin Concent 30.0 L Red Cell Distribution Width 16.4 H Platelet Count 385 Mean Platelet Volume 10.0 Neutrophils % 74.3 Lymphocytes % 12.1 L Monocytes % 9.0 Eosinophils % 3.5 Basophils % 0.5 Nucleated Red Blood Cells % 0.0 Neutrophils # 10.7 H Lymphocytes # 1.7 Monocytes # 1.3 H Eosinophils # 0.5 Basophils # 0.1 Nucleated Red Blood Cells # 0.0 Sodium Level 133 L Potassium Level 4.5 Chloride Level 98 Carbon Dioxide Level 27 Anion Gap 13 Blood Urea Nitrogen 20 Creatinine 0.50 Glucose Level 101 Calcium Level 8.5 Lab Scanned Report BLOOD TRANSFUSION Medications Medications Current Medications Ondansetron HCl (Zofran Inj) 4 mg Q6 PRN IV NAUSEA AND/OR VOMITING Last administered on 12/09/16 13:19; Admin Dose 4 MG; Start 09/26/16 at 22:30 Collagenase (Santyl) 1 applic DAILY TOP Last administered on 12/10/16 09:30; Admin Dose 1 APPLIC; Start 09/27/16 at 09:00 Collagenase (Santyl) 1 applic PRN PRN TOP SOILED OR DISLODGED DRESSING; Start 09/27/16 at 05:00 Lansoprazole (Prevacid) 30 mg DAILY@06 GTB Last administered on 12/11/16 05:55 ; Admin Dose 30 MG; Start 09/28/16 at 06:00 Cromolyn Sodium (Nasalcrom) 1 spray QID NASAL Last administered on 12/11/16 08 :56; Admin Dose 1 SPRAY; Start 09/29/16 at 11:02 Phenol (Cepastat Lozenge) 1 lozenge Q2H PRN MT SORE THROAT Last administered on 11/02/16 01:02; Admin Dose 1 LOZENGE; Start 10/01/16 at 19:00 IV Flush (NS 10 ml) 10 ml PRN PRN IV IV PROTOCOL Last administered on 11/17/16 03:20; Admin Dose 10 ML; Start 10/02/16 at 19:00 Hydromorphone HCl (Dilaudid) 0.5 mg Q4H PRN IV PAIN Last administered on 13:20; Admin Dose 0.5 MG; Start 10/06/16 at 18:30 Potassium Chloride (Potassium Chloride Pwd/Soln) 20 meq DAILY GTB Last administered on 12/11/16 08:56; Admin Dose 20 MEQ; Start 10/30/16 at 12:00 Acetaminophen (Tylenol Liquid) 650 mg Q6H PRN PEG PAIN AND OR ELEVATED TEMP Last administered on 12/09/16 13:19; Admin Dose 650 MG; Start 11/16/16 at 20:04 Alprazolam (Xanax) 0.5 mg Q12H PRN PEG ANXIETY Last administered on 12/08/16 00:55; Admin Dose 0.5 MG; Start 11/16/16 at 20:30 Ascorbic Acid (Vitamin C) 500 mg BID PEG Last administered on 12/11/16 08:56; Admin Dose 500 MG; Start 11/16/16 at 21:00 Atorvastatin Calcium (Lipitor) 20 mg QHS PEG Last administered on 12/10/16 21: 18; Admin Dose 20 MG; Start 11/16/16 at 21:00 Diazepam (Valium) 10 mg DAILY PEG Last administered on 12/11/16 09:30; Admin Dose 10 MG; Start 11/17/16 at 09:00 Duloxetine HCl (Cymbalta) 20 mg DAILY PEG Last administered on 12/11/16 08:53 ; Admin Dose 20 MG; Start 11/17/16 at 09:00 Lactobacillus Acidophilus (Florajen3 Capsule) 1 each TID PEG Last administered on 12/11/16 08:53; Admin Dose 1 EACH; Start 11/16/16 at 21:00 Promethazine HCl/ Codeine (Phenergan/ Codeine) 10 ml BID PRN PEG COUGH Last administered on 11/30/16 09:36; Admin Dose 10 ML; Start 11/16/16 at 20:00 Zolpidem Tartrate (Ambien) 5 mg QHS PRN PEG INSOMNIA; Start 11/16/16 at 20:00 Docusate Sodium (Colace Liquid Cup) 100 mg Q12 PRN GTB CONSTIPATION; Start 11/16 at 20:00 Oxycodone HCl (Roxicodone) 10 mg Q4H PO Last administered on 12/11/16 08:55; Admin Dose 10 MG; Start 11/20/16 at 17:30 Midodrine (Proamatine) 2.5 mg TID@08,12,17 NGT Last administered on 12/11/16 08:53; Admin Dose 2.5 MG; Start 11/24/16 at 18:33 Furosemide (Lasix) 20 mg DAILY GTB Last administered on 12/11/16 08:53; Admin Dose 20 MG; Start 12/01/16 at 09:00 Metoprolol Tartrate 12.5 mg 12.5 mg BID PO Last administered on 12/11/16 08:55 ; Admin Dose 12.5 MG; Start 12/03/16 at 21:00 Vancomycin HCl (Vancocin) 100 ml @ 100 mls/hr Q12H IVPB Last administered on t 05:55; Admin Dose 100 MLS/HR; Start 12/08/16 at 06:00 JERRY SAHU NP Dec 11, 2016 11:17
--- NOTE | 2016-12-11 13:17 | CONS ---
Date/Time of Note Date/Time of Note DATE: 12/11/16 TIME: 13:16 Assessment/Plan Assessment/Plan Chief Complaint/Hosp Course SUBJECTIVE: Awake, looks comfortable, no fevers INDWELLINGS: Trach, PEG, George, PICC line. Micro: Bld cx 12/06 + Staph sp Abx: Vancomycin PHYSICAL EXAMINATION: GENERAL: Fragile cachectic elderly woman who is in no distress. HEENT: Head atraumatic, normocephalic. Sclerae anicteric. Buccal mucosa dry. NECK: Supple. Tracheostomy present. CHEST: Rise symmetrical. Breath sounds diminished to bases. HEART: S1, S2. ABDOMEN: Soft, bowel tones present. EXTREMITIES: With trace dependent edema. ASSESSMENT: 1. Staph bacteremia, poss 2 to infected PICC 2. Status post septic shock, urinary tract infection, and pneumonia. 3. Chronic respiratory failure. 4. Lung cancer. 5. History of Clostridium difficile colitis. 6. Unstageable sacral decubitus, status post debridement with wound VAC, completed 6 weeks antibiotics. 7. Cachexia. 7. Dysphagia, status post percutaneous endoscopic gastrostomy. PLAN: Clinically stable, repeat bld cx negative, Vanco restarted for bacteremia, consider PICC change, ok dc from ID standpoint [facility] staff Problems: Consultation Date/Type/Reason Admit Date/Time Sep 26, 2016 at 20:07 Type of Consultation: id Referring Provider: DRE LOBATO MD Exam/Review of Systems Vital Signs Vitals Vital Signs Date Time Temp Pulse Resp B/P Pulse Ox O2 Delivery O2 Flow Rate FiO2 12/11/16 12:29 84 12/11/16 11:49 99.8 20 96/55 98 12/11/16 11:13 35 Intake and Output 12/10/16 12/10/16 12/11/16 15:00 23:00 07:00 Intake Total 1120 ml 1020 ml 1120 ml Output Total 600 ml 800 ml 700 ml Balance 520 ml 220 ml 420 ml Results Result Diagram: 12/11/16 0610 12/11/16 0610 Results 24 hrs Laboratory Tests Test 12/11/16 06:10 12/11/16 06:49 White Blood Count 14.4 H Red Blood Count 3.19 #L Hemoglobin 8.4 #L Hematocrit 28.0 #L Mean Corpuscular Volume 87.8 Mean Corpuscular Hemoglobin 26.3 L Mean Corpuscular Hemoglobin Concent 30.0 L Red Cell Distribution Width 16.4 H Platelet Count 385 Mean Platelet Volume 10.0 Neutrophils % 74.3 Lymphocytes % 12.1 L Monocytes % 9.0 Eosinophils % 3.5 Basophils % 0.5 Nucleated Red Blood Cells % 0.0 Neutrophils # 10.7 H Lymphocytes # 1.7 Monocytes # 1.3 H Eosinophils # 0.5 Basophils # 0.1 Nucleated Red Blood Cells # 0.0 Sodium Level 133 L Potassium Level 4.5 Chloride Level 98 Carbon Dioxide Level 27 Anion Gap 13 Blood Urea Nitrogen 20 Creatinine 0.50 Glucose Level 101 Calcium Level 8.5 Lab Scanned Report BLOOD TRANSFUSION Medications Medications Current Medications Ondansetron HCl (Zofran Inj) 4 mg Q6 PRN IV NAUSEA AND/OR VOMITING Last administered on 12/09/16 13:19; Admin Dose 4 MG; Start 09/26/16 at 22:30 Collagenase (Santyl) 1 applic DAILY TOP Last administered on 12/10/16 09:30; Admin Dose 1 APPLIC; Start 09/27/16 at 09:00 Collagenase (Santyl) 1 applic PRN PRN TOP SOILED OR DISLODGED DRESSING; Start 09/27/16 at 05:00 Lansoprazole (Prevacid) 30 mg DAILY@06 GTB Last administered on 12/11/16 05:55 ; Admin Dose 30 MG; Start 09/28/16 at 06:00 Cromolyn Sodium (Nasalcrom) 1 spray QID NASAL Last administered on 12/11/16 12 :48; Admin Dose 1 SPRAY; Start 09/29/16 at 11:02 Phenol (Cepastat Lozenge) 1 lozenge Q2H PRN MT SORE THROAT Last administered on 11/02/16 01:02; Admin Dose 1 LOZENGE; Start 10/01/16 at 19:00 IV Flush (NS 10 ml) 10 ml PRN PRN IV IV PROTOCOL Last administered on 11/17/16 03:20; Admin Dose 10 ML; Start 10/02/16 at 19:00 Hydromorphone HCl (Dilaudid) 0.5 mg Q4H PRN IV PAIN Last administered on 13:20; Admin Dose 0.5 MG; Start 10/06/16 at 18:30 Potassium Chloride (Potassium Chloride Pwd/Soln) 20 meq DAILY GTB Last administered on 12/11/16 08:56; Admin Dose 20 MEQ; Start 10/30/16 at 12:00 Acetaminophen (Tylenol Liquid) 650 mg Q6H PRN PEG PAIN AND OR ELEVATED TEMP Last administered on 12/09/16 13:19; Admin Dose 650 MG; Start 11/16/16 at 20:04 Alprazolam (Xanax) 0.5 mg Q12H PRN PEG ANXIETY Last administered on 12/08/16 00:55; Admin Dose 0.5 MG; Start 11/16/16 at 20:30 Ascorbic Acid (Vitamin C) 500 mg BID PEG Last administered on 12/11/16 08:56; Admin Dose 500 MG; Start 11/16/16 at 21:00 Atorvastatin Calcium (Lipitor) 20 mg QHS PEG Last administered on 12/10/16 21: 18; Admin Dose 20 MG; Start 11/16/16 at 21:00 Diazepam (Valium) 10 mg DAILY PEG Last administered on 12/11/16 09:30; Admin Dose 10 MG; Start 11/17/16 at 09:00 Duloxetine HCl (Cymbalta) 20 mg DAILY PEG Last administered on 12/11/16 08:53 ; Admin Dose 20 MG; Start 11/17/16 at 09:00 Lactobacillus Acidophilus (Florajen3 Capsule) 1 each TID PEG Last administered on 12/11/16 12:48; Admin Dose 1 EACH; Start 11/16/16 at 21:00 Promethazine HCl/ Codeine (Phenergan/ Codeine) 10 ml BID PRN PEG COUGH Last administered on 11/30/16 09:36; Admin Dose 10 ML; Start 11/16/16 at 20:00 Zolpidem Tartrate (Ambien) 5 mg QHS PRN PEG INSOMNIA; Start 11/16/16 at 20:00 Docusate Sodium (Colace Liquid Cup) 100 mg Q12 PRN GTB CONSTIPATION; Start 11/16 at 20:00 Oxycodone HCl (Roxicodone) 10 mg Q4H PO Last administered on 12/11/16 08:55; Admin Dose 10 MG; Start 11/20/16 at 17:30 Midodrine (Proamatine) 2.5 mg TID@,, NGT Last administered on 12/11/16 12:48; Admin Dose 2.5 MG; Start 11/24/16 at 18:33 Furosemide (Lasix) 20 mg DAILY GTB Last administered on 12/11/16 08:53; Admin Dose 20 MG; Start 12/01/16 at 09:00 Metoprolol Tartrate 12.5 mg 12.5 mg BID PO Last administered on 12/11/16 08:55 ; Admin Dose 12.5 MG; Start 12/03/16 at 21:00 Vancomycin HCl (Vancocin) 100 ml @ 100 mls/hr Q12H IVPB Last administered on 05:55; Admin Dose 100 MLS/HR; Start 12/08/16 at 06:00 RUBIN MAYEN NP Dec 11, 2016 13:17
--- NOTE | 2016-12-11 17:51 | CONS ---
Date/Time of Note Date/Time of Note DATE: 12/11/16 TIME: 17:50 Assessment/Plan Assessment/Plan Additional Assessment/Plan 1. acute on chronic resp failure intubated on ventilator- not able to wean off s/p Tracheostomy 2. PEA s/p resuscitation 3. Hyponatremia multifactorial 4. Pneumonia. 3. Lung cancer. 4. History of Clostridium difficile colitis and recurrent urinary tract infection. 5. Unstageable sacral wound, status post debridement with wound VAC application. PLAN: conitnue IV abx, ID following, S/p Tracheostomy making good urine Na 133, Cr normal will follow up Consultation Date/Type/Reason Admit Date/Time Sep 26, 2016 at 20:07 Type of Consultation: NEPHROLOGY Referring Provider: DRE LOBATO MD 24 HR Interval Summary Free Text/Dictation remained stable on telemetry floor, BP stable, afebrile Exam/Review of Systems Vital Signs Vitals Vital Signs Date Time Temp Pulse Resp B/P Pulse Ox O2 Delivery O2 Flow Rate FiO2 12/11/16 17:10 95 21 96 35 12/11/16 15:05 98.9 99/62 Intake and Output 12/10/16 12/10/16 12/11/16 15:00 23:00 07:00 Intake Total 1120 ml 1020 ml 1120 ml Output Total 600 ml 800 ml 700 ml Balance 520 ml 220 ml 420 ml Results Result Diagram: 12/11/16 0610 12/11/16 0610 Results 24 hrs Laboratory Tests Test 12/11/16 06:10 12/11/16 06:49 White Blood Count 14.4 H Red Blood Count 3.19 #L Hemoglobin 8.4 #L Hematocrit 28.0 #L Mean Corpuscular Volume 87.8 Mean Corpuscular Hemoglobin 26.3 L Mean Corpuscular Hemoglobin Concent 30.0 L Red Cell Distribution Width 16.4 H Platelet Count 385 Mean Platelet Volume 10.0 Neutrophils % 74.3 Lymphocytes % 12.1 L Monocytes % 9.0 Eosinophils % 3.5 Basophils % 0.5 Nucleated Red Blood Cells % 0.0 Neutrophils # 10.7 H Lymphocytes # 1.7 Monocytes # 1.3 H Eosinophils # 0.5 Basophils # 0.1 Nucleated Red Blood Cells # 0.0 Sodium Level 133 L Potassium Level 4.5 Chloride Level 98 Carbon Dioxide Level 27 Anion Gap 13 Blood Urea Nitrogen 20 Creatinine 0.50 Glucose Level 101 Calcium Level 8.5 Lab Scanned Report BLOOD TRANSFUSION Medications Medications Current Medications Ondansetron HCl (Zofran Inj) 4 mg Q6 PRN IV NAUSEA AND/OR VOMITING Last administered on 12/09/16 13:19; Admin Dose 4 MG; Start 09/26/16 at 22:30 Collagenase (Santyl) 1 applic DAILY TOP Last administered on 12/10/16 09:30; Admin Dose 1 APPLIC; Start 09/27/16 at 09:00 Collagenase (Santyl) 1 applic PRN PRN TOP SOILED OR DISLODGED DRESSING; Start 09/27/16 at 05:00 Lansoprazole (Prevacid) 30 mg DAILY@06 GTB Last administered on 12/11/16 05:55 ; Admin Dose 30 MG; Start 09/28/16 at 06:00 Cromolyn Sodium (Nasalcrom) 1 spray QID NASAL Last administered on 12/11/16 12 :48; Admin Dose 1 SPRAY; Start 09/29/16 at 11:02 Phenol (Cepastat Lozenge) 1 lozenge Q2H PRN MT SORE THROAT Last administered on 11/02/16 01:02; Admin Dose 1 LOZENGE; Start 10/01/16 at 19:00 IV Flush (NS 10 ml) 10 ml PRN PRN IV IV PROTOCOL Last administered on 11/17/16 03:20; Admin Dose 10 ML; Start 10/02/16 at 19:00 Hydromorphone HCl (Dilaudid) 0.5 mg Q4H PRN IV PAIN Last administered on 13:20; Admin Dose 0.5 MG; Start 10/06/16 at 18:30 Potassium Chloride (Potassium Chloride Pwd/Soln) 20 meq DAILY GTB Last administered on 12/11/16 08:56; Admin Dose 20 MEQ; Start 10/30/16 at 12:00 Acetaminophen (Tylenol Liquid) 650 mg Q6H PRN PEG PAIN AND OR ELEVATED TEMP Last administered on 12/09/16 13:19; Admin Dose 650 MG; Start 11/16/16 at 20:04 Alprazolam (Xanax) 0.5 mg Q12H PRN PEG ANXIETY Last administered on 12/08/16 00:55; Admin Dose 0.5 MG; Start 11/16/16 at 20:30 Ascorbic Acid (Vitamin C) 500 mg BID PEG Last administered on 12/11/16 08:56; Admin Dose 500 MG; Start 11/16/16 at 21:00 Atorvastatin Calcium (Lipitor) 20 mg QHS PEG Last administered on 12/10/16 21: 18; Admin Dose 20 MG; Start 11/16/16 at 21:00 Diazepam (Valium) 10 mg DAILY PEG Last administered on 12/11/16 09:30; Admin Dose 10 MG; Start 11/17/16 at 09:00 Duloxetine HCl (Cymbalta) 20 mg DAILY PEG Last administered on 12/11/16 08:53 ; Admin Dose 20 MG; Start 11/17/16 at 09:00 Lactobacillus Acidophilus (Florajen3 Capsule) 1 each TID PEG Last administered on 12/11/16 12:48; Admin Dose 1 EACH; Start 11/16/16 at 21:00 Promethazine HCl/ Codeine (Phenergan/ Codeine) 10 ml BID PRN PEG COUGH Last administered on 11/30/16 09:36; Admin Dose 10 ML; Start 11/16/16 at 20:00 Zolpidem Tartrate (Ambien) 5 mg QHS PRN PEG INSOMNIA; Start 11/16/16 at 20:00 Docusate Sodium (Colace Liquid Cup) 100 mg Q12 PRN GTB CONSTIPATION; Start 11/16 at 20:00 Oxycodone HCl (Roxicodone) 10 mg Q4H PO Last administered on 12/11/16 14:40; Admin Dose 10 MG; Start 11/20/16 at 17:30 Midodrine (Proamatine) 2.5 mg TID@,,17 NGT Last administered on 12/11/16 12:48; Admin Dose 2.5 MG; Start 11/24/16 at 18:33 Furosemide (Lasix) 20 mg DAILY GTB Last administered on 12/11/16 08:53; Admin Dose 20 MG; Start 12/01/16 at 09:00 Metoprolol Tartrate 12.5 mg 12.5 mg BID PO Last administered on 12/11/16 08:55 ; Admin Dose 12.5 MG; Start 12/03/16 at 21:00 Vancomycin HCl (Vancocin) 100 ml @ 100 mls/hr Q12H IVPB Last administered on t 05:55; Admin Dose 100 MLS/HR; Start 12/08/16 at 06:00 DIONNE SAUCEDA MD Dec 11, 2016 17:51
--- NOTE | 2016-12-11 18:11 | PN ---
Date/Time of Note Date/Time of Note DATE: 12/11/16 TIME: 18:09 Assessment/Plan VTE Prophylaxis VTE Prophylaxis Intervention: SCD's Lines/Catheters IV C[facility]ter Type (from [facility]): PICC Line Central line still needed: Yes Urinary Cath still in place: Yes Reason Cath still needed: urinary retention Assessment/Plan Chief Complaint/Hosp Course Patient needs PICC line change, patient continues to have low-grade fever. ASSESSMENT AND PLAN: - Recurrent sepsis with Staphylococcus bacteremia, continue vancomycin. Dr. Coleman is following an infection disease consultation. - Status post tracheostomy by Dr. White, ENT on 11/28. - Status post cardiopulmonary arrest. - Acute respiratory failure. Continue breathing treatment, oxygen supply supplementation and bronchodilators. Dr. Lopez is following in pulmonology consultation. - Left lung squamous carcinoma. The patient is not a candidate for chemotherapy. Dr. Calvo is following in oncology consultation. - Chronic obstructive pulmonary disease. Patient with long history of tobacco use. - Anemia of chronic disease. Continue to monitor hemoglobin and hematocrit. - Dysphagia with G-tube. Continue G-tube feeding, monitor residual. Continue aspiration precautions. - Hypothyroidism. Continue Synthroid. - Chronic pain. - Failure to thrive. Continue sequential compression device for deep venous thrombosis prophylaxis and Prevacid for peptic ulcer disease prophylaxis. Further recommendations based on clinical course. Plan of care discussed with Dr. Dozier. Problems: Exam/Review of Systems Vital Signs Vitals Vital Signs Date Time Temp Pulse Resp B/P Pulse Ox O2 Delivery O2 Flow Rate FiO2 12/11/16 17:10 95 21 96 35 12/11/16 15:05 98.9 99/62 Intake and Output 12/10/16 12/10/16 12/11/16 15:00 23:00 07:00 Intake Total 1120 ml 1020 ml 1120 ml Output Total 600 ml 800 ml 700 ml Balance 520 ml 220 ml 420 ml Exam Constitutional: frail Head: normocephalic ENMT: other (tracheostomy) Respiratory: diminished breath sounds Cardiovascular: nl pulses Gastrointestinal: non-tender, other (G-tube), soft Extremities: normal pulses Skin: other (Multiple wounds) Results Result Diagram: 12/11/16 0610 12/11/16 0610 Results 24 hrs Laboratory Tests Test 12/11/16 06:10 12/11/16 06:49 White Blood Count 14.4 H Red Blood Count 3.19 #L Hemoglobin 8.4 #L Hematocrit 28.0 #L Mean Corpuscular Volume 87.8 Mean Corpuscular Hemoglobin 26.3 L Mean Corpuscular Hemoglobin Concent 30.0 L Red Cell Distribution Width 16.4 H Platelet Count 385 Mean Platelet Volume 10.0 Neutrophils % 74.3 Lymphocytes % 12.1 L Monocytes % 9.0 Eosinophils % 3.5 Basophils % 0.5 Nucleated Red Blood Cells % 0.0 Neutrophils # 10.7 H Lymphocytes # 1.7 Monocytes # 1.3 H Eosinophils # 0.5 Basophils # 0.1 Nucleated Red Blood Cells # 0.0 Sodium Level 133 L Potassium Level 4.5 Chloride Level 98 Carbon Dioxide Level 27 Anion Gap 13 Blood Urea Nitrogen 20 Creatinine 0.50 Glucose Level 101 Calcium Level 8.5 Lab Scanned Report BLOOD TRANSFUSION Medications Medications Current Medications Ondansetron HCl (Zofran Inj) 4 mg Q6 PRN IV NAUSEA AND/OR VOMITING Last administered on 12/09/16 13:19; Admin Dose 4 MG; Start 09/26/16 at 22:30 Collagenase (Santyl) 1 applic DAILY TOP Last administered on 12/10/16 09:30; Admin Dose 1 APPLIC; Start 09/27/16 at 09:00 Collagenase (Santyl) 1 applic PRN PRN TOP SOILED OR DISLODGED DRESSING; Start 09/27/16 at 05:00 Lansoprazole (Prevacid) 30 mg DAILY@06 GTB Last administered on 12/11/16 05:55 ; Admin Dose 30 MG; Start 09/28/16 at 06:00 Cromolyn Sodium (Nasalcrom) 1 spray QID NASAL Last administered on 12/11/16 12 :48; Admin Dose 1 SPRAY; Start 09/29/16 at 11:02 Phenol (Cepastat Lozenge) 1 lozenge Q2H PRN MT SORE THROAT Last administered on 11/02/16 01:02; Admin Dose 1 LOZENGE; Start 10/01/16 at 19:00 IV Flush (NS 10 ml) 10 ml PRN PRN IV IV PROTOCOL Last administered on 11/17/16 03:20; Admin Dose 10 ML; Start 10/02/16 at 19:00 Hydromorphone HCl (Dilaudid) 0.5 mg Q4H PRN IV PAIN Last administered on 13:20; Admin Dose 0.5 MG; Start 10/06/16 at 18:30 Potassium Chloride (Potassium Chloride Pwd/Soln) 20 meq DAILY GTB Last administered on 12/11/16 08:56; Admin Dose 20 MEQ; Start 10/30/16 at 12:00 Acetaminophen (Tylenol Liquid) 650 mg Q6H PRN PEG PAIN AND OR ELEVATED TEMP Last administered on 12/09/16 13:19; Admin Dose 650 MG; Start 11/16/16 at 20:04 Alprazolam (Xanax) 0.5 mg Q12H PRN PEG ANXIETY Last administered on 12/08/16 00:55; Admin Dose 0.5 MG; Start 11/16/16 at 20:30 Ascorbic Acid (Vitamin C) 500 mg BID PEG Last administered on 12/11/16 08:56; Admin Dose 500 MG; Start 11/16/16 at 21:00 Atorvastatin Calcium (Lipitor) 20 mg QHS PEG Last administered on 12/10/16 21: 18; Admin Dose 20 MG; Start 11/16/16 at 21:00 Diazepam (Valium) 10 mg DAILY PEG Last administered on 12/11/16 09:30; Admin Dose 10 MG; Start 11/17/16 at 09:00 Duloxetine HCl (Cymbalta) 20 mg DAILY PEG Last administered on 12/11/16 08:53 ; Admin Dose 20 MG; Start 11/17/16 at 09:00 Lactobacillus Acidophilus (Florajen3 Capsule) 1 each TID PEG Last administered on 12/11/16 12:48; Admin Dose 1 EACH; Start 11/16/16 at 21:00 Promethazine HCl/ Codeine (Phenergan/ Codeine) 10 ml BID PRN PEG COUGH Last administered on 11/30/16 09:36; Admin Dose 10 ML; Start 11/16/16 at 20:00 Zolpidem Tartrate (Ambien) 5 mg QHS PRN PEG INSOMNIA; Start 11/16/16 at 20:00 Docusate Sodium (Colace Liquid Cup) 100 mg Q12 PRN GTB CONSTIPATION; Start 11/16 at 20:00 Oxycodone HCl (Roxicodone) 10 mg Q4H PO Last administered on 12/11/16 14:40; Admin Dose 10 MG; Start 11/20/16 at 17:30 Midodrine (Proamatine) 2.5 mg TID@,,17 NGT Last administered on 12/11/16 12:48; Admin Dose 2.5 MG; Start 11/24/16 at 18:33 Furosemide (Lasix) 20 mg DAILY GTB Last administered on 12/11/16 08:53; Admin Dose 20 MG; Start 12/01/16 at 09:00 Metoprolol Tartrate 12.5 mg 12.5 mg BID PO Last administered on 12/11/16 08:55 ; Admin Dose 12.5 MG; Start 12/03/16 at 21:00 Vancomycin HCl (Vancocin) 100 ml @ 100 mls/hr Q12H IVPB Last administered on 05:55; Admin Dose 100 MLS/HR; Start 12/08/16 at 06:00 REBECCA ISLAS Dec 11, 2016 18:11
[2016-12-11] MEDS: ATORVASTATIN 20 MG TAB PEG SCH (21:20)
[2016-12-12] VITALS (23 sets, daily range): BP systolic 92–163; BP diastolic 52–91; PULSE 78–110; RESP 15–26
[2016-12-12] MEDS: oxyCODONE 5 MG TAB PO SCH ×6 (01:43→21:39)
[2016-12-12] MEDS: LANSOPRAZOLE 30 MG CAP GTB SCH (05:20)
[2016-12-12] MEDS: LEVOTHYROXINE 125 MCG TAB PEG SCH (05:20)
[2016-12-12] MEDS: VANCOMYCIN 500MG/NS (PMX) 100 ML IVPB SCH ×2 (05:21→18:11)
[2016-12-12 06:51] LABS: ADD SCAN DIFF NO
[2016-12-12 06:59] LABS: BASOPHIL # 0.1 10^3/ul (0.0-0.1); BASOPHILS % 0.6 % (0.0-2.0); EOSINOPHILS # 0.4 10^3/ul (0.0-0.5); EOSINOPHILS % 2.8 % (0.0-7.0); HEMATOCRIT 28.2 % (37.0-47.0); HEMOGLOBIN 8.4 g/dl (12.0-16.0); LYMPHOCYTES # 1.7 10^3/ul (0.8-2.9); LYMPHOCYTES % 11.5 % (15.0-51.0); MEAN CORPUSCULAR HEMOGLOBIN 26.3 pg (29.0-33.0); MEAN CORPUSCULAR HGB CONC 29.8 g/dl (32.0-37.0); MEAN CORPUSCULAR VOLUME 88.1 fl (82.0-101.0); MEAN PLATELET VOLUME 9.7 fl (7.4-10.4); MONOCYTE # 1.4 10^3/ul (0.3-0.9); MONOCYTES % 9.5 % (0.0-11.0); NEUTROPHIL # 10.8 10^3/ul (1.6-7.5); PLATELET COUNT 408 10^3/UL (140-415); WHITE BLOOD COUNT 14.4 10^3/ul (4.8-10.8)
[2016-12-12] MEDS: L ACIDOPHIL/B LACTIS/B LONGUM CAPSULE PEG SCH ×3 (09:00→21:38)
[2016-12-12] MEDS: CROMOLYN 4% 26ML NAS INH NASAL SCH ×4 (09:03→21:39)
[2016-12-12] MEDS: POTASSIUM CHLORIDE 20 MEQ POWDER FOR ORAL SOLN GTB SCH (09:04)
[2016-12-12] MEDS: FUROSEMIDE 20 MG TAB GTB SCH (09:04)
[2016-12-12] MEDS: DULOXETINE 20 MG CAP DR PEG SCH (09:05)
[2016-12-12] MEDS: DIAZEPAM 5 MG TAB PEG SCH (09:05)
[2016-12-12] MEDS: COLLAGENASE 30 GM TUBE TOP SCH (09:06)
[2016-12-12] MEDS: ASCORBIC ACID 500 MG TAB PEG SCH ×2 (09:06→21:39)
[2016-12-12] MEDS: METOPROLOL 25 MG TAB PO SCH ×2 (09:13→21:44)
[2016-12-12] MEDS: MIDODRINE 2.5 MG TAB NGT SCH ×3 (10:00→18:11)
[2016-12-12] MEDS ORDERED: LIDOCAINE 1% (MPF) 5 ML VIAL SC ONE (11:30)
--- NOTE | 2016-12-12 12:34 | PN ---
Date/Time of Note Date/Time of Note DATE: 12/12/16 TIME: 12:26 Assessment/Plan Lines/Catheters IV Catheter Type (from Nrsg): Peripheral IV George in Place (from Nrsg): Yes Assessment/Plan Assessment/Plan Assessment/Plan 1. Multiple decubitus ulcers with debris. Sacrococcygeal ulcer s/p exc boris . wound culture 10/23: ACINETOBACTER BAUMANNII, ESCHERICHIA COLI (ESBL), PROTEUS MIRABILIS; on wound vac; pictures reviewed: good wound healing progress no debridement needed at this time - Continue wound vac and local care - 6wk ABX course finished -Offload -Optimize nutrition via Gtube -Vitamin C 2. Leukocytosis: Unchanged, however afebrile x 24 hours; staph bacteremia; repeat blood cultures on 12/07 negative; urine cultures negative; Decubitus ulcer as above -continue to monitor -s/p abx 3. 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 S/P cardiac arrest; now vent dependent with tube feedings 5. 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 Anemia: Normocytic anemia; 2/2 chronic disease + iron deficiencty vs infection; H/H improved - Transfused 2 units PRBC'S - Continue to monitor and transfuse as needed - Continue iron supplements 7. Acute on chronic diastolic heart failure -Judicious fluid management -Continue meds -Cardiac optimization 8. Hypotension with Hypertension history; improved -on midodrine 9. Chronic urinary retention with George 10. Depression. -Medical management 11. Hypothyroidism by history. -Synthroid 10. Chronic pain syndrome. Continue pain management. Patient seen and examined in collaboration with Dr. Alex Sinclair Subjective 24 Hr Interval Summary Subjective hx not possible: pt non-verbal (able to commuicate nonverbally, tracks and responds with head nodding/shaking and gesturing) Constitutional: no complaints (chest pain, headaches, nausea/vomiting/diarrhea , dizziness or sz), No chills, No cough (vent), No febrile, No shortness of breath Pain Control: well controlled Exam/Review of Systems Vital Signs Vitals Vital Signs Date Time Temp Pulse Resp B/P Pulse Ox O2 Delivery O2 Flow Rate FiO2 12/12/16 11:19 98.6 84 17 93/60 95 12/12/16 11:15 35 Intake and Output 12/11/16 12/11/16 12/12/16 15:00 23:00 07:00 Intake Total 1120 ml 1120 ml Output Total 1700 ml 1100 ml Balance -580 ml 20 ml Exam Constitutional: alert, non-verbal (trached), oriented, No distress Psych: nl mood/affect, no complaints Head: atraumatic, normocephalic Eyes: nl conjunctiva, nl lids, nl sclera ENMT: mucosa pink and moist, nl external ears & nose, nl lips & teeth Neck: non-tender, other (tracheostomy, non-reddened, no drainage noted), supple Respiratory: diminished breath sounds Cardiovascular: nl pulses, regular rate and rhythm Gastrointestinal: non-tender, other (gtube, site non-tender, non-reddened), soft Musculoskeletal: nl extremities to inspection Extremities: normal pulses Neurological: nl mental status, No nl strength (gen weakness) Skin: No rash or lesions Results Result Diagram: 12/12/16 0522 12/11/16 0610 JERRY SAHU NP Dec 12, 2016 12:34
--- NOTE | 2016-12-12 13:32 | CONS ---
Date/Time of Note Date/Time of Note DATE: 12/12/16 TIME: 13:31 Assessment/Plan Assessment/Plan Chief Complaint/Hosp Course SUBJECTIVE: Awake, looks comfortable, no fevers INDWELLINGS: Trach, PEG, George Micro: Bld cx 12/06 + Staph sp Abx: Vancomycin PHYSICAL EXAMINATION: GENERAL: Fragile cachectic elderly woman who is in no distress. HEENT: Head atraumatic, normocephalic. Sclerae anicteric. Buccal mucosa dry. NECK: Supple. Tracheostomy present. CHEST: Rise symmetrical. Breath sounds diminished to bases. HEART: S1, S2. ABDOMEN: Soft, bowel tones present. EXTREMITIES: With trace dependent edema. ASSESSMENT: 1. Staph bacteremia, s/p PICC dc'd 2. Status post septic shock, urinary tract infection, and pneumonia. 3. Chronic respiratory failure. 4. Lung cancer. 5. History of Clostridium difficile colitis. 6. Unstageable sacral decubitus, status post debridement with wound VAC, completed 6 weeks antibiotics. 7. Cachexia. 7. Dysphagia, status post percutaneous endoscopic gastrostomy. PLAN: Clinically stable, repeat bld cx negative, continue Vanco for 10 more days for bacteremia DW staff Problems: Consultation Date/Type/Reason Admit Date/Time Sep 26, 2016 at 20:07 Type of Consultation: id Referring Provider: DRE LOBATO MD Exam/Review of Systems Vital Signs Vitals Vital Signs Date Time Temp Pulse Resp B/P Pulse Ox O2 Delivery O2 Flow Rate FiO2 12/12/16 12:29 83 12/12/16 11:19 98.6 17 93/60 95 12/12/16 11:15 35 Intake and Output 12/11/16 12/11/16 12/12/16 15:00 23:00 07:00 Intake Total 1120 ml 1120 ml Output Total 1700 ml 1100 ml Balance -580 ml 20 ml Results Result Diagram: 12/12/16 0522 12/11/16 0610 Results 24 hrs Laboratory Tests Test 12/12/16 05:22 White Blood Count 14.4 H Red Blood Count 3.20 L Hemoglobin 8.4 L Hematocrit 28.2 L Mean Corpuscular Volume 88.1 Mean Corpuscular Hemoglobin 26.3 L Mean Corpuscular Hemoglobin Concent 29.8 L Red Cell Distribution Width 16.0 H Platelet Count 408 Mean Platelet Volume 9.7 Neutrophils % 75.0 Lymphocytes % 11.5 L Monocytes % 9.5 Eosinophils % 2.8 Basophils % 0.6 Nucleated Red Blood Cells % 0.0 Neutrophils # 10.8 H Lymphocytes # 1.7 Monocytes # 1.4 H Eosinophils # 0.4 Basophils # 0.1 Nucleated Red Blood Cells # 0.0 Medications Medications Current Medications Ondansetron HCl (Zofran Inj) 4 mg Q6 PRN IV NAUSEA AND/OR VOMITING Last administered on 12/09/16 13:19; Admin Dose 4 MG; Start 09/26/16 at 22:30 Collagenase (Santyl) 1 applic DAILY TOP Last administered on 12/12/16 09:06; Admin Dose 1 APPLIC; Start 09/27/16 at 09:00 Collagenase (Santyl) 1 applic PRN PRN TOP SOILED OR DISLODGED DRESSING; Start 09/27/16 at 05:00 Lansoprazole (Prevacid) 30 mg DAILY@06 GTB Last administered on 12/12/16 05:20 ; Admin Dose 30 MG; Start 09/28/16 at 06:00 Cromolyn Sodium (Nasalcrom) 1 spray QID NASAL Last administered on 12/12/16 09 :03; Admin Dose 1 SPRAY; Start 09/29/16 at 11:02 Phenol (Cepastat Lozenge) 1 lozenge Q2H PRN MT SORE THROAT Last administered on 11/02/16 01:02; Admin Dose 1 LOZENGE; Start 10/01/16 at 19:00 IV Flush (NS 10 ml) 10 ml PRN PRN IV IV PROTOCOL Last administered on 11/17/16 03:20; Admin Dose 10 ML; Start 10/02/16 at 19:00 Hydromorphone HCl (Dilaudid) 0.5 mg Q4H PRN IV PAIN Last administered on 13:20; Admin Dose 0.5 MG; Start 10/06/16 at 18:30 Potassium Chloride (Potassium Chloride Pwd/Soln) 20 meq DAILY GTB Last administered on 12/12/16 09:04; Admin Dose 20 MEQ; Start 10/30/16 at 12:00 Acetaminophen (Tylenol Liquid) 650 mg Q6H PRN PEG PAIN AND OR ELEVATED TEMP Last administered on 12/09/16 13:19; Admin Dose 650 MG; Start 11/16/16 at 20:04 Alprazolam (Xanax) 0.5 mg Q12H PRN PEG ANXIETY Last administered on 12/08/16 00:55; Admin Dose 0.5 MG; Start 11/16/16 at 20:30 Ascorbic Acid (Vitamin C) 500 mg BID PEG Last administered on 12/12/16 09:06; Admin Dose 500 MG; Start 11/16/16 at 21:00 Atorvastatin Calcium (Lipitor) 20 mg QHS PEG Last administered on 12/11/16 21: 20; Admin Dose 20 MG; Start 11/16/16 at 21:00 Diazepam (Valium) 10 mg DAILY PEG Last administered on 12/12/16 09:05; Admin Dose 10 MG; Start 11/17/16 at 09:00 Duloxetine HCl (Cymbalta) 20 mg DAILY PEG Last administered on 12/12/16 09:05 ; Admin Dose 20 MG; Start 11/17/16 at 09:00 Lactobacillus Acidophilus (Florajen3 Capsule) 1 each TID PEG Last administered on 12/11/16 21:21; Admin Dose 1 EACH; Start 11/16/16 at 21:00 Promethazine HCl/ Codeine (Phenergan/ Codeine) 10 ml BID PRN PEG COUGH Last administered on 11/30/16 09:36; Admin Dose 10 ML; Start 11/16/16 at 20:00 Zolpidem Tartrate (Ambien) 5 mg QHS PRN PEG INSOMNIA; Start 11/16/16 at 20:00 Docusate Sodium (Colace Liquid Cup) 100 mg Q12 PRN GTB CONSTIPATION; Start 11/16 at 20:00 Oxycodone HCl (Roxicodone) 10 mg Q4H PO Last administered on 12/12/16 09:06; Admin Dose 10 MG; Start 11/20/16 at 17:30 Midodrine (Proamatine) 2.5 mg TID@08,12,17 NGT Last administered on 12/11/16 18:09; Admin Dose 2.5 MG; Start 11/24/16 at 18:33 Furosemide (Lasix) 20 mg DAILY GTB Last administered on 12/12/16 09:04; Admin Dose 20 MG; Start 12/01/16 at 09:00 Metoprolol Tartrate 12.5 mg 12.5 mg BID PO Last administered on 12/12/16 09:13 ; Admin Dose 12.5 MG; Start 12/03/16 at 21:00 Vancomycin HCl (Vancocin) 100 ml @ 100 mls/hr Q12H IVPB Last administered on 05:21; Admin Dose 100 MLS/HR; Start 12/08/16 at 06:00 RUBIN MAYEN NP Dec 12, 2016 13:32
--- NOTE | 2016-12-12 14:33 | CONS ---
Date/Time of Note Date/Time of Note DATE: 12/12/16 TIME: 14:31 Assessment/Plan Assessment/Plan Additional Assessment/Plan Ventilator setting; AC of 18, tidal volume 450, PEEP of 5, 35% FiO2. Assessment recommendations; 1. Patient admitted with severe sepsis from sacral decubitus ulcers. Patient had cardiac arrest event resulting in respiratory failure subsequently requiring a tracheostomy. There has been marked mental improvement in the last several days. 2. Lung cancer. 3. COPD. 4. Chronic malnutrition. Continue current treatment. Patient can be transferred to correction. Consultation Date/Type/Reason Admit Date/Time Sep 26, 2016 at 20:07 Initial Consult Date 11/14/16 Type of Consultation: Pulmonary Referring Provider: DRE LOBATO MD 24 HR Interval Summary Free Text/Dictation Patient condition remains stable. Remains awake and alert. Remains ventilator dependent. Has remained hemodynamically stable. General exam; elderly woman, on ventilator via tracheostomy currently in no distress. Exam/Review of Systems Vital Signs Vitals Vital Signs Date Time Temp Pulse Resp B/P Pulse Ox O2 Delivery O2 Flow Rate FiO2 12/12/16 13:05 89 20 99 35 12/12/16 11:19 98.6 93/60 Intake and Output 12/11/16 12/11/16 12/12/16 15:00 23:00 07:00 Intake Total 1120 ml 1120 ml Output Total 1700 ml 1100 ml Balance -580 ml 20 ml Exam HEENT exam is; supple neck, tracheostomy placed. Patient has a multiple carious teeth. Pupils are midsize and reactive to light. Pharynx is clear. Chest examined; diminished but clear vessel. S1-S2 audible, no murmurs. Regular rhythm. Abdomen examination of Artemio soft, G-tube in place. Bowel sounds audible. Back exam; dressing applied over sacrum. Extremity exam; no peripheral edema. [employer] exam; patient is awake alert follows simple commands and moves all 4 extremities on command. Results Result Diagram: 12/12/16 0522 12/11/16 0610 Results 24 hrs Laboratory Tests Test 12/12/16 05:22 White Blood Count 14.4 H Red Blood Count 3.20 L Hemoglobin 8.4 L Hematocrit 28.2 L Mean Corpuscular Volume 88.1 Mean Corpuscular Hemoglobin 26.3 L Mean Corpuscular Hemoglobin Concent 29.8 L Red Cell Distribution Width 16.0 H Platelet Count 408 Mean Platelet Volume 9.7 Neutrophils % 75.0 Lymphocytes % 11.5 L Monocytes % 9.5 Eosinophils % 2.8 Basophils % 0.6 Nucleated Red Blood Cells % 0.0 Neutrophils # 10.8 H Lymphocytes # 1.7 Monocytes # 1.4 H Eosinophils # 0.4 Basophils # 0.1 Nucleated Red Blood Cells # 0.0 Medications Medications Current Medications Ondansetron HCl (Zofran Inj) 4 mg Q6 PRN IV NAUSEA AND/OR VOMITING Last administered on 12/09/16 13:19; Admin Dose 4 MG; Start 09/26/16 at 22:30 Collagenase (Santyl) 1 applic DAILY TOP Last administered on 12/12/16 09:06; Admin Dose 1 APPLIC; Start 09/27/16 at 09:00 Collagenase (Santyl) 1 applic PRN PRN TOP SOILED OR DISLODGED DRESSING; Start 09/27/16 at 05:00 Lansoprazole (Prevacid) 30 mg DAILY@06 GTB Last administered on 12/12/16 05:20 ; Admin Dose 30 MG; Start 09/28/16 at 06:00 Cromolyn Sodium (Nasalcrom) 1 spray QID NASAL Last administered on 12/12/16 13 :35; Admin Dose 1 SPRAY; Start 09/29/16 at 11:02 Phenol (Cepastat Lozenge) 1 lozenge Q2H PRN MT SORE THROAT Last administered on 11/02/16 01:02; Admin Dose 1 LOZENGE; Start 10/01/16 at 19:00 IV Flush (NS 10 ml) 10 ml PRN PRN IV IV PROTOCOL Last administered on 11/17/16 03:20; Admin Dose 10 ML; Start 10/02/16 at 19:00 Hydromorphone HCl (Dilaudid) 0.5 mg Q4H PRN IV PAIN Last administered on 13:20; Admin Dose 0.5 MG; Start 10/06/16 at 18:30 Potassium Chloride (Potassium Chloride Pwd/Soln) 20 meq DAILY GTB Last administered on 12/12/16 09:04; Admin Dose 20 MEQ; Start 10/30/16 at 12:00 Acetaminophen (Tylenol Liquid) 650 mg Q6H PRN PEG PAIN AND OR ELEVATED TEMP Last administered on 12/09/16 13:19; Admin Dose 650 MG; Start 11/16/16 at 20:04 Alprazolam (Xanax) 0.5 mg Q12H PRN PEG ANXIETY Last administered on 12/08/16 00:55; Admin Dose 0.5 MG; Start 11/16/16 at 20:30 Ascorbic Acid (Vitamin C) 500 mg BID PEG Last administered on 12/12/16 09:06; Admin Dose 500 MG; Start 11/16/16 at 21:00 Atorvastatin Calcium (Lipitor) 20 mg QHS PEG Last administered on 12/11/16 21: 20; Admin Dose 20 MG; Start 11/16/16 at 21:00 Diazepam (Valium) 10 mg DAILY PEG Last administered on 12/12/16 09:05; Admin Dose 10 MG; Start 11/17/16 at 09:00 Duloxetine HCl (Cymbalta) 20 mg DAILY PEG Last administered on 12/12/16 09:05 ; Admin Dose 20 MG; Start 11/17/16 at 09:00 Lactobacillus Acidophilus (Florajen3 Capsule) 1 each TID PEG Last administered on 12/11/16 21:21; Admin Dose 1 EACH; Start 11/16/16 at 21:00 Promethazine HCl/ Codeine (Phenergan/ Codeine) 10 ml BID PRN PEG COUGH Last administered on 11/30/16 09:36; Admin Dose 10 ML; Start 11/16/16 at 20:00 Zolpidem Tartrate (Ambien) 5 mg QHS PRN PEG INSOMNIA; Start 11/16/16 at 20:00 Docusate Sodium (Colace Liquid Cup) 100 mg Q12 PRN GTB CONSTIPATION; Start 11/16 at 20:00 Oxycodone HCl (Roxicodone) 10 mg Q4H PO Last administered on 12/12/16 13:34; Admin Dose 10 MG; Start 11/20/16 at 17:30 Midodrine (Proamatine) 2.5 mg TID@08,12,17 NGT Last administered on 12/12/16 13:34; Admin Dose 2.5 MG; Start 11/24/16 at 18:33 Furosemide (Lasix) 20 mg DAILY GTB Last administered on 12/12/16 09:04; Admin Dose 20 MG; Start 12/01/16 at 09:00 Metoprolol Tartrate 12.5 mg 12.5 mg BID PO Last administered on 12/12/16 09:13 ; Admin Dose 12.5 MG; Start 12/03/16 at 21:00 Vancomycin HCl (Vancocin) 100 ml @ 100 mls/hr Q12H IVPB Last administered on 05:21; Admin Dose 100 MLS/HR; Start 12/08/16 at 06:00 REGINE BUCKLEY Dec 12, 2016 14:33
--- NOTE | 2016-12-12 15:41 | CONS ---
Date/Time of Note Date/Time of Note DATE: 12/12/16 TIME: 15:39 Assessment/Plan Assessment/Plan Additional Assessment/Plan Sepsis Respiratory failure Cardiopulmonary Arrest Intermittent hypotension Acute decompensated diastolic congestive heart failure Pulmonary hypertension Preserved ejection fraction Tricuspid valve regurgitation Lung cancer SVT -Continue beta-belinda as heart rate and blood pressure permits. -Continue Lasix as blood pressure renal function permits. Maintain potassium above 4.0 and magnesium above 2.0 Consultation Date/Type/Reason Admit Date/Time Sep 26, 2016 at 20:07 Type of Consultation: cv Referring Provider: DRE LOBATO MD 24 HR Interval Summary Free Text/Dictation Patient seen and examined, no new cardiac issues as per nursing staff Exam/Review of Systems Vital Signs Vitals Vital Signs Date Time Temp Pulse Resp B/P Pulse Ox O2 Delivery O2 Flow Rate FiO2 12/12/16 15:20 98.5 89 15 92/52 100 12/12/16 14:39 Room Air 12/12/16 13:05 35 Intake and Output 12/11/16 12/11/16 12/12/16 15:00 23:00 07:00 Intake Total 1120 ml 1120 ml Output Total 1700 ml 1100 ml Balance -580 ml 20 ml Exam Sleeping but arousable, no apparent distress Head: normocephalic Neck: other (Tracheostomy) Respiratory: other (Coarse breath sounds bilaterally, no wheezing) Cardiovascular: other (S1-S2 heard), regular rate and rhythm Gastrointestinal: bowel sounds, non-tender, soft Extremities: edema Results Result Diagram: 12/12/16 0522 12/11/16 0610 Results 24 hrs Laboratory Tests Test 12/12/16 05:22 White Blood Count 14.4 H Red Blood Count 3.20 L Hemoglobin 8.4 L Hematocrit 28.2 L Mean Corpuscular Volume 88.1 Mean Corpuscular Hemoglobin 26.3 L Mean Corpuscular Hemoglobin Concent 29.8 L Red Cell Distribution Width 16.0 H Platelet Count 408 Mean Platelet Volume 9.7 Neutrophils % 75.0 Lymphocytes % 11.5 L Monocytes % 9.5 Eosinophils % 2.8 Basophils % 0.6 Nucleated Red Blood Cells % 0.0 Neutrophils # 10.8 H Lymphocytes # 1.7 Monocytes # 1.4 H Eosinophils # 0.4 Basophils # 0.1 Nucleated Red Blood Cells # 0.0 Medications Medications Current Medications Ondansetron HCl (Zofran Inj) 4 mg Q6 PRN IV NAUSEA AND/OR VOMITING Last administered on 12/09/16 13:19; Admin Dose 4 MG; Start 09/26/16 at 22:30 Collagenase (Santyl) 1 applic DAILY TOP Last administered on 12/12/16 09:06; Admin Dose 1 APPLIC; Start 09/27/16 at 09:00 Collagenase (Santyl) 1 applic PRN PRN TOP SOILED OR DISLODGED DRESSING; Start 09/27/16 at 05:00 Lansoprazole (Prevacid) 30 mg DAILY@06 GTB Last administered on 12/12/16 05:20 ; Admin Dose 30 MG; Start 09/28/16 at 06:00 Cromolyn Sodium (Nasalcrom) 1 spray QID NASAL Last administered on 12/12/16 13 :35; Admin Dose 1 SPRAY; Start 09/29/16 at 11:02 Phenol (Cepastat Lozenge) 1 lozenge Q2H PRN MT SORE THROAT Last administered on 11/02/16 01:02; Admin Dose 1 LOZENGE; Start 10/01/16 at 19:00 IV Flush (NS 10 ml) 10 ml PRN PRN IV IV PROTOCOL Last administered on 11/17/16 03:20; Admin Dose 10 ML; Start 10/02/16 at 19:00 Hydromorphone HCl (Dilaudid) 0.5 mg Q4H PRN IV PAIN Last administered on 13:20; Admin Dose 0.5 MG; Start 10/06/16 at 18:30 Potassium Chloride (Potassium Chloride Pwd/Soln) 20 meq DAILY GTB Last administered on 12/12/16 09:04; Admin Dose 20 MEQ; Start 10/30/16 at 12:00 Acetaminophen (Tylenol Liquid) 650 mg Q6H PRN PEG PAIN AND OR ELEVATED TEMP Last administered on 12/09/16 13:19; Admin Dose 650 MG; Start 11/16/16 at 20:04 Alprazolam (Xanax) 0.5 mg Q12H PRN PEG ANXIETY Last administered on 12/08/16 00:55; Admin Dose 0.5 MG; Start 11/16/16 at 20:30 Ascorbic Acid (Vitamin C) 500 mg BID PEG Last administered on 12/12/16 09:06; Admin Dose 500 MG; Start 11/16/16 at 21:00 Atorvastatin Calcium (Lipitor) 20 mg QHS PEG Last administered on 12/11/16 21: 20; Admin Dose 20 MG; Start 11/16/16 at 21:00 Diazepam (Valium) 10 mg DAILY PEG Last administered on 12/12/16 09:05; Admin Dose 10 MG; Start 11/17/16 at 09:00 Duloxetine HCl (Cymbalta) 20 mg DAILY PEG Last administered on 12/12/16 09:05 ; Admin Dose 20 MG; Start 11/17/16 at 09:00 Lactobacillus Acidophilus (Florajen3 Capsule) 1 each TID PEG Last administered on 12/11/16 21:21; Admin Dose 1 EACH; Start 11/16/16 at 21:00 Promethazine HCl/ Codeine (Phenergan/ Codeine) 10 ml BID PRN PEG COUGH Last administered on 11/30/16 09:36; Admin Dose 10 ML; Start 11/16/16 at 20:00 Zolpidem Tartrate (Ambien) 5 mg QHS PRN PEG INSOMNIA; Start 11/16/16 at 20:00 Docusate Sodium (Colace Liquid Cup) 100 mg Q12 PRN GTB CONSTIPATION; Start 11/16 at 20:00 Oxycodone HCl (Roxicodone) 10 mg Q4H PO Last administered on 12/12/16 13:34; Admin Dose 10 MG; Start 11/20/16 at 17:30 Midodrine (Proamatine) 2.5 mg TID@08,12,17 NGT Last administered on 12/12/16 13:34; Admin Dose 2.5 MG; Start 11/24/16 at 18:33 Furosemide (Lasix) 20 mg DAILY GTB Last administered on 12/12/16 09:04; Admin Dose 20 MG; Start 12/01/16 at 09:00 Metoprolol Tartrate 12.5 mg 12.5 mg BID PO Last administered on 12/12/16 09:13 ; Admin Dose 12.5 MG; Start 12/03/16 at 21:00 Vancomycin HCl (Vancocin) 100 ml @ 100 mls/hr Q12H IVPB Last administered on t 05:21; Admin Dose 100 MLS/HR; Start 12/08/16 at 06:00 Artemio Tipton DO Dec 12, 2016 15:41
--- NOTE | 2016-12-12 16:52 | PN ---
Date/Time of Note Date/Time of Note DATE: 12/12/16 TIME: 16:46 Assessment/Plan VTE Prophylaxis VTE Prophylaxis Intervention: SCD's Lines/Catheters IV C[facility]ter Type (from [facility] Peripheral IV Urinary Cath still in place: Yes Reason Cath still needed: urinary retention Assessment/Plan Chief Complaint/Hosp Course PICC line DCed, patient has peripheral IV, pending PICC line placement, continues to have fluctuation in blood pressure, no fever. ASSESSMENT AND PLAN: - Recurrent sepsis with Staphylococcus bacteremia, continue vancomycin. Dr. Coleman is following an infection disease consultation. - Status post tracheostomy by Dr. White, ENT on 11/28. - Status post cardiopulmonary arrest. - Acute respiratory failure. Continue breathing treatment, oxygen supply supplementation and bronchodilators. Dr. Lopez is following in pulmonology consultation. - Left lung squamous carcinoma. The patient is not a candidate for chemotherapy. Dr. Calvo is following in oncology consultation. - Chronic obstructive pulmonary disease. Patient with long history of tobacco use. - Anemia of chronic disease. Continue to monitor hemoglobin and hematocrit. - Dysphagia with G-tube. Continue G-tube feeding, monitor residual. Continue aspiration precautions. - Hypothyroidism. Continue Synthroid. - Chronic pain. - Failure to thrive. Continue sequential compression device for deep venous thrombosis prophylaxis and Prevacid for peptic ulcer disease prophylaxis. Further recommendations based on clinical course. Plan of care discussed with Dr. Dozier. Problems: Exam/Review of Systems Vital Signs Vitals Vital Signs Date Time Temp Pulse Resp B/P Pulse Ox O2 Delivery O2 Flow Rate FiO2 12/12/16 16:41 88 12/12/16 15:20 98.5 15 92/52 100 12/12/16 15:05 35 12/12/16 14:39 Room Air Intake and Output 12/11/16 12/11/16 12/12/16 15:00 23:00 07:00 Intake Total 1120 ml 1120 ml Output Total 1700 ml 1100 ml Balance -580 ml 20 ml Exam Constitutional: frail Head: normocephalic ENMT: other (tracheostomy) Respiratory: diminished breath sounds Cardiovascular: nl pulses Gastrointestinal: non-tender, other (G-tube), soft Extremities: normal pulses Skin: other (Multiple wounds) Results Result Diagram: 12/12/16 0522 12/11/16 0610 Results 24 hrs Laboratory Tests Test 12/12/16 05:22 White Blood Count 14.4 H Red Blood Count 3.20 L Hemoglobin 8.4 L Hematocrit 28.2 L Mean Corpuscular Volume 88.1 Mean Corpuscular Hemoglobin 26.3 L Mean Corpuscular Hemoglobin Concent 29.8 L Red Cell Distribution Width 16.0 H Platelet Count 408 Mean Platelet Volume 9.7 Neutrophils % 75.0 Lymphocytes % 11.5 L Monocytes % 9.5 Eosinophils % 2.8 Basophils % 0.6 Nucleated Red Blood Cells % 0.0 Neutrophils # 10.8 H Lymphocytes # 1.7 Monocytes # 1.4 H Eosinophils # 0.4 Basophils # 0.1 Nucleated Red Blood Cells # 0.0 Medications Medications Current Medications Ondansetron HCl (Zofran Inj) 4 mg Q6 PRN IV NAUSEA AND/OR VOMITING Last administered on 12/09/16 13:19; Admin Dose 4 MG; Start 09/26/16 at 22:30 Collagenase (Santyl) 1 applic DAILY TOP Last administered on 12/12/16 09:06; Admin Dose 1 APPLIC; Start 09/27/16 at 09:00 Collagenase (Santyl) 1 applic PRN PRN TOP SOILED OR DISLODGED DRESSING; Start 09/27/16 at 05:00 Lansoprazole (Prevacid) 30 mg DAILY@06 GTB Last administered on 12/12/16 05:20 ; Admin Dose 30 MG; Start 09/28/16 at 06:00 Cromolyn Sodium (Nasalcrom) 1 spray QID NASAL Last administered on 12/12/16 13 :35; Admin Dose 1 SPRAY; Start 09/29/16 at 11:02 Phenol (Cepastat Lozenge) 1 lozenge Q2H PRN MT SORE THROAT Last administered on 11/02/16 01:02; Admin Dose 1 LOZENGE; Start 10/01/16 at 19:00 IV Flush (NS 10 ml) 10 ml PRN PRN IV IV PROTOCOL Last administered on 11/17/16 03:20; Admin Dose 10 ML; Start 10/02/16 at 19:00 Hydromorphone HCl (Dilaudid) 0.5 mg Q4H PRN IV PAIN Last administered on 13:20; Admin Dose 0.5 MG; Start 10/06/16 at 18:30 Potassium Chloride (Potassium Chloride Pwd/Soln) 20 meq DAILY GTB Last administered on 12/12/16 09:04; Admin Dose 20 MEQ; Start 10/30/16 at 12:00 Acetaminophen (Tylenol Liquid) 650 mg Q6H PRN PEG PAIN AND OR ELEVATED TEMP Last administered on 12/09/16 13:19; Admin Dose 650 MG; Start 11/16/16 at 20:04 Alprazolam (Xanax) 0.5 mg Q12H PRN PEG ANXIETY Last administered on 12/08/16 00:55; Admin Dose 0.5 MG; Start 11/16/16 at 20:30 Ascorbic Acid (Vitamin C) 500 mg BID PEG Last administered on 12/12/16 09:06; Admin Dose 500 MG; Start 11/16/16 at 21:00 Atorvastatin Calcium (Lipitor) 20 mg QHS PEG Last administered on 12/11/16 21: 20; Admin Dose 20 MG; Start 11/16/16 at 21:00 Diazepam (Valium) 10 mg DAILY PEG Last administered on 12/12/16 09:05; Admin Dose 10 MG; Start 11/17/16 at 09:00 Duloxetine HCl (Cymbalta) 20 mg DAILY PEG Last administered on 12/12/16 09:05 ; Admin Dose 20 MG; Start 11/17/16 at 09:00 Lactobacillus Acidophilus (Florajen3 Capsule) 1 each TID PEG Last administered on 12/11/16 21:21; Admin Dose 1 EACH; Start 11/16/16 at 21:00 Promethazine HCl/ Codeine (Phenergan/ Codeine) 10 ml BID PRN PEG COUGH Last administered on 11/30/16 09:36; Admin Dose 10 ML; Start 11/16/16 at 20:00 Zolpidem Tartrate (Ambien) 5 mg QHS PRN PEG INSOMNIA; Start 11/16/16 at 20:00 Docusate Sodium (Colace Liquid Cup) 100 mg Q12 PRN GTB CONSTIPATION; Start 11/16 at 20:00 Oxycodone HCl (Roxicodone) 10 mg Q4H PO Last administered on 12/12/16 13:34; Admin Dose 10 MG; Start 11/20/16 at 17:30 Midodrine (Proamatine) 2.5 mg TID@08,,17 NGT Last administered on 12/12/16 13:34; Admin Dose 2.5 MG; Start 11/24/16 at 18:33 Furosemide (Lasix) 20 mg DAILY GTB Last administered on 12/12/16 09:04; Admin Dose 20 MG; Start 12/01/16 at 09:00 Metoprolol Tartrate 12.5 mg 12.5 mg BID PO Last administered on 12/12/16 09:13 ; Admin Dose 12.5 MG; Start 12/03/16 at 21:00 Vancomycin HCl (Vancocin) 100 ml @ 100 mls/hr Q12H IVPB Last administered on 05:21; Admin Dose 100 MLS/HR; Start 12/08/16 at 06:00 REBECCA ISLAS Dec 12, 2016 16:52
--- NOTE | 2016-12-12 18:09 | CONS ---
Date/Time of Note Date/Time of Note DATE: 12/12/16 TIME: 18:07 Assessment/Plan Assessment/Plan Additional Assessment/Plan 1. acute on chronic resp failure intubated on ventilator- not able to wean off s/p Tracheostomy 2. PEA s/p resuscitation 3. Hyponatremia multifactorial 4. Pneumonia. 3. Lung cancer. 4. History of Clostridium difficile colitis and recurrent urinary tract infection. 5. Unstageable sacral wound, status post debridement with wound VAC application. PLAN: conitnue IV abx, ID following, S/p Tracheostomy making good urine Na 133, Cr normal will follow up Consultation Date/Type/Reason Admit Date/Time Sep 26, 2016 at 20:07 Type of Consultation: NEPHROLOGY Referring Provider: DRE LOBATO MD Exam/Review of Systems Vital Signs Vitals Vital Signs Date Time Temp Pulse Resp B/P Pulse Ox O2 Delivery O2 Flow Rate FiO2 12/12/16 17:05 89 20 98 35 12/12/16 15:20 98.5 92/52 12/12/16 14:39 Room Air Intake and Output 12/11/16 12/11/16 12/12/16 15:00 23:00 07:00 Intake Total 1120 ml 1120 ml Output Total 1700 ml 1100 ml Balance -580 ml 20 ml Exam GENERAL: Chronically ill-appearing, + tracheostomy HEENT: + tracheostomy NECK: Supple. CHEST: Rise symmetrical. Breath sounds diminished. HEART: S1, S2. ABDOMEN: Soft. EXTREMITIES: No cyanosis. Results Result Diagram: 12/12/16 0522 12/11/16 0610 Results 24 hrs Laboratory Tests Test 12/12/16 05:22 White Blood Count 14.4 H Red Blood Count 3.20 L Hemoglobin 8.4 L Hematocrit 28.2 L Mean Corpuscular Volume 88.1 Mean Corpuscular Hemoglobin 26.3 L Mean Corpuscular Hemoglobin Concent 29.8 L Red Cell Distribution Width 16.0 H Platelet Count 408 Mean Platelet Volume 9.7 Neutrophils % 75.0 Lymphocytes % 11.5 L Monocytes % 9.5 Eosinophils % 2.8 Basophils % 0.6 Nucleated Red Blood Cells % 0.0 Neutrophils # 10.8 H Lymphocytes # 1.7 Monocytes # 1.4 H Eosinophils # 0.4 Basophils # 0.1 Nucleated Red Blood Cells # 0.0 Medications Medications Current Medications Ondansetron HCl (Zofran Inj) 4 mg Q6 PRN IV NAUSEA AND/OR VOMITING Last administered on 12/09/16 13:19; Admin Dose 4 MG; Start 09/26/16 at 22:30 Collagenase (Santyl) 1 applic DAILY TOP Last administered on 12/12/16 09:06; Admin Dose 1 APPLIC; Start 09/27/16 at 09:00 Collagenase (Santyl) 1 applic PRN PRN TOP SOILED OR DISLODGED DRESSING; Start 09/27/16 at 05:00 Lansoprazole (Prevacid) 30 mg DAILY@06 GTB Last administered on 12/12/16 05:20 ; Admin Dose 30 MG; Start 09/28/16 at 06:00 Cromolyn Sodium (Nasalcrom) 1 spray QID NASAL Last administered on 12/12/16 13 :35; Admin Dose 1 SPRAY; Start 09/29/16 at 11:02 Phenol (Cepastat Lozenge) 1 lozenge Q2H PRN MT SORE THROAT Last administered on 11/02/16 01:02; Admin Dose 1 LOZENGE; Start 10/01/16 at 19:00 IV Flush (NS 10 ml) 10 ml PRN PRN IV IV PROTOCOL Last administered on 11/17/16 03:20; Admin Dose 10 ML; Start 10/02/16 at 19:00 Hydromorphone HCl (Dilaudid) 0.5 mg Q4H PRN IV PAIN Last administered on 13:20; Admin Dose 0.5 MG; Start 10/06/16 at 18:30 Potassium Chloride (Potassium Chloride Pwd/Soln) 20 meq DAILY GTB Last administered on 12/12/16 09:04; Admin Dose 20 MEQ; Start 10/30/16 at 12:00 Acetaminophen (Tylenol Liquid) 650 mg Q6H PRN PEG PAIN AND OR ELEVATED TEMP Last administered on 12/09/16 13:19; Admin Dose 650 MG; Start 11/16/16 at 20:04 Alprazolam (Xanax) 0.5 mg Q12H PRN PEG ANXIETY Last administered on 12/08/16 00:55; Admin Dose 0.5 MG; Start 11/16/16 at 20:30 Ascorbic Acid (Vitamin C) 500 mg BID PEG Last administered on 12/12/16 09:06; Admin Dose 500 MG; Start 11/16/16 at 21:00 Atorvastatin Calcium (Lipitor) 20 mg QHS PEG Last administered on 12/11/16 21: 20; Admin Dose 20 MG; Start 11/16/16 at 21:00 Diazepam (Valium) 10 mg DAILY PEG Last administered on 12/12/16 09:05; Admin Dose 10 MG; Start 11/17/16 at 09:00 Duloxetine HCl (Cymbalta) 20 mg DAILY PEG Last administered on 12/12/16 09:05 ; Admin Dose 20 MG; Start 11/17/16 at 09:00 Lactobacillus Acidophilus (Florajen3 Capsule) 1 each TID PEG Last administered on 12/11/16 21:21; Admin Dose 1 EACH; Start 11/16/16 at 21:00 Promethazine HCl/ Codeine (Phenergan/ Codeine) 10 ml BID PRN PEG COUGH Last administered on 11/30/16 09:36; Admin Dose 10 ML; Start 11/16/16 at 20:00 Zolpidem Tartrate (Ambien) 5 mg QHS PRN PEG INSOMNIA; Start 11/16/16 at 20:00 Docusate Sodium (Colace Liquid Cup) 100 mg Q12 PRN GTB CONSTIPATION; Start 11/16 at 20:00 Oxycodone HCl (Roxicodone) 10 mg Q4H PO Last administered on 12/12/16 13:34; Admin Dose 10 MG; Start 11/20/16 at 17:30 Midodrine (Proamatine) 2.5 mg TID@08,12,17 NGT Last administered on 12/12/16 13:34; Admin Dose 2.5 MG; Start 11/24/16 at 18:33 Furosemide (Lasix) 20 mg DAILY GTB Last administered on 12/12/16 09:04; Admin Dose 20 MG; Start 12/01/16 at 09:00 Metoprolol Tartrate 12.5 mg 12.5 mg BID PO Last administered on 12/12/16 09:13 ; Admin Dose 12.5 MG; Start 12/03/16 at 21:00 Vancomycin HCl (Vancocin) 100 ml @ 100 mls/hr Q12H IVPB Last administered on t 05:21; Admin Dose 100 MLS/HR; Start 12/08/16 at 06:00 DIONNE SAUCEDA MD Dec 12, 2016 18:09
--- NOTE | 2016-12-12 21:22 | CONS ---
Date/Time of Note Date/Time of Note DATE: 12/12/16 TIME: 21:22 Assessment/Plan Assessment/Plan Chief Complaint/Hosp Course Left lung squamous carcinoma. The patient is not a candidate for chemotherapy. Anemia of chronic disease. post 12 u prbc monitor blood count closely transfuse as needed to keep HB above 8 Acute respiratory insufficiency requiring BiPAP. trach -per daughter's wishes Acute shock, septic versus hypovolemic. tachycardia with episode of SVT. Chronic obstructive pulmonary disease. Dysphagia with G-tube. Continue current G-tube feeding. Hypothyroidism. Continue Synthroid. Problems: Consultation Date/Type/Reason Admit Date/Time Sep 26, 2016 at 20:07 Initial Consult Date 10/19/16 Type of Consultation: hemeon Referring Provider: DRE LOBATO MD 24 HR Interval Summary Free Text/Dictation ALL NOTED Exam/Review of Systems Vital Signs Vitals Vital Signs Date Time Temp Pulse Resp B/P Pulse Ox O2 Delivery O2 Flow Rate FiO2 12/12/16 20:00 98.4 90 15 102/65 97 12/12/16 17:05 35 12/12/16 14:39 Room Air Intake and Output 12/11/16 12/11/16 12/12/16 15:00 23:00 07:00 Intake Total 1120 ml 1120 ml Output Total 1700 ml 1100 ml Balance -580 ml 20 ml Exam Constitutional: alert Neck: other (trach intact) Respiratory: clear to auscultation, normal air movement Cardiovascular: nl pulses Gastrointestinal: soft Musculoskeletal: muscle weakness Extremities: normal pulses Neurological: other Results Result Diagram: 12/12/16 0522 12/11/16 0610 Results 24 hrs Laboratory Tests Test 12/12/16 05:22 White Blood Count 14.4 H Red Blood Count 3.20 L Hemoglobin 8.4 L Hematocrit 28.2 L Mean Corpuscular Volume 88.1 Mean Corpuscular Hemoglobin 26.3 L Mean Corpuscular Hemoglobin Concent 29.8 L Red Cell Distribution Width 16.0 H Platelet Count 408 Mean Platelet Volume 9.7 Neutrophils % 75.0 Lymphocytes % 11.5 L Monocytes % 9.5 Eosinophils % 2.8 Basophils % 0.6 Nucleated Red Blood Cells % 0.0 Neutrophils # 10.8 H Lymphocytes # 1.7 Monocytes # 1.4 H Eosinophils # 0.4 Basophils # 0.1 Nucleated Red Blood Cells # 0.0 Medications Medications Current Medications Ondansetron HCl (Zofran Inj) 4 mg Q6 PRN IV NAUSEA AND/OR VOMITING Last administered on 12/09/16 13:19; Admin Dose 4 MG; Start 09/26/16 at 22:30 Collagenase (Santyl) 1 applic DAILY TOP Last administered on 12/12/16 09:06; Admin Dose 1 APPLIC; Start 09/27/16 at 09:00 Collagenase (Santyl) 1 applic PRN PRN TOP SOILED OR DISLODGED DRESSING; Start 09/27/16 at 05:00 Lansoprazole (Prevacid) 30 mg DAILY@06 GTB Last administered on 12/12/16 05:20 ; Admin Dose 30 MG; Start 09/28/16 at 06:00 Cromolyn Sodium (Nasalcrom) 1 spray QID NASAL Last administered on 12/12/16 18 :06; Admin Dose 1 SPRAY; Start 09/29/16 at 11:02 Phenol (Cepastat Lozenge) 1 lozenge Q2H PRN MT SORE THROAT Last administered on 11/02/16 01:02; Admin Dose 1 LOZENGE; Start 10/01/16 at 19:00 IV Flush (NS 10 ml) 10 ml PRN PRN IV IV PROTOCOL Last administered on 11/17/16 03:20; Admin Dose 10 ML; Start 10/02/16 at 19:00 Hydromorphone HCl (Dilaudid) 0.5 mg Q4H PRN IV PAIN Last administered on 13:20; Admin Dose 0.5 MG; Start 10/06/16 at 18:30 Potassium Chloride (Potassium Chloride Pwd/Soln) 20 meq DAILY GTB Last administered on 12/12/16 09:04; Admin Dose 20 MEQ; Start 10/30/16 at 12:00 Acetaminophen (Tylenol Liquid) 650 mg Q6H PRN PEG PAIN AND OR ELEVATED TEMP Last administered on 12/09/16 13:19; Admin Dose 650 MG; Start 11/16/16 at 20:04 Alprazolam (Xanax) 0.5 mg Q12H PRN PEG ANXIETY Last administered on 12/08/16 00:55; Admin Dose 0.5 MG; Start 11/16/16 at 20:30 Ascorbic Acid (Vitamin C) 500 mg BID PEG Last administered on 12/12/16 09:06; Admin Dose 500 MG; Start 11/16/16 at 21:00 Atorvastatin Calcium (Lipitor) 20 mg QHS PEG Last administered on 12/11/16 21: 20; Admin Dose 20 MG; Start 11/16/16 at 21:00 Diazepam (Valium) 10 mg DAILY PEG Last administered on 12/12/16 09:05; Admin Dose 10 MG; Start 11/17/16 at 09:00 Duloxetine HCl (Cymbalta) 20 mg DAILY PEG Last administered on 12/12/16 09:05 ; Admin Dose 20 MG; Start 11/17/16 at 09:00 Lactobacillus Acidophilus (Florajen3 Capsule) 1 each TID PEG Last administered on 12/11/16 21:21; Admin Dose 1 EACH; Start 11/16/16 at 21:00 Promethazine HCl/ Codeine (Phenergan/ Codeine) 10 ml BID PRN PEG COUGH Last administered on 11/30/16 09:36; Admin Dose 10 ML; Start 11/16/16 at 20:00 Zolpidem Tartrate (Ambien) 5 mg QHS PRN PEG INSOMNIA; Start 11/16/16 at 20:00 Docusate Sodium (Colace Liquid Cup) 100 mg Q12 PRN GTB CONSTIPATION; Start 11/16 at 20:00 Oxycodone HCl (Roxicodone) 10 mg Q4H PO Last administered on 12/12/16 18:06; Admin Dose 10 MG; Start 11/20/16 at 17:30 Midodrine (Proamatine) 2.5 mg TID@08,12,17 NGT Last administered on 12/12/16 18:11; Admin Dose 2.5 MG; Start 11/24/16 at 18:33 Furosemide (Lasix) 20 mg DAILY GTB Last administered on 12/12/16 09:04; Admin Dose 20 MG; Start 12/01/16 at 09:00 Metoprolol Tartrate 12.5 mg 12.5 mg BID PO Last administered on 12/12/16 09:13 ; Admin Dose 12.5 MG; Start 12/03/16 at 21:00 Vancomycin HCl (Vancocin) 100 ml @ 100 mls/hr Q12H IVPB Last administered on t 18:11; Admin Dose 100 MLS/HR; Start 12/08/16 at 06:00 Miscellaneous Information (*Rx Drug Level Order Reminder*) 1 ONCE ONCE XX ; Start 12/13/16 at 17:00; Stop 12/13/16 at 17:01 DYLLAN CARRION MD Dec 12, 2016 21:22
[2016-12-12] MEDS: ATORVASTATIN 20 MG TAB PEG SCH (21:39)
[2016-12-13] VITALS (19 sets, daily range): BP systolic 101–106; BP diastolic 61–71; PULSE 105–120; RESP 16–27
[2016-12-13] MEDS: oxyCODONE 5 MG TAB PO SCH ×5 (02:02→17:48)
[2016-12-13] MEDS: VANCOMYCIN 500MG/NS (PMX) 100 ML IVPB SCH ×2 (06:05→18:00)
[2016-12-13] MEDS: LEVOTHYROXINE 125 MCG TAB PEG SCH (06:06)
[2016-12-13] MEDS: LANSOPRAZOLE 30 MG CAP GTB SCH (06:06)
[2016-12-13 07:33] LABS: ADD SCAN DIFF NO
[2016-12-13 07:36] LABS: BASOPHIL # 0.1 10^3/ul (0.0-0.1); BASOPHILS % 0.4 % (0.0-2.0); EOSINOPHILS # 0.3 10^3/ul (0.0-0.5); EOSINOPHILS % 1.7 % (0.0-7.0); HEMATOCRIT 29.7 % (37.0-47.0); HEMOGLOBIN 9.1 g/dl (12.0-16.0); LYMPHOCYTES # 1.5 10^3/ul (0.8-2.9); LYMPHOCYTES % 9.2 % (15.0-51.0); MEAN CORPUSCULAR HEMOGLOBIN 26.4 pg (29.0-33.0); MEAN CORPUSCULAR HGB CONC 30.6 g/dl (32.0-37.0); MEAN CORPUSCULAR VOLUME 86.1 fl (82.0-101.0); MEAN PLATELET VOLUME 9.1 fl (7.4-10.4); MONOCYTE # 1.4 10^3/ul (0.3-0.9); MONOCYTES % 8.4 % (0.0-11.0); NEUTROPHIL # 12.8 10^3/ul (1.6-7.5); NEUTROPHILS % 79.7 % (39.0-77.0); PLATELET COUNT 419 10^3/UL (140-415); RED BLOOD COUNT 3.45 10^6/ul (4.20-5.40); RED CELL DISTRIBUTION WIDTH 15.9 % (11.5-14.5); WHITE BLOOD COUNT 16.1 10^3/ul (4.8-10.8)
[2016-12-13] MEDS: MIDODRINE 2.5 MG TAB NGT SCH ×3 (08:00→18:03)
[2016-12-13 08:11] LABS: CREATININE 0.49 mg/dl (0.44-1.00)
[2016-12-13] MEDS: FUROSEMIDE 20 MG TAB GTB SCH (09:09)
[2016-12-13] MEDS: L ACIDOPHIL/B LACTIS/B LONGUM CAPSULE PEG SCH ×2 (09:10→14:15)
[2016-12-13] MEDS: METOPROLOL 25 MG TAB PO SCH (09:10)
[2016-12-13] MEDS: COLLAGENASE 30 GM TUBE TOP SCH (09:10)
[2016-12-13] MEDS: DULOXETINE 20 MG CAP DR PEG SCH (09:10)
[2016-12-13] MEDS: POTASSIUM CHLORIDE 20 MEQ POWDER FOR ORAL SOLN GTB SCH (09:10)
[2016-12-13] MEDS: ASCORBIC ACID 500 MG TAB PEG SCH (09:10)
[2016-12-13] MEDS: CROMOLYN 4% 26ML NAS INH NASAL SCH ×3 (09:11→17:48)
[2016-12-13] MEDS: DIAZEPAM 5 MG TAB PEG SCH (09:21)
--- NOTE | 2016-12-13 11:33 | CONS ---
Date/Time of Note Date/Time of Note DATE: 12/13/16 TIME: 11:31 Assessment/Plan Assessment/Plan Additional Assessment/Plan Sepsis Respiratory failure Cardiopulmonary Arrest Intermittent hypotension Acute decompensated diastolic congestive heart failure Pulmonary hypertension Preserved ejection fraction Tricuspid valve regurgitation Lung cancer SVT -Continue beta-belinda as heart rate and blood pressure permits. -Continue Lasix as blood pressure renal function permits. Maintain potassium above 4.0 and magnesium above 2.0 Consultation Date/Type/Reason Admit Date/Time Sep 26, 2016 at 20:07 Type of Consultation: cv Referring Provider: DRE LOBATO MD 24 HR Interval Summary Free Text/Dictation Denies chest pain, shortness of breath Exam/Review of Systems Vital Signs Vitals Vital Signs Date Time Temp Pulse Resp B/P Pulse Ox O2 Delivery O2 Flow Rate FiO2 12/13/16 08:49 111 22 99 30 12/13/16 07:50 99.4 101/65 12/12/16 14:39 Room Air Intake and Output 12/12/16 12/12/16 12/13/16 15:00 23:00 07:00 Intake Total 920 ml Output Total 1850 ml 800 ml Balance -1850 ml 120 ml Exam Following commands, no apparent distress Constitutional: alert Head: normocephalic Neck: other (Tracheostomy) Respiratory: other (Coarse breath sounds bilaterally, no wheezing) Cardiovascular: other (S1-S2 heard), regular rate and rhythm Gastrointestinal: bowel sounds, non-tender, soft Extremities: edema Results Result Diagram: 12/13/16 0722 12/13/16 0722 Results 24 hrs Laboratory Tests Test 12/13/16 07:22 White Blood Count 16.1 H Red Blood Count 3.45 L Hemoglobin 9.1 L Hematocrit 29.7 L Mean Corpuscular Volume 86.1 Mean Corpuscular Hemoglobin 26.4 L Mean Corpuscular Hemoglobin Concent 30.6 L Red Cell Distribution Width 15.9 H Platelet Count 419 H Mean Platelet Volume 9.1 Neutrophils % 79.7 H Lymphocytes % 9.2 L Monocytes % 8.4 Eosinophils % 1.7 Basophils % 0.4 Nucleated Red Blood Cells % 0.0 Neutrophils # 12.8 H Lymphocytes # 1.5 Monocytes # 1.4 H Eosinophils # 0.3 Basophils # 0.1 Nucleated Red Blood Cells # 0.0 Blood Urea Nitrogen 18 Creatinine 0.49 Medications Medications Current Medications Ondansetron HCl (Zofran Inj) 4 mg Q6 PRN IV NAUSEA AND/OR VOMITING Last administered on 12/09/16 13:19; Admin Dose 4 MG; Start 09/26/16 at 22:30 Collagenase (Santyl) 1 applic DAILY TOP Last administered on 12/13/16 09:10; Admin Dose 1 APPLIC; Start 09/27/16 at 09:00 Collagenase (Santyl) 1 applic PRN PRN TOP SOILED OR DISLODGED DRESSING; Start 09/27/16 at 05:00 Lansoprazole (Prevacid) 30 mg DAILY@06 GTB Last administered on 12/13/16 06:06 ; Admin Dose 30 MG; Start 09/28/16 at 06:00 Cromolyn Sodium (Nasalcrom) 1 spray QID NASAL Last administered on 12/13/16 09 :11; Admin Dose 1 SPRAY; Start 09/29/16 at 11:02 Phenol (Cepastat Lozenge) 1 lozenge Q2H PRN MT SORE THROAT Last administered on 11/02/16 01:02; Admin Dose 1 LOZENGE; Start 10/01/16 at 19:00 IV Flush (NS 10 ml) 10 ml PRN PRN IV IV PROTOCOL Last administered on 11/17/16 03:20; Admin Dose 10 ML; Start 10/02/16 at 19:00 Hydromorphone HCl (Dilaudid) 0.5 mg Q4H PRN IV PAIN Last administered on 13:20; Admin Dose 0.5 MG; Start 10/06/16 at 18:30 Potassium Chloride (Potassium Chloride Pwd/Soln) 20 meq DAILY GTB Last administered on 12/13/16 09:10; Admin Dose 20 MEQ; Start 10/30/16 at 12:00 Acetaminophen (Tylenol Liquid) 650 mg Q6H PRN PEG PAIN AND OR ELEVATED TEMP Last administered on 12/09/16 13:19; Admin Dose 650 MG; Start 11/16/16 at 20:04 Alprazolam (Xanax) 0.5 mg Q12H PRN PEG ANXIETY Last administered on 12/08/16 00:55; Admin Dose 0.5 MG; Start 11/16/16 at 20:30 Ascorbic Acid (Vitamin C) 500 mg BID PEG Last administered on 12/13/16 09:10; Admin Dose 500 MG; Start 11/16/16 at 21:00 Atorvastatin Calcium (Lipitor) 20 mg QHS PEG Last administered on 12/12/16 21: 39; Admin Dose 20 MG; Start 11/16/16 at 21:00 Diazepam (Valium) 10 mg DAILY PEG Last administered on 12/13/16 09:21; Admin Dose 10 MG; Start 11/17/16 at 09:00 Duloxetine HCl (Cymbalta) 20 mg DAILY PEG Last administered on 12/13/16 09:10 ; Admin Dose 20 MG; Start 11/17/16 at 09:00 Lactobacillus Acidophilus (Florajen3 Capsule) 1 each TID PEG Last administered on 12/13/16 09:10; Admin Dose 1 EACH; Start 11/16/16 at 21:00 Promethazine HCl/ Codeine (Phenergan/ Codeine) 10 ml BID PRN PEG COUGH Last administered on 11/30/16 09:36; Admin Dose 10 ML; Start 11/16/16 at 20:00 Zolpidem Tartrate (Ambien) 5 mg QHS PRN PEG INSOMNIA; Start 11/16/16 at 20:00 Docusate Sodium (Colace Liquid Cup) 100 mg Q12 PRN GTB CONSTIPATION; Start 11/16 at 20:00 Oxycodone HCl (Roxicodone) 10 mg Q4H PO Last administered on 12/13/16 09:22; Admin Dose 10 MG; Start 11/20/16 at 17:30 Midodrine (Proamatine) 2.5 mg TID@08,12,17 NGT Last administered on 12/12/16 18:11; Admin Dose 2.5 MG; Start 11/24/16 at 18:33 Furosemide (Lasix) 20 mg DAILY GTB Last administered on 12/13/16 09:09; Admin Dose 20 MG; Start 12/01/16 at 09:00 Metoprolol Tartrate 12.5 mg 12.5 mg BID PO Last administered on 12/13/16 09:10 ; Admin Dose 12.5 MG; Start 12/03/16 at 21:00 Vancomycin HCl (Vancocin) 100 ml @ 100 mls/hr Q12H IVPB Last administered on t 06:05; Admin Dose 100 MLS/HR; Start 12/08/16 at 06:00 Miscellaneous Information (*Rx Drug Level Order Reminder*) 1 ONCE ONCE XX ; Start 12/13/16 at 17:00; Stop 12/13/16 at 17:01 Artemio Tipton DO Dec 13, 2016 11:33
[2016-12-13] MEDS ORDERED: LIDOCAINE 1% (MPF) 5 ML VIAL SC ONE (12:00)
--- NOTE | 2016-12-13 13:07 | CONS ---
Date/Time of Note Date/Time of Note DATE: 12/13/16 TIME: 13:05 Assessment/Plan Assessment/Plan Chief Complaint/Hosp Course SUBJECTIVE: Awake, looks comfortable, no fevers INDWELLINGS: Trach, PEG, George Micro: Bld cx 12/06 + Staph sp Abx: Vancomycin PHYSICAL EXAMINATION: GENERAL: Fragile cachectic elderly woman who is in no distress. HEENT: Head atraumatic, normocephalic. Sclerae anicteric. Buccal mucosa dry. NECK: Supple. Tracheostomy present. CHEST: Rise symmetrical. Breath sounds diminished to bases. HEART: S1, S2. ABDOMEN: Soft, bowel tones present. EXTREMITIES: With trace dependent edema. ASSESSMENT: 1. Staph bacteremia, s/p PICC dc'd 2. Status post septic shock, urinary tract infection, and pneumonia. 3. Chronic respiratory failure. 4. Lung cancer. 5. History of Clostridium difficile colitis. 6. Unstageable sacral decubitus, status post debridement with wound VAC, completed 6 weeks antibiotics. 7. Cachexia. 7. Dysphagia, status post percutaneous endoscopic gastrostomy. PLAN: Clinically stable, repeat bld cx negative, wound culture growing gram- negative rods, continue Vanco, pending PICC line. Await for final wound cultures DW staff Problems: Consultation Date/Type/Reason Admit Date/Time Sep 26, 2016 at 20:07 Type of Consultation: Infectious disease Referring Provider: DRE LOBATO MD Exam/Review of Systems Vital Signs Vitals Vital Signs Date Time Temp Pulse Resp B/P Pulse Ox O2 Delivery O2 Flow Rate FiO2 12/13/16 12:27 105 12/13/16 11:42 23 99 30 12/13/16 07:50 99.4 101/65 12/12/16 14:39 Room Air Intake and Output 12/12/16 12/12/16 12/13/16 15:00 23:00 07:00 Intake Total 920 ml Output Total 1850 ml 800 ml Balance -1850 ml 120 ml Results Result Diagram: 12/13/16 0722 12/13/16 0722 Results 24 hrs Laboratory Tests Test 12/13/16 07:22 White Blood Count 16.1 H Red Blood Count 3.45 L Hemoglobin 9.1 L Hematocrit 29.7 L Mean Corpuscular Volume 86.1 Mean Corpuscular Hemoglobin 26.4 L Mean Corpuscular Hemoglobin Concent 30.6 L Red Cell Distribution Width 15.9 H Platelet Count 419 H Mean Platelet Volume 9.1 Neutrophils % 79.7 H Lymphocytes % 9.2 L Monocytes % 8.4 Eosinophils % 1.7 Basophils % 0.4 Nucleated Red Blood Cells % 0.0 Neutrophils # 12.8 H Lymphocytes # 1.5 Monocytes # 1.4 H Eosinophils # 0.3 Basophils # 0.1 Nucleated Red Blood Cells # 0.0 Blood Urea Nitrogen 18 Creatinine 0.49 Medications Medications Current Medications Ondansetron HCl (Zofran Inj) 4 mg Q6 PRN IV NAUSEA AND/OR VOMITING Last administered on 12/09/16 13:19; Admin Dose 4 MG; Start 09/26/16 at 22:30 Collagenase (Santyl) 1 applic DAILY TOP Last administered on 12/13/16 09:10; Admin Dose 1 APPLIC; Start 09/27/16 at 09:00 Collagenase (Santyl) 1 applic PRN PRN TOP SOILED OR DISLODGED DRESSING; Start 09/27/16 at 05:00 Lansoprazole (Prevacid) 30 mg DAILY@06 GTB Last administered on 12/13/16 06:06 ; Admin Dose 30 MG; Start 09/28/16 at 06:00 Cromolyn Sodium (Nasalcrom) 1 spray QID NASAL Last administered on 12/13/16 09 :11; Admin Dose 1 SPRAY; Start 09/29/16 at 11:02 Phenol (Cepastat Lozenge) 1 lozenge Q2H PRN MT SORE THROAT Last administered on 11/02/16 01:02; Admin Dose 1 LOZENGE; Start 10/01/16 at 19:00 IV Flush (NS 10 ml) 10 ml PRN PRN IV IV PROTOCOL Last administered on 11/17/16 03:20; Admin Dose 10 ML; Start 10/02/16 at 19:00 Hydromorphone HCl (Dilaudid) 0.5 mg Q4H PRN IV PAIN Last administered on 13:20; Admin Dose 0.5 MG; Start 10/06/16 at 18:30 Potassium Chloride (Potassium Chloride Pwd/Soln) 20 meq DAILY GTB Last administered on 12/13/16 09:10; Admin Dose 20 MEQ; Start 10/30/16 at 12:00 Acetaminophen (Tylenol Liquid) 650 mg Q6H PRN PEG PAIN AND OR ELEVATED TEMP Last administered on 12/09/16 13:19; Admin Dose 650 MG; Start 11/16/16 at 20:04 Alprazolam (Xanax) 0.5 mg Q12H PRN PEG ANXIETY Last administered on 12/08/16 00:55; Admin Dose 0.5 MG; Start 11/16/16 at 20:30 Ascorbic Acid (Vitamin C) 500 mg BID PEG Last administered on 12/13/16 09:10; Admin Dose 500 MG; Start 11/16/16 at 21:00 Atorvastatin Calcium (Lipitor) 20 mg QHS PEG Last administered on 12/12/16 21: 39; Admin Dose 20 MG; Start 11/16/16 at 21:00 Diazepam (Valium) 10 mg DAILY PEG Last administered on 12/13/16 09:21; Admin Dose 10 MG; Start 11/17/16 at 09:00 Duloxetine HCl (Cymbalta) 20 mg DAILY PEG Last administered on 12/13/16 09:10 ; Admin Dose 20 MG; Start 11/17/16 at 09:00 Lactobacillus Acidophilus (Florajen3 Capsule) 1 each TID PEG Last administered on 12/13/16 09:10; Admin Dose 1 EACH; Start 11/16/16 at 21:00 Promethazine HCl/ Codeine (Phenergan/ Codeine) 10 ml BID PRN PEG COUGH Last administered on 11/30/16 09:36; Admin Dose 10 ML; Start 11/16/16 at 20:00 Zolpidem Tartrate (Ambien) 5 mg QHS PRN PEG INSOMNIA; Start 11/16/16 at 20:00 Docusate Sodium (Colace Liquid Cup) 100 mg Q12 PRN GTB CONSTIPATION; Start 11/16 at 20:00 Oxycodone HCl (Roxicodone) 10 mg Q4H PO Last administered on 12/13/16 09:22; Admin Dose 10 MG; Start 11/20/16 at 17:30 Midodrine (Proamatine) 2.5 mg TID@08,12,17 NGT Last administered on 12/12/16 18:11; Admin Dose 2.5 MG; Start 11/24/16 at 18:33 Furosemide (Lasix) 20 mg DAILY GTB Last administered on 12/13/16 09:09; Admin Dose 20 MG; Start 12/01/16 at 09:00 Metoprolol Tartrate 12.5 mg 12.5 mg BID PO Last administered on 12/13/16 09:10 ; Admin Dose 12.5 MG; Start 12/03/16 at 21:00 Vancomycin HCl (Vancocin) 100 ml @ 100 mls/hr Q12H IVPB Last administered on 06:05; Admin Dose 100 MLS/HR; Start 12/08/16 at 06:00 Miscellaneous Information (*Rx Drug Level Order Reminder*) 1 ONCE ONCE XX ; Start 12/13/16 at 17:00; Stop 12/13/16 at 17:01 RUBIN MAYEN NP Dec 13, 2016 13:06
--- NOTE | 2016-12-13 13:51 | RADRPT ---
PROCEDURE: Ultrasound guidance for placement of needle in right upper extremity vein. CLINICAL INDICATION: Venous access. TECHNIQUE: Limited sonography of the right upper extremity was performed. Ultrasound images were recorded and stored in the patient's medical record. COMPARISON: None. FINDINGS: The ultrasound images demonstrate a patent right upper extremity vein. The PICC line was inserted b y the PICC line nurse. IMPRESSION: 1. Ultrasound guidance for a needle placement in a right upper extremity vein. 2. The visualized right upper extremity vein is patent. RPTAT: QQ .Eduardo Silva MD, MD Date Time Electronically viewed and signed by .Eduardo Silva MD, MD on 12/13/2016 13:51 .R/
--- NOTE | 2016-12-13 14:32 | RADRPT ---
PROCEDURE: XR Chest. CLINICAL INDICATION: Check Line Placement TECHNIQUE: Single frontal view of the chest was obtained. COMPARISON: Chest x-ray from 12/01/2016 FINDINGS: A tracheostomy tube is again noted. A right-sided PICC line is noted with its tip curled in the right subclavian vein. There is stable mild cardiomegaly. There is mild pulmonary vascular congestion. The aortic arch is calcified. A consolidation is again noted in the lateral aspect of the left mid to lower lung zone as well as a left pleural effusion, both of which are not significantly changed compared to the prior chest x-ra y from 12/01/2016. IMPRESSION: Interval placement of a right-sided PICC line with its tip curled in the right subclavian vein. Stable mild cardiomegaly and mild pulmonary vascular congestion. Left lung consolidation and small pleural effusion are not significantly changed. RPTAT: EE Physician Raghu Date Time Electronically viewed and signed by Physician Raghu on 12/13/2016 14:32 RA/
--- NOTE | 2016-12-13 14:34 | RADRPT ---
PROCEDURE: XR Chest. CLINICAL INDICATION: Check Line Placement TECHNIQUE: Single frontal view of the chest was obtained. COMPARISON: Chest x-ray from 12/13/2016 at 13:18 hours FINDINGS: A right-sided PICC line seen previously has been advanced and is now curled in the mid SVC. Other findings are unchanged. IMPRESSION: Right-sided PICC line is now curled in the mid SVC. Recommend repositioning. RPTAT: EE Physician Raghu Date Time Electronically viewed and signed by Iglesia Carlson Physician on 12/13/2016 14:34 RA/
--- NOTE | 2016-12-13 14:48 | PN ---
Date/Time of Note Date/Time of Note DATE: 12/13/16 TIME: 14:39 Assessment/Plan Lines/Catheters IV Catheter Type (from Nrs): PICC Line George in Place (from Nrs): Yes Assessment/Plan Chief Complaint/Hosp Course 1.. Multiple decubitus ulcers with debris. Sacrococcygeal ulcer s/p exc boris . wound culture 10/23: ACINETOBACTER BAUMANNII, ESCHERICHIA COLI (ESBL), PROTEUS MIRABILIS; wound culture (12/13) gram - rods; on wound vac; pictures reviewed: good wound healing progress no debridement needed at this time - Continue wound vac and local care - abx vanco -Offload -Optimize nutrition via Gtube -Vitamin C 2. Leukocytosis: WBC increased, however afebrile x 24 hours; staph bacteremia; repeat blood cultures on 12/07 negative; urine cultures negative; Decubitus ulcer as above -continue to monitor -abx per ID 3. 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 S/P cardiac arrest; now vent dependent with tube feedings 5. 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 Anemia: Normocytic anemia; 2/2 chronic disease + iron deficiency vs infection ; H/H improved; s/p prbc transfusion - Continue to monitor and transfuse as needed - Continue iron supplements 7. Acute on chronic diastolic heart failure -Judicious fluid management -Continue meds -Cardiac optimization 8. Thrombocytosis: likely 2/2 infection -monitor -continue abx Hypotension with Hypertension history; improved -on midodrine 9. Chronic urinary retention with George 10. Depression. -Medical management 11. Hypothyroidism by history. -Synthroid 10. Chronic pain syndrome. Continue pain management. Patient seen and examined in collaboration with Dr. Alex Sinclair Problems: Subjective 24 Hr Interval Summary pt non-verbal (able to commuicate nonverbally, tracks and responds with head nodding/shaking and gesturing); picc line placement today Constitutional: no complaints (chest pain, headaches, nausea/vomiting/diarrhea , dizziness or sz), No chills, No cough (vent), No febrile, No shortness of breath Pain Control: well controlled Exam/Review of Systems Vital Signs Vitals Vital Signs Date Time Temp Pulse Resp B/P Pulse Ox O2 Delivery O2 Flow Rate FiO2 12/13/16 12:27 105 12/13/16 11:42 23 99 30 12/13/16 07:50 99.4 101/65 12/12/16 14:39 Room Air Intake and Output 12/12/16 12/12/16 12/13/16 15:00 23:00 07:00 Intake Total 920 ml Output Total 1850 ml 800 ml Balance -1850 ml 120 ml Exam Free Text/Dictation Constitutional: alert, non-verbal (trached), oriented, No distress Psych: nl mood/affect, no complaints Head: atraumatic, normocephalic Eyes: nl conjunctiva, nl lids, nl sclera ENMT: mucosa pink and moist, nl external ears & nose, nl lips & teeth Neck: non-tender, other (tracheostomy, non-reddened, no drainage noted), supple Respiratory: diminished breath sounds Cardiovascular: nl pulses, regular rate and rhythm Gastrointestinal: non-tender, other (gtube, site non-tender, non-reddened), soft Musculoskeletal: nl extremities to inspection Extremities: normal pulses Neurological: nl mental status, No nl strength (gen weakness) Skin: No rash; wounds (wound vac on) Results Result Diagram: 12/13/1672112/13/16 0722 JERRY SAHU NP Dec 13, 2016 14:48
--- NOTE | 2016-12-13 15:01 | CONS ---
Date/Time of Note Date/Time of Note DATE: 12/13/16 TIME: 15:00 Assessment/Plan Assessment/Plan Chief Complaint/Hosp Course Left lung squamous carcinoma. The patient is not a candidate for chemotherapy. Anemia of chronic disease. post 12 u prbc monitor blood count closely transfuse as needed to keep HB above 8 Acute respiratory insufficiency requiring BiPAP. trach -per daughter's wishes Acute shock, septic versus hypovolemic. tachycardia with episode of SVT. Chronic obstructive pulmonary disease. Dysphagia with G-tube. Continue current G-tube feeding. Hypothyroidism. Continue Synthroid. Problems: Consultation Date/Type/Reason Admit Date/Time Sep 26, 2016 at 20:07 Initial Consult Date 10/19/16 Type of Consultation: HEMEON Referring Provider: DRE LOBATO MD 24 HR Interval Summary Free Text/Dictation all noted no new events Exam/Review of Systems Vital Signs Vitals Vital Signs Date Time Temp Pulse Resp B/P Pulse Ox O2 Delivery O2 Flow Rate FiO2 12/13/16 14:41 92 22 99 30 12/13/16 07:50 99.4 101/65 12/12/16 14:39 Room Air Intake and Output 12/12/16 12/12/16 12/13/16 15:00 23:00 07:00 Intake Total 920 ml Output Total 1850 ml 800 ml Balance -1850 ml 120 ml Exam Constitutional: alert Neck: other (trach intact) Respiratory: clear to auscultation, normal air movement Cardiovascular: nl pulses Gastrointestinal: soft Musculoskeletal: muscle weakness Extremities: normal pulses Neurological: other Results Result Diagram: 12/13/16 0722 12/13/16 0722 Results 24 hrs Laboratory Tests Test 12/13/16 07:22 White Blood Count 16.1 H Red Blood Count 3.45 L Hemoglobin 9.1 L Hematocrit 29.7 L Mean Corpuscular Volume 86.1 Mean Corpuscular Hemoglobin 26.4 L Mean Corpuscular Hemoglobin Concent 30.6 L Red Cell Distribution Width 15.9 H Platelet Count 419 H Mean Platelet Volume 9.1 Neutrophils % 79.7 H Lymphocytes % 9.2 L Monocytes % 8.4 Eosinophils % 1.7 Basophils % 0.4 Nucleated Red Blood Cells % 0.0 Neutrophils # 12.8 H Lymphocytes # 1.5 Monocytes # 1.4 H Eosinophils # 0.3 Basophils # 0.1 Nucleated Red Blood Cells # 0.0 Blood Urea Nitrogen 18 Creatinine 0.49 Medications Medications Current Medications Ondansetron HCl (Zofran Inj) 4 mg Q6 PRN IV NAUSEA AND/OR VOMITING Last administered on 12/09/16 13:19; Admin Dose 4 MG; Start 09/26/16 at 22:30 Collagenase (Santyl) 1 applic DAILY TOP Last administered on 12/13/16 09:10; Admin Dose 1 APPLIC; Start 09/27/16 at 09:00 Collagenase (Santyl) 1 applic PRN PRN TOP SOILED OR DISLODGED DRESSING; Start 09/27/16 at 05:00 Lansoprazole (Prevacid) 30 mg DAILY@06 GTB Last administered on 12/13/16 06:06 ; Admin Dose 30 MG; Start 09/28/16 at 06:00 Cromolyn Sodium (Nasalcrom) 1 spray QID NASAL Last administered on 12/13/16 14 :16; Admin Dose 1 SPRAY; Start 09/29/16 at 11:02 Phenol (Cepastat Lozenge) 1 lozenge Q2H PRN MT SORE THROAT Last administered on 11/02/16 01:02; Admin Dose 1 LOZENGE; Start 10/01/16 at 19:00 IV Flush (NS 10 ml) 10 ml PRN PRN IV IV PROTOCOL Last administered on 11/17/16 03:20; Admin Dose 10 ML; Start 10/02/16 at 19:00 Hydromorphone HCl (Dilaudid) 0.5 mg Q4H PRN IV PAIN Last administered on 13:20; Admin Dose 0.5 MG; Start 10/06/16 at 18:30 Potassium Chloride (Potassium Chloride Pwd/Soln) 20 meq DAILY GTB Last administered on 12/13/16 09:10; Admin Dose 20 MEQ; Start 10/30/16 at 12:00 Acetaminophen (Tylenol Liquid) 650 mg Q6H PRN PEG PAIN AND OR ELEVATED TEMP Last administered on 12/09/16 13:19; Admin Dose 650 MG; Start 11/16/16 at 20:04 Alprazolam (Xanax) 0.5 mg Q12H PRN PEG ANXIETY Last administered on 12/08/16 00:55; Admin Dose 0.5 MG; Start 11/16/16 at 20:30 Ascorbic Acid (Vitamin C) 500 mg BID PEG Last administered on 12/13/16 09:10; Admin Dose 500 MG; Start 11/16/16 at 21:00 Atorvastatin Calcium (Lipitor) 20 mg QHS PEG Last administered on 12/12/16 21: 39; Admin Dose 20 MG; Start 11/16/16 at 21:00 Diazepam (Valium) 10 mg DAILY PEG Last administered on 12/13/16 09:21; Admin Dose 10 MG; Start 11/17/16 at 09:00 Duloxetine HCl (Cymbalta) 20 mg DAILY PEG Last administered on 12/13/16 09:10 ; Admin Dose 20 MG; Start 11/17/16 at 09:00 Lactobacillus Acidophilus (Florajen3 Capsule) 1 each TID PEG Last administered on 12/13/16 14:15; Admin Dose 1 EACH; Start 11/16/16 at 21:00 Promethazine HCl/ Codeine (Phenergan/ Codeine) 10 ml BID PRN PEG COUGH Last administered on 11/30/16 09:36; Admin Dose 10 ML; Start 11/16/16 at 20:00 Zolpidem Tartrate (Ambien) 5 mg QHS PRN PEG INSOMNIA; Start 11/16/16 at 20:00 Docusate Sodium (Colace Liquid Cup) 100 mg Q12 PRN GTB CONSTIPATION; Start 11/16 at 20:00 Oxycodone HCl (Roxicodone) 10 mg Q4H PO Last administered on 12/13/16 14:15; Admin Dose 10 MG; Start 11/20/16 at 17:30 Midodrine (Proamatine) 2.5 mg TID@,12,17 NGT Last administered on 12/12/16 18:11; Admin Dose 2.5 MG; Start 11/24/16 at 18:33 Furosemide (Lasix) 20 mg DAILY GTB Last administered on 12/13/16 09:09; Admin Dose 20 MG; Start 12/01/16 at 09:00 Metoprolol Tartrate 12.5 mg 12.5 mg BID PO Last administered on 12/13/16 09:10 ; Admin Dose 12.5 MG; Start 6/18/17 at 21:00 Vancomycin HCl (Vancocin) 100 ml @ 100 mls/hr Q12H IVPB Last administered on t 06:05; Admin Dose 100 MLS/HR; Start 12/08/16 at 06:00 Miscellaneous Information (*Rx Drug Level Order Reminder*) 1 ONCE ONCE XX ; Start 12/13/16 at 17:00; Stop 12/13/16 at 17:01 IV Flush (NS 10 ml) 10 ml PRN PRN IV FLUSH LINE; Start 12/13/16 at 14:30 DYLLAN CARRION MD Dec 13, 2016 15:00
--- NOTE | 2016-12-13 15:15 | RADRPT ---
PROCEDURE: XR Chest. CLINICAL INDICATION: Check PICC line position. TECHNIQUE: Single frontal view. COMPARISON: Prior study done earlier the same day. FINDINGS: There is a right arm PICC line with the tip in the lower superior vena cava. The tracheostomy tube is in satisfactory position. There is left basilar consolidation, unchanged. The heart size is normal. There is calcification in the aorta consistent with atherosclerosis. There is no pleural effusion. There is no pneumothorax. IMPRESSION: 1. Satisfactory position of right arm PICC line. 2. Tracheostomy tube. 3. Atherosclerosis. 4. Left basilar consolidation, unchanged. RPTAT: QQ .Edaurdo Silva MD, MD Date Time Electronically viewed and signed by .Eduardo Silva MD, on 12/13/2016 15:15 .R/
--- NOTE | 2016-12-13 17:21 | CONS ---
Date/Time of Note Date/Time of Note DATE: 12/13/16 TIME: 17:18 Assessment/Plan Assessment/Plan Additional Assessment/Plan 1. acute on chronic resp failure intubated on ventilator- not able to wean off s/p Tracheostomy 2. PEA s/p resuscitation 3. Hyponatremia multifactorial 4. Pneumonia. 3. Lung cancer. 4. History of Clostridium difficile colitis and recurrent urinary tract infection. 5. Unstageable sacral wound, status post debridement with wound VAC application. PLAN: conitnue IV abx, ID following, S/p Tracheostomy NO labs today, BUN/Cr normal will follow up Consultation Date/Type/Reason Admit Date/Time Sep 26, 2016 at 20:07 Type of Consultation: NEPHROLOGY Referring Provider: DRE LOBATO MD Exam/Review of Systems Vital Signs Vitals Vital Signs Date Time Temp Pulse Resp B/P Pulse Ox O2 Delivery O2 Flow Rate FiO2 12/13/16 16:31 106 12/13/16 15:58 16 103/71 98 12/13/16 14:41 30 12/13/16 07:50 99.4 12/12/16 14:39 Room Air Intake and Output 12/12/16 12/12/16 12/13/16 15:00 23:00 07:00 Intake Total 920 ml Output Total 1850 ml 800 ml Balance -1850 ml 120 ml Results Result Diagram: 12/13/1622 12/13/16 0722 Results 24 hrs Laboratory Tests Test 12/13/16 07:22 White Blood Count 16.1 H Red Blood Count 3.45 L Hemoglobin 9.1 L Hematocrit 29.7 L Mean Corpuscular Volume 86.1 Mean Corpuscular Hemoglobin 26.4 L Mean Corpuscular Hemoglobin Concent 30.6 L Red Cell Distribution Width 15.9 H Platelet Count 419 H Mean Platelet Volume 9.1 Neutrophils % 79.7 H Lymphocytes % 9.2 L Monocytes % 8.4 Eosinophils % 1.7 Basophils % 0.4 Nucleated Red Blood Cells % 0.0 Neutrophils # 12.8 H Lymphocytes # 1.5 Monocytes # 1.4 H Eosinophils # 0.3 Basophils # 0.1 Nucleated Red Blood Cells # 0.0 Blood Urea Nitrogen 18 Creatinine 0.49 Medications Medications Current Medications Ondansetron HCl (Zofran Inj) 4 mg Q6 PRN IV NAUSEA AND/OR VOMITING Last administered on 12/09/16 13:19; Admin Dose 4 MG; Start 09/26/16 at 22:30 Collagenase (Santyl) 1 applic DAILY TOP Last administered on 12/13/16 09:10; Admin Dose 1 APPLIC; Start 09/27/16 at 09:00 Collagenase (Santyl) 1 applic PRN PRN TOP SOILED OR DISLODGED DRESSING; Start 09/27/16 at 05:00 Lansoprazole (Prevacid) 30 mg DAILY@06 GTB Last administered on 12/13/16 06:06 ; Admin Dose 30 MG; Start 09/28/16 at 06:00 Cromolyn Sodium (Nasalcrom) 1 spray QID NASAL Last administered on 12/13/16 14 :16; Admin Dose 1 SPRAY; Start 09/29/16 at 11:02 Phenol (Cepastat Lozenge) 1 lozenge Q2H PRN MT SORE THROAT Last administered on 11/02/16 01:02; Admin Dose 1 LOZENGE; Start 10/01/16 at 19:00 IV Flush (NS 10 ml) 10 ml PRN PRN IV IV PROTOCOL Last administered on 11/17/16 03:20; Admin Dose 10 ML; Start 10/02/16 at 19:00 Hydromorphone HCl (Dilaudid) 0.5 mg Q4H PRN IV PAIN Last administered on 13:20; Admin Dose 0.5 MG; Start 10/06/16 at 18:30 Potassium Chloride (Potassium Chloride Pwd/Soln) 20 meq DAILY GTB Last administered on 12/13/16 09:10; Admin Dose 20 MEQ; Start 10/30/16 at 12:00 Acetaminophen (Tylenol Liquid) 650 mg Q6H PRN PEG PAIN AND OR ELEVATED TEMP Last administered on 12/09/16 13:19; Admin Dose 650 MG; Start 11/16/16 at 20:04 Alprazolam (Xanax) 0.5 mg Q12H PRN PEG ANXIETY Last administered on 12/08/16 00:55; Admin Dose 0.5 MG; Start 11/16/16 at 20:30 Ascorbic Acid (Vitamin C) 500 mg BID PEG Last administered on 12/13/16 09:10; Admin Dose 500 MG; Start 11/16/16 at 21:00 Atorvastatin Calcium (Lipitor) 20 mg QHS PEG Last administered on 12/12/16 21: 39; Admin Dose 20 MG; Start 11/16/16 at 21:00 Diazepam (Valium) 10 mg DAILY PEG Last administered on 12/13/16 09:21; Admin Dose 10 MG; Start 11/17/16 at 09:00 Duloxetine HCl (Cymbalta) 20 mg DAILY PEG Last administered on 12/13/16 09:10 ; Admin Dose 20 MG; Start 11/17/16 at 09:00 Lactobacillus Acidophilus (Florajen3 Capsule) 1 each TID PEG Last administered on 12/13/16 14:15; Admin Dose 1 EACH; Start 11/16/16 at 21:00 Promethazine HCl/ Codeine (Phenergan/ Codeine) 10 ml BID PRN PEG COUGH Last administered on 11/30/16 09:36; Admin Dose 10 ML; Start 11/16/16 at 20:00 Zolpidem Tartrate (Ambien) 5 mg QHS PRN PEG INSOMNIA; Start 11/16/16 at 20:00 Docusate Sodium (Colace Liquid Cup) 100 mg Q12 PRN GTB CONSTIPATION; Start 11/16 at 20:00 Oxycodone HCl (Roxicodone) 10 mg Q4H PO Last administered on 12/13/16 14:15; Admin Dose 10 MG; Start 11/20/16 at 17:30 Midodrine (Proamatine) 2.5 mg TID@08,12,17 NGT Last administered on 12/12/16 18:11; Admin Dose 2.5 MG; Start 11/24/16 at 18:33 Furosemide (Lasix) 20 mg DAILY GTB Last administered on 12/13/16 09:09; Admin Dose 20 MG; Start 12/01/16 at 09:00 Metoprolol Tartrate 12.5 mg 12.5 mg BID PO Last administered on 12/13/16 09:10 ; Admin Dose 12.5 MG; Start 12/03/16 at 21:00 Vancomycin HCl (Vancocin) 100 ml @ 100 mls/hr Q12H IVPB Last administered on 06:05; Admin Dose 100 MLS/HR; Start 12/08/16 at 06:00 IV Flush (NS 10 ml) 10 ml PRN PRN IV FLUSH LINE; Start 12/13/16 at 14:30 DIONNE SAUCEDA MD Dec 13, 2016 17:20
--- NOTE | 2016-12-13 18:41 | DS ---
Date/Time of Note Date/Time of Note DATE: 12/13/16 TIME: 18:37 Discharge Summary Admission/Discharge Info Admit Date/Time Sep 26, 2016 at 20:07 Discharge Date/Time Discharge Diagnosis - Recurrent sepsis with Staphylococcus bacteremia, continue vancomycin. - Status post tracheostomy by Dr. White ENT on 11/28. - Status post cardiopulmonary arrest. - Acute respiratory failure. - Left lung squamous carcinoma. The patient is not a candidate for chemotherapy. - Chronic obstructive pulmonary disease. Patient with long history of tobacco use. - Anemia of chronic disease. Continue to monitor hemoglobin and hematocrit. - Dysphagia with G-tube. - Hypothyroidism. Continue Synthroid. - Chronic pain. - Failure to thrive. 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 Also has c/o stated fever, c/o cough and urinary symptoms as well as sore throat. Patient was admitted under Dr Dozier for further evaluation and treatment. Hospital Course - Recurrent sepsis with Staphylococcus bacteremia, continue vancomycin. Dr. Coleman is following an infection disease consultation. - Status post tracheostomy by GABY Whitley on 11/28. - Status post cardiopulmonary arrest. - Acute respiratory failure. Continue breathing treatment, oxygen supply supplementation and bronchodilators. Dr. Lopez is following in pulmonology consultation. - Left lung squamous carcinoma. The patient is not a candidate for chemotherapy. Dr. Calvo is following in oncology consultation. - Chronic obstructive pulmonary disease. Patient with long history of tobacco use. - Anemia of chronic disease. Continue to monitor hemoglobin and hematocrit. - Dysphagia with G-tube. Continue G-tube feeding, monitor residual. Continue aspiration precautions. - Hypothyroidism. Continue Synthroid. - Chronic pain. - Failure to thrive. Home Meds Active Scripts Pantoprazole* (Pantoprazole*) 40 Mg Tablet., 40 MG PO BID@,18 for 30 Days Prov:JILL MYERS 01/04/16 Losartan Potassium* (Cozaar*) 50 Mg Tablet, 50 MG PO DAILY for 30 Days, TAB Prov:JILL MYERS 01/04/16 Ferrous Sulfate* (Ferrous Sulfate*) 325 Mg Tabec, 325 MG PO BID for 30 Days, TAB Prov:JILL MYERS 01/04/16 Duloxetine Hcl* (Cymbalta*) 20 Mg Capsule.dr, 20 MG PO DAILY for 30 Days Prov:JILL MYERS 01/04/16 Docusate Sodium* (Colace*) 100 Mg Capsule, 100 MG PO Q12H Y for CONSTIPATION, # 30 CAP Prov:JILL MYERS 01/04/16 Doxazosin Mesylate* (Cardura*) 2 Mg Tablet, 2 MG PO QPM for 30 Days, TAB Prov:JILL MYERS 01/04/16 Reported Medications Alprazolam* (Xanax*) 0.5 Mg Tab, 0.5 MG PO Q12 Y for ANXIETY, TAB 05/23/16 Levothyroxine Sodium* (Synthroid*) 125 Mcg Tablet, 125 MCG PO BEFORE BREAKFAST, #30 TAB 05/23/16 Clopidogrel Bisulfate (Clopidogrel) 75 Mg Tablet, 75 MG PO DAILY, #30 TAB 05/23/16 Metoprolol Tartrate* (Lopressor*) 50 Mg Tab, 50 MG PO BID, #60 TAB hold if SBP <110 or HR <60 05/23/16 Atorvastatin Calcium* (Atorvastatin Calcium*) 20 Mg Tablet, 20 MG PO QHS, #30 TAB 05/23/16 Lactobacillus Acidoph/Bulgaricus* (Floranex*) 1 Each Tablet, 1 TAB.CHEW PO TID, TAB.CHEW 05/23/16 Gabapentin* (Gabapentin*) 300 Mg Capsule, 300 MG PO TID, #90 CAP 05/23/16 Famotidine* (Famotidine*) 20 Mg Tablet, 20 MG PO DAILY, #30 TAB 05/23/16 Ipratropium-Albuterol (Ipratropium-Albuterol) 0.5-3 Mg/3 Ml Ampul.neb, 3 ML INHALATION Q8 Y for SHORTNESS OF BREATH, #30 VIAL 05/23/16 Ascorbic Acid* (Ascorbic Acid*) 500 Mg/5 Ml Syrup, 500 MG PO BID, #300 ML 05/23/16 Zolpidem Tartrate* (Ambien*) 5 Mg Tablet, 5 MG PO QHS Y for INSOMNIA, #30 TAB 05/23/16 Morphine Sulfate* (Ms Contin*) 60 Mg Tablet.sa, 60 MG PO TID, TAB.SA 01/31/16 Diazepam* (Diazepam*) 10 Mg Tablet, 10 MG PO DAILY, TAB 01/31/16 Primary Care Provider Bashir Dozier MD Time spent on discharge: > 30 minutes Pending Labs Laboratory Tests Test 12/13/16 07:22 12/13/16 17:05 White Blood Count 16.110^3/ul (4.8-10.8) Red Blood Count 3.4510^6/ul (4.20-5.40) Hemoglobin 9.1g/dl (12.0-16.0) Hematocrit 29.7% (37.0-47.0) Mean Corpuscular Volume 86.1fl (82.0-101.0) Mean Corpuscular Hemoglobin 26.4pg (29.0-33.0) Mean Corpuscular Hemoglobin Concent 30.6g/dl (32.0-37.0) Red Cell Distribution Width 15.9% (11.5-14.5) Platelet Count 68259^3/UL (140-415) Mean Platelet Volume 9.1fl (7.4-10.4) Neutrophils % 79.7% (39.0-77.0) Lymphocytes % 9.2% (15.0-51.0) Monocytes % 8.4% (0.0-11.0) Eosinophils % 1.7% (0.0-7.0) Basophils % 0.4% (0.0-2.0) Nucleated Red Blood Cells % 0.0/100WBC (0.0-0.0) Neutrophils # 12.810^3/ul (1.6-7.5) Lymphocytes # 1.510^3/ul (0.8-2.9) Monocytes # 1.410^3/ul (0.3-0.9) Eosinophils # 0.310^3/ul (0.0-0.5) Basophils # 0.110^3/ul (0.0-0.1) Nucleated Red Blood Cells # 0.010^3/ul (0.0-0.0) Blood Urea Nitrogen 18mg/dl (7-20) Creatinine 0.49mg/dl (0.44-1.00) Vancomycin Level Trough 15.4ug/ml (10.0-20.0) REBECCA ISLAS Dec 13, 2016 18:41
--- NOTE | 2016-12-14 23:07 | CONS ---
Date/Time of Note Date/Time of Note DATE: 12/14/16 TIME: 09:06 Assessment/Plan Assessment/Plan Chief Complaint/Hosp Course Left lung squamous carcinoma. The patient is not a candidate for chemotherapy. Anemia of chronic disease. post 12 u prbc monitor blood count closely transfuse as needed to keep HB above 8 Acute respiratory insufficiency requiring BiPAP. trach -per daughter's wishes Acute shock, septic versus hypovolemic. tachycardia with episode of SVT. Chronic obstructive pulmonary disease. Dysphagia with G-tube. Continue current G-tube feeding. Hypothyroidism. Continue Synthroid. ok to dc Problems: Consultation Date/Type/Reason Admit Date/Time Sep 26, 2016 at 20:07 Initial Consult Date 10/19/16 Type of Consultation: hemeon Referring Provider: DRE LOBATO MD 24 HR Interval Summary Free Text/Dictation all noted for dc today Exam/Review of Systems Vital Signs Vitals Vital Signs Date Time Temp Pulse Resp B/P Pulse Ox O2 Delivery O2 Flow Rate FiO2 12/13/16 17:50 97 22 98 30 12/13/16 15:58 103/71 12/13/16 07:50 99.4 12/12/16 14:39 Room Air Intake and Output 12/13/16 12/13/16 12/14/16 15:00 23:00 07:00 Intake Total 100 ml 800 ml Output Total 900 ml Balance 100 ml -100 ml Exam Constitutional: alert Neck: other (trach intact) Respiratory: clear to auscultation, normal air movement Cardiovascular: nl pulses Gastrointestinal: soft Musculoskeletal: muscle weakness Extremities: normal pulses Neurological: other Results Result Diagram: 12/13/16 0722 12/13/16 0722 DYLLAN CARRION MD Dec 14, 2016 23:07
== END 2016-12-13 19:05 | DRG 3 ==
LOC: E/R 19:57 → PP2 20:07 → ICU 11-06 12:39 → MS4 11-07 19:03 → ICU 11-12 03:04 → TEL 11-22 18:55 → ICU 11-23 03:00 → TEL 12-01 01:40
PROVIDERS: ADMIT Internal Medicine; ATTEND Internal Medicine
PROC: 30243N1 Transfusion of Nonautologous Red Blood Cells into Central Vein, Percutaneous Approach (ICD-10-PCS; 2016-09-26)
PROC: 0DP63UZ Removal of Feeding Device from Stomach, Percutaneous Approach (ICD-10-PCS; 2016-09-30)
PROC: 0DH63UZ Insertion of Feeding Device into Stomach, Percutaneous Approach (ICD-10-PCS; 2016-09-30)
PROC: 02HV33Z Insertion of Infusion Device into Superior Vena Cava, Percutaneous Approach (ICD-10-PCS; 2016-10-02)
PROC: B548ZZA Ultrasonography of Superior Vena Cava, Guidance (ICD-10-PCS; 2016-10-02)
PROC: 0QB10ZZ Excision of Sacrum, Open Approach (ICD-10-PCS; 2016-10-27)
PROC: 5A09357 Assistance with Respiratory Ventilation, Less than 24 Consecutive Hours, Continuous Positive Airway Pressure (ICD-10-PCS; 2016-11-14)
PROC: 4A133R1 Monitoring of Arterial Saturation, Peripheral, Percutaneous Approach (ICD-10-PCS; 2016-11-14)
PROC: 5A1955Z Respiratory Ventilation, Greater than 96 Consecutive Hours (ICD-10-PCS; 2016-11-23)
PROC: 0BH17EZ Insertion of Endotracheal Airway into Trachea, Via Natural or Artificial Opening (ICD-10-PCS; 2016-11-23)
PROC: 5A12012 Performance of Cardiac Output, Single, Manual (ICD-10-PCS; 2016-11-23)
PROC: 0B113F4 Bypass Trachea to Cutaneous with Tracheostomy Device, Percutaneous Approach (ICD-10-PCS; principal; 2016-11-28 07:30)
PROC: 02HV33Z Insertion of Infusion Device into Superior Vena Cava, Percutaneous Approach (ICD-10-PCS; 2016-12-13)
PROC: B548ZZA Ultrasonography of Superior Vena Cava, Guidance (ICD-10-PCS; 2016-12-13)
DX: A41.1 Sepsis due to other specified staphylococcus (principal); R65.21 Severe sepsis with septic shock; E41 Nutritional marasmus; I50.33 Acute on chronic diastolic (congestive) heart failure; G93.1 Anoxic brain damage, not elsewhere classified; G92 Toxic encephalopathy; J18.8 Other pneumonia, unspecified organism; J96.21 Acute and chronic respiratory failure with hypoxia; L89.154 Pressure ulcer of sacral region, stage 4; I46.9 Cardiac arrest, cause unspecified; J96.22 Acute and chronic respiratory failure with hypercapnia; N17.9 Acute kidney failure, unspecified; B37.0 Candidal stomatitis; C79.9 Secondary malignant neoplasm of unspecified site; C34.92 Malignant neoplasm of unspecified part of left bronchus or lung; E87.1 Hypo-osmolality and hyponatremia; N39.0 Urinary tract infection, site not specified; J44.1 Chronic obstructive pulmonary disease with (acute) exacerbation; I47.1 Supraventricular tachycardia; I11.0 Hypertensive heart disease with heart failure; A41.81 Sepsis due to Enterococcus; F17.210 Nicotine dependence, cigarettes, uncomplicated; D63.8 Anemia in other chronic diseases classified elsewhere; R33.9 Retention of urine, unspecified; Z68.20 Body mass index [BMI] 20.0-20.9, adult; R13.10 Dysphagia, unspecified; E03.9 Hypothyroidism, unspecified; I07.1 Rheumatic tricuspid insufficiency; R79.89 Other specified abnormal findings of blood chemistry; M79.89 Other specified soft tissue disorders; F32.9 Major depressive disorder, single episode, unspecified; D50.9 Iron deficiency anemia, unspecified; G89.4 Chronic pain syndrome; E87.6 Hypokalemia; I27.2 Other secondary pulmonary hypertension; E83.42 Hypomagnesemia; Z88.0 Allergy status to penicillin; Z88.4 Allergy status to anesthetic agent; R62.7 Adult failure to thrive; L89.90 Pressure ulcer of unspecified site, unspecified stage; M62.50 Muscle wasting and atrophy, not elsewhere classified, unspecified site; Z98.1 Arthrodesis status; F03.90 Unspecified dementia, unspecified severity, without behavioral disturbance, psychotic disturbance, mood disturbance, and anxiety; Z86.73 Personal history of transient ischemic attack (TIA), and cerebral infarction without residual deficits
CPT/HCPCS: 31500; 36415; 36430; 36569; 36600; 71010; 73200; 74230; 76705; 76937; 80048; 80053; 80076; 80150; 80202; 81001; 81003; 82270; 82565; 82728; 82803; 82962; 83540; 83605; 83735; 84100; 84295; 84443; 84450; 84460; 84484; 84520; 85025; 85049; 85610; 85670; 85730; 86850; 86900; 86901; 86920; 87040; 87045; 87070; 87081; 87086; 92526; 92610; 92611; 92950; 93005; 93306; 93970; 94002; 94003; 94640; 94660; 94664; 94770; 96365; 96366; 96375; 97110; 97163; 97530; C1769; C9113; J0171; J0278; J0743; J1170; J1940; J2185; J2250; J2270; J2370; J2405; J2997; J3370; J3475; J3480; J7030; J7040; J7042; J7050; J7060; P9016

== ENCOUNTER 2017-02-01 12:26 | Inpatient (IN) | payer MEDICARE, OTHER ==
[~2017-02-01] VITALS: Ht 167.6 cm; Wt 67.2 kg
[~2017-02-01 12:26] MED LIST changes: -ACID1TAB14 PO; -ALPR0.5T PO; +ASCO500S2 GTB; -ASCO500S2 PO; -ATOR20TA38 PO; -CLOP75TA27 PO; -DIAZ10TA4 PO; +DIAZ5TAB4 GTB; -DOCU-144 PO; +DOCU-159 GTB; -DOXA2TAB61 PO; +DULO20CA43 GTB; -DULO20CA43 PO; -FAMO20TA18 PO; -FER325 PO; +FURO20TA3 GTB; -GABA300C16 PO; +LACTINEX GTB; -LEVO125T PO; -LOSA50TA2 PO; -METO-429 PO; -MORP60TA37 PO; +MULTI GTB; -PANT40TA4 PO; +ZINC220T GTB; -ZOLP5TAB PO
[2017-02-01] MEDS ORDERED: MULTI GTB (12:56)
[2017-02-01] MEDS ORDERED: ZINC220T GTB (12:57)
[2017-02-01] MEDS ORDERED: AMIN30LI GTB (12:58)
[2017-02-01] MEDS ORDERED: ASCO500S2 GTB (12:59)
[2017-02-01] MEDS ORDERED: SOD CHLORIDE 0.9% 1,000 ML IV ONE (13:00)
[2017-02-01] MEDS ORDERED: DIL1I IV (13:02)
[2017-02-01] MEDS ORDERED: FURO-110 GTB (13:03)
[2017-02-01] MEDS ORDERED: DOCU-159 GTB (13:03)
[2017-02-01] MEDS ORDERED: LACTINEX GTB (13:04)
[2017-02-01] MEDS ORDERED: DIAZ5TAB4 GTB (13:05)
[2017-02-01] MEDS ORDERED: IPRA3AMP INHALATION (13:06)
[2017-02-01] MEDS ORDERED: DULO20CA43 GTB (13:06)
--- NOTE | 2017-02-01 13:18 | ERA ---
ER Documentation Chief Complaint Date/Time DATE: 02/01/17 TIME: 13:08 Chief Complaint Hypotension, fever HPI This is a 66-year-old female with a past medical history of lung cancer, chronic respiratory failure status post tracheostomy and PEG tube placement, chronic stage IV sacral decubitus ulceration with chronic back pains, who is presenting with 2 days of fever, fatigue and generally not feeling well. The patient's history is limited as she is unable to speak secondary to her tracheostomy. According to the rehab facility documentation, the patient presents with a low-grade fever of 99F, decreased blood pressure at 80/51, leukocytosis with a white count of 15.1 and anemia with a hemoglobin of 7.3. The patient was given 500 mL of fluids prior to transfer. She has remained on her standard vent settings. The patient denies headache or changes in vision. She denies any chest pain or difficulty breathing. She denies any abdominal pain. She is able to move all extremities on command. ROS All systems reviewed and are negative except as per history of present illness. Medications Home Meds Reported Medications Ipratropium-Albuterol (Ipratropium-Albuterol) 0.5-3 Mg/3 Ml Ampul.neb, 3 ML INHALATION Q8 Y for WHEEZING AND SOB, #30 VIAL 02/01/17 Duloxetine Hcl* (Cymbalta*) 20 Mg Capsule.dr, 20 MG GTB DAILY, CAP 02/01/17 Diazepam* (Diazepam*) 5 Mg Tablet, 5 MG GTB DAILY Y for ANXIETY, TAB 02/01/17 Lactobacillus Acidophilus* (Lactinex*) 1 Tab Chew, 1 TAB GTB TID, TAB 02/01/17 Furosemide* (Lasix*) 20 Mg Tablet, 20 MG GTB DAILY, TAB 02/01/17 Docusate Sodium* (Docusate Sodium*) 100 Mg Capsule, 100 MG GTB BID Y for CONSTIPATION, #60 CAP 02/01/17 Hydromorphone Hcl* (Dilaudid* Inj) 1 Mg/Ml Soln, 0.5 MG IV Q4 Y for SEVERE PAIN LEVEL 7-10, AMP 02/01/17 Ascorbic Acid* (Vitamin C* Liq) 500 Mg/5 Ml Syrup, 500 MG GTB BID, ML 02/01/17 Amino Acids/Protein Hydrolys (PRO-STAT LIQUID) 30 Ml Liquid.pkt, 30 ML GTB DAILY SUGAR FREE 02/01/17 Zinc Sulfate* (Zinc Sulfate*) 220 Mg Tablet, 220 MG GTB DAILY, TAB 02/01/17 Multivitamins* (Theragran*) 1 Tab Tab, 1 TAB GTB DAILY, TAB 02/01/17 Discontinued Reported Medications Ipratropium-Albuterol (Ipratropium-Albuterol) 0.5-3 Mg/3 Ml Ampul.neb, 3 ML INHALATION Q8H, #30 VIAL 01/03/17 Lactobacillus Acidophilus* (Lactinex*) 1 Tab Chew, 1 TAB GTB TID, TAB STOP DATE 01/12/17 01/03/17 Furosemide* (Furosemide*) 20 Mg Tablet, 20 MG GTB DAILY, #60 TAB STOP DATE 01/12/17 01/03/17 Duloxetine Hcl* (Cymbalta*) 20 Mg Capsule.dr, 20 MG GTB DAILY, CAP STOP DATE 01/12/17 01/03/17 Diazepam* (Diazepam*) 5 Mg Tablet, 5 MG GTB DAILY, TAB STOP DATE 01/12/17 01/03/17 Docusate Sodium* (Docusate Sodium*) 100 Mg Capsule, 100 MG GTB Q12H, #60 CAP STOP DATE 01/12/17 01/03/17 Ascorbic Acid* (Vitamin C* Liq) 500 Mg/5 Ml Syrup, 5 ML GTB BID, ML STOP DATE 01/14/17 01/03/17 Multivitamins* (Theragran*) 1 Tab Tab, 1 TAB GTB DAILY, TAB 01/03/17 Zinc Sulfate* (Zinc Sulfate*) 220 Mg Tablet, 220 MG GTB DAILY, TAB 01/03/17 Allergies Allergies: Coded Allergies: Penicillins (Verified Allergy, Intermediate, RASH, 02/01/17) aspirin (Verified Adverse Reaction, Mild, GI DISTRESS, 02/01/17) ibuprofen (Verified Adverse Reaction, Mild, GI DISTRESS, 02/01/17) PMhx/Soc History of Surgery: Yes (PEG and Trache placement) Anesthesia Reaction: No Hx Neurological Disorder: No Hx Respiratory Disorders: Yes (Lung CA, Chronic Mech. Vent) Hx Cardiac Disorders: Yes (HTN) Hx Psychiatric Problems: No Hx Miscellaneous Medical Probl: Yes (CONTRACTURES) Hx Alcohol Use: No Hx Substance Use: No Hx Tobacco Use: No FmHx Limited secondary to patient's status. Family History: No diabetes Physical Exam Vitals Vital Signs Date Time Temp Pulse Resp B/P Pulse Ox O2 Delivery O2 Flow Rate FiO2 02/01/17 15:07 102 18 100 40 02/01/17 14:00 92 22 90/66 100 Mechanical Ventilator 02/01/17 13:45 93 19 93/86 100 Mechanical Ventilator 02/01/17 12:35 99.1 93 19 88/66 100 02/01/17 12:31 99.1 18 88/66 100 Mechanical Ventilator Physical Exam Const: No apparent distress, not diaphoretic, awake and alert Head: Atraumatic, dry flaky skin Eyes: Normal Conjunctiva ENT: Normal External Ears, Nose, dry oral mucous membranes. Neck: Full range of motion..~ No meningismus. Resp: Bibasilar rales Cardio: Regular rhythm, tachycardia, no murmurs Abd: Soft, non distended, mild generalized abdominal tenderness. Normal bowel sounds Skin: Large stage IV sacral decubitus ulcer without obvious purulence. Mild perineal erythema Back: No midline or flank tenderness Ext: No cyanosis, or edema Neur: Awake and alert, unable to state orientation questions, follows commands in all 4 extremities, sensation intact Result Diagram: 02/01/17 1320 02/01/17 1320 Results 24 hrs Laboratory Tests Test 02/01/17 13:20 02/01/17 13:30 02/01/17 15:05 White Blood Count 19.710^3/ul Red Blood Count 2.3410^6/ul Hemoglobin 6.5g/dl Hematocrit 21.4% Mean Corpuscular Volume 91.5fl Mean Corpuscular Hemoglobin 27.8pg Mean Corpuscular Hemoglobin Concent 30.4g/dl Red Cell Distribution Width 16.5% Platelet Count 10270^3/UL Mean Platelet Volume 9.1fl Neutrophils % % Segmented Neutrophils % (Manual) 72% Band Neutrophils % (Manual) 1% Lymphocytes % % Lymphocytes % (Manual) 15% Monocytes % % Monocytes % (Manual) 8% Eosinophils % % Eosinophils % (Manual) 4% Basophils % % Nucleated Red Blood Cells % 0.0/100WBC Neutrophils # (Manual) 1410^3/ul Band Neutrophils # 0.110^3/ul Absolute Lymphocytes (Manual) 2.910^3/ul Lymphocytes # 10^3/ul Monocytes # 10^3/ul Absolute Monocytes (Manual) 1.510^3/ul Eosinophils # 10^3/ul Basophils # 10^3/ul Nucleated Red Blood Cells # 10^3/ul Platelet Estimate NORMAL Hypochromasia 2+ Anisocytosis 1+ Microcytosis 1+ Prothrombin Time 16.7Sec Prothrombin Time Ratio 1.3 INR International Normalized Ratio 1.34 Activated Partial Thromboplast Time 46.1Sec Sodium Level 136mmol/L Potassium Level 4.0mmol/L Chloride Level 90mmol/L Carbon Dioxide Level 35mmol/L Anion Gap 15 Blood Urea Nitrogen 43mg/dl Creatinine 0.61mg/dl Glucose Level 95mg/dl Lactic Acid Level 1.4mmol/L 1.8mmol/L Calcium Level 10.0mg/dl Total Bilirubin 0.0mg/dl Direct Bilirubin 0.00mg/dl Indirect Bilirubin 0.0mg/dl Aspartate Amino Transf (AST/SGOT) 62IU/L Alanine Aminotransferase (ALT/SGPT) 49IU/L Alkaline Phosphatase 583IU/L Troponin I < 0.012ng/ml Total Protein 8.2g/dl Albumin 2.8g/dl Globulin 5.40g/dl Albumin/Globulin Ratio 0.51 Urine Color YELLOW Urine Clarity CLEAR Urine pH 9.0 Urine Specific [place] 1.012 Urine Ketones NEGATIVEmg/dL Urine Nitrite NEGATIVEmg/dL Urine Bilirubin NEGATIVEmg/dL Urine Urobilinogen NEGATIVEmg/dL Urine Leukocyte Esterase 1+Jeny/ul Urine Microscopic RBC 0/HPF Urine Microscopic WBC 7/HPF Urine Hemoglobin NEGATIVEmg/dL Urine Glucose NEGATIVEmg/dL Urine Total Protein 1+mg/dl Current Medications Medications (Trade) Dose Ordered Sig/Tray Route PRN Reason Start Time Stop Time Status Last Admin Dose Admin Sodium Chloride (NS) 1,000 ml @ 1,000 mls/hr Q1H ONCE IV 02/01/17 13:00 02/01/17 13:59 Cancel Fentanyl (Sublimaze) 25 mcg ONCE ONCE IV 02/01/17 14:00 02/01/17 14:01 DC 02/01/17 14:53 Sodium Chloride 2110 ml 2,110 ml BOLUS OVER 2 HOURS STAT IV* 02/01/17 13:56 02/01/17 13:58 DC 02/01/17 14:52 Sodium Chloride 250 ml @ 0 mls/hr Q0M ONCE IV 02/01/17 14:00 02/01/17 14:04 DC Cefepime HCl 50 ml @ 100 mls/hr ONCE ONCE IVPB 02/01/17 15:00 02/01/17 15:29 DC 02/01/17 14:52 Vancomycin HCl/ Sodium Chloride (Vancocin/NS) 250 ml @ 83.333 mls/ hr ONCE ONCE IVPB 02/01/17 15:00 02/01/17 17:59 Procedures/MDM The patient's presentation is concerning for sepsis. She is hypertensive, tachycardic with previous episodes similar to this that were associated with pneumonia versus her stage IV decubitus ulcer. A full workup was performed. The patient's blood work was obtained and reviewed. The patient has a leukocytosis at 19. I am concerned this is associated with an infectious etiology. She is also anemic with a hemoglobin of 6.5. She is hypotensive and tachycardic. This could be associated with a symptomatic anemia. The patient was consented for transfusion and risks and benefits were discussed with her. She will be consented for 1 unit in the emergency department with reevaluation in the hospital. The patient also has a thrombocytosis, which could be an acute phase reactant associated with a possible infection. The patient's CMP demonstrated a transaminitis, which again could be an acute phase reactant. He does not have a lactic acidosis at this time. It appears that she actually has a metabolic alkalosis which is likely associated with respiratory acidosis as she is a chronic vent dependent patient. The patient's urinalysis shows positive leukocyte esterase and white cells but no nitrites and no bacteria. While this could represent a UTI, the patient does have a chronic indwelling story catheter. Without bacteria, I am hesitant to call us urinary tract infection. That said, the patient will be getting antibiotics for a hospital-acquired infection. Urine culture will be sent off. The patient's CXR was read as follows: PROCEDURE: XR Chest. CLINICAL INDICATION: Possible Sepsis TECHNIQUE: Single frontal view of the chest was obtained. COMPARISON: Chest x-ray from 01/08/2017 FINDINGS: A tracheostomy is again noted. The heart and mediastinum are within normal limits. A mass-like lesion is again identified in the lateral aspect of the left mid lung with partially circumscribed borders measuring at least 10.1 x 6.7 cm. It is not significantly changed compared to the prior chest x-ray from 01/08/2017. The aortic arch is calcified. There is mild pulmonary vascular congestion. There is no significant pleural effusion or pneumothorax. IMPRESSION: Largely stable 10.1 cm mass-like lesion or consolidation in the left mid lung. A CT study of the chest is recommended for further evaluation. Mild pulmonary vascular congestion. Aortic atherosclerosis. RPTAT: EE Physician Raghu Date Time Electronically viewed and signed by Physician Raghu on 02/01/2017 13:[address] of the abdomen and pelvis was read by the radiologist as follows: PROCEDURE: CT Abdomen and Pelvis without intravenous contrast. CLINICAL INDICATION: Diffuse abdominal pain. . COMPARISON: 01/31/2016 FINDINGS: The lung bases demonstrates a partially visualized 9 x 5.7 cm mass in the left lingula markedly increased in size since previous exam. There is trace left pleural effusion with bibasilar atelectasis.. The heart size is mildly enlarged with small pericardial effusion.. The liver is enlarged and demonstrates a 3.2 cm faint hypodense mass in the right lobe near the kalyn hepatis. There is no evidence of intrahepatic biliary dilatation. The spleen is normal in size and homogeneous in density. The pancreas as visualized is normal. The gallbladder has been removed.. The adrenal glands are normal. The kidneys are bilaterally enlarged with mild perinephric stranding. No definite obstructive uropathy or urolithiasis. The stomach is mildly distended with gas. There is a percutaneous gastrostomy tube in place with tip at the body of the stomach. . The small bowels are unremarkable. The colon and rectum are nondistended. Mild to moderate retained feces is seen throughout the colon.. There is mild rectal prolapse. There is no evidence of appendicitis or diverticulitis. The uterus has been removed. The bladder is diffusely thick-walled and decompressed with balloon tip Story catheter in place. There is diffuse mesenteric edema and infiltration with trace ascites.. There is no abdominal or pelvic adenopathy The aorta is normal in caliber with calcific atherosclerosis . The osseous structures showing degenerative enthesopathy of the spine. No osteolytic or osteoblastic lesions are identified. There is fixation hardware and laminectomy seen at the lower lumbar spine unchanged. There is diffuse subcutaneous edema or anasarca present.. There are has been prior ventral hernia repair with postsurgical changes and clips. Lack of IV and oral contrast limits sensitivity of exam. IMPRESSION: 1. Increased size of a partially visualized 9 cm mass in the left lingula. CT scan of the chest could be obtained to further evaluate. 2. Trace left pleural effusion with bibasilar atelectasis. 3. Cardiomegaly with mild pericardial effusion. 4. Diffuse mesenteric and subcutaneous edema or anasarca. Trace ascites. 5. Hepatomegaly and bilateral nephromegaly. 6. Status post cholecystectomy and hysterectomy. 7. Gastric distension with percutaneous gastrostomy tube in place. 8. Moderate retained feces throughout colon with mild prolapse of the rectum. 9. Diffusely thick-walled bladder with Story catheter in place unchanged. RPTAT: GG .Sergio Sylvester MD, MD Date Time Electronically viewed and signed by .Sergio Sylvester MD, MD on 02/01/2017 15:13 There are multiple incidental findings on the CT scan, but no obvious findings that would be associated with an infection. I likewise do not see an obvious pneumonia, but it is limited given her lung mass. The patient was started on vancomycin and cefepime in the emergency department. She was also given 30 cc/kg of fluids. Admit MDM: Patient's infectious symptoms have not stabilized and the patient is at risk of rapid decompensation. The patient will be admitted for careful hydration, antibiotic therapy, and infectious source control. Severe Sepsis criteria: Infectious source: Pneumonia versus sacral decubitus ulcer End organ damage indicated by: Hypotension (SBP < 90 or >40 mmHG drop or MAP < 65) Sepsis Management: Time of recognition of sepsis: 1330 Within 3 hours of recognition: Blood cultures x 2 before broad-spectrum antibiotics: Yes 30 ml/kg NS bolus Completed Initial lactate 1.5 Repeat lactate 1.8 Time of recognition of septic shock: No septic shock, patient states that she is frequently with low blood pressures. Persistent Hypotension Treatment: Comfort care No Central line not required Vasopressor started not require Accepting Care Team Current data and ongoing care discussed. Admitting Physician: Jacoby Critical Care: Critical care time 30 minutes excluding all billable procedures. Emergent fluid management while maintaining close respiratory support. Provision of immediate and broad-spectrum antibiotic therapy. Simultaneous assessment for possible sources in order to direct targeted therapy. Consideration for invasive and chemical support to prevent cardiopulmonary collapse. Departure Diagnosis: Primary Impression: Hypotension Qualified Code: I95.9 - Hypotension, unspecified hypotension type Additional Impressions: Tachycardia SIRS (systemic inflammatory response syndrome) Sepsis Qualified Code: A41.9 - Sepsis, due to unspecified organism Sacral decubitus ulcer, stage IV Symptomatic anemia Condition: Serious JAROD GARRISON MD Feb 01, 2017 13:17
--- NOTE | 2017-02-01 13:40 | RADRPT ---
PROCEDURE: XR Chest. CLINICAL INDICATION: Possible Sepsis TECHNIQUE: Single frontal view of the chest was obtained. COMPARISON: Chest x-ray from 01/08/2017 FINDINGS: A tracheostomy is again noted. The heart and mediastinum are within normal limits. A mass-like lesion is again identified in the lateral aspect of the left mid lung with partially cir cumscribed borders measuring at least 10.1 x 6.7 cm. It is not significantly changed compared to th e prior chest x-ray from 01/08/2017. The aortic arch is calcified. There is mild pulmonary vascular congestion. There is no significant pleural effusion or pneumothorax. IMPRESSION: Largely stable 10.1 cm mass-like lesion or consolidation in the left mid lung. A CT study of the ch est is recommended for further evaluation. Mild pulmonary vascular congestion. Aortic atherosclerosis. RPTAT: EE Physician Raghu Date Time Electronically viewed and signed by Physician Raghu on 02/01/2017 13:39 /
[2017-02-01 13:53] LABS: ABNORMAL IP MESSAGE 1; HEMATOCRIT 21.4 % (37.0-47.0); MEAN CORPUSCULAR HEMOGLOBIN 27.8 pg (29.0-33.0); MEAN CORPUSCULAR HGB CONC 30.4 g/dl (32.0-37.0); MEAN CORPUSCULAR VOLUME 91.5 fl (82.0-101.0); MEAN PLATELET VOLUME 9.1 fl (7.4-10.4); PLATELET COUNT 471 10^3/UL (140-415); RED BLOOD COUNT 2.34 10^6/ul (4.20-5.40); RED CELL DISTRIBUTION WIDTH 16.5 % (11.5-14.5); WHITE BLOOD COUNT 19.7 10^3/ul (4.8-10.8)
[2017-02-01 13:54] LABS: ADD UMIC YES; UR ASCORBIC ACID 40 mg/dL (NEGATIVE); UR BILIRUBIN (Dip) NEGATIVE (NEGATIVE); UR BLOOD (Dip) NEGATIVE (NEGATIVE); UR CLARITY CLEAR (CLEAR); UR COLOR YELLOW (YELLOW); UR GLUCOSE (Dip) NEGATIVE (NEGATIVE); UR KETONES (Dip) NEGATIVE (NEGATIVE); UR LEUKOCYTE ESTERASE (Dip) 1+ Leu/ul (NEGATIVE); UR NITRITE (Dip) NEGATIVE (NEGATIVE); UR RBC 0 /HPF (0-5); UR SPECIFIC GRAVITY (Dip) 1.012 (1.003-1.030); UR TOTAL PROTEIN (Dip) 1+ mg/dl (NEGATIVE); UR UROBILINOGEN (Dip) NEGATIVE (NEGATIVE)
[2017-02-01 13:56] LABS: POSITIVE DIFF @See below
[2017-02-01] MEDS ORDERED: SODIUM CHLORIDE 0.9% 1L BAG IV* STA (13:56)
[2017-02-01 13:58] LABS: HEMOGLOBIN 6.5 g/dl (12.0-16.0)
[2017-02-01] MEDS ORDERED: FENTAnyl 50 MCG/ML VIAL IV ONE ×2 (14:00→19:30)
[2017-02-01] MEDS ORDERED: SOD CHLORIDE 0.9% 250 ML IV ONE (14:00)
[2017-02-01 14:13] LABS: INR 1.34; PROTIME 16.7 Sec (12.2-14.2); PT RATIO 1.3
[2017-02-01 14:14] LABS: PARTIAL THROMBOPLASTIN TIME 46.1 Sec (25.0-35.0)
[2017-02-01 14:16] LABS: ALANINE AMINOTRANSFERASE 49 IU/L (13-69); ALBUMIN 2.8 g/dl (3.3-4.9); ALBUMIN/GLOBULIN RATIO 0.51; ALKALINE PHOSPHATASE 583 IU/L (42-121); ANION GAP 15 (8-16); ASPARTATE AMINO TRANSFERASE 62 IU/L (15-46); BLOOD UREA NITROGEN 43 mg/dl (7-20); CARBON DIOXIDE 35 mmol/L (21-31); CHLORIDE 90 mmol/L (97-110); CREATININE 0.61 mg/dl (0.44-1.00); GLUCOSE 95 mg/dl (70-220); SODIUM 136 mmol/L (135-144); TOTAL PROTEIN 8.2 g/dl (6.1-8.1)
[2017-02-01 14:34] LABS: ANISOCYTOSIS 1+ (0-0); EOSINOPHILS % (M) 4 % (0-7); HYPOCHROMASIA 2+ (0-0); MICROCYTOSIS 1+ (0-0); MONOCYTES % (M) 8 % (0-11); PLATELET ESTIMATE NORMAL
[2017-02-01 14:44] LABS: TROPONIN-I < 0.012 ng/ml (0.00-0.12)
[2017-02-01] MEDS ORDERED: VANCOMYCIN 1.25 GM in SOD CHLORIDE 0.9% 250 ML IVPB ONE (15:00)
[2017-02-01] MEDS ORDERED: CEFEPIME 1GM/50 ML (PMX) 50 ML IVPB ONE (15:00)
--- NOTE | 2017-02-01 15:13 | RADRPT ---
PROCEDURE: CT Abdomen and Pelvis without intravenous contrast. CLINICAL INDICATION: Diffuse abdominal pain. . TECHNIQUE: CT scan of the abdomen and pelvis without intravenous contrast was performed on a multi -slice CT scanner. Coronal and sagittal reformatted images were obtained from the axial source image s. Images were reviewed on a high-resolution PACS workstation. Total DLP = 674 mGy-cm. CTDIvol = 13.4 mGy. One or more of the following dose reduction techniques were used: Automated exposure control. Adjustment of the mA and/or kV according to patient size. Use of iterative reconstruction technique. COMPARISON: 01/31/2016 FINDINGS: CT abdomen and pelvis: The lung bases demonstrates a partially visualized 9 x 5.7 cm mass in the left lingula markedly incr eased in size since previous exam. There is trace left pleural effusion with bibasilar atelectasis.. The heart size is mildly enlarged with small pericardial effusion.. The liver is enlarged and dem onstrates a 3.2 cm faint hypodense mass in the right lobe near the kalyn hepatis. There is no evide nce of intrahepatic biliary dilatation. The spleen is normal in size and homogeneous in density. The pancreas as visualized is normal. The gallbladder has been removed.. The adrenal glands are no rmal. The kidneys are bilaterally enlarged with mild perinephric stranding. No definite obstructiv e uropathy or urolithiasis.. The stomach is mildly distended with gas. There is a percutaneous gastrostomy tube in place with ti p at the body of the stomach. . The small bowels are unremarkable. The colon and rectum are nondist ended. Mild to moderate retained feces is seen throughout the colon.. There is mild rectal prolapse . There is no evidence of appendicitis or diverticulitis. The uterus has been removed. The bladder is diffusely thick-walled and decompressed with balloon tip George catheter in place. There is diffu se mesenteric edema and infiltration with trace ascites.. There is no abdominal or pelvic adenopathy The aorta is normal in caliber with calcific atherosclerosis . The osseous structures showing degen erative enthesopathy of the spine. No osteolytic or osteoblastic lesions are identified. There is f ixation hardware and laminectomy seen at the lower lumbar spine unchanged. There is diffuse subcuta neous edema or anasarca present.. There are has been prior ventral hernia repair with postsurgical changes and clips. Lack of IV and oral contrast limits sensitivity of exam. IMPRESSION: 1. Increased size of a partially visualized 9 cm mass in the left lingula. CT scan of the chest co uld be obtained to further evaluate. 2. Trace left pleural effusion with bibasilar atelectasis. 3. Cardiomegaly with mild pericardial effusion. 4. Diffuse mesenteric and subcutaneous edema or anasarca. Trace ascites. 5. Hepatomegaly and bilateral nephromegaly. 6. Status post cholecystectomy and hysterectomy. 7. Gastric distension with percutaneous gastrostomy tube in place. 8. Moderate retained feces throughout colon with mild prolapse of the rectum. 9. Diffusely thick-walled bladder with George catheter in place unchanged. RPTAT: GG .Sergio Sylvester MD, Date Time Electronically viewed and signed by .Sergio Sylvester MD, on 02/01/2017 15:13 .L/
[2017-02-01] MEDS ORDERED: ACETAMINOPHEN 325 MG TAB PO PRN (16:00)
[2017-02-01] MEDS ORDERED: ONDANSETRON 4 MG INJ IV PRN ×2 (16:00→22:30)
[2017-02-01] MEDS ORDERED: VANCOMYCIN IV PER PHARMACY XX SCH (22:30)
[2017-02-01] MEDS ORDERED: DOCUSATE SODIUM 100 MG CAP PO PRN (22:30)
[2017-02-01] MEDS ORDERED: MAGNESIUM HYDROXIDE 30ML CUP PO PRN (22:30)
[2017-02-01] MEDS ORDERED: BISACODYL (EC) 5 MG TAB PO PRN (22:30)
[2017-02-01] MEDS ORDERED: ZOLPIDEM 5 MG TAB PO PRN (22:30)
[2017-02-01] MEDS ORDERED: NACL 0.9% 3 ML SYG IV SCH (22:30)
[2017-02-01 23:00] VITALS: TEMP 98.7
[2017-02-01] MEDS ORDERED: LEVOTHYROXINE 125 MCG TAB PO ONE (23:00)
[2017-02-01 23:43] VITALS: PULSE 93
--- NOTE | 2017-02-01 23:58 | HP ---
DATE OF ADMISSION: 02/01/2017 CHIEF COMPLAINT: Hypotension and fever. HISTORY OF PRESENT ILLNESS: The patient is a 66-year-old female, well known to me from previous admission. The patient has history of COPD, chronic diastolic dysfunction, pulmonary hypertension, lung cancer (not a candidate for definitive treatment), history of noncompliance, history SVT, chronic respiratory failure on vent. The patient also recently had cardiopulmonary arrest and underwent tracheostomy. The patient had G-tube prior to tracheostomy due to dysphagia, as well as poor p.o. intake. The patient was recuperating at subacute unit. I received a call from the nurse that the patient was febrile and hypotensive. The blood pressure was in the 80s. The patient was thought to have sepsis and was transferred to [facility] ER. The patient has remained awake and responsive; however, the patient did have hemoglobin of 6.5, white count was 19.7. There was no obvious hematemesis or melena and no bleeding from any site, no hemoptysis. Chemistries revealed sodium of 136, potassium 4, BUN was 43, lactic acid level which was initially 1.4 went up to 2.2. UA was unremarkable. The patient also has a large chronic sacral ulcer for which the patient had been seen by Dr. Christian Sinclair in the past. The patient also underwent a chest x-ray in the ER, which revealed largely stable 10.[address] of the abdomen and pelvis done in the ER, without contrast, revealed increase in size of lung mass, cardiomegaly, diffuse mesenteric and subcutaneous edema, hepatomegaly, status post cholecystectomy and hysterectomy. The patient also had moderate retained feces throughout the colon. The patient also was noted to have a 3.2 cm faint hypodense mass in the right lobe near the kalyn hepatis; however, due to lack of contrast, the study was limited. The patient will be transfused in the ER. I spoke with the ER physician regarding present assign. The patient is being admitted for further evaluation and management. The patient, meanwhile, received IV vancomycin and cefepime. The patient will be huizar cultured. The patient is awake, follows simple commands. REVIEW OF SYSTEMS: Rather limited because of the patient being on vent with tracheostomy; however, the patient did not report any chest pain, or abdominal pain. The patient does not have any leg edema. The patient also has history of depression for which she is getting Cymbalta. PAST MEDICAL HISTORY: As stated above. In addition, the patient has a history of C diff colitis. ALLERGIES: PENICILLIN. ASPIRIN IBUPROFEN. SOCIAL HISTORY: Ex-smoker. Currently resident of subacute care unit. FAMILY HISTORY: Noncontributory to the patient's condition. PHYSICAL EXAMINATION: GENERAL APPEARANCE: The patient found to be awake, alert, follows simple commands. VITAL SIGNS: Upon arrival, temperature 99.1 rectally, pulse 93, respirations 18, blood pressure 88/66, O2 sat 100 percent on mechanical vent. HEENT: Atraumatic, normocephalic head. Conjunctivae are pale, lids normal. Oropharynx revealed pale mucosa. Nose and ears normal externally. NECK: No mass. CHEST: Revealed diminished air entry at bases. No use of accessory muscles. CARDIOVASCULAR: Regular rate and rhythm. S1, S2 normal. No murmur. ABDOMEN: Soft, nondistended, and nontender. EXTREMITIES: No leg edema. Pedal pulses palpable. SKIN: Without acute rash. Large decubitus in the sacrococcygeal region. Please see nursing assessment for description of decubitus. NEUROLOGIC: The patient is fairly weak. Attempts to follow simple commands. DATA: Labs: WBC 19.7, hemoglobin 6.5, platelets 471. Sodium 136, potassium 4, BUN 46, creatinine 0.6, glucose 95. Lactic acid peaked at 2.2. AST 62, ALT 49, alk phos 45. T3 of 33. Albumin 2.8. IMPRESSION: 1. Sepsis, etiology unknown. Possibly obstructive pneumonia due to large lung mass versus bronchitis versus wound infection. 2. Chronic obstructive pulmonary disease. 3. Cancer of lung. 4. History of supraventricular tachycardia. 5. Dysphagia. 6. Chronic pain syndrome. 7. Hypothyroidism. 8. History of cardiopulmonary arrest. PLAN: The patient is admitted to telemetry floor. The patient will be given IV fluids and will be continued on G-tube feeding. The patient will be started on IV vancomycin and cefepime. The patient will have a sputum culture, wound culture, and urine culture. In addition, the patient will be given Cymbalta for depression. We will also give breathing treatment. The patient has anemia of malignancy and will be given blood transfusion. If there is any gross GI bleed, we will obtain GI consultation. We will cautiously give Lovenox for DVT prophylaxis. Wound Care consult will be obtained. We will resume Synthroid and will continue vitamin C, zinc, and local wound care. The patient also has acute kidney injury, for which patient is being given IV fluids. We will do follow up labs. As far as the lung cancer is concerned, the patient is currently not a candidate for chemotherapy. The patient was seen by Dr. Katerine Calvo on 01/18/2017 and recommended no chemotherapy and to transfuse as needed to keep hemoglobin above 8. A pulmonary consult from Dr. Bobo Lopez's group and ID consult from Dr. Jae Coleman will be obtained. Wound care consult has also been requested. PROGNOSIS: Remains poor due to lung cancer and multiple comorbidities. We will discuss with the daughter when available. Dictated By: Bashir Dozier MD /altagracia/samia /Document#: [id number]
[2017-02-02] VITALS (25 sets, daily range): BP systolic 99–138; BP diastolic 61–80; PULSE 98–115; RESP 18–28; Ht 167.6 cm; Wt 67.2 kg
[2017-02-02] MEDS ORDERED: ALBUTEROL/IPRATROPIUM (NEB) 3 ML AMP NEB SCH
[2017-02-02] MEDS: HYDROmorphONE 1 MG/ML SYG IV PRN ×4 (00:33→21:47)
[2017-02-02] MEDS: SOD CHLORIDE 0.9% 1,000 ML IV SCH ×3 (00:45→11:38)
[2017-02-02] MEDS: IPRATROPIUM (HFA) 12.9 GM INHALER INH SCH ×4 (01:30→19:53)
[2017-02-02] MEDS: ALBUTEROL 18 GM INHALER INH SCH ×4 (01:31→19:53)
[2017-02-02] MEDS ORDERED: PENDING SANTYL ORDER FOR WOUND CARE XX PRN (03:30)
[2017-02-02] MEDS ORDERED: COLLAGENASE 30 GM TUBE TOP PRN (04:00)
[2017-02-02] MEDS: LANSOPRAZOLE 30 MG CAP GTB SCH (05:08)
[2017-02-02] MEDS: VANCOMYCIN 750 MG in SOD CHLORIDE 0.9% 150 ML IVPB SCH ×2 (05:09→16:27)
[2017-02-02 08:01] LABS: BASOPHIL # 0.1 10^3/ul (0.0-0.1); BASOPHILS % 0.6 % (0.0-2.0); EOSINOPHILS # 0.3 10^3/ul (0.0-0.5); EOSINOPHILS % 1.9 % (0.0-7.0); HEMATOCRIT 27.7 % (37.0-47.0); HEMOGLOBIN 8.6 g/dl (12.0-16.0); LYMPHOCYTES # 1.3 10^3/ul (0.8-2.9); LYMPHOCYTES % 8.2 % (15.0-51.0); MEAN CORPUSCULAR HEMOGLOBIN 27.3 pg (29.0-33.0); MEAN CORPUSCULAR VOLUME 87.9 fl (82.0-101.0); MEAN PLATELET VOLUME 9.1 fl (7.4-10.4); MONOCYTE # 1.4 10^3/ul (0.3-0.9); MONOCYTES % 8.8 % (0.0-11.0); NEUTROPHILS % 79.6 % (39.0-77.0); PLATELET COUNT 445 10^3/UL (140-415); RED BLOOD COUNT 3.15 10^6/ul (4.20-5.40); RED CELL DISTRIBUTION WIDTH 17.2 % (11.5-14.5); WHITE BLOOD COUNT 15.8 10^3/ul (4.8-10.8)
[2017-02-02 08:43] LABS: ALBUMIN 2.5 g/dl (3.3-4.9); ALBUMIN/GLOBULIN RATIO 0.48; BILIRUBIN,INDIRECT 0.1 mg/dl (0-1.1); BILIRUBIN,TOTAL 0.1 mg/dl (0.2-1.3); CALCIUM 9.4 mg/dl (8.4-10.2); CREATININE 0.48 mg/dl (0.44-1.00); POTASSIUM 3.7 mmol/L (3.5-5.1); TOTAL PROTEIN 7.7 g/dl (6.1-8.1)
[2017-02-02] MEDS: HYDROCODONE/APAP (5/325) TAB PO PRN ×2 (09:29→20:29)
[2017-02-02] MEDS: DIAZEPAM 5 MG TAB GTB PRN (09:29)
[2017-02-02] MEDS: ZINC SULFATE 220 MG CAP GTB SCH (09:30)
[2017-02-02] MEDS: DULOXETINE 20 MG CAP DR GTB SCH (09:30)
[2017-02-02] MEDS: MULTIVITAMINS THERAPEUTIC TAB GTB SCH (09:30)
[2017-02-02] MEDS: ASCORBIC ACID 500 MG TAB GTB SCH ×2 (09:30→20:29)
[2017-02-02] MEDS: LACTULOSE 30ML CUP PO SCH ×2 (09:31→20:29)
[2017-02-02] MEDS: CEFEPIME 1GM/50 ML (PMX) 50 ML IVPB SCH ×2 (09:31→21:04)
[2017-02-02] MEDS: L ACIDOPHIL/B LACTIS/B LONGUM CAPSULE NGT SCH ×3 (09:32→21:03)
[2017-02-02] MEDS: COLLAGENASE 30 GM TUBE TOP SCH (09:32)
[2017-02-02] MEDS: ENOXAPARIN 40 MG/0.4 ML SYG SC SCH (09:41)
--- NOTE | 2017-02-02 15:06 | PN ---
Date/Time of Note Date/Time of Note DATE: 02/02/17 TIME: 14:57 Assessment/Plan VTE Prophylaxis VTE Prophylaxis Intervention: SCD's Lines/Catheters [facility] Saline Lock Urinary Cath still in place: Yes Reason Cath still needed: urinary retention Assessment/Plan Chief Complaint/Hosp Course Patient is currently awake on ventilatory support, tachycardic at times Problems: Assessment/Plan -Sepsis, most likely to your secondary to urinary tract infection and possible pneumonia. Dr. Coleman is following infection disease consultation, follow-up on cultures, continue antibiotics per ID. -Left lung squamous carcinoma -Ventilator dependent respiratory failure with tracheostomy -COPD -Dysphagia with PEG -History of cardiopulmonary arrest -Multiple wounds present on admission, that is post debridement at last admission. -Hypothyroidism -Chronic urinary retention with George catheter Further recommendations based on clinical course. Plan of care discussed with Dr. Dozier Exam/Review of Systems Vital Signs Vitals Vital Signs Date Time Temp Pulse Resp B/P Pulse Ox O2 Delivery O2 Flow Rate FiO2 02/02/17 13:05 105 24 98 40 02/02/17 11:28 98.0 116/79 02/01/17 23:00 Mechanical Ventilator Intake and Output 02/01/17 02/01/17 02/02/17 15:00 23:00 07:00 Intake Total 671 ml Output Total 1600 ml Balance -929 ml Exam Constitutional: alert Head: normocephalic Neck: other, supple Respiratory: diminished breath sounds (Tracheostomy the base of the neck) Cardiovascular: nl pulses Gastrointestinal: other (G-tube), soft Genitourinary - Female: other (George catheter) Extremities: normal pulses Neurological: confused Results Result Diagram: 02/02/17 0648 02/02/17 0648 Results 24 hrs Laboratory Tests Test 02/01/17 15:05 02/01/17 19:30 02/02/17 06:48 02/02/17 11:16 Lactic Acid Level 1.8 2.2 *H 1.4 White Blood Count 15.8 H Red Blood Count 3.15 #L Hemoglobin 8.6 #L Hematocrit 27.7 #L Mean Corpuscular Volume 87.9 Mean Corpuscular Hemoglobin 27.3 L Mean Corpuscular Hemoglobin Concent 31.0 L Red Cell Distribution Width 17.2 H Platelet Count 445 H Mean Platelet Volume 9.1 Neutrophils % 79.6 H Lymphocytes % 8.2 L Monocytes % 8.8 Eosinophils % 1.9 Basophils % 0.6 Nucleated Red Blood Cells % 0.0 Neutrophils # (Manual) 13 H Lymphocytes # 1.3 Monocytes # 1.4 H Eosinophils # 0.3 Basophils # 0.1 Nucleated Red Blood Cells # 0.0 Sodium Level 139 Potassium Level 3.7 Chloride Level 98 Carbon Dioxide Level 28 Anion Gap 17 H Blood Urea Nitrogen 32 #H Creatinine 0.48 Glucose Level 109 Calcium Level 9.4 Total Bilirubin 0.1 L Direct Bilirubin 0.00 Indirect Bilirubin 0.1 Aspartate Amino Transf (AST/SGOT) 71 H Alanine Aminotransferase (ALT/SGPT) 48 Alkaline Phosphatase 582 H Total Protein 7.7 Albumin 2.5 L Globulin 5.20 H Albumin/Globulin Ratio 0.48 Bedside Glucose 107 Medications Medications Current Medications Sodium Chloride (NS) 1,000 ml @ 75 mls/hr [id number] IV Last administered on 02/02 09:31; Admin Dose 75 MLS/HR; Start 02/01/17 at 22:18 Ondansetron HCl (Zofran Inj) 4 mg Q6H PRN IV NAUSEA AND/OR VOMITING; Start at 22:30 Acetaminophen (Tylenol Tab) 650 mg Q6H PRN PO PAIN LEVEL 1-3 OR FEVER; Start at 22:30 Acetaminophen/ Hydrocodone Bitart ([place] (5/325)) 1 tab Q6H PRN PO MODERATE PAIN LEVEL 4-6 Last administered on 02/02/17 09:29; Admin Dose 1 TAB; Start at 22:30 Hydromorphone HCl (Dilaudid) 0.5 mg Q4H PRN IV SEVERE PAIN LEVEL 7-10 Last administered on 02/02/17 04:57; Admin Dose 0.5 MG; Start 02/01/17 at 22:30 Docusate Sodium (Colace) 100 mg Q12H PRN PO CONSTIPATION; Start 02/01/17 at 22: 30 Magnesium Hydroxide (Milk Of Mag) 30 ml DAILY PRN PO CONSTIPATION; Start at 22:30 Bisacodyl (Dulcolax) 5 mg DAILY PRN PO CONSTIPATION; Start 02/01/17 at 22:30 Zolpidem Tartrate (Ambien) 5 mg QHS PRN PO SLEEP; Start 02/01/17 at 22:30 Lansoprazole (Prevacid) 30 mg DAILY@06 GTB Last administered on 02/02/17 05:08 ; Admin Dose 30 MG; Start 02/02/17 at 06:00 Enoxaparin Sodium 40 mg 40 mg DAILY SC Last administered on 02/02/17 09:41; Admin Dose 40 MG; Start 02/02/17 at 09:00 Cefepime HCl (Maxipime 1gm/50 ml (Pmx)) 50 ml @ 100 mls/hr Q12 IVPB Last administered on 02/02/17 09:31; Admin Dose 100 MLS/HR; Start 02/02/17 at 09:00 Ascorbic Acid (Vitamin C) 500 mg BID GTB Last administered on 02/02/17 09:30; Admin Dose 500 MG; Start 02/02/17 at 09:00 Diazepam (Valium) 5 mg DAILY PRN GTB ANXIETY Last administered on 02/02/17 09: 29; Admin Dose 5 MG; Start 02/01/17 at 22:30 Duloxetine HCl (Cymbalta) 20 mg DAILY GTB Last administered on 02/02/17 09:30 ; Admin Dose 20 MG; Start 02/02/17 at 09:00 Multivitamins Therapeutic (Theragran) 1 tab DAILY GTB Last administered on 02/02 09:30; Admin Dose 1 TAB; Start 02/02/17 at 09:00 Zinc Sulfate (Zinc Sulfate) 220 mg DAILY GTB Last administered on 02/02/17 09: 30; Admin Dose 220 MG; Start 02/02/17 at 09:00 Lactobacillus Acidophilus (Florajen3 Capsule) 1 each TID NGT Last administered on 02/02/17 14:07; Admin Dose 1 EACH; Start 02/02/17 at 09:00 Lactulose 20 gm 20 gm BID PO Last administered on 02/02/17 09:31; Admin Dose 20 GM; Start 02/02/17 at 09:00 Vancomycin HCl/ Sodium Chloride (Vancocin/NS) 150 ml @ 75 mls/hr Q12H IVPB Last administered on 02/02/17 05:09; Admin Dose 75 MLS/HR; Start 02/02/17 at 05 :00 Miscellaneous Information (Pending Santyl Order For Wound Care) This patient robles... PRN PRN XX WOUND CARE; Start 02/02/17 at 03:30 Collagenase (Santyl) 1 applic DAILY TOP Last administered on 02/02/17t 09:32; Admin Dose 1 APPLIC; Start 02/02/17 at 09:00 Collagenase (Santyl) 1 applic PRN PRN TOP PRN; Start 02/02/17 at 04:00 REBECCA ISLAS Feb 02, 2017 15:06
--- NOTE | 2017-02-02 17:17 | CONS ---
DATE OF ADMISSION: 02/01/2017 DATE OF CONSULTATION: 02/02/2017 REFERRING PHYSICIAN: Annie Dowling NP for Dr. Dozier. Thank you for this consultation. HISTORY OF PRESENT ILLNESS: This is an unfortunate, 66-year-old, -[place] woman well known to our service from multiple previous admissions. The patient with a history of lung CA, cachexia, unstageable sacral decubitus, status post multiple debridements, anemia, COPD, urinary retention, depression, chronic pain syndrome, history of Clostridium difficile colitis, recurrent bouts of UTI, MRSA nares colonization, history of line sepsis with tip culture on previous admission growing coag- negative Staph species. Acutely, the patient came symptomatic hypotension with vital signs as follows: Temperature rectally 99.1, pulse 93, respirations 18, blood pressure 88/66, saturation 100 on vent support. LABORATORY AND DIAGNOSTIC DATA: WBC 19.7, H and H 6.5 and 21.4, platelets 471. Neutrophils 14. Sodium 136, potassium 4, BUN 43, creatinine 0.1, normal bilirubin, AST 62, ALT 49, negative troponin, alk phos 583, albumin 2.8. Urinalysis was negative for nitrite, positive for leukocyte esterase, and WBC. The abdomen and pelvis revealed increased size of partially visualized, 9-cm mass in the left lingual, trace left pleural effusion with bibasilar atelectasis, cardiomegaly with pericardial effusion, diffuse mesenteric and subcutaneous edema or anasarca, trace ascites, hepatomegaly and bilateral nephromegaly, status post cholecystectomy and hysterectomy, gastric distention with percutaneous G tube in place, moderate retained feces throughout the colon with mild prolapse of the rectum, diffusely thick- walled bladder with George catheter in place, unchanged. Chest x- ray revealed mild pulmonary vascular congestion and large stable 10.1 cm mass-like lesion or consolidation in the left mid lung. Indwellings: Patient has trach, PEG, George and peripheral IV. Antimicrobials: She was started on cefepime and vancomycin. SOCIAL HISTORY: Patient came from longterm facility. REVIEW OF SYSTEMS: As per history of present illness. Patient is trached and cannot provide information. PHYSICAL EXAMINATION: This is a chronically ill-appearing, fragile, cachectic elderly -[place] woman who is alert, in no distress. HEENT: Head atraumatic, normocephalic. Sclerae anicteric. Buccal mucosa dry. NECK: Supple. Tracheostomy present. CHEST: Chest rise symmetrical. Breath sounds diminished at the bases. HEART: S1, S2. ABDOMEN: Distended, soft, bowel sounds present. G-tube site clear. EXTREMITIES: Without cyanosis. SKIN: With unstageable large sacral wound that does not look infected. ASSESSMENT: 1. Sepsis likely secondary to recurrent UTI. Rule out obstructive pneumonia given large lung mass. 2. Cachexia. 3. Chronic respiratory failure. 4. Unstageable sacral wound, status post multiple debridements. 5. Acute on chronic anemia. 6. History of cardiopulmonary arrest. PLAN: The patient remains stable. Blood cultures so far negative. Urine culture growing gram-negative rods. She is covered with broad-spectrum antibiotics. She is going to be seen by Pulmonary team. Will follow on chest x-ray, cultures and adjust antibiotics accordingly. Above was discussed with Dr. Jae Coleman. Dictated By: Johnny Chapa NP /altagracia/bere /Document#: [id number] SIMEON
[2017-02-03] VITALS (24 sets, daily range): BP systolic 116–143; BP diastolic 68–81; PULSE 101–109; RESP 16–27
[2017-02-03] MEDS: SOD CHLORIDE 0.9% 1,000 ML IV SCH ×2 (00:58→13:59)
[2017-02-03] MEDS: HYDROmorphONE 1 MG/ML SYG IV PRN ×6 (01:52→22:03)
[2017-02-03] MEDS: IPRATROPIUM (HFA) 12.9 GM INHALER INH SCH ×4 (02:07→19:38)
[2017-02-03] MEDS: ALBUTEROL 18 GM INHALER INH SCH ×4 (02:07→19:38)
[2017-02-03 04:29] LABS: ABNORMAL IP MESSAGE 1; BASOPHIL # 0.1 10^3/ul (0.0-0.1); BASOPHILS % 0.5 % (0.0-2.0); EOSINOPHILS # 0.5 10^3/ul (0.0-0.5); EOSINOPHILS % 2.6 % (0.0-7.0); HEMATOCRIT 28.2 % (37.0-47.0); HEMOGLOBIN 8.5 g/dl (12.0-16.0); LYMPHOCYTES # 1.6 10^3/ul (0.8-2.9); LYMPHOCYTES % 8.2 % (15.0-51.0); MEAN CORPUSCULAR HEMOGLOBIN 26.3 pg (29.0-33.0); MEAN CORPUSCULAR HGB CONC 30.1 g/dl (32.0-37.0); MEAN CORPUSCULAR VOLUME 87.3 fl (82.0-101.0); MEAN PLATELET VOLUME 8.8 fl (7.4-10.4); MONOCYTES % 10.2 % (0.0-11.0); NEUTROPHILS % 77.7 % (39.0-77.0); PLATELET COUNT 443 10^3/UL (140-415); RED BLOOD COUNT 3.23 10^6/ul (4.20-5.40); RED CELL DISTRIBUTION WIDTH 16.8 % (11.5-14.5); WHITE BLOOD COUNT 19.1 10^3/ul (4.8-10.8)
[2017-02-03 04:38] LABS: POSITIVE DIFF @See below
[2017-02-03 04:48] LABS: CALCIUM 9.7 mg/dl (8.4-10.2); CREATININE 0.51 mg/dl (0.44-1.00); POTASSIUM 3.3 mmol/L (3.5-5.1)
[2017-02-03] MEDS: VANCOMYCIN 750 MG in SOD CHLORIDE 0.9% 150 ML IVPB SCH (06:08)
[2017-02-03] MEDS: LANSOPRAZOLE 30 MG CAP GTB SCH (06:08)
--- NOTE | 2017-02-03 09:21 | PN ---
Date/Time of Note Date/Time of Note DATE: 02/03/17 TIME: 09:20 Assessment/Plan VTE Prophylaxis VTE Prophylaxis Intervention: other Lines/Catheters IV Catheter Type (from Nrs): Peripheral IV Urinary Cath still in place: Yes Reason Cath still needed: skin wounds contaminated by urine Assessment/Plan Chief Complaint/Hosp Course -Sepsis, most likely to your secondary to urinary tract infection and possible pneumonia. Dr. Coleman is following infection disease consultation, follow-up on cultures, continue antibiotics per ID. -Left lung squamous carcinoma -Ventilator dependent respiratory failure with tracheostomy -COPD -Dysphagia with PEG -History of cardiopulmonary arrest -Multiple wounds present on admission, that is post debridement at last admission. -Hypothyroidism -Chronic urinary retention with George catheter Problems: Subjective 24 Hr Interval Summary Free Text/Dictation Trach in place, patient appears comfortable Exam/Review of Systems Vital Signs Vitals Vital Signs Date Time Temp Pulse Resp B/P Pulse Ox O2 Delivery O2 Flow Rate FiO2 02/03/17 08:45 103 02/03/17 08: 99.2 17 122/73 98 02/03/17 05:46 40 02/01/17 23:00 Mechanical Ventilator Intake and Output 02/02/17 02/02/17 02/03/17 15:00 23:00 07:00 Intake Total 50 ml 1945 ml 2235 ml Output Total 1300 ml 1500 ml Balance 50 ml 645 ml 735 ml Exam Constitutional: well developed Head: atraumatic, normocephalic Neck: supple Respiratory: diminished breath sounds Cardiovascular: regular rate and rhythm Gastrointestinal: non-tender, soft Extremities: normal pulses Results Result Diagram: 02/03/17 0411 02/03/17 0411 Results 24 hrs Laboratory Tests Test 02/02/17 11:16 02/03/17 04:10 02/03/17 04:11 Bedside Glucose 107 Vancomycin Level Trough 11.7 White Blood Count 19.1 #H Red Blood Count 3.23 L Hemoglobin 8.5 L Hematocrit 28.2 L Mean Corpuscular Volume 87.3 Mean Corpuscular Hemoglobin 26.3 L Mean Corpuscular Hemoglobin Concent 30.1 L Red Cell Distribution Width 16.8 H Platelet Count 443 H Mean Platelet Volume 8.8 Neutrophils % 77.7 H Lymphocytes % 8.2 L Monocytes % 10.2 Eosinophils % 2.6 Basophils % 0.5 Nucleated Red Blood Cells % 0.0 Neutrophils # (Manual) 15 H Lymphocytes # 1.6 Monocytes # 2.0 H Eosinophils # 0.5 Basophils # 0.1 Nucleated Red Blood Cells # 0.0 Sodium Level 136 Potassium Level 3.3 L Chloride Level 100 Carbon Dioxide Level 28 Anion Gap 11 Blood Urea Nitrogen 24 H Creatinine 0.51 Glucose Level 136 Calcium Level 9.7 Medications Medications Current Medications Sodium Chloride (NS) 1,000 ml @ 75 mls/hr [id number] IV Last administered on 02/02 09:31; Admin Dose 75 MLS/HR; Start 02/01/17 at 22:18 Ondansetron HCl (Zofran Inj) 4 mg Q6H PRN IV NAUSEA AND/OR VOMITING; Start at 22:30 Acetaminophen (Tylenol Tab) 650 mg Q6H PRN PO PAIN LEVEL 1-3 OR FEVER; Start at 22:30 Acetaminophen/ Hydrocodone Bitart ([place] (5/325)) 1 tab Q6H PRN PO MODERATE PAIN LEVEL 4-6 Last administered on 02/02/17 20:29; Admin Dose 1 TAB; Start at 22:30 Hydromorphone HCl (Dilaudid) 0.5 mg Q4H PRN IV SEVERE PAIN LEVEL 7-10 Last administered on 02/03/17 06:09; Admin Dose 0.5 MG; Start 02/01/17 at 22:30 Docusate Sodium (Colace) 100 mg Q12H PRN PO CONSTIPATION; Start 02/01/17 at 22: 30 Magnesium Hydroxide (Milk Of Mag) 30 ml DAILY PRN PO CONSTIPATION; Start at 22:30 Bisacodyl (Dulcolax) 5 mg DAILY PRN PO CONSTIPATION; Start 02/01/17 at 22:30 Zolpidem Tartrate (Ambien) 5 mg QHS PRN PO SLEEP; Start 02/01/17 at 22:30 Lansoprazole (Prevacid) 30 mg DAILY@06 GTB Last administered on 02/03/17 06:08 ; Admin Dose 30 MG; Start 02/02/17 at 06:00 Enoxaparin Sodium 40 mg 40 mg DAILY SC Last administered on 02/02/17 09:41; Admin Dose 40 MG; Start 02/02/17 at 09:00 Cefepime HCl (Maxipime 1gm/50 ml (Pmx)) 50 ml @ 100 mls/hr Q12 IVPB Last administered on 02/02/17 21:04; Admin Dose 100 MLS/HR; Start 02/02/17 at 09:00 Ascorbic Acid (Vitamin C) 500 mg BID GTB Last administered on 02/02/17 20:29; Admin Dose 500 MG; Start 02/02/17 at 09:00 Diazepam (Valium) 5 mg DAILY PRN GTB ANXIETY Last administered on 02/02/17 09: 29; Admin Dose 5 MG; Start 02/01/17 at 22:30 Duloxetine HCl (Cymbalta) 20 mg DAILY GTB Last administered on 02/02/17 09:30 ; Admin Dose 20 MG; Start 02/02/17 at 09:00 Multivitamins Therapeutic (Theragran) 1 tab DAILY GTB Last administered on 02/02 09:30; Admin Dose 1 TAB; Start 02/02/17 at 09:00 Zinc Sulfate (Zinc Sulfate) 220 mg DAILY GTB Last administered on 02/02/17 09: 30; Admin Dose 220 MG; Start 02/02/17 at 09:00 Lactobacillus Acidophilus (Florajen3 Capsule) 1 each TID NGT Last administered on 02/02/17 21:03; Admin Dose 1 EACH; Start 02/02/17 at 09:00 Lactulose 20 gm 20 gm BID PO Last administered on 02/02/17 20:29; Admin Dose 20 GM; Start 02/02/17 at 09:00 Vancomycin HCl/ Sodium Chloride (Vancocin/NS) 150 ml @ 75 mls/hr Q12H IVPB Last administered on 02/03/17 06:08; Admin Dose 75 MLS/HR; Start 02/02/17 at 05 :00 Miscellaneous Information (Pending Santyl Order For Wound Care) This patient robles... PRN PRN XX WOUND CARE; Start 02/02/17 at 03:30 Collagenase (Santyl) 1 applic DAILY TOP Last administered on 02/02/17 09:32; Admin Dose 1 APPLIC; Start 02/02/17 at 09:00 Collagenase (Santyl) 1 applic PRN PRN TOP PRN; Start 02/02/17 at 04:00 MICHAEL HOROWITZ Feb 03, 2017 09:21
[2017-02-03] MEDS: ZINC SULFATE 220 MG CAP GTB SCH (09:36)
[2017-02-03] MEDS: DULOXETINE 20 MG CAP DR GTB SCH (09:36)
[2017-02-03] MEDS: LACTULOSE 30ML CUP PO SCH ×2 (09:36→20:26)
[2017-02-03] MEDS: L ACIDOPHIL/B LACTIS/B LONGUM CAPSULE NGT SCH ×3 (09:36→22:03)
[2017-02-03] MEDS: MULTIVITAMINS THERAPEUTIC TAB GTB SCH (09:36)
[2017-02-03] MEDS: ASCORBIC ACID 500 MG TAB GTB SCH ×2 (09:36→20:26)
[2017-02-03] MEDS: CEFEPIME 1GM/50 ML (PMX) 50 ML IVPB SCH ×2 (09:36→20:26)
[2017-02-03] MEDS: COLLAGENASE 30 GM TUBE TOP SCH (09:37)
[2017-02-03] MEDS: ENOXAPARIN 40 MG/0.4 ML SYG SC SCH (09:39)
[2017-02-03] MEDS ORDERED: POTASSIUM CHLORIDE 20 MEQ POWDER FOR ORAL SOLN GTB ONE (16:00)
[2017-02-03] MEDS: TRIMETHOPRIM/SULFAMETHOXAZOLE 10 ML in DEXTROSE 5% 500 ML IVPB SCH (17:40)
[2017-02-03] MEDS: HYDROCODONE/APAP (5/325) TAB PO PRN (20:26)
--- NOTE | 2017-02-03 22:55 | PN ---
DATE: 02/03/2017 SUBJECTIVE DATA: No acute changes. The patient is awake, looks comfortable. No fevers. OBJECTIVE DATA: VITAL SIGNS: Temperature 99.6, pulse 107, respirations 16, blood pressure 132/81, and saturation 99 on 40 FiO2. LABORATORY AND DIAGNOSTIC DATA: WBC 19.1, H and H 8.5 and 28.2, platelets 443, and neutrophils 77.7. BUN 24 and creatinine 0.51. INDWELLINGS: Trach, PEG, and George. MICROBIOLOGY: Urine culture growing multidrug resistant Acinetobacter baumannii, susceptible to Bactrim. Nares swab came back positive for MSSA. ANTIMICROBIALS: The patient is on IV vancomycin and cefepime. ALLERGIES: PENICILLIN. PHYSICAL EXAMINATION: GENERAL: This is a cachectic, well-developed, elderly woman who is awake, in no distress. HEENT: Head atraumatic, normocephalic. Sclerae anicteric. Buccal mucosa dry. NECK: Supple. Tracheostomy present. CHEST: Rise symmetrical. Breath sounds diminished at the bases with scattered crackles. HEART: S1, S2. ABDOMEN: Soft, bowel sounds present. EXTREMITIES: Without cyanosis. ASSESSMENT: 1. Recurrent sepsis likely secondary number 2. 2. Multidrug resistant urinary tract infection (UTI). 3. Chronic respiratory failure, possibly obstructive pneumonia. 4. Lung cancer. 5. Unstageable sacral decubitus. 6. Chronic cachexia. 7. Anemia. 8. History of cardiopulmonary arrest. PLAN: 1. The patient remains stable. 2. We are going to change the vancomycin to Bactrim. 3. Continue cefepime. 4. Add Bactroban to nares. 5. Follow recommendations of consultants. Dictated By: Johnny Chapa NP /altagracia/randolph /Document#: [id number]
[2017-02-04] VITALS (24 sets, daily range): BP systolic 108–131; BP diastolic 67–79; PULSE 92–103; RESP 16–25
[2017-02-04] MEDS: TRIMETHOPRIM/SULFAMETHOXAZOLE 10 ML in DEXTROSE 5% 500 ML IVPB SCH ×4 (01:35→22:01)
[2017-02-04] MEDS: ALBUTEROL 18 GM INHALER INH SCH ×4 (01:50→19:47)
[2017-02-04] MEDS: IPRATROPIUM (HFA) 12.9 GM INHALER INH SCH ×4 (01:50→19:47)
[2017-02-04] MEDS: HYDROmorphONE 1 MG/ML SYG IV PRN ×6 (02:47→23:33)
[2017-02-04] MEDS: SOD CHLORIDE 0.9% 1,000 ML IV SCH ×3 (02:52→23:00)
[2017-02-04] MEDS: HYDROCODONE/APAP (5/325) TAB PO PRN ×2 (05:49→21:07)
[2017-02-04] MEDS: LANSOPRAZOLE 30 MG CAP GTB SCH (05:49)
[2017-02-04 07:12] LABS: CALCIUM 10.4 mg/dl (8.4-10.2); CREATININE 0.51 mg/dl (0.44-1.00); POTASSIUM 3.5 mmol/L (3.5-5.1)
[2017-02-04] MEDS: ZINC SULFATE 220 MG CAP GTB SCH (09:00)
--- NOTE | 2017-02-04 11:14 | PN ---
Date/Time of Note Date/Time of Note DATE: 02/04/17 TIME: 11:13 Assessment/Plan VTE Prophylaxis VTE Prophylaxis Intervention: other Lines/Catheters IV Catheter Type (from Nrsg): Peripheral IV Urinary Cath still in place: Yes Reason Cath still needed: skin wounds contaminated by urine Assessment/Plan Chief Complaint/Hosp Course -Sepsis, most likely to your secondary to urinary tract infection and possible pneumonia. Dr. Coleman is following infection disease consultation, follow-up on cultures, continue antibiotics per ID. -Left lung squamous carcinoma -Ventilator dependent respiratory failure with tracheostomy -COPD -Dysphagia with PEG -History of cardiopulmonary arrest -Multiple wounds present on admission, that is post debridement at last admission. -Hypothyroidism -Chronic urinary retention with George catheter Problems: Subjective 24 Hr Interval Summary Free Text/Dictation Patient is resting, trach in place Exam/Review of Systems Vital Signs Vitals Vital Signs Date Time Temp Pulse Resp B/P Pulse Ox O2 Delivery O2 Flow Rate FiO2 02/04/17 09:44 96 20 100 40 02/04/17 08:03 98.9 116/72 02/01/17 23:00 Mechanical Ventilator Intake and Output 02/03/17 02/03/17 02/04/17 14:59 22:59 06:59 Intake Total 50 ml 1515 ml 2255 ml Output Total 1600 ml 1500 ml Balance 50 ml -85 ml 755 ml Exam Constitutional: well developed Head: atraumatic, normocephalic Neck: supple Respiratory: diminished breath sounds Cardiovascular: regular rate and rhythm Gastrointestinal: non-tender, soft Extremities: normal pulses Results Result Diagram: 02/03/17 0411 02/04/17 0555 Results 24 hrs Laboratory Tests Test 02/04/17 05:55 Sodium Level 134 L Potassium Level 3.5 Chloride Level 99 Carbon Dioxide Level 27 Anion Gap 12 Blood Urea Nitrogen 17 Creatinine 0.51 Glucose Level 107 Calcium Level 10.4 H Medications Medications Current Medications Sodium Chloride (NS) 1,000 ml @ 75 mls/hr [id number] IV Last administered on 02/04t 02:52; Admin Dose 75 MLS/HR; Start 02/01/17 at 22:18 Ondansetron HCl (Zofran Inj) 4 mg Q6H PRN IV NAUSEA AND/OR VOMITING; Start at 22:30 Acetaminophen (Tylenol Tab) 650 mg Q6H PRN PO PAIN LEVEL 1-3 OR FEVER; Start at 22:30 Acetaminophen/ Hydrocodone Bitart ([place] (5/325)) 1 tab Q6H PRN PO MODERATE PAIN LEVEL 4-6 Last administered on 02/04/17 05:49; Admin Dose 1 TAB; Start at 22:30 Hydromorphone HCl (Dilaudid) 0.5 mg Q4H PRN IV SEVERE PAIN LEVEL 7-10 Last administered on 02/04/17 06:55; Admin Dose 0.5 MG; Start 02/01/17 at 22:30 Docusate Sodium (Colace) 100 mg Q12H PRN PO CONSTIPATION; Start 02/01/17 at 22: 30 Magnesium Hydroxide (Milk Of Mag) 30 ml DAILY PRN PO CONSTIPATION; Start at 22:30 Bisacodyl (Dulcolax) 5 mg DAILY PRN PO CONSTIPATION; Start 02/01/17 at 22:30 Zolpidem Tartrate (Ambien) 5 mg QHS PRN PO SLEEP; Start 02/01/17 at 22:30 Lansoprazole (Prevacid) 30 mg DAILY@06 GTB Last administered on 02/04/17 05:49 ; Admin Dose 30 MG; Start 02/02/17 at 06:00 Enoxaparin Sodium 40 mg 40 mg DAILY SC Last administered on 02/03/17 09:39; Admin Dose 40 MG; Start 02/02/17 at 09:00 Cefepime HCl (Maxipime 1gm/50 ml (Pmx)) 50 ml @ 100 mls/hr Q12 IVPB Last administered on 02/03/17 20:26; Admin Dose 100 MLS/HR; Start 02/02/17 at 09:00 Ascorbic Acid (Vitamin C) 500 mg BID GTB Last administered on 02/03/17 20:26; Admin Dose 500 MG; Start 02/02/17 at 09:00 Diazepam (Valium) 5 mg DAILY PRN GTB ANXIETY Last administered on 02/02/17 09: 29; Admin Dose 5 MG; Start 02/01/17 at 22:30 Duloxetine HCl (Cymbalta) 20 mg DAILY GTB Last administered on 02/03/17 09:36 ; Admin Dose 20 MG; Start 02/02/17 at 09:00 Multivitamins Therapeutic (Theragran) 1 tab DAILY GTB Last administered on 02/03 09:36; Admin Dose 1 TAB; Start 02/02/17 at 09:00 Zinc Sulfate (Zinc Sulfate) 220 mg DAILY GTB Last administered on 02/03/17 09: 36; Admin Dose 220 MG; Start 02/02/17 at 09:00 Lactobacillus Acidophilus (Florajen3 Capsule) 1 each TID NGT Last administered on 02/03/17 22:03; Admin Dose 1 EACH; Start 02/02/17 at 09:00 Lactulose (Enulose) 20 gm BID PO Last administered on 02/03/17 20:26; Admin Dose 20 GM; Start 02/02/17 at 09:00 Collagenase (Santyl) 1 applic DAILY TOP Last administered on 02/03/17 09:37; Admin Dose 1 APPLIC; Start 02/02/17 at 09:00 Collagenase 1 applic 1 applic PRN PRN TOP PRN; Start 02/02/17 at 04:00 Trimethoprim/ Sulfamethoxazole/ Dextrose (Bactrim/D5W) 510 ml @ 350 mls/hr Q8 IVPB Last administered on 02/04/17 06:53; Admin Dose 350 MLS/HR; Start at 17:00 MICHAEL HOROWITZ Feb 04, 2017 11:14
[2017-02-04] MEDS: L ACIDOPHIL/B LACTIS/B LONGUM CAPSULE NGT SCH ×3 (11:26→21:07)
[2017-02-04] MEDS: MULTIVITAMINS THERAPEUTIC TAB GTB SCH (11:26)
[2017-02-04] MEDS: DULOXETINE 20 MG CAP DR GTB SCH (11:27)
[2017-02-04] MEDS: LACTULOSE 30ML CUP PO SCH ×2 (11:27→21:06)
[2017-02-04] MEDS: ASCORBIC ACID 500 MG TAB GTB SCH ×2 (11:27→21:07)
[2017-02-04] MEDS: CEFEPIME 1GM/50 ML (PMX) 50 ML IVPB SCH ×2 (11:27→21:07)
[2017-02-04] MEDS: ENOXAPARIN 40 MG/0.4 ML SYG SC SCH (11:32)
--- NOTE | 2017-02-04 14:10 | CONS ---
Date/Time of Note Date/Time of Note DATE: 02/04/17 TIME: 14:07 Assessment/Plan Assessment/Plan Chief Complaint/Hosp Course SUBJECTIVE DATA: No acute changes. The patient is awake, looks comfortable. No fevers. INDWELLINGS: Trach, PEG, and George. MICROBIOLOGY: Urine culture growing multidrug resistant Acinetobacter baumannii, susceptible to Bactrim. Nares swab came back positive for MSSA. ANTIMICROBIALS: The patient is on IV Bactrim and cefepime. ALLERGIES: PENICILLIN. PHYSICAL EXAMINATION: GENERAL: This is a cachectic, well-developed, elderly woman who is awake, in no distress. HEENT: Head atraumatic, normocephalic. Sclerae anicteric. Buccal mucosa dry. NECK: Supple. Tracheostomy present. CHEST: Rise symmetrical. Breath sounds diminished at the bases with scattered crackles. HEART: S1, S2. ABDOMEN: Soft, bowel sounds present. EXTREMITIES: Without cyanosis. ASSESSMENT: 1. Recurrent sepsis likely secondary number 2. 2. Multidrug resistant urinary tract infection (UTI). 3. Chronic respiratory failure, possibly obstructive pneumonia. 4. Lung cancer. 5. Unstageable sacral decubitus. 6. Chronic cachexia. 7. Anemia. 8. History of cardiopulmonary arrest. 9. MRSA + nares PLAN: Stable, continue abx, local wound care, vent per pulmonary, monitor renal f-n DW staff Problems: Consultation Date/Type/Reason Admit Date/Time Feb 01, 2017 at 15:50 Initial Consult Date Type of Consultation: id Exam/Review of Systems Vital Signs Vitals Vital Signs Date Time Temp Pulse Resp B/P Pulse Ox O2 Delivery O2 Flow Rate FiO2 02/04/17 13:48 102 02/04/17 13:16 20 99 35 02/04/17 11:47 98.8 120/79 02/01/17 23:00 Mechanical Ventilator Intake and Output 02/03/17 02/03/17 02/04/17 15:00 23:00 07:00 Intake Total 50 ml 1515 ml 2255 ml Output Total 1600 ml 1500 ml Balance 50 ml -85 ml 755 ml Results Result Diagram: 02/03/17 0411 02/04/17 0555 Results 24 hrs Laboratory Tests Test 02/04/17 05:55 Sodium Level 134 L Potassium Level 3.5 Chloride Level 99 Carbon Dioxide Level 27 Anion Gap 12 Blood Urea Nitrogen 17 Creatinine 0.51 Glucose Level 107 Calcium Level 10.4 H Medications Medications Current Medications Sodium Chloride (NS) 1,000 ml @ 75 mls/hr [id number] IV Last administered on 02/04 02:52; Admin Dose 75 MLS/HR; Start 02/01/17 at 22:18 Ondansetron HCl (Zofran Inj) 4 mg Q6H PRN IV NAUSEA AND/OR VOMITING; Start at 22:30 Acetaminophen (Tylenol Tab) 650 mg Q6H PRN PO PAIN LEVEL 1-3 OR FEVER; Start at 22:30 Acetaminophen/ Hydrocodone Bitart ([place] (5/325)) 1 tab Q6H PRN PO MODERATE PAIN LEVEL 4-6 Last administered on 02/04/17 05:49; Admin Dose 1 TAB; Start at 22:30 Hydromorphone HCl (Dilaudid) 0.5 mg Q4H PRN IV SEVERE PAIN LEVEL 7-10 Last administered on 02/04/17 11:29; Admin Dose 0.5 MG; Start 02/01/17 at 22:30 Docusate Sodium (Colace) 100 mg Q12H PRN PO CONSTIPATION; Start 02/01/17 at 22: 30 Magnesium Hydroxide (Milk Of Mag) 30 ml DAILY PRN PO CONSTIPATION; Start at 22:30 Bisacodyl (Dulcolax) 5 mg DAILY PRN PO CONSTIPATION; Start 02/01/17 at 22:30 Zolpidem Tartrate (Ambien) 5 mg QHS PRN PO SLEEP; Start 02/01/17 at 22:30 Lansoprazole (Prevacid) 30 mg DAILY@06 GTB Last administered on 02/04/17 05:49 ; Admin Dose 30 MG; Start 02/02/17 at 06:00 Enoxaparin Sodium 40 mg 40 mg DAILY SC Last administered on 02/04/17 11:32; Admin Dose 40 MG; Start 02/02/17 at 09:00 Cefepime HCl (Maxipime 1gm/50 ml (Pmx)) 50 ml @ 100 mls/hr Q12 IVPB Last administered on 02/04/17 11:27; Admin Dose 100 MLS/HR; Start 02/02/17 at 09:00 Ascorbic Acid (Vitamin C) 500 mg BID GTB Last administered on 02/04/17 11:27; Admin Dose 500 MG; Start 02/02/17 at 09:00 Diazepam (Valium) 5 mg DAILY PRN GTB ANXIETY Last administered on 02/02/17 09: 29; Admin Dose 5 MG; Start 02/01/17 at 22:30 Duloxetine HCl (Cymbalta) 20 mg DAILY GTB Last administered on 02/04/17 11:27 ; Admin Dose 20 MG; Start 02/02/17 at 09:00 Multivitamins Therapeutic (Theragran) 1 tab DAILY GTB Last administered on 02/04 11:26; Admin Dose 1 TAB; Start 02/02/17 at 09:00 Zinc Sulfate (Zinc Sulfate) 220 mg DAILY GTB Last administered on 02/04/17 09: 00; Admin Dose 220 MG; Start 02/02/17 at 09:00 Lactobacillus Acidophilus (Florajen3 Capsule) 1 each TID NGT Last administered on 02/04/17 11:26; Admin Dose 1 EACH; Start 02/02/17 at 09:00 Lactulose (Enulose) 20 gm BID PO Last administered on 02/04/17 11:27; Admin Dose 20 GM; Start 02/02/17 at 09:00 Collagenase (Santyl) 1 applic DAILY TOP Last administered on 02/03/17 09:37; Admin Dose 1 APPLIC; Start 02/02/17 at 09:00 Collagenase 1 applic 1 applic PRN PRN TOP PRN; Start 02/02/17 at 04:00 Trimethoprim/ Sulfamethoxazole/ Dextrose (Bactrim/D5W) 510 ml @ 350 mls/hr Q8 IVPB Last administered on 02/04/17 06:53; Admin Dose 350 MLS/HR; Start at 17:00 RUBIN MAYEN NP Feb 04, 2017 14:10
[2017-02-04] MEDS: COLLAGENASE 30 GM TUBE TOP SCH ×2 (14:24→23:00)
[2017-02-04] MEDS: ACETAMINOPHEN 325 MG TAB PO PRN (21:08)
[2017-02-05] VITALS (23 sets, daily range): BP systolic 93–122; BP diastolic 60–74; PULSE 93–100; RESP 18–26
[2017-02-05] MEDS: ALBUTEROL 18 GM INHALER INH SCH ×4 (02:11→20:00)
[2017-02-05] MEDS: IPRATROPIUM (HFA) 12.9 GM INHALER INH SCH ×4 (02:11→20:00)
[2017-02-05] MEDS: HYDROmorphONE 1 MG/ML SYG IV PRN ×6 (03:29→22:33)
[2017-02-05] MEDS: TRIMETHOPRIM/SULFAMETHOXAZOLE 10 ML in DEXTROSE 5% 500 ML IVPB SCH ×3 (06:12→21:41)
[2017-02-05] MEDS: SOD CHLORIDE 0.9% 1,000 ML IV SCH (06:18)
[2017-02-05] MEDS: LANSOPRAZOLE 30 MG CAP GTB SCH (06:19)
[2017-02-05 06:44] LABS: ABNORMAL IP MESSAGE 1; BASOPHIL # 0.1 10^3/ul (0.0-0.1); BASOPHILS % 0.5 % (0.0-2.0); EOSINOPHILS # 0.7 10^3/ul (0.0-0.5); EOSINOPHILS % 3.3 % (0.0-7.0); HEMATOCRIT 29.3 % (37.0-47.0); HEMOGLOBIN 8.8 g/dl (12.0-16.0); LYMPHOCYTES # 1.9 10^3/ul (0.8-2.9); LYMPHOCYTES % 9.6 % (15.0-51.0); MEAN CORPUSCULAR HEMOGLOBIN 26.7 pg (29.0-33.0); MEAN CORPUSCULAR VOLUME 88.8 fl (82.0-101.0); MEAN PLATELET VOLUME 9.1 fl (7.4-10.4); MONOCYTE # 1.9 10^3/ul (0.3-0.9); MONOCYTES % 9.6 % (0.0-11.0); NEUTROPHILS % 76.1 % (39.0-77.0); PLATELET COUNT 450 10^3/UL (140-415); RED CELL DISTRIBUTION WIDTH 16.5 % (11.5-14.5); WHITE BLOOD COUNT 19.4 10^3/ul (4.8-10.8)
[2017-02-05 06:53] LABS: POSITIVE DIFF @See below
[2017-02-05 07:04] LABS: CALCIUM 10.7 mg/dl (8.4-10.2); CREATININE 0.54 mg/dl (0.44-1.00); POTASSIUM 3.4 mmol/L (3.5-5.1)
[2017-02-05] MEDS: ASCORBIC ACID 500 MG TAB GTB SCH ×2 (09:38→21:29)
[2017-02-05] MEDS: DULOXETINE 20 MG CAP DR GTB SCH (09:38)
[2017-02-05] MEDS: L ACIDOPHIL/B LACTIS/B LONGUM CAPSULE NGT SCH ×3 (09:39→21:29)
[2017-02-05] MEDS: ZINC SULFATE 220 MG CAP GTB SCH (09:39)
[2017-02-05] MEDS: MULTIVITAMINS THERAPEUTIC TAB GTB SCH (09:39)
[2017-02-05] MEDS: LACTULOSE 30ML CUP PO SCH ×2 (09:39→21:29)
[2017-02-05] MEDS: ENOXAPARIN 40 MG/0.4 ML SYG SC SCH (10:03)
[2017-02-05] MEDS: CEFEPIME 1GM/50 ML (PMX) 50 ML IVPB SCH ×2 (10:06→22:33)
[2017-02-05] MEDS: COLLAGENASE 30 GM TUBE TOP SCH (10:07)
--- NOTE | 2017-02-05 14:07 | PN ---
Date/Time of Note Date/Time of Note DATE: 02/05/17 TIME: 14:05 Assessment/Plan VTE Prophylaxis VTE Prophylaxis Intervention: SCD's Lines/Catheters IV Catheter Type (from Nrs): Peripheral IV Urinary Cath still in place: Yes Reason Cath still needed: urinary retention Assessment/Plan Chief Complaint/Hosp Course Assessment/Plan -Sepsis, most likely secondary to urinary tract infection and possible postobstructive pneumonia. Dr. Coleman is following infection disease consultation, follow-up on cultures, continue antibiotics per ID. -Left lung squamous carcinoma -Ventilator dependent respiratory failure with tracheostomy, continue breathing treatments. -COPD -Dysphagia with PEG -History of cardiopulmonary arrest -Multiple wounds present on admission, that is post debridement at last admission. -Hypothyroidism -Chronic urinary retention with George catheter Further recommendations based on clinical course. Plan of care discussed with Dr. Dozier Problems: Exam/Review of Systems Vital Signs Vitals Vital Signs Date Time Temp Pulse Resp B/P Pulse Ox O2 Delivery O2 Flow Rate FiO2 02/05/17 13:25 98 19 98 30 02/05/17 12:10 98.7 108/73 02/01/17 23:00 Mechanical Ventilator Intake and Output 02/04/17 02/04/17 02/05/17 15:00 23:00 07:00 Intake Total 450 ml 1250 ml 2255 ml Output Total 800 ml 1500 ml Balance 450 ml 450 ml 755 ml Exam Constitutional: alert Head: normocephalic Neck: other, supple Respiratory: diminished breath sounds (Tracheostomy the base of the neck) Cardiovascular: nl pulses Gastrointestinal: other (G-tube), soft Genitourinary - Female: other (George catheter) Extremities: normal pulses Neurological: confused Results Result Diagram: 02/05/17 0556 02/05/17 0556 Results 24 hrs Laboratory Tests Test 02/04/17 22:47 02/05/17 05:56 Bedside Glucose 142 White Blood Count 19.4 H Red Blood Count 3.30 L Hemoglobin 8.8 L Hematocrit 29.3 L Mean Corpuscular Volume 88.8 Mean Corpuscular Hemoglobin 26.7 L Mean Corpuscular Hemoglobin Concent 30.0 L Red Cell Distribution Width 16.5 H Platelet Count 450 H Mean Platelet Volume 9.1 Neutrophils % 76.1 Lymphocytes % 9.6 L Monocytes % 9.6 Eosinophils % 3.3 Basophils % 0.5 Nucleated Red Blood Cells % 0.0 Neutrophils # (Manual) 15 H Lymphocytes # 1.9 Monocytes # 1.9 H Eosinophils # 0.7 H Basophils # 0.1 Nucleated Red Blood Cells # 0.0 Sodium Level 132 L Potassium Level 3.4 L Chloride Level 95 L Carbon Dioxide Level 29 Anion Gap 11 Blood Urea Nitrogen 16 Creatinine 0.54 Glucose Level 112 Calcium Level 10.7 H Medications Medications Current Medications Sodium Chloride (NS) 1,000 ml @ 75 mls/hr [id number] IV Last administered on 02/04 23:00; Admin Dose 75 MLS/HR; Start 02/01/17 at 22:18 Ondansetron HCl (Zofran Inj) 4 mg Q6H PRN IV NAUSEA AND/OR VOMITING Last administered on 02/05/17 09:36; Admin Dose 4 MG; Start 02/01/17 at 22:30 Acetaminophen (Tylenol Tab) 650 mg Q6H PRN PO PAIN LEVEL 1-3 OR FEVER Last administered on 02/04/17 21:08; Admin Dose 650 MG; Start 02/01/17 at 22:30 Acetaminophen/ Hydrocodone Bitart ([place] (5/325)) 1 tab Q6H PRN PO MODERATE PAIN LEVEL 4-6 Last administered on 02/04/17 21:07; Admin Dose 1 TAB; Start at 22:30 Hydromorphone HCl (Dilaudid) 0.5 mg Q4H PRN IV SEVERE PAIN LEVEL 7-10 Last administered on 02/05/17 11:35; Admin Dose 0.5 MG; Start 02/01/17 at 22:30 Docusate Sodium (Colace) 100 mg Q12H PRN PO CONSTIPATION; Start 02/01/17 at 22: 30 Magnesium Hydroxide (Milk Of Mag) 30 ml DAILY PRN PO CONSTIPATION; Start at 22:30 Bisacodyl (Dulcolax) 5 mg DAILY PRN PO CONSTIPATION; Start 02/01/17 at 22:30 Zolpidem Tartrate (Ambien) 5 mg QHS PRN PO SLEEP; Start 02/01/17 at 22:30 Lansoprazole (Prevacid) 30 mg DAILY@06 GTB Last administered on 02/05/17 06:19 ; Admin Dose 30 MG; Start 02/02/17 at 06:00 Enoxaparin Sodium 40 mg 40 mg DAILY SC Last administered on 02/05/17 10:03; Admin Dose 40 MG; Start 02/02/17 at 09:00 Cefepime HCl (Maxipime 1gm/50 ml (Pmx)) 50 ml @ 100 mls/hr Q12 IVPB Last administered on 02/05/17 10:06; Admin Dose 100 MLS/HR; Start 02/02/17 at 09:00 Ascorbic Acid (Vitamin C) 500 mg BID GTB Last administered on 02/05/17 09:38; Admin Dose 500 MG; Start 02/02/17 at 09:00 Diazepam (Valium) 5 mg DAILY PRN GTB ANXIETY Last administered on 02/02/17 09: 29; Admin Dose 5 MG; Start 02/01/17 at 22:30 Duloxetine HCl (Cymbalta) 20 mg DAILY GTB Last administered on 02/05/17 09:38 ; Admin Dose 20 MG; Start 02/02/17 at 09:00 Multivitamins Therapeutic (Theragran) 1 tab DAILY GTB Last administered on 02/05 09:39; Admin Dose 1 TAB; Start 02/02/17 at 09:00 Zinc Sulfate (Zinc Sulfate) 220 mg DAILY GTB Last administered on 02/05/17 09: 39; Admin Dose 220 MG; Start 02/02/17 at 09:00 Lactobacillus Acidophilus (Florajen3 Capsule) 1 each TID NGT Last administered on 02/05/17 09:39; Admin Dose 1 EACH; Start 02/02/17 at 09:00 Lactulose (Enulose) 20 gm BID PO Last administered on 02/05/17 09:39; Admin Dose 20 GM; Start 02/02/17 at 09:00 Collagenase (Santyl) 1 applic DAILY TOP Last administered on 02/05/17 10:07; Admin Dose 1 APPLIC; Start 02/02/17 at 09:00 Collagenase 1 applic 1 applic PRN PRN TOP PRN; Start 02/02/17 at 04:00 Trimethoprim/ Sulfamethoxazole/ Dextrose (Bactrim/D5W) 510 ml @ 350 mls/hr Q8 IVPB Last administered on 02/05/17 13:53; Admin Dose 350 MLS/HR; Start at 17:00 REBECCA ISLAS Feb 05, 2017 14:07
[2017-02-05] MEDS ORDERED: POTASSIUM CHLORIDE 20 MEQ POWDER FOR ORAL SOLN PO PRN (14:30)
--- NOTE | 2017-02-05 15:13 | CONS ---
Date/Time of Note Date/Time of Note DATE: 02/05/17 TIME: 15:11 Assessment/Plan Assessment/Plan Chief Complaint/Hosp Course Looks comfortable, no fevers. Temperature 98.7 pulse 95 respirations 20 blood pressure 108/73 saturation 98 on 30 FiO2 WBC 19.4 H&H 8.8 and 29.3 platelets 450 BUN 16 creatinine 0.54 Wound culture growing carbapenem resistant E. coli, VRE, MRSA, Morganella Morgagni, Acinetobacter Noe, Providencia stuartii. Urine culture growing Acinetobacter INDWELLINGS: Trach, PEG, and George. ANTIMICROBIALS: The patient is on IV Bactrim and cefepime. ALLERGIES: PENICILLIN. PHYSICAL EXAMINATION: GENERAL: This is a cachectic, well-developed, elderly woman who is awake, in no distress. HEENT: Head atraumatic, normocephalic. Sclerae anicteric. Buccal mucosa dry. NECK: Supple. Tracheostomy present. CHEST: Rise symmetrical. Breath sounds diminished at the bases with scattered crackles. HEART: S1, S2. ABDOMEN: Soft, bowel sounds present. EXTREMITIES: Without cyanosis. ASSESSMENT: 1. Recurrent sepsis likely secondary number 2. 2. Multidrug resistant urinary tract infection (UTI). 3. Chronic respiratory failure, possibly obstructive pneumonia. 4. Lung cancer. 5. Unstageable sacral decubitus, wound culture growing multiple multidrug- resistant organisms, likely colonized. 6. Chronic cachexia. 7. Anemia. 8. History of cardiopulmonary arrest. 9. MRSA + nares 10. Persistent leukocytosis, multifactorial PLAN: Patient remains clinically stable, continue abx, local wound care, vent per pulmonary, consider surgical evaluation for wound management DW staff Problems: Consultation Date/Type/Reason Admit Date/Time Feb 01, 2017 at 15:50 Type of Consultation: id Exam/Review of Systems Vital Signs Vitals Vital Signs Date Time Temp Pulse Resp B/P Pulse Ox O2 Delivery O2 Flow Rate FiO2 02/05/17 13:25 98 19 98 30 02/05/17 12:10 98.7 108/73 02/01/17 23:00 Mechanical Ventilator Intake and Output 02/04/17 02/04/17 02/05/17 15:00 23:00 07:00 Intake Total 450 ml 1250 ml 2255 ml Output Total 800 ml 1500 ml Balance 450 ml 450 ml 755 ml Results Result Diagram: 02/05/17 0556 02/05/17 0556 Results 24 hrs Laboratory Tests Test 02/04/17 22:47 02/05/17 05:56 Bedside Glucose 142 White Blood Count 19.4 H Red Blood Count 3.30 L Hemoglobin 8.8 L Hematocrit 29.3 L Mean Corpuscular Volume 88.8 Mean Corpuscular Hemoglobin 26.7 L Mean Corpuscular Hemoglobin Concent 30.0 L Red Cell Distribution Width 16.5 H Platelet Count 450 H Mean Platelet Volume 9.1 Neutrophils % 76.1 Lymphocytes % 9.6 L Monocytes % 9.6 Eosinophils % 3.3 Basophils % 0.5 Nucleated Red Blood Cells % 0.0 Neutrophils # (Manual) 15 H Lymphocytes # 1.9 Monocytes # 1.9 H Eosinophils # 0.7 H Basophils # 0.1 Nucleated Red Blood Cells # 0.0 Sodium Level 132 L Potassium Level 3.4 L Chloride Level 95 L Carbon Dioxide Level 29 Anion Gap 11 Blood Urea Nitrogen 16 Creatinine 0.54 Glucose Level 112 Calcium Level 10.7 H Medications Medications Current Medications Ondansetron HCl (Zofran Inj) 4 mg Q6H PRN IV NAUSEA AND/OR VOMITING Last administered on 02/05/17 09:36; Admin Dose 4 MG; Start 02/01/17 at 22:30 Acetaminophen (Tylenol Tab) 650 mg Q6H PRN PO PAIN LEVEL 1-3 OR FEVER Last administered on 02/04/17 21:08; Admin Dose 650 MG; Start 02/01/17 at 22:30 Acetaminophen/ Hydrocodone Bitart ([place] (5/325)) 1 tab Q6H PRN PO MODERATE PAIN LEVEL 4-6 Last administered on 02/04/17 21:07; Admin Dose 1 TAB; Start at 22:30 Hydromorphone HCl (Dilaudid) 0.5 mg Q4H PRN IV SEVERE PAIN LEVEL 7-10 Last administered on 02/05/17 14:35; Admin Dose 0.5 MG; Start 02/01/17 at 22:30 Docusate Sodium (Colace) 100 mg Q12H PRN PO CONSTIPATION; Start 02/01/17 at 22: 30 Magnesium Hydroxide (Milk Of Mag) 30 ml DAILY PRN PO CONSTIPATION; Start at 22:30 Bisacodyl (Dulcolax) 5 mg DAILY PRN PO CONSTIPATION; Start 02/01/17 at 22:30 Zolpidem Tartrate (Ambien) 5 mg QHS PRN PO SLEEP; Start 02/01/17 at 22:30 Lansoprazole (Prevacid) 30 mg DAILY@06 GTB Last administered on 02/05/17 06:19 ; Admin Dose 30 MG; Start 02/02/17 at 06:00 Enoxaparin Sodium 40 mg 40 mg DAILY SC Last administered on 02/05/17 10:03; Admin Dose 40 MG; Start 02/02/17 at 09:00 Cefepime HCl (Maxipime 1gm/50 ml (Pmx)) 50 ml @ 100 mls/hr Q12 IVPB Last administered on 02/05/17 10:06; Admin Dose 100 MLS/HR; Start 02/02/17 at 09:00 Ascorbic Acid (Vitamin C) 500 mg BID GTB Last administered on 02/05/17 09:38; Admin Dose 500 MG; Start 02/02/17 at 09:00 Diazepam (Valium) 5 mg DAILY PRN GTB ANXIETY Last administered on 02/02/17 09: 29; Admin Dose 5 MG; Start 02/01/17 at 22:30 Duloxetine HCl (Cymbalta) 20 mg DAILY GTB Last administered on 02/05/17 09:38 ; Admin Dose 20 MG; Start 02/02/17 at 09:00 Multivitamins Therapeutic (Theragran) 1 tab DAILY GTB Last administered on 02/05 09:39; Admin Dose 1 TAB; Start 02/02/17 at 09:00 Zinc Sulfate (Zinc Sulfate) 220 mg DAILY GTB Last administered on 02/05/17 09: 39; Admin Dose 220 MG; Start 02/02/17 at 09:00 Lactobacillus Acidophilus (Florajen3 Capsule) 1 each TID NGT Last administered on 02/05/17 09:39; Admin Dose 1 EACH; Start 02/02/17 at 09:00 Lactulose (Enulose) 20 gm BID PO Last administered on 02/05/17 09:39; Admin Dose 20 GM; Start 02/02/17 at 09:00 Collagenase (Santyl) 1 applic DAILY TOP Last administered on 02/05/17 10:07; Admin Dose 1 APPLIC; Start 02/02/17 at 09:00 Collagenase 1 applic 1 applic PRN PRN TOP PRN; Start 02/02/17 at 04:00 Trimethoprim/ Sulfamethoxazole/ Dextrose (Bactrim/D5W) 510 ml @ 350 mls/hr Q8 IVPB Last administered on 02/05/17t 13:53; Admin Dose 350 MLS/HR; Start at 17:00 RUBIN MAYEN NP Feb 05, 2017 15:13
--- NOTE | 2017-02-05 19:26 | CONS ---
Date/Time of Note Date/Time of Note DATE: 02/05/17 TIME: 19:19 Assessment/Plan Assessment/Plan Chief Complaint/Hosp Course 1. Multiple decubitus ulcers with debris -Offload -Optimize nutrition -Vitamin C -Local care -Debridement sacrococcyx prn 2. Normocytic anemia: chronic disease vs. acute bleed; no rogerio bleed noted: s/ p PRBC transfusion -monitor -transfuse as needed -stool for OB 3. Sepsis: UTI +/- Bacteremia +/- PNA -supportive -abx per sensitivities -pulmonary toilette 4. Acute on chronic diastolic heart failure -Judicious fluid management -Cardiac optimization 5. Chronic urinary retention with George 6. Hypoalbuminemia: inflammation/infection +/- malnutrition -as above -nutrition optimization 7. Depression. -Medical management 8. Hypothyroidism by history; TSH elevated -Synthroid 9. . 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 Chronic pain syndrome. Continue pain management. Thank you, Problems: Consultation Date/Type/Reason Admit Date/Time Feb 01, 2017 at 15:50 Date of Consultation: Feb 05, 2017 Type of Consultation: General Surgical Reason for Consultation Pressure ulceration, giant Referring Provider: DRE LOBATO MD Hx of Present Illness Gumaro García is a 66 yo female with multiple comorbidities and readmissions to hospital 2nd hypotension and low H/H. There are no current fevers, chills, nausea, vomiting, or abdominal pain. No bloating. No bright red blood per rectum. No hematemesis , melena or hematochezia. Additionally, she has multiple decubitus ulcerations. Surgical consult is obtained further evaluation and treatment. Constitutional: No chills, No diaphoresis, No febrile, No requiring O2 Eyes: No visual change ENT: No bleeding Respiratory: No cough, No shortness of breath Cardiovascular: lightheadedness, No chest pain, No edema Gastrointestinal: No nausea, No vomiting Genitourinary: No bleeding, No dysuria Neurologic: No focal-weakness Psychological: confusion (mild), No nl mood/affect Immunologic: no complaints Past Medical History Left lung squamous cell carcinoma in need of radiation and chemotherapy Chronic obstructive pulmonary disease Depression Hypothyroidism Chronic pain syndrome Deconditioning Hypertension Iron deficiency anemia Urinary retention Recent MRSA of nares and urinary tract infection Mild anasarca Sigmoid colonic diverticulosis Sepsis TIA Non-ST elevation [place] Multiple decubitus ulcerations Tobacco dependence Congestive heart failure Past Surgical History Back surgery Cholecystectomy Wound debridement Family History Significant Family History: no pertinent family hx Social History Alcohol Use: none Smoking Status: Former smoker Exam/Review of Systems Vital Signs Vitals Vital Signs Date Time Temp Pulse Resp B/P Pulse Ox O2 Delivery O2 Flow Rate FiO2 02/05/17 17:05 94 19 98 35 02/05/17 16:33 97.4 118/74 02/01/17 23:00 Mechanical Ventilator Intake and Output 02/04/17 02/04/17 02/05/17 15:00 23:00 07:00 Intake Total 450 ml 1250 ml 2255 ml Output Total 800 ml 1500 ml Balance 450 ml 450 ml 755 ml Exam Constitutional: alert, (trached), oriented, No distress Psych: flat affect, no complaints Head: atraumatic, normocephalic Eyes: nl conjunctiva, nl lids, nl sclera ENMT: mucosa pink and moist, nl external ears & nose, nl lips & teeth Neck: non-tender, other (tracheostomy, non-reddened, no drainage noted), supple Respiratory: normal effort, no wheezing Cardiovascular: nl pulses, regular rate and rhythm Gastrointestinal: non-tender, other (gtube, site non-tender, non-reddened), soft Musculoskeletal: nl extremities to inspection Extremities: normal pulses Neurological: nl mental status, No nl strength (gen weakness) Skin: No rash; wounds (sacral wound with min drainage pink wound bed and min slough) Results Result Diagram: 02/05/17 0556 02/05/17 0556 Results 24 hrs Laboratory Tests Test 02/04/17 22:47 02/05/17 05:56 Bedside Glucose 142 White Blood Count 19.4 H Red Blood Count 3.30 L Hemoglobin 8.8 L Hematocrit 29.3 L Mean Corpuscular Volume 88.8 Mean Corpuscular Hemoglobin 26.7 L Mean Corpuscular Hemoglobin Concent 30.0 L Red Cell Distribution Width 16.5 H Platelet Count 450 H Mean Platelet Volume 9.1 Neutrophils % 76.1 Lymphocytes % 9.6 L Monocytes % 9.6 Eosinophils % 3.3 Basophils % 0.5 Nucleated Red Blood Cells % 0.0 Neutrophils # (Manual) 15 H Lymphocytes # 1.9 Monocytes # 1.9 H Eosinophils # 0.7 H Basophils # 0.1 Nucleated Red Blood Cells # 0.0 Sodium Level 132 L Potassium Level 3.4 L Chloride Level 95 L Carbon Dioxide Level 29 Anion Gap 11 Blood Urea Nitrogen 16 Creatinine 0.54 Glucose Level 112 Calcium Level 10.7 H Medications Medications Current Medications Ondansetron HCl (Zofran Inj) 4 mg Q6H PRN IV NAUSEA AND/OR VOMITING Last administered on 02/05/17 09:36; Admin Dose 4 MG; Start 02/01/17 at 22:30 Acetaminophen (Tylenol Tab) 650 mg Q6H PRN PO PAIN LEVEL 1-3 OR FEVER Last administered on 02/04/17 21:08; Admin Dose 650 MG; Start 02/01/17 at 22:30 Acetaminophen/ Hydrocodone Bitart ([place] (5/325)) 1 tab Q6H PRN PO MODERATE PAIN LEVEL 4-6 Last administered on 02/04/17 21:07; Admin Dose 1 TAB; Start at 22:30 Hydromorphone HCl (Dilaudid) 0.5 mg Q4H PRN IV SEVERE PAIN LEVEL 7-10 Last administered on 02/05/17 18:33; Admin Dose 0.5 MG; Start 02/01/17 at 22:30 Docusate Sodium (Colace) 100 mg Q12H PRN PO CONSTIPATION; Start 02/01/17 at 22: 30 Magnesium Hydroxide (Milk Of Mag) 30 ml DAILY PRN PO CONSTIPATION; Start at 22:30 Bisacodyl (Dulcolax) 5 mg DAILY PRN PO CONSTIPATION; Start 02/01/17 at 22:30 Zolpidem Tartrate (Ambien) 5 mg QHS PRN PO SLEEP; Start 02/01/17 at 22:30 Lansoprazole (Prevacid) 30 mg DAILY@06 GTB Last administered on 02/05/17 06:19 ; Admin Dose 30 MG; Start 02/02/17 at 06:00 Enoxaparin Sodium 40 mg 40 mg DAILY SC Last administered on 02/05/17 10:03; Admin Dose 40 MG; Start 02/02/17 at 09:00 Cefepime HCl (Maxipime 1gm/50 ml (Pmx)) 50 ml @ 100 mls/hr Q12 IVPB Last administered on 02/05/17 10:06; Admin Dose 100 MLS/HR; Start 02/02/17 at 09:00 Ascorbic Acid (Vitamin C) 500 mg BID GTB Last administered on 02/05/17 09:38; Admin Dose 500 MG; Start 02/02/17 at 09:00 Diazepam (Valium) 5 mg DAILY PRN GTB ANXIETY Last administered on 02/02/17 09: 29; Admin Dose 5 MG; Start 02/01/17 at 22:30 Duloxetine HCl (Cymbalta) 20 mg DAILY GTB Last administered on 02/05/17 09:38 ; Admin Dose 20 MG; Start 02/02/17 at 09:00 Multivitamins Therapeutic (Theragran) 1 tab DAILY GTB Last administered on 02/05 09:39; Admin Dose 1 TAB; Start 02/02/17 at 09:00 Zinc Sulfate (Zinc Sulfate) 220 mg DAILY GTB Last administered on 02/05/17 09: 39; Admin Dose 220 MG; Start 02/02/17 at 09:00 Lactobacillus Acidophilus (Florajen3 Capsule) 1 each TID NGT Last administered on 02/05/17 09:39; Admin Dose 1 EACH; Start 02/02/17 at 09:00 Lactulose (Enulose) 20 gm BID PO Last administered on 02/05/17 09:39; Admin Dose 20 GM; Start 02/02/17 at 09:00 Collagenase (Santyl) 1 applic DAILY TOP Last administered on 02/05/17 10:07; Admin Dose 1 APPLIC; Start 02/02/17 at 09:00 Collagenase 1 applic 1 applic PRN PRN TOP PRN; Start 02/02/17 at 04:00 Trimethoprim/ Sulfamethoxazole/ Dextrose (Bactrim/D5W) 510 ml @ 350 mls/hr Q8 IVPB Last administered on 02/05/17 13:53; Admin Dose 350 MLS/HR; Start at 17:00 ZAK POSEY MD Feb 05, 2017 19:26
[2017-02-06] VITALS (25 sets, daily range): BP systolic 100–125; BP diastolic 59–86; PULSE 93–102; RESP 16–34
[2017-02-06] MEDS: ALBUTEROL 18 GM INHALER INH SCH ×4 (02:00→20:13)
[2017-02-06] MEDS: IPRATROPIUM (HFA) 12.9 GM INHALER INH SCH ×4 (02:00→20:12)
[2017-02-06] MEDS: HYDROmorphONE 1 MG/ML SYG IV PRN ×5 (03:02→22:09)
[2017-02-06] MEDS: LANSOPRAZOLE 30 MG CAP GTB SCH (06:33)
[2017-02-06] MEDS: TRIMETHOPRIM/SULFAMETHOXAZOLE 10 ML in DEXTROSE 5% 500 ML IVPB SCH ×4 (06:33→22:55)
[2017-02-06 06:57] LABS: BASOPHIL # 0.1 10^3/ul (0.0-0.1); BASOPHILS % 0.6 % (0.0-2.0); EOSINOPHILS # 0.5 10^3/ul (0.0-0.5); EOSINOPHILS % 2.5 % (0.0-7.0); HEMATOCRIT 29.5 % (37.0-47.0); HEMOGLOBIN 9.1 g/dl (12.0-16.0); LYMPHOCYTES # 2.1 10^3/ul (0.8-2.9); LYMPHOCYTES % 11.2 % (15.0-51.0); MEAN CORPUSCULAR HEMOGLOBIN 26.7 pg (29.0-33.0); MEAN CORPUSCULAR HGB CONC 30.8 g/dl (32.0-37.0); MEAN CORPUSCULAR VOLUME 86.5 fl (82.0-101.0); MONOCYTE # 1.5 10^3/ul (0.3-0.9); MONOCYTES % 7.9 % (0.0-11.0); PLATELET COUNT 444 10^3/UL (140-415); RED BLOOD COUNT 3.41 10^6/ul (4.20-5.40); RED CELL DISTRIBUTION WIDTH 16.5 % (11.5-14.5); WHITE BLOOD COUNT 18.9 10^3/ul (4.8-10.8)
[2017-02-06 07:27] LABS: CALCIUM 11.6 mg/dl (8.4-10.2); CREATININE 0.48 mg/dl (0.44-1.00); POTASSIUM 3.8 mmol/L (3.5-5.1)
[2017-02-06] MEDS: ASCORBIC ACID 500 MG TAB GTB SCH ×2 (09:17→21:01)
[2017-02-06] MEDS: LACTULOSE 30ML CUP PO SCH ×2 (09:17→21:01)
[2017-02-06] MEDS: DIAZEPAM 5 MG TAB GTB PRN (09:17)
[2017-02-06] MEDS: ZINC SULFATE 220 MG CAP GTB SCH (09:17)
[2017-02-06] MEDS: DULOXETINE 20 MG CAP DR GTB SCH (09:18)
[2017-02-06] MEDS: CEFEPIME 1GM/50 ML (PMX) 50 ML IVPB SCH ×2 (09:18→21:01)
[2017-02-06] MEDS: MULTIVITAMINS THERAPEUTIC TAB GTB SCH (09:18)
[2017-02-06] MEDS: L ACIDOPHIL/B LACTIS/B LONGUM CAPSULE NGT SCH ×3 (09:18→21:01)
[2017-02-06] MEDS: COLLAGENASE 30 GM TUBE TOP SCH (09:19)
[2017-02-06] MEDS: ENOXAPARIN 40 MG/0.4 ML SYG SC SCH (09:38)
--- NOTE | 2017-02-06 10:39 | PN ---
Date/Time of Note Date/Time of Note DATE: 02/06/17 TIME: 10:31 Assessment/Plan Lines/Catheters IV Catheter Type (from [facility] Peripheral IV George in Place (from [facility]): Yes Assessment/Plan Chief Complaint/Hosp Course 1. Multiple decubitus ulcers with debris -Offload -Optimize nutrition -Vitamin C -Local care -Debridement sacrococcyx prn 2. Normocytic anemia: chronic disease vs. acute bleed; no rogerio bleed noted: s/ p PRBC transfusion -monitor -transfuse as needed -stool for OB 3. Sepsis with hypotension: UTI +/- Bacteremia +/- PNA: hypotension improved -supportive -abx per sensitivities -pulmonary toilette 4. Acute on chronic diastolic heart failure -Judicious fluid management -Cardiac optimization 5. Chronic urinary retention with Geroge 6. Hypoalbuminemia: inflammation/infection +/- malnutrition -as above -nutrition optimization 7. Depression. -Medical management 8. Hypothyroidism by history; TSH elevated -Synthroid 9. . 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 Chronic pain syndrome. Continue pain management. 11. UTI: -abx per sensitivity/ID 12. Leukocytosis: 2/2 bacteremia, uti, wounds; improving -abx per sensitivity -supportive Problems: Subjective 24 Hr Interval Summary comfortable on vent. Nonverbal indicators of pain not present. Leukocytosis. No fevers, chills, n/v/d/dysuria, pain, sob, congested cough. mod drainage from wounds. Exam/Review of Systems Vital Signs Vitals Vital Signs Date Time Temp Pulse Resp B/P Pulse Ox O2 Delivery O2 Flow Rate FiO2 02/06/17 09:24 94 02/06/17 09:05 25 98 35 02/06/17 07:28 98.2 121/65 Intake and Output 02/05/17 02/05/17 02/06/17 15:00 23:00 07:00 Intake Total 380 ml 380 ml Output Total 2500 ml 950 ml Balance -2120 ml -570 ml Exam Free Text/Dictation Constitutional: alert, (trached), oriented, No distress, somnolent Psych: flat affect, no complaints Head: atraumatic, normocephalic Eyes: nl conjunctiva, nl lids, nl sclera ENMT: mucosa pink and moist, nl external ears & nose, nl lips & teeth Neck: non-tender, other (tracheostomy, non-reddened, no drainage noted), supple Respiratory: normal effort, no wheezing Cardiovascular: nl pulses, regular rate and rhythm Gastrointestinal: non-tender, other (gtube, site non-tender, non-reddened), soft Musculoskeletal: nl extremities to inspection Extremities: normal pulses Neurological: nl mental status, No nl strength (gen weakness) Skin: No rash; wounds (sacral wound with min drainage pink wound bed and min slough) Results Result Diagram: 02/06/1762102/06/17 06 JERRY SAHU NP Feb 06, 2017 10:39
--- NOTE | 2017-02-06 17:08 | PN ---
Date/Time of Note Date/Time of Note DATE: 02/06/17 TIME: 17:06 Assessment/Plan VTE Prophylaxis VTE Prophylaxis Intervention: SCD's Lines/Catheters IV C[facility]ter Type (from [facility]): Saline Lock Urinary Cath still in place: Yes Reason Cath still needed: urinary retention Assessment/Plan Chief Complaint/Hosp Course Patient's continues to have persistent leukocytosis, no fever, continued on ventilatory support and G-tube feeding. Assessment/Plan -Sepsis, most likely secondary to urinary tract infection and possible postobstructive pneumonia. Dr. Coleman is following infection disease consultation, follow-up on cultures, continue antibiotics per ID. -Left lung squamous carcinoma -Ventilator dependent respiratory failure with tracheostomy, continue breathing treatments. -COPD -Dysphagia with PEG -History of cardiopulmonary arrest -Multiple wounds present on admission, that is post debridement at last admission. -Hypothyroidism -Chronic urinary retention with George catheter Further recommendations based on clinical course. Plan of care discussed with Dr. Dozier Problems: Exam/Review of Systems Vital Signs Vitals Vital Signs Date Time Temp Pulse Resp B/P Pulse Ox O2 Delivery O2 Flow Rate FiO2 02/06/17 16:31 96 02/06/17 15:14 98.0 18 110/59 97 02/06/17 15:10 35 Intake and Output 02/05/17 02/05/17 02/06/17 15:00 23:00 07:00 Intake Total 380 ml 380 ml Output Total 2500 ml 950 ml Balance -2120 ml -570 ml Exam Constitutional: alert Head: normocephalic Neck: other, supple Respiratory: diminished breath sounds (Tracheostomy the base of the neck) Cardiovascular: nl pulses Gastrointestinal: other (G-tube), soft Genitourinary - Female: other (George catheter) Extremities: normal pulses Neurological: confused Results Result Diagram: 02/06/17 0622 02/06/17 0622 Results 24 hrs Laboratory Tests Test 02/06/17 06:06 02/06/17 06:22 Lab Scanned Report BLOOD TRANSFUSION White Blood Count 18.9 H Red Blood Count 3.41 L Hemoglobin 9.1 L Hematocrit 29.5 L Mean Corpuscular Volume 86.5 Mean Corpuscular Hemoglobin 26.7 L Mean Corpuscular Hemoglobin Concent 30.8 L Red Cell Distribution Width 16.5 H Platelet Count 444 H Mean Platelet Volume 9.0 Neutrophils % 77.0 Lymphocytes % 11.2 L Monocytes % 7.9 Eosinophils % 2.5 Basophils % 0.6 Nucleated Red Blood Cells % 0.0 Neutrophils # (Manual) 15 H Lymphocytes # 2.1 Monocytes # 1.5 H Eosinophils # 0.5 Basophils # 0.1 Nucleated Red Blood Cells # 0.0 Sodium Level 132 L Potassium Level 3.8 Chloride Level 90 L Carbon Dioxide Level 28 Anion Gap 18 #H Blood Urea Nitrogen 14 Creatinine 0.48 Glucose Level 85 Calcium Level 11.6 H Medications Medications Current Medications Ondansetron HCl (Zofran Inj) 4 mg Q6H PRN IV NAUSEA AND/OR VOMITING Last administered on 02/05/17 09:36; Admin Dose 4 MG; Start 02/01/17 at 22:30 Acetaminophen (Tylenol Tab) 650 mg Q6H PRN PO PAIN LEVEL 1-3 OR FEVER Last administered on 02/04/17 21:08; Admin Dose 650 MG; Start 02/01/17 at 22:30 Acetaminophen/ Hydrocodone Bitart ([place] (5/325)) 1 tab Q6H PRN PO MODERATE PAIN LEVEL 4-6 Last administered on 02/04/17 21:07; Admin Dose 1 TAB; Start at 22:30 Hydromorphone HCl (Dilaudid) 0.5 mg Q4H PRN IV SEVERE PAIN LEVEL 7-10 Last administered on 02/06/17 14:13; Admin Dose 0.5 MG; Start 02/01/17 at 22:30 Docusate Sodium (Colace) 100 mg Q12H PRN PO CONSTIPATION; Start 02/01/17 at 22: 30 Magnesium Hydroxide (Milk Of Mag) 30 ml DAILY PRN PO CONSTIPATION; Start at 22:30 Bisacodyl (Dulcolax) 5 mg DAILY PRN PO CONSTIPATION; Start 02/01/17 at 22:30 Zolpidem Tartrate (Ambien) 5 mg QHS PRN PO SLEEP; Start 02/01/17 at 22:30 Lansoprazole (Prevacid) 30 mg DAILY@06 GTB Last administered on 02/06/17 06:33 ; Admin Dose 30 MG; Start 02/02/17 at 06:00 Enoxaparin Sodium 40 mg 40 mg DAILY SC Last administered on 02/06/17 09:38; Admin Dose 40 MG; Start 02/02/17 at 09:00 Cefepime HCl (Maxipime 1gm/50 ml (Pmx)) 50 ml @ 100 mls/hr Q12 IVPB Last administered on 02/06/17 09:18; Admin Dose 100 MLS/HR; Start 02/02/17 at 09:00 Ascorbic Acid (Vitamin C) 500 mg BID GTB Last administered on 02/06/17 09:17; Admin Dose 500 MG; Start 02/02/17 at 09:00 Diazepam (Valium) 5 mg DAILY PRN GTB ANXIETY Last administered on 02/06/17 09: 17; Admin Dose 5 MG; Start 02/01/17 at 22:30 Duloxetine HCl (Cymbalta) 20 mg DAILY GTB Last administered on 02/06/17 09:18 ; Admin Dose 20 MG; Start 02/02/17 at 09:00 Multivitamins Therapeutic (Theragran) 1 tab DAILY GTB Last administered on 02/06 09:18; Admin Dose 1 TAB; Start 02/02/17 at 09:00 Zinc Sulfate (Zinc Sulfate) 220 mg DAILY GTB Last administered on 02/06/17 09: 17; Admin Dose 220 MG; Start 02/02/17 at 09:00 Lactobacillus Acidophilus (Florajen3 Capsule) 1 each TID NGT Last administered on 02/06/17 13:10; Admin Dose 1 EACH; Start 02/02/17 at 09:00 Lactulose (Enulose) 20 gm BID PO Last administered on 02/06/17 09:17; Admin Dose 20 GM; Start 02/02/17 at 09:00 Collagenase (Santyl) 1 applic DAILY TOP Last administered on 02/06/17 09:19; Admin Dose 1 APPLIC; Start 02/02/17 at 09:00 Collagenase 1 applic 1 applic PRN PRN TOP PRN; Start 02/02/17 at 04:00 Trimethoprim/ Sulfamethoxazole/ Dextrose (Bactrim/D5W) 510 ml @ 350 mls/hr Q8 IVPB Last administered on 02/06/17 16:26; Admin Dose 350 MLS/HR; Start at 17:00 REBECCA ISLAS Feb 06, 2017 17:08
--- NOTE | 2017-02-06 20:24 | PN ---
DATE: 02/06/2017 SUBJECTIVE DATA: No events overnight. The patient is lying comfortably in bed. He is awake, in no distress. No fevers. Temperature 98, pulse 78, respirations 16, blood pressure 125/68. Saturation 97 percent on 30 FiO2. LABORATORY: WBC 18.9, H and H 9.1 and 29.5, platelets 444,000. No shift. BUN 14, creatinine 0.48. Antimicrobials: Patient is on IV Bactrim and cefepime. Indwelling: Trach, PEG, George. PHYSICAL EXAMINATION: GENERAL: Well-developed, fragile, chronically ill-appearing, elderly woman who is awake and in no distress. HEENT: Head atraumatic, normocephalic. Sclerae anicteric. Buccal mucosa dry. NECK: Supple. Tracheostomy present. CHEST: Rise symmetrical. Breath sounds with scattered rhonchi. HEART: S1, S2. ABDOMEN: Soft, bowel sounds present. EXTREMITIES: Without cyanosis. SKIN: With unstageable sacral wound. ASSESSMENT: 1. Recurrent sepsis. 2. Recurrent multidrug resistant urinary tract infection. 3. Unstageable sacral wound, with wound culture growing multiple multidrug resistant organism consistent with colonization. 4. Lung mass. Possible obstructive pneumonia. 5. Anemia. 6. Methicillin-resistant Staphylococcus aureus nares colonization. 7. Severe malnutrition with ongoing cachexia. 8. Persistent leukocytosis, likely malignancy induced and secondary to all of her other problems. PLAN: The patient remains hemodynamically stable, on appropriate antimicrobials. Surgery on the case. Continue present care. Antibiotics. Dictated By: Johnny Chapa NP /[email or web address] /Document#: [id number]
[2017-02-07] VITALS (24 sets, daily range): BP systolic 99–141; BP diastolic 58–73; PULSE 90–97; RESP 18–33
[2017-02-07] MEDS: HYDROmorphONE 1 MG/ML SYG IV PRN ×5 (02:03→23:17)
[2017-02-07] MEDS: ALBUTEROL 18 GM INHALER INH SCH ×4 (02:07→20:32)
[2017-02-07] MEDS: IPRATROPIUM (HFA) 12.9 GM INHALER INH SCH ×4 (02:07→20:32)
[2017-02-07] MEDS: LANSOPRAZOLE 30 MG CAP GTB SCH (06:19)
[2017-02-07] MEDS: TRIMETHOPRIM/SULFAMETHOXAZOLE 10 ML in DEXTROSE 5% 500 ML IVPB SCH ×3 (06:52→23:14)
[2017-02-07 06:59] LABS: ABNORMAL IP MESSAGE 1; BASOPHIL # 0.1 10^3/ul (0.0-0.1); BASOPHILS % 0.4 % (0.0-2.0); EOSINOPHILS # 0.5 10^3/ul (0.0-0.5); HEMATOCRIT 25.7 % (37.0-47.0); HEMOGLOBIN 7.9 g/dl (12.0-16.0); LYMPHOCYTES # 1.8 10^3/ul (0.8-2.9); MEAN CORPUSCULAR HEMOGLOBIN 26.6 pg (29.0-33.0); MEAN CORPUSCULAR HGB CONC 30.7 g/dl (32.0-37.0); MEAN CORPUSCULAR VOLUME 86.5 fl (82.0-101.0); MEAN PLATELET VOLUME 9.3 fl (7.4-10.4); MONOCYTE # 1.6 10^3/ul (0.3-0.9); MONOCYTES % 8.7 % (0.0-11.0); NEUTROPHILS % 77.1 % (39.0-77.0); PLATELET COUNT 439 10^3/UL (140-415); RED BLOOD COUNT 2.97 10^6/ul (4.20-5.40); RED CELL DISTRIBUTION WIDTH 16.4 % (11.5-14.5); WHITE BLOOD COUNT 17.8 10^3/ul (4.8-10.8)
[2017-02-07 07:08] LABS: POSITIVE DIFF @See below
[2017-02-07 07:29] LABS: CREATININE 0.56 mg/dl (0.44-1.00); POTASSIUM 3.9 mmol/L (3.5-5.1)
[2017-02-07] MEDS: ENOXAPARIN 40 MG/0.4 ML SYG SC SCH (09:43)
[2017-02-07] MEDS: CEFEPIME 1GM/50 ML (PMX) 50 ML IVPB SCH ×2 (09:43→22:27)
[2017-02-07] MEDS: ASCORBIC ACID 500 MG TAB GTB SCH ×2 (09:45→22:27)
[2017-02-07] MEDS: COLLAGENASE 30 GM TUBE TOP SCH (09:45)
[2017-02-07] MEDS: MULTIVITAMINS THERAPEUTIC TAB GTB SCH (09:46)
[2017-02-07] MEDS: DULOXETINE 20 MG CAP DR GTB SCH (09:46)
[2017-02-07] MEDS: L ACIDOPHIL/B LACTIS/B LONGUM CAPSULE NGT SCH ×3 (09:46→23:45)
[2017-02-07] MEDS: ZINC SULFATE 220 MG CAP GTB SCH (09:46)
[2017-02-07] MEDS: LACTULOSE 30ML CUP PO SCH ×2 (09:46→22:27)
[2017-02-07 14:46] LABS: HEMATOCRIT 24.7 % (37.0-47.0); HEMOGLOBIN 7.7 g/dl (12.0-16.0)
--- NOTE | 2017-02-07 15:07 | PN ---
Date/Time of Note Date/Time of Note DATE: 02/07/17 TIME: 15:04 Assessment/Plan VTE Prophylaxis VTE Prophylaxis Intervention: SCD's Lines/Catheters [facility] Saline [facility] Urinary Cath still in place: Yes Reason Cath still needed: urinary retention Assessment/Plan Chief Complaint/Hosp Course Patient's hemoglobin dropped to 7.9, will recheck hemoglobin if still below 8 we will transfuse 1 unit of packed red blood cell, checks stool for OB. Patient is comfortable on vent, remains afebrile, tolerates G-tube feeding. Assessment/Plan -Sepsis, most likely secondary to urinary tract infection and possible postobstructive pneumonia. Dr. Coleman is following infection disease consultation, follow-up on cultures, continue antibiotics per ID. -Left lung squamous carcinoma -Anemia, check stool for OB, transfuse 1 unit of packed red blood cells, continue to monitor H&H. -Ventilator dependent respiratory failure with tracheostomy, continue breathing treatments. -COPD -Dysphagia with PEG -History of cardiopulmonary arrest -Multiple wounds present on admission, that is post debridement at last admission. -Hypothyroidism -Chronic urinary retention with George catheter Further recommendations based on clinical course. Plan of care discussed with Dr. Dozier Problems: Exam/Review of Systems Vital Signs Vitals Vital Signs Date Time Temp Pulse Resp B/P Pulse Ox O2 Delivery O2 Flow Rate FiO2 02/07/17 12:59 98.5 88 23 141/60 92 02/07/17 09:07 40 Intake and Output 02/06/17 02/06/17 02/07/17 15:00 23:00 07:00 Intake Total 50 ml 1550 ml 1100 ml Output Total 600 ml 1700 ml Balance 50 ml 950 ml -600 ml Exam Constitutional: alert Head: normocephalic Neck: other, supple Respiratory: diminished breath sounds (Tracheostomy the base of the neck) Cardiovascular: nl pulses Gastrointestinal: other (G-tube), soft Genitourinary - Female: other (George catheter) Extremities: normal pulses Neurological: confused Results Result Diagram: 02/07/17 1420 02/07/17 0552 Results 24 hrs Laboratory Tests Test 02/07/17 05:52 02/07/17 14:20 White Blood Count 17.8 H Red Blood Count 2.97 L Hemoglobin 7.9 L 7.7 L Hematocrit 25.7 L 24.7 L Mean Corpuscular Volume 86.5 Mean Corpuscular Hemoglobin 26.6 L Mean Corpuscular Hemoglobin Concent 30.7 L Red Cell Distribution Width 16.4 H Platelet Count 439 H Mean Platelet Volume 9.3 Neutrophils % 77.1 H Lymphocytes % 10.0 L Monocytes % 8.7 Eosinophils % 3.0 Basophils % 0.4 Nucleated Red Blood Cells % 0.0 Neutrophils # (Manual) 14 H Lymphocytes # 1.8 Monocytes # 1.6 H Eosinophils # 0.5 Basophils # 0.1 Nucleated Red Blood Cells # 0.0 Sodium Level 123 L Potassium Level 3.9 Chloride Level 89 L Carbon Dioxide Level 29 Anion Gap 9 # Blood Urea Nitrogen 15 Creatinine 0.56 Glucose Level 98 Calcium Level 11.0 H Medications Medications Current Medications Ondansetron HCl (Zofran Inj) 4 mg Q6H PRN IV NAUSEA AND/OR VOMITING Last administered on 02/05/17 09:36; Admin Dose 4 MG; Start 02/01/17 at 22:30 Acetaminophen (Tylenol Tab) 650 mg Q6H PRN PO PAIN LEVEL 1-3 OR FEVER Last administered on 02/04/17 21:08; Admin Dose 650 MG; Start 02/01/17 at 22:30 Acetaminophen/ Hydrocodone Bitart ([place] (5/325)) 1 tab Q6H PRN PO MODERATE PAIN LEVEL 4-6 Last administered on 02/04/17 21:07; Admin Dose 1 TAB; Start at 22:30 Hydromorphone HCl (Dilaudid) 0.5 mg Q4H PRN IV SEVERE PAIN LEVEL 7-10 Last administered on 02/07/17 14:50; Admin Dose 0.5 MG; Start 02/01/17 at 22:30 Docusate Sodium (Colace) 100 mg Q12H PRN PO CONSTIPATION; Start 02/01/17 at 22: 30 Magnesium Hydroxide (Milk Of Mag) 30 ml DAILY PRN PO CONSTIPATION; Start at 22:30 Bisacodyl (Dulcolax) 5 mg DAILY PRN PO CONSTIPATION; Start 02/01/17 at 22:30 Zolpidem Tartrate (Ambien) 5 mg QHS PRN PO SLEEP; Start 02/01/17 at 22:30 Lansoprazole (Prevacid) 30 mg DAILY@06 GTB Last administered on 02/07/17 06:19 ; Admin Dose 30 MG; Start 02/02/17 at 06:00 Enoxaparin Sodium 40 mg 40 mg DAILY SC Last administered on 02/07/17 09:43; Admin Dose 40 MG; Start 02/02/17 at 09:00 Cefepime HCl (Maxipime 1gm/50 ml (Pmx)) 50 ml @ 100 mls/hr Q12 IVPB Last administered on 02/07/17 09:43; Admin Dose 100 MLS/HR; Start 02/02/17 at 09:00 Ascorbic Acid (Vitamin C) 500 mg BID GTB Last administered on 02/07/17 09:45; Admin Dose 500 MG; Start 02/02/17 at 09:00 Diazepam (Valium) 5 mg DAILY PRN GTB ANXIETY Last administered on 02/06/17 09: 17; Admin Dose 5 MG; Start 02/01/17 at 22:30 Duloxetine HCl (Cymbalta) 20 mg DAILY GTB Last administered on 02/07/17 09:46 ; Admin Dose 20 MG; Start 02/02/17 at 09:00 Multivitamins Therapeutic (Theragran) 1 tab DAILY GTB Last administered on 02/07 09:46; Admin Dose 1 TAB; Start 02/02/17 at 09:00 Zinc Sulfate (Zinc Sulfate) 220 mg DAILY GTB Last administered on 02/07/17 09: 46; Admin Dose 220 MG; Start 02/02/17 at 09:00 Lactobacillus Acidophilus (Florajen3 Capsule) 1 each TID NGT Last administered on 02/07/17 13:58; Admin Dose 1 EACH; Start 02/02/17 at 09:00 Lactulose (Enulose) 20 gm BID PO Last administered on 02/07/17 09:46; Admin Dose 20 GM; Start 02/02/17 at 09:00 Collagenase (Santyl) 1 applic DAILY TOP Last administered on 02/07/17 09:45; Admin Dose 1 APPLIC; Start 02/02/17 at 09:00 Collagenase 1 applic 1 applic PRN PRN TOP PRN; Start 02/02/17 at 04:00 Trimethoprim/ Sulfamethoxazole/ Dextrose (Bactrim/D5W) 510 ml @ 350 mls/hr Q8 IVPB Last administered on 02/07/17t 06:52; Admin Dose 350 MLS/HR; Start at 17:00 REBECCA ISLAS Feb 07, 2017 15:07
--- NOTE | 2017-02-07 16:07 | CONS ---
Date/Time of Note Date/Time of Note DATE: 02/07/17 TIME: 16:05 Assessment/Plan Assessment/Plan Chief Complaint/Hosp Course SUBJECTIVE DATA: No events overnight. The patient is lying comfortably in bed. He is awake, in no distress. No fevers. Antimicrobials: Patient is on IV Bactrim and cefepime. Indwelling: Trach, PEG, George. PHYSICAL EXAMINATION: GENERAL: Well-developed, fragile, chronically ill-appearing, elderly woman who is awake and in no distress. HEENT: Head atraumatic, normocephalic. Sclerae anicteric. Buccal mucosa dry. NECK: Supple. Tracheostomy present. CHEST: Rise symmetrical. Breath sounds with scattered rhonchi. HEART: S1, S2. ABDOMEN: Soft, bowel sounds present. EXTREMITIES: Without cyanosis. SKIN: With unstageable sacral wound. ASSESSMENT: 1. Recurrent sepsis. 2. Recurrent multidrug resistant urinary tract infection. 3. Unstageable sacral wound, with wound culture growing multiple multidrug resistant organism consistent with colonization. 4. Lung mass. Possible obstructive pneumonia. 5. Anemia. 6. Methicillin-resistant Staphylococcus aureus nares colonization. 7. Severe malnutrition with ongoing cachexia. 8. Persistent leukocytosis, likely malignancy induced and secondary to all of her other problems. PLAN: The patient remains stable, continue present care, abx, local wound care per surgical rec-s, s/p bld tx today [facility] staff Problems: Consultation Date/Type/Reason Admit Date/Time Feb 01, 2017 at 15:50 Type of Consultation: id Referring Provider: DRE LOBATO MD Exam/Review of Systems Vital Signs Vitals Vital Signs Date Time Temp Pulse Resp B/P Pulse Ox O2 Delivery O2 Flow Rate FiO2 02/07/17 12:59 98.5 88 23 141/60 92 02/07/17 09:07 40 Intake and Output 02/06/17 02/06/17 02/07/17 15:00 23:00 07:00 Intake Total 50 ml 1550 ml 1100 ml Output Total 600 ml 1700 ml Balance 50 ml 950 ml -600 ml Results Result Diagram: 02/07/17 1420 02/07/17 0552 Results 24 hrs Laboratory Tests Test 02/07/17 05:52 02/07/17 14:20 White Blood Count 17.8 H Red Blood Count 2.97 L Hemoglobin 7.9 L 7.7 L Hematocrit 25.7 L 24.7 L Mean Corpuscular Volume 86.5 Mean Corpuscular Hemoglobin 26.6 L Mean Corpuscular Hemoglobin Concent 30.7 L Red Cell Distribution Width 16.4 H Platelet Count 439 H Mean Platelet Volume 9.3 Neutrophils % 77.1 H Lymphocytes % 10.0 L Monocytes % 8.7 Eosinophils % 3.0 Basophils % 0.4 Nucleated Red Blood Cells % 0.0 Neutrophils # (Manual) 14 H Lymphocytes # 1.8 Monocytes # 1.6 H Eosinophils # 0.5 Basophils # 0.1 Nucleated Red Blood Cells # 0.0 Sodium Level 123 L Potassium Level 3.9 Chloride Level 89 L Carbon Dioxide Level 29 Anion Gap 9 # Blood Urea Nitrogen 15 Creatinine 0.56 Glucose Level 98 Calcium Level 11.0 H Medications Medications Current Medications Ondansetron HCl (Zofran Inj) 4 mg Q6H PRN IV NAUSEA AND/OR VOMITING Last administered on 02/05/17 09:36; Admin Dose 4 MG; Start 02/01/17 at 22:30 Acetaminophen (Tylenol Tab) 650 mg Q6H PRN PO PAIN LEVEL 1-3 OR FEVER Last administered on 02/04/17 21:08; Admin Dose 650 MG; Start 02/01/17 at 22:30 Acetaminophen/ Hydrocodone Bitart ([place] (5/325)) 1 tab Q6H PRN PO MODERATE PAIN LEVEL 4-6 Last administered on 02/04/17 21:07; Admin Dose 1 TAB; Start at 22:30 Hydromorphone HCl (Dilaudid) 0.5 mg Q4H PRN IV SEVERE PAIN LEVEL 7-10 Last administered on 02/07/17 14:50; Admin Dose 0.5 MG; Start 02/01/17 at 22:30 Docusate Sodium (Colace) 100 mg Q12H PRN PO CONSTIPATION; Start 02/01/17 at 22: 30 Magnesium Hydroxide (Milk Of Mag) 30 ml DAILY PRN PO CONSTIPATION; Start at 22:30 Bisacodyl (Dulcolax) 5 mg DAILY PRN PO CONSTIPATION; Start 02/01/17 at 22:30 Zolpidem Tartrate (Ambien) 5 mg QHS PRN PO SLEEP; Start 02/01/17 at 22:30 Lansoprazole (Prevacid) 30 mg DAILY@06 GTB Last administered on 02/07/17 06:19 ; Admin Dose 30 MG; Start 02/02/17 at 06:00 Enoxaparin Sodium 40 mg 40 mg DAILY SC Last administered on 02/07/17 09:43; Admin Dose 40 MG; Start 02/02/17 at 09:00 Cefepime HCl (Maxipime 1gm/50 ml (Pmx)) 50 ml @ 100 mls/hr Q12 IVPB Last administered on 02/07/17 09:43; Admin Dose 100 MLS/HR; Start 02/02/17 at 09:00 Ascorbic Acid (Vitamin C) 500 mg BID GTB Last administered on 02/07/17 09:45; Admin Dose 500 MG; Start 02/02/17 at 09:00 Diazepam (Valium) 5 mg DAILY PRN GTB ANXIETY Last administered on 02/06/17 09: 17; Admin Dose 5 MG; Start 02/01/17 at 22:30 Duloxetine HCl (Cymbalta) 20 mg DAILY GTB Last administered on 02/07/17 09:46 ; Admin Dose 20 MG; Start 02/02/17 at 09:00 Multivitamins Therapeutic (Theragran) 1 tab DAILY GTB Last administered on 02/07 09:46; Admin Dose 1 TAB; Start 02/02/17 at 09:00 Zinc Sulfate (Zinc Sulfate) 220 mg DAILY GTB Last administered on 02/07/17 09: 46; Admin Dose 220 MG; Start 02/02/17 at 09:00 Lactobacillus Acidophilus (Florajen3 Capsule) 1 each TID NGT Last administered on 02/07/17 13:58; Admin Dose 1 EACH; Start 02/02/17 at 09:00 Lactulose (Enulose) 20 gm BID PO Last administered on 02/07/17 09:46; Admin Dose 20 GM; Start 02/02/17 at 09:00 Collagenase (Santyl) 1 applic DAILY TOP Last administered on 02/07/17 09:45; Admin Dose 1 APPLIC; Start 02/02/17 at 09:00 Collagenase 1 applic 1 applic PRN PRN TOP PRN; Start 02/02/17 at 04:00 Trimethoprim/ Sulfamethoxazole/ Dextrose (Bactrim/D5W) 510 ml @ 350 mls/hr Q8 IVPB Last administered on 02/07/17t 15:39; Admin Dose 350 MLS/HR; Start at 17:00 RUBIN MAYEN NP Feb 07, 2017 16:07
[2017-02-08] VITALS (23 sets, daily range): BP systolic 111–122; BP diastolic 55–77; PULSE 88–100; RESP 18–36
--- NOTE | 2017-02-08 01:36 | PN ---
Date/Time of Note Date/Time of Note DATE: 02/07/17 TIME: 11:34 Assessment/Plan Lines/Catheters IV Catheter Type (from Nrs): Saline Lock George in Place (from Nrs): Yes Assessment/Plan Chief Complaint/Hosp Course 1. Multiple decubitus ulcers with debris -Offload -Optimize nutrition -Vitamin C -Local care -Debridement sacrococcyx prn 2. Normocytic anemia: chronic disease vs. acute bleed; no rogerio bleed noted: s/ p PRBC transfusion -monitor -transfuse as needed -stool for OB 3. Sepsis with hypotension: UTI +/- Bacteremia +/- PNA: hypotension improved -supportive -abx per sensitivities -pulmonary toilette 4. Acute on chronic diastolic heart failure -Judicious fluid management -Cardiac optimization 5. Chronic urinary retention with George 6. Hypoalbuminemia: inflammation/infection +/- malnutrition -as above -nutrition optimization 7. Depression. -Medical management 8. Hypothyroidism by history; TSH elevated -Synthroid 9. . 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 Chronic pain syndrome. Continue pain management. 11. UTI: -abx per sensitivity/ID 12. Leukocytosis: 2/2 bacteremia, uti, wounds; improving -abx per sensitivity -supportive Thank you, Late entry 02/07 Problems: Subjective 24 Hr Interval Summary Comfortable on vent. Nonverbal indicators of pain not present. Leukocytosis. No fevers, chills, n/v/d/dysuria, pain, sob, congested cough. mod drainage from wounds. Exam/Review of Systems Vital Signs Vitals Vital Signs Date Time Temp Pulse Resp B/P Pulse Ox O2 Delivery O2 Flow Rate FiO2 02/08/17 00:05 98 02/07/17 23:51 97.9 22 106/70 100 02/07/17 22:59 35 Intake and Output 02/07/17 02/07/17 02/08/17 15:00 23:00 07:00 Intake Total 50 ml 1090 ml Output Total 1200 ml Balance 50 ml -110 ml Exam Free Text/Dictation Constitutional: alert, (trached), oriented, No distress Psych: flat Head: atraumatic, normocephalic Eyes: nl conjunctiva, nl lids, nl sclera ENMT: mucosa pink and moist, nl external ears & nose, nl lips & teeth Neck: non-tender, other (tracheostomy, non-reddened, no drainage noted), supple Respiratory: normal effort, no wheezing Cardiovascular: nl pulses, regular rate and rhythm Gastrointestinal: non-tender, other (gtube, site non-tender, non-reddened), soft Musculoskeletal: nl extremities to inspection Extremities: normal pulses Neurological: nl mental status, No nl strength (gen weakness) Skin: No rash; wounds (sacral wound with min drainage pink wound bed and min slough) Results Result Diagram: 02/07/17 1420 02/07/17 0552 ZAK POSEY MD Feb 08, 2017 01:36
[2017-02-08] MEDS: ALBUTEROL 18 GM INHALER INH SCH ×4 (01:44→20:47)
[2017-02-08] MEDS: IPRATROPIUM (HFA) 12.9 GM INHALER INH SCH ×4 (01:44→20:47)
[2017-02-08] MEDS: HYDROmorphONE 1 MG/ML SYG IV PRN ×4 (03:17→21:26)
[2017-02-08] MEDS: LANSOPRAZOLE 30 MG CAP GTB SCH (05:06)
[2017-02-08] MEDS: TRIMETHOPRIM/SULFAMETHOXAZOLE 10 ML in DEXTROSE 5% 500 ML IVPB SCH ×3 (05:54→21:28)
[2017-02-08 07:29] LABS: ABNORMAL IP MESSAGE 1; BASOPHIL # 0.1 10^3/ul (0.0-0.1); BASOPHILS % 0.3 % (0.0-2.0); EOSINOPHILS # 0.4 10^3/ul (0.0-0.5); EOSINOPHILS % 2.5 % (0.0-7.0); HEMATOCRIT 32.4 % (37.0-47.0); HEMOGLOBIN 10.4 g/dl (12.0-16.0); LYMPHOCYTES # 1.8 10^3/ul (0.8-2.9); MEAN CORPUSCULAR HEMOGLOBIN 27.1 pg (29.0-33.0); MEAN CORPUSCULAR HGB CONC 32.1 g/dl (32.0-37.0); MEAN CORPUSCULAR VOLUME 84.4 fl (82.0-101.0); MEAN PLATELET VOLUME 9.1 fl (7.4-10.4); MONOCYTE # 1.7 10^3/ul (0.3-0.9); MONOCYTES % 9.6 % (0.0-11.0); NEUTROPHILS % 76.7 % (39.0-77.0); PLATELET COUNT 409 10^3/UL (140-415); RED BLOOD COUNT 3.84 10^6/ul (4.20-5.40); RED CELL DISTRIBUTION WIDTH 16.6 % (11.5-14.5); WHITE BLOOD COUNT 17.7 10^3/ul (4.8-10.8)
[2017-02-08 07:35] LABS: POSITIVE DIFF @See below
[2017-02-08] MEDS: LACTULOSE 30ML CUP PO SCH ×2 (08:27→20:27)
[2017-02-08] MEDS: ZINC SULFATE 220 MG CAP GTB SCH (08:28)
[2017-02-08] MEDS: ASCORBIC ACID 500 MG TAB GTB SCH ×2 (08:28→20:26)
[2017-02-08] MEDS: MULTIVITAMINS THERAPEUTIC TAB GTB SCH (08:28)
[2017-02-08] MEDS: L ACIDOPHIL/B LACTIS/B LONGUM CAPSULE NGT SCH ×3 (08:28→20:26)
[2017-02-08] MEDS: DULOXETINE 20 MG CAP DR GTB SCH (08:28)
[2017-02-08] MEDS: CEFEPIME 1GM/50 ML (PMX) 50 ML IVPB SCH ×2 (08:28→20:27)
[2017-02-08] MEDS: ENOXAPARIN 40 MG/0.4 ML SYG SC SCH (08:34)
[2017-02-08 09:17] LABS: CALCIUM 11.7 mg/dl (8.4-10.2); CREATININE 0.49 mg/dl (0.44-1.00); POTASSIUM 4.2 mmol/L (3.5-5.1)
[2017-02-08] MEDS: COLLAGENASE 30 GM TUBE TOP SCH (12:28)
--- NOTE | 2017-02-08 13:25 | PN ---
Date/Time of Note Date/Time of Note DATE: 02/08/17 TIME: 12:48 Assessment/Plan VTE Prophylaxis VTE Prophylaxis Intervention: other Lines/Catheters IV Catheter Type (from Nrs): Saline Lock Urinary Cath still in place: Yes Reason Cath still needed: urinary retention Assessment/Plan Assessment/Plan -Sepsis, most likely secondary to urinary tract infection and possible postobstructive pneumonia. - Dr. Coleman is following infection disease consultation, follow-up on cultures, continue antibiotics per ID. - Left lung squamous carcinoma - Hyponatremia - nephrology consult- Dr Yazan Zapata notified -Anemia, check stool for OB, transfuse 1 unit of packed red blood cells, continue to monitor H&H. -Ventilator dependent respiratory failure with tracheostomy, continue breathing treatments. - pulmonary consult - Dr Neri notified - Sacral decub-surgery follows -COPD -Dysphagia with PEG -History of cardiopulmonary arrest -Multiple wounds present on admission, that is post debridement at last admission. -Hypothyroidism -Chronic urinary retention with George catheter Further recommendations based on clinical course. Plan of care discussed with Dr. Dozier Subjective 24 Hr Interval Summary Free Text/Dictation nad, alert, open eyes, answers simple Qs, afebrile, pain management follows, sp 1 unit PRBC- H/H improved, sacral decub- surgery follows- dw staff Subjective hx not possible: pt non-verbal Constitutional: requiring O2 Exam/Review of Systems Vital Signs Vitals Vital Signs Date Time Temp Pulse Resp B/P Pulse Ox O2 Delivery O2 Flow Rate FiO2 02/08/17 11:31 98.5 78 22 122/75 99 02/08/17 10:27 35 Intake and Output 02/07/17 02/07/17 02/08/17 15:00 23:00 07:00 Intake Total 50 ml 1950 ml 560 ml Output Total 2200 ml Balance 50 ml -250 ml 560 ml Exam Constitutional: alert, frail Neck: other (trach intact) Respiratory: diminished breath sounds Cardiovascular: nl pulses, other (SR), regular rate and rhythm Gastrointestinal: soft Musculoskeletal: muscle weakness Extremities: normal pulses Skin: other (sacral decub) Results Result Diagram: 02/08/17 0643 02/08/17 0643 Results 24 hrs Laboratory Tests Test 02/07/17 14:20 02/08/17 06:43 Hemoglobin 7.7 L 10.4 #L Hematocrit 24.7 L 32.4 #L White Blood Count 17.7 H Red Blood Count 3.84 #L Mean Corpuscular Volume 84.4 Mean Corpuscular Hemoglobin 27.1 L Mean Corpuscular Hemoglobin Concent 32.1 Red Cell Distribution Width 16.6 H Platelet Count 409 Mean Platelet Volume 9.1 Neutrophils % 76.7 Lymphocytes % 10.0 L Monocytes % 9.6 Eosinophils % 2.5 Basophils % 0.3 Nucleated Red Blood Cells % 0.0 Neutrophils # (Manual) 14 H Lymphocytes # 1.8 Monocytes # 1.7 H Eosinophils # 0.4 Basophils # 0.1 Nucleated Red Blood Cells # 0.0 Sodium Level 125 L Potassium Level 4.2 Chloride Level 87 L Carbon Dioxide Level 26 Anion Gap 16 # Blood Urea Nitrogen 15 Creatinine 0.49 Glucose Level 122 Calcium Level 11.7 H Medications Medications Current Medications Ondansetron HCl (Zofran Inj) 4 mg Q6H PRN IV NAUSEA AND/OR VOMITING Last administered on 02/05/17 09:36; Admin Dose 4 MG; Start 02/01/17 at 22:30 Acetaminophen (Tylenol Tab) 650 mg Q6H PRN PO PAIN LEVEL 1-3 OR FEVER Last administered on 02/04/17 21:08; Admin Dose 650 MG; Start 02/01/17 at 22:30 Acetaminophen/ Hydrocodone Bitart ([place] (5/325)) 1 tab Q6H PRN PO MODERATE PAIN LEVEL 4-6 Last administered on 02/04/17 21:07; Admin Dose 1 TAB; Start at 22:30 Hydromorphone HCl (Dilaudid) 0.5 mg Q4H PRN IV SEVERE PAIN LEVEL 7-10 Last administered on 02/08/17 12:29; Admin Dose 0.5 MG; Start 02/01/17 at 22:30 Docusate Sodium (Colace) 100 mg Q12H PRN PO CONSTIPATION; Start 02/01/17 at 22: 30 Magnesium Hydroxide (Milk Of Mag) 30 ml DAILY PRN PO CONSTIPATION; Start at 22:30 Bisacodyl (Dulcolax) 5 mg DAILY PRN PO CONSTIPATION; Start 02/01/17 at 22:30 Zolpidem Tartrate (Ambien) 5 mg QHS PRN PO SLEEP; Start 02/01/17 at 22:30 Lansoprazole (Prevacid) 30 mg DAILY@06 GTB Last administered on 02/08/17 05:06 ; Admin Dose 30 MG; Start 02/02/17 at 06:00 Enoxaparin Sodium 40 mg 40 mg DAILY SC Last administered on 02/08/17 08:34; Admin Dose 40 MG; Start 02/02/17 at 09:00 Cefepime HCl (Maxipime 1gm/50 ml (Pmx)) 50 ml @ 100 mls/hr Q12 IVPB Last administered on 02/08/17 08:28; Admin Dose 100 MLS/HR; Start 02/02/17 at 09:00 Ascorbic Acid (Vitamin C) 500 mg BID GTB Last administered on 02/08/17 08:28; Admin Dose 500 MG; Start 02/02/17 at 09:00 Diazepam (Valium) 5 mg DAILY PRN GTB ANXIETY Last administered on 02/06/17 09: 17; Admin Dose 5 MG; Start 02/01/17 at 22:30 Duloxetine HCl (Cymbalta) 20 mg DAILY GTB Last administered on 02/08/17 08:28 ; Admin Dose 20 MG; Start 02/02/17 at 09:00 Multivitamins Therapeutic (Theragran) 1 tab DAILY GTB Last administered on 02/08 08:28; Admin Dose 1 TAB; Start 02/02/17 at 09:00 Zinc Sulfate (Zinc Sulfate) 220 mg DAILY GTB Last administered on 02/08/17 08: 28; Admin Dose 220 MG; Start 02/02/17 at 09:00 Lactobacillus Acidophilus (Florajen3 Capsule) 1 each TID NGT Last administered on 02/08/17 12:29; Admin Dose 1 EACH; Start 02/02/17 at 09:00 Lactulose (Enulose) 20 gm BID PO Last administered on 02/08/17 08:27; Admin Dose 20 GM; Start 02/02/17 at 09:00 Collagenase (Santyl) 1 applic DAILY TOP Last administered on 02/08/17 12:28; Admin Dose 1 APPLIC; Start 02/02/17 at 09:00 Collagenase 1 applic 1 applic PRN PRN TOP PRN; Start 02/02/17 at 04:00 Trimethoprim/ Sulfamethoxazole/ Dextrose (Bactrim/D5W) 510 ml @ 350 mls/hr Q8 IVPB Last administered on 02/08/17t 05:54; Admin Dose 350 MLS/HR; Start at 17:00 VIKASH ACSTANEDA Feb 08, 2017 12:59
--- NOTE | 2017-02-08 14:45 | CONS ---
Date/Time of Note Date/Time of Note DATE: 02/08/17 TIME: 14:44 Assessment/Plan Assessment/Plan Chief Complaint/Hosp Course SUBJECTIVE DATA: No events overnight. The patient is lying comfortably in bed. She is awake, in no distress. No fevers. Antimicrobials: IV Bactrim and cefepime. Indwelling: Trach, PEG, George. PHYSICAL EXAMINATION: GENERAL: Well-developed, fragile, chronically ill-appearing, elderly woman who is awake and in no distress. HEENT: Head atraumatic, normocephalic. Sclerae anicteric. Buccal mucosa dry. NECK: Supple. Tracheostomy present. CHEST: Rise symmetrical. Breath sounds with scattered rhonchi. HEART: S1, S2. ABDOMEN: Soft, bowel sounds present. EXTREMITIES: Without cyanosis. SKIN: With unstageable sacral wound. ASSESSMENT: 1. Recurrent sepsis. 2. Recurrent multidrug resistant urinary tract infection. 3. Unstageable sacral wound, with wound culture growing multiple multidrug resistant organism consistent with colonization. 4. Lung mass. Possible obstructive pneumonia. 5. Anemia. 6. Methicillin-resistant Staphylococcus aureus nares colonization. 7. Severe malnutrition with ongoing cachexia. 8. Persistent leukocytosis, likely malignancy induced and secondary to all of her other problems. PLAN: The patient remains stable, continue present care, abx, local wound care per surgical rec-s [facility] staff Problems: Consultation Date/Type/Reason Admit Date/Time Feb 01, 2017 at 15:50 Type of Consultation: id Referring Provider: DRE LOBATO MD Exam/Review of Systems Vital Signs Vitals Vital Signs Date Time Temp Pulse Resp B/P Pulse Ox O2 Delivery O2 Flow Rate FiO2 02/08/17 12:12 88 02/08/17 11:31 98.5 22 122/75 99 02/08/17 10:27 35 Intake and Output 02/07/17 02/07/17 02/08/17 15:00 23:00 07:00 Intake Total 50 ml 1950 ml 560 ml Output Total 2200 ml Balance 50 ml -250 ml 560 ml Results Result Diagram: 02/08/17 0643 02/08/17 0643 Results 24 hrs Laboratory Tests Test 02/08/17 06:43 White Blood Count 17.7 H Red Blood Count 3.84 #L Hemoglobin 10.4 #L Hematocrit 32.4 #L Mean Corpuscular Volume 84.4 Mean Corpuscular Hemoglobin 27.1 L Mean Corpuscular Hemoglobin Concent 32.1 Red Cell Distribution Width 16.6 H Platelet Count 409 Mean Platelet Volume 9.1 Neutrophils % 76.7 Lymphocytes % 10.0 L Monocytes % 9.6 Eosinophils % 2.5 Basophils % 0.3 Nucleated Red Blood Cells % 0.0 Neutrophils # (Manual) 14 H Lymphocytes # 1.8 Monocytes # 1.7 H Eosinophils # 0.4 Basophils # 0.1 Nucleated Red Blood Cells # 0.0 Sodium Level 125 L Potassium Level 4.2 Chloride Level 87 L Carbon Dioxide Level 26 Anion Gap 16 # Blood Urea Nitrogen 15 Creatinine 0.49 Glucose Level 122 Calcium Level 11.7 H Medications Medications Current Medications Ondansetron HCl (Zofran Inj) 4 mg Q6H PRN IV NAUSEA AND/OR VOMITING Last administered on 02/05/17 09:36; Admin Dose 4 MG; Start 02/01/17 at 22:30 Acetaminophen (Tylenol Tab) 650 mg Q6H PRN PO PAIN LEVEL 1-3 OR FEVER Last administered on 02/04/17 21:08; Admin Dose 650 MG; Start 02/01/17 at 22:30 Acetaminophen/ Hydrocodone Bitart ([place] (5/325)) 1 tab Q6H PRN PO MODERATE PAIN LEVEL 4-6 Last administered on 02/04/17 21:07; Admin Dose 1 TAB; Start at 22:30 Hydromorphone HCl (Dilaudid) 0.5 mg Q4H PRN IV SEVERE PAIN LEVEL 7-10 Last administered on 02/08/17 12:29; Admin Dose 0.5 MG; Start 02/01/17 at 22:30 Docusate Sodium (Colace) 100 mg Q12H PRN PO CONSTIPATION; Start 02/01/17 at 22: 30 Magnesium Hydroxide (Milk Of Mag) 30 ml DAILY PRN PO CONSTIPATION; Start at 22:30 Bisacodyl (Dulcolax) 5 mg DAILY PRN PO CONSTIPATION; Start 02/01/17 at 22:30 Zolpidem Tartrate (Ambien) 5 mg QHS PRN PO SLEEP; Start 02/01/17 at 22:30 Lansoprazole (Prevacid) 30 mg DAILY@06 GTB Last administered on 02/08/17 05:06 ; Admin Dose 30 MG; Start 02/02/17 at 06:00 Enoxaparin Sodium 40 mg 40 mg DAILY SC Last administered on 02/08/17 08:34; Admin Dose 40 MG; Start 02/02/17 at 09:00 Cefepime HCl (Maxipime 1gm/50 ml (Pmx)) 50 ml @ 100 mls/hr Q12 IVPB Last administered on 02/08/17 08:28; Admin Dose 100 MLS/HR; Start 02/02/17 at 09:00 Ascorbic Acid (Vitamin C) 500 mg BID GTB Last administered on 02/08/17 08:28; Admin Dose 500 MG; Start 02/02/17 at 09:00 Diazepam (Valium) 5 mg DAILY PRN GTB ANXIETY Last administered on 02/06/17 09: 17; Admin Dose 5 MG; Start 02/01/17 at 22:30 Duloxetine HCl (Cymbalta) 20 mg DAILY GTB Last administered on 02/08/17 08:28 ; Admin Dose 20 MG; Start 02/02/17 at 09:00 Multivitamins Therapeutic (Theragran) 1 tab DAILY GTB Last administered on 02/08 08:28; Admin Dose 1 TAB; Start 02/02/17 at 09:00 Zinc Sulfate (Zinc Sulfate) 220 mg DAILY GTB Last administered on 02/08/17 08: 28; Admin Dose 220 MG; Start 02/02/17 at 09:00 Lactobacillus Acidophilus (Florajen3 Capsule) 1 each TID NGT Last administered on 02/08/17 12:29; Admin Dose 1 EACH; Start 02/02/17 at 09:00 Lactulose (Enulose) 20 gm BID PO Last administered on 02/08/17 08:27; Admin Dose 20 GM; Start 02/02/17 at 09:00 Collagenase (Santyl) 1 applic DAILY TOP Last administered on 02/08/17 12:28; Admin Dose 1 APPLIC; Start 02/02/17 at 09:00 Collagenase 1 applic 1 applic PRN PRN TOP PRN; Start 02/02/17 at 04:00 Trimethoprim/ Sulfamethoxazole/ Dextrose (Bactrim/D5W) 510 ml @ 350 mls/hr Q8 IVPB Last administered on 02/08/17 13:04; Admin Dose 350 MLS/HR; Start at 17:00 RUBIN MAYEN NP Feb 08, 2017 14:45
--- NOTE | 2017-02-08 15:47 | CONS ---
Date/Time of Note Date/Time of Note DATE: 02/08/17 TIME: 15:47 Assessment/Plan Assessment/Plan Additional Assessment/Plan 1. 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 Recurrent sepsis 3. Recurrent Multidrug Resistant Urinary tract infection 4. Sacral wound 5. Chronic resp failure 6.S/P Tracheostomy, S/p PEG tube placement 7. Lung CA- Squamous Cell CA Plan: Continue current IV abx pt is known to me from previous admission, pt has acute on ch ronic hyponatremai due to SAIDH and Hypovolemia Pain control ID following will conitnue to follow up on patient, if Na continues to drop then we will consider Tolvaptan. Thanks for consultation Consultation Date/Type/Reason Admit Date/Time Feb 01, 2017 at 15:50 Date of Consultation: Feb 08, 2017 Type of Consultation: NEPHROLOGY Reason for Consultation Hyponatremia, Hypercalcemia Referring Provider: DRE LOBATO MD Subjective hx not possible: pt non-verbal Constitutional: requiring O2 Past Medical History Medical History: other (Chronc resp failure, Sacral decubitus ulcer ) Past Surgical History Past Surgical Hx: cholecystectomy, other (Tracheostomy, PEG ,Hysterectomy ) Family History Significant Family History: other (not able to obtain due to pt clinical status ) Exam/Review of Systems Vital Signs Vitals Vital Signs Date Time Temp Pulse Resp B/P Pulse Ox O2 Delivery O2 Flow Rate FiO2 02/08/17 15:07 98.2 78 22 117/68 97 02/08/17 10:27 35 Intake and Output 02/07/17 02/07/17 02/08/17 15:00 23:00 07:00 Intake Total 50 ml 1950 ml 560 ml Output Total 2200 ml Balance 50 ml -250 ml 560 ml Exam GENERAL: Well-developed, fragile, chronically ill-appearing, elderly woman who is awake and in no distress. HEENT: Head atraumatic, normocephalic. Sclerae anicteric. Buccal mucosa dry. NECK: Supple. Tracheostomy present. CHEST: Rise symmetrical. Breath sounds with scattered rhonchi. HEART: S1, S2. ABDOMEN: Soft, bowel sounds present. EXTREMITIES: Without cyanosis. SKIN: With unstageable sacral wound. Results Result Diagram: 02/08/17 0643 02/08/17 0643 Results 24 hrs Laboratory Tests Test 02/08/17 06:43 White Blood Count 17.7 H Red Blood Count 3.84 #L Hemoglobin 10.4 #L Hematocrit 32.4 #L Mean Corpuscular Volume 84.4 Mean Corpuscular Hemoglobin 27.1 L Mean Corpuscular Hemoglobin Concent 32.1 Red Cell Distribution Width 16.6 H Platelet Count 409 Mean Platelet Volume 9.1 Neutrophils % 76.7 Lymphocytes % 10.0 L Monocytes % 9.6 Eosinophils % 2.5 Basophils % 0.3 Nucleated Red Blood Cells % 0.0 Neutrophils # (Manual) 14 H Lymphocytes # 1.8 Monocytes # 1.7 H Eosinophils # 0.4 Basophils # 0.1 Nucleated Red Blood Cells # 0.0 Sodium Level 125 L Potassium Level 4.2 Chloride Level 87 L Carbon Dioxide Level 26 Anion Gap 16 # Blood Urea Nitrogen 15 Creatinine 0.49 Glucose Level 122 Calcium Level 11.7 H Medications Medications Current Medications Ondansetron HCl (Zofran Inj) 4 mg Q6H PRN IV NAUSEA AND/OR VOMITING Last administered on 02/05/17 09:36; Admin Dose 4 MG; Start 02/01/17 at 22:30 Acetaminophen (Tylenol Tab) 650 mg Q6H PRN PO PAIN LEVEL 1-3 OR FEVER Last administered on 02/04/17 21:08; Admin Dose 650 MG; Start 02/01/17 at 22:30 Acetaminophen/ Hydrocodone Bitart ([place] (5/325)) 1 tab Q6H PRN PO MODERATE PAIN LEVEL 4-6 Last administered on 02/04/17 21:07; Admin Dose 1 TAB; Start at 22:30 Hydromorphone HCl (Dilaudid) 0.5 mg Q4H PRN IV SEVERE PAIN LEVEL 7-10 Last administered on 02/08/17 12:29; Admin Dose 0.5 MG; Start 02/01/17 at 22:30 Docusate Sodium (Colace) 100 mg Q12H PRN PO CONSTIPATION; Start 02/01/17 at 22: 30 Magnesium Hydroxide (Milk Of Mag) 30 ml DAILY PRN PO CONSTIPATION; Start at 22:30 Bisacodyl (Dulcolax) 5 mg DAILY PRN PO CONSTIPATION; Start 02/01/17 at 22:30 Zolpidem Tartrate (Ambien) 5 mg QHS PRN PO SLEEP; Start 02/01/17 at 22:30 Lansoprazole (Prevacid) 30 mg DAILY@06 GTB Last administered on 02/08/17 05:06 ; Admin Dose 30 MG; Start 02/02/17 at 06:00 Enoxaparin Sodium 40 mg 40 mg DAILY SC Last administered on 02/08/17 08:34; Admin Dose 40 MG; Start 02/02/17 at 09:00 Cefepime HCl (Maxipime 1gm/50 ml (Pmx)) 50 ml @ 100 mls/hr Q12 IVPB Last administered on 02/08/17 08:28; Admin Dose 100 MLS/HR; Start 02/02/17 at 09:00 Ascorbic Acid (Vitamin C) 500 mg BID GTB Last administered on 02/08/17 08:28; Admin Dose 500 MG; Start 02/02/17 at 09:00 Diazepam (Valium) 5 mg DAILY PRN GTB ANXIETY Last administered on 02/06/17 09: 17; Admin Dose 5 MG; Start 02/01/17 at 22:30 Duloxetine HCl (Cymbalta) 20 mg DAILY GTB Last administered on 02/08/17 08:28 ; Admin Dose 20 MG; Start 02/02/17 at 09:00 Multivitamins Therapeutic (Theragran) 1 tab DAILY GTB Last administered on 02/08 08:28; Admin Dose 1 TAB; Start 02/02/17 at 09:00 Zinc Sulfate (Zinc Sulfate) 220 mg DAILY GTB Last administered on 02/08/17 08: 28; Admin Dose 220 MG; Start 02/02/17 at 09:00 Lactobacillus Acidophilus (Florajen3 Capsule) 1 each TID NGT Last administered on 02/08/17 12:29; Admin Dose 1 EACH; Start 02/02/17 at 09:00 Lactulose (Enulose) 20 gm BID PO Last administered on 02/08/17 08:27; Admin Dose 20 GM; Start 02/02/17 at 09:00 Collagenase (Santyl) 1 applic DAILY TOP Last administered on 02/08/17 12:28; Admin Dose 1 APPLIC; Start 02/02/17 at 09:00 Collagenase 1 applic 1 applic PRN PRN TOP PRN; Start 02/02/17 at 04:00 Trimethoprim/ Sulfamethoxazole/ Dextrose (Bactrim/D5W) 510 ml @ 350 mls/hr Q8 IVPB Last administered on 02/08/17t 13:04; Admin Dose 350 MLS/HR; Start at 17:00 DIONNE SAUCEDA MD Feb 08, 2017 15:47
[2017-02-08] MEDS: DIAZEPAM 5 MG TAB GTB PRN (20:27)
--- NOTE | 2017-02-08 23:23 | CONS ---
Date/Time of Note Date/Time of Note DATE: 02/01/17 TIME: 21:23 vk le Assessment/Plan Assessment/Plan Chief Complaint/Hosp Course -Anemia, check stool for OB transfuse packed red blood cells as needed continue to monitor H&H. -Left lung squamous carcinoma supportive care no aggressive treatment planned -Sepsis, most likely secondary to urinary tract infection and possible postobstructive pneumonia. Dr. Coleman is following infection disease consultation, follow-up on cultures, continue antibiotics per ID. -Hyponatremia, nephrology f-up, continue IV fluids per renal. -Ventilator dependent respiratory failure with tracheostomy, continue breathing treatments. -COPD -Dysphagia with PEG -History of cardiopulmonary arrest -Multiple wounds present on admission, that is post debridement at last admission. -Hypothyroidism -Chronic urinary retention with George catheter Problems: Consultation Date/Type/Reason Admit Date/Time Feb 01, 2017 at 15:50 Date of Consultation: Feb 01, 2017 Type of Consultation: hemeonc Reason for Consultation lung cancer Referring Provider: DRE LOBATO MD Hx of Present Illness This is an unfortunate, 66-year-old, -[place] woman well known to our service from multiple previous admissions. The patient with a history of lung CA, cachexia, unstageable sacral decubitus, status post multiple debridements, anemia, COPD, urinary retention, depression, chronic pain syndrome, history of Clostridium difficile colitis, recurrent bouts of UTI, MRSA nares colonization, history of line sepsis with tip culture on previous admission growing coag- negative Staph species. Acutely, the patient came symptomatic hypotension she was dx with sepsis i was asked to provide hemeonc consult . Indwellings: Patient has trach, PEG, George and peripheral IV. Antimicrobials: She was started on cefepime and vancomycin. SOCIAL HISTORY: Patient came from [facility]. REVIEW OF SYSTEMS: As per history of present illness. Patient is trached and cannot provide information. Constitutional: requiring O2 Past Medical History Medical History: other (Chronc resp failure, Sacral decubitus ulcer ) Past Surgical History Past Surgical Hx: cholecystectomy, other (Tracheostomy, PEG ,Hysterectomy ) Exam/Review of Systems Vital Signs Vitals Date Time Temp Pulse Resp B/P Pulse Ox O2 Delivery O2 Flow Rate FiO2 02/01/17 15:07 102 18 100 40 02/01/17 14:00 92 22 90/66 100 Mechanical Ventilator 02/01/17 13:45 93 19 93/86 100 Mechanical Ventilator 02/01/17 12:35 99.1 93 19 /66 100 02/01/17 12:31 99.1 18 / 100 Mechanical Ventilator Physical Exam Const: No apparent distress, not diaphoretic, awake and alert Head: Atraumatic, dry flaky skin Eyes: Normal Conjunctiva ENT: Normal External Ears, Nose, dry oral mucous membranes. Neck: Full range of motion..~ No meningismus. Resp: Bibasilar rales Cardio: Regular rhythm, tachycardia, no murmurs Abd: Soft, non distended, mild generalized abdominal tenderness. Normal bowel sounds Skin: Large stage IV sacral decubitus ulcer without obvious purulence. Mild perineal erythema Back: No midline or flank tenderness Ext: No cyanosis, or edema Neur: Awake and alert, unable to state orientation questions, follows commands in all 4 extremities, sensation intact Result Diagram: 02/01/17 1320 02/01/17 1320 Results 24 hrs Laboratory Tests Test 02/01/17 13:20 02/01/17 13:30 02/01/17 15:05 White Blood Count 19.710^3/ul Red Blood Count 2.3410^6/ul Hemoglobin 6.5g/dl Hematocrit 21.4% Mean Corpuscular Volume 91.5fl Mean Corpuscular Hemoglobin 27.8pg Mean Corpuscular Hemoglobin Concent 30.4g/dl Red Cell Distribution Width 16.5% Platelet Count 20589^3/UL Mean Platelet Volume 9.1fl Neutrophils % % Segmented Neutrophils % (Manual) 72% Band Neutrophils % (Manual) 1% Lymphocytes % % Lymphocytes % (Manual) 15% Monocytes % % Monocytes % (Manual) 8% Eosinophils % % Eosinophils % (Manual) 4% Basophils % % Nucleated Red Blood Cells % 0.0/100WBC Neutrophils # (Manual) 1410^3/ul Band Neutrophils # 0.110^3/ul Absolute Lymphocytes (Manual) 2.910^3/ul Lymphocytes # 10^3/ul Monocytes # 10^3/ul Absolute Monocytes (Manual) 1.510^3/ul Eosinophils # 10^3/ul Basophils # 10^3/ul Nucleated Red Blood Cells # 10^3/ul Platelet Estimate NORMAL Hypochromasia 2+ Anisocytosis 1+ Microcytosis 1+ Prothrombin Time 16.7Sec Prothrombin Time Ratio 1.3 INR International Normalized Ratio 1.34 Activated Partial Thromboplast Time 46.1Sec Sodium Level 136mmol/L Potassium Level 4.0mmol/L Chloride Level 90mmol/L Carbon Dioxide Level 35mmol/L Anion Gap 15 Blood Urea Nitrogen 43mg/dl Creatinine 0.61mg/dl Glucose Level 95mg/dl Lactic Acid Level 1.4mmol/L 1.8mmol/L Calcium Level 10.0mg/dl Total Bilirubin 0.0mg/dl Direct Bilirubin 0.00mg/dl Indirect Bilirubin 0.0mg/dl Aspartate Amino Transf (AST/SGOT) 62IU/L Alanine Aminotransferase (ALT/SGPT) 49IU/L Alkaline Phosphatase 583IU/L Troponin I < 0.012ng/ml Total Protein 8.2g/dl Albumin 2.8g/dl Globulin 5.40g/dl Albumin/Globulin Ratio 0.51 Urine Color YELLOW Urine Clarity CLEAR Urine pH 9.0 Urine Specific [place] 1.012 Urine Ketones NEGATIVEmg/dL Urine Nitrite NEGATIVEmg/dL Urine Bilirubin NEGATIVEmg/dL Urine Urobilinogen NEGATIVEmg/dL Urine Leukocyte Esterase 1+Jeny/ul Urine Microscopic RBC 0/HPF Urine Microscopic WBC 7/HPF Urine Hemoglobin NEGATIVEmg/dL Urine Glucose NEGATIVEmg/dL Urine Total Protein 1+mg/dl Current Medications Medications (Trade) Dose Ordered Sig/Tray Route PRN Reason Start Time Stop Time Status Last Admin Dose Admin Sodium Chloride (NS) 1,000 ml @ 1,000 mls/hr Q1H ONCE IV 02/01/17 13:00 02/01/17 13:59 Cancel Fentanyl (Sublimaze) 25 mcg ONCE ONCE IV 02/01/17 14:00 02/01/17 14:01 DC 02/01/17 14:53 Sodium Chloride 2110 ml 2,110 ml BOLUS OVER 2 HOURS STAT IV* 02/01/17 13:56 02/01/17 13:58 DC 02/01/17 14:52 Sodium Chloride 250 ml @ 0 mls/hr Q0M ONCE IV 02/01/17 14:00 02/01/17 14:04 DC Cefepime HCl 50 ml @ 100 mls/hr ONCE ONCE IVPB 02/01/17 15:00 02/01/17 15:29 DC 02/01/17 14:52 Vancomycin HCl/ Sodium Chloride (Vancocin/NS) 250 ml @ 83.333 mls/ hr ONCE ONCE IVPB 02/01/17 15:00 02/01/17 17:59 Results Result Diagram: 02/08/17 0643 02/08/17 0643 Results 24 hrs Laboratory Tests Test 02/08/17 06:43 White Blood Count 17.7 H Red Blood Count 3.84 #L Hemoglobin 10.4 #L Hematocrit 32.4 #L Mean Corpuscular Volume 84.4 Mean Corpuscular Hemoglobin 27.1 L Mean Corpuscular Hemoglobin Concent 32.1 Red Cell Distribution Width 16.6 H Platelet Count 409 Mean Platelet Volume 9.1 Neutrophils % 76.7 Lymphocytes % 10.0 L Monocytes % 9.6 Eosinophils % 2.5 Basophils % 0.3 Nucleated Red Blood Cells % 0.0 Neutrophils # (Manual) 14 H Lymphocytes # 1.8 Monocytes # 1.7 H Eosinophils # 0.4 Basophils # 0.1 Nucleated Red Blood Cells # 0.0 Sodium Level 125 L Potassium Level 4.2 Chloride Level 87 L Carbon Dioxide Level 26 Anion Gap 16 # Blood Urea Nitrogen 15 Creatinine 0.49 Glucose Level 122 Calcium Level 11.7 H Medications Medications Current Medications Ondansetron HCl (Zofran Inj) 4 mg Q6H PRN IV NAUSEA AND/OR VOMITING Last administered on 02/05/17 09:36; Admin Dose 4 MG; Start 02/01/17 at 22:30 Acetaminophen (Tylenol Tab) 650 mg Q6H PRN PO PAIN LEVEL 1-3 OR FEVER Last administered on 02/04/17 21:08; Admin Dose 650 MG; Start 02/01/17 at 22:30 Acetaminophen/ Hydrocodone Bitart ([place] (5/325)) 1 tab Q6H PRN PO MODERATE PAIN LEVEL 4-6 Last administered on 02/04/17 21:07; Admin Dose 1 TAB; Start at 22:30 Hydromorphone HCl (Dilaudid) 0.5 mg Q4H PRN IV SEVERE PAIN LEVEL 7-10 Last administered on 02/08/17 21:26; Admin Dose 0.5 MG; Start 02/01/17 at 22:30 Docusate Sodium (Colace) 100 mg Q12H PRN PO CONSTIPATION; Start 02/01/17 at 22: 30 Magnesium Hydroxide (Milk Of Mag) 30 ml DAILY PRN PO CONSTIPATION; Start at 22:30 Bisacodyl (Dulcolax) 5 mg DAILY PRN PO CONSTIPATION; Start 02/01/17 at 22:30 Zolpidem Tartrate (Ambien) 5 mg QHS PRN PO SLEEP; Start 02/01/17 at 22:30 Lansoprazole (Prevacid) 30 mg DAILY@06 GTB Last administered on 02/08/17 05:06 ; Admin Dose 30 MG; Start 02/02/17 at 06:00 Enoxaparin Sodium 40 mg 40 mg DAILY SC Last administered on 02/08/17 08:34; Admin Dose 40 MG; Start 02/02/17 at 09:00 Cefepime HCl (Maxipime 1gm/50 ml (Pmx)) 50 ml @ 100 mls/hr Q12 IVPB Last administered on 02/08/17 20:27; Admin Dose 100 MLS/HR; Start 02/02/17 at 09:00 Ascorbic Acid (Vitamin C) 500 mg BID GTB Last administered on 02/08/17 20:26; Admin Dose 500 MG; Start 02/02/17 at 09:00 Diazepam (Valium) 5 mg DAILY PRN GTB ANXIETY Last administered on 02/08/17 20: 27; Admin Dose 5 MG; Start 02/01/17 at 22:30 Duloxetine HCl (Cymbalta) 20 mg DAILY GTB Last administered on 02/08/17 08:28 ; Admin Dose 20 MG; Start 02/02/17 at 09:00 Multivitamins Therapeutic (Theragran) 1 tab DAILY GTB Last administered on 02/08 08:28; Admin Dose 1 TAB; Start 02/02/17 at 09:00 Zinc Sulfate (Zinc Sulfate) 220 mg DAILY GTB Last administered on 02/08/17 08: 28; Admin Dose 220 MG; Start 02/02/17 at 09:00 Lactobacillus Acidophilus (Florajen3 Capsule) 1 each TID NGT Last administered on 02/08/17 20:26; Admin Dose 1 EACH; Start 02/02/17 at 09:00 Lactulose (Enulose) 20 gm BID PO Last administered on 02/08/17 20:27; Admin Dose 20 GM; Start 02/02/17 at 09:00 Collagenase (Santyl) 1 applic DAILY TOP Last administered on 02/08/17 12:28; Admin Dose 1 APPLIC; Start 02/02/17 at 09:00 Collagenase 1 applic 1 applic PRN PRN TOP PRN; Start 02/02/17 at 04:00 Trimethoprim/ Sulfamethoxazole/ Dextrose (Bactrim/D5W) 510 ml @ 350 mls/hr Q8 IVPB Last administered on 02/08/17 21:28; Admin Dose 350 MLS/HR; Start at 17:[address] -The abdomen and pelvis revealed increased size of partially visualized, 9- cm mass in the left lingual, trace left pleural effusion with bibasilar atelectasis, cardiomegaly with pericardial effusion, diffuse mesenteric and subcutaneous edema or anasarca, trace ascites, hepatomegaly and bilateral nephromegaly, status post cholecystectomy and hysterectomy, gastric distention with percutaneous G tube in place, moderate retained feces throughout the colon with mild prolapse of the rectum, diffusely thick- walled bladder with George catheter in place, unchanged. Chest x- ray revealed mild pulmonary vascular congestion and large stable 10.1 cm mass-like lesion or consolidation in the left mid lung. DYLLAN CARRION MD Feb 08, 2017 23:23
--- NOTE | 2017-02-08 23:23 | CONS ---
Date/Time of Note Date/Time of Note DATE: 02/08/17 TIME: 23:22 Assessment/Plan Assessment/Plan Chief Complaint/Hosp Course -Anemia, check stool for OB, post 2 unit of packed red blood cells, continue to monitor H&H. -Left lung squamous carcinoma supportive care no aggressive treatment planned -Sepsis, most likely secondary to urinary tract infection and possible postobstructive pneumonia. Dr. Coleman is following infection disease consultation, follow-up on cultures, continue antibiotics per ID. -Hyponatremia, nephrology f-up, continue IV fluids per renal. -Ventilator dependent respiratory failure with tracheostomy, continue breathing treatments. -COPD -Dysphagia with PEG -History of cardiopulmonary arrest -Multiple wounds present on admission, that is post debridement at last admission. -Hypothyroidism -Chronic urinary retention with George catheter Problems: Consultation Date/Type/Reason Admit Date/Time Feb 01, 2017 at 15:50 Initial Consult Date 02/08/17 Type of Consultation: hemeonc Referring Provider: DRE LOBATO MD 24 HR Interval Summary Free Text/Dictation all noted d/w rn no bleeding no hemolysis post PRBC Exam/Review of Systems Vital Signs Vitals Vital Signs Date Time Temp Pulse Resp B/P Pulse Ox O2 Delivery O2 Flow Rate FiO2 02/08/17 23:14 103 28 98 30 02/08/17 20:09 98.3 119/75 Intake and Output 02/07/17 02/07/17 02/08/17 15:00 23:00 07:00 Intake Total 50 ml 1950 ml 560 ml Output Total 2200 ml Balance 50 ml -250 ml 560 ml Exam GENERAL: Chronically ill-appearing, frail 66 yo F HEENT: Unremarkable except wearing eyeglasses, missing multiple teeth NECK: Trach (+) secure to Vent CHEST: Rise symmetrical without dyspnea ABDOMEN: Soft EXTREMITIES: Moves all extremities, Without cyanosis. SKIN: See photos -- Hip + large decub sacral unstageable Results Result Diagram: 02/08/17 0643 02/08/17 0643 Results 24 hrs Laboratory Tests Test 02/08/17 06:43 White Blood Count 17.7 H Red Blood Count 3.84 #L Hemoglobin 10.4 #L Hematocrit 32.4 #L Mean Corpuscular Volume 84.4 Mean Corpuscular Hemoglobin 27.1 L Mean Corpuscular Hemoglobin Concent 32.1 Red Cell Distribution Width 16.6 H Platelet Count 409 Mean Platelet Volume 9.1 Neutrophils % 76.7 Lymphocytes % 10.0 L Monocytes % 9.6 Eosinophils % 2.5 Basophils % 0.3 Nucleated Red Blood Cells % 0.0 Neutrophils # (Manual) 14 H Lymphocytes # 1.8 Monocytes # 1.7 H Eosinophils # 0.4 Basophils # 0.1 Nucleated Red Blood Cells # 0.0 Sodium Level 125 L Potassium Level 4.2 Chloride Level 87 L Carbon Dioxide Level 26 Anion Gap 16 # Blood Urea Nitrogen 15 Creatinine 0.49 Glucose Level 122 Calcium Level 11.7 H Medications Medications Current Medications Ondansetron HCl (Zofran Inj) 4 mg Q6H PRN IV NAUSEA AND/OR VOMITING Last administered on 02/05/17 09:36; Admin Dose 4 MG; Start 02/01/17 at 22:30 Acetaminophen (Tylenol Tab) 650 mg Q6H PRN PO PAIN LEVEL 1-3 OR FEVER Last administered on 02/04/17 21:08; Admin Dose 650 MG; Start 02/01/17 at 22:30 Acetaminophen/ Hydrocodone Bitart ([place] (5/325)) 1 tab Q6H PRN PO MODERATE PAIN LEVEL 4-6 Last administered on 02/04/17 21:07; Admin Dose 1 TAB; Start at 22:30 Hydromorphone HCl (Dilaudid) 0.5 mg Q4H PRN IV SEVERE PAIN LEVEL 7-10 Last administered on 02/08/17 21:26; Admin Dose 0.5 MG; Start 02/01/17 at 22:30 Docusate Sodium (Colace) 100 mg Q12H PRN PO CONSTIPATION; Start 02/01/17 at 22: 30 Magnesium Hydroxide (Milk Of Mag) 30 ml DAILY PRN PO CONSTIPATION; Start at 22:30 Bisacodyl (Dulcolax) 5 mg DAILY PRN PO CONSTIPATION; Start 02/01/17 at 22:30 Zolpidem Tartrate (Ambien) 5 mg QHS PRN PO SLEEP; Start 02/01/17 at 22:30 Lansoprazole (Prevacid) 30 mg DAILY@06 GTB Last administered on 02/08/17 05:06 ; Admin Dose 30 MG; Start 02/02/17 at 06:00 Enoxaparin Sodium 40 mg 40 mg DAILY SC Last administered on 02/08/17 08:34; Admin Dose 40 MG; Start 02/02/17 at 09:00 Cefepime HCl (Maxipime 1gm/50 ml (Pmx)) 50 ml @ 100 mls/hr Q12 IVPB Last administered on 02/08/17 20:27; Admin Dose 100 MLS/HR; Start 02/02/17 at 09:00 Ascorbic Acid (Vitamin C) 500 mg BID GTB Last administered on 02/08/17 20:26; Admin Dose 500 MG; Start 02/02/17 at 09:00 Diazepam (Valium) 5 mg DAILY PRN GTB ANXIETY Last administered on 02/08/17 20: 27; Admin Dose 5 MG; Start 02/01/17 at 22:30 Duloxetine HCl (Cymbalta) 20 mg DAILY GTB Last administered on 02/08/17 08:28 ; Admin Dose 20 MG; Start 02/02/17 at 09:00 Multivitamins Therapeutic (Theragran) 1 tab DAILY GTB Last administered on 02/08 08:28; Admin Dose 1 TAB; Start 02/02/17 at 09:00 Zinc Sulfate (Zinc Sulfate) 220 mg DAILY GTB Last administered on 02/08/17 08: 28; Admin Dose 220 MG; Start 02/02/17 at 09:00 Lactobacillus Acidophilus (Florajen3 Capsule) 1 each TID NGT Last administered on 02/08/17 20:26; Admin Dose 1 EACH; Start 02/02/17 at 09:00 Lactulose (Enulose) 20 gm BID PO Last administered on 02/08/17 20:27; Admin Dose 20 GM; Start 02/02/17 at 09:00 Collagenase (Santyl) 1 applic DAILY TOP Last administered on 02/08/17 12:28; Admin Dose 1 APPLIC; Start 02/02/17 at 09:00 Collagenase 1 applic 1 applic PRN PRN TOP PRN; Start 02/02/17 at 04:00 Trimethoprim/ Sulfamethoxazole/ Dextrose (Bactrim/D5W) 510 ml @ 350 mls/hr Q8 IVPB Last administered on 02/08/17 21:28; Admin Dose 350 MLS/HR; Start at 17:00 DYLLAN CARRION MD Feb 08, 2017 23:22
--- NOTE | 2017-02-08 23:29 | PN ---
Date/Time of Note Date/Time of Note DATE: 02/08/17 TIME: 23:29 Assessment/Plan Lines/Catheters IV Catheter Type (from Nrs): Saline Lock George in Place (from Nrs): Yes Assessment/Plan Chief Complaint/Hosp Course 1. Multiple decubitus ulcers with debris -Offload -Optimize nutrition -Vitamin C -Local care -Debridement sacrococcyx prn 2. Normocytic anemia: chronic disease vs. acute bleed; no rogerio bleed noted: s/ p PRBC transfusion -monitor -transfuse as needed -stool for OB 3. Sepsis with hypotension: UTI +/- Bacteremia +/- PNA: hypotension improved -supportive -abx per sensitivities -pulmonary toilette 4. Acute on chronic diastolic heart failure -Judicious fluid management -Cardiac optimization 5. Chronic urinary retention with George 6. Hypoalbuminemia: inflammation/infection +/- malnutrition -as above -nutrition optimization 7. Depression. -Medical management 8. Hypothyroidism by history; TSH elevated -Synthroid 9. . 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 Chronic pain syndrome. Continue pain management. 11. UTI: -abx per sensitivity/ID 12. Leukocytosis: 2/2 bacteremia, uti, wounds; continuing to improve -abx per sensitivity -supportive Problems: Subjective 24 Hr Interval Summary Sleepy. Min generalized pain. No sob, comfortable on vent. Anxious. No fevers, chills, cp, palpitations, n/v/d/dysuria. Exam/Review of Systems Vital Signs Vitals Vital Signs Date Time Temp Pulse Resp B/P Pulse Ox O2 Delivery O2 Flow Rate FiO2 02/09/17 21:30 82 34 99 35 02/09/17 20:15 98/65 02/09/17 20:00 96.8 Mechanical Ventilator Intake and Output 02/08/17 02/08/17 02/09/17 15:00 23:00 07:00 Intake Total 560 ml 1140 ml 1710 ml Output Total 1450 ml 750 ml Balance 560 ml -310 ml 960 ml Exam Free Text/Dictation Constitutional: alert, (trached), oriented, No distress Psych: flat Head: atraumatic, normocephalic Eyes: nl conjunctiva, nl lids, nl sclera ENMT: mucosa pink and moist, nl external ears & nose, nl lips & teeth Neck: non-tender, other (tracheostomy, non-reddened, no drainage noted), supple Respiratory: normal effort, no wheezing Cardiovascular: nl pulses, regular rate and rhythm Gastrointestinal: non-tender, other (gtube, site non-tender, non-reddened), soft Musculoskeletal: nl extremities to inspection Extremities: normal pulses Neurological: nl mental status, No nl strength (gen weakness) Skin: No rash; wounds (sacral wound with min drainage pink wound bed and min slough) Results Result Diagram: 02/09/17 0615 02/09/17 0615 JERRY SAHU NP Feb 08, 2017 23:29
[2017-02-09] VITALS (48 sets, daily range): BP systolic 74–127; BP diastolic 40–82; PULSE 74–114; RESP 18–45
[2017-02-09] MEDS: ALBUTEROL 18 GM INHALER INH SCH ×4 (01:35→20:09)
[2017-02-09] MEDS: IPRATROPIUM (HFA) 12.9 GM INHALER INH SCH ×4 (01:35→20:09)
[2017-02-09 02:11] LABS: AADO2 Arterial 87.7 mmHg (7.0-24.0); Allen Test ACCEPTAB; Arterial Base Excess 1.1 mmol/L (-3.0-3); Arterial COHb 0.1 % (0.0-3.0); Arterial Fraction of Oxyhgb 92.8 % (93.0-99.0); Arterial HCO3 27.1 mmol/L (22.0-26.0); Arterial MetHb 0.3 % (0.0-1.5); Arterial Total Hemglobin 11.7 g/dl (12.0-18.0); Blood Gas Mean Airway Pressure 11; Blood Gas PS 16; MODE VENT - SIMV
[2017-02-09] MEDS: HYDROmorphONE 1 MG/ML SYG IV PRN ×2 (02:39→10:41)
[2017-02-09] MEDS ORDERED: SOD CHLORIDE 0.9% 500 ML IV ONE ×2 (05:00→12:00)
[2017-02-09] MEDS: LANSOPRAZOLE 30 MG CAP GTB SCH (06:08)
[2017-02-09] MEDS: TRIMETHOPRIM/SULFAMETHOXAZOLE 10 ML in DEXTROSE 5% 500 ML IVPB SCH (06:09)
[2017-02-09 07:00] LABS: ABNORMAL IP MESSAGE 1; BASOPHIL # 0.1 10^3/ul (0.0-0.1); BASOPHILS % 0.3 % (0.0-2.0); EOSINOPHILS # 0.3 10^3/ul (0.0-0.5); EOSINOPHILS % 1.1 % (0.0-7.0); HEMATOCRIT 32.1 % (37.0-47.0); HEMOGLOBIN 10.2 g/dl (12.0-16.0); LYMPHOCYTES # 1.3 10^3/ul (0.8-2.9); MEAN CORPUSCULAR HEMOGLOBIN 27.3 pg (29.0-33.0); MEAN CORPUSCULAR HGB CONC 31.8 g/dl (32.0-37.0); MEAN CORPUSCULAR VOLUME 85.8 fl (82.0-101.0); MEAN PLATELET VOLUME 9.3 fl (7.4-10.4); MONOCYTE # 1.6 10^3/ul (0.3-0.9); MONOCYTES % 7.4 % (0.0-11.0); NEUTROPHILS % 83.1 % (39.0-77.0); PLATELET COUNT 407 10^3/UL (140-415); RED BLOOD COUNT 3.74 10^6/ul (4.20-5.40); RED CELL DISTRIBUTION WIDTH 16.4 % (11.5-14.5); WHITE BLOOD COUNT 21.8 10^3/ul (4.8-10.8)
[2017-02-09 07:13] LABS: POSITIVE DIFF @See below
[2017-02-09 07:26] LABS: CALCIUM 12.1 mg/dl (8.4-10.2); CREATININE 0.61 mg/dl (0.44-1.00); POTASSIUM 4.7 mmol/L (3.5-5.1)
[2017-02-09 07:55] LABS: AADO2 Arterial 118.1 mmHg (7.0-24.0); Allen Test ACCEPTAB; Arterial Base Excess -0.3 mmol/L (-3.0-3); Arterial COHb 0.3 % (0.0-3.0); Arterial Fraction of Oxyhgb 95.8 % (93.0-99.0); Arterial HCO3 24.3 mmol/L (22.0-26.0); Arterial MetHb 0.3 % (0.0-1.5); Arterial Total Hemglobin 11.3 g/dl (12.0-18.0); MODE VENT - AC
[2017-02-09] MEDS: L ACIDOPHIL/B LACTIS/B LONGUM CAPSULE NGT SCH ×3 (09:34→20:51)
[2017-02-09] MEDS: CEFEPIME 1GM/50 ML (PMX) 50 ML IVPB SCH (09:34)
[2017-02-09] MEDS: LACTULOSE 30ML CUP PO SCH ×2 (09:34→20:51)
[2017-02-09] MEDS: DULOXETINE 20 MG CAP DR GTB SCH (09:34)
[2017-02-09] MEDS: ASCORBIC ACID 500 MG TAB GTB SCH ×2 (09:34→20:51)
[2017-02-09] MEDS: MULTIVITAMINS THERAPEUTIC TAB GTB SCH (09:34)
[2017-02-09] MEDS: ZINC SULFATE 220 MG CAP GTB SCH (09:34)
[2017-02-09] MEDS: ENOXAPARIN 40 MG/0.4 ML SYG SC SCH (09:45)
[2017-02-09] MEDS: COLLAGENASE 30 GM TUBE TOP SCH (09:46)
--- NOTE | 2017-02-09 10:06 | CONS ---
Date/Time of Note Date/Time of Note DATE: 02/09/17 TIME: 10:02 Assessment/Plan Assessment/Plan Additional Assessment/Plan Ventilator setting; AC of 12, tidal volume 450, PEEP of 5, 35% FiO2. Assessment and recommendations; 1. Patient with history of chronic respiratory failure admitted for recurrent sepsis from sacral decubitus wound, status post debridement. Currently on appropriate antibiotic regimen. Continue current supportive care. Consultation Date/Type/Reason Admit Date/Time Feb 01, 2017 at 15:50 Date of Consultation: Feb 09, 2017 Type of Consultation: Pulmonary/critical care Reason for Consultation Pulmonary consultation requested for evaluation of chronic respiratory failure. Patient admitted for recurrent sepsis. Next History of presenting illness; patient is a 66-year-old lady who was admitted on the of this month transfer [place] [facility] with fever and hypotension. Upon evaluation patient was diagnosed with sepsis from multiple sacral decubitus wounds. Patient since then has undergone wound debridement. By the time I saw the patient is completely awake and alert however on ventilator which she has been for the last several months now. Patient has remained hemodynamically stable. Past medical history; 1. Patient with history of chronic respiratory failure status post tracheostomy and G-tube placement. 2. Multiple decubitus ulcers with multiple admissions to the hospital for recurrent sepsis. 3. Left lower lobe lung malignancy, however patient has been too sick to undergo any kind of further workup. 4. Chronic anemia. 5. Severe generalized deconditioning. 6. Severe COPD. Medications; reviewed. Allergies; penicillin, aspirin and ibuprofen. Social history; patient is an ex-smoker. Family history; noncontributory. Occupational history; noncontributory. Review systems; limited review of systems could be obtained. Patient denies any chest pain, shortness of breath, abdominal pain. Denies any vomiting. General exam; elderly woman, on ventilator via tracheostomy, awake and alert. Currently in no distress. Constitutional: requiring O2 Past Medical History Medical History: other (Chronc resp failure, Sacral decubitus ulcer ) Past Surgical History Past Surgical Hx: cholecystectomy, other (Tracheostomy, PEG ,Hysterectomy ) Exam/Review of Systems Vital Signs Vitals Vital Signs Date Time Temp Pulse Resp B/P Pulse Ox O2 Delivery O2 Flow Rate FiO2 02/09/17 08:20 88 02/09/17 07:26 98.0 18 101/55 98 02/09/17 05:56 35 02/09/17 05:39 Mechanical Ventilator Intake and Output 02/08/17 02/08/17 02/09/17 15:00 23:00 07:00 Intake Total 560 ml 1140 ml 1710 ml Output Total 1450 ml 750 ml Balance 560 ml -310 ml 960 ml Exam HEENT exam; supple neck, no JVD. No lymphadenopathy. Midline trachea. No thyromegaly. Tracheostomy placed with clean insertion site. Patient is mostly edentulous. Chest exam; diminished breath sounds throughout. No added sound. S1-S2 audible , no murmurs. Regular rhythm. Abdomen exam; soft, no organomegaly. Bowel sounds audible. G-tube in place. Back examination; dressing applied over sacrum. Extremity exam; no peripheral edema. Patient however has severe muscle loss. 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 Results Result Diagram: 02/09/17 0615 02/09/17 0615 Results 24 hrs Laboratory Tests Test 02/09/17 02:01 02/09/17 04:10 02/09/17 06:15 02/09/17 06:27 Blood Gas Specimen Source Blood arterial Arterial Blood Date Drawn 02/09/2017 2:00:21 AM Arterial Blood pH (Temp corrected) 7.361 Arterial Blood pCO2 (Temp correct) 49.0 H Arterial Blood pO2 (Temp corrected) 68.6 L Arterial Blood HCO3 27.1 H Arterial Blood Base Excess 1.1 Arterial Blood Oxygen Saturation 93.2 L Nader Test ACCEPTAB Arterial Blood Gas Puncture Site Right Radial Arterial Blood Carboxyhemoglobin 0.1 Arterial Blood Methemoglobin 0.3 Blood Gas A-a O2 Differential 87.7 H Oxyhemoglobin Percent 92.8 L Total Hemoglobin 11.7 L Blood Gas Temperature 37.0 Blood Gas Respiration Rate 6.0 Blood Gas Actual Respiration Rate 38 Blood Gas Modality VENT - SIMV FiO2 30.0 Blood Gas Tidal Volume 450.0 Blood Gas Mean Airway Pressure 11 Blood Gas Low PEEP Setting 5.0 Blood Gas Inspiratory Pressure 22.0 Blood Gas Pressure Support 16 Blood Gas Notified Whom AYANA MARR Blood Gas Notified Time 02/09/2017 2:11:06 AM Bedside Glucose 98 White Blood Count 21.8 #H Red Blood Count 3.74 L Hemoglobin 10.2 L Hematocrit 32.1 L Mean Corpuscular Volume 85.8 Mean Corpuscular Hemoglobin 27.3 L Mean Corpuscular Hemoglobin Concent 31.8 L Red Cell Distribution Width 16.4 H Platelet Count 407 Mean Platelet Volume 9.3 Neutrophils % 83.1 H Lymphocytes % 6.0 L Monocytes % 7.4 Eosinophils % 1.1 Basophils % 0.3 Nucleated Red Blood Cells % 0.0 Neutrophils # (Manual) 18.1 H Lymphocytes # 1.3 Monocytes # 1.6 H Eosinophils # 0.3 Basophils # 0.1 Nucleated Red Blood Cells # 0.0 Sodium Level 125 L Potassium Level 4.7 Chloride Level 87 L Carbon Dioxide Level 27 Anion Gap 16 Blood Urea Nitrogen 18 Creatinine 0.61 Glucose Level 89 Calcium Level 12.1 H Lab Scanned Report BLOOD TRANSFUSION Test 02/09/17 07:00 Blood Gas Specimen Source Blood arterial Arterial Blood Date Drawn 02/09/2017 7:00:00 AM Arterial Blood pH (Temp corrected) 7.405 Arterial Blood pCO2 (Temp correct) 39.7 Arterial Blood pO2 (Temp corrected) 85.3 Arterial Blood HCO3 24.3 Arterial Blood Base Excess -0.3 Arterial Blood Oxygen Saturation 96.4 Nader Test ACCEPTAB Arterial Blood Gas Puncture Site Right Radial Arterial Blood Carboxyhemoglobin 0.3 Arterial Blood Methemoglobin 0.3 Blood Gas A-a O2 Differential 118.1 H Oxyhemoglobin Percent 95.8 Total Hemoglobin 11.3 L Blood Gas Temperature 37.0 Blood Gas Respiration Rate 14.0 Blood Gas Actual Respiration Rate 30 Blood Gas Modality VENT - AC FiO2 35.0 Blood Gas Tidal Volume 450.0 Blood Gas Low PEEP Setting 5.0 Blood Gas Notified Whom TM Blood Gas Notified Time 02/09/2017 7:45:00 AM Medications Medications Current Medications Ondansetron HCl (Zofran Inj) 4 mg Q6H PRN IV NAUSEA AND/OR VOMITING Last administered on 02/05/17 09:36; Admin Dose 4 MG; Start 02/01/17 at 22:30 Acetaminophen (Tylenol Tab) 650 mg Q6H PRN PO PAIN LEVEL 1-3 OR FEVER Last administered on 02/04/17 21:08; Admin Dose 650 MG; Start 02/01/17 at 22:30 Acetaminophen/ Hydrocodone Bitart ([place] (5/325)) 1 tab Q6H PRN PO MODERATE PAIN LEVEL 4-6 Last administered on 02/04/17 21:07; Admin Dose 1 TAB; Start at 22:30 Hydromorphone HCl (Dilaudid) 0.5 mg Q4H PRN IV SEVERE PAIN LEVEL 7-10 Last administered on 02/09/17 02:39; Admin Dose 0.5 MG; Start 02/01/17 at 22:30 Docusate Sodium (Colace) 100 mg Q12H PRN PO CONSTIPATION; Start 02/01/17 at 22: 30 Magnesium Hydroxide (Milk Of Mag) 30 ml DAILY PRN PO CONSTIPATION; Start at 22:30 Bisacodyl (Dulcolax) 5 mg DAILY PRN PO CONSTIPATION; Start 02/01/17 at 22:30 Zolpidem Tartrate (Ambien) 5 mg QHS PRN PO SLEEP; Start 02/01/17 at 22:30 Lansoprazole (Prevacid) 30 mg DAILY@06 GTB Last administered on 02/09/17 06:08 ; Admin Dose 30 MG; Start 02/02/17 at 06:00 Enoxaparin Sodium 40 mg 40 mg DAILY SC Last administered on 02/09/17 09:45; Admin Dose 40 MG; Start 02/02/17 at 09:00 Cefepime HCl (Maxipime 1gm/50 ml (Pmx)) 50 ml @ 100 mls/hr Q12 IVPB Last administered on 02/09/17 09:34; Admin Dose 100 MLS/HR; Start 02/02/17 at 09:00 Ascorbic Acid (Vitamin C) 500 mg BID GTB Last administered on 02/09/17 09:34; Admin Dose 500 MG; Start 02/02/17 at 09:00 Diazepam (Valium) 5 mg DAILY PRN GTB ANXIETY Last administered on 02/08/17 20: 27; Admin Dose 5 MG; Start 02/01/17 at 22:30 Duloxetine HCl (Cymbalta) 20 mg DAILY GTB Last administered on 02/09/17 09:34 ; Admin Dose 20 MG; Start 02/02/17 at 09:00 Multivitamins Therapeutic (Theragran) 1 tab DAILY GTB Last administered on 02/09 09:34; Admin Dose 1 TAB; Start 02/02/17 at 09:00 Zinc Sulfate (Zinc Sulfate) 220 mg DAILY GTB Last administered on 02/09/17 09: 34; Admin Dose 220 MG; Start 02/02/17 at 09:00 Lactobacillus Acidophilus (Florajen3 Capsule) 1 each TID NGT Last administered on 02/09/17 09:34; Admin Dose 1 EACH; Start 02/02/17 at 09:00 Lactulose (Enulose) 20 gm BID PO Last administered on 02/09/17 09:34; Admin Dose 20 GM; Start 02/02/17 at 09:00 Collagenase (Santyl) 1 applic DAILY TOP Last administered on 02/09/17 09:46; Admin Dose 1 APPLIC; Start 02/02/17 at 09:00 Collagenase 1 applic 1 applic PRN PRN TOP PRN; Start 02/02/17 at 04:00 Trimethoprim/ Sulfamethoxazole/ Dextrose (Bactrim/D5W) 510 ml @ 350 mls/hr Q8 IVPB Last administered on 02/09/17 06:09; Admin Dose 350 MLS/HR; Start at 17:00 REGINE BUCKLEY Feb 09, 2017 10:06
--- NOTE | 2017-02-09 12:52 | CONS ---
Date/Time of Note Date/Time of Note DATE: 02/09/17 TIME: 12:50 Assessment/Plan Assessment/Plan Additional Assessment/Plan 1. 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 septic shock 3. Recurrent Multidrug Resistant Urinary tract infection 4. Sacral wound 5. Chronic resp failure 6.S/P Tracheostomy, S/p PEG tube placement 7. Lung CA- Squamous Cell CA Plan: Continue current IV abx- currently hypotensive, transfer to ICU, levphed gtt will give 3% saline for 6 hr then stop pt is known to me from previous admission, pt has acute on ch ronic hyponatremai due to SAIDH and Hypovolemia ID following will conitnue to follow up on patient, if Na continues to drop despite 3% saline then we will consider Tolvaptan. will follow up Consultation Date/Type/Reason Admit Date/Time Feb 01, 2017 at 15:50 Initial Consult Date 02/09/17 Type of Consultation: NEPHROLOGY Referring Provider: DRE LOBATO MD 24 HR Interval Summary Free Text/Dictation BP low Systolic in 70s, labile BP Exam/Review of Systems Vital Signs Vitals Vital Signs Date Time Temp Pulse Resp B/P Pulse Ox O2 Delivery O2 Flow Rate FiO2 02/09/17 12:08 97 02/09/17 11:30 98.8 26 76/40 98 Mechanical Ventilator 02/09/17 11:00 35 Intake and Output 02/08/17 02/08/17 02/09/17 15:00 23:00 07:00 Intake Total 560 ml 1140 ml 1710 ml Output Total 1450 ml 750 ml Balance 560 ml -310 ml 960 ml Exam GENERAL: frail, chronically ill-appearing, elderly woman who is awake and in no distress. HEENT: Head atraumatic, normocephalic. Sclerae anicteric. Buccal mucosa dry. NECK: Supple. Tracheostomy present. CHEST: Rise symmetrical. Breath sounds with scattered rhonchi. HEART: S1, S2. ABDOMEN: Soft, bowel sounds present. EXTREMITIES: Without cyanosis. SKIN: With unstageable sacral wound. Results Result Diagram: 02/09/17 0615 02/09/17 0615 Results 24 hrs Laboratory Tests Test 02/09/17 02:01 02/09/17 04:10 02/09/17 06:15 02/09/17 06:27 Blood Gas Specimen Source Blood arterial Arterial Blood Date Drawn 02/09/2017 2:00:21 AM Arterial Blood pH (Temp corrected) 7.361 Arterial Blood pCO2 (Temp correct) 49.0 H Arterial Blood pO2 (Temp corrected) 68.6 L Arterial Blood HCO3 27.1 H Arterial Blood Base Excess 1.1 Arterial Blood Oxygen Saturation 93.2 L Nader Test ACCEPTAB Arterial Blood Gas Puncture Site Right Radial Arterial Blood Carboxyhemoglobin 0.1 Arterial Blood Methemoglobin 0.3 Blood Gas A-a O2 Differential 87.7 H Oxyhemoglobin Percent 92.8 L Total Hemoglobin 11.7 L Blood Gas Temperature 37.0 Blood Gas Respiration Rate 6.0 Blood Gas Actual Respiration Rate 38 Blood Gas Modality VENT - SIMV FiO2 30.0 Blood Gas Tidal Volume 450.0 Blood Gas Mean Airway Pressure 11 Blood Gas Low PEEP Setting 5.0 Blood Gas Inspiratory Pressure 22.0 Blood Gas Pressure Support 16 Blood Gas Notified Whom AYANA CHOIR SINGER Blood Gas Notified Time 02/09/2017 2:11:06 AM Bedside Glucose 98 White Blood Count 21.8 #H Red Blood Count 3.74 L Hemoglobin 10.2 L Hematocrit 32.1 L Mean Corpuscular Volume 85.8 Mean Corpuscular Hemoglobin 27.3 L Mean Corpuscular Hemoglobin Concent 31.8 L Red Cell Distribution Width 16.4 H Platelet Count 407 Mean Platelet Volume 9.3 Neutrophils % 83.1 H Lymphocytes % 6.0 L Monocytes % 7.4 Eosinophils % 1.1 Basophils % 0.3 Nucleated Red Blood Cells % 0.0 Neutrophils # (Manual) 18.1 H Lymphocytes # 1.3 Monocytes # 1.6 H Eosinophils # 0.3 Basophils # 0.1 Nucleated Red Blood Cells # 0.0 Sodium Level 125 L Potassium Level 4.7 Chloride Level 87 L Carbon Dioxide Level 27 Anion Gap 16 Blood Urea Nitrogen 18 Creatinine 0.61 Glucose Level 89 Calcium Level 12.1 H Lab Scanned Report BLOOD TRANSFUSION Test 02/09/17 07:00 Blood Gas Specimen Source Blood arterial Arterial Blood Date Drawn 02/09/2017 7:00:00 AM Arterial Blood pH (Temp corrected) 7.405 Arterial Blood pCO2 (Temp correct) 39.7 Arterial Blood pO2 (Temp corrected) 85.3 Arterial Blood HCO3 24.3 Arterial Blood Base Excess -0.3 Arterial Blood Oxygen Saturation 96.4 Nader Test ACCEPTAB Arterial Blood Gas Puncture Site Right Radial Arterial Blood Carboxyhemoglobin 0.3 Arterial Blood Methemoglobin 0.3 Blood Gas A-a O2 Differential 118.1 H Oxyhemoglobin Percent 95.8 Total Hemoglobin 11.3 L Blood Gas Temperature 37.0 Blood Gas Respiration Rate 14.0 Blood Gas Actual Respiration Rate 30 Blood Gas Modality VENT - AC FiO2 35.0 Blood Gas Tidal Volume 450.0 Blood Gas Low PEEP Setting 5.0 Blood Gas Notified Whom TM Blood Gas Notified Time 02/09/2017 7:45:00 AM Medications Medications Current Medications Ondansetron HCl (Zofran Inj) 4 mg Q6H PRN IV NAUSEA AND/OR VOMITING Last administered on 02/05/17 09:36; Admin Dose 4 MG; Start 02/01/17 at 22:30 Acetaminophen (Tylenol Tab) 650 mg Q6H PRN PO PAIN LEVEL 1-3 OR FEVER Last administered on 02/04/17 21:08; Admin Dose 650 MG; Start 02/01/17 at 22:30 Acetaminophen/ Hydrocodone Bitart ([place] (5/325)) 1 tab Q6H PRN PO MODERATE PAIN LEVEL 4-6 Last administered on 02/04/17 21:07; Admin Dose 1 TAB; Start at 22:30 Hydromorphone HCl (Dilaudid) 0.5 mg Q4H PRN IV SEVERE PAIN LEVEL 7-10 Last administered on 02/09/17 10:41; Admin Dose 0.5 MG; Start 02/01/17 at 22:30 Docusate Sodium (Colace) 100 mg Q12H PRN PO CONSTIPATION; Start 02/01/17 at 22: 30 Magnesium Hydroxide (Milk Of Mag) 30 ml DAILY PRN PO CONSTIPATION; Start at 22:30 Bisacodyl (Dulcolax) 5 mg DAILY PRN PO CONSTIPATION; Start 02/01/17 at 22:30 Zolpidem Tartrate (Ambien) 5 mg QHS PRN PO SLEEP; Start 02/01/17 at 22:30 Lansoprazole (Prevacid) 30 mg DAILY@06 GTB Last administered on 02/09/17 06:08 ; Admin Dose 30 MG; Start 02/02/17 at 06:00 Enoxaparin Sodium 40 mg 40 mg DAILY SC Last administered on 02/09/17 09:45; Admin Dose 40 MG; Start 02/02/17 at 09:00 Cefepime HCl (Maxipime 1gm/50 ml (Pmx)) 50 ml @ 100 mls/hr Q12 IVPB Last administered on 02/09/17 09:34; Admin Dose 100 MLS/HR; Start 02/02/17 at 09:00 Ascorbic Acid (Vitamin C) 500 mg BID GTB Last administered on 02/09/17 09:34; Admin Dose 500 MG; Start 02/02/17 at 09:00 Diazepam (Valium) 5 mg DAILY PRN GTB ANXIETY Last administered on 02/08/17 20: 27; Admin Dose 5 MG; Start 02/01/17 at 22:30 Duloxetine HCl (Cymbalta) 20 mg DAILY GTB Last administered on 02/09/17 09:34 ; Admin Dose 20 MG; Start 02/02/17 at 09:00 Multivitamins Therapeutic (Theragran) 1 tab DAILY GTB Last administered on 02/09 09:34; Admin Dose 1 TAB; Start 02/02/17 at 09:00 Zinc Sulfate (Zinc Sulfate) 220 mg DAILY GTB Last administered on 02/09/17: 34; Admin Dose 220 MG; Start 02/02/17 at 09:00 Lactobacillus Acidophilus (Florajen3 Capsule) 1 each TID NGT Last administered on 02/09/17 09:34; Admin Dose 1 EACH; Start 02/02/17 at 09:00 Lactulose (Enulose) 20 gm BID PO Last administered on 02/09/17 09:34; Admin Dose 20 GM; Start 02/02/17 at 09:00 Collagenase (Santyl) 1 applic DAILY TOP Last administered on 02/09/17 09:46; Admin Dose 1 APPLIC; Start 02/02/17 at 09:00 Collagenase 1 applic 1 applic PRN PRN TOP PRN; Start 02/02/17 at 04:00 Trimethoprim/ Sulfamethoxazole 10 ml/Dextrose 510 ml @ 350 mls/hr Q8 IVPB Last administered on 02/09/17 06:09; Admin Dose 350 MLS/HR; Start 02/03/17 at 17:00 Sodium Chloride (NS) 500 ml @ 500 mls/hr Q1H ONCE IV Last administered on 02/09t 12:11; Admin Dose 500 MLS/HR; Start 02/09/17 at 12:00; Stop 02/09/17 at 12 :59 DIONNE SAUCEDA MD Feb 09, 2017 12:52
[2017-02-09] MEDS ORDERED: NACL 3% 500 ML IV SCH (13:00)
--- NOTE | 2017-02-09 13:39 | RADRPT ---
PROCEDURE: XR Abdomen. CLINICAL INDICATION: Abdominal distension TECHNIQUE: 3 AP views of the abdomen were obtained COMPARISON: X-ray abdomen dated 12/17/2015 FINDINGS: A gastrostomy tube is in place. There is a nonobstructive bowel gas pattern. There are a few mildly distended air filled loops of sm all bowel. There is moderate air-filled distension of the transverse colon. Moderate volume stool is seen within the descending and sigmoid colon. No abnormal soft tissue calcifications are seen. T here are surgical clips within the right upper quadrant. The visualized portions of the lung bases are clear. The osseous structures demonstrate postsurgical changes from posterior fusion of L4-S1. There are postsurgical changes from prior laparoscopic ventral hernia repair. IMPRESSION: 1. Nonspecific , nonobstructive bowel gas pattern. 2. Moderate volume stool in the colon. Clinical correlation for constipation recommended. 3. Gastrostomy tube in place. RPTAT: HH .Maisha Jean MD, MD Date Time Electronically viewed and signed by .Maisha Jean MD, on 02/09/2017 13:39 .G/
--- NOTE | 2017-02-09 14:16 | PN ---
Date/Time of Note Date/Time of Note DATE: 02/09/17 TIME: 14:13 Assessment/Plan VTE Prophylaxis VTE Prophylaxis Intervention: SCD's Lines/Catheters [facility] Peripheral IV Urinary Cath still in place: Yes Reason Cath still needed: urinary retention Assessment/Plan Chief Complaint/Hosp Course Patient is hypotensive, with increased leukocytosis, lethargic but responds to verbal stimuli, abdomen is distended, tender, patient's been pending KUB. Dr. Gonzales is asked to see patient in gastroenterology consultation. Patient is transferred for ICU for starting pressors for hemodynamic stability. Patient remains on ventilatory support via tracheostomy. Assessment/Plan -Sepsis, most likely secondary to urinary tract infection and possible postobstructive pneumonia. Dr. Coleman is following infection disease consultation, follow-up on cultures, continue antibiotics per ID. -Hyponatremia, Dr. Zapata is following a nephrology consultation, continue IV fluids per renal. -Left lung squamous carcinoma -Anemia, check stool for OB, transfuse 1 unit of packed red blood cells, continue to monitor H&H. -Ventilator dependent respiratory failure with tracheostomy, continue breathing treatments. -COPD -Dysphagia with PEG -History of cardiopulmonary arrest -Multiple wounds present on admission, that is post debridement at last admission. -Hypothyroidism -Chronic urinary retention with George catheter Further recommendations based on clinical course. Plan of care discussed with Dr. Dozier Problems: Exam/Review of Systems Vital Signs Vitals Vital Signs Date Time Temp Pulse Resp B/P Pulse Ox O2 Delivery O2 Flow Rate FiO2 02/09/17 13:03 109 39 100 35 02/09/17 11:30 98.8 76/40 Mechanical Ventilator Intake and Output 02/08/17 02/08/17 02/09/17 15:00 23:00 07:00 Intake Total 560 ml 1140 ml 1710 ml Output Total 1450 ml 750 ml Balance 560 ml -310 ml 960 ml Exam Constitutional: alert Head: normocephalic Neck: other, supple Respiratory: diminished breath sounds (Tracheostomy the base of the neck) Cardiovascular: nl pulses Gastrointestinal: other (G-tube), soft Genitourinary - Female: other (George catheter) Extremities: normal pulses Neurological: confused Results Result Diagram: 02/09/17 0615 02/09/17 0615 Results 24 hrs Laboratory Tests Test 02/09/17 02:01 02/09/17 04:10 02/09/17 06:15 02/09/17 06:27 Blood Gas Specimen Source Blood arterial Arterial Blood Date Drawn 02/09/2017 2:00:21 AM Arterial Blood pH (Temp corrected) 7.361 Arterial Blood pCO2 (Temp correct) 49.0 H Arterial Blood pO2 (Temp corrected) 68.6 L Arterial Blood HCO3 27.1 H Arterial Blood Base Excess 1.1 Arterial Blood Oxygen Saturation 93.2 L Nader Test ACCEPTAB Arterial Blood Gas Puncture Site Right Radial Arterial Blood Carboxyhemoglobin 0.1 Arterial Blood Methemoglobin 0.3 Blood Gas A-a O2 Differential 87.7 H Oxyhemoglobin Percent 92.8 L Total Hemoglobin 11.7 L Blood Gas Temperature 37.0 Blood Gas Respiration Rate 6.0 Blood Gas Actual Respiration Rate 38 Blood Gas Modality VENT - SIMV FiO2 30.0 Blood Gas Tidal Volume 450.0 Blood Gas Mean Airway Pressure 11 Blood Gas Low PEEP Setting 5.0 Blood Gas Inspiratory Pressure 22.0 Blood Gas Pressure Support 16 Blood Gas Notified Tonja PIÑA RCP Blood Gas Notified Time 02/09/2017 2:11:06 AM Bedside Glucose 98 White Blood Count 21.8 #H Red Blood Count 3.74 L Hemoglobin 10.2 L Hematocrit 32.1 L Mean Corpuscular Volume 85.8 Mean Corpuscular Hemoglobin 27.3 L Mean Corpuscular Hemoglobin Concent 31.8 L Red Cell Distribution Width 16.4 H Platelet Count 407 Mean Platelet Volume 9.3 Neutrophils % 83.1 H Lymphocytes % 6.0 L Monocytes % 7.4 Eosinophils % 1.1 Basophils % 0.3 Nucleated Red Blood Cells % 0.0 Neutrophils # (Manual) 18.1 H Lymphocytes # 1.3 Monocytes # 1.6 H Eosinophils # 0.3 Basophils # 0.1 Nucleated Red Blood Cells # 0.0 Sodium Level 125 L Potassium Level 4.7 Chloride Level 87 L Carbon Dioxide Level 27 Anion Gap 16 Blood Urea Nitrogen 18 Creatinine 0.61 Glucose Level 89 Calcium Level 12.1 H Lab Scanned Report BLOOD TRANSFUSION Test 02/09/17 07:00 Blood Gas Specimen Source Blood arterial Arterial Blood Date Drawn 02/09/2017 7:00:00 AM Arterial Blood pH (Temp corrected) 7.405 Arterial Blood pCO2 (Temp correct) 39.7 Arterial Blood pO2 (Temp corrected) 85.3 Arterial Blood HCO3 24.3 Arterial Blood Base Excess -0.3 Arterial Blood Oxygen Saturation 96.4 Nader Test ACCEPTAB Arterial Blood Gas Puncture Site Right Radial Arterial Blood Carboxyhemoglobin 0.3 Arterial Blood Methemoglobin 0.3 Blood Gas A-a O2 Differential 118.1 H Oxyhemoglobin Percent 95.8 Total Hemoglobin 11.3 L Blood Gas Temperature 37.0 Blood Gas Respiration Rate 14.0 Blood Gas Actual Respiration Rate 30 Blood Gas Modality VENT - AC FiO2 35.0 Blood Gas Tidal Volume 450.0 Blood Gas Low PEEP Setting 5.0 Blood Gas Notified Whom TM Blood Gas Notified Time 02/09/2017 7:45:00 AM Medications Medications Current Medications Ondansetron HCl (Zofran Inj) 4 mg Q6H PRN IV NAUSEA AND/OR VOMITING Last administered on 02/05/17 09:36; Admin Dose 4 MG; Start 02/01/17 at 22:30 Acetaminophen (Tylenol Tab) 650 mg Q6H PRN PO PAIN LEVEL 1-3 OR FEVER Last administered on 02/04/17 21:08; Admin Dose 650 MG; Start 02/01/17 at 22:30 Acetaminophen/ Hydrocodone Bitart ([place] (5/325)) 1 tab Q6H PRN PO MODERATE PAIN LEVEL 4-6 Last administered on 02/04/17 21:07; Admin Dose 1 TAB; Start at 22:30 Hydromorphone HCl (Dilaudid) 0.5 mg Q4H PRN IV SEVERE PAIN LEVEL 7-10 Last administered on 02/09/17 10:41; Admin Dose 0.5 MG; Start 02/01/17 at 22:30 Docusate Sodium (Colace) 100 mg Q12H PRN PO CONSTIPATION; Start 02/01/17 at 22: 30 Magnesium Hydroxide (Milk Of Mag) 30 ml DAILY PRN PO CONSTIPATION; Start at 22:30 Bisacodyl (Dulcolax) 5 mg DAILY PRN PO CONSTIPATION; Start 02/01/17 at 22:30 Zolpidem Tartrate (Ambien) 5 mg QHS PRN PO SLEEP; Start 02/01/17 at 22:30 Lansoprazole (Prevacid) 30 mg DAILY@06 GTB Last administered on 02/09/17 06:08 ; Admin Dose 30 MG; Start 02/02/17 at 06:00 Enoxaparin Sodium (Lovenox) 40 mg DAILY SC Last administered on 02/09/17 09:45 ; Admin Dose 40 MG; Start 02/02/17 at 09:00 Ascorbic Acid (Vitamin C) 500 mg BID GTB Last administered on 02/09/17 09:34; Admin Dose 500 MG; Start 02/02/17 at 09:00 Diazepam (Valium) 5 mg DAILY PRN GTB ANXIETY Last administered on 02/08/17 20: 27; Admin Dose 5 MG; Start 02/01/17 at 22:30 Duloxetine HCl (Cymbalta) 20 mg DAILY GTB Last administered on 02/09/17 09:34 ; Admin Dose 20 MG; Start 02/02/17 at 09:00 Multivitamins Therapeutic (Theragran) 1 tab DAILY GTB Last administered on 02/09 09:34; Admin Dose 1 TAB; Start 02/02/17 at 09:00 Zinc Sulfate (Zinc Sulfate) 220 mg DAILY GTB Last administered on 02/09/17 09: 34; Admin Dose 220 MG; Start 02/02/17 at 09:00 Lactobacillus Acidophilus (Florajen3 Capsule) 1 each TID NGT Last administered on 02/09/17 14:04; Admin Dose 1 EACH; Start 02/02/17 at 09:00 Lactulose (Enulose) 20 gm BID PO Last administered on 02/09/17 09:34; Admin Dose 20 GM; Start 02/02/17 at 09:00 Collagenase (Santyl) 1 applic DAILY TOP Last administered on 02/09/17 09:46; Admin Dose 1 APPLIC; Start 02/02/17 at 09:00 Collagenase 1 applic 1 applic PRN PRN TOP PRN; Start 02/02/17 at 04:00 Sodium Chloride 500 ml @ 30 mls/hr [id number] IV Last administered on 02/09/17 14:04; Admin Dose 30 MLS/HR; Start 02/09/17 at 13:00 Linezolid 300 ml @ 300 mls/hr Q12 IVPB ; Start 02/09/17 at 14:00; Status UNV Colistimethate Sodium 75 mg/ Sodium Chloride 100 ml @ 200 mls/hr Q12 IVPB ; Start 02/09/17 at 15:00 Metronidazole (Flagyl 500 Mg (Pmx)) 100 ml @ 100 mls/hr Q8 IVPB ; Start at 14:00; Status REBECCA CALLAWAY Feb 09, 2017 14:16
[2017-02-09] MEDS ORDERED: COLISTIMETHATE 75 MG in SOD CHLORIDE 0.9% 100 ML IVPB SCH (15:00)
[2017-02-09] MEDS: metroNIDAZOLE 500 MG/NS (PMX) 100 ML IVPB SCH ×2 (15:02→21:37)
[2017-02-09] MEDS: LINEZOLID 600 MG/D5W (PMX) 300 ML IVPB SCH ×2 (15:38→20:51)
[2017-02-09] MEDS ORDERED: NORepinephrine 8MG/250 ML (PMX 250 ML ONE (16:56)
[2017-02-09] MEDS ORDERED: NORepinephrine 8MG/250 ML (PMX 250 ML IV SCH (17:30)
--- NOTE | 2017-02-09 19:02 | PN ---
DATE: 02/09/2017 SUBJECTIVE DATA: Patient had been transferred to ICU secondary to low blood pressure. She is lethargic, in no distress. VITAL SIGNS: Temperature 98.8, pulse 100, respirations 26, blood pressure 76/40, saturation 98 on 35 percent FiO2. LABORATORY AND DIAGNOSTIC DATA: WBC 21.8. Hemoglobin 10.2, hematocrit 32.1, platelets 407,000, neutrophils 83.1, BUN 18, creatinine 0.61. The patient had x-ray of the abdomen this morning that revealed moderate volume of stool in the colon. Gastrostomy tube in place. INDWELLING: Trach/PEG, George. ANTIMICROBIALS: The patient is on: 1. IV Bactrim, day number 7. 2. Cefepime, day number 8. MICROBIOLOGY: Urine culture on admission grew Acinetobacter baumannii. Nares swab came back positive MRSA. Wound culture growing multiple bacteria, including Acinetobacter baumannii, MRSA, VRE, pseudomonas, Stenotrophomonas maltophilia, Proteus mirabilis. PHYSICAL EXAMINATION: GENERAL: This is a cachectic elderly woman who is lethargic, in no distress. HEENT: Head atraumatic, normocephalic. Sclerae anicteric. Buccal mucosa dry. NECK: Supple. Tracheostomy present. CHEST: Rise symmetrical. Breath sounds diminished at bases with scattered rhonchi. HEART: S1, S2. ABDOMEN: Soft, bowel sounds present. EXTREMITIES: Without cyanosis. ASSESSMENT: 1. Septic shock. 2. Recurrent urinary tract infection. 3. Left lower lobe malignancy, possible obstructive pneumonia. 4. Multiple chronic wounds with wound cultures growing multidrug-resistant organisms. Per discussion with Surgery, wounds are not infected. 5. Dysphagia. 6. Methicillin-resistant Staphylococcus aureus (MRSA) nares colonization. 7. Cachexia. 8. History of Clostridium difficile. PLAN: The patient is hemodynamically unstable, started on pressors, and currently in ICU. We are going to start her on Zyvox, Colistin, and Flagyl. Discontinue current antibiotics, and repeat blood and urine cultures. Follow recommendations of consultants. Prognosis poor. Dictated By: Johnny Chapa NP /[email or web address] /Document#: [id number]
--- NOTE | 2017-02-09 20:07 | CONS ---
Date/Time of Note Date/Time of Note DATE: 02/09/17 TIME: 20:06 Consultation Date/Type/Reason Admit Date/Time Feb 01, 2017 at 15:50 Initial Consult Date 02/08/17 Type of Consultation: hemeon Referring Provider: DRE LOBATO MD 24 HR Interval Summary Free Text/Dictation ALL NOTED NO NEW EVENTS Exam/Review of Systems Vital Signs Vitals Vital Signs Date Time Temp Pulse Resp B/P Pulse Ox O2 Delivery O2 Flow Rate FiO2 02/09/17 18:45 84 33 81/61 91 02/09/17 18:30 Mechanical Ventilator 02/09/17 17:13 35 02/09/17 16:00 97.7 Intake and Output 02/08/17 02/08/17 02/09/17 15:00 23:00 07:00 Intake Total 560 ml 1140 ml 1710 ml Output Total 1450 ml 750 ml Balance 560 ml -310 ml 960 ml Exam GENERAL: Chronically ill-appearing, frail 66 yo F HEENT: Unremarkable except wearing eyeglasses, missing multiple teeth NECK: Trach (+) secure to Vent CHEST: Rise symmetrical without dyspnea ABDOMEN: Soft EXTREMITIES: Moves all extremities, Without cyanosis. SKIN: See photos -- Hip + large decub sacral unstageable Results Result Diagram: 02/09/1715 02/09/17 0615 Results 24 hrs Laboratory Tests Test 02/09/17 02:01 02/09/17 04:10 02/09/17 06:15 02/09/17 06:27 Blood Gas Specimen Source Blood arterial Arterial Blood Date Drawn 02/09/2017 2:00:21 AM Arterial Blood pH (Temp corrected) 7.361 Arterial Blood pCO2 (Temp correct) 49.0 H Arterial Blood pO2 (Temp corrected) 68.6 L Arterial Blood HCO3 27.1 H Arterial Blood Base Excess 1.1 Arterial Blood Oxygen Saturation 93.2 L Nader Test ACCEPTAB Arterial Blood Gas Puncture Site Right Radial Arterial Blood Carboxyhemoglobin 0.1 Arterial Blood Methemoglobin 0.3 Blood Gas A-a O2 Differential 87.7 H Oxyhemoglobin Percent 92.8 L Total Hemoglobin 11.7 L Blood Gas Temperature 37.0 Blood Gas Respiration Rate 6.0 Blood Gas Actual Respiration Rate 38 Blood Gas Modality VENT - SIMV FiO2 30.0 Blood Gas Tidal Volume 450.0 Blood Gas Mean Airway Pressure 11 Blood Gas Low PEEP Setting 5.0 Blood Gas Inspiratory Pressure 22.0 Blood Gas Pressure Support 16 Blood Gas Notified Whom AYANA [facility] Blood Gas Notified Time 02/09/2017 2:11:06 AM Bedside Glucose 98 White Blood Count 21.8 #H Red Blood Count 3.74 L Hemoglobin 10.2 L Hematocrit 32.1 L Mean Corpuscular Volume 85.8 Mean Corpuscular Hemoglobin 27.3 L Mean Corpuscular Hemoglobin Concent 31.8 L Red Cell Distribution Width 16.4 H Platelet Count 407 Mean Platelet Volume 9.3 Neutrophils % 83.1 H Lymphocytes % 6.0 L Monocytes % 7.4 Eosinophils % 1.1 Basophils % 0.3 Nucleated Red Blood Cells % 0.0 Neutrophils # (Manual) 18.1 H Lymphocytes # 1.3 Monocytes # 1.6 H Eosinophils # 0.3 Basophils # 0.1 Nucleated Red Blood Cells # 0.0 Sodium Level 125 L Potassium Level 4.7 Chloride Level 87 L Carbon Dioxide Level 27 Anion Gap 16 Blood Urea Nitrogen 18 Creatinine 0.61 Glucose Level 89 Calcium Level 12.1 H Lab Scanned Report BLOOD TRANSFUSION Test 02/09/17 07:00 Blood Gas Specimen Source Blood arterial Arterial Blood Date Drawn 02/09/2017 7:00:00 AM Arterial Blood pH (Temp corrected) 7.405 Arterial Blood pCO2 (Temp correct) 39.7 Arterial Blood pO2 (Temp corrected) 85.3 Arterial Blood HCO3 24.3 Arterial Blood Base Excess -0.3 Arterial Blood Oxygen Saturation 96.4 Nader Test ACCEPTAB Arterial Blood Gas Puncture Site Right Radial Arterial Blood Carboxyhemoglobin 0.3 Arterial Blood Methemoglobin 0.3 Blood Gas A-a O2 Differential 118.1 H Oxyhemoglobin Percent 95.8 Total Hemoglobin 11.3 L Blood Gas Temperature 37.0 Blood Gas Respiration Rate 14.0 Blood Gas Actual Respiration Rate 30 Blood Gas Modality VENT - AC FiO2 35.0 Blood Gas Tidal Volume 450.0 Blood Gas Low PEEP Setting 5.0 Blood Gas Notified Whom Blood Gas Notified Time 02/09/2017 7:45:00 AM Medications Medications Current Medications Ondansetron HCl (Zofran Inj) 4 mg Q6H PRN IV NAUSEA AND/OR VOMITING Last administered on 02/05/17t 09:36; Admin Dose 4 MG; Start 02/01/17 at 22:30 Acetaminophen (Tylenol Tab) 650 mg Q6H PRN PO PAIN LEVEL 1-3 OR FEVER Last administered on 02/04/17 21:08; Admin Dose 650 MG; Start 02/01/17 at 22:30 Acetaminophen/ Hydrocodone Bitart ([place] (5/325)) 1 tab Q6H PRN PO MODERATE PAIN LEVEL 4-6 Last administered on 02/04/17 21:07; Admin Dose 1 TAB; Start at 22:30 Hydromorphone HCl (Dilaudid) 0.5 mg Q4H PRN IV SEVERE PAIN LEVEL 7-10 Last administered on 02/09/17 10:41; Admin Dose 0.5 MG; Start 02/01/17 at 22:30 Docusate Sodium (Colace) 100 mg Q12H PRN PO CONSTIPATION; Start 02/01/17 at 22: 30 Magnesium Hydroxide (Milk Of Mag) 30 ml DAILY PRN PO CONSTIPATION; Start at 22:30 Bisacodyl (Dulcolax) 5 mg DAILY PRN PO CONSTIPATION; Start 02/01/17 at 22:30 Zolpidem Tartrate (Ambien) 5 mg QHS PRN PO SLEEP; Start 02/01/17 at 22:30 Lansoprazole (Prevacid) 30 mg DAILY@06 GTB Last administered on 02/09/17 06:08 ; Admin Dose 30 MG; Start 02/02/17 at 06:00 Enoxaparin Sodium (Lovenox) 40 mg DAILY SC Last administered on 02/09/17 09:45 ; Admin Dose 40 MG; Start 02/02/17 at 09:00 Ascorbic Acid (Vitamin C) 500 mg BID GTB Last administered on 02/09/17 09:34; Admin Dose 500 MG; Start 02/02/17 at 09:00 Diazepam (Valium) 5 mg DAILY PRN GTB ANXIETY Last administered on 02/08/17 20: 27; Admin Dose 5 MG; Start 02/01/17 at 22:30 Duloxetine HCl (Cymbalta) 20 mg DAILY GTB Last administered on 02/09/17 09:34 ; Admin Dose 20 MG; Start 02/02/17 at 09:00 Multivitamins Therapeutic (Theragran) 1 tab DAILY GTB Last administered on 02/09 09:34; Admin Dose 1 TAB; Start 02/02/17 at 09:00 Zinc Sulfate (Zinc Sulfate) 220 mg DAILY GTB Last administered on 02/09/17 09: 34; Admin Dose 220 MG; Start 02/02/17 at 09:00 Lactobacillus Acidophilus (Florajen3 Capsule) 1 each TID NGT Last administered on 02/09/17 14:04; Admin Dose 1 EACH; Start 02/02/17 at 09:00 Lactulose (Enulose) 20 gm BID PO Last administered on 02/09/17 09:34; Admin Dose 20 GM; Start 02/02/17 at 09:00 Collagenase (Santyl) 1 applic DAILY TOP Last administered on 02/09/17 09:46; Admin Dose 1 APPLIC; Start 02/02/17 at 09:00 Collagenase 1 applic 1 applic PRN PRN TOP PRN; Start 02/02/17 at 04:00 Linezolid 300 ml @ 300 mls/hr Q12 IVPB Last administered on 02/09/17 15:38; Admin Dose 300 MLS/HR; Start 02/09/17 at 15:00 Metronidazole 100 ml @ 100 mls/hr Q8 IVPB Last administered on 02/09/17 15:02 ; Admin Dose 100 MLS/HR; Start 02/09/17 at 14:00 Norepinephrine 250 ml @ 1.875 mls/ hr TITRATE IV Last administered on 17:26; Admin Dose 3.75 MLS/HR; Start 02/09/17 at 17:30; Stop 02/10/17 at 17 :29 Norepinephrine 16 mg/Dextrose 500 ml @ 0 mls/hr TITRATE IV ; Start 02/10/17 at 17:30 Colistimethate Sodium/Sodium Chloride (Coly-Mycin/NS) 100 ml @ 200 mls/hr Q12H IVPB ; Start 02/10/17 at 04:00 DYLLAN CARRION MD Feb 09, 2017 20:07
--- NOTE | 2017-02-09 20:07 | CONS ---
Date/Time of Note Date/Time of Note DATE: 02/09/17 TIME: 20:07 Assessment/Plan Assessment/Plan Chief Complaint/Hosp Course -Anemia, check stool for OB, post 2 unit of packed red blood cells, continue to monitor H&H. -Left lung squamous carcinoma supportive care no aggressive treatment planned -Sepsis, most likely secondary to urinary tract infection and possible postobstructive pneumonia. Dr. Coleman is following infection disease consultation, follow-up on cultures, continue antibiotics per ID. -Hyponatremia, nephrology f-up, continue IV fluids per renal. -Ventilator dependent respiratory failure with tracheostomy, continue breathing treatments. -COPD -Dysphagia with PEG -History of cardiopulmonary arrest -Multiple wounds present on admission, that is post debridement at last admission. -Hypothyroidism -Chronic urinary retention with George catheter Problems: Consultation Date/Type/Reason Admit Date/Time Feb 01, 2017 at 15:50 Initial Consult Date 02/08/17 [facility] Referring Provider: DRE LOBATO MD 24 HR Interval Summary Free Text/Dictation all noted Exam/Review of Systems Vital Signs Vitals Vital Signs Date Time Temp Pulse Resp B/P Pulse Ox O2 Delivery O2 Flow Rate FiO2 02/09/17 18:45 84 33 81/61 91 02/09/17 18:30 Mechanical Ventilator 02/09/17 17:13 35 02/09/17 16:00 97.7 Intake and Output 02/08/17 02/08/17 02/09/17 15:00 23:00 07:00 Intake Total 560 ml 1140 ml 1710 ml Output Total 1450 ml 750 ml Balance 560 ml -310 ml 960 ml Exam PHYSICAL EXAMINATION: GENERAL: Chronically ill-appearing, frail 66 yo F HEENT: Unremarkable except wearing eyeglasses, missing multiple teeth NECK: Trach (+) secure to Vent CHEST: Rise symmetrical without dyspnea ABDOMEN: Soft EXTREMITIES: Moves all extremities, Without cyanosis. SKIN: See photos -- Hip + large decub sacral unstageable Results Result Diagram: 02/09/17 0615 02/09/17 0615 Results 24 hrs Laboratory Tests Test 02/09/17 02:01 02/09/17 04:10 02/09/17 06:15 02/09/17 06:27 Blood Gas Specimen Source Blood arterial Arterial Blood Date Drawn 02/09/2017 2:00:21 AM Arterial Blood pH (Temp corrected) 7.361 Arterial Blood pCO2 (Temp correct) 49.0 H Arterial Blood pO2 (Temp corrected) 68.6 L Arterial Blood HCO3 27.1 H Arterial Blood Base Excess 1.1 Arterial Blood Oxygen Saturation 93.2 L Nader Test ACCEPTAB Arterial Blood Gas Puncture Site Right Radial Arterial Blood Carboxyhemoglobin 0.1 Arterial Blood Methemoglobin 0.3 Blood Gas A-a O2 Differential 87.7 H Oxyhemoglobin Percent 92.8 L Total Hemoglobin 11.7 L Blood Gas Temperature 37.0 Blood Gas Respiration Rate 6.0 Blood Gas Actual Respiration Rate 38 Blood Gas Modality VENT - SIMV FiO2 30.0 Blood Gas Tidal Volume 450.0 Blood Gas Mean Airway Pressure 11 Blood Gas Low PEEP Setting 5.0 Blood Gas Inspiratory Pressure 22.0 Blood Gas Pressure Support 16 Blood Gas Notified Whom AYANA [facility] Blood Gas Notified Time 02/09/2017 2:11:06 AM Bedside Glucose 98 White Blood Count 21.8 #H Red Blood Count 3.74 L Hemoglobin 10.2 L Hematocrit 32.1 L Mean Corpuscular Volume 85.8 Mean Corpuscular Hemoglobin 27.3 L Mean Corpuscular Hemoglobin Concent 31.8 L Red Cell Distribution Width 16.4 H Platelet Count 407 Mean Platelet Volume 9.3 Neutrophils % 83.1 H Lymphocytes % 6.0 L Monocytes % 7.4 Eosinophils % 1.1 Basophils % 0.3 Nucleated Red Blood Cells % 0.0 Neutrophils # (Manual) 18.1 H Lymphocytes # 1.3 Monocytes # 1.6 H Eosinophils # 0.3 Basophils # 0.1 Nucleated Red Blood Cells # 0.0 Sodium Level 125 L Potassium Level 4.7 Chloride Level 87 L Carbon Dioxide Level 27 Anion Gap 16 Blood Urea Nitrogen 18 Creatinine 0.61 Glucose Level 89 Calcium Level 12.1 H Lab Scanned Report BLOOD TRANSFUSION Test 02/09/17 07:00 Blood Gas Specimen Source Blood arterial Arterial Blood Date Drawn 02/09/2017 7:00:00 AM Arterial Blood pH (Temp corrected) 7.405 Arterial Blood pCO2 (Temp correct) 39.7 Arterial Blood pO2 (Temp corrected) 85.3 Arterial Blood HCO3 24.3 Arterial Blood Base Excess -0.3 Arterial Blood Oxygen Saturation 96.4 Nader Test ACCEPTAB Arterial Blood Gas Puncture Site Right Radial Arterial Blood Carboxyhemoglobin 0.3 Arterial Blood Methemoglobin 0.3 Blood Gas A-a O2 Differential 118.1 H Oxyhemoglobin Percent 95.8 Total Hemoglobin 11.3 L Blood Gas Temperature 37.0 Blood Gas Respiration Rate 14.0 Blood Gas Actual Respiration Rate 30 Blood Gas Modality VENT - AC FiO2 35.0 Blood Gas Tidal Volume 450.0 Blood Gas Low PEEP Setting 5.0 Blood Gas Notified Whom TM Blood Gas Notified Time 02/09/2017 7:45:00 AM Medications Medications Current Medications Ondansetron HCl (Zofran Inj) 4 mg Q6H PRN IV NAUSEA AND/OR VOMITING Last administered on 02/05/17 09:36; Admin Dose 4 MG; Start 02/01/17 at 22:30 Acetaminophen (Tylenol Tab) 650 mg Q6H PRN PO PAIN LEVEL 1-3 OR FEVER Last administered on 02/04/17 21:08; Admin Dose 650 MG; Start 02/01/17 at 22:30 Acetaminophen/ Hydrocodone Bitart ([place] (5/325)) 1 tab Q6H PRN PO MODERATE PAIN LEVEL 4-6 Last administered on 02/04/17 21:07; Admin Dose 1 TAB; Start at 22:30 Hydromorphone HCl (Dilaudid) 0.5 mg Q4H PRN IV SEVERE PAIN LEVEL 7-10 Last administered on 02/09/17 10:41; Admin Dose 0.5 MG; Start 02/01/17 at 22:30 Docusate Sodium (Colace) 100 mg Q12H PRN PO CONSTIPATION; Start 02/01/17 at 22: 30 Magnesium Hydroxide (Milk Of Mag) 30 ml DAILY PRN PO CONSTIPATION; Start at 22:30 Bisacodyl (Dulcolax) 5 mg DAILY PRN PO CONSTIPATION; Start 02/01/17 at 22:30 Zolpidem Tartrate (Ambien) 5 mg QHS PRN PO SLEEP; Start 02/01/17 at 22:30 Lansoprazole (Prevacid) 30 mg DAILY@06 GTB Last administered on 02/09/17 06:08 ; Admin Dose 30 MG; Start 02/02/17 at 06:00 Enoxaparin Sodium (Lovenox) 40 mg DAILY SC Last administered on 02/09/17 09:45 ; Admin Dose 40 MG; Start 02/02/17 at 09:00 Ascorbic Acid (Vitamin C) 500 mg BID GTB Last administered on 02/09/17 09:34; Admin Dose 500 MG; Start 02/02/17 at 09:00 Diazepam (Valium) 5 mg DAILY PRN GTB ANXIETY Last administered on 02/08/17 20: 27; Admin Dose 5 MG; Start 02/01/17 at 22:30 Duloxetine HCl (Cymbalta) 20 mg DAILY GTB Last administered on 02/09/17 09:34 ; Admin Dose 20 MG; Start 02/02/17 at 09:00 Multivitamins Therapeutic (Theragran) 1 tab DAILY GTB Last administered on 02/09 09:34; Admin Dose 1 TAB; Start 02/02/17 at 09:00 Zinc Sulfate (Zinc Sulfate) 220 mg DAILY GTB Last administered on 02/09/17 09: 34; Admin Dose 220 MG; Start 02/02/17 at 09:00 Lactobacillus Acidophilus (Florajen3 Capsule) 1 each TID NGT Last administered on 02/09/17 14:04; Admin Dose 1 EACH; Start 02/02/17 at 09:00 Lactulose (Enulose) 20 gm BID PO Last administered on 02/09/17 09:34; Admin Dose 20 GM; Start 02/02/17 at 09:00 Collagenase (Santyl) 1 applic DAILY TOP Last administered on 02/09/17 09:46; Admin Dose 1 APPLIC; Start 02/02/17 at 09:00 Collagenase 1 applic 1 applic PRN PRN TOP PRN; Start 02/02/17 at 04:00 Linezolid 300 ml @ 300 mls/hr Q12 IVPB Last administered on 02/09/17 15:38; Admin Dose 300 MLS/HR; Start 02/09/17 at 15:00 Metronidazole 100 ml @ 100 mls/hr Q8 IVPB Last administered on 02/09/17 15:02 ; Admin Dose 100 MLS/HR; Start 02/09/17 at 14:00 Norepinephrine 250 ml @ 1.875 mls/ hr TITRATE IV Last administered on 17:26; Admin Dose 3.75 MLS/HR; Start 02/09/17 at 17:30; Stop 02/10/17 at 17 :29 Norepinephrine 16 mg/Dextrose 500 ml @ 0 mls/hr TITRATE IV ; Start 02/10/17 at 17:30 Colistimethate Sodium/Sodium Chloride (Coly-Mycin/NS) 100 ml @ 200 mls/hr Q12H IVPB ; Start 02/10/17 at 04:00 DYLLAN CARRION MD Feb 09, 2017 20:07
[2017-02-09 21:22] LABS: CALCIUM 12.2 mg/dl (8.4-10.2); CREATININE 0.75 mg/dl (0.44-1.00); POTASSIUM 4.6 mmol/L (3.5-5.1)
--- NOTE | 2017-02-09 21:47 | PN ---
Date/Time of Note Date/Time of Note DATE: 02/09/17 TIME: 21:47 Assessment/Plan Lines/Catheters [facility] Per[facility] IV George in Place (from Nrs): Yes Assessment/Plan Chief Complaint/Hosp Course 1. Multiple decubitus ulcers with debris -Offload -Optimize nutrition -Vitamin C -Local care -Debridement sacrococcyx prn 2. Normocytic anemia: chronic disease vs. acute bleed; no rogerio bleed noted: s/ p PRBC transfusion -monitor -transfuse as needed -stool for OB 3. Sepsis with hypotension: UTI +/- Bacteremia +/- PNA: hypotension improved -supportive -abx per sensitivities -pulmonary toilette 4. Acute on chronic diastolic heart failure -Judicious fluid management -Cardiac optimization 5. Chronic urinary retention with George 6. Hypoalbuminemia: inflammation/infection +/- malnutrition -as above -nutrition optimization 7. Depression. -Medical management 8. Hypothyroidism by history; TSH elevated -Synthroid 9. . 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 Chronic pain syndrome. Continue pain management. 11. UTI: -abx per sensitivity/ID 12. Leukocytosis: 2/2 bacteremia, uti, wounds; continuing to improve -abx per sensitivity -supportive Problems: Exam/Review of Systems Vital Signs Vitals Vital Signs Date Time Temp Pulse Resp B/P Pulse Ox O2 Delivery O2 Flow Rate FiO2 02/09/17 21:30 82 34 99 35 02/09/17 20:15 98/65 02/09/17 20:00 96.8 Mechanical Ventilator Intake and Output 02/08/17 02/08/17 02/09/17 15:00 23:00 07:00 Intake Total 560 ml 1140 ml 1710 ml Output Total 1450 ml 750 ml Balance 560 ml -310 ml 960 ml Results Result Diagram: 02/09/17 0615 02/09/17 0615 JERRY SAHU NP Feb 09, 2017 21:47
[2017-02-10] VITALS (68 sets, daily range): BP systolic 63–107; BP diastolic 49–78; PULSE 91–110; RESP 29–42
[2017-02-10] MEDS: IPRATROPIUM (HFA) 12.9 GM INHALER INH SCH ×4 (01:25→19:15)
[2017-02-10] MEDS: ALBUTEROL 18 GM INHALER INH SCH ×4 (01:25→19:15)
[2017-02-10] MEDS: COLISTIMETHATE 100 MG in SOD CHLORIDE 0.9% 100 ML IVPB SCH ×2 (04:00→18:12)
[2017-02-10] MEDS ORDERED: COLISTIMETHATE 150 MG in SOD CHLORIDE 0.9% 100 ML IVPB SCH (04:00)
--- NOTE | 2017-02-10 04:25 | CONS ---
DATE OF ADMISSION: 02/01/2017 DATE OF CONSULTATION: 02/09/[address] Dozier, thank you for asking me to see Ms. García in GI consultation. HISTORY OF PRESENT ILLNESS: Patient, as you know, is a 66-year- old female, who is admitted to the hospital because of shortness of breath and she is status post tracheostomy. Because of hypotension, she was transferred to the intensive care unit. GI consultation is requested because of abdominal distention. The patient is alert. She is status post tracheostomy. She is unable to communicate. Most of the history is obtained from the nursing notes. PAST MEDICAL HISTORY: She has multiple other medical problems including respiratory failure, some kind of a sepsis, possible pneumonia or carcinoma of the lung, electrolyte imbalance. In the past, she had history of cardiopulmonary arrest, status post PEG placement. History of hypothyroidism, chronic urinary retention. MEDICATION: Includes: 1. Norepinephrine. 2. Linezolid. 3. Colistimethate. 4. Metronidazole. 5. Sodium chloride. 6. Trimethoprim sulfamethoxazole. 7. Zinc Sulfate. 8. Lactobacillus acidophilus. 9. Lactulose. PHYSICAL EXAMINATION: GENERAL: Patient is a 66-year-old female. At this time, alert, status post tracheostomy. Not in distress. VITAL SIGNS: Pulse is 84, blood pressure is 83/59. CARDIAC: Normal heart sounds. RESPIRATORY: Rales heard bilaterally but to a minimal degree. ABDOMEN: Showed distention. G-tube is in the place. LABORATORY: WBC count is 21,800, hemoglobin 10.2, platelet count is 407,000. Sodium is 125, potassium 4.7, calcium 12.1. Chest x- ray shows pneumonia and possible lung mass. CLINICAL IMPRESSION: 1. From the GI standpoint, the patient has evidence of nonspecific abdominal distention. No significant ileus. No bowel obstruction pattern. No ascites. CAT scan of the abdomen showed dilated stomach several days ago but it is not distended at this time. 2. Other problems include sepsis, hypotension. PLAN: At this time, I will continue to follow the patient closely. Meanwhile, continue present management. Once again, Dr. Dozier, thank you for this consultation. Dictated By: Malik Gonzales MD /[email or web address]/epi /Document#: [id number] ; Dr. Dozier
[2017-02-10] MEDS: metroNIDAZOLE 500 MG/NS (PMX) 100 ML IVPB SCH ×3 (06:00→23:03)
[2017-02-10] MEDS: LANSOPRAZOLE 30 MG CAP GTB SCH (06:00)
[2017-02-10] MEDS: LACTULOSE 30ML CUP PO SCH (09:00)
[2017-02-10] MEDS: MULTIVITAMINS THERAPEUTIC TAB GTB SCH (09:00)
[2017-02-10] MEDS: DULOXETINE 20 MG CAP DR GTB SCH (09:00)
[2017-02-10] MEDS: L ACIDOPHIL/B LACTIS/B LONGUM CAPSULE NGT SCH ×2 (09:00→12:42)
[2017-02-10] MEDS: ASCORBIC ACID 500 MG TAB GTB SCH (09:00)
[2017-02-10] MEDS: ZINC SULFATE 220 MG CAP GTB SCH (09:00)
[2017-02-10] MEDS: COLLAGENASE 30 GM TUBE TOP SCH (09:24)
[2017-02-10 09:33] LABS: HEMATOCRIT 35.3 % (37.0-47.0); HEMOGLOBIN 11.5 g/dl (12.0-16.0); MEAN CORPUSCULAR VOLUME 82.7 fl (82.0-101.0); RED BLOOD COUNT 4.27 10^6/ul (4.20-5.40); WHITE BLOOD COUNT 15.4 10^3/ul (4.8-10.8)
[2017-02-10 09:34] LABS: BASOPHIL # 0.1 10^3/ul (0.0-0.1); BASOPHILS % 0.5 % (0.0-2.0); EOSINOPHILS # 0.1 10^3/ul (0.0-0.5); EOSINOPHILS % 0.5 % (0.0-7.0); LYMPHOCYTES # 0.9 10^3/ul (0.8-2.9); LYMPHOCYTES % 5.9 % (15.0-51.0); MEAN CORPUSCULAR HEMOGLOBIN 26.9 pg (29.0-33.0); MEAN CORPUSCULAR HGB CONC 32.6 g/dl (32.0-37.0); MEAN PLATELET VOLUME 10.2 fl (7.4-10.4); MONOCYTE # 0.9 10^3/ul (0.3-0.9); NEUTROPHILS % 85.7 % (39.0-77.0); NUCLEATED RED BLOOD CELLS% 0.2 /100WBC (0.0-0.0); PLATELET COUNT 502 10^3/UL (140-440); RED CELL DISTRIBUTION WIDTH 16.7 % (11.5-14.5)
--- NOTE | 2017-02-10 09:56 | CONS ---
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 * Nares (+)MRSA. * Wound cx: (+)ACBA, MRSA, VRE, PSAR, Stenotrophomonas maltophilia, Proteus mirabilis. PHYSICAL EXAMINATION: GENERAL: Chronically ill-appearing, frail 66 yo F HEENT: Unremarkable except wearing eyeglasses, missing multiple teeth NECK: Trach (+) secure to Vent CHEST: Rise symmetrical without dyspnea ABDOMEN: Soft EXTREMITIES: Moves all extremities, Without cyanosis. SKIN: See photos -- Hip + large decub sacral unstageable ID ASSESSMENT: 66 yo F w/PMHx Dementia, CVA(chronic left thalamic lacunar infarction), Tobacco/ COPD-Emphysema/Lung Cancer re-admit with: 1. s/p Sepsis on admission w/septic + hypovolemic shock, leukocytosis, low grade temps=> Multifactorial * Afebrile current * Hx of Chronic mild tachycardia - albuterol * Leukocytosis => Down today w/hx of chronic elevated WBC 2. Recurrent Complicated UTI, => due to urinary retention with chronic George = > Probable neurogenic bladder * Urine Cx: 02/01 (+)ACBA; 02/02 (+)ACBA 3. 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 Acute on chronic anemia 5. GERD, Dysphagia, hx GIB 6. Chronic respiratory failure w/Tracheostomy = Multifactorial * COPD: Tobaccoism * Aspiration Pneumonitis = 02/02 Sputum (+)PSAR, StenMaltophilia, Proteus Mirabilis * Hx of PSAR HCAP w/PSAR Trach colonization * Hx of lung cancer w/lobe resection remote 7. 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 H/O DJD spine -> Hx of lumbar spinal fusion 9. Hx of recurrent C.Diff colitis 10. Chronic debility w/Cachexia 11. Chronic pain issues 12. Psych Dx NOS: Hx of Dementia w/intermittent agitative features 13. DECUBS: * Sacral decub: s/p debridement 01/11/17 ; 02/02 Wound cx: (+)ACBA, MRSA, VRE, PSAR, Stenotrophomonas maltophilia, Proteus mirabilis. * Hip Wound Cx 02/01: (+)MM, CRKP, MRSA, VRE (+) MRSA Nares screen ->Bactroban INVASIVES: PICC (01/09/17), FC, Peg ALLERGY: PENICILLIN. CURRENT ABX: > Zyvox #2 + Colistin IV #2 + Flagyl #2 s/p Vanco IV, Cefepime ID PLAN * Continue current ABX; recurrent acute on chronic sepsis difficult to eradicate ; she is growing multiple ABX resistant organism . Problems: Consultation Date/Type/Reason Admit Date/Time Feb 01, 2017 at 15:50 Initial Consult Date 02/09/17 Type of Consultation: ID Referring Provider: DRE LOBATO MD Exam/Review of Systems Vital Signs Vitals Vital Signs Date Time Temp Pulse Resp B/P Pulse Ox O2 Delivery O2 Flow Rate FiO2 02/10/17 08:42 103 37 100 35 02/09/17 20:15 98/65 02/09/17 20:00 96.8 Mechanical Ventilator Intake and Output 02/09/17 02/09/17 02/10/17 15:00 23:00 07:00 Intake Total 30 ml 642.5 ml Output Total 260 ml 245 ml 340 ml Balance -230 ml 397.5 ml -340 ml Results Result Diagram: 02/10/17 0429 02/09/172042 Results 24 hrs Laboratory Tests Test 02/09/17 20:43 02/10/17 04:29 Sodium Level 125 L Potassium Level 4.6 Chloride Level 89 L Carbon Dioxide Level 24 Anion Gap 17 H Blood Urea Nitrogen 22 H Creatinine 0.75 Glucose Level 70 Calcium Level 12.2 H White Blood Count 15.4 #H Red Blood Count 4.27 Hemoglobin 11.5 L Hematocrit 35.3 L Mean Corpuscular Volume 82.7 Mean Corpuscular Hemoglobin 26.9 L Mean Corpuscular Hemoglobin Concent 32.6 Red Cell Distribution Width 16.7 H Platelet Count 502 #H Mean Platelet Volume 10.2 Neutrophils % 85.7 H Lymphocytes % 5.9 L Monocytes % 6.0 Eosinophils % 0.5 Basophils % 0.5 Nucleated Red Blood Cells % 0.2 H Lymphocytes # 0.9 Monocytes # 0.9 Eosinophils # 0.1 Basophils # 0.1 Nucleated Red Blood Cells # 0.0 Medications Medications Current Medications Ondansetron HCl (Zofran Inj) 4 mg Q6H PRN IV NAUSEA AND/OR VOMITING Last administered on 02/05/17 09:36; Admin Dose 4 MG; Start 02/01/17 at 22:30 Acetaminophen (Tylenol Tab) 650 mg Q6H PRN PO PAIN LEVEL 1-3 OR FEVER Last administered on 02/04/17 21:08; Admin Dose 650 MG; Start 02/01/17 at 22:30 Acetaminophen/ Hydrocodone Bitart ([place] (5/325)) 1 tab Q6H PRN PO MODERATE PAIN LEVEL 4-6 Last administered on 02/04/17 21:07; Admin Dose 1 TAB; Start at 22:30 Hydromorphone HCl (Dilaudid) 0.5 mg Q4H PRN IV SEVERE PAIN LEVEL 7-10 Last administered on 02/09/17 10:41; Admin Dose 0.5 MG; Start 02/01/17 at 22:30 Docusate Sodium (Colace) 100 mg Q12H PRN PO CONSTIPATION; Start 02/01/17 at 22: 30 Magnesium Hydroxide (Milk Of Mag) 30 ml DAILY PRN PO CONSTIPATION; Start at 22:30 Bisacodyl (Dulcolax) 5 mg DAILY PRN PO CONSTIPATION; Start 02/01/17 at 22:30 Zolpidem Tartrate (Ambien) 5 mg QHS PRN PO SLEEP; Start 02/01/17 at 22:30 Lansoprazole (Prevacid) 30 mg DAILY@06 GTB Last administered on 02/09/17 06:08 ; Admin Dose 30 MG; Start 02/02/17 at 06:00 Enoxaparin Sodium (Lovenox) 40 mg DAILY SC Last administered on 02/09/17 09:45 ; Admin Dose 40 MG; Start 02/02/17 at 09:00 Ascorbic Acid (Vitamin C) 500 mg BID GTB Last administered on 02/09/17 20:51; Admin Dose 500 MG; Start 02/02/17 at 09:00 Diazepam (Valium) 5 mg DAILY PRN GTB ANXIETY Last administered on 02/08/17 20: 27; Admin Dose 5 MG; Start 02/01/17 at 22:30 Duloxetine HCl (Cymbalta) 20 mg DAILY GTB Last administered on 02/09/17 09:34 ; Admin Dose 20 MG; Start 02/02/17 at 09:00 Multivitamins Therapeutic (Theragran) 1 tab DAILY GTB Last administered on 02/09 09:34; Admin Dose 1 TAB; Start 02/02/17 at 09:00 Zinc Sulfate (Zinc Sulfate) 220 mg DAILY GTB Last administered on 02/09/17 09: 34; Admin Dose 220 MG; Start 02/02/17 at 09:00 Lactobacillus Acidophilus (Florajen3 Capsule) 1 each TID NGT Last administered on 02/09/17 20:51; Admin Dose 1 EACH; Start 02/02/17 at 09:00 Lactulose (Enulose) 20 gm BID PO Last administered on 02/09/17 20:51; Admin Dose 20 GM; Start 02/02/17 at 09:00 Collagenase (Santyl) 1 applic DAILY TOP Last administered on 02/10/17 09:24; Admin Dose 1 APPLIC; Start 02/02/17 at 09:00 Collagenase 1 applic 1 applic PRN PRN TOP PRN; Start 02/02/17 at 04:00 Linezolid 300 ml @ 300 mls/hr Q12 IVPB Last administered on 02/09/17 20:51; Admin Dose 300 MLS/HR; Start 02/09/17 at 15:00 Metronidazole 100 ml @ 100 mls/hr Q8 IVPB Last administered on 02/09/17 21:37 ; Admin Dose 100 MLS/HR; Start 02/09/17 at 14:00 Norepinephrine 250 ml @ 1.875 mls/ hr TITRATE IV Last administered on 17:26; Admin Dose 3.75 MLS/HR; Start 02/09/17 at 17:30; Stop 02/10/17 at 17 :29 Norepinephrine 16 mg/Dextrose 500 ml @ 0 mls/hr TITRATE IV ; Start 02/10/17 at 17:30 Colistimethate Sodium/Sodium Chloride (Coly-Mycin/NS) 100 ml @ 200 mls/hr Q12H IVPB ; Start 02/10/17 at 04:00 ALMA ROSARIO NP Feb 10, 2017 09:54
--- NOTE | 2017-02-10 10:08 | RADRPT ---
PROCEDURE: XR Abdomen 1 View. CLINICAL INDICATION: Abdominal pain and distension, vomiting. TECHNIQUE: AP abdomen x-ray. COMPARISON: Yesterday. FINDINGS: Scattered gas is noted in the colon. Multiple gas filled, dilated loops of small bowel are identifi ed in the mid and lower abdomen, measuring up to approximately 6.0 cm. Gastrostomy tube has its dist al end over the expected location of the stomach. No organomegaly is identified. Cholecystectomy cl ips are seen in the right upper quadrant. Hernia mesh is identified over the pelvis. Lower lumbar spine fusion is observed. Degenerative changes are seen in the hips and spine. IMPRESSION: Multiple gas filled, dilated loops of small bowel in the abdomen. Finding suggest small bowel ileus or obstruction.. Distension of small bowel loops appears to mildly increased when compared with pr ior day's exam. If further characterization of the abdomen is needed CT should be considered. RPTAT: AA .Mariusz Vo MD, MD Date Time Electronically viewed and signed by .Mariusz Vo MD, on 02/10/2017 10:08 .P/
[2017-02-10] MEDS: LINEZOLID 600 MG/D5W (PMX) 300 ML IVPB SCH ×2 (11:01→20:41)
[2017-02-10] MEDS: ENOXAPARIN 40 MG/0.4 ML SYG SC SCH (11:02)
[2017-02-10] MEDS ORDERED: ALBUMIN HUMAN 25% 100 ML IV ONE (11:30)
[2017-02-10] MEDS ORDERED: SOD CHLORIDE 0.9% 500 ML IV ONE (11:30)
--- NOTE | 2017-02-10 11:30 | CONS ---
Date/Time of Note Date/Time of Note DATE: 02/10/17 TIME: 11:21 Assessment/Plan Assessment/Plan Additional Assessment/Plan 1. 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 septic shock on levophed 3. Recurrent Multidrug Resistant Urinary tract infection 4. Sacral wound 5. Chronic resp failure 6.S/P Tracheostomy, S/p PEG tube placement 7. Lung CA- Squamous Cell CA Plan: Continue current IV abx , ID following, renally dos abx pt had a distended abodmen with highresidula- TF on hold, NG tube placed, 1300 cc came out S/p 3 % saline on02/09/17- Na only improved from 123 to 125- Urine output dropping down- will give albumin 25% 100ml IV x 1 followed by NS 500cc bolus x 1 followed up by lasix 20mg iV x 1 Pain control ID following will conitnue to follow up on patient, if Na continues to drop then we will consider Tolvaptan by tomorrow Consultation Date/Type/Reason Admit Date/Time Feb 01, 2017 at 15:50 Initial Consult Date 02/08/17 Type of Consultation: NEPHROLOGY Reason for Consultation Hypernatremia, hypercalcemia Referring Provider: DRE LOBATO MD 24 HR Interval Summary Free Text/Dictation pt had very high residual, NG tube was placed,BP labile on levophed gtt , Urine output dropping down Exam/Review of Systems Vital Signs Vitals Vital Signs Date Time Temp Pulse Resp B/P Pulse Ox O2 Delivery O2 Flow Rate FiO2 02/10/17 08:42 103 37 100 35 02/09/17 20:15 98/65 02/09/17 20:00 96.8 Mechanical Ventilator Intake and Output 02/09/17 02/09/17 02/10/17 14:59 22:59 06:59 Intake Total 672.5 ml Output Total 160 ml 300 ml 385 ml Balance -160 ml 372.5 ml -385 ml Exam GENERAL: frail, lethargic HEENT: NG tube in place, NECK: Supple. Tracheostomy present. CHEST: bilateral basilar rales HEART: S1, S2.tachycardia ABDOMEN: Soft, distended, +g tube in place EXTREMITIES: Without cyanosis. SKIN: With unstageable sacral wound. Results Result Diagram: 02/10/17 0429 02/09/172042 Results 24 hrs Laboratory Tests Test 02/09/17 20:43 02/10/17 04:29 Sodium Level 125 L Potassium Level 4.6 Chloride Level 89 L Carbon Dioxide Level 24 Anion Gap 17 H Blood Urea Nitrogen 22 H Creatinine 0.75 Glucose Level 70 Calcium Level 12.2 H White Blood Count 15.4 #H Red Blood Count 4.27 Hemoglobin 11.5 L Hematocrit 35.3 L Mean Corpuscular Volume 82.7 Mean Corpuscular Hemoglobin 26.9 L Mean Corpuscular Hemoglobin Concent 32.6 Red Cell Distribution Width 16.7 H Platelet Count 502 #H Mean Platelet Volume 10.2 Neutrophils % 85.7 H Lymphocytes % 5.9 L Monocytes % 6.0 Eosinophils % 0.5 Basophils % 0.5 Nucleated Red Blood Cells % 0.2 H Lymphocytes # 0.9 Monocytes # 0.9 Eosinophils # 0.1 Basophils # 0.1 Nucleated Red Blood Cells # 0.0 Medications Medications Current Medications Ondansetron HCl (Zofran Inj) 4 mg Q6H PRN IV NAUSEA AND/OR VOMITING Last administered on 02/05/17 09:36; Admin Dose 4 MG; Start 02/01/17 at 22:30 Acetaminophen (Tylenol Tab) 650 mg Q6H PRN PO PAIN LEVEL 1-3 OR FEVER Last administered on 02/04/17 21:08; Admin Dose 650 MG; Start 02/01/17 at 22:30 Acetaminophen/ Hydrocodone Bitart ([place] (5/325)) 1 tab Q6H PRN PO MODERATE PAIN LEVEL 4-6 Last administered on 02/04/17 21:07; Admin Dose 1 TAB; Start at 22:30 Hydromorphone HCl (Dilaudid) 0.5 mg Q4H PRN IV SEVERE PAIN LEVEL 7-10 Last administered on 02/09/17 10:41; Admin Dose 0.5 MG; Start 02/01/17 at 22:30 Docusate Sodium (Colace) 100 mg Q12H PRN PO CONSTIPATION; Start 02/01/17 at 22: 30 Magnesium Hydroxide (Milk Of Mag) 30 ml DAILY PRN PO CONSTIPATION; Start at 22:30 Bisacodyl (Dulcolax) 5 mg DAILY PRN PO CONSTIPATION; Start 02/01/17 at 22:30 Zolpidem Tartrate (Ambien) 5 mg QHS PRN PO SLEEP; Start 02/01/17 at 22:30 Lansoprazole (Prevacid) 30 mg DAILY@06 GTB Last administered on 02/09/17 06:08 ; Admin Dose 30 MG; Start 02/02/17 at 06:00 Enoxaparin Sodium (Lovenox) 40 mg DAILY SC Last administered on 02/10/17 11:02 ; Admin Dose 40 MG; Start 02/02/17 at 09:00 Ascorbic Acid (Vitamin C) 500 mg BID GTB Last administered on 02/09/17 20:51; Admin Dose 500 MG; Start 02/02/17 at 09:00 Diazepam (Valium) 5 mg DAILY PRN GTB ANXIETY Last administered on 02/08/17 20: 27; Admin Dose 5 MG; Start 02/01/17 at 22:30 Duloxetine HCl (Cymbalta) 20 mg DAILY GTB Last administered on 02/09/17 09:34 ; Admin Dose 20 MG; Start 02/02/17 at 09:00 Multivitamins Therapeutic (Theragran) 1 tab DAILY GTB Last administered on 02/09 09:34; Admin Dose 1 TAB; Start 02/02/17 at 09:00 Zinc Sulfate (Zinc Sulfate) 220 mg DAILY GTB Last administered on 02/09/17 09: 34; Admin Dose 220 MG; Start 02/02/17 at 09:00 Lactobacillus Acidophilus (Florajen3 Capsule) 1 each TID NGT Last administered on 02/09/17 20:51; Admin Dose 1 EACH; Start 02/02/17 at 09:00 Lactulose (Enulose) 20 gm BID PO Last administered on 02/09/17 20:51; Admin Dose 20 GM; Start 02/02/17 at 09:00 Collagenase (Santyl) 1 applic DAILY TOP Last administered on 02/10/17 09:24; Admin Dose 1 APPLIC; Start 02/02/17 at 09:00 Collagenase 1 applic 1 applic PRN PRN TOP PRN; Start 02/02/17 at 04:00 Linezolid 300 ml @ 300 mls/hr Q12 IVPB Last administered on 02/10/17 11:01; Admin Dose 300 MLS/HR; Start 02/09/17 at 15:00 Metronidazole 100 ml @ 100 mls/hr Q8 IVPB Last administered on 02/09/17 21:37 ; Admin Dose 100 MLS/HR; Start 02/09/17 at 14:00 Norepinephrine 250 ml @ 1.875 mls/ hr TITRATE IV Last administered on 17:26; Admin Dose 3.75 MLS/HR; Start 02/09/17 at 17:30; Stop 02/10/17 at 17 :29 Norepinephrine 16 mg/Dextrose 500 ml @ 0 mls/hr TITRATE IV ; Start 02/10/17 at 17:30 Colistimethate Sodium/Sodium Chloride (Coly-Mycin/NS) 100 ml @ 200 mls/hr Q12H IVPB ; Start 02/10/17 at 04:00 DIONNE SAUCEDA MD Feb 10, 2017 11:30
--- NOTE | 2017-02-10 11:50 | PN ---
Date/Time of Note Date/Time of Note DATE: 02/10/17 TIME: 11:38 Assessment/Plan Lines/Catheters IV Catheter Type (from Nrs): Peripheral IV George in Place (from Nrs): Yes Assessment/Plan Chief Complaint/Hosp Course 1. Multiple decubitus ulcers with debris -Offload -Optimize nutrition -Vitamin C -Local care with dakins -Debridement sacrococcyx prn when patient medically stable 2. Normocytic anemia: chronic disease vs. acute bleed; no rogerio bleed noted: s/ p PRBC transfusion -monitor -transfuse as needed -stool for OB 3. Sepsis with hypotension: UTI +/- Bacteremia +/- PNA: on pressors -supportive -abx per sensitivities -pulmonary toilette 4. Acute on chronic diastolic heart failure -Judicious fluid management -Cardiac optimization 5. Chronic urinary retention with George 6. Hypoalbuminemia: inflammation/infection +/- malnutrition -as above -nutrition optimization 7. Depression. -Medical management 8. Hypothyroidism by history; TSH elevated -Synthroid 9. . 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 Chronic pain syndrome. Continue pain management. 11. UTI: -abx per sensitivity/ID 12. Leukocytosis: 2/2 bacteremia, uti, wounds; continuing to improve -abx per sensitivity -supportive 13. Abdominal distention: possible ileus vs. obstruction (doubt); pt with ng tube for decompression, having BM -close monitoring Patient seen and examined in collaboration with Dr. Christian Sinclair. Thank you. Problems: Subjective 24 Hr Interval Summary On pressors. NG tube to LCWS with large drainage. Sleepy. Comfortable on vent. No SOB, congested cough, n/v/d/dysuria, excessive wound drainage. Exam/Review of Systems Vital Signs Vitals Vital Signs Date Time Temp Pulse Resp B/P Pulse Ox O2 Delivery O2 Flow Rate FiO2 02/10/17 08:42 103 37 100 35 02/09/17 20:15 98/65 02/09/17 20:00 96.8 Mechanical Ventilator Intake and Output 02/09/17 02/09/17 02/10/17 15:00 23:00 07:00 Intake Total 30 ml 642.5 ml 37.5 ml Output Total 260 ml 245 ml 340 ml Balance -230 ml 397.5 ml -302.5 ml Exam Free Text/Dictation Constitutional: somnolent, (trached), oriented, No distress Psych: flat Head: atraumatic, normocephalic Eyes: nl conjunctiva, nl lids, nl sclera ENMT: mucosa pink and moist, nl external ears & nose, nl lips & teeth; ng tube Neck: non-tender, other (tracheostomy, non-reddened, no drainage noted), supple Respiratory: normal effort, no wheezing Cardiovascular: nl pulses, regular rate and rhythm Gastrointestinal: non-tender, other (gtube, site non-tender, non-reddened), soft, mod distention Musculoskeletal: nl extremities to inspection Extremities: normal pulses Neurological: nl mental status, No nl strength (gen weakness) Skin: No rash; wounds (sacral wound with min/mod dry drainage) Results Result Diagram: 02/10/17 0429 02/09/172042 JERRY SAHU NP Feb 10, 2017 11:50
[2017-02-10] MEDS ORDERED: LIDOCAINE 1% (MPF) 5 ML VIAL SC ONE (12:00)
[2017-02-10 12:20] LABS: AMYLASE 64 U/L (11-123)
--- NOTE | 2017-02-10 12:46 | CONS ---
Date/Time of Note Date/Time of Note DATE: 02/10/17 TIME: 12:45 Assessment/Plan Assessment/Plan Chief Complaint/Hosp Course -Anemia, check stool for OB, post 2 unit of packed red blood cells, continue to monitor H&H. -Left lung squamous carcinoma supportive care no aggressive treatment planned -Sepsis, most likely secondary to urinary tract infection and possible postobstructive pneumonia. Dr. Coleman is following infection disease consultation, follow-up on cultures, continue antibiotics per ID. -Hyponatremia, nephrology f-up, continue IV fluids per renal. -Ventilator dependent respiratory failure with tracheostomy, continue breathing treatments. -COPD -Dysphagia with PEG -History of cardiopulmonary arrest -Multiple wounds present on admission, that is post debridement at last admission. -Hypothyroidism -Chronic urinary retention with George catheter Problems: Consultation Date/Type/Reason Admit Date/Time Feb 01, 2017 at 15:50 Initial Consult Date 02/08/17 [facility] Referring Provider: DRE LOBATO MD 24 HR Interval Summary Free Text/Dictation ALL NOTED Exam/Review of Systems Vital Signs Vitals Vital Signs Date Time Temp Pulse Resp B/P Pulse Ox O2 Delivery O2 Flow Rate FiO2 02/10/17 08:42 103 37 100 35 02/09/17 20:15 98/65 02/09/17 20:00 96.8 Mechanical Ventilator Intake and Output 02/09/17 02/09/17 02/10/17 15:00 23:00 07:00 Intake Total 30 ml 642.5 ml 37.5 ml Output Total 260 ml 245 ml 340 ml Balance -230 ml 397.5 ml -302.5 ml Exam GENERAL: Chronically ill-appearing, frail 66 yo F HEENT: Unremarkable except wearing eyeglasses, missing multiple teeth NECK: Trach (+) secure to Vent CHEST: Rise symmetrical without dyspnea ABDOMEN: Soft EXTREMITIES: Moves all extremities, Without cyanosis. SKIN: See photos -- Hip + large decub sacral unstageable Results Result Diagram: 02/10/1742802/09/172042 Results 24 hrs Laboratory Tests Test 02/09/17 20:43 02/10/17 04:29 02/10/17 10:27 Sodium Level 125 L Potassium Level 4.6 Chloride Level 89 L Carbon Dioxide Level 24 Anion Gap 17 H Blood Urea Nitrogen 22 H Creatinine 0.75 Glucose Level 70 Calcium Level 12.2 H White Blood Count 15.4 #H Red Blood Count 4.27 Hemoglobin 11.5 L Hematocrit 35.3 L Mean Corpuscular Volume 82.7 Mean Corpuscular Hemoglobin 26.9 L Mean Corpuscular Hemoglobin Concent 32.6 Red Cell Distribution Width 16.7 H Platelet Count 502 #H Mean Platelet Volume 10.2 Neutrophils % 85.7 H Lymphocytes % 5.9 L Monocytes % 6.0 Eosinophils % 0.5 Basophils % 0.5 Nucleated Red Blood Cells % 0.2 H Lymphocytes # 0.9 Monocytes # 0.9 Eosinophils # 0.1 Basophils # 0.1 Nucleated Red Blood Cells # 0.0 Amylase Level 64 Lipase 98 Medications Medications Current Medications Ondansetron HCl (Zofran Inj) 4 mg Q6H PRN IV NAUSEA AND/OR VOMITING Last administered on 02/05/17 09:36; Admin Dose 4 MG; Start 02/01/17 at 22:30 Acetaminophen (Tylenol Tab) 650 mg Q6H PRN PO PAIN LEVEL 1-3 OR FEVER Last administered on 02/04/17 21:08; Admin Dose 650 MG; Start 02/01/17 at 22:30 Acetaminophen/ Hydrocodone Bitart ([place] (5/325)) 1 tab Q6H PRN PO MODERATE PAIN LEVEL 4-6 Last administered on 02/04/17 21:07; Admin Dose 1 TAB; Start at 22:30 Hydromorphone HCl (Dilaudid) 0.5 mg Q4H PRN IV SEVERE PAIN LEVEL 7-10 Last administered on 02/09/17 10:41; Admin Dose 0.5 MG; Start 02/01/17 at 22:30 Docusate Sodium (Colace) 100 mg Q12H PRN PO CONSTIPATION; Start 02/01/17 at 22: 30 Magnesium Hydroxide (Milk Of Mag) 30 ml DAILY PRN PO CONSTIPATION; Start at 22:30 Bisacodyl (Dulcolax) 5 mg DAILY PRN PO CONSTIPATION; Start 02/01/17 at 22:30 Zolpidem Tartrate (Ambien) 5 mg QHS PRN PO SLEEP; Start 02/01/17 at 22:30 Lansoprazole (Prevacid) 30 mg DAILY@06 GTB Last administered on 02/09/17 06:08 ; Admin Dose 30 MG; Start 02/02/17 at 06:00 Enoxaparin Sodium (Lovenox) 40 mg DAILY SC Last administered on 02/10/17 11:02 ; Admin Dose 40 MG; Start 02/02/17 at 09:00 Ascorbic Acid (Vitamin C) 500 mg BID GTB Last administered on 02/09/17 20:51; Admin Dose 500 MG; Start 02/02/17 at 09:00 Diazepam (Valium) 5 mg DAILY PRN GTB ANXIETY Last administered on 02/08/17 20: 27; Admin Dose 5 MG; Start 02/01/17 at 22:30 Duloxetine HCl (Cymbalta) 20 mg DAILY GTB Last administered on 02/09/17 09:34 ; Admin Dose 20 MG; Start 02/02/17 at 09:00 Multivitamins Therapeutic (Theragran) 1 tab DAILY GTB Last administered on 02/09 09:34; Admin Dose 1 TAB; Start 02/02/17 at 09:00 Zinc Sulfate (Zinc Sulfate) 220 mg DAILY GTB Last administered on 02/09/17 09: 34; Admin Dose 220 MG; Start 02/02/17 at 09:00 Lactobacillus Acidophilus (Florajen3 Capsule) 1 each TID NGT Last administered on 02/09/17 20:51; Admin Dose 1 EACH; Start 02/02/17 at 09:00 Lactulose (Enulose) 20 gm BID PO Last administered on 02/09/17 20:51; Admin Dose 20 GM; Start 02/02/17 at 09:00 Collagenase (Santyl) 1 applic DAILY TOP Last administered on 02/10/17 09:24; Admin Dose 1 APPLIC; Start 02/02/17 at 09:00 Collagenase 1 applic 1 applic PRN PRN TOP PRN; Start 02/02/17 at 04:00 Linezolid 300 ml @ 300 mls/hr Q12 IVPB Last administered on 02/10/17 11:01; Admin Dose 300 MLS/HR; Start 02/09/17 at 15:00 Metronidazole 100 ml @ 100 mls/hr Q8 IVPB Last administered on 02/09/17 21:37 ; Admin Dose 100 MLS/HR; Start 02/09/17 at 14:00 Norepinephrine 250 ml @ 1.875 mls/ hr TITRATE IV Last administered on t 17:26; Admin Dose 3.75 MLS/HR; Start 02/09/17 at 17:30; Stop 02/10/17 at 17 :29 Norepinephrine 16 mg/Dextrose 500 ml @ 0 mls/hr TITRATE IV ; Start 02/10/17 at 17:30 Colistimethate Sodium/Sodium Chloride (Coly-Mycin/NS) 100 ml @ 200 mls/hr Q12H IVPB ; Start 02/10/17 at 04:00 Furosemide (Lasix) 20 mg ONCE ONCE IV ; Start 02/10/17 at 13:00; Stop 02/10/17 at 13:01 Sodium Hypochlorite (Dakin'S (1/4 Strength)) 1 applic DAILY IRR ; Start at 13:30 DYLLAN CARRION MD Feb 10, 2017 12:46
[2017-02-10] MEDS ORDERED: FUROSEMIDE 20 MG INJ IV ONE (13:00)
--- NOTE | 2017-02-10 13:21 | CONS ---
Date/Time of Note Date/Time of Note DATE: 02/10/17 TIME: 13:19 Assessment/Plan Assessment/Plan Additional Assessment/Plan prob ileus amylase lipase normal plan cont ng suction Consultation Date/Type/Reason Admit Date/Time Feb 01, 2017 at 15:50 Initial Consult Date 02/09/17 Type of Consultation: g i Reason for Consultation abd distension Referring Provider: DRE LOBATO MD 24 HR Interval Summary Free Text/Dictation pt vomitted 1300 cc greenish fluid ng inserted not much drainage abd distended kub dilated vsmall bowel loops Exam/Review of Systems Vital Signs Vitals Vital Signs Date Time Temp Pulse Resp B/P Pulse Ox O2 Delivery O2 Flow Rate FiO2 02/10/17 08:42 103 37 100 35 02/09/17 20:15 98/65 02/09/17 20:00 96.8 Mechanical Ventilator Intake and Output 02/09/17 02/09/17 02/10/17 15:00 23:00 07:00 Intake Total 30 ml 642.5 ml 37.5 ml Output Total 260 ml 245 ml 340 ml Balance -230 ml 397.5 ml -302.5 ml Results Result Diagram: 02/10/17 0429 02/09/17 2043 Results 24 hrs Laboratory Tests Test 02/09/17 20:43 02/10/17 04:29 02/10/17 10:27 Sodium Level 125 L Potassium Level 4.6 Chloride Level 89 L Carbon Dioxide Level 24 Anion Gap 17 H Blood Urea Nitrogen 22 H Creatinine 0.75 Glucose Level 70 Calcium Level 12.2 H White Blood Count 15.4 #H Red Blood Count 4.27 Hemoglobin 11.5 L Hematocrit 35.3 L Mean Corpuscular Volume 82.7 Mean Corpuscular Hemoglobin 26.9 L Mean Corpuscular Hemoglobin Concent 32.6 Red Cell Distribution Width 16.7 H Platelet Count 502 #H Mean Platelet Volume 10.2 Neutrophils % 85.7 H Lymphocytes % 5.9 L Monocytes % 6.0 Eosinophils % 0.5 Basophils % 0.5 Nucleated Red Blood Cells % 0.2 H Lymphocytes # 0.9 Monocytes # 0.9 Eosinophils # 0.1 Basophils # 0.1 Nucleated Red Blood Cells # 0.0 Amylase Level 64 Lipase 98 Medications Medications Current Medications Ondansetron HCl (Zofran Inj) 4 mg Q6H PRN IV NAUSEA AND/OR VOMITING Last administered on 02/05/17 09:36; Admin Dose 4 MG; Start 02/01/17 at 22:30 Acetaminophen (Tylenol Tab) 650 mg Q6H PRN PO PAIN LEVEL 1-3 OR FEVER Last administered on 02/04/17 21:08; Admin Dose 650 MG; Start 02/01/17 at 22:30 Acetaminophen/ Hydrocodone Bitart ([place] (5/325)) 1 tab Q6H PRN PO MODERATE PAIN LEVEL 4-6 Last administered on 02/04/17 21:07; Admin Dose 1 TAB; Start at 22:30 Hydromorphone HCl (Dilaudid) 0.5 mg Q4H PRN IV SEVERE PAIN LEVEL 7-10 Last administered on 02/09/17 10:41; Admin Dose 0.5 MG; Start 02/01/17 at 22:30 Docusate Sodium (Colace) 100 mg Q12H PRN PO CONSTIPATION; Start 02/01/17 at 22: 30 Magnesium Hydroxide (Milk Of Mag) 30 ml DAILY PRN PO CONSTIPATION; Start at 22:30 Bisacodyl (Dulcolax) 5 mg DAILY PRN PO CONSTIPATION; Start 02/01/17 at 22:30 Zolpidem Tartrate (Ambien) 5 mg QHS PRN PO SLEEP; Start 02/01/17 at 22:30 Lansoprazole (Prevacid) 30 mg DAILY@06 GTB Last administered on 02/09/17 06:08 ; Admin Dose 30 MG; Start 02/02/17 at 06:00 Enoxaparin Sodium (Lovenox) 40 mg DAILY SC Last administered on 02/10/17 11:02 ; Admin Dose 40 MG; Start 02/02/17 at 09:00 Ascorbic Acid (Vitamin C) 500 mg BID GTB Last administered on 02/09/17 20:51; Admin Dose 500 MG; Start 02/02/17 at 09:00 Diazepam (Valium) 5 mg DAILY PRN GTB ANXIETY Last administered on 02/08/17 20: 27; Admin Dose 5 MG; Start 02/01/17 at 22:30 Duloxetine HCl (Cymbalta) 20 mg DAILY GTB Last administered on 02/09/17 09:34 ; Admin Dose 20 MG; Start 02/02/17 at 09:00 Multivitamins Therapeutic (Theragran) 1 tab DAILY GTB Last administered on 02/09 09:34; Admin Dose 1 TAB; Start 02/02/17 at 09:00 Zinc Sulfate (Zinc Sulfate) 220 mg DAILY GTB Last administered on 02/09/17 09: 34; Admin Dose 220 MG; Start 02/02/17 at 09:00 Lactobacillus Acidophilus (Florajen3 Capsule) 1 each TID NGT Last administered on 02/09/17 20:51; Admin Dose 1 EACH; Start 02/02/17 at 09:00 Lactulose (Enulose) 20 gm BID PO Last administered on 02/09/17 20:51; Admin Dose 20 GM; Start 02/02/17 at 09:00 Collagenase (Santyl) 1 applic DAILY TOP Last administered on 02/10/17 09:24; Admin Dose 1 APPLIC; Start 02/02/17 at 09:00 Collagenase 1 applic 1 applic PRN PRN TOP PRN; Start 02/02/17 at 04:00 Linezolid 300 ml @ 300 mls/hr Q12 IVPB Last administered on 02/10/17 11:01; Admin Dose 300 MLS/HR; Start 02/09/17 at 15:00 Metronidazole 100 ml @ 100 mls/hr Q8 IVPB Last administered on 02/09/17 21:37 ; Admin Dose 100 MLS/HR; Start 02/09/17 at 14:00 Norepinephrine 250 ml @ 1.875 mls/ hr TITRATE IV Last administered on 17:26; Admin Dose 3.75 MLS/HR; Start 02/09/17 at 17:30; Stop 02/10/17 at 17 :29 Norepinephrine 16 mg/Dextrose 500 ml @ 0 mls/hr TITRATE IV Last administered on 02/10/17 12:51; Admin Dose 37.5 MLS/HR; Start 02/10/17 at 17:30 Colistimethate Sodium/Sodium Chloride (Coly-Mycin/NS) 100 ml @ 200 mls/hr Q12H IVPB ; Start 02/10/17 at 04:00 Sodium Hypochlorite (Dakin'S (1/4 Strength)) 1 applic DAILY IRR ; Start at 13:30 SUNDAR VALVERDE MD Feb 10, 2017 13:21
--- NOTE | 2017-02-10 14:03 | CONS ---
Date/Time of Note Date/Time of Note DATE: 02/10/17 TIME: 13:59 Consult Date/Type/Reason Admit Date/Time Feb 01, 2017 at 15:50 Initial Consult Date 02/09/17 Type of Consultation: Pulm/CCM Ordering Provider: DRE LOBATO MD Subjective Confused; on pressor support. Objective Vital Signs Date Time Temp Pulse Resp B/P Pulse Ox O2 Delivery O2 Flow Rate FiO2 02/10/17 08:42 103 37 100 35 02/09/17 20:15 98/65 02/09/17 20:00 96.8 Mechanical Ventilator Intake and Output 02/09/17 02/09/17 02/10/17 15:00 23:00 07:00 Intake Total 30 ml 642.5 ml 37.5 ml Output Total 260 ml 245 ml 340 ml Balance -230 ml 397.5 ml -302.5 ml Exam HEENT: Neck supple; no JVD; no LAD; trach site clear CVS: RRR, S1 and S2 CHEST: Decreased BS left base ABD: Soft, NT, + BS EXT: No c/c/e Results/Medications Result Diagram: 02/10/17 0429 02/09/173 Results 24 hrs Laboratory Tests Test 02/09/17 20:43 02/10/17 04:29 02/10/17 10:27 Sodium Level 125 L Potassium Level 4.6 Chloride Level 89 L Carbon Dioxide Level 24 Anion Gap 17 H Blood Urea Nitrogen 22 H Creatinine 0.75 Glucose Level 70 Calcium Level 12.2 H White Blood Count 15.4 #H Red Blood Count 4.27 Hemoglobin 11.5 L Hematocrit 35.3 L Mean Corpuscular Volume 82.7 Mean Corpuscular Hemoglobin 26.9 L Mean Corpuscular Hemoglobin Concent 32.6 Red Cell Distribution Width 16.7 H Platelet Count 502 #H Mean Platelet Volume 10.2 Neutrophils % 85.7 H Lymphocytes % 5.9 L Monocytes % 6.0 Eosinophils % 0.5 Basophils % 0.5 Nucleated Red Blood Cells % 0.2 H Lymphocytes # 0.9 Monocytes # 0.9 Eosinophils # 0.1 Basophils # 0.1 Nucleated Red Blood Cells # 0.0 Amylase Level 64 Lipase 98 Medications Current Medications Ondansetron HCl (Zofran Inj) 4 mg Q6H PRN IV NAUSEA AND/OR VOMITING Last administered on 02/05/17 09:36; Admin Dose 4 MG; Start 02/01/17 at 22:30 Acetaminophen (Tylenol Tab) 650 mg Q6H PRN PO PAIN LEVEL 1-3 OR FEVER Last administered on 02/04/17 21:08; Admin Dose 650 MG; Start 02/01/17 at 22:30 Acetaminophen/ Hydrocodone Bitart ([place] (5/325)) 1 tab Q6H PRN PO MODERATE PAIN LEVEL 4-6 Last administered on 02/04/17 21:07; Admin Dose 1 TAB; Start at 22:30 Hydromorphone HCl (Dilaudid) 0.5 mg Q4H PRN IV SEVERE PAIN LEVEL 7-10 Last administered on 02/09/17 10:41; Admin Dose 0.5 MG; Start 02/01/17 at 22:30 Docusate Sodium (Colace) 100 mg Q12H PRN PO CONSTIPATION; Start 02/01/17 at 22: 30 Magnesium Hydroxide (Milk Of Mag) 30 ml DAILY PRN PO CONSTIPATION; Start at 22:30 Bisacodyl (Dulcolax) 5 mg DAILY PRN PO CONSTIPATION; Start 02/01/17 at 22:30 Zolpidem Tartrate (Ambien) 5 mg QHS PRN PO SLEEP; Start 02/01/17 at 22:30 Lansoprazole (Prevacid) 30 mg DAILY@06 GTB Last administered on 02/09/17 06:08 ; Admin Dose 30 MG; Start 02/02/17 at 06:00 Enoxaparin Sodium (Lovenox) 40 mg DAILY SC Last administered on 02/10/17 11:02 ; Admin Dose 40 MG; Start 02/02/17 at 09:00 Ascorbic Acid (Vitamin C) 500 mg BID GTB Last administered on 02/09/17 20:51; Admin Dose 500 MG; Start 02/02/17 at 09:00 Diazepam (Valium) 5 mg DAILY PRN GTB ANXIETY Last administered on 02/08/17 20: 27; Admin Dose 5 MG; Start 02/01/17 at 22:30 Duloxetine HCl (Cymbalta) 20 mg DAILY GTB Last administered on 02/09/17 09:34 ; Admin Dose 20 MG; Start 02/02/17 at 09:00 Multivitamins Therapeutic (Theragran) 1 tab DAILY GTB Last administered on 02/09 09:34; Admin Dose 1 TAB; Start 02/02/17 at 09:00 Zinc Sulfate (Zinc Sulfate) 220 mg DAILY GTB Last administered on 02/09/17 09: 34; Admin Dose 220 MG; Start 02/02/17 at 09:00 Lactobacillus Acidophilus (Florajen3 Capsule) 1 each TID NGT Last administered on 02/09/17 20:51; Admin Dose 1 EACH; Start 02/02/17 at 09:00 Lactulose (Enulose) 20 gm BID PO Last administered on 02/09/17 20:51; Admin Dose 20 GM; Start 02/02/17 at 09:00 Collagenase (Santyl) 1 applic DAILY TOP Last administered on 02/10/17 09:24; Admin Dose 1 APPLIC; Start 02/02/17 at 09:00 Collagenase 1 applic 1 applic PRN PRN TOP PRN; Start 02/02/17 at 04:00 Linezolid 300 ml @ 300 mls/hr Q12 IVPB Last administered on 02/10/17 11:01; Admin Dose 300 MLS/HR; Start 02/09/17 at 15:00 Metronidazole 100 ml @ 100 mls/hr Q8 IVPB Last administered on 02/09/17 21:37 ; Admin Dose 100 MLS/HR; Start 02/09/17 at 14:00 Norepinephrine 250 ml @ 1.875 mls/ hr TITRATE IV Last administered on 17:26; Admin Dose 3.75 MLS/HR; Start 02/09/17 at 17:30; Stop 02/10/17 at 17 :29 Norepinephrine 16 mg/Dextrose 500 ml @ 0 mls/hr TITRATE IV Last administered on 02/10/17 12:51; Admin Dose 37.5 MLS/HR; Start 02/10/17 at 17:30 Colistimethate Sodium/Sodium Chloride (Coly-Mycin/NS) 100 ml @ 200 mls/hr Q12H IVPB ; Start 02/10/17 at 04:00 Sodium Hypochlorite (Dakin'S (1/4 Strength)) 1 applic DAILY IRR ; Start at 13:30 Assessment/Plan Additional Assessment/Plan IMP: 1. Septic Shock 2. Polymicrobial urosepsis 3. HypoNa+ 4. Wound infection 5. VDRF 6. Advanced NSCLC 1. 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 septic shock 3. Recurrent Multidrug Resistant Urinary tract infection 4. Sacral wound 5. Chronic resp failure 6.S/P Tracheostomy, S/p PEG tube placement 7. Lung CA- Squamous Cell CA RECS: 1. Abx per ID 2. Levophed gtt to MAP > 65 3. Follow Na+ 4. Am CXR/ABG 35 min cc time PABLO OSMAN MD Feb 10, 2017 14:03
--- NOTE | 2017-02-10 14:26 | RADRPT ---
PROCEDURE: XR Chest 1 View. CLINICAL INDICATION: Post PICC line placement TECHNIQUE: AP view of the chest was obtained. COMPARISON: February 01, 2017 FINDINGS: The heart size is within normal limits. Calcified atherosclerosis is noted in the aorta. Right-side d PICC line has its tip in the expected location of the distal right innominate vein. Mass-like con solidation in the left mid and lower lung is unchanged. Mild interstitial prominence in both lungs appears stable. The ostomy tube is stable and appears in grossly appropriate location. The osseous structures appear intact. IMPRESSION: Calcified atherosclerosis in the aorta. Right-sided PICC line with its tip in the expected location of the distal right innominate vein. Ad vancement by approximately 9 cm is advised. Stable mass-like consolidation in the left mid and lower lung. Stable diffuse mild interstitial prominence in both lungs. Interstitial prominence could be chronic . RPTAT: AA .Mariusz Vo MD, MD Date Time Electronically viewed and signed by .Mariusz Vo MD, on 02/10/2017 14:25 .P/
--- NOTE | 2017-02-10 14:38 | RADRPT ---
PROCEDURE: XR Chest 1 View. CLINICAL INDICATION: Status post PICC line placement. TECHNIQUE: AP view of the chest was obtained. COMPARISON: February 10, 2017 at 02:14 p.m. FINDINGS: Heart size is within normal limits. Calcified atherosclerosis is seen in the aorta. Right-sided PI CC line has its tip in the expected location of the distal superior vena cava. SI consolidation of the left mid and lower lung is unchanged. Diffuse interstitial prominence in both lungs appears sta ble. Tracheostomy tube is unchanged. Nasogastric tube is stable. The osseous structures are unchan ged. IMPRESSION: Right-sided PICC line with its tip in the expected location of the distal superior vena cava. Stable mass-like consolidation in the left mid and lower lung. Stable interstitial prominence in both lungs. RPTAT: AA .Mariusz Vo MD, Date Time Electronically viewed and signed by .Mariusz Vo MD, on 02/10/2017 14:38 .P/
[2017-02-10] MEDS: SODIUM HYPOCHLORITE 0.125% 473 ML BTL IRR SCH (16:52)
--- NOTE | 2017-02-10 17:07 | RADRPT ---
PROCEDURE: Ultrasound guidance for placement of needle in right upper extremity vein. CLINICAL INDICATION: PICC placement. TECHNIQUE: Limited sonography of the right upper extremity was performed. Ultrasound images were recorded and s tored in the patient's medical record. COMPARISON: Chest radiograph of the same day. FINDINGS: The ultrasound images demonstrate a patent right upper extremity vein. The PICC line was inserted by the PICC line nurse. IMPRESSION: 1. Ultrasound guidance for a needle placement in a right upper extremity vein. 2. The visualized right upper extremity vein is patent. RPTAT: HFN .Haydee Sanz MD, Date Time Electronically viewed and signed by .Haydee Sanz MD, on 02/10/2017 17:06 .N/
--- NOTE | 2017-02-10 17:20 | PN ---
Date/Time of Note Date/Time of Note DATE: 02/10/17 TIME: 17:18 Assessment/Plan VTE Prophylaxis VTE Prophylaxis Intervention: other Lines/Catheters IV [facility]ter Type (from [facility]): Peripheral IV Urinary Cath still in place: Yes Reason Cath still needed: urinary retention Assessment/Plan Assessment/Plan -Sepsis, most likely secondary to urinary tract infection and possible postobstructive pneumonia. Dr. Coleman is following infection disease consultation, follow-up on cultures, continue antibiotics per ID. -Hyponatremia, Dr. Zapata is following a nephrology consultation, continue IV fluids per renal. -Left lung squamous carcinoma -Anemia, check stool for OB, transfuse 1 unit of packed red blood cells, continue to monitor H&H. -Ventilator dependent respiratory failure with tracheostomy, continue breathing treatments. -COPD -Dysphagia with PEG - aspiration precautions -History of cardiopulmonary arrest -Multiple wounds present on admission, that is post debridement at last admission. -Hypothyroidism -Chronic urinary retention with George catheter Total critical care time spent is 30 mins. Further recommendations based on clinical course. Plan of care discussed with Dr. Dozier Subjective 24 Hr Interval Summary Free Text/Dictation remains on trach to vent ., on Levophed 10 mcg/hr.dw staff MRSA nares positive. Constitutional: requiring IVF, requiring O2 Exam/Review of Systems Vital Signs Vitals Vital Signs Date Time Temp Pulse Resp B/P Pulse Ox O2 Delivery O2 Flow Rate FiO2 02/10/17 16:00 97 02/10/17 15:45 34 100 35 02/10/17 15:15 91/55 02/10/17 15:00 Mechanical Ventilator 02/10/17 12:00 98.4 Intake and Output 02/09/17 02/09/17 02/10/17 15:00 23:00 07:00 Intake Total 30 ml 642.5 ml 37.5 ml Output Total 260 ml 245 ml 340 ml Balance -230 ml 397.5 ml -302.5 ml Exam Constitutional: non-verbal Respiratory: diminished breath sounds Cardiovascular: nl pulses Gastrointestinal: non-tender, soft Musculoskeletal: muscle weakness Neurological: lethargic Results Result Diagram: 02/10/17 0429 02/09/172042 Results 24 hrs Laboratory Tests Test 02/09/17 20:43 02/10/17 04:29 02/10/17 10:27 Sodium Level 125 L Potassium Level 4.6 Chloride Level 89 L Carbon Dioxide Level 24 Anion Gap 17 H Blood Urea Nitrogen 22 H Creatinine 0.75 Glucose Level 70 Calcium Level 12.2 H White Blood Count 15.4 #H Red Blood Count 4.27 Hemoglobin 11.5 L Hematocrit 35.3 L Mean Corpuscular Volume 82.7 Mean Corpuscular Hemoglobin 26.9 L Mean Corpuscular Hemoglobin Concent 32.6 Red Cell Distribution Width 16.7 H Platelet Count 502 #H Mean Platelet Volume 10.2 Neutrophils % 85.7 H Lymphocytes % 5.9 L Monocytes % 6.0 Eosinophils % 0.5 Basophils % 0.5 Nucleated Red Blood Cells % 0.2 H Lymphocytes # 0.9 Monocytes # 0.9 Eosinophils # 0.1 Basophils # 0.1 Nucleated Red Blood Cells # 0.0 Amylase Level 64 Lipase 98 Medications Medications Current Medications Ondansetron HCl (Zofran Inj) 4 mg Q6H PRN IV NAUSEA AND/OR VOMITING Last administered on 02/05/17 09:36; Admin Dose 4 MG; Start 02/01/17 at 22:30 Acetaminophen (Tylenol Tab) 650 mg Q6H PRN PO PAIN LEVEL 1-3 OR FEVER Last administered on 02/04/17 21:08; Admin Dose 650 MG; Start 02/01/17 at 22:30 Acetaminophen/ Hydrocodone Bitart ([place] (5/325)) 1 tab Q6H PRN PO MODERATE PAIN LEVEL 4-6 Last administered on 02/04/17 21:07; Admin Dose 1 TAB; Start at 22:30 Hydromorphone HCl (Dilaudid) 0.5 mg Q4H PRN IV SEVERE PAIN LEVEL 7-10 Last administered on 02/09/17 10:41; Admin Dose 0.5 MG; Start 02/01/17 at 22:30 Docusate Sodium (Colace) 100 mg Q12H PRN PO CONSTIPATION; Start 02/01/17 at 22: 30 Magnesium Hydroxide (Milk Of Mag) 30 ml DAILY PRN PO CONSTIPATION; Start at 22:30 Bisacodyl (Dulcolax) 5 mg DAILY PRN PO CONSTIPATION; Start 02/01/17 at 22:30 Zolpidem Tartrate (Ambien) 5 mg QHS PRN PO SLEEP; Start 02/01/17 at 22:30 Lansoprazole (Prevacid) 30 mg DAILY@06 GTB Last administered on 02/09/17 06:08 ; Admin Dose 30 MG; Start 02/02/17 at 06:00 Enoxaparin Sodium (Lovenox) 40 mg DAILY SC Last administered on 02/10/17 11:02 ; Admin Dose 40 MG; Start 02/02/17 at 09:00 Ascorbic Acid (Vitamin C) 500 mg BID GTB Last administered on 02/09/17 20:51; Admin Dose 500 MG; Start 02/02/17 at 09:00 Diazepam (Valium) 5 mg DAILY PRN GTB ANXIETY Last administered on 02/08/17 20: 27; Admin Dose 5 MG; Start 02/01/17 at 22:30 Duloxetine HCl (Cymbalta) 20 mg DAILY GTB Last administered on 02/09/17 09:34 ; Admin Dose 20 MG; Start 02/02/17 at 09:00 Multivitamins Therapeutic (Theragran) 1 tab DAILY GTB Last administered on 02/09 09:34; Admin Dose 1 TAB; Start 02/02/17 at 09:00 Zinc Sulfate (Zinc Sulfate) 220 mg DAILY GTB Last administered on 02/09/17 09: 34; Admin Dose 220 MG; Start 02/02/17 at 09:00 Lactobacillus Acidophilus (Florajen3 Capsule) 1 each TID NGT Last administered on 02/09/17 20:51; Admin Dose 1 EACH; Start 02/02/17 at 09:00 Lactulose (Enulose) 20 gm BID PO Last administered on 02/09/17 20:51; Admin Dose 20 GM; Start 02/02/17 at 09:00 Collagenase (Santyl) 1 applic DAILY TOP Last administered on 02/10/17 09:24; Admin Dose 1 APPLIC; Start 02/02/17 at 09:00 Collagenase 1 applic 1 applic PRN PRN TOP PRN; Start 02/02/17 at 04:00 Linezolid 300 ml @ 300 mls/hr Q12 IVPB Last administered on 02/10/17 11:01; Admin Dose 300 MLS/HR; Start 02/09/17 at 15:00 Metronidazole 100 ml @ 100 mls/hr Q8 IVPB Last administered on 02/10/17 16:52 ; Admin Dose 100 MLS/HR; Start 02/09/17 at 14:00 Norepinephrine 250 ml @ 1.875 mls/ hr TITRATE IV Last administered on 17:26; Admin Dose 3.75 MLS/HR; Start 02/09/17 at 17:30; Stop 02/10/17 at 17 :29 Norepinephrine 16 mg/Dextrose 500 ml @ 0 mls/hr TITRATE IV Last administered on 02/10/17 12:51; Admin Dose 37.5 MLS/HR; Start 02/10/17 at 17:30 Colistimethate Sodium/Sodium Chloride (Coly-Mycin/NS) 100 ml @ 200 mls/hr Q12H IVPB ; Start 02/10/17 at 04:00 Sodium Hypochlorite (Dakin'S (1/4 Strength)) 1 applic DAILY IRR Last administered on 02/10/17 16:52; Admin Dose 1 APPLIC; Start 02/10/17 at 13:30 IV Flush (NS 10 ml) 10 ml PRN PRN IV FLUSH LINE; Start 02/10/17 at 15:30 VIKASH CASTANEDA Feb 10, 2017 17:20
[2017-02-11] VITALS (96 sets, daily range): BP systolic 58–111; BP diastolic 39–91; PULSE 76–117; RESP 21–37
[2017-02-11] MEDS: L ACIDOPHIL/B LACTIS/B LONGUM CAPSULE NGT SCH ×4 (00:07→21:00)
[2017-02-11] MEDS: LACTULOSE 30ML CUP PO SCH ×3 (00:08→21:00)
[2017-02-11] MEDS: ASCORBIC ACID 500 MG TAB GTB SCH ×3 (00:08→21:00)
[2017-02-11] MEDS: IPRATROPIUM (HFA) 12.9 GM INHALER INH SCH ×4 (01:14→19:23)
[2017-02-11] MEDS: ALBUTEROL 18 GM INHALER INH SCH ×4 (01:14→19:23)
[2017-02-11] MEDS: COLISTIMETHATE 100 MG in SOD CHLORIDE 0.9% 100 ML IVPB SCH ×2 (04:47→17:08)
[2017-02-11] MEDS: SODIUM HYPOCHLORITE 0.125% 473 ML BTL IRR SCH (05:00)
[2017-02-11 05:07] LABS: AADO2 Arterial 151.2 mmHg (7.0-24.0); Allen Test ACCEPTAB; Arterial COHb 0 % (0.0-3.0); Arterial Fraction of Oxyhgb 91.9 % (93.0-99.0); Arterial HCO3 22.2 mmol/L (22.0-26.0); Arterial MetHb 0.3 % (0.0-1.5); Arterial Total Hemglobin 10.5 g/dl (12.0-18.0); MODE VENT - AC
[2017-02-11 05:56] LABS: ALBUMIN 2.4 g/dl (3.3-4.9); ALBUMIN/GLOBULIN RATIO 0.53; BILIRUBIN,INDIRECT 0.1 mg/dl (0-1.1); BILIRUBIN,TOTAL 0.1 mg/dl (0.2-1.3); CALCIUM 12.1 mg/dl (8.4-10.2); CREATININE 1.06 mg/dl (0.44-1.00); TOTAL PROTEIN 6.9 g/dl (6.1-8.1)
[2017-02-11] MEDS: LANSOPRAZOLE 30 MG CAP GTB SCH (06:00)
[2017-02-11] MEDS ORDERED: DEXTROSE 50% 50 ML SYRINGE ONE (06:21)
[2017-02-11] MEDS: metroNIDAZOLE 500 MG/NS (PMX) 100 ML IVPB SCH ×3 (06:46→22:52)
[2017-02-11] MEDS ORDERED: DEXTROSE 50% 50 ML SYRINGE IV ONE (07:00)
[2017-02-11] MEDS: ZINC SULFATE 220 MG CAP GTB SCH (09:00)
[2017-02-11] MEDS: DULOXETINE 20 MG CAP DR GTB SCH (09:00)
[2017-02-11] MEDS: MULTIVITAMINS THERAPEUTIC TAB GTB SCH (09:00)
[2017-02-11] MEDS: SODIUM CHLORIDE 23.4% 77 MEQ in DEXTROSE 10% 1,000 ML IV SCH ×2 (09:36→21:13)
[2017-02-11] MEDS: LINEZOLID 600 MG/D5W (PMX) 300 ML IVPB SCH ×2 (09:36→21:12)
[2017-02-11] MEDS: ENOXAPARIN 40 MG/0.4 ML SYG SC SCH (09:37)
[2017-02-11] MEDS: COLLAGENASE 30 GM TUBE TOP SCH (09:40)
--- NOTE | 2017-02-11 12:18 | CONS ---
Date/Time of Note Date/Time of Note DATE: 02/11/17 TIME: 12:15 Assessment/Plan Assessment/Plan Additional Assessment/Plan 1. 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 septic shock on levophed 3. Recurrent Multidrug Resistant Urinary tract infection 4. Sacral wound 5. Chronic resp failure 6.S/P Tracheostomy, S/p PEG tube placement 7. Lung CA- Squamous Cell CA Plan: Continue current IV abx , ID following, renally dos abx NG tube on suction S/p 3 % saline on02/09/17- s/p IV albumin +NS + lasix yesterday, today urine output marginal Pain control ID following will conitnue to follow up on patient, if Na continues to drop then we will consider Tolvaptan or 3 % saline by tomorrow- Currently he is not tolerating G tube so we can give Oral meds tolvaptan- Consultation Date/Type/Reason Admit Date/Time Feb 01, 2017 at 15:50 Initial Consult Date 02/08/17 Type of Consultation: NEPHROLOGY Referring Provider: DRE LOBATO MD 24 HR Interval Summary Free Text/Dictation Na 123, Cr 1.07, BP still labile, in ICU Exam/Review of Systems Vital Signs Vitals Vital Signs Date Time Temp Pulse Resp B/P Pulse Ox O2 Delivery O2 Flow Rate FiO2 02/11/17 11:00 100 29 101/62 100 Mechanical Ventilator 02/11/17 09:30 45 02/11/17 08:00 98.1 Intake and Output 02/10/17 02/10/17 02/11/17 15:00 23:00 07:00 Intake Total 627.5 ml 1000.0 ml Output Total 1340 ml 305 ml 1360 ml Balance -712.5 ml 695.0 ml -1360 ml Exam GENERAL: frail, lethargic HEENT: NG tube in place, NECK: Supple. Tracheostomy present. CHEST: bilateral basilar rales HEART: S1, S2.tachycardia ABDOMEN: Soft, distended, +g tube in place EXTREMITIES: Without cyanosis. SKIN: With unstageable sacral wound. Results Result Diagram: 02/10/17 0429 02/11/17 0450 Results 24 hrs Laboratory Tests Test 02/11/17 04:50 02/11/17 05:00 02/11/17 06:19 02/11/17 06:44 Sodium Level 123 L Potassium Level 4.0 Chloride Level 87 L Carbon Dioxide Level 25 Anion Gap 15 Blood Urea Nitrogen 31 H Creatinine 1.06 H Glucose Level 39 #*L Lactic Acid Level 2.5 *H Calcium Level 12.1 H Total Bilirubin 0.1 L Direct Bilirubin 0.00 Indirect Bilirubin 0.1 Aspartate Amino Transf (AST/SGOT) 41 Alanine Aminotransferase (ALT/SGPT) 29 Alkaline Phosphatase 410 H Total Protein 6.9 Albumin 2.4 L Globulin 4.50 H Albumin/Globulin Ratio 0.53 Blood Gas Specimen Source Blood arterial Arterial Blood Date Drawn 02/11/2017 5:01:08 AM Arterial Blood pH (Temp corrected) 7.464 H Arterial Blood pCO2 (Temp correct) 31.6 L Arterial Blood pO2 (Temp corrected) 61.6 L Arterial Blood HCO3 22.2 Arterial Blood Base Excess -1.0 Arterial Blood Oxygen Saturation 92.2 L Nader Test ACCEPTAB Arterial Blood Gas Puncture Site Right Radial Arterial Blood Carboxyhemoglobin 0 Arterial Blood Methemoglobin 0.3 Blood Gas A-a O2 Differential 151.2 H Oxyhemoglobin Percent 91.9 L Total Hemoglobin 10.5 L Blood Gas Temperature 37.0 Blood Gas Respiration Rate 14.0 Blood Gas Actual Respiration Rate 36 Blood Gas Modality VENT - AC FiO2 35.0 Blood Gas Tidal Volume 450.0 Blood Gas Low PEEP Setting 5.0 Blood Gas Notified Whom MM Blood Gas Notified Time 02/11/2017 5:07:26 AM Bedside Glucose 35 *L 101 Medications Medications Current Medications Ondansetron HCl (Zofran Inj) 4 mg Q6H PRN IV NAUSEA AND/OR VOMITING Last administered on 02/05/17 09:36; Admin Dose 4 MG; Start 02/01/17 at 22:30 Acetaminophen (Tylenol Tab) 650 mg Q6H PRN PO PAIN LEVEL 1-3 OR FEVER Last administered on 02/04/17 21:08; Admin Dose 650 MG; Start 02/01/17 at 22:30 Acetaminophen/ Hydrocodone Bitart ([place] (5/325)) 1 tab Q6H PRN PO MODERATE PAIN LEVEL 4-6 Last administered on 02/04/17 21:07; Admin Dose 1 TAB; Start at 22:30 Hydromorphone HCl (Dilaudid) 0.5 mg Q4H PRN IV SEVERE PAIN LEVEL 7-10 Last administered on 02/09/17 10:41; Admin Dose 0.5 MG; Start 02/01/17 at 22:30 Docusate Sodium (Colace) 100 mg Q12H PRN PO CONSTIPATION; Start 02/01/17 at 22: 30 Magnesium Hydroxide (Milk Of Mag) 30 ml DAILY PRN PO CONSTIPATION; Start at 22:30 Bisacodyl (Dulcolax) 5 mg DAILY PRN PO CONSTIPATION; Start 02/01/17 at 22:30 Zolpidem Tartrate (Ambien) 5 mg QHS PRN PO SLEEP; Start 02/01/17 at 22:30 Lansoprazole (Prevacid) 30 mg DAILY@06 GTB Last administered on 02/09/17 06:08 ; Admin Dose 30 MG; Start 02/02/17 at 06:00 Enoxaparin Sodium (Lovenox) 40 mg DAILY SC Last administered on 02/11/17 09:37 ; Admin Dose 40 MG; Start 02/02/17 at 09:00 Ascorbic Acid (Vitamin C) 500 mg BID GTB Last administered on 02/09/17 20:51; Admin Dose 500 MG; Start 02/02/17 at 09:00 Diazepam (Valium) 5 mg DAILY PRN GTB ANXIETY Last administered on 02/08/17 20: 27; Admin Dose 5 MG; Start 02/01/17 at 22:30 Duloxetine HCl (Cymbalta) 20 mg DAILY GTB Last administered on 02/09/17 09:34 ; Admin Dose 20 MG; Start 02/02/17 at 09:00 Multivitamins Therapeutic (Theragran) 1 tab DAILY GTB Last administered on 02/09 09:34; Admin Dose 1 TAB; Start 02/02/17 at 09:00 Zinc Sulfate (Zinc Sulfate) 220 mg DAILY GTB Last administered on 02/09/17 09: 34; Admin Dose 220 MG; Start 02/02/17 at 09:00 Lactobacillus Acidophilus (Florajen3 Capsule) 1 each TID NGT Last administered on 02/09/17 20:51; Admin Dose 1 EACH; Start 02/02/17 at 09:00 Lactulose (Enulose) 20 gm BID PO Last administered on 02/09/17 20:51; Admin Dose 20 GM; Start 02/02/17 at 09:00 Collagenase (Santyl) 1 applic DAILY TOP Last administered on 02/11/17 09:40; Admin Dose 1 APPLIC; Start 02/02/17 at 09:00 Collagenase 1 applic 1 applic PRN PRN TOP PRN; Start 02/02/17 at 04:00 Linezolid 300 ml @ 300 mls/hr Q12 IVPB Last administered on 02/11/17 09:36; Admin Dose 300 MLS/HR; Start 02/09/17 at 15:00 Metronidazole 100 ml @ 100 mls/hr Q8 IVPB Last administered on 02/11/17 06:46 ; Admin Dose 100 MLS/HR; Start 02/09/17 at 14:00 Norepinephrine 16 mg/Dextrose 500 ml @ 0 mls/hr TITRATE IV Last administered on 02/10/17 23:45; Admin Dose 37.5 MLS/HR; Start 02/10/17 at 17:30 Colistimethate Sodium/Sodium Chloride (Coly-Mycin/NS) 100 ml @ 200 mls/hr Q12H IVPB Last administered on 02/11/17 04:47; Admin Dose 200 MLS/HR; Start at 04:00 Sodium Hypochlorite (Dakin'S (1/4 Strength)) 1 applic DAILY IRR Last administered on 02/11/17 05:00; Admin Dose 1 APPLIC; Start 02/10/17 at 13:30 IV Flush 10 ml 10 ml PRN PRN IV FLUSH LINE; Start 02/10/17 at 15:30 Sodium Chloride/ Dextrose (Nacl/D10w) 1,019.25 ml @ 75 mls/hr [id number] IV Last administered on 02/11/17 09:36; Admin Dose 75 MLS/HR; Start 02/11/17 at 08:00 DIONNE SAUCEDA MD Feb 11, 2017 12:18
--- NOTE | 2017-02-11 13:03 | CONS ---
Date/Time of Note Date/Time of Note DATE: 02/11/17 TIME: 12:57 Consult Date/Type/Reason Admit Date/Time Feb 01, 2017 at 15:50 Initial Consult Date 02/09/17 Type of Consultation: Pulm/CCM Ordering Provider: DRE LOBATO MD Subjective No events on [facility] vent. Objective Vital Signs Date Time Temp Pulse Resp B/P Pulse Ox O2 Delivery O2 Flow Rate FiO2 02/11/17 11:50 99 32 100 45 02/11/17 11:00 101/62 Mechanical Ventilator 02/11/17 08:00 98.1 Intake and Output 02/10/17 02/10/17 02/11/17 15:00 23:00 07:00 Intake Total 627.5 ml 1000.0 ml Output Total 1340 ml 305 ml 1360 ml Balance -712.5 ml 695.0 ml -1360 ml Exam HEENT: Neck supple; no JVD; no LAD; trach site clear CVS: RRR, S1 and S2 CHEST: Decreased BS left base ABD: Soft, NT, + BS EXT: No c/c/e Results/Medications Result Diagram: 02/10/17 0429 02/11/17 0450 Results 24 hrs Laboratory Tests Test 02/11/17 04:50 02/11/17 05:00 02/11/17 06:19 02/11/17 06:44 Sodium Level 123 L Potassium Level 4.0 Chloride Level 87 L Carbon Dioxide Level 25 Anion Gap 15 Blood Urea Nitrogen 31 H Creatinine 1.06 H Glucose Level 39 #*L Lactic Acid Level 2.5 *H Calcium Level 12.1 H Total Bilirubin 0.1 L Direct Bilirubin 0.00 Indirect Bilirubin 0.1 Aspartate Amino Transf (AST/SGOT) 41 Alanine Aminotransferase (ALT/SGPT) 29 Alkaline Phosphatase 410 H Total Protein 6.9 Albumin 2.4 L Globulin 4.50 H Albumin/Globulin Ratio 0.53 Blood Gas Specimen Source Blood arterial Arterial Blood Date Drawn 02/11/2017 5:01:08 AM Arterial Blood pH (Temp corrected) 7.464 H Arterial Blood pCO2 (Temp correct) 31.6 L Arterial Blood pO2 (Temp corrected) 61.6 L Arterial Blood HCO3 22.2 Arterial Blood Base Excess -1.0 Arterial Blood Oxygen Saturation 92.2 L Nader Test ACCEPTAB Arterial Blood Gas Puncture Site Right Radial Arterial Blood Carboxyhemoglobin 0 Arterial Blood Methemoglobin 0.3 Blood Gas A-a O2 Differential 151.2 H Oxyhemoglobin Percent 91.9 L Total Hemoglobin 10.5 L Blood Gas Temperature 37.0 Blood Gas Respiration Rate 14.0 Blood Gas Actual Respiration Rate 36 Blood Gas Modality VENT - AC FiO2 35.0 Blood Gas Tidal Volume 450.0 Blood Gas Low PEEP Setting 5.0 Blood Gas Notified Whom MM Blood Gas Notified Time 02/11/2017 5:07:26 AM Bedside Glucose 35 *L 101 Medications Current Medications Ondansetron HCl (Zofran Inj) 4 mg Q6H PRN IV NAUSEA AND/OR VOMITING Last administered on 02/05/17 09:36; Admin Dose 4 MG; Start 02/01/17 at 22:30 Acetaminophen (Tylenol Tab) 650 mg Q6H PRN PO PAIN LEVEL 1-3 OR FEVER Last administered on 02/04/17 21:08; Admin Dose 650 MG; Start 02/01/17 at 22:30 Acetaminophen/ Hydrocodone Bitart ([place] (5/325)) 1 tab Q6H PRN PO MODERATE PAIN LEVEL 4-6 Last administered on 02/04/17 21:07; Admin Dose 1 TAB; Start at 22:30 Hydromorphone HCl (Dilaudid) 0.5 mg Q4H PRN IV SEVERE PAIN LEVEL 7-10 Last administered on 02/09/17 10:41; Admin Dose 0.5 MG; Start 02/01/17 at 22:30 Docusate Sodium (Colace) 100 mg Q12H PRN PO CONSTIPATION; Start 02/01/17 at 22: 30 Magnesium Hydroxide (Milk Of Mag) 30 ml DAILY PRN PO CONSTIPATION; Start at 22:30 Bisacodyl (Dulcolax) 5 mg DAILY PRN PO CONSTIPATION; Start 02/01/17 at 22:30 Zolpidem Tartrate (Ambien) 5 mg QHS PRN PO SLEEP; Start 02/01/17 at 22:30 Lansoprazole (Prevacid) 30 mg DAILY@06 GTB Last administered on 02/09/17 06:08 ; Admin Dose 30 MG; Start 02/02/17 at 06:00 Enoxaparin Sodium (Lovenox) 40 mg DAILY SC Last administered on 02/11/17 09:37 ; Admin Dose 40 MG; Start 02/02/17 at 09:00 Ascorbic Acid (Vitamin C) 500 mg BID GTB Last administered on 02/09/17 20:51; Admin Dose 500 MG; Start 02/02/17 at 09:00 Diazepam (Valium) 5 mg DAILY PRN GTB ANXIETY Last administered on 02/08/17 20: 27; Admin Dose 5 MG; Start 02/01/17 at 22:30 Duloxetine HCl (Cymbalta) 20 mg DAILY GTB Last administered on 02/09/17 09:34 ; Admin Dose 20 MG; Start 02/02/17 at 09:00 Multivitamins Therapeutic (Theragran) 1 tab DAILY GTB Last administered on 02/09 09:34; Admin Dose 1 TAB; Start 02/02/17 at 09:00 Zinc Sulfate (Zinc Sulfate) 220 mg DAILY GTB Last administered on 02/09/17 09: 34; Admin Dose 220 MG; Start 02/02/17 at 09:00 Lactobacillus Acidophilus (Florajen3 Capsule) 1 each TID NGT Last administered on 02/09/17 20:51; Admin Dose 1 EACH; Start 02/02/17 at 09:00 Lactulose (Enulose) 20 gm BID PO Last administered on 02/09/17 20:51; Admin Dose 20 GM; Start 02/02/17 at 09:00 Collagenase (Santyl) 1 applic DAILY TOP Last administered on 02/11/17 09:40; Admin Dose 1 APPLIC; Start 02/02/17 at 09:00 Collagenase 1 applic 1 applic PRN PRN TOP PRN; Start 02/02/17 at 04:00 Linezolid 300 ml @ 300 mls/hr Q12 IVPB Last administered on 02/11/17 09:36; Admin Dose 300 MLS/HR; Start 02/09/17 at 15:00 Metronidazole 100 ml @ 100 mls/hr Q8 IVPB Last administered on 02/11/17 06:46 ; Admin Dose 100 MLS/HR; Start 02/09/17 at 14:00 Norepinephrine 16 mg/Dextrose 500 ml @ 0 mls/hr TITRATE IV Last administered on 02/10/17 23:45; Admin Dose 37.5 MLS/HR; Start 02/10/17 at 17:30 Colistimethate Sodium/Sodium Chloride (Coly-Mycin/NS) 100 ml @ 200 mls/hr Q12H IVPB Last administered on 02/11/17 04:47; Admin Dose 200 MLS/HR; Start at 04:00 Sodium Hypochlorite (Dakin'S (1/4 Strength)) 1 applic DAILY IRR Last administered on 02/11/17 05:00; Admin Dose 1 APPLIC; Start 02/10/17 at 13:30 IV Flush 10 ml 10 ml PRN PRN IV FLUSH LINE; Start 02/10/17 at 15:30 Sodium Chloride/ Dextrose (Nacl/D10w) 1,019.25 ml @ 75 mls/hr [id number] IV Last administered on 02/11/17 09:36; Admin Dose 75 MLS/HR; Start 02/11/17 at 08:00 Assessment/Plan Additional Assessment/Plan IMP: 1. Septic Shock 2. Polymicrobial urosepsis 3. HypoNa+ 4. Wound infection 5. VDRF 6. Advanced NSCLC 7. Hypoglycemia RECS: 1. Abx per ID 2. Levophed gtt to MAP > 65 3. Follow Na+ 4. D10 5. Goals of care discussion/Palliative Care consult 35 min cc time PABLO OSMAN MD Feb 11, 2017 13:03
--- NOTE | 2017-02-11 13:29 | RADRPT ---
PROCEDURE: XR Chest. CLINICAL INDICATION: Shortness of breath. TECHNIQUE: Single frontal view. COMPARISON: 02/10/2017. FINDINGS: The tracheostomy tube, right arm PICC line, and nasogastric tube remain in satisfactory position. T here is a mass-like consolidation in the left mid and lower lung zones, unchanged. Bilateral inters titial disease is also unchanged. The heart size is normal. There is no pleural effusion. There is no pneumothorax. IMPRESSION: 1. No change from 02/10/2017. RPTAT: QQ .Eduardo Silva MD, MD Date Time Electronically viewed and signed by .Eduardo Silva MD, MD on 02/11/2017 13:29 .R/
[2017-02-11] MEDS: MUPIROCIN 2% 22 GM OINT TOP SCH ×2 (15:09→23:00)
--- NOTE | 2017-02-11 15:19 | PN ---
Date/Time of Note Date/Time of Note DATE: 02/11/17 TIME: 15:10 Assessment/Plan Lines/Catheters IV Catheter Type (from Nrs): PICC Line George in Place (from Nrs): Yes Assessment/Plan Chief Complaint/Hosp Course 1. Multiple decubitus ulcers with debris -Offload -Optimize nutrition -Vitamin C -Local care with dakins -Debridement sacrococcyx prn when patient medically stable 2. Normocytic anemia: chronic disease vs. acute bleed; no rogerio bleed noted: s/ p PRBC transfusion -monitor -transfuse as needed -stool for OB 3. Sepsis with hypotension and hypoglycemia: UTI +/- Bacteremia +/- PNA: on pressors -supportive -abx per sensitivities -pulmonary toilette -optimize blood sugar 4. Acute on chronic diastolic heart failure -Judicious fluid management -Cardiac optimization 5. Chronic urinary retention with George 6. Hypoalbuminemia: inflammation/infection +/- malnutrition -as above -nutrition optimization 7. Depression. -Medical management 8. Hypothyroidism by history; TSH elevated -Synthroid 9. . 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 Chronic pain syndrome. Continue pain management. 11. UTI: -abx per sensitivity/ID 12. Leukocytosis: 2/2 bacteremia, uti, wounds; continuing to improve -abx per sensitivity -supportive 13. Abdominal distention: possible ileus vs. obstruction; pt with ng tube for decompression, no BM currently -close monitoring 14. Sever hyponatremia: hypovolemic -per renal -judicious fluids Patient seen and examined in collaboration with Dr. Christian Sinclair. Thank you. Problems: Subjective 24 Hr Interval Summary Awake, responsive. Discomfort from abdomen. Large gastric secretions from ngt. No bm/flatus. Continues on pressors. No fevers, chills, robles, dizziness, cp, palpitations. dysuria. Exam/Review of Systems Vital Signs Vitals Vital Signs Date Time Temp Pulse Resp B/P Pulse Ox O2 Delivery O2 Flow Rate FiO2 02/11/17 13:25 96 30 100 45 02/11/17 11:00 101/62 Mechanical Ventilator 02/11/17 08:00 98.1 Intake and Output 02/10/17 02/10/17 02/11/17 15:00 23:00 07:00 Intake Total 627.5 ml 1000.0 ml Output Total 1340 ml 305 ml 1360 ml Balance -712.5 ml 695.0 ml -1360 ml Exam Free Text/Dictation Constitutional: somnolent, (trached), oriented, No distress Psych: flat Head: atraumatic, normocephalic Eyes: nl conjunctiva, nl lids, nl sclera ENMT: mucosa pink and moist, nl external ears & nose, nl lips & teeth; ng tube with large green drainage Neck: non-tender, other (tracheostomy, non-reddened, no drainage noted), supple Respiratory: normal effort, no wheezing Cardiovascular: nl pulses, regular rate and rhythm Gastrointestinal: non-tender, other (gtube, site non-tender, non-reddened), distention Musculoskeletal: nl extremities to inspection Extremities: normal pulses Neurological: nl mental status, No nl strength (gen weakness) Skin: No rash; wounds (sacral wound with min/mod dry drainage) Results Result Diagram: 02/10/17 0429 02/11/17 0450 JERRY SAHU NP Feb 11, 2017 15:19
--- NOTE | 2017-02-11 15:50 | PN ---
Date/Time of Note Date/Time of Note DATE: 02/11/17 TIME: 15:43 Assessment/Plan VTE Prophylaxis VTE Prophylaxis Intervention: other Lines/Catheters IV Catheter Type (from [facility]): PICC Line Central line still needed: Yes Urinary Cath still in place: Yes Reason Cath still needed: urinary retention Assessment/Plan Assessment/Plan CHEMICAL CODE -Sepsis, most likely secondary to urinary tract infection and possible postobstructive pneumonia. Dr. Coleman is following infection disease consultation, follow-up on cultures, continue antibiotics per ID. -Hyponatremia, Dr. Zapata is following a nephrology consultation, continue IV fluids per renal. -Left lung squamous carcinoma -Anemia, check stool for OB, transfuse 1 unit of packed red blood cells, continue to monitor H&H. -Ventilator dependent respiratory failure with tracheostomy, continue breathing treatments. -COPD -Dysphagia with PEG - aspiration precautions -History of cardiopulmonary arrest -Multiple wounds present on admission, that is post debridement at last admission. -Hypothyroidism -Chronic urinary retention with George catheter Total critical care time spent is 30 mins. Further recommendations based on clinical course. Plan of care discussed with Dr. Dozier Subjective 24 Hr Interval Summary Subjective hx not possible: pt non-verbal, pt critical status Constitutional: requiring IVF, requiring O2 Exam/Review of Systems Vital Signs Vitals Vital Signs Date Time Temp Pulse Resp B/P Pulse Ox O2 Delivery O2 Flow Rate FiO2 02/11/17 13:25 96 30 100 45 02/11/17 11:00 101/62 Mechanical Ventilator 02/11/17 08:00 98.1 Intake and Output 02/10/17 02/10/17 02/11/17 15:00 23:00 07:00 Intake Total 627.5 ml 1000.0 ml Output Total 1340 ml 305 ml 1360 ml Balance -712.5 ml 695.0 ml -1360 ml Exam Constitutional: frail, non-verbal Psych: confusion Respiratory: diminished breath sounds Cardiovascular: nl pulses Gastrointestinal: non-tender, soft Musculoskeletal: other Extremities: normal pulses Neurological: unresponsive Results Result Diagram: 02/10/17 0429 02/11/17 0450 Results 24 hrs Laboratory Tests Test 02/11/17 04:50 02/11/17 05:00 02/11/17 06:19 02/11/17 06:44 Sodium Level 123 L Potassium Level 4.0 Chloride Level 87 L Carbon Dioxide Level 25 Anion Gap 15 Blood Urea Nitrogen 31 H Creatinine 1.06 H Glucose Level 39 #*L Lactic Acid Level 2.5 *H Calcium Level 12.1 H Total Bilirubin 0.1 L Direct Bilirubin 0.00 Indirect Bilirubin 0.1 Aspartate Amino Transf (AST/SGOT) 41 Alanine Aminotransferase (ALT/SGPT) 29 Alkaline Phosphatase 410 H Total Protein 6.9 Albumin 2.4 L Globulin 4.50 H Albumin/Globulin Ratio 0.53 Blood Gas Specimen Source Blood arterial Arterial Blood Date Drawn 02/11/2017 5:01:08 AM Arterial Blood pH (Temp corrected) 7.464 H Arterial Blood pCO2 (Temp correct) 31.6 L Arterial Blood pO2 (Temp corrected) 61.6 L Arterial Blood HCO3 22.2 Arterial Blood Base Excess -1.0 Arterial Blood Oxygen Saturation 92.2 L Nader Test ACCEPTAB Arterial Blood Gas Puncture Site Right Radial Arterial Blood Carboxyhemoglobin 0 Arterial Blood Methemoglobin 0.3 Blood Gas A-a O2 Differential 151.2 H Oxyhemoglobin Percent 91.9 L Total Hemoglobin 10.5 L Blood Gas Temperature 37.0 Blood Gas Respiration Rate 14.0 Blood Gas Actual Respiration Rate 36 Blood Gas Modality VENT - AC FiO2 35.0 Blood Gas Tidal Volume 450.0 Blood Gas Low PEEP Setting 5.0 Blood Gas Notified Whom MM Blood Gas Notified Time 02/11/2017 5:07:26 AM Bedside Glucose 35 *L 101 Medications Medications Current Medications Ondansetron HCl (Zofran Inj) 4 mg Q6H PRN IV NAUSEA AND/OR VOMITING Last administered on 02/05/17 09:36; Admin Dose 4 MG; Start 02/01/17 at 22:30 Acetaminophen (Tylenol Tab) 650 mg Q6H PRN PO PAIN LEVEL 1-3 OR FEVER Last administered on 02/04/17 21:08; Admin Dose 650 MG; Start 02/01/17 at 22:30 Acetaminophen/ Hydrocodone Bitart ([place] (5/325)) 1 tab Q6H PRN PO MODERATE PAIN LEVEL 4-6 Last administered on 02/04/17 21:07; Admin Dose 1 TAB; Start at 22:30 Hydromorphone HCl (Dilaudid) 0.5 mg Q4H PRN IV SEVERE PAIN LEVEL 7-10 Last administered on 02/09/17 10:41; Admin Dose 0.5 MG; Start 02/01/17 at 22:30 Docusate Sodium (Colace) 100 mg Q12H PRN PO CONSTIPATION; Start 02/01/17 at 22: 30 Magnesium Hydroxide (Milk Of Mag) 30 ml DAILY PRN PO CONSTIPATION; Start at 22:30 Bisacodyl (Dulcolax) 5 mg DAILY PRN PO CONSTIPATION; Start 02/01/17 at 22:30 Zolpidem Tartrate (Ambien) 5 mg QHS PRN PO SLEEP; Start 02/01/17 at 22:30 Lansoprazole (Prevacid) 30 mg DAILY@06 GTB Last administered on 02/09/17 06:08 ; Admin Dose 30 MG; Start 02/02/17 at 06:00 Enoxaparin Sodium (Lovenox) 40 mg DAILY SC Last administered on 02/11/17 09:37 ; Admin Dose 40 MG; Start 02/02/17 at 09:00 Ascorbic Acid (Vitamin C) 500 mg BID GTB Last administered on 02/09/17 20:51; Admin Dose 500 MG; Start 02/02/17 at 09:00 Diazepam (Valium) 5 mg DAILY PRN GTB ANXIETY Last administered on 02/08/17 20: 27; Admin Dose 5 MG; Start 02/01/17 at 22:30 Duloxetine HCl (Cymbalta) 20 mg DAILY GTB Last administered on 02/09/17 09:34 ; Admin Dose 20 MG; Start 02/02/17 at 09:00 Multivitamins Therapeutic (Theragran) 1 tab DAILY GTB Last administered on 02/09 09:34; Admin Dose 1 TAB; Start 02/02/17 at 09:00 Zinc Sulfate (Zinc Sulfate) 220 mg DAILY GTB Last administered on 02/09/17 09: 34; Admin Dose 220 MG; Start 02/02/17 at 09:00 Lactobacillus Acidophilus (Florajen3 Capsule) 1 each TID NGT Last administered on 02/09/17 20:51; Admin Dose 1 EACH; Start 02/02/17 at 09:00 Lactulose (Enulose) 20 gm BID PO Last administered on 02/09/17 20:51; Admin Dose 20 GM; Start 02/02/17 at 09:00 Collagenase (Santyl) 1 applic DAILY TOP Last administered on 02/11/17 09:40; Admin Dose 1 APPLIC; Start 02/02/17 at 09:00 Collagenase 1 applic 1 applic PRN PRN TOP PRN; Start 02/02/17 at 04:00 Linezolid 300 ml @ 300 mls/hr Q12 IVPB Last administered on 02/11/17 09:36; Admin Dose 300 MLS/HR; Start 02/09/17 at 15:00 Metronidazole 100 ml @ 100 mls/hr Q8 IVPB Last administered on 02/11/17 15:09 ; Admin Dose 100 MLS/HR; Start 02/09/17 at 14:00 Norepinephrine 16 mg/Dextrose 500 ml @ 0 mls/hr TITRATE IV Last administered on 02/11/17 13:53; Admin Dose 43.12 MLS/HR; Start 02/10/17 at 17:30 Colistimethate Sodium/Sodium Chloride (Coly-Mycin/NS) 100 ml @ 200 mls/hr Q12H IVPB Last administered on 02/11/17 04:47; Admin Dose 200 MLS/HR; Start at 04:00 Sodium Hypochlorite ([place] (1/4 Strength)) 1 applic DAILY IRR Last administered on 02/11/17 05:00; Admin Dose 1 APPLIC; Start 02/10/17 at 13:30 IV Flush 10 ml 10 ml PRN PRN IV FLUSH LINE; Start 02/10/17 at 15:30 Sodium Chloride/ Dextrose (Nacl/D10w) 1,019.25 ml @ 75 mls/hr [id number] IV Last administered on 02/11/17 09:36; Admin Dose 75 MLS/HR; Start 02/11/17 at 08:00 Mupirocin (Bactroban) 1 applic BID TOP Last administered on 02/11/17 15:09; Admin Dose 1 APPLIC; Start 02/11/17 at 14:00 VIKASH CASTANEDA Feb 11, 2017 15:50
--- NOTE | 2017-02-11 16:46 | CONS ---
Date/Time of Note Date/Time of Note DATE: 02/11/17 TIME: 16:44 Assessment/Plan Assessment/Plan Chief Complaint/Hosp Course ID PROGRESS NOTE ABX Day # => Zyvox #3 + Colistin IV #3 + Flagyl #3 s/p IV Bactrim/Cefepime s/p Vanco 24H INTERVAL SUMMARY * No new issues --- afebrile, WBC down to 15.4, * Severe hyponatremia.Acute on chronic Due to SIADH + Hypovolemic Hyponatremia - s/p 3% saline on 02/09/17 * MICROBIOLOGY: * Urine (+) Acinetobacter baumannii. * Nares (+)MRSA. * Wound cx: (+)ACBA, MRSA, VRE, PSAR, Stenotrophomonas maltophilia, Proteus mirabilis. PHYSICAL EXAMINATION: GENERAL: Chronically ill-appearing, frail 66 yo F HEENT: Unremarkable except wearing eyeglasses, missing multiple teeth NECK: Trach (+) secure to Vent CHEST: Rise symmetrical without dyspnea ABDOMEN: Soft EXTREMITIES: Moves all extremities, Without cyanosis. SKIN: See photos -- Hip + large decub sacral unstageable ID ASSESSMENT: 66 yo F w/PMHx Dementia, CVA(chronic left thalamic lacunar infarction), Tobacco/ COPD-Emphysema/Lung Cancer re-admit with: 1. s/p Sepsis on admission w/septic + hypovolemic shock, leukocytosis, low grade temps=> Multifactorial * Afebrile current * Hx of Chronic mild tachycardia - albuterol * Leukocytosis => Down today w/hx of chronic elevated WBC 2. Recurrent Complicated UTI, => due to urinary retention with chronic George = > Probable neurogenic bladder * Urine Cx: 02/01 (+)ACBA; 02/02 (+)ACBA 3. 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 Acute on chronic anemia 5. GERD, Dysphagia, hx GIB 6. Chronic respiratory failure w/Tracheostomy = Multifactorial * COPD: Tobaccoism * Aspiration Pneumonitis = 02/02 Sputum (+)PSAR, StenMaltophilia, Proteus Mirabilis * Hx of PSAR HCAP w/PSAR Trach colonization * Hx of lung cancer w/lobe resection remote 7. 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 H/O DJD spine -> Hx of lumbar spinal fusion 9. Hx of recurrent C.Diff colitis 10. Chronic debility w/Cachexia 11. Chronic pain issues 12. Psych Dx NOS: Hx of Dementia w/intermittent agitative features 13. DECUBS: * Sacral decub: s/p debridement 01/11/17 ; 02/02 Wound cx: (+)ACBA, MRSA, VRE, PSAR, Stenotrophomonas maltophilia, Proteus mirabilis. * Hip Wound Cx 02/01: (+)MM, CRKP, MRSA, VRE (+) MRSA Nares screen ->Bactroban INVASIVES: PICC (01/09/17), FC, Peg ALLERGY: PENICILLIN. CURRENT ABX: Zyvox #3 + Colistin IV #3 + Flagyl #3 s/p IV Bactrim/Cefepime s/p Vanco ID PLAN * Continue current ABX; recurrent acute on chronic sepsis difficult to eradicate ; she is growing multiple ABX resistant organism . Problems: Consultation Date/Type/Reason Admit Date/Time Feb 01, 2017 at 15:50 Initial Consult Date 02/09/17 Type of Consultation: ID Referring Provider: DRE LOBATO MD Exam/Review of Systems Vital Signs Vitals Vital Signs Date Time Temp Pulse Resp B/P Pulse Ox O2 Delivery O2 Flow Rate FiO2 02/11/17 15:52 89 30 100 45 02/11/17 11:00 101/62 Mechanical Ventilator 02/11/17 08:00 98.1 Intake and Output 02/10/17 02/10/17 02/11/17 15:00 23:00 07:00 Intake Total 627.5 ml 1000.0 ml Output Total 1340 ml 305 ml 1360 ml Balance -712.5 ml 695.0 ml -1360 ml Results Result Diagram: 02/10/17 0429 02/11/17 0450 Results 24 hrs Laboratory Tests Test 02/11/17 04:50 02/11/17 05:00 02/11/17 06:19 02/11/17 06:44 Sodium Level 123 L Potassium Level 4.0 Chloride Level 87 L Carbon Dioxide Level 25 Anion Gap 15 Blood Urea Nitrogen 31 H Creatinine 1.06 H Glucose Level 39 #*L Lactic Acid Level 2.5 *H Calcium Level 12.1 H Total Bilirubin 0.1 L Direct Bilirubin 0.00 Indirect Bilirubin 0.1 Aspartate Amino Transf (AST/SGOT) 41 Alanine Aminotransferase (ALT/SGPT) 29 Alkaline Phosphatase 410 H Total Protein 6.9 Albumin 2.4 L Globulin 4.50 H Albumin/Globulin Ratio 0.53 Blood Gas Specimen Source Blood arterial Arterial Blood Date Drawn 02/11/2017 5:01:08 AM Arterial Blood pH (Temp corrected) 7.464 H Arterial Blood pCO2 (Temp correct) 31.6 L Arterial Blood pO2 (Temp corrected) 61.6 L Arterial Blood HCO3 22.2 Arterial Blood Base Excess -1.0 Arterial Blood Oxygen Saturation 92.2 L Nader Test ACCEPTAB Arterial Blood Gas Puncture Site Right Radial Arterial Blood Carboxyhemoglobin 0 Arterial Blood Methemoglobin 0.3 Blood Gas A-a O2 Differential 151.2 H Oxyhemoglobin Percent 91.9 L Total Hemoglobin 10.5 L Blood Gas Temperature 37.0 Blood Gas Respiration Rate 14.0 Blood Gas Actual Respiration Rate 36 Blood Gas Modality VENT - AC FiO2 35.0 Blood Gas Tidal Volume 450.0 Blood Gas Low PEEP Setting 5.0 Blood Gas Notified Whom MM Blood Gas Notified Time 02/11/2017 5:07:26 AM Bedside Glucose 35 *L 101 Medications Medications Current Medications Ondansetron HCl (Zofran Inj) 4 mg Q6H PRN IV NAUSEA AND/OR VOMITING Last administered on 02/05/17 09:36; Admin Dose 4 MG; Start 02/01/17 at 22:30 Acetaminophen (Tylenol Tab) 650 mg Q6H PRN PO PAIN LEVEL 1-3 OR FEVER Last administered on 02/04/17 21:08; Admin Dose 650 MG; Start 02/01/17 at 22:30 Acetaminophen/ Hydrocodone Bitart ([place] (5/325)) 1 tab Q6H PRN PO MODERATE PAIN LEVEL 4-6 Last administered on 02/04/17 21:07; Admin Dose 1 TAB; Start at 22:30 Hydromorphone HCl (Dilaudid) 0.5 mg Q4H PRN IV SEVERE PAIN LEVEL 7-10 Last administered on 02/09/17 10:41; Admin Dose 0.5 MG; Start 02/01/17 at 22:30 Docusate Sodium (Colace) 100 mg Q12H PRN PO CONSTIPATION; Start 02/01/17 at 22: 30 Magnesium Hydroxide (Milk Of Mag) 30 ml DAILY PRN PO CONSTIPATION; Start at 22:30 Bisacodyl (Dulcolax) 5 mg DAILY PRN PO CONSTIPATION; Start 02/01/17 at 22:30 Zolpidem Tartrate (Ambien) 5 mg QHS PRN PO SLEEP; Start 02/01/17 at 22:30 Lansoprazole (Prevacid) 30 mg DAILY@06 GTB Last administered on 02/09/17 06:08 ; Admin Dose 30 MG; Start 02/02/17 at 06:00 Enoxaparin Sodium (Lovenox) 40 mg DAILY SC Last administered on 02/11/17 09:37 ; Admin Dose 40 MG; Start 02/02/17 at 09:00 Ascorbic Acid (Vitamin C) 500 mg BID GTB Last administered on 02/09/17 20:51; Admin Dose 500 MG; Start 02/02/17 at 09:00 Diazepam (Valium) 5 mg DAILY PRN GTB ANXIETY Last administered on 02/08/17 20: 27; Admin Dose 5 MG; Start 02/01/17 at 22:30 Duloxetine HCl (Cymbalta) 20 mg DAILY GTB Last administered on 02/09/17 09:34 ; Admin Dose 20 MG; Start 02/02/17 at 09:00 Multivitamins Therapeutic (Theragran) 1 tab DAILY GTB Last administered on 02/09 09:34; Admin Dose 1 TAB; Start 02/02/17 at 09:00 Zinc Sulfate (Zinc Sulfate) 220 mg DAILY GTB Last administered on 02/09/17 09: 34; Admin Dose 220 MG; Start 02/02/17 at 09:00 Lactobacillus Acidophilus (Florajen3 Capsule) 1 each TID NGT Last administered on 02/09/17 20:51; Admin Dose 1 EACH; Start 02/02/17 at 09:00 Lactulose (Enulose) 20 gm BID PO Last administered on 02/09/17 20:51; Admin Dose 20 GM; Start 02/02/17 at 09:00 Collagenase (Santyl) 1 applic DAILY TOP Last administered on 02/11/17 09:40; Admin Dose 1 APPLIC; Start 02/02/17 at 09:00 Collagenase 1 applic 1 applic PRN PRN TOP PRN; Start 02/02/17 at 04:00 Linezolid 300 ml @ 300 mls/hr Q12 IVPB Last administered on 02/11/17 09:36; Admin Dose 300 MLS/HR; Start 02/09/17 at 15:00 Metronidazole 100 ml @ 100 mls/hr Q8 IVPB Last administered on 02/11/17 15:09 ; Admin Dose 100 MLS/HR; Start 02/09/17 at 14:00 Norepinephrine 16 mg/Dextrose 500 ml @ 0 mls/hr TITRATE IV Last administered on 02/11/17 13:53; Admin Dose 43.12 MLS/HR; Start 02/10/17 at 17:30 Colistimethate Sodium/Sodium Chloride (Coly-Mycin/NS) 100 ml @ 200 mls/hr Q12H IVPB Last administered on 02/11/17 04:47; Admin Dose 200 MLS/HR; Start at 04:00 Sodium Hypochlorite (Dakin'S (1/4 Strength)) 1 applic DAILY IRR Last administered on 02/11/17 05:00; Admin Dose 1 APPLIC; Start 02/10/17 at 13:30 IV Flush 10 ml 10 ml PRN PRN IV FLUSH LINE; Start 02/10/17 at 15:30 Sodium Chloride/ Dextrose (Nacl/D10w) 1,019.25 ml @ 75 mls/hr [id number] IV Last administered on 02/11/17 09:36; Admin Dose 75 MLS/HR; Start 02/11/17 at 08:00 Mupirocin (Bactroban) 1 applic BID TOP Last administered on 02/11/17 15:09; Admin Dose 1 APPLIC; Start 02/11/17 at 14:00 ALMA ROSARIO NP Feb 11, 2017 16:46
--- NOTE | 2017-02-11 21:05 | CONS ---
Date/Time of Note Date/Time of Note DATE: 02/11/17 TIME: 21:03 Assessment/Plan Assessment/Plan Chief Complaint/Hosp Course -Anemia, stool for OB - P post 2 unit of packed red blood cells, continue to monitor H&H. -Left lung squamous carcinoma supportive care no aggressive treatment planned -Sepsis, most likely secondary to urinary tract infection and possible postobstructive pneumonia. Dr. Coleman is following infection disease consultation, follow-up on cultures, continue antibiotics per ID. -Hyponatremia, nephrology f-up, continue IV fluids per renal. -Ventilator dependent respiratory failure with tracheostomy, continue breathing treatments. -COPD -Dysphagia with PEG -History of cardiopulmonary arrest -Multiple wounds present on admission, that is post debridement at last admission. -Hypothyroidism -Chronic urinary retention with George catheter Problems: Consultation Date/Type/Reason Admit Date/Time Feb 01, 2017 at 15:50 Initial Consult Date 02/08/17 [facility] Referring Provider: DRE LOBATO MD 24 HR Interval Summary Free Text/Dictation all noted Exam/Review of Systems Vital Signs Vitals Vital Signs Date Time Temp Pulse Resp B/P Pulse Ox O2 Delivery O2 Flow Rate FiO2 02/11/17 19:00 92 31 99/59 100 Mechanical Ventilator 02/11/17 17:37 45 02/11/17 16:00 97.9 Intake and Output 02/10/17 02/10/17 02/11/17 15:00 23:00 07:00 Intake Total 627.5 ml 1000.0 ml Output Total 1340 ml 305 ml 1360 ml Balance -712.5 ml 695.0 ml -1360 ml Exam GENERAL: Chronically ill-appearing, frail 66 yo F HEENT: Unremarkable except wearing eyeglasses, missing multiple teeth NECK: Trach (+) secure to Vent CHEST: Rise symmetrical without dyspnea ABDOMEN: Soft EXTREMITIES: Moves all extremities, Without cyanosis. SKIN: See photos -- Hip + large decub sacral unstageable Results Result Diagram: 02/10/17 0429 02/11/17 0450 Results 24 hrs Laboratory Tests Test 02/11/17 04:50 02/11/17 05:00 02/11/17 06:19 02/11/17 06:44 Sodium Level 123 L Potassium Level 4.0 Chloride Level 87 L Carbon Dioxide Level 25 Anion Gap 15 Blood Urea Nitrogen 31 H Creatinine 1.06 H Glucose Level 39 #*L Lactic Acid Level 2.5 *H Calcium Level 12.1 H Total Bilirubin 0.1 L Direct Bilirubin 0.00 Indirect Bilirubin 0.1 Aspartate Amino Transf (AST/SGOT) 41 Alanine Aminotransferase (ALT/SGPT) 29 Alkaline Phosphatase 410 H Total Protein 6.9 Albumin 2.4 L Globulin 4.50 H Albumin/Globulin Ratio 0.53 Blood Gas Specimen Source Blood arterial Arterial Blood Date Drawn 02/11/2017 5:01:08 AM Arterial Blood pH (Temp corrected) 7.464 H Arterial Blood pCO2 (Temp correct) 31.6 L Arterial Blood pO2 (Temp corrected) 61.6 L Arterial Blood HCO3 22.2 Arterial Blood Base Excess -1.0 Arterial Blood Oxygen Saturation 92.2 L Nader Test ACCEPTAB Arterial Blood Gas Puncture Site Right Radial Arterial Blood Carboxyhemoglobin 0 Arterial Blood Methemoglobin 0.3 Blood Gas A-a O2 Differential 151.2 H Oxyhemoglobin Percent 91.9 L Total Hemoglobin 10.5 L Blood Gas Temperature 37.0 Blood Gas Respiration Rate 14.0 Blood Gas Actual Respiration Rate 36 Blood Gas Modality VENT - AC FiO2 35.0 Blood Gas Tidal Volume 450.0 Blood Gas Low PEEP Setting 5.0 Blood Gas Notified Whom MM Blood Gas Notified Time 02/11/2017 5:07:26 AM Bedside Glucose 35 *L 101 Medications Medications Current Medications Ondansetron HCl (Zofran Inj) 4 mg Q6H PRN IV NAUSEA AND/OR VOMITING Last administered on 02/05/17 09:36; Admin Dose 4 MG; Start 02/01/17 at 22:30 Acetaminophen (Tylenol Tab) 650 mg Q6H PRN PO PAIN LEVEL 1-3 OR FEVER Last administered on 02/04/17 21:08; Admin Dose 650 MG; Start 02/01/17 at 22:30 Acetaminophen/ Hydrocodone Bitart ([place] (5/325)) 1 tab Q6H PRN PO MODERATE PAIN LEVEL 4-6 Last administered on 02/04/17 21:07; Admin Dose 1 TAB; Start at 22:30 Hydromorphone HCl (Dilaudid) 0.5 mg Q4H PRN IV SEVERE PAIN LEVEL 7-10 Last administered on 02/09/17 10:41; Admin Dose 0.5 MG; Start 02/01/17 at 22:30 Docusate Sodium (Colace) 100 mg Q12H PRN PO CONSTIPATION; Start 02/01/17 at 22: 30 Magnesium Hydroxide (Milk Of Mag) 30 ml DAILY PRN PO CONSTIPATION; Start at 22:30 Bisacodyl (Dulcolax) 5 mg DAILY PRN PO CONSTIPATION; Start 02/01/17 at 22:30 Zolpidem Tartrate (Ambien) 5 mg QHS PRN PO SLEEP; Start 02/01/17 at 22:30 Lansoprazole (Prevacid) 30 mg DAILY@06 GTB Last administered on 02/09/17 06:08 ; Admin Dose 30 MG; Start 02/02/17 at 06:00 Enoxaparin Sodium (Lovenox) 40 mg DAILY SC Last administered on 02/11/17 09:37 ; Admin Dose 40 MG; Start 02/02/17 at 09:00 Ascorbic Acid (Vitamin C) 500 mg BID GTB Last administered on 02/09/17 20:51; Admin Dose 500 MG; Start 02/02/17 at 09:00 Diazepam (Valium) 5 mg DAILY PRN GTB ANXIETY Last administered on 02/08/17 20: 27; Admin Dose 5 MG; Start 02/01/17 at 22:30 Duloxetine HCl (Cymbalta) 20 mg DAILY GTB Last administered on 02/09/17 09:34 ; Admin Dose 20 MG; Start 02/02/17 at 09:00 Multivitamins Therapeutic (Theragran) 1 tab DAILY GTB Last administered on 02/09 09:34; Admin Dose 1 TAB; Start 02/02/17 at 09:00 Zinc Sulfate (Zinc Sulfate) 220 mg DAILY GTB Last administered on 02/09/17 09: 34; Admin Dose 220 MG; Start 02/02/17 at 09:00 Lactobacillus Acidophilus (Florajen3 Capsule) 1 each TID NGT Last administered on 02/09/17 20:51; Admin Dose 1 EACH; Start 02/02/17 at 09:00 Lactulose (Enulose) 20 gm BID PO Last administered on 02/09/17 20:51; Admin Dose 20 GM; Start 02/02/17 at 09:00 Collagenase (Santyl) 1 applic DAILY TOP Last administered on 02/11/17 09:40; Admin Dose 1 APPLIC; Start 02/02/17 at 09:00 Collagenase 1 applic 1 applic PRN PRN TOP PRN; Start 02/02/17 at 04:00 Linezolid 300 ml @ 300 mls/hr Q12 IVPB Last administered on 02/11/17 09:36; Admin Dose 300 MLS/HR; Start 02/09/17 at 15:00 Metronidazole 100 ml @ 100 mls/hr Q8 IVPB Last administered on 02/11/17 15:09 ; Admin Dose 100 MLS/HR; Start 02/09/17 at 14:00 Norepinephrine 16 mg/Dextrose 500 ml @ 0 mls/hr TITRATE IV Last administered on 02/11/17 13:53; Admin Dose 43.12 MLS/HR; Start 02/10/17 at 17:30 Colistimethate Sodium/Sodium Chloride (Coly-Mycin/NS) 100 ml @ 200 mls/hr Q12H IVPB Last administered on 02/11/17 17:08; Admin Dose 200 MLS/HR; Start at 04:00 Sodium Hypochlorite (Dakin'S (1/4 Strength)) 1 applic DAILY IRR Last administered on 02/11/17 05:00; Admin Dose 1 APPLIC; Start 02/10/17 at 13:30 IV Flush 10 ml 10 ml PRN PRN IV FLUSH LINE; Start 02/10/17 at 15:30 Sodium Chloride/ Dextrose (Nacl/D10w) 1,019.25 ml @ 75 mls/hr [id number] IV Last administered on 02/11/17 09:36; Admin Dose 75 MLS/HR; Start 02/11/17 at 08:00 Mupirocin (Bactroban) 1 applic BID TOP Last administered on 02/11/17 15:09; Admin Dose 1 APPLIC; Start 02/11/17 at 14:00 DYLLAN CARRION MD Feb 11, 2017 21:04
[2017-02-12] VITALS (92 sets, daily range): BP systolic 63–141; BP diastolic 43–106; PULSE 70–101; RESP 19–32
[2017-02-12] MEDS: ALBUTEROL 18 GM INHALER INH SCH ×4 (01:13→19:06)
[2017-02-12] MEDS: IPRATROPIUM (HFA) 12.9 GM INHALER INH SCH ×4 (01:13→19:06)
[2017-02-12] MEDS: SODIUM CHLORIDE 23.4% 77 MEQ in DEXTROSE 10% 1,000 ML IV SCH ×2 (02:32→16:29)
[2017-02-12] MEDS: COLISTIMETHATE 100 MG in SOD CHLORIDE 0.9% 100 ML IVPB SCH ×2 (04:14→16:28)
[2017-02-12] MEDS: LANSOPRAZOLE 30 MG CAP GTB SCH (05:30)
[2017-02-12] MEDS: metroNIDAZOLE 500 MG/NS (PMX) 100 ML IVPB SCH ×3 (05:31→21:52)
[2017-02-12 06:34] LABS: BASOPHILS % 0.2 % (0.0-2.0); EOSINOPHILS # 0.7 10^3/ul (0.0-0.5); EOSINOPHILS % 3.4 % (0.0-7.0); HEMATOCRIT 25.6 % (37.0-47.0); LYMPHOCYTES # 1.2 10^3/ul (0.8-2.9); MEAN CORPUSCULAR HEMOGLOBIN 26.4 pg (29.0-33.0); MEAN CORPUSCULAR HGB CONC 31.3 g/dl (32.0-37.0); MEAN CORPUSCULAR VOLUME 84.5 fl (82.0-101.0); MEAN PLATELET VOLUME 8.8 fl (7.4-10.4); MONOCYTE # 0.7 10^3/ul (0.3-0.9); MONOCYTES % 3.7 % (0.0-11.0); NEUTROPHILS % 84.8 % (39.0-77.0); PLATELET COUNT 453 10^3/UL (140-415); RED BLOOD COUNT 3.03 10^6/ul (4.20-5.40); RED CELL DISTRIBUTION WIDTH 16.9 % (11.5-14.5); WHITE BLOOD COUNT 19.5 10^3/ul (4.8-10.8)
[2017-02-12 06:52] LABS: POSITIVE DIFF @See below
[2017-02-12 07:19] LABS: CREATININE 1.05 mg/dl (0.44-1.00); POTASSIUM 3.2 mmol/L (3.5-5.1)
[2017-02-12] MEDS: LACTULOSE 30ML CUP PO SCH ×2 (09:00→20:36)
[2017-02-12] MEDS: SODIUM HYPOCHLORITE 0.125% 473 ML BTL IRR SCH (09:00)
[2017-02-12] MEDS: MULTIVITAMINS THERAPEUTIC TAB GTB SCH (09:00)
[2017-02-12] MEDS: ZINC SULFATE 220 MG CAP GTB SCH (09:00)
[2017-02-12] MEDS: DULOXETINE 20 MG CAP DR GTB SCH (09:00)
[2017-02-12] MEDS: L ACIDOPHIL/B LACTIS/B LONGUM CAPSULE NGT SCH ×3 (09:00→20:36)
[2017-02-12] MEDS: ASCORBIC ACID 500 MG TAB GTB SCH ×2 (09:00→20:36)
[2017-02-12] MEDS: COLLAGENASE 30 GM TUBE TOP SCH (09:00)
--- NOTE | 2017-02-12 09:13 | PN ---
Date/Time of Note Date/Time of Note DATE: 02/12/17 TIME: 09:06 Assessment/Plan Lines/Catheters IV Catheter Type (from Nrs): PICC Line George in Place (from Nrs): Yes Assessment/Plan Chief Complaint/Hosp Course 1. Multiple decubitus ulcers with debris -Offload -Optimize nutrition -Vitamin C -Local care with dakins -Debridement sacrococcyx prn when patient medically stable 2. Normocytic anemia: chronic disease vs. acute bleed; no rogerio bleed noted: s/ p PRBC transfusion -monitor -transfuse as needed - per heme/onc 3. Sepsis with hypotension and hypoglycemia: UTI +/- Bacteremia +/- PNA + wounds : on pressors -supportive -abx per sensitivities -pulmonary toilette -optimize blood sugar 4. Acute on chronic diastolic heart failure -Judicious fluid management -Cardiac optimization 5. Chronic urinary retention with George 6. Hypoalbuminemia: inflammation/infection +/- malnutrition -as above -nutrition optimization 7. Depression. -Medical management 8. Hypothyroidism by history; TSH elevated -Synthroid 9. . 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 Chronic pain syndrome. Continue pain management. 11. UTI: -abx per sensitivity/ID 12. Leukocytosis: 2/2 bacteremia, uti, wounds -abx per sensitivity -supportive 13. Abdominal distention: possible ileus vs. obstruction; pt with ng tube for decompression, no BM currently -close monitoring 14. Severe hyponatremia: hypovolemic -per renal -judicious fluids Patient seen and examined in collaboration with Dr. Christian Sinclair. Thank you. Problems: Subjective 24 Hr Interval Summary Sleepy, opens eyes. Min discomfort. Continues on pressors, NGT to suction with large amount of bilious output. No fevers, chills, sob, congested cough, n/v/d/ dysuria, excessive wound drainage. No bowel function. Exam/Review of Systems Vital Signs Vitals Vital Signs Date Time Temp Pulse Resp B/P Pulse Ox O2 Delivery O2 Flow Rate FiO2 02/12/17 07:50 74 21 100 45 02/12/17 06:30 105/62 02/12/17 06:15 Mechanical Ventilator 02/12/17 04:30 98.0 Intake and Output 02/11/17 02/11/17 02/12/17 15:00 23:00 07:00 Intake Total 1353 ml 1369.60 ml 1132.48 ml Output Total 275 ml 1455 ml 750 ml Balance 1078 ml -85.40 ml 382.48 ml Exam Free Text/Dictation Constitutional: somnolent awakens easily, (trached), oriented, No distress Psych: flat Head: atraumatic, normocephalic Eyes: nl conjunctiva, nl lids, nl sclera ENMT: mucosa pink and moist, nl external ears & nose, nl lips & teeth; ng tube with large bilious drainage Neck: non-tender, other (tracheostomy, non-reddened, no drainage noted), supple Respiratory: normal effort, no wheezing Cardiovascular: nl pulses, regular rate and rhythm Gastrointestinal: non-tender, other (gtube, site non-tender, non-reddened), distention, soft Musculoskeletal: nl extremities to inspection Extremities: normal pulses, extremity Edema +2 Neurological: nl mental status, No nl strength (gen weakness) Skin: No rash; wounds (sacral wound with min/mod dry drainage) Results Result Diagram: 02/12/17 0500 02/12/17 0500 JERRY SAHU NP Feb 12, 2017 09:12
[2017-02-12] MEDS: MUPIROCIN 2% 22 GM OINT TOP SCH ×2 (09:14→20:37)
[2017-02-12] MEDS: ENOXAPARIN 40 MG/0.4 ML SYG SC SCH (09:15)
[2017-02-12] MEDS: LINEZOLID 600 MG/D5W (PMX) 300 ML IVPB SCH ×2 (10:24→20:37)
--- NOTE | 2017-02-12 10:24 | CONS ---
Date/Time of Note Date/Time of Note DATE: 02/12/17 TIME: 10:22 Assessment/Plan Assessment/Plan Additional Assessment/Plan Ventilator setting; AC of 14, tidal volume 450, PEEP of 5, 45% FiO2. Assessment and recommendations; 1. Patient with history of chronic respiratory failure which is ventilator dependent admitted for recurrent sepsis from severe decubitus wounds involving the sacrum. Status post debridement. 2. COPD. 3. Likely left lower lobe lung malignancy, patient has been too unstable to undergo any kind of workup. 4. Anemia. 5. Severe generalized deconditioning. Continue current supportive care. Prognosis is poor. Consultation Date/Type/Reason Admit Date/Time Feb 01, 2017 at 15:50 Initial Consult Date 02/09/17 Type of Consultation: Pulmonary/critical care Referring Provider: DRE LOBATO MD 24 HR Interval Summary Free Text/Dictation Patient's condition is unstable. Still requiring high-dose Levophed for blood pressure maintenance. Remains lethargic. Remains chronically ventilator dependent. General exam; elderly woman, on ventilator via tracheostomy, currently not much responsive. Patient in no distress. Exam/Review of Systems Vital Signs Vitals Vital Signs Date Time Temp Pulse Resp B/P Pulse Ox O2 Delivery O2 Flow Rate FiO2 02/12/17 09:50 75 30 100 45 02/12/17 06:30 105/62 02/12/17 06:15 Mechanical Ventilator 02/12/17 04:30 98.0 Intake and Output 02/11/17 02/11/17 02/12/17 15:00 23:00 07:00 Intake Total 1353 ml 1369.60 ml 1132.48 ml Output Total 275 ml 1455 ml 750 ml Balance 1078 ml -85.40 ml 382.48 ml Exam HEENT exam; supple neck, no JVD. No lymphadenopathy. Midline trachea. No thyromegaly. Tracheostomy in place. Patient has multiple carious teeth. Chest exam; diminished but clear breath sounds. S1-S2 audible, no murmurs. Regular rhythm. Abdomen exam; soft, nondistended. G-tube in place. Bowel sounds audible. Back examination; dressing applied over sacrum. Extremity exam; no peripheral edema. Patient has severe muscle loss involving the entire body. [employer] SAL[employer] exam; patient is lethargic. Results Result Diagram: 02/12/17 0500 02/12/17 0500 Results 24 hrs Laboratory Tests Test 02/12/17 05:00 White Blood Count 19.5 #H Red Blood Count 3.03 #L Hemoglobin 8.0 #L Hematocrit 25.6 #L Mean Corpuscular Volume 84.5 Mean Corpuscular Hemoglobin 26.4 L Mean Corpuscular Hemoglobin Concent 31.3 L Red Cell Distribution Width 16.9 H Platelet Count 453 H Mean Platelet Volume 8.8 Neutrophils % 84.8 H Lymphocytes % 6.0 L Monocytes % 3.7 Eosinophils % 3.4 Basophils % 0.2 Nucleated Red Blood Cells % 0.0 Neutrophils # (Manual) 16.6 H Lymphocytes # 1.2 Monocytes # 0.7 Eosinophils # 0.7 H Basophils # 0.0 Nucleated Red Blood Cells # 0.0 Sodium Level 124 L Potassium Level 3.2 L Chloride Level 87 L Carbon Dioxide Level 22 Anion Gap 18 H Blood Urea Nitrogen 31 H Creatinine 1.05 H Glucose Level 98 # Calcium Level 12.0 H Medications Medications Current Medications Ondansetron HCl (Zofran Inj) 4 mg Q6H PRN IV NAUSEA AND/OR VOMITING Last administered on 02/05/17 09:36; Admin Dose 4 MG; Start 02/01/17 at 22:30 Acetaminophen (Tylenol Tab) 650 mg Q6H PRN PO PAIN LEVEL 1-3 OR FEVER Last administered on 02/04/17 21:08; Admin Dose 650 MG; Start 02/01/17 at 22:30 Acetaminophen/ Hydrocodone Bitart ([place] (5/325)) 1 tab Q6H PRN PO MODERATE PAIN LEVEL 4-6 Last administered on 02/04/17 21:07; Admin Dose 1 TAB; Start at 22:30 Hydromorphone HCl (Dilaudid) 0.5 mg Q4H PRN IV SEVERE PAIN LEVEL 7-10 Last administered on 02/09/17 10:41; Admin Dose 0.5 MG; Start 02/01/17 at 22:30 Docusate Sodium (Colace) 100 mg Q12H PRN PO CONSTIPATION; Start 02/01/17 at 22: 30 Magnesium Hydroxide (Milk Of Mag) 30 ml DAILY PRN PO CONSTIPATION; Start at 22:30 Bisacodyl (Dulcolax) 5 mg DAILY PRN PO CONSTIPATION; Start 02/01/17 at 22:30 Zolpidem Tartrate (Ambien) 5 mg QHS PRN PO SLEEP; Start 02/01/17 at 22:30 Lansoprazole (Prevacid) 30 mg DAILY@06 GTB Last administered on 02/09/17 06:08 ; Admin Dose 30 MG; Start 02/02/17 at 06:00 Enoxaparin Sodium (Lovenox) 40 mg DAILY SC Last administered on 02/12/17 09:15 ; Admin Dose 40 MG; Start 02/02/17 at 09:00 Ascorbic Acid (Vitamin C) 500 mg BID GTB Last administered on 02/09/17 20:51; Admin Dose 500 MG; Start 02/02/17 at 09:00 Diazepam (Valium) 5 mg DAILY PRN GTB ANXIETY Last administered on 02/08/17 20: 27; Admin Dose 5 MG; Start 02/01/17 at 22:30 Duloxetine HCl (Cymbalta) 20 mg DAILY GTB Last administered on 02/09/17 09:34 ; Admin Dose 20 MG; Start 02/02/17 at 09:00 Multivitamins Therapeutic (Theragran) 1 tab DAILY GTB Last administered on 02/09 09:34; Admin Dose 1 TAB; Start 02/02/17 at 09:00 Zinc Sulfate (Zinc Sulfate) 220 mg DAILY GTB Last administered on 02/09/17 09: 34; Admin Dose 220 MG; Start 02/02/17 at 09:00 Lactobacillus Acidophilus (Florajen3 Capsule) 1 each TID NGT Last administered on 02/09/17 20:51; Admin Dose 1 EACH; Start 02/02/17 at 09:00 Lactulose (Enulose) 20 gm BID PO Last administered on 02/09/17 20:51; Admin Dose 20 GM; Start 02/02/17 at 09:00 Collagenase (Santyl) 1 applic DAILY TOP Last administered on 02/11/17 09:40; Admin Dose 1 APPLIC; Start 02/02/17 at 09:00 Collagenase 1 applic 1 applic PRN PRN TOP PRN; Start 02/02/17 at 04:00 Linezolid 300 ml @ 300 mls/hr Q12 IVPB Last administered on 02/11/17 21:12; Admin Dose 300 MLS/HR; Start 02/09/17 at 15:00 Metronidazole 100 ml @ 100 mls/hr Q8 IVPB Last administered on 02/12/17 05:31 ; Admin Dose 100 MLS/HR; Start 02/09/17 at 14:00 Norepinephrine 16 mg/Dextrose 500 ml @ 0 mls/hr TITRATE IV Last administered on 02/12/17 02:35; Admin Dose 45 MLS/HR; Start 02/10/17 at 17:30 Colistimethate Sodium/Sodium Chloride (Coly-Mycin/NS) 100 ml @ 200 mls/hr Q12H IVPB Last administered on 02/12/17 04:14; Admin Dose 200 MLS/HR; Start at 04:00 Sodium Hypochlorite (Dakin'S (1/4 Strength)) 1 applic DAILY IRR Last administered on 02/11/17 05:00; Admin Dose 1 APPLIC; Start 02/10/17 at 13:30 IV Flush 10 ml 10 ml PRN PRN IV FLUSH LINE; Start 02/10/17 at 15:30 Sodium Chloride/ Dextrose (Nacl/D10w) 1,019.25 ml @ 75 mls/hr [id number] IV Last administered on 02/12/17 02:32; Admin Dose 75 MLS/HR; Start 02/11/17 at 08:00 Mupirocin 1 applic 1 applic BID TOP Last administered on 02/12/17 09:14; Admin Dose 1 APPLIC; Start 02/11/17 at 14:00 Potassium Chloride/Sodium Chloride (KCl/NS) 165 ml @ 55 mls/hr ONCE ONCE IVPB ; Start 02/12/17 at 10:30; Stop 02/12/17 at 13:29 REGINE BUCKLEY Feb 12, 2017 10:24
[2017-02-12] MEDS ORDERED: POTASSIUM CHLORIDE 30 MEQ in SOD CHLORIDE 0.9% 150 ML IVPB ONE (10:30)
[2017-02-12] MEDS ORDERED: SOD CHLORIDE 0.9% 1,000 ML IV SCH (10:30)
--- NOTE | 2017-02-12 13:14 | PN ---
Date/Time of Note Date/Time of Note DATE: 02/12/17 TIME: 13:11 Assessment/Plan VTE Prophylaxis VTE Prophylaxis Intervention: SCD's Lines/Catheters [facility] PICC Line Central line still needed: Yes Urinary Cath still in place: Yes Reason Cath still needed: urinary retention Assessment/Plan Chief Complaint/Hosp Course Patient's continues to be on Levophed for hemodynamic support, abdomen is distended tender, patient has large amount of gastric secretion from G-tube and NG tube per nursing Assessment/Plan -Small bowel obstruction versus ileus. Continue G-tube to low wall suctioning. Dr Gonzales is following in gastroenterology consultation. -Sepsis, most likely secondary to urinary tract infection and possible postobstructive pneumonia. Dr. Coleman is following infection disease consultation, follow-up on cultures, continue antibiotics per ID. -Hyponatremia, Dr. Zapata is following a nephrology consultation, continue IV fluids per renal. -Left lung squamous carcinoma -Anemia, check stool for OB, transfuse 1 unit of packed red blood cells, continue to monitor H&H. -Ventilator dependent respiratory failure with tracheostomy, continue breathing treatments. -COPD -Dysphagia with PEG -History of cardiopulmonary arrest -Multiple wounds present on admission, that is post debridement at last admission. -Chronic urinary retention with George catheter Further recommendations based on clinical course. Plan of care discussed with Dr. Dozier Problems: Exam/Review of Systems Vital Signs Vitals Vital Signs Date Time Temp Pulse Resp B/P Pulse Ox O2 Delivery O2 Flow Rate FiO2 02/12/17 12:00 35 02/12/17 12:00 80 02/12/17 11:54 31 100 02/12/17 10:30 98/62 Mechanical Ventilator 02/12/17 08:00 97.8 Intake and Output 02/11/17 02/11/17 02/12/17 15:00 23:00 07:00 Intake Total 1353 ml 1369.60 ml 1132.48 ml Output Total 275 ml 1455 ml 850 ml Balance 1078 ml -85.40 ml 282.48 ml Exam Constitutional: alert Neck: other Respiratory: diminished breath sounds (Urostomy) Cardiovascular: nl pulses Gastrointestinal: distended, other (G-tube), soft, tender Extremities: normal pulses Neurological: confused Skin: other (Multiple wounds) Results Result Diagram: 02/12/17 0500 02/12/17 0500 Results 24 hrs Laboratory Tests Test 02/12/17 05:00 White Blood Count 19.5 #H Red Blood Count 3.03 #L Hemoglobin 8.0 #L Hematocrit 25.6 #L Mean Corpuscular Volume 84.5 Mean Corpuscular Hemoglobin 26.4 L Mean Corpuscular Hemoglobin Concent 31.3 L Red Cell Distribution Width 16.9 H Platelet Count 453 H Mean Platelet Volume 8.8 Neutrophils % 84.8 H Lymphocytes % 6.0 L Monocytes % 3.7 Eosinophils % 3.4 Basophils % 0.2 Nucleated Red Blood Cells % 0.0 Neutrophils # (Manual) 16.6 H Lymphocytes # 1.2 Monocytes # 0.7 Eosinophils # 0.7 H Basophils # 0.0 Nucleated Red Blood Cells # 0.0 Sodium Level 124 L Potassium Level 3.2 L Chloride Level 87 L Carbon Dioxide Level 22 Anion Gap 18 H Blood Urea Nitrogen 31 H Creatinine 1.05 H Glucose Level 98 # Calcium Level 12.0 H Medications Medications Current Medications Ondansetron HCl (Zofran Inj) 4 mg Q6H PRN IV NAUSEA AND/OR VOMITING Last administered on 02/05/17 09:36; Admin Dose 4 MG; Start 02/01/17 at 22:30 Acetaminophen (Tylenol Tab) 650 mg Q6H PRN PO PAIN LEVEL 1-3 OR FEVER Last administered on 02/04/17 21:08; Admin Dose 650 MG; Start 02/01/17 at 22:30 Acetaminophen/ Hydrocodone Bitart ([place] (5/325)) 1 tab Q6H PRN PO MODERATE PAIN LEVEL 4-6 Last administered on 02/04/17 21:07; Admin Dose 1 TAB; Start at 22:30 Hydromorphone HCl (Dilaudid) 0.5 mg Q4H PRN IV SEVERE PAIN LEVEL 7-10 Last administered on 02/09/17 10:41; Admin Dose 0.5 MG; Start 02/01/17 at 22:30 Docusate Sodium (Colace) 100 mg Q12H PRN PO CONSTIPATION; Start 02/01/17 at 22: 30 Magnesium Hydroxide (Milk Of Mag) 30 ml DAILY PRN PO CONSTIPATION; Start at 22:30 Bisacodyl (Dulcolax) 5 mg DAILY PRN PO CONSTIPATION; Start 02/01/17 at 22:30 Zolpidem Tartrate (Ambien) 5 mg QHS PRN PO SLEEP; Start 02/01/17 at 22:30 Lansoprazole (Prevacid) 30 mg DAILY@06 GTB Last administered on 02/09/17 06:08 ; Admin Dose 30 MG; Start 02/02/17 at 06:00 Enoxaparin Sodium (Lovenox) 40 mg DAILY SC Last administered on 02/12/17 09:15 ; Admin Dose 40 MG; Start 02/02/17 at 09:00 Ascorbic Acid (Vitamin C) 500 mg BID GTB Last administered on 02/09/17 20:51; Admin Dose 500 MG; Start 02/02/17 at 09:00 Diazepam (Valium) 5 mg DAILY PRN GTB ANXIETY Last administered on 02/08/17 20: 27; Admin Dose 5 MG; Start 02/01/17 at 22:30 Duloxetine HCl (Cymbalta) 20 mg DAILY GTB Last administered on 02/09/17 09:34 ; Admin Dose 20 MG; Start 02/02/17 at 09:00 Multivitamins Therapeutic (Theragran) 1 tab DAILY GTB Last administered on 02/09 09:34; Admin Dose 1 TAB; Start 02/02/17 at 09:00 Zinc Sulfate (Zinc Sulfate) 220 mg DAILY GTB Last administered on 02/09/17 09: 34; Admin Dose 220 MG; Start 02/02/17 at 09:00 Lactobacillus Acidophilus (Florajen3 Capsule) 1 each TID NGT Last administered on 02/09/17 20:51; Admin Dose 1 EACH; Start 02/02/17 at 09:00 Lactulose (Enulose) 20 gm BID PO Last administered on 02/09/17 20:51; Admin Dose 20 GM; Start 02/02/17 at 09:00 Collagenase (Santyl) 1 applic DAILY TOP Last administered on 02/12/17 09:00; Admin Dose 1 APPLIC; Start 02/02/17 at 09:00 Collagenase 1 applic 1 applic PRN PRN TOP PRN; Start 02/02/17 at 04:00 Linezolid 300 ml @ 300 mls/hr Q12 IVPB Last administered on 02/12/17 10:24; Admin Dose 300 MLS/HR; Start 02/09/17 at 15:00 Metronidazole 100 ml @ 100 mls/hr Q8 IVPB Last administered on 02/12/17 05:31 ; Admin Dose 100 MLS/HR; Start 02/09/17 at 14:00 Norepinephrine 16 mg/Dextrose 500 ml @ 0 mls/hr TITRATE IV Last administered on 02/12/17 02:35; Admin Dose 45 MLS/HR; Start 02/10/17 at 17:30 Colistimethate Sodium/Sodium Chloride (Coly-Mycin/NS) 100 ml @ 200 mls/hr Q12H IVPB Last administered on 02/12/17 04:14; Admin Dose 200 MLS/HR; Start at 04:00 Sodium Hypochlorite (Dakin'S (1/4 Strength)) 1 applic DAILY IRR Last administered on 02/11/17 05:00; Admin Dose 1 APPLIC; Start 02/10/17 at 13:30 IV Flush 10 ml 10 ml PRN PRN IV FLUSH LINE; Start 02/10/17 at 15:30 Sodium Chloride/ Dextrose (Nacl/D10w) 1,019.25 ml @ 75 mls/hr [id number] IV Last administered on 02/12/17 02:32; Admin Dose 75 MLS/HR; Start 02/11/17 at 08:00 Mupirocin 1 applic 1 applic BID TOP Last administered on 02/12/17 09:14; Admin Dose 1 APPLIC; Start 02/11/17 at 14:00 Potassium Chloride 30 meq/ Sodium Chloride 165 ml @ 55 mls/hr ONCE ONCE IVPB Last administered on 02/12/17 10:24; Admin Dose 55 MLS/HR; Start 02/12/17 at 10 :30; Stop 02/12/17 at 13:29 Sodium Chloride (NS) 1,000 ml @ 75 mls/hr [id number] IV ; Start 02/12/17 at 10:30 REBECCA ISLAS Feb 12, 2017 13:14
--- NOTE | 2017-02-12 14:08 | CONS ---
Date/Time of Note Date/Time of Note DATE: 02/12/17 TIME: 14:07 Assessment/Plan Assessment/Plan Chief Complaint/Hosp Course -Anemia, stool for OB - P post 2 unit of packed red blood cells, continue to monitor H&H. -Left lung squamous carcinoma supportive care no aggressive treatment planned -Sepsis, most likely secondary to urinary tract infection and possible postobstructive pneumonia. Dr. Coleman is following infection disease consultation, follow-up on cultures, continue antibiotics per ID. -Hyponatremia, nephrology f-up, continue IV fluids per renal. -Ventilator dependent respiratory failure with tracheostomy, continue breathing treatments. -COPD -Dysphagia with PEG -History of cardiopulmonary arrest -Multiple wounds present on admission, that is post debridement at last admission. -Hypothyroidism -Chronic urinary retention with George catheter Problems: Consultation Date/Type/Reason Admit Date/Time Feb 01, 2017 at 15:50 Initial Consult Date 02/08/17 [facility] Referring Provider: DRE LOBATO MD 24 HR Interval Summary Free Text/Dictation Patient's condition is unstable. Still requiring high-dose Levophed for blood pressure maintenance. Remains lethargic. Remains chronically ventilator dependent. Exam/Review of Systems Vital Signs Vitals Vital Signs Date Time Temp Pulse Resp B/P Pulse Ox O2 Delivery O2 Flow Rate FiO2 02/12/17 12:00 35 02/12/17 12:00 80 02/12/17 11:54 31 100 02/12/17 10:30 98/62 Mechanical Ventilator 02/12/17 08:00 97.8 Intake and Output 02/11/17 02/11/17 02/12/17 14:59 22:59 06:59 Intake Total 1235 ml 1444.48 ml 1175.60 ml Output Total 175 ml 1385 ml 920 ml Balance 1060 ml 59.48 ml 255.60 ml Exam Exam GENERAL: Chronically ill-appearing, frail 66 yo F HEENT: Unremarkable except wearing eyeglasses, missing multiple teeth NECK: Trach (+) secure to Vent CHEST: Rise symmetrical without dyspnea ABDOMEN: Soft EXTREMITIES: Moves all extremities, Without cyanosis. SKIN: See photos -- Hip + large decub sacral unstageable Results Result Diagram: 02/12/17 0500 02/12/17 0500 Results 24 hrs Laboratory Tests Test 02/12/17 05:00 White Blood Count 19.5 #H Red Blood Count 3.03 #L Hemoglobin 8.0 #L Hematocrit 25.6 #L Mean Corpuscular Volume 84.5 Mean Corpuscular Hemoglobin 26.4 L Mean Corpuscular Hemoglobin Concent 31.3 L Red Cell Distribution Width 16.9 H Platelet Count 453 H Mean Platelet Volume 8.8 Neutrophils % 84.8 H Lymphocytes % 6.0 L Monocytes % 3.7 Eosinophils % 3.4 Basophils % 0.2 Nucleated Red Blood Cells % 0.0 Neutrophils # (Manual) 16.6 H Lymphocytes # 1.2 Monocytes # 0.7 Eosinophils # 0.7 H Basophils # 0.0 Nucleated Red Blood Cells # 0.0 Sodium Level 124 L Potassium Level 3.2 L Chloride Level 87 L Carbon Dioxide Level 22 Anion Gap 18 H Blood Urea Nitrogen 31 H Creatinine 1.05 H Glucose Level 98 # Calcium Level 12.0 H Medications Medications Current Medications Ondansetron HCl (Zofran Inj) 4 mg Q6H PRN IV NAUSEA AND/OR VOMITING Last administered on 02/05/17 09:36; Admin Dose 4 MG; Start 02/01/17 at 22:30 Acetaminophen (Tylenol Tab) 650 mg Q6H PRN PO PAIN LEVEL 1-3 OR FEVER Last administered on 02/04/17 21:08; Admin Dose 650 MG; Start 02/01/17 at 22:30 Acetaminophen/ Hydrocodone Bitart ([place] (5/325)) 1 tab Q6H PRN PO MODERATE PAIN LEVEL 4-6 Last administered on 02/04/17 21:07; Admin Dose 1 TAB; Start at 22:30 Hydromorphone HCl (Dilaudid) 0.5 mg Q4H PRN IV SEVERE PAIN LEVEL 7-10 Last administered on 02/09/17 10:41; Admin Dose 0.5 MG; Start 02/01/17 at 22:30 Docusate Sodium (Colace) 100 mg Q12H PRN PO CONSTIPATION; Start 02/01/17 at 22: 30 Magnesium Hydroxide (Milk Of Mag) 30 ml DAILY PRN PO CONSTIPATION; Start at 22:30 Bisacodyl (Dulcolax) 5 mg DAILY PRN PO CONSTIPATION; Start 02/01/17 at 22:30 Zolpidem Tartrate (Ambien) 5 mg QHS PRN PO SLEEP; Start 02/01/17 at 22:30 Lansoprazole (Prevacid) 30 mg DAILY@06 GTB Last administered on 02/09/17 06:08 ; Admin Dose 30 MG; Start 02/02/17 at 06:00 Enoxaparin Sodium (Lovenox) 40 mg DAILY SC Last administered on 02/12/17 09:15 ; Admin Dose 40 MG; Start 02/02/17 at 09:00 Ascorbic Acid (Vitamin C) 500 mg BID GTB Last administered on 02/09/17 20:51; Admin Dose 500 MG; Start 02/02/17 at 09:00 Diazepam (Valium) 5 mg DAILY PRN GTB ANXIETY Last administered on 02/08/17 20: 27; Admin Dose 5 MG; Start 02/01/17 at 22:30 Duloxetine HCl (Cymbalta) 20 mg DAILY GTB Last administered on 02/09/17 09:34 ; Admin Dose 20 MG; Start 02/02/17 at 09:00 Multivitamins Therapeutic (Theragran) 1 tab DAILY GTB Last administered on 02/09 09:34; Admin Dose 1 TAB; Start 02/02/17 at 09:00 Zinc Sulfate (Zinc Sulfate) 220 mg DAILY GTB Last administered on 02/09/17 09: 34; Admin Dose 220 MG; Start 02/02/17 at 09:00 Lactobacillus Acidophilus (Florajen3 Capsule) 1 each TID NGT Last administered on 02/09/17 20:51; Admin Dose 1 EACH; Start 02/02/17 at 09:00 Lactulose (Enulose) 20 gm BID PO Last administered on 02/09/17 20:51; Admin Dose 20 GM; Start 02/02/17 at 09:00 Collagenase (Santyl) 1 applic DAILY TOP Last administered on 02/12/17 09:00; Admin Dose 1 APPLIC; Start 02/02/17 at 09:00 Collagenase 1 applic 1 applic PRN PRN TOP PRN; Start 02/02/17 at 04:00 Linezolid 300 ml @ 300 mls/hr Q12 IVPB Last administered on 02/12/17 10:24; Admin Dose 300 MLS/HR; Start 02/09/17 at 15:00 Metronidazole 100 ml @ 100 mls/hr Q8 IVPB Last administered on 02/12/17 13:51 ; Admin Dose 100 MLS/HR; Start 02/09/17 at 14:00 Norepinephrine 16 mg/Dextrose 500 ml @ 0 mls/hr TITRATE IV Last administered on 02/12/17 02:35; Admin Dose 45 MLS/HR; Start 02/10/17 at 17:30 Colistimethate Sodium/Sodium Chloride (Coly-Mycin/NS) 100 ml @ 200 mls/hr Q12H IVPB Last administered on 02/12/17 04:14; Admin Dose 200 MLS/HR; Start at 04:00 Sodium Hypochlorite (Dakin'S (1/4 Strength)) 1 applic DAILY IRR Last administered on 02/11/17 05:00; Admin Dose 1 APPLIC; Start 02/10/17 at 13:30 IV Flush 10 ml 10 ml PRN PRN IV FLUSH LINE; Start 02/10/17 at 15:30 Sodium Chloride/ Dextrose (Nacl/D10w) 1,019.25 ml @ 75 mls/hr [id number] IV Last administered on 02/12/17 02:32; Admin Dose 75 MLS/HR; Start 02/11/17 at 08:00 Mupirocin 1 applic 1 applic BID TOP Last administered on 02/12/17 09:14; Admin Dose 1 APPLIC; Start 02/11/17 at 14:00 Sodium Chloride (NS) 1,000 ml @ 75 mls/hr [id number] IV Last administered on 02/12 13:52; Admin Dose 75 MLS/HR; Start 02/12/17 at 10:30 DYLLAN CARRION MD Feb 12, 2017 14:08
[2017-02-12] MEDS: HYDROmorphONE 1 MG/ML SYG IV PRN (14:38)
--- NOTE | 2017-02-12 17:46 | CONS ---
Date/Time of Note Date/Time of Note DATE: 02/12/17 TIME: 17:44 Assessment/Plan Assessment/Plan Additional Assessment/Plan 1. 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 septic shock on levophed 3. Recurrent Multidrug Resistant Urinary tract infection 4. Sacral wound 5. Chronic resp failure 6.S/P Tracheostomy, S/p PEG tube placement 7. Lung CA- Squamous Cell CA Plan: Continue current IV abx , ID following, renally dos abx NG tube on suction S/p 3 % saline on02/09/17- still Na 124-conitnue IVF D10 with NaCl 23% at current rate Pain control ID following will conitnue to follow up on patient, if Na continues to drop then we will consider Tolvaptan or 3 % saline by tomorrow- Currently he is not tolerating G tube so we can give Oral meds tolvaptan- Consultation Date/Type/Reason Admit Date/Time Feb 01, 2017 at 15:50 Initial Consult Date 02/08/17 Type of Consultation: NEPHROLOGY Referring Provider: DRE LOBATO MD 24 HR Interval Summary Free Text/Dictation Oncology has been consulted on the case, BP stable Exam/Review of Systems Vital Signs Vitals Vital Signs Date Time Temp Pulse Resp B/P Pulse Ox O2 Delivery O2 Flow Rate FiO2 02/12/17 17:15 85 24 105/67 100 Mechanical Ventilator 02/12/17 15:00 45 02/12/17 12:00 97.7 Intake and Output 02/11/17 02/11/17 02/12/17 15:00 23:00 07:00 Intake Total 1353 ml 1369.60 ml 1350.60 ml Output Total 275 ml 1455 ml 850 ml Balance 1078 ml -85.40 ml 500.60 ml Results Result Diagram: 02/12/17 0500 02/12/17 0500 Results 24 hrs Laboratory Tests Test 02/12/17 05:00 White Blood Count 19.5 #H Red Blood Count 3.03 #L Hemoglobin 8.0 #L Hematocrit 25.6 #L Mean Corpuscular Volume 84.5 Mean Corpuscular Hemoglobin 26.4 L Mean Corpuscular Hemoglobin Concent 31.3 L Red Cell Distribution Width 16.9 H Platelet Count 453 H Mean Platelet Volume 8.8 Neutrophils % 84.8 H Lymphocytes % 6.0 L Monocytes % 3.7 Eosinophils % 3.4 Basophils % 0.2 Nucleated Red Blood Cells % 0.0 Neutrophils # (Manual) 16.6 H Lymphocytes # 1.2 Monocytes # 0.7 Eosinophils # 0.7 H Basophils # 0.0 Nucleated Red Blood Cells # 0.0 Sodium Level 124 L Potassium Level 3.2 L Chloride Level 87 L Carbon Dioxide Level 22 Anion Gap 18 H Blood Urea Nitrogen 31 H Creatinine 1.05 H Glucose Level 98 # Calcium Level 12.0 H Medications Medications Current Medications Ondansetron HCl (Zofran Inj) 4 mg Q6H PRN IV NAUSEA AND/OR VOMITING Last administered on 02/05/17 09:36; Admin Dose 4 MG; Start 02/01/17 at 22:30 Acetaminophen (Tylenol Tab) 650 mg Q6H PRN PO PAIN LEVEL 1-3 OR FEVER Last administered on 02/04/17 21:08; Admin Dose 650 MG; Start 02/01/17 at 22:30 Acetaminophen/ Hydrocodone Bitart ([place] (5/325)) 1 tab Q6H PRN PO MODERATE PAIN LEVEL 4-6 Last administered on 02/04/17 21:07; Admin Dose 1 TAB; Start at 22:30 Hydromorphone HCl (Dilaudid) 0.5 mg Q4H PRN IV SEVERE PAIN LEVEL 7-10 Last administered on 02/12/17 14:38; Admin Dose 0.5 MG; Start 02/01/17 at 22:30 Docusate Sodium (Colace) 100 mg Q12H PRN PO CONSTIPATION; Start 02/01/17 at 22: 30 Magnesium Hydroxide (Milk Of Mag) 30 ml DAILY PRN PO CONSTIPATION; Start at 22:30 Bisacodyl (Dulcolax) 5 mg DAILY PRN PO CONSTIPATION; Start 02/01/17 at 22:30 Zolpidem Tartrate (Ambien) 5 mg QHS PRN PO SLEEP; Start 02/01/17 at 22:30 Lansoprazole (Prevacid) 30 mg DAILY@06 GTB Last administered on 02/09/17 06:08 ; Admin Dose 30 MG; Start 02/02/17 at 06:00 Enoxaparin Sodium (Lovenox) 40 mg DAILY SC Last administered on 02/12/17 09:15 ; Admin Dose 40 MG; Start 02/02/17 at 09:00 Ascorbic Acid (Vitamin C) 500 mg BID GTB Last administered on 02/09/17 20:51; Admin Dose 500 MG; Start 02/02/17 at 09:00 Diazepam (Valium) 5 mg DAILY PRN GTB ANXIETY Last administered on 02/08/17 20: 27; Admin Dose 5 MG; Start 02/01/17 at 22:30 Duloxetine HCl (Cymbalta) 20 mg DAILY GTB Last administered on 02/09/17 09:34 ; Admin Dose 20 MG; Start 02/02/17 at 09:00 Multivitamins Therapeutic (Theragran) 1 tab DAILY GTB Last administered on 02/09 09:34; Admin Dose 1 TAB; Start 02/02/17 at 09:00 Zinc Sulfate (Zinc Sulfate) 220 mg DAILY GTB Last administered on 02/09/17 09: 34; Admin Dose 220 MG; Start 02/02/17 at 09:00 Lactobacillus Acidophilus (Florajen3 Capsule) 1 each TID NGT Last administered on 02/09/17 20:51; Admin Dose 1 EACH; Start 02/02/17 at 09:00 Lactulose (Enulose) 20 gm BID PO Last administered on 02/09/17 20:51; Admin Dose 20 GM; Start 02/02/17 at 09:00 Collagenase (Santyl) 1 applic DAILY TOP Last administered on 02/12/17 09:00; Admin Dose 1 APPLIC; Start 02/02/17 at 09:00 Collagenase 1 applic 1 applic PRN PRN TOP PRN; Start 02/02/17 at 04:00 Linezolid 300 ml @ 300 mls/hr Q12 IVPB Last administered on 02/12/17 10:24; Admin Dose 300 MLS/HR; Start 02/09/17 at 15:00 Metronidazole 100 ml @ 100 mls/hr Q8 IVPB Last administered on 02/12/17 13:51 ; Admin Dose 100 MLS/HR; Start 02/09/17 at 14:00 Norepinephrine 16 mg/Dextrose 500 ml @ 0 mls/hr TITRATE IV Last administered on 02/12/17 15:15; Admin Dose 43.12 MLS/HR; Start 02/10/17 at 17:30 Colistimethate Sodium/Sodium Chloride (Coly-Mycin/NS) 100 ml @ 200 mls/hr Q12H IVPB Last administered on 02/12/17 16:28; Admin Dose 200 MLS/HR; Start at 04:00 Sodium Hypochlorite (Dakin'S (1/4 Strength)) 1 applic DAILY IRR Last administered on 02/11/17 05:00; Admin Dose 1 APPLIC; Start 02/10/17 at 13:30 IV Flush 10 ml 10 ml PRN PRN IV FLUSH LINE; Start 02/10/17 at 15:30 Sodium Chloride/ Dextrose (Nacl/D10w) 1,019.25 ml @ 75 mls/hr [id number] IV Last administered on 02/12/17 16:29; Admin Dose 75 MLS/HR; Start 02/11/17 at 08:00 Mupirocin 1 applic 1 applic BID TOP Last administered on 02/12/17 09:14; Admin Dose 1 APPLIC; Start 02/11/17 at 14:00 Sodium Chloride (NS) 1,000 ml @ 75 mls/hr [id number] IV Last administered on 02/12 13:52; Admin Dose 75 MLS/HR; Start 02/12/17 at 10:30 DIONNE SAUCEDA MD Feb 12, 2017 17:46
[2017-02-12] MEDS ORDERED: DEXTROSE 10%/0.2% NACL 1,000 ML IV SCH (20:00)
--- NOTE | 2017-02-12 20:27 | PN ---
DATE: 02/12/2017 SUBJECTIVE DATA: The patient remains on Levophed drip. She is lethargic and very weak. She is draining large amount of residual from NG tube and from G-tube. OBJECTIVE DATA: VITAL SIGNS: Temperature 97.8, pulse 80, respirations 25, blood pressure 98/62, and saturation 100 on vent. LABORATORY AND DIAGNOSTIC DATA: WBC 19.5, H and H 8 and 25.6, platelets 453, neutrophils 84.8. BUN 31 and creatinine 1.05. MICROBIOLOGY: Blood cultures repeated on February 09, remain negative. Urine culture growing multidrug resistant Acinetobacter baumannii. Nares swab positive for MRSA. Wound culture growing carbapenem resistant E coli, Morganella morganii, VRE MSSA, stenotrophomonas maltophilia, Pseudomonas aeruginosa. INDWELLINGS: Trach, PEG, George, PICC line placed on February 10. ANTIMICROBIALS: Zyvox, IV colistin, Flagyl,and topical Bactroban to nares. PHYSICAL EXAMINATION: GENERAL: Cachectic elderly woman, who is in no distress. HEENT: Head atraumatic, normocephalic. Sclerae anicteric. Buccal mucosa dry. NECK: Supple. Tracheostomy present. CHEST: Rise symmetrical. Breath sounds diminished at bases. HEART: S1, S2. ABDOMEN: Distended. Bowel sounds present. Again she has NG tube and G tube both to suction. EXTREMITIES: Without cyanosis. ASSESSMENT: 1. Septic shock with multisystem organ failure. 2. Possible ileus versus small-bowel obstruction. 3. Multidrug resistant urinary tract infection. 4. Chronic respiratory failure. 5. Possible healthcare associated pneumonia. 6. Also obstructive pneumonia secondary to lung mass. 7. Lung cancer. 8. Anemia. 9. Unstageable sacral wound with cultures growing multidrug resistant bacteria, not infected per discussion with surgical team. 10. History of Clostridium difficile colitis. 11. Cachexia. 12. Chronic obstructive pulmonary disease (COPD). PLAN: The patient is doing poorly. She is on appropriate antimicrobials. She is being followed by multiple consultants. Pending CT of the abdomen and pelvis. Dictated By: Johnny Chapa NP /[email or web address] /Document#: [id number] SIMEON
[2017-02-12] MEDS ORDERED: SODIUM CHLORIDE 23.4% 154 MEQ in DEXTROSE 10% 1,000 ML IV SCH (23:00)
[2017-02-13] VITALS (101 sets, daily range): BP systolic 62–158; BP diastolic 38–109; PULSE 73–108; RESP 18–35
[2017-02-13] MEDS: IPRATROPIUM (HFA) 12.9 GM INHALER INH SCH ×4 (01:25→19:32)
[2017-02-13] MEDS: ALBUTEROL 18 GM INHALER INH SCH ×4 (01:25→19:32)
[2017-02-13] MEDS: SODIUM CHLORIDE 23.4% 154 MEQ in DEXTROSE 10% 1,000 ML IV SCH ×2 (02:03→15:12)
--- NOTE | 2017-02-13 02:59 | PN ---
DATE: 02/12/2017 ADDENDUM: Location: ICU. I called patient's daughter, Sheila, and had a lengthy discussion with her regarding goals of care. The patient has been declining for the last several months with recurrent infections and progressively increase sized of her lung cancer. The patient's recent CT scan of the abdomen and pelvis also revealed possible mass in the liver. I explained to the daughter that this could be metastatic lesion to the liver; however, since she is not a candidate for any treatment for lung cancer, there is no benefit of doing any biopsy. She was also explained the patient's quality of life has declined. Code status was discussed and she requested the patient be made chemical code only. She does not want any chest compression or defibrillation. The patient will continue to be on vent support. The patient's daughter is currently not ready for comfort measures. Total time spent 30 minutes in discussing goals of care. Dictated By: Bashir Dozier MD /[email or web address]/[email or web address] /Document#: [id number]
[2017-02-13] MEDS: HYDROmorphONE 1 MG/ML SYG IV PRN ×3 (04:06→23:28)
[2017-02-13] MEDS: COLISTIMETHATE 100 MG in SOD CHLORIDE 0.9% 100 ML IVPB SCH ×2 (04:06→16:38)
--- NOTE | 2017-02-13 04:43 | PN ---
DATE: 02/12/2017 SUBJECTIVE DATA: Patient is seen by me because of abdominal distention. Patient in the past several days continues to have abdominal distention. OBJECTIVE DATA: GENERAL: On examination, she is intubated. VITAL SIGNS: Pulse is 92, blood pressure is around 110/85. CARDIOVASCULAR: Tachycardia. RESPIRATORY: Occasional rales heard bilaterally. ABDOMEN: Shows persistent distention. LABORATORY AND DIAGNOSTIC DATA: WBC count is 19,500, hemoglobin 8.0. However, the drainage from the NG tube shows evidence of 900 cc of greenish material, no blood, no black material, or coffee-ground material noted. Chemistry: Potassium 3.2, sodium is 124, BUN is 31, creatinine 1.05. Alkaline phosphatase is 410. Currently, CAT scan of the abdomen is ordered. IMPRESSION: Persistent ileus, rule out partial small bowel obstruction. PLAN: Recommend wait for the CAT scan of the abdomen. We will continue present management. Dictated By: Malik Gonzales MD /[email or web address]/epi /Document#: [id number] ; Dr. Dozier
[2017-02-13] MEDS: LANSOPRAZOLE 30 MG CAP GTB SCH (05:47)
[2017-02-13] MEDS: metroNIDAZOLE 500 MG/NS (PMX) 100 ML IVPB SCH ×3 (06:14→23:20)
[2017-02-13 06:17] LABS: BASOPHIL # 0.1 10^3/ul (0.0-0.1); BASOPHILS % 0.4 % (0.0-2.0); EOSINOPHILS # 0.6 10^3/ul (0.0-0.5); EOSINOPHILS % 3.2 % (0.0-7.0); HEMATOCRIT 26.8 % (37.0-47.0); HEMOGLOBIN 8.4 g/dl (12.0-16.0); LYMPHOCYTES # 1.2 10^3/ul (0.8-2.9); MEAN CORPUSCULAR HEMOGLOBIN 26.7 pg (29.0-33.0); MEAN CORPUSCULAR HGB CONC 31.3 g/dl (32.0-37.0); MEAN CORPUSCULAR VOLUME 85.1 fl (82.0-101.0); MEAN PLATELET VOLUME 8.5 fl (7.4-10.4); MONOCYTE # 0.9 10^3/ul (0.3-0.9); MONOCYTES % 4.6 % (0.0-11.0); NEUTROPHILS % 83.7 % (39.0-77.0); PLATELET COUNT 415 10^3/UL (140-415); RED BLOOD COUNT 3.15 10^6/ul (4.20-5.40); RED CELL DISTRIBUTION WIDTH 16.9 % (11.5-14.5); WHITE BLOOD COUNT 19.4 10^3/ul (4.8-10.8)
[2017-02-13 06:29] LABS: POSITIVE DIFF @See below
[2017-02-13 06:49] LABS: CALCIUM 12.2 mg/dl (8.4-10.2); CREATININE 0.88 mg/dl (0.44-1.00); POTASSIUM 3.1 mmol/L (3.5-5.1)
[2017-02-13 07:23] LABS: MAGNESIUM 1.5 mg/dl (1.7-2.5); PHOSPHORUS 4.5 mg/dl (2.5-4.9)
[2017-02-13] MEDS: ACCU-CHEK XX SCH ×4 (08:14→21:47)
[2017-02-13] MEDS: DEXTROSE 50% 50 ML SYRINGE IV PRN ×4 (08:19→21:45)
--- NOTE | 2017-02-13 08:31 | CONS ---
Date/Time of Note Date/Time of Note DATE: 02/13/17 TIME: 08:28 Assessment/Plan Assessment/Plan Additional Assessment/Plan Ventilator setting; AC of 14, tidal volume 450, PEEP of 5, 45% FiO2. Next Patient currently on Levophed at 24 mics per minute. Assessment and recommendations; 1. Patient with history of chronic respiratory failure which is ventilator dependent admitted for severe sepsis from multiple decubitus wounds, patient requiring multiple admissions over the last several months at various hospitals. 2. Likely left lower lobe lung malignancy, patient has been to0 unstable to undergo any kind of workup. 3. Anemia. 4. Severe generalized deconditioning. 5. Persistent sepsis. 6. COPD. 7. Ileus. Continue current supportive care. Add TPN. Prognosis remains very poor. Consultation Date/Type/Reason Admit Date/Time Feb 01, 2017 at 15:50 Initial Consult Date 02/09/17 Type of Consultation: Pulmonary/critical care Referring Provider: DRE LOBATO MD 24 HR Interval Summary Free Text/Dictation Patient condition remains unstable. Still requiring Levophed for blood pressure maintenance. General exam; elderly woman, on ventilator via tracheostomy, awake and alert. Currently in no distress. Exam/Review of Systems Vital Signs Vitals Vital Signs Date Time Temp Pulse Resp B/P Pulse Ox O2 Delivery O2 Flow Rate FiO2 02/13/17 07:00 86 18 115/56 100 Mechanical Ventilator 02/13/17 05:26 45 02/13/17 04:00 98.0 Intake and Output 02/12/17 02/12/17 02/13/17 15:00 23:00 07:00 Intake Total 1584.96 ml 1669.96 ml 1079.36 ml Output Total 800 ml 1700 ml 1750 ml Balance 784.96 ml -30.04 ml -670.64 ml Exam HEENT exam; supple neck, no JVD. No lymphadenopathy. Midline trachea. No thyromegaly. Patient has multiple carious teeth. Tracheostomy in place with clean insertion site. Pupils are midsize and reactive to light. Chest exam; diminished breath sounds bilaterally. S1-S2 audible, no murmurs. Regular rhythm. Abdomen exam; soft, G-tube in place. Bowel sounds are sluggish to absent. Abdomen is mildly protuberant. Extremity exam; no peripheral edema. Back examination; dressing applied over sacrum. SIFTING OPERATOR exam; patient is awake and follows simple commands. Results Result Diagram: 02/13/17 0530 02/13/17 0530 Results 24 hrs Laboratory Tests Test 02/13/17 05:30 02/13/17 08:06 White Blood Count 19.4 H Red Blood Count 3.15 L Hemoglobin 8.4 L Hematocrit 26.8 L Mean Corpuscular Volume 85.1 Mean Corpuscular Hemoglobin 26.7 L Mean Corpuscular Hemoglobin Concent 31.3 L Red Cell Distribution Width 16.9 H Platelet Count 415 Mean Platelet Volume 8.5 Neutrophils % 83.7 H Lymphocytes % 6.0 L Monocytes % 4.6 Eosinophils % 3.2 Basophils % 0.4 Nucleated Red Blood Cells % 0.0 Neutrophils # (Manual) 16.3 H Lymphocytes # 1.2 Monocytes # 0.9 Eosinophils # 0.6 H Basophils # 0.1 Nucleated Red Blood Cells # 0.0 Sodium Level 126 L Potassium Level 3.1 L Chloride Level 91 L Carbon Dioxide Level 21 Anion Gap 17 H Blood Urea Nitrogen 30 H Creatinine 0.88 Glucose Level 64 #L Calcium Level 12.2 H Phosphorus Level 4.5 Magnesium Level 1.5 L Bedside Glucose 65 L Medications Medications Current Medications Ondansetron HCl (Zofran Inj) 4 mg Q6H PRN IV NAUSEA AND/OR VOMITING Last administered on 02/05/17 09:36; Admin Dose 4 MG; Start 02/01/17 at 22:30 Acetaminophen (Tylenol Tab) 650 mg Q6H PRN PO PAIN LEVEL 1-3 OR FEVER Last administered on 02/04/17 21:08; Admin Dose 650 MG; Start 02/01/17 at 22:30 Acetaminophen/ Hydrocodone Bitart ([place] (5/325)) 1 tab Q6H PRN PO MODERATE PAIN LEVEL 4-6 Last administered on 02/04/17 21:07; Admin Dose 1 TAB; Start at 22:30 Hydromorphone HCl (Dilaudid) 0.5 mg Q4H PRN IV SEVERE PAIN LEVEL 7-10 Last administered on 02/13/17 04:06; Admin Dose 0.5 MG; Start 02/01/17 at 22:30 Docusate Sodium (Colace) 100 mg Q12H PRN PO CONSTIPATION; Start 02/01/17 at 22: 30 Magnesium Hydroxide (Milk Of Mag) 30 ml DAILY PRN PO CONSTIPATION; Start at 22:30 Bisacodyl (Dulcolax) 5 mg DAILY PRN PO CONSTIPATION; Start 02/01/17 at 22:30 Zolpidem Tartrate (Ambien) 5 mg QHS PRN PO SLEEP; Start 02/01/17 at 22:30 Lansoprazole (Prevacid) 30 mg DAILY@06 GTB Last administered on 02/09/17 06:08 ; Admin Dose 30 MG; Start 02/02/17 at 06:00 Enoxaparin Sodium (Lovenox) 40 mg DAILY SC Last administered on 02/12/17 09:15 ; Admin Dose 40 MG; Start 02/02/17 at 09:00 Ascorbic Acid (Vitamin C) 500 mg BID GTB Last administered on 02/09/17 20:51; Admin Dose 500 MG; Start 02/02/17 at 09:00 Diazepam (Valium) 5 mg DAILY PRN GTB ANXIETY Last administered on 02/08/17 20: 27; Admin Dose 5 MG; Start 02/01/17 at 22:30 Duloxetine HCl (Cymbalta) 20 mg DAILY GTB Last administered on 02/09/17 09:34 ; Admin Dose 20 MG; Start 02/02/17 at 09:00 Multivitamins Therapeutic (Theragran) 1 tab DAILY GTB Last administered on 02/09 09:34; Admin Dose 1 TAB; Start 02/02/17 at 09:00 Zinc Sulfate (Zinc Sulfate) 220 mg DAILY GTB Last administered on 02/09/17 09: 34; Admin Dose 220 MG; Start 02/02/17 at 09:00 Lactobacillus Acidophilus (Florajen3 Capsule) 1 each TID NGT Last administered on 02/09/17 20:51; Admin Dose 1 EACH; Start 02/02/17 at 09:00 Lactulose (Enulose) 20 gm BID PO Last administered on 02/09/17 20:51; Admin Dose 20 GM; Start 02/02/17 at 09:00 Collagenase (Santyl) 1 applic DAILY TOP Last administered on 02/12/17 09:00; Admin Dose 1 APPLIC; Start 02/02/17 at 09:00 Collagenase 1 applic 1 applic PRN PRN TOP PRN; Start 02/02/17 at 04:00 Linezolid 300 ml @ 300 mls/hr Q12 IVPB Last administered on 02/12/17 20:37; Admin Dose 300 MLS/HR; Start 02/09/17 at 15:00 Metronidazole 100 ml @ 100 mls/hr Q8 IVPB Last administered on 02/13/17 06:14 ; Admin Dose 100 MLS/HR; Start 02/09/17 at 14:00 Norepinephrine 16 mg/Dextrose 500 ml @ 0 mls/hr TITRATE IV Last administered on 02/13/17 02:24; Admin Dose 41.25 MLS/HR; Start 02/10/17 at 17:30 Colistimethate Sodium/Sodium Chloride (Coly-Mycin/NS) 100 ml @ 200 mls/hr Q12H IVPB Last administered on 02/13/17 04:06; Admin Dose 200 MLS/HR; Start at 04:00 Sodium Hypochlorite (Dakin'S (1/4 Strength)) 1 applic DAILY IRR Last administered on 02/11/17 05:00; Admin Dose 1 APPLIC; Start 02/10/17 at 13:30 IV Flush (NS 10 ml) 10 ml PRN PRN IV FLUSH LINE; Start 02/10/17 at 15:30 Mupirocin 1 applic 1 applic BID TOP Last administered on 02/12/17 20:37; Admin Dose 1 APPLIC; Start 02/11/17 at 14:00 Sodium Chloride/ Dextrose (Nacl/D10w) 1,038.5 ml @ 75 mls/hr [id number] IV Last administered on 02/13/17 02:03; Admin Dose 75 MLS/HR; Start 02/13/17 at 01:21 Dextrose (D50w Syringe) 25 ml IACHS PRN IV DECREASED GLUCOSE Last administered on 02/13/17 08:19; Admin Dose 25 ML; Start 02/13/17 at 08:30 Diagnostic Test (Pha) (Accu-Chek) 1 ea Q4 XX Last administered on 02/13/17 08: 14; Admin Dose 1 EA; Start 02/13/17 at 09:00 REGINE BUCKLEY Feb 13, 2017 08:31
--- NOTE | 2017-02-13 08:53 | RADRPT ---
PROCEDURE: CT Abdomen and Pelvis without contrast. CLINICAL INDICATION: Abdominal distension. TECHNIQUE: Routine axial tomographic images of the abdomen and pelvis were obtained from the domes the diaphragm to the symphysis pubis. The patient was scanned withoutoral or intravenous contrast. Coronal and sagittal reformatted images were obtained from the axial source images. Images were re viewed on a high-resolution PACS workstation. The total exam CTDI equals 20.15 mGy and the total exa m DLP equals 1177.39 mGy-cm. One or more of the following dose reduction techniques were used: Aut omated exposure control, adjustment of the mA and / or kV according to patient size, or use of itera tive reconstruction technique. COMPARISON: CT abdomen and pelvis dated 02/01/2017 FINDINGS: The visualized portions of the lung bases demonstrate small bilateral pleural effusions with bibasil ar consolidation with air bronchograms. Partially imaged is a mass within the left mid lung measuri ng up to 8 cm in diameter and Evaluation of the intra-abdominal solid organs is limited on this n oncontrast examination. The liver appears normal in size. The liver contour appears nodular. There is a 4.3 cm mass within the posterior right hepatic lobe. There is additional 1.8 cm mass within t he medial left hepatic lobe. There is no intra or extrahepatic biliary dilatation. The gallbladder is unremarkable by CT criteria. The spleen, pancreas, and adrenal glands are unremarkable. The kidneys are symmetric in size. No renal, ureteral, or bladder calculi are identified. There is a 2.3 cm cyst within the mid pole of the right kidney. No perinephric inflammatory changes are ident ified. The urinary bladder is decompressed by George catheter. There is marked circumferential blad martine wall thickening. A nasogastric tube and gastrostomy tube are in place. There are multiple moderately distended fluid- filled loops of small bowel. Evaluation is significantly limited secondary to ascites and absence o f intra-abdominal fat. The colon appears normal in caliber containing dense material. Diverticula are seen along the sigmoid colon. The uterus and adnexa are grossly unremarkable. No intraperitone al free air is identified. The aorta is normal in caliber and contains vascular calcifications. The re is moderate volume ascites. No retroperitoneal, mesenteric, or inguinal lymphadenopathy is ident ified. The osseous structures demonstrate postsurgical changes from anterior and posterior fusion of L4-S1. There is significant intervertebral disk space narrowing at L2-3 with 9 mm anterolisthesis of L2 o n L3. There are erosive changes of the S3-S4 vertebral bodies on the left. There is overlying thinn ing of the subcutaneous tissues and small subcutaneous emphysema. There is diffuse soft tissue stra nding. IMPRESSION: 1. Examination is markedly limited secondary to absence of oral and IV contrast as well as presence of abdominal ascites and absence of intra-abdominal fat. There are multiple moderately distended f luid-filled loops of small bowel, concerning for at least partial small-bowel obstruction. The degre e of distension is significantly increased when compared to the prior examination. Consider small-b owel follow-through for further evaluation, as clinically indicated. 2. Moderate volume abdominal ascites, increased from prior examination. 3. At least 2 lesions are noted within the liver, measuring 4.3 cm within the posterior right hepat ic lobe and 1.8 cm within the medial left hepatic lobe. Again, evaluation is limited secondary to a bsence of contrast. Findings are concerning for metastases. Contrast enhanced CT of the chest, abd omen and pelvis should be considered for further evaluation/staging. 4. Status post cholecystectomy. 5. Colonic diverticulosis. 6. Decubitus ulcer with erosive changes of the S3-S4 sacral vertebral bodies on the left, likely re flecting osteomyelitis. 7. Postsurgical changes from anterior posterior fusion of L4-S1. 8. Marked intervertebral disk space narrowing at L2-3 with 9 mm anterolisthesis of L2 on L3. 9. Soft tissue anasarca. 10. Large left lung mass, partially imaged. 11. Small bilateral pleural effusions with bibasilar atelectasis versus pneumonia. 12. Nasogastric tube and gastrostomy tube in place. 13. Aortic atherosclerosis. RPTAT: HH .Maisha Jean MD, MD Date Time Electronically viewed and signed by .Maisha Jean MD, on 02/13/2017 08:53 .G/
[2017-02-13] MEDS ORDERED: [UNRECOGNIZED DRUG - REMARK] XX SCH (09:00)
[2017-02-13] MEDS: L ACIDOPHIL/B LACTIS/B LONGUM CAPSULE NGT SCH ×4 (09:00→21:46)
[2017-02-13] MEDS ORDERED: DIATR MEGLU/DIATRIZOATE SODIUM 120 ML BTL ONE (09:30)
[2017-02-13] MEDS ORDERED: MAGNESIUM SULFATE 2 GM/50 ML 50 ML IVPB ONE (09:30)
[2017-02-13] MEDS ORDERED: POTASSIUM CHLORIDE 20 MEQ in SOD CHLORIDE 0.9% 100 ML IVPB ONE (09:30)
[2017-02-13] MEDS: LINEZOLID 600 MG/D5W (PMX) 300 ML IVPB SCH ×2 (09:54→21:46)
[2017-02-13] MEDS: ENOXAPARIN 40 MG/0.4 ML SYG SC SCH (09:56)
[2017-02-13] MEDS: MUPIROCIN 2% 22 GM OINT TOP SCH ×2 (09:56→21:46)
[2017-02-13] MEDS: COLLAGENASE 30 GM TUBE TOP SCH (09:58)
[2017-02-13] MEDS: SODIUM HYPOCHLORITE 0.125% 473 ML BTL IRR SCH (09:58)
[2017-02-13] MEDS ORDERED: POTASSIUM CHLORIDE 50 ML IVPB ONE (10:00)
[2017-02-13] MEDS ORDERED: TOLVAPTAN 15 MG TABLET PO ONE (11:00)
--- NOTE | 2017-02-13 11:59 | PN ---
Date/Time of Note Date/Time of Note DATE: 02/13/17 TIME: 11:50 Assessment/Plan VTE Prophylaxis VTE Prophylaxis Intervention: SCD's Lines/Catheters IV Catheter Type (from [facility]): PICC Line Central line still needed: Yes Urinary Cath still in place: Yes Reason Cath still needed: urinary retention Assessment/Plan Chief Complaint/Hosp Course Patient continues to be on Levophed drip for hemodynamic support, ventilatory support via tracheostomy, abdomen is distended, tender, G-tube to suction for stomach decompression, continue ICU care, start TPN. Assessment/Plan -Small bowel obstruction. Continue G-tube to low wall suctioning. Dr Gonzales is following in gastroenterology consultation. -Sepsis, most likely secondary to urinary tract infection and possible postobstructive pneumonia. Dr. Coleman is following infection disease consultation, continue antibiotics per ID. -Hyponatremia, Dr. Zapata is following a nephrology consultation, continue IV fluids per renal. 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 -Ventilator dependent respiratory failure with tracheostomy, continue breathing treatments. 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 Plan of care discussed with Dr. Dozier Problems: Exam/Review of Systems Vital Signs Vitals Vital Signs Date Time Temp Pulse Resp B/P Pulse Ox O2 Delivery O2 Flow Rate FiO2 02/13/17 11:20 83 28 100 45 02/13/17 10:00 85/68 Mechanical Ventilator 02/13/17 07:15 97.2 Intake and Output 02/12/17 02/12/17 02/13/17 15:00 23:00 07:00 Intake Total 1584.96 ml 1669.96 ml 1079.36 ml Output Total 800 ml 1700 ml 1750 ml Balance 784.96 ml -30.04 ml -670.64 ml Exam Constitutional: alert Neck: other Respiratory: diminished breath sounds (Urostomy) Cardiovascular: nl pulses Gastrointestinal: distended, other (G-tube), soft, tender Extremities: normal pulses Neurological: confused Skin: other (Multiple wounds) Results Result Diagram: 02/13/17 0530 02/13/17 1028 Results 24 hrs Laboratory Tests Test 02/13/17 05:30 02/13/17 08:06 02/13/17 08:46 02/13/17 09:06 White Blood Count 19.4 H Red Blood Count 3.15 L Hemoglobin 8.4 L Hematocrit 26.8 L Mean Corpuscular Volume 85.1 Mean Corpuscular Hemoglobin 26.7 L Mean Corpuscular Hemoglobin Concent 31.3 L Red Cell Distribution Width 16.9 H Platelet Count 415 Mean Platelet Volume 8.5 Neutrophils % 83.7 H Lymphocytes % 6.0 L Monocytes % 4.6 Eosinophils % 3.2 Basophils % 0.4 Nucleated Red Blood Cells % 0.0 Neutrophils # (Manual) 16.3 H Lymphocytes # 1.2 Monocytes # 0.9 Eosinophils # 0.6 H Basophils # 0.1 Nucleated Red Blood Cells # 0.0 Sodium Level 126 L Potassium Level 3.1 L Chloride Level 91 L Carbon Dioxide Level 21 Anion Gap 17 H Blood Urea Nitrogen 30 H Creatinine 0.88 Glucose Level 64 #L Calcium Level 12.2 H Phosphorus Level 4.5 Magnesium Level 1.5 L Bedside Glucose 65 L 96 97 Test 02/13/17 10:28 Sodium Level 124 L Medications Medications Current Medications Ondansetron HCl (Zofran Inj) 4 mg Q6H PRN IV NAUSEA AND/OR VOMITING Last administered on 02/05/17 09:36; Admin Dose 4 MG; Start 02/01/17 at 22:30 Acetaminophen (Tylenol Tab) 650 mg Q6H PRN PO PAIN LEVEL 1-3 OR FEVER Last administered on 02/04/17 21:08; Admin Dose 650 MG; Start 02/01/17 at 22:30 Acetaminophen/ Hydrocodone Bitart ([place] (5/325)) 1 tab Q6H PRN PO MODERATE PAIN LEVEL 4-6 Last administered on 02/04/17 21:07; Admin Dose 1 TAB; Start at 22:30 Hydromorphone HCl (Dilaudid) 0.5 mg Q4H PRN IV SEVERE PAIN LEVEL 7-10 Last administered on 02/13/17 04:06; Admin Dose 0.5 MG; Start 02/01/17 at 22:30 Docusate Sodium (Colace) 100 mg Q12H PRN PO CONSTIPATION; Start 02/01/17 at 22: 30 Magnesium Hydroxide (Milk Of Mag) 30 ml DAILY PRN PO CONSTIPATION; Start at 22:30 Bisacodyl (Dulcolax) 5 mg DAILY PRN PO CONSTIPATION; Start 02/01/17 at 22:30 Zolpidem Tartrate (Ambien) 5 mg QHS PRN PO SLEEP; Start 02/01/17 at 22:30 Lansoprazole (Prevacid) 30 mg DAILY@06 GTB Last administered on 02/09/17 06:08 ; Admin Dose 30 MG; Start 02/02/17 at 06:00 Enoxaparin Sodium (Lovenox) 40 mg DAILY SC Last administered on 02/13/17 09:56 ; Admin Dose 40 MG; Start 02/02/17 at 09:00 Ascorbic Acid (Vitamin C) 500 mg BID GTB Last administered on 02/09/17 20:51; Admin Dose 500 MG; Start 02/02/17 at 09:00 Diazepam (Valium) 5 mg DAILY PRN GTB ANXIETY Last administered on 02/08/17 20: 27; Admin Dose 5 MG; Start 02/01/17 at 22:30 Duloxetine HCl (Cymbalta) 20 mg DAILY GTB Last administered on 02/09/17 09:34 ; Admin Dose 20 MG; Start 02/02/17 at 09:00 Multivitamins Therapeutic (Theragran) 1 tab DAILY GTB Last administered on 02/09 09:34; Admin Dose 1 TAB; Start 02/02/17 at 09:00 Zinc Sulfate (Zinc Sulfate) 220 mg DAILY GTB Last administered on 02/09/17 09: 34; Admin Dose 220 MG; Start 02/02/17 at 09:00 Lactobacillus Acidophilus (Florajen3 Capsule) 1 each TID NGT Last administered on 02/09/17 20:51; Admin Dose 1 EACH; Start 02/02/17 at 09:00 Lactulose (Enulose) 20 gm BID PO Last administered on 02/09/17 20:51; Admin Dose 20 GM; Start 02/02/17 at 09:00 Collagenase (Santyl) 1 applic DAILY TOP Last administered on 02/13/17 09:58; Admin Dose 1 APPLIC; Start 02/02/17 at 09:00 Collagenase 1 applic 1 applic PRN PRN TOP PRN; Start 02/02/17 at 04:00 Linezolid 300 ml @ 300 mls/hr Q12 IVPB Last administered on 02/13/17 09:54; Admin Dose 300 MLS/HR; Start 02/09/17 at 15:00 Metronidazole 100 ml @ 100 mls/hr Q8 IVPB Last administered on 02/13/17 06:14 ; Admin Dose 100 MLS/HR; Start 02/09/17 at 14:00 Norepinephrine 16 mg/Dextrose 500 ml @ 0 mls/hr TITRATE IV Last administered on 02/13/17 02:24; Admin Dose 41.25 MLS/HR; Start 02/10/17 at 17:30 Colistimethate Sodium/Sodium Chloride (Coly-Mycin/NS) 100 ml @ 200 mls/hr Q12H IVPB Last administered on 02/13/17 04:06; Admin Dose 200 MLS/HR; Start at 04:00 Sodium Hypochlorite (Dakin'S (1/4 Strength)) 1 applic DAILY IRR Last administered on 02/13/17 09:58; Admin Dose 1 APPLIC; Start 02/10/17 at 13:30 IV Flush (NS 10 ml) 10 ml PRN PRN IV FLUSH LINE; Start 02/10/17 at 15:30 Mupirocin 1 applic 1 applic BID TOP Last administered on 02/13/17 09:56; Admin Dose 1 APPLIC; Start 02/11/17 at 14:00 Sodium Chloride/ Dextrose (Nacl/D10w) 1,038.5 ml @ 75 mls/hr [id number] IV Last administered on 02/13/17 02:03; Admin Dose 75 MLS/HR; Start 02/13/17 at 01:21; Stop 02/13/17 at 15:59 Dextrose (D50w Syringe) 25 ml IACHS PRN IV DECREASED GLUCOSE Last administered on 02/13/17 08:19; Admin Dose 25 ML; Start 02/13/17 at 08:30 Diagnostic Test (Pha) 1 ea 1 ea Q4 XX Last administered on 02/13/17 08:14; Admin Dose 1 EA; Start 02/13/17 at 09:00 Total Parenteral Nutrition 1,000 ml @ 60 mls/hr [id number] IV ; Start 02/13/17 at 16:00 Potassium Chloride (KCl 20 MEQ/50 ML SW) 50 ml @ 25 mls/hr ONCE ONCE IVPB Last administered on 02/13/17t 11:46; Admin Dose 25 MLS/HR; Start 02/13/17 at 10 :00; Stop 02/13/17 at 11:59 REBECCA ISLAS Feb 13, 2017 11:59
--- NOTE | 2017-02-13 13:04 | PN ---
DATE: 02/13/2017 SUBJECTIVE DATA: No acute changes overnight. The patient remains on Levophed drip. Lethargic, looks comfortable. Still with large amount of output from NG tube. G-tube was clamped. Temperature 97.2, pulse 83, respirations 24, blood pressure 90/55, saturation 100 on 45 percent FiO2. LABORATORY AND DIAGNOSTIC DATA: WBC 19.4. H and H 8.4 and 26.8, platelets 415, neutrophils 83.7. BUN 30, creatinine 0.88. INDWELLINGS: Trach, PEG, George, PICC line, NG tube. RADIOLOGIC DATA: CT of the abdomen and pelvis done on February 12 was markedly limited secondary to absence of IV or oral contrast as well as the presence of abdominal ascites. Multiple moderately distended fluid filled loops of small bowel concerning for at least partial small bowel obstruction. Degree of distention is significantly increased when compared to the prior examination. At least 2 lesions noted within the liver measuring 4.3 cm when the within the posterior right hepatic lobe and 1.8 cm within the medial left hepatic lobe. Findings are concerning for metastasis. Status post cholecystectomy, colonic diverticulosis, decubitus ulcer with erosive changes of the S3-S4 sacral vertebral bodies on the left, likely reflecting osteomyelitis, large left lung mass. Nasogastric tube and gastrostomy tube in place. Small bilateral pleural effusions with bibasilar atelectasis versus pneumonia. ANTIMICROBIALS: 1. Zyvox. 2. Flagyl. 3. Colistin. PHYSICAL EXAMINATION: GENERAL: Cachectic chronically ill-appearing, elderly woman, who is lethargic, in no distress. HEENT: Head atraumatic, normocephalic. Sclerae anicteric. Buccal mucosa dry. NECK: Supple. Tracheostomy present. CHEST: Rise symmetrical. Breath sounds with bilateral rhonchi. HEART: S1, S2. ABDOMEN: Distended. Bowel sounds present. EXTREMITIES: Without cyanosis. SKIN: With generalized edema and unstageable decubitus. ASSESSMENT: 1. Septic shock with multisystem organ failure. 2. Ileus, possible small bowel obstruction. 3. Metastatic lung cancer. 4. Possible obstructive pneumonia. 5. 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 6. Severe cachexia. 7. Ascites. 8. Multidrug resistant urinary tract infection. 9. Methicillin resistant staphylococcus aureus colonization. PLAN: The patient remains hemodynamically unstable. She is covered with broad-spectrum antibiotics. She is being seen by multiple consultants. Pending small bowel small bowel follow-through study. Dictated By: Johnny Chapa NP /[email or web address]/james /Document#: [id number] [facility]
[2017-02-13] MEDS: DULOXETINE 20 MG CAP DR GTB SCH (14:21)
[2017-02-13] MEDS: ASCORBIC ACID 500 MG TAB GTB SCH ×2 (14:21→21:46)
[2017-02-13] MEDS: MULTIVITAMINS THERAPEUTIC TAB GTB SCH (14:22)
[2017-02-13] MEDS: LACTULOSE 30ML CUP PO SCH ×2 (14:22→21:46)
[2017-02-13] MEDS: TPN 1,000 ML IV SCH (14:25)
[2017-02-13] MEDS: ZINC SULFATE 220 MG CAP GTB SCH (14:25)
[2017-02-13] MEDS ORDERED: PHENYLephrine 40 MG in DEXTROSE 5% 496 ML IV SCH (16:00)
--- NOTE | 2017-02-13 16:38 | CONS ---
Date/Time of Note Date/Time of Note DATE: 02/13/17 TIME: 16:37 Assessment/Plan Assessment/Plan Additional Assessment/Plan 1. 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 septic shock on levophed 3. Recurrent Multidrug Resistant Urinary tract infection 4. Sacral wound 5. Chronic resp failure 6.S/P Tracheostomy, S/p PEG tube placement 7. Lung CA- Squamous Cell CA Plan: Continue current IV abx , ID following, renally dos abx plan is to start TPN S/p 3 % saline on02/09/17- still Na 124, will give tolvaptan 15 mg [id number] x 1 dose today mag 1.6- magnesium sulfate 2 gram IV x 1, KCL 20mEQ IV x1 will follow up Consultation Date/Type/Reason Admit Date/Time Feb 01, 2017 at 15:50 Initial Consult Date 02/08/17 Type of Consultation: NEPHROLGOY Referring Provider: DRE LOBATO MD 24 HR Interval Summary Free Text/Dictation Na still low, G tube can not be used, NG tube in place ,high residual Exam/Review of Systems Vital Signs Vitals Vital Signs Date Time Temp Pulse Resp B/P Pulse Ox O2 Delivery O2 Flow Rate FiO2 02/13/17 15:45 83 24 84/53 100 Mechanical Ventilator 02/13/17 12:00 97.0 02/13/17 12:00 45 Intake and Output 02/12/17 02/12/17 02/13/17 15:00 23:00 07:00 Intake Total 1584.96 ml 1669.96 ml 1079.36 ml Output Total 800 ml 1700 ml 1750 ml Balance 784.96 ml -30.04 ml -670.64 ml Results Result Diagram: 02/13/17 0530 02/13/17 1028 Results 24 hrs Laboratory Tests Test 02/13/17 05:30 02/13/17 08:06 02/13/17 08:46 02/13/17 09:06 White Blood Count 19.4 H Red Blood Count 3.15 L Hemoglobin 8.4 L Hematocrit 26.8 L Mean Corpuscular Volume 85.1 Mean Corpuscular Hemoglobin 26.7 L Mean Corpuscular Hemoglobin Concent 31.3 L Red Cell Distribution Width 16.9 H Platelet Count 415 Mean Platelet Volume 8.5 Neutrophils % 83.7 H Lymphocytes % 6.0 L Monocytes % 4.6 Eosinophils % 3.2 Basophils % 0.4 Nucleated Red Blood Cells % 0.0 Neutrophils # (Manual) 16.3 H Lymphocytes # 1.2 Monocytes # 0.9 Eosinophils # 0.6 H Basophils # 0.1 Nucleated Red Blood Cells # 0.0 Sodium Level 126 L Potassium Level 3.1 L Chloride Level 91 L Carbon Dioxide Level 21 Anion Gap 17 H Blood Urea Nitrogen 30 H Creatinine 0.88 Glucose Level 64 #L Calcium Level 12.2 H Phosphorus Level 4.5 Magnesium Level 1.5 L Bedside Glucose 65 L 96 97 Test 02/13/17 10:28 02/13/17 14:01 02/13/17 14:53 02/13/17 15:09 Sodium Level 124 L Bedside Glucose 44 *L 88 108 Medications Medications Current Medications Ondansetron HCl (Zofran Inj) 4 mg Q6H PRN IV NAUSEA AND/OR VOMITING Last administered on 02/05/17 09:36; Admin Dose 4 MG; Start 02/01/17 at 22:30 Acetaminophen (Tylenol Tab) 650 mg Q6H PRN PO PAIN LEVEL 1-3 OR FEVER Last administered on 02/04/17 21:08; Admin Dose 650 MG; Start 02/01/17 at 22:30 Acetaminophen/ Hydrocodone Bitart ([place] (5/325)) 1 tab Q6H PRN PO MODERATE PAIN LEVEL 4-6 Last administered on 02/04/17 21:07; Admin Dose 1 TAB; Start at 22:30 Hydromorphone HCl (Dilaudid) 0.5 mg Q4H PRN IV SEVERE PAIN LEVEL 7-10 Last administered on 02/13/17 15:10; Admin Dose 0.5 MG; Start 02/01/17 at 22:30 Docusate Sodium (Colace) 100 mg Q12H PRN PO CONSTIPATION; Start 02/01/17 at 22: 30 Magnesium Hydroxide (Milk Of Mag) 30 ml DAILY PRN PO CONSTIPATION; Start at 22:30 Bisacodyl (Dulcolax) 5 mg DAILY PRN PO CONSTIPATION; Start 02/01/17 at 22:30 Zolpidem Tartrate (Ambien) 5 mg QHS PRN PO SLEEP; Start 02/01/17 at 22:30 Lansoprazole (Prevacid) 30 mg DAILY@06 GTB Last administered on 02/09/17 06:08 ; Admin Dose 30 MG; Start 02/02/17 at 06:00 Enoxaparin Sodium (Lovenox) 40 mg DAILY SC Last administered on 02/13/17 09:56 ; Admin Dose 40 MG; Start 02/02/17 at 09:00 Ascorbic Acid (Vitamin C) 500 mg BID GTB Last administered on 02/13/17 14:21; Admin Dose 500 MG; Start 02/02/17 at 09:00 Diazepam (Valium) 5 mg DAILY PRN GTB ANXIETY Last administered on 02/08/17 20: 27; Admin Dose 5 MG; Start 02/01/17 at 22:30 Duloxetine HCl (Cymbalta) 20 mg DAILY GTB Last administered on 02/13/17 14:21 ; Admin Dose 20 MG; Start 02/02/17 at 09:00 Multivitamins Therapeutic (Theragran) 1 tab DAILY GTB Last administered on 02/13 14:22; Admin Dose 1 TAB; Start 02/02/17 at 09:00 Zinc Sulfate (Zinc Sulfate) 220 mg DAILY GTB Last administered on 02/13/17 14: 25; Admin Dose 220 MG; Start 02/02/17 at 09:00 Lactobacillus Acidophilus (Florajen3 Capsule) 1 each TID NGT Last administered on 02/09/17 20:51; Admin Dose 1 EACH; Start 02/02/17 at 09:00 Lactulose (Enulose) 20 gm BID PO Last administered on 02/13/17 14:22; Admin Dose 20 GM; Start 02/02/17 at 09:00 Collagenase (Santyl) 1 applic DAILY TOP Last administered on 02/13/17 09:58; Admin Dose 1 APPLIC; Start 02/02/17 at 09:00 Collagenase 1 applic 1 applic PRN PRN TOP PRN; Start 02/02/17 at 04:00 Linezolid 300 ml @ 300 mls/hr Q12 IVPB Last administered on 02/13/17 09:54; Admin Dose 300 MLS/HR; Start 02/09/17 at 15:00 Metronidazole 100 ml @ 100 mls/hr Q8 IVPB Last administered on 02/13/17 14:22 ; Admin Dose 100 MLS/HR; Start 02/09/17 at 14:00 Norepinephrine 16 mg/Dextrose 500 ml @ 0 mls/hr TITRATE IV Last administered on 02/13/17 13:55; Admin Dose 45 MLS/HR; Start 02/10/17 at 17:30 Colistimethate Sodium/Sodium Chloride (Coly-Mycin/NS) 100 ml @ 200 mls/hr Q12H IVPB Last administered on 02/13/17 04:06; Admin Dose 200 MLS/HR; Start at 04:00 Sodium Hypochlorite (Dakin'S (1/4 Strength)) 1 applic DAILY IRR Last administered on 02/13/17 09:58; Admin Dose 1 APPLIC; Start 02/10/17 at 13:30 IV Flush (NS 10 ml) 10 ml PRN PRN IV FLUSH LINE; Start 02/10/17 at 15:30 Mupirocin (Bactroban) 1 applic BID TOP Last administered on 02/13/17 09:56; Admin Dose 1 APPLIC; Start 02/11/17 at 14:00 Dextrose (D50w Syringe) 25 ml IACHS PRN IV DECREASED GLUCOSE Last administered on 02/13/17 08:19; Admin Dose 25 ML; Start 02/13/17 at 08:30 Diagnostic Test (Pha) 1 ea 1 ea Q4 XX Last administered on 02/13/17 13:45; Admin Dose 1 EA; Start 02/13/17 at 09:00 Total Parenteral Nutrition (Tpn) 1,000 ml @ 60 mls/hr [id number] IV Last administered on 02/13/17 14:25; Admin Dose 60 MLS/HR; Start 02/13/17 at 16:00 Dextrose 50 ml 50 ml IV PRN IV DECREASED GLUCOSE Last administered on 14:37; Admin Dose 50 ML; Start 02/13/17 at 14:30 Phenylephrine HCl/ Dextrose (Mane-Syneph/D5W) 500 ml @ 75 mls/hr TITRATE IV ; Start 02/13/17 at 16:00 DIONNE SAUCEDA MD Feb 13, 2017 16:38
--- NOTE | 2017-02-13 17:36 | PN ---
Date/Time of Note Date/Time of Note DATE: 02/13/17 TIME: 17:18 Assessment/Plan Lines/Catheters IV Catheter Type (from Nrs): PICC Line George in Place (from Nrs): Yes Assessment/Plan Chief Complaint/Hosp Course 1. 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 Multiple decubitus ulcers with debris, with likely osteo -Offload -Optimize nutrition -Vitamin C -Local care with dakins -Debridement sacrococcyx prn when patient medically stable 3. Abdominal distention: possible ileus vs. obstruction (likely); pt with ng tube for decompression, no BM currently; pending sbft -close monitoring 4. Sepsis with hypotension and hypoglycemia: UTI +/- Bacteremia +/- PNA + wounds : on pressors -supportive -abx per sensitivities -pulmonary toilette -optimize blood sugar 5. Acute on chronic diastolic heart failure -Judicious fluid management -Cardiac optimization 6. Hypoalbuminemia: inflammation/infection +/- malnutrition -as above -nutrition optimization 7. Depression. -Medical management 8. Hypothyroidism by history; TSH elevated -Synthroid 9. .Normocytic anemia: chronic disease vs. acute bleed; no rogerio bleed noted: s /p PRBC transfusion -monitor -transfuse as needed - per heme/onc 10. Chronic pain syndrome. Continue pain management 11. UTI: -abx per sensitivity/ID 12. Leukocytosis: 2/2 bacteremia, uti, wounds -abx per sensitivity -supportive 13. Chronic urinary retention with George 14. Severe hyponatremia -per renal -judicious fluids Patient seen and examined in collaboration with Dr. Christian Sinclair. Thank you. Problems: Subjective 24 Hr Interval Summary Continues on pressors. Patient still with NG tube to low continuous section. Large output overnight. No BM no flatus. continues to be uncomfortable in the abdomen area. Pending small bowel follow-through. No fevers chills, chest pain, palpitations, changing tele rhythm, nausea, vomiting, dysuria. Exam/Review of Systems Vital Signs Vitals Vital Signs Date Time Temp Pulse Resp B/P Pulse Ox O2 Delivery O2 Flow Rate FiO2 02/13/17 20:00 45 02/13/17 20:00 92 02/13/17 19:15 27 72/46 99 02/13/17 19:00 Mechanical Ventilator Trach Collar 02/13/17 16:00 98.1 Intake and Output 02/12/17 02/12/17 02/13/17 15:00 23:00 07:00 Intake Total 1584.96 ml 1669.96 ml 1079.36 ml Output Total 800 ml 1700 ml 1750 ml Balance 784.96 ml -30.04 ml -670.64 ml Exam Free Text/Dictation Constitutional: awake, (trached), oriented, No distress Psych: anxious Head: atraumatic, normocephalic Eyes: nl conjunctiva, nl lids, nl sclera ENMT: mucosa pink and moist, nl external ears & nose, nl lips & teeth; ng tube Neck: non-tender, other (tracheostomy, non-reddened, no drainage noted), supple Respiratory: normal effort, no wheezing Cardiovascular: nl pulses, regular rate and rhythm Gastrointestinal: non-tender, other (gtube, site non-tender, non-reddened), mod distention, soft Musculoskeletal: nl extremities to inspection Extremities: normal pulses, extremity Edema +2 Neurological: nl mental status, No nl strength (gen weakness) Skin: No rash; wounds (sacral wound with min/mod dry drainage) Results Result Diagram: 02/13/17 0530 02/13/17 1720 JERRY SAHU NP Feb 13, 2017 17:30
--- NOTE | 2017-02-13 18:08 | CONS ---
Date/Time of Note Date/Time of Note DATE: 02/13/17 TIME: 18:06 Assessment/Plan Assessment/Plan Additional Assessment/Plan S B O plan await report she may need surgery Consultation Date/Type/Reason Admit Date/Time Feb 01, 2017 at 15:50 Initial Consult Date 02/09/17 Type of Consultation: GI Reason for Consultation abd distension Referring Provider: DRE LOBATO MD 24 HR Interval Summary Free Text/Dictation pt has high ng aspirate Exam/Review of Systems Vital Signs Vitals Vital Signs Date Time Temp Pulse Resp B/P Pulse Ox O2 Delivery O2 Flow Rate FiO2 02/13/17 16:00 89 02/13/17 15:45 24 84/53 100 Mechanical Ventilator 02/13/17 12:00 97.0 02/13/17 12:00 45 Intake and Output 02/12/17 02/12/17 02/13/17 15:00 23:00 07:00 Intake Total 1584.96 ml 1669.96 ml 1079.36 ml Output Total 800 ml 1700 ml 1750 ml Balance 784.96 ml -30.04 ml -670.64 ml Exam abd distended S B S [p] Results Result Diagram: 02/13/17 0530 02/13/17 1720 Results 24 hrs Laboratory Tests Test 02/13/17 05:30 02/13/17 08:06 02/13/17 08:46 02/13/17 09:06 White Blood Count 19.4 H Red Blood Count 3.15 L Hemoglobin 8.4 L Hematocrit 26.8 L Mean Corpuscular Volume 85.1 Mean Corpuscular Hemoglobin 26.7 L Mean Corpuscular Hemoglobin Concent 31.3 L Red Cell Distribution Width 16.9 H Platelet Count 415 Mean Platelet Volume 8.5 Neutrophils % 83.7 H Lymphocytes % 6.0 L Monocytes % 4.6 Eosinophils % 3.2 Basophils % 0.4 Nucleated Red Blood Cells % 0.0 Neutrophils # (Manual) 16.3 H Lymphocytes # 1.2 Monocytes # 0.9 Eosinophils # 0.6 H Basophils # 0.1 Nucleated Red Blood Cells # 0.0 Sodium Level 126 L Potassium Level 3.1 L Chloride Level 91 L Carbon Dioxide Level 21 Anion Gap 17 H Blood Urea Nitrogen 30 H Creatinine 0.88 Glucose Level 64 #L Calcium Level 12.2 H Phosphorus Level 4.5 Magnesium Level 1.5 L Bedside Glucose 65 L 96 97 Test 02/13/17 10:28 02/13/17 14:01 02/13/17 14:53 02/13/17 15:09 Sodium Level 124 L Bedside Glucose 44 *L 88 108 Test 02/13/17 17:20 02/13/17 17:43 Sodium Level 123 L Bedside Glucose 47 *L Medications Medications Current Medications Ondansetron HCl (Zofran Inj) 4 mg Q6H PRN IV NAUSEA AND/OR VOMITING Last administered on 02/05/17 09:36; Admin Dose 4 MG; Start 02/01/17 at 22:30 Acetaminophen (Tylenol Tab) 650 mg Q6H PRN PO PAIN LEVEL 1-3 OR FEVER Last administered on 02/04/17 21:08; Admin Dose 650 MG; Start 02/01/17 at 22:30 Acetaminophen/ Hydrocodone Bitart ([place] (5/325)) 1 tab Q6H PRN PO MODERATE PAIN LEVEL 4-6 Last administered on 02/04/17 21:07; Admin Dose 1 TAB; Start at 22:30 Hydromorphone HCl (Dilaudid) 0.5 mg Q4H PRN IV SEVERE PAIN LEVEL 7-10 Last administered on 02/13/17 15:10; Admin Dose 0.5 MG; Start 02/01/17 at 22:30 Docusate Sodium (Colace) 100 mg Q12H PRN PO CONSTIPATION; Start 02/01/17 at 22: 30 Magnesium Hydroxide (Milk Of Mag) 30 ml DAILY PRN PO CONSTIPATION; Start at 22:30 Bisacodyl (Dulcolax) 5 mg DAILY PRN PO CONSTIPATION; Start 02/01/17 at 22:30 Zolpidem Tartrate (Ambien) 5 mg QHS PRN PO SLEEP; Start 02/01/17 at 22:30 Lansoprazole (Prevacid) 30 mg DAILY@06 GTB Last administered on 02/09/17 06:08 ; Admin Dose 30 MG; Start 02/02/17 at 06:00 Enoxaparin Sodium (Lovenox) 40 mg DAILY SC Last administered on 02/13/17 09:56 ; Admin Dose 40 MG; Start 02/02/17 at 09:00 Ascorbic Acid (Vitamin C) 500 mg BID GTB Last administered on 02/13/17 14:21; Admin Dose 500 MG; Start 02/02/17 at 09:00 Diazepam (Valium) 5 mg DAILY PRN GTB ANXIETY Last administered on 02/08/17 20: 27; Admin Dose 5 MG; Start 02/01/17 at 22:30 Duloxetine HCl (Cymbalta) 20 mg DAILY GTB Last administered on 02/13/17 14:21 ; Admin Dose 20 MG; Start 02/02/17 at 09:00 Multivitamins Therapeutic (Theragran) 1 tab DAILY GTB Last administered on 02/13 14:22; Admin Dose 1 TAB; Start 02/02/17 at 09:00 Zinc Sulfate (Zinc Sulfate) 220 mg DAILY GTB Last administered on 02/13/17 14: 25; Admin Dose 220 MG; Start 02/02/17 at 09:00 Lactobacillus Acidophilus (Florajen3 Capsule) 1 each TID NGT Last administered on 02/09/17 20:51; Admin Dose 1 EACH; Start 02/02/17 at 09:00 Lactulose (Enulose) 20 gm BID PO Last administered on 02/13/17 14:22; Admin Dose 20 GM; Start 02/02/17 at 09:00 Collagenase (Santyl) 1 applic DAILY TOP Last administered on 02/13/17 09:58; Admin Dose 1 APPLIC; Start 02/02/17 at 09:00 Collagenase 1 applic 1 applic PRN PRN TOP PRN; Start 02/02/17 at 04:00 Linezolid 300 ml @ 300 mls/hr Q12 IVPB Last administered on 02/13/17 09:54; Admin Dose 300 MLS/HR; Start 02/09/17 at 15:00 Metronidazole 100 ml @ 100 mls/hr Q8 IVPB Last administered on 02/13/17 14:22 ; Admin Dose 100 MLS/HR; Start 02/09/17 at 14:00 Norepinephrine 16 mg/Dextrose 500 ml @ 0 mls/hr TITRATE IV Last administered on 02/13/17 13:55; Admin Dose 45 MLS/HR; Start 02/10/17 at 17:30 Colistimethate Sodium/Sodium Chloride (Coly-Mycin/NS) 100 ml @ 200 mls/hr Q12H IVPB Last administered on 02/13/17 16:38; Admin Dose 200 MLS/HR; Start at 04:00 Sodium Hypochlorite ([place]akin'[place] (1/4 Strength)) 1 applic DAILY IRR Last administered on 02/13/17 09:58; Admin Dose 1 APPLIC; Start 02/10/17 at 13:30 IV Flush (NS 10 ml) 10 ml PRN PRN IV FLUSH LINE; Start 02/10/17 at 15:30 Mupirocin (Bactroban) 1 applic BID TOP Last administered on 02/13/17 09:56; Admin Dose 1 APPLIC; Start 02/11/17 at 14:00 Dextrose (D50w Syringe) 25 ml IACHS PRN IV DECREASED GLUCOSE Last administered on 02/13/17 08:19; Admin Dose 25 ML; Start 02/13/17 at 08:30 Diagnostic Test (Pha) 1 ea 1 ea Q4 XX Last administered on 02/13/17 17:54; Admin Dose 1 EA; Start 02/13/17 at 09:00 Total Parenteral Nutrition (Tpn) 1,000 ml @ 60 mls/hr [id number] IV Last administered on 02/13/17 14:25; Admin Dose 60 MLS/HR; Start 02/13/17 at 16:00 Dextrose 50 ml 50 ml IV PRN IV DECREASED GLUCOSE Last administered on 14:37; Admin Dose 50 ML; Start 02/13/17 at 14:30 Phenylephrine HCl/ Dextrose (Mane-Syneph/D5W) 500 ml @ 75 mls/hr TITRATE IV ; Start 02/13/17 at 16:00 SUNDAR VALVERDE MD Feb 13, 2017 18:08
[2017-02-13] MEDS ORDERED: DEXAMETHASONE 10 MG/ML 1 ML INJ IV ONE (18:30)
[2017-02-13] MEDS ORDERED: DEXAMETHASONE 4 MG/ML 1 ML INJ IV ONE (18:33)
--- NOTE | 2017-02-13 22:08 | CONS ---
Date/Time of Note Date/Time of Note DATE: 02/13/17 TIME: 22:05 Assessment/Plan Assessment/Plan Chief Complaint/Hosp Course -Anemia, POST PRBC transfuse packed red blood cells as needed continue to monitor H&H. COMPLEX, MULTIFACTORIAL -Left lung squamous carcinoma, NOW WITH POS LIVER METS supportive care no aggressive treatment planned - SBO NOW ON CONSERVATIVE MANAGEMENT -Sepsis, most likely secondary to urinary tract infection and possible postobstructive pneumonia. Dr. Coleman is following infection disease consultation, follow-up on cultures, continue antibiotics per ID. -Hyponatremia, nephrology f-up, continue IV fluids per renal. -Ventilator dependent respiratory failure with tracheostomy, continue breathing treatments. -COPD -Dysphagia with PEG -History of cardiopulmonary arrest -Multiple wounds present on admission, that is post debridement at last admission. -Hypothyroidism -Chronic urinary retention with George catheter PROGNOSIS- POOR Problems: Consultation Date/Type/Reason Admit Date/Time Feb 01, 2017 at 15:50 Initial Consult Date 02/08/17 Type of Consultation: HEMEON Referring Provider: DRE LOBATO MD 24 HR Interval Summary Free Text/Dictation ALL NOTED POS SBO Still requiring Levophed for blood pressure maintenance. Exam/Review of Systems Vital Signs Vitals Vital Signs Date Time Temp Pulse Resp B/P Pulse Ox O2 Delivery O2 Flow Rate FiO2 02/13/17 20:00 92 02/13/17 19:15 27 72/46 99 02/13/17 19:00 Mechanical Ventilator Trach Collar 02/13/17 17:00 45 02/13/17 16:00 98.1 Intake and Output 02/12/17 02/12/17 02/13/17 15:00 23:00 07:00 Intake Total 1584.96 ml 1669.96 ml 1079.36 ml Output Total 800 ml 1700 ml 1750 ml Balance 784.96 ml -30.04 ml -670.64 ml Exam Constitutional: awake, (trached), oriented, No distress Psych: anxious Head: atraumatic, normocephalic Eyes: nl conjunctiva, nl lids, nl sclera ENMT: mucosa pink and moist, nl external ears & nose, nl lips & teeth; ng tube Neck: non-tender, other (tracheostomy, non-reddened, no drainage noted), supple Respiratory: normal effort, no wheezing Cardiovascular: nl pulses, regular rate and rhythm Gastrointestinal: non-tender, other (gtube, site non-tender, non-reddened), mod distention, soft Musculoskeletal: nl extremities to inspection Extremities: normal pulses, extremity Edema +2 Neurological: nl mental status, No nl strength (gen weakness) Skin: No rash; wounds (sacral wound with min/mod dry drainage) Results Result Diagram: 02/13/17 0530 02/13/17 1720 Results 24 hrs Laboratory Tests Test 02/13/17 05:30 02/13/17 08:06 02/13/17 08:46 02/13/17 09:06 White Blood Count 19.4 H Red Blood Count 3.15 L Hemoglobin 8.4 L Hematocrit 26.8 L Mean Corpuscular Volume 85.1 Mean Corpuscular Hemoglobin 26.7 L Mean Corpuscular Hemoglobin Concent 31.3 L Red Cell Distribution Width 16.9 H Platelet Count 415 Mean Platelet Volume 8.5 Neutrophils % 83.7 H Lymphocytes % 6.0 L Monocytes % 4.6 Eosinophils % 3.2 Basophils % 0.4 Nucleated Red Blood Cells % 0.0 Neutrophils # (Manual) 16.3 H Lymphocytes # 1.2 Monocytes # 0.9 Eosinophils # 0.6 H Basophils # 0.1 Nucleated Red Blood Cells # 0.0 Sodium Level 126 L Potassium Level 3.1 L Chloride Level 91 L Carbon Dioxide Level 21 Anion Gap 17 H Blood Urea Nitrogen 30 H Creatinine 0.88 Glucose Level 64 #L Calcium Level 12.2 H Phosphorus Level 4.5 Magnesium Level 1.5 L Bedside Glucose 65 L 96 97 Test 02/13/17 10:28 02/13/17 14:01 02/13/17 14:53 02/13/17 15:09 Sodium Level 124 L Bedside Glucose 44 *L 88 108 Test 02/13/17 17:20 02/13/17 17:43 02/13/17 18:41 02/13/17 18:56 Sodium Level 123 L Bedside Glucose 47 *L 98 95 Test 02/13/17 21:37 Bedside Glucose 67 L Medications Medications Current Medications Ondansetron HCl (Zofran Inj) 4 mg Q6H PRN IV NAUSEA AND/OR VOMITING Last administered on 02/05/17t 09:36; Admin Dose 4 MG; Start 02/01/17 at 22:30 Acetaminophen (Tylenol Tab) 650 mg Q6H PRN PO PAIN LEVEL 1-3 OR FEVER Last administered on 02/04/17 21:08; Admin Dose 650 MG; Start 02/01/17 at 22:30 Acetaminophen/ Hydrocodone Bitart ([place] (5/325)) 1 tab Q6H PRN PO MODERATE PAIN LEVEL 4-6 Last administered on 02/04/17 21:07; Admin Dose 1 TAB; Start at 22:30 Hydromorphone HCl (Dilaudid) 0.5 mg Q4H PRN IV SEVERE PAIN LEVEL 7-10 Last administered on 02/13/17 15:10; Admin Dose 0.5 MG; Start 02/01/17 at 22:30 Docusate Sodium (Colace) 100 mg Q12H PRN PO CONSTIPATION; Start 02/01/17 at 22: 30 Magnesium Hydroxide (Milk Of Mag) 30 ml DAILY PRN PO CONSTIPATION; Start at 22:30 Bisacodyl (Dulcolax) 5 mg DAILY PRN PO CONSTIPATION; Start 02/01/17 at 22:30 Zolpidem Tartrate (Ambien) 5 mg QHS PRN PO SLEEP; Start 02/01/17 at 22:30 Lansoprazole (Prevacid) 30 mg DAILY@06 GTB Last administered on 02/09/17 06:08 ; Admin Dose 30 MG; Start 02/02/17 at 06:00 Enoxaparin Sodium (Lovenox) 40 mg DAILY SC Last administered on 02/13/17 09:56 ; Admin Dose 40 MG; Start 02/02/17 at 09:00 Ascorbic Acid (Vitamin C) 500 mg BID GTB Last administered on 02/13/17 21:46; Admin Dose 500 MG; Start 02/02/17 at 09:00 Diazepam (Valium) 5 mg DAILY PRN GTB ANXIETY Last administered on 02/08/17 20: 27; Admin Dose 5 MG; Start 02/01/17 at 22:30 Duloxetine HCl (Cymbalta) 20 mg DAILY GTB Last administered on 02/13/17 14:21 ; Admin Dose 20 MG; Start 02/02/17 at 09:00 Multivitamins Therapeutic (Theragran) 1 tab DAILY GTB Last administered on 02/13 14:22; Admin Dose 1 TAB; Start 02/02/17 at 09:00 Zinc Sulfate (Zinc Sulfate) 220 mg DAILY GTB Last administered on 02/13/17 14: 25; Admin Dose 220 MG; Start 02/02/17 at 09:00 Lactobacillus Acidophilus (Florajen3 Capsule) 1 each TID NGT Last administered on 02/13/17 21:46; Admin Dose 1 EACH; Start 02/02/17 at 09:00 Lactulose (Enulose) 20 gm BID PO Last administered on 02/13/17 21:46; Admin Dose 20 GM; Start 02/02/17 at 09:00 Collagenase (Santyl) 1 applic DAILY TOP Last administered on 02/13/17 09:58; Admin Dose 1 APPLIC; Start 02/02/17 at 09:00 Collagenase 1 applic 1 applic PRN PRN TOP PRN; Start 02/02/17 at 04:00 Linezolid 300 ml @ 300 mls/hr Q12 IVPB Last administered on 02/13/17 21:46; Admin Dose 300 MLS/HR; Start 02/09/17 at 15:00 Metronidazole 100 ml @ 100 mls/hr Q8 IVPB Last administered on 02/13/17 14:22 ; Admin Dose 100 MLS/HR; Start 02/09/17 at 14:00 Norepinephrine 16 mg/Dextrose 500 ml @ 0 mls/hr TITRATE IV Last administered on 02/13/17 13:55; Admin Dose 45 MLS/HR; Start 02/10/17 at 17:30 Colistimethate Sodium/Sodium Chloride (Coly-Mycin/NS) 100 ml @ 200 mls/hr Q12H IVPB Last administered on 02/13/17 16:38; Admin Dose 200 MLS/HR; Start at 04:00 Sodium Hypochlorite (Dakin'S (1/4 Strength)) 1 applic DAILY IRR Last administered on 02/13/17 09:58; Admin Dose 1 APPLIC; Start 02/10/17 at 13:30 IV Flush (NS 10 ml) 10 ml PRN PRN IV FLUSH LINE; Start 02/10/17 at 15:30 Mupirocin (Bactroban) 1 applic BID TOP Last administered on 02/13/17 21:46; Admin Dose 1 APPLIC; Start 02/11/17 at 14:00 Dextrose (D50w Syringe) 25 ml IACHS PRN IV DECREASED GLUCOSE Last administered on 02/13/17 21:45; Admin Dose 25 ML; Start 02/13/17 at 08:30 Diagnostic Test (Pha) 1 ea 1 ea Q4 XX Last administered on 02/13/17 21:47; Admin Dose 1 EA; Start 02/13/17 at 09:00 Total Parenteral Nutrition (Tpn) 1,000 ml @ 60 mls/hr [id number] IV Last administered on 02/13/17 14:25; Admin Dose 60 MLS/HR; Start 02/13/17 at 16:00 Dextrose 50 ml 50 ml IV PRN IV DECREASED GLUCOSE Last administered on 18:07; Admin Dose 50 ML; Start 02/13/17 at 14:30 Phenylephrine HCl/ Dextrose (Mane-Syneph/D5W) 500 ml @ 75 mls/hr TITRATE IV ; Start 02/13/17 at 16:00 Procedures Procedures [place] [address] Radiology Main Line: [phone] DIAGNOSTIC IMAGING REPORT Patient: SHERI FERRERA : 1950 Age: 66 Sex: F MR #: [id number] DOS: 02/12/17 0000 Ordering MD: ZAK POSEY MD Location: ICU Room/Bed: [facility] PROCEDURE: CT Abdomen and Pelvis without contrast. CLINICAL INDICATION: Abdominal distension. TECHNIQUE: Routine axial tomographic images of the abdomen and pelvis were obtained from the domes the diaphragm to the symphysis pubis. The patient was scanned withoutoral or intravenous contrast. Coronal and sagittal reformatted images were obtained from the axial source images. Images were reviewed on a high-resolution PACS workstation. The total exam CTDI equals 20.15 mGy and the total exam DLP equals 1177.39 mGy-cm. One or more of the following dose reduction techniques were used: Automated exposure control, adjustment of the mA and / or kV according to patient size, or use of iterative reconstruction technique. COMPARISON: CT abdomen and pelvis dated 02/01/2017 FINDINGS: The visualized portions of the lung bases demonstrate small bilateral pleural effusions with bibasilar consolidation with air bronchograms. Partially imaged is a mass within the left mid lung measuring up to 8 cm in diameter and Evaluation of the intra-abdominal solid organs is limited on this noncontrast examination. The liver appears normal in size. The liver contour appears nodular. There is a 4.3 cm mass within the posterior right hepatic lobe. There is additional 1.8 cm mass within the medial left hepatic lobe. There is no intra or extrahepatic biliary dilatation. The gallbladder is unremarkable by CT criteria. The spleen, pancreas, and adrenal glands are unremarkable. The kidneys are symmetric in size. No renal, ureteral, or bladder calculi are identified. There is a 2.3 cm cyst within the mid pole of the right kidney. No perinephric inflammatory changes are identified. The urinary bladder is decompressed by George catheter. There is marked circumferential bladder wall thickening. A nasogastric tube and gastrostomy tube are in place. There are multiple moderately distended fluid-filled loops of small bowel. Evaluation is significantly limited secondary to ascites and absence of intra-abdominal fat. The colon appears normal in caliber containing dense material. Diverticula are seen along the sigmoid colon. The uterus and adnexa are grossly unremarkable. No intraperitoneal free air is identified. The aorta is normal in caliber and contains vascular calcifications. There is moderate volume ascites. No retroperitoneal, mesenteric, or inguinal lymphadenopathy is identified. The osseous structures demonstrate postsurgical changes from anterior and posterior fusion of L4-S1. There is significant intervertebral disk space narrowing at L2-3 with 9 mm anterolisthesis of L2 on L3. There are erosive changes of the S3-S4 vertebral bodies on the left. There is overlying thinning of the subcutaneous tissues and small subcutaneous emphysema. There is diffuse soft tissue stranding. IMPRESSION: 1. Examination is markedly limited secondary to absence of oral and IV contrast as well as presence of abdominal ascites and absence of intra- abdominal fat. There are multiple moderately distended fluid-filled loops of small bowel, concerning for at least partial small-bowel obstruction. The degree of distension is significantly increased when compared to the prior examination. Consider small-bowel follow-through for further evaluation, as clinically indicated. 2. Moderate volume abdominal ascites, increased from prior examination. 3. At least 2 lesions are noted within the liver, measuring 4.3 cm within the posterior right hepatic lobe and 1.8 cm within the medial left hepatic lobe. Again, evaluation is limited secondary to absence of contrast. Findings are concerning for metastases. Contrast enhanced CT of the chest, abdomen and pelvis should be considered for further evaluation/staging. 4. Status post cholecystectomy. 5. Colonic diverticulosis. 6. Decubitus ulcer with erosive changes of the S3-S4 sacral vertebral bodies on the left, likely reflecting osteomyelitis. 7. Postsurgical changes from anterior posterior fusion of L4-S1. 8. Marked intervertebral disk space narrowing at L2-3 with 9 mm anterolisthesis of L2 on L3. 9. Soft tissue anasarca. 10. Large left lung mass, partially imaged. 11. Small bilateral pleural effusions with bibasilar atelectasis versus pneumonia. 12. Nasogastric tube and gastrostomy tube in place. 13. Aortic atherosclerosis. RPTAT: HH .Maisha Jean MD, MD Date Time Electronically viewed and signed by .Maisha Jean MD, on 02/13/2017 08 :53 .G/ CC: ZAK POSEY MD, VERA M MD Feb 13, 2017 22:08
[2017-02-14] VITALS (97 sets, daily range): BP systolic 83–151; BP diastolic 58–90; PULSE 71–106; RESP 14–25
[2017-02-14 00:49] LABS: CREATININE 0.86 mg/dl (0.44-1.00); MAGNESIUM 1.9 mg/dl (1.7-2.5); PHOSPHORUS 4.7 mg/dl (2.5-4.9); POTASSIUM 3.4 mmol/L (3.5-5.1)
[2017-02-14 01:01] LABS: CALCIUM 13.2 mg/dl (8.4-10.2)
[2017-02-14] MEDS: ACCU-CHEK XX SCH ×5 (01:36→17:32)
[2017-02-14] MEDS: POTASSIUM CHLORIDE 50 ML IVPB SCH ×2 (01:41→03:07)
[2017-02-14] MEDS: IPRATROPIUM (HFA) 12.9 GM INHALER INH SCH ×4 (03:47→19:20)
[2017-02-14] MEDS: ALBUTEROL 18 GM INHALER INH SCH ×4 (03:47→19:20)
[2017-02-14] MEDS: metroNIDAZOLE 500 MG/NS (PMX) 100 ML IVPB SCH ×3 (05:21→21:54)
[2017-02-14] MEDS: HYDROmorphONE 1 MG/ML SYG IV PRN ×2 (05:21→11:31)
[2017-02-14] MEDS: COLISTIMETHATE 100 MG in SOD CHLORIDE 0.9% 100 ML IVPB SCH ×2 (05:21→15:53)
[2017-02-14] MEDS: LANSOPRAZOLE 30 MG CAP GTB SCH (05:21)
[2017-02-14 06:46] LABS: ABNORMAL IP MESSAGE 1; BASOPHIL # 0.1 10^3/ul (0.0-0.1); BASOPHILS % 0.4 % (0.0-2.0); HEMATOCRIT 29.3 % (37.0-47.0); HEMOGLOBIN 9.3 g/dl (12.0-16.0); LYMPHOCYTES # 0.6 10^3/ul (0.8-2.9); LYMPHOCYTES % 2.7 % (15.0-51.0); MEAN CORPUSCULAR HEMOGLOBIN 27.3 pg (29.0-33.0); MEAN CORPUSCULAR HGB CONC 31.7 g/dl (32.0-37.0); MEAN CORPUSCULAR VOLUME 85.9 fl (82.0-101.0); MEAN PLATELET VOLUME 8.6 fl (7.4-10.4); MONOCYTE # 0.5 10^3/ul (0.3-0.9); MONOCYTES % 2.5 % (0.0-11.0); PLATELET COUNT 356 10^3/UL (140-415); RED BLOOD COUNT 3.41 10^6/ul (4.20-5.40); RED CELL DISTRIBUTION WIDTH 16.9 % (11.5-14.5); WHITE BLOOD COUNT 21.3 10^3/ul (4.8-10.8)
[2017-02-14 06:52] LABS: NEUTROPHILS % 90.3 % (39.0-77.0); POSITIVE DIFF @See below
[2017-02-14 06:57] LABS: ALBUMIN 2.6 g/dl (3.3-4.9)
[2017-02-14 07:04] LABS: PREALBUMIN 3.5 mg/dl (17.6-36.0)
[2017-02-14 08:45] LABS: CREATININE 0.91 mg/dl (0.44-1.00)
[2017-02-14 08:52] LABS: POTASSIUM 3.9 mmol/L (3.5-5.1)
[2017-02-14 08:53] LABS: CALCIUM 13.5 mg/dl (8.4-10.2)
[2017-02-14] MEDS: LINEZOLID 600 MG/D5W (PMX) 300 ML IVPB SCH ×2 (09:13→21:48)
[2017-02-14] MEDS: TPN 1,000 ML IV SCH (09:18)
[2017-02-14] MEDS: ASCORBIC ACID 500 MG TAB GTB SCH ×2 (09:29→21:47)
[2017-02-14] MEDS: ZINC SULFATE 220 MG CAP GTB SCH (09:29)
[2017-02-14] MEDS: L ACIDOPHIL/B LACTIS/B LONGUM CAPSULE NGT SCH ×3 (09:29→21:47)
[2017-02-14] MEDS: DULOXETINE 20 MG CAP DR GTB SCH (09:29)
[2017-02-14] MEDS: LACTULOSE 30ML CUP PO SCH ×2 (09:30→21:47)
[2017-02-14] MEDS: MULTIVITAMINS THERAPEUTIC TAB GTB SCH (09:30)
[2017-02-14] MEDS: SODIUM HYPOCHLORITE 0.125% 473 ML BTL IRR SCH (09:37)
[2017-02-14] MEDS: MUPIROCIN 2% 22 GM OINT TOP SCH ×2 (09:38→21:50)
[2017-02-14] MEDS: COLLAGENASE 30 GM TUBE TOP SCH (09:38)
[2017-02-14] MEDS: ENOXAPARIN 40 MG/0.4 ML SYG SC SCH (09:40)
--- NOTE | 2017-02-14 12:00 | PN ---
DATE: 02/14/2017 SUBJECTIVE DATA: No acute changes. The patient is more awake today. Still on Levophed drip. Looks comfortable. No fevers. OBJECTIVE DATA: VITAL SIGNS: Temperature 97.1, pulse 79, respirations 21, blood pressure 112/75, saturation 100 on 30 percent. LABORATORY AND DIAGNOSTIC DATA: WBC 21.3, H and H 9.3 and 29.3, platelets 356, neutrophils 90.3. BUN 32, creatinine 0.91. INDWELLING: Trach, PEG, fairly, NG tube, PICC line. ANTIMICROBIALS: The patient remains on Bactroban topical to nares, colistin, IV Zyvox, Flagyl. MICROBIOLOGY: Blood culture since February 09, negative. PHYSICAL EXAMINATION: GENERAL: This is a cachectic, well-developed, elderly woman, who is awake, in no distress. HEENT: Head atraumatic, normocephalic. Sclerae anicteric. Buccal mucosa dry. NECK: Supple. Tracheostomy present. LUNGS: Chest rise symmetrical. Breath sounds with scattered rhonchi. HEART: S1, S2. ABDOMEN: Soft, bowel sounds present. EXTREMITIES: Without cyanosis. SKIN: Positive for anasarca and an unstageable decubitus. ASSESSMENT: 1. Septic shock. 2. Possible small bowel obstruction, status post small bowel follow-through study this morning, results pending. 3. Metastatic lung cancer. 4. [id number] respiratory failure, possible obstructive pneumonia. 5. Chronic wounds with questionable osteomyelitis over the sacral area as per CT. 6. History of Clostridium difficile colitis. 7. Multidrug-resistant urinary tract infection. 8. Methicillin-resistant Staphylococcus aureus nares colonization. 9. Ascites. 10. Anemia. 11. Hypercalcemia. PLAN: The patient remains hemodynamically unstable, although staff is titrating Levophed down she is more alert, status post Decadron dose yesterday for hypoglycemia. She is on appropriate antimicrobials. We will await for diagnostic studies. Continue present care. Continue local wound care as per surgical recommendations. The patient is a CHEMICAL CODE. Dictated By: Johnny Chapa NP /altagracia/epi /Document#: [id number]
--- NOTE | 2017-02-14 13:05 | CONS ---
Date/Time of Note Date/Time of Note DATE: 02/14/17 TIME: 13:02 Assessment/Plan Assessment/Plan Additional Assessment/Plan Ventilator setting; AC of 14, tidal volume 450, PEEP of 5, 30% FiO2. Patient currently on Levophed at 6 mics per minute. Assessment and recommendations; 1. Patient admitted for recurrent sepsis from multiple decubitus ulcers involving the sacrum. Currently on broad-spectrum antibiotic regimen. 2. Chronic respiratory failure. 3. COPD. 4. Likely left lower lobe lung malignancy, patient has been too unstable lately to undergo any kind of workup. 5. Anemia. 6. Severe generalized deconditioning. 7. Ileus. Continue current supportive care. Prognosis is poor. Consultation Date/Type/Reason Admit Date/Time Feb 01, 2017 at 15:50 Initial Consult Date 02/09/17 Type of Consultation: Pulmonary/critical care Referring Provider: DRE LOBATO MD 24 HR Interval Summary Free Text/Dictation Patient's condition remains critical. Still requiring Levophed although at a much lower dosing. Patient remains awake and alert. General exam; elderly woman, on ventilator via tracheostomy, awake, currently in no distress. Exam/Review of Systems Vital Signs Vitals Vital Signs Date Time Temp Pulse Resp B/P Pulse Ox O2 Delivery O2 Flow Rate FiO2 02/14/17 11:45 77 17 108/69 100 Mechanical Ventilator Trach Collar 02/14/17 11:44 30 02/14/17 08:00 97.1 Intake and Output 02/13/17 02/13/17 02/14/17 15:00 23:00 07:00 Intake Total 1535 ml 1351.20 ml 748.12 ml Output Total 910 ml 2025 ml 2925 ml Balance 625 ml -673.80 ml -2176.88 ml Exam HEENT exam; supple neck, no JVD. No lymphadenopathy. Midline trachea. No thyromegaly. Tracheostomy in place. Insertion site is clean. Patient has a multiple carious teeth. Chest exam; diminished but clear breath sounds. S1-S2 audible, no murmurs. Regular rhythm. Abdomen exam; soft, mildly tender. Bowel sounds are sluggish. G-tube in place. Extremities no peripheral edema. Examination; dressing applied over sacrum. [employer] exam; patient is awake and alert follows commands and moves all 4 extremities on command. Results Result Diagram: 02/14/17 0530 02/14/17 0530 Results 24 hrs Laboratory Tests Test 02/13/17 14:01 02/13/17 14:53 02/13/17 15:09 02/13/17 17:20 Bedside Glucose 44 *L 88 108 Sodium Level 123 L Test 02/13/17 17:43 02/13/17 18:41 02/13/17 18:56 02/13/17 21:37 Bedside Glucose 47 *L 98 95 67 L Test 02/13/17 23:20 02/14/17 00:30 02/14/17 01:33 02/14/17 05:30 Bedside Glucose 109 104 105 Sodium Level 126 L 129 L Potassium Level 3.4 L 3.9 Chloride Level 89 L 92 L Carbon Dioxide Level 21 20 L Anion Gap 19 H 21 H Blood Urea Nitrogen 31 H 32 H Creatinine 0.86 0.91 Glucose Level 104 # 98 Calcium Level 13.2 *H 13.5 *H Phosphorus Level 4.7 5.0 H Magnesium Level 1.9 2.0 White Blood Count 21.3 H Red Blood Count 3.41 L Hemoglobin 9.3 L Hematocrit 29.3 L Mean Corpuscular Volume 85.9 Mean Corpuscular Hemoglobin 27.3 L Mean Corpuscular Hemoglobin Concent 31.7 L Red Cell Distribution Width 16.9 H Platelet Count 356 Mean Platelet Volume 8.6 Neutrophils % 90.3 H Lymphocytes % 2.7 L Monocytes % 2.5 Eosinophils % 0.0 Basophils % 0.4 Nucleated Red Blood Cells % 0.0 Neutrophils # (Manual) 19.2 H Lymphocytes # 0.6 L Monocytes # 0.5 Eosinophils # 0.0 Basophils # 0.1 Nucleated Red Blood Cells # 0.0 Albumin 2.6 L Prealbumin 3.5 L Triglycerides Level 43 Test 02/14/17 09:44 Bedside Glucose 143 Medications Medications Current Medications Ondansetron HCl (Zofran Inj) 4 mg Q6H PRN IV NAUSEA AND/OR VOMITING Last administered on 02/05/17 09:36; Admin Dose 4 MG; Start 02/01/17 at 22:30 Acetaminophen (Tylenol Tab) 650 mg Q6H PRN PO PAIN LEVEL 1-3 OR FEVER Last administered on 02/04/17 21:08; Admin Dose 650 MG; Start 02/01/17 at 22:30 Acetaminophen/ Hydrocodone Bitart ([place] (5/325)) 1 tab Q6H PRN PO MODERATE PAIN LEVEL 4-6 Last administered on 02/04/17 21:07; Admin Dose 1 TAB; Start at 22:30 Hydromorphone HCl (Dilaudid) 0.5 mg Q4H PRN IV SEVERE PAIN LEVEL 7-10 Last administered on 02/14/17 11:31; Admin Dose 0.5 MG; Start 02/01/17 at 22:30 Docusate Sodium (Colace) 100 mg Q12H PRN PO CONSTIPATION; Start 02/01/17 at 22: 30 Magnesium Hydroxide (Milk Of Mag) 30 ml DAILY PRN PO CONSTIPATION; Start at 22:30 Bisacodyl (Dulcolax) 5 mg DAILY PRN PO CONSTIPATION; Start 02/01/17 at 22:30 Zolpidem Tartrate (Ambien) 5 mg QHS PRN PO SLEEP; Start 02/01/17 at 22:30 Lansoprazole (Prevacid) 30 mg DAILY@06 GTB Last administered on 02/14/17 05:21 ; Admin Dose 30 MG; Start 02/02/17 at 06:00 Enoxaparin Sodium (Lovenox) 40 mg DAILY SC Last administered on 02/14/17 09:40 ; Admin Dose 40 MG; Start 02/02/17 at 09:00 Ascorbic Acid (Vitamin C) 500 mg BID GTB Last administered on 02/14/17 09:29; Admin Dose 500 MG; Start 02/02/17 at 09:00 Diazepam (Valium) 5 mg DAILY PRN GTB ANXIETY Last administered on 02/08/17 20: 27; Admin Dose 5 MG; Start 02/01/17 at 22:30 Duloxetine HCl (Cymbalta) 20 mg DAILY GTB Last administered on 02/14/17 09:29 ; Admin Dose 20 MG; Start 02/02/17 at 09:00 Multivitamins Therapeutic (Theragran) 1 tab DAILY GTB Last administered on 02/14 09:30; Admin Dose 1 TAB; Start 02/02/17 at 09:00 Zinc Sulfate (Zinc Sulfate) 220 mg DAILY GTB Last administered on 02/14/17 09: 29; Admin Dose 220 MG; Start 02/02/17 at 09:00 Lactobacillus Acidophilus (Florajen3 Capsule) 1 each TID NGT Last administered on 02/14/17 09:29; Admin Dose 1 EACH; Start 02/02/17 at 09:00 Lactulose (Enulose) 20 gm BID PO Last administered on 02/14/17 09:30; Admin Dose 20 GM; Start 02/02/17 at 09:00 Collagenase (Santyl) 1 applic DAILY TOP Last administered on 02/14/17 09:38; Admin Dose 1 APPLIC; Start 02/02/17 at 09:00 Collagenase 1 applic 1 applic PRN PRN TOP PRN; Start 02/02/17 at 04:00 Linezolid 300 ml @ 300 mls/hr Q12 IVPB Last administered on 02/14/17 09:13; Admin Dose 300 MLS/HR; Start 02/09/17 at 15:00 Metronidazole 100 ml @ 100 mls/hr Q8 IVPB Last administered on 02/14/17 05:21 ; Admin Dose 100 MLS/HR; Start 02/09/17 at 14:00 Norepinephrine 16 mg/Dextrose 500 ml @ 0 mls/hr TITRATE IV Last administered on 02/14/17 00:36; Admin Dose 48.75 MLS/HR; Start 02/10/17 at 17:30 Colistimethate Sodium/Sodium Chloride (Coly-Mycin/NS) 100 ml @ 200 mls/hr Q12H IVPB Last administered on 02/14/17 05:21; Admin Dose 200 MLS/HR; Start at 04:00 Sodium Hypochlorite (Dakin'S (1/4 Strength)) 1 applic DAILY IRR Last administered on 02/14/17 09:37; Admin Dose 1 APPLIC; Start 02/10/17 at 13:30 IV Flush (NS 10 ml) 10 ml PRN PRN IV FLUSH LINE; Start 02/10/17 at 15:30 Mupirocin (Bactroban) 1 applic BID TOP Last administered on 02/14/17 09:38; Admin Dose 1 APPLIC; Start 02/11/17 at 14:00 Dextrose (D50w Syringe) 25 ml IACHS PRN IV DECREASED GLUCOSE Last administered on 02/13/17 21:45; Admin Dose 25 ML; Start 02/13/17 at 08:30 Diagnostic Test (Pha) 1 ea 1 ea Q4 XX Last administered on 02/14/17 05:39; Admin Dose 1 EA; Start 02/13/17 at 09:00 Total Parenteral Nutrition (Tpn) 1,000 ml @ 60 mls/hr [id number] IV Last administered on 02/14/17 09:18; Admin Dose 60 MLS/HR; Start 02/13/17 at 16:00 Dextrose 50 ml 50 ml IV PRN IV DECREASED GLUCOSE Last administered on 18:07; Admin Dose 50 ML; Start 02/13/17 at 14:30 Phenylephrine HCl/ Dextrose (Mane-Syneph/D5W) 500 ml @ 75 mls/hr TITRATE IV ; Start 02/13/17 at 16:00 REGINE BUCKLEY Feb 14, 2017 13:05
--- NOTE | 2017-02-14 13:50 | PN ---
Date/Time of Note Date/Time of Note DATE: 02/14/17 TIME: 13:48 Assessment/Plan VTE Prophylaxis VTE Prophylaxis Intervention: SCD's Lines/Catheters IV Catheter Type (from [facility]): PICC Line Central line still needed: Yes Urinary Cath still in place: Yes Reason Cath still needed: urinary retention Assessment/Plan Chief Complaint/Hosp Course Abdomen is slightly less distended, patient continues to be on Levophed drip, ventilatory support via tracheostomy, abdomen is tender, NG-tube to suction for stomach decompression, continue ICU care, continue TPN. Assessment/Plan -Small bowel obstruction. Continue G-tube to low wall suctioning. Dr Gonzales is following in gastroenterology consultation. -Sepsis, most likely secondary to urinary tract infection and possible postobstructive pneumonia. Dr. Coleman is following infection disease consultation, continue antibiotics per ID. -Hyponatremia, Dr. Zapata is following a nephrology consultation, continue IV fluids per renal. 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 -Ventilator dependent respiratory failure with tracheostomy, continue breathing treatments. 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 Plan of care discussed with Dr. Dozier Problems: Exam/Review of Systems Vital Signs Vitals Vital Signs Date Time Temp Pulse Resp B/P Pulse Ox O2 Delivery O2 Flow Rate FiO2 02/14/17 11:45 77 17 108/69 100 Mechanical Ventilator Trach Collar 02/14/17 11:44 30 02/14/17 08:00 97.1 Intake and Output 02/13/17 02/13/17 02/14/17 15:00 23:00 07:00 Intake Total 1535 ml 1351.20 ml 748.12 ml Output Total 910 ml 2025 ml 2925 ml Balance 625 ml -673.80 ml -2176.88 ml Exam Constitutional: alert Neck: other Respiratory: diminished breath sounds (Urostomy) Cardiovascular: nl pulses Gastrointestinal: distended, other (G-tube), soft, tender Extremities: normal pulses Neurological: confused Skin: other (Multiple wounds) Results Result Diagram: 02/14/1730 02/14/17 0530 Results 24 hrs Laboratory Tests Test 02/13/17 14:01 02/13/17 14:53 02/13/17 15:09 02/13/17 17:20 Bedside Glucose 44 *L 88 108 Sodium Level 123 L Test 02/13/17 17:43 02/13/17 18:41 02/13/17 18:56 02/13/17 21:37 Bedside Glucose 47 *L 98 95 67 L Test 02/13/17 23:20 02/14/17 00:30 02/14/17 01:33 02/14/17 05:30 Bedside Glucose 109 104 105 Sodium Level 126 L 129 L Potassium Level 3.4 L 3.9 Chloride Level 89 L 92 L Carbon Dioxide Level 21 20 L Anion Gap 19 H 21 H Blood Urea Nitrogen 31 H 32 H Creatinine 0.86 0.91 Glucose Level 104 # 98 Calcium Level 13.2 *H 13.5 *H Phosphorus Level 4.7 5.0 H Magnesium Level 1.9 2.0 White Blood Count 21.3 H Red Blood Count 3.41 L Hemoglobin 9.3 L Hematocrit 29.3 L Mean Corpuscular Volume 85.9 Mean Corpuscular Hemoglobin 27.3 L Mean Corpuscular Hemoglobin Concent 31.7 L Red Cell Distribution Width 16.9 H Platelet Count 356 Mean Platelet Volume 8.6 Neutrophils % 90.3 H Lymphocytes % 2.7 L Monocytes % 2.5 Eosinophils % 0.0 Basophils % 0.4 Nucleated Red Blood Cells % 0.0 Neutrophils # (Manual) 19.2 H Lymphocytes # 0.6 L Monocytes # 0.5 Eosinophils # 0.0 Basophils # 0.1 Nucleated Red Blood Cells # 0.0 Albumin 2.6 L Prealbumin 3.5 L Triglycerides Level 43 Test 02/14/17 09:44 Bedside Glucose 143 Medications Medications Current Medications Ondansetron HCl (Zofran Inj) 4 mg Q6H PRN IV NAUSEA AND/OR VOMITING Last administered on 02/05/17 09:36; Admin Dose 4 MG; Start 02/01/17 at 22:30 Acetaminophen (Tylenol Tab) 650 mg Q6H PRN PO PAIN LEVEL 1-3 OR FEVER Last administered on 02/04/17 21:08; Admin Dose 650 MG; Start 02/01/17 at 22:30 Acetaminophen/ Hydrocodone Bitart ([place] (5/325)) 1 tab Q6H PRN PO MODERATE PAIN LEVEL 4-6 Last administered on 02/04/17 21:07; Admin Dose 1 TAB; Start at 22:30 Hydromorphone HCl (Dilaudid) 0.5 mg Q4H PRN IV SEVERE PAIN LEVEL 7-10 Last administered on 02/14/17 11:31; Admin Dose 0.5 MG; Start 02/01/17 at 22:30 Docusate Sodium (Colace) 100 mg Q12H PRN PO CONSTIPATION; Start 02/01/17 at 22: 30 Magnesium Hydroxide (Milk Of Mag) 30 ml DAILY PRN PO CONSTIPATION; Start at 22:30 Bisacodyl (Dulcolax) 5 mg DAILY PRN PO CONSTIPATION; Start 02/01/17 at 22:30 Zolpidem Tartrate (Ambien) 5 mg QHS PRN PO SLEEP; Start 02/01/17 at 22:30 Lansoprazole (Prevacid) 30 mg DAILY@06 GTB Last administered on 02/14/17 05:21 ; Admin Dose 30 MG; Start 02/02/17 at 06:00 Enoxaparin Sodium (Lovenox) 40 mg DAILY SC Last administered on 02/14/17 09:40 ; Admin Dose 40 MG; Start 02/02/17 at 09:00 Ascorbic Acid (Vitamin C) 500 mg BID GTB Last administered on 02/14/17 09:29; Admin Dose 500 MG; Start 02/02/17 at 09:00 Diazepam (Valium) 5 mg DAILY PRN GTB ANXIETY Last administered on 02/08/17 20: 27; Admin Dose 5 MG; Start 02/01/17 at 22:30 Duloxetine HCl (Cymbalta) 20 mg DAILY GTB Last administered on 02/14/17 09:29 ; Admin Dose 20 MG; Start 02/02/17 at 09:00 Multivitamins Therapeutic (Theragran) 1 tab DAILY GTB Last administered on 02/14 09:30; Admin Dose 1 TAB; Start 02/02/17 at 09:00 Zinc Sulfate (Zinc Sulfate) 220 mg DAILY GTB Last administered on 02/14/17 09: 29; Admin Dose 220 MG; Start 02/02/17 at 09:00 Lactobacillus Acidophilus (Florajen3 Capsule) 1 each TID NGT Last administered on 02/14/17 09:29; Admin Dose 1 EACH; Start 02/02/17 at 09:00 Lactulose (Enulose) 20 gm BID PO Last administered on 02/14/17 09:30; Admin Dose 20 GM; Start 02/02/17 at 09:00 Collagenase (Santyl) 1 applic DAILY TOP Last administered on 02/14/17 09:38; Admin Dose 1 APPLIC; Start 02/02/17 at 09:00 Collagenase 1 applic 1 applic PRN PRN TOP PRN; Start 02/02/17 at 04:00 Linezolid 300 ml @ 300 mls/hr Q12 IVPB Last administered on 02/14/17 09:13; Admin Dose 300 MLS/HR; Start 02/09/17 at 15:00 Metronidazole 100 ml @ 100 mls/hr Q8 IVPB Last administered on 02/14/17 05:21 ; Admin Dose 100 MLS/HR; Start 02/09/17 at 14:00 Norepinephrine 16 mg/Dextrose 500 ml @ 0 mls/hr TITRATE IV Last administered on 02/14/17 00:36; Admin Dose 48.75 MLS/HR; Start 02/10/17 at 17:30 Colistimethate Sodium/Sodium Chloride (Coly-Mycin/NS) 100 ml @ 200 mls/hr Q12H IVPB Last administered on 02/14/17 05:21; Admin Dose 200 MLS/HR; Start at 04:00 Sodium Hypochlorite (Dakin'S (1/4 Strength)) 1 applic DAILY IRR Last administered on 02/14/17 09:37; Admin Dose 1 APPLIC; Start 02/10/17 at 13:30 IV Flush (NS 10 ml) 10 ml PRN PRN IV FLUSH LINE; Start 02/10/17 at 15:30 Mupirocin (Bactroban) 1 applic BID TOP Last administered on 02/14/17 09:38; Admin Dose 1 APPLIC; Start 02/11/17 at 14:00 Dextrose (D50w Syringe) 25 ml IACHS PRN IV DECREASED GLUCOSE Last administered on 02/13/17 21:45; Admin Dose 25 ML; Start 8/29/17 at 08:30 Diagnostic Test (Pha) 1 ea 1 ea Q4 XX Last administered on 02/14/17 05:39; Admin Dose 1 EA; Start 02/13/17 at 09:00 Total Parenteral Nutrition (Tpn) 1,000 ml @ 60 mls/hr [id number] IV Last administered on 02/14/17 09:18; Admin Dose 60 MLS/HR; Start 02/13/17 at 16:00 Dextrose 50 ml 50 ml IV PRN IV DECREASED GLUCOSE Last administered on 18:07; Admin Dose 50 ML; Start 02/13/17 at 14:30 Phenylephrine HCl/ Dextrose (Mane-Syneph/D5W) 500 ml @ 75 mls/hr TITRATE IV ; Start 02/13/17 at 16:00 REBECCA ISLAS Feb 14, 2017 13:50
--- NOTE | 2017-02-14 14:15 | PN ---
Date/Time of Note Date/Time of Note DATE: 02/14/17 TIME: 14:00 Assessment/Plan Lines/Catheters IV Catheter Type (from Nrs): PICC Line Story in Place (from Nrsg): Yes Assessment/Plan Chief Complaint/Hosp Course 1. 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 Multiple decubitus ulcers with debris, with likely osteo -Offload -Optimize nutrition -Vitamin C -Local care with dakins -Debridement sacrococcyx prn when patient medically stable 3. Abdominal distention: possible ileus vs. obstruction (likely); pt with ng tube for decompression, no BM currently; pending sbft results -close monitoring 4. Sepsis with hypotension and hypoglycemia: UTI +/- Bacteremia +/- PNA + wounds : on pressors (titrating down); s/p decadron -supportive -abx per sensitivities -pulmonary toilette -optimize blood sugar 5. Acute on chronic diastolic heart failure -Judicious fluid management -Cardiac optimization 6. Hypoalbuminemia: inflammation/infection +/- malnutrition -as above -nutrition optimization 7. Depression. -Medical management 8. Hypothyroidism by history; TSH elevated -Synthroid 9. .Normocytic anemia: chronic disease vs. acute bleed; no rogerio bleed noted: s /p PRBC transfusion -monitor -transfuse as needed - per heme/onc 10. Chronic pain syndrome: patient with metastasis -continue pain management 11. UTI: -abx per sensitivity/ID 12. Leukocytosis: 2/2 multifactorial: bacteremia, uti, wounds, sbo -abx per sensitivity -supportive 13. Chronic urinary retention with Story -perineal care -story care 14. Severe hyponatremia -per renal -judicious fluids Patient seen and examined in collaboration with Dr. Christian Sinclair. Thank you. Problems: Subjective 24 Hr Interval Summary More awake and responsive today. Continues in ICU on pressors, however being titrated down. Continues to have large ngt output (green). Mod abdominal discomfort. No flatus/bm. No n/v/dysuria, congested cough, sob, dizziness, excessive wound drainage. Exam/Review of Systems Vital Signs Vitals Vital Signs Date Time Temp Pulse Resp B/P Pulse Ox O2 Delivery O2 Flow Rate FiO2 02/14/17 11:45 77 17 108/69 100 Mechanical Ventilator Trach Collar 02/14/17 11:44 30 02/14/17 08:00 97.1 Intake and Output 02/13/17 02/13/17 02/14/17 15:00 23:00 07:00 Intake Total 1535 ml 1351.20 ml 748.12 ml Output Total 910 ml 2025 ml 2925 ml Balance 625 ml -673.80 ml -2176.88 ml Exam Free Text/Dictation Constitutional: awake, (trached), oriented, No distress Psych: anxious Head: atraumatic, normocephalic Eyes: nl conjunctiva, nl lids, nl sclera ENMT: mucosa pink and moist, nl external ears & nose, nl lips & teeth; ng tube Neck: non-tender, other (tracheostomy, non-reddened, no drainage noted), supple Respiratory: normal effort, no wheezing, min thin sputum Cardiovascular: nl pulses, regular rate and rhythm Gastrointestinal: non-tender, other (gtube, site non-tender, non-reddened), mod distention Musculoskeletal: nl extremities to inspection Extremities: normal pulses, extremity Edema +2 Neurological: nl mental status, No nl strength (gen weakness) Skin: No rash; wounds (sacral wound pink woundbed min slough with min/mod dry drainage) Results Result Diagram: 02/14/1752902/14/17529 JERRY SAHU NP Feb 14, 2017 14:13
--- NOTE | 2017-02-14 16:41 | CONS ---
Date/Time of Note Date/Time of Note DATE: 02/14/17 TIME: 16:37 Assessment/Plan Assessment/Plan Additional Assessment/Plan 1. 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 septic shock on levophed 3. Recurrent Multidrug Resistant Urinary tract infection 4. Sacral wound 5. Chronic resp failure 6.S/P Tracheostomy, S/p PEG tube placement 7. Lung CA- Squamous Cell CA 8. Hypercalcemia due to squamous cell CA of lung Plan: Continue current IV abx , ID following, renally dos abx Abdomen is slightly less distended, patient continues to be on Levophed drip, ventilatory support via tracheostomy, abdomen is tender, NG-tube to suction for stomach decompression, continue ICU care, continue TPN. S/p 3 % saline on02/09/17- s/p tolvaptan 15 mg PNGTUBE x 1 dose on 02/13/17- Na slightly improved to 129 today Ca high, ionised Ca is also high, but renal function has been normal , continue to monitor will follow up Consultation Date/Type/Reason Admit Date/Time Feb 01, 2017 at 15:50 Initial Consult Date 02/08/17 Type of Consultation: NEPHROLOGY Referring Provider: DRE LOBATO MD 24 HR Interval Summary Free Text/Dictation Na improved to 129 with one dose of Tolvaptan, BP stable, Ca high , Exam/Review of Systems Vital Signs Vitals Vital Signs Date Time Temp Pulse Resp B/P Pulse Ox O2 Delivery O2 Flow Rate FiO2 02/14/17 15:00 81 17 86/61 100 Mechanical Ventilator Trach Collar 02/14/17 12:00 97.5 02/14/17 11:44 30 Intake and Output 02/13/17 02/13/17 02/14/17 15:00 23:00 07:00 Intake Total 1535 ml 1351.20 ml 748.12 ml Output Total 910 ml 2025 ml 2925 ml Balance 625 ml -673.80 ml -2176.88 ml Exam GENERAL: frail, lethargic HEENT: NG tube in place, NECK: Supple. Tracheostomy present. CHEST: bilateral basilar rales HEART: S1, S2.tachycardia ABDOMEN: Soft, distended, +g tube in place EXTREMITIES: Without cyanosis. SKIN: With unstageable sacral wound. Results Result Diagram: 02/14/17 0530 02/14/17 0530 Results 24 hrs Laboratory Tests Test 02/13/17 17:20 02/13/17 17:43 02/13/17 18:41 02/13/17 18:56 Sodium Level 123 L Bedside Glucose 47 *L 98 95 Test 02/13/17 21:37 02/13/17 23:20 02/14/17 00:30 02/14/17 01:33 Bedside Glucose 67 L 109 104 Sodium Level 126 L Potassium Level 3.4 L Chloride Level 89 L Carbon Dioxide Level 21 Anion Gap 19 H Blood Urea Nitrogen 31 H Creatinine 0.86 Glucose Level 104 # Calcium Level 13.2 *H Phosphorus Level 4.7 Magnesium Level 1.9 Test 02/14/17 05:30 02/14/17 09:44 02/14/17 11:40 02/14/17 14:05 White Blood Count 21.3 H Red Blood Count 3.41 L Hemoglobin 9.3 L Hematocrit 29.3 L Mean Corpuscular Volume 85.9 Mean Corpuscular Hemoglobin 27.3 L Mean Corpuscular Hemoglobin Concent 31.7 L Red Cell Distribution Width 16.9 H Platelet Count 356 Mean Platelet Volume 8.6 Neutrophils % 90.3 H Lymphocytes % 2.7 L Monocytes % 2.5 Eosinophils % 0.0 Basophils % 0.4 Nucleated Red Blood Cells % 0.0 Neutrophils # (Manual) 19.2 H Lymphocytes # 0.6 L Monocytes # 0.5 Eosinophils # 0.0 Basophils # 0.1 Nucleated Red Blood Cells # 0.0 Sodium Level 129 L Potassium Level 3.9 Chloride Level 92 L Carbon Dioxide Level 20 L Anion Gap 21 H Blood Urea Nitrogen 32 H Creatinine 0.91 Glucose Level 98 Bedside Glucose 105 143 143 Calcium Level 13.5 *H Phosphorus Level 5.0 H Magnesium Level 2.0 Albumin 2.6 L Prealbumin 3.5 L Triglycerides Level 43 Ionized Calcium (Measured) 1.9 H Medications Medications Current Medications Ondansetron HCl (Zofran Inj) 4 mg Q6H PRN IV NAUSEA AND/OR VOMITING Last administered on 02/05/17t 09:36; Admin Dose 4 MG; Start 02/01/17 at 22:30 Acetaminophen (Tylenol Tab) 650 mg Q6H PRN PO PAIN LEVEL 1-3 OR FEVER Last administered on 02/04/17 21:08; Admin Dose 650 MG; Start 02/01/17 at 22:30 Acetaminophen/ Hydrocodone Bitart ([place] (5/325)) 1 tab Q6H PRN PO MODERATE PAIN LEVEL 4-6 Last administered on 02/04/17 21:07; Admin Dose 1 TAB; Start at 22:30 Hydromorphone HCl (Dilaudid) 0.5 mg Q4H PRN IV SEVERE PAIN LEVEL 7-10 Last administered on 02/14/17 11:31; Admin Dose 0.5 MG; Start 02/01/17 at 22:30 Docusate Sodium (Colace) 100 mg Q12H PRN PO CONSTIPATION; Start 02/01/17 at 22: 30 Magnesium Hydroxide (Milk Of Mag) 30 ml DAILY PRN PO CONSTIPATION; Start at 22:30 Bisacodyl (Dulcolax) 5 mg DAILY PRN PO CONSTIPATION; Start 02/01/17 at 22:30 Zolpidem Tartrate (Ambien) 5 mg QHS PRN PO SLEEP; Start 02/01/17 at 22:30 Lansoprazole (Prevacid) 30 mg DAILY@06 GTB Last administered on 02/14/17 05:21 ; Admin Dose 30 MG; Start 02/02/17 at 06:00 Enoxaparin Sodium (Lovenox) 40 mg DAILY SC Last administered on 02/14/17 09:40 ; Admin Dose 40 MG; Start 02/02/17 at 09:00 Ascorbic Acid (Vitamin C) 500 mg BID GTB Last administered on 02/14/17 09:29; Admin Dose 500 MG; Start 02/02/17 at 09:00 Diazepam (Valium) 5 mg DAILY PRN GTB ANXIETY Last administered on 02/08/17 20: 27; Admin Dose 5 MG; Start 02/01/17 at 22:30 Duloxetine HCl (Cymbalta) 20 mg DAILY GTB Last administered on 02/14/17 09:29 ; Admin Dose 20 MG; Start 02/02/17 at 09:00 Multivitamins Therapeutic (Theragran) 1 tab DAILY GTB Last administered on 02/14 09:30; Admin Dose 1 TAB; Start 02/02/17 at 09:00 Zinc Sulfate (Zinc Sulfate) 220 mg DAILY GTB Last administered on 02/14/17 09: 29; Admin Dose 220 MG; Start 02/02/17 at 09:00 Lactobacillus Acidophilus (Florajen3 Capsule) 1 each TID NGT Last administered on 02/14/17 14:00; Admin Dose 1 EACH; Start 02/02/17 at 09:00 Lactulose (Enulose) 20 gm BID PO Last administered on 02/14/17 09:30; Admin Dose 20 GM; Start 02/02/17 at 09:00 Collagenase (Santyl) 1 applic DAILY TOP Last administered on 02/14/17 09:38; Admin Dose 1 APPLIC; Start 02/02/17 at 09:00 Collagenase 1 applic 1 applic PRN PRN TOP PRN; Start 02/02/17 at 04:00 Linezolid 300 ml @ 300 mls/hr Q12 IVPB Last administered on 02/14/17 09:13; Admin Dose 300 MLS/HR; Start 02/09/17 at 15:00 Metronidazole 100 ml @ 100 mls/hr Q8 IVPB Last administered on 02/14/17 14:00 ; Admin Dose 100 MLS/HR; Start 02/09/17 at 14:00 Norepinephrine 16 mg/Dextrose 500 ml @ 0 mls/hr TITRATE IV Last administered on 02/14/17 00:36; Admin Dose 48.75 MLS/HR; Start 02/10/17 at 17:30 Colistimethate Sodium/Sodium Chloride (Coly-Mycin/NS) 100 ml @ 200 mls/hr Q12H IVPB Last administered on 02/14/17 15:53; Admin Dose 200 MLS/HR; Start at 04:00 Sodium Hypochlorite (Dakin'S (1/4 Strength)) 1 applic DAILY IRR Last administered on 02/14/17 09:37; Admin Dose 1 APPLIC; Start 02/10/17 at 13:30 IV Flush (NS 10 ml) 10 ml PRN PRN IV FLUSH LINE; Start 02/10/17 at 15:30 Mupirocin (Bactroban) 1 applic BID TOP Last administered on 02/14/17 09:38; Admin Dose 1 APPLIC; Start 02/11/17 at 14:00 Dextrose 25 ml 25 ml IACHS PRN IV DECREASED GLUCOSE Last administered on 21:45; Admin Dose 25 ML; Start 02/13/17 at 08:30 Total Parenteral Nutrition (Tpn) 1,000 ml @ 60 mls/hr [id number] IV Last administered on 02/14/17 09:18; Admin Dose 60 MLS/HR; Start 02/13/17 at 16:00 Dextrose 50 ml 50 ml IV PRN IV DECREASED GLUCOSE Last administered on 18:07; Admin Dose 50 ML; Start 02/13/17 at 14:30 Phenylephrine HCl/ Dextrose (Mane-Syneph/D5W) 500 ml @ 75 mls/hr TITRATE IV ; Start 02/13/17 at 16:00 Fentanyl (Duragesic 25 Mcg/Hr Patch) 1 patch Q72H TRANSDERM ; Start 02/14/17 at 15:30 Diagnostic Test (Pha) (Accu-Chek) 1 ea Q6 XX ; Start 02/14/17 at 18:00 DIONNE SAUCEDA MD Feb 14, 2017 16:40
--- NOTE | 2017-02-14 19:27 | CONS ---
Date/Time of Note Date/Time of Note DATE: 02/14/17 TIME: 19:25 Assessment/Plan Assessment/Plan Chief Complaint/Hosp Course -Anemia, POST PRBC transfuse packed red blood cells as needed continue to monitor H&H. COMPLEX, MULTIFACTORIAL -Left lung squamous carcinoma, NOW WITH POS LIVER METS supportive care no aggressive treatment planned HYPERCALCEMIA AREDIA - SBO NOW ON CONSERVATIVE MANAGEMENT -Sepsis, most likely secondary to urinary tract infection and possible postobstructive pneumonia. Dr. Coleman is following infection disease consultation, follow-up on cultures, continue antibiotics per ID. -Hyponatremia, nephrology f-up, continue IV fluids per renal. -Ventilator dependent respiratory failure with tracheostomy, continue breathing treatments. -COPD -Dysphagia with PEG -History of cardiopulmonary arrest -Multiple wounds present on admission, that is post debridement at last admission. -Hypothyroidism -Chronic urinary retention with George catheter PROGNOSIS- POOR Problems: Consultation Date/Type/Reason Admit Date/Time Feb 01, 2017 at 15:50 Initial Consult Date 02/08/17 Type of Consultation: hemeon Referring Provider: DRE LOBATO MD 24 HR Interval Summary Free Text/Dictation all noted increased CA noted Exam/Review of Systems Vital Signs Vitals Vital Signs Date Time Temp Pulse Resp B/P Pulse Ox O2 Delivery O2 Flow Rate FiO2 02/14/17 19:00 76 21 87/59 100 02/14/17 18:45 Mechanical Ventilator Trach Collar 02/14/17 17:35 30 02/14/17 16:00 97.3 Intake and Output 02/13/17 02/13/17 02/14/17 15:00 23:00 07:00 Intake Total 1535 ml 1351.20 ml 748.12 ml Output Total 910 ml 2025 ml 2925 ml Balance 625 ml -673.80 ml -2176.88 ml Exam Constitutional: awake, (trached), oriented, No distress Psych: anxious Head: atraumatic, normocephalic Eyes: nl conjunctiva, nl lids, nl sclera ENMT: mucosa pink and moist, nl external ears & nose, nl lips & teeth; ng tube Neck: non-tender, other (tracheostomy, non-reddened, no drainage noted), supple Respiratory: normal effort, no wheezing Cardiovascular: nl pulses, regular rate and rhythm Gastrointestinal: non-tender, other (gtube, site non-tender, non-reddened), mod distention, soft Musculoskeletal: nl extremities to inspection Extremities: normal pulses, extremity Edema +2 Neurological: nl mental status, No nl strength (gen weakness) Skin: No rash; wounds (sacral wound with min/mod dry drainage) Results Result Diagram: 02/14/17 0530 02/14/17 0530 Results 24 hrs Laboratory Tests Test 02/13/17 21:37 02/13/17 23:20 02/14/17 00:30 02/14/17 01:33 Bedside Glucose 67 L 109 104 Sodium Level 126 L Potassium Level 3.4 L Chloride Level 89 L Carbon Dioxide Level 21 Anion Gap 19 H Blood Urea Nitrogen 31 H Creatinine 0.86 Glucose Level 104 # Calcium Level 13.2 *H Phosphorus Level 4.7 Magnesium Level 1.9 Test 02/14/17 05:30 02/14/17 09:44 02/14/17 11:40 02/14/17 14:05 White Blood Count 21.3 H Red Blood Count 3.41 L Hemoglobin 9.3 L Hematocrit 29.3 L Mean Corpuscular Volume 85.9 Mean Corpuscular Hemoglobin 27.3 L Mean Corpuscular Hemoglobin Concent 31.7 L Red Cell Distribution Width 16.9 H Platelet Count 356 Mean Platelet Volume 8.6 Neutrophils % 90.3 H Lymphocytes % 2.7 L Monocytes % 2.5 Eosinophils % 0.0 Basophils % 0.4 Nucleated Red Blood Cells % 0.0 Neutrophils # (Manual) 19.2 H Lymphocytes # 0.6 L Monocytes # 0.5 Eosinophils # 0.0 Basophils # 0.1 Nucleated Red Blood Cells # 0.0 Sodium Level 129 L Potassium Level 3.9 Chloride Level 92 L Carbon Dioxide Level 20 L Anion Gap 21 H Blood Urea Nitrogen 32 H Creatinine 0.91 Glucose Level 98 Bedside Glucose 105 143 143 Calcium Level 13.5 *H Phosphorus Level 5.0 H Magnesium Level 2.0 Albumin 2.6 L Prealbumin 3.5 L Triglycerides Level 43 Ionized Calcium (Measured) 1.9 H Test 02/14/17 17:31 Bedside Glucose 132 Medications Medications Current Medications Ondansetron HCl (Zofran Inj) 4 mg Q6H PRN IV NAUSEA AND/OR VOMITING Last administered on 02/05/17t 09:36; Admin Dose 4 MG; Start 02/01/17 at 22:30 Acetaminophen (Tylenol Tab) 650 mg Q6H PRN PO PAIN LEVEL 1-3 OR FEVER Last administered on 02/04/17 21:08; Admin Dose 650 MG; Start 02/01/17 at 22:30 Acetaminophen/ Hydrocodone Bitart ([place] (5/325)) 1 tab Q6H PRN PO MODERATE PAIN LEVEL 4-6 Last administered on 02/04/17 21:07; Admin Dose 1 TAB; Start at 22:30 Hydromorphone HCl (Dilaudid) 0.5 mg Q4H PRN IV SEVERE PAIN LEVEL 7-10 Last administered on 02/14/17 11:31; Admin Dose 0.5 MG; Start 02/01/17 at 22:30 Docusate Sodium (Colace) 100 mg Q12H PRN PO CONSTIPATION; Start 02/01/17 at 22: 30 Magnesium Hydroxide (Milk Of Mag) 30 ml DAILY PRN PO CONSTIPATION; Start at 22:30 Bisacodyl (Dulcolax) 5 mg DAILY PRN PO CONSTIPATION; Start 02/01/17 at 22:30 Zolpidem Tartrate (Ambien) 5 mg QHS PRN PO SLEEP; Start 02/01/17 at 22:30 Lansoprazole (Prevacid) 30 mg DAILY@06 GTB Last administered on 02/14/17 05:21 ; Admin Dose 30 MG; Start 02/02/17 at 06:00 Enoxaparin Sodium (Lovenox) 40 mg DAILY SC Last administered on 02/14/17 09:40 ; Admin Dose 40 MG; Start 02/02/17 at 09:00 Ascorbic Acid (Vitamin C) 500 mg BID GTB Last administered on 02/14/17 09:29; Admin Dose 500 MG; Start 02/02/17 at 09:00 Diazepam (Valium) 5 mg DAILY PRN GTB ANXIETY Last administered on 02/08/17 20: 27; Admin Dose 5 MG; Start 02/01/17 at 22:30 Duloxetine HCl (Cymbalta) 20 mg DAILY GTB Last administered on 02/14/17 09:29 ; Admin Dose 20 MG; Start 02/02/17 at 09:00 Multivitamins Therapeutic (Theragran) 1 tab DAILY GTB Last administered on 02/14 09:30; Admin Dose 1 TAB; Start 02/02/17 at 09:00 Zinc Sulfate (Zinc Sulfate) 220 mg DAILY GTB Last administered on 02/14/17 09: 29; Admin Dose 220 MG; Start 02/02/17 at 09:00 Lactobacillus Acidophilus (Florajen3 Capsule) 1 each TID NGT Last administered on 02/14/17 14:00; Admin Dose 1 EACH; Start 02/02/17 at 09:00 Lactulose (Enulose) 20 gm BID PO Last administered on 02/14/17 09:30; Admin Dose 20 GM; Start 02/02/17 at 09:00 Collagenase (Santyl) 1 applic DAILY TOP Last administered on 02/14/17 09:38; Admin Dose 1 APPLIC; Start 02/02/17 at 09:00 Collagenase 1 applic 1 applic PRN PRN TOP PRN; Start 02/02/17 at 04:00 Linezolid 300 ml @ 300 mls/hr Q12 IVPB Last administered on 02/14/17 09:13; Admin Dose 300 MLS/HR; Start 02/09/17 at 15:00 Metronidazole 100 ml @ 100 mls/hr Q8 IVPB Last administered on 02/14/17 14:00 ; Admin Dose 100 MLS/HR; Start 02/09/17 at 14:00 Norepinephrine 16 mg/Dextrose 500 ml @ 0 mls/hr TITRATE IV Last administered on 02/14/17 00:36; Admin Dose 48.75 MLS/HR; Start 02/10/17 at 17:30 Colistimethate Sodium/Sodium Chloride (Coly-Mycin/NS) 100 ml @ 200 mls/hr Q12H IVPB Last administered on 02/14/17 15:53; Admin Dose 200 MLS/HR; Start at 04:00 Sodium Hypochlorite (Dakin'S (1/4 Strength)) 1 applic DAILY IRR Last administered on 02/14/17 09:37; Admin Dose 1 APPLIC; Start 02/10/17 at 13:30 IV Flush (NS 10 ml) 10 ml PRN PRN IV FLUSH LINE; Start 02/10/17 at 15:30 Mupirocin (Bactroban) 1 applic BID TOP Last administered on 02/14/17 09:38; Admin Dose 1 APPLIC; Start 02/11/17 at 14:00 Dextrose 25 ml 25 ml IACHS PRN IV DECREASED GLUCOSE Last administered on 21:45; Admin Dose 25 ML; Start 02/13/17 at 08:30 Total Parenteral Nutrition (Tpn) 1,000 ml @ 60 mls/hr [id number] IV Last administered on 02/14/17 09:18; Admin Dose 60 MLS/HR; Start 02/13/17 at 16:00 Dextrose 50 ml 50 ml IV PRN IV DECREASED GLUCOSE Last administered on 18:07; Admin Dose 50 ML; Start 02/13/17 at 14:30 Phenylephrine HCl/ Dextrose (Mane-Syneph/D5W) 500 ml @ 75 mls/hr TITRATE IV ; Start 02/13/17 at 16:00 Fentanyl (Duragesic 25 Mcg/Hr Patch) 1 patch Q72H TRANSDERM Last administered on 02/14/17 17:28; Admin Dose 1 PATCH; Start 02/14/17 at 15:30 Diagnostic Test (Pha) (Accu-Chek) 1 ea Q6 XX ; Start 02/14/17 at 18:00 DYLLAN CARRION MD Feb 14, 2017 19:27
[2017-02-14] MEDS ORDERED: PAMIDRONATE 90 MG in SOD CHLORIDE 0.9% 500 ML IV ONE (19:30)
[2017-02-15] VITALS (51 sets, daily range): BP systolic 81–130; BP diastolic 63–91; PULSE 69–140; RESP 14–25
[2017-02-15] MEDS: ALBUTEROL 18 GM INHALER INH SCH ×4 (01:16→20:56)
[2017-02-15] MEDS: IPRATROPIUM (HFA) 12.9 GM INHALER INH SCH ×4 (01:16→20:56)
[2017-02-15] MEDS: TPN 1,000 ML IV SCH ×2 (01:31→20:45)
[2017-02-15] MEDS: HYDROmorphONE 1 MG/ML SYG IV PRN (01:31)
--- NOTE | 2017-02-15 02:46 | PN ---
DATE: 02/14/2017 SUBJECTIVE DATA: The patient is seen by me because of abdominal distention. A workup has been done. A CT scan of the abdomen shows possible small bowel obstruction. Currently, patient has been evaluated by the surgeon and I do not see any surgical note here. According to the nursing staff, surgeon has considered that patient is not a surgical candidate for a small bowel obstruction surgery. OBJECTIVE DATA: GENERAL: The patient is alert. VITAL SIGNS: Blood pressure is 118/88, pulse is 82. CARDIAC: Normal heart sounds. RESPIRATORY: Normal breath sounds. ABDOMEN: Showed soft abdomen with minimal distention. LABORATORY: WBC count is 21,300, hemoglobin 9.3. The potassium is 3.9, sodium is 129, BUN is 32, creatinine 0.91. Nasogastric tube has drained 700 cc of green liquid today. CLINICAL IMPRESSION: 1. The patient seems to be having a partial small bowel obstruction. No bowel movement today. Patient apparently not a surgical candidate. 2. Other problems include sepsis. 3. Electrolyte imbalance. 4. Left lung squamous cell carcinoma. 5. Anemia. 6. Respiratory failure. She is a ventilator-dependent. 7. Dysphagia, status post percutaneous endoscopic gastrostomy. 8. History of cardiopulmonary arrest. PLAN: Continue conservative management. Dictated By: Malik Gonzales MD /[email or web address] /Document#: [id number] ; Dr. Dozier
[2017-02-15 05:57] LABS: ABNORMAL IP MESSAGE 1; HEMATOCRIT 26.2 % (37.0-47.0); HEMOGLOBIN 8.2 g/dl (12.0-16.0); MEAN CORPUSCULAR HEMOGLOBIN 26.8 pg (29.0-33.0); MEAN CORPUSCULAR HGB CONC 31.3 g/dl (32.0-37.0); MEAN CORPUSCULAR VOLUME 85.6 fl (82.0-101.0); MEAN PLATELET VOLUME 8.6 fl (7.4-10.4); PLATELET COUNT 292 10^3/UL (140-415); RED BLOOD COUNT 3.06 10^6/ul (4.20-5.40); WHITE BLOOD COUNT 20.2 10^3/ul (4.8-10.8)
[2017-02-15 06:01] LABS: POSITIVE DIFF @See below
[2017-02-15 06:12] LABS: CREATININE 0.89 mg/dl (0.44-1.00); POTASSIUM 3.5 mmol/L (3.5-5.1)
[2017-02-15 06:29] LABS: CALCIUM 13.4 mg/dl (8.4-10.2)
[2017-02-15] MEDS: metroNIDAZOLE 500 MG/NS (PMX) 100 ML IVPB SCH ×3 (06:29→21:28)
[2017-02-15] MEDS: COLISTIMETHATE 100 MG in SOD CHLORIDE 0.9% 100 ML IVPB SCH ×2 (06:29→16:00)
[2017-02-15] MEDS: LANSOPRAZOLE 30 MG CAP GTB SCH (06:29)
[2017-02-15] MEDS: ACCU-CHEK XX SCH ×5 (06:33→23:52)
[2017-02-15] MEDS: L ACIDOPHIL/B LACTIS/B LONGUM CAPSULE NGT SCH ×3 (09:00→20:38)
[2017-02-15] MEDS: MULTIVITAMINS THERAPEUTIC TAB GTB SCH (09:00)
[2017-02-15] MEDS: LACTULOSE 30ML CUP PO SCH ×2 (09:00→20:38)
[2017-02-15] MEDS: ZINC SULFATE 220 MG CAP GTB SCH (09:00)
[2017-02-15] MEDS: ASCORBIC ACID 500 MG TAB GTB SCH ×2 (09:00→20:38)
[2017-02-15] MEDS: DULOXETINE 20 MG CAP DR GTB SCH (09:00)
--- NOTE | 2017-02-15 09:11 | CONS ---
Date/Time of Note Date/Time of Note DATE: 02/15/17 TIME: 09:08 Assessment/Plan Assessment/Plan Additional Assessment/Plan 1. 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 septic shock on levophed 3. Recurrent Multidrug Resistant Urinary tract infection 4. Sacral wound 5. Chronic resp failure 6.S/P Tracheostomy, S/p PEG tube placement 7. Lung CA- Squamous Cell CA 8. Hypercalcemia due to squamous cell CA of lung Plan: Continue current IV abx , ID following, renally dos abx Abdomen is slightly less distended, patient continues to be on Levophed drip, ventilatory support via tracheostomy, abdomen is tender, NG-tube to suction for stomach decompression, continue ICU care, continue TPN. S/p 3 % saline on02/09/17- s/p tolvaptan 15 mg PNGTUBE x 1 dose on 02/13/17- Na slightly improved to 132 today Ca high 13.4, ionised Ca is also high 1.9, renal function has been normal , will give Pamidronate 30mg IV x 1 dose today and monitor Ca will follow up Consultation Date/Type/Reason Admit Date/Time Feb 01, 2017 at 15:50 Initial Consult Date 02/08/17 Type of Consultation: NEPHROLOGY Referring Provider: DRE LOBATO MD 24 HR Interval Summary Free Text/Dictation no change in condition, pt is chemical code only, BP stable , Ca still high, renal function normal Exam/Review of Systems Vital Signs Vitals Vital Signs Date Time Temp Pulse Resp B/P Pulse Ox O2 Delivery O2 Flow Rate FiO2 02/15/17 07:32 81 16 100 30 02/15/17 06:30 105/67 02/15/17 06:00 Mechanical Ventilator 02/15/17 04:30 96.5 Intake and Output 02/14/17 02/14/17 02/15/17 14:59 22:59 06:59 Intake Total 723.4375 ml 680 ml 1420 ml Output Total 1775 ml 1365 ml 1110 ml Balance -1051.5625 ml -685 ml 310 ml Exam GENERAL: frail, lethargic HEENT: NG tube in place, NECK: Supple. Tracheostomy present. CHEST: bilateral basilar rales HEART: S1, S2.tachycardia ABDOMEN: Soft, distended, +g tube in place EXTREMITIES: Without cyanosis. SKIN: With unstageable sacral wound. Results Result Diagram: 02/15/17 0430 02/15/17 043 Results 24 hrs Laboratory Tests Test 02/14/17 09:44 02/14/17 11:40 02/14/17 14:05 02/14/17 17:31 Bedside Glucose 143 143 132 Ionized Calcium (Measured) 1.9 H Test 02/15/17 00:37 02/15/17 04:30 02/15/17 06:35 Bedside Glucose 139 129 White Blood Count 20.2 H Red Blood Count 3.06 L Hemoglobin 8.2 L Hematocrit 26.2 L Mean Corpuscular Volume 85.6 Mean Corpuscular Hemoglobin 26.8 L Mean Corpuscular Hemoglobin Concent 31.3 L Red Cell Distribution Width 17.0 H Platelet Count 292 Mean Platelet Volume 8.6 Neutrophils % 83.0 H Lymphocytes % 4.7 L Monocytes % 6.6 Eosinophils % 0.0 Basophils % 0.2 Nucleated Red Blood Cells % 0.0 Neutrophils # (Manual) 16.8 H Lymphocytes # 0.9 Monocytes # 1.3 H Eosinophils # 0.0 Basophils # 0.0 Nucleated Red Blood Cells # 0.0 Sodium Level 132 L Potassium Level 3.5 Chloride Level 95 L Carbon Dioxide Level 24 Anion Gap 17 H Blood Urea Nitrogen 42 H Creatinine 0.89 Glucose Level 119 Calcium Level 13.4 *H Medications Medications Current Medications Ondansetron HCl (Zofran Inj) 4 mg Q6H PRN IV NAUSEA AND/OR VOMITING Last administered on 02/05/17 09:36; Admin Dose 4 MG; Start 02/01/17 at 22:30 Acetaminophen (Tylenol Tab) 650 mg Q6H PRN PO PAIN LEVEL 1-3 OR FEVER Last administered on 02/04/17 21:08; Admin Dose 650 MG; Start 02/01/17 at 22:30 Acetaminophen/ Hydrocodone Bitart ([place] (5/325)) 1 tab Q6H PRN PO MODERATE PAIN LEVEL 4-6 Last administered on 02/04/17 21:07; Admin Dose 1 TAB; Start at 22:30 Hydromorphone HCl (Dilaudid) 0.5 mg Q4H PRN IV SEVERE PAIN LEVEL 7-10 Last administered on 02/15/17 01:31; Admin Dose 0.5 MG; Start 02/01/17 at 22:30 Docusate Sodium (Colace) 100 mg Q12H PRN PO CONSTIPATION; Start 02/01/17 at 22: 30 Magnesium Hydroxide (Milk Of Mag) 30 ml DAILY PRN PO CONSTIPATION; Start at 22:30 Bisacodyl (Dulcolax) 5 mg DAILY PRN PO CONSTIPATION; Start 02/01/17 at 22:30 Zolpidem Tartrate (Ambien) 5 mg QHS PRN PO SLEEP; Start 02/01/17 at 22:30 Lansoprazole (Prevacid) 30 mg DAILY@06 GTB Last administered on 02/15/17 06:29 ; Admin Dose 30 MG; Start 02/02/17 at 06:00 Enoxaparin Sodium (Lovenox) 40 mg DAILY SC Last administered on 02/14/17 09:40 ; Admin Dose 40 MG; Start 02/02/17 at 09:00 Ascorbic Acid (Vitamin C) 500 mg BID GTB Last administered on 02/14/17 21:47; Admin Dose 500 MG; Start 02/02/17 at 09:00 Diazepam (Valium) 5 mg DAILY PRN GTB ANXIETY Last administered on 02/08/17 20: 27; Admin Dose 5 MG; Start 02/01/17 at 22:30 Duloxetine HCl (Cymbalta) 20 mg DAILY GTB Last administered on 02/14/17 09:29 ; Admin Dose 20 MG; Start 02/02/17 at 09:00 Multivitamins Therapeutic (Theragran) 1 tab DAILY GTB Last administered on 02/14 09:30; Admin Dose 1 TAB; Start 02/02/17 at 09:00 Zinc Sulfate (Zinc Sulfate) 220 mg DAILY GTB Last administered on 02/14/17 09: 29; Admin Dose 220 MG; Start 02/02/17 at 09:00 Lactobacillus Acidophilus (Florajen3 Capsule) 1 each TID NGT Last administered on 02/14/17 21:47; Admin Dose 1 EACH; Start 02/02/17 at 09:00 Lactulose (Enulose) 20 gm BID PO Last administered on 02/14/17 21:47; Admin Dose 20 GM; Start 02/02/17 at 09:00 Collagenase (Santyl) 1 applic DAILY TOP Last administered on 02/14/17 09:38; Admin Dose 1 APPLIC; Start 02/02/17 at 09:00 Collagenase 1 applic 1 applic PRN PRN TOP PRN; Start 02/02/17 at 04:00 Linezolid 300 ml @ 300 mls/hr Q12 IVPB Last administered on 02/14/17 21:48; Admin Dose 300 MLS/HR; Start 02/09/17 at 15:00 Metronidazole 100 ml @ 100 mls/hr Q8 IVPB Last administered on 02/15/17 06:29 ; Admin Dose 100 MLS/HR; Start 02/09/17 at 14:00 Norepinephrine 16 mg/Dextrose 500 ml @ 0 mls/hr TITRATE IV Last administered on 02/14/17 00:36; Admin Dose 48.75 MLS/HR; Start 02/10/17 at 17:30 Colistimethate Sodium/Sodium Chloride (Coly-Mycin/NS) 100 ml @ 200 mls/hr Q12H IVPB Last administered on 02/15/17 06:29; Admin Dose 200 MLS/HR; Start at 04:00 Sodium Hypochlorite (Dakin'S (1/4 Strength)) 1 applic DAILY IRR Last administered on 02/14/17 09:37; Admin Dose 1 APPLIC; Start 02/10/17 at 13:30 IV Flush (NS 10 ml) 10 ml PRN PRN IV FLUSH LINE; Start 02/10/17 at 15:30 Mupirocin (Bactroban) 1 applic BID TOP Last administered on 02/14/17 21:50; Admin Dose 1 APPLIC; Start 02/11/17 at 14:00 Dextrose 25 ml 25 ml IACHS PRN IV DECREASED GLUCOSE Last administered on 21:45; Admin Dose 25 ML; Start 02/13/17 at 08:30 Total Parenteral Nutrition (Tpn) 1,000 ml @ 60 mls/hr [id number] IV Last administered on 02/15/17 01:31; Admin Dose 60 MLS/HR; Start 02/13/17 at 16:00 Dextrose 50 ml 50 ml IV PRN IV DECREASED GLUCOSE Last administered on 18:07; Admin Dose 50 ML; Start 02/13/17 at 14:30 Phenylephrine HCl/ Dextrose (Mane-Syneph/D5W) 500 ml @ 75 mls/hr TITRATE IV ; Start 02/13/17 at 16:00 Fentanyl (Duragesic 25 Mcg/Hr Patch) 1 patch Q72H TRANSDERM Last administered on 02/14/17 17:28; Admin Dose 1 PATCH; Start 02/14/17 at 15:30 Diagnostic Test (Pha) 1 ea 1 ea Q6 XX Last administered on 02/15/17 06:33; Admin Dose 1 EA; Start 02/14/17 at 18:00 Pamidronate Disodium/Sodium Chloride ([place]/NS) 510 ml @ 83.333 mls/ hr Q6H8M IV ; Start 02/15/17 at 10:00; Stop 02/15/17 at 16:00 DIONNE SAUCEDA MD Feb 15, 2017 09:11
[2017-02-15] MEDS ORDERED: PAMIDRONATE 30 MG in SOD CHLORIDE 0.9% 500 ML IV SCH (10:00)
[2017-02-15] MEDS: MUPIROCIN 2% 22 GM OINT TOP SCH ×2 (10:12→20:45)
[2017-02-15] MEDS: LINEZOLID 600 MG/D5W (PMX) 300 ML IVPB SCH ×2 (10:12→20:44)
[2017-02-15] MEDS: SODIUM HYPOCHLORITE 0.125% 473 ML BTL IRR SCH (10:13)
[2017-02-15] MEDS: COLLAGENASE 30 GM TUBE TOP SCH (10:13)
[2017-02-15] MEDS: ENOXAPARIN 40 MG/0.4 ML SYG SC SCH (10:15)
[2017-02-15 10:35] LABS: MONOCYTE # 1.2 10^3/ul (0.3-0.9)
--- NOTE | 2017-02-15 11:08 | CONS ---
Date/Time of Note Date/Time of Note DATE: 02/15/17 TIME: 11:05 Assessment/Plan Assessment/Plan Additional Assessment/Plan Ventilator setting; AC of 14, tidal volume 450, PEEP of 5, 30% FiO2. Assessment and recommendations; 1. Patient admitted for sepsis from multiple decubitus ulcers growing multiple organisms. Currently on appropriate antibiotic regimen. 2. Chronic respiratory failure. 3. COPD. Next 4. Likely left lower lobe lung malignancy, patient has been too unstable to go any kind of workup. 5. Severe generalized deconditioning. 6. Ileus. Continued on TPN . Continue current supportive care. Consultation Date/Type/Reason Admit Date/Time Feb 01, 2017 at 15:50 Initial Consult Date 02/09/17 Type of Consultation: Pulmonary/critical care Referring Provider: DRE LOBATO MD 24 HR Interval Summary Free Text/Dictation Patient's condition remains stable. Has improved hemodynamically and not requiring any further pressor support. General exam; elderly woman, on ventilator via tracheostomy, awake. Currently in no distress. Exam/Review of Systems Vital Signs Vitals Vital Signs Date Time Temp Pulse Resp B/P Pulse Ox O2 Delivery O2 Flow Rate FiO2 02/15/17 09:00 81 16 111/71 100 Mechanical Ventilator 02/15/17 08:00 96.0 02/15/17 07:32 30 Intake and Output 02/14/17 02/14/17 02/15/17 15:00 23:00 07:00 Intake Total 864.6875 ml 980 ml 1120 ml Output Total 1875 ml 1315 ml 1060 ml Balance -1010.3125 ml -335 ml 60 ml Exam HEENT exam; supple neck, no JVD. No lymphadenopathy. Midline trachea. No thyromegaly. Patient has a multiple carious teeth. Tracheostomy in place. Insertion site is clean. Chest exam; diminished but clear breath sounds. S1-S2 audible, no murmurs. Regular rhythm. Abdomen exam; soft, slightly protuberant. G-tube in place. Bowel sounds are absent. Extremity exam; no peripheral edema. Back examination; dressing applied over sacrum. LEGAL SERVICES PROFESSIONAL exam; patient is awake and follows simple commands. Patient however has severe generalized muscular weakness. Results Result Diagram: 02/15/17 0430 02/15/17 0430 Results 24 hrs Laboratory Tests Test 02/14/17 11:40 02/14/17 14:05 02/14/17 17:31 02/15/17 00:37 Ionized Calcium (Measured) 1.9 H Bedside Glucose 143 132 139 Test 02/15/17 04:30 02/15/17 06:35 White Blood Count 20.2 H Red Blood Count 3.06 L Hemoglobin 8.2 L Hematocrit 26.2 L Mean Corpuscular Volume 85.6 Mean Corpuscular Hemoglobin 26.8 L Mean Corpuscular Hemoglobin Concent 31.3 L Red Cell Distribution Width 17.0 H Platelet Count 292 Mean Platelet Volume 8.6 Neutrophils % Segmented Neutrophils % (Manual) 87 H Band Neutrophils % (Manual) 2 Lymphocytes % Lymphocytes % (Manual) 5 L Monocytes % Monocytes % (Manual) 6 Eosinophils % Basophils % Nucleated Red Blood Cells % 0.0 Neutrophils # (Manual) 17.7 H Band Neutrophils # 0.4 Absolute Lymphocytes (Manual) Pending Lymphocytes # 1.0 Monocytes # 1.2 H Absolute Monocytes (Manual) Pending Eosinophils # Basophils # Nucleated Red Blood Cells # Sodium Level 132 L Potassium Level 3.5 Chloride Level 95 L Carbon Dioxide Level 24 Anion Gap 17 H Blood Urea Nitrogen 42 H Creatinine 0.89 Glucose Level 119 Calcium Level 13.4 *H Bedside Glucose 129 Medications Medications Current Medications Ondansetron HCl (Zofran Inj) 4 mg Q6H PRN IV NAUSEA AND/OR VOMITING Last administered on 02/05/17 09:36; Admin Dose 4 MG; Start 02/01/17 at 22:30 Acetaminophen (Tylenol Tab) 650 mg Q6H PRN PO PAIN LEVEL 1-3 OR FEVER Last administered on 02/04/17 21:08; Admin Dose 650 MG; Start 02/01/17 at 22:30 Acetaminophen/ Hydrocodone Bitart ([place] (5/325)) 1 tab Q6H PRN PO MODERATE PAIN LEVEL 4-6 Last administered on 02/04/17 21:07; Admin Dose 1 TAB; Start at 22:30 Hydromorphone HCl (Dilaudid) 0.5 mg Q4H PRN IV SEVERE PAIN LEVEL 7-10 Last administered on 02/15/17 01:31; Admin Dose 0.5 MG; Start 02/01/17 at 22:30 Docusate Sodium (Colace) 100 mg Q12H PRN PO CONSTIPATION; Start 02/01/17 at 22: 30 Magnesium Hydroxide (Milk Of Mag) 30 ml DAILY PRN PO CONSTIPATION; Start at 22:30 Bisacodyl (Dulcolax) 5 mg DAILY PRN PO CONSTIPATION; Start 02/01/17 at 22:30 Zolpidem Tartrate (Ambien) 5 mg QHS PRN PO SLEEP; Start 02/01/17 at 22:30 Lansoprazole (Prevacid) 30 mg DAILY@06 GTB Last administered on 02/15/17 06:29 ; Admin Dose 30 MG; Start 02/02/17 at 06:00 Enoxaparin Sodium (Lovenox) 40 mg DAILY SC Last administered on 02/15/17 10:15 ; Admin Dose 40 MG; Start 02/02/17 at 09:00 Ascorbic Acid (Vitamin C) 500 mg BID GTB Last administered on 02/14/17 21:47; Admin Dose 500 MG; Start 02/02/17 at 09:00 Diazepam (Valium) 5 mg DAILY PRN GTB ANXIETY Last administered on 02/08/17 20: 27; Admin Dose 5 MG; Start 02/01/17 at 22:30 Duloxetine HCl (Cymbalta) 20 mg DAILY GTB Last administered on 02/14/17 09:29 ; Admin Dose 20 MG; Start 02/02/17 at 09:00 Multivitamins Therapeutic (Theragran) 1 tab DAILY GTB Last administered on 02/14 09:30; Admin Dose 1 TAB; Start 02/02/17 at 09:00 Zinc Sulfate (Zinc Sulfate) 220 mg DAILY GTB Last administered on 02/14/17 09: 29; Admin Dose 220 MG; Start 02/02/17 at 09:00 Lactobacillus Acidophilus (Florajen3 Capsule) 1 each TID NGT Last administered on 02/14/17 21:47; Admin Dose 1 EACH; Start 02/02/17 at 09:00 Lactulose (Enulose) 20 gm BID PO Last administered on 02/14/17 21:47; Admin Dose 20 GM; Start 02/02/17 at 09:00 Collagenase (Santyl) 1 applic DAILY TOP Last administered on 02/15/17 10:13; Admin Dose 1 APPLIC; Start 02/02/17 at 09:00 Collagenase 1 applic 1 applic PRN PRN TOP PRN; Start 02/02/17 at 04:00 Linezolid 300 ml @ 300 mls/hr Q12 IVPB Last administered on 02/15/17 10:12; Admin Dose 300 MLS/HR; Start 02/09/17 at 15:00 Metronidazole 100 ml @ 100 mls/hr Q8 IVPB Last administered on 02/15/17 06:29 ; Admin Dose 100 MLS/HR; Start 02/09/17 at 14:00 Norepinephrine 16 mg/Dextrose 500 ml @ 0 mls/hr TITRATE IV Last administered on 02/14/17 00:36; Admin Dose 48.75 MLS/HR; Start 02/10/17 at 17:30 Colistimethate Sodium/Sodium Chloride (Coly-Mycin/NS) 100 ml @ 200 mls/hr Q12H IVPB Last administered on 02/15/17 06:29; Admin Dose 200 MLS/HR; Start at 04:00 Sodium Hypochlorite (Dakin'S (1/4 Strength)) 1 applic DAILY IRR Last administered on 02/15/17 10:13; Admin Dose 1 APPLIC; Start 02/10/17 at 13:30 IV Flush (NS 10 ml) 10 ml PRN PRN IV FLUSH LINE; Start 02/10/17 at 15:30 Mupirocin (Bactroban) 1 applic BID TOP Last administered on 02/15/17 10:12; Admin Dose 1 APPLIC; Start 02/11/17 at 14:00 Dextrose 25 ml 25 ml IACHS PRN IV DECREASED GLUCOSE Last administered on 21:45; Admin Dose 25 ML; Start 02/13/17 at 08:30 Total Parenteral Nutrition (Tpn) 1,000 ml @ 60 mls/hr [id number] IV Last administered on 02/15/17 01:31; Admin Dose 60 MLS/HR; Start 02/13/17 at 16:00 Dextrose 50 ml 50 ml IV PRN IV DECREASED GLUCOSE Last administered on 18:07; Admin Dose 50 ML; Start 02/13/17 at 14:30 Phenylephrine HCl/ Dextrose (Mane-Syneph/D5W) 500 ml @ 75 mls/hr TITRATE IV ; Start 02/13/17 at 16:00 Fentanyl (Duragesic 25 Mcg/Hr Patch) 1 patch Q72H TRANSDERM Last administered on 02/14/17 17:28; Admin Dose 1 PATCH; Start 02/14/17 at 15:30 Diagnostic Test (Pha) 1 ea 1 ea Q6 XX Last administered on 02/15/17 06:33; Admin Dose 1 EA; Start 02/14/17 at 18:00 Pamidronate Disodium/Sodium Chloride (Aredia/NS) 510 ml @ 83.333 mls/ hr Q6H8M IV ; Start 02/15/17 at 10:00; Stop 02/15/17 at 16:00 REGINE BUCKLEY Feb 15, 2017 11:08
--- NOTE | 2017-02-15 11:34 | RADRPT ---
PROCEDURE: Small bowel follow-through. CLINICAL INDICATION: Abdomen pain. Bowel obstruction. TECHNIQUE: Water-soluble contrast was administered orally and several spot and overhead radiograph s of the abdomen were obtained. COMPARISON: CT scan of the abdomen and pelvis dated 02/12/2017. FINDINGS: On the preliminary radiograph, nasogastric tube tip is in the stomach. There has been prior lower l umbar spine surgery with pedicle screws, connecting rods, 13 cages, and a screws. A gastrostomy tub e is noted in the stomach. The small bowel is diffusely dilated and there is marked dilution of the contrast on the delayed george ges. Delayed images were obtained at 10 hours, 19 hours, 26 hours and 32 hours. By 26 hours and 32 hours, there is almost no visualization of the contrast. IMPRESSION: 1. Dilated small bowel which may be due to obstruction or ileus. 2. Marked dilation of the contrast on the delayed images. Correlation with noncontrast CT scan of the abdomen and pelvis is advised. RPTAT: QQ .Eduardo Silva MD, MD Date Time Electronically viewed and signed by .Eduardo Silva MD, on 02/15/2017 11:33 .R/
--- NOTE | 2017-02-15 13:30 | PN ---
Date/Time of Note Date/Time of Note DATE: 02/15/17 TIME: 13:23 Assessment/Plan VTE Prophylaxis VTE Prophylaxis Intervention: other Lines/Catheters [facility] P[facility] Line Central line still needed: Yes Urinary Cath still in place: Yes Reason Cath still needed: urinary retention Assessment/Plan Assessment/Plan CHEMICAL CODE -Small bowel obstruction. Continue G-tube to low wall suctioning. Dr Gonzales is following in gastroenterology consultation. - sp CT Abdomen- result pending. fu -Sepsis, most likely secondary to urinary tract infection and possible postobstructive pneumonia. Dr. Coleman is following infection disease consultation, continue antibiotics per ID. -Hyponatremia, Dr. Zapata is following a nephrology consultation, continue IV fluids per renal. 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 -Ventilator dependent respiratory failure with tracheostomy, continue breathing treatments. 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 -Chronic urinary retention with George catheter -Chemical CODE STATUS Total critical care time spent is 30 mins. Further recommendations based on clinical course. Plan of care discussed with Dr. Dozier.Further recommendations based on clinical course. Plan of care discussed with Dr. Dozier. Subjective 24 Hr Interval Summary Constitutional: requiring IVF, requiring O2 Exam/Review of Systems Vital Signs Vitals Vital Signs Date Time Temp Pulse Resp B/P Pulse Ox O2 Delivery O2 Flow Rate FiO2 02/15/17 12:00 91 02/15/17 11:20 24 99 30 02/15/17 09:00 111/71 Mechanical Ventilator 02/15/17 08:00 96.0 Intake and Output 02/14/17 02/14/17 02/15/17 15:00 23:00 07:00 Intake Total 864.6875 ml 980 ml 1120 ml Output Total 1875 ml 1315 ml 1060 ml Balance -1010.3125 ml -335 ml 60 ml Exam alert, responses simple Qs. dw satff- sp CT abdomen- fu result, Constitutional: alert Respiratory: clear to auscultation, normal air movement Cardiovascular: nl pulses, regular rate and rhythm Gastrointestinal: non-tender, soft Musculoskeletal: muscle weakness Neurological: other Results Result Diagram: 02/15/1743402/15/17 043 Results 24 hrs Laboratory Tests Test 02/14/17 14:05 02/14/17 17:31 02/15/17 00:37 02/15/17 04:30 Bedside Glucose 143 132 139 Sodium Level 132 L Potassium Level 3.5 Chloride Level 95 L Carbon Dioxide Level 24 Anion Gap 17 H Blood Urea Nitrogen 42 H Creatinine 0.89 Glucose Level 119 Calcium Level 13.4 *H Test 02/15/17 04:35 02/15/17 06:35 02/15/17 12:30 White Blood Count 20.2 H Red Blood Count 3.06 L Hemoglobin 8.2 L Hematocrit 26.2 L Mean Corpuscular Volume 85.6 Mean Corpuscular Hemoglobin 26.8 L Mean Corpuscular Hemoglobin Concent 31.3 L Red Cell Distribution Width 17.0 H Platelet Count 292 Mean Platelet Volume 8.6 Neutrophils % Segmented Neutrophils % (Manual) 87 H Band Neutrophils % (Manual) 2 Lymphocytes % Lymphocytes % (Manual) 5 L Monocytes % Monocytes % (Manual) 6 Eosinophils % Basophils % Nucleated Red Blood Cells % 0.0 Neutrophils # (Manual) 17.7 H Band Neutrophils # 0.4 Absolute Lymphocytes (Manual) Pending Lymphocytes # 1.0 Monocytes # 1.2 H Absolute Monocytes (Manual) Pending Eosinophils # Basophils # Nucleated Red Blood Cells # Bedside Glucose 129 141 Medications Medications Current Medications Ondansetron HCl (Zofran Inj) 4 mg Q6H PRN IV NAUSEA AND/OR VOMITING Last administered on 02/05/17 09:36; Admin Dose 4 MG; Start 02/01/17 at 22:30 Acetaminophen (Tylenol Tab) 650 mg Q6H PRN PO PAIN LEVEL 1-3 OR FEVER Last administered on 02/04/17 21:08; Admin Dose 650 MG; Start 02/01/17 at 22:30 Acetaminophen/ Hydrocodone Bitart ([place] (5/325)) 1 tab Q6H PRN PO MODERATE PAIN LEVEL 4-6 Last administered on 02/04/17 21:07; Admin Dose 1 TAB; Start at 22:30 Hydromorphone HCl (Dilaudid) 0.5 mg Q4H PRN IV SEVERE PAIN LEVEL 7-10 Last administered on 02/15/17 01:31; Admin Dose 0.5 MG; Start 02/01/17 at 22:30 Docusate Sodium (Colace) 100 mg Q12H PRN PO CONSTIPATION; Start 02/01/17 at 22: 30 Magnesium Hydroxide (Milk Of Mag) 30 ml DAILY PRN PO CONSTIPATION; Start at 22:30 Bisacodyl (Dulcolax) 5 mg DAILY PRN PO CONSTIPATION; Start 02/01/17 at 22:30 Zolpidem Tartrate (Ambien) 5 mg QHS PRN PO SLEEP; Start 02/01/17 at 22:30 Lansoprazole (Prevacid) 30 mg DAILY@06 GTB Last administered on 02/15/17 06:29 ; Admin Dose 30 MG; Start 02/02/17 at 06:00 Enoxaparin Sodium (Lovenox) 40 mg DAILY SC Last administered on 02/15/17 10:15 ; Admin Dose 40 MG; Start 02/02/17 at 09:00 Ascorbic Acid (Vitamin C) 500 mg BID GTB Last administered on 02/14/17 21:47; Admin Dose 500 MG; Start 02/02/17 at 09:00 Diazepam (Valium) 5 mg DAILY PRN GTB ANXIETY Last administered on 02/08/17 20: 27; Admin Dose 5 MG; Start 02/01/17 at 22:30 Duloxetine HCl (Cymbalta) 20 mg DAILY GTB Last administered on 02/14/17 09:29 ; Admin Dose 20 MG; Start 02/02/17 at 09:00 Multivitamins Therapeutic (Theragran) 1 tab DAILY GTB Last administered on 02/14 09:30; Admin Dose 1 TAB; Start 02/02/17 at 09:00 Zinc Sulfate (Zinc Sulfate) 220 mg DAILY GTB Last administered on 02/14/17 09: 29; Admin Dose 220 MG; Start 02/02/17 at 09:00 Lactobacillus Acidophilus (Florajen3 Capsule) 1 each TID NGT Last administered on 02/14/17 21:47; Admin Dose 1 EACH; Start 02/02/17 at 09:00 Lactulose (Enulose) 20 gm BID PO Last administered on 02/14/17 21:47; Admin Dose 20 GM; Start 02/02/17 at 09:00 Collagenase (Santyl) 1 applic DAILY TOP Last administered on 02/15/17 10:13; Admin Dose 1 APPLIC; Start 02/02/17 at 09:00 Collagenase 1 applic 1 applic PRN PRN TOP PRN; Start 02/02/17 at 04:00 Linezolid 300 ml @ 300 mls/hr Q12 IVPB Last administered on 02/15/17 10:12; Admin Dose 300 MLS/HR; Start 02/09/17 at 15:00 Metronidazole 100 ml @ 100 mls/hr Q8 IVPB Last administered on 02/15/17 06:29 ; Admin Dose 100 MLS/HR; Start 02/09/17 at 14:00 Norepinephrine 16 mg/Dextrose 500 ml @ 0 mls/hr TITRATE IV Last administered on 02/14/17 00:36; Admin Dose 48.75 MLS/HR; Start 02/10/17 at 17:30 Colistimethate Sodium/Sodium Chloride (Coly-Mycin/NS) 100 ml @ 200 mls/hr Q12H IVPB Last administered on 02/15/17 06:29; Admin Dose 200 MLS/HR; Start at 04:00 Sodium Hypochlorite (Dakin'S (1/4 Strength)) 1 applic DAILY IRR Last administered on 02/15/17 10:13; Admin Dose 1 APPLIC; Start 02/10/17 at 13:30 IV Flush (NS 10 ml) 10 ml PRN PRN IV FLUSH LINE; Start 02/10/17 at 15:30 Mupirocin (Bactroban) 1 applic BID TOP Last administered on 02/15/17 10:12; Admin Dose 1 APPLIC; Start 02/11/17 at 14:00 Dextrose 25 ml 25 ml IACHS PRN IV DECREASED GLUCOSE Last administered on 21:45; Admin Dose 25 ML; Start 02/13/17 at 08:30 Total Parenteral Nutrition (Tpn) 1,000 ml @ 60 mls/hr [id number] IV Last administered on 02/15/17 01:31; Admin Dose 60 MLS/HR; Start 02/13/17 at 16:00 Dextrose 50 ml 50 ml IV PRN IV DECREASED GLUCOSE Last administered on 18:07; Admin Dose 50 ML; Start 02/13/17 at 14:30 Phenylephrine HCl/ Dextrose (Mane-Syneph/D5W) 500 ml @ 75 mls/hr TITRATE IV ; Start 02/13/17 at 16:00 Fentanyl (Duragesic 25 Mcg/Hr Patch) 1 patch Q72H TRANSDERM Last administered on 02/14/17 17:28; Admin Dose 1 PATCH; Start 02/14/17 at 15:30 Diagnostic Test (Pha) 1 ea 1 ea Q6 XX Last administered on 02/15/17 12:37; Admin Dose 1 EA; Start 02/14/17 at 18:00 Pamidronate Disodium/Sodium Chloride (Aredia/NS) 510 ml @ 83.333 mls/ hr Q6H8M IV Last administered on 02/15/17 12:25; Admin Dose 83.333 MLS/HR; Start at 10:00; Stop 02/15/17 at 16:00 VIKASH CASTANEDA Feb 15, 2017 13:30
[2017-02-15 13:33] LABS: ANISOCYTOSIS 2+ (0-0); BURR CELLS 1+ (0-0); MICROCYTOSIS 1+ (0-0); MONOCYTES % (M) 5 % (0-11); PLATELET ESTIMATE NORMAL; POIKILOCYTOSIS 3+ (0-0); POLYCHROMASIA 3+ (0-0); SPHEROCYTES 1+ (0-0)
--- NOTE | 2017-02-15 13:50 | PN ---
DATE: 02/15/2017 SUBJECTIVE DATA: No acute changes. The patient is hypothermic. She is on blanket warmer. She is in no distress. Lethargic. NG tube to suction. Temperature 96, pulse 78, respirations 16, blood pressure 110/70, saturation 100 on 30 FiO2. LABORATORY AND DIAGNOSTIC DATA: WBC 20.2, H and H 8.2 and 26.2, platelets 292,000, neutrophils 87, bands 2. Sodium 132, BUN 42, creatinine 0.89. Calcium 13.4. INDWELLINGS: Trach, PEG, George, PICC line placed on 02/11/2016, NG tube. ANTIBIOTICS: Colistin IV, Zyvox, Flagyl. OBJECTIVE DATA: GENERAL: This is a chronically ill-appearing, cachectic elderly woman who is in no distress. HEENT: Head atraumatic, normocephalic. Sclerae anicteric. Buccal mucosa dry. NECK: Supple. Tracheostomy present. CHEST: Rise symmetrical. Breath sounds diminished at the bases. HEART: S1, S2. ABDOMEN: Soft, bowel sounds hypoactive. EXTREMITIES: Trace edema. SKIN: Unstageable decubiti. ASSESSMENT: 1. Severe sepsis status post shock. 2. Possible small-bowel obstruction versus ileus. 3. Metastatic lung cancer with acute on chronic respiratory failure. 4. Possible obstructive pneumonia. 5. Multiple chronic wounds with questionable osteomyelitis of the sacrum per CT of the abdomen and pelvis. 6. Methicillin-resistant Staphylococcus aureus nares colonization. 7. Multidrug resistant urinary tract infection. 8. Ascites. 9. Anemia. 10. History of Clostridium difficile colitis. 11. Severe cachexia. PLAN: The patient remains unchanged, stable off pressors. She is on appropriate antimicrobials. She is being followed by multiple consultants. Plan to repeat CT of the abdomen. Continue present care. Dictated By: Johnny Chapa NP /[facility]/ec /Document#: [id number]
--- NOTE | 2017-02-15 14:15 | PN ---
Date/Time of Note Date/Time of Note DATE: 02/15/17 TIME: 14:07 Assessment/Plan Lines/Catheters IV Catheter Type (from Nrs): PICC Line Story in Place (from Nrs): Yes Assessment/Plan Chief Complaint/Hosp Course 1. 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 Multiple decubitus ulcers with debris, with likely osteo -Offload -Optimize nutrition -Vitamin C -Local care with dakins -Debridement sacrococcyx prn when patient medically stable 3. Abdominal distention: possible ileus vs. obstruction; pt with ng tube for decompression, no BM currently; sbft results noted; CT obtained per radiology recommendation; awaiting results -close monitoring 4. Sepsis with hypotension and hypoglycemia: UTI +/- Bacteremia +/- PNA + wounds : off pressors (titrating down); s/p decadron -supportive -abx per sensitivities -pulmonary toilette -optimize blood sugar 5. Acute on chronic diastolic heart failure -Judicious fluid management -Cardiac optimization 6. Hypoalbuminemia: inflammation/infection +/- malnutrition -as above -nutrition optimization 7. Depression. -Medical management 8. Hypothyroidism by history; TSH elevated -Synthroid 9. .Normocytic anemia: chronic disease vs. acute bleed; no rogerio bleed noted: s /p PRBC transfusion -monitor -transfuse as needed - per heme/onc 10. Chronic pain syndrome: patient with metastasis -continue pain management 11. UTI: -abx per sensitivity/ID 12. Leukocytosis with bandemia: 2/2 multifactorial: bacteremia, uti, wounds, sbo : minimally improved -abx per sensitivity -supportive 13. Chronic urinary retention with Story -perineal care -story care 14. Severe hyponatremia: improving -per renal -judicious fluids Patient seen and examined in collaboration with Dr. Christian Sinclair. Thank you. Problems: Subjective 24 Hr Interval Summary Awake. Abdominal discomfort and distention but a bit softer than yesterday. Continues to have output from ng tube, no n/v. No bowel function. CT abdomen done-pending results. Off pressors. Leukocytosis with bandemia. No fevers, chills, sob (comfortable on vent), cp, palpitations, change in tele rhythm, excessive wound drainage or discomfort from wounds. Exam/Review of Systems Vital Signs Vitals Vital Signs Date Time Temp Pulse Resp B/P Pulse Ox O2 Delivery O2 Flow Rate FiO2 02/15/17 19:00 93 22 124/87 100 Mechanical Ventilator 02/15/17 17:10 30 02/15/17 16:00 96.5 Intake and Output 02/14/17 02/14/17 02/15/17 15:00 23:00 07:00 Intake Total 864.6875 ml 980 ml 1220 ml Output Total 1875 ml 1315 ml 1060 ml Balance -1010.3125 ml -335 ml 160 ml Exam Free Text/Dictation Constitutional: awake, (trached), oriented, No distress Psych: anxious Head: atraumatic, normocephalic Eyes: nl conjunctiva, nl lids, nl sclera ENMT: mucosa pink and moist, nl external ears & nose, nl lips & teeth; ng tube Neck: non-tender, other (tracheostomy, non-reddened, no drainage noted), supple Respiratory: normal effort, no wheezing, min thin sputum Cardiovascular: nl pulses, regular rate and rhythm Gastrointestinal: non-tender, other (gtube, site non-tender, non-reddened), mod distention but slightly softer than yesterday Musculoskeletal: nl extremities to inspection Extremities: normal pulses, extremity Edema +2 Neurological: nl mental status, No nl strength (gen weakness) Skin: No rash; wounds (sacral wound pink woundbed min slough with min/mod dry drainage) Results Result Diagram: 02/15/17 0435 02/15/17 0430 JERRY SAHU NP Feb 15, 2017 14:15
--- NOTE | 2017-02-15 15:17 | RADRPT ---
PROCEDURE: CT Abdomen and Pelvis without contrast. CLINICAL INDICATION: Pain. Sepsis. Hypotension. Possible small bowel obstruction. TECHNIQUE: Multiple contiguous axial CT images of the abdomen and pelvis were obtained without the administration of intravenous contrast. Coronal and sagittal reconstructions were also performed. CTDIvol (mGy): 20.26; Total Exam DLP (mGy-cm): 1102.95. One or more of the following dose reduction techniques were utilized: - Automated exposure control. - Adjustment of the mA and/or kV according to patient size. - Use of iterative reconstruction technique. COMPARISON: Small bowel follow-through 02/14/2017. CT abdomen/pelvis 02/12/2017. FINDINGS: Limited imaging of the lower thorax demonstrate scattered bibasilar atelectasis, which is slightly i mproved from prior examination. A partially imaged mass of the lateral aspect of the left lung is a gain identified. Small bilateral pleural effusions are present and grossly unchanged. A 4.1 cm hypodense lesion is seen within the right hepatic lobe. A similar smaller lesion measuring 1.3 cm is seen slightly more superiorly within the right hepatic lobe. These are unchanged. The g allbladder surgically absent. The spleen, pancreas and adrenal glands are unremarkable. The kidneys are symmetric in size. There are no nephroureteral stones. There is no hydronephrosis o r abnormal perinephric inflammation. The abdominal aorta is normal in caliber. Atherosclerotic calcification is present. There is no per iaortic / retroperitoneal lymphadenopathy. A percutaneous gastrostomy tube is in place within the distal portion of the stomach. An enteric tu be terminates within the body of the stomach. Fluid-filled distension of the small bowel has decrea sed. Mild residual dilute contrast is present. Intraluminal contrast is seen throughout the large intestines. There is no evidence of pneumatosis or pneumoperitoneum. Diffuse mesenteric edema is o bserved. The bladder is collapsed around a George. There is no free pelvic fluid. There is no pelvic sidewall or inguinal lymphadenopathy. L4-S1 posterior spinal fusion hardware is in place. Laminectomies are also observed. Severe L2-L3 an d L3-L4 degenerative disk disease is observed and unchanged. Grade 1 anterolisthesis of L2 over L3 is present and unchanged. Erosive changes of the lower sacrum are also present and unchanged. Ulce ration of the overlying skin is also observed. Diffuse subcutaneous edema is present. IMPRESSION: Decreased fluid-filled distension of the small bowel. Mild residual dilute contrast is present. Diffuse mesenteric edema. Partially visualized mass of the left lung base. Subtle hepatic hypodense lesions are also present and unchanged. Decubitus ulcer with erosive changes of the posterior aspect of the lower sacrum, unchanged. L4-S1 posterior spinal fusion with severe L2-L4 degenerative disk disease, unchanged. RPTAT: HLST .Yajaira Carmona MD, MD Date Time Electronically viewed and signed by .Yajaira Carmona MD, on 02/15/2017 15:17 .T/
--- NOTE | 2017-02-15 18:17 | RADRPT ---
PROCEDURE: XR Chest. CLINICAL INDICATION: chest pain TECHNIQUE: Single AP view of the chest were obtained COMPARISON: 02/11/2017 FINDINGS: The heart there is stable enlarged. The pulmonary vasculature are again prominent. The aorta demons trates atherosclerotic calcifications. Bilateral interstitial opacities are again seen with continu ed opacification of the left lower thorax. Degenerative changes are seen within the thoracic spine. There is no acute osseous abnormality. Tracheostomy tube terminates within the mid trachea. There is a gastric catheter which extends to below the GE junction. Right PICC line catheter tip appears to the within the right subclavian vein. IMPRESSION: Right PICC line catheter tip appears to terminate at the subclavian vein and is partially pole are c ompared to the prior exam. Otherwise appropriate positioning of the tracheostomy tube and gastric catheter. Stable cardiomegaly and vascular congestion with continued opacification of the left lower thorax. RPTAT: AA .Renetta Ansari MD, Date Time Electronically viewed and signed by .Renetta Ansari MD, on 02/15/2017 18:16 .Hellen/
[2017-02-15] MEDS ORDERED: LIDOCAINE 1% (MDV) 20 ML INJ SC ONE ×2 (18:30→19:00)
[2017-02-15] MEDS ORDERED: SOD CHLORIDE 0.9% 1,000 ML IV ONE (19:00)
--- NOTE | 2017-02-15 20:33 | CONS ---
Date/Time of Note Date/Time of Note DATE: 02/15/17 TIME: 20:32 Assessment/Plan Assessment/Plan Chief Complaint/Hosp Course -Anemia, POST PRBC transfuse packed red blood cells as needed continue to monitor H&H. COMPLEX, MULTIFACTORIAL -Left lung squamous carcinoma, NOW WITH POS LIVER METS supportive care no aggressive treatment planned HYPERCALCEMIA POST AREDIA - SBO NOW ON CONSERVATIVE MANAGEMENT -Sepsis, most likely secondary to urinary tract infection and possible postobstructive pneumonia. Dr. Coleman is following infection disease consultation, follow-up on cultures, continue antibiotics per ID. -Hyponatremia, nephrology f-up, continue IV fluids per renal. -Ventilator dependent respiratory failure with tracheostomy, continue breathing treatments. -COPD -Dysphagia with PEG -History of cardiopulmonary arrest -Multiple wounds present on admission, that is post debridement at last admission. -Hypothyroidism -Chronic urinary retention with George catheter PROGNOSIS- POOR Problems: Consultation Date/Type/Reason Admit Date/Time Feb 01, 2017 at 15:50 Initial Consult Date 02/08/17 Type of Consultation: hemeon Referring Provider: DRE LOBATO MD 24 HR Interval Summary Free Text/Dictation no change in condition, pt is chemical code only, BP stable , Ca still high, renal function normal post aredia Exam/Review of Systems Vital Signs Vitals Vital Signs Date Time Temp Pulse Resp B/P Pulse Ox O2 Delivery O2 Flow Rate FiO2 02/15/17 19:00 93 22 124/87 100 Mechanical Ventilator 02/15/17 17:10 30 02/15/17 16:00 96.5 Intake and Output 02/14/17 02/14/17 02/15/17 15:00 23:00 07:00 Intake Total 864.6875 ml 980 ml 1220 ml Output Total 1875 ml 1315 ml 1060 ml Balance -1010.3125 ml -335 ml 160 ml Exam Exam GENERAL: frail, lethargic HEENT: NG tube in place, NECK: Supple. Tracheostomy present. CHEST: bilateral basilar rales HEART: S1, S2.tachycardia ABDOMEN: Soft, distended, +g tube in place EXTREMITIES: Without cyanosis. SKIN: With unstageable sacral wound. Results Result Diagram: 02/15/17 0435 02/15/17 0430 Results 24 hrs Laboratory Tests Test 02/15/17 00:37 02/15/17 04:30 02/15/17 04:35 02/15/17 06:35 Bedside Glucose 139 129 Sodium Level 132 L Potassium Level 3.5 Chloride Level 95 L Carbon Dioxide Level 24 Anion Gap 17 H Blood Urea Nitrogen 42 H Creatinine 0.89 Glucose Level 119 Calcium Level 13.4 *H White Blood Count 20.2 H Red Blood Count 3.06 L Hemoglobin 8.2 L Hematocrit 26.2 L Mean Corpuscular Volume 85.6 Mean Corpuscular Hemoglobin 26.8 L Mean Corpuscular Hemoglobin Concent 31.3 L Red Cell Distribution Width 17.0 H Platelet Count 292 Mean Platelet Volume 8.6 Neutrophils % Segmented Neutrophils % (Manual) 75 Band Neutrophils % (Manual) 16 H Lymphocytes % Lymphocytes % (Manual) 4 L Monocytes % Monocytes % (Manual) 5 Eosinophils % Basophils % Nucleated Red Blood Cells % 0.0 Neutrophils # (Manual) 15.8 H Band Neutrophils # 3.2 H Absolute Lymphocytes (Manual) 0.8 Lymphocytes # 1.0 Monocytes # 1.2 H Absolute Monocytes (Manual) 1.0 H Eosinophils # Basophils # Nucleated Red Blood Cells # Platelet Estimate NORMAL Polychromasia 3+ Poikilocytosis 3+ Anisocytosis 2+ Microcytosis 1+ Macrocytosis 1+ Spherocytes 1+ Test 02/15/17 12:30 02/15/17 13:45 02/15/17 18:59 Bedside Glucose 141 75 Lactic Acid Level 4.2 *H Medications Medications Current Medications Ondansetron HCl (Zofran Inj) 4 mg Q6H PRN IV NAUSEA AND/OR VOMITING Last administered on 02/05/17 09:36; Admin Dose 4 MG; Start 02/01/17 at 22:30 Acetaminophen (Tylenol Tab) 650 mg Q6H PRN PO PAIN LEVEL 1-3 OR FEVER Last administered on 02/04/17 21:08; Admin Dose 650 MG; Start 02/01/17 at 22:30 Acetaminophen/ Hydrocodone Bitart (Victor (5/325)) 1 tab Q6H PRN PO MODERATE PAIN LEVEL 4-6 Last administered on 02/04/17 21:07; Admin Dose 1 TAB; Start at 22:30 Hydromorphone HCl (Dilaudid) 0.5 mg Q4H PRN IV SEVERE PAIN LEVEL 7-10 Last administered on 02/15/17 01:31; Admin Dose 0.5 MG; Start 02/01/17 at 22:30 Docusate Sodium (Colace) 100 mg Q12H PRN PO CONSTIPATION; Start 02/01/17 at 22: 30 Magnesium Hydroxide (Milk Of Mag) 30 ml DAILY PRN PO CONSTIPATION; Start at 22:30 Bisacodyl (Dulcolax) 5 mg DAILY PRN PO CONSTIPATION; Start 02/01/17 at 22:30 Zolpidem Tartrate (Ambien) 5 mg QHS PRN PO SLEEP; Start 02/01/17 at 22:30 Lansoprazole (Prevacid) 30 mg DAILY@06 GTB Last administered on 02/15/17 06:29 ; Admin Dose 30 MG; Start 02/02/17 at 06:00 Enoxaparin Sodium (Lovenox) 40 mg DAILY SC Last administered on 02/15/17 10:15 ; Admin Dose 40 MG; Start 02/02/17 at 09:00 Ascorbic Acid (Vitamin C) 500 mg BID GTB Last administered on 02/14/17 21:47; Admin Dose 500 MG; Start 02/02/17 at 09:00 Diazepam (Valium) 5 mg DAILY PRN GTB ANXIETY Last administered on 02/08/17 20: 27; Admin Dose 5 MG; Start 02/01/17 at 22:30 Duloxetine HCl (Cymbalta) 20 mg DAILY GTB Last administered on 02/14/17 09:29 ; Admin Dose 20 MG; Start 02/02/17 at 09:00 Multivitamins Therapeutic (Theragran) 1 tab DAILY GTB Last administered on 02/14 09:30; Admin Dose 1 TAB; Start 02/02/17 at 09:00 Zinc Sulfate (Zinc Sulfate) 220 mg DAILY GTB Last administered on 02/14/17 09: 29; Admin Dose 220 MG; Start 02/02/17 at 09:00 Lactobacillus Acidophilus (Florajen3 Capsule) 1 each TID NGT Last administered on 02/14/17 21:47; Admin Dose 1 EACH; Start 02/02/17 at 09:00 Lactulose (Enulose) 20 gm BID PO Last administered on 02/14/17 21:47; Admin Dose 20 GM; Start 02/02/17 at 09:00 Collagenase (Santyl) 1 applic DAILY TOP Last administered on 02/15/17 10:13; Admin Dose 1 APPLIC; Start 02/02/17 at 09:00 Collagenase 1 applic 1 applic PRN PRN TOP PRN; Start 02/02/17 at 04:00 Linezolid 300 ml @ 300 mls/hr Q12 IVPB Last administered on 02/15/17 10:12; Admin Dose 300 MLS/HR; Start 02/09/17 at 15:00 Metronidazole 100 ml @ 100 mls/hr Q8 IVPB Last administered on 02/15/17 06:29 ; Admin Dose 100 MLS/HR; Start 02/09/17 at 14:00 Norepinephrine 16 mg/Dextrose 500 ml @ 0 mls/hr TITRATE IV Last administered on 02/14/17 00:36; Admin Dose 48.75 MLS/HR; Start 02/10/17 at 17:30 Colistimethate Sodium/Sodium Chloride (Coly-Mycin/NS) 100 ml @ 200 mls/hr Q12H IVPB Last administered on 02/15/17 06:29; Admin Dose 200 MLS/HR; Start at 04:00 Sodium Hypochlorite (Dakin'S (1/4 Strength)) 1 applic DAILY IRR Last administered on 02/15/17 10:13; Admin Dose 1 APPLIC; Start 02/10/17 at 13:30 IV Flush (NS 10 ml) 10 ml PRN PRN IV FLUSH LINE; Start 02/10/17 at 15:30 Mupirocin (Bactroban) 1 applic BID TOP Last administered on 02/15/17 10:12; Admin Dose 1 APPLIC; Start 02/11/17 at 14:00 Dextrose 25 ml 25 ml IACHS PRN IV DECREASED GLUCOSE Last administered on 21:45; Admin Dose 25 ML; Start 02/13/17 at 08:30 Total Parenteral Nutrition (Tpn) 1,000 ml @ 60 mls/hr [id number] IV Last administered on 02/15/17 01:31; Admin Dose 60 MLS/HR; Start 02/13/17 at 16:00 Dextrose 50 ml 50 ml IV PRN IV DECREASED GLUCOSE Last administered on 18:07; Admin Dose 50 ML; Start 02/13/17 at 14:30 Phenylephrine HCl/ Dextrose (Mane-Syneph/D5W) 500 ml @ 75 mls/hr TITRATE IV ; Start 02/13/17 at 16:00 Fentanyl (Duragesic 25 Mcg/Hr Patch) 1 patch Q72H TRANSDERM Last administered on 02/14/17 17:28; Admin Dose 1 PATCH; Start 02/14/17 at 15:30 Diagnostic Test (Pha) (Accu-Chek) 1 ea Q6 XX Last administered on 02/15/17 18: 50; Admin Dose 1 EA; Start 02/14/17 at 18:00 DYLLAN CARRION MD Feb 15, 2017 20:33
--- NOTE | 2017-02-15 20:37 | RADRPT ---
PROCEDURE: XR Chest. CLINICAL INDICATION: Check PICC line position. TECHNIQUE: Single frontal view. COMPARISON: Prior study done earlier the same day. FINDINGS: There is a right arm PICC line with the tip in the lower superior vena cava. The tracheostomy tube and nasogastric tube remain in satisfactory position. The left lung mass is unchanged. The heart size is normal. There is calcification in the aorta consistent with atherosclerosis. There is no pleural effusion. There is no pneumothorax. IMPRESSION: 1. Right arm PICC line tip in satisfactory position. 2. No other change from the prior study done earlier the same day. RPTAT: QQ .Eduardo Silva MD, MD Date Time Electronically viewed and signed by .Eduardo Silva MD, on 02/15/2017 20:37 .R/
[2017-02-15] MEDS ORDERED: SOD CHLORIDE 0.9% 100 ML ONE (20:47)
[2017-02-16] VITALS (36 sets, daily range): BP systolic 65–156; BP diastolic 51–105; PULSE 100–136; RESP 19–34
[2017-02-16] MEDS: IPRATROPIUM (HFA) 12.9 GM INHALER INH SCH ×4 (01:37→19:28)
[2017-02-16] MEDS: ALBUTEROL 18 GM INHALER INH SCH ×4 (01:37→19:28)
[2017-02-16] MEDS: COLISTIMETHATE 100 MG in SOD CHLORIDE 0.9% 100 ML IVPB SCH ×2 (03:12→17:05)
[2017-02-16] MEDS: metroNIDAZOLE 500 MG/NS (PMX) 100 ML IVPB SCH ×3 (05:07→21:02)
[2017-02-16] MEDS: LANSOPRAZOLE 30 MG CAP GTB SCH (05:08)
[2017-02-16] MEDS: ACCU-CHEK XX SCH ×4 (05:08→23:38)
[2017-02-16 06:06] LABS: CALCIUM 12.9 mg/dl (8.4-10.2); CREATININE 0.8 mg/dl (0.44-1.00); MAGNESIUM 1.7 mg/dl (1.7-2.5); POTASSIUM 3.9 mmol/L (3.5-5.1)
[2017-02-16] MEDS: DULOXETINE 20 MG CAP DR GTB SCH (08:11)
[2017-02-16] MEDS: L ACIDOPHIL/B LACTIS/B LONGUM CAPSULE NGT SCH ×3 (08:11→20:21)
[2017-02-16] MEDS: MULTIVITAMINS THERAPEUTIC TAB GTB SCH (08:11)
[2017-02-16] MEDS: ASCORBIC ACID 500 MG TAB GTB SCH ×2 (08:11→20:21)
[2017-02-16] MEDS: ZINC SULFATE 220 MG CAP GTB SCH (08:11)
[2017-02-16] MEDS: LACTULOSE 30ML CUP PO SCH ×2 (08:12→20:21)
[2017-02-16] MEDS: SODIUM HYPOCHLORITE 0.125% 473 ML BTL IRR SCH (09:09)
[2017-02-16] MEDS: LINEZOLID 600 MG/D5W (PMX) 300 ML IVPB SCH ×2 (09:09→20:21)
[2017-02-16] MEDS: MUPIROCIN 2% 22 GM OINT TOP SCH ×2 (09:10→20:22)
[2017-02-16] MEDS: COLLAGENASE 30 GM TUBE TOP SCH (09:10)
[2017-02-16] MEDS: ENOXAPARIN 40 MG/0.4 ML SYG SC SCH (09:12)
--- NOTE | 2017-02-16 11:31 | CONS ---
Date/Time of Note Date/Time of Note DATE: 02/16/17 TIME: 11:30 Consult Date/Type/Reason Admit Date/Time Feb 01, 2017 at 15:50 Initial Consult Date 02/01/17 Type of Consultation: Pulmonary Ordering Provider: DRE LOBATO MD Subjective No significant changes. Objective Vital Signs Date Time Temp Pulse Resp B/P Pulse Ox O2 Delivery O2 Flow Rate FiO2 02/16/17 11:00 115 28 156/105 96 Mechanical Ventilator 02/16/17 08:00 97.7 02/16/17 05:19 30 Intake and Output 02/15/17 02/15/17 02/16/17 15:00 23:00 07:00 Intake Total 1029.999 ml 866.666 ml 680 ml Output Total 495 ml 1025 ml 760 ml Balance 534.999 ml -158.334 ml -80 ml Exam PHYSICAL EXAMINATION GENERAL: Elderly lady on mechanical ventilation via tracheostomy VITAL SIGNS: see below. HEENT: Pupils equal, round, and reactive to light. CARDIAC: S1, S2, 1/6 systolic ejection murmur CHEST: Diminished air entry bilaterally. ABDOMEN: Mildly distended. Bowel sounds present no guarding or rebound EXTREMITIES: No cyanosis, clubbing edema +1 NEUROLOGIC: Generalized weakness Results/Medications Result Diagram: 02/15/17 0435 02/16/17 0430 Results 24 hrs Laboratory Tests Test 02/15/17 12:30 02/15/17 13:45 02/15/17 18:59 02/15/17 23:45 Bedside Glucose 141 75 111 Lactic Acid Level 4.2 *H Test 02/16/17 04:30 02/16/17 05:06 Sodium Level 138 Potassium Level 3.9 Chloride Level 104 Carbon Dioxide Level 24 Anion Gap 14 Blood Urea Nitrogen 51 H Creatinine 0.80 Glucose Level 76 # Calcium Level 12.9 H Ionized Calcium (Measured) 1.9 H Phosphorus Level 4.0 Magnesium Level 1.7 Bedside Glucose 83 Medications Current Medications Ondansetron HCl (Zofran Inj) 4 mg Q6H PRN IV NAUSEA AND/OR VOMITING Last administered on 02/05/17 09:36; Admin Dose 4 MG; Start 02/01/17 at 22:30 Acetaminophen (Tylenol Tab) 650 mg Q6H PRN PO PAIN LEVEL 1-3 OR FEVER Last administered on 02/04/17 21:08; Admin Dose 650 MG; Start 02/01/17 at 22:30 Acetaminophen/ Hydrocodone Bitart ([place] (5/325)) 1 tab Q6H PRN PO MODERATE PAIN LEVEL 4-6 Last administered on 02/04/17 21:07; Admin Dose 1 TAB; Start at 22:30 Hydromorphone HCl (Dilaudid) 0.5 mg Q4H PRN IV SEVERE PAIN LEVEL 7-10 Last administered on 02/15/17 01:31; Admin Dose 0.5 MG; Start 02/01/17 at 22:30 Docusate Sodium (Colace) 100 mg Q12H PRN PO CONSTIPATION; Start 02/01/17 at 22: 30 Magnesium Hydroxide (Milk Of Mag) 30 ml DAILY PRN PO CONSTIPATION; Start at 22:30 Bisacodyl (Dulcolax) 5 mg DAILY PRN PO CONSTIPATION; Start 02/01/17 at 22:30 Zolpidem Tartrate (Ambien) 5 mg QHS PRN PO SLEEP; Start 02/01/17 at 22:30 Lansoprazole (Prevacid) 30 mg DAILY@06 GTB Last administered on 02/15/17 06:29 ; Admin Dose 30 MG; Start 02/02/17 at 06:00 Enoxaparin Sodium (Lovenox) 40 mg DAILY SC Last administered on 02/16/17 09:12 ; Admin Dose 40 MG; Start 02/02/17 at 09:00 Ascorbic Acid (Vitamin C) 500 mg BID GTB Last administered on 02/14/17 21:47; Admin Dose 500 MG; Start 02/02/17 at 09:00 Diazepam (Valium) 5 mg DAILY PRN GTB ANXIETY Last administered on 02/08/17 20: 27; Admin Dose 5 MG; Start 02/01/17 at 22:30 Duloxetine HCl (Cymbalta) 20 mg DAILY GTB Last administered on 02/14/17 09:29 ; Admin Dose 20 MG; Start 02/02/17 at 09:00 Multivitamins Therapeutic (Theragran) 1 tab DAILY GTB Last administered on 02/14 09:30; Admin Dose 1 TAB; Start 02/02/17 at 09:00 Zinc Sulfate (Zinc Sulfate) 220 mg DAILY GTB Last administered on 02/14/17 09: 29; Admin Dose 220 MG; Start 02/02/17 at 09:00 Lactobacillus Acidophilus (Florajen3 Capsule) 1 each TID NGT Last administered on 02/14/17 21:47; Admin Dose 1 EACH; Start 02/02/17 at 09:00 Lactulose (Enulose) 20 gm BID PO Last administered on 02/14/17 21:47; Admin Dose 20 GM; Start 02/02/17 at 09:00 Collagenase (Santyl) 1 applic DAILY TOP Last administered on 02/16/17 09:10; Admin Dose 1 APPLIC; Start 02/02/17 at 09:00 Collagenase 1 applic 1 applic PRN PRN TOP PRN; Start 02/02/17 at 04:00 Linezolid 300 ml @ 300 mls/hr Q12 IVPB Last administered on 02/16/17 09:09; Admin Dose 300 MLS/HR; Start 02/09/17 at 15:00 Metronidazole 100 ml @ 100 mls/hr Q8 IVPB Last administered on 02/16/17 05:07 ; Admin Dose 100 MLS/HR; Start 02/09/17 at 14:00 Norepinephrine 16 mg/Dextrose 500 ml @ 0 mls/hr TITRATE IV Last administered on 02/14/17 00:36; Admin Dose 48.75 MLS/HR; Start 02/10/17 at 17:30 Colistimethate Sodium/Sodium Chloride (Coly-Mycin/NS) 100 ml @ 200 mls/hr Q12H IVPB Last administered on 02/16/17 03:12; Admin Dose 200 MLS/HR; Start at 04:00 Sodium Hypochlorite (Dakin'S (1/4 Strength)) 1 applic DAILY IRR Last administered on 02/16/17 09:09; Admin Dose 1 APPLIC; Start 02/10/17 at 13:30 IV Flush (NS 10 ml) 10 ml PRN PRN IV FLUSH LINE; Start 02/10/17 at 15:30 Mupirocin (Bactroban) 1 applic BID TOP Last administered on 02/16/17 09:10; Admin Dose 1 APPLIC; Start 02/11/17 at 14:00 Dextrose 25 ml 25 ml IACHS PRN IV DECREASED GLUCOSE Last administered on 21:45; Admin Dose 25 ML; Start 02/13/17 at 08:30 Total Parenteral Nutrition (Tpn) 1,000 ml @ 60 mls/hr [id number] IV Last administered on 02/15/17 20:45; Admin Dose 60 MLS/HR; Start 02/13/17 at 16:00 Dextrose 50 ml 50 ml IV PRN IV DECREASED GLUCOSE Last administered on 18:07; Admin Dose 50 ML; Start 02/13/17 at 14:30 Phenylephrine HCl/ Dextrose (Mane-Syneph/D5W) 500 ml @ 75 mls/hr TITRATE IV ; Start 02/13/17 at 16:00 Fentanyl (Duragesic 25 Mcg/Hr Patch) 1 patch Q72H TRANSDERM Last administered on 02/14/17 17:28; Admin Dose 1 PATCH; Start 02/14/17 at 15:30 Diagnostic Test (Pha) (Accu-Chek) 1 ea Q6 XX Last administered on 02/16/17 05: 08; Admin Dose 1 EA; Start 02/14/17 at 18:00 IV Flush (NS 10 ml) 10 ml PRN PRN IV IV PROTOCOL; Start 02/15/17 at 21:30 Assessment/Plan Chief Complaint/Hosp Course Assessment 1. Vent dependent respiratory failure 2. Severe sepsis status post shock 3. Advanced lung cancer 4. Persistent leukocytosis 5. Lactic acidosis 6. Ileus Plan 1. Continue mechanical ventilation 2 continue broad-spectrum antibiotics 3. Surgical recommendations 4. DVT GI prophylaxis Overall prognosis very poor. Agree with DNR CODE STATUS. Problems: CASSIE VACA MD, [facility] Feb 16, 2017 11:31
[2017-02-16] MEDS: TPN 1,000 ML IV SCH (13:07)
[2017-02-16] MEDS: HYDROmorphONE 1 MG/ML SYG IV PRN (13:08)
--- NOTE | 2017-02-16 15:38 | RADRPT ---
Vent Rate: 108 bpm RR Interval: 0 msec MN Interval: 142 msec QRS Duration: 84 msec QT Interval: 302 msec QTC Interval: 404 msec P-R-T [place]: 62 - 74 - 74 degrees Sinus tachycardia Septal infarct , age undetermined Abnormal ECG Electronically Signed By: Artemio Tipton [id number]
--- NOTE | 2017-02-16 16:05 | CONS ---
Date/Time of Note Date/Time of Note DATE: 02/16/17 TIME: 16:02 Assessment/Plan Assessment/Plan Additional Assessment/Plan 1. 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 septic shock on levophed 3. Recurrent Multidrug Resistant Urinary tract infection 4. Sacral wound 5. Chronic resp failure 6.S/P Tracheostomy, S/p PEG tube placement 7. Lung CA- Squamous Cell CA 8. Hypercalcemia due to squamous cell CA of lung Plan: Continue current IV abx Colimycin and zyvox , ID following, renally dos abx Abdomen is slightly less distended, patient continues to be on Levophed drip, ventilatory support via tracheostomy, abdomen is tender, NG-tube to suction for stomach decompression, continue ICU care, continue TPN. S/p 3 % saline on02/09/17- s/p tolvaptan 15 mg PNGTUBE x 1 dose on 02/13/17- Na slightly improved to 138 today Ca high 13.4, ionised Ca is also high 1.9, renal function has been normal , will give Pamidronate 30mg IV x 1 dose given on 02/15/17- expecting Ca to improve will follow up Consultation Date/Type/Reason Admit Date/Time Feb 01, 2017 at 15:50 Initial Consult Date 02/08/17 Type of Consultation: NEPHROLOGY Referring Provider: DRE LOBATO MD 24 HR Interval Summary Free Text/Dictation Remains on ventilator, levophed, Exam/Review of Systems Vital Signs Vitals Vital Signs Date Time Temp Pulse Resp B/P Pulse Ox O2 Delivery O2 Flow Rate FiO2 02/16/17 15:27 124 26 96 30 02/16/17 11:00 156/105 Mechanical Ventilator 02/16/17 08:00 97.7 Intake and Output 02/15/17 02/15/17 02/16/17 15:00 23:00 07:00 Intake Total 1029.999 ml 866.666 ml 680 ml Output Total 495 ml 1025 ml 760 ml Balance 534.999 ml -158.334 ml -80 ml Exam GENERAL: frail, lethargic HEENT: NG tube in place, NECK: Supple. Tracheostomy present. CHEST: bilateral basilar rales HEART: S1, S2.tachycardia ABDOMEN: Soft, distended, +g tube in place EXTREMITIES: Without cyanosis. SKIN: With unstageable sacral wound. Results Result Diagram: 02/15/17 0435 02/16/17 0430 Results 24 hrs Laboratory Tests Test 02/15/17 18:59 02/15/17 23:45 02/16/17 04:30 02/16/17 05:06 Bedside Glucose 75 111 83 Sodium Level 138 Potassium Level 3.9 Chloride Level 104 Carbon Dioxide Level 24 Anion Gap 14 Blood Urea Nitrogen 51 H Creatinine 0.80 Glucose Level 76 # Calcium Level 12.9 H Ionized Calcium (Measured) 1.9 H Phosphorus Level 4.0 Magnesium Level 1.7 Test 02/16/17 13:06 Bedside Glucose 74 Medications Medications Current Medications Ondansetron HCl (Zofran Inj) 4 mg Q6H PRN IV NAUSEA AND/OR VOMITING Last administered on 02/05/17 09:36; Admin Dose 4 MG; Start 02/01/17 at 22:30 Acetaminophen (Tylenol Tab) 650 mg Q6H PRN PO PAIN LEVEL 1-3 OR FEVER Last administered on 02/04/17 21:08; Admin Dose 650 MG; Start 02/01/17 at 22:30 Acetaminophen/ Hydrocodone Bitart ([place] (5/325)) 1 tab Q6H PRN PO MODERATE PAIN LEVEL 4-6 Last administered on 02/04/17 21:07; Admin Dose 1 TAB; Start at 22:30 Hydromorphone HCl (Dilaudid) 0.5 mg Q4H PRN IV SEVERE PAIN LEVEL 7-10 Last administered on 02/16/17 13:08; Admin Dose 0.5 MG; Start 02/01/17 at 22:30 Docusate Sodium (Colace) 100 mg Q12H PRN PO CONSTIPATION; Start 02/01/17 at 22: 30 Magnesium Hydroxide (Milk Of Mag) 30 ml DAILY PRN PO CONSTIPATION; Start at 22:30 Bisacodyl (Dulcolax) 5 mg DAILY PRN PO CONSTIPATION; Start 02/01/17 at 22:30 Zolpidem Tartrate (Ambien) 5 mg QHS PRN PO SLEEP; Start 02/01/17 at 22:30 Lansoprazole (Prevacid) 30 mg DAILY@06 GTB Last administered on 02/15/17 06:29 ; Admin Dose 30 MG; Start 02/02/17 at 06:00 Enoxaparin Sodium (Lovenox) 40 mg DAILY SC Last administered on 02/16/17 09:12 ; Admin Dose 40 MG; Start 02/02/17 at 09:00 Ascorbic Acid (Vitamin C) 500 mg BID GTB Last administered on 02/14/17 21:47; Admin Dose 500 MG; Start 02/02/17 at 09:00 Diazepam (Valium) 5 mg DAILY PRN GTB ANXIETY Last administered on 02/08/17 20: 27; Admin Dose 5 MG; Start 02/01/17 at 22:30 Duloxetine HCl (Cymbalta) 20 mg DAILY GTB Last administered on 02/14/17 09:29 ; Admin Dose 20 MG; Start 02/02/17 at 09:00 Multivitamins Therapeutic (Theragran) 1 tab DAILY GTB Last administered on 02/14 09:30; Admin Dose 1 TAB; Start 02/02/17 at 09:00 Zinc Sulfate (Zinc Sulfate) 220 mg DAILY GTB Last administered on 02/14/17 09: 29; Admin Dose 220 MG; Start 02/02/17 at 09:00 Lactobacillus Acidophilus (Florajen3 Capsule) 1 each TID NGT Last administered on 02/14/17 21:47; Admin Dose 1 EACH; Start 02/02/17 at 09:00 Lactulose (Enulose) 20 gm BID PO Last administered on 02/14/17 21:47; Admin Dose 20 GM; Start 02/02/17 at 09:00 Collagenase (Santyl) 1 applic DAILY TOP Last administered on 02/16/17 09:10; Admin Dose 1 APPLIC; Start 02/02/17 at 09:00 Collagenase 1 applic 1 applic PRN PRN TOP PRN; Start 02/02/17 at 04:00 Linezolid 300 ml @ 300 mls/hr Q12 IVPB Last administered on 02/16/17 09:09; Admin Dose 300 MLS/HR; Start 02/09/17 at 15:00 Metronidazole 100 ml @ 100 mls/hr Q8 IVPB Last administered on 02/16/17 14:35 ; Admin Dose 100 MLS/HR; Start 02/09/17 at 14:00 Colistimethate Sodium/Sodium Chloride (Coly-Mycin/NS) 100 ml @ 200 mls/hr Q12H IVPB Last administered on 02/16/17 03:12; Admin Dose 200 MLS/HR; Start at 04:00 Sodium Hypochlorite (Dakin'S (1/4 Strength)) 1 applic DAILY IRR Last administered on 02/16/17 09:09; Admin Dose 1 APPLIC; Start 02/10/17 at 13:30 IV Flush (NS 10 ml) 10 ml PRN PRN IV FLUSH LINE; Start 02/10/17 at 15:30 Mupirocin (Bactroban) 1 applic BID TOP Last administered on 02/16/17 09:10; Admin Dose 1 APPLIC; Start 02/11/17 at 14:00 Dextrose 25 ml 25 ml IACHS PRN IV DECREASED GLUCOSE Last administered on 21:45; Admin Dose 25 ML; Start 02/13/17 at 08:30 Total Parenteral Nutrition (Tpn) 1,000 ml @ 60 mls/hr [id number] IV Last administered on 02/16/17 13:07; Admin Dose 60 MLS/HR; Start 02/13/17 at 16:00 Dextrose (D50w Syringe) 50 ml IV PRN IV DECREASED GLUCOSE Last administered on 02/13/17 18:07; Admin Dose 50 ML; Start 02/13/17 at 14:30 Fentanyl (Duragesic 25 Mcg/Hr Patch) 1 patch Q72H TRANSDERM Last administered on 02/14/17 17:28; Admin Dose 1 PATCH; Start 02/14/17 at 15:30 Diagnostic Test (Pha) (Accu-Chek) 1 ea Q6 XX Last administered on 02/16/17 12: 00; Admin Dose 1 EA; Start 02/14/17 at 18:00 IV Flush (NS 10 ml) 10 ml PRN PRN IV IV PROTOCOL; Start 02/15/17 at 21:30 DIONNE SAUCEDA MD Feb 16, 2017 16:05
--- NOTE | 2017-02-16 17:35 | PN ---
Date/Time of Note Date/Time of Note DATE: 02/16/17 TIME: 17:33 Assessment/Plan VTE Prophylaxis VTE Prophylaxis Intervention: other Lines/Catheters [facility] P[facility] Line Central line still needed: Yes Urinary Cath still in place: Yes Reason Cath still needed: urinary retention Assessment/Plan Assessment/Plan -Small bowel obstruction. Continue G-tube to low wall suctioning. Dr Gonzales is following in gastroenterology consultation. - CT Abdomen- Decreased fluid-filled distension of the small bowel. Mild residual dilute contrast is present.Diffuse mesenteric edema.Partially visualized mass of the left lung base. Subtle hepatic hypodense lesions are also present and unchanged.Decubitus ulcer with erosive changes of the posterior aspect of the lower sacrum, unchanged. L4-S1 posterior spinal fusion with severe L2-L4 degenerative disk disease, unchanged. -Sepsis, most likely secondary to urinary tract infection and possible postobstructive pneumonia. Dr. Coleman is following infection disease consultation, continue antibiotics per ID. -Hyponatremia, Dr. Zapata is following a nephrology consultation, continue IV fluids per renal. 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 -Ventilator dependent respiratory failure with tracheostomy, continue breathing treatments. 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 -Chronic urinary retention with George catheter -Chemical CODE STATUS Total critical care time spent is 30 mins. Further recommendations based on clinical course. Plan of care discussed with Dr. Dozier.Further recommendations based on clinical course. Plan of care discussed with Dr. Dozier. Subjective 24 Hr Interval Summary Subjective hx not possible: pt critical status Constitutional: requiring IVF, requiring O2 Respiratory: no complaints Cardiovascular: no complaints Gastrointestinal: no complaints Exam/Review of Systems Vital Signs Vitals Vital Signs Date Time Temp Pulse Resp B/P Pulse Ox O2 Delivery O2 Flow Rate FiO2 02/16/17 17:00 124 31 133/94 95 Mechanical Ventilator 02/16/17 16:00 98.4 02/16/17 15:27 30 Intake and Output 02/15/17 02/15/17 02/16/17 15:00 23:00 07:00 Intake Total 1029.999 ml 866.666 ml 680 ml Output Total 495 ml 1025 ml 760 ml Balance 534.999 ml -158.334 ml -80 ml Exam Constitutional: alert Respiratory: clear to auscultation, normal air movement Cardiovascular: nl pulses, regular rate and rhythm Gastrointestinal: soft Musculoskeletal: nl extremities to inspection Neurological: other Skin: other (sacral decub) Results Result Diagram: 02/15/17 0435 02/16/17 0430 Results 24 hrs Laboratory Tests Test 02/15/17 18:59 02/15/17 23:45 02/16/17 04:30 02/16/17 05:06 Bedside Glucose 75 111 83 Sodium Level 138 Potassium Level 3.9 Chloride Level 104 Carbon Dioxide Level 24 Anion Gap 14 Blood Urea Nitrogen 51 H Creatinine 0.80 Glucose Level 76 # Calcium Level 12.9 H Ionized Calcium (Measured) 1.9 H Phosphorus Level 4.0 Magnesium Level 1.7 Test 02/16/17 13:06 Bedside Glucose 74 Medications Medications Current Medications Ondansetron HCl (Zofran Inj) 4 mg Q6H PRN IV NAUSEA AND/OR VOMITING Last administered on 02/05/17 09:36; Admin Dose 4 MG; Start 02/01/17 at 22:30 Acetaminophen (Tylenol Tab) 650 mg Q6H PRN PO PAIN LEVEL 1-3 OR FEVER Last administered on 02/04/17 21:08; Admin Dose 650 MG; Start 02/01/17 at 22:30 Acetaminophen/ Hydrocodone Bitart ([place] (5/325)) 1 tab Q6H PRN PO MODERATE PAIN LEVEL 4-6 Last administered on 02/04/17 21:07; Admin Dose 1 TAB; Start at 22:30 Hydromorphone HCl (Dilaudid) 0.5 mg Q4H PRN IV SEVERE PAIN LEVEL 7-10 Last administered on 02/16/17 13:08; Admin Dose 0.5 MG; Start 02/01/17 at 22:30 Docusate Sodium (Colace) 100 mg Q12H PRN PO CONSTIPATION; Start 02/01/17 at 22: 30 Magnesium Hydroxide (Milk Of Mag) 30 ml DAILY PRN PO CONSTIPATION; Start at 22:30 Bisacodyl (Dulcolax) 5 mg DAILY PRN PO CONSTIPATION; Start 02/01/17 at 22:30 Zolpidem Tartrate (Ambien) 5 mg QHS PRN PO SLEEP; Start 02/01/17 at 22:30 Lansoprazole (Prevacid) 30 mg DAILY@06 GTB Last administered on 02/15/17 06:29 ; Admin Dose 30 MG; Start 02/02/17 at 06:00 Enoxaparin Sodium (Lovenox) 40 mg DAILY SC Last administered on 02/16/17 09:12 ; Admin Dose 40 MG; Start 02/02/17 at 09:00 Ascorbic Acid (Vitamin C) 500 mg BID GTB Last administered on 02/14/17 21:47; Admin Dose 500 MG; Start 02/02/17 at 09:00 Diazepam (Valium) 5 mg DAILY PRN GTB ANXIETY Last administered on 02/08/17 20: 27; Admin Dose 5 MG; Start 02/01/17 at 22:30 Duloxetine HCl (Cymbalta) 20 mg DAILY GTB Last administered on 02/14/17 09:29 ; Admin Dose 20 MG; Start 02/02/17 at 09:00 Multivitamins Therapeutic (Theragran) 1 tab DAILY GTB Last administered on 02/14 09:30; Admin Dose 1 TAB; Start 02/02/17 at 09:00 Zinc Sulfate (Zinc Sulfate) 220 mg DAILY GTB Last administered on 02/14/17 09: 29; Admin Dose 220 MG; Start 02/02/17 at 09:00 Lactobacillus Acidophilus (Florajen3 Capsule) 1 each TID NGT Last administered on 02/14/17 21:47; Admin Dose 1 EACH; Start 02/02/17 at 09:00 Lactulose (Enulose) 20 gm BID PO Last administered on 02/14/17 21:47; Admin Dose 20 GM; Start 02/02/17 at 09:00 Collagenase (Santyl) 1 applic DAILY TOP Last administered on 02/16/17 09:10; Admin Dose 1 APPLIC; Start 02/02/17 at 09:00 Collagenase 1 applic 1 applic PRN PRN TOP PRN; Start 02/02/17 at 04:00 Linezolid 300 ml @ 300 mls/hr Q12 IVPB Last administered on 02/16/17 09:09; Admin Dose 300 MLS/HR; Start 02/09/17 at 15:00 Metronidazole 100 ml @ 100 mls/hr Q8 IVPB Last administered on 02/16/17 14:35 ; Admin Dose 100 MLS/HR; Start 02/09/17 at 14:00 Colistimethate Sodium/Sodium Chloride (Coly-Mycin/NS) 100 ml @ 200 mls/hr Q12H IVPB Last administered on 02/16/17 17:05; Admin Dose 200 MLS/HR; Start at 04:00 Sodium Hypochlorite (Dakin'S (1/4 Strength)) 1 applic DAILY IRR Last administered on 02/16/17 09:09; Admin Dose 1 APPLIC; Start 02/10/17 at 13:30 IV Flush (NS 10 ml) 10 ml PRN PRN IV FLUSH LINE; Start 02/10/17 at 15:30 Mupirocin (Bactroban) 1 applic BID TOP Last administered on 02/16/17 09:10; Admin Dose 1 APPLIC; Start 02/11/17 at 14:00 Dextrose 25 ml 25 ml IACHS PRN IV DECREASED GLUCOSE Last administered on 21:45; Admin Dose 25 ML; Start 02/13/17 at 08:30 Total Parenteral Nutrition (Tpn) 1,000 ml @ 60 mls/hr [id number] IV Last administered on 02/16/17 13:07; Admin Dose 60 MLS/HR; Start 02/13/17 at 16:00 Dextrose (D50w Syringe) 50 ml IV PRN IV DECREASED GLUCOSE Last administered on 02/13/17 18:07; Admin Dose 50 ML; Start 02/13/17 at 14:30 Fentanyl (Duragesic 25 Mcg/Hr Patch) 1 patch Q72H TRANSDERM Last administered on 02/14/17 17:28; Admin Dose 1 PATCH; Start 02/14/17 at 15:30 Diagnostic Test (Pha) (Accu-Chek) 1 ea Q6 XX Last administered on 02/16/17 12: 00; Admin Dose 1 EA; Start 02/14/17 at 18:00 IV Flush (NS 10 ml) 10 ml PRN PRN IV IV PROTOCOL; Start 02/15/17 at 21:30 VIKASH CASTANEDA Feb 16, 2017 17:35
[2017-02-16] MEDS: DEXTROSE 50% 50 ML SYRINGE IV PRN ×3 (18:22→23:41)
--- NOTE | 2017-02-16 18:30 | CONS ---
Date/Time of Note Date/Time of Note DATE: 02/16/17 TIME: 18:30 Assessment/Plan Assessment/Plan Chief Complaint/Hosp Course -Anemia, POST PRBC transfuse packed red blood cells as needed continue to monitor H&H. COMPLEX, MULTIFACTORIAL -Left lung squamous carcinoma, NOW WITH POS LIVER METS supportive care no aggressive treatment planned HYPERCALCEMIA POST AREDIA - SBO NOW ON CONSERVATIVE MANAGEMENT -Sepsis, most likely secondary to urinary tract infection and possible postobstructive pneumonia. Dr. Coleman is following infection disease consultation, follow-up on cultures, continue antibiotics per ID. -Hyponatremia, nephrology f-up, continue IV fluids per renal. -Ventilator dependent respiratory failure with tracheostomy, continue breathing treatments. -COPD -Dysphagia with PEG -History of cardiopulmonary arrest -Multiple wounds present on admission, that is post debridement at last admission. -Hypothyroidism -Chronic urinary retention with George catheter PROGNOSIS- POOR Problems: Consultation Date/Type/Reason Admit Date/Time Feb 01, 2017 at 15:50 Initial Consult Date 02/08/17 [facility] Referring Provider: DRE LOBATO MD 24 HR Interval Summary Free Text/Dictation ALL NOTED D/W RN Exam/Review of Systems Vital Signs Vitals Vital Signs Date Time Temp Pulse Resp B/P Pulse Ox O2 Delivery O2 Flow Rate FiO2 02/16/17 17:38 112 29 96 30 02/16/17 17:00 133/94 Mechanical Ventilator 02/16/17 16:00 98.4 Intake and Output 02/15/17 02/15/17 02/16/17 15:00 23:00 07:00 Intake Total 1029.999 ml 866.666 ml 680 ml Output Total 495 ml 1025 ml 760 ml Balance 534.999 ml -158.334 ml -80 ml Exam Constitutional: awake, No distress Psych: anxious Head: atraumatic, normocephalic Eyes: nl conjunctiva, nl lids, nl sclera ENMT: mucosa pink and dry, nl external ears & nose, nl lips & teeth; ng tube Neck: non-tender, other (tracheostomy, non-reddened, no drainage noted), supple Respiratory: normal effort, no wheezing, min thin sputum Cardiovascular: nl pulses, regular rate and rhythm Gastrointestinal: non-tender, other (gtube, site non-tender, non-reddened), distention improved; hypoactive bowel sounds Musculoskeletal: nl extremities to inspection Extremities: normal pulses, extremity Edema +2 Neurological: nl mental status, No nl strength (gen weakness) Skin: No rash; wounds (sacral wound pink woundbed min slough with min/mod drainage) Results Result Diagram: 02/15/17 0435 02/16/17 0430 Results 24 hrs Laboratory Tests Test 02/15/17 18:59 02/15/17 23:45 02/16/17 04:30 02/16/17 05:06 Bedside Glucose 75 111 83 Sodium Level 138 Potassium Level 3.9 Chloride Level 104 Carbon Dioxide Level 24 Anion Gap 14 Blood Urea Nitrogen 51 H Creatinine 0.80 Glucose Level 76 # Calcium Level 12.9 H Ionized Calcium (Measured) 1.9 H Phosphorus Level 4.0 Magnesium Level 1.7 Test 02/16/17 13:06 02/16/17 18:11 Bedside Glucose 74 62 L Medications Medications Current Medications Ondansetron HCl (Zofran Inj) 4 mg Q6H PRN IV NAUSEA AND/OR VOMITING Last administered on 02/05/17 09:36; Admin Dose 4 MG; Start 02/01/17 at 22:30 Acetaminophen (Tylenol Tab) 650 mg Q6H PRN PO PAIN LEVEL 1-3 OR FEVER Last administered on 02/04/17 21:08; Admin Dose 650 MG; Start 02/01/17 at 22:30 Acetaminophen/ Hydrocodone Bitart ([place] (5/325)) 1 tab Q6H PRN PO MODERATE PAIN LEVEL 4-6 Last administered on 02/04/17 21:07; Admin Dose 1 TAB; Start at 22:30 Hydromorphone HCl (Dilaudid) 0.5 mg Q4H PRN IV SEVERE PAIN LEVEL 7-10 Last administered on 02/16/17 13:08; Admin Dose 0.5 MG; Start 02/01/17 at 22:30 Docusate Sodium (Colace) 100 mg Q12H PRN PO CONSTIPATION; Start 02/01/17 at 22: 30 Magnesium Hydroxide (Milk Of Mag) 30 ml DAILY PRN PO CONSTIPATION; Start at 22:30 Bisacodyl (Dulcolax) 5 mg DAILY PRN PO CONSTIPATION; Start 02/01/17 at 22:30 Zolpidem Tartrate (Ambien) 5 mg QHS PRN PO SLEEP; Start 02/01/17 at 22:30 Lansoprazole (Prevacid) 30 mg DAILY@06 GTB Last administered on 02/15/17 06:29 ; Admin Dose 30 MG; Start 02/02/17 at 06:00 Enoxaparin Sodium (Lovenox) 40 mg DAILY SC Last administered on 02/16/17 09:12 ; Admin Dose 40 MG; Start 02/02/17 at 09:00 Ascorbic Acid (Vitamin C) 500 mg BID GTB Last administered on 02/14/17 21:47; Admin Dose 500 MG; Start 02/02/17 at 09:00 Diazepam (Valium) 5 mg DAILY PRN GTB ANXIETY Last administered on 02/08/17 20: 27; Admin Dose 5 MG; Start 02/01/17 at 22:30 Duloxetine HCl (Cymbalta) 20 mg DAILY GTB Last administered on 02/14/17 09:29 ; Admin Dose 20 MG; Start 02/02/17 at 09:00 Multivitamins Therapeutic (Theragran) 1 tab DAILY GTB Last administered on 02/14 09:30; Admin Dose 1 TAB; Start 02/02/17 at 09:00 Zinc Sulfate (Zinc Sulfate) 220 mg DAILY GTB Last administered on 02/14/17 09: 29; Admin Dose 220 MG; Start 02/02/17 at 09:00 Lactobacillus Acidophilus (Florajen3 Capsule) 1 each TID NGT Last administered on 02/14/17 21:47; Admin Dose 1 EACH; Start 02/02/17 at 09:00 Lactulose (Enulose) 20 gm BID PO Last administered on 02/14/17 21:47; Admin Dose 20 GM; Start 02/02/17 at 09:00 Collagenase (Santyl) 1 applic DAILY TOP Last administered on 02/16/17 09:10; Admin Dose 1 APPLIC; Start 02/02/17 at 09:00 Collagenase 1 applic 1 applic PRN PRN TOP PRN; Start 02/02/17 at 04:00 Linezolid 300 ml @ 300 mls/hr Q12 IVPB Last administered on 02/16/17 09:09; Admin Dose 300 MLS/HR; Start 02/09/17 at 15:00 Metronidazole 100 ml @ 100 mls/hr Q8 IVPB Last administered on 02/16/17 14:35 ; Admin Dose 100 MLS/HR; Start 02/09/17 at 14:00 Colistimethate Sodium/Sodium Chloride (Coly-Mycin/NS) 100 ml @ 200 mls/hr Q12H IVPB Last administered on 02/16/17 17:05; Admin Dose 200 MLS/HR; Start at 04:00 Sodium Hypochlorite (Dakin'S (1/4 Strength)) 1 applic DAILY IRR Last administered on 02/16/17 09:09; Admin Dose 1 APPLIC; Start 02/10/17 at 13:30 IV Flush (NS 10 ml) 10 ml PRN PRN IV FLUSH LINE; Start 02/10/17 at 15:30 Mupirocin (Bactroban) 1 applic BID TOP Last administered on 02/16/17 09:10; Admin Dose 1 APPLIC; Start 02/11/17 at 14:00 Dextrose 25 ml 25 ml IACHS PRN IV DECREASED GLUCOSE Last administered on 18:22; Admin Dose 25 ML; Start 02/13/17 at 08:30 Total Parenteral Nutrition (Tpn) 1,000 ml @ 60 mls/hr [id number] IV Last administered on 02/16/17 13:07; Admin Dose 60 MLS/HR; Start 02/13/17 at 16:00 Dextrose (D50w Syringe) 50 ml IV PRN IV DECREASED GLUCOSE Last administered on 02/13/17 18:07; Admin Dose 50 ML; Start 02/13/17 at 14:30 Fentanyl (Duragesic 25 Mcg/Hr Patch) 1 patch Q72H TRANSDERM Last administered on 02/14/17 17:28; Admin Dose 1 PATCH; Start 02/14/17 at 15:30 Diagnostic Test (Pha) (Accu-Chek) 1 ea Q6 XX Last administered on 02/16/17 18: 16; Admin Dose 1 EA; Start 02/14/17 at 18:00 IV Flush (NS 10 ml) 10 ml PRN PRN IV IV PROTOCOL; Start 02/15/17 at 21:30 DYLLAN CARRION MD Feb 16, 2017 18:30
--- NOTE | 2017-02-16 22:47 | PN ---
Date/Time of Note Date/Time of Note DATE: 02/16/17 TIME: 22:33 Assessment/Plan Lines/Catheters IV Catheter Type (from Nrs): PICC Line Story in Place (from Nrs): Yes Assessment/Plan Chief Complaint/Hosp Course 1. 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 Multiple decubitus ulcers with debris, with likely osteo -Offload -Optimize nutrition -Vitamin C -Local care with dakins -Debridement sacrococcyx prn when patient medically stable 3. Abdominal distention: possible ileus (likely) vs. obstruction; pt with ng tube for decompression, no BM currently; sbft results noted; CT noted; -close monitoring 4. Sepsis with hypotension and hypoglycemia: UTI +/- Bacteremia +/- PNA + wounds : off pressors; s/p decadron -supportive -abx per sensitivities -pulmonary toilette (titrating down) -optimize blood sugar 5. Acute on chronic diastolic heart failure -Judicious fluid management -Cardiac optimization 6. Hypoalbuminemia: inflammation/infection +/- malnutrition -as above -nutrition optimization 7. Depression. -Medical management 8. Hypothyroidism by history; TSH elevated -Synthroid 9. .Normocytic anemia: chronic disease vs. acute bleed; no rogerio bleed noted: s /p PRBC transfusion -monitor -transfuse as needed - per heme/onc 10. Chronic pain syndrome: patient with metastasis -continue pain management 11. UTI: -abx per sensitivity/ID 12. Leukocytosis with bandemia: 2/2 multifactorial: bacteremia, uti, wounds, sbo : minimally improved -abx per sensitivity -supportive 13. Chronic urinary retention with Story -perineal care -story care 14. Severe hyponatremia: improving -per renal -judicious fluids Patient seen and examined in collaboration with Dr. Christian Sinclair. Thank you. Problems: Subjective 24 Hr Interval Summary More awake. No BM/flatus however CT shows improved distention from small bowel and contrast material reaches colon.Leukocytosis minimally improved. Continues to have large green output per NGT.No fevers, chills, sob, congested cough, cp, palpitations. Comfortable on vent Exam/Review of Systems Vital Signs Vitals Vital Signs Date Time Temp Pulse Resp B/P Pulse Ox O2 Delivery O2 Flow Rate FiO2 02/16/17 21:31 116 33 97 30 02/16/17 21:00 108/82 Mechanical Ventilator 02/16/17 20:00 99.1 Intake and Output 02/15/17 02/15/17 02/16/17 15:00 23:00 07:00 Intake Total 1029.999 ml 866.666 ml 680 ml Output Total 495 ml 1025 ml 760 ml Balance 534.999 ml -158.334 ml -80 ml Exam Free Text/Dictation Constitutional: awake but sleepy, (trached), oriented, No distress Psych: anxious Head: atraumatic, normocephalic Eyes: nl conjunctiva, nl lids, nl sclera ENMT: mucosa pink and moist, nl external ears & nose, nl lips & teeth; ng tube Neck: non-tender, other (tracheostomy, non-reddened, no drainage noted), supple Respiratory: normal effort, no wheezing, min thin sputum Cardiovascular: nl pulses, regular rate and rhythm Gastrointestinal: non-tender, other (gtube, site non-tender, non-reddened), continues to have mod distention minimally improved; hypoactive bowel sounds Musculoskeletal: nl extremities to inspection Extremities: normal pulses, extremity Edema +2 Neurological: nl mental status, No nl strength (gen weakness) Skin: No rash; wounds (sacral wound pink woundbed min slough with min/mod dry drainage) Results Result Diagram: 02/15/17 0435 02/16/17 0430 JERRY SAHU NP Feb 16, 2017 22:46
[2017-02-17] VITALS (62 sets, daily range): BP systolic 65–142; BP diastolic 47–99; PULSE 88–126; RESP 20–33
[2017-02-17] MEDS: IPRATROPIUM (HFA) 12.9 GM INHALER INH SCH ×4 (01:19→19:15)
[2017-02-17] MEDS: ALBUTEROL 18 GM INHALER INH SCH ×4 (01:19→19:15)
[2017-02-17] MEDS: TPN 1,000 ML IV SCH ×2 (03:35→16:57)
[2017-02-17 05:25] LABS: ABNORMAL IP MESSAGE 1; BASOPHILS % 0.2 % (0.0-2.0); EOSINOPHILS # 0.2 10^3/ul (0.0-0.5); EOSINOPHILS % 1.4 % (0.0-7.0); HEMATOCRIT 25.2 % (37.0-47.0); HEMOGLOBIN 7.9 g/dl (12.0-16.0); LYMPHOCYTES # 2.3 10^3/ul (0.8-2.9); LYMPHOCYTES % 19.2 % (15.0-51.0); MEAN CORPUSCULAR HEMOGLOBIN 26.7 pg (29.0-33.0); MEAN CORPUSCULAR HGB CONC 31.3 g/dl (32.0-37.0); MEAN CORPUSCULAR VOLUME 85.1 fl (82.0-101.0); MEAN PLATELET VOLUME 8.5 fl (7.4-10.4); MONOCYTE # 1.6 10^3/ul (0.3-0.9); MONOCYTES % 13.2 % (0.0-11.0); NEUTROPHILS % 63.4 % (39.0-77.0); PLATELET COUNT 186 10^3/UL (140-415); RED BLOOD COUNT 2.96 10^6/ul (4.20-5.40); RED CELL DISTRIBUTION WIDTH 17.7 % (11.5-14.5); WHITE BLOOD COUNT 12.2 10^3/ul (4.8-10.8)
[2017-02-17] MEDS: COLISTIMETHATE 100 MG in SOD CHLORIDE 0.9% 100 ML IVPB SCH ×2 (05:25→15:55)
[2017-02-17] MEDS: metroNIDAZOLE 500 MG/NS (PMX) 100 ML IVPB SCH ×3 (05:25→21:21)
[2017-02-17] MEDS: ACCU-CHEK XX SCH ×3 (05:25→18:00)
[2017-02-17] MEDS: LANSOPRAZOLE 30 MG CAP GTB SCH (05:25)
[2017-02-17] MEDS: DEXTROSE 50% 50 ML SYRINGE IV PRN (05:31)
[2017-02-17 05:46] LABS: POSITIVE DIFF @See below
[2017-02-17 05:57] LABS: CALCIUM 12.7 mg/dl (8.4-10.2); CREATININE 0.79 mg/dl (0.44-1.00); MAGNESIUM 1.6 mg/dl (1.7-2.5); PHOSPHORUS 2.5 mg/dl (2.5-4.9); POTASSIUM 3.4 mmol/L (3.5-5.1)
[2017-02-17] MEDS ORDERED: NORepinephrine 8MG/250 ML (PMX 250 ML IV SCH (07:00)
[2017-02-17] MEDS: DEXTROSE 5%-0.9% NACL 1,000 ML IV SCH (07:04)
[2017-02-17] MEDS ORDERED: DEXAMETHASONE 4 MG/ML 1 ML INJ IV ONE (08:30)
[2017-02-17] MEDS: LACTULOSE 30ML CUP PO SCH ×2 (09:00→21:00)
--- NOTE | 2017-02-17 09:36 | PN ---
Date/Time of Note Date/Time of Note DATE: 02/17/17 TIME: 09:35 Assessment/Plan VTE Prophylaxis VTE Prophylaxis Intervention: other Lines/Catheters IV Catheter Type (from [facility] PICC Line Central line still needed: Yes Urinary Cath still in place: Yes Reason Cath still needed: skin wounds contaminated by urine Assessment/Plan Chief Complaint/Hosp Course -Small bowel obstruction. Continue G-tube to low wall suctioning. Dr Gonzales is following in gastroenterology consultation. - sp CT Abdomen- result pending. fu -Sepsis, most likely secondary to urinary tract infection and possible postobstructive pneumonia. Dr. Coleman is following infection disease consultation, continue antibiotics per ID. -Hyponatremia, Dr. Zapata is following a nephrology consultation, continue IV fluids per renal. 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 -Ventilator dependent respiratory failure with tracheostomy, continue breathing treatments. 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 -Chronic urinary retention with George catheter -Chemical CODE STATUS Problems: Subjective 24 Hr Interval Summary Free Text/Dictation Patient is sedated, not responsive to voice or touch Exam/Review of Systems Vital Signs Vitals Vital Signs Date Time Temp Pulse Resp B/P Pulse Ox O2 Delivery O2 Flow Rate FiO2 02/17/17 06:00 103 30 106/76 99 Mechanical Ventilator 02/17/17 05:41 30 02/17/17 04:00 98.4 Intake and Output 02/16/17 02/16/17 02/17/17 15:00 23:00 07:00 Intake Total 480 ml 380 ml Output Total 1365 ml 1250 ml 875 ml Balance -885 ml -870 ml -875 ml Exam Constitutional: well developed Head: atraumatic, normocephalic Neck: supple Respiratory: diminished breath sounds Cardiovascular: regular rate and rhythm Gastrointestinal: non-tender, soft Extremities: normal pulses Results Result Diagram: 02/17/17 0430 02/17/17 0430 Results 24 hrs Laboratory Tests Test 02/16/17 13:06 02/16/17 18:11 02/16/17 18:45 02/16/17 19:33 Bedside Glucose 74 62 L 98 74 Test 02/16/17 20:02 02/16/17 20:25 02/16/17 23:36 02/17/17 01:25 Bedside Glucose 68 L 94 63 L 77 Test 02/17/17 04:30 02/17/17 05:24 02/17/17 06:30 White Blood Count 12.2 #H Red Blood Count 2.96 L Hemoglobin 7.9 L Hematocrit 25.2 L Mean Corpuscular Volume 85.1 Mean Corpuscular Hemoglobin 26.7 L Mean Corpuscular Hemoglobin Concent 31.3 L Red Cell Distribution Width 17.7 H Platelet Count 186 # Mean Platelet Volume 8.5 Neutrophils % 63.4 Lymphocytes % 19.2 Monocytes % 13.2 H Eosinophils % 1.4 Basophils % 0.2 Nucleated Red Blood Cells % 0.0 Neutrophils # (Manual) 7.7 H Lymphocytes # 2.3 Monocytes # 1.6 H Eosinophils # 0.2 Basophils # 0.0 Nucleated Red Blood Cells # 0.0 Sodium Level 142 Potassium Level 3.4 L Chloride Level 109 Carbon Dioxide Level 25 Anion Gap 11 Blood Urea Nitrogen 56 H Creatinine 0.79 Glucose Level 56 #L Calcium Level 12.7 H Phosphorus Level 2.5 Magnesium Level 1.6 L Bedside Glucose 63 L 74 Medications Medications Current Medications Ondansetron HCl (Zofran Inj) 4 mg Q6H PRN IV NAUSEA AND/OR VOMITING Last administered on 02/05/17 09:36; Admin Dose 4 MG; Start 02/01/17 at 22:30 Acetaminophen (Tylenol Tab) 650 mg Q6H PRN PO PAIN LEVEL 1-3 OR FEVER Last administered on 02/04/17 21:08; Admin Dose 650 MG; Start 02/01/17 at 22:30 Acetaminophen/ Hydrocodone Bitart ([place] (5/325)) 1 tab Q6H PRN PO MODERATE PAIN LEVEL 4-6 Last administered on 02/04/17 21:07; Admin Dose 1 TAB; Start at 22:30 Hydromorphone HCl (Dilaudid) 0.5 mg Q4H PRN IV SEVERE PAIN LEVEL 7-10 Last administered on 02/16/17 13:08; Admin Dose 0.5 MG; Start 02/01/17 at 22:30 Docusate Sodium (Colace) 100 mg Q12H PRN PO CONSTIPATION; Start 02/01/17 at 22: 30 Magnesium Hydroxide (Milk Of Mag) 30 ml DAILY PRN PO CONSTIPATION; Start at 22:30 Bisacodyl (Dulcolax) 5 mg DAILY PRN PO CONSTIPATION; Start 02/01/17 at 22:30 Zolpidem Tartrate (Ambien) 5 mg QHS PRN PO SLEEP; Start 02/01/17 at 22:30 Lansoprazole (Prevacid) 30 mg DAILY@06 GTB Last administered on 02/15/17 06:29 ; Admin Dose 30 MG; Start 02/02/17 at 06:00 Enoxaparin Sodium (Lovenox) 40 mg DAILY SC Last administered on 02/16/17 09:12 ; Admin Dose 40 MG; Start 02/02/17 at 09:00 Ascorbic Acid (Vitamin C) 500 mg BID GTB Last administered on 02/14/17 21:47; Admin Dose 500 MG; Start 02/02/17 at 09:00 Diazepam (Valium) 5 mg DAILY PRN GTB ANXIETY Last administered on 02/08/17 20: 27; Admin Dose 5 MG; Start 02/01/17 at 22:30 Duloxetine HCl (Cymbalta) 20 mg DAILY GTB Last administered on 02/14/17 09:29 ; Admin Dose 20 MG; Start 02/02/17 at 09:00 Multivitamins Therapeutic (Theragran) 1 tab DAILY GTB Last administered on 02/14 09:30; Admin Dose 1 TAB; Start 02/02/17 at 09:00 Zinc Sulfate (Zinc Sulfate) 220 mg DAILY GTB Last administered on 02/14/17 09: 29; Admin Dose 220 MG; Start 02/02/17 at 09:00 Lactobacillus Acidophilus (Florajen3 Capsule) 1 each TID NGT Last administered on 02/14/17 21:47; Admin Dose 1 EACH; Start 02/02/17 at 09:00 Lactulose (Enulose) 20 gm BID PO Last administered on 02/14/17 21:47; Admin Dose 20 GM; Start 02/02/17 at 09:00 Collagenase (Santyl) 1 applic DAILY TOP Last administered on 02/16/17 09:10; Admin Dose 1 APPLIC; Start 02/02/17 at 09:00 Collagenase 1 applic 1 applic PRN PRN TOP PRN; Start 02/02/17 at 04:00 Linezolid 300 ml @ 300 mls/hr Q12 IVPB Last administered on 02/16/17 20:21; Admin Dose 300 MLS/HR; Start 02/09/17 at 15:00 Metronidazole 100 ml @ 100 mls/hr Q8 IVPB Last administered on 02/17/17 05:25 ; Admin Dose 100 MLS/HR; Start 02/09/17 at 14:00 Colistimethate Sodium/Sodium Chloride (Coly-Mycin/NS) 100 ml @ 200 mls/hr Q12H IVPB Last administered on 02/17/17 05:25; Admin Dose 200 MLS/HR; Start at 04:00 Sodium Hypochlorite (Dakin'S (1/4 Strength)) 1 applic DAILY IRR Last administered on 02/16/17 09:09; Admin Dose 1 APPLIC; Start 02/10/17 at 13:30 IV Flush (NS 10 ml) 10 ml PRN PRN IV FLUSH LINE; Start 02/10/17 at 15:30 Mupirocin (Bactroban) 1 applic BID TOP Last administered on 02/16/17 20:22; Admin Dose 1 APPLIC; Start 02/11/17 at 14:00 Dextrose 25 ml 25 ml IACHS PRN IV DECREASED GLUCOSE Last administered on 05:31; Admin Dose 25 ML; Start 02/13/17 at 08:30 Total Parenteral Nutrition (Tpn) 1,000 ml @ 60 mls/hr [id number] IV Last administered on 02/17/17 03:35; Admin Dose 60 MLS/HR; Start 02/13/17 at 16:00 Dextrose (D50w Syringe) 50 ml IV PRN IV DECREASED GLUCOSE Last administered on 02/13/17 18:07; Admin Dose 50 ML; Start 02/13/17 at 14:30 Fentanyl (Duragesic 25 Mcg/Hr Patch) 1 patch Q72H TRANSDERM Last administered on 02/14/17 17:28; Admin Dose 1 PATCH; Start 02/14/17 at 15:30 Diagnostic Test (Pha) (Accu-Chek) 1 ea Q6 XX Last administered on 02/17/17 05: 25; Admin Dose 1 EA; Start 02/14/17 at 18:00 IV Flush 10 ml 10 ml PRN PRN IV IV PROTOCOL; Start 02/15/17 at 21:30 Dextrose/Sodium Chloride 1,000 ml @ 50 mls/hr Q20H IV Last administered on 02/17 07:04; Admin Dose 50 MLS/HR; Start 02/17/17 at 07:00 Norepinephrine 250 ml @ 1.875 mls/ hr TITRATE IV Last administered on 08:39; Admin Dose 3.75 MLS/HR; Start 02/17/17 at 07:00; Stop 02/17/17 at 10: 59 Norepinephrine/ Dextrose (Levophed/D5W) 500 ml @ 1.87 mls/hr TITRATE IV ; Start 02/17/17 at 11:00 MICHAEL HOROWITZ Feb 17, 2017 09:36
[2017-02-17] MEDS: MULTIVITAMINS THERAPEUTIC TAB GTB SCH (09:40)
[2017-02-17] MEDS: DULOXETINE 20 MG CAP DR GTB SCH (09:40)
[2017-02-17] MEDS: LINEZOLID 600 MG/D5W (PMX) 300 ML IVPB SCH ×2 (09:40→21:21)
[2017-02-17] MEDS: ASCORBIC ACID 500 MG TAB GTB SCH ×2 (09:40→21:21)
[2017-02-17] MEDS: L ACIDOPHIL/B LACTIS/B LONGUM CAPSULE NGT SCH ×3 (09:40→21:21)
[2017-02-17] MEDS: ZINC SULFATE 220 MG CAP GTB SCH (09:40)
[2017-02-17] MEDS: SODIUM HYPOCHLORITE 0.125% 473 ML BTL IRR SCH (09:41)
[2017-02-17] MEDS: COLLAGENASE 30 GM TUBE TOP SCH (09:41)
[2017-02-17] MEDS: MUPIROCIN 2% 22 GM OINT TOP SCH ×2 (09:41→21:21)
[2017-02-17] MEDS: ENOXAPARIN 40 MG/0.4 ML SYG SC SCH (09:43)
--- NOTE | 2017-02-17 10:34 | CONS ---
Date/Time of Note Date/Time of Note DATE: 02/17/17 TIME: 10:28 Consult Date/Type/Reason Admit Date/Time Feb 01, 2017 at 15:50 Initial Consult Date 02/01/17 Type of Consultation: Pulm Ordering Provider: DRE LOBATO MD Subjective Continues vasopressors. Neurologically unchanged, Objective Vital Signs Date Time Temp Pulse Resp B/P Pulse Ox O2 Delivery O2 Flow Rate FiO2 02/17/17 06:00 103 30 106/76 99 Mechanical Ventilator 02/17/17 05:41 30 02/17/17 04:00 98.4 Intake and Output 02/16/17 02/16/17 02/17/17 15:00 23:00 07:00 Intake Total 480 ml 380 ml Output Total 1365 ml 1250 ml 875 ml Balance -885 ml -870 ml -875 ml Exam PHYSICAL EXAMINATION GENERAL: Elderly lady on mechanical ventilation via tracheostomy VITAL SIGNS: see below. HEENT: Pupils equal, round, and reactive to light. CARDIAC: S1, S2, 1/6 systolic ejection murmur CHEST: Diminished air entry bilaterally. ABDOMEN: Mildly distended. Bowel sounds present no guarding or rebound EXTREMITIES: No cyanosis, clubbing edema +1 NEUROLOGIC: Generalized weakness Results/Medications Result Diagram: 02/17/17 0430 02/17/17 0430 Results 24 hrs Laboratory Tests Test 02/16/17 13:06 02/16/17 18:11 02/16/17 18:45 02/16/17 19:33 Bedside Glucose 74 62 L 98 74 Test 02/16/17 20:02 02/16/17 20:25 02/16/17 23:36 02/17/17 01:25 Bedside Glucose 68 L 94 63 L 77 Test 02/17/17 04:30 02/17/17 05:24 02/17/17 06:30 White Blood Count 12.2 #H Red Blood Count 2.96 L Hemoglobin 7.9 L Hematocrit 25.2 L Mean Corpuscular Volume 85.1 Mean Corpuscular Hemoglobin 26.7 L Mean Corpuscular Hemoglobin Concent 31.3 L Red Cell Distribution Width 17.7 H Platelet Count 186 # Mean Platelet Volume 8.5 Neutrophils % 63.4 Lymphocytes % 19.2 Monocytes % 13.2 H Eosinophils % 1.4 Basophils % 0.2 Nucleated Red Blood Cells % 0.0 Neutrophils # (Manual) 7.7 H Lymphocytes # 2.3 Monocytes # 1.6 H Eosinophils # 0.2 Basophils # 0.0 Nucleated Red Blood Cells # 0.0 Sodium Level 142 Potassium Level 3.4 L Chloride Level 109 Carbon Dioxide Level 25 Anion Gap 11 Blood Urea Nitrogen 56 H Creatinine 0.79 Glucose Level 56 #L Calcium Level 12.7 H Phosphorus Level 2.5 Magnesium Level 1.6 L Bedside Glucose 63 L 74 Medications Current Medications Ondansetron HCl (Zofran Inj) 4 mg Q6H PRN IV NAUSEA AND/OR VOMITING Last administered on 02/05/17 09:36; Admin Dose 4 MG; Start 02/01/17 at 22:30 Acetaminophen (Tylenol Tab) 650 mg Q6H PRN PO PAIN LEVEL 1-3 OR FEVER Last administered on 02/04/17 21:08; Admin Dose 650 MG; Start 02/01/17 at 22:30 Acetaminophen/ Hydrocodone Bitart ([place] (5/325)) 1 tab Q6H PRN PO MODERATE PAIN LEVEL 4-6 Last administered on 02/04/17 21:07; Admin Dose 1 TAB; Start at 22:30 Hydromorphone HCl (Dilaudid) 0.5 mg Q4H PRN IV SEVERE PAIN LEVEL 7-10 Last administered on 02/16/17 13:08; Admin Dose 0.5 MG; Start 02/01/17 at 22:30 Docusate Sodium (Colace) 100 mg Q12H PRN PO CONSTIPATION; Start 02/01/17 at 22: 30 Magnesium Hydroxide (Milk Of Mag) 30 ml DAILY PRN PO CONSTIPATION; Start at 22:30 Bisacodyl (Dulcolax) 5 mg DAILY PRN PO CONSTIPATION; Start 02/01/17 at 22:30 Zolpidem Tartrate (Ambien) 5 mg QHS PRN PO SLEEP; Start 02/01/17 at 22:30 Lansoprazole (Prevacid) 30 mg DAILY@06 GTB Last administered on 02/15/17 06:29 ; Admin Dose 30 MG; Start 02/02/17 at 06:00 Enoxaparin Sodium (Lovenox) 40 mg DAILY SC Last administered on 02/17/17 09:43 ; Admin Dose 40 MG; Start 02/02/17 at 09:00 Ascorbic Acid (Vitamin C) 500 mg BID GTB Last administered on 02/17/17 09:40; Admin Dose 500 MG; Start 02/02/17 at 09:00 Diazepam (Valium) 5 mg DAILY PRN GTB ANXIETY Last administered on 02/08/17 20: 27; Admin Dose 5 MG; Start 02/01/17 at 22:30 Duloxetine HCl (Cymbalta) 20 mg DAILY GTB Last administered on 02/17/17 09:40; Admin Dose 20 MG; Start 02/02/17 at 09:00 Multivitamins Therapeutic (Theragran) 1 tab DAILY GTB Last administered on 09:40; Admin Dose 1 TAB; Start 02/02/17 at 09:00 Zinc Sulfate (Zinc Sulfate) 220 mg DAILY GTB Last administered on 02/17/17 09: 40; Admin Dose 220 MG; Start 02/02/17 at 09:00 Lactobacillus Acidophilus (Florajen3 Capsule) 1 each TID NGT Last administered on 02/17/17 09:40; Admin Dose 1 EACH; Start 02/02/17 at 09:00 Lactulose (Enulose) 20 gm BID PO Last administered on 02/14/17 21:47; Admin Dose 20 GM; Start 02/02/17 at 09:00 Collagenase (Santyl) 1 applic DAILY TOP Last administered on 02/17/17 09:41; Admin Dose 1 APPLIC; Start 02/02/17 at 09:00 Collagenase 1 applic 1 applic PRN PRN TOP PRN; Start 02/02/17 at 04:00 Linezolid 300 ml @ 300 mls/hr Q12 IVPB Last administered on 02/17/17 09:40; Admin Dose 300 MLS/HR; Start 02/09/17 at 15:00 Metronidazole 100 ml @ 100 mls/hr Q8 IVPB Last administered on 02/17/17 05:25 ; Admin Dose 100 MLS/HR; Start 02/09/17 at 14:00 Colistimethate Sodium/Sodium Chloride (Coly-Mycin/NS) 100 ml @ 200 mls/hr Q12H IVPB Last administered on 02/17/17 05:25; Admin Dose 200 MLS/HR; Start at 04:00 Sodium Hypochlorite (Dakin'S (1/4 Strength)) 1 applic DAILY IRR Last administered on 02/17/17 09:41; Admin Dose 1 APPLIC; Start 02/10/17 at 13:30 IV Flush (NS 10 ml) 10 ml PRN PRN IV FLUSH LINE; Start 02/10/17 at 15:30 Mupirocin (Bactroban) 1 applic BID TOP Last administered on 02/17/17 09:41; Admin Dose 1 APPLIC; Start 02/11/17 at 14:00 Dextrose 25 ml 25 ml IACHS PRN IV DECREASED GLUCOSE Last administered on 05:31; Admin Dose 25 ML; Start 02/13/17 at 08:30 Total Parenteral Nutrition (Tpn) 1,000 ml @ 60 mls/hr [id number] IV Last administered on 02/17/17 03:35; Admin Dose 60 MLS/HR; Start 02/13/17 at 16:00 Dextrose (D50w Syringe) 50 ml IV PRN IV DECREASED GLUCOSE Last administered on 02/13/17 18:07; Admin Dose 50 ML; Start 02/13/17 at 14:30 Fentanyl (Duragesic 25 Mcg/Hr Patch) 1 patch Q72H TRANSDERM Last administered on 02/14/17 17:28; Admin Dose 1 PATCH; Start 02/14/17 at 15:30 Diagnostic Test (Pha) (Accu-Chek) 1 ea Q6 XX Last administered on 02/17/17 05: 25; Admin Dose 1 EA; Start 02/14/17 at 18:00 IV Flush 10 ml 10 ml PRN PRN IV IV PROTOCOL; Start 02/15/17 at 21:30 Dextrose/Sodium Chloride 1,000 ml @ 50 mls/hr Q20H IV Last administered on 02/17 07:04; Admin Dose 50 MLS/HR; Start 02/17/17 at 07:00 Norepinephrine 250 ml @ 1.875 mls/ hr TITRATE IV Last administered on 08:39; Admin Dose 3.75 MLS/HR; Start 02/17/17 at 07:00; Stop 02/17/17 at 10: 59 Norepinephrine/ Dextrose (Levophed/D5W) 500 ml @ 1.87 mls/hr TITRATE IV ; Start 02/17/17 at 11:00 Assessment/Plan Chief Complaint/Hosp Course Assessment 1. Vent dependent respiratory failure 2. Septic shock with multiorgan failure. 3. Advanced lung cancer 4. Persistent leukocytosis 5. Lactic acidosis 6. Ileus 7. Anemia of chronic disease. No evidence of acute GI bleed. Plan 1. Continue mechanical ventilation 2. continue broad-spectrum antibiotics 3. Surgical recommendations 4. DVT GI prophylaxis 5. Hold off on PRBC today. Overall prognosis very poor. Agree with DNR CODE STATUS. consider palliative care consult. Problems: CASSIE VACA MD, [facility] Feb 17, 2017 10:34
[2017-02-17] MEDS: POTASSIUM CHLORIDE 50 ML IVPB PRN ×2 (10:59→12:58)
--- NOTE | 2017-02-17 11:20 | PN ---
Date/Time of Note Date/Time of Note DATE: 02/17/17 TIME: 11:09 Assessment/Plan Lines/Catheters IV Catheter Type (from Nrs): PICC Line Story in Place (from Nrs): Yes Assessment/Plan Chief Complaint/Hosp Course 1. 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 Multiple decubitus ulcers with debris, with likely osteo -Offload -Optimize nutrition -Vitamin C -Local care with dakins -Debridement sacrococcyx prn when patient medically stable 3. Abdominal distention: possible ileus (likely) vs. obstruction; pt with ng tube for decompression; diarrhea in am -close monitoring 4. Sepsis with tachycardia, hypotension and hypoglycemia: UTI +/- Bacteremia +/ - PNA + wounds + above: pressors again this am -supportive -abx per sensitivities -pulmonary toilet (titrating down) -optimize blood sugar 5. Acute on chronic diastolic heart failure -Judicious fluid management -Cardiac optimization 6. Hypoalbuminemia: inflammation/infection +/- malnutrition -as above -nutrition optimization 7. Depression. -Medical management 8. Hypothyroidism by history; TSH elevated -Synthroid adjustment per medicine 9. Normocytic anemia: chronic disease vs. acute bleed; no rogerio bleed noted: s/ p PRBC transfusion -monitor -transfuse as needed - per heme/onc 10. Chronic pain syndrome: patient with metastasis -continue pain management; consider non narcotic adjuncts 11. UTI: -abx per sensitivity/ID 12. Leukocytosis with bandemia: improved -as above 13. Chronic urinary retention with Story -perineal care -story care 14. Electrolyte imbalance: -optimize lytes Patient seen and examined in collaboration with Dr. Christian Sinclair. Thank you. Problems: Subjective 24 Hr Interval Summary Awake feels comfortable. Abdominal bloating improved. Had NGT output overnight however, per nursing had a large episodes of diarrhea this morning. Leukocytosis improving. Tachycardic and hypotensive with episodes of hypoglycemia. Comfortable on vent. No fevers, chills, sob, congested cough, nausea, dysuria, excessive wound drainage, abdominal pain. Pressors again this AM. Exam/Review of Systems Vital Signs Vitals Vital Signs Date Time Temp Pulse Resp B/P Pulse Ox O2 Delivery O2 Flow Rate FiO2 02/17/17 11:00 114 29 91/69 97 Mechanical Ventilator Trach Collar 02/17/17 10:00 98.4 02/17/17 05:41 30 Intake and Output 02/16/17 02/16/17 02/17/17 15:00 23:00 07:00 Intake Total 480 ml 380 ml Output Total 1365 ml 1250 ml 875 ml Balance -885 ml -870 ml -875 ml Exam Free Text/Dictation Constitutional: awake, No distress Psych: anxious Head: atraumatic, normocephalic Eyes: nl conjunctiva, nl lids, nl sclera ENMT: mucosa pink and dry, nl external ears & nose, nl lips & teeth; ng tube Neck: non-tender, other (tracheostomy, non-reddened, no drainage noted), supple Respiratory: normal effort, no wheezing, min thin sputum Cardiovascular: nl pulses, regular rate and rhythm Gastrointestinal: non-tender, other (gtube, site non-tender, non-reddened), distention improved; hypoactive bowel sounds Musculoskeletal: nl extremities to inspection Extremities: normal pulses, extremity Edema +2 Neurological: nl mental status, No nl strength (gen weakness) Skin: No rash; wounds (sacral wound pink woundbed min slough with min/mod drainage) Results Result Diagram: 02/17/1742902/17/17429 JERRY SAHU NP Feb 17, 2017 11:20
[2017-02-17] MEDS: HYDROmorphONE 1 MG/ML SYG IV PRN ×2 (14:09→18:52)
--- NOTE | 2017-02-17 14:20 | CONS ---
Date/Time of Note Date/Time of Note DATE: 02/17/17 TIME: 14:13 Assessment/Plan Assessment/Plan Chief Complaint/Hosp Course ID PROGRESS NOTE ABX Day # => Zyvox #9 + Colistin IV #9 + Flagyl #9 s/p IV Bactrim/Cefepime s/p Vanco 24H INTERVAL SUMMARY * No new issues --- afebrile, WBC down today, CXR 02/15 = LL mass unchanged * Nonverbal, lethargic, NGT, Trach-> Vented * MICROBIOLOGY: * Urine (+) Acinetobacter baumannii. * Nares (+)MRSA. * Wound cx: (+)ACBA, MRSA, VRE, PSAR, Stenotrophomonas maltophilia, Proteus mirabilis. PHYSICAL EXAMINATION: GENERAL: Chronically ill-appearing, frail 66 yo F HEENT: Unremarkable except wearing eyeglasses, missing multiple teeth, (+)NGT secure NECK: Trach (+) secure to Vent CHEST: Rise symmetrical without dyspnea ABDOMEN: Soft EXTREMITIES: Moves all extremities, Without cyanosis. SKIN: See photos -- Hip + large decub sacral unstageable ID ASSESSMENT: 66 yo F w/PMHx Dementia, CVA(chronic left thalamic lacunar infarction), Tobacco/ COPD-Emphysema/Lung Cancer re-admit with: 1. s/p Sepsis on admission w/septic + hypovolemic shock, leukocytosis, low grade temps=> Multifactorial * Afebrile current * Hx of Chronic mild tachycardia - albuterol * Leukocytosis => Down today w/hx of chronic elevated WBC 2. Recurrent Complicated UTI, => due to urinary retention with chronic George = > Probable neurogenic bladder * Urine Cx: 02/01 (+)ACBA; 02/02 (+)ACBA 3. 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 Acute on chronic anemia 5. GERD, Dysphagia, hx GIB 6. Chronic respiratory failure w/Tracheostomy = Multifactorial * COPD: Tobaccoism * Aspiration Pneumonitis = 02/02 Sputum (+)PSAR, Stenotrophomonas Maltophilia, Proteus Mirabilis * Hx of PSAR HCAP w/PSAR Trach colonization * Hx of lung cancer w/lobe resection remote 7. 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 H/O DJD spine -> Hx of lumbar spinal fusion 9. Hx of recurrent C.Diff colitis 10. Chronic debility w/Cachexia 11. Chronic pain issues 12. Psych Dx NOS: Hx of Dementia w/intermittent agitative features 13. DECUBS: * Sacral decub: s/p debridement 01/11/17 ; 02/02 Wound cx: (+)ACBA, MRSA, VRE, PSAR, Stenotrophomonas maltophilia, Proteus mirabilis. * Hip Wound Cx 02/01: (+)MM, CRKP, MRSA, VRE (+) MRSA Nares ->Bactroban INVASIVES: PICC (02/10/17), FC, Peg, NGT ALLERGY: PENICILLIN. CURRENT ABX: Zyvox #9 + Colistin IV #9 + Flagyl #9 s/p IV Bactrim/Cefepime s/p Vanco ID PLAN * Poor prognosis for meaningful recovery, CHEM CODE only * Continue current ABX; recurrent acute on chronic sepsis difficult to eradicate ; she is growing multiple ABX resistant organism . Problems: Consultation Date/Type/Reason Admit Date/Time Feb 01, 2017 at 15:50 Initial Consult Date 02/09/17 Type of Consultation: ID Referring Provider: DRE LOBATO MD Exam/Review of Systems Vital Signs Vitals Vital Signs Date Time Temp Pulse Resp B/P Pulse Ox O2 Delivery O2 Flow Rate FiO2 02/17/17 12:00 102 02/17/17 11:20 28 97 30 02/17/17 11:00 91/69 Mechanical Ventilator Trach Collar 02/17/17 10:00 98.4 Intake and Output 02/16/17 02/16/17 02/17/17 15:00 23:00 07:00 Intake Total 480 ml 380 ml Output Total 1365 ml 1250 ml 1025 ml Balance -885 ml -870 ml -1025 ml Results Result Diagram: 02/17/17 0430 02/17/17 0430 Results 24 hrs Laboratory Tests Test 02/16/17 18:11 02/16/17 18:45 02/16/17 19:33 02/16/17 20:02 Bedside Glucose 62 L 98 74 68 L Test 02/16/17 20:25 02/16/17 23:36 02/17/17 01:25 02/17/17 04:30 Bedside Glucose 94 63 L 77 White Blood Count 12.2 #H Red Blood Count 2.96 L Hemoglobin 7.9 L Hematocrit 25.2 L Mean Corpuscular Volume 85.1 Mean Corpuscular Hemoglobin 26.7 L Mean Corpuscular Hemoglobin Concent 31.3 L Red Cell Distribution Width 17.7 H Platelet Count 186 # Mean Platelet Volume 8.5 Neutrophils % 63.4 Lymphocytes % 19.2 Monocytes % 13.2 H Eosinophils % 1.4 Basophils % 0.2 Nucleated Red Blood Cells % 0.0 Neutrophils # (Manual) 7.7 H Lymphocytes # 2.3 Monocytes # 1.6 H Eosinophils # 0.2 Basophils # 0.0 Nucleated Red Blood Cells # 0.0 Sodium Level 142 Potassium Level 3.4 L Chloride Level 109 Carbon Dioxide Level 25 Anion Gap 11 Blood Urea Nitrogen 56 H Creatinine 0.79 Glucose Level 56 #L Calcium Level 12.7 H Phosphorus Level 2.5 Magnesium Level 1.6 L Test 02/17/17 05:24 02/17/17 06:30 02/17/17 12:04 Bedside Glucose 63 L 74 97 Medications Medications Current Medications Ondansetron HCl (Zofran Inj) 4 mg Q6H PRN IV NAUSEA AND/OR VOMITING Last administered on 02/05/17 09:36; Admin Dose 4 MG; Start 02/01/17 at 22:30 Acetaminophen (Tylenol Tab) 650 mg Q6H PRN PO PAIN LEVEL 1-3 OR FEVER Last administered on 02/04/17 21:08; Admin Dose 650 MG; Start 02/01/17 at 22:30 Acetaminophen/ Hydrocodone Bitart ([place] (5/325)) 1 tab Q6H PRN PO MODERATE PAIN LEVEL 4-6 Last administered on 02/04/17 21:07; Admin Dose 1 TAB; Start at 22:30 Hydromorphone HCl (Dilaudid) 0.5 mg Q4H PRN IV SEVERE PAIN LEVEL 7-10 Last administered on 02/17/17 14:09; Admin Dose 0.5 MG; Start 02/01/17 at 22:30 Docusate Sodium (Colace) 100 mg Q12H PRN PO CONSTIPATION; Start 02/01/17 at 22: 30 Magnesium Hydroxide (Milk Of Mag) 30 ml DAILY PRN PO CONSTIPATION; Start at 22:30 Bisacodyl (Dulcolax) 5 mg DAILY PRN PO CONSTIPATION; Start 02/01/17 at 22:30 Zolpidem Tartrate (Ambien) 5 mg QHS PRN PO SLEEP; Start 02/01/17 at 22:30 Lansoprazole (Prevacid) 30 mg DAILY@06 GTB Last administered on 02/15/17 06:29 ; Admin Dose 30 MG; Start 02/02/17 at 06:00 Enoxaparin Sodium (Lovenox) 40 mg DAILY SC Last administered on 02/17/17 09:43 ; Admin Dose 40 MG; Start 02/02/17 at 09:00 Ascorbic Acid (Vitamin C) 500 mg BID GTB Last administered on 02/17/17 09:40; Admin Dose 500 MG; Start 02/02/17 at 09:00 Diazepam (Valium) 5 mg DAILY PRN GTB ANXIETY Last administered on 02/08/17 20: 27; Admin Dose 5 MG; Start 02/01/17 at 22:30 Duloxetine HCl (Cymbalta) 20 mg DAILY GTB Last administered on 02/17/17 09:40; Admin Dose 20 MG; Start 02/02/17 at 09:00 Multivitamins Therapeutic (Theragran) 1 tab DAILY GTB Last administered on 09:40; Admin Dose 1 TAB; Start 02/02/17 at 09:00 Zinc Sulfate (Zinc Sulfate) 220 mg DAILY GTB Last administered on 02/17/17 09: 40; Admin Dose 220 MG; Start 02/02/17 at 09:00 Lactobacillus Acidophilus (Florajen3 Capsule) 1 each TID NGT Last administered on 02/17/17 12:57; Admin Dose 1 EACH; Start 02/02/17 at 09:00 Lactulose (Enulose) 20 gm BID PO Last administered on 02/14/17 21:47; Admin Dose 20 GM; Start 02/02/17 at 09:00 Collagenase (Santyl) 1 applic DAILY TOP Last administered on 02/17/17 09:41; Admin Dose 1 APPLIC; Start 02/02/17 at 09:00 Collagenase 1 applic 1 applic PRN PRN TOP PRN; Start 02/02/17 at 04:00 Linezolid 300 ml @ 300 mls/hr Q12 IVPB Last administered on 02/17/17 09:40; Admin Dose 300 MLS/HR; Start 02/09/17 at 15:00 Metronidazole 100 ml @ 100 mls/hr Q8 IVPB Last administered on 02/17/17 14:09 ; Admin Dose 100 MLS/HR; Start 02/09/17 at 14:00 Colistimethate Sodium/Sodium Chloride (Coly-Mycin/NS) 100 ml @ 200 mls/hr Q12H IVPB Last administered on 02/17/17 05:25; Admin Dose 200 MLS/HR; Start at 04:00 Sodium Hypochlorite (Dakin'S (1/4 Strength)) 1 applic DAILY IRR Last administered on 02/17/17 09:41; Admin Dose 1 APPLIC; Start 02/10/17 at 13:30 IV Flush (NS 10 ml) 10 ml PRN PRN IV FLUSH LINE; Start 02/10/17 at 15:30 Mupirocin (Bactroban) 1 applic BID TOP Last administered on 02/17/17 09:41; Admin Dose 1 APPLIC; Start 02/11/17 at 14:00 Dextrose 25 ml 25 ml IACHS PRN IV DECREASED GLUCOSE Last administered on 05:31; Admin Dose 25 ML; Start 02/13/17 at 08:30 Total Parenteral Nutrition (Tpn) 1,000 ml @ 60 mls/hr [id number] IV Last administered on 02/17/17 03:35; Admin Dose 60 MLS/HR; Start 02/13/17 at 16:00 Dextrose (D50w Syringe) 50 ml IV PRN IV DECREASED GLUCOSE Last administered on 02/13/17 18:07; Admin Dose 50 ML; Start 02/13/17 at 14:30 Fentanyl (Duragesic 25 Mcg/Hr Patch) 1 patch Q72H TRANSDERM Last administered on 02/14/17 17:28; Admin Dose 1 PATCH; Start 02/14/17 at 15:30 Diagnostic Test (Pha) (Accu-Chek) 1 ea Q6 XX Last administered on 02/17/17 12: 05; Admin Dose 1 EA; Start 02/14/17 at 18:00 IV Flush 10 ml 10 ml PRN PRN IV IV PROTOCOL; Start 02/15/17 at 21:30 Dextrose/Sodium Chloride 1,000 ml @ 50 mls/hr Q20H IV Last administered on 02/17 07:04; Admin Dose 50 MLS/HR; Start 02/17/17 at 07:00 Norepinephrine/ Dextrose (Levophed/D5W) 500 ml @ 1.87 mls/hr TITRATE IV Last administered on 02/17/17 11:38; Admin Dose 7.5 MLS/HR; Start 02/17/17 at 11:00 ALMA ROSARIO NP Feb 17, 2017 14:20
[2017-02-17 16:07] LABS: HEMATOCRIT 26.8 % (37.0-47.0); HEMOGLOBIN 8.6 g/dl (12.0-16.0); MEAN CORPUSCULAR HEMOGLOBIN 27.5 pg (29.0-33.0); MEAN CORPUSCULAR HGB CONC 32.1 g/dl (32.0-37.0); MEAN CORPUSCULAR VOLUME 85.6 fl (82.0-101.0); MEAN PLATELET VOLUME 8.2 fl (7.4-10.4); PLATELET COUNT 170 10^3/UL (140-415); RED BLOOD COUNT 3.13 10^6/ul (4.20-5.40); RED CELL DISTRIBUTION WIDTH 17.8 % (11.5-14.5); WHITE BLOOD COUNT 18.6 10^3/ul (4.8-10.8)
[2017-02-17 16:10] LABS: POSITIVE DIFF @See below
[2017-02-17] MEDS ORDERED: MAGNESIUM SULFATE 2 GM/50 ML 50 ML IVPB ONE (16:30)
--- NOTE | 2017-02-17 17:25 | CONS ---
Date/Time of Note Date/Time of Note DATE: 02/17/17 TIME: 16:53 Assessment/Plan Assessment/Plan Additional Assessment/Plan 1. 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 septic shock on levophed 3. Recurrent Multidrug Resistant Urinary tract infection 4. Sacral wound 5. Chronic resp failure 6.S/P Tracheostomy, S/p PEG tube placement 7. Lung CA- Squamous Cell CA 8. Hypercalcemia due to squamous cell CA of lung 9.Hypokalemia-replace K, CMP AM Plan: -Continue current IV abx Colimycin and zyvox , ID following, renally dos abx -Abdomen is slightly less distended, patient continues to be on Levophed drip, ventilatory support via tracheostomy, abdomen is tender, NG-tube to suction for stomach decompression, continue ICU care, continue TPN. -S/p 3 % saline on02/09/17- s/p tolvaptan 15 mg [id number] x 1 dose on 02/13/17- Na improved to 142 today - Ca came down to 12.7, ionised Ca is also high 1.9 - renal function has been normal , will give Pamidronate 30mg IV x 1 dose given on 02/15/17- expecting Ca to improve more -will follow up -Francisco Zapata Consultation Date/Type/Reason Admit Date/Time Feb 01, 2017 at 15:50 Initial Consult Date 02/01/17 Type of Consultation: ID Referring Provider: DRE LOBATO MD Exam/Review of Systems Vital Signs Vitals Vital Signs Date Time Temp Pulse Resp B/P Pulse Ox O2 Delivery O2 Flow Rate FiO2 02/17/17 16:30 123 26 131/87 98 02/17/17 16:00 98.6 Mechanical Ventilator Trach Collar 02/17/17 11:20 30 Intake and Output 02/16/17 02/16/17 02/17/17 15:00 23:00 07:00 Intake Total 480 ml 380 ml 60 ml Output Total 1365 ml 1250 ml 1025 ml Balance -885 ml -870 ml -965 ml Exam Constitutional: alert, frail Respiratory: diminished breath sounds Cardiovascular: nl pulses, other (TACHYCARDIA), regular rate and rhythm Extremities: normal pulses (Sacral decub) Neurological: other (open answers simple Qs) Skin: other Results Result Diagram: 02/17/17 1600 02/17/17 0430 Results 24 hrs Laboratory Tests Test 02/16/17 18:11 02/16/17 18:45 02/16/17 19:33 02/16/17 20:02 Bedside Glucose 62 L 98 74 68 L Test 02/16/17 20:25 02/16/17 23:36 02/17/17 01:25 02/17/17 04:30 Bedside Glucose 94 63 L 77 White Blood Count 12.2 #H Red Blood Count 2.96 L Hemoglobin 7.9 L Hematocrit 25.2 L Mean Corpuscular Volume 85.1 Mean Corpuscular Hemoglobin 26.7 L Mean Corpuscular Hemoglobin Concent 31.3 L Red Cell Distribution Width 17.7 H Platelet Count 186 # Mean Platelet Volume 8.5 Neutrophils % 63.4 Lymphocytes % 19.2 Monocytes % 13.2 H Eosinophils % 1.4 Basophils % 0.2 Nucleated Red Blood Cells % 0.0 Neutrophils # (Manual) 7.7 H Lymphocytes # 2.3 Monocytes # 1.6 H Eosinophils # 0.2 Basophils # 0.0 Nucleated Red Blood Cells # 0.0 Sodium Level 142 Potassium Level 3.4 L Chloride Level 109 Carbon Dioxide Level 25 Anion Gap 11 Blood Urea Nitrogen 56 H Creatinine 0.79 Glucose Level 56 #L Calcium Level 12.7 H Phosphorus Level 2.5 Magnesium Level 1.6 L Test 02/17/17 05:24 02/17/17 06:30 02/17/17 12:04 02/17/17 16:00 Bedside Glucose 63 L 74 97 White Blood Count 18.6 #H Red Blood Count 3.13 L Hemoglobin 8.6 L Hematocrit 26.8 L Mean Corpuscular Volume 85.6 Mean Corpuscular Hemoglobin 27.5 L Mean Corpuscular Hemoglobin Concent 32.1 Red Cell Distribution Width 17.8 H Platelet Count 170 Mean Platelet Volume 8.2 Neutrophils % Lymphocytes % Monocytes % Eosinophils % Basophils % Nucleated Red Blood Cells % 0.0 Neutrophils # (Manual) 16.0 H Lymphocytes # Monocytes # Eosinophils # Basophils # Nucleated Red Blood Cells # Medications Medications Current Medications Ondansetron HCl (Zofran Inj) 4 mg Q6H PRN IV NAUSEA AND/OR VOMITING Last administered on 02/05/17 09:36; Admin Dose 4 MG; Start 02/01/17 at 22:30 Acetaminophen (Tylenol Tab) 650 mg Q6H PRN PO PAIN LEVEL 1-3 OR FEVER Last administered on 02/04/17 21:08; Admin Dose 650 MG; Start 02/01/17 at 22:30 Acetaminophen/ Hydrocodone Bitart ([place] (5/325)) 1 tab Q6H PRN PO MODERATE PAIN LEVEL 4-6 Last administered on 02/04/17 21:07; Admin Dose 1 TAB; Start at 22:30 Hydromorphone HCl (Dilaudid) 0.5 mg Q4H PRN IV SEVERE PAIN LEVEL 7-10 Last administered on 02/17/17 14:09; Admin Dose 0.5 MG; Start 02/01/17 at 22:30 Docusate Sodium (Colace) 100 mg Q12H PRN PO CONSTIPATION; Start 02/01/17 at 22: 30 Magnesium Hydroxide (Milk Of Mag) 30 ml DAILY PRN PO CONSTIPATION; Start at 22:30 Bisacodyl (Dulcolax) 5 mg DAILY PRN PO CONSTIPATION; Start 02/01/17 at 22:30 Zolpidem Tartrate (Ambien) 5 mg QHS PRN PO SLEEP; Start 02/01/17 at 22:30 Lansoprazole (Prevacid) 30 mg DAILY@06 GTB Last administered on 02/15/17 06:29 ; Admin Dose 30 MG; Start 02/02/17 at 06:00 Enoxaparin Sodium (Lovenox) 40 mg DAILY SC Last administered on 02/17/17 09:43 ; Admin Dose 40 MG; Start 02/02/17 at 09:00 Ascorbic Acid (Vitamin C) 500 mg BID GTB Last administered on 02/17/17 09:40; Admin Dose 500 MG; Start 02/02/17 at 09:00 Diazepam (Valium) 5 mg DAILY PRN GTB ANXIETY Last administered on 02/08/17 20: 27; Admin Dose 5 MG; Start 02/01/17 at 22:30 Duloxetine HCl (Cymbalta) 20 mg DAILY GTB Last administered on 02/17/17 09:40; Admin Dose 20 MG; Start 02/02/17 at 09:00 Multivitamins Therapeutic (Theragran) 1 tab DAILY GTB Last administered on 09:40; Admin Dose 1 TAB; Start 02/02/17 at 09:00 Zinc Sulfate (Zinc Sulfate) 220 mg DAILY GTB Last administered on 02/17/17 09: 40; Admin Dose 220 MG; Start 02/02/17 at 09:00 Lactobacillus Acidophilus (Florajen3 Capsule) 1 each TID NGT Last administered on 02/17/17 12:57; Admin Dose 1 EACH; Start 02/02/17 at 09:00 Lactulose (Enulose) 20 gm BID PO Last administered on 02/14/17 21:47; Admin Dose 20 GM; Start 02/02/17 at 09:00 Collagenase (Santyl) 1 applic DAILY TOP Last administered on 02/17/17 09:41; Admin Dose 1 APPLIC; Start 02/02/17 at 09:00 Collagenase 1 applic 1 applic PRN PRN TOP PRN; Start 02/02/17 at 04:00 Linezolid 300 ml @ 300 mls/hr Q12 IVPB Last administered on 02/17/17 09:40; Admin Dose 300 MLS/HR; Start 02/09/17 at 15:00 Metronidazole 100 ml @ 100 mls/hr Q8 IVPB Last administered on 02/17/17 14:09 ; Admin Dose 100 MLS/HR; Start 02/09/17 at 14:00 Colistimethate Sodium/Sodium Chloride (Coly-Mycin/NS) 100 ml @ 200 mls/hr Q12H IVPB Last administered on 02/17/17 15:55; Admin Dose 200 MLS/HR; Start at 04:00 Sodium Hypochlorite (Dakin'S (1/4 Strength)) 1 applic DAILY IRR Last administered on 02/17/17 09:41; Admin Dose 1 APPLIC; Start 02/10/17 at 13:30 IV Flush (NS 10 ml) 10 ml PRN PRN IV FLUSH LINE; Start 02/10/17 at 15:30 Mupirocin (Bactroban) 1 applic BID TOP Last administered on 02/17/17 09:41; Admin Dose 1 APPLIC; Start 02/11/17 at 14:00 Dextrose 25 ml 25 ml IACHS PRN IV DECREASED GLUCOSE Last administered on 05:31; Admin Dose 25 ML; Start 02/13/17 at 08:30 Total Parenteral Nutrition (Tpn) 1,000 ml @ 60 mls/hr [id number] IV Last administered on 02/17/17 03:35; Admin Dose 60 MLS/HR; Start 02/13/17 at 16:00 Dextrose (D50w Syringe) 50 ml IV PRN IV DECREASED GLUCOSE Last administered on 02/13/17 18:07; Admin Dose 50 ML; Start 02/13/17 at 14:30 Fentanyl (Duragesic 25 Mcg/Hr Patch) 1 patch Q72H TRANSDERM Last administered on 02/17/17 16:06; Admin Dose 1 PATCH; Start 02/14/17 at 15:30 Diagnostic Test (Pha) (Accu-Chek) 1 ea Q6 XX Last administered on 02/17/17 12: 05; Admin Dose 1 EA; Start 02/14/17 at 18:00 IV Flush 10 ml 10 ml PRN PRN IV IV PROTOCOL; Start 02/15/17 at 21:30 Dextrose/Sodium Chloride 1,000 ml @ 50 mls/hr Q20H IV Last administered on 02/17 07:04; Admin Dose 50 MLS/HR; Start 02/17/17 at 07:00 Norepinephrine 16 mg/Dextrose 500 ml @ 1.87 mls/hr TITRATE IV Last administered on 02/17/17 11:38; Admin Dose 7.5 MLS/HR; Start 02/17/17 at 11:00 Magnesium Sulfate (Magnesium Sulfate 2 Gm/50 ml) 50 ml @ 25 mls/hr ONCE ONCE IVPB ; Start 02/17/17 at 16:30; Stop 02/17/17 at 18:29 VIKASH CASTANEDA Feb 17, 2017 17:03
[2017-02-17 17:49] LABS: LYMPHOCYTES # 1.5 10^3/ul (0.8-2.9); MONOCYTE # 0.4 10^3/ul (0.3-0.9); MONOCYTES % (M) 2 % (0-11)
--- NOTE | 2017-02-17 18:53 | CONS ---
Date/Time of Note Date/Time of Note DATE: 02/17/17 TIME: 18:52 Assessment/Plan Assessment/Plan Chief Complaint/Hosp Course -Anemia, POST PRBC transfuse packed red blood cells as needed continue to monitor H&H. COMPLEX, MULTIFACTORIAL -Left lung squamous carcinoma, NOW WITH POS LIVER METS supportive care no aggressive treatment planned HYPERCALCEMIA POST AREDIA - SBO NOW ON CONSERVATIVE MANAGEMENT -Sepsis, most likely secondary to urinary tract infection and possible postobstructive pneumonia. Dr. Coleman is following infection disease consultation, follow-up on cultures, continue antibiotics per ID. -Hyponatremia, nephrology f-up, continue IV fluids per renal. -Ventilator dependent respiratory failure with tracheostomy, continue breathing treatments. -COPD -Dysphagia with PEG -History of cardiopulmonary arrest -Multiple wounds present on admission, that is post debridement at last admission. -Hypothyroidism -Chronic urinary retention with George catheter PROGNOSIS- POOR Problems: Consultation Date/Type/Reason Admit Date/Time Feb 01, 2017 at 15:50 Initial Consult Date 02/08/17 Type of Consultation: hemeon Referring Provider: DRE LOBATO MD 24 HR Interval Summary Free Text/Dictation ALL NOTED NO BLEEDING Exam/Review of Systems Vital Signs Vitals Vital Signs Date Time Temp Pulse Resp B/P Pulse Ox O2 Delivery O2 Flow Rate FiO2 02/17/17 17:05 126 29 98 30 02/17/17 16:30 131/87 02/17/17 16:00 98.6 Mechanical Ventilator Trach Collar Intake and Output 02/16/17 02/16/17 02/17/17 15:00 23:00 07:00 Intake Total 480 ml 380 ml 60 ml Output Total 1365 ml 1250 ml 1025 ml Balance -885 ml -870 ml -965 ml Exam Constitutional: awake, No distress Psych: anxious Head: atraumatic, normocephalic Eyes: nl conjunctiva, nl lids, nl sclera ENMT: mucosa pink and dry, nl external ears & nose, nl lips & teeth; ng tube Neck: non-tender, other (tracheostomy, non-reddened, no drainage noted), supple Respiratory: normal effort, no wheezing, min thin sputum Cardiovascular: nl pulses, regular rate and rhythm Gastrointestinal: non-tender, other (gtube, site non-tender, non-reddened), distention improved; hypoactive bowel sounds Musculoskeletal: nl extremities to inspection Extremities: normal pulses, extremity Edema +2 Neurological: nl mental status, No nl strength (gen weakness) Skin: No rash; wounds (sacral wound pink woundbed min slough with min/mod drainage) Results Result Diagram: 02/17/17 1600 02/17/17 0430 Results 24 hrs Laboratory Tests Test 02/16/17 19:33 02/16/17 20:02 02/16/17 20:25 02/16/17 23:36 Bedside Glucose 74 68 L 94 63 L Test 02/17/17 01:25 02/17/17 04:30 02/17/17 05:24 02/17/17 06:30 Bedside Glucose 77 63 L 74 White Blood Count 12.2 #H Red Blood Count 2.96 L Hemoglobin 7.9 L Hematocrit 25.2 L Mean Corpuscular Volume 85.1 Mean Corpuscular Hemoglobin 26.7 L Mean Corpuscular Hemoglobin Concent 31.3 L Red Cell Distribution Width 17.7 H Platelet Count 186 # Mean Platelet Volume 8.5 Neutrophils % 63.4 Lymphocytes % 19.2 Monocytes % 13.2 H Eosinophils % 1.4 Basophils % 0.2 Nucleated Red Blood Cells % 0.0 Neutrophils # (Manual) 7.7 H Lymphocytes # 2.3 Monocytes # 1.6 H Eosinophils # 0.2 Basophils # 0.0 Nucleated Red Blood Cells # 0.0 Sodium Level 142 Potassium Level 3.4 L Chloride Level 109 Carbon Dioxide Level 25 Anion Gap 11 Blood Urea Nitrogen 56 H Creatinine 0.79 Glucose Level 56 #L Calcium Level 12.7 H Phosphorus Level 2.5 Magnesium Level 1.6 L Test 02/17/17 12:04 02/17/17 16:00 Bedside Glucose 97 White Blood Count 18.6 #H Red Blood Count 3.13 L Hemoglobin 8.6 L Hematocrit 26.8 L Mean Corpuscular Volume 85.6 Mean Corpuscular Hemoglobin 27.5 L Mean Corpuscular Hemoglobin Concent 32.1 Red Cell Distribution Width 17.8 H Platelet Count 170 Mean Platelet Volume 8.2 Neutrophils % Segmented Neutrophils % (Manual) 80 H Band Neutrophils % (Manual) 10 H Lymphocytes % Lymphocytes % (Manual) 8 L Monocytes % Monocytes % (Manual) 2 Eosinophils % Basophils % Nucleated Red Blood Cells % 0.0 Neutrophils # (Manual) 15.2 H Band Neutrophils # 1.8 H Absolute Lymphocytes (Manual) 1.4 Lymphocytes # 1.5 Monocytes # 0.4 Absolute Monocytes (Manual) 0.3 Eosinophils # Basophils # Nucleated Red Blood Cells # Medications Medications Current Medications Ondansetron HCl (Zofran Inj) 4 mg Q6H PRN IV NAUSEA AND/OR VOMITING Last administered on 02/05/17 09:36; Admin Dose 4 MG; Start 02/01/17 at 22:30 Acetaminophen (Tylenol Tab) 650 mg Q6H PRN PO PAIN LEVEL 1-3 OR FEVER Last administered on 02/04/17 21:08; Admin Dose 650 MG; Start 02/01/17 at 22:30 Acetaminophen/ Hydrocodone Bitart ([place] (5/325)) 1 tab Q6H PRN PO MODERATE PAIN LEVEL 4-6 Last administered on 02/04/17 21:07; Admin Dose 1 TAB; Start at 22:30 Hydromorphone HCl (Dilaudid) 0.5 mg Q4H PRN IV SEVERE PAIN LEVEL 7-10 Last administered on 02/17/17 18:52; Admin Dose 0.5 MG; Start 02/01/17 at 22:30 Docusate Sodium (Colace) 100 mg Q12H PRN PO CONSTIPATION; Start 02/01/17 at 22: 30 Magnesium Hydroxide (Milk Of Mag) 30 ml DAILY PRN PO CONSTIPATION; Start at 22:30 Bisacodyl (Dulcolax) 5 mg DAILY PRN PO CONSTIPATION; Start 02/01/17 at 22:30 Zolpidem Tartrate (Ambien) 5 mg QHS PRN PO SLEEP; Start 02/01/17 at 22:30 Lansoprazole (Prevacid) 30 mg DAILY@06 GTB Last administered on 02/15/17 06:29 ; Admin Dose 30 MG; Start 02/02/17 at 06:00 Enoxaparin Sodium (Lovenox) 40 mg DAILY SC Last administered on 02/17/17 09:43 ; Admin Dose 40 MG; Start 02/02/17 at 09:00 Ascorbic Acid (Vitamin C) 500 mg BID GTB Last administered on 02/17/17 09:40; Admin Dose 500 MG; Start 02/02/17 at 09:00 Diazepam (Valium) 5 mg DAILY PRN GTB ANXIETY Last administered on 02/08/17 20: 27; Admin Dose 5 MG; Start 02/01/17 at 22:30 Duloxetine HCl (Cymbalta) 20 mg DAILY GTB Last administered on 02/17/17 09:40; Admin Dose 20 MG; Start 02/02/17 at 09:00 Multivitamins Therapeutic (Theragran) 1 tab DAILY GTB Last administered on 09:40; Admin Dose 1 TAB; Start 02/02/17 at 09:00 Zinc Sulfate (Zinc Sulfate) 220 mg DAILY GTB Last administered on 02/17/17 09: 40; Admin Dose 220 MG; Start 02/02/17 at 09:00 Lactobacillus Acidophilus (Florajen3 Capsule) 1 each TID NGT Last administered on 02/17/17 12:57; Admin Dose 1 EACH; Start 02/02/17 at 09:00 Lactulose (Enulose) 20 gm BID PO Last administered on 02/14/17 21:47; Admin Dose 20 GM; Start 02/02/17 at 09:00 Collagenase (Santyl) 1 applic DAILY TOP Last administered on 02/17/17 09:41; Admin Dose 1 APPLIC; Start 02/02/17 at 09:00 Collagenase 1 applic 1 applic PRN PRN TOP PRN; Start 02/02/17 at 04:00 Linezolid 300 ml @ 300 mls/hr Q12 IVPB Last administered on 02/17/17 09:40; Admin Dose 300 MLS/HR; Start 02/09/17 at 15:00 Metronidazole 100 ml @ 100 mls/hr Q8 IVPB Last administered on 02/17/17 14:09 ; Admin Dose 100 MLS/HR; Start 02/09/17 at 14:00 Colistimethate Sodium/Sodium Chloride (Coly-Mycin/NS) 100 ml @ 200 mls/hr Q12H IVPB Last administered on 02/17/17 15:55; Admin Dose 200 MLS/HR; Start at 04:00 Sodium Hypochlorite (Dakin'S (1/4 Strength)) 1 applic DAILY IRR Last administered on 02/17/17 09:41; Admin Dose 1 APPLIC; Start 02/10/17 at 13:30 IV Flush (NS 10 ml) 10 ml PRN PRN IV FLUSH LINE; Start 02/10/17 at 15:30 Mupirocin (Bactroban) 1 applic BID TOP Last administered on 02/17/17 09:41; Admin Dose 1 APPLIC; Start 02/11/17 at 14:00 Dextrose 25 ml 25 ml IACHS PRN IV DECREASED GLUCOSE Last administered on 05:31; Admin Dose 25 ML; Start 02/13/17 at 08:30 Total Parenteral Nutrition (Tpn) 1,000 ml @ 60 mls/hr [id number] IV Last administered on 02/17/17 16:57; Admin Dose 60 MLS/HR; Start 02/13/17 at 16:00 Dextrose (D50w Syringe) 50 ml IV PRN IV DECREASED GLUCOSE Last administered on 02/13/17 18:07; Admin Dose 50 ML; Start 02/13/17 at 14:30 Fentanyl (Duragesic 25 Mcg/Hr Patch) 1 patch Q72H TRANSDERM Last administered on 02/17/17 16:06; Admin Dose 1 PATCH; Start 02/14/17 at 15:30 Diagnostic Test (Pha) (Accu-Chek) 1 ea Q6 XX Last administered on 02/17/17 12: 05; Admin Dose 1 EA; Start 02/14/17 at 18:00 IV Flush 10 ml 10 ml PRN PRN IV IV PROTOCOL; Start 02/15/17 at 21:30 Dextrose/Sodium Chloride 1,000 ml @ 50 mls/hr Q20H IV Last administered on 02/17 07:04; Admin Dose 50 MLS/HR; Start 02/17/17 at 07:00 Norepinephrine/ Dextrose (Levophed/D5W) 500 ml @ 1.87 mls/hr TITRATE IV Last administered on 02/17/17 11:38; Admin Dose 7.5 MLS/HR; Start 02/17/17 at 11:00 DYLLAN CARRION MD Feb 17, 2017 18:53
[2017-02-17] MEDS: ACETAMINOPHEN 325 MG TAB PO PRN (21:21)
[2017-02-18] VITALS (32 sets, daily range): BP systolic 117–143; BP diastolic 84–99; PULSE 112–124; RESP 14–29
[2017-02-18] MEDS: ACCU-CHEK XX SCH ×4 (00:50→17:25)
[2017-02-18] MEDS: IPRATROPIUM (HFA) 12.9 GM INHALER INH SCH ×4 (01:54→19:51)
[2017-02-18] MEDS: ALBUTEROL 18 GM INHALER INH SCH ×4 (01:54→19:52)
[2017-02-18] MEDS: DEXTROSE 5%-0.9% NACL 1,000 ML IV SCH ×2 (03:18→23:53)
[2017-02-18] MEDS: HYDROmorphONE 1 MG/ML SYG IV PRN ×2 (03:40→11:28)
[2017-02-18] MEDS: COLISTIMETHATE 100 MG in SOD CHLORIDE 0.9% 100 ML IVPB SCH ×2 (04:44→18:00)
[2017-02-18 05:33] LABS: ABNORMAL IP MESSAGE 1; BASOPHILS % 0.1 % (0.0-2.0); HEMATOCRIT 25.6 % (37.0-47.0); HEMOGLOBIN 7.9 g/dl (12.0-16.0); LYMPHOCYTES # 2.4 10^3/ul (0.8-2.9); MEAN CORPUSCULAR HEMOGLOBIN 26.5 pg (29.0-33.0); MEAN CORPUSCULAR HGB CONC 30.9 g/dl (32.0-37.0); MEAN CORPUSCULAR VOLUME 85.9 fl (82.0-101.0); MEAN PLATELET VOLUME 8.9 fl (7.4-10.4); MONOCYTE # 2.1 10^3/ul (0.3-0.9); MONOCYTES % 9.1 % (0.0-11.0); NUCLEATED RED BLOOD CELLS% 0.1 /100WBC (0.0-0.0); PLATELET COUNT 143 10^3/UL (140-415); RED BLOOD COUNT 2.98 10^6/ul (4.20-5.40); RED CELL DISTRIBUTION WIDTH 18.2 % (11.5-14.5); WHITE BLOOD COUNT 23.4 10^3/ul (4.8-10.8)
[2017-02-18] MEDS: metroNIDAZOLE 500 MG/NS (PMX) 100 ML IVPB SCH ×3 (05:48→21:04)
[2017-02-18] MEDS: LANSOPRAZOLE 30 MG CAP GTB SCH (05:48)
[2017-02-18 05:52] LABS: POSITIVE DIFF @See below
[2017-02-18 05:54] LABS: ALBUMIN 2.5 g/dl (3.3-4.9); ALBUMIN/GLOBULIN RATIO 0.55; CALCIUM 12.3 mg/dl (8.4-10.2); CREATININE 0.75 mg/dl (0.44-1.00); POTASSIUM 4.4 mmol/L (3.5-5.1)
[2017-02-18] MEDS: LINEZOLID 600 MG/D5W (PMX) 300 ML IVPB SCH ×2 (08:45→20:55)
[2017-02-18] MEDS: ASCORBIC ACID 500 MG TAB GTB SCH ×2 (08:45→20:54)
[2017-02-18] MEDS: LACTULOSE 30ML CUP PO SCH ×2 (08:45→20:54)
[2017-02-18] MEDS: ZINC SULFATE 220 MG CAP GTB SCH (08:45)
[2017-02-18] MEDS: DULOXETINE 20 MG CAP DR GTB SCH (08:45)
[2017-02-18] MEDS: MULTIVITAMINS THERAPEUTIC TAB GTB SCH (08:45)
[2017-02-18] MEDS: MUPIROCIN 2% 22 GM OINT TOP SCH ×2 (08:47→20:54)
[2017-02-18] MEDS: ENOXAPARIN 40 MG/0.4 ML SYG SC SCH (08:48)
[2017-02-18] MEDS: COLLAGENASE 30 GM TUBE TOP SCH (09:00)
[2017-02-18] MEDS: SODIUM HYPOCHLORITE 0.125% 473 ML BTL IRR SCH (09:00)
--- NOTE | 2017-02-18 10:38 | PN ---
Date/Time of Note Date/Time of Note DATE: 02/18/17 TIME: 10:38 Assessment/Plan VTE Prophylaxis VTE Prophylaxis Intervention: other Lines/Catheters [facility] PICC Line Central line still needed: Yes Urinary Cath still in place: Yes Reason Cath still needed: skin wounds contaminated by urine Assessment/Plan Chief Complaint/Hosp Course -Small bowel obstruction. Continue G-tube to low wall suctioning. Dr Gonzales is following in gastroenterology consultation. - sp CT Abdomen- result pending. fu -Sepsis, most likely secondary to urinary tract infection and possible postobstructive pneumonia. Dr. Coleman is following infection disease consultation, continue antibiotics per ID. -Hyponatremia, Dr. Zapata is following a nephrology consultation, continue IV fluids per renal. 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 -Ventilator dependent respiratory failure with tracheostomy, continue breathing treatments. 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 -Chronic urinary retention with George catheter -Chemical CODE STATUS Problems: Subjective 24 Hr Interval Summary Free Text/Dictation Eyes open, trach in place, on vasopressors, TPN. Exam/Review of Systems Vital Signs Vitals Vital Signs Date Time Temp Pulse Resp B/P Pulse Ox O2 Delivery O2 Flow Rate FiO2 02/18/17 09:49 116 25 99 30 02/18/17 09:00 132/96 Mechanical Ventilator 02/18/17 08:00 98.0 Intake and Output 02/17/17 02/17/17 02/18/17 15:00 23:00 07:00 Intake Total 1500.5 ml 1640 ml 1065 ml Output Total 1450 ml 2000 ml 700 ml Balance 50.5 ml -360 ml 365 ml Exam Constitutional: frail Head: atraumatic, normocephalic Neck: supple Respiratory: diminished breath sounds Cardiovascular: regular rate and rhythm Gastrointestinal: non-tender, soft Extremities: normal pulses Results Result Diagram: 02/18/17 0445 02/18/17 0445 Results 24 hrs Laboratory Tests Test 02/17/17 12:04 02/17/17 16:00 02/17/17 18:54 02/18/17 00:49 Bedside Glucose 97 119 153 White Blood Count 18.6 #H Red Blood Count 3.13 L Hemoglobin 8.6 L Hematocrit 26.8 L Mean Corpuscular Volume 85.6 Mean Corpuscular Hemoglobin 27.5 L Mean Corpuscular Hemoglobin Concent 32.1 Red Cell Distribution Width 17.8 H Platelet Count 170 Mean Platelet Volume 8.2 Neutrophils % Segmented Neutrophils % (Manual) 80 H Band Neutrophils % (Manual) 10 H Lymphocytes % Lymphocytes % (Manual) 8 L Monocytes % Monocytes % (Manual) 2 Eosinophils % Basophils % Nucleated Red Blood Cells % 0.0 Neutrophils # (Manual) 15.2 H Band Neutrophils # 1.8 H Absolute Lymphocytes (Manual) 1.4 Lymphocytes # 1.5 Monocytes # 0.4 Absolute Monocytes (Manual) 0.3 Eosinophils # Basophils # Nucleated Red Blood Cells # Test 02/18/17 04:45 02/18/17 05:53 White Blood Count 23.4 #H Red Blood Count 2.98 L Hemoglobin 7.9 L Hematocrit 25.6 L Mean Corpuscular Volume 85.9 Mean Corpuscular Hemoglobin 26.5 L Mean Corpuscular Hemoglobin Concent 30.9 L Red Cell Distribution Width 18.2 H Platelet Count 143 Mean Platelet Volume 8.9 Neutrophils % 78.0 H Lymphocytes % 10.0 L Monocytes % 9.1 Eosinophils % 0.0 Basophils % 0.1 Nucleated Red Blood Cells % 0.1 H Neutrophils # (Manual) 18.2 H Lymphocytes # 2.4 Monocytes # 2.1 H Eosinophils # 0.0 Basophils # 0.0 Nucleated Red Blood Cells # 0.0 Sodium Level 145 H Potassium Level 4.4 Chloride Level 110 Carbon Dioxide Level 26 Anion Gap 13 Blood Urea Nitrogen 54 H Creatinine 0.75 Glucose Level 130 # Calcium Level 12.3 H Magnesium Level 2.0 Total Bilirubin 0.0 L Direct Bilirubin 0.00 Indirect Bilirubin 0.0 Aspartate Amino Transf (AST/SGOT) 20 Alanine Aminotransferase (ALT/SGPT) 21 Alkaline Phosphatase 431 H Total Protein 7.0 Albumin 2.5 L Globulin 4.50 H Albumin/Globulin Ratio 0.55 Bedside Glucose 118 Medications Medications Current Medications Ondansetron HCl (Zofran Inj) 4 mg Q6H PRN IV NAUSEA AND/OR VOMITING Last administered on 02/05/17t 09:36; Admin Dose 4 MG; Start 02/01/17 at 22:30 Acetaminophen (Tylenol Tab) 650 mg Q6H PRN PO PAIN LEVEL 1-3 OR FEVER Last administered on 02/17/17 21:21; Admin Dose 650 MG; Start 02/01/17 at 22:30 Acetaminophen/ Hydrocodone Bitart ([place] (5/325)) 1 tab Q6H PRN PO MODERATE PAIN LEVEL 4-6 Last administered on 02/04/17 21:07; Admin Dose 1 TAB; Start at 22:30 Hydromorphone HCl (Dilaudid) 0.5 mg Q4H PRN IV SEVERE PAIN LEVEL 7-10 Last administered on 02/18/17 03:40; Admin Dose 0.5 MG; Start 02/01/17 at 22:30 Docusate Sodium (Colace) 100 mg Q12H PRN PO CONSTIPATION; Start 02/01/17 at 22: 30 Magnesium Hydroxide (Milk Of Mag) 30 ml DAILY PRN PO CONSTIPATION; Start at 22:30 Bisacodyl (Dulcolax) 5 mg DAILY PRN PO CONSTIPATION; Start 02/01/17 at 22:30 Zolpidem Tartrate (Ambien) 5 mg QHS PRN PO SLEEP; Start 02/01/17 at 22:30 Lansoprazole (Prevacid) 30 mg DAILY@06 GTB Last administered on 02/18/17 05:48 ; Admin Dose 30 MG; Start 02/02/17 at 06:00 Enoxaparin Sodium (Lovenox) 40 mg DAILY SC Last administered on 02/18/17 08:48 ; Admin Dose 40 MG; Start 02/02/17 at 09:00 Ascorbic Acid (Vitamin C) 500 mg BID GTB Last administered on 02/18/17 08:45; Admin Dose 500 MG; Start 02/02/17 at 09:00 Diazepam (Valium) 5 mg DAILY PRN GTB ANXIETY Last administered on 02/08/17 20: 27; Admin Dose 5 MG; Start 02/01/17 at 22:30 Duloxetine HCl (Cymbalta) 20 mg DAILY GTB Last administered on 02/18/17 08:45; Admin Dose 20 MG; Start 02/02/17 at 09:00 Multivitamins Therapeutic (Theragran) 1 tab DAILY GTB Last administered on 08:45; Admin Dose 1 TAB; Start 02/02/17 at 09:00 Zinc Sulfate (Zinc Sulfate) 220 mg DAILY GTB Last administered on 02/18/17 08: 45; Admin Dose 220 MG; Start 02/02/17 at 09:00 Lactobacillus Acidophilus (Florajen3 Capsule) 1 each TID NGT Last administered on 02/17/17 21:21; Admin Dose 1 EACH; Start 02/02/17 at 09:00 Lactulose (Enulose) 20 gm BID PO Last administered on 02/18/17 08:45; Admin Dose 20 GM; Start 02/02/17 at 09:00 Collagenase (Santyl) 1 applic DAILY TOP Last administered on 02/17/17 09:41; Admin Dose 1 APPLIC; Start 02/02/17 at 09:00 Collagenase 1 applic 1 applic PRN PRN TOP PRN; Start 02/02/17 at 04:00 Linezolid 300 ml @ 300 mls/hr Q12 IVPB Last administered on 02/18/17 08:45; Admin Dose 300 MLS/HR; Start 02/09/17 at 15:00 Metronidazole 100 ml @ 100 mls/hr Q8 IVPB Last administered on 02/18/17 05:48 ; Admin Dose 100 MLS/HR; Start 02/09/17 at 14:00 Colistimethate Sodium/Sodium Chloride (Coly-Mycin/NS) 100 ml @ 200 mls/hr Q12H IVPB Last administered on 02/18/17 04:44; Admin Dose 200 MLS/HR; Start at 04:00 Sodium Hypochlorite (Dakin'S (1/4 Strength)) 1 applic DAILY IRR Last administered on 02/17/17 09:41; Admin Dose 1 APPLIC; Start 02/10/17 at 13:30 IV Flush (NS 10 ml) 10 ml PRN PRN IV FLUSH LINE; Start 02/10/17 at 15:30 Mupirocin (Bactroban) 1 applic BID TOP Last administered on 02/18/17 08:47; Admin Dose 1 APPLIC; Start 02/11/17 at 14:00 Dextrose 25 ml 25 ml IACHS PRN IV DECREASED GLUCOSE Last administered on 05:31; Admin Dose 25 ML; Start 02/13/17 at 08:30 Total Parenteral Nutrition (Tpn) 1,000 ml @ 60 mls/hr [id number] IV Last administered on 02/17/17 16:57; Admin Dose 60 MLS/HR; Start 02/13/17 at 16:00 Dextrose (D50w Syringe) 50 ml IV PRN IV DECREASED GLUCOSE Last administered on 02/13/17 18:07; Admin Dose 50 ML; Start 02/13/17 at 14:30 Fentanyl (Duragesic 25 Mcg/Hr Patch) 1 patch Q72H TRANSDERM Last administered on 02/17/17 16:06; Admin Dose 1 PATCH; Start 02/14/17 at 15:30 Diagnostic Test (Pha) (Accu-Chek) 1 ea Q6 XX Last administered on 02/18/17 05: 54; Admin Dose 1 EA; Start 02/14/17 at 18:00 IV Flush 10 ml 10 ml PRN PRN IV IV PROTOCOL; Start 02/15/17 at 21:30 Dextrose/Sodium Chloride 1,000 ml @ 50 mls/hr Q20H IV Last administered on 02/18 03:18; Admin Dose 50 MLS/HR; Start 02/17/17 at 07:00 Norepinephrine/ Dextrose (Levophed/D5W) 500 ml @ 1.87 mls/hr TITRATE IV Last administered on 02/17/17 11:38; Admin Dose 7.5 MLS/HR; Start 02/17/17 at 11:00 MICHAEL HOROWITZ Feb 18, 2017 10:38
[2017-02-18] MEDS: L ACIDOPHIL/B LACTIS/B LONGUM CAPSULE NGT SCH ×3 (11:11→20:54)
[2017-02-18] MEDS: TPN 1,000 ML IV SCH (11:11)
--- NOTE | 2017-02-18 12:54 | CONS ---
Date/Time of Note Date/Time of Note DATE: 02/18/17 TIME: 12:53 Consult Date/Type/Reason Admit Date/Time Feb 01, 2017 at 15:50 Initial Consult Date 02/01/17 Type of Consultation: Pulmonary Ordering Provider: DRE LOBATO MD Subjective Stable off vasopressors. Neurologically unchanged. Objective Vital Signs Date Time Temp Pulse Resp B/P Pulse Ox O2 Delivery O2 Flow Rate FiO2 02/18/17 12:30 120 24 129/99 98 Mechanical Ventilator 02/18/17 12:00 98.0 02/18/17 11:50 30 Intake and Output 02/17/17 02/17/17 02/18/17 15:00 23:00 07:00 Intake Total 1500.5 ml 1640 ml 1065 ml Output Total 1450 ml 2000 ml 900 ml Balance 50.5 ml -360 ml 165 ml Exam PHYSICAL EXAMINATION GENERAL: Elderly lady on mechanical ventilation via tracheostomy VITAL SIGNS: see below. HEENT: Pupils equal, round, and reactive to light. CARDIAC: S1, S2, 1/6 systolic ejection murmur CHEST: Diminished air entry bilaterally. ABDOMEN: Mildly distended. Bowel sounds present no guarding or rebound EXTREMITIES: No cyanosis, clubbing edema +1 NEUROLOGIC: Generalized weakness Results/Medications Result Diagram: 02/18/17 0445 02/18/17 0445 Results 24 hrs Laboratory Tests Test 02/17/17 16:00 02/17/17 18:54 02/18/17 00:49 02/18/17 04:45 White Blood Count 18.6 #H 23.4 #H Red Blood Count 3.13 L 2.98 L Hemoglobin 8.6 L 7.9 L Hematocrit 26.8 L 25.6 L Mean Corpuscular Volume 85.6 85.9 Mean Corpuscular Hemoglobin 27.5 L 26.5 L Mean Corpuscular Hemoglobin Concent 32.1 30.9 L Red Cell Distribution Width 17.8 H 18.2 H Platelet Count 170 143 Mean Platelet Volume 8.2 8.9 Neutrophils % 78.0 H Segmented Neutrophils % (Manual) 80 H Band Neutrophils % (Manual) 10 H Lymphocytes % 10.0 L Lymphocytes % (Manual) 8 L Monocytes % 9.1 Monocytes % (Manual) 2 Eosinophils % 0.0 Basophils % 0.1 Nucleated Red Blood Cells % 0.0 0.1 H Neutrophils # (Manual) 15.2 H 18.2 H Band Neutrophils # 1.8 H Absolute Lymphocytes (Manual) 1.4 Lymphocytes # 1.5 2.4 Monocytes # 0.4 2.1 H Absolute Monocytes (Manual) 0.3 Eosinophils # 0.0 Basophils # 0.0 Nucleated Red Blood Cells # 0.0 Bedside Glucose 119 153 Sodium Level 145 H Potassium Level 4.4 Chloride Level 110 Carbon Dioxide Level 26 Anion Gap 13 Blood Urea Nitrogen 54 H Creatinine 0.75 Glucose Level 130 # Calcium Level 12.3 H Magnesium Level 2.0 Total Bilirubin 0.0 L Direct Bilirubin 0.00 Indirect Bilirubin 0.0 Aspartate Amino Transf (AST/SGOT) 20 Alanine Aminotransferase (ALT/SGPT) 21 Alkaline Phosphatase 431 H Total Protein 7.0 Albumin 2.5 L Globulin 4.50 H Albumin/Globulin Ratio 0.55 Test 02/18/17 05:53 02/18/17 11:23 Bedside Glucose 118 126 Medications Current Medications Ondansetron HCl (Zofran Inj) 4 mg Q6H PRN IV NAUSEA AND/OR VOMITING Last administered on 02/05/17 09:36; Admin Dose 4 MG; Start 02/01/17 at 22:30 Acetaminophen (Tylenol Tab) 650 mg Q6H PRN PO PAIN LEVEL 1-3 OR FEVER Last administered on 02/17/17 21:21; Admin Dose 650 MG; Start 02/01/17 at 22:30 Acetaminophen/ Hydrocodone Bitart ([place] (5/325)) 1 tab Q6H PRN PO MODERATE PAIN LEVEL 4-6 Last administered on 02/04/17 21:07; Admin Dose 1 TAB; Start at 22:30 Hydromorphone HCl (Dilaudid) 0.5 mg Q4H PRN IV SEVERE PAIN LEVEL 7-10 Last administered on 02/18/17 11:28; Admin Dose 0.5 MG; Start 02/01/17 at 22:30 Docusate Sodium (Colace) 100 mg Q12H PRN PO CONSTIPATION; Start 02/01/17 at 22: 30 Magnesium Hydroxide (Milk Of Mag) 30 ml DAILY PRN PO CONSTIPATION; Start at 22:30 Bisacodyl (Dulcolax) 5 mg DAILY PRN PO CONSTIPATION; Start 02/01/17 at 22:30 Zolpidem Tartrate (Ambien) 5 mg QHS PRN PO SLEEP; Start 02/01/17 at 22:30 Lansoprazole (Prevacid) 30 mg DAILY@06 GTB Last administered on 02/18/17 05:48 ; Admin Dose 30 MG; Start 02/02/17 at 06:00 Enoxaparin Sodium (Lovenox) 40 mg DAILY SC Last administered on 02/18/17 08:48 ; Admin Dose 40 MG; Start 02/02/17 at 09:00 Ascorbic Acid (Vitamin C) 500 mg BID GTB Last administered on 02/18/17 08:45; Admin Dose 500 MG; Start 02/02/17 at 09:00 Diazepam (Valium) 5 mg DAILY PRN GTB ANXIETY Last administered on 02/08/17 20: 27; Admin Dose 5 MG; Start 02/01/17 at 22:30 Duloxetine HCl (Cymbalta) 20 mg DAILY GTB Last administered on 02/18/17 08:45; Admin Dose 20 MG; Start 02/02/17 at 09:00 Multivitamins Therapeutic (Theragran) 1 tab DAILY GTB Last administered on 08:45; Admin Dose 1 TAB; Start 02/02/17 at 09:00 Zinc Sulfate (Zinc Sulfate) 220 mg DAILY GTB Last administered on 02/18/17 08: 45; Admin Dose 220 MG; Start 02/02/17 at 09:00 Lactobacillus Acidophilus (Florajen3 Capsule) 1 each TID NGT Last administered on 02/18/17 11:11; Admin Dose 1 EACH; Start 02/02/17 at 09:00 Lactulose (Enulose) 20 gm BID PO Last administered on 02/18/17 08:45; Admin Dose 20 GM; Start 02/02/17 at 09:00 Collagenase (Santyl) 1 applic DAILY TOP Last administered on 02/17/17 09:41; Admin Dose 1 APPLIC; Start 02/02/17 at 09:00 Collagenase 1 applic 1 applic PRN PRN TOP PRN; Start 02/02/17 at 04:00 Linezolid 300 ml @ 300 mls/hr Q12 IVPB Last administered on 02/18/17 08:45; Admin Dose 300 MLS/HR; Start 02/09/17 at 15:00 Metronidazole 100 ml @ 100 mls/hr Q8 IVPB Last administered on 02/18/17 05:48 ; Admin Dose 100 MLS/HR; Start 02/09/17 at 14:00 Colistimethate Sodium/Sodium Chloride (Coly-Mycin/NS) 100 ml @ 200 mls/hr Q12H IVPB Last administered on 02/18/17 04:44; Admin Dose 200 MLS/HR; Start at 04:00 Sodium Hypochlorite (Dakin'S (1/4 Strength)) 1 applic DAILY IRR Last administered on 02/17/17 09:41; Admin Dose 1 APPLIC; Start 02/10/17 at 13:30 IV Flush (NS 10 ml) 10 ml PRN PRN IV FLUSH LINE; Start 02/10/17 at 15:30 Mupirocin (Bactroban) 1 applic BID TOP Last administered on 02/18/17 08:47; Admin Dose 1 APPLIC; Start 02/11/17 at 14:00 Dextrose 25 ml 25 ml IACHS PRN IV DECREASED GLUCOSE Last administered on 05:31; Admin Dose 25 ML; Start 02/13/17 at 08:30 Total Parenteral Nutrition (Tpn) 1,000 ml @ 60 mls/hr [id number] IV Last administered on 02/18/17 11:11; Admin Dose 60 MLS/HR; Start 02/13/17 at 16:00 Dextrose (D50w Syringe) 50 ml IV PRN IV DECREASED GLUCOSE Last administered on 02/13/17 18:07; Admin Dose 50 ML; Start 02/13/17 at 14:30 Fentanyl (Duragesic 25 Mcg/Hr Patch) 1 patch Q72H TRANSDERM Last administered on 02/17/17 16:06; Admin Dose 1 PATCH; Start 02/14/17 at 15:30 Diagnostic Test (Pha) (Accu-Chek) 1 ea Q6 XX Last administered on 02/18/17 05: 54; Admin Dose 1 EA; Start 02/14/17 at 18:00 IV Flush 10 ml 10 ml PRN PRN IV IV PROTOCOL; Start 02/15/17 at 21:30 Dextrose/Sodium Chloride 1,000 ml @ 50 mls/hr Q20H IV Last administered on 02/18 03:18; Admin Dose 50 MLS/HR; Start 02/17/17 at 07:00 Norepinephrine/ Dextrose (Levophed/D5W) 500 ml @ 1.87 mls/hr TITRATE IV Last administered on 02/17/17 11:38; Admin Dose 7.5 MLS/HR; Start 02/17/17 at 11:00 Assessment/Plan Chief Complaint/Hosp Course Assessment 1. Vent dependent respiratory failure 2. Status post septic shock with multiorgan failure. 3. Advanced lung cancer 4. Persistent leukocytosis 5. Lactic acidosis 6. Ileus 7. Anemia of chronic disease. No evidence of acute GI bleed. Plan 1. Continue mechanical ventilation 2. continue broad-spectrum antibiotics 3. Surgical recommendations 4. DVT GI prophylaxis 5. Hold off on PRBC today. Overall prognosis very poor. Agree with DNR CODE STATUS. consider palliative care consult. Stable for transfer to telemetry Problems: CASSIE VACA MD, [facility] Feb 18, 2017 12:54
--- NOTE | 2017-02-18 16:13 | PN ---
Date/Time of Note Date/Time of Note DATE: 02/18/17 TIME: 16:07 Assessment/Plan Lines/Catheters IV Catheter Type (from Nrs): PICC Line Story in Place (from Nrs): Yes Assessment/Plan Chief Complaint/Hosp Course 1. 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 Multiple decubitus ulcers with debris, with likely osteo -Offload -Optimize nutrition -Vitamin C -Local care with dakins -Debridement sacrococcyx prn when patient medically stable 3. Abdominal distention: possible ileus (likely as per CT since contrast in colon & bowel function) -decompression -monitor 4. Sepsis with tachycardia, hypotension and hypoglycemia: UTI +/- Bacteremia +/ - PNA + wounds. Off pressors. -supportive -abx per sensitivities -pulmonary toilet (titrating down) -optimize blood sugar 5. Acute on chronic diastolic heart failure -Judicious fluid management -Cardiac optimization 6. Hypoalbuminemia: inflammation/infection +/- malnutrition -as above -nutrition optimization 7. Depression. -Medical management 8. Hypothyroidism by history; TSH elevated -Synthroid adjustment per medicine 9. Normocytic anemia: chronic disease vs. acute bleed; no rogerio bleed noted: s/ p PRBC transfusion -monitor -transfuse as needed - per heme/onc 10. Chronic pain syndrome: patient with metastasis -continue pain management; consider non narcotic adjuncts 11. UTI: -abx per sensitivity/ID 12. Leukocytosis with bandemia: improved -as above 13. Chronic urinary retention with Story -perineal care -story care 14. Electrolyte imbalance: -optimize lytes Thank you, Problems: Subjective 24 Hr Interval Summary Off pressors. Out of ICU. Awake feels comfortable. Abdominal bloating improved. Bowel function. Leukocytosis worsening. Comfortable on vent. No fevers, chills, sob, congested cough, nausea, dysuria, excessive wound drainage , abdominal pain. Exam/Review of Systems Vital Signs Vitals Vital Signs Date Time Temp Pulse Resp B/P Pulse Ox O2 Delivery O2 Flow Rate FiO2 02/18/17 15:32 98.5 115 25 143/90 98 02/18/17 15:27 30 02/18/17 13:49 Mechanical Ventilator Intake and Output 02/17/17 02/17/17 02/18/17 15:00 23:00 07:00 Intake Total 1500.5 ml 1640 ml 1175 ml Output Total 1450 ml 2000 ml 900 ml Balance 50.5 ml -360 ml 275 ml Exam Free Text/Dictation Constitutional: awake, No distress Psych: anxious Head: atraumatic, normocephalic Eyes: nl conjunctiva, nl lids, nl sclera ENMT: mucosa pink and dry, nl external ears & nose, nl lips & teeth; ng tube Neck: non-tender, other (tracheostomy, non-reddened, no drainage noted), supple Respiratory: normal effort, no wheezing, min thin sputum Cardiovascular: nl pulses, regular rate and rhythm Gastrointestinal: non-tender, other (gtube, site non-tender, non-reddened), distention improved; hypoactive bowel sounds Musculoskeletal: nl extremities to inspection Extremities: normal pulses, extremity Edema +2 Neurological: nl mental status, No nl strength (gen weakness) Skin: No rash; wounds (sacral wound pink wound bed min slough with min/mod drainage) Results Result Diagram: 02/18/17 0445 02/18/17 0445 ZAK POSEY MD Feb 18, 2017 16:13
--- NOTE | 2017-02-18 16:43 | CONS ---
Date/Time of Note Date/Time of Note DATE: 02/18/17 TIME: 16:40 Assessment/Plan Assessment/Plan Additional Assessment/Plan 1. 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 septic shock - sp Levophed 3. Recurrent Multidrug Resistant Urinary tract infection 4. Sacral wound 5. Chronic resp failure 6.S/P Tracheostomy, S/p PEG tube placement 7. Lung CA- Squamous Cell CA 8. Hypercalcemia due to squamous cell CA of lung 9.Hypokalemia-resolved Plan: -Continue current IV abx Colimycin and zyvox , ID following, renally dos abx -Abdomen is slightly less distended, ventilatory support via tracheostomy, abdomen is tender, NG-tube to suction for stomach decompression, , continue TPN. -S/p 3 % saline on02/09/17- s/p tolvaptan 15 mg [id number] x 1 dose on 02/13/17- Na improved to 145 today - Ca came down to 12.7, ionized Ca is also high 1.9 - renal function has been normal , will give Pamidronate 30mg IV x 1 dose given on 02/15/17- expecting Ca to improve more -will follow up -Francisco Zapata Consultation Date/Type/Reason Admit Date/Time Feb 01, 2017 at 15:50 Initial Consult Date 02/01/17 Type of Consultation: Pulmonary Referring Provider: DRE LOBATO MD 24 HR Interval Summary Constitutional: requiring IVF, requiring O2 Exam/Review of Systems Vital Signs Vitals Vital Signs Date Time Temp Pulse Resp B/P Pulse Ox O2 Delivery O2 Flow Rate FiO2 02/18/17 16:21 118 02/18/17 15:32 98.5 25 143/90 98 02/18/17 15:27 30 02/18/17 13:49 Mechanical Ventilator Intake and Output 02/17/17 02/17/17 02/18/17 14:59 22:59 06:59 Intake Total 1450.5 ml 1640 ml 965 ml Output Total 1350 ml 2150 ml 800 ml Balance 100.5 ml -510 ml 165 ml Exam Constitutional: non-verbal Respiratory: diminished breath sounds Cardiovascular: nl pulses, regular rate and rhythm Gastrointestinal: non-tender, soft Musculoskeletal: muscle weakness Neurological: confused Skin: other Results Result Diagram: 02/18/17 0445 02/18/17 0445 Results 24 hrs Laboratory Tests Test 02/17/17 18:54 02/18/17 00:49 02/18/17 04:45 02/18/17 05:53 Bedside Glucose 119 153 118 White Blood Count 23.4 #H Red Blood Count 2.98 L Hemoglobin 7.9 L Hematocrit 25.6 L Mean Corpuscular Volume 85.9 Mean Corpuscular Hemoglobin 26.5 L Mean Corpuscular Hemoglobin Concent 30.9 L Red Cell Distribution Width 18.2 H Platelet Count 143 Mean Platelet Volume 8.9 Neutrophils % 78.0 H Lymphocytes % 10.0 L Monocytes % 9.1 Eosinophils % 0.0 Basophils % 0.1 Nucleated Red Blood Cells % 0.1 H Neutrophils # (Manual) 18.2 H Lymphocytes # 2.4 Monocytes # 2.1 H Eosinophils # 0.0 Basophils # 0.0 Nucleated Red Blood Cells # 0.0 Sodium Level 145 H Potassium Level 4.4 Chloride Level 110 Carbon Dioxide Level 26 Anion Gap 13 Blood Urea Nitrogen 54 H Creatinine 0.75 Glucose Level 130 # Calcium Level 12.3 H Magnesium Level 2.0 Total Bilirubin 0.0 L Direct Bilirubin 0.00 Indirect Bilirubin 0.0 Aspartate Amino Transf (AST/SGOT) 20 Alanine Aminotransferase (ALT/SGPT) 21 Alkaline Phosphatase 431 H Total Protein 7.0 Albumin 2.5 L Globulin 4.50 H Albumin/Globulin Ratio 0.55 Test 02/18/17 11:23 Bedside Glucose 126 Medications Medications Current Medications Ondansetron HCl (Zofran Inj) 4 mg Q6H PRN IV NAUSEA AND/OR VOMITING Last administered on 02/05/17 09:36; Admin Dose 4 MG; Start 02/01/17 at 22:30 Acetaminophen (Tylenol Tab) 650 mg Q6H PRN PO PAIN LEVEL 1-3 OR FEVER Last administered on 02/17/17 21:21; Admin Dose 650 MG; Start 02/01/17 at 22:30 Acetaminophen/ Hydrocodone Bitart ([place] (5/325)) 1 tab Q6H PRN PO MODERATE PAIN LEVEL 4-6 Last administered on 02/04/17 21:07; Admin Dose 1 TAB; Start at 22:30 Hydromorphone HCl (Dilaudid) 0.5 mg Q4H PRN IV SEVERE PAIN LEVEL 7-10 Last administered on 02/18/17 11:28; Admin Dose 0.5 MG; Start 02/01/17 at 22:30 Docusate Sodium (Colace) 100 mg Q12H PRN PO CONSTIPATION; Start 02/01/17 at 22: 30 Magnesium Hydroxide (Milk Of Mag) 30 ml DAILY PRN PO CONSTIPATION; Start at 22:30 Bisacodyl (Dulcolax) 5 mg DAILY PRN PO CONSTIPATION; Start 02/01/17 at 22:30 Zolpidem Tartrate (Ambien) 5 mg QHS PRN PO SLEEP; Start 02/01/17 at 22:30 Lansoprazole (Prevacid) 30 mg DAILY@06 GTB Last administered on 02/18/17 05:48 ; Admin Dose 30 MG; Start 02/02/17 at 06:00 Enoxaparin Sodium (Lovenox) 40 mg DAILY SC Last administered on 02/18/17 08:48 ; Admin Dose 40 MG; Start 02/02/17 at 09:00 Ascorbic Acid (Vitamin C) 500 mg BID GTB Last administered on 02/18/17 08:45; Admin Dose 500 MG; Start 02/02/17 at 09:00 Diazepam (Valium) 5 mg DAILY PRN GTB ANXIETY Last administered on 02/08/17 20: 27; Admin Dose 5 MG; Start 02/01/17 at 22:30 Duloxetine HCl (Cymbalta) 20 mg DAILY GTB Last administered on 02/18/17 08:45; Admin Dose 20 MG; Start 02/02/17 at 09:00 Multivitamins Therapeutic (Theragran) 1 tab DAILY GTB Last administered on 08:45; Admin Dose 1 TAB; Start 02/02/17 at 09:00 Zinc Sulfate (Zinc Sulfate) 220 mg DAILY GTB Last administered on 02/18/17 08: 45; Admin Dose 220 MG; Start 02/02/17 at 09:00 Lactobacillus Acidophilus (Florajen3 Capsule) 1 each TID NGT Last administered on 02/18/17 14:08; Admin Dose 1 EACH; Start 02/02/17 at 09:00 Lactulose (Enulose) 20 gm BID PO Last administered on 02/18/17 08:45; Admin Dose 20 GM; Start 02/02/17 at 09:00 Collagenase (Santyl) 1 applic DAILY TOP Last administered on 02/17/17 09:41; Admin Dose 1 APPLIC; Start 02/02/17 at 09:00 Collagenase 1 applic 1 applic PRN PRN TOP PRN; Start 02/02/17 at 04:00 Linezolid 300 ml @ 300 mls/hr Q12 IVPB Last administered on 02/18/17 08:45; Admin Dose 300 MLS/HR; Start 02/09/17 at 15:00 Metronidazole 100 ml @ 100 mls/hr Q8 IVPB Last administered on 02/18/17 14:07 ; Admin Dose 100 MLS/HR; Start 02/09/17 at 14:00 Colistimethate Sodium/Sodium Chloride (Coly-Mycin/NS) 100 ml @ 200 mls/hr Q12H IVPB Last administered on 02/18/17 04:44; Admin Dose 200 MLS/HR; Start at 04:00 Sodium Hypochlorite (Dakin'S (1/4 Strength)) 1 applic DAILY IRR Last administered on 02/17/17 09:41; Admin Dose 1 APPLIC; Start 02/10/17 at 13:30 IV Flush (NS 10 ml) 10 ml PRN PRN IV FLUSH LINE; Start 02/10/17 at 15:30 Mupirocin (Bactroban) 1 applic BID TOP Last administered on 02/18/17 08:47; Admin Dose 1 APPLIC; Start 02/11/17 at 14:00 Dextrose 25 ml 25 ml IACHS PRN IV DECREASED GLUCOSE Last administered on 05:31; Admin Dose 25 ML; Start 02/13/17 at 08:30 Total Parenteral Nutrition (Tpn) 1,000 ml @ 60 mls/hr [id number] IV Last administered on 02/18/17 11:11; Admin Dose 60 MLS/HR; Start 02/13/17 at 16:00 Dextrose (D50w Syringe) 50 ml IV PRN IV DECREASED GLUCOSE Last administered on 02/13/17 18:07; Admin Dose 50 ML; Start 02/13/17 at 14:30 Fentanyl (Duragesic 25 Mcg/Hr Patch) 1 patch Q72H TRANSDERM Last administered on 02/17/17 16:06; Admin Dose 1 PATCH; Start 02/14/17 at 15:30 Diagnostic Test (Pha) (Accu-Chek) 1 ea Q6 XX Last administered on 02/18/17 05: 54; Admin Dose 1 EA; Start 02/14/17 at 18:00 IV Flush 10 ml 10 ml PRN PRN IV IV PROTOCOL; Start 02/15/17 at 21:30 Dextrose/Sodium Chloride (D5-NS) 1,000 ml @ 50 mls/hr Q20H IV Last administered on 02/18/17 03:18; Admin Dose 50 MLS/HR; Start 02/17/17 at 07:00 VIKASH CASTANEDA Feb 18, 2017 16:43
--- NOTE | 2017-02-18 18:56 | CONS ---
Date/Time of Note Date/Time of Note DATE: 02/18/17 TIME: 18:54 Assessment/Plan Assessment/Plan Chief Complaint/Hosp Course ID PROGRESS NOTE ABX Day # => Zyvox #10 + Colistin IV #10 + Flagyl #10 s/p IV Bactrim/Cefepime s/p Vanco 24H INTERVAL SUMMARY * Clinically status quo -- frail 66 yo F w/multiple recurrent septic issues, intermittent confusion -- no fevers * No new issues --- afebrile, WBC up today , CXR 02/15 = LL mass unchanged * Lethargic, NGT, Trach-> Vented * MICROBIOLOGY: * Urine (+) Acinetobacter baumannii. * Nares (+)MRSA. * Wound cx: (+)ACBA, MRSA, VRE, PSAR, Stenotrophomonas maltophilia, Proteus mirabilis. PHYSICAL EXAMINATION: GENERAL: Chronically ill-appearing, frail 66 yo F HEENT: Unremarkable except wearing eyeglasses, missing multiple teeth, (+)NGT secure NECK: Trach (+) secure to Vent CHEST: Rise symmetrical without dyspnea ABDOMEN: Soft EXTREMITIES: Moves all extremities, Without cyanosis. SKIN: See photos -- Hip + large decub sacral unstageable ID ASSESSMENT: 66 yo F w/PMHx Dementia, CVA(chronic left thalamic lacunar infarction), Tobacco/ COPD-Emphysema/Lung Cancer re-admit with: 1. s/p Sepsis on admission w/septic + hypovolemic shock, leukocytosis, low grade temps=> Multifactorial * Afebrile current * Hx of Chronic mild tachycardia - albuterol * Leukocytosis => Down today w/hx of chronic elevated WBC 2. Recurrent Complicated UTI, => due to urinary retention with chronic George = > Probable neurogenic bladder * Urine Cx: 02/01 (+)ACBA; 02/02 (+)ACBA 3. 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 Acute on chronic anemia 5. GERD, Dysphagia, hx GIB 6. Chronic respiratory failure w/Tracheostomy = Multifactorial * COPD: Tobaccoism * Aspiration Pneumonitis = 02/02 Sputum (+)PSAR, Stenotrophomonas Maltophilia, Proteus Mirabilis * Hx of PSAR HCAP w/PSAR Trach colonization * Hx of lung cancer w/lobe resection remote 7. 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 H/O DJD spine -> Hx of lumbar spinal fusion 9. Hx of recurrent C.Diff colitis 10. Chronic debility w/Cachexia 11. Chronic pain issues 12. Psych Dx NOS: Hx of Dementia w/intermittent agitative features 13. DECUBS: * Sacral decub: s/p debridement 01/11/17 ; 02/02 Wound cx: (+)ACBA, MRSA, VRE, PSAR, Stenotrophomonas maltophilia, Proteus mirabilis. * Hip Wound Cx 02/01: (+)MM, CRKP, MRSA, VRE (+) MRSA Nares ->Bactroban INVASIVES: PICC (02/10/17), FC, Peg, NGT ALLERGY: PENICILLIN. CURRENT ABX: Zyvox #10 + Colistin IV #10 + Flagyl #10 s/p IV Bactrim/Cefepime s/p Vanco ID PLAN * Poor prognosis for meaningful recovery, CHEM CODE only * Continue current ABX; recurrent acute on chronic sepsis difficult to eradicate ; she is growing multiple ABX resistant organism . Problems: Consultation Date/Type/Reason Admit Date/Time Feb 01, 2017 at 15:50 Initial Consult Date 02/09/17 Type of Consultation: ID Referring Provider: DRE LOBATO MD Exam/Review of Systems Vital Signs Vitals Vital Signs Date Time Temp Pulse Resp B/P Pulse Ox O2 Delivery O2 Flow Rate FiO2 02/18/17 17:19 103 29 98 30 02/18/17 15:32 98.5 143/90 02/18/17 13:49 Mechanical Ventilator Intake and Output 02/17/17 02/17/17 02/18/17 15:00 23:00 07:00 Intake Total 1500.5 ml 1640 ml 1175 ml Output Total 1450 ml 2000 ml 900 ml Balance 50.5 ml -360 ml 275 ml Results Result Diagram: 02/18/17 0445 02/18/17 0445 Results 24 hrs Laboratory Tests Test 02/18/17 00:49 02/18/17 04:45 02/18/17 05:53 02/18/17 11:23 Bedside Glucose 153 118 126 White Blood Count 23.4 #H Red Blood Count 2.98 L Hemoglobin 7.9 L Hematocrit 25.6 L Mean Corpuscular Volume 85.9 Mean Corpuscular Hemoglobin 26.5 L Mean Corpuscular Hemoglobin Concent 30.9 L Red Cell Distribution Width 18.2 H Platelet Count 143 Mean Platelet Volume 8.9 Neutrophils % 78.0 H Lymphocytes % 10.0 L Monocytes % 9.1 Eosinophils % 0.0 Basophils % 0.1 Nucleated Red Blood Cells % 0.1 H Neutrophils # (Manual) 18.2 H Lymphocytes # 2.4 Monocytes # 2.1 H Eosinophils # 0.0 Basophils # 0.0 Nucleated Red Blood Cells # 0.0 Sodium Level 145 H Potassium Level 4.4 Chloride Level 110 Carbon Dioxide Level 26 Anion Gap 13 Blood Urea Nitrogen 54 H Creatinine 0.75 Glucose Level 130 # Calcium Level 12.3 H Magnesium Level 2.0 Total Bilirubin 0.0 L Direct Bilirubin 0.00 Indirect Bilirubin 0.0 Aspartate Amino Transf (AST/SGOT) 20 Alanine Aminotransferase (ALT/SGPT) 21 Alkaline Phosphatase 431 H Total Protein 7.0 Albumin 2.5 L Globulin 4.50 H Albumin/Globulin Ratio 0.55 Test 02/18/17 17:21 Bedside Glucose 96 Medications Medications Current Medications Ondansetron HCl (Zofran Inj) 4 mg Q6H PRN IV NAUSEA AND/OR VOMITING Last administered on 02/05/17 09:36; Admin Dose 4 MG; Start 02/01/17 at 22:30 Acetaminophen (Tylenol Tab) 650 mg Q6H PRN PO PAIN LEVEL 1-3 OR FEVER Last administered on 02/17/17 21:21; Admin Dose 650 MG; Start 02/01/17 at 22:30 Acetaminophen/ Hydrocodone Bitart ([place] (5/325)) 1 tab Q6H PRN PO MODERATE PAIN LEVEL 4-6 Last administered on 02/04/17 21:07; Admin Dose 1 TAB; Start at 22:30 Hydromorphone HCl (Dilaudid) 0.5 mg Q4H PRN IV SEVERE PAIN LEVEL 7-10 Last administered on 02/18/17 11:28; Admin Dose 0.5 MG; Start 02/01/17 at 22:30 Docusate Sodium (Colace) 100 mg Q12H PRN PO CONSTIPATION; Start 02/01/17 at 22: 30 Magnesium Hydroxide (Milk Of Mag) 30 ml DAILY PRN PO CONSTIPATION; Start at 22:30 Bisacodyl (Dulcolax) 5 mg DAILY PRN PO CONSTIPATION; Start 02/01/17 at 22:30 Zolpidem Tartrate (Ambien) 5 mg QHS PRN PO SLEEP; Start 02/01/17 at 22:30 Lansoprazole (Prevacid) 30 mg DAILY@06 GTB Last administered on 02/18/17 05:48 ; Admin Dose 30 MG; Start 02/02/17 at 06:00 Enoxaparin Sodium (Lovenox) 40 mg DAILY SC Last administered on 02/18/17 08:48 ; Admin Dose 40 MG; Start 02/02/17 at 09:00 Ascorbic Acid (Vitamin C) 500 mg BID GTB Last administered on 02/18/17 08:45; Admin Dose 500 MG; Start 02/02/17 at 09:00 Diazepam (Valium) 5 mg DAILY PRN GTB ANXIETY Last administered on 02/08/17 20: 27; Admin Dose 5 MG; Start 02/01/17 at 22:30 Duloxetine HCl (Cymbalta) 20 mg DAILY GTB Last administered on 02/18/17 08:45; Admin Dose 20 MG; Start 02/02/17 at 09:00 Multivitamins Therapeutic (Theragran) 1 tab DAILY GTB Last administered on 08:45; Admin Dose 1 TAB; Start 02/02/17 at 09:00 Zinc Sulfate (Zinc Sulfate) 220 mg DAILY GTB Last administered on 02/18/17 08: 45; Admin Dose 220 MG; Start 02/02/17 at 09:00 Lactobacillus Acidophilus (Florajen3 Capsule) 1 each TID NGT Last administered on 02/18/17 14:08; Admin Dose 1 EACH; Start 02/02/17 at 09:00 Lactulose (Enulose) 20 gm BID PO Last administered on 02/18/17 08:45; Admin Dose 20 GM; Start 02/02/17 at 09:00 Collagenase (Santyl) 1 applic DAILY TOP Last administered on 02/17/17 09:41; Admin Dose 1 APPLIC; Start 02/02/17 at 09:00 Collagenase 1 applic 1 applic PRN PRN TOP PRN; Start 02/02/17 at 04:00 Linezolid 300 ml @ 300 mls/hr Q12 IVPB Last administered on 02/18/17 08:45; Admin Dose 300 MLS/HR; Start 02/09/17 at 15:00 Metronidazole 100 ml @ 100 mls/hr Q8 IVPB Last administered on 02/18/17 14:07 ; Admin Dose 100 MLS/HR; Start 02/09/17 at 14:00 Colistimethate Sodium/Sodium Chloride (Coly-Mycin/NS) 100 ml @ 200 mls/hr Q12H IVPB Last administered on 02/18/17 18:00; Admin Dose 200 MLS/HR; Start at 04:00 Sodium Hypochlorite (Dakin'S (1/4 Strength)) 1 applic DAILY IRR Last administered on 02/17/17 09:41; Admin Dose 1 APPLIC; Start 02/10/17 at 13:30 IV Flush (NS 10 ml) 10 ml PRN PRN IV FLUSH LINE; Start 02/10/17 at 15:30 Mupirocin (Bactroban) 1 applic BID TOP Last administered on 02/18/17 08:47; Admin Dose 1 APPLIC; Start 02/11/17 at 14:00 Dextrose 25 ml 25 ml IACHS PRN IV DECREASED GLUCOSE Last administered on 05:31; Admin Dose 25 ML; Start 02/13/17 at 08:30 Total Parenteral Nutrition (Tpn) 1,000 ml @ 60 mls/hr [id number] IV Last administered on 02/18/17 11:11; Admin Dose 60 MLS/HR; Start 02/13/17 at 16:00 Dextrose (D50w Syringe) 50 ml IV PRN IV DECREASED GLUCOSE Last administered on 02/13/17 18:07; Admin Dose 50 ML; Start 02/13/17 at 14:30 Fentanyl (Duragesic 25 Mcg/Hr Patch) 1 patch Q72H TRANSDERM Last administered on 02/17/17 16:06; Admin Dose 1 PATCH; Start 02/14/17 at 15:30 Diagnostic Test (Pha) (Accu-Chek) 1 ea Q6 XX Last administered on 02/18/17 17: 25; Admin Dose 1 EA; Start 02/14/17 at 18:00 IV Flush 10 ml 10 ml PRN PRN IV IV PROTOCOL; Start 02/15/17 at 21:30 Dextrose/Sodium Chloride (D5-NS) 1,000 ml @ 50 mls/hr Q20H IV Last administered on 02/18/17t 03:18; Admin Dose 50 MLS/HR; Start 02/17/17 at 07:00 ALMA ROSARIO NP Feb 18, 2017 18:56
--- NOTE | 2017-02-18 22:26 | CONS ---
Date/Time of Note Date/Time of Note DATE: 02/18/17 TIME: 22:26 Assessment/Plan Assessment/Plan Chief Complaint/Hosp Course -Anemia, POST PRBC transfuse packed red blood cells as needed continue to monitor H&H. COMPLEX, MULTIFACTORIAL -Left lung squamous carcinoma, NOW WITH POS LIVER METS supportive care no aggressive treatment planned HYPERCALCEMIA POST AREDIA - SBO NOW ON CONSERVATIVE MANAGEMENT -Sepsis, most likely secondary to urinary tract infection and possible postobstructive pneumonia. Dr. Coleman is following infection disease consultation, follow-up on cultures, continue antibiotics per ID. -Hyponatremia, nephrology f-up, continue IV fluids per renal. -Ventilator dependent respiratory failure with tracheostomy, continue breathing treatments. -COPD -Dysphagia with PEG -History of cardiopulmonary arrest -Multiple wounds present on admission, that is post debridement at last admission. -Hypothyroidism -Chronic urinary retention with George catheter PROGNOSIS- POOR Problems: Consultation Date/Type/Reason Admit Date/Time Feb 01, 2017 at 15:50 Initial Consult Date 02/08/17 Type of Consultation: hemeon Referring Provider: DRE LOBATO MD 24 HR Interval Summary Free Text/Dictation ALL NOTED COUNT REVIEWED NO BLEEDING NO NEW EVENTS IN ICU Exam/Review of Systems Vital Signs Vitals Vital Signs Date Time Temp Pulse Resp B/P Pulse Ox O2 Delivery O2 Flow Rate FiO2 02/18/17 21:26 110 28 99 30 02/18/17 20:11 98.8 123/86 02/18/17 13:49 Mechanical Ventilator Intake and Output 02/17/17 02/17/17 02/18/17 15:00 23:00 07:00 Intake Total 1500.5 ml 1640 ml 1175 ml Output Total 1450 ml 2000 ml 900 ml Balance 50.5 ml -360 ml 275 ml Exam Constitutional: awake, No distress Psych: anxious Head: atraumatic, normocephalic Eyes: nl conjunctiva, nl lids, nl sclera ENMT: mucosa pink and dry, nl external ears & nose, nl lips & teeth; ng tube Neck: non-tender, other (tracheostomy, non-reddened, no drainage noted), supple Respiratory: normal effort, no wheezing, min thin sputum Cardiovascular: nl pulses, regular rate and rhythm Gastrointestinal: non-tender, other (gtube, site non-tender, non-reddened), distention improved; hypoactive bowel sounds Musculoskeletal: nl extremities to inspection Extremities: normal pulses, extremity Edema +2 Neurological: nl mental status, No nl strength (gen weakness) Skin: No rash; wounds (sacral wound pink woundbed min slough with min/mod drainage) Results Result Diagram: 02/18/17 0445 02/18/17 0445 Results 24 hrs Laboratory Tests Test 02/18/17 00:49 02/18/17 04:45 02/18/17 05:53 02/18/17 11:23 Bedside Glucose 153 118 126 White Blood Count 23.4 #H Red Blood Count 2.98 L Hemoglobin 7.9 L Hematocrit 25.6 L Mean Corpuscular Volume 85.9 Mean Corpuscular Hemoglobin 26.5 L Mean Corpuscular Hemoglobin Concent 30.9 L Red Cell Distribution Width 18.2 H Platelet Count 143 Mean Platelet Volume 8.9 Neutrophils % 78.0 H Lymphocytes % 10.0 L Monocytes % 9.1 Eosinophils % 0.0 Basophils % 0.1 Nucleated Red Blood Cells % 0.1 H Neutrophils # (Manual) 18.2 H Lymphocytes # 2.4 Monocytes # 2.1 H Eosinophils # 0.0 Basophils # 0.0 Nucleated Red Blood Cells # 0.0 Sodium Level 145 H Potassium Level 4.4 Chloride Level 110 Carbon Dioxide Level 26 Anion Gap 13 Blood Urea Nitrogen 54 H Creatinine 0.75 Glucose Level 130 # Calcium Level 12.3 H Magnesium Level 2.0 Total Bilirubin 0.0 L Direct Bilirubin 0.00 Indirect Bilirubin 0.0 Aspartate Amino Transf (AST/SGOT) 20 Alanine Aminotransferase (ALT/SGPT) 21 Alkaline Phosphatase 431 H Total Protein 7.0 Albumin 2.5 L Globulin 4.50 H Albumin/Globulin Ratio 0.55 Test 02/18/17 17:21 Bedside Glucose 96 Medications Medications Current Medications Ondansetron HCl (Zofran Inj) 4 mg Q6H PRN IV NAUSEA AND/OR VOMITING Last administered on 02/05/17 09:36; Admin Dose 4 MG; Start 02/01/17 at 22:30 Acetaminophen (Tylenol Tab) 650 mg Q6H PRN PO PAIN LEVEL 1-3 OR FEVER Last administered on 02/17/17 21:21; Admin Dose 650 MG; Start 02/01/17 at 22:30 Acetaminophen/ Hydrocodone Bitart ([place] (5/325)) 1 tab Q6H PRN PO MODERATE PAIN LEVEL 4-6 Last administered on 02/04/17 21:07; Admin Dose 1 TAB; Start at 22:30 Hydromorphone HCl (Dilaudid) 0.5 mg Q4H PRN IV SEVERE PAIN LEVEL 7-10 Last administered on 02/18/17 11:28; Admin Dose 0.5 MG; Start 02/01/17 at 22:30 Docusate Sodium (Colace) 100 mg Q12H PRN PO CONSTIPATION; Start 02/01/17 at 22: 30 Magnesium Hydroxide (Milk Of Mag) 30 ml DAILY PRN PO CONSTIPATION; Start at 22:30 Bisacodyl (Dulcolax) 5 mg DAILY PRN PO CONSTIPATION; Start 02/01/17 at 22:30 Zolpidem Tartrate (Ambien) 5 mg QHS PRN PO SLEEP; Start 02/01/17 at 22:30 Lansoprazole (Prevacid) 30 mg DAILY@06 GTB Last administered on 02/18/17 05:48 ; Admin Dose 30 MG; Start 02/02/17 at 06:00 Enoxaparin Sodium (Lovenox) 40 mg DAILY SC Last administered on 02/18/17 08:48 ; Admin Dose 40 MG; Start 02/02/17 at 09:00 Ascorbic Acid (Vitamin C) 500 mg BID GTB Last administered on 02/18/17 20:54; Admin Dose 500 MG; Start 02/02/17 at 09:00 Diazepam (Valium) 5 mg DAILY PRN GTB ANXIETY Last administered on 02/08/17 20: 27; Admin Dose 5 MG; Start 02/01/17 at 22:30 Duloxetine HCl (Cymbalta) 20 mg DAILY GTB Last administered on 02/18/17 08:45; Admin Dose 20 MG; Start 02/02/17 at 09:00 Multivitamins Therapeutic (Theragran) 1 tab DAILY GTB Last administered on 08:45; Admin Dose 1 TAB; Start 02/02/17 at 09:00 Zinc Sulfate (Zinc Sulfate) 220 mg DAILY GTB Last administered on 02/18/17 08: 45; Admin Dose 220 MG; Start 02/02/17 at 09:00 Lactobacillus Acidophilus (Florajen3 Capsule) 1 each TID NGT Last administered on 02/18/17 20:54; Admin Dose 1 EACH; Start 02/02/17 at 09:00 Lactulose (Enulose) 20 gm BID PO Last administered on 02/18/17 20:54; Admin Dose 20 GM; Start 02/02/17 at 09:00 Collagenase (Santyl) 1 applic DAILY TOP Last administered on 02/17/17 09:41; Admin Dose 1 APPLIC; Start 02/02/17 at 09:00 Collagenase 1 applic 1 applic PRN PRN TOP PRN; Start 02/02/17 at 04:00 Linezolid 300 ml @ 300 mls/hr Q12 IVPB Last administered on 02/18/17 20:55; Admin Dose 300 MLS/HR; Start 02/09/17 at 15:00 Metronidazole 100 ml @ 100 mls/hr Q8 IVPB Last administered on 02/18/17 21:04 ; Admin Dose 100 MLS/HR; Start 02/09/17 at 14:00 Colistimethate Sodium/Sodium Chloride (Coly-Mycin/NS) 100 ml @ 200 mls/hr Q12H IVPB Last administered on 02/18/17 18:00; Admin Dose 200 MLS/HR; Start at 04:00 Sodium Hypochlorite (Dakin'S (1/4 Strength)) 1 applic DAILY IRR Last administered on 02/17/17 09:41; Admin Dose 1 APPLIC; Start 02/10/17 at 13:30 IV Flush (NS 10 ml) 10 ml PRN PRN IV FLUSH LINE; Start 02/10/17 at 15:30 Mupirocin (Bactroban) 1 applic BID TOP Last administered on 02/18/17 20:54; Admin Dose 1 APPLIC; Start 02/11/17 at 14:00 Dextrose 25 ml 25 ml IACHS PRN IV DECREASED GLUCOSE Last administered on 05:31; Admin Dose 25 ML; Start 02/13/17 at 08:30 Total Parenteral Nutrition (Tpn) 1,000 ml @ 60 mls/hr [id number] IV Last administered on 02/18/17 11:11; Admin Dose 60 MLS/HR; Start 02/13/17 at 16:00 Dextrose (D50w Syringe) 50 ml IV PRN IV DECREASED GLUCOSE Last administered on 02/13/17 18:07; Admin Dose 50 ML; Start 02/13/17 at 14:30 Fentanyl (Duragesic 25 Mcg/Hr Patch) 1 patch Q72H TRANSDERM Last administered on 02/17/17 16:06; Admin Dose 1 PATCH; Start 02/14/17 at 15:30 Diagnostic Test (Pha) (Accu-Chek) 1 ea Q6 XX Last administered on 02/18/17 17: 25; Admin Dose 1 EA; Start 02/14/17 at 18:00 IV Flush 10 ml 10 ml PRN PRN IV IV PROTOCOL; Start 02/15/17 at 21:30 Dextrose/Sodium Chloride (D5-NS) 1,000 ml @ 50 mls/hr Q20H IV Last administered on 02/18/17 03:18; Admin Dose 50 MLS/HR; Start 02/17/17 at 07:00 DYLLAN CARRION MD Feb 18, 2017 22:26
[2017-02-19] VITALS (31 sets, daily range): BP systolic 76–120; BP diastolic 51–84; PULSE 119–144; RESP 17–35
[2017-02-19] MEDS: IPRATROPIUM (HFA) 12.9 GM INHALER INH SCH ×4 (01:21→20:17)
[2017-02-19] MEDS: ALBUTEROL 18 GM INHALER INH SCH ×4 (01:22→20:17)
[2017-02-19] MEDS: COLISTIMETHATE 100 MG in SOD CHLORIDE 0.9% 100 ML IVPB SCH ×2 (03:19→16:18)
[2017-02-19] MEDS: TPN 1,000 ML IV SCH ×2 (04:25→15:04)
[2017-02-19] MEDS: ACETAMINOPHEN 325 MG TAB PO PRN (04:25)
[2017-02-19] MEDS: LANSOPRAZOLE 30 MG CAP GTB SCH (04:58)
[2017-02-19] MEDS: metroNIDAZOLE 500 MG/NS (PMX) 100 ML IVPB SCH ×3 (05:00→22:33)
[2017-02-19] MEDS: ACCU-CHEK XX SCH ×4 (05:00→18:00)
[2017-02-19 07:17] LABS: ABNORMAL IP MESSAGE 1; HEMATOCRIT 27.5 % (37.0-47.0); HEMOGLOBIN 8.5 g/dl (12.0-16.0); MEAN CORPUSCULAR HEMOGLOBIN 26.3 pg (29.0-33.0); MEAN CORPUSCULAR HGB CONC 30.9 g/dl (32.0-37.0); MEAN CORPUSCULAR VOLUME 85.1 fl (82.0-101.0); MEAN PLATELET VOLUME 9.2 fl (7.4-10.4); NUCLEATED RED BLOOD CELLS% 0.1 /100WBC (0.0-0.0); PLATELET COUNT 87 10^3/UL (140-415); RED BLOOD COUNT 3.23 10^6/ul (4.20-5.40); RED CELL DISTRIBUTION WIDTH 18.5 % (11.5-14.5); WHITE BLOOD COUNT 23.1 10^3/ul (4.8-10.8)
[2017-02-19 07:22] LABS: POSITIVE DIFF @See below
[2017-02-19 07:33] LABS: CALCIUM 11.4 mg/dl (8.4-10.2); CREATININE 0.76 mg/dl (0.44-1.00)
[2017-02-19 07:53] LABS: POTASSIUM 4.3 mmol/L (3.5-5.1)
[2017-02-19] MEDS: LACTULOSE 30ML CUP PO SCH ×2 (09:00→20:40)
[2017-02-19] MEDS: MULTIVITAMINS THERAPEUTIC TAB GTB SCH (09:00)
[2017-02-19] MEDS: DULOXETINE 20 MG CAP DR GTB SCH (09:00)
[2017-02-19] MEDS: MUPIROCIN 2% 22 GM OINT TOP SCH ×2 (09:00→23:00)
[2017-02-19] MEDS: ZINC SULFATE 220 MG CAP GTB SCH (09:00)
[2017-02-19] MEDS: L ACIDOPHIL/B LACTIS/B LONGUM CAPSULE NGT SCH ×3 (09:00→20:40)
[2017-02-19] MEDS: ASCORBIC ACID 500 MG TAB GTB SCH ×2 (09:00→20:40)
[2017-02-19 09:06] LABS: ANISOCYTOSIS 1+ (0-0); EOSINOPHILS % (M) 3 % (0-7); HYPOCHROMASIA 1+ (0-0); MONOCYTES % (M) 3 % (0-11); PLATELET ESTIMATE DECREASED; POLYCHROMASIA 3+ (0-0)
--- NOTE | 2017-02-19 10:09 | CONS ---
Date/Time of Note Date/Time of Note DATE: 02/19/17 TIME: 10:06 Assessment/Plan Assessment/Plan Additional Assessment/Plan Ventilator setting; AC of 14, tidal volume 450, PEEP of 5, 30% FiO2. Assessment and recommendations; 1. Patient admitted with pneumonia and severe sepsis from decubitus ulcers, requiring multiple hospitalizations in the past. 2. Chronic respiratory failure. 3. Likely left lower lobe lung malignancy, patient has been too unstable to get any kind of workup done. 4. Anemia. 5. Severe generalized deconditioning. 6. Persistent ileus. On TPN. Continue current treatment. Prognosis is poor. Consultation Date/Type/Reason Admit Date/Time Feb 01, 2017 at 15:50 Initial Consult Date 02/09/17 Type of Consultation: Pulmonary Referring Provider: DRE LOBATO MD 24 HR Interval Summary Free Text/Dictation Patient condition remains tenuous at best. Still requiring TPN for persistent ileus. Patient however has remained hemodynamically stable. General exam; elderly woman, on ventilator via tracheostomy, currently in no distress. Awake and alert. Exam/Review of Systems Vital Signs Vitals Vital Signs Date Time Temp Pulse Resp B/P Pulse Ox O2 Delivery O2 Flow Rate FiO2 02/19/17 09:05 137 35 96 30 02/19/17 07:44 100.5 106/73 02/18/17 13:49 Mechanical Ventilator Intake and Output 02/18/17 02/18/17 02/19/17 15:00 23:00 07:00 Intake Total 1050 ml 1100 ml 1880 ml Output Total 1150 ml 300 ml 2000 ml Balance -100 ml 800 ml -120 ml Exam HEENT exam; supple neck, no JVD. No lymphadenopathy. Midline trachea. No thyromegaly. Tracheostomy in place. Patient has a multiple Chest exam; diminished but clear breath sound. S1-S2 audible, no murmurs. Regular rhythm. Abdomen exam; soft, G-tube in place. Bowel sounds are absent. Abdomen is mildly tender. Extremity exam; trace edema. Back examination; dressing applied over sacrum. [employer] exam; no focal motor deficit. Results Result Diagram: 02/19/17 0611 02/19/17 0611 Results 24 hrs Laboratory Tests Test 02/18/17 11:23 02/18/17 17:21 02/19/17 00:49 02/19/17 04:56 Bedside Glucose 126 96 102 76 Test 02/19/17 06:11 02/19/17 08:16 White Blood Count 23.1 H Red Blood Count 3.23 L Hemoglobin 8.5 L Hematocrit 27.5 L Mean Corpuscular Volume 85.1 Mean Corpuscular Hemoglobin 26.3 L Mean Corpuscular Hemoglobin Concent 30.9 L Red Cell Distribution Width 18.5 H Platelet Count 87 #L Mean Platelet Volume 9.2 Neutrophils % Segmented Neutrophils % (Manual) 71 Band Neutrophils % (Manual) 5 H Lymphocytes % Lymphocytes % (Manual) 18 Monocytes % Monocytes % (Manual) 3 Eosinophils % Eosinophils % (Manual) 3 Basophils % Nucleated Red Blood Cells % 0.1 H Neutrophils # (Manual) 16.7 H Band Neutrophils # 1.1 H Absolute Lymphocytes (Manual) 4.1 H Lymphocytes # Monocytes # Absolute Monocytes (Manual) 0.6 Eosinophils # Basophils # Nucleated Red Blood Cells # Platelet Estimate DECREASED Platelet Morphology Comment @See below Polychromasia 3+ Hypochromasia 1+ Anisocytosis 1+ Macrocytosis 1+ Sodium Level 148 H Potassium Level 4.3 Chloride Level 113 H Carbon Dioxide Level 25 Anion Gap 14 Blood Urea Nitrogen 48 H Creatinine 0.76 Glucose Level 57 #L Calcium Level 11.4 H Bedside Glucose 72 Medications Medications Current Medications Ondansetron HCl (Zofran Inj) 4 mg Q6H PRN IV NAUSEA AND/OR VOMITING Last administered on 02/05/17 09:36; Admin Dose 4 MG; Start 02/01/17 at 22:30 Acetaminophen (Tylenol Tab) 650 mg Q6H PRN PO PAIN LEVEL 1-3 OR FEVER Last administered on 02/19/17 04:25; Admin Dose 650 MG; Start 02/01/17 at 22:30 Acetaminophen/ Hydrocodone Bitart ([place] (5/325)) 1 tab Q6H PRN PO MODERATE PAIN LEVEL 4-6 Last administered on 02/04/17 21:07; Admin Dose 1 TAB; Start at 22:30 Hydromorphone HCl (Dilaudid) 0.5 mg Q4H PRN IV SEVERE PAIN LEVEL 7-10 Last administered on 02/18/17 11:28; Admin Dose 0.5 MG; Start 02/01/17 at 22:30 Docusate Sodium (Colace) 100 mg Q12H PRN PO CONSTIPATION; Start 02/01/17 at 22: 30 Magnesium Hydroxide (Milk Of Mag) 30 ml DAILY PRN PO CONSTIPATION; Start at 22:30 Bisacodyl (Dulcolax) 5 mg DAILY PRN PO CONSTIPATION; Start 02/01/17 at 22:30 Zolpidem Tartrate (Ambien) 5 mg QHS PRN PO SLEEP; Start 02/01/17 at 22:30 Lansoprazole (Prevacid) 30 mg DAILY@06 GTB Last administered on 02/18/17 05:48 ; Admin Dose 30 MG; Start 02/02/17 at 06:00 Enoxaparin Sodium (Lovenox) 40 mg DAILY SC Last administered on 02/18/17 08:48 ; Admin Dose 40 MG; Start 02/02/17 at 09:00 Ascorbic Acid (Vitamin C) 500 mg BID GTB Last administered on 02/18/17 20:54; Admin Dose 500 MG; Start 02/02/17 at 09:00 Diazepam (Valium) 5 mg DAILY PRN GTB ANXIETY Last administered on 02/08/17 20: 27; Admin Dose 5 MG; Start 02/01/17 at 22:30 Duloxetine HCl (Cymbalta) 20 mg DAILY GTB Last administered on 02/18/17 08:45; Admin Dose 20 MG; Start 02/02/17 at 09:00 Multivitamins Therapeutic (Theragran) 1 tab DAILY GTB Last administered on 08:45; Admin Dose 1 TAB; Start 02/02/17 at 09:00 Zinc Sulfate (Zinc Sulfate) 220 mg DAILY GTB Last administered on 02/18/17 08: 45; Admin Dose 220 MG; Start 02/02/17 at 09:00 Lactobacillus Acidophilus (Florajen3 Capsule) 1 each TID NGT Last administered on 02/18/17 20:54; Admin Dose 1 EACH; Start 02/02/17 at 09:00 Lactulose (Enulose) 20 gm BID PO Last administered on 02/18/17 20:54; Admin Dose 20 GM; Start 02/02/17 at 09:00 Collagenase (Santyl) 1 applic DAILY TOP Last administered on 02/17/17 09:41; Admin Dose 1 APPLIC; Start 02/02/17 at 09:00 Collagenase 1 applic 1 applic PRN PRN TOP PRN; Start 02/02/17 at 04:00 Linezolid 300 ml @ 300 mls/hr Q12 IVPB Last administered on 02/18/17 20:55; Admin Dose 300 MLS/HR; Start 02/09/17 at 15:00 Metronidazole 100 ml @ 100 mls/hr Q8 IVPB Last administered on 02/19/17 05:00 ; Admin Dose 100 MLS/HR; Start 02/09/17 at 14:00 Colistimethate Sodium/Sodium Chloride (Coly-Mycin/NS) 100 ml @ 200 mls/hr Q12H IVPB Last administered on 02/19/17 03:19; Admin Dose 200 MLS/HR; Start at 04:00 Sodium Hypochlorite (Dakin'S (1/4 Strength)) 1 applic DAILY IRR Last administered on 02/17/17 09:41; Admin Dose 1 APPLIC; Start 02/10/17 at 13:30 IV Flush (NS 10 ml) 10 ml PRN PRN IV FLUSH LINE; Start 02/10/17 at 15:30 Mupirocin (Bactroban) 1 applic BID TOP Last administered on 02/18/17 20:54; Admin Dose 1 APPLIC; Start 02/11/17 at 14:00 Dextrose 25 ml 25 ml IACHS PRN IV DECREASED GLUCOSE Last administered on 05:31; Admin Dose 25 ML; Start 02/13/17 at 08:30 Total Parenteral Nutrition (Tpn) 1,000 ml @ 60 mls/hr [id number] IV Last administered on 02/19/17 04:25; Admin Dose 60 MLS/HR; Start 02/13/17 at 16:00 Dextrose (D50w Syringe) 50 ml IV PRN IV DECREASED GLUCOSE Last administered on 02/13/17 18:07; Admin Dose 50 ML; Start 02/13/17 at 14:30 Fentanyl (Duragesic 25 Mcg/Hr Patch) 1 patch Q72H TRANSDERM Last administered on 02/17/17 16:06; Admin Dose 1 PATCH; Start 02/14/17 at 15:30 Diagnostic Test (Pha) (Accu-Chek) 1 ea Q6 XX Last administered on 02/19/17 05: 00; Admin Dose 1 EA; Start 02/14/17 at 18:00 IV Flush 10 ml 10 ml PRN PRN IV IV PROTOCOL; Start 02/15/17 at 21:30 Dextrose/Sodium Chloride (D5-NS) 1,000 ml @ 50 mls/hr Q20H IV Last administered on 02/18/17 23:53; Admin Dose 50 MLS/HR; Start 02/17/17 at 07:00 REGINE BUCKLEY Feb 19, 2017 10:09
--- NOTE | 2017-02-19 10:16 | PN ---
Date/Time of Note Date/Time of Note DATE: 02/19/17 TIME: 10:15 Assessment/Plan VTE Prophylaxis VTE Prophylaxis Intervention: other Lines/Catheters IV [facility]ter Type (from [facility]): PICC Line Central line still needed: Yes Urinary Cath still in place: Yes Reason Cath still needed: skin wounds contaminated by urine Assessment/Plan Chief Complaint/Hosp Course -Small bowel obstruction. Continue G-tube to low wall suctioning. Dr Gonzales is following in gastroenterology consultation. - sp CT Abdomen- result pending. fu -Sepsis, most likely secondary to urinary tract infection and possible postobstructive pneumonia. Dr. Coleman is following infection disease consultation, continue antibiotics per ID. -Hyponatremia, Dr. Zapata is following a nephrology consultation, continue IV fluids per renal. 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 -Ventilator dependent respiratory failure with tracheostomy, continue breathing treatments. 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 -Chronic urinary retention with George catheter -Chemical CODE STATUS Problems: Subjective 24 Hr Interval Summary Free Text/Dictation Patient is resting, trach in place Exam/Review of Systems Vital Signs Vitals Vital Signs Date Time Temp Pulse Resp B/P Pulse Ox O2 Delivery O2 Flow Rate FiO2 02/19/17 09:05 137 35 96 30 02/19/17 07:44 100.5 106/73 02/18/17 13:49 Mechanical Ventilator Intake and Output 02/18/17 02/18/17 02/19/17 15:00 23:00 07:00 Intake Total 1050 ml 1100 ml 1880 ml Output Total 1150 ml 300 ml 2000 ml Balance -100 ml 800 ml -120 ml Exam Constitutional: well developed Head: atraumatic, normocephalic Neck: supple Respiratory: diminished breath sounds Cardiovascular: regular rate and rhythm Gastrointestinal: non-tender, soft Extremities: normal pulses Results Result Diagram: 02/19/17 0611 02/19/17 0611 Results 24 hrs Laboratory Tests Test 02/18/17 11:23 02/18/17 17:21 02/19/17 00:49 02/19/17 04:56 Bedside Glucose 126 96 102 76 Test 02/19/17 06:11 02/19/17 08:16 White Blood Count 23.1 H Red Blood Count 3.23 L Hemoglobin 8.5 L Hematocrit 27.5 L Mean Corpuscular Volume 85.1 Mean Corpuscular Hemoglobin 26.3 L Mean Corpuscular Hemoglobin Concent 30.9 L Red Cell Distribution Width 18.5 H Platelet Count 87 #L Mean Platelet Volume 9.2 Neutrophils % Segmented Neutrophils % (Manual) 71 Band Neutrophils % (Manual) 5 H Lymphocytes % Lymphocytes % (Manual) 18 Monocytes % Monocytes % (Manual) 3 Eosinophils % Eosinophils % (Manual) 3 Basophils % Nucleated Red Blood Cells % 0.1 H Neutrophils # (Manual) 16.7 H Band Neutrophils # 1.1 H Absolute Lymphocytes (Manual) 4.1 H Lymphocytes # Monocytes # Absolute Monocytes (Manual) 0.6 Eosinophils # Basophils # Nucleated Red Blood Cells # Platelet Estimate DECREASED Platelet Morphology Comment @See below Polychromasia 3+ Hypochromasia 1+ Anisocytosis 1+ Macrocytosis 1+ Sodium Level 148 H Potassium Level 4.3 Chloride Level 113 H Carbon Dioxide Level 25 Anion Gap 14 Blood Urea Nitrogen 48 H Creatinine 0.76 Glucose Level 57 #L Calcium Level 11.4 H Bedside Glucose 72 Medications Medications Current Medications Ondansetron HCl (Zofran Inj) 4 mg Q6H PRN IV NAUSEA AND/OR VOMITING Last administered on 02/05/17 09:36; Admin Dose 4 MG; Start 02/01/17 at 22:30 Acetaminophen (Tylenol Tab) 650 mg Q6H PRN PO PAIN LEVEL 1-3 OR FEVER Last administered on 02/19/17 04:25; Admin Dose 650 MG; Start 02/01/17 at 22:30 Acetaminophen/ Hydrocodone Bitart ([place] (5/325)) 1 tab Q6H PRN PO MODERATE PAIN LEVEL 4-6 Last administered on 02/04/17 21:07; Admin Dose 1 TAB; Start at 22:30 Hydromorphone HCl (Dilaudid) 0.5 mg Q4H PRN IV SEVERE PAIN LEVEL 7-10 Last administered on 02/18/17 11:28; Admin Dose 0.5 MG; Start 02/01/17 at 22:30 Docusate Sodium (Colace) 100 mg Q12H PRN PO CONSTIPATION; Start 02/01/17 at 22: 30 Magnesium Hydroxide (Milk Of Mag) 30 ml DAILY PRN PO CONSTIPATION; Start at 22:30 Bisacodyl (Dulcolax) 5 mg DAILY PRN PO CONSTIPATION; Start 02/01/17 at 22:30 Zolpidem Tartrate (Ambien) 5 mg QHS PRN PO SLEEP; Start 02/01/17 at 22:30 Lansoprazole (Prevacid) 30 mg DAILY@06 GTB Last administered on 02/18/17 05:48 ; Admin Dose 30 MG; Start 02/02/17 at 06:00 Enoxaparin Sodium (Lovenox) 40 mg DAILY SC Last administered on 02/18/17 08:48 ; Admin Dose 40 MG; Start 02/02/17 at 09:00 Ascorbic Acid (Vitamin C) 500 mg BID GTB Last administered on 02/18/17 20:54; Admin Dose 500 MG; Start 02/02/17 at 09:00 Diazepam (Valium) 5 mg DAILY PRN GTB ANXIETY Last administered on 02/08/17 20: 27; Admin Dose 5 MG; Start 02/01/17 at 22:30 Duloxetine HCl (Cymbalta) 20 mg DAILY GTB Last administered on 02/18/17 08:45; Admin Dose 20 MG; Start 02/02/17 at 09:00 Multivitamins Therapeutic (Theragran) 1 tab DAILY GTB Last administered on 08:45; Admin Dose 1 TAB; Start 02/02/17 at 09:00 Zinc Sulfate (Zinc Sulfate) 220 mg DAILY GTB Last administered on 02/18/17 08: 45; Admin Dose 220 MG; Start 02/02/17 at 09:00 Lactobacillus Acidophilus (Florajen3 Capsule) 1 each TID NGT Last administered on 02/18/17 20:54; Admin Dose 1 EACH; Start 02/02/17 at 09:00 Lactulose (Enulose) 20 gm BID PO Last administered on 02/18/17 20:54; Admin Dose 20 GM; Start 02/02/17 at 09:00 Collagenase (Santyl) 1 applic DAILY TOP Last administered on 02/17/17 09:41; Admin Dose 1 APPLIC; Start 02/02/17 at 09:00 Collagenase 1 applic 1 applic PRN PRN TOP PRN; Start 02/02/17 at 04:00 Linezolid 300 ml @ 300 mls/hr Q12 IVPB Last administered on 02/18/17 20:55; Admin Dose 300 MLS/HR; Start 02/09/17 at 15:00 Metronidazole 100 ml @ 100 mls/hr Q8 IVPB Last administered on 02/19/17 05:00 ; Admin Dose 100 MLS/HR; Start 02/09/17 at 14:00 Colistimethate Sodium/Sodium Chloride (Coly-Mycin/NS) 100 ml @ 200 mls/hr Q12H IVPB Last administered on 02/19/17 03:19; Admin Dose 200 MLS/HR; Start at 04:00 Sodium Hypochlorite (Dakin'S (06/21 Strength)) 1 applic DAILY IRR Last administered on 02/17/17 09:41; Admin Dose 1 APPLIC; Start 02/10/17 at 13:30 IV Flush (NS 10 ml) 10 ml PRN PRN IV FLUSH LINE; Start 02/10/17 at 15:30 Mupirocin (Bactroban) 1 applic BID TOP Last administered on 02/18/17 20:54; Admin Dose 1 APPLIC; Start 02/11/17 at 14:00 Dextrose 25 ml 25 ml IACHS PRN IV DECREASED GLUCOSE Last administered on 05:31; Admin Dose 25 ML; Start 02/13/17 at 08:30 Total Parenteral Nutrition (Tpn) 1,000 ml @ 60 mls/hr [id number] IV Last administered on 02/19/17 04:25; Admin Dose 60 MLS/HR; Start 02/13/17 at 16:00 Dextrose (D50w Syringe) 50 ml IV PRN IV DECREASED GLUCOSE Last administered on 02/13/17 18:07; Admin Dose 50 ML; Start 02/13/17 at 14:30 Fentanyl (Duragesic 25 Mcg/Hr Patch) 1 patch Q72H TRANSDERM Last administered on 02/17/17 16:06; Admin Dose 1 PATCH; Start 02/14/17 at 15:30 Diagnostic Test (Pha) (Accu-Chek) 1 ea Q6 XX Last administered on 02/19/17 05: 00; Admin Dose 1 EA; Start 02/14/17 at 18:00 IV Flush 10 ml 10 ml PRN PRN IV IV PROTOCOL; Start 02/15/17 at 21:30 Dextrose/Sodium Chloride (D5-NS) 1,000 ml @ 50 mls/hr Q20H IV Last administered on 02/18/17t 23:53; Admin Dose 50 MLS/HR; Start 02/17/17 at 07:00 MICHAEL HOROWITZ Feb 19, 2017 10:16
[2017-02-19] MEDS: ENOXAPARIN 40 MG/0.4 ML SYG SC SCH (11:18)
[2017-02-19] MEDS: LINEZOLID 600 MG/D5W (PMX) 300 ML IVPB SCH ×2 (11:24→21:06)
--- NOTE | 2017-02-19 11:56 | CONS ---
Date/Time of Note Date/Time of Note DATE: 02/19/17 TIME: 11:52 Assessment/Plan Assessment/Plan Chief Complaint/Hosp Course ID PROGRESS NOTE ABX Day # => Zyvox #11 + Colistin IV #11 + Flagyl #11 s/p IV Bactrim/Cefepime s/p Vanco 24H INTERVAL SUMMARY * Awake, alert responsive w/intermittent confusion, currently calm * Vented -- remains on TPN for chronic ileus * Frail 66 yo F w/multiple recurrent septic issues, intermittent confusion -- no fevers (+)Low grade temps persistent * Chronic fluctuating leukocytosis = reactive + steroids on off = CXR 02/15 = LL mass unchanged * MICROBIOLOGY: * Urine (+) Acinetobacter baumannii. * Nares (+)MRSA. * Wound cx: (+)ACBA, MRSA, VRE, PSAR, Stenotrophomonas maltophilia, Proteus mirabilis. PHYSICAL EXAMINATION: GENERAL: Chronically ill-appearing, frail 66 yo F HEENT: Unremarkable except wearing eyeglasses, missing multiple teeth, (+)NGT secure NECK: Trach (+) secure to Vent CHEST: Rise symmetrical without dyspnea ABDOMEN: Soft EXTREMITIES: Moves all extremities, Without cyanosis. SKIN: See photos -- Hip + large decub sacral unstageable ID ASSESSMENT: 66 yo F w/PMHx Dementia, CVA(chronic left thalamic lacunar infarction), Tobacco/ COPD-Emphysema/Lung Cancer re-admit with: 1. s/p Sepsis on admission w/septic + hypovolemic shock, leukocytosis, low grade temps=> Multifactorial * Afebrile current * Hx of Chronic mild tachycardia - albuterol * Leukocytosis => Down today w/hx of chronic elevated WBC 2. Recurrent Complicated UTI, => due to urinary retention with chronic George = > Probable neurogenic bladder * Urine Cx: 02/01 (+)ACBA; 02/02 (+)ACBA 3. 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 Acute on chronic anemia 5. GERD, Dysphagia, hx GIB 6. Chronic respiratory failure w/Tracheostomy = Multifactorial * COPD: Tobaccoism * Aspiration Pneumonitis = 02/02 Sputum (+)PSAR, Stenotrophomonas Maltophilia, Proteus Mirabilis * Hx of PSAR HCAP w/PSAR Trach colonization * Hx of lung cancer w/lobe resection remote 7. 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 H/O DJD spine -> Hx of lumbar spinal fusion 9. Hx of recurrent C.Diff colitis 10. Chronic debility w/Cachexia 11. Chronic pain issues 12. Psych Dx NOS: Hx of Dementia w/intermittent agitative features 13. DECUBS: * Sacral decub: s/p debridement 01/11/17 ; 02/02 Wound cx: (+)ACBA, MRSA, VRE, PSAR, Stenotrophomonas maltophilia, Proteus mirabilis. * Hip Wound Cx 02/01: (+)MM, CRKP, MRSA, VRE (+) MRSA Nares ->Bactroban INVASIVES: PICC (02/10/17), FC, Peg, NGT ALLERGY: PENICILLIN. CURRENT ABX: Zyvox #11 + Colistin IV #11 + Flagyl #11 s/p IV Bactrim/Cefepime s/p Vanco ID PLAN * Poor prognosis for meaningful recovery, CHEM CODE only * Chronic recurrent multi-organ dysfunction/failure/lung cancer/cachexia/ recurrent sepsis requiring frequent courses of ABX * Continue current ABX; recurrent acute on chronic sepsis difficult to eradicate ; she is growing multiple ABX resistant organism . Problems: Consultation Date/Type/Reason Admit Date/Time Feb 01, 2017 at 15:50 Initial Consult Date 02/09/17 Type of Consultation: ID Referring Provider: DRE LOBATO MD Exam/Review of Systems Vital Signs Vitals Vital Signs Date Time Temp Pulse Resp B/P Pulse Ox O2 Delivery O2 Flow Rate FiO2 02/19/17 11:05 144 29 97 30 02/19/17 07:44 100.5 106/73 02/18/17 13:49 Mechanical Ventilator Intake and Output 02/18/17 02/18/17 02/19/17 15:00 23:00 07:00 Intake Total 1050 ml 1100 ml 1880 ml Output Total 1150 ml 300 ml 2000 ml Balance -100 ml 800 ml -120 ml Results Result Diagram: 02/19/17 0611 02/19/17 0611 Results 24 hrs Laboratory Tests Test 02/18/17 17:21 02/19/17 00:49 02/19/17 04:56 02/19/17 06:11 Bedside Glucose 96 102 76 White Blood Count 23.1 H Red Blood Count 3.23 L Hemoglobin 8.5 L Hematocrit 27.5 L Mean Corpuscular Volume 85.1 Mean Corpuscular Hemoglobin 26.3 L Mean Corpuscular Hemoglobin Concent 30.9 L Red Cell Distribution Width 18.5 H Platelet Count 87 #L Mean Platelet Volume 9.2 Neutrophils % Segmented Neutrophils % (Manual) 71 Band Neutrophils % (Manual) 5 H Lymphocytes % Lymphocytes % (Manual) 18 Monocytes % Monocytes % (Manual) 3 Eosinophils % Eosinophils % (Manual) 3 Basophils % Nucleated Red Blood Cells % 0.1 H Neutrophils # (Manual) 16.7 H Band Neutrophils # 1.1 H Absolute Lymphocytes (Manual) 4.1 H Lymphocytes # Monocytes # Absolute Monocytes (Manual) 0.6 Eosinophils # Basophils # Nucleated Red Blood Cells # Platelet Estimate DECREASED Platelet Morphology Comment @See below Polychromasia 3+ Hypochromasia 1+ Anisocytosis 1+ Macrocytosis 1+ Sodium Level 148 H Potassium Level 4.3 Chloride Level 113 H Carbon Dioxide Level 25 Anion Gap 14 Blood Urea Nitrogen 48 H Creatinine 0.76 Glucose Level 57 #L Calcium Level 11.4 H Test 02/19/17 08:16 Bedside Glucose 72 Medications Medications Current Medications Ondansetron HCl (Zofran Inj) 4 mg Q6H PRN IV NAUSEA AND/OR VOMITING Last administered on 02/05/17 09:36; Admin Dose 4 MG; Start 02/01/17 at 22:30 Acetaminophen (Tylenol Tab) 650 mg Q6H PRN PO PAIN LEVEL 1-3 OR FEVER Last administered on 02/19/17 04:25; Admin Dose 650 MG; Start 02/01/17 at 22:30 Acetaminophen/ Hydrocodone Bitart ([place] (5/325)) 1 tab Q6H PRN PO MODERATE PAIN LEVEL 4-6 Last administered on 02/04/17 21:07; Admin Dose 1 TAB; Start at 22:30 Hydromorphone HCl (Dilaudid) 0.5 mg Q4H PRN IV SEVERE PAIN LEVEL 7-10 Last administered on 02/18/17 11:28; Admin Dose 0.5 MG; Start 02/01/17 at 22:30 Docusate Sodium (Colace) 100 mg Q12H PRN PO CONSTIPATION; Start 02/01/17 at 22: 30 Magnesium Hydroxide (Milk Of Mag) 30 ml DAILY PRN PO CONSTIPATION; Start at 22:30 Bisacodyl (Dulcolax) 5 mg DAILY PRN PO CONSTIPATION; Start 02/01/17 at 22:30 Zolpidem Tartrate (Ambien) 5 mg QHS PRN PO SLEEP; Start 02/01/17 at 22:30 Lansoprazole (Prevacid) 30 mg DAILY@06 GTB Last administered on 02/18/17 05:48 ; Admin Dose 30 MG; Start 02/02/17 at 06:00 Enoxaparin Sodium (Lovenox) 40 mg DAILY SC Last administered on 02/19/17 11:18 ; Admin Dose 40 MG; Start 02/02/17 at 09:00 Ascorbic Acid (Vitamin C) 500 mg BID GTB Last administered on 02/18/17 20:54; Admin Dose 500 MG; Start 02/02/17 at 09:00 Diazepam (Valium) 5 mg DAILY PRN GTB ANXIETY Last administered on 02/08/17 20: 27; Admin Dose 5 MG; Start 02/01/17 at 22:30 Duloxetine HCl (Cymbalta) 20 mg DAILY GTB Last administered on 02/18/17 08:45; Admin Dose 20 MG; Start 02/02/17 at 09:00 Multivitamins Therapeutic (Theragran) 1 tab DAILY GTB Last administered on 08:45; Admin Dose 1 TAB; Start 02/02/17 at 09:00 Zinc Sulfate (Zinc Sulfate) 220 mg DAILY GTB Last administered on 02/18/17 08: 45; Admin Dose 220 MG; Start 02/02/17 at 09:00 Lactobacillus Acidophilus (Florajen3 Capsule) 1 each TID NGT Last administered on 02/18/17 20:54; Admin Dose 1 EACH; Start 02/02/17 at 09:00 Lactulose (Enulose) 20 gm BID PO Last administered on 02/18/17 20:54; Admin Dose 20 GM; Start 02/02/17 at 09:00 Collagenase (Santyl) 1 applic DAILY TOP Last administered on 02/17/17 09:41; Admin Dose 1 APPLIC; Start 02/02/17 at 09:00 Collagenase 1 applic 1 applic PRN PRN TOP PRN; Start 02/02/17 at 04:00 Linezolid 300 ml @ 300 mls/hr Q12 IVPB Last administered on 02/19/17 11:24; Admin Dose 300 MLS/HR; Start 02/09/17 at 15:00 Metronidazole 100 ml @ 100 mls/hr Q8 IVPB Last administered on 02/19/17 05:00 ; Admin Dose 100 MLS/HR; Start 02/09/17 at 14:00 Colistimethate Sodium/Sodium Chloride (Coly-Mycin/NS) 100 ml @ 200 mls/hr Q12H IVPB Last administered on 02/19/17 03:19; Admin Dose 200 MLS/HR; Start at 04:00 Sodium Hypochlorite (Dakin'S (1/4 Strength)) 1 applic DAILY IRR Last administered on 02/17/17 09:41; Admin Dose 1 APPLIC; Start 02/10/17 at 13:30 IV Flush (NS 10 ml) 10 ml PRN PRN IV FLUSH LINE; Start 02/10/17 at 15:30 Mupirocin (Bactroban) 1 applic BID TOP Last administered on 02/18/17 20:54; Admin Dose 1 APPLIC; Start 02/11/17 at 14:00 Dextrose 25 ml 25 ml IACHS PRN IV DECREASED GLUCOSE Last administered on 05:31; Admin Dose 25 ML; Start 02/13/17 at 08:30 Total Parenteral Nutrition (Tpn) 1,000 ml @ 60 mls/hr [id number] IV Last administered on 02/19/17 04:25; Admin Dose 60 MLS/HR; Start 02/13/17 at 16:00 Dextrose (D50w Syringe) 50 ml IV PRN IV DECREASED GLUCOSE Last administered on 02/13/17 18:07; Admin Dose 50 ML; Start 02/13/17 at 14:30 Fentanyl (Duragesic 25 Mcg/Hr Patch) 1 patch Q72H TRANSDERM Last administered on 02/17/17 16:06; Admin Dose 1 PATCH; Start 02/14/17 at 15:30 Diagnostic Test (Pha) (Accu-Chek) 1 ea Q6 XX Last administered on 02/19/17 05: 00; Admin Dose 1 EA; Start 02/14/17 at 18:00 IV Flush 10 ml 10 ml PRN PRN IV IV PROTOCOL; Start 02/15/17 at 21:30 Dextrose/Sodium Chloride (D5-NS) 1,000 ml @ 50 mls/hr Q20H IV Last administered on 02/18/17 23:53; Admin Dose 50 MLS/HR; Start 02/17/17 at 07:00 ALMA ROSARIO [employer] Feb 19, 2017 11:56
[2017-02-19] MEDS: COLLAGENASE 30 GM TUBE TOP SCH (13:00)
[2017-02-19] MEDS: SODIUM HYPOCHLORITE 0.125% 473 ML BTL IRR SCH (13:00)
--- NOTE | 2017-02-19 15:39 | PN ---
Date/Time of Note Date/Time of Note DATE: 02/19/17 TIME: 15:37 Assessment/Plan Lines/Catheters IV Catheter Type (from Nrs): PICC Line Story in Place (from Nrs): Yes Assessment/Plan Chief Complaint/Hosp Course 1. Multiple decubitus ulcers with debris, with likely osteo -Offload -Optimize nutrition -Vitamin C -Local care with dakins -Debridement sacrococcyx prn 2. 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 Abdominal distention: possible ileus (likely as per CT since contrast in colon & bowel function). -decompression -monitor -repeat sbft since gi wants to start feeds 4. Sepsis with tachycardia, hypotension and hypoglycemia: UTI +/- Bacteremia +/ - PNA + wounds. Off pressors. -supportive -abx per sensitivities -pulmonary toilet (titrating down) -optimize blood sugar 5. Acute on chronic diastolic heart failure -Judicious fluid management -Cardiac optimization 6. Hypoalbuminemia: inflammation/infection +/- malnutrition -as above -nutrition optimization 7. Depression. -Medical management 8. Hypothyroidism by history; TSH elevated -Synthroid adjustment per medicine 9. Normocytic anemia: chronic disease vs. acute bleed; no rogerio bleed noted: s/ p PRBC transfusion -monitor -transfuse as needed - per heme/onc 10. Chronic pain syndrome: patient with metastasis -continue pain management; consider non narcotic adjuncts 11. UTI: -abx per sensitivity/ID 12. Leukocytosis with bandemia: improved -as above 13. Chronic urinary retention with Story -perineal care -story care 14. Electrolyte imbalance: -optimize lytes Thank you, Problems: Subjective 24 Hr Interval Summary Awake. Abdominal bloating improved. Bowel function. Leukocytosis. Comfortable on vent. No fevers, chills, sob, congested cough, nausea, dysuria, excessive wound drainage, abdominal pain. Exam/Review of Systems Vital Signs Vitals Vital Signs Date Time Temp Pulse Resp B/P Pulse Ox O2 Delivery O2 Flow Rate FiO2 02/19/17 15:05 132 32 95 30 02/19/17 12:00 99.7 93/54 02/18/17 13:49 Mechanical Ventilator Intake and Output 02/18/17 02/18/17 02/19/17 15:00 23:00 07:00 Intake Total 1050 ml 1100 ml 1880 ml Output Total 1150 ml 300 ml 2000 ml Balance -100 ml 800 ml -120 ml Exam Free Text/Dictation Constitutional: awake, No distress Psych: anxious Head: atraumatic, normocephalic Eyes: nl conjunctiva, nl lids, nl sclera ENMT: mucosa pink and dry, nl external ears & nose, nl lips & teeth; ng tube Neck: non-tender, other (tracheostomy, non-reddened, no drainage noted), supple Respiratory: normal effort, no wheezing, min thin sputum Cardiovascular: nl pulses, regular rate and rhythm Gastrointestinal: non-tender, other (gtube, site non-tender, non-reddened), distention improved; hypoactive bowel sounds Musculoskeletal: nl extremities to inspection Extremities: normal pulses, extremity Edema +2 Neurological: nl mental status, No nl strength (gen weakness) Skin: No rash; wounds (sacral wound pink wound bed min slough with min/mod drainage) Results Result Diagram: 02/19/17 0611 02/19/17 0611 ZAK POSEY MD Feb 19, 2017 15:39
--- NOTE | 2017-02-19 16:01 | CONS ---
Date/Time of Note Date/Time of Note DATE: 02/19/17 TIME: 15:59 Assessment/Plan Assessment/Plan Additional Assessment/Plan 1. 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 septic shock - sp Levophed 3. Recurrent Multidrug Resistant Urinary tract infection 4. Sacral wound 5. Chronic resp failure 6.S/P Tracheostomy, S/p PEG tube placement 7. Lung CA- Squamous Cell CA 8. Hypercalcemia due to squamous cell CA of lung 9.Hypokalemia-resolved Plan: -Continue current IV abx Colimycin and zyvox , ID following, renally dos abx -S/p 3 % saline on02/09/17- s/p tolvaptan 15 mg [id number] x 1 dose on 02/13/17- Na improved to 138 on 02/16/17 then again trended upto 148 today - Ca came down to 11.4- s/p One dose of pamidronate 30mg IV x 1 on 02/15/17 - renal function has been normal -will follow up -Dw Dr Celeste Sauceda Consultation Date/Type/Reason Admit Date/Time Feb 01, 2017 at 15:50 Initial Consult Date 02/08/17 Type of Consultation: Nephrology Referring Provider: DRE LOBATO MD Exam/Review of Systems Vital Signs Vitals Vital Signs Date Time Temp Pulse Resp B/P Pulse Ox O2 Delivery O2 Flow Rate FiO2 02/19/17 15:05 132 32 95 30 02/19/17 12:00 99.7 93/54 02/18/17 13:49 Mechanical Ventilator Intake and Output 02/18/17 02/18/17 02/19/17 15:00 23:00 07:00 Intake Total 1050 ml 1100 ml 1880 ml Output Total 1150 ml 300 ml 2000 ml Balance -100 ml 800 ml -120 ml Results Result Diagram: 02/19/17 0611 02/19/17 0611 Results 24 hrs Laboratory Tests Test 02/18/17 17:21 02/19/17 00:49 02/19/17 04:56 02/19/17 06:11 Bedside Glucose 96 102 76 White Blood Count 23.1 H Red Blood Count 3.23 L Hemoglobin 8.5 L Hematocrit 27.5 L Mean Corpuscular Volume 85.1 Mean Corpuscular Hemoglobin 26.3 L Mean Corpuscular Hemoglobin Concent 30.9 L Red Cell Distribution Width 18.5 H Platelet Count 87 #L Mean Platelet Volume 9.2 Neutrophils % Segmented Neutrophils % (Manual) 71 Band Neutrophils % (Manual) 5 H Lymphocytes % Lymphocytes % (Manual) 18 Monocytes % Monocytes % (Manual) 3 Eosinophils % Eosinophils % (Manual) 3 Basophils % Nucleated Red Blood Cells % 0.1 H Neutrophils # (Manual) 16.7 H Band Neutrophils # 1.1 H Absolute Lymphocytes (Manual) 4.1 H Lymphocytes # Monocytes # Absolute Monocytes (Manual) 0.6 Eosinophils # Basophils # Nucleated Red Blood Cells # Platelet Estimate DECREASED Platelet Morphology Comment @See below Polychromasia 3+ Hypochromasia 1+ Anisocytosis 1+ Macrocytosis 1+ Sodium Level 148 H Potassium Level 4.3 Chloride Level 113 H Carbon Dioxide Level 25 Anion Gap 14 Blood Urea Nitrogen 48 H Creatinine 0.76 Glucose Level 57 #L Calcium Level 11.4 H Test 02/19/17 08:16 02/19/17 13:43 Bedside Glucose 72 74 Medications Medications Current Medications Ondansetron HCl (Zofran Inj) 4 mg Q6H PRN IV NAUSEA AND/OR VOMITING Last administered on 02/05/17 09:36; Admin Dose 4 MG; Start 02/01/17 at 22:30 Acetaminophen (Tylenol Tab) 650 mg Q6H PRN PO PAIN LEVEL 1-3 OR FEVER Last administered on 02/19/17 04:25; Admin Dose 650 MG; Start 02/01/17 at 22:30 Acetaminophen/ Hydrocodone Bitart ([place] (5/325)) 1 tab Q6H PRN PO MODERATE PAIN LEVEL 4-6 Last administered on 02/04/17 21:07; Admin Dose 1 TAB; Start at 22:30 Hydromorphone HCl (Dilaudid) 0.5 mg Q4H PRN IV SEVERE PAIN LEVEL 7-10 Last administered on 02/18/17 11:28; Admin Dose 0.5 MG; Start 02/01/17 at 22:30 Docusate Sodium (Colace) 100 mg Q12H PRN PO CONSTIPATION; Start 02/01/17 at 22: 30 Magnesium Hydroxide (Milk Of Mag) 30 ml DAILY PRN PO CONSTIPATION; Start at 22:30 Bisacodyl (Dulcolax) 5 mg DAILY PRN PO CONSTIPATION; Start 02/01/17 at 22:30 Zolpidem Tartrate (Ambien) 5 mg QHS PRN PO SLEEP; Start 02/01/17 at 22:30 Lansoprazole (Prevacid) 30 mg DAILY@06 GTB Last administered on 02/18/17 05:48 ; Admin Dose 30 MG; Start 02/02/17 at 06:00 Enoxaparin Sodium (Lovenox) 40 mg DAILY SC Last administered on 02/19/17 11:18 ; Admin Dose 40 MG; Start 02/02/17 at 09:00 Ascorbic Acid (Vitamin C) 500 mg BID GTB Last administered on 02/18/17 20:54; Admin Dose 500 MG; Start 02/02/17 at 09:00 Diazepam (Valium) 5 mg DAILY PRN GTB ANXIETY Last administered on 02/08/17 20: 27; Admin Dose 5 MG; Start 02/01/17 at 22:30 Duloxetine HCl (Cymbalta) 20 mg DAILY GTB Last administered on 02/18/17 08:45; Admin Dose 20 MG; Start 02/02/17 at 09:00 Multivitamins Therapeutic (Theragran) 1 tab DAILY GTB Last administered on 08:45; Admin Dose 1 TAB; Start 02/02/17 at 09:00 Zinc Sulfate (Zinc Sulfate) 220 mg DAILY GTB Last administered on 02/18/17 08: 45; Admin Dose 220 MG; Start 02/02/17 at 09:00 Lactobacillus Acidophilus (Florajen3 Capsule) 1 each TID NGT Last administered on 02/18/17 20:54; Admin Dose 1 EACH; Start 02/02/17 at 09:00 Lactulose (Enulose) 20 gm BID PO Last administered on 02/18/17 20:54; Admin Dose 20 GM; Start 02/02/17 at 09:00 Collagenase (Santyl) 1 applic DAILY TOP Last administered on 02/19/17 13:00; Admin Dose 1 APPLIC; Start 02/02/17 at 09:00 Collagenase 1 applic 1 applic PRN PRN TOP PRN; Start 02/02/17 at 04:00 Linezolid 300 ml @ 300 mls/hr Q12 IVPB Last administered on 02/19/17 11:24; Admin Dose 300 MLS/HR; Start 02/09/17 at 15:00 Metronidazole 100 ml @ 100 mls/hr Q8 IVPB Last administered on 02/19/17 15:09 ; Admin Dose 100 MLS/HR; Start 02/09/17 at 14:00 Colistimethate Sodium/Sodium Chloride (Coly-Mycin/NS) 100 ml @ 200 mls/hr Q12H IVPB Last administered on 02/19/17 03:19; Admin Dose 200 MLS/HR; Start at 04:00 Sodium Hypochlorite (Dakin'S (06/21 Strength)) 1 applic DAILY IRR Last administered on 02/19/17 13:00; Admin Dose 1 APPLIC; Start 02/10/17 at 13:30 IV Flush (NS 10 ml) 10 ml PRN PRN IV FLUSH LINE; Start 02/10/17 at 15:30 Mupirocin (Bactroban) 1 applic BID TOP Last administered on 02/19/17 09:00; Admin Dose 1 APPLIC; Start 02/11/17 at 14:00 Dextrose 25 ml 25 ml IACHS PRN IV DECREASED GLUCOSE Last administered on 05:31; Admin Dose 25 ML; Start 02/13/17 at 08:30 Total Parenteral Nutrition (Tpn) 1,000 ml @ 60 mls/hr [id number] IV Last administered on 02/19/17 15:04; Admin Dose 60 MLS/HR; Start 02/13/17 at 16:00 Dextrose (D50w Syringe) 50 ml IV PRN IV DECREASED GLUCOSE Last administered on 02/13/17 18:07; Admin Dose 50 ML; Start 02/13/17 at 14:30 Fentanyl (Duragesic 25 Mcg/Hr Patch) 1 patch Q72H TRANSDERM Last administered on 02/17/17 16:06; Admin Dose 1 PATCH; Start 02/14/17 at 15:30 Diagnostic Test (Pha) (Accu-Chek) 1 ea Q6 XX Last administered on 02/19/17 12: 00; Admin Dose 1 EA; Start 02/14/17 at 18:00 IV Flush 10 ml 10 ml PRN PRN IV IV PROTOCOL; Start 02/15/17 at 21:30 Dextrose/Sodium Chloride (D5-NS) 1,000 ml @ 50 mls/hr Q20H IV Last administered on 02/18/17t 23:53; Admin Dose 50 MLS/HR; Start 02/17/17 at 07:00 DIONNE SAUCEDA MD Feb 19, 2017 16:01
--- NOTE | 2017-02-19 16:22 | CONS ---
Date/Time of Note Date/Time of Note DATE: 02/19/17 TIME: 16:20 Assessment/Plan Assessment/Plan Chief Complaint/Hosp Course -Anemia, POST PRBC transfuse packed red blood cells as needed continue to monitor H&H. COMPLEX, MULTIFACTORIAL -Left lung squamous carcinoma, NOW WITH POS LIVER METS supportive care no aggressive treatment planned HYPERCALCEMIA POST AREDIA CA-IMPROVED - SBO NOW ON CONSERVATIVE MANAGEMENT -Sepsis, most likely secondary to urinary tract infection and possible postobstructive pneumonia. Dr. Coleman is following infection disease consultation, follow-up on cultures, continue antibiotics per ID. -Hyponatremia, nephrology f-up, continue IV fluids per renal. -Ventilator dependent respiratory failure with tracheostomy, continue breathing treatments. -COPD -Dysphagia with PEG -History of cardiopulmonary arrest -Multiple wounds present on admission, that is post debridement at last admission. -Hypothyroidism -Chronic urinary retention with George catheter PROGNOSIS- POOR Problems: Consultation Date/Type/Reason Admit Date/Time Feb 01, 2017 at 15:50 Initial Consult Date 02/08/17 Type of Consultation: HEMEON Referring Provider: DRE LOBATO MD 24 HR Interval Summary Free Text/Dictation ALL NOTED ON TELE PLATELET COUNT DOWN NO BLEEDING Exam/Review of Systems Vital Signs Vitals Vital Signs Date Time Temp Pulse Resp B/P Pulse Ox O2 Delivery O2 Flow Rate FiO2 02/19/17 16:11 100.2 140 17 108/63 95 02/19/17 15:05 30 02/18/17 13:49 Mechanical Ventilator Intake and Output 02/18/17 02/18/17 02/19/17 14:59 22:59 06:59 Intake Total 1370 ml 1100 ml 1880 ml Output Total 1350 ml 300 ml 2000 ml Balance 20 ml 800 ml -120 ml Exam GENERAL: This is a well-developed, ill-appearing man, who is awake, in no distress. HEENT: Head atraumatic, normocephalic. Sclerae anicteric. Buccal mucosa pink and dry. NECK: Supple. CHEST: Rise symmetrical. Breath sounds diminished at the bases. HEART: S1, S2. ABDOMEN: Soft, bowel sounds present. EXTREMITIES: Without cyanosis. + WOUNDS Results Result Diagram: 02/19/17 0611 02/19/17 0611 Results 24 hrs Laboratory Tests Test 02/18/17 17:21 02/19/17 00:49 9/4/17 04:56 02/19/17 06:11 Bedside Glucose 96 102 76 White Blood Count 23.1 H Red Blood Count 3.23 L Hemoglobin 8.5 L Hematocrit 27.5 L Mean Corpuscular Volume 85.1 Mean Corpuscular Hemoglobin 26.3 L Mean Corpuscular Hemoglobin Concent 30.9 L Red Cell Distribution Width 18.5 H Platelet Count 87 #L Mean Platelet Volume 9.2 Neutrophils % Segmented Neutrophils % (Manual) 71 Band Neutrophils % (Manual) 5 H Lymphocytes % Lymphocytes % (Manual) 18 Monocytes % Monocytes % (Manual) 3 Eosinophils % Eosinophils % (Manual) 3 Basophils % Nucleated Red Blood Cells % 0.1 H Neutrophils # (Manual) 16.7 H Band Neutrophils # 1.1 H Absolute Lymphocytes (Manual) 4.1 H Lymphocytes # Monocytes # Absolute Monocytes (Manual) 0.6 Eosinophils # Basophils # Nucleated Red Blood Cells # Platelet Estimate DECREASED Platelet Morphology Comment @See below Polychromasia 3+ Hypochromasia 1+ Anisocytosis 1+ Macrocytosis 1+ Sodium Level 148 H Potassium Level 4.3 Chloride Level 113 H Carbon Dioxide Level 25 Anion Gap 14 Blood Urea Nitrogen 48 H Creatinine 0.76 Glucose Level 57 #L Calcium Level 11.4 H Test 02/19/17 08:16 02/19/17 13:43 Bedside Glucose 72 74 Medications Medications Current Medications Ondansetron HCl (Zofran Inj) 4 mg Q6H PRN IV NAUSEA AND/OR VOMITING Last administered on 02/05/17 09:36; Admin Dose 4 MG; Start 02/01/17 at 22:30 Acetaminophen (Tylenol Tab) 650 mg Q6H PRN PO PAIN LEVEL 1-3 OR FEVER Last administered on 02/19/17 04:25; Admin Dose 650 MG; Start 02/01/17 at 22:30 Acetaminophen/ Hydrocodone Bitart ([place] (5/325)) 1 tab Q6H PRN PO MODERATE PAIN LEVEL 4-6 Last administered on 02/04/17 21:07; Admin Dose 1 TAB; Start at 22:30 Hydromorphone HCl (Dilaudid) 0.5 mg Q4H PRN IV SEVERE PAIN LEVEL 7-10 Last administered on 02/18/17 11:28; Admin Dose 0.5 MG; Start 02/01/17 at 22:30 Docusate Sodium (Colace) 100 mg Q12H PRN PO CONSTIPATION; Start 02/01/17 at 22: 30 Magnesium Hydroxide (Milk Of Mag) 30 ml DAILY PRN PO CONSTIPATION; Start at 22:30 Bisacodyl (Dulcolax) 5 mg DAILY PRN PO CONSTIPATION; Start 02/01/17 at 22:30 Zolpidem Tartrate (Ambien) 5 mg QHS PRN PO SLEEP; Start 02/01/17 at 22:30 Lansoprazole (Prevacid) 30 mg DAILY@06 GTB Last administered on 02/18/17 05:48 ; Admin Dose 30 MG; Start 02/02/17 at 06:00 Enoxaparin Sodium (Lovenox) 40 mg DAILY SC Last administered on 02/19/17 11:18 ; Admin Dose 40 MG; Start 02/02/17 at 09:00 Ascorbic Acid (Vitamin C) 500 mg BID GTB Last administered on 02/18/17 20:54; Admin Dose 500 MG; Start 02/02/17 at 09:00 Diazepam (Valium) 5 mg DAILY PRN GTB ANXIETY Last administered on 02/08/17 20: 27; Admin Dose 5 MG; Start 02/01/17 at 22:30 Duloxetine HCl (Cymbalta) 20 mg DAILY GTB Last administered on 02/18/17 08:45; Admin Dose 20 MG; Start 02/02/17 at 09:00 Multivitamins Therapeutic (Theragran) 1 tab DAILY GTB Last administered on 08:45; Admin Dose 1 TAB; Start 02/02/17 at 09:00 Zinc Sulfate (Zinc Sulfate) 220 mg DAILY GTB Last administered on 02/18/17 08: 45; Admin Dose 220 MG; Start 02/02/17 at 09:00 Lactobacillus Acidophilus (Florajen3 Capsule) 1 each TID NGT Last administered on 02/18/17 20:54; Admin Dose 1 EACH; Start 02/02/17 at 09:00 Lactulose (Enulose) 20 gm BID PO Last administered on 02/18/17 20:54; Admin Dose 20 GM; Start 02/02/17 at 09:00 Collagenase (Santyl) 1 applic DAILY TOP Last administered on 02/19/17 13:00; Admin Dose 1 APPLIC; Start 02/02/17 at 09:00 Collagenase 1 applic 1 applic PRN PRN TOP PRN; Start 02/02/17 at 04:00 Linezolid 300 ml @ 300 mls/hr Q12 IVPB Last administered on 02/19/17 11:24; Admin Dose 300 MLS/HR; Start 02/09/17 at 15:00 Metronidazole 100 ml @ 100 mls/hr Q8 IVPB Last administered on 02/19/17 15:09 ; Admin Dose 100 MLS/HR; Start 02/09/17 at 14:00 Colistimethate Sodium/Sodium Chloride (Coly-Mycin/NS) 100 ml @ 200 mls/hr Q12H IVPB Last administered on 02/19/17 16:18; Admin Dose 200 MLS/HR; Start at 04:00 Sodium Hypochlorite (Dakin'S (1/4 Strength)) 1 applic DAILY IRR Last administered on 02/19/17 13:00; Admin Dose 1 APPLIC; Start 02/10/17 at 13:30 IV Flush (NS 10 ml) 10 ml PRN PRN IV FLUSH LINE; Start 02/10/17 at 15:30 Mupirocin (Bactroban) 1 applic BID TOP Last administered on 02/19/17 09:00; Admin Dose 1 APPLIC; Start 02/11/17 at 14:00 Dextrose 25 ml 25 ml IACHS PRN IV DECREASED GLUCOSE Last administered on 05:31; Admin Dose 25 ML; Start 02/13/17 at 08:30 Total Parenteral Nutrition (Tpn) 1,000 ml @ 60 mls/hr [id number] IV Last administered on 02/19/17 15:04; Admin Dose 60 MLS/HR; Start 02/13/17 at 16:00 Dextrose (D50w Syringe) 50 ml IV PRN IV DECREASED GLUCOSE Last administered on 02/13/17 18:07; Admin Dose 50 ML; Start 02/13/17 at 14:30 Fentanyl (Duragesic 25 Mcg/Hr Patch) 1 patch Q72H TRANSDERM Last administered on 02/17/17 16:06; Admin Dose 1 PATCH; Start 02/14/17 at 15:30 Diagnostic Test (Pha) (Accu-Chek) 1 ea Q6 XX Last administered on 02/19/17 12: 00; Admin Dose 1 EA; Start 02/14/17 at 18:00 IV Flush 10 ml 10 ml PRN PRN IV IV PROTOCOL; Start 02/15/17 at 21:30 Dextrose/Sodium Chloride (D5-NS) 1,000 ml @ 50 mls/hr Q20H IV Last administered on 02/18/17 23:53; Admin Dose 50 MLS/HR; Start 02/17/17 at 07:00 DYLLAN CARRION MD Feb 19, 2017 16:22
--- NOTE | 2017-02-19 16:36 | PN ---
DATE: 02/19/2017 SUBJECTIVE DATA: The patient at this time is on the floor. The nurse asked me to see regarding the tube feeding. The patient has a small bowel obstruction. The patient also seen by Dr. Sinclair, who recommended conservative management because the patient happens to be high risk for any kind of surgery. OBJECTIVE DATA: GENERAL: Patient is alert, he is afebrile. ABDOMEN: Slightly distended, is soft. LABORATORY AND DIAGNOSTIC DATA: WBC count 23,100, hemoglobin 8.5. The potassium is 4.3, alk phos is 431. CLINICAL IMPRESSION: The patient seems to have a partial small bowel obstruction. However, since he is a high risk candidate, the surgery is kept on hold by the surgeon and at this time I would recommend to consult with the surgeon regarding feeding. Dictated By: Malik Gonzales MD /[email or web address] /Document#: [id number] CC: Bashir Dozier MD;*End*
[2017-02-19] MEDS: DEXTROSE 5%-0.9% NACL 1,000 ML IV SCH (19:00)
[2017-02-19] MEDS: DEXTROSE 50% 50 ML SYRINGE IV PRN (19:12)
[2017-02-19] MEDS ORDERED: SOD CHLORIDE 0.9% 500 ML IV ONE (20:00)
[2017-02-19] MEDS ORDERED: NORepinephrine 8MG/250 ML (PMX 250 ML ONE (22:08)
[2017-02-19] MEDS ORDERED: NORepinephrine 8MG/250 ML (PMX 250 ML IV SCH (22:30)
[2017-02-19] MEDS ORDERED: ACETAMINOPHEN 1000MG/100ML IV 100 ML IVPB ONE (23:30)
[2017-02-20] VITALS (104 sets, daily range): BP systolic 70–141; BP diastolic 44–94; PULSE 101–152; RESP 17–41
[2017-02-20] MEDS: DEXTROSE 50% 50 ML SYRINGE IV PRN ×3 (00:09→10:01)
[2017-02-20] MEDS: IPRATROPIUM (HFA) 12.9 GM INHALER INH SCH ×4 (02:42→19:48)
[2017-02-20] MEDS: ALBUTEROL 18 GM INHALER INH SCH ×4 (02:43→19:48)
[2017-02-20] MEDS: COLISTIMETHATE 100 MG in SOD CHLORIDE 0.9% 100 ML IVPB SCH ×2 (04:00→16:56)
[2017-02-20] MEDS: LANSOPRAZOLE 30 MG CAP GTB SCH (05:45)
[2017-02-20] MEDS: metroNIDAZOLE 500 MG/NS (PMX) 100 ML IVPB SCH ×3 (05:54→22:50)
[2017-02-20] MEDS: ACCU-CHEK XX SCH ×6 (06:00→21:00)
--- NOTE | 2017-02-20 06:06 | PN ---
DATE: SUBJECTIVE DATA: No acute changes. The patient is awake, looks comfortable. She is hypothermic and on blanket warmer. No fevers overnight. VITAL SIGNS: Temperature 97, pulse 105, respirations 22, blood pressure 134/92, saturation 98 on 30 FiO2. LABORATORY AND DIAGNOSTIC DATA: WBC 20.2, H and H 8.2 and 26.2, platelets 292, bands 16, lymphs 4, BUN 51, creatinine 0.80. INDWELLINGS: Trach, PEG, George, PICC line placed on February 10, NG tube. DIAGNOSTICS: CT of the abdomen and pelvis revealed decreased fluid filled distention of the small bowel with mild residual dilute contrast present. Diffuse mesenteric edema. Partially visualized mass of the left lung base. Supple hepatic hypodense lesions are also present and unchanged. ANTIMICROBIALS: 1. Colistin IV. 2. Zyvox. 3. Flagyl. PHYSICAL EXAMINATION: GENERAL: This is a chronically ill-appearing, elderly cachectic woman who is awake, in no distress. HEENT: Head atraumatic, normocephalic. Sclerae anicteric. Buccal mucosa dry. NECK: Supple. Tracheostomy present. CHEST: Rise symmetrical. Breath sounds diminished at the bases. HEART: S1, S2. Tachycardic, regular. ABDOMEN: Distended. Bowel sounds are very hypoactive. EXTREMITIES: With trace edema. ASSESSMENT: 1. Sepsis status post septic shock. 2. Ileus, questionable small-bowel obstruction, CT of the abdomen and pelvis. With some improvement. 3. Acute on chronic respiratory failure. Possible obstructive pneumonia. 4. Multidrug resistant urinary tract infection. 5. Unstageable sacral wound with probable osteomyelitis as evidenced per CT of the abdomen and pelvis. 6. Chief Methicillins sensitive staphylococcus aureus nares colonization. 7. Cachexia. 8. History of Clostridium difficile colitis. 9. Anemia and ascites. PLAN: The patient remains hemodynamically stable. She is on appropriate antimicrobials. She is being seen by multiple consultants. She is a chemical code only. We will continue her on current regimen. Dictated By: Johnny Chapa NP /[email or web address] /Document#: [id number]
[2017-02-20 06:07] LABS: CALCIUM 10.8 mg/dl (8.4-10.2); MAGNESIUM 1.7 mg/dl (1.7-2.5); PHOSPHORUS 2.8 mg/dl (2.5-4.9); POTASSIUM 3.9 mmol/L (3.5-5.1)
[2017-02-20] MEDS: DEXTROSE 5%-0.9% NACL 1,000 ML IV SCH (06:29)
[2017-02-20] MEDS: DULOXETINE 20 MG CAP DR GTB SCH (09:00)
[2017-02-20] MEDS: ZINC SULFATE 220 MG CAP GTB SCH (09:00)
[2017-02-20] MEDS: COLLAGENASE 30 GM TUBE TOP SCH (09:00)
[2017-02-20] MEDS: LACTULOSE 30ML CUP PO SCH ×2 (09:00→21:00)
[2017-02-20] MEDS: MULTIVITAMINS THERAPEUTIC TAB GTB SCH (09:00)
[2017-02-20] MEDS: ASCORBIC ACID 500 MG TAB GTB SCH ×2 (09:00→21:00)
[2017-02-20] MEDS: L ACIDOPHIL/B LACTIS/B LONGUM CAPSULE NGT SCH ×3 (09:00→21:00)
[2017-02-20] MEDS: DEXTROSE 10% 1,000 ML IV SCH (09:24)
[2017-02-20] MEDS: SODIUM HYPOCHLORITE 0.125% 473 ML BTL IRR SCH (09:30)
[2017-02-20] MEDS ORDERED: IOHEXOL 300MG/ML 150 ML BTL ONE (09:51)
--- NOTE | 2017-02-20 10:54 | CONS ---
Date/Time of Note Date/Time of Note DATE: 02/20/17 TIME: 10:51 Assessment/Plan Assessment/Plan Additional Assessment/Plan Ventilator setting; AC of 14, tidal volume 450, PEEP of 5, 30% FiO2. Patient currently on Levophed at 5 mics per minute. Assessment and recommendations; 1. Patient admitted with severe sepsis from sacral decubitus wounds. 2. Hypotension, requiring pressor support. 3. Chronic respiratory failure. 4. Severe generalized deconditioning. 5. Likely left lower lobe lung malignancy, patient has been too unstable to go any kind of workup. 6. Anemia and thrombus cytopenia. 7. Ileus. Continue current supportive care. Prognosis remains poor on account of multiple comorbidities. Consultation Date/Type/Reason Admit Date/Time Feb 01, 2017 at 15:50 Initial Consult Date 02/09/17 Type of Consultation: Pulmonary/critical care Referring Provider: DRE LOBATO MD 24 HR Interval Summary Free Text/Dictation Patient condition remains critical. Had to be transferred to ICU because of hypotension. Currently on Levophed drip at 5 mics per minute. General exam; elderly woman, on ventilator via tracheostomy, currently in no distress. Awake. Exam/Review of Systems Vital Signs Vitals Vital Signs Date Time Temp Pulse Resp B/P Pulse Ox O2 Delivery O2 Flow Rate FiO2 02/20/17 08:00 140 02/20/17 07:45 34 101/66 100 Mechanical Ventilator 02/20/17 05:00 30 02/20/17 04:00 99.5 Intake and Output 02/19/17 02/19/17 02/20/17 15:00 23:00 07:00 Intake Total 300 ml 963.125 ml 1039.375 ml Output Total 2550 ml 1800 ml Balance 300 ml -1586.875 ml -760.625 ml Exam HEENT exam; supple neck, no JVD. No lymphadenopathy. Midline trachea. No thyromegaly. The colostomy in place. Patient has a multiple carious teeth. Chest exam; diminished breath sounds bilaterally. S1-S2 audible, no murmurs. Regular rhythm. Abdomen exam; soft, G-tube in place. Bowel sounds are absent. Abdomen is mildly distended. Extremity exam; no peripheral edema. Back examination; dressing applied over sacrum. [employer] exam; he is awake and follows simple commands. Results Result Diagram: 02/19/17 0611 02/20/17 0430 Results 24 hrs Laboratory Tests Test 02/19/17 13:43 02/19/17 19:01 02/19/17 19:36 02/19/17 19:50 Bedside Glucose 74 60 L 91 84 Test 02/20/17 00:06 02/20/17 00:30 02/20/17 04:30 02/20/17 05:56 Bedside Glucose 56 L 88 53 L Sodium Level 152 H Potassium Level 3.9 Chloride Level 117 H Carbon Dioxide Level 23 Anion Gap 16 Blood Urea Nitrogen 46 H Creatinine 1.00 Glucose Level 44 #*L Calcium Level 10.8 H Phosphorus Level 2.8 Magnesium Level 1.7 Test 02/20/17 06:15 02/20/17 09:40 02/20/17 10:27 02/20/17 10:47 Bedside Glucose 92 59 L 106 83 Medications Medications Current Medications Ondansetron HCl (Zofran Inj) 4 mg Q6H PRN IV NAUSEA AND/OR VOMITING Last administered on 02/05/17 09:36; Admin Dose 4 MG; Start 02/01/17 at 22:30 Acetaminophen (Tylenol Tab) 650 mg Q6H PRN PO PAIN LEVEL 1-3 OR FEVER Last administered on 02/19/17 04:25; Admin Dose 650 MG; Start 02/01/17 at 22:30 Acetaminophen/ Hydrocodone Bitart (Kiron (5/325)) 1 tab Q6H PRN PO MODERATE PAIN LEVEL 4-6 Last administered on 02/04/17 21:07; Admin Dose 1 TAB; Start at 22:30 Hydromorphone HCl (Dilaudid) 0.5 mg Q4H PRN IV SEVERE PAIN LEVEL 7-10 Last administered on 02/18/17 11:28; Admin Dose 0.5 MG; Start 02/01/17 at 22:30 Docusate Sodium (Colace) 100 mg Q12H PRN PO CONSTIPATION; Start 02/01/17 at 22: 30 Magnesium Hydroxide (Milk Of Mag) 30 ml DAILY PRN PO CONSTIPATION; Start at 22:30 Bisacodyl (Dulcolax) 5 mg DAILY PRN PO CONSTIPATION; Start 02/01/17 at 22:30 Zolpidem Tartrate (Ambien) 5 mg QHS PRN PO SLEEP; Start 02/01/17 at 22:30 Lansoprazole (Prevacid) 30 mg DAILY@06 GTB Last administered on 02/18/17 05:48 ; Admin Dose 30 MG; Start 02/02/17 at 06:00 Enoxaparin Sodium (Lovenox) 40 mg DAILY SC Last administered on 02/19/17 11:18 ; Admin Dose 40 MG; Start 02/02/17 at 09:00 Ascorbic Acid (Vitamin C) 500 mg BID GTB Last administered on 02/18/17 20:54; Admin Dose 500 MG; Start 02/02/17 at 09:00 Diazepam (Valium) 5 mg DAILY PRN GTB ANXIETY Last administered on 02/08/17 20: 27; Admin Dose 5 MG; Start 02/01/17 at 22:30 Duloxetine HCl (Cymbalta) 20 mg DAILY GTB Last administered on 02/18/17 08:45; Admin Dose 20 MG; Start 02/02/17 at 09:00 Multivitamins Therapeutic (Theragran) 1 tab DAILY GTB Last administered on 08:45; Admin Dose 1 TAB; Start 02/02/17 at 09:00 Zinc Sulfate (Zinc Sulfate) 220 mg DAILY GTB Last administered on 02/18/17 08: 45; Admin Dose 220 MG; Start 02/02/17 at 09:00 Lactobacillus Acidophilus (Florajen3 Capsule) 1 each TID NGT Last administered on 02/18/17 20:54; Admin Dose 1 EACH; Start 02/02/17 at 09:00 Lactulose (Enulose) 20 gm BID PO Last administered on 02/18/17 20:54; Admin Dose 20 GM; Start 02/02/17 at 09:00 Collagenase (Santyl) 1 applic DAILY TOP Last administered on 02/19/17 13:00; Admin Dose 1 APPLIC; Start 02/02/17 at 09:00 Collagenase 1 applic 1 applic PRN PRN TOP PRN; Start 02/02/17 at 04:00 Linezolid 300 ml @ 300 mls/hr Q12 IVPB Last administered on 02/19/17 21:06; Admin Dose 300 MLS/HR; Start 02/09/17 at 15:00 Metronidazole 100 ml @ 100 mls/hr Q8 IVPB Last administered on 02/20/17 05:54 ; Admin Dose 100 MLS/HR; Start 02/09/17 at 14:00 Colistimethate Sodium/Sodium Chloride (Coly-Mycin/NS) 100 ml @ 200 mls/hr Q12H IVPB Last administered on 02/19/17 16:18; Admin Dose 200 MLS/HR; Start at 04:00 Sodium Hypochlorite (Dakin'S (1/4 Strength)) 1 applic DAILY IRR Last administered on 02/20/17 09:30; Admin Dose 1 APPLIC; Start 02/10/17 at 13:30 IV Flush (NS 10 ml) 10 ml PRN PRN IV FLUSH LINE; Start 02/10/17 at 15:30 Mupirocin (Bactroban) 1 applic BID TOP Last administered on 02/19/17 23:00; Admin Dose 1 APPLIC; Start 02/11/17 at 14:00 Dextrose 25 ml 25 ml IACHS PRN IV DECREASED GLUCOSE Last administered on 10:01; Admin Dose 25 ML; Start 02/13/17 at 08:30 Total Parenteral Nutrition (Tpn) 1,000 ml @ 60 mls/hr [id number] IV Last administered on 02/19/17 15:04; Admin Dose 60 MLS/HR; Start 02/13/17 at 16:00 Dextrose (D50w Syringe) 50 ml IV PRN IV DECREASED GLUCOSE Last administered on 02/13/17 18:07; Admin Dose 50 ML; Start 02/13/17 at 14:30 Fentanyl (Duragesic 25 Mcg/Hr Patch) 1 patch Q72H TRANSDERM Last administered on 02/17/17 16:06; Admin Dose 1 PATCH; Start 02/14/17 at 15:30 IV Flush 10 ml 10 ml PRN PRN IV IV PROTOCOL; Start 02/15/17 at 21:30 Norepinephrine (Levophed) 250 ml @ 1.875 mls/ hr TITRATE IV Last administered on 02/19/17 22:32; Admin Dose 13.125 MLS/HR; Start 02/19/17 at 22:30 Diagnostic Test (Pha) 1 ea 1 ea Q4 XX Last administered on 02/20/17 09:55; Admin Dose 1 EA; Start 02/20/17 at 09:00 Dextrose (D10w) 1,000 ml @ 50 mls/hr Q20H IV Last administered on 02/20/17 09: 24; Admin Dose 50 MLS/HR; Start 02/20/17 at 09:30 REGINE BUCKLEY Feb 20, 2017 10:54
[2017-02-20] MEDS: LINEZOLID 600 MG/D5W (PMX) 300 ML IVPB SCH ×2 (10:59→21:39)
[2017-02-20] MEDS: TPN 1,000 ML IV SCH ×3 (10:59→14:37)
[2017-02-20] MEDS: ENOXAPARIN 40 MG/0.4 ML SYG SC SCH (11:01)
--- NOTE | 2017-02-20 12:18 | PN ---
Date/Time of Note Date/Time of Note DATE: 02/20/17 TIME: 12:14 Assessment/Plan Lines/Catheters IV Catheter Type (from [facility]): PICC Line George in Place (from Nrs): Yes Assessment/Plan Chief Complaint/Hosp Course 1. Multiple decubitus ulcers with debris, with likely osteo -Offload -Optimize nutrition -Vitamin C -Local care with dakins -Debridement sacrococcyx prn 2. Left lung squamous cell carcinoma with ? metastasis -medical management 3. Abdominal distention: possible ileus (likely as per CT since contrast in colon & bowel function - no obstruction noted on imaging and patient having bowel function). -decompression -monitor -repeat sbft 4. Sepsis with tachycardia, hypotension and hypoglycemia: UTI +/- Bacteremia +/ - PNA + wounds/osteo -supportive -abx per sensitivities -pulmonary toilet -optimize blood sugar -supportive 5. Acute on chronic diastolic heart failure -Judicious fluid management -Cardiac optimization 6. Hypoalbuminemia: inflammation/infection +/- malnutrition -as above -nutrition optimization 7. Depression. -Medical management 8. Hypothyroidism by history; TSH elevated -Synthroid 9. Normocytic anemia: chronic disease vs. acute bleed; no rogerio bleed noted: s/ p PRBC transfusion -monitor -transfuse as needed -per heme/onc 10. Chronic pain syndrome: patient with metastasis -continue pain management; consider non narcotic adjuncts 11. Electrolyte imbalance: -optimize lytes Thank you, Problems: Subjective 24 Hr Interval Summary Back in ICU for hypotension on pressor. Awake. Abdominal bloating. Bowel function. Leukocytosis. No fevers, chills, sob, congested cough, nausea, dysuria, excessive wound drainage, abdominal pain. Exam/Review of Systems Vital Signs Vitals Vital Signs Date Time Temp Pulse Resp B/P Pulse Ox O2 Delivery O2 Flow Rate FiO2 02/20/17 08:00 140 02/20/17 07:45 34 101/66 100 Mechanical Ventilator 02/20/17 05:00 30 02/20/17 04:00 99.5 Intake and Output 02/19/17 02/19/17 02/20/17 14:59 22:59 06:59 Intake Total 300 ml 830 ml 1172.500 ml Output Total 1550 ml 2650 ml Balance 300 ml -720 ml -1477.500 ml Exam Free Text/Dictation Constitutional: awake, No distress Psych: anxious Head: atraumatic, normocephalic Eyes: nl conjunctiva, nl lids, nl sclera ENMT: mucosa pink and dry, nl external ears & nose, nl lips & teeth; ng tube Neck: non-tender, other (tracheostomy, non-reddened, no drainage noted), supple Respiratory: normal effort, no wheezing, min thin sputum Cardiovascular: nl pulses, regular rate and rhythm Gastrointestinal: non-tender, other (gtube, site non-tender, non-reddened), distention improved; hypoactive bowel sounds Musculoskeletal: nl extremities to inspection Extremities: normal pulses, extremity Edema +2 Neurological: nl mental status, No nl strength (gen weakness) Skin: No rash; wounds (sacral wound pink wound bed min slough with min/mod drainage) Results Result Diagram: 02/19/17 0611 02/20/17 0430 ZAK POSEY MD Feb 20, 2017 12:18
--- NOTE | 2017-02-20 12:51 | PN ---
DATE: 02/20/2017 SUBJECTIVE DATA: The patient was transferred to ICU and started on vasopressor support. She is awake and looks comfortable. She is getting a small bowel follow-through x-ray. No labs this morning. INDWELLINGS: Trach, PEG, George, NG tube, PICC line. ANTIMICROBIALS: Cholestin, Zyvox, Flagyl. OBJECTIVE DATA: GENERAL: This is a cachectic, chronically ill-appearing, elderly woman who is awake, in no distress. VITAL SIGNS: Temperature T-max 100.5 current 99.5, pulse 140, respirations 34, blood pressure 101/66, saturation 100 on vent. HEENT: Head atraumatic, normocephalic. Sclerae anicteric. Buccal mucosa dry. NECK: Supple. Tracheostomy present. CHEST: Rise symmetrical. Breath sounds with scattered rhonchi. HEART: S1, S2. ABDOMEN: Soft, bowel sounds present. EXTREMITIES: Without cyanosis. ASSESSMENT: 1. Sepsis with shock. 2. Ileus versus small bowel obstruction. 3. Metastatic lung cancer. 4. Possible obstructive pneumonia. 5. Chronic respiratory failure. 6. Unstageable decubitus with culture growing multidrug resistant organisms and evidence of questionable osteomyelitis of the sacral area per CT of the abdomen and pelvis. 7. Methicillin sensitive Staphylococcus aureus nares colonization. 8. Ascites. 9. Severe cachexia. 10. Anemia. 11. History of Clostridium difficile colitis. 12. Allergy to penicillin PLAN: The patient remains hemodynamically unstable. She is being followed by multiple consultants. We will continue her on current antibiotics. Await for small bowel follow through study. Dictated By: Johnny Chapa NP /[email or web address] /Document#: [id number]
--- NOTE | 2017-02-20 14:28 | PN ---
Date/Time of Note Date/Time of Note DATE: 02/20/17 TIME: 14:27 Assessment/Plan VTE Prophylaxis VTE Prophylaxis Intervention: other Lines/Catheters IV Catheter Type (from [facility]): PICC Line Urinary Cath still in place: Yes Assessment/Plan Assessment/Plan -Small bowel obstruction. Continue G-tube to low wall suctioning. Dr Gonzales is following in gastroenterology consultation. -Sepsis, most likely secondary to urinary tract infection and possible postobstructive pneumonia. Dr. Coleman is following infection disease consultation, continue antibiotics per ID. -Hyponatremia, Dr. Zapata is following a nephrology consultation, continue IV fluids per renal. 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 -Ventilator dependent respiratory failure with tracheostomy, continue breathing treatments. 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 Subjective 24 Hr Interval Summary Constitutional: requiring IVF, requiring O2 Gastrointestinal: no complaints Genitourinary: no complaints Exam/Review of Systems Vital Signs Vitals Vital Signs Date Time Temp Pulse Resp B/P Pulse Ox O2 Delivery O2 Flow Rate FiO2 02/20/17 13:00 133 32 90/66 96 Mechanical Ventilator 02/20/17 12:00 100.0 02/20/17 11:20 23 Intake and Output 02/19/17 02/19/17 02/20/17 15:00 23:00 07:00 Intake Total 300 ml 963.125 ml 1124.375 ml Output Total 2550 ml 1800 ml Balance 300 ml -1586.875 ml -675.625 ml Exam Constitutional: alert Cardiovascular: regular rate and rhythm Musculoskeletal: muscle weakness Extremities: normal pulses Neurological: confused Results Result Diagram: 02/19/17 0611 02/20/17 0430 Results 24 hrs Laboratory Tests Test 02/19/17 19:01 02/19/17 19:36 02/19/17 19:50 02/20/17 00:06 Bedside Glucose 60 L 91 84 56 L Test 02/20/17 00:30 02/20/17 04:30 02/20/17 05:56 02/20/17 06:15 Bedside Glucose 88 53 L 92 Sodium Level 152 H Potassium Level 3.9 Chloride Level 117 H Carbon Dioxide Level 23 Anion Gap 16 Blood Urea Nitrogen 46 H Creatinine 1.00 Glucose Level 44 #*L Calcium Level 10.8 H Phosphorus Level 2.8 Magnesium Level 1.7 Test 02/20/17 09:40 02/20/17 10:27 02/20/17 10:47 02/20/17 12:40 Bedside Glucose 59 L 106 83 97 Medications Medications Current Medications Ondansetron HCl (Zofran Inj) 4 mg Q6H PRN IV NAUSEA AND/OR VOMITING Last administered on 02/05/17 09:36; Admin Dose 4 MG; Start 02/01/17 at 22:30 Acetaminophen (Tylenol Tab) 650 mg Q6H PRN PO PAIN LEVEL 1-3 OR FEVER Last administered on 02/19/17 04:25; Admin Dose 650 MG; Start 02/01/17 at 22:30 Acetaminophen/ Hydrocodone Bitart ([place] (5/325)) 1 tab Q6H PRN PO MODERATE PAIN LEVEL 4-6 Last administered on 02/04/17 21:07; Admin Dose 1 TAB; Start at 22:30 Hydromorphone HCl (Dilaudid) 0.5 mg Q4H PRN IV SEVERE PAIN LEVEL 7-10 Last administered on 02/18/17 11:28; Admin Dose 0.5 MG; Start 02/01/17 at 22:30 Docusate Sodium (Colace) 100 mg Q12H PRN PO CONSTIPATION; Start 02/01/17 at 22: 30 Magnesium Hydroxide (Milk Of Mag) 30 ml DAILY PRN PO CONSTIPATION; Start at 22:30 Bisacodyl (Dulcolax) 5 mg DAILY PRN PO CONSTIPATION; Start 02/01/17 at 22:30 Zolpidem Tartrate (Ambien) 5 mg QHS PRN PO SLEEP; Start 02/01/17 at 22:30 Lansoprazole (Prevacid) 30 mg DAILY@06 GTB Last administered on 02/18/17 05:48 ; Admin Dose 30 MG; Start 02/02/17 at 06:00 Enoxaparin Sodium (Lovenox) 40 mg DAILY SC Last administered on 02/20/17 11:01 ; Admin Dose 40 MG; Start 02/02/17 at 09:00 Ascorbic Acid (Vitamin C) 500 mg BID GTB Last administered on 02/18/17 20:54; Admin Dose 500 MG; Start 02/02/17 at 09:00 Diazepam (Valium) 5 mg DAILY PRN GTB ANXIETY Last administered on 02/08/17 20: 27; Admin Dose 5 MG; Start 02/01/17 at 22:30 Duloxetine HCl (Cymbalta) 20 mg DAILY GTB Last administered on 02/18/17 08:45; Admin Dose 20 MG; Start 02/02/17 at 09:00 Multivitamins Therapeutic (Theragran) 1 tab DAILY GTB Last administered on 08:45; Admin Dose 1 TAB; Start 02/02/17 at 09:00 Zinc Sulfate (Zinc Sulfate) 220 mg DAILY GTB Last administered on 02/18/17 08: 45; Admin Dose 220 MG; Start 02/02/17 at 09:00 Lactobacillus Acidophilus (Florajen3 Capsule) 1 each TID NGT Last administered on 02/18/17 20:54; Admin Dose 1 EACH; Start 02/02/17 at 09:00 Lactulose (Enulose) 20 gm BID PO Last administered on 02/18/17 20:54; Admin Dose 20 GM; Start 02/02/17 at 09:00 Collagenase (Santyl) 1 applic DAILY TOP Last administered on 02/20/17 09:00; Admin Dose 1 APPLIC; Start 02/02/17 at 09:00 Collagenase 1 applic 1 applic PRN PRN TOP PRN; Start 02/02/17 at 04:00 Linezolid 300 ml @ 300 mls/hr Q12 IVPB Last administered on 02/20/17 10:59; Admin Dose 300 MLS/HR; Start 02/09/17 at 15:00 Metronidazole 100 ml @ 100 mls/hr Q8 IVPB Last administered on 02/20/17 05:54 ; Admin Dose 100 MLS/HR; Start 02/09/17 at 14:00 Colistimethate Sodium/Sodium Chloride (Coly-Mycin/NS) 100 ml @ 200 mls/hr Q12H IVPB Last administered on 02/19/17 16:18; Admin Dose 200 MLS/HR; Start at 04:00 Sodium Hypochlorite (Dakin'S (1/4 Strength)) 1 applic DAILY IRR Last administered on 02/20/17 09:30; Admin Dose 1 APPLIC; Start 02/10/17 at 13:30 IV Flush (NS 10 ml) 10 ml PRN PRN IV FLUSH LINE; Start 02/10/17 at 15:30 Mupirocin (Bactroban) 1 applic BID TOP Last administered on 02/19/17 23:00; Admin Dose 1 APPLIC; Start 02/11/17 at 14:00 Dextrose 25 ml 25 ml IACHS PRN IV DECREASED GLUCOSE Last administered on 10:01; Admin Dose 25 ML; Start 02/13/17 at 08:30 Total Parenteral Nutrition (Tpn) 1,000 ml @ 60 mls/hr [id number] IV Last administered on 02/20/17 10:59; Admin Dose 60 MLS/HR; Start 02/13/17 at 16:00 Dextrose (D50w Syringe) 50 ml IV PRN IV DECREASED GLUCOSE Last administered on 02/13/17 18:07; Admin Dose 50 ML; Start 02/13/17 at 14:30 Fentanyl (Duragesic 25 Mcg/Hr Patch) 1 patch Q72H TRANSDERM Last administered on 02/17/17 16:06; Admin Dose 1 PATCH; Start 02/14/17 at 15:30 IV Flush (NS 10 ml) 10 ml PRN PRN IV IV PROTOCOL; Start 02/15/17 at 21:30 Diagnostic Test (Pha) 1 ea 1 ea Q4 XX Last administered on 02/20/17 13:32; Admin Dose 1 EA; Start 02/20/17 at 09:00 Dextrose 1,000 ml @ 50 mls/hr Q20H IV Last administered on 02/20/17 09:24; Admin Dose 50 MLS/HR; Start 02/20/17 at 09:30 Norepinephrine/ Dextrose (Levophed/D5W) 500 ml @ 0 mls/hr TITRATE IV ; Start 02/20/17 at 11:30 VIKASH CASTANEDA Feb 20, 2017 14:28
[2017-02-20] MEDS ORDERED: PHENYLephrine 20MG IN 250 ML 250 ML IV SCH (15:00)
[2017-02-20] MEDS: MUPIROCIN 2% 22 GM OINT TOP SCH ×2 (15:21→21:40)
--- NOTE | 2017-02-20 16:38 | CONS ---
Date/Time of Note Date/Time of Note DATE: 02/20/17 TIME: 16:33 Assessment/Plan Assessment/Plan Additional Assessment/Plan Severe shock, likely multifactorial in etiology Sepsis Sinus tachycardia Respiratory failure Acute decompensated diastolic congestive heart failure Pulmonary hypertension Preserved ejection fraction Tricuspid valve regurgitation Lung cancer -Patient with worsening hypotension and restarted on levophed. Continue IV pressor to maintain SBP greater than 90 and/or map above 60. IV fluids, hold any antihypertensive medications. Antibiotics as per infectious disease. Consultation Date/Type/Reason Admit Date/Time Feb 01, 2017 at 15:50 Type of Consultation: cv Reason for Consultation Hypotension and tachycardia Hx of Present Illness This is a 66-year-old female with excessive past medical history who was admitted with worsening anemia, hypotension. Patient prolonged hospital stay with concern for possible small bowel obstruction versus ileus. Patient also with sepsis. Patient waxing and waning mental status as well. Patient was weaned off pressors over the past few days but yesterday became more hypotensive and IV pressors were restarted and patient transferred back to the ICU. Patient currently with sinus tachycardia requiring IV pressor support. Subjective hx not possible: pt critical status Constitutional: requiring IVF, requiring O2 Respiratory: no complaints Cardiovascular: no complaints Gastrointestinal: no complaints Genitourinary: no complaints Psychological: confusion Past Medical History Lung cancer, respiratory failure, anemia Medical History: congestive heart failure, other (Chronc resp failure, Sacral decubitus ulcer ) Past Surgical History Past Surgical Hx: cholecystectomy, other (Tracheostomy, PEG ,Hysterectomy ) Family History Significant Family History: no pertinent family hx Social History Other Social History From nursing facility Exam/Review of Systems Vital Signs Vitals Vital Signs Date Time Temp Pulse Resp B/P Pulse Ox O2 Delivery O2 Flow Rate FiO2 02/20/17 13:00 133 32 90/66 96 Mechanical Ventilator 02/20/17 12:00 100.0 02/20/17 11:20 23 Intake and Output 02/19/17 02/19/17 02/20/17 15:00 23:00 07:00 Intake Total 300 ml 963.125 ml 1124.375 ml Output Total 2550 ml 1800 ml Balance 300 ml -1586.875 ml -675.625 ml Exam Awake, not following commands, appears uncomfortable Head: normocephalic Neck: other (Tracheostomy) Respiratory: other (Coarse breath sounds bilaterally, no wheezing) Cardiovascular: other (S1-S2 heard), regular rate and rhythm (Tachycardia) Gastrointestinal: distended, other, soft, tender Extremities: edema Results Result Diagram: 02/19/17 0611 02/20/17 0430 Results 24 hrs Laboratory Tests Test 02/19/17 19:01 02/19/17 19:36 02/19/17 19:50 02/20/17 00:06 Bedside Glucose 60 L 91 84 56 L Test 02/20/17 00:30 02/20/17 04:30 02/20/17 05:56 02/20/17 06:15 Bedside Glucose 88 53 L 92 Sodium Level 152 H Potassium Level 3.9 Chloride Level 117 H Carbon Dioxide Level 23 Anion Gap 16 Blood Urea Nitrogen 46 H Creatinine 1.00 Glucose Level 44 #*L Calcium Level 10.8 H Phosphorus Level 2.8 Magnesium Level 1.7 Test 02/20/17 09:40 02/20/17 10:27 02/20/17 10:47 02/20/17 12:40 Bedside Glucose 59 L 106 83 97 Medications Medications Current Medications Ondansetron HCl (Zofran Inj) 4 mg Q6H PRN IV NAUSEA AND/OR VOMITING Last administered on 02/05/17 09:36; Admin Dose 4 MG; Start 02/01/17 at 22:30 Acetaminophen (Tylenol Tab) 650 mg Q6H PRN PO PAIN LEVEL 1-3 OR FEVER Last administered on 02/19/17 04:25; Admin Dose 650 MG; Start 02/01/17 at 22:30 Acetaminophen/ Hydrocodone Bitart ([place] (5/325)) 1 tab Q6H PRN PO MODERATE PAIN LEVEL 4-6 Last administered on 02/04/17 21:07; Admin Dose 1 TAB; Start at 22:30 Hydromorphone HCl (Dilaudid) 0.5 mg Q4H PRN IV SEVERE PAIN LEVEL 7-10 Last administered on 02/18/17 11:28; Admin Dose 0.5 MG; Start 02/01/17 at 22:30 Docusate Sodium (Colace) 100 mg Q12H PRN PO CONSTIPATION; Start 02/01/17 at 22: 30 Magnesium Hydroxide (Milk Of Mag) 30 ml DAILY PRN PO CONSTIPATION; Start at 22:30 Bisacodyl (Dulcolax) 5 mg DAILY PRN PO CONSTIPATION; Start 02/01/17 at 22:30 Zolpidem Tartrate (Ambien) 5 mg QHS PRN PO SLEEP; Start 02/01/17 at 22:30 Lansoprazole (Prevacid) 30 mg DAILY@06 GTB Last administered on 02/18/17 05:48 ; Admin Dose 30 MG; Start 02/02/17 at 06:00 Enoxaparin Sodium (Lovenox) 40 mg DAILY SC Last administered on 02/20/17 11:01 ; Admin Dose 40 MG; Start 02/02/17 at 09:00 Ascorbic Acid (Vitamin C) 500 mg BID GTB Last administered on 02/18/17 20:54; Admin Dose 500 MG; Start 02/02/17 at 09:00 Diazepam (Valium) 5 mg DAILY PRN GTB ANXIETY Last administered on 02/08/17 20: 27; Admin Dose 5 MG; Start 02/01/17 at 22:30 Duloxetine HCl (Cymbalta) 20 mg DAILY GTB Last administered on 02/18/17 08:45; Admin Dose 20 MG; Start 02/02/17 at 09:00 Multivitamins Therapeutic (Theragran) 1 tab DAILY GTB Last administered on 08:45; Admin Dose 1 TAB; Start 02/02/17 at 09:00 Zinc Sulfate (Zinc Sulfate) 220 mg DAILY GTB Last administered on 02/18/17 08: 45; Admin Dose 220 MG; Start 02/02/17 at 09:00 Lactobacillus Acidophilus (Florajen3 Capsule) 1 each TID NGT Last administered on 02/18/17 20:54; Admin Dose 1 EACH; Start 02/02/17 at 09:00 Lactulose (Enulose) 20 gm BID PO Last administered on 02/18/17 20:54; Admin Dose 20 GM; Start 02/02/17 at 09:00 Collagenase (Santyl) 1 applic DAILY TOP Last administered on 02/20/17 09:00; Admin Dose 1 APPLIC; Start 02/02/17 at 09:00 Collagenase 1 applic 1 applic PRN PRN TOP PRN; Start 02/02/17 at 04:00 Linezolid 300 ml @ 300 mls/hr Q12 IVPB Last administered on 02/20/17 10:59; Admin Dose 300 MLS/HR; Start 02/09/17 at 15:00 Metronidazole 100 ml @ 100 mls/hr Q8 IVPB Last administered on 02/20/17 15:21 ; Admin Dose 100 MLS/HR; Start 02/09/17 at 14:00 Colistimethate Sodium/Sodium Chloride (Coly-Mycin/NS) 100 ml @ 200 mls/hr Q12H IVPB Last administered on 02/19/17 16:18; Admin Dose 200 MLS/HR; Start at 04:00 Sodium Hypochlorite (Dakin'S (06/21 Strength)) 1 applic DAILY IRR Last administered on 02/20/17 09:30; Admin Dose 1 APPLIC; Start 02/10/17 at 13:30 IV Flush (NS 10 ml) 10 ml PRN PRN IV FLUSH LINE; Start 02/10/17 at 15:30 Mupirocin (Bactroban) 1 applic BID TOP Last administered on 02/20/17 15:21; Admin Dose 1 APPLIC; Start 02/11/17 at 14:00 Dextrose 25 ml 25 ml IACHS PRN IV DECREASED GLUCOSE Last administered on 10:01; Admin Dose 25 ML; Start 02/13/17 at 08:30 Total Parenteral Nutrition (Tpn) 1,000 ml @ 60 mls/hr [id number] IV Last administered on 02/20/17 14:37; Admin Dose 60 MLS/HR; Start 02/13/17 at 16:00 Dextrose (D50w Syringe) 50 ml IV PRN IV DECREASED GLUCOSE Last administered on 02/13/17 18:07; Admin Dose 50 ML; Start 02/13/17 at 14:30 Fentanyl (Duragesic 25 Mcg/Hr Patch) 1 patch Q72H TRANSDERM Last administered on 02/17/17 16:06; Admin Dose 1 PATCH; Start 02/14/17 at 15:30 IV Flush (NS 10 ml) 10 ml PRN PRN IV IV PROTOCOL; Start 02/15/17 at 21:30 Diagnostic Test (Pha) 1 ea 1 ea Q4 XX Last administered on 02/20/17 13:32; Admin Dose 1 EA; Start 02/20/17 at 09:00 Dextrose 1,000 ml @ 50 mls/hr Q20H IV Last administered on 02/20/17 09:24; Admin Dose 50 MLS/HR; Start 02/20/17 at 09:30 Norepinephrine 16 mg/Dextrose 500 ml @ 0 mls/hr TITRATE IV Last administered on 02/20/17 14:31; Admin Dose 33.75 MLS/HR; Start 02/20/17 at 11:30 Phenylephrine HCl (Mane-Syneph) 250 ml @ 75 mls/hr TITRATE IV ; Start 02/20/17 at 15:00 Procedures Procedures ECG done yesterday demonstrates sinus tachycardia at 129 bpm, QRS 76 ms, nonspecific T-wave abnormalities Artemio Tipton DO Feb 20, 2017 16:38
[2017-02-20] MEDS ORDERED: SOD CHLORIDE 0.9% 1,000 ML IV ONE (17:00)
[2017-02-20] MEDS: ACETAMINOPHEN 1000MG/100ML IV 100 ML IVPB PRN (17:34)
--- NOTE | 2017-02-20 17:57 | CONS ---
Date/Time of Note Date/Time of Note DATE: 02/20/17 TIME: 17:53 Assessment/Plan Assessment/Plan Additional Assessment/Plan 1. 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 Shock multifactorial on levophed 3. Recurrent Multidrug Resistant Urinary tract infection 4. Sacral wound 5. Chronic resp failure 6.S/P Tracheostomy, S/p PEG tube placement 7. Lung CA- Squamous Cell CA 8. Hypercalcemia due to squamous cell CA of lung- s/p Pamidronate 30mg IV on Plan: -Continue current IV abx , ID following, pt is on levophed for BP support - Strat D10% for hypoglycemia, Continue TPN as ordered -S/p 3 % saline on02/09/17- s/p tolvaptan 15 mg [id number] x 1 dose on 02/13/17- Na improved to 138 on 02/16/17 then again trending up - Ca came down to 11.4- s/p One dose of pamidronate 30mg IV x 1 on 02/15/17 -will follow up Consultation Date/Type/Reason Admit Date/Time Feb 01, 2017 at 15:50 Initial Consult Date 02/08/17 Type of Consultation: NEPHROLOGY Referring Provider: DRE LOBATO MD 24 HR Interval Summary Free Text/Dictation pt Tranfered to ICU< hypotensive, Na trending up, Cr normal, pt is persistently hypoglycemic Exam/Review of Systems Vital Signs Vitals Vital Signs Date Time Temp Pulse Resp B/P Pulse Ox O2 Delivery O2 Flow Rate FiO2 02/20/17 17:20 140 27 100 30 02/20/17 13:00 90/66 Mechanical Ventilator 02/20/17 12:00 100.0 Intake and Output 02/19/17 02/19/17 02/20/17 15:00 23:00 07:00 Intake Total 300 ml 963.125 ml 1124.375 ml Output Total 2550 ml 1800 ml Balance 300 ml -1586.875 ml -675.625 ml Exam Constitutional: non-verbal ENMT: other (+ trachoestomy on ventilator ) Neck: supple Respiratory: congested cough, crackles/rales, diminished breath sounds, other ( Bilateral Coarse BS+) Cardiovascular: regular rate and rhythm Gastrointestinal: distended, soft Musculoskeletal: other (cachectic LE ) Neurological: other (Non verbal ) Results Result Diagram: 02/19/17 0611 02/20/17 0430 Results 24 hrs Laboratory Tests Test 02/19/17 19:01 02/19/17 19:36 02/19/17 19:50 02/20/17 00:06 Bedside Glucose 60 L 91 84 56 L Test 02/20/17 00:30 02/20/17 04:30 02/20/17 05:56 02/20/17 06:15 Bedside Glucose 88 53 L 92 Sodium Level 152 H Potassium Level 3.9 Chloride Level 117 H Carbon Dioxide Level 23 Anion Gap 16 Blood Urea Nitrogen 46 H Creatinine 1.00 Glucose Level 44 #*L Calcium Level 10.8 H Phosphorus Level 2.8 Magnesium Level 1.7 Test 02/20/17 09:40 02/20/17 10:27 02/20/17 10:47 02/20/17 12:40 Bedside Glucose 59 L 106 83 97 Test 02/20/17 16:55 Bedside Glucose 78 Medications Medications Current Medications Ondansetron HCl (Zofran Inj) 4 mg Q6H PRN IV NAUSEA AND/OR VOMITING Last administered on 02/05/17 09:36; Admin Dose 4 MG; Start 02/01/17 at 22:30 Acetaminophen (Tylenol Tab) 650 mg Q6H PRN PO PAIN LEVEL 1-3 OR FEVER Last administered on 02/19/17 04:25; Admin Dose 650 MG; Start 02/01/17 at 22:30; Status Future Hold Acetaminophen/ Hydrocodone Bitart ([place] (5/325)) 1 tab Q6H PRN PO MODERATE PAIN LEVEL 4-6 Last administered on 02/04/17 21:07; Admin Dose 1 TAB; Start at 22:30; Status Future hold Hydromorphone HCl (Dilaudid) 0.5 mg Q4H PRN IV SEVERE PAIN LEVEL 7-10 Last administered on 02/18/17 11:28; Admin Dose 0.5 MG; Start 02/01/17 at 22:30 Docusate Sodium (Colace) 100 mg Q12H PRN PO CONSTIPATION; Start 02/01/17 at 22: 30 Magnesium Hydroxide (Milk Of Mag) 30 ml DAILY PRN PO CONSTIPATION; Start at 22:30 Bisacodyl (Dulcolax) 5 mg DAILY PRN PO CONSTIPATION; Start 02/01/17 at 22:30 Zolpidem Tartrate (Ambien) 5 mg QHS PRN PO SLEEP; Start 02/01/17 at 22:30 Lansoprazole (Prevacid) 30 mg DAILY@06 GTB Last administered on 02/18/17 05:48 ; Admin Dose 30 MG; Start 02/02/17 at 06:00 Enoxaparin Sodium (Lovenox) 40 mg DAILY SC Last administered on 02/20/17 11:01 ; Admin Dose 40 MG; Start 02/02/17 at 09:00 Ascorbic Acid (Vitamin C) 500 mg BID GTB Last administered on 02/18/17 20:54; Admin Dose 500 MG; Start 02/02/17 at 09:00 Diazepam (Valium) 5 mg DAILY PRN GTB ANXIETY Last administered on 02/08/17 20: 27; Admin Dose 5 MG; Start 02/01/17 at 22:30 Duloxetine HCl (Cymbalta) 20 mg DAILY GTB Last administered on 02/18/17 08:45; Admin Dose 20 MG; Start 02/02/17 at 09:00 Multivitamins Therapeutic (Theragran) 1 tab DAILY GTB Last administered on 08:45; Admin Dose 1 TAB; Start 02/02/17 at 09:00 Zinc Sulfate (Zinc Sulfate) 220 mg DAILY GTB Last administered on 02/18/17 08: 45; Admin Dose 220 MG; Start 02/02/17 at 09:00 Lactobacillus Acidophilus (Florajen3 Capsule) 1 each TID NGT Last administered on 02/18/17 20:54; Admin Dose 1 EACH; Start 02/02/17 at 09:00 Lactulose (Enulose) 20 gm BID PO Last administered on 02/18/17 20:54; Admin Dose 20 GM; Start 02/02/17 at 09:00 Collagenase (Santyl) 1 applic DAILY TOP Last administered on 02/20/17 09:00; Admin Dose 1 APPLIC; Start 02/02/17 at 09:00 Collagenase 1 applic 1 applic PRN PRN TOP PRN; Start 02/02/17 at 04:00 Linezolid 300 ml @ 300 mls/hr Q12 IVPB Last administered on 02/20/17 10:59; Admin Dose 300 MLS/HR; Start 02/09/17 at 15:00 Metronidazole 100 ml @ 100 mls/hr Q8 IVPB Last administered on 02/20/17 15:21 ; Admin Dose 100 MLS/HR; Start 02/09/17 at 14:00 Colistimethate Sodium/Sodium Chloride (Coly-Mycin/NS) 100 ml @ 200 mls/hr Q12H IVPB Last administered on 02/20/17 16:56; Admin Dose 200 MLS/HR; Start at 04:00 Sodium Hypochlorite (Dakin'S (1/4 Strength)) 1 applic DAILY IRR Last administered on 02/20/17 09:30; Admin Dose 1 APPLIC; Start 02/10/17 at 13:30 IV Flush (NS 10 ml) 10 ml PRN PRN IV FLUSH LINE; Start 02/10/17 at 15:30 Mupirocin (Bactroban) 1 applic BID TOP Last administered on 02/20/17 15:21; Admin Dose 1 APPLIC; Start 02/11/17 at 14:00 Dextrose 25 ml 25 ml IACHS PRN IV DECREASED GLUCOSE Last administered on 10:01; Admin Dose 25 ML; Start 02/13/17 at 08:30 Total Parenteral Nutrition (Tpn) 1,000 ml @ 60 mls/hr [id number] IV Last administered on 02/20/17 14:37; Admin Dose 60 MLS/HR; Start 02/13/17 at 16:00 Dextrose (D50w Syringe) 50 ml IV PRN IV DECREASED GLUCOSE Last administered on 02/13/17 18:07; Admin Dose 50 ML; Start 02/13/17 at 14:30 Fentanyl (Duragesic 25 Mcg/Hr Patch) 1 patch Q72H TRANSDERM Last administered on 02/17/17 16:06; Admin Dose 1 PATCH; Start 02/14/17 at 15:30 IV Flush (NS 10 ml) 10 ml PRN PRN IV IV PROTOCOL; Start 02/15/17 at 21:30 Diagnostic Test (Pha) 1 ea 1 ea Q4 XX Last administered on 02/20/17 16:56; Admin Dose 1 EA; Start 02/20/17 at 09:00 Dextrose 1,000 ml @ 50 mls/hr Q20H IV Last administered on 02/20/17 09:24; Admin Dose 50 MLS/HR; Start 02/20/17 at 09:30 Norepinephrine 16 mg/Dextrose 500 ml @ 0 mls/hr TITRATE IV Last administered on 02/20/17 14:31; Admin Dose 33.75 MLS/HR; Start 02/20/17 at 11:30 Phenylephrine HCl 250 ml @ 75 mls/hr TITRATE IV ; Start 02/20/17 at 15:00 Sodium Chloride 1,000 ml @ 1,000 mls/hr Q1H ONCE IV ; Start 02/20/17 at 17:00; Stop 02/20/17 at 17:59 Acetaminophen (Ofirmev 1000mg/ 100ml Iv) 100 ml @ 400 mls/hr Q6H PRN IVPB FEVER Last administered on 02/20/17 17:34; Admin Dose 400 MLS/HR; Start 02/20/17 at 17:30 DIONNE SAUCEDA MD Feb 20, 2017 17:57
--- NOTE | 2017-02-20 22:10 | RADRPT ---
PROCEDURE: Small bowel follow-through CLINICAL INDICATION: 66 years of age, female. Evaluate for bowel obstruction. TECHNIQUE: Multiple spot radiographs of the abdomen were obtained following the administration of 300 mL Omnipaque 300 orally through an enteric tube. 11 radiographs were obtained over 7 hours. COMPARISON: None available. FINDINGS: Preliminary radiograph demonstrates prominent gas filled loops small bowel and colon with a nonspeci fic bowel gas pattern. There is combined anterior and posterior fusion hardware in the lower lumbar spine. There are tacks in the abdominal wall projected over the right lower quadrant. Surgical clips right upper quadrant from cholecystectomy. There is an enteric tube coiled in the stomach. There is nonspecific opacity in the left mid lung zone that is incompletely evaluated. Small bowel transit time is slow. Oral contrast and reaches the right colon at 5-7 hours. Small justus l loops are mildly dilated measuring a 4.5 cm. The right colon is also dilated with gas measuring 11 .1 cm. Small bowel loops are normal in contour and mucosal detail. Fluoroscopy was not performed in this exam does not evaluate peristalsis. Spot views of the terminal ileum were not obtained. IMPRESSION: Slow transit of contrast through the small bowel with dilated small bowel and colon is most in keepi ng with an adynamic ileus rather than a mechanical bowel obstruction. Nonspecific opacity left mid lung zone is incompletely evaluated and may represent pneumonia or a ma ss. Recommend further evaluation with dedicated chest x-ray. Patient's chest x-ray from February 15 017 is not available for review. RPTAT: HCTS Physician Satya Date Time Electronically viewed and signed by Physician Satya on 02/20/2017 22:10 BALAJI/
[2017-02-20] MEDS: HYDROmorphONE 1 MG/ML SYG IV PRN (22:50)
--- NOTE | 2017-02-20 23:07 | CONS ---
Date/Time of Note Date/Time of Note DATE: 02/20/17 TIME: 23:06 Assessment/Plan Assessment/Plan Chief Complaint/Hosp Course -Anemia, POST PRBC transfuse packed red blood cells as needed continue to monitor H&H. COMPLEX, MULTIFACTORIAL -Left lung squamous carcinoma, NOW WITH POS LIVER METS supportive care no aggressive treatment planned HYPERCALCEMIA POST AREDIA CA-IMPROVED - SBO NOW ON CONSERVATIVE MANAGEMENT -Sepsis, most likely secondary to urinary tract infection and possible postobstructive pneumonia. Dr. Coleman is following infection disease consultation, follow-up on cultures, continue antibiotics per ID. -Hyponatremia, nephrology f-up, continue IV fluids per renal. -Ventilator dependent respiratory failure with tracheostomy, continue breathing treatments. -COPD -Dysphagia with PEG -History of cardiopulmonary arrest -Multiple wounds present on admission, that is post debridement at last admission. -Hypothyroidism -Chronic urinary retention with George catheter PROGNOSIS- POOR Problems: Consultation Date/Type/Reason Admit Date/Time Feb 01, 2017 at 15:50 Initial Consult Date 02/08/17 Type of Consultation: hemeon Referring Provider: DRE LOBATO MD 24 HR Interval Summary Free Text/Dictation all noted in icu on levophed Exam/Review of Systems Vital Signs Vitals Vital Signs Date Time Temp Pulse Resp B/P Pulse Ox O2 Delivery O2 Flow Rate FiO2 02/20/17 20:00 131 02/20/17 19:18 22 95 30 02/20/17 18:00 79/60 Mechanical Ventilator 02/20/17 17:00 101.5 Intake and Output 02/19/17 02/19/17 02/20/17 15:00 23:00 07:00 Intake Total 300 ml 963.125 ml 1141.250 ml Output Total 2550 ml 1800 ml Balance 300 ml -1586.875 ml -658.750 ml Exam Exam GENERAL: This is a well-developed, ill-appearing man, who is awake, in no distress. HEENT: Head atraumatic, normocephalic. Sclerae anicteric. Buccal mucosa pink and dry. NECK: Supple. CHEST: Rise symmetrical. Breath sounds diminished at the bases. HEART: S1, S2. ABDOMEN: Soft, bowel sounds present. EXTREMITIES: Without cyanosis. + WOUNDS Results Result Diagram: 02/19/17 0611 02/20/17 0430 Results 24 hrs Laboratory Tests Test 02/20/17 00:06 02/20/17 00:30 02/20/17 04:30 02/20/17 05:56 Bedside Glucose 56 L 88 53 L Sodium Level 152 H Potassium Level 3.9 Chloride Level 117 H Carbon Dioxide Level 23 Anion Gap 16 Blood Urea Nitrogen 46 H Creatinine 1.00 Glucose Level 44 #*L Calcium Level 10.8 H Phosphorus Level 2.8 Magnesium Level 1.7 Test 02/20/17 06:15 02/20/17 09:40 02/20/17 10:27 02/20/17 10:47 Bedside Glucose 92 59 L 106 83 Test 02/20/17 12:40 02/20/17 16:55 02/20/17 21:46 Bedside Glucose 97 78 90 Medications Medications Current Medications Ondansetron HCl (Zofran Inj) 4 mg Q6H PRN IV NAUSEA AND/OR VOMITING Last administered on 02/05/17 09:36; Admin Dose 4 MG; Start 02/01/17 at 22:30 Acetaminophen (Tylenol Tab) 650 mg Q6H PRN PO PAIN LEVEL 1-3 OR FEVER Last administered on 02/19/17 04:25; Admin Dose 650 MG; Start 02/01/17 at 22:30; Status Future Hold Acetaminophen/ Hydrocodone Bitart ([place] (5/325)) 1 tab Q6H PRN PO MODERATE PAIN LEVEL 4-6 Last administered on 02/04/17 21:07; Admin Dose 1 TAB; Start at 22:30; Status Future hold Hydromorphone HCl (Dilaudid) 0.5 mg Q4H PRN IV SEVERE PAIN LEVEL 7-10 Last administered on 02/20/17 22:50; Admin Dose 0.5 MG; Start 02/01/17 at 22:30 Docusate Sodium (Colace) 100 mg Q12H PRN PO CONSTIPATION; Start 02/01/17 at 22: 30 Magnesium Hydroxide (Milk Of Mag) 30 ml DAILY PRN PO CONSTIPATION; Start at 22:30 Bisacodyl (Dulcolax) 5 mg DAILY PRN PO CONSTIPATION; Start 02/01/17 at 22:30 Zolpidem Tartrate (Ambien) 5 mg QHS PRN PO SLEEP; Start 02/01/17 at 22:30 Lansoprazole (Prevacid) 30 mg DAILY@06 GTB Last administered on 02/18/17 05:48 ; Admin Dose 30 MG; Start 02/02/17 at 06:00 Enoxaparin Sodium (Lovenox) 40 mg DAILY SC Last administered on 02/20/17 11:01 ; Admin Dose 40 MG; Start 02/02/17 at 09:00 Ascorbic Acid (Vitamin C) 500 mg BID GTB Last administered on 02/18/17 20:54; Admin Dose 500 MG; Start 02/02/17 at 09:00 Diazepam (Valium) 5 mg DAILY PRN GTB ANXIETY Last administered on 02/08/17 20: 27; Admin Dose 5 MG; Start 02/01/17 at 22:30 Duloxetine HCl (Cymbalta) 20 mg DAILY GTB Last administered on 02/18/17 08:45; Admin Dose 20 MG; Start 02/02/17 at 09:00 Multivitamins Therapeutic (Theragran) 1 tab DAILY GTB Last administered on 08:45; Admin Dose 1 TAB; Start 02/02/17 at 09:00 Zinc Sulfate (Zinc Sulfate) 220 mg DAILY GTB Last administered on 02/18/17 08: 45; Admin Dose 220 MG; Start 02/02/17 at 09:00 Lactobacillus Acidophilus (Florajen3 Capsule) 1 each TID NGT Last administered on 02/18/17 20:54; Admin Dose 1 EACH; Start 02/02/17 at 09:00 Lactulose (Enulose) 20 gm BID PO Last administered on 02/18/17 20:54; Admin Dose 20 GM; Start 02/02/17 at 09:00 Collagenase (Santyl) 1 applic DAILY TOP Last administered on 02/20/17 09:00; Admin Dose 1 APPLIC; Start 02/02/17 at 09:00 Collagenase 1 applic 1 applic PRN PRN TOP PRN; Start 02/02/17 at 04:00 Linezolid 300 ml @ 300 mls/hr Q12 IVPB Last administered on 02/20/17 21:39; Admin Dose 300 MLS/HR; Start 02/09/17 at 15:00 Metronidazole 100 ml @ 100 mls/hr Q8 IVPB Last administered on 02/20/17 22:50 ; Admin Dose 100 MLS/HR; Start 02/09/17 at 14:00 Colistimethate Sodium/Sodium Chloride (Coly-Mycin/NS) 100 ml @ 200 mls/hr Q12H IVPB Last administered on 02/20/17 16:56; Admin Dose 200 MLS/HR; Start at 04:00 Sodium Hypochlorite (Dakin'S (1/4 Strength)) 1 applic DAILY IRR Last administered on 02/20/17 09:30; Admin Dose 1 APPLIC; Start 02/10/17 at 13:30 IV Flush (NS 10 ml) 10 ml PRN PRN IV FLUSH LINE; Start 02/10/17 at 15:30 Mupirocin (Bactroban) 1 applic BID TOP Last administered on 02/20/17 21:40; Admin Dose 1 APPLIC; Start 02/11/17 at 14:00 Dextrose 25 ml 25 ml IACHS PRN IV DECREASED GLUCOSE Last administered on 10:01; Admin Dose 25 ML; Start 02/13/17 at 08:30 Total Parenteral Nutrition (Tpn) 1,000 ml @ 60 mls/hr [id number] IV Last administered on 02/20/17 14:37; Admin Dose 60 MLS/HR; Start 02/13/17 at 16:00 Dextrose (D50w Syringe) 50 ml IV PRN IV DECREASED GLUCOSE Last administered on 02/13/17 18:07; Admin Dose 50 ML; Start 02/13/17 at 14:30 Fentanyl (Duragesic 25 Mcg/Hr Patch) 1 patch Q72H TRANSDERM Last administered on 02/20/17 17:54; Admin Dose 1 PATCH; Start 02/14/17 at 15:30 IV Flush (NS 10 ml) 10 ml PRN PRN IV IV PROTOCOL; Start 02/15/17 at 21:30 Diagnostic Test (Pha) 1 ea 1 ea Q4 XX Last administered on 02/20/17 16:56; Admin Dose 1 EA; Start 02/20/17 at 09:00 Dextrose 1,000 ml @ 50 mls/hr Q20H IV Last administered on 02/20/17 09:24; Admin Dose 50 MLS/HR; Start 9/5/17 at 09:30 Norepinephrine 16 mg/Dextrose 500 ml @ 0 mls/hr TITRATE IV Last administered on 02/20/17 14:31; Admin Dose 33.75 MLS/HR; Start 02/20/17 at 11:30 Phenylephrine HCl 250 ml @ 75 mls/hr TITRATE IV ; Start 02/20/17 at 15:00 Acetaminophen (Ofirmev 1000mg/ 100ml Iv) 100 ml @ 400 mls/hr Q6H PRN IVPB FEVER Last administered on 02/20/17 17:34; Admin Dose 400 MLS/HR; Start 02/20/17 at 17:30 DYLLAN CARRION MD Feb 20, 2017 23:07
[2017-02-21] VITALS (77 sets, daily range): BP systolic 80–140; BP diastolic 55–87; PULSE 89–133; RESP 16–33
[2017-02-21] MEDS: ACCU-CHEK XX SCH ×5 (01:00→21:00)
[2017-02-21] MEDS: IPRATROPIUM (HFA) 12.9 GM INHALER INH SCH ×4 (01:25→19:38)
[2017-02-21] MEDS: ALBUTEROL 18 GM INHALER INH SCH ×4 (01:25→19:37)
[2017-02-21] MEDS: COLISTIMETHATE 100 MG in SOD CHLORIDE 0.9% 100 ML IVPB SCH ×2 (03:28→16:21)
[2017-02-21] MEDS: DEXTROSE 10% 1,000 ML IV SCH (04:48)
[2017-02-21] MEDS: LANSOPRAZOLE 30 MG CAP GTB SCH (05:20)
[2017-02-21 05:27] LABS: ABNORMAL IP MESSAGE 1; HEMATOCRIT 25.7 % (37.0-47.0); HEMOGLOBIN 7.8 g/dl (12.0-16.0); MEAN CORPUSCULAR HGB CONC 30.4 g/dl (32.0-37.0); MEAN CORPUSCULAR VOLUME 88.9 fl (82.0-101.0); MEAN PLATELET VOLUME 9.4 fl (7.4-10.4); NUCLEATED RED BLOOD CELLS% 0.1 /100WBC (0.0-0.0); PLATELET COUNT 73 10^3/UL (140-415); RED BLOOD COUNT 2.89 10^6/ul (4.20-5.40); RED CELL DISTRIBUTION WIDTH 18.6 % (11.5-14.5); WHITE BLOOD COUNT 33.4 10^3/ul (4.8-10.8)
[2017-02-21 05:31] LABS: POSITIVE DIFF @See below
[2017-02-21] MEDS: metroNIDAZOLE 500 MG/NS (PMX) 100 ML IVPB SCH ×3 (05:34→21:59)
[2017-02-21 05:49] LABS: ALBUMIN 2.1 g/dl (3.3-4.9); ALBUMIN/GLOBULIN RATIO 0.55; CALCIUM 9.7 mg/dl (8.4-10.2); CREATININE 1.05 mg/dl (0.44-1.00); POTASSIUM 3.7 mmol/L (3.5-5.1); TOTAL PROTEIN 5.9 g/dl (6.1-8.1)
[2017-02-21] MEDS: TPN 1,000 ML IV SCH (06:01)
[2017-02-21 06:49] LABS: HEMATOCRIT 25.5 % (37.0-47.0); HEMOGLOBIN 7.6 g/dl (12.0-16.0)
[2017-02-21] MEDS: ACETAMINOPHEN 1000MG/100ML IV 100 ML IVPB PRN (07:03)
[2017-02-21 08:43] LABS: ANISOCYTOSIS 1+ (0-0); EOSINOPHILS % (M) 4 % (0-7); MONOCYTES % (M) 3 % (0-11); MYELOCYTES % (M) 1 % (0-0); PLATELET ESTIMATE DECREASED; POLYCHROMASIA 1+ (0-0)
[2017-02-21] MEDS: ASCORBIC ACID 500 MG TAB GTB SCH ×2 (09:00→20:58)
[2017-02-21] MEDS: ZINC SULFATE 220 MG CAP GTB SCH (09:00)
[2017-02-21] MEDS: DULOXETINE 20 MG CAP DR GTB SCH (09:00)
[2017-02-21] MEDS: SODIUM HYPOCHLORITE 0.125% 473 ML BTL IRR SCH (09:00)
[2017-02-21] MEDS: L ACIDOPHIL/B LACTIS/B LONGUM CAPSULE NGT SCH ×3 (09:00→20:58)
[2017-02-21] MEDS: LACTULOSE 30ML CUP PO SCH ×2 (09:00→20:58)
[2017-02-21] MEDS: MULTIVITAMINS THERAPEUTIC TAB GTB SCH (09:00)
[2017-02-21] MEDS: ENOXAPARIN 40 MG/0.4 ML SYG SC SCH (09:00)
--- NOTE | 2017-02-21 09:07 | PN ---
Date/Time of Note Date/Time of Note DATE: 02/21/17 TIME: 08:54 Assessment/Plan Lines/Catheters IV Catheter Type (from Nrs): PICC Line George in Place (from Nrs): Yes Assessment/Plan Chief Complaint/Hosp Course 1. Multiple decubitus ulcers with debris and slough, with likely osteo -Offload -Optimize nutrition -Vitamin C -Local care with dakins- increase dressing changes for increase in drainage -Debridement sacrococcyx prn 2. Left lung squamous cell carcinoma with ? metastasis -medical management 3. Abdominal distention: possible ileus (likely as per CT since contrast in colon & bowel function - no obstruction noted on imaging and patient having bowel function)' repeat SBFT: likely adynamic ileus; continues to have bowel function: improving -decompression -monitor 4. Sepsis with tachycardia, hypotension and hypoglycemia: UTI +/- Bacteremia +/ - PNA + wounds/osteo -supportive -abx per sensitivities -pulmonary toilet -optimize blood sugar -supportive 5. Acute on chronic diastolic heart failure -Judicious fluid management -Cardiac optimization 6. Hypoalbuminemia: inflammation/infection +/- malnutrition -as above -nutrition optimization 7. Depression. -Medical management 8. Hypothyroidism by history; TSH elevated -Synthroid 9. Normocytic anemia: chronic disease vs. acute bleed; no rogerio bleed noted: s/ p PRBC transfusion -monitor -transfuse as needed -per heme/onc 10. Chronic pain syndrome: patient with metastasis -continue pain management; consider non narcotic adjuncts 11. Electrolyte imbalance: -optimize lytes Patient seen and examined in collaboration with Dr. Christian Sinclair. Thank you. Problems: Subjective 24 Hr Interval Summary Continues in ICU. On pressors. Sinus tachycardia. Fevers up to 102. NGT to lcws but no output. Awake, diaphoretic. No robles, dizziness, sob, congested cough, abdominal pain, bloating, n/v/d/dysuria or excessive wound drainage. +bowel function. Exam/Review of Systems Vital Signs Vitals Vital Signs Date Time Temp Pulse Resp B/P Pulse Ox O2 Delivery O2 Flow Rate FiO2 02/21/17 08:00 130 02/21/17 07:00 102.5 32 99/76 100 Mechanical Ventilator 02/21/17 05:16 30 Intake and Output 02/20/17 02/20/17 02/21/17 15:00 23:00 07:00 Intake Total 1332.975 ml 2651.25 ml 1573.75 ml Output Total 725 ml 1225 ml 1450 ml Balance 607.975 ml 1426.25 ml 123.75 ml Exam Free Text/Dictation Constitutional: awake, No distress, diaphoretic Psych: anxious Head: atraumatic, normocephalic Eyes: nl conjunctiva, nl lids, nl sclera ENMT: mucosa pink and dry, nl external ears & nose, nl lips; poor dentition, ng tube Neck: non-tender, other (tracheostomy, non-reddened, no drainage noted), supple Respiratory: normal effort, no wheezing, diminished, min thin sputum Cardiovascular: nl pulses, regular rate and rhythm, ST Gastrointestinal: non-tender, other (gtube, site non-tender, non-reddened), min distention; hypoactive bowel sounds Musculoskeletal: nl extremities to inspection Extremities: normal pulses, pedal Edema +2, cool temp bilat feet Neurological: nl mental status, No nl strength (gen weakness) Skin: No rash; wounds (sacral wound pink wound bed mod slough and debris with mod drainage) Results Result Diagram: 02/21/17 0644 02/21/17 0520 JERRY SAHU NP Feb 21, 2017 09:04
[2017-02-21] MEDS: LINEZOLID 600 MG/D5W (PMX) 300 ML IVPB SCH ×2 (09:13→20:58)
[2017-02-21] MEDS: MUPIROCIN 2% 22 GM OINT TOP SCH ×2 (09:32→20:59)
[2017-02-21] MEDS: COLLAGENASE 30 GM TUBE TOP SCH (09:33)
--- NOTE | 2017-02-21 11:53 | CONS ---
Date/Time of Note Date/Time of Note DATE: 02/21/17 TIME: 11:49 Assessment/Plan Assessment/Plan Additional Assessment/Plan Ventilator settings; AC of 14, tidal volume 450, PEEP of 5, 30% FiO2. Next Patient is currently on Levophed at 25 mics per minute. Assessment and recommendations; 1. Patient admitted with severe sepsis from multiple decubitus ulcers, currently on broad spectrum antibiotic regimen. 2. Persistent hypotension on high-dose Levophed. 3. Chronic respiratory failure. 4. COPD. 5. Anemia and thrombocytopenia. 6. Likely left lower lobe lung malignancy, patient has been too unstable over the last several months to undergo any kind of further workup. 7. Severe generalized deconditioning. 8. Adynamic ileus. Patient on TPN. Continue current supportive care. Prognosis is poor on account of multiple comorbidities. Consultation Date/Type/Reason Admit Date/Time Feb 01, 2017 at 15:50 Initial Consult Date 02/09/17 Type of Consultation: Pulmonary/critical care Referring Provider: DRE LOABTO MD 24 HR Interval Summary Free Text/Dictation Patient's condition remains critical. Still requiring high-dose Levophed for blood pressure maintenance. She remains chronically ventilator dependent. General exam; elderly woman, appears quite emaciated, on ventilator via tracheostomy, awake and alert. Currently in no distress. Exam/Review of Systems Vital Signs Vitals Vital Signs Date Time Temp Pulse Resp B/P Pulse Ox O2 Delivery O2 Flow Rate FiO2 02/21/17 09:00 129 25 116/77 99 Mechanical Ventilator 02/21/17 08:00 101.0 02/21/17 05:16 30 Intake and Output 02/20/17 02/20/17 02/21/17 15:00 23:00 07:00 Intake Total 1332.975 ml 2651.25 ml 1573.75 ml Output Total 725 ml 1225 ml 1450 ml Balance 607.975 ml 1426.25 ml 123.75 ml Exam HEENT exam; supple neck, no JVD. No lymphadenopathy. Midline trachea. No thyromegaly. Tracheostomy in place. Patient has multiple carious teeth. Pupils are small bilaterally. Chest exam; diminished but clear breath sounds. S1-S2 audible, no murmurs. Regular rhythm. Abdomen exam; soft, slightly protuberant. G-tube in place. Bowel sounds are very sluggish. Extremity exam; no edema. Back examination; dressing applied over sacrum. COAL BAGGER exam; she is awake and follows simple commands. Results Result Diagram: 02/21/17 0644 02/21/17 0520 Results 24 hrs Laboratory Tests Test 02/20/17 12:40 02/20/17 16:55 02/20/17 21:46 02/21/17 01:31 Bedside Glucose 97 78 90 101 Test 02/21/17 04:33 02/21/17 05:20 02/21/17 06:44 02/21/17 09:38 Bedside Glucose 148 100 White Blood Count 33.4 #H Red Blood Count 2.89 L Hemoglobin 7.8 L 7.6 L Hematocrit 25.7 L 25.5 L Mean Corpuscular Volume 88.9 Mean Corpuscular Hemoglobin 27.0 L Mean Corpuscular Hemoglobin Concent 30.4 L Red Cell Distribution Width 18.6 H Platelet Count 73 L Mean Platelet Volume 9.4 Neutrophils % Segmented Neutrophils % (Manual) 74 Band Neutrophils % (Manual) 8 H Lymphocytes % Lymphocytes % (Manual) 10 L Monocytes % Monocytes % (Manual) 3 Eosinophils % Eosinophils % (Manual) 4 Basophils % Myelocytes % (Manual) 1 H Nucleated Red Blood Cells % 0.1 H Neutrophils # (Manual) 25.6 H Band Neutrophils # 2.6 H Absolute Lymphocytes (Manual) 3.3 H Lymphocytes # Monocytes # Absolute Monocytes (Manual) 1.0 H Eosinophils # Basophils # Myelocytes # 0.3 H Nucleated Red Blood Cells # Platelet Estimate DECREASED Dimorphic Red Blood Cells 1+ Polychromasia 1+ Anisocytosis 1+ Macrocytosis 1+ Sodium Level 148 H Potassium Level 3.7 Chloride Level 113 H Carbon Dioxide Level 22 Anion Gap 17 H Blood Urea Nitrogen 45 H Creatinine 1.05 H Glucose Level 88 # Calcium Level 9.7 Total Bilirubin 0.0 L Direct Bilirubin 0.00 Indirect Bilirubin 0.0 Aspartate Amino Transf (AST/SGOT) 23 Alanine Aminotransferase (ALT/SGPT) 21 Alkaline Phosphatase 268 H Total Protein 5.9 L Albumin 2.1 L Globulin 3.80 H Albumin/Globulin Ratio 0.55 Medications Medications Current Medications Ondansetron HCl (Zofran Inj) 4 mg Q6H PRN IV NAUSEA AND/OR VOMITING Last administered on 02/05/17t 09:36; Admin Dose 4 MG; Start 02/01/17 at 22:30 Acetaminophen (Tylenol Tab) 650 mg Q6H PRN PO PAIN LEVEL 1-3 OR FEVER Last administered on 02/19/17 04:25; Admin Dose 650 MG; Start 02/01/17 at 22:30; Status Future Hold Acetaminophen/ Hydrocodone Bitart ([place] (5/325)) 1 tab Q6H PRN PO MODERATE PAIN LEVEL 4-6 Last administered on 02/04/17 21:07; Admin Dose 1 TAB; Start at 22:30; Status Future hold Hydromorphone HCl (Dilaudid) 0.5 mg Q4H PRN IV SEVERE PAIN LEVEL 7-10 Last administered on 02/20/17 22:50; Admin Dose 0.5 MG; Start 02/01/17 at 22:30 Docusate Sodium (Colace) 100 mg Q12H PRN PO CONSTIPATION; Start 02/01/17 at 22: 30 Magnesium Hydroxide (Milk Of Mag) 30 ml DAILY PRN PO CONSTIPATION; Start at 22:30 Bisacodyl (Dulcolax) 5 mg DAILY PRN PO CONSTIPATION; Start 02/01/17 at 22:30 Zolpidem Tartrate (Ambien) 5 mg QHS PRN PO SLEEP; Start 02/01/17 at 22:30 Lansoprazole (Prevacid) 30 mg DAILY@06 GTB Last administered on 02/18/17 05:48 ; Admin Dose 30 MG; Start 02/02/17 at 06:00 Enoxaparin Sodium (Lovenox) 40 mg DAILY SC Last administered on 02/20/17 11:01 ; Admin Dose 40 MG; Start 02/02/17 at 09:00 Ascorbic Acid (Vitamin C) 500 mg BID GTB Last administered on 02/18/17 20:54; Admin Dose 500 MG; Start 02/02/17 at 09:00 Diazepam (Valium) 5 mg DAILY PRN GTB ANXIETY Last administered on 02/08/17 20: 27; Admin Dose 5 MG; Start 02/01/17 at 22:30 Duloxetine HCl (Cymbalta) 20 mg DAILY GTB Last administered on 02/18/17 08:45; Admin Dose 20 MG; Start 02/02/17 at 09:00 Multivitamins Therapeutic (Theragran) 1 tab DAILY GTB Last administered on 08:45; Admin Dose 1 TAB; Start 02/02/17 at 09:00 Zinc Sulfate (Zinc Sulfate) 220 mg DAILY GTB Last administered on 02/18/17 08: 45; Admin Dose 220 MG; Start 02/02/17 at 09:00 Lactobacillus Acidophilus (Florajen3 Capsule) 1 each TID NGT Last administered on 02/18/17 20:54; Admin Dose 1 EACH; Start 02/02/17 at 09:00 Lactulose (Enulose) 20 gm BID PO Last administered on 02/18/17 20:54; Admin Dose 20 GM; Start 02/02/17 at 09:00 Collagenase (Santyl) 1 applic DAILY TOP Last administered on 02/21/17 09:33; Admin Dose 1 APPLIC; Start 02/02/17 at 09:00 Collagenase 1 applic 1 applic PRN PRN TOP PRN; Start 02/02/17 at 04:00 Linezolid 300 ml @ 300 mls/hr Q12 IVPB Last administered on 02/21/17 09:13; Admin Dose 300 MLS/HR; Start 02/09/17 at 15:00 Metronidazole 100 ml @ 100 mls/hr Q8 IVPB Last administered on 02/21/17 05:34 ; Admin Dose 100 MLS/HR; Start 02/09/17 at 14:00 Colistimethate Sodium/Sodium Chloride (Coly-Mycin/NS) 100 ml @ 200 mls/hr Q12H IVPB Last administered on 02/21/17 03:28; Admin Dose 200 MLS/HR; Start at 04:00 Sodium Hypochlorite (Dakin'S (1/4 Strength)) 1 applic DAILY IRR Last administered on 02/20/17 09:30; Admin Dose 1 APPLIC; Start 02/10/17 at 13:30 IV Flush (NS 10 ml) 10 ml PRN PRN IV FLUSH LINE; Start 02/10/17 at 15:30 Mupirocin (Bactroban) 1 applic BID TOP Last administered on 02/21/17 09:32; Admin Dose 1 APPLIC; Start 02/11/17 at 14:00 Dextrose 25 ml 25 ml IACHS PRN IV DECREASED GLUCOSE Last administered on 10:01; Admin Dose 25 ML; Start 02/13/17 at 08:30 Total Parenteral Nutrition (Tpn) 1,000 ml @ 60 mls/hr [id number] IV Last administered on 02/21/17 06:01; Admin Dose 60 MLS/HR; Start 02/13/17 at 16:00 Dextrose (D50w Syringe) 50 ml IV PRN IV DECREASED GLUCOSE Last administered on 02/13/17 18:07; Admin Dose 50 ML; Start 02/13/17 at 14:30 Fentanyl (Duragesic 25 Mcg/Hr Patch) 1 patch Q72H TRANSDERM Last administered on 02/20/17 17:54; Admin Dose 1 PATCH; Start 02/14/17 at 15:30 IV Flush (NS 10 ml) 10 ml PRN PRN IV IV PROTOCOL; Start 02/15/17 at 21:30 Diagnostic Test (Pha) 1 ea 1 ea Q4 XX Last administered on 02/21/17 09:00; Admin Dose 1 EA; Start 02/20/17 at 09:00 Dextrose 1,000 ml @ 50 mls/hr Q20H IV Last administered on 02/21/17 04:48; Admin Dose 50 MLS/HR; Start 02/20/17 at 09:30 Norepinephrine 16 mg/Dextrose 500 ml @ 0 mls/hr TITRATE IV Last administered on 02/21/17 03:04; Admin Dose 52.5 MLS/HR; Start 02/20/17 at 11:30 Phenylephrine HCl 250 ml @ 75 mls/hr TITRATE IV ; Start 02/20/17 at 15:00 Acetaminophen 100 ml @ 400 mls/hr Q6H PRN IVPB FEVER Last administered on 07:03; Admin Dose 400 MLS/HR; Start 02/20/17 at 17:30 Caspofungin 50 mg/ Sodium Chloride 250 ml @ 250 mls/hr Q24H IVPB ; Start at 13:00 Caspofungin/ Sodium Chloride (Cancidas/NS) 250 ml @ 250 mls/hr ONCE IVPB ; Start 02/21/17 at 13:30; Stop 02/21/17 at 14:29 REGINE BUCKLEY Feb 21, 2017 11:53
--- NOTE | 2017-02-21 13:05 | PN ---
DATE: 02/21/2017 INFECTIOUS DISEASE PROGRESS NOTE: SUBJECTIVE DATA: No events overnight. The patient remains on Levophed drip. She spiked a fever of 102.5 this morning. Currently 101, pulse 128, respirations 27, blood pressure 107/74, saturation 98 percent. WBC 33.4, H and H are 7.8 and 25.7, platelets 73, bands 8, BUN 45, creatinine 1.05. INDWELLINGS: Trach, PEG, NG tube, George, PICC line placed on February 10. ANTIMICROBIALS: Zyvox, colistin, Flagyl. PHYSICAL EXAMINATION: GENERAL: This is a cachectic, chronically ill-appearing, elderly woman, who is in no distress. HEENT: Head atraumatic, normocephalic. Sclerae anicteric. Buccal mucosa dry. NECK: Supple. Tracheostomy present. CHEST: Rise symmetrical. Breath sounds diminished at the bases. HEART: S1, S2. ABDOMEN: Soft, bowel sounds hypoactive. EXTREMITIES: With trace edema. SKIN: With unstageable wounds. ASSESSMENT: 1. Severe sepsis with shock and multisystem organ failure. 2. Ileus, no evidence of small bowel obstruction as per small bowel follow-through test. 3. Multidrug resistant urinary tract infection. 4. Multiple wounds that grew multidrug resistant organisms with possible osteomyelitis of the sacrum. 5. Methicillin resistant Staphylococcus aureus nares colonization. 6. Lung cancer with possible obstructive pneumonia. 7. Chronic respiratory failure. 8. Cachexia. 9. History of Clostridium difficile colitis. 10. ALLERGY TO PENICILLIN. PLAN: The patient is doing poorly. Hemodynamically unstable. Covered with broad-spectrum antibiotics. We are going to add empiric antifungal coverage with Cancidas. We will repeat cultures today. Overall prognosis poor. THE PATIENT IS A CHEMICAL CODE. Dictated By: Johnny Chapa NP /[email or web address] /Document#: [id number]
[2017-02-21] MEDS ORDERED: CASPOFUNGIN 70 MG in SOD CHLORIDE 0.9% 250 ML IVPB SCH (13:30)
--- NOTE | 2017-02-21 13:38 | CONS ---
Date/Time of Note Date/Time of Note DATE: 02/21/17 TIME: 13:31 Assessment/Plan Assessment/Plan Additional Assessment/Plan Severe shock, likely multifactorial in etiology Sepsis Sinus tachycardia Respiratory failure Acute decompensated diastolic congestive heart failure Pulmonary hypertension Preserved ejection fraction Tricuspid valve regurgitation Lung cancer -Patient with improvement in heart rates and pressor requirements seem to be decreasing. Only only on levophed with good urine output. Continue antibiotics as per infectious disease, IV fluids as per our nephrology colleagues. IV pressors to maintain SBP greater than 90 and/or map above 60 and titrate as needed. Continue to hold any antihypertensives or AV jesenia blocking agents. Greater than 35 minutes of critical care time spent in care and documentation of this patient. Consultation Date/Type/Reason Admit Date/Time Feb 01, 2017 at 15:50 Initial Consult Date 02/01/17 Type of Consultation: cv Referring Provider: DRE LOBATO MD 24 HR Interval Summary Free Text/Dictation Patient seen and examined. Discussion with nursing staff, pressor requirements decreasing. Good urine output. Patient unable to give history at the current time Subjective hx not possible: pt critical status Exam/Review of Systems Vital Signs Vitals Vital Signs Date Time Temp Pulse Resp B/P Pulse Ox O2 Delivery O2 Flow Rate FiO2 02/21/17 12:00 107 02/21/17 12:00 30 02/21/17 09:00 25 116/77 99 Mechanical Ventilator 02/21/17 08:00 101.0 Intake and Output 02/20/17 02/20/17 02/21/17 15:00 23:00 07:00 Intake Total 1332.975 ml 2651.25 ml 1573.75 ml Output Total 725 ml 1225 ml 1450 ml Balance 607.975 ml 1426.25 ml 123.75 ml Exam Awake, not following commands, no apparent distress Head: normocephalic Neck: other (Tracheostomy) Respiratory: other (Coarse breath sounds bilaterally, decreased at the bases) Cardiovascular: other (S1-S2 heard), regular rate and rhythm Gastrointestinal: bowel sounds, distended, other (Grimacing with palpation), soft Extremities: edema Results Result Diagram: 02/21/17 0644 02/21/17 0520 Results 24 hrs Laboratory Tests Test 02/20/17 16:55 02/20/17 21:46 02/21/17 01:31 02/21/17 04:33 Bedside Glucose 78 90 101 148 Test 02/21/17 05:20 02/21/17 06:44 02/21/17 09:38 White Blood Count 33.4 #H Red Blood Count 2.89 L Hemoglobin 7.8 L 7.6 L Hematocrit 25.7 L 25.5 L Mean Corpuscular Volume 88.9 Mean Corpuscular Hemoglobin 27.0 L Mean Corpuscular Hemoglobin Concent 30.4 L Red Cell Distribution Width 18.6 H Platelet Count 73 L Mean Platelet Volume 9.4 Neutrophils % Segmented Neutrophils % (Manual) 74 Band Neutrophils % (Manual) 8 H Lymphocytes % Lymphocytes % (Manual) 10 L Monocytes % Monocytes % (Manual) 3 Eosinophils % Eosinophils % (Manual) 4 Basophils % Myelocytes % (Manual) 1 H Nucleated Red Blood Cells % 0.1 H Neutrophils # (Manual) 25.6 H Band Neutrophils # 2.6 H Absolute Lymphocytes (Manual) 3.3 H Lymphocytes # Monocytes # Absolute Monocytes (Manual) 1.0 H Eosinophils # Basophils # Myelocytes # 0.3 H Nucleated Red Blood Cells # Platelet Estimate DECREASED Dimorphic Red Blood Cells 1+ Polychromasia 1+ Anisocytosis 1+ Macrocytosis 1+ Sodium Level 148 H Potassium Level 3.7 Chloride Level 113 H Carbon Dioxide Level 22 Anion Gap 17 H Blood Urea Nitrogen 45 H Creatinine 1.05 H Glucose Level 88 # Calcium Level 9.7 Total Bilirubin 0.0 L Direct Bilirubin 0.00 Indirect Bilirubin 0.0 Aspartate Amino Transf (AST/SGOT) 23 Alanine Aminotransferase (ALT/SGPT) 21 Alkaline Phosphatase 268 H Total Protein 5.9 L Albumin 2.1 L Globulin 3.80 H Albumin/Globulin Ratio 0.55 Bedside Glucose 100 Medications Medications Current Medications Ondansetron HCl (Zofran Inj) 4 mg Q6H PRN IV NAUSEA AND/OR VOMITING Last administered on 02/05/17 09:36; Admin Dose 4 MG; Start 02/01/17 at 22:30 Acetaminophen (Tylenol Tab) 650 mg Q6H PRN PO PAIN LEVEL 1-3 OR FEVER Last administered on 02/19/17 04:25; Admin Dose 650 MG; Start 02/01/17 at 22:30; Status Future Hold Acetaminophen/ Hydrocodone Bitart ([place] (5/325)) 1 tab Q6H PRN PO MODERATE PAIN LEVEL 4-6 Last administered on 02/04/17 21:07; Admin Dose 1 TAB; Start at 22:30; Status Future hold Hydromorphone HCl (Dilaudid) 0.5 mg Q4H PRN IV SEVERE PAIN LEVEL 7-10 Last administered on 02/20/17 22:50; Admin Dose 0.5 MG; Start 02/01/17 at 22:30 Docusate Sodium (Colace) 100 mg Q12H PRN PO CONSTIPATION; Start 02/01/17 at 22: 30 Magnesium Hydroxide (Milk Of Mag) 30 ml DAILY PRN PO CONSTIPATION; Start at 22:30 Bisacodyl (Dulcolax) 5 mg DAILY PRN PO CONSTIPATION; Start 02/01/17 at 22:30 Zolpidem Tartrate (Ambien) 5 mg QHS PRN PO SLEEP; Start 02/01/17 at 22:30 Lansoprazole (Prevacid) 30 mg DAILY@06 GTB Last administered on 02/18/17 05:48 ; Admin Dose 30 MG; Start 02/02/17 at 06:00 Enoxaparin Sodium (Lovenox) 40 mg DAILY SC Last administered on 02/20/17 11:01 ; Admin Dose 40 MG; Start 02/02/17 at 09:00 Ascorbic Acid (Vitamin C) 500 mg BID GTB Last administered on 02/18/17 20:54; Admin Dose 500 MG; Start 02/02/17 at 09:00 Diazepam (Valium) 5 mg DAILY PRN GTB ANXIETY Last administered on 02/08/17 20: 27; Admin Dose 5 MG; Start 02/01/17 at 22:30 Duloxetine HCl (Cymbalta) 20 mg DAILY GTB Last administered on 02/18/17 08:45; Admin Dose 20 MG; Start 02/02/17 at 09:00 Multivitamins Therapeutic (Theragran) 1 tab DAILY GTB Last administered on 08:45; Admin Dose 1 TAB; Start 02/02/17 at 09:00 Zinc Sulfate (Zinc Sulfate) 220 mg DAILY GTB Last administered on 02/18/17 08: 45; Admin Dose 220 MG; Start 02/02/17 at 09:00 Lactobacillus Acidophilus (Florajen3 Capsule) 1 each TID NGT Last administered on 02/18/17 20:54; Admin Dose 1 EACH; Start 02/02/17 at 09:00 Lactulose (Enulose) 20 gm BID PO Last administered on 02/18/17 20:54; Admin Dose 20 GM; Start 02/02/17 at 09:00 Collagenase (Santyl) 1 applic DAILY TOP Last administered on 02/21/17 09:33; Admin Dose 1 APPLIC; Start 02/02/17 at 09:00 Collagenase 1 applic 1 applic PRN PRN TOP PRN; Start 02/02/17 at 04:00 Linezolid 300 ml @ 300 mls/hr Q12 IVPB Last administered on 02/21/17 09:13; Admin Dose 300 MLS/HR; Start 02/09/17 at 15:00 Metronidazole 100 ml @ 100 mls/hr Q8 IVPB Last administered on 02/21/17 05:34 ; Admin Dose 100 MLS/HR; Start 02/09/17 at 14:00 Colistimethate Sodium/Sodium Chloride (Coly-Mycin/NS) 100 ml @ 200 mls/hr Q12H IVPB Last administered on 02/21/17 03:28; Admin Dose 200 MLS/HR; Start at 04:00 Sodium Hypochlorite ([place] (1/4 Strength)) 1 applic DAILY IRR Last administered on 02/20/17 09:30; Admin Dose 1 APPLIC; Start 02/10/17 at 13:30 IV Flush (NS 10 ml) 10 ml PRN PRN IV FLUSH LINE; Start 02/10/17 at 15:30 Mupirocin (Bactroban) 1 applic BID TOP Last administered on 02/21/17 09:32; Admin Dose 1 APPLIC; Start 02/11/17 at 14:00 Dextrose 25 ml 25 ml IACHS PRN IV DECREASED GLUCOSE Last administered on 10:01; Admin Dose 25 ML; Start 02/13/17 at 08:30 Total Parenteral Nutrition (Tpn) 1,000 ml @ 60 mls/hr [id number] IV Last administered on 02/21/17 06:01; Admin Dose 60 MLS/HR; Start 02/13/17 at 16:00 Dextrose (D50w Syringe) 50 ml IV PRN IV DECREASED GLUCOSE Last administered on 02/13/17 18:07; Admin Dose 50 ML; Start 02/13/17 at 14:30 Fentanyl (Duragesic 25 Mcg/Hr Patch) 1 patch Q72H TRANSDERM Last administered on 02/20/17 17:54; Admin Dose 1 PATCH; Start 02/14/17 at 15:30 IV Flush (NS 10 ml) 10 ml PRN PRN IV IV PROTOCOL; Start 02/15/17 at 21:30 Diagnostic Test (Pha) 1 ea 1 ea Q4 XX Last administered on 02/21/17 09:00; Admin Dose 1 EA; Start 02/20/17 at 09:00 Dextrose 1,000 ml @ 50 mls/hr Q20H IV Last administered on 02/21/17 04:48; Admin Dose 50 MLS/HR; Start 02/20/17 at 09:30 Norepinephrine 16 mg/Dextrose 500 ml @ 0 mls/hr TITRATE IV Last administered on 02/21/17 03:04; Admin Dose 52.5 MLS/HR; Start 02/20/17 at 11:30 Phenylephrine HCl 250 ml @ 75 mls/hr TITRATE IV ; Start 02/20/17 at 15:00 Acetaminophen 100 ml @ 400 mls/hr Q6H PRN IVPB FEVER Last administered on 07:03; Admin Dose 400 MLS/HR; Start 02/20/17 at 17:30 Caspofungin 50 mg/ Sodium Chloride 250 ml @ 250 mls/hr Q24H IVPB ; Start at 13:00 Caspofungin/ Sodium Chloride (Cancidas/NS) 250 ml @ 250 mls/hr ONCE IVPB ; Start 02/21/17 at 13:30; Stop 02/21/17 at 14:29 Artemio Tipton DO Feb 21, 2017 13:38
--- NOTE | 2017-02-21 16:23 | CONS ---
Date/Time of Note Date/Time of Note DATE: 02/21/17 TIME: 16:21 Assessment/Plan Assessment/Plan Additional Assessment/Plan 1. 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 Shock multifactorial on levophed 3. Recurrent Multidrug Resistant Urinary tract infection 4. Sacral wound 5. Chronic resp failure 6.S/P Tracheostomy, S/p PEG tube placement 7. Lung CA- Squamous Cell CA 8. Hypercalcemia due to squamous cell CA of lung- s/p Pamidronate 30mg IV on Plan: -Continue current IV abx , ID following, pt is on levophed for BP support, not doing well, chemical code only, antifungal coverage added today - on IVF and TPN -S/p 3 % saline on02/09/17- s/p tolvaptan 15 mg [id number] x 1 dose on 02/13/17- Na improved to 138 on 02/16/17 then again trending up to 148 today - Ca came down to 11.4- s/p One dose of pamidronate 30mg IV x 1 on 02/15/17- no normal -will follow up Consultation Date/Type/Reason Admit Date/Time Feb 01, 2017 at 15:50 Initial Consult Date 02/08/17 Type of Consultation: NEPHROLOGY Referring Provider: DRE LOBATO MD 24 HR Interval Summary Free Text/Dictation pt is not doing well, BP labile, HR upto 130-140s, Exam/Review of Systems Vital Signs Vitals Vital Signs Date Time Temp Pulse Resp B/P Pulse Ox O2 Delivery O2 Flow Rate FiO2 02/21/17 15:20 93 30 95 30 02/21/17 14:15 111/74 02/21/17 14:00 Mechanical Ventilator 02/21/17 08:00 101.0 Intake and Output 02/20/17 02/20/17 02/21/17 15:00 23:00 07:00 Intake Total 1332.975 ml 2651.25 ml 1573.75 ml Output Total 725 ml 1225 ml 1450 ml Balance 607.975 ml 1426.25 ml 123.75 ml Exam Constitutional: non-verbal ENMT: other (+ trachoestomy on ventilator ) Neck: supple Respiratory: congested cough, crackles/rales, diminished breath sounds, other ( Bilateral Coarse BS+) Cardiovascular: regular rate and rhythm Gastrointestinal: distended, soft Musculoskeletal: other (cachectic LE ) Neurological: other (Non verbal ) Results Result Diagram: 02/21/17 0644 02/21/17 0520 Results 24 hrs Laboratory Tests Test 02/20/17 16:55 02/20/17 21:46 02/21/17 01:31 02/21/17 04:33 Bedside Glucose 78 90 101 148 Test 02/21/17 05:20 02/21/17 06:44 02/21/17 09:38 White Blood Count 33.4 #H Red Blood Count 2.89 L Hemoglobin 7.8 L 7.6 L Hematocrit 25.7 L 25.5 L Mean Corpuscular Volume 88.9 Mean Corpuscular Hemoglobin 27.0 L Mean Corpuscular Hemoglobin Concent 30.4 L Red Cell Distribution Width 18.6 H Platelet Count 73 L Mean Platelet Volume 9.4 Neutrophils % Segmented Neutrophils % (Manual) 74 Band Neutrophils % (Manual) 8 H Lymphocytes % Lymphocytes % (Manual) 10 L Monocytes % Monocytes % (Manual) 3 Eosinophils % Eosinophils % (Manual) 4 Basophils % Myelocytes % (Manual) 1 H Nucleated Red Blood Cells % 0.1 H Neutrophils # (Manual) 25.6 H Band Neutrophils # 2.6 H Absolute Lymphocytes (Manual) 3.3 H Lymphocytes # Monocytes # Absolute Monocytes (Manual) 1.0 H Eosinophils # Basophils # Myelocytes # 0.3 H Nucleated Red Blood Cells # Platelet Estimate DECREASED Dimorphic Red Blood Cells 1+ Polychromasia 1+ Anisocytosis 1+ Macrocytosis 1+ Sodium Level 148 H Potassium Level 3.7 Chloride Level 113 H Carbon Dioxide Level 22 Anion Gap 17 H Blood Urea Nitrogen 45 H Creatinine 1.05 H Glucose Level 88 # Calcium Level 9.7 Total Bilirubin 0.0 L Direct Bilirubin 0.00 Indirect Bilirubin 0.0 Aspartate Amino Transf (AST/SGOT) 23 Alanine Aminotransferase (ALT/SGPT) 21 Alkaline Phosphatase 268 H Total Protein 5.9 L Albumin 2.1 L Globulin 3.80 H Albumin/Globulin Ratio 0.55 Bedside Glucose 100 Medications Medications Current Medications Ondansetron HCl (Zofran Inj) 4 mg Q6H PRN IV NAUSEA AND/OR VOMITING Last administered on 8/21/17at 09:36; Admin Dose 4 MG; Start 02/01/17 at 22:30 Acetaminophen (Tylenol Tab) 650 mg Q6H PRN PO PAIN LEVEL 1-3 OR FEVER Last administered on 02/19/17 04:25; Admin Dose 650 MG; Start 02/01/17 at 22:30; Status Future Hold Acetaminophen/ Hydrocodone Bitart ([place] (5/325)) 1 tab Q6H PRN PO MODERATE PAIN LEVEL 4-6 Last administered on 02/04/17 21:07; Admin Dose 1 TAB; Start at 22:30; Status Future hold Hydromorphone HCl (Dilaudid) 0.5 mg Q4H PRN IV SEVERE PAIN LEVEL 7-10 Last administered on 02/20/17 22:50; Admin Dose 0.5 MG; Start 02/01/17 at 22:30 Docusate Sodium (Colace) 100 mg Q12H PRN PO CONSTIPATION; Start 02/01/17 at 22: 30 Magnesium Hydroxide (Milk Of Mag) 30 ml DAILY PRN PO CONSTIPATION; Start at 22:30 Bisacodyl (Dulcolax) 5 mg DAILY PRN PO CONSTIPATION; Start 02/01/17 at 22:30 Zolpidem Tartrate (Ambien) 5 mg QHS PRN PO SLEEP; Start 02/01/17 at 22:30 Lansoprazole (Prevacid) 30 mg DAILY@06 GTB Last administered on 02/18/17 05:48 ; Admin Dose 30 MG; Start 02/02/17 at 06:00 Enoxaparin Sodium (Lovenox) 40 mg DAILY SC Last administered on 02/20/17 11:01 ; Admin Dose 40 MG; Start 02/02/17 at 09:00 Ascorbic Acid (Vitamin C) 500 mg BID GTB Last administered on 02/18/17 20:54; Admin Dose 500 MG; Start 02/02/17 at 09:00 Diazepam (Valium) 5 mg DAILY PRN GTB ANXIETY Last administered on 02/08/17 20: 27; Admin Dose 5 MG; Start 02/01/17 at 22:30 Duloxetine HCl (Cymbalta) 20 mg DAILY GTB Last administered on 02/18/17 08:45; Admin Dose 20 MG; Start 02/02/17 at 09:00 Multivitamins Therapeutic (Theragran) 1 tab DAILY GTB Last administered on 08:45; Admin Dose 1 TAB; Start 02/02/17 at 09:00 Zinc Sulfate (Zinc Sulfate) 220 mg DAILY GTB Last administered on 02/18/17 08: 45; Admin Dose 220 MG; Start 02/02/17 at 09:00 Lactobacillus Acidophilus (Florajen3 Capsule) 1 each TID NGT Last administered on 02/18/17 20:54; Admin Dose 1 EACH; Start 02/02/17 at 09:00 Lactulose (Enulose) 20 gm BID PO Last administered on 02/18/17 20:54; Admin Dose 20 GM; Start 02/02/17 at 09:00 Collagenase (Santyl) 1 applic DAILY TOP Last administered on 02/21/17 09:33; Admin Dose 1 APPLIC; Start 02/02/17 at 09:00 Collagenase 1 applic 1 applic PRN PRN TOP PRN; Start 02/02/17 at 04:00 Linezolid 300 ml @ 300 mls/hr Q12 IVPB Last administered on 02/21/17 09:13; Admin Dose 300 MLS/HR; Start 02/09/17 at 15:00 Metronidazole 100 ml @ 100 mls/hr Q8 IVPB Last administered on 02/21/17 14:37 ; Admin Dose 100 MLS/HR; Start 02/09/17 at 14:00 Colistimethate Sodium/Sodium Chloride (Coly-Mycin/NS) 100 ml @ 200 mls/hr Q12H IVPB Last administered on 02/21/17 03:28; Admin Dose 200 MLS/HR; Start at 04:00 Sodium Hypochlorite (Dakin'S (1/4 Strength)) 1 applic DAILY IRR Last administered on 02/20/17 09:30; Admin Dose 1 APPLIC; Start 02/10/17 at 13:30 IV Flush (NS 10 ml) 10 ml PRN PRN IV FLUSH LINE; Start 02/10/17 at 15:30 Mupirocin (Bactroban) 1 applic BID TOP Last administered on 02/21/17 09:32; Admin Dose 1 APPLIC; Start 02/11/17 at 14:00 Dextrose 25 ml 25 ml IACHS PRN IV DECREASED GLUCOSE Last administered on 10:01; Admin Dose 25 ML; Start 02/13/17 at 08:30 Total Parenteral Nutrition (Tpn) 1,000 ml @ 60 mls/hr [id number] IV Last administered on 02/21/17 06:01; Admin Dose 60 MLS/HR; Start 02/13/17 at 16:00 Dextrose (D50w Syringe) 50 ml IV PRN IV DECREASED GLUCOSE Last administered on 02/13/17 18:07; Admin Dose 50 ML; Start 02/13/17 at 14:30 Fentanyl (Duragesic 25 Mcg/Hr Patch) 1 patch Q72H TRANSDERM Last administered on 02/20/17 17:54; Admin Dose 1 PATCH; Start 02/14/17 at 15:30 IV Flush (NS 10 ml) 10 ml PRN PRN IV IV PROTOCOL; Start 02/15/17 at 21:30 Diagnostic Test (Pha) 1 ea 1 ea Q4 XX Last administered on 02/21/17 09:00; Admin Dose 1 EA; Start 02/20/17 at 09:00 Dextrose 1,000 ml @ 50 mls/hr Q20H IV Last administered on 02/21/17 04:48; Admin Dose 50 MLS/HR; Start 02/20/17 at 09:30 Norepinephrine 16 mg/Dextrose 500 ml @ 0 mls/hr TITRATE IV Last administered on 02/21/17 03:04; Admin Dose 52.5 MLS/HR; Start 02/20/17 at 11:30 Phenylephrine HCl 250 ml @ 75 mls/hr TITRATE IV ; Start 02/20/17 at 15:00 Acetaminophen 100 ml @ 400 mls/hr Q6H PRN IVPB FEVER Last administered on 07:03; Admin Dose 400 MLS/HR; Start 02/20/17 at 17:30 Caspofungin/ Sodium Chloride (Cancidas/NS) 250 ml @ 250 mls/hr Q24H IVPB ; Start 02/22/17 at 13:00 DIONNE SAUCEDA MD Feb 21, 2017 16:23
--- NOTE | 2017-02-21 17:32 | PN ---
Date/Time of Note Date/Time of Note DATE: 02/21/17 TIME: 17:28 Assessment/Plan VTE Prophylaxis VTE Prophylaxis Intervention: other Lines/Catheters IV C[facility]ter Type (from [facility]): PICC Line Urinary Cath still in place: Yes Assessment/Plan Assessment/Plan Small bowel obstruction. Continue G-tube to low wall suctioning. Dr Gonzales is following in gastroenterology consultation. -Sepsis, most likely secondary to urinary tract infection and possible postobstructive pneumonia. Dr. Coleman is following infection disease consultation, continue antibiotics per ID. -Hyponatremia, Dr. Zapata is following a nephrology consultation, continue IV fluids per renal. 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 -Ventilator dependent respiratory failure with tracheostomy, continue breathing treatments. 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 Subjective 24 Hr Interval Summary Free Text/Dictation awake/alert, abdominal distention notes, sp abd series yesterday, surgery follows. On levofed 23 mcg/hr. afebrile. Constitutional: requiring IVF, requiring O2 Respiratory: no complaints Cardiovascular: no complaints Gastrointestinal: no complaints Exam/Review of Systems Vital Signs Vitals Vital Signs Date Time Temp Pulse Resp B/P Pulse Ox O2 Delivery O2 Flow Rate FiO2 02/21/17 16:00 91 02/21/17 15:20 25 100 30 02/21/17 14:15 111/74 02/21/17 14:00 Mechanical Ventilator 02/21/17 08:00 101.0 Intake and Output 02/20/17 02/20/17 02/21/17 15:00 23:00 07:00 Intake Total 1332.975 ml 2651.25 ml 1573.75 ml Output Total 725 ml 1225 ml 1450 ml Balance 607.975 ml 1426.25 ml 123.75 ml Exam Constitutional: alert Respiratory: diminished breath sounds Cardiovascular: nl pulses, regular rate and rhythm Gastrointestinal: distended, soft Musculoskeletal: muscle weakness Extremities: normal pulses Neurological: confused Skin: other Results Result Diagram: 02/21/17 0644 02/21/17 0520 Results 24 hrs Laboratory Tests Test 02/20/17 21:46 02/21/17 01:31 02/21/17 04:33 02/21/17 05:20 Bedside Glucose 90 101 148 White Blood Count 33.4 #H Red Blood Count 2.89 L Hemoglobin 7.8 L Hematocrit 25.7 L Mean Corpuscular Volume 88.9 Mean Corpuscular Hemoglobin 27.0 L Mean Corpuscular Hemoglobin Concent 30.4 L Red Cell Distribution Width 18.6 H Platelet Count 73 L Mean Platelet Volume 9.4 Neutrophils % Segmented Neutrophils % (Manual) 74 Band Neutrophils % (Manual) 8 H Lymphocytes % Lymphocytes % (Manual) 10 L Monocytes % Monocytes % (Manual) 3 Eosinophils % Eosinophils % (Manual) 4 Basophils % Myelocytes % (Manual) 1 H Nucleated Red Blood Cells % 0.1 H Neutrophils # (Manual) 25.6 H Band Neutrophils # 2.6 H Absolute Lymphocytes (Manual) 3.3 H Lymphocytes # Monocytes # Absolute Monocytes (Manual) 1.0 H Eosinophils # Basophils # Myelocytes # 0.3 H Nucleated Red Blood Cells # Platelet Estimate DECREASED Dimorphic Red Blood Cells 1+ Polychromasia 1+ Anisocytosis 1+ Macrocytosis 1+ Sodium Level 148 H Potassium Level 3.7 Chloride Level 113 H Carbon Dioxide Level 22 Anion Gap 17 H Blood Urea Nitrogen 45 H Creatinine 1.05 H Glucose Level 88 # Calcium Level 9.7 Total Bilirubin 0.0 L Direct Bilirubin 0.00 Indirect Bilirubin 0.0 Aspartate Amino Transf (AST/SGOT) 23 Alanine Aminotransferase (ALT/SGPT) 21 Alkaline Phosphatase 268 H Total Protein 5.9 L Albumin 2.1 L Globulin 3.80 H Albumin/Globulin Ratio 0.55 Test 02/21/17 06:44 02/21/17 09:38 Hemoglobin 7.6 L Hematocrit 25.5 L Bedside Glucose 100 Medications Medications Current Medications Ondansetron HCl (Zofran Inj) 4 mg Q6H PRN IV NAUSEA AND/OR VOMITING Last administered on 02/05/17 09:36; Admin Dose 4 MG; Start 02/01/17 at 22:30 Acetaminophen (Tylenol Tab) 650 mg Q6H PRN PO PAIN LEVEL 1-3 OR FEVER Last administered on 02/19/17 04:25; Admin Dose 650 MG; Start 02/01/17 at 22:30; Status Future Hold Acetaminophen/ Hydrocodone Bitart ([place] (5/325)) 1 tab Q6H PRN PO MODERATE PAIN LEVEL 4-6 Last administered on 02/04/17 21:07; Admin Dose 1 TAB; Start at 22:30; Status Future hold Hydromorphone HCl (Dilaudid) 0.5 mg Q4H PRN IV SEVERE PAIN LEVEL 7-10 Last administered on 02/20/17 22:50; Admin Dose 0.5 MG; Start 02/01/17 at 22:30 Docusate Sodium (Colace) 100 mg Q12H PRN PO CONSTIPATION; Start 02/01/17 at 22: 30 Magnesium Hydroxide (Milk Of Mag) 30 ml DAILY PRN PO CONSTIPATION; Start at 22:30 Bisacodyl (Dulcolax) 5 mg DAILY PRN PO CONSTIPATION; Start 02/01/17 at 22:30 Zolpidem Tartrate (Ambien) 5 mg QHS PRN PO SLEEP; Start 02/01/17 at 22:30 Lansoprazole (Prevacid) 30 mg DAILY@06 GTB Last administered on 02/18/17 05:48 ; Admin Dose 30 MG; Start 02/02/17 at 06:00 Enoxaparin Sodium (Lovenox) 40 mg DAILY SC Last administered on 02/20/17 11:01 ; Admin Dose 40 MG; Start 02/02/17 at 09:00 Ascorbic Acid (Vitamin C) 500 mg BID GTB Last administered on 02/18/17 20:54; Admin Dose 500 MG; Start 02/02/17 at 09:00 Diazepam (Valium) 5 mg DAILY PRN GTB ANXIETY Last administered on 02/08/17 20: 27; Admin Dose 5 MG; Start 02/01/17 at 22:30 Duloxetine HCl (Cymbalta) 20 mg DAILY GTB Last administered on 02/18/17 08:45; Admin Dose 20 MG; Start 02/02/17 at 09:00 Multivitamins Therapeutic (Theragran) 1 tab DAILY GTB Last administered on 08:45; Admin Dose 1 TAB; Start 02/02/17 at 09:00 Zinc Sulfate (Zinc Sulfate) 220 mg DAILY GTB Last administered on 02/18/17 08: 45; Admin Dose 220 MG; Start 02/02/17 at 09:00 Lactobacillus Acidophilus (Florajen3 Capsule) 1 each TID NGT Last administered on 02/18/17 20:54; Admin Dose 1 EACH; Start 02/02/17 at 09:00 Lactulose (Enulose) 20 gm BID PO Last administered on 02/18/17 20:54; Admin Dose 20 GM; Start 02/02/17 at 09:00 Collagenase (Santyl) 1 applic DAILY TOP Last administered on 02/21/17 09:33; Admin Dose 1 APPLIC; Start 02/02/17 at 09:00 Collagenase 1 applic 1 applic PRN PRN TOP PRN; Start 02/02/17 at 04:00 Linezolid 300 ml @ 300 mls/hr Q12 IVPB Last administered on 02/21/17 09:13; Admin Dose 300 MLS/HR; Start 02/09/17 at 15:00 Metronidazole 100 ml @ 100 mls/hr Q8 IVPB Last administered on 02/21/17 14:37 ; Admin Dose 100 MLS/HR; Start 02/09/17 at 14:00 Colistimethate Sodium/Sodium Chloride (Coly-Mycin/NS) 100 ml @ 200 mls/hr Q12H IVPB Last administered on 02/21/17 16:21; Admin Dose 200 MLS/HR; Start at 04:00 Sodium Hypochlorite (Dakin'S (1/4 Strength)) 1 applic DAILY IRR Last administered on 02/20/17 09:30; Admin Dose 1 APPLIC; Start 02/10/17 at 13:30 IV Flush (NS 10 ml) 10 ml PRN PRN IV FLUSH LINE; Start 02/10/17 at 15:30 Mupirocin (Bactroban) 1 applic BID TOP Last administered on 02/21/17 09:32; Admin Dose 1 APPLIC; Start 02/11/17 at 14:00 Dextrose 25 ml 25 ml IACHS PRN IV DECREASED GLUCOSE Last administered on 10:01; Admin Dose 25 ML; Start 02/13/17 at 08:30 Total Parenteral Nutrition (Tpn) 1,000 ml @ 60 mls/hr [id number] IV Last administered on 02/21/17 06:01; Admin Dose 60 MLS/HR; Start 02/13/17 at 16:00 Dextrose (D50w Syringe) 50 ml IV PRN IV DECREASED GLUCOSE Last administered on 02/13/17 18:07; Admin Dose 50 ML; Start 02/13/17 at 14:30 Fentanyl (Duragesic 25 Mcg/Hr Patch) 1 patch Q72H TRANSDERM Last administered on 02/20/17 17:54; Admin Dose 1 PATCH; Start 02/14/17 at 15:30 IV Flush (NS 10 ml) 10 ml PRN PRN IV IV PROTOCOL; Start 02/15/17 at 21:30 Diagnostic Test (Pha) 1 ea 1 ea Q4 XX Last administered on 02/21/17 16:24; Admin Dose 1 EA; Start 02/20/17 at 09:00 Dextrose 1,000 ml @ 50 mls/hr Q20H IV Last administered on 02/21/17 04:48; Admin Dose 50 MLS/HR; Start 02/20/17 at 09:30 Norepinephrine 16 mg/Dextrose 500 ml @ 0 mls/hr TITRATE IV Last administered on 02/21/17 03:04; Admin Dose 52.5 MLS/HR; Start 02/20/17 at 11:30 Phenylephrine HCl 250 ml @ 75 mls/hr TITRATE IV ; Start 02/20/17 at 15:00; Stop 02/21/17 at 23:00 Acetaminophen 100 ml @ 400 mls/hr Q6H PRN IVPB FEVER Last administered on 07:03; Admin Dose 400 MLS/HR; Start 02/20/17 at 17:30 Caspofungin 50 mg/ Sodium Chloride 250 ml @ 250 mls/hr Q24H IVPB ; Start at 13:00 Phenylephrine HCl/ Dextrose (Mane-Syneph/D5W) 500 ml @ 75 mls/hr TITRATE IV ; Start 02/21/17 at 17:30 VIKASH CASTANEDA Feb 21, 2017 17:32
[2017-02-21] MEDS: HYDROmorphONE 1 MG/ML SYG IV PRN (20:59)
--- NOTE | 2017-02-21 23:35 | CONS ---
Date/Time of Note Date/Time of Note DATE: 02/21/17 TIME: 23:34 Assessment/Plan Assessment/Plan Chief Complaint/Hosp Course -Anemia, POST PRBC transfuse packed red blood cells as needed continue to monitor H&H. COMPLEX, MULTIFACTORIAL -Left lung squamous carcinoma, NOW WITH POS LIVER METS supportive care no aggressive treatment planned HYPERCALCEMIA POST AREDIA CA-IMPROVED - SBO NOW ON CONSERVATIVE MANAGEMENT -Sepsis, most likely secondary to urinary tract infection and possible postobstructive pneumonia. Dr. Coleman is following infection disease consultation, follow-up on cultures, continue antibiotics per ID. -Hyponatremia, nephrology f-up, continue IV fluids per renal. -Ventilator dependent respiratory failure with tracheostomy, continue breathing treatments. -COPD -Dysphagia with PEG -History of cardiopulmonary arrest -Multiple wounds present on admission, that is post debridement at last admission. -Hypothyroidism -Chronic urinary retention with George catheter PROGNOSIS- POOR Problems: Consultation Date/Type/Reason Admit Date/Time Feb 01, 2017 at 15:50 Initial Consult Date 02/08/17 Type of Consultation: hemeon Referring Provider: DRE LOBATO MD 24 HR Interval Summary Free Text/Dictation all noted on levophed Exam/Review of Systems Vital Signs Vitals Vital Signs Date Time Temp Pulse Resp B/P Pulse Ox O2 Delivery O2 Flow Rate FiO2 02/21/17 22:00 104 27 105/66 Mechanical Ventilator 02/21/17 21:45 95 02/21/17 20:00 30 02/21/17 19:30 98.8 Intake and Output 02/20/17 02/20/17 02/21/17 15:00 23:00 07:00 Intake Total 1332.975 ml 2651.25 ml 1573.75 ml Output Total 725 ml 1225 ml 1450 ml Balance 607.975 ml 1426.25 ml 123.75 ml Exam GENERAL: This is a well-developed, ill-appearing man, who is awake, in no distress. HEENT: Head atraumatic, normocephalic. Sclerae anicteric. Buccal mucosa pink and dry. NECK: Supple. CHEST: Rise symmetrical. Breath sounds diminished at the bases. HEART: S1, S2. ABDOMEN: Soft, bowel sounds present. EXTREMITIES: Without cyanosis. + WOUNDS Results Result Diagram: 02/21/17 0644 02/21/17 0520 Results 24 hrs Laboratory Tests Test 02/21/17 01:31 02/21/17 04:33 02/21/17 05:20 02/21/17 06:44 Bedside Glucose 101 148 White Blood Count 33.4 #H Red Blood Count 2.89 L Hemoglobin 7.8 L 7.6 L Hematocrit 25.7 L 25.5 L Mean Corpuscular Volume 88.9 Mean Corpuscular Hemoglobin 27.0 L Mean Corpuscular Hemoglobin Concent 30.4 L Red Cell Distribution Width 18.6 H Platelet Count 73 L Mean Platelet Volume 9.4 Neutrophils % Segmented Neutrophils % (Manual) 74 Band Neutrophils % (Manual) 8 H Lymphocytes % Lymphocytes % (Manual) 10 L Monocytes % Monocytes % (Manual) 3 Eosinophils % Eosinophils % (Manual) 4 Basophils % Myelocytes % (Manual) 1 H Nucleated Red Blood Cells % 0.1 H Neutrophils # (Manual) 25.6 H Band Neutrophils # 2.6 H Absolute Lymphocytes (Manual) 3.3 H Lymphocytes # Monocytes # Absolute Monocytes (Manual) 1.0 H Eosinophils # Basophils # Myelocytes # 0.3 H Nucleated Red Blood Cells # Platelet Estimate DECREASED Dimorphic Red Blood Cells 1+ Polychromasia 1+ Anisocytosis 1+ Macrocytosis 1+ Sodium Level 148 H Potassium Level 3.7 Chloride Level 113 H Carbon Dioxide Level 22 Anion Gap 17 H Blood Urea Nitrogen 45 H Creatinine 1.05 H Glucose Level 88 # Calcium Level 9.7 Total Bilirubin 0.0 L Direct Bilirubin 0.00 Indirect Bilirubin 0.0 Aspartate Amino Transf (AST/SGOT) 23 Alanine Aminotransferase (ALT/SGPT) 21 Alkaline Phosphatase 268 H Total Protein 5.9 L Albumin 2.1 L Globulin 3.80 H Albumin/Globulin Ratio 0.55 Test 02/21/17 09:38 02/21/17 21:57 Bedside Glucose 100 116 Medications Medications Current Medications Ondansetron HCl (Zofran Inj) 4 mg Q6H PRN IV NAUSEA AND/OR VOMITING Last administered on 02/05/17 09:36; Admin Dose 4 MG; Start 02/01/17 at 22:30 Acetaminophen (Tylenol Tab) 650 mg Q6H PRN PO PAIN LEVEL 1-3 OR FEVER Last administered on 02/19/17 04:25; Admin Dose 650 MG; Start 02/01/17 at 22:30; Status Future Hold Acetaminophen/ Hydrocodone Bitart ([place] (5/325)) 1 tab Q6H PRN PO MODERATE PAIN LEVEL 4-6 Last administered on 02/04/17 21:07; Admin Dose 1 TAB; Start at 22:30; Status Future hold Hydromorphone HCl (Dilaudid) 0.5 mg Q4H PRN IV SEVERE PAIN LEVEL 7-10 Last administered on 02/21/17 20:59; Admin Dose 0.5 MG; Start 02/01/17 at 22:30 Docusate Sodium (Colace) 100 mg Q12H PRN PO CONSTIPATION; Start 02/01/17 at 22: 30 Magnesium Hydroxide (Milk Of Mag) 30 ml DAILY PRN PO CONSTIPATION; Start at 22:30 Bisacodyl (Dulcolax) 5 mg DAILY PRN PO CONSTIPATION; Start 02/01/17 at 22:30 Zolpidem Tartrate (Ambien) 5 mg QHS PRN PO SLEEP; Start 02/01/17 at 22:30 Lansoprazole (Prevacid) 30 mg DAILY@06 GTB Last administered on 02/18/17 05:48 ; Admin Dose 30 MG; Start 02/02/17 at 06:00 Enoxaparin Sodium (Lovenox) 40 mg DAILY SC Last administered on 02/20/17 11:01 ; Admin Dose 40 MG; Start 02/02/17 at 09:00 Ascorbic Acid (Vitamin C) 500 mg BID GTB Last administered on 02/18/17 20:54; Admin Dose 500 MG; Start 02/02/17 at 09:00 Diazepam (Valium) 5 mg DAILY PRN GTB ANXIETY Last administered on 02/08/17 20: 27; Admin Dose 5 MG; Start 02/01/17 at 22:30 Duloxetine HCl (Cymbalta) 20 mg DAILY GTB Last administered on 02/18/17 08:45; Admin Dose 20 MG; Start 02/02/17 at 09:00 Multivitamins Therapeutic (Theragran) 1 tab DAILY GTB Last administered on 08:45; Admin Dose 1 TAB; Start 02/02/17 at 09:00 Zinc Sulfate (Zinc Sulfate) 220 mg DAILY GTB Last administered on 9/3/17at 08: 45; Admin Dose 220 MG; Start 02/02/17 at 09:00 Lactobacillus Acidophilus (Florajen3 Capsule) 1 each TID NGT Last administered on 02/18/17 20:54; Admin Dose 1 EACH; Start 02/02/17 at 09:00 Lactulose (Enulose) 20 gm BID PO Last administered on 02/18/17 20:54; Admin Dose 20 GM; Start 02/02/17 at 09:00 Collagenase (Santyl) 1 applic DAILY TOP Last administered on 02/21/17 09:33; Admin Dose 1 APPLIC; Start 02/02/17 at 09:00 Collagenase 1 applic 1 applic PRN PRN TOP PRN; Start 02/02/17 at 04:00 Linezolid 300 ml @ 300 mls/hr Q12 IVPB Last administered on 02/21/17 20:58; Admin Dose 300 MLS/HR; Start 02/09/17 at 15:00 Metronidazole 100 ml @ 100 mls/hr Q8 IVPB Last administered on 02/21/17 21:59 ; Admin Dose 100 MLS/HR; Start 02/09/17 at 14:00 Colistimethate Sodium/Sodium Chloride (Coly-Mycin/NS) 100 ml @ 200 mls/hr Q12H IVPB Last administered on 02/21/17 16:21; Admin Dose 200 MLS/HR; Start at 04:00 Sodium Hypochlorite (Dakin'S (1/4 Strength)) 1 applic DAILY IRR Last administered on 02/21/17 09:00; Admin Dose 1 APPLIC; Start 02/10/17 at 13:30 IV Flush (NS 10 ml) 10 ml PRN PRN IV FLUSH LINE; Start 02/10/17 at 15:30 Mupirocin (Bactroban) 1 applic BID TOP Last administered on 02/21/17 20:59; Admin Dose 1 APPLIC; Start 02/11/17 at 14:00 Dextrose 25 ml 25 ml IACHS PRN IV DECREASED GLUCOSE Last administered on 10:01; Admin Dose 25 ML; Start 02/13/17 at 08:30 Total Parenteral Nutrition (Tpn) 1,000 ml @ 60 mls/hr [id number] IV Last administered on 02/21/17 06:01; Admin Dose 60 MLS/HR; Start 02/13/17 at 16:00 Dextrose (D50w Syringe) 50 ml IV PRN IV DECREASED GLUCOSE Last administered on 02/13/17 18:07; Admin Dose 50 ML; Start 02/13/17 at 14:30 Fentanyl (Duragesic 25 Mcg/Hr Patch) 1 patch Q72H TRANSDERM Last administered on 02/20/17 17:54; Admin Dose 1 PATCH; Start 02/14/17 at 15:30 IV Flush (NS 10 ml) 10 ml PRN PRN IV IV PROTOCOL; Start 02/15/17 at 21:30 Diagnostic Test (Pha) 1 ea 1 ea Q4 XX Last administered on 02/21/17 16:24; Admin Dose 1 EA; Start 02/20/17 at 09:00 Dextrose 1,000 ml @ 50 mls/hr Q20H IV Last administered on 02/21/17 04:48; Admin Dose 50 MLS/HR; Start 02/20/17 at 09:30 Norepinephrine 16 mg/Dextrose 500 ml @ 0 mls/hr TITRATE IV Last administered on 02/21/17 16:00; Admin Dose 43.12 MLS/HR; Start 02/20/17 at 11:30 Acetaminophen 100 ml @ 400 mls/hr Q6H PRN IVPB FEVER Last administered on 07:03; Admin Dose 400 MLS/HR; Start 02/20/17 at 17:30 Caspofungin 50 mg/ Sodium Chloride 250 ml @ 250 mls/hr Q24H IVPB ; Start at 13:00 Phenylephrine HCl/ Dextrose (Mane-Syneph/D5W) 500 ml @ 75 mls/hr TITRATE IV ; Start 02/21/17 at 17:30 DYLLAN CARRION MD Feb 21, 2017 23:35
[2017-02-22] VITALS (103 sets, daily range): BP systolic 70–169; BP diastolic 50–101; PULSE 73–202; RESP 19–36
[2017-02-22] MEDS: TPN 1,000 ML IV SCH ×2 (00:13→18:20)
[2017-02-22] MEDS: ACCU-CHEK XX SCH ×6 (00:36→21:00)
[2017-02-22] MEDS: ALBUTEROL 18 GM INHALER INH SCH ×4 (01:11→19:33)
[2017-02-22] MEDS: IPRATROPIUM (HFA) 12.9 GM INHALER INH SCH ×4 (01:11→19:33)
[2017-02-22] MEDS: DEXTROSE 10% 1,000 ML IV SCH ×2 (01:30→21:17)
[2017-02-22] MEDS: COLISTIMETHATE 100 MG in SOD CHLORIDE 0.9% 100 ML IVPB SCH ×2 (04:40→16:52)
[2017-02-22] MEDS: PHENYLephrine 40 MG in DEXTROSE 5% 496 ML IV SCH (04:45)
[2017-02-22] MEDS: ACETAMINOPHEN 1000MG/100ML IV 100 ML IVPB PRN (04:47)
[2017-02-22] MEDS: LANSOPRAZOLE 30 MG CAP GTB SCH (05:06)
[2017-02-22] MEDS: metroNIDAZOLE 500 MG/NS (PMX) 100 ML IVPB SCH ×3 (05:07→21:12)
[2017-02-22 05:44] LABS: ABNORMAL IP MESSAGE 1; HEMATOCRIT 25.4 % (37.0-47.0); HEMOGLOBIN 7.8 g/dl (12.0-16.0); MEAN CORPUSCULAR HGB CONC 30.7 g/dl (32.0-37.0); MEAN CORPUSCULAR VOLUME 87.9 fl (82.0-101.0); NUCLEATED RED BLOOD CELLS% 0.1 /100WBC (0.0-0.0); PLATELET COUNT 71 10^3/UL (140-415); RED BLOOD COUNT 2.89 10^6/ul (4.20-5.40); RED CELL DISTRIBUTION WIDTH 18.6 % (11.5-14.5); WHITE BLOOD COUNT 38.4 10^3/ul (4.8-10.8)
[2017-02-22 06:16] LABS: POSITIVE DIFF @See below
[2017-02-22 06:25] LABS: ALBUMIN 2.3 g/dl (3.3-4.9); ALBUMIN/GLOBULIN RATIO 0.57; CALCIUM 9.5 mg/dl (8.4-10.2); CREATININE 1.12 mg/dl (0.44-1.00); POTASSIUM 3.3 mmol/L (3.5-5.1); TOTAL PROTEIN 6.3 g/dl (6.1-8.1)
[2017-02-22 06:59] LABS: MAGNESIUM 1.6 mg/dl (1.7-2.5); PHOSPHORUS 3.2 mg/dl (2.5-4.9)
[2017-02-22 07:43] LABS: ANISOCYTOSIS 1+ (0-0); BASOPHILS % (M) 4 % (0-2); EOSINOPHILS % (M) 1 % (0-7); GIANT THROMBO% (M) 2 % (0-0); HYPOCHROMASIA 1+ (0-0); MICROCYTOSIS 1+ (0-0); MYELOCYTES % (M) 1 % (0-0); PLATELET ESTIMATE DECREASED; POIKILOCYTOSIS 1+ (0-0)
[2017-02-22] MEDS: MULTIVITAMINS THERAPEUTIC TAB GTB SCH (08:37)
[2017-02-22] MEDS: ASCORBIC ACID 500 MG TAB GTB SCH ×2 (08:37→21:00)
[2017-02-22] MEDS: DULOXETINE 20 MG CAP DR GTB SCH (08:37)
[2017-02-22] MEDS: ZINC SULFATE 220 MG CAP GTB SCH (08:38)
[2017-02-22] MEDS: L ACIDOPHIL/B LACTIS/B LONGUM CAPSULE NGT SCH ×3 (08:38→21:00)
[2017-02-22] MEDS: SODIUM HYPOCHLORITE 0.125% 473 ML BTL IRR SCH (08:38)
[2017-02-22] MEDS: LACTULOSE 30ML CUP PO SCH ×2 (08:38→21:00)
[2017-02-22] MEDS: ENOXAPARIN 40 MG/0.4 ML SYG SC SCH (08:39)
[2017-02-22] MEDS: MUPIROCIN 2% 22 GM OINT TOP SCH ×2 (08:39→21:12)
[2017-02-22] MEDS: COLLAGENASE 30 GM TUBE TOP SCH (08:40)
[2017-02-22] MEDS: LINEZOLID 600 MG/D5W (PMX) 300 ML IVPB SCH ×2 (08:47→21:06)
--- NOTE | 2017-02-22 10:20 | CONS ---
Date/Time of Note Date/Time of Note DATE: 02/22/17 TIME: 10:17 Assessment/Plan Assessment/Plan Additional Assessment/Plan Ventilator setting; AC of 14, tidal volume 450, PEEP of 5, 50% FiO2. Patient currently on Levophed at 25 mics per minute. Next Assessment and recommendations; 1. Patient admitted for recurrent sepsis due to severe decubitus ulcers. Currently on broad-spectrum antibiotic coverage. 2. Chronic respiratory failure. 3. COPD. 4. Severe generalized deconditioning. 5. Likely left lower lobe lung malignancy, patient however has been too unstable to undergo any kind of workup. 6. Anemia and thrombocytopenia. 7. Profound hypotension. Continue current supportive care. Prognosis is poor. Consultation Date/Type/Reason Admit Date/Time Feb 01, 2017 at 15:50 Initial Consult Date 02/09/17 Type of Consultation: Pulmonary/critical care Referring Provider: DRE LOBATO MD 24 HR Interval Summary Free Text/Dictation Patient condition remains critical. Remains profoundly hypotensive requiring high-dose pressor support. Patient however remains awake. General exam; elderly woman, on ventilator via tracheostomy, currently in no distress. Exam/Review of Systems Vital Signs Vitals Vital Signs Date Time Temp Pulse Resp B/P Pulse Ox O2 Delivery O2 Flow Rate FiO2 02/22/17 09:45 87 23 92/65 02/22/17 09:00 Mechanical Ventilator 02/22/17 08:45 100 02/22/17 08:00 99.8 02/22/17 05:10 40 Intake and Output 02/21/17 02/21/17 02/22/17 15:00 23:00 07:00 Intake Total 1388.75 ml 1748.74 ml 1772.50 ml Output Total 750 ml 900 ml 1940 ml Balance 638.75 ml 848.74 ml -167.50 ml Exam HEENT exam; supple neck, no JVD. No lymphadenopathy. Midline trachea. No thyromegaly. Tracheostomy in place. Patient has a multiple carious teeth. Chest exam; diminished but clear breath sounds. S1-S2 audible, no murmurs. Regular rhythm. Abdomen exam; soft, mildly distended. Bowel sounds are absent. G-tube in place. No organomegaly felt. Extremity exam; no peripheral edema. Back examination; dressing applied over sacrum. [employer] exam; patient is awake but exhibiting profound generalized weakness. Results Result Diagram: 02/22/17 0500 02/22/17 0500 Results 24 hrs Laboratory Tests Test 02/21/17 21:57 02/22/17 00:33 02/22/17 04:58 02/22/17 05:00 Bedside Glucose 116 99 88 White Blood Count 38.4 H Red Blood Count 2.89 L Hemoglobin 7.8 L Hematocrit 25.4 L Mean Corpuscular Volume 87.9 Mean Corpuscular Hemoglobin 27.0 L Mean Corpuscular Hemoglobin Concent 30.7 L Red Cell Distribution Width 18.6 H Platelet Count 71 L Mean Platelet Volume 10.0 Neutrophils % Segmented Neutrophils % (Manual) 34 L Band Neutrophils % (Manual) 4 Lymphocytes % Lymphocytes % (Manual) 56 H Monocytes % Eosinophils % Eosinophils % (Manual) 1 Basophils % Basophils % (Manual) 4 H Myelocytes % (Manual) 1 H Nucleated Red Blood Cells % 0.1 H Neutrophils # (Manual) 13.6 H Band Neutrophils # 1.5 H Absolute Lymphocytes (Manual) 21.5 H Lymphocytes # Monocytes # Eosinophils # Basophils # Basophils # (Manual) 1.5 H Myelocytes # 0.3 H Nucleated Red Blood Cells # Platelet Estimate DECREASED Giant Platelets 2 H Hypochromasia 1+ Poikilocytosis 1+ Anisocytosis 1+ Microcytosis 1+ Sodium Level 139 Potassium Level 3.3 L Chloride Level 103 # Carbon Dioxide Level 24 Anion Gap 15 Blood Urea Nitrogen 41 H Creatinine 1.12 H Glucose Level 83 Calcium Level 9.5 Phosphorus Level 3.2 Magnesium Level 1.6 L Total Bilirubin 0.0 L Direct Bilirubin 0.00 Indirect Bilirubin 0.0 Aspartate Amino Transf (AST/SGOT) 20 Alanine Aminotransferase (ALT/SGPT) 15 Alkaline Phosphatase 242 H Total Protein 6.3 Albumin 2.3 L Globulin 4.00 H Albumin/Globulin Ratio 0.57 Test 02/22/17 08:42 Bedside Glucose 94 Medications Medications Current Medications Ondansetron HCl (Zofran Inj) 4 mg Q6H PRN IV NAUSEA AND/OR VOMITING Last administered on 02/05/17 09:36; Admin Dose 4 MG; Start 02/01/17 at 22:30 Acetaminophen (Tylenol Tab) 650 mg Q6H PRN PO PAIN LEVEL 1-3 OR FEVER Last administered on 02/19/17 04:25; Admin Dose 650 MG; Start 02/01/17 at 22:30; Status Future Hold Acetaminophen/ Hydrocodone Bitart ([place] (5/325)) 1 tab Q6H PRN PO MODERATE PAIN LEVEL 4-6 Last administered on 02/04/17 21:07; Admin Dose 1 TAB; Start at 22:30; Status Future hold Hydromorphone HCl (Dilaudid) 0.5 mg Q4H PRN IV SEVERE PAIN LEVEL 7-10 Last administered on 02/21/17 20:59; Admin Dose 0.5 MG; Start 02/01/17 at 22:30 Docusate Sodium (Colace) 100 mg Q12H PRN PO CONSTIPATION; Start 02/01/17 at 22: 30 Magnesium Hydroxide (Milk Of Mag) 30 ml DAILY PRN PO CONSTIPATION; Start at 22:30 Bisacodyl (Dulcolax) 5 mg DAILY PRN PO CONSTIPATION; Start 02/01/17 at 22:30 Zolpidem Tartrate (Ambien) 5 mg QHS PRN PO SLEEP; Start 02/01/17 at 22:30 Lansoprazole (Prevacid) 30 mg DAILY@06 GTB Last administered on 02/18/17 05:48 ; Admin Dose 30 MG; Start 02/02/17 at 06:00 Enoxaparin Sodium (Lovenox) 40 mg DAILY SC Last administered on 02/20/17 11:01 ; Admin Dose 40 MG; Start 02/02/17 at 09:00 Ascorbic Acid (Vitamin C) 500 mg BID GTB Last administered on 02/18/17 20:54; Admin Dose 500 MG; Start 02/02/17 at 09:00 Diazepam (Valium) 5 mg DAILY PRN GTB ANXIETY Last administered on 02/08/17 20: 27; Admin Dose 5 MG; Start 02/01/17 at 22:30 Duloxetine HCl (Cymbalta) 20 mg DAILY GTB Last administered on 02/18/17 08:45; Admin Dose 20 MG; Start 02/02/17 at 09:00 Multivitamins Therapeutic (Theragran) 1 tab DAILY GTB Last administered on 08:45; Admin Dose 1 TAB; Start 02/02/17 at 09:00 Zinc Sulfate (Zinc Sulfate) 220 mg DAILY GTB Last administered on 02/18/17 08: 45; Admin Dose 220 MG; Start 02/02/17 at 09:00 Lactobacillus Acidophilus (Florajen3 Capsule) 1 each TID NGT Last administered on 02/18/17 20:54; Admin Dose 1 EACH; Start 02/02/17 at 09:00 Lactulose (Enulose) 20 gm BID PO Last administered on 02/18/17 20:54; Admin Dose 20 GM; Start 02/02/17 at 09:00 Collagenase (Santyl) 1 applic DAILY TOP Last administered on 02/22/17 08:40; Admin Dose 1 APPLIC; Start 02/02/17 at 09:00 Collagenase 1 applic 1 applic PRN PRN TOP PRN; Start 02/02/17 at 04:00 Linezolid 300 ml @ 300 mls/hr Q12 IVPB Last administered on 02/22/17 08:47; Admin Dose 300 MLS/HR; Start 02/09/17 at 15:00 Metronidazole 100 ml @ 100 mls/hr Q8 IVPB Last administered on 02/22/17 05:07 ; Admin Dose 100 MLS/HR; Start 02/09/17 at 14:00 Colistimethate Sodium/Sodium Chloride (Coly-Mycin/NS) 100 ml @ 200 mls/hr Q12H IVPB Last administered on 02/22/17 04:40; Admin Dose 200 MLS/HR; Start at 04:00 Sodium Hypochlorite (Dakin'S (1/4 Strength)) 1 applic DAILY IRR Last administered on 02/22/17 08:38; Admin Dose 1 APPLIC; Start 02/10/17 at 13:30 IV Flush (NS 10 ml) 10 ml PRN PRN IV FLUSH LINE; Start 02/10/17 at 15:30 Mupirocin (Bactroban) 1 applic BID TOP Last administered on 02/22/17 08:39; Admin Dose 1 APPLIC; Start 02/11/17 at 14:00 Dextrose 25 ml 25 ml IACHS PRN IV DECREASED GLUCOSE Last administered on 10:01; Admin Dose 25 ML; Start 02/13/17 at 08:30 Total Parenteral Nutrition (Tpn) 1,000 ml @ 60 mls/hr [id number] IV Last administered on 02/22/17 00:13; Admin Dose 60 MLS/HR; Start 02/13/17 at 16:00 Dextrose (D50w Syringe) 50 ml IV PRN IV DECREASED GLUCOSE Last administered on 02/13/17 18:07; Admin Dose 50 ML; Start 02/13/17 at 14:30 Fentanyl (Duragesic 25 Mcg/Hr Patch) 1 patch Q72H TRANSDERM Last administered on 02/20/17 17:54; Admin Dose 1 PATCH; Start 02/14/17 at 15:30 IV Flush (NS 10 ml) 10 ml PRN PRN IV IV PROTOCOL; Start 02/15/17 at 21:30 Diagnostic Test (Pha) 1 ea 1 ea Q4 XX Last administered on 02/22/17 08:50; Admin Dose 1 EA; Start 02/20/17 at 09:00 Dextrose 1,000 ml @ 50 mls/hr Q20H IV Last administered on 02/22/17 01:30; Admin Dose 50 MLS/HR; Start 02/20/17 at 09:30 Norepinephrine 16 mg/Dextrose 500 ml @ 0 mls/hr TITRATE IV Last administered on 02/22/17 01:33; Admin Dose 56.25 MLS/HR; Start 02/20/17 at 11:30 Acetaminophen 100 ml @ 400 mls/hr Q6H PRN IVPB FEVER Last administered on 04:47; Admin Dose 400 MLS/HR; Start 02/20/17 at 17:30 Caspofungin 50 mg/ Sodium Chloride 250 ml @ 250 mls/hr Q24H IVPB ; Start at 13:00 Phenylephrine HCl/ Dextrose (Mane-Syneph/D5W) 500 ml @ 75 mls/hr TITRATE IV Last administered on 02/22/17 04:45; Admin Dose 75 MLS/HR; Start 02/21/17 at 17: 30 REGINE BUCKLEY Feb 22, 2017 10:20
--- NOTE | 2017-02-22 11:46 | CONS ---
Date/Time of Note Date/Time of Note DATE: 02/22/17 TIME: 11:43 Assessment/Plan Assessment/Plan Additional Assessment/Plan Severe shock, likely multifactorial in etiology Sepsis Sinus tachycardia Respiratory failure Acute decompensated diastolic congestive heart failure Pulmonary hypertension Preserved ejection fraction Tricuspid valve regurgitation Lung cancer -IV pressors to maintain SBP greater than 90 and/or map above 60 and titrate as needed, patient currently on levophed with good urine output. IV fluids as per our nephrology colleagues. Continue antibiotics as per infectious disease. Continue to hold any antihypertensives or AV jesenia blocking agents. Tachycardia is likely manifestation of patient's sepsis and hypotension. Greater than 35 minutes of critical care time spent in care of this patient. Consultation Date/Type/Reason Admit Date/Time Feb 01, 2017 at 15:50 Initial Consult Date 02/01/17 Type of Consultation: cv Referring Provider: DRE LOBATO MD 24 HR Interval Summary Free Text/Dictation Patient seen and examined, still on IV pressor, no new cardiac issues as per nursing staff Exam/Review of Systems Vital Signs Vitals Vital Signs Date Time Temp Pulse Resp B/P Pulse Ox O2 Delivery O2 Flow Rate FiO2 02/22/17 09:45 87 23 92/65 02/22/17 09:00 Mechanical Ventilator 02/22/17 08:45 100 02/22/17 08:00 99.8 02/22/17 05:10 40 Intake and Output 02/21/17 02/21/17 02/22/17 15:00 23:00 07:00 Intake Total 1388.75 ml 1748.74 ml 1772.50 ml Output Total 750 ml 900 ml 1940 ml Balance 638.75 ml 848.74 ml -167.50 ml Exam Awake, following commands, appears uncomfortable Head: normocephalic Neck: other (Tracheostomy) Respiratory: other (Coarse breath sounds bilaterally, decreased at the bases, no wheezing) Cardiovascular: other (S1-S2 heard), regular rate and rhythm Gastrointestinal: bowel sounds, distended, soft, tender Extremities: edema Results Result Diagram: 02/22/17 0500 02/22/17 0500 Results 24 hrs Laboratory Tests Test 02/21/17 21:57 02/22/17 00:33 02/22/17 04:58 02/22/17 05:00 Bedside Glucose 116 99 88 White Blood Count 38.4 H Red Blood Count 2.89 L Hemoglobin 7.8 L Hematocrit 25.4 L Mean Corpuscular Volume 87.9 Mean Corpuscular Hemoglobin 27.0 L Mean Corpuscular Hemoglobin Concent 30.7 L Red Cell Distribution Width 18.6 H Platelet Count 71 L Mean Platelet Volume 10.0 Neutrophils % Segmented Neutrophils % (Manual) 34 L Band Neutrophils % (Manual) 4 Lymphocytes % Lymphocytes % (Manual) 56 H Monocytes % Eosinophils % Eosinophils % (Manual) 1 Basophils % Basophils % (Manual) 4 H Myelocytes % (Manual) 1 H Nucleated Red Blood Cells % 0.1 H Neutrophils # (Manual) 13.6 H Band Neutrophils # 1.5 H Absolute Lymphocytes (Manual) 21.5 H Lymphocytes # Monocytes # Eosinophils # Basophils # Basophils # (Manual) 1.5 H Myelocytes # 0.3 H Nucleated Red Blood Cells # Platelet Estimate DECREASED Giant Platelets 2 H Hypochromasia 1+ Poikilocytosis 1+ Anisocytosis 1+ Microcytosis 1+ Sodium Level 139 Potassium Level 3.3 L Chloride Level 103 # Carbon Dioxide Level 24 Anion Gap 15 Blood Urea Nitrogen 41 H Creatinine 1.12 H Glucose Level 83 Calcium Level 9.5 Phosphorus Level 3.2 Magnesium Level 1.6 L Total Bilirubin 0.0 L Direct Bilirubin 0.00 Indirect Bilirubin 0.0 Aspartate Amino Transf (AST/SGOT) 20 Alanine Aminotransferase (ALT/SGPT) 15 Alkaline Phosphatase 242 H Total Protein 6.3 Albumin 2.3 L Globulin 4.00 H Albumin/Globulin Ratio 0.57 Test 02/22/17 08:42 Bedside Glucose 94 Medications Medications Current Medications Ondansetron HCl (Zofran Inj) 4 mg Q6H PRN IV NAUSEA AND/OR VOMITING Last administered on 02/05/17 09:36; Admin Dose 4 MG; Start 02/01/17 at 22:30 Acetaminophen (Tylenol Tab) 650 mg Q6H PRN PO PAIN LEVEL 1-3 OR FEVER Last administered on 02/19/17 04:25; Admin Dose 650 MG; Start 02/01/17 at 22:30; Status Future Hold Acetaminophen/ Hydrocodone Bitart ([place] (5/325)) 1 tab Q6H PRN PO MODERATE PAIN LEVEL 4-6 Last administered on 02/04/17 21:07; Admin Dose 1 TAB; Start at 22:30; Status Future hold Hydromorphone HCl (Dilaudid) 0.5 mg Q4H PRN IV SEVERE PAIN LEVEL 7-10 Last administered on 02/21/17 20:59; Admin Dose 0.5 MG; Start 02/01/17 at 22:30 Docusate Sodium (Colace) 100 mg Q12H PRN PO CONSTIPATION; Start 02/01/17 at 22: 30 Magnesium Hydroxide (Milk Of Mag) 30 ml DAILY PRN PO CONSTIPATION; Start at 22:30 Bisacodyl (Dulcolax) 5 mg DAILY PRN PO CONSTIPATION; Start 02/01/17 at 22:30 Zolpidem Tartrate (Ambien) 5 mg QHS PRN PO SLEEP; Start 02/01/17 at 22:30 Lansoprazole (Prevacid) 30 mg DAILY@06 GTB Last administered on 02/18/17 05:48 ; Admin Dose 30 MG; Start 02/02/17 at 06:00 Enoxaparin Sodium (Lovenox) 40 mg DAILY SC Last administered on 02/20/17 11:01 ; Admin Dose 40 MG; Start 02/02/17 at 09:00 Ascorbic Acid (Vitamin C) 500 mg BID GTB Last administered on 02/18/17 20:54; Admin Dose 500 MG; Start 02/02/17 at 09:00 Diazepam (Valium) 5 mg DAILY PRN GTB ANXIETY Last administered on 02/08/17 20: 27; Admin Dose 5 MG; Start 02/01/17 at 22:30 Duloxetine HCl (Cymbalta) 20 mg DAILY GTB Last administered on 02/18/17 08:45; Admin Dose 20 MG; Start 02/02/17 at 09:00 Multivitamins Therapeutic (Theragran) 1 tab DAILY GTB Last administered on 08:45; Admin Dose 1 TAB; Start 02/02/17 at 09:00 Zinc Sulfate (Zinc Sulfate) 220 mg DAILY GTB Last administered on 02/18/17 08: 45; Admin Dose 220 MG; Start 02/02/17 at 09:00 Lactobacillus Acidophilus (Florajen3 Capsule) 1 each TID NGT Last administered on 02/18/17 20:54; Admin Dose 1 EACH; Start 02/02/17 at 09:00 Lactulose (Enulose) 20 gm BID PO Last administered on 02/18/17 20:54; Admin Dose 20 GM; Start 02/02/17 at 09:00 Collagenase (Santyl) 1 applic DAILY TOP Last administered on 02/22/17 08:40; Admin Dose 1 APPLIC; Start 02/02/17 at 09:00 Collagenase 1 applic 1 applic PRN PRN TOP PRN; Start 02/02/17 at 04:00 Linezolid 300 ml @ 300 mls/hr Q12 IVPB Last administered on 02/22/17 08:47; Admin Dose 300 MLS/HR; Start 02/09/17 at 15:00 Metronidazole 100 ml @ 100 mls/hr Q8 IVPB Last administered on 02/22/17 05:07 ; Admin Dose 100 MLS/HR; Start 02/09/17 at 14:00 Colistimethate Sodium/Sodium Chloride (Coly-Mycin/NS) 100 ml @ 200 mls/hr Q12H IVPB Last administered on 02/22/17 04:40; Admin Dose 200 MLS/HR; Start at 04:00 Sodium Hypochlorite (Dakin'S (1/4 Strength)) 1 applic DAILY IRR Last administered on 02/22/17 08:38; Admin Dose 1 APPLIC; Start 02/10/17 at 13:30 IV Flush (NS 10 ml) 10 ml PRN PRN IV FLUSH LINE; Start 02/10/17 at 15:30 Mupirocin (Bactroban) 1 applic BID TOP Last administered on 02/22/17 08:39; Admin Dose 1 APPLIC; Start 02/11/17 at 14:00 Dextrose 25 ml 25 ml IACHS PRN IV DECREASED GLUCOSE Last administered on 10:01; Admin Dose 25 ML; Start 02/13/17 at 08:30 Total Parenteral Nutrition (Tpn) 1,000 ml @ 60 mls/hr [id number] IV Last administered on 02/22/17 00:13; Admin Dose 60 MLS/HR; Start 02/13/17 at 16:00 Dextrose (D50w Syringe) 50 ml IV PRN IV DECREASED GLUCOSE Last administered on 02/13/17 18:07; Admin Dose 50 ML; Start 02/13/17 at 14:30 Fentanyl (Duragesic 25 Mcg/Hr Patch) 1 patch Q72H TRANSDERM Last administered on 02/20/17 17:54; Admin Dose 1 PATCH; Start 02/14/17 at 15:30 IV Flush (NS 10 ml) 10 ml PRN PRN IV IV PROTOCOL; Start 02/15/17 at 21:30 Diagnostic Test (Pha) 1 ea 1 ea Q4 XX Last administered on 02/22/17 08:50; Admin Dose 1 EA; Start 02/20/17 at 09:00 Dextrose 1,000 ml @ 50 mls/hr Q20H IV Last administered on 02/22/17 01:30; Admin Dose 50 MLS/HR; Start 02/20/17 at 09:30 Norepinephrine 16 mg/Dextrose 500 ml @ 0 mls/hr TITRATE IV Last administered on 02/22/17 01:33; Admin Dose 56.25 MLS/HR; Start 02/20/17 at 11:30 Acetaminophen 100 ml @ 400 mls/hr Q6H PRN IVPB FEVER Last administered on 04:47; Admin Dose 400 MLS/HR; Start 02/20/17 at 17:30 Caspofungin 50 mg/ Sodium Chloride 250 ml @ 250 mls/hr Q24H IVPB ; Start at 13:00 Phenylephrine HCl/ Dextrose (Mane-Syneph/D5W) 500 ml @ 75 mls/hr TITRATE IV Last administered on 02/22/17 04:45; Admin Dose 75 MLS/HR; Start 02/21/17 at 17: 30 Artemio Tipton DO Feb 22, 2017 11:46
[2017-02-22] MEDS ORDERED: MAGNESIUM SULFATE 2 GM/50 ML 50 ML IVPB ONE (12:00)
[2017-02-22] MEDS ORDERED: NORepinephrine 8MG/250 ML (PMX 250 ML ONE (12:40)
[2017-02-22] MEDS: POTASSIUM CHLORIDE 50 ML IVPB PRN ×3 (13:01→15:00)
[2017-02-22] MEDS: CASPOFUNGIN 50 MG in SOD CHLORIDE 0.9% 250 ML IVPB SCH (13:01)
--- NOTE | 2017-02-22 16:31 | CONS ---
Date/Time of Note Date/Time of Note DATE: 02/22/17 TIME: 16:28 Assessment/Plan Assessment/Plan Additional Assessment/Plan 1. 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 Shock multifactorial on levophed 3. Recurrent Multidrug Resistant Urinary tract infection 4. Sacral wound 5. Chronic resp failure 6.S/P Tracheostomy, S/p PEG tube placement 7. Lung CA- Squamous Cell CA 8. Hypercalcemia due to squamous cell CA of lung- s/p Pamidronate 30mg IV on Plan: -Continue current IV abx , ID following, pt is on levophed for BP support, not doing well, chemical code only, antifungal coverage added today - on IVF and TPN -S/p 3 % saline on02/09/17- s/p tolvaptan 15 mg [id number] x 1 dose on 02/13/17- Na improved to 138 today - Ca came down to 11.4- s/p One dose of pamidronate 30mg IV x 1 on 02/15/17 -will follow up Consultation Date/Type/Reason Admit Date/Time Feb 01, 2017 at 15:50 Initial Consult Date 02/08/17 Type of Consultation: NEPHROLOGY Referring Provider: DRE LOBATO MD 24 HR Interval Summary Free Text/Dictation Reamined in ICU, K low, Cr 1.12 Exam/Review of Systems Vital Signs Vitals Vital Signs Date Time Temp Pulse Resp B/P Pulse Ox O2 Delivery O2 Flow Rate FiO2 02/22/17 15:02 202 02/22/17 14:15 20 109/70 98 02/22/17 14:00 Mechanical Ventilator 02/22/17 12:00 99.0 02/22/17 05:10 40 Intake and Output 02/21/17 02/21/17 02/22/17 15:00 23:00 07:00 Intake Total 1388.75 ml 1748.74 ml 1772.50 ml Output Total 750 ml 900 ml 1940 ml Balance 638.75 ml 848.74 ml -167.50 ml Exam Constitutional: non-verbal ENMT: other (+ trachoestomy on ventilator ) Neck: supple Respiratory: congested cough, crackles/rales, diminished breath sounds, other ( Bilateral Coarse BS+) Cardiovascular: regular rate and rhythm Gastrointestinal: distended, soft Musculoskeletal: other (cachectic LE ) Neurological: other (Non verbal ) Results Result Diagram: 02/22/17 0500 02/22/17 0500 Results 24 hrs Laboratory Tests Test 02/21/17 21:57 02/22/17 00:33 02/22/17 04:58 02/22/17 05:00 Bedside Glucose 116 99 88 White Blood Count 38.4 H Red Blood Count 2.89 L Hemoglobin 7.8 L Hematocrit 25.4 L Mean Corpuscular Volume 87.9 Mean Corpuscular Hemoglobin 27.0 L Mean Corpuscular Hemoglobin Concent 30.7 L Red Cell Distribution Width 18.6 H Platelet Count 71 L Mean Platelet Volume 10.0 Neutrophils % Segmented Neutrophils % (Manual) 34 L Band Neutrophils % (Manual) 4 Lymphocytes % Lymphocytes % (Manual) 56 H Monocytes % Eosinophils % Eosinophils % (Manual) 1 Basophils % Basophils % (Manual) 4 H Myelocytes % (Manual) 1 H Nucleated Red Blood Cells % 0.1 H Neutrophils # (Manual) 13.6 H Band Neutrophils # 1.5 H Absolute Lymphocytes (Manual) 21.5 H Lymphocytes # Monocytes # Eosinophils # Basophils # Basophils # (Manual) 1.5 H Myelocytes # 0.3 H Nucleated Red Blood Cells # Platelet Estimate DECREASED Giant Platelets 2 H Hypochromasia 1+ Poikilocytosis 1+ Anisocytosis 1+ Microcytosis 1+ Sodium Level 139 Potassium Level 3.3 L Chloride Level 103 # Carbon Dioxide Level 24 Anion Gap 15 Blood Urea Nitrogen 41 H Creatinine 1.12 H Glucose Level 83 Calcium Level 9.5 Phosphorus Level 3.2 Magnesium Level 1.6 L Total Bilirubin 0.0 L Direct Bilirubin 0.00 Indirect Bilirubin 0.0 Aspartate Amino Transf (AST/SGOT) 20 Alanine Aminotransferase (ALT/SGPT) 15 Alkaline Phosphatase 242 H Total Protein 6.3 Albumin 2.3 L Globulin 4.00 H Albumin/Globulin Ratio 0.57 Test 02/22/17 08:42 02/22/17 13:43 Bedside Glucose 94 78 Medications Medications Current Medications Ondansetron HCl (Zofran Inj) 4 mg Q6H PRN IV NAUSEA AND/OR VOMITING Last administered on 02/05/17 09:36; Admin Dose 4 MG; Start 02/01/17 at 22:30 Acetaminophen (Tylenol Tab) 650 mg Q6H PRN PO PAIN LEVEL 1-3 OR FEVER Last administered on 02/19/17 04:25; Admin Dose 650 MG; Start 02/01/17 at 22:30; Status Future Hold Acetaminophen/ Hydrocodone Bitart ([place] (5/325)) 1 tab Q6H PRN PO MODERATE PAIN LEVEL 4-6 Last administered on 02/04/17 21:07; Admin Dose 1 TAB; Start at 22:30; Status Future hold Hydromorphone HCl (Dilaudid) 0.5 mg Q4H PRN IV SEVERE PAIN LEVEL 7-10 Last administered on 02/21/17 20:59; Admin Dose 0.5 MG; Start 02/01/17 at 22:30 Docusate Sodium (Colace) 100 mg Q12H PRN PO CONSTIPATION; Start 02/01/17 at 22: 30 Magnesium Hydroxide (Milk Of Mag) 30 ml DAILY PRN PO CONSTIPATION; Start at 22:30 Bisacodyl (Dulcolax) 5 mg DAILY PRN PO CONSTIPATION; Start 02/01/17 at 22:30 Zolpidem Tartrate (Ambien) 5 mg QHS PRN PO SLEEP; Start 02/01/17 at 22:30 Lansoprazole (Prevacid) 30 mg DAILY@06 GTB Last administered on 02/18/17 05:48 ; Admin Dose 30 MG; Start 02/02/17 at 06:00 Enoxaparin Sodium (Lovenox) 40 mg DAILY SC Last administered on 02/20/17 11:01 ; Admin Dose 40 MG; Start 02/02/17 at 09:00 Ascorbic Acid (Vitamin C) 500 mg BID GTB Last administered on 02/18/17 20:54; Admin Dose 500 MG; Start 02/02/17 at 09:00 Diazepam (Valium) 5 mg DAILY PRN GTB ANXIETY Last administered on 02/08/17 20: 27; Admin Dose 5 MG; Start 02/01/17 at 22:30 Duloxetine HCl (Cymbalta) 20 mg DAILY GTB Last administered on 02/18/17 08:45; Admin Dose 20 MG; Start 02/02/17 at 09:00 Multivitamins Therapeutic (Theragran) 1 tab DAILY GTB Last administered on 08:45; Admin Dose 1 TAB; Start 02/02/17 at 09:00 Zinc Sulfate (Zinc Sulfate) 220 mg DAILY GTB Last administered on 02/18/17 08: 45; Admin Dose 220 MG; Start 02/02/17 at 09:00 Lactobacillus Acidophilus (Florajen3 Capsule) 1 each TID NGT Last administered on 02/18/17 20:54; Admin Dose 1 EACH; Start 02/02/17 at 09:00 Lactulose (Enulose) 20 gm BID PO Last administered on 02/18/17 20:54; Admin Dose 20 GM; Start 02/02/17 at 09:00 Collagenase (Santyl) 1 applic DAILY TOP Last administered on 02/22/17 08:40; Admin Dose 1 APPLIC; Start 02/02/17 at 09:00 Collagenase 1 applic 1 applic PRN PRN TOP PRN; Start 02/02/17 at 04:00 Linezolid 300 ml @ 300 mls/hr Q12 IVPB Last administered on 02/22/17 08:47; Admin Dose 300 MLS/HR; Start 02/09/17 at 15:00 Metronidazole 100 ml @ 100 mls/hr Q8 IVPB Last administered on 02/22/17 14:21 ; Admin Dose 100 MLS/HR; Start 02/09/17 at 14:00 Colistimethate Sodium/Sodium Chloride (Coly-Mycin/NS) 100 ml @ 200 mls/hr Q12H IVPB Last administered on 02/22/17 04:40; Admin Dose 200 MLS/HR; Start at 04:00 Sodium Hypochlorite (Dakin'S (1/4 Strength)) 1 applic DAILY IRR Last administered on 02/22/17 08:38; Admin Dose 1 APPLIC; Start 02/10/17 at 13:30 IV Flush (NS 10 ml) 10 ml PRN PRN IV FLUSH LINE; Start 02/10/17 at 15:30 Mupirocin (Bactroban) 1 applic BID TOP Last administered on 02/22/17 08:39; Admin Dose 1 APPLIC; Start 02/11/17 at 14:00 Dextrose 25 ml 25 ml IACHS PRN IV DECREASED GLUCOSE Last administered on 10:01; Admin Dose 25 ML; Start 02/13/17 at 08:30 Total Parenteral Nutrition (Tpn) 1,000 ml @ 60 mls/hr [id number] IV Last administered on 02/22/17 00:13; Admin Dose 60 MLS/HR; Start 02/13/17 at 16:00 Dextrose (D50w Syringe) 50 ml IV PRN IV DECREASED GLUCOSE Last administered on 02/13/17 18:07; Admin Dose 50 ML; Start 02/13/17 at 14:30 Fentanyl (Duragesic 25 Mcg/Hr Patch) 1 patch Q72H TRANSDERM Last administered on 02/20/17 17:54; Admin Dose 1 PATCH; Start 02/14/17 at 15:30 IV Flush (NS 10 ml) 10 ml PRN PRN IV IV PROTOCOL; Start 02/15/17 at 21:30 Diagnostic Test (Pha) 1 ea 1 ea Q4 XX Last administered on 02/22/17 13:00; Admin Dose 1 EA; Start 02/20/17 at 09:00 Dextrose 1,000 ml @ 50 mls/hr Q20H IV Last administered on 02/22/17 01:30; Admin Dose 50 MLS/HR; Start 02/20/17 at 09:30 Norepinephrine 16 mg/Dextrose 500 ml @ 0 mls/hr TITRATE IV Last administered on 02/22/17 12:00; Admin Dose 45 MLS/HR; Start 02/20/17 at 11:30 Acetaminophen 100 ml @ 400 mls/hr Q6H PRN IVPB FEVER Last administered on 04:47; Admin Dose 400 MLS/HR; Start 02/20/17 at 17:30 Caspofungin 50 mg/ Sodium Chloride 250 ml @ 250 mls/hr Q24H IVPB Last administered on 02/22/17 13:01; Admin Dose 250 MLS/HR; Start 02/22/17 at 13:00 Phenylephrine HCl/ Dextrose (Mane-Syneph/D5W) 500 ml @ 75 mls/hr TITRATE IV Last administered on 02/22/17 04:45; Admin Dose 75 MLS/HR; Start 02/21/17 at 17: 30 DIONNE SAUCEDA MD Feb 22, 2017 16:31
--- NOTE | 2017-02-22 17:06 | PN ---
DATE: 02/22/2017 SUBJECTIVE DATA: No events overnight. Patient remains on pressors, lethargic, in no distress. Temperature 99.8 with a T- max of 101 yesterday. Pulse 91, respirations 20, blood pressure 86/59, saturation 100 on vent. LABORATORY AND DIAGNOSTIC DATA: WBC 38.4. H and H 7.4 and 25.4, platelets 71,000. BUN 41, creatinine 1.12. Microbiology: Blood and urine culture repeated on February 21 pending. Indwelling trach, PEG, George, PICC line placed on February 10. ANTIMICROBIALS: 1. Colistin. 2. Cancidas. 3. Flagyl. 4. Zyvox. PHYSICAL EXAMINATION: GENERAL: This is a fragile, chronically ill-appearing, elderly woman who is lethargic in no distress. HEENT: Head atraumatic, normocephalic. Sclerae anicteric. Buccal mucosa dry. NECK: Supple. Tracheostomy present. CHEST: Rise symmetrical. Breath sounds diminished at bases with scattered rhonchi. HEART: S1, S2. ABDOMEN: Distended. Bowel sounds hypoactive. EXTREMITIES: With trace edema. ASSESSMENT: 1. Severe sepsis with multisystem organ failure. 2. 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 3. Ileus, possible partial small bowel obstruction. 4. Multidrug resistant urinary tract infection. 5. Methicillin resistant Staphylococcus aureus nares colonization. 6. Lung cancer, possible obstructive pneumonia. 7. Cachexia. 8. History of Clostridium difficile. 9. Allergy to penicillin. PLAN: Patient is doing poorly. Remains hemodynamically unstable. She is chemical code only. She is being followed by multiple consultants. Pending repeat cultures from yesterday. Dictated By: Johnny Chapa NP /altagracia/gino /Document#: [id number]
--- NOTE | 2017-02-22 19:00 | PN ---
Date/Time of Note Date/Time of Note DATE: 02/22/17 TIME: 18:57 Assessment/Plan VTE Prophylaxis VTE Prophylaxis Intervention: other Lines/Catheters IV [facility] Type [facility] PICC Line Central line still needed: Yes Urinary Cath still in place: Yes Reason Cath still needed: urinary retention Assessment/Plan Assessment/Plan -Hypokalemia- replace K, am BMP -Small bowel obstruction. Continue G-tube to low wall suctioning. Dr Gonzales is following in gastroenterology consultation. -Sepsis, most likely secondary to urinary tract infection and possible postobstructive pneumonia. Dr. Coleman is following infection disease consultation, continue antibiotics per ID. -Hyponatremia, Dr. Zapata is following a nephrology consultation, continue IV fluids per renal. 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 -Ventilator dependent respiratory failure with tracheostomy, continue breathing treatments. 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 Subjective 24 Hr Interval Summary Constitutional: requiring IVF, requiring O2 Respiratory: no complaints Cardiovascular: no complaints Exam/Review of Systems Vital Signs Vitals Vital Signs Date Time Temp Pulse Resp B/P Pulse Ox O2 Delivery O2 Flow Rate FiO2 02/22/17 17:45 118 30 101/73 02/22/17 17:00 98 Mechanical Ventilator 02/22/17 16:55 40 02/22/17 16:00 98.8 Intake and Output 02/21/17 02/21/17 02/22/17 14:59 22:59 06:59 Intake Total 1483.75 ml 1542.49 ml 1823.75 ml Output Total 700 ml 850 ml 1940 ml Balance 783.75 ml 692.49 ml -116.25 ml Exam Constitutional: alert Respiratory: diminished breath sounds Cardiovascular: nl pulses, other (ST, HR 117), regular rate and rhythm Gastrointestinal: non-tender, other, soft Musculoskeletal: muscle weakness Extremities: normal pulses Neurological: confused, other Skin: other Results Result Diagram: 02/22/17 0500 02/22/17 0500 Results 24 hrs Laboratory Tests Test 02/21/17 21:57 02/22/17 00:33 02/22/17 04:58 02/22/17 05:00 Bedside Glucose 116 99 88 White Blood Count 38.4 H Red Blood Count 2.89 L Hemoglobin 7.8 L Hematocrit 25.4 L Mean Corpuscular Volume 87.9 Mean Corpuscular Hemoglobin 27.0 L Mean Corpuscular Hemoglobin Concent 30.7 L Red Cell Distribution Width 18.6 H Platelet Count 71 L Mean Platelet Volume 10.0 Neutrophils % Segmented Neutrophils % (Manual) 34 L Band Neutrophils % (Manual) 4 Lymphocytes % Lymphocytes % (Manual) 56 H Monocytes % Eosinophils % Eosinophils % (Manual) 1 Basophils % Basophils % (Manual) 4 H Myelocytes % (Manual) 1 H Nucleated Red Blood Cells % 0.1 H Neutrophils # (Manual) 13.6 H Band Neutrophils # 1.5 H Absolute Lymphocytes (Manual) 21.5 H Lymphocytes # Monocytes # Eosinophils # Basophils # Basophils # (Manual) 1.5 H Myelocytes # 0.3 H Nucleated Red Blood Cells # Platelet Estimate DECREASED Giant Platelets 2 H Hypochromasia 1+ Poikilocytosis 1+ Anisocytosis 1+ Microcytosis 1+ Sodium Level 139 Potassium Level 3.3 L Chloride Level 103 # Carbon Dioxide Level 24 Anion Gap 15 Blood Urea Nitrogen 41 H Creatinine 1.12 H Glucose Level 83 Calcium Level 9.5 Phosphorus Level 3.2 Magnesium Level 1.6 L Total Bilirubin 0.0 L Direct Bilirubin 0.00 Indirect Bilirubin 0.0 Aspartate Amino Transf (AST/SGOT) 20 Alanine Aminotransferase (ALT/SGPT) 15 Alkaline Phosphatase 242 H Total Protein 6.3 Albumin 2.3 L Globulin 4.00 H Albumin/Globulin Ratio 0.57 Test 02/22/17 08:42 02/22/17 13:43 02/22/17 16:54 Bedside Glucose 94 78 73 Medications Medications Current Medications Ondansetron HCl (Zofran Inj) 4 mg Q6H PRN IV NAUSEA AND/OR VOMITING Last administered on 02/05/17 09:36; Admin Dose 4 MG; Start 02/01/17 at 22:30 Acetaminophen (Tylenol Tab) 650 mg Q6H PRN PO PAIN LEVEL 1-3 OR FEVER Last administered on 02/19/17 04:25; Admin Dose 650 MG; Start 02/01/17 at 22:30; Status Future Hold Acetaminophen/ Hydrocodone Bitart ([place] (5/325)) 1 tab Q6H PRN PO MODERATE PAIN LEVEL 4-6 Last administered on 02/04/17 21:07; Admin Dose 1 TAB; Start at 22:30; Status Future hold Hydromorphone HCl (Dilaudid) 0.5 mg Q4H PRN IV SEVERE PAIN LEVEL 7-10 Last administered on 02/21/17 20:59; Admin Dose 0.5 MG; Start 02/01/17 at 22:30 Docusate Sodium (Colace) 100 mg Q12H PRN PO CONSTIPATION; Start 02/01/17 at 22: 30 Magnesium Hydroxide (Milk Of Mag) 30 ml DAILY PRN PO CONSTIPATION; Start at 22:30 Bisacodyl (Dulcolax) 5 mg DAILY PRN PO CONSTIPATION; Start 02/01/17 at 22:30 Zolpidem Tartrate (Ambien) 5 mg QHS PRN PO SLEEP; Start 02/01/17 at 22:30 Lansoprazole (Prevacid) 30 mg DAILY@06 GTB Last administered on 02/18/17 05:48 ; Admin Dose 30 MG; Start 02/02/17 at 06:00 Enoxaparin Sodium (Lovenox) 40 mg DAILY SC Last administered on 02/20/17 11:01 ; Admin Dose 40 MG; Start 02/02/17 at 09:00 Ascorbic Acid (Vitamin C) 500 mg BID GTB Last administered on 02/18/17 20:54; Admin Dose 500 MG; Start 02/02/17 at 09:00 Diazepam (Valium) 5 mg DAILY PRN GTB ANXIETY Last administered on 02/08/17 20: 27; Admin Dose 5 MG; Start 02/01/17 at 22:30 Duloxetine HCl (Cymbalta) 20 mg DAILY GTB Last administered on 02/18/17 08:45; Admin Dose 20 MG; Start 02/02/17 at 09:00 Multivitamins Therapeutic (Theragran) 1 tab DAILY GTB Last administered on 08:45; Admin Dose 1 TAB; Start 02/02/17 at 09:00 Zinc Sulfate (Zinc Sulfate) 220 mg DAILY GTB Last administered on 02/18/17 08: 45; Admin Dose 220 MG; Start 02/02/17 at 09:00 Lactobacillus Acidophilus (Florajen3 Capsule) 1 each TID NGT Last administered on 02/18/17 20:54; Admin Dose 1 EACH; Start 02/02/17 at 09:00 Lactulose (Enulose) 20 gm BID PO Last administered on 02/18/17 20:54; Admin Dose 20 GM; Start 02/02/17 at 09:00 Collagenase (Santyl) 1 applic DAILY TOP Last administered on 02/22/17 08:40; Admin Dose 1 APPLIC; Start 02/02/17 at 09:00 Collagenase 1 applic 1 applic PRN PRN TOP PRN; Start 02/02/17 at 04:00 Linezolid 300 ml @ 300 mls/hr Q12 IVPB Last administered on 02/22/17 08:47; Admin Dose 300 MLS/HR; Start 02/09/17 at 15:00 Metronidazole 100 ml @ 100 mls/hr Q8 IVPB Last administered on 02/22/17 14:21 ; Admin Dose 100 MLS/HR; Start 02/09/17 at 14:00 Colistimethate Sodium/Sodium Chloride (Coly-Mycin/NS) 100 ml @ 200 mls/hr Q12H IVPB Last administered on 02/22/17 16:52; Admin Dose 200 MLS/HR; Start at 04:00 Sodium Hypochlorite (Dakin'S (1/4 Strength)) 1 applic DAILY IRR Last administered on 02/22/17 08:38; Admin Dose 1 APPLIC; Start 02/10/17 at 13:30 IV Flush (NS 10 ml) 10 ml PRN PRN IV FLUSH LINE; Start 02/10/17 at 15:30 Mupirocin (Bactroban) 1 applic BID TOP Last administered on 02/22/17 08:39; Admin Dose 1 APPLIC; Start 02/11/17 at 14:00 Dextrose 25 ml 25 ml IACHS PRN IV DECREASED GLUCOSE Last administered on 10:01; Admin Dose 25 ML; Start 02/13/17 at 08:30 Total Parenteral Nutrition (Tpn) 1,000 ml @ 60 mls/hr [id number] IV Last administered on 02/22/17 18:20; Admin Dose 60 MLS/HR; Start 02/13/17 at 16:00 Dextrose (D50w Syringe) 50 ml IV PRN IV DECREASED GLUCOSE Last administered on 02/13/17 18:07; Admin Dose 50 ML; Start 02/13/17 at 14:30 Fentanyl (Duragesic 25 Mcg/Hr Patch) 1 patch Q72H TRANSDERM Last administered on 02/20/17 17:54; Admin Dose 1 PATCH; Start 02/14/17 at 15:30 IV Flush (NS 10 ml) 10 ml PRN PRN IV IV PROTOCOL; Start 02/15/17 at 21:30 Diagnostic Test (Pha) 1 ea 1 ea Q4 XX Last administered on 02/22/17 17:03; Admin Dose 1 EA; Start 02/20/17 at 09:00 Dextrose 1,000 ml @ 50 mls/hr Q20H IV Last administered on 02/22/17 01:30; Admin Dose 50 MLS/HR; Start 02/20/17 at 09:30 Norepinephrine 16 mg/Dextrose 500 ml @ 0 mls/hr TITRATE IV Last administered on 02/22/17 12:00; Admin Dose 45 MLS/HR; Start 02/20/17 at 11:30 Acetaminophen 100 ml @ 400 mls/hr Q6H PRN IVPB FEVER Last administered on 04:47; Admin Dose 400 MLS/HR; Start 02/20/17 at 17:30 Caspofungin 50 mg/ Sodium Chloride 250 ml @ 250 mls/hr Q24H IVPB Last administered on 02/22/17 13:01; Admin Dose 250 MLS/HR; Start 02/22/17 at 13:00 Phenylephrine HCl/ Dextrose (Mane-Syneph/D5W) 500 ml @ 75 mls/hr TITRATE IV Last administered on 02/22/17 04:45; Admin Dose 75 MLS/HR; Start 02/21/17 at 17: 30 VIKASH CASTANEDA Feb 22, 2017 19:00
--- NOTE | 2017-02-22 21:20 | CONS ---
Date/Time of Note Date/Time of Note DATE: 02/22/17 TIME: 21:20 Assessment/Plan Assessment/Plan Chief Complaint/Hosp Course -Anemia, POST PRBC transfuse packed red blood cells as needed continue to monitor H&H. COMPLEX, MULTIFACTORIAL -Left lung squamous carcinoma, NOW WITH POS LIVER METS supportive care no aggressive treatment planned HYPERCALCEMIA POST AREDIA CA-IMPROVED - SBO NOW ON CONSERVATIVE MANAGEMENT -Sepsis, most likely secondary to urinary tract infection and possible postobstructive pneumonia. Dr. Coleman is following infection disease consultation, follow-up on cultures, continue antibiotics per ID. -Hyponatremia, nephrology f-up, continue IV fluids per renal. -Ventilator dependent respiratory failure with tracheostomy, continue breathing treatments. -COPD -Dysphagia with PEG -History of cardiopulmonary arrest -Multiple wounds present on admission, that is post debridement at last admission. -Hypothyroidism -Chronic urinary retention with George catheter PROGNOSIS- POOR Problems: Consultation Date/Type/Reason Admit Date/Time Feb 01, 2017 at 15:50 Initial Consult Date 02/08/17 Type of Consultation: hemeon Referring Provider: DRE LOBATO MD Exam/Review of Systems Vital Signs Vitals Vital Signs Date Time Temp Pulse Resp B/P Pulse Ox O2 Delivery O2 Flow Rate FiO2 02/22/17 20:00 127 02/22/17 17:45 30 101/73 02/22/17 17:00 98 Mechanical Ventilator 02/22/17 16:55 40 02/22/17 16:00 98.8 Intake and Output 02/21/17 02/21/17 02/22/17 15:00 23:00 07:00 Intake Total 1388.75 ml 1748.74 ml 1772.50 ml Output Total 750 ml 900 ml 1940 ml Balance 638.75 ml 848.74 ml -167.50 ml Results Result Diagram: 02/22/17 0500 02/22/17 0500 Results 24 hrs Laboratory Tests Test 02/21/17 21:57 02/22/17 00:33 02/22/17 04:58 02/22/17 05:00 Bedside Glucose 116 99 88 White Blood Count 38.4 H Red Blood Count 2.89 L Hemoglobin 7.8 L Hematocrit 25.4 L Mean Corpuscular Volume 87.9 Mean Corpuscular Hemoglobin 27.0 L Mean Corpuscular Hemoglobin Concent 30.7 L Red Cell Distribution Width 18.6 H Platelet Count 71 L Mean Platelet Volume 10.0 Neutrophils % Segmented Neutrophils % (Manual) 34 L Band Neutrophils % (Manual) 4 Lymphocytes % Lymphocytes % (Manual) 56 H Monocytes % Eosinophils % Eosinophils % (Manual) 1 Basophils % Basophils % (Manual) 4 H Myelocytes % (Manual) 1 H Nucleated Red Blood Cells % 0.1 H Neutrophils # (Manual) 13.6 H Band Neutrophils # 1.5 H Absolute Lymphocytes (Manual) 21.5 H Lymphocytes # Monocytes # Eosinophils # Basophils # Basophils # (Manual) 1.5 H Myelocytes # 0.3 H Nucleated Red Blood Cells # Platelet Estimate DECREASED Giant Platelets 2 H Hypochromasia 1+ Poikilocytosis 1+ Anisocytosis 1+ Microcytosis 1+ Sodium Level 139 Potassium Level 3.3 L Chloride Level 103 # Carbon Dioxide Level 24 Anion Gap 15 Blood Urea Nitrogen 41 H Creatinine 1.12 H Glucose Level 83 Calcium Level 9.5 Phosphorus Level 3.2 Magnesium Level 1.6 L Total Bilirubin 0.0 L Direct Bilirubin 0.00 Indirect Bilirubin 0.0 Aspartate Amino Transf (AST/SGOT) 20 Alanine Aminotransferase (ALT/SGPT) 15 Alkaline Phosphatase 242 H Total Protein 6.3 Albumin 2.3 L Globulin 4.00 H Albumin/Globulin Ratio 0.57 Test 02/22/17 08:42 02/22/17 13:43 02/22/17 16:54 Bedside Glucose 94 78 73 Medications Medications Current Medications Ondansetron HCl (Zofran Inj) 4 mg Q6H PRN IV NAUSEA AND/OR VOMITING Last administered on 02/05/17 09:36; Admin Dose 4 MG; Start 02/01/17 at 22:30 Acetaminophen (Tylenol Tab) 650 mg Q6H PRN PO PAIN LEVEL 1-3 OR FEVER Last administered on 02/19/17 04:25; Admin Dose 650 MG; Start 02/01/17 at 22:30; Status Future Hold Acetaminophen/ Hydrocodone Bitart ([place] (5/325)) 1 tab Q6H PRN PO MODERATE PAIN LEVEL 4-6 Last administered on 02/04/17 21:07; Admin Dose 1 TAB; Start at 22:30; Status Future hold Hydromorphone HCl (Dilaudid) 0.5 mg Q4H PRN IV SEVERE PAIN LEVEL 7-10 Last administered on 02/21/17 20:59; Admin Dose 0.5 MG; Start 02/01/17 at 22:30 Docusate Sodium (Colace) 100 mg Q12H PRN PO CONSTIPATION; Start 02/01/17 at 22: 30 Magnesium Hydroxide (Milk Of Mag) 30 ml DAILY PRN PO CONSTIPATION; Start at 22:30 Bisacodyl (Dulcolax) 5 mg DAILY PRN PO CONSTIPATION; Start 02/01/17 at 22:30 Zolpidem Tartrate (Ambien) 5 mg QHS PRN PO SLEEP; Start 02/01/17 at 22:30 Lansoprazole (Prevacid) 30 mg DAILY@06 GTB Last administered on 02/18/17 05:48 ; Admin Dose 30 MG; Start 02/02/17 at 06:00 Enoxaparin Sodium (Lovenox) 40 mg DAILY SC Last administered on 02/20/17 11:01 ; Admin Dose 40 MG; Start 02/02/17 at 09:00 Ascorbic Acid (Vitamin C) 500 mg BID GTB Last administered on 02/18/17 20:54; Admin Dose 500 MG; Start 02/02/17 at 09:00 Diazepam (Valium) 5 mg DAILY PRN GTB ANXIETY Last administered on 02/08/17 20: 27; Admin Dose 5 MG; Start 02/01/17 at 22:30 Duloxetine HCl (Cymbalta) 20 mg DAILY GTB Last administered on 02/18/17 08:45; Admin Dose 20 MG; Start 02/02/17 at 09:00 Multivitamins Therapeutic (Theragran) 1 tab DAILY GTB Last administered on 08:45; Admin Dose 1 TAB; Start 02/02/17 at 09:00 Zinc Sulfate (Zinc Sulfate) 220 mg DAILY GTB Last administered on 02/18/17 08: 45; Admin Dose 220 MG; Start 02/02/17 at 09:00 Lactobacillus Acidophilus (Florajen3 Capsule) 1 each TID NGT Last administered on 02/18/17 20:54; Admin Dose 1 EACH; Start 02/02/17 at 09:00 Lactulose (Enulose) 20 gm BID PO Last administered on 02/18/17 20:54; Admin Dose 20 GM; Start 02/02/17 at 09:00 Collagenase (Santyl) 1 applic DAILY TOP Last administered on 02/22/17 08:40; Admin Dose 1 APPLIC; Start 02/02/17 at 09:00 Collagenase 1 applic 1 applic PRN PRN TOP PRN; Start 02/02/17 at 04:00 Linezolid 300 ml @ 300 mls/hr Q12 IVPB Last administered on 02/22/17 21:06; Admin Dose 300 MLS/HR; Start 02/09/17 at 15:00 Metronidazole 100 ml @ 100 mls/hr Q8 IVPB Last administered on 02/22/17 21:12 ; Admin Dose 100 MLS/HR; Start 02/09/17 at 14:00 Colistimethate Sodium/Sodium Chloride (Coly-Mycin/NS) 100 ml @ 200 mls/hr Q12H IVPB Last administered on 02/22/17 16:52; Admin Dose 200 MLS/HR; Start at 04:00 Sodium Hypochlorite (Dakin'S (1/4 Strength)) 1 applic DAILY IRR Last administered on 02/22/17 08:38; Admin Dose 1 APPLIC; Start 02/10/17 at 13:30 IV Flush (NS 10 ml) 10 ml PRN PRN IV FLUSH LINE; Start 02/10/17 at 15:30 Mupirocin (Bactroban) 1 applic BID TOP Last administered on 02/22/17 21:12; Admin Dose 1 APPLIC; Start 02/11/17 at 14:00 Dextrose 25 ml 25 ml IACHS PRN IV DECREASED GLUCOSE Last administered on 10:01; Admin Dose 25 ML; Start 02/13/17 at 08:30 Total Parenteral Nutrition (Tpn) 1,000 ml @ 60 mls/hr [id number] IV Last administered on 02/22/17 18:20; Admin Dose 60 MLS/HR; Start 02/13/17 at 16:00 Dextrose (D50w Syringe) 50 ml IV PRN IV DECREASED GLUCOSE Last administered on 02/13/17 18:07; Admin Dose 50 ML; Start 02/13/17 at 14:30 Fentanyl (Duragesic 25 Mcg/Hr Patch) 1 patch Q72H TRANSDERM Last administered on 02/20/17 17:54; Admin Dose 1 PATCH; Start 02/14/17 at 15:30 IV Flush (NS 10 ml) 10 ml PRN PRN IV IV PROTOCOL; Start 02/15/17 at 21:30 Diagnostic Test (Pha) 1 ea 1 ea Q4 XX Last administered on 02/22/17 17:03; Admin Dose 1 EA; Start 02/20/17 at 09:00 Dextrose 1,000 ml @ 50 mls/hr Q20H IV Last administered on 02/22/17 21:17; Admin Dose 50 MLS/HR; Start 02/20/17 at 09:30 Norepinephrine 16 mg/Dextrose 500 ml @ 0 mls/hr TITRATE IV Last administered on 02/22/17 12:00; Admin Dose 45 MLS/HR; Start 02/20/17 at 11:30 Acetaminophen 100 ml @ 400 mls/hr Q6H PRN IVPB FEVER Last administered on 04:47; Admin Dose 400 MLS/HR; Start 02/20/17 at 17:30 Caspofungin 50 mg/ Sodium Chloride 250 ml @ 250 mls/hr Q24H IVPB Last administered on 02/22/17 13:01; Admin Dose 250 MLS/HR; Start 02/22/17 at 13:00 Phenylephrine HCl/ Dextrose (Mane-Syneph/D5W) 500 ml @ 75 mls/hr TITRATE IV Last administered on 02/22/17 04:45; Admin Dose 75 MLS/HR; Start 02/21/17 at 17: 30 DYLLAN CARRION MD Feb 22, 2017 21:20
--- NOTE | 2017-02-22 23:42 | PN ---
Date/Time of Note Date/Time of Note DATE: 02/22/17 TIME: 23:36 Assessment/Plan Lines/Catheters IV Catheter Type (from Nrsg): PICC Line George in Place (from Nrsg): Yes Assessment/Plan Chief Complaint/Hosp Course 1. Multiple decubitus ulcers with debris and slough, with likely osteo -Offload -Optimize nutrition -Vitamin C -Local care with dakins- increase dressing changes for increase in drainage -Debridement sacrococcyx prn 2. Left lung squamous cell carcinoma with ? metastasis -per onc, treatment vs. palliative 3. Abdominal distention: possible ileus (likely as per CT since contrast in colon & bowel function - no obstruction noted on imaging and patient having bowel function)' repeat SBFT: likely adynamic ileus; continues to have flatus: no abdominal pain -decompression -monitor 4. Sepsis with tachycardia, hypotension and hypoglycemia: UTI +/- Bacteremia +/ - PNA + wounds/osteo; on pressors -supportive -abx per sensitivities -pulmonary toilet -optimize blood sugar -supportive 5. Acute on chronic diastolic heart failure -Judicious fluid management -Cardiac optimization 6. Hypoalbuminemia: inflammation/infection +/- malnutrition -as above -nutrition optimization 7. Depression. -Medical management 8. Hypothyroidism by history; TSH elevated -Synthroid 9. Normocytic anemia: chronic disease vs. acute bleed; no rogerio bleed noted: s/ p PRBC transfusion -monitor -transfuse as needed -per heme/onc 10. Chronic pain syndrome: patient with metastasis -continue pain management; consider non narcotic adjuncts 11. Electrolyte imbalance: -optimize lytes Patient seen and examined in collaboration with Dr. Christian Sinclair. Thank you. Problems: Subjective 24 Hr Interval Summary Continues in ICU care. On pressors. Tachycardic. Leukocytosis worsened. Awake, appears comfortable on vent. + flatus, no bm, NG tube with large amount of output overnight. Fevers, no chills. +uop. No sob, cp, palpitations, abdominal pain, n/v/d/dysuria. Exam/Review of Systems Vital Signs Vitals Vital Signs Date Time Temp Pulse Resp B/P Pulse Ox O2 Delivery O2 Flow Rate FiO2 02/22/17 23:00 133 34 91/77 100 Mechanical Ventilator 02/22/17 20:00 99.5 02/22/17 20:00 40 Intake and Output 02/21/17 02/21/17 02/22/17 15:00 23:00 07:00 Intake Total 1388.75 ml 1748.74 ml 1772.50 ml Output Total 750 ml 900 ml 1940 ml Balance 638.75 ml 848.74 ml -167.50 ml Exam Free Text/Dictation Constitutional: awake, No distress, diaphoretic Psych: anxious Head: atraumatic, normocephalic Eyes: nl conjunctiva, nl lids, nl sclera ENMT: mucosa pink and dry, nl external ears & nose, nl lips; poor dentition, ng tube Neck: non-tender, other (tracheostomy, non-reddened, no drainage noted), supple Respiratory: normal effort, no wheezing, diminished, min thin sputum Cardiovascular: nl pulses, regular rate and rhythm, ST Gastrointestinal: non-tender, other (gtube, site non-tender, non-reddened), min distention; hypoactive bowel sounds Musculoskeletal: nl extremities to inspection Extremities: normal pulses, pedal Edema +2, cool temp bilat feet Neurological: nl mental status, No nl strength (gen weakness) Skin: No rash; wounds (sacral wound packed with mod drainage) Results Result Diagram: 02/22/17 0500 02/22/17 0500 JERRY SAHU NP Feb 22, 2017 23:42
[2017-02-23] VITALS (93 sets, daily range): BP systolic 73–156; BP diastolic 41–95; PULSE 89–139; RESP 21–43
[2017-02-23] MEDS: PHENYLephrine 40 MG in DEXTROSE 5% 496 ML IV SCH (00:25)
[2017-02-23] MEDS: ACCU-CHEK XX SCH ×5 (01:00→21:00)
[2017-02-23] MEDS: ALBUTEROL 18 GM INHALER INH SCH ×4 (01:17→19:25)
[2017-02-23] MEDS: IPRATROPIUM (HFA) 12.9 GM INHALER INH SCH ×4 (01:17→19:25)
[2017-02-23] MEDS: ACETAMINOPHEN 1000MG/100ML IV 100 ML IVPB PRN ×2 (01:38→22:06)
[2017-02-23] MEDS: HYDROmorphONE 1 MG/ML SYG IV PRN (02:27)
[2017-02-23] MEDS: COLISTIMETHATE 100 MG in SOD CHLORIDE 0.9% 100 ML IVPB SCH (04:19)
[2017-02-23] MEDS: LANSOPRAZOLE 30 MG CAP GTB SCH (05:39)
[2017-02-23 06:03] LABS: CALCIUM 9.3 mg/dl (8.4-10.2); CREATININE 1.27 mg/dl (0.44-1.00); MAGNESIUM 2.3 mg/dl (1.7-2.5); PHOSPHORUS 3.4 mg/dl (2.5-4.9); POTASSIUM 3.9 mmol/L (3.5-5.1)
[2017-02-23] MEDS: metroNIDAZOLE 500 MG/NS (PMX) 100 ML IVPB SCH ×3 (06:10→21:30)
[2017-02-23 06:38] LABS: ALBUMIN 2.4 g/dl (3.3-4.9); TOTAL PROTEIN 6.3 g/dl (6.1-8.1)
[2017-02-23] MEDS ORDERED: NORepinephrine 32 MG in DEXTROSE 5% 218 ML IV SCH (08:00)
[2017-02-23 08:19] LABS: ABNORMAL IP MESSAGE 1; HEMATOCRIT 25.4 % (37.0-47.0); HEMOGLOBIN 7.8 g/dl (12.0-16.0); MEAN CORPUSCULAR HEMOGLOBIN 26.9 pg (29.0-33.0); MEAN CORPUSCULAR HGB CONC 30.7 g/dl (32.0-37.0); MEAN CORPUSCULAR VOLUME 87.6 fl (82.0-101.0); MEAN PLATELET VOLUME 11.7 fl (7.4-10.4); NUCLEATED RED BLOOD CELLS% 0.2 /100WBC (0.0-0.0); PLATELET COUNT 57 10^3/UL (140-415); RED CELL DISTRIBUTION WIDTH 18.4 % (11.5-14.5); WHITE BLOOD COUNT 30.6 10^3/ul (4.8-10.8)
[2017-02-23 08:21] LABS: POSITIVE DIFF @See below
[2017-02-23] MEDS: LACTULOSE 30ML CUP PO SCH ×2 (09:00→20:32)
[2017-02-23] MEDS: DULOXETINE 20 MG CAP DR GTB SCH (09:00)
[2017-02-23] MEDS: PHENYLephrine 80 MG in DEXTROSE 5% 242 ML IV SCH (09:00)
[2017-02-23] MEDS: LINEZOLID 600 MG/D5W (PMX) 300 ML IVPB SCH ×2 (09:00→20:33)
[2017-02-23] MEDS: MULTIVITAMINS THERAPEUTIC TAB GTB SCH (09:00)
[2017-02-23] MEDS: L ACIDOPHIL/B LACTIS/B LONGUM CAPSULE NGT SCH ×3 (09:00→21:00)
[2017-02-23] MEDS: ASCORBIC ACID 500 MG TAB GTB SCH ×2 (09:00→20:32)
[2017-02-23] MEDS: COLLAGENASE 30 GM TUBE TOP SCH (09:00)
[2017-02-23] MEDS: ZINC SULFATE 220 MG CAP GTB SCH (09:00)
[2017-02-23] MEDS: SODIUM HYPOCHLORITE 0.125% 473 ML BTL IRR SCH (09:00)
[2017-02-23] MEDS: MUPIROCIN 2% 22 GM OINT TOP SCH ×2 (09:00→20:57)
[2017-02-23] MEDS: ENOXAPARIN 40 MG/0.4 ML SYG SC SCH (09:00)
[2017-02-23 09:44] LABS: ANISOCYTOSIS 1+ (0-0); BASOPHILS % (M) 1 % (0-2); EOSINOPHILS % (M) 2 % (0-7); HYPOCHROMASIA 1+ (0-0); MICROCYTOSIS 1+ (0-0); MONOCYTES % (M) 7 % (0-11); PLATELET ESTIMATE DECREASED; POLYCHROMASIA 3+ (0-0)
--- NOTE | 2017-02-23 11:23 | CONS ---
Date/Time of Note Date/Time of Note DATE: 02/23/17 TIME: 11:21 Assessment/Plan Assessment/Plan Additional Assessment/Plan Severe septic shock Sinus tachycardia Respiratory failure Acute decompensated diastolic congestive heart failure Pulmonary hypertension Preserved ejection fraction Tricuspid valve regurgitation Lung cancer -Patient with worsening blood pressure and requirement of additional IV pressor. IV pressors to maintain SBP greater than 90 and/or map above 60. IV fluids as per our nephrology colleagues. Continue antibiotics as per infectious disease. Continue to hold any antihypertensives or AV jesenia blocking agents. Tachycardia is likely manifestation of patient's sepsis and hypotension. Greater than 35 minutes of critical care time spent in care of this patient. Consultation Date/Type/Reason Admit Date/Time Feb 01, 2017 at 15:50 Initial Consult Date 02/01/17 Type of Consultation: cv Referring Provider: DRE LOBATO MD 24 HR Interval Summary Free Text/Dictation Patient seen and examined, required additional IV pressor support secondary to hypotension. Exam/Review of Systems Vital Signs Vitals Vital Signs Date Time Temp Pulse Resp B/P Pulse Ox O2 Delivery O2 Flow Rate FiO2 02/23/17 10:15 102 32 96/68 Mechanical Ventilator 02/23/17 09:00 24 02/23/17 07:00 98.0 02/23/17 05:21 40 Intake and Output 02/22/17 02/22/17 02/23/17 14:59 22:59 06:59 Intake Total 2167 ml 1815.75 ml 1845.00 ml Output Total 800 ml 2075 ml 1600 ml Balance 1367 ml -259.25 ml 245.00 ml Exam Awake, confused at times, intermittently following commands Constitutional: frail Head: normocephalic Neck: other (Tracheostomy) Respiratory: other (Coarse breath sounds bilaterally and decreased at the bases , no wheezing) Cardiovascular: other (S1-S2), regular rate and rhythm (Tachycardic) Gastrointestinal: bowel sounds, distended, soft, tender Extremities: edema Results Result Diagram: 02/23/17 0500 02/23/17 0500 Results 24 hrs Laboratory Tests Test 02/22/17 13:43 02/22/17 16:54 02/22/17 21:16 02/23/17 01:36 Bedside Glucose 78 73 78 91 Test 02/23/17 04:31 02/23/17 05:00 02/23/17 09:02 Bedside Glucose 91 98 White Blood Count 30.6 #H Red Blood Count 2.90 L Hemoglobin 7.8 L Hematocrit 25.4 L Mean Corpuscular Volume 87.6 Mean Corpuscular Hemoglobin 26.9 L Mean Corpuscular Hemoglobin Concent 30.7 L Red Cell Distribution Width 18.4 H Platelet Count 57 L Mean Platelet Volume 11.7 H Neutrophils % Segmented Neutrophils % (Manual) 70 Band Neutrophils % (Manual) 2 Lymphocytes % Lymphocytes % (Manual) 18 Monocytes % Monocytes % (Manual) 7 Eosinophils % Eosinophils % (Manual) 2 Basophils % Basophils % (Manual) 1 Nucleated Red Blood Cells % 0.2 H Neutrophils # (Manual) 21.6 H Band Neutrophils # 0.6 Absolute Lymphocytes (Manual) 5.5 H Lymphocytes # Monocytes # Absolute Monocytes (Manual) 2.1 H Eosinophils # Basophils # Basophils # (Manual) 0.3 H Nucleated Red Blood Cells # Platelet Estimate DECREASED Polychromasia 3+ Hypochromasia 1+ Anisocytosis 1+ Microcytosis 1+ Macrocytosis 1+ Sodium Level 131 L Potassium Level 3.9 Chloride Level 97 Carbon Dioxide Level 25 Anion Gap 13 Blood Urea Nitrogen 42 H Creatinine 1.27 H Glucose Level 87 Calcium Level 9.3 Phosphorus Level 3.4 Magnesium Level 2.3 Total Bilirubin 0.0 L Direct Bilirubin 0.00 Indirect Bilirubin 0.0 Aspartate Amino Transf (AST/SGOT) 29 Alanine Aminotransferase (ALT/SGPT) 15 Alkaline Phosphatase 309 H Total Protein 6.3 Albumin 2.4 L Medications Medications Current Medications Ondansetron HCl (Zofran Inj) 4 mg Q6H PRN IV NAUSEA AND/OR VOMITING Last administered on 02/05/17 09:36; Admin Dose 4 MG; Start 02/01/17 at 22:30 Acetaminophen (Tylenol Tab) 650 mg Q6H PRN PO PAIN LEVEL 1-3 OR FEVER Last administered on 02/19/17 04:25; Admin Dose 650 MG; Start 02/01/17 at 22:30; Status Future Hold Acetaminophen/ Hydrocodone Bitart ([place] (5/325)) 1 tab Q6H PRN PO MODERATE PAIN LEVEL 4-6 Last administered on 02/04/17 21:07; Admin Dose 1 TAB; Start at 22:30; Status Future hold Hydromorphone HCl (Dilaudid) 0.5 mg Q4H PRN IV SEVERE PAIN LEVEL 7-10 Last administered on 02/23/17 02:27; Admin Dose 0.5 MG; Start 02/01/17 at 22:30 Docusate Sodium (Colace) 100 mg Q12H PRN PO CONSTIPATION; Start 02/01/17 at 22: 30 Magnesium Hydroxide (Milk Of Mag) 30 ml DAILY PRN PO CONSTIPATION; Start at 22:30 Bisacodyl (Dulcolax) 5 mg DAILY PRN PO CONSTIPATION; Start 02/01/17 at 22:30 Zolpidem Tartrate (Ambien) 5 mg QHS PRN PO SLEEP; Start 02/01/17 at 22:30 Lansoprazole (Prevacid) 30 mg DAILY@06 GTB Last administered on 02/18/17 05:48 ; Admin Dose 30 MG; Start 02/02/17 at 06:00 Enoxaparin Sodium (Lovenox) 40 mg DAILY SC Last administered on 02/20/17 11:01 ; Admin Dose 40 MG; Start 02/02/17 at 09:00 Ascorbic Acid (Vitamin C) 500 mg BID GTB Last administered on 02/18/17 20:54; Admin Dose 500 MG; Start 02/02/17 at 09:00 Diazepam (Valium) 5 mg DAILY PRN GTB ANXIETY Last administered on 02/08/17 20: 27; Admin Dose 5 MG; Start 02/01/17 at 22:30 Duloxetine HCl (Cymbalta) 20 mg DAILY GTB Last administered on 02/18/17 08:45; Admin Dose 20 MG; Start 02/02/17 at 09:00 Multivitamins Therapeutic (Theragran) 1 tab DAILY GTB Last administered on 08:45; Admin Dose 1 TAB; Start 02/02/17 at 09:00 Zinc Sulfate (Zinc Sulfate) 220 mg DAILY GTB Last administered on 02/18/17 08: 45; Admin Dose 220 MG; Start 02/02/17 at 09:00 Lactobacillus Acidophilus (Florajen3 Capsule) 1 each TID NGT Last administered on 02/18/17 20:54; Admin Dose 1 EACH; Start 02/02/17 at 09:00 Lactulose (Enulose) 20 gm BID PO Last administered on 02/18/17 20:54; Admin Dose 20 GM; Start 02/02/17 at 09:00 Collagenase (Santyl) 1 applic DAILY TOP Last administered on 02/22/17 08:40; Admin Dose 1 APPLIC; Start 02/02/17 at 09:00 Collagenase 1 applic 1 applic PRN PRN TOP PRN; Start 02/02/17 at 04:00 Linezolid 300 ml @ 300 mls/hr Q12 IVPB Last administered on 02/23/17 09:00; Admin Dose 300 MLS/HR; Start 02/09/17 at 15:00 Metronidazole 100 ml @ 100 mls/hr Q8 IVPB Last administered on 02/23/17 06:10 ; Admin Dose 100 MLS/HR; Start 02/09/17 at 14:00 Colistimethate Sodium/Sodium Chloride (Coly-Mycin/NS) 100 ml @ 200 mls/hr Q12H IVPB Last administered on 02/23/17 04:19; Admin Dose 200 MLS/HR; Start at 04:00 Sodium Hypochlorite (Dakin'S (1/4 Strength)) 1 applic DAILY IRR Last administered on 02/22/17 08:38; Admin Dose 1 APPLIC; Start 02/10/17 at 13:30 IV Flush (NS 10 ml) 10 ml PRN PRN IV FLUSH LINE; Start 02/10/17 at 15:30 Mupirocin (Bactroban) 1 applic BID TOP Last administered on 02/22/17 21:12; Admin Dose 1 APPLIC; Start 02/11/17 at 14:00 Dextrose 25 ml 25 ml IACHS PRN IV DECREASED GLUCOSE Last administered on 10:01; Admin Dose 25 ML; Start 02/13/17 at 08:30 Total Parenteral Nutrition (Tpn) 1,000 ml @ 60 mls/hr [id number] IV Last administered on 02/22/17 18:20; Admin Dose 60 MLS/HR; Start 02/13/17 at 16:00 Dextrose (D50w Syringe) 50 ml IV PRN IV DECREASED GLUCOSE Last administered on 02/13/17 18:07; Admin Dose 50 ML; Start 02/13/17 at 14:30 Fentanyl (Duragesic 25 Mcg/Hr Patch) 1 patch Q72H TRANSDERM Last administered on 02/20/17 17:54; Admin Dose 1 PATCH; Start 02/14/17 at 15:30 IV Flush (NS 10 ml) 10 ml PRN PRN IV IV PROTOCOL; Start 02/15/17 at 21:30 Diagnostic Test (Pha) 1 ea 1 ea Q4 XX Last administered on 02/22/17 17:03; Admin Dose 1 EA; Start 02/20/17 at 09:00 Dextrose 1,000 ml @ 50 mls/hr Q20H IV Last administered on 02/22/17 21:17; Admin Dose 50 MLS/HR; Start 02/20/17 at 09:30 Acetaminophen 100 ml @ 400 mls/hr Q6H PRN IVPB FEVER Last administered on 01:38; Admin Dose 400 MLS/HR; Start 02/20/17 at 17:30 Caspofungin 50 mg/ Sodium Chloride 250 ml @ 250 mls/hr Q24H IVPB Last administered on 02/22/17 13:01; Admin Dose 250 MLS/HR; Start 02/22/17 at 13:00 Norepinephrine 32 mg/Dextrose 250 ml @ 0.46 mls/hr TITRATE IV ; Start 02/23/17 at 08:00 Phenylephrine HCl/ Dextrose (Mane-Syneph/D5W) 250 ml @ 18.75 mls/ hr TITRATE IV Last administered on 02/23/17 09:00; Admin Dose 5.62 MLS/HR; Start 02/23/17 at 08:00 Artemio Tipton DO Feb 23, 2017 11:23
--- NOTE | 2017-02-23 11:30 | PN ---
DATE: 02/23/2017 SUBJECTIVE DATA: Patient Ricky remains intermittently agitated but awake on mechanical ventilation and vasopressor support. OBJECTIVE DATA: VITAL SIGNS: Temperature 98, pulse is 100, blood pressure 100/70, O2 sat 96 percent on FiO2 as stated. HEENT: Trach site appears clean and intact. HEART: Tachycardic, S1 and S2, no gallops, rubs or murmurs. LUNGS: Chest diminished air entry bilaterally. ABDOMEN: Soft, nontender. No guarding or rebound. EXTREMITIES: No cyanosis, clubbing, 1+ edema. NEUROLOGIC: Generalized weakness. LABORATORY AND DIAGNOSTIC DATA: White count 30.6, hemoglobin 7.8, platelets of 57,000. BUN 42, creatinine 1.27. Blood cultures pending. Sputum cultures show polymicrobial species. IMPRESSION: 1. Polymicrobial septic shock 2. Vent dependent respiratory failure. 3. History of lung cancer. 4. Dysphagia. PLAN: 1. Continue with mechanical ventilation. 2. Vasopressors. 3. DVT and GI prophylaxis. Dictated By: Bobo Lopez MD /[email or web address] /Document#: [id number]
[2017-02-23] MEDS: TPN 1,000 ML IV SCH (12:00)
--- NOTE | 2017-02-23 12:34 | PN ---
Date/Time of Note Date/Time of Note DATE: 02/23/17 TIME: 12:27 Assessment/Plan Lines/Catheters IV Catheter Type (from Nrs): PICC Line George in Place (from Nrs): Yes Assessment/Plan Chief Complaint/Hosp Course 1. Multiple decubitus ulcers with debris and slough, with likely osteo -Offload -Optimize nutrition -Vitamin C -Local care with dakins -Debridement sacrococcyx prn 2. 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 palliative 3. Abdominal distention: possible ileus (likely as per CT since contrast in colon & bowel function - no obstruction noted on imaging and patient having bowel function)' repeat SBFT: likely adynamic ileus; continues to have flatus with smear bm: no abdominal pain -decompression -monitor 4. Sepsis with tachycardia, hypotension and hypoglycemia: UTI +/- Bacteremia +/ - PNA + wounds/osteo; on multiple pressors; wbc improving -supportive -abx per sensitivities -pulmonary toilet -optimize blood sugar -supportive 5. Acute on chronic diastolic heart failure -Judicious fluid management -Cardiac optimization 6. Hypoalbuminemia: inflammation/infection +/- malnutrition -as above -nutrition optimization 7. Depression. -Medical management 8. Hypothyroidism by history; TSH elevated -Synthroid 9. Normocytic anemia: chronic disease vs. acute bleed; no rogerio bleed noted: s/ p PRBC transfusion -monitor -transfuse as needed -per heme/onc 10. Chronic pain syndrome: patient with metastasis -continue pain management; consider non narcotic adjuncts 11. Electrolyte imbalance: -optimize lytes Patient seen and examined in collaboration with Dr. Christian Sinclair. Thank you. Problems: Subjective 24 Hr Interval Summary Continues in ICU care. Now with addition of another pressor. Tachycardia but wbc improved. Awake and responsive. +flatus, smear bm per rn. No fevers, chills , sob, n/v/d/dysuria, cp, palpitation. Exam/Review of Systems Vital Signs Vitals Vital Signs Date Time Temp Pulse Resp B/P Pulse Ox O2 Delivery O2 Flow Rate FiO2 02/23/17 12:00 126 02/23/17 10:15 32 96/68 Mechanical Ventilator 02/23/17 09:00 24 02/23/17 07:00 98.0 02/23/17 05:21 40 Intake and Output 02/22/17 02/22/17 02/23/17 14:59 22:59 06:59 Intake Total 2167 ml 1815.75 ml 1845.00 ml Output Total 800 ml 2075 ml 1600 ml Balance 1367 ml -259.25 ml 245.00 ml Exam Free Text/Dictation Constitutional: awake, No distress, diaphoretic Psych: anxious Head: atraumatic, normocephalic Eyes: nl conjunctiva, nl lids, nl sclera ENMT: mucosa pink and dry, nl external ears & nose, nl lips; poor dentition, ng tube Neck: non-tender, other (tracheostomy, non-reddened, no drainage noted), supple Respiratory: normal effort, no wheezing, diminished, min thin sputum Cardiovascular: nl pulses, regular rate and rhythm, ST Gastrointestinal: non-tender, other (gtube, site non-tender, non-reddened), min distention; hypoactive bowel sounds, abd soft Musculoskeletal: nl extremities to inspection Extremities: normal pulses, pedal Edema +2, cool temp bilat feet Neurological: nl mental status, No nl strength (gen weakness) Skin: No rash; wounds (sacral wound packed with mod drainage) Results Result Diagram: 02/23/17 0500 02/23/17 0500 JERRY SAHU NP Feb 23, 2017 12:34
--- NOTE | 2017-02-23 13:53 | CONS ---
Date/Time of Note Date/Time of Note DATE: 02/23/17 TIME: 13:52 Assessment/Plan Assessment/Plan Chief Complaint/Hosp Course -Anemia, POST PRBC transfuse packed red blood cells as needed continue to monitor H&H. COMPLEX, MULTIFACTORIAL -Left lung squamous carcinoma, NOW WITH POS LIVER METS supportive care no aggressive treatment planned HYPERCALCEMIA POST AREDIA CA-IMPROVED - SBO NOW ON CONSERVATIVE MANAGEMENT -Sepsis, most likely secondary to urinary tract infection and possible postobstructive pneumonia. Dr. Coleman is following infection disease consultation, follow-up on cultures, continue antibiotics per ID. -Hyponatremia, nephrology f-up, continue IV fluids per renal. -Ventilator dependent respiratory failure with tracheostomy, continue breathing treatments. -COPD -Dysphagia with PEG -History of cardiopulmonary arrest -Multiple wounds present on admission, that is post debridement at last admission. -Hypothyroidism -Chronic urinary retention with George catheter PROGNOSIS- POOR Problems: Consultation Date/Type/Reason Admit Date/Time Feb 01, 2017 at 15:50 Initial Consult Date 02/08/17 Type of Consultation: hemeon Referring Provider: DRE LOBATO MD Exam/Review of Systems Vital Signs Vitals Vital Signs Date Time Temp Pulse Resp B/P Pulse Ox O2 Delivery O2 Flow Rate FiO2 02/23/17 13:30 125 31 96/71 02/23/17 13:00 90 02/23/17 12:00 98.8 02/23/17 10:15 Mechanical Ventilator 02/23/17 05:21 40 Intake and Output 02/22/17 02/22/17 02/23/17 15:00 23:00 07:00 Intake Total 2215 ml 1719.00 ml 1895.00 ml Output Total 850 ml 2025 ml 1520 ml Balance 1365 ml -306.00 ml 375.00 ml Results Result Diagram: 02/23/17 0500 02/23/17 0500 Results 24 hrs Laboratory Tests Test 02/22/17 16:54 02/22/17 21:16 02/23/17 01:36 02/23/17 04:31 Bedside Glucose 73 78 91 91 Test 02/23/17 05:00 02/23/17 09:02 White Blood Count 30.6 #H Red Blood Count 2.90 L Hemoglobin 7.8 L Hematocrit 25.4 L Mean Corpuscular Volume 87.6 Mean Corpuscular Hemoglobin 26.9 L Mean Corpuscular Hemoglobin Concent 30.7 L Red Cell Distribution Width 18.4 H Platelet Count 57 L Mean Platelet Volume 11.7 H Neutrophils % Segmented Neutrophils % (Manual) 70 Band Neutrophils % (Manual) 2 Lymphocytes % Lymphocytes % (Manual) 18 Monocytes % Monocytes % (Manual) 7 Eosinophils % Eosinophils % (Manual) 2 Basophils % Basophils % (Manual) 1 Nucleated Red Blood Cells % 0.2 H Neutrophils # (Manual) 21.6 H Band Neutrophils # 0.6 Absolute Lymphocytes (Manual) 5.5 H Lymphocytes # Monocytes # Absolute Monocytes (Manual) 2.1 H Eosinophils # Basophils # Basophils # (Manual) 0.3 H Nucleated Red Blood Cells # Platelet Estimate DECREASED Polychromasia 3+ Hypochromasia 1+ Anisocytosis 1+ Microcytosis 1+ Macrocytosis 1+ Sodium Level 131 L Potassium Level 3.9 Chloride Level 97 Carbon Dioxide Level 25 Anion Gap 13 Blood Urea Nitrogen 42 H Creatinine 1.27 H Glucose Level 87 Calcium Level 9.3 Phosphorus Level 3.4 Magnesium Level 2.3 Total Bilirubin 0.0 L Direct Bilirubin 0.00 Indirect Bilirubin 0.0 Aspartate Amino Transf (AST/SGOT) 29 Alanine Aminotransferase (ALT/SGPT) 15 Alkaline Phosphatase 309 H Total Protein 6.3 Albumin 2.4 L Bedside Glucose 98 Medications Medications Current Medications Ondansetron HCl (Zofran Inj) 4 mg Q6H PRN IV NAUSEA AND/OR VOMITING Last administered on 02/05/17 09:36; Admin Dose 4 MG; Start 02/01/17 at 22:30 Acetaminophen (Tylenol Tab) 650 mg Q6H PRN PO PAIN LEVEL 1-3 OR FEVER Last administered on 02/19/17 04:25; Admin Dose 650 MG; Start 02/01/17 at 22:30; Status Future Hold Acetaminophen/ Hydrocodone Bitart ([place] (5/325)) 1 tab Q6H PRN PO MODERATE PAIN LEVEL 4-6 Last administered on 02/04/17 21:07; Admin Dose 1 TAB; Start at 22:30; Status Future hold Hydromorphone HCl (Dilaudid) 0.5 mg Q4H PRN IV SEVERE PAIN LEVEL 7-10 Last administered on 02/23/17 02:27; Admin Dose 0.5 MG; Start 02/01/17 at 22:30 Docusate Sodium (Colace) 100 mg Q12H PRN PO CONSTIPATION; Start 02/01/17 at 22: 30 Magnesium Hydroxide (Milk Of Mag) 30 ml DAILY PRN PO CONSTIPATION; Start at 22:30 Bisacodyl (Dulcolax) 5 mg DAILY PRN PO CONSTIPATION; Start 02/01/17 at 22:30 Zolpidem Tartrate (Ambien) 5 mg QHS PRN PO SLEEP; Start 02/01/17 at 22:30 Lansoprazole (Prevacid) 30 mg DAILY@06 GTB Last administered on 02/18/17 05:48 ; Admin Dose 30 MG; Start 02/02/17 at 06:00 Enoxaparin Sodium (Lovenox) 40 mg DAILY SC Last administered on 02/20/17 11:01 ; Admin Dose 40 MG; Start 02/02/17 at 09:00 Ascorbic Acid (Vitamin C) 500 mg BID GTB Last administered on 02/18/17 20:54; Admin Dose 500 MG; Start 02/02/17 at 09:00 Diazepam (Valium) 5 mg DAILY PRN GTB ANXIETY Last administered on 02/08/17 20: 27; Admin Dose 5 MG; Start 02/01/17 at 22:30 Duloxetine HCl (Cymbalta) 20 mg DAILY GTB Last administered on 02/18/17 08:45; Admin Dose 20 MG; Start 02/02/17 at 09:00 Multivitamins Therapeutic (Theragran) 1 tab DAILY GTB Last administered on 08:45; Admin Dose 1 TAB; Start 02/02/17 at 09:00 Zinc Sulfate (Zinc Sulfate) 220 mg DAILY GTB Last administered on 02/18/17 08: 45; Admin Dose 220 MG; Start 02/02/17 at 09:00 Lactobacillus Acidophilus (Florajen3 Capsule) 1 each TID NGT Last administered on 02/18/17 20:54; Admin Dose 1 EACH; Start 02/02/17 at 09:00 Lactulose (Enulose) 20 gm BID PO Last administered on 02/18/17 20:54; Admin Dose 20 GM; Start 02/02/17 at 09:00 Collagenase (Santyl) 1 applic DAILY TOP Last administered on 02/22/17 08:40; Admin Dose 1 APPLIC; Start 02/02/17 at 09:00 Collagenase 1 applic 1 applic PRN PRN TOP PRN; Start 02/02/17 at 04:00 Linezolid 300 ml @ 300 mls/hr Q12 IVPB Last administered on 02/23/17 09:00; Admin Dose 300 MLS/HR; Start 02/09/17 at 15:00 Metronidazole 100 ml @ 100 mls/hr Q8 IVPB Last administered on 02/23/17 06:10 ; Admin Dose 100 MLS/HR; Start 02/09/17 at 14:00 Colistimethate Sodium/Sodium Chloride (Coly-Mycin/NS) 100 ml @ 200 mls/hr Q12H IVPB Last administered on 02/23/17 04:19; Admin Dose 200 MLS/HR; Start at 04:00 Sodium Hypochlorite (Dakin'S (1/4 Strength)) 1 applic DAILY IRR Last administered on 02/22/17 08:38; Admin Dose 1 APPLIC; Start 02/10/17 at 13:30 IV Flush (NS 10 ml) 10 ml PRN PRN IV FLUSH LINE; Start 02/10/17 at 15:30 Mupirocin (Bactroban) 1 applic BID TOP Last administered on 02/22/17 21:12; Admin Dose 1 APPLIC; Start 02/11/17 at 14:00 Dextrose 25 ml 25 ml IACHS PRN IV DECREASED GLUCOSE Last administered on 10:01; Admin Dose 25 ML; Start 02/13/17 at 08:30 Total Parenteral Nutrition (Tpn) 1,000 ml @ 60 mls/hr [id number] IV Last administered on 02/23/17 12:00; Admin Dose 60 MLS/HR; Start 02/13/17 at 16:00 Dextrose (D50w Syringe) 50 ml IV PRN IV DECREASED GLUCOSE Last administered on 02/13/17 18:07; Admin Dose 50 ML; Start 02/13/17 at 14:30 Fentanyl (Duragesic 25 Mcg/Hr Patch) 1 patch Q72H TRANSDERM Last administered on 02/20/17 17:54; Admin Dose 1 PATCH; Start 02/14/17 at 15:30 IV Flush (NS 10 ml) 10 ml PRN PRN IV IV PROTOCOL; Start 02/15/17 at 21:30 Diagnostic Test (Pha) 1 ea 1 ea Q4 XX Last administered on 02/22/17 17:03; Admin Dose 1 EA; Start 02/20/17 at 09:00 Dextrose 1,000 ml @ 50 mls/hr Q20H IV Last administered on 02/22/17 21:17; Admin Dose 50 MLS/HR; Start 02/20/17 at 09:30 Acetaminophen 100 ml @ 400 mls/hr Q6H PRN IVPB FEVER Last administered on 01:38; Admin Dose 400 MLS/HR; Start 02/20/17 at 17:30 Caspofungin 50 mg/ Sodium Chloride 250 ml @ 250 mls/hr Q24H IVPB Last administered on 02/22/17 13:01; Admin Dose 250 MLS/HR; Start 02/22/17 at 13:00 Norepinephrine 32 mg/Dextrose 250 ml @ 0.46 mls/hr TITRATE IV ; Start 02/23/17 at 08:00 Phenylephrine HCl/ Dextrose (Mane-Syneph/D5W) 250 ml @ 18.75 mls/ hr TITRATE IV Last administered on 02/23/17 09:00; Admin Dose 5.62 MLS/HR; Start 02/23/17 at 08:00 DYLLAN CARRION MD Feb 23, 2017 13:53
[2017-02-23] MEDS: CASPOFUNGIN 50 MG in SOD CHLORIDE 0.9% 250 ML IVPB SCH (13:54)
--- NOTE | 2017-02-23 14:20 | PN ---
Date/Time of Note Date/Time of Note DATE: 02/23/17 TIME: 14:19 Assessment/Plan Lines/Catheters IV Catheter Type (from Nrsg): PICC Line Urinary Cath still in place: Yes Subjective 24 Hr Interval Summary Constitutional: requiring IVF, requiring O2 Exam/Review of Systems Vital Signs Vitals Vital Signs Date Time Temp Pulse Resp B/P Pulse Ox O2 Delivery O2 Flow Rate FiO2 02/23/17 13:30 125 31 96/71 02/23/17 13:00 90 02/23/17 12:00 98.8 02/23/17 10:15 Mechanical Ventilator 02/23/17 05:21 40 Intake and Output 02/22/17 02/22/17 02/23/17 15:00 23:00 07:00 Intake Total 2215 ml 1719.00 ml 1895.00 ml Output Total 850 ml 2025 ml 1520 ml Balance 1365 ml -306.00 ml 375.00 ml Exam Constitutional: alert, frail Respiratory: diminished breath sounds Cardiovascular: nl pulses Gastrointestinal: distended, soft Musculoskeletal: muscle weakness Results Result Diagram: 02/23/17 0500 02/23/17 0500 Results 24 hrs Laboratory Tests Test 02/22/17 16:54 02/22/17 21:16 02/23/17 01:36 02/23/17 04:31 Bedside Glucose 73 78 91 91 Test 02/23/17 05:00 02/23/17 09:02 02/23/17 14:00 White Blood Count 30.6 #H Red Blood Count 2.90 L Hemoglobin 7.8 L Hematocrit 25.4 L Mean Corpuscular Volume 87.6 Mean Corpuscular Hemoglobin 26.9 L Mean Corpuscular Hemoglobin Concent 30.7 L Red Cell Distribution Width 18.4 H Platelet Count 57 L Mean Platelet Volume 11.7 H Neutrophils % Segmented Neutrophils % (Manual) 70 Band Neutrophils % (Manual) 2 Lymphocytes % Lymphocytes % (Manual) 18 Monocytes % Monocytes % (Manual) 7 Eosinophils % Eosinophils % (Manual) 2 Basophils % Basophils % (Manual) 1 Nucleated Red Blood Cells % 0.2 H Neutrophils # (Manual) 21.6 H Band Neutrophils # 0.6 Absolute Lymphocytes (Manual) 5.5 H Lymphocytes # Monocytes # Absolute Monocytes (Manual) 2.1 H Eosinophils # Basophils # Basophils # (Manual) 0.3 H Nucleated Red Blood Cells # Platelet Estimate DECREASED Polychromasia 3+ Hypochromasia 1+ Anisocytosis 1+ Microcytosis 1+ Macrocytosis 1+ Sodium Level 131 L Potassium Level 3.9 Chloride Level 97 Carbon Dioxide Level 25 Anion Gap 13 Blood Urea Nitrogen 42 H Creatinine 1.27 H Glucose Level 87 Calcium Level 9.3 Phosphorus Level 3.4 Magnesium Level 2.3 Total Bilirubin 0.0 L Direct Bilirubin 0.00 Indirect Bilirubin 0.0 Aspartate Amino Transf (AST/SGOT) 29 Alanine Aminotransferase (ALT/SGPT) 15 Alkaline Phosphatase 309 H Total Protein 6.3 Albumin 2.4 L Bedside Glucose 98 86 Medications Medications Current Medications Ondansetron HCl (Zofran Inj) 4 mg Q6H PRN IV NAUSEA AND/OR VOMITING Last administered on 02/05/17 09:36; Admin Dose 4 MG; Start 02/01/17 at 22:30 Acetaminophen (Tylenol Tab) 650 mg Q6H PRN PO PAIN LEVEL 1-3 OR FEVER Last administered on 02/19/17 04:25; Admin Dose 650 MG; Start 02/01/17 at 22:30; Status Future Hold Acetaminophen/ Hydrocodone Bitart ([place] (5/325)) 1 tab Q6H PRN PO MODERATE PAIN LEVEL 4-6 Last administered on 02/04/17 21:07; Admin Dose 1 TAB; Start at 22:30; Status Future hold Hydromorphone HCl (Dilaudid) 0.5 mg Q4H PRN IV SEVERE PAIN LEVEL 7-10 Last administered on 02/23/17 02:27; Admin Dose 0.5 MG; Start 02/01/17 at 22:30 Docusate Sodium (Colace) 100 mg Q12H PRN PO CONSTIPATION; Start 02/01/17 at 22: 30 Magnesium Hydroxide (Milk Of Mag) 30 ml DAILY PRN PO CONSTIPATION; Start at 22:30 Bisacodyl (Dulcolax) 5 mg DAILY PRN PO CONSTIPATION; Start 02/01/17 at 22:30 Zolpidem Tartrate (Ambien) 5 mg QHS PRN PO SLEEP; Start 02/01/17 at 22:30 Lansoprazole (Prevacid) 30 mg DAILY@06 GTB Last administered on 02/18/17 05:48 ; Admin Dose 30 MG; Start 02/02/17 at 06:00 Enoxaparin Sodium (Lovenox) 40 mg DAILY SC Last administered on 02/20/17 11:01 ; Admin Dose 40 MG; Start 02/02/17 at 09:00 Ascorbic Acid (Vitamin C) 500 mg BID GTB Last administered on 02/18/17 20:54; Admin Dose 500 MG; Start 02/02/17 at 09:00 Diazepam (Valium) 5 mg DAILY PRN GTB ANXIETY Last administered on 02/08/17 20: 27; Admin Dose 5 MG; Start 02/01/17 at 22:30 Duloxetine HCl (Cymbalta) 20 mg DAILY GTB Last administered on 02/18/17 08:45; Admin Dose 20 MG; Start 02/02/17 at 09:00 Multivitamins Therapeutic (Theragran) 1 tab DAILY GTB Last administered on 08:45; Admin Dose 1 TAB; Start 02/02/17 at 09:00 Zinc Sulfate (Zinc Sulfate) 220 mg DAILY GTB Last administered on 02/18/17 08: 45; Admin Dose 220 MG; Start 02/02/17 at 09:00 Lactobacillus Acidophilus (Florajen3 Capsule) 1 each TID NGT Last administered on 02/18/17 20:54; Admin Dose 1 EACH; Start 02/02/17 at 09:00 Lactulose (Enulose) 20 gm BID PO Last administered on 02/18/17 20:54; Admin Dose 20 GM; Start 02/02/17 at 09:00 Collagenase (Santyl) 1 applic DAILY TOP Last administered on 02/22/17 08:40; Admin Dose 1 APPLIC; Start 02/02/17 at 09:00 Collagenase 1 applic 1 applic PRN PRN TOP PRN; Start 02/02/17 at 04:00 Linezolid 300 ml @ 300 mls/hr Q12 IVPB Last administered on 02/23/17 09:00; Admin Dose 300 MLS/HR; Start 02/09/17 at 15:00 Metronidazole 100 ml @ 100 mls/hr Q8 IVPB Last administered on 02/23/17 06:10 ; Admin Dose 100 MLS/HR; Start 02/09/17 at 14:00 Colistimethate Sodium/Sodium Chloride (Coly-Mycin/NS) 100 ml @ 200 mls/hr Q12H IVPB Last administered on 02/23/17 04:19; Admin Dose 200 MLS/HR; Start at 04:00 Sodium Hypochlorite (Dakin'S (1/4 Strength)) 1 applic DAILY IRR Last administered on 02/22/17 08:38; Admin Dose 1 APPLIC; Start 02/10/17 at 13:30 IV Flush (NS 10 ml) 10 ml PRN PRN IV FLUSH LINE; Start 02/10/17 at 15:30 Mupirocin (Bactroban) 1 applic BID TOP Last administered on 02/22/17 21:12; Admin Dose 1 APPLIC; Start 02/11/17 at 14:00 Dextrose 25 ml 25 ml IACHS PRN IV DECREASED GLUCOSE Last administered on 10:01; Admin Dose 25 ML; Start 02/13/17 at 08:30 Total Parenteral Nutrition (Tpn) 1,000 ml @ 60 mls/hr [id number] IV Last administered on 02/23/17 12:00; Admin Dose 60 MLS/HR; Start 02/13/17 at 16:00 Dextrose (D50w Syringe) 50 ml IV PRN IV DECREASED GLUCOSE Last administered on 02/13/17 18:07; Admin Dose 50 ML; Start 02/13/17 at 14:30 Fentanyl (Duragesic 25 Mcg/Hr Patch) 1 patch Q72H TRANSDERM Last administered on 02/20/17 17:54; Admin Dose 1 PATCH; Start 02/14/17 at 15:30 IV Flush (NS 10 ml) 10 ml PRN PRN IV IV PROTOCOL; Start 02/15/17 at 21:30 Diagnostic Test (Pha) 1 ea 1 ea Q4 XX Last administered on 02/22/17 17:03; Admin Dose 1 EA; Start 02/20/17 at 09:00 Dextrose 1,000 ml @ 50 mls/hr Q20H IV Last administered on 02/22/17 21:17; Admin Dose 50 MLS/HR; Start 02/20/17 at 09:30 Acetaminophen 100 ml @ 400 mls/hr Q6H PRN IVPB FEVER Last administered on 01:38; Admin Dose 400 MLS/HR; Start 02/20/17 at 17:30 Caspofungin 50 mg/ Sodium Chloride 250 ml @ 250 mls/hr Q24H IVPB Last administered on 02/23/17 13:54; Admin Dose 250 MLS/HR; Start 02/22/17 at 13:00 Norepinephrine 32 mg/Dextrose 250 ml @ 0.46 mls/hr TITRATE IV ; Start 02/23/17 at 08:00 Phenylephrine HCl/ Dextrose (Mane-Syneph/D5W) 250 ml @ 18.75 mls/ hr TITRATE IV Last administered on 02/23/17 09:00; Admin Dose 5.62 MLS/HR; Start 02/23/17 at 08:00 VIKASH CASTANEDA Feb 23, 2017 14:20
[2017-02-23] MEDS: HYDROCODONE/APAP (5/325) TAB PO PRN (14:58)
--- NOTE | 2017-02-23 16:07 | CONS ---
Date/Time of Note Date/Time of Note DATE: 02/23/17 TIME: 16:03 Assessment/Plan Assessment/Plan Additional Assessment/Plan 1. 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 Shock multifactorial on levophed 3. Recurrent Multidrug Resistant Urinary tract infection 4. Sacral wound 5. Chronic resp failure 6.S/P Tracheostomy, S/p PEG tube placement 7. Lung CA- Squamous Cell CA 8. Hypercalcemia due to squamous cell CA of lung- s/p Pamidronate 30mg IV on Plan: - on IVF and TPN , Na 131, Cr 1.27 -S/p 3 % saline on02/09/17- s/p tolvaptan 15 mg [id number] x 1 dose on 02/13/17- Na 131 today - Ca came down to 9.3- s/p One dose of pamidronate 30mg IV x 1 on 02/15/17 -will follow up Consultation Date/Type/Reason Admit Date/Time Feb 01, 2017 at 15:50 Initial Consult Date 02/08/17 Type of Consultation: NEPHROLOGY Referring Provider: DRE LOBATO MD 24 HR Interval Summary Free Text/Dictation Cr bumped to 1.27, Na 131 Exam/Review of Systems Vital Signs Vitals Vital Signs Date Time Temp Pulse Resp B/P Pulse Ox O2 Delivery O2 Flow Rate FiO2 02/23/17 15:00 133 38 97/81 92 Mechanical Ventilator 02/23/17 12:00 98.8 02/23/17 05:21 40 Intake and Output 02/22/17 02/22/17 02/23/17 15:00 23:00 07:00 Intake Total 2215 ml 1719.00 ml 1895.00 ml Output Total 850 ml 2025 ml 1520 ml Balance 1365 ml -306.00 ml 375.00 ml Exam Constitutional: non-verbal ENMT: other (+ trachoestomy on ventilator ) Neck: supple Respiratory: congested cough, crackles/rales, diminished breath sounds, other ( Bilateral Coarse BS+) Cardiovascular: regular rate and rhythm Gastrointestinal: distended, soft Musculoskeletal: other (cachectic LE ) Neurological: other (Non verbal ) Results Result Diagram: 02/23/17 0500 02/23/17 0500 Results 24 hrs Laboratory Tests Test 02/22/17 16:54 02/22/17 21:16 02/23/17 01:36 02/23/17 04:31 Bedside Glucose 73 78 91 91 Test 02/23/17 05:00 02/23/17 09:02 02/23/17 14:00 White Blood Count 30.6 #H Red Blood Count 2.90 L Hemoglobin 7.8 L Hematocrit 25.4 L Mean Corpuscular Volume 87.6 Mean Corpuscular Hemoglobin 26.9 L Mean Corpuscular Hemoglobin Concent 30.7 L Red Cell Distribution Width 18.4 H Platelet Count 57 L Mean Platelet Volume 11.7 H Neutrophils % Segmented Neutrophils % (Manual) 70 Band Neutrophils % (Manual) 2 Lymphocytes % Lymphocytes % (Manual) 18 Monocytes % Monocytes % (Manual) 7 Eosinophils % Eosinophils % (Manual) 2 Basophils % Basophils % (Manual) 1 Nucleated Red Blood Cells % 0.2 H Neutrophils # (Manual) 21.6 H Band Neutrophils # 0.6 Absolute Lymphocytes (Manual) 5.5 H Lymphocytes # Monocytes # Absolute Monocytes (Manual) 2.1 H Eosinophils # Basophils # Basophils # (Manual) 0.3 H Nucleated Red Blood Cells # Platelet Estimate DECREASED Polychromasia 3+ Hypochromasia 1+ Anisocytosis 1+ Microcytosis 1+ Macrocytosis 1+ Sodium Level 131 L Potassium Level 3.9 Chloride Level 97 Carbon Dioxide Level 25 Anion Gap 13 Blood Urea Nitrogen 42 H Creatinine 1.27 H Glucose Level 87 Calcium Level 9.3 Phosphorus Level 3.4 Magnesium Level 2.3 Total Bilirubin 0.0 L Direct Bilirubin 0.00 Indirect Bilirubin 0.0 Aspartate Amino Transf (AST/SGOT) 29 Alanine Aminotransferase (ALT/SGPT) 15 Alkaline Phosphatase 309 H Total Protein 6.3 Albumin 2.4 L Bedside Glucose 98 86 Medications Medications Current Medications Ondansetron HCl (Zofran Inj) 4 mg Q6H PRN IV NAUSEA AND/OR VOMITING Last administered on 02/05/17 09:36; Admin Dose 4 MG; Start 02/01/17 at 22:30 Acetaminophen (Tylenol Tab) 650 mg Q6H PRN PO PAIN LEVEL 1-3 OR FEVER Last administered on 02/19/17 04:25; Admin Dose 650 MG; Start 02/01/17 at 22:30; Status Future Hold Acetaminophen/ Hydrocodone Bitart ([place] (5/325)) 1 tab Q6H PRN PO MODERATE PAIN LEVEL 4-6 Last administered on 02/23/17 14:58; Admin Dose 1 TAB; Start at 22:30; Status Future hold Hydromorphone HCl (Dilaudid) 0.5 mg Q4H PRN IV SEVERE PAIN LEVEL 7-10 Last administered on 02/23/17 02:27; Admin Dose 0.5 MG; Start 02/01/17 at 22:30 Docusate Sodium (Colace) 100 mg Q12H PRN PO CONSTIPATION; Start 02/01/17 at 22: 30 Magnesium Hydroxide (Milk Of Mag) 30 ml DAILY PRN PO CONSTIPATION; Start at 22:30 Bisacodyl (Dulcolax) 5 mg DAILY PRN PO CONSTIPATION; Start 02/01/17 at 22:30 Zolpidem Tartrate (Ambien) 5 mg QHS PRN PO SLEEP; Start 02/01/17 at 22:30 Lansoprazole (Prevacid) 30 mg DAILY@06 GTB Last administered on 02/18/17 05:48 ; Admin Dose 30 MG; Start 02/02/17 at 06:00 Enoxaparin Sodium (Lovenox) 40 mg DAILY SC Last administered on 02/20/17 11:01 ; Admin Dose 40 MG; Start 02/02/17 at 09:00 Ascorbic Acid (Vitamin C) 500 mg BID GTB Last administered on 02/18/17 20:54; Admin Dose 500 MG; Start 02/02/17 at 09:00 Diazepam (Valium) 5 mg DAILY PRN GTB ANXIETY Last administered on 02/08/17 20: 27; Admin Dose 5 MG; Start 02/01/17 at 22:30 Duloxetine HCl (Cymbalta) 20 mg DAILY GTB Last administered on 02/18/17 08:45; Admin Dose 20 MG; Start 02/02/17 at 09:00 Multivitamins Therapeutic (Theragran) 1 tab DAILY GTB Last administered on 08:45; Admin Dose 1 TAB; Start 02/02/17 at 09:00 Zinc Sulfate (Zinc Sulfate) 220 mg DAILY GTB Last administered on 02/18/17 08: 45; Admin Dose 220 MG; Start 02/02/17 at 09:00 Lactobacillus Acidophilus (Florajen3 Capsule) 1 each TID NGT Last administered on 02/18/17 20:54; Admin Dose 1 EACH; Start 02/02/17 at 09:00 Lactulose (Enulose) 20 gm BID PO Last administered on 02/18/17 20:54; Admin Dose 20 GM; Start 02/02/17 at 09:00 Collagenase (Santyl) 1 applic DAILY TOP Last administered on 02/22/17 08:40; Admin Dose 1 APPLIC; Start 02/02/17 at 09:00 Collagenase 1 applic 1 applic PRN PRN TOP PRN; Start 02/02/17 at 04:00 Linezolid 300 ml @ 300 mls/hr Q12 IVPB Last administered on 02/23/17 09:00; Admin Dose 300 MLS/HR; Start 02/09/17 at 15:00 Metronidazole (Flagyl 500 Mg (Pmx)) 100 ml @ 100 mls/hr Q8 IVPB Last administered on 02/23/17 15:14; Admin Dose 100 MLS/HR; Start 02/09/17 at 14:00 Sodium Hypochlorite (Dakin'S (1/4 Strength)) 1 applic DAILY IRR Last administered on 02/22/17 08:38; Admin Dose 1 APPLIC; Start 02/10/17 at 13:30 IV Flush (NS 10 ml) 10 ml PRN PRN IV FLUSH LINE; Start 02/10/17 at 15:30 Mupirocin (Bactroban) 1 applic BID TOP Last administered on 02/22/17 21:12; Admin Dose 1 APPLIC; Start 02/11/17 at 14:00 Dextrose 25 ml 25 ml IACHS PRN IV DECREASED GLUCOSE Last administered on 10:01; Admin Dose 25 ML; Start 02/13/17 at 08:30 Total Parenteral Nutrition (Tpn) 1,000 ml @ 60 mls/hr [id number] IV Last administered on 02/23/17 12:00; Admin Dose 60 MLS/HR; Start 02/13/17 at 16:00 Dextrose (D50w Syringe) 50 ml IV PRN IV DECREASED GLUCOSE Last administered on 02/13/17 18:07; Admin Dose 50 ML; Start 02/13/17 at 14:30 Fentanyl (Duragesic 25 Mcg/Hr Patch) 1 patch Q72H TRANSDERM Last administered on 02/23/17 15:38; Admin Dose 1 PATCH; Start 02/14/17 at 15:30 IV Flush (NS 10 ml) 10 ml PRN PRN IV IV PROTOCOL; Start 02/15/17 at 21:30 Diagnostic Test (Pha) 1 ea 1 ea Q4 XX Last administered on 02/23/17 13:00; Admin Dose 1 EA; Start 02/20/17 at 09:00 Dextrose 1,000 ml @ 50 mls/hr Q20H IV Last administered on 02/22/17 21:17; Admin Dose 50 MLS/HR; Start 02/20/17 at 09:30 Acetaminophen 100 ml @ 400 mls/hr Q6H PRN IVPB FEVER Last administered on 01:38; Admin Dose 400 MLS/HR; Start 02/20/17 at 17:30 Caspofungin 50 mg/ Sodium Chloride 250 ml @ 250 mls/hr Q24H IVPB Last administered on 02/23/17 13:54; Admin Dose 250 MLS/HR; Start 02/22/17 at 13:00 Norepinephrine 32 mg/Dextrose 250 ml @ 0.46 mls/hr TITRATE IV ; Start 02/23/17 at 08:00 Phenylephrine HCl 80 mg/Dextrose 250 ml @ 18.75 mls/ hr TITRATE IV Last administered on 02/23/17 09:00; Admin Dose 5.62 MLS/HR; Start 02/23/17 at 08:00 Colistimethate Sodium/Sodium Chloride (Coly-Mycin/NS) 100 ml @ 200 mls/hr Q24H IVPB ; Start 02/24/17 at 04:00 DIONNE SAUCEDA MD Feb 23, 2017 16:07
--- NOTE | 2017-02-23 16:57 | PN ---
DATE: 02/23/2017 SUBJECTIVE DATA: Patient remains unchanged. She is awake, comfortable, on multiple pressors. T-max last night was 101.2 to current 98, pulse 102, respirations 30, blood pressure 96/68, saturation 94 percent on vent. LABORATORY DATA: WBC 30.6, H and H 7.8 and 25.4, platelets 57, BUN 42, creatinine 1.27. MICROBIOLOGY: Blood cultures since February 21 remain negative. Sputum culture grew Pseudomonas stenotrophomonas maltophilia, Proteus mirabilis. Sacral wound culture grew Providencia stuartii, Acinetobacter baumannii, MRSA and VRE. ANTIMICROBIALS: The patient is on Cancidas, Zyvox, Flagyl, and colistin, indwelling trach, PEG, George, NG tube, PICC line placed on February 10. PHYSICAL EXAMINATION: GENERAL: This is a cachectic, chronically ill-appearing, elderly woman, who is awake, in no distress. HEENT: Head atraumatic, normocephalic. Sclerae anicteric. Buccal mucosa dry. NECK: Supple. Tracheostomy present. CHEST: Rise symmetrical. Breath sounds diminished at the bases. HEART: S1, S2. Tachycardic, regular. ABDOMEN: Soft. Bowel sounds hypoactive. EXTREMITIES: Without cyanosis. SKIN: With multiple unstageable wounds. ASSESSMENT: 1. Sepsis with shock and multisystem organ failure. 2. Multiple chronic infected wounds with wound cultures growing multidrug resistant organisms and evidence of bone involvement of the sacrum per radiologic findings. 3. Multidrug resistant urinary tract infection. 4. Ileus with possible partial small bowel obstruction. 5. Methicillin-resistant Staphylococcus aureus nares colonization. 6. Lung carcinoma. 7. Chronic respiratory failure. 8. Cachexia. 9. History of Clostridium difficile colitis. 10. Allergies to penicillin. PLAN: The patient remains hemodynamically unstable. Overall doing poorly. We will continue her on current antimicrobials. Follow recommendations of consultants. 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 Dictated By: Johnny Chapa NP /altagracia/maegan /Document#: [id number]
[2017-02-23] MEDS ORDERED: LORAZEPAM 2 MG INJ IV PRN (17:30)
[2017-02-23] MEDS: DIAZEPAM 5 MG TAB GTB PRN (20:32)
[2017-02-23] MEDS: DEXTROSE 10% 1,000 ML IV SCH (21:34)
[2017-02-24] VITALS (70 sets, daily range): BP systolic 45–128; BP diastolic 31–100; PULSE 0–130; RESP 14–48
[2017-02-24] MEDS: ACCU-CHEK XX SCH ×5 (01:00→17:08)
[2017-02-24] MEDS: ALBUTEROL 18 GM INHALER INH SCH ×3 (01:26→15:26)
[2017-02-24] MEDS: IPRATROPIUM (HFA) 12.9 GM INHALER INH SCH ×3 (01:26→15:26)
[2017-02-24] MEDS: TPN 1,000 ML IV SCH ×2 (01:44→18:40)
[2017-02-24] MEDS: PHENYLephrine 80 MG in DEXTROSE 5% 242 ML IV SCH ×3 (02:31→17:26)
[2017-02-24] MEDS ORDERED: COLISTIMETHATE 150 MG in SOD CHLORIDE 0.9% 100 ML IVPB SCH (04:00)
[2017-02-24 05:28] LABS: ABNORMAL IP MESSAGE 1; HEMATOCRIT 24.5 % (37.0-47.0); HEMOGLOBIN 7.4 g/dl (12.0-16.0); MEAN CORPUSCULAR HEMOGLOBIN 26.1 pg (29.0-33.0); MEAN CORPUSCULAR HGB CONC 30.2 g/dl (32.0-37.0); MEAN CORPUSCULAR VOLUME 86.6 fl (82.0-101.0); MEAN PLATELET VOLUME 12.9 fl (7.4-10.4); NUCLEATED RED BLOOD CELLS% 0.1 /100WBC (0.0-0.0); PLATELET COUNT 55 10^3/UL (140-415); RED BLOOD COUNT 2.83 10^6/ul (4.20-5.40); RED CELL DISTRIBUTION WIDTH 18.6 % (11.5-14.5); WHITE BLOOD COUNT 29.2 10^3/ul (4.8-10.8)
[2017-02-24] MEDS: LANSOPRAZOLE 30 MG CAP GTB SCH (05:38)
[2017-02-24 05:40] LABS: ALBUMIN 2.4 g/dl (3.3-4.9); ALBUMIN/GLOBULIN RATIO 0.63; CALCIUM 9.3 mg/dl (8.4-10.2); CREATININE 1.56 mg/dl (0.44-1.00); POTASSIUM 5.1 mmol/L (3.5-5.1); TOTAL PROTEIN 6.2 g/dl (6.1-8.1)
[2017-02-24] MEDS: metroNIDAZOLE 500 MG/NS (PMX) 100 ML IVPB SCH ×2 (05:51→14:58)
[2017-02-24 06:01] LABS: POSITIVE DIFF @See below
--- NOTE | 2017-02-24 07:04 | PN ---
Date/Time of Note Date/Time of Note DATE: 02/24/17 TIME: 06:55 Assessment/Plan Lines/Catheters IV Catheter Type (from Nrs): PICC Line George in Place (from Nrs): Yes Assessment/Plan Chief Complaint/Hosp Course 1. Multiple decubitus ulcers with debris and slough, with likely osteo; -Offload -Optimize nutrition -Vitamin C -Local care with dakins-will increase frequency -Debridement sacrococcyx prn 2. 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 palliative 3. Abdominal distention: possible ileus (likely as per CT since contrast in colon & bowel function - no obstruction noted on imaging and patient having bowel function)' repeat SBFT: likely adynamic ileus; no flatus/bm today with large amount of gastric aspirate -decompression; LIS -monitor 4. Sepsis with tachycardia, hypotension and hypoglycemia: UTI +/- Bacteremia +/ - PNA + wounds/osteo; on multiple pressors; wbc improving -supportive -abx per sensitivities -pulmonary toilet -optimize blood sugar -supportive 5. Acute on chronic diastolic heart failure -Judicious fluid management -Cardiac optimization 6. Hypoalbuminemia: inflammation/infection +/- malnutrition -as above -nutrition optimization 7. Depression. -Medical management 8. Hypothyroidism by history; TSH elevated -Synthroid 9. Normocytic anemia: chronic disease vs. acute bleed; no rogerio bleed noted: s/ p PRBC transfusion -monitor -transfuse as needed -per heme/onc 10. Chronic pain syndrome: patient with metastasis -continue pain management; consider non narcotic adjuncts 11. Electrolyte imbalance: -optimize lytes Patient seen and examined in collaboration with Dr. Christian Sinclair. Thank you. Problems: Subjective 24 Hr Interval Summary Continues in ICU on multiple pressors. Tachycardia. TF attempted to be restarted yesterday, however there was increase in abdominal distention and large amounts of drainage suctioned from gtube. No bm/flatus. Min abdominal discomfort. No fevers, chills, n/v/d/dysuria, fevers, chills, sob, sz. Comfortable on vent. Mod drainage from wounds with min odor. Exam/Review of Systems Vital Signs Vitals Vital Signs Date Time Temp Pulse Resp B/P Pulse Ox O2 Delivery O2 Flow Rate FiO2 02/24/17 05:37 116 29 100 40 9/9/17 00:45 90/78 02/24/17 00:00 97.8 02/23/17 20:00 Mechanical Ventilator Intake and Output 02/23/17 02/23/17 02/24/17 14:59 22:59 06:59 Intake Total 1623.11 ml 1064.23 ml 1143.0 ml Output Total 350 ml 1160 ml Balance 1273.11 ml -95.77 ml 1143.0 ml Exam Free Text/Dictation Constitutional: sleepy, arouses easily, No distress, diaphoretic Psych: anxious Head: atraumatic, normocephalic Eyes: nl conjunctiva, nl lids, nl sclera ENMT: mucosa pink and dry, nl external ears & nose, nl lips; poor dentition, ng tube Neck: non-tender, other (tracheostomy, non-reddened, no drainage noted), supple Respiratory: normal effort, no wheezing, diminished, min thin sputum Cardiovascular: nl pulses, regular rate and rhythm, ST Gastrointestinal: min-tender, other (gtube, site non-tender, non-reddened), mod distention; hypoactive bowel sounds, Musculoskeletal: nl extremities to inspection Extremities: normal pulses, pedal Edema +2, cool temp bilat feet Neurological: nl mental status, No nl strength (gen weakness) Skin: No rash; wounds (sacral wound packed with mod drainage) Results Result Diagram: 02/24/17 0445 02/24/17 0445 JERRY SAHU NP Feb 24, 2017 07:04
[2017-02-24] MEDS: LACTULOSE 30ML CUP PO SCH (08:42)
[2017-02-24] MEDS: L ACIDOPHIL/B LACTIS/B LONGUM CAPSULE NGT SCH ×2 (08:42→12:14)
[2017-02-24] MEDS: LINEZOLID 600 MG/D5W (PMX) 300 ML IVPB SCH (08:42)
[2017-02-24] MEDS: MULTIVITAMINS THERAPEUTIC TAB GTB SCH (08:43)
[2017-02-24] MEDS: ASCORBIC ACID 500 MG TAB GTB SCH (08:43)
[2017-02-24] MEDS: DULOXETINE 20 MG CAP DR GTB SCH (08:43)
[2017-02-24] MEDS: ZINC SULFATE 220 MG CAP GTB SCH (08:44)
[2017-02-24] MEDS: COLLAGENASE 30 GM TUBE TOP SCH (08:45)
[2017-02-24] MEDS: SODIUM HYPOCHLORITE 0.125% 473 ML BTL IRR SCH (08:45)
[2017-02-24] MEDS: MUPIROCIN 2% 22 GM OINT TOP SCH (08:45)
[2017-02-24] MEDS: ENOXAPARIN 40 MG/0.4 ML SYG SC SCH (08:47)
[2017-02-24 09:20] LABS: ANISOCYTOSIS 1+ (0-0); EOSINOPHILS % (M) 1 % (0-7); METAMYELOCYTES %M 1 % (0-0); MICROCYTOSIS 1+ (0-0); MONOCYTES % (M) 8 % (0-11); PLATELET ESTIMATE DECREASED; POIKILOCYTOSIS 2+ (0-0); POLYCHROMASIA 1+ (0-0); SPHEROCYTES 1+ (0-0)
--- NOTE | 2017-02-24 09:35 | CONS ---
Date/Time of Note Date/Time of Note DATE: 02/24/17 TIME: 09:33 Consult Date/Type/Reason Admit Date/Time Feb 01, 2017 at 15:50 Initial Consult Date 02/01/17 Type of Consultation: Pulmonary Ordering Provider: DRE LOBATO MD Subjective Continues mechanical ventilation. Awake alert, continues vasopressor support. Objective Vital Signs Date Time Temp Pulse Resp B/P Pulse Ox O2 Delivery O2 Flow Rate FiO2 02/24/17 08:30 118 35 73/52 76 Mechanical Ventilator 02/24/17 08:00 98.0 02/24/17 05:37 40 Intake and Output 02/23/17 02/23/17 02/24/17 15:00 23:00 07:00 Intake Total 1474.36 ml 1088.73 ml 1001.0 ml Output Total 390 ml 1100 ml Balance 1084.36 ml -11.27 ml 1001.0 ml Exam PHYSICAL EXAMINATION GENERAL: Elderly lady on mechanical ventilation appears comfortable at rest VITAL SIGNS: see below. HEENT: Pupils equal, round, and reactive to light. Tracheostomy site clean and intact. CARDIAC: S1, S2, 1/6 systolic ejection murmur CHEST: Diminished air entry bilaterally. ABDOMEN: Mildly distended. Bowel sounds present no guarding or rebound EXTREMITIES: No cyanosis, clubbing edema +1 NEUROLOGIC: Generalized weakness Results/Medications Result Diagram: 02/24/1744402/24/175 Results 24 hrs Laboratory Tests Test 02/23/17 14:00 02/23/17 17:02 02/23/17 21:29 02/24/17 01:42 Bedside Glucose 86 85 99 76 Test 02/24/17 04:45 02/24/17 05:17 02/24/17 08:40 White Blood Count 29.2 H Red Blood Count 2.83 L Hemoglobin 7.4 L Hematocrit 24.5 L Mean Corpuscular Volume 86.6 Mean Corpuscular Hemoglobin 26.1 L Mean Corpuscular Hemoglobin Concent 30.2 L Red Cell Distribution Width 18.6 H Platelet Count 55 L Mean Platelet Volume 12.9 H Neutrophils % Segmented Neutrophils % (Manual) 52 Band Neutrophils % (Manual) 6 H Lymphocytes % Lymphocytes % (Manual) 32 Monocytes % Monocytes % (Manual) 8 Eosinophils % Eosinophils % (Manual) 1 Basophils % Metamyelocytes % (manual) 1 H Nucleated Red Blood Cells % 0.1 H Neutrophils # (Manual) 15.7 H Band Neutrophils # 1.7 H Absolute Lymphocytes (Manual) 9.3 H Lymphocytes # Monocytes # Absolute Monocytes (Manual) 2.3 H Eosinophils # Basophils # Metamyelocytes # 0.2 H Nucleated Red Blood Cells # Platelet Estimate DECREASED Polychromasia 1+ Poikilocytosis 2+ Anisocytosis 1+ Microcytosis 1+ Spherocytes 1+ Sodium Level 126 L Potassium Level 5.1 Chloride Level 89 L Carbon Dioxide Level 22 Anion Gap 20 #H Blood Urea Nitrogen 45 H Creatinine 1.56 H Glucose Level 95 Calcium Level 9.3 Total Bilirubin 0.0 L Direct Bilirubin 0.00 Indirect Bilirubin 0.0 Aspartate Amino Transf (AST/SGOT) 31 Alanine Aminotransferase (ALT/SGPT) 16 Alkaline Phosphatase 280 H Total Protein 6.2 Albumin 2.4 L Globulin 3.80 H Albumin/Globulin Ratio 0.63 Bedside Glucose 72 71 Medications Current Medications Ondansetron HCl (Zofran Inj) 4 mg Q6H PRN IV NAUSEA AND/OR VOMITING Last administered on 02/05/17 09:36; Admin Dose 4 MG; Start 02/01/17 at 22:30 Acetaminophen (Tylenol Tab) 650 mg Q6H PRN PO PAIN LEVEL 1-3 OR FEVER Last administered on 02/19/17 04:25; Admin Dose 650 MG; Start 02/01/17 at 22:30; Status Future Hold Acetaminophen/ Hydrocodone Bitart ([place] (5/325)) 1 tab Q6H PRN PO MODERATE PAIN LEVEL 4-6 Last administered on 02/23/17 14:58; Admin Dose 1 TAB; Start at 22:30; Status Future hold Hydromorphone HCl (Dilaudid) 0.5 mg Q4H PRN IV SEVERE PAIN LEVEL 7-10 Last administered on 02/23/17 02:27; Admin Dose 0.5 MG; Start 02/01/17 at 22:30 Docusate Sodium (Colace) 100 mg Q12H PRN PO CONSTIPATION; Start 02/01/17 at 22: 30 Magnesium Hydroxide (Milk Of Mag) 30 ml DAILY PRN PO CONSTIPATION; Start at 22:30 Bisacodyl (Dulcolax) 5 mg DAILY PRN PO CONSTIPATION; Start 02/01/17 at 22:30 Zolpidem Tartrate (Ambien) 5 mg QHS PRN PO SLEEP; Start 02/01/17 at 22:30 Lansoprazole (Prevacid) 30 mg DAILY@06 GTB Last administered on 02/24/17 05:38 ; Admin Dose 30 MG; Start 02/02/17 at 06:00 Enoxaparin Sodium (Lovenox) 40 mg DAILY SC Last administered on 02/24/17 08:47 ; Admin Dose 40 MG; Start 02/02/17 at 09:00 Ascorbic Acid (Vitamin C) 500 mg BID GTB Last administered on 02/23/17 20:32; Admin Dose 500 MG; Start 02/02/17 at 09:00 Diazepam (Valium) 5 mg DAILY PRN GTB ANXIETY Last administered on 02/23/17 20: 32; Admin Dose 5 MG; Start 02/01/17 at 22:30 Duloxetine HCl (Cymbalta) 20 mg DAILY GTB Last administered on 02/18/17 08:45; Admin Dose 20 MG; Start 02/02/17 at 09:00 Multivitamins Therapeutic (Theragran) 1 tab DAILY GTB Last administered on 08:45; Admin Dose 1 TAB; Start 02/02/17 at 09:00 Zinc Sulfate (Zinc Sulfate) 220 mg DAILY GTB Last administered on 02/18/17 08: 45; Admin Dose 220 MG; Start 02/02/17 at 09:00 Lactobacillus Acidophilus (Florajen3 Capsule) 1 each TID NGT Last administered on 02/18/17 20:54; Admin Dose 1 EACH; Start 02/02/17 at 09:00 Lactulose (Enulose) 20 gm BID PO Last administered on 02/23/17 20:32; Admin Dose 20 GM; Start 02/02/17 at 09:00 Collagenase (Santyl) 1 applic DAILY TOP Last administered on 02/24/17 08:45; Admin Dose 1 APPLIC; Start 02/02/17 at 09:00 Collagenase 1 applic 1 applic PRN PRN TOP PRN; Start 02/02/17 at 04:00 Linezolid 300 ml @ 300 mls/hr Q12 IVPB Last administered on 02/24/17 08:42; Admin Dose 300 MLS/HR; Start 02/09/17 at 15:00 Metronidazole (Flagyl 500 Mg (Pmx)) 100 ml @ 100 mls/hr Q8 IVPB Last administered on 02/24/17 05:51; Admin Dose 100 MLS/HR; Start 02/09/17 at 14:00 Sodium Hypochlorite (Dakin'S (1/4 Strength)) 1 applic DAILY IRR Last administered on 02/24/17 08:45; Admin Dose 1 APPLIC; Start 02/10/17 at 13:30 IV Flush (NS 10 ml) 10 ml PRN PRN IV FLUSH LINE; Start 02/10/17 at 15:30 Mupirocin (Bactroban) 1 applic BID TOP Last administered on 02/24/17 08:45; Admin Dose 1 APPLIC; Start 02/11/17 at 14:00 Dextrose 25 ml 25 ml IACHS PRN IV DECREASED GLUCOSE Last administered on 10:01; Admin Dose 25 ML; Start 02/13/17 at 08:30 Total Parenteral Nutrition (Tpn) 1,000 ml @ 60 mls/hr [id number] IV Last administered on 02/24/17 01:44; Admin Dose 60 MLS/HR; Start 02/13/17 at 16:00 Dextrose (D50w Syringe) 50 ml IV PRN IV DECREASED GLUCOSE Last administered on 02/13/17 18:07; Admin Dose 50 ML; Start 02/13/17 at 14:30 Fentanyl (Duragesic 25 Mcg/Hr Patch) 1 patch Q72H TRANSDERM Last administered on 02/23/17 15:38; Admin Dose 1 PATCH; Start 02/14/17 at 15:30 IV Flush (NS 10 ml) 10 ml PRN PRN IV IV PROTOCOL; Start 02/15/17 at 21:30 Diagnostic Test (Pha) 1 ea 1 ea Q4 XX Last administered on 02/24/17 08:42; Admin Dose 1 EA; Start 02/20/17 at 09:00 Dextrose 1,000 ml @ 50 mls/hr Q20H IV Last administered on 02/23/17 21:34; Admin Dose 50 MLS/HR; Start 02/20/17 at 09:30 Acetaminophen 100 ml @ 400 mls/hr Q6H PRN IVPB FEVER Last administered on 22:06; Admin Dose 400 MLS/HR; Start 02/20/17 at 17:30 Caspofungin 50 mg/ Sodium Chloride 250 ml @ 250 mls/hr Q24H IVPB Last administered on 02/23/17 13:54; Admin Dose 250 MLS/HR; Start 02/22/17 at 13:00 Norepinephrine 32 mg/Dextrose 250 ml @ 0.46 mls/hr TITRATE IV Last administered on 02/23/17 16:00; Admin Dose 14.06 MLS/HR; Start 02/23/17 at 08:00 Phenylephrine HCl 80 mg/Dextrose 250 ml @ 18.75 mls/ hr TITRATE IV Last administered on 02/24/17 02:31; Admin Dose 18.75 MLS/HR; Start 02/23/17 at 08:00 Colistimethate Sodium/Sodium Chloride (Coly-Mycin/NS) 100 ml @ 200 mls/hr Q24H IVPB Last administered on 02/24/17 05:09; Admin Dose 200 MLS/HR; Start 02/24/17 at 04:00 Assessment/Plan Chief Complaint/Hosp Course Assessment 1. Vent dependent respiratory failure 2. Status post septic shock with multiorgan failure. 3. Advanced lung cancer 4. Persistent leukocytosis 5. Lactic acidosis 6. Ileus currently on TPN 7. Anemia of chronic disease. No evidence of acute GI bleed. 8. Hyponatremia with renal insufficiency Plan 1. Continue mechanical ventilation 2. continue broad-spectrum antibiotics 3. Surgical recommendations 4. DVT GI prophylaxis 5. Monitor H&H 6. Renal recs Continue ICU care. Overall prognosis guarded. Problems: CASSIE VACA MD, [facility] Feb 24, 2017 09:35
--- NOTE | 2017-02-24 10:20 | PN ---
Date/Time of Note Date/Time of Note DATE: 02/24/17 TIME: 10:19 Assessment/Plan VTE Prophylaxis VTE Prophylaxis Intervention: SCD's Lines/Catheters IV Catheter Type (from Nrsg): Peripheral IV Central line still needed: No Urinary Cath still in place: Yes Reason Cath still needed: urinary retention Assessment/Plan Assessment/Plan Severe septic shock Sinus tachycardia Respiratory failure Acute decompensated diastolic congestive heart failure Pulmonary hypertension Preserved ejection fraction Tricuspid valve regurgitation Lung cancer Hypotension sinus tachycardia -Patient with worsening blood pressure and requirement of additional IV pressor. IV pressors to maintain SBP greater than 90 and/or map above 60. IV fluids as per our nephrology colleagues. Continue antibiotics as per infectious disease. Continue to hold any antihypertensives or AV jesenia blocking agents. Tachycardia is likely manifestation of patient's sepsis and hypotension Subjective 24 Hr Interval Summary Free Text/Dictation The patient with no cahnge Exam/Review of Systems Vital Signs Vitals Vital Signs Date Time Temp Pulse Resp B/P Pulse Ox O2 Delivery O2 Flow Rate FiO2 02/24/17 08:30 118 35 73/52 76 Mechanical Ventilator 02/24/17 08:00 98.0 02/24/17 05:37 40 Intake and Output 02/23/17 02/23/17 02/24/17 15:00 23:00 07:00 Intake Total 1474.36 ml 1088.73 ml 1001.0 ml Output Total 390 ml 1100 ml Balance 1084.36 ml -11.27 ml 1001.0 ml Results Result Diagram: 02/24/17 0445 02/24/17 0445 Results 24 hrs Laboratory Tests Test 02/23/17 14:00 02/23/17 17:02 02/23/17 21:29 02/24/17 01:42 Bedside Glucose 86 85 99 76 Test 02/24/17 04:45 02/24/17 05:17 02/24/17 08:40 White Blood Count 29.2 H Red Blood Count 2.83 L Hemoglobin 7.4 L Hematocrit 24.5 L Mean Corpuscular Volume 86.6 Mean Corpuscular Hemoglobin 26.1 L Mean Corpuscular Hemoglobin Concent 30.2 L Red Cell Distribution Width 18.6 H Platelet Count 55 L Mean Platelet Volume 12.9 H Neutrophils % Segmented Neutrophils % (Manual) 52 Band Neutrophils % (Manual) 6 H Lymphocytes % Lymphocytes % (Manual) 32 Monocytes % Monocytes % (Manual) 8 Eosinophils % Eosinophils % (Manual) 1 Basophils % Metamyelocytes % (manual) 1 H Nucleated Red Blood Cells % 0.1 H Neutrophils # (Manual) 15.7 H Band Neutrophils # 1.7 H Absolute Lymphocytes (Manual) 9.3 H Lymphocytes # Monocytes # Absolute Monocytes (Manual) 2.3 H Eosinophils # Basophils # Metamyelocytes # 0.2 H Nucleated Red Blood Cells # Platelet Estimate DECREASED Polychromasia 1+ Poikilocytosis 2+ Anisocytosis 1+ Microcytosis 1+ Spherocytes 1+ Sodium Level 126 L Potassium Level 5.1 Chloride Level 89 L Carbon Dioxide Level 22 Anion Gap 20 #H Blood Urea Nitrogen 45 H Creatinine 1.56 H Glucose Level 95 Calcium Level 9.3 Total Bilirubin 0.0 L Direct Bilirubin 0.00 Indirect Bilirubin 0.0 Aspartate Amino Transf (AST/SGOT) 31 Alanine Aminotransferase (ALT/SGPT) 16 Alkaline Phosphatase 280 H Total Protein 6.2 Albumin 2.4 L Globulin 3.80 H Albumin/Globulin Ratio 0.63 Bedside Glucose 72 71 Medications Medications Current Medications Ondansetron HCl (Zofran Inj) 4 mg Q6H PRN IV NAUSEA AND/OR VOMITING Last administered on 02/05/17 09:36; Admin Dose 4 MG; Start 02/01/17 at 22:30 Acetaminophen (Tylenol Tab) 650 mg Q6H PRN PO PAIN LEVEL 1-3 OR FEVER Last administered on 02/19/17 04:25; Admin Dose 650 MG; Start 02/01/17 at 22:30; Status Future Hold Acetaminophen/ Hydrocodone Bitart ([place] (5/325)) 1 tab Q6H PRN PO MODERATE PAIN LEVEL 4-6 Last administered on 02/23/17 14:58; Admin Dose 1 TAB; Start at 22:30; Status Future hold Hydromorphone HCl (Dilaudid) 0.5 mg Q4H PRN IV SEVERE PAIN LEVEL 7-10 Last administered on 02/23/17 02:27; Admin Dose 0.5 MG; Start 02/01/17 at 22:30 Docusate Sodium (Colace) 100 mg Q12H PRN PO CONSTIPATION; Start 02/01/17 at 22: 30 Magnesium Hydroxide (Milk Of Mag) 30 ml DAILY PRN PO CONSTIPATION; Start at 22:30 Bisacodyl (Dulcolax) 5 mg DAILY PRN PO CONSTIPATION; Start 02/01/17 at 22:30 Zolpidem Tartrate (Ambien) 5 mg QHS PRN PO SLEEP; Start 02/01/17 at 22:30 Lansoprazole (Prevacid) 30 mg DAILY@06 GTB Last administered on 02/24/17 05:38 ; Admin Dose 30 MG; Start 02/02/17 at 06:00 Enoxaparin Sodium (Lovenox) 40 mg DAILY SC Last administered on 02/24/17 08:47 ; Admin Dose 40 MG; Start 02/02/17 at 09:00 Ascorbic Acid (Vitamin C) 500 mg BID GTB Last administered on 02/23/17 20:32; Admin Dose 500 MG; Start 02/02/17 at 09:00 Diazepam (Valium) 5 mg DAILY PRN GTB ANXIETY Last administered on 02/23/17 20: 32; Admin Dose 5 MG; Start 02/01/17 at 22:30 Duloxetine HCl (Cymbalta) 20 mg DAILY GTB Last administered on 02/18/17 08:45; Admin Dose 20 MG; Start 02/02/17 at 09:00 Multivitamins Therapeutic (Theragran) 1 tab DAILY GTB Last administered on 08:45; Admin Dose 1 TAB; Start 02/02/17 at 09:00 Zinc Sulfate (Zinc Sulfate) 220 mg DAILY GTB Last administered on 02/18/17 08: 45; Admin Dose 220 MG; Start 02/02/17 at 09:00 Lactobacillus Acidophilus (Florajen3 Capsule) 1 each TID NGT Last administered on 02/18/17 20:54; Admin Dose 1 EACH; Start 02/02/17 at 09:00 Lactulose (Enulose) 20 gm BID PO Last administered on 02/23/17 20:32; Admin Dose 20 GM; Start 02/02/17 at 09:00 Collagenase (Santyl) 1 applic DAILY TOP Last administered on 02/24/17 08:45; Admin Dose 1 APPLIC; Start 02/02/17 at 09:00 Collagenase 1 applic 1 applic PRN PRN TOP PRN; Start 02/02/17 at 04:00 Linezolid 300 ml @ 300 mls/hr Q12 IVPB Last administered on 02/24/17 08:42; Admin Dose 300 MLS/HR; Start 02/09/17 at 15:00 Metronidazole (Flagyl 500 Mg (Pmx)) 100 ml @ 100 mls/hr Q8 IVPB Last administered on 02/24/17 05:51; Admin Dose 100 MLS/HR; Start 02/09/17 at 14:00 Sodium Hypochlorite (Dakin'S (1/4 Strength)) 1 applic DAILY IRR Last administered on 02/24/17 08:45; Admin Dose 1 APPLIC; Start 02/10/17 at 13:30 IV Flush (NS 10 ml) 10 ml PRN PRN IV FLUSH LINE; Start 02/10/17 at 15:30 Mupirocin (Bactroban) 1 applic BID TOP Last administered on 02/24/17 08:45; Admin Dose 1 APPLIC; Start 02/11/17 at 14:00 Dextrose 25 ml 25 ml IACHS PRN IV DECREASED GLUCOSE Last administered on 10:01; Admin Dose 25 ML; Start 02/13/17 at 08:30 Total Parenteral Nutrition (Tpn) 1,000 ml @ 60 mls/hr [id number] IV Last administered on 02/24/17 01:44; Admin Dose 60 MLS/HR; Start 02/13/17 at 16:00 Dextrose (D50w Syringe) 50 ml IV PRN IV DECREASED GLUCOSE Last administered on 02/13/17 18:07; Admin Dose 50 ML; Start 02/13/17 at 14:30 Fentanyl (Duragesic 25 Mcg/Hr Patch) 1 patch Q72H TRANSDERM Last administered on 02/23/17 15:38; Admin Dose 1 PATCH; Start 02/14/17 at 15:30 IV Flush (NS 10 ml) 10 ml PRN PRN IV IV PROTOCOL; Start 02/15/17 at 21:30 Diagnostic Test (Pha) 1 ea 1 ea Q4 XX Last administered on 02/24/17 08:42; Admin Dose 1 EA; Start 02/20/17 at 09:00 Dextrose 1,000 ml @ 50 mls/hr Q20H IV Last administered on 02/23/17 21:34; Admin Dose 50 MLS/HR; Start 02/20/17 at 09:30 Acetaminophen 100 ml @ 400 mls/hr Q6H PRN IVPB FEVER Last administered on 22:06; Admin Dose 400 MLS/HR; Start 02/20/17 at 17:30 Caspofungin 50 mg/ Sodium Chloride 250 ml @ 250 mls/hr Q24H IVPB Last administered on 02/23/17 13:54; Admin Dose 250 MLS/HR; Start 02/22/17 at 13:00 Norepinephrine 32 mg/Dextrose 250 ml @ 0.46 mls/hr TITRATE IV Last administered on 02/23/17 16:00; Admin Dose 14.06 MLS/HR; Start 02/23/17 at 08:00 Phenylephrine HCl 80 mg/Dextrose 250 ml @ 18.75 mls/ hr TITRATE IV Last administered on 02/24/17 02:31; Admin Dose 18.75 MLS/HR; Start 02/23/17 at 08:00 Colistimethate Sodium/Sodium Chloride (Coly-Mycin/NS) 100 ml @ 200 mls/hr Q24H IVPB Last administered on 02/24/17 05:09; Admin Dose 200 MLS/HR; Start 02/24/17 at 04:00 RALPH LUCAS MD Feb 24, 2017 10:20
[2017-02-24] MEDS: DIAZEPAM 5 MG TAB GTB PRN (10:43)
[2017-02-24] MEDS: HYDROmorphONE 1 MG/ML SYG IV PRN (11:43)
[2017-02-24] MEDS: CASPOFUNGIN 50 MG in SOD CHLORIDE 0.9% 250 ML IVPB SCH (13:37)
[2017-02-24] MEDS: DEXTROSE 10% 1,000 ML IV SCH (13:38)
--- NOTE | 2017-02-24 14:13 | CONS ---
Date/Time of Note Date/Time of Note DATE: 02/24/17 TIME: 14:11 Assessment/Plan Assessment/Plan Additional Assessment/Plan 1. 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 Shock multifactorial on levophed 3. Recurrent Multidrug Resistant Urinary tract infection 4. Sacral wound 5. Chronic resp failure 6.S/P Tracheostomy, S/p PEG tube placement 7. Lung CA- Squamous Cell CA 8. Hypercalcemia due to squamous cell CA of lung- s/p Pamidronate 30mg IV on Plan: - on TPN , Na 126, Cr 1.56- Urien output very low, will give albumin + NS followed by IV lasix BP runs very low on two pressors, -S/p 3 % saline on02/09/17- s/p tolvaptan 15 mg [id number] x 1 dose on 02/13/17 - Ca came down to 9.3- s/p One dose of pamidronate 30mg IV x 1 on 02/15/17 -will follow up pt willl be a very poor candidate for dialysis due to his comorbidities Consultation Date/Type/Reason Admit Date/Time Feb 01, 2017 at 15:50 Initial Consult Date 02/08/17 Type of Consultation: NEPHROLOGY Referring Provider: DRE LOBATO MD 24 HR Interval Summary Free Text/Dictation pt not doign well, RR in 40s, BP low, on Two pressors, Urien output dropping down Exam/Review of Systems Vital Signs Vitals Vital Signs Date Time Temp Pulse Resp B/P Pulse Ox O2 Delivery O2 Flow Rate FiO2 02/24/17 12:45 121 39 128/100 02/24/17 12:30 Mechanical Ventilator 02/24/17 12:00 98.9 02/24/17 11:30 95 40 Intake and Output 02/23/17 02/23/17 02/24/17 15:00 23:00 07:00 Intake Total 1474.36 ml 1088.73 ml 1146.5 ml Output Total 390 ml 1100 ml Balance 1084.36 ml -11.27 ml 1146.5 ml Exam Constitutional: non-verbal ENMT: other (+ trachoestomy on ventilator ) Neck: supple Respiratory: congested cough, crackles/rales, diminished breath sounds, other ( Bilateral Coarse BS+) Cardiovascular: regular rate and rhythm Gastrointestinal: distended, soft Musculoskeletal: other (cachectic LE ) Neurological: other (Non verbal ) Results Result Diagram: 02/24/175 02/24/175 Results 24 hrs Laboratory Tests Test 02/23/17 17:02 02/23/17 21:29 02/24/17 01:42 02/24/17 04:45 Bedside Glucose 85 99 76 White Blood Count 29.2 H Red Blood Count 2.83 L Hemoglobin 7.4 L Hematocrit 24.5 L Mean Corpuscular Volume 86.6 Mean Corpuscular Hemoglobin 26.1 L Mean Corpuscular Hemoglobin Concent 30.2 L Red Cell Distribution Width 18.6 H Platelet Count 55 L Mean Platelet Volume 12.9 H Neutrophils % Segmented Neutrophils % (Manual) 52 Band Neutrophils % (Manual) 6 H Lymphocytes % Lymphocytes % (Manual) 32 Monocytes % Monocytes % (Manual) 8 Eosinophils % Eosinophils % (Manual) 1 Basophils % Metamyelocytes % (manual) 1 H Nucleated Red Blood Cells % 0.1 H Neutrophils # (Manual) 15.7 H Band Neutrophils # 1.7 H Absolute Lymphocytes (Manual) 9.3 H Lymphocytes # Monocytes # Absolute Monocytes (Manual) 2.3 H Eosinophils # Basophils # Metamyelocytes # 0.2 H Nucleated Red Blood Cells # Platelet Estimate DECREASED Polychromasia 1+ Poikilocytosis 2+ Anisocytosis 1+ Microcytosis 1+ Spherocytes 1+ Sodium Level 126 L Potassium Level 5.1 Chloride Level 89 L Carbon Dioxide Level 22 Anion Gap 20 #H Blood Urea Nitrogen 45 H Creatinine 1.56 H Glucose Level 95 Calcium Level 9.3 Total Bilirubin 0.0 L Direct Bilirubin 0.00 Indirect Bilirubin 0.0 Aspartate Amino Transf (AST/SGOT) 31 Alanine Aminotransferase (ALT/SGPT) 16 Alkaline Phosphatase 280 H Total Protein 6.2 Albumin 2.4 L Globulin 3.80 H Albumin/Globulin Ratio 0.63 Test 02/24/17 05:17 02/24/17 08:40 02/24/17 11:15 Bedside Glucose 72 71 81 Medications Medications Current Medications Ondansetron HCl (Zofran Inj) 4 mg Q6H PRN IV NAUSEA AND/OR VOMITING Last administered on 02/05/17 09:36; Admin Dose 4 MG; Start 02/01/17 at 22:30 Acetaminophen (Tylenol Tab) 650 mg Q6H PRN PO PAIN LEVEL 1-3 OR FEVER Last administered on 02/19/17 04:25; Admin Dose 650 MG; Start 02/01/17 at 22:30; Status Future Hold Acetaminophen/ Hydrocodone Bitart ([place] (5/325)) 1 tab Q6H PRN PO MODERATE PAIN LEVEL 4-6 Last administered on 02/23/17 14:58; Admin Dose 1 TAB; Start at 22:30; Status Future hold Hydromorphone HCl (Dilaudid) 0.5 mg Q4H PRN IV SEVERE PAIN LEVEL 7-10 Last administered on 02/24/17 11:43; Admin Dose 0.5 MG; Start 02/01/17 at 22:30 Docusate Sodium (Colace) 100 mg Q12H PRN PO CONSTIPATION; Start 02/01/17 at 22: 30 Magnesium Hydroxide (Milk Of Mag) 30 ml DAILY PRN PO CONSTIPATION; Start at 22:30 Bisacodyl (Dulcolax) 5 mg DAILY PRN PO CONSTIPATION; Start 02/01/17 at 22:30 Zolpidem Tartrate (Ambien) 5 mg QHS PRN PO SLEEP; Start 02/01/17 at 22:30 Lansoprazole (Prevacid) 30 mg DAILY@06 GTB Last administered on 02/24/17 05:38 ; Admin Dose 30 MG; Start 02/02/17 at 06:00 Enoxaparin Sodium (Lovenox) 40 mg DAILY SC Last administered on 02/24/17 08:47 ; Admin Dose 40 MG; Start 02/02/17 at 09:00 Ascorbic Acid (Vitamin C) 500 mg BID GTB Last administered on 02/23/17 20:32; Admin Dose 500 MG; Start 02/02/17 at 09:00 Diazepam (Valium) 5 mg DAILY PRN GTB ANXIETY Last administered on 02/24/17 10: 43; Admin Dose 5 MG; Start 02/01/17 at 22:30 Duloxetine HCl (Cymbalta) 20 mg DAILY GTB Last administered on 02/18/17 08:45; Admin Dose 20 MG; Start 02/02/17 at 09:00 Multivitamins Therapeutic (Theragran) 1 tab DAILY GTB Last administered on 08:45; Admin Dose 1 TAB; Start 02/02/17 at 09:00 Zinc Sulfate (Zinc Sulfate) 220 mg DAILY GTB Last administered on 02/18/17 08: 45; Admin Dose 220 MG; Start 02/02/17 at 09:00 Lactobacillus Acidophilus (Florajen3 Capsule) 1 each TID NGT Last administered on 02/18/17 20:54; Admin Dose 1 EACH; Start 02/02/17 at 09:00 Lactulose (Enulose) 20 gm BID PO Last administered on 02/23/17 20:32; Admin Dose 20 GM; Start 02/02/17 at 09:00 Collagenase (Santyl) 1 applic DAILY TOP Last administered on 02/24/17 08:45; Admin Dose 1 APPLIC; Start 02/02/17 at 09:00 Collagenase 1 applic 1 applic PRN PRN TOP PRN; Start 02/02/17 at 04:00 Linezolid 300 ml @ 300 mls/hr Q12 IVPB Last administered on 02/24/17 08:42; Admin Dose 300 MLS/HR; Start 02/09/17 at 15:00 Metronidazole (Flagyl 500 Mg (Pmx)) 100 ml @ 100 mls/hr Q8 IVPB Last administered on 02/24/17 05:51; Admin Dose 100 MLS/HR; Start 02/09/17 at 14:00 Sodium Hypochlorite (Dakin'S (1/4 Strength)) 1 applic DAILY IRR Last administered on 02/24/17 08:45; Admin Dose 1 APPLIC; Start 02/10/17 at 13:30 IV Flush (NS 10 ml) 10 ml PRN PRN IV FLUSH LINE; Start 02/10/17 at 15:30 Mupirocin (Bactroban) 1 applic BID TOP Last administered on 02/24/17 08:45; Admin Dose 1 APPLIC; Start 02/11/17 at 14:00 Dextrose 25 ml 25 ml IACHS PRN IV DECREASED GLUCOSE Last administered on 10:01; Admin Dose 25 ML; Start 02/13/17 at 08:30 Total Parenteral Nutrition (Tpn) 1,000 ml @ 60 mls/hr [id number] IV Last administered on 02/24/17 01:44; Admin Dose 60 MLS/HR; Start 02/13/17 at 16:00 Dextrose (D50w Syringe) 50 ml IV PRN IV DECREASED GLUCOSE Last administered on 02/13/17 18:07; Admin Dose 50 ML; Start 02/13/17 at 14:30 Fentanyl (Duragesic 25 Mcg/Hr Patch) 1 patch Q72H TRANSDERM Last administered on 02/23/17 15:38; Admin Dose 1 PATCH; Start 02/14/17 at 15:30 IV Flush (NS 10 ml) 10 ml PRN PRN IV IV PROTOCOL; Start 02/15/17 at 21:30 Diagnostic Test (Pha) 1 ea 1 ea Q4 XX Last administered on 02/24/17 12:13; Admin Dose 1 EA; Start 02/20/17 at 09:00 Dextrose 1,000 ml @ 50 mls/hr Q20H IV Last administered on 02/24/17 13:38; Admin Dose 50 MLS/HR; Start 02/20/17 at 09:30 Acetaminophen 100 ml @ 400 mls/hr Q6H PRN IVPB FEVER Last administered on 22:06; Admin Dose 400 MLS/HR; Start 02/20/17 at 17:30 Caspofungin 50 mg/ Sodium Chloride 250 ml @ 250 mls/hr Q24H IVPB Last administered on 02/24/17 13:37; Admin Dose 250 MLS/HR; Start 02/22/17 at 13:00 Norepinephrine 32 mg/Dextrose 250 ml @ 0.46 mls/hr TITRATE IV Last administered on 02/23/17 16:00; Admin Dose 14.06 MLS/HR; Start 02/23/17 at 08:00 Phenylephrine HCl 80 mg/Dextrose 250 ml @ 18.75 mls/ hr TITRATE IV Last administered on 02/24/17 12:55; Admin Dose 56.25 MLS/HR; Start 02/23/17 at 08:00 Colistimethate Sodium/Sodium Chloride (Coly-Mycin/NS) 100 ml @ 200 mls/hr Q24H IVPB Last administered on 02/24/17 05:09; Admin Dose 200 MLS/HR; Start 02/24/17 at 04:00 DIONNE SAUCEDA MD Feb 24, 2017 14:13
[2017-02-24] MEDS ORDERED: FUROSEMIDE 40 MG INJ IV ONE (14:30)
[2017-02-24] MEDS ORDERED: SOD CHLORIDE 0.9% 500 ML IV ONE (14:30)
[2017-02-24] MEDS ORDERED: ALBUMIN HUMAN 25% 100 ML IV ONE (14:30)
--- NOTE | 2017-02-24 15:03 | PN ---
DATE: 02/24/2017 SUBJECTIVE DATA: No acute changes. The patient is lethargic, on pressors, in no distress. LABORATORY AND DIAGNOSTIC DATA: WBC 29.2, H and H 7.4 and 24.5, platelets 55; neutrophils 12.9. BUN 45, creatinine 1.56. Microbiology: Blood culture since February 21 negative. ANTIMICROBIALS: 1. Zyvox. 2. Cancidas. 3. Colistin. 4. Flagyl. INDWELLING: Trach, PEG, George, NG tube, PICC line. OBJECTIVE DATA: VITAL SIGNS: Temperature 99.5 yesterday, now 98.9, pulse 118, respirations 35, blood pressure 127/74, saturation 95 on 40 FiO2. GENERAL: This is a chronically ill-appearing, elderly woman, who is lying comfortably in bed. HEENT: Head atraumatic, normocephalic. Sclerae anicteric. Buccal mucosa dry. NECK: Supple. Tracheostomy present. CHEST: Rise symmetrical. Breath sounds diminished at the bases. HEART: S1, S2. ABDOMEN: Distended, soft. Bowel sounds hypoactive. EXTREMITIES: With trace edema. ASSESSMENT: 1. Septic shock with multisystem organ failure. 2. Unstageable decubiti. 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 3. Multidrug-resistant urinary tract infection. 4. Hyponatremia. 5. Acute renal failure. 6. Lung cancer. Questionable obstructive pneumonia. 7. Ileus. 8. Cachexia. 9. History of Clostridium difficile colitis. 10. ALLERGY TO PENICILLIN. PLAN: Patient remains unstable. She is being seen by multiple consultants. Continue present care. Patient is a CHEMICAL CODE ONLY. Prognosis poor. Dictated By: Johnny Chapa NP /[email or web address]/jil /Document#: [id number]
[2017-02-24] MEDS ORDERED: DEXTROSE 50% 50 ML SYRINGE IV STA (16:36)
--- NOTE | 2017-02-24 16:47 | PN ---
Date/Time of Note Date/Time of Note DATE: 02/24/17 TIME: 16:26 Assessment/Plan Lines/Catheters IV Catheter Type (from [facility]): Peripheral IV Urinary Cath still in place: Yes Assessment/Plan Assessment/Plan -Small bowel obstruction. Continue G-tube to low wall suctioning. Dr Gonzales is following in gastroenterology consultation. -Sepsis, most likely secondary to urinary tract infection and possible postobstructive pneumonia. Dr. Coleman is following infection disease consultation, continue antibiotics per ID. -Hyponatremia, Dr. Zapata is following a nephrology consultation, continue IV fluids per renal. 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 -Ventilator dependent respiratory failure with tracheostomy, continue breathing treatments. 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 Exam/Review of Systems Vital Signs Vitals Vital Signs Date Time Temp Pulse Resp B/P Pulse Ox O2 Delivery O2 Flow Rate FiO2 02/24/17 12:45 121 39 128/100 02/24/17 12:30 Mechanical Ventilator 02/24/17 12:00 98.9 02/24/17 11:30 95 40 Intake and Output 02/23/17 02/23/17 02/24/17 15:00 23:00 07:00 Intake Total 1474.36 ml 1088.73 ml 1146.5 ml Output Total 390 ml 1100 ml Balance 1084.36 ml -11.27 ml 1146.5 ml Results Result Diagram: 02/24/17 0445 02/24/17 0445 Results 24 hrs Laboratory Tests Test 02/23/17 17:02 02/23/17 21:29 02/24/17 01:42 02/24/17 04:45 Bedside Glucose 85 99 76 White Blood Count 29.2 H Red Blood Count 2.83 L Hemoglobin 7.4 L Hematocrit 24.5 L Mean Corpuscular Volume 86.6 Mean Corpuscular Hemoglobin 26.1 L Mean Corpuscular Hemoglobin Concent 30.2 L Red Cell Distribution Width 18.6 H Platelet Count 55 L Mean Platelet Volume 12.9 H Neutrophils % Segmented Neutrophils % (Manual) 52 Band Neutrophils % (Manual) 6 H Lymphocytes % Lymphocytes % (Manual) 32 Monocytes % Monocytes % (Manual) 8 Eosinophils % Eosinophils % (Manual) 1 Basophils % Metamyelocytes % (manual) 1 H Nucleated Red Blood Cells % 0.1 H Neutrophils # (Manual) 15.7 H Band Neutrophils # 1.7 H Absolute Lymphocytes (Manual) 9.3 H Lymphocytes # Monocytes # Absolute Monocytes (Manual) 2.3 H Eosinophils # Basophils # Metamyelocytes # 0.2 H Nucleated Red Blood Cells # Platelet Estimate DECREASED Polychromasia 1+ Poikilocytosis 2+ Anisocytosis 1+ Microcytosis 1+ Spherocytes 1+ Sodium Level 126 L Potassium Level 5.1 Chloride Level 89 L Carbon Dioxide Level 22 Anion Gap 20 #H Blood Urea Nitrogen 45 H Creatinine 1.56 H Glucose Level 95 Calcium Level 9.3 Total Bilirubin 0.0 L Direct Bilirubin 0.00 Indirect Bilirubin 0.0 Aspartate Amino Transf (AST/SGOT) 31 Alanine Aminotransferase (ALT/SGPT) 16 Alkaline Phosphatase 280 H Total Protein 6.2 Albumin 2.4 L Globulin 3.80 H Albumin/Globulin Ratio 0.63 Test 02/24/17 05:17 02/24/17 08:40 02/24/17 11:15 Bedside Glucose 72 71 81 Medications Medications Current Medications Ondansetron HCl (Zofran Inj) 4 mg Q6H PRN IV NAUSEA AND/OR VOMITING Last administered on 02/05/17 09:36; Admin Dose 4 MG; Start 02/01/17 at 22:30 Acetaminophen (Tylenol Tab) 650 mg Q6H PRN PO PAIN LEVEL 1-3 OR FEVER Last administered on 02/19/17 04:25; Admin Dose 650 MG; Start 02/01/17 at 22:30; Status Future Hold Acetaminophen/ Hydrocodone Bitart ([place] (5/325)) 1 tab Q6H PRN PO MODERATE PAIN LEVEL 4-6 Last administered on 02/23/17 14:58; Admin Dose 1 TAB; Start at 22:30; Status Future hold Hydromorphone HCl (Dilaudid) 0.5 mg Q4H PRN IV SEVERE PAIN LEVEL 7-10 Last administered on 02/24/17 11:43; Admin Dose 0.5 MG; Start 02/01/17 at 22:30 Docusate Sodium (Colace) 100 mg Q12H PRN PO CONSTIPATION; Start 02/01/17 at 22: 30 Magnesium Hydroxide (Milk Of Mag) 30 ml DAILY PRN PO CONSTIPATION; Start at 22:30 Bisacodyl (Dulcolax) 5 mg DAILY PRN PO CONSTIPATION; Start 02/01/17 at 22:30 Zolpidem Tartrate (Ambien) 5 mg QHS PRN PO SLEEP; Start 02/01/17 at 22:30 Lansoprazole (Prevacid) 30 mg DAILY@06 GTB Last administered on 02/24/17 05:38 ; Admin Dose 30 MG; Start 02/02/17 at 06:00 Enoxaparin Sodium (Lovenox) 40 mg DAILY SC Last administered on 02/24/17 08:47 ; Admin Dose 40 MG; Start 02/02/17 at 09:00 Ascorbic Acid (Vitamin C) 500 mg BID GTB Last administered on 02/23/17 20:32; Admin Dose 500 MG; Start 02/02/17 at 09:00 Diazepam (Valium) 5 mg DAILY PRN GTB ANXIETY Last administered on 02/24/17 10: 43; Admin Dose 5 MG; Start 02/01/17 at 22:30 Duloxetine HCl (Cymbalta) 20 mg DAILY GTB Last administered on 02/18/17 08:45; Admin Dose 20 MG; Start 02/02/17 at 09:00 Multivitamins Therapeutic (Theragran) 1 tab DAILY GTB Last administered on 08:45; Admin Dose 1 TAB; Start 02/02/17 at 09:00 Zinc Sulfate (Zinc Sulfate) 220 mg DAILY GTB Last administered on 02/18/17 08: 45; Admin Dose 220 MG; Start 02/02/17 at 09:00 Lactobacillus Acidophilus (Florajen3 Capsule) 1 each TID NGT Last administered on 02/18/17 20:54; Admin Dose 1 EACH; Start 02/02/17 at 09:00 Lactulose (Enulose) 20 gm BID PO Last administered on 02/23/17 20:32; Admin Dose 20 GM; Start 02/02/17 at 09:00 Collagenase (Santyl) 1 applic DAILY TOP Last administered on 02/24/17 08:45; Admin Dose 1 APPLIC; Start 02/02/17 at 09:00 Collagenase 1 applic 1 applic PRN PRN TOP PRN; Start 02/02/17 at 04:00 Linezolid 300 ml @ 300 mls/hr Q12 IVPB Last administered on 02/24/17 08:42; Admin Dose 300 MLS/HR; Start 02/09/17 at 15:00 Metronidazole (Flagyl 500 Mg (Pmx)) 100 ml @ 100 mls/hr Q8 IVPB Last administered on 02/24/17 14:58; Admin Dose 100 MLS/HR; Start 02/09/17 at 14:00 Sodium Hypochlorite (Dakin'S (1/4 Strength)) 1 applic DAILY IRR Last administered on 02/24/17 08:45; Admin Dose 1 APPLIC; Start 02/10/17 at 13:30 IV Flush (NS 10 ml) 10 ml PRN PRN IV FLUSH LINE; Start 02/10/17 at 15:30 Mupirocin (Bactroban) 1 applic BID TOP Last administered on 02/24/17 08:45; Admin Dose 1 APPLIC; Start 02/11/17 at 14:00 Dextrose 25 ml 25 ml IACHS PRN IV DECREASED GLUCOSE Last administered on 10:01; Admin Dose 25 ML; Start 02/13/17 at 08:30 Total Parenteral Nutrition (Tpn) 1,000 ml @ 60 mls/hr [id number] IV Last administered on 02/24/17 01:44; Admin Dose 60 MLS/HR; Start 02/13/17 at 16:00 Dextrose (D50w Syringe) 50 ml IV PRN IV DECREASED GLUCOSE Last administered on 02/13/17 18:07; Admin Dose 50 ML; Start 02/13/17 at 14:30 Fentanyl (Duragesic 25 Mcg/Hr Patch) 1 patch Q72H TRANSDERM Last administered on 02/23/17 15:38; Admin Dose 1 PATCH; Start 02/14/17 at 15:30 IV Flush (NS 10 ml) 10 ml PRN PRN IV IV PROTOCOL; Start 02/15/17 at 21:30 Diagnostic Test (Pha) 1 ea 1 ea Q4 XX Last administered on 02/24/17 12:13; Admin Dose 1 EA; Start 02/20/17 at 09:00 Dextrose 1,000 ml @ 50 mls/hr Q20H IV Last administered on 02/24/17 13:38; Admin Dose 50 MLS/HR; Start 02/20/17 at 09:30 Acetaminophen 100 ml @ 400 mls/hr Q6H PRN IVPB FEVER Last administered on 22:06; Admin Dose 400 MLS/HR; Start 02/20/17 at 17:30 Caspofungin 50 mg/ Sodium Chloride 250 ml @ 250 mls/hr Q24H IVPB Last administered on 02/24/17 13:37; Admin Dose 250 MLS/HR; Start 02/22/17 at 13:00 Norepinephrine 32 mg/Dextrose 250 ml @ 0.46 mls/hr TITRATE IV Last administered on 02/23/17 16:00; Admin Dose 14.06 MLS/HR; Start 02/23/17 at 08:00 Phenylephrine HCl 80 mg/Dextrose 250 ml @ 18.75 mls/ hr TITRATE IV Last administered on 02/24/17 12:55; Admin Dose 56.25 MLS/HR; Start 02/23/17 at 08:00 Colistimethate Sodium/Sodium Chloride (Coly-Mycin/NS) 100 ml @ 200 mls/hr Q24H IVPB Last administered on 02/24/17 05:09; Admin Dose 200 MLS/HR; Start 02/24/17 at 04:00 VIKASH CASTANEDA Feb 24, 2017 16:36
--- NOTE | 2017-02-24 19:49 | QN ---
Documentation Comment I have been consulted to see the patient for declaration of On exam: General: Unresponsive Head: Normocephalic, atraumatic Eyes: Fixed and dilated pupils ENT: Dry mucous membranes neck: Supple Respiratory: No spontaneous respiratory activity, mechanical breath sounds with ventilator active Cardiovascular: No spontaneous cardiac activity Abdominal: Soft, non-protuberant : Deferred MSK: No spontaneous motor activity Neurologic: No spontaneous neurologic activity Skin: No evidence of trauma Assessment and plan: The patient exhibits no signs of life. The patient has no spontaneous neurologic, respiratory, cardiac activity. The patient went asystolic on the monitor at 1806. Time of 1806. Diagnostic impression: KANE RAMIREZ MD Feb 24, 2017 19:49
--- NOTE | 2017-02-24 21:55 | CONS ---
Date/Time of Note Date/Time of Note DATE: 02/24/17 TIME: 11:55 vk le Assessment/Plan Assessment/Plan Chief Complaint/Hosp Course -Anemia, POST PRBC transfuse packed red blood cells as needed continue to monitor H&H. COMPLEX, MULTIFACTORIAL -Left lung squamous carcinoma, NOW WITH POS LIVER METS supportive care no aggressive treatment planned HYPERCALCEMIA POST AREDIA CA-IMPROVED - SBO NOW ON CONSERVATIVE MANAGEMENT -Sepsis, most likely secondary to urinary tract infection and possible postobstructive pneumonia. Dr. Coleman is following infection disease consultation, follow-up on cultures, continue antibiotics per ID. -Hyponatremia, nephrology f-up, continue IV fluids per renal. -Ventilator dependent respiratory failure with tracheostomy, continue breathing treatments. -COPD -Dysphagia with PEG -History of cardiopulmonary arrest -Multiple wounds present on admission, that is post debridement at last admission. -Hypothyroidism -Chronic urinary retention with George catheter PROGNOSIS- POOR Problems: Consultation Date/Type/Reason Admit Date/Time Feb 01, 2017 at 15:50 Initial Consult Date 02/08/17 Type of Consultation: hemeon Referring Provider: DRE LOBATO MD Exam/Review of Systems Vital Signs Vitals Vital Signs Date Time Temp Pulse Resp B/P Pulse Ox O2 Delivery O2 Flow Rate FiO2 02/24/17 18:15 0 14 02/24/17 18:12 96 40 02/24/17 16:45 50/34 Mechanical Ventilator 02/24/17 16:00 97.2 Intake and Output 02/23/17 02/23/17 02/24/17 15:00 23:00 07:00 Intake Total 1474.36 ml 1088.73 ml 1146.5 ml Output Total 390 ml 1100 ml Balance 1084.36 ml -11.27 ml 1146.5 ml Results Result Diagram: 02/24/17 0445 02/24/17 0445 Results 24 hrs Laboratory Tests Test 02/24/17 01:42 02/24/17 04:45 02/24/17 05:17 02/24/17 08:40 Bedside Glucose 76 72 71 White Blood Count 29.2 H Red Blood Count 2.83 L Hemoglobin 7.4 L Hematocrit 24.5 L Mean Corpuscular Volume 86.6 Mean Corpuscular Hemoglobin 26.1 L Mean Corpuscular Hemoglobin Concent 30.2 L Red Cell Distribution Width 18.6 H Platelet Count 55 L Mean Platelet Volume 12.9 H Neutrophils % Segmented Neutrophils % (Manual) 52 Band Neutrophils % (Manual) 6 H Lymphocytes % Lymphocytes % (Manual) 32 Monocytes % Monocytes % (Manual) 8 Eosinophils % Eosinophils % (Manual) 1 Basophils % Metamyelocytes % (manual) 1 H Nucleated Red Blood Cells % 0.1 H Neutrophils # (Manual) 15.7 H Band Neutrophils # 1.7 H Absolute Lymphocytes (Manual) 9.3 H Lymphocytes # Monocytes # Absolute Monocytes (Manual) 2.3 H Eosinophils # Basophils # Metamyelocytes # 0.2 H Nucleated Red Blood Cells # Platelet Estimate DECREASED Polychromasia 1+ Poikilocytosis 2+ Anisocytosis 1+ Microcytosis 1+ Spherocytes 1+ Sodium Level 126 L Potassium Level 5.1 Chloride Level 89 L Carbon Dioxide Level 22 Anion Gap 20 #H Blood Urea Nitrogen 45 H Creatinine 1.56 H Glucose Level 95 Calcium Level 9.3 Total Bilirubin 0.0 L Direct Bilirubin 0.00 Indirect Bilirubin 0.0 Aspartate Amino Transf (AST/SGOT) 31 Alanine Aminotransferase (ALT/SGPT) 16 Alkaline Phosphatase 280 H Total Protein 6.2 Albumin 2.4 L Globulin 3.80 H Albumin/Globulin Ratio 0.63 Test 02/24/17 11:15 02/24/17 16:29 Bedside Glucose 81 59 L DYLLAN CARRION MD Feb 24, 2017 21:55
== END 2017-02-24 18:16 | disposition expired | DRG 870 ==
LOC: E/R 12:26 → TEL 15:50 → ICU 02-09 12:56 → TEL 02-18 13:06 → ICU 02-19 21:56
PROVIDERS: ADMIT Internal Medicine; ATTEND Internal Medicine
PROC: 5A1955Z Respiratory Ventilation, Greater than 96 Consecutive Hours (ICD-10-PCS; 2017-02-01)
PROC: 30233N1 Transfusion of Nonautologous Red Blood Cells into Peripheral Vein, Percutaneous Approach (ICD-10-PCS; 2017-02-07)
PROC: 02HV33Z Insertion of Infusion Device into Superior Vena Cava, Percutaneous Approach (ICD-10-PCS; principal; 2017-02-10)
DX: A41.9 Sepsis, unspecified organism (principal); R65.21 Severe sepsis with septic shock; E43 Unspecified severe protein-calorie malnutrition; L89.154 Pressure ulcer of sacral region, stage 4; I50.33 Acute on chronic diastolic (congestive) heart failure; J18.9 Pneumonia, unspecified organism; Z99.11 Dependence on respirator [ventilator] status; J96.10 Chronic respiratory failure, unspecified whether with hypoxia or hypercapnia; L89.213 Pressure ulcer of right hip, stage 3; K56.60 Unspecified intestinal obstruction; E22.2 Syndrome of inappropriate secretion of antidiuretic hormone; C34.90 Malignant neoplasm of unspecified part of unspecified bronchus or lung; R64 Cachexia; C78.7 Secondary malignant neoplasm of liver and intrahepatic bile duct; M46.28 Osteomyelitis of vertebra, sacral and sacrococcygeal region; D63.0 Anemia in neoplastic disease; J44.9 Chronic obstructive pulmonary disease, unspecified; G89.4 Chronic pain syndrome; F32.9 Major depressive disorder, single episode, unspecified; Z93.0 Tracheostomy status; E03.9 Hypothyroidism, unspecified; R33.9 Retention of urine, unspecified; B96.89 Other specified bacterial agents as the cause of diseases classified elsewhere; E16.2 Hypoglycemia, unspecified; E87.6 Hypokalemia; E83.52 Hypercalcemia; L89.620 Pressure ulcer of left heel, unstageable; L89.610 Pressure ulcer of right heel, unstageable; Z16.24 Resistance to multiple antibiotics; Z68.23 Body mass index [BMI] 23.0-23.9, adult; Z86.74 Personal history of sudden cardiac arrest; Z22.322 Carrier or suspected carrier of Methicillin resistant Staphylococcus aureus; Z93.1 Gastrostomy status
CPT/HCPCS: 36415; 36430; 36569; 36600; 71010; 74000; 74176; 74250; 76937; 80048; 80053; 80076; 80202; 81001; 82040; 82150; 82330; 82803; 82962; 83605; 83690; 83735; 84100; 84134; 84295; 84478; 84484; 85014; 85018; 85025; 85610; 85730; 86850; 86900; 86901; 86920; 87040; 87045; 87070; 87081; 87086; 89220; 93005; 94002; 94003; 94640; 94664; 96374; 96375; 96376; J1940; J2430; J0131; J0692; J1100; J1170; J1650; J2405; J3010; J3370; J3475; J3480; J7030; J7040; J7042; J7050; J7060; J7070; P9016; P9047; Q9967